=== PATIENT | female | born 1945 | race Caucasian/White ===

== ENCOUNTER 2022-10-28 13:36 | Outpatient (OUT) | payer MEDICARE, SELFPAY ==
--- NOTE | 2022-10-28 | CONS_ITS ---
CONSULTATION DATE: ??10/28/2022 TO:? Marine Glass M.D. CHIEF COMPLAINT:? Includes severe right lower back pain. HISTORY OF PRESENT ILLNESS:? Review of systems, past medical/surgical history were obtained and documented on the health questionnaire and is available upon request. Patient is 77 years old and is having pain in the above mentioned area for the last 20 years.? However, over the last 2-3 years, her pain has been increasing in severity, to the point where she now complains of 7-8/10 pain, sharp in character, with a deep aching component in her right lower back.? It seems to increase with activities such as standing, walking and performing transitioning maneuvers.? She feels most comfortable sitting or assuming the semi-recumbent position.? She denies any change in bowel and bladder habits or new sensorimotor changes in the lower extremities.? EXAMINATION:? Notable for patient having no clinical radiculopathy or myelopathy involving the lower extremities.? Patient had severe pain with lumbar facet joint loading maneuvers on the right side at L4-5 and L5-S1 and associated myofascial spasm of the lumbar paravertebral muscles.? She had point tenderness overlying the L4-5, L5-S1 interspace, and a moderate amount of pain with lumbar axial loading maneuvers.? I could not appreciate any signs consistent with a pathological fracture of her vertebral bodies in the lumbar area.? IMPRESSION:? Our impression is patient appears to have chronic pain secondary to lumbosacral spondylosis and facet loading pain clinically. RECOMMENDATIONS:? I recommend she undergo a lumbosacral MRI without contrast for her lumbago.? Proceed with lumbosacral spine films, PA and lateral views.? I have placed her on baclofen 10 mg pills, half a pill to one pill up to t.i.d. as tolerated and proceed with diagnostic right sided L4-5, L5-S1 facet joint injection under fluoroscopic guidance.? Lastly, I have asked her to initiate aquatic therapy. As part of providing excellent, safe, comprehensive care, the following was completed at our patient's visit: 1. A medication reconciliation and review to ensure accurate knowledge of current/active medications, including asking our patients to inform us about any psjr-shs-hksejsy medications or herbal remedies/nutritional supplements/alternative remedies. 2. A review to specifically ensure our patients have had annual screening for: elevated body mass index (BMI, see intake chart for exact total), tobacco use, screening for depression, and screening for unhealthy alcohol use.? When screening is concerning, patients are provided with education and the specific recommendation to discuss the concerning health issue and treatment options with their primary care provider. STEFAN
== END 2022-10-28 13:37 | disposition home or self-care (01) ==
LOC: PM 13:37
PROVIDERS: PCP Family Medicine; Visit Provider Anesthesiology Pain Medicine
DX: M47.817 Spondylosis without myelopathy or radiculopathy, lumbosacral region (principal); M54.50 Low back pain, unspecified; G89.29 Other chronic pain
CPT/HCPCS: G0463

== ENCOUNTER 2022-10-30 07:53 | Outpatient (RCR) | payer MEDICARE, SELFPAY | END 2022-12-26 13:26 | disposition home or self-care (01) | LOC: PT 07:53 | PROVIDERS: PCP Family Medicine; Visit Provider Anesthesiology Pain Medicine | DX: M47.816 Spondylosis without myelopathy or radiculopathy, lumbar region (principal); Z96.641 Presence of right artificial hip joint | CPT/HCPCS: 97110; 97112; 97113; 97161; 97530 ==

== ENCOUNTER 2022-11-18 07:02 | Day surgery (SDC) | payer MEDICARE, SELFPAY ==
[2022-11-18 07:13] VITALS: BP 104/58; PULSE 59; RESP 16; TEMP 36.4; O2SAT 97
[2022-11-18 07:56] VITALS: BP 129/60; PULSE 54; RESP 20; O2SAT 97
[2022-11-18] MEDS: BUPIVACAINE HCL 0.25% PF 25 MG/10 ML VIAL 4 ML INJ (07:58)
[2022-11-18 07:59] VITALS: BP 129/67; PULSE 55; O2SAT 97
--- NOTE | 2022-11-18 08:57 | W.PM.PROCNOT ---
Date of procedure: 11/18/22 Pre-op diagnosis: Lumbar Spondylosis Post-op diagnosis: same Procedure: Right Lumbar L4/5, L5/S1 facet injection Under fluoroscopic guidance Solution injected: 2millilitersMarcaine 0.25% Anesthesia :none Immediate complications none Time out process compliant After informed consent obtained from the patient placed in the Prone proposition . area was prepped and draped in a sterile fashion using betadine. 25 gauge spinal needle inserted over each of the above mentioned target areas . [place] were directed towards the target under fluoroscopic guidance . after encountering each of the targets , no indication of intravascular intraneuronal or intrathecal needle tip placement. Then 0 .5 to 1 Milliliter was injected at each level. [place] removed postoperatively. patient transferred to recovery in stable condition to be discharged home after meeting criteria Surgeon: Eliecer Rene
== END 2022-11-18 08:04 | disposition home or self-care (01) ==
PROVIDERS: PCP Family Medicine; Visit Provider Anesthesiology Pain Medicine
DX: M47.816 Spondylosis without myelopathy or radiculopathy, lumbar region (principal)
CPT/HCPCS: 64493; 64494; 72100

== ENCOUNTER 2022-11-18 08:08 | Outpatient (OUT) | payer MEDICARE, SELFPAY ==
--- NOTE | 2022-11-18 08:17 | XR_ITS ---
[facility] [place] [address] Patient Name: NGUYEN MARQUEZ MRN: [id number] date: 1945 Sex: F Assigned Patient Location: [facility] Current Patient Location: [facility] Accession/Order Number: [id number] Exam Date: 11/18/2022 08:24 Report Date: 11/18/2022 09:24 At the request of: NAYELI PALOMINO Procedure: XR lumbar spine 2-3V EXAMINATION: XR lumbar spine 2-3V HISTORY: Lumbar Spondylosis COMPARISON: No relevant comparison available. FINDINGS: BONES: Mild levocurvature centered at L3. No acute fracture or spondylolisthesis. Mild degenerative spondylosis. Moderate facet osteoarthropathy DISC SPACES: Mild to moderate multilevel narrowing most significant L4-S1 PARASPINOUS: Negative. No paraspinous abnormality is seen. OTHER: Vascular calcifications XR/XR lumbar spine 2-3V IMPRESSION: Mild to moderate degenerative changes with levocurvature Electronically authenticated by: EILEEN KRUSE Date: 11/18/2022 09:24
== END 2022-11-18 08:09 | disposition home or self-care (01) ==
LOC: RAD 08:10
PROVIDERS: PCP Family Medicine; Visit Provider Anesthesiology Pain Medicine
DX: M47.816 Spondylosis without myelopathy or radiculopathy, lumbar region (principal)
CPT/HCPCS: 72100

== ENCOUNTER 2022-11-28 08:24 | Outpatient (OUT) | payer MEDICARE, SELFPAY ==
--- NOTE | 2022-11-28 08:38 | P.CN_ITS ---
Consult Note: HPI Data of Consult Patient: known to practice within the last 3 years Requesting Physician: Larissa Turner NP Primary Care Provider: Marine Glass MD Consult Narrative cc:: CC: Larissa Turner NP Review of Systems ROS Status of ROS 10 or more systems reviewed and unremarkable except as noted in history and below [facility] Medical History (Updated 11/28/22 @ 08:52 by Larissa Turner NP) Surgical History Meds Home Medications and Allergies Home Medications Medication Instructions Recorded Confirmed Type apixaban 5 mg tablet (Eliquis) 5 mg PO BID 10/28/22 11/18/22 History atenolol 50 mg tablet 75 mg PO DAILY 10/28/22 11/18/22 History baclofen 10 mg tablet 10 mg PO TID 10/28/22 11/18/22 History hydrochlorothiazide 25 mg tablet 25 mg PO DAILY 10/28/22 11/18/22 History lisinopril 20 mg tablet 20 mg PO DAILY 10/28/22 11/18/22 History melatonin 12 mg tablet 30 mg PO DAILY 10/28/22 11/18/22 History multivitamin with iron .Route DAILY 10/28/22 History neuveria vitamin DAILY 10/28/22 History omeprazole 20 mg tablet,delayed 20 mg PO DAILY 10/28/22 11/18/22 History release potassium 10 mg PO DAILY 10/28/22 11/18/22 History temazepam 30 mg capsule 30 mg PO DAILY 10/28/22 11/18/22 History Allergies Allergy/AdvReac Type Severity Reaction Status Date / Time codeine Allergy Unknown Verified 11/18/22 07:16 levofloxacin [From Levaquin] Allergy Unknown Verified 11/18/22 07:16 morphine Allergy Unknown Verified 11/18/22 07:16 Penicillins Allergy Unknown Verified 11/18/22 07:16 tramadol Allergy Unknown Verified 11/18/22 07:16 Exam Constitutional Common normals: no apparent distress, average body habitus, oriented x3, healthy appearing, alert and well nourished General appearance: cooperative HENMT Common normals: normocephalic Head and scalp: normocephalic Mouth: oral and palatal mucosa normal Eye Common normals: PERRL Pupil: PERRL Neck & C-Spine Common normals: full ROM General: normal visual inspection Chest Common normals: inspection of chest normal Respiratory Common normals: normal respiratory effort, no retractions and no use of accessory muscles Back & Pelvis Thoracic spine/upper back: normal to inspection and thoracic ROM normal Lumbar spine/lower back: normal to inspection, lumbar ROM normal, pain with ROM and paraspinal muscle tenderness Pelvis: buttocks normal Sacroiliac joints: SI joints normal Back image (female): 1. pain with right side facet bearing motion Neuro Common normals: oriented x3, CN's II-XII intact bilaterally, moves all extremities, no focal motor deficits, no sensory deficits noted, deep tendon reflexes 2+ bilaterally and gait normal Sensorium/orientation: alert Motor exam: strength 5/5 throughout and no movement abnormalities noted Psych Common normals: mental status grossly normal, thought process normal, cooperative, affect normal, speech normal and activity/motor behavior normal Speech: normal speech Thought process: normal thought process Assessment and Plan Assessment and Plan (1) Lumbar spondylosis: (2) Spondylosis of lumbar region without myelopathy or radiculopathy: (3) Muscle spasm: Plan Pt presents for evaluation after first L4/5 L5/S1 MBB. Patient received 90% relief of pain and was able to complete activities such as cleaning her garage, mowing her grass, and power washing with 1/10 pain fror the first few hours after her procedure. Pt is seldomly taking aleve for pain, baclofen PRN for muscle tightness and spasms. No radiculopathy present. Patient would like to proceed with #2 test injection at l4/5 L5/S1 working towards RFA at these levels. Patient starting PT for right hip next week, pt had right hip replacement 2021. No questions at this time. Will f/u in office after next injection.
== END 2022-11-28 08:25 | disposition home or self-care (01) ==
PROVIDERS: PCP Family Medicine; Visit Provider Nurse Practitioner
DX: M47.816 Spondylosis without myelopathy or radiculopathy, lumbar region (principal); M62.838 Other muscle spasm
CPT/HCPCS: G0463

== ENCOUNTER 2022-12-16 06:44 | Day surgery (SDC) | payer MEDICARE, SELFPAY ==
[2022-12-16 07:08] VITALS: BP 142/79; PULSE 68; RESP 16; TEMP 36.2; O2SAT 97
[2022-12-16 07:31] VITALS: BP 141/70; BP 154/66; PULSE 55; PULSE 56; RESP 20; O2SAT 95; O2SAT 97
[2022-12-16] MEDS: BUPIVACAINE HCL 0.25% PF 25 MG/10 ML VIAL 4 ML INJ (07:32)
--- NOTE | 2022-12-16 08:24 | P.ON_ITS ---
Date of procedure: 12/16/22 Pre-op diagnosis: lumbar spondylosis Post-op diagnosis: same as pre-op Procedure: Right lumbar 4/5, 5/sacral 1 medial branch block Under fluoroscopic guidance Solution injected: 2millilitersMarcaine 0.25% Anesthesia :none Immediate complications none Time out process compliant After informed consent obtained from the patient placed in the Prone proposition . area was prepped and draped in a sterile fashion using Cloraprep .25 gauge spinal needle inserted over each of the above mentioned target areas . [place] were directed towards the target under fluoroscopic guidance . after encountering each of the targets , no indication of intravascular intraneuronal or intrathecal needle tip placement. Then 0 .5 to 1 Milliliter was injected at each level. [place] removed postoperatively. patient transferred to recovery in stable condition to be discharged home after meeting criteria Anesthesia: Local Surgeon: Eliecer Rene Condition: stable
== END 2022-12-16 07:35 | disposition home or self-care (01) ==
PROVIDERS: PCP Family Medicine; Visit Provider Anesthesiology Pain Medicine
DX: M47.816 Spondylosis without myelopathy or radiculopathy, lumbar region (principal)
CPT/HCPCS: 64493; 64494

== ENCOUNTER 2022-12-24 13:06 | Outpatient (OUT) | payer MEDICARE, SELFPAY ==
--- NOTE | 2022-12-24 13:50 | PM.CN ---
Consult Note: HPI Data of Consult Patient: known to practice within the last 3 years Requesting Physician: Larissa Turner NP Primary Care Provider: Marine Glass MD Consult Narrative Reason for consult: MBB #2 right L4/5 L5/S1 f/u Narrative: Bettie Burns a pleasant 77 year old female presents for evaluation of low back pain and right hip pain. Patient recently underwent MBB #2 on the right L4/5 L5/s1 with 100% pain relief and functional improvement immediately following and for hours after the procedure. Patient would like to discuss RFAs. Today is rating her pain 3/10. cc:: CC: Larissa Turner NP Review of Systems ROS Status of ROS 10 or more systems reviewed and unremarkable except as noted in history and below Musculoskeletal Reports: back pain and joint pain (right hip) [facility] Medical History (Updated 11/28/22 @ 08:52 by Larissa Turner NP) Surgical History Meds Home Medications and Allergies Home Medications Medication Instructions Recorded Confirmed Type apixaban 5 mg tablet (Eliquis) 5 mg PO BID 10/28/22 12/16/22 History atenolol 50 mg tablet 75 mg PO DAILY 10/28/22 12/16/22 History baclofen 10 mg tablet 10 mg PO TID 10/28/22 12/16/22 History hydrochlorothiazide 25 mg tablet 25 mg PO DAILY 10/28/22 12/16/22 History lisinopril 20 mg tablet 20 mg PO DAILY 10/28/22 12/16/22 History melatonin 12 mg tablet 30 mg PO DAILY 10/28/22 12/16/22 History multivitamin with iron .Route DAILY 10/28/22 History neuveria vitamin DAILY 10/28/22 History omeprazole 20 mg tablet,delayed 20 mg PO DAILY 10/28/22 12/16/22 History release potassium 10 mg PO DAILY 10/28/22 12/16/22 History temazepam 30 mg capsule 30 mg PO DAILY 10/28/22 12/16/22 History Allergies Allergy/AdvReac Type Severity Reaction Status Date / Time codeine Allergy Unknown Verified 12/16/22 07:29 levofloxacin [From Levaquin] Allergy Unknown Verified 12/16/22 07:29 morphine Allergy Unknown Verified 12/16/22 07:29 Penicillins Allergy Unknown Verified 12/16/22 07:29 tramadol Allergy Unknown Verified 12/16/22 07:29 Exam Constitutional Documenting provider has reviewed patient's vital signs: yes Common normals: no apparent distress, oriented x3, healthy appearing, alert and well nourished General appearance: cooperative Nutritional appearance: overweight HENMT Common normals: normocephalic, hearing grossly normal bilaterally and moist oral mucous membranes Head and scalp: normocephalic Eye Common normals: PERRL Pupil: PERRL Neck & C-Spine Common normals: full ROM General: normal visual inspection Chest Common normals: inspection of chest normal Respiratory Common normals: normal respiratory effort, no retractions and no use of accessory muscles Back & Pelvis Thoracic spine/upper back: normal to inspection Lumbar spine/lower back: normal to inspection, ROM limited, pain with ROM and straight leg raise negative bilaterally Sacroiliac joints: SI joints normal Other: facet loading positive bilaterally. Neuro Common normals: oriented x3, CN's II-XII intact bilaterally, moves all extremities, no focal motor deficits, no sensory deficits noted and deep tendon reflexes 2+ bilaterally Sensorium/orientation: alert Motor exam: strength 5/5 throughout and no movement abnormalities noted Psych Common normals: mental status grossly normal, thought process normal, cooperative, affect normal, speech normal and activity/motor behavior normal Speech: normal speech Thought process: normal thought process Results Additional Findings Additional findings: I have checked an OARRS report on this patient today and there are no aberrancies noted in the prescribing history.?? A drug screen was completed and reviewed within the last year, and if there has not been a drug screen completed we ordered one today to monitor higher risk, state monitored pain medication use. As part of providing excellent, safe, comprehensive care, the following was completed at our patient's visit: 1. A medication reconciliation and review to ensure accurate knowledge of current/active medications, including asking our patients to inform us about any iktu-iuj-srdvgnq medications or herbal remedies/nutritional supplements/alternative remedies. 2. A review to specifically ensure our patients have had annual screening for: elevated body mass index (BMI), tobacco use, screening for depression, and screening for unhealthy alcohol use. When screening is concerning, patients are provided with education and the specific recommendation to discuss the concerning health issue and treatment options with their primary care provider. TEJA today 29% with moderate pain, can only lift very light weights, travel and social life impacted by pain. Assessment and Plan Assessment and Plan (1) Lumbar spondylosis: (2) Muscle spasm: Plan proceed with thermal RFA under fluoroscopy on right L4/5 L5/s1 without sedation for chronic axial low back pain unresponsive to conservative measures. Risks vs benefits discussed. continue Pt continue baclofen 10mg HS
== END 2022-12-24 13:07 | disposition home or self-care (01) ==
LOC: PM 13:06
PROVIDERS: PCP Family Medicine; Visit Provider Nurse Practitioner
DX: M47.816 Spondylosis without myelopathy or radiculopathy, lumbar region (principal); M62.838 Other muscle spasm
CPT/HCPCS: G0463

== ENCOUNTER 2023-01-20 06:47 | Day surgery (SDC) | payer MEDICARE, SELFPAY ==
[2023-01-20 06:54] VITALS: BP 134/63; PULSE 57; RESP 16; O2SAT 99
[2023-01-20] MEDS: 0.9 % SODIUM CHLORIDE 500 ML 50 ML IV (07:11)
[2023-01-20] MEDS: BUPIVACAINE HCL 0.25% PF 25 MG/10 ML VIAL 4 ML INJ (07:38)
[2023-01-20] MEDS: LIDOCAINE HCL 2% 400 MG/20 ML MDV 8 ML INJ (07:38)
[2023-01-20] MEDS: METHYLPREDNISOLONE ACETATE 40 MG/ML VIAL INJ (07:39)
[2023-01-20 07:55] VITALS: BP 97/67; PULSE 59; RESP 16; TEMP 36.5; O2SAT 98
[2023-01-20 07:56] VITALS: BP 98/54; PULSE 70; RESP 16; TEMP 36.5; O2SAT 99
--- NOTE | 2023-01-20 08:10 | W.PM.PROCNOT ---
Date of procedure: 01/20/23 Pre-op diagnosis: Lumbar Spondylosis Post-op diagnosis: same as pre-op Procedure: Right Lumbar 4/5 5/S1 Radiofrequency ablation Under fluoroscopic guidance Rhizotomy was created using radio frequency ablation at 80?C for 90 seconds 1 to 2 lesions created at each site. Post lesioning injection of 2 mL each of 0.25% Marcaine and 2% lidocaine with Depo-Medrol 40mg. 0.5 to 1 mL injected at each site IV in place yes If Intravenous fluids: NS at KVO Anesthesia local 2% lidocaine for Anesthesia Other: MAC Timeout process compliant After informed consent obtained.Patient brought to the procedure room placed in the prone position skin overlying the area was prepped and draped in a sterile fashion using betadine. 25 gauge needle was used to create a skin wheal over each of the targeted areas utilizing 2% lidocaine. A rhizotomy needle with a 10 mm active tip was inserted over each of the anesthetized areas and directed towards each of the medial branches accomplished under fluoroscopic guidance. after encountering the same we had positive sensory stimulation, negative motor stimulation was noted. lesions were then created. Post lesioning, steroid solution was injected needles removed. Patient was transferred to recovery room in stable condition to be discharged home after meeting criteria. Anesthesia: MAC Surgeon: Eliecer Rene Condition: stable
== END 2023-01-20 08:19 | disposition home or self-care (01) ==
PROVIDERS: PCP Family Medicine; Visit Provider Anesthesiology Pain Medicine
DX: M47.816 Spondylosis without myelopathy or radiculopathy, lumbar region (principal)
CPT/HCPCS: 64635; 64636; J1030; J2704

== ENCOUNTER 2023-02-19 07:55 | Outpatient (OUT) | payer MEDICARE, SELFPAY ==
--- NOTE | 2023-02-19 08:04 | P.CN_ITS ---
Consult Note: HPI Data of Consult Patient: known to practice within the last 3 years Requesting Physician: Larissa Turner NP Primary Care Provider: Marine Glass MD Consult Narrative Reason for consult: RFA f/u Narrative: Bettie Burns a pleasant 77 year old female presents for evaluation and management of chronic low back and right hip pain. patient had PAULA in right hip last summer and continues to have pain and weakness in right leg. Today rating pain 6/10 in right hip, low back pain improved since RFA of right L4/5 L5/S1 with 75-80% pain relief and continues to notice improvement. cc:: CC: Larissa Turner NP Review of Systems ROS Status of ROS 10 or more systems reviewed and unremarkable except as noted in history and below Musculoskeletal Reports: back pain PFSH PFSH Medical History Atrial fibrillation ?I48.91 - Unspecified atrial fibrillation (ICD-10) Cataract ?H26.9 - Unspecified cataract (ICD-10) Former smoker ?Z87.891 - Personal history of nicotine dependence (ICD-10) H/O malignant neoplasm of breast ?Z85.3 - Personal history of malignant neoplasm of breast (ICD-10) Hearing deficit ?H91.90 - Unspecified hearing loss, unspecified ear (ICD-10) Hypertension ?I10 - Essential (primary) hypertension (ICD-10) Low back pain ?M54.50 - Low back pain, unspecified (ICD-10) Neck pain ?M54.2 - Cervicalgia (ICD-10) Osteoarthritis ?M19.90 - Unspecified osteoarthritis, unspecified site (ICD-10) Upper back pain ?M54.9 - Dorsalgia, unspecified (ICD-10) Surgical History H/O breast surgery ?Z98.890 - Other specified postprocedural states (ICD-10) H/O cardiac catheterization ?Z98.890 - Other specified postprocedural states (ICD-10) H/O eye surgery ?Z98.890 - Other specified postprocedural states (ICD-10) H/O foot surgery ?Z98.890 - Other specified postprocedural states (ICD-10) H/O shoulder surgery ?Z98.890 - Other specified postprocedural states (ICD-10) H/O total hip arthroplasty ?Z96.649 - Presence of unspecified artificial hip joint (ICD-10) H/O: hysterectomy ?Z90.710 - Acquired absence of both cervix and uterus (ICD-10) History of cholecystectomy ?Z90.49 - Acquired absence of other specified parts of digestive tract (ICD- 10) Meds Home Medications and Allergies Home Medications Medication Instructions Recorded Confirmed Type apixaban 5 mg tablet (Eliquis) 5 mg PO BID 10/28/22 01/20/23 History atenolol 50 mg tablet 75 mg PO DAILY 10/28/22 01/20/23 History baclofen 10 mg tablet 10 mg PO TID 10/28/22 01/20/23 History hydrochlorothiazide 25 mg tablet 25 mg PO DAILY 10/28/22 01/20/23 History lisinopril 20 mg tablet 20 mg PO DAILY 10/28/22 01/20/23 History melatonin 12 mg tablet 30 mg PO DAILY 10/28/22 01/20/23 History multivitamin with iron .Route DAILY 10/28/22 History neuveria vitamin DAILY 10/28/22 History omeprazole 20 mg tablet,delayed 20 mg PO DAILY 10/28/22 01/20/23 History release potassium 10 mg PO DAILY 10/28/22 01/20/23 History temazepam 30 mg capsule 30 mg PO DAILY 10/28/22 01/20/23 History Allergies Allergy/AdvReac Type Severity Reaction Status Date / Time codeine Allergy Unknown Verified 12/16/22 07:29 levofloxacin [From Levaquin] Allergy Unknown Verified 12/16/22 07:29 morphine Allergy Unknown Verified 12/16/22 07:29 Penicillins Allergy Unknown Verified 12/16/22 07:29 tramadol Allergy Unknown Verified 12/16/22 07:29 Exam Constitutional Documenting provider has reviewed patient's vital signs: yes Common normals: no apparent distress, oriented x3, healthy appearing, alert and well nourished General appearance: cooperative HENMT Common normals: normocephalic, hearing grossly normal bilaterally and moist oral mucous membranes Head and scalp: normocephalic Eye Common normals: PERRL Pupil: PERRL Neck & C-Spine Common normals: full ROM General: normal visual inspection Chest Common normals: inspection of chest normal Respiratory Common normals: normal respiratory effort, no retractions and no use of accessory muscles Back & Pelvis Lumbar spine/lower back: ROM limited and straight leg raise negative bilaterally Sacroiliac joints: SI joint(s) abnormal (pain over left PSIS) Extremity Common normals: normal to inspection and full ROM Neuro Common normals: oriented x3, CN's II-XII intact bilaterally, moves all extremities, no focal motor deficits, no sensory deficits noted and deep tendon reflexes 2+ bilaterally Sensorium/orientation: alert Gait (neuro): antalgic Motor exam: strength 5/5 throughout and no movement abnormalities noted Psych Common normals: mental status grossly normal, thought process normal, cooperative, affect normal, speech normal and activity/motor behavior normal Speech: normal speech Thought process: normal thought process Results Additional Findings Additional findings: I have checked an OARRS report on this patient today and there are no aberrancies noted in the prescribing history.?? A drug screen was completed and reviewed within the last year, and if there has not been a drug screen completed we ordered one today to monitor higher risk, state monitored pain medication use. As part of providing excellent, safe, comprehensive care, the following was completed at our patient's visit: 1. A medication reconciliation and review to ensure accurate knowledge of current/active medications, including asking our patients to inform us about any qrpj-oas-oojstrm medications or herbal remedies/nutritional supplements/alternative remedies. 2. A review to specifically ensure our patients have had annual screening for: elevated body mass index (BMI), tobacco use, screening for depression, and screening for unhealthy alcohol use. When screening is concerning, patients are provided with education and the specific recommendation to discuss the concerning health issue and treatment options with their primary care provider. Assessment and Plan Assessment and Plan (1) Lumbar spondylosis: Assessment and Plan: 75-80% continuous pain relief and functional improvement post right L4-5 L5-S1 RFA (2) Chronic right hip pain: (3) Muscle spasm: Plan -declining additional medication therapy -continue current medication regimen -f/u 3 months
== END 2023-02-19 07:56 | disposition home or self-care (01) ==
PROVIDERS: PCP Family Medicine; Visit Provider Nurse Practitioner
DX: M47.896 Other spondylosis, lumbar region (principal); M25.551 Pain in right hip; R25.2 Cramp and spasm
CPT/HCPCS: G0463

== ENCOUNTER 2023-04-02 07:22 | Emergency (ER) | payer MEDICARE, SELFPAY ==
[2023-04-02 07:28] VITALS: BP 156/61; PULSE 62; RESP 18; TEMP 36.4; O2SAT 98; BMI 28.3
--- NOTE | 2023-04-02 07:40 | PC.NURSE ---
pt with a chronic history of back issues c/o R mid back pain into R buttock/down leg since yesterday. pt denies any known injury. had gotten a nerve ablasion in january and has not had any issues since. no urinary sx
--- NOTE | 2023-04-02 08:18 | ED_ITS ---
HPI - Back Pain/Injury General Chief Complaint: Back Pain/Injury Stated Complaint: BACK PAIN Time Seen by Provider: 04/02/23 07:52 Source: patient and family Mode of arrival: Wheelchair Limitations: physical limitation History of Present Illness HPI Narrative: patient here complaining of back pain. She is under the care of local pain management and is scheduled to see them next week. She had an ablation done in [facility]. She's had good relief but now recently she is developing lower lumbar pain rating down her right buttock. She does not have any bowel incontinence but she does have a spastic bladder that is being managed by her urologist. She's not had fever shakes or chills. She has no blood in her urine. She does not have a pain radiation into the leg or a numbness or weakness into the foot that she is aware of. She says she cannot take narcotic analgesics. She says she is okay with taking Toradol to her knowledge. She cannot take Ultram. She's not on any steroids at this time. She's not had any change in activity. Related Data Home Medications Medication Instructions Recorded Confirmed apixaban 5 mg tablet (Eliquis) 5 mg PO BID 10/28/22 01/20/23 atenolol 50 mg tablet 75 mg PO DAILY 10/28/22 01/20/23 baclofen 10 mg tablet 10 mg PO TID 10/28/22 01/20/23 hydrochlorothiazide 25 mg tablet 25 mg PO DAILY 10/28/22 01/20/23 lisinopril 20 mg tablet 20 mg PO DAILY 10/28/22 01/20/23 melatonin 12 mg tablet 30 mg PO DAILY 10/28/22 01/20/23 multivitamin with iron .Route DAILY 10/28/22 neuveria vitamin DAILY 10/28/22 omeprazole 20 mg tablet,delayed 20 mg PO DAILY 10/28/22 01/20/23 release potassium 10 mg PO DAILY 10/28/22 01/20/23 temazepam 30 mg capsule 30 mg PO DAILY 10/28/22 01/20/23 trospium 20 mg tablet 20 mg PO Q12H 04/02/23 04/02/23 Previous Rx's Medication Instructions Recorded baclofen 10 mg tablet 10 mg PO TID #270 tabs 03/23/23 Allergies Allergy/AdvReac Type Severity Reaction Status Date / Time codeine Allergy Unknown Verified 04/02/23 07:33 levofloxacin [From Levaquin] Allergy Unknown Verified 04/02/23 07:33 morphine Allergy Unknown Verified 04/02/23 07:33 Penicillins Allergy Unknown Verified 04/02/23 07:33 tramadol Allergy Unknown Verified 04/02/23 07:33 PFSH PFSH Medical History Atrial fibrillation ?I48.91 - Unspecified atrial fibrillation (ICD-10) Cataract ?H26.9 - Unspecified cataract (ICD-10) Former smoker ?Z87.891 - Personal history of nicotine dependence (ICD-10) H/O malignant neoplasm of breast ?Z85.3 - Personal history of malignant neoplasm of breast (ICD-10) Hearing deficit ?H91.90 - Unspecified hearing loss, unspecified ear (ICD-10) Hypertension ?I10 - Essential (primary) hypertension (ICD-10) Low back pain ?M54.50 - Low back pain, unspecified (ICD-10) Neck pain ?M54.2 - Cervicalgia (ICD-10) Osteoarthritis ?M19.90 - Unspecified osteoarthritis, unspecified site (ICD-10) Upper back pain ?M54.9 - Dorsalgia, unspecified (ICD-10) Surgical History H/O breast surgery ?Z98.890 - Other specified postprocedural states (ICD-10) H/O cardiac catheterization ?Z98.890 - Other specified postprocedural states (ICD-10) H/O eye surgery ?Z98.890 - Other specified postprocedural states (ICD-10) H/O foot surgery ?Z98.890 - Other specified postprocedural states (ICD-10) H/O shoulder surgery ?Z98.890 - Other specified postprocedural states (ICD-10) H/O total hip arthroplasty ?Z96.649 - Presence of unspecified artificial hip joint (ICD-10) H/O: hysterectomy ?Z90.710 - Acquired absence of both cervix and uterus (ICD-10) History of cholecystectomy ?Z90.49 - Acquired absence of other specified parts of digestive tract (ICD- 10) Social History Smoking status: Never smoker Exam Narrative Exam Narrative: patient sitting at forty-five degrees. Moves slowly and with caution. Problem focus examination Deep tendon reflexes patella two over four symmetrical. Achilles Bilaterally. Extensor Hallucis Longus Function Normal. Knee Flexion and Straight Leg Raising Reproduces Discomfort but No Radiculopathy. Her Skin Is Warm and Dry. She Has Good Perfusion to the Lower Extremities with No Evidence of Tissue Ischemia. Constitutional Vital Signs, click to edit/add: Last Vital Signs Temp 97.6 F 04/02/23 07:28 Pulse 62 04/02/23 07:28 Resp 18 04/02/23 07:28 BP 156/61 H 04/02/23 07:28 Pulse Ox 98 04/02/23 07:28 O2 Del Method Room Air 04/02/23 07:28 Course Vital Signs Vital signs: Vital Signs Temperature 97.6 F 04/02/23 07:28 Pulse Rate 62 04/02/23 07:28 Respiratory Rate 18 04/02/23 07:28 Blood Pressure 156/61 H 04/02/23 07:28 Pulse Oximetry 98 04/02/23 07:28 Oxygen Delivery Method Room Air 04/02/23 07:28 Temperature 97.6 F 04/02/23 07:28 Pulse Rate 62 04/02/23 07:28 Respiratory Rate 18 04/02/23 07:28 Blood Pressure 156/61 H 04/02/23 07:28 Pulse Oximetry 98 04/02/23 07:28 Oxygen Delivery Method Room Air 04/02/23 07:28 MDM - Back Pain/Injury MDM Narrative Medical decision making narrative: this patient is on a liquid blood thinner making therapeutic intervention even more complex. We will place her on steroids. I moved up her appointment with pain management until April 07. At that time they can determine if she should continue steroids. I explained to her that she has no physical findings to suggest any cauda equina or neurological emergency. She cannot take any of the narcotics. We'll recommend Toradol/continue her muscle relaaxants/prednisone burst. 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 Patient Disposition: Home, Self-Care Time of Disposition Decision: 08:37 Prescriptions / Home Meds: No Action baclofen 10 mg tablet 10 mg PO TID Qty: 270 0RF Rx Instructions: take 1/2 - 1 tab three times daily trospium 20 mg tablet 20 mg PO Q12H lisinopril 20 mg tablet 20 mg PO DAILY atenolol 50 mg tablet 75 mg PO DAILY Eliquis 5 mg tablet 5 mg PO BID omeprazole 20 mg tablet,delayed release (DR/EC) 20 mg PO DAILY temazepam 30 mg capsule 30 mg PO DAILY hydrochlorothiazide 25 mg tablet 25 mg PO DAILY melatonin 12 mg tablet 30 mg PO DAILY neuveria vitamin DAILY multivitamin with iron [One Tablet Daily/Iron] .Route DAILY potassium 10 mg PO DAILY baclofen 10 mg tablet 10 mg PO TID Rx Instructions: 1/2 to 1 tab three times daily Additional Instructions: see pain management this coming Thursday as advised. Prednisone/Toradol, try to use at nighttime only Stand Alone Forms: Portal Instructions Referrals: Marine Glass MD [Primary Care Provider] - 1 week
[2023-04-02] MEDS: KETOROLAC TROMETHAMINE 10 MG TABLET 20 MG PO (08:46)
[2023-04-02 08:47] LABS: Bilirubin Urine NEGATIVE (NEGATIVE); Blood Urine MODERATE (NEGATIVE); Clarity Urine CLEAR (CLEAR); Color Urine LT. YELLOW (YELLOW); Glucose Urine UA NEGATIVE (NEGATIVE); Ketones Urine NEGATIVE (NEGATIVE); Leukocyte Esterase Urine TRACE (NEGATIVE); Nitrite Urine NEGATIVE (NEGATIVE); Protein Urine NEGATIVE (NEG/TRACE); Specific Gravity Urine 1.025 (1.005-1.025); Urobilinogen Urine 0.2 EU/dL (0.2-1.0)
[2023-04-02 08:48] LABS: Urine Microscopic Indicated YES
[2023-04-02 08:56] LABS: Bacteria Urine TRACE #/HPF (NONE SEEN); Mucus Urine NONE SEEN (NONE SEEN); WBC Urine 0-2 #/HPF (NONE SEEN)
[2023-04-02 08:57] LABS: Cast Seen? NONE SEEN #/LPF (NONE SEEN); Crystals Seen? None Seen #/HPF (None Seen); Squamous Epithelial Cell Urine FEW #/LPF (NONE/RARE); Urine Culture Indicated NO
== END 2023-04-02 08:59 | disposition home or self-care (01) ==
PROVIDERS: Emergency Provider Emergency Medicine Emergency Medical Services; PCP Family Medicine
DX: M47.816 Spondylosis without myelopathy or radiculopathy, lumbar region (principal); I48.91 Unspecified atrial fibrillation; H91.90 Unspecified hearing loss, unspecified ear; M19.90 Unspecified osteoarthritis, unspecified site; Z98.890 Other specified postprocedural states; Z87.891 Personal history of nicotine dependence; Z96.649 Presence of unspecified artificial hip joint; Z79.01 Long term (current) use of anticoagulants; Z79.899 Other long term (current) drug therapy; Z90.710 Acquired absence of both cervix and uterus; Z90.49 Acquired absence of other specified parts of digestive tract
CPT/HCPCS: 81001; 99283

== ENCOUNTER 2023-04-07 12:32 | Outpatient (OUT) | payer MEDICARE, SELFPAY ==
--- NOTE | 2023-04-07 | CONS_ITS ---
PROCEDURE DATE: ??04/07/2023 PROCEDURE:? Trigger point injection right lumbar iliocostalis muscle in the office. PREOPERATIVE DIAGNOSIS:? Pain secondary to lumbosacral spondylosis, complicated by myofascial spasm of the lumbar iliocostalis muscle on the right side. POSTOPERATIVE DIAGNOSIS:? Pain secondary to lumbosacral spondylosis, complicated by myofascial spasm of the lumbar iliocostalis muscle on the right side. SOLUTION USED FOR INJECTION:? 2 mL of 2% lidocaine, 2 mL of 0.25% Marcaine and 10 mg of Kenalog, total of 5 mL, and 3 mL use IMMEDIATE COMPLICATIONS:? None. PROCEDURE:? After informed consent was obtained from the patient, placed in the prone position.? Skin overlying the area was prepped with alcohol.? A 25 gauge 1 ?? needle was introduced into the right lumbar iliocostalis muscle at the L4 level, approximately 3 cm from the midline.? Needle tip was advanced until there was a mild twitch response, at which point we injected 3 mL of solution.? Post procedure, needle was removed.? No indication of intravascular or intraneural needle tip placement was noted.? Patient reports reduction in pain post procedurally. In the interim, I have asked her to increase her baclofen 10 mg pills 1-2 pills up to b.i.d. as tolerated. MTDD
== END 2023-04-07 12:33 | disposition home or self-care (01) ==
LOC: PM 12:33
PROVIDERS: PCP Family Medicine; Visit Provider Anesthesiology Pain Medicine
DX: M47.816 Spondylosis without myelopathy or radiculopathy, lumbar region (principal); M62.838 Other muscle spasm
CPT/HCPCS: 20552

== ENCOUNTER 2023-05-14 18:13 | Emergency (ER) | payer MEDICARE, SELFPAY ==
--- OUTSIDE RECORDS SUMMARY | 2023-05-14 18:17 | XMS_ITS | CCD ---
Author Name Unknown Address [address] [place] [address] Organization [facility] Care Team Providers Care Coat Cutter Name Role Phone PHYSICIAN, DEFAULT Unavailable Unavailable PHYSICIAN, DEFAULT Unavailable Unavailable Elliot Starks MD Primary Care Provider RAUDEL, DR ELLIOT Nayak Primary Care Unavailable ANETA EDUARDO Admitting Unavailable ANETA EDUARDO Attending Unavailable ANETA EDUARDO Consulting Unavailable RAUDEL, DR ELLIOT Nayak Admitting Unavailable RAUDEL, DR ELLIOT Nayak Attending Unavailable STARKS, DR ELLIOT Nayak Primary Care Unavailable STARKS, DR ELLIOT Nayak Consulting Unavailable STARKS, DR ELLIOT Nayak Primary Care Unavailable PAY, DR MANN Consulting Unavailable PAY, DR MANN Admitting Unavailable PAY, DR MANN Attending Unavailable LUANA VILLAFANA Consulting Unavailable KNJOAQUÍN CASTILLO Consulting Unavailable Elliot Starks Unavailable Elliot Starks MD Primary Care Provider [phone] MD Elliot Starks Attending Provider Elliot Starks Admitting Unavailable Elliot Starks Attending Unavailable ELLIOT STARKS Primary Care Physician Alfreda Miller Attending Unavailable ELLIOT STARKS Referring Unavailable Alfreda Miller Attending Unavailable Allergies Allergy Classification Reported Allergen(s) Allergy Type Date of Onset Reaction(s) Facility (3 sources) Acetaminophen / HYDROcodone Drug Allergy 03-19-20 Unknown [facility] (16 sources) Baclofen; 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: [baclofen] Drug Allergy 03-19-20 Unknown [facility] (6 sources) Codeine; 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: [codeine] Drug Allergy 08-09-19 09 [facility] (4 sources) levoFLOXacin; 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: [levofloxacin] Drug Allergy 03-19-20 [facility] (16 sources) Morphine; 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: [morphine] Drug Allergy 08-09-19 09 [facility] (3 sources) oxyCODONE Drug Allergy 12-03-19 16 [facility] (2 sources) Penicillins Drug Allergy 12-03-19 16 [facility] (1 source) Baclofen Drug Allergy [facility] (1 source) Codeine Drug Allergy [facility] (13 sources) levoFLOXacin; 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: [Levaquin] Drug Allergy Unknown [facility] (1 source) Morphine Drug Allergy 05-04-18 94 [facility] (1 source) oxyCODONE Drug Allergy 05-04-19 05 [facility] (1 source) Penicillins Drug allergy (disorder) 05-04-18 93 [facility] (2 sources) traMADol; 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: [Ultram] Drug Allergy [facility] (11 sources) Codeine Drug Allergy Unknown [facility] (13 sources) Penicillin; 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: [penicillin] Drug Allergy Unknown [facility] (12 sources) traMADol; 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: [tramadol] Drug Allergy Unknown [facility] (12 sources) zolpidem; 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: [zolpidem] Drug Allergy Unknown [facility] (1 source) Penicillins Drug Allergy 12-03-19 16 [facility] (1 source) Morphine; 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: [Morphine Sulfate] Drug Allergy [facility] (1 source) zolpidem; 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: [Ambien] Drug Allergy [facility] (1 source) Non-steroidal anti-inflammatory agent Drug allergy 02-02-20 13 Unknown [facility] (1 source) sulfADIAZINE Drug Allergy Comment:Sulfa [facility] (1 source) Ultram *ANALGESICS - OPIOID* Propensity to adverse reactions Unknown [facility] (1 source) Vioxx *ANALGESICS - ANTI-INFLAMMATORY * Propensity to adverse reactions Unknown [facility] (1 source) Penicillin G Benzathine & Proc Drug allergy Unknown [facility] (1 source) Morphine Sulfate (Concentrate) *ANALGESICS - OPIOI Propensity to adverse reactions Unknown [facility] (1 source) Allergies Reconciled Propensity to adverse reactions Unknown [facility] (1 source) patient allergy list reviewed by nurse or physicia Propensity to adverse reactions 02-02-20 Comment:Done [facility] (1 source) Vicodin *ANALGESICS - OPIOID* Propensity to adverse reactions Unknown [facility] (1 source) calcitonin Drug allergy Unknown [facility] Other Medications Current Medications Medication Drug Class(es) Dates Sig (Normalized) Sig (Original) apixaban 5 mg oral tablet (15 sources) Factor Xa Inhibitor Start: 02-11-2023 Eliquis 5 mg oral tablet Refills(s) 0 Start Date: 02/11/23 Status: Ordered Start: 08-31-2017 take 1 tablet by mirza th twice daily apixaban (ELIQUIS) 5 mg tab(s) Take 5 mg by mouth twice daily. 0 08/31/2017 Active Comment on above: Take 5 mg by mouth t wice daily. azithromycin 250 mg oral tablet (5 sources) Macrolide Antimicrobial Start: 03-30-2023 Azithromycin 250 MG as directed Orally 2 tabs po today, then 1 tab daily x 4 more days for 5 Mar, Active Start: 07-17-2022 Azithromycin 2 50 MG as directed Orally 2 tabs po today, then 1 tab daily x 4 more days for 5 Jul, Active benzonatate 200 mg oral capsule (4 sources) Non-narcotic Antitussive Start: 07-17-2022 take 1 capsule by mouth every eight hours Benzonatate 200 MG 1 capsule Orally Three times a day for 10 day(s) Jul, Active estradiol 0.1 mg/ml vaginal cream (1 source) Estrogen Start: 02-11-2023 Estrace 0.1 mg/g Cream See Instructions, 42.5 gm, Refill(s) 3, apply pea size amount to urethra/inner vagina 3x/week x 1 month, then 2x/week for maintainence, [id number], 165, cm, 02/11/23 10:41:00 EDT, Height/Length Dosing, 77.5, kg, 02/11/23 10:41:00 EDT, Weight Dosing Start Date: 02/11/23 Status: Ordered hydroCHLOROthiazide 25 mg oral tablet (12 sources) Thiazide Diuretic Start: 02-11-2023 take 1 mg by mouth once daily hydrochlorothiazide 25 mg Tab mg tab(s), Oral, Daily, Refills(s) 0 Start Date: 02/11/23 Status: Ordered Iron Chews (1 source) Start: 02-11-2023 take 1 mg by mouth once daily Iron Chews mg, Oral, Daily, Refills(s) 0 Start Date: 02/11/23 Status: Ordered lisinopril 20 mg oral tablet (15 sources) Angiotensin Converting Enzyme Inhibitor Start: 02-11-2023 lisinopril 20 mg Tab Refills(s) 0 Start Date: 02/11/23 Status: Ordered Start: 02-22-2019 lisinopril (ZE STRIL, PRINIVIL) 20 mg tablet melatonin 10 mg oral tablet (1 source) Start: 02-11-2023 take 1 mg by mouth once daily at bedtime melatonin 10 mg oral tablet mg tab(s), Oral, Once a day (at bedtime), Refills(s) 0 Start Date: 02/11/23 Status: Ordered 24 hr mirabegron 50 mg extended release oral tablet (1 source) beta3-Adrenergic Agonist Start: 02-11-2023 take 1 tablet by mouth once daily mirabegron 50 mg oral tablet, extended release 50 mg = 1 tab(s), Oral, Daily, # 30 tab(s), Refills(s) 11, Pharmacy: [id number], 165, cm, 02/11/23 10:41:00 EDT, Height/Length Dosing, 77.5, kg, 02/11/23 10:41:00 EDT, Weight Dosing Start Date: 02/11/23 Status: Ordered Aleve (1 source) Nonsteroidal Anti-inflammatory Drug Start: 02-11-2023 take 1 mg by mouth every twelve hours Aleve mg, Oral, q12hr, Refills(s) 0 Start Date: 02/11/23 Status: Ordered nitrofurantoin, macrocrystals 25 mg / nitrofurantoin, monohydrate 75 mg oral capsule (4 sources) Nitrofuran Antibacterial Start: 06-23-2022 take 1 capsule by mouth every twelve hours Nitrofurantoin Monohyd Macro 100 MG 1 capsule with food Orally every 12 hrs for 7 days Jun, Active omeprazole 40 mg delayed release oral capsule (15 sources) Proton Pump Inhibitor Start: 02-11-2023 omeprazole 40 mg Cap-DR Refills(s) 0 Start Date: 02/11/23 Status: Ordered Omeprazole 40 mg TAKE 2 CAPSULES DAILY Active take 1 capsule by mouth once parker ly Omeprazole 40 MG 1 capsule 30 minutes before morning meal Orally Once a day Active Omeprazole (PRIL OSEC) 40 mg capsule Take 20 mg by mouth twice daily. 0 Active Comment on above: Take 20 mg by mouth twice daily. 24 hr oxybutynin chloride 5 mg extended release oral tablet (8 sources) Cholinergic Muscarinic Antagonist Start: 3 take 1 tablet by mouth every twenty-four hours Ditropan XL 5 MG 1 tablet Orally Once a day for 90 days Jun, Active microencapsulated potassium chloride 20 meq extended release oral tablet (14 sources) take 1 tablet by mouth every twenty-four hours Klor-Con M20 20 MEQ 1 tablet with food Orally Once a day Active potassium chlori de (KLOR-CON 10) 10 mEq tablet Take 10 mEq by mouth once daily. 0 Active Comment on above: Take 10 mEq by mouth once daily. sulfamethoxazole 800 mg / trimethoprim 160 mg oral tablet (7 sources) Dihydrofolate Reductase Inhibitor Antibacterial, Sulfonamide Antimicrobial Start: 3 take 1 tablet by mouth every twenty-four hours Bactrim DS 800-160 MG 1 tablet Orally daily for 30 days Oct, Active Start: 08-11-2022 take 1 tablet by mirza th every twelve hours Bactrim DS 800-160 MG 1 tablet Orally Twice a day for 10 day(s) Oct, Active temazepam 30 mg oral capsule (15 sources) Benzodiazepine Start: 02-19-2023 take 1 capsule by mouth at bedtime Temazepam 30 MG 1 capsule Orally at bedtime for 90 days Feb, Active Start: 02-11-2023 temazepam 30 m g Cap Refills(s) 0 Start Date: 02/11/23 Status: Ordered Start: 08-23-2018 take 1 capsule by [facility] at bedtime Temazepam 30 MG 1 capsule Orally at bedtime for 90 days May, Active triamcinolone acetonide 1 mg/ml topical cream (2 sources) Corticosteroid Start: 10-30-2022 Triamcinolone Acetonide 0.1 % 1 application Externally Twice a day for 7 days Oct, Active Trospium (1 source) Cholinergic Muscarinic Antagonist Trospium Chloride Active Completed/Discontinued Medications Medication Drug Class(es) Dates Sig (Normalized) Sig (Original) atenolol 50 mg oral tablet (14 sources) beta-Adrenergic Eli Start: 08-31-2017 atenolol (TENORMIN) 50 mg tablet 25 mg twice daily. 0 08/31/2017 Active take 1 tablet by mouth once watson y Atenolol 50 MG 1 1/2 TAB Orally Once a day Active Comment on above: 25 mg twice daily. cyclobenzaprine hydrochloride 10 mg oral tablet (3 sources) Muscle Relaxant Start: 2018 take 1 tablet by mouth every twelve hours as needed cyclobenzaprine (FLEXERIL) 10 mg tablet Take 10 mg by mouth twice daily as needed. 0 01/13/2019 Active Comment on above: Take 10 mg by mouth twice daily as needed. flecainide acetate 100 mg oral tablet (3 sources) Antiarrhythmic Start: 2017 flecainide (TAMBOCOR) 100 mg tablet Take 100 mg by mouth. 0 10/06/2017 Active Comment on above: Take 100 mg by mouth . hydroCHLOROthiazide 25 mg / losartan potassium 100 mg oral tablet (3 sources) Thiazide Diuretic, Angiotensin 2 Receptor Eli Start: 2018 losartan-hydrochlorot hiazide (HYZAAR) 100-25 mg per tablet lifitegrast 50 mg/ml ophthalmic solution (3 sources) Lymphocyte Function-Associated Antigen-1 Antagonist Start: 2018 XIIDRA 5 % dpet LORazepam 1 mg oral tablet (3 sources) Benzodiazepine LORazepam (ATIVA N) 1 mg tablet Take 1 mg by mouth. 0 Active Comment on above: Take 1 mg by mouth. meperidine hydrochloride 50 mg oral tablet (3 sources) Opioid Agonist meperidine (JEREMIAH ROL) 50 mg tablet Take 25 mg by mouth as needed. 0 Active Comment on above: Take 25 mg by mouth as needed. SUMAtriptan 25 mg oral tablet (14 sources) Serotonin-1b and Serotonin-1d Receptor Agonist Start: 2016 SUMAtriptan (IMITREX) 25 mg tablet Take 25 mg by mouth as needed. 0 09/12/2016 Active Comment on above: Take 25 mg by mouth as needed. 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; 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: [Carcinoma in situ of breast] Onset: 10-30-2015 12-03-2015 Chronic Cancer of breast (19 sources) History of malignant neoplasm of breast; 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: [Personal history of malignant neoplasm of breast] Onset: 09-23-2017 09-23-2017 Episodic Cardiac dysrhythmias (17 sources) Chronic atrial fibrillation; 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: [Chronic atrial fibrillation, unspecified] Onset: 12-11-2016 03-24-2018 Chronic E Codes: Natural/environment (1 source) Exposure to other specified factors, initial encounter; 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: [EXPOSURE OTHER SPEC FACTORS INITIAL] Onset: 04-29-2022 Episodic Esophageal disorders (1 source) Gastro-esophageal reflux disease with esophagitis; 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: [Gastro-esophageal reflux disease with esophagitis, without bleeding] Onset: 05-04-1957 Chronic Essential hypertension (15 sources) Essential (primary) hypertension; 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: [Essential hypertension] Onset: 10-06-2017 Chronic Fluid and electrolyte disorders (4 sources) Dehydration; 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: [Hypokalemia] Onset: 06-11-2022 Episodic Gastroduodenal ulcer (except hemorrhage) (1 source) Peptic ulcer, site unspecified, unspecified as acute or chronic, without hemorrhage or perforation; 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: [PU SITE UNS UNS AC/CHR NO HEM/PERF] Onset: 04-29-2022 Chronic Genitourinary symptoms and ill-defined conditions (2 sources) Mixed incontinence; 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: [Incontinence] Onset: 02-11-2023 Chronic Genitourinary symptoms and ill-defined conditions (20 sources) Dysuria; 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: [Dysuria] Onset: 04-14-2022 Episodic Headache; including migraine (13 sources) Migraine; 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: [Migraine, unspecified, not intractable, without status migrainosus] Chronic Headache; including migraine (4 sources) Headache; including migraine; 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: [HEADACHE UNSPECIFIED] Onset: 06-09-2022 Malaise and fatigue (13 sources) Other fatigue; 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: [Fatigue] Onset: 06-11-2022 Episodic Osteoarthritis (14 sources) Unspecified osteoarthritis, unspecified site; 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: [Localized, primary osteoarthritis of the pelvic region and thigh] Onset: 06-11-2022 Chronic Other aftercare (1 source) Other director long term care (current) drug therapy; 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: [OTH DIRECTOR [facility] CURRENT DRUG THERAPY] Onset: 06-11-2022 Episodic Other aftercare (1 source) Long-term current use of anticoagulant; 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] Onset: 02-11-2023 Episodic Other bone disease and musculoskeletal deformities (12 sources) Other specified disorders of bone, shoulder; 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: [Pain of right scapula] Episodic Other diseases of bladder and urethra (11 sources) Overactive bladder; 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: [Overactive bladder] Chronic Other diseases of bladder and urethra (3 sources) Overactive bladder Chronic Other injuries and conditions due to external causes (4 sources) Foreign body in left ear, initial encounter; 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: [FOREIGN BODY LT EAR INITIAL ENCNTR] Onset: 04-26-2022 Episodic Other lower respiratory disease (1 source) Personal history of pneumonia (recurrent); 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: [PERSONAL HX OF PNEUMONIA RECURRENT] Onset: 06-11-2022 Episodic Other non-traumatic joint disorders (10 sources) Arthralgia of the pelvic region and thigh; 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: [Pain in right hip] Episodic Other non-traumatic joint disorders (1 source) Pain in right hip; 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: [Hip pain, right] Episodic Other non-traumatic joint disorders (1 source) Pain in right hip joint; 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: [Pain in right hip] Episodic Other screening for suspected conditions (not mental disorders or infectious disease) (15 sources) Patient encounter status; 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: [Encounter for screening mammogram for malignant neoplasm of breast] Onset: 10-06-2014 Episodic Other skin disorders (1 source) Dyshidrosis [pompholyx] Episodic Other upper respiratory infections (14 sources) Acute upper respiratory infection; 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: [Acute upper respiratory infection, unspecified] Onset: 05-10-2015 Episodic Prolapse of female genital organs (1 source) Herniation of rectum into vagina; 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: [Rectocele without mention of uterine prolapse] Onset: 08-08-2008 Chronic Residual codes; unclassified (1 source) Acquired absence of other specified parts of digestive tract; 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: [ACQ ABSENCE OTH PART DIGESTV TRACT] Onset: 06-11-2022 Episodic Residual codes; unclassified (1 source) Acquired absence of both cervix and uterus; 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: [ACQUIRED ABSENCE BOTH CERVIX AND UTERUS] Onset: 06-11-2022 Episodic Residual codes; unclassified (11 sources) Insomnia; 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: [Insomnia, unspecified] Episodic Residual codes; unclassified (1 source) Insomnia, unspecified; 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: [Insomnia] Episodic Residual codes; unclassified (1 source) Family history of breast cancer; 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: [Family history of malignant neoplasm of breast] Episodic Residual codes; unclassified (1 source) Family history of malignant neoplasm of gastrointestinal tract; 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: [Family history of malignant neoplasm of digestive organs] Episodic Screening and history of mental health and substance abuse codes (3 sources) Personal history of nicotine dependence; 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: [H/O: Disorder] Onset: 04-29-2022 Episodic Spondylosis; intervertebral disc disorders; other back problems (7 sources) Low back pain; 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: [Lumbar back pain] Onset: 07-04-2013 Episodic Superficial injury; contusion (1 source) Abrasion of left ear, initial encounter; 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: [ABRASION LEFT EAR INITIAL ENCOUNTER] Onset: 04-29-2022 Episodic Unclassified (1 source) CONTACT W/AND (SUSP) EXPOS COVID-19; 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: [CONTACT W/AND (SUSP) EXPOS COVID-19] Onset: 06-11-2022 Unclassified (1 source) Drug therapy finding 02-11-2023 Urinary tract infections (16 sources) Urinary tract infection, site not specified; 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: [Acute urinary tract infection] Onset: 06-11-2022 Episodic Viral infection (12 sources) Disease caused by 2019-nCoV; 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: [COVID-19] Past or Other Problems Problem Classification Problem Date Documented Date Episodic/Chronic Gastroduodenal ulcer (except hemorrhage) (2 sources) Personal history of peptic ulcer disease; 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: [Acute gastric ulcer without hemorrhage, without perforation AND without obstruction] Onset: 05-11-2017 Episodic Other connective tissue disease (1 source) Muscle pain; 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: [Unspecified myalgia and myositis] Onset: 09-15-2016 Episodic Other endocrine disorders (1 source) Disorder of endocrine system; 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: [Unspecified endocrine disorder] Onset: 09-14-2017 Episodic Other liver diseases (1 source) Elevated levels of transaminase & lactic acid dehydrogenase; 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: [Nonspecific elevation of levels of transaminase or lactic acid dehydrogenase (LDH)] Onset: 06-17-2018 Episodic Other nutritional; endocrine; and metabolic disorders (2 sources) Body mass index 25-29 - overweight; 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: [Body mass index 29.0-29.9, adult] Onset: 06-23-2016 Episodic Other nutritional; endocrine; and metabolic disorders (1 source) Overweight; 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: [Overweight] Onset: 04-23-2018 Episodic Other skin disorders (1 source) Alopecia; 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: [Nonscarring hair loss, unspecified] Onset: 07-04-2013 Episodic Other skin disorders (1 source) Other seborrheic keratosis; 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: [Seborrheic keratosis] Onset: 01-24-2015 Episodic Pneumonia (except that caused by tuberculosis or sexually transmitted disease) (1 source) Pneumonia; 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: [Pneumonia, unspecified organism] Onset: 12-11-2016 Episodic Unclassified (6 sources) Lumbar back pain; 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: [Lumbar back pain] Unclassified (1 source) Right lumbar pain M54.50 Results Test Name Value Interpretation Reference Range Facility Ambulatory Visit Summaryon 1 Ambulatory Visit Summary NGUYEN BURNS :1945 Visit Date:02/11/2023 Ambulatory Visit Instructions Your Diagnosis Frequent UTI Microscopic hematuria Mixed incontinence Anticoagulated History of breast cancer Former smoker Tests Performed Urnls Dip Stick Auto w/o Microscopy POC 50964 Your Care Team Attending Physician - Paul VILLEGAS, Alfreda Palacios Primary Care Physician - ELLIOT STARKS MD Referring Physician - ELLIOT STARKS MD This Is Your Medications List estradiol topical (Estrace 0.1 mg/g Cream) vibegron (Gemtesa 75 mg oral tablet) Contact prescribing physician if questions or concerns apixaban (Eliquis 5 mg oral tablet) carbonyl iron (Iron Chews) hydrochlorothiazide (hydrochlorothiazide 25 mg Tab) lisinopril (lisinopril 20 mg Tab) melatonin (melatonin 10 mg oral tablet) naproxen (Aleve) omeprazole (omeprazole 40 mg Cap-DR) temazepam (temazepam 30 mg Cap) Procedures Performed Appendectomy, Cardiac ablation system, Cataracts, Cholecystectomy, Hip replacement, Lumpectomy of left breast, Rotator cuff, ROSA - Total abdominal hysterectomy. Discharge Vitals Height 165 cm Height 65 in Weight 77.5 kg Weight 170.5 lb BMI 28.47 What to do next Scheduled Follow-Up Appointments Thursday 8:45 AM EST With: Alfreda Miller MD Where: [facility] Lab Reportson 02-11-2023 Lab Reports [id number] 1#[id number] [facility] Patient Educationon 02-12-20 23 Patient Education Obstetrics and Gynecology Kegel Exercises Kegel exercises can help strengthen your pelvic floor muscles. The pelvic floor is a group of muscles that support your rectum, small intestine, and bladder. In females, pelvic floor muscles also help support the uterus. These muscles help you control the flow of urine and stool (feces). Kegel exercises are painless and simple. They do not require any equipment. Your provider may suggest Kegel exercises to: ? Improve bladder and bowel control. ? Improve sexual response. ? Improve weak pelvic floor muscles after surgery to remove the uterus (hysterectomy) or after , in females. ? Improve weak pelvic floor muscles after prostate gland removal or surgery, in males. Kegel exercises involve squeezing your pelvic floor muscles. These are the same muscles you squeeze when you try to stop the flow of urine or keep from passing gas. The exercises can be done while sitting, standing, or lying down, but it is best to vary your position. Ask your health care provider which exercises are safe for you. Do exercises exactly as told by your health care provider and adjust them as directed. Do not begin these exercises until told by your health care provider. Exercises How to do Kegel exercises: 1. Squeeze your pelvic floor muscles tight. You should feel a tight lift in your rectal area. If you are a female, you should also feel a tightness in your vaginal area. Keep your stomach, buttocks, and legs relaxed. 2. Hold the muscles tight for up to 10 seconds. 3. Breathe normally. 4. Relax your muscles for up to 10 seconds. 5. Repeat as told by your health care provider. Repeat this exercise daily as told by your health care provider. Continue to do this exercise for at least 4?6 weeks, or for as long as told by your health care provider. You may be referred to a physical therapist who can help you learn more about how to do Kegel exercises. Depending on your condition, your health care provider may recommend: ? Varying how long you squeeze your muscles. ? Doing several sets of exercises every day. ? Doing exercises for several weeks. ? Making Kegel exercises a part of your regular exercise routine. This information is not intended to replace advice given to you by your health care provider. Make sure you discuss any questions you have with your health care provider. Document Revised: 08/29/2021 Document Reviewed: 08/29/2021 [employer] Patient Education ? 2022 [employer] [facility] Physician Referralon 023 Physician Referral [id number] #[email or web address] [facility] Urinalysis - DIPSTICKon 10-03 Appearance (U) cloudy [employer] Other Bilirubin Ql (U) [employer] [facility] [employer] Other Color (U) yellow [facility] Other Glucose Ql (U) Negative [employer] Other Hemoglobin Ql (U) [facility] Other Ketones Ql (U) Negative [employer] Other Leukocyte esterase Test strip Ql (U) moderate [facility] Other Nitrite Ql (U) Positive [employer] Other pH (U) 5 [pH] [facility] Other Protein Ql (U) Negative [facility] [facility] Other Specific gravity (U) [Rel density] 1.010 [facility] Other Urobilinogen (U) [Mass/Vol] off chart [facility] Other Urinalysis - DIPSTICK [facility] Other Urine Cultureon 10-27-2022 Bacteria identified Cx Nom (U) ORGANISM: Escherichia coli (O:ESCCOL) [place] Count >100,000 Aerobic AUBREY Charge ([id number]) ----- SUSCEPTIBILITY ---- ORGANISM: O:ESCCOL ANTIBIOTIC INTERPRETATION AUBREY Amikacin S <16 Amoxacillin/K Clavulanate S <8 Ampicillin S <8 Ampicillin/Sulbactam S <4 Aztreonam S <4 Cefazolin S <2 Cefepime S <2 Ceftazidime S <1 Ceftazidime/Avibacta m S <4 Ceftolozane/Tazobact am S <2 Ceftriaxone S <1 Cefuroxime S <4 Ciprofloxacin S <0.25 Ertapenem S <0.5 Gentamicin S <2 Levofloxacin S <0.5 Meropenem S <1 Meropenem/Vaborbacta m S <2 Nitrofurantoin S <32 Piperacillin/Tazobac hills S <8 Tetracycline S <4 Tigecycline S <2 Tobramycin S <2 Trimethoprim/Sulfame thoxazole S <0.5 S = SUSCEPTIBLE I = INTERMEDIATE R = RESISTANT BLANK = DATA NOT AVAILABLE, OR DRUG NOT ADVISABLE OR TESTED R* = RESISTANCE DUE TO EXTENDED SPECTRUM BETA-LACTAMASES ESBL = EXTENDED SPECTRUM BETA-LACTAMASE TFG = THYMIDINE-DEPENDENT STRAIN ELLA = BETA-LACTAMASE POSITIVE IB = INDUCIBLE BETA-LACTAMASE. APPEARS IN PLACE OF 'S' WITH SPECIES KNOWN TO POSSESS INDUCIBLE BETA-LACTAMASES. POTENTIALLY THEY MAY BECOME RESISTANT TO ALL B-LACTAM DRUGS. PERFORMED BY: [place] [address] PATHOLOGIST DOUGHNUT GLAZIER JOSE GUADALUPE FERGUSON M.D. Normal [facility] Comment on above: Performed By: #### C UU #### [place] [id number] RUST CNPIngrid 09-11-2022 CNPN Telephone (HEMTSA) NGUYEN BURNS ([id number]) 1945 F Date Time Provider Department 09/11/22 MATT ADAMS During your visit today, we recorded the following information about you: Matt Adams RN 09/11/2022 9:54 AM Signed Pt called to request yearly Mammogram order I have pended order as previously completed Pt requests to fax to Nori Lema [phone] [facility]/: please review and sign if agreeable RICARDO Lopez RN 09/11/2022 11:45 AM Signed [facility] is aware. Matt Adams RN Allergies As of Date: 09/11/2022 Noted Allergy Reaction BACLOFEN 03/19/2017 16 - Unknown CODEINE 03/19/2017 16 - Unknown HYDROCODONE-ACETAMIN OPHEN 03/19/2017 16 - Unknown LEVOFLOXACIN 03/19/2017 16 - Unknown MORPHINE 12/03/2015 4 - Hives OXYCODONE 12/03/2015 4 - Hives PENICILLINS 12/03/2015 4 - Hives Date Reviewed: 03/16/2019 Reviewed by: Divine Self - Fully Assessed Reason for Visit: Orders [681] Primary Visit Diagnosis:Encounter for screening mammogram for malignant neoplasm of breast [Z12.31] Order(s):AUGUSTINA SCREENING W YAW [[id number]] Order #: [id number] FUTURE Prescriptions as of 09/11/2022 - lisinopril (ZESTRIL, PRINIVIL) 20 mg tablet - XIIDRA 5 % dpet - cyclobenzaprine (FLEXERIL) 10 mg tablet Take 10 mg by mouth twice daily as needed. - temazepam (RESTORIL) 30 mg cap - losartan-hydrochloro thiazide (HYZAAR) 100-25 mg per tablet - meperidine (DEMEROL) 50 mg tablet Take 25 mg by mouth as needed. - flecainide (TAMBOCOR) 100 mg tablet Take 100 mg by mouth. - apixaban (ELIQUIS) 5 mg tab(s) Take 5 mg by mouth twice daily. - atenolol (TENORMIN) 50 mg tablet 25 mg twice daily. - LORazepam (ATIVAN) 1 mg tablet Take 1 mg by mouth. - SUMAtriptan (IMITREX) 25 mg tablet Take 25 mg by mouth as needed. - Omeprazole (PRILOSEC) 40 mg capsule Take 20 mg by mouth twice daily. - potassium chloride (KLOR-CON 10) 10 mEq tablet Take 10 mEq by mouth once daily. 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] 12/03/2015 Breast cancer of upper-outer quadrant of left f*12/06/2015 History of breast cancer [Z85.3] 09/23/2017 Chronic atrial fibrillation (HCC) [I48.20] 03/24/2018 Encounter Status:Closed by MATT ADAMS on 09/11/22 Normal [facility] Urinalysis - DIPSTICKon 02-2 Appearance (U) cloudy [employer] [facility] Other Bilirubin Ql (U) Negative [facility] Other Color (U) pale yellow [facility] Other Glucose Ql (U) Negative [employer] [facility] Other Hemoglobin Ql (U) non hem-trace [place] [facility] Other Ketones Ql (U) trace [employer] [facility] Other Leukocyte esterase Test strip Ql (U) moderate [facility] Other Nitrite Ql (U) Negative [employer] [facility] Other pH (U) 5 [pH] [facility] Other Protein Ql (U) trace [employer] Other Specific gravity (U) [Rel density] 1.005 [facility] Other Urobilinogen (U) [Mass/Vol] normal [facility] Other Urinalysis - DIPSTICK [facility] Other CULTURE URINEon 06-11-2022 CULTURE URINE Isolate 1 Escherichia coli >100,000 cfu/mL of ORGANISM 1 Escherichia coli ANTIBIOTIC M.I.C RX STATUS Ampicillin 4 S F Ampicillin/Sulbactam <=2 S F Piperacillin/Tazobac hills <=4 S F Cefazolin <=4 S F Ceftazidime <=1 S F Ceftriaxone <=1 S F Ertapenem <=0.5 S F Imipenem <=0.25 S F Amikacin <=2 S F Gentamicin <=1 S F Tobramycin <=1 S F Ciprofloxacin <=0.25 S F Levofloxacin <=0.12 S F Nitrofurantoin <=16 S F Trimethoprim/Sulfame thoxazole <=20 S F Normal [facility] Comment on above: Performed By: #### U RCX #### [facility] [address] [place] [address] Dr. Florencio Narayanan CARDIAC AMBER ADMITon 023 CK [Catalytic activity/Vol] 44 U/L Normal 26-192 [facility] Comment on above: Performed By: #### C LILIAN LOZANO CMADM #### [facility] [address] [place] [address] Dr. Florencio Narayanan CK.MB [Mass/Vol] ng/mL Normal <=3.60 [facility] Comment on above: Performed By: #### C LILIAN LOZANO CMADM #### [facility] [address] [place] [address] Dr. Florencio Narayanan HSTROP 14.6 pg/mL Normal 4.0-51.3 [facility] Comment on above: Result Comment: CUT- OFF POINTS HAVE BEEN ESTABLISHED BASED ON THE FOURTH UNIVERSAL DEFINITIONS OF MYOCARDIAL INFARCTION. THE UPPER REFERENCE LIMIT (URL) OF TROPONIN, DEFINED THE 99TH PERCENTILE OF cTnI DISTRIBUTION IN A REFERENCE POPULATION, HAS BEEN CONFIRMED THE DECISION THRESHOLD FOR [place] DIAGNOSIS. Performed By: #### C LILIAN LOZANO CMADM #### [facility] [address] [place] [address] Dr. Florencio Narayanan UMER 109 ng/mL Critically high 9-82 [facility] Comment on above: Performed By: #### C LILIAN LOZANO CMADM #### [facility] [address] [place] [address] Dr. Florencio Narayanan CBC AUTO DIFFon 06-09-2022 BASO # 0.1 103/ul Normal 0.0-0.1 [facility] Comment on above: Performed By: #### C BC #### [facility] [address] [place] [address] Dr. Florencio Narayanan Basophils/100 WBC (Bld) 0.4 % Normal 0.2-2.0 [facility] Comment on above: Performed By: #### C BC #### [facility] [address] [place] [address] Dr. Florencio Narayanan EO # 0.0 103/ul Normal 0.0-0.7 [facility] Comment on above: Performed By: #### C BC #### [facility] [address] [place] [address] Dr. Florencio Narayanan Eosinophils/100 WBC (Bld) 0.2 % Critically low 0.9-7.0 [facility] Comment on above: Performed By: #### C BC #### [facility] [address] [place] [address] Dr. Florencio Narayanan Erythrocyte distribution width (RBC) [Ratio] 12.3 % Normal 11.0-15.0 [facility] Comment on above: Performed By: #### C BC #### [facility] [address] [place] [address] Dr. Florencio Narayanan Hematocrit (Bld) [Volume fraction] 38.4 % Normal 36.0-48.0 [facility] Comment on above: Performed By: #### C BC #### [facility] [address] [place] [address] Dr. Florencio Narayanan Hemoglobin (Bld) [Mass/Vol] 12.7 g/dL Normal 12.0-16.0 [facility] Comment on above: Performed By: #### C BC #### [facility] [address] [place] [address] Dr. Florencio Narayanan IG # 0.06 10e3/ul Critically high 0.00-0.03 [facility] Comment on above: Performed By: #### C BC #### [facility] [address] [place] [address] Dr. Florencio Narayanan IG % 0.5 % Normal 0.0-0.5 [facility] Comment on above: Performed By: #### C BC #### [facility] [address] [place] [address] Dr. Florencio Narayanan LYMPH # 1.0 103/ul Critically low 1.2-3.8 [facility] Comment on above: Performed By: #### C BC #### [facility] [address] [place] [address] Dr. Florencio Narayanan Lymphocytes/100 WBC (Bld) 8.4 % Critically low 20.5-60.0 [facility] Comment on above: Performed By: #### C BC #### [facility] [address] [place] [address] Dr. Florencio Narayanan MANUAL DIFF REQ NO Normal [facility] Comment on above: Performed By: #### C BC #### [facility] [address] [place] [address] Dr. Florencio Narayanan MCH (RBC) [Entitic mass] 32.4 pg Normal 26.7-34.0 [facility] Comment on above: Performed By: #### C BC #### [facility] [address] [place] [address] Dr. Florencio Narayanan MCHC (RBC) [Mass/Vol] 33.1 g/dL Normal 29.9-35.2 [facility] Comment on above: Performed By: #### C BC #### [facility] [address] [address] [address] Florencio Narayanan MCV (RBC) [Entitic vol] 98.0 fL Normal 81.0-99.0 [facility] Comment on above: Performed By: #### C BC #### [facility] [address] [address] [address] Florencio Narayanan MONO # 1.6 103/ul Critically high 0.3-0.8 [facility] Comment on above: Performed By: #### C BC #### [facility] [address] [place] [address] Dr. Florencio Narayanan Monocytes/100 WBC (Bld) 13.1 % Critically high 1.7-12.0 [facility] Comment on above: Performed By: #### C BC #### [facility] [address] [place] [address] Dr. Florencio Narayanan NEUT # 9.5 103/ul Critically high 1.4-6.5 [facility] Comment on above: Performed By: #### C BC #### [facility] [address] [place] [address] Dr. Florencio Narayanan Neutrophils/100 WBC (Bld) 77.4 % Critically high 43.0-75.0 [facility] Comment on above: Performed By: #### C BC #### [facility] [address] [place] [address] Dr. Florencio Narayanan Platelet mean volume (Bld) [Entitic vol] 9.4 fL Critically low 9.5-13.5 [facility] Comment on above: Performed By: #### C BC #### [facility] [address] [place] [address] Dr. Florencio Narayanan PLT 140 103/ul Critically low 150-450 [facility] Comment on above: Performed By: #### C BC #### [facility] [address] [place] [address] Dr. Florencio Narayanan RBC 3.92 106/ul Critically low 4.20-5.40 [facility] Comment on above: Performed By: #### C BC #### [facility] [address] [place], [place] [address] Dr. Florencio Narayanan WBC 12.2 103/ul Critically high 4.0-11.0 [facility] Comment on above: Performed By: #### C BC #### [facility] [address] [address] STROKE HEAD WOon 06-09-[address] STROKE HEAD WO NONCONTRAST HEAD CT COMPARISON: None. CLINICAL HISTORY: Weakness. TECHNIQUE: Routine noncontrast images of the brain obtained. CT examination of the head without IV contrast. Dose reduction techniques were achieved by using: automated exposure control and/or adjustment of mA and /or kV according to patient size and/or use of iterative reconstruction technique. FINDINGS: Paranasal sinuses and mastoid air cells are clear. Intraorbital contents are unremarkable. No acute bony abnormality. Intracranially, there is no evidence of hemorrhage, mass effect, or midline shift. Ventricles and cisternal spaces are age appropriate. IMPRESSION: No acute intracranial abnormality. Electronically authenticated by: LUANA VILLAFANA Date: 2022-06-09 12:24 Normal [facility]on SARS-CoV-2 (COVID-19) RNA CHRISTOPHER+probe Ql (Unsp spec) Not detected Normal NOT DETECTED [facility] Comment on above: Result Comment: When diagnostic testing is negative, the possibility of a false negative should be considered in the context of a patient's recent exposures and the presence of clinical signs and symptoms consistent with SARS-CoV-2. This test is not yet approved or cleared by the [place] FDA. When there are no FDA-approved or cleared tests available, and other criteria are met, FDA can make tests available under an emergency access mechanism called an Emergency Use Authorization (EUA). The EUA for this test is supported by the [place] of Health and Human Service's declaration that circumstances exist to justify the emergency use of in vitro diagnostics for the detection and/or diagnosis of the virus that causes COVID-19. This EUA will remain in effect for the duration of the COVID-19 declaration justifying emergency of IVDs, unless it is terminated or revoked by the FDA (after which the test may no longer be used). Performed By: #### C VDTB #### [facility] [address] [place] [address] Dr. Florencio HUERTA URINE PROFILEon 3 Bilirubin Ql (U) Negative Normal NEGATIVE [facility] Comment on above: Performed By: #### Malini PIZANO UMICRO #### [facility] [address] [place] [address] Dr. Florencio Narayanan Clarity (U) CLEAR Normal CLEAR [facility] Comment on above: Performed By: #### Malini PIZANO UMICRO #### [facility] [address] [place] [address] Dr. Florencio Narayanan Color (U) LT. YELLOW Normal YELLOW [facility] Comment on above: Performed By: #### Malini PIZANO UMICRO #### [facility] [address] [place] [address] Dr. Florencio CONLEY A micrscopic examination will be performed if indicated. Normal [facility] Comment on above: Performed By: #### Malini PIZANO UMICRO #### [facility] [address] [place] [address] Dr. Florencio Narayanan Glucose Ql (U) Negative Normal NEGATIVE [facility] Comment on above: Performed By: #### Malini PIZANO UMICRO #### [facility] [address] [place] [address] Dr. Florencio Narayanan Hemoglobin Ql (U) LARGE Abnormal NEGATIVE [facility] Comment on above: Performed By: #### Malini PIZANO UMICRO #### [facility] [address] [place] [address] Dr. Florencio Narayanan Ketones Ql (U) TRACE Abnormal NEGATIVE [facility] Comment on above: Performed By: #### Malini PIZANO UMICRO #### [facility] [address] [place] [address] Dr. Florencio Narayanan LEUKOCYTES LARGE Abnormal NEGATIVE [facility] Comment on above: Performed By: #### Malini PIZANO, UMICRO #### [facility] [address] [place] [address] Dr. Florencio Narayanan Nitrite Ql (U) Positive Abnormal NEGATIVE [facility] Comment on above: Performed By: #### Malini PIZANO, UMICRO #### [facility] [address] [place] [address] Dr. Florencio Narayanan pH (U) 5.5 [pH] Normal 5-9 [facility] Comment on above: Performed By: #### Malini PIZANO, UMICRO #### [facility] [address] [place] [address] Dr. Florencio Narayanan SPEC GRAVITY 1.010 Normal 1.005-<=1.025 [facility] Comment on above: Performed By: #### Malini PIZANO, UMICRO #### [facility] [address] [place] [address] Dr. Florencio Narayanan UA PROTEIN TRACE Normal NEGATIVE/ TRACE [facility] Comment on above: Performed By: #### Malini PIZANO ICRO #### [facility] [address] [place] [address] Dr. Florencio Narayanan UR MICRO IND INDICATED Normal [facility] Comment on above: Performed By: #### Malini IPZANO ICRO #### [facility] [address] [place] [address] Dr. Florencio Narayanan Urobilinogen Qn (U) 0.2 {Zenia'U}/dL Normal 0.2 - 1.0 [facility] Comment on above: Performed By: #### Malini PIZANO, UMICRO #### [facility] [address] [place] [address] Dr. Florencio Narayanan LIPASEon 06-09-2022 Lipase [Catalytic activity/Vol] 68.0 U/L Critically low 73.0-393.0 [facility] Comment on above: Performed By: #### C MP, LIPA, CMADM #### [facility] [address] [place] [address] Dr. Florencio Narayanan PROF 14(COMP METB)on 023 Albumin [Mass/Vol] 2.5 g/dL Critically low 3.4-5.0 [facility] Comment on above: Performed By: #### C LILIAN LOZANO, CMADM #### [facility] [address] [address] [address] Florencio Narayanan Albumin/Globulin [Mass ratio] 0.6 {ratio} Normal [facility] Comment on above: Performed By: #### C BLAKE LIPA, CMADM #### [facility] [address] [address] [address] Florencio Narayanan ALP [Catalytic activity/Vol] 150 U/L Critically high 46-116 [facility] Comment on above: Performed By: #### C MAURICIO LOZANOA, CMADM #### [facility] [address] [place] [address] Dr. Florencio Narayanan ALT [Catalytic activity/Vol] 27 U/L Normal 14-59 [facility] Comment on above: Performed By: #### C BLAKE LIPA, CMADM #### [facility] [address] [place] [address] Dr. Florencio Narayanan Anion gap [Moles/Vol] 12.8 mmol/L Normal [facility] Comment on above: Performed By: #### C BLAKE LIPA, CMADM #### [facility] [address] [place] [address] Dr. Florencio Narayanan AST [Catalytic activity/Vol] 31 U/L Normal 15-37 [facility] Comment on above: Performed By: #### C BLAKE LIPA, CMADM #### [facility] [address] [place] [address] Dr. Florencio Narayanan Bilirubin [Mass/Vol] 1.1 mg/dL Critically high 0.2-1.0 [facility] Comment on above: Performed By: #### C BLAKE LIPA, CMADM #### [facility] [address] [place] [address] Dr. Florencio Narayanan Calcium [Mass/Vol] 9.1 mg/dL Normal 8.5-10.1 [facility] Comment on above: Performed By: #### C BLAKE LIPA, CMADM #### [facility] [address] [address] [address] Florencio Narayanan Chloride [Moles/Vol] 95 mmol/L Critically low 98-107 [facility] Comment on above: Performed By: #### C MP, LIPA, CMADM #### [facility] [address] [address] [address] Florencio Narayanan CO2 [Moles/Vol] 29.4 mmol/L Normal 21.0-32.0 [facility] Comment on above: Performed By: #### C MP, LIPA, CMADM #### [facility] [address] [address] [address] Florencio Narayanan Creatinine [Mass/Vol] 1.34 mg/dL Critically high 0.55-1.02 [facility] Comment on above: Performed By: #### C MP, LIPA, CMADM #### [facility] [address] [place] [address] Dr. Florencio Narayanan EGFR-AF [place] 47 mL/min/1.73m2 Critically low >=60 [facility] Comment on above: Performed By: #### C MP, LIPA, CMADM #### [facility] [address] [place] [address] Dr. Florencio Narayanan EGFR-NON AF [place] 39 mL/min/1.73m2 Critically low >=60 [facility] Comment on above: Performed By: #### C MP, LIPA, CMADM #### [facility] [address] [address] [address] Florencio Narayanan Globulin (S) [Mass/Vol] 4.3 g/dL Normal [facility] Comment on above: Performed By: #### C MP, LIPA, CMADM #### [facility] [address] [place] [address] Dr. Florencio Narayanan Glucose [Mass/Vol] 118 mg/dL Critically high 74-106 [facility] Comment on above: Performed By: #### C MP, LIPA, CMADM #### [facility] [address] [place] [address] Dr. Florencio Narayanan Potassium [Moles/Vol] 3.2 mmol/L Critically low 3.5-5.1 [facility] Comment on above: Performed By: #### C LILIAN LOZANO CMADM #### [facility] [address] [address] [address] Florencio Narayanan Protein [Mass/Vol] 6.8 g/dL Normal 6.4-8.2 [facility] Comment on above: Performed By: #### C LILIAN LOZANO, CMADM #### [facility] [address] [place] [address] Dr. Florencio Narayanan Sodium [Moles/Vol] 134 mmol/L Critically low 136-145 [facility] Comment on above: Performed By: #### C LILIAN LOZANO CMADM #### [facility] [address] [place] [address] Dr. Florencio Narayanan Urea nitrogen [Mass/Vol] 29.0 mg/dL Critically high 7.0-18.0 [facility] Comment on above: Performed By: #### C LILIAN LOZANO CMADM #### [facility] [address] [place] [address] Dr. Florencio Narayanan Urea nitrogen/Creatinin e [Mass ratio] 21.6 mg/mg Normal [facility] Comment on above: Performed By: #### C LIILAN LOZANO, CMADM #### [facility] [address] [place] [address] Dr. Florencio Narayanan URINE MICROSCOPIC ONLYon BACTERIA SMALL Abnormal NONE SEEN [facility] Comment on above: Performed By: #### MARIVEL LEICRO #### [facility] [address] [place] [address] Dr. Florencio Narayanan Bacteria identified Cx Nom (U) INDICATED Normal [facility] Comment on above: Performed By: #### Malini PIZANO UMICRO #### [facility] [address] [place] [address] Dr. Florencio Narayanan CAST NONE SEEN Normal NONE SEEN [facility] Comment on above: Performed By: #### LIYAH LERO #### [facility] [address] [place] [address] Dr. Florencio Narayanan Crystals LM Nom (Urine sed) NONE SEEN Normal NONE SEEN [facility] Comment on above: Performed By: #### LIYAH LERO #### [facility] [address] [place] [address] Dr. Florencio Narayanan Epithelial cells LM Ql (Urine sed) FEW Abnormal NONE SEEN /RARE [facility] Comment on above: Performed By: #### LIYAH LERO #### [facility] [address] [place] [address] Dr. Florencio Narayanan MUCOUS NONE SEEN Normal NONE SEEN [facility] Comment on above: Performed By: #### LIYAH LERO #### [facility] [address] [place] [address] Dr. Florencio Narayanan RBC 2-5 Abnormal 0-2 [facility] Comment on above: Performed By: #### LIYAH LERO #### [facility] [address] [place] [address] Dr. Florencio Narayanan WBC 10-20 Abnormal NONE SEEN [facility] Comment on above: Performed By: #### Malini PIZANO UMROSETTERO #### [facility] [address] [place] [address] Dr. Florencio Narayanan XR CHEST 2 Von 06-09-2022 XR CHEST 2 V EXAM: XR CHEST 2 V HISTORY: Weakness and dizziness for 5 days. COMPARISON: None. TECHNIQUE: PA and lateral views of the chest performed. FINDINGS: The trachea is midline. There is mild enlargement of the cardiac silhouette. There are small calcified mediastinal lymph nodes related to old granulomatous disease. There is no consolidation or infiltrate. There is no pleural effusion or pulmonary vascular congestion. There is no pneumothorax. The bony structures are osteopenic. There is no acute osseous abnormality. There are surgical clips within the left axilla. IMPRESSION: There is no acute cardiopulmonary process. Electronically authenticated by: JOAQUÍN ATKINS Date: 2022-06-09 12:24 Normal [facility] CULTURE URINEon 04-16-2022 CULTURE URINE Isolate 1 Escherichia coli >100,000 cfu/mL of ORGANISM 1 Escherichia coli ANTIBIOTIC M.I.C RX STATUS Ampicillin >=32 R F Ampicillin/Sulbactam 16 I F Piperacillin/Tazobac hills <=4 S F Cefazolin <=4 S F Ceftazidime <=1 S F Ceftriaxone <=1 S F Ertapenem <=0.5 S F Imipenem <=0.25 S F Amikacin <=2 S F Gentamicin >=16 R F Tobramycin 4 S F Ciprofloxacin <=0.25 S F Levofloxacin <=0.12 S F Nitrofurantoin <=16 S F Trimethoprim/Sulfame thoxazole >=320 R F Normal [facility] Comment on above: Performed By: #### C #### [facility] [address] [place] [address] Dr. Florencio Narayanan Coding Summaryon 01-13-2022 Coding Summary HTMLBase 64 ZjeeaoxhRKw8wPo+PGhl YWQ+GL6AYAQzE02eeCIq mK3QZ7tOMP4TXTZWJCGH WV3NMQ0cxJJ0QPpgF6Fw biAv AsbjpFVfIM42IVb8MJG2 uYskEJchxL7tzQKtG2s5 UrGxXM14nY96LHytIJJa ZaC5ZgCtryywkULj J9aaSvDqlUMlDpn+PHRh YmxlIHdpZHRoPScxMDAl BeBhwIanJD4pDs9yVBUh LWNvbGxhcHNlOiBj z3llXHItTEokGN6tvFym C3QwoLO5RFWiv0a4Rr83 dHI+UYBbUUW4zIilPIau h135TyYoh2bfEGE3 rHYxKTqlZNN4C82zs3K3 DZEeTBRwYJI5oRU8mC0s hDoypnveV9IsiHOwCbF2 INE7wKBswK6hkYth qmgvrS5gPbc+F58QAO5A HOVOIS2YEhp4U6LbYgxj dHI+TZ86NAJrIX39vRGz oTZre8mxvMn9KqTp QSWbEQS7fMlmNIjat5Vc QCElB92gbXYrw2X3PYGo sAgplLYwYeNqxRC6kD7s CAoeaugui9nunxwd Soltj7brop83nE97C51u NHwjITMzBVI8NQTpLYRz fWeaub1jwX5gDr5+IDxj d9lqy9cfcAj2AxIr BWYnrmDzpVtnRKM1q3Du Dy79U5JbfCipx6GnSho4 uh62zUOdq6Y4xBI1REzk ONWweD7tQCqnTlD1 ILPhOlFfiB10cELqTEfx Vi3mlGelbSufIS1xSBXv inuyEDLzhC5lMWPlwZYu fXqdRQ2sNLTicxva a329HzXbYBQ4MGQscPMn P1KrlZ2xBmPzNJDeOORd S5MexBNdAVaeP220KXdt TcS5DIVnefJuJ3Cj NGExxBipMcX7k7U9Ft5N c1UvihbrQWW4QOekHBH1 MdMeNmToRwA7O2KnTzt3 LTVjiKlnYU9mC8Ci JTHieljkrfblcIA6EZXk VWStcM72zEKvJIxpHl5x f3V5p117KWEhMQLjgK81 Dj3gzRmfYKNoiRLS wA2qhwrqx3nyzfzyQiGz IOJlGAv7CWf9XKMmnDdu EwYnBOJ6UxJ1ZND2xVIe hW5xlOemthyddU3r Oyc+W12obF3iOES7CYQ3 cauhMJPakgZgQG39IU71 D8McWsknmOWpjAM+PGRp nqThbNlaVS2lNjYm v8wfl3NyBTjtQ6KnPOUe FBebRvj6VZZmPHD0xET4 bN9fWWAxTCqsh7O2tVZ2 A9FweiWvaz6mi6ya QCNuCElzM69twVNqy6S8 JNQumWE7FZVptZwzXrGw qR92Izr+YHZxvUdph9Ng Zfndh9zsj5pgdKn0 IjMwJSIgdmFsaWduPSJ0 d1CzSn66Y24cMRrxAJPo IBFmOLCuZWWzjCfxes8s fT9mPr4+PGNvbCB3 jHT1jB3lEELuTnZ3CAtm C565YeDdyIUsNanbh6nr a2pfrOc4LeOvLZUvnpRz aDhrZHV3v3PvTq14 V32fHScaTQIlIZLnFIMk TFDqmCqurj3gnX8gYh3+ OX3xo5stgi54pJ39mAZ+ JUWsEDD2qCxmJAbk IUOqsK7gILluGdX9KCMl PwAliU33iCQtCYnsOi3s cXtmpPuzCB6dAULtwjpe m167TmLew6jlHMJy hNFeAChhLIO1F45fl4H9 ANJeAIBaMSP5oFS7pR5h bGlnbjogbGVmdDsgdmVy cBswTJdgQZzuM815 IHRvcDsnPlBhdGllbnQg XlDhQNg6P9LqVul9QAZu iMblFA6baDWwANhhZk0x cOwzpIukGO7iAILo hmtdp291JbLky3vpXBQp aDLaGEcjAZQ0H13ex9J6 LECbRUFzNFY5xUF3pY0d bGlnbjogbGVmdDsg gwXqsSqdZGwcBHjmE957 IHRvcDsnPkJpcnRoIERh bSU6PZ20NU69iWSdp5U9 xQF9E7FmSKTtoxyv eynsgLL3LOVzZUSkiQ65 Hl0xpAqaAc7iPVSlUZF6 IUCuzTFcI7MllY8yEjVw SESiHQJxU9NbbOUa DHfpM684QAtcSlY5TLCl meIaO2DkCOPxlKsrDyB4 n5J6Ct0TO8I1NG51HY11 jJBvk6H8iLY9V5Lb YTKzemnfbcspkXF6QDDj GCOwsG54Ia1huRthEd1d BWGkNHE3TEZqtOHtU6Ig eR1eMdZjKMDeCJEt K7CphRDiENctU420UTdy GuG9WJQoctChQ7JtFHTl ePikVfP4o5G4Rt2AJFe8 MO57YP27gWIwg3Z3 gNA7F2IsNDGxzvumqkfr dYN4DWBzHEOyfV02Qc0f tObmEh2nPEFzDWH4JAXo mPVkC8FltD4kVmYj XACvSQSoX6CndXUqCHgu S070PSatEkA4DEEsblQh N9UyTWUrcSwqHtV5u6M5 Ao1GHLWmMP50JBQ2 vXV2VN30RG65Z8TzWote dGFibGU+PHRhYmxlIHdp ZHRoPScxMDAlJyBzdHls VH5aLf2vLUAlLSYv iArbjEZvCzKcd1mrWOLf LXhzJF9jcHqzB7FbyBE4 BHDqj3c7En62W58rU2Ix dXA+HEYkuVL0zNY9 uH5nKdKpUgS0NTupU439 LlJobYTqUwgxn6lge5ao pJf0UmZ9USEwqlSrpZdz EHX3f4JqGw07I37v IHdpZHRoPSIxNSUiIHZh bAncsa2txA6bUa8+PGNv yMG8xEE1jZ6yZdTyLnC0 YUmcP063ZnNkdZGb Qciqp5fer9bbjAw6OzEe TZChlhTxvWqcKWK5a3Py Cc41V1XesFuic2VtAab2 kz85aXUcx8Q6iYR6 K6OkFHTgumzqeKBgbDcb ZN4vVRChugwrHSFqdD0q PXCtM9a7HeWpBpP9BNig T5AyzyS8CLBwaJLg AEewYYW3Y72rm3J1JCCc NGJxBEI1sAS8gT7njApw bjogbGVmdDsgdmVydGlj RLkwUYvhW658PROe fZqgXVIjjD4pKBXkuABk gTmyWH5hXSIrydvlBvCH QUlMRVksIFRPTllBIEdB VCI8I3HxXqg6DDKm jHjnNR7klBFaUCduFf1i eUkvhJmdHI3sZZBgzesk ONUgbH9sBAFehSBifXzf XZ7fRGJidxtwd476 FmCwBYK2PRUiqVVjK3Bv zC7tQjAyEAMuRJFyQ9Ou cNXbMShiW281WRlyOcP9 NTEfkoWxO5ZjRPWw iYfeGkY4y4A3Ew8fMu9q Jn1uQOW9BD66FB72eOMw o0G2vLJ4E3BzTHJvuvft lbirlXF4IXPxNGCy hB61tRFvLHlaHx4gb7C2 p301MUUoEWKyzX75Iu8z kCbfLZOmdLCYuW4ullnp e3nqolqoQfScCHUn GAm8INt9LONnmPtzFrXn DTP6NoT2CKX0tKYmlV6b dFjvvdccqH4aYes+NzQg ZLUmgdS4Z1WeAtd2 RDGdnWqkZJ1ubNJoPSpd Ge5yuMljqIpqMS2eGIPw rijeKNMvwY4jHPEtqCCi dWvhLR4iSFEehlnu l758TvCeOJT3HRZxnNMv D4RhoC4zPmHaXIObTTXw J8TzfHFyBXegF473GAmy UuH5XPHykbKlP8Zy XWNsuBydGaL4j2Z8Ka9Z FN7SEWD7Q9PkHsi0HNAb qJsqUV8yxXMaYOshJy2p mOjjlAikCZ2oJNQy lxelLQWlkJ5qZZQppPSi tDqwUQ3vZMHaienps056 QyIoYDO6ALCcpYMeV8Fv zY6sZnDkRKCsIMGd K8MfrVTgEUnkL980VFof PzP4TLTvyjTwU4TuXKHv nJzmMbU3v0S6Yv6YKQbf dGQ+DH25lu43E9Gv ZgkrNed1XWYkTVW3zYA8 dD4qPBDiICdyk5N2rVR8 V2ZlpaVyhs3cf7gcPZQr CRqoR58diIHtv6G8 DWQayTI6ZWYhoPacIfEa mK42Vhs+JCBybGajz6Me Kpmju7zbh6ebjGs1DbZi JSIgdmFsaWduPSJ0 h6EwGw14V42nXCkmJLNi ESSeESLcMLOepFkcpz0l tO2tBl6+FODdqZP9kWG4 hC9sLaUvFiS4QQot Y020YhJdbIIxOroxe4fw e7neuDk8AgTcHCUcfeEh xTddSER3g6GkNt13J0Cf jKstr8DtKmk0pp03 mOOdw1O6nFN6P8SxSLVn uzgbrGSavCjwEE8kBQUx pdyxKUJhwG4vAUGvM2q6 CvLpYbX6GZqlF3Lc arU8ZMHhkDNbAVFgeUNF oP9eniici5fcjkupExPs EGXmTAz3FKu2DUNjpIff VpFaYLY5XaK9VFE7 yJSbfK8reSiadgpklM2k Oyc+EDp2h4newHUxXV0s xZP7UA41VD15hCVmg4O8 gYR5I1IqWKQgdkue snuckAD9KHAbPLOmkF88 Ec8oiPmgAj7lYOUoYBB1 FBMgwLTcT9ZggC4qXiSs ZBWbWSIuL0FiaXEl FFpnH538OQzhRtC0CRMc ayPdH1FlCJDcrThxJnP7 u9J4Wa7BPE61MD61YW10 zXZgn3T6uZU6E9As POLxpmqygayahTZ4FXUq OWVtuE62Dk1owTztIz9f HMAfVUZ4SQSigQXeZ3Vu zH2gDwXeNQOhEAFq H7XaaZStRMqmA539JSky IwJ1CQJpveZaO0PqQKBb rOltLwX0h5X6Ae9PHb47 GZ20RI17gMUdo9Q4 hNV6B0FcJSRwettjshaa aPQ4CNBlWSYofM21Mc0g iVfiIl6vMBGbBGD2ZZEd zRIrI9QvkV2cVeBx FUJyQOEtG1QsaQPgDElh P498JLuhVxR7VFRqewTc S1KuAXXdoAheKeX6l9H2 Yx3JNTdmdih4V1Rv PjwvdHI+DV14RUIrRJ82 fOGgtRTii5ytyKv7SbEb QXRvDJK7nDvwLRsww6Sx VXMmP86lxKHyu1R8 IGN (more content not included)... [facility] Consent Formson 12-20-2021 Consent Forms [id number] #[email or web address] [facility] Coding Summaryon 12-19-2021 Coding Summary HTMLBase 64 RovmiltfRCm2uVw+PGhl YWQ+YK7RTGSlP61zbMFh aZ5NQ5lHTP8FQFNILYQN SZ6WSA0rwQU7JXpjG1Kk biAv DhcmxBKqMS95LQs8EYA5 iFthPPihrD6esRPbU6x6 KlMuOV75mL38JKixLKPz UaD6TsRhfqbwrCAx F8dzLvVjhSFbVxp+PHRh YmxlIHdpZHRoPScxMDAl OqFafPxnYK0tEm8eLQWb LWNvbGxhcHNlOiBj k2zlIKHuNJuhGR2uyLqj J5YqqMS5XYWal6j7Ys10 dHI+DPRlERD7yLveTXoh k455SeYra6rjITH9 rSHtXDujUJS8I63ci7K0 OXThTUKcRJG2gBY0oY6a uWjzspiqA1YriQUlCrL8 OJJ1fWDwtY3jtCis iyatbR0nDpz+F19BBQ6J XNJUTO6IRnv3Q6WeJyox dHI+VW78FESaHG98iIXp bWLec3aghLs5XwPh YAVqZFE1xWshGArxf2Xp KEJpS70clYWiw6Z2HFJv tOhkdUUsZtHhhJC1pB4v PSnnqlron6qakmno Ipcbr3gllu93hY45X35i WGcbCFUiADS1CBElNSEq fUjqus8irA5yAl3+IDxj e5xse3lhpRd1IzFg UAWsuwBjjAwzZRJ1i3Ra Dj10P6AxwDyge2RiWul8 wc68dIItj4T0nAU8VWjv VXLurY9gLFdbYrU0 VQGlHdVycV86cROgSPzc Yo9zpLbheLaqNE3dAAHr txzcKLEuiT2nFHKwfTNo iEqoOP6tIVIrbkye r693JoFlOIL9LTUebWJz S2KyaN0fZhBgCGPyVBBr Y9WsjJKpBUwbS622NGgy RlS8JVBimxTyA5Tn ENEzqRlkYqR1u3X5Ul2C x3PzkgkwUIY1PFqmJKB5 CbX8RmLpQvP6G6PxZbw5 GWXczWssQX6uP2Ax EAFprvxzufxmjJJ5JGRd XFRotI07fAOsNBxjIc1n l4Y3t907COIaJHEnwM70 Fz8nsAetRQKvkYFW hI8sovcfh0pckkolHhFu CRZxKBd3YQd6MGQsuKdq VrNwFAN5WrC0QLS5hUNv zP7iuNmkgqlhzK0f Oyc+K23vaR0jMKD5JJP8 irnrRSVayhQbEO90VU61 D6RkVqkcsMIwxLJ+PGRp ewQbfXxjFR2jLhGk p8cgp9GgYNzqW5DjAEIr HZjeLnd7DPHvRFM2xHI2 pE3cVHUaPSzym1Y8mOZ6 S3GlviNpfx9er8st TFSsBJreF54dgRSob0R0 RSOryNH5MZQdpEgbCyIu yB61Oxo+TENqoPmpl7Ap Vbhwo6avd4qylSu7 IjMwJSIgdmFsaWduPSJ0 h0ZhEb03I18eWTmeOZFh VMXgJJNaHXHpkVudhf0e lJ8dPn3+PGNvbCB3 fIK7mL1dEMHeSgE8HIig B693TsNefEVzPzhbt2sl r7rtfCw8TeNqMWKnwwPd cCtgWHH2e2LwJh43 Z76qXZoaJHJdORIcWZPo FZOupErrcy2gxM0pLl5+ BU5hv7lmby52iX09kBE+ WQDxMGN6iTqdYStm IVZddX7fSVjyIlU4ZPHg SeZpkJ22nOOmLZubHa5n qOlkcGxdXC1kISTyidtq m613EkTom8vtIIRe dJByEApoRDT3H73gm0G2 LHDaFPDfATE1cDM3wS5l bGlnbjogbGVmdDsgdmVy zLoxYAycSStjI685 IHRvcDsnPlBhdGllbnQg CoUeOSc3L3XfKmj2MQKq dYjwXK5wqVWoGTjmAr6h ePxoyElhSS2cJBMq zdtdw244QuUnp4fiTQKn dIGhQKeuHXO6X95yv3Y0 EKUgSCSrBIX3nFR3jF0o bGlnbjogbGVmdDsg mgZqyKnwGWngZFnmH462 IHRvcDsnPkJpcnRoIERh eXF9VQ30VP90nFAvn6V4 kCG9L1IdMBRizioz afbshYD3RMHbNEPrtL37 Bo6ptDxwKi7jGCCrROZ8 SEDtpOCxU1LzwZ3hUuQp KUJrBEMnG5IweJTa IOysD232EXpzVlR4IJYa zfWsX8TpQHLsqHssTxP7 i7J0Td8QI6D7ZV16CQ45 iJDct7U2eJU2U5Fu WZRtydavdwhghNO8UKEz ZTYjkE73Qw8erVirDi7f TKPeJEL0UPOwrYNtL4Vu uT1wTtRcKDPwJAJm O5JskPMsZJcrX750DLhg AmI2XHAcxrZlS5VwPUWc cKdwSnV0v0E1Zl5LKMn2 HF58FQ96bRNsr3X3 wZF5V3WpYSXhdpeoreri eWI6JYOhAYAifU29Bl9b oSugAc8pBAZiSGJ4JMBx dIFgA8XdhR6zWoTn VVXdVWEzC0AmjYRnCVru L457DLsmFxM6RFNqhvLz Z6GqUWZgnUdxCyL2j0H9 La3OUUDuMH83DOE9 rHX9XM77LM18M3PlBvjw dGFibGU+PHRhYmxlIHdp ZHRoPScxMDAlJyBzdHls IO1aMl3iGRGbKVDx xHvjnCXlMzLkk6bdFNJv PUviDV5wnPjpR1TghZE6 ZKAcp6x4Vr62F55iF2Xo dXA+SUHgfDL9dEV1 kA9aOlNqOcO7PPwaP924 FpOaxTDqNdifj9kho1dp wPv7QxW1CHMyguXbcNos DYB1z1JhSr47D69b IHdpZHRoPSIxNSUiIHZh lAumly8jxZ9mRk9+PGNv mTS2hUU6wH7zUqMkSiL8 OUibK422FdDogUFy Bnazc8oxi9iefBv7CyQt TMMjotYxkUljNOP7u6Hn El51A5KcxEkuz1FwAxw5 ml27bMFmu9T6mRE5 S1HcCOEfenahtPMliUhf MJ4zKQZrpnztFVPvqR2m IUDdR3s4DiByFnU0PByb N6AahgX7IPZspPUo CQiiFWN3Y06wc0W8JYEp LTIzZSL6kCB5oS8zlMoz bjogbGVmdDsgdmVydGlj NFiyTBfjQ726FUCi lDoaHAUuyQ3sXBIawWRa aErmOL7pYWRvixtzUsNA QUlMRVksIFRPTllBIEdB RPF5X2GnVyn4JYBw dUyyOE0snMItRZtmAn3j uOqlwXteSU6kZSWxbjuz FMOliS5mXKCkkRWquZba VY7pWBKtuqphy845 TqWrOQC3ARIfpQBuT7Lp pT9kKbIoFIWmWWNkZ3Ho vVZoROcdM572ZUcqCdZ4 BXXxthMiF9HbVOMe nWnpXeL1m6O2Lt9nMr3z Pr8tLYC1ES12UF87rKDj l8H1yWB2W1CaGIWtgiwy iqnigAL1YXVbZLTk vG07uIJpQZbqKu8iu8V7 j532TLVvNENhqG70En1d wDhiZHFzsOYZbB3nsivd v1oojpsnRgIcJHMu BPz1UKq3UEAurGakKiZd BYM2KyT2LFJ8oGKpqC5y xZbkohvcqP6jCrf+NzQg EKZjlrZ8D1CnLlc2 XQOfvGueUL1ikXZtBQbk Qm2dpStnzUqpPQ8aKQHm lcreYGDgrJ0tJWFezALq jQoyJD4bXTCrefda v590GiCdKCL1FPSiyMTy J6TxoY7eNoWyRBTqKYIi Z8IqtALaDTrrL938OLpg MmB5FDTagsEwB1Ip HESytIhgKeH3x1P9Db2E PF7TBCW7A0VaYhj7IHWg eYriIE4atIJkQEymPq2j mOyenRxoMY1aRLZd xqttQGGtbD6oNTVznMNh vKdeSR7yJETvmhrry025 PfOqBKC3JSZavATnF4Lo xH2vDbNwRGMlAWHk M8ApeGGbONnqT401DSls YcV9YKYipiFlA2ToGWZy jZqeLcD5g2G1Vx5EVkHg cnZhdGlvbjwvdGQ+ XD86ke11W7GwBhrcVgg4 ZDCgOXF1wWZ1eE2jRNAr PRvag3I9aPV2B6CrqlWz je2ig3kfENTvPNvt Z64zzBCdw7V5SXVadRD0 ASEooWciArOkyU92Jar+ WEDfuWcal9IrCyxcp7jq y9jpiVm3OnVaPHTy fnJzyUgeJXD2c7UoIu63 H57cLYepUVZnFYJhQMYq AUOjcRsixq3rqR1bMa5+ GKYawFS3wAX3gI0h RvHoDrU4RIhrV568NbKc xDMoKpaux2jev9bpeGl9 IjIwJSIgdmFsaWduPSJ0 c9WtYt17X1JpdWhl l1ExKwm5ut79rYPuu0V5 tMX4L7KlGFNqkcxdxORr vOztKS1kBKDlvxtrOWZl zT1jIOTiL5o3PmXh VoR6GLozC8FprjE3AGUo rVQnIUMpzQQLeX5dwbuc t3utjxyoVjWsEJDbZYv0 UJr4XWBewTquMiYi DGS7ZbG3ZCB7tBUxsE1u fIlvtlezzN1pRvx+UGh5 s6mcxSNlJR9erAE3CC79 DW34xMLxw7D4zXL2 Z7UkCIJsnntpvwkivJB9 ACTzVSVpxK21Ak9biHuz Ix4tWEDlSXE0THQlaUHv G9KnqR3uVbHvDUQr YAVlV9TkoLQrWGodR753 GArePfT7PAPnlqJsM4Jt KWQysWmtOcP6s4K2Hi1Z RJ31UP39BC18sCNy h2R1pXK8B0IoYVApoibg oepbgPZ4ARSqSBFnrO74 Fu0abSlyYp1gYRRqJWX1 DCJswQGaG1ZcqD3q UbJaLSIqUSOxB0GqfIGq JApvE184RUuyHfF1GPZt cmBsW6MwMKYkuQxuUhH4 p6W7Es4VRy66CC51 ZN92tMUbp9M2bQA4Z7Ws EWCiqdlkwrtjjLA0RKSn SARwsH10Eg6ktSqiBj0k UUMuPQV6ZXYpcIZj E4MeoE6pLyAxBBWuQVJq B4BcdIRrYJfaK382YPsk CmQ9VXQuobYdV0CaZMCc fHgfEwR2i9N4Ex9Z HDauikj6I7NuEwcluUR+ DH35KUOvXN29rXPsyAVl l0igoFu8WwHeIAIkXXY4 pAyjKHhfe4FxKPAx Y29 (more content not included)... [facility] Consent Formson 12-19-2021 Consent Forms [id number] #1.00OTGTIFF [facility] Consultation/Specialist Note on 12-19-2021 Consultation/Speci alist Note [id number] #1.00OTGTIFF [facility] Electronic Messagingon 12-19 Electronic Messaging --- --- --- --- --- --- --- --- --- From: Direct[employer] ([email or web address]), Directtest To: NGUYEN BURNS Sent: 12/19/21 04:59:55 AM EDT Subject: Discharge Summary Ready to View A summary regarding your recent visit is available in the Documents section of your Health Record. [facility] Outside Recordson 12-19-2021 Outside Records [id number] #1.00OTGTIFF [facility] Provider Orderson 12-19-2021 Provider Orders [id number] [facility] [id number] [facility]-18-2021 Inpatient [place] [address] Patient Discharge Instructions Name: NGUYEN BURNS : 1945 Patient Address: [address] [place] [address] Primary Care Provider: Name: Elliot Starks MD After you are discharged if you find you have any questions, please, call [phone] ext [phone] to speak to a nurse. The Pharmacy at [facility] is open Thursday through Thursday from 9A to 6P and Thursday and Thursday from 9A to 5P Discharge Diagnosis: Acute post-operative pain; Primary osteoarthritis of right hip Prescription Information: If you have been given a prescription for narcotics, seek immediate medical attention if you have any difficulty breathing or any sudden status changes such as confusion and sleepiness. If you or anyone you know is experiencing suicidal thoughts, mental health, alcohol and/or drug addiction problems; contact the [facility] 24/11 Crisis Hotline -Text 4HOPE to 268815. If you received any narcotics, sedation, or any other medication that causes drowsiness for the next 24 hours, unless otherwise directed: ? Do not drive a car. ? Do not operate machinery such as power tools, lawn mowers, drills, sewing machines, or stoves ? Avoid alcoholic beverages and drugs for allergies, nerves, or sleep ? Do not make important personal or business decisions or sign any legal documents [facility] would like to thank you for allowing us to assist you with your healthcare needs. The following includes patient education materials and information regarding your injury/illness. NGUYEN BURNS has been given the following list of follow-up instructions, prescriptions, and patient education materials: Follow-up Instructions With: Address: When: Melchor Rivera [address] [facility], [address] [place] [address] Business (1) 12/24/2021 2:30 AM With: Address: When: Elliot Starks [address] [place] [address], [place] [address] Business (1) Medications During the course of your visit, your medication list was updated with the most current information. The details of those changes are reflected below: Medications That Were Updated - Follow Below Instructions Other Medications Updated: omeprazole (omeprazole 40 mg oral delayed release capsule) 1 cap(s) Oral 2 times a day. Medications to Continue That Have Not Changed Other Medications apixaban (Eliquis 5 mg oral tablet) 1 tab(s) Oral 2 times a day. atenolol (atenolol 50 mg oral tablet) 1.5 tab(s) Oral every day. cholecalciferol (Prevagen) 1 tab(s) Chewed every day. ferrous sulfate (FeroSul 325 mg (65 mg elemental iron) oral tablet) 1 tab(s) Oral every day. hydroCHLOROthiazide (hydroCHLOROthiazide 25 mg oral tablet) 1 tab(s) Oral every day. lisinopril (lisinopril 20 mg oral tablet) 1 tab(s) Oral every day. melatonin (melatonin 10 mg oral tablet) 3 tab(s) Oral once a day (at bedtime) as needed as needed for insomnia. naproxen (Aleve Easy Open Arthritis 220 mg oral tablet) 1 tab(s) Oral Every 12 hours scheduled time as needed as needed for pain. oxyCODONE (oxyCODONE 5 mg oral tablet) 1 tab(s) Oral Every 6 hours as needed for pain for 5 Days. Refills: 0. potassium chloride (potassium chloride 10 mEq oral tablet, extended release) 1 tab(s) Oral 2 times a day. temazepam (temazepam 30 mg oral capsule) 1 cap(s) Oral At bedtime as needed for sleep. It is important to always keep an active list of medications available so that you can share with other providers and manage your medications appropriately. As an additional courtesy, we are also providing you with your final active medications list that you can keep with you. apixaban (Eliquis 5 mg oral tablet) 1 tab(s) Oral 2 times a day. atenolol (atenolol 50 mg oral tablet) 1.5 tab(s) Oral every day. cholecalciferol (Prevagen) 1 tab(s) Chewed every day. ferrous sulfate (FeroSul 325 mg (65 mg elemental iron) oral tablet) 1 tab(s) Oral every day. hydroCHLOROthiazide (hydroCHLOROthiazide 25 mg oral tablet) 1 tab(s) Oral every day. lisinopril (lisinopril 20 mg oral tablet) 1 tab(s) Oral every day. melatonin (melatonin 10 mg oral tablet) 3 tab(s) Oral once a day (at bedtime) as needed as needed for insomnia. naproxen (Aleve Easy Open Arthritis 220 mg oral tablet) 1 tab(s) Oral Every 12 hours scheduled time as needed as needed for pain. omeprazole (omeprazole 40 mg oral delayed release capsule) 1 cap(s) Oral 2 times a day. oxyCODONE (oxyCODONE 5 mg oral tablet) 1 tab(s) Oral Every 6 hours as needed for pain for 5 Days. Refills: 0. potassium chloride (potassium chloride 10 mEq oral tablet, extended release) 1 tab(s) Oral 2 times a day. temazepam (temazepam 30 mg oral capsule) 1 cap(s) Oral At bedtime as needed for sleep. Take only the medications listed above. Contact your doctor prior to taking any medications not on this list. (more content not included)... [facility] [place] [facility] [place] Record Summary Primary Physician: Melchor Rivera DO Finalized Date/Time: 12/18/21 09:06:00 Pt. Name: NGUYEN BURNS /Sex: 1945 FEMALE Med Rec #: [id number] Physician: Melchor Rivera DO Financial #: [id number] Pt. Type: O Room/Bed: [facility]/ Admit/Disch: 12/16/21 06:48:01 - Institution: Phase II Case Times [facility] Pre-Care Text: Patient is free from s/s of injury. Patient remains free from compromised physical state related to surgery or anesthesia. Patient comfort maintained. Patient/family verbalize understanding of discharge instructions. Entry 1 In PACU II 12/16/21 14:11:00 Discharge from PACU 12/16/21 15:09:00 II Last Modified By: Yareli Crouch RN 12/18/21 09:05:58 Post-Care Text: The patient remains free from s/s of injury. Patient's vital signs stable, circulation maintained, return to preop mental and physical status, opsite/dressing intact, minimal or absent nausea and vomiting, tolerates po intake. Patient verbalizes adequate pain control. Patient/family express understanding of discharge instructions. Finalized By: Yareli Crouch RN Document Signatures Signed By: Yareli Crouch RN 12/18/21 09:06 [facility] Pharmacy Noteon 12-18-2021 Pharmacy Note I have personally reviewed the patient's medication list upon discharge including, prescription medications, OTC products, vitamins and supplements. Below are the following medications the patient is discharged on. Medications That Were Updated - Follow Below Instructions Other Medications Updated: omeprazole (omeprazole 40 mg oral delayed release capsule) 1 cap(s) Oral 2 times a day. Medications to Continue That Have Not Changed Other Medications apixaban (Eliquis 5 mg oral tablet) 1 tab(s) Oral 2 times a day. atenolol (atenolol 50 mg oral tablet) 1.5 tab(s) Oral every day. cholecalciferol (Prevagen) 1 tab(s) Chewed every day. ferrous sulfate (FeroSul 325 mg (65 mg elemental iron) oral tablet) 1 tab(s) Oral every day. hydroCHLOROthiazide (hydroCHLOROthiazide 25 mg oral tablet) 1 tab(s) Oral every day. lisinopril (lisinopril 20 mg oral tablet) 1 tab(s) Oral every day. melatonin (melatonin 10 mg oral tablet) 3 tab(s) Oral once a day (at bedtime) as needed as needed for insomnia. naproxen (Aleve Easy Open Arthritis 220 mg oral tablet) 1 tab(s) Oral Every 12 hours scheduled time as needed as needed for pain. oxyCODONE (oxyCODONE 5 mg oral tablet) 1 tab(s) Oral Every 6 hours as needed for pain for 5 Days. Refills: 0. potassium chloride (potassium chloride 10 mEq oral tablet, extended release) 1 tab(s) Oral 2 times a day. temazepam (temazepam 30 mg oral capsule) 1 cap(s) Oral At bedtime as needed for sleep. Counseled patient on oxycodone and what to expect. Advised patient she could experience constipation and OTC stool softener would help if that does happen. Counseled on keeping medication in safe place away from other and children. [Electronically Signed on: 12/18/2021 09:03 EDT] Michoacano Evans [Verified on: 12/18/2021 09:03 EDT] Michoacano Evans [facility] Pharmacy Note Home Medications (12) Active Aleve Easy Open Arthritis 220 mg oral tablet 220 mg = 1 tab(s), PRN, PO, q12hr atenolol 50 mg oral tablet 75 mg = 1.5 tab(s), PO, Daily Eliquis 5 mg oral tablet 5 mg = 1 tab(s), PO, BID FeroSul 325 mg (65 mg elemental iron) oral tablet 325 mg = 1 tab(s), PO, Daily hydroCHLOROthiazide 25 mg oral tablet 25 mg = 1 tab(s), PO, Daily lisinopril 20 mg oral tablet 20 mg = 1 tab(s), PO, Daily melatonin 10 mg oral tablet 30 mg = 3 tab(s), PRN, PO, Once a day (at bedtime) omeprazole 40 mg oral delayed release capsule 40 mg = 1 cap(s), PO, BID oxyCODONE 5 mg oral tablet 5 mg = 1 tab(s), PRN, PO, q6hr potassium chloride 10 mEq oral tablet, extended release 10 mEq = 1 tab(s), PO, BID Prevagen 1 tab(s), Chewed, Daily temazepam 30 mg oral capsule 30 mg = 1 cap(s), PRN, PO, HS [Electronically Signed on: 12/18/2021 08:42 EDT] Michael Franklin [Verified on: 12/18/2021 08:42 EDT] Michael Franklin [facility] Progress Note - Nurseon 12-02 Progress Note - Nurse Discharged to home. Taken to awaiting vehicle via wheelchair. Belongings and walker given to patient. [Electronically Signed on: 12/18/2021 14:48 EDT] Tran Valenzuela RN [Verified on: 12/18/2021 14:48 EDT] Tran Valenzuela RN Normal [facility] .Auto Diff 1on 12-17-2021 Auto [place] % 11 % Normal 05-15 [facility] Comment on above: Performed By: #### 7 [id number], [id number], [id number] #### [facility] (DEFAULT) [address] [place] [address] Baso Abs# 0.0 x10 Normal 0.0-0.2 [facility] Comment on above: Performed By: #### [id number], [id number] #### [facility] (DEFAULT) [address] [place] [address]608 Basophils/100 WBC (Bld) 0.2 % Normal 0.2-2.0 [facility] Comment on above: Performed By: #### 7 [id number], [id number] #### [facility] (DEFAULT) [address] [place] [address] Eos Abs# 0.0 x10 Normal 0.0-0.4 [facility] Comment on above: Performed By: #### 7 [id number], [id number] #### [facility] (DEFAULT) [address] [place] [address] 28653 Eosinophils/100 WBC (Bld) 0.4 % Low 0.9-4.0 [facility] Comment on above: Performed By: #### 7 [id number], [id number] #### [facility] (DEFAULT) [address] [place] [address] 07958 Lymph Abs# 1.5 x10 Normal 1.3-2.9 [facility] Comment on above: Performed By: #### 7 [id number], [id number] #### [facility] (DEFAULT) [address] [place] [address] 77604 Lymphocytes/100 WBC (Bld) 18 % Normal 14-48 [facility] Comment on above: Performed By: #### 7 [id number], [id number] #### [facility] (DEFAULT) [address] [place] [address] [place] Abs# 0.9 x10 High 0.0-0.8 [facility] Comment on above: Performed By: #### 7 [id number], [id number] #### [facility] (DEFAULT) [address] [place] [address] [id number] Neut Abs# 5.8 x10 Normal 1.5-9.2 [facility] Comment on above: Performed By: #### 7 [id number], [id number] #### [facility] (DEFAULT) [address] [place] [address] 70143 Neutrophils/100 WBC (Bld) 70 % Normal 44-88 [facility] Comment on above: Performed By: #### 7 [id number], [id number], [id number] #### [facility] (DEFAULT) [address] [place] [address] Advance Directive Documentso n 12-17-2021 Advance Directive Documents [id number] #1.00OTGTIFF Normal [facility] Advance Directive Documents [id number] #1.00OTGTIFF Normal [facility] BMP Standardon 12-17-2021 eGFR Non AA 55 mL/min/1.73m2 Invalid Interpretation Code [facility] Comment on above: Performed By: #### 7 [id number], [id number], [id number] ####[facility] (DEFAULT)[address] [place] [address] eGFR AA >60 Invalid Interpretation Code [facility] Comment on above: Result Comment: Solid Waste Engineer juan diego Kidney disease could be indicated at eGFRs of less than 60 ml/min/1.73m2. Kidney Failure is indicated at less than 15 ml/min/1.73m2 Performed By: #### 7 [id number], [id number], [id number] ####[facility] (DEFAULT)[address] [place] [address] Anion gap [Moles/Vol] 10.0 mmol/L Normal 5.0-19.0 [facility] Comment on above: Performed By: #### 7 [id number], [id number], [id number] ####[facility] (DEFAULT)[address] [place] [address] Calcium [Mass/Vol] 8.9 mg/dL Normal 8.9-10.3 [facility] Comment on above: Performed By: #### 7 [id number], [id number], [id number] ####[facility] (DEFAULT)[address] [place] [address]9598 Chloride [Moles/Vol] 100 mmol/L Low 101-111 [facility] Comment on above: Performed By: #### 7 545821, [id number], [id number] ####[facility] (DEFAULT)[address] [place] [address] 26226 CO2 [Moles/Vol] 29 mmol/L Normal 21-32 [facility] Comment on above: Performed By: #### 7 424681, [id number], [id number] ####[facility] (DEFAULT)[address] [place] [address]13 Creatinine [Mass/Vol] 0.98 mg/dL Normal 0.60-1.30 [facility] Comment on above: Performed By: #### 7 743144, [id number], [id number] ####[facility] (DEFAULT)[address] [place] [address] 52581 Glucose [Mass/Vol] 127.0 mg/dL High 74.0-118.0 [facility] Comment on above: Performed By: #### 7 [id number], [id number], [id number] ####[facility] (DEFAULT)[address] [place] [address] 78265 Osmolality 275 mOsm/L Invalid Interpretation Code [facility] Comment on above: Performed By: #### 7 853978, [id number], [id number] ####[facility] (DEFAULT)[address] [place] [address] 47796 Potassium [Moles/Vol] 3.9 mmol/L Normal 3.6-5.1 [facility] Comment on above: Performed By: #### 7 776041, [id number], [id number] ####[facility] (DEFAULT)[address] [place] [address] 69997 Sodium [Moles/Vol] 135.0 mmol/L Low 136.0-144.0 [facility] Comment on above: Performed By: #### 7 263541, [id number], [id number] ####[facility] (DEFAULT)[address] [place] [address] 90981 Urea nitrogen [Mass/Vol] 23 mg/dL Normal 8-26 [facility] Comment on above: Performed By: #### 7 975086, [id number], [id number] ####[facility] (DEFAULT)[address] [place] [address] Urea nitrogen/Creatinin e [Mass ratio] 23.0 mg/mg High 4.6-16.2 [facility] Comment on above: Performed By: #### 7 142074, [id number], [id number] ####[facility] (DEFAULT)[address] [place] [address] CBC w/ Auto Diffon 2 Erythrocyte distribution width (RBC) [Ratio] 15.5 % High 11.5-15.0 [facility] Comment on above: Performed By: #### 7 [id number], [id number], [id number] #### [facility] (DEFAULT) [address] [place] [address] Hematocrit (Bld) [Volume fraction] 33.6 % Low 33.7-40.4 [facility] Comment on above: Performed By: #### 7 777360, [id number], [id number] #### [facility] (DEFAULT) [address] [place] [address] Hemoglobin (Bld) [Mass/Vol] 10.8 g/dL Low 11.3-15.9 [facility] Comment on above: Performed By: #### 7 [id number], [id number], [id number] #### [facility] (DEFAULT) [address] [place] [address] Instr WBC 8.2 x10 Invalid Interpretation Code [facility] Comment on above: Performed By: #### 7 754901, [id number], [id number] #### [facility] (DEFAULT) [address] [place] [address] Man Diff? Auto Normal [facility] Comment on above: Performed By: #### 7 196726, [id number], [id number] #### [facility] (DEFAULT) [address] [place] [address] MCH (RBC) [Entitic mass] 30 pg Normal 24-34 [facility] Comment on above: Performed By: #### 7 [id number], [id number], [id number] #### [facility] (DEFAULT) [address] [place] [address] MCHC (RBC) [Mass/Vol] 32 g/dL Normal 26-37 [facility] Comment on above: Performed By: #### 7 316565, [id number], [id number] #### [facility] (DEFAULT) [address] [place] [address] MCV (RBC) [Entitic vol] 95 fL Normal 81-100 [facility] Comment on above: Performed By: #### 7 638917, [id number], [id number] #### [facility] (DEFAULT) [address] [place] [address] Platelet 209 x10 Normal 138-427 [facility] Comment on above: Performed By: #### 7 635254, [id number], [id number] #### [facility] (DEFAULT) [address] [place] [address] Platelet mean volume (Bld) [Entitic vol] 8.3 fL Normal 6.3-10.2 [facility] Comment on above: Performed By: #### 7 023616, [id number], [id number] #### [facility] (DEFAULT) [address] [place] [address] RBC 3.55 x10 Low 3.70-5.30 [facility] Comment on above: Performed By: #### 7 174334, [id number], [id number] #### [facility] (DEFAULT) [address] [place] [address] WBC 8.2 x10 Normal 3.5-10.5 [facility] Comment on above: Performed By: #### 7 310176, [id number], [id number] #### [facility] (DEFAULT) [address] [place] [address] Consultation/Specialist Note on 12-17-2021 Consultation/Speci alist Note Patient: NGUYEN BURNS Age: 76 years Sex: FEMALE : 1945 Associated Diagnoses: None Author: GERHARD MOREL Basic Information 1 day s/p RT PAULA (DOS 12/16/21) Subjective pt doing ok, she is having nausea, she notes he slept ok last night, pain is 2-3/10 at rest and with activities 4/10, she was up with therapy yesterday, she was up about every hour during the night to go to the bathroom Review of Systems denies chest pain and shortness of breath Health Status Allergies: Allergic Reactions (All) Severe Morphine- Itchy, vomiting and rash. Moderate Codeine- Itchy, nausea and rash. Levaquin- Nausea, itchy and rash. Tape- Blister. TraMADol- Nausea, rash and itchy. Ultram- Itchy, rash and nausea. Vicodin- Itchy, nausea and rash. Nonallergic Reactions (All) Mild Penicillin- Nausea. Objective dressing to right hip clean dry and intact, mary hose on, epc cuffs on, negative homans sign bilaterally Review / Management Results review: Lab results 12/17/2021 5:20 EDT WBC 8.2 x103/mcL RBC 3.55 x106/mcL LOW Hgb 10.8 gm/dL LOW Hct 33.6 % LOW MCV 95 fL MCH 30 pg MCHC 32 gm/dL RDW 15.5 % HI Platelet 209 x103/mcL MPV 8.3 fL Auto Neut % 70 % Auto Lymph % 18 % Auto [place] % 11 % Auto Eos % 0.4 % LOW Auto Baso % 0.2 % Neut Abs# 5.8 x103/mcL Lymph Abs# 1.5 x103/mcL [place] Abs# 0.9 x103/mcL HI Eos Abs# 0.0 x103/mcL Baso Abs# 0.0 x103/mcL Sodium Level 135.0 mmol/L LOW Potassium Level 3.9 mmol/L Chloride Level 100 mmol/L LOW CO2 29 mmol/L Anion Gap 10.0 mmol/L Glucose Level 127.0 mg/dL HI BUN 23 mg/dL Creatinine Level 0.98 mg/dL BUN/Creat Ratio 23.0 HI eGFR AA >60 mL/min/1.73m2 NA eGFR Non AA 55 mL/min/1.73m2 NA Calcium Level 8.9 mg/dL Osmolality 275 mOsm/L NA . Impression and Plan d/c home once has been up with therapy at least twice more and pain and nausea well controlled, f/u in office within 10-12 days s/p surgery [Electronically Signed on: 12/17/2021 07:03 EDT] GERHARD MOREL [Verified on: 12/17/2021 07:03 EDT] GERHARD MOREL [facility] MAGR Intraoperative Recordon 12-17-2021 MAGR Intraoperative Record MAGR Intra-Op Record Summary Primary Physician: Melchor Rivera DO Finalized Date/Time: 12/17/21 10:27:53 Pt. Name: NGUYEN BURNS /Sex: 1945 FEMALE Med Rec #: [id number] Physician: Melchor Rivera DO Financial #: [id number] Pt. Type: O Room/Bed: [facility] Admit/Disch: 12/16/21 06:48:01 - Institution: Case Times MAGR Entry 1 Patient In Room Time 12/16/21 10:05:00 Out Room Time 12/16/21 13:00:00 Anesthesia Start Time 12/16/21 10:05:00 Stop Time 12/16/21 13:04:00 Surgery Start Time 12/16/21 11:17:00 Stop Time 12/16/21 12:50:00 Last Modified By: Steffanie Damian RN 12/16/21 14:27:22 Case Attendance MAGR Entry 1 Entry 2 Entry 3 Case Attendee Melchor Rivera Jacquelyn RN Yontz, Christopher J DO Andrew DO Role Performed Surgeon - Primary Air Pollution Inspector Anesthesiologist of Record Time In 12/16/21 10:14:00 12/16/21 10:05:00 12/16/21 10:05:00 Time Out 12/16/21 12:28:00 12/16/21 13:00:00 12/16/21 13:00:00 Procedure Arthroplasty Total Arthroplasty Total Arthroplasty Total Hip(Right) Hip(Right) Hip(Right) Last Modified By: Marah Blancas RN, Jacquelyn RN Burns, Jacquelyn RN 12/16/21 13:02:42 12/16/21 13:02:42 12/16/21 13:02:42 Entry 4 Entry 5 Entry 6 Case Attendee Son REECE, Kadie Porter [employer] CST BUSINESS TECHNOLOGY ANALYST Role Performed Scrub Personnel Warehouse Logistics Coordinator Warehouse Logistics Coordinator Time In 12/16/21 10:05:00 12/16/21 10:05:00 12/16/21 10:05:00 Time Out 12/16/21 13:00:00 12/16/21 13:00:00 12/16/21 13:00:00 Procedure Arthroplasty Total Arthroplasty Total Arthroplasty Total Hip(Right) Hip(Right) Hip(Right) Last Modified By: Marah Blancas RN, Jacquelyn RN Burns, Jacquelyn RN 12/16/21 13:02:42 12/16/21 13:02:42 12/16/21 13:02:42 General Comments: DEPUY REP: UZAIR CUELLAR TIME OUT AT 1228 Surgical Procedures MAGR Pre-Care Text: A.20 Verifies operative procedure, surgical site, and laterality Im.150 Develops individualized plan of care Entry 1 Procedure Arthroplasty Total Hip Primary Procedure Yes Primary Surgeon Melchor Rivera DO Surgeon Comment Right Total Hip Start 12/16/21 11:17:00 Stop 12/16/21 12:50:00 Anesthesia Type General Surgical Service Orthopedics Wound Class Clean Technique Details Closure Technique Primary Entire procedure No was performed via laparoscope or robotic assistance Last Modified By: Marah Blancas RN 12/16/21 13:02:37 Post-Care Text: O.730 The patient's care is consistent with the individualized perioperative plan of care General Case Data MAGR Pre-Care Text: A.350.1 Classifies surgical wound Entry 1 Case Information OR MAGR OR 01 Case Level Level 5 Wound Class Clean Specialty Orthopedics ASA Class 3 Diagnosis Preop Diagnosis Right hip DJD Postop Same As Preop Yes Postop Diagnosis Right hip DJD Blunt or No Is the procedure No penetrating injury considered occured prior to Emergent/Urgent? the start of the procedure: Last Modified By: Marah Blancas RN 12/16/21 11:21:45 Post-Care Text: O.760 Patient receives consistent and comparable care regardless of the setting Time Out MAGR Entry 1 Time out date/time 12/16/21 11:15:00 All team members Yes have introduced themselves by name and role Surgeon, Yes Surgeon reviews Yes anesthesia, nurse critical or confirm patient, unexpected steps, site, procedure operative duration, anticipated blood loss Anesthesia team Yes Nursing team Yes reviews any reviews sterility patient-specific (including concerns indicator results) and equipment issues/concerns Antibiotic Antibiotic Yes prophylaxis given within the last 60 minutes Last Modified By: Marah Blancas RN 12/16/21 11:20:28 Patient Positioning MAGR Pre-Care Text: A.280 Identifies baseline musculoskeletal status Im.40 Positions the patient Im.80 Applies safety devices Entry 1 Procedure Arthroplasty Total Body Position Lateral Hip(Right) Left Arm Position Extended on padded arm Right Arm Position Extended board Left Leg Position Extended Right Leg Position Extended Feet Uncrossed? Yes Press Points Checked Yes Additional HEEL GEL UNDER LEFT Positioning Device Arm Boards, Arm Strap, Information ANKLE. TOWELS FOR Pillow, Peg Board, PADDING UNDER LEFT ARM. Safety Strap RIGHT ARM IS RESTING ON PILLOWS ABOVE THE LEFT ARM. Outcome Met (O.80) Yes Last Modified By: Marah Blancas RN 12/16/21 11:24:10 Post-Care Text: E.290 Evaluates musculoskeletal status O.80 Patient is free from signs and symptoms of injury related to positioning Skin Prep MAGR Pre-Care Text: A.30 Verifies allergies Im.270 Performs skin preparation Im.270.1 Implements protective measures to prevent skin and tissue injury due to chemical sources Entry 1 Skin Prep Syntegrity Prep Agents (Im.270) Chlorhexidine Gluconate Prep By Marah Blancas RN and Alcohol (more content not included)... Normal [facility] Anesthesia Noteon 12-16-2021 Anesthesia Note Patient: NGUYEN BURNS Age: 76 years Sex: FEMALE : 1945 Associated Diagnoses: None Author: Luis Hernández DO Postoperative Information Post Operative Note: Post Anesthesia Care Unit. Anesthetic utilized: General. Physical Examination VS/Measurements VSS. See nursing flowsheet for vital sign measurements. General: No acute distress. Respiratory: Respirations are non-labored. Cardiovascular: Stable hemodynamics.. Neurologic: Alert, Oriented. Review / Management Condition: Stable. Assessment Anesthetic outcome No anesthetic complications noted. Adequate pain relief. No Complaint of nausea and vomiting. Plan Transfer/ Discharge: Patient can be discharged from PACU when criteria met. Condition stable. [Electronically Signed on: 12/16/2021 13:39 EDT] Luis Hernández DO [Verified on: 12/16/2021 13:39 EDT] Luis Hernández DO [facility] Anesthesia Note Patient: NGUYEN BURNS Age: 76 years Sex: FEMALE : 1945 Associated Diagnoses: None Author: Luis Hernández DO Preoperative Information Anesthesiologist scheduled: Luis Hernández DO > 8 hours Anesthesia history: Patient history: Nausea and vomiting with anesthesia, Slow to awaken. Re-evaluation prior to induction: Completed. Initial evaluation reviewed: No significant interval change. Review of Systems Constitutional: No fever, No chills. Respiratory: No shortness of breath. Cardiovascular: No chest pain. Gastrointestinal: No heartburn. Neurologic: Negative. ROS reviewed as documented in chart Health Status Allergies: Allergic Reactions (All) Severe Morphine- Itchy, vomiting and rash. Moderate Codeine- Itchy, nausea and rash. Levaquin- Nausea, itchy and rash. Tape- Blister. TraMADol- Nausea, rash and itchy. Ultram- Itchy, rash and nausea. Vicodin- Itchy, nausea and rash. Nonallergic Reactions (All) Mild Penicillin- Nausea. Current medications: (Selected) Inpatient Medications Ordered LR 1,000 mL: 20 mL/hr, IV Lidocaine 1% injectable solution: 0.1 mL, ID, Once, PRN: Other (see comment) clindamycin: 600 mg = 4 mL, 200 mL/hr, IV Piggyback, Plastic Boat Patcher tranexamic acid: 1,000 mg = 100 mL, 300 mL/hr, IV Piggyback, Once Documented Medications Documented Aleve Easy Open Arthritis 220 mg oral tablet: 220 mg = 1 tab(s), PO, q12hr, PRN: as needed for pain Eliquis 5 mg oral tablet: 5 mg = 1 tab(s), PO, BID FeroSul 325 mg (65 mg elemental iron) oral tablet: 325 mg = 1 tab(s), PO, Daily Prevagen: 1 tab(s), Chewed, Daily atenolol 50 mg oral tablet: 75 mg = 1.5 tab(s), PO, Daily hydroCHLOROthiazide 25 mg oral tablet: 25 mg = 1 tab(s), PO, Daily lisinopril 20 mg oral tablet: 20 mg = 1 tab(s), PO, Daily melatonin 10 mg oral tablet: 30 mg = 3 tab(s), PO, Once a day (at bedtime), PRN: as needed for insomnia, 200 tab(s), 0 Refill(s) omeprazole 20 mg oral delayed release tablet: 20 mg = 1 tab(s), PO, Daily potassium chloride 10 mEq oral tablet, extended release: 10 mEq = 1 tab(s), PO, BID temazepam 30 mg oral capsule: 30 mg = 1 cap(s), PO, HS, PRN: for sleep Problem list (past medical history): All Problems Arthritis, hip / SNOMED CT 6613983611 / Confirmed Afib / SNOMED CT 72934627 / Confirmed Arrhythmia / SNOMED CT 4770186610 / Confirmed Former smoker / SNOMED CT 37562647 / Confirmed Acid reflux / SNOMED CT 079741438 / Confirmed Generalized arthritis / SNOMED CT 977982153 / Confirmed History of stomach ulcers / SNOMED CT 105112866 / Confirmed HTN (hypertension) / SNOMED CT 5715523685 / Confirmed Post-COVID syndrome resolved / SNOMED CT 1421216148 / Confirmed, Active Problems (9) Acid reflux Afib Arrhythmia Arthritis, hip Former smoker Generalized arthritis History of stomach ulcers HTN (hypertension) Post-COVID syndrome resolved Histories Family History: No family history items have been selected or recorded. Procedure history: Lumpectomy of left breast (3155854328). Comments: 11/22/2021 12:45 Steffanie Hernandez RN CA stage 1 (no chemo, had radiation) Arthroscopic repair of rotator cuff. (3463344676). Comments: 11/22/2021 12:48 Steffanie Hernandez RN left side History of total hysterectomy (0413251138). Comments: 11/22/2021 12:51 Steffanie Hernandez RN appendix removed at this time Heart (719620184). Comments: 11/22/2021 12:55 Steffanie Hernandez RN per patient cryo-ablation to nerve in the heart to stop the a-fib. Done in 09/29/[address]ñonez [facility] Laparoscopic cholecystectomy (11173097). Cataract (341189878). Comments: 11/22/2021 12:56 Steffanie Hernandez RN radha. Cataract removal Rotator cuff repair (525376229). Comments: 11/22/2021 12:47 Steffanie Hernandez RN right shoulder (1st surgery incision, 2nd arthroscopy, repair of the 1st surgery. Patient states fell and reinjured the rotator cuff) Eye (787215018). Comments: 11/22/2021 12:49 Steffanie Hernandez RN radha. eye lid lift repair Both feet (20353410). Comments: 11/22/2021 12:50 Steffanie Hernandez RN radha. feet removed bones to outer part of the foot Cardiac catheterization, left heart (040479706). Comments: 11/22/2021 12:58 Steffanie Hernandez RN per patient normal done [facility] Social History Electronic Cigarette/Vaping Assessment Electronic Cigarette Use: Never. Alcohol Assessment Use: Current. Wine, Liquor, 1-2 times per month Tobacco Assessment Former tobacco user Tobacco Use:. Comment: last used over 35 years ago Substance Abuse Assessment Substance use: Never. . Social & Psychosocial Habits Alcohol 11/22/2021 Alcohol Use: Current Type: Liquor, Wine Frequency: 1-2 times per month Substance Abuse 11/22/2021 Substance use: Never Tobacco 11/22/2021 Smoking tobacco use: Former tobacco user (more content not included)... [facility] MAGR PACU Recordon MAGR PACU Record MAGR PACU Record Summary Primary Physician: Melchor Rivera DO Finalized Date/Time: 12/16/21 14:27:03 Pt. Name: NGUEYN BURNS/Sex: 1945 FEMALE Med Rec #: [id number] Physician: Melchor Rivera DO Financial #: [id number] Pt. Type: O Room/Bed: 227/1 Admit/Disch: 12/16/21 06:48:01 - Institution: PACU Case Times MAGR Entry 1 In PACU I 12/16/21 13:01:00 Discharge from PACU 12/16/21 14:10:00 I Last Modified By: Steffanie Damian RN 12/16/21 14:26:54 Finalized By: Steffanie Damian RN Document Signatures Signed By: Steffanie Damian RN 12/16/21 14:27 [facility] MAGR Preoperative Recordon 0 12-16-2021 MAGR Preoperative Record MAGR Pre-Op Record Summary Primary Physician: Melchor Rivera DO Finalized Date/Time: 12/16/21 14:27:34 Pt. Name: NGUYEN BURNS/Sex: 1945 FEMALE Med Rec #: [id number] Physician: Melchor Rivera DO Financial #: [id number] Pt. Type: O Room/Bed: 227/1 Admit/Disch: 12/16/21 06:48:01 - Institution: Pre-Op Case Times MAGR Pre-Care Text: Patient will be optimally prepared for surgery. Patient is free from s/s of injury. Provide information to patient/family related to plan of care. Verify patient allergies. Confirm identity and verify consent before the operative or invasive procedure. Entry 1 Patient Arrival Time 12/16/21 07:12:00 Preop Departure 12/16/21 10:03:00 Last Modified By: Steffanie Damian RN 12/16/21 14:27:29 Post-Care Text: Patient is prepared mentally and physically and is ready for surgery. The patient remains free from s/s of injury. Patient/family express understanding of plan of care and participate in decisions affecting his or her perioperrative plan of care. Allergies documented appropriately. Patient identifiers and consent correct. General Comments: Reviewed for the nest 24 hours not to do anything that requires concentration. Denies chest pain,shortness of breath or illnessesss. Denies pacemaker/defib. Denies sleep apnea. Finalized By: Steffanie Damian RN Document Signatures Signed By: Steffanie Damian RN 12/16/21 14:27 [facility] Nutrition Noteon 12-16-2021 Nutrition Note Pt admitted for scheduled Rt total hip surgery. Diet order pending. Pre-admit labs reviewed, BS 121, GFR 40; no hx of DM; question pre-DM. Pre-op wt at 78.5kg, no recent hx of wts on file. No chewing/swallowing problems identified. Would rec'd Regular diet as tolerated. Pt is at high nutrition risk r/t age greater than 65y and surgery, however, no immediate nutrition concerns at this time. [facility] Operative Report - Surgeon/P beth 12-16-2021 Operative Report - Surgeon/Physician Preoperative diagnosis: Primary osteoarthritis right hip Postoperative diagnosis: Same Procedure: Right total hip arthroplasty Implants: DePuy Corail 11 SHAMEKA stem 48mm cup 48/32 liner neutral +5/32 head Surgeon: Lewis Rivera D.O. Anesthesia: General. Initially a spinal was attempted but there were not able to establish a spinal access and converted to a general Indications for surgery: Progression of symptoms of arthritis with failure of prolonged conservative treatment over time Estimated blood loss: 100 Complications: No complications Findings: Marked thinning of the articular surface and areas of exposed bone on the femoral head Procedure summary: Patient was brought to the operative suite she was given a general anesthetic and then positioned in the lateral decubitus position. The right hip was prepped and draped in usual fashion a timeout was taken. Incision was centered over the greater trochanter dissection was carried down through the fat to the fascia iván which was incised and under that I placed a Charnley retractor. The bursa was incised and the anterior one third of gluteus medius was detached from the greater trochanter. The capsule was incised and the hip was dislocated. There was some areas of raw bone noted on the hip and marked thinning of the articular surface. The femoral neck was cut with a reciprocating saw. The labrum was excised and the central soft tissues were excised. I medialized with a 44 mm reamer and then reamed with 46 and then 48. I then implanted a 48 gription cup and found it to be stable and secure. I further stabilized that with 2 6.5 mm acetabular screws and then I inserted an apex hole eliminating screw. Irrigated thoroughly and then I clicked into 32 mm liner I checked it for integrity and it was secure. My attention was turned back towards the femur the canal was opened with a box osteotome then a hand-held reamer and then broaching sequentially up to size 11. The cut was reviewed revised with a calcar planer and trial reductions were performed ultimately in the high offset neck produced the best soft tissue balance. I took the hip through range of motion even to extremes and there was no tendency towards dislocation. The trial components were removed and a size 11 collared extended offset prosthesis was impacted into place it was snug and secure. A +5 mm x 32 mm femoral head was impacted over a dry [place] taper and then the hip was reduced again 1 more time I checked it for stability taking it to extremes of range of motion and there was no tendency towards dislocation or subluxation. The soft tissues appear to be well balanced and the leg lengths appeared symmetric. I thoroughly irrigated verified hemostasis infiltrated a mixture of 30 cc of half percent bupivacaine and 10 cc of Exparel infiltrating the fascial planes and the subcutaneous tissues. I repaired the gluteus medius with a #5 Ethibond suture drilling 2 holes along the greater trochanter for attachment to bone and soft tissue. I then closed the fascia iván with interrupted 0 Vicryl suture the fat and subcutaneous layers were closed with 0 Vicryl. And then a running 3-0 subcuticular stitch. Tincture benzoin and Steri-Strips were applied. [Electronically Signed on: 12/16/2021 12:38 EDT] Melchor Rivera DO [Verified on: 12/16/2021 12:38 EDT] Melchor Rivera DO [facility] Progress Note - Nurseon 12-02 Progress Note - Nurse patient up in chair, oob using walker to bathroom to void, assisted back to chair, tolerating supper, iv patient, 1 plus palpable on right foot, right hip dressing dry, intact, will continue to monitor. [Electronically Signed on: 12/16/2021 20:31 EDT] Beverly Lam RN [Verified on: 12/16/2021 20:31 EDT] Beverly Lam RN [facility] XR Hip Complete Righton 12-02 XR Hip Complete Right EXAM: XR Hip Complete Right HISTORY: S/P hip replacement COMPARISON: None TECHNIQUE: AP and lateral views of the right hip were obtained with portable technique at 1:37 PM. FINDINGS: There is right hip prosthesis which appears unremarkably positioned. There is soft tissue swelling and air noted compatible with recent surgery. No definite acute fracture or dislocation. IMPRESSION: Right hip study demonstrates grossly unremarkable post arthroplasty changes as described. Follow-up as needed. Final Dictated by: Stuart Jhaveri MD Dictated DT/TM: 12/16/21 4:31 Signed (Electronic Signature): Stuart Jhaveri MD 12/16/21 4:37 pm Technologist: Barbara MCKEON [facility] Patient Handouton 12-14-2021 Patient Handout POST OPERATIVE TOTAL HIP DISCHARGE INTRUCTIONS Physical Therapy: -WBAT to operative hip -focus balance, transfers and steady gait. -use a walker -Do Not Do Active Hip Abduction Exercises On Either Hip -ok to do ROM on knee. SURGEON'S WRITTEN INSTRUCTIONS: Change dressing daily. When clean and dry for 2 days may leave open to air. Mary hose (compression stockings) for 6 weeks Physical therapy as prescribed May shower, no tub bath. Do not rub/scrub incision. Wash gently Take Aspirin 325mg daily to prevent blood clots, coated or uncoated per patient preference. WHAT YOU SHOULD KNOW AFTER YOUR OPERATION: If you need pain pills, start before the pain becomes intense. Pain pills are frequently less upsetting to your stomach if you take them with food such as crackers or bread. If you have excessive or persistent pain, swelling, bleeding, nausea, vomiting or any other problems, you should first call your surgeon for advice. If you are unable to contact your surgeon, seek help from the emergency room. FOR THE PREVENTION OF DVT AFTER LOWER EXTREMITY SURGERY What is a DVT? There is always the risk of DVT after lower extremity surgery. DVT, or deep vein thrombosis, is a blood blot in a major vein that may partially or completely block the flow of blood. The clot occurs in the legs or pelvis, in areas where blood flow is slow, or in an injured blood vessel. DVT can be life-threatening should pieces of the clot break away and travel to the lungs. This is called pulmonary embolism What are the symptoms of DVT? The area affected by the blood clot may become swollen and painful, and possibly turn red as the normal flow of blood is blocked. You may also develop edema, which is the build up of fluid in the skin tissues surrounding the clot. If the clot is somewhere other than your leg, there may be no physical signs of DVT. If the clot breaks away and travels to your lungs, you may experience shortness of breath and chest pain. If this occurs you should call your doctor immediately or go to the emergency room. How can I prevent DVT? You should keep active. Moving the ankle and foot and bending the knee as tolerated when you are in bed and walking as tolerated. Take medication, especially the Aspirin, as prescribed by your doctor. What should I do if I think I have a DVT? You should call your doctor or go to the emergency room any time you have a sudden and unusual shortness of breath that is not related to exercise, exertion or anxiety. If you have swelling with redness and pain in your leg, you should call your doctor immediately. If there is concern then a test called ?Venous Doppler? can be done to rule of a DVT. [facility] Coding Summaryon 12-13-2021 Coding Summary HTMLBase 64 CurmqhnyIDk8kVt+PGhl YWQ+DD1QVVIlH70nmSUy oK9GX8nNWF9OOQTXFEFT UI1WQJ2ieOB1SDrkQ3Jf biAv XxoowGIbTC44ZPf1WDU2 eXxmJPkhqC4leRUcA0c5 DtLpRB20hZ42VMyiEXAn EbV2TjZtuzyyoIAg H2xjFgZrzJDfDbg+PHRh YmxlIHdpZHRoPScxMDAl GcEzlYuyKY7jNg5xBNNg LWNvbGxhcHNlOiBj r2frFMKlTQceOD0xdMek I5RqcSN9LLAmy0m3Yb99 dHI+ZRAlKCQ2zHlhVNby r476PlPvl4agQDB5 mURvVSglISJ1S40wo5O1 HZLtEAIyVKQ5mWB5bB7j dTccmslfL8JnyYTrMbO0 GNK4jTKuwL1kdBrg mbajiU1gTlk+O36OCY6H DRSXLR1OJau0O2QcLbtl dHI+PX87UCBeSF08xRCo bDQag0iydCb9TnOm XCYtXFG4sFtiGGglk6Hz VSJpB75vvYJna5G9JCHs dYwwmQZaMwUfpJI8oJ3y BOdqwjbap6gpsjmq Qzmry9cmut11sT17S26b ZWspYVYiUQB9KTBsMBCw iVgjci5vsU2aLl0+IDxj u6lpn0uumFk2DjQt SXTprpJxgPslGHR2u2Wy Hk54D5AnoXaku9JdBsz3 ca40hASyx7O0vCI7RMuc OSKrgW4cHIauQiS2 RDEzIuZnzA80yWTtYPkj Wm1khFplsVxbKZ2cMWLx yrkrOCRzuR8vJFHheYDd zYlkTG7eYADvvaqg r790OwZqEIO1RTEofCCq E2CgvE0eJjZlMVMfJUSi O9JpwEFeQTxeE442LInh HtK2MPYxikOxO7Tu CRAfnJmgZcZ1f7Q0Ar7S q9IozeepEZE0RWnhYJA9 IpDhLnGkGkV4B1SgJln9 XMSczOkoPP8zO0Ht JRWaiaopckxxaHC1WXTg IHKyuI18nEKeLJzoXx2m m0J1s517YZSsUDSwxP90 Wg4qvTwzGRLnaBVO tE7hjxkka6ivecuaUkWq QEQsHHl6AUz7NCNldYzv CnRaKEE1BcH4WYI6fQLp qU8siOosvztnfH6c Oyc+W58vnW6tGYP1TQQ2 olxeFLLoeiOnTL77MM54 H9CsCswnfDMyhGV+PGRp twVqxRrqJN9nVoOi q9twg3CzDRcoU2QyMZXc BIcqUpf3BHSmXIM8kOI5 iK1lHJGqDYyjl7U0vEG0 G7GtmiYvvv1wh5ku VXKnHFljQ36dzEFah2J9 FTGydDH7BEEgwZumMpKj oP72Rwu+PPSzzMzny9Jb Twyzp4oit8plgXk7 IjMwJSIgdmFsaWduPSJ0 i0ApPg71J08xCXsbIJCd BJEzPEQlAMNutXrknv9z uM7qGz2+PGNvbCB3 nQN3nI3xXOYzUeN2IAgg D209WnPzcSBtWgfuz9kz t3jhhFw0HdInXIEnssTl mPozTVQ6s0ZxFp90 F03hTHtiXIXoNNAeOVZl DWPaiEijgr1niS4bOm9+ XX5dj6lbnw82dC81wCZ+ MHFnMOR5kGmgSBwg ERRjnI5kLCkeSzN7VFAn AoPorY38fVPjHLanOk9k iQulhEsoZG7bLFBsoqdr k903HxZzp2yuLXGk kSNcEGugRPV5V43bm2J3 SEGeOQFhKFV2eSH2qM6r bGlnbjogbGVmdDsgdmVy bWqaLUygKCzlB334 IHRvcDsnPlBhdGllbnQg NmSkYLh2F9KqRmw2KHYt lXjuUU3ifOSbGRhmTg0i dLkjsGdgEQ2fUPSa yatdr093ZhTcr1ssCMOy mCLaSKguCBT4P38ci6B5 DKPiOSWqHNC4dJT4zM0a bGlnbjogbGVmdDsg onRasVtrVFbwFKjtA054 IHRvcDsnPkJpcnRoIERh dVU4CW39HO05jDShd0B5 bVI3L6FbQNCvmzar ijhgcCZ8IADxGYTueJ64 Tm1qnLenSs3dRFJpFXU1 YZRfxVEhQ4CllJ7cJhHl CCXdDTVfN3LrcIQg YXiwI749NQjdPhM7GYUd mhXrU3RnYEUcaUuiKzV6 v0O8Nd5JP6S9OW78OK28 hNXzx8Q6sWL1P8Nj EHHecynhpectsUO3NJRk GTYjrM57Md0xlYltCv4x QFHxALN2DQOgoAUjM6Yc mG3tBiGeQAShHLXw V9ZxpNAfUQweU175VXsr NmE7QONyxlAiT8LkTHZt qHbpYgC1b6B6Pq9RAQr2 WL48KK82hFAaj3Y7 eTO7C7FhHTLandpfqbmu bZN3JYXnGOGbkH15Vv2c xPihVv7hTRSeYYO9GSMf zUHaA6YvrX7aLnLs TMBvTVJnQ0FznCPcUUqb A905LYueUxJ0AEXtvrDq T8MqCEEfoOqzFiO9r3D0 Qy5ZHRPeKB59BTI6 rID7AO09BV91U7YyZcbr dGFibGU+PHRhYmxlIHdp ZHRoPScxMDAlJyBzdHls XQ5cAr8aVWHtGDBp iPagzFHpUnVag0nmRGUp AVckWW6lvHdyC5JjzBF1 MEEsi2j6Kx77B12iX3Qo dXA+AJPzdTF7iRC9 jI4yZuCrKtE9VLvzP220 NvZbyVRyAviwz6ofg0qe qTg7DqF9LLNsplVwqTkb SFQ9v1PxHj52I18y IHdpZHRoPSIxNSUiIHZh zWkewo7fgY5pBc3+PGNv uPN8yES0sV0qPxNsSlL8 DGahU375HjBncZVg Cpvac3eci1ecsPa0InBn SRSzliTqsIefQHT5f7No Rg58R8GeaUqnm0HqClu2 xo72pRPyg7A3iDK0 B8JmTGMkziraqXInmFeh OA4rOBRpotztMKIfyR9m FHKkQ0n7AlFrAkS4KOhc O1FbxdZ4BIRcuNQs PIilIUH6Q55io2J0HSLl YQXvMCZ7xYR4nG0csBcr bjogbGVmdDsgdmVydGlj WBhpZCazS122ZCVk jXlhIHWbgJ9pMCXdlAZj tWxsFT4rIFYmgyciLjER QUlMRVksIFRPTllBIEdB CIG4P8PsYgl6KFKx hWrsBY3oaXTiXCftXr2b gRgddJbmRU0eEOYnabje IVVpiH3kNUCsxAWsbCte HB6bDKYcunebs463 JgXoPQB3JEBekIBaF8Vv vV9vIuChRKZlACVqR3At wBCjEKhgS441TRtxSmR2 RWIlcuYoS9PdDYKq wOljYhL2n3G3Hd3dPi0k Ig5pCCR3BZ47TP13tNFy f6N3oUR7R2NoYZXzdaab jsfqpLS4BUUoXNOq tN22oFXsWLlbGe7gq2D6 p471FDAtRICzxG74Fw0w jLquUJZmqWRYeL1rvxas a2vahyzcGgCxRNLf QVh4TMl5FDLrwBxyVgXq RXN3HwH5FBO5tWQazG3f cXjuaykelU2gZes+NzQg QPTqvhL2R5SmNvf8 DGPhdQonMK5awTAaPZcc Qq1bwRkdzAswQQ3jKBJu bvopDGKxwG7fRQXhlDCw cVffEX6jJVCrrivn f360WpZlTES2NNGepKKn N1KueQ5nWhJmGRIzHZSj Q1BvrYWlUGdaC018MPxz FtR4ZAHuxhJjS2Ml XBVpkHqmFuR8k2K4Vw8Z ED7CPSC8W8WvNbg1TNDl cRwkTP5kcKYaAPtmMt1s eWchuJyzYE4hZFMo vczfPSMghL7pCCFvqGVg pJkhJW1pEIEqmyryb284 QaIxKQV9BUKvzBCqH2Qx qK1hAlQyIWXhKNQf J6OgeQCbMOleK533PEjh UuN3FYJmmuIiN5PtONZs yAgjIcJ8n6J5Dl2QPUhf dGQ+WC90gl05J5Np HqguFlo4FROhWZT9aUP4 mU6wKHSkKRamy3U4gUT8 R8CmcmSkaq3qp3nyJWZs JZiuL83gfGBfq2T7 TDRgjIO9JJOpuFpuEmDd iK05Ppt+TCRfbNcyw5Qq Auwvt5ofz5yfvWe3TzDd JSIgdmFsaWduPSJ0 x9UlBy15G81kNEbkCJUt TGVyLAJdMQXzlJrall5p xB8oQm7+MGPerHO9sOM1 jY6hViUaVsB6STon F879UmIghJRoYgvoq6lo a7dhmTs8ItGvXQZsmmXb hNbdIGU9h2UmGu66A7Bi gSkod5IyNxc7bm61 fTEma2A8hIX9O8FpCLYy yycofEItbGbiZE9cAICa bpvcGUIrkL9fFLHhR2k1 JgNzFmA8KFhfE4Nd atR2JSNnuSXaMJMjeMEJ uH9bhwsyt0cikkbyKtMi ZESaXKm7ZJl4FUIahOzy LgToNYG3XtU7JBW7 wMYhkO7czYrgkylzmP7o Oyc+XIw0j5mvxLSbZB5j vGL2CV26PT49aVPgz4T5 iEJ1I9EpJPHiieyb mzvnfGX4XEXlJHQvcR20 Ej0coLlrYo1aYPLiKKP4 UUNdzKPwU6BlxI4uZxCp TSVrRFLlN7RzhUQh BWkuV563FPofPcF8RWQy xgOsA7KtJLJnqVcxTkG6 n9R0Hf2KQF67EU82YV91 yPGxp0V4fVX1K5Mq TAUvvvupskjbmIS4CWJu MJTtwV48Kh5pfUqqVa0x DZHxEZZ2GOEysFDwB2Kr zS0qOaEfBZZgGOMy A4KocMTgVMlbA048DSyj SoF0DETuzlDsP6YhXYLz pEszEiB4i1V4Aj1QDt18 UI53MK26xHHqw1B2 gUT8U4TqHCIgvgjwevrn aBT8UQFeRLMilM05Zm5b cZqoPp7kEWDbOSR1VJIx sHGlB0CqnP9hCaLg GRTkOJRfM2NyrPDeEPrd S480HYxxIaY4XSKpdoJy Z8EqURVdmEptVhS9c3S5 Dg4PSFsviiz3D6Tg PjwvdHI+CR38IOPcPB29 aLBmqCTlu3uckDv7RkYi SBMsKJB0cYsmIBhqi2Xu IGNuG61gaOBgn6D0 IGN (more content not included)... [facility] Progress Note - Nurseon 12-02 Progress Note - Nurse Pre-op phone call made to pt. Pt states understanding of arrival time of 0700 on Thursday12/16/21. Pt states understanding of pre-op instructions and is without further questions/concerns at this time. [Electronically Signed on: 12/13/2021 11:21 EDT] Lilia Quiñonez RN [Verified on: 12/13/2021 11:21 EDT] Lilia Quiñonez RN [facility] 2018 Novel Coronavirus (CoVI D-19), CHRISTOPHER LCon 12-12-2021 SARS-CoV-2 (COVID-19) RNA CHRISTOPHER+probe Ql (Unsp spec) Not detected Invalid Interpretation Code Not Detected [facility] Comment on above: Order Comment: [id number] Result Comment: This nucleic acid amplification test was developed and its performance characteristics determined by [employer]. Nucleic acid amplification tests include RT- PCR and TMA. This test has not been FDA cleared or approved. This test has been authorized by FDA under an Emergency Use Authorization (EUA). This test is only authorized for the duration of time the declaration that circumstances exist justifying the authorization of the emergency use of in vitro diagnostic tests for detection of SARS-CoV-2 virus and/or diagnosis of COVID-19 infection under section 564(b)(1) of the Act, 21 U.S.C. 360bbb-3(b) (1), unless the authorization is terminated or revoked sooner. When diagnostic testing is negative, the possibility of a false negative result should be considered in the context of a patient's recent exposures and the presence of clinical signs and symptoms consistent with COVID-19. An individual without symptoms of COVID-19 and who is not shedding SARS-CoV-2 virus would expect to have a negative (not detected) result in this assay. Performed At: [address] [id number] Hansa Miller PhD Ph:[phone] Performed By: #### 6 [id number] #### [facility] (DEFAULT) [address] [place] [address] Provider Orderson 11-25-2021 Provider Orders [id number] Normal [facility] C Urineon 11-24-2021 C Urine Urine Culture ordered as a result of parameters set on specific urine dip and urine microsopic results. Mixed skin, or urogenital glo. Clinically insignificant [facility] Comment on above: Performed By: #### 6 [id number] ####[facility] (DEFAULT)[address] [place] [address] C MRSA Screenon 11-23-2021 C MRSA Screen Negative [facility] Comment on above: Performed By: #### 1 [id number] ####[facility] (DEFAULT)[address] [place] [address] .Auto Diff 1on 11-22-2021 Auto [place] % 10 % Normal -12 [facility] Comment on above: Performed By: #### 1 [id number], [id number] ####[facility] (DEFAULT)[address] [place] [address]66 Baso Abs# 0.1 x10 Normal 0.0-0.2 [facility] Comment on above: Performed By: #### 1 [id number], [id number], [id number] ####[facility] (DEFAULT)[address] [place] [address] 87009 Basophils/100 WBC (Bld) 1.0 % Normal 0.2-2.0 [facility] Comment on above: Performed By: #### 1 [id number], [id number], [id number] ####[facility] (DEFAULT)[address] [place] [address]019 Eos Abs# 0.5 x10 High 0.0-0.4 [facility] Comment on above: Performed By: #### 1 [id number], [id number], [id number] ####[facility] (DEFAULT)[address] [place] [address] 05196 Eosinophils/100 WBC (Bld) 6.7 % High 0.9-4.0 [facility] Comment on above: Performed By: #### 1 [id number], [id number], [id number] ####[facility] (DEFAULT)[address] [place] [address] 23745 Lymph Abs# 2.8 x10 Normal 1.3-2.9 [facility] Comment on above: Performed By: #### 1 [id number], [id number], [id number] ####[facility] (DEFAULT)[address] [place] [address] 55510 Lymphocytes/100 WBC (Bld) 41 % Normal 14-48 [facility] Comment on above: Performed By: #### 1 [id number], [id number], [id number] ####[facility] (DEFAULT)[address] [place] [address]97 [place] Abs# 0.7 x10 Normal 0.0-0.8 [facility] Comment on above: Performed By: #### 1 [id number], [id number], [id number] ####[facility] (DEFAULT)[address] [place] [address] 92048 Neut Abs# 2.9 x10 Normal 1.5-9.2 [facility] Comment on above: Performed By: #### 1 [id number], [id number], [id number] ####[facility] (DEFAULT)[address] [place] [address] Neutrophils/100 WBC (Bld) 42 % Low 44-88 [facility] Comment on above: Performed By: #### 1 [id number], [id number], [id number] ####[facility] (DEFAULT)[address] [place] [address] BMP Standardon 11-22-2021 eGFR Non AA 40 mL/min/1.73m2 Invalid Interpretation Code [facility] Comment on above: Performed By: #### 1 [id number], [id number], [id number] ####[facility] (DEFAULT)[address] [place] [address] eGFR AA 49 mL/min/1.73m2 Invalid Interpretation Code [facility] Comment on above: Result Comment: [employer] Engineer juan diego Kidney disease could be indicated at eGFRs of less than 60 ml/min/1.73m2. Kidney Failure is indicated at less than 15 ml/min/1.73m2 Performed By: #### 1 [id number], [id number], [id number] ####[facility] (DEFAULT)[address] [place] [address] 14635 Anion gap [Moles/Vol] 13.0 mmol/L Normal 5.0-19.0 [facility] Comment on above: Performed By: #### 1 [id number], [id number], [id number] ####[facility] (DEFAULT)[address] [place] [address] 33385 Calcium [Mass/Vol] 10.2 mg/dL Normal 8.9-10.3 [facility] Comment on above: Performed By: #### 1 [id number], [id number], [id number] ####[facility] (DEFAULT)[address] [place] [address]382 Chloride [Moles/Vol] 100 mmol/L Low 101-111 [facility] Comment on above: Performed By: #### 1 [id number], [id number], [id number] ####[facility] (DEFAULT)[address] [place] [address] 78924 CO2 [Moles/Vol] 30 mmol/L Normal 21-32 [facility] Comment on above: Performed By: #### 1 [id number], [id number], [id number] ####[facility] (DEFAULT)[address] [place] [address] 70663 Creatinine [Mass/Vol] 1.29 mg/dL Normal 0.60-1.30 [facility] Comment on above: Performed By: #### 1 [id number], [id number], [id number] ####[facility] (DEFAULT)[address] [place] [address] 11084 Glucose [Mass/Vol] 121.0 mg/dL High 74.0-118.0 [facility] Comment on above: Performed By: #### 1 [id number], [id number], [id number] ####[facility] (DEFAULT)[address] [place] [address] 55772 Osmolality 285 mOsm/L Invalid Interpretation Code [facility] Comment on above: Performed By: #### 1 [id number], [id number], [id number] ####[facility] (DEFAULT)[address] [place] [address] 82998 Potassium [Moles/Vol] 3.7 mmol/L Normal 3.6-5.1 [facility] Comment on above: Performed By: #### 1 [id number], [id number], [id number] ####[facility] (DEFAULT)[address] [place] [address] 64135 Sodium [Moles/Vol] 139.0 mmol/L Normal 136.0-144.0 [facility] Comment on above: Performed By: #### 1 [id number], [id number], [id number] ####[facility] (DEFAULT)[address] [place] [address] 45000 Urea nitrogen [Mass/Vol] 31 mg/dL High 8-26 [facility] Comment on above: Performed By: #### 1 [id number], [id number], [id number] ####[facility] (DEFAULT)[address] [place] [address] Urea nitrogen/Creatinin e [Mass ratio] 24.0 mg/mg High 4.6-16.2 [facility] Comment on above: Performed By: #### 1 [id number], [id number], [id number] ####[facility] (DEFAULT)[address] [place] [address] CBC w/ Auto Diffon 2 Erythrocyte distribution width (RBC) [Ratio] 15.6 % High 11.5-15.0 [facility] Comment on above: Performed By: #### 1 [id number], [id number], [id number] ####[facility] (DEFAULT)[address] [place] [address] Hematocrit (Bld) [Volume fraction] 40.9 % High 33.7-40.4 [facility] Comment on above: Performed By: #### 1 [id number], [id number], [id number] ####[facility] (DEFAULT)[address] [place] [address] Hemoglobin (Bld) [Mass/Vol] 13.2 g/dL Normal 11.3-15.9 [facility] Comment on above: Performed By: #### 1 [id number], [id number], [id number] ####[facility] (DEFAULT)[address] [place] [address] Instr WBC 7.0 x10 Invalid Interpretation Code [facility] Comment on above: Performed By: #### 1 [id number], [id number], [id number] ####[facility] (DEFAULT)[address] [place] [address] Man Diff? Auto Normal [facility] Comment on above: Performed By: #### 1 [id number], [id number], [id number] ####[facility] (DEFAULT)[address] [place] [address] MCH (RBC) [Entitic mass] 30 pg Normal 24-34 [facility] Comment on above: Performed By: #### 1 [id number], [id number], [id number] ####[facility] (DEFAULT)[address] [place] [address] MCHC (RBC) [Mass/Vol] 32 g/dL Normal 26-37 [facility] Comment on above: Performed By: #### 1 [id number], [id number], [id number] ####[facility] (DEFAULT)[address] [place] [address]2593 MCV (RBC) [Entitic vol] 92 fL Normal 81-100 [facility] Comment on above: Performed By: #### 1 [id number], [id number] ####[facility] (DEFAULT)[address] [place] [address] Platelet 303 x10 Normal 138-427 [facility] Comment on above: Performed By: #### 1 [id number], [id number], [id number] ####[facility] (DEFAULT)[address] [place] [address] Platelet mean volume (Bld) [Entitic vol] 8.8 fL Normal 6.3-10.2 [facility] Comment on above: Performed By: #### 1 [id number], [id number] ####[facility] (DEFAULT)[address] [place] [address] RBC 4.43 x10 Normal 3.70-5.30 [facility] Comment on above: Performed By: #### 1 [id number], [id number], [id number] ####[facility] (DEFAULT)[address] [place] [address] WBC 7.0 x10 Normal 3.5-10.5 [facility] Comment on above: Performed By: #### 1 [id number], [id number], [id number] ####[facility] (DEFAULT)[address] [place] [address] UA Srbyi3em 11-22-2021 UA Amorph. 1+ Normal [facility] Comment on above: Order Comment: Urina lysis Microscopic order added on by Discern Expert Rules system. Performed By: #### 6 [id number], [id number], [id number] ####[facility] (DEFAULT)[address] [place] [address] UA Bacteria 1+ [facility] Comment on above: Order Comment: Urina lysis Microscopic order added on by Discern Expert Rules system. Performed By: #### 6 [id number], [id number], [id number] ####[facility] (DEFAULT)[address] [place] [address] UA Hyal Cast 0-5 [facility] Comment on above: Order Comment: Urina lysis Microscopic order added on by Discern Expert Rules system. Performed By: #### 6 [id number], [id number], [id number] ####[facility] (DEFAULT)[address] [place] [address] UA Mucous 1+ [facility] Comment on above: Order Comment: Urina lysis Microscopic order added on by Discern Expert Rules system. Performed By: #### 6 [id number], [id number], [id number] ####[facility] (DEFAULT)[address] [place] [address] UA RBC 5-10 [facility] Comment on above: Order Comment: Urina lysis Microscopic order added on by Discern Expert Rules system. Performed By: #### 6 [id number], [id number], [id number] ####[facility] (DEFAULT)[address] [place] [address] UA Squam Epi Few [facility] Comment on above: Order Comment: Urina lysis Microscopic order added on by Discern Expert Rules system. Performed By: #### 6 [id number], [id number], [id number] ####[facility] (DEFAULT)[address] [place] [address] UA WBC 0-2 [facility] Comment on above: Order Comment: Urina lysis Microscopic order added on by Discern Expert Rules system. Performed By: #### 6 [id number], [id number], [id number] ####[facility] (DEFAULT)[address] [place] [address] UA w Culture if Ind Standard on 11-22-2021 Breakpoint UA [facility] Comment on above: Performed By: #### 6 [id number], [id number], [id number] ####[facility] (DEFAULT)[address] [place] [address] Color (U) Yellow Normal [facility] Comment on above: Performed By: #### 6 [id number], [id number], [id number] ####[facility] (DEFAULT)[address] [place] [address] Culture? Indicated Invalid Interpretation Code [facility] Comment on above: Result Comment: Resu lt created by rule GL_MAGR_ADD_UA_CULT Result created by rule GL_MAGR_ADD_UA_CULT Result created by rule GL_MAGR_ADD_UA_CULT1 Result created by rule GL_MAGR_ADD_UA_CULT Performed By: #### 6 [id number], [id number], [id number] ####[facility] (DEFAULT)[address] [place] [address] Glucose (U) [Mass/Vol] Negative [facility] Comment on above: Performed By: #### 6 [id number], [id number], [id number] ####[facility] (DEFAULT)[address] [place] [address] Ketones Ql (U) Negative [facility] Comment on above: Performed By: #### 6 778190, [id number], [id number] ####[facility] (DEFAULT)[address] [place] [address] Micro? Indicated Invalid Interpretation Code [facility] Comment on above: Result Comment: Resu lt created by rule GL_MAGR_ADD_UA_MICRO Performed By: #### 6 [id number], [id number], [id number] ####[facility] (DEFAULT)[address] [place] [address] UA Bilirubin Negative Normal [facility] Comment on above: Performed By: #### 6 [id number], [id number], [id number] ####[facility] (DEFAULT)[address] [place] [address] UA Blood TRACE Abnormal NEGATIVE [facility] Comment on above: Performed By: #### 6 660363, [id number], [id number] ####[facility] (DEFAULT)[address] [place] [address] UA Clarity CLEAR Normal CLEAR [facility] Comment on above: Performed By: #### 6 [id number], [id number], [id number] ####[facility] (DEFAULT)[address] [place] [address] UA Leuk Est Negative Normal NEGATIVE [facility] Comment on above: Performed By: #### 6 [id number], [id number], [id number] ####[facility] (DEFAULT)[address] [place] [address] UA Nitrite Negative Normal NEGATIVE [facility] Comment on above: Performed By: #### 6 [id number], [id number], [id number] ####[facility] (DEFAULT)[address] [place] [address] UA pH 5.5 Normal 5-8 [facility] Comment on above: Performed By: #### 6 838141, [id number], [id number] ####[facility] (DEFAULT)[address] [place] [address] UA Protein Negative Normal NEGATIVE [facility] Comment on above: Performed By: #### 6 373417, [id number], [id number] ####[facility] (DEFAULT)[address] [place] [address] UA Spec Grav 1.025 Normal 1.001-1.035 [facility] Comment on above: Performed By: #### 6 [id number], [id number], [id number] ####[facility] (DEFAULT)[address] [place] [address] UA Urobilinogen 0.2 mg/dL Normal 0.2-1.0 [facility] Comment on above: Performed By: #### 6 784866, [id number], [id number] ####[facility] (DEFAULT)[address] [place] [address] Urine Source Clean Catch Normal [facility] Comment on above: Performed By: #### 6 996900, [id number], [id number] ####[facility] (DEFAULT)[address] [place] [address] Shane 10-03-2021 CNPN Telephone ([facility]) NGUYEN BURNS ([id number]) 1945 F Date Time Provider Department 10/03/21 ANDREW CHOI During your visit today, we recorded the following information about you: Allergies As of Date: 10/03/2021 Noted Allergy Reaction BACLOFEN 03/19/2017 16 - Unknown CODEINE 03/19/2017 16 - Unknown HYDROCODONE-ACETAMIN OPHEN 03/19/2017 16 - Unknown LEVOFLOXACIN 03/19/2017 16 - Unknown MORPHINE 12/03/2015 4 - Hives OXYCODONE 12/03/2015 4 - Hives PENICILLINS 12/03/2015 4 - Hives Date Reviewed: 03/16/2019 Reviewed by: Divine Self - Fully Assessed Reason for Visit: Lab Orders [1688] Primary Visit Diagnosis:Malignant neoplasm of upper-outer quadrant of left breast in female, estrogen receptor positive (HCC) [C50.412, Z17.0] Order(s):CBC + DIFF [SQCBCDIF] Order #: [id number] FUTURE COMP METABOLIC PANEL [SQCMP] Order #: [id number] FUTURE CA 27.29 BLOOD [[id number]] Order #: [id number] FUTURE Prescriptions as of 10/03/2021 - lisinopril (ZESTRIL, PRINIVIL) 20 mg tablet - XIIDRA 5 % dpet - cyclobenzaprine (FLEXERIL) 10 mg tablet Take 10 mg by mouth twice daily as needed. - temazepam (RESTORIL) 30 mg cap - losartan-hydrochloro thiazide (HYZAAR) 100-25 mg per tablet - meperidine (DEMEROL) 50 mg tablet Take 25 mg by mouth as needed. - flecainide (TAMBOCOR) 100 mg tablet Take 100 mg by mouth. - apixaban (ELIQUIS) 5 mg tab(s) Take 5 mg by mouth twice daily. - atenolol (TENORMIN) 50 mg tablet 25 mg twice daily. - LORazepam (ATIVAN) 1 mg tablet Take 1 mg by mouth. - SUMAtriptan (IMITREX) 25 mg tablet Take 25 mg by mouth as needed. - Omeprazole (PRILOSEC) 40 mg capsule Take 20 mg by mouth twice daily. - potassium chloride (KLOR-CON 10) 10 mEq tablet Take 10 mEq by mouth once daily. 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 09-26-2021 CNPN Telephone ([facility]) NGUYEN BURNS ([id number]) 1945 F Date Time Provider Department 09/26/21 ELTON DOMINGUEZ During your visit today, we recorded the following information about you: Elton Dominguez RN 09/26/2021 2:36 PM Signed Pt scheduled for diagnostic mamm tomorrow @ [facility]. Hospital calls to ask if this could be changed to a screening mammogram since the pt is greater than 2 years from diagnosis? RICARDO Jean-Baptiste MD 09/26/2021 5:14 PM Addendum Okay to change to screening mammogram. Order signed. Thanks, ASIYA Dominguez RN 09/27/2021 8:12 AM Signed Order faxed to [facility] @ [phone]. Elton Dominguez RN Allergies As of Date: 09/26/2021 Noted Allergy Reaction BACLOFEN 03/19/2017 16 - Unknown CODEINE 03/19/2017 16 - Unknown HYDROCODONE-ACETAMIN OPHEN 03/19/2017 16 - Unknown LEVOFLOXACIN 03/19/2017 16 - Unknown MORPHINE 12/03/2015 4 - Hives OXYCODONE 12/03/2015 4 - Hives PENICILLINS 12/03/2015 4 - Hives Date Reviewed: 03/16/2019 Reviewed by: Divine Self - Fully Assessed Reason for Visit: Radiology Mammogram [1485] Primary Visit Diagnosis:Encounter for screening mammogram for malignant neoplasm of breast [Z12.31] Order(s):[facility] [[id number]] Order #: [id number] FUTURE Prescriptions as of 09/27/2021 - lisinopril (ZESTRIL, PRINIVIL) 20 mg tablet - XIIDRA 5 % dpet - cyclobenzaprine (FLEXERIL) 10 mg tablet Take 10 mg by mouth twice daily as needed. - temazepam (RESTORIL) 30 mg cap - losartan-hydrochloro thiazide (HYZAAR) 100-25 mg per tablet - meperidine (DEMEROL) 50 mg tablet Take 25 mg by mouth as needed. - flecainide (TAMBOCOR) 100 mg tablet Take 100 mg by mouth. - apixaban (ELIQUIS) 5 mg tab(s) Take 5 mg by mouth twice daily. - atenolol (TENORMIN) 50 mg tablet 25 mg twice daily. - LORazepam (ATIVAN) 1 mg tablet Take 1 mg by mouth. - SUMAtriptan (IMITREX) 25 mg tablet Take 25 mg by mouth as needed. - Omeprazole (PRILOSEC) 40 mg capsule Take 20 mg by mouth twice daily. - potassium chloride (KLOR-CON 10) 10 mEq tablet Take 10 mEq by mouth once daily. 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 Right hip pain. COMPARISON: Radiographs 07/16/2021 TECHNIQUE: Multiplanar multisequence MRI was performed of the hip without contrast. FINDINGS: No acute fracture or evidence of stress reaction of the pelvis or visualized portion of either femur. No femoral head avascular necrosis. Low-grade partial stripping of the right common hamstring tendon at the ischial tuberosity. The iliopsoas and rectus femoris tendons are intact. Right gluteus minimus tendon is intact. Low-grade partial stripping of right gluteus medius tendon at the greater trochanter with mild adjacent soft tissue edema. No trochanteric bursal fluid. External rotators are intact. Adductor musculature is intact. Sciatic nerve appears within normal limits. Anterior superior labral degeneration without definitive displaced tear. 9 mm full-thickness cartilage defect of the superior acetabulum with tiny subcortical cyst formation and mild subcortical bone marrow edema. Small right hip joint effusion. Degenerative changes are identified of the lower lumbar spine but are incompletely evaluated on this examination. Evaluation of the intrapelvic structures demonstrates no acute abnormality. IMPRESSION: Mild right hip osteoarthritis. Low-grade partial stripping of right gluteus medius tendon at the greater trochanter with mild adjacent soft tissue edema. Report reported and signed by Ramon Ambrocio on 09/11/2021 1545 Normal [facility] Swing Manager Consult Reporton 03-14-2020 Consult Report [facility] CONSULTATION NGUYEN BURNS [address]ET [id number] [id number] OBSV ANABEL WATKINS MD [id number] REFERRING PHYSICIAN: CONSULTING PHYSICIAN: Renetta Almanzar MD DATE OF CONSULTATION: 03/11/2020 REASON: A near syncopal event in a 74-year-old female, with a history of atrial fibrillation, previous cardiac ablation, who was the time of evaluation noted to have a positive test for COVID. HISTORY OF PRESENT ILLNESS: Mrs. Burns is a very pleasant, alert and oriented -pdju-vtl female who was brought into the emergency room by ambulance because of a near syncopal event. This happened in a restaurant. She has a history of atrial fibrillation, previous of cardiac ablation. She is presently on Eliquis. She also carries a diagnosis of hypertension. The episode of the presyncopal event without any loss of consciousness happened after she had a diarrheal bowel movement. The patient did not fall. She had no nausea or vomiting. No fever. No chills. No chest pain. No palpitations. No cough. No shortness of breath. Initial evaluation showed a temperature of 36.4, pulse 59, respirations 19, blood pressure 101/43. Workup includes electrolytes normal. BUN 32, creatinine 1.2. Liver function tests normal. D-dimer 821. White count 8.3, hemoglobin 11.7, platelet count 150,000. She had CT abdomen and pelvis. This shows evidence of cholecystectomy. Normal common bile ducts. Patchy airspace opacities in both lung bases. Chest x-ray was unremarkable. At the time of my evaluation this morning, she is alert, oriented x4. She has occasional cough, but it is not productive. She is not short of breath. She has no wheezing. No fever and no chills. No sore throat. No earache. She is and lives with her . Her has no symptoms of COVID. The patient does not know anybody who had COVID. PAST MEDICAL HISTORY: As above. PERSONAL/FAMILY/SOCI AL HISTORY: Patient is . She is a nonsmoker. No alcohol. No family history for premature or coronary artery disease. ALLERGIES: CODEINE, LEVAQUIN, OPIOID-LIKE ANALGESICS. MEDICATIONS: Are reviewed, include Eliquis 5 mg b.i.d., atenolol 50 mg daily, Zithromax 500 mg daily, Decadron 6 mg daily, HydroDIURIL 25 mg daily, Zestril 20 mg daily, Protonix 40 mg daily, potassium chloride 10 mEq daily. REVIEW OF SYSTEMS: All other systems were reviewed and are negative except for those mentioned under HPI. PHYSICAL EXAM: General: She is awake. Alert. Pleasant, cooperative. Eyes: No pallor. No icterus. Ears, Nose, Throat, and Mouth: External inspection of ears and nose normal. No oral lesions. Neck: Symmetrical. No JVD. Respiratory System: Nonlabored respirations. Good air entry bilaterally without any wheezing or rhonchi. Cardiovascular System: Normal 1st and 2nd sounds. No gallop. Abdomen: Soft. Hypoactive bowel sounds. Musculoskeletal: No edema. Skin: No ulcers, no subcutaneous nodules. Neurologic: Alert and oriented x4 without any focal neuro deficit. Psychiatric: Judgment, insight, and memory normal. IMPRESSION: 1. Coronavirus disease 2019 positive without any symptoms. 2. A presyncopal event in a background of atrial fibrillation, previous cardiac ablation. 3. Elevated D-dimer. Patient is already on Eliquis. 4. Cholecystectomy. PLAN: 1. Medications reviewed. 2. Patient will be discharged on Eliquis and Decadron. 3. Follow up with primary care physician. 4. Plan of care discussed with patient including quarantine. Many thanks. RENETTA ALMANZAR MD BD/MedBoone /[id number] Normal [facility] BASICMETAon 03-11-2020 GFR AA >[address] [facility] Comment on above: Result Comment: Afri can Polish GFR Calc Medical judgement is necessary to interpret GFR. The calculated GFR may not accurately reflect renal status in patients >70 years, women, acutely ill hospitalized patients and patients with acute renal failure or known renal disease. The MDRD GFR formula is valid only for adults greater than 18 years of age. Note: Creatinine clearance (not GFR) should be used for drug dosing. Performed By: #### 1 48970, 736578, 030316 ####[facility] [address] [place] [id number] Medical Director: Fahad Cast MD GFR/1.73 sq M predicted among non-blacks MDRD (S/P/Bld) [Vol rate/Area] 56 mL/min/1.73m? Normal [facility] Comment on above: Result Comment: Non GFR Calc Medical judgement is necessary to interpret GFR. The calculated GFR may not accurately reflect renal status in patients >70 years, women, acutely ill hospitalized patients and patients with acute renal failure or known renal disease. The MDRD GFR formula is valid only for adults greater than 18 years of age. Note: Creatinine clearance (not GFR) should be used for drug dosing. Performed By: #### 1 07336, 103567, 727924 ####[facility] [address] [place] [address] Medical Director: Fahad Cast MD Osmolality [Osmolality] 291 mOsm/kg Normal 275-295 [facility] Comment on above: Performed By: #### 1 09487, 803467, 515628 ####[facility] [address] [place] [address] Medical Director: Fahad Cast MD Urea nitrogen/Creatinin e [Mass ratio] 24.5 mg/mg Normal [facility] Comment on above: Performed By: #### 1 63379, 086459, 357425 ####[facility] [address] [place] [address] Medical Director: Fahad Cast MD Calcium [Mass/Vol] 9.3 mg/dL Normal 8.5-10.5 [facility] Comment on above: Performed By: #### 1 16357, 743757, 188761 ####[facility] [address] [place] [address] Medical Director: Fahad Cast MD Chloride [Moles/Vol] 108 mmol/L Normal 100-109 [facility] Comment on above: Performed By: #### 1 35739, 833943, 344605 ####[facility] [address] [place] [address] Medical Director: Fahad Cast MD CO2, venous 28.9 mmol/L Normal 21.0-32.0 [facility] Comment on above: Performed By: #### 1 28098, 526142, 158950 ####[facility] [address] [place] [address] Medical Director: Fahad Cast MD Creatinine [Mass/Vol] 1.0 mg/dL Normal 0.6-1.0 [facility] Comment on above: Performed By: #### 1 98333, 138570, 107636 ####[facility] [address] [place] [address] Medical Director: Fahad Cast MD Glucose [Mass/Vol] 98 mg/dL Normal 72-100 [facility] Comment on above: Result Comment: Sharon puncture should occur prior to sulfasalazine administration due to the potential for falsely depressed results. Venipuncture should occur prior to sulfapyridine administration due to the potential falsely elevated results. Baseline assay values before administration of sulfasalazine and sulfapyridine therapy would not be affected. Performed By: #### 1 70858, 036260, 051698 ####[facility] [address] [place], [place] [id number]) [phone] Director: Fahad Cast MD Potassium [Moles/Vol] 4.2 mmol/L Normal 3.5-5.1 [facility] Comment on above: Performed By: #### 1 13626, 313429, 620736 ####[facility] [address] [place] [address] Medical Director: Fahad Cast MD Sodium [Moles/Vol] 144 mmol/L Normal 135-145 [facility] Comment on above: Performed By: #### 1 67855, 047642, 996060 ####[facility] [address] [place], [place] [id number]) [phone] Director: Fahad Cast MD Urea nitrogen [Mass/Vol] 24 mg/dL High 10-20 [facility] Comment on above: Performed By: #### 1 69129, 372785, 624995 ####[facility] [address] [place], [place] [id number]) [phone] Director: Fahad Cast MD CBCNDon 03-11-2020 Erythrocyte distribution width (RBC) [Ratio] 14.4 % Normal 11.5-14.5 [facility] Comment on above: Performed By: #### 1 44106, 205775, 489334 #### [facility] [address] [place] [address] Actuary Clerk: Fahad Cast MD Hematocrit (Bld) [Volume fraction] 33.9 % Low 36.0-46.0 [facility] Comment on above: Performed By: #### 1 79482, 052392, 287044 #### [facility] [address] [place] [address] Actuary Clerk: Fahad Cast MD Hemoglobin (Bld) [Mass/Vol] 11.2 g/dL Low 12.0-16.0 [facility] Comment on above: Performed By: #### 1 51814, 370819, 731560 #### [facility] [address] [place], [place] [id number] Actuary Clerk: Fahad Cast MD MCH (RBC) [Entitic mass] 29.5 pg Normal 27.0-34.0 [facility] Comment on above: Performed By: #### 1 90447, 303738, 198832 #### [facility] [address] [place] [address] Actuary Clerk: Fahad Cast MD MCHC (RBC) [Mass/Vol] 33.0 g/dL Normal 32.0-37.0 [facility] Comment on above: Performed By: #### 1 97609, 570959, 064545 #### [facility] [address] [place] [address] Actuary Clerk: Fahad Cast MD MCV (RBC) [Entitic vol] 89.5 fL Normal 80.0-100.0 [facility] Comment on above: Performed By: #### 1 49738, 732924, 756670 #### [facility] [address] [place] [address] Actuary Clerk: Fahad Cast MD Platelet mean volume (Bld) [Entitic vol] 6.8 fL Low 7.4-10.4 [facility] Comment on above: Performed By: #### 1 69103, 125705, 372826 #### [facility] [address] [place] [address] Actuary Clerk: Fahad Cast MD Platelets (Bld) [#/Vol] 232 x1000 Normal 150-450 [facility] Comment on above: Performed By: #### 1 33968, 928684, 131350 #### [facility] [address] [place] [address] Actuary Clerk: Fahad Cast MD RBC (Bld) [#/Vol] 3.79 x10 Low 4.20-5.[address] [facility] Comment on above: Result Comment: Note : RBC morphology is normal unless otherwise stated. Evaluation performed only if differential is requested. Performed By: #### 1 87774, 888123, 766053 #### [facility] [address] [place] [address] Actuary Clerk: Fahad Cast MD WBC (Bld) [#/Vol] 5.8 10*3/uL Normal [facility] Comment on above: Performed By: #### 1 68416, 794257, 067406 #### [facility] [address] [place] [address] Actuary Clerk: Fahad Cast MD WBC (Bld) [#/Vol] 5.8 x10 Normal 4.5-11.[address] [facility] Comment on above: Performed By: #### 1 85215, 395619, 419502 #### [facility] [address] [place] [address] Actuary Clerk: Fahad Cast MD D Dimer HSon 03-11-2020 D Dimer HS 821 ng/mL FEU High <=499 [facility] Comment on above: Result Comment: Excl usion of PE and DVT The D Dimer HS assay is reported in ng/ml Fibrinogen Equivalent Units (FEU). Per retail buyer?s instructions for use, a value less than 500ng/ml (FEU) may help to exclude DVT and /or PE in outpatients when the assay is used with a clinical pretest probability assessment. D-Dimer used for DIC Screens Assay results should be used with other information, including the clinical context in forming a diagnosis. Performed By: #### C D:[id number] ####[facility] [address] [place], [place] [id number] Medical Director: Fahad Cast MD LDHon 03-11-2020 LDH 198 unit/L Normal 84-246 [facility] Comment on above: Performed By: #### 1 17525, 380936, 193603 #### [facility] [address] [place] [address] Actuary Clerk: Fahad Cast MD Progress Note-Physicianon Progress Note-Physician Patient: NGUYEN BURNS Age: 74 years Sex: Female : 1945 Associated Diagnoses: None Author: ANABEL WATKINS MD SUBJECTIVE: 74-year-old female with syncope and paroxysmal A. fib. Patient doing much better today. Patient is wishing to go home. Patient was diagnosed with coronavirus. Patient states she might have symptoms starting 2 weeks ago and she did lose a bit of or smell at that time. Patient is feeling better. has a cold as well. VITAL SIGN: TEMPERATURE 36.8 BP 130/72 PULSE 66 PULSE OX 96% RESPIRATORY RATE GENERAL: alert and oriented, breathing comfortably CV: S1 S2 RRR, no murmur CHEST: clear to auscultation, no wheezing or adventicious lung sounds LOWER EXTREMITY : warm, dorsalis pedis pulses palpable ABDOMEN: soft,nontender, positive bowel sounds NEURO: cranial nerves intact, normal speech, using all four extremities LABS: na 144, cre 1.0, wbc 6, hb 12, covid positive RADIOLOGY: ct abd: IMPRESSION: 1. Some patchy airspace opacities are present at both lung bases, suspicious for an infectious process. Dedicated imaging of the chest is recommended. 2. Scattered colonic diverticulosis. 3. There is a stone in what appears to be a vein adjacent to the right ureter rather than a ureteral stone. Clinical correlation with patient's symptoms is recommended as this could represent a phlebolith rather than a renal stone ASSESSMENT/PLAN: 74-year-old female with syncope which is probably related to COVID-19. Patient does have evidence on CAT scan of inflammation. Patient is improved with steroid and she feels much better. We will continue her on steroids at low-dose for 5 days. She is asked to follow-up if she becomes short of breath at all. As regarding her syncope this is probably due to her Covid and once she gets out of her 10-day quarantine then she can go see her PCP if they need to order any additional testing. Patient will continue on anticoagulation and her atenolol and her A. fib is been well controlled here She was clearly asked to take her steroid and quarantine with her for the next 10 days. DIAGNOSES: 1) COVID-19 pneumonia: See HPI. Currently not hypoxic, afebrile, no leukopenia. 2) Diarrhea and abdominal pain: Likely a sequela of #1 3) Syncope: Again, likely 2/2 #1. History of atrial fibrillation as detailed below. 4) Paroxsymal atrial fibrillation ? 5) HTN: Continue home medications. 6) DVT ppx: On Eliquis Normal [facility] Utilization Review Noteon Utilization Review Note ID Consult pending DISCHARGE WRITTEN AND PLANNED. Normal [facility] AUTO DIFFon 03-10-2020 Basophils (Bld) [#/Vol] 0.05 x1000 Normal 0.00-0.20 [facility] Comment on above: Performed By: #### 1 72705, 348200, [id number] ####[facility] [address] [place] [address] Medical Director: Fahad Cast MD Basseb % 0.6 % Normal [facility] Comment on above: Performed By: #### 1 03135, 829064, [id number] ####[facility] [address] [place] [address] Medical Director: Fahad Cast MD Eos Count 0.15 x1000 Normal 0.00-0.50 [facility] Comment on above: Performed By: #### 1 60039, 796525, [id number] ####[facility] [address]rgxre19395 [place] [address] Medical Director: Fahad Cast MD Eosinophils/100 WBC (Bld) 1.8 % Normal [facility] Comment on above: Performed By: #### 1 50395, 035317, [id number] ####[facility] Rqoydmxn48810 [place] [address] Medical Director: Fahad Cast MD Lymphocytes (Bld) [#/Vol] 1.05 x1000 Low 1.20-4.80 [facility] Comment on above: Performed By: #### 1 , [id number], [id number] ####[facility] Nkpgnlfl07699 [place] [address] Medical Director: Fahad Cast MD Lymphocytes/100 WBC (Bld) 12.7 % Normal [facility] Comment on above: Performed By: #### 1 53980, 867086, [id number] ####[facility] Fxwevpkj27796 [place] [address] Medical Director: Fahad Cast MD [place] Count 0.70 x1000 Normal 0.10-1.00 [facility] Comment on above: Performed By: #### 1 45777, 737550, [id number] ####[facility] Auwajaph02406 [place] [address] Medical Director: Fahad Cast MD Monocytes/100 WBC (Bld) 8.4 % Normal [facility] Comment on above: Performed By: #### 1 45853, 402071, [id number] ####[facility] Iozzjqon55676 [place] [address] Medical Director: Fahad Cast MD Neutrophils (Bld) [#/Vol] 6.32 x1000 Normal 1.40-8.80 [facility] Comment on above: Performed By: #### 1 63105, 969185, [id number] ####[facility] [address]ijflzr96823 [place] [address] Medical Director: Fahad Cast MD Neutrophils/100 WBC (Bld) 76.4 % Normal [facility] Comment on above: Performed By: #### 1 , 893590, [id number] ####[facility] Okxulsjr22508 [place] [address] Medical Director: Fahad Cast MD COMPMETAon 03-10-2020 Albumin [Mass/Vol] 3.4 g/dL Normal 3.4-5.0 [facility] Comment on above: Performed By: #### 1 , 995519, [id number] ####[facility] [address]abvs33739 [place] [address] Medical Director: Fahad Cast MD Albumin/Globulin [Mass ratio] 0.8 {ratio} Normal [facility] Comment on above: Performed By: #### 1 , 019627, [id number] ####[facility] [address]sptywt50[address] [place] [address] Medical Director: Fahad Cast MD Alk Phos 71 unit/L Normal 45-117 [facility] Comment on above: Performed By: #### 1 , 801980, 9004869 ####[facility] [address]onfk93962 [place] [address] Medical Director: Fahad Cast MD Bilirubin [Mass/Vol] 0.37 mg/dL Normal 0.20-1.00 [facility] Comment on above: Result Comment: Use of this assay is not recommended for patients undergoing treatment with eltrombopag due to the potential for falsely elevated results. Performed By: #### 1 , 904275, [id number] ####[facility] Fcuekctn22930 [place] [address] Medical Director: Fahad Cast MD Calcium [Mass/Vol] 9.4 mg/dL Normal 8.5-10.5 [facility] Comment on above: Performed By: #### 1 45616, 642522, [id number] ####[facility] [address]elfcarr34130 [place] [address] Medical Director: Fahad Cast MD Chloride [Moles/Vol] 108 mmol/L Normal 100-109 [facility] Comment on above: Performed By: #### 1 76092, 396763, [id number] ####[facility] Hjpzkiiw51391 [place] [address] Medical Director: Fahad Cast MD CO2, venous 28.2 mmol/L Normal 21.0-32.0 [facility] Comment on above: Performed By: #### 1 03953, 022223, 0706523 ####[facility] Ldcopwbs92581 [place] [address] Medical Director: Fahad Cast MD Creatinine [Mass/Vol] 1.2 mg/dL High 0.6-1.0 [facility] Comment on above: Performed By: #### 1 84606, 240917, 7571083 ####[facility] Lmqbmqet34038 [place] [address] Medical Director: Fahad Cast MD GFR AA [address] [facility] Comment on above: Result Comment: Afri can Polish GFR Calc Medical judgement is necessary to interpret GFR. The calculated GFR may not accurately reflect renal status in patients >70 years, women, acutely ill hospitalized patients and patients with acute renal failure or known renal disease. The MDRD GFR formula is valid only for adults greater than 18 years of age. Note: Creatinine clearance (not GFR) should be used for drug dosing. Performed By: #### 1 78490, 232528, [id number] ####[facility] Iw[address]zvle99252 [place] [address] Medical Director: Fahad Cast MD GFR/1.73 sq M predicted among non-blacks MDRD (S/P/Bld) [Vol rate/Area] 44 mL/min/1.73m? Normal [facility] Comment on above: Result Comment: Non GFR Calc Medical judgement is necessary to interpret GFR. The calculated GFR may not accurately reflect renal status in patients >70 years, women, acutely ill hospitalized patients and patients with acute renal failure or known renal disease. The MDRD GFR formula is valid only for adults greater than 18 years of age. Note: Creatinine clearance (not GFR) should be used for drug dosing. Performed By: #### 1 99369, 717855, 1926907 ####[facility] [address] [place] [id number] Medical Director: Fahad Cast MD Globulin (S) [Mass/Vol] 4.0 g/dL Normal [facility] Comment on above: Performed By: #### 1 86817, 239002, 0204697 ####[facility] [address]qxif[address] [place] 1223430 Medical Director: Fahad Cast MD Glucose [Mass/Vol] 143 mg/dL High 72-100 [facility] Comment on above: Result Comment: Sharon puncture should occur prior to sulfasalazine administration due to the potential for falsely depressed results. Venipuncture should occur prior to sulfapyridine administration due to the potential falsely elevated results. Baseline assay values before administration of sulfasalazine and sulfapyridine therapy would not be affected. Performed By: #### 1 88714, 611688, 4565883 ####[facility] [address]fmfkbw69249 [place] [address] Medical Director: Fahad Cast MD GOT 18 unit/L Normal 15-37 [facility] Comment on above: Result Comment: Sharon puncture should occur prior to sulfasalazine and/or sulfapyridine administration due to the potential for falsely depressed results. Baseline assay values before administration of sulfasalazine and sulfapyridine therapy would not be affected. Performed By: #### 1 81137, 673443, 6157960 ####[facility] Hgxzlofz97337 [place], [place] [id number]) [phone] Director: Fahad Cast MD GPT 19 unit/L Normal 13-56 [facility] Comment on above: Result Comment: Sharon puncture should occur prior to sulfasalazine and/or sulfapyridine administration due to the potential for falsely depressed results. Baseline assay values before administration of sulfasalazine and sulfapyridine therapy would not be affected. Performed By: #### 1 93544, 105543, 1368011 ####[facility] Rflsrmpa09632 [place] [address] Medical Director: Fahad Cast MD Osmolality [Osmolality] 293 mOsm/kg Normal 275-295 [facility] Comment on above: Performed By: #### 1 39453, 216178, 9940605 ####[facility] [address]umxxqna56561 [place] [address] Medical Director: Fahad Cast MD Potassium [Moles/Vol] 4.0 mmol/L Normal 3.5-5.1 [facility] Comment on above: Performed By: #### 1 89905, 628352, 2939981 ####[facility] Ccsspfss96206 [place] [address] Medical Director: Fahad Cast MD Protein [Mass/Vol] 7.4 g/dL Normal 6.0-8.5 [facility] Comment on above: Performed By: #### 1 00219, 798952, 3538453 ####[facility] Hcinvugx71596 [place] [address] Medical Director: Fahad Cast MD Sodium [Moles/Vol] 142 mmol/L Normal 135-145 [facility] Comment on above: Performed By: #### 1 46421, 921250, 5539996 ####[facility] Xzmwphto09640 [place] [address] Medical Director: Fahad Cast MD Urea nitrogen [Mass/Vol] 32 mg/dL High 10-20 [facility] Comment on above: Performed By: #### 1 48439, 196503, 4588387 ####[facility] Scirhhym44867 [place] [address] [facility] Director: Fahad Cast MD Urea nitrogen/Creatinin e [Mass ratio] 26.7 mg/mg Normal [facility] Comment on above: Performed By: #### 1 95296, 453235, 2831716 ####[facility] Xstfqakw34187 [place] [address] [facility] Director: Fahad Cast MD COVID-19 by PCR SWEDon 03-10 COVID-19 by PCR SWED Positive Abnormal [facility] Comment on above: Result Comment: CALL ER COCO NG 03/10/2020 18:23:22 EST BY SHF; RBR Performed By: #### C [id number] ####[facility] [address]mxkibaf73016 [place] [address] [facility] Director: Fahad Cast MD CRP QUANTon 03-10-2020 C-Reactive Protein, Quantitative 0.8 mg/dL High 0.0-0.3 [facility] Comment on above: Performed By: #### 1 95994, [id number], [id number] #### [facility] [address] [place] [address] Actuary Clerk: Fahad Cast MD CT ABD PELVIS W IV CONTRASTo n 03-10-2020 CT ABD PELVIS W IV CONTRAST EXAMINATION: CT of the abdomen and pelvis with IV contrast INDICATION: Diarrhea and abdominal cramping. COMPARISON: None. TECHNIQUE: Axial CT scan of the abdomen and pelvis was obtained after the uneventful administration of 90 mL of Isovue-300 intravenous contrast. Coronal and sagittal reformats were provided. This CT exam was performed using one or more of the following dose reduction techniques: Automated exposure control, Adjustment of the mA and/or kV according to patient size, Use of iterative reconstruction technique FINDINGS: VISUALIZED LOWER THORAX: Some patchy airspace opacities are present at both lung bases. These are nonspecific in nature, however likely infectious. Heart is normal in size. LIVER: Normal. GALLBLADDER AND CBD: Cholecystectomy changes. Normal caliber common bile duct. PANCREAS: Normal. SPLEEN: Normal. ADRENAL GLANDS: Normal. KIDNEYS AND URETERS: There is what appears to be a stone within a vein adjacent to the proximal third of the right ureter rather than a stone within the right ureter. URINARY BLADDER: Normal PELVIS: Hysterectomy changes. No free fluid in the pelvis. BOWEL: Scattered colonic diverticulosis. No diverticulitis. Appendix not visualized. No inflammatory changes in the right lower quadrant to suggest acute appendicitis. No dilated loops of small bowel. No obstruction. Tiny hiatus hernia. AORTA AND VASCULATURE: Extensive atheromatous changes throughout the abdominal aorta. No aneurysm. LYMPH NODES: No pathologically enlarged retroperitoneal, mesenteric, or pelvic lymph nodes. ABDOMINAL WALL: Small fat-containing umbilicus hernia. MESENTERY/ASCITES: Normal. OSSEOUS STRUCTURES: Mild to moderate multilevel degenerative changes noted throughout the lumbar spine. These are worst at L4-L5. OTHER: N/A IMPRESSION: 1. Some patchy airspace opacities are present at both lung bases, suspicious for an infectious process. Dedicated imaging of the chest is recommended. 2. Scattered colonic diverticulosis. 3. There is a stone in what appears to be a vein adjacent to the right ureter rather than a ureteral stone. Clinical correlation with patient's symptoms is recommended as this could represent a phlebolith rather than a renal stone Electronically signed by: Oni Liu MD 03/10/2020 3:50 PM BUSINESS TECHNOLOGY ANALYST Technologist: LIEN BLANCA Dictated By: ONI LIU MD Signed By: ONI LIU MD Signed Out: 03/10/20 16:50:[address] [facility] D Dimer HSon 03-10-2020 D Dimer HS 264 ng/mL FEU Normal <=499 [facility] Comment on above: Result Comment: Excl usion of PE and DVT The D Dimer HS assay is reported in ng/ml Fibrinogen Equivalent Units (FEU). Per retail buyer?s instructions for use, a value less than 500ng/ml (FEU) may help to exclude DVT and /or PE in outpatients when the assay is used with a clinical pretest probability assessment. D-Dimer used for DIC Screens Assay results should be used with other information, including the clinical context in forming a diagnosis. Performed By: #### 1 10111, [id number], [id number], [id number] #### [facility] [address] [place] [id number] Actuary Clerk: Fahad Cast MD ED Physician Reporton 2019 ED Physician Report Patient: NGUYEN BURNS Age: 74 years Sex: Female : 1945 Associated Diagnoses: Syncope Author: GLADYS HILARIO DO Basic Information Time seen: Time Seen: GLADYS HILARIO DO / 03/10/2020 14:25 . History source: Patient, granddaughter. Arrival mode: Ambulance. History limitation: None. History of Present Illness The patient presents with syncope. The onset was just prior to arrival. The course/duration of symptoms is improving. The location where the incident occurred was Restaurant. Therapy today: see nurses notes. Preceding symptoms: Diaphoresis, Diarrhea, Pale. Associated symptoms: nausea, vomiting and RUQ abdominal cramping, Fatigue. Associated injury to the none. The patient is a 74 y/o female, PMHx including atrial fibrillation s/p cardiac ablation on Eliquis and HTN, presenting to the ED via EMS after a syncopal event. The patient experienced a syncopal event while out eating lunch at a restaurant. The patient describes that she had been experiencing intermittent episodes of hot flashes and diaphoresis throughout the course of the day today. She states that while she was eating, she began experiencing episodes of RUQ abdominal cramping. She explains that she went to the restroom with her granddaughter and had an episode of diarrhea after which she had a syncopal episode. A nurse at the restaurant was able to assist the patient and EMS was called. Patient did not fall or sustain head injury. Patient now complains of nausea, vomiting, generalized fatigue, and persistent episodes of RUQ abdominal cramping. PSHx includes cholecystectomy. Patient denies any BLE edema or pain, chest pain, or shortness of breath. She states that she has had syncopal episodes in the past associated with her atrial fibrillation. No other complaints or concerns voiced at this time. . Review of Systems Constitutional symptoms: Fatigue, no fever, no chills. Skin symptoms: Pale, No rash, Eye symptoms: Vision unchanged. ENMT symptoms: No ear pain, no sore throat. Respiratory symptoms: No shortness of breath, no cough. Cardiovascular symptoms: Syncope, diaphoresis, no chest pain, no palpitations. Gastrointestinal symptoms: Nausea, vomiting, RUQ abdominal cramping, No diarrhea, Genitourinary symptoms: No dysuria, Musculoskeletal symptoms: No back pain, no Muscle pain. Psychiatric symptoms: No anxiety, no depression. Neurologic symptoms No headache, no dizziness, no weakness. Health Status Allergies: Allergic Reactions (All) Severity Not Documented Codeine- No reactions were documented. Levaquin- No reactions were documented. Opioid-like analgesics- Hives. Penicillins- No reactions were documented.. Medications: (Selected) Inpatient Medications Ordered Normal Saline Bolus (0.9%NaCl): 1,000 mL, 1000 mL/hr, Fluid Bolus IVPB, ONCE Saline Flush: 3 mL, IV Push, PRN, PRN: See Note Line Saline Flush: 3 mL, IV Push, [id number] Documented Medications Documented Eliquis 5 mg oral tablet: 5 mg = 1 tabs, ORAL, BID, 60 tabs, 0 Refill(s) Restoril 30 mg oral capsule: 30 mg = 1 caps, ORAL, QHS, PRN: for sleep, 0 Refill(s) Zestril 20 mg oral tablet: 20 mg = 1 tabs, ORAL, DAILY, 90 tabs, 0 Refill(s) atenolol 50 mg oral tablet: 50 mg = 1 tabs, ORAL, DAILY, 30 tabs, 0 Refill(s) hydroCHLOROthiazide 25 mg oral tablet: 25 mg = 1 tabs, ORAL, DAILY, 30 tabs, 0 Refill(s) omeprazole 40 mg oral delayed release capsule: 40 mg = 1 caps, ORAL, DAILY, 0 Refill(s) potassium chloride 10 mEq oral tablet, ER = K-Dur: 10 mEq = 1 tabs, ORAL, BID, 0 Refill(s). Past Medical/ Family/ Social History Medical history: Atrial fibrillation, HTN. Surgical history: Cholecystectomy. Problem list: Atrial fibrillation, HTN. Physical Examination Vital Signs Vital Signs 03/10/2020 14:05 EST Temperature Oral 36.4 degC NORMAL Peripheral Pulse Rate 59 bpm LOW Respiratory Rate 19 br/min NORMAL Systolic Blood Pressure 101 mmHg NORMAL Diastolic Blood Pressure 43 mmHg LOW SpO2 100 % NORMAL Oxygen Therapy Room air Weight Measured Type of Scale Bed Scale (digital) Height/Length Dosing 162.56 cm Weight Dosing 82.3 kg Body Mass Index Dosing 31 . General: Alert, no acute distress. Skin: Warm, dry, pink, intact. Head: Normocephalic, atraumatic. Neck: Supple. Eye: Pupils are equal, round and reactive to light. Ears, nose, mouth and throat: Oral mucosa moist. Cardiovascular: Regular rate and rhythm, No murmur, Normal peripheral perfusion, No edema. Respiratory: Lungs are clear to auscultation, respirations are non-labored, breath sounds are equal, Symmetrical chest wall expansion. Gastrointestinal: Soft, Nontender, Non distended, Normal bowel sounds. Back: Normal alignment. Musculoskeletal: No swelling, no deformity. Psychiatric: Cooperative. Neurological Alert and oriented to person, place, time, and situation, No focal neurological deficit observed. Medical Decision Making Documents reviewed: Emergency department nurses' notes, flowsheet, emergency department records, prior records. Electrocardiogram: Time 03/10/2020 13:56:00, rate 68, EP Interp, Sinus rhythm with first-degree AV block, SC interval 256, QT/QTc/433, incomplete right bundle branch block with T wave inversions in 1, aVL, V2 and V3. Results review: Lab results : Laboratory 03/10/2020 16:59 EST COVID-19 by PCR SWED Positive 03/10/2020 16:04 EST Estimated Creatinine Clearance 36.59 mL/min 03/10/2020 15:23 EST BUN 32 mg/dL HI Na 142 mmol/L NORMAL K 4.0 mmol/L NORMAL Chloride 108 mmol/L NORMAL CO2, venous 28.2 mmol/L NORMAL Glucose 143 mg/dL HI Creatinine 1.2 mg/dL HI Total Protein 7.4 g/dL NORMAL Calcium 9.4 mg/dL NORMAL Bilirubin, Total 0.37 mg/dL NORMAL Alk Phos 71 unit/L NORMAL GOT 18 unit/L NORMAL GPT 19 unit/L NORMAL BUN/Creat Ratio 26.7 NA Calculated Osmolality 293 mOsm/kg NORMAL Globulin 4.0 g/dL NA A/G Ratio 0.8 NA Lipase 135 unit/L NORMAL Magnesium 1.9 mg/dL NORMAL LACTATE 1.8 mmol/L NORMAL ALB 3.4 g/dL NORMAL TROPONIN <0.015 ng/mL NORMAL Glomerular Filtration Rate 44 mL/min/1.73m? NA GFR AA 53 NA WBC 8.3 x10 RBC 3.99 x10 HGB 11.7 g/dL LOW HCT 35.8 % LOW MCV 89.8 fL NORMAL MCH 29.4 pg NORMAL MCHC 32.7 g/dL NORMAL RDW 14.5 NORMAL Platelet 252 x1000 NORMAL MPV 6.7 fL LOW Nucleated RBC 0 /100WBC NA Lymph % 12.7 % NA [place] % 8.4 % NA Neutrophil % 76.4 % NA Eosin % 1.8 % NA Basos % 0.6 % NA Lymph Count 1.05 x1000 LOW [place] Count 0.70 x1000 NORMAL Neutrophil Count (ANC) 6.32 x1000 NORMAL Eos Count 0.15 x1000 NORMAL Baso Count 0.05 x1000 NORMAL . Radiology results: CHEST PORTABLE 03/10/20 14:21:00 EXAM DESCRIPTION: XR CHEST PORTABLE CLINICAL HISTORY: 74 years Female . Syncope. Atrial fibrillation. COMPARISON: None TECHNIQUE: Upright portable chest x-ray FINDINGS: Borderline heart size. No suspicious mediastinal widening. Left mediastinal calcifications. Surgical clips in the left axilla presumably related to left breast surgery. No obvious acute lung pleural bone abnormalities. Electronically signed by: Monae Hernandez MD 03/10/2020 1:58 PM BUSINESS TECHNOLOGY ANALYST Signed By: MONAE HERNANDEZ MD CT ABD PELVIS W CONTRAST 03/10/20 14:45:00 EXAMINATION: CT of the abdomen and pelvis with IV contrast INDICATION: Diarrhea and abdominal cramping. COMPARISON: None. TECHNIQUE: Axial CT scan of the abdomen and pelvis was obtained after the uneventful administration of 90 mL of Isovue-300 intravenous contrast. Coronal and sagittal reformats were provided. This CT exam was performed using one or more of the following dose reduction techniques: Automated exposure control, Adjustment of the mA and/or kV according to patient size, Use of iterative reconstruction technique FINDINGS: VISUALIZED LOWER THORAX: Some patchy airspace opacities are present at both lung bases. These are nonspecific in nature, however likely infectious. Heart is normal in size. LIVER: Normal. GALLBLADDER AND CBD: Cholecystectomy changes. Normal caliber common bile duct. PANCREAS: Normal. SPLEEN: Normal. ADRENAL GLANDS: Normal. KIDNEYS AND URETERS: There is what appears to be a stone within a vein adjacent to the proximal third of the right ureter rather than a stone within the right ureter. URINARY BLADDER: Normal PELVIS: Hysterectomy changes. No free fluid in the pelvis. BOWEL: Scattered colonic diverticulosis. No diverticulitis. Appendix not visualized. No inflammatory changes in the right lower quadrant to suggest acute appendicitis. No dilated loops of small bowel. No obstruction. Tiny hiatus hernia. AORTA AND VASCULATURE: Extensive atheromatous changes throughout the abdominal aorta. No aneurysm. LYMPH NODES: No pathologically enlarged retroperitoneal, mesenteric, or pelvic lymph nodes. ABDOMINAL WALL: Small fat-containing umbilicus hernia. MESENTERY/ASCITES: Normal. OSSEOUS STRUCTURES: Mild to moderate multilevel degenerative changes noted throughout the lumbar spine. These are worst at L4-L5. OTHER: N/A IMPRESSION: 1. Some patchy airspace opacities are present at both lung bases, suspicious for an infectious process. Dedicated imaging of the chest is recommended. 2. Scattered colonic diverticulosis. 3. There is a stone in what appears to be a vein adjacent to the right ureter rather than a ureteral stone. Clinical correlation with patient's symptoms is recommended as this could represent a phlebolith rather than a renal stone Electronically signed by: Oni Liu MD 03/10/2020 3:50 PM BUSINESS TECHNOLOGY ANALYST Signed By: ONI LIU MD . Notes: 74-year-old female presented to the ER after syncopal episode at a restaurant. Upon arrival to the ER she was mildly bradycardic with a heart rate of 59 and had a blood pressure of 101/43. Overall physical examination was unremarkable. EKG demonstrated sinus rhythm with first-degree AV block. Basic blood work was grossly unremarkable. Chest x-ray did not demonstrate any acute pulmonary abnormalities. CT of the abdomen and pelvis demonstrated a stone in what appears to be a vein adjacent to the right ureter. They also noted some patchy airspace opacities present at both lung bases suspicious for infectious process. Because of this a COVID-19 test was added on and this was positive. While watching the patient on the monitor she did appear to drop beats every once in a while. At this time she will be admitted under observation for her syncopal episode. Patient was in agreement with the plan. She also was advised that she needs to notify all close contacts that she was positive for COVID-19.. Reexamination/ Reevaluation Vital signs results included from flowsheet : Vital Signs 03/10/2020 18:00 EST Heart Rate Monitored 72 bpm NORMAL Peripheral Pulse Rate 69 bpm NORMAL SpO2 97 % NORMAL Oxygen Therapy Room air Course: improving. Impression and Plan Diagnosis Syncope ([id number], Working, Medical) Plan Condition: Stable. Disposition: Place in Observation Telemetry Unit, JERRICA RUST MD. Counseled: Patient, Regarding diagnosis, Regarding diagnostic results, Regarding treatment plan, Patient indicated understanding of instructions. Notes: Aracely Cruz, am scribing for and in the presence of Gladys Hilario DO. Scribe Signature: Fatemeh Novak, 03/10/2020 14:53 , I personally performed the services described in the documentation, reviewed and edited the documentation which was dictated to the scribe in my presence, and it accurately records my words and actions.. Normal [facility] ED Pre-Arrival Formon 2019 ED Pre-Arrival Form Pre-Arrival Summary Name: STR, Current Date: 03/10/2020 13:52:19 EST Gender: Date of : Age: Pre-Arrival Type: EMS ETA: 03/10/2020 14:15:00 EST Primary Care Physician: Presenting Problem: Pre-Arrival User: Neil Vázquez RN Referring Source: Location: 1 [facility] Emergency Department [address] [place] [address]. [place] [address] ____ Notes: Vital Signs: Doctor Call Back: DNR Status: Miscellaneous Issues: Normal [facility] ED Progress Noteon 0 ED Progress Note report not put in by previous rn pt here for syncopal episode after diarrhea episode pt has hx of afib. pt covid+ report called to neil ramsey will come get pt Normal [facility] FERRITINon 03-10-2020 Ferritin [Mass/Vol] 32 ng/mL Normal 8-252 [facility] Comment on above: Performed By: #### 1 [id number], [id number], [id number] #### [facility] Services [address] [place] [address] Actuary Clerk: Fahad Cast MD HEMOon 03-10-2020 DIFF? No Normal [facility] Comment on above: Performed By: #### 1 98736, 217059, [id number] ####[facility] [address]qcu[address] [place], [place] [id number]) [phone] Director: Fahad Cast MD Erythrocyte distribution width (RBC) [Ratio] 14.5 % Normal 11.5-14.5 [facility] Comment on above: Performed By: #### 1 16503, 256968, [id number] ####[facility] [address]adonb57[address] [place] [address] Medical Director: Fahad Cast MD Hematocrit (Bld) [Volume fraction] 35.8 % Low 36.0-46.0 [facility] Comment on above: Performed By: #### 1 15917, 099586, [id number] ####[facility] [address]cmem[address] [place] [address] Medical Director: Fahad Cast MD Hemoglobin (Bld) [Mass/Vol] 11.7 g/dL Low 12.0-16.0 [facility] Comment on above: Performed By: #### 1 32862, 745279, [id number] ####[facility] [address]723[address] [place], [place] [id number]) [phone] Director: Fahad Cast MD MCH (RBC) [Entitic mass] 29.4 pg Normal 27.0-34.0 [facility] Comment on above: Performed By: #### 1 09231, 592331, [id number] ####[facility] [address]tad15[address] [place] [address] Medical Director: Fahad Cast MD MCHC (RBC) [Mass/Vol] 32.7 g/dL Normal 32.0-37.0 [facility] Comment on above: Performed By: #### 1 51547, 917226, [id number] ####[facility] [address]qddlpr70787 [place] [address] Medical Director: Fahad Cast MD MCV (RBC) [Entitic vol] 89.8 fL Normal 80.0-100.0 [facility] Comment on above: Performed By: #### 1 99502, 062935, [id number] ####[facility] Z[address]rqdvx41296 [place] [address] Medical Director: Fahad Cast MD Nucleated RBC (Bld) [#/Vol] 0 /100WBC Normal [facility] Comment on above: Performed By: #### 1 76289, 769767, 7236020 ####[facility] [address] [place] [address] Medical Director: Fahad Cast MD Platelet mean volume (Bld) [Entitic vol] 6.7 fL Low 7.4-10.4 [facility] Comment on above: Performed By: #### 1 56871, 212902, [id number] ####[facility] [address]jtnv55134 [place] [address] Medical Director: Fahad Cast MD Platelets (Bld) [#/Vol] 252 x1000 Normal 150-450 [facility] Comment on above: Performed By: #### 1 71597, 776337, [id number] ####[facility] [address]of[address] [place], [place] [id number]) [phone] Director: Fahad Cast MD RBC (Bld) [#/Vol] 3.99 x10 Low 4.20-5.[address] [facility] Comment on above: Result Comment: Note : RBC morphology is normal unless otherwise stated. Evaluation performed only if differential is requested. Performed By: #### 1 78064, 555959, [id number] ####[facility] T[address]btzcv90[address] [place], [place] [id number]) [phone] Director: Fahad Cast MD WBC (Bld) [#/Vol] 8.3 10*3/uL Normal [facility] Comment on above: Performed By: #### 1 07155, 363557, [id number] ####[facility] Tkcozwvf11985 [place], [place] [id number]) [phone] Director: Fahad Cast MD WBC (Bld) [#/Vol] 8.3 x10 Normal 4.5-11.[address] [facility] Comment on above: Performed By: #### 1 13354, 363577, [id number] ####[facility] [address] [place], [place] [id number]) [phone] Director: Fahad Cast MD History and Physicalon 03-10 History and Physical Patient: NGUYEN BURNS Age: 74 years Sex: Female : 1945 Associated Diagnoses: None Author: EMILY ARROYO DO Basic Information Source of history: Self. Chief Complaint Syncope History of Present Illness This is a 74 year old female with a past medical history of atrial fibrillation on Eliquis, history of HTN who presents to the ED status post syncopal event. Patient was out at a restaurant when she became diaphoretic and dizzy. She states she also felt very warm. She had some abdominal cramping as well. She went to the restroom at the restaurant and had a large episode of diarrhea and at some point lost consciousness in the bathroom. She was brought to ED via EMS. At the time of arrival, she still complained of abdominal pain and cramping. CT abdomen and pelvis was performed and abdominal region was unremarkable but there was an incidental finding of pneumonia in lower lung solo. She was tested for COVID PCR and is positive. She continues to have some abdominal discomfort but denies any respiratory symptoms such as cough and congestion. She does not have fever. She will be admitted for further evaluation and treatment. Histories Past Medical History: HTN Paroxsymal atrial fibrillation GERD Family History: No family history items have been selected or recorded. Procedure history: No active procedure history items have been selected or recorded. Social History Social History No active social history has been recorded Psychosocial History No active psychosocial history has been recorded. Health Status Current medications: Home Meds (ST) Home Medications (7) Active atenolol 50 mg oral tablet 50 mg = 1 tabs, ORAL, DAILY Eliquis 5 mg oral tablet 5 mg = 1 tabs, ORAL, BID hydroCHLOROthiazide 25 mg oral tablet 25 mg = 1 tabs, ORAL, DAILY omeprazole 40 mg oral delayed release capsule 40 mg = 1 caps, ORAL, DAILY potassium chloride 10 mEq oral tablet, ER = K-Dur 10 mEq = 1 tabs, ORAL, BID Restoril 30 mg oral capsule 30 mg = 1 caps, PRN, ORAL, QHS Zestril 20 mg oral tablet 20 mg = 1 tabs, ORAL, DAILY Review of Systems ROS is negative x 12 unless mentioned in above HPI. Physical Examination VS/Measurements Vital Signs (last 24 hrs) Last Charted Temp Oral 36.4 degC (MAR 10 14:05) Heart Rate Peripheral 69 bpm (MAR 10 18:00) Resp Rate 19 br/min (MAR 10 14:05) SBP 105 mmHg (MAR 10 16:00) DBP L 50mmHg (MAR 10 16:00) Physical Exam: General: No acute distress. HEENT: No scleral icterus, no discharge from eyes, nose, or mouth. Neck: Supple; no adenopathy. Respiratory: No acute respiratory distress, respirations unlabored, no audible wheezing. Cardiac: RRR Abdomen: BS normal. Soft, nontender, no masses appreciated. No guarding or rigidity. Extremities: No peripheral edema in upper or lower extremities bilaterally. Neurological: Grossly normal cognition and motor function. Psychiatric: Normal affect and mood. Review / Management Results review: Labs (Last four charted values) WBC 8.3 (MAR 10) Hgb L 11.7 (MAR 10) Hct L 35.8 (MAR 10) Plt 252 (MAR 10) Na 142 (MAR 10) K 4.0 (MAR 10) CO2 28.2 (MAR 10) Cl 108 (MAR 10) Cr H 1.2 (MAR 10) BUN H 32 (MAR 10) Glucose Random H 143 (MAR 10) Mg 1.9 (MAR 10) Ca 9.4 (MAR 10) Troponin <0.015 (MAR 10) . Impression and Plan 1) COVID-19 pneumonia: See HPI. Currently not hypoxic, afebrile, no leukopenia. 2) Diarrhea and abdominal pain: Likely a sequela of #1 ?Continue supportive care ?Supplemental oxygen as needed ?Consult to infectious disease ?IV azithromycin 500 mg daily, Dexamethasone 6 mg daily, AC on Eliquis ?Obtain D-dimer, pro calcitonin, CRP, and ferritin levels ?Continue IV fluids ?Monitor fever curve, Tylenol as needed 3) Syncope: Again, likely 2/2 #1. History of atrial fibrillation as detailed below. 4) Paroxsymal atrial fibrillation ?Continue home oral anticoagulation ?Continue rate controlling medications ?Goal mag greater than 2 and K greater than 4 - Monitor on telemetry 5) HTN: Continue home medications. 6) DVT ppx: On Eliquis OT MESA on Normal [facility] LACTATEon 03-10-2020 Lactate [Moles/Vol] 1.8 mmol/L Normal 0.4-2.0 [facility] Comment on above: Performed By: #### 1 51328 #### [facility] Services [address] [place] [address] Actuary Clerk: Fahad Cast MD LIPon 03-10-2020 Lipase [Catalytic activity/Vol] 135 unit/L Normal 73-393 [facility] Comment on above: Performed By: #### 1 32735, 204800, 288140 ####[facility] [address]ksbamin[address] [place] [address] Medical Director: Fahad Cast MD MG LEVELon 03-10-2020 Magnesium [Mass/Vol] 1.9 mg/dL Normal 1.6-2.6 [facility] Comment on above: Performed By: #### 1 61531, 796307, 775464 ####[facility] [address]vrpkjg34709 [place] [address] Medical Director: Fahad Cast MD PCTon 03-10-2020 Procalcitonin <0.[address] [facility] Comment on above: Result Comment: INTE RP DATA Less than or = 0.5 ng/mL Systemic infection (sepsis) is not likely. Local bacterial infection is possible. If PCT is measured very early after a bacterial challenge (usually less than 6 hours), these values may still be low. In this case, PCT should be re-assessed 6-24 hrs later. Greater than 0.5 - less than 2.0 ng/mL Systemic infection (sepsis) is possible, but other conditions are known to elevate PCT as well. The patient should be closely monitored both clinically and by re-assessing PCT within 6-24 hrs. Greater than or = 2.0 - less than 10.0 ng/mL Critical Range Systemic infection (sepsis) is likely, unless other causes are known. High risk for progression to severe systemic infection (severe sepsis/septic shock). Greater than or = 10.0 ng/mL Critical Range Important systemic inflammatory response, almost exclusively due to severe bacterial sepsis or septic shock. High likelihood of severe sepsis or septic shock. Performed By: #### 1 77925, [id number], [id number], [id number] #### [facility] Services [address] [place] [address] Actuary Clerk: Fahad Cast MD TROPONINon 03-10-2020 Troponin I.cardiac [Mass/Vol] ng/mL Normal 0.000-0.099 [facility] Comment on above: Result Comment: This test is a quantitative determination of cardiac troponin I. High levels of serum biotin may interfere with this test. Performed By: #### 1 63742, 368072, 527573 ####[facility] [address] [place] [address] Medical Director: Fahad Cast MD XR CHEST PORTABLEon 03-10-20 XR CHEST PORTABLE EXAM DESCRIPTION: XR CHEST PORTABLE CLINICAL HISTORY: 74 years Female . Syncope. Atrial fibrillation. COMPARISON: None TECHNIQUE: Upright portable chest x-ray FINDINGS: Borderline heart size. No suspicious mediastinal widening. Left mediastinal calcifications. Surgical clips in the left axilla presumably related to left breast surgery. No obvious acute lung pleural bone abnormalities. Electronically signed by: Monae Hernandez MD 03/10/2020 1:58 PM BUSINESS TECHNOLOGY ANALYST Technologist: THANG JAMES Dictated By: MONAE HERNANDEZ MD Signed By: MONAE HERNANDEZ MD Signed Out: 03/10/20 14:58:[address] [facility] Vital Signs Date Time Vital Sign Value Performing Clinician Facility 10-30-2022 14:45-0400 Body height 165.1 cm Elliot Starks Other [facility] Other 10-30-2022 14:45-0400 Body mass index (BMI) [Ratio] 28.4 kg/m2 Elliot Starks Other [facility] Other 10-30-2022 14:45-0400 Body weight 77.43 kg Elliot Starks Other [facility] Other 10-30-2022 14:45-0400 Diastolic blood pressure 66 mm[Hg] Elliot Starks Other [facility] Other 10-30-2022 14:45-0400 Systolic blood pressure 123 mm[Hg] Elliot Starks Other [facility] Other 06-04-2022 11:30-0500 Body height 165.1 cm Elliot Starks Other [facility] Other 06-04-2022 11:30-0500 Body mass index (BMI) [Ratio] 28.29 kg/m2 Elliot Starks Other [facility] Other 06-04-2022 11:30-0500 Body weight 77.11 kg Elliot Starks Other [facility] Other 06-04-2022 11:30-0500 Diastolic blood pressure 64 mm[Hg] Elliot Starks Other [facility] Other 06-04-2022 11:30-0500 SaO2% (BldA) [Mass fraction] 99 % Elliot Starks Other [facility] Other 06-04-2022 11:30-0500 Systolic blood pressure 104 mm[Hg] Elliot Starks Other [facility] Other Encounters Encounter Date Encounter Type Care Provider Facility Start: 05-27-2023 ambulatory Alfreda Miller Facility:[facility] Start: 03-30-2023 (Televisit) Televisit Elliot Starks [facility] Start: 03-30-2023 End: 03-30-2023 ambulatory Elliot Starks Other [facility] Other Start: 02-11-2023 End: 02-12-2023 ambulatory Alfreda MLobo Lue Facility:[facility] Start: 02-11-2023 End: 02-11-2023 Patient encounter procedure Alfreda Miller [facility] Start: 11-17-2022 End: 11-17-2022 ambulatory Elliot Starks Other [facility] Other Start: 11-17-2022 Telephone encounter Elliot Starks [facility] Start: 11-06-2022 ambulatory Alfreda Lue Facility:[facility] Start: 10-30-2022 End: 10-30-2022 ambulatory Elliot Starks Other [facility] Other Start: 10-30-2022 Office outpatient visit 15 minutes Elliot Starks [facility] Start: 10-29-2022 End: 10-29-2022 ambulatory Elliot Starks Other [facility] Other Start: 10-29-2022 Telephone encounter Elliot Starks [facility] Start: 10-27-2022 Nursing evaluation o f patient and report Elliot Starks [facility] Start: 10-27-2022 End: 10-27-2022 ambulatory Elliot Starks [employer] Other Start: 10-27-2022 End: 10-27-2022 Departed Referred MD Elliot Starks Work Phone: [facility] Work Phone: Start: 09-11-2022 Telephone encounter Matt Duron Hematology/Oncology Comment on above: Orders Start: 08-11-2022 End: 08-11-2022 ambulatory Elliot Starks Other [facility] Other Start: 08-11-2022 Nursing evaluation o f patient and report Elliot Starks [facility] Start: 07-17-2022 (Televisit) Televisit Elliot Dela Cruz [facility] Start: 07-17-2022 End: 07-17-2022 ambulatory Elliot Starks Other [facility] Other Start: 06-23-2022 End: 06-23-2022 ambulatory Elliot Starks [facility] Other Start: 06-23-2022 Nursing evaluation o f patient and report Elliot Starks [facility] Start: 06-09-2022 End: 06-09-[address] ELLIOT STARKS Facility: Start: 06-06-2022 End: 06-06-2022 ambulatory Elliot Raudel Other [facility] Other Start: 06-06-2022 Telephone encounter Elliot Raudel [facility] Start: 06-04-2022 End: 06-04-2022 ambulatory Elliot Starks Other [facility] Other Start: 06-04-2022 Office outpatient visit 25 minutes Elliot Raudel [facility] Start: 05-21-2022 End: 05-21-2022 ambulatory Elliot Raudel Other [facility] Other Start: 05-21-2022 Telephone encounter Elliot Raudel [facility] Start: 04-26-2022 End: 04-26-[address] ELLIOT STARKS Facility:[facility] Start: 04-14-2022 End: 04-14-[address] ELLIOT STARKS Facility:[facility] Start: 10-03-2021 Telephone encounter Andrew black MD Work Phone: Hematology/Oncology Comment on above: Lab Orders Start: 09-26-2021 Telephone encounter Elton jimenez RN Work Phone: Hematology/Oncology Comment on above: Radiology Mammogram Start: 12-02-2016 End: 12-03-2016 Ambulatory DEFAULT PHYSICIAN Facility:[facility] Procedures Date Procedure Procedure Detail Performing Clinician Start: 09-25-2020 Mammography Elton jimenez RN Work Phone: Start: 10-07-2019 Adult depression scr eening assessment Elton Dominguez RN Work Phone: Start: 01-01-2017 Screening mammography Deric St[facility] Other Start: 02-01-2013 General examination of patient Elliot Starks Other Appendectomy Alfreda Lue Bilateral cataracts (disorder) Alfreda Lue Cardiac ablation sys tem (physical object) Alfreda Lue Cholecystectomy Alfreda Lue Insertion of hip prosthesis Alfreda Miller Lumpectomy of left breast Gómez Miller Rotator cuff includi ng muscles and tendons (body structure) Alfreda Miller Screening for malign ant neoplasm of breast [facility] Other Total abdominal hysterectomy Alfreda Miller Plan of Treatment Date Care Activity Detail Author Start: 10-09-2023 DIABETES SCREEN DIABETES SCREEN [facility] Start: 01-02-2023 Influenza vaccination INFLUENZ A (Season Ended) [facility] Start: 10-27-2022 Bacteria identified in Urine by Culture [facility] Start: 05-04-2022 ADVANCE DIRECTIVE DISCUSSION ADVANCE DIRECTIVE DISCUSSION [facility] Start: 05-04-2022 DEPRESSION ASSESSMENT DEPRESSION ASS ESSMENT [facility] Start: 01-02-2022 Influenza vaccination INFLUENZ A (Season Ended) [facility] Start: 10-07-2021 End: 12-07-2021 Cancer Ag 27-29 [Units/volume] in Serum or Plasma CA 27.29 BLOOD Lab Routine Malignant neoplasm of upper-outer quadrant of left breast in female, estrogen receptor positive (HCC) Expected: 10/07/2021, Expires: 12/07/2021 [facility] Work Phone: Comment on above: Expected: 10/07/2021 , Expires: 12/07/2021 Start: 10-07-2021 End: 12-07-2021 CBC W Auto Differential panel - Blood CBC + DIFF Lab Routine Malignant neoplasm of upper-outer quadrant of left breast in female, estrogen receptor positive (HCC) Expected: 10/07/2021, Expires: 12/07/2021 [facility] Work Phone: Comment on above: Expected: 10/07/2021 , Expires: 12/07/2021 Start: 10-07-2021 End: 12-07-2021 Comprehensive metabolic 2000 panel - Serum or Plasma COMP METABOLIC PANEL Lab Routine Malignant neoplasm of upper-outer quadrant of left breast in female, estrogen receptor positive (HCC) Expected: 10/07/2021, Expires: 12/07/2021 [facility] Work Phone: Comment on above: Expected: 10/07/2021 , Expires: 12/07/2021 Start: 09-25-2021 Mammography MAMMOGRAM [facility] Start: 05-04-2021 ADVANCE DIRECTIVE DISCUSSION ADVANCE DIRECTIVE DISCUSSION [facility] Start: 11-17-2020 COVID-19 VACCINE (3 - Booster for Pfizer series) COVID-19 VACCINE (3 - Booster for Pfizer series) [facility] Start: 10-06-2020 Adult depression screening assessment DEPRESSION SCREENING [facility] Start: 08-15-2020 COVID-19 VACCINE (3 - Booster for Pfizer series) COVID-19 VACCINE (3 - Booster for Pfizer series) [facility] Start: 01-05-2019 PNEUMOCOCCAL: 65+ (2 - PCV) PNEUMOCOCCAL: 65+ (2 - PCV) [facility] Start: 07-07-2012 BONE DENSITY BONE DENSITY [facility] Start: 07-07-1997 SHINGRIX VACCINE (1 of 2) SHINGRIX VACCINE (1 of 2) [facility] Start: 07-07-1992 COLOGUARD (FIT-DNA) COLOGUARD (FIT-D NA) [facility] Start: 07-07-1992 Colonoscopy COLONOSCOPY [facility] Start: 07-07-1992 COLORECTAL CANCER SCREENING COLORECTAL CANCER SCREENING [facility] Start: 07-07-[address] COLONOGRAPHY [facility] Start: 07-07-1992 FECAL OCCULT BLOOD FECAL OCCULT BLOO D [facility] Start: 07-07-1992 LIPID SCREEN LIPID SCREEN [facility] Start: 07-07-1992 SIGMOIDOSCOPY SIGMOIDOSCOPY [facility] Start: 07-07-1966 Urine microalbumin profile DTAP,TDAP,TD (1 - Tdap) [facility] Start: 07-07-1965 HEPATITIS C SCREENING HEPATITIS C SC LUCIUSNING [facility] Start: 07-07-1953 PNEUMOCOCCAL: 65+ (1 - PCV) PNEUMOCOCCAL: 65+ (1 - PCV) [facility] End: 10-26-2022 AUGUSTINA SCREENING W YAW AUGUSTINA SCREENING W YAW Radiology Routine Encounter for screening mammogram for malignant neoplasm of breast 1 Occurrences starting 09/26/2021 until 10/26/2022 [facility] Work Phone: Comment on above: 1 Occurrences starti ng 09/26/2021 until 10/26/2022 End: 10-11-2023 AUGUSTINA SCREENING W YAW AUGUSTINA SCREENING W YAW Radiology Routine Encounter for screening mammogram for malignant neoplasm of breast 1 Occurrences starting 09/11/2022 until 10/11/2023 [facility] Work Phone: Comment on above: 1 Occurrences starti ng 09/11/2022 until 10/11/2023 [facility] Immunizations Immunization Date Immunization Notes Care Provider [facility] 02-10-2023 influenza virus vaccine, unspecified formulation Alfreda Lue [facility] 02-01-2022 influenza virus vaccine, unspecified formulation Alfreda Lue [facility] 08-13-2021 SARS-CoV-2 mRNA (nouuzxkpmes-qqux-fmzej se) vaccine Alfreda Lue [facility] 01-29-2021 SARS-CoV-2 (COVID-19 ) mRNA BNT-162b2 vax Alfreda Lue [facility] Comment on above: Result Comment: 2022: [id number] 06-20-2020 COVID-19 vaccine, ag e 12+ yr (PFIZER-BIONTECH - PURPLE TOP) Elton Dominguez RN Work Phone: [facility] 05-28-2020 SARS-CoV-2 (COVID-19 ) mRNA BNT-162b2 vax Alfreda Lue [facility] 05-18-2020 COVID-19 vaccine, ag e 12+ yr (PFIZER-BIONTECH - PURPLE TOP) Elton Dominguez RN Work Phone: [facility] 01-27-2020 influenza virus vaccine, split virus (incl. purified surface antigen) Elliot Starks Other [facility] Other 01-27-2020 influenza virus vaccine, unspecified formulation Alfreda Lue [facility] 01-20-2019 influenza virus vaccine, unspecified formulation Alfreda Lue [facility] 01-20-2019 influenza, high dose seasonal, preservative-free Elton Dominguez RN Work Phone: [facility] 03-09-2018 influenza virus vaccine, unspecified formulation Alfreda Lue [facility] 01-05-2018 influenza virus vaccine, split virus (incl. purified surface antigen) Elliot Starks Other [facility] Other 01-05-2018 influenza virus vaccine, unspecified formulation Alfreda Lue [facility] 01-05-2018 influenza, high dose seasonal, preservative-free Elton Dominguez RN Work Phone: [facility] 01-05-2018 pneumococcal polysaccharide vaccine, 23 valent Elton Dominguez RN Work Phone: [facility] 02-25-2017 influenza virus vaccine, unspecified formulation Alfreda Lue [facility] 02-17-2017 pneumococcal polysaccharide vaccine, 23 valent Alfreda Lue [facility] 02-05-2017 influenza virus vaccine, split virus (incl. purified surface antigen) Elliot Starks Other [facility] Other 02-05-2017 influenza virus vaccine, unspecified formulation Alfreda Lue [facility] 02-05-2017 pneumococcal conjuga te vaccine, 13 valent Alfreda Miller [facility] 02-01-2002 pneumococcal polysaccharide vaccine, 23 valent Elliot Starks Other [facility] Other Payers Date Payer Category Payer Self-pay 2014 Medicare [employer] MEDICARE A ETNA MEDICARE PPO [id number] 2014-Present [phone] [address] [place] [address] PPO [id number] 2014 Medicare [employer] MEDICARE A ETNA MEDICARE PPO [id number] 2014-Present [phone] [address] [place] [address] PPO [id number] 1959 Medicare [id number] 1945 Unknown [id number] 1945 Unknown [id number] 1945 Unknown [id number] 1945 Unknown [id number] 1945 Unknown [id number] Private Health Insurance [employer] [facility] [id number] Unknown Unknown [id number] Social History Date Type Detail Facility Start: 12-03-2015 End: 02-11-2023 Tobacco smoking status NHIS Ex-smoker [facility] End: 12-05-1990 History of tobacco use Current smoker [facility] Start: 12-03-2015 End: 12-06-2015 Cigarettes smoked current (pack per day) - Reported 1 [facility] Start: 12-03-2015 End: 12-06-2015 Tobacco use and exposure Smokeless tobacco non-user [facility] Start: 10-08-2020 Alcohol intake Current drinke r of alcohol (finding) [facility] Start: 1945 Sex Assigned At Not on file C [facility] Sex Assigned At [facility] End: 12-05-1990 History of tobacco use Cigarette Smoker [facility] Start: 1945 Sex Assigned At Female F [facility] Tobacco smoking status Never [facility] Functional Status Date Assessment Result Facility 02-11-2023 Functional Status N/A [facility] Clinical Notes 09-26-2021 to 03-30-2023 Note Date & Type Note Facility 03-30-2023 Evaluation note Encounter Date Diagnosis Assessment Notes Mar, Acute non-recurren t maxillary sinusitis (ICD-10 - J01.00) Discussed diagnosis with patient. Instructed to take ATB as directed and complete entire course even if asymptomatic. OTC Tylenol or ibuprofen for discomfort. Saline nasal spray prn congestion. Flonase nasal spray prn congestion. OTC cough medication prn cough. Push fluids and rest. Cool mist humidier. Immediate evaluation if worsening symptoms. Patient to notify office should symptoms persist or not improve. Pt verbalizes understanding and agrees with tx plan. [facility] Other [id number] NoteChief Complaint Referral *Frequent UTI HPI Staff Evaluation requested by Dr Elliot Starks due to Frequent UTI Pt is a new pt. Never before seen in our office. Per PCP note, pt has [address] ab/p 03/10/20 (most recent & relevant image on [facility]inis[facility]) +C&S 04/14/22 >100k E Coli +C&S 06/09/22 pansensitive >100k E Coli +C&S 10/27/22 pansensitive >100k E Coli Pt states she has Hx of Microscopic Hematuria, states since high school. Occasional visible blood w/UTI. Pt does take Eliquis therapy. Cardinal Sx of UTI: odor to urine & increased urgency w/pain and burning. Tries to ensure she empties completely, sits a little longer and pushes/strains. Hx of Hysterectomy. Denies leaking. Denies family Hx of Bladder Cancer. PVR 15ml History of Present Illness Tests reviewed: reviewed UA and External Records including notes, labs, imaging I have reviewed the previous health record information and history for this patient from External Provider. I have reviewed and verified the staff HPI to be accurate for this encounter. There have been no associated fever, chills, flank pain, or blood in the urine. Review of Systems PHQ Score Initial Depression Screen Score: 0 ROS - Provider Constitutional: denies weight loss, denies hot flashes. Eyes: denies eye problems. Gastrointestinal: denies nausea, denies vomiting. Cardiovascular: denies chest pain or angina. Integumentary: no dryness Musculoskeletal: denies musculoskeletal symptoms. ENMT: denies otolaryngeal symptoms. Respiratory: no shortness of breath. Heme/Lymph: denies easy bleeding tendency, denies easy bruising tendency. Psychiatric: no confusion, no anxiety. Genitourinary: See HPI. Physical Exam Vitals & Measurements HT: 65 in HT: 165 cm WT: 77.5 kg WT: 170.5 lb BMI: 28.47 General Appearance: alert , no acute distress, well nourished, well developed female. Head: normocephalic . Eyes: normal orbit and globe. ENMT: normal examination of external ears. Chest: symmetric chest rise, respirations non labored . Cardiovascular: regular rate and rhythm. Abdomen: soft, non distended, no tenderness Genitourinary: bladder nonpalpable, no flank tenderness. Skin: warm, dry, no bruising. Psychiatric: cooperative, affect appropriate for age, normal judgement, euthymic mood. Assessment/Plan 77 yo F here for new patient evaluation for recurrent UTIs BBS 24 1. Frequent UTI (N39.0: Urinary tract infection, site not specified) Per PCP note, pt has [address] AP w/ Con 03/10/20 - a stone in a vein adjacent to the Rt ureter rather than a ureteral stone, may represent a phlebolith rather than a renal stone. +C&S 04/14/22 >100k E Coli +C&S 06/09/22 pansensitive >100k E Coli +C&S 10/27/22 pansensitive >100k E Coli Cardinal Sx of UTI: odor to urine & increased urgency w/pain and burning. Tries to ensure she empties completely, sits a little longer and pushes/strains. PVR 15mL Hx of Hysterectomy. Denies leaking. Denies family Hx of Bladder Cancer. Pt states that prior to this year she would get an infection every once and a while, started worsening at the beginning of this year. Pt states that she was put on a chcf abx which has helped a lot. Pt was given script for Bactrim 800-160mg QD, took for about 3 mos, have not gotten an infection since. Pt cannot recall any change in diet when she stopped having UTI. Pt states that she tries to drink a bottle of water a day, do to having history of bouts of A-fib. 10% of women over the age of 60 will have recurrent urinary tract infection - 2 or more urinary tract infection in 6 months or 3 or more per year. We discussed the presence of vaginal atrophy on physical examination. I explained the lack of estrogen secondary to menopause causes changes in the vaginal epithelium that can predispose to lower urinary tract symptoms, vaginal discomfort, urinary incontinence, dyspareunia, and recurrent urinary tract infections. Because of these changes to the vaginal tissues the lactobacilli (good bacteria) fail to thrive. The pH of the vagina rises making it easier for harmful bacteria to colonize the vagina. -Start Estrace cream 0.1 mg/g. Apply pea-sized amount around the opening of the urethra and surrounding tissue 3 times per week at night for one month then 2 times per week after for maintenance. SEsdiscussed. Rx sent to pharm on file. Pt to stop cream and notify office if she experiences breast tenderness and/or bleeding. -OTC UTI Preventive Supplements- start with cranberry pills 2. 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 Occasional visible blood w/UTI. UA today shows moderate blood. Discussed doing a hematuria workup if the pt would like to. Pt states that she is not worried aboutthis and does not see the need to have t (more content not included)...Kettering HealthComment on above:Result Comment: Electronically Signed By: Alfreda Miller MD\.br\Date and Time Signed: 02/11/23 12:13EDT\.br\Electronically Co-Signed By: Karlee Ramos\.br\Date and Time Co-Signed: 02/11/23 11:16 [id number] Hospital Discharge instructions Patient Education 02/11/2023 11:16:08 Kegel Exercises Kegel Exercises Kegel exercises can help strengthen your pelvic floor muscles. The pelvic floor is a group of muscles that support your rectum, small intestine, and bladder. In females, pelvic floor muscles also help support the uterus. These muscles help you control the flow of urine and stool (feces). Kegel exercises are painless and simple. They do not require any equipment. Your provider may suggest Kegel exercises to: Improve bladder and bowel control. Improve sexual response. Improve weak pelvic floor muscles after surgery to remove the uterus (hysterectomy) or after , in females. Improve weak pelvic floor muscles after prostate gland removal or surgery, in males. Kegel exercises involve squeezing your pelvic floor muscles. These are the same muscles you squeezewhen you try to stop the flow of urine or keep from passing gas. The exercises can be done while sitting, standing, or lying down, but it is best to vary your position. Ask your health care provider which exercises are safe for you. Do exercises exactly as told by your health care provider and adjust them as directed. Do not begin these exercises until told by your health care provider. Exercises How to do Kegel exercises: 1.Squeeze your pelvic floor muscles tight. You should feel a tight lift in your rectal area. If youare a female, you should also feel a tightness in your vaginal area. Keep your stomach, buttocks, and legs relaxed. 2.Hold the muscles tight for up to 10 seconds. 3.Breathe normally. 4.Relax your muscles for up to 10 seconds. 5.Repeat as told by your health care provider. Repeat this exercise daily as told by your health care provider. Continue to do this exercise for at least 4 6 weeks, or for as long as told by your health care provider. You may be referred to a physical therapist who can help you learn more about how to do Kegel exercises. Depending on your condition, your health care provider may recommend: Varying how long you squeeze your muscles. Doing several sets of exercises every day. Doing exercises for several weeks. Making Kegel exercises a part of your regular exercise routine. This information is not intended to replace advice given to you by your health care provider. Make sure you discuss any questions you have with your health care provider. Document Revised: 08/29/2021 Document Reviewed: 08/29/2021 [employer] Patient Education 2022 [email or web address]. Follow Up Care 11/06/2022 15:31:52 With:Paul VILLEGAS, PERLA Araujo, URO Address: When:Within 3 Month(s) [facility] 07-17-2023 Evaluation note* Encounter Date Diagnosis Assessment Notes Treatment Notes Treatment Clinical Notes Nov, Dysuria (ICD-10 - R30.0) [facility] 06-29-2023 Evaluation note* Encounter Date Diagnosis Assessment Notes Treatment Notes Treatment Clinical Notes Oct, Frequent UTI (ICD-10 - N39.0) Pt requests Urology referral. Discussed also getting CT to move along process. Oct, Dyshidrotic eczema (ICD-10 - L30.1) Will treat with steroid cream prn [facility] Other 06-26-2023 Evaluation note* Encounter Date Diagnosis Assessment Notes Treatment Notes Treatment Clinical Notes Oct, Dysuria (ICD-10 - R30.0) [facility] 05-11-2023 Miscellaneous Notes* Telephone Encounter - Matt Adams RN - 09/11/2022 11:43 AM EDT [facility] is [facility] Matt Adams RN * Telephone Encounter - Matt Adams RN - 09/11/2022 9:51 AM EDT Pt called to request yearly Mammogram order I have pended order as previously completed Pt requests to fax to Nori Lema [phone] BRM/HM: please review and sign if agreeable Matt Adams RN [facility]* Encounter Date Diagnosis Assessment Notes Treatment Notes Treatment Clinical Notes Aug, Dysuria (ICD-10 - R30.0) [facility] 03-16-2023 Evaluation note* Encounter Date Diagnosis Assessment Notes Treatment Notes Treatment Clinical Notes Jul, Acute bronchitis due to other specified organisms (ICD-10 - J20.8) Bronchitis: Care Instructions material was printed Pt is acutely sick with acute complicated bronchitis Recommend: Antibiotics: Azithromycin 50 mg po daily for 5 days Cough: Benzonatate Jul, Migraine syndrome (ICD-10 - G43.909) chronic - addressed adequately with imitrex at 25mg Jul, OAB (overactive bladder) (ICD-10 - N32.81) chronic and improved on present med [facility] Other 02-20-2023 Evaluation note* Encounter Date Diagnosis Assessment Notes Treatment Notes Treatment Clinical Notes Jun, Dysuria (ICD-10 - R30.0) [facility] 02-03-2023 Evaluation note* Encounter Date Diagnosis Assessment Notes Treatment Notes Treatment Clinical Notes Jun, OAB (overactive bladder) (ICD-10 - N32.81) [facility] 02-01-2023 Evaluation note* Encounter Date Diagnosis Assessment Notes Treatment Notes Treatment Clinical Notes Jun, OAB (overactive bladder) (ICD-10 - N32.81) Patient request to try new medication reviewed side effect profile. Patient declines urology or ECOLOGY PROFESSOR referral at this time. Jun, Essential hypertension (ICD-10 - I10) reviewed and updated medications she will follow-up with cardiology in Jun, Hypokalemia (ICD-10 - E87.6) Reviewed and updated medications. Discussed foods that are high in potassium Jun, Right lumbar pain (ICD-10 - M54.50) Follow-up with Dr. Rivera as scheduled in June. She does have limping with her gait. [facility] Other 08-18-2022 Note [id number]08-17-2022 NoteEducation Materials POST OPERATIVE TOTAL HIP DISCHARGE INTRUCTIONS Physical Therapy: -WBAT to operative hip -focus balance, transfers and steady gait. -use a walker -Do Not Do Active Hip Abduction Exercises On Either Hip -ok to do ROM on knee. SURGEON'S WRITTEN INSTRUCTIONS: Change dressing daily. When clean and dry for 2 days may leave open to air. Mary hose (compression stockings) for 6 weeks Physical therapy as prescribed May shower, no tub bath. Do not rub/scrub incision. Wash gently Take Aspirin 325mg daily to prevent blood clots, coated or uncoated per patient preference. WHAT YOU SHOULD KNOW AFTER YOUR OPERATION: If you need pain pills, start before the pain becomes intense. Pain pills are frequently less upsetting to your stomach if you take them with food such as crackers or bread. If you have excessive or persistent pain, swelling, bleeding, nausea, vomiting or any other problems, you should first call your surgeon for advice. If you are unable to contact your surgeon, seek help from the emergency room. FOR THE PREVENTION OF DVT AFTER LOWER EXTREMITY SURGERY What is a DVT? There is always the risk of DVT after lower extremity surgery. DVT, or deep vein thrombosis, is a blood blot in a major vein that may partially or completely block the flow of blood. The clot occurs in the legs or pelvis, in areas where blood flow is slow, or in an injured blood vessel. DVT can be life-threatening should pieces of the clot break away and travel to the lungs. This is called pulmonary embolism What are the symptoms of DVT? The area affected by the blood clot may become swollen and painful, and possibly turn red as the normal flow of blood is blocked. You may also develop edema, which is the build up of fluid in the skin tissues surrounding the clot. If the clot is somewhere other than your leg, there may be no physical signs of DVT. If the clot breaks away and travels to your lungs, you may experience shortness of breath and chest pain. If this occurs you should call your doctor immediately or go to the emergencyroom. How can I prevent DVT? You should keep active. Moving the ankle and foot and bending the knee as tolerated when you are inbed and walking as tolerated. Take medication, especially the Aspirin, as prescribed by your doctor. What should I do if I think I have a DVT? You should call your doctor or go to the emergency room any time you have a sudden and unusual shortness of breath that is not related to exercise, exertion or anxiety. If you have swelling with redness and pain in your leg, you should call your doctor immediately. If there is concern then a test called ?Venous Doppler? can be done to rule of a DVT.[facility] [id number] [facility] Clinical Discharge Summary PERSON INFORMATION Name NGUYEN BURNS Age 76 Years 1945 Sex FEMALE Language Persian PCP Raudel VILLEGAS, Elliot Nayak Marital Status Med Service Observation Acct# Arrival 12/16/2021 06:48:01 Visit Reason Surgery- Right Total Hip Acuity LOS 000 47:46 Address: [address] [place] [address] Comment: PROVIDER INFORMATION VITALS INFORMATION Vital Sign Triage Latest Temp Oral 36.5 DegC 37.4 DegC Temp Temporal Temp Intravascular Temp Axillary Temp Rectal 02 Sat 100 % 99 % Respiratory Rate 16 br/min 20 br/min Peripheral Pulse Rate 60 bpm 70 bpm Apical Heart Rate Blood Pressure 150 mmHg / 95 mmHg 122 mmHg / 69 mmHg Comment: MEDICAL INFORMATION Allergy Info: traMADol; Tape; Vicodin; Levaquin; Ultram; morphine; penicillin; codeine Medication List: Medications That Were Updated - Follow Below Instructions Other Medications Updated: omeprazole (omeprazole 40 mg oral delayed release capsule) 1 cap(s) Oral 2 times a day. Medications to Continue That Have Not Changed Other Medications apixaban (Eliquis 5 mg oral tablet) 1 tab(s) Oral 2 times a day. atenolol (atenolol 50 mg oral tablet) 1.5 tab(s) Oral every day. cholecalciferol (Prevagen) 1 tab(s) Chewed every day. ferrous sulfate (FeroSul 325 mg (65 mg elemental iron) oral tablet) 1 tab(s) Oral every day. hydroCHLOROthiazide (hydroCHLOROthiazide 25 mg oral tablet) 1 tab(s) Oral every day. lisinopril (lisinopril 20 mg oral tablet) 1 tab(s) Oral every day. melatonin (melatonin 10 mg oral tablet) 3 tab(s) Oral once a day (at bedtime) as needed as needed for insomnia. naproxen (Aleve Easy Open Arthritis 220 mg oral tablet) 1 tab(s) Oral Every 12 hours scheduled timeas needed as needed for pain. oxyCODONE (oxyCODONE 5 mg oral tablet) 1 tab(s) Oral Every 6 hours as needed for pain for 5 Days. Refills: 0. potassium chloride (potassium chloride 10 mEq oral tablet, extended release) 1 tab(s) Oral 2 times a day. temazepam (temazepam 30 mg oral capsule) 1 cap(s) Oral At bedtime as needed for sleep. Comment: Lab and Radiology Results Laboratory or Other Results This Visit (last charted value for your 12/16/2021 visit) Hematology 12/17/2021 5:20 AM Hct: 33.6 % -- Normal range between ( 33.7 and 40.4 ) Hgb: 10.8 gm/dL -- Normal range between ( 11.3 and 15.9 ) MCH: 30 pg -- Normal range between ( 24 and 34 ) MCHC: 32 gm/dL -- Normal range between ( 26 and 37 ) MCV: 95 fL -- Normal range between ( 81 and 100 ) MPV: 8.3 fL -- Normal range between ( 6.3 and 10.2 ) Platelet: 209 x103/mcL -- Normal range between ( 138 and 427 ) RBC: 3.55 x106/mcL -- Normal range between ( 3.70 and 5.30 ) RDW: 15.5 % -- Normal range between ( 11.5 and 15.0 ) WBC: 8.2 x103/mcL -- Normal range between ( 3.5 and 10.5 ) Auto Eos %: 0.4 % -- Normal range between ( 0.9 and 4.0 ) Auto Lymph %: 18 % -- Normal range between ( 14 and 48 ) Auto Neut %: 70 % -- Normal range between ( 44 and 88 ) Eos Abs#: 0.0 x103/mcL -- Normal range between ( 0.0 and 0.4 ) Lymph Abs#: 1.5 x103/mcL -- Normal range between ( 1.3 and 2.9 ) [place] Abs#: 0.9 x103/mcL -- Normal range between ( 0.0 and 0.8 ) Auto Baso %: 0.2 % -- Normal range between ( 0.2 and 2.0 ) Auto [place] %: 11 % -- Normal range between ( 1 and 12 ) Baso Abs#: 0.0 x103/mcL -- Normal range between ( 0.0 and 0.2 ) Neut Abs#: 5.8 x103/mcL -- Normal range between ( 1.5 and 9.2 ) Chemistry 12/17/2021 5:20 AM Creatinine Level: 0.98 mg/dL -- Normal range between ( 0.60 and 1.30 ) BUN: 23 mg/dL -- Normal range between ( 8 and 26 ) Chloride Level: 100 mmol/L -- Normal range between ( 101 and 111 ) CO2: 29 mmol/L -- Normal range between ( 21 and 32 ) Glucose Level: 127.0 mg/dL -- Normal range between ( 74.0 and 118.0 ) Osmolality: 275 mOsm/L Potassium Level: 3.9 mmol/L -- Normal range between ( 3.6 and 5.1 ) Sodium Level: 135.0 mmol/L -- Normal range between ( 136.0 and 144.0 ) Anion Gap: 10.0 mmol/L -- Normal range between ( 5.0 and 19.0 ) Calcium Level: 8.9 mg/dL -- Normal range between ( 8.9 and 10.3 ) BUN/Creat Ratio: 23.0 -- Normal range between ( 4.6 and 16.2 ) eGFR AA: >60 mL/min/1.73m2 eGFR Non AA: 55 mL/min/1.73m2 Diagnostic Radiology 12/16/2021 1:45 PM XR Hip Complete Right: XR Hip Complete Right Radiology Report 12/16/2021 4:37 PM Radiology Report: Radiology Report DIET & ACTIVITY Patient Activity Level: As Tolerated Patient Diet: Regular Patient Activity Restrictions: DISCHARGE INFORMATION Discharge Disposition: Discharge Location: DEPART REASON INCOMPLETE INFORMATION PATIENT EDUCATION INFORMATION Instructions: Nicole PAULA [facility] PT instructions (MHAHUDKALLIVELASQUEZ) Follow up: With: Address: When: Melchor Nicole [address], [address] [place] [address] Business (1) 12/24/2021 2:30 AM With: Address: When: Elliot Starks [address] (more content not included)...[facility] [id number] Betty sheets called pt to inform pt that she needs to stop eliquis after today 12/12 d/t her procedure is scheduled as a spinal, pt verbalizes understanding. Pt does not know the reason why Dr Rivera had scheduled her as a spinal anesthesia. Dr Hernández was informed of this. [Electronically Signed on: 12/12/2021 12:34 EDT] Maddison Simons RN [Verified on: 12/12/2021 12:34 EDT] Maddison Simons [facility]07-25-2022 NoteDrLobo Trevizo reviews PAT information and testing results. Ok to proceed with procedure, no orders. [Electronically Signed on: 11/25/2021 12:23 EDT] Steffanie Damian RN [Verified on: 11/25/2021 12:23 EDT] Steffanie Damian [facility]05-26-2022 Miscellaneous Notes* Telephone Encounter - Andrew Choi MD - 09/26/2021 5:13 PM EDT Okay to change to screening mammogram. Order signed. ASIYA Ford * Telephone Encounter - Elton Dominguez RN - 09/26/2021 2:33 PM EDT Pt scheduled for diagnostic mamm tomorrow @ [facility]. Hospital calls to ask if this could be changed to a screening mammogram since the pt is greater than 2 years from diagnosis? Elton Dominguez RN [facility] Future Appointments Appointment Date:05/27/2023 08:45:00 AM Scheduled Provider:Alfreda Miller MD Location:[facility] Appointment Type:URO Office Visit [facility] evaluation note* Diagnosis Encounter for screening mammogram for malignant neoplasm of breast- Primary Other screening mammogram documented in this encounter [facility] note* Diagnosis Malignant neoplasm of upper-outer quadrant of left breast in female, estrogen receptor positive (HCC)- Primary documented in this encounter [facility] noteNo InformationNort Cloud[employer] Other Evaluation note* Diagnosis Encounter for screening mammogram for malignant neoplasm of breast- Primary Other screening mammogram documented in this encounter [facility] noteNo assessment information availablePremier Health [facility] Work Phone: Hispqff general Narrative - Reported* Type Description Date Medical History Dysuria Medical History Osteoarthritis of right hip Medical History Paroxysmal atrial fibrillation Medical History Insomnia Medical History Essential hypertension Medical History Fatigue Medical History Lumbar back pain Medical History PROLAPSE, VAGINAL WALL, RECTOCEL E Medical History Hip pain, right Medical History Acute URI Medical History COVID Medical History Acute UTI (urinary tract infecti on) Medical History Migraine syndrome Medical History Pain of right scapula Medical History Abnormal mammogram of left breas t Medical History Hx of breast cancer Surgical History CHOLECYSTECTOMY 2009 Surgical History Right hip replacement 12/16/2021 Hospitalization History SEE SURGICAL HX [facility] Hospital course Narrative No data available for this section [facility] [employer] progress note No data available for this section [facility] reason for referral (narrative)* Diagnostic Procedure Only (Routine) - Pending Review Specialty Diagnoses / Procedures Referred By Juan wren Referred To Contact [facility] Diagnoses Encounter for screening mammogram for malignant neoplasm of breast Procedures AUGUSTINA SCREENING W YAW SCREENING DIGITAL BREAST TOMOSYNTHESIS BI SCREENING MAMMOGRAPHY BI 2-VIEW BREAST INC Andrew Miguel MD [facility] [employer] [facility] [place] [address] [facility] [employer] [place], [place] [id number] Referral ID Status Reason Start Date Expiration Date Visits Requested Visits Authorized [id number] Pending Review Auto-Generat ed Referral 09/26/2021 10/26/2022 1 1 [facility] Diagnostic Procedure Only (Routine) - Pending Review Specialty Diagnoses / Procedures Referred By Juan wren Referred To Contact [facility] Diagnoses Encounter for screening mammogram for malignant neoplasm of breast Procedures AUGUSTINA SCREENING W YAW SCREENING DIGITAL BREAST TOMOSYNTHESIS BI SCREENING MAMMOGRAPHY BI 2-VIEW BREAST INC Andrew Miguel MD [address] [place] [address] [place] [address] [facility] [address] [place] [address] Referral ID Status Reason Start Date Expiration Date Visits Requested Visits Authorized [id number] Pending Review Auto-Generat ed Referral 09/11/2022 10/11/2023 1 1 [facility] Summary Purpose Family History No Family History Records FoundNo Family History Records FoundNo Family History Records FoundNo Family History Records FoundNo Family History Records FoundNo Family History Records FoundNo Family History Records Found No data available for this section No Family History Records Found Advance Directives No Advanced Directives Records FoundNo Advanced Directives Records FoundNo Advanced Directives Records FoundNo Advanced Directives Records FoundNo Advanced Directives Records FoundNo Advanced Directives Records FoundNo Advanced Directives Records FoundNo Advanced Directives Records Found Reason for Referral Reason *FU 11/12 Jason office Diagnosis 1 Frequent UTI (N39.0) Referral Organization [facility] Referring Provider First Name Elliot Referring Provider Last Name Raudel Referring Provider Specialty Family Medi cine Referred Organization [facility] Referred Provider ALFREDA MILLER Referred Address [address] [place],[address] Referred Provider Specialty Urology Referral Priority Routine General Notes Victoria Lisa 11:03:05 AM >received today, notes attached, along with labs and ins, waiting for notes to be locked before faxing Victoria Lisa 11/05/2022 02:44:05 PM >referral faxed Additional Source Comments INFORMATION SOURCE (unrecogn ized section and content) DATE CREATED AUTHOR 10/28/2017 [facility] DATE CREATED AUTHOR AUTHOR'S ORGANIZ ATION 03/21/2020 [facility] DATE CREATED AUTHOR AUTHOR'S ORGANIZ ATION 09/13/2021 [facility] dical Specialist DATE CREATED AUTHOR AUTHOR'S ORGANIZ ATION 01/13/2022 [facility] DATE CREATED AUTHOR AUTHOR'S ORGANIZ ATION 06/11/2022 [facility] DATE CREATED AUTHOR AUTHOR'S ORGANIZ ATION 09/13/2022 [facility] DATE CREATED AUTHOR AUTHOR'S ORGANIZ ATION 11/18/2022 [facility] DATE CREATED AUTHOR AUTHOR'S ORGANIZ ATION 02/18/2023 [facility] Source Comments (unrecognize d section and content) In the event this informatio n is protected by the Federal Confidentiality of Alcohol and Drug Abuse Patient Records regulations: The Federal rules restrict any use of the information to criminally investigate or prosecute any alcohol or drug abuse patient.[facility] the event this information is protected by the Federal Confidentiality of Alcohol and Drug Abuse Patient Records regulations: The Federal rules restrict any use of the information to criminally investigate or prosecute any alcohol or drug abuse patient.[facility] Center[facility] the event this information is protected by the Federal Confidentiality of Alcohol and Drug Abuse Patient Records regulations: The Federal rules restrict any use of the information to criminally investigate or prosecute any alcohol or drug abuse patient.[facility] Reason for Visit (unrecogniz ed section and content) sinus congestion Reason Comments Radiology Mammogram Reason Comments Lab Orders Reason Comments Orders Care Teams (unrecognized sec tion and content) Coat Cutter Relationship Specialty Start Date End Date Elliot Starks MD [address] [place] [address] PCP - General Family Practice 11/26/15 Coat Cutter Relationship Specialty Start Date End Date Elliot Starks MD [address] [place] [address] PCP - General Family Practice 11/26/15 Coat Cutter Relationship Specialty Start Date End Date Elliot Starks MD [facility] [place] [address] PCP - General Family Medicine 11/26/15 Team Status: Inactive Member Role Status Dates Elliot Starks MD Attending Provider Active Goals (unrecognized section and content) Goals may be documented in a n alternate section FOR RECORDS PERTAINING TO PATIENTS WHO ARE OR HAVE BEEN ENROLLED IN A CHEMICAL DEPENDENCY/SUBSTANCEABUSE PROGRAM, SOME INFORMATION MAY BE OMITTED. This clinical summary was aggregated from multiple sources. Caution should be exercised in using it in the provision of clinical care. This summary normalizes information from multiple sources, and as a consequence, information in this document may materially change the coding, format and clinical context of patient data. In addition, data may be omitted in some cases. CLINICAL DECISIONS SHOULD BE BASED ON THE PRIMARY CLINICAL RECORDS. [facility] [employer] provides no warranty or guarantee of the accuracy or completeness of information in this document.
[2023-05-14 18:22] VITALS: BP 146/56; PULSE 63; RESP 18; TEMP 36.6; O2SAT 95; BMI 28.2
--- NOTE | 2023-05-14 18:30 | CT_ITS ---
[address] [address] Patient Name: NGUYEN MARQUEZ MRN: [id number] date: 1945 Sex: F Assigned Patient Location: ED.MAIN Current Patient Location: ED.MAIN Accession/Order Number: [id number] Exam Date: 05/14/2023 18:45 Report Date: 05/14/2023 19:40 At the request of: MATT SEYMOUR Procedure: CT cervical spine wo con EXAMINATION: CT cervical spine wo con TECHNIQUE: Axial CT images were obtained through the cervical spine. Sagittal and coronal reformatted images were also obtained. Dose reduction techniques were achieved by using automated exposure control and/or adjustment of mA and/or kV according to patient size and/or use of iterative reconstruction technique. HISTORY: Neck pain. COMPARISON: None. FINDINGS: Bones: No fracture Alignment: No traumatic subluxation. Degenerative straightening of the upper cervical spine. Arthritic changes: Moderate spondylosis of the mid to lower cervical spine. Disc spaces: No gross disc herniation given limitation of CT scan. Soft tissues: No soft tissue mass or large hematoma. CT/CT cervical spine wo con IMPRESSION: No acute fracture or subluxation. Electronically authenticated by: ANABEL GONZALEZ Date: 05/14/2023 19:40
--- NOTE | 2023-05-14 18:37 | ED_ITS ---
HPI - Neck Pain/Injury General Chief Complaint: Neck Pain/Injury Stated Complaint: NECK PAIN Time Seen by Provider: 05/14/23 18:18 Source: patient Mode of arrival: Wheelchair History of Present Illness HPI Narrative: Patient is a 77-year-old female with a history of chronic low back pain who presents to the ER for the evaluation of posterior neck pain radiating into the bilateral shoulders for the last several days. She states she saw her chiropractor yesterday and believes that he made it worse, she is now having difficulty moving her head at the neck. She denies any mechanism of injury or trauma. No peripheral paresthesias. She took baclofen earlier today without improvement. She states she takes this only for her low back. She is not prescribed any other pain medication. Related Data Home Medications Medication Instructions Recorded Confirmed apixaban 5 mg tablet (Eliquis) 5 mg PO BID 10/28/22 05/14/23 atenolol 50 mg tablet 75 mg PO DAILY 10/28/22 05/14/23 baclofen 10 mg tablet 20 mg PO TID 10/28/22 05/14/23 hydrochlorothiazide 25 mg tablet 25 mg PO DAILY 10/28/22 05/14/23 lisinopril 20 mg tablet 20 mg PO DAILY 10/28/22 05/14/23 neuveria vitamin DAILY 10/28/22 omeprazole 20 mg tablet,delayed 20 mg PO DAILY 10/28/22 05/14/23 release potassium 10 mg PO DAILY 10/28/22 05/14/23 temazepam 30 mg capsule 30 mg PO QPM 10/28/22 05/14/23 trospium 20 mg tablet 20 mg PO Q12H 04/02/23 05/14/23 Previous Rx's Medication Instructions Recorded methylprednisolone 4 mg tablets in See Rx Instructions .Route 05/14/23 a dose pack (Medrol (Ryan)) .COMPLEX #21 ea Allergies Allergy/AdvReac Type Severity Reaction Status Date / Time acetaminophen [From Vicodin] Allergy Severe Verified 05/14/23 18:50 hydrocodone [From Vicodin] Allergy Severe Verified 05/14/23 18:50 codeine Allergy Unknown Verified 04/02/23 07:33 levofloxacin [From Levaquin] Allergy Unknown Verified 04/02/23 07:33 morphine Allergy Unknown Verified 04/02/23 07:33 Penicillins Allergy Unknown Verified 04/02/23 07:33 tramadol Allergy Unknown Verified 04/02/23 07:33 Review of Systems ROS Constitutional Denies: fever or chills Ears, nose, mouth, and throat Denies: throat pain or nasal congestion Cardiovascular Denies: chest pain Respiratory Denies: shortness of breath or cough Gastrointestinal Denies: nausea or vomiting Genitourinary Denies: painful urination Musculoskeletal Reports: back pain and neck pain; Denies: extremity pain, extremity swelling, joint pain or limited range of motion Integumentary/Breast Denies: rash Neurological Denies: headache PFSH PFSH Medical History Atrial fibrillation ?I48.91 - Unspecified atrial fibrillation (ICD-10) Cataract ?H26.9 - Unspecified cataract (ICD-10) Former smoker ?Z87.891 - Personal history of nicotine dependence (ICD-10) H/O malignant neoplasm of breast ?Z85.3 - Personal history of malignant neoplasm of breast (ICD-10) Hearing deficit ?H91.90 - Unspecified hearing loss, unspecified ear (ICD-10) Hypertension ?I10 - Essential (primary) hypertension (ICD-10) Low back pain ?M54.50 - Low back pain, unspecified (ICD-10) Neck pain ?M54.2 - Cervicalgia (ICD-10) Osteoarthritis ?M19.90 - Unspecified osteoarthritis, unspecified site (ICD-10) Upper back pain ?M54.9 - Dorsalgia, unspecified (ICD-10) Surgical History H/O breast surgery ?Z98.890 - Other specified postprocedural states (ICD-10) H/O cardiac catheterization ?Z98.890 - Other specified postprocedural states (ICD-10) H/O eye surgery ?Z98.890 - Other specified postprocedural states (ICD-10) H/O foot surgery ?Z98.890 - Other specified postprocedural states (ICD-10) H/O shoulder surgery ?Z98.890 - Other specified postprocedural states (ICD-10) H/O total hip arthroplasty ?Z96.649 - Presence of unspecified artificial hip joint (ICD-10) H/O: hysterectomy ?Z90.710 - Acquired absence of both cervix and uterus (ICD-10) History of cholecystectomy ?Z90.49 - Acquired absence of other specified parts of digestive tract (ICD- 10) Social History Smoking status: Never smoker Exam Narrative Exam Narrative: Gen.: Awake, alert, in no distress Head: Normocephalic, atraumatic ENT: Moist mucous membranes; Diffuse tenderness of the posterior cervical spine with diffuse tenderness of the paraspinal muscles of the cervical spine and trapezius muscles bilaterally Respiratory: No respiratory distress Extremities: Moves extremities equally, Able to use her upper extremities to pull herself forward Psych: Normal mood and affect Neuro: No focal neuro deficit Skin: Warm, dry, intact Constitutional Vital Signs, click to edit/add: Last Vital Signs Temp 97.9 F 05/14/23 18:22 Pulse 63 05/14/23 18:22 Resp 18 05/14/23 18:22 BP 146/56 H 05/14/23 18:22 Pulse Ox 95 05/14/23 18:22 O2 Del Method Room Air 05/14/23 18:22 Course Vital Signs Vital signs: Vital Signs Temperature 97.9 F 05/14/23 18:22 Pulse Rate 63 05/14/23 18:22 Respiratory Rate 18 05/14/23 18:22 Blood Pressure 146/56 H 05/14/23 18:22 Pulse Oximetry 95 05/14/23 18:22 Oxygen Delivery Method Room Air 05/14/23 18:22 Temperature 97.9 F 05/14/23 18:22 Pulse Rate 63 05/14/23 18:22 Respiratory Rate 18 05/14/23 18:22 Blood Pressure 146/56 H 05/14/23 18:22 Pulse Oximetry 95 05/14/23 18:22 Oxygen Delivery Method Room Air 05/14/23 18:22 MDM - Neck Pain/Injury MDM Narrative Medical decision making narrative: CT of the cervical spine with mild degenerative changes and no evidence of acute process. Patient medicated with IV fluids, Dilaudid, Norflex, Solu-Medrol. She would benefit from outpatient steroids, she has baclofen at home. She is also on benzodiazepines and in pain management. Patient was reevaluated by attending physician prior to discharge and reviewed results. We will add an additional dose of Toradol 1 time here in the ER as she is on Eliquis, we will avoid NSAIDs for home. She started on a Medrol Dosepak and sent home with 2 Percocet from the ER. Follow-up with PCP and pain management and return to the ER if symptoms change or worsen. Medical Records Attestation: I reviewed the patient's medical records. Lab Data Attestation: I reviewed the patient's lab results. Imaging Data Ct cervical spine: Attestation: I have reviewed the pertinent imaging results. Radiologist's impression: ITS Impressions Cervical Spine CT 05/14/23 18:30 IMPRESSION: No acute fracture or subluxation. Electronically authenticated by: ANABEL OGNZALEZ Date: 05/14/2023 19:40 Discharge Plan Discharge Chief Complaint: Neck Pain/Injury Clinical Impression: Acute neck pain Patient Disposition: Home, Self-Care Time of Disposition Decision: 20:01 Condition: Good Prescriptions / Home Meds: New methylprednisolone [Medrol (Ryan)] 4 mg tablets,dose pack See Rx Instructions .ROUTE .COMPLEX Qty: 21 0RF Rx Instructions: Taper as directed No Action trospium 20 mg tablet 20 mg PO Q12H lisinopril 20 mg tablet 20 mg PO DAILY atenolol 50 mg tablet 75 mg PO DAILY Eliquis 5 mg tablet 5 mg PO BID omeprazole 20 mg tablet,delayed release (DR/EC) 20 mg PO DAILY temazepam 30 mg capsule 30 mg PO QPM hydrochlorothiazide 25 mg tablet 25 mg PO DAILY neuveria vitamin DAILY potassium 10 mg PO DAILY baclofen 10 mg tablet 20 mg PO TID Rx Instructions: 1/2 to 1 tab three times daily Instructions: Acute Neck Pain (ED) Stand Alone Forms: Portal Instructions Referrals: Marine Glass MD [Primary Care Provider] - 1 week
[2023-05-14] MEDS: 0.9 % SODIUM CHLORIDE 500 ML IV (19:33)
[2023-05-14] MEDS: ONDANSETRON PF 4 MG/2 ML VIAL IV (19:36)
[2023-05-14] MEDS: METHYLPREDNISOLONE SOD SUCC PF 125 MG/2 ML VIAL IVP (19:38)
[2023-05-14] MEDS: ORPHENADRINE 60 MG/ 2 ML VIAL IV (19:43)
[2023-05-14] MEDS: HYDROMORPHONE HCL 0.5 MG/0.5 ML SYRINGE IV (19:46)
[2023-05-14] MEDS: OXYCODONE HCL/ACETAMINOPHEN 5MG/325MG 2 TAB PO (20:30)
[2023-05-14] MEDS: KETOROLAC TROMETHAMINE 30 MG/ML VIAL IM (20:35)
== END 2023-05-14 20:51 | disposition home or self-care (01) ==
PROVIDERS: Emergency Provider Emergency Medicine; PCP Family Medicine
DX: M54.2 Cervicalgia (principal); I48.91 Unspecified atrial fibrillation; H91.90 Unspecified hearing loss, unspecified ear; I10 Essential (primary) hypertension; M19.90 Unspecified osteoarthritis, unspecified site; G89.29 Other chronic pain; M54.50 Low back pain, unspecified; Z98.890 Other specified postprocedural states; Z87.891 Personal history of nicotine dependence; Z79.01 Long term (current) use of anticoagulants; Z79.899 Other long term (current) drug therapy; Z85.3 Personal history of malignant neoplasm of breast; Z96.649 Presence of unspecified artificial hip joint; Z90.710 Acquired absence of both cervix and uterus; Z90.49 Acquired absence of other specified parts of digestive tract
CPT/HCPCS: 72125; 96372; 96374; 96375; 99285; J1170; J1885; J2360; J2405; J2930

== ENCOUNTER 2023-05-16 05:34 | Emergency (ER) | payer MEDICARE, SELFPAY ==
[2023-05-16] VITALS (18 sets, daily range): BP systolic 110–144; BP diastolic 48–77; PULSE 57–98; RESP 11–26; TEMP 36.4; O2SAT 90–97; BMI 28.3
--- NOTE | 2023-05-16 05:36 | ED.NECK1 ---
HPI - Neck Pain/Injury General Chief Complaint: Neck Pain/Injury Stated Complaint: NECK PAIN Time Seen by Provider: 05/16/23 05:35 History of Present Illness HPI Narrative: patient seen for neck spasm. Empire better after treatment. Last PM increased neck pain and also left chest pain. chest pain resolved but neck pain continues. No radicular symptoms, dyspnea or nausea, increased pain with rotation of her head to the left or right. Worse when turning to the right MD complaint: Reports neck pain Related Data Home Medications Medication Instructions Recorded Confirmed apixaban 5 mg tablet (Eliquis) 5 mg PO BID 10/28/22 05/14/23 atenolol 50 mg tablet 75 mg PO DAILY 10/28/22 05/14/23 baclofen 10 mg tablet 20 mg PO TID 10/28/22 05/14/23 hydrochlorothiazide 25 mg tablet 25 mg PO DAILY 10/28/22 05/14/23 lisinopril 20 mg tablet 20 mg PO DAILY 10/28/22 05/14/23 neuveria vitamin DAILY 10/28/22 omeprazole 20 mg tablet,delayed 20 mg PO DAILY 10/28/22 05/14/23 release potassium 10 mg PO DAILY 10/28/22 05/14/23 temazepam 30 mg capsule 30 mg PO QPM 10/28/22 05/14/23 trospium 20 mg tablet 20 mg PO Q12H 04/02/23 05/14/23 Previous Rx's Medication Instructions Recorded methylprednisolone 4 mg tablets in See Rx Instructions .Route 05/14/23 a dose pack (Medrol (Ryan)) .COMPLEX #21 ea Allergies Allergy/AdvReac Type Severity Reaction Status Date / Time acetaminophen [From Vicodin] Allergy Severe Verified 05/16/23 05:37 hydrocodone [From Vicodin] Allergy Severe Verified 05/16/23 05:37 codeine Allergy Unknown Verified 05/16/23 05:37 levofloxacin [From Levaquin] Allergy Unknown Verified 05/16/23 05:37 morphine Allergy Unknown Verified 05/16/23 05:37 Penicillins Allergy Unknown Verified 05/16/23 05:37 tramadol Allergy Unknown Verified 05/16/23 05:37 Review of Systems ROS Status of ROS 10 or more systems reviewed and unremarkable except as noted in history and below [facility] Medical History Atrial fibrillation ?I48.91 - Unspecified atrial fibrillation (ICD-10) Cataract ?H26.9 - Unspecified cataract (ICD-10) Former smoker ?Z87.891 - Personal history of nicotine dependence (ICD-10) H/O malignant neoplasm of breast ?Z85.3 - Personal history of malignant neoplasm of breast (ICD-10) Hearing deficit ?H91.90 - Unspecified hearing loss, unspecified ear (ICD-10) Hypertension ?I10 - Essential (primary) hypertension (ICD-10) Low back pain ?M54.50 - Low back pain, unspecified (ICD-10) Neck pain ?M54.2 - Cervicalgia (ICD-10) Osteoarthritis ?M19.90 - Unspecified osteoarthritis, unspecified site (ICD-10) Upper back pain ?M54.9 - Dorsalgia, unspecified (ICD-10) Surgical History H/O breast surgery ?Z98.890 - Other specified postprocedural states (ICD-10) H/O cardiac catheterization ?Z98.890 - Other specified postprocedural states (ICD-10) H/O eye surgery ?Z98.890 - Other specified postprocedural states (ICD-10) H/O foot surgery ?Z98.890 - Other specified postprocedural states (ICD-10) H/O shoulder surgery ?Z98.890 - Other specified postprocedural states (ICD-10) H/O total hip arthroplasty ?Z96.649 - Presence of unspecified artificial hip joint (ICD-10) H/O: hysterectomy ?Z90.710 - Acquired absence of both cervix and uterus (ICD-10) History of cholecystectomy ?Z90.49 - Acquired absence of other specified parts of digestive tract (ICD-10) Social History Smoking status: Never smoker Exam Constitutional Vital Signs, click to edit/add: Last Vital Signs Temp 97.5 F L 05/16/23 05:35 Pulse 65 05/16/23 06:15 Resp 20 05/16/23 06:15 BP 115/66 05/16/23 06:15 Pulse Ox 93 L 05/16/23 06:15 O2 Del Method Room Air 05/16/23 05:45 Common normals: average body habitus, oriented x3, no limitations, healthy appearing, alert and well nourished [facility] Common normals: normocephalic and head/scalp atraumatic Eye Common normals: EOMs intact bilaterally and conjunctivae normal Neck & C-Spine Other: tenderness right paracervical muscles. Limited rotation of head to right or left due to spasmodic pain of the neck Respiratory Common normals: normal respiratory effort, no retractions and no use of accessory muscles Cardio Common normals: regular rate, regular rhythm, S1 normal heart sound and S2 normal heart sound Extremity Common normals: normal to inspection and full ROM Neuro Common normals: oriented x3, moves all extremities and no focal motor deficits Psych Appearance: grossly normal Course Vital Signs Vital signs: Vital Signs Blood Pressure 144/77 H 05/16/23 05:20 Temperature 97.5 F L 05/16/23 05:35 Pulse Rate 65 05/16/23 06:15 Respiratory Rate 20 05/16/23 06:15 Blood Pressure 115/66 05/16/23 06:15 Pulse Oximetry 93 L 05/16/23 06:15 Oxygen Delivery Method Room Air 05/16/23 05:45 MDM - Neck Pain/Injury MDM Narrative Medical decision making narrative: patient presents with torticollis. Seen for the same 2 days ago. also episode of left sided chest pain last PM that has not recurred. very limited rotation of her neck due to spasmodic pain. IV established and patient treated with solumedrol, valium and magnesium. Cardiac labs ordered . EKG NSR without acute changes labs returned and BUN and creat elevated. Soft collar ordered for neck spasm but they are too large for the patient will plan 2 sets of cardiac enzymes and transfer care to Dr Sanchez at change of shift Lab Data Labs: Lab Results 05/16/23 Range/Units 05:30 WBC 13.3 H (4.0-11.0) 10^3/uL RBC 4.14 L (4.20-5.40) 10^6/uL Hgb 13.4 (12.0-16.0) g/dL Hct 39.8 (36.0-48.0) % MCV 96.1 (81.0-99.0) fL MCH 32.4 (26.7-34.0) pg MCHC 33.7 (29.9-35.2) g/dL RDW 11.9 (11.0-15.0) % Plt Count 256 (150-450) 10^3/uL MPV 9.2 L (9.5-13.5) fL Neut % (Auto) 72.3 (43.0-75.0) % Lymph % (Auto) 19.5 L (20.5-60.0) % Coffee % (Auto) 7.5 (1.7-12.0) % Eos % (Auto) 0.1 L (0.9-7.0) % Baso % (Auto) 0.2 (0.2-2.0) % Neut # (Auto) 9.6 H (1.4-6.5) 10^3/uL Lymph # (Auto) 2.6 (1.2-3.8) 10^3/uL Coffee # (Auto) 1.0 H (0.3-0.8) 10^3/uL Eos # (Auto) 0.0 (0.0-0.7) 10^3/uL Baso # (Auto) 0.0 (0.0-0.1) 10^3/uL Abs Immat Gran (auto) 0.05 H (0.00-0.03) 10^3/uL Imm/Tot Granulo (auto) 0.4 (0.0-0.5) % Sodium 141 (136-145) mmol/L Potassium 3.6 (3.5-5.1) mmol/L Chloride 102 (98-107) mmol/L Carbon Dioxide 29.8 (21.0-32.0) mmol/L Anion Gap 12.8 BUN 39.0 H (7.0-18.0) mg/dL Creatinine 1.19 H (0.55-1.02) mg/dL Est GFR ( Amer) 54 L (>=60) Est GFR (Non-Af Amer) 44 L (>=60) BUN/Creatinine Ratio 32.8 Glucose 129 H (74-106) mg/dL Calcium 10.0 (8.5-10.1) mg/dL Troponin I High Sens 7.7 (4.0-51.3) pg/mL Discharge Plan Discharge Patient Disposition: Still a Patient
--- NOTE | 2023-05-16 05:40 | XR_ITS ---
[facility] [place] [id number] Patient Name: NGUYEN MARQUEZ MRN: [id number] date: 1945 Sex: F Assigned Patient Location: ER Current Patient Location: ED.MAIN Accession/Order Number: [id number] Exam Date: 05/16/2023 06:00 Report Date: 05/16/2023 06:55 At the request of: MICHELLE NATHAN Procedure: XR chest 1V EXAM: XR chest 1V HISTORY: Right-sided neck pain COMPARISON: Chest x-ray, 06/09/2012. TECHNIQUE: AP upright portable chest x-ray. FINDINGS: The heart, mediastinum and pulmonary vascularity are within normal limits. The lungs and pleural spaces are clear. The bony thorax appears intact. Left axillary surgical clips are unchanged. XR/XR chest 1V IMPRESSION: Nonacute chest. Electronically authenticated by: ROSALINO SIDHU Date: 05/16/2023 06:55
[2023-05-16 05:49] LABS: Basophils Percent Auto 0.2 % (0.2-2.0); Eosinophils Percent Auto 0.1 % (0.9-7.0); Hematocrit 39.8 % (36.0-48.0); Hemoglobin 13.4 g/dL (12.0-16.0); Immature Granulocytes Abs Auto 0.05 10^3/uL (0.00-0.03); Immature Granulocytes Pct Auto 0.4 % (0.0-0.5); Lymphocytes Absolute Auto 2.6 10^3/uL (1.2-3.8); Lymphocytes Percent Auto 19.5 % (20.5-60.0); Mean Corpuscular HGB Conc 33.7 g/dL (29.9-35.2); Mean Corpuscular Hemoglobin 32.4 pg (26.7-34.0); Mean Corpuscular Volume 96.1 fL (81.0-99.0); Mean Platelet Volume 9.2 fL (9.5-13.5); Monocytes Percent Auto 7.5 % (1.7-12.0); Neutrophils Absolute Auto 9.6 10^3/uL (1.4-6.5); Neutrophils Percent Auto 72.3 % (43.0-75.0); Platelet Count 256 10^3/uL (150-450); Red Blood Count 4.14 10^6/uL (4.20-5.40); Red Cell Distribution Width 11.9 % (11.0-15.0); White Blood Count 13.3 10^3/uL (4.0-11.0)
[2023-05-16] MEDS: DIAZEPAM 10 MG/2 ML SYRINGE 5 MG IV (05:49)
[2023-05-16] MEDS: MAGNESIUM SULFATE IN WATER 2 GM/50 ML PREMIX IV (05:50)
[2023-05-16] MEDS: METHYLPREDNISOLONE SOD SUCC PF 125 MG/2 ML VIAL IVP (05:50)
--- OUTSIDE RECORDS SUMMARY | 2023-05-16 05:57 | XMS_ITS | CCD ---
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 Name Role Phone PHYSICIAN, DEFAULT Unavailable Unavailable PHYSICIAN, DEFAULT Unavailable Unavailable Elliot Starks MD Primary Care Provider [phone] ELLIOT STARKS Primary Care Unavailable ANETA EDUARDO Admitting Unavailable ANETA EDUARDO Attending Unavailable ANETA EDUARDO Consulting Unavailable RAUDEL, DR ELLIOT Nayak Admitting Unavailable RAUDEL, DR ELLIOT Nayak Attending Unavailable RAUDEL, DR ELLIOT Nayak Primary Care Unavailable STARKS, DR ELLIOT Nayak Consulting Unavailable RAUDEL, DR ELLIOT Nayak Primary Care Unavailable PAY, DR MANN Consulting Unavailable PAY, DR MANN Admitting Unavailable PAY, DR MANN Attending Unavailable DERDUONG, LUANA Consulting Unavailable KNABE, PETER Consulting Unavailable Elliot Starks Unavailable Elliot Starks MD Primary Care Provider [phone] MD Elliot Starks Attending Provider Elliot Starks Admitting Unavailable Elliot Starks Attending Unavailable ELLIOT STARKS Primary Care Physician Alfreda Miller Attending Unavailable ELLIOT STARKS Referring Unavailable Alfreda Miller Attending Unavailable Elliot Starks MD Primary Care Provider [phone] SELF, SELF Referring Unavailable MIKO OHARA Attending Unavailable ELLIOT STARKS Primary Care Unavailable MIKO OHARA Attending Unavailable MIKO OHARA Referring Unavailable ELLIOT STARKS Primary Care Unavailable MIKO OHARA Attending Unavailable MIKO OHARA Referring Unavailable ELLIOT STARKS Primary Care Unavailable Allergies Allergy Classification Reported Allergen(s) Allergy Type Date of Onset Reaction(s) Facility (3 sources) Acetaminophen / HYDROcodone Drug Allergy 03-19-20 17 Unknown [facility] (16 sources) Baclofen; 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: [baclofen] Drug Allergy 03-19-20 17 Unknown [facility] (6 sources) Codeine; 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: [codeine] Drug Allergy 08-09-19 09 Unknown [facility] (4 sources) levoFLOXacin; 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: [levofloxacin] Drug Allergy 03-19-20 17 Unknown [facility] (17 sources) Morphine; 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: [morphine] Drug Allergy 08-09-19 09 [facility] (4 sources) oxyCODONE Drug Allergy 12-03-19 16 [facility] (2 sources) Penicillins Drug Allergy 12-03-19 16 [facility] (1 source) Baclofen Drug Allergy [facility] (1 source) Codeine Drug Allergy [facility] (13 sources) levoFLOXacin; 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: [Levaquin] Drug Allergy Unknown [facility] (1 source) Morphine Drug Allergy 05-04-18 94 [facility] (1 source) oxyCODONE Drug Allergy 05-04-19 05 [facility] (1 source) Penicillins Drug allergy (disorder) 05-04-18 93 [facility] (2 sources) traMADol; 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: [Ultram] Drug Allergy [facility] (11 sources) Codeine Drug Allergy Unknown [facility] Other (13 sources) Penicillin; 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: [penicillin] Drug Allergy Unknown [facility] (13 sources) traMADol; 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: [tramadol] Drug Allergy 05-14-19 24 Unknown [facility] (12 sources) zolpidem; 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: [zolpidem] Drug Allergy Unknown [facility] (1 source) Penicillins Drug Allergy 12-03-19 16 [facility] (1 source) Morphine; 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: [Morphine Sulfate] Drug Allergy [facility] (1 source) zolpidem; 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: [Ambien] Drug Allergy [facility] (1 source) Non-steroidal anti-inflammatory agent Drug allergy 02-02-20 13 Unknown [facility] Other (1 source) sulfADIAZINE Drug Allergy Comment:Sulfa [facility] Other (1 source) Ultram *ANALGESICS - OPIOID* Propensity to adverse reactions Unknown [facility] Other (1 source) Vioxx *ANALGESICS - ANTI-INFLAMMATORY * Propensity to adverse reactions Unknown [facility] Other (1 source) Penicillin G Benzathine & Proc Drug allergy Unknown [facility] Other (1 source) Morphine Sulfate (Concentrate) *ANALGESICS - OPIOI Propensity to adverse reactions Unknown [facility] Other (1 source) Allergies Reconciled Propensity to adverse reactions Unknown [facility] Other (1 source) patient allergy list reviewed by nurse or physicia Propensity to adverse reactions 02-02-20 13 Comment:Done [facility] Other (1 source) Vicodin *ANALGESICS - OPIOID* Propensity to adverse reactions Unknown [facility] Other (1 source) calcitonin Drug allergy Unknown [facility] Other (1 source) Penicillins Propensity to adverse reactions to drug 05-14-19 24 [facility] Medications Current Medications Medication Drug Class(es) Dates Sig (Normalized) Sig (Original) apixaban 5 mg oral tablet (16 sources) Factor Xa Inhibitor Start: 08-31-2017 Eliquis 5 mg oral tablet Refills(s) 0 Start Date: 02/11/23 Status: Ordered apixaban 2.5 MG tablet Take by mouth every 12 hours. 0 Active Comment on above: Take 5 mg by mouth t wice daily. aspirin 325 mg oral tablet (1 source) Platelet Aggregation Inhibitor, Nonsteroidal Anti-inflammatory Drug take 1 tablet by mouth once daily Aspirin 325 MG tablet Take 1 tablet by mouth daily. 0 Active azithromycin 250 mg oral tablet (5 sources) Macrolide Antimicrobial Start: 03-30-20 Azithromycin 250 MG as directed Orally 2 tabs po today, then 1 tab daily x 4 more days for 5 Mar, Active Start: 07-17-2022 Azithromycin 2 50 MG as directed Orally 2 tabs po today, then 1 tab daily x 4 more days for 5 Jul, Active baclofen 10 mg oral tablet (1 source) gamma-Aminobutyric Acid-ergic Agonist take 1 tablet by mouth three times daily baclofen 10 MG tablet Take 1 tablet by mouth 3 times daily. 0 Active benzonatate 200 mg oral capsule (4 sources) Non-narcotic Antitussive Star t: 07-02 take 1 capsule by mouth every eight hours Benzonatate 200 MG 1 capsule Orally Three times a day for 10 day(s) Jul, Active estradiol 0.1 mg/ml vaginal cream (1 source) Estrogen Star t: 02-01 Estrace 0.1 mg/g Cream See Instructions, 42.5 gm, Refill(s) 3, apply pea size amount to urethra/inner vagina 3x/week x 1 month, then 2x/week for maintainence, [facility]/pharmacy #[id number], 165, cm, 02/11/23 10:41:00 EDT, Height/Length Dosing, 77.5, kg, 02/11/23 10:41:00 EDT, Weight Dosing Start Date: 02/11/23 Status: Ordered hydroCHLOROthiazide 25 mg oral tablet (13 sources) Thiazide Diuretic Star t: 02-01 take 1 mg by mouth once daily hydrochlorothiazide 25 mg Tab mg tab(s), Oral, Daily, Refills(s) 0 Start Date: 02/11/23 Status: Ordered Iron Chews (1 source) Star t: 02-01 take 1 mg by mouth once daily Iron Chews mg, Oral, Daily, Refills(s) 0 Start Date: 02/11/23 Status: Ordered lisinopril 20 mg oral tablet (16 sources) Angiotensin Converting Enzyme Inhibitor Star t: 02-02 lisinopril 20 mg Tab Refills(s) 0 Start Date: 02/11/23 Status: Ordered take 1 tablet by mouth once watson y Lisinopril 5 MG tablet Take 1 tablet by mouth daily. 0 Active melatonin 10 mg oral tablet (1 source) [...] Daily, # 30 tab(s), Refills(s) 11, Pharmacy: [facility]/pharmacy #[id number], 165, cm, 02/11/23 10:41:00 EDT, Height/Length [...] omeprazole 40 mg delayed release oral capsule (16 sources) Proton Pump Inhibitor Start: 02-11-2023 omeprazole 40 mg Cap-DR Refills(s) 0 Start Date: 02/11/23 Status: Ordered take 1 capsule by mouth once parker ly omeprazole [address] Take 1 capsule by mouth daily. 0 Active Omeprazole 40 mg TAKE 2 CAPSULES DAILY [...] tablet (8 sources) Cholinergic Muscarinic Antagonist Start: 06-06-19 take 1 tablet by mouth every twenty-four hours Ditropan XL 5 MG 1 tablet Orally Once a day for 90 days Jun, Active potassium & sodium phosphates 280-160-250 MG Pack (1 source) potassium & sodi um phosphates 280-160-250 MG Pack Take by mouth. 0 Active microencapsulated potassium chloride 20 meq extended [...] Dihydrofolate Reductase Inhibitor Antibacterial, Sulfonamide Antimicrobial Start: take 1 tablet by mouth every twenty-four hours Bactrim DS 800-160 MG 1 tablet Orally daily for 30 days Oct, Active Start: 08-11-2022 take 1 tablet by mirza th every twelve hours Bactrim DS 800-160 MG 1 tablet Orally Twice a day for 10 day(s) Oct, Active temazepam 30 mg oral capsule (16 sources) Benzodiazepine Start: 02-19-2023 take 1 capsule by mouth at bedtime Temazepam 30 MG 1 capsule Orally at bedtime for 90 days Feb, Active Start: 02-11-2023 temazepam 30 m g Cap Refills(s) 0 Start Date: 02/11/23 Status: Ordered Start: 08-23-2018 take 1 capsule by mo [facility] at bedtime Temazepam 30 MG 1 capsule Orally at bedtime for 90 days May, Active take 1 capsule by mo [facility] at bedtime as needed for sleep temazepam 15 MG capsule Take 1 capsule by mouth At bedtime as needed for Sleep. 0 Active triamcinolone acetonide 1 mg/ml topical cream (2 sources) Corticosteroid Start: 10-30-2022 Triamcinolone Acetonide 0.1 % 1 application Externally Twice a day for 7 days Oct, Active trospium chloride 20 mg oral tablet (2 sources) Cholinergic Muscarinic Antagonist take 1 tablet by mouth twice daily before mealtime trospium 20 MG tablet Take 1 tablet by mouth 2 times daily (take before meals). 0 Active Trospium Chlorid e Active Completed/Discontinued Medications Medication Drug Class(es) Dates Sig (Normalized) Sig (Original) atenolol 50 mg oral tablet (15 sources) beta-Adrenergic Eli Start: 08-31-2017 atenolol (TENORMIN) 50 mg tablet 25 mg twice daily. 0 08/31/2017 Active take 1 tablet by mouth once watson y Atenolol 25 MG tablet Take 1 tablet by mouth daily. 0 Active take 1 tablet by mouth once [...] atrial fibrillation, unspecified] Onset: 12-11-2016 03-24-2018 Chronic Complication of device; implant or graft (2 sources) Pain due to internal orthopedic prosthetic devices, implants and grafts, initial encounter; 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: [Pain due to internal orthopedic prosthetic devices, implants and grafts, initial encounter] Onset: 05-14-2023 Episodic E Codes: Natural/environment (1 source) Exposure to [...] fatigue; 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: [Fatigue] Onset: 06-11-2022 Episodic Osteoarthritis (16 sources) Unspecified osteoarthritis, unspecified site; 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: [Localized, primary osteoarthritis of the pelvic region and thigh] Onset: 06-11-2022 Chronic Other aftercare (1 source) Other intermediate card tender (current) drug therapy; 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: [OTH DOBIE MAN CURRENT DRUG THERAPY] Onset: 06-11-2022 Episodic Other aftercare (1 source) Long-term current use of anticoagulant; 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: [manager long term care (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 Comment on above: Performed By: #### E SR, CREACT #### [place] [address] Ambulatory Visit Summaryon 1 Ambulatory Visit Summary BETTIE BURNS :1945 Visit Date:02/11/2023 Ambulatory Visit Instructions Your Diagnosis Frequent UTI Microscopic hematuria Mixed incontinence Anticoagulated History of breast cancer Former smoker Tests Performed Urnls Dip Stick Auto w/o Microscopy POC [id number] Your Care Team Attending Physician - Paul [...] Follow-Up Appointments Thursday 8:45 AM EST With: Paul VILLEGAS, Alfreda Palacios Where: [facility] Lab Reportson 02-11-2023 Lab Reports [id number] 1#[id number] [facility] Patient Educationon 02-12-20 Patient Education Obstetrics and Gynecology Kegel Exercises [...] provider. Document Revised: 08/29/2021 Document Reviewed: 08/29/2021 [employer] Patient Education ? 2022 [employer] [facility] Physician Referralon 023 Physician Referral [id number] #[id number] [facility] Urinalysis - DIPSTICKon 10-03 Appearance (U) cloudy CPM [facility] Other Bilirubin Ql (U) Plain Vanilla ast [facility] Other Color (U) yellow [facility] Other Glucose Ql (U) Negative CPM [facility] Other Hemoglobin Ql (U) [facility] Other Ketones Ql (U) Negative CPM [facility] Other Leukocyte esterase Test strip Ql (U) moderate [facility] Other Nitrite Ql (U) Positive CPM [facility] Other pH (U) 5 [pH] [facility] Other Protein Ql (U) Negative CPM [facility] Other Specific gravity (U) [Rel density] 1.010 [facility] Other Urobilinogen (U) [Mass/Vol] off chart [facility] Other Urinalysis - DIPSTICK [facility] Other Urine Cultureon 10-27-2022 Bacteria identified Cx Nom (U) ORGANISM: Escherichia coli (O:ESCCOL) [place] Count >100,000 Aerobic AUBREY Charge (NMIC56) ----- [...] RESISTANT TO ALL B-LACTAM DRUGS. PERFORMED BY: [address] [place] [address] PATHOLOGIST RESEARCH QUALITY ASSURANCE ANALYST JOSE GUADALUPE FERGUSON M.D. Normal [facility] Comment on above: Performed By: #### C UU #### [place] [id number] [facility] Shane 09-11-2022 CNPN Telephone (HEMTSA) BETTIE BURNS ([id number]) 1945 F Date Time Provider Department 09/11/22 MATT ADAMS During your visit today, we recorded the following information about you: Matt Adams RN 09/11/2022 9:54 AM Signed Pt called to request yearly Mammogram order I have pended order as previously completed Pt requests to fax to Nori Lema [phone] [facility]/: please review and sign if agreeable RICARDO Lopez RN 09/11/2022 11:45 AM Signed [facility] is aware. Matt Adams [...] of breast [Z12.31] Order(s):AUGUSTINA SCREENING W YAW [[id number]] Order #: [id number] FUTURE Prescriptions as of 09/11/2022 - lisinopril [...] Status:Closed by MATT ADAMS on 09/11/22 [facility] Urinalysis - DIPSTICKon 02-2 Appearance (U) cloudy CPM [facility] Other Bilirubin Ql (U) Negative [facility] Other Color (U) pale yellow [facility] Other Glucose Ql (U) Negative CPM [facility] Other Hemoglobin Ql (U) non hem-trace [facility] Other Ketones Ql (U) trace CPM [facility] Other Leukocyte esterase Test strip Ql (U) moderate [facility] Other Nitrite Ql (U) Negative CPM [facility] Other pH (U) 5 [pH] [facility] Other Protein Ql (U) trace CPM [facility] Other Specific gravity (U) [Rel density] 1.005 [facility] Other Urobilinogen (U) [Mass/Vol] normal [facility] Other Urinalysis - DIPSTICK [facility] Other CULTURE URINEon 06-11-2022 CULTURE URINE Isolate [...] F Trimethoprim/Sulfame thoxazole <=20 S F Normal [facility] Comment on above: Performed By: #### U RCX #### [facility] [address] [place] [address] Dr. Florencio Narayanan CARDIAC AMBER ADMITon 023 CK [Catalytic activity/Vol] 44 U/L Normal 26-192 [facility] Comment on above: Performed By: #### C LILIAN LOZANO CMADM #### [facility] [address] [place] [address] Dr. Florencio Narayanan CK.MB [Mass/Vol] ng/mL Normal <=3.60 [facility] Comment on above: Performed By: #### C LILIAN LOZANO CMADM #### [facility] [address] [place] [address] [address] Florencio Narayanan HSTROP 14.6 pg/mL Normal 4.0-51.3 [facility] Comment on above: Result Comment: CUT- OFF POINTS HAVE BEEN ESTABLISHED BASED ON THE FOURTH UNIVERSAL DEFINITIONS OF MYOCARDIAL INFARCTION. THE UPPER REFERENCE LIMIT (URL) OF TROPONIN, DEFINED THE 99TH PERCENTILE OF cTnI DISTRIBUTION IN A REFERENCE POPULATION, HAS BEEN CONFIRMED THE DECISION THRESHOLD FOR NM DIAGNOSIS. Performed By: #### C LILIAN LOZANO CMADM #### [facility] [address] [address] [address] Florencio Narayanan UMER 109 ng/mL Critically high 9-82 [facility] Comment on above: Performed By: #### C LILIAN LOZANO CMADM #### [facility] [address] [place] [address] Dr. Florencio Narayanan CBC AUTO DIFFon 06-09-2022 BASO # 0.1 103/ul Normal 0.0-0.1 [facility] Comment on above: Performed By: #### C BC #### [facility] [address] [address] [address] Florencio Narayanan Basophils/100 WBC (Bld) 0.4 % Normal 0.2-2.0 [facility] Comment on above: Performed By: #### C BC #### [facility] [address] [place] [address] Dr. Florencio Narayanan EO # 0.0 103/ul Normal 0.0-0.7 [facility] Comment on above: Performed By: #### C BC #### [facility] [address] [place] [address] Dr. Florencio Narayanan Eosinophils/100 WBC (Bld) 0.2 % Critically low 0.9-7.0 [facility] Comment on above: Performed By: #### C BC #### [facility] [address] [place] [address] Dr. Florencio Narayanan Erythrocyte distribution width (RBC) [Ratio] 12.3 % Normal 11.0-15.0 [facility] Comment on above: Performed By: #### C BC #### [facility] [address] [address] [address] Florencio Narayanan Hematocrit (Bld) [Volume fraction] 38.4 % Normal 36.0-48.0 [facility] Comment on above: Performed By: #### C BC #### [facility] [address] [address] [address] Florencio Narayanan Hemoglobin (Bld) [Mass/Vol] 12.7 g/dL Normal 12.0-16.0 [facility] Comment on above: Performed By: #### C BC #### [facility] [address] [address] [address] Florencio Narayanan IG # 0.06 10e3/ul Critically high 0.00-0.03 [facility] Comment on above: Performed By: #### C BC #### [facility] [address] [place] [address] Dr. Florencio Narayanan IG % 0.5 % Normal 0.0-0.5 [facility] Comment on above: Performed By: #### C BC #### [facility] [address] [address] [address] Florencio Narayanan LYMPH # 1.0 103/ul Critically low 1.2-3.8 [facility] Comment on above: Performed By: #### C BC #### [facility] [address] [place] [address] Dr. Florencio Narayanan Lymphocytes/100 WBC (Bld) 8.4 % Critically low 20.5-60.0 [facility] Comment on above: Performed By: #### C BC #### [facility] [address] [place] [address] Dr. Florencio Narayanan MANUAL DIFF REQ NO Normal [facility] Comment on above: Performed By: #### C BC #### [facility] [address] [place] [address] Dr. Florencio Narayanan MCH (RBC) [Entitic mass] 32.4 pg Normal 26.7-34.0 [facility] Comment on above: Performed By: #### C BC #### [facility] [address] [place] [address] Dr. Florencio Narayanan MCHC (RBC) [Mass/Vol] 33.1 g/dL Normal 29.9-35.2 [facility] Comment on above: Performed By: #### C BC #### [facility] [address] [address] [address] Florencio Narayanan MCV (RBC) [Entitic vol] 98.0 fL Normal 81.0-99.0 [facility] Comment on above: Performed By: #### C BC #### [facility] [address] [place] [address] Dr. Florencio Narayanan MONO # 1.6 103/ul Critically high 0.3-0.8 [facility] Comment on above: Performed By: #### C BC #### [facility] [address] [place] [address] Dr. Florencio Narayanan Monocytes/100 WBC (Bld) 13.1 % Critically high 1.7-12.0 [facility] Comment on above: Performed By: #### C BC #### [facility] [address] [place] [address] Dr. Florencio Narayanan NEUT # 9.5 103/ul Critically high 1.4-6.5 [facility] Comment on above: Performed By: #### C BC #### [facility] [address] [place] [address] Dr. Florencio Narayanan Neutrophils/100 WBC (Bld) 77.4 % Critically high 43.0-75.0 [facility] Comment on above: Performed By: #### C BC #### [facility] [address] [place] [address] Dr. Florencio Narayanan Platelet mean volume (Bld) [Entitic vol] 9.4 fL Critically low 9.5-13.5 [facility] Comment on above: Performed By: #### C BC #### [facility] [address] [place] [address] Dr. Florencio Narayanan PLT 140 103/ul Critically low 150-450 [facility] Comment on above: Performed By: #### C BC #### [facility] [address] [address] [address] Florencio Narayanan RBC 3.92 106/ul Critically low 4.20-5.40 [facility] Comment on above: Performed By: #### C BC #### [facility] [address] [address] [address] Florencio Narayanan WBC 12.2 103/ul Critically high 4.0-11.0 [facility] Comment on above: Performed By: #### C BC #### [facility] [address] [address] [address] STROKE HEAD WOon [...] LUANA VILLAFANA Date: 2022-06-09 12:24 Normal [facility]on SARS-CoV-2 (COVID-19) RNA CHRISTOPHER+probe Ql (Unsp spec) Not detected Normal NOT DETECTED [facility] Comment on above: Result Comment: When diagnostic [...] for this test is supported by the Food Products Sales Representative of Health and Human Service's declaration that [...] used). Performed By: #### C VDTB #### [facility] [address] [place] [address] Dr. Florencio Narayanan ER URINE PROFILEon 3 Bilirubin Ql (U) Negative Normal NEGATIVE [facility] Comment on above: Performed By: #### Malini PIZANO UMICRO #### [facility] [address] [place] [address] Dr. Florencio Narayanan Clarity (U) CLEAR Normal CLEAR [facility] Comment on above: Performed By: #### Malini PIZANO UMICRO #### [facility] [address] [place] [address] Dr. Florencio Narayanan Color (U) LT. YELLOW Normal YELLOW [facility] Comment on above: Performed By: #### Malini PIZANO UMICRO #### [facility] [address] [place] [address] Dr. Florencio CONLEY A micrscopic examination will be performed if indicated. Normal [facility] Comment on above: Performed By: #### Malini PIZANO UMICRO #### [facility] [address] [place] [address] Dr. Florencio Narayanan Glucose Ql (U) Negative Normal NEGATIVE [facility] Comment on above: Performed By: #### Malini PIZANO UMICRO #### [facility] [address] [place] [address] Dr. Florencio Narayanan Hemoglobin Ql (U) LARGE Abnormal NEGATIVE [facility] Comment on above: Performed By: #### Malini PIZANO UMICRO #### [facility] [address] [place] [address] Dr. Florencio Narayanan Ketones Ql (U) TRACE Abnormal NEGATIVE [facility] Comment on above: Performed By: #### Malini PIZANO UMICRO #### [facility] [address] [place] [address] Dr. Florencio Narayanan LEUKOCYTES LARGE Abnormal NEGATIVE [facility] Comment on above: Performed By: #### Malini PIZANO, UMICRO #### [facility] [address] [place] [address] Dr. Florencio Narayanan Nitrite Ql (U) Positive Abnormal NEGATIVE [facility] Comment on above: Performed By: #### Malini PIZANO, UMICRO #### [facility] [address] [place] [address] Dr. Florencio Narayanan pH (U) 5.5 [pH] Normal 5-9 [facility] Comment on above: Performed By: #### Malini PIZANO, UMICRO #### [facility] [address] [place] [address] Dr. Florencio aNrayanan SPEC GRAVITY 1.010 Normal 1.005-<=1.025 [facility] Comment on above: Performed By: #### Malini PIZANO, UMICRO #### [facility] [address] [place] [address] Dr. Florencio Narayanan UA PROTEIN TRACE Normal NEGATIVE/ TRACE [facility] Comment on above: Performed By: #### Malini PIZANO UMICRO #### [facility] [address] [place] [address] Dr. Florencio Narayanan UR MICRO IND INDICATED Normal [facility] Comment on above: Performed By: #### Malini PIZANO, UMICRO #### [facility] [address] [place] [address] Dr. Florencio Narayanan Urobilinogen Qn (U) 0.2 {Zenia'U}/dL Normal 0.2 - 1.0 [facility] Comment on above: Performed By: #### Malini PIZANO, UMICRO #### [facility] [address] [place] [address] Dr. Florencio Narayanan LIPASEon 06-09-2022 Lipase [Catalytic activity/Vol] 68.0 U/L Critically low 73.0-393.0 [facility] Comment on above: Performed By: #### C MP, LIPA, CMADM #### [facility] [address] [place] [address] Dr. Florencio Narayanan PROF 14(COMP METB)on 023 Albumin [Mass/Vol] 2.5 g/dL Critically low 3.4-5.0 [facility] Comment on above: Performed By: #### C MAURICIO LOZANOA, CMADM #### [facility] [address] [address] [address] Florencio Narayanan Albumin/Globulin [Mass ratio] 0.6 {ratio} Normal [facility] Comment on above: Performed By: #### C BLAKE LIPA, CMADM #### [facility] [address] [address] [address] Florencio Narayanan ALP [Catalytic activity/Vol] 150 U/L Critically high 46-116 [facility] Comment on above: Performed By: #### C BLAKE LIPA, CMADM #### [facility] [address] [place] [address] Dr. Florencio Narayanan ALT [Catalytic activity/Vol] 27 U/L Normal 14-59 [facility] Comment on above: Performed By: #### C BLAKE LIPA, CMADM #### [facility] [address] [address] [address] Florencio Narayanan Anion gap [Moles/Vol] 12.8 mmol/L Normal [facility] Comment on above: Performed By: #### C BLAKE LIPA, CMADM #### [facility] [address] [place] [address] Dr. Florencio Narayanan AST [Catalytic activity/Vol] 31 U/L Normal 15-37 [facility] Comment on above: Performed By: #### C BLAKE LIPA, CMADM #### [facility] [address] [address] [address] Florencio Narayanan Bilirubin [Mass/Vol] 1.1 mg/dL Critically high 0.2-1.0 [facility] Comment on above: Performed By: #### C BLAKE LIPA, CMADM #### [facility] [address] [address] [address] Florencio Narayanan Calcium [Mass/Vol] 9.1 mg/dL Normal 8.5-10.1 [facility] Comment on above: Performed By: #### C MP, LIPA, CMADM #### [facility] [address] [address] [address] Florencio Narayanan Chloride [Moles/Vol] 95 mmol/L Critically low 98-107 [facility] Comment on above: Performed By: #### C MP, LIPA, CMADM #### [facility] [address] [place] [address] Dr. Florencio Narayanan CO2 [Moles/Vol] 29.4 mmol/L Normal 21.0-32.0 [facility] Comment on above: Performed By: #### C MP, LIPA, CMADM #### [facility] [address] [address] [address] Florencio Narayanan Creatinine [Mass/Vol] 1.34 mg/dL Critically high 0.55-1.02 [facility] Comment on above: Performed By: #### C MP, LIPA, CMADM #### [facility] [address] [place] [address] Dr. Florencio Narayanan EGFR-AF MACANESE 47 mL/min/1.73m2 Critically low >=60 [facility] Comment on above: Performed By: #### C MP, LIPA, CMADM #### [facility] [address] [place] [address] Dr. Florencio Narayanan EGFR-NON AF MACANESE 39 mL/min/1.73m2 Critically low >=60 [facility] Comment on above: Performed By: #### C MP, LIPA, CMADM #### [facility] [address] [place] [address] Dr. Florencio Narayanan Globulin (S) [Mass/Vol] 4.3 g/dL Normal [facility] Comment on above: Performed By: #### C MP, LIPA, CMADM #### [facility] [address] [place] [address] Dr. Florencio Narayanan Glucose [Mass/Vol] 118 mg/dL Critically high 74-106 T [facility] Comment on above: Performed By: #### C MP, LIPA, CMADM #### [facility] [address] [place] [address] Dr. Florencio Narayanan Potassium [Moles/Vol] 3.2 mmol/L Critically low 3.5-5.1 [facility] Comment on above: Performed By: #### C LILIAN LOZANO, KOKODM #### [facility] [address] [place] [address] Dr. Florencio Narayanan Protein [Mass/Vol] 6.8 g/dL Normal 6.4-8.2 [facility] Comment on above: Performed By: #### C MAURICIO LOZANOA, CMADM #### [facility] [address] [place] [address] Dr. Florencio Narayanan Sodium [Moles/Vol] 134 mmol/L Critically low 136-145 [facility] Comment on above: Performed By: #### C MAURICIO LOZANOA, CMADM #### [facility] [address] [place] [address] Dr. Florencio Narayanan Urea nitrogen [Mass/Vol] 29.0 mg/dL Critically high 7.0-18.0 [facility] Comment on above: Performed By: #### C MAURICIO LOZANOA, CMADM #### [facility] [address] [place] [address] Dr. Florencio Narayanan Urea nitrogen/Creatinin e [Mass ratio] 21.6 mg/mg Normal [facility] Comment on above: Performed By: #### C LILIAN LOZANO, CMADM #### [facility] [address] [place] [address] Dr. Florencio Narayanan URINE MICROSCOPIC ONLYon BACTERIA SMALL Abnormal NONE SEEN [facility] Comment on above: Performed By: #### Malini PIZANO UMICRO #### [facility] [address] [place] [address] Dr. Florencio Narayanan Bacteria identified Cx Nom (U) INDICATED Normal [facility] Comment on above: Performed By: #### Malini PIZANO UMICRO #### [facility] [address] [place] [address] Dr. Florencio Narayanan CAST NONE SEEN Normal NONE SEEN [facility] Comment on above: Performed By: #### Malini PIZANO UMICRO #### [facility] [address] [address] [address] Florencio Narayanan Crystals LM Nom (Urine sed) NONE SEEN Normal NONE SEEN [facility] Comment on above: Performed By: #### Malini PIZANO UMICRO #### [facility] [address] [place] [address] Dr. Florencio Narayanan Epithelial cells LM Ql (Urine sed) FEW Abnormal NONE SEEN /RARE [facility] Comment on above: Performed By: #### Malini PIZANO UMICRO #### [facility] [address] [place] [address] Dr. Florencio Narayanan MUCOUS NONE SEEN Normal NONE SEEN [facility] Comment on above: Performed By: #### Malini PIZANO UMICRO #### [facility] [address] [place] [address] Dr. Florencio Narayanan RBC 2-5 Abnormal 0-2 [facility] Comment on above: Performed By: #### Malini PIZANO UMICRO #### [facility] [address] [place] [address] Dr. Florencio Narayanan WBC 10-20 Abnormal NONE SEEN [facility] Comment on above: Performed By: #### Malini PIZANO UMICRO #### [facility] [address] [place] [address] Dr. Florencio Narayanan XR CHEST 2 Von [...] JOAQUÍN ATKINS Date: 2022-06-09 12:24 Normal [facility] CULTURE URINEon 04-16-2022 CULTURE URINE Isolate 1 [...] Trimethoprim/Sulfame thoxazole >=320 R F Normal [facility] Comment on above: Performed By: #### C #### [facility] [address] [place] [address] Dr. Florencio Narayanan Coding Summaryon 01-13-2022 Coding Summary HTMLBase 64 FowxktigTYu1xAj+PGhl YWQ+OE0RQSMrM13gaLUi hQ4OF8dNVG8GJRNSYCYY VE7LZO8qpNH7MUrsC6Nz biAv OxpzeDMtXC90EMm3VXE5 lEgxRTolpO5yqMXiJ3b7 ChKqTF93pC46DKdcGASl HmS0PsJmwkfthCQq M6aeFnJeeBHqHbo+PHRh YmxlIHdpZHRoPScxMDAl BpRtpHfgSU0mPs5aTQNk LWNvbGxhcHNlOiBj g8heKCDzIGhcJC3zeUfl T8HrbUB8BEVho7j4Js51 dHI+CVMxMDO0qBjuNPte c090WhYvn9vyXXY0 fRXyCXlxFKQ4M30bl9W1 TDPpVZAoOVE6gML5aL3k gKjamvyhT7WqpSSeCoK0 YTV9nWRwyU8qwCke ndsznQ1tMuy+S68WEB5N ZZUQVB9NOmg2I2XnUzmc dHI+NY69YMAtZK83fLTu uHSnk9powFr2PzBf XAXoGOE5wFfdFLwnl4Rm TGWkQ79erJMqy0S9IERz oAhptLNpRbOnqDH5tU2t SLmzzhmeo6vikccy Hkhwm1vtaj15wS71Z06f WTjmPPRvUQZ2YRNvFWLz pUkcyi2rxS0wSw3+IDxj d3mec6lwzTy2LiVd SUZljpNlfDozPAM0t9Sw Sz25J9CcxBcix1GgGqh8 yw30eUFoi5A5zSU1NOkf MTXosV5cKSobVpV5 DAHrPhUysV82rENwUBfp Kg0yrZfcrMizUS0vZROc lfbiSIDxrA7yVSQkiWXi pMsjJW3mIFGkdqnc q272VyIjYDT6LXHblSIj X6NznL3kUjCeKYTlUBGf L7BboVEdWLnrV711ROip JpE0YLJefhOuO2Qf KLOpyNmgIbB5v8O4Hg4P z6KbiwbsAOB5RNdrCJT3 EkCyOePhRsJ0T1TrSwc1 XGYjeKutWM9kS7Rk ZBCxswasvawpjSX5JPCr XQJgrT30xKPbCFodEj9k t1Z8y071TFUjQWElwP48 Hh6xwIefYYGycJUI eT0ssntzt4gbpbzwUoUi VCHqCNq5THa6DRRpqSsv QiFxCDJ7MqA1VNZ3oOEd mY9gbPfopvscuW5u Oyc+I18bfC7iDSP4NFG8 wccrJSNdxxRhER86FC77 F9FhSkrymLCcpAQ+PGRp mqWbqGmmZU3lLaTg w7qyg8YlCImhM4PnWMKs NZjaIpu6ESKlPKU3qTL7 uS4wCYNyEKixo7M0jEX5 I0ZbouPtst9db8hy DGFdXGvcZ48ngZCzv4D8 IUGpnPL3FDGdlMmwYhEi sC81Jzf+APKysPwzk2Jg Vvraw0lcz6jcxLj1 IjMwJSIgdmFsaWduPSJ0 c2NzKi26A27nSNlcHDOg LFFmHKEvNQHgsPwcdg2b eB3hVq9+PGNvbCB3 bHF1xX8cCGIdVoW1ROrn G778LdOtcBGeJchpw2uk s4frjWc8ZqAwKDFrfyLr dXidCBA0x3SzHg58 Q95dNKbwYNNuADNlOSHx WENtbKthri2ksQ0vLz7+ JM7eh3ccyf74cH24vOG+ OMHiAJU1jToyYZbq EISacC9lIYqmJoW8ZCWw CzKgdP60hXZaCIxqJz9m yNexdIhsUW4xNZZzbpfk u738KpOpf5rgWZRd oQWpZGxjZQY1U85qi7J2 DCOdWNDdHON7bDU6xP5o bGlnbjogbGVmdDsgdmVy yPflJFrdOXwzB608 IHRvcDsnPlBhdGllbnQg BjHgQBg8I8VcMrf3REYt vYtxGE0cfWPkMPlsFy4n pXvtwChyLG2uIFYf auvkj725RnOrh8nwSRVw kHSnIByyFHJ3N98ls2Y5 JKNaMROzVHZ7hWF0yD5d bGlnbjogbGVmdDsg jfHbhOgqSDcyBDjkB853 IHRvcDsnPkJpcnRoIERh yIQ6ZH88HU37aVYfp6Z3 uZP9J1XxIJWvlsno ylesgCW3VQDlEZCeiT50 Va0oqKdxOt7zMEBqOJQ4 PZIrdHLzB9AseX8iVlDx HFQkOLIwG7VayMKc AYqcD139LQafLtA6JHHj bpZnM4GzIAIzoQlvFhU9 d9M9Id4TC9P0ZT68NN86 kNOki6C6sUR7D2Ap XTIbqpvxhmdrhNP4WTCo PKDrbV91Ms5pdHsjQx5u YJHqIHU2YRNcvMHqB2Gb aR1xMaKpZVIxOHZi R1NlfTFsANfsN033FIba FrD0SAMjqpKdL9LeJGTh mProAtU9x6J9Od9ONIu2 AS03RM37iPRsq5K7 kSB6V4NcEDRaqjijufbk pLX0QEXpFAHpoS47Zd1b lSopVd3dBNVhMWL7EONq hOInI7MqgE5wNkJo WHKwPMYkW6LzlDKlDAfm I157APbaXsK6OXFnjlXc Y8AwEPOnaRfdGkQ3t5I3 Ls1CUFAtHK08HHE8 vJL0DP00UR57I2RkCvqp dGFibGU+PHRhYmxlIHdp ZHRoPScxMDAlJyBzdHls UW0wUc4nUOUiWMNp dNrilKDpWhOjp1woNNFv KWvkES2rxPekH5CyjJJ9 VDVhd9g9Kx86Q72kB8Mw dXA+VMHssUW0mNR4 rS7xBbIfIcA5ZYswK214 SsNobVWvKylos3oyv4ba pTx7ZgL5FQVvmgPrnSnm JWO0p7PcYy62B72d IHdpZHRoPSIxNSUiIHZh aYlclt7dvE7cMw3+PGNv lUC2kDK8rZ8oGrDcVhK3 HDcbI391KmPhlMSz Jxkbg9uau9sueEv9HoBr GIDnfrOslMvpYWW5k9Re Vs48L5JxpNred3DtMle6 ms03yKLux3L9yCG4 N6YuIIStvqqlkIUntZra FW9vYTLbxscnNYZzzP6t TGMaR9w5HsSbPyL5QRfc E9MjduS7YNCjeTYl WKuiTSW1J63lr5H0SIVe PHIyDPK5oJN7jX7cvIct bjogbGVmdDsgdmVydGlj RIcuUCxqI044CAVm yTwlQTQyfS5eKHEdxEUj mGxjJF4zRURixacaJrPL QUlMRVksIFRPTllBIEdB SBJ7A9OxIfu2CIZh nXkjZC8tuOZyQFjiKv3m tPkisSnmPS2sNRCtutgg VODkuD8mMSGdyNUznOah FH5iSPFcwteqo072 LpTmCBT8JUUwuCPjE6Zv sX5tIcRyWKUjGDGdP0Zm zOOhPQpxS881DZdcGgB0 RIRgybKeM0MsKADf aOrwPiZ0y3C5Sj3vIs9q Cq2wBZH9RH54UD55pBEk f6F3ePM5X3IfCZLpbrhg wuvlsBU9WOUuBYIh mJ50gCOwFYrsYh5pl6I8 a360CMPwZVRmnZ67Or4c cLniZJZiwRUJkR3bcryu r7esgstaHnFxWUIj ZTd9XZo8CQYxzFuyWcEk TAE3IfR6ANF2nLPdvE3q qNkzyguhyK1hYee+NzQg RNRwwaM6S1TfPnc9 FIJspTshLC5kxLFrXDmg Nm7vqMxfeNszRJ4xLPOz cdxkTYZilV3kENGeiKQq lJekRG0rRQJggcet d630VxPcXFO0ZXSraSYq E5PctG4yCoAmLEPdLBUj N3SklGOrYVkaA067RDvg ByJ5IBFgxiQwR9Ep ICJkvUuxKcY8z3E0Ac5W PH5TURQ0M3UlZnd0KELq nJmnRU7gbDGrGPsvQr3b kNckiSzbYB3hBTZy iajwRGUdhD8mZLRtyRXl rUltMN4kJLYebsvcy629 IjVvOFP2UBInrRKhR9Mg fY3uCcYkAZYqEXZb X7DddQScRXckV204MTlq GwH0YQJsimIxU3AgYMPp dWibAcK4z0H5Ux7CXNqd dGQ+RE42mg86J4Ek YhhoNul3SWUqNHM4rYC1 hL4hSGCrROtts8G2sLC2 R5WggfDrfb8xs7upVKCl RYmsB46dfLFts0V1 JFBwfIB9EEYvqEadKtJz yU56Car+PNRhtIqkt9Vg Vuqdx1dhd8yvmLb4TsYu JSIgdmFsaWduPSJ0 s2BvBm44N41qBYawLBKb TFZrKLWrSTIssXjsae2c zE1mLv7+JEOakAR6mBI5 eM9xMvEqUxI3JEfd E689OgSroZCpWjend3ju x0qvnVh4NoBqMZXfycEb aAldYGS0o9XwHa84S9Vw eDmdq2XmFcq7xv19 nHFrr0D9rJP8C4KwZMUm jzszjJFioKzoCU8nJJMh elbxUUIixU5rHJZuB2x2 JsYtPbO5EVgrM4Ik nkA6LDBnbAYwSASubPKX lR1voeumu4vijetfVsCk VJAgPIf6RKp4XINzlHyp IsOsIKN4NhP0TDP4 oKGqlE9icFamlzhttX7f Oyc+WTb4e6kvyXCpWX7u hMF7UU18CT53lTKpz8N2 eVJ3F8CrQUQexvyv mvqspNG4RKTkIKIspS97 Wb4nsIkwLf7zXVCtTUU0 HMDwwMZnU8CilY9vReSy HGXfMBVfM3MylGZw DBvcC719FWxjCmQ2NCZa orPyC0JhXQTdyQcmAwH1 u1N7Of3VJB28GN95GR44 bRQik5G7yWQ7D7Zq NPOhqvsjvfyvgHE3EFSz EWJlaG87Zw4ygBxhLi3x IDYdYAT2XAKkbAQiD9Ul nH6hNpOxWJAlJZVl K8KipCEcRNbpX866MQqk IdO3RMXscnNnY2KdJUVs eNlgScS4c3Y4Ce8TZm23 RD63FN70jFGep5C3 sKV2U0LcURThggsdnrld lZC5PIAiXFZxsM38Ju5c kRcgCu2xBTVnEKS9WSWh wQOrU0GfiI2vMwSa GOXlYJBzG9RhwKIsIEgp C565MVxiXhS8PCLirjJk A5PxNEUdrUalAuW3m2L9 Uu0HPNifkso2F6Oy PjwvdHI+EN00FEKeBC96 pGVzmTYtu9chfFk5DtAf SIQyKLR4eNtpZKlly0Jz MPPxN13tlCBoh2O3 IGN (more content not included)... [facility] Consent Formson 12-20-2021 Consent Forms [id number] [email or web address] [facility] Coding Summaryon 12-19-2021 Coding Summary HTMLBase 64 AybcjcgnAWx6kRo+PGhl YWQ+PL9TAWKgN74gkBLm eH0RZ4gFUE6GGPTFSYCK EV3DVX8isMH4WBfbB0Vn biAv MqzwbRHwNZ05EKd7MJG1 gOkmMQwrgF4jlTAlQ4n4 UpVnGA32tM37UBcjULOm XgY2TqJgbsiyzIJm P6qwMvQocJNvZyu+PHRh YmxlIHdpZHRoPScxMDAl OpCkwFvtHV8xRr3eBNCc LWNvbGxhcHNlOiBj h1fkHUMqTNhgMA6szOgx F3NozWL8QZXrn4o1Yx00 dHI+HMQkDVW9dHxoRQhm e613ElTlx5qyJRK5 xTYvWLbwEAY6J84kk0B3 TZHdAOAhKBR1bCW3yY2o zYxcybntR6EagZOcAyA3 AJW3xBVuiB7ykYwg xtgpoL8yLxg+J68AIV6K WIIVVI2JLgz7D7OgMuav dHI+XL64EYVwTQ46hWXj fUCgr2nirBt9EnHh XXFuQQQ8bJvqYFdlu8Sb XQBjV11ftJGtx9M2RCLa jAehiPOiRjYikGU0mH9k ZBciehtmr9lwlmzp Ctrxm0ephu11lL80K73f LXjjQZHqMVE1TWWgGYOw xMxhch9kdM0vXn7+IDxj k3cva0gdaZq0BqKk YRRykyBykNibJXG6l1Bs Pu53D6VogUxso8WaDzj1 my36kRSjp5W2pBJ9LKbk UNNsnB4zSNoiEuC3 ZKTqYtCrvZ72sFXmICpd Pm0mtZthfJwrLP6rARPm gzqlCNQyhF7gCDEcgGRp nYbgXV2rDBBkcgmi u648QeQoJIB8QFEteLFp P0PeyF5xEaFcGHHhTQPo V9WvhJBqTEstG966PGwd FgP7GQEayuTbZ0Ea YOGwqYgoBoQ6u0M8Qs1H w9QfefjcSET9NKacRQW3 TaO4OgYeWnG8U3SpMme4 EIZsmAvpMC2kP4Xq WXJuuivhwawlkJL1PRGo QNFbkH59sSOcVJhkXd0v q7A6d957TADyHSYllH36 Sj3kcExcEVUzbJNX rR7cfocux8edadcvPfBw WTMxXLl4UGe3LVHkdFyp KjXhWJW5PdQ3YFI2uVPn cE1ijSgxqjaetK9w Oyc+Z77zrN8kSXN8NWU1 kkwgUHWylxPxOP10QR64 W0JnApzwvDEhbBS+PGRp tpMjrZhvPS2eKjVq b9chp1IsPNwlA2MkHJHc DKmtTwn8UMUhYTE0kJR7 mA5vKWDvQBste0U3tYI5 O5MluvTzsk9dc3dd AHIoIAabN72bnLAih4U7 AGKwbQL9UJYjlCbvRfRa pH38Biu+JWAsjNxai3Uy Znkcg4ttk4epqJj7 IjMwJSIgdmFsaWduPSJ0 u6UxFt39C89sQKqaVOQn UGUuIFJhZHOuoYqfsp3b vL1bWo8+PGNvbCB3 jXD4qJ5rCHTnOqN8SPxw B560EeRfoBHhUttkx6ub z3akoTi3McYjIQAdvvKj pBdzYUX8k6AdDz25 B25yPUzdLKCcMHFcRTMn BZYgzUppcf0ltS6sAo7+ XH8kv2sgiq99eG94wAS+ GYJdCVK4uIpnYYhe HPJsgJ0hLSkqNxL9GHTb LhAbfA29sEDzHOlbDw6t zFolyGziUY2hGMKfatsw y128BwVyg4zjFWLi jWJuGNccHBG2D37lo9W7 YCNjHAGjQXP6tXD7uO7u bGlnbjogbGVmdDsgdmVy jImvTNepVPlyR483 IHRvcDsnPlBhdGllbnQg VnZaPOg3F7CqVyk4KARp vWhaYT7qnITjDGgjZd7h jPzojZxeKT0lHLUf qnydn452FqLdu3qyQUBi yDUzWEanEGZ1U26nz6P9 UZHxEECnNNP3mHX4qO4a bGlnbjogbGVmdDsg nnWkrXepHKukQPomZ415 IHRvcDsnPkJpcnRoIERh iHA8FY88FR39eROyo9W7 tBL0A5NmTGFkviqg edurmHQ5UTVtBGTreJ64 Ns6jvBzoMm3fMQTeRAI9 VXVeuCIqM7WhuA2rZmXt PUKgVVPvK9VlhQLl MHxtW319NTomAdL8QKCk gdGxY3ZwKJSssTkpBaL8 t7Y9Ul8TQ2D9MH97ZT52 gZBuc0G8lLP9V2Fh ARYqqpthgodwlCE3PTQa IGYboZ10Yl3mvWqbPw8i GRJnKNN5YDZeuXHoX4Wk rG3jHxOiLZEqYEYu H9MixLQzMQgbS283FFjm AmQ7TVQtllHlV4HxKIHl cTwdYjD6o5C6Do8YHYs1 MB66FI13zIJlv8W4 rNH7E2ZvDHEransvppbu vHR9KYEjOGOnpL62Qx3g jMymJq7xEBFdHOP5RLSd mDAxF1QpmH7bLbBh VNNyFOSxS5TzlDFbSGsb T743CVtxLyN8PBAyheNv G3OuVXTtcJtgOyM1b8G9 Cz9VZAQbHG67VJD5 mKG6BI32ZR54V9CqElye dGFibGU+PHRhYmxlIHdp ZHRoPScxMDAlJyBzdHls SG0uHt9kIHGsGORn hEmvmBLpTxVtd6hpHKLc IOeiDD5dsRhzO0VunAY9 ASFry5v8Yv43X80aW5Wb dXA+DVYdzRW4yQJ4 eS1gLjPsFeW0IOfxG258 UnVwwLFpArweo4aya9mo iMx8HuT8INFddkTogGmh ZOP9g6AcFz82Y01r IHdpZHRoPSIxNSUiIHZh pVknbu2enU5eFk1+PGNv xXS9kGI6bF4tJlVuDyP3 HSdpV327VuFltBMq Qorwt2daq1hyxXc2EtFt ISUrmrYgsRdcPAR0b9Wp Wv70L6LkvCfpf8HtXbz5 xs92xFTzq6F5sSM1 Y9QqFUZazmbmaTPibSwy VU7yIQVzawfuHIMuuW7v MRWlB8m5AbZgEjF3XRck G9GgfhW4FPZdpEPv BXgxGKF5G40yj8W0ORDn WYYtRDM8tSM0rL5tnFvl bjogbGVmdDsgdmVydGlj LGyxPAwpI076JVAd rOmgRFGjkL6tPTReiHBy lHceIZ9nJVXzngxsGaRM QUlMRVksIFRPTllBIEdB VTL1G7XvQbp0VRRq jNffKO9leVOeXLznRz4n uYrbuLzrNB0jGCCzplhj CTOwcJ7cVJWoiQFtsVbk KX5gWJBmltzzz356 FzLgQCT8SSVauHYmB8Ej sE1mLqMoKKNsIVNgV0Av fNDjDNavP099PAkxBhM1 JGKxjiGwM7OwXXDo gEmuGxS8p5C6It3dEq1j Ze3dIWC3AQ95LN98sXMl y5C8vHG3Z5JuMWFpquoj rtykoNN0KUChKNFy sQ75qZZxCMzkMl3cd1X8 e481OSOvSGKjmV56Bt2h qOboGGAkfLBGrM2fimvm j9lavvfrAqCoZAPa UTc5EZx9TNDrsUtuTdQl IAU6FkN4DWW4nGVypP8o xDzoigxwuM0oLrw+NzQg AWKgqhC6M1EcWlw8 YDUlhAkzLQ8xfLFvLVzw Od7zrEjakFnaFK4tXJWf eexhXFKoqZ6pZIIjqANi hKnsPA0jRFStempj a608NkHoKVA0ILVzdVVy A9LdfP4uKrTqJECfYCTl R8EucYDyIZvhP500VXmt PtD0NEHwpxKwR1Ih JRPxoNwvJfE9e3T5Sd8O RR3LHWA9U6EnYli9ICNy kTtrLV4opTCyUPnvJf6z eLydmElyNC7dHROk ufmzXTJuwD0sMGIioIOb mDnaXF2mRCAfqlowd593 ImGgURA3TTYvzCDjQ3Qq fQ2qTtYjOBVfDLFf W0RfgMFmAIknW933NOao VpD5SLYzmoJbC8HlZZRw dKhgAdF0v7K4Us2NAcEn cnZhdGlvbjwvdGQ+ LZ79vl70I4TuBhyzOvl2 RFKdBWJ0nVV8zM2nBMSy RXira7A4nUK3B0LgdxHo ja2rw1whXTFjFYmw U65qoXTrs2I1WCAtfBK6 WYJayNkdZbZnvC43Ktf+ TFNcmSlkq0UvHyitf7rg w8maqNj3XwFnYTRr ubZpoJpoXOD5c7QiGg98 X97mXAnuMEIaTTWjZBPw XYMyhAgyhh1edD3yOa5+ GXAfcOW8aTY9mW1l TcSpNaW1OWagC383NcTf bHFqLryrw3pky0tecHn3 IjIwJSIgdmFsaWduPSJ0 v4SjRs55W4DjuQrq d3XsEgw9ao76eSWyv0D3 pOC8Y6HgUQNzzlbcqNYv jRljJS8hLTUuorlgBMJv dG3bZXUuB8u0EmMh XrN8TByiG1AoqoE8EEUj aRMnWLQayEDEbC8jhjds n2loycfzPfXeYLDwAQn2 BLd1NINxaRfiOpMn DQX8PoB3OKD3sINmjM5t fUatdqymyA2xJmf+UGh5 l0zwsBCuLR1mkYS1TQ63 XY70kFWun2O9vSN9 X8CxMFOsxkhxfdndmRP4 KWAjAVZzeH00Eq4ykFkj Xw4uJEOvTRM7JQEvtPFe Q9VbzK8oGrSfSKDp ZEYrF1PhgRKtEValT878 VWadCnL7CMKcekLmF6On WGGvlCkeScX2x6A2Lb7U KS93SY27KI58gLYl m4M3nFA0J5NsRDQtgjxl eqtwnZH7VJDaKVZuhP98 Qw7erQwgYq5aIXIiDQY7 JMKleUOjX3XhtQ5a BxEeHROwOZJdK9AprTQs NHouU166SWlaLhB5NMEe caPhF0GmKPLenPruUlD1 h9B3Vb4ANq44JA34 DR51aMPzo8V7sLT5J1Xp CIEfyorqmnfikJJ3QNGe KNMggA12Fo6ddJqyIz5j UEYaRHU1BLJisRTg W7UuoY5qDlAfTVSzDMLu M6OzuOYmVKfxV390GVtr OxT8SCWgceCyF3SjSUSz fAmeBiD8j8Y5Uq1J KYxdupk7N7YzFgphbET+ RT38NUHpKK35dHQkbFBr x8cnrDu5EmLvUGErUDL6 fFzuBAlpx9JyOHTk Y29 (more content not included)... [facility] Consent Formson 12-19-2021 Consent Forms [id number] #1.00OTGTIFF [facility] Consultation/Specialist Note on 12-19-2021 Consultation/Speci alist Note [id number] #1.00OTGTIFF [facility] Electronic Messagingon 12-19 Electronic Messaging --- --- --- --- --- --- --- --- --- From: Charles ([email or web address]), Charles To: BETTIE BURNS Sent: 12/19/21 04:59:55 AM EDT Subject: Discharge Summary Ready to View A summary regarding your recent visit is available in the Documents section of your Health Record. [facility] Outside Recordson 12-19-2021 Outside Records [id number] #1.00OTGTIFF [facility] Provider Orderson 12-19-2021 Provider Orders [id number] [facility] [id number] [facility] 12-18-2021 Inpatient [place] [address] Patient Discharge Instructions Name: BETTIE BURNS : 1945 Patient Address: [address] [place] [address] Primary Care Provider: Name: Elliot Starks MD After you are discharged if you find you have any questions, please, call [phone] ext [phone] to speak to a nurse. The Pharmacy at [facility] is open Thursday through Thursday from 9A [...] alcohol and/or drug addiction problems; contact the [facility] 24/11 Crisis Hotline -Text 4HVTY to 698731. If you received any narcotics, sedation, or [...] business decisions or sign any legal documents [facility] would like to thank you for allowing us to assist you with your healthcare needs. The following includes patient education materials and information regarding your injury/illness. BETTIE BURNS has been given the following list of follow-up instructions, prescriptions, and patient education materials: Follow-up Instructions With: Address: When: Melchor Rivera [address] [place] [address] [address] [place] [address] Business (1) 12/24/2021 2:30 AM With: Address: When: Elliot Starks [address] [place] [address] [place] [address] Business (1) Medications During the [...] this list. (more content not included)... [facility] Post[facility] Record [facility] Phase II Record Summary Primary Physician: Melchor Rivera DO Finalized Date/Time: 12/18/21 09:06:00 Pt. Name: BETTIE BURNS /Sex: 1945 FEMALE Med Rec #: [id number] Physician: Melchor Rivera DO Financial #: [id number] Pt. Type: O Room/Bed: [facility]/ Admit/Disch: 12/16/21 06:48:01 - Institution: Phase [...] Signed By: Yareli Crouch RN 12/18/21 09:06 [facility] Pharmacy Noteon 12-18-2021 Pharmacy Note I have [...] [Verified on: 12/18/2021 09:03 EDT] [place] Pharmacy Note Home Medications (12) Active Aleve [...] [Verified on: 12/18/2021 08:42 EDT] Michael Franklin [facility] Progress Note - Nurseon 12-02 Progress Note - Nurse Discharged to home. Taken to awaiting vehicle via wheelchair. Belongings and walker given to patient. [Electronically Signed on: 12/18/2021 14:48 EDT] Tran Valenzuela RN [Verified on: 12/18/2021 14:48 EDT] Tran Valenzuela RN [facility] .Auto Diff 1on 12-17-2021 Auto [place] % 11 % Normal 05-15 [facility] Comment on above: Performed By: #### 7 [id number], [id number], [id number] #### [facility] (DEFAULT) [address] [place] [address] Baso Abs# 0.0 x10 Normal 0.0-0.2 [facility] Comment on above: Performed By: #### 7 [id number], [id number], [id number] #### [facility] (DEFAULT) [address] [place] [address] Basophils/100 WBC (Bld) 0.2 % Normal 0.2-2.0 [facility] Comment on above: Performed By: #### 7 [id number], [id number], [id number] #### [facility] (DEFAULT) [address] [place] [address] 11707 Eos Abs# 0.0 x10 Normal 0.0-0.4 [facility] Comment on above: Performed By: #### 7 [id number], [id number], [id number] #### [facility] (DEFAULT) [address] [place] [address] 91120 Eosinophils/100 WBC (Bld) 0.4 % Low 0.9-4.0 [facility] Comment on above: Performed By: #### 7 [id number], [id number], [id number] #### [facility] (DEFAULT) [address] [place] [address] 21945 Lymph Abs# 1.5 x10 Normal 1.3-2.9 [facility] Comment on above: Performed By: #### 7 [id number], [id number], [id number] #### [facility] (DEFAULT) [address] [place] [address] 89414 Lymphocytes/100 WBC (Bld) 18 % Normal 14-48 [facility] Comment on above: Performed By: #### 7 [id number], [id number], [id number] #### [facility] (DEFAULT) [address] [place] [address] [place] Abs# 0.9 x10 High 0.0-0.8 [facility] Comment on above: Performed By: #### 7 [id number], [id number], [id number] #### [facility] (DEFAULT) [address] [place] [address] 46006 Neut Abs# 5.8 x10 Normal 1.5-9.2 [facility] Comment on above: Performed By: #### 7 [id number], [id number], [id number] #### [facility] (DEFAULT) [address] [place] [address] 76015 Neutrophils/100 WBC (Bld) 70 % Normal 44-88 [facility] Comment on above: Performed By: #### 7 [id number], [id number], [id number] #### [facility] (DEFAULT) [address] [place] [address] Advance Directive Documentso n 12-17-2021 Advance Directive Documents [id number] #1.00OTGTIFF Normal [facility] Advance Directive Documents [id number] #1.00OTGTIFF Normal [facility] BMP Standardon 12-17-2021 eGFR Non AA 55 mL/min/1.73m2 Invalid Interpretation Code [facility] Comment on above: Performed By: #### 7 [id number], [id number], [id number] ####[facility] (DEFAULT)[address] [place] [address] 28321 eGFR AA >60 Invalid Interpretation Code [facility] Comment on above: Result Comment: Screenplay Writer juan diego Kidney disease could be indicated at eGFRs of less than 60 ml/min/1.73m2. Kidney Failure is indicated at less than 15 ml/min/1.73m2 Performed By: #### 7 [id number], [id number], [id number] ####[facility] (DEFAULT)[address] [place] [address] 88295 Anion gap [Moles/Vol] 10.0 mmol/L Normal 5.0-19.0 [facility] Comment on above: Performed By: #### 7 [id number], [id number], [id number] ####[facility] (DEFAULT)[address] [place] [address] 84837 Calcium [Mass/Vol] 8.9 mg/dL Normal 8.9-10.3 [facility] Comment on above: Performed By: #### 7 [id number], [id number], [id number] ####[facility] (DEFAULT)[address] [place] [address] 28689 Chloride [Moles/Vol] 100 mmol/L Low 101-111 [facility] Comment on above: Performed By: #### 7 [id number], [id number], [id number] ####[facility] (DEFAULT)[address] [place] [address] 27213 CO2 [Moles/Vol] 29 mmol/L Normal 21-32 [facility] Comment on above: Performed By: #### 7 [id number], [id number], [id number] ####[facility] (DEFAULT)[address] [place] [address] 01736 Creatinine [Mass/Vol] 0.98 mg/dL Normal 0.60-1.30 [facility] Comment on above: Performed By: #### 7 [id number], [id number], [id number] ####[facility] (DEFAULT)[address] [place] [address] 96501 Glucose [Mass/Vol] 127.0 mg/dL High 74.0-118.0 [facility] Comment on above: Performed By: #### 7 [id number], [id number], [id number] ####[facility] (DEFAULT)[address] [place] [address] 12266 Osmolality 275 mOsm/L Invalid Interpretation Code [facility] Comment on above: Performed By: #### 7 [id number], [id number], [id number] ####[facility] (DEFAULT)[address] [place] [address] 74939 Potassium [Moles/Vol] 3.9 mmol/L Normal 3.6-5.1 [facility] Comment on above: Performed By: #### 7 [id number], [id number], [id number] ####[facility] (DEFAULT)[address] [place] [address] 42053 Sodium [Moles/Vol] 135.0 mmol/L Low 136.0-144.[address] [facility] Comment on above: Performed By: #### 7 [id number], [id number], [id number] ####[facility] (DEFAULT)[address] [place] [address] 87219 Urea nitrogen [Mass/Vol] 23 mg/dL Normal 8-26 [facility] Comment on above: Performed By: #### 7 [id number], [id number], [id number] ####[facility] (DEFAULT)[address] [place] [address] Urea nitrogen/Creatinin e [Mass ratio] 23.0 mg/mg High 4.6-16.2 [facility] Comment on above: Performed By: #### 7 058735, [id number], [id number] ####[facility] (DEFAULT)[address] [place] [address] CBC w/ Auto Diffon 2 Erythrocyte distribution width (RBC) [Ratio] 15.5 % High 11.5-15.0 [facility] Comment on above: Performed By: #### 7 [id number], [id number], [id number] #### [facility] (DEFAULT) [address] [place] [address] Hematocrit (Bld) [Volume fraction] 33.6 % Low 33.7-40.4 [facility] Comment on above: Performed By: #### 7 [id number], [id number], [id number] #### [facility] (DEFAULT) [address] [place] [address] Hemoglobin (Bld) [Mass/Vol] 10.8 g/dL Low 11.3-15.9 [facility] Comment on above: Performed By: #### 7 130909, [id number], [id number] #### [facility] (DEFAULT) [address] [place] [address] Instr WBC 8.2 x10 Invalid Interpretation Code [facility] Comment on above: Performed By: #### 7 [id number], [id number], [id number] #### [facility] (DEFAULT) [address] [place] [address] Man Diff? Auto Normal [facility] Comment on above: Performed By: #### 7 146037, [id number], [id number] #### [facility] (DEFAULT) [address] [place] [address] MCH (RBC) [Entitic mass] 30 pg Normal 24-34 [facility] Comment on above: Performed By: #### 7 035491, [id number], [id number] #### [facility] (DEFAULT) [address] [place] [address] 01872 MCHC (RBC) [Mass/Vol] 32 g/dL Normal 26-37 [facility] Comment on above: Performed By: #### 7 [id number], [id number], [id number] #### [facility] (DEFAULT) [address] [place] [address] 74339 MCV (RBC) [Entitic vol] 95 fL Normal 81-100 [facility] Comment on above: Performed By: #### 7 [id number], [id number], [id number] #### [facility] (DEFAULT) [address] [place] [address] 73455 Platelet 209 x10 Normal 138-427 [facility] Comment on above: Performed By: #### 7 778248, [id number], [id number] #### [facility] (DEFAULT) [address] [place] [address] 69448 Platelet mean volume (Bld) [Entitic vol] 8.3 fL Normal 6.3-10.2 [facility] Comment on above: Performed By: #### 7 [id number], [id number], [id number] #### [facility] (DEFAULT) [address] [place] [address] 66553 RBC 3.55 x10 Low 3.70-5.30 [facility] Comment on above: Performed By: #### 7 694379, [id number], [id number] #### [facility] (DEFAULT) [address] [place] [address] 68061 WBC 8.2 x10 Normal 3.5-10.5 [facility] Comment on above: Performed By: #### 7 915001, [id number], [id number] #### [facility] (DEFAULT) [address] [place] [address] 14436 Consultation/Specialist Note on 12-17-2021 Consultation/Speci alist Note Patient: BETTIE BURNS Age: 76 years Sex: FEMALE : [...] % Auto Lymph % 18 % Auto [place] % 11 % Auto Eos % 0.4 % LOW Auto Baso % 0.2 % Neut Abs# 5.8 x103/mcL Lymph Abs# 1.5 x103/mcL [place] Abs# 0.9 x103/mcL HI Eos Abs# 0.0 [...] [Verified on: 12/17/2021 07:03 EDT] GERHARD MOREL [facility] MAGR Intraoperative Recordon 12-17-2021 MAGR Intraoperative Record MAGR Intra-Op Record Summary Primary Physician: Melchor Rivera DO Finalized Date/Time: 12/17/21 10:27:53 Pt. Name: BETTIE BURNSE /Sex: 1945 FEMALE Med Rec #: [id number] Physician: Melchor Rivera DO Financial #: [id number] Pt. Type: O Room/Bed: [facility] Admit/Disch: 12/16/21 06:48:01 - Institution: Case Times [...] Andrew DO Role Performed Surgeon - Primary Artisan Plasterer Anesthesiologist of Record Time In 12/16/21 10:14:00 12/16/21 10:05:00 12/16/21 10:05:00 Time Out 12/16/21 12:28:00 12/16/21 13:00:00 12/16/21 13:00:00 Procedure Arthroplasty Total Arthroplasty Total Arthroplasty Total Hip(Right) Hip(Right) Hip(Right) Last Modified By: Marah Blancas RN, Jacquelyn RN Burns, Jacquelyn RN 12/16/21 13:02:42 12/16/21 13:02:42 12/16/21 13:02:42 Entry 4 Entry 5 Entry 6 Case Attendee Son REECE, Kadie Porter [employer] RESIDENTIAL TREATMENT SPECIALIST RESIDENTIAL TREATMENT SPECIALIST Role Performed Scrub Personnel Dye Line Operator Dye Line Operator Time In 12/16/21 10:05:00 12/16/21 10:05:00 12/16/21 [...] and Alcohol (more content not included)... Normal [facility] Anesthesia Noteon 12-16-2021 Anesthesia Note Patient: BETTIE BURNS Age: 76 years Sex: FEMALE : [...] on: 12/16/2021 13:39 EDT] Luis Hernández DO [facility] Anesthesia Note Patient: BETTIE BURNS Age: 76 years Sex: FEMALE : [...] = 4 mL, 200 mL/hr, IV Piggyback, Cement Side Laster tranexamic acid: 1,000 mg = 100 mL, [...] All Problems Arthritis, hip / SNOMED CT 8772520362 / Confirmed Afib / SNOMED CT 70769049 / Confirmed Arrhythmia / SNOMED CT 7054042754 / Confirmed Former smoker / SNOMED CT 99145268 / Confirmed Acid reflux / SNOMED CT 452268592 / Confirmed Generalized arthritis / SNOMED CT 520995817 / Confirmed History of stomach ulcers / SNOMED CT 059345117 / Confirmed HTN (hypertension) / SNOMED CT 3091477020 / Confirmed Post-COVID syndrome resolved / SNOMED CT 2212692441 / Confirmed, Active Problems (9) Acid reflux Afib Arrhythmia Arthritis, hip Former smoker Generalized arthritis History of stomach ulcers HTN (hypertension) Post-COVID syndrome resolved Histories Family History: No family history items have been selected or recorded. Procedure history: Lumpectomy of left breast (5081503731). Comments: 11/22/2021 12:45 Steffanie Hernandez RN CA stage 1 (no chemo, had radiation) Arthroscopic repair of rotator cuff. (9960391366). Comments: 11/22/2021 12:48 Steffanie Hernandez RN left side History of total hysterectomy (7883671537). Comments: 11/22/2021 12:51 Steffanie Hernandez RN appendix removed at this time Heart (497921620). Comments: 11/22/2021 12:55 Steffanie Hernandez RN per patient cryo-ablation to nerve in the heart to stop the a-fib. Done in 09/29/[address] Quiñonez [facility] Laparoscopic cholecystectomy (14939761). Cataract (061195818). Comments: 11/22/2021 12:56 Steffanie Hernandez RN radha. Cataract removal Rotator cuff repair (095408192). Comments: 11/22/2021 12:47 Steffanie Hernandez RN right shoulder (1st surgery incision, 2nd arthroscopy, repair of the 1st surgery. Patient states fell and reinjured the rotator cuff) Eye (809077626). Comments: 11/22/2021 12:49 Steffanie Hernandez RN radha. eye lid lift repair Both feet (12464210). Comments: 11/22/2021 12:50 Steffanie Hernandez RN radha. feet removed bones to outer part of the foot Cardiac catheterization, left heart (821824161). Comments: 11/22/2021 12:58 Steffanie Hernandez RN per patient normal done [facility] Social History Electronic Cigarette/Vaping Assessment Electronic [...] Former tobacco user (more content not included)... [facility] MAGR PACU Recordon MAGR PACU Record MAGR PACU Record Summary Primary Physician: Melchor Rivera DO Finalized Date/Time: 12/16/21 14:27:03 Pt. Name: BETTIE BURNS/Sex: 1945 FEMALE Med Rec #: [id number] Physician: Melchor Rivera DO Financial #: [id number] Pt. Type: O Room/Bed: 227/1 Admit/Disch: 12/16/21 06:48:01 - Institution: PACU Case Times MAGR Entry 1 In PACU I 12/16/21 13:01:00 Discharge from PACU 12/16/21 14:10:00 I Last Modified By: Steffanie Damian RN 12/16/21 14:26:54 Finalized By: Steffanie Damian RN Document Signatures Signed By: Steffanie Damian RN 12/16/21 14:27 [facility] MAGR Preoperative Recordon 0 12-16-2021 MAGR Preoperative Record MAGR Pre-Op Record Summary Primary Physician: Melchor Rivera DO Finalized Date/Time: 12/16/21 14:27:34 Pt. Name: BETTIE BURNS/Sex: 1945 FEMALE Med Rec #: [id number] Physician: Melchor Rivera DO Financial #: [id number] Pt. Type: O Room/Bed: 227/1 Admit/Disch: 12/16/21 [...] Signed By: Steffanie Damian RN 12/16/21 14:27 [facility] Nutrition Noteon 12-16-2021 Nutrition Note Pt admitted [...] no immediate nutrition concerns at this time. [facility] Operative Report - Surgeon/P beth 12-16-2021 Operative [...] on: 12/16/2021 12:38 EDT] Melchor Rivera DO [facility] Progress Note - Nurseon 12-02 Progress Note - Nurse patient up in chair, oob using walker to bathroom to void, assisted back to chair, tolerating supper, iv patient, 1 plus palpable on right foot, right hip dressing dry, intact, will continue to monitor. [Electronically Signed on: 12/16/2021 20:31 EDT] Beverly Lam RN [Verified on: 12/16/2021 20:31 EDT] Beverly Lam RN [facility] XR Hip Complete Righton 12-02 XR Hip [...] MD 12/16/21 4:37 pm Technologist: Barbara MCKEON [facility] Patient Handouton 12-14-2021 Patient Handout POST OPERATIVE [...] be done to rule of a DVT. [facility] Coding Summaryon 12-13-2021 Coding Summary HTMLBase 64 YfibhrzwCZp0wFq+PGhl YWQ+RR2TBEXwN01tlBSk xY5VH6eJFN1WKCRJBOPD DC4AOG6mfZC5CNelR3Ss biAv WxjpxOXpRQ21EYm5UGE9 nBzjQMxltK5nqIFvF6f1 JbFdJH45qH53AGjrZBPs OyN7DsZquqvllCVm R5ofQqLphCSnGwv+PHRh YmxlIHdpZHRoPScxMDAl FcCjeMorZN4wJh7nLBQq LWNvbGxhcHNlOiBj s4hcBYWnKSqkRX0hhAwb G0JotMT1MEFdp2k6Mx00 dHI+NZHbRII7xUjvQAgg t483XtYuu9ceOJE5 dKBnOMkfKNV8P52vb0U8 IJXlWQUkGRN1bMK0iO2w eAquzkgsJ6QcsITkWbU0 TPS9yYXniS4qqJzc baregB6yZsa+O24FCV1T QCXNWW1RTyi4N2JfSbjj dHI+EK68YBMfIB83uLJz mHHhw6jcfNb7QsRx RMJhPPT8dGuiVOpeb8Sn RWCxI64ixIRqm3O5PIQq gNnjdTPpNbNymEW7mW1u FBtwpryeo2qlsrit Oyvci9vczt73zS87R50x ZQzsUALhLMK6DSFtUQTj fZwxej8ykR6lXt2+IDxj w6mck4xdeKj6VhIe ZQQptmXybHypGTN9e0Nn Qo04G2LwjNrsi2NvTaw6 ff60qMEpe2W1tHZ5JEgd ZKFmkX1oATieMyU3 IYYsHuLuiW29rFPyILdi Qo8pvKtnaTpnNH0hCPNg poaeJONnuO2gAPHigKUz hOltAE6pMAZplvrz c439EmGaPGH7KJPigYFn G2KwkU9vZkNaOJGvPOWo Q8BxrRCwZPcoO733SAqv UwP7RTMpupEkC8Ce JBMlyJzuPpI5c0C5Qz5L w6OkktvyZSZ7GBfxAXJ0 YrDzJvQsByH1I2OiRhr6 BPOrrQfcID8jX3Sy VRBgqtmwchrtvUT9BAXw WPOleO57aJKsVJdzTm2x a8L4y985PRUbYMUbtU77 Jj9kfWvhSBVaqGXO nR9pzzhlq4jtrxrjMrNy WUGfWJr5GWk6OFTjmGsy MiJlGAE7NvG3SRG0uRMg dZ6prUoubtdwhU3z Oyc+Z84noR4cBZU5ZXN9 vyurRDLsofKnLS76GP74 G2KrFpcfwTMsmWB+PGRp ewHhiEtrBN3pOaVh j0zti4MeKNqxK5CmMATs BInkFmr5NIGbMBL1zTP2 fY5mXSDuXMhqj1C7hBY3 A9ShsoQsds6mu0cq XORyOFrvL39jnLEze3D3 GPZgeSO4RUMpsDmgUyWb iN30Qow+YOTlfMfpq4Ls Bmcee6zmc7cxwBi3 IjMwJSIgdmFsaWduPSJ0 i8AmAy10I82yJHldUJFn JHCmDEXrEMYjaQnnhz7r gJ1kFq4+PGNvbCB3 iWS9lK2zTHXvIrS1GCem X372McJkhOVdZeakp2yq d8frrYl8DiLfUFYsjaMf lDwzLVZ8d2AeNp32 W45kDLilQFOuRUNzEDIq LAYplJycsh1loG9kMw2+ JG8df7yyfj16kY27gKO+ TOCkUEZ6rUekOOue OWMuqB4iOXosEnW0BMOh BrMygI08oYVuGYtlWa6p jSvkmSkpCA0aQZQmjnxl h069YtFej9dkBHWd mLKdIIgsODO3R95ge1T1 XUEfNCSoGJC4zYP4tG1h bGlnbjogbGVmdDsgdmVy lFwrQCgrMIfaZ317 IHRvcDsnPlBhdGllbnQg DzSxOWp2N1JbSsu4VPTi xYsfMM6bvRSkMAgeTs5m qFnxjHdhWS6wPFXm gfanf021CzQkv6kcRELj fMCePFzcPBC7P23pp6D2 VKTkJCDhPQN1zIQ6rD9q bGlnbjogbGVmdDsg tjSjmJdyNYhzDVtdE607 IHRvcDsnPkJpcnRoIERh fSX5SL79NT79lVElh6B0 dUU0O5BjEKMiwjrd sivrpAE9GVJxBZXptI34 Ho6dzNpzDl1mAYSaUNT3 WIHbxEKaY9EloY3oFyMv UYBuPVEcH3JvmRZw TVooX050OPtgDuD7GJYx pzJnJ2NeTVVlsKjkBqC6 j8A1Yg8ZY5Q9RG68WE50 mKVso3C4nFC5C2Ln BKVyqvahtozalHN3AZDk UCHerW41Is0oxNfrZb6z NWSdXVX8PHTidICwR0Rn bU1nVpPjIVHdPUJq N6HfwEMxMHbsV710HHsb XlC9WTAvxqGnL7UiQYAw hYdhMjK1r1T5Wh6HXSx4 CF96ED66vDWqw7T6 nSB6H9UkDQLzqylgyscg cXI4SKUpYRAwiR22Nc4v qYxjDk2vURBwCZD5EBDo pVZaQ3SnvV1kPdMz SLLjGIHwG0VlxRSyMDjq O310OFlvOiM3CMEzmrRg B1RkFUJgqEuvFyI1i1F5 Ag2OGVGpUX09GWJ7 wCN2SF60JJ92D7GdRhlr dGFibGU+PHRhYmxlIHdp ZHRoPScxMDAlJyBzdHls SP5xMy7oJHEpHFXu eOwsrZNcTqWsq7mgVAEe AJdxNB0fzFwfO7XmpFP4 JTOxl7a7Vk08U22zM8Dx dXA+SBCzpED3wRY3 aN5dRxLzLfM2XPbvA582 UrPacCXwWeyoy2nku7lx bUw9ZxJ5EVZuazDrfEua JQD6x8HuLl51O81c IHdpZHRoPSIxNSUiIHZh tDejkw8oqE1vMl7+PGNv qVQ1hZG6jV3kKcCoXbH6 KQytE886NxPkgPWq Vmxkt7erj1umlGs8GpRy IGFzzlDwqRugUDI3g5Ro Qc85V0JfoCnfa4IqRec5 sk19gOSco0R9rPR2 J1LnNVQkmzsusEGhzKya MR1vQOGijrdgTIVleP1w RZFgZ5v5RhVjVgO4CSun N0MefcR0XHTkaMMn GYdnNEH9W81lm2M5UOYw HIBeTNP5nYC5bW3klBmc bjogbGVmdDsgdmVydGlj KNshIOkuO027WDBv hGlxCIPnwY6wJITonAOr wMwgEG3iPZLdrhkeRlHW QUlMRVksIFRPTllBIEdB QNG0V1MdEwv5BVAb jPnlBN8qxVRcJOclGe9n kOlxgQjoCX7fNSDkkpfq WXTzrY7pUVHqmQGljWoo RF3wPJQvocmie977 SqZgJSG3GMRyvMJuJ5Ka fR4xJmIzTVEpCSOtS0Lq hNLkGHuwZ532MInsVyH9 SBWvezZvX3XyVMOh vMnlKzS2r8F5Ow9nAk9i Tm1xDFT3YS60GP25lMTg c7I4wAV1N1MfWAGcinyk yibirYM0ZEApQKGh uB85pVXyQOsqUz2fb8I6 j641KALqXOYfdT78Zu5z nDedHXXsyLGQtH0vldxr v9vjfcfpYoErHPGg CZe8VAg8GVUdhAuiOqHd RXJ7JzB9EHC4fOGqxR0c sCozrnlvgE8xXdb+NzQg JDRjenC3K6YmKoh2 BJEtqShiXW3wrWBuKVjz Tl8ytHhfdAyvHS6xMCMd yqaiSZYsaZ9oXFQidKHd gYlqOD4yEQCuuwku x496MeZePOZ0OKQyhVVd J8RiqY7vNrZdOVMmRNGw L7SkqMTbLIgiU796GEif IcM7PZRemlOiH2Ph RUIqsCudBcI0z0L1Us3G DJ1YBLB2F0InUfm7QSQe vYgkXD6shRXtIGoiVr2i cXoykQwiKS7lBMOc bhlkPOFphX7mDPPioYPd lBacFU0eFEUtvioly115 TiKxVYV4HDPfhQDrQ8Ma rQ5qZfQpOVVfQATe S0ZwxVVjRIrhZ122EJut ZkU1MRNjrlFpD7QuFOSh pLfsNsM5o0W4Rw2PXUcc dGQ+OF34el36E0Ln SizuCja8HNBeSDJ2zNW5 dN2yCGSqGMeaf7D9hBE0 R8WumtHijg6qz1urWSHh JVeaZ10dnMHzf9H3 TQHivDK2FQEdrBebNrXe uZ87Bmn+CUIrlSdbk5Ek Srjxn0vuz7frmQq6CtWj JSIgdmFsaWduPSJ0 c3UyOw55O66wYPgsGOMs JIRjOFHnLWKxoTznwi0l nA9hEn7+NAMjyIE0aVL7 pI7rXyUhMdH7XAti L511QuCwgAJoZmyqr8rj d6thjVh7ScTrKZMvxxRt sRevFXO0q3CoAy48W3Wl pZrwh8JpKdy5sa58 hCMuh1X8zTA2C7EgOUWh pfiolUPalWncAA1hSEKo lfzsAGYppI0oZPPvU0u2 FpGyYvQ7QIwkM2Yl btO7TAOlqRMeVJIexLHJ fB8hbktml9rhcajoGbPe CBFyYQt7MMt6XIYeeEto HtJkUAO6QxB9SDI6 bAIrgO5jkTpxsuoirD7j Oyc+ISa9a2psuDAhAC5w gVR7GY95GN58mCYsb5A9 kZO6R3EjQNHwoohk ydpvlZG2HTCnWSUfnX05 Id9npZscCp4uXFVwUAV4 DNHymMWjP2HefT2hXvTr OFQhBZMnC5VmcAEp XAtbZ057AHpgWrL8FPOr wkLcJ4EvYIOlgVpsFvK7 d0F3Ex8SDJ01JZ40IF52 kBAjb8R7eRR9T9Sm ALMujibwkrlucDT7EHRi JPSlxC31Yy1kkKeuBx4q KBRrZQO9CFQguDHwR4Vr cT9kVvDbLWWuNLDv D0GnjUWhYWgtN764MPcn RqN6NBXzbjByF3DoMJVl gHdcImN8n1P3Ma6SOw82 FB35EU93jTRxn5J3 sIB2J2PySLGeuwpfhimd sNU5QGIaRNIzrA98Ya3e zSnjDl7mQFZmVQJ4ZWQx nBBsG3KwdE7bAkSi QLTnGJEdB3HrzROmIDhq O881PNprRaG1GDUtafQm A3BoLSUrhDuzLpV1h7F3 Fv1WBBvhwmk4N0Zl PjwvdHI+JD55SVGhJP79 eEXntMGvq5derBf4SsQz ADIbMKJ1mMudTDjkj0Bi BXAwX36koIOdl4U7 IGN (more content not included)... [facility] Progress Note - Nurseon 12-02 Progress Note - Nurse Pre-op phone call made to pt. Pt states understanding of arrival time of 0700 on Thursday12/16/21. Pt states understanding of pre-op instructions and is without further questions/concerns at this time. [Electronically Signed on: 12/13/2021 11:21 EDT] Lilia Quiñonez RN [Verified on: 12/13/2021 11:21 EDT] Lilia Quiñonez RN [facility] 2018 Novel Coronavirus (CoVI D-19), CHRISTOPHER LCon 12-12-2021 SARS-CoV-2 (COVID-19) RNA CHRISTOPHER+probe Ql (Unsp spec) Not detected Invalid Interpretation Code Not Detected [facility] Comment on above: Order Comment: [id number] Result Comment: This nucleic acid amplification test was developed and its performance characteristics determined by [employer]. Nucleic acid amplification tests include RT- PCR [...] detected) result in this assay. Performed At: [address] [id number] Hnasa Miller PhD Ph:[phone] Performed By: #### 6 [id number] #### [facility] (DEFAULT) [address] [place] [address] Provider Orderson 11-25-2021 Provider Orders [id number] #1.00OTGTIFF [facility] C Urineon 11-24-2021 C Urine Urine Culture ordered as a result of parameters set on specific urine dip and urine microsopic results. Mixed skin, or urogenital glo. Clinically insignificant [facility] Comment on above: Performed By: #### 6 [id number], [id number] ####[facility] (DEFAULT)[address] [place] [address] C MRSA Screenon 11-23-2021 C MRSA Screen Negative [facility] Comment on above: Performed By: #### 1 [id number] ####[facility] (DEFAULT)[address] [place] [address] .Auto Diff 1on 11-22-2021 Auto [place] % 10 % Normal 1-12 [facility] Comment on above: Performed By: #### 1 [id number] ####[facility] (DEFAULT)[address] [place] [address]20 Baso Abs# 0.1 x10 Normal 0.0-0.2 [facility] Comment on above: Performed By: #### 1 [id number] ####[facility] (DEFAULT)[address] [place] [address] 42851 Basophils/100 WBC (Bld) 1.0 % Normal 0.2-2.0 [facility] Comment on above: Performed By: #### 1 [id number], [id number], [id number] ####[facility] (DEFAULT)[address] [place] [address] 74143 Eos Abs# 0.5 x10 High 0.0-0.4 [facility] Comment on above: Performed By: #### 1 [id number], [id number], [id number] ####[facility] (DEFAULT)[address] [place] [address] 30346 Eosinophils/100 WBC (Bld) 6.7 % High 0.9-4.0 [facility] Comment on above: Performed By: #### 1 [id number], [id number], [id number] ####[facility] (DEFAULT)[address] [place] [address] 53582 Lymph Abs# 2.8 x10 Normal 1.3-2.9 [facility] Comment on above: Performed By: #### 1 [id number], [id number], [id number] ####[facility] (DEFAULT)[address] [place] [address] 10632 Lymphocytes/100 WBC (Bld) 41 % Normal 14-48 [facility] Comment on above: Performed By: #### 1 [id number], [id number], [id number] ####[facility] (DEFAULT)[address] [place] [address] 28350 [place] Abs# 0.7 x10 Normal 0.0-0.8 [facility] Comment on above: Performed By: #### 1 [id number], [id number], [id number] ####[facility] (DEFAULT)[address] [place] [address] 75773 Neut Abs# 2.9 x10 Normal 1.5-9.2 [facility] Comment on above: Performed By: #### 1 [id number], [id number], [id number] ####[facility] (DEFAULT)[address] [place] [address] Neutrophils/100 WBC (Bld) 42 % Low 44-88 [facility] Comment on above: Performed By: #### 1 [id number], [id number], [id number] ####[facility] (DEFAULT)[address] [place] [address] BMP [employer] 11-22-2021 eGFR Non AA 40 mL/min/1.73m2 Invalid Interpretation Code [facility] Comment on above: Performed By: #### 1 [id number], [id number], [id number] ####[facility] (DEFAULT)[address] [place] [address] eGFR AA 49 mL/min/1.73m2 Invalid Interpretation Code [facility] Comment on above: Result Comment: Screenplay Writer juan diego Kidney disease could be indicated at eGFRs of less than 60 ml/min/1.73m2. Kidney Failure is indicated at less than 15 ml/min/1.73m2 Performed By: #### 1 [id number], [id number], [id number] ####[facility] (DEFAULT)[address] [place] [address] 46671 Anion gap [Moles/Vol] 13.0 mmol/L Normal 5.0-19.0 [facility] Comment on above: Performed By: #### 1 [id number], [id number], [id number] ####[facility] (DEFAULT)[address] [place] [address] 50222 Calcium [Mass/Vol] 10.2 mg/dL Normal 8.9-10.3 [facility] Comment on above: Performed By: #### 1 [id number], [id number], [id number] ####[facility] (DEFAULT)[address] [place] [address] 07293 Chloride [Moles/Vol] 100 mmol/L Low 101-111 [facility] Comment on above: Performed By: #### 1 [id number], [id number], [id number] ####[facility] (DEFAULT)[address] [place] [address] 15367 CO2 [Moles/Vol] 30 mmol/L Normal 21-32 [facility] Comment on above: Performed By: #### 1 [id number], [id number], [id number] ####[facility] (DEFAULT)[address] [place] [address] 55391 Creatinine [Mass/Vol] 1.29 mg/dL Normal 0.60-1.30 [facility] Comment on above: Performed By: #### 1 [id number], [id number], [id number] ####[facility] (DEFAULT)[address] [place] [address] 97184 Glucose [Mass/Vol] 121.0 mg/dL High 74.0-118.0 [facility] Comment on above: Performed By: #### 1 [id number], [id number], [id number] ####[facility] (DEFAULT)[address] [place] [address] 82284 Osmolality 285 mOsm/L Invalid Interpretation Code [facility] Comment on above: Performed By: #### 1 [id number], [id number], [id number] ####[facility] (DEFAULT)[address] [place] [address] 59061 Potassium [Moles/Vol] 3.7 mmol/L Normal 3.6-5.1 [facility] Comment on above: Performed By: #### 1 [id number], [id number], [id number] ####[facility] (DEFAULT)[address] [place] [address] 63588 Sodium [Moles/Vol] 139.0 mmol/L Normal 136.0-144.[address] [facility] Comment on above: Performed By: #### 1 [id number], [id number], 1544446 ####[facility] (DEFAULT)[address] [place] [address] 84658 Urea nitrogen [Mass/Vol] 31 mg/dL High 8-26 [facility] Comment on above: Performed By: #### 1 [id number], 61741807, 5407357 ####[facility] (DEFAULT)[address] [place] [address] Urea nitrogen/Creatinin e [Mass ratio] 24.0 mg/mg High 4.6-16.2 [facility] Comment on above: Performed By: #### 1 [id number], 13433650, 0535853 ####[facility] (DEFAULT)[address] [place] [address] CBC w/ Auto Diffon 2 Erythrocyte distribution width (RBC) [Ratio] 15.6 % High 11.5-15.0 [facility] Comment on above: Performed By: #### 1 [id number], 17771679, 9587201 ####[facility] (DEFAULT)[address] [place] [address] Hematocrit (Bld) [Volume fraction] 40.9 % High 33.7-40.4 [facility] Comment on above: Performed By: #### 1 [id number], 81710802, 8577347 ####[facility] (DEFAULT)[address] [place] [address] Hemoglobin (Bld) [Mass/Vol] 13.2 g/dL Normal 11.3-15.9 [facility] Comment on above: Performed By: #### 1 [id number], 40991666, 8931891 ####[facility] (DEFAULT)[address] [place] [address] Instr WBC 7.0 x10 Invalid Interpretation Code [facility] Comment on above: Performed By: #### 1 [id number], 30455675, 3621228 ####[facility] (DEFAULT)[address] [place] [address] Man Diff? Auto Normal [facility] Comment on above: Performed By: #### 1 [id number], 94462035, 5162729 ####[facility] (DEFAULT)[address] [place] [address] MCH (RBC) [Entitic mass] 30 pg Normal 24-34 [facility] Comment on above: Performed By: #### 1 [id number], 05583583, 3155242 ####[facility] (DEFAULT)[address] [place] [address] 38448 MCHC (RBC) [Mass/Vol] 32 g/dL Normal 26-37 [facility] Comment on above: Performed By: #### 1 [id number], 95810805, 2542330 ####[facility] (DEFAULT)[address] [place] [address] 75979 MCV (RBC) [Entitic vol] 92 fL Normal 81-100 [facility] Comment on above: Performed By: #### 1 [id number], 83805689, 5188336 ####[facility] (DEFAULT)[address] [place] [address] Platelet 303 x10 Normal 138-427 [facility] Comment on above: Performed By: #### 1 [id number], 76369571, 8692747 ####[facility] (DEFAULT)[address] [place] [address] Platelet mean volume (Bld) [Entitic vol] 8.8 fL Normal 6.3-10.2 [facility] Comment on above: Performed By: #### 1 [id number], 98142353, 0377719 ####[facility] (DEFAULT)[address] [place] [address] RBC 4.43 x10 Normal 3.70-5.30 [facility] Comment on above: Performed By: #### 1 [id number], 37332836, 9923297 ####[facility] (DEFAULT)[address] [place] [address] WBC 7.0 x10 Normal 3.5-10.5 [facility] Comment on above: Performed By: #### 1 [id number], 62178194, 5533321 ####[facility] (DEFAULT)[address] [place] [address] UA Fjokq5ss 11-22-2021 UA Amorph. 1+ Normal [facility] Comment on above: Order Comment: Urina lysis Microscopic order added on by Discern Expert Rules system. Performed By: #### 6 614763, 03105816, [id number] ####[facility] (DEFAULT)[address] [place] [address] UA Bacteria 1+ [facility] Comment on above: Order Comment: Urina lysis Microscopic order added on by Dis[employer] Expert Rules system. Performed By: #### 6 908316, 78923198, [id number] ####[facility] (DEFAULT)[address] [place] [address] 23121 UA Hyal Cast 0-5 [facility] Comment on above: Order Comment: Urina lysis Microscopic order added on by Dis[employer] Expert Rules system. Performed By: #### 6 795192, 66054363, [id number] ####[facility] (DEFAULT)[address] [place] [address] 47881 UA Mucous 1+ [facility] Comment on above: Order Comment: Urina lysis Microscopic order added on by Dis[employer] Expert Rules system. Performed By: #### 6 781031, 50328681, [id number] ####[facility] (DEFAULT)[address] [place] [address] UA RBC 5-10 [facility] Comment on above: Order Comment: Urina lysis Microscopic order added on by Par[employer] Expert Rules system. Performed By: #### 6 175725, 81836200, [id number] ####[facility] (DEFAULT)[address] [place] [address] UA Squam Epi Few [facility] Comment on above: Order Comment: Urina lysis Microscopic order added on by [employer] Rules system. Performed By: #### 6 054282, 90047010, [id number] ####[facility] (DEFAULT)[address] [place] [address] UA WBC 0-2 [facility] Comment on above: Order Comment: Urina lysis Microscopic order added on by [employer] Rules system. Performed By: #### 6 647958, 90012578, [id number] ####[facility] (DEFAULT)[address] [place] [address] UA w Culture if Ind Standard on 11-22-2021 Breakpoint UA [facility] Comment on above: Performed By: #### 6 287507, 06605270, [id number] ####[facility] (DEFAULT)[address] [place] [address] 90528 Color (U) Yellow Normal [facility] Comment on above: Performed By: #### 6 113550, 00186473, [id number] ####[facility] (DEFAULT)[address] [place] [address] 78550 Culture? Indicated Invalid Interpretation Code [facility] Comment on above: Result Comment: Resu lt created by rule GL_MAGR_ADD_UA_CULT Result created by rule GL_MAGR_ADD_UA_CULT Result created by rule GL_MAGR_ADD_UA_CULT1 Result created by rule GL_MAGR_ADD_UA_CULT Performed By: #### 6 841410, 98112251, [id number] ####[facility] (DEFAULT)[address] [place] [address] Glucose (U) [Mass/Vol] Negative Normal [facility] Comment on above: Performed By: #### 6 449784, 95940281, [id number] ####[facility] (DEFAULT)[address] [place] [address] 50722 Ketones Ql (U) Negative Normal [facility] Comment on above: Performed By: #### 6 541181, 51526476, [id number] ####[facility] (DEFAULT)[address] [place] [address] 19183 Micro? Indicated Invalid Interpretation Code [facility] Comment on above: Result Comment: Resu lt created by rule GL_MAGR_ADD_UA_MICRO Performed By: #### 6 404454, 94798385, [id number] ####[facility] (DEFAULT)[address] [place] [address] 16908 UA Bilirubin Negative Normal [facility] Comment on above: Performed By: #### 6 676762, 96992780, [id number] ####[facility] (DEFAULT)[address] [place] [address] 12717 UA Blood TRACE Abnormal NEGATIVE [facility] Comment on above: Performed By: #### 6 840885, 99273935, [id number] ####[facility] (DEFAULT)[address] [place] [address] UA Clarity CLEAR Normal CLEAR [facility] Comment on above: Performed By: #### 6 315642, 58079286, [id number] ####[facility] (DEFAULT)[address] [place] [address] UA Leuk Est Negative Normal NEGATIVE [facility] Comment on above: Performed By: #### 6 658757, 18060250, [id number] ####[facility] (DEFAULT)[address] [place] [address] UA Nitrite Negative Normal NEGATIVE [facility] Comment on above: Performed By: #### 6 896223, 26130649, [id number] ####[facility] (DEFAULT)[address] [place] [address] UA pH 5.5 Normal 5-8 [facility] Comment on above: Performed By: #### 6 913702, 70049474, [id number] ####[facility] (DEFAULT)[address] [place] [address] UA Protein Negative Normal NEGATIVE [facility] Comment on above: Performed By: #### 6 807891, 74622255, [id number] ####[facility] (DEFAULT)[address] [place] [address] UA Spec Grav 1.025 Normal 1.001-1.035 [facility] Comment on above: Performed By: #### 6 682066, 83334028, [id number] ####[facility] (DEFAULT)[address] [place] [address] UA Urobilinogen 0.2 mg/dL Normal 0.2-1.0 [facility] Comment on above: Performed By: #### 6 470736, 58156110, [id number] ####[facility] (DEFAULT)[address] [place] [address] Urine Source Clean Catch Normal [facility] Comment on above: Performed By: #### 6 421458, 93284496, [id number] ####[facility] (DEFAULT)[address] [place] [address] CNPNon 10-03-2021 [facility] TCBETTIE MONTOYA ([id number]) 1945 F Date Time Provider Department 10/03/21 [facility] During your visit today, we recorded the [...] Z17.0] Order(s):CBC + DIFF [SQCBCDIF] Order #: [id number] FUTURE COMP METABOLIC PANEL [SQCMP] Order #: [id number] FUTURE CA 27.29 BLOOD [[id number]] Order #: [id number] FUTURE Prescriptions as of 10/03/2021 - lisinopril [...] ANDREW CHOI on 10/03/[address] [facility] 09-26-2021 CNPN Telephone ([facility]) BETTIE BURNS ([id number]) 1945 F Date Time Provider Department 09/26/21 ELTON DOMINGUEZ During your visit today, we recorded the following information about you: Elton Dominguez RN 09/26/2021 2:36 PM Signed Pt scheduled for diagnostic mamm tomorrow @ [facility]. Hospital calls to ask if this could be changed to a screening mammogram since the pt is greater than 2 years from diagnosis? RICARDO Jean-Baptiste MD 09/26/2021 5:14 PM Addendum Okay to change to screening mammogram. Order signed. ASIYA Ford RN 09/27/2021 8:12 AM Signed Order faxed to [facility] @ [phone]. Elton Dominguez RN Allergies As of Date: [...] mammogram for malignant neoplasm of breast [Z12.31] Order(s):[facility] [8035727] Order #: [id number] FUTURE Prescriptions as of 09/27/2021 - lisinopril [...] Status:Closed by ANDREW CHOI on 09/26/21 [facility] Hip w/o Righton 09-12-19 22 MRI [...] by Ramon Ambrocio on 09/11/2021 1545 Normal [facility] Cream Ripener Consult Reporton 03-14-2020 Consult Report [facility] CONSULTATION BETTIE BUNRS [address] [id number] OBSV ANABEL WATKINS MD [id number] REFERRING PHYSICIAN: CONSULTING PHYSICIAN: Renetta Almanzar MD DATE OF CONSULTATION: 03/11/2020 REASON: A near syncopal event in a 74-year-old female, with a history of atrial fibrillation, previous cardiac ablation, who was the time of evaluation noted to have a positive test for COVID. HISTORY OF PRESENT ILLNESS: Mrs. Burns is a very pleasant, alert and oriented -loba-iqb female who was brought into the emergency [...] quarantine. Many thanks. RENETTA ALMANZAR MD BD/Med[facility] /[id number] Normal [facility] BASICMETAon 03-11-2020 GFR AA >60 Normal [facility] Comment on above: Result Comment: Afri can Prydeinig GFR Calc Medical judgement is necessary to [...] for drug dosing. Performed By: #### 1 60523, 558929, 391121 ####[facility] [address] [place] [id number] Medical Director: Fahad Cast MD GFR/1.73 sq M predicted among non-blacks MDRD (S/P/Bld) [Vol rate/Area] 56 mL/min/1.73m? Normal [facility] Comment on above: Result Comment: Non GFR [...] for drug dosing. Performed By: #### 1 33405, 867984, 996366 ####[facility] [address] [place] [address] Medical Director: Fahad Cast MD Osmolality [Osmolality] 291 mOsm/kg Normal 275-295 [facility] Comment on above: Performed By: #### 1 19236, 037326, 643454 ####[facility] [address]az[address] [place] [address] Medical Director: Fahad Cast MD Urea nitrogen/Creatinin e [Mass ratio] 24.5 mg/mg Normal [facility] Comment on above: Performed By: #### 1 67283, 404477, 344606 ####[facility] [address] [place] [address] Medical Director: Fahad Cast MD Calcium [Mass/Vol] 9.3 mg/dL Normal 8.5-10.5 [facility] Comment on above: Performed By: #### 1 22788, 903193, 895097 ####[facility] [address] [place] [address] Medical Director: Fahad Cast MD Chloride [Moles/Vol] 108 mmol/L Normal 100-109 [facility] Comment on above: Performed By: #### 1 14336, 242708, 491505 ####[facility] [address] [place] [address] Medical Director: Fahad Cast MD CO2, venous 28.9 mmol/L Normal 21.0-32.0 [facility] Comment on above: Performed By: #### 1 04321, 442893, 388178 ####[facility] [address]fm[address] [place] [address] Medical Director: Fahad Cast MD Creatinine [Mass/Vol] 1.0 mg/dL Normal 0.6-1.0 [facility] Comment on above: Performed By: #### 1 03201, 768283, 672907 ####[facility] [address]ox[address] [place] [address] Medical Director: Fahad Cast MD Glucose [Mass/Vol] 98 mg/dL Normal 72-100 [facility] Comment on above: Result Comment: Sharon puncture should occur prior to sulfasalazine administration due to the potential for falsely depressed results. Venipuncture should occur prior to sulfapyridine administration due to the potential falsely elevated results. Baseline assay values before administration of sulfasalazine and sulfapyridine therapy would not be affected. Performed By: #### 1 21642, 527863, 182478 ####[facility] [address] [place], [place] [address]) [phone] Director: Fahad Cast MD Potassium [Moles/Vol] 4.2 mmol/L Normal 3.5-5.1 [facility] Comment on above: Performed By: #### 1 21123, 254641, 897912 ####[facility] [address]oneqrm[address] [place] [address] Medical Director: Fahad Cast MD Sodium [Moles/Vol] 144 mmol/L Normal 135-145 [facility] Comment on above: Performed By: #### 1 63882, 547573, 310429 ####[facility] [address] [place] [address] Medical Director: Fahad Cast MD Urea nitrogen [Mass/Vol] 24 mg/dL High 10-20 [facility] Comment on above: Performed By: #### 1 75617, 930352, 282087 ####[facility] [address] [place] [address] Medical Director: Fahad Cast MD [facility] Erythrocyte distribution width (RBC) [Ratio] 14.4 % Normal 11.5-14.5 [facility] Comment on above: Performed By: #### 1 69455, 368719, 554348 #### [facility] [address] [place] [address]99 Ict Account Manager: Fahad Cast MD Hematocrit (Bld) [Volume fraction] 33.9 % Low 36.0-46.0 [facility] Comment on above: Performed By: #### 1 88814, 763658, 422680 #### [facility] [address] [place] [address] 71891 Ict Account Manager: Fahad Cast MD Hemoglobin (Bld) [Mass/Vol] 11.2 g/dL Low 12.0-16.0 [facility] Comment on above: Performed By: #### 1 83741, 088134, 938099 #### [facility] [address] [place], [place] [address] Ict Account Manager: Fahad Cast MD MCH (RBC) [Entitic mass] 29.5 pg Normal 27.0-34.0 [facility] Comment on above: Performed By: #### 1 86440, 697602, 760497 #### [facility] [address] [place] [address] 61882 Ict Account Manager: Fahad Cast MD MCHC (RBC) [Mass/Vol] 33.0 g/dL Normal 32.0-37.0 [facility] Comment on above: Performed By: #### 1 31217, 597856, 496404 #### [facility] [address] [place] [address] 50443 Ict Account Manager: Fahad Cast MD MCV (RBC) [Entitic vol] 89.5 fL Normal 80.0-100.0 [facility] Comment on above: Performed By: #### 1 13802, 292015, 780928 #### [facility] [address] [place] [address] 87214 Ict Account Manager: Fahad Cast MD Platelet mean volume (Bld) [Entitic vol] 6.8 fL Low 7.4-10.4 [facility] Comment on above: Performed By: #### 1 07299, 471502, 714665 #### [facility] [address] [place] [address] 97092 Ict Account Manager: Fahad Cast MD Platelets (Bld) [#/Vol] 232 x1000 Normal 150-450 [facility] Comment on above: Performed By: #### 1 98507, 658322, 750105 #### [facility] [address] [place] [address] 40952 Ict Account Manager: Fahad Cast MD RBC (Bld) [#/Vol] 3.79 x10 Low 4.20-5.40 [facility] Comment on above: Result Comment: Note : RBC morphology is normal unless otherwise stated. Evaluation performed only if differential is requested. Performed By: #### 1 81523, 225583, 603089 #### [facility] [address] [place] [address] 36632 Ict Account Manager: Fahad Cast MD WBC (Bld) [#/Vol] 5.8 10*3/uL Normal [facility] Comment on above: Performed By: #### 1 37188, 111674, 562982 #### [facility] [address] [place] [address] 72757 Ict Account Manager: Fahad Cast MD WBC (Bld) [#/Vol] 5.8 x10 Normal 4.5-11.0 [facility] Comment on above: Performed By: #### 1 57140, 561804, 461859 #### [facility] [address] [place] [address] 69699 Ict Account Manager: Fahad Cast MD D Dimer HSon 03-11-2020 D Dimer HS 821 ng/mL FEU High <=499 [facility] Comment on above: Result Comment: Excl usion of PE and DVT The D Dimer HS assay is reported in ng/ml Fibrinogen Equivalent Units (FEU). Per manager monitoring?s instructions for use, a value less than 500ng/ml (FEU) may help to exclude DVT and /or PE in outpatients when the assay is used with a clinical pretest probability assessment. D-Dimer used for DIC Screens Assay results should be used with other information, including the clinical context in forming a diagnosis. Performed By: #### C [id number] ####[facility] [address] [place], [place] [address] Medical Director: Fahad Cast MD LDHon 03-11-2020 LDH 198 unit/L Normal 84-246 [facility] Comment on above: Performed By: #### 1 10663, 741767, 104203 #### [facility] [address] [place] [address] Ict Account Manager: Fahad Cast MD Progress Note-Physicianon Progress Note-Physician Patient: BETTIE BURNS Age: 74 years Sex: Female : [...] medications. 6) DVT ppx: On Eliquis Normal [facility] Utilization Review Noteon Utilization Review Note ID Consult pending DISCHARGE WRITTEN AND PLANNED. Normal [facility] AUTO DIFFon 03-10-2020 Basophils (Bld) [#/Vol] 0.05 x1000 Normal 0.00-0.20 [facility] Comment on above: Performed By: #### 1 09440, 179530, 0304802 ####[facility] [address] [place] [address] Medical Director: Fahad Cast MD Basseb % 0.6 % Normal [facility] Comment on above: Performed By: #### 1 83943, 685058, 9708081 ####[facility] [address]fkncuon[address] [place] [address] Medical Director: Fahad Cast MD Eos Count 0.15 x1000 Normal 0.00-0.50 [facility] Comment on above: Performed By: #### 1 15748, 956308, 0961903 ####[facility] [address]uf[address] [place] [address] Medical Director: Fahad Cast MD Eosinophils/100 WBC (Bld) 1.8 % Normal [facility] Comment on above: Performed By: #### 1 76417, 811317, 3458125 ####[facility] [address] [place] [address] Medical Director: Fahad Cast MD Lymphocytes (Bld) [#/Vol] 1.05 x1000 Low 1.20-4.80 [facility] Comment on above: Performed By: #### 1 , 612027, 7678375 ####[facility] [address]rr[address] [place] [address] Medical Director: Fahad Cast MD Lymphocytes/100 WBC (Bld) 12.7 % Normal [facility] Comment on above: Performed By: #### 1 65773, 613586, 1097085 ####[facility] [address] [place] [address] Medical Director: Fahad Cast MD [place] Count 0.70 x1000 Normal 0.10-1.00 [facility] Comment on above: Performed By: #### 1 26090, 972424, 6000469 ####[facility] [address] [place] [address] Medical Director: Fahad Cast MD Monocytes/100 WBC (Bld) 8.4 % Normal [facility] Comment on above: Performed By: #### 1 25268, 934843, 9139483 ####[facility] [address]obc[address] [place] [address] Medical Director: Fahad Cast MD Neutrophils (Bld) [#/Vol] 6.32 x1000 Normal 1.40-8.80 [facility] Comment on above: Performed By: #### 1 38773, 871392, 0239367 ####[facility] [address] [place] [address] Medical Director: Fahad Cast MD Neutrophils/100 WBC (Bld) 76.4 % Normal [facility] Comment on above: Performed By: #### 1 , 986066, 3320069 ####[facility] [address] [place] [address] Medical Director: Fahad Cast MD COMPMETAon 03-10-2020 Albumin [Mass/Vol] 3.4 g/dL Normal 3.4-5.0 [facility] Comment on above: Performed By: #### 1 , 008696, 2891116 ####[facility] [address] [place] 6336130 Medical Director: Fahad Cast MD Albumin/Globulin [Mass ratio] 0.8 {ratio} Normal [facility] Comment on above: Performed By: #### 1 , 083627, 2182313 ####[facility] [address] [place] 6336130 Medical Director: Fahad Cast MD Alk Phos 71 unit/L Normal 45-117 [facility] Comment on above: Performed By: #### 1 , 977498, 0872985 ####[facility] [address]op[address] [place] [address] Medical Director: Fahad Cast MD Bilirubin [Mass/Vol] 0.37 mg/dL Normal 0.20-1.00 [facility] Comment on above: Result Comment: Use of this assay is not recommended for patients undergoing treatment with eltrombopag due to the potential for falsely elevated results. Performed By: #### 1 , 925648, 3959360 ####[facility] [address] [place] [address] Medical Director: Fahad Cast MD Calcium [Mass/Vol] 9.4 mg/dL Normal 8.5-10.5 [facility] Comment on above: Performed By: #### 1 51874, 612935, 0969706 ####[facility] [address]zfx[address] [place] [address] Medical Director: Fahad Cast MD Chloride [Moles/Vol] 108 mmol/L Normal 100-109 [facility] Comment on above: Performed By: #### 1 18021, 362802, 7662656 ####[facility] [address]eb[address] [place] [address] Medical Director: Fahad Cast MD CO2, venous 28.2 mmol/L Normal 21.0-32.0 [facility] Comment on above: Performed By: #### 1 97279, 471662, 1134824 ####[facility] [address] [place] [address] Medical Director: Fahad Cast MD Creatinine [Mass/Vol] 1.2 mg/dL High 0.6-1.0 [facility] Comment on above: Performed By: #### 1 27797, 211927, 7538892 ####[facility] [facility] [address] [place] [address] Medical Director: Fahad Cast MD GFR AA 53 Normal [facility] Comment on above: Result Comment: Afri can Prydeinig GFR Calc Medical judgement is necessary to [...] for drug dosing. Performed By: #### 1 24760, 249466, [id number] ####[facility] [address]ds[address]pc[address] [place] [address] Medical Director: Fahad Cast MD GFR/1.73 sq M predicted among non-blacks MDRD (S/P/Bld) [Vol rate/Area] 44 mL/min/1.73m? Normal [facility] Comment on above: Result Comment: Non GFR [...] for drug dosing. Performed By: #### 1 84099, 424258, [id number] ####[facility] [address] [place] [id number] Medical Director: Fahad Cast MD Globulin (S) [Mass/Vol] 4.0 g/dL Normal [facility] Comment on above: Performed By: #### 1 97597, 666314, [id number] ####[facility] [address] [place] [id number] Medical Director: Fahad Cast MD Glucose [Mass/Vol] 143 mg/dL High 72-100 [facility] Comment on above: Result Comment: Sharon puncture should occur prior to sulfasalazine administration due to the potential for falsely depressed results. Venipuncture should occur prior to sulfapyridine administration due to the potential falsely elevated results. Baseline assay values before administration of sulfasalazine and sulfapyridine therapy would not be affected. Performed By: #### 1 39165, 619101, [id number] ####[facility] [address]vb[address]bot[address] [place] [address] Medical Director: Fahad Cast MD GOT 18 unit/L Normal 15-37 [facility] Comment on above: Result Comment: Sharon puncture should occur prior to sulfasalazine and/or sulfapyridine administration due to the potential for falsely depressed results. Baseline assay values before administration of sulfasalazine and sulfapyridine therapy would not be affected. Performed By: #### 1 33715, 576485, [id number] ####[facility] [address] [place], [place] [id number]) [phone] Director: Fahad Cast MD GPT 19 unit/L Normal 13-56 [facility] Comment on above: Result Comment: Sharon puncture should occur prior to sulfasalazine and/or sulfapyridine administration due to the potential for falsely depressed results. Baseline assay values before administration of sulfasalazine and sulfapyridine therapy would not be affected. Performed By: #### 1 61006, 001660, 6836430 ####[facility] [address]tisband[address] [place], [place] [id number]) [phone] Director: Fahad Cast MD Osmolality [Osmolality] 293 mOsm/kg Normal 275-295 [facility] Comment on above: Performed By: #### 1 16073, 820925, 6256243 ####[facility] [address] [place] [address] Medical Director: Fahad Cast MD Potassium [Moles/Vol] 4.0 mmol/L Normal 3.5-5.1 [facility] Comment on above: Performed By: #### 1 31555, 600453, 8772250 ####[facility] [address] [place] [address] Medical Director: Fahad Cast MD Protein [Mass/Vol] 7.4 g/dL Normal 6.0-8.5 [facility] Comment on above: Performed By: #### 1 43390, 892746, 8268093 ####[facility] [address] [place] [address] Medical Director: Fahad Cast MD Sodium [Moles/Vol] 142 mmol/L Normal 135-145 [facility] Comment on above: Performed By: #### 1 14249, 720518, 7152113 ####[facility] [address]zz[address] [place] [address] Medical Director: Fahad Cast MD Urea nitrogen [Mass/Vol] 32 mg/dL High 10-20 [facility] Comment on above: Performed By: #### 1 14287, 179433, 4385609 ####[facility] [address]fl[address] [place] [address] Medical Director: Fahad Cast MD Urea nitrogen/Creatinin e [Mass ratio] 26.7 mg/mg Normal [facility] Comment on above: Performed By: #### 1 31317, 107039, 5774567 ####[facility] [address] [place] [address] Medical Director: Fahad Cast MD COVID-19 by PCR SWEDon 03-10 COVID-19 by PCR SWED Positive Abnormal [facility] Comment on above: Result Comment: CALL DEANNA CHRISTIE 03/10/2020 18:23:22 EST BY SHF; RBR Performed By: #### C [id number] ####[facility] [address] [place] [address] Medical Director: Fahad Cast MD CRP QUANTon 03-10-2020 C-Reactive Protein, Quantitative 0.8 mg/dL High 0.0-0.3 [facility] Comment on above: Performed By: #### 1 36664, [id number], CD:[id number], [id number] #### [facility] Services [address] [place] [address] Ict Account Manager: Fahad Cast MD CT ABD PELVIS W [...] by: Oni Liu MD 03/10/2020 3:50 PM RESIDENTIAL TREATMENT SPECIALIST Technologist: LIEN BLANCA Dictated By: ONI LIU MD Signed By: ONI LIU MD Signed Out: 03/10/20 16:50:49 Normal [facility] D Dimer HSon 03-10-2020 D Dimer HS 264 ng/mL FEU Normal <=499 [facility] Comment on above: Result Comment: Excl usion of PE and DVT The D Dimer HS assay is reported in ng/ml Fibrinogen Equivalent Units (FEU). Per manager monitoring?s instructions for use, a value less than 500ng/ml (FEU) may help to exclude DVT and /or PE in outpatients when the assay is used with a clinical pretest probability assessment. D-Dimer used for DIC Screens Assay results should be used with other information, including the clinical context in forming a diagnosis. Performed By: #### 1 45857, [id number], :[id number], [id number] #### [facility] [address] [place] [address] Ict Account Manager: Fahad Cast MD ED Physician Reporton 2019 ED Physician Report Patient: BETTIE BURNS Age: 74 years Sex: Female : [...] The location where the incident occurred was [facility]. Therapy today: see nurses notes. Preceding symptoms: [...] Line Saline Flush: 3 mL, IV Push, [id number] Documented Medications Documented Eliquis 5 mg oral [...] Interp, Sinus rhythm with first-degree AV block, HI interval 256, QT/QTc/433, incomplete right bundle branch [...] /100WBC NA Lymph % 12.7 % NA [place] % 8.4 % NA Neutrophil % 76.4 % NA Eosin % 1.8 % NA Basos % 0.6 % NA Lymph Count 1.05 x1000 LOW [place] Count 0.70 x1000 NORMAL Neutrophil Count (ANC) [...] by: Monae Hernandez MD 03/10/2020 1:58 PM RESIDENTIAL TREATMENT SPECIALIST Signed By: MONAE HERNANDEZ MD CT ABD [...] by: Oni Liu MD 03/10/2020 3:50 PM RESIDENTIAL TREATMENT SPECIALIST Signed By: ONI LIU MD . Notes: [...] Course: improving. Impression and Plan Diagnosis Syncope (COG17-AH R55, Working, Medical) Plan Condition: Stable. Disposition: Place in Observation Telemetry Unit, JERRICA RUST MD. Counseled: Patient, Regarding diagnosis, Regarding diagnostic results, Regarding treatment plan, Patient indicated understanding of instructions. Notes: I, Aracely Mazariegos, am scribing for and in the presence of Gladys Hilario DO. Scribe Signature: Fatemeh Novak, 03/10/2020 14:53 , I personally performed the services described in the documentation, reviewed and edited the documentation which was dictated to the scribe in my presence, and it accurately records my words and actions.. Normal [facility] ED Pre-Arrival Formon 2019 ED Pre-Arrival Form Pre-Arrival Summary Name: STR, Current Date: 03/10/2020 13:52:19 EST Gender: Date of : Age: Pre-Arrival Type: EMS ETA: 03/10/2020 14:15:00 EST Primary Care Physician: Presenting Problem: Pre-Arrival User: Neil Vázquez RN Referring Source: Location: 1 [facility] Emergency Department [address] [place] [address] ____ Notes: Vital Signs: Doctor Call Back: DNR Status: Miscellaneous Issues: Normal [facility] ED Progress Noteon 0 ED Progress Note report not put in by previous rn pt here for syncopal episode after diarrhea episode pt has hx of afib. pt covid+ report called to neil rn will come get pt Normal [facility] FERRITINon 03-10-2020 Ferritin [Mass/Vol] 32 ng/mL Normal 8-252 [facility] Comment on above: Performed By: #### 1 79357, [id number], [id number], [id number] #### [facility] Services [address] [place] [address] Ict Account Manager: Fahad Cast MD HEMOon 03-10-2020 DIFF? No Normal [facility] Comment on above: Performed By: #### 1 24546, 262279, [id number] ####[facility] [address]deq24[address] [place], [place] [id number]) [phone] Director: Fahad Cast MD Erythrocyte distribution width (RBC) [Ratio] 14.5 % Normal 11.5-14.5 [facility] Comment on above: Performed By: #### 1 73281, 503377, 0041327 ####[facility] Mtkxymet21483 [place] [address] Medical Director: Fahad Cast MD Hematocrit (Bld) [Volume fraction] 35.8 % Low 36.0-46.0 [facility] Comment on above: Performed By: #### 1 65579, 494365, 0908467 ####[facility] [address] [place] [address] Medical Director: Fahad Cast MD Hemoglobin (Bld) [Mass/Vol] 11.7 g/dL Low 12.0-16.0 [facility] Comment on above: Performed By: #### 1 13367, 860988, 8094437 ####[facility] Qapstvew[address] [place] [address] Medical Director: Fahad Cast MD MCH (RBC) [Entitic mass] 29.4 pg Normal 27.0-34.0 [facility] Comment on above: Performed By: #### 1 47445, 185994, 8782235 ####[facility] [address] [place] [address] Medical Director: Fahad Cast MD MCHC (RBC) [Mass/Vol] 32.7 g/dL Normal 32.0-37.0 [facility] Comment on above: Performed By: #### 1 68374, 868003, 0646053 ####[facility] [address] [place], [place] [address] Medical Director: Fahad Cast MD MCV (RBC) [Entitic vol] 89.8 fL Normal 80.0-100.0 [facility] Comment on above: Performed By: #### 1 81198, 671644, 9212444 ####[facility] [address] [place], [place] [address] Medical Director: Fahad Cast MD Nucleated RBC (Bld) [#/Vol] 0 /100WBC Normal [facility] Comment on above: Performed By: #### 1 77943, 590034, 7946317 ####[facility] [address] [place], [place] [address] Medical Director: Fahad Cast MD Platelet mean volume (Bld) [Entitic vol] 6.7 fL Low 7.4-10.4 [facility] Comment on above: Performed By: #### 1 74880, 738303, 0098451 ####[facility] [address] [place] [address] Medical Director: Fahad Cast MD Platelets (Bld) [#/Vol] 252 x1000 Normal 150-450 [facility] Comment on above: Performed By: #### 1 35912, 339468, 8680895 ####[facility] [address] [place], [place] [id number]) [phone] Director: Fahad Cast MD RBC (Bld) [#/Vol] 3.99 x10 Low 4.20-5.40 [facility] Comment on above: Result Comment: Note : RBC morphology is normal unless otherwise stated. Evaluation performed only if differential is requested. Performed By: #### 1 76740, 908582, 7417566 ####[facility] [address] [place], [place] [id number]) [phone] Director: Fahad Cast MD WBC (Bld) [#/Vol] 8.3 10*3/uL Normal [facility] Comment on above: Performed By: #### 1 03778, 302634, 8028745 ####[facility] [address] [place], [place] [address]) [phone] Director: Fahad Cast MD WBC (Bld) [#/Vol] 8.3 x10 Normal 4.5-11.0 [facility] Comment on above: Performed By: #### 1 99118, 335536, 4526418 ####[facility] [address]zyifa[address]64 [place], [place] [address]) [phone] Director: Fahad Cast MD History and Physicalon 03-10 History and Physical Patient: BETTIE BURNS Age: 74 years Sex: Female : [...] (MAR 10 16:00) DBP L 50mmHg (MAR 10:) Physical Exam: General: No acute distress. HEENT: [...] ppx: On Eliquis OT MESA on Normal [facility] LACTATEon 03-10-2020 Lactate [Moles/Vol] 1.8 mmol/L Normal 0.4-2.0 [facility] Comment on above: Performed By: #### 1 38798 #### [facility] Services [address] [place] [address] Ict Account Manager: Fahad Cast MD LIPrandi 03-10-2020 Lipase [Catalytic activity/Vol] 135 unit/L Normal 73-393 [facility] Comment on above: Performed By: #### 1 54179, 684346, 241744 ####[facility] [address]kl[address] [place] [address] Medical Director: Fahad Cast MD MG LEVELon 03-10-2020 Magnesium [Mass/Vol] 1.9 mg/dL Normal 1.6-2.6 [facility] Comment on above: Performed By: #### 1 70666, 517281, 747778 ####[facility] [address] [place] [address] Medical Director: Fahad Cast MD PCTon 03-10-2020 Procalcitonin <0.05 Normal [facility] Comment on above: Result Comment: INTE RP [...] or septic shock. Performed By: #### 1 94338, [id number], CD:[id number], [id number] #### [facility] Services [address] [place] [address] Ict Account Manager: Fahad Cast MD TROPONINon 03-10-2020 Troponin I.cardiac [Mass/Vol] ng/mL Normal 0.000-0.099 [facility] Comment on above: Result Comment: This test is a quantitative determination of cardiac troponin I. High levels of serum biotin may interfere with this test. Performed By: #### 1 79213, 954671, 191252 ####[facility] [address] [place] [id number] Medical Director: Fahad Cast MD XR CHEST [...] by: Monae Hernandez MD 03/10/2020 1:58 PM RESIDENTIAL TREATMENT SPECIALIST Technologist: THANG JAMES Dictated By: MONAE HERNANDEZ MD Signed By: MONAE HERNANDEZ MD Signed Out: 03/10/20 14:58:26 Normal [facility] Vital Signs Date Time Vital Sign Value Performing Clinician Facility 10-30-2022 14:45-0400 Body height 165.1 cm Elliot Starks Other [facility] Other 10-30-2022 14:45-0400 Body mass index (BMI) [Ratio] 28.4 kg/m2 Elliot Starks Other [facility] Other 10-30-2022 14:45-0400 Body weight 77.43 kg Elliot Starks Other [facility] Other 10-30-2022 14:45-0400 Diastolic blood pressure 66 mm[Hg] Elliot Starks Other [facility] Other 10-30-2022 14:45-0400 Systolic blood pressure 123 mm[Hg] Elliot Starks Other [facility] Other 06-04-2022 11:30-0500 Body height 165.1 cm Elliot Starks Other [facility] Other 06-04-2022 11:30-0500 Body mass index (BMI) [Ratio] 28.29 kg/m2 Elliot Starks Other [facility] Other 06-04-2022 11:30-0500 Body weight 77.11 kg Elliot Starks Other [facility] Other 06-04-2022 11:30-0500 Diastolic blood pressure 64 mm[Hg] Elliot Starks Other [facility] Other 06-04-2022 11:30-0500 SaO2% (BldA) [Mass fraction] 99 % Elliot Starsk Other [facility] Other 06-04-2022 11:30-0500 Systolic blood pressure 104 mm[Hg] Elliot Starks Other [facility] Other Encounters Encounter Date Encounter Type Care Provider Facility Start: 05-27-2023 ambulatory Alfreda Miller Facility:[facility] Start: 05-14-[address] [facility] Start: 05-14-[address] [facility] Start: 05-14-2023 End: 05-14-2023 Subsequent hospital visit by physician Miko Ohara MD Work Phone: [facility] Start: 03-30-2023 (Televisit) Televisit [facility] Start: 03-30-2023 End: 03-30-2023 ambulatory Elliot Starks Other [facility] Other Start: 02-11-2023 End: 02-12-2023 ambulatory Alfreda Miller Facility:[facility] Start: 02-11-2023 End: 02-11-2023 Patient encounter procedure Alfreda Miller [facility] Start: 11-17-2022 End: 11-17-2022 ambulatory Elliot Starks Other [facility] Other Start: 11-17-2022 Telephone encounter Elliot Starks [facility] Start: 11-06-2022 ambulatory Alfreda Miller Facility:[facility] Start: 10-30-2022 End: 10-30-2022 ambulatory Elliot Starks Other [facility] Other Start: 10-30-2022 Office outpatient visit 15 minutes Elliot Starks [facility] Start: 10-29-2022 End: 10-29-2022 ambulatory Elliot Starks Other [facility] Other Start: 10-29-2022 Telephone encounter Elliot Starks [facility] Start: 10-27-2022 Nursing evaluation o f patient and report Elliot Starks [facility] Start: 10-27-2022 End: 10-27-2022 ambulatory Elliot Malini [facility] [employer] [facility] Other Start: 10-27-2022 End: 10-27-2022 Departed Referred MD Elliot Starks Work Phone: [facility] [place] Work Phone: Start: 09-11-2022 Telephone encounter Matt Duron Hematology/Oncology Comment on above: Orders Start: 08-11-2022 End: 08-11-2022 ambulatory Elliot Starks Other [facility] Other Start: 08-11-2022 Nursing evaluation o f patient and report Elliot Starks [facility] Start: 07-17-2022 (Televisit) Televisit Elliot Dela Cruz [facility] Start: 07-17-2022 End: 07-17-2022 ambulatory Elliot Starks Other [facility] Other Start: 06-23-2022 End: 06-23-2022 ambulatory Elliot Starks Other [facility] Other Start: 06-23-2022 Nursing evaluation o f patient and report Elliot Starks [facility] Start: 06-09-2022 End: 06-09-[address] ELLIOT STARKS Facility:[facility] Start: 06-06-2022 End: 06-06-2022 ambulatory Elliot Starks Other [facility] Other Start: 06-06-2022 Telephone encounter Elliot Starks [facility] Start: 06-04-2022 End: 06-04-2022 ambulatory Elliot Starks Other [facility] Other Start: 06-04-2022 Office outpatient visit 25 minutes Elliot Starks [facility] Start: 05-21-2022 End: 05-21-2022 ambulatory Elliot Starks Other [facility] Other Start: 05-21-2022 Telephone encounter Elliot Starks [facility] Start: 04-26-2022 End: 04-26-[address] ELLIOT STARKS Facility:[facility] Start: 04-14-2022 End: 04-14-[address] ELLIOT STARKS Facility:[facility] Start: 10-03-2021 Telephone encounter Andrew black MD Work Phone: Hematology/Oncology Comment on above: Lab Orders Start: 09-26-2021 Telephone encounter Elton jimenez RN Work Phone: Hematology/Oncology Comment on above: Radiology Mammogram Start: 12-02-2016 End: 12-03-2016 Ambulatory DEFAULT PHYSICIAN Facility:[facility] Procedures Date Procedure Procedure Detail Performing Clinician Start: 09-25-2020 Mammography Elton jimenez RN Work Phone: Start: 10-07-2019 Adult depression scr eening assessment Elton Dominguez RN Work Phone: Start: 01-01-2017 Screening mammography Deric Starks Other Start: 02-01-2013 General examination of patient Elliot [facility]arks Other Appendectomy Alfreda Miller Bilateral cataracts (disorder) Alfreda Miller Cardiac ablation sys tem (physical object) Alfreda Miller Cholecystectomy Alfreda Moraese Insertion of hip prosthesis Alfreda Miller Lumpectomy of left breast Ka gonsalo Miller Rotator cuff includi ng muscles and tendons (body structure) Alfreda Miller Screening for malign ant neoplasm of breast Elliot [facility] Other Total abdominal hysterectomy Alfreda Miller Plan of Treatment Date Care Activity Detail Author Start: 10-09-2023 DIABETES SCREEN DIABETES SCREEN [facility] Start: 01-02-2023 COVID-19 VACCINE ( season) COVID-19 VACCINE ( season) [facility] Start: 01-02-2023 Influenza vaccination INFLUENZA (Sea son Ended) [facility] Start: 10-27-2022 Bacteria identified in Urine by Culture [facility] Start: 05-04-2022 ADVANCE DIRECTIVE DISCUSSION ADVANCE DIRECTIVE DISCUSSION [facility] Start: 05-04-2022 DEPRESSION ASSESSMENT DEPRESSION ASS ESSMENT [facility] Start: 01-02-2022 Influenza vaccination INFLUENZA (Sea son Ended) [facility] Start: 10-07-2021 End: 12-07-2021 Cancer Ag 27-29 [Units/volume] in Serum or Plasma CA 27.29 BLOOD Lab Routine Malignant neoplasm of upper-outer quadrant of left breast in female, estrogen receptor positive (HCC) Expected: 10/07/2021, Expires: 12/07/2021 [facility] Work Phone: Comment on above: Expected: 10/07/2021 , Expires: 12/07/2021 Start: 10-07-2021 End: 12-07-2021 CBC W Auto Differential panel - Blood CBC + DIFF Lab Routine Malignant neoplasm of upper-outer quadrant of left breast in female, estrogen receptor positive (HCC) Expected: 10/07/2021, Expires: 12/07/2021 [facility] Work Phone: Comment on above: Expected: 10/07/2021 , Expires: 12/07/2021 Start: 10-07-2021 End: 12-07-2021 Comprehensive metabolic 2000 panel - Serum or Plasma COMP METABOLIC PANEL Lab Routine Malignant neoplasm of upper-outer quadrant of left breast in female, estrogen receptor positive (HCC) Expected: 10/07/2021, Expires: 12/07/2021 [facility] Work Phone: Comment on above: Expected: 10/07/2021 , Expires: 12/07/2021 Start: 09-25-2021 Mammography MAMMOGRAM [facility] Start: 05-04-2021 ADVANCE DIRECTIVE DISCUSSION ADVANCE DIRECTIVE DISCUSSION [facility] Start: 11-17-2020 COVID-19 VACCINE (3 - Booster for Pfizer series) COVID-19 VACCINE (3 - Booster for Pfizer series) [facility] Start: 10-06-2020 Adult depression screening assessment DEPRESSION SCREENING [facility] Start: 08-15-2020 COVID-19 VACCINE (3 - Booster for Pfizer series) COVID-19 VACCINE (3 - Booster for Pfizer series) [facility] Start: 01-05-2019 PNEUMOCOCCAL: 65+ (2 - PCV) PNEUMOCOCCAL: 65+ (2 - PCV) [facility] Start: 07-07-2012 BONE DENSITY BONE DENSITY [facility] Start: 07-07-1997 SHINGRIX VACCINE (1 of 2) SHINGRIX VACCINE (1 of 2) [facility] Start: 07-07-1997 Zoster vaccine hzv l david for subcutaneous use ZOSTER (SHINGLES) VACCINE (1 of 2) [facility] Start: 07-07-1992 COLOGUARD (FIT-DNA) COLOGUARD (FIT-D NA) [facility] Start: 07-07-1992 Colonoscopy COLONOSCOPY [facility] Start: 07-07-1992 COLORECTAL CANCER SCREENING COLORECTAL CANCER SCREENING [facility] Start: 07-07-[address] COLONOGRAPHY [facility] Start: 07-07-1992 FECAL OCCULT BLOOD FECAL OCCULT BLOO D [facility] Start: 07-07-1992 LIPID SCREEN LIPID SCREEN [facility] Start: 07-07-1992 Screening for malign ant neoplasm of colon COLORECTAL CANCER SCREENING DISCUSSION [facility] Start: 07-07-1992 SIGMOIDOSCOPY SIGMOIDOSCOPY [facility] Start: 1987 Lipid panel LIPID SCREENING [facility] Start: 1987 Screening for malign ant neoplasm of breast MAMMOGRAM SCREENING DISCUSSION [facility] Start: 07-07-1968 Screening for malign ant neoplasm of cervix CERVICAL CANCER SCREENING DISCUSSION [facility] Start: 07-07-1966 Third diphtheria, tetanus and acellular pertussis (DTaP) vaccination TDAP (ADULT) [facility] Start: 07-07-1966 Urine microalbumin profile DTAP,TDAP,TD (1 - Tdap) [facility] Start: 07-07-1965 HEPATITIS C SCREENING HEPATITIS C SC REENING [facility] Start: 07-07-1953 PNEUMOCOCCAL: 65+ (1 - PCV) PNEUMOCOCCAL: 65+ (1 - PCV) [facility] Start: 1947 Hepatitis C screening HEPATITI S C VIRUS SCREENING [facility] Start: 1947 Screening for osteoporosis DEXA SCAN DISCUSSION [facility] Start: 1947 Tetanus vaccination TETANUS [facility] End: 10-26-2022 AUGUSTINA SCREENING W [facility]AW AUGUSTINA SCREENING [facility] Radiology Routine Encounter for screening mammogram for malignant neoplasm of breast 1 Occurrences starting 09/26/2021 until 10/26/2022 [facility] Work Phone: Comment on above: 1 Occurrences starti ng 09/26/2021 until 10/26/2022 End: 10-11-2023 AUGUSTINA SCREENING W YAW AUGUSTINA SCREENING W YAW Radiology Routine Encounter for screening mammogram for malignant neoplasm of breast 1 Occurrences starting 09/11/2022 until 10/11/2023 [facility] Work Phone: Comment on above: 1 Occurrences starti ng 09/11/2022 until 10/11/2023 XR Pelvis and Hip - right Views XR HIP WITH PELVIS RIGHT Imaging Routine Primary osteoarthritis of right hip 05/14/2023 9:20 AM EST [facility] Work Phone: [facility] Immunizations Immunization Date Immunization Notes Care Provider Fa cility 02-10-2023 influenza virus vaccine, unspecified formulation Alfreda Lue [facility] 02-01-2022 influenza virus vaccine, unspecified formulation Alfreda Lue [facility] 08-13-2021 SARS-CoV-2 mRNA (swdbsjzdfeo-cjgx-uddsf se) vaccine Alfreda Lue [facility] 01-29-2021 SARS-CoV-2 (COVID-19 ) mRNA BNT-162b2 vax Alfreda Lue [facility] Comment on above: Result Comment: 2022: [id number] 06-20-2020 COVID-19 vaccine, ag e 12+ yr (PFIZER-BIONTECH - PURPLE TOP) Elton Dominguez RN Work Phone: [facility] 05-28-2020 SARS-CoV-2 (COVID-19 ) mRNA BNT-162b2 vax Alfreda Lumalini [facility] 05-18-2020 COVID-19 vaccine, ag e 12+ yr (PFIZER-BIONTECH - PURPLE TOP) Elton Dominguez RN Work Phone: [facility] 01-27-2020 influenza virus vaccine, split virus (incl. purified surface antigen) Elliot Starks Other [facility] Other 01-27-2020 influenza virus vaccine, unspecified formulation Alfreda Lue [facility] 01-20-2019 influenza virus vaccine, unspecified formulation Alfreda Lue [facility] 01-20-2019 influenza, high dose seasonal, preservative-free Elton Dominguez RN Work Phone: [facility] 03-09-2018 influenza virus vaccine, unspecified formulation Alfreda Lue [facility] 01-05-2018 influenza virus vaccine, split virus (incl. purified surface antigen) Elliot Starks Other [facility] Other 01-05-2018 influenza virus vaccine, unspecified formulation Alfreda Lue [facility] 01-05-2018 influenza, high dose seasonal, preservative-free Elton Dominguez RN Work Phone: [facility] 01-05-2018 pneumococcal polysaccharide vaccine, 23 valent Elton Dominguez RN Work Phone: [facility] 02-25-2017 influenza virus vaccine, unspecified formulation Alfreda Lue [facility] 02-17-2017 pneumococcal polysaccharide vaccine, 23 valent Alfreda Lue [facility] 02-05-2017 influenza virus vaccine, split virus (incl. purified surface antigen) Elliot Starks Other [facility] Other 02-05-2017 influenza virus vaccine, unspecified formulation Alfreda Lue [facility] 02-05-2017 pneumococcal conjuga te vaccine, 13 valent Alfreda Lue [facility] 02-01-2002 pneumococcal polysaccharide vaccine, 23 valent Elliot Starks Other [facility] Other Payers Date Payer Category Payer Self-pay 2014 Medicare AETNA MEDICARE A ETNA MEDICARE PPO [id number] 2014-Present [phone] [address] [place] [address] PPO [id number] 2014 Medicare [id number] 1959 Medicare [id number] 1945 Unknown [id number] 93 1945 Unknown [id number] 93 1945 Unknown [id number] 93 1945 Unknown [id number] 27 1945 Unknown [id number] 27 1945 Unknown [id number] 83 1945 Unknown [id number] [id number] 83 1945 Unknown [id number] 83 Private Health Insurance [employer]na [facility] PFFS M [id number] Unknown Unknown [id number] 31 Social History Date Type Detail Facility Start: 12-03-2015 End: 02-11-2023 Tobacco smoking status NHIS Ex-smoker [facility] End: 12-05-1990 History of tobacco use Current smoker [facility] Start: 12-03-2015 End: 05-14-2023 Cigarettes smoked current (pack per day) - Reported 1 [facility] Start: 12-03-2015 End: 05-14-2023 Tobacco use and exposure Smokeless tobacco non-user [facility] Start: 10-08-2020 Alcohol intake Current drinke r of alcohol (finding) [facility] Start: 1945 Sex Assigned At Not on file C [facility] Start: 05-14-2023 Sex Assigned At F [facility] End: 12-05-1990 History of tobacco use Cigarette Smoker [facility] Start: 1945 Sex Assigned At Female F [facility] Tobacco smoking status Never [facility] Start: 05-14-2023 Tobacco smoking stat us NHIS Never smoked tobacco [facility] Functional Status Date Assessment Result Facility 02-11-2023 Functional Status N/A [facility] Clinical Notes 09-26-2021 to 03-30-2023 Note Date [...] verbalizes understanding and agrees with tx plan. [facility] Other 10-11-2023 NoteChief Complaint Referral *Frequent UTI HPI Staff [...] states that she was put on a intermediate abx which has helped a lot. Pt [...] a hematuria workup including a scope, at [facility]. Occasional visible blood w/UTI. UA today shows moderate blood. Discussed doing a hematuria workup if the pt would like to. Pt states that she is not worried aboutthis and does not see the need to have t (more content not included)...[facility]:Result Comment: Electronically Signed By: Alfreda Miller MD\.br\Date and Time Signed: 02/11/23 12:13EDT\.br\Electronically Co-Signed By: Karlee Ramos\.br\Date and Time Co-Signed: 02/11/23 11:16 [id number] Hospital Discharge instructions Patient Education 02/11/2023 11:16:08 [...] provider. Document Revised: 08/29/2021 Document Reviewed: 08/29/2021 [employer] Patient Education 2022 [employer]. Follow Up Care 11/06/2022 15:31:52 With:Paul VILLEGAS, PERLA Araujo, URO Address: When:Within 3 Month(s) [facility] 07-17-2023 Evaluation note* Encounter Date Diagnosis Assessment Notes Treatment Notes Treatment Clinical Notes Nov, Dysuria (ICD-10 - R30.0) [facility] Other 06-29-2023 Evaluation note* Encounter Date Diagnosis Assessment Notes Treatment Notes Treatment Clinical Notes Oct, Frequent UTI (ICD-10 - N39.0) Pt requests Urology referral. Discussed also getting CT to move along process. Oct, Dyshidrotic eczema (ICD-10 - L30.1) Will treat with steroid cream prn [facility] Other 06-26-2023 Evaluation note* Encounter Date Diagnosis Assessment Notes Treatment Notes Treatment Clinical Notes Oct, Dysuria (ICD-10 - R30.0) [place] [facility] Other 05-11-2023 Miscellaneous Notes* Telephone Encounter - Matt Adams RN - 09/11/2022 11:43 AM EDT Order faxed to [facility] and pt is aware. Matt Adams RN * Telephone Encounter - Matt Adams RN - 09/11/2022 9:51 AM EDT Pt called to request yearly Mammogram order I have pended order as previously completed Pt requests to fax to Nori Lema [phone] BRM/HM: please review and sign if agreeable Matt Adams RN documented [facility] Evaluation note* Encounter Date Diagnosis Assessment Notes Treatment Notes Treatment Clinical Notes Aug, Dysuria (ICD-10 - R30.0) [facility] Other 03-16-2023 Evaluation note* Encounter Date Diagnosis [...] N32.81) chronic and improved on present med [facility] Other 02-20-2023 Evaluation note* Encounter Date Diagnosis Assessment Notes Treatment Notes Treatment Clinical Notes Jun, Dysuria (ICD-10 - R30.0) [facility] Other 02-03-2023 Evaluation note* Encounter Date Diagnosis Assessment Notes Treatment Notes Treatment Clinical Notes Jun, OAB (overactive bladder) (ICD-10 - N32.81) [facility] Other 02-01-2023 Evaluation note* Encounter Date Diagnosis Assessment Notes Treatment Notes Treatment Clinical Notes Jun, OAB (overactive bladder) (ICD-10 - N32.81) Patient request to try new medication reviewed side effect profile. Patient declines urology or [employer]PECT[employer] referral at this time. Jun, Essential hypertension (ICD-10 - I10) reviewed and updated medications she will follow-up with cardiology in Jun, Hypokalemia (ICD-10 - E87.6) Reviewed and updated medications. Discussed foods that are high in potassium Jun, Right lumbar pain (ICD-10 - M54.50) Follow-up with Dr. Rivera as scheduled in June. She does have limping with her gait. [facility] Other 08-18-2022 Note [id number]08-17-2022 NoteEducation Materials POST OPERATIVE TOTAL HIP DISCHARGE [...] can be done to rule of a DVT.[facility] HospitalExzzjrdw05-21-1631 [facility] Clinical Discharge Summary PERSON INFORMATION Name BETTIE BURNS Age 76 Years 1945 Sex FEMALE Language Central African PCP Raudel VILLEGAS, Elliot Nayak Marital Status Med Service Observation Acct# Arrival 12/16/2021 06:48:01 Visit Reason Surgery- Right Total Hip Acuity LOS 000 47:46 Address: [address] [place] [address] [place] [id number] Comment: PROVIDER INFORMATION VITALS INFORMATION Vital Sign [...] range between ( 1.3 and 2.9 ) [place] Abs#: 0.9 x103/mcL -- Normal range between ( 0.0 and 0.8 ) Auto Baso %: 0.2 % -- Normal range between ( 0.2 and 2.0 ) Auto [place] %: 11 % -- Normal range between [...] Instructions: Nicole PAULA [facility] PT instructions (MHAHUDDLEVELASQUEZ) Follow up: With: Address: When: Melchor Nicole [address], [address] [place] [address] Business (1) 12/24/2021 2:30 AM With: Address: When: Elliot Starks [address] (more content not included)...[facility] [id number] Betty sheets called pt to [...] [Verified on: 12/12/2021 12:34 EDT] Maddison Simons [facility]07-25-2022 NoteDrLobo Trevizo reviews PAT information and testing results. Ok to proceed with procedure, no orders. [Electronically Signed on: 11/25/2021 12:23 EDT] Steffanie Damian RN [Verified on: 11/25/2021 12:23 EDT] Steffanie Damian [facility]05-26-2022 Miscellaneous Notes* Telephone Encounter - Andrew Choi MD - 09/26/2021 5:13 PM EDT Okay to change to screening mammogram. Order signed. ASIYA Ford * Telephone Encounter - Elton Dominguez RN - 09/26/2021 2:33 PM EDT Pt scheduled for diagnostic mamm tomorrow @ [facility]. Hospital calls to ask if this could be changed to a screening mammogram since the pt is greater than 2 years from diagnosis? lEton Dominguez RN [facility] [facility] Future Appointments Appointment Date:05/27/2023 08:45:00 AM Scheduled Provider:Paul VILLEGAS, Alfreda Palacios Location:[facility] Appointment Type:URO Office Visit [facility] evaluation note* Diagnosis Encounter for screening mammogram for malignant neoplasm of breast- Primary Other screening mammogram documented in this encounter [facility] note* Diagnosis Malignant neoplasm of upper-outer quadrant of left breast in female, estrogen receptor positive (HCC)- Primary documented in this encounter [facility] noteNo InformationNort [facility] Other Evaluation note* Diagnosis Encounter for screening mammogram for malignant neoplasm of breast- Primary Other screening mammogram documented in this encounter [facility] noteNo assessment information [facility] Work Phone: History general Narrative - Reported* Type Description Date [...] Hx of breast cancer Surgical History CHOLECYSTECTOMY 2008 Surgical History Right hip replacement 12/16/2021 Hospitalization History SEE SURGICAL HX [facility] Other Hospital course Narrative No data available for this section [facility] progress note No data available for this section [facility] reason for referral (narrative)* Diagnostic Procedure Only (Routine) - Pending Review Specialty Diagnoses / Procedures Referred By Juan t Referred To Contact [facility] Diagnoses Encounter for screening mammogram for malignant neoplasm of breast Procedures AUGUSTINA SCREENING W YAW SCREENING DIGITAL BREAST TOMOSYNTHESIS BI SCREENING MAMMOGRAPHY BI 2-VIEW BREAST INC Andrew Miguel MD [address] [place] [address] [facility] [address] [address] Referral ID Status Reason Start Date Expiration Date Visits Requested Visits Authorized [id number] Pending Review Auto-Generat ed Referral 09/26/2021 10/26/2022 1 1 [facility] ([facility]ative)* Diagnostic Procedure Only (Routine) - Pending Review Specialty Diagnoses / Procedures Referred By Juan wren Referred To Contact [facility] Diagnoses Encounter for screening mammogram for malignant neoplasm of breast Procedures AUGUSTINA SCREENING W YAW SCREENING DIGITAL BREAST TOMOSYNTHESIS BI SCREENING MAMMOGRAPHY BI 2-VIEW BREAST INC Andrew Miguel MD [address] [facility] [place] [address] [facility] [address] [place] [address] Referral ID Status Reason Start Date Expiration Date Visits Requested Visits Authorized [id number] Pending Review Auto-Generat ed Referral 09/11/2022 10/11/2023 1 1 [facility] Summary Purpose Family History No Family History Records FoundNo Family History Records FoundNo Family History Records FoundNo Family History Records FoundNo Family History Records FoundNo Family History Records FoundNo Family History Records Found No data available for this section No Family History Records FoundNo Family History Records Found Advance Directives No Advanced Directives Records FoundNo Advanced Directives Records FoundNo Advanced Directives Records FoundNo Advanced Directives Records FoundNo Advanced Directives Records FoundNo Advanced Directives Records FoundNo Advanced Directives Records FoundNo Advanced Directives Records FoundNo Advanced Directives Records Found Reason for Referral Reason *FU 11/12 Jason office Diagnosis 1 Frequent UTI (N39.0) Referral Organization [facility] Referring Provider First Name Elliot Referring Provider Last Name Raudel Referring Provider Specialty Family Medi cine Referred Organization [facility] Referred Provider ALFREDA MILLER Referred Address [address],[place], [place],[address] Referred Provider Specialty Urology Referral Priority Routine General Notes Victoria Lisa 11:03:05 AM >received today, notes attached, along with labs and ins, waiting for notes to be locked before faxing Victoria Lisa 11/05/2022 02:44:05 PM >referral faxed Additional Source Comments INFORMATION SOURCE (unrecogn ized section and content) DATE CREATED AUTHOR 10/28/2017 [facility] DATE CREATED AUTHOR AUTHOR'S ORGANIZ ATION 03/21/2020 [facility] DATE CREATED AUTHOR AUTHOR'S ORGANIZ ATION 09/13/2021 [facility] dical Specialist DATE CREATED AUTHOR AUTHOR'S ORGANIZ ATION 01/13/2022 [facility] DATE CREATED AUTHOR AUTHOR'S ORGANIZ ATION 06/11/2022 [facility] DATE CREATED AUTHOR AUTHOR'S ORGANIZ ATION 09/13/2022 [facility] DATE CREATED AUTHOR AUTHOR'S ORGANIZ ATION 11/18/2022 [facility] DATE CREATED AUTHOR AUTHOR'S ORGANIZ ATION 02/18/2023 [facility] DATE CREATED AUTHOR AUTHOR'S ORGANIZ ATION 05/15/2023 [facility] [employer] Source Comments (unrecognize d section and content) In the event this informatio n is protected by the Federal Confidentiality of Alcohol and Drug Abuse Patient Records regulations: The Federal rules restrict any use of the information to criminally investigate or prosecute any alcohol or drug abuse patient.[facility] CenterIn the event this information is protected by the Federal Confidentiality of Alcohol and Drug Abuse Patient Records regulations: The Federal rules restrict any use of the information to criminally investigate or prosecute any alcohol or drug abuse patient.[facility] CenterIn the event this information is protected by the Federal Confidentiality of Alcohol and Drug Abuse Patient Records regulations: The Federal rules restrict any use of the information to criminally investigate or prosecute any alcohol or drug abuse patient.[facility] Reason for Visit (unrecogniz ed section and content) Reason Comments Radiology Mammogram Reason Comments Lab Orders Reason Comments Orders Specialty Diagnoses / Procedures Referred By Contac t Referred To Contact Diagnoses Primary osteoarthritis of right hip Procedures XR HIP WITH PELVIS RIGHT Miko Ohara MD [address] [facility] [place] [address] Referral ID Status Reason Start Date Expiration Date V isits Requested Visits Authorized [id number] New Request 05/06/2023 05/30/2024 1 1 Care Teams (unrecognized sec tion and content) 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 Start Date End Date Elliot Starks MD [address] [place] [address] PCP - General Family Practice 11/26/15 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 Start Date End Date Elliot Starks MD [address] [place] [address] PCP - General Family Practice 11/26/15 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 [employer] provides no warranty or guarantee of the accuracy or completeness of information in this document.
[2023-05-16 06:01] LABS: Anion Gap 12.8; BUN Creatinine Ratio 32.8; Carbon Dioxide 29.8 mmol/L (21.0-32.0); Chloride 102 mmol/L (98-107); Estimated GFR (African America 54 (>=60); Estimated GFR (Non-African Ame 44 (>=60); Glucose 129 mg/dL (74-106); Potassium 3.6 mmol/L (3.5-5.1); Sodium 141 mmol/L (136-145); Troponin I High Sensitivity 7.7 pg/mL (4.0-51.3)
--- NOTE | 2023-05-16 06:26 | PC.NURSE ---
Dr. Mesa notified of not having the appropriate size soft cervical collar for pt.
[2023-05-16] MEDS: 0.9 % SODIUM CHLORIDE 1,000 ML 999 ML IV (06:46)
[2023-05-16 08:34] LABS: Troponin I High Sensitivity 7.8 pg/mL (4.0-51.3)
== END 2023-05-16 08:52 | disposition home or self-care (01) ==
PROVIDERS: Emergency Medicine; Emergency Provider Internal Medicine; PCP Family Medicine
DX: R07.89 Other chest pain (principal); M54.6 Pain in thoracic spine; Z79.01 Long term (current) use of anticoagulants; Z79.899 Other long term (current) drug therapy; I48.91 Unspecified atrial fibrillation; Z87.891 Personal history of nicotine dependence; Z85.3 Personal history of malignant neoplasm of breast; H91.90 Unspecified hearing loss, unspecified ear; I10 Essential (primary) hypertension; M19.90 Unspecified osteoarthritis, unspecified site; Z98.890 Other specified postprocedural states; Z90.49 Acquired absence of other specified parts of digestive tract; Z90.710 Acquired absence of both cervix and uterus; Z96.649 Presence of unspecified artificial hip joint
CPT/HCPCS: 36415; 71045; 80048; 84484; 85025; 93005; 96365; 96375; 99285; J2930; J3360; J3475

== ENCOUNTER 2023-05-18 13:39 | Outpatient (OUT) | payer MEDICARE, SELFPAY ==
--- OUTSIDE RECORDS SUMMARY | 2023-05-18 13:43 | XMS_ITS | CCD ---
Author Name Unknown Address [address] [place] [address] Organization [facility] Care Team Providers Care Recreational Counselor Name Role Phone PHYSICIAN, DEFAULT Unavailable Unavailable PHYSICIAN, DEFAULT Unavailable Unavailable Elliot Starks MD Primary Care Provider DR ELLIOT STARKS Primary Care Unavailable ANETA [...] MANN Attending Unavailable DERDUONG, LUANA Consulting Unavailable JOAQUÍN ATKINS Consulting Unavailable Elliot Starks Unavailable Elliot Starks MD Primary Care Provider [phone] MD Elliot Starks Attending Provider Elliot Starks Admitting Unavailable Elliot Starks Attending Unavailable ELLIOT STARKS Primary Care Physician Alfreda Miller Attending Unavailable ELLIOT STARKS Referring Unavailable Alfreda Miller Attending Unavailable Elliot Starks MD Primary Care Provider SELF, SELF Referring Unavailable MIKO OHARA Attending Unavailable ELLIOT STARKS Primary Care Unavailable MIKO OHARA Attending Unavailable MIKO OHARA Referring Unavailable ELLIOT STARKS Primary Care Unavailable MIKO OHARA Attending Unavailable MIKO OHARA Referring Unavailable ELLIOT STARKS Primary Care Unavailable Allergies Allergy Classification Reported Allergen(s) Allergy Type Date of Onset Reaction(s) Facility (3 sources) Acetaminophen / HYDROcodone Drug Allergy 03-19-20 Unknown [facility] (16 sources) Baclofen; 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: [baclofen] Drug Allergy 03-19-20 Unknown [facility] (6 sources) Codeine; 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: [codeine] Drug Allergy 08-09-19 09 Unknown [facility] (4 sources) levoFLOXacin; 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: [levofloxacin] Drug Allergy 03-19-20 17 Unknown [facility] (17 sources) Morphine; 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: [morphine] Drug Allergy 08-09-19 09 [facility] (4 sources) oxyCODONE Drug Allergy 12-03-19 16 [facility] (2 sources) Penicillins Drug Allergy 12-03-19 16 [facility] (1 source) Baclofen Drug Allergy [facility] (1 source) Codeine Drug Allergy [facility] (13 sources) levoFLOXacin; 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: [Levaquin] Drug Allergy Unknown [facility] (1 source) Morphine Drug Allergy 05-04-18 94 [facility] (1 source) oxyCODONE Drug Allergy 05-04-19 05 [facility] (1 source) Penicillins Drug allergy (disorder) 05-04-18 93 [facility] (2 sources) traMADol; 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: [Ultram] Drug Allergy [facility] (11 sources) Codeine Drug Allergy Unknown [facility] Other (13 sources) Penicillin; 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: [penicillin] Drug Allergy Unknown [facility] (13 sources) traMADol; 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: [tramadol] Drug Allergy 05-14-19 24 Unknown [facility] (12 sources) zolpidem; 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: [zolpidem] Drug Allergy Unknown [facility] (1 source) Penicillins Drug Allergy 12-03-19 16 [facility] (1 source) Morphine; 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: [Morphine Sulfate] Drug Allergy [facility] (1 source) zolpidem; 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: [Ambien] Drug Allergy [facility] (1 source) Non-steroidal anti-inflammatory agent Drug allergy 02-02-20 13 Unknown [facility] Other (1 source) sulfADIAZINE Drug Allergy Comment:Sulfa [facility] Other (1 source) Ultram *ANALGESICS - OPIOID* Propensity to adverse reactions Unknown [facility] Other (1 source) Vioxx *ANALGESICS - ANTI-INFLAMMATORY * Propensity to adverse reactions Unknown [facility] Other (1 source) Penicillin G Benzathine & Proc Drug allergy Unknown [facility] Other (1 source) Morphine Sulfate (Concentrate) *ANALGESICS - OPIOI Propensity to adverse reactions Unknown [facility] Other (1 source) Allergies Reconciled Propensity to adverse reactions Unknown [facility] Other (1 source) patient allergy list reviewed by nurse or physicia Propensity to adverse reactions 02-02-20 13 Comment:Done [facility] Other (1 source) Vicodin *ANALGESICS - OPIOID* Propensity to adverse reactions Unknown [facility] Other (1 source) calcitonin Drug allergy Unknown [facility] Other (1 source) Penicillins Propensity to adverse reactions to drug 05-14-[address] [facility] Medications Current Medications Medication Drug Class(es) Dates [...] tab daily x 4 more days for Mar, Active Start: 07-17-2022 Azithromycin 2 50 [...] x 1 month, then 2x/week for maintainence, [facility]/pharmacy #[id number], 165, cm, 02/11/23 10:41:00 EDT, Height/Length [...] Daily, # 30 tab(s), Refills(s) 11, Pharmacy: [facility]/pharmacy #[id number], 165, cm, 02/11/23 10:41:00 EDT, Height/Length [...] Start: 08-11-2022 take 1 tablet by mirza every twelve hours Bactrim DS 800-160 MG [...] Start: 08-23-2018 take 1 capsule by mo ut at bedtime Temazepam 30 MG 1 capsule [...] 06-11-2022 Chronic Other aftercare (1 source) Other longterm (current) drug therapy; 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: [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 Comment on above: Performed By: #### E SR, CREACT #### [place] [address] ESRon 05-14-2023 ESR (Bld) [Velocity] 31 mm/h High 0-30 [facility] Comment on above: Performed By: #### E SR, CREACT #### [place] [address] Ambulatory Visit Summaryon 1 Ambulatory Visit Summary BETTIE BURNS :1945 Visit Date:02/11/2023 Ambulatory Visit Instructions Your Diagnosis Frequent UTI Microscopic hematuria Mixed incontinence Anticoagulated History of breast cancer Former smoker Tests Performed Urnls Dip Stick Auto w/o Microscopy POC 90062 Your Care Team Attending Physician - Paul [...] VILLEGAS, Alfreda Palacios Where: [facility] Lab Reportson 02-11-2023 Lab Reports [id number] 1#1.00TIFF [facility] Patient Educationon 02-12-20 23 Patient Education [...] provider. Document Revised: 08/29/2021 Document Reviewed: 08/29/2021 [employer] Patient Education ? 2022 [employer] Normal [facility] Physician Referralon 023 Physician Referral [phone] [id number] #[id number] Normal [facility] Urinalysis - DIPSTICKon 10-03 Appearance (U) cloudy [employer] Other Bilirubin Ql (U) Blazent ast [employer] Other Color (U) yellow [facility] Other Glucose Ql (U) Negative [employer] Other Hemoglobin Ql (U) [employer] Other Ketones Ql (U) Negative [facility] Other Leukocyte esterase Test strip Ql (U) moderate [facility] Other Nitrite Ql (U) Positive [employer] Other pH (U) 5 [pH] [facility] Other Protein Ql (U) Negative [employer] Other Specific gravity (U) [Rel density] 1.010 [facility] Other Urobilinogen (U) [Mass/Vol] off chart [facility] Other Urinalysis - DIPSTICK [facility] Other Urine Cultureon 10-27-2022 Bacteria identified Cx Nom (U) ORGANISM: Escherichia coli (O:ESCCOL) [place] Count >100,000 Aerobic AUBREY Charge (NMIC56) ----- [...] RESISTANT TO ALL B-LACTAM DRUGS. PERFORMED BY: [address] [place] [id number] PATHOLOGIST FLORAL ARRANGER JOSE GUADALUPE FERGUSON M.D. [facility] Comment on above: Performed By: #### C UU #### [place] [id number] [facility] CNPIngrid 09-11-2022 CNPN Telephone (HEMTSA) BETTIE BURNS ([id number]) 1945 F Date Time Provider Department 09/11/22 MATT ADAMS During your visit today, we recorded the following information about you: Matt Adams RN 09/11/2022 9:54 AM Signed Pt called to request yearly Mammogram order I have pended order as previously completed [phone] BR/: please review and sign if agreeable RICARDO Lopez RN 09/11/2022 11:45 AM Signed [facility] and pt is aware. Matt Adams RN [...] of breast [Z12.31] Order(s):AUGUSTINA SCREENING W YAW [[id number]] Order #: [id number] FUTURE Prescriptions as of 09/11/2022 - lisinopril [...] Status:Closed by MATT ADAMS on 09/11/22 Normal [facility] Urinalysis - DIPSTICKon 02-2 Appearance (U) cloudy [employer] Other Bilirubin Ql (U) Negative [employer] Other Color (U) pale yellow [facility] Other Glucose Ql (U) Negative [employer] Other Hemoglobin Ql (U) non hem-trace [employer] Other Ketones Ql (U) trace [employer] Other Leukocyte esterase Test strip Ql (U) moderate [facility] Other Nitrite Ql (U) Negative [employer] Other pH (U) 5 [pH] [facility] Other Protein Ql (U) trace [employer] Other Specific gravity (U) [Rel density] 1.005 [facility] Other Urobilinogen (U) [Mass/Vol] normal [facility] Other Urinalysis - DIPSTICK [facility] Other CULTURE URINEon 06-11-2022 CULTURE URINE Isolate [...] F Trimethoprim/Sulfame thoxazole <=20 S F Normal [facility] Comment on above: Performed By: #### U RCX #### [facility] [address] [place] [address] Dr. Florencio Narayanan CARDIAC AMBER ADMITon 023 CK [Catalytic activity/Vol] 44 U/L Normal 26-192 [facility] Comment on above: Performed By: #### C LILIAN LOZANO CMADM #### [facility] [address] [place] [address] Dr. Florencio Narayanan CK.MB [Mass/Vol] ng/mL Normal <=3.60 [facility] Comment on above: Performed By: #### C BLAKE LIPA CMADM #### [facility] [address] [place] [address] Dr. Florencio Narayanan HSTROP 14.6 pg/mL Normal 4.0-51.3 [facility] Comment on above: Result Comment: CUT- OFF POINTS HAVE BEEN ESTABLISHED BASED ON THE FOURTH UNIVERSAL DEFINITIONS OF MYOCARDIAL INFARCTION. THE UPPER REFERENCE LIMIT (URL) OF TROPONIN, DEFINED THE 99TH PERCENTILE OF cTnI DISTRIBUTION IN A REFERENCE POPULATION, HAS BEEN CONFIRMED THE DECISION THRESHOLD FOR [place] DIAGNOSIS. Performed By: #### C BLAKE LIPA, CMADM #### [facility] [address] [place] [address] Dr. Florencio Narayanan UMER 109 ng/mL Critically high 9-82 [facility] Comment on above: Performed By: #### C LILIAN LOZANO, CMADM #### [facility] [address] [place] [address] Dr. Florencio Narayanan CBC AUTO DIFFon 06-09-2022 BASO # 0.1 103/ul Normal 0.0-0.1 [facility] Comment on above: Performed By: #### C BC #### [facility] [address] [place] [address] Dr. Florencio Narayanan Basophils/100 WBC (Bld) 0.4 % Normal 0.2-2.0 [facility] Comment on above: Performed By: #### C BC #### [facility] [address] [place] [address] Dr. Florencio Narayanan EO # 0.0 103/ul Normal 0.0-0.7 [facility] Comment on above: Performed By: #### C BC #### [facility] [address] [place] [address] Dr. Florencio Narayanan Eosinophils/100 WBC (Bld) 0.2 % Critically low 0.9-7.0 [facility] Comment on above: Performed By: #### C BC #### [facility] [address] [place] [address] Dr. Florencio Narayanan Erythrocyte distribution width (RBC) [Ratio] 12.3 % Normal 11.0-15.0 [facility] Comment on above: Performed By: #### C BC #### [facility] [address] [place] [address] Dr. Florencio Narayanan Hematocrit (Bld) [Volume fraction] 38.4 % Normal 36.0-48.0 [facility] Comment on above: Performed By: #### C BC #### [facility] [address] [place] [address] Dr. Florencio Narayanan Hemoglobin (Bld) [Mass/Vol] 12.7 g/dL Normal 12.0-16.0 [facility] Comment on above: Performed By: #### C BC #### [facility] [address] [place] [address] Dr. Florencio Narayanan IG # 0.06 10e3/ul Critically high 0.00-0.03 [facility] Comment on above: Performed By: #### C BC #### [facility] [address] [place] [address] Dr. Florencio Narayanan IG % 0.5 % Normal 0.0-0.5 [facility] Comment on above: Performed By: #### C BC #### [facility] [address] [place] [address] Dr. Florencio Narayanan LYMPH # 1.0 103/ul Critically low 1.2-3.8 [facility] Comment on above: Performed By: #### C BC #### [facility] [address] [place] [address] Dr. Florencio Narayanan Lymphocytes/100 WBC (Bld) 8.4 % Critically low 20.5-60.0 [facility] Comment on above: Performed By: #### C BC #### [facility] [address] [place] [address] Dr. Florencio Narayanan MANUAL DIFF REQ NO Normal [facility] Comment on above: Performed By: #### C BC #### [facility] [address] [place] [address] Dr. Florencio Narayanan MCH (RBC) [Entitic mass] 32.4 pg Normal 26.7-34.0 [facility] Comment on above: Performed By: #### C BC #### [facility] [address] [place] [address] Dr. Florencio Narayanan MCHC (RBC) [Mass/Vol] 33.1 g/dL Normal 29.9-35.2 [facility] Comment on above: Performed By: #### C BC #### [facility] [address] [place] [address] Dr. Florencio Narayanan MCV (RBC) [Entitic vol] 98.0 fL Normal 81.0-99.0 [facility] Comment on above: Performed By: #### C BC #### [facility] [address] [place] [address] Dr. Florencio Narayanan MONO # 1.6 103/ul Critically high 0.3-0.8 [facility] Comment on above: Performed By: #### C BC #### [facility] [address] [place] [address] Dr. Florencio Narayanan Monocytes/100 WBC (Bld) 13.1 % Critically high 1.7-12.0 [facility] Comment on above: Performed By: #### C BC #### [facility] [address] [place] [address] Dr. Florencio Narayanan NEUT # 9.5 103/ul Critically high 1.4-6.5 [facility] Comment on above: Performed By: #### C BC #### [facility] [address] [place] [address] Dr. Florencio Narayanan Neutrophils/100 WBC (Bld) 77.4 % Critically high 43.0-75.0 [facility] Comment on above: Performed By: #### C BC #### [facility] [address] [place] [address] Dr. Florencio Narayanan Platelet mean volume (Bld) [Entitic vol] 9.4 fL Critically low 9.5-13.5 [facility] Comment on above: Performed By: #### C BC #### [facility] [address] [place] [address] Dr. Florencio Narayanan PLT 140 103/ul Critically low 150-450 [facility] Comment on above: Performed By: #### C BC #### [facility] [address] [place] [address] Dr. Florencio Narayanan RBC 3.92 106/ul Critically low 4.20-5.40 [facility] Comment on above: Performed By: #### C BC #### [facility] [address] [place], [place] [address] Dr. Florencio Narayanan WBC 12.2 103/ul Critically high 4.0-11.0 [facility] Comment on above: Performed By: #### C BC #### [facility] [address] [place], [place] [address] STROKE HEAD WOon [...] LUANA VILLAFANA Date: 2022-06-09 12:24 Normal [facility] Covid-19 PCR ([facility])on SARS-CoV-2 (COVID-19) RNA CHRISTOPHER+probe Ql (Unsp spec) Not detected Normal NOT DETECTED [facility] Comment on above: Result Comment: When diagnostic [...] for this test is supported by the [place] of Health and Human Service's declaration that [...] used). Performed By: #### C VDTB #### [facility] [address] [place] [address] Dr. Florencio HUERTA URINE PROFILEon 3 Bilirubin Ql (U) Negative Normal NEGATIVE [facility] Comment on above: Performed By: #### Malini PIZANO UMICRO #### [facility] [address] [place] [address] Dr. Florencio Narayanan Clarity (U) CLEAR Normal CLEAR [facility] Comment on above: Performed By: #### Malini PIZANO UMICRO #### [facility] [address] [place] [address] Dr. Florencio Narayanan Color (U) LT. YELLOW Normal YELLOW [facility] Comment on above: Performed By: #### Malini PIZANO UMICRO #### [facility] [address] [place] [address] Dr. Florencio CONLEY A micrscopic examination will be performed if indicated. Normal [facility] Comment on above: Performed By: #### Malini PIZANO UMICRO #### [facility] [address] [place] [address] Dr. Florencio Narayanan Glucose Ql (U) Negative Normal NEGATIVE [facility] Comment on above: Performed By: #### Malini PIZANO UMICRO #### [facility] [address] [place] [address] Dr. Florencio Narayanan Hemoglobin Ql (U) LARGE Abnormal NEGATIVE [facility] Comment on above: Performed By: #### Malini PIZANO UMICRO #### [facility] [address] [place] [address] Dr. Florencio Narayanan Ketones Ql (U) TRACE Abnormal NEGATIVE [facility] Comment on above: Performed By: #### Malini PIZANO UMICRO #### [facility] [address] [place] [address] Dr. Florencio Narayanan LEUKOCYTES LARGE Abnormal NEGATIVE [facility] Comment on above: Performed By: #### E RUR, UMICRO #### [facility] [address] [place] [address] Dr. Florencio Narayanan Nitrite Ql (U) Positive Abnormal NEGATIVE [facility] Comment on above: Performed By: #### Malini PIZANO UMICRO #### [facility] [address] [place] [address] Dr. Florencio Narayanan pH (U) 5.5 [pH] Normal 5-9 [facility] Comment on above: Performed By: #### Malini PIZANO UMICRO #### [facility] [address] [place] [address] Dr. Florencio Narayanan SPEC GRAVITY 1.010 Normal 1.005-<=1.025 [facility] Comment on above: Performed By: #### Malini PIZANO UMICRO #### [facility] [address] [place] [address] Dr. Florencio Narayanan UA PROTEIN TRACE Normal NEGATIVE/ TRACE [facility] Comment on above: Performed By: #### Malini PIZANO ICRO #### [facility] [address] [place] [address] Dr. Florencio Narayanan UR MICRO IND INDICATED Normal [facility] Comment on above: Performed By: #### Malini PIZANO ICRO #### [facility] [address] [place] [address] Dr. Florencio Narayanan Urobilinogen Qn (U) 0.2 {Zenia'U}/dL Normal 0.2 - 1.0 [facility] Comment on above: Performed By: #### Malini PIZANO UMICRO #### [facility] [address] [place] [address] Dr. Florencio Narayanan LIPASEon 06-09-2022 Lipase [Catalytic activity/Vol] 68.0 U/L Critically low 73.0-393.0 [facility] Comment on above: Performed By: #### C MP, LIPA, CMADM #### [facility] [address] [place] [address] Dr. Florencio Narayanan PROF 14(COMP METB)on 023 Albumin [Mass/Vol] 2.5 g/dL Critically low 3.4-5.0 [facility] Comment on above: Performed By: #### C MP, LIPA, CMADM #### [facility] [address] [place] [address] Dr. Florencio Narayanan Albumin/Globulin [Mass ratio] 0.6 {ratio} Normal [facility] Comment on above: Performed By: #### C MP, LIPA, CMADM #### [facility] [address] [place] [address] [address] Florencio Narayanan ALP [Catalytic activity/Vol] 150 U/L Critically high 46-116 [facility] Comment on above: Performed By: #### C MP, LIPA, CMADM #### [facility] [address] [place] [address] Dr. Florencio Narayanan ALT [Catalytic activity/Vol] 27 U/L Normal 14-59 [facility] Comment on above: Performed By: #### C MP, LIPA, CMADM #### [facility] [address] [place] [address] Dr. Florencio Narayanan Anion gap [Moles/Vol] 12.8 mmol/L Normal [facility] Comment on above: Performed By: #### C MP, LIPA, CMADM #### [facility] [address] [place] [address] Dr. Florencio Narayanan AST [Catalytic activity/Vol] 31 U/L Normal 15-37 [facility] Comment on above: Performed By: #### C MP, LIPA, CMADM #### [facility] [address] [place] [address] Dr. Florencio Narayanan Bilirubin [Mass/Vol] 1.1 mg/dL Critically high 0.2-1.0 [facility] Comment on above: Performed By: #### C MP, LIPA, CMADM #### [facility] [address] [place] [address] Dr. Florencio Narayanan Calcium [Mass/Vol] 9.1 mg/dL Normal 8.5-10.1 [facility] Comment on above: Performed By: #### C MP, LIPA, CMADM #### [facility] [address] [place] [address] [address] Florencio Narayanan Chloride [Moles/Vol] 95 mmol/L Critically low 98-107 [facility] Comment on above: Performed By: #### C MP, LIPA, CMADM #### [facility] [address] [place] [address] [address] Florencio Narayanan CO2 [Moles/Vol] 29.4 mmol/L Normal 21.0-32.0 [facility] Comment on above: Performed By: #### C MP, LIPA, CMADM #### [facility] [address] [place] [address] [address] Florencio Narayanan Creatinine [Mass/Vol] 1.34 mg/dL Critically high 0.55-1.02 [facility] Comment on above: Performed By: #### C MP, LIPA, CMADM #### [facility] [address] [place] [address] [address] Florencio Narayanan EGFR-AF MALAGASY 47 mL/min/1.73m2 Critically low >=60 [facility] Comment on above: Performed By: #### C MP, LIPA, CMADM #### [facility] [address] [place] [address] [address] Florencio Narayanan EGFR-NON AF MALAGASY 39 mL/min/1.73m2 Critically low >=60 [facility] Comment on above: Performed By: #### C MP, LIPA, CMADM #### [facility] [address] [place] [address] [address] Florencio Narayanan Globulin (S) [Mass/Vol] 4.3 g/dL Normal [facility] Comment on above: Performed By: #### C MP, LIPA, CMADM #### [facility] [address] [place] [address] [address] Florencio Narayanan Glucose [Mass/Vol] 118 mg/dL Critically high 74-106 T [facility] Comment on above: Performed By: #### C MP, LIPA, CMADM #### [facility] [address] [place] [address] [address] Florencio Narayanan Potassium [Moles/Vol] 3.2 mmol/L Critically low 3.5-5.1 [facility] Comment on above: Performed By: #### C LILIAN LOZANO CMADM #### [facility] [address] [place] [address] Dr. Florencio Narayanan Protein [Mass/Vol] 6.8 g/dL Normal 6.4-8.2 [facility] Comment on above: Performed By: #### C LILIAN LOZANO CMADM #### [facility] [address] [place], [place] [address] Dr. Florencio Narayanan Sodium [Moles/Vol] 134 mmol/L Critically low 136-145 [facility] Comment on above: Performed By: #### C LILIAN LOZANO CMADM #### [facility] [address] [place] [address] Dr. Florencio Narayanan Urea nitrogen [Mass/Vol] 29.0 mg/dL Critically high 7.0-18.0 [facility] Comment on above: Performed By: #### C LILIAN LOZANO CMADM #### [facility] [address] [place] [address] Dr. Florencio Narayanan Urea nitrogen/Creatinin e [Mass ratio] 21.6 mg/mg Normal [facility] Comment on above: Performed By: #### C LILIAN LOZANO CMADM #### [facility] [address] [place] [address] Dr. Florencio Narayanan URINE MICROSCOPIC ONLYon BACTERIA SMALL Abnormal NONE SEEN [facility] Comment on above: Performed By: #### LIYAH LERO #### [facility] [address] [place] [address] Dr. Florencio Narayanan Bacteria identified Cx Nom (U) INDICATED Normal [facility] Comment on above: Performed By: #### LIYAH LERO #### [facility] [address] [place] [address] Dr. Florencio Narayanan CAST NONE SEEN Normal NONE SEEN [facility] Comment on above: Performed By: #### LIYAH LERO #### [facility] [address] [place] [address] Dr. Florencio Narayanan Crystals LM Nom (Urine sed) NONE SEEN Normal NONE SEEN [facility] Comment on above: Performed By: #### Malini PIZANO UMICRO #### [facility] [address] [place] [address] Dr. Florencio Narayanan Epithelial cells LM Ql (Urine sed) FEW Abnormal NONE SEEN /RARE [facility] Comment on above: Performed By: #### Malini PIZANO UMICRO #### [facility] [address] [place] [address] Dr. Florencio Narayanan MUCOUS NONE SEEN Normal NONE SEEN [facility] Comment on above: Performed By: #### Malini PIZANO UMICRO #### [facility] [address] [place] [address] Dr. Florencio Narayanan RBC 2-5 Abnormal 0-2 [facility] Comment on above: Performed By: #### Malini PIZANO UMROSETTERO #### [facility] [address] [place] [address] Dr. Florencio Narayanan WBC 10-20 Abnormal NONE SEEN [facility] Comment on above: Performed By: #### Malini PIZANO UMICRO #### [facility] [address] [place] [address] Dr. Florencio Narayanan XR CHEST 2 Von [...] JOAQUÍN ATKINS Date: 2022-06-09 12:24 Normal [facility] CULTURE URINEon 04-16-2022 CULTURE URINE Isolate 1 [...] Trimethoprim/Sulfame thoxazole >=320 R F Normal [facility] Comment on above: Performed By: #### C BC #### [facility] [address] [place] [address] Dr. Florencio Narayanan Coding Summaryon 01-13-2022 Coding Summary HTMLBase 64 XedgirobOXw3oQr+PGhl YWQ+KL7DTQEsO47iqHAj wI2JY1jMVQ6QXSKWKTCG IT6BQH1ceXJ0XFkqK3Qz biAv RlutaRFsEI32JXi4ILF2 wYbyQFxmyW0joWJwT2t3 AyJqKL63rZ45ZOrhDCAe GrG2GvHkscdgbAYh A7rvQaOrkMMkBdc+PHRh YmxlIHdpZHRoPScxMDAl WpVhuFppIQ3aWz3lXVTh LWNvbGxhcHNlOiBj e8drNMIcYIahUU0qdKzr R5JjmDT1WGRyw9h3Sa59 dHI+HIYwVWP4sLjnJLip p183BzVyw4yrFLA1 hVSvMIrxTUS0I27jz6B1 PMUmFSJvZAW2rUB0dA7k pIctwvndW7NphSWhRaV7 WAC5rTQjtF8nfGru emjveL1wMka+C67OMR7K OUGRBQ4IYgr5Y5FuNauh dHI+AB31WSOmTZ51cITb jKLkg7vcyUu6IoTi XMSzZJX6hPtzVLmtu5St LQLoC14dlGVeq2K8DLTv vIozrVEjYvOzrWV5oB9x STqtcpaav9dryhff Xfcwz6jtsp06uP27K17v ZBzoGIPcHYN7QLMwOCQw eRwpwa7gbJ6pSn0+IDxj u5erq3menMy7VbJy NRQbjyThiCxbAIL1w5Gk Ok46H1KzaVkdg4ArOub0 px15gWBgq5H9uLA5BXqh HXIefZ0nXXxgBfS3 IEOjQqQeoL46pWCqGQin Gu4plKnvoJzpKZ5wGBPb ygtdJAAagU0zGOEwpHYx bTjvSZ9zCNJxjiym f909FeBoPJG7SIXydJRd V0RefL9gWsXmQBFoHOAb I4EmqGZmFPrwC194REtu NsT5UCKwkfToW1Nv DZRwiLamFpS5m4W1Ej4X c6PdllxwWLX9XPakBQV3 UqDfBtOhLeK9X4JpHie7 SIAdyBrbRC9vB7Mw GGBrmbqifiyruJG1EQQi AAXhaR43eFDwZEkrYz1u d2K6c905YGOsHSXaxA20 Un3acUjcLNFbtFFK vB2ufyzbu0yelskiNiWy DZKxZJd7MGj4IZTgiCus UtZuYIT8VuH0HND3hDRd mK6jePaenjglmB7h Oyc+H80ffX5sENX7COS9 uluyDCZzfhEqCN30BG47 F9LxYhlrqDVsfCC+PGRp gsZyxFjsHB7pIxNv j6rsu3VzHLtnV0SnACOs CHxlZry1FVZzGLE7tRG2 bJ2iUKIuSLmcu8X2hLW4 S5NvfsIogo8it0po TMQkHUdrZ03udOElt6U5 QIGdfIG9FJEfvKtmLxXu pC07Ttk+ZRPdaFzzw0Zo Nhomi4dyz0uarGg7 IjMwJSIgdmFsaWduPSJ0 r8ZoAa54Y61bPSfjFDYo YZIgYHEcBMLifIvmcw2g iR7jNo7+PGNvbCB3 mGF8nN8qHVYuAlV1RQqm N365RqWyoMVcPcoqt3mb n6cqbTn5JvZkXCIhszVv mSrlKZD8o1OtQi96 S29zXOygCHBkYDWzQLFl UMKidYplyb7ohQ8pAn5+ HY7cn7osvy09bO59pQT+ AYNqJPK9pOtxNGxf QCGshM7dJEfoBrQ3GMFn SrQfdB10fVPrXMdjXu7u aEzjjLtqKD7sZNIoljcv g643MoSik9wuXDBm dLEjFGgqAHK7L19vq4X8 FILbFTDnIUR5gWR4nN0r bGlnbjogbGVmdDsgdmVy aVabRJiuYTrmL129 IHRvcDsnPlBhdGllbnQg AbMaGBm5P1GpOhz6OUVi uKhqZH7yaSImBVrlJe0j dJxpgYzwOS1lAVRa tcxrk183QsLrl5uqJXGb uCUuSDbvMQB4N73sb2B6 NDZiYYXvELY4jOW0wN5t bGlnbjogbGVmdDsg izSueKhdECriZMqwX450 IHRvcDsnPkJpcnRoIERh sKU5VA39EB83rUAxm9L5 xZS0F4YeNNAsscvt qsnzfBM8DFYaTSZtiG37 Cd6roUbvWr4wTZPmSEY2 YSAryNZhB0XuoQ5bNdAd KGDqTWFoI6LdgCGk DVhrV822BTucLnJ5YTXo imHcU3EsSKSpwYrbOaC1 g2M4Ro2UL2L7CZ19OD13 hUVcq5D1dZK2C7Za UOTveisygvypeQT0EONs YFDryB17Eh2rfUezGd6w ENNfIQN0LEOohORtT4Vd rC3aHuYeKGPuTHTd C5HfhHPyJVmzD645WIlq LbM1MBFpnhWiJ0JxURMc hJdtTmU5e0T7Fv6LJVv3 KB81SD45oYMor8K5 kOX3D7OqABAkwvenjnqn lCB7DTYaEMOtuV72Wu5r pQngTr6aVFWcHIA3RRRy oTXzM0DnmL0zXsHq CMVjYIArO4JdsTZwEHmt W287PPadGzH2WLWrccZm W4PaXFYgpLttKzW6g2V2 Ru4MVUXlJQ42OSF4 hXO4LI19JX99L3TmYsot dGFibGU+PHRhYmxlIHdp ZHRoPScxMDAlJyBzdHls YF1aEa7fJCIoYWTc gYdkvWSmFbIym1hlYHSl CPxtJA5brLouC4OmqYF6 SCPwt6i2Ik81R91gL6Lf dXA+FRVrbLW0vJV8 aN8tIlRxMmL4DNgvO444 TdQxwNSgXobwt9bld4af rVm5SmQ2ERUmeiKrmJuo PQT5k3PoZm35T41y IHdpZHRoPSIxNSUiIHZh gUptgb2uhQ9jOq9+PGNv oDC8sXV8tT8yAgRqGeT6 IGabV724JcIhxFLn Yvedx4ice0ixrZj5QuUa FLSevsWjeXgiYYB4b2Md Ik08M4PtnZeol6PkPrc3 vm24lFAdw4R0lFY0 O6LfMMOxxztsmLDsrCba TU3oMYXunjzfROKawV3x QCMnG0o0SuWnMwG3VDdv Q0OjrzI7IXXxgSUv LYqrWNT2Y25zq7T4UMOl NSLsXAE4tSJ2jV3mwIdp bjogbGVmdDsgdmVydGlj IXdfZVekK728WDQt cPzoVRRczN4qATZgkIVg qUppEA0bLDVsnzbqTkKK QUlMRVksIFRPTllBIEdB DAP3Y1NaVas4XOBw tFliJW4chRUkEFerNd9s oMcjaYgmST1pEMDjxacb JLKhrO8mANEdoFNodEph AW6kJOYveetza430 NdJwCUQ4CDUzlBTiJ6Pa zH8rKcKxFLBrPEVdM9Ri uTHfVHnvQ556MPkpPhS5 NUWjtdQmF2TgMVHz oVxfIpK2m2K0Bc3pOb6x Ag7pAUL5YS68JL95lCQh f6M7lSF6M6RmOYVfqcqt xqytdAZ0PUQuVAGl oB54dYUrSCiuDn4ew3A8 k146ITRoBBVbcU28Gw4y sNraLVSzmBZDiA5wwsur u3mfmvjlTcPiKLFg CIk5BCh8HBRxzTbzFnEl DBE1TwX1YYR0yZYwqI5j wAlytrgmnV5qHsx+NzQg WGPyxkZ6Q0FcDea3 VKVlkTukCS4rkNKcHBmc Ms4fjMsjqExwAR0dWUGl vbzkJTGpoJ7uCJUlyQEa hAuxYW6aYTInuiqu t068FrArWXO8HQInkGKw V1UhsL4zFzGwVMNzIEWp P9PiePZuBEwyA583YWej HxH0XUUqhvHtI0Yu YSNovBzfDjK8z2F1Mr9D XC0WZSV0V3ZwYuy1FAVo qIuyAW1caORkQKpqEp8g tIhqqJfdFH1oNOJi ptkiSXUmgB6rUMUyhAPw lKawOC7xNGYvpmyzr510 JrApFRN2GKCuuDPkX6Ty xP3mYzLjBAFsXSSj E0XokUTwVEsyM727VAsn HcF1CXIpsgPjQ3SpEXNm bZwzWvL6g9X4Yc5GEFhw dGQ+WI21uu32C8La KjgiBjb9TLZpGDU6gNU7 pY7qSZCkFVqhl1C0zFU8 J6UaqkWvrr8wu1rxPOMq TIszB36vmEGrb6T0 GHDteXN0YCJukGvhNzKm yR39Rah+KBPeuZkax7Nw Pkeqx6abx0qmkOy1TdUc JSIgdmFsaWduPSJ0 y4DfBu08O41dXImwPPUs HDQvQPHnTFGsqQqcnx1g wM2uLv7+JWCvuTQ1vGT7 nU9rQdAqMwS7UPhd A302RmWzoJWmLxdlr6uq m2bucUm4WaLxKAIowdVs kRrmHKA6y5RzMi34A3Qu kYcgw9QsCbg2be17 eNSad7U2fRZ4B1AtNQZf pebknZVxhEfuUM1fLTBd yzrtUZYreD9tSCTbT6b9 WdJsXcQ7KLcoY0Ct rsU3VINldWUsJQXjrRRT cX4mjhxwu5adyvjxAiFg FXHvAJm8DKp3YIBnyHrb McGdHJW0AlF6VLV2 mPPjlJ7xlBkrqjeqvQ4z Oyc+TWr0r3wyzOUlXR9m kBT9XI08JT79mPGyz7P4 fCM0K7ClJYItrzdm ycgkpFA2GCBhMNBbgC48 Za7tmWufIw9cODZeIIB2 EXFtnEJdP4KymA2oVbXc GOHyAFOxN8CtnZZj PUdcE966SGxkIzM8QROd jyBvU3GmOIOcqJriDqG4 r9S4Fc4WCN22AZ35WP01 xQFeo5L5jCP5M1Hi XWDifwdighnvpSL1PGZh NTZsoK68An9obIdbTi0j EXKvVRV2XYWcsODvA0Yn iX2oNpTsFMOhHYSi U9JvqGUcYYazJ008HAhm UiH0ECBybbSqM8ViOXKe nSrcIjI9q6J0Qk0JYk67 GN04AT99fPIgn0E7 mHU5L2BqRCQworblxtpy aHM7DVJvTXAdtB63Zh1t hMtlUf9yCWYvBUL5ZESg eQLjE5RqhV1aKrVl GFZsNGGaA1UxnNNvOIjn O951IPpqWcZ1IHBzfiAm A1HfIPIvqZkaLcC9g3G0 Uu1FJOhswaa3C1Kp PjwvdHI+OU52CBOpFV06 kATmiVShm4ydwUp1TpPa QISvZTO7mQfpRFeay3Jo GWHzY11eaQOir6J7 IGN (more content not included)... [facility] Consent Formson 12-20-2021 Consent Forms [id number] #[email or web address] [facility] Coding Summaryon 12-19-2021 Coding Summary HTMLBase 64 DopebgjjJIz8wSv+PGhl YWQ+NT3PBAKcJ55jsHVd bK8HN3wZGB8XMLWVNMDP YP0RZZ1qwKI3HLsaR2Uk biAv BqfhtQDlYT97UMx9CID5 lSkpWXgjtN1ygQYaZ4a7 WxWlJV99aO23RXwvHQMd BwL3HfBhjjqxlUIl Z4vtDtZebTDjYkd+PHRh YmxlIHdpZHRoPScxMDAl TwXtnAfwKZ4zXg3pEUNp LWNvbGxhcHNlOiBj x9zvWQVcRPfuGM8tzTdb Q3CtlCK1IMCmm4v6Ov92 dHI+ICSqZEZ3rMngXVsp d907PcMpr1ojOEW3 rRScNZsfYZC2V49bp4W7 VOAvGPHsCRY1mZK1fK6y sDvysmabF5VhhPXiGuO4 ZOV1oOWygX3kvTka hnqyzF8uKoe+M88XDZ5M MTTERQ5DWci7M5SnZvea dHI+SO29OINhUK18jKCa qHSdp5fcwPe0FiAh ISQwIVU8rFxzQDgty8Yq EXYfJ38pgCAar5E6TPUs gPwnhODjGhRtsQN0gY0z NHrknazfw1rjuywp Hslgb9sygr61pJ12B15w FOskKZFfZAJ0VZXoCRUe iBnfwo0djK9xRe8+IDxj f6ahd9ujlUh8SkEh GGHfdkMfuEndYWU4p3Uw It53V3ExgAuae7PzMin6 cn88gFTng5Q0lKM3SJab CRMudQ2zTMcvJlT2 GURsHsAutB97rYJtCMqn Ig7ukYuxaVvkMR8uDHId hearLFSloQ7kOSWrbABr hUyvUK9pTAPqgnuc c396JgTrORL6CARshRWy J2JcfH3vObDbTLTgFOVm P9PqdBGyABluD115TWia SeH4RGIdcyUwD6Vw JKCjyTowYgL6r0Y6Lg2Y d9DdwiymIHK8HVugPYH8 AuW3DxTzMlE9B8SaRil7 FZAukCjsTH0fI4Nf DCSussgkosavgXW2BAGb STUyxP92hXMqATfgYu8p h5O0d700GVTqZBRewH67 Ua1rkXizNRNutJJO tU9klzemr1fdalcjCzBm EFTrMIi5UIm5LWQscWcg ShXhVMO4PrK9LDO9lJTz mF6ozSjrlewudB7p Oyc+G19oyV1yJXW9YJL7 iivoHKCrkdQyUG00DU66 X4JpMytfiUJeoRF+PGRp zqWmuIdlLQ7sZbWk p9txg1GpKSntR3PdCEAo ZXipFyc4VWVwSVH3uDS1 dR7zXUSpAFnky7D7qRE2 O6InhqOnlr6wq9lf QFQmXAtdC24dnVEdc0W6 LNBznHE2ANEqlXoaOdGx tT77Bog+NHFasKvjr9Ii Nkohv7xwf1ngoZl6 IjMwJSIgdmFsaWduPSJ0 u7TiBj88K51eVMzwLDGo KMOwWEHoFHEuaRjqsk0f iI9qFf7+PGNvbCB3 zFG8yD3bQZWuOhI2DGcv N471FgRgeRMeEmlsu0de e5kqvDc0XgJdWEQabmEs fAkvYVW7o4IrDe53 J30iLPjsNXSdLNWfAYWi VWVsnLsdkl0pvT6fGx9+ ST8ot4udqb84kH06nMW+ BHJyDES2nFbsADof RJAlqW7wXBykJwS4BCRo TiVhhV43vGNoSWnzOc7e kPwycOvjFP0fNJAdysyv h859YtCrz6lmYGSc dNFiCIksDEW2C65vb7Y2 VRKgCNIvIAI1lCP2wY6u bGlnbjogbGVmdDsgdmVy tCxaLUbmYTdrA334 IHRvcDsnPlBhdGllbnQg KsGjSPg8D4EyBtx4NEHx jLheNB6xhYVfPHuiHm0n uDwnfUzlFJ8lDAQz ziehc607UsSwc3ukAOMq zTLgGCkgAJV2T87gj1M9 SMXkUAGaNCM1mZQ8lW0v bGlnbjogbGVmdDsg euEgvTlcRHvpHVjvV272 IHRvcDsnPkJpcnRoIERh yZC5UD65UF20cZQat0E6 jOG3Z7OcATCzvfek fcnytEG3ZTImUERoqX95 Ch0icKpaCu8dAQRaXNY6 KOGqvJJvN4StpT0qAeSc BUVvBQZcR3GrvMZd GFxbO034LLgoNgJ8AYQo shZaM8PaVUTnhWmbFeD3 l7Z7Ux6IU4D1RQ18SH63 bZJsp2W7iPG8E9Mz IHOpthfybglqjFF3GDVz FNGsxJ80Uu8ncFdvKt9o BQPjHFM0TBYhnUNoS1Oi iK2nJgZyASBmTKWl P1NriYWmRLvtD253JHfh JtB9STPwqrJrR0DsOTDz gZzoBlI7h7A3Kr7THSc9 MA35ZD26dTDmm6R5 pHJ4X3ChLLSznirghthy oQQ2KZQpRBVqyP76Ch0f vDmgUd8nOCMwGSQ9QKXi gMIoY5JopX1rKeRy YOShSWLmC7MhzJNrGEgi C852ARsrJlG9YHGyhxZp B0FwKWHpdLcqXwM7y3M8 Ts0ESJLiLU33EAV2 cZN4AD41KZ22W7TmLvaw dGFibGU+PHRhYmxlIHdp ZHRoPScxMDAlJyBzdHls MO6mLf8gXYNhWUIr bMschVAiGuEoh1onABCs XQclNO4lmPcaG0SzeKS7 GLMud2h8Wr33O51hN7Fi dXA+UVTzuDQ9zVJ1 zV6kRxHbDjC5UOixU974 XlAvvHWlDnxpw8msj2bs tLu6KsD2BYBnxgRrlPhm KPC3d4TdWq65F30u IHdpZHRoPSIxNSUiIHZh qKfmsh0ufF2fPh6+PGNv gLS8iJJ2rR2rAwKxSzR7 BPnaG111ZtRudAEe Fxdzf9zon1yigEu2AbSs CHKsuqVusSxeOLS4a8Tj Cu18Y1LrnLmkw7SkKaz1 xv58zJJpl7S8wYI5 R3AqIGDbxrfacDBfdIni BF0fOXGisuauFVEqpN4j XKYcZ8g4EmNvLfO0IFmb B5BbugW6BVSkbCSq AIaeJXE6Q62hn6G2VNQf EVUwPWT4tKP7nR3utXog bjogbGVmdDsgdmVydGlj LKiqMBlqO412VKZe jHxqQWMtaZ2fDXXkeBGv gYiqIJ9fAGVmxmsqXvAF QUlMRVksIFRPTllBIEdB GIQ4Y7FfQgw9LFVw pPtxNY5iqGUmFCfaIy5e gVeryMkkNO0wTOPfessr QJFqnJ9aEOYytWVueYht LF6oRDVjelqnd374 KwZjTVG4OBJyjDArB0In hT8uDiLyVGCaXKRoJ8Tp qFZpYZicK476VPsiSvL9 OZJickKhU3BiNDXh eVamTzE8k0R4Gz7eYo9o Kv7wTZW0PQ38NB46vZQx e8E7zLK4G3NkLAHgdwqw eulduFB5PMPtQLIt bH26zVFgTOaoVk3qj4N0 l784OVQcDILhgH98Mb9l jLgrHZGjtUUJoI1nrmfv b9vfmekbVvHlSDBk FUy7MCl5SVGjgFxsAvQx UWG6AyA9MBB7lTJjgN9o mRrwmagweW6rBps+NzQg SKWvzpA4L0PwHtx1 PPArpLkpWT8tgLEqNCsx Wu7ixWptgKglED9mAJMs zprfEFGccS6nQLCfcVOe wRvjJY0uXNWxqxrp l369QrTiIRO3SZIoqHLq Y5IthY2bLwXfONZxWQPr N9UzzDLzBRdmD442JAdg MwK6QQKoiiHhC4Ep SYVrhTwxTmU6b6O2Uf0M FS3CYGC6Y1NfOpg5INJm yHufYG1aeTQiZTlxBz3f dDlqaPjiZC2rPXHs oihnQCAaxT9rJDClgKWv iDfqVA1kWGCdhrwal045 SsKgDMS4YMEdiAQeA3Sz fJ6xRfYyXPRdHCSh V8RqdHWqGAwpF218EHxt LsB9AKUsrbVrD4JbSNLm dJytGxG4o1W9Dm0WEcRl cnZhdGlvbjwvdGQ+ OH37qq97N7QnVmvxCil6 AQJjZWO5wHF8lI8gHKCg QIith8R8sHX9D9SiefLw gl5jq4ixSEQpJWbl C63sbMSba7W7KQVncFI6 BQGrlHaqOiSwiK54Zlt+ BPCnlGqav5SuQuwpk7du b6hpjLn6KvVwTXKf jgXnqStjIOR2b6WkEz45 V47qXVfnJIRsCRJvRRYp OUMvbMnpmg1xjD8fZo2+ MBZhgCM1bWP0sB2n IfJzAzV2WGpyA078EjQu wOBbOatqf4qhi7owxTl1 IjIwJSIgdmFsaWduPSJ0 t0OxOv10K2IqrWdg q4ZcJkh8dq39xADef4G7 rBH8J1AqBVFbchqdjIUl bIxwPH3sENWkyreyNESk jO9wIPXmT4t4PhNw QvK2WZeiD4LpyrF6TUMb nWKyPUVazSZUeJ3jifas n9wwezcdNtPpWLWlZTb1 OBj6QRYwtOiyCcLe GVW7VgD6ZLM1cAGpoT1z zEzensgdwC9oOgb+UGh5 r1wwyVUzQT2jhHT6YB18 XO28bFWju0Q4rZZ1 E3ToGPWexayzmmoadNL6 BVVaGMGbyF89Fs8vxJft Ke7zHHFfWCA7BGWuyPFb X1PzyV9cPeQtYVBm LIIaD7BinWAoRXgbT439 LQjnPzM1EMUyfsBmJ9Ud LCEniQjbQtX9a8B7Ia4V ZY10CA42TF19gGNg v7F5pZU0K3KrPWZxkvxe turqfWL7ELAmPAVgmY69 Cx5faOuuGq9gJUKoYQB0 RYEemBUrL6CxcG0x AiTgLCHgUDUgG8FtvKBu KUvyC173UOeeDyB7PWJu beJqU7OuBLBolPknFbB8 q2W9Hw4HAq08KP08 CV04dTDnu9S4kPF0Y5Yd YHSatwbvyrmnqCF8EURf WMPqzU83Rc7fdFmmYc5t LBDjBJC5GDUylZIw V2SwwE5bYqFuJWPsSWJg J6GppASiEBeiL154YWvh PnA6RGPivjEyM8McLXBb dLpdEuP5c3M5Rb6Z ADgmalr4Y1UvDqkfgIT+ AY02VFQiHC58tPAhyCFj q5phvOe4XmNqGPFlEVW3 sOuaNVebb5MbWIDi Y29 (more content not included)... [facility] Consent Formson 12-19-2021 Consent Forms [id number] [facility] on 12-19-2021 Consultation/Speci alist Note [id number] #1.00OTGTIFF [facility] Electronic Messagingon 12-19 Electronic Messaging --- --- --- --- --- --- --- --- --- From: Directtest ([id number]), Directtest To: BETTIE BURNS Sent: 12/19/21 04:59:55 AM EDT Subject: Discharge Summary Ready to View A summary regarding your recent visit is available in the Documents section of your Health Record. [facility] Outside Recordson 12-19-2021 Outside Records [id number] #1.00OTGTIFF [facility] Provider Orderson 12-19-2021 Provider Orders [id number] [facility] Strips [id number] #1.00[facility] Inpatient Patient Summaryon 12-18-2021 [place] [address] Patient Discharge Instructions Name: BETTIE BURNS : 1945 Patient Address: [address] [place] [address] Primary Care Provider: Name: Elliot Starks MD After you are discharged if you find you have any questions, please, call [phone] ext [phone] to speak to a nurse. The Pharmacy at [facility] is open Thursday through Thursday from [...] alcohol and/or drug addiction problems; contact the [facility] 24/11 Crisis Hotline -Text 4HOPE to 493194. If you received any narcotics, sedation, or [...] business decisions or sign any legal documents [facility] would like to thank you for allowing us to assist you with your healthcare needs. The following includes patient education materials and information regarding your injury/illness. BETTIE BURNS has been given the following list of follow-up instructions, prescriptions, and patient education materials: Follow-up Instructions With: Address: When: Melchor Rivera [address] [facility] [address] [place] [address] Business (1) 12/24/2021 2:30 AM With: Address: When: Elliot Starks [address] [place] [address] [place] [address] Business (1) Medications During the [...] this list. (more content not included)... [facility]21 [facility] Summary Primary Physician: Melchor Rivera DO Finalized Date/Time: 12/18/21 09:06:00 Pt. Name: BETITE BURNS /Sex: 1945 FEMALE Med Rec #: [id number] Physician: Melchor Rivera DO Financial #: [id number] Pt. Type: O Room/Bed: [facility]/ Admit/Disch: 12/16/21 06:48:01 - Institution: Phase II [...] Signed By: Yareli Crouch RN 12/18/21 09:06 [facility] Pharmacy Noteon 12-18-2021 Pharmacy Note I have [...] [Verified on: 12/18/2021 09:03 EDT] Michoacano Evans [facility] Pharmacy Note Home Medications (12) Active Aleve [...] [Verified on: 12/18/2021 08:42 EDT] Michael Franklin [facility] Progress Note - Nurseon 12-02 Progress Note - Nurse Discharged to home. Taken to awaiting vehicle via wheelchair. Belongings and walker given to patient. [Electronically Signed on: 12/18/2021 14:48 EDT] Tran Valenzuela RN [Verified on: 12/18/2021 14:48 EDT] Tran Valenzuela RN Normal [facility] .Auto Diff 1on 12-17-2021 Auto Cataño % 11 % Normal 05-15 [facility] Comment on above: Performed By: #### 7 [id number], [id number], [id number] #### [facility] (DEFAULT) [address] [place] [address] Baso Abs# 0.0 x10 Normal 0.0-0.2 [facility] Comment on above: Performed By: #### 7 [id number], [id number], [id number] #### [facility] (DEFAULT) [address] [place] [address]909 Basophils/100 WBC (Bld) 0.2 % Normal 0.2-2.0 [facility] Comment on above: Performed By: #### 7 218081, [id number], [id number] #### [facility] (DEFAULT) [address] [place] [address] 68464 Eos Abs# 0.0 x10 Normal 0.0-0.4 [facility] Comment on above: Performed By: #### 7 545261, [id number], [id number] #### [facility] (DEFAULT) [address] [place] [address] 76277 Eosinophils/100 WBC (Bld) 0.4 % Low 0.9-4.0 [facility] Comment on above: Performed By: #### 7 638272, [id number], [id number] #### [facility] (DEFAULT) [address] [place] [address] 03781 Lymph Abs# 1.5 x10 Normal 1.3-2.9 [facility] Comment on above: Performed By: #### 7 426707, [id number], [id number] #### [facility] (DEFAULT) [address] [place] [address] 25571 Lymphocytes/100 WBC (Bld) 18 % Normal 14-48 [facility] Comment on above: Performed By: #### 7 064105, [id number], [id number] #### [facility] (DEFAULT) [address] [place] [address] Cataño Abs# 0.9 x10 High 0.0-0.8 [facility] Comment on above: Performed By: #### 7 558753, [id number], [id number] #### [facility] (DEFAULT) [address] [place] [address] 72243 Neut Abs# 5.8 x10 Normal 1.5-9.2 [facility] Comment on above: Performed By: #### 7 656581, [id number], [id number] #### [facility] (DEFAULT) [address] [place] [address] 09802 Neutrophils/100 WBC (Bld) 70 % Normal 44-88 [facility] Comment on above: Performed By: #### 7 975794, [id number], [id number] #### [facility] (DEFAULT) [address] [place] [address] Advance Directive Documentso n 12-17-2021 Advance Directive Documents [id number] #1.00[facility] Advance Directive Documents [id number] #1.00[facility] BMP Standardon 12-17-2021 eGFR Non AA 55 mL/min/1.73m2 Invalid Interpretation Code [facility] Comment on above: Performed By: #### 7 392390, [id number], [id number] ####[facility] (DEFAULT)[address] [place] [address] 33094 eGFR AA >60 Invalid Interpretation Code [facility] Comment on above: Result Comment: Self Rising Flour Mixer juan diego Kidney disease could be indicated at eGFRs of less than 60 ml/min/1.73m2. Kidney Failure is indicated at less than 15 ml/min/1.73m2 Performed By: #### 7 307237, [id number], [id number] ####[facility] (DEFAULT)[address] [place] [address] 72464 Anion gap [Moles/Vol] 10.0 mmol/L Normal 5.0-19.0 [facility] Comment on above: Performed By: #### 7 169006, [id number], [id number] ####[facility] (DEFAULT)[address] [place] [address] 72718 Calcium [Mass/Vol] 8.9 mg/dL Normal 8.9-10.3 [facility] Comment on above: Performed By: #### 7 870984, [id number], [id number] ####[facility] (DEFAULT)[address] [place] [address] 07558 Chloride [Moles/Vol] 100 mmol/L Low 101-111 [facility] Comment on above: Performed By: #### 7 304559, [id number], [id number] ####[facility] (DEFAULT)[address] [place] [address] 01552 CO2 [Moles/Vol] 29 mmol/L Normal 21-32 [facility] Comment on above: Performed By: #### 7 575582, [id number], [id number] ####[facility] (DEFAULT)[address] [place] [address] 40924 Creatinine [Mass/Vol] 0.98 mg/dL Normal 0.60-1.30 [facility] Comment on above: Performed By: #### 7 363753, [id number], [id number] ####[facility] (DEFAULT)[address] [place] [address] 57969 Glucose [Mass/Vol] 127.0 mg/dL High 74.0-118.[address] [facility] Comment on above: Performed By: #### 7 002830, [id number], [id number] ####[facility] (DEFAULT)[address] [place] [address] 16320 Osmolality 275 mOsm/L Invalid Interpretation Code [facility] Comment on above: Performed By: #### 7 274327, [id number], [id number] ####[facility] (DEFAULT)[address] [place] [address] 63047 Potassium [Moles/Vol] 3.9 mmol/L Normal 3.6-5.1 [facility] Comment on above: Performed By: #### 7 834043, [id number], [id number] ####[facility] (DEFAULT)[address] [place] [address] 50301 Sodium [Moles/Vol] 135.0 mmol/L Low 136.0-144.0 [facility] Comment on above: Performed By: #### 7 677539, [id number], [id number] ####[facility] (DEFAULT)[address] [place] [address] 14343 Urea nitrogen [Mass/Vol] 23 mg/dL Normal 8-26 [facility] Comment on above: Performed By: #### 7 461993, [id number], [id number] ####[facility] (DEFAULT)[address] [place] [address] Urea nitrogen/Creatinin e [Mass ratio] 23.0 mg/mg High 4.6-16.2 [facility] Comment on above: Performed By: #### 7 196399, [id number], [id number] ####[facility] (DEFAULT)[address] [place] [address] CBC w/ Auto Diffon 2 Erythrocyte distribution width (RBC) [Ratio] 15.5 % High 11.5-15.0 [facility] Comment on above: Performed By: #### 7 371412, [id number], [id number] #### [facility] (DEFAULT) [address] [place] [address] Hematocrit (Bld) [Volume fraction] 33.6 % Low 33.7-40.4 [facility] Comment on above: Performed By: #### 7 666590, [id number], [id number] #### [facility] (DEFAULT) [address] [place] [address] Hemoglobin (Bld) [Mass/Vol] 10.8 g/dL Low 11.3-15.9 [facility] Comment on above: Performed By: #### 7 873291, [id number], [id number] #### [facility] (DEFAULT) [address] [place] [address] Instr WBC 8.2 x10 Invalid Interpretation Code [facility] Comment on above: Performed By: #### 7 187608, [id number], [id number] #### [facility] (DEFAULT) [address] [place] [address] Man Diff? Auto Normal [facility] Comment on above: Performed By: #### 7 593288, [id number], [id number] #### [facility] (DEFAULT) [address] [place] [address] MCH (RBC) [Entitic mass] 30 pg Normal 24-34 [facility] Comment on above: Performed By: #### 7 440404, [id number], [id number] #### [facility] (DEFAULT) [address] [place] [address] MCHC (RBC) [Mass/Vol] 32 g/dL Normal 26-37 [facility] Comment on above: Performed By: #### 7 284594, [id number], [id number] #### [facility] [facility] (DEFAULT[facility] [address] [place] [address] MCV (RBC) [Entitic vol] 95 fL Normal 81-100 [facility] Comment on above: Performed By: #### 7 [id number], [id number], [id number] #### [facility] (DEFAULT) [address] [place] [address] Platelet 209 x10 Normal 138-427 [facility] Comment on above: Performed By: #### 7 [id number], [id number] #### [facility] (DEFAULT) [address] [place] [address] Platelet mean volume (Bld) [Entitic vol] 8.3 fL Normal 6.3-10.2 [facility] Comment on above: Performed By: #### 7 [id number], [id number], [id number] #### [facility] (DEFAULT) [address] [place] [address] RBC 3.55 x10 Low 3.70-5.30 [facility] Comment on above: Performed By: #### 7 [id number], [id number], [id number] #### [facility] (DEFAULT) [address] [place] [address] WBC 8.2 x10 Normal 3.5-10.5 [facility] Comment on above: Performed By: #### 7 [id number], [id number], [id number] #### [facility] (DEFAULT) [address] [place] [address] Consultation/Specialist Note on 12-17-2021 Consultation/Speci alist Note [...] % Auto Lymph % 18 % Auto Cataño % 11 % Auto Eos % 0.4 % LOW Auto Baso % 0.2 % Neut Abs# 5.8 x103/mcL Lymph Abs# 1.5 x103/mcL Cataño Abs# 0.9 x103/mcL HI Eos Abs# 0.0 [...] [Verified on: 12/17/2021 07:03 EDT] GERHARD MOREL [facility] MAGR Intraoperative Recordon 12-17-2021 MAGR Intraoperative Record MAGR Intra-Op Record Summary Primary Physician: Melchor Rivera DO Finalized Date/Time: 12/17/21 10:27:53 Pt. Name: TCJANBETTIE /Sex: 1945 FEMALE Med Rec #: [id number] Physician: Melchor Rivera DO Financial #: [id number] Pt. Type: O Room/Bed: [facility] Admit/Disch: 12/16/21 06:48:01 - Institution: Case Times MAGR Entry 1 Patient In Room Time 12/16/21 10:05:00 Out Room Time 12/16/21 13:00:00 Anesthesia Start Time 12/16/21 10:05:00 Stop Time 12/16/21 13:04:00 Surgery Start Time 12/16/21 11:17:00 Stop Time 12/16/21 12:50:00 Last Modified By: Steffanie Damian RN 12/16/21 14:27:22 Case Attendance MAGR Entry 1 Entry 2 Entry 3 Case Attendee Melchor Rivera Jacquelyn RN Yontz, Luis Gibson DO Role Performed Surgeon - Primary Personal Counselor Anesthesiologist of Record Time In 12/16/21 10:14:00 12/16/21 10:05:00 12/16/21 10:05:00 Time Out 12/16/21 12:28:00 12/16/21 13:00:00 12/16/21 13:00:00 Procedure Arthroplasty Total Arthroplasty Total Arthroplasty Total Hip(Right) Hip(Right) Hip(Right) Last Modified By: Marah Blancas RN, Jacquelyn RN Burns, Jacquelyn RN 12/16/21 13:02:42 12/16/21 13:02:42 12/16/21 13:02:42 Entry 4 Entry 5 Entry 6 Case Attendee Son JIG INSPECTOR, Kadie Porter [employer] CST JIG INSPECTOR Role Performed Scrub Personnel Vacuum Filter Operator Vacuum Filter Operator Time In 12/16/21 10:05:00 12/16/21 10:05:00 12/16/21 10:05:00 Time Out 12/16/21 13:00:00 12/16/21 13:00:00 12/16/21 13:00:00 Procedure Arthroplasty Total Arthroplasty Total Arthroplasty Total Hip(Right) Hip(Right) Hip(Right) Last Modified By: Marah Blancas RN, Jacquelyn RN Burns, Jacquelyn RN 12/16/21 13:02:42 12/16/21 13:02:42 12/16/21 13:02:42 [facility] CUELLAR TIME OUT AT 1228 [...] and Alcohol (more content not included)... Normal [facility] Anesthesia Noteon 12-16-2021 Anesthesia Note Patient: BETTIE [...] on: 12/16/2021 13:39 EDT] Luis Hernández DO [facility] Anesthesia Note Patient: BETTIE BURNS Age: 76 [...] = 4 mL, 200 mL/hr, IV Piggyback, [employer] tranexamic acid: 1,000 mg = 100 mL, [...] All Problems Arthritis, hip / SNOMED CT 2560685822 / Confirmed Afib / SNOMED CT 94224461 / Confirmed Arrhythmia / SNOMED CT 7337221662 / Confirmed Former smoker / SNOMED CT 82910481 / Confirmed Acid reflux / SNOMED CT 484281115 / Confirmed Generalized arthritis / SNOMED CT 971413163 / Confirmed History of stomach ulcers / SNOMED CT 432889396 / Confirmed HTN (hypertension) / SNOMED CT 0249035238 / Confirmed Post-COVID syndrome resolved / SNOMED CT 2697500289 / Confirmed, Active Problems (9) Acid reflux Afib Arrhythmia Arthritis, hip Former smoker Generalized arthritis History of stomach ulcers HTN (hypertension) Post-COVID syndrome resolved Histories Family History: No family history items have been selected or recorded. Procedure history: Lumpectomy of left breast (0103479631). Comments: 11/22/2021 12:45 Steffanie Hernandez RN CA stage 1 (no chemo, had radiation) Arthroscopic repair of rotator cuff. (8370384514). Comments: 11/22/2021 12:48 Steffanie Hernandez RN left side History of total hysterectomy (2885813752). Comments: 11/22/2021 12:51 Steffanie Hernandez RN appendix removed at this time Heart ([id number]). Comments: 11/22/2021 12:55 Steffanie Hernandez RN per patient cryo-ablation to nerve in the heart to stop the a-fib. Done in 09/29/[address] Quiñonez [facility] Laparoscopic cholecystectomy ([id number]). Cataract ([id number]). Comments: 11/22/2021 12:56 Steffanie Hernandez RN radha. Cataract removal Rotator cuff repair ([id number]). Comments: 11/22/2021 12:47 Steffanie Hernandez RN right shoulder (1st surgery incision, 2nd arthroscopy, repair of the 1st surgery. Patient states fell and reinjured the rotator cuff) Eye ([id number]). Comments: 11/22/2021 12:49 Steffanie Hernandez RN radha. eye lid lift repair Both feet ([id number]). Comments: 11/22/2021 12:50 Steffanie Hernandez RN radha. feet removed bones to outer part of the foot Cardiac catheterization, left heart ([id number]). Comments: 11/22/2021 12:58 Steffanie Hernandez RN per patient normal done August [facility] Social History Electronic Cigarette/Vaping Assessment Electronic [...] Former tobacco user (more content not included)... [facility] MAGR PACU Recordon MAGR PACU Record MAGR PACU Record Summary Primary Physician: Melchor Rivera DO Finalized Date/Time: 12/16/21 14:27:03 Pt. Name: BETTIE UBRNS/Sex: 1945 FEMALE Med Rec #: [id number] Physician: Melchor Rivera DO Financial #: [id number] Pt. Type: O Room/Bed: 227/1 Admit/Disch: 12/16/21 06:48:01 - Institution: PACU Case Times MAGR Entry 1 In PACU I 12/16/21 13:01:00 Discharge from PACU 12/16/21 14:10:00 I Last Modified By: Steffanie Damian RN 12/16/21 14:26:54 Finalized By: Steffanie Damian RN Document Signatures Signed By: Steffanie Damian RN 12/16/21 14:27 [facility] MAGR Preoperative Recordon 0 12-16-2021 MAGR Preoperative Record MAGR Pre-Op Record Summary Primary Physician: Melchor Rivera DO Finalized Date/Time: 12/16/21 14:27:34 Pt. Name: JEANNE BURNSWALLACE Browning/Sex: 1945 FEMALE Med Rec #: [id number] Physician: Melchor Rivera DO Financial #: [id number] Pt. Type: O Room/Bed: 227/1 Admit/Disch: 12/16/21 [...] Damian RN Document Signatures Signed By: Steffanie aDmian RN 12/16/21 14:27 [facility] Nutrition Noteon 12-16-2021 Nutrition Note Pt admitted [...] no immediate nutrition concerns at this time. [facility] Operative Report - Surgeon/P beth 12-16-2021 Operative [...] applied. [Electronically Signed on: 12/16/2021 12:38 EDT] NicoleMelchor neumann DO [Verified on: 12/16/2021 12:38 EDT] NicoleMelchor neumann DO [facility] Progress Note - Nurseon 12-02 Progress Note - Nurse patient up in chair, oob using walker to bathroom to void, assisted back to chair, tolerating supper, iv patient, 1 plus palpable on right foot, right hip dressing dry, intact, will continue to monitor. [Electronically Signed on: 12/16/2021 20:31 EDT] Beverly Lam RN [Verified on: 12/16/2021 20:31 EDT] Beverly Lam RN [facility] XR Hip Complete Righton 12-02 XR Hip [...] Dictated DT/TM: 12/16/21 4:31 Signed (Electronic Signature): Staurt Jhaveri MD 12/16/21 4:37 pm Technologist: Barbara MCKEON [facility] Patient Handouton 12-14-2021 Patient Handout POST OPERATIVE [...] be done to rule of a DVT. [facility] Coding Summaryon 12-13-2021 Coding Summary HTMLBase 64 ZvdklejpVQw8uAh+PGhl YWQ+GM8ZLTPaA17pdMNb fT9XZ5cYNJ5CZOHYGAVG RM5WDN0leVJ7IDzsT7Bz biAv CgptuESqMO50FKz3WNT7 dOrpQSyjkV1znPFnU5q2 HaFgWL50gB18AWbqXOUr LwW9PrVrxbspcXLj C5xdLpHwxBUxMct+PHRh YmxlIHdpZHRoPScxMDAl NnAnwPwqXE3dBi6vOQAy LWNvbGxhcHNlOiBj a7skNLTrIYqzPP7kbNlk F0AgtEJ3KXCgc8a2Gr04 dHI+SELzMWQ9wGeqSIjx k245VeWhb3mkTVE1 rYBsDIbvNTA7Z23au4Y1 LZIvNOUdPDY2dZK8aO0k pRvbfhqwC8PgiNPyFlC7 VGH2dWFavD8lrCbm vkqjcF8dQfh+D30GDO4P QZMTIF6TRph2S6AnTbec dHI+CZ57BQUgPK46zELm yYCmf6qgmKu2DmCz HDPnQQQ1wCzzBVjrt2Nf QANaG45rhRTku0Y8OVJn yPtvgXVlYkYvwNO4gV1d HOvuqokdw5btznjo Qtnwg9bwyz61qE71V40b LXzcMRAsPVF5EYWsYIPy mWnpyn2wzJ0sBb9+IDxj y2tke6oyjRp6SsGt OLFemwWncGirGHJ8o9St Yx63I3KtfDmfv8LmTzf9 cz77gVYfq2D2wOP3MSis RCZkpG1pJEzfNaK5 PJAeCjKxzT04cLKsCSgx Xw7jgTauqHceLS2oLZFm gyzzPFOenL6uAALgqYCm iYacRQ7vMXCcrswz o500CnNgZNX4PVDbsNVo J3KfgW8aCdLvNNPeGBHc V7TznFFkOWoxC695UPak RcQ6LKQorrZlM2Be RWAdoLdzIhF8o8O9Qr2H q2FtjxyuVKV2CAeaCOK4 ChGoNnOyBvA3Z7QiBxm7 HXBuiBwkCW8yT4Xk YZOsuhwilcrpbRY6UAKq IOBooJ38sOAvJBkmEn2s z7W7m342DEXjAWTkrL59 Kl2acGqwVEKmoPAO jS9qmxxod8wbrcbmQlGn FSOrHWp6YJe2SWOyaZys IgMwSQE7LrE0WGO6tIGj vX8gtWhndznpbF7e Oyc+U32sdZ7qUDG0VTE6 xzzfPIMqkkQsPX96OS30 X5ItIfcciQUrhTE+PGRp flQptCpcIQ1yLeAt d7zhf9BvRKzzY0PgSHJm TPytDcp4EMMlRHM7yTJ5 qY0tTUJmNJpii8V1mQR4 C4DnatOjwc2ho8mg GXQiAOyhP06zfYBch8R5 MDWtpCD6CMDebZojMhMm mW80Fpg+TWNlbDmcg7Bx Veqfu4psu2qjaFk2 IjMwJSIgdmFsaWduPSJ0 b5YvEx07M46oJZsxOPEs LWInIVIxUSLaaNmcua7k tO9kFu4+PGNvbCB3 xEH8qR1mRPLsKdY6XCyg L563LnLqsTWtSlmfp3js d9dtaUl2TaCgWKDfuqYt cIwuCFB9y4NgRj12 W85uXPpoZADdYAMqPXOx FGLdsTinfd9ilD5aUb3+ NS2xr0tfyu36vC91rKN+ FKYuZQZ3rRowYEhy ADYbwK3uAMgvKxT5OOBq XmFcuD07nUHxPDauTj3u tOffvNxyWQ5oAQUheiwr t806QqVzs1vfSEKw rNAzDPxkNKC2D03qy5L5 DNZkVZDpKML3lWE5wE3n bGlnbjogbGVmdDsgdmVy jLeoAXdqRWkgC460 IHRvcDsnPlBhdGllbnQg FuLrUNm5Q0AeLuc7WSOd rYfhBO4bzFCeIHvuVd0s yRtcrRnzGP1vWHXr ddanx852NfAjc7rrOPAa lKNkHYdtOLU6P30ib8Z9 PXYxIKUsFBD1dFX4gJ0e bGlnbjogbGVmdDsg toJyxDilQKljJCxmX473 IHRvcDsnPkJpcnRoIERh rDJ5MQ78NM43mDSti8N0 mBS9D9FaGFQdkegw smvviQZ9WGGtYVElvX92 Qr0zyNflVr2iMQPjUBI8 YNZzdFOhJ7CatP2kPjCw EEQuKGMlB9XfuKJq SCdzN745PXdoEpB4ZRAy dqAeE8GxLXNsePhiLaU5 k9C2Lf9MO9U6YH88HV04 tZRwv5L1kYV0V8Ll AETxpptstwzafES2IKLu KYUofI18Sh1cuWtdGk1w ZVXrULR0UZErtBSmA9Uk uJ3qGxMsZTIdVSCq A7GqiRUbHUroY845OFly DzS1YVKlxzWjR3RiAQJf lFqaXqO8w5E7Du9NNYl5 WE99BU11oRBwq3H4 nTJ3L9FoXNBkkpzcqorl oPR3QSHgHDOnzW80Al7b rVbuKf9nIAIfBQB3EWQe nZIkK0PxlH6bZsCj DFXiWWRyP3CtbGZpGNlj X363OYpdJzS2AIClxnKf Q5ZnEUOsjQljYiX3t1Q0 Sm3PGBKeHZ85ZME4 eKG8FZ87QD42F7FkJpfd dGFibGU+PHRhYmxlIHdp ZHRoPScxMDAlJyBzdHls JH4zEh0sECWcHXPa oNtgiXQiIqOjm3gbSZTf GMudBL3elNvyN6RpqTI0 MTJzq0h2Ge10X38iK6Pj dXA+ZANgkNZ7mHQ8 lX4iDoJvPlT7MNgoX727 BxYlsBKzYqgvp3kjh9sf sDi7AqX6HAWlyiVtnEha XSX0u2ZiPp97L73z IHdpZHRoPSIxNSUiIHZh sOnztq7htJ9cRd5+PGNv sFF3xBI5jE2nFkQiFtI9 VWxqE429WjPotDHk Alchr6kzw7gtqBw0CyOw PLPrhvAjlOneGUR7j7Wa Ny68C2QnnJwnx9TkAap1 ti05tXOmp5P2kAB8 Q8FbNIBcuuhvoQTciIcr WW5qWVWfewmfMCHsuR0d OCYsN4q6CwWgOdQ0KUgw Q4GukcS0ZPJbsJWf MUqiZNB9B27tq2W5DEIq FFUbCHD3pHR0mQ9bhLcz bjogbGVmdDsgdmVydGlj AKgvYBsjE462FHNy vOezECQmgD9kTQNqrFJc ySxfYU8dFNClosrgLiWB QUlMRVksIFRPTllBIEdB QWJ3G1OjDqk2SHTv fXpcCZ3ffTXvCBcrMq5j iZwqmHqpEQ9vFJNuiypx YTDmyA5xCDUfqKUmtYbk DX9zMOEqlgyop781 ThIwKIF3RMCwaLNiJ5Ir xW7lGfSySJGfZVFzG2Bn bZHuAHciP554GCcdBgQ6 ZSBlfeIfJ1ElZBNd aZhqYmD9v7W4Ey1dWl1a Zn1fUXP3IX16TO06zSAn f8C9uDV6B1OiGZOoqyzb mhmtbPJ7FQCdWYHq vR70vZOsLUswVo9vl8R9 m240JTXqGNIlgQ74Fr7k mXncMEOnqQGLxI8creds b0wjpbqeGtToAYRy SPl8VHz9ZBTzmXtdBjOj AZG9DqJ0SBH2kNJioV3y sHquamqvmV5iLfb+NzQg PNHoooV2R8GcUqa8 QJXzyXzbQC4cjDIkVGqf Or5hvYpggNbvTD8iTKXz fidzWQCvrG0sZRUxpZEm nOvzZO7eHLYwerks m199RtRjDOC0OLNvjXCj R5KndH6kQaTyDZWxPIIc L8LkxMKaXLbkP074ERpx EgI8UKPtplNwK2Ek LWNxwZljUaY6s0Y0Gb5I XC8FDZA8W7PuVay7TGVe mAriDN1naETgKXmjNd4e lNoypOnfKJ4zEUDb kqjvKABwhP4tYVRsfQPo hRuvZL0wPDXobwzjr877 MrLvKDN3WHMoiRIyO6As gN6cMaHyTQDvGWHj I6AnbVQvFBnxD422PLcb YjF7GNXjbxKqI9ZeNADf dOtbUtI8j0W8Rr7DIJkp dGQ+RE75ea24A2Eo UhswHow6TGZpTOE9hEN1 yA9kFROfQIrrr2L4zGD5 C7FfzeIdkb8bq1ggXOLm OQugR06ftBEfl3S4 FYScjJW7QXVoaNhdRrFz tO02Xia+USRovYdxt2Pa Zhvgi4nrp1xpqFf6VjPw JSIgdmFsaWduPSJ0 h1FnCq59C01qBLksDTGq BPPsECZyOQVicPedvi1i uP1uXt1+EOJqwPE9vMV6 qR6iXqXbVtR1ZJln G995UuNahJJsDssts9mv x3irtFw5MrBiGFGzqjOl gVrjJZS1l3KqJr01X8Qo qYbfh2RwKyf4dk25 mWQar8S0dYU9O5JkEZRn foekzUDqjXruRX4cHPDw rgngHQKkmZ9jNBQaI5s3 DpOoNhX1NPekG2Ia zuZ0PGAqbHJdLEFcvTKO qN6biqtkv8tyeljmXnAe JLKdJHa9CRn8DZPbzLqy AwQvOAN6KkD6XSW7 oJRgaW9wtQtcsgztrE1n Oyc+JTr6j7tgyEIjYU4v lLA4SR14QF03zIXtu7C1 cBC0C2MtBVQobnkd pywmjRN0LZGyDPRghZ43 Lx2qwAfqTh5tHWLnQCP2 TCNlgGToA5MisC5bPiLg LXLyKWHcR9MocHKp WGfoU681KJltPzF3MDLq miHuE6HgSRIfhMzxSxO7 k1J1Vs5ZLH26MS97YN79 lHYgc8A8mSA3M0Mi OVBvweqfokawrSP9JCYs YGKhjH56Ta8ceCsnQj2k CLBeEQU4VRIqpHZmV2Oi rL5tCdLcOKNhVCOj R1AfuSSfTCrcF107TTra QgM2TVLixjFnC9BsIQGl nTvdUpO1i1D9Gb6FSc38 VL04XR33rVEca2T0 bFO8B3YzBWVslyynfdsn eEJ8KICmNWJbaO08Ue9g qGcrIy2fDYGuIER1FCQm fGLoJ8LqeB3pDcAf YZSaTWBjL0QgwPTxDJok L626NMbkJiR0MIWktzYj L2AfTDMenWgqJsO9q7C7 Ye2ALYdbzew2L9Cs PjwvdHI+TH30BGYaBF77 rGIyyWAdd0wqrPp6SxJf TVJnYKI3rEgcQLptx9Nc RPJwN29odKIwu3D6 IGN (more content not included)... [facility] Progress Note - Nurseon 12-02 Progress Note - Nurse Pre-op phone call made to pt. Pt states understanding of arrival time of 0700 on Thursday12/16/21. Pt states understanding of pre-op instructions and is without further questions/concerns at this time. [Electronically Signed on: 12/13/2021 11:21 EDT] iLlia Quiñonez RN [Verified on: 12/13/2021 11:21 EDT] Lilia Quiñonez RN [facility] 2018 Novel Coronavirus (CoVI D-19), CHRISTOPHER LCon 12-12-2021 SARS-CoV-2 (COVID-19) RNA CHRISTOPHER+probe Ql (Unsp spec) Not detected Invalid Interpretation Code Not Detected [facility] Comment on above: Order Comment: [id number] Result Comment: This nucleic acid amplification test was developed and its performance characteristics determined by [employer]. Nucleic acid amplification tests include RT- PCR [...] detected) result in this assay. Performed At: [address] [id number] Hansa Miller PhD Ph:[phone] Performed By: #### 6 [id number] #### [facility] (DEFAULT) [address] [place] [address] Provider Orderson 11-25-2021 Provider Orders [id number] Normal [facility] C Urineon 11-24-2021 C Urine Urine Culture ordered as a result of parameters set on specific urine dip and urine microsopic results. Mixed skin, or urogenital glo. Clinically insignificant [facility] Comment on above: Performed By: #### 6 [id number], [id number] ####[facility] (DEFAULT)[address] [place] [address] C MRSA Screenon 11-23-2021 C MRSA Screen Negative Normal [facility] Comment on above: Performed By: #### 1 [id number] ####[facility] (DEFAULT)[address] [place] [address] .Auto Diff 1on 11-22-2021 Auto Cataño % 10 % Normal 05-15 [facility] Comment on above: Performed By: #### 1 [id number], [id number], [id number] ####[facility] (DEFAULT)[address] [place] [address] Baso Abs# 0.1 x10 Normal 0.0-0.2 [facility] Comment on above: Performed By: #### 1 [id number], [id number], [id number] ####[facility] (DEFAULT)[address] [place] [address] Basophils/100 WBC (Bld) 1.0 % Normal 0.2-2.0 [facility] Comment on above: Performed By: #### 1 [id number], [id number], [id number] ####[facility] (DEFAULT)[address] [place] [address] Eos Abs# 0.5 x10 High 0.0-0.4 [facility] Comment on above: Performed By: #### 1 [id number], [id number], [id number] ####[facility] (DEFAULT)[address] [place] [address]5918 Eosinophils/100 WBC (Bld) 6.7 % High 0.9-4.0 [facility] Comment on above: Performed By: #### 1 [id number], [id number], [id number] ####[facility] (DEFAULT)[address] [place] [address]26 Lymph Abs# 2.8 x10 Normal 1.3-2.9 [facility] Comment on above: Performed By: #### 1 [id number], [id number], [id number] ####[facility] (DEFAULT)[address] [place] [address] 43468 Lymphocytes/100 WBC (Bld) 41 % Normal 14-48 [facility] Comment on above: Performed By: #### 1 [id number], [id number], [id number] ####[facility] (DEFAULT)[address] [place] [address]903 Cataño Abs# 0.7 x10 Normal 0.0-0.8 [facility] Comment on above: Performed By: #### 1 [id number], [id number], [id number] ####[facility] (DEFAULT)[address] [place] [address] 66223 Neut Abs# 2.9 x10 Normal 1.5-9.2 [facility] Comment on above: Performed By: #### 1 [id number], [id number], [id number] ####[facility] (DEFAULT)[address] [place] [address] Neutrophils/100 WBC (Bld) 42 % Low 44-88 [facility] Comment on above: Performed By: #### 1 [id number], [id number], [id number] ####[facility] (DEFAULT)[address] [place] [address] BMP Standardon 11-22-2021 eGFR Non AA 40 mL/min/1.73m2 Invalid Interpretation Code [facility] Comment on above: Performed By: #### 1 [id number], [id number], [id number] ####[facility] (DEFAULT)[address] [place] [address] eGFR AA 49 mL/min/1.73m2 Invalid Interpretation Code [facility] Comment on above: Result Comment: Self Rising Flour Mixer juan diego Kidney disease could be indicated at eGFRs of less than 60 ml/min/1.73m2. Kidney Failure is indicated at less than 15 ml/min/1.73m2 Performed By: #### 1 [id number], [id number], [id number] ####[facility] (DEFAULT)[address] [place] [address] 43296 Anion gap [Moles/Vol] 13.0 mmol/L Normal 5.0-19.0 [facility] Comment on above: Performed By: #### 1 [id number], [id number], [id number] ####[facility] (DEFAULT)[address] [place] [address] 92136 Calcium [Mass/Vol] 10.2 mg/dL Normal 8.9-10.3 [facility] Comment on above: Performed By: #### 1 [id number], [id number], [id number] ####[facility] (DEFAULT)[address] [place] [address] 29720 Chloride [Moles/Vol] 100 mmol/L Low 101-111 [facility] Comment on above: Performed By: #### 1 [id number], [id number], [id number] ####[facility] (DEFAULT)[address] [place] [address] 92323 CO2 [Moles/Vol] 30 mmol/L Normal 21-32 [facility] Comment on above: Performed By: #### 1 [id number], [id number], [id number] ####[facility] (DEFAULT)[address] [place] [address] 89584 Creatinine [Mass/Vol] 1.29 mg/dL Normal 0.60-1.30 [facility] Comment on above: Performed By: #### 1 [id number], [id number], [id number] ####[facility] (DEFAULT)[address] [place] [address] 61702 Glucose [Mass/Vol] 121.0 mg/dL High 74.0-118.[address] [facility] Comment on above: Performed By: #### 1 [id number], [id number], [id number] ####[facility] (DEFAULT)[address] [place] [address] 93528 Osmolality 285 mOsm/L Invalid Interpretation Code [facility] Comment on above: Performed By: #### 1 [id number], [id number], [id number] ####[facility] (DEFAULT)[address] [place] [address] 43023 Potassium [Moles/Vol] 3.7 mmol/L Normal 3.6-5.1 [facility] Comment on above: Performed By: #### 1 [id number], [id number], [id number] ####[facility] (DEFAULT)[address] [place] [address] 06015 Sodium [Moles/Vol] 139.0 mmol/L Normal 136.0-144.0 [facility] Comment on above: Performed By: #### 1 [id number], [id number], [id number] ####[facility] (DEFAULT)[address] [place] [address] 38929 Urea nitrogen [Mass/Vol] 31 mg/dL High 8-26 [facility] Comment on above: Performed By: #### 1 [id number], [id number], [id number] ####[facility] (DEFAULT)[address] [place] [address] 65610 Urea nitrogen/Creatinin e [Mass ratio] 24.0 mg/mg High 4.6-16.2 [facility] Comment on above: Performed By: #### 1 [id number], [id number], [id number] ####[facility] (DEFAULT)[address] [place] [address] CBC w/ Auto Diffon 2 Erythrocyte distribution width (RBC) [Ratio] 15.6 % High 11.5-15.0 [facility] Comment on above: Performed By: #### 1 [id number], [id number], [id number] ####[facility] (DEFAULT)[address] [place] [address] Hematocrit (Bld) [Volume fraction] 40.9 % High 33.7-40.4 [facility] Comment on above: Performed By: #### 1 [id number], [id number], [id number] ####[facility] (DEFAULT)[address] [place] [address] Hemoglobin (Bld) [Mass/Vol] 13.2 g/dL Normal 11.3-15.9 [facility] Comment on above: Performed By: #### 1 [id number], [id number], [id number] ####[facility] (DEFAULT)[address] [address] Instr WBC 7.0 x10 Invalid Interpretation Code [facility] Comment on above: Performed By: #### 1 [id number], [id number], [id number] ####[facility] (DEFAULT)[address] [address] Man Diff? Auto Normal [facility] Comment on above: Performed By: #### 1 [id number], [id number], [id number] ####[facility] (DEFAULT)[address] [place] [address] 89209 MCH (RBC) [Entitic mass] 30 pg Normal 24-34 [facility] Comment on above: Performed By: #### 1 [id number], [id number], [id number] ####[facility] (DEFAULT)[address] [place] [address] 97267 MCHC (RBC) [Mass/Vol] 32 g/dL Normal 26-37 [facility] Comment on above: Performed By: #### 1 [id number], [id number], [id number] ####[facility] (DEFAULT)[address] [address] MCV (RBC) [Entitic vol] 92 fL Normal 81-100 [facility] Comment on above: Performed By: #### 1 [id number], [id number], [id number] ####[facility] (DEFAULT)[address] [address] Platelet 303 x10 Normal 138-427 [facility] Comment on above: Performed By: #### 1 [id number], [id number], [id number] ####[facility] (DEFAULT)[address] [address] Platelet mean volume (Bld) [Entitic vol] 8.8 fL Normal 6.3-10.2 [facility] Comment on above: Performed By: #### 1 [id number], [id number], [id number] ####[facility] (DEFAULT)[address] [place] [address] RBC 4.43 x10 Normal 3.70-5.30 [facility] Comment on above: Performed By: #### 1 [id number], [id number], [id number] ####[facility] (DEFAULT)[address] [address] WBC 7.0 x10 Normal 3.5-10.5 [facility] Comment on above: Performed By: #### 1 [id number], [id number], [id number] ####[facility] (DEFAULT)[address] [place] [address] UA Okgof2nv 11-22-2021 UA Amorph. 1+ Normal [facility] Comment on above: Order Comment: Urina lysis Microscopic order added on by [employer] Rules system. Performed By: #### 6 [id number], [id number], [id number] ####[facility] (DEFAULT)[address] [address] UA Bacteria 1+ Normal [facility] Comment on above: Order Comment: Urina lysis Microscopic order added on by [employer] Rules system. Performed By: #### 6 [id number], [id number], [id number] ####[facility] (DEFAULT)[address] [address] UA Hyal Cast 0-5 [facility] Comment on above: Order Comment: Urina lysis Microscopic order added on by [employer] Rules system. Performed By: #### 6 [id number], [id number], [id number] ####[facility] (DEFAULT)[address] [address] UA Mucous 1+ [facility] Comment on above: Order Comment: Urina lysis Microscopic order added on by [employer] Rules system. Performed By: #### 6 [id number], [id number], [id number] ####[facility] (DEFAULT)[address] [place] [address] UA RBC 5-10 [facility] Comment on above: Order Comment: Urina lysis Microscopic order added on by [employer] (formerly [employer]) Expert Rules system. Performed By: #### 6 488304, [id number], [id number] ####[facility] (DEFAULT)[address] [place] [address] UA Squam Epi Few [facility] Comment on above: Order Comment: Urina lysis Microscopic order added on by [employer] (formerly [employer]) Expert Rules system. Performed By: #### 6 [id number], [id number], [id number] ####[facility] (DEFAULT)[address] [place] [address] UA WBC 0-2 [facility] Comment on above: Order Comment: Urina lysis Microscopic order added on by [employer] (formerly [employer]) Expert Rules system. Performed By: #### 6 892004, [id number], [id number] ####[facility] (DEFAULT)[address] [place] [address] UA w Culture if Ind Standard on 11-22-2021 Breakpoint UA [facility] Comment on above: Performed By: #### 6 835596, [id number], [id number] ####[facility] (DEFAULT)[address] [place] [address] Color (U) Yellow Normal [facility] Comment on above: Performed By: #### 6 637515, [id number], [id number] ####[facility] (DEFAULT)[address] [address] Culture? Indicated Invalid Interpretation Code [facility] Comment on above: Result Comment: Resu lt created by rule GL_MAGR_ADD_UA_CULT Result created by rule GL_MAGR_ADD_UA_CULT Result created by rule GL_MAGR_ADD_UA_CULT1 Result created by rule GL_MAGR_ADD_UA_CULT Performed By: #### 6 486721, [id number], [id number] ####[facility] (DEFAULT)[address] [place] [address] Glucose (U) [Mass/Vol] Negative [facility] Comment on above: Performed By: #### 6 871261, [id number], [id number] ####[facility] (DEFAULT)[address] [place] [address] Ketones Ql (U) Negative [facility] Comment on above: Performed By: #### 6 414714, [id number], [id number] ####[facility] (DEFAULT)[address] [address] Micro? Indicated Invalid Interpretation Code [facility] Comment on above: Result Comment: Resu lt created by rule GL_MAGR_ADD_UA_MICRO Performed By: #### 6 555451, [id number], [id number] ####[facility] (DEFAULT)[address] [address] UA Bilirubin Negative Normal [facility] Comment on above: Performed By: #### 6 707553, [id number], [id number] ####[facility] (DEFAULT)[address] [address] UA Blood TRACE Abnormal NEGATIVE [facility] Comment on above: Performed By: #### 6 213411, [id number], [id number] ####[facility] (DEFAULT)[address] [place] [address] UA Clarity CLEAR Normal CLEAR [facility] Comment on above: Performed By: #### 6 039988, [id number], [id number] ####[facility] (DEFAULT)[address] [place] [address] UA Leuk Est Negative Normal NEGATIVE [facility] Comment on above: Performed By: #### 6 144372, [id number], [id number] ####[facility] (DEFAULT)[address] [place] [address] UA Nitrite Negative Normal NEGATIVE [facility] Comment on above: Performed By: #### 6 697382, [id number], [id number] ####[facility] (DEFAULT)[address] [place] [address] 98447 UA pH 5.5 Normal 5-8 [facility] Comment on above: Performed By: #### 6 072392, 72562434, [id number] ####[facility] (DEFAULT)[address] [place] [address] 83065 UA Protein Negative Normal NEGATIVE [facility] Comment on above: Performed By: #### 6 851513, 21353335, [id number] ####[facility] (DEFAULT)[address] [place] [address] UA Spec Grav 1.025 Normal 1.001-1.035 [facility] Comment on above: Performed By: #### 6 371680, 90838231, [id number] ####[facility] (DEFAULT)[address] [place] [address] UA Urobilinogen 0.2 mg/dL Normal 0.2-1.0 [facility] Comment on above: Performed By: #### 6 526788, 92501944, [id number] ####[facility] (DEFAULT)[address] [place] [address] Urine Source Clean Catch Normal [facility] Comment on above: Performed By: #### 6 435369, [id number], [id number] ####[facility] (DEFAULT)[address] [place] [address] 67[address] Shane 10-03-2021 AUSTENN Telephone ([facility]) BETTIE BURNS ([id number]) 1945 F Date Time Provider Department 10/03/21 [...] Z17.0] Order(s):CBC + DIFF [SQCBCDIF] Order #: [id number] FUTURE COMP METABOLIC PANEL [SQCMP] Order #: [id number] FUTURE CA 27.29 BLOOD [[id number]] Order #: [id number] FUTURE Prescriptions as of 10/03/2021 - lisinopril [...] Encounter Status:Closed by ANDREW CHOI on 10/03/21 [facility] 09-26-2021 CNPN Telephone (HEMAS[facility]) BETTIE BURNS ([id number]) 1945 F Date Time Provider Department 09/26/21 MIKAELA DOMINGUEZ During your visit today, we recorded the following information about you: Mikaela Dominguez RN 09/26/2021 2:36 PM Signed Pt scheduled for diagnostic mamm tomorrow @ [facility] Hospital calls to ask if this could be changed to a screening mammogram since the pt is greater than 2 years from diagnosis? RICARDO Jean-Baptiste MD 09/26/2021 5:14 PM Addendum Okay to change to screening mammogram. Order signed. ASIYA Ford RN 09/27/2021 8:12 AM Signed Order faxed to [facility] @ [phone]. Mikaela Dominguez RN Allergies As of Date: 09/26/2021 [...] mammogram for malignant neoplasm of breast [Z12.31] Order(s):[facility] SCREENING W YAW [[id number]] Order #: [id number] FUTURE Prescriptions as of 09/27/2021 - lisinopril [...] Encounter Status:Closed by ANDREW CHOI on 09/26/21 [facility] Hip w/o Righton 09-12-19 22 MRI Hip [...] by Ramon Ambrocio on 09/11/2021 1545 Normal [facility] Inspector Balance Truing Consult Reporton 03-14-2020 Consult Report [facility] BETTIE BURNS [address] [id number] OBSV ANABEL WATKINS MD [id number] REFERRING PHYSICIAN: CONSULTING PHYSICIAN: Renetta Almanzar MD DATE OF CONSULTATION: 03/11/2020 REASON: A near syncopal event in a 74-year-old female, with a history of atrial fibrillation, previous cardiac ablation, who was the time of evaluation noted to have a positive test for COVID. HISTORY OF PRESENT ILLNESS: Mrs. Burns is a very pleasant, alert and oriented -oebg-dfs female who was brought into the emergency [...] including quarantine. Many thanks. RENETTA ALMANZAR MD BD/MedQ /[id number] Normal [facility] BASICMETAon 03-11-2020 GFR AA >60 Normal [facility] Comment on above: Result Comment: Afri can Serbian GFR Calc Medical judgement is necessary to [...] for drug dosing. Performed By: #### 1 94472, 531228, 200354 ####[facility] [address] [place] [address] Medical Director: Fahad Cast MD GFR/1.73 sq M predicted among non-blacks MDRD (S/P/Bld) [Vol rate/Area] 56 mL/min/1.73m? Normal [facility] Comment on above: Result Comment: Non [...] for drug dosing. Performed By: #### 1 00139, 383427, 513349 ####[facility] [address]iv[address]26 [place] [address] Medical Director: Fahad Cast MD Osmolality [Osmolality] 291 mOsm/kg Normal 275-295 [facility] Comment on above: Performed By: #### 1 48909, 408579, 670751 ####[facility] [address] [place] [address] Medical Director: Fahad Cast MD Urea nitrogen/Creatinin e [Mass ratio] 24.5 mg/mg Normal [facility] Comment on above: Performed By: #### 1 49966, 448603, 587413 ####[facility] [address] [place] [address] Medical Director: Fahad Cast MD Calcium [Mass/Vol] 9.3 mg/dL Normal 8.5-10.5 [facility] Comment on above: Performed By: #### 1 07517, 473459, 233404 ####[facility] [address] [place] [address] Medical Director: Fahad Csat MD Chloride [Moles/Vol] 108 mmol/L Normal 100-109 [facility] Comment on above: Performed By: #### 1 23462, 484961, 182666 ####[facility] [address] [place] [address] Medical Director: Fahad Cast MD CO2, venous 28.9 mmol/L Normal 21.0-32.0 [facility] Comment on above: Performed By: #### 1 45567, 192652, 098987 ####[facility] [address] [place] [address] Medical Director: Fahad Cast MD Creatinine [Mass/Vol] 1.0 mg/dL Normal 0.6-1.0 [facility] Comment on above: Performed By: #### 1 29817, 044761, 763019 ####[facility] [address] [place], [place] [address]) [phone] Director: Fahad Cast MD Glucose [Mass/Vol] 98 mg/dL Normal 72-100 [facility] Comment on above: Result Comment: Sharon puncture should occur prior to sulfasalazine administration due to the potential for falsely depressed results. Venipuncture should occur prior to sulfapyridine administration due to the potential falsely elevated results. Baseline assay values before administration of sulfasalazine and sulfapyridine therapy would not be affected. Performed By: #### 1 08291, 420993, 669625 ####[facility] [address] [place], [place] [address]) [phone] Director: Fahad Cast MD Potassium [Moles/Vol] 4.2 mmol/L Normal 3.5-5.1 [facility] Comment on above: Performed By: #### 1 65725, 773289, 128335 ####[facility] [address] [place], [place] [address]) [phone] Director: Fahad Cast MD Sodium [Moles/Vol] 144 mmol/L Normal 135-145 [facility] Comment on above: Performed By: #### 1 48102, 752923, 457286 ####[facility] [address] [place], [place] [address]) [phone] Director: Fahad Cast MD Urea nitrogen [Mass/Vol] 24 mg/dL High 10-20 [facility] Comment on above: Performed By: #### 1 40330, 325049, 884503 ####[facility] [address]pm[address] [place], [place] [address]) [phone] Director: Fahad Cast MD CBCNDon 03-11-2020 Erythrocyte distribution width (RBC) [Ratio] 14.4 % Normal 11.5-14.5 [facility] Comment on above: Performed By: #### 1 71606, 808575, 750663 #### [facility] [address] [place], [place] [address] Coal Handler: Fahad Cast MD Hematocrit (Bld) [Volume fraction] 33.9 % Low 36.0-46.0 [facility] Comment on above: Performed By: #### 1 54164, 327692, 649381 #### [facility] [address] [place], [place] [address] Coal Handler: Fahad Cast MD Hemoglobin (Bld) [Mass/Vol] 11.2 g/dL Low 12.0-16.0 [facility] Comment on above: Performed By: #### 1 07766, 094686, 139791 #### [facility] [address] [place] [address] Coal Handler: Fahad Cast MD MCH (RBC) [Entitic mass] 29.5 pg Normal 27.0-34.0 [facility] Comment on above: Performed By: #### 1 00311, 073875, 833632 #### [facility] [address] [place], [place] [address] Coal Handler: Fahad Cast MD MCHC (RBC) [Mass/Vol] 33.0 g/dL Normal 32.0-37.0 [facility] Comment on above: Performed By: #### 1 93285, 788961, 572206 #### [facility] [address] [place], [place] [address] Coal Handler: Fahad Cast MD MCV (RBC) [Entitic vol] 89.5 fL Normal 80.0-100.0 [facility] Comment on above: Performed By: #### 1 40129, 965863, 671309 #### [facility] [address] [place], [place] [address] Coal Handler: Fahad Cast MD Platelet mean volume (Bld) [Entitic vol] 6.8 fL Low 7.4-10.4 [facility] Comment on above: Performed By: #### 1 68320, 764124, 384211 #### [facility] [address] [place] [address] Coal Handler: Fahad Cast MD Platelets (Bld) [#/Vol] 232 x1000 Normal 150-450 [facility] Comment on above: Performed By: #### 1 61448, 172155, 162766 #### [facility] [address] [place] [address] Coal Handler: Fahad Cast MD RBC (Bld) [#/Vol] 3.79 x10 Low 4.20-5.40 [facility] Comment on above: Result Comment: Note : RBC morphology is normal unless otherwise stated. Evaluation performed only if differential is requested. Performed By: #### 1 44147, 660638, 371541 #### [facility] [address] [place] [address] Coal Handler: Fahad Cast MD WBC (Bld) [#/Vol] 5.8 10*3/uL Normal [facility] Comment on above: Performed By: #### 1 10157, 761856, 198812 #### [facility] [address] [place] [address] Coal Handler: Fahad Cast MD WBC (Bld) [#/Vol] 5.8 x10 Normal 4.5-11.0 [facility] Comment on above: Performed By: #### 1 69978, 247422, 235266 #### [facility] [address] [place] [address] Coal Handler: Fahad Cast MD D Dimer HSon 03-11-2020 D Dimer HS 821 ng/mL FEU High <=499 [facility] Comment on above: Result Comment: Excl usion of PE and DVT The D Dimer HS assay is reported in ng/ml Fibrinogen Equivalent Units (FEU). Per waste machine tender?s instructions for use, a value less than 500ng/ml (FEU) may help to exclude DVT and /or PE in outpatients when the assay is used with a clinical pretest probability assessment. D-Dimer used for DIC Screens Assay results should be used with other information, including the clinical context in forming a diagnosis. Performed By: #### C D:[id number] ####[facility] [address] [place] [address] Medical Director: Fahad Cast MD LDHon 03-11-2020 LDH 198 unit/L Normal 84-246 [facility] Comment on above: Performed By: #### 1 60777, 059162, 159072 #### [facility] [address] [place] [address] Coal Handler: Fahad Cast MD Progress Note-Physicianon Progress Note-Physician [...] medications. 6) DVT ppx: On Eliquis Normal [facility] Utilization Review Noteon Utilization Review Note ID Consult pending DISCHARGE WRITTEN AND PLANNED. Normal [facility] AUTO DIFFon 03-10-2020 Basophils (Bld) [#/Vol] 0.05 x1000 Normal 0.00-0.20 [facility] Comment on above: Performed By: #### 1 00690, 563060, 8974662 ####[facility] [address] [place] [address] Medical Director: Fahad Cast MD Basos % 0.6 % Normal [facility] Comment on above: Performed By: #### 1 84052, 803352, 7333542 ####[facility] [address]ltiv[address]175 [place] [address] Medical Director: Fahad Cast MD Eos Count 0.15 x1000 Normal 0.00-0.50 [facility] Comment on above: Performed By: #### 1 33330, 396896, 1759759 ####[facility] [address]whqd[address]14 [place] [address] Medical Director: Fahad Cast MD Eosinophils/100 WBC (Bld) 1.8 % Normal [facility] Comment on above: Performed By: #### 1 , 672887, 8130593 ####[facility] [address]mozkf[address] [place] [address] Medical Director: Fahad Cast MD Lymphocytes (Bld) [#/Vol] 1.05 x1000 Low 1.20-4.80 [facility] Comment on above: Performed By: #### 1 , 344625, 2924277 ####[facility] [address] [place] [address] Medical Director: Fahad Cast MD Lymphocytes/100 WBC (Bld) 12.7 % Normal [facility] Comment on above: Performed By: #### 1 , 934396, 5670988 ####[facility] [address]dp[address] [place] [address] Medical Director: Fahad Cast MD Cataño Count 0.70 x1000 Normal 0.10-1.00 [facility] Comment on above: Performed By: #### 1 , 330299, 0686626 ####[facility] [address]fltvk[address]70 [place] [address] Medical Director: Fahad Cast MD Monocytes/100 WBC (Bld) 8.4 % Normal [facility] Comment on above: Performed By: #### 1 33548, 541664, 6812282 ####[facility] [address]48[address] [place] [address] Medical Director: Fahad Cast MD Neutrophils (Bld) [#/Vol] 6.32 x1000 Normal 1.40-8.80 [facility] Comment on above: Performed By: #### 1 51555, 627670, 9200180 ####[facility] [address]us[address] [place] [address] Medical Director: Fahad Cast MD Neutrophils/100 WBC (Bld) 76.4 % Normal [facility] Comment on above: Performed By: #### 1 , 690945, 8052342 ####[facility] [address]iol[address]qgg[address] [place] [address] Medical Director: Fahad Cast MD COMPMETAon 03-10-2020 Albumin [Mass/Vol] 3.4 g/dL Normal 3.4-5.0 [facility] Comment on above: Performed By: #### 1 , 551260, 9661754 ####[facility] [address] [place] [address] Medical Director: Fahad Cast MD Albumin/Globulin [Mass ratio] 0.8 {ratio} Normal [facility] Comment on above: Performed By: #### 1 , 059122, 1098147 ####[facility] [address] [place] [address] Medical Director: Fahad Cast MD Alk Phos 71 unit/L Normal 45-117 [facility] Comment on above: Performed By: #### 1 , 127725, 1721436 ####[facility] [address]hr[address] [place] [address] Medical Director: Fahad Cast MD Bilirubin [Mass/Vol] 0.37 mg/dL Normal 0.20-1.00 [facility] Comment on above: Result Comment: Use of this assay is not recommended for patients undergoing treatment with eltrombopag due to the potential for falsely elevated results. Performed By: #### 1 , 454091, 0920123 ####[facility] [address] [place] [address] Medical Director: Fahad Cast MD Calcium [Mass/Vol] 9.4 mg/dL Normal 8.5-10.5 [facility] Comment on above: Performed By: #### 1 97207, 132281, 1509023 ####[facility] [address]ktjm[address]43 [place] [address] Medical Director: Fahad Cast MD Chloride [Moles/Vol] 108 mmol/L Normal 100-109 [facility] Comment on above: Performed By: #### 1 97190, 414543, 4762042 ####[facility] [address]va[address]647 [place] [address] Medical Director: Fahad Cast MD CO2, venous 28.2 mmol/L Normal 21.0-32.0 [facility] Comment on above: Performed By: #### 1 18659, 468125, 5721910 ####[facility] [address] [place] [address] Medical Director: Fahad Cast MD Creatinine [Mass/Vol] 1.2 mg/dL High 0.6-1.0 [facility] Comment on above: Performed By: #### 1 80195, 807483, 8659873 ####[facility] [address]ry[address] [place] [address] Medical Director: Fahad Cast MD GFR AA 53 Normal [facility] Comment on above: Result Comment: Afri can Serbian GFR Calc Medical judgement is necessary to [...] for drug dosing. Performed By: #### 1 16440, 400165, 0436924 ####[facility] [address]wl[address]255 [place] [address] Medical Director: Fahad Cast MD GFR/1.73 sq M predicted among non-blacks MDRD (S/P/Bld) [Vol rate/Area] 44 mL/min/1.73m? Normal [facility] Comment on above: Result Comment: Non [...] for drug dosing. Performed By: #### 1 23869, 191570, 4882702 ####[facility] [address] [place] [address] Medical Director: Fahad Cast MD Globulin (S) [Mass/Vol] 4.0 g/dL Normal [facility] Comment on above: Performed By: #### 1 72295, 353244, 5945933 ####[facility] [address]pet[address] [place] [address] Medical Director: Fahad Cast MD Glucose [Mass/Vol] 143 mg/dL High 72-100 [facility] Comment on above: Result Comment: Sharon puncture should occur prior to sulfasalazine administration due to the potential for falsely depressed results. Venipuncture should occur prior to sulfapyridine administration due to the potential falsely elevated results. Baseline assay values before administration of sulfasalazine and sulfapyridine therapy would not be affected. Performed By: #### 1 68706, 057262, 9319187 ####[facility] [address]te[address] [place] [address] Medical Director: Fahad Cast MD GOT 18 unit/L Normal 15-37 [facility] Comment on above: Result Comment: Sharon puncture should occur prior to sulfasalazine and/or sulfapyridine administration due to the potential for falsely depressed results. Baseline assay values before administration of sulfasalazine and sulfapyridine therapy would not be affected. Performed By: #### 1 35141, 204095, 9705818 ####[facility] [address] [place] [address] Medical Director: Fahad Cast MD GPT 19 unit/L Normal 13-56 [facility] Comment on above: Result Comment: Sharon puncture should occur prior to sulfasalazine and/or sulfapyridine administration due to the potential for falsely depressed results. Baseline assay values before administration of sulfasalazine and sulfapyridine therapy would not be affected. Performed By: #### 1 92575, 398738, 2829721 ####[facility] [address] [place] [address] Medical Director: Fahad Cast MD Osmolality [Osmolality] 293 mOsm/kg Normal 275-295 [facility] Comment on above: Performed By: #### 1 94832, 972151, 6907158 ####[facility] [address]xlr16[address] [place] [address] Medical Director: Fahad Cast MD Potassium [Moles/Vol] 4.0 mmol/L Normal 3.5-5.1 [facility] Comment on above: Performed By: #### 1 13728, 356281, 2421099 ####[facility] [address] [place] [address] Medical Director: Fahad Cast MD Protein [Mass/Vol] 7.4 g/dL Normal 6.0-8.5 [facility] Comment on above: Performed By: #### 1 98557, 224244, 4215884 ####[facility] Tbigsmct[address]89 [place] [address] Medical Director: Fahad Cast MD Sodium [Moles/Vol] 142 mmol/L Normal 135-145 [facility] Comment on above: Performed By: #### 1 94550, 590114, 1711500 ####[facility] [address]33[address] [place] [address] Medical Director: Fahad Cast MD Urea nitrogen [Mass/Vol] 32 mg/dL High 10-20 [facility] Comment on above: Performed By: #### 1 89717, 030213, 5287478 ####[facility] [address] [place] [address] Medical Director: Fahad Cast MD Urea nitrogen/Creatinin e [Mass ratio] 26.7 mg/mg Normal [facility] Comment on above: Performed By: #### 1 72155, 183201, 9925163 ####[facility] [address] [place] [address] Medical Director: Fahad Cast MD COVID-19 by PCR SWEDon 03-10 COVID-19 by PCR SWED Positive Abnormal [facility] Comment on above: Result Comment: CALL ER COCO PRATIK 03/10/2020 18:23:22 EST BY SHF; RBR Performed By: #### C D:[id number] ####[facility] [address]ay[address]35[address] [place] [address] Medical Director: Fahad Cast MD CRP QUANTon 03-10-2020 C-Reactive Protein, Quantitative 0.8 mg/dL High 0.0-0.3 [facility] Comment on above: Performed By: #### 1 21103, [id number], [id number], [id number] #### [facility] [address] [place] [address] Coal Handler: Fahad Cast MD CT ABD PELVIS W [...] by: Oni Liu MD 03/10/2020 3:50 PM JIG INSPECTOR Technologist: LIEN BLANCA Dictated By: ONI LIU MD Signed By: OIN LIU MD Signed Out: 03/10/20 16:50:49 Normal [facility] D Dimer HSon 03-10-2020 D Dimer HS 264 ng/mL FEU Normal <=499 [facility] Comment on above: Result Comment: Excl usion of PE and DVT The D Dimer HS assay is reported in ng/ml Fibrinogen Equivalent Units (FEU). Per waste machine tender?s instructions for use, a value less than 500ng/ml (FEU) may help to exclude DVT and /or PE in outpatients when the assay is used with a clinical pretest probability assessment. D-Dimer used for DIC Screens Assay results should be used with other information, including the clinical context in forming a diagnosis. Performed By: #### 1 31361, [id number], :[id number], [id number] #### [facility] [address] [place] [address] Coal Handler: Fahad Cast MD ED Physician Reporton 2019 [...] including atrial fibrillation s/p cardiac ablation on is and HTN, presenting to the ED via [...] Line Saline Flush: 3 mL, IV Push, [id number] Documented Medications Documented Eliquis 5 mg oral [...] Interp, Sinus rhythm with first-degree AV block, DE interval 256, QT/QTc/433, incomplete right bundle branch [...] /100WBC NA Lymph % 12.7 % NA Cataño % 8.4 % NA Neutrophil % 76.4 % NA Eosin % 1.8 % NA Basos % 0.6 % NA Lymph Count 1.05 x1000 LOW Cataño Count 0.70 x1000 NORMAL Neutrophil Count (ANC) [...] lung pleural bone abnormalities. Electronically signed by: Moane Hernandez MD 03/10/2020 1:58 PM JIG INSPECTOR Signed By: MONAE HERNANDEZ MD CT ABD [...] by: Oni Liu MD 03/10/2020 3:50 PM JIG INSPECTOR Signed By: ONI LIU MD . Notes: [...] Course: improving. Impression and Plan Diagnosis Syncope ([id number], Working, Medical) Plan Condition: Stable. Disposition: [...] accurately records my words and actions.. Normal [facility] ED Pre-Arrival Formon 2019 ED Pre-Arrival Form Pre-Arrival Summary Name: AYAN, Current Date: 03/10/2020 13:52:19 EST Gender: Date of : Age: Pre-Arrival Type: EMS ETA: 03/10/2020 14:15:00 EST Primary Care Physician: Presenting Problem: Pre-Arrival User: Neil Vázquez RN Referring Source: Location: 1 [facility] Emergency Department [address] [place] [address] ____ Notes: Vital Signs: Doctor Call Back: DNR Status: Miscellaneous Issues: Normal [facility] ED Progress Noteon 0 ED Progress Note report not put in by previous rn pt here for syncopal episode after diarrhea episode pt has hx of afib. pt covid+ report called to neil rn will come get pt Normal [facility] FERRITINon 03-10-2020 Ferritin [Mass/Vol] 32 ng/mL Normal 8-252 [facility] Comment on above: Performed By: #### 1 [id number], [id number], [id number] [id number] #### [facility] [address] [place] [address] Coal Handler: Fahad Cast MD HEMOon 03-10-2020 DIFF? No Normal [facility] Comment on above: Performed By: #### 1 70931, 805975, [id number] ####[facility] [address] [place], [place] [id number]) [phone] Director: Fahad Cast MD Erythrocyte distribution width (RBC) [Ratio] 14.5 % Normal 11.5-14.5 [facility] Comment on above: Performed By: #### 1 03783, 621828, [id number] ####[facility] [address] [place], [place] [id number]) [phone] Director: Fahad Cast MD Hematocrit (Bld) [Volume fraction] 35.8 % Low 36.0-46.0 [facility] Comment on above: Performed By: #### 1 42701, 439676, [id number] ####[facility] [address] [place], [place] [id number]) [phone] Director: Fahad Cast MD Hemoglobin (Bld) [Mass/Vol] 11.7 g/dL Low 12.0-16.0 [facility] Comment on above: Performed By: #### 1 18701, 195032, [id number] ####[facility] [address] [place] [address] Medical Director: Fahad Cast MD MCH (RBC) [Entitic mass] 29.4 pg Normal 27.0-34.0 [facility] Comment on above: Performed By: #### 1 20060, 932110, [id number] ####[facility] [address] [place] [address] Medical Director: Fahad Cast MD MCHC (RBC) [Mass/Vol] 32.7 g/dL Normal 32.0-37.0 [facility] Comment on above: Performed By: #### 1 86937, 229542, [id number] ####[facility] [address] [place] [address] Medical Director: Fahad Cast MD MCV (RBC) [Entitic vol] 89.8 fL Normal 80.0-100.0 [facility] Comment on above: Performed By: #### 1 , 322714, [id number] ####[facility] [address] [place] [address] Medical Director: Fahad Cast MD Nucleated RBC (Bld) [#/Vol] 0 /100WBC Normal [facility] Comment on above: Performed By: #### 1 31151, 205943, [id number] ####[facility] [address] [place] [address] Medical Director: Fahad Cast MD Platelet mean volume (Bld) [Entitic vol] 6.7 fL Low 7.4-10.4 [facility] Comment on above: Performed By: #### 1 57060, 387460, 6203915 ####[facility] [address] [place] [address] Medical Director: Fahad Cast MD Platelets (Bld) [#/Vol] 252 x1000 Normal 150-450 [facility] Comment on above: Performed By: #### 1 94265, 523242, 4854562 ####[facility] [address] [place] [address] Medical Director: Fahad Cast MD RBC (Bld) [#/Vol] 3.99 x10 Low 4.20-5.40 [facility] Comment on above: Result Comment: Note : RBC morphology is normal unless otherwise stated. Evaluation performed only if differential is requested. Performed By: #### 1 86633, 164977, 3497631 ####[facility] [address] [place], [place] [id number]) [phone] Director: Fahad Cast MD WBC (Bld) [#/Vol] 8.3 10*3/uL Normal [facility] Comment on above: Performed By: #### 1 69620, 168770, 1855804 ####[facility] [address] [place], [place] [id number]) [phone] Director: Fahad Cast MD WBC (Bld) [#/Vol] 8.3 x10 Normal 4.5-11.0 [facility] Comment on above: Performed By: #### 1 73507, 948943, 5741226 ####[facility] [address] [place], [place] [id number]) [phone] Director: Fahad Cast MD History and Physicalon [...] 18:00) Resp Rate 19 br/min (MAR 10 14:) SBP 105 mmHg (MAR 10 16:00) DBP L 50mmHg (MAR 10 16:) Physical Exam: General: No acute distress. HEENT: [...] ppx: On Eliquis OT MESA on Normal [facility] LACTATEon 03-10-2020 Lactate [Moles/Vol] 1.8 mmol/L Normal 0.4-2.0 [facility] Comment on above: Performed By: #### 1 37644 #### [facility] [address] [place] [address] Coal Handler: Fahad Cast MD LIPon 03-10-2020 Lipase [Catalytic activity/Vol] 135 unit/L Normal 73-393 [facility] Comment on above: Performed By: #### 1 77879, 374447, 443083 ####[facility] [address] [place], [place] [id number] Medical Director: Fahad Cast MD MG LEVELon 03-10-2020 Magnesium [Mass/Vol] 1.9 mg/dL Normal 1.6-2.6 [facility] Comment on above: Performed By: #### 1 49937, 315582, 498386 ####[facility] [address] [place] [address] Medical Director: Fahad Cast MD PCTon 03-10-2020 Procalcitonin <0.05 Normal [facility] Comment on above: Result Comment: INTE [...] or septic shock. Performed By: #### 1 65669, [id number], [id number] #### [facility] [address] [place] [address] Coal Handler: Fahad Cast MD TROPONINon 03-10-2020 Troponin I.cardiac [Mass/Vol] ng/mL Normal 0.000-0.099 [facility] Comment on above: Result Comment: This test is a quantitative determination of cardiac troponin I. High levels of serum biotin may interfere with this test. Performed By: #### 1 67635, 115143, 239664 ####[facility] [address] [place] [address] Medical Director: Fahad Cast MD XR CHEST [...] by: Monae Hernandez MD 03/10/2020 1:58 PM JIG INSPECTOR Technologist: THANG JAMES Dictated By: MONAE HERNANDEZ MD Signed By: MONAE HERNANDEZ MD Signed Out: 03/10/20 14:58:26 Normal [facility] Vital Signs Date Time Vital Sign Value Performing Clinician Facility 10-30-2022 14:45-0400 Body height 165.1 cm Elliot Starks Other [facility] Other 10-30-2022 14:45-0400 Body mass index (BMI) [Ratio] 28.4 kg/m2 Elliot Starks Other [facility] Other 10-30-2022 14:45-0400 Body weight 77.43 kg Elliot Starks Other [facility] Other 10-30-2022 14:45-0400 Diastolic blood pressure 66 mm[Hg] Elliot Starks Other [facility] Other 10-30-2022 14:45-0400 Systolic blood pressure 123 mm[Hg] Elliot Starks Other [facility] Other 06-04-2022 11:30-0500 Body height 165.1 cm Elliot Starks Other [facility] Other 06-04-2022 11:30-0500 Body mass index (BMI) [Ratio] 28.29 kg/m2 Elliot Starks Other [facility] Other 06-04-2022 11:30-0500 Body weight 77.11 kg Elliot Starks Other [facility] Other 06-04-2022 11:30-0500 Diastolic blood pressure 64 mm[Hg] Elliot Starks Other [facility] Other 06-04-2022 11:30-0500 SaO2% (BldA) [Mass fraction] 99 % Elliot Starks Other [facility] Other 06-04-2022 11:30-0500 Systolic blood pressure 104 mm[Hg] Elliot Starks Other [facility] Other Encounters Encounter Date Encounter Type Care Provider Facility Start: 05-27-2023 ambulatory [facility]a Miller [facility] Start: 05-14-2023 ambulatory [facility] Start: 05-14-2023 ambulatory [facility] Start: 05-14-2023 End: 05-14-2023 Subsequent hospital visit by physician Miko Ohara MD Work Phone: [facility] Start: 03-30-2023 (Televisit) Televisit Elliot Dela Cruz [facility] Start: 03-30-2023 End: 03-30-2023 ambulatory Elliot Starks Other [facility] Other Start: 02-11-2023 End: 02-12-2023 ambulatory Alfreda Miller [facility] Start: 02-11-2023 End: 02-11-2023 Patient encounter procedure Alfreda Miller [facility] Start: 11-17-2022 End: 11-17-2022 ambulatory Elliot Starks Other [facility] Other Start: 11-17-2022 Telephone encounter Elliot Starks [facility] Start: 11-06-2022 ambulatory Alfreda Miller Facility:[facility] Start: 10-30-2022 End: 10-30-2022 ambulatory Elliot Starks Other [facility] Other Start: 10-30-2022 Office outpatient visit 15 minutes Elliot Starks [facility] Start: 10-29-2022 End: 10-29-2022 ambulatory Elliot Starks Other [facility] Other Start: 10-29-2022 Telephone encounter Elliot Raudel [facility] Start: 10-27-2022 Nursing evaluation o f patient and report Elliot Starks [facility] Start: 10-27-2022 End: 10-27-2022 ambulatory Elliot Starks [facility] Other Start: 10-27-2022 End: 10-27-2022 Departed Referred MD Elliot Starks Work Phone: [facility] [place] Work Phone: Start: 09-11-2022 Telephone encounter Matt Duron Hematology/Oncology Comment on above: Orders Start: 08-11-2022 End: 08-11-2022 ambulatory Elliot Starks Other [facility] Other Start: 08-11-2022 Nursing evaluation o f patient and report Elliot Starks [facility] Start: 07-17-2022 (Televisit) Televisit Elliot Dela Cruz [facility] Start: 07-17-2022 End: 07-17-2022 ambulatory Elliot Starks Other [facility] Other Start: 06-23-2022 End: 06-23-2022 ambulatory Elliot Starks Other [facility] Other Start: 06-23-2022 Nursing evaluation o f patient and report Elliot Starks [facility] Start: 06-09-2022 End: 06-09-[address] ELLIOT STARKS Facility:[facility] Start: 06-06-2022 End: 06-06-2022 ambulatory Elliot Starks Other [facility] Other Start: 06-06-2022 Telephone encounter Elliot Starks [facility] Start: 06-04-2022 End: 06-04-2022 ambulatory Elliot Starks Other [facility] Other Start: 06-04-2022 Office outpatient visit 25 minutes Elliot Starks [facility] Start: 05-21-2022 End: 05-21-2022 ambulatory Elliot Starks Other [facility] Other Start: 05-21-2022 Telephone encounter Elliot Starks [facility] Start: 04-26-2022 End: 04-26-[address] ELLIOT STARKS Facility:[facility] Start: 04-14-2022 End: 04-14-[address] ELLIOT STARKS Facility:[facility] Start: 10-03-2021 Telephone encounter Andrew black MD Work Phone: Hematology/Oncology Comment on above: Lab Orders Start: 09-26-2021 Telephone encounter Mikaela jimenez RN Work Phone: Hematology/Oncology Comment on above: Radiology Mammogram Start: 12-02-2016 End: 12-03-2016 Ambulatory DEFAULT PHYSICIAN Facility:[facility] Procedures Date Procedure Procedure Detail Performing Clinician Start: 09-25-2020 Mammography Mikaela jimenez RN Work Phone: Start: 10-07-2019 Adult depression scr eening assessment Mikaela Dominguez RN Work Phone: Start: 01-01-2017 Screening mammography Deric Starks Other Start: 02-01-2013 General examination of patient Elliot Starks Other Appendectomy Alfreda Miller Bilateral cataracts (disorder) Alfreda Miller Cardiac ablation sys tem (physical object) Alfreda Miller Cholecystectomy Alfreda Miller Insertion of hip prosthesis Alfreda Miller Lumpectomy of left breast Ka gonsalo Miller Rotator cuff includi ng muscles and tendons (body structure) Alfreda Miller Screening for malign ant neoplasm of breast Elliot Raudel Other Total abdominal hysterectomy Alfreda Miller Plan of Treatment Date Care Activity Detail Author Start: 10-09-2023 DIABETES SCREEN DIABETES SCREEN [facility] Start: 01-02-2023 COVID-19 VACCINE ( season) COVID-19 VACCINE ( season) [facility] Start: 01-02-2023 Influenza vaccination INFLUENZA (Sea son Ended) [facility] Start: 10-27-2022 Bacteria identified in Urine by Culture [facility] Start: 05-04-2022 ADVANCE DIRECTIVE DISCUSSION ADVANCE DIRECTIVE DISCUSSION [facility] Start: 05-04-2022 DEPRESSION ASSESSMENT DEPRESSION ASS ESSMENT [facility] Start: 01-02-2022 Influenza vaccination INFLUENZA (Sea son Ended) [facility] Start: 10-07-2021 End: 12-07-2021 Cancer Ag 27-29 [Units/volume] in Serum or Plasma CA 27.29 BLOOD Lab Routine Malignant neoplasm of upper-outer quadrant of left breast in female, estrogen receptor positive (HCC) Expected: 10/07/2021, Expires: 12/07/2021 [facility] Work Phone: Comment on above: Expected: 10/07/2021 , Expires: 12/07/2021 Start: 10-07-2021 End: 12-07-2021 CBC W Auto Differential panel - Blood CBC + DIFF Lab Routine Malignant neoplasm of upper-outer quadrant of left breast in female, estrogen receptor positive (HCC) Expected: 10/07/2021, Expires: 12/07/2021 [facility] Work Phone: Comment on above: Expected: 10/07/2021 , Expires: 12/07/2021 Start: 10-07-2021 End: 12-07-2021 Comprehensive metabolic 2000 panel - Serum or Plasma COMP METABOLIC PANEL Lab Routine Malignant neoplasm of upper-outer quadrant of left breast in female, estrogen receptor positive (HCC) Expected: 10/07/2021, Expires: 12/07/2021 [facility] Work Phone: Comment on above: Expected: 10/07/2021 , Expires: 12/07/2021 Start: 09-25-2021 Mammography MAMMOGRAM [facility] Start: 05-04-2021 ADVANCE DIRECTIVE DISCUSSION ADVANCE DIRECTIVE DISCUSSION [facility] Start: 11-17-2020 COVID-19 VACCINE (3 - Booster for Pfizer series) COVID-19 VACCINE (3 - Booster for Pfizer series) [facility] Start: 10-06-2020 Adult depression screening assessment DEPRESSION SCREENING [facility] Start: 08-15-2020 COVID-19 VACCINE (3 - Booster for Pfizer series) COVID-19 VACCINE (3 - Booster for Pfizer series) [facility] Start: 01-05-2019 PNEUMOCOCCAL: 65+ (2 - PCV) PNEUMOCOCCAL: 65+ (2 - PCV) [facility] Start: 07-07-2012 BONE DENSITY BONE DENSITY [facility] Start: 07-07-1997 SHINGRIX VACCINE (1 of 2) SHINGRIX VACCINE (1 of 2) [facility] Start: 07-07-1997 Zoster vaccine hzv l david for subcutaneous use ZOSTER (SHINGLES) VACCINE (1 of 2) [facility] Start: 07-07-1992 COLOGUARD (FIT-DNA) COLOGUARD (FIT-D NA) [facility] Start: 07-07-1992 Colonoscopy COLONOSCOPY [facility] Start: 07-07-1992 COLORECTAL CANCER SCREENING COLORECTAL CANCER SCREENING [facility] Start: 07-07-[address] COLONOGRAPHY [facility] Start: 07-07-1992 FECAL OCCULT BLOOD FECAL OCCULT BLOO D [facility] Start: 07-07-1992 LIPID SCREEN LIPID SCREEN [facility] Start: 07-07-1992 Screening for malign ant neoplasm of colon COLORECTAL CANCER SCREENING DISCUSSION [facility] Start: 07-07-1992 SIGMOIDOSCOPY SIGMOIDOSCOPY [facility] Start: 1987 Lipid panel LIPID SCREENING [facility] Start: 1987 Screening for malign ant neoplasm of breast MAMMOGRAM SCREENING DISCUSSION [facility] Start: 07-07-1968 Screening for malign ant neoplasm of cervix CERVICAL CANCER SCREENING DISCUSSION [facility] Start: 07-07-1966 Third diphtheria, tetanus and acellular pertussis (DTaP) vaccination TDAP (ADULT) [facility] Start: 07-07-1966 Urine microalbumin profile DTAP,TDAP,TD (1 - Tdap) [facility] Start: 07-07-1965 HEPATITIS C SCREENING HEPATITIS C SC REENING [facility] Start: 07-07-1953 PNEUMOCOCCAL: 65+ (1 - PCV) PNEUMOCOCCAL: 65+ (1 - PCV) [facility] Start: 1947 Hepatitis C screening HEPATITI S C VIRUS SCREENING [facility] Start: 1945 Screening for osteoporosis DEXA SCAN DISCUSSION [facility] Start: 1945 Tetanus vaccination TETANUS [facility] End: 10-26-2022 AUGUSTINA SCREENING W YAW AUGUSTINA SCREENING W YAW Radiology Routine Encounter for screening mammogram for malignant neoplasm of breast 1 Occurrences starting 09/26/2021 until 10/26/2022 [facility] Work Phone: Comment on above: 1 Occurrences starti ng 09/26/2021 until 10/26/2022 End: 10-11-2023 AUGUSTINA SCREENING W YAW AUGUSTINA SCREENING W YAW Radiology Routine Encounter for screening mammogram for malignant neoplasm of breast 1 Occurrences starting 09/11/2022 until 10/11/2023 [facility] Work Phone: Comment on above: 1 Occurrences starti ng 09/11/2022 until 10/11/2023 XR Pelvis and Hip - right Views XR HIP WITH PELVIS RIGHT Imaging Routine Primary osteoarthritis of right hip 05/14/2023 9:20 AM EST [facility] Work Phone: [facility] Immunizations Immunization Date Immunization Notes Care Provider [facility] 02-10-2023 influenza virus vaccine, unspecified formulation Alfreda Miller [facility] 02-01-2022 influenza virus vaccine, unspecified formulation Alfreda Lue [facility] 08-13-2021 SARS-CoV-2 mRNA (solvhgujxsp-mzsp-dpisd se) vaccine Alfreda Lue [facility] 01-29-2021 SARS-CoV-2 (COVID-19 ) mRNA BNT-162b2 vax Alfreda Lue [facility] Comment on above: Result Comment: 2022: [id number] 06-20-2020 COVID-19 vaccine, ag e 12+ yr (PFIZER-BIONTECH - PURPLE TOP) Mikaela Dominguez RN Work Phone: [facility] 05-28-2020 SARS-CoV-2 (COVID-19 ) mRNA BNT-162b2 vax Alfreda Lue [facility] 05-18-2020 COVID-19 vaccine, ag e 12+ yr (PFIZER-BIONTECH - PURPLE TOP) Mikaela Dominguez RN Work Phone: [facility] 01-27-2020 influenza virus vaccine, split virus (incl. purified surface antigen) Elliot Starks Other [facility] Other 01-27-2020 influenza virus vaccine, unspecified formulation Alfreda Lue [facility] 01-20-2019 influenza virus vaccine, unspecified formulation Alfreda Lue [facility] 01-20-2019 influenza, high dose seasonal, preservative-free Mikaela Dominguez RN Work Phone: [facility] 03-09-2018 influenza virus vaccine, unspecified formulation Alfreda Lue [facility] 01-05-2018 influenza virus vaccine, split virus (incl. purified surface antigen) Elliot Starks Other [facility] Other 01-05-2018 influenza virus vaccine, unspecified formulation Alfreda Lue [facility] 01-05-2018 influenza, high dose seasonal, preservative-free Mikaela Dominguez RN Work Phone: [facility] 01-05-2018 pneumococcal polysaccharide vaccine, 23 valent Mikaela Dominguez RN Work Phone: [facility] 02-25-2017 influenza virus vaccine, unspecified formulation Alfreda Lue [facility] 02-17-2017 pneumococcal polysaccharide vaccine, 23 valent Alfreda Lue [facility] 02-05-2017 influenza virus vaccine, split virus (incl. purified surface antigen) Elliot Starks Other [facility] Other 02-05-2017 influenza virus vaccine, unspecified formulation Alfreda Lue [facility] 02-05-2017 pneumococcal conjuga te vaccine, 13 valent Alfreda Lue [facility] 02-01-2002 pneumococcal polysaccharide vaccine, 23 valent Elliot Starks Other [facility] Other Payers Date Payer Category Payer Self-pay 2014 Medicare [employer] MEDICARE A ETNA MEDICARE PPO [id number] 2014-Present [phone] [address] [place] [address] PPO [id number] 2014 Medicare [id number] 1959 Medicare [id number] 1947 Unknown [id number] 93 1947 Unknown [id number] 93 1947 Unknown [id number] 93 1947 Unknown [id number] 27 1947 Unknown [id number] 27 1947 Unknown [id number] 83 1947 Unknown [id number] 83 1947 Unknown [id number] 83 Private Health Insurance [employer] [facility] [id number] Unknown Unknown [id number] 31 Social History Date Type Detail Facility Start: 12-03-2015 End: 02-11-2023 Tobacco smoking status NHIS Ex-smoker [facility] End: 12-05-1990 History of tobacco use Current smoker [facility] Start: 12-03-2015 End: 05-14-2023 Cigarettes smoked current (pack per day) - Reported 1 [facility] Start: 12-03-2015 End: 05-14-2023 Tobacco use and exposure Smokeless tobacco non-user [facility] Start: 10-08-2020 Alcohol intake Current drinke r of alcohol (finding) [facility] Start: 1945 Sex Assigned At Not on file C [facility] Start: 05-14-2023 Sex Assigned At F [facility] End: 12-05-1990 History of tobacco use Cigarette Smoker [facility] Start: 1945 Sex Assigned At Female F [facility] Tobacco smoking status Never [facility] Start: 05-14-2023 Tobacco smoking stat us NHIS Never smoked tobacco [facility] Functional Status Date Assessment Result Facility 02-11-2023 Functional Status N/A [facility] Clinical Notes 09-26-2021 to 03-30-2023 Note [...] verbalizes understanding and agrees with tx plan. [facility] Other 10-11-2023 NoteChief Complaint Referral *Frequent UTI [...] states that she was put on a longterm abx which has helped a lot. Pt [...] [facility]asional visible blood w/UTI. UA today shows moderate blood. Discussed doing a hematuria workup if the pt would like to. Pt states that she is not worried aboutthis and does not see the need to have t (more content not included)...[facility]Result Comment: Electronically Signed By: Alfreda Miller MD\.br\Date and Time Signed: 02/11/23 12:13EDT\.br\Electronically Co-Signed By: Karlee Ramos\.br\Date and Time Co-Signed: 02/11/23 11:16 [id number] Hospital Discharge instructions Patient Education 02/11/2023 11:16:08 [...] provider. Document Revised: 08/29/2021 Document Reviewed: 08/29/2021 [employer] Patient Education 2022 [employer]. Follow Up Care 11/06/2022 15:31:52 With:Paul VILLEGAS, PERLA Araujo, URO Address: When:Within 3 Month(s) [facility] 07-17-2023 Evaluation note* Encounter Date Diagnosis Assessment Notes Treatment Notes Treatment Clinical Notes Nov, Dysuria (ICD-10 - R30.0) [facility] Other 06-29-2023 Evaluation note* Encounter Date Diagnosis Assessment Notes Treatment Notes Treatment Clinical Notes Oct, Frequent UTI (ICD-10 - N39.0) Pt requests Urology referral. Discussed also getting CT to move along process. Oct, Dyshidrotic eczema (ICD-10 - L30.1) Will treat with steroid cream prn [facility] Other 06-26-2023 Evaluation note* Encounter Date Diagnosis Assessment Notes Treatment Notes Treatment Clinical Notes Oct, Dysuria (ICD-10 - R30.0) [facility] Other 05-11-2023 Miscellaneous Notes* Telephone Encounter - Matt Adams RN - 09/11/2022 11:43 AM EDT Order faxed to [facility] and pt is aware. Matt Adams RN * Telephone Encounter - Matt Adams RN - 09/11/2022 9:51 AM EDT Pt called to request yearly Mammogram order I have pended order as previously completed Pt requests to fax to Nori Lema [phone] BRM/HM: please review and sign if agreeable Matt Adams RN [facility]* Encounter Date Diagnosis Assessment Notes Treatment Notes Treatment Clinical Notes Aug, Dysuria (ICD-10 - R30.0) [facility] Other 03-16-2023 Evaluation note* Encounter Date Diagnosis [...] N32.81) chronic and improved on present med [facility] Other 02-20-2023 Evaluation note* Encounter Date Diagnosis Assessment Notes Treatment Notes Treatment Clinical Notes Jun, Dysuria (ICD-10 - R30.0) [facility] Other 02-03-2023 Evaluation note* Encounter Date Diagnosis Assessment Notes Treatment Notes Treatment Clinical Notes Jun, OAB (overactive bladder) (ICD-10 - N32.81) [facility] Other 02-01-2023 Evaluation note* Encounter Date Diagnosis Assessment Notes Treatment Notes Treatment Clinical Notes Jun, OAB (overactive bladder) (ICD-10 - N32.81) Patient request to try new medication reviewed side effect profile. Patient declines urology or [facility] referral at this time. Jun, Essential hypertension (ICD-10 - I10) reviewed and updated medications she will follow-up with cardiology in Jun, Hypokalemia (ICD-10 - E87.6) Reviewed and updated medications. Discussed foods that are high in potassium Jun, Right lumbar pain (ICD-10 - M54.50) Follow-up with Dr. Rivera as scheduled in June. She does have limping with her gait. [facility] Other 08-18-2022 Note [id number]08-17-2022 NoteEducation Materials POST OPERATIVE TOTAL HIP [...] can be done to rule of a DVT.[facility] [id number] [facility] Clinical Discharge Summary PERSON INFORMATION Name BETTIE BURNS Age 76 Years 1945 Sex FEMALE Language Azerbaijani PCP Raudel VILLEGAS, Elliot Nayak Marital Status Med Service Observation Acct# Arrival 12/16/2021 06:48:01 Visit Reason Surgery- Right Total Hip Acuity LOS 000 47:46 Address: [address] [place] [id number] Comment: PROVIDER INFORMATION VITALS INFORMATION Vital Sign [...] range between ( 1.3 and 2.9 ) Cataño Abs#: 0.9 x103/mcL -- Normal range between ( 0.0 and 0.8 ) Auto Baso %: 0.2 % -- Normal range between ( 0.2 and 2.0 ) Auto Cataño %: 11 % -- Normal range between [...] INCOMPLETE INFORMATION PATIENT EDUCATION INFORMATION Instructions: Nicole [facility] Extended Care PT instructions (MHRACHELLE) Follow up: With: Address: When: Melchor Rivera [address], [address] [place] [address] Business (1) 12/24/2021 2:30 AM With: Address: When: Elliot Starks [address] (more content not included)...[facility] [id number] Betty sheets called pt to [...] [Verified on: 12/12/2021 12:34 EDT] Maddison Simons [facility]07-25-2022 NoteDrLobo Trevizo reviews PAT information and testing results. Ok to proceed with procedure, no orders. [Electronically Signed on: 11/25/2021 12:23 EDT] Steffanie Damian RN [Verified on: 11/25/2021 12:23 EDT] Steffanie Damian [facility]05-26-2022 Miscellaneous Notes* Telephone Encounter - Andrew Choi MD - 09/26/2021 5:13 PM EDT Okay to change to screening mammogram. Order signed. ASIYA Ford * Telephone Encounter - Mikaela Dominguez RN - 09/26/2021 2:33 PM EDT Pt scheduled for diagnostic mamm tomorrow @ [facility] Hospital calls to ask if this could be changed to a screening mammogram since the pt is greater than 2 years from diagnosis? Mikael[facility]inguez [facility] Future Appointments Appointment Date:05/27/2023 08:45:00 AM Scheduled Provider:Paul VILLEGAS, Alfreda Palacios Location:[facility] Appointment Type:URO Office Visit [facility] evaluation note* Diagnosis Encounter for screening mammogram for malignant neoplasm of breast- Primary Other screening mammogram documented in this encounter [facility] note* Diagnosis Malignant neoplasm of upper-outer quadrant of left breast in female, estrogen receptor positive (HCC)- Primary documented in this encounter [facility] noteNo InformationNort [email or web address] Other Evaluation note* Diagnosis Encounter for screening mammogram for malignant neoplasm of breast- Primary Other screening mammogram documented in this encounter [facility] noteNo assessment information [facility] Work Phone: History general Narrative - [...] replacement 12/16/2021 Hospitalization History SEE SURGICAL HX [facility] Other Hospital course Narrative No data available for this section [facility] progress note No data available for this section [facility] reason for referral (narrative)* Diagnostic Procedure Only (Routine) - Pending Review Specialty Diagnoses / Procedures Referred By Contac t Referred To Contact [facility] Diagnoses Encounter for screening mammogram for malignant neoplasm of breast Procedures AUGUSTINA SCREENING W YAW SCREENING DIGITAL BREAST TOMOSYNTHESIS BI SCREENING MAMMOGRAPHY BI 2-VIEW BREAST INC Andrew Miguel MD [address] [place] [address] [place] [address] [facility] [address] [place] [address] Referral ID Status Reason Start Date Expiration Date Visits Requested Visits Authorized [id number] Pending Review Auto-Generat ed Referral 09/26/2021 10/26/2022 1 1 [facility] for referral (narrative)* Diagnostic Procedure Only (Routine) - Pending Review Specialty Diagnoses / Procedures Referred By Contac t Referred To Contact [facility] Diagnoses Encounter for screening mammogram for malignant neoplasm of breast Procedures AUGUSTINA SCREENING W YAW SCREENING DIGITAL BREAST TOMOSYNTHESIS BI SCREENING MAMMOGRAPHY BI 2-VIEW BREAST INC Andrew Miguel MD [address] [place] [address] [place] [address] [facility] [address] [place] [address] Referral ID Status Reason Start Date Expiration Date Visits Requested Visits Authorized [id number] Pending Review Auto-Generat ed Referral 09/11/2022 10/11/2023 1 1 [facility] Summary Purpose Family History No Family History [...] Found Reason for Referral Reason *FU 11/12 [place] office Diagnosis 1 Frequent UTI (N39.0) Referral Organization [facility] Referring Provider First Name Elliot Referring Provider Last Name Raudel Referring Provider Specialty Family [facility] cine Referred Organization [facility] Referred Provider ALFREDA MILLER Referred Address [address] [facility] [place], [place],[address] Referred Provider Specialty Urology Referral Priority Routine General Notes Victoria Lisa 11:03:05 AM >received today, notes attached, along with labs and ins, waiting for notes to be locked before faxing Victoria Lisa 11/05/2022 02:44:05 PM >referral faxed Additional Source Comments INFORMATION SOURCE (unrecogn ized section and content) DATE CREATED AUTHOR 10/28/2017 [facility] DATE CREATED AUTHOR AUTHOR'S ORGANIZ ATION 03/21/2020 [facility] DATE CREATED AUTHOR AUTHOR'S ORGANIZ ATION 09/13/2021 [facility] dical Specialist DATE CREATED AUTHOR AUTHOR'S ORGANIZ ATION 01/13/2022 [facility] DATE CREATED AUTHOR AUTHOR'S ORGANIZ ATION 06/11/2022 [facility] DATE CREATED AUTHOR AUTHOR'S ORGANIZ ATION 09/13/2022 [facility] DATE CREATED AUTHOR AUTHOR'S ORGANIZ ATION 11/18/2022 [facility] DATE CREATED AUTHOR AUTHOR'S ORGANIZ ATION 02/18/2023 [facility] DATE CREATED AUTHOR AUTHOR'S ORGANIZ ATION 05/16/2023 [facility] samanta Source Comments (unrecognize d section and content) In the event this informatio n is protected by the Federal Confidentiality of Alcohol and Drug Abuse Patient Records regulations: The Federal rules restrict any use of the information to criminally investigate or prosecute any alcohol or drug abuse patient.[facility] the event this information is protected by the Federal Confidentiality of Alcohol and Drug Abuse Patient Records regulations: The Federal rules restrict any use of the information to criminally investigate or prosecute any alcohol or drug abuse patient.[facility] Dayton[facility] the event this information is protected by the Federal Confidentiality of Alcohol and Drug Abuse Patient Records regulations: The Federal rules restrict any use of the information to criminally investigate or prosecute any alcohol or drug abuse patient.[facility] Reason for Visit (unrecogniz ed section and content) Reason Comments Radiology Mammogram Reason Comments Lab Orders Reason Comments Orders Specialty Diagnoses / Procedures Referred By Contac t Referred To Contact Diagnoses Primary osteoarthritis of right hip Procedures XR HIP WITH PELVIS RIGHT Miko Ohara MD [address] [place] [address] Referral ID Status Reason Start Date Expiration Date V isits Requested Visits Authorized [id number] New Request 05/06/2023 05/30/2024 1 1 Care Teams (unrecognized sec tion and content) Recreational Counselor Relationship Specialty Start Date End Date Elliot Starks MD [address] [place] [address] PCP - General Family Practice 11/26/15 Recreational Counselor Relationship Specialty Start Date End Date Elliot Starks MD [address] [place] [address] PCP - General Family Practice 11/26/15 Recreational Counselor Relationship Specialty Start Date End Date Elliot Starks MD [address] [place] [address] PCP - General Family Medicine 11/26/15 Team Status: Inactive Member Role Status Dates Elliot Starks MD Attending Provider Active Recreational Counselor Relationship Specialty Start Date End Date Elliot Starks MD [address] [place] [address] PCP - General Family Medicine [...] BE BASED ON THE PRIMARY CLINICAL RECORDS. [facility] [employer] [facility]. provides no warranty or guarantee of the accuracy or completeness of information in this document.
--- NOTE | 2023-05-18 14:41 | P.CN_ITS ---
Consult Note: HPI Data of Consult Patient: known to practice within the last 3 years Consult date: 05/18/23 Requesting Physician: Daisy Liz MD Primary Care Provider: Marine Glass MD Consult Narrative Reason for consult: Neck pain Narrative: 77yof who presents for assessment. significant axial neck pain that is worsened with lateral rotation. denies any trauma to area. multiple ER trips, CT completed, which did not show any fracture, but significant for spondylosis in mid and lower cervical spine. she continues in >6 weeks of chiropractic therapy, but this has made pain worse. has tried MDP, muscle relaxant, with limited benefit. denies adverse med side effects. cc:: CC: Daisy Liz MD Review of Systems ROS Status of ROS 10 or more systems reviewed and unremark able except as noted in history and below [facility] Medical History Neck pain ?M54.2 - Cervicalgia (ICD-10) Upper back pain ?M54.9 - Dorsalgia, unspecified (ICD-10) Low back pain ?M54.50 - Low back pain, unspecified (ICD-10) Osteoarthritis ?M19.90 - Unspecified osteoarthritis, unspecified site (ICD-10) H/O malignant neoplasm of breast ?Z85.3 - Personal history of malignant neoplasm of breast (ICD-10) Hearing deficit ?H91.90 - Unspecified hearing loss, unspecified ear (ICD-10) Former smoker ?Z87.891 - Personal history of nicotine dependence (ICD-10) Hypertension ?I10 - Essential (primary) hypertension (ICD-10) Atrial fibrillation ?I48.91 - Unspecified atrial fibrillation (ICD-10) Cataract ?H26.9 - Unspecified cataract (ICD-10) Surgical History H/O total hip arthroplasty ?Z96.649 - Presence of unspecified artificial hip joint (ICD-10) H/O cardiac catheterization ?Z98.890 - Other specified postprocedural states (ICD-10) History of cholecystectomy ?Z90.49 - Acquired absence of other specified parts of digestive tract (ICD- 10) H/O: hysterectomy ?Z90.710 - Acquired absence of both cervix and uterus (ICD-10) H/O foot surgery ?Z98.890 - Other specified postprocedural states (ICD-10) H/O eye surgery ?Z98.890 - Other specified postprocedural states (ICD-10) H/O shoulder surgery ?Z98.890 - Other specified postprocedural states (ICD-10) H/O breast surgery ?Z98.890 - Other specified postprocedural states (ICD-10) Social History Smoking status: Never smoker Meds Home Medications and Allergies Home Medications Medication Instructions Recorded Confirmed Type apixaban 5 mg tablet (Eliquis) 5 mg PO BID 10/28/22 05/14/23 History atenolol 50 mg tablet 75 mg PO DAILY 10/28/22 05/14/23 History baclofen 10 mg tablet 20 mg PO TID 10/28/22 05/14/23 History hydrochlorothiazide 25 mg tablet 25 mg PO DAILY 10/28/22 05/14/23 History lisinopril 20 mg tablet 20 mg PO DAILY 10/28/22 05/14/23 History neuveria vitamin DAILY 10/28/22 History omeprazole 20 mg tablet,delayed 20 mg PO DAILY 10/28/22 05/14/23 History release potassium 10 mg PO DAILY 10/28/22 05/14/23 History temazepam 30 mg capsule 30 mg PO QPM 10/28/22 05/14/23 History trospium 20 mg tablet 20 mg PO Q12H 04/02/23 05/14/23 History methylprednisolone 4 mg tablets in See Rx Instructions .Route 05/14/23 Rx a dose pack (Medrol (Ryan)) .COMPLEX #21 ea orphenadrine citrate 100 mg 100 mg PO DAILY PRN muscle spasm 05/16/23 Rx tablet,extended release #14 tabs Allergies Allergy/AdvReac Type Severity Reaction Status Date / Time acetaminophen [From Vicodin] Allergy Severe Verified 05/16/23 05:37 hydrocodone [From Vicodin] Allergy Severe Verified 05/16/23 05:37 codeine Allergy Unknown Verified 05/16/23 05:37 levofloxacin [From Levaquin] Allergy Unknown Verified 05/16/23 05:37 morphine Allergy Unknown Verified 05/16/23 05:37 Penicillins Allergy Unknown Verified 05/16/23 05:37 tramadol Allergy Unknown Verified 05/16/23 05:37 Exam Narrative Exam Narrative: Psych-alert and oriented x 3.? Attentive and appropriate, constitutionally normal, displays normal mood and affect per situation.? There are no obvious deficits in memory, reasoning, or intellect.? Skin-no obvious rashes, bruising, or erythema noted to the patient's area of pain. Extremities-upper extremities are warm with minimal edema and palpable pulses. Cervical- tenderness to palpation noted in the cervical spine and paraspinal musculature.?Multiple trigger points expressed on palpation. Pain is elicited with extension, and lateral rotation of the cervical spine.? Range of motion is slightly diminished due to pain. Facet loading maneuvers are positive bilaterally.? Coordination remains intact.? Gait remains non-antalgic. Assessment and Plan Assessment and Plan (1) Muscle spasm: (2) Cervical spondylosis: (3) Myofascial pain syndrome, cervical: Plan 77yof who presents for assessment. failed conservative measures, as noted. imaging reviewed, as noted. given symptoms and trigger points expressed on palpation, prudent to attempt paracervical trigger point injections. given her imaging, it is prudent to attempt diagnostic bilateral c4-5, c5-6 medial branch blocks under fluoroscopic guidance with intention of proceeding to radiofrequency ablation. she is in agreement. meds reviewed, no changes. follow up after procedure. Procedure: Bilateral trigger point injections, trapezius, sternocleidomastoid, splenis capitis Medications: Bupivacaine 0.25% 4cc, kenalog 40mg I explained the details of the procedure to the patient including the risks, benefits, and alternatives.? We had an informed discussion.? The patient verbalized understanding and signed the consent form.? All questions were answered appropriately.? A time-out was performed.? After obtaining a comfortable seated position, the skin overlying the paracervical region was cleaned with alcohol x3.? The needle was inserted in a sterile manner towards the palpated trigger points.. The contents of the syringe were gently injected without any resistance into the joint space after negative aspiration for blood or other bodily fluids.? The needle was removed and pressure was applied at the injection site to decrease the incidence of ecchymosis and hematoma formation.? A sterile bandage was applied.
== END 2023-05-18 13:40 | disposition home or self-care (01) ==
PROVIDERS: PCP Family Medicine; Visit Provider Anesthesiology
DX: M62.838 Other muscle spasm (principal); M47.812 Spondylosis without myelopathy or radiculopathy, cervical region; M79.18 Myalgia, other site
CPT/HCPCS: 20553

== ENCOUNTER 2023-05-25 06:46 | Day surgery (SDC) | payer MEDICARE, SELFPAY ==
--- OUTSIDE RECORDS SUMMARY | 2023-05-25 06:50 | XMS_ITS | CCD ---
Author Name Unknown Address [address] [place] [address] Organization [facility] Care Team Providers Care Forest Patrolman Name Role Phone PHYSICIAN, DEFAULT Unavailable Unavailable PHYSICIAN, DEFAULT Unavailable Unavailable Elliot Starks MD Primary Care Provider DR ELLIOT STARKS Primary Care Unavailable ANETA EDUARDO Admitting Unavailable ANETA EDUARDO Attending Unavailable ANETA EDUARDO Consulting Unavailable RAUDEL, DR ELLIOT Nayak Admitting Unavailable RAUDEL, DR ELLIOT Nayak Attending Unavailable RAUDEL, DR ELLIOT Nayak Primary Care Unavailable RAUDEL, DR ELLIOT Nayak Consulting Unavailable RAUDEL, DR ELLIOT Nayak Primary Care Unavailable PAY, DR MANN Consulting Unavailable PAY, DR MANN Admitting Unavailable PAY, DR MANN Attending Unavailable BRODERICK, LUANA Consulting Unavailable JOAQUÍN ATKINS Consulting Unavailable Elliot Starks Unavailable Elliot Starks MD Primary Care Provider [phone] MD Elliot Starks Attending Provider Elliot Starks Admitting Unavailable Elliot Starks Attending Unavailable ELLIOT STARKS Primary Care Physician Alfreda Miller Attending Unavailable ELLIOT STARKS Referring Unavailable Alfreda Miller Attending Unavailable Elliot Starks MD Primary Care Provider Melchor Rivera Admitting Unavail able Melchor Rivera Attending Unavail able Elliot Starks Primary Care Unavailable Ricci Perez Consulting Unavailable SELF, SELF Referring Unavailable MIKO OHARA Attending Unavailable ELLIOT STARKS Primary Care Unavailable MIKO OHARA Attending Unavailable MAYDA, MIKO Referring Unavailable ELLIOT STARKS Primary Care Unavailable MIKO OHARA Attending Unavailable MIKO OHARA Referring Unavailable ELLIOT STARKS Primary Care Unavailable Allergies Allergy Classification Reported Allergen(s) Allergy Type Date of Onset Reaction(s) Facility (3 sources) Acetaminophen / HYDROcodone Drug Allergy 03-19-20 17 Unknown [facility] (16 sources) Baclofen; 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: [baclofen] Drug Allergy 03-19-20 17 Unknown [facility] (7 sources) Codeine; 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: [codeine] Drug Allergy 08-09-19 09 Unknown [facility] (4 sources) levoFLOXacin; 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: [levofloxacin] Drug Allergy 03-19-20 17 Unknown [facility] (19 sources) Morphine; 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: [morphine] Drug Allergy 08-09-19 09 [facility] (5 sources) oxyCODONE Drug Allergy 12-03-19 16 [facility] (2 sources) Penicillins Drug Allergy 12-03-19 16 [facility] (1 source) Baclofen Drug Allergy [facility] (1 source) Codeine Drug Allergy [facility] (14 sources) levoFLOXacin; 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: [Levaquin] Drug Allergy Unknown [facility] (1 source) Morphine Drug Allergy 05-04-18 94 [facility] (1 source) oxyCODONE Drug Allergy 05-04-19 05 [facility] (1 source) Penicillins Drug allergy (disorder) 05-04-18 93 [facility] (3 sources) traMADol; 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: [Ultram] Drug Allergy [facility] (11 sources) Codeine Drug Allergy Unknown [facility] Other (14 sources) Penicillin; 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: [penicillin] Drug Allergy Unknown [facility] (15 sources) traMADol; 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: [tramadol] Drug Allergy 05-14-19 24 Unknown [facility] (12 sources) zolpidem; 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: [zolpidem] Drug Allergy Unknown [facility] (1 source) Penicillins Drug Allergy 12-03-19 16 [facility] (1 source) Morphine; 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: [Morphine Sulfate] Drug Allergy [facility] (1 source) zolpidem; 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: [Ambien] Drug Allergy [facility] (1 source) Non-steroidal anti-inflammatory agent Drug allergy 02-02-20 13 Unknown [facility] Other (1 source) sulfADIAZINE Drug Allergy Comment:Sulfa [facility] Other (1 source) Ultram *ANALGESICS - OPIOID* Propensity to adverse reactions Unknown [facility] Other (1 source) Vioxx *ANALGESICS - ANTI-INFLAMMATORY * Propensity to adverse reactions Unknown [facility] Other (1 source) Penicillin G Benzathine & Proc Drug allergy Unknown [facility] Other (1 source) Morphine Sulfate (Concentrate) *ANALGESICS - OPIOI Propensity to adverse reactions Unknown [facility] Other (1 source) Allergies Reconciled Propensity to adverse reactions Unknown [facility] Other (1 source) patient allergy list reviewed by nurse or physicia Propensity to adverse reactions 02-02-20 13 Comment:Done [facility] Other (1 source) Vicodin *ANALGESICS - OPIOID* Propensity to adverse reactions Unknown [facility] Other (1 source) calcitonin Drug allergy Unknown [facility] Other (2 sources) Penicillins Propensity to adverse reactions to drug 05-14-19 24 [facility] (1 source) Acetaminophen / HYDROcodone; 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: [Vicodin] Drug Allergy [facility] (1 source) Adhesive Tape; 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: [Tape] Propensity to adverse reactions (disorder) [facility] Rep[facility] Medications Current Medications Medication Drug Class(es) Dates Sig (Normalized) Sig (Original) apixaban 5 mg oral tablet (17 sources) Factor Xa Inhibitor Start: 08-31-2017 Eliquis 5 mg oral tablet Refills(s) 0 Start Date: 02/11/23 Status: Ordered apixaban 2.5 MG tablet Take by mouth every 12 hours. 0 Active Comment on above: Take 5 mg by mouth t wice daily. aspirin 325 mg oral tablet (2 sources) Platelet Aggregation Inhibitor, Nonsteroidal Anti-inflammatory Drug take [...] Jul, Active baclofen 10 mg oral tablet (2 sources) gamma-Aminobutyric Acid-ergic Agonist take 1 tablet by [...] x 1 month, then 2x/week for maintainence, [facility]/pharmacy #[id number], 165, cm, 02/11/23 10:41:00 EDT, Height/Length Dosing, 77.5, kg, 02/11/23 10:41:00 EDT, Weight Dosing Start Date: 02/11/23 Status: Ordered hydroCHLOROthiazide 25 mg oral tablet (14 sources) Thiazide Diuretic Star t: 02-01 take 1 mg by mouth once daily hydrochlorothiazide 25 mg Tab mg tab(s), Oral, Daily, Refills(s) 0 Start Date: 02/11/23 Status: Ordered Iron Chews (1 source) Star t: 02-01 take 1 mg by mouth once daily Iron Chews mg, Oral, Daily, Refills(s) 0 Start Date: 02/11/23 Status: Ordered lisinopril 20 mg oral tablet (17 sources) Angiotensin Converting Enzyme Inhibitor Star t: [...] Daily, # 30 tab(s), Refills(s) 11, Pharmacy: [facility]/pharmacy #[id number], 165, cm, 02/11/23 10:41:00 EDT, Height/Length [...] omeprazole 40 mg delayed release oral capsule (17 sources) Proton Pump Inhibitor Start: 02-11-2023 omeprazole [...] potassium & sodium phosphates 280-160-250 MG Pack (2 sources) potassium & sodi um phosphates 280-160-250 MG [...] Active Start: 08-11-2022 take 1 tablet by [facility] every twelve hours Bactrim DS 800-160 MG 1 tablet Orally Twice a day for 10 day(s) Oct, Active temazepam 30 mg oral capsule (17 sources) Benzodiazepine Start: 02-19-2023 take 1 capsule by mouth at bedtime Temazepam 30 MG 1 capsule Orally at bedtime for 90 days Feb, Active Start: 02-11-2023 temazepam 30 m g Cap Refills(s) 0 Start Date: 02/11/23 Status: Ordered Start: 08-23-[address] [facility] at bedtime Temazepam 30 MG 1 capsule Orally at bedtime for 90 days May, Active take [address] [facility] at bedtime as needed for sleep temazepam 15 MG capsule Take 1 capsule by mouth At bedtime as needed for Sleep. 0 Active triamcinolone acetonide 1 mg/ml topical cream (2 sources) Corticosteroid Start: 10-30-2022 Triamcinolone Acetonide 0.1 % 1 application Externally Twice a day for 7 days Oct, Active trospium chloride 20 mg oral tablet (3 sources) Cholinergic Muscarinic Antagonist take 1 tablet by mouth twice daily before mealtime trospium 20 MG tablet Take 1 tablet by mouth 2 times daily (take before meals). 0 Active Trospium Chlorid e Active Completed/Discontinued Medications Medication Drug Class(es) Dates Sig (Normalized) Sig (Original) atenolol 50 mg oral tablet (16 sources) beta-Adrenergic Eli Start: 08-31-2017 atenolol (TENORMIN) [...] Chronic Complication of device; implant or graft (3 sources) Joint pain; 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: [Pain due to internal orthopedic prosthetic devices, implants and grafts, initial encounter] Onset: 05-14-2023 05-14-2023 Episodic E Codes: Natural/environment (1 source) [...] fatigue; 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: [Fatigue] Onset: 06-11-2022 Episodic Osteoarthritis (17 sources) Unspecified osteoarthritis, unspecified site; 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: [Localized, primary osteoarthritis of the pelvic region and thigh] Onset: 06-11-2022 05-06-2023 Chronic Other aftercare (1 source) Other director long term care (current) drug therapy; 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: [OTH SNF CURRENT DRUG THERAPY] Onset: 06-11-2022 Episodic Other aftercare (1 source) Long-term current use of anticoagulant; 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: [halfway (current) use of anticoagulants] Onset: 02-11-2023 Episodic [...] Test Name Value Interpretation Reference Range Facility COBALT AND CHROMIUMon 2023 CHROMIUM,WB 1.1 Normal [facility] Comment on above: Result Comment: Refe rence range: <3.0 Unit: ng/mL PERFORMED BY [employer] COBALT,WB <1.0 Normal [facility] Comment on above: Result Comment: Refe rence range: <3.0 Unit: ng/mL (NOTE) Chromium and cobalt analysis performed by inductively coupled plasma/mass spectrometry (ICP/MS). Reference range is for patients with spqtb-rt-jvgry (MoM) orthopedic implants. The [place] [employer] Hip [employer] Knee [employer], the [place] [employer] Orthopa[employer]geons, and The Hip Society, have published a consensus statement, Risk Stratification Algorithm for Management of Patients with Qngit-ue-Ivxim Hip Arthroplasty. The algorithm is intended as an aid to orthopedic surgeons in the assessment and management of patients with Bjlxz-kx-Jhvcm bearings. The systematic risk stratification includes recommendations for multiple modes of failure and stratifies patient risk groups based on a thorough clinical history, a detailed physical examination, radiographic tests, and laboratory tests including measurement of metal ions (chromium and cobalt). The following stratification applies to chromium or cobalt as individual analytes, not to the combined total. Low Risk Group: <3.0 ng/mL Moderate Risk Group: 3.0 - 10.0 ng/mL High Risk Group: >10.0 ng/mL Metal ion tests are an important adjunct to systemic clinical assessment; however, metal ion levels alone should not be relied on as the sole parameter to determine clinical recommendations for revision surgery. J Bone Joint Surg Am. 2014;96:e4(1-6). This test was developed and its performance characteristics determined by [employer]. It has not been cleared or approved by the Food and Drug Administration. COBALT AND CHROMIUM,WBon Chromium (Bld) [Mass/Vol] 1.1 [facility] Comment on above: Reference range: <3. 0 Unit: ng/mL PERFORMED BY [employer] Sebastian (Bld) [Mass/Vol] <1.0 [facility] Comment on above: Reference range: <3. 0 Unit: ng/mL (NOTE) Chromium and cobalt analysis performed by inductively coupled plasma/mass spectrometry (ICP/MS). Reference range is for patients with kaspz-ty-mkzqq (MoM) orthopedic implants. The [place] [employer] Hip and Knee Surgeons, the [place] [employer] Orthopaedic Surgeons, and The Hip Society, have published a consensus statement, Risk Stratification Algorithm for Management of Patients with Puflc-hp-Dgihd Hip Arthroplasty. The algorithm is intended as an aid to orthopedic surgeons in the assessment and management of patients with Qtjsl-vp-Rqzqf bearings. The systematic risk stratification includes recommendations for multiple modes of failure and stratifies patient risk groups based on a thorough clinical history, a detailed physical examination, radiographic tests, and laboratory tests including measurement of metal ions (chromium and cobalt). The following stratification applies to chromium or cobalt as individual analytes, not to the combined total. Low Risk Group: <3.0 ng/mL Moderate Risk Group: 3.0 - 10.0 ng/mL High Risk Group: >10.0 ng/mL Metal ion tests are an important adjunct to systemic clinical assessment; however, metal ion levels alone should not be relied on as the sole parameter to determine clinical recommendations for revision surgery. J Bone Joint Surg Am. 2014;96:e4(1-6). This test was developed and its performance characteristics determined by [employer]. It has not been cleared or approved by the Food and Drug Administration. [facility] C REACTIVE PROTEINon 024 CRP [Mass/Vol] 48.4 mg/L High 0-10 [facility] Comment on above: Performed By: #### E SR, CREACT #### Testing performed at [address] [address] CRP [Mass/Vol] 48.4 mg/L High 0 - 10 MG/L [facility] Interpretation and review of laboratory results Abnormal [facility] ESRon 05-14-2023 ESR (Bld) [Velocity] 31 mm/h High 0-30 [facility] Comment on above: Performed By: #### E SR, CREACT #### Testing performed at [address] [address] SEDIMENTATION RATE, AUTOMATE Don 05-14-2023 ESR (Bld) [Velocity] 31 mm/h High [facility] Interpretation and review of laboratory results Abnormal [facility] Ambulatory Visit Summaryon 1 Ambulatory Visit Summary BETTIE BURNS :1945 Visit Date:02/11/2023 Ambulatory Visit Instructions Your Diagnosis Frequent UTI Microscopic hematuria Mixed incontinence Anticoagulated History of breast cancer Former smoker Tests Performed Urnls Dip Stick Auto w/o Microscopy POC 93600 Your Care Team Attending Physician - Paul [...] VILLEGAS, Alfreda Palacios Where: [facility] Lab Reportson 02-11-2023 Lab Reports [id number] 1#1.00TIFF [facility] Patient Educationon 02-12-20 Patient Education Obstetrics [...] provider. Document Revised: 08/29/2021 Document Reviewed: 08/29/2021 [employer] Patient Education ? 2022 Opeepl. Normal [facility] Physician Referralon 023 Physician Referral [id number] #1.00TIFF Normal [facility] Urinalysis - DIPSTICKon 10-03 Appearance (U) cloudy [employer] Other Bilirubin Ql (U) [email or web address] ast RECCY Other Color (U) yellow [facility] Other Glucose Ql (U) Negative [employer] Other Hemoglobin Ql (U) [employer] oast RECCY Other Ketones Ql (U) Negative [employer] Other Leukocyte esterase Test strip Ql (U) moderate [facility] Other Nitrite Ql (U) Positive [employer] Other pH (U) 5 [pH] [facility] Other Protein Ql (U) Negative [employer] Other Specific gravity (U) [Rel density] 1.010 [facility] Other Urobilinogen (U) [Mass/Vol] off chart [facility] Other Urinalysis - DIPSTICK [facility] Other Urine Cultureon 10-27-2022 Bacteria identified Cx Nom (U) ORGANISM: Escherichia coli (O:ESCCOL) [place] Count >100,000 Aerobic AUBREY Charge (NMIC56) ----- [...] RESISTANT TO ALL B-LACTAM DRUGS. PERFORMED BY: [place] [address] [place] [address] PATHOLOGIST ANIMAL RESCUER JOSE GUADALUPE FERGUSON M.D. Normal [facility] Comment on above: Performed By: #### C UU #### [facility] [address] [id number] [facility] Shane 09-11-2022 CNPN Telephone (HEMTSA) ALMABETTIE Ortiz ([id number]) 1945 F Date Time Provider Department 09/11/22 MATT ADAMS During your visit today, we recorded the following information about you: Matt Adams RN 09/11/2022 9:54 AM Signed Pt called to request yearly Mammogram order I have pended order as previously completed [phone]/: please review and sign if agreeable RICARDO Lopez RN 09/11/2022 11:45 AM Signed Order faxed to [facility] and pt is aware. Matt Adams RN [...] malignant neoplasm of breast [Z12.31] Order(s):AUGUSTINA SCREENING Poppy TIDWELL [[id number]] Order #: [id number] FUTURE Prescriptions as of 09/11/2022 - lisinopril [...] Encounter Status:Closed by MATT ADAMS on 09/11/22 [facility] Urinalysis - DIPSTICKon 02-2 Appearance (U) cloudy [employer] Other Bilirubin Ql (U) Negative [employer] Other Color (U) pale yellow [facility] Other Glucose Ql (U) Negative [employer]360 Other Hemoglobin Ql (U) non hem-trace [facility] [employer] Other Ketones Ql (U) trace [employer] Other Leukocyte esterase Test strip Ql (U) moderate [facility] Other Nitrite Ql (U) Negative [employer] Other pH (U) 5 [pH] [facility] Other Protein Ql (U) trace [employer] Other Specific gravity (U) [Rel density] 1.005 [facility] Other Urobilinogen (U) [Mass/Vol] normal [facility] Other Urinalysis - DIPSTICK [facility] Other CULTURE URINEon 06-11-2022 CULTURE URINE Isolate [...] F Trimethoprim/Sulfame thoxazole <=20 S F Normal [facility] Comment on above: Performed By: #### U RCX #### [facility] [address] [place] [address] Dr. Florencio Narayanan CARDIAC AMBER ADMITon 023 CK [Catalytic activity/Vol] 44 U/L Normal 26-192 [facility] Comment on above: Performed By: #### C LILIAN LOZANO CMADM #### [facility] [address] [place] [address] Dr. Florencio Narayanan CK.MB [Mass/Vol] ng/mL Normal <=3.[address] [facility] Comment on above: Performed By: #### C LILIAN LOZANO CMADM #### [facility] [address] [place] [address] Dr. Florencio Narayanan HSTROP 14.6 pg/mL Normal 4.0-51.3 [facility] Comment on above: Result Comment: CUT- OFF POINTS HAVE BEEN ESTABLISHED BASED ON THE FOURTH UNIVERSAL DEFINITIONS OF MYOCARDIAL INFARCTION. THE UPPER REFERENCE LIMIT (URL) OF TROPONIN, DEFINED THE 99TH PERCENTILE OF cTnI DISTRIBUTION IN A REFERENCE POPULATION, HAS BEEN CONFIRMED THE DECISION THRESHOLD FOR [place] DIAGNOSIS. Performed By: #### C LILIAN LOZANO CMADM #### [facility] [address] [place] [address] Dr. Florencio Narayanan UMER 109 ng/mL Critically high 9-82 [facility] Comment on above: Performed By: #### C LILIAN LOZANO CMADM #### [facility] [address] [place] [address] Dr. Florencio Narayanan CBC AUTO DIFFon 06-09-2022 BASO # 0.1 103/ul Normal 0.0-0.1 [facility] Comment on above: Performed By: #### C BC #### [facility] [address] [place] [address] Dr. Florencio Narayanan Basophils/100 WBC (Bld) 0.4 % Normal 0.2-2.0 [facility] Comment on above: Performed By: #### C BC #### [facility] [address] [place] [address] Dr. Florencio Narayanan EO # 0.0 103/ul Normal 0.0-0.7 [facility] Comment on above: Performed By: #### C BC #### [facility] [address] [place] [address] Dr. Florencio Narayanan Eosinophils/100 WBC (Bld) 0.2 % Critically low 0.9-7.0 [facility] Comment on above: Performed By: #### C BC #### [facility] [address] [place] [address] Dr. Florencio Narayanan Erythrocyte distribution width (RBC) [Ratio] 12.3 % Normal 11.0-15.0 [facility] Comment on above: Performed By: #### C BC #### [facility] [address] [place] [address] Dr. Florencio Narayanan Hematocrit (Bld) [Volume fraction] 38.4 % Normal 36.0-48.0 [facility] Comment on above: Performed By: #### C BC #### [facility] [address] [place] [address] Dr. Florencio Narayanan Hemoglobin (Bld) [Mass/Vol] 12.7 g/dL Normal 12.0-16.0 [facility] Comment on above: Performed By: #### C BC #### [facility] [address] [place] [address] Dr. Florencio Narayanan IG # 0.06 10e3/ul Critically high 0.00-0.03 [facility] Comment on above: Performed By: #### C BC #### [facility] [address] [place] [address] Dr. Florencio Narayanan IG % 0.5 % Normal 0.0-0.5 [facility] Comment on above: Performed By: #### C BC #### [facility] [address] [place] [address] Dr. Florencio Narayanan LYMPH # 1.0 103/ul Critically low 1.2-3.8 [facility] Comment on above: Performed By: #### C BC #### [facility] [address] [place] [address] Dr. Florencio Narayanan Lymphocytes/100 WBC (Bld) 8.4 % Critically low 20.5-60.0 [facility] Comment on above: Performed By: #### C BC #### [facility] [address] [place] [address] Dr. Florencio Narayanan MANUAL DIFF REQ NO Normal [facility] Comment on above: Performed By: #### C BC #### [facility] [address] [place] [address] Dr. Florencio Narayanan MCH (RBC) [Entitic mass] 32.4 pg Normal 26.7-34.0 [facility] Comment on above: Performed By: #### C BC #### [facility] [address] [place] [address] Dr. Florencio Narayanan MCHC (RBC) [Mass/Vol] 33.1 g/dL Normal 29.9-35.2 [facility] Comment on above: Performed By: #### C BC #### [facility] [address] [place] [address] Dr. Florencio Narayanan MCV (RBC) [Entitic vol] 98.0 fL Normal 81.0-99.0 [facility] Comment on above: Performed By: #### C BC #### [facility] [address] [place] [address] Dr. Florencio Narayanan MONO # 1.6 103/ul Critically high 0.3-0.8 [facility] Comment on above: Performed By: #### C BC #### [facility] [address] [place] [address] Dr. Florencio Narayanan Monocytes/100 WBC (Bld) 13.1 % Critically high 1.7-12.0 [facility] Comment on above: Performed By: #### C BC #### [facility] [address] [place] [address] Dr. Florencio Narayanan NEUT # 9.5 103/ul Critically high 1.4-6.5 [facility] Comment on above: Performed By: #### C BC #### [facility] [address] [place] [address] Dr. Florencio Narayanan Neutrophils/100 WBC (Bld) 77.4 % Critically high 43.0-75.0 [facility] Comment on above: Performed By: #### C BC #### [facility] [address] [place] [address] Dr. Florencio Narayanan Platelet mean volume (Bld) [Entitic vol] 9.4 fL Critically low 9.5-13.5 [facility] Comment on above: Performed By: #### C BC #### [facility] [address] [place] [address] Dr. Florencio Narayanan PLT 140 103/ul Critically low 150-450 [facility] Comment on above: Performed By: #### C BC #### [facility] [address] [place] [address] Dr. Florencio Narayanan RBC 3.92 106/ul Critically low 4.20-5.40 [facility] Comment on above: Performed By: #### C BC #### [facility] [address] [place] [address] Dr. Florencio Narayanan WBC 12.2 103/ul Critically high 4.0-11.[address] [facility] Comment on above: Performed By: #### C #### [facility] [address] [place], [place] [address] STROKE HEAD WOon 06-09-19 CT STROKE HEAD WO NONCONTRAST HEAD CT [...] LUANA VILLAFANA Date: 2022-06-09 12:24 Normal [facility]on SARS-CoV-2 (COVID-19) RNA CHRISTOPHER+probe Ql (Unsp spec) Not detected Normal NOT DETECTED [facility] Comment on above: Result Comment: When [...] for this test is supported by the [place] of Health and Human Service's declaration that [...] used). Performed By: #### C VDTB #### [facility] [address] [place] [address] Dr. Florencio HUERTA URINE PROFILEon 3 Bilirubin Ql (U) Negative Normal NEGATIVE [facility] Comment on above: Performed By: #### LIYAH LERO #### [facility] [address] [place] [address] Dr. Florencio Narayanan Clarity (U) CLEAR Normal CLEAR [facility] Comment on above: Performed By: #### Malini PIZANO UMICRO #### [facility] [address] [place] [address] Dr. Florencio Narayanan Color (U) LT. YELLOW Normal YELLOW [facility] Comment on above: Performed By: #### LIYAH LERO #### [facility] [address] [place] [address] Dr. Florencio CONLEY A micrscopic examination will be performed if indicated. Normal [facility] Comment on above: Performed By: #### MARIVEL LEICRO #### [facility] [address] [place] [address] Dr. Florencio Narayanan Glucose Ql (U) Negative Normal NEGATIVE The [facility] Comment on above: Performed By: #### MARIVEL LEICRO #### [facility] [address] [place] [address] Dr. Florencio Narayanan Hemoglobin Ql (U) LARGE Abnormal NEGATIVE The [facility] Comment on above: Performed By: #### MARIVEL LEICRO #### [facility] [address] [place] [address] Dr. Florencio Narayanan Ketones Ql (U) TRACE Abnormal NEGATIVE The [facility] Comment on above: Performed By: #### Malini PIZANO UMICRO #### [facility] [address] [place] [address] Dr. Florencio Narayanan LEUKOCYTES LARGE Abnormal NEGATIVE The [facility] Comment on above: Performed By: #### Malini PIZANO UMICRO #### [facility] [address] [place] [address] Dr. Florencio Narayanan Nitrite Ql (U) Positive Abnormal NEGATIVE The [facility] Comment on above: Performed By: #### LIYAH LERO #### [facility] [address] [place] [address] Dr. Florencio Narayanan pH (U) 5.5 [pH] Normal 5-9 [facility] Comment on above: Performed By: #### LIYAH LERO #### [facility] [address] [place] [address] Dr. Florencio Narayanan SPEC GRAVITY 1.010 Normal 1.005-<=1.025 [facility] Comment on above: Performed By: #### LIYAH LERO #### [facility] [address] [place] [address] Dr. Florencio Narayanan UA PROTEIN TRACE Normal NEGATIVE/ TRACE [facility] Comment on above: Performed By: #### LIYAH LERO #### [facility] [address] [place] [address] Dr. Florencio Narayanan UR MICRO IND INDICATED Normal [facility] Comment on above: Performed By: #### LIYAH LERO #### [facility] [address] [place] [address] Dr. Florencio Narayanan Urobilinogen Qn (U) 0.2 {Zenia'U}/dL Normal 0.2 - 1. 0 [facility] Comment on above: Performed By: #### LIYAH LERO #### [facility] [address] [place] [address] Dr. Florencio Narayanan LIPASEon 06-09-2022 Lipase [Catalytic activity/Vol] 68.0 U/L Critically low 73.0-393.0 [facility] Comment on above: Performed By: #### C MP, LIPA, CMADM #### [facility] [address] [place] [address] Dr. Florencio Narayanan PROF 14(COMP METB)on 023 Albumin [Mass/Vol] 2.5 g/dL Critically low 3.4-5.0 [facility] Comment on above: Performed By: #### C MP, LIPA, CMADM #### [facility] [address] [place] [address] Dr. Florencio Narayanan Albumin/Globulin [Mass ratio] 0.6 {ratio} Normal [facility] Comment on above: Performed By: #### C LILIAN LOZANO CMADM #### [facility] [address] [address] [address] Florencio Narayanan ALP [Catalytic activity/Vol] 150 U/L Critically high 46-116 [facility] Comment on above: Performed By: #### C BLAKE LIPA, CMADM #### [facility] [address] [place] [address] Dr. Florencio Narayanan ALT [Catalytic activity/Vol] 27 U/L Normal 14-59 [facility] Comment on above: Performed By: #### C MAURICIO LOZANOA, CMADM #### [facility] [address] [place] [address] Dr. Florencio Narayanan Anion gap [Moles/Vol] 12.8 mmol/L Normal [facility] Comment on above: Performed By: #### C BLAKE LIPA, CMADM #### [facility] [address] [place] [address] Dr. Florencio Narayanan AST [Catalytic activity/Vol] 31 U/L Normal 15-37 [facility] Comment on above: Performed By: #### C MAURICIO LOZANOA, CMADM #### [facility] [address] [place] [address] Dr. Florencio Narayanan Bilirubin [Mass/Vol] 1.1 mg/dL Critically high 0.2-1.0 [facility] Comment on above: Performed By: #### C BLAKE LIPA, CMADM #### [facility] [address] [place] [address] Dr. Florencio Narayanan Calcium [Mass/Vol] 9.1 mg/dL Normal 8.5-10.1 [facility] Comment on above: Performed By: #### C BALKE LIPA, CMADM #### [facility] [address] [place] [address] Dr. Florencio Narayanan Chloride [Moles/Vol] 95 mmol/L Critically low 98-107 [facility] Comment on above: Performed By: #### C BLAKE LIPA, CMADM #### [facility] [address] [place] [address] Dr. Florencio Narayanan CO2 [Moles/Vol] 29.4 mmol/L Normal 21.0-32.0 [facility] Comment on above: Performed By: #### C MP, LIPA, CMADM #### [facility] [address] [place] [address] Dr. Florencio Narayanan Creatinine [Mass/Vol] 1.34 mg/dL Critically high 0.55-1.02 [facility] Comment on above: Performed By: #### C MP, LIPA, CMADM #### [facility] [address] [place] [address] Dr. Florencio Narayanan EGFR-AF UZBEK 47 mL/min/1.73m2 Critically low >=60 [facility] Comment on above: Performed By: #### C MP, LIPA, CMADM #### [facility] [address] [place] [address] Dr. Florencio Narayanan EGFR-NON AF UZBEK 39 mL/min/1.73m2 Critically low >=60 [facility] Comment on above: Performed By: #### C MP, LIPA, CMADM #### [facility] [address] [place] [address] Dr. Florencio Narayanan Globulin (S) [Mass/Vol] 4.3 g/dL Normal [facility] Comment on above: Performed By: #### C MP, LIPA, CMADM #### [facility] [address] [place] [address] Dr. Florencio Narayanan Glucose [Mass/Vol] 118 mg/dL Critically high 74-106 [facility] Comment on above: Performed By: #### C MP, LIPA, CMADM #### [facility] [address] [place] [address] Dr. Florencio Narayanan Potassium [Moles/Vol] 3.2 mmol/L Critically low 3.5-5.1 [facility] Comment on above: Performed By: #### C MP, LIPA, CMADM #### [facility] [address] [place] [address] Dr. Florencio Narayanan Protein [Mass/Vol] 6.8 g/dL Normal 6.4-8.2 The [facility] Comment on above: Performed By: #### C LILIAN LOZANO CMADM #### [facility] [address] [place] [address] Dr. Florencio Narayanan Sodium [Moles/Vol] 134 mmol/L Critically low 136-145 [facility] Comment on above: Performed By: #### C LILIAN LOZANO CMADM #### [facility] [address] [place] [address] Dr. Florencio Narayanan Urea nitrogen [Mass/Vol] 29.0 mg/dL Critically high 7.0-18.0 [facility] Comment on above: Performed By: #### C LILIAN LOZANO CMADM #### [facility] [address] [place] [address] Dr. Florencio Narayanan Urea nitrogen/Creatinine [Mass ratio] 21.6 mg/mg Normal [facility] Comment on above: Performed By: #### C LILIAN LOZANO CMADM #### [facility] [address] [place] [address] Dr. Florencio Narayanan URINE MICROSCOPIC ONLYon BACTERIA SMALL Abnormal NONE SEEN [facility] Comment on above: Performed By: #### Malini PIZANO UMICRO #### [facility] [address] [place] [address] Dr. Florencio Narayanan Bacteria identified Cx Nom (U) INDICATED Normal [facility] Comment on above: Performed By: #### Malini PIZANO UMICRO #### [facility] [address] [place] [address] Dr. Florencio Narayanan CAST NONE SEEN Normal NONE SEEN [facility] Comment on above: Performed By: #### Malini PIZANO UMICRO #### [facility] [address] [place] [address] Dr. Florencio Narayanan Crystals LM Nom (Urine sed) NONE SEEN Normal NONE SEEN [facility] Comment on above: Performed By: #### Malini PIZANO UMICRO #### [facility] [address] [place] [address] Dr. Florencio Narayanan Epithelial cells LM Ql (Urine sed) FEW Abnormal NONE SEEN /RARE [facility] Comment on above: Performed By: #### ADIEL LE #### [facility] [address] [place] [address] Dr. Florencio Narayanan MUCOUS NONE SEEN Normal NONE SEEN [facility] Comment on above: Performed By: #### ADIEL LE #### [facility] [address] [place] [address] Dr. Florencio Narayanan RBC 2-5 Abnormal 0-2 [facility] Comment on above: Performed By: #### ADIEL LE #### [facility] [address] [place] [address] Dr. Florencio Narayanan WBC 10-20 Abnormal NONE SEEN [facility] Comment on above: Performed By: #### ADIEL LE #### [facility] [address] [place] [address] Dr. Florencio Narayanan XR CHEST 2 Von [...] JOAQUÍN ATKINS Date: 2022-06-09 12:24 Normal [facility] CULTURE URINEon 04-16-2022 CULTURE URINE Isolate [...] Trimethoprim/Sulfame thoxazole >=320 R F Normal [facility] Comment on above: Performed By: #### C BC #### [facility] [address] [place] [address] [address] Florencio Lynn 10-03-2021 CNPN Telephone (HEMTSA) BETTIE BURNS ([id number]) 1945 F Date Time Provider Department 10/03/21 ANDREW CHOI HEMTSEse During your visit today, we recorded the [...] Fully Assessed Reason for Visit: Lab Orders [1328] Primary Visit Diagnosis:Malignant neoplasm of upper-outer quadrant of left breast in female, estrogen receptor positive (HCC) [C50.412, Z17.0] Order(s):CBC + DIFF [SQCBCDIF] Order #: [id number] FUTURE COMP METABOLIC PANEL [SQCMP] Order #: [id number] FUTURE CA 27.29 BLOOD [[id number]] Order #: [id number] FUTURE Prescriptions as of 10/03/2021 - lisinopril [...] Encounter Status:Closed by ANDREW CHOI on 10/03/21 [facility] 09-26-2021 [facility] (MARIA TER[facility]) BETTIE BURNS ([id number]) 1945 F Date Time Provider Department 09/26/21 ELTON DOMINGUEZ During your visit today, we recorded the following information about you: Elton Dominguez RN 09/26/2021 2:36 PM Signed Pt scheduled for diagnostic mamm tomorrow @ [facility] calls to ask if this could be changed to a screening mammogram since the pt is greater than 2 years from diagnosis? RICARDO Jean-Baptiste MD 09/26/2021 5:14 PM Addendum Okay to change to screening mammogram. Order signed. ASIYA Ford RN 09/27/2021 8:12 AM Signed Order faxed to Nori Lema @ [phone]. Elton Dominguez RN Allergies As of Date: [...] for malignant neoplasm of breast [Z12.31] Order(s):[facility] SCREENING W YAW [[id number]] Order #: [id number] FUTURE Prescriptions as of 09/27/2021 - lisinopril [...] Status:Closed by ANDREW CHOI on 09/26/21 Normal [facility] MRI Hip w/o Righton 09-12-19 MRI Hip w/o Right HISTORY: Right groin [...] by Ramon Ambrocio on 09/11/2021 1545 Normal [facility] [employer] Consult Reporton 03-14-[address] [facility] CONSULTATION BETTIE BURNS [address]ET [id number] [id number] OBSV ANABEL WATKINS MD [id number] REFERRING PHYSICIAN: CONSULTING PHYSICIAN: Renetta Almanzar MD DATE OF CONSULTATION: 03/11/2020 REASON: A near syncopal event in a 74-year-old female, with a history of atrial fibrillation, previous cardiac ablation, who was the time of evaluation noted to have a positive test for COVID. HISTORY OF PRESENT ILLNESS: Mrs. Burns is a very pleasant, alert and oriented -ybta-ktg female who was brought into the emergency [...] including quarantine. Many thanks. RENETTA ALMANZAR MD BD/Isidro /[id number] Normal [facility] BASICMETAon 03-11-2020 GFR AA >60 Normal [facility] Comment on above: Result Comment: Afri can [place] GFR Calc Medical judgement is necessary to [...] for drug dosing. Performed By: #### 1 98792, 960070, 714545 ####[facility] [address] [place] [address] Medical Director: Fahad Cast MD GFR/1.73 sq M predicted among non-blacks MDRD (S/P/Bld) [Vol rate/Area] 56 mL/min/1.73m? Normal [facility] Comment on above: Result Comment: Non [...] for drug dosing. Performed By: #### 1 38941, 308980, 607304 ####[facility] [address] [place] [address] Medical Director: Fahad Cast MD Osmolality [Osmolality] 291 mOsm/kg Normal 275-295 [facility] Comment on above: Performed By: #### 1 97131, 938662, 396278 ####[facility] [address] [place] [address] Medical Director: Fahad Cast MD Urea nitrogen/Creatinine [Mass ratio] 24.5 mg/mg Normal [facility] Comment on above: Performed By: #### 1 52135, 651528, 505961 ####[facility] [address] [place] [address] Medical Director: Fahad Cast MD Calcium [Mass/Vol] 9.3 mg/dL Normal 8.5-10.5 [facility] Comment on above: Performed By: #### 1 14542, 075919, 274193 ####[facility] [address] [place] [address] Medical Director: Fahad Cast MD Chloride [Moles/Vol] 108 mmol/L Normal 100-109 [facility] Comment on above: Performed By: #### 1 35687, 612847, 881296 ####[facility] [address] [place] [id number] Medical Director: Fahad Cast MD CO2, venous 28.9 mmol/L Normal 21.0-32.0 [facility] Comment on above: Performed By: #### 1 68148, 636152, 600673 ####[facility] [address] [place] [address] Medical Director: Fahad Cast MD Creatinine [Mass/Vol] 1.0 mg/dL Normal 0.6-1.0 [facility] Comment on above: Performed By: #### 1 75846, 642566, 255793 ####[facility] [address] [place] [address] Medical Director: Fahad Cast MD Glucose [Mass/Vol] 98 mg/dL Normal 72-100 [facility] Comment on above: Result Comment: Sharon puncture should occur prior to sulfasalazine administration due to the potential for falsely depressed results. Venipuncture should occur prior to sulfapyridine administration due to the potential falsely elevated results. Baseline assay values before administration of sulfasalazine and sulfapyridine therapy would not be affected. Performed By: #### 1 15071, 552127, 134130 ####[facility] [address] [place] [address] Medical Director: Fahad Cast MD Potassium [Moles/Vol] 4.2 mmol/L Normal 3.5-5.1 [facility] Comment on above: Performed By: #### 1 07633, 863518, 721710 ####[facility] [address] [place] [address] Medical Director: Fahad Cast MD Sodium [Moles/Vol] 144 mmol/L Normal 135-145 [facility] Comment on above: Performed By: #### 1 41916, 894267, 483851 ####[facility] [address] [place] [address] Medical Director: Fahad Cast MD Urea nitrogen [Mass/Vol] 24 mg/dL High 10-20 [facility] Comment on above: Performed By: #### 1 07414, 318437, 745546 ####[facility] [address] [place] [address] [phone]) [phone] Director: Fahad Cast MD CBCNDon 03-11-2020 Erythrocyte distribution width (RBC) [Ratio] 14.4 % Normal 11.5-14.5 [facility] Comment on above: Performed By: #### 1 31617, 203306, 996493 #### [facility] [address] [place] [address] Dental Director: Fahad Cast MD Hematocrit (Bld) [Volume fraction] 33.9 % Low 36.0-46.0 [facility] Comment on above: Performed By: #### 1 40058, 182978, 186482 #### [facility] [address] [place] [address] Dental Director: Fahad Cast MD Hemoglobin (Bld) [Mass/Vol] 11.2 g/dL Low 12.0-16.0 [facility] Comment on above: Performed By: #### 1 07241, 089686, 737305 #### [facility] [address] [place] [address] Dental Director: Fahad Cast MD MCH (RBC) [Entitic mass] 29.5 pg Normal 27.0-34.0 [facility] Comment on above: Performed By: #### 1 64510, 591798, 639501 #### [facility] [address] [place] [address] Dental Director: Fahad Cast MD MCHC (RBC) [Mass/Vol] 33.0 g/dL Normal 32.0-37.0 [facility] Comment on above: Performed By: #### 1 14610, 856466, 026653 #### [facility] [address] [place] [address] Dental Director: Fahad Cast MD MCV (RBC) [Entitic vol] 89.5 fL Normal 80.0-100.0 [facility] Comment on above: Performed By: #### 1 78042, 326352, 091401 #### [facility] [address] [place] [address] Dental Director: Fahad Cast MD Platelet mean volume (Bld) [Entitic vol] 6.8 fL Low 7.4-10.4 [facility] Comment on above: Performed By: #### 1 27021, 726514, 966821 #### [facility] [address] [place] [address] Dental Director: Fahad Cast MD Platelets (Bld) [#/Vol] 232 x1000 Normal 150-450 [facility] Comment on above: Performed By: #### 1 95476, 047837, 268979 #### [facility] [address] [place] [address] Dental Director: Fahad Cast MD RBC (Bld) [#/Vol] 3.79 x10 Low 4.20-5.40 [facility] Comment on above: Result Comment: Note : RBC morphology is normal unless otherwise stated. Evaluation performed only if differential is requested. Performed By: #### 1 05332, 452208, 894900 #### [facility] [address] [place] [address] Dental Director: Fahad Cast MD WBC (Bld) [#/Vol] 5.8 10*3/uL Normal [facility] Comment on above: Performed By: #### 1 56020, 232648, 867623 #### [facility] [address] [place] [address] Dental Director: Fahad Cast MD WBC (Bld) [#/Vol] 5.8 x10 Normal 4.5-11.0 [facility] Comment on above: Performed By: #### 1 48277, 559788, 256590 #### [facility] [address] [place] [address] Dental Director: Fahad Cast MD D Dimer HSon 03-11-2020 D Dimer HS 821 ng/mL FEU High <=499 [facility] Comment on above: Result Comment: Excl usion of PE and DVT The D Dimer HS assay is reported in ng/ml Fibrinogen Equivalent Units (FEU). Per bakery team member?s instructions for use, a value less than 500ng/ml (FEU) may help to exclude DVT and /or PE in outpatients when the assay is used with a clinical pretest probability assessment. D-Dimer used for DIC Screens Assay results should be used with other information, including the clinical context in forming a diagnosis. Performed By: #### C [id number] ####[facility] [address] [place] [id number] Medical Director: Fahad Cast MD LDHon 03-11-2020 LDH 198 unit/L Normal 84-246 [facility] Comment on above: Performed By: #### 1 35855, 640616, 711123 #### [facility] [address] [place] [address] Dental Director: Fahad Cast MD Progress Note-Physicianon Progress Note-Physician [...] medications. 6) DVT ppx: On Eliquis Normal [facility] Utilization Review Noteon Utilization Review Note ID Consult pending DISCHARGE WRITTEN AND PLANNED. Normal [facility] AUTO DIFFon 03-10-2020 Basophils (Bld) [#/Vol] 0.05 x1000 Normal 0.00-0.20 [facility] Comment on above: Performed By: #### 1 12517, 830027, 8160223 ####[facility] [address] [place] [address] Medical Director: Fahad Cast MD Basos % 0.6 % Normal [facility] Comment on above: Performed By: #### 1 39435, 941634, 7964997 ####[facility] [address] [place] [address] Medical Director: Fahad Cast MD Eos Count 0.15 x1000 Normal 0.00-0.50 [facility] Comment on above: Performed By: #### 1 46908, 294435, 7621384 ####[facility] [address] [place] [id number] Medical Director: Fahad Cast MD Eosinophils/100 WBC (Bld) 1.8 % Normal [facility] Comment on above: Performed By: #### 1 07151, 029023, 7452910 ####[facility] [address] [place] [id number] Medical Director: Fahad Cast MD Lymphocytes (Bld) [#/Vol] 1.05 x1000 Low 1.20-4.80 [facility] Comment on above: Performed By: #### 1 , 339230, 2228687 ####[facility] [address] [place] [address] Medical Director: Fahad Cast MD Lymphocytes/100 WBC (Bld) 12.7 % Normal [facility] Comment on above: Performed By: #### 1 20077, 218453, 5512442 ####[facility] [address] [place] [address] Medical Director: Fahad Cast MD Canóvanas Count 0.70 x1000 Normal 0.10-1.00 [facility] Comment on above: Performed By: #### 1 51571, 202427, 0628752 ####[facility] [address] [place] [address] Medical Director: Fahad Cast MD Monocytes/100 WBC (Bld) 8.4 % Normal [facility] Comment on above: Performed By: #### 1 54291, 908107, 2703819 ####[facility] [address] [place] [address] Medical Director: Fahad Cast MD Neutrophils (Bld) [#/Vol] 6.32 x1000 Normal 1.40-8.80 [facility] Comment on above: Performed By: #### 1 82891, 578958, [id number] ####[facility] Jntmhkec89061 [place] [address] Medical Director: Fahad Cast MD Neutrophils/100 WBC (Bld) 76.4 % Normal [facility] Comment on above: Performed By: #### 1 35120, 276267, [id number] ####[facility] Frmfdxkd38311 [place] [address] Medical Director: Fahad Cast MD COMPMETAon 03-10-2020 Albumin [Mass/Vol] 3.4 g/dL Normal 3.4-5.0 [facility] Comment on above: Performed By: #### 1 69918, 919714, [id number] ####[facility] Nxgzxked79067 [place] [address] Medical Director: Fahad Cast MD Albumin/Globulin [Mass ratio] 0.8 {ratio} Normal [facility] Comment on above: Performed By: #### 1 26861, 700195, 5068872 ####[facility] Vmbuigyp47892 [place] [address] Medical Director: Fahad Cast MD Alk Phos 71 unit/L Normal 45-117 [facility] Comment on above: Performed By: #### 1 65718, 722952, 0909933 ####[facility] Gqcsopou44263 [place], [place] [id number]) [phone] Director: Fahad Cast MD Bilirubin [Mass/Vol] 0.37 mg/dL Normal 0.20-1.00 [facility] Comment on above: Result Comment: Use of this assay is not recommended for patients undergoing treatment with eltrombopag due to the potential for falsely elevated results. Performed By: #### 1 32382, 932167, [id number] ####[facility] [address] [place] [address] Medical Director: Fahad Cast MD Calcium [Mass/Vol] 9.4 mg/dL Normal 8.5-10.5 [facility] Comment on above: Performed By: #### 1 40649, 807341, 9646179 ####[facility] [address] [place] [address] Medical Director: Fahad Cast MD Chloride [Moles/Vol] 108 mmol/L Normal 100-109 [facility] Comment on above: Performed By: #### 1 99163, 663774, 6357341 ####[facility] [address] [place] [address] [facility] Director: Fahad Cast MD CO2, venous 28.2 mmol/L Normal 21.0-32.0 [facility] Comment on above: Performed By: #### 1 93114, 448289, 4924898 ####[facility] [address] [place] [address] Medical Director: Fahad Cast MD Creatinine [Mass/Vol] 1.2 mg/dL High 0.6-1.0 [facility] Comment on above: Performed By: #### 1 19312, 695831, 0082645 ####[facility] [address] [place] [address] Medical Director: Fahad Cast MD GFR AA 53 Normal [facility] Comment on above: Result Comment: Afri can Senegalese GFR Calc Medical judgement is necessary to [...] for drug dosing. Performed By: #### 1 70703, 985073, 1359762 ####[facility] Sfuygcfi77316 [place] [address] Medical Director: Fahad Cast MD GFR/1.73 sq M predicted among non-blacks MDRD (S/P/Bld) [Vol rate/Area] 44 mL/min/1.73m? Normal [facility] Comment on above: Result Comment: Non [...] for drug dosing. Performed By: #### 1 86520, 462872, 4065386 ####[facility] Salpczcy37756 [place] [address] Medical Director: Fahad Cast MD Globulin (S) [Mass/Vol] 4.0 g/dL [facility] Comment on above: Performed By: #### 1 64740, 044152, 7477134 ####[facility] Iriamjrs48946 [place] [address] Medical Director: Fahad Cast MD Glucose [Mass/Vol] 143 mg/dL High 72-100 [facility] Comment on above: Result Comment: Sharon puncture should occur prior to sulfasalazine administration due to the potential for falsely depressed results. Venipuncture should occur prior to sulfapyridine administration due to the potential falsely elevated results. Baseline assay values before administration of sulfasalazine and sulfapyridine therapy would not be affected. Performed By: #### 1 13197, 773261, 1810198 ####[facility] Agfaajdh25403 [place], [place] [address]) [phone] Director: Fahad Cast MD GOT 18 unit/L Normal 15-37 [facility] Comment on above: Result Comment: Sharon puncture should occur prior to sulfasalazine and/or sulfapyridine administration due to the potential for falsely depressed results. Baseline assay values before administration of sulfasalazine and sulfapyridine therapy would not be affected. Performed By: #### 1 60809, 303380, 5374594 ####[facility] Dcjscqup74117 [place], [place] [address]) [phone] Director: Fahad Cast MD GPT 19 unit/L Normal 13-56 [facility] Comment on above: Result Comment: Sharon puncture should occur prior to sulfasalazine and/or sulfapyridine administration due to the potential for falsely depressed results. Baseline assay values before administration of sulfasalazine and sulfapyridine therapy would not be affected. Performed By: #### 1 44490, 769324, 1289729 ####[facility] Cgzsgkqe28469 [place], [place] [id number]) [phone] Director: Fahad Cast MD Osmolality [Osmolality] 293 mOsm/kg Normal 275-295 [facility] Comment on above: Performed By: #### 1 , 672838, 2905648 ####[facility] Zscjgtfl04164 [place], [place] [address]) [phone] Director: Fahad Cast MD Potassium [Moles/Vol] 4.0 mmol/L Normal 3.5-5.1 [facility] Comment on above: Performed By: #### 1 28451, 856637, 4067979 ####[facility] Vfxxrtgo79168 [place] [address] Medical Director: Fahad Cast MD Protein [Mass/Vol] 7.4 g/dL Normal 6.0-8.5 [facility] Comment on above: Performed By: #### 1 03946, 587621, 2280799 ####[facility] Eixrjatf11104 [place], [place] [address]) [phone] Director: Fahad Cast MD Sodium [Moles/Vol] 142 mmol/L Normal 135-145 [facility] Comment on above: Performed By: #### 1 27023, 128854, 8120659 ####[facility] Fmyspjqi73641 [place] [address] Medical Director: Fahad Cast MD Urea nitrogen [Mass/Vol] 32 mg/dL High 10-20 [facility] Comment on above: Performed By: #### 1 05366, 322275, 5340542 ####[facility] Llwroirr86913 [place] [address] Medical Director: Fahad Cast MD Urea nitrogen/Creatinine [Mass ratio] 26.7 mg/mg Normal [facility] Comment on above: Performed By: #### 1 01755, 231185, 9009255 ####[facility] Qmaojqbb19344 [place], [place] [address]) [phone] Director: Fahad Cast MD COVID-19 by PCR SWEDon 03-10 COVID-19 by PCR SWED Positive Abnormal [facility] Comment on above: Result Comment: CALL DEANNA SEPULVEDA NG 03/10/2020 18:23:22 EST BY SHF; RBR Performed By: #### C [id number] ####[facility] Pzblnglt27068 [place], [place] [address]) [phone] Director: Fahad Cast MD CRP QUANTon 03-10-2020 C-Reactive Protein, Quantitative 0.8 mg/dL High 0.0-0.3 [facility] Comment on above: Performed By: #### 1 52323, [id number], CD:[id number], [id number] #### [facility] Services [address] [place] [address] Dental Director: aFhad Cast MD CT ABD PELVIS W IV [...] by: Oni Liu MD 03/10/2020 3:50 PM PACKAGING LINE OPERATOR Technologist: EVANGELIST,LIEN Dictated By: ONI LIU MD Signed By: ONI LIU MD Signed Out: 03/10/20 16:50:49 Normal [facility] D Dimer HSon 03-10-2020 D Dimer HS 264 ng/mL FEU Normal <=499 [facility] Comment on above: Result Comment: Excl usion of PE and DVT The D Dimer HS assay is reported in ng/ml Fibrinogen Equivalent Units (FEU). Per bakery team member?s instructions for use, a value less than 500ng/ml (FEU) may help to exclude DVT and /or PE in outpatients when the assay is used with a clinical pretest probability assessment. D-Dimer used for DIC Screens Assay results should be used with other information, including the clinical context in forming a diagnosis. Performed By: #### 1 72338, [id number], CD:[id number], [id number] #### [facility] Services [address] [place], [place] [address] Dental Director: Fahad Cast MD ED Physician Reporton 2019 [...] Line Saline Flush: 3 mL, IV Push, [id number] Documented Medications Documented Eliquis 5 mg oral [...] Interp, Sinus rhythm with first-degree AV block, MO interval 256, QT/QTc/433, incomplete right bundle branch [...] /100WBC NA Lymph % 12.7 % NA [place] % 8.4 % NA Neutrophil % 76.4 % NA Eosin % 1.8 % NA Basos % 0.6 % NA Lymph Count 1.05 x1000 LOW [place] Count 0.70 x1000 NORMAL Neutrophil Count (ANC) [...] by: Monae Hernandez MD 03/10/2020 1:58 PM [facility] Signed By: MONAE HERNANDEZ MD CT ABD [...] by: Oni Liu MD 03/10/2020 3:50 PM PACKAGING LINE OPERATOR Signed By: ONI LIU MD . Notes: [...] Course: improving. Impression and Plan Diagnosis Syncope (QUR01-QN R55, Working, Medical) Plan Condition: Stable. Disposition: Place in Observation Telemetry Unit, JERRICA RUST MD. Counseled: Patient, Regarding diagnosis, Regarding diagnostic results, Regarding treatment plan, Patient indicated understanding of instructions. Notes: IAracely, am scribing for and in the presence of Gladys Hilario DO. Scribe Signature: Fatemeh Novak, 03/10/2020 14:53 , I personally performed the services described in the documentation, reviewed and edited the documentation which was dictated to the scribe in my presence, and it accurately records my words and actions.. Normal [facility] ED Pre-Arrival Formon 2019 ED Pre-Arrival Form Pre-Arrival Summary Name: STR, Current Date: 03/10/2020 13:52:19 EST Gender: Date of : Age: Pre-Arrival Type: EMS ETA: 03/10/2020 14:15:00 EST Primary Care Physician: Presenting Problem: Pre-Arrival User: Neil Vázquez RN Referring Source: Location: 1 [facility] Emergency Department [address] [place] [address] ____ Notes: Vital Signs: Doctor Call Back: DNR Status: Miscellaneous Issues: Normal [facility] ED Progress Noteon 0 ED Progress Note report not put in by previous rn pt here for syncopal episode after diarrhea episode pt has hx of afib. pt covid+ report called to neil rn will come get pt Normal [facility] FERRITINon 03-10-2020 Ferritin [Mass/Vol] 32 ng/mL Normal 8-252 [facility] Comment on above: Performed By: #### 1 83475, [id number], CD:[id number], [id number] #### [facility] Services [address] [place] [address] Dental Director: Fahad Cast MD HEMOon 03-10-2020 DIFF? No Normal [facility] Comment on above: Performed By: #### 1 14212, 900086, 1071764 ####[facility] Ajavdavh97614 [place] [address] Medical Director: Fahad Cast MD Erythrocyte distribution width (RBC) [Ratio] 14.5 % Normal 11.5-14.5 [facility] Comment on above: Performed By: #### 1 92164, 617399, 5475272 ####[facility] Xqlqjfvw14985 [place] [address] Medical Director: Fahad Cast MD Hematocrit (Bld) [Volume fraction] 35.8 % Low 36.0-46.0 [facility] Comment on above: Performed By: #### 1 27131, 737236, 1887456 ####[facility] Fmnvklct68962 [place], [place] [address]) [phone] Director: Fahad Cast MD Hemoglobin (Bld) [Mass/Vol] 11.7 g/dL Low 12.0-16.0 [facility] Comment on above: Performed By: #### 1 38822, 415610, 9120411 ####[facility] [address] [place] [id number]) [phone] Director: Fahad Cast MD MCH (RBC) [Entitic mass] 29.4 pg Normal 27.0-34.0 [facility] Comment on above: Performed By: #### 1 44242, 932440, 0144053 ####[facility] [address] [place], [place] [address]) [phone] Director: Fahad Cast MD MCHC (RBC) [Mass/Vol] 32.7 g/dL Normal 32.0-37.0 [facility] Comment on above: Performed By: #### 1 45106, 141495, 2133397 ####[facility] [address]y80[address] [place] [address] Medical Director: Fahad Cast MD MCV (RBC) [Entitic vol] 89.8 fL Normal 80.0-100.0 [facility] Comment on above: Performed By: #### 1 63026, 355956, 3552804 ####[facility] [address] [place], [place] [address]) [phone] Director: Fahad Cast MD Nucleated RBC (Bld) [#/Vol] 0 /100WBC Normal [facility] Comment on above: Performed By: #### 1 44711, 716476, 3917825 ####[facility] [address] [place] [id number]) [phone] Director: Fahad Cast MD Platelet mean volume (Bld) [Entitic vol] 6.7 fL Low 7.4-10.4 [facility] Comment on above: Performed By: #### 1 69733, 806902, 1716554 ####[facility] Nxbsvxfz87556 [place] [address] Medical Director: Fahad Cast MD Platelets (Bld) [#/Vol] 252 x1000 Normal 150-450 [facility] Comment on above: Performed By: #### 1 46485, 197470, 6159644 ####[facility] Uguuojdu86040 [place] [address] Medical Director: Fahad Cast MD RBC (Bld) [#/Vol] 3.99 x10 Low 4.20-5.40 [facility] Comment on above: Result Comment: Note : RBC morphology is normal unless otherwise stated. Evaluation performed only if differential is requested. Performed By: #### 1 89744, 734323, 3288923 ####[facility] Yzbxyyfh03130 [place] [address] Medical Director: Fahad Cast MD WBC (Bld) [#/Vol] 8.3 10*3/uL Normal [facility] Comment on above: Performed By: #### 1 52586, 581679, 7991923 ####[facility] Hfzwzesa46264 [place] [address] [facility] Director: Fahad Cast MD WBC (Bld) [#/Vol] 8.3 x10 Normal 4.5-11.0 [facility] Comment on above: Performed By: #### 1 31203, 985749, 2689595 ####[facility] Wttamkzs81746 [place] [address] Medical Director: Fahad Cast MD History and Physicalon [...] ppx: On Eliquis OT MESA on Normal [facility] LACTATEon 03-10-2020 Lactate [Moles/Vol] 1.8 mmol/L Normal 0.4-2.0 [facility] Comment on above: Performed By: #### 1 24351 #### [facility] Services [address] [place] [address] Dental Director: Fahad Cast MD LIPon 03-10-2020 Lipase [Catalytic activity/Vol] 135 unit/L Normal 73-393 [facility] Comment on above: Performed By: #### 1 28898, 656620, 579441 ####[facility] Bkdfksxj42888 [place] [address] Medical Director: Fahad Cast MD MG LEVELon 03-10-2020 Magnesium [Mass/Vol] 1.9 mg/dL Normal 1.6-2.6 [facility] Comment on above: Performed By: #### 1 54154, 958256, 498294 ####[facility] Krevyhqj87658 [place] [address] Medical Director: Fahad Cast MD PCTon 03-10-2020 Procalcitonin <0.05 Normal [facility] Comment on above: Result Comment: INTE [...] or septic shock. Performed By: #### 1 99643, [id number], :[id number], [id number] #### [facility] Services [address] [place], [place] [address] Dental Director: Fahad Cast MD TROPONINon 03-10-2020 Troponin I.cardiac [Mass/Vol] ng/mL Normal 0.000-0.099 [facility] Comment on above: Result Comment: This test is a quantitative determination of cardiac troponin I. High levels of serum biotin may interfere with this test. Performed By: #### 1 17421, 727739, 225959 ####[facility] Mkiseieu57957 [place] [address] Medical Director: Fahad Cast MD XR CHEST [...] by: Monae Hernandez MD 03/10/2020 1:58 PM PACKAGING LINE OPERATOR Technologist: THANG JAMES Dictated By: MONAE HERNANDEZ MD Signed By: MONAE HERNANDEZ MD Signed Out: 03/10/20 14:58:26 Normal [facility] Vital Signs Date Time Vital Sign Value Performing Clinician Facility 05-14-2023 09:38-0500 Body height 165.1 cm Miko Ohara MD Work Phone: [facility] 05-14-2023 09:38-0500 Body mass index (BMI) [Ratio] 29.12 kg/m2 Miko Ohara MD Work Phone: [facility] 05-14-2023 09:38-0500 Body temperature 98.2 [degF] Miko Ohara MD Work Phone: [facility] 05-14-2023 09:38-0500 Body weight 79.38 kg Miko Ohara MD Work Phone: [facility] 10-30-2022 14:45-0400 Body height 165.1 cm Elliot Starks Other [facility] Other 10-30-2022 14:45-0400 Body mass index (BMI) [Ratio] 28.4 kg/m2 Elliot Starks Other [facility] Other 10-30-2022 14:45-0400 Body weight 77.43 kg Elliot Starks Other [facility] Other 10-30-2022 14:45-0400 Diastolic blood pressure 66 mm[Hg] Elliot Starks Other [facility] Other 10-30-2022 14:45-0400 Systolic blood pressure 123 mm[Hg] Elliot Starks Other [facility] Other 06-04-2022 11:30-0500 Body height 165.1 cm Elliot Starks Other [facility] Other 06-04-2022 11:30-0500 Body mass index (BMI) [Ratio] 28.29 kg/m2 Elliot Starks Other [facility] Other 06-04-2022 11:30-0500 Body weight 77.11 kg Elliot Starks Other [facility] Other 06-04-2022 11:30-0500 Diastolic blood pressure 64 mm[Hg] Elliot Starks Other [facility] Other 06-04-2022 11:30-0500 SaO2% (BldA) [Mass fraction] 99 % Elliot Starks Other [facility] Other 06-04-2022 11:30-0500 Systolic blood pressure 104 mm[Hg] Elliot Starks Other [facility] Other Encounters Encounter Date Encounter Type Care Provider Facility Start: 05-27-2023 ambulatory Alfreda Miller Facility:[facility] Start: 05-14-2023 ambulatory [facility] Start: 05-14-2023 ambulatory [facility] Start: 05-14-2023 End: 05-14-2023 Office outpatient new 30 minutes Miko Ohara MD Work Phone: [facility] Comment on above: Pain in prosthetic j oint, initial encounter (Primary Dx); Primary osteoarthritis of right hip Start: 05-14-2023 End: 05-14-2023 Subsequent hospital visit by physician Miko Ohara MD Work Phone: [facility] Start: 03-30-2023 (Televisit) Televisit Elliot Starks [facility] Start: 03-30-2023 End: 03-30-2023 ambulatory Elliot Starks Other [facility] Other Start: 02-11-2023 End: 02-12-2023 ambulatory Alfreda Miller Facility:[facility] Start: 02-11-2023 End: 02-11-2023 Patient encounter procedure Alfreda LeosLobo Paul [facility] Start: 11-17-2022 End: 11-17-2022 ambulatory Elliot Starks Other [facility] Other Start: 11-17-2022 Telephone encounter Elliot Starks [facility] Start: 11-06-2022 ambulatory Alfreda Paul Facility:[facility] Start: 10-30-2022 End: 10-30-2022 ambulatory Elliot Starks Other [facility] Other Start: 10-30-2022 Office outpatient vi sit 15 minutes Elliot Starks [facility] Start: 10-29-2022 End: 10-29-2022 ambulatory Elliot Starks Other [facility] Other Start: 10-29-2022 Telephone encounter Elliot Starks [facility] Start: 10-27-2022 Nursing evaluation o f patient and report Elliot Starks [facility] Start: 10-27-2022 End: 10-27-2022 ambulatory Elliot Starks [facility] Other Start: 10-27-2022 End: 10-27-2022 Departed Referred MD Elliot Starks Work Phone: [facility] [place] Work Phone: Start: 09-11-2022 Telephone encounter Matt Duron Hematology/Oncology Comment on above: Orders Start: 08-11-2022 End: 08-11-2022 ambulatory Elliot Starks Other [facility] Other Start: 08-11-2022 Nursing evaluation o f patient and report Elliot Starks [facility] Start: 07-17-2022 (Televisit) Televisit Elliot Dela Cruz [facility] Start: 07-17-2022 End: 07-17-2022 ambulatory Elliot Starks Other [facility] Other Start: 06-23-2022 End: 06-23-2022 ambulatory Elliot Starks Other [facility] Other Start: 06-23-2022 Nursing evaluation o f patient and report Elliot Starks [facility] Start: 06-09-2022 End: 06-09-[address] ELLIOT STARKS Facility:[facility] Start: 06-06-2022 End: 06-06-2022 ambulatory Elliot Starks Other [facility] Other Start: 06-06-2022 Telephone encounter Elliot Starks [facility] Start: 06-04-2022 End: 06-04-2022 ambulatory Elliot Starks Other [facility] Other Start: 06-04-2022 Office outpatient vi sit 25 minutes Elliot Starks [facility] Start: 05-21-2022 End: 05-21-2022 ambulatory Elliot Raudel Other [facility] Other Start: 05-21-2022 Telephone encounter Elliot Starks [facility] Start: 04-26-2022 End: 04-26-[address] ELLIOT STARKS Facility:[facility] Start: 04-14-2022 End: 04-14-[address] ELLIOT STARKS Facility: Start: 12-18-2021 End: 12-18-2021 ambulatory [facility] Facility:[facility] Start: 10-03-2021 Telephone encounter Andrew black MD Work Phone: Hematology/Oncology Comment on above: Lab Orders Start: 09-26-2021 Telephone encounter Elton jimenez RN Work Phone: Hematology/Oncology Comment on above: Radiology Mammogram Start: 12-02-2016 End: 12-03-2016 Ambulatory DEFAULT PHYSICIAN Facility:[facility] Procedures Date Procedure Procedure Detail Performing Clinician Start: 05-14-2023 Heavy metal quantiat david each tiffany Ohara MD Work Phone: Start: 09-25-2020 Mammography Elton jimenez RN Work Phone: Start: 10-07-2019 Adult depression scr eening assessment Elton Dominguez RN Work Phone: Start: 01-01-2017 Screening mammography M claude Starks Other Start: 02-01-2013 General examination of patient Elliot Starks Other Appendectomy Alfreda Lue Bilateral cataracts (disorder) Alfreda Lue Cardiac ablation sys tem (physical object) Alfreda Lue Cholecystectomy Alfreda Lue Insertion of hip prosthesis Alfreda Lue Lumpectomy of left breast Gómez Miller Rotator cuff includi ng muscles and tendons (body structure) Alfreda Miller Screening for malign ant neoplasm of breast Elliot Starks Other Total abdominal hysterectomy Alfreda Miller Plan of Treatment Date Care Activity Detail Author Start: 10-09-2023 DIABETES SCREEN DIABETES SCREEN [facility] Start: 05-28-2023 End: 05-28-2023 Patient encounter procedure 05/28/2023 11:00 AM EST Office Visit [facility] [address] [place] [address] Peter Gardiner, [address] [place] [address] [facility] Start: 05-14-2023 End: 05-14-2024 MR Hip - right WO contrast MRI HIP RIGHT WITHOUT CONTRAST Imaging Routine Pain in prosthetic joint, initial encounter Expected: 05/14/2023, Expires: 05/14/2024 [facility] Comment on above: Expected: 05/14/2023 , Expires: 05/14/2024 Start: 01-02-2023 COVID-19 VACCINE ( season) COVID-19 VACCINE ( season) [facility] Start: 01-02-2023 Influenza vaccination INFLUENZA (Sea son Ended) [facility] Start: 10-27-2022 Bacteria identified in Urine by Culture [facility] Start: 05-04-2022 ADVANCE DIRECTIVE DISCUSSION ADVANCE DIRECTIVE DISCUSSION [facility] Start: 05-04-2022 DEPRESSION ASSESSMENT DEPRESSION ASS ESSMENT [facility] Start: 01-02-2022 Influenza vaccination INFLUENZA (Sea son Ended) [facility] Start: 10-07-2021 End: 12-07-2021 Cancer Ag 27-29 [Units/volume] in Serum or Plasma CA 27.29 BLOOD Lab Routine Malignant neoplasm of upper-outer quadrant of left breast in female, estrogen receptor positive (HCC) Expected: 10/07/2021, Expires: 12/07/2021 [facility] Work Phone: Comment on above: Expected: 10/07/2021 , Expires: 12/07/2021 Start: 10-07-2021 End: 12-07-2021 CBC W Auto Differential panel - Blood CBC + DIFF Lab Routine Malignant neoplasm of upper-outer quadrant of left breast in female, estrogen receptor positive (HCC) Expected: 10/07/2021, Expires: 12/07/2021 [facility] Work Phone: Comment on above: Expected: 10/07/2021 , Expires: 12/07/2021 Start: 10-07-2021 End: 12-07-2021 Comprehensive metabolic 2000 panel - Serum or Plasma COMP METABOLIC PANEL Lab Routine Malignant neoplasm of upper-outer quadrant of left breast in female, estrogen receptor positive (HCC) Expected: 10/07/2021, Expires: 12/07/2021 [facility] Work Phone: Comment on above: Expected: 10/07/2021 , Expires: 12/07/2021 Start: 09-25-2021 Mammography MAMMOGRAM [facility] Start: 05-04-2021 ADVANCE DIRECTIVE DISCUSSION ADVANCE DIRECTIVE DISCUSSION [facility] Start: 11-17-2020 COVID-19 VACCINE (3 - Booster for Pfizer series) COVID-19 VACCINE (3 - Booster for Pfizer series) [facility] Start: 10-06-2020 Adult depression screening assessment DEPRESSION SCREENING [facility] Start: 08-15-2020 COVID-19 VACCINE (3 - Booster for Pfizer series) COVID-19 VACCINE (3 - Booster for Pfizer series) [facility] Start: 01-05-2019 PNEUMOCOCCAL: 65+ (2 - PCV) PNEUMOCOCCAL: 65+ (2 - PCV) [facility] Start: 07-07-2012 BONE DENSITY BONE DENSITY [facility] Start: 07-07-1997 SHINGRIX VACCINE (1 of 2) SHINGRIX VACCINE (1 of 2) [facility] Start: 07-07-1997 Zoster vaccine hzv l david for subcutaneous use ZOSTER (SHINGLES) VACCINE (1 of 2) [facility] Start: 07-07-1992 COLOGUARD (FIT-DNA) COLOGUARD (FIT-D NA) [facility] Start: 07-07-1992 Colonoscopy COLONOSCOPY [facility] Start: 07-07-1992 COLORECTAL CANCER SCREENING COLORECTAL CANCER SCREENING [facility] Start: 07-07-[address] COLONOGRAPHY [facility] Start: 07-07-1992 FECAL OCCULT BLOOD FECAL OCCULT BLOO D [facility] Start: 07-07-1992 LIPID SCREEN LIPID SCREEN [facility] Start: 07-07-1992 Screening for malign ant neoplasm of colon COLORECTAL CANCER SCREENING DISCUSSION [facility] Start: 07-07-1992 SIGMOIDOSCOPY SIGMOIDOSCOPY [facility] Start: 1987 Lipid panel LIPID SCREENING [facility] Start: 1987 Screening for malign ant neoplasm of breast MAMMOGRAM SCREENING DISCUSSION [facility] Start: 07-07-1968 Screening for malign ant neoplasm of cervix CERVICAL CANCER SCREENING DISCUSSION [facility] Start: 07-07-1966 Third diphtheria, tetanus and acellular pertussis (DTaP) vaccination TDAP (ADULT) [facility] Start: 07-07-1966 Urine microalbumin profile DTAP,TDAP,TD (1 - Tdap) [facility] Start: 07-07-1965 HEPATITIS C SCREENING HEPATITIS C SC LUCIUSNING [facility] Start: 07-07-1953 PNEUMOCOCCAL: 65+ (1 - PCV) PNEUMOCOCCAL: 65+ (1 - PCV) [facility] Start: 1945 Hepatitis C screening HEPATITI S C VIRUS SCREENING [facility] Start: 1945 Potassium [Moles/volume] in Serum or Plasma POTASSIUM [facility] Start: 1945 Screening for osteoporosis DEXA SCAN DISCUSSION [facility] Start: 1945 Tetanus vaccination TETANUS [facility] End: 10-26-2022 AUGUSTINA SCREENING W YAW AUGUSTINA SCREENING W YAW Radiology Routine Encounter for screening mammogram for malignant neoplasm of breast 1 Occurrences starting 09/26/2021 until 10/26/2022 [facility] Work Phone: Comment on above: 1 Occurrences starti ng 09/26/2021 until 10/26/2022 End: 10-11-2023 AUGUSTINA SCREENING W YAW AUGUSTINA SCREENING W YAW Radiology Routine Encounter for screening mammogram for malignant neoplasm of breast 1 Occurrences starting 09/11/2022 until 10/11/2023 [facility] Work Phone: Comment on above: 1 Occurrences starti ng 09/11/2022 until 10/11/2023 XR Pelvis and Hip - right Views XR HIP WITH PELVIS RIGHT Imaging Routine Primary osteoarthritis of right hip 05/14/2023 9:20 AM [facility] Work Phone: [facility] Immunizations Immunization Date Immunization Notes Care Provider Pablo wheat 02-10-2023 influenza virus vaccine, unspecified formulation Alfreda Lumalini [facility] 02-01-2022 influenza virus vaccine, unspecified formulation Alfreda Lue [facility] 08-13-2021 SARS-CoV-2 mRNA (cdhdxcsacge-bbhk-nosqw se) vaccine Alfreda Lue [facility] 01-29-2021 SARS-CoV-2 (COVID-19 ) mRNA BNT-162b2 vax Alfreda Lue [facility] Comment on above: Result Comment: 2022: [id number] 06-20-2020 COVID-19 vaccine, ag e 12+ yr (PFIZER-BIONTECH - PURPLE TOP) Elton Dominguez RN Work Phone: [facility] 05-28-2020 SARS-CoV-2 (COVID-19 ) mRNA BNT-162b2 vax Alfreda Lue [facility] 05-18-2020 COVID-19 vaccine, ag e 12+ yr (PFIZER-BIONTECH - PURPLE TOP) Elton Dominguez RN Work Phone: [facility] 01-27-2020 influenza virus vaccine, split virus (incl. purified surface antigen) Elliot Starks Other [facility] Other 01-27-2020 influenza virus vaccine, unspecified formulation Alfreda Miller [facility] 01-20-2019 influenza virus vaccine, unspecified formulation Alfreda Lue [facility] 01-20-2019 influenza, high dose seasonal, preservative-free Elton Dominguez RN Work Phone: [facility] 03-09-2018 influenza virus vaccine, unspecified formulation Alfreda Lue [facility] 01-05-2018 influenza virus vaccine, split virus (incl. purified surface antigen) Elliot Starks Other [facility] Other 01-05-2018 influenza virus vaccine, unspecified formulation Alfreda Lue [facility] 01-05-2018 influenza, high dose seasonal, preservative-free Elton Dominguez RN Work Phone: [facility] 01-05-2018 pneumococcal polysaccharide vaccine, 23 valent Elton Dominguez RN Work Phone: [facility] 02-25-2017 influenza virus vaccine, unspecified formulation Alfreda Lue [facility] 02-17-2017 pneumococcal polysaccharide vaccine, 23 valent Alfreda Lue [facility] 02-05-2017 influenza virus vaccine, split virus (incl. purified surface antigen) Elliot Starks Other [facility] Other 02-05-2017 influenza virus vaccine, unspecified formulation Alfreda Lue [facility] 02-05-2017 pneumococcal conjuga te vaccine, 13 valent Alfreda Lue [facility] 02-01-2002 pneumococcal polysaccharide vaccine, 23 valent Elliot Raudel Other [facility] Other Payers Date Payer Category Payer Self-pay 2014 Medicare AETNA MEDICARE A ETNA MEDICARE PPO [id number] 2014-Present [phone] [address] [place] [address] PPO [id number] 2014 Medicare [id number] 1959 Medicare [id number] 1945 Unknown [id number] 93 1947 Unknown [id number] 93 1947 Unknown [id number] 93 1947 Unknown [id number] 27 1947 Unknown [id number] 27 1947 Unknown [id number] 18 1947 Unknown [id number] 83 1947 Unknown [id number] 83 1947 Unknown [id number] 83 Private Health Insurance A[employer] [facility] M [id number] Unknown Unknown [id number] 31 Social History Date Type Detail Facility Start: 12-03-2015 End: 02-11-2023 Tobacco smoking status NHIS Ex-smoker [facility] End: 12-05-1990 History of tobacco use Current smoker [facility] Start: 12-03-2015 End: 05-14-2023 Cigarettes smoked current (pack per day) - Reported 1 [facility] Start: 12-03-2015 End: 05-14-2023 Tobacco use and exposure Smokeless tobacco non-user [facility] Start: 10-08-2020 Alcohol intake Current drinke r of alcohol (finding) [facility] Start: 1945 Sex Assigned At Not on file C [facility] Start: 05-14-2023 Sex Assigned At F [facility] End: 12-05-1990 History of tobacco use Cigarette Smoker [facility] Start: 1945 Sex Assigned At Female F [facility] Tobacco smoking status Never [facility] Start: 05-14-2023 Tobacco smoking stat us NHIS Never smoked tobacco [facility] Functional Status Date Assessment Result Facility 02-11-2023 Functional Status N/A [facility] Clinical Notes 09-26-2021 to 05-14-2023 Divine Boudreaux - 05/14/2023 9:30 AM Joseph Ohara MD - 05/14/2023 9:30 AM EST Note Date & Type Note Facility 05-14-2023 History of Presen t illness Narrative Ortho Nurse - Patient Intake 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 Rivera. 6 month post op starting having pain on the lateral aspect of the hip. Gave her a cortisone shot and then sent her to pain mgnt. Pt does aqua therapy to help ease pain. Pt rates her pain at a 6 today. She states she can feel the implant move and rub on the inside of her body. Has had no imaging or lab work up post operatively. Date: 05/14/2023 9:44 AM Patient: Bettie Burns MR#: [id number] : 1945 Age: 77 y.o. Referring Physician: Self, Self Insurance: Payor: MEDICARE AETNA HMO OR PPO / Plan: MEDICARE AETNA PPO / Product Type: *No Product type* / Chief Complaint Patient presents with Right Hip - Pain Visit Vitals Temp 98.2 F (36.8 C) Ht 1.651 m (5' 5 ) Wt 79.4 kg (175 lb) BMI 29.12 kg/m Pain Recent Labs No results found for: CRP No results found for: SEDRATE No results found for: WBC , WBCCOUNT , WBCFETAL , HGB , HCT , PLATELET , MCV History No past medical history on file. No past surgical history on file. Family History: Her family history is not on file. Social History: Her reports that she has never smoked. She has never used smokeless tobacco. No history on file for alcohol use and drug use. Additional Social History Y N Notes Do you live alone? [] [x] Who lives with you: Do you have children? [] [] How many: Do you currently work? [] [x] What type of work do you do: Do you have stairs in the home? [x] [] How many do you have to climb to enter your home: What services do you currently receive at home? [] [] Name: Do you have transportation to go to outpatient therapy if needed? [x] [] What Equipment do you have at home? [x] [] [x]Walker, [x]Crutches, []Commode Chair, []Shower []Chair, [x]cane, []bracing Are you followed by a pattern chain builder? [x] [] Name: Dr. Waleska Zhu - [facility] Are you followed by pain management? [x] [] Name: Dr. Cedeno - Xenia Wayne @ [facility] Are you followed by any other specialists? [x] [] Name: Oncolgist - Dr. Choi [facility] Urologist - Dr. Christian - [facility] Out[facility] Medications Prior to Visit Medication Sig Dispense Refill apixaban 2.5 MG tablet Take by mouth every 12 hours. Aspirin 325 MG tablet Take 1 tablet by mouth daily. Atenolol 25 MG tablet Take 1 tablet by mouth daily. baclofen 10 MG tablet Take 1 tablet by mouth 3 times daily. hydroCHLOROthiazide 25 MG tablet Take 1 tablet by mouth daily. Lisinopril 5 MG tablet Take 1 tablet by mouth daily. omeprazole [address] Take 1 capsule by mouth daily. potassium & sodium phosphates 280-160-250 MG Pack Take by mouth. temazepam 15 MG capsule Take 1 capsule by mouth At bedtime as needed for Sleep. trospium 20 MG tablet Take 1 tablet by mouth 2 times daily (take before meals). No facility-administered medications prior to visit. Allergies: She is allergic to morphine, oxycodone, penicillins, and tramadol. Y N Are you allergic to any metals? [] [x] If yes, what metals: Review of Systems System Y N Symptoms Constitutional [] [x] Weight Loss [] [x] Weight Gain [] [x] Chronic Fever [] [x] Insomnia Eyes [] [x] Resent Vision Change [x] [] Cataracts [] [x] Glaucoma [] [x] Any Hx of Metal Fragments in the Eye ENT [] [x] Loss of hearing [x] [] Hearing Aids [] [x] Seasonal Allergies [] [x] Dental Issues Cardiovascular [] [x] Chest Pain [] [x] Angina [] [x] Stent [x] [] Hypertension [] [x] Heart Murmur [x] [] Irregular Pulse [] [x] Pacemaker [x] [] Palpitations [] [x] High cholesteral Respiratory [] [x] Wheezing [] [x] Shortness of Breath [] [x] Pneumonia [] [x] Bronchitis [] [x] Sleep Apnea [] [x] COPD [] [x] Date/ LOC of last CXR: Gastrointestinal [] [x] Heartburn [] [x] Indigestion [] [x] Constipation [] [x] Ulcer [] [x] GI Stomach Bleed [] [x] Diarrhea [] [x] Colon Cancer [] [x] Acid Reflux [] [x] Blood in Stools Musculoskeletal [x] [] Arthritis [x] [] Muscle Weakness [x] [] Joint Pain [x] [] Back Pain [] [x] Fibromyalgia [] [x] Bone Infection [] [x] Swelling - Multiple Joints [] [x] Reflex Sympathetic Dystrophy Skin [] [x] Chronic Rash [] [x] Ulcers [] [x] Eczema [] [x] Psoriasis [] [x] Skin Cancer [] [x] Melanoma Neurologic [] [x] Numbness [] [x] Weakness or loss of sensation in arms or legs [] [x] Leg Pain / Sciatica [] [x] Headaches [] [x] Loss of bowel or bladder control Psychiatric [] [x] Anxiety [] [x] Claustrophobia [] [x] Other Psychiatric Problems Hematologic [x] [] Easy Bruising [x] [] Easy Bleeding [] [x] Blood Transfusion Date: Endocrine [] [x] Hypothyroid [] [x] Hyperthyroid [] [x] Hot Flashes [] [x] Hormone Replacement [] [x] Prednisone Use Does pt have dentures? no HPI: Patient is here today for evaluation of her right hip pain. She is a new patient for me. A pleasant 77 y.o. female with a history of progressive decline, physical function and decreased quality of life secondary to the hip pain. History of right PAULA [place] [address] Rivera. She then developed hip bursitis, had a trochanteric injection as well aqua therapy. She states she feels a slippage within the right hip and does not feel she is getting much relief from conservative treatments. The pain is 6 on a 10-point scale. She is here today for evaluation and to determine treatment options. PHYSICAL EXAM: This is an alert, oriented, and age-appropriate female. She is in no distress. Pleasant and cooperative. EXTREMITIES: Lower extremities have no gross deformity. Normal stability. 5/5 motor. Intact sensation. Normal coordination. Skin intact. Right hip demonstrates full and supple rotation, external snapping hip sensations with rotation, palpably bald trochanter with increased tenderness. Contralateral hip has full and supple motion. No pain. No impingement. No instability. Normal neurovascular status in lower extremities bilaterally. IMAGING: Plain film radiographs were reviewed. She has a right cementless total hip arthroplasty in good position and alignment. No changes from immediate films that were available for review. IMPRESSION: Questionable abductor muscle tearing, right side. 2.) History of right PAULA [place] [address] Rivera. PLAN: I have reviewed my findings with the patient. We have gone over the diagnosis, radiographs, physical exam findings and treatment options together. Given clinical evaluation, it is reasonable to suspect abductor muscle tearing. Next step in recommended treatment is metal suppressed MRI of the right hip to evaluate the integrity of the abductor muscles as well as ESR/CRP and Sebastian and Chromium labs today. I will see her back pending completion of MRI. All questions were answered to her satisfaction. I have reviewed the findings of my clinical staff below and agree with their assessment. Vitals: 05/14/23 0938 Temp: 98.2 degrees F (36.8 degrees C) Weight: 79.4 kg (175 lb) Height: 1.651 m (5' 5 ) Pain Recent Labs No results found for: CRP No results found for: SEDRATE No results found for: WBC , WBCCOUNT , WBCFETAL , HGB , HCT , PLATELET , MCV Past Medical History: Diagnosis Date Arrhythmia Arthritis Essential hypertension, benign Past Surgical History: Procedure Laterality Date HIP REPLACEMENT 2021 ABLATION NERVE RADIOFREQUENCY PULSED APPENDECTOMY BREAST LUMPECTOMY FOOT SURGERY HEART CATHETERIZATION MO ENDOMETRIAL CRYOABLATION REMOVAL BILIARY DUCT/GALLBLADDER CALCULI/DEBRIS PERCUTANEOUS W/ IMAGE REMOVAL CATARACT (PEM) ROTATOR CUFF REPAIR History reviewed. No pertinent family history. Social History Socioeconomic History Marital status: Tobacco Use Smoking status: Never Smokeless tobacco: Never Current Outpatient Medications: apixaban 2.5 MG tablet, Take by mouth every 12 hours., Disp: , Rfl: Aspirin 325 MG tablet, Take 1 tablet by mouth daily., Disp: , Rfl: Atenolol 25 MG tablet, Take 1 tablet by mouth daily., Disp: , Rfl: baclofen 10 MG tablet, Take 1 tablet by mouth 3 times daily., Disp: , Rfl: hydroCHLOROthiazide 25 MG tablet, Take 1 tablet by mouth daily., Disp: , Rfl: Lisinopril 5 MG tablet, Take 1 tablet by mouth daily., Disp: , Rfl: omeprazole 10 MG Jamie MARTINEZ, Take 1 capsule by mouth daily., Disp: , Rfl: potassium & sodium phosphates 280-160-250 MG Pack, Take by mouth., Disp: , Rfl: temazepam 15 MG capsule, Take 1 capsule by mouth At bedtime as needed for Sleep., Disp: , Rfl: trospium 20 MG tablet, Take 1 tablet by mouth 2 times daily (take before meals)., Disp: , Rfl: Allergies Allergen Reactions Morphine Oxycodone Penicillins Tramadol documented in this encounter [facility] 03-30-2023 Evaluation note Encounter Date Diagnosis Assessment [...] verbalizes understanding and agrees with tx plan. [facility] Other 10-11-2023 NoteChief Complaint Referral *Frequent UTI [...] states that she was put on a director long term care abx which has helped a lot. Pt [...] a hematuria workup including a scope, at [facility]. Occasional visible blood w/UTI. UA today shows moderate blood. Discussed doing a hematuria workup if the pt would like to. Pt states that she is not worried aboutthis and does not see the need to have t (more content not included)...[facility]Result Comment: Electronically Signed By: Alfreda Miller MD\.br\Date and Time Signed: 02/11/23 12:13EDT\.br\Electronically Co-Signed By: Karlee Ramos.br\Date and Time Co-Signed: 02/11/23 11:16 [id number] Hospital Discharge instructions Patient Education 02/11/2023 11:16:08 [...] provider. Document Revised: 08/29/2021 Document Reviewed: 08/29/2021 Pb Patient Education 2022 [employer] Follow Up Care 11/06/2022 15:31:52 With:Paul VILLEGAS, PERLA Araujo, URO Address: When:Within 3 Month(s) [facility] Jason 07-17-2023 Evaluation note* Encounter Date Diagnosis Assessment Notes Treatment Notes Treatment Clinical Notes Nov, Dysuria (ICD-10 - R30.0) [facility] Other 06-29-2023 Evaluation note* Encounter Date Diagnosis Assessment Notes Treatment Notes Treatment Clinical Notes Oct, Frequent UTI (ICD-10 - N39.0) Pt requests Urology referral. Discussed also getting CT to move along process. Oct, Dyshidrotic eczema (ICD-10 - L30.1) Will treat with steroid cream prn [facility] Other 06-26-2023 Evaluation note* Encounter Date Diagnosis Assessment Notes Treatment Notes Treatment Clinical Notes Oct, Dysuria (ICD-10 - R30.0) [facility] Other 05-11-2023 Miscellaneous Notes* Telephone Encounter - Matt Adams RN - 09/11/2022 11:43 AM EDT Order faxed to [facility] and pt is aware. Matt Adams RN * Telephone Encounter - Matt Adams RN - 09/11/2022 9:51 AM EDT Pt called to request yearly Mammogram order I have pended order as previously completed Pt requests to fax to Nori Lema [phone] BRM/HM: please review and sign if agreeable Matt [facility]* Encounter Date Diagnosis Assessment Notes Treatment Notes Treatment Clinical Notes Aug, Dysuria (ICD-10 - R30.0) [facility] Other 03-16-2023 Evaluation note* Encounter Date Diagnosis [...] N32.81) chronic and improved on present med [facility] Other 02-20-2023 Evaluation note* Encounter Date Diagnosis Assessment Notes Treatment Notes Treatment Clinical Notes Jun, Dysuria (ICD-10 - R30.0) [facility] Other 02-03-2023 Evaluation note* Encounter Date Diagnosis Assessment Notes Treatment Notes Treatment Clinical Notes Jun, OAB (overactive bladder) (ICD-10 - N32.81) [facility] Other 02-01-2023 Evaluation note* Encounter Date Diagnosis Assessment Notes Treatment Notes Treatment Clinical Notes Jun, OAB (overactive bladder) (ICD-10 - N32.81) Patient request to try new medication reviewed side effect profile. Patient declines urology or DOCUMENT DESIGN SPECIALIST referral at this time. Jun, Essential hypertension (ICD-10 - I10) reviewed and updated medications she will follow-up with cardiology in Jun, Hypokalemia (ICD-10 - E87.6) Reviewed and updated medications. Discussed foods that are high in potassium Jun, Right lumbar pain (ICD-10 - M54.50) Follow-up with Dr. Rivera as scheduled in June. She does have limping with her gait. [facility] Other 05-26-2022 Miscellaneous Notes* Telephone Encounter - Andrew Choi MD - 09/26/2021 5:13 PM EDT Okay to change to screening mammogram. Order signed. ASIYA Ford * Telephone Encounter - Elton Dominguez RN - 09/26/2021 2:33 PM EDT Pt scheduled for diagnostic mamm tomorrow @ [facility] calls to ask if this could be changed to a screening mammogram since the pt is greater than 2 years from diagnosis? Elton Dominguez [facility] Future Appointments Appointment Date:05/27/2023 08:45:00 AM Scheduled Provider:Alfreda Miller MD Location:[facility] Appointment Type:URO Office Visit [facility] evaluation note* Diagnosis Encounter for screening mammogram for malignant neoplasm of breast- Primary Other screening mammogram documented in [facility] note* Diagnosis Malignant neoplasm of upper-outer quadrant of left breast in female, estrogen receptor positive (HCC)- Primary documented in [facility] encounter [facility]No [facility] [employer] Other Evaluation note* Diagnosis Encounter for screening mammogram for malignant neoplasm of breast- Primary Other screening mammogram documented in [facility] encounter [facility] noteNo assessment information [facility] Work Phone: Evaluation note* Diagnosis Pain in prosthetic joint, initial encounter- Primary Primary osteoarthritis of right hip Primary localized osteoarthrosis, pelvic region and thigh documented in this encounter [employer] SystemHistory general Narrative - Reported* Type Description Date [...] replacement 12/16/2021 Hospitalization History SEE SURGICAL HX [facility] Other Hospital course Narrative No data available for this section [facility] [place] progress note No data available for this section [facility] Jason reason for referral (narrative)* Diagnostic Procedure Only (Routine) - Pending Review Specialty Diagnoses / Procedures Referred By Juan wren Referred To Contact [facility] Diagnoses Encounter for screening mammogram for malignant neoplasm of breast Procedures AUGUSTINA SCREENING W YAW SCREENING DIGITAL BREAST TOMOSYNTHESIS BI SCREENING MAMMOGRAPHY BI 2-VIEW BREAST INC Andrew Miguel MD [address] [place] [address] [place] [address] [facility] [place] [address] Referral ID Status Reason Start Date Expiration Date Visits Requested Visits Authorized [id number] Pending Review Auto-Generat ed Referral 09/26/2021 10/26/2022 1 1 [facility] for referral (narrative)* Diagnostic Procedure Only (Routine) - Pending Review Specialty Diagnoses / Procedures Referred By Juan wren Referred To Contact [facility] Diagnoses Encounter for screening mammogram for malignant neoplasm of breast Procedures AUGUSTINA SCREENING W YAW SCREENING DIGITAL BREAST TOMOSYNTHESIS BI SCREENING MAMMOGRAPHY BI 2-VIEW BREAST INC Andrew Miguel MD [address] [place] [address] [place] [address] [facility] [address] [place] [address] Referral ID Status Reason Start Date Expiration Date Visits Requested Visits Authorized [id number] Pending Review Auto-Generat ed Referral 09/11/2022 10/11/2023 1 1 [facility] Summary Purpose Family History No [...] Advanced Directives Records Found Reason for Referral Specialty Diagnoses / Procedures Referred By Contac t Referred To Contact Diagnoses Pain in prosthetic joint, initial encounter Procedures MRI HIP RIGHT WITHOUT CONTRAST MO MRI LOWER EXTREM JT, W/O CONTRAST Miko Ohara MD [address] [place] [id number] Referral ID Status Reason Start Date Expiration Date V isits Requested Visits Authorized [id number] New Request 05/14/2023 06/07/2024 1 1 Specialty Diagnoses / Procedures Referred By Contac t Referred To Contact Diagnoses Pain in prosthetic joint, initial encounter Procedures COBALT AND CHROMIUM,WB Miko Ohara MD [address] [place] [id number] Referral ID Status Reason Start Date Expiration Date V isits Requested Visits Authorized [id number] New Request 05/14/2023 06/07/2024 1 1 Specialty Diagnoses / Procedures Referred By Contac t Referred To Contact Diagnoses Primary osteoarthritis of right hip Procedures XR HIP WITH PELVIS RIGHT Miko Ohara MD [address] [place] [id number] Referral ID Status Reason Start Date Expiration Date V isits Requested Visits Authorized [id number] New Request 05/06/2023 05/30/2024 1 1 Reason *FU 11/12 [place] office Diagnosis 1 Frequent UTI (N39.0) Referral Organization [facility] Regino turcios Referring Provider First Name Elliot Referring Provider Last Name Raudel Referring Provider Specialty Family Medi cine Referred Organization [facility] Referred Provider ALFREDA MILLER Referred Address [address] [place],[address] Referred Provider Specialty Urology Referral Priority Routine General Notes Victoria Lisa 11:03:05 AM >received today, notes attached, along with labs and ins, waiting for notes to be locked before faxing Victoria Lisa 11/05/2022 02:44:05 PM >referral faxed Additional Source Comments INFORMATION SOURCE (unrecogn ized section and content) DATE CREATED AUTHOR 10/28/2017 [facility] DATE CREATED AUTHOR AUTHOR'S ORGANIZ ATION 03/21/2020 [facility] DATE CREATED AUTHOR AUTHOR'S ORGANIZ ATION 09/13/2021 [facility] DATE CREATED AUTHOR AUTHOR'S ORGANIZ ATION 06/11/2022 [facility] DATE CREATED AUTHOR AUTHOR'S ORGANIZ ATION 09/13/2022 [facility] DATE CREATED AUTHOR AUTHOR'S ORGANIZ ATION 11/18/2022 [facility] DATE CREATED AUTHOR AUTHOR'S ORGANIZ ATION 02/18/2023 [facility] DATE CREATED AUTHOR AUTHOR'S ORGANIZ ATION 05/20/2023 [facility] DATE CREATED AUTHOR AUTHOR'S ORGANIZ ATION 05/22/2023 [facility] Source Comments (unrecognize d section and content) In the event this informatio n is protected by the Federal Confidentiality of Alcohol and Drug Abuse Patient Records regulations: The Federal rules restrict any use of the information to criminally investigate or prosecute any alcohol or drug abuse patient.[facility] the event this information is protected by the Federal Confidentiality of Alcohol and Drug Abuse Patient Records regulations: The Federal rules restrict any use of the information to criminally investigate or prosecute any alcohol or drug abuse patient.[facility] the event this information is protected by the Federal Confidentiality of Alcohol and Drug Abuse Patient Records regulations: The Federal rules restrict any use of the information to criminally investigate or prosecute any alcohol or drug abuse patient.[facility] Reason for Visit (unrecogniz ed section and content) Reason Comments Radiology Mammogram Reason Comments Lab Orders Reason Comments Orders Specialty Diagnoses / Procedures Referred By Contac t Referred To Contact Diagnoses Primary osteoarthritis of right hip Procedures XR HIP WITH PELVIS RIGHT Miko Ohara MD [address] [place] [address] Referral ID Status Reason Start Date Expiration Date V isits Requested Visits Authorized [id number] New Request 05/06/2023 05/30/2024 1 1 Reason Comments Pain Care Teams (unrecognized sec tion and content) [employer] Relationship Specialty Start Date End Date Elliot Starks MD [address] [place] [address] PCP - General Family Practice 11/26/15 [employer] Relationship Specialty Start Date End Date Elliot Starks MD [address] [place] [address] PCP - General Family Practice 11/26/15 [employer] Relationship Specialty Start Date End Date Elliot Starks MD [address] [place] [address] PCP - General Family Medicine 11/26/15 Team Status: Inactive Member Role Status Dates Elliot Starks MD Attending Provider Active [employer] Relationship Specialty Start Date End Date Elliot Starks MD [address] [facility] [place] [address] PCP - General Family Medicine 05/11/23 [employer] Relationship Specialty Start Date End Date Elliot Starks MD [address] [facility] [place] [address] PCP - General Family Medicine 05/11/23 Goals [...] BE BASED ON THE PRIMARY CLINICAL RECORDS. [employer] [facility]. provides no warranty or guarantee of the accuracy or completeness of information in this document.
[2023-05-25 06:57] VITALS: BP 104/69; PULSE 89; RESP 16; TEMP 35.8; O2SAT 99
[2023-05-25 07:45] VITALS: BP 107/63; PULSE 84; RESP 18; O2SAT 93
--- NOTE | 2023-05-25 07:50 | W.PM.PROCNOT ---
Date of procedure: 05/25/23 Pre-op diagnosis: Cervical spondylosis Post-op diagnosis: same as pre-op Procedure: Procedure: Bilateral C4-5, 5-6 medial branch block Medications: Bupivacaine 0.25% 6cc The patient was seen and examined in the preoperative holding area.? The informed consent was obtained and placed on the chart.? The patient was brought to the medical procedure unit and placed in the prone position.? A timeout was completed verifying correct patient, procedure site, positioning, plan, and special equipment.? Using aseptic technique, the needle was placed at left C4.? Under direct fluoroscopic visualization, a Quincke tip needle was advanced to the midpoint of the waist of the articular pillar at the respective medial branch segment. The above-mentioned injectate was placed in a 1 mL aliquot proceeded by negative aspiration.? The needle was removed.? The procedure was completed at all left C5, 6. The same procedure, at the same levels, was then completed on the right side. Insertion site was covered.? Patient was taken to the postprocedural recovery area and monitored for an appropriate length of time before found suitable for discharge in the accompaniment of a responsible adult. Anesthesia: Local Surgeon: Daisy Liz Pathology: none sent Condition: stable Disposition: no change
[2023-05-25 07:51] VITALS: PULSE 70; RESP 18; O2SAT 94
[2023-05-25] MEDS: BUPIVACAINE HCL 0.25% PF 25 MG/10 ML VIAL 8 ML INJ (07:51)
[2023-05-25 07:52] VITALS: BP 102/52
[2023-05-25] MEDS: LIDOCAINE HCL 2% PF 100 MG/5 ML VIAL 3 ML INJ (07:52)
== END 2023-05-25 07:55 | disposition home or self-care (01) ==
LOC: SURGOUT 06:47
PROVIDERS: PCP Family Medicine; Visit Provider Anesthesiology
DX: M47.812 Spondylosis without myelopathy or radiculopathy, cervical region (principal)
CPT/HCPCS: 64490; 64491; J0665

== ENCOUNTER 2023-06-03 08:19 | Outpatient (OUT) | payer MEDICARE, SELFPAY ==
--- OUTSIDE RECORDS SUMMARY | 2023-06-03 08:23 | XMS_ITS | CCD ---
Author Name Unknown Address [address] [facility] [address] [place] [address] Organization [facility] Care Team Providers Care Weather Anchor Name Role Phone PHYSICIAN, DEFAULT Unavailable Unavailable PHYSICIAN, DEFAULT Unavailable Unavailable Elliot Starks MD Primary Care Provider [phone] ELLIOT STARKS Primary Care Unavailable ANETA EDUARDO Admzeina Unavailable ANETA EDUARDO Attending Unavailable ANETA EDUARDO Consulting Unavailable RAUDEL, DR ELLIOT Nayak Admitting Unavailable RAUDEL, DR ELLIOT Nayak Attending Unavailable RAUDEL, DR ELLIOT Nayak Primary Care Unavailable RAUDEL, DR ELLIOT Nayak Consulting Unavailable RAUDEL, DR ELLIOT Nayak Primary Care Unavailable PAY, DR MANN Consulting Unavailable PAY, DR MANN Admitting Unavailable PAY, DR MANN Attending Unavailable LUANA VILLAFANA Consulting Unavailable JOAQUÍN ATKINS Consulting Unavailable Elliot Starks Unavailable Elliot Starks MD Primary Care Provider [phone] MD Elliot Starks Attending Provider [phone] Elliot Starks Admitting Unavailable Elliot Starks Attending Unavailable ELLIOT STARKS Primary Care Physician [phone] Alfreda Miller Attending Unavailable ELLIOT STARKS Referring Unavailable Alfreda Miller Attending Unavailable Elliot Starks MD Primary Care Provider [phone] Melchor Rivera Admitting Unavail able Melchor Rivera Attending Unavail able Elliot Starks Primary Care Unavailable Ricci Perez Consulting Unavailable Agusto VILLEGAS, Daisy Dietz Attending Unavailable Agusto VILLEGAS, Daisy Dietz Attending Unavailable MIKO OHARA Referring Unavailable ELLIOT STARKS Primary Care Unavailable MIKO OHARA Attending Unavailable ELLIOT STARKS Primary Care Unavailable SELF, SELF Referring Unavailable MIKO OHARA Attending Unavailable ELLIOT STARKS Primary Care Unavailable MIKO OHARA Attending Unavailable MIKO OHARA Referring Unavailable PAULA FITZPATRICK Referring Unavailable ANTELMO RICHEY Attending Unavailable ELLIOT STARKS Primary Care Unavailable MIKO OHARA Referring Unavailable ELLIOT STARKS Primary Care Unavailable MIKO OHARA Attending Unavailable Elliot Starks MD Primary Care Provider [phone] Allergies Allergy Classification Reported Allergen(s) Allergy Type Date of Onset Reaction(s) Facility (4 sources) Acetaminophen / HYDROcodone Drug Allergy 03-19-20 17 Unknown, Itching, Rash [facility] (17 sources) Baclofen; 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: [baclofen] Drug Allergy 03-19-20 17 Unknown, Itching, Rash [facility] (8 sources) Codeine; 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: [codeine] Drug Allergy 08-09-19 09 Unknown, Itching, Rash [facility] (5 sources) levoFLOXacin; 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: [levofloxacin] Drug Allergy 03-19-20 17 Unknown, Itching, Rash [facility] (20 sources) Morphine; 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: [morphine] Drug Allergy 08-09-19 09 [facility] (5 sources) oxyCODONE Drug Allergy 12-03-19 16 [facility] (2 sources) Penicillins Drug Allergy 12-03-19 16 [facility] (1 source) Baclofen Drug Allergy [facility] (1 source) Codeine Drug Allergy [facility] (14 sources) levoFLOXacin; 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: [Levaquin] Drug Allergy Unknown [facility] (1 source) Morphine Drug Allergy 05-04-18 94 [facility] (1 source) oxyCODONE Drug Allergy 05-04-19 05 [facility] (1 source) Penicillins Drug allergy (disorder) 05-04-18 93 [facility] (3 sources) traMADol; 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: [Ultram] Drug Allergy [facility] (11 sources) Codeine Drug Allergy Unknown [email or web address] Other (14 sources) Penicillin; 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: [penicillin] Drug Allergy Unknown [facility] (16 sources) traMADol; 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: [tramadol] Drug Allergy 07-13-19 20 Itching [facility] (13 sources) zolpidem; 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: [zolpidem] Drug Allergy 07-04-19 23 Unknown [facility] (2 sources) Penicillins Drug Allergy 12-03-19 16 Hives, Rash [facility] (1 source) Morphine; 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: [Morphine Sulfate] Drug Allergy [facility] (1 source) zolpidem; 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: [Ambien] Drug Allergy [facility] (1 source) Non-steroidal anti-inflammatory agent Drug allergy 02-02-20 13 Unknown [email or web address] Other (2 sources) sulfADIAZINE Drug Allergy 07-04-19 23 Comment:Sulfa [email or web address] Other (1 source) Ultram *ANALGESICS - OPIOID* Propensity to adverse reactions Unknown [email or web address] Other (1 source) Vioxx *ANALGESICS - ANTI-INFLAMMATORY * Propensity to adverse reactions Unknown [email or web address] Other (1 source) Penicillin G Benzathine & Proc Drug allergy Unknown [email or web address] Other (1 source) Morphine Sulfate (Concentrate) *ANALGESICS - OPIOI Propensity to adverse reactions Unknown [email or web address] Other (1 source) Allergies Reconciled Propensity to adverse reactions Unknown [email or web address] Other (1 source) patient allergy list reviewed by nurse or physicia Propensity to adverse reactions 02-02-20 13 Comment:Done [email or web address] Other (1 source) Vicodin *ANALGESICS - OPIOID* Propensity to adverse reactions Unknown [email or web address] Other (1 source) calcitonin Drug allergy Unknown [email or web address] Other (2 sources) Penicillins Propensity to adverse reactions to drug 05-14-[address] [facility] (1 source) Acetaminophen / HYDROcodone; 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: [Vicodin] Drug Allergy [facility] (1 source) Adhesive Tape; 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: [Tape] Propensity to adverse reactions (disorder) [facility] (1 source) Adhesive agent Propensity to adverse reactions to drug 07-04-19 [facility] (1 source) penicillin G benzathine / penicillin G procaine Drug Allergy 07-04-19 [facility] (1 source) rofecoxib Drug Allergy 07-04-19 [facility] Medications Current Medications Medication Drug Class(es) Dates Sig (Normalized) Sig (Original) apixaban 5 mg oral tablet (18 sources) Factor Xa Inhibitor Start: 08-31-2017 ELIQUIS 5 mg tablet TAKE 1 TABLET TWICE A DAY 180 tablet 3 02/06/2023 Active apixaban 2.5 MG tablet Take by mouth every 12 hours. 0 Active Comment on above: Take 5 mg by mouth t wice daily. aspirin 325 mg oral tablet (2 sources) Platelet Aggregation Inhibitor, Nonsteroidal Anti-inflammatory Drug take 1 tablet by mouth once daily Aspirin 325 MG tablet Take 1 tablet by mouth daily. 0 Active atenolol 50 mg oral tablet (17 sources) beta-Adrenergic Eli Start: 09-10-2022 take 1.5 tablets by mouth in the morning atenoloL (TENORMIN) 50 mg tablet Take 1.5 tablets (75 mg total) by mouth in the morning. 135 tablet 3 09/10/2022 Active Start: 08-31-2017 atenolol (TENO RMIN) 50 mg tablet 25 mg twice daily. 0 08/31/2017 Active take 1 tablet by mirza th once daily Atenolol 25 MG tablet Take 1 tablet by mouth daily. 0 Active take 1 tablet by mirza th once daily Atenolol 50 MG 1 1/2 TAB Orally Once a day Active Comment on above: 25 mg twice daily. azithromycin 250 mg oral tablet (5 sources) Macrolide Antimicrobial Start: 03-30-2023 Azithromycin 250 MG as directed Orally 2 tabs po today, then 1 tab daily x 4 more days for 5 Mar, Active Start: 07-17-2022 Azithromycin 2 50 MG as directed Orally 2 tabs po today, then 1 tab daily x 4 more days for 5 Jul, Active baclofen 20 mg oral tablet (3 sources) gamma-Aminobutyric Acid-ergic Agonist take 1 tablet by mouth three times daily as needed baclofen (LIORESAL) 20 mg tablet Take 1 tablet (20 mg total) by mouth 3 (three) times a day. PRN 0 Active take 1 tablet by mouth three sofia es daily baclofen 10 MG tablet Take 1 [...] x 1 month, then 2x/week for maintainence, [facility]/pharmacy #[id number], 165, cm, 02/11/23 10:41:00 EDT, Height/Length Dosing, 77.5, kg, 02/11/23 10:41:00 EDT, Weight Dosing Start Date: 02/11/23 Status: Ordered hydroCHLOROthiazide 25 mg oral tablet (16 sources) Thiazide Diuretic Start: 09-18-2022 End: 06-02-2023 take 1 mg by mouth once daily hydrochlorothiazide 25 mg Tab mg tab(s), Oral, Daily, Refills(s) 0 Start Date: 02/11/23 Status: Ordered Iron Chews (1 source) Start: 02-11-2023 take 1 mg by mouth once daily Iron Chews mg, Oral, Daily, Refills(s) 0 Start Date: 02/11/23 Status: Ordered lisinopril 20 mg oral tablet (18 sources) Angiotensin Converting Enzyme Inhibitor Start: 02-22-2019 lisinopril 20 mg Tab Refills(s) 0 Start [...] Daily, # 30 tab(s), Refills(s) 11, Pharmacy: [facility]/pharmacy #[id number], 165, cm, 02/11/23 10:41:00 EDT, Height/Length Dosing, 77.5, kg, 02/11/23 10:41:00 EDT, Weight Dosing Start Date: 02/11/23 Status: Ordered Aleve (2 sources) Nonsteroidal Anti-inflammatory Drug Start: 02-11-2023 take 1 mg by mouth every twelve hours Aleve mg, Oral, q12hr, Refills(s) 0 Start Date: 02/11/23 Status: Ordered naproxen sodium (ALEVE) 220 mg tablet Take 1 tablet (220 mg total) by mouth as needed for pain. 0 Active nitrofurantoin, macrocrystals 25 mg / nitrofurantoin, monohydrate 75 mg oral capsule (4 sources) Nitrofuran Antibacterial Start: 06-23-2022 take 1 capsule by mouth every twelve hours Nitrofurantoin Monohyd Macro 100 MG 1 capsule with food Orally every 12 hrs for 7 days Jun, Active NON FORMULARY (1 source) NON FORMULARY Me d Name:Neuveria vitamin 1 qd 0 Active omeprazole 40 mg delayed release oral capsule (18 sources) Proton Pump Inhibitor Start: 02-11-2023 omeprazole 40 mg Cap-DR Refills(s) 0 Start Date: 02/11/23 Status: Ordered take 1 capsule by mouth in the m orning omeprazole (PriLOSEC) 20 mg capsule Take 1 capsule (20 mg total) by mouth in the morning. 0 Active take 1 capsule by mouth once [...] tablet (8 sources) Cholinergic Muscarinic Antagonist Start: 06-06-2022 take 1 tablet by mouth every twenty-four hours Ditropan XL 5 MG 1 tablet Orally Once a day for 90 days Jun, Active potassium & sodium phosphates 280-160-250 MG Pack (2 sources) potassium & sodi um phosphates 280-160-250 MG Pack Take by mouth. 0 Active potassium chloride 10 meq extended release oral tablet (15 sources) Start: 03-31-2022 potassium chloride (K-TAB,KLOR-CON) 10 MEQ CR tablet Take 1 tablet (10 mEq total) by mouth in the morning. 30 tablet 6 03/31/2022 Active take 1 tablet by mirza every twenty-four hours Klor-Con M20 20 MEQ 1 tablet with food Orally Once a day Active Comment on above: Take 10 mEq [...] Oct, Active temazepam 30 mg oral capsule (18 sources) Benzodiazepine Start: 02-19-2023 take 1 capsule by mouth at bedtime Temazepam 30 MG 1 capsule Orally at bedtime for 90 days Feb, Active Start: 02-11-2023 temazepam 30 m g Cap Refills(s) 0 Start Date: 02/11/23 Status: Ordered Start: 08-23-2018 take 1 capsule by [facility] at bedtime Temazepam 30 MG 1 capsule Orally at bedtime for 90 days May, Active take 1 capsule by [facility] at bedtime as needed for sleep temazepam 15 MG capsule Take 1 capsule by mouth At bedtime as needed for Sleep. 0 Active triamcinolone acetonide 1 mg/ml topical cream (2 sources) Corticosteroid Start: 10-30-2022 Triamcinolone Acetonide 0.1 % 1 application Externally Twice a day for 7 days Oct, Active trospium chloride 20 mg oral tablet (4 sources) Cholinergic Muscarinic Antagonist take 1 tablet by mouth in the morning, then take 1 tablet by mouth at bedtime trospium (SANCTURA) 20 mg tablet Take 1 tablet (20 mg total) by mouth in the morning and 1 tablet (20 mg total) before bedtime. 0 Active Trospium Chlorid e Active Completed/Discontinued Medications Medication Drug Class(es) Dates Sig (Normalized) Sig (Original) cyclobenzaprine hydrochloride 10 mg oral tablet (3 sources) Muscle Relaxant Start: 9 take 1 tablet by mouth every twelve hours as needed cyclobenzaprine (FLEXERIL) 10 mg tablet Take 10 mg by mouth twice daily as needed. 0 01/13/2019 Active Comment on above: Take 10 mg by mouth twice daily as needed. ferrous sulfate 325 mg oral tablet (2 sources) Start: 2 End: 4 take 1 tablet by mouth once daily at breakfast ferrous sulfate (FeroSuL) 325 (65 FE) mg tablet Take 1 tablet (325 mg total) by mouth daily with breakfast. 0 11/22/2021 06/02/2023 Discontinued (Therapy completed) flecainide acetate 100 mg oral tablet (3 sources) Antiarrhythmic Start: 8 flecainide (TAMBOCOR) 100 mg tablet Take 100 mg by mouth. 0 10/06/2017 Active Comment on above: Take 100 mg by mouth . hydroCHLOROthiazide 25 mg / losartan potassium 100 mg oral tablet (3 sources) Thiazide Diuretic, Angiotensin 2 Receptor Eli Start: 9 losartan-hydrochlor othiazide (HYZAAR) 100-25 mg per tablet lifitegrast 50 mg/ml ophthalmic solution (3 sources) Lymphocyte Function-Associate d Antigen-1 Antagonist Start: 9 XIIDRA 5 % dpet LORazepam 1 mg oral tablet (3 sources) Benzodiazepine LORazepam (ATIVA N) 1 mg tablet Take 1 mg by mouth. 0 Active Comment on above: Take 1 mg by mouth. meperidine hydrochloride 50 mg oral tablet (3 sources) Opioid Agonist meperidine (DEMEROL) 50 mg tablet Take 25 mg by mouth as needed. 0 Active Comment on above: Take 25 mg by mouth as needed. SUMAtriptan 25 mg oral tablet (14 sources) Serotonin-1b and Serotonin-1d Receptor Agonist Start: 7 SUMAtriptan (IMITREX) 25 mg tablet Take 25 [...] breast] Onset: 09-23-2017 09-23-2017 Episodic Cardiac dysrhythmias (20 sources) Chronic atrial fibrillation; 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: [Chronic atrial fibrillation, unspecified] Onset: 12-11-2016 Resolved: 12-30-2019 03-24-2018 Chronic Complication of device; implant or graft (3 sources) Joint pain; 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: [Pain due to internal orthopedic prosthetic devices, implants and grafts, initial encounter] Onset: 06-01-2023 05-14-2023 Episodic Coronary atherosclerosis and other heart disease (2 sources) Coronary arteriosclerosis; 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: [Atherosclerotic heart disease of [place] coronary artery without angina pectoris] Onset: 07-29-2021 Resolved: 08-16-2021 06-02-2023 Chronic E Codes: Natural/environment (1 source) Exposure to other specified factors, initial encounter; 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: [EXPOSURE OTHER SPEC FACTORS INITIAL] Onset: 04-29-2022 Episodic Esophageal disorders (1 source) Gastro-esophageal reflux disease with esophagitis; 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: [Gastro-esophageal reflux disease with esophagitis, without bleeding] Onset: 05-04-1957 Chronic Essential hypertension (17 sources) Essential (primary) hypertension; 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: [Essential hypertension] [...] 05-06-2023 Chronic Other aftercare (1 source) Other correction (current) drug therapy; 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: [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] Onset: 06-11-2022 Episodic Other aftercare (1 source) Long-term current use of anticoagulant; 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: [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] Onset: 02-11-2023 Episodic [...] 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: [Pain in right hip] Episodic Other skin disorders (1 source) Dyshidrosis [...] Problem Classification Problem Date Documented Date Episodic/Chronic Cardiac dysrhythmias (1 source) Palpitations; 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: [Palpitations] Onset: 06-30-2018 08-16-2021 Episodic Gastroduodenal ulcer (except hemorrhage) (2 sources) Personal history of peptic ulcer disease; 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: [Acute gastric ulcer without hemorrhage, without perforation AND without obstruction] Onset: 05-11-2017 Episodic Mood disorders (1 source) Mood disorders Onset: 04-24-2020 04-24-2020 Other connective tissue disease (1 source) Muscle pain; 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: [Unspecified myalgia and myositis] Onset: 09-15-2016 Episodic Other endocrine disorders (1 source) Disorder of endocrine system; 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: [Unspecified endocrine disorder] Onset: 09-14-2017 Episodic Other liver diseases (1 source) Elevated levels of transaminase & lactic acid dehydrogenase; 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: [Nonspecific elevation of levels of transaminase or lactic acid dehydrogenase (LDH)] Onset: 06-17-2018 Episodic Other lower respiratory disease (3 sources) Dyspnea; 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: [Shortness of breath] Onset: 05-12-2018 Resolved: 08-16-2021 05-12-2018 Episodic Other nutritional; endocrine; and metabolic disorders (2 sources) Body mass index 25-29 - overweight; 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: [Body mass index 29.0-29.9, adult] Onset: 06-23-2016 Episodic Other nutritional; endocrine; and metabolic disorders (1 source) Overweight; 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: [Overweight] Onset: 04-23-2018 Episodic Other screening for suspected conditions (not mental disorders or infectious disease) (16 sources) Patient encounter status; 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: [Encounter for screening mammogram for malignant neoplasm of breast] Onset: 10-06-2014 Episodic Other skin disorders (1 source) Alopecia; [...] Test Name Value Interpretation Reference Range Facility POCT EKGOrdered By: Samantha Gurrola on 06-02-2023 [facility] MRI HIP RIGHT WITHOUT CONTRA STon 06-01-2023 MRI HIP RIGHT WITHOUT CONTRAST EXAM: MRI HIP RIGHT WITHOUT CONTRAST, 06/01/2023 4:25 PM EST INDICATION: Right hip pain for 2 years COMPARISON: Right hip radiographs dated 05/14/2023 TECHNIQUE: MRI of the right hip was performed without intra-articular or intravenous contrast. Limited whole pelvis MR imaging was also performed. FINDINGS: Motion artifact somewhat degrades image quality. Marrow: There is artifact from patient's total right hip prosthesis. Given the artifact there is no abnormal marrow signal in this region. Remainder of the imaged bony structures demonstrate normal marrow signal as well. SI joints/sacrum: Normal. Common hamstrings tendons: Tendinosis of moderate grade partial thickness intrasubstance tearing bilaterally at the common hamstring tendon origins with thinning of the tendons which appears grossly symmetric. Gluteal tendons: Mild insertional tendinosis the gluteus minimus and gluteus medius on the left which is very common in this age group. Evidence suggesting partial thickness tear of the left gluteus minimus tendon insertion given limited imaging on this side. There is tendinosis and evidence of partial-thickness tearing of the gluteus medius and minimus tendinous insertions on the greater trochanter on the right as well. This tearing mainly involves the gluteus minimus on this side with some limitations due to motion and hardware artifact however. There is a small amount of fluid overlying the lateral aspect of the greater trochanter on the right in the distribution of the greater trochanter bursa and may be postsurgical. Fluid measures approximately 2.2 x 0.9 cm in greatest axial dimension and approximately centimeters craniocaudal dimension. Remainder of the imaged muscles and tendons: Grossly unremarkable. Other comments: Post hysterectomy changes noted. Mild sigmoid diverticulosis seen. No free pelvic fluid. Lower lumbar spine degenerative changes noted. There is moderate atrophy of the gluteus minimus muscle on the left. There may be some partial-thickness tearing of the gluteus minimus muscle on the left given limited imaging on this side. There is moderate atrophy involving portions of the gluteus minimus and gluteus medius on the right which is not uncommonly seen after hip arthroplasty but potentially relate to partial thickness tearing of the gluteal tendons in this distribution as well. No other significant finding identified. IMPRESSION: 1. MRI of pelvis/right hip: Limitations due to motion combined with susceptibility artifact from right hip prosthesis. 2. Tendinopathy involving the bilateral common hamstring tendon origins as well as the gluteal tendons as discussed in detail above. 3. Sbcge-nk-aasshewk amount of fluid along the lateral aspect of the greater trochanter in the distribution of the greater trochanteric bursa may relate to postoperative seroma or bursitis. 4. No acute bony finding. Normal marrow signal. NOTE: Other chronic/incidental findings are discussed above. Normal [facility] COBALT AND CHROMIUMon 2023 CHROMIUM,WB 1.1 Normal [facility] Comment on above: Result Comment: Refe rence range: <3.0 Unit: ng/mL PERFORMED BY [facility] COBALT,WB <1.0 Normal [facility] Comment on above: Result Comment: Refe rence range: <3.0 Unit: ng/mL (NOTE) Chromium and cobalt analysis performed by inductively coupled plasma/mass spectrometry (ICP/MS). Reference range is for patients with gnxxh-cg-eqwvr (MoM) orthopedic implants. The [place] [employer] Hip and Knee Surgeons, the [employer] of Orthopaedic Surgeons, and The Hip Society, have published a consensus statement, Risk Stratification Algorithm for Management of Patients with Uugdb-zc-Pwhdq Hip Arthroplasty. The algorithm is intended as an aid to orthopedic surgeons in the assessment and management of patients with Zmgmk-nz-Piitx bearings. The systematic risk stratification includes recommendations [...] developed and its performance characteristics determined by [facility]. It has not been cleared or approved by the Food and Drug Administration. COBALT AND CHROMIUM,WBon Chromium (Bld) [Mass/Vol] 1.1 [facility] Comment on above: Reference range: <3. 0 Unit: ng/mL PERFORMED BY Vitrina [place] (Bld) [Mass/Vol] <1.0 [facility] Comment on above: Reference range: <3. 0 Unit: ng/mL (NOTE) Chromium and cobalt analysis performed by inductively coupled plasma/mass spectrometry (ICP/MS). Reference range is for patients with cwxet-fr-bseqt (MoM) orthopedic implants. The [employer] of Hip and Knee Surgeons, the [employer] of Orthopaedic Surgeons, and The Hip Society, have published a consensus statement, Risk Stratification Algorithm for Management of Patients with Lhnjy-kj-Ydzel Hip Arthroplasty. The algorithm is intended as an aid to orthopedic surgeons in the assessment and management of patients with Snvzj-me-Pdiof bearings. The systematic risk stratification includes recommendations [...] developed and its performance characteristics determined by [facility]. It has not been cleared or approved by the Food and Drug Administration. [facility] C REACTIVE PROTEINon 024 CRP [Mass/Vol] 48.4 mg/L High 0-10 [facility] Comment on above: Performed By: #### E SR, CREACT #### Testing performed at [address] [address] CRP [Mass/Vol] 48.4 mg/L High 0 - 10 MG/L [facility] Interpretation and review of laboratory results Abnormal [facility] ESRon 05-14-2023 ESR (Bld) [Velocity] 31 mm/h High 0-30 [facility] Comment on above: Performed By: #### E KANE [place] #### Testing performed at [facility] [address] [place] [address] SEDIMENTATION RATE, AUTOMATE Don 05-14-2023 ESR (Bld) [Velocity] 31 mm/h [facility] Interpretation and review of laboratory results Abnormal [facility] Ambulatory Visit Summaryon 1 Ambulatory Visit Summary BETTIE BURNS :1945 Visit Date:02/11/2023 Ambulatory Visit Instructions Your Diagnosis Frequent UTI Microscopic hematuria Mixed incontinence Anticoagulated History of breast cancer Former smoker Tests Performed Urnls Dip Stick Auto w/o Microscopy POC 30622 Your Care Team Attending Physician - Paul [...] VILLEGAS, Alfreda Palacios Where: [facility] Lab Reportson 02-11-2023 Lab Reports [id number] 1#[id number] [facility] Patient Educationon 02-12-20 23 Patient Education [...] provider. Document Revised: 08/29/2021 Document Reviewed: 08/29/2021 [employer] Patient Education ? 2022 [employer]. [facility] Physician Referralon 023 Physician Referral [id number] #[id number] Normal [facility] Urinalysis - DIPSTICKon 10-03 Appearance (U) cloudy mydala Other Bilirubin Ql (U) Cater to u ast [facility] Other Color (U) yellow [email or web address] Other Glucose Ql (U) Negative mydala Other Hemoglobin Ql (U) [employer] Other Ketones Ql (U) Negative mydala Other Leukocyte esterase Test strip Ql (U) moderate [employer] Other Nitrite Ql (U) Positive mydala Other pH (U) 5 [pH] [employer] Other Protein Ql (U) Negative mydala Other Specific gravity (U) [Rel density] 1.010 [employer] Other Urobilinogen (U) [Mass/Vol] off chart [employer] Other Urinalysis - DIPSTICK [employer] Other Urine Cultureon 10-27-2022 Bacteria identified Cx Nom (U) ORGANISM: Escherichia coli (O:ESCCOL) [place] Count >100,000 Aerobic AUBREY Charge (NMIC56) ----- [...] RESISTANT TO ALL B-LACTAM DRUGS. PERFORMED BY: [place] [address] PATHOLOGIST [employer] CONSULTANT JOSE GUADALUPE FERGUSON M.D. [facility] Comment on above: Performed By: #### C UU #### [address] [place] 09-11-2022 PAN Telephone (SABINA) BETTIE BURNS ([id number]) 1945 F Date Time Provider Department 09/11/22 MATT ADAMS During your visit today, we recorded the following information about you: Matt Adams RN 09/11/2022 9:54 AM Signed Pt called to request yearly Mammogram order I have pended order as previously completed Pt requests to fax to Nori Lema [phone] BRM/HM: please review and sign if agreeable RICARDO Lopez RN 09/11/2022 11:45 AM Signed Order faxed to [facility] and pt is [...] mammogram for malignant neoplasm of breast [Z12.31] Order(s):[facility] SCREENING W YAW [[id number]] Order #: [id number] FUTURE Prescriptions as of 09/11/2022 - lisinopril [...] Status:Closed by MATT ADAMS on 09/11/[address] [facility] Urinalysis - DIPSTICKon 06-05 Appearance (U) cloudy mydala Other Bilirubin Ql (U) Negative Anxa Other Color (U) pale yellow [employer] Other Glucose Ql (U) Negative mydala Other Hemoglobin Ql (U) non hem-trace [employer] Other Ketones Ql (U) trace mydala Other Leukocyte esterase Test strip Ql (U) moderate [employer] Other Nitrite Ql (U) Negative mydala Other pH (U) 5 [pH] [employer] Other Protein Ql (U) trace mydala Other Specific gravity (U) [Rel density] 1.005 [employer] Other Urobilinogen (U) [Mass/Vol] normal [employer] Other Urinalysis - DIPSTICK [employer] Other CULTURE URINEon 06-11-2022 CULTURE URINE Isolate [...] F Trimethoprim/Sulfame thoxazole <=20 S F Normal [facility] Comment on above: Performed By: #### U RCX #### [facility] [address] [place] [address] Dr. Florencio Narayanan CARDIAC AMBER ADMITon 023 CK [Catalytic activity/Vol] 44 U/L Normal 26-192 [facility] Comment on above: Performed By: #### C LILIAN LOZANO CMADM #### [facility] [address] [place] [address] Dr. Florencio Narayanan CK.MB [Mass/Vol] ng/mL Normal <=3.60 [facility] Comment on above: Performed By: #### C LILIAN LOZANO CMADM #### [facility] [address] [place] [address] Dr. Florencio Narayanan HSTROP 14.6 pg/mL Normal 4.0-51.3 [facility] Comment on above: Result Comment: CUT- OFF POINTS HAVE BEEN ESTABLISHED BASED ON THE FOURTH UNIVERSAL DEFINITIONS OF MYOCARDIAL INFARCTION. THE UPPER REFERENCE LIMIT (URL) OF TROPONIN, DEFINED THE 99TH PERCENTILE OF cTnI DISTRIBUTION IN A REFERENCE POPULATION, HAS BEEN CONFIRMED THE DECISION THRESHOLD FOR AL DIAGNOSIS. Performed By: #### C LILIAN LOZANO CMADM #### [facility] [address] [place] [address] Dr. Florencio Narayanan UMER 109 ng/mL Critically high 9-82 [facility] [place] [facility] Comment on above: Performed By: #### C LILIAN LOZANO CMADM #### [facility] [address] [place] [address] Dr. Florencio Narayanan CBC AUTO DIFFon 06-09-2022 BASO # 0.1 103/ul Normal 0.0-0.1 [facility] Comment on above: Performed By: #### C BC #### [facility] [address] [place] [address] Dr. Florencio Narayanan Basophils/100 WBC (Bld) 0.4 % Normal 0.2-2.0 [facility] Comment on above: Performed By: #### C BC #### [facility] [address] [place] [address] Dr. Florencio Narayanan EO # 0.0 103/ul Normal 0.0-0.7 [facility] Comment on above: Performed By: #### C BC #### [facility] [address] [place] [address] Dr. Florencio Narayanan Eosinophils/100 WBC (Bld) 0.2 % Critically low 0.9-7.0 [facility] Comment on above: Performed By: #### C BC #### [facility] [address] [place] [address] Dr. Florencio Narayanan Erythrocyte distribution width (RBC) [Ratio] 12.3 % Normal 11.0-15.0 [facility] Comment on above: Performed By: #### C BC #### [facility] [address] [place] [address] Dr. Florencio Narayanan Hematocrit (Bld) [Volume fraction] 38.4 % Normal 36.0-48.0 [facility] Comment on above: Performed By: #### C BC #### [facility] [address] [place] [address] Dr. Florencio Narayanan Hemoglobin (Bld) [Mass/Vol] 12.7 g/dL Normal 12.0-16.0 [facility] Comment on above: Performed By: #### C BC #### [facility] [address] [place] [address] Dr. Florencio Narayanan IG # 0.06 10e3/ul Critically high 0.00-0.03 [facility] Comment on above: Performed By: #### C BC #### [facility] [address] [place] [address] Dr. Florencio Narayanan IG % 0.5 % Normal 0.0-0.5 [facility] Comment on above: Performed By: #### C BC #### [facility] [address] [place] [address] Dr. Florencio Narayanan LYMPH # 1.0 103/ul Critically low 1.2-3.8 [facility] Comment on above: Performed By: #### C BC #### [facility] [address] [place] [address] Dr. Florencio Narayanan Lymphocytes/100 WBC (Bld) 8.4 % Critically low 20.5-60.0 [facility] Comment on above: Performed By: #### C BC #### [facility] [address] [place] [address] Dr. Florencio Narayanan MANUAL DIFF REQ NO Normal [facility] Comment on above: Performed By: #### C BC #### [facility] [address] [place] [address] Dr. Florencio Narayanan MCH (RBC) [Entitic mass] 32.4 pg Normal 26.7-34.0 [facility] Comment on above: Performed By: #### C BC #### [facility] [address] [place] [address] Dr. Florencio Narayanan MCHC (RBC) [Mass/Vol] 33.1 g/dL Normal 29.9-35.2 [facility] Comment on above: Performed By: #### C BC #### [facility] [address] [place] [address] Dr. Florencio Narayanan MCV (RBC) [Entitic vol] 98.0 fL Normal 81.0-99.0 [facility] Comment on above: Performed By: #### C BC #### [facility] [address] [place] [address] Dr. Florencio Narayanan MONO # 1.6 103/ul Critically high 0.3-0.8 [facility] Comment on above: Performed By: #### C BC #### [facility] [address] [place] [address] Dr. Florencio Narayanan Monocytes/100 WBC (Bld) 13.1 % Critically high 1.7-12.0 [facility] Comment on above: Performed By: #### C BC #### [facility] [address] [place] [address] Dr. Florencio Narayanan NEUT # 9.5 103/ul Critically high 1.4-6.5 [facility] Comment on above: Performed By: #### C BC #### [facility] [address] [address] [address] Florencio Narayanan Neutrophils/100 WBC (Bld) 77.4 % Critically high 43.0-75.0 [facility] Comment on above: Performed By: #### C BC #### [facility] [address] [address] [address] Florencio Narayanan Platelet mean volume (Bld) [Entitic vol] 9.4 fL Critically low 9.5-13.5 [facility] Comment on above: Performed By: #### C BC #### [facility] [address] [place] [address] Dr. Florencio Narayanan PLT 140 103/ul Critically low 150-450 [facility] Comment on above: Performed By: #### C BC #### [facility] [address] [place] [address] Dr. Florencio Narayanan RBC 3.92 106/ul Critically low 4.20-5.40 [facility] Comment on above: Performed By: #### C BC #### [facility] [address] [place], [place] [id number] Dr. Florencio Narayanan WBC 12.2 103/ul Critically high 4.0-11.0 [facility] Comment on above: Performed By: #### C BC #### [facility] [address] [place] [address] STROKE HEAD WOon [...] LUANA VILLAFANA Date: 2022-06-09 12:24 Normal [facility]on SARS-CoV-2 (COVID-19) RNA CHRISTOPHER+probe Ql (Unsp spec) Not detected Normal NOT DETECTED [facility] Comment on above: Result Comment: [...] for this test is supported by the [employer] of Health and Human Service's declaration that [...] used). Performed By: #### C VDTB #### [facility] [address] [place] [address] Dr. Florencio Narayanan ER URINE PROFILEon 3 Bilirubin Ql (U) Negative Normal NEGATIVE [facility] Comment on above: Performed By: #### ADIEL LE #### [facility] [address] [place] [address] Dr. Florencio Narayanan Clarity (U) CLEAR Normal CLEAR [facility] Comment on above: Performed By: #### ADIEL LE #### [facility] [address] [place] [address] Dr. Florencio Narayanan Color (U) LT. YELLOW Normal YELLOW [facility] Comment on above: Performed By: #### E ADIEL PIZANO #### [facility] [address] [place] [address] Dr. Yilan Narayanan ERUAHD A micrscopic examination will be performed if indicated. Normal [facility] Comment on above: Performed By: #### Malini PIZNAO UMICRO #### [facility] [address] [place] [address] Dr. Florencio Narayanan Glucose Ql (U) Negative Normal NEGATIVE [facility] Comment on above: Performed By: #### Malini PIZANO UMICRO #### [facility] [address] [address] [address] Florencio Narayanan Hemoglobin Ql (U) LARGE Abnormal NEGATIVE [facility] Comment on above: Performed By: #### Malini PIZANO UMICRO #### [facility] [address] [address] [address] Florencio Narayanan Ketones Ql (U) TRACE Abnormal NEGATIVE [facility] Comment on above: Performed By: #### Malini PIZANO UMICRO #### [facility] [address] [place] [address] Dr. Florencio Narayanan LEUKOCYTES LARGE Abnormal NEGATIVE [facility] Comment on above: Performed By: #### Malini PIZANO UMICRO #### [facility] [address] [place] [address] Dr. Florencio Narayanan Nitrite Ql (U) Positive Abnormal NEGATIVE [facility] Comment on above: Performed By: #### Malini PIZANO UMICRO #### [facility] [address] [place] [address] Dr. Florencio Narayanan pH (U) 5.5 [pH] Normal 5-9 [facility] Comment on above: Performed By: #### Malini PIZANO UMICRO #### [facility] [address] [place] [address] Dr. Florencio Narayanan SPEC GRAVITY 1.010 Normal 1.005-<=1.025 [facility] Comment on above: Performed By: #### Malini PIZANO UMICRO #### [facility] [address] [place] [address] Dr. Florencio Narayanan UA PROTEIN TRACE Normal NEGATIVE/ TRACE [facility] Comment on above: Performed By: #### Malini PIZANO UMICRO #### [facility] [address] [place] [address] Dr. Florencio Narayanan UR MICRO IND INDICATED Normal [facility] Comment on above: Performed By: #### ADIEL LE #### [facility] [address] [place] [address] Dr. Florencio Narayanan Urobilinogen Qn (U) 0.2 {Zenia'U}/dL Normal 0.2 - 1. 0 [facility] Comment on above: Performed By: #### ADIEL LE #### [facility] [address] [place] [address] Dr. Florencio Narayanan LIPASEon 06-09-2022 Lipase [Catalytic activity/Vol] 68.0 U/L Critically low 73.0-393.0 [facility] Comment on above: Performed By: #### C MP, LIPA, CMADM #### [facility] [address] [place] [address] Dr. Florencio Narayanan PROF 14(COMP METB)on 023 Albumin [Mass/Vol] 2.5 g/dL Critically low 3.4-5.0 [facility] Comment on above: Performed By: #### C MP, LIPA, CMADM #### [facility] [address] [place] [address] Dr. Florencio Narayanan Albumin/Globulin [Mass ratio] 0.6 {ratio} Normal [facility] Comment on above: Performed By: #### C MP, LIPA, CMADM #### [facility] [address] [place] [address] Dr. Florencio Narayanan ALP [Catalytic activity/Vol] 150 U/L Critically high 46-116 [facility] Comment on above: Performed By: #### C MP, LIPA, CMADM #### [facility] [address] [place] [address] Dr. Florencio Narayanan ALT [Catalytic activity/Vol] 27 U/L Normal 14-59 [facility] Comment on above: Performed By: #### C MP, LIPA, CMADM #### [facility] [address] [place] [address] Dr. Florencio Narayanan Anion gap [Moles/Vol] 12.8 mmol/L Normal [facility] Comment on above: Performed By: #### C MP LIPA, CMADM #### [facility] [address] [address] [address] Florencio Narayanan AST [Catalytic activity/Vol] 31 U/L Normal 15-37 [facility] Comment on above: Performed By: #### C MP, LIPA, CMADM #### [facility] [address] [address] [address] Florencio Narayanan Bilirubin [Mass/Vol] 1.1 mg/dL Critically high 0.2-1.0 [facility] Comment on above: Performed By: #### C MP, LIPA, CMADM #### [facility] [address] [address] [address] Florencio Narayanan Calcium [Mass/Vol] 9.1 mg/dL Normal 8.5-10.1 [facility] Comment on above: Performed By: #### C MP, LIPA, CMADM #### [facility] [address] [address] [address] Florencio Narayanan Chloride [Moles/Vol] 95 mmol/L Critically low 98-107 [facility] Comment on above: Performed By: #### C MP, LIPA, CMADM #### [facility] [address] [address] [address] Florencio Narayanan CO2 [Moles/Vol] 29.4 mmol/L Normal 21.0-32.0 [facility] Comment on above: Performed By: #### C MP, LIPA, CMADM #### [facility] [address] [address] [address] Florencio Narayanan Creatinine [Mass/Vol] 1.34 mg/dL Critically high 0.55-1.02 [facility] Comment on above: Performed By: #### C MP, LIPA, CMADM #### [facility] [address] [address] [address] Florencio Narayanan EGFR-AF ESTONIAN 47 mL/min/1.73m2 Critically low >=60 [facility] Comment on above: Performed By: #### C MP, LIPA, CMADM #### [facility] [address] [address] [address] Florencio Narayanan EGFR-NON AF ESTONIAN 39 mL/min/1.73m2 Critically low >=60 [facility] Comment on above: Performed By: #### C MP, LIPA, CMADM #### [facility] [address] [address] [address] Florencio Narayanan Globulin (S) [Mass/Vol] 4.3 g/dL Normal [facility] Comment on above: Performed By: #### C MP, LIPA, CMADM #### [facility] [address] [place] [address] Dr. Florencio Narayanan Glucose [Mass/Vol] 118 mg/dL Critically high 74-[address] [facility] Comment on above: Performed By: #### C MP, LIPA, CMADM #### [facility] [address] [place] [address] Dr. Florencio Narayanan Potassium [Moles/Vol] 3.2 mmol/L Critically low 3.5-5.1 [facility] Comment on above: Performed By: #### C MP LIPA, CMADM #### [facility] [address] [place] [address] Dr. Florencio Narayanan Protein [Mass/Vol] 6.8 g/dL Normal 6.4-8.2 [facility] Comment on above: Performed By: #### C MP, LIPA, CMADM #### [facility] [address] [place] [address] Dr. Florencio Narayanan Sodium [Moles/Vol] 134 mmol/L Critically low 136-[address] [facility] Comment on above: Performed By: #### C MP, LIPA, CMADM #### [facility] [address] [place] [address] Dr. Florencio Narayanan Urea nitrogen [Mass/Vol] 29.0 mg/dL Critically high 7.0-18.0 [facility] Comment on above: Performed By: #### C MP, LIPA, CMADM #### [facility] [address] [place] [address] Dr. Florencio Narayanan Urea nitrogen/Creatinine [Mass ratio] 21.6 mg/mg Normal [facility] Comment on above: Performed By: #### C LILIAN LOZANO, CMADM #### [facility] [address] [place] [address] Dr. Florencio Narayanan URINE MICROSCOPIC ONLYon BACTERIA SMALL Abnormal NONE SEEN [facility] Comment on above: Performed By: #### Malini PIZANO, UMICRO #### [facility] [address] [place] [address] Dr. Florencio Narayanan Bacteria identified Cx Nom (U) INDICATED Normal [facility] Comment on above: Performed By: #### Malini PIZANO UMICRO #### [facility] [address] [place] [address] Dr. Florencio Narayanan CAST NONE SEEN Normal NONE SEEN [facility] Comment on above: Performed By: #### Malini PZIANO UMICRO #### [facility] [address] [place] [address] Dr. Florencio Narayanan Crystals LM Nom (Urine sed) NONE SEEN Normal NONE SEEN [facility] Comment on above: Performed By: #### Malini PIZANO UMICRO #### [facility] [address] [place] [address] Dr. Florencio Narayanan Epithelial cells LM Ql (Urine sed) FEW Abnormal NONE SEEN /RARE [facility] Comment on above: Performed By: #### Malini PIZANO UMICRO #### [facility] [address] [place] [address] Dr. Florencio Narayanan MUCOUS NONE SEEN Normal NONE SEEN [facility] Comment on above: Performed By: #### Malini PIZANO UMICRO #### [facility] [address] [place] [address] Dr. Florencio Narayanan RBC 2-5 Abnormal 0-2 [facility] Comment on above: Performed By: #### Malini PIZANO UMICRO #### [facility] [address] [place] [address] Dr. Florencio Narayanan WBC 10-20 Abnormal NONE SEEN [facility] Comment on above: Performed By: #### E ADIEL PIZANO #### [facility] [address] [place], [place] [address] Dr. Florencio Narayanan XR CHEST 2 Von [...] JOAQUÍN ATKINS Date: 2022-06-09 12:24 Normal [facility] CULTURE URINEon 04-16-2022 CULTURE URINE [...] Trimethoprim/Sulfame thoxazole >=320 R F Normal [facility] Comment on above: Performed By: #### C BC #### [facility] [address] [place], [place] [address] Dr. Florencio Lynn 10-03-2021 PAN Telephone ([employer]) FRAILEY,BETTIE G ([id number]) 1945 F Date Time Provider Department 10/03/21 [...] Z17.0] Order(s):CBC + DIFF [SQCBCDIF] Order #: [id number] FUTURE COMP METABOLIC PANEL [SQCMP] Order #: [id number] FUTURE CA 27.29 BLOOD [[id number]] Order #: [id number] FUTURE Prescriptions as of 10/03/2021 - lisinopril [...] Encounter Status:Closed by [facility] ([facility]) BETTIE BURNS ([id number]) 1945 F Date Time Provider Department 09/26/21 ELTON DOMINGUEZ During your visit today, we recorded the following information about you: Elton Dominguez RN 09/26/2021 2:36 PM Signed Pt scheduled for diagnostic mamm tomorrow @ [facility]. Hospital calls to ask if this could be changed to a screening mammogram since the pt is greater than 2 years from diagnosis? RICARDO Jean-Baptiste MD 09/26/2021 5:14 PM Addendum Okay to change to screening mammogram. Order signed. Thanks, ASIYA Dominguez RN 09/27/2021 8:12 AM Signed Order faxed to [facility] @ [phone]. Elton Dominguez RN Allergies As of Date: [...] of breast [Z12.31] Order(s):[facility] SCREENING W YAW [[id number]] Order #: [id number] FUTURE Prescriptions as of 09/27/2021 - lisinopril [...] by ANDREW CHOI on 09/26/[address] [facility] MRI Hip w/o Righton 09-12-19 MRI [...] on 09/11/2021 1545 Normal [facility] Filterer Consult Reporton 03-14-2020 Consult Report [facility] CONSULTATION BETTIE BURNS [id number] OBSV ANABEL WATKINS MD [id number] REFERRING PHYSICIAN: CONSULTING PHYSICIAN: Renetta Almanzar MD DATE OF CONSULTATION: 03/11/2020 REASON: A near syncopal event in a 74-year-old female, with a history of atrial fibrillation, previous cardiac ablation, who was the time of evaluation noted to have a positive test for COVID. HISTORY OF PRESENT ILLNESS: Mrs. Burns is a very pleasant, alert and oriented -[id number] female who was brought into the emergency [...] quarantine. Many thanks. RENETTA ALMANZAR MD BD/MedQ /[id number] [facility] BASICMETAon 03-11-2020 GFR AA >60 [facility] Comment on above: Result Comment: Afri can Scottish GFR Calc Medical judgement is necessary to [...] for drug dosing. Performed By: #### 1 74881, 175880, 835584 ####[facility] Obfbuxbb42926 [place] [address] Medical Director: Fahad Cast MD GFR/1.73 sq M predicted among non-blacks MDRD (S/P/Bld) [Vol rate/Area] 56 mL/min/1.73m? Normal [facility] Comment on above: Result Comment: Non GFR [...] for drug dosing. Performed By: #### 1 32655, 935504, 827368 ####[facility] Ridsfxgw48937 [place] [address] Medical Director: Fahad Cast MD Osmolality [Osmolality] 291 mOsm/kg Normal 275-295 [facility] Comment on above: Performed By: #### 1 19341, 122606, 476293 ####[facility] Amlmvqmu72816 [place] [address] Medical Director: Fahad Cast MD Urea nitrogen/Creatinine [Mass ratio] 24.5 mg/mg Normal [facility] Comment on above: Performed By: #### 1 71875, 760529, 509904 ####[facility] Bufpmawx77350 [place] [address] Medical Director: Fahad Cast MD Calcium [Mass/Vol] 9.3 mg/dL Normal 8.5-10.5 [facility] Comment on above: Performed By: #### 1 24579, 100001, 714612 ####[facility] Qvlhsdwz32096 [place] [address] Medical Director: Fahad Cast MD Chloride [Moles/Vol] 108 mmol/L Normal 100-109 [facility] Comment on above: Performed By: #### 1 36512, 016904, 811221 ####[facility] Oddgzkai89787 [place] [address] Medical Director: Fahad Cast MD CO2, venous 28.9 mmol/L Normal 21.0-32.0 [facility] Comment on above: Performed By: #### 1 23789, 824388, 498820 ####[facility] Gcwwtxtv35717 [place] [address] Medical Director: Fahad Cast MD Creatinine [Mass/Vol] 1.0 mg/dL Normal 0.6-1.0 [facility] Comment on above: Performed By: #### 1 69498, 399958, 602177 ####[facility] Cmfoynrt96634 [place] [address] Medical Director: Fahad Cast MD Glucose [Mass/Vol] 98 mg/dL Normal 72-100 [facility] Comment on above: Result Comment: Sharon puncture should occur prior to sulfasalazine administration due to the potential for falsely depressed results. Venipuncture should occur prior to sulfapyridine administration due to the potential falsely elevated results. Baseline assay values before administration of sulfasalazine and sulfapyridine therapy would not be affected. Performed By: #### 1 68785, 812811, 278040 ####[facility] Fazbajcn95883 [place], [place] [id number]) [phone] Director: Fahad Cast MD Potassium [Moles/Vol] 4.2 mmol/L Normal 3.5-5.1 [facility] Comment on above: Performed By: #### 1 19826, 844060, 700598 ####[facility] Bnmdeclc85857 [place], [place] [id number]) [phone] Director: Fahad Cast MD Sodium [Moles/Vol] 144 mmol/L Normal 135-145 [facility] Comment on above: Performed By: #### 1 46316, 224055, 823750 ####[facility] Kqncplbc00572 [place] [address] Medical Director: Fahad Cast MD Urea nitrogen [Mass/Vol] 24 mg/dL High 10-20 [facility] Comment on above: Performed By: #### 1 24354, 957014, 250389 ####[facility] Pgxenwfw68185 [place], [place] [id number]) [phone] Director: Fahad Cast MD CBCNDon 03-11-2020 Erythrocyte distribution width (RBC) [Ratio] 14.4 % Normal 11.5-14.5 [facility] Comment on above: Performed By: #### 1 76997, 615269, 198244 #### [facility] [address] [place] [address] Crusher Machine Operator: Fahad Cast MD Hematocrit (Bld) [Volume fraction] 33.9 % Low 36.0-46.0 [facility] Comment on above: Performed By: #### 1 20690, 031449, 308086 #### [facility] [address] [place] [address] Crusher Machine Operator: Fahad Cast MD Hemoglobin (Bld) [Mass/Vol] 11.2 g/dL Low 12.0-16.0 [facility] Comment on above: Performed By: #### 1 64443, 191476, 157753 #### [facility] [address] [place] [address] Crusher Machine Operator: Fahad Cast MD MCH (RBC) [Entitic mass] 29.5 pg Normal 27.0-34.0 [facility] Comment on above: Performed By: #### 1 54386, 359073, 141349 #### [facility] [address] [place], [place] [address] Crusher Machine Operator: Fahad Cast MD MCHC (RBC) [Mass/Vol] 33.0 g/dL Normal 32.0-37.0 [facility] Comment on above: Performed By: #### 1 20066, 275422, 765394 #### [facility] [address] [place] [address] Crusher Machine Operator: Fahad Cast MD MCV (RBC) [Entitic vol] 89.5 fL Normal 80.0-100.0 [facility] Comment on above: Performed By: #### 1 50011, 925001, 376466 #### [facility] [address] [place] [address] Crusher Machine Operator: Fahad Cast MD Platelet mean volume (Bld) [Entitic vol] 6.8 fL Low 7.4-10.4 [facility] Comment on above: Performed By: #### 1 55133, 654491, 337055 #### [facility] [address] [place] [address] Crusher Machine Operator: Fahad Cast MD Platelets (Bld) [#/Vol] 232 x1000 Normal 150-450 [facility] Comment on above: Performed By: #### 1 80635, 705212, 745055 #### [facility] [address] [place] [address] Crusher Machine Operator: Fahad Cast MD RBC (Bld) [#/Vol] 3.79 x10 Low 4.20-5.40 [facility] Comment on above: Result Comment: Note : RBC morphology is normal unless otherwise stated. Evaluation performed only if differential is requested. Performed By: #### 1 53686, 149233, 596565 #### [facility] [address] [place] [address] Crusher Machine Operator: Fahad Cast MD WBC (Bld) [#/Vol] 5.8 10*3/uL Normal [facility] Comment on above: Performed By: #### 1 48059, 913830, 414421 #### [facility] [address] [place] [address] Crusher Machine Operator: Fahad Cast MD WBC (Bld) [#/Vol] 5.8 x10 Normal 4.5-11.0 [facility] Comment on above: Performed By: #### 1 36210, 849554, 326346 #### [facility] [address] [place] [address] Crusher Machine Operator: Fahad Cast MD D Dimer HSon 03-11-2020 D Dimer HS 821 ng/mL FEU High <=499 [facility] Comment on above: Result Comment: Excl usion of PE and DVT The D Dimer HS assay is reported in ng/ml Fibrinogen Equivalent Units (FEU). Per bridge painter helper?s instructions for use, a value less than 500ng/ml (FEU) may help to exclude DVT and /or PE in outpatients when the assay is used with a clinical pretest probability assessment. D-Dimer used for DIC Screens Assay results should be used with other information, including the clinical context in forming a diagnosis. Performed By: #### C [id number] ####[facility] Cgwvpvlf18766 [place], [place] 835[address]30 Medical Director: Fahad Cast MD LDHon 03-11-2020 LDH 198 unit/L Normal 84-246 [facility] Comment on above: Performed By: #### 1 80755, 333627, 488962 #### [facility] [address] [place], [place] 89440[address] Crusher Machine Operator: Fahad Cast MD Progress Note-Physicianon Progress Note-Physician Patient: BETTEI BURNS Age: 74 years Sex: Female : [...] medications. 6) DVT ppx: On Eliquis Normal [facility] Utilization Review Noteon Utilization Review Note ID Consult pending DISCHARGE WRITTEN AND PLANNED. Normal [facility] AUTO DIFFon 03-10-2020 Basophils (Bld) [#/Vol] 0.05 x1000 Normal 0.00-0.20 [facility] Comment on above: Performed By: #### 1 00733, 197967, 3528558 ####[facility] Bljuhses19551 [place] [address] Medical Director: Fahad Cast MD Basos % 0.6 % Normal [facility] Comment on above: Performed By: #### 1 57865, 729470, 7691382 ####[facility] Uveoffvo80844 [place] [address] Medical Director: Fahad Cast MD Eos Count 0.15 x1000 Normal 0.00-0.50 [facility] Comment on above: Performed By: #### 1 41051, 581662, 1659800 ####[facility] Jfoncmqt17483 [place] [address] Medical Director: Fahad Cast MD Eosinophils/100 WBC (Bld) 1.8 % Normal [facility] Comment on above: Performed By: #### 1 81232, 344497, 9122133 ####[facility] Jvsbpbig28137 [place] [address] Medical Director: Fahad Cast MD Lymphocytes (Bld) [#/Vol] 1.05 x1000 Low 1.20-4.80 [facility] Comment on above: Performed By: #### 1 30286, 284753, 1979791 ####[facility] Ybfcfmav74142 [place] [address] Medical Director: Fahad Cast MD Lymphocytes/100 WBC (Bld) 12.7 % Normal [facility] Comment on above: Performed By: #### 1 59724, 711548, 1721128 ####[facility] Oifnjnsb17650 [place] [address] Medical Director: Fahad Cast MD Glascock Count 0.70 x1000 Normal 0.10-1.00 [facility] Comment on above: Performed By: #### 1 30003, 620710, 9594203 ####[facility] Oenvapod60183 [place] [address] Medical Director: Fahad Cast MD Monocytes/100 WBC (Bld) 8.4 % Normal [facility] Comment on above: Performed By: #### 1 45897, 555974, 4473874 ####[facility] Whdprfun75822 [place] [address] Medical Director: Fahad Cast MD Neutrophils (Bld) [#/Vol] 6.32 x1000 Normal 1.40-8.80 [facility] Comment on above: Performed By: #### 1 75535, 735182, 7761843 ####[facility] Vexblnlp45598 [place] [address] Medical Director: Fahad Cast MD Neutrophils/100 WBC (Bld) 76.4 % Normal [facility] Comment on above: Performed By: #### 1 59325, 531138, 8893216 ####[facility] Askuvdsg52533 [place] [address] [facility] Director: Fahad Cast MD COMPMETAon 03-10-2020 Albumin [Mass/Vol] 3.4 g/dL Normal 3.4-5.0 [facility] Comment on above: Performed By: #### 1 , 941870, 3439455 ####[facility] Gtbwgwqf59592 [place] [address] Medical Director: Fahad Cast MD Albumin/Globulin [Mass ratio] 0.8 {ratio} Normal [facility] Comment on above: Performed By: #### 1 , 747983, 5095761 ####[facility] Ozzxsmpj60507 [place] [address] Medical Director: Fahad Cast MD Alk Phos 71 unit/L Normal 45-117 [facility] Comment on above: Performed By: #### 1 , 832666, 1810981 ####[facility] Az[address]zyjw77[address] [place] [address]8030 Medical Director: Fahad Cast MD Bilirubin [Mass/Vol] 0.37 mg/dL Normal 0.20-1.00 [facility] Comment on above: Result Comment: Use of this assay is not recommended for patients undergoing treatment with eltrombopag due to the potential for falsely elevated results. Performed By: #### 1 , 899154, 3835750 ####[facility] Rbpaciln01289 [place] [address] Medical Director: Fahad Cast MD Calcium [Mass/Vol] 9.4 mg/dL Normal 8.5-10.5 [facility] Comment on above: Performed By: #### 1 , 998073, 1264031 ####[facility] Efktsymb66060 [place] [address] Medical Director: Fahad Cast MD Chloride [Moles/Vol] 108 mmol/L Normal 100-109 [facility] Comment on above: Performed By: #### 1 95227, 422766, 1963711 ####[facility] Xxhzyuet77363 [place] [address] Medical Director: Fahad Cast MD CO2, venous 28.2 mmol/L Normal 21.0-32.0 [facility] Comment on above: Performed By: #### 1 30403, 718479, 0887395 ####[facility] Iexunxug02748 [place] [address] Medical Director: Fahad Cast MD Creatinine [Mass/Vol] 1.2 mg/dL High 0.6-1.0 [facility] Comment on above: Performed By: #### 1 32467, 036947, 7585485 ####[facility] Oxueusxp56763 [place] [address]80[address] Medical Director: Fahad Cast MD GFR AA 53 Normal [facility] Comment on above: Result Comment: Afri can Scottish GFR Calc Medical judgement is necessary to [...] for drug dosing. Performed By: #### 1 58538, 998358, 4395328 ####[facility] Dyrzteni32933 [place], [place] [address]) [phone] Director: Fahad Cast MD GFR/1.73 sq M predicted among non-blacks MDRD (S/P/Bld) [Vol rate/Area] 44 mL/min/1.73m? Normal [facility] Comment on above: Result Comment: Non GFR [...] for drug dosing. Performed By: #### 1 47963, 427945, 3676513 ####[facility] Gznqqxdo70294 [place], [place] [address]) [phone] Director: Fahad Cast MD Globulin (S) [Mass/Vol] 4.0 g/dL Normal [facility] Comment on above: Performed By: #### 1 43465, 850700, 2576070 ####[facility] Snhdqqcs39183 [place], [place] [address]) [phone] Director: Fahad Cast MD Glucose [Mass/Vol] 143 mg/dL High 72-100 [facility] Comment on above: Result Comment: Sharon puncture should occur prior to sulfasalazine administration due to the potential for falsely depressed results. Venipuncture should occur prior to sulfapyridine administration due to the potential falsely elevated results. Baseline assay values before administration of sulfasalazine and sulfapyridine therapy would not be affected. Performed By: #### 1 42477, 304034, 3257407 ####[facility] Opbrpqtn09044 [place], [place] [address]) [phone] Director: Fahad Cast MD GOT 18 unit/L Normal 15-37 [facility] Comment on above: Result Comment: Sharon puncture should occur prior to sulfasalazine and/or sulfapyridine administration due to the potential for falsely depressed results. Baseline assay values before administration of sulfasalazine and sulfapyridine therapy would not be affected. Performed By: #### 1 45848, 637360, 2898952 ####[facility] Ezmvrwlh43620 [place], [place] [address]) [phone] Director: Fahad Cast MD GPT 19 unit/L Normal 13-56 [facility] Comment on above: Result Comment: Sharon puncture should occur prior to sulfasalazine and/or sulfapyridine administration due to the potential for falsely depressed results. Baseline assay values before administration of sulfasalazine and sulfapyridine therapy would not be affected. Performed By: #### 1 18750, 329406, 7877237 ####[facility] Zlubklbz91742 [place] [address] Medical Director: Fahad Cast MD Osmolality [Osmolality] 293 mOsm/kg Normal 275-295 [facility] Comment on above: Performed By: #### 1 16360, 389031, 5503202 ####[facility] Jszwgdzh71695 [place] [address] Medical Director: Fahad Cast MD Potassium [Moles/Vol] 4.0 mmol/L Normal 3.5-5.1 [facility] Comment on above: Performed By: #### 1 89881, 617119, 2861942 ####[facility] Kajihrcj02763 [place] [address] Medical Director: Fahad Cast MD Protein [Mass/Vol] 7.4 g/dL Normal 6.0-8.5 [facility] Comment on above: Performed By: #### 1 25553, 354766, 7786512 ####[facility] Uiznssil01033 [place] [address] Medical Director: Fahad Cast MD Sodium [Moles/Vol] 142 mmol/L Normal 135-145 [facility] Comment on above: Performed By: #### 1 00263, 821376, 6872347 ####[facility] Pdsjdfff25027 [place] [address] Medical Director: Fahad Cast MD Urea nitrogen [Mass/Vol] 32 mg/dL High 10-20 [facility] Comment on above: Performed By: #### 1 14641, 357851, 9304900 ####[facility] Xzhyadcs47461 [place] [address] Medical Director: Fahad Cast MD Urea nitrogen/Creatinine [Mass ratio] 26.7 mg/mg Normal [facility] Comment on above: Performed By: #### 1 82201, 416348, 5593124 ####[facility] Lpfubuud09828 [place] [address] Medical Director: Fahad Cast MD COVID-19 by PCR SWEDon 03-10 COVID-19 by PCR SWED Positive Abnormal [facility] Comment on above: Result Comment: CALL DEANNA CHRISTIE 03/10/2020 18:23:22 EST BY SHF; RBR Performed By: #### C D:[id number] ####[facility] Cfnkhzhf07138 [place] [address] [facility] Director: Fahad Cast MD CRP QUANTon 03-10-2020 C-Reactive Protein, Quantitative 0.8 mg/dL High 0.0-0.3 [facility] Comment on above: Performed By: #### 1 31269, [id number], [id number], [id number] #### [facility] [address] [place] [address] Crusher Machine Operator: Fahad Cast MD CT ABD PELVIS W [...] by: Oni Liu MD 03/10/2020 3:50 PM PUBLIC ADDRESS SYSTEM OPERATOR Technologist: LIEN BLANCA Dictated By: ONI LIU MD Signed By: ONI LIU MD Signed Out: 03/10/20 16:50:49 Normal [facility] D Dimer HSon 03-10-2020 D Dimer HS 264 ng/mL FEU Normal <=499 [facility] Comment on above: Result Comment: Excl usion of PE and DVT The D Dimer HS assay is reported in ng/ml Fibrinogen Equivalent Units (FEU). Per bridge painter helper?s instructions for use, a value less than 500ng/ml (FEU) may help to exclude DVT and /or PE in outpatients when the assay is used with a clinical pretest probability assessment. D-Dimer used for DIC Screens Assay results should be used with other information, including the clinical context in forming a diagnosis. Performed By: #### 1 85148, [id number], [id number], [id number] #### [facility] [address] [place] [address] Crusher Machine Operator: Fahad Cast MD ED Physician Reporton 2019 ED Physician Report Patient: BETTIE BURNS Age: 74 years Sex: Female : 1945 Associated Diagnoses: Syncope Author: GLADYS HILARIO DO Basic Information Time seen: Time Seen: TATE GLADYS / 03/10/2020 14:25 . History source: Patient, [...] Line Saline Flush: 3 mL, IV Push, [id number] Documented Medications Documented Eliquis 5 mg oral [...] Interp, Sinus rhythm with first-degree AV block, OK interval 256, QT/QTc/433, incomplete right bundle branch [...] /100WBC NA Lymph % 12.7 % NA Glascock % 8.4 % NA Neutrophil % 76.4 % NA Eosin % 1.8 % NA Basos % 0.6 % NA Lymph Count 1.05 x1000 LOW Glascock Count 0.70 x1000 NORMAL Neutrophil Count (ANC) [...] by: Monae Hernandez MD 03/10/2020 1:58 PM PUBLIC ADDRESS SYSTEM OPERATOR Signed By: MONAE HERNANDEZ MD CT ABD [...] by: Oni Liu MD 03/10/2020 3:50 PM PUBLIC ADDRESS SYSTEM OPERATOR Signed By: ONI LIU MD . [...] Course: improving. Impression and Plan Diagnosis Syncope ([id number], Working, Medical) Plan Condition: Stable. Disposition: [...] accurately records my words and actions.. Normal [facility] ED Pre-Arrival Formon 2019 ED Pre-Arrival Form Pre-Arrival Summary Name: STR, Current Date: 03/10/2020 13:52:19 EST Gender: Date of : Age: Pre-Arrival Type: EMS ETA: 03/10/2020 14:15:00 EST Primary Care Physician: Presenting Problem: Pre-Arrival User: Neil Vázquez RN Referring Source: Location: 1 [facility] Emergency Department [address] [place] [address] ____ Notes: Vital Signs: Doctor Call Back: DNR Status: Miscellaneous Issues: Normal [facility] ED Progress Noteon 0 ED Progress Note report not put in by previous rn pt here for syncopal episode after diarrhea episode pt has hx of afib. pt covid+ report called to neil ramsey will come get pt Normal [facility] FERRITINon 03-10-2020 Ferritin [Mass/Vol] 32 ng/mL Normal 8-252 [facility] Comment on above: Performed By: #### 1 64181, [id number], [id number], [id number] #### [facility] [address] [place] [address] Crusher Machine Operator: Fahad Cast MD HEMOon 03-10-2020 DIFF? No Normal [facility] Comment on above: Performed By: #### 1 96400, 506620, 7933521 ####[facility] Sswxhuvw57170 [place] [address] Medical Director: Fahad Cast MD Erythrocyte distribution width (RBC) [Ratio] 14.5 % Normal 11.5-14.5 [facility] Comment on above: Performed By: #### 1 05236, 432069, 5204460 ####[facility] Gjkwlntt99758 [place] [address] Medical Director: Fahad Cast MD Hematocrit (Bld) [Volume fraction] 35.8 % Low 36.0-46.0 [facility] Comment on above: Performed By: #### 1 19337, 231385, 5661335 ####[facility] Aexbzqxv19091 [place] [address] Medical Director: Fahad Cast MD Hemoglobin (Bld) [Mass/Vol] 11.7 g/dL Low 12.0-16.0 [facility] Comment on above: Performed By: #### 1 10567, 428157, 0605257 ####[facility] Zyqyijwz11379 [place] [address] Medical Director: Fahad Cast MD MCH (RBC) [Entitic mass] 29.4 pg Normal 27.0-34.0 [facility] Comment on above: Performed By: #### 1 97254, 809475, 4616662 ####[facility] Wlutfoeg93957 [place] [address] Medical Director: Fahad Cast MD MCHC (RBC) [Mass/Vol] 32.7 g/dL Normal 32.0-37.0 [facility] Comment on above: Performed By: #### 1 15762, 839407, 4733177 ####[facility] Uwxaprpm36203 [place] [address] Medical Director: Fahad Cast MD MCV (RBC) [Entitic vol] 89.8 fL Normal 80.0-100.0 [facility] Comment on above: Performed By: #### 1 61775, 267844, 5910493 ####[facility] Qzwuefkj32985 [place] [address] Medical Director: Fahad Cast MD Nucleated RBC (Bld) [#/Vol] 0 /100WBC Normal [facility] Comment on above: Performed By: #### 1 61247, 296318, 3469215 ####[facility] [address] [place], [place] [address] Medical Director: Fahad Cast MD Platelet mean volume (Bld) [Entitic vol] 6.7 fL Low 7.4-10.4 [facility] Comment on above: Performed By: #### 1 64261, 162872, 4365034 ####[facility] [address] [place] [address] Medical Director: Fahad Cast MD Platelets (Bld) [#/Vol] 252 x1000 Normal 150-450 [facility] Comment on above: Performed By: #### 1 25909, 522915, 1261773 ####[facility] Qnflbxqe33552 [place] [address] Medical Director: Fahad Cast MD RBC (Bld) [#/Vol] 3.99 x10 Low 4.20-5.40 [facility] Comment on above: Result Comment: Note : RBC morphology is normal unless otherwise stated. Evaluation performed only if differential is requested. Performed By: #### 1 31030, [id number], [id number] ####[facility] [id number] [place] [address] Medical Director: Fahad Cast MD WBC (Bld) [#/Vol] 8.3 10*3/uL Normal [facility] Comment on above: Performed By: #### 1 [id number], [id number], [id number] ####[facility] [id number] [place] [address] Medical Director: Fahad Cast MD WBC (Bld) [#/Vol] 8.3 x10 Normal 4.5-11.0 [facility] Comment on above: Performed By: #### 1 [id number], [id number], [id number] ####[facility] [id number] [place] [address] Medical Director: Fahad Cast MD History and [...] Charted Temp Oral 36.4 degC (MAR 10 14:) Heart Rate Peripheral 69 bpm (MAR 10 [...] ppx: On Eliquis OT MESA on Normal [facility] LACTATEon 03-10-2020 Lactate [Moles/Vol] 1.8 mmol/L Normal 0.4-2.0 [facility] Comment on above: Performed By: #### 1 [id number] #### [facility] [address] [place] [address] Crusher Machine Operator: Fahad Cast MD LIPon 03-10-2020 Lipase [Catalytic activity/Vol] 135 unit/L Normal 73-393 [facility] Comment on above: Performed By: #### 1 [id number], [id number], [id number] ####[facility] [id number] [place], [place] [id number] Medical Director: Fahad Cast MD MG LEVELon 03-10-2020 Magnesium [Mass/Vol] 1.9 mg/dL Normal 1.6-2.6 [facility] Comment on above: Performed By: #### 1 06458, [id number], [id number] ####[facility] [id number] [place], [place] [id number] Medical Director: Fahad Cast MD PCTon 03-10-2020 Procalcitonin <0.05 Normal [facility] Comment on above: Result Comment: INTE RP [...] or septic shock. Performed By: #### 1 [id number], [id number], [id number] #### [facility] [address] [place] [address] Crusher Machine Operator: Faahd Cast MD TROPONINon 03-10-2020 Troponin I.cardiac [Mass/Vol] ng/mL Normal 0.000-0.099 [facility] Comment on above: Result Comment: This test is a quantitative determination of cardiac troponin I. High levels of serum biotin may interfere with this test. Performed By: #### 1 [id number], [id number], [id number] ####[facility] [id number] [place] [id number] Medical Director: Fahad Cast MD XR CHEST PORTABLEon 03-10-20 20 XR CHEST PORTABLE EXAM DESCRIPTION: XR CHEST PORTABLE CLINICAL HISTORY: 74 years Female . Syncope. Atrial fibrillation. COMPARISON: None TECHNIQUE: Upright portable chest x-ray FINDINGS: Borderline heart size. No suspicious mediastinal widening. Left mediastinal calcifications. Surgical clips in the left axilla presumably related to left breast surgery. No obvious acute lung pleural bone abnormalities. Electronically signed by: Monae Hernandez MD 03/10/2020 1:58 PM PUBLIC ADDRESS SYSTEM OPERATOR Technologist: THANG JAMES Dictated By: MONAE HERNANDEZ MD Signed By: MONAE HERNANDEZ MD Signed Out: 03/10/20 14:58:26 Normal [facility] Vital Signs Date Time Vital Sign Value Performing Clinician Facility 06-02-2023 11:19-0500 Body height 165.1 cm Mundo Diaz MD Work Phone: [facility] 06-02-2023 11:19-0500 Body mass index (BMI) [Ratio] 28.12 kg/m2 Mundo Diaz MD Work Phone: [facility] 06-02-2023 11:19-0500 Body weight 76.66 kg Mundo Diaz MD Work Phone: [facility] 06-02-2023 11:19-0500 Diastolic blood pressure 68 mm[Hg] Mundo Diaz MD Work Phone: [facility] 06-02-2023 11:19-0500 Heart rate 62 /min Mundo Diaz MD Work Phone: [facility] 06-02-2023 11:19-0500 SaO2% (BldA) [Mass fraction] 99 % Mundo Diaz MD Work Phone: [facility] 06-02-2023 11:19-0500 Systolic blood pressure 106 mm[Hg] Mundo Diaz MD Work Phone: [facility] 05-14-2023 09:38-0500 Body height 165.1 cm Miko Ohara MD Work Phone: [facility] 05-14-2023 09:38-0500 Body mass index (BMI) [Ratio] 29.12 kg/m2 Miko Ohara MD Work Phone: [facility] 05-14-2023 09:38-0500 Body temperature 98.2 [degF] Miko Ohara MD Work Phone: [facility] 05-14-2023 09:38-0500 Body weight 79.38 kg Miko Ohara MD Work Phone: [facility] 10-30-2022 14:45-0400 Body height 165.1 cm Elliot Starks Other [email or web address] Other 10-30-2022 14:45-0400 Body mass index (BMI) [Ratio] 28.4 kg/m2 Elliot Starks Other [email or web address] Other 10-30-2022 14:45-0400 Body weight 77.43 kg Elliot Starks Other [email or web address] Other 10-30-2022 14:45-0400 Diastolic blood pressure 66 mm[Hg] Elliot Starks Other [email or web address] Other 10-30-2022 14:45-0400 Systolic blood pressure 123 mm[Hg] Elliot Starks Other [email or web address] Other 06-04-2022 11:30-0500 Body height 165.1 cm Elliot Starks Other [email or web address] Other 06-04-2022 11:30-0500 Body mass index (BMI) [Ratio] 28.29 kg/m2 Elliot Starks Other [email or web address] Other 06-04-2022 11:30-0500 Body weight 77.11 kg Elliot Starks Other [email or web address] Other 06-04-2022 11:30-0500 Diastolic blood pressure 64 mm[Hg] Elliot Starks Other [email or web address] Other 06-04-2022 11:30-0500 SaO2% (BldA) [Mass fraction] 99 % Elliot Starks Other [email or web address] Other 06-04-2022 11:30-0500 Systolic blood pressure 104 mm[Hg] Elliot Starks Other [email or web address] Other Encounters Encounter Date Encounter Type Care Provider Facility Start: 06-02-2023 End: 06-02-2023 Office outpatient visit 25 minutes Mundo Diaz MD Work Phone: [facility] Comment on above: Paroxysmal atrial fi brillation (CMS-HCC) (Primary Dx); Primary hypertension; Chronic coronary artery disease Start: 06-01-2023 ambulatory ELLIOT STARKS [facility] Start: 05-28-2023 ambulatory [facility] Start: 05-27-2023 ambulatory Alfreda Miller Facility:[facility] Start: 05-25-2023 End: 05-26-2023 ambulatory Daisy Liz MD [facility] Start: 05-18-2023 End: 05-19-2023 ambulatory Daisy Liz MD Facility:[facility] Start: 05-14-2023 ambulatory MIKO OHARA [facility] Start: 05-14-2023 ambulatory MIKO OHARA [facility] Start: 05-14-2023 End: 05-14-2023 Office outpatient new 30 minutes Miko Ohara MD Work Phone: [facility] Orthopedics Comment on above: Pain in prosthetic j oint, initial encounter (Primary Dx); Primary osteoarthritis of right hip Start: 05-14-2023 End: 05-14-2023 Subsequent hospital visit by physician Miko Ohara MD Work Phone: [facility] Start: 03-30-2023 (Televisit) [facility]visit [facility] Start: 03-30-2023 End: 03-30-2023 ambulatory Elliot Starks Other [email or web address] Other Start: 02-11-2023 End: 02-12-2023 ambulatory Alfreda Miller Facility:[facility] Start: 02-11-2023 End: 02-11-2023 Patient encounter procedure Alfreda Miller [facility] Start: 12-29-2022 Preoperative state Mundo franks MD Work Phone: [facility] Start: 11-17-2022 End: 11-17-2022 ambulatory Elliot Starks Other [email or web address] Other Start: 11-17-2022 Telephone encounter Elliot Starks [facility] Start: 11-06-2022 ambulatory Alfreda Miller Facility:[facility] Start: 10-30-2022 End: 10-30-2022 ambulatory Elliot Starks Other [email or web address] Other Start: 10-30-2022 Office outpatient vi sit 15 minutes Elliot Starks [facility] Start: 10-29-2022 End: 10-29-2022 ambulatory Elliot Starks Other [email or web address] Other Start: 10-29-2022 Telephone encounter Elliot Starks [facility] Start: 10-27-2022 Nursing evaluation o f patient and report Elliot Starks [facility] Start: 10-27-2022 End: 10-27-2022 ambulatory Elliot Starks [email or web address] Other Start: 10-27-2022 End: 10-27-2022 Departed Referred MD Elliot Starks Work Phone: [facility] Work Phone: Start: 09-11-2022 Telephone encounter Matt Duron Hematology/Oncology Comment on above: Orders Start: 08-11-2022 End: 08-11-2022 ambulatory Elliot Starks Other [email or web address] Other Start: 08-11-2022 Nursing evaluation o f patient and report Elliot Starks [facility] Start: 07-17-2022 (Televisit) Televisit Elliot Starks [facility] Start: 07-17-2022 End: 07-17-2022 ambulatory Elliot Starks Other [email or web address] Other Start: 06-23-2022 End: 06-23-2022 ambulatory Elliot Starks Other [email or web address] Other Start: 06-23-2022 Nursing evaluation o f patient and report Elliot Starks [facility] Start: 06-09-2022 End: 06-09-[address] ELLIOT STARKS Facility:[facility] Start: 06-06-2022 End: 06-06-2022 ambulatory Elliot Starks Other [email or web address] Other Start: 06-06-2022 Telephone encounter Elliot Starks [facility] Start: 06-04-2022 End: 06-04-2022 ambulatory Elliot Starks Other [email or web address] Other Start: 06-04-2022 Office outpatient vi sit 25 minutes Elliot Starks [facility] Start: 05-21-2022 End: 05-21-2022 ambulatory Elliot Starks Other [email or web address] Other Start: 05-21-2022 Telephone encounter Elliot Starks [facility] Start: 04-26-2022 End: 04-26-[address] ELLIOT STARKS Facility:[facility] Start: 04-14-2022 End: 04-14-[address] ELLIOT STARKS Facility:[facility] Start: 12-18-2021 End: 12-18-2021 ambulatory Melchor Rivera Facility:[facility] Start: 06-02-2022 Telephone encounter Andrew black MD Work Phone: Hematology/Oncology Comment on above: Lab Orders Start: 09-26-2021 Telephone encounter Elton jimenez RN Work Phone: Hematology/Oncology Comment on above: Radiology Mammogram Start: 12-02-2016 End: 12-03-2016 Ambulatory DEFAULT PHYSICIAN Facility:[facility] Procedures Date Procedure Procedure Detail Performing Clinician Start: 06-02-2023 Ecg routine ecg w/le ast 12 lds w/i&r Mundo Diaz MD Work Phone: Start: 05-14-2023 Heavy metal quantiat david each tiffany Ohara MD Work Phone: Start: 09-25-2020 Mammography Elton jiemnez RN Work Phone: Start: 10-07-2019 Adult depression scr eening assessment Elton Dominguez RN Work Phone: Start: 04-08-2017 Colonoscopy Mundo short MD Work Phone: Start: 01-01-2017 Screening mammography Deric Starks Other Start: 02-01-2013 General examination of patient Elliot Starks Other Appendectomy Alfreda Lue Bilateral cataracts (disorder) Alfreda Lue Cardiac ablation sys tem (physical object) Alfreda Lue Cholecystectomy Alfreda Lue Insertion of hip prosthesis Alfreda Lue Lumpectomy of left breast Ka thy Lue Rotator cuff includi ng muscles and tendons (body structure) Alfreda Lue Screening for malign ant neoplasm of breast Elliot Starks Other Total abdominal hysterectomy Alfreda Lue Plan of Treatment Date Care Activity Detail Author Start: 06-02-2024 Adult BMI Screening Adult BMI Screen ing [facility] Start: 06-02-2024 Tobacco Screening Tobacco Screening [facility] Start: 10-09-2023 DIABETES SCREEN DIABETES SCREEN [facility] Start: 05-28-2023 End: 05-28-2023 Patient encounter procedure 05/28/2023 11:00 AM EST Office Visit [facility] [address] [place] [address] Antelmo Richey, DO [address] [place] [address] [facility] Start: 05-14-2023 End: 05-14-2024 MR Hip - right WO contrast MRI HIP RIGHT WITHOUT CONTRAST Imaging Routine Pain in prosthetic joint, initial encounter Expected: 05/14/2023, Expires: 05/14/2024 [facility] Comment on above: Expected: 05/14/2023 , Expires: 05/14/2024 Start: 01-02-2023 COVID-19 VACCINE ( season) COVID-19 VACCINE ( season) [facility] Start: 01-02-2023 Influenza vaccination INFLUENZA (Sea son Ended) [facility] Start: 10-27-2022 Bacteria identified in Urine by Culture [facility] Start: 05-04-2022 ADVANCE DIRECTIVE DISCUSSION ADVANCE DIRECTIVE DISCUSSION [facility] Start: 05-04-2022 DEPRESSION ASSESSMENT DEPRESSION ASS ESSMENT [facility] Start: 04-08-2022 Screening for malign ant neoplasm of colon Colonoscopy [facility] Start: 01-02-2022 Influenza vaccination INFLUENZA (Sea son Ended) [facility] Start: 10-07-2021 End: 12-07-2021 Cancer Ag 27-29 [Units/volume] in Serum or Plasma CA 27.29 BLOOD Lab Routine Malignant neoplasm of upper-outer quadrant of left breast in female, estrogen receptor positive (HCC) Expected: 10/07/2021, Expires: 12/07/2021 [facility] Work Phone: Comment on above: Expected: 10/07/2021 , Expires: 12/07/2021 Start: 10-07-2021 End: 12-07-2021 CBC W Auto Differential panel - Blood CBC + DIFF Lab Routine Malignant neoplasm of upper-outer quadrant of left breast in female, estrogen receptor positive (HCC) Expected: 10/07/2021, Expires: 12/07/2021 [facility] Work Phone: Comment on above: Expected: 10/07/2021 , Expires: 12/07/2021 Start: 10-07-2021 End: 12-07-2021 Comprehensive metabolic 2000 panel - Serum or Plasma COMP METABOLIC PANEL Lab Routine Malignant neoplasm of upper-outer quadrant of left breast in female, estrogen receptor positive (HCC) Expected: 10/07/2021, Expires: 12/07/2021 [facility] Work Phone: Comment on above: Expected: 10/07/2021 , Expires: 12/07/2021 Start: 09-25-2021 Mammography MAMMOGRAM [facility] Start: 05-04-2021 ADVANCE DIRECTIVE DISCUSSION ADVANCE DIRECTIVE DISCUSSION [facility] Start: 11-17-2020 COVID-19 VACCINE (3 - Booster for Pfizer series) COVID-19 VACCINE (3 - Booster for Pfizer series) [facility] Start: 10-06-2020 Adult depression screening assessment DEPRESSION SCREENING [facility] Start: 08-15-2020 COVID-19 VACCINE (3 - Booster for Pfizer series) COVID-19 VACCINE (3 - Booster for Pfizer series) [facility] Start: 01-05-2019 PNEUMOCOCCAL: 65+ (2 - PCV) PNEUMOCOCCAL: 65+ (2 - PCV) [facility] Start: 07-07-2012 BONE DENSITY BONE DENSITY [facility] Start: 07-07-2012 Fall Risk Screening Fall Risk Screen ing [facility] Start: 07-07-1997 Administration of varicella zoster vaccine Zoster (Shingles) Vaccine (1 of 2) [facility] Start: 07-07-1997 SHINGRIX VACCINE (1 of 2) SHINGRIX VACCINE (1 of 2) [facility] Start: 07-07-1997 Zoster vaccine hzv l david for subcutaneous use ZOSTER (SHINGLES) VACCINE (1 of 2) [facility] Start: 07-07-1992 COLOGUARD (FIT-DNA) COLOGUARD (FIT-D NA) [facility] Start: 07-07-1992 Colonoscopy COLONOSCOPY [facility] Start: 07-07-1992 COLORECTAL CANCER SCREENING COLORECTAL CANCER SCREENING [facility] Start: 07-07-[address] COLONOGRAPHY [facility] Start: 07-07-1992 FECAL OCCULT BLOOD FECAL OCCULT BLOO D [facility] Start: 07-07-1992 LIPID SCREEN LIPID SCREEN [facility] Start: 07-07-1992 Screening for malign ant neoplasm of colon COLORECTAL CANCER SCREENING DISCUSSION [facility] Start: 07-07-1992 [facility] Start: 1987 Lipid panel LIPID SCREENING [facility] Start: 1987 Screening for malign ant neoplasm of breast MAMMOGRAM SCREENING DISCUSSION [facility] Start: 07-07-1968 Screening for malign ant neoplasm of cervix CERVICAL CANCER SCREENING DISCUSSION [facility] Start: 07-07-1966 DTaP,Tdap and Td Vaccines (1 - Tdap) DTaP,Tdap and Td Vaccines (1 - Tdap) [facility] Start: 07-07-1966 Third diphtheria, tetanus and acellular pertussis (DTaP) vaccination TDAP (ADULT) [facility] Start: 07-07-1966 Urine microalbumin profile DTAP,TDAP,TD (1 - Tdap) [facility] Start: 07-07-1965 Adult BMI Follow Up Plan Adult BMI F ollow Up Plan [facility] Start: 07-07-1965 HEPATITIS C SCREENING HEPATITIS C SC REENING [facility] Start: 1959 Depression Screening Depression Scre ening [facility] Start: 07-07-1953 PNEUMOCOCCAL: 65+ (1 - PCV) PNEUMOCOCCAL: 65+ (1 - PCV) [facility] Start: 1947 Hepatitis C screening HEPATITI S C VIRUS SCREENING [facility] Start: 1947 Medicare Annual Well ness Visit Medicare Annual Wellness Visit [facility] Start: 1947 Potassium [Moles/vol ume] in Serum or Plasma POTASSIUM [facility] Start: 1947 Screening for osteoporosis DEXA SCAN DISCUSSION [facility] Start: 1947 Tetanus vaccination TETANUS [facility] End: 10-26-2022 AUGUSTINA SCREENING W YAW AUGUSTINA SCREENING W YAW Radiology Routine Encounter for screening mammogram for malignant neoplasm of breast 1 Occurrences starting 09/26/2021 until 10/26/2022 [facility] Work Phone: Comment on above: 1 Occurrences starti ng 09/26/2021 until 10/26/2022 End: 10-11-2023 AUGUSTINA SCREENING W YAW AUGUSTINA SCREENING W YAW Radiology Routine Encounter for screening mammogram for malignant neoplasm of breast 1 Occurrences starting 09/11/2022 until 10/11/2023 [facility] Work Phone: Comment on above: 1 Occurrences starti ng 09/11/2022 until 10/11/2023 XR Pelvis and Hip - right Views XR HIP WITH PELVIS RIGHT Imaging Routine Primary osteoarthritis of right hip 05/14/2023 9:20 AM [facility] [[email or web address] Work Phone: [facility] Immunizations Immunization Date Immunization Notes Care Provider [facility]-10-2023 influenza virus vaccine, unspecified formulation Alfreda Lue [facility] 02-01-2022 influenza virus vaccine, unspecified formulation Alfreda Lue [facility] 08-13-2021 SARS-CoV-2 mRNA (bytpbfdcjrl-umnq-zfukk se) vaccine Alfreda Lue [facility] 01-29-2021 SARS-CoV-2 (COVID-19 ) mRNA BNT-162b2 vax Alfreda Lue [facility] Comment on above: Result Comment: 2022: [id number] 06-20-2020 COVID-19 vaccine, ag e 12+ yr ([email or web address] - PURPLE TOP) Elton Dominguez RN Work Phone: [facility] 05-28-2020 SARS-CoV-2 (COVID-19 ) mRNA BNT-162b2 vax Alfreda Lue [facility] 05-18-2020 COVID-19 vaccine, ag e 12+ yr ([employer] - PURPLE TOP) Elton Dominguez RN Work Phone: [facility] 01-27-2020 influenza virus vaccine, split virus (incl. purified surface antigen) Elliot Starks Other [email or web address] Other 01-27-2020 influenza virus vaccine, unspecified formulation Alfreda Lue [facility] 01-20-2019 influenza virus vaccine, unspecified formulation Alfreda Lue [facility] 01-20-2019 influenza, high dose seasonal, preservative-free Elton Dominguez RN Work Phone: [facility] 03-09-2018 influenza virus vaccine, unspecified formulation Alfreda Lue [facility] 01-05-2018 influenza virus vaccine, split virus (incl. purified surface antigen) Elliot Starks Other [email or web address] Other 01-05-2018 influenza virus vaccine, unspecified formulation Alfreda Lue [facility] 01-05-2018 influenza, high dose seasonal, preservative-free Elton Dominguez RN Work Phone: [facility] 01-05-2018 pneumococcal polysaccharide vaccine, 23 valent Elton Dominguez RN Work Phone: [facility] 02-25-2017 influenza virus vaccine, unspecified formulation Alfreda Lue [facility] 02-17-2017 pneumococcal polysaccharide vaccine, 23 valent Alfreda Lue [facility] 02-05-2017 influenza virus vaccine, split virus (incl. purified surface antigen) Elliot Starks Other [email or web address] Other 02-05-2017 influenza virus vaccine, unspecified formulation Alfreda Miller [facility] 02-05-2017 pneumococcal conjuga te vaccine, 13 valent Alfreda Miller [facility] 02-01-2002 pneumococcal polysaccharide vaccine, 23 valent Elliot Starks Other [email or web address] Other Payers Date Payer Category Payer Private Health Insurance 2022 Self-pay 2014 Medicare [employer] MEDICARE A ETNA MEDICARE PPO [id number] 2014-Present [phone] [address] [place] [address] PPO [id number] 2014 Medicare [id number] 1959 Medicare [id number] 1945 Unknown [id number] 1947 Unknown [id number] 2.16.840.1.145646.3.579.2.5 1947 Unknown [id number] 2.16.840.1.629211.3.579.2.5 1947 Unknown [id number] 2.16.840.1.490356.3.579.2.7 1947 Unknown [id number] 2.16.840.1.511919.3.579.2.7 1947 Unknown [id number] 2.16.840.1.319017.3.579.2.7 18 1947 Unknown [id number] 2.16.840.1.846625.3.579.2.1 96 1947 Unknown [id number] 2.16.840.1.582470.3.579.2.1 96 1947 Unknown [id number] 2.16.840.1.971500.3.579.2.9 83 1947 Unknown [id number] 2.16.840.1.947673.3.579.2.9 83 1947 Unknown [id number] 2.16.840.1.103808.3.579.2.9 83 1947 Unknown [id number] 2.16.840.1.754040.3.579.2.9 83 1947 Unknown [id number] [id number] 83 Private Health Insurance [employer] [facility] [id number] Unknown Unknown [id number] 31 Social History Date Type Detail Facility Start: 12-03-2015 End: 03-31-2022 Tobacco smoking status NHIS Ex-smoker [facility] End: 12-05-1990 History of tobacco use Current smoker [facility] Start: 12-03-2015 End: 05-15-2020 Cigarettes smoked current (pack per day) - Reported [address] [facility] Start: 12-03-2015 End: 03-31-2022 Tobacco use and exposure Smokeless tobacco non-user [facility] Start: 10-08-2020 End: 06-02-2023 Alcohol intake Current drinker of alcohol (finding) [facility] Start: 1945 Sex Assigned At Not on file C [facility] Start: 05-15-2020 End: 05-14-2023 Sex Assigned At [facility] End: 12-05-1990 History of tobacco use Cigarette Smoker [facility] Start: 1945 Sex Assigned At Female F [facility] Tobacco smoking status Never [facility] Start: 05-14-2023 Tobacco smoking stat us NHIS Never smoked tobacco [facility] Start: 03-31-2022 Tobacco Comment quit in 1989 [facility] Start: 03-19-2017 Alcohol Comment social [facility] Start: 05-09-2018 Gender identity Identifies as female gender (finding) [facility] Functional Status Date Assessment Result Facility 02-11-2023 Functional Status N/A [facility] Clinical Notes 09-26-2021 to 06-02-2023 Mundo Diaz MD - 06/02/2023 2:30 PM ESTSmally Boudreaux - 05/14/2023 9:30 AM Joseph Ohara MD - 05/14/2023 9:30 AM EST Note Date & Type Note Facility 06-02-2023 History of Present illness Narrative Bettie Burns Date of visit: 06/02/2023 Date of : 1945 Age: 77 y.o. Patient Active Problem List Diagnosis Paroxysmal atrial fibrillation ([facility]-HCC) Hypertension SOB (shortness of breath) Dyspnea Palpitations Abnormal findings diagnostic imaging of heart and coronary circulation Preoperative clearance Allergies Allergen Reactions Adhesive Other reaction(s): Blister Morphine Hives Penicillin G Benzathin,Procain Rofecoxib Sulfadiazine Zolpidem Codeine Itching and Rash With all narcotics except Demerol Levaquin [Levofloxacin] Itching and Rash Lioresal [Baclofen] Itching and Rash Penicillins Rash and Hives Ultram [Tramadol] Itching Vicodin [Hydrocodone-Acetaminophen] Itching and Rash Current Outpatient Medications Medication Sig Dispense Refill atenoloL (TENORMIN) 50 mg tablet Take 1.5 tablets (75 mg total) by mouth in the morning. 135 tablet 3 baclofen (LIORESAL) 20 mg tablet Take 1 tablet (20 mg total) by mouth 3 (three) times a day. PRN ELIQUIS 5 mg tablet TAKE 1 TABLET TWICE A DAY 180 tablet 3 hydroCHLOROthiazide (HYDRODIURIL) 25 mg tablet TAKE 1 TABLET DAILY 90 tablet 2 lisinopriL (PRINIVIL,ZESTRIL) 20 mg tablet Take 1 tablet (20 mg total) by mouth in the morning. naproxen sodium (ALEVE) 220 mg tablet Take 1 tablet (220 mg total) by mouth as needed for pain. NON FORMULARY Med Name:Neuveria vitamin 1 qd omeprazole (PriLOSEC) 20 mg capsule Take 1 capsule (20 mg total) by mouth in the morning. potassium chloride (K-TAB,KLOR-CON) 10 MEQ CR tablet Take 1 tablet (10 mEq total) by mouth in the morning. 30 tablet 6 temazepam (RESTORIL) 30 mg capsule Take 1 capsule (30 mg total) by mouth nightly. trospium (SANCTURA) 20 mg tablet Take 1 tablet (20 mg total) by mouth in the morning and 1 tablet (20 mg total) before bedtime. ferrous sulfate (FeroSuL) 325 (65 FE) mg tablet Take 1 tablet (325 mg total) by mouth daily with breakfast. ferrous sulfate 325 (65 FE) mg tablet Take 1 tablet (325 mg total) by mouth in the morning and 1 tablet (325 mg total) in the evening. Take with meals. hydroCHLOROthiazide (HYDRODIURIL) 25 mg tablet Take 1 tablet (25 mg total) by mouth daily. Please have labs drawn for additional refills 90 tablet 0 No current facility-administered medications for this visit. Chief Complaint Patient presents with Follow-up est pt concerns of afib per smart watch wants seen sooner. sched w/pt pt will arrive at 11:30 History of Present Illness 77-year-old female with history of hypertension, nonobstructive coronary artery disease, paroxysmal atrial fibrillation with prior cardiac ablation for atrial fibrillation in 2019. She is here for follow-up visit. She is noted palpitation off and on for the last few weeks. ECG in the office showed atrial fibrillation with controlled ventricular response. Prior office EKG on 02/18/2023 showed normal sinus rhythm. Blood pressure is well controlled she reports occasional shortness of breath this she does feel palpitations sometimes gets sweaty. No syncope and no bleeding issues. Past Medical History: Diagnosis Date A-fib [place] hx of Arrhythmia 12/2016 ATRIAL FIBRILLATION Arthritis Breast cancer ([facility]) 11/14/2015 LEFT COVID-19 03/2020 History of bleeding ulcers Hypertension Migraines Pneumonia d/t covid Prolonged emergence from general anesthesia Visual impairment glasses No data recorded No data recorded No data recorded Past Surgical History: Procedure Laterality Date ABLATION OF DYSRHYTHMIC FOCUS Right nerve ablation, L4 and L5 Afib ablation with SHANICE - CRYO, Rhythmia, ICE N/A 09/28/2018 Performed by Amber Quiñonez MD at [facility] AT [facility] (EP) ARTHROSCOPY REPAIR ROTATOR CUFF SHOULDER Right 05/16/2020 Performed by Melchor Rivera DO at [facility] ARTHROSCOPY SHOULDER Right 05/16/2020 Performed by Melchor Rivera DO at [facility] BREAST BIOPSY Left 2016 BREAST LUMPECTOMY Left 11/14/2015 WITH RADIATION BREAST SURGERY Left 2012 lumpectomy CATARACT EXTRACTION CHOLECYSTECTOMY COLONOSCOPY Coronary angiogram and left ventricular gram/pressure N/A 08/08/2021 Performed by Bertram Lal MD at [facility] CARDIAC CATH LABS EYE SURGERY lids lifted HIP SURGERY Right 12/16/2021 HYSTERECTOMY OOPHORECTOMY SHOULDER ARTHROSCOPY Bilateral Family History Problem Relation Age of Onset Cancer Mother Cancer Father Parkinsonism Sister Arrhythmia Sister Breast cancer Niece 45 Social History Socioeconomic History Marital status: Spouse name: Not on file Number of children: Not on file Years of education: Not on file Highest education level: Not on file Occupational History Not on file Tobacco Use Smoking status: Former Types: Cigarettes Quit date: 05/06/1989 Years since quittin.0 Smokeless tobacco: Never Tobacco comments: quit in 1989 Vaping Use Vaping Use: Never used Substance and Sexual Activity Alcohol use: Yes Comment: social Drug use: No Sexual activity: Defer Other Topics Concern Caffeine Use Yes Comment: 05/05 cup Social History Narrative Not on file Social Determinants of Health Financial Resource Strain: Not on file Food Insecurity: No Food Insecurity (06/02/2023) Hunger Screening Food Insecurity - Worry: Never True Food Insecurity - Inability: Never True Transportation Needs: Not on file Physical Activity: Not on file Stress: Not on file Social Connections: Not on file Interpersonal Safety: Not on file Housing Instability: Not on file Review of Systems Review of Systems Constitutional: Positive for malaise/fatigue. Respiratory: Positive for shortness of breath. Musculoskeletal: Positive for back pain. CARDIOVASCULAR: Please review HPI. Physical Examination General appearance: Alert, oriented and cooperative. In no acute distress. Skin: Warm and dry to touch. Head: Normocephalic, without obvious abnormality, atraumatic. Ears, Nose, Mouth, Throat: Throat clear without erythema or exudate. Dentition intact. Eyes: Conjunctivae unremarkable, EOM intact. Neck: No JVD, No carotid bruit. Neck supple, trachea midline. Respiratory: Clear to auscultation bilaterally, no use of accessory muscles. Cardiovascular: Irregular with normal S1 and S2 with no murmurs. Gastrointestinal: Soft, non-tender. Bowel sounds normal. Musculoskeletal: No peripheral edema. Neurologic: Oriented to time, person and place, affect appropriate. No focal/major motor defects noted. Psychiatric: Appropriate mood, memory and judgement. VITAL SIGNS: BP 106/68 (BP Site: Left Arm, BP Postition: Sitting) Pulse 62 Ht 165.1 cm (5' 5 ) Wt 76.7 kg (169 lb) SpO2 99% BMI 28.12 kg/m Orders Placed or Reconciled This Encounter Medications trospium (SANCTURA) 20 mg tablet Sig: Take 1 tablet (20 mg total) by mouth in the morning and 1 tablet (20 mg total) before bedtime. baclofen (LIORESAL) 20 mg tablet Sig: Take 1 tablet (20 mg total) by mouth 3 (three) times a day. PRN There are no discontinued medications. IMPRESSIONS/PLAN Paroxysmal atrial fibrillation Currently in atrial fibrillation with heart rate up to 78. She is symptomatic she does feel these palpitations however on Eliquis and atenolol 75 mg daily. Prior history of AFib ablation in 2019. I asked her to keep a watch on the symptoms if they worsen then we could consider flecainide. 2. Hypertension Controlled on medications 3. Nonobstructive coronary artery disease Stable F/u 3 months TODAYS ORDERS No orders of the defined types were placed in this encounter. FOLLOW UP No follow-ups on file. PCP: ELLIOT STARKS MD Referring Physician: Elliot Starks MD [address] [place] [address] documented in this encounter [facility] 05-14-2023 History of Present illness Narrative Ortho Nurse - Patient Intake Room#: 1 --- HARMONICA MAKER R Hip pain, had R THR in [...] 05/14/2023 9:44 AM Patient: Bettie Burns MR#: [id number] : 1945 Age: 77 y.o. Referring Physician: [...] [x]cane, []bracing Are you followed by a family services specialist? [x] [] Name: Dr. Waleska Zhu - [facility] Are you followed by pain management? [x] [] Name: Dr. Cedeno - Pain Mgmt @ [facility] Are you followed by any other specialists? [x] [] Name: Oncolgist - Dr. Choi [facility] Urologist - Dr. Christian Bourne Outpatient Medications Prior to Visit Medication Sig [...] abductor muscles as well as ESR/CRP and [place] and Chromium labs today. I will see [...] APPENDECTOMY BREAST LUMPECTOMY FOOT SURGERY HEART CATHETERIZATION OK ENDOMETRIAL CRYOABLATION REMOVAL BILIARY DUCT/GALLBLADDER CALCULI/DEBRIS PERCUTANEOUS [...] daily., Disp: , Rfl: omeprazole [address], Take 1 capsule by mouth daily., Disp: [...] Oxycodone Penicillins Tramadol documented in this encounter [facility] 03-30-2023 Evaluation note Encounter Date Diagnosis Assessment [...] verbalizes understanding and agrees with tx plan. [email or web address] Other 10-11-2023 NoteChief Complaint Referral *Frequent UTI [...] states that she was put on a long term care administrator abx which has helped a lot. Pt [...] a hematuria workup including a scope, at [facility]. Occasional visible blood w/UTI. UA today shows moderate blood. Discussed doing a hematuria workup if the pt would like to. Pt states that she is not worried aboutthis and does not see the need to have t (more content not included)...[facility]Comment on [facility]:Result Comment: Electronically Signed By: Alfreda Miller MD\.br\Date and Time Signed: 02/11/23 12:13EDT\.br\Electronically Co-Signed By: Karlee Ramos\.br\Date and Time Co-Signed: 02/11/23 11:16 [id number] Hospital Discharge instructions Patient Education 02/11/2023 11:16:08 [...] provider. Document Revised: 08/29/2021 Document Reviewed: 08/29/2021 [employer] Patient Education 2022 [employer]. Follow Up Care 11/06/2022 15:31:52 With:Paul VILLEGAS, Alfreda Palacios, CARLYNL, URO Address: When:Within 3 Month(s) [facility] Jason 07-17-2023 Evaluation note* Encounter Date Diagnosis Assessment Notes Treatment Notes Treatment Clinical Notes Nov, Dysuria (ICD-10 - R30.0) [email or web address] Other 06-29-2023 Evaluation note* Encounter Date Diagnosis Assessment Notes Treatment Notes Treatment Clinical Notes Oct, Frequent UTI (ICD-10 - N39.0) Pt requests Urology referral. Discussed also getting CT to move along process. Oct, Dyshidrotic eczema (ICD-10 - L30.1) Will treat with steroid cream prn [email or web address] Other 06-26-2023 Evaluation note* Encounter Date Diagnosis Assessment Notes Treatment Notes Treatment Clinical Notes Oct, Dysuria (ICD-10 - R30.0) [email or web address] Other 05-11-2023 Miscellaneous Notes* Telephone Encounter - Matt Adams RN - 09/11/2022 11:43 AM EDT Order faxed to [facility] and pt is aware. Matt Adams RN * Telephone Encounter - Matt Adams RN - 09/11/2022 9:51 AM EDT Pt called to request yearly Mammogram order I have pended order as previously completed Pt requests to fax to Nori Lema [phone] BRM/HM: please review and sign if agreeable Matt Adams RN [facility]* Encounter Date Diagnosis Assessment Notes Treatment Notes Treatment Clinical Notes Aug, Dysuria (ICD-10 - R30.0) [email or web address] Other 03-16-2023 Evaluation note* Encounter Date Diagnosis [...] N32.81) chronic and improved on present med [email or web address] Other 02-20-2023 Evaluation note* Encounter Date Diagnosis Assessment Notes Treatment Notes Treatment Clinical Notes Jun, Dysuria (ICD-10 - R30.0) [email or web address] Other 02-03-2023 Evaluation note* Encounter Date Diagnosis Assessment Notes Treatment Notes Treatment Clinical Notes Jun, OAB (overactive bladder) (ICD-10 - N32.81) [email or web address] Other 02-01-2023 Evaluation note* Encounter Date Diagnosis Assessment Notes Treatment Notes Treatment Clinical Notes Jun, OAB (overactive bladder) (ICD-10 - N32.81) Patient request to try new medication reviewed side effect profile. Patient declines urology or [facility] referral at this time. Jun, Essential hypertension (ICD-10 - I10) reviewed and updated medications she will follow-up with cardiology in Jun, Hypokalemia (ICD-10 - E87.6) Reviewed and updated medications. Discussed foods that are high in potassium Jun, Right lumbar pain (ICD-10 - M54.50) Follow-up with Dr. Rivera as scheduled in June. She does have limping with her gait. [email or web address] Other 05-26-2022 Miscellaneous Notes* Telephone Encounter - Andrew Choi MD - 09/26/2021 5:13 PM EDT Okay to change to screening mammogram. Order signed. ASIYA Ford * Telephone Encounter - Elton Dominguez RN - 09/26/2021 2:33 PM EDT Pt scheduled for diagnostic mamm tomorrow @ [facility]. Hospital calls to ask if this could be changed to a screening mammogram since the pt is greater than 2 years from diagnosis? Elton Dominguez RN [facility] Future Appointments Appointment Date:05/27/2023 08:45:00 AM Scheduled Provider:Paul VILLEGAS, Alfreda Palacios Location:[facility] Appointment Type:URO Office Visit [facility] evaluation note* Diagnosis Encounter for screening mammogram for malignant neoplasm of breast- Primary Other screening mammogram documented in this encounter [facility] note* Diagnosis Malignant neoplasm of upper-outer quadrant of left breast in female, estrogen receptor positive (HCC)- Primary documented in this encounter [facility] noteNo InformationNort [facility] Other Evaluation note* Diagnosis Encounter for screening mammogram for malignant neoplasm of breast- Primary Other screening mammogram documented in this encounter [facility] noteNo assessment information [facility] Work Phone: Evaluation note* Diagnosis Pain in prosthetic joint, initial encounter- Primary Primary osteoarthritis of right hip Primary localized osteoarthrosis, pelvic region and thigh [facility] Diagnosis Paroxysmal atrial fibrillation (CMS-HCC)- Primary Atrial fibrillation Primary hypertension Unspecified essential hypertension Chronic coronary artery disease Coronary atherosclerosis of unspecified type of vessel, [place] or graft documented in this encounter [facility] SystemHistory general Narrative - Reported* Type Description [...] replacement 12/16/2021 Hospitalization History SEE SURGICAL HX [email or web address] Other Hospital course Narrative No data available for this section [facility] [place] InstructionsNot on filedocumented in this encounter [facility] SystemProgress note No data available for this section [facility] reason for referral (narrative)* Diagnostic Procedure Only (Routine) - Pending Review Specialty Diagnoses / Procedures Referred By Juan wren Referred To Contact [facility] Diagnoses Encounter for screening mammogram for malignant neoplasm of breast Procedures AUGUSTINA SCREENING W YAW SCREENING DIGITAL BREAST TOMOSYNTHESIS BI SCREENING MAMMOGRAPHY BI 2-VIEW BREAST INC Andrew Miguel MD [address] [place] [address] [place] [address] [facility] [place] [address] Referral ID Status Reason Start Date Expiration Date Visits Requested Visits Authorized [id number] Pending Review Auto-Generat ed Referral 09/26/2021 10/26/2022 [address] [facility] (narrative)* Diagnostic Procedure Only (Routine) - Pending Review Specialty Diagnoses / Procedures Referred By Juan wren Referred To Contact [facility] Diagnoses Encounter for screening mammogram for malignant neoplasm of breast Procedures AUGUSTINA SCREENING W YAW SCREENING DIGITAL BREAST TOMOSYNTHESIS BI SCREENING MAMMOGRAPHY BI 2-VIEW BREAST INC Andrew Miguel MD [address] [place] [address] [place] [address] [facility] [place] [address] Referral ID Status Reason Start Date Expiration Date Visits Requested Visits Authorized [id number] Pending Review Auto-Generat ed Referral 09/11/2022 10/11/2023 1 1 [facility] Summary Purpose Family History No Family History Records FoundNo Family History Records FoundNo Family History Records FoundNo Family History Records FoundNo Family History Records FoundNo Family History Records Found No data available for this section No Family History Records FoundNo Family History Records FoundNo Family History Records FoundNo Family History Records Found Advance Directives Documents on File Type Date Recorded 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 Living Will 05/21/2020 9:37 AM Durable Power of Principal Technologist 05/21/2020 9:27 AM Durable Power of Principal Technologist 05/16/2020 6:05 AM Living Will 05/16/2020 6:04 AM Reason for Referral Specialty Diagnoses / Procedures Referred By Contac t Referred To Contact Diagnoses Pain in prosthetic joint, initial encounter Procedures MRI HIP RIGHT WITHOUT CONTRAST OK MRI LOWER EXTREM JT, W/O CONTRAST Miko Ohara MD [address] [place] [address] Referral ID Status Reason Start Date Expiration Date V isits Requested Visits Authorized [id number] New Request 05/14/2023 06/07/2024 1 1 Specialty Diagnoses / Procedures Referred By Contac t Referred To Contact Diagnoses Pain in prosthetic joint, initial encounter Procedures COBALT AND CHROMIUM,WB Miko Ohara MD [address] [place] [id number] Referral ID Status Reason Start Date Expiration Date V isits Requested Visits Authorized [id number] New Request 05/14/2023 06/07/2024 1 1 Specialty Diagnoses / Procedures Referred By Contac t Referred To Contact Diagnoses Primary osteoarthritis of right hip Procedures XR HIP WITH PELVIS RIGHT Miko Ohara MD [address] [place] [id number] Referral ID Status Reason Start Date Expiration Date V isits Requested Visits Authorized [id number] New Request 05/06/2023 05/30/2024 1 1 Reason *FU 11/12 [place] office Diagnosis 1 Frequent UTI (N39.0) Referral Organization [facility] Referring Provider First Name Elliot Referring Provider Last Name Raudel Referring Provider Specialty Family [facility] Referred Organization [facility] Referred Provider ALFREDA MILLER Referred Address [address] [place], [place],[address] Referred Provider Specialty Urology Referral Priority Routine General Notes Victoria Lisa 11:03:05 AM >received today, notes attached, along with labs and ins, waiting for notes to be locked before faxing Victoria Lisa 11/05/2022 02:44:05 PM >referral faxed Additional Source Comments INFORMATION SOURCE (unrecogn ized section and content) DATE CREATED AUTHOR 10/28/2017 [facility] DATE CREATED AUTHOR AUTHOR'S ORGANIZ ATION 03/21/2020 [facility] DATE CREATED AUTHOR AUTHOR'S ORGANIZ ATION 09/13/2021 [facility] dical Specialist DATE CREATED AUTHOR AUTHOR'S ORGANIZ ATION 06/11/2022 [facility] DATE CREATED AUTHOR AUTHOR'S ORGANIZ ATION 09/13/[address] [facility] DATE CREATED AUTHOR AUTHOR'S ORGANIZ ATION 11/18/2022 [facility] DATE CREATED AUTHOR AUTHOR'S ORGANIZ ATION 02/18/2023 [facility] DATE CREATED AUTHOR AUTHOR'S ORGANIZ ATION 05/20/2023 [facility] DATE CREATED AUTHOR AUTHOR'S ORGANIZ ATION 05/29/2023 [facility] DATE CREATED AUTHOR AUTHOR'S ORGANIZ ATION 06/02/2023 [facility] samanta Source Comments (unrecognize d section and content) In the event this informatio n is protected by the Federal Confidentiality of Alcohol and Drug Abuse Patient Records regulations: The Federal rules restrict any use of the information to criminally investigate or prosecute any alcohol or drug abuse patient.[facility] Center[facility] the event this information is protected by the Federal Confidentiality of Alcohol and Drug Abuse Patient Records regulations: The Federal rules restrict any use of the information to criminally investigate or prosecute any alcohol or drug abuse patient.[facility] CenterIn the event this information is protected by the Federal Confidentiality of Alcohol and Drug Abuse Patient Records regulations: The Federal rules restrict any use of the information to criminally investigate or prosecute any alcohol or drug abuse patient.[facility] Reason for Visit (unrecogniz ed section and content) Reason Comments Radiology Mammogram Reason Comments Lab Orders Reason Comments Orders Specialty Diagnoses / Procedures Referred By Contac t Referred To Contact Diagnoses Primary osteoarthritis of right hip Procedures XR HIP WITH PELVIS RIGHT Miko Ohara MD [address] [place] [address] Referral ID Status Reason Start Date Expiration Date V isits Requested Visits Authorized [id number] New Request 05/06/2023 05/30/2024 1 1 Reason Comments Pain Reason Comments Follow-up est pt concerns of a fib per smart watch wants seen sooner. sched w/pt pt will arrive at 11:30 Care Teams (unrecognized sec tion and content) Weather Anchor Relationship Specialty Start Date End Date Elliot Starks MD [address] [place] [address] PCP - General Family Practice 11/26/15 Weather Anchor Relationship Specialty Start Date End Date Elliot Starks MD [address] [place] [address] PCP - General Family Practice 11/26/15 Weather Anchor Relationship Specialty Start Date End Date Elliot Starks MD [address] [facility] [place] [address] PCP - General Family Medicine 11/26/15 Team Status: Inactive Member Role Status Dates Elliot Starks MD Attending Provider Active Weather Anchor Relationship Specialty Start Date End Date Elliot Starks MD [address] [facility] [place] [address] PCP - General Family Medicine 05/11/23 Weather Anchor Relationship Specialty Start Date End Date Elliot Starks MD [address] [facility] [place] [address] PCP - General Family Medicine 05/11/23 Weather Anchor Relationship Specialty [place] [address] [place] [id number] PCP - General 03/17/17 Goals (unrecognized section and content) Goals may [...] BE BASED ON THE PRIMARY CLINICAL RECORDS. [facility] [facility]. provides no warranty or guarantee of the accuracy or completeness of information in this document.
--- NOTE | 2023-06-03 08:39 | P.CN_ITS ---
Consult Note: HPI Data of Consult Patient: known to practice within the last 3 years Consult date: 05/18/23 Requesting Physician: Larissa Turner NP Primary Care Provider: Marine Glass MD Consult Narrative Reason for consult: Neck pain Narrative: 77yof who presents for assessment. significant axial neck pain that is worsened with lateral rotation. denies any trauma to area. multiple ER trips, CT completed, which did not show any fracture, but significant for spondylosis in mid and lower cervical spine. she continues in >6 weeks of chiropractic therapy, but this has made pain worse. has tried MDP, muscle relaxant, with limited benefit. denies adverse med side effects. recently underwent bilateral C4/5 C5/6 facet medial branch block #1 with 90% improvement of pain and functional ability immediately following the procedure and days after. Reports significant improvement in myofascial pain as a result of recent TPI. cc:: CC: Larissa Turner NP Review of Systems ROS Status of ROS 10 or more systems reviewed and unremark able except as noted in history and below Musculoskeletal Reports: neck pain PFSH PFSH Medical History Neck pain ?M54.2 - Cervicalgia (ICD-10) Upper back pain ?M54.9 - Dorsalgia, unspecified (ICD-10) Low back pain ?M54.50 - Low back pain, unspecified (ICD-10) Osteoarthritis ?M19.90 - Unspecified osteoarthritis, unspecified site (ICD-10) H/O malignant neoplasm of breast ?Z85.3 - Personal history of malignant neoplasm of breast (ICD-10) Hearing deficit ?H91.90 - Unspecified hearing loss, unspecified ear (ICD-10) Former smoker ?Z87.891 - Personal history of nicotine dependence (ICD-10) Hypertension ?I10 - Essential (primary) hypertension (ICD-10) Atrial fibrillation ?I48.91 - Unspecified atrial fibrillation (ICD-10) Cataract ?H26.9 - Unspecified cataract (ICD-10) Surgical History H/O total hip arthroplasty ?Z96.649 - Presence of unspecified artificial hip joint (ICD-10) H/O cardiac catheterization ?Z98.890 - Other specified postprocedural states (ICD-10) History of cholecystectomy ?Z90.49 - Acquired absence of other specified parts of digestive tract (ICD- 10) H/O: hysterectomy ?Z90.710 - Acquired absence of both cervix and uterus (ICD-10) H/O foot surgery ?Z98.890 - Other specified postprocedural states (ICD-10) H/O eye surgery ?Z98.890 - Other specified postprocedural states (ICD-10) H/O shoulder surgery ?Z98.890 - Other specified postprocedural states (ICD-10) H/O breast surgery ?Z98.890 - Other specified postprocedural states (ICD-10) Social History Smoking status: Never smoker Meds Home Medications and Allergies Home Medications Medication Instructions Recorded Confirmed Type apixaban 5 mg tablet (Eliquis) 5 mg PO BID 10/28/22 05/25/23 History atenolol 50 mg tablet 75 mg PO DAILY 10/28/22 05/25/23 History baclofen 10 mg tablet 20 mg PO TID 10/28/22 05/25/23 History hydrochlorothiazide 25 mg tablet 25 mg PO DAILY 10/28/22 05/25/23 History lisinopril 20 mg tablet 20 mg PO DAILY 10/28/22 05/25/23 History neuveria vitamin DAILY 10/28/22 History omeprazole 20 mg tablet,delayed 20 mg PO DAILY 10/28/22 05/25/23 History release potassium 10 mg PO DAILY 10/28/22 05/25/23 History temazepam 30 mg capsule 30 mg PO QPM 10/28/22 05/25/23 History trospium 20 mg tablet 20 mg PO Q12H 04/02/23 05/25/23 History orphenadrine citrate 100 mg 100 mg PO DAILY PRN muscle spasm 05/16/23 05/25/23 Rx tablet,extended release #14 tabs Allergies Allergy/AdvReac Type Severity Reaction Status Date / Time acetaminophen [From Vicodin] Allergy Severe Verified 05/25/23 07:08 hydrocodone [From Vicodin] Allergy Severe Verified 05/25/23 07:08 codeine Allergy Unknown Verified 05/25/23 07:08 levofloxacin [From Levaquin] Allergy Unknown Verified 05/25/23 07:08 morphine Allergy Unknown Verified 05/25/23 07:08 Penicillins Allergy Unknown Verified 05/25/23 07:08 tramadol Allergy Unknown Verified 05/25/23 07:08 Exam Narrative Exam Narrative: Psych-alert and oriented x 3.? Attentive and appropriate, constitutionally normal, displays normal mood and affect per situation.? There are no obvious deficits in memory, reasoning, or intellect.? Skin-no obvious rashes, bruising, or erythema noted to the patient's area of pain. Extremities-upper extremities are warm with minimal edema and palpable pulses. Cervical- tenderness to palpation noted in the cervical spine and paraspinal musculature.?Multiple trigger points expressed on palpation. Pain is elicited with extension, and lateral rotation of the cervical spine.? Range of motion is slightly diminished due to pain. Facet loading maneuvers are positive bilaterally.? Coordination remains intact.? Gait remains non-antalgic. Constitutional Documenting provider has reviewed patient's vital signs: yes Common normals: no apparent distress, oriented x3, healthy appearing, alert and well nourished General appearance: cooperative HENIN Common normals: normocephalic, hearing grossly normal bilaterally and moist oral mucous membranes Head and scalp: normocephalic Eye Common normals: PERRL Pupil: PERRL Neck & C-Spine Common normals: full ROM General: normal visual inspection Chest Common normals: inspection of chest normal Respiratory Common normals: normal respiratory effort, no retractions and no use of accessory muscles Neuro Common normals: oriented x3, CN's II-XII intact bilaterally, moves all extremities, no focal motor deficits, no sensory deficits noted and deep tendon reflexes 2+ bilaterally Sensorium/orientation: alert Motor exam: strength 5/5 throughout and no movement abnormalities noted Psych Common normals: mental status grossly normal, thought process normal, cooperative, affect normal, speech normal and activity/motor behavior normal Speech: normal speech Thought process: normal thought process Results Additional Findings Additional findings: I have checked an [place] report on this patient today and there are no aberrancies noted in the prescribing history.?? A drug screen was completed and reviewed within the last year, and if there has not been a drug screen completed we ordered one today to monitor higher risk, state monitored pain medication use. As part of providing excellent, safe, comprehensive care, the following was completed at our patient's visit: 1. A medication reconciliation and review to ensure accurate knowledge of current/active medications, including asking our patients to inform us about any [id number] medications or herbal remedies/nutritional supplements/alternative remedies. 2. A review to specifically ensure our patients have had annual screening for: elevated body mass index (BMI), tobacco use, screening for depression, and screening for unhealthy alcohol use. When screening is concerning, patients are provided with education and the specific recommendation to discuss the concerning health issue and treatment options with their primary care provider. Assessment and Plan Assessment and Plan (1) Cervical spondylosis: Assessment and Plan: The patient has had over 3 months of moderate to severe neck pain with functional impairment and inadequate response to conservative care including NSAIDS (unless there are contraindication such as concurrent blood thinners), multiple oral or topical pain medications, and home exercise program/physical therapy.? Patient has completed >6 weeks of guided home exercise program and/or formal physical therapy program without relief of their symptoms.? I have reviewed the imaging of the cervical spine and no red flags were identified.? The imaging reveals radiographic findings consistent with cervical spondylosis ? We discussed the risks and benefits of the procedure with the patient, and we are NOT planning on using sedation as outlined in the guidelines from Medicare unless there is a documented reason that sedation would be strongly recommended.?? ?The procedure will be completed with fluoroscopic guidance.? (2) Myofascial pain syndrome, cervical: (3) Chronic right hip pain: (4) Lumbar spondylosis: Plan proceed with bilateral C4/5 C5/6 facet medial branch block #2 working towards thermal RFA start TENS unit for myofascial pain continue current medications, tolerating well without side effects f/u 1 week after injection
== END 2023-06-03 08:20 | disposition home or self-care (01) ==
LOC: PM 08:19
PROVIDERS: PCP Family Medicine; Visit Provider Nurse Practitioner
DX: M47.812 Spondylosis without myelopathy or radiculopathy, cervical region (principal); M79.18 Myalgia, other site; M25.552 Pain in left hip; M47.816 Spondylosis without myelopathy or radiculopathy, lumbar region
CPT/HCPCS: G0463

== ENCOUNTER 2023-06-08 07:42 | Day surgery (SDC) | payer MEDICARE, SELFPAY ==
--- OUTSIDE RECORDS SUMMARY | 2023-06-08 07:46 | XMS_ITS | CCD ---
Author Name Unknown Address [address] [place] [address] Organization [facility] Care Team Providers Care Crime Laboratory Analyst Name Role Phone PHYSICIAN, DEFAULT Unavailable Unavailable [...] Unavailable Elliot Starks MD Primary Care Provider MD Elliot Starks Attending Provider [phone] Elliot Starks Admitting Unavailable Elliot Starks Attending Unavailable ELLIOT STARKS Primary Care Physician [phone] Elliot Starks MD Primary Care Provider Melchor [...] Unavailable Elliot Starks MD Primary Care Provider [phone] Alfreda Miller Attending Unavailable ELLIOT STARKS Referring Unavailable Alfreda Miller Attending Unavailable Alfreda Miller Attending Unavailable DONNA DIAZ Attending Unavailable ELLIOT STARKS Referring Unavailable ELLIOT STARKS Primary Care Unavailable Allergies Allergy Classification Reported Allergen(s) Allergy Type Date of Onset Reaction(s) Facility (5 sources) Acetaminophen / HYDROcodone; 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: [HYDROCODONE-ACET AMINOPHEN] Drug Allergy 03-19-20 17 Unknown, Itching, Rash [facility] (18 sources) Baclofen; 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: [baclofen] Drug Allergy 03-19-20 17 Unknown, Itching, Rash [facility] (9 sources) Codeine; 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: [codeine] Drug Allergy 08-09-19 09 Unknown, Itching, Rash [facility] (6 sources) levoFLOXacin; 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: [levofloxacin] Drug Allergy 03-19-20 17 Unknown, Itching, Rash [facility] (20 sources) Morphine; 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: [morphine] Drug Allergy 08-09-19 09 [facility] (5 sources) oxyCODONE Drug Allergy 12-03-19 16 [facility] (3 sources) Penicillins; 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: [PENICILLINS] Drug Allergy 12-03-19 16 [facility] (1 source) Baclofen Drug Allergy [facility] (1 source) Codeine Drug Allergy [facility] (14 sources) levoFLOXacin; 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: [Levaquin] Drug Allergy Unknown [facility] (1 source) Morphine Drug Allergy 05-04-18 94 [facility] (1 source) oxyCODONE Drug Allergy 05-04-19 05 [facility] (1 source) Penicillins Drug allergy (disorder) 05-04-18 93 [facility] (3 sources) traMADol; 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: [Ultram] Drug Allergy [facility] (11 sources) Codeine Drug Allergy Unknown [facility] Other (14 sources) Penicillin; 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: [penicillin] Drug Allergy Unknown [facility] (17 sources) traMADol; 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: [tramadol] Drug Allergy 07-13-19 20 Itching [facility] (14 sources) zolpidem; 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: [zolpidem] Drug Allergy 07-04-19 23 Unknown [facility] (2 sources) Penicillins Drug Allergy 12-03-19 16 Hives, Rash [facility] (1 source) Non-steroidal anti-inflammatory agent Drug allergy 02-02-20 13 Unknown [employer] [facility] [employer] Other (3 sources) sulfADIAZINE; 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: [SULFADIAZINE] Drug Allergy 07-04-19 23 Comment:Sulfa [facility] Other (1 source) Ultram *ANALGESICS - OPIOID* Propensity to adverse reactions Unknown [facility] Other (1 source) Vioxx *ANALGESICS - ANTI-INFLAMMATORY * Propensity to adverse reactions Unknown [facility] Other (1 source) Penicillin G Benzathine & Proc Drug allergy Unknown [facility] Other (1 source) Morphine Sulfate (Concentrate) *ANALGESICS - OPIOI Propensity to adverse reactions Unknown [facility] Other (1 source) Allergies Reconciled Propensity to adverse reactions Unknown [facility] Other (1 source) patient allergy list reviewed by nurse or physicia Propensity to adverse reactions 02-02-20 13 Comment:Done [facility] Other (1 source) Vicodin *ANALGESICS - OPIOID* Propensity to adverse reactions Unknown [facility] Other (1 source) calcitonin Drug allergy Unknown [facility] Other (2 sources) Penicillins Propensity to adverse reactions to drug 05-14-19 24 [facility] Acetaminophen / HYDROcodone; 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: [Vicodin] Drug Allergy [facility] (1 source) Adhesive Tape; 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: [Tape] Propensity to adverse reactions (disorder) [facility] (2 sources) Adhesive agent; 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: [ADHESIVE] Propensity to adverse reactions to drug 07-04-19 [facility] (2 sources) penicillin G benzathine / penicillin G procaine; 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: [PENICILLIN G BENZATHIN,PROCAIN ] Drug Allergy 07-04-19 [facility] (2 sources) rofecoxib; 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: [ROFECOXIB] Drug Allergy 07-04-19 [facility] (1 source) Morphine; 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: [Morphine Sulfate] Drug Allergy [facility] (1 source) zolpidem; 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: [Ambien] Drug Allergy [facility] Medications Current Medications Medication Drug [...] x 1 month, then 2x/week for maintainence, [facility]/pharmacy #[id number], 165, cm, 02/11/23 10:41:00 EDT, Height/Length [...] Daily, # 30 tab(s), Refills(s) 11, Pharmacy: [facility]/pharmacy #[id number], 165, cm, 02/11/23 10:41:00 EDT, Height/Length [...] 03/31/2022 Active take 1 tablet by mirza th every twenty-four hours Klor-Con M20 20 MEQ [...] May, Active take 1 capsule by mo ut at bedtime as needed for sleep temazepam [...] Episodic Coronary atherosclerosis and other heart disease (3 sources) Coronary arteriosclerosis; 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: [Atherosclerotic heart disease of [place] coronary artery without angina pectoris] Onset: 07-29-2021 Resolved: 08-16-2021 06-02-2023 Chronic E Codes: Natural/environment (1 source) Exposure to other specified factors, initial encounter; 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: [EXPOSURE OTHER SPEC FACTORS INITIAL] Onset: 04-29-2022 Episodic Esophageal disorders (1 source) Gastro-esophageal reflux disease with esophagitis; 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: [Gastro-esophageal reflux disease with esophagitis, without bleeding] Onset: 05-04-1957 Chronic Essential hypertension (18 sources) Essential (primary) hypertension; 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: [Essential hypertension] [...] 05-06-2023 Chronic Other aftercare (1 source) Other terminal manager (current) drug therapy; 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: [OTH ASSISTED CURRENT DRUG THERAPY] Onset: 06-11-2022 Episodic Other aftercare (1 source) Long-term current use of anticoagulant; 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: [USP (current) use of anticoagulants] Onset: 02-11-2023 Episodic [...] Test Name Value Interpretation Reference Range Facility Pre-Certification Formon Pre-Certification Form [id number] #1.00TIFF Normal [facility] POCT EKGOrdered By: Samantha Gurrola on 06-02-2023 [facility] th System MRI HIP RIGHT WITHOUT CONTRA STon [...] tendons as discussed in detail above. 3. Rdpeq-wq-xaydmcov amount of fluid along the lateral aspect of the greater trochanter in the distribution of the greater trochanteric bursa may relate to postoperative seroma or bursitis. 4. No acute bony finding. Normal marrow signal. NOTE: Other chronic/incidental findings are discussed above. Normal [facility] [place] 05-28-2023 Screens [id number] #1.00TIFF Normal [facility] Patient Educationon 05-27-19 Patient Education Obstetrics and Gynecology Kegel Exercises [...] provider. Document Revised: 08/29/2021 Document Reviewed: 08/29/2021 [employer] Patient Education ? 2022 [employer]. [facility] Urology Office/Clinic Noteon 05-27-2023 Urology Office/Clinic Note Chief Complaint 3m to starting meds HPI Staff Pt is here for a 3 month F/U Previous DX; Frequent UTI, Microscopic hematuria, mixed incontinence, Started Gemtesa 75 mg qd & Estrace cream at time of last encounter. Gemtesa was too expensive, so switched to Trospium 20mg BID. Denies infection since last encounter. No concerns with Estrace Cream. Denies current pain/burning and visible blood in urine. Urgency has greatly improved since starting Trospium. States she has much more control.Denies leaking since starting med. PVR 37ml History of Present Illness Tests reviewed: reviewed UA I have reviewed the previous health record information and history for this patient from . I have reviewed and verified the staff HPI to be accurate for this encounter. There have been no associated fever, chills, flank pain, or blood in the urine. Denies any urinary infections since last encounter. Review of Systems PHQ Score Initial Depression Screen Score: 0 SCORE ROS - Provider Constitutional: denies weight loss, denies hot flashes. Eyes: denies eye problems. Gastrointestinal: denies nausea, denies vomiting. Cardiovascular: denies chest pain or angina. Integumentary: no dryness Musculoskeletal: denies musculoskeletal symptoms. ENMT: denies otolaryngeal symptoms. Respiratory: no shortness of breath. Heme/Lymph: denies easy bleeding tendency, denies easy bruising tendency. Psychiatric: no confusion, no anxiety. Genitourinary: See HPI. Physical Exam Vitals & Measurements HR: 74(Peripheral) RR: 16 BP: 117/65 HT: 65 in HT: 165 cm WT: 77.5 kg WT: 170.5 lb BMI: 28.47 General Appearance: alert , no acute distress, well nourished, well developed female. Genitourinary: bladder nonpalpable, no flank pain. Assessment/Plan 77 yo F patient evaluation for recurrent UTIs. BBS 24 1. Frequent UTI (N39.0: Urinary tract infection, site not specified) Per PCP note, pt has [address] AP w/ Con 03/10/20 - a stone in a vein adjacent to the Rt ureter rather than a ureteral stone, may represent a phlebolith rather than a renal stone. C&S 04/14/22 >100k E Coli C&S 06/09/22 pansensitive >100k E Coli C&S 10/27/22 pansensitive >100k E Coli Cardinal Sx of UTI: odor to urine & increased urgency w/pain and burning. Tries to ensure she empties completely, sits a little longer and pushes/strains. PVR 15mL Hx of Hysterectomy. Denies leaking. Denies family Hx of Bladder Cancer. Pt was started on Estrace cream at prior OV, pt states that she uses it 2x/week. Denies infection since last encounter. No concerns with Estrace Cream. Denies current pain/burning and visible blood in urine. UA today shows small blood and trace leuks. Asx Pt states that she voids every 2-3 hours. Pt states that she doesn't feel a difference in sxs since starting the Estrace cream. Advised pt that she could stop this to see if her sxs start again or not. -OTC UTI Preventive Supplements- cont with cranberry pills -Cont Estrace Cream. Can dc if no improvement, however if recurrent UTIs or notices symptom change, recommend restarting 2. Microscopic hematuria (R31.29: Other microscopic hematuria) Pt states she has Hx of Microscopic Hematuria, states since high school, runs in the family, has had a hematuria workup including a scope, at [facility]. Occasional visible blood w/UTI. UA today shows small blood. Pt declines undergoing further workup, understanding potential risk of missed malignancy. Pt knows to call our office if she sees visible blood in her urine. 3. Mixed incontinence (N39.46: Mixed incontinence) Pt was started on Myrbetriq at prior OV-called endorsing bilateral kidney pain, cold symptoms such as watery eyes, runny nose and coughing. Gemtesa was too expensive, so switched to Trospium 20mg BID - slight dry eyes, dry mouth and constipation, not bothersome Urgency has greatly improved since starting Trospium. States she has much more control. Denies leaking since starting med. Discussed alternatives such as extended release or Botox injections to help with side effects. She would like to try alternative formulation rather than Botox at this time. Risk benefits discussed. Pt was referred for PFPT at [facility] at prior OV, has not started this, try's to do the Kegels at home. Does not feel she needs therapy at this time given great relief with medications. Follow up in 1 yr. All questions/concerns were discussed. Pt to call the office if she encounters any issues prior. Pt acknowledges understanding. -D/c Trospium 20mg. -Will send Trospium 60mg ER to pharmacy on file. Discussed the medication side effects, and the patient will monitor closely for these, as well as for symptom improvement. If severe side effects occur, the medication should be stopped and the office notified. -Kegels. 4. Anticoagulated (Z79.01: salvage determiner (current) use of anticoagulants) Pt does take Eliquis therapy. Elevated risk of periop complications 5. History of (more content not included)... Normal [facility] Comment on above: Result Comment: Elec tronically Signed By: Alfreda Miller MD\.br\Date and Time Signed: 05/27/23 19:56 EST\.br\Electronically Co-Signed By: Karlee Ramos\.br\Date and Time Co-Signed: 05/27/23 10:23 EST COBALT AND CHROMIUMon 2023 CHROMIUM,WB 1.1 Normal [facility] Comment on above: Result Comment: Refe rence range: <3.0 Unit: ng/mL PERFORMED BY [employer] COBALT,WB <1.0 [facility] Comment on above: Result Comment: Refe rence range: <3.0 Unit: ng/mL (NOTE) Chromium and cobalt analysis performed by inductively coupled plasma/mass spectrometry (ICP/MS). Reference range is for patients with xlopn-qu-fdtuu (MoM) orthopedic implants. The [place] Association of Hip and Knee Surgeons, the [place] Academy of Orthopaedic Surgeons, and The Hip Society, have published a consensus statement, Risk Stratification Algorithm for Management of Patients with Dpgde-io-Epmus Hip Arthroplasty. The algorithm is intended as an aid to orthopedic surgeons in the assessment and management of patients with Wwthq-qa-Gljhq bearings. The systematic risk stratification includes recommendations [...] developed and its performance characteristics determined by [employer] It has not been cleared or approved by the Food and Drug Administration. COBALT AND CHROMIUM,WBon Chromium (Bld) [Mass/Vol] 1.1 [facility] Comment on above: Reference range: <3. 0 Unit: ng/mL PERFORMED BY [employer] [place] (Bld) [Mass/Vol] <1.0 [facility] Comment on above: Reference range: <3. 0 Unit: ng/mL (NOTE) Chromium and cobalt analysis performed by inductively coupled plasma/mass spectrometry (ICP/MS). Reference range is for patients with ykrsj-id-dubcp (MoM) orthopedic implants. The [place] Association of Hip and Knee Surgeons, the [place] Academy of Orthopaedic Surgeons, and The Hip Society, have published a consensus statement, Risk Stratification Algorithm for Management of Patients with Fnsnl-zt-Jykuz Hip Arthroplasty. The algorithm is intended as an aid to orthopedic surgeons in the assessment and management of patients with Rrcbs-my-Likqy bearings. The systematic risk stratification includes recommendations [...] developed and its performance characteristics determined by [employer] It has not been cleared or approved by the Food and Drug Administration. [facility] C REACTIVE PROTEINon 024 CRP [Mass/Vol] 48.4 mg/L High 0-10 [facility] Comment on above: Performed By: #### E SR, CREACT #### Testing performed at [id number] [place] [address] CRP [Mass/Vol] 48.4 mg/L High 0 - 10 MG/L [facility] Interpretation and review of laboratory results Abnormal [facility] ESRon 05-14-2023 ESR (Bld) [Velocity] 31 mm/h High 0-30 [facility] Comment on above: Performed By: #### E SR, CREACT #### Testing performed at [facility] [address] [place] [address] SEDIMENTATION RATE, AUTOMATE Don 05-14-2023 ESR (Bld) [Velocity] 31 mm/h [facility] Interpretation and review of laboratory results Abnormal [facility] Ambulatory Visit Summaryon 1 Ambulatory Visit Summary BETTIE BURNS :1945 Visit Date:02/11/2023 Ambulatory Visit Instructions Your Diagnosis Frequent UTI Microscopic hematuria Mixed incontinence Anticoagulated History of breast cancer Former smoker Tests Performed Urnls Dip Stick Auto w/o Microscopy POC 78071 Your Care Team Attending Physician - Paul VILLEGAS, Alfreda Palacios Primary Care Physician - RAUDEL VILLEGAS, ELLIOT Referring Physician - ELLIOT STARKS MD This [...] VILLEGAS, Alfreda Palacios Where: [facility] [place] Normal [facility] Lab Reportson 02-11-2023 Lab Reports [id number] 1#1.00TIFF [facility] Patient Educationon 02-12-20 23 Patient Education [...] provider. Document Revised: 08/29/2021 Document Reviewed: 08/29/2021 Elsevier Patient Education ? 2022 [employer] Inc. [facility] Physician Referralon 023 Physician Referral [id number] #1.00TIFF [facility] Urinalysis - DIPSTICKon 10-03 Appearance (U) cloudy [employer] Other Bilirubin Ql (U) [employer] Other Color (U) yellow [employer] Other Glucose Ql (U) Negative [employer] Other Hemoglobin Ql (U) [employer] oast [employer] Other Ketones Ql (U) Negative [employer] Other Leukocyte esterase Test strip Ql (U) moderate [employer] Other Nitrite Ql (U) Positive [employer] Other pH (U) 5 [pH] [employer] Other Protein Ql (U) Negative [employer] Other Specific gravity (U) [Rel density] 1.010 [employer] Other Urobilinogen (U) [Mass/Vol] off chart [employer] Other Urinalysis - DIPSTICK [employer] Other Urine Cultureon 10-27-2022 Bacteria identified Cx Nom (U) ORGANISM: Escherichia coli (O:ESCCOL) Lagrange Count >100,000 Aerobic AUBREY Charge (NMIC56) ----- [...] RESISTANT TO ALL B-LACTAM DRUGS. PERFORMED BY: [place] [id number] PATHOLOGIST [employer] BONDER JOSE GUADALUPE FERGUSON M.D. [facility] Comment on above: Performed By: #### C UU #### [address] [place] 09-11-2022 [place] Telephone (ELIGIOA) BETTIE BURNS ([id number]) 1945 F Date Time Provider Department 09/11/22 MATT ADAMS During your visit today, we recorded the following information about you: Matt Adams RN 09/11/2022 9:54 AM Signed Pt called to request yearly Mammogram order I have pended order as previously completed Pt requests to fax to Nori Lema [phone] [facility]: please review and sign if agreeable RICARDO Lopez RN 09/11/2022 11:45 AM Signed Order faxed to [facility] and pt is [...] mammogram for malignant neoplasm of breast [Z12.31] Order(s):[facility] SCREENING [facility] [[id number]] Order #: [id number] FUTURE Prescriptions as of 09/11/2022 - lisinopril [...] Status:Closed by MATT ADAMS on 09/11/22 Normal [facility] Urinalysis - DIPSTICKon 06-05 Appearance (U) cloudy [employer] Other Bilirubin Ql (U) Negative [employer] Other Color (U) pale yellow [employer] Other Glucose Ql (U) Negative [employer] Other Hemoglobin Ql (U) non hem-trace [employer] Other Ketones Ql (U) trace [employer] Other Leukocyte esterase Test strip Ql (U) moderate [employer] Other Nitrite Ql (U) Negative [employer] Other pH (U) 5 [pH] [employer] Other Protein Ql (U) trace [employer] Other Specific gravity (U) [Rel density] 1.005 [employer] Other Urobilinogen (U) [Mass/Vol] normal [employer] Other Urinalysis - DIPSTICK [employer] Other CULTURE URINEon 06-11-2022 CULTURE URINE Isolate [...] F Trimethoprim/Sulfame thoxazole <=20 S F Normal [facility] Comment on above: Performed By: #### U RCX #### [facility] [address] [place] [address] Dr. Florencio Narayanan CARDIAC AMBER ADMITon 023 CK [Catalytic activity/Vol] 44 U/L Normal 26-192 [facility] Comment on above: Performed By: #### C LILIAN LOZANO CMADM #### [facility] [address] [address] [address] Florencio Narayanan CK.MB [Mass/Vol] ng/mL Normal <=3.60 [facility] Comment on above: Performed By: #### C LILIAN LOZANO CMADM #### [facility] [address] [place] [address] Dr. Florencio Narayanan HSTROP 14.6 pg/mL Normal 4.0-51.3 [facility] Comment on above: Result Comment: CUT- OFF POINTS HAVE BEEN ESTABLISHED BASED ON THE FOURTH UNIVERSAL DEFINITIONS OF MYOCARDIAL INFARCTION. THE UPPER REFERENCE LIMIT (URL) OF TROPONIN, DEFINED THE 99TH PERCENTILE OF cTnI DISTRIBUTION IN A REFERENCE POPULATION, HAS BEEN CONFIRMED THE DECISION THRESHOLD FOR [place] DIAGNOSIS. Performed By: #### C LILIAN LOZANO CMADM #### [facility] [address] [place] [address] Dr. Florencio Narayanan UMER 109 ng/mL Critically high 9-82 [facility] Comment on above: Performed By: #### C LILIAN LOZANO CMADM #### [facility] [address] [place] [address] Dr. Florencio Narayanan CBC AUTO DIFFon 06-09-2022 BASO # 0.1 103/ul Normal 0.0-0.1 [facility] Comment on above: Performed By: #### C BC #### [facility] [address] [place] [address] Dr. Florencio Narayanan Basophils/100 WBC (Bld) 0.4 % Normal 0.2-2.0 [facility] Comment on above: Performed By: #### C BC #### [facility] [address] [place] [address] Dr. Florencio Narayanan EO # 0.0 103/ul Normal 0.0-0.7 [facility] Comment on above: Performed By: #### C BC #### [facility] [address] [place] [address] Dr. Florencio Narayanna Eosinophils/100 WBC (Bld) 0.2 % Critically low 0.9-7.0 [facility] Comment on above: Performed By: #### C BC #### [facility] [address] [place] [address] Dr. Florencio Narayanan Erythrocyte distribution width (RBC) [Ratio] 12.3 % Normal 11.0-15.0 [facility] Comment on above: Performed By: #### C BC #### [facility] [address] [place] [address] Dr. Florencio Narayanan Hematocrit (Bld) [Volume fraction] 38.4 % Normal 36.0-48.0 [facility] Comment on above: Performed By: #### C BC #### [facility] [address] [place] [address] Dr. Florencio Narayanan Hemoglobin (Bld) [Mass/Vol] 12.7 g/dL Normal 12.0-16.0 [facility] Comment on above: Performed By: #### C BC #### [facility] [address] [place] [address] Dr. Florencio Narayanan IG # 0.06 10e3/ul Critically high 0.00-0.03 [facility] Comment on above: Performed By: #### C BC #### [facility] [address] [place] [address] Dr. Florencio Narayanan IG % 0.5 % Normal 0.0-0.5 [facility] Comment on above: Performed By: #### C BC #### [facility] [address] [place] [address] Dr. Florencio Narayanan LYMPH # 1.0 103/ul Critically low 1.2-3.8 [facility] Comment on above: Performed By: #### C BC #### [facility] [address] [place] [address] [address] Florencio Narayanan Lymphocytes/100 WBC (Bld) 8.4 % Critically low 20.5-60.0 [facility] Comment on above: Performed By: #### C BC #### [facility] [address] [place] [address] Dr. Florencio Narayanan MANUAL DIFF REQ NO Normal [facility] Comment on above: Performed By: #### C BC #### [facility] [address] [place] [address] Dr. Florencio Narayanan MCH (RBC) [Entitic mass] 32.4 pg Normal 26.7-34.0 [facility] Comment on above: Performed By: #### C BC #### [facility] [address] [place] [address] Dr. Florencio Narayanan MCHC (RBC) [Mass/Vol] 33.1 g/dL Normal 29.9-35.2 [facility] Comment on above: Performed By: #### C BC #### [facility] [facility] [address] [place] [address] Dr. Florencio Narayanan MCV (RBC) [Entitic vol] 98.0 fL Normal 81.0-99.0 [facility] Comment on above: Performed By: #### C BC #### [facility] [address] [place] [address] Dr. Florencio Narayanan MONO # 1.6 103/ul Critically high 0.3-0.8 [facility] Comment on above: Performed By: #### C BC #### [facility] [address] [place] [address] Dr. Florencio Narayanan Monocytes/100 WBC (Bld) 13.1 % Critically high 1.7-12.0 [facility] Comment on above: Performed By: #### C BC #### [facility] [address] [place] [address] Dr. Florencio Narayanan NEUT # 9.5 103/ul Critically high 1.4-6.5 [facility] Comment on above: Performed By: #### C BC #### [facility] [address] [address] [address] Florencio Narayanan Neutrophils/100 WBC (Bld) 77.4 % Critically high 43.0-75.0 [facility] Comment on above: Performed By: #### C BC #### [facility] [address] [address] [address] Florencio Narayanan Platelet mean volume (Bld) [Entitic vol] 9.4 fL Critically low 9.5-13.5 [facility] Comment on above: Performed By: #### C BC #### [facility] [address] [place], [place] [address] Dr. Florencio Narayanan PLT 140 103/ul Critically low 150-450 [facility] Comment on above: Performed By: #### C BC #### [facility] [address] [address] [address] Florencio Narayanan RBC 3.92 106/ul Critically low 4.20-5.40 [facility] Comment on above: Performed By: #### C BC #### [facility] [id number] Florencio Narayanan WBC 12.2 103/ul Critically high 4.0-11.0 [facility] Comment on above: Performed By: #### C BC #### [facility] [address] [address] [address] STROKE HEAD WOon [...] by: LUANA VILLAFANA Date: 2022-06-09 12:24 Normal [facility] Covid-19 PCR (CVDTBH)on SARS-CoV-2 (COVID-19) RNA CHRISTOPHER+probe Ql (Unsp spec) Not detected Normal NOT DETECTED [facility] Comment on above: Result Comment: When diagnostic [...] for this test is supported by the [place] of Health and Human Service's declaration that [...] used). Performed By: #### C VDTB #### [facility] [address] [place] [address] Dr. Florencio Narayanan ER URINE PROFILEon 3 Bilirubin Ql (U) Negative Normal NEGATIVE [facility] Comment on above: Performed By: #### ADIEL LE #### [facility] [address] [place] [address] Dr. Florencio Narayanan Clarity (U) CLEAR Normal CLEAR [facility] Comment on above: Performed By: #### ADIEL LE #### [facility] [address] [place] [address] Dr. Florencio Narayanan Color (U) LT. YELLOW Normal YELLOW [facility] Comment on above: Performed By: #### ADIEL LE #### [facility] [address] [place] [address] Dr. Florencio Narayanan ERUAHD A micrscopic examination will be performed if indicated. Normal [facility] Comment on above: Performed By: #### ADIEL LE #### [facility] [address] [place] [address] Dr. Florencio Narayanan Glucose Ql (U) Negative Normal NEGATIVE [facility] Comment on above: Performed By: #### Malini PIZANO UMICRO #### [facility] [address] [place] [address] Dr. Florencio Narayanna Hemoglobin Ql (U) LARGE Abnormal NEGATIVE [facility] Comment on above: Performed By: #### Malini PIZANO UMICRO #### [facility] [address] [place] [address] Dr. Florencio Narayanan Ketones Ql (U) TRACE Abnormal NEGATIVE [facility] Comment on above: Performed By: #### Malini PIZANO UMICRO #### [facility] [address] [place] [address] Dr. Florencio Narayanan LEUKOCYTES LARGE Abnormal NEGATIVE [facility] Comment on above: Performed By: #### Malini PIZANO UMICRO #### [facility] [address] [place] [address] Dr. Florencio Narayanan Nitrite Ql (U) Positive Abnormal NEGATIVE [facility] Comment on above: Performed By: #### Malini PIZANO UMICRO #### [facility] [address] [place] [address] Dr. Florencio Narayanan pH (U) 5.5 [pH] Normal 5-9 [facility] Comment on above: Performed By: #### Malini PIZANO UMICRO #### [facility] [address] [place] [address] Dr. Florencio Narayanan SPEC GRAVITY 1.010 Normal 1.005-<=1.025 [facility] Comment on above: Performed By: #### Malini PIZANO UMICRO #### [facility] [address] [place] [address] Dr. Florencio Narayanan UA PROTEIN TRACE Normal NEGATIVE/ TRACE [facility] Comment on above: Performed By: #### Malini PIZANO UMICRO #### [facility] [address] [place] [address] Dr. Florencio Narayanan UR MICRO IND INDICATED Normal [facility] Comment on above: Performed By: #### ADIEL LE #### [facility] [address] [place] [address] Dr. Florencio Narayanan Urobilinogen Qn (U) 0.2 {Zenia'U}/dL Normal 0.2 - 1. 0 [facility] Comment on above: Performed By: #### ADIEL LE #### [facility] [address] [place] [address] Dr. Florencio Narayanan LIPASEon 06-09-2022 Lipase [Catalytic activity/Vol] 68.0 U/L Critically low 73.0-393.0 [facility] Comment on above: Performed By: #### C MP LIPA, CMADM #### [facility] [address] [place] [address] Dr. Florencio Narayanan PROF 14(COMP METB)on 023 Albumin [Mass/Vol] 2.5 g/dL Critically low 3.4-5.0 [facility] Comment on above: Performed By: #### C MP, LIPA, CMADM #### [facility] [address] [place] [address] Dr. Florencio Narayanan Albumin/Globulin [Mass ratio] 0.6 {ratio} Normal [facility] Comment on above: Performed By: #### C MP, LIPA, CMADM #### [facility] [address] [place] [address] Dr. Florencio Narayanan ALP [Catalytic activity/Vol] 150 U/L Critically high 46-116 [facility] Comment on above: Performed By: #### C MP, LIPA, CMADM #### [facility] [address] [place] [address] Dr. Florencio Narayanan ALT [Catalytic activity/Vol] 27 U/L Normal 14-59 [facility] Comment on above: Performed By: #### C MP, LIPA, CMADM #### [facility] [address] [place] [address] Dr. Florencio Narayanan Anion gap [Moles/Vol] 12.8 mmol/L Normal [facility] Comment on above: Performed By: #### C MP, LIPA, CMADM #### [facility] [address] [address] [address] Florencio Narayanan AST [Catalytic activity/Vol] 31 U/L Normal 15-37 [facility] Comment on above: Performed By: #### C MP, LIPA, CMADM #### [facility] [address] [address] [address] Florencio Narayanan Bilirubin [Mass/Vol] 1.1 mg/dL Critically high 0.2-1.0 [facility] Comment on above: Performed By: #### C MP, LIPA, CMADM #### [facility] [address] [address] [address] Florencio Narayanan Calcium [Mass/Vol] 9.1 mg/dL Normal 8.5-10.1 [facility] Comment on above: Performed By: #### C MP, LIPA, CMADM #### [facility] [address] [address] [address] Florencio Narayanan Chloride [Moles/Vol] 95 mmol/L Critically low 98-107 [facility] Comment on above: Performed By: #### C MP, LIPA, CMADM #### [facility] [address] [address] [address] Florencio Narayanan CO2 [Moles/Vol] 29.4 mmol/L Normal 21.0-32.0 [facility] Comment on above: Performed By: #### C MP, LIPA, CMADM #### [facility] [address] [address] [address] Florencio Narayanan Creatinine [Mass/Vol] 1.34 mg/dL Critically high 0.55-1.02 [facility] Comment on above: Performed By: #### C MP, LIPA, CMADM #### [facility] [address] [place] [address] Dr. Florencio Narayanan EGFR-AF [place] 47 mL/min/1.73m2 Critically low >=60 [facility] Comment on above: Performed By: #### C MP, LIPA, CMADM #### [facility] [address] [place] [address] Dr. Florencio Narayanan EGFR-NON AF [place] 39 mL/min/1.73m2 Critically low >=60 [facility] Comment on above: Performed By: #### C MAURICIO LOZANOA, CMADM #### [facility] [address] [address] [address] Florencio Narayanan Globulin (S) [Mass/Vol] 4.3 g/dL Normal [facility] Comment on above: Performed By: #### C BLAKE LIPA, CMADM #### [facility] [address] [address] [address] Florencio Narayanan Glucose [Mass/Vol] 118 mg/dL Critically high 74-106 [facility] Comment on above: Performed By: #### C BLAKE LIPA, CMADM #### [facility] [address] [place] [address] Dr. Florencio Narayanan Potassium [Moles/Vol] 3.2 mmol/L Critically low 3.5-5.1 [facility] Comment on above: Performed By: #### C BLAKE LIPA, CMADM #### [facility] [address] [address] [address] Florencio Narayanan Protein [Mass/Vol] 6.8 g/dL Normal 6.4-8.2 [facility] Comment on above: Performed By: #### C BLAKE LIPA, CMADM #### [facility] [address] [address] [address] Florencio Narayanan Sodium [Moles/Vol] 134 mmol/L Critically low 136-[address] [facility] Comment on above: Performed By: #### C MP, LIPA, CMADM #### [facility] [address] [address] [address] Florencio Narayanan Urea nitrogen [Mass/Vol] 29.0 mg/dL Critically high 7.0-18.0 [facility] Comment on above: Performed By: #### C MP, LIPA, CMADM #### [facility] [address] [address] [address] Florencio Narayanan Urea nitrogen/Creatinine [Mass ratio] 21.6 mg/mg Normal [facility] Comment on above: Performed By: #### C MP, LIPA, CMADM #### [facility] [address] [place] [address] Dr. Florencio Narayanan URINE MICROSCOPIC ONLYon BACTERIA SMALL Abnormal NONE SEEN [facility] Comment on above: Performed By: #### E RUR, UMICRO #### [facility] [address] [place] [address] Dr. Florencio Narayanan Bacteria identified Cx Nom (U) INDICATED Normal [facility] Comment on above: Performed By: #### E RUR, UMICRO #### [facility] [address] [place] [address] Dr. Florencio Narayanan CAST NONE SEEN Normal NONE SEEN [facility] Comment on above: Performed By: #### E RUR, UMICRO #### [facility] [address] [place] [address] Dr. Florencio Narayanan Crystals LM Nom (Urine sed) NONE SEEN Normal NONE SEEN [facility] Comment on above: Performed By: #### E RUR, UMICRO #### [facility] [address] [place] [address] Dr. Florencio Narayanan Epithelial cells LM Ql (Urine sed) FEW Abnormal NONE SEEN /RARE [facility] Comment on above: Performed By: #### E RUR, UMICRO #### [facility] [address] [place] [address] Dr. Florencio Narayanan MUCOUS NONE SEEN Normal NONE SEEN [facility] Comment on above: Performed By: #### E RUEmelina, UMICRO #### [facility] [address] [place] [address] Dr. Florencio Narayanan RBC 2-5 Abnormal 0-2 [facility] Comment on above: Performed By: #### E HARINDER, UMICRO #### [facility] [address] [place] [address] Dr. Florencio Narayanan WBC 10-20 Abnormal NONE SEEN [facility] Comment on above: Performed By: #### E RUR, UMICRO #### [facility] [address] [place] [address] Dr. Florencio Narayanan XR CHEST 2 Von [...] JOAQUÍN ATKINS Date: 2022-06-09 12:24 Normal [facility] CULTURE URINEon 04-16-2022 CULTURE URINE Isolate 1 Escherichia coli >100,000 cfu/mL of ORGANISM 1 Escherichia coli ANTIBIOTIC M.I.C RX STATUS Ampicillin >=32 R F Ampicillin/Sulbactam 16 I F Piperacillin/Tazobac hilsl <=4 S F Cefazolin <=4 S F Ceftazidime <=1 S F Ceftriaxone <=1 S F Ertapenem <=0.5 S F Imipenem <=0.25 S F Amikacin <=2 S F Gentamicin >=16 R F Tobramycin 4 S F Ciprofloxacin <=0.25 S F Levofloxacin <=0.12 S F Nitrofurantoin <=16 S F Trimethoprim/Sulfame thoxazole >=320 R F Normal [facility] Comment on above: Performed By: #### C #### [facility] [address] [place] [address] Dr. [facility]nc[facility] BETT[facility] B[facility] ([id number]) 1945 F Date Time Provider Department 10/03/21 CHOI, ANDREW R HEMTSA During your visit today, we recorded the [...] Z17.0] Order(s):CBC + DIFF [SQCBCDIF] Order #: [id number] FUTURE COMP METABOLIC PANEL [SQCMP] Order #: [id number] FUTURE CA 27.29 BLOOD [MSIK0923] Order #: [id number] FUTURE Prescriptions as of 10/03/2021 - lisinopril [...] Encounter Status:Closed by [facility]W [facility] (HEMASA) BETTIE BURNS ([id number]) 1945 F Date Time Provider Department 09/26/21 ELTON DOMINGUEZ During your visit today, we recorded the following information about you: Elton Dominguez RN 09/26/2021 2:36 PM Signed Pt scheduled for diagnostic mamm tomorrow @ [facility]. Hospital calls to ask if this could be changed to a screening mammogram since the pt is greater than 2 years from diagnosis? RICARDO Jean-Baptiste MD 09/26/2021 5:14 PM Addendum Okay to change to screening mammogram. Order signed. Thanks, ASIYA Dominguez RN 09/27/2021 8:12 AM Signed Order faxed to [facility] @ [phone]. Elton Dominguez RN Allergies As of Date: [...] mammogram for malignant neoplasm of breast [Z12.31] Order(s):[facility] SCREENING [facility] [[id number]] Order #: [id number] FUTURE Prescriptions as of 09/27/2021 - lisinopril [...] Status:Closed by ANDREW CHOI on 09/26/21 Normal [facility] MRI Hip w/o Righton 09-12-19 MRI Hip [...] by Ramon Ambrocio on 09/11/2021 1545 Normal [facility] Consult Reporton 03-14-2020 Consult Report [facility] BETTIE BURNS [id number] OBSV ANABEL WATKINS MD [id number] REFERRING PHYSICIAN: CONSULTING PHYSICIAN: Renetta Almanzar MD DATE OF CONSULTATION: 03/11/2020 REASON: A near syncopal event in a 74-year-old female, with a history of atrial fibrillation, previous cardiac ablation, who was the time of evaluation noted to have a positive test for COVID. HISTORY OF PRESENT ILLNESS: Mrs. Burns is a very pleasant, alert and oriented -[id number] female who was brought into the emergency [...] discussed with patient including quarantine. Many thanks. MD KALYAN GONZALEZ/Isidro /[id number] Normal [facility] BASICMETAon 03-11-2020 GFR AA >60 Normal [facility] Comment on above: Result Comment: Afri can Romanian GFR Calc Medical judgement is necessary to [...] for drug dosing. Performed By: #### 1 75176, 111240, [id number] ####[facility] [id number] [place] [address] Medical Director: Fahad Cast MD GFR/1.73 sq M predicted among non-blacks MDRD (S/P/Bld) [Vol rate/Area] 56 mL/min/1.73m? Normal [facility] Comment on above: Result Comment: Non GFR [...] for drug dosing. Performed By: #### 1 54723, 856004, [id number] ####[facility] [id number] [place] [address] Medical Director: Fahad Cast MD Osmolality [Osmolality] 291 mOsm/kg Normal 275-295 [facility] Comment on above: Performed By: #### 1 02450, 412244, 527287 ####[facility] [id number] [place] [address] Medical Director: Fahad Cast MD Urea nitrogen/Creatinine [Mass ratio] 24.5 mg/mg Normal [facility] Comment on above: Performed By: #### 1 51255, 043234, 367054 ####[facility] [id number] [place] [address] Medical Director: Fahad Cast MD Calcium [Mass/Vol] 9.3 mg/dL Normal 8.5-10.5 [facility] Comment on above: Performed By: #### 1 25070, 843475, 713894 ####[facility] [id number] [place] [address] Medical Director: Fahad Cast MD Chloride [Moles/Vol] 108 mmol/L Normal 100-109 [facility] Comment on above: Performed By: #### 1 38199, 693625, 507944 ####[facility] [address] [place] [address] Medical Director: Fahad Cast MD CO2, venous 28.9 mmol/L Normal 21.0-32.0 [facility] Comment on above: Performed By: #### 1 32817, 940379, 941259 ####[facility] [id number] [place] [address] Medical Director: Fahad Cast MD Creatinine [Mass/Vol] 1.0 mg/dL Normal 0.6-1.0 [facility] Comment on above: Performed By: #### 1 03245, 065784, 621586 ####[facility] [address] [place] [address] Medical Director: Fahad Cast MD Glucose [Mass/Vol] 98 mg/dL Normal 72-100 [facility] Comment on above: Result Comment: Sharon puncture should occur prior to sulfasalazine administration due to the potential for falsely depressed results. Venipuncture should occur prior to sulfapyridine administration due to the potential falsely elevated results. Baseline assay values before administration of sulfasalazine and sulfapyridine therapy would not be affected. Performed By: #### 1 61177, 193130, 405121 ####[facility] [id number] [place] [address] Medical Director: Fahad Cast MD Potassium [Moles/Vol] 4.2 mmol/L Normal 3.5-5.1 [facility] Comment on above: Performed By: #### 1 10437, 088678, 184873 ####[facility] [address] [place] [address] Medical Director: Fahad Cast MD Sodium [Moles/Vol] 144 mmol/L Normal 135-145 [facility] Comment on above: Performed By: #### 1 81960, 931096, 273608 ####[facility] [id number] [place] [address] Medical Director: Fahad Cast MD Urea nitrogen [Mass/Vol] 24 mg/dL High 10-20 [facility] Comment on above: Performed By: #### 1 38499, 049877, 762669 ####[facility] [address] [place] [address] Medical Director: Fahad Cast MD CBCNDon 03-11-2020 Erythrocyte distribution width (RBC) [Ratio] 14.4 % Normal 11.5-14.5 [facility] Comment on above: Performed By: #### 1 59547, 119838, 424460 #### [facility] Services [address] [place] [address] Director Of Patient Care: Fahad Cast MD Hematocrit (Bld) [Volume fraction] 33.9 % Low 36.0-46.0 [facility] Comment on above: Performed By: #### 1 25536, 818208, 612912 #### [facility] [address] [place] [address] Director Of Patient Care: Fahad Cast MD Hemoglobin (Bld) [Mass/Vol] 11.2 g/dL Low 12.0-16.0 [facility] Comment on above: Performed By: #### 1 70348, 068844, 794404 #### [facility] [address] [place], [place] [address] Director Of Patient Care: Fahad Cast MD MCH (RBC) [Entitic mass] 29.5 pg Normal 27.0-34.0 [facility] Comment on above: Performed By: #### 1 12911, 845174, 696526 #### [facility] [address] [place], [place] [address] Director Of Patient Care: Fahad Cast MD MCHC (RBC) [Mass/Vol] 33.0 g/dL Normal 32.0-37.0 [facility] Comment on above: Performed By: #### 1 63490, 648729, 733247 #### [facility] [address] [place], [place] [address] Director Of Patient Care: Fhaad Cast MD MCV (RBC) [Entitic vol] 89.5 fL Normal 80.0-100.0 [facility] Comment on above: Performed By: #### 1 21637, 715683, 483518 #### [facility] [address] [place], [place] [address] Director Of Patient Care: Fahad Cast MD Platelet mean volume (Bld) [Entitic vol] 6.8 fL Low 7.4-10.4 [facility] Comment on above: Performed By: #### 1 96023, 750783, 007946 #### [facility] [address] [place] [address] Director Of Patient Care: Fahad Cast MD Platelets (Bld) [#/Vol] 232 x1000 Normal 150-450 [facility] Comment on above: Performed By: #### 1 98756, 251408, 138519 #### [facility] [address] [place] [address] Director Of Patient Care: Fahad Cast MD RBC (Bld) [#/Vol] 3.79 x10 Low 4.20-5.40 [facility] Comment on above: Result Comment: Note : RBC morphology is normal unless otherwise stated. Evaluation performed only if differential is requested. Performed By: #### 1 82628, 395646, 776431 #### [facility] [address] [place] [address] Director Of Patient Care: Fahad Cast MD WBC (Bld) [#/Vol] 5.8 10*3/uL Normal [facility] Comment on above: Performed By: #### 1 42118, 611048, 935552 #### [facility] [address] [place] [address] Director Of Patient Care: Fahad Cast MD WBC (Bld) [#/Vol] 5.8 x10 Normal 4.5-11.0 [facility] Comment on above: Performed By: #### 1 61447, 027208, 395920 #### [facility] [address] [place] [address] Director Of Patient Care: Fahad Cast MD D Dimer HSon 03-11-2020 D Dimer HS 821 ng/mL FEU High <=499 [facility] Comment on above: Result Comment: Excl usion of PE and DVT The D Dimer HS assay is reported in ng/ml Fibrinogen Equivalent Units (FEU). Per flower arranger?s instructions for use, a value less than 500ng/ml (FEU) may help to exclude DVT and /or PE in outpatients when the assay is used with a clinical pretest probability assessment. D-Dimer used for DIC Screens Assay results should be used with other information, including the clinical context in forming a diagnosis. Performed By: #### C [id number] ####[facility] [id number] [place] [address] Medical Director: Fahad Cast MD LDHon 03-11-2020 LDH 198 unit/L Normal 84-246 [facility] Comment on above: Performed By: #### 1 13188, 019028, 125934 #### [facility] [facility] [address] [place] [address] Director Of Patient Care: Fahad Cast MD Progress Note-Physicianon Progress Note-Physician [...] medications. 6) DVT ppx: On Eliquis Normal [facility] Utilization Review Noteon Utilization Review Note ID Consult pending DISCHARGE WRITTEN AND PLANNED. Normal [facility] AUTO DIFFon 03-10-2020 Basophils (Bld) [#/Vol] 0.05 x1000 Normal 0.00-0.20 [facility] Comment on above: Performed By: #### 1 06081, 454908, [id number] ####[facility] [address]rn[address] [place] [address] Medical Director: Fahad Cast MD Basos % 0.6 % Normal [facility] Comment on above: Performed By: #### 1 15785, 579316, 0532631 ####[facility] [address] [place] [id number] Medical Director: Fahad Cast MD Eos Count 0.15 x1000 Normal 0.00-0.50 [facility] Comment on above: Performed By: #### 1 92979, 300129, 9692232 ####[facility] [address] [place] [id number] Medical Director: Fahad Cast MD Eosinophils/100 WBC (Bld) 1.8 % Normal [facility] Comment on above: Performed By: #### 1 28276, 399005, 9232868 ####[facility] [address]jrpyofl31716 [place] [address] Medical Director: Fahad Cast MD Lymphocytes (Bld) [#/Vol] 1.05 x1000 Low 1.20-4.80 [facility] Comment on above: Performed By: #### 1 40250, 103048, 0828441 ####[facility] [address]qhceajn01808 [place] [address] Medical Director: Fahad Cast MD Lymphocytes/100 WBC (Bld) 12.7 % Normal [facility] Comment on above: Performed By: #### 1 83459, 702675, 5002338 ####[facility] [address]ce[address] [place] [address] Medical Director: Fahad Cast MD [place] Count 0.70 x1000 Normal 0.10-1.00 [facility] Comment on above: Performed By: #### 1 60709, 479321, 7102978 ####[facility] [address]rypipng[address] [place] [address] Medical Director: Faahd Cast MD Monocytes/100 WBC (Bld) 8.4 % Normal [facility] Comment on above: Performed By: #### 1 57573, 869983, 0043422 ####[facility] [address] [place] [address] Medical Director: Fahad Cast MD Neutrophils (Bld) [#/Vol] 6.32 x1000 Normal 1.40-8.80 [facility] Comment on above: Performed By: #### 1 23938, 919132, 2387326 ####[facility] Wdrymjle60549 [place] [address] Medical Director: Fahad Cast MD Neutrophils/100 WBC (Bld) 76.4 % Normal [facility] Comment on above: Performed By: #### 1 19179, 033225, 3861754 ####[facility] [address]dfj[address] [place] [address] Medical Director: Fahad Cast MD COMPMETAon 03-10-2020 Albumin [Mass/Vol] 3.4 g/dL Normal 3.4-5.0 [facility] Comment on above: Performed By: #### 1 , 003840, [id number] ####[facility] [address]ucfijj83058 [place] [address] Medical Director: Fahad Cast MD Albumin/Globulin [Mass ratio] 0.8 {ratio} Normal [facility] Comment on above: Performed By: #### 1 , [id number], [id number] ####[facility] [address]vflnxc64780 [place] [address] Medical Director: Fahad Cast MD Alk Phos 71 unit/L Normal 45-117 [facility] Comment on above: Performed By: #### 1 , [id number], 7741216 ####[facility] [address]oy[address]j05[address] [place] [address] Medical Director: Fahad Cast MD Bilirubin [Mass/Vol] 0.37 mg/dL Normal 0.20-1.00 [facility] Comment on above: Result Comment: Use of this assay is not recommended for patients undergoing treatment with eltrombopag due to the potential for falsely elevated results. Performed By: #### 1 , [id number], [id number] ####[facility] [address]d724[address] [place] [address] Medical Director: Fahad Cast MD Calcium [Mass/Vol] 9.4 mg/dL Normal 8.5-10.5 [facility] Comment on above: Performed By: #### 1 , 734726, 9235546 ####[facility] [address]ppeqz755[address] [place] [address] Medical Director: Fahad Cast MD Chloride [Moles/Vol] 108 mmol/L Normal 100-109 [facility] Comment on above: Performed By: #### 1 18299, 146338, 5002690 ####[facility] [address]skbdsv33[address] [place] [address] Medical Director: Fahad Cast MD CO2, venous 28.2 mmol/L Normal 21.0-32.0 [facility] Comment on above: Performed By: #### 1 53259, 778548, 4141564 ####[facility] [address] [place] 62189[address] Medical Director: Fahad Cast MD Creatinine [Mass/Vol] 1.2 mg/dL High 0.6-1.0 [facility] Comment on above: Performed By: #### 1 44260, 411833, 1432755 ####[facility] [address] [place] 62189[address] Medical Director: Fahad Cast MD GFR AA 53 [facility] Comment on above: Result Comment: Afri can Romanian GFR Calc Medical judgement is necessary to [...] for drug dosing. Performed By: #### 1 16250, 122272, 2630734 ####[facility] [address] [place] 62189[address] Medical Director: Fahad Cast MD GFR/1.73 sq M predicted among non-blacks MDRD (S/P/Bld) [Vol rate/Area] 44 mL/min/1.73m? Normal [facility] Comment on above: Result Comment: Non GFR [...] for drug dosing. Performed By: #### 1 40675, 922133, 1445882 ####[facility] [address]l722[address] [place], [place] [id number]) [phone] Director: Fahad Cast MD Globulin (S) [Mass/Vol] 4.0 g/dL Normal [facility] Comment on above: Performed By: #### 1 67934, 813227, 1266641 ####[facility] [address]votabou[address] [place] [address] Medical Director: Fahad Cast MD Glucose [Mass/Vol] 143 mg/dL High 72-100 [facility] Comment on above: Result Comment: Sharon puncture should occur prior to sulfasalazine administration due to the potential for falsely depressed results. Venipuncture should occur prior to sulfapyridine administration due to the potential falsely elevated results. Baseline assay values before administration of sulfasalazine and sulfapyridine therapy would not be affected. Performed By: #### 1 90297, 114991, 9029757 ####[facility] [address]ze[address] [place], [place] [id number]) [phone] Director: Fahad Cast MD GOT 18 unit/L Normal 15-37 [facility] Comment on above: Result Comment: Sharon puncture should occur prior to sulfasalazine and/or sulfapyridine administration due to the potential for falsely depressed results. Baseline assay values before administration of sulfasalazine and sulfapyridine therapy would not be affected. Performed By: #### 1 50202, 545717, 4219374 ####[facility] Jyglsjnr59617 [place], [place] [address]) [phone] Director: Fahad aCst MD GPT 19 unit/L Normal 13-56 [facility] Comment on above: Result Comment: Sharon puncture should occur prior to sulfasalazine and/or sulfapyridine administration due to the potential for falsely depressed results. Baseline assay values before administration of sulfasalazine and sulfapyridine therapy would not be affected. Performed By: #### 1 04146, 519988, 7182913 ####[facility] [address]xmvbhvw52966 [place] [address] Medical Director: Fahad Cast MD Osmolality [Osmolality] 293 mOsm/kg Normal 275-295 [facility] Comment on above: Performed By: #### 1 80022, 412647, 1271645 ####[facility] [address]qlcvc29670 [place] [address] Medical Director: Fahad Cast MD Potassium [Moles/Vol] 4.0 mmol/L Normal 3.5-5.1 [facility] Comment on above: Performed By: #### 1 47964, 860482, 3187530 ####[facility] Axsbwxio56648 [place] [address] Medical Director: Fahad Cast MD Protein [Mass/Vol] 7.4 g/dL Normal 6.0-8.5 [facility] Comment on above: Performed By: #### 1 44707, 890871, 0804021 ####[facility] Tagixkjw74655 [place] [address] Medical Director: Fahad Cast MD Sodium [Moles/Vol] 142 mmol/L Normal 135-145 [facility] Comment on above: Performed By: #### 1 51715, 277400, 0845808 ####[facility] [address]kttx60757 [place] [address] Medical Director: Fahad Cast MD Urea nitrogen [Mass/Vol] 32 mg/dL High 10-20 [facility] Comment on above: Performed By: #### 1 52345, 202185, 4747121 ####[facility] [address]iwbxtbw[address]21 [place] [address] Medical Director: Fahad Cast MD Urea nitrogen/Creatinine [Mass ratio] 26.7 mg/mg Normal [facility] Comment on above: Performed By: #### 1 15855, 155721, 2839679 ####[facility] [address]qqd08330 [place] [address] Medical Director: Fahad Cast MD COVID-19 by PCR SWEDon 03-10 COVID-19 by PCR SWED Positive Abnormal [facility] Comment on above: Result Comment: CALL DEANNA CHRSITIE 03/10/2020 18:23:22 EST BY SHF; RBR Performed By: #### C [id number] ####[facility] [address]xyxlew[address] [place] [id number] Medical Director: Fahad Cast MD CRP QUANTon 03-10-2020 C-Reactive Protein, Quantitative 0.8 mg/dL High 0.0-0.3 [facility] Comment on above: Performed By: #### 1 71898, [id number], [id number], [id number] #### [facility] [address] [place] [address] Director Of Patient Care: Fahad Cast MD CT ABD PELVIS W [...] by: Oni Liu MD 03/10/2020 3:50 PM UNARMED SECURITY OFFICER Technologist: LIEN BLANCA Dictated By: ONI LIU MD Signed By: ONI LIU MD Signed Out: 03/10/20 16:50:49 Normal [facility] D Dimer HSon 03-10-2020 D Dimer HS 264 ng/mL FEU Normal <=499 [facility] Comment on above: Result Comment: Excl usion of PE and DVT The D Dimer HS assay is reported in ng/ml Fibrinogen Equivalent Units (FEU). Per flower arranger?s instructions for use, a value less than 500ng/ml (FEU) may help to exclude DVT and /or PE in outpatients when the assay is used with a clinical pretest probability assessment. D-Dimer used for DIC Screens Assay results should be used with other information, including the clinical context in forming a diagnosis. Performed By: #### 1 80793, [id number], [id number], [id number] #### [facility] Services [address] [place] [address] Director Of Patient Care: Fahad Cast MD ED Physician Reporton 2019 ED Physician Report Patient: BETTIE BURNS Age: 74 years Sex: Female : 1945 Associated Diagnoses: Syncope Author: GLADYS HILARIO DO Basic Information Time seen: Time Seen: CYNTHIA HILARIO DOELLE / 03/10/2020 14:25 . History source: Patient, [...] Line Saline Flush: 3 mL, IV Push, [id number] Documented Medications Documented Eliquis 5 mg oral [...] Interp, Sinus rhythm with first-degree AV block, GA interval 256, QT/QTc/433, incomplete right bundle branch [...] /100WBC NA Lymph % 12.7 % NA [place] % 8.4 % NA Neutrophil % 76.4 % NA Eosin % 1.8 % NA Basos % 0.6 % NA Lymph Count 1.05 x1000 LOW [place] Count 0.70 x1000 NORMAL Neutrophil Count (ANC) [...] by: Monae Hernandez MD 03/10/2020 1:58 PM UNARMED SECURITY OFFICER Signed By: MONAE HERNANDEZ MD CT ABD [...] by: Oni Liu MD 03/10/2020 3:50 PM UNARMED SECURITY OFFICER Signed By: ONI LIU MD . Notes: [...] Course: improving. Impression and Plan Diagnosis Syncope ([id number], Working, Medical) Plan Condition: Stable. Disposition: [...] accurately records my words and actions.. Normal [facility] ED Pre-Arrival Formon 2019 ED Pre-Arrival Form Pre-Arrival Summary Name: STR, Current Date: 03/10/2020 13:52:19 EST Gender: Date of : Age: Pre-Arrival Type: EMS ETA: 03/10/2020 14:15:00 EST Primary Care Physician: Presenting Problem: Pre-Arrival User: Neil Vázquez RN Referring Source: Location: 1 [facility] Emergency Department [id number] [place] [address]. [place] [address] ____ Notes: Vital Signs: Doctor Call Back: DNR Status: Miscellaneous Issues: Normal [facility] ED Progress Noteon 0 ED Progress Note report not put in by previous rn pt here for syncopal episode after diarrhea episode pt has hx of afib. pt covid+ report called to neil ramsey will come get pt Normal [facility] FERRITINon 03-10-2020 Ferritin [Mass/Vol] 32 ng/mL Normal 8-252 [facility] Comment on above: Performed By: #### 1 69752, [id number], [id number], [id number] #### [facility] Services [address] [place] [id number] Director Of Patient Care: Fahad Cast MD HEMOon 03-10-2020 DIFF? No Normal [facility] Comment on above: Performed By: #### 1 42517, 812704, 7509597 ####[facility] [address] [place] [id number]) [phone] Director: Fahad Cast MD Erythrocyte distribution width (RBC) [Ratio] 14.5 % Normal 11.5-14.5 [facility] Comment on above: Performed By: #### 1 76215, 530386, 7529639 ####[facility] Lqfsrvbg21411 [place], [place] [id number]) [phone] Director: Fahad Cast MD Hematocrit (Bld) [Volume fraction] 35.8 % Low 36.0-46.0 [facility] Comment on above: Performed By: #### 1 51437, 718999, 7053208 ####[facility] [address]vow[address] [place] 62[address] Medical Director: Fahad Cast MD Hemoglobin (Bld) [Mass/Vol] 11.7 g/dL Low 12.0-16.0 [facility] Comment on above: Performed By: #### 1 87146, 113748, 5674865 ####[facility] E[address]nvkh[address]51 [place] [id number]) [phone] Director: Fahad Cast MD MCH (RBC) [Entitic mass] 29.4 pg Normal 27.0-34.0 [facility] Comment on above: Performed By: #### 1 98503, 190025, 3600839 ####[facility] [address] [place] [id number]) [phone] Director: Fahad Cast MD MCHC (RBC) [Mass/Vol] 32.7 g/dL Normal 32.0-37.0 [facility] Comment on above: Performed By: #### 1 18989, 118004, 9320037 ####[facility] Euggedbq53253 [place] [address] Medical Director: Fahad Cast MD MCV (RBC) [Entitic vol] 89.8 fL Normal 80.0-100.0 [facility] Comment on above: Performed By: #### 1 31926, 412701, 5026190 ####[facility] Qsmdmceb22825 [place] [address] Medical Director: Fahad Cast MD Nucleated RBC (Bld) [#/Vol] 0 /100WBC Normal [facility] Comment on above: Performed By: #### 1 99639, 329732, 1855986 ####[facility] Feykzetz06027 [place] [address] Medical Director: Fahad Cast MD Platelet mean volume (Bld) [Entitic vol] 6.7 fL Low 7.4-10.4 [facility] Comment on above: Performed By: #### 1 03090, 725996, 9457709 ####[facility] Elhaypuv89783 [place] [address] Medical Director: Fahad Cast MD Platelets (Bld) [#/Vol] 252 x1000 Normal 150-450 [facility] Comment on above: Performed By: #### 1 52682, 994265, 4374062 ####[facility] Rqwrttva17473 [place] [address] Medical Director: Fahad Cast MD RBC (Bld) [#/Vol] 3.99 x10 Low 4.20-5.40 [facility] Comment on above: Result Comment: Note : RBC morphology is normal unless otherwise stated. Evaluation performed only if differential is requested. Performed By: #### 1 15879, 567776, 2928234 ####[facility] [address]zdlgvxs74558 [place] [address] Medical Director: Fahad Cast MD WBC (Bld) [#/Vol] 8.3 10*3/uL Normal [facility] Comment on above: Performed By: #### 1 55670, 227451, 1713022 ####[facility] [address]fcygvgm90963 [place] [address] Medical Director: Fahad Cast MD WBC (Bld) [#/Vol] 8.3 x10 Normal 4.5-11.0 [facility] Comment on above: Performed By: #### 1 12064, 428172, 5739133 ####[facility] Iwwdesty83159 [place] [address] Medical Director: Fahad Cast MD History and [...] ppx: On Eliquis OT MESA on Normal [facility] LACTATEon 03-10-2020 Lactate [Moles/Vol] 1.8 mmol/L Normal 0.4-2.0 [facility] Comment on above: Performed By: #### 1 23117 #### [facility] Services [address] [place] [address] Director Of Patient Care: Fahad Cast MD LIPon 03-10-2020 Lipase [Catalytic activity/Vol] 135 unit/L Normal 73-393 [facility] Comment on above: Performed By: #### 1 93843, 536706, 311622 ####[facility] Mmxzhwnr10858 [place] [address] Medical Director: Fahad Cast MD MG LEVELon 03-10-2020 Magnesium [Mass/Vol] 1.9 mg/dL Normal 1.6-2.6 [facility] Comment on above: Performed By: #### 1 46483, 015532, 162267 ####[facility] Oflwpzcq51789 [place] [address] Medical Director: Fahad Cast MD PCTon 03-10-2020 Procalcitonin <0.05 Normal [facility] Comment on above: Result Comment: INTE RP [...] or septic shock. Performed By: #### 1 91346, [id number], [id number], [id number] #### [facility] Services [address] [place] [address] Director Of Patient Care: Fahad Cast MD TROPONINon 03-10-2020 Troponin I.cardiac [Mass/Vol] ng/mL Normal 0.000-0.099 [facility] Comment on above: Result Comment: This test is a quantitative determination of cardiac troponin I. High levels of serum biotin may interfere with this test. Performed By: #### 1 82463, 039166, 916174 ####[facility] Yvhkxldy18059 [place] [address] Medical Director: Fahad Cast MD XR CHEST [...] by: Monae Hernandez MD 03/10/2020 1:58 PM UNARMED SECURITY OFFICER Technologist: THANG JAMES Dictated By: MONAE HERNANDEZ MD Signed By: MONAE HERNANDEZ MD Signed Out: 03/10/20 14:58:26 Normal [facility] Vital Signs Date Time Vital Sign Value Performing Clinician Facility 06-02-2023 11:19-0500 Body height 165.1 cm Donna Diaz MD Work Phone: [facility] 06-02-2023 11:19-0500 Body mass index (BMI) [Ratio] 28.12 kg/m2 Donna Diaz MD Work Phone: [facility] 06-02-2023 11:19-0500 Body weight 76.66 kg Donna Diaz MD Work Phone: [facility] 06-02-2023 11:19-0500 Diastolic blood pressure 68 mm[Hg] Donna Diaz MD Work Phone: [facility] 06-02-2023 11:19-0500 Heart rate 62 /min Donna Diaz MD Work Phone: [facility] 06-02-2023 11:19-0500 SaO2% (BldA) [Mass fraction] 99 % Donna Diaz MD Work Phone: [facility] 06-02-2023 11:19-0500 Systolic blood pressure 106 mm[Hg] Donna Diaz MD Work Phone: [facility] 05-14-2023 09:38-0500 Body height 165.1 cm Miko Ohara MD Work Phone: [facility] 05-14-2023 09:38-0500 Body mass index (BMI) [Ratio] 29.12 kg/m2 Miko Ohara MD Work Phone: [facility] 05-14-2023 09:38-0500 Body temperature 98.2 [degF] Miko Ohara MD Work Phone: [facility] 05-14-2023 09:38-0500 Body weight 79.38 kg Miko Ohara MD Work Phone: [facility] 10-30-2022 14:45-0400 Body height 165.1 cm Elliot Starks Other [facility] Other 10-30-2022 14:45-0400 Body mass index (BMI) [Ratio] 28.4 kg/m2 Elliot Starks Other [facility] Other 10-30-2022 14:45-0400 Body weight 77.43 kg Elliot Starks Other [facility] Other 10-30-2022 14:45-0400 Diastolic blood pressure 66 mm[Hg] Elliot Starks Other [facility] Other 10-30-2022 14:45-0400 Systolic blood pressure 123 mm[Hg] Elliot Starks Other [facility] Other 06-04-2022 11:30-0500 Body height 165.1 cm Elliot Starks Other [facility] Other 06-04-2022 11:30-0500 Body mass index (BMI) [Ratio] 28.29 kg/m2 Elliot Starks Other [facility] Other 06-04-2022 11:30-0500 Body weight 77.11 kg Elliot Starks Other [facility] Other 06-04-2022 11:30-0500 Diastolic blood pressure 64 mm[Hg] Elliot Starks Other [facility] Other 06-04-2022 11:30-0500 SaO2% (BldA) [Mass fraction] 99 % Elliot Starks Other [facility] Other 06-04-2022 11:30-0500 Systolic blood pressure 104 mm[Hg] Elliot Starks Other [facility] Other Encounters Encounter Date Encounter Type Care Provider Facility Start: 06-01-2024 ambulatory Alfreda Miller Facility:[facility] Start: 06-02-2023 End: 06-02-2023 Office outpatient visit 25 minutes Donna Diaz MD Work Phone: [facility] Comment on above: Paroxysmal atrial fi brillation (CMS-HCC) (Primary Dx); Primary hypertension; Chronic coronary artery disease Start: 06-02-2023 End: 06-02-2023 ambulatory MERCY DIAZ [facility] Start: 06-01-2023 ambulatory ELLIOT STARKS [facility] Start: 05-28-[address] [facility] Start: 05-27-2023 End: 05-28-2023 ambulatory Alfreda Miller Facility:[facility] Start: 05-25-2023 End: 05-26-2023 ambulatory Daisy Liz MD Facility:[facility] Start: 05-18-2023 End: 05-19-2023 ambulatory Daisy Liz MD Facility:[facility] Start: 05-14-2023 ambulatory MIKO OHARA [facility] Start: 05-14-2023 ambulatory MIKO OHARA [facility] Start: 05-14-2023 End: 05-14-2023 Office outpatient new 30 minutes Miko Ohara MD Work Phone: [facility] Comment on above: Pain in prosthetic j oint, initial encounter (Primary Dx); Primary osteoarthritis of right hip Start: 05-14-2023 End: 05-14-2023 Subsequent hospital visit by physician Miko Ohara MD Work Phone: [facility] Start: 03-30-2023 (Televisit) Televisit Elliot Starks [facility] Start: 03-30-2023 End: 03-30-2023 ambulatory Elliot Starks Other [facility] Other Start: 02-11-2023 End: 02-12-2023 ambulatory Alfreda Miller Facility:[facility] Start: 02-11-2023 End: 02-11-2023 Patient encounter procedure Alfreda Miller [facility] Start: 12-29-2022 Preoperative state Dnona franks MD Work Phone: [facility] Start: 11-17-2022 End: 11-17-2022 ambulatory Elliot Starks Other [facility] Other Start: 11-17-2022 Telephone encounter Elliot St[facility] Start: 11-06-2022 ambulatory Alfreda Miller Facility:[facility] Start: 10-30-2022 End: 10-30-2022 ambulatory Elliot Starks Other [facility] Other Start: 10-30-2022 Office outpatient vi sit 15 minutes [facility] Start: 10-29-2022 End: 10-29-2022 ambulatory Elliot Starks Other [facility] Other Start: 10-29-2022 Telephone encounter [facility] Start: 10-27-2022 Nursing evaluation o f patient and report [facility] Start: 10-27-2022 End: 10-27-2022 ambulatory Elliot Starks [facility] Other Start: 10-27-2022 End: 10-27-2022 Departed Referred MD Elliot Starks Work Phone: [facility] [place] Work Phone: Start: 09-11-2022 Telephone encounter Matt Duron Hematology/Oncology Comment on above: Orders Start: 08-11-2022 End: 08-11-2022 ambulatory Elliot Starks Other [facility] Other Start: 08-11-2022 Nursing evaluation o f patient and report [facility] Start: 07-17-2022 (Televisit) Televisit Elliot Starks [facility] Start: 07-17-2022 End: 07-17-2022 ambulatory Elliot Starks Other [facility] Other Start: 06-23-2022 End: 06-23-2022 ambulatory Elliot Starks Other [facility] Other Start: 06-23-2022 Nursing evaluation o f patient and report [facility] Start: 06-09-2022 End: 06-09-[address] ELLIOT STARKS Facility:[facility] Start: 06-06-2022 End: 06-06-2022 ambulatory Elliot Starks Other [facility] Other Start: 06-06-2022 Telephone encounter [facility] Start: 06-04-2022 End: 06-04-2022 ambulatory Elliot Starks Other [facility] Other Start: 06-04-2022 Office outpatient vi sit 25 minutes [facility] Start: 05-21-2022 End: 05-21-2022 ambulatory Elliot Starks Other [facility] Other Start: 05-21-2022 Telephone encounter [facility] Start: 04-26-2022 End: 04-26-[address] ELLIOT STARKS Facility: Start: 04-14-2022 End: 04-14-[address] ELLIOT STARKS Facility: Start: 12-18-2021 End: 12-18-2021 ambulatory Melchor Goff Ragland Facility:[facility] Start: 10-03-2021 Telephone encounter Andrew black MD Work Phone: Hematology/Oncology Comment on above: Lab Orders Start: 09-26-2021 Telephone encounter Elton jimenez RN Work Phone: Hematology/Oncology Comment on above: Radiology Mammogram Start: 12-02-2016 End: 12-03-2016 Ambulatory DEFAULT PHYSICIAN Facility:[facility] Procedures Date Procedure Procedure Detail Performing Clinician Start: 06-02-2023 Ecg routine ecg w/le ast 12 lds w/i&r Donna Diaz MD Work Phone: Start: 06-02-2023 Follow-up visit Follow-up DONNA DIAZ Start: 05-14-2023 Heavy metal quantiat david each tiffany Miko Ohara MD Work Phone: Start: 09-25-2020 Mammography Elton jimenez RN Work Phone: Start: 10-07-2019 Adult depression scr eening assessment Elton Dominguez RN Work Phone: Start: 04-08-2017 Colonoscopy Donna short MD Work Phone: Start: 01-01-2017 Screening [...] Adult BMI Screening Adult BMI Screen ing [facility] Start: 06-02-2024 Tobacco Screening Tobacco Screening [facility] Start: 10-09-2023 DIABETES SCREEN DIABETES SCREEN [facility] Start: 05-28-2023 End: 05-28-2023 Patient encounter procedure 05/28/2023 11:00 AM EST Office Visit [facility] [address] [place] [address] Antelmo Richey, DO [address] [place] [address] [facility] Start: 05-14-2023 End: 05-14-2024 MR Hip - right WO contrast MRI HIP RIGHT WITHOUT CONTRAST Imaging Routine Pain in prosthetic joint, initial encounter Expected: 05/14/2023, Expires: 05/14/2024 [facility] Comment on above: Expected: 05/14/2023 , Expires: 05/14/2024 Start: 01-02-2023 COVID-19 VACCINE ( season) COVID-19 VACCINE ( season) [facility] Start: 01-02-2023 Influenza vaccination INFLUENZA (Sea son Ended) [facility] Start: 10-27-2022 Bacteria identified in Urine by Culture [facility] Start: 05-04-2022 ADVANCE DIRECTIVE DISCUSSION ADVANCE DIRECTIVE DISCUSSION [facility] Start: 05-04-2022 DEPRESSION ASSESSMENT DEPRESSION ASS ESSMENT [facility] Start: 04-08-2022 Screening for malign ant neoplasm of colon Colonoscopy [facility] Start: 01-02-2022 Influenza vaccination INFLUENZA (Sea son Ended) [facility] Start: 10-07-2021 End: 12-07-2021 Cancer Ag 27-29 [Units/volume] in Serum or Plasma CA 27.29 BLOOD Lab Routine Malignant neoplasm of upper-outer quadrant of left breast in female, estrogen receptor positive (HCC) Expected: 10/07/2021, Expires: 12/07/2021 [facility] Work Phone: Comment on above: Expected: 10/07/2021 , Expires: 12/07/2021 Start: 10-07-2021 End: 12-07-2021 CBC W Auto Differential panel - Blood CBC + DIFF Lab Routine Malignant neoplasm of upper-outer quadrant of left breast in female, estrogen receptor positive (HCC) Expected: 10/07/2021, Expires: 12/07/2021 [facility] Work Phone: Comment on above: Expected: 10/07/2021 , Expires: 12/07/2021 Start: 10-07-2021 End: 12-07-2021 Comprehensive metabolic 2000 panel - Serum or Plasma COMP METABOLIC PANEL Lab Routine Malignant neoplasm of upper-outer quadrant of left breast in female, estrogen receptor positive (HCC) Expected: 10/07/2021, Expires: 12/07/2021 [facility] Work Phone: Comment on above: Expected: 10/07/2021 , Expires: 12/07/2021 Start: 09-25-2021 Mammography MAMMOGRAM [facility] Start: 05-04-2021 ADVANCE DIRECTIVE DISCUSSION ADVANCE DIRECTIVE DISCUSSION [facility] Start: 11-17-2020 COVID-19 VACCINE (3 - Booster for Pfizer series) COVID-19 VACCINE (3 - Booster for Pfizer series) [facility] Start: 10-06-2020 Adult depression screening assessment DEPRESSION SCREENING [facility] Start: 08-15-2020 COVID-19 VACCINE (3 - Booster for Pfizer series) COVID-19 VACCINE (3 - Booster for Pfizer series) [facility] Start: 01-05-2019 PNEUMOCOCCAL: 65+ (2 - PCV) PNEUMOCOCCAL: 65+ (2 - PCV) [facility] Start: 07-07-2012 BONE DENSITY BONE DENSITY [facility] Start: 07-07-2012 Fall Risk Screening Fall Risk Screen ing [facility] Start: 07-07-1997 Administration of varicella zoster vaccine Zoster (Shingles) Vaccine (1 of 2) [facility] Start: 07-07-1997 SHINGRIX VACCINE (1 of 2) SHINGRIX VACCINE (1 of 2) [facility] Start: 07-07-1997 Zoster vaccine hzv l david for subcutaneous use ZOSTER (SHINGLES) VACCINE (1 of 2) [facility] Start: 07-07-1992 COLOGUARD (FIT-DNA) COLOGUARD (FIT-D NA) [facility] Start: 07-07-1992 Colonoscopy COLONOSCOPY [facility] Start: 07-07-1992 COLORECTAL CANCER SCREENING COLORECTAL CANCER SCREENING [facility] Start: 07-07-[address] COLONOGRAPHY [facility] Start: 07-07-1992 FECAL OCCULT BLOOD FECAL OCCULT BLOO D [facility] Start: 07-07-1992 LIPID SCREEN LIPID SCREEN [facility] Start: 07-07-1992 Screening for malign ant neoplasm of colon COLORECTAL CANCER SCREENING DISCUSSION [facility] Start: 07-07-1992 SIGMOIDOSCOPY SIGMOIDOSCOPY [facility] Start: 1987 Lipid panel LIPID SCREENING [facility] Start: 1987 Screening for malign ant neoplasm of breast MAMMOGRAM SCREENING DISCUSSION [facility] Start: 07-07-1968 Screening for malign ant neoplasm of cervix CERVICAL CANCER SCREENING DISCUSSION [facility] Start: 07-07-1966 DTaP,Tdap and Td Vaccines (1 - Tdap) DTaP,Tdap and Td Vaccines (1 - Tdap) [facility] Start: 07-07-1966 Third diphtheria, tetanus and acellular pertussis (DTaP) vaccination TDAP (ADULT) [facility] Start: 07-07-1966 Urine microalbumin profile DTAP,TDAP,TD (1 - Tdap) [facility] Start: 07-07-1965 Adult BMI Follow Up Plan Adult BMI F ollow Up Plan [facility] Start: 07-07-1965 HEPATITIS C SCREENING HEPATITIS C SC GUNNER [facility] Start: 1959 Depression Screening Depression Scre ening [facility] Start: 07-07-1953 PNEUMOCOCCAL: 65+ (1 - PCV) PNEUMOCOCCAL: 65+ (1 - PCV) [facility] Start: 1945 Hepatitis C screening HEPATITI S C VIRUS SCREENING [facility] Start: 1945 Medicare Annual Well ness Visit Medicare Annual Wellness Visit [facility] Start: 1945 Potassium [Moles/vol ume] in Serum or Plasma POTASSIUM [facility] Start: 1945 Screening for osteoporosis DEXA SCAN DISCUSSION [facility] Start: 1945 Tetanus vaccination TETANUS [facility] End: 10-26-2022 AUGUSTINA SCREENING W YAW AUGUSTINA SCREENING W YAW Radiology Routine Encounter for screening mammogram for malignant neoplasm of breast 1 Occurrences starting 09/26/2021 until 10/26/2022 [facility] Work Phone: Comment on above: 1 Occurrences starti ng 09/26/2021 until 10/26/2022 End: 10-11-2023 AUGUSTINA SCREENING W YAW AUGUSTINA SCREENING W YAW Radiology Routine Encounter for screening mammogram for malignant neoplasm of breast 1 Occurrences starting 09/11/2022 until 10/11/2023 [facility] Work Phone: Comment on above: 1 Occurrences starti ng 09/11/2022 until 10/11/2023 XR Pelvis and Hip - right Views XR HIP WITH PELVIS RIGHT Imaging Routine Primary osteoarthritis of right hip 05/14/2023 9:20 AM [facility] Work Phone: [facility] Immunizations Immunization Date Immunization Notes Care Provider [facility] 02-10-2023 influenza virus vaccine, unspecified formulation Alfreda Lue [facility] 02-01-2022 influenza virus vaccine, unspecified formulation Alfreda Lue [facility] 08-13-2021 SARS-CoV-2 mRNA (pfanltlcyez-ajao-lyrfj se) vaccine Alfreda Lue [facility] 01-29-2021 SARS-CoV-2 (COVID-19 ) mRNA BNT-162b2 vax Alfreda Lue [facility] Comment on above: Result Comment: 2022: [id number] 06-20-2020 COVID-19 vaccine, ag e 12+ yr ([employer] - PURPLE TOP) Elton Dominguez RN Work Phone: [facility] 05-28-2020 SARS-CoV-2 (COVID-19 ) mRNA BNT-162b2 vax Alfreda Lue [facility] 05-18-2020 COVID-19 vaccine, ag e 12+ yr (PFIZER-[employer] - PURPLE TOP) Elton Dominguez RN Work Phone: [facility] 01-27-2020 influenza virus vaccine, split virus (incl. purified surface antigen) Elliot Starks Other [facility] Other 01-27-2020 influenza virus vaccine, unspecified formulation Alfreda Lue [facility] 01-20-2019 influenza virus vaccine, unspecified formulation Alfreda Lue [facility] 01-20-2019 influenza, high dose seasonal, preservative-free Elton Dominguez RN Work Phone: [facility] 03-09-2018 influenza virus vaccine, unspecified formulation Alfreda Lue [facility] 01-05-2018 influenza virus vaccine, split virus (incl. purified surface antigen) Elliot Starks Other [facility] Other 01-05-2018 influenza virus vaccine, unspecified formulation Alfreda Lue [facility] 01-05-2018 influenza, high dose seasonal, preservative-free Elton Dominguez RN Work Phone: [facility] 01-05-2018 pneumococcal polysaccharide vaccine, 23 valent Elton Dominguez RN Work Phone: [facility] 02-25-2017 influenza virus vaccine, unspecified formulation Alfreda Lue [facility] 02-17-2017 pneumococcal polysaccharide vaccine, 23 valent Alfreda Lue [facility] 02-05-2017 influenza virus vaccine, split virus (incl. purified surface antigen) Elliot Starks Other [facility] Other 02-05-2017 influenza virus vaccine, unspecified formulation Alfreda Miller [facility] 02-05-2017 pneumococcal conjuga te vaccine, 13 valent Alfreda Miller [facility] 02-01-2002 pneumococcal polysaccharide vaccine, 23 valent Elliot Starks Other [facility] Other Payers Date Payer Category Payer Private Health Insurance 2022 Self-pay 2014 Medicare AETNA MEDICARE A ETNA MEDICARE PPO [id number] 2014-Present [phone] [address] [place] [address] PPO [id number] 2014 Medicare [id number] 1959 Medicare [id number] 1945 Unknown [id number] 93 1947 Unknown [id number] [id number] 93 1947 Unknown [id number] 2.16.840.1.002562.3.579.2.5 93 1947 Unknown [id number] 2.16.840.1.250902.3.579.2.7 18 1947 Unknown [id number] 2.16.840.1.055280.3.579.2.1 96 1947 Unknown [id number] 2.16.840.1.889627.3.579.2.1 96 1947 Unknown [id number] 2.16.840.1.100225.3.579.2.9 83 1947 Unknown [id number] 2.16.840.1.536287.3.579.2.9 83 1947 Unknown [id number] 2.16.840.1.058760.3.579.2.9 83 1947 Unknown [id number] 2.16.840.1.486962.3.579.2.9 83 1947 Unknown [id number] 2.16.840.1.489296.3.579.2.9 83 1947 Unknown [id number] 2.16.840.1.738727.3.579.2.7 27 1947 Unknown [id number] 2.16.840.1.159951.3.579.2.7 27 1947 Unknown [id number] 2.16.840.1.656552.3.579.2.7 27 1947 Unknown [id number] [id number] 286 Private Health Insurance [facility] [id number] Unknown Unknown [id number] 31 Social History Date Type Detail Facility Start: 12-03-2015 End: 03-31-2022 Tobacco smoking status NHIS Ex-smoker [facility] End: 12-05-1990 History of tobacco use Current smoker [facility] Start: 12-03-2015 End: 05-15-2020 Cigarettes smoked current (pack per day) - Reported 1 [facility] Start: 12-03-2015 End: 03-31-2022 Tobacco use and exposure Smokeless tobacco non-user [facility] Start: 10-08-2020 End: 06-02-2023 Alcohol intake Current drinker of alcohol (finding) [facility] Start: 1945 Sex Assigned At Not on file [facility] Start: 05-15-2020 End: 05-14-2023 Sex Assigned At [facility] End: 12-05-1990 History of tobacco use Cigarette Smoker [facility] Start: 1945 Sex Assigned At Female F [facility] Tobacco smoking status Never [facility] Start: 05-14-2023 Tobacco smoking stat us NHIS Never smoked tobacco [facility] Start: 03-31-2022 Tobacco Comment quit in 1989 [facility] Start: 03-19-2017 Alcohol Comment social [facility] Start: 05-09-2018 Gender identity Identifies as female gender (finding) [facility] Functional Status Date Assessment Result Facility 02-11-2023 Functional Status N/A [facility] Clinical Notes 09-26-2021 to 06-02-2023 Donna Diaz MD - 06/02/2023 2:30 PM Lena Boudreaux - 05/14/2023 9:30 AM Joseph Ohara MD - 05/14/2023 9:30 AM EST Note Date & Type Note Facility 06-02-2023 History of Present illness Narrative Bettie Carroll [facility] Date of visit: 06/02/2023 Date of : 1945 Age: 77 y.o. Patient Active Problem List Diagnosis Paroxysmal atrial fibrillation (CMS-HCC) Hypertension SOB (shortness of breath) Dyspnea Palpitations [...] prior cardiac ablation for atrial fibrillation in 2018. She is here for follow-up visit. She [...] issues. Past Medical History: Diagnosis Date A-fib ([facility]) hx of Arrhythmia 12/2016 ATRIAL FIBRILLATION Arthritis Breast cancer ([facility] [place]) 11/14/2015 LEFT COVID-19 03/2020 History of bleeding ulcers Hypertension Migraines Pneumonia d/t covid Prolonged emergence from general anesthesia Visual impairment glasses No data recorded No data recorded No data recorded Past Surgical History: Procedure Laterality Date ABLATION OF DYSRHYTHMIC FOCUS Right nerve ablation, L4 and L5 Afib ablation with SHANICE - CRYO, Rhythmia, ICE N/A 09/28/2018 Performed by Amber Quiñonez MD at [facility] () ARTHROSCOPY REPAIR ROTATOR CUFF SHOULDER Right 05/16/2020 Performed by Melchor Rivera DO at [facility] ARTHROSCOPY SHOULDER Right 05/16/2020 Performed by Melchor Rivera DO at [facility] BREAST BIOPSY Left 2015 BREAST LUMPECTOMY Left 11/14/2015 WITH RADIATION BREAST SURGERY Left 2012 lumpectomy CATARACT EXTRACTION CHOLECYSTECTOMY COLONOSCOPY Coronary angiogram and left ventricular gram/pressure N/A 08/08/2021 Performed by Bertram Lal MD at [facility] CARDIAC CATH LABS EYE SURGERY lids [...] STARKS MD Referring Physician: Elliot Starks MD [employer] [place] [address] [facility] History of Present illness Narrative Ortho Nurse - Patient Intake 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 Referring Physician: Self, Self Insurance: Payor: MEDICARE AETNA HMO OR PPO / Plan: MEDICARE AETVizsafe PPO / Product Type: *No Product type* [...] [x]cane, []bracing Are you followed by a athletic equipment manager? [x] [] Name: Dr. Waleska Lowe Are you followed by pain management? [x] [] Name: Dr. Wilian Wayne @ [facility] Are you followed by any other specialists? [x] [] Name: Oncolgist - Dr. Choi [facility] Urologist - Dr. Christian Bourne Outpatient Medications [...] abductor muscles as well as ESR/CRP and [place] and Chromium labs today. I will see [...] APPENDECTOMY BREAST LUMPECTOMY FOOT SURGERY HEART CATHETERIZATION GA ENDOMETRIAL CRYOABLATION REMOVAL BILIARY DUCT/GALLBLADDER CALCULI/DEBRIS PERCUTANEOUS [...] Oxycodone Penicillins Tramadol documented in this encounter [facility] 03-30-2023 Evaluation note Encounter Date Diagnosis Assessment [...] verbalizes understanding and agrees with tx plan. [facility] Other 10-11-2023 NoteChief Complaint Referral *Frequent UTI [...] states that she was put on a terminal manager abx which has helped a lot. Pt [...] a hematuria workup including a scope, at [facility]. Occasional visible blood w/UTI. UA today shows moderate blood. Discussed doing a hematuria workup if the pt would like to. Pt states that she is not worried aboutthis and does not see the need to have t (more content not included)...[facility]:Result Comment: Electronically Signed By: Paul VILLEGAS, Alfreda [email or web address]\Date and Time Signed: 02/11/23 12:13EDT\.br\Electronically Co-Signed By: Karlee Ramos.cassandra\Date and Time Co-Signed: 02/11/23 11:16 [id number] Hospital Discharge instructions Patient Education 02/11/2023 11:16:08 [...] provider. Document Revised: 08/29/2021 Document Reviewed: 08/29/2021 [employer] Patient Education 2022 [employer]. Follow Up Care 11/06/2022 15:31:52 With:Paul VILLEGAS, Alfreda Palacios URL, URO Address: When:Within 3 Month(s) [facility] 07-17-2023 Evaluation note* Encounter Date Diagnosis Assessment Notes Treatment Notes Treatment Clinical Notes Nov, Dysuria (ICD-10 - R30.0) [facility] Other 06-29-2023 Evaluation note* Encounter Date Diagnosis Assessment Notes Treatment Notes Treatment Clinical Notes Oct, Frequent UTI (ICD-10 - N39.0) Pt requests Urology referral. Discussed also getting CT to move along process. Oct, Dyshidrotic eczema (ICD-10 - L30.1) Will treat with steroid cream prn [facility] Other 06-26-2023 Evaluation note* Encounter Date Diagnosis Assessment Notes Treatment Notes Treatment Clinical Notes Oct, Dysuria (ICD-10 - R30.0) [facility] Other 05-11-2023 Miscellaneous Notes* Telephone Encounter - Matt Adams RN - 09/11/2022 11:43 AM EDT Order faxed to [facility] and pt is aware. Matt Adams RN * Telephone Encounter - Matt Adams RN - 09/11/2022 9:51 AM EDT Pt called to request yearly Mammogram order I have pended order as previously completed Pt requests to fax to Nori Lema [phone] BRM/HM: please review and sign if agreeable Matt Adams, RN [facility]* Encounter Date Diagnosis Assessment Notes Treatment Notes Treatment Clinical Notes Aug, Dysuria (ICD-10 - R30.0) [facility] Other 03-16-2023 Evaluation note* Encounter Date Diagnosis [...] N32.81) chronic and improved on present med [facility] Other 02-20-2023 Evaluation note* Encounter Date Diagnosis Assessment Notes Treatment Notes Treatment Clinical Notes Jun, Dysuria (ICD-10 - R30.0) [facility] Other 02-03-2023 Evaluation note* Encounter Date Diagnosis Assessment Notes Treatment Notes Treatment Clinical Notes Jun, OAB (overactive bladder) (ICD-10 - N32.81) [facility] Other 02-01-2023 Evaluation note* Encounter Date Diagnosis Assessment Notes Treatment Notes Treatment Clinical Notes Jun, OAB (overactive bladder) (ICD-10 - N32.81) Patient request to try new medication reviewed side effect profile. Patient declines urology or VACUUM FRAME OPERATOR referral at this time. Jun, Essential hypertension (ICD-10 - I10) reviewed and updated medications she will follow-up with cardiology in Jun, Hypokalemia (ICD-10 - E87.6) Reviewed and updated medications. Discussed foods that are high in potassium Jun, Right lumbar pain (ICD-10 - M54.50) Follow-up with Dr. Rivera as scheduled in June. She does have limping with her gait. [facility] Other 05-26-2022 Miscellaneous Notes* Telephone Encounter - Andrew Choi MD - 09/26/2021 5:13 PM EDT Okay to change to screening mammogram. Order signed. ASIYA Ford * Telephone Encounter - Elton Dominguez RN - 09/26/2021 2:33 PM EDT Pt scheduled for diagnostic mamm tomorrow @ [facility]. Hospital calls to ask if this could be changed to a screening mammogram since the pt is greater than 2 years from diagnosis? Elton Dominguez RN [facility] Future Appointments Appointment Date:05/27/2023 08:45:00 AM Scheduled Provider:Alfreda Miller MD Location:[facility] Appointment Type:URO Office Visit [facility] evaluation note* Diagnosis Encounter for screening mammogram for malignant neoplasm of breast- Primary Other screening mammogram documented in this encounter [facility] note* Diagnosis Malignant neoplasm of upper-outer quadrant of left breast in female, estrogen receptor positive (HCC)- Primary documented in this encounter [facility] noteNo InformationNort [email or web address] Other Evaluation note* Diagnosis Encounter for screening mammogram for malignant neoplasm of breast- Primary Other screening mammogram documented in this encounter [facility] noteNo assessment information [facility] Work Phone: Evaluation note* Diagnosis Pain in prosthetic joint, initial encounter- Primary Primary osteoarthritis of right hip Primary localized osteoarthrosis, pelvic region and thigh [facility] Diagnosis Paroxysmal atrial fibrillation (CMS-HCC)- Primary Atrial fibrillation Primary hypertension Unspecified essential hypertension Chronic coronary artery disease Coronary atherosclerosis of unspecified type of vessel, [place] or graft documented in this encounter [facility] general Narrative - Reported* Type Description Date [...] replacement 12/16/2021 Hospitalization History SEE SURGICAL HX [facility] Other Hospital course Narrative No data available for this section [facility] InstructionsNot on filedocumented in this encounter [employer] note No data available for this section [facility] reason for referral (narrative)* Diagnostic Procedure Only (Routine) - Pending Review Specialty Diagnoses / Procedures Referred By Juan wren Referred To Contact [facility] Diagnoses Encounter for screening mammogram for malignant neoplasm of breast Procedures AUGUSTINA SCREENING W YAW SCREENING DIGITAL BREAST TOMOSYNTHESIS BI SCREENING MAMMOGRAPHY BI 2-VIEW BREAST INC Andrew Miguel MD [address] [place] [address] [place] [address] [facility] [address] [place] [phone] Referral ID Status Reason Start Date Expiration Date Visits Requested Visits Authorized [id number] Pending Review Auto-Generat ed Referral 09/26/2021 10/26/2022 1 1 [facility] for referral (narrative)* Diagnostic Procedure Only (Routine) - Pending Review Specialty Diagnoses / Procedures Referred By Juan wren Referred To Contact [facility] Diagnoses Encounter for screening mammogram for malignant neoplasm of breast Procedures AUGUSTINA SCREENING W YAW SCREENING DIGITAL BREAST TOMOSYNTHESIS BI SCREENING MAMMOGRAPHY BI 2-VIEW BREAST INC Andrew Miguel MD [facility] [place] [address] [facility] [address] [place] [address] Referral ID Status Reason Start Date Expiration Date Visits Requested Visits Authorized [id number] Pending Review Auto-Generat ed Referral 09/11/2022 10/11/2023 1 1 [facility] Summary Purpose Family History No Family History Records FoundNo Family History Records FoundNo Family History Records FoundNo Family History Records FoundNo Family History Records FoundNo Family History Records Found No data available for this section No Family History Records FoundNo Family History Records FoundNo Family History Records FoundNo Family History Records FoundNo Family History Records Found Advance Directives No Advanced Directives Records FoundDocuments on File Type Date Recorded Patient Science Tutor Expl anation Living Will 05/21/2020 9:37 AM Durable Power of Financial Sales Representative 05/21/2020 9:27 AM Durable Power of Financial Sales Representative 05/16/2020 6:05 AM Living Will 05/16/2020 6:04 AM Reason for Referral Specialty Diagnoses / Procedures Referred By Contac t Referred To Contact Diagnoses Pain in prosthetic joint, initial encounter Procedures MRI HIP RIGHT WITHOUT CONTRAST GA MRI LOWER EXTREM JT, W/O CONTRAST Miko Ohara MD [address] [place] [id number] Referral ID Status Reason Start Date Expiration Date V isits Requested Visits Authorized [id number] New Request 05/14/2023 06/07/2024 1 1 Specialty Diagnoses / Procedures Referred By Contac t Referred To Contact Diagnoses Pain in prosthetic joint, initial encounter Procedures COBALT AND CHROMIUM,WB Miko Ohara MD [address] [place] [id number] Referral ID Status Reason Start Date Expiration Date V isits Requested Visits Authorized [id number] New Request 05/14/2023 06/07/2024 1 1 Specialty Diagnoses / Procedures Referred By Contac t Referred To Contact Diagnoses Primary osteoarthritis of right hip Procedures XR HIP WITH PELVIS RIGHT Miko Ohara MD [address] [place] [id number] Referral ID Status Reason Start Date Expiration Date V isits Requested Visits Authorized [id number] New Request 05/06/2023 05/30/2024 1 1 Reason *FU 11/12 [facility] office Diagnosis 1 Frequent UTI (N39.0) Referral Organization [facility] linmanuel Referring Provider First Name Elliot Referring Provider Last Name Raudel Referring Provider Specialty Family [facility] Referred Organization [facility] Referred Provider PAULAFLREDA Referred Address [address] [place],[address] Referred Provider Specialty Urology Referral Priority Routine General Notes Victoria Lsia 11:03:05 AM >received today, notes attached, along with labs and ins, waiting for notes to be locked before faxing Victoria Lisa 11/05/2022 02:44:05 PM >referral faxed Additional Source Comments INFORMATION SOURCE (unrecogn ized section and content) DATE CREATED AUTHOR 10/28/2017 [facility] DATE CREATED AUTHOR AUTHOR'S ORGANIZ ATION 03/21/2020 [facility] DATE CREATED AUTHOR AUTHOR'S ORGANIZ ATION 09/13/2021 [facility] Specialist DATE CREATED AUTHOR AUTHOR'S ORGANIZ ATION 06/11/2022 [facility] DATE CREATED AUTHOR AUTHOR'S ORGANIZ ATION 09/13/2022 [facility] DATE CREATED AUTHOR AUTHOR'S ORGANIZ ATION 11/18/2022 [facility] DATE CREATED AUTHOR AUTHOR'S ORGANIZ ATION 05/20/2023 [facility] DATE CREATED AUTHOR AUTHOR'S ORGANIZ ATION 05/29/2023 [facility] DATE CREATED AUTHOR AUTHOR'S ORGANIZ ATION 06/02/2023 [facility] DATE CREATED AUTHOR AUTHOR'S ORGANIZ ATION 06/06/2023 [facility] DATE CREATED AUTHOR AUTHOR'S ORGANIZ ATION 06/07/2023 [facility] Source Comments (unrecognize d section and content) In the event this informatio n is protected by the Federal Confidentiality of Alcohol and Drug Abuse Patient Records regulations: The Federal rules restrict any use of the information to criminally investigate or prosecute any alcohol or drug abuse patient.[facility] the event this information is protected by the Federal Confidentiality of Alcohol and Drug Abuse Patient Records regulations: The Federal rules restrict any use of the information to criminally investigate or prosecute any alcohol or drug abuse patient.[facility] the event this information is protected by the Federal Confidentiality of Alcohol and Drug Abuse Patient Records regulations: The Federal rules restrict any use of the information to criminally investigate or prosecute any alcohol or drug abuse patient.[facility] Reason for Visit (unrecogniz ed section and content) Reason Comments Radiology Mammogram Reason Comments Lab Orders Reason Comments Orders Specialty Diagnoses / Procedures Referred By Contac t Referred To Contact Diagnoses Primary osteoarthritis of right hip Procedures XR HIP WITH PELVIS RIGHT Miko Ohara MD [address] [place] [address] Referral ID Status Reason Start Date Expiration Date V isits Requested Visits Authorized [id number] New Request 05/06/2023 05/30/2024 1 1 Reason Comments Pain Reason Comments Follow-up est pt concerns of a fib per smart watch wants seen sooner. sched w/pt pt will arrive at 11:30 Care Teams (unrecognized sec tion and content) Crime Laboratory Analyst Relationship Specialty Start Date End Date Elliot Starks MD [address] [place] [address] PCP - General Family Practice 11/26/15 Crime Laboratory Analyst Relationship Specialty Start Date End Date Elliot Starks MD [address] [place] [address] PCP - General Family Practice 11/26/15 Crime Laboratory Analyst Relationship Specialty Start Date End Date Elliot Starks MD [address] [place] [address] PCP - General Family Medicine 11/26/15 Team Status: Inactive Member Role Status Dates Elliot Starks MD Attending Provider Active Crime Laboratory Analyst Relationship Specialty Start Date End Date Elliot Starks MD [address] [place] [address], [place] [address] PCP - General Family Medicine 05/11/23 Crime Laboratory Analyst Relationship Specialty Start Date End Date Elliot Starks MD [address] [place] [address], [place] [id number] PCP - General Family Medicine 05/11/23 Crime Laboratory Analyst Relationship Specialty Start Date End Date Elliot Starks MD [address] [place] [address], [place] [id number] PCP - General 03/17/17 Goals (unrecognized section [...] BE BASED ON THE PRIMARY CLINICAL RECORDS. [facility] [employer] [facility] provides no warranty or guarantee of the accuracy or completeness of information in this document.
[2023-06-08 07:53] VITALS: BP 125/78; PULSE 67; RESP 16; TEMP 36; O2SAT 97
[2023-06-08 08:47] VITALS: PULSE 57; RESP 18; O2SAT 97
[2023-06-08] MEDS: LIDOCAINE HCL 2% PF 100 MG/5 ML VIAL INJ (08:47)
[2023-06-08] MEDS: BUPIVACAINE HCL 0.25% PF 25 MG/10 ML VIAL INJ (08:47)
[2023-06-08 08:48] VITALS: RESP 18
[2023-06-08 08:50] VITALS: PULSE 64; O2SAT 98
[2023-06-08 08:51] VITALS: BP 111/55
--- NOTE | 2023-06-08 08:51 | W.PM.PROCNOT ---
Date of procedure: 06/08/23 Pre-op diagnosis: Cervical spondylosis Procedure: Procedure: Bilateral C4-5, 5-6 medial branch block Medications: Bupivacaine 0.25% 6cc The patient was seen and examined in the preoperative holding area.? The informed consent was obtained and placed on the chart.? The patient was brought to the medical procedure unit and placed in the prone position.? A timeout was completed verifying correct patient, procedure site, positioning, plan, and special equipment.? Using aseptic technique, the needle was placed at left C4.? Under direct fluoroscopic visualization, a Quincke tip needle was advanced to the midpoint of the waist of the articular pillar at the respective medial branch segment. The above-mentioned injectate was placed in a 1 mL aliquot proceeded by negative aspiration.? The needle was removed.? The procedure was completed at all left C5, 6. The same procedure, at the same levels, was then completed on the right side. Insertion site was covered.? Patient was taken to the postprocedural recovery area and monitored for an appropriate length of time before found suitable for discharge in the accompaniment of a responsible adult. Anesthesia: Local Surgeon: Daisy Liz Pathology: none sent Condition: stable Disposition: no change
[2023-06-10 16:27] VITALS: BP 110/58
== END 2023-06-08 08:56 | disposition home or self-care (01) ==
PROVIDERS: PCP Family Medicine; Visit Provider Anesthesiology
DX: M47.812 Spondylosis without myelopathy or radiculopathy, cervical region (principal)
CPT/HCPCS: 64490; 64491; J0665

== ENCOUNTER 2023-06-18 07:44 | Outpatient (OUT) | payer MEDICARE, SELFPAY ==
--- OUTSIDE RECORDS SUMMARY | 2023-06-18 07:47 | XMS_ITS | CCD ---
Author Name Unknown Address [address] [place] [address] Organization [facility] Care Team Providers Care Civil Design Specialist Name Role Phone PHYSICIAN, DEFAULT Unavailable Unavailable PHYSICIAN, DEFAULT Unavailable Unavailable Elliot Starks MD Primary Care Provider DR ELLIOT STARKS Primary Care Unavailable ANEAT EDUARDO Admzeina Unavailable ANETA EDUARDO Attending Unavailable [...] Care Provider MD Elliot Starks Attending Provider Elliot Starks Admitting Unavailable Elliot Starks Attending Unavailable ELLIOT STARKS Primary Care Physician Elliot Starks MD Primary Care Provider Melchor [...] Unavailable Elliot Starks MD Primary Care Provider Alfreda Miller Attending Unavailable ELLIOT STARKS Referring Unavailable Alfreda Miller Attending Unavailable Alfreda Miller Attending Unavailable DONNA DIAZ Attending Unavailable ELLIOT STARKS Referring Unavailable ELLIOT STARKS Primary Care Unavailable Allergies Allergy Classification Reported Allergen(s) Allergy Type Date of Onset Reaction(s) Facility (5 sources) Acetaminophen / HYDROcodone; 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: [HYDROCODONE-ACET AMINOPHEN] Drug Allergy 03-19-20 17 Unknown, Itching, Rash [facility] (18 sources) Baclofen; 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: [baclofen] Drug Allergy 03-19-20 17 Unknown, Itching, Rash [facility] (9 sources) Codeine; 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: [codeine] Drug Allergy 08-09-19 09 Unknown, Itching, Rash [facility] (6 sources) levoFLOXacin; 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: [levofloxacin] Drug Allergy 03-19-20 17 Unknown, Itching, Rash [facility] (20 sources) Morphine; 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: [morphine] Drug Allergy 08-09-19 09 [facility] (5 sources) oxyCODONE Drug Allergy 12-03-19 16 [facility] (3 sources) Penicillins; 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: [PENICILLINS] Drug Allergy 12-03-19 16 [facility] (1 source) Baclofen Drug Allergy [facility] (1 source) Codeine Drug Allergy [facility] (14 sources) levoFLOXacin; 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: [Levaquin] Drug Allergy Unknown [facility] (1 source) Morphine Drug Allergy 05-04-18 94 [facility] (1 source) oxyCODONE Drug Allergy 05-04-19 05 [facility] (1 source) Penicillins Drug allergy (disorder) 05-04-18 93 [facility] (3 sources) traMADol; 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: [Ultram] Drug Allergy [facility] (11 sources) Codeine Drug Allergy Unknown [employer] Other (14 sources) Penicillin; 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: [penicillin] Drug Allergy Unknown [facility] (17 sources) traMADol; 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: [tramadol] Drug Allergy 07-13-19 20 Itching [facility] (14 sources) zolpidem; 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: [zolpidem] Drug Allergy 07-04-19 23 Unknown [facility] (2 sources) Penicillins Drug Allergy 12-03-19 16 Hives, Rash [facility] (1 source) Non-steroidal anti-inflammatory agent Drug allergy 02-02-20 13 Unknown [employer] [facility] [employer] Other (3 sources) sulfADIAZINE; 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: [SULFADIAZINE] Drug Allergy 07-04-19 23 Comment:Sulfa [employer] Other (1 source) Ultram *ANALGESICS - OPIOID* Propensity to adverse reactions Unknown [employer] Other (1 source) Vioxx *ANALGESICS - ANTI-INFLAMMATORY * Propensity to adverse reactions Unknown [employer] Other (1 source) Penicillin G Benzathine & Proc Drug allergy Unknown [employer] Other (1 source) Morphine Sulfate (Concentrate) *ANALGESICS - OPIOI Propensity to adverse reactions Unknown [employer] Other (1 source) Allergies Reconciled Propensity to adverse reactions Unknown [employer] Other (1 source) patient allergy list reviewed by nurse or physicia Propensity to adverse reactions 02-02-20 13 Comment:Done [employer] Other (1 source) Vicodin *ANALGESICS - OPIOID* Propensity to adverse reactions Unknown [employer] Other (1 source) calcitonin Drug allergy Unknown [employer] Other (2 sources) Penicillins Propensity to adverse reactions to drug 05-14-19 [facility] Acetaminophen / HYDROcodone; 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: [Vicodin] Drug Allergy [facility] (1 source) Adhesive Tape; 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: [Tape] Propensity to adverse reactions (disorder) [facility] (2 sources) Adhesive agent; 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: [ADHESIVE] Propensity to adverse reactions to drug 07-04-19 [facility] (2 sources) penicillin G benzathine / penicillin G procaine; 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: [PENICILLIN G BENZATHIN,PROCAIN ] Drug Allergy 07-04-19 [facility] (2 sources) rofecoxib; 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: [ROFECOXIB] Drug Allergy 07-04-19 [facility] (1 source) Morphine; 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: [Morphine Sulfate] Drug Allergy [facility] (1 source) zolpidem; 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: [Ambien] Drug Allergy [facility] Medications Current Medications Medication Drug Class(es) [...] Coronary arteriosclerosis; 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] Onset: 07-29-2021 [...] 05-06-2023 Chronic Other aftercare (1 source) Other long term acute care registered nurse (current) drug therapy; 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: [OTH SERVICE DESK ANALYST CURRENT DRUG THERAPY] Onset: 06-11-2022 Episodic Other aftercare (1 source) Long-term current use of anticoagulant; 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: [long term acute care registered nurse (current) use of anticoagulants] Onset: 02-11-2023 Episodic [...] Reference Range Facility Pre-Certification Formon Pre-Certification Form [id number] #1.00TIFF Normal [facility] POCT EKGOrdered By: Samantha Gurrola on 06-02-2023 [facility] MRI HIP RIGHT WITHOUT CONTRA [...] tendons as discussed in detail above. 3. Cmqcb-xd-myxvhsdl amount of fluid along the lateral aspect of the greater trochanter in the distribution of the greater trochanteric bursa may relate to postoperative seroma or bursitis. 4. No acute bony finding. Normal marrow signal. NOTE: Other chronic/incidental findings are discussed above. Normal [facility] Screenson 05-28-2023 Screens [id number] #1.00TIFF Normal [facility] Patient Educationon 05-27-19 Patient Education Obstetrics and [...] provider. Document Revised: 08/29/2021 Document Reviewed: 08/29/2021 [employer] Patient Education ? 2022 [employer]. [facility] Urology Office/Clinic Noteon 05-27-2023 Urology Office/Clinic Note [...] a hematuria workup including a scope, at [facility]. Occasional visible blood w/UTI. [...] discussed. Pt was referred for PFPT at [facility] at prior OV, has not started this, [...] the office notified. -Kegels. 4. Anticoagulated (Z79.01: long term acute care registered nurse (current) use of anticoagulants) Pt does take Eliquis therapy. Elevated risk of periop complications 5. History of (more content not included)... Normal [facility] Comment on above: Result Comment: Elec tronically Signed By: Alfreda Miller MD\.br\Date and Time Signed: 05/27/23 19:56 EST\.br\Electronically Co-Signed By: Karlee Ramos\.br\Date and Time Co-Signed: 05/27/23 10:23 EST COBALT AND CHROMIUMon 2023 CHROMIUM,WB 1.1 Normal [facility] Comment on above: Result Comment: Refe rence range: <3.0 Unit: ng/mL PERFORMED BY [facility] COBALT,WB <1.0 [facility] Comment on above: Result Comment: Refe rence range: <3.0 Unit: ng/mL (NOTE) Chromium and cobalt analysis performed by inductively coupled plasma/mass spectrometry (ICP/MS). Reference range is for patients with qbbbr-do-jpjcl (MoM) orthopedic implants. The [place] Association of Hip and Knee Surgeons, the [place] Academy of Orthopaedic Surgeons, and The Hip Society, have published a consensus statement, Risk Stratification Algorithm for Management of Patients with Kucpi-wf-Cvspv Hip Arthroplasty. The algorithm is intended as an aid to orthopedic surgeons in the assessment and management of patients with Rwren-qw-Srslb bearings. The systematic risk stratification includes recommendations [...] developed and its performance characteristics determined by [employer]. It has not been cleared or approved by the Food and Drug Administration. COBALT AND CHROMIUM,WBon Chromium (Bld) [Mass/Vol] 1.1 [facility] Comment on above: Reference range: <3. 0 Unit: ng/mL PERFORMED BY [facility] Fonda (Bld) [Mass/Vol] <1.0 [facility] Comment on above: Reference range: <3. 0 Unit: ng/mL (NOTE) Chromium and cobalt analysis performed by inductively coupled plasma/mass spectrometry (ICP/MS). Reference range is for patients with uajbt-ba-pyxil (MoM) orthopedic implants. The [place] [employer] of Hip and Knee Surgeons, the [place] Academy of Orthopaedic Surgeons, and The Hip Society, have published a consensus statement, Risk Stratification Algorithm for Management of Patients with Bormc-fe-Salcw Hip Arthroplasty. The algorithm is intended as an aid to orthopedic surgeons in the assessment and management of patients with Duqub-ep-Fdckm bearings. The systematic risk stratification includes recommendations [...] developed and its performance characteristics determined by [employer]. It has not been cleared or approved by the Food and Drug Administration. [facility] C REACTIVE PROTEINon 024 CRP [Mass/Vol] 48.4 mg/L High 0-10 [facility] Comment on above: Performed By: #### E SR, CREACT #### Testing performed at [address] [place] [address] CRP [Mass/Vol] 48.4 mg/L High 0 - 10 MG/L [facility] Interpretation and review of laboratory results Abnormal [facility] ESRon 05-14-2023 ESR (Bld) [Velocity] 31 mm/h High 0-30 [facility] Comment on above: Performed By: #### E SR, CREACT #### Testing performed at [facility] [address] [place] [address] SEDIMENTATION RATE, AUTOMATE Don 05-14-2023 ESR (Bld) [Velocity] 31 mm/h [facility] Interpretation and review of laboratory results Abnormal [facility] Ambulatory Visit Summaryon 1 Ambulatory Visit Summary BETTIE BURNS :1945 Visit Date:02/11/2023 Ambulatory Visit Instructions Your Diagnosis Frequent UTI Microscopic hematuria Mixed incontinence Anticoagulated History of breast cancer Former smoker Tests Performed Urnls Dip Stick Auto w/o Microscopy POC [id number] Your Care Team Attending Physician - Paul [...] VILLEGAS, Alfreda Palacios Where: [facility] Normal [facility] Lab Reportson 02-11-2023 Lab Reports [id number] 1#1.00TIFF [facility] Patient Educationon 02-12-20 23 Patient Education Obstetrics [...] Reviewed: 08/29/2021 Elsevier Patient Education ? 2022 [employer] Inc[employer] [facility] Physician Referralon 023 Physician Referral [id number] #1.00TIFF [facility] Urinalysis - DIPSTICKon 10-03 Appearance (U) cloudy [employer] Other Bilirubin Ql (U) imedo ast [employer] Other Color (U) yellow [employer] Other Glucose Ql (U) Negative [employer] Other Hemoglobin Ql (U) [employer] oast [employer] Other Ketones Ql (U) Negative [employer] Other Leukocyte esterase Test strip Ql (U) moderate [employer] Other Nitrite Ql (U) Positive [employer] Other pH (U) 5 [pH] [employer] Other Protein Ql (U) Negative [employer] Other Specific gravity (U) [Rel density] 1.010 [employer] Other Urobilinogen (U) [Mass/Vol] off chart [employer] Other Urinalysis - DIPSTICK [employer] Other Urine Cultureon 10-27-2022 Bacteria identified Cx Nom (U) ORGANISM: Escherichia coli (O:ESCCOL) Duncan Count >100,000 Aerobic AUBREY Charge (NMIC56) ----- [...] RESISTANT TO ALL B-LACTAM DRUGS. PERFORMED BY: [place] [address] PATHOLOGIST MACHINE TRACER JOSE GUADALUPE FERGUSON M.D. [facility] Comment on above: Performed By: #### C UU #### [address] [place] 09-11-2022 [place] Telephone (ELIGIOA) BETTIE BURNS ([id number]) 1945 F Date Time Provider Department 09/11/22 MATT ADAMS During your visit today, we recorded the following information about you: Matt Adams RN 09/11/2022 9:54 AM Signed Pt called to request yearly Mammogram order I have pended order as previously completed Pt requests to fax to Nori Lema [phone] [facility]/: please review and sign if [...] mammogram for malignant neoplasm of breast [Z12.31] Order(s):[facility] SCREENING W YAW [[id number]] Order #: [id number] FUTURE Prescriptions as of 09/11/2022 - lisinopril [...] Status:Closed by MATT ADAMS on 09/11/22 Normal [facility] Urinalysis - DIPSTICKon 06-05 Appearance (U) cloudy [employer] Other Bilirubin Ql (U) Negative [employer] Other Color (U) pale yellow [employer] Other Glucose Ql (U) Negative [employer] Other Hemoglobin Ql (U) non hem-trace [place] [employer] Other Ketones Ql (U) trace [employer] Other Leukocyte esterase Test strip Ql (U) moderate [employer] Other Nitrite Ql (U) Negative [employer] Other pH (U) 5 [pH] [employer] Other Protein Ql (U) trace [employer] Other Specific gravity (U) [Rel density] 1.005 [employer] Other Urobilinogen (U) [Mass/Vol] normal [employer] Other Urinalysis - DIPSTICK [employer] Other CULTURE URINEon 06-11-2022 CULTURE URINE Isolate [...] F Trimethoprim/Sulfame thoxazole <=20 S F Normal [facility] Comment on above: Performed By: #### U RCX #### [facility] [address] [place] [address] Dr. Florencio Narayanan CARDIAC AMBER ADMITon 023 CK [Catalytic activity/Vol] 44 U/L Normal 26-192 [facility] Comment on above: Performed By: #### C LILIAN LOZANO CMADM #### [facility] [address] [address] [address] Florencio Narayanan CK.MB [Mass/Vol] ng/mL Normal <=3.60 [facility] Comment on above: Performed By: #### C LILIAN LOZANO CMADM #### [facility] [address] [place] [address] Dr. Florencio Narayanan HSTROP 14.6 pg/mL Normal 4.0-51.3 [facility] Comment on above: Result Comment: CUT- OFF POINTS HAVE BEEN ESTABLISHED BASED ON THE FOURTH UNIVERSAL DEFINITIONS OF MYOCARDIAL INFARCTION. THE UPPER REFERENCE LIMIT (URL) OF TROPONIN, DEFINED THE 99TH PERCENTILE OF cTnI DISTRIBUTION IN A REFERENCE POPULATION, HAS BEEN CONFIRMED THE DECISION THRESHOLD FOR SD DIAGNOSIS. Performed By: #### C LILIAN LOZANO CMADM #### [facility] [address] [place] [address] Dr. Florencio Narayanan UMER 109 ng/mL Critically high 9-82 [facility] Comment on above: Performed By: #### C LILIAN LOZANO CMADM #### [facility] [address] [place] [address] Dr. Florencio Narayanan CBC AUTO DIFFon 06-09-2022 BASO # 0.1 103/ul Normal 0.0-0.1 [facility] Comment on above: Performed By: #### C BC #### [facility] [address] [place] [address] Dr. Florencio Narayanan Basophils/100 WBC (Bld) 0.4 % Normal 0.2-2.0 [facility] Comment on above: Performed By: #### C BC #### [facility] [address] [place] [address] Dr. Florencio Narayanan EO # 0.0 103/ul Normal 0.0-0.7 [facility] Comment on above: Performed By: #### C BC #### [facility] [address] [place] [address] Dr. Florencio Narayanan Eosinophils/100 WBC (Bld) 0.2 % Critically low 0.9-7.0 [facility] Comment on above: Performed By: #### C BC #### [facility] [address] [place] [address] Dr. Florencio Narayanan Erythrocyte distribution width (RBC) [Ratio] 12.3 % Normal 11.0-15.0 [facility] Comment on above: Performed By: #### C BC #### [facility] [address] [place] [address] Dr. Florencio Narayanan Hematocrit (Bld) [Volume fraction] 38.4 % Normal 36.0-48.0 [facility] Comment on above: Performed By: #### C BC #### [facility] [address] [place] [address] Dr. Florencio Narayanan Hemoglobin (Bld) [Mass/Vol] 12.7 g/dL Normal 12.0-16.0 [facility] Comment on above: Performed By: #### C BC #### [facility] [address] [place] [address] Dr. Florencio Narayanan IG # 0.06 10e3/ul Critically high 0.00-0.03 [facility] Comment on above: Performed By: #### C BC #### [facility] [address] [place] [address] Dr. Florencio Narayanan IG % 0.5 % Normal 0.0-0.5 [facility] Comment on above: Performed By: #### C BC #### [facility] [address] [place] [address] Dr. Florencio Narayanan LYMPH # 1.0 103/ul Critically low 1.2-3.8 [facility] Comment on above: Performed By: #### C BC #### [facility] [address] [place] [address] [address] Florencio Narayanan Lymphocytes/100 WBC (Bld) 8.4 % Critically low 20.5-60.0 [facility] Comment on above: Performed By: #### C BC #### [facility] [address] [place] [address] Dr. Florencio Narayanan MANUAL DIFF REQ NO Normal [facility] Comment on above: Performed By: #### C BC #### [facility] [address] [place] [address] Dr. Florencio Narayanan MCH (RBC) [Entitic mass] 32.4 pg Normal 26.7-34.0 [facility] Comment on above: Performed By: #### C BC #### [facility] [address] [place] [address] Dr. Florencio Narayanan MCHC (RBC) [Mass/Vol] 33.1 g/dL Normal 29.9-35.2 [facility] Comment on above: Performed By: #### C BC #### [facility] [address] [place] [address] Dr. Florencio Narayanan MCV (RBC) [Entitic vol] 98.0 fL Normal 81.0-99.0 [facility] Comment on above: Performed By: #### C BC #### [facility] [address] [place] [address] Dr. Florencio Narayanan MONO # 1.6 103/ul Critically high 0.3-0.8 [facility] Comment on above: Performed By: #### C BC #### [facility] [address] [place] [address] Dr. Florencio Narayanan Monocytes/100 WBC (Bld) 13.1 % Critically high 1.7-12.0 [facility] Comment on above: Performed By: #### C BC #### [facility] [address] [place] [address] Dr. Florencio Narayanan NEUT # 9.5 103/ul Critically high 1.4-6.5 [facility] Comment on above: Performed By: #### C BC #### [facility] [address] [place] [address] [address] Florencio Narayanan Neutrophils/100 WBC (Bld) 77.4 % Critically high 43.0-75.0 [facility] Comment on above: Performed By: #### C BC #### [facility] [address] [place] [address] [address] Florencio Narayanan Platelet mean volume (Bld) [Entitic vol] 9.4 fL Critically low 9.5-13.5 [facility] Comment on above: Performed By: #### C BC #### [facility] [address] [place], [place] [address] Dr. Florencio Narayanan PLT 140 103/ul Critically low 150-450 [facility] Comment on above: Performed By: #### C BC #### [facility] [address] [address] [address] Florencio Narayanan RBC 3.92 106/ul Critically low 4.20-5.40 [facility] Comment on above: Performed By: #### C BC #### [facility] [id number] Florencio Narayanan WBC 12.2 103/ul Critically high 4.0-11.0 [facility] Comment on above: Performed By: #### C BC #### [facility] [address] [address] [address] STROKE HEAD WOon [...] by: LUANA VILLAFANA Date: 2022-06-09 12:24 Normal [facility] Covid-19 PCR (CVDTBH)on SARS-CoV-2 (COVID-19) RNA CHRISTOPHER+probe Ql (Unsp spec) Not detected Normal NOT DETECTED [facility] Comment on above: Result Comment: When [...] for this test is supported by the Launch Engineer of Health and Human Service's declaration that [...] Performed By: #### C VDTB #### [facility] [address] [place] [address] Dr. Florencio Narayanan ER URINE PROFILEon 3 Bilirubin Ql (U) Negative Normal NEGATIVE [facility] Comment on above: Performed By: #### ADIEL LE #### [facility] [address] [place] [address] Dr. Florencio Narayanan Clarity (U) CLEAR Normal CLEAR [facility] Comment on above: Performed By: #### ADIEL LE #### [facility] [address] [place] [address] Dr. Florencio Narayanan Color (U) LT. YELLOW Normal YELLOW [facility] Comment on above: Performed By: #### ADIEL LE #### [facility] [address] [place] [address] Dr. Florencio Narayanan ERUAHD A micrscopic examination will be performed if indicated. Normal [facility] Comment on above: Performed By: #### ADIEL LE #### [facility] [address] [place] [address] Dr. Florencio Narayanan Glucose Ql (U) Negative Normal NEGATIVE [facility] Comment on above: Performed By: #### Malini PIZANO UMICRO #### [facility] [address] [place] [address] Dr. Florencio Narayanan Hemoglobin Ql (U) LARGE Abnormal NEGATIVE [facility] Comment on above: Performed By: #### Malini PIZANO UMICRO #### [facility] [address] [place] [address] Dr. Florencio Narayanan Ketones Ql (U) TRACE Abnormal NEGATIVE [facility] Comment on above: Performed By: #### Malini PIZANO UMICRO #### [facility] [address] [place] [address] Dr. Florencio Narayanan LEUKOCYTES LARGE Abnormal NEGATIVE [facility] Comment on above: Performed By: #### Malini PIZANO UMICRO #### [facility] [address] [place] [address] Dr. Florencio Narayanan Nitrite Ql (U) Positive Abnormal NEGATIVE [facility] Comment on above: Performed By: #### Malini PIZANO UMICRO #### [facility] [address] [place] [address] Dr. Florencio Narayanan pH (U) 5.5 [pH] Normal 5-9 [facility] Comment on above: Performed By: #### Malini PIZANO UMICRO #### [facility] [address] [place] [address] Dr. Florencio Narayanan SPEC GRAVITY 1.010 Normal 1.005-<=1.025 [facility] Comment on above: Performed By: #### Malini PIZANO UMICRO #### [facility] [address] [place] [address] Dr. Florencio Narayanan UA PROTEIN TRACE Normal NEGATIVE/ TRACE [facility] Comment on above: Performed By: #### Malini PIZANO UMICRO #### [facility] [address] [place] [address] Dr. Florencio Narayanan UR MICRO IND INDICATED Normal [facility] Comment on above: Performed By: #### ADIEL LE #### [facility] [address] [place] [address] Dr. Florencio Narayanan Urobilinogen Qn (U) 0.2 {Zenia'U}/dL Normal 0.2 - 1. 0 [facility] Comment on above: Performed By: #### ADIEL LE #### [facility] [address] [place] [address] Dr. Florencio Narayanan LIPASEon 06-09-2022 Lipase [Catalytic activity/Vol] 68.0 U/L Critically low 73.0-393.0 [facility] Comment on above: Performed By: #### C MP LIPA, CMADM #### [facility] [address] [place] [address] Dr. Florencio Narayanan PROF 14(COMP METB)on 023 Albumin [Mass/Vol] 2.5 g/dL Critically low 3.4-5.0 [facility] Comment on above: Performed By: #### C MP, LIPA, CMADM #### [facility] [address] [place] [address] Dr. Florencio Narayanan Albumin/Globulin [Mass ratio] 0.6 {ratio} Normal [facility] Comment on above: Performed By: #### C MP, LIPA, CMADM #### [facility] [address] [place] [address] Dr. Florencio Narayanan ALP [Catalytic activity/Vol] 150 U/L Critically high 46-116 [facility] Comment on above: Performed By: #### C MP, LIPA, CMADM #### [facility] [address] [place] [address] Dr. Florencio Narayanan ALT [Catalytic activity/Vol] 27 U/L Normal 14-59 [facility] Comment on above: Performed By: #### C MP, LIPA, CMADM #### [facility] [address] [place] [address] Dr. Florencio Narayanan Anion gap [Moles/Vol] 12.8 mmol/L Normal [facility] Comment on above: Performed By: #### C MP, LIPA, CMADM #### [facility] [address] [address] [address] Florencio Narayanan AST [Catalytic activity/Vol] 31 U/L Normal 15-37 [facility] Comment on above: Performed By: #### C MP, LIPA, CMADM #### [facility] [address] [address] [address] Florencio Narayanan Bilirubin [Mass/Vol] 1.1 mg/dL Critically high 0.2-1.0 [facility] Comment on above: Performed By: #### C MP, LIPA, CMADM #### [facility] [address] [address] [address] Florencio Narayanan Calcium [Mass/Vol] 9.1 mg/dL Normal 8.5-10.1 [facility] Comment on above: Performed By: #### C MP, LIPA, CMADM #### [facility] [address] [address] [address] Florencio Narayanan Chloride [Moles/Vol] 95 mmol/L Critically low 98-107 [facility] Comment on above: Performed By: #### C MP, LIPA, CMADM #### [facility] [address] [address] [address] Florencio Narayanan CO2 [Moles/Vol] 29.4 mmol/L Normal 21.0-32.0 [facility] Comment on above: Performed By: #### C MP, LIPA, CMADM #### [facility] [address] [address] [address] Florencio Narayanan Creatinine [Mass/Vol] 1.34 mg/dL Critically high 0.55-1.02 [facility] Comment on above: Performed By: #### C MP, LIPA, CMADM #### [facility] [address] [place] [address] Dr. Florencio Narayanan EGFR-AF THAI 47 mL/min/1.73m2 Critically low >=60 [facility] Comment on above: Performed By: #### C MP, LIPA, CMADM #### [facility] [address] [place] [address] Dr. Florencio Narayanan EGFR-NON AF THAI 39 mL/min/1.73m2 Critically low >=60 [facility] Comment on above: Performed By: #### C MAURICIO LOZANOA, CMADM #### [facility] [address] [address] [address] Florencio Narayanan Globulin (S) [Mass/Vol] 4.3 g/dL Normal [facility] Comment on above: Performed By: #### C BLAKE LIPA, CMADM #### [facility] [address] [address] [address] Florencio Narayanan Glucose [Mass/Vol] 118 mg/dL Critically high 74-106 T [facility] Comment on above: Performed By: #### C BLAKE LIPA, CMADM #### [facility] [address] [place] [address] Dr. Florencio Narayanan Potassium [Moles/Vol] 3.2 mmol/L Critically low 3.5-5.1 [facility] Comment on above: Performed By: #### C BLAKE LIPA, CMADM #### [facility] [address] [address] [address] Florencio Narayanan Protein [Mass/Vol] 6.8 g/dL Normal 6.4-8.2 [facility] Comment on above: Performed By: #### C BLAKE LIPA, CMADM #### [facility] [address] [address] [address] Florencio Narayanan Sodium [Moles/Vol] 134 mmol/L Critically low 136-145 Th [facility] Comment on above: Performed By: #### C MP, LIPA, CMADM #### [facility] [address] [address] [address] Florencio Narayanan Urea nitrogen [Mass/Vol] 29.0 mg/dL Critically high 7.0-18.0 [facility] Comment on above: Performed By: #### C MP, LIPA, CMADM #### [facility] [address] [address] [address] Florencio Narayanan Urea nitrogen/Creatinine [Mass ratio] 21.6 mg/mg Normal [facility] Comment on above: Performed By: #### C MP, LIPA, CMADM #### [facility] [address] [place] [address] Dr. Florencio Narayanan URINE MICROSCOPIC ONLYon BACTERIA SMALL Abnormal NONE SEEN [facility] Comment on above: Performed By: #### E RUR, UMICRO #### [facility] [address] [place] [address] Dr. Florencio Narayanan Bacteria identified Cx Nom (U) INDICATED Normal [facility] Comment on above: Performed By: #### E RUR, UMICRO #### [facility] [address] [place] [address] Dr. Florencio Narayanan CAST NONE SEEN Normal NONE SEEN [facility] Comment on above: Performed By: #### E RUR, UMICRO #### [facility] [address] [place] [address] Dr. Florencio Narayanan Crystals LM Nom (Urine sed) NONE SEEN Normal NONE SEEN [facility] Comment on above: Performed By: #### E RUR, UMICRO #### [facility] [address] [place] [address] Dr. Florencio Narayanan Epithelial cells LM Ql (Urine sed) FEW Abnormal NONE SEEN /RARE [facility] Comment on above: Performed By: #### E RUR, UMICRO #### [facility] [address] [place] [address] Dr. Florencio Narayanan MUCOUS NONE SEEN Normal NONE SEEN [facility] Comment on above: Performed By: #### E RUEmelina, UMICRO #### [facility] [address] [place] [address] Dr. Florencio Narayanan RBC 2-5 Abnormal 0-2 [facility] Comment on above: Performed By: #### E HARINDER, UMICRO #### [facility] [address] [place] [address] Dr. Florencio Narayanan WBC 10-20 Abnormal NONE SEEN [facility] Comment on above: Performed By: #### E RUR, UMICRO #### [facility] [address] [place] [address] Dr. Florencio Narayanan XR CHEST 2 Von [...] ATKINS Date: 2022-06-09 12:24 Normal [facility] CULTURE URINEon 04-16-2022 CULTURE URINE Isolate [...] thoxazole >=320 R F Normal [facility] Comment on above: Performed By: #### C #### [facility] [address] [place] [address] Dr. [address] [facility] BETTIE BURNS ([id number]) 1945 F Date Time Provider Department 10/03/21 [...] Z17.0] Order(s):CBC + DIFF [SQCBCDIF] Order #: [id number] FUTURE COMP METABOLIC PANEL [SQCMP] Order #: [id number] FUTURE CA 27.29 BLOOD [[id number]] Order #: [id number] FUTURE Prescriptions as of 10/03/2021 - lisinopril [...] Encounter Status:Closed by ANDREW CHOI on 10/03/21 [facility] (HEMASA) BETTIE BURNS ([id number]) 1945 F Date Time Provider Department 09/26/21 ELTON DOMINGUEZ During your visit today, we recorded the following information about you: Elton Dominguez RN 09/26/2021 2:36 PM Signed Pt scheduled for diagnostic mamm tomorrow @ [facility] Hospital calls to ask if this could be changed to a screening mammogram since the pt is greater than 2 years from diagnosis? RICARDO Jean-Baptiste MD 09/26/2021 5:14 PM Addendum Okay to change to screening mammogram. Order signed. Thanks, ASIYA Dominguez RN 09/27/2021 8:12 AM Signed Order faxed to [facility] @ [phone]. Elton Dominguez RN Allergies As of Date: [...] mammogram for malignant neoplasm of breast [Z12.31] Order(s):[facility] SCREENING W YAW [[id number]] Order #: [id number] FUTURE Prescriptions as of 09/27/2021 - lisinopril [...] Status:Closed by ANDREW CHOI on 09/26/21 Normal [facility] MRI Hip w/o Righton 09-12-19 MRI [...] by Ramon Ambrocio on 09/11/2021 1545 Normal [facility] Client Integration Manager Consult Reporton 03-14-2020 Consult Report [facility] CONSULTATION BETTIE BURNS [address]ET [id number] OBSV ANABEL WATKINS MD [id number] REFERRING PHYSICIAN: CONSULTING PHYSICIAN: Renetta Almanzar MD DATE OF CONSULTATION: 03/11/2020 REASON: A near syncopal event in a 74-year-old female, with a history of atrial fibrillation, previous cardiac ablation, who was the time of evaluation noted to have a positive test for COVID. HISTORY OF PRESENT ILLNESS: Mrs. Burns is a very pleasant, alert and oriented -jsis-gaj female who was brought into the emergency [...] including quarantine. Many thanks. MD KALYAN GONZALEZ/Isidro /[id number] Normal [facility] BASICMETAon 03-11-2020 GFR AA >60 Normal [facility] Comment on above: Result Comment: Afri can [...] for drug dosing. Performed By: #### 1 01963, 615636, 926442 ####[facility] [address]25[address] [place] [address] Medical Director: Fahad Cast MD GFR/1.73 sq M predicted among non-blacks MDRD (S/P/Bld) [Vol rate/Area] 56 mL/min/1.73m? Normal [facility] Comment on above: Result Comment: Non GFR [...] for drug dosing. Performed By: #### 1 78365, 194017, 993760 ####[facility] [address]rc[address]qkh67089 [place] [address] Medical Director: Fahad Cast MD Osmolality [Osmolality] 291 mOsm/kg Normal 275-295 [facility] Comment on above: Performed By: #### 1 72633, 962407, 470142 ####[facility] [address]qrwa[address]708 [place] [address] Medical Director: Fahad Cast MD Urea nitrogen/Creatinine [Mass ratio] 24.5 mg/mg Normal [facility] Comment on above: Performed By: #### 1 20982, 493607, 147064 ####[facility] [address]psuxko46171 [place] [address] Medical Director: Fahad Cast MD Calcium [Mass/Vol] 9.3 mg/dL Normal 8.5-10.5 [facility] Comment on above: Performed By: #### 1 90948, 628514, 108485 ####[facility] H[address]uoosh37820 [place] [address] Medical Director: Fahad Cast MD Chloride [Moles/Vol] 108 mmol/L Normal 100-109 [facility] Comment on above: Performed By: #### 1 22038, 686014, 676620 ####[facility] [address]xpfco07[address] [place] [address] Medical Director: Fahad Cast MD CO2, venous 28.9 mmol/L Normal 21.0-32.0 [facility] Comment on above: Performed By: #### 1 97859, 273996, 618521 ####[facility] [address]om13[address] [place] [address] Medical Director: Fahad Cast MD Creatinine [Mass/Vol] 1.0 mg/dL Normal 0.6-1.0 [facility] Comment on above: Performed By: #### 1 93810, 116153, 320638 ####[facility] [address]bro[address] [place] [address] Medical Director: Fahad Cast MD Glucose [Mass/Vol] 98 mg/dL Normal 72-100 [facility] Comment on above: Result Comment: Sharon puncture should occur prior to sulfasalazine administration due to the potential for falsely depressed results. Venipuncture should occur prior to sulfapyridine administration due to the potential falsely elevated results. Baseline assay values before administration of sulfasalazine and sulfapyridine therapy would not be affected. Performed By: #### 1 10321, 197152, 649301 ####[facility] [address]ji[address]264 [place] [address] Medical Director: Fahad Cast MD Potassium [Moles/Vol] 4.2 mmol/L Normal 3.5-5.1 [facility] Comment on above: Performed By: #### 1 53772, 646728, 720791 ####[facility] [address]kgqsjp74375 [place] [address] Medical Director: Fahad Cast MD Sodium [Moles/Vol] 144 mmol/L Normal 135-145 [facility] Comment on above: Performed By: #### 1 74248, 276802, 840255 ####[facility] [address]bwbzw11985 [place] [address] Medical Director: Fahad Cast MD Urea nitrogen [Mass/Vol] 24 mg/dL High 10-20 [facility] Comment on above: Performed By: #### 1 29224, 956397, 630271 ####[facility] Vfgsqyrz01242 [place] [address] Medical Director: Fahad Cast MD CBCNDon 03-11-2020 Erythrocyte distribution width (RBC) [Ratio] 14.4 % Normal 11.5-14.5 [facility] Comment on above: Performed By: #### 1 66802, 462900, 190894 #### [facility] [address] [place] [address] Back Maker: Fahad Cast MD Hematocrit (Bld) [Volume fraction] 33.9 % Low 36.0-46.0 [facility] Comment on above: Performed By: #### 1 92844, 379862, 785028 #### [facility] [address] [place] [address] Back Maker: Fahad Cast MD Hemoglobin (Bld) [Mass/Vol] 11.2 g/dL Low 12.0-16.0 [facility] Comment on above: Performed By: #### 1 10863, 632318, 521724 #### [facility] [address] [place], [place] [address] Back Maker: Fahad Cast MD MCH (RBC) [Entitic mass] 29.5 pg Normal 27.0-34.0 [facility] Comment on above: Performed By: #### 1 20726, 067359, 334621 #### [facility] [address] [place], [place] [address] Back Maker: Fahad Cast MD MCHC (RBC) [Mass/Vol] 33.0 g/dL Normal 32.0-37.0 [facility] Comment on above: Performed By: #### 1 55163, 475815, 637167 #### [facility] [address] [place], [place] [address] Back Maker: Fahad Cast MD MCV (RBC) [Entitic vol] 89.5 fL Normal 80.0-100.0 [facility] Comment on above: Performed By: #### 1 29133, 902049, 824290 #### [facility] [address] [place], [place] [address] Back Maker: Fahad Cast MD Platelet mean volume (Bld) [Entitic vol] 6.8 fL Low 7.4-10.4 [facility] Comment on above: Performed By: #### 1 94181, 191089, 220876 #### [facility] [address] [place] [address] Back Maker: Fahad Cast MD Platelets (Bld) [#/Vol] 232 x1000 Normal 150-450 [facility] Comment on above: Performed By: #### 1 65958, 053397, 253380 #### [facility] [address] [place] [address] Back Maker: Fahad Cast MD RBC (Bld) [#/Vol] 3.79 x10 Low 4.20-5.40 [facility] Comment on above: Result Comment: Note : RBC morphology is normal unless otherwise stated. Evaluation performed only if differential is requested. Performed By: #### 1 48212, 413842, 039927 #### [facility] [address] [place] [address] Back Maker: Fahad Cast MD WBC (Bld) [#/Vol] 5.8 10*3/uL Normal [facility] Comment on above: Performed By: #### 1 06119, 452601, 819860 #### [facility] [address] [place] [address] Back Maker: Fahad Cast MD WBC (Bld) [#/Vol] 5.8 x10 Normal 4.5-11.0 [facility] Comment on above: Performed By: #### 1 68317, 362647, 971944 #### [facility] [address] [place] [address] Back Maker: Fahad Cast MD D Dimer HSon 03-11-2020 D Dimer HS 821 ng/mL FEU High <=499 [facility] Comment on above: Result Comment: Excl usion of PE and DVT The D Dimer HS assay is reported in ng/ml Fibrinogen Equivalent Units (FEU). Per bookbinder chief?s instructions for use, a value less than 500ng/ml (FEU) may help to exclude DVT and /or PE in outpatients when the assay is used with a clinical pretest probability assessment. D-Dimer used for DIC Screens Assay results should be used with other information, including the clinical context in forming a diagnosis. Performed By: #### C [id number] ####[facility] [address] [place] [address] Medical Director: Fahad Cast MD LDHon 03-11-2020 LDH 198 unit/L Normal 84-246 [facility] Comment on above: Performed By: #### 1 75021, 964588, 836417 #### [facility] [address] [place] [address] Back Maker: Fahad Cast MD Progress Note-Physicianon Progress Note-Physician [...] DVT ppx: On Eliquis Normal [facility] Utilization Review Noteon Utilization Review Note ID Consult pending DISCHARGE WRITTEN AND PLANNED. Normal [facility] AUTO DIFFon 03-10-2020 Basophils (Bld) [#/Vol] 0.05 x1000 Normal 0.00-0.20 [facility] Comment on above: Performed By: #### 1 23967, 231865, 5711487 ####[facility] [address] [place] [address] Medical Director: Fahad Cast MD Basos % 0.6 % Normal [facility] Comment on above: Performed By: #### 1 11589, 724101, 0211440 ####[facility] [address] [phone] Medical Director: Fahad Cast MD Eos Count 0.15 x1000 Normal 0.00-0.50 [facility] Comment on above: Performed By: #### 1 58622, 336580, 1975928 ####[facility] [address] [address] Medical Director: Fahad Cast MD Eosinophils/100 WBC (Bld) 1.8 % Normal [facility] Comment on above: Performed By: #### 1 46015, 028841, 7754558 ####[facility] [address] [place] [address] Medical Director: Fahad Cast MD Lymphocytes (Bld) [#/Vol] 1.05 x1000 Low 1.20-4.80 [facility] Comment on above: Performed By: #### 1 08240, 732521, 8265307 ####[facility] [address] [place] [address] Medical Director: Fahad Cast MD Lymphocytes/100 WBC (Bld) 12.7 % Normal [facility] Comment on above: Performed By: #### 1 62045, 372471, 4012753 ####[facility] [address] [place] [address] Medical Director: Fahad Cast MD Anson Count 0.70 x1000 Normal 0.10-1.00 [facility] Comment on above: Performed By: #### 1 49660, 373527, 3872388 ####[facility] Ccatsbmx70125 [place] [address] Medical Director: Fahad Cast MD Monocytes/100 WBC (Bld) 8.4 % Normal [facility] Comment on above: Performed By: #### 1 85225, 876998, 5976470 ####[facility] [address] [place] [address] Medical Director: Fahad Cast MD Neutrophils (Bld) [#/Vol] 6.32 x1000 Normal 1.40-8.80 [facility] Comment on above: Performed By: #### 1 12296, 908758, 3368086 ####[facility] [address]imy58246 [place] [address] Medical Director: Fahad Cast MD Neutrophils/100 WBC (Bld) 76.4 % Normal [facility] Comment on above: Performed By: #### 1 88092, 103821, 3570837 ####[facility] [address] [place] [address] Medical Director: Fahad Cast MD COMPMETAon 03-10-2020 Albumin [Mass/Vol] 3.4 g/dL Normal 3.4-5.0 [facility] Comment on above: Performed By: #### 1 , 771739, 3214841 ####[facility] [address] [place] [address] Medical Director: Fahad Cast MD Albumin/Globulin [Mass ratio] 0.8 {ratio} Normal [facility] Comment on above: Performed By: #### 1 , [id number], 4197421 ####[facility] [address] [place] [address] Medical Director: Fahad Cast MD Alk Phos 71 unit/L Normal 45-117 [facility] Comment on above: Performed By: #### 1 , 11600705, 3308708 ####[facility] [address] [place] [address] Medical Director: Fahad Cast MD Bilirubin [Mass/Vol] 0.37 mg/dL Normal 0.20-1.00 [facility] Comment on above: Result Comment: Use of this assay is not recommended for patients undergoing treatment with eltrombopag due to the potential for falsely elevated results. Performed By: #### 1 , [id number], 3472372 ####[facility] [address]osb14504 [place] [address] Medical Director: Fahad Cast MD Calcium [Mass/Vol] 9.4 mg/dL Normal 8.5-10.5 [facility] Comment on above: Performed By: #### 1 , 763011, 1930154 ####[facility] [address]tshnr60667 [place] [address] Medical Director: Fahad Cast MD Chloride [Moles/Vol] 108 mmol/L Normal 100-109 [facility] Comment on above: Performed By: #### 1 81010, 751375, 6390554 ####[facility] [address]whcrrk[address] [place] [address] Medical Director: Fahad Cast MD CO2, venous 28.2 mmol/L Normal 21.0-32.0 [facility] Comment on above: Performed By: #### 1 11022, 113271, 4621093 ####[facility] [address] 2393630 Medical Director: Fahad Cast MD Creatinine [Mass/Vol] 1.2 mg/dL High 0.6-1.0 [facility] Comment on above: Performed By: #### 1 91905, 678200, 2062314 ####[facility] [address] 2393630 Medical Director: Fahad Cast MD GFR AA 53 [facility] Comment on above: Result Comment: Afri [...] for drug dosing. Performed By: #### 1 57573, 497202, 3945896 ####[facility] [address] [place] 2393630 Medical Director: Fahad Cast MD GFR/1.73 sq M predicted among non-blacks MDRD (S/P/Bld) [Vol rate/Area] 44 mL/min/1.73m? Normal [facility] Comment on above: Result Comment: Non GFR [...] for drug dosing. Performed By: #### 1 28358, 667284, 1686290 ####[facility] [address] [place], [place] [id number]) [phone] Director: Fahad Cast MD Globulin (S) [Mass/Vol] 4.0 g/dL Normal [facility] Comment on above: Performed By: #### 1 43346, 938968, 0132297 ####[facility] [address]cske67[address] [place] [address] Medical Director: Fahad Csat MD Glucose [Mass/Vol] 143 mg/dL High 72-100 [facility] Comment on above: Result Comment: Sharon puncture should occur prior to sulfasalazine administration due to the potential for falsely depressed results. Venipuncture should occur prior to sulfapyridine administration due to the potential falsely elevated results. Baseline assay values before administration of sulfasalazine and sulfapyridine therapy would not be affected. Performed By: #### 1 83393, 247817, 9709093 ####[facility] [address]cf[address] [place], [place] [id number]) [phone] Director: Fahad Cast MD GOT 18 unit/L Normal 15-37 [facility] Comment on above: Result Comment: Sharon puncture should occur prior to sulfasalazine and/or sulfapyridine administration due to the potential for falsely depressed results. Baseline assay values before administration of sulfasalazine and sulfapyridine therapy would not be affected. Performed By: #### 1 50243, 677393, 9149631 ####[facility] [address] [place], [place] [id number]) [phone] Director: Fahad Cast MD GPT 19 unit/L Normal 13-56 [facility] Comment on above: Result Comment: Sharon puncture should occur prior to sulfasalazine and/or sulfapyridine administration due to the potential for falsely depressed results. Baseline assay values before administration of sulfasalazine and sulfapyridine therapy would not be affected. Performed By: #### 1 07906, 827713, 6377304 ####[facility] [address]qsxpkn37615 [place] [address] Medical Director: Fahad Cast MD Osmolality [Osmolality] 293 mOsm/kg Normal 275-295 [facility] Comment on above: Performed By: #### 1 19268, 564993, 6806573 ####[facility] Zbay[address]jj55723 [place] [id number] Medical Director: Fahad Cast MD Potassium [Moles/Vol] 4.0 mmol/L Normal 3.5-5.1 [facility] Comment on above: Performed By: #### 1 [id number], [id number], [id number] ####[facility] [address] [place] [address] Medical Director: Fahad Cast MD Protein [Mass/Vol] 7.4 g/dL Normal 6.0-8.5 [facility] Comment on above: Performed By: #### 1 62289, 326716, [id number] ####[facility] [address] [place] [address] Medical Director: Fahad Cast MD Sodium [Moles/Vol] 142 mmol/L Normal 135-145 [facility] Comment on above: Performed By: #### 1 86417, [id number], [id number] ####[facility] [address] [place] [address] Medical Director: Fahad Cast MD Urea nitrogen [Mass/Vol] 32 mg/dL High 10-20 [facility] Comment on above: Performed By: #### 1 43620, 123641, [id number] ####[facility] [address] [place] [address] Medical Director: Fahad Cast MD Urea nitrogen/Creatinine [Mass ratio] 26.7 mg/mg Normal [facility] Comment on above: Performed By: #### 1 16606, 933789, [id number] ####[facility] [address] [place] [address] Medical Director: Fahad Cast MD COVID-19 by PCR SWEDon 03-10 COVID-19 by PCR SWED Positive Abnormal [facility] Comment on above: Result Comment: CALL DEANNA CHRISTIE 03/10/2020 18:23:22 EST BY SHF; RBR Performed By: #### C [id number] ####[facility] [address] [place] [id number] Medical Director: Fahad Cast MD CRP QUANTon 03-10-2020 C-Reactive Protein, Quantitative 0.8 mg/dL High 0.0-0.3 [facility] Comment on above: Performed By: #### 1 [id number], [id number], [id number] #### [facility] [address] [place] [address] Back Maker: Fahad Cast MD CT ABD PELVIS W [...] by: Oni Liu MD 03/10/2020 3:50 PM AUDIOVISUAL PRODUCTION SPECIALIST Technologist: LIEN BLANCA Dictated By: ONI LIU MD Signed By: ONI LIU MD Signed Out: 03/10/20 16:50:49 Normal [facility] D Dimer HSon 03-10-2020 D Dimer HS 264 ng/mL FEU Normal <=499 [facility] Comment on above: Result Comment: Excl usion of PE and DVT The D Dimer HS assay is reported in ng/ml Fibrinogen Equivalent Units (FEU). Per bookbinder chief?s instructions for use, a value less than 500ng/ml (FEU) may help to exclude DVT and /or PE in outpatients when the assay is used with a clinical pretest probability assessment. D-Dimer used for DIC Screens Assay results should be used with other information, including the clinical context in forming a diagnosis. Performed By: #### 1 [id number], [id number], [id number], [id number] #### [facility] [address] [place] [address] Back Maker: Fahad Cast MD ED Physician Reporton 2019 [...] Line Saline Flush: 3 mL, IV Push, [id number] Documented Medications Documented Eliquis 5 mg oral [...] Interp, Sinus rhythm with first-degree AV block, VA interval 256, QT/QTc/433, incomplete right bundle branch [...] /100WBC NA Lymph % 12.7 % NA Anson % 8.4 % NA Neutrophil % 76.4 % NA Eosin % 1.8 % NA Basos % 0.6 % NA Lymph Count 1.05 x1000 LOW Anson Count 0.70 x1000 NORMAL Neutrophil Count (ANC) [...] by: Monae Hernandez MD 03/10/2020 1:58 PM AUDIOVISUAL PRODUCTION SPECIALIST Signed By: MONAE HERNANDEZ MD CT [...] by: Oni Liu MD 03/10/2020 3:50 PM AUDIOVISUAL PRODUCTION SPECIALIST Signed By: ONI LIU MD . [...] Course: improving. Impression and Plan Diagnosis Syncope ([id number] R55, Working, Medical) Plan Condition: Stable. Disposition: [...] my words and actions.. Normal [facility] ED Pre-Arrival Formon 2019 ED Pre-Arrival Form Pre-Arrival Summary Name: STR, Current Date: 03/10/2020 13:52:19 EST Gender: Date of : Age: Pre-Arrival Type: EMS ETA: 03/10/2020 14:15:00 EST Primary Care Physician: Presenting Problem: Pre-Arrival User: Neil Vázquez RN Referring Source: Location: 1 [facility] Emergency Department [id number] [place] [address]. [place] [address] ____ Notes: Vital Signs: Doctor Call Back: DNR Status: Miscellaneous Issues: Normal [facility] ED Progress Noteon 0 ED Progress Note report not put in by previous rn pt here for syncopal episode after diarrhea episode pt has hx of afib. pt covid+ report called to neil ramsey will come get pt Normal [facility] FERRITINon 03-10-2020 Ferritin [Mass/Vol] 32 ng/mL Normal 8-252 [facility] Comment on above: Performed By: #### 1 [id number], [id number], [id number], [id number] #### [facility] [address] [place] [id number] Back Maker: Fahad Cast MD HEMOon 03-10-2020 DIFF? No Normal [facility] Comment on above: Performed By: #### 1 57968, 267311, [id number] ####[facility] [address] [place] [id number]) [phone] Director: Fahad Cast MD Erythrocyte distribution width (RBC) [Ratio] 14.5 % Normal 11.5-14.5 [facility] Comment on above: Performed By: #### 1 33879, 018430, [id number] ####[facility] [address] [place], [place] [id number]) [phone] Director: Fahad Cast MD Hematocrit (Bld) [Volume fraction] 35.8 % Low 36.0-46.0 [facility] Comment on above: Performed By: #### 1 89460, 685624, [id number] ####[facility] [address] [place] [id number] Medical Director: Fahad Cast MD Hemoglobin (Bld) [Mass/Vol] 11.7 g/dL Low 12.0-16.0 [facility] Comment on above: Performed By: #### 1 23655, 398659, 7407937 ####[facility] [address] [place] [id number]) [phone] Director: Fahad Cast MD MCH (RBC) [Entitic mass] 29.4 pg Normal 27.0-34.0 [facility] Comment on above: Performed By: #### 1 12658, 569891, [id number] ####[facility] [address] [place] [id number]) [phone] Director: Fahad Cast MD MCHC (RBC) [Mass/Vol] 32.7 g/dL Normal 32.0-37.0 [facility] Comment on above: Performed By: #### 1 28812, 484505, [id number] ####[facility] [address] [place] [address] Medical Director: Fahad Cast MD MCV (RBC) [Entitic vol] 89.8 fL Normal 80.0-100.0 [facility] Comment on above: Performed By: #### 1 55068, 372477, [id number] ####[facility] [address] [place] [address] Medical Director: Fahad Cast MD Nucleated RBC (Bld) [#/Vol] 0 /100WBC Normal [facility] Comment on above: Performed By: #### 1 41688, 324833, [id number] ####[facility] [address] [place] [address] Medical Director: Fahad Cast MD Platelet mean volume (Bld) [Entitic vol] 6.7 fL Low 7.4-10.4 [facility] Comment on above: Performed By: #### 1 45329, 011984, [id number] ####[facility] [address] [place] [address] Medical Director: Fahad Cast MD Platelets (Bld) [#/Vol] 252 x1000 Normal 150-450 [facility] Comment on above: Performed By: #### 1 99372, 334889, 2508003 ####[facility] [address] [place] [address] Medical Director: Fahad Cast MD RBC (Bld) [#/Vol] 3.99 x10 Low 4.20-5.40 [facility] Comment on above: Result Comment: Note : RBC morphology is normal unless otherwise stated. Evaluation performed only if differential is requested. Performed By: #### 1 98118, 960381, 7752860 ####[facility] [address] [place] [address] Medical Director: Fahad Cast MD WBC (Bld) [#/Vol] 8.3 10*3/uL Normal [facility] Comment on above: Performed By: #### 1 45888, 080978, [id number] ####[facility] [address] [place] [address] Medical Director: Fahad Cast MD WBC (Bld) [#/Vol] 8.3 x10 Normal 4.5-11.0 [facility] Comment on above: Performed By: #### 1 24369, 637424, 9438065 ####[facility] [address] [place] [address] Medical Director: Fahad Cast MD History and [...] Eliquis OT MESA on Normal [facility] LACTATEon 03-10-2020 Lactate [Moles/Vol] 1.8 mmol/L Normal 0.4-2.0 [facility] Comment on above: Performed By: #### 1 83296 #### [facility] [address] [place] [address] Back Maker: Fahad Cast MD LIPon 03-10-2020 Lipase [Catalytic activity/Vol] 135 unit/L Normal 73-393 [facility] Comment on above: Performed By: #### 1 99409, 785784, 655399 ####[facility] [address] [place] [address] Medical Director: Fahad Cast MD MG LEVELon 03-10-2020 Magnesium [Mass/Vol] 1.9 mg/dL Normal 1.6-2.6 [facility] Comment on above: Performed By: #### 1 73717, 597503, 867509 ####[facility] [address] [place] [address] Medical Director: Fahad Cast MD PCTon 03-10-2020 Procalcitonin <0.05 Normal [facility] Comment on above: Result Comment: INTE RP [...] or septic shock. Performed By: #### 1 00294, [id number], [id number], [id number] #### [facility] [address] [place] [address] Back Maker: Fahad Cast MD TROPONINon 03-10-2020 Troponin I.cardiac [Mass/Vol] ng/mL Normal 0.000-0.099 [facility] Comment on above: Result Comment: This test is a quantitative determination of cardiac troponin I. High levels of serum biotin may interfere with this test. Performed By: #### 1 08763, 935947, 695293 ####[facility] [address] [place] [address] Medical Director: Fahad Cast MD [...] by: Monae Hernandez MD 03/10/2020 1:58 PM AUDIOVISUAL PRODUCTION SPECIALIST Technologist: THANG JAMES Dictated By: MONAE HERNANDEZ MD Signed By: MONAE HERNANDEZ MD Signed Out: 03/10/20 14:58:26 Normal [facility] Vital Signs Date Time Vital Sign Value Performing Clinician Facility 06-02-2023 11:19-0500 Body height 165.1 cm Donna Diaz MD Work Phone: [facility] 06-02-2023 11:19-0500 Body mass index (BMI) [Ratio] 28.12 kg/m2 Donna Diaz MD Work Phone: [facility] 06-02-2023 11:19-0500 Body weight 76.66 kg Donna Diaz MD Work Phone: [facility] 06-02-2023 11:19-0500 Diastolic blood pressure 68 mm[Hg] Donna Diaz MD Work Phone: [facility] 06-02-2023 11:19-0500 Heart rate 62 /min Donna Diaz MD Work Phone: [facility] 06-02-2023 11:19-0500 SaO2% (BldA) [Mass fraction] 99 % Donna Diaz MD Work Phone: [facility] 06-02-2023 11:19-0500 Systolic blood pressure 106 mm[Hg] Donna Diaz MD Work Phone: [facility] 05-14-2023 09:38-0500 Body height 165.1 cm Miko Ohara MD Work Phone: [facility] 05-14-2023 09:38-0500 Body mass index (BMI) [Ratio] 29.12 kg/m2 Miko Ohara MD Work Phone: [facility] 05-14-2023 09:38-0500 Body temperature 98.2 [degF] Miko Ohara MD Work Phone: [employer] 05-14-2023 09:38-0500 Body weight 79.38 kg Miko Ohara MD Work Phone: [employer] 10-30-2022 14:45-0400 Body height 165.1 cm Elliot Starks Other [facility] Other 10-30-2022 14:45-0400 Body mass index (BMI) [Ratio] 28.4 kg/m2 Elliot Starks Other [facility] Other 10-30-2022 14:45-0400 Body weight 77.43 kg Elliot Starks Other [facility] Other 10-30-2022 14:45-0400 Diastolic blood pressure 66 mm[Hg] Elliot Starks Other [facility] Other 10-30-2022 14:45-0400 Systolic blood pressure 123 mm[Hg] Elliot Starks Other [facility] Other 06-04-2022 11:30-0500 Body height 165.1 cm Elliot Starks Other [facility] Other 06-04-2022 11:30-0500 Body mass index (BMI) [Ratio] 28.29 kg/m2 Elliot Starks Other [facility] Other 06-04-2022 11:30-0500 Body weight 77.11 kg Elliot Starks Other [facility] Other 06-04-2022 11:30-0500 Diastolic blood pressure 64 mm[Hg] Elliot Starks Other [facility] Other 06-04-2022 11:30-0500 SaO2% (BldA) [Mass fraction] 99 % Elliot Starks Other [facility] Other 06-04-2022 11:30-0500 Systolic blood pressure 104 mm[Hg] Elliot Starks Other [facility] Other Encounters Encounter Date Encounter Type Care Provider Facility Start: 06-01-2024 ambulatory Alfreda Miller [facility] Start: 06-02-2023 End: 06-02-2023 Office outpatient visit 25 minutes Donna Diaz MD Work Phone: [facility] Comment on above: Paroxysmal atrial fi brillation (CMS-HCC) (Primary Dx); Primary hypertension; Chronic coronary artery disease Start: 06-02-2023 End: 06-02-2023 ambulatory [facility] Start: 06-01-2023 ambulatory ELLIOT STARKS [facility] Start: 05-28-2023 ambulatory [facility] Start: 05-27-2023 End: 05-28-2023 ambulatory Alfreda Miller Facility:[facility] Start: 05-25-2023 End: 05-26-2023 ambulatory Daisy Liz MD Facility:[facility] Start: 05-18-2023 End: 05-19-2023 ambulatory Daisy Liz MD Facility:[facility] Start: 05-14-2023 ambulatory MIKO OHARA [facility] Start: 05-14-2023 ambulatory MIKO OHARA [facility] Start: 05-14-2023 End: 05-14-2023 Office outpatient new 30 minutes Miko Ohara MD Work Phone: [facility] Comment on above: Pain in prosthetic j oint, initial encounter (Primary Dx); Primary osteoarthritis of right hip Start: 05-14-2023 End: 05-14-2023 Subsequent hospital visit by physician Miko Ohara MD Work Phone: [facility] Start: 03-30-2023 (Televisit) Televisit Elliot Starks [facility] Start: 03-30-2023 End: 03-30-2023 ambulatory Elliot Starks Other [facility] Other Start: 02-11-2023 End: 02-12-2023 ambulatory Alfreda Miller Facility:[facility] Start: 02-11-2023 End: 02-11-2023 Patient encounter procedure Alfreda Miller [facility] Start: 12-29-2022 Preoperative state Donna franks MD Work Phone: [employer] Start: 11-17-2022 End: 11-17-2022 ambulatory Elliot Starks Other [facility] Other Start: 11-17-2022 Telephone encounter Elliot Starks [facility] Start: 11-06-2022 ambulatory Alfreda Miller Facility:[facility] Start: 10-30-2022 End: 10-30-2022 ambulatory Elliot Starks Other [facility] Other Start: 10-30-2022 Office outpatient vi sit 15 minutes Elliot Starks [facility] Start: 10-29-2022 End: 10-29-2022 ambulatory Elliot Starks Other [facility] Other Start: 10-29-2022 Telephone encounter Elliot Starks [facility] Start: 10-27-2022 Nursing evaluation o f patient and report Elliot Starks [facility] Start: 10-27-2022 End: 10-27-2022 ambulatory Elliot Starks [facility] Start: 10-27-2022 End: 10-27-2022 Departed Referred MD Elliot Starks Work Phone: [facility] Work Phone: Start: 09-11-2022 Telephone encounter Matt Duron H[facility]ology/Oncology Comment on above: Orders Start: 08-11-2022 End: 08-11-2022 ambulatory Elliot Starks Other [facility] Other Start: 08-11-2022 Nursing evaluation o f patient and report Elliot Starks [facility] Start: 07-17-2022 (Televisit) Televisit Elliot Starks F [facility] Start: 07-17-2022 End: 07-17-2022 ambulatory Elliot Starks Other [facility] Other Start: 06-23-2022 End: 06-23-2022 ambulatory Elliot Starks Other [facility] Other Start: 06-23-2022 Nursing evaluation o f patient and report Elliot Starks [facility] Start: 06-09-2022 End: 06-09-[address] ELLIOT STARKS Facility:[facility] Start: 06-06-2022 End: 06-06-2022 ambulatory Elliot Starks Other [facility] Other Start: 06-06-2022 Telephone encounter Elliot Starks [facility] Start: 06-04-2022 End: 06-04-2022 ambulatory Elliot Starks Other [facility] Other Start: 06-04-2022 Office outpatient vi sit 25 minutes Elliot Starks [facility] Start: 05-21-2022 End: 05-21-2022 ambulatory Elliot Starks Other [facility] Other Start: 05-21-2022 Telephone encounter Elliot Starks [facility] Start: 04-26-2022 End: 04-26-[address] ELLIOT STARKS Facility: Start: 04-14-2022 End: 04-14-[address] ELLIOT STARKS Facility: Start: 12-18-2021 End: 12-18-2021 ambulatory Melchor Goff [place] Facility:[facility] Start: 10-03-2021 Telephone encounter Andrew black MD Work Phone: Hematology/Oncology Comment on above: Lab Orders Start: 09-26-2021 Telephone encounter Elton jimenez RN Work Phone: Hematology/Oncology Comment on above: Radiology Mammogram Start: 12-02-2016 End: 12-03-2016 Ambulatory DEFAULT PHYSICIAN Facility:[facility] Procedures Date Procedure Procedure [...] Adult BMI Screening Adult BMI Screen ing [facility] Start: 06-02-2024 Tobacco Screening Tobacco Screening [facility] Start: 10-09-2023 DIABETES SCREEN DIABETES SCREEN [facility] Start: 05-28-2023 End: 05-28-2023 Patient encounter procedure 05/28/2023 11:00 AM EST Office Visit [facility] [address] [place] [address] Antelmo Richey, DO [address] [place] [address] [facility] Start: 05-14-2023 End: 05-14-2024 MR Hip - right WO contrast MRI HIP RIGHT WITHOUT CONTRAST Imaging Routine Pain in prosthetic joint, initial encounter Expected: 05/14/2023, Expires: 05/14/2024 [facility] Comment on above: Expected: 05/14/2023 , Expires: 05/14/2024 Start: 01-02-2023 COVID-19 VACCINE ( season) COVID-19 VACCINE ( season) [facility] Start: 01-02-2023 Influenza vaccination INFLUENZA (Sea son Ended) [facility] Start: 10-27-2022 Bacteria identified in Urine by Culture [facility] Start: 05-04-2022 ADVANCE DIRECTIVE DISCUSSION ADVANCE DIRECTIVE DISCUSSION [facility] Start: 05-04-2022 DEPRESSION ASSESSMENT DEPRESSION ASS ESSMENT [facility] Start: 04-08-2022 Screening for malign ant neoplasm of colon Colonoscopy [facility] Start: 01-02-2022 Influenza vaccination INFLUENZA (Sea son Ended) [facility] Start: 10-07-2021 End: 12-07-2021 Cancer Ag 27-29 [Units/volume] in Serum or Plasma CA 27.29 BLOOD Lab Routine Malignant neoplasm of upper-outer quadrant of left breast in female, estrogen receptor positive (HCC) Expected: 10/07/2021, Expires: 12/07/2021 [facility] Work Phone: Comment on above: Expected: 10/07/2021 , Expires: 12/07/2021 Start: 10-07-2021 End: 12-07-2021 CBC W Auto Differential panel - Blood CBC + DIFF Lab Routine Malignant neoplasm of upper-outer quadrant of left breast in female, estrogen receptor positive (HCC) Expected: 10/07/2021, Expires: 12/07/2021 [facility] Work Phone: Comment on above: Expected: 10/07/2021 , Expires: 12/07/2021 Start: 10-07-2021 End: 12-07-2021 Comprehensive metabolic 2000 panel - Serum or Plasma COMP METABOLIC PANEL Lab Routine Malignant neoplasm of upper-outer quadrant of left breast in female, estrogen receptor positive (HCC) Expected: 10/07/2021, Expires: 12/07/2021 [facility] Work Phone: Comment on above: Expected: 10/07/2021 , Expires: 12/07/2021 Start: 09-25-2021 Mammography MAMMOGRAM [facility] Start: 05-04-2021 ADVANCE DIRECTIVE DISCUSSION ADVANCE DIRECTIVE DISCUSSION [facility] Start: 11-17-2020 COVID-19 VACCINE (3 - Booster for Pfizer series) COVID-19 VACCINE (3 - Booster for Pfizer series) [facility] Start: 10-06-2020 Adult depression screening assessment DEPRESSION SCREENING [facility] Start: 08-15-2020 COVID-19 VACCINE (3 - Booster for Pfizer series) COVID-19 VACCINE (3 - Booster for Pfizer series) [facility] Start: 01-05-2019 PNEUMOCOCCAL: 65+ (2 - PCV) PNEUMOCOCCAL: 65+ (2 - PCV) [facility] Start: 07-07-2012 BONE DENSITY BONE DENSITY [facility] Start: 07-07-2012 Fall Risk Screening Fall Risk Screen ing [facility] Start: 07-07-1997 Administration of varicella zoster vaccine Zoster (Shingles) Vaccine (1 of 2) [facility] Start: 07-07-1997 SHINGRIX VACCINE (1 of 2) SHINGRIX VACCINE (1 of 2) [facility] Start: 07-07-1997 Zoster vaccine hzv l david for subcutaneous use ZOSTER (SHINGLES) VACCINE (1 of 2) [facility] Start: 07-07-1992 COLOGUARD (FIT-DNA) COLOGUARD (FIT-D NA) [facility] Start: 07-07-1992 Colonoscopy COLONOSCOPY [facility] Start: 07-07-1992 COLORECTAL CANCER SCREENING COLORECTAL CANCER SCREENING [facility] Start: 07-07-[address] COLONOGRAPHY [facility] Start: 07-07-1992 FECAL OCCULT BLOOD FECAL OCCULT BLOO D [facility] Start: 07-07-1992 LIPID SCREEN LIPID SCREEN [facility] Start: 07-07-1992 Screening for malign ant neoplasm of colon COLORECTAL CANCER SCREENING DISCUSSION [facility] Start: 07-07-1992 SIGMOIDOSCOPY SIGMOIDOSCOPY [facility] Start: 1987 Lipid panel LIPID SCREENING [facility] Start: 1987 Screening for malign ant neoplasm of breast MAMMOGRAM SCREENING DISCUSSION [facility] Start: 07-07-1968 Screening for malign ant neoplasm of cervix CERVICAL CANCER SCREENING DISCUSSION [facility] Start: 07-07-1966 DTaP,Tdap and Td Vaccines (1 - Tdap) DTaP,Tdap and Td Vaccines (1 - Tdap) [facility] Start: 07-07-1966 Third diphtheria, tetanus and acellular pertussis (DTaP) vaccination TDAP (ADULT) [facility] Start: 07-07-1966 Urine microalbumin profile DTAP,TDAP,TD (1 - Tdap) [facility] Start: 07-07-1965 Adult BMI Follow Up Plan Adult BMI F ollow Up Plan [facility] Start: 07-07-1965 HEPATITIS C SCREENING HEPATITIS C SC GUNNER [facility] Start: 1959 Depression Screening Depression Scre ening [facility] Start: 07-07-1953 PNEUMOCOCCAL: 65+ (1 - PCV) PNEUMOCOCCAL: 65+ (1 - PCV) [facility] Start: 1947 Hepatitis C screening HEPATITI S C VIRUS SCREENING [facility] Start: 1947 Medicare Annual Well ness Visit Medicare Annual Wellness Visit [facility] Start: 1947 Potassium [Moles/vol ume] in Serum or Plasma POTASSIUM [facility] Start: 1947 Screening for osteoporosis DEXA SCAN DISCUSSION [facility] Start: 1947 Tetanus vaccination TETANUS [facility] End: 10-26-2022 AUGUSTINA SCREENING W YAW AUGUSTINA SCREENING [facility] Radiology Routine Encounter for screening mammogram for malignant neoplasm of breast 1 Occurrences starting 09/26/2021 until 10/26/2022 [facility] Work Phone: Comment on above: 1 Occurrences starti ng 09/26/2021 until 10/26/2022 End: 10-11-2023 AUGUSTINA SCREENING W YAW AUGUSTINA SCREENING W YAW Radiology Routine Encounter for screening mammogram for malignant neoplasm of breast 1 Occurrences starting 09/11/2022 until 10/11/2023 [facility] Work Phone: Comment on above: 1 Occurrences starti ng 09/11/2022 until 10/11/2023 XR Pelvis and Hip - right Views XR HIP WITH PELVIS RIGHT Imaging Routine Primary osteoarthritis of right hip 05/14/2023 9:20 AM [facility] Work Phone: [facility] Immunizations Immunization Date Immunization Notes Care Provider Pablo [facility] 02-10-2023 influenza virus vaccine, unspecified formulation Alfreda Lue [facility] 02-01-2022 influenza virus vaccine, unspecified formulation Alfreda Lue [facility] 08-13-2021 SARS-CoV-2 mRNA (hykmbfxoemg-zixc-lmror se) vaccine Alfreda Lue [facility] 01-29-2021 SARS-CoV-2 (COVID-19 ) mRNA BNT-162b2 vax Alfreda Lue [facility] Comment on above: Result Comment: 2022: [id number] 06-20-2020 COVID-19 vaccine, ag e 12+ yr (Rota dos [employer]cursos - PURPLE TOP) Elton Dominguez RN Work Phone: [facility] 05-28-2020 SARS-CoV-2 (COVID-19 ) mRNA BNT-162b2 vax Alfreda Lue [facility] 05-18-2020 COVID-19 vaccine, ag e 12+ yr (PFIZER-Intelligent Clearing NetworkNTFantasy Buzzer - PURPLE TOP) Elton Dominguez RN Work Phone: [facility] 01-27-2020 influenza virus vaccine, split virus (incl. purified surface antigen) Elliot Starks Other [facility] Other 01-27-2020 influenza virus vaccine, unspecified formulation Alfreda Lue [facility] 01-20-2019 influenza virus vaccine, unspecified formulation Alfreda Lue [facility] 01-20-2019 influenza, high dose seasonal, preservative-free Elton Dominguez RN Work Phone: [facility] 03-09-2018 influenza virus vaccine, unspecified formulation Alfreda Lue [facility] 01-05-2018 influenza virus vaccine, split virus (incl. purified surface antigen) Elliot Starks Other [facility] Other 01-05-2018 influenza virus vaccine, unspecified formulation Alfreda Lue [facility] 01-05-2018 influenza, high dose seasonal, preservative-free Elton Dominguez RN Work Phone: [facility] 01-05-2018 pneumococcal polysaccharide vaccine, 23 valent Elton Dominguez RN Work Phone: [facility] 02-25-2017 influenza virus vaccine, unspecified formulation Alfreda Lue [facility] 02-17-2017 pneumococcal polysaccharide vaccine, 23 valent Alfreda Lue [facility] 02-05-2017 influenza virus vaccine, split virus (incl. purified surface antigen) Elliot Starks Other [facility] Other 02-05-2017 influenza virus vaccine, unspecified formulation Alfreda Miller [facility] 02-05-2017 pneumococcal conjuga te vaccine, 13 valent Alfreda Miller [facility] 02-01-2002 pneumococcal polysaccharide vaccine, 23 valent Elliot Starks Other [facility] Other Payers Date Payer Category Payer Private Health Insurance 2022 Self-pay 2014 Medicare AETNA MEDICARE A ETNA MEDICARE PPO [id number] 2014-Present [phone] [address] [place] [address] PPO [id number] 2014 Medicare [id number] 1959 Medicare [id number] 1945 Unknown [id number] 2.16.840.1.290880.3.579.2.5 93 1945 Unknown [id number] 2.16.840.1.824207.3.579.2.5 93 1947 Unknown [id number] 2.16.840.1.288413.3.579.2.5 93 1947 Unknown [id number] 2.16.840.1.330699.3.579.2.7 18 1947 Unknown [id number] 2.16.840.1.971264.3.579.2.1 96 1947 Unknown [id number] 2.16.840.1.933615.3.579.2.1 96 1947 Unknown [id number] 2.16.840.1.077640.3.579.2.9 83 1947 Unknown [id number] 2.16.840.1.630786.3.579.2.9 83 1947 Unknown [id number] 2.16.840.1.552527.3.579.2.9 83 1947 Unknown [id number] 2.16.840.1.800212.3.579.2.9 83 1947 Unknown [id number] 2.16.840.1.670310.3.579.2.9 83 1947 Unknown [id number] 2.16.840.1.320829.3.579.2.7 27 1947 Unknown [id number] 2.16.840.1.723004.3.579.2.7 27 1947 Unknown [id number] 2.16.840.1.813086.3.579.2.7 27 1947 Unknown [id number] 2.16.840.1.776579.3.579.2.1 286 Private Health Insurance [facility] [id number] Unknown Unknown [id number] 2.16.840.1.568176.3.579.2.5 31 Social History Date Type Detail Facility Start: 12-03-2015 End: 03-31-2022 Tobacco smoking status NHIS Ex-smoker [facility] End: 12-05-1990 History of tobacco use Current smoker [facility] Start: 12-03-2015 End: 05-15-2020 Cigarettes smoked current (pack per day) - Reported 1 [facility] Start: 12-03-2015 End: 03-31-2022 Tobacco use and exposure Smokeless tobacco non-user [facility] Start: 10-08-2020 End: 06-02-2023 Alcohol intake Current drinker of alcohol (finding) [facility] Start: 1945 Sex Assigned At Not on file [facility] Start: 05-15-2020 End: 05-14-2023 Sex Assigned At [facility] End: 12-05-1990 History of tobacco use Cigarette Smoker [facility] Start: 1945 Sex Assigned At Female F [facility] Tobacco smoking status Never [facility] Start: 05-14-2023 Tobacco smoking stat us NHIS Never smoked tobacco [facility] Start: 03-31-2022 Tobacco Comment quit in 1989 [facility] Start: 03-19-2017 Alcohol Comment social [facility] Start: 05-09-2018 Gender identity Identifies as female gender (finding) [facility] Functional Status Date Assessment Result Facility 02-11-2023 Functional Status N/A [facility] Clinical Notes 09-26-2021 to 06-02-2023 [...] issues. Past Medical History: Diagnosis Date [place] hx of Arrhythmia 12/2016 ATRIAL FIBRILLATION Arthritis Breast cancer [place] 11/14/2015 LEFT COVID-19 03/2020 History of bleeding ulcers Hypertension Migraines Pneumonia d/t covid Prolonged emergence from general anesthesia Visual impairment glasses No data recorded No data recorded No data recorded Past Surgical History: Procedure Laterality Date ABLATION OF DYSRHYTHMIC FOCUS Right nerve ablation, L4 and L5 Afib ablation with SHANICE - CRYO, Rhythmia, ICE N/A 09/28/2018 Performed by Amber Quiñonez MD at [facility] () ARTHROSCOPY REPAIR ROTATOR CUFF SHOULDER Right 05/16/2020 Performed by Melchor Rivera DO at [facility] ARTHROSCOPY SHOULDER Right 05/16/2020 Performed by Melchor Rivera DO at [facility] BREAST BIOPSY Left 2015 BREAST LUMPECTOMY Left 11/14/2015 WITH RADIATION BREAST SURGERY Left 2012 lumpectomy CATARACT EXTRACTION CHOLECYSTECTOMY COLONOSCOPY Coronary angiogram and left ventricular gram/pressure N/A 08/08/2021 Performed by Bertram Lal MD at [facility] CARDIAC CATH LABS EYE SURGERY lids [...] STARKS MD Referring Physician: Elliot Starks MD [facility] [place] [address] documented [facility] History of Present illness Narrative Ortho Nurse - 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 Referring Physician: Self, Self Insurance: Payor: MEDICARE AETNA HMO OR PPO / Plan: MEDICARE [employer] PPO / Product Type: *No Product type* [...] [x]cane, []bracing Are you followed by a patient financial rep? [x] [] Name: Dr. Waleska Lowe Are you followed by pain management? [x] [] Name: Dr. Wilian Wayne @ [facility] Are you followed by any other specialists? [x] [] Name: Oncolgist - Dr. Choi [facility] Urologist - Dr. Christian Bourne Outpatient Medications [...] abductor muscles as well as ESR/CRP and Fonda and Chromium labs today. I will see [...] APPENDECTOMY BREAST LUMPECTOMY FOOT SURGERY HEART CATHETERIZATION VA ENDOMETRIAL CRYOABLATION REMOVAL BILIARY DUCT/GALLBLADDER CALCULI/DEBRIS PERCUTANEOUS [...] Oxycodone Penicillins Tramadol documented in this encounter [facility] 03-30-2023 Evaluation note Encounter Date [...] verbalizes understanding and agrees with tx plan. [facility] Other 10-11-2023 NoteChief Complaint Referral *Frequent UTI [...] she was put on a long term acute care registered nurse abx which has helped a lot. Pt [...] a hematuria workup including a scope, at [facility]. Occasional visible blood w/UTI. UA today shows moderate blood. Discussed doing a hematuria workup if the pt would like to. Pt states that she is not worried aboutthis and does not see the need to have t (more content not included)...[facility] AdministrationComment on above:Result Comment: Electronically Signed By: Paul VILLEGAS, Alfreda Villavicencio.br\Date and Time Signed: 02/11/23 12:13EDT\.br\Electronically Co-Signed By: Karlee Ramos.cassandra\Date and Time Co-Signed: 02/11/23 11:16 [id number] Hospital Discharge instructions Patient Education 02/11/2023 11:16:08 [...] provider. Document Revised: 08/29/2021 Document Reviewed: 08/29/2021 [employer] Patient Education 2022 [employer]. Follow Up Care 11/06/2022 15:31:52 With:Paul VILLEGAS, Alfreda Palacios URL, URO Address: When:Within 3 Month(s) [facility] 07-17-2023 Evaluation note* Encounter Date Diagnosis Assessment Notes Treatment Notes Treatment Clinical Notes Nov, Dysuria (ICD-10 - R30.0) [facility] Other 06-29-2023 Evaluation note* Encounter Date Diagnosis Assessment Notes Treatment Notes Treatment Clinical Notes Oct, Frequent UTI (ICD-10 - N39.0) Pt requests Urology referral. Discussed also getting CT to move along process. Oct, Dyshidrotic eczema (ICD-10 - L30.1) Will treat with steroid cream prn [facility] Other 06-26-2023 Evaluation note* Encounter Date Diagnosis Assessment Notes Treatment Notes Treatment Clinical Notes Oct, Dysuria (ICD-10 - R30.0) [facility] Other 05-11-2023 Miscellaneous Notes* Telephone Encounter - Matt Adams RN - 09/11/2022 11:43 AM EDT Order faxed to [facility] and pt is aware. Matt Adams RN * Telephone Encounter - Matt Adams RN - 09/11/2022 9:51 AM EDT Pt called to request yearly Mammogram order I have pended order as previously completed Pt requests to fax to Nori Lema [phone] BRM/HM: please review and sign if agreeable Matt Adams, RN [facility]* Encounter Date Diagnosis Assessment Notes Treatment Notes Treatment Clinical Notes Aug, Dysuria (ICD-10 - R30.0) [facility] Other 03-16-2023 Evaluation note* Encounter Date Diagnosis [...] N32.81) chronic and improved on present med [facility] Other 02-20-2023 Evaluation note* Encounter Date Diagnosis Assessment Notes Treatment Notes Treatment Clinical Notes Jun, Dysuria (ICD-10 - R30.0) [facility] Other 02-03-2023 Evaluation note* Encounter Date Diagnosis Assessment Notes Treatment Notes Treatment Clinical Notes Jun, OAB (overactive bladder) (ICD-10 - N32.81) [facility] Other 02-01-2023 Evaluation note* Encounter Date Diagnosis Assessment Notes Treatment Notes Treatment Clinical Notes Jun, OAB (overactive bladder) (ICD-10 - N32.81) Patient request to try new medication reviewed side effect profile. Patient declines urology or QUESTIONED DOCUMENTS EXAMINER referral at this time. Jun, Essential hypertension (ICD-10 - I10) reviewed and updated medications she will follow-up with cardiology in Jun, Hypokalemia (ICD-10 - E87.6) Reviewed and updated medications. Discussed foods that are high in potassium Jun, Right lumbar pain (ICD-10 - M54.50) Follow-up with Dr. Rivera as scheduled in June. She does have limping with her gait. [facility] Other 05-26-2022 Miscellaneous Notes* Telephone Encounter - Andrew Choi MD - 09/26/2021 5:13 PM EDT Okay to change to screening mammogram. Order signed. ASIYA Ford * Telephone Encounter - Elton Dominguez RN - 09/26/2021 2:33 PM EDT Pt scheduled for diagnostic mamm tomorrow @ [facility] Hospital calls to ask if this could be changed to a screening mammogram since the pt is greater than 2 years from diagnosis? [facility] Future Appointments Appointment Date:05/27/2023 08:45:00 AM Scheduled Provider:Alfreda Miller MD Location:[facility] Appointment Type:URO Office Visit [facility] evaluation note* Diagnosis Encounter for screening mammogram for malignant neoplasm of breast- Primary Other screening mammogram documented in this encounter [facility] note* Diagnosis Malignant neoplasm of upper-outer quadrant of left breast in female, estrogen receptor positive (HCC)- Primary documented in this encounter [facility] noteNo InformationNort [place] Other Evaluation note* Diagnosis Encounter for screening mammogram for malignant neoplasm of breast- Primary Other screening mammogram documented in this encounter [facility] noteNo assessment information [facility] Work Phone: Evaluation note* Diagnosis Pain in prosthetic joint, initial encounter- Primary Primary osteoarthritis of right hip Primary localized osteoarthrosis, pelvic region and thigh [facility] Diagnosis Paroxysmal atrial fibrillation (CMS-HCC)- Primary Atrial fibrillation Primary hypertension Unspecified essential hypertension Chronic coronary artery disease Coronary atherosclerosis of unspecified type of vessel, ruby or graft documented in this encounter [facility] Narrative - Reported* Type Description Date [...] replacement 12/16/2021 Hospitalization History SEE SURGICAL HX [facility] Other Hospital course Narrative No data available for this section [facility] InstructionsNot on filedocumented in this encounter [employer] note No data available for this section [facility] [employer] reason for referral (narrative)* Diagnostic Procedure Only (Routine) - Pending Review Specialty Diagnoses / Procedures Referred By Juan wren Referred To Contact [facility] Diagnoses Encounter for screening mammogram for malignant neoplasm of breast Procedures AUGUSTINA SCREENING W YAW SCREENING DIGITAL BREAST TOMOSYNTHESIS BI SCREENING MAMMOGRAPHY BI 2-VIEW BREAST INC Andrew Miguel MD [address] [place] [address] [place] [address] [facility] [address] [place] [phone] Referral ID Status Reason Start Date Expiration Date Visits Requested Visits Authorized [id number] Pending Review Auto-Generat ed Referral 09/26/2021 10/26/2022 1 1 [facility] for referral (narrative)* Diagnostic Procedure Only (Routine) - Pending Review Specialty Diagnoses / Procedures Referred By Juan wren Referred To Contact [facility] Diagnoses Encounter for screening mammogram for malignant neoplasm of breast Procedures AUGUSTINA SCREENING W YAW SCREENING DIGITAL BREAST TOMOSYNTHESIS BI SCREENING MAMMOGRAPHY BI 2-VIEW BREAST INC Andrew Miguel MD [facility] [place] [address] [facility] [address] [place] [address] Referral ID Status Reason Start Date Expiration Date Visits Requested Visits Authorized [id number] Pending Review Auto-Generat ed Referral 09/11/2022 10/11/2023 1 1 [facility] Summary Purpose Family History No Family [...] FoundDocuments on File Type Date Recorded 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 Living Will 05/21/2020 9:37 AM Durable Power of Capacitor Inspector 05/21/2020 9:27 AM Durable Power of Capacitor Inspector 05/16/2020 6:05 AM Living Will 05/16/2020 6:04 AM Reason for Referral Specialty Diagnoses / Procedures Referred By Contac t Referred To Contact Diagnoses Pain in prosthetic joint, initial encounter Procedures MRI HIP RIGHT WITHOUT CONTRAST VA MRI LOWER EXTREM JT, W/O CONTRAST Miko Ohara MD [address] [place] [id number] Referral ID Status Reason Start Date Expiration Date V isits Requested Visits Authorized [id number] New Request 05/14/2023 06/07/2024 1 1 Specialty Diagnoses / Procedures Referred By Contac t Referred To Contact Diagnoses Pain in prosthetic joint, initial encounter Procedures COBALT AND CHROMIUM,WB Miko Ohara MD [address] [place] [id number] Referral ID Status Reason Start Date Expiration Date V isits Requested Visits Authorized [id number] New Request 05/14/2023 06/07/2024 1 1 Specialty Diagnoses / Procedures Referred By Contac t Referred To Contact Diagnoses Primary osteoarthritis of right hip Procedures XR HIP WITH PELVIS RIGHT Miko Ohara MD [address] [place] [id number] Referral ID Status Reason Start Date Expiration Date V isits Requested Visits Authorized [id number] New Request 05/06/2023 05/30/2024 1 1 Reason *FU 11/12 Jason office Diagnosis 1 Frequent UTI (N39.0) Referral Organization [facility] linmanuel Referring Provider First Name Elliot Referring Provider Last Name Raudel Referring Provider Specialty Family [facility] Referred Organization [facility] Referred Provider PAULALFREDA Referred Address [address] [place],[address] Referred Provider Specialty Urology Referral Priority Routine General Notes Victoria Lisa 11:03:05 AM >received today, notes attached, along with labs and ins, waiting for notes to be locked before faxing Victoria Lisa 11/05/2022 02:44:05 PM >referral faxed Additional Source Comments INFORMATION SOURCE (unrecogn ized section and content) DATE CREATED AUTHOR 10/28/2017 [facility] DATE CREATED AUTHOR AUTHOR'S ORGANIZ ATION 03/21/2020 [facility] DATE CREATED AUTHOR AUTHOR'S ORGANIZ ATION 09/13/2021 [facility] dical Specialist DATE CREATED AUTHOR AUTHOR'S ORGANIZ ATION 06/11/2022 [facility] DATE CREATED AUTHOR AUTHOR'S ORGANIZ ATION 09/13/2022 [facility] DATE CREATED AUTHOR AUTHOR'S ORGANIZ ATION 11/18/2022 [facility] DATE CREATED AUTHOR AUTHOR'S ORGANIZ ATION 05/20/2023 [facility] DATE CREATED AUTHOR AUTHOR'S ORGANIZ ATION 05/29/2023 [facility] DATE CREATED AUTHOR AUTHOR'S ORGANIZ ATION 06/02/2023 [facility] DATE CREATED AUTHOR AUTHOR'S ORGANIZ ATION 06/06/2023 [facility] DATE CREATED AUTHOR AUTHOR'S ORGANIZ ATION 06/07/2023 [facility] Source Comments (unrecognize d section and content) In the event this informatio n is protected by the Federal Confidentiality of Alcohol and Drug Abuse Patient Records regulations: The Federal rules restrict any use of the information to criminally investigate or prosecute any alcohol or drug abuse patient.[facility] Hospital[facility] the event this information is protected by the Federal Confidentiality of Alcohol and Drug Abuse Patient Records regulations: The Federal rules restrict any use of the information to criminally investigate or prosecute any alcohol or drug abuse patient.[facility] Hospital[facility] the event this information is protected by the Federal Confidentiality of Alcohol and Drug Abuse Patient Records regulations: The Federal rules restrict any use of the information to criminally investigate or prosecute any alcohol or drug abuse patient.[facility] Reason for Visit (unrecogniz ed section and content) Reason Comments Radiology Mammogram Reason Comments Lab Orders Reason Comments Orders Specialty Diagnoses / Procedures Referred By Contac t Referred To Contact Diagnoses Primary osteoarthritis of right hip Procedures XR HIP WITH PELVIS RIGHT Miko Ohara MD [address] [place] [address] Referral ID Status Reason Start Date Expiration Date V isits Requested Visits Authorized [id number] New Request 05/06/2023 05/30/2024 1 1 Reason Comments Pain Reason Comments Follow-up est pt concerns of a fib per smart watch wants seen sooner. sched w/pt pt will arrive at 11:30 Care Teams (unrecognized sec tion and content) Civil Design Specialist Relationship Specialty Start Date End Date Elliot Starks MD [address] [place] [address] PCP - General Family Practice 11/26/15 Civil Design Specialist Relationship Specialty Start Date End Date Elliot Starks MD [address] [place] [address] PCP - General Family Practice 11/26/15 Civil Design Specialist Relationship Specialty Start Date End Date Elliot Starks MD [address] [place] [address] PCP - General Family Medicine 11/26/15 Team Status: Inactive Member Role Status Dates Elliot Starks MD Attending Provider Active Civil Design Specialist Relationship Specialty Start Date End Date Elliot Starks MD [address] [place] [address], [place] [address] PCP - General Family Medicine 05/11/23 Civil Design Specialist Relationship Specialty Start Date End Date Elliot Starks MD [address] [place] [address], [place] [id number] PCP - General Family Medicine 05/11/23 Civil Design Specialist Relationship Specialty Start Date End Date Elliot Starks MD [address] [place] [address], [place] [id number] PCP - General 03/17/17 Goals (unrecognized section [...] ON THE PRIMARY CLINICAL RECORDS. [facility] [employer] [facility]. provides no warranty or guarantee of the accuracy or completeness of information in this document.
--- NOTE | 2023-06-18 07:58 | P.CN_ITS ---
Consult Note: HPI Data of Consult Patient: known to practice within the last 3 years Consult date: 05/18/23 Requesting Physician: Larissa Turner NP Primary Care Provider: Marine Glass MD Consult Narrative Reason for consult: Neck pain Narrative: 77yof who presents for assessment. significant axial neck pain that is worsened with lateral rotation. denies any trauma to area. multiple ER trips, CT completed, which did not show any fracture, but significant for spondylosis in mid and lower cervical spine. she continues in >6 weeks of chiropractic therapy, but this has made pain worse. has tried MDP, muscle relaxant, with limited benefit. denies adverse med side effects. recently underwent bilateral C4/5 C5/6 facet medial branch block #2 with 90% improvement of pain and functional ability immediately following the procedure and days after. Reports significant improvement in myofascial pain as a result of recent TPI. Pain today 1/10, increases to 3/10 stiffness. cc:: CC: Larissa Turner NP Review of Systems 2 ROS Status of ROS 10 or more systems reviewed and unremark able except as noted in history and below Ears, nose, mouth, and throat Reports: neck pain PFSH PFSH Medical History Neck pain ?M54.2 - Cervicalgia (ICD-10) Upper back pain ?M54.9 - Dorsalgia, unspecified (ICD-10) Low back pain ?M54.50 - Low back pain, unspecified (ICD-10) Osteoarthritis ?M19.90 - Unspecified osteoarthritis, unspecified site (ICD-10) H/O malignant neoplasm of breast ?Z85.3 - Personal history of malignant neoplasm of breast (ICD-10) Hearing deficit ?H91.90 - Unspecified hearing loss, unspecified ear (ICD-10) Former smoker ?Z87.891 - Personal history of nicotine dependence (ICD-10) Hypertension ?I10 - Essential (primary) hypertension (ICD-10) Atrial fibrillation ?I48.91 - Unspecified atrial fibrillation (ICD-10) Cataract ?H26.9 - Unspecified cataract (ICD-10) Surgical History H/O total hip arthroplasty ?Z96.649 - Presence of unspecified artificial hip joint (ICD-10) H/O cardiac catheterization ?Z98.890 - Other specified postprocedural states (ICD-10) History of cholecystectomy ?Z90.49 - Acquired absence of other specified parts of digestive tract (ICD- 10) H/O: hysterectomy ?Z90.710 - Acquired absence of both cervix and uterus (ICD-10) H/O foot surgery ?Z98.890 - Other specified postprocedural states (ICD-10) H/O eye surgery ?Z98.890 - Other specified postprocedural states (ICD-10) H/O shoulder surgery ?Z98.890 - Other specified postprocedural states (ICD-10) H/O breast surgery ?Z98.890 - Other specified postprocedural states (ICD-10) Social History Smoking status: Never smoker Meds Home Medications and Allergies Home Medications Medication Instructions Recorded Confirmed Type apixaban 5 mg tablet (Eliquis) 5 mg PO BID 10/28/22 06/08/23 History atenolol 50 mg tablet 75 mg PO DAILY 10/28/22 06/08/23 History baclofen 10 mg tablet 20 mg PO TID 10/28/22 06/08/23 History hydrochlorothiazide 25 mg tablet 25 mg PO DAILY 10/28/22 06/08/23 History lisinopril 20 mg tablet 20 mg PO DAILY 10/28/22 06/08/23 History neuveria vitamin DAILY 10/28/22 History omeprazole 20 mg tablet,delayed 20 mg PO DAILY 10/28/22 06/08/23 History release potassium 10 mg PO DAILY 10/28/22 06/08/23 History temazepam 30 mg capsule 30 mg PO QPM 10/28/22 06/08/23 History trospium 20 mg tablet 20 mg PO Q12H 04/02/23 06/08/23 History orphenadrine citrate 100 mg 100 mg PO DAILY PRN muscle spasm 05/16/23 06/08/23 Rx tablet,extended release #14 tabs Allergies Allergy/AdvReac Type Severity Reaction Status Date / Time acetaminophen [From Vicodin] Allergy Severe Verified 06/08/23 07:59 hydrocodone [From Vicodin] Allergy Severe Verified 06/08/23 07:59 codeine Allergy Unknown Verified 06/08/23 07:59 levofloxacin [From Levaquin] Allergy Unknown Verified 06/08/23 07:59 morphine Allergy Unknown Verified 06/08/23 07:59 Penicillins Allergy Unknown Verified 06/08/23 07:59 tramadol Allergy Unknown Verified 06/08/23 07:59 Exam Narrative Exam Narrative: Psych-alert and oriented x 3.? Attentive and appropriate, constitutionally normal, displays normal mood and affect per situation.? There are no obvious deficits in memory, reasoning, or intellect.? Skin-no obvious rashes, bruising, or erythema noted to the patient's area of pain. Extremities-upper extremities are warm with minimal edema and palpable pulses. Cervical- tenderness to palpation noted in the cervical spine and paraspinal musculature. mild pain is elicited with extension, and lateral rotation of the cervical spine.? Range of motion is slightly diminished due to pain. Facet loading maneuvers are positive bilaterally.? Coordination remains intact.? Gait remains non-antalgic. Constitutional Documenting provider has reviewed patient's vital signs: yes Common normals: no apparent distress, oriented x3, healthy appearing, alert and well nourished General appearance: cooperative HENOR Common normals: normocephalic, hearing grossly normal bilaterally and moist oral mucous membranes Head and scalp: normocephalic Eye Common normals: PERRL Pupil: PERRL Neck & C-Spine Common normals: full ROM General: normal visual inspection Chest Common normals: inspection of chest normal Respiratory Common normals: normal respiratory effort, no retractions and no use of accessory muscles Neuro Common normals: oriented x3, CN's II-XII intact bilaterally, moves all extremities, no focal motor deficits, no sensory deficits noted and deep tendon reflexes 2+ bilaterally Sensorium/orientation: alert Motor exam: strength 5/5 throughout and no movement abnormalities noted Psych Common normals: mental status grossly normal, thought process normal, cooperative, affect normal, speech normal and activity/motor behavior normal Speech: normal speech Thought process: normal thought process Results Additional Findings Additional findings: I have checked an [place] report on this patient today and there are no aberrancies noted in the prescribing history.?? A drug screen was completed and reviewed within the last year, and if there has not been a drug screen completed we ordered one today to monitor higher risk, state monitored pain medication use. As part of providing excellent, safe, comprehensive care, the following was completed at our patient's visit: 1. A medication reconciliation and review to ensure accurate knowledge of current/active medications, including asking our patients to inform us about any [id number] medications or herbal remedies/nutritional supplements/alternative remedies. 2. A review to specifically ensure our patients have had annual screening for: elevated body mass index (BMI), tobacco use, screening for depression, and screening for unhealthy alcohol use. When screening is concerning, patients are provided with education and the specific recommendation to discuss the concerning health issue and treatment options with their primary care provider. Assessment and Plan Assessment and Plan (1) Myofascial pain syndrome, cervical: (2) Cervical spondylosis: Plan defer cervical RFA at this time as pain is well controlled, patient no longer experiences moderate to severe pain and found the TPI and nerve blocks to be very effective continue baclofen 10mg TID PRN continue PRN tylenol, caution NSAIDs with eliquis patient will call if pain worsens or to be evaluated for repeat TPI vs cervical RFA
== END 2023-06-18 07:45 | disposition home or self-care (01) ==
LOC: PM 07:45
PROVIDERS: PCP Family Medicine; Visit Provider Nurse Practitioner
DX: M79.18 Myalgia, other site (principal); M47.812 Spondylosis without myelopathy or radiculopathy, cervical region
CPT/HCPCS: G0463

== ENCOUNTER 2023-09-11 13:18 | Outpatient (RCR) | payer MEDICARE, SELFPAY | END 2023-12-01 17:05 | disposition home or self-care (01) | LOC: PT 13:18 | PROVIDERS: PCP Family Medicine; Visit Provider Nurse Practitioner Family | DX: M25.551 Pain in right hip (principal) | CPT/HCPCS: 97110; 97112; 97113; 97116; 97162 ==

== ENCOUNTER 2023-11-04 12:34 | Outpatient (OUT) | payer MEDICARE, SELFPAY ==
--- NOTE | 2023-11-04 12:48 | PM.CN ---
Consult Note: HPI Data of Consult Patient: known to practice within the last 3 years Consult date: 05/18/23 Requesting Physician: Larissa Turner NP Primary Care Provider: Marine Glass MD Consult Narrative Reason for consult: low back and right hip pain Narrative: 78yof who presents for assessment. hx of chronic low back pain that responds well to right L4-5 L5-S1 facet RFA. she continues in >6 weeks of chiropractic therapy, but this has made pain worse. has tried MDP, muscle relaxant, with limited benefit. patient utilizing ran aspirin on occasion for pain, failed tylenol. on eliquis, should avoid all NSAIDs. Patient following with Dr Pascual after repair of right hip abduction muscle repair 07/07/23, upcoming appointment 11/26/23, Patient feels her RFA is wearing off, has noticed increase right back pain over the last month, pain today 5/10 aching sharp increased with twisting pushing pulling standing walking bending activity and stairs. cc:: CC: Larissa Turner NP Review of Systems ROS Status of ROS 10 or more systems reviewed and unremarkable except as noted in history and below Musculoskeletal Reports: back pain and joint pain PFSH [facility] Medical History Neck pain ?M54.2 - Cervicalgia (ICD-10) Upper back pain ?M54.9 - Dorsalgia, unspecified (ICD-10) Low back pain ?M54.50 - Low back pain, unspecified (ICD-10) Osteoarthritis ?M19.90 - Unspecified osteoarthritis, unspecified site (ICD-10) H/O malignant neoplasm of breast ?Z85.3 - Personal history of malignant neoplasm of breast (ICD-10) Hearing deficit ?H91.90 - Unspecified hearing loss, unspecified ear (ICD-10) Former smoker ?Z87.891 - Personal history of nicotine dependence (ICD-10) Hypertension ?I10 - Essential (primary) hypertension (ICD-10) Atrial fibrillation ?I48.91 - Unspecified atrial fibrillation (ICD-10) Cataract ?H26.9 - Unspecified cataract (ICD-10) Surgical History H/O total hip arthroplasty ?Z96.649 - Presence of unspecified artificial hip joint (ICD-10) H/O cardiac catheterization ?Z98.890 - Other specified postprocedural states (ICD-10) History of cholecystectomy ?Z90.49 - Acquired absence of other specified parts of digestive tract (ICD-10) H/O: hysterectomy ?Z90.710 - Acquired absence of both cervix and uterus (ICD-10) H/O foot surgery ?Z98.890 - Other specified postprocedural states (ICD-10) H/O eye surgery ?Z98.890 - Other specified postprocedural states (ICD-10) H/O shoulder surgery ?Z98.890 - Other specified postprocedural states (ICD-10) H/O breast surgery ?Z98.890 - Other specified postprocedural states (ICD-10) Social History Smoking status: Never smoker Meds Home Medications and Allergies Home Medications ?Medication ?Instructions ?Recorded ?Confirmed ?Type apixaban 5 mg tablet (Eliquis) 5 mg PO BID 10/28/22 06/08/23 History atenolol 50 mg tablet 75 mg PO DAILY 10/28/22 06/08/23 History baclofen 10 mg tablet 20 mg PO TID 10/28/22 06/08/23 History hydrochlorothiazide 25 mg tablet 25 mg PO DAILY 10/28/22 06/08/23 History lisinopril 20 mg tablet 20 mg PO DAILY 10/28/22 06/08/23 History neuveria vitamin DAILY 10/28/22 History omeprazole 20 mg tablet,delayed 20 mg PO DAILY 10/28/22 06/08/23 History release potassium 10 mg PO DAILY 10/28/22 06/08/23 History temazepam 30 mg capsule 30 mg PO QPM 10/28/22 06/08/23 History trospium 20 mg tablet 20 mg PO Q12H 04/02/23 06/08/23 History orphenadrine citrate 100 mg 100 mg PO DAILY PRN muscle spasm 05/16/23 06/08/23 Rx tablet,extended release #14 tabs baclofen 10 mg tablet 10 mg PO TID #270 tabs 08/06/23 Rx baclofen 10 mg tablet 10 mg PO TID PRN muscle spasm #270 08/07/23 Rx tabs Allergies Allergy/AdvReac Type Severity Reaction Status Date / Time acetaminophen [From Vicodin] Allergy Severe Verified 06/08/23 07:59 hydrocodone [From Vicodin] Allergy Severe Verified 06/08/23 07:59 codeine Allergy Unknown Verified 06/08/23 07:59 levofloxacin [From Levaquin] Allergy Unknown Verified 06/08/23 07:59 morphine Allergy Unknown Verified 06/08/23 07:59 Penicillins Allergy Unknown Verified 06/08/23 07:59 tramadol Allergy Unknown Verified 06/08/23 07:59 Exam Constitutional Documenting provider has reviewed patient's vital signs: yes Common normals: no apparent distress, oriented x3, healthy appearing, alert and well nourished General appearance: cooperative HENMT Common normals: normocephalic, hearing grossly normal bilaterally and moist oral mucous membranes Head and scalp: normocephalic Eye Common normals: PERRL Pupil: PERRL Neck & C-Spine Common normals: full ROM General: normal visual inspection Chest Common normals: inspection of chest normal Respiratory Common normals: normal respiratory effort, no retractions and no use of accessory muscles Back & Pelvis Lumbar spine/lower back: ROM limited, pain with ROM and straight leg raise negative bilaterally Sacroiliac joints: SI joint(s) abnormal Other: right positive jovanna(patricks), gaenslens, thigh thrust, compression test strength 5/5 in BLE sensation intact BLE Extremity Common normals: normal to inspection and full ROM Neuro Common normals: oriented x3, CN's II-XII intact bilaterally, moves all extremities, no focal motor deficits, no sensory deficits noted and deep tendon reflexes 2+ bilaterally Sensorium/orientation: alert Motor exam: strength 5/5 throughout and no movement abnormalities noted Psych Common normals: mental status grossly normal, thought process normal, cooperative, affect normal, speech normal and activity/motor behavior normal Speech: normal speech Thought process: normal thought process Results Additional Findings Additional findings: If on a controlled substance or opioids, I have checked an [place] report on this patient and there are no aberrancies noted in the prescribing history.??If on a controlled substance or opioid a drug screen was completed and reviewed within the last year, and if there has not been a drug screen completed we ordered one today to monitor higher risk, state monitored pain medication use. As part of providing excellent, safe, comprehensive care, the following was completed at our patient's visit: 1. A medication reconciliation and review to ensure accurate knowledge of current/active medications, including asking our patients to inform us about any [id number] medications or herbal remedies/nutritional supplements/alternative remedies. 2. A review to specifically ensure our patients have had annual screening for screening for depression, screening for tobacco use, and screening for unhealthy alcohol use. For concerning screenings had a discussion with the patient, provided patient education, and recommended follow-up with primary care provider when appropriate. If patient noted with a risk of falling, they received education on strength, gait, and balance training to prevent future risk of falling. Assessment and Plan Assessment and Plan (1) Sacroiliitis: (2) Lumbar spondylosis: Plan recommending right SIJ injection under fluoroscopy, pt can call to schedule after appointment with Dr Pascual 11/26/23 consider repeat right L4-5 L5-S1 facet joint RFA for axial low back pain in the future as previous RFA provided >50% improvement greater than 6 months continue baclofen 10mg TID PRN, declining additional medication options at this time f/u 2 weeks after injection
--- OUTSIDE RECORDS SUMMARY | 2023-11-04 12:57 | XMS_ITS | CCD ---
Author Organization [facility] Care Team Providers Care Aluminum Pourer Name Role Phone PHYSICIAN, DEFAULT Unavailable Unavailable [...] Attending Unavailable LUANA VILLAFANA Consulting Unavailable JOAQUÍN TAKINS Consulting Unavailable Elliot Starks Unavailable Elliot Starks MD Primary Care Provider [phone] MD Elliot Starks Attending Provider Elliot Starks Admitting Unavailable Elliot Starks Attending Unavailable ELLIOT STARKS Primary Care Physician Elliot Starks MD Primary Care Provider Melchor Rivera Admitting Unavail able Melchor Rivera Attending Unavail able Elliot Starks Primary Care Unavailable Ricci Perez Consulting Unavailable Elliot Starks MD Primary Care Provider [phone] Alfreda Miller Attending Unavailable ELLIOT STARKS Referring Unavailable Alfreda Miller Attending Unavailable Alfreda Miller Attending Unavailable Agusto VILLEGAS, Daisy Dietz Attending Unavailable Agusto VILLEGAS, Daisy Dietz Attending Unavailable Agusto VILLEGAS, Daisy Dietz Attending Unavailable Elliot Starks MD Primary Care Provider Elliot Starks MD Primary Care Provider ELLIOT STARKS E Primary Care Unavailable BLANTON, EILEEN Attending Unavailable BLANTON, EILEEN Attending Unavailable BLANTON, EILEEN Referring Unavailable STARKS, ELLIOT E Primary Care Unavailable DONNA DIAZ Attending Unavailable STARKS, ELLIOT E Referring Unavailable STARKS, ELLIOT E Primary Care Unavailable MIKO VASQUEZ Attending Unavailable STARKS, ELLIOT E Referring Unavailable STARKS, ELLIOT E Primary Care Unavailable ANDREW CHOI Referring Unavailable STARKS, ELLIOT E Primary Care Unavailable FOSTER, MIKO Attending Unavailable STARKS, ELLIOT Primary Care Unavailable FOSTER, MIKO Referring Unavailable STARKS, ELLIOT Primary Care Unavailable BROCWELL, DIVINE M Attending Unavailable BROCWELL, DIVINE M Referring Unavailable STARKS, ELLIOT Primary Care Unavailable BROCWELL, DIVINE M Attending Unavailable BROCWELL, DIVINE M Referring Unavailable STARKS, ELLIOT Primary Care Unavailable BROCWELL, DIVINE M Attending Unavailable SELF, SELF Referring Unavailable STARKS, ELLIOT Primary Care Unavailable BROCWELL, DIVINE M Attending Unavailable BROCWELL, DIVINE M Referring Unavailable SELF, SELF Referring Unavailable STARKS, ELLIOT Primary Care Unavailable FOSTER, MIKO Attending Unavailable FOSTER, MIKO Referring Unavailable FOSTER, MIKO Attending Unavailable STARKS, ELLIOT Primary Care Unavailable FOSTER, MIKO Attending Unavailable STARKS, ELLIOT Primary Care Unavailable FOSTER, MIKO Referring Unavailable PAULA FITZPATRICK Referring Unavailable ANTELMO RICHEY Attending Unavailable STARKS, ELLIOT Primary Care Unavailable FOSTER, MIKO Attending Unavailable STARKS, ELLIOT Primary Care Unavailable FOSTER, MIKO Referring Unavailable FOSTER, MIKO Attending Unavailable STARKS, ELLIOT Primary Care Unavailable FOSTER, MIKO Referring Unavailable FOSTER, MIKO Admitting Unavailable FOSTER, MIKO Attending Unavailable STARKS, ELLIOT Primary Care Unavailable FOSTER, MIKO Referring Unavailable Allergies Allergy Classification Reported Allergen(s) Allergy Type Date of Onset Reaction(s) Facility (15 sources) Acetaminophen / HYDROcodone; 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: [HYDROCODONE-ACET AMINOPHEN] Drug Allergy 03-19-20 17 Unknown, Itching, Rash, Nausea Only [facility] (20 sources) Baclofen; 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: [baclofen] Drug Allergy 03-19-20 17 Unknown, Itching, Rash [facility] (14 sources) Codeine; 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: [codeine] Drug Allergy 08-09-19 09 Unknown, Itching, Rash [facility] (17 sources) levoFLOXacin; 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: [levofloxacin] Drug Allergy 03-19-20 17 Unknown, Itching, Rash, Nausea Only [facility] (20 sources) Morphine; 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: [morphine] Drug Allergy 08-09-19 09 [facility] (12 sources) oxyCODONE Drug Allergy 12-03-19 16 [facility] (4 sources) Penicillins; 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: [PENICILLINS] Drug Allergy 12-03-19 16 [facility] (1 source) Baclofen Drug Allergy [facility] (1 source) Codeine Drug Allergy [facility] (14 sources) levoFLOXacin; 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: [Levaquin] Drug Allergy Unknown [facility] (1 source) Morphine Drug Allergy 05-04-18 94 [facility] (1 source) oxyCODONE Drug Allergy 05-04-19 05 [facility] (1 source) Penicillins Drug allergy (disorder) 05-04-18 93 [facility] (3 sources) traMADol; 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: [Ultram] Drug Allergy [facility] (11 sources) Codeine Drug Allergy Unknown [facility] Other (14 sources) Penicillin; 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: [penicillin] Drug Allergy Unknown [facility] (20 sources) traMADol; 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: [tramadol] Drug Allergy 07-13-19 20 Itching [facility] (18 sources) zolpidem; 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: [zolpidem] Drug Allergy 07-04-19 23 Unknown, Hives [facility] (6 sources) Penicillins Drug Allergy 12-03-19 16 Hives, Rash [facility] (1 source) Non-steroidal anti-inflammatory agent Drug allergy 02-02-20 13 Unknown [facility] Other (7 sources) sulfADIAZINE; 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: [SULFADIAZINE] Drug Allergy 07-04-19 23 Comment:Sulfa [facility] Other (1 source) Ultram *ANALGESICS - OPIOID* Propensity to adverse reactions Unknown [facility] Other (1 source) Vioxx *ANALGESICS - ANTI-INFLAMMATORY * Propensity to adverse reactions Unknown [facility] Other (1 source) Penicillin G Benzathine & Proc Drug allergy Unknown [facility] Other (1 source) Morphine Sulfate (Concentrate) *ANALGESICS - OPIOI Propensity to adverse reactions Unknown [facility] Other (1 source) Allergies Reconciled Propensity to adverse reactions Unknown [facility] Other (1 source) patient allergy list reviewed by nurse or physicia Propensity to adverse reactions 02-02-20 13 Comment:Done [facility] Other (1 source) Vicodin *ANALGESICS - OPIOID* Propensity to adverse reactions Unknown [facility] Other (2 sources) calcitonin Drug allergy 10-28-19 24 Unknown, [facility] (8 sources) Penicillins Propensity to adverse reactions to drug 05-14-19 [facility] (1 source) Acetaminophen / HYDROcodone; 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: [Vicodin] Drug Allergy [facility] (1 source) Adhesive Tape; 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: [Tape] Propensity to adverse reactions (disorder) [facility] (5 sources) Adhesive agent; 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: [ADHESIVE] Propensity to adverse reactions to drug 07-04-19 23 [facility] (5 sources) penicillin G benzathine / penicillin G procaine; Translations: [PENICILLIN G BENZATHIN,PROCAIN ] Drug Allergy 07-04-19 23 [facility] (6 sources) rofecoxib; Translations: [ROFECOXIB] Drug Allergy 07-04-19 23 [facility] (1 source) Morphine; Translations: [Morphine Sulfate] Drug Allergy [facility] (1 source) zolpidem; Translations: [Ambien] Drug Allergy [facility] (6 sources) Latex Propensity to adverse reactions to drug 06-19-19 24 [facility] (6 sources) *Adhesive Tape Propensity to adverse reactions 07-04-19 23 [facility] (4 sources) Cephalexin Drug Allergy 07-09-19 Nausea Only, Dry Mouth, [place] [facility] (1 source) Acetaminophen Drug Allergy 10-28-19 24 [facility] (1 source) HYDROcodone Drug Allergy 10-28-19 [facility] (1 source) Penicillin G Benzathine Allergy to substance 10-28-19 [facility] Medications Current Medications Medication Drug Class(es) Dates Sig (Normalized) Sig (Original) atenolol 50 mg oral tablet (20 sources) beta-Adrenergic Eli Start: 07-24-2023 take 1.5 tablets by mouth in the morning atenoloL (TENORMIN) 50 mg tablet Take 1.5 tablets (75 mg total) by mouth in the morning. 135 tablet 3 07/24/2023 Active Start: 2023 End: 2023 take 75 mg by mouth once daily 75 mg, Oral, DAILY, [facility]ir st dose on Thu07/08/23 at 0900, Until Discontinued Start: 06-24-2023 take 50 mg by mouth once daily Atenolol Active 50 MG PO Daily June 24, 2023 1:00am Start: 09-10-2022 End: 07-24-2023 take 1.5 tablets by mouth in the morning atenoloL (TENORMIN) 50 mg tablet Take 1.5 tablets (75 mg total) by mouth in the morning. 135 tablet 3 09/10/2022 07/24/2023 Discontinued Start: 08-31-2017 atenolol (TENO RMIN) 50 mg [...] Jul, Active baclofen 10 mg oral tablet (13 sources) gamma-Aminobutyric Acid-ergic Agonist Start: 06-24-2023 take 10 mg by mouth once daily Baclofen Active 10 MG PO Daily June 24, 2023 1:00am take 1 tablet by mirza th three times daily as needed baclofen 10 MG tablet Take 1 tablet by mouth 3 times daily. NEEDED Active take 1 tablet by mirza th three times daily as needed baclofen (LIORESAL) 20 mg tablet Take 1 tablet (20 mg total) by mouth 3 (three) times a day. PRN 0 Active benzonatate 200 mg oral capsule (4 sources) Non-narcotic Antitussive Start: 07-17-2022 take 1 capsule by mouth every eight hours Benzonatate 200 MG 1 capsule Orally Three times a day for 10 day(s) Jul, Active cephalexin 500 mg oral capsule (1 source) Cephalosporin Antibacterial Start: 07-07-2023 End: 07-14-2023 take 1 capsule by mouth every eight hours cephALEXin 500 MG capsule Take 1 capsule by mouth every 8 hours for 7 days. 21 capsule 07/07/2023 07/14/2023 Active clarithromycin 500 mg oral tablet (4 sources) Macrolide Antimicrobial Start: 07-23-2023 End: 07-22-2024 clarithromycin 500 MG tablet Take one tab one hour prior to dental procedure. 2 tablet 1 07/23/2023 07/22/2024 Active cyclobenzaprine hydrochloride 10 mg oral tablet (4 sources) Muscle Relaxant Start: 01-13-2019 take 1 tablet by mouth every twelve hours as needed cyclobenzaprine (FLEXERIL) 10 mg tablet Take 10 mg by mouth twice daily as needed. 0 01/13/2019 Active Comment on above: Take 10 mg by mouth twice daily as needed. cycloSPORINE 0.5 mg/ml ophthalmic suspension (1 source) Calcineurin Inhibitor Immunosuppressant Start: 10-28-2023 take 0.05 drop(s) into the eye(s) every twelve hours Cyclosporine (Restasis Multidose) 0.05 % drops Active 1 DROPS EYE-BOTH Every 12 hours October 28, 2023 12:00am docusate sodium 100 mg oral capsule (6 sources) Start: 07-07-2023 End: 2023 take 1 capsule by mouth twice daily Docusate 100 MG capsule Take 1 capsule by mouth 2 times daily. 60 capsule 07/07/2023 Active estradiol 0.1 mg/ml vaginal cream (5 sources) Estrogen Start: 02-11-2023 ESTRACE VAGINAL 0.1 MG/GM cream See Instructions, 42.5 gm, Refill(s) 3, apply pea size amount to urethra/inner vagina 3x/week x 1 month, then 2x/week for maintainence, [facility]/pharmacy #[id number], 165, cm, 02/11/23 10:41:00 EDT, Height/Length Dosing, 77.5, kg, 02/11/23 10:41:00 EDT, Weight Dosing 02/11/2023 Active Start: 02-11-2023 Estrace 0.1 mg /g Cream See Instructions, 42.5 gm, Refill(s) 3, apply pea size amount to urethra/inner vagina 3x/week x 1 month, then 2x/week for maintainence, [facility]/pharmacy #[id number], 165, cm, 02/11/23 10:41:00 EDT, Height/Length Dosing, 77.5, kg, 02/11/23 10:41:00 EDT, Weight Dosing Start Date: 02/11/23 Status: Ordered flecainide acetate 50 mg oral tablet (9 sources) Antiarrhythmic Start: 10-28-2023 take 50 mg by mouth every twelve hours Flecainide Active 50 MG PO Every 12 hours October 28, 2023 12:00am Start: 07-15-2023 End: 08-14-2023 take 1 tablet by mouth twice daily Flecainide 50 MG tablet Take 1 tablet by mouth Twice daily. 07/15/2023 Active Start: 10-06-2017 flecainide (TA MBOCOR) 100 mg tablet Take 100 mg by mouth. 0 10/06/2017 Active Comment on above: Take 100 mg by mouth . hydroCHLOROthiazide 25 mg oral tablet (20 sources) Thiazide Diuretic Start: 2022 End: 2023 take 25 mg by mouth once daily Hydrochlorothiazide Active 25 MG PO Daily June 24, 2023 1:00am hydroCHLOROthiazide 25 mg / losartan potassium 100 mg oral tablet (4 sources) Thiazide Diuretic, Angiotensin 2 Receptor Eli Start: 2018 losartan-hydrochlorothiaz rudolph (HYZAAR) 100-25 mg per tablet [employer] (1 source) Start: 2022 take 1 mg by mouth once daily Iron Chews mg, Oral, Daily, Refills(s) 0 Start Date: 02/11/23 Status: Ordered lifitegrast 50 mg/ml ophthalmic solution (4 sources) Lymphocyte Function-Associat ed Antigen-1 Antagonist Start: 2018 XIIDRA 5 % dpet lisinopril 20 mg oral tablet (20 sources) Angiotensin Converting Enzyme Inhibitor Start: 2018 End: 2023 take 20 mg by mouth once daily Lisinopril Active 20 MG PO Daily June 24, 2023 1:00am take 1 tablet by mouth once watson y Lisinopril 5 MG tablet Take 1 tablet by mouth daily. 0 Active LORazepam 1 mg oral tablet (4 sources) Benzodiazepine LORazepam (ATIVA N) 1 mg tablet Take 1 mg by mouth. 0 Active Comment on above: Take 1 mg by mouth. melatonin 10 mg oral tablet (1 source) Start: 02-12-20 take 1 mg by mouth once daily at bedtime melatonin 10 mg oral tablet mg tab(s), Oral, Once a day (at bedtime), Refills(s) 0 Start Date: 02/11/23 Status: Ordered meperidine hydrochloride 50 mg oral tablet (4 sources) Opioid Agonist meperidine (DEMEROL) 50 mg tablet Take 25 mg by mouth as needed. 0 Active Comment on above: Take 25 mg by mouth as needed. 24 hr mirabegron 50 mg extended release oral tablet (1 source) beta3-Adrenergic Agonist Start: 02-12-20 take 1 tablet by mouth once daily mirabegron 50 mg oral tablet, extended release 50 mg = 1 tab(s), Oral, Daily, # 30 tab(s), Refills(s) 11, Pharmacy: [facility]/pharmacy #[id number], 165, cm, 02/11/23 10:41:00 EDT, Height/Length Dosing, 77.5, kg, 02/11/23 10:41:00 EDT, Weight Dosing Start Date: 02/11/23 Status: Ordered Multiple Vitamin (multivitamin) capsule (4 sources) take 1 capsule by mouth once daily Multiple Vitamin (multivitamin) capsule Take 1 capsule by mouth daily. Active Aleve (5 sources) Nonsteroidal Anti-inflammatory Drug Start: 02-12-20 take 1 mg by mouth every twelve [...] for 7 days Jun, Active NON FORMULARY (4 sources) NON FORMULARY Me d Name:Neuveria vitamin 1 qd 0 Active NON-FORMULARY (4 sources) NON-FORMULARY Me d Name:Neuveria vitamin 1 qd Active omeprazole 40 mg delayed release oral capsule (20 sources) Proton Pump Inhibitor Start: 06-24-2023 take 40 mg by mouth once daily Omeprazole Active 40 MG PO Daily June 24, 2023 1:00am Start: 02-11-2023 omeprazole 40 mg Cap-DR Refills(s) 0 Start Date: 02/11/23 Status: Ordered Omeprazole (PRIL OSEC) 40 mg capsule Take 20 mg by mouth twice daily. 0 Active take 20 mg by mouth once daily in the morning OMEPRAZOLE PO Take 20 mg by mouth daily. am Active take 1 capsule by mo uth in the morning omeprazole (PriLOSEC) 20 mg capsule Take 1 capsule (20 mg total) by mouth in the morning. 0 Active take 1 capsule by mo uth once daily omeprazole [address] Take 1 capsule by mouth daily. 0 Active Omeprazole 40 mg TAKE 2 CAPSULES DAILY Active take 1 capsule by mo uth once daily Omeprazole 40 MG 1 capsule 30 minutes before morning meal Orally Once a day Active Comment on above: Take 20 mg by mouth twice daily. 24 hr oxybutynin chloride 5 mg extended release oral tablet (8 sources) Cholinergic Muscarinic Antagonist Start: 06-06-2022 take 1 tablet by mouth every twenty-four hours Ditropan XL 5 MG 1 tablet Orally Once a day for 90 days Jun, Active potassium chloride 10 meq extended release oral tablet (20 sources) Start: 03-31-2022 End: 2023 potassium chloride (K-TAB,KLOR-CON) 10 MEQ CR tablet [...] a day for 10 day(s) Oct, Active SUMAtriptan 25 mg oral tablet (19 sources) Serotonin-1b and Serotonin-1d Receptor Agonist Start: 09-12-2016 SUMAtriptan (IMITREX) 25 mg tablet Take 25 mg by mouth as needed. 0 09/12/2016 Active Comment on above: Take 25 mg by mouth as needed. triamcinolone acetonide 1 mg/ml topical cream (2 sources) Corticosteroid Start: 10-30-2022 Triamcinolone Acetonide 0.1 % 1 application Externally Twice a day for 7 days Oct, Active trospium chloride 20 mg oral tablet (16 sources) Cholinergic Muscarinic Antagonist Start: 06-29-2023 take 20 mg by mouth twice daily Trospium Active 20 MG PO Twice daily June 29, 2023 2:33pm Start: 06-24-2023 End: 06-29-2023 take 20 mg by mouth once daily Trospium Discontinued 2 0 MG PO Daily June 24, 2023 1:00am June 29, 2023 2:33pm Start: 06-24-2023 End: 06-29-2023 Trospium Discontinued MG PO June 24, 2023 1:00am June 29, 2023 2:33pm Trospium Chlorid e Active Vitamins A,C,F-Rtbe-Oeglvx (Preservision Areds) 4,296 mcg-226 mg-90 mg capsule (1 source) Start: 10-28-2023 take 1 capsule by mouth twice daily Vitamins A,C,G-Xrvh-Gtkwxs (Preservision Areds) 4,296 mcg-226 mg-90 mg capsule Active 1 CAP PO Twice daily October 28, 2023 12:00am Completed/Discontinued Medications Medication Drug Class(es) Dates Sig (Normalized) Sig (Original) acetaminophen 500 mg oral tablet (7 sources) Start: 07-07-2023 End: 2023 take 1 tablet by mouth every six hours 1,000 mg, Oral, EVERY 6 HOURS NON-STANDARD, First dose on Thu07/07/23 at 1845, Until Discontinued, Post-op/Post-Proc Start: 07-07-2023 take 2 tablets by mo [facility] every four hours as needed Acetaminophen 325 MG tablet Take 2 tablets by mouth every 4 hours as needed for Mild Pain. 50 tablet 1 07/07/2023 Active Start: 07-07-2023 take 1 dose by mouth every vince r 1,000 mg, Oral, ONCE DIRECTED, 1 dose, Starting on Thu07/07/23 at 1003, Until Thu07/07/23 at 1043, See admin instructions, Administer 1 hour preop., Pre-op/Pre-Proc apixaban 2.5 mg oral tablet (20 sources) Factor Xa Inhibitor Start: 07-07-2023 End: 07-12-2023 take 2.5 mg by mouth every twelve hours in the morning 2.5 mg, Oral, EVERY 12 HOURS, First dose on Thu07/08/23 at 0900, Until Discontinued, Start in AM day after surgery, Indications: Venous Thromboembolism, Post-op/Post-Proc Start: 06-24-2023 take 1 tablet by mouth once Ap ixaban (Eliquis) 5 mg tablet Active 5 MG PO Once June 24, 2023 1:00am Start: 08-31-2017 take 1 tablet by mirza twice daily apixaban (ELIQUIS) 5 mg tab(s) Take 5 mg by mouth twice daily. 0 08/31/2017 Active take 2 tablets by mo [facility] every twelve hours apixaban 2.5 MG tablet Take 2 tablets by mouth every 12 hours. Active apixaban 2.5 MG tablet Take by mouth every 12 hours. 0 Active Comment on above: Take 5 mg by mouth t wice daily. aspirin 325 mg oral tablet (4 sources) Platelet Aggregation Inhibitor, Nonsteroidal Anti-inflammatory Drug End: 024 take 1 tablet by mouth once daily Aspirin 325 MG tablet Take 1 tablet by mouth daily. 2023 Discontinued (Stop Taking at Discharge) bisacodyl 10 mg rectal suppository (1 source) Stimulant Laxative Start: End: take 10 mg rectal route once daily as needed for constipation 10 mg, Rectal, DAILY NEEDED, Starting on Thu07/07/23 at 1637, Until Thu07/08/23 at 1920, constipation, Post-op/Post-Proc calcium chloride 0.0014 meq/ml / potassium chloride 0.004 meq/ml / sodium chloride 0.103 meq/ml / sodium lactate 0.028 meq/ml injectable solution (1 source) Start: End: Intravenous, at 75 mL/hr, CONTINUOUS, Starting on Thu07/07/23 at 1015, Until Thu07/07/23 at 1609, Pre-op/Pre-Proc ceFAZolin 2000 mg injection (1 source) Cephalosporin Antibacterial Start: End: take 2 g intravenously every eight hours 2 g, Intravenous, Administer over 30 Minutes, EVERY 8 HOURS NON-STANDARD, First dose on Thu07/07/23 at 2145, Until Discontinued, Post-op/Post-Proc dexamethasone phosphate 10 mg/ml injectable solution (1 source) Corticosteroid Start: End: take 10 mg intravenously every twenty-four hours 10 mg, Intravenous, EVERY 24 HOURS, 1 dose, First dose on Thu07/08/23 at 1530, 24 hours post op, Post-op/Post-Proc Start: 2023 End: 2023 take 10 mg intravenously every twenty-four hours 10 mg, Intravenous, EVERY 24 HOURS, 1 dose, First dose on Thu07/08/23 at 1530, 24 hours post op, Post-op/Post-Proc docusate sodium 50 mg / sennosides, snf 8.6 mg oral tablet (1 source) Start: 07-07-2023 End: 2023 take 2 tablets by mouth twice daily as needed for constipation 2 tablet, Oral, 2 TIMES DAILY NEEDED, Starting on Thu07/07/23 at 1637, Until Thu07/08/23 at 1920, constipation, Post-op/Post-Proc ferrous sulfate 325 mg oral tablet (2 sources) Start: 11-22-2021 End: 06-02-2023 take 1 tablet by mouth once daily at breakfast ferrous sulfate (FeroSuL) 325 (65 FE) mg tablet Take 1 tablet (325 mg total) by mouth daily with breakfast. 0 11/22/2021 06/02/2023 Discontinued (Therapy completed) 1 ml HYDROmorphone hydrochloride 1 mg/ml cartridge (1 source) Opioid Agonist Start: 07-07-2023 End: 2023 take 0.5 mg intravenously every four hours as needed 0.5 mg, Intravenous, EVERY 4 HOURS NEEDED, Starting on Thu07/07/23 at 1637, Until Thu07/08/23 at 1920, Severe Pain, Post-op/Post-Proc ketorolac tromethamine 10 mg oral tablet (1 source) Nonsteroidal Anti-inflammatory Drug, Cyclooxygenase Inhibitor Start: 06-24-2023 End: 06-29-2023 take 10 mg by mouth once Ketorolac Discontinued 10 MG PO Once June 24, 2023 1:00am June 29, 2023 2:31pm methylPREDNISolone 4 mg oral tablet (1 source) Corticosteroid Start: 06-24-2023 End: 06-29-2023 Methylprednisolone Discontinued 4 MG PO .COMPLEX June 24, 2023 1:00am June 29, 2023 2:31pm 4 mg orally; 2 ml ondansetron 2 mg/ml injection (1 source) Serotonin-3 Receptor Antagonist Start: 07-07-2023 End: 2023 take 4 mg intravenously every four hours as needed 4 mg, Intravenous, EVERY 4 HOURS NEEDED, Starting on Thu07/07/23 at 1637, Until Thu07/08/23 at 1920, Nausea / Vomiting, Post-op/Post-Proc 12 hr orphenadrine citrate 100 mg extended release oral tablet (1 source) Muscle Relaxant Start: 06-24-2023 End: 06-29-2023 Orphenadrine Citrate Discontinued MG PO June 24, 2023 1:00am June 29, 2023 2:32pm oxyCODONE hydrochloride 5 mg oral tablet (4 sources) Opioid Agonist Start: 07-07-2023 End: 2023 take 5-10 mg by mouth every four hours as needed 5-10 mg, Oral, EVERY 4 HOURS NEEDED, Starting on Thu07/07/23 at 1637, Until Thu07/08/23 at 1920, moderate-severe pain, If pain unrelieved with oxycodone, contact pharmacist to enter order for Oxycodone ER 10mg PO Q12H for 3 days, Post-op/Post-Proc Start: 07-07-2023 End: 07-14-2023 take 1-2 tablets by mouth every four to six hours as needed for pain oxyCODONE 5 MG tablet Indications: Acute postoperative pain of right hip Take 1-2 tabs po q 4-6 hours prn pain. Wean as tolerated. 30 tablet 07/07/2023 Active pantoprazole 40 mg delayed release oral tablet (1 source) Proton Pump Inhibitor Start: 2023 End: 2023 take 40 mg by mouth once daily 40 mg, Oral, DAILY, First dose on Thu07/08/23 at 0900, Until Discontinued, Indications: Continuation of Home Therapy, Inpt Stress Ulcer Prophylaxis potassium & sodium phosphates 280-160-250 MG Pack (4 sources) End: 2023 potassium & sodium phosphates 280-160-250 MG Pack Take by mouth. 2023 Discontinued (Stop Taking at Discharge) potassium & sodi um phosphates 280-160-250 MG Pack Take by mouth. Active potassium & sodi um phosphates 280-160-250 MG Pack Take by mouth. 0 Active ROPivacaine (NAROPIN) 1 % 400 mg, EPINEPHrine PF (ADRENALIN) 1 MG/ML 1 mg, Ketorolac (TORADOL) 30 MG/ML 30 mg, cloNIDine 100 MCG/ML 153 mcg, Sodium chloride 0.9% 45 mL in viaflex container 1 Each 88.53 mL (total volume) (1 source) Start: 07-07-2023 End: 07-07-2023 take 1 dose intravenously once Intra-articular, INTRA-OP ONCE, 1 dose, Starting on Thu07/07/23 at 1433, Until Thu07/07/23 at 1433, 88.53 mL, To be mixed by pharmacy NOT for IV use, Intra-op/Intra-Proc 1000 ml sodium chloride 9 mg/ml injection (1 source) Start: 07-07-2023 End: 2023 Intravenous, at 75 mL/hr, CONTINUOUS, Starting on Thu07/07/23 at 1645, Until Thu07/08/23 at 1920, Convert IV to PRN adapter post op day 1 if adequate oral intake, Post-op/Post-Proc sodium phosphate, dibasic 35.5 mg/ml / sodium phosphate, monobasic 96.4 mg/ml enema (1 source) Start: 07-07-2023 End: 2023 1 enema, Rectal, DAILY NEEDED, Starting on Thu07/07/23 at 1637, Until Thu07/08/23 at 1920, Refractory Constipation, use per package instructions, Post-op/Post-Proc temazepam 30 mg oral capsule (20 sources) Benzodiazepine Start: 08-23-2018 End: 10-16-2023 take 30 mg by mouth once Temazepam Discontinued 30 MG PO Once June 24, 2023 1:00am August 18, 2023 4:02pm take 2 capsules by m outh at bedtime as needed for sleep temazepam 15 MG capsule Take 2 capsules by mouth At bedtime as needed for Sleep. Active take 1 capsule by mo uth at bedtime as needed for sleep temazepam 15 MG capsule Take 1 capsule b y mouth At bedtime as needed for Sleep. 0 Active tranexamic acid 650 mg oral tablet (1 source) Antifibrinolytic Agent Start: 07-07-2023 End: 07-07-2023 take 1 dose by mouth every two hours 1,950 mg, Oral, ONCE DIRECTED, 1 dose, Starting on Thu07/07/23 at 1003, Until Thu07/07/23 at 1042, See admin instructions, Administer 2 hours preop, Pre-op/Pre-Proc 200 ml vancomycin 5 mg/ml injection (2 sources) Glycopeptide Antibacterial Start: 07-07-2023 End: 2023 1,000 mg, Intravenous, ONCE, 1 dose, On Thu07/08/23 at 0145, Infuse at a rate of 1 gram/hour. Extravasation Risk, Post-op/Post-Proc zolpidem tartrate 5 mg oral tablet (1 source) gamma-Aminobutyric Acid-ergic Agonist Start: 07-07-2023 End: 2023 take 5 mg by mouth once daily at bedtime as needed for sleep 5 mg, Oral, DAILY AT BEDTIME NEEDED, Starting on Thu07/07/23 at 1637, Until Thu07/08/23 at 1920, Sleep, Post-op/Post-Proc Problems Active Problems Problem Classification Problem Date Documented Date Episodic/Chronic Abdominal hernia (1 source) Diaphragmatic hernia; Translations: [Diaphragmatic hernia without mention of obstruction or gangrene] Episodic Acute bronchitis (1 source) Acute bronchitis due to other specified organisms Episodic Allergic reactions (1 source) Eczema 02-05-2023 Episodic Anal and rectal conditions (1 source) Disorder of rectum 02-05-2023 Episodic Cancer of breast (10 sources) 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; Translations: [Carcinoma in situ of breast] Onset: 10-30-2015 12-03-2015 Chronic Cardiac dysrhythmias (20 sources) Chronic atrial fibrillation; Translations: [Chronic atrial fibrillation, unspecified] Onset: 12-11-2016 Resolved: 12-30-2019 03-24-2018 Chronic Coronary atherosclerosis and other heart disease (6 sources) Coronary arteriosclerosis; Translations: [Atherosclerotic heart disease of [place] coronary artery without angina pectoris] Onset: 07-29-2021 Resolved: 08-16-2021 06-02-2023 Chronic E Codes: Natural/environment (1 source) Exposure to other specified factors, initial encounter; Translations: [EXPOSURE OTHER SPEC FACTORS INITIAL] Onset: 04-29-2022 Episodic Esophageal disorders (1 source) Gastro-esophageal reflux disease with esophagitis; Translations: [Gastro-esophageal reflux disease with esophagitis, without bleeding] Onset: [birth year]-04-1959 Chronic Essential hypertension (20 sources) Essential (primary) hypertension; Translations: [Essential hypertension] [...] including migraine; Translations: [HEADACHE UNSPECIFIED] Onset: 06-09-2022 Heart valve disorders (1 source) Irregular heart beat Onset: 07-15-2023 Episodic Malaise and fatigue (13 sources) Other fatigue; Translations: [Fatigue] Onset: 06-11-2022 Episodic Osteoarthritis (17 sources) Unspecified osteoarthritis, unspecified site; Translations: [Localized, primary osteoarthritis of the pelvic region and thigh] Onset: 06-11-2022 05-06-2023 Chronic Other aftercare (1 source) Other shelter (current) drug therapy; Translations: [OTH PENITENTIARY CURRENT DRUG THERAPY] Onset: 06-11-2022 Episodic Other aftercare (1 source) Long-term current use of anticoagulant; Translations: [alf (current) use of anticoagulants] Onset: 02-11-2023 Episodic Other bone disease and musculoskeletal deformities (12 sources) Other specified disorders of bone, shoulder; Translations: [Pain of right scapula] Episodic Other connective tissue disease (6 sources) History of repair of hip joint; Translations: [Presence of unspecified artificial hip joint] Onset: 2023 2023 Chronic Other diseases of bladder and urethra (11 [...] OF PNEUMONIA RECURRENT] Onset: 06-11-2022 Episodic Other nervous system disorders (2 sources) Hip pain; Translations: [Other acute postprocedural pain] 07-07-2023 Episodic Other non-traumatic joint disorders (10 sources) Arthralgia of the pelvic region and thigh; Translations: [Pain in right hip] Episodic Other non-traumatic joint disorders (3 sources) Pain in right hip; Translations: [Hip pain, right] Onset: 08-20-2023 Episodic Other non-traumatic joint disorders (3 sources) Pain in right hip joint; Translations: [Pain in right hip] 06-23-2023 Episodic Other skin disorders (1 source) Dyshidrosis [...] UTERUS] Onset: 06-11-2022 Episodic Residual codes; unclassified (12 sources) Insomnia; Translations: [Insomnia, unspecified] 08-18-2023 Episodic Residual codes; unclassified (1 source) Insomnia, [...] Translations: [Lumbar back pain] Onset: 07-04-2013 Episodic Sprains and strains (4 sources) Tendon rupture - hip; Translations: [Strain of muscle, fascia and tendon of right hip, initial encounter] Onset: 07-23-2023 07-07-2023 Episodic Superficial injury; contusion (1 source) Abrasion of left ear, initial encounter; Translations: [ABRASION LEFT EAR INITIAL ENCOUNTER] Onset: 04-29-2022 Episodic Unclassified (1 source) CONTACT W/AND (SUSP) EXPOS COVID-19; Translations: [CONTACT W/AND (SUSP) EXPOS COVID-19] Onset: 06-11-2022 Unclassified (1 source) Drug therapy finding 02-11-2023 Unclassified (1 source) Irregular Heart Rate Onset: 07-15-2023 Unclassified (2 sources) MRI Results; Translations: [MRI Results] Onset: 06-18-2023 Urinary tract infections (16 sources) Urinary tract infection, site not specified; Translations: [Acute urinary tract infection] Onset: 06-11-2022 Episodic Viral infection (12 sources) Disease caused by 2019-nCoV; Translations: [COVID-19] Past or Other Problems Problem Classification Problem Date Documented Date Episodic/Chronic Cancer of breast (20 sources) History of malignant neoplasm of breast; Translations: [Personal history of malignant neoplasm of breast] Onset: 09-23-2017 09-23-2017 Episodic Cardiac dysrhythmias (4 sources) Palpitations; Translations: [Palpitations] Onset: 06-30-2018 08-16-2021 Episodic Complication of device; implant or graft (6 sources) Joint pain; Translations: [Pain due to internal orthopedic prosthetic devices, implants and grafts, initial encounter] Onset: 06-01-2023 05-14-2023 Episodic Gastroduodenal ulcer (except hemorrhage) (2 sources) Personal history of peptic ulcer disease; Translations: [Acute gastric ulcer without hemorrhage, without perforation AND without obstruction] Onset: 05-11-2017 Episodic Mood disorders (4 sources) Mood disorders Onset: 04-24-2020 04-24-2020 Other connective [...] Onset: 06-17-2018 Episodic Other lower respiratory disease (12 sources) Dyspnea; Translations: [Shortness of breath] Onset: 05-12-2018 Resolved: 08-16-2021 05-12-2018 Episodic Other nervous system disorders (2 sources) Other acute postprocedural pain; Translations: [Other acute postprocedural pain] Onset: 07-07-2023 Episodic Other nutritional; endocrine; and metabolic disorders (2 sources) Body mass index 25-29 - overweight; Translations: [Body mass index 29.0-29.9, adult] Onset: 06-23-2016 Episodic Other nutritional; endocrine; and metabolic disorders (1 source) Overweight; Translations: [Overweight] Onset: 04-23-2018 Episodic Other screening for suspected conditions (not mental disorders or infectious disease) (20 sources) Patient encounter status; Translations: [Encounter for [...] Test Name Value Interpretation Reference Range Facility MAMM SCREENING BILATERAL W C director writing 09-30-2023 MAMM SCREENING BILATERAL W CAD MAMM SCREENING BILATERAL W CAD EXAM: MAMM SCREENING BILATERAL W CAD, 09/30/2023 10:32 AM CLINICAL INDICATIONS: Screening, Visit for screening mammogram COMPARISON: 2020, 2021, 2022 TECHNIQUE: Bilateral digital tomosynthesis MLO and CC views of the breasts were obtained, with creation of synthetic 2D views. Computer aided detection was utilized. FINDINGS: The breasts are almost entirely fatty. Stable tissue alteration left breast from lumpectomy. There are no suspicious masses, calcifications, or areas of architectural distortion. IMPRESSION: No mammographic evidence of malignancy. BI-RADS: BI-RADS 2 - Benign Recommendation: Follow up per ACR recommendations or as clinically indicated.. Finalized by Dalton Rasheed DO on 09/30/2023 2:57 PM 2 a FU ACR Normal [facility] BETTIE BURNS ([id number]) 1945 F Date Time Provider Department 09/17/23 MATT ADAMS During your visit today, we recorded the following information about you: Matt Adams RN 09/17/2023 10:20 AM Signed Pt called to request yearly Mammogram order I have pended order as previously completed Pt requests to fax to Nori Lema [phone] BRM/HM: please review and sign if agreeable RICARDO Lopez Natalie, RN 09/17/2023 1:31 PM Signed Order faxed to Torey Julio Pt aware. Matt Adams RN Allergies As of Date: 09/17/2023 Noted Allergy Reaction BACLOFEN 03/19/2017 16 - Unknown CODEINE 03/19/2017 16 - Unknown HYDROCODONE-ACETAMIN OPHEN 03/19/2017 16 - Unknown LEVOFLOXACIN 03/19/2017 16 - Unknown MORPHINE 12/03/2015 4 - Hives OXYCODONE 12/03/2015 4 - Hives PENICILLINS 12/03/2015 4 - Hives Date Reviewed: 03/16/2019 Reviewed by: Divine Self Ma, MA - Fully Assessed Reason for Visit: Yearly Exam With Mammogram [188] Primary Visit Diagnosis:Encounter for screening mammogram for malignant neoplasm of breast [Z12.31] Order(s):[facility] SCREENING W YAW [[id number]] Order #: [id number] FUTURE Prescriptions as of 09/17/2023 - lisinopril (ZESTRIL, PRINIVIL) 20 mg tablet [...] once daily. 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 PERFORMED AT [facility] Performed By: #### U MAC, UMIC #### Testing performed at [address] [address] *RFLX-FUNGUSon 08-06-2023 RESULT 1 Comment Normal [facility] Comment on above: Result Comment: No y east or mold isolated after 4 weeks. PERFORMED AT [facility] Performed By: #### U MAC, UMIC #### Testing performed at [address] [address] FUNGUS CULTUREon 08-06-2023 FUNGUS CULTURE Final report Normal [facility] [place] Comment on above: Result Comment: PERF ORMED AT [facility] Performed By: #### U MAC, UMIC #### Testing performed at [address] [address] CBC AND AUTO DIFFon 07-15-19 24 ABSOLUTE BASOPHIL 0.1 X10E9/L Normal 0.0-0.2 [facility] Comment on above: Performed By: #### C BCA, 19838-2, PINR, 77875-8, CMP, 85437-2, 62392-9, THYR, 42475-3 #### [facility] ([id number]) [address] [place] [address] ABSOLUTE NEUTROPHIL 2.8 X10E9/L Normal 1.5-6.6 [facility] Comment on above: Performed By: #### C BCA, 99400-4, PINR, 41423-4, CMP, 19319-4, 67463-5, THYR, 74744-4 #### [facility] ([id number]) [address] [place] [address] Basophils/100 WBC (Bld) 1.3 % Normal [place] Comment on above: Performed By: #### C BCA, 16352-9, PINR, 43341-5, CMP, 49605-9, 34536-3, THYR, 57331-9 #### [facility] ([id number]) [address] [place] [address] 36576 Eosinophils (Bld) [#/Vol] 0.7 10*3/uL High 0.0-0.4 [place] Comment on above: Performed By: #### C BCA, 46517-5, PINR, 69752-7, CMP, 37585-8, 97972-1, THYR, 93840-5 #### [facility] ([id number]) [address] [place] [address] Eosinophils/100 WBC (Bld) 11.9 % Normal [place] Comment on above: Performed By: #### C BCA, 80878-6, PINR, 50508-9, CMP, 35490-6, 83083-8, THYR, 36596-6 #### [facility] ([id number]) [address] [place] [address]26 Erythrocyte distribution width (RBC) [Ratio] 13.5 % Normal 11.5-15.0 [place] Comment on above: Performed By: #### C BCA, 76848-6, PINR, 26632-8, CMP, 18623-9, 82275-0, THYR, 46723-1 #### [facility] ([id number]) [address] [place] [address] Hematocrit (Bld) [Volume fraction] 38.5 % Normal 35-47 [place] Comment on above: Performed By: #### C BCA, 34749-3, PINR, 48030-8, CMP, 91698-3, 20860-0, THYR, 96841-4 #### [facility] ([id number]) [address] [place] [address] Hemoglobin (Bld) [Mass/Vol] 13.3 g/dL Normal 11.7-15.5 [place] Comment on above: Performed By: #### C BCA, 19066-8, PINR, 84507-4, CMP, 08461-1, 91706-8, THYR, 92508-1 #### [facility] ([id number]) [address] [place] [address] Lymphocytes (Bld) [#/Vol] 1.8 10*3/uL Normal 1.0-3.5 [place] Comment on above: Performed By: #### C BCA, 57249-1, PINR, 22924-0, CMP, 81653-6, 41935-0, THYR, 80311-7 #### [facility] ([id number]) [address] [place] [address] Lymphocytes/100 WBC (Bld) 29.4 % Normal [place] Comment on above: Performed By: #### C BCA, 06767-8, PINR, 69591-9, CMP, 44890-8, 58007-5, THYR, 92020-9 #### [facility] ([id number]) [address] [place] [address] 06733 MCH (RBC) [Entitic mass] 32.8 pg Normal 27-34 [place] Comment on above: Performed By: #### C BCA, 12738-7, PINR, 98959-3, CMP, 07373-6, 32460-5, THYR, 88461-3 #### [facility] ([id number]) [address] [place] [address] 57869 MCHC (RBC) [Mass/Vol] 34.4 g/dL Normal 32-36 [place] Comment on above: Performed By: #### C BCA, 23174-3, PINR, 25628-8, CMP, 61876-8, 37880-5, THYR, 48213-1 #### [facility] ([id number]) [address] [place] [address] 84228 MCV (RBC) [Entitic vol] 95 fL Normal 80-100 [place] Comment on above: Performed By: #### C BCA, 65842-4, PINR, 77005-8, CMP, 09243-6, 09905-7, THYR, 48527-8 #### [facility] ([id number]) [address] [place] [address] 48108 Monocytes (Bld) [#/Vol] 0.8 10*3/uL Normal 0-0.9 [place] Comment on above: Performed By: #### C BCA, 92292-0, PINR, 36542-6, CMP, 55154-5, 58030-8, THYR, 64598-9 #### [facility] ([id number]) [address] [place] [address] 49993 Monocytes/100 WBC (Bld) 13.2 % Normal [place] Comment on above: Performed By: #### C BCA, 07437-4, PINR, 11831-5, CMP, 09767-2, 36959-8, THYR, 70310-8 #### [facility] ([id number]) [address] [place] [address] Neutrophils/100 WBC (Bld) 44.2 % Normal [place] Comment on above: Performed By: #### C BCA, 29990-2, PINR, 06404-7, CMP, 37425-8, 59011-9, THYR, 82417-1 #### [facility] ([id number]) [address] [place] [address] Platelet mean volume (Bld) [Entitic vol] 6.9 fL Low 7-12 [place] Comment on above: Performed By: #### C BCA, 77472-3, PINR, 96366-6, CMP, 93662-9, 58211-9, THYR, 21443-9 #### [facility] ([id number]) [address] [place] [address] 11713 Platelets (Bld) [#/Vol] 340 10*3/uL Normal 150-450 [place] Comment on above: Performed By: #### C BCA, 48808-6, PINR, 74402-5, CMP, 59291-3, 64386-4, THYR, 87832-5 #### [facility] ([id number]) [address] [place] [address] 22750 RBC COUNT 4.05 X10E12/L Normal 3.80-5.20 [place] Comment on above: Performed By: #### C BCA, 56231-8, PINR, 51320-7, CMP, 60994-4, 80130-9, THYR, 60896-4 #### [facility] ([id number]) [address] [place] [address] 34933 WBC (Bld) [#/Vol] 6.2 10*3/uL Normal 4.0-11.0 [facility] Comment on above: Performed By: #### C BCA, 72912-4, PINR, 11073-1, CMP, 90788-7, 50752-5, THYR, 57311-2 #### [facility] ([id number]) [address] [place] [address] [place] [address] COMPREHENSIVE METABOLIC PANE Roland 07-15-2023 Albumin [Mass/Vol] 3.5 g/dL Normal 3.2-5.3 [facility] Comment on above: Performed By: #### C BCA, 07561-2, PINR, 46094-3, CMP, 58074-3, 37626-3, THYR, 41435-4 #### [facility] ([id number]) [address] [place] [address] [place] [address] ALP [Catalytic activity/Vol] 52 U/L Normal 39-130 [place] Comment on above: Performed By: #### C BCA, 40880-4, PINR, 55935-5, CMP, 27993-8, 90148-0, THYR, 86837-0 #### [facility] ([id number]) [address] [place] [address] [place] [address] ALT [Catalytic activity/Vol] 13 U/L Normal 0-31 [place] Comment on above: Performed By: #### C BCA, 95395-8, PINR, 54882-5, CMP, 90447-2, 43975-1, THYR, 45028-8 #### [facility] ([id number]) [address] [place] [address] [place] [address] Anion gap [Moles/Vol] 10 mmol/L Normal 5-15 [place] Comment on above: Performed By: #### C BCA, 21328-9, PINR, 15346-2, CMP, 29329-6, 85085-8, THYR, 47691-2 #### [facility] ([id number]) [address] [place] [address] AST [Catalytic activity/Vol] 24 U/L Normal 0-41 [place] Comment on above: Performed By: #### C BCA, 63495-5, PINR, 16364-7, CMP, 12502-3, 26040-0, THYR, 81457-2 #### [facility] ([id number]) [address] [place] [address] 61519 Bilirubin [Mass/Vol] 0.7 mg/dL Normal 0.3-1.2 [place] Comment on above: Performed By: #### C BCA, 49743-9, PINR, 10573-0, CMP, 76702-7, 28973-6, THYR, 64918-0 #### [facility] ([id number]) [address] [place] [address] Calcium [Mass/Vol] 9.4 mg/dL Normal 8.5-10.5 [facility] Comment on above: Performed By: #### C BCA, 84167-5, PINR, 49822-6, CMP, 01114-6, 30435-0, THYR, 58413-9 #### [facility] ([id number]) [address] [place] [address] 51428 Chloride [Moles/Vol] 102 mmol/L Normal 98-109 [place] Comment on above: Performed By: #### C BCA, 76895-8, PINR, 20133-6, CMP, 19992-7, 19222-6, THYR, 09307-0 #### [facility] ([id number]) [address] [place] [address] 48505 CO2 [Moles/Vol] 27 mmol/L Normal 22-32 [place] Comment on above: Performed By: #### C BCA, 56883-5, PINR, 90448-3, CMP, 93031-4, 87296-9, THYR, 70800-3 #### [facility] ([id number]) [address] [place] [address] 91264 Creatinine [Mass/Vol] 1.21 mg/dL High 0.40-1.00 [place] Comment on above: Result Comment: METH OD TRACEABLE TO IDMS STANDARD Performed By: #### C BCA, 27872-2, PINR, 22091-5, CMP, 01182-3, 15564-4, THYR, 52317-4 #### [facility] ([id number]) [address] [place] [address] 79998 GFR/1.73 sq M.predicted among non-blacks MDRD (S/P/Bld) [Vol rate/Area] 46 mL/min/{1.73_m2} Low >59 [place] Comment on above: Result Comment: Reported eGFR is based on the CKD-EPI 2020 equation that does not use a race coefficient. Performed By: #### C BCA, 68660-7, PINR, 08806-7, CMP, 44703-2, 16657-9, THYR, 78988-0 #### [facility] ([id number]) [address] [place] [address] 82418 Glucose [Mass/Vol] 120 mg/dL High 65-99 [facility] Comment on above: Performed By: #### C BCA, 82799-3, PINR, 97427-2, CMP, 43041-7, 08214-0, THYR, 30819-4 #### [facility] ([id number]) [address] [place] [address] 64844 Potassium [Moles/Vol] 4.0 mmol/L Normal 3.5-5.0 [place] Comment on above: Performed By: #### C BCA, 14168-8, PINR, 13649-6, CMP, 34267-7, 80877-5, THYR, 30473-1 #### [facility] ([id number]) [address] [place] [address] 83564 Protein [Mass/Vol] 6.8 g/dL Normal 6.0-8.0 [facility] Comment on above: Performed By: #### C BCA, 51591-1, PINR, 41565-0, CMP, 78121-7, 78122-4, THYR, 29711-2 #### [facility] ([id number]) [address] [place] [address] 83153 Sodium [Moles/Vol] 139 mmol/L Normal 134-146 [facility] Comment on above: Performed By: #### C BCA, 43859-4, PINR, 64439-0, CMP, 60368-8, 92003-0, THYR, 67782-4 #### [facility] ([id number]) [address] [place] [address] 85732 Urea nitrogen [Mass/Vol] 31 mg/dL High 5-27 [place] Comment on above: Performed By: #### C BCA, 66508-8, PINR, 91856-4, CMP, 92699-6, 42100-2, THYR, 42869-9 #### [facility] ([id number]) [address] [place] [address] 91098 Fibrin D-dimer DDU (PPP) [Ma ss/Vol]on 07-15-2023 D DIMER 220 ng/mL DDU Normal <255 [place] Comment on above: Result Comment: Results <255 ng/mL DDU: The presence of a VTE can safely be excluded with a negative D-Dimer result and Wells score. A negative result doesn't exclude the possibility of DIC. The test be repeated along with other diagnostic tests if the patient's symptoms persist or worsen. [email or web address] Performed By: #### C BCA, 35214-6, PINR, 40214-8, CMP, 28560-3, 21287-2, THYR, 16382-7 #### [facility] ([id number]) [address] [place] [address], [place] [address] MAGNESIUMon 07-15-2023 Magnesium [Mass/Vol] 1.8 mg/dL Normal 1.8-2.6 [place] Comment on above: Performed By: #### C BCA, 38581-2, PINR, 88500-0, CMP, 33293-1, 98107-7, THYR, 05695-2 #### [facility] ([id number]) [address] [place] [address] 08924 Natriuretic peptide B [Mass/ Vol]on 07-15-2023 Natriuretic peptide B (Bld) [Mass/Vol] 119 pg/mL High <100.0 [place] Comment on above: Performed By: #### C BCA, 46704-3, PINR, 56748-4, CMP, 45815-1, 15148-0, THYR, 95789-8 #### [facility] ([id number]) [address] [place] [address] [place] [address] PROTIME AND INRon 07-15-2023 INR Coag (PPP) [Relative time] 1.8 {INR} High 0.8-1.1 [place] Comment on above: Performed By: #### C BCA, 22128-7, PINR, 92322-7, CMP, 39508-3, 27271-2, THYR, 59326-2 #### [facility] ([id number]) [address] [place] [address], [place] [address] PT Coag (PPP) [Time] 20.8 s High 9.8-13.2 [place] Comment on above: Result Comment: NEW REFERENCE RANGE Performed By: #### C BCA, 32611-7, PINR, 53339-7, CMP, 65943-3, 24844-2, THYR, 92820-1 #### [facility] ([id number]) [address] [place] [address] 72837 THYROID PROFILEon 07-15-2023 Free T4 [Mass/Vol] 1.25 ng/dL Normal 0.61-1.60 [facility] Comment on above: Performed By: #### C BCA, 24581-8, PINR, 07716-1, CMP, 67123-5, 95903-6, THYR, 87658-2 #### [facility] ([id number]) [address] [place] [address] 06096 TSH 1.69 uIU/mL Normal 0.49-4.67 [place] Comment on above: Performed By: #### C BCA, 17153-4, PINR, 08577-2, CMP, 01994-5, 46160-0, THYR, 56123-0 #### [facility] ([id number]) [address] [place] [address] 94620 TROPONIN Ion 07-15-2023 Troponin I.cardiac [Mass/Vol] 0.01 ng/mL Normal 0.00-0.04 [place] Comment on above: Performed By: #### C BCA, 56988-7, PINR, 85177-1, CMP, 93278-4, 15376-1, THYR, 74196-2 #### [facility] ([id number]) [address] [place] [address] 43216 XR CHEST 2 VWSon 07-15-2023 XR CHEST 2 VWS XR CHEST 2 VWS History: chest pressure Exam/Technique: PA and lateral chest Comparison: None. Findings: There is no evidence of active pulmonary or pleural disease. Cardiac and mediastinal contours are within normal limits. Left-sided surgical clips. Granulomatous changes. IMPRESSION: No active pulmonary disease. Finalized by Adrian Ervin MD on 07/15/2023 1:14 PM Normal [place] aPTT Coag (PPP) [Time]on aPTT Coag (Bld) [Time] 36 s Normal 26-37 [place] Comment on above: Result Comment: NEW REFERENCE RANGE Performed By: #### C BCA, 88910-8, PINR, 76791-7, CMP, 32520-9, 16355-5, THYR, 54605-1 #### [facility] ([id number]) [address] [facility][NOTE [address]], [place] [address] AFB SMEARon 07-09-2023 ACID FAST SMEAR Negative Normal [facility] Comment on above: Result Comment: PERF ORMED AT [facility] Performed By: #### U MAC, UMIC #### Testing performed at [address] [address] BASIC METABOLIC PANELon Anion gap [Moles/Vol] 1 mmol/L MMOL/L [facility] Calcium [Mass/Vol] 8.7 mg/dL [facility] Chloride [Moles/Vol] 103 mmol/L [facility] Comment on above: Please note: Triglyc eride levels of 600mg/dL or higher may positively bias chloride results by approximately 2.1 mmol CO2 [Moles/Vol] 30 mmol/L [facility] Creatinine [Mass/Vol] 1.10 mg/dL [facility] GFR COMMENT Average GFR for 70+ years old = 75. [facility] Comment on above: Chronic Kidney disea se, GFR = <60. Kidney failure, GFR = <15. The GFR estimate is not adjusted for extreme body surface area or acute process, nor has it been validated for women or ethnic groups other than and . GFR/1.73 sq M.predicted among blacks MDRD (S/P/Bld) [Vol rate/Area] 62 mL/min/{1.73_m2} ml/min/1.73sq. m [facility] GFR/1.73 sq M.predicted among non-blacks MDRD (S/P/Bld) [Vol rate/Area] 51 mL/min/{1.73_m2} ml/min/1.73sq. m [facility] Glucose post fast [Mass/Vol] 141 mg/dL High [facility] Comment on above: NORMAL <100 mg/dL PREDIABETES 101-126 mg/dL DIABETES 126 mg/dL or higher Interpretation and review of laboratory results Abnormal [facility] Potassium [Moles/Vol] 3.8 mmol/L [facility] Sodium [Moles/Vol] 134 mmol/L Low [facility] Urea nitrogen [Mass/Vol] 30 mg/dL High [facility] BMP FASTINGon 2023 Anion gap [Moles/Vol] 1 mmol/L Normal [facility] Comment on above: Performed By: #### U MAC, UMIC #### Testing performed at [address] [address] Calcium [Mass/Vol] 8.7 mg/dL Normal 8.4-10.2 [facility] Comment on above: Performed By: #### U MAC, UMIC #### Testing performed at [address] [address] Chloride [Moles/Vol] 103 mmol/L Normal 98-107 [facility] Comment on above: Result Comment: Kristine bryant note: Triglyceride levels of 600mg/dL or higher may positively bias chloride results by approximately 2.1 mmol Performed By: #### U MAC, UMIC #### Testing performed at [address] [address] CO2 [Moles/Vol] 30 mmol/L Normal 22-30 [facility] Comment on above: Performed By: #### U MAC, UMIC #### Testing performed at [address] [address] Creatinine [Mass/Vol] 1.10 mg/dL Normal 0.70-1.20 [facility] Comment on above: Performed By: #### U MAC, UMIC #### Testing performed at [address] [address] EST. GFR, 62 ml/min/1.73sq.m [facility] Comment on above: Performed By: #### U MAC, UMIC #### Testing performed at [address] [address] EST. GFR,Non 51 ml/min/1.73sq.m [facility] Comment on above: Performed By: #### U MAC, UMIC #### Testing performed at [address] [address] GFR Information Average GFR for 70+ years old = 75. Normal [facility] Comment on above: Result Comment: [employer] juan diego Kidney disease, GFR = <60. Kidney failure, GFR = <15. The GFR estimate is not adjusted for extreme body surface area or acute process, nor has it been validated for women or ethnic groups other than and . Performed By: #### U MAC, UMIC #### Testing performed at [address] [address] Glucose [Mass/Vol] 141 mg/dL High 70-100 [facility] Comment on above: Result Comment: NORMAL <100 mg/dL PREDIABETES 101-126 mg/dL DIABETES 126 mg/dL or higher Performed By: #### U MAC, UMIC #### Testing performed at [address] [address] Potassium [Moles/Vol] 3.8 mmol/L Normal 3.5-5.1 [facility] Comment on above: Performed By: #### U MAC, UMIC #### Testing performed at [address] [address] Sodium [Moles/Vol] 134 mmol/L Low 137-145 [facility] Comment on above: Performed By: #### U MAC, UMIC #### Testing performed at [address] [address] Urea nitrogen [Mass/Vol] 30 mg/dL High 7-20 [facility] Comment on above: Performed By: #### U MAC, UMIC #### Testing performed at [address] [address] CBCon 2023 ABSOLUTE BAS 0.0 10*3/uL Normal 0.0-0.2 [facility] Comment on above: Performed By: #### U MAC, UMIC #### Testing performed at [address] [address] ABSOLUTE EOS 0.0 10*3/uL Normal 0.0-0.7 [facility] Comment on above: Performed By: #### U MAC, UMIC #### Testing performed at [address] [address] ABSOLUTE NEUTROPHIL COUNT 5.2 10*3/uL Normal 1.4-6.5 [facility] Comment on above: Performed By: #### U MAC, UMIC #### Testing performed at [address] [address] Basophils/100 WBC (Bld) 0.3 % Normal 0.0-2.0 [facility] Comment on above: Performed By: #### U MAC, UMIC #### Testing performed at [address] [place] [address] DTYPE AUTO DIFF Normal [facility] Comment on above: Performed By: #### U MAC, UMIC #### Testing performed at [address] [address] Eosinophils/100 WBC (Bld) 0.0 % Normal 0.0-11.0 [facility] Comment on above: Performed By: #### U MAC, UMIC #### Testing performed at [address] [address] Lymphocytes (Bld) [#/Vol] 1.1 10*3/uL Low 1.2-3.4 [facility] Comment on above: Performed By: #### U MAC, UMIC #### Testing performed at [address] [place] [address] Lymphocytes/100 WBC (Bld) 16.4 % Low 20.0-55.0 [facility] Comment on above: Performed By: #### U MAC, UMIC #### Testing performed at [address] [place] [address] Monocytes (Bld) [#/Vol] 0.3 10*3/uL Normal 0.0-0.7 [facility] Comment on above: Performed By: #### U MAC, UMIC #### Testing performed at [address] [place] [address] Monocytes/100 WBC (Bld) 4.3 % Normal 0.0-10.0 [facility] Comment on above: Performed By: #### U MAC, UMIC #### Testing performed at [address] [address] Neutrophils/100 WBC (Bld) 79.0 % High 37.0-75.0 [facility] Comment on above: Performed By: #### U MAC, UMIC #### Testing performed at [address] [address] Erythrocyte distribution width (RBC) [Ratio] 13.2 % Normal 11.5-14.5 [facility] Comment on above: Performed By: #### U MAC, UMIC #### Testing performed at [address] [address] Hematocrit (Bld) [Volume fraction] 33.6 % Low 36.0-48.0 [facility] Comment on above: Performed By: #### U MAC, UMIC #### Testing performed at [address] [address] Hemoglobin (Bld) [Mass/Vol] 12.0 g/dL Normal 12.0-16.0 [facility] Comment on above: Performed By: #### U MAC, UMIC #### Testing performed at [address] [address] MCH (RBC) [Entitic mass] 33.6 pg Normal 26.0-35.0 [facility] Comment on above: Performed By: #### U MAC, UMIC #### Testing performed at [address] [address] MCHC (RBC) [Mass/Vol] 35.6 g/dL Normal 27.0-37.0 [facility] Comment on above: Performed By: #### U MAC, UMIC #### Testing performed at [address] [address] MCV (RBC) [Entitic vol] 94.2 fL Normal 80.0-100.0 [facility] Comment on above: Performed By: #### U MAC, UMIC #### Testing performed at [address] [address] Platelet mean volume (Bld) [Entitic vol] 7.0 fL Low 7.4-11.0 [facility] Comment on above: Performed By: #### U MAC, UMIC #### Testing performed at [address] [address] Platelets (Bld) [#/Vol] 226 10*3/uL Normal 130-400 [facility] Comment on above: Performed By: #### U LIYAH DONOVAN #### Testing performed at [address] [address] RBC (Bld) [#/Vol] 3.57 10*6/uL Low 4.0-5.4 [facility] Comment on above: Performed By: #### U LIYAH DONOVAN #### Testing performed at [address] [address] WBC (Bld) [#/Vol] 6.6 10*3/uL Normal 3.6-11.0 [facility] Comment on above: Performed By: #### LIYAH OLVERA #### Testing performed at [address] [address] CBC, EDIF, PLATELETon 2023 ABSOLUTE BASOPHIL COUNT 0.0 10*3/uL 0.0 - 0.2 10*3/uL [facility] Basophils/100 WBC (Bld) 0.3 % 0.0 - 2.0 % [facility] Differential cell count method Nom (Bld) AUTO DIFF % [facility] Eosinophils (Bld) [#/Vol] 0.0 10*3/uL 0.0 - 0.7 10*3/uL [facility] Eosinophils/100 WBC (Bld) 0.0 % 0.0 - 11.0 % [facility] Erythrocyte distribution width (RBC) [Ratio] 13.2 % 11.5 - 14.5 % [facility] Hematocrit (Bld) [Volume fraction] 33.6 % Low 36.0 - 48.0 % [facility] Hemoglobin (Bld) [Mass/Vol] 12.0 g/dL [facility] Interpretation and review of laboratory results Abnormal [facility] Lymphocytes (Bld) [#/Vol] 1.1 10*3/uL Low 1.2 - 3.4 10*3/uL [facility] Lymphocytes/100 WBC (Bld) 16.4 % Low 20.0 - 55.0 % [facility] MCH (RBC) [Entitic mass] 33.6 pg 26.0 - 35.0 PG [facility] MCHC (RBC) [Mass/Vol] 35.6 g/dL [facility] MCV (RBC) [Entitic vol] 94.2 fL [facility] Monocytes (Bld) [#/Vol] 0.3 10*3/uL 0.0 - 0.7 10*3/uL [facility] Monocytes/100 WBC (Bld) 4.3 % 0.0 - 10.0 % [facility] Neutrophils (Bld) [#/Vol] 5.2 10*3/uL 1.4 - 6.5 10*3/uL [facility] Neutrophils/100 WBC (Bld) 79.0 % High 37.0 - 75.0 % [facility] Platelet mean volume (Bld) [Entitic vol] 7.0 fL Low [facility] Platelets (Bld) [#/Vol] 226 10*3/uL 130 - 400 10*3/uL [facility] RBC (Bld) [#/Vol] 3.57 10*6/uL Low 4.0 - 5.4 10*6/uL [facility] WBC (Bld) [#/Vol] 6.6 10*3/uL 3.6 - 11.0 10*3/uL [facility] ANAEROBIC CULTUREon 07-07-19 ANAEROBIC CULTURE SPECIMEN DESCRIPTION HIP RIGHT SPECIAL REQUESTS RIGHT HIP SUTURE GRAM SMEAR NO * Result Note: WBC'S SEEN * * Result Note: NO ORGANISMS SEEN * CULTURE NO GROWTH 5 DAYS * Result Note: Testing performed at [place] [address] * REPORT STATUS 07/12/2023 * Result Note: FINAL * Normal [facility] Comment on above: Performed By: #### U MAC, UMIC #### [place] [address] ANAEROBIC CULTURE SPECIMEN DESCRIPTION HIP RIGHT SPECIAL REQUESTS RIGHT HIP INCISIONAL FLUID GRAM SMEAR NO * Result Note: WBC'S SEEN * * Result Note: NO ORGANISMS SEEN * CULTURE NO GROWTH 5 DAYS * Result Note: Testing performed at [place] [address] * REPORT STATUS 07/12/2023 * Result Note: FINAL * Normal [facility] Comment on above: Performed By: #### A NER #### Testing performed at [address] [address] Testing performed at [facility] [address] [place] [address] BODY FLUID CELL COUNTon Appearance (Body fld) HAZY [facility] Color (Body fld) LIGHT YELLOW [facility] RBC Auto (Body fld) [#/Vol] 3376 /CMM [facility] Specimen source Nom (Body fld) SYNOVIAL FLUID [facility] WBC (Body fld) [#/Vol] 57 10*3/uL /CMM [facility] DIFFERENTIAL, FLUIDon 2023 BASOPHILS, FLUID 2 % [facility] Comment on above: NO REFERENCE RANGE E STABLISHED Eosinophils/100 WBC (Body fld) 4 % [facility] Comment on above: NO REFERENCE RANGE E STABLISHED Lymphocytes/100 WBC (Body fld) 22 % [facility] Comment on above: NO REFERENCE RANGE E STABLISHED MESOTHELIAL CELLS, FLUID 8 % [facility] Comment on above: NO REFERENCE RANGE E STABLISHED Monocytes+Macrophag es/100 WBC Manual cnt (Body fld) 48 % [facility] Comment on above: NO REFERENCE RANGE E STABLISHED Neutrophils/100 WBC (Body fld) 16 % [facility] Comment on above: NO REFERENCE RANGE E STABLISHED [facility] FLUID CELL COUNTon FLUID APPEARANCE HAZY Normal [facility] Comment on above: Performed By: #### U MAC, UMIC #### Testing performed at [address] [place] [address] FLUID COLOR LIGHT YELLOW Normal [facility] Comment on above: Performed By: #### U MAC, UMIC #### Testing performed at [address] [address] FLUID RBC'S 3376 /CMM [facility] Comment on above: Performed By: #### U MAC, UMIC #### Testing performed at [address] [address] FLUID TYPE SYNOVIAL FLUID Normal [facility] Comment on above: Performed By: #### U MAC, UMIC #### Testing performed at [address] [address] TOTAL NUCLEATED CELLS 57 /CMM Normal [facility] Comment on above: Performed By: #### U MAC, UMIC #### Testing performed at [address] [address] FLUID DIFFERENTIALon 024 FLUID BASOPHILS 2 % Normal [facility] Comment on above: Result Comment: NO R EFERENCE RANGE ESTABLISHED Performed By: #### F DIFF #### Testing performed at [address] [address] FLUID EOSINOPHILS 4 % Normal [facility] Comment on above: Result Comment: NO R EFERENCE RANGE ESTABLISHED Performed By: #### F DIFF #### Testing performed at [address] [address] FLUID LYMPHOCYTES 22 % Normal [facility] Comment on above: Result Comment: NO R EFERENCE RANGE ESTABLISHED Performed By: #### F DIFF #### Testing performed at [address] [address] FLUID MESOTHELIALS 8 % Normal [facility] Comment on above: Result Comment: NO R EFERENCE RANGE ESTABLISHED Performed By: #### F DIFF #### Testing performed at [address] [address] FLUID MONO/MACRO 48 % Normal [facility] [place] [facility] Comment on above: Result Comment: NO R EFERENCE RANGE ESTABLISHED Performed By: #### F DIFF #### Testing performed at [address] [address] FLUID NEUTROPHILS 16 % Normal [facility] Comment on above: Result Comment: NO R EFERENCE RANGE ESTABLISHED Performed By: #### F DIFF #### Testing performed at [address] [address] MRSA SCREENon 07-07-2023 MRSA DNA CHRISTOPHER+probe Ql (Unsp spec) Negative Normal NEGATIVE [facility] Comment on above: Performed By: #### M RSAST #### Testing performed at [address] [place] [address] STAPH AUREUS SCREEN Negative Normal NEGATIVE [facility] Comment on above: Result Comment: TEST ING PERFORMED BY PCR Performed By: #### M RSAST #### Testing performed at [address] [address] REPEAT ABO/RHon 07-07-2023 REPEAT ABO/RH Positive Normal [facility] Comment on above: Performed By: #### U MAC, UMIC #### Testing performed at [address] [address] REPEAT ABO/RH (D) TYPINGon 0 07-07-2023 ABO and Rh group Nom (Bld ) Positive [facility] S[facility]: MRSA ONLY, NARES (IS OLATION SCREEN)on 07-07-2023 MRSA isol Org specific cx Ql (Nose) Negative [facility] BY PCR Negative [facility]GATIVE [facility] Comment on above: TESTING PERFORMED BY PCR [facility] W[facility] CULTUREon 07-07-2023 WOUND CULTURE SPECIMEN DESCRIPTION HIP RIGHT SPECIAL REQUESTS RIGHT HIP INCISIONAL FLUID GRAM SMEAR NO * Result Note: WBC'S SEEN * * Result Note: NO ORGANISMS SEEN * CULTURE NO GROWTH 5 DAYS * Result Note: Testing performed at [place] [address] * REPORT STATUS 07/12/2023 * Result Note: FINAL * Normal [facility] Comment on above: Performed By: #### U MAC, UMIC #### Testing performed at [address] [address] XR PELVIS 1-2 VIEWSon 2023 XR PELVIS 1-2 VIEWS CLINICAL HISTORY: Post right hip surgery. PELVIS AP VIEW: COMPARISON: MRI OF 06/01/2023. FINDINGS/IMPRESSION: 1. 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 A few expected postoperative gas bubbles are noted lateral to the right femur greater trochanter. 2. Mild left hip osteoarthrosis is noted. 3. No fracture, malalignment, or other acute bony abnormality is seen. Normal [facility] XR Pelvis 2 Viewson 07-07-19 FINDINGS/IMPRESSION: 1. 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 A few expected postoperative gas bubbles are noted lateral to the right femur greater trochanter. 2. Mild left hip osteoarthrosis is noted. 3. No fracture, malalignment, or other acute bony abnormality is seen. RADIOLOGY CLINICAL HISTORY: Post right hip surgery. PELVIS AP VIEW: COMPARISON: MRI OF 06/01/2023. RADIOLOGY Parveen Mason MD - 07/07/2023 CLINICAL HISTORY: Post right hip surgery. PELVIS AP VIEW: COMPARISON: MRI OF 06/01/2023. IMPRESSION FINDINGS/IMPRESSION: 1. 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 A few expected postoperative gas bubbles are noted lateral to the right femur greater trochanter. 2. Mild left hip osteoarthrosis is noted. 3. No fracture, malalignment, or other acute bony abnormality is seen. [facility] Radiology Study observation (narrative) [facility] XR Pelvis 2 ViewsOrdered By: Parveen Mason on 07-07-2023 [facility] Work Phone: CBCon 06-25-2023 ABSOLUTE BAS 0.1 10*3/uL Normal 0.0-0.2 [facility] Comment on above: Performed By: #### U MAC, UMIC #### Testing performed at [address] [address] ABSOLUTE EOS 0.1 10*3/uL Normal 0.0-0.7 [facility] Comment on above: Performed By: #### U MAC, UMIC #### Testing performed at [address] [address] ABSOLUTE NEUTROPHIL COUNT 4.3 10*3/uL Normal 1.4-6.5 [facility] Comment on above: Performed By: #### U MAC, UMIC #### Testing performed at [address] [address] Basophils/100 WBC (Bld) 0.9 % Normal 0.0-2.0 [facility] Comment on above: Performed By: #### U MAC, UMIC #### Testing performed at [address] [address] DTYPE AUTO DIFF Normal [facility] Comment on above: Performed By: #### U MAC, UMIC #### Testing performed at [address] [address] Eosinophils/100 WBC (Bld) 1.2 % Normal 0.0-11.0 [facility] Comment on above: Performed By: #### U MAC, UMIC #### Testing performed at [address] [address] Lymphocytes (Bld) [#/Vol] 2.5 10*3/uL Normal 1.2-3.4 [facility] Comment on above: Performed By: #### U MAC, UMIC #### Testing performed at [address] [address] Lymphocytes/100 WBC (Bld) 32.3 % Normal 20.0-55.0 [facility] Comment on above: Performed By: #### U MAC, UMIC #### Testing performed at [address] [address] Monocytes (Bld) [#/Vol] 0.8 10*3/uL High 0.0-0.7 [facility] Comment on above: Performed By: #### U MAC, UMIC #### Testing performed at [address] [address] Monocytes/100 WBC (Bld) 10.1 % High 0.0-10.0 [facility] Comment on above: Performed By: #### U MAC, UMIC #### Testing performed at [address] [address] Neutrophils/100 WBC (Bld) 55.5 % Normal 37.0-75.0 [facility] Comment on above: Performed By: #### U MAC, UMIC #### Testing performed at [address] [address] Erythrocyte distribution width (RBC) [Ratio] 13.5 % Normal 11.5-14.5 [facility] Comment on above: Performed By: #### U MAC, UMIC #### Testing performed at [address] [address] Hematocrit (Bld) [Volume fraction] 43.9 % Normal 36.0-48.0 [facility] Comment on above: Performed By: #### U MAC, UMIC #### Testing performed at [address] [address] Hemoglobin (Bld) [Mass/Vol] 15.0 g/dL Normal 12.0-16.0 [facility] Comment on above: Performed By: #### U MAC, UMIC #### Testing performed at [address] [address] MCH (RBC) [Entitic mass] 32.6 pg Normal 26.0-35.0 [facility] Comment on above: Performed By: #### U MAC, UMIC #### Testing performed at [address] [address] MCHC (RBC) [Mass/Vol] 34.0 g/dL Normal 27.0-37.0 [facility] Comment on above: Performed By: #### U MAC, UMIC #### Testing performed at [address] [address] MCV (RBC) [Entitic vol] 95.8 fL Normal 80.0-100.0 [facility] Comment on above: Performed By: #### U MAC, UMIC #### Testing performed at [address] [address] Platelet mean volume (Bld) [Entitic vol] 7.3 fL Low 7.4-11.0 [facility] Comment on above: Performed By: #### U MAC, UMIC #### Testing performed at [address] [address] Platelets (Bld) [#/Vol] 286 10*3/uL Normal 130-400 [facility] Comment on above: Performed By: #### U MAC, UMIC #### Testing performed at [address] [address] RBC (Bld) [#/Vol] 4.59 10*6/uL Normal 4.0-5.4 [facility] Comment on above: Performed By: #### U MAC, UMIC #### Testing performed at [address] [address] WBC (Bld) [#/Vol] 7.8 10*3/uL Normal 3.6-11.0 [facility] Comment on above: Performed By: #### U MAC, UMIC #### Testing performed at [address] [address] CMP FASTINGon 06-25-2023 A:G RATIO 1.4 RATIO Normal [facility] Comment on above: Performed By: #### U MAC, UMIC #### Testing performed at [address] [address] ALBUMIN 4.4 G/dl Normal 3.5-5.0 [facility] Comment on above: Performed By: #### U MAC, UMIC #### Testing performed at [address] [place] [address] ALP [Catalytic activity/Vol] 54 U/L Normal 38-126 [facility] Comment on above: Performed By: #### U MAC, UMIC #### Testing performed at [address] [address] ALT [Catalytic activity/Vol] 22 U/L Normal <35 [facility] Comment on above: Performed By: #### U MAC, UMIC #### Testing performed at [address] [address] AST [Catalytic activity/Vol] 32 U/L Normal 14-36 [facility] Comment on above: Performed By: #### U MAC, UMIC #### Testing performed at [address] [address] Bilirubin [Mass/Vol] 0.5 mg/dL Normal 0.2-1.3 [facility] Comment on above: Performed By: #### U MAC, UMIC #### Testing performed at [address] [address] Calcium [Mass/Vol] 9.9 mg/dL Normal 8.4-10.2 [facility] Comment on above: Performed By: #### U MAC, UMIC #### Testing performed at [address] [address] Chloride [Moles/Vol] 100 mmol/L Normal 98-107 [facility] Comment on above: Result Comment: Kristine bryant note: Triglyceride levels of 600mg/dL or higher may positively bias chloride results by approximately 2.1 mmol Performed By: #### U MAC, UMIC #### Testing performed at [address] [place] [address] CO2 [Moles/Vol] 33 mmol/L High 22-30 [facility] Comment on above: Performed By: #### U MAC, UMIC #### Testing performed at [address] [address] Creatinine [Mass/Vol] 1.10 mg/dL Normal 0.70-1.20 [facility] Comment on above: Performed By: #### U MAC, UMIC #### Testing performed at [address] [address] EST. GFR, 62 ml/min/1.73sq.m [facility] Comment on above: Performed By: #### U MAC, UMIC #### Testing performed at [address] [address] EST. GFR,Non 51 ml/min/1.73sq.m [facility] Comment on above: Performed By: #### U MAC, UMIC #### Testing performed at [address] [address] GFR Information Average GFR for 70+ years old = 75. Normal [facility] Comment on above: Result Comment: [employer] juan diego Kidney disease, GFR = <60. Kidney failure, GFR = <15. The GFR estimate is not adjusted for extreme body surface area or acute process, nor has it been validated for women or ethnic groups other than and . Performed By: #### U MAC, UMIC #### Testing performed at [address] [address] Glucose [Mass/Vol] 114 mg/dL High 70-100 [facility] Comment on above: Result Comment: NORMAL <100 mg/dL PREDIABETES 101-126 mg/dL DIABETES 126 mg/dL or higher Performed By: #### U MAC, UMIC #### Testing performed at [address] [address] Potassium [Moles/Vol] 3.1 mmol/L Low 3.5-5.1 [facility] Comment on above: Performed By: #### U MAC, UMIC #### Testing performed at [address] [address] Protein [Mass/Vol] 7.6 g/dL Normal 6.3-8.2 [facility] Comment on above: Performed By: #### U MAC, UMIC #### Testing performed at [address] [address] Sodium [Moles/Vol] 139 mmol/L Normal 137-145 [facility] Comment on above: Performed By: #### U MAC, UMIC #### Testing performed at [address] [place] [address] Urea nitrogen [Mass/Vol] 31 mg/dL High 7-20 [facility] Comment on above: Performed By: #### U MAC, UMIC #### Testing performed at [address] [address] ESRon 06-25-2023 ESR (Bld) [Velocity] 7 mm/h Normal 0-30 [facility] Comment on above: Performed By: #### U MAC, UMIC #### Testing performed at [address] [address] HEMOGLOBIN A1Con 06-25-2023 Glucose [Mass/Vol] 131 mg/dL Normal [facility] Comment on above: Performed By: #### H A1CT #### Testing performed at [address] [address] HbA1c (Bld) [Mass fraction] 6.2 % High 0-6 [facility] Comment on above: Result Comment: NORMAL <5.7% PREDIABETES 5.7-6.4% DIABETES 6.5% OR HIGHER Performed By: #### H A1CT #### Testing performed at [address] [address] HS CRPon 06-25-2023 HS CRP 3.8 mg/L High 1.0-3.0 [facility] Comment on above: Performed By: #### U MAC, UMIC #### Testing performed at [address] [place] [address] MRSA SCREENon 06-25-2023 MRSA DNA CHRISTOPHER+probe Ql (Unsp spec) Negative Normal NEGATIVE [facility] Comment on above: Performed By: #### U MAC, UMIC #### Testing performed at [address] [place] [address] STAPH AUREUS SCREEN Negative Normal NEGATIVE [facility] Comment on above: Result Comment: TEST ING PERFORMED BY PCR Performed By: #### U MAC, UMIC #### Testing performed at [address] [place] [address] PROTIMEon 06-25-2023 INR Coag (PPP) [Relative time] 1.23 {INR} High 0.85-1.10 [facility] Comment on above: Result Comment: 2.0-3.0 THERAPEUTIC RANGE 2.5-3.5 MECHANICAL VALVE RANGE Performed By: #### U MAC, UMIC #### Testing performed at [address] [place] [address] PT Coag (PPP) [Time] 15.6 s High 11.8-14.4 [facility] Comment on above: Performed By: #### U MAC, UMIC #### Testing performed at [address] [address] TYPE AND SCREEN CROSSMATCH C ONVERTIBLEon 06-25-2023 TYPE AND SCREEN CROSSMATCH CONVERTIBLE UNITS ORDERED 2 WORKUP EXPIRES 07/10/2023,2359 ABO/RH(D) A POSITIVE ANTIBODY SCREEN NEGATIVE ARM BAND NUMBER [id number] Normal [facility] Comment on above: Performed By: #### U MAC, UMIC #### Testing performed at [address] [address] URINE MACROSCOPICon 06-25-19 24 Bilirubin Ql (U) Negative Normal NEGATIVE [facility] [place] [facility] Comment on above: Performed By: #### U MAC, UMIC #### Testing performed at [address] [address] Clarity (U) HAZY Abnormal CLEAR [facility] Comment on above: Performed By: #### U MAC, UMIC #### Testing performed at [address] [place] [address] Color (U) YELLOW Normal YELLOW [facility] Comment on above: Performed By: #### U MAC, UMIC #### Testing performed at [address] [place] [address] Glucose Ql (U) Negative Normal NEGATIVE [facility] Comment on above: Performed By: #### U MAC, UMIC #### Testing performed at [address] [address] pH (U) 5.5 [pH] Normal 5.0-7.0 [facility] Comment on above: Performed By: #### U MAC, UMIC #### Testing performed at [address] [address] URINE HEMOGLOBIN SMALL Abnormal NEGATIVE [facility] [place] Comment on above: Performed By: #### U MAC, UMIC #### Testing performed at [address] [address] URINE KETONE Negative Normal NEGATIVE [facility] Comment on above: Performed By: #### U MAC, UMIC #### Testing performed at [address] [address] URINE LEUKOTEST SMALL Abnormal NEGATIVE [facility] Comment on above: Performed By: #### U MAC, UMIC #### Testing performed at [address] [address] URINE NITRATES Negative Normal NEGATIVE [facility] Comment on above: Performed By: #### U MAC, UMIC #### Testing performed at [address] [address] URINE SPEC GRAVITY 1.015 Normal 1.010-1.025 [facility] Comment on above: Performed By: #### U MAC, UMIC #### Testing performed at [address] [address] URINE TOTAL PROTEIN Negative Normal NEGATIVE [facility] Comment on above: Performed By: #### U MAC, UMIC #### Testing performed at [address] [address] Urobilinogen Qn (U) 0.2 {Zenia'U}/dL Normal 0.2-1.0 [facility] Comment on above: Performed By: #### U MAC, UMIC #### Testing performed at [address] [address] URINE MICROSCOPICon 06-25-19 24 Bacteria LM.HPF (Urine sed) [#/Area] Negative Normal NEGATIVE [facility] Comment on above: Performed By: #### U MAC, UMIC #### Testing performed at [address] [address] CASTS NONE Normal NONE [facility] Comment on above: Performed By: #### U MAC, UMIC #### Testing performed at [address] [address] CRYSTAL NONE Normal NONE [facility] Comment on above: Performed By: #### U MAC, UMIC #### Testing performed at [address] [address] Epithelial cells LM Ql (Urine sed) 10 TO 20 Normal [facility] Comment on above: Performed By: #### U MAC, UMIC #### Testing performed at [address] [address] Mucus Ql (Urine sed) Negative Normal NEGATIVE [facility] Comment on above: Performed By: #### U MAC, UMIC #### Testing performed at [address] [address] URINE COMMENT POSSIBLY CONTAMINATED SPECIMEN, CULTURE MUST BE ORDERED SEPARATELY IF DEEMED NECESSARY. Normal [facility] Comment on above: Performed By: #### U MAC, UMIC #### Testing performed at [address] [address] URINE RBC'S 1 TO 5 Normal NEGATIVE [facility] Comment on above: Performed By: #### U MAC, UMIC #### Testing performed at [address] [address] URINE WBC'S 1 TO 5 Normal NEGATIVE [facility] Comment on above: Performed By: #### U MAC, UMIC #### Testing performed at [address] [address] Pre-Certification Formon Pre-Certification Form [id number] #1.00TIFF Normal [facility] POCT EKGOrdered By: Samantha Gurrola on 06-02-2023 [facility] MRI HIP RIGHT WITHOUT CONTRA [...] tendons as discussed in detail above. 3. Rohsz-vv-tkjvfoxz amount of fluid along the lateral aspect of the greater trochanter in the distribution of the greater trochanteric bursa may relate to postoperative seroma or bursitis. 4. No acute bony finding. Normal marrow signal. NOTE: Other chronic/incidental findings are discussed above. Normal [facility] Screenson 05-28-2023 Screens [id number] #1.00TIFF Normal [facility] Patient Educationon 05-27-19 Patient Education Obstetrics and [...] provider. Document Revised: 08/29/2021 Document Reviewed: 08/29/2021 [employer] Patient Education ? 2022 IDEA SPHERE. Rhea hTomas [facility] Urology Office/Clinic Noteon 05-27-2023 Urology Office/Clinic Note [...] a hematuria workup including a scope, at [facility]. Occasional visible blood w/UTI. UA today [...] discussed. Pt was referred for [facility] [place] [facility] [place] prior [place], has not started this, [...] the office notified. -Kegels. 4. 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 Elevated risk of periop complications 5. History of (more content not included)... Normal [facility] Comment on above: Result Comment: Elec tronically Signed By: Paul VILLEGAS, Alfreda Palacios\.br\Date and Time Signed: 05/27/23 19:56 EST\.br\Electronically Co-Signed By: Karlee Ramos\.br\Date and Time Co-Signed: 05/27/23 10:23 EST COBALT AND CHROMIUMon 2023 CHROMIUM,WB 1.1 Normal [facility] Comment on above: Result Comment: Refe rence range: <3.0 Unit: ng/mL PERFORMED BY [employer] COBALT,WB <1.0 Normal [facility] Comment on above: Result Comment: Refe rence range: <3.0 Unit: ng/mL (NOTE) Chromium and cobalt analysis performed by inductively coupled plasma/mass spectrometry (ICP/MS). Reference range is for patients with elmos-gs-szcve (MoM) orthopedic implants. The [place] [employer] Hip and Knee Sur[employer], the [place] [employer] Orthopaedic Surgeons, and The Hip Society, have published a consensus statement, Risk Stratification Algorithm for Management of Patients with Lxwqk-dv-Tbdtz Hip Arthroplasty. The algorithm is intended as an aid to orthopedic surgeons in the assessment and management of patients with Sbfeu-js-Yrqya bearings. The systematic risk stratification includes recommendations [...] developed and its performance characteristics determined by [employer]. It has not been cleared or approved by the Food and Drug Administration. COBALT AND CHROMIUM,WBon Chromium (Bld) [Mass/Vol] 1.1 [employer] Comment on above: Reference range: <3. 0 Unit: ng/mL PERFORMED BY [employer] [place] (Bld) [Mass/Vol] <1.0 [employer] Comment on above: Reference range: <3. 0 Unit: ng/mL (NOTE) Chromium and cobalt analysis performed by inductively coupled plasma/mass spectrometry (ICP/MS). Reference range is for patients with ccbpy-gi-yirdv (MoM) orthopedic implants. The [place] [employer] of Hip and Knee Surgeons, the [place] Academy of Orthopaedic Surgeons, and The Hip Society, have published a consensus statement, Risk Stratification Algorithm for Management of Patients with Urbri-cl-Mmvge Hip Arthroplasty. The algorithm is intended as an aid to orthopedic surgeons in the assessment and management of patients with Vqqpo-um-Fcahh bearings. The systematic risk stratification includes recommendations [...] developed and its performance characteristics determined by [employer]. It has not been cleared or approved by the Food and Drug Administration. [facility] C REACTIVE PROTEINon 024 CRP [Mass/Vol] 48.4 mg/L High 0 - 10 MG/L [facility] Interpretation and review of laboratory results Abnormal [facility] CRP [Mass/Vol] 48.4 mg/L High 0-10 [facility] Comment on above: Performed By: #### C REACT, ESR #### Testing performed at [address] [address] ESRon 05-14-2023 ESR (Bld) [Velocity] 31 mm/h High 0-30 [facility] Comment on above: Performed By: #### C REACT, ESR #### Testing performed at [address] [address] SEDIMENTATION RATE, AUTOMATE Don 05-14-2023 ESR (Bld) [Velocity] 31 mm/h High [facility] Interpretation and review of laboratory results Abnormal [facility] Ambulatory Visit Summaryon 1 Ambulatory Visit Summary BETTIE BURNS :1945 Visit Date:02/11/2023 Ambulatory Visit Instructions Your Diagnosis Frequent UTI Microscopic hematuria Mixed incontinence Anticoagulated History of breast cancer Former smoker Tests Performed Urnls Dip Stick Auto w/o Microscopy POC [address] Your Care Team Attending Physician - Paul [...] VILLEGAS, Alfreda Palacios Where: [facility] Lab Reportson 02-11-2023 Lab Reports [id number] 1#1.00TIFF [facility] Patient Educationon 02-12-20 Patient Education Obstetrics [...] provider. Document Revised: 08/29/2021 Document Reviewed: 08/29/2021 [employer] Patient Education ? 2022 IDEA SPHERE. Normal [facility] Physician Referralon 023 Physician Referral [id number] #1.00TIFF Normal [facility] Urinalysis - DIPSTICKon 10-03 Appearance (U) cloudy [employer] Other Bilirubin Ql (U) Raidarrr ast Re.nooble Other Color (U) yellow [employer] Other Glucose Ql (U) Negative [employer] Other Hemoglobin Ql (U) Find Invest Grow (FIG) C oast Re.nooble Other Ketones Ql (U) Negative [employer] Other Leukocyte esterase Test strip Ql (U) moderate [employer] Other Nitrite Ql (U) Positive [employer] Other pH (U) 5 [pH] [employer] Other Protein Ql (U) Negative [employer] Other Specific gravity (U) [Rel density] 1.010 [employer] Other Urobilinogen (U) [Mass/Vol] off chart [employer] Other Urinalysis - DIPSTICK [employer] Other Urine Cultureon 10-27-2022 Bacteria identified Cx Nom (U) ORGANISM: Escherichia coli (O:ESCCOL) Matthews Count >100,000 Aerobic AUBREY Charge (NMIC56) ----- [...] RESISTANT TO ALL B-LACTAM DRUGS. PERFORMED BY: [place] [address] [place] [address] PATHOLOGIST MORTGAGE PROCESSING MANAGER JOSE GUADALUPE FERGUSON M.D. Normal [facility] Comment on above: Performed By: #### C UU #### [facility] [address] Urinalysis - DIPSTICKon 06-05 Appearance (U) cloudy [employer] Other Bilirubin Ql (U) Negative [employer] Other Color (U) pale yellow [employer] Other Glucose Ql (U) Negative [employer] Other Hemoglobin Ql (U) non hem-trace [facility] [employer] Other Ketones Ql (U) trace [employer] Other Leukocyte esterase Test strip Ql (U) moderate [employer] Other Nitrite Ql (U) Negative [employer] Other pH (U) 5 [pH] [employer] Other Protein Ql (U) trace [employer] Other Specific gravity (U) [Rel density] 1.005 [employer] Other Urobilinogen (U) [Mass/Vol] normal [employer] Other Urinalysis - DIPSTICK [employer] Other CULTURE URINEon 06-11-2022 CULTURE URINE Isolate [...] F Trimethoprim/Sulfame thoxazole <=[address] [facility] Comment on above: Performed By: #### U RCX #### [facility] [address] [address] [address] Florencio Narayanan CARDIAC AMBER ADMITon 023 CK [Catalytic activity/Vol] 44 U/L Normal 26-192 [facility] Comment on above: Performed By: #### C MP, LIPA, CMADM #### [facility] [address] [address] [address] Florencio Narayanan CK.MB [Mass/Vol] ng/mL Normal <=3.60 [facility] Comment on above: Performed By: #### C MP, LIPA, CMADM #### [facility] [address] [address] [address] Florencio Narayanan HSTROP 14.6 pg/mL Normal 4.0-51.3 [facility] Comment on above: Result Comment: CUT- OFF POINTS HAVE BEEN ESTABLISHED BASED ON THE FOURTH UNIVERSAL DEFINITIONS OF MYOCARDIAL INFARCTION. THE UPPER REFERENCE LIMIT (URL) OF TROPONIN, DEFINED THE 99TH PERCENTILE OF cTnI DISTRIBUTION IN A REFERENCE POPULATION, HAS BEEN CONFIRMED THE DECISION THRESHOLD FOR WI DIAGNOSIS. Performed By: #### C MP, LIPA, CMADM #### [facility] [address] [place] [address] Dr. Florencio Narayanan UMER 109 ng/mL Critically high 9-82 [facility] Comment on above: Performed By: #### C MP, LIPA, CMADM #### [facility] [address] [address] [address] Florencio Narayanan CBC AUTO DIFFon 06-09-2022 BASO # 0.1 103/ul Normal 0.0-0.1 [facility] Comment on above: Performed By: #### C BC #### [facility] [address] [place] [address] Dr. Florencio Narayanan Basophils/100 WBC (Bld) 0.4 % Normal 0.2-2.0 [facility] Comment on above: Performed By: #### C BC #### [facility] [address] [place] [address] Dr. Florencio Narayanan EO # 0.0 103/ul Normal 0.0-0.7 [facility] Comment on above: Performed By: #### C BC #### [facility] [address] [place] [address] Dr. Florencio Narayanan Eosinophils/100 WBC (Bld) 0.2 % Critically low 0.9-7.0 [facility] Comment on above: Performed By: #### C BC #### [facility] [address] [place] [address] Dr. Florencio Narayanan Erythrocyte distribution width (RBC) [Ratio] 12.3 % Normal 11.0-15.0 [facility] Comment on above: Performed By: #### C BC #### [facility] [address] [place] [address] Dr. Florencio Narayanan Hematocrit (Bld) [Volume fraction] 38.4 % Normal 36.0-48.0 [facility] Comment on above: Performed By: #### C BC #### [facility] [address] [place] [address] Dr. Florencio Narayanan Hemoglobin (Bld) [Mass/Vol] 12.7 g/dL Normal 12.0-16.0 [facility] Comment on above: Performed By: #### C BC #### [facility] [address] [place] [address] Dr. Florencio Narayanan IG # 0.06 10e3/ul Critically high 0.00-0.03 [facility] Comment on above: Performed By: #### C BC #### [facility] [address] [place] [address] Dr. Florencio Narayanan IG % 0.5 % Normal 0.0-0.5 [facility] Comment on above: Performed By: #### C BC #### [facility] [address] [place] [address] Dr. Florencio Narayanan LYMPH # 1.0 103/ul Critically low 1.2-3.8 [facility] Comment on above: Performed By: #### C BC #### [facility] [address] [place] [address] Dr. Florencio Narayanan Lymphocytes/100 WBC (Bld) 8.4 % Critically low 20.5-60.0 [facility] Comment on above: Performed By: #### C BC #### [facility] [address] [place] [address] Dr. Florencio Narayanan MANUAL DIFF REQ NO Normal [facility] Comment on above: Performed By: #### C BC #### [facility] [address] [place] [address] Dr. Florencio Narayanan MCH (RBC) [Entitic mass] 32.4 pg Normal 26.7-34.0 [facility] Comment on above: Performed By: #### C BC #### [facility] [address] [place] [address] Dr. Florencio Narayanan MCHC (RBC) [Mass/Vol] 33.1 g/dL Normal 29.9-35.2 [facility] Comment on above: Performed By: #### C BC #### [facility] [address] [place] [address] Dr. Florencio Narayanan MCV (RBC) [Entitic vol] 98.0 fL Normal 81.0-99.0 [facility] Comment on above: Performed By: #### C BC #### [facility] [address] [place] [address] Dr. Florencio Narayanan MONO # 1.6 103/ul Critically high 0.3-0.8 [facility] Comment on above: Performed By: #### C BC #### [facility] [address] [place] [address] Dr. Florencio Narayanan Monocytes/100 WBC (Bld) 13.1 % Critically high 1.7-12.0 [facility] Comment on above: Performed By: #### C BC #### [facility] [address] [place] [address] Dr. Florencio Narayanan NEUT # 9.5 103/ul Critically high 1.4-6.5 [facility] Comment on above: Performed By: #### C BC #### [facility] [address] [place] [address] Dr. Florencio Narayanan Neutrophils/100 WBC (Bld) 77.4 % Critically high 43.0-75.0 [facility] Comment on above: Performed By: #### C BC #### [facility] [address] [address] [address] Florencio Narayanan Platelet mean volume (Bld) [Entitic vol] 9.4 fL Critically low 9.5-13.5 [facility] Comment on above: Performed By: #### C BC #### [facility] [address] [address] [address] Florencio Narayanan PLT 140 103/ul Critically low 150-450 [facility] Comment on above: Performed By: #### C BC #### [facility] [address] [address] [address] Florencio Narayanan RBC 3.92 106/ul Critically low 4.20-5.40 [facility] Comment on above: Performed By: #### C BC #### [facility] [address] [address] [address] Florencio Narayanan WBC 12.2 103/ul Critically high 4.0-11.0 [facility] Comment on above: Performed By: #### C BC #### [facility] [address] [address] [address] STROKE HEAD WOon [...] LUANA VILLAFANA Date: 2022-06-09 12:24 Normal [facility] Covid-19 PCR ([facility])on SARS-CoV-2 (COVID-19) RNA CHRISTOPHER+probe Ql (Unsp spec) Not detected Normal NOT DETECTED [facility] Comment on above: Result Comment: When [...] for this test is supported by the [place] of Health and Human Service's declaration that [...] used). Performed By: #### C VDTB #### [facility] [address] [place] [address] Dr. Florencio Narayanan ER URINE PROFILEon 3 Bilirubin Ql (U) Negative Normal NEGATIVE [facility] Comment on above: Performed By: #### Malini PIZANO UMICRO #### [facility] [address] [place] [address] Dr. Florencio Narayanan Clarity (U) CLEAR Normal CLEAR [facility] Comment on above: Performed By: #### Malini PIZANO UMICRO #### [facility] [address] [place] [address] Dr. Florencio Narayanan Color (U) LT. YELLOW Normal YELLOW [facility] Comment on above: Performed By: #### E HARINDER UMICRO #### [facility] [address] [place] [address] Dr. Florecnio CONLEY A micrscopic examination will be performed if indicated. Normal [facility] Comment on above: Performed By: #### E DANGELOR UMICRO #### [facility] [address] [place] [address] Dr. Florencio Narayanan Glucose Ql (U) Negative Normal NEGATIVE [facility] Comment on above: Performed By: #### Malini PIZANO UMICRO #### [facility] [address] [place] [address] Dr. Florencio Narayanan Hemoglobin Ql (U) LARGE Abnormal NEGATIVE [facility] Comment on above: Performed By: #### Malini PIZANO UMICRO #### [facility] [address] [place] [address] Dr. Florencio Narayanan Ketones Ql (U) TRACE Abnormal NEGATIVE [facility] Comment on above: Performed By: #### Malini PIZANO UMICRO #### [facility] [address] [place] [address] Dr. Florencio Narayanan LEUKOCYTES LARGE Abnormal NEGATIVE [facility] Comment on above: Performed By: #### Malini PIZANO UMICRO #### [facility] [address] [place] [address] Dr. Florencio Narayanan Nitrite Ql (U) Positive Abnormal NEGATIVE [facility] Comment on above: Performed By: #### Malini PIZANO ICRO #### [facility] [address] [place] [address] Dr. Florencio Narayanan pH (U) 5.5 [pH] Normal 5-9 [facility] Comment on above: Performed By: #### Malini PIZANO ICRO #### [facility] [address] [place] [address] Dr. Florencio Narayanan SPEC GRAVITY 1.010 Normal 1.005-<=1.025 [facility] Comment on above: Performed By: #### MARIVEL LEICRO #### [facility] [address] [place] [address] Dr. Florencio Narayanan UA PROTEIN TRACE Normal NEGATIVE/ TRACE [facility] Comment on above: Performed By: #### Malini PIZANO UMICRO #### [facility] [address] [place] [address] Dr. Florencio Narayanan UR MICRO IND INDICATED Normal [facility] Comment on above: Performed By: #### Malini PIZANO UMICRO #### [facility] [address] [place] [address] Dr. Florencio Narayanan Urobilinogen Qn (U) 0.2 {Zenia'U}/dL Normal 0.2 - 1. 0 [facility] Comment on above: Performed By: #### E ADIEL PIZANO #### [facility] [address] [place] [address] Dr. Florencio Narayanan LIPASEon 06-09-2022 Lipase [Catalytic activity/Vol] 68.0 U/L Critically low 73.0-393.0 [facility] Comment on above: Performed By: #### C MP, LIPA, CMADM #### [facility] [address] [place] [address] Dr. Florencio Narayanan PROF 14(COMP METB)on 023 Albumin [Mass/Vol] 2.5 g/dL Critically low 3.4-5.0 Th [facility] Comment on above: Performed By: #### C MP, LIPA, CMADM #### [facility] [address] [place] [address] Dr. Florencio Narayanan Albumin/Globulin [Mass ratio] 0.6 {ratio} Normal [facility] Comment on above: Performed By: #### C MP, LIPA, CMADM #### [facility] [address] [place] [address] Dr. Florencio Narayanan ALP [Catalytic activity/Vol] 150 U/L Critically high 46-116 [facility] Comment on above: Performed By: #### C MP, LIPA, CMADM #### [facility] [address] [place] [address] Dr. Florencio Narayanan ALT [Catalytic activity/Vol] 27 U/L Normal 14-59 [facility] Comment on above: Performed By: #### C MP, LIPA, CMADM #### [facility] [address] [place] [address] Dr. Florencio Narayanan Anion gap [Moles/Vol] 12.8 mmol/L Normal [facility] Comment on above: Performed By: #### C MP, LIPA, CMADM #### [facility] [address] [place] [address] Dr. Florencio Narayanan AST [Catalytic activity/Vol] 31 U/L Normal 15-37 [facility] Comment on above: Performed By: #### C MAURICIO LOZANOA, CMADM #### [facility] [address] [place] [address] Dr. Florencio Narayanan Bilirubin [Mass/Vol] 1.1 mg/dL Critically high 0.2-1.0 [facility] Comment on above: Performed By: #### C BLAKE LIPA, CMADM #### [facility] [address] [place] [address] Dr. Florencio Narayanan Calcium [Mass/Vol] 9.1 mg/dL Normal 8.5-10.1 [facility] Comment on above: Performed By: #### C MAURICIO LOZANOA, CMADM #### [facility] [address] [place] [address] Dr. Florencio Narayanan Chloride [Moles/Vol] 95 mmol/L Critically low 98-107 [facility] Comment on above: Performed By: #### C BLAKE LIPA, CMADM #### [facility] [address] [place] [address] Dr. Florencio Narayanan CO2 [Moles/Vol] 29.4 mmol/L Normal 21.0-32.0 [facility] Comment on above: Performed By: #### C BLAKE LIPA, CMADM #### [facility] [address] [place] [address] Dr. Florencio Narayanan Creatinine [Mass/Vol] 1.34 mg/dL Critically high 0.55-1.02 [facility] Comment on above: Performed By: #### C BLAKE LIPA, CMADM #### [facility] [address] [place] [address] Dr. Florencio Narayanan EGFR-AF CITIZEN OF [place] 47 mL/min/1.73m2 Critically low >=60 [facility] Comment on above: Performed By: #### C BLAKE LIPA, CMADM #### [facility] [address] [place] [address] Dr. Florencio Narayanan EGFR-NON AF CITIZEN OF [place] 39 mL/min/1.73m2 Critically low >=60 [facility] Comment on above: Performed By: #### C MP, LIPA, CMADM #### [facility] [address] [address] [address] Florencio Narayanan Globulin (S) [Mass/Vol] 4.3 g/dL Normal [facility] Comment on above: Performed By: #### C MP, LIPA, CMADM #### [facility] [address] [address] [address] Florencio Narayanan Glucose [Mass/Vol] 118 mg/dL Critically high 74-106 T [facility] Comment on above: Performed By: #### C MP, LIPA, CMADM #### [facility] [address] [address] [address] Florencio Narayanan Potassium [Moles/Vol] 3.2 mmol/L Critically low 3.5-5.1 [facility] Comment on above: Performed By: #### C MP, LIPA, CMADM #### [facility] [address] [address] [address] Florencio Narayanan Protein [Mass/Vol] 6.8 g/dL Normal 6.4-8.2 [facility] Comment on above: Performed By: #### C MP, LIPA, CMADM #### [facility] [address] [place] [address] Dr. Florencio Narayanan Sodium [Moles/Vol] 134 mmol/L Critically low 136-145 Th [facility] Comment on above: Performed By: #### C MP, LIPA, CMADM #### [facility] [address] [address] [address] Florencio Narayanan Urea nitrogen [Mass/Vol] 29.0 mg/dL Critically high 7.0-18.0 [facility] Comment on above: Performed By: #### C MP, LIPA, CMADM #### [facility] [address] [place] [address] Dr. Florencio Narayanan Urea nitrogen/Creatinine [Mass ratio] 21.6 mg/mg Normal [facility] Comment on above: Performed By: #### C MP, LIPA, CMADM #### [facility] [address] [place] [address] Dr. Florencio Narayanan URINE MICROSCOPIC ONLYon BACTERIA SMALL Abnormal NONE SEEN The [facility] Comment on above: Performed By: #### Malini PIZANO UMICRO #### [facility] [address] [place] [address] Dr. Florencio Narayanan Bacteria identified Cx Nom (U) INDICATED Normal [facility] Comment on above: Performed By: #### Malini PIZANO UMICRO #### [facility] [address] [place] [address] Dr. Florencio Narayanan CAST NONE SEEN Normal NONE SEEN The [facility] Comment on above: Performed By: #### Malini PIZANO UMICRO #### [facility] [address] [place] [address] Dr. Florencio Narayanan Crystals LM Nom (Urine sed) NONE SEEN Normal NONE SEEN The [facility] Comment on above: Performed By: #### Malini PIZANO UMICRO #### [facility] [address] [place] [address] Dr. Florencio Narayanan Epithelial cells LM Ql (Urine sed) FEW Abnormal NONE SEEN /RARE [facility] Comment on above: Performed By: #### Malini PIZANO UMICRO #### [facility] [address] [place] [address] Dr. Florencio Narayanan MUCOUS NONE SEEN Normal NONE SEEN The [facility] Comment on above: Performed By: #### Malini PIZANO UMICRO #### [facility] [address] [place] [address] Dr. Florencio Narayanan RBC 2-5 Abnormal 0-2 [facility] Comment on above: Performed By: #### Malini PIZANO UMICRO #### [facility] [address] [place] [address] Dr. Florencio Narayanan WBC 10-20 Abnormal NONE SEEN The [facility] Comment on above: Performed By: #### Malini PIZANO UMICRO #### [facility] [address] [place] [address] Dr. Florencio Narayanan XR CHEST 2 Von [...] by: JOAQUÍN ATKINS Date: 2022-06-09 12:[address] [facility] CULTURE URINEon 04-16-2022 CULTURE URINE Isolate [...] Trimethoprim/Sulfame thoxazole >=320 R F Normal [facility] Comment on above: Performed By: #### C #### [facility] [address] [place] [address] Dr. Florencio Narayanan MRI Hip w/o Righton 09-12-19 MRI Hip [...] by Ramon Ambrocio on 09/11/2021 1545 Normal [facility] Configuration Management Analyst Consult Reporton 03-14-2020 Consult Report [facility] CONSULTATION BETTIE BURNS [address]ET [id number] OBSV ANABEL WATKINS MD [id number] REFERRING PHYSICIAN: CONSULTING PHYSICIAN: Renetta Almanzar MD DATE OF CONSULTATION: 03/11/2020 REASON: A near syncopal event in a 74-year-old female, with a history of atrial fibrillation, previous cardiac ablation, who was the time of evaluation noted to have a positive test for COVID. HISTORY OF PRESENT ILLNESS: Mrs. Burns is a very pleasant, alert and oriented -ldmi-ann female who was brought into the emergency [...] including quarantine. Many thanks. MD KALYAN GONZALEZ/Isidro /[id number] Normal [facility] BASICMETAon 03-11-2020 GFR AA >60 [facility] Comment on above: Result Comment: Afri can Gabonese GFR Calc Medical judgement is necessary to [...] for drug dosing. Performed By: #### 1 79929, 816043, 298792 ####[facility] [id number] [place] [address] Medical Director: Fahad Cast MD GFR/1.73 sq M predicted among non-blacks MDRD (S/P/Bld) [Vol rate/Area] 56 mL/min/1.73m? Normal [facility] Comment on above: Result Comment: Non [...] for drug dosing. Performed By: #### 1 50739, 940848, 417900 ####[facility] [address]zrg[address]56 [place] [address] Medical Director: Fahad Cast MD Osmolality [Osmolality] 291 mOsm/kg Normal 275-295 [facility] Comment on above: Performed By: #### 1 95968, 757435, 569715 ####[facility] [address] [place] [address] Medical Director: Fahad Cast MD Urea nitrogen/Creatinine [Mass ratio] 24.5 mg/mg Normal [facility] Comment on above: Performed By: #### 1 37666, 612460, 058986 ####[facility] [address] [place] [address] Medical Director: Fahad Cast MD Calcium [Mass/Vol] 9.3 mg/dL Normal 8.5-10.5 [facility] Comment on above: Performed By: #### 1 51539, 315959, 815073 ####[facility] [address] [place] [address] Medical Director: Fahad Cast MD Chloride [Moles/Vol] 108 mmol/L Normal 100-109 [facility] Comment on above: Performed By: #### 1 95863, 287714, 692901 ####[facility] [address] [phone] Medical Director: Fahad Cast MD CO2, venous 28.9 mmol/L Normal 21.0-32.0 [facility] Comment on above: Performed By: #### 1 82921, 396334, 847654 ####[facility] [id number] [place] [address] [facility] Director: Fahad Cast MD Creatinine [Mass/Vol] 1.0 mg/dL Normal 0.6-1.0 [facility] Comment on above: Performed By: #### 1 19787, 771953, 441117 ####[facility] [address]ks[address] [place] [address] Medical Director: Fahad Cast MD Glucose [Mass/Vol] 98 mg/dL Normal 72-100 [facility] Comment on above: Result Comment: Sharon puncture should occur prior to sulfasalazine administration due to the potential for falsely depressed results. Venipuncture should occur prior to sulfapyridine administration due to the potential falsely elevated results. Baseline assay values before administration of sulfasalazine and sulfapyridine therapy would not be affected. Performed By: #### 1 13925, 948662, 089866 ####[facility] [id number] [place], [place] [phone]) [phone] Director: Fahad Cast MD Potassium [Moles/Vol] 4.2 mmol/L Normal 3.5-5.1 [facility] Comment on above: Performed By: #### 1 86320, 901182, 381016 ####[facility] [address] [place] [address] Medical Director: Fahad Cast MD Sodium [Moles/Vol] 144 mmol/L Normal 135-145 [facility] Comment on above: Performed By: #### 1 51409, 867234, 530193 ####[facility] [address] [place] [address] Medical Director: Fahad Cast MD Urea nitrogen [Mass/Vol] 24 mg/dL High 10-20 [facility] Comment on above: Performed By: #### 1 37503, 775041, 517398 ####[facility] [address]jqz48[address] [place], [place] [id number]) [phone] Director: Fahad Cast MD [facility] Erythrocyte distribution width (RBC) [Ratio] 14.4 % Normal 11.5-14.5 [facility] Comment on above: Performed By: #### 1 23220, 949521, 438993 #### [facility] Services [address] [place] [address] Tuber Machine Operator Helper: Fahad Cast MD Hematocrit (Bld) [Volume fraction] 33.9 % Low 36.0-46.0 [facility] Comment on above: Performed By: #### 1 05281, 601511, 651234 #### [facility] [address] [place] [address] Tuber Machine Operator Helper: Fahad Cast MD Hemoglobin (Bld) [Mass/Vol] 11.2 g/dL Low 12.0-16.0 [facility] Comment on above: Performed By: #### 1 12862, 422046, 620249 #### [facility] [address] [place] [address] Tuber Machine Operator Helper: Fahad Cast MD MCH (RBC) [Entitic mass] 29.5 pg Normal 27.0-34.0 [facility] Comment on above: Performed By: #### 1 48887, 890465, 110631 #### [facility] [address] [place] [address] Tuber Machine Operator Helper: Fahad Cast MD MCHC (RBC) [Mass/Vol] 33.0 g/dL Normal 32.0-37.0 [facility] Comment on above: Performed By: #### 1 84893, 452702, 159323 #### [facility] [address] [place], [place] [address] Tuber Machine Operator Helper: Fahad Cast MD MCV (RBC) [Entitic vol] 89.5 fL Normal 80.0-100.0 [facility] Comment on above: Performed By: #### 1 54813, 777245, 584737 #### [facility] [address] [place] [address] Tuber Machine Operator Helper: Fahad Cast MD Platelet mean volume (Bld) [Entitic vol] 6.8 fL Low 7.4-10.4 [facility] Comment on above: Performed By: #### 1 78468, 389997, 575601 #### [facility] [address] [place] [address] Tuber Machine Operator Helper: Fahad Cast MD Platelets (Bld) [#/Vol] 232 x1000 Normal 150-450 [facility] Comment on above: Performed By: #### 1 66566, 648189, 998726 #### [facility] [address] [place] [address] Tuber Machine Operator Helper: Fahad Cast MD RBC (Bld) [#/Vol] 3.79 x10 Low 4.20-5.40 [facility] Comment on above: Result Comment: Note : RBC morphology is normal unless otherwise stated. Evaluation performed only if differential is requested. Performed By: #### 1 85437, 073774, 712975 #### [facility] [address] [place] [address] Tuber Machine Operator Helper: Fahad Cast MD WBC (Bld) [#/Vol] 5.8 10*3/uL Normal [facility] Comment on above: Performed By: #### 1 35621, 855199, 889147 #### [facility] [address] [place] [address] Tuber Machine Operator Helper: Fahad Cast MD WBC (Bld) [#/Vol] 5.8 x10 Normal 4.5-11.0 [facility] Comment on above: Performed By: #### 1 66983, 590218, 489522 #### [facility] [address] [place] [address] Tuber Machine Operator Helper: Fahad Cast MD D Dimer HSon 03-11-2020 D Dimer HS 821 ng/mL FEU High <=499 [facility] Comment on above: Result Comment: Excl usion of PE and DVT The D Dimer HS assay is reported in ng/ml Fibrinogen Equivalent Units (FEU). Per human resources project manager?s instructions for use, a value less than 500ng/ml (FEU) may help to exclude DVT and /or PE in outpatients when the assay is used with a clinical pretest probability assessment. D-Dimer used for DIC Screens Assay results should be used with other information, including the clinical context in forming a diagnosis. Performed By: #### C [id number] ####[facility] [address] [place] [address] Medical Director: Fahad Cast MD LDHon 03-11-2020 LDH 198 unit/L Normal 84-246 [facility] Comment on above: Performed By: #### 1 84726, 991610, 383362 #### [facility] [address] [phone] Tuber Machine Operator Helper: Fahad Cast MD Progress Note-Physicianon Progress Note-Physician [...] medications. 6) DVT ppx: On Eliquis Normal [facility] Utilization Review Noteon Utilization Review Note ID Consult pending DISCHARGE WRITTEN AND PLANNED. Normal [facility] AUTO DIFFon 03-10-2020 Basophils (Bld) [#/Vol] 0.05 x1000 Normal 0.00-0.20 [facility] Comment on above: Performed By: #### 1 42257, 474885, 0996334 ####[facility] [address] [phone] Medical Director: Fahad Cast MD Basos % 0.6 % Normal [facility] Comment on above: Performed By: #### 1 23425, 800096, 2810596 ####[facility] [address]per[address] [place] [address] Medical Director: Fahad Cast MD Eos Count 0.15 x1000 Normal 0.00-0.50 [facility] Comment on above: Performed By: #### 1 75894, 183005, 3436396 ####[facility] [address]wtzk[address] [place] [address] Medical Director: Fahad Cast MD Eosinophils/100 WBC (Bld) 1.8 % Normal [facility] Comment on above: Performed By: #### 1 47815, 485953, 8183193 ####[facility] [address]ax[address] [place] [address] Medical Director: Fahad Cast MD Lymphocytes (Bld) [#/Vol] 1.05 x1000 Low 1.20-4.80 [facility] Comment on above: Performed By: #### 1 38767, 097533, 3772754 ####[facility] [address]qmcgtvv[address]18 [place] [address] Medical Director: Fahad Cast MD Lymphocytes/100 WBC (Bld) 12.7 % Normal [facility] Comment on above: Performed By: #### 1 , 055091, [id number] ####[facility] [address] [place] [address] Medical Director: Fahad Cast MD Richardson Count 0.70 x1000 Normal 0.10-1.00 [facility] Comment on above: Performed By: #### 1 , 082590, 5905297 ####[facility] [address]oylumj[address]24 [place] [address] Medical Director: Fahad Cast MD Monocytes/100 WBC (Bld) 8.4 % Normal [facility] Comment on above: Performed By: #### 1 , 809100, [id number] ####[facility] [address] [place] [address] Medical Director: Fahad Cast MD Neutrophils (Bld) [#/Vol] 6.32 x1000 Normal 1.40-8.80 [facility] Comment on above: Performed By: #### 1 , 109403, 3198127 ####[facility] [address]xb[address] [place] [address] Medical Director: Fahad Cast MD Neutrophils/100 WBC (Bld) 76.4 % Normal [facility] Comment on above: Performed By: #### 1 , 739432, 4689816 ####[facility] [address] [place] [address] Medical Director: Fahad Cast MD COMPMETAon 03-10-2020 Albumin [Mass/Vol] 3.4 g/dL Normal 3.4-5.0 [facility] Comment on above: Performed By: #### 1 48389, 743858, 7846448 ####[facility] [address]fbykn34874 [place] [address] Medical Director: Fahad Cast MD Albumin/Globulin [Mass ratio] 0.8 {ratio} Normal [facility] Comment on above: Performed By: #### 1 92695, 091003, 6877245 ####[facility] [address] [place] [address] Medical Director: Fahad Cast MD Alk Phos 71 unit/L Normal 45-117 [facility] Comment on above: Performed By: #### 1 46175, 324264, 9668674 ####[facility] [address]affie[address]94 [place] [address] Medical Director: Fahad Cast MD Bilirubin [Mass/Vol] 0.37 mg/dL Normal 0.20-1.00 [facility] Comment on above: Result Comment: Use of this assay is not recommended for patients undergoing treatment with eltrombopag due to the potential for falsely elevated results. Performed By: #### 1 08327, 402539, 2747512 ####[facility] [address]shmboly39113 [place] [address] Medical Director: Fahad Cast MD Calcium [Mass/Vol] 9.4 mg/dL Normal 8.5-10.5 [facility] Comment on above: Performed By: #### 1 68930, 744899, 5545253 ####[facility] [address] [place] [address] Medical Director: Fahad Cast MD Chloride [Moles/Vol] 108 mmol/L Normal 100-109 [facility] Comment on above: Performed By: #### 1 72393, 701320, [id number] ####[facility] [address]figzzsm21553 [place] [address] Medical Director: Fahad Cast MD CO2, venous 28.2 mmol/L Normal 21.0-32.0 [facility] Comment on above: Performed By: #### 1 60725, 106708, 5898609 ####[facility] [address] [place] [address] Medical Director: Fahad Cast MD Creatinine [Mass/Vol] 1.2 mg/dL High 0.6-1.0 [facility] Comment on above: Performed By: #### 1 02906, 938992, 6135207 ####[facility] [address] [place] [address] Medical Director: Fahad Cast MD GFR AA 53 Normal [facility] Comment on above: Result Comment: Afri can Gabonese GFR Calc Medical judgement is necessary to [...] for drug dosing. Performed By: #### 1 92254, 451814, 5559068 ####[facility] Srtkvvtu49184 [place] [address] [facility]: [facility] MD GFR/1.73 sq M predicted among non-blacks MDRD (S/P/Bld) [Vol rate/Area] 44 mL/min/1.73m? Normal [facility] Comment on above: Result Comment: Non [...] for drug dosing. Performed By: #### 1 68597, 275188, 9735949 ####[facility] [address]mlmcr68835 [place] [address] Medical Director: Fahad Cast MD Globulin (S) [Mass/Vol] 4.0 g/dL Normal [facility] Comment on above: Performed By: #### 1 78307, 394052, 8528920 ####[facility] [address] [place] [id number] Medical Director: Fahad Cast MD Glucose [Mass/Vol] 143 mg/dL High 72-100 [facility] Comment on above: Result Comment: Sharon puncture should occur prior to sulfasalazine administration due to the potential for falsely depressed results. Venipuncture should occur prior to sulfapyridine administration due to the potential falsely elevated results. Baseline assay values before administration of sulfasalazine and sulfapyridine therapy would not be affected. Performed By: #### 1 44076, 410182, [id number] ####[facility] [address]ub[address] [place] [address] Medical Director: Fahad Cast MD GOT 18 unit/L Normal 15-37 [facility] Comment on above: Result Comment: Sharon puncture should occur prior to sulfasalazine and/or sulfapyridine administration due to the potential for falsely depressed results. Baseline assay values before administration of sulfasalazine and sulfapyridine therapy would not be affected. Performed By: #### 1 25366, 930356, 9635435 ####[facility] [address] [place] [id number] Medical Director: Fahad Cast MD GPT 19 unit/L Normal 13-56 [facility] Comment on above: Result Comment: Sharon puncture should occur prior to sulfasalazine and/or sulfapyridine administration due to the potential for falsely depressed results. Baseline assay values before administration of sulfasalazine and sulfapyridine therapy would not be affected. Performed By: #### 1 76211, 317429, [id number] ####[facility] Laboratory [id number] [place] [id number] Medical Director: Fahad Cast MD Osmolality [Osmolality] 293 mOsm/kg Normal 275-295 [facility] Comment on above: Performed By: #### 1 51375, 658508, [id number] ####[facility] Laboratory [id number] [place] [address] Medical Director: Fahad Cast MD Potassium [Moles/Vol] 4.0 mmol/L Normal 3.5-5.1 [facility] Comment on above: Performed By: #### 1 32524, 837884, [id number] ####[facility] Laboratory [id number] [place] [address] Medical Director: Fahad Cast MD Protein [Mass/Vol] 7.4 g/dL Normal 6.0-8.5 [facility] Comment on above: Performed By: #### 1 55484, 569944, [id number] ####[facility] Laboratory [id number] [place] [address] Medical Director: Fahad Cast MD Sodium [Moles/Vol] 142 mmol/L Normal 135-145 [facility] Comment on above: Performed By: #### 1 86073, 973593, [id number] ####[facility] Laboratory Hbunloaa99436 [place] [address] Medical Director: Fahad Cast MD Urea nitrogen [Mass/Vol] 32 mg/dL High 10-20 [facility] Comment on above: Performed By: #### 1 45646, 647391, [id number] ####[facility] Odpmrjdp24224 [place] [address] Medical Director: Fahad Cast MD Urea nitrogen/Creatinine [Mass ratio] 26.7 mg/mg Normal [facility] Comment on above: Performed By: #### 1 84577, 547791, [id number] ####[facility] [id number] [place] [address] Medical Director: Fahad Cast MD COVID-19 by SONIA Hastings 03-10 COVID-19 by PCR SWED Positive Abnormal [facility] Comment on above: Result Comment: CALL DEANNA CHRISTIE 03/10/2020 18:23:22 EST BY SHF; RBR Performed By: #### C [id number] ####[facility] Laboratory [id number] [place], [place] 3597730 Medical Director: Fahad Cast MD CRP QUANTon 03-10-2020 C-Reactive Protein, Quantitative 0.8 mg/dL High 0.0-0.3 [facility] Comment on above: Performed By: #### 1 60370, [id number], [id number], [id number] #### [facility] Laboratory Services [address] [place] [address] Tuber Machine Operator Helper: Fahad Cast MD CT ABD PELVIS W [...] by: Oni Liu MD 03/10/2020 3:50 PM CASHIERS SUPERVISOR Technologist: LIEN BLANCA Dictated By: ONI LIU MD Signed By: ONI LIU MD Signed Out: 03/10/20 16:50:49 Normal [facility] D Dimer HSon 03-10-2020 D Dimer HS 264 ng/mL FEU Normal <=499 [facility] Comment on above: Result Comment: Excl usion of PE and DVT The D Dimer HS assay is reported in ng/ml Fibrinogen Equivalent Units (FEU). Per human resources project manager?s instructions for use, a value less than 500ng/ml (FEU) may help to exclude DVT and /or PE in outpatients when the assay is used with a clinical pretest probability assessment. D-Dimer used for DIC Screens Assay results should be used with other information, including the clinical context in forming a diagnosis. Performed By: #### 1 61118, [id number], [id number] #### [facility] Laboratory Services [address] [place] [address] Tuber Machine Operator Helper: Fahad Cast MD ED Physician Reporton 2019 [...] Line Saline Flush: 3 mL, IV Push, [id number] Documented Medications Documented Eliquis 5 mg oral [...] Interp, Sinus rhythm with first-degree AV block, NE interval 256, QT/QTc/433, incomplete right bundle branch [...] /100WBC NA Lymph % 12.7 % NA Richardson % 8.4 % NA Neutrophil % 76.4 % NA Eosin % 1.8 % NA Basos % 0.6 % NA Lymph Count 1.05 x1000 LOW Richardson Count 0.70 x1000 NORMAL Neutrophil Count (ANC) [...] by: Monae Hernandez MD 03/10/2020 1:58 PM CASHIERS SUPERVISOR Signed By: MONAE HERNANDEZ MD CT ABD [...] by: Oni Liu MD 03/10/2020 3:50 PM CASHIERS SUPERVISOR Signed By: ONI LIU MD . Notes: [...] Course: improving. Impression and Plan Diagnosis Syncope ([id number], Working, Medical) Plan Condition: Stable. Disposition: [...] accurately records my words and actions.. Normal [facility] ED Pre-Arrival Formon 2019 ED Pre-Arrival Form Pre-Arrival Summary Name: STR, Current Date: 03/10/2020 13:52:19 EST Gender: Date of : Age: Pre-Arrival Type: EMS ETA: 03/10/2020 14:15:00 EST Primary Care Physician: Presenting Problem: Pre-Arrival User: Neil Vázquez RN Referring Source: Location: [address] [place] [address] Emergency Department [address] [place] [address] ____ Notes: Vital Signs: Doctor Call Back: DNR Status: Miscellaneous Issues: Normal [facility] ED Progress Noteon 0 ED Progress Note report not put in by previous rn pt here for syncopal episode after diarrhea episode pt has hx of afib. pt covid+ report called to neil silva will come get pt Normal [facility] FERRITINon 03-10-2020 Ferritin [Mass/Vol] 32 ng/mL Normal 8-252 [facility] Comment on above: Performed By: #### 1 53944, [id number], CD:[id number], [id number] #### [facility] Laboratory Services [address] [place], [place] [id number] Tuber Machine Operator Helper: MD Rojelio Rodriguez 11-07-2020 DIFF? No Normal [facility] Comment on above: Performed By: #### 1 65911, 312412, [id number] ####[facility] Laboratory Vnhbgwli70421 [place] [address] Medical Director: Fahad Cast MD Erythrocyte distribution width (RBC) [Ratio] 14.5 % Normal 11.5-14.5 [facility] Comment on above: Performed By: #### 1 85434, 308932, [id number] ####[facility] Laboratory Gdtythxk98104 [place] [address] Medical Director: Fahad Cast MD Hematocrit (Bld) [Volume fraction] 35.8 % Low 36.0-46.0 [facility] Comment on above: Performed By: #### 1 62346, 642035, [id number] ####[facility] Laboratory [id number] [place] [id number] Medical Director: Fahad Cast MD Hemoglobin (Bld) [Mass/Vol] 11.7 g/dL Low 12.0-16.0 [facility] Comment on above: Performed By: #### 1 03625, 120259, [id number] ####[facility] Laboratory [id number] [place] [address] Medical Director: Fahad Cast MD MCH (RBC) [Entitic mass] 29.4 pg Normal 27.0-34.0 [facility] Comment on above: Performed By: #### 1 63417, 995257, [id number] ####[facility] Laboratory Ncjiuwru71592 [place] [address] Medical Director: Fahad Cast MD MCHC (RBC) [Mass/Vol] 32.7 g/dL Normal 32.0-37.0 [facility] Comment on above: Performed By: #### 1 60360, 801309, [id number] ####[facility] Laboratory Wujuapnj58811 [place] [address] Medical Director: Fahad Cast MD MCV (RBC) [Entitic vol] 89.8 fL Normal 80.0-100.0 [facility] Comment on above: Performed By: #### 1 18070, 666401, [id number] ####[facility] Laboratory Auolnqly22641 [place] [address] Medical Director: Fahad Cast MD Nucleated RBC (Bld) [#/Vol] 0 /100WBC Normal [facility] Comment on above: Performed By: #### 1 41467, 183302, [id number] ####[facility] Laboratory Cgycxwog76099 [place] [address] Medical Director: Fahad Cast MD Platelet mean volume (Bld) [Entitic vol] 6.7 fL Low 7.4-10.4 [facility] Comment on above: Performed By: #### 1 , 577047, [id number] ####[facility] Laboratory Bbncdfjc06760 [place] [address] Medical Director: aFhad Cast MD Platelets (Bld) [#/Vol] 252 x1000 Normal 150-450 [facility] Comment on above: Performed By: #### 1 , 718963, 1139900 ####[facility] Laboratory Kqefrxhy64473 [place] [address] Medical Director: Fahad Cast MD RBC (Bld) [#/Vol] 3.99 x10 Low 4.20-5.40 [facility] Comment on above: Result Comment: Note : RBC morphology is normal unless otherwise stated. Evaluation performed only if differential is requested. Performed By: #### 1 12933, 105804, [id number] ####[facility] Laboratory [id number] [place] [address] Medical Director: Fahad Cast MD WBC (Bld) [#/Vol] 8.3 10*3/uL Normal [facility] Comment on above: Performed By: #### 1 , 880976, [id number] ####[facility] Laboratory [address]ointooh[address]39 [place] [address] Medical Director: Fahad Cast MD WBC (Bld) [#/Vol] 8.3 x10 Normal 4.5-11.0 [facility] Comment on above: Performed By: #### 1 03861, 006402, 4086097 ####[facility] Laboratory Bxsoyzuc68798 [place] [address] Medical Director: Fahad Cast MD History and [...] Last Charted Temp Oral 36.4 degC (MAR 10:) Heart Rate Peripheral 69 bpm (MAR 10 18:00) Resp Rate 19 br/min (MAR 10:) SBP 105 mmHg (MAR 10 16:00) DBP [...] ppx: On Eliquis OT MESA on Normal [facility] LACTATEon 03-10-2020 Lactate [Moles/Vol] 1.8 mmol/L Normal 0.4-2.0 [facility] Comment on above: Performed By: #### 1 83258 #### [facility] Laboratory Services [address] [place] [id number] Tuber Machine Operator Helper: Fahad Cast MD LIPon 03-10-2020 Lipase [Catalytic activity/Vol] 135 unit/L Normal 73-393 [facility] Comment on above: Performed By: #### 1 49944, 841724, 527201 ####[facility] Laboratory [id number] [place] [address] Medical Director: Fahad Cast MD MG LEVELon 03-10-2020 Magnesium [Mass/Vol] 1.9 mg/dL Normal 1.6-2.6 [facility] Comment on above: Performed By: #### 1 02818, 513225, 579689 ####[facility] Laboratory Zuqlybjp42550 [place] [address] Medical Director: Fahad Cast MD PCTon 03-10-2020 Procalcitonin <0.05 Normal [facility] Comment on above: Result Comment: INTE [...] or septic shock. Performed By: #### 1 30285, [id number], [id number], [id number] #### [facility] Laboratory Services [address] [place] [address] Tuber Machine Operator Helper: Fahad Cast MD TROPONINon 03-10-2020 Troponin I.cardiac [Mass/Vol] ng/mL Normal 0.000-0.099 [facility] Comment on above: Result Comment: This test is a quantitative determination of cardiac troponin I. High levels of serum biotin may interfere with this test. Performed By: #### 1 53876, 999647, 592541 ####[facility] Laboratory [id number] [place] [address] Medical Director: Fahad Cast MD [...] by: Monae Hernandez MD 03/10/2020 1:58 PM CASHIERS SUPERVISOR Technologist: TSTHANG Dictated By: MONAE HERNANDEZ MD Signed By: MONAE HERNANDEZ MD Signed Out: 03/10/20 14:58:26 Normal [facility] Vital Signs Date Time Vital Sign Value Performing Clinician Facility 10-28-2023 08:41-0400 Body height 165.1 cm [facility] 10-28-2023 08:41-0400 Body mass index (BMI) [Ratio] 27.9 kg/m2 [facility] 10-28-2023 08:41-0400 Body weight 76.2 kg [facility] 10-28-2023 08:41-0400 Diastolic blood pressure 68 mm[Hg] [facility] 10-28-2023 08:41-0400 Heart rate 58 /min [facility] 10-28-2023 08:41-0400 Systolic blood pressure 106 mm[Hg] [facility] 08-20-2023 14:38-0400 Body height 165.1 cm [employer] Work Phone: [facility] 08-20-2023 14:38-0400 Body mass index (BMI) [Ratio] 27.96 kg/m2 [employer] Work Phone: [facility] 08-20-2023 14:38-0400 Body weight 76.2 kg [employer] Work Phone: [facility] 07-23-2023 14:45-0400 Body height 165.1 cm [employer] Work Phone: [facility] 07-23-2023 14:45-0400 Body mass index (BMI) [Ratio] 27.96 kg/m2 [employer] Work Phone: [employer] [facility] 07-23-2023 14:45-0400 Body weight 76.2 kg [employer] Work Phone: [facility] 2023 15:34-0500 Body temperature 97.9 [degF] Miko Ohara MD Work Phone: [facility] 2023 15:34-0500 Diastolic blood pressure 53 mm[Hg] Miko Ohara MD Work Phone: [facility] 2023 15:34-0500 Heart rate 80 /min Miko Ohara MD Work Phone: [facility] 2023 15:34-0500 Respiratory rate 16 /min Miko Ohara MD Work Phone: [facility] 2023 15:34-0500 SaO2% (BldA) [Mass fraction] 98 % Miko Ohara MD Work Phone: [facility] 2023 15:34-0500 Systolic blood pressure 110 mm[Hg] Miko Ohara MD Work Phone: [facility] 07-07-2023 16:39-0500 Body height 165.1 cm Miko Ohara MD Work Phone: [facility] 07-07-2023 16:39-0500 Body mass index (BMI) [Ratio] 28.02 kg/m2 Miko Ohara MD Work Phone: [facility] 07-07-2023 16:39-0500 Body weight 76.39 kg Miko Ohara MD Work Phone: [facility] 06-18-2023 14:31-0500 Body height 165.1 cm Miko Ohara MD Work Phone: [facility] 06-18-2023 14:31-0500 Body mass index (BMI) [Ratio] 28.12 kg/m2 Miko Ohara MD Work Phone: [facility] 06-18-2023 14:31-0500 Body weight 76.66 kg Miko Ohara MD Work Phone: [facility] 06-02-2023 11:19-0500 Body height 165.1 cm Donna Diaz MD Work Phone: [facility] 06-02-2023 11:19-0500 Body mass index (BMI) [Ratio] 28.12 kg/m2 Donna Diaz MD Work Phone: [facility] 06-02-2023 11:19-0500 Body weight 76.66 kg Donna Diaz MD Work Phone: [employer] 06-02-2023 11:19-0500 Diastolic blood pressure 68 mm[Hg] Donna Diaz MD Work Phone: [employer] 06-02-2023 11:19-0500 Heart rate 62 /min Donna Diaz MD Work Phone: [employer] 06-02-2023 11:19-0500 SaO2% (BldA) [Mass fraction] 99 % Donna Diaz MD Work Phone: [employer] 06-02-2023 11:19-0500 Systolic blood pressure 106 mm[Hg] Donna Diaz MD Work Phone: [employer] 05-14-2023 09:38-0500 Body height 165.1 cm Miko Ohara MD Work Phone: [employer] 05-14-2023 09:38-0500 Body mass index (BMI) [Ratio] 29.12 kg/m2 Miko Ohara MD Work Phone: [employer] 05-14-2023 09:38-0500 Body temperature 98.2 [degF] Miko Ohara MD Work Phone: [employer] 05-14-2023 09:38-0500 Body weight 79.38 kg Miko Ohara MD Work Phone: [employer] 10-30-2022 14:45-0400 Body height 165.1 cm Elliot Starks Other [employer] Other 10-30-2022 14:45-0400 Body mass index (BMI) [Ratio] 28.4 kg/m2 Elliot Starks Other [employer] Other 10-30-2022 14:45-0400 Body weight 77.43 kg Elliot Starks Other [employer] Other 10-30-2022 14:45-0400 Diastolic blood pressure 66 mm[Hg] Elliot Starks Other [employer] Other 10-30-2022 14:45-0400 Systolic blood pressure 123 mm[Hg] Elliot Starks Other [employer] Other 06-04-2022 11:30-0500 Body height 165.1 cm Elliot Starks Other [employer] Other 06-04-2022 11:30-0500 Body mass index (BMI) [Ratio] 28.29 kg/m2 Elliot Starks Other [employer] Other 06-04-2022 11:30-0500 Body weight 77.11 kg Elliot Starks Other [employer] Other 06-04-2022 11:30-0500 Diastolic blood pressure 64 mm[Hg] Elliot Starks Other [employer] Other 06-04-2022 11:30-0500 SaO2% (BldA) [Mass fraction] 99 % Elliot Starks Other [employer] Other 06-04-2022 11:30-0500 Systolic blood pressure 104 mm[Hg] Elliot Starks Other [employer] Other Encounters Encounter Date Encounter Type Care Provider Facility Start: 06-01-2024 ambulatory Alfreda Miller Facility:[facility] Start: 10-28-2023 End: 10-28-2023 ambulatory [facility] Work Phone: Start: 10-28-2023 End: 10-28-2023 Patient encounter procedure Replaced By [facility] Work Phone: Start: 09-30-2023 End: 10-01-2023 ambulatory ANDREW CHOI [place] Start: 09-17-2023 Telephone encounter Matt Duron Hematology/Oncology Comment on above: Yearly Exam With Shane rodriguez Start: 08-20-2023 End: 08-20-2023 Subsequent hospital visit by physician Divine Mahmood Work Phone: [facility] Start: 08-20-2023 ambulatory [facility] Start: 08-20-2023 End: 08-20-2023 Postop follow up visit related to original px Divine Mahmood Work Phone: [facility] Comment on above: Right hip pain (Prim hayden Dx) Start: 08-20-2023 ambulatory [facility] Start: 08-12-2023 End: 08-12-2023 ambulatory MIKO VASQUEZ [place] Start: 07-23-2023 End: 07-23-2023 Postop follow up visit related to original px Divine Mahmood Work Phone: [facility] Comment on above: Tear of gluteus mini mus tendon, right, initial encounter (Primary Dx) Start: 07-23-2023 End: 07-23-2023 Subsequent hospital visit by physician Divine Mahmood Work Phone: [facility] Start: 07-23-2023 ambulatory [facility] Start: 07-17-2023 Refill [facility]alloway [facility] Comment on above: Med Refill Start: 07-15-2023 End: 07-16-2023 Emergency department patient visit EILEEN BLANTON [place] Start: 07-15-2023 Telephone encounter Ashia Goncalves RN [facility] Start: 07-15-2023 End: 07-15-2023 Emergency department patient [facility] Malini [facility] Start: 07-07-2023 End: 2023 Encounter for other preprocedural examination [facility] Start: 07-07-2023 End: 2023 Evaluation and management of inpatient Miko Ohara MD Work Phone: [facility] Comment on above: Status post revision of total hip Start: 07-07-2023 End: 2023 Patient encounter status Miko Ohara MD Work Phone: [facility] Start: 07-01-2023 Patient encounter status [facility] Start: 06-25-2023 ambulatory [facility] Start: 06-19-2023 Telephone encounter Jacqueline Sparrow RN [facility] Comment on above: Pre op clearance Start: 06-18-2023 End: 06-18-2023 Office outpatient visit 40 minutes Miko Ohara MD Work Phone: [facility] Comment on above: Right hip pain (Prim hayden Dx) Start: 06-18-2023 ambulatory [facility] Start: 06-08-2023 End: 06-09-2023 ambulatory Daisy Liz MD Facility: [facility] Start: 06-02-2023 End: 06-02-2023 Office outpatient visit 25 minutes Donna Diaz MD Work Phone: [facility] Comment on above: Paroxysmal atrial fi brillation (CMS-HCC) (Primary Dx); Primary hypertension; Chronic coronary artery disease Start: 06-02-2023 End: 06-02-2023 ambulatory DONNA DIAZ [place] Start: 06-01-2023 ambulatory [facility] Start: 05-28-2023 ambulatory [facility] Start: 05-27-2023 End: 05-28-2023 ambulatory Alfreda Miller Facility:[facility] Start: 05-25-2023 End: 05-26-2023 ambulatory Daisy Liz MD Facility: [facility] Start: 05-18-2023 End: 05-19-2023 ambulatory Daisy Liz MD Facility:[facility] Start: 05-14-2023 ambulatory [facility] Start: 05-14-2023 End: 05-14-2023 Office outpatient new 30 minutes Miko Ohara MD Work Phone: [facility] Comment on above: Pain in prosthetic j oint, initial encounter (Primary Dx); Primary osteoarthritis of right hip Start: 05-14-2023 End: 05-14-2023 Subsequent hospital visit by physician Miko Ohara MD Work Phone: [facility] Start: 05-14-2023 ambulatory [facility] Start: 03-30-2023 (Televisit) Televisit Elliot Starks [facility] Start: 03-30-2023 End: 03-30-2023 ambulatory Elliot Starks Other [facility] Other Start: 02-11-2023 End: 02-12-2023 ambulatory Alfreda Miller Facility:[facility] Start: 02-11-2023 End: 02-11-2023 Patient encounter procedure Alfreda Miller [facility] Start: 12-29-2022 Preoperative state Donna franks MD Work Phone: [facility] Start: 11-17-2022 End: 11-17-2022 ambulatory Elliot Starks Other [employer] Other Start: 11-17-2022 Telephone encounter Elliot Starks [facility] Start: 11-06-2022 ambulatory Alfreda Miller Facility:[facility] Start: 10-30-2022 End: 10-30-2022 ambulatory Elliot Starks Other [facility] Other Start: 10-30-2022 Office outpatient vi sit 15 minutes Elliot Starks [facility] Start: 10-29-2022 End: 10-29-2022 ambulatory Elliot Starks Other [facility] Other Start: 10-29-2022 Telephone encounter Elliot Starks [facility] Start: 10-27-2022 Nursing evaluation o f patient and report Elliot Starks [facility] Start: 10-27-2022 End: 10-27-2022 ambulatory Elliot Starks [facility] Other Start: 10-27-2022 End: 10-27-2022 Departed Referred MD Elliot Starks Work Phone: [facility] [place] Work Phone: Start: 09-11-2022 Telephone encounter Matt Duron Hematology/Oncology Comment on above: Orders Start: 08-11-2022 End: 08-11-2022 ambulatory Elliot Starks Other [employer] Other Start: 08-11-2022 Nursing evaluation o f patient and report Elliot Starks [facility] Start: 07-17-2022 (Televisit) Televisit Elliot Dela Cruz [facility] Start: 07-17-2022 End: 07-17-2022 ambulatory Elliot Starks Other [facility] Other Start: 06-23-2022 End: 06-23-2022 ambulatory Elliot Starks Other [facility] Other Start: 06-23-2022 Nursing evaluation o f patient and report Elliot Starks [facility] Start: 06-09-2022 End: 06-09-[address] ELLIOT STARKS Facility:[facility] Start: 06-06-2022 End: 06-06-2022 ambulatory Elliot Starks Other [facility] Other Start: 06-06-2022 Telephone encounter Elliot Starks [facility] Start: 06-04-2022 End: 06-04-2022 ambulatory Elliot Starks Other [facility] Other Start: 06-04-2022 Office outpatient vi sit 25 minutes Elliot Starks [facility] Start: 05-21-2022 End: 05-21-2022 ambulatory Elliot Starks Other [facility] Other Start: 05-21-2022 Telephone encounter Elliot Starks [facility] Start: 04-26-2022 End: 04-26-[address] ELLIOT STARKS Facility:[facility] Start: 04-14-2022 End: 04-14-[address] ELLIOT STARKS Facility: Start: 12-18-2021 End: 12-18-2021 ambulatory [facility] Facility:[facility] Start: 10-03-2021 Telephone encounter Andrew black MD Work Phone: Hematology/Oncology Comment on above: Lab Orders Start: 09-26-2021 Telephone encounter Mikaela jimenez RN Work Phone: Hematology/Oncology Comment on above: Radiology Mammogram Start: 12-02-2016 End: 12-03-2016 Ambulatory DEFAULT PHYSICIAN Facility:[facility] Procedures Date Procedure Procedure Detail Performing Clinician Start: 2023 Basic metabolic pane l calcium total Chance Mahoney MD Work Phone: Start: 2023 Complete blood count with white cell differential, automated Paula Fitzpatrick DIRECTOR OF STUDENT AID-GOVERNMENT TEACHER Work Phone: Start: 07-07-2023 Cultyp nuc acid amp prb cult/isolate ea orgnism Chance Mahoney MD Work Phone: Start: 07-07-2023 Radiologic examinati on pelvis 1/2 views Paula Fitzpatrick DIRECTOR OF STUDENT AID-GOVERNMENT TEACHER Work Phone: Start: 07-07-2023 Cell count miscellan eous body fluids Miko Ohara MD Work Phone: Start: 07-07-2023 Bacterial culture an d sensitivity Miko Ohara MD Work Phone: Start: 07-07-2023 End: 07-07-2023 Culture bacterial any source anaerobic iso&id Miko Ohara MD Work Phone: Start: 07-07-2023 End: 07-07-2023 Revj tot hip arthrp bth w/wo agrft/algrft Miko Ohara MD Work Phone: Start: 07-07-2023 End: 07-07-2023 Unlisted procedure pelvis/hip joint Miko Ohara MD Work Phone: Start: 07-07-2023 Blood group typing, RH phenotyping Larissadesiree Rollins PA-C Work Phone: Start: 06-02-2023 Ecg routine ecg w/le ast 12 lds w/i&r Donna Diaz MD Work Phone: Start: 06-02-2023 Follow-up visit Follow-up DONNA DIAZ Start: 05-14-2023 Heavy metal quantiat david each tiffany Miko Ohara MD Work Phone: Start: 09-25-2020 Mammography Mikaela jimenez RN Work Phone: Start: 10-07-2019 Adult depression scr eening assessment Mikaela Thompson RN Work Phone: Start: 04-08-2017 Colonoscopy Donna [...] Treatment Date Care Activity Detail Author Start: 07-14-2024 Tobacco Screening Tobacco Screening [facility] Start: 07-07-2024 Potassium [Moles/vol ume] in Serum or Plasma POTASSIUM [facility] Start: 06-02-2024 Adult BMI Screening Adult BMI Screen ing [facility] Start: 06-02-2024 Tobacco Screening Tobacco Screening [facility] Start: 01-03-2024 Influenza vaccination Influenz a Vaccine (Season Ended) [facility] Start: 11-26-2023 End: 11-26-2023 Patient encounter procedure 11/26/2023 2:00 PM EDT Office Visit [facility] [address] [place] [id number] Miko Ohara MD [address] [place] [id number] [facility] Start: 10-09-2023 DIABETES SCREEN DIABETES SCREEN [facility] Start: 10-09-2023 Diabetes Screening Diabetes Screenin g [facility] Start: 08-20-2023 End: 08-20-2023 Patient encounter procedure 08/20/2023 2:30 PM EDT Office Visit [facility] [address] [place] [id number] Divine Mahmood [address] [place] [phone] [facility] Start: 08-12-2023 End: 08-12-2023 Patient encounter procedure 08/12/2023 8:00 AM EDT Office Visit [facility] [address] [place] [phone] Miko Vasquez, DIRECTOR OF STUDENT AID-GOVERNMENT TEACHER [address] [place] [address] [facility] Start: 07-23-2023 End: 07-23-2023 Patient encounter procedure 07/23/2023 2:30 PM EDT Office Visit [facility] [address] [facility] [place] [address] Divine Mahmood [address] [place] [address] 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, initial encounter 07/07/2023 12:25 PM EST [facility] Start: 07-07-2023 End: 07-07-2023 Unlisted procedure pelvis/hip joint GLUTEUS MEDIUS TENDON REPAIR Tear of rotator cuff of right hip, initial encounter 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, initial encounter 07/07/2023 12:25 PM EST [facility] Start: 06-25-2023 End: 06-25-2023 Admission to establishment 06/25/2023 10:00 AM EST Pre-Operative Nurse Assessment [facility] Pre Admission [address] [place] [phone] Pre-op testing (Primary Dx); Essential (primary) hypertension; Abnormal finding of blood chemistry, unspecified; Abnormal coagulation profile [facility] Comment on above: Pre-op testing (Prim hayden Dx); Essential (primary) hypertension; Abnormal finding of blood chemistry, unspecified; Abnormal coagulation profile Start: 05-28-2023 End: 05-28-2023 Patient encounter procedure 05/28/2023 11:00 AM EST Office Visit [facility] [address] [facility] [place] [address] Antelmo Richey DO [address] [place] [address] [facility] Start: 05-14-2023 End: 05-14-2024 MR Hip - right WO contrast MRI HIP RIGHT WITHOUT CONTRAST Imaging Routine Pain in prosthetic joint, initial encounter Expected: 05/14/2023, Expires: 05/14/2024 [facility] Comment on above: Expected: 05/14/2023 , Expires: 05/14/2024 Start: 05-04-2023 Advance Directive Discussion Advance Directive Discussion [facility] Start: 05-04-2023 Behavioral Health Screening Behavioral Health Screening [facility] Start: 01-02-2023 Covid-19 Vaccine ( season) Covid-19 Vaccine () [facility] Start: 01-02-2023 COVID-19 VACCINE () COVID-19 VACCINE () [facility] Start: 01-02-2023 Influenza vaccination INFLUENZA (Sea son Ended) [facility] Start: 10-27-2022 Bacteria identified in Urine by Culture [facility] Start: 05-04-2022 ADVANCE DIRECTIVE DISCUSSION ADVANCE DIRECTIVE DISCUSSION [facility] Start: 05-04-2022 DEPRESSION ASSESSMENT DEPRESSION ASS ESSMENT [facility] Start: 04-08-2022 Screening for malign ant neoplasm of colon Colonoscopy [facility] Start: 01-02-2022 Influenza vaccination INFLUENZA (Sea son Ended) [facility] Start: 10-07-2021 End: 12-07-2021 Cancer Ag 27-29 [Units/volume] in Serum or Plasma CA 27.29 BLOOD Lab Routine Malignant neoplasm of upper-outer quadrant of left breast in female, estrogen receptor positive (HCC) Expected: 10/07/2021, Expires: 12/07/2021 [facility] Work Phone: Comment on above: Expected: 10/07/2021 , Expires: 12/07/2021 Start: 10-07-2021 End: 12-07-2021 CBC W Auto Differential panel - Blood CBC + DIFF Lab Routine Malignant neoplasm of upper-outer quadrant of left breast in female, estrogen receptor positive (HCC) Expected: 10/07/2021, Expires: 12/07/2021 [facility] Work Phone: Comment on above: Expected: 10/07/2021 , Expires: 12/07/2021 Start: 10-07-2021 End: 12-07-2021 Comprehensive metabolic 2000 panel - Serum or Plasma COMP METABOLIC PANEL Lab Routine Malignant neoplasm of upper-outer quadrant of left breast in female, estrogen receptor positive (HCC) Expected: 10/07/2021, Expires: 12/07/2021 [facility] Work Phone: Comment on above: Expected: 10/07/2021 , Expires: 12/07/2021 Start: 09-25-2021 Mammography MAMMOGRAM [facility] Start: 05-04-2021 ADVANCE DIRECTIVE DISCUSSION ADVANCE DIRECTIVE DISCUSSION [facility] Start: 11-17-2020 COVID-19 VACCINE (3 - Booster for Pfizer series) COVID-19 VACCINE (3 - Booster for Pfizer series) [facility] Start: 10-06-2020 Adult depression screening assessment DEPRESSION SCREENING [facility] Start: 08-15-2020 COVID-19 VACCINE (3 - Booster for Pfizer series) COVID-19 VACCINE (3 - Booster for Pfizer series) [facility] Start: 01-05-2019 Pneumococcal Vaccine : 65+ (2 of 2 - PCV) Pneumococcal Vaccine: 65+ (2 of 2 - PCV) [facility] Start: 01-05-2019 PNEUMOCOCCAL: 65+ (2 - PCV) PNEUMOCOCCAL: 65+ (2 - PCV) [facility] Start: 07-07-2012 BONE DENSITY BONE DENSITY [facility] Start: 07-07-2012 Fall Risk Screening Fall Risk Screen ing [facility] Start: 07-07-2012 Screening for osteoporosis Bone Density Screening [facility] Start: 2007 RSV Vaccine (1 - 1-d ose 60+ series) RSV Vaccine (1 - 1-dose 60+ series) [facility] Start: 07-07-1997 Administration of varicella zoster vaccine Zoster (Shingles) Vaccine (1 of 2) [facility] Start: 07-07-1997 SHINGRIX VACCINE (1 of 2) SHINGRIX VACCINE (1 of 2) [facility] Start: 07-07-1997 Zoster vaccine hzv l david for subcutaneous use ZOSTER (SHINGLES) VACCINE (1 of 2) [facility] Start: 07-07-1992 COLOGUARD (FIT-DNA) COLOGUARD (FIT-D NA) [facility] Start: 07-07-1992 Colonoscopy COLONOSCOPY [facility] Start: 07-07-1992 COLORECTAL CANCER SCREENING COLORECTAL CANCER SCREENING [facility] Start: 07-07-[address] COLONOGRAPHY [facility] Start: 07-07-1992 FECAL OCCULT BLOOD FECAL OCCULT BLOO D [facility] Start: 07-07-1992 LIPID SCREEN LIPID SCREEN [facility] Start: 07-07-1992 Screening for malign ant neoplasm of colon COLORECTAL CANCER SCREENING DISCUSSION [facility] Start: 07-07-1992 SIGMOIDOSCOPY SIGMOIDOSCOPY [facility] Start: 1987 Lipid panel LIPID SCREENING [facility] Start: 1987 Screening for malign ant neoplasm of breast MAMMOGRAM SCREENING DISCUSSION [facility] Start: 07-07-1968 Screening for malign ant neoplasm of cervix CERVICAL CANCER SCREENING DISCUSSION [facility] Start: 07-07-1966 DTaP,Tdap and Td Vaccines (1 - Tdap) DTaP,Tdap and Td Vaccines (1 - Tdap) [facility] Start: 07-07-1966 Third diphtheria, tetanus and acellular pertussis (DTaP) vaccination TDAP (ADULT) [facility] Start: 07-07-1966 Urine microalbumin profile [facility] Start: 07-07-1965 Adult BMI Follow Up Plan Adult BMI F ollow Up Plan [facility] Start: 07-07-1965 HEPATITIS C SCREENING HEPATITIS C SC REENING [facility] Start: 1959 Depression Screening Depression Scre ening [facility] Start: 07-07-1953 PNEUMOCOCCAL: 65+ (1 - PCV) PNEUMOCOCCAL: 65+ (1 - PCV) [facility] Start: 1947 Hepatitis C screening HEPATITI S C VIRUS SCREENING [facility] Start: 1947 Medicare Annual Well ness Visit Medicare Annual Wellness Visit [facility] Start: 1945 Potassium [Moles/vol ume] in Serum or Plasma POTASSIUM [facility] Start: 1945 Screening for osteoporosis DEXA SCAN DISCUSSION [facility] Start: 1945 Tetanus vaccination TETANUS [facility] Comment on above: Release Upon Kb saenz for 1 Occurrences starting 07/07/2023 Bacterial culture an d sensitivity CULTURE WOUND Microbiology Routine 07/07/2023 2:27 PM [employer] BODY FLUID CELL COUNT BODY FLUID CELL COUNT Fluids Routine Tear of rotator cuff of right hip, initial encounter 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, initial encounter Release Upon Ordering for 1 Occurrences starting 07/07/2023 [employer] Comment on above: Release Upon Orderin g for 1 Occurrences starting 07/07/2023 End: 10-16-2024 DBT Breast - bilateral screening SHANE SCREENING [facility] Radiology Routine Encounter for screening mammogram for malignant neoplasm of breast 1 Occurrences starting 09/17/2023 until 10/16/2024 [facility] Work Phone: Comment on above: 1 Occurrences starti ng 09/17/2023 until 10/16/2024 End: 07-07-2023 Fungus identified in Unspecified specimen by Culture [employer] Comment on above: Release Upon Orderin g for 1 Occurrences starting 07/07/2023 One Time for 1 Occur rences starting 07/07/2023 until 07/07/2023 End: 10-26-2022 SHANE SCREENING [facility] SHANE SCREENING [facility] Radiology Routine Encounter for screening mammogram for malignant neoplasm of breast 1 Occurrences starting 09/26/2021 until 10/26/2022 [facility] Work Phone: Comment on above: 1 Occurrences starti ng 09/26/2021 until 10/26/2022 End: 10-11-2023 SHANE SCREENING W YAW SHANE SCREENING [facility] Radiology Routine Encounter for screening mammogram for malignant neoplasm of breast 1 Occurrences starting 09/11/2022 until 10/11/2023 [facility] Work Phone: Comment on above: 1 Occurrences starti ng 09/11/2022 until 10/11/2023 End: 07-07-2023 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 [employer] Comment on above: Release Upon Orderin g for 1 Occurrences starting 07/07/2023 One Time for 1 Occur rences starting 07/07/2023 until 07/07/2023 XR Pelvis and Hip - right Views XR HIP WITH PELVIS RIGHT Imaging Routine Primary osteoarthritis of right hip 05/14/2023 9:20 AM [employer] Work Phone: XR Pelvis and Hip - right Views XR HIP WITH PELVIS RIGHT Imaging Routine Tear of gluteus minimus tendon, right, initial encounter 07/23/2023 2:22 PM EDT [facility] XR Pelvis and Hip - right Views XR HIP WITH PELVIS RIGHT Imaging Routine Right hip pain 08/20/2023 3:17 PM EDT [facility] Immunizations Immunization Date Immunization Notes Care Provider Pablo wheat 02-10-2023 influenza virus vaccine, unspecified formulation Alfreda Miller [facility] 02-01-2022 influenza virus vaccine, unspecified formulation Alfreda Miller [facility] 08-13-2021 SARS-CoV-2 mRNA (cmpuzhnxiix-enqe-gqnpt se) vaccine Alfreda Lue [facility] 01-29-2021 SARS-CoV-2 (COVID-19 ) mRNA BNT-162b2 vax Alfreda Lue [facility] Comment on above: Result Comment: 2022: [id number] 06-20-2020 COVID-19 vaccine, ag e 12+ yr (PFIZER-BIONTECH - PURPLE TOP) Mikaela Thomspon RN Work Phone: [facility] 05-28-2020 SARS-CoV-2 (COVID-19 ) mRNA BNT-162b2 vax Alfreda Lue [facility] 05-18-2020 COVID-19 vaccine, ag e 12+ yr (PFIZER-BIONTECH - PURPLE TOP) Mikaela Thompson RN Work Phone: [facility] 01-27-2020 influenza virus vaccine, split virus (incl. purified surface antigen) Elliot Starks Other [employer] Other 01-27-2020 influenza virus vaccine, unspecified formulation Alfreda Lue [facility] 01-20-2019 influenza virus vaccine, unspecified formulation Alfreda Lue [facility] 01-20-2019 influenza, high dose seasonal, preservative-free Mikaela Thompson RN Work Phone: [facility] 03-09-2018 influenza virus vaccine, unspecified formulation Alfreda Lue [facility] 01-05-2018 influenza virus vaccine, split virus (incl. purified surface antigen) Elliot Starks Other [employer] Other 01-05-2018 influenza virus vaccine, unspecified formulation Alfreda Lue [facility] 01-05-2018 influenza, high dose seasonal, preservative-free Mikaela Thompson RN Work Phone: [facility] 01-05-2018 pneumococcal polysaccharide vaccine, 23 valent Mikaela Thompson RN Work Phone: [facility] 02-25-2017 influenza virus vaccine, unspecified formulation Alfreda Lue [facility] 02-17-2017 pneumococcal polysaccharide vaccine, 23 valent Alfreda Lue [facility] 02-05-2017 influenza virus vaccine, split virus (incl. purified surface antigen) Elliot Starks Other [employer] Other 02-05-2017 influenza virus vaccine, unspecified formulation Alfreda Lue [facility] 02-05-2017 pneumococcal conjuga te vaccine, 13 valent Alfreda Lue [facility] 02-01-2002 pneumococcal polysaccharide vaccine, 23 valfrancois Hillsia Raudel Other [facility] Payers Date Payer Category Payer Private Health Insurance 2022 Self-pay 2014 Medicare AETNA MEDICARE A ETNA MEDICARE PPO [id number] 2014-Present [phone] [address] [place] [address] PPO [id number] 2014 Medicare [id number] 1959 Medicare [id number] 1945 Unknown [id number] 2.16.840.1.405237.3.579.2.5 93 1947 Unknown [id number] 2.16.840.1.112285.3.579.2.5 93 1947 Unknown [id number] 2.16.840.1.437728.3.579.2.5 93 1947 Unknown [id number] 2.16.840.1.306383.3.579.2.7 18 1947 Unknown [id number] 2.16.840.1.785157.3.579.2.7 27 1947 Unknown [id number] 2.16.840.1.767997.3.579.2.7 27 1947 Unknown [id number] 2.16.840.1.368929.3.579.2.7 27 1947 Unknown [id number] 2.16.840.1.213674.3.579.2.1 96 1947 Unknown [id number] 2.16.840.1.615509.3.579.2.1 96 1947 Unknown [id number] 2.16.840.1.150956.3.579.2.1 96 1947 Unknown [id number] 2.16.840.1.022258.3.579.2.1 286 1947 Unknown [id number] 2.16.840.1.208329.3.579.2.1 286 1947 Unknown [id number] 2.16.840.1.840209.3.579.2.1 286 1947 Unknown [id number] 2.16.840.1.229070.3.579.2.1 286 1947 Unknown [id number] 2.16.840.1.802431.3.579.2.1 286 1947 Unknown [id number] 2.16.840.1.011678.3.579.2.9 83 1947 Unknown [id number] 2.16.840.1.408902.3.579.2.9 83 1947 Unknown [id number] 2.16.840.1.975716.3.579.2.9 83 1947 Unknown [id number] 2.16.840.1.621068.3.579.2.9 83 1947 Unknown [id number] 2.16.840.1.846531.3.579.2.9 83 1947 Unknown [id number] 2.16.840.1.204852.3.579.2.9 83 1947 Unknown [id number] 2.16.840.1.982048.3.579.2.9 83 1947 Unknown [id number] 2.16.840.1.061325.3.579.2.9 83 1947 Unknown [id number] 2.16.840.1.686193.3.579.2.9 83 1947 Unknown [id number] 2.16.840.1.518593.3.579.2.9 83 1947 Unknown [id number] 2.16.840.1.159400.3.579.2.9 83 1947 Unknown [id number] 2.16.840.1.020124.3.579.2.9 83 [facility] Health [facility] [id number] Unknown Unknown [id number] 2.16.840.1.393008.3.579.2.5 31 Social History Date Type Detail Facility Start: 12-03-2015 End: 12-06-2015 Tobacco smoking status NHIS Ex-smoker [facility] End: 12-05-1990 History of tobacco use Current smoker [facility] Start: 12-03-2015 End: 05-17-2022 Cigarettes smoked current (pack per day) - Reported 1 [facility] Start: 12-03-2015 End: 12-06-2015 Tobacco use and exposure Smokeless tobacco non-user [facility] Start: 10-08-2020 End: 08-20-2023 Alcohol intake Current drinker of alcohol (finding) [facility] Start: 1945 Sex Assigned At Not on file [facility] Start: 05-17-2022 End: 05-14-2023 Sex Assigned At [facility] End: 12-05-1990 History of tobacco use Cigarette Smoker [facility] Start: 1945 Sex Assigned At Female [facility] Tobacco smoking status Never [facility] Start: 05-14-2023 Tobacco smoking stat us WVIS Never smoked tobacco [facility] Start: 03-31-2022 Tobacco Comment quit in 1989 [facility] Start: 03-19-2017 End: 06-19-2023 Alcohol Comment social [facility] Start: 05-09-2018 Gender identity Identifies as female gender (finding) [facility] Has the [employer], [employer], [employer], or water company threatened to shut off services in your home in past 12Mo No [facility] (I/We) worried wheth er (my/our) food would run out before (I/we) got money to buy more. Never true [facility] Medical Equipment Procedure Code Equipment Code Equipment Origin al Text Equipment Identifier Dates Anchors, 5.5 Non Punching - [id number] Start: 07-07-2023 Anchors, 5.5 Non Punching - [id number] Start: 07-07-2023 Functional Status Date Assessment Result Facility 02-11-2023 Functional Status N/A [facility] Clinical Notes 09-26-2021 to 09-17-2023 Telephone Encounter - Matt Adams RN - 09/17/2023 1:30 PM EDTTelephone Encounter - Matt Adams RN - 09/17/2023 1:30 PM EDTTelephone Encounter - Matt Adams RN - 09/17/2023 10:18 AM EDT Note Date & Type Note Facility 09-17-2023 Telephone encounter Note Order faxed to Torey Julio Pt aware. Matt Adams RN [facility] 09-17-2023 Miscellaneous Notes Order faxed to Torey Julio Pt aware. Matt Adams RN Pt called to request yearly Mammogram order I have pended order as previously completed Pt requests to fax to Nori Lema [phone] BRM/HM: please review and sign if agreeable Matt Adams RN documented in this encounter [facility] 09-17-2023 Telephone encounter Note Pt called to request yearly Mammogram order I have pended order as previously completed Pt requests to fax to Nori Lema [phone] BRM/HM: please review and sign if agreeable Matt Adams RN [facility] 08-20-2023 History of Presen t illness Narrative Ortho Nurse - Established Patient Intake Room#: room 2--- pt here today for 3 wk follow-up from OV 07/23/23 for a RT. ABD repair. Pt rates her pain on a scale of 3/10 today. Pt states she is doing better and seems to be progressing. Pt did ambulate in with a walker. Pt states she is interested in Physcial Therapy through [facility]. Date: 08/20/2023 2:38 PM Patient: Bettie Burns MR#: [id number] : 1945 Age: 78 y.o. Referring Physician: Self, Self Insurance: Payor: MEDICARE [employer] HMO [place] PPO / Plan: MEDICARE [employer] PPO / Product Type: *No Product type* / Chief Complaint Patient presents with Right Hip - Follow-up Visit Vitals Ht 1.651 m (5' 5 ) Wt 76.2 kg (168 lb) BMI 27.96 kg/m Pain Recent Labs Lab Results Component Value Date CRP 48.4 (H) 05/14/2023 Lab Results Component Value Date SEDRATE 7 06/25/2023 Lab Results Component Value Date WBC 6.6 2023 HGB 12.0 2023 HCT 33.6 (L) 2023 PLATELET 226 2023 MCV 94.2 2023 History Past Medical History: Diagnosis Date Stomach ulcer 2000 Arrhythmia a-fib Arthritis Essential hypertension, benign GERD (gastroesophageal reflux disease) Hematuria had it forever, it's just normal Migraine Past Surgical History: Procedure Laterality Date GLUTEUS MEDIUS TENDON REPAIR Right 07/07/2023 Laterality: Right; Surgeon: Miko Ohara MD; Location: [facility] REVISION ARTHROPLASTY HIP BOTH ACETABULAR & FEMORAL COMPONENTS Right 07/07/2023 Laterality: Right; Surgeon: Miko Ohara MD; Location: [facility] HIP REPLACEMENT 2021 ABLATION NERVE RADIOFREQUENCY PULSED 09/2018 for a-fib with Promedic[facility] Beck APPENDECTOMY BREAST LUMPECTOMY FOOT SURGERY HEART CATHETERIZATION no stents NE ENDOMETRIAL CRYOABLATION REMOVAL BILIARY DUCT/GALLBLADDER CALCULI/DEBRIS PERCUTANEOUS W/ IMAGE REMOVAL CATARACT (PEM) ROTATOR CUFF REPAIR Bilateral Family History: Her family history is not on file. Social History: Her reports that she has never smoked. She has never used smokeless tobacco. She reports current alcohol use. She reports that she does not use drugs. Outpatient Medications Prior to Visit Medication Sig Dispense Refill Acetaminophen 325 MG tablet Take 2 tablets by mouth every 4 hours as needed for Mild Pain. 50 tablet 1 apixaban 2.5 MG tablet Take 2 tablets by mouth every 12 hours. Atenolol 50 MG tablet Take 1.5 tablets by mouth daily. am baclofen 10 MG tablet Take 1 tablet by mouth 3 times daily. NEEDED clarithromycin 500 MG tablet Take one tab one hour prior to dental procedure. 2 tablet 1 Docusate 100 MG capsule Take 1 capsule by mouth 2 times daily. 60 capsule 0 ESTRACE VAGINAL 0.1 MG/GM cream See Instructions, 42.5 gm, Refill(s) 3, apply pea size amount to urethra/inner vagina 3x/week x 1 month, then 2x/week for maintainence, [facility]pharmacy #[id number], 165, cm, 02/11/23 10:41:00 EDT, Height/Length Dosing, 77.5, kg, 02/11/23 10:41:00 EDT, Weight Dosing Flecainide 50 MG tablet Take 1 tablet by mouth Twice daily. hydroCHLOROthiazide 25 MG tablet Take 1 tablet by mouth daily. Lisinopril 20 MG tablet Take 1 tablet by mouth daily. Multiple Vitamin (multivitamin) capsule Take 1 capsule by mouth daily. NON-FORMULARY Med Name:Neuveria vitamin 1 qd OMEPRAZOLE PO Take 20 mg by mouth daily. am oxyCODONE 5 MG tablet Take 1-2 tabs po q 4-6 hours prn pain. Wean as tolerated. 30 tablet 0 potassium chloride 10 MEQ Tab CR tablet ER Take 1 tablet by mouth daily. SUMAtriptan 25 MG tablet as needed. temazepam 15 MG capsule Take 2 capsules by mouth At bedtime as needed for Sleep. TROSPIUM CHLORIDE PO Take 20 mg by mouth 2 times daily (take before meals). No facility-administered medications prior to visit. Allergies: She is allergic to *adhesive tape, hydrocodone-acetaminophen, levofloxacin, cephalexin, latex, morphine, oxycodone, penicillins, and tramadol. Bettie Burns is now 6 weeks s/p right Open Abductor repair with arthrex anchors. She is progressing nicely in her recovery. She is TDWB with AL restrictions. She reports 3 out of 10 pain. She is using Tylenol only as needed for pain control and has completed her prescribed regimen for DVT prophylaxis. Physical Exam: Today on exam incision is well healed with global hip swelling, no erythema, drainage or evidence of dehiscence. Calves are soft and nontender with negative Homans sign. ROM is full and supple with no pain or impingement the far limits were not tested due to the hip precautions and wb restrictions. Distal neurovascular exam is intact. Visit Vitals Ht 1.651 m (5' 5 ) Wt 76.2 kg (168 lb) BMI 27.96 kg/m Diagnostic study/interpretation: Plain films were obtained today and reveal a previous placed (2021) cementless total hip arthroplasty in good position and alignment with prior films. Right greater trochanter is consistent with recent anchor placement, no sign of obvious disruption. Assessment/Plan: 6 week postop open abductor repair -Okay to progress to PWB at this time. May progress slowly away from AL hip precautions. This was demonstrated and explained. -In 2 weeks, okay to transition self to full weight bearing. We discussed expected response from this transition, pt knows to notify us if issues. Okay to continue Tylenol as needed. -PT order provided for patient to start no sooner then 10 weeks post op. -We will otherwise plan for follow up at 4 months post op for radiological and clinical evaluation unless an earlier need should arise. All pertinant portions of the clinical business support associate documentation was reviewed and I agree with their assessment. Divine Mahmood Ortho Nurse - Established Patient Intake Room#: room 2--- pt here today for 3 wk follow-up from OV 07/23/23 for a RT. ABD repair. Pt rates her pain on a scale of 3/10 today. Pt states she is doing better and seems to be progressing. Pt did ambulate in with a walker. Pt states she is interested in Physcial Therapy through [facility]. Date: 08/20/2023 2:38 PM Patient: Bettie Burns MR#: [id number] : 1945 Age: 78 y.o. Referring Physician: Self, Self Insurance: Payor: MEDICARE AETNA HMO OR PPO / Plan: MEDICARE AETNA PPO / Product Type: *No Product type* / Chief Complaint Patient presents with Right Hip - Follow-up Visit Vitals Ht 1.651 m (5' 5 ) Wt 76.2 kg (168 lb) BMI 27.96 kg/m Pain Recent Labs Lab Results Component Value Date CRP 48.4 (H) 05/14/2023 Lab Results Component Value Date SEDRATE 7 06/25/2023 Lab Results Component Value Date WBC 6.6 2023 HGB 12.0 2023 HCT 33.6 (L) 2023 PLATELET 226 2023 MCV 94.2 2023 History Past Medical History: Diagnosis Date Stomach ulcer 2000 Arrhythmia a-fib Arthritis Essential hypertension, benign GERD (gastroesophageal reflux disease) Hematuria had it forever, it's just normal Migraine Past Surgical History: Procedure Laterality Date GLUTEUS MEDIUS TENDON REPAIR Right 07/07/2023 Laterality: Right; Surgeon: Miko Ohara MD; Location: [facility] OR REVISION ARTHROPLASTY HIP BOTH ACETABULAR & FEMORAL COMPONENTS Right 07/07/2023 Laterality: Right; Surgeon: Miko Ohara MD; Location: [facility] OR HIP REPLACEMENT 2021 ABLATION NERVE RADIOFREQUENCY PULSED 09/2018 for a-fib with [facility] APPENDECTOMY BREAST LUMPECTOMY FOOT SURGERY HEART CATHETERIZATION no stents NE ENDOMETRIAL CRYOABLATION REMOVAL BILIARY DUCT/GALLBLADDER CALCULI/DEBRIS PERCUTANEOUS W/ IMAGE REMOVAL CATARACT (PEM) ROTATOR CUFF REPAIR Bilateral Family History: Her family history is not on file. Social History: Her reports that she has never smoked. She has never used smokeless tobacco. She reports current alcohol use. She reports that she does not use drugs. Outpatient Medications Prior to Visit Medication Sig Dispense Refill Acetaminophen 325 MG tablet Take 2 tablets by mouth every 4 hours as needed for Mild Pain. 50 tablet 1 apixaban 2.5 MG tablet Take 2 tablets by mouth every 12 hours. Atenolol 50 MG tablet Take 1.5 tablets by mouth daily. am baclofen 10 MG tablet Take 1 tablet by mouth 3 times daily. NEEDED clarithromycin 500 MG tablet Take one tab one hour prior to dental procedure. 2 tablet 1 Docusate 100 MG capsule Take 1 capsule by mouth 2 times daily. 60 capsule 0 ESTRACE VAGINAL 0.1 MG/GM cream See Instructions, 42.5 gm, Refill(s) 3, apply pea size amount to urethra/inner vagina 3x/week x 1 month, then 2x/week for maintainence, [facility]/pharmacy #[id number], 165, cm, 02/11/23 10:41:00 EDT, Height/Length Dosing, 77.5, kg, 02/11/23 10:41:00 EDT, Weight Dosing Flecainide 50 MG tablet Take 1 tablet by mouth Twice daily. hydroCHLOROthiazide 25 MG tablet Take 1 tablet by mouth daily. Lisinopril 20 MG tablet Take 1 tablet by mouth daily. Multiple Vitamin (multivitamin) capsule Take 1 capsule by mouth daily. NON-FORMULARY Med Name:Neuveria vitamin 1 qd OMEPRAZOLE PO Take 20 mg by mouth daily. am oxyCODONE 5 MG tablet Take 1-2 tabs po q 4-6 hours prn pain. Wean as tolerated. 30 tablet 0 potassium chloride 10 MEQ Tab CR tablet ER Take 1 tablet by mouth daily. SUMAtriptan 25 MG tablet as needed. temazepam 15 MG capsule Take 2 capsules by mouth At bedtime as needed for Sleep. TROSPIUM CHLORIDE PO Take 20 mg by mouth 2 times daily (take before meals). No facility-administered medications prior to visit. Allergies: She is allergic to *adhesive tape, hydrocodone-acetaminophen, levofloxacin, cephalexin, latex, morphine, oxycodone, penicillins, and tramadol. documented in this encounter [facility] 07-23-2023 History of Presen t illness Narrative Ortho Nurse - Established Patient Intake Room#: pt here today for a 2 wk post op Rt ABD repair 07/08/23. Pt rates her pain on a scale of 2/10 today. Pt states she is doing well with no issues or concerns. She states she has not had much pain. Pt was in the ER on 07/13/23 with A-Fib and is doing a lot better now. Date: 07/23/2023 2:45 PM Patient: Bettie Burns MR#: [id number] : 1945 Age: 78 y.o. Referring Physician: Diivne Mahmood Insurance: Payor: MEDICARE AETNA HMO OR PPO / Plan: MEDICARE AETNA PPO / Product Type: *No Product type* / Chief Complaint Patient presents with Right Hip - Post Op Visit Visit Vitals Ht 1.651 m (5' 5 ) Wt 76.2 kg (168 lb) BMI 27.96 kg/m Pain Recent Labs Lab Results Component Value Date CRP 48.4 (H) 05/14/2023 Lab Results Component Value Date SEDRATE 7 06/25/2023 Lab Results Component Value Date WBC 6.6 2023 HGB 12.0 2023 HCT 33.6 (L) 2023 PLATELET 226 2023 MCV 94.2 2023 History Past Medical History: Diagnosis Date Stomach ulcer 2000 Arrhythmia a-fib Arthritis Essential hypertension, benign GERD (gastroesophageal reflux disease) Hematuria had it forever, it's just normal Migraine Past Surgical History: Procedure Laterality Date GLUTEUS MEDIUS TENDON REPAIR Right 07/07/2023 Laterality: Right; Surgeon: Miko Ohara MD; Location: [facility] OR REVISION ARTHROPLASTY HIP BOTH ACETABULAR & FEMORAL COMPONENTS Right 07/07/2023 Laterality: Right; Surgeon: Miko Ohara MD; Location: [facility] OR HIP REPLACEMENT 2021 ABLATION NERVE RADIOFREQUENCY PULSED 09/2018 for a-fib with [facility] APPENDECTOMY BREAST LUMPECTOMY FOOT SURGERY HEART CATHETERIZATION no stents NE ENDOMETRIAL CRYOABLATION REMOVAL BILIARY DUCT/GALLBLADDER CALCULI/DEBRIS PERCUTANEOUS W/ IMAGE REMOVAL CATARACT (PEM) ROTATOR CUFF REPAIR Bilateral Family History: Her family history is not on file. Social History: Her reports that she has never smoked. She has never used smokeless tobacco. She reports current alcohol use. She reports that she does not use drugs. Outpatient Medications Prior to Visit Medication Sig Dispense Refill Acetaminophen 325 MG tablet Take 2 tablets by mouth every 4 hours as needed for Mild Pain. 50 tablet 1 apixaban 2.5 MG tablet Take 2 tablets by mouth every 12 hours. Atenolol 50 MG tablet Take 1.5 tablets by mouth daily. am baclofen 10 MG tablet Take 1 tablet by mouth 3 times daily. NEEDED Docusate 100 MG capsule Take 1 capsule by mouth 2 times daily. 60 capsule 0 ESTRACE VAGINAL 0.1 MG/GM cream See Instructions, 42.5 gm, Refill(s) 3, apply pea size amount to urethra/inner vagina 3x/week x 1 month, then 2x/week for maintainence, [facility]/pharmacy #[id number], 165, cm, 02/11/23 10:41:00 EDT, Height/Length Dosing, 77.5, kg, 02/11/23 10:41:00 EDT, Weight Dosing hydroCHLOROthiazide 25 MG tablet Take 1 tablet by mouth daily. Lisinopril 20 MG tablet Take 1 tablet by mouth daily. Multiple Vitamin (multivitamin) capsule Take 1 capsule by mouth daily. NON-FORMULARY Med Name:Neuveria vitamin 1 qd OMEPRAZOLE PO Take 20 mg by mouth daily. am oxyCODONE 5 MG tablet Take 1-2 tabs po q 4-6 hours prn pain. Wean as tolerated. 30 tablet 0 potassium chloride 10 MEQ Tab CR tablet ER Take 1 tablet by mouth daily. SUMAtriptan 25 MG tablet as needed. temazepam 15 MG capsule Take 2 capsules by mouth At bedtime as needed for Sleep. TROSPIUM CHLORIDE PO Take 20 mg by mouth 2 times daily (take before meals). No facility-administered medications prior to visit. Allergies: She is allergic to *adhesive tape, hydrocodone-acetaminophen, levofloxacin, cephalexin, latex, morphine, oxycodone, penicillins, and tramadol. MRS Bettie Burns is 2 weeks s/p right Open Abductor repair with arthrex anchors She is progressing nicely in her recovery. She is TDWB with AL restrictions. She reports 2 out of 10 pain. She is using Tylenol only as needed for pain control and Eliquis for DVT prophylaxis. She reports the CANELO hose we provided bothered her feet so she is not wearing those today Physical Exam: Today on exam incision is healing nicely with global hip swelling, no erythema, drainage or evidence of dehiscence. Myiram intact. Calves are soft and nontender with negative Homans sign. ROM is full and supple with no pain or impingement the far limits were not tested due to the hip precautions and wb restrictions. Distal neurovascular exam is intact. Visit Vitals Ht 1.651 m (5' 5 ) Wt 76.2 kg (168 lb) BMI 27.96 kg/m Diagnostic study/interpretation: Plain films were obtained today and reveal a previous placed (2021) cementless total hip arthroplasty in good position and alignment with prior films. Right greater trochanter is consistent with recent anchor placement, no sign of obvious disruption. Assessment/Plan: 2 week postop open abductor repair arthrex anchors -Incision was cleansed with Betadine. [place] were removed without issue, steri strip placed. We reviewed incisional care instructions. No showering for 48 hours -Continue with DVT prophylaxis as prescribed. We discussed the importance of maintaining CANELO hose and alternatives to the ones we provided. -At this point I will continue the wb restrictions and hip precautions. She is not using abductor pillow, just regular pillows . I am okay with this and encouraged continued use x 1 week. -I have cautioned her against doing too much too soon. -Reviewed dental prophylaxis instructions, a prescription will be sent to her pharmacy. Follow up at 6 weeks postop unless an earlier need arises. All questions and concerrns were addressed at this visit. All pertinant portions of the clinical business support associate documentation was reviewed. Divine Mahmood I have reviewed the findings of the clinical business support associate and agree with their assessment. Divine Mahmood Ortho Nurse - Established Patient Intake Room#: pt here today for a 2 wk post op Rt ABD repair 07/08/23. Pt rates her pain on a scale of 2/10 today. Pt states she is doing well with no issues or concerns. She states she has not had much pain. Pt was in the ER on 07/13/23 with A-Fib and is doing a lot better now. Date: 07/23/2023 2:45 PM Patient: Bettie Burns MR#: [id number] : 1945 Age: 78 y.o. Referring Physician: Divine Mahmood Insurance: Payor: MEDICARE AETNA HMO OR PPO / Plan: MEDICARE AETNA PPO / Product Type: *No Product type* / Chief Complaint Patient presents with Right Hip - Post Op Visit Visit Vitals Ht 1.651 m (5' 5 ) Wt 76.2 kg (168 lb) BMI 27.96 kg/m Pain Recent Labs Lab Results Component Value Date CRP 48.4 (H) 05/14/2023 Lab Results Component Value Date SEDRATE 7 06/25/2023 Lab Results Component Value Date WBC 6.6 2023 HGB 12.0 2023 HCT 33.6 (L) 2023 PLATELET 226 2023 MCV 94.2 2023 History Past Medical History: Diagnosis Date Stomach ulcer 2000 Arrhythmia a-fib Arthritis Essential hypertension, benign GERD (gastroesophageal reflux disease) Hematuria had it forever, it's just normal Migraine Past Surgical History: Procedure Laterality Date GLUTEUS MEDIUS TENDON REPAIR Right 07/07/2023 Laterality: Right; Surgeon: Miko Ohara MD; Location: [facility] OR REVISION ARTHROPLASTY HIP BOTH ACETABULAR & FEMORAL COMPONENTS Right 07/07/2023 Laterality: Right; Surgeon: Miko Ohara MD; Location: [facility] OR HIP REPLACEMENT 2021 ABLATION NERVE RADIOFREQUENCY PULSED 09/2018 for a-fib with [facility] APPENDECTOMY BREAST LUMPECTOMY FOOT SURGERY HEART CATHETERIZATION no stents NE ENDOMETRIAL CRYOABLATION REMOVAL BILIARY DUCT/GALLBLADDER CALCULI/DEBRIS PERCUTANEOUS W/ IMAGE REMOVAL CATARACT (PEM) ROTATOR CUFF REPAIR Bilateral Family History: Her family history is not on file. Social History: Her reports that she has never smoked. She has never used smokeless tobacco. She reports current alcohol use. She reports that she does not use drugs. Outpatient Medications Prior to Visit Medication Sig Dispense Refill Acetaminophen 325 MG tablet Take 2 tablets by mouth every 4 hours as needed for Mild Pain. 50 tablet 1 apixaban 2.5 MG tablet Take 2 tablets by mouth every 12 hours. Atenolol 50 MG tablet Take 1.5 tablets by mouth daily. am baclofen 10 MG tablet Take 1 tablet by mouth 3 times daily. NEEDED Docusate 100 MG capsule Take 1 capsule by mouth 2 times daily. 60 capsule 0 ESTRACE VAGINAL 0.1 MG/GM cream See Instructions, 42.5 gm, Refill(s) 3, apply pea size amount to urethra/inner vagina 3x/week x 1 month, then 2x/week for maintainence, [facility]/pharmacy #[id number], 165, cm, 02/11/23 10:41:00 EDT, Height/Length Dosing, 77.5, kg, 02/11/23 10:41:00 EDT, Weight Dosing hydroCHLOROthiazide 25 MG tablet Take 1 tablet by mouth daily. Lisinopril 20 MG tablet Take 1 tablet by mouth daily. Multiple Vitamin (multivitamin) capsule Take 1 capsule by mouth daily. NON-FORMULARY Med Name:Neuveria vitamin 1 qd OMEPRAZOLE PO Take 20 mg by mouth daily. am oxyCODONE 5 MG tablet Take 1-2 tabs po q 4-6 hours prn pain. Wean as tolerated. 30 tablet 0 potassium chloride 10 MEQ Tab CR tablet ER Take 1 tablet by mouth daily. SUMAtriptan 25 MG tablet as needed. temazepam 15 MG capsule Take 2 capsules by mouth At bedtime as needed for Sleep. TROSPIUM CHLORIDE PO Take 20 mg by mouth 2 times daily (take before meals). No facility-administered medications prior to visit. Allergies: She is allergic to *adhesive tape, hydrocodone-acetaminophen, levofloxacin, cephalexin, latex, morphine, oxycodone, penicillins, and tramadol. documented in this encounter [facility] 07-17-2023 Miscellaneous Notes Dose confirmed with patient documented in this encounter [facility] 07-17-2023 Telephone encounter Note Dose confirmed with patient [facility] 07-15-2023 Miscellaneous Notes Pt called states had knee surgery July 06 was off her eliquis for 3 days prior then they decreased her dose 2.5 mg BID for several days. She is now having more SOB, sweaty at times and and very fatigued. I asked her if she felt bad enough to go to the ER and she said yes. Encouraged her to go to the ER and she was willing. slm documented in this encounter [facility] 07-15-2023 Telephone encounter Note Pt called states had knee surgery July 06 was off her eliquis for 3 days prior then they decreased her dose 2.5 mg BID for several days. She is now having more SOB, sweaty at times and and very fatigued. I asked her if she felt bad enough to go to the ER and she said yes. Encouraged her to go to the ER and she was willing. [facility] M[facility] AVS given to patient. All questions answered. Denies any questions and states she feels comfortable and confident with the information provided. Discharge instructions and education reviewed with pt, education provided for dx and new medications, printed education given, denies any questions, FAITH dressing remains in place with green light. IV and tele removed. Belongings gathered and patient discharged home with daughter and . DATE OF PROCEDURE: July 07, 2023 ATTENDING PHYSICIAN: Miko Ohara M.D. 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 PROCEDURE PERFORMED: Unlisted procedure of right hip and pelvis, dual-row suture anchor repair of 100% massive abductor tear of right hip, work equivalent similar to CPT 01178 Periarticular injection of right hip. ANESTHESIA: General. ANESTHESIOLOGIST: Per record. ESTIMATED BLOOD LOSS: 50 mL. COMPLICATIONS: None. INTRAVENOUS FLUIDS: Adequate. SPECIMENS: Fluid for culture. INSTRUMENTATION USED: Arthrex suture anchor 5.5 x 19.1 x 4 mm. INDICATIONS: Bettie is a 77-year-old female with a history of previous total hip arthroplasty at an outside institution. She has had progressively worsening pain, a limp, and weakness. Preoperative work-up is consistent with a massive abductor tear however some of her preoperative work-up was slightly concerning for the possibility of a co-infection along with this, so discussion was had before surgery that based off the intraoperative findings we will make a decision to revise the hip as well if prosthetic joint infection appeared obvious. She understood the complexity of the decision-making, the pros and cons of surgical management, and elected to proceed forward with operative intervention and for that reason was scheduled for the procedure for which she appears today. Upon arrival to the preoperative unit, the risks, benefits and alternatives were thoroughly re-explained, informed consent was verified, and the site was marked. After evaluation by Anesthesia and administration of the preoperative antibiotics, the patient was brought to the operating room. DESCRIPTION OF THE PROCEDURE: Upon arrival to the operating room, the patient was placed supine on the operative table, and general anesthetic was induced. She was then repositioned in the lateral decubitus position. All bony prominences were well padded. The right lower extremity was then elevated and prepped and draped in a sterile standard fashion. A proper timeout was performed. I began by utilizing the previous incision. I came down over the iliotibial band. I created a small plane here. I then split the iliotibial band in line with the original incision. As soon as I came through this, I encountered a garcia of sterile-appearing joint fluid and a massive abductor tear. There was 100% tearing of the abductors. There was suture over the trochanter from the previous surgery. A picture was taken at this time and loaded into the chart for reference. I proceeded to carefully debride and remove the suture. I removed the fluid from deep around the hip implant and analyzed it. Gross analysis demonstrated a clear, normal-appearing synovial fluid so I proceeded then at this point with isolated reconstruction of the abductor. The tip of the greater trochanter was decorticated. The abductor was chronically split and migrated medially and proximally. I then spent a moderate amount of time mobilizing the abductor mechanism from the IT band as well as from the deep capsular scar tissue layer. Once I had adequately defined and mobilized this tissue, I then created a proximal row of suture anchors, two 5.5 x 19.1 mm anchors, each loaded with 2 FiberTapes. This was placed into the tip of the greater trochanter. The leg was then brought into abduction and internal rotation. The suture from these anchors was passed starting posterosuperiorly and working around to the anteroinferior portion of the abductor tendon. I then created a best-fit position for the second lateral row anchor with each of the 4 sutures from the anterior and posterior proximal anchors. Once the best-fit position was placed, the punch and tap were used. Additional anchors were opened up. The abductor was then completely reduced back to the tip of the greater trochanter, affording complete coverage as well as by bringing the vastus up. A final picture was taken and loaded to the chart. I then turned my attention towards wound closure. The wound was irrigated, soaked with Betadine, and irrigated further. The periarticular injection was administered. The IT band was closed with #2 Quill, multiple rows of 0-Vicryl and 0-Quill for the subcuticular layer, and myriam for the skin. The extremity was cleansed. The patient was woken up from the anesthetic, extubated, and taken to the postoperative care unit in stable condition. POSTOPERATIVE PLAN OF CARE: Touch-down weightbearing with no active abduction and anterolateral hip precautions for a minimum of 6 weeks, with a hip abductor pillow in place at night and during periods of rest for the first 3 weeks. Antibiotics for 24 hours postop. DVT prophylaxis, both mechanical and chemical. Follow up in the office in 2-3 weeks. Staple removal in 10-14 days. This is billed as an unlisted procedure. There is no code that accurately depicts the nature of the abductor repair. The perioperative work required and the postoperative care is most similar to a total hip arthroplasty. We will bill it as a CPT similar to that, 84558. ATTENDING/ASSISTING PARTICIPATION: This operation could not have been safely performed (without compromising the technical results or length of the procedure) without the assistance of a skilled surgical coordinator. A surgical coordinator was medically necessary for positioning, retraction and instrumentation. Assessment remains unchanged from previous. Neuro checks WN, abductor pillow in place. Call light within reach. Assessment remains unchanged from previous. Neuro checks WNL, abductor pillow in place. Denies futher needs, call light within reach. Arrived to room 3761 from PACU. Bedside report received from RICARDO Jacobo. Oriented to room and provided call light. Admission assessment, head to toe and post op vitals initiated. Fresh ice water and crackers provided. Family members accompanying patient, denies additional needs, call light in reach. FAITH intact flashing green. POST OPERATIVE/PROCEDURE NOTE Bettie Burns 77 y.o. female [id number] SURGEON Surgeons and Role: * Miko Ohara MD - Primary SPUD GRADER Paula Fitzpatrick APRN-AUSTEN ANESTHESIOLOGIST CERTIFIED CAREGIVER: Chance Ngo CRNA; PALAK Barrett SURGICAL STAFF Edge Dyer: Kisha Karimi RN; Whit oGvea, RICARDO Nurse Practitioner: Paula Fitzpatrick APRN-AUSTEN Scrub Person: Chi Goldberg RN; Naomi Maier, RICARDO; Daryl Duran; Hao Rose LPN PROCEDURE PERFORMED Procedure(s) (LRB): OPEN ABDUCTOR TEAR REPAIR (Right) VS TOTAL HIP REVISION *LATEX ALLERGY* (Right) R hip periarticular injection PRIMARY CLOSURE yes ANESTHESIA (type of) General ESTIMATED BLOOD LOSS 50 DRAINS none BLOOD PRODUCTS None PRE OPERATIVE DIAGNOSIS Tear of rotator cuff of right hip, initial encounter [S76.011A] 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, initial encounter [T84.090A] POST OPERATIVE DIAGNOSIS Tear of rotator cuff of right hip, initial encounter [S76.011A] 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, initial encounter [T84.090A] FINDINGS See op note CONDITION OF PATIENT Stable COMPLICATION No complications GRAFTS AND/OR IMPLANTS Implant Name Type Inv. Item Serial No. 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 No. Used Action ANCHORS, 5.5 NON PUNCHING - [id number] ANCHORS, 5.5 NON PUNCHING HIST ARTHREX [id number] Right 1 Implanted ANCHORS, 5.5 NON PUNCHING - [id number] ANCHORS, 5.5 NON PUNCHING HIST ARTHREX [id number] Right 3 Implanted SPECIMENS ID Type Source Tests Collected by Time Destination A : Right hip incisional fluid (1-2) (Anaerobic & Aerobic) Fluid/Swab - Other SURGICAL WOUND ANAEROBE CULTURE Miko Ohara MD 07/07/2023 1427 B : Right hip fluid (cell count, defferential, & culture) Fluid, Unspecified FLUID, UNSPECIFIED BODY FLUID CELL COUNT Miko Ohara MD 07/07/2023 1429 C : Right hip suture (1-3) (Anaerobic & Aerobic) Surgical Wound SURGICAL WOUND FUNGUS CULTURE, ACID FAST CULTURE, ANAEROBE CULTURE Miko Ohara MD 07/07/2023 1434 Paula Fitzpatrick APRN-GOVERNMENT TEACHER July 07, 2023 3:28 PM Unable to doppler right dorsalis pedis pulse. documented in this encounter [facility] 2023 Nurse Note AVS given to patient. All questions answered. Denies any questions and states she feels comfortable and confident with the information provided. Discharge instructions and education reviewed with pt, education provided for dx and new medications, printed education given, denies any questions, FAITH dressing remains in place with green light. IV and tele removed. Belongings gathered and patient discharged home with daughter and . [facility] 2023 Hospital Discharg e instructions Carmen Sebastian RN - 2023 12:10 PM EST You have been given printed educational handouts on all new medications. Please refer to your green discharge folder for handouts. You have been given seven ABD pads, one ice gel compression wrap, six ice gel packs, two pairs of CANELO hose and all personal belongings. If at any time you have questions please refer to your green discharge folder with all at home care instructions. Canelo Hose: > Help reduce the risk of blood clots and decrease swelling > To be worn bilaterally to the lower extremities for 30 days post-op > You are able to take your CANELO hose off for 1 hour for every 8 hours that they wear them Medications: > You have been sent home with prescriptions, including medication for pain to be taken as directed. Stay ahead and do not allow your pain to get out of control. > If prescribed Aspirin, take twice a day for 30 days. Do not skip a dose, this is your medication for the prevention of blood clots. > If you have not had a bowel movement by your 3rd post-operative day you will need to use a gentle over the counter laxative such as Milk of magnesia, Fiberlax, Miralax, etc. Bowels need to move within 3 days or take action. Gel Ice Packs > Change every 4 hours or as needed for swelling and pain for at least the first 2 weeks Ambulation > Weight bearing status : Toe touch weight bearing to right lower extremity. Right Abduction Tear Repair Global Hip Precautions: - Do not allow you hip to flex more than 90 degrees - Do not move your leg past the middle of your body - Do not allow your leg to roll outward (external rotation) - Do not allow your leg to roll inward (internal rotation) - Do not take long strides when walking - Do not use surgical leg to lift buttocks in bed - Do not lie in a completely flat bed - Do not lie on your stomach - Do not use the strength of your leg muscles to move your surgical leg to the side Remember... - Keep your leg in a position that is in line with your body at all times - Use a leg cell room supervisor to get in and out of bed Anesthesia Precautions & Expectations: After anesthesia, rest for [address], drink alcoholic beverages or make any important decisions during this time. General anesthesia may cause a sore throat, jaw discomfort or muscle aches. These symptoms can last for one or two days. If you have been discharged the same day as surgery, Dr. Ohara's office will call you the morning after your discharge to follow up with how your recovery is progressing at home. STINE Sebastian RN - 2023 12:04 PM EST Ambulate with wheeled walker until follow up appointment or directed by Dr. Ohara. Toe touch weight bearing to right lower extremity. Abductor pillow to be in place when in bed or sleeping. STINE Sebastian RN - 2023 12:01 PM EST Contact Office ([phone]) if: > Any falls or injuries > Redness, drainage or swelling at the incision site that is out of the ordinary from post-operative findings (minor redness, swelling and warmth around the entire knee are common post-operatively) > Patient non-compliance with assistive devices during gait > Fever > 101 degrees. For low grade fevers use Incentive Spirometry @ 10 puffs per hour and tylenol as directed. STINE Sebastian RN - 2023 12:03 PM EST You have been given an educational handout on your FAITH dressing that is covering your incision. You will remove this dressing on Thursday morning, 07/14/23. Gently peel back the dressing while holding the skin taught. Do not rip or quickly pull off dressing. Once the dressing is removed you will discard the dressing, tubing and battery pack in the trash. Once your FAITH dressing is removed you will place an ABD over your incision for comfort. When applying your new ABD pad as a reminder do not place any tape over your ABD pad. Your boxer briefs are to hold your pad in place. Your incision is closed with myriam. These are to be removed at your post-op appointment in Dr. Ohara's office, 10-14 days after surgery. Your surgery date was 07/07/23. Do not get your incision wet until after your myriam have been removed. Once the myriam have been removed and you are able to shower do not saturate or submerge extremity in water (i.e. Bathtub, hot tub, etc.) until cleared by the provider. Do not wash/scrub directly over/on your incision. Pat your incision dry do not rub your incision with a towel. Do not place any lotions, ointments, creams or powder on your incision or operative leg. documented in this encounter [facility] 2023 History of Presen t illness Narrative Patient was assessed [facility] on 06/25/23. Met with patient for follow up after surgery to discuss discharge plan. Patient plans to return home with family and no needs at discharge. She reports that she will have her , as well as two daughters who will be assisting her. Patient has a wheeled walker and denies any equipment needs at this time. Nursing reports that the incision has been closed with myriam, will request a 10-14 day follow up appointment for staple removal in the office. Patient informed of post-op follow up call tomorrow. Patient instructed on Meds to Beds. Patient denies any other questions or needs at this time. Follow up appointment scheduled for 07/23/23 @ 2:30 pm. Total Joint Progress Note P O DAY # 1 PROCEDURE: Right Abductor Tear Repair SUBJECTIVE: No new symptoms or complaints PAIN RATIN/10 OBJECTIVE: Lab Results Component Value Date WBC 6.6 2023 HGB 12.0 2023 HGB 15.0 06/25/2023 HCT 33.6 (L) 2023 HCT 43.9 06/25/2023 PLATELET 226 2023 MCV 94.2 2023 Lab Results Component Value Date SODIUM 134 (L) 2023 POTASSIUM 3.8 2023 CHLORIDE 103 2023 CO2 30 2023 BUN 30 (H) 2023 BUN 31 (H) 06/25/2023 CREATSERUM 1.10 2023 CREATSERUM 1.10 06/25/2023 GLUCOSE 141 (H) 2023 Vital Signs: Vitals: 07/08/23 0404 BP: 103/58 Pulse: 75 Resp: 17 Temp: 96.7 F (35.9 C) SpO2: 98% Patient is alert and oriented times three. Abdomen: Soft, non-tender without organomegaly and bowel sounds are active Vascular: Dorsalis pedis/posterior tibial pulses RIGHT/LEFT/BILATERAL: Bilateral NORMAL / ABNORMAL (RESULT): Normal Neuro: Intact/deficit: intact to light touch Wound Appearance: DESCRIPTION; WOUND: incision Erythema: PRESENT OR ABSENT: absent Drainage none Dressing: Clean/dry/intact FAITH in place DVT Screening Exam: Calves soft/non-tender Canelo hose: PRESENT OR ABSENT: present Foot pumps/ SCD's: PRESENT OR ABSENT: present Hemovac Drain Output: N/a mL/last shift Physical Therapy: Gait Distance: 15 Feet: ASSESSMENT: s/p Right Abductor Muscle Repair, POD#1, doing well. PLAN: PT/OT IV antibiotics DVT prophylaxis Discharge planning DISCHARGE PLANNING: plans; post hospital: SEE SS NOTES 07/07/23 1800 Time In/Out Time In 1800 Time Out 1836 Total Visit Time 36 minutes Initial Evaluation/Screen Completed? yes General Information RN Approved Intervention as tolerated Admitting Diagnosis right abductor tear Surgical Procedure right abductor repair Past Surgical History Past Surgical History: Procedure Laterality Date HIP REPLACEMENT 2021 ABLATION NERVE RADIOFREQUENCY PULSED 09/2018 for a-fib with [facility] APPENDECTOMY BREAST LUMPECTOMY FOOT SURGERY HEART CATHETERIZATION no stents NE ENDOMETRIAL CRYOABLATION REMOVAL BILIARY DUCT/GALLBLADDER CALCULI/DEBRIS PERCUTANEOUS W/ IMAGE REMOVAL CATARACT (PEM) ROTATOR CUFF REPAIR Bilateral Past Medical History Past Medical History: Diagnosis Date Arrhythmia a-fib Arthritis Essential hypertension, benign GERD (gastroesophageal reflux disease) Hematuria had it forever, it's just normal Migraine Stomach ulcer 2000 Existing Precautions/Restrictions fall;hip;weight bearing (TTWB, global hip precautions, no active hip abduction, pillow) Previous Level of Function Bed Mobility/Transfers independent Bathing independent Upper Body Dressing independent Lower Body Dressing independent Grooming independent Toileting independent Eating independent Home Management Skills independent General Pain Documentation (Adult, OB, Peds) Presence of Pain complains of pain/discomfort Pain Location hip, right Pain Management Interventions cold application Select Pain Scale (4/10) Home Setting Residence House Lives With spouse First floor setup bedroom;walk-in shower;grab bars Number of Stairs to Enter Home 3 Number of Stairs Within Home 0 Equipment Available wheeled walker;elevated toilet seat;shower chair;fish culturist Cognitive Status Examination Orientation Status (Cognition) oriented x 4 Level of Consciousness alert Able to Follow Commands (Communication) WFL Personal Safety and Judgment intact Vision Screen Currently wearing corrective lenses Yes Sensory Examination Sensory Examination WFL Range of Motion (ROM) Range of Motion Examination bilateral upper extremity ROM was WFL Manual Muscle Testing (MMT) Dominant Hand right Bed Mobility Skill: Supine to Sit, Rehab Eval Level of [place]: Supine/Sit stand-by assist Physical Assist/Nonphysical Assist: Supine/Sit 1 person assist Transfer Skill: Sit to Stand, Rehab Eval Level of [place]: Sit/Stand contact guard Physical Assist/Nonphysical Assist: Sit/Stand 1 person assist Weight-Bearing Restrictions: Sit/Stand toe touch weight-bearing Assistive Device for Transfer: Sit/Stand wheeled walker Upper Body Dressing Level of [place] independent Physical Assist/Nonphysical Assist set-up required Lower Body Dressing Level of [place] maximum assist (25% patients effort) Physical Assist/Nonphysical Assist 1 person assist Assistive Device fish culturist General Therapy Interventions Planned Therapy Interventions (OT Eval) ADL retraining;balance training;transfer training Clinical Impression Co-evaluation/co-treatment performed? Yes, combination of simultaneous billable and individual billable skilled care was necessary due to medical complexity and functional deficits Patient Instruction/Education comments Pt instructed on LB dressing techniques donning underwear and shorts min assist in sitting and standing with training on use of fish culturist to maintain hip precautions Rehab Potential (OT Eval) good Therapy Frequency 7 times a week Today's Treatment Included pt is doing well post op, she is alert and following directions well. She demonstrates good safety awareness during functional mobility and transfer training following initial instruction. Pt reports her daughter will be over to assist at home, Continue care plan yes Goals Goals For Discharge Pt will return home Discussed risk / benefits with patient Therapist Recommendations At Discharge Recommendations OT Services not recommended at Discharge Plan Plan for next session continue with AE training for bathing, dressing, bathroom transfers and hygiene training Therapist Information License # [id number] 1. Pt will complete LB dressing SBA 2. Pt will complete sponge bathing min assist 3. Pt will complete toileting MOD I 4. Pt will complete hygiene/grooming standing at sink MOD I 5. Pt will complete walk in shower transfer CGA 07/07/23 1753 Time In/Out Time In 1753 Time Out 1822 Total Visit Time 29 minutes PT Therapy Completed Yes Initial Evaluation/Screen Completed? yes General Information RN Approved Intervention as tolerated Diagnosis Tear of rotator cuff of right hip Surgical Procedure R abductor repair Past Medical History Past Medical History: Diagnosis Date Arrhythmia a-fib Arthritis Essential hypertension, benign GERD (gastroesophageal reflux disease) Hematuria had it forever, it's just normal Migraine Stomach ulcer 2000 Past Surgical History Past Surgical History: Procedure Laterality Date HIP REPLACEMENT 2021 ABLATION NERVE RADIOFREQUENCY PULSED 09/2018 for a-fib with [facility] APPENDECTOMY BREAST LUMPECTOMY FOOT SURGERY HEART CATHETERIZATION no stents NE ENDOMETRIAL CRYOABLATION REMOVAL BILIARY DUCT/GALLBLADDER CALCULI/DEBRIS PERCUTANEOUS W/ IMAGE REMOVAL CATARACT (PEM) ROTATOR CUFF REPAIR Bilateral Existing Precautions/Restrictions fall;hip;weight bearing (Global hip precautions, no active hip abd, TTWB on the R LE) Right Lower Extremity toe touch weight bearing Home Setting Residence House Lives With spouse First floor setup bedroom Number of stairs to enter home 3 with rail Mobility Equipment Available 2 wheeled walker;straight cane Previous Level of Function Ambulation Skills independent Assistive Device none used Level of Ambulation community General Pain Documentation (Adult, OB, Peds) Presence of Pain complains of pain/discomfort Pain Location hip, right Pain Management Interventions activity minimized Select Pain Scale (4/10) Cognitive Status Examination Orientation Status (Cognition) oriented x 4 Level of Consciousness alert Able to Follow Commands (Communication) WFL Personal Safety and Judgment intact Range of Motion (ROM) Range of Motion Examination bilateral lower extremity ROM was WFL Manual Muscle Testing (MMT) Manual Muscle Testing Results deficits as listed below (R hip 4/5) Bed Mobility Skill: Supine to Sit, Rehab Eval Level of [place]: Supine/Sit stand-by assist Physical Assist/Nonphysical Assist: Supine/Sit 1 person assist Transfer Skill: Sit To Stand, Rehab Eval [place] (Sit-Stand Transfers) contact guard Physical Assist/Nonphysical Assist: Sit/Stand 1 person assist Weight-Bearing Restrictions: Sit/Stand toe touch weight-bearing Assistive Device For Transfer: Sit/Stand 2 wheeled walker Gait Skills, PT Eval Level of [place]: Gait contact guard Physical Assist/Nonphysical Assist: Gait 1 person assist Weight-Bearing Restrictions: Gait toe touch weight-bearing Assistive Device For Transfer: Gait 2 wheeled walker Gait Distance 15 feet Gait Analysis, PT Eval Gait Pattern Used swing-to gait Balance Additional Documentation (Seated: Good; Standing: Fair-) Sensory Examination Sensory Examination WFL Plan of Care Interventions Planned Therapy Interventions bed mobility training;edema control;endurance;gait training;strengthening;transfer training Additional Comments Pt educated on hip precautions, use of leg cell room supervisor and weight bearing status. Pt educated to only perform ankle pumps and quad sets on the operative leg. Pt educated on sequencing for transfers and gait using FWW to maintain TTWB. Pt able to maintain weight bearing status well. Distance limited due to fatigue. Assessment Assessment Narrative Pt is a 77 year old female s/p R abductor repair. Pt is doing well post op with minimal complaints of pain. Pt following instructions well and is able to maintain weight bearing status with mobility. Pt is expected to continue to improve and will be safe to return home. Discharge Recommendations Pt to return home with HEP. Clinical Impression Co-evaluation/co-treatment performed? Yes, combination of simultaneous billable and individual billable skilled care was necessary due to medical complexity and functional deficits Criteria for Skilled Therapeutic Interventions Met (PT Eval) yes, treatment indicated Impairments Found (PT Eval) Strength;Balance;Transfers;Gait/ Locomotion;Edema;Aerobic capacity/endurance Rehab Potential (PT Eval) good Therapy Frequency 7 times a week PT Therapies Still to Complete 5 Continue care plan yes Today's Treatment Included PT evaluation, ther ex, gait and patient education Therapist Recommendations At Discharge Recommendations PT Services not recommended at Discharge Plan Plan for next session Next visit review precautions, progress mobility, practice car transfers and steps as able, and review/perform HEP. PT Goals: 1. Pt will demonstrate understanding of all precautions during functional mobility. 2. Pt will perform all transfers with FWW and SBA to improve safety at home. 3. Pt will ambulate 75ft with FWW and SBA. 4. Pt will ambulate up and down 3 steps with CGA. 5. Pt will be independent with HEP per protocol. THIS PATIENT HAS HAD ORTHOPEDIC SURGERY AND IS EXPECTED TO HAVE PAIN REQUIRING NARCOTICS FOR >7 DAYS AND MAY NEED UP TO 12 tabs of oxycodone PER DAY AND THEREFORE 30tabs ARE BEING DISPENSED IN ACCORDANCE WITH POC DISCUSSED WITH DR OHARA. documented in this [facility] 2023 Hospital course Narrative Images from the original note were not included. Discharge Summary Name: Bettie Burns Age: 78 y.o. Birthday: 1945 Admit Date: 07/07/2023 9:13 AM Discharge Date: 07/08/23 Discharge Time: midday Discharge Unit: Med/Surg Admission Information Admitting Physician: Miko Ohara MD Discharge Information Discharge Physician: Chance Mahoney MD Problem List There are no hospital problems to display for this patient. Brief Summary of Hospital Course for Discharge Summary: Patient is a 77 year old female who presents for revision total hip arthroplasty. She is doing well postoperatively. She has ambulated and voided. Pain is adequately controlled. Denies chest pain, palpitations, cough, sputum, shortness of breath, nausea, vomiting, lower extremity edema. Therapy going well. Known paroxysmal atrial fibrillation. Currently in normal sinus rhythm. Known high blood pressure. she is feeling well. There are no complaints relative to her blood pressure. Patient is compliant with medications. she denies any side effects from medications. she denies chest pain, SOB, PELAYO, palpitations, orthopnea, PND, edema, headache, focal neurologic complaints, claudication. Known overactive bladder. Symptoms well controlled. Known impaired fasting glucose. Watching diet only. Hemoglobin A1c only minimally elevated. General: No fever, chills, weight loss. HEENT: No sinus pain, ear pain, sore throat. Neck: No LAD. Lungs: No cough, sputum, pleuritic pain, hemoptysis, SOB. CV: No chest pain, palpitation, orthopnea, PND, edema. GI: No abd pain, nausea, vomiting, diarrhea, constipation, melena, hematochezia. : No dysuria, frequency, hematuria. Skin: No rash or lesion. Neuro: No mental status changes, headache, focal neurologic complaints. Objective: Blood pressure 103/58, pulse 75, temperature 96.7 F (35.9 C), temperature source Temporal, resp. rate 17, height 1.651 m (5' 5 ), weight 76.4 kg (168 lb 6.4 oz), SpO2 98%. Results for orders placed or performed during the hospital encounter of 07/07/23 SCREEN: MRSA ONLY, NARES (ISOLATION SCREEN) Specimen: NARES; E-Swab Result Value Ref Range SCREEN: MRSA NEGATIVE NEGATIVE STAPHYOCOCCUS AUREUS BY PCR NEGATIVE NEGATIVE CBC, EDIF, PLATELET Result Value Ref Range WBC (WHITE BLOOD COUNT) 6.6 3.6 - 11.0 10*3/uL RBC 3.57 (L) 4.0 - 5.4 10*6/uL HEMOGLOBIN (HGB) 12.0 12.0 - 16.0 G/DL HEMATOCRIT (HCT) 33.6 (L) 36.0 - 48.0 % MEAN CELL VOLUME 94.2 80.0 - 100.0 FL Mean Cell HGB 33.6 26.0 - 35.0 PG MEAN CELL HGB CONCENTRATION 35.6 27.0 - 37.0 G/DL RBC DISTRIBUTION 13.2 11.5 - 14.5 % PLATELET COUNT 226 130 - 400 10*3/uL MEAN PLATELET VOLUME 7.0 (L) 7.4 - 11.0 FL DIFFERENTIAL TYPE AUTO DIFF % NEUTROPHILS 79.0 (H) 37.0 - 75.0 % LYMPHOCYTE 16.4 (L) 20.0 - 55.0 % MONOCYTE % 4.3 0.0 - 10.0 % EOSINOPHIL % 0.0 0.0 - 11.0 % BASOPHIL % 0.3 0.0 - 2.0 % Absolute Neutrophil Count 5.2 1.4 - 6.5 10*3/uL LYMPHOCYTES, ABSOLUTE 1.1 (L) 1.2 - 3.4 10*3/uL MONOCYTES, ABSOLUTE 0.3 0.0 - 0.7 10*3/uL ABSOLUTE EOSINOPHIL COUNT 0.0 0.0 - 0.7 10*3/uL ABSOLUTE BASOPHIL COUNT 0.0 0.0 - 0.2 10*3/uL BASIC METABOLIC PANEL Result Value Ref Range Glucose 141 (H) 70 - 100 MG/DL BUN 30 (H) 7 - 20 MG/DL CREATININE SERUM 1.10 0.70 - 1.20 MG/DL SODIUM 134 (L) 137 - 145 MMOL/L POTASSIUM 3.8 3.5 - 5.1 MMOL/L CHLORIDE 103 98 - 107 MMOL/L CARBON DIOXIDE (CO2) 30 22 - 30 MMOL/L ANION GAP 1 MMOL/L CALCIUM 8.7 8.4 - 10.2 MG/DL ESTIMATED GFR, NON AMER 51 ml/min/1.73sq.m ESTIMATED GFR, 62 ml/min/1.73sq.m GFR COMMENT Average GFR for 70+ years old = 75. REPEAT ABO/RH (D) TYPING Result Value Ref Range ABO/RH(D) A POSITIVE BODY FLUID CELL COUNT Result Value Ref Range FLUID TYPE SYNOVIAL FLUID FLUID APPEARANCE HAZY WBC, FLUID 57 /CMM Red Blood Cells (Fluid) 3,376 /CMM Body Fluid Color LIGHT YELLOW DIFFERENTIAL, FLUID Result Value Ref Range FLUID NEUTROPHILS 16 % LYMPHS, FLUID 22 % Monocytes/Macrophages, Fluid 48 % MESOTHELIAL CELLS, FLUID 8 % EOSINOPHILS, FLUID 4 % BASOPHILS, FLUID 2 % HEENT: NC/AT, PERRLA, EOMI, fundi benign, external ears normal, OP normal. Neck: No LAD/thyromegaly. No JVD/bruit. Lungs: Clear to auscultation bilaterally. No wheezes, rales, ronchi. Heart: RRR. No S3/S4. Abdomen: Soft, NT/ND, normal bowel sounds, no HSM, no bruits. Extremities: No clubbing, cyanosis, edema. Normal pulses. Neurologic: CN II-XII intact. Strength/DTR's/sensation symmetric. Cerebellar function normal. Skin: No rash or suspicious lesions. Musculoskeletal: No edema, redness, warmth, deformities. Psychiatric: Alert and oriented. Affect and mood normal. Assessment and Plan: Postop day 1 revision total hip arthroplasty - medically stable for discharge. Paroxysmal atrial fibrillation - continue home medication and monitor on telemetry. In normal sinus rhythm overnight. Hypertension - continue home medication, monitor ambulatory blood pressure. Overactive bladder - resume home medication upon discharge. Impaired fasting glucose - carb controlled diet. 35 minutes total time. Chance Mahoney MD 2023 Brief Summary of Consults for Discharge Summary: Brief Summary of Procedures and Imaging for Discharge Summary: Summary of last selected lab results and date obtained: Lab Results Component Value Date WBC 6.6 2023 HGB 12.0 2023 HCT 33.6 (L) 2023 PLATELET 226 2023 MCV 94.2 2023 Lab Results Component Value Date SODIUM 134 (L) 2023 POTASSIUM 3.8 2023 CHLORIDE 103 2023 CO2 30 2023 BUN 30 (H) 2023 CREATSERUM 1.10 2023 GLUCOSE 141 (H) 2023 Lab Results Component Value Date ALT 22 06/25/2023 AST 32 06/25/2023 ALKPHOS 54 06/25/2023 BILITOTAL 0.5 06/25/2023 Brief Summary of Labs for Discharge Summary: No discharge procedures on file. Current Outpatient Meds: Medication List for when you go home START taking these medications Morning Afternoon Evening Bedtime As Needed Acetaminophen 325 MG tablet Take 2 tablets by mouth every 4 hours as needed for Mild Pain. Commonly known as: TYLENOL Last time this was given: 1,000 mg on 2023 6:07 AM cephALEXin 500 MG CAPS Take 1 capsule by mouth every 8 hours for 7 days. Commonly known as: KEFLEX Docusate 100 MG CAPS Take 1 capsule by mouth 2 times daily. Commonly known as: COLACE Last time this was given: 100 mg on July 07, 2023 6:18 PM oxyCODONE 5 MG TABS Take 1-2 tabs po q 4-6 hours prn pain. Wean as tolerated. Commonly known as: ROXICODONE For diagnoses: Acute postoperative pain of right hip Last time this was given: 10 mg on July 07, 2023 9:03 PM CHANGE how you take these medications Morning Afternoon Evening Bedtime As Needed * Eliquis 2.5 MG TABS Take 1 tablet by mouth every 12 hours for 5 days. Then resume dose per pre-op routine What changed: You were already taking a medication with the same name, and this prescription was added. Make sure you understand how and when to take each. Generic drug: apixaban * apixaban 2.5 MG TABS Take 2 tablets by mouth every 12 hours. Commonly known as: ELIQUIS What changed: Another medication with the same name was added. Make sure you understand how and when to take each. * The same medication is listed twice. Please discuss with your provider. CONTINUE taking these medications Morning Afternoon Evening Bedtime As Needed Atenolol 50 MG TABS Take 1.5 tablets by mouth daily. am Commonly known as: TENORMIN baclofen 10 MG TABS Take 1 tablet by mouth 3 times daily. NEEDED Commonly known as: LIORESAL ESTRACE VAGINAL 0.1 MG/GM cream See Instructions, 42.5 gm, Refill(s) 3, apply pea size amount to urethra/inner vagina 3x/week x 1 month, then 2x/week for maintainence, [facility]/pharmacy #[id number], 165, cm, 02/11/23 10:41:00 EDT, Height/Length Dosing, 77.5, kg, 02/11/23 10:41:00 EDT, Weight Dosing Generic drug: estradiol hydroCHLOROthiazide 25 MG TABS Take 1 tablet by mouth daily. Commonly known as: HYDRODIURIL Lisinopril 20 MG TABS Take 1 tablet by mouth daily. Commonly known as: PRINIVIL multivitamin CAPS Take 1 capsule by mouth daily. NON-FORMULARY Med Name:Neuveria vitamin 1 qd OMEPRAZOLE PO Take 20 mg by mouth daily. am potassium chloride 10 MEQ tab ER tablet ER Take 1 tablet by mouth daily. Commonly known as: KLOR-CON SUMAtriptan 25 MG TABS as needed. Commonly known as: IMITREX temazepam 15 MG CAPS Take 2 capsules by mouth At bedtime as needed for Sleep. Commonly known as: RESTORIL TROSPIUM CHLORIDE PO Take 20 mg by mouth 2 times daily (take before meals). STOP taking these medications Aspirin 325 MG TABS potassium & sodium phosphates 280-160-250 MG PACK Follow-up: No follow-up provider specified. Upcoming Appointments (up to five)-Some appointments for Medical Center outpatient clinics or diagnostic testing locations are not displayed below Provider Department Dept Phone 07/23/2023 2:30 PM Divine Mahmood [facility] [phone] documented in this encounter [facility] 2023 Surgery Postoperative evaluation and management note DATE OF PROCEDURE: July 07, 2023 ATTENDING PHYSICIAN: Miko Ohara M.D. 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 PROCEDURE PERFORMED: Unlisted procedure of right hip and pelvis, dual-row suture anchor repair of 100% massive abductor tear of right hip, work equivalent similar to CPT 23443 Periarticular injection of right hip. ANESTHESIA: General. ANESTHESIOLOGIST: Per record. ESTIMATED BLOOD LOSS: 50 mL. COMPLICATIONS: None. INTRAVENOUS FLUIDS: Adequate. SPECIMENS: Fluid for culture. INSTRUMENTATION USED: Arthrex suture anchor 5.5 x 19.1 x 4 mm. INDICATIONS: Bettie is a 77-year-old female with a history of previous total hip arthroplasty at an outside institution. She has had progressively worsening pain, a limp, and weakness. Preoperative work-up is consistent with a massive abductor tear however some of her preoperative work-up was slightly concerning for the possibility of a co-infection along with this, so discussion was had before surgery that based off the intraoperative findings we will make a decision to revise the hip as well if prosthetic joint infection appeared obvious. She understood the complexity of the decision-making, the pros and cons of surgical management, and elected to proceed forward with operative intervention and for that reason was scheduled for the procedure for which she appears today. Upon arrival to the preoperative unit, the risks, benefits and alternatives were thoroughly re-explained, informed consent was verified, and the site was marked. After evaluation by Anesthesia and administration of the preoperative antibiotics, the patient was brought to the operating room. DESCRIPTION OF THE PROCEDURE: Upon arrival to the operating room, the patient was placed supine on the operative table, and general anesthetic was induced. She was then repositioned in the lateral decubitus position. All bony prominences were well padded. The right lower extremity was then elevated and prepped and draped in a sterile standard fashion. A proper timeout was performed. I began by utilizing the previous incision. I came down over the iliotibial band. I created a small plane here. I then split the iliotibial band in line with the original incision. As soon as I came through this, I encountered a garcia of sterile-appearing joint fluid and a massive abductor tear. There was 100% tearing of the abductors. There was suture over the trochanter from the previous surgery. A picture was taken at this time and loaded into the chart for reference. I proceeded to carefully debride and remove the suture. I removed the fluid from deep around the hip implant and analyzed it. Gross analysis demonstrated a clear, normal-appearing synovial fluid so I proceeded then at this point with isolated reconstruction of the abductor. The tip of the greater trochanter was decorticated. The abductor was chronically split and migrated medially and proximally. I then spent a moderate amount of time mobilizing the abductor mechanism from the IT band as well as from the deep capsular scar tissue layer. Once I had adequately defined and mobilized this tissue, I then created a proximal row of suture anchors, two 5.5 x 19.1 mm anchors, each loaded with 2 FiberTapes. This was placed into the tip of the greater trochanter. The leg was then brought into abduction and internal rotation. The suture from these anchors was passed starting posterosuperiorly and working around to the anteroinferior portion of the abductor tendon. I then created a best-fit position for the second lateral row anchor with each of the 4 sutures from the anterior and posterior proximal anchors. Once the best-fit position was placed, the punch and tap were used. Additional anchors were opened up. The abductor was then completely reduced back to the tip of the greater trochanter, affording complete coverage as well as by bringing the vastus up. A final picture was taken and loaded to the chart. I then turned my attention towards wound closure. The wound was irrigated, soaked with Betadine, and irrigated further. The periarticular injection was administered. The IT band was closed with #2 Quill, multiple rows of 0-Vicryl and 0-Quill for the subcuticular layer, and myriam for the skin. The extremity was cleansed. The patient was woken up from the anesthetic, extubated, and taken to the postoperative care unit in stable condition. POSTOPERATIVE PLAN OF CARE: Touch-down weightbearing with no active abduction and anterolateral hip precautions for a minimum of 6 weeks, with a hip abductor pillow in place at night and during periods of rest for the first 3 weeks. Antibiotics for 24 hours postop. DVT prophylaxis, both mechanical and chemical. Follow up in the office in 2-3 weeks. Staple removal in 10-14 days. This is billed as an unlisted procedure. There is no code that accurately depicts the nature of the abductor repair. The perioperative work required and the postoperative care is most similar to a total hip arthroplasty. We will bill it as a CPT similar to that, 55264. ATTENDING/ASSISTING PARTICIPATION: This operation could not have been safely performed (without compromising the technical results or length of the procedure) without the assistance of a skilled surgical coordinator. A surgical coordinator was medically necessary for positioning, retraction and instrumentation. [facility] [employer] 2023 Nurse Note Assessment remains unchanged from previous. Neuro checks WN, abductor pillow in place. Call light within reach. [facility] [employer] 2023 Nurse Note Assessment remains unchanged from previous. Neuro checks WNL, abductor pillow in place. Denies futher needs, call light within reach. [facility] [employer] 07-07-2023 Consult note Associated Order (s): IP CONSULT TO GENERAL MEDICINE Medical consultation Patient is a 77 year old female who presents for revision total hip arthroplasty. She was at her baseline state of health prior to surgery and was medically optimized by her primary care provider and boiler control technician. Testing notable for a blood sugar of 114, a hemoglobin A1c of 6.2, a urinalysis with small leukocyte esterase, a potassium of 3.1, and an INR of 1.23. She is doing well postoperatively. She has ambulated and voided. Pain is adequately controlled. Denies chest pain, palpitations, cough, sputum, shortness of breath, nausea, vomiting, lower extremity edema. Known paroxysmal atrial fibrillation. Currently in normal sinus rhythm. Known high blood pressure. she is feeling well. There are no complaints relative to her blood pressure. Patient is compliant with medications. she denies any side effects from medications. she denies chest pain, SOB, PELAYO, palpitations, orthopnea, PND, edema, headache, focal neurologic complaints, claudication. Known overactive bladder. Symptoms well controlled. Known impaired fasting glucose. Watching diet only. Hemoglobin A1c only minimally elevated. General: No fever, chills, weight loss. HEENT: No sinus pain, ear pain, sore throat. Neck: No LAD. Lungs: No cough, sputum, pleuritic pain, hemoptysis, SOB. CV: No chest pain, palpitation, orthopnea, PND, edema. GI: No abd pain, nausea, vomiting, diarrhea, constipation, melena, hematochezia. : No dysuria, frequency, hematuria. Skin: No rash or lesion. Neuro: No mental status changes, headache, focal neurologic complaints. Past Medical History: Diagnosis Date Arrhythmia a-fib Arthritis Essential hypertension, benign GERD (gastroesophageal reflux disease) Hematuria had it forever, it's just normal Migraine Stomach ulcer 2000 Past Surgical History: Procedure Laterality Date HIP REPLACEMENT 2021 ABLATION NERVE RADIOFREQUENCY PULSED 09/2018 for a-fib with [facility] APPENDECTOMY BREAST LUMPECTOMY FOOT SURGERY HEART CATHETERIZATION no stents NE ENDOMETRIAL CRYOABLATION REMOVAL BILIARY DUCT/GALLBLADDER CALCULI/DEBRIS PERCUTANEOUS W/ IMAGE REMOVAL CATARACT (PEM) ROTATOR CUFF REPAIR Bilateral Social History Socioeconomic History Marital status: Spouse name: Not on file Number of children: Not on file Years of education: Not on file Highest education level: Not on file Occupational History Not on file Tobacco Use Smoking status: Never Smokeless tobacco: Never Vaping Use Vaping status: Never Used Substance and Sexual Activity Alcohol use: Yes Comment: social Drug use: Never Sexual activity: Not on file Other Topics Concern Not on file Social History Narrative Not on file Social Determinants of Health Financial Resource Strain: Not on file Food Insecurity: No Food Insecurity (07/07/2023) Hunger Vital Sign Worried About Running Out of Food in the Last Year: Never true Ran Out of Food in the Last Year: Never true Transportation Needs: No Transportation Needs (07/07/2023) PRAPARE - Transportation Lack of Transportation (Medical): No Lack of Transportation (Non-Medical): No Physical Activity: Not on file Stress: Not on file Social Connections: Not on file Intimate Partner Violence: Not At Risk (07/07/2023) Humiliation, Afraid, Rape, and Kick questionnaire Fear of Current or Ex-Partner: No Emotionally Abused: No Physically Abused: No Sexually Abused: No Housing Stability: Low Risk (07/07/2023) Housing Stability Vital Sign Unable to Pay for Housing in the Last Year: No Number of Places Lived in the Last Year: 1 Unstable Housing in the Last Year: No Allergies Allergen Reactions *Adhesive Tape Other reaction(s): Blister Hydrocodone-Acetaminophen Itching, Nausea Only and Rash Other Reaction(s): Unknown Levofloxacin Itching, Nausea Only and Rash Other Reaction(s): Unknown Latex Morphine Oxycodone Penicillins Tramadol Objective: Blood pressure 112/63, pulse 79, temperature 97.5 F (36.4 C), temperature source Temporal, resp. rate 16, height 1.651 m (5' 5 ), weight 76.4 kg (168 lb 6.4 oz), SpO2 90%. Results for orders placed or performed during the hospital encounter of 07/07/23 SCREEN: MRSA ONLY, NARES (ISOLATION SCREEN) Specimen: NARES; E-Swab Result Value Ref Range SCREEN: MRSA NEGATIVE NEGATIVE STAPHYOCOCCUS AUREUS BY PCR NEGATIVE NEGATIVE REPEAT ABO/RH (D) TYPING Result Value Ref Range ABO/RH(D) A POSITIVE BODY FLUID CELL COUNT Result Value Ref Range FLUID TYPE SYNOVIAL FLUID FLUID APPEARANCE HAZY WBC, FLUID 57 /CMM Red Blood Cells (Fluid) 3,376 /CMM Body Fluid Color LIGHT YELLOW DIFFERENTIAL, FLUID Result Value Ref Range FLUID NEUTROPHILS 16 % LYMPHS, FLUID 22 % Monocytes/Macrophages, Fluid 48 % MESOTHELIAL CELLS, FLUID 8 % EOSINOPHILS, FLUID 4 % BASOPHILS, FLUID 2 % HEENT: NC/AT, PERRLA, EOMI, fundi benign, external ears normal, OP normal. Neck: No LAD/thyromegaly. No JVD/bruit. Lungs: Clear to auscultation bilaterally. No wheezes, rales, ronchi. Heart: RRR. No S3/S4. Abdomen: Soft, NT/ND, normal bowel sounds, no HSM, no bruits. Extremities: No clubbing, cyanosis, edema. Normal pulses. Neurologic: CN II-XII intact. Strength/DTR's/sensation symmetric. Cerebellar function normal. Skin: No rash or suspicious lesions. Musculoskeletal: No edema, redness, warmth, deformities. Psychiatric: Alert and oriented. Affect and mood normal. Assessment and Plan: Postop day 0 revision total hip arthroplasty - pain medication, therapy, anticoagulation per Orthopedic surgery. Paroxysmal atrial fibrillation - continue home medication and monitor on telemetry. Hypertension - continue home medication, monitor blood pressure, telemetry, basic metabolic panel in the morning. Overactive bladder - home medication is not on formulary. We will hold while hospitalized. Impaired fasting glucose - carb controlled diet. No indication for sliding scale insulin since hemoglobin A1c is well controlled. Basic metabolic panel in the morning GI prophylaxis. [facility] 07-07-2023 Consult note Associated Order (s): IP CONSULT TO GENERAL MEDICINE Medical consultation Patient is a 77 year old female who presents for revision total hip arthroplasty. She was at her baseline state of health prior to surgery and was medically optimized by her primary care provider and boiler control technician. Testing notable for a blood sugar of 114, a hemoglobin A1c of 6.2, a urinalysis with small leukocyte esterase, a potassium of 3.1, and an INR of 1.23. She is doing well postoperatively. She has ambulated and voided. Pain is adequately controlled. Denies chest pain, palpitations, cough, sputum, shortness of breath, nausea, vomiting, lower extremity edema. Known paroxysmal atrial fibrillation. Currently in normal sinus rhythm. Known high blood pressure. she is feeling well. There are no complaints relative to her blood pressure. Patient is compliant with medications. she denies any side effects from medications. she denies chest pain, SOB, PELAYO, palpitations, orthopnea, PND, edema, headache, focal neurologic complaints, claudication. Known overactive bladder. Symptoms well controlled. Known impaired fasting glucose. Watching diet only. Hemoglobin A1c only minimally elevated. General: No fever, chills, weight loss. HEENT: No sinus pain, ear pain, sore throat. Neck: No LAD. Lungs: No cough, sputum, pleuritic pain, hemoptysis, SOB. CV: No chest pain, palpitation, orthopnea, PND, edema. GI: No abd pain, nausea, vomiting, diarrhea, constipation, melena, hematochezia. : No dysuria, frequency, hematuria. Skin: No rash or lesion. Neuro: No mental status changes, headache, focal neurologic complaints. Past Medical History: Diagnosis Date Arrhythmia a-fib Arthritis Essential hypertension, benign GERD (gastroesophageal reflux disease) Hematuria had it forever, it's just normal Migraine Stomach ulcer 2000 Past Surgical History: Procedure Laterality Date HIP REPLACEMENT 2021 ABLATION NERVE RADIOFREQUENCY PULSED 09/2018 for a-fib with [facility] APPENDECTOMY BREAST LUMPECTOMY FOOT SURGERY HEART CATHETERIZATION no stents NE ENDOMETRIAL CRYOABLATION REMOVAL BILIARY DUCT/GALLBLADDER CALCULI/DEBRIS PERCUTANEOUS W/ IMAGE REMOVAL CATARACT (PEM) ROTATOR CUFF REPAIR Bilateral Social History Socioeconomic History Marital status: Spouse name: Not on file Number of children: Not on file Years of education: Not on file Highest education level: Not on file Occupational History Not on file Tobacco Use Smoking status: Never Smokeless tobacco: Never Vaping Use Vaping status: Never Used Substance and Sexual Activity Alcohol use: Yes Comment: social Drug use: Never Sexual activity: Not on file Other Topics Concern Not on file Social History Narrative Not on file Social Determinants of Health Financial Resource Strain: Not on file Food Insecurity: No Food Insecurity (07/07/2023) Hunger Vital Sign Worried About Running Out of Food in the Last Year: Never true Ran Out of Food in the Last Year: Never true Transportation Needs: No Transportation Needs (07/07/2023) PRAPARE - Transportation Lack of Transportation (Medical): No Lack of Transportation (Non-Medical): No Physical Activity: Not on file Stress: Not on file Social Connections: Not on file Intimate Partner Violence: Not At Risk (07/07/2023) Humiliation, Afraid, Rape, and Kick questionnaire Fear of Current or Ex-Partner: No Emotionally Abused: No Physically Abused: No Sexually Abused: No Housing Stability: Low Risk (07/07/2023) Housing Stability Vital Sign Unable to Pay for Housing in the Last Year: No Number of Places Lived in the Last Year: 1 Unstable Housing in the Last Year: No Allergies Allergen Reactions *Adhesive Tape Other reaction(s): Blister Hydrocodone-Acetaminophen Itching, Nausea Only and Rash Other Reaction(s): Unknown Levofloxacin Itching, Nausea Only and Rash Other Reaction(s): Unknown Latex Morphine Oxycodone Penicillins Tramadol Objective: Blood pressure 112/63, pulse 79, temperature 97.5 F (36.4 C), temperature source Temporal, resp. rate 16, height 1.651 m (5' 5 ), weight 76.4 kg (168 lb 6.4 oz), SpO2 90%. Results for orders placed or performed during the hospital encounter of 07/07/23 SCREEN: MRSA ONLY, NARES (ISOLATION SCREEN) Specimen: NARES; E-Swab Result Value Ref Range SCREEN: MRSA NEGATIVE NEGATIVE STAPHYOCOCCUS AUREUS BY PCR NEGATIVE NEGATIVE REPEAT ABO/RH (D) TYPING Result Value Ref Range ABO/RH(D) A POSITIVE BODY FLUID CELL COUNT Result Value Ref Range FLUID TYPE SYNOVIAL FLUID FLUID APPEARANCE HAZY WBC, FLUID 57 /CMM Red Blood Cells (Fluid) 3,376 /CMM Body Fluid Color LIGHT YELLOW DIFFERENTIAL, FLUID Result Value Ref Range FLUID NEUTROPHILS 16 % LYMPHS, FLUID 22 % Monocytes/Macrophages, Fluid 48 % MESOTHELIAL CELLS, FLUID 8 % EOSINOPHILS, FLUID 4 % BASOPHILS, FLUID 2 % HEENT: NC/AT, PERRLA, EOMI, fundi benign, external ears normal, OP normal. Neck: No LAD/thyromegaly. No JVD/bruit. Lungs: Clear to auscultation bilaterally. No wheezes, rales, ronchi. Heart: RRR. No S3/S4. Abdomen: Soft, NT/ND, normal bowel sounds, no HSM, no bruits. Extremities: No clubbing, cyanosis, edema. Normal pulses. Neurologic: CN II-XII intact. Strength/DTR's/sensation symmetric. Cerebellar function normal. Skin: No rash or suspicious lesions. Musculoskeletal: No edema, redness, warmth, deformities. Psychiatric: Alert and oriented. Affect and mood normal. Assessment and Plan: Postop day 0 revision total hip arthroplasty - pain medication, therapy, anticoagulation per Orthopedic surgery. Paroxysmal atrial fibrillation - continue home medication and monitor on telemetry. Hypertension - continue home medication, monitor blood pressure, telemetry, basic metabolic panel in the morning. Overactive bladder - home medication is not on formulary. We will hold while hospitalized. Impaired fasting glucose - carb controlled diet. No indication for sliding scale insulin since hemoglobin A1c is well controlled. Basic metabolic panel in the morning GI prophylaxis. documented in this encounter [facility] 07-07-2023 Nurse Note Arrived to room [facility] from PACU. Bedside report received from RICARDO Jacobo. Oriented to room and provided call light. Admission assessment, head to toe and post op vitals initiated. Fresh ice water and crackers provided. Family members accompanying patient, denies additional needs, call light in reach. FAITH intact flashing green. [facility] 07-07-2023 Nurse Note Patient transferred to [facility] via cart in stable condition. Report given to RICARDO Kim. Cart left in locked and lowest position with side rails up x2. Snack and call light given to patient. Monitors and alarms on and attached to patient. Patient transported to PACU with Damián TILLEY. Reports given to Sara SILVA at 1530H. OR 3 room temp: 65.1F Humidity: 44% Fire score of: 2 documented in this encounter [facility] 07-07-2023 Nurse Surgical operation note Patient transferred to [facility] via cart in stable condition. Report given to RICARDO Kim. Cart left in locked and lowest position with side rails up x2. Snack and call light given to patient. Monitors and alarms on and attached to patient. [facility] 07-07-2023 Nurse Surgical operation note Patient transported to PACU with Damián TILLEY. Reports given to Sara SILVA at 1530H. [facility] 07-07-2023 Surgery Postoperative evaluation and management note POST OPERATIVE/PROCEDURE NOTE Bettie Burns 77 y.o. female [id number] SURGEON Surgeons and Role: * Miko Ohaar MD - Primary SPUD GRADER MEDINA Richardson ANESTHESIOLOGIST CERTIFIED CAREGIVER: Chance Ngo CRNA; PALAK Barrett SURGICAL STAFF Edge Dyer: Kisha Karimi, RICARDO; Whit Govea, RN Nurse Practitioner: MEDINA Richardson Scrub Person: Chi Goldberg RN; Naomi Maier RN; Daryl Duran; Hao Rose LPN PROCEDURE PERFORMED Procedure(s) (LRB): OPEN ABDUCTOR TEAR REPAIR (Right) VS TOTAL HIP REVISION *LATEX ALLERGY* (Right) R hip periarticular injection PRIMARY CLOSURE yes ANESTHESIA (type of) General ESTIMATED BLOOD LOSS 50 DRAINS none BLOOD PRODUCTS None PRE OPERATIVE DIAGNOSIS Tear of rotator cuff of right hip, initial encounter [S76.011A] 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, initial encounter [T84.090A] POST OPERATIVE DIAGNOSIS Tear of rotator cuff of right hip, initial encounter [S76.011A] 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, initial encounter [T84.090A] FINDINGS See op note CONDITION OF PATIENT Stable COMPLICATION No complications GRAFTS AND/OR IMPLANTS Implant Name Type Inv. Item Serial No. 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 LRB No. Used Action ANCHORS, 5.5 NON PUNCHING - [id number] ANCHORS, 5.5 NON PUNCHING HIST ARTHREX [id number] Right 1 Implanted ANCHORS, 5.5 NON PUNCHING - [id number] ANCHORS, 5.5 NON PUNCHING HIST [employer]THREX [id number] Right 3 Implanted SPECIMENS ID Type Source Tests Collected by Time Destination A : Right hip incisional fluid (1-2) (Anaerobic & Aerobic) Fluid/Swab - Other SURGICAL WOUND ANAEROBE CULTURE Miko Ohara MD 07/07/2023 1427 B : Right hip fluid (cell count, defferential, & culture) Fluid, Unspecified FLUID, UNSPECIFIED BODY FLUID CELL COUNT Miko Ohara MD 07/07/2023 1429 C : Right hip suture (1-3) (Anaerobic & Aerobic) Surgical Wound SURGICAL WOUND FUNGUS CULTURE, ACID FAST CULTURE, ANAEROBE CULTURE Miko Ohara MD 07/07/2023 1434 MEDINA Richardson July 07, 2023 3:28 PM [facility] Surgical operation note OR 3 room temp: 65.1F Humidity: 44% Fire score of: 2 [facility] 07-07-2023 Nurse Note Unable to doppler right dorsalis pedis pulse. [facility] 06-19-2023 Miscellaneous Notes Surgeon: Dr Miko Ohara Type of surgery: Open R hip abductor tear repair Date of surgery: 07/07/23 Surgery location: Type of anesthesia: general On a blood thinner?: Eliquis Indication? PAF On an antiplatelet?: No Stent? No Type? No When placed? No Their preference of how long to hold blood thinners/antiplatelet: Not mentioned History of CVA/TIA, DVT/PE? No ATTN: Do they need any additional info faxed(such as office note, ekg, testing, Etc?) They are also asking if pt can take Celebrex 200mg bid post operatively ?? Last ov 06/02/23. Pls review and advise on risk, holding Eliquis and Celebrex question. Okay to proceed with surgery at moderate risk Can use Celebrex Hold Eliquis for 2 days resume after surgery Clearance note faxed back to Dr Ohara office. documented in this encounter [facility] 06-19-2023 Telephone encounter Note Surgeon: Dr Miko Ohara Type of surgery: Open R hip abductor tear repair Date of surgery: 07/07/23 Surgery location: Type of anesthesia: general On a blood thinner?: Eliquis Indication? PAF On an antiplatelet?: No Stent? No Type? No When placed? No Their preference of how long to hold blood thinners/antiplatelet: Not mentioned History of CVA/TIA, DVT/PE? No ATTN: Do they need any additional info faxed(such as office note, ekg, testing, Etc?) They are also asking if pt can take Celebrex 200mg bid post operatively ?? Last ov 06/02/23. Pls review and advise on risk, holding Eliquis and Celebrex question. [facility] 06-19-2023 Telephone encounter Note Okay to proceed with surgery at moderate risk Can use Celebrex Hold Eliquis for 2 days resume after surgery [facility] Work Phone: 06-19-2023 Telephone encounter Note Clearance note faxed back to Dr Ohara office. [facility] 06-18-2023 History of Presen t illness Narrative Ortho Nurse - Established Patient Intake Room#: room 3----- pt here today to review MRI results of the right hip, pt rates her pain on a scale of 3/10 today. Pt states most of her pain is on the side of the hip. Pt did have a R PAULA a year ago with Dr. Denver Hughes in [place]. Pt states she is looking for a second opinion due to having issues from this past surgery. Date: 06/18/2023 2:32 PM Patient: Bettie Burns MR#: [id number] : 1945 Age: 77 y.o. Referring Physician: Miko Ohara MD Insurance: Payor: MEDICARE AETNA HMO OR PPO / Plan: MEDICARE A[employer] PPO / Product Type: *No Product type* / Chief Complaint Patient presents with Right Hip - MRI Results Visit Vitals Ht 1.651 m (5' 5 ) Wt 76.7 kg (169 lb) BMI 28.12 kg/m Pain Recent Labs Lab Results Component Value Date CRP 48.4 (H) 05/14/2023 Lab Results Component Value Date SEDRATE 31 (H) 05/14/2023 No results found for: WBC , WBCCOUNT , WBCFETAL , HGB , HCT , PLATELET , MCV History Past Medical History: Diagnosis Date Arrhythmia Arthritis Essential hypertension, benign Past Surgical History: Procedure Laterality Date HIP REPLACEMENT 2021 ABLATION NERVE RADIOFREQUENCY PULSED APPENDECTOMY BREAST LUMPECTOMY FOOT SURGERY HEART CATHETERIZATION NE ENDOMETRIAL CRYOABLATION REMOVAL BILIARY DUCT/GALLBLADDER CALCULI/DEBRIS PERCUTANEOUS W/ IMAGE REMOVAL CATARACT (PEM) ROTATOR CUFF REPAIR Family History: Her family history is not on file. Social History: Her reports that she has never smoked. She has never used smokeless tobacco. No history on file for alcohol use and drug use. Outpatient Medications Prior to Visit Medication Sig Dispense Refill apixaban 2.5 MG tablet Take by mouth every 12 hours. Aspirin 325 MG tablet Take 1 tablet by mouth daily. Atenolol 25 MG tablet Take 1 tablet by mouth daily. baclofen 10 MG tablet Take 1 tablet by mouth 3 times daily. NEEDED hydroCHLOROthiazide 25 MG tablet Take 1 tablet [...] allergic to morphine, oxycodone, penicillins, and tramadol. HPI: Patient is here today for evaluation of her right hip pain. She is an est patient for me. A pleasant 77 y.o. female with a history of progressive decline, physical function and decreased quality of life secondary to the hip pain. She presents with a highly complex array of symptoms upon exam today. History of right PAULA [place] [address] Rivera. She then developed hip bursitis, had a trochanteric injection as well aqua therapy. She states she feels a slippage within the right hip and does not feel she is getting much relief from conservative treatments. Last evaluated on 05/14/23, MRI and ESR/CRP labs were ordered. ESR/CRP labs were abnormally elevated so referral was made to Dr. Richey for aspiration. Saw Dr. Richey on 05/28/23 for aspiration but it was dry. Denies fevers or chills. Reports UTI x 4 months last year. She is here today to go over MRI study and determine treatment options. PHYSICAL EXAM: This is an alert, oriented, and age-appropriate female. She is in no distress. Pleasant and cooperative. EXTREMITIES: The upper extremities have no gross deformity. Normal stability. 5/5 motor. Intact sensation. Normal coordination. Skin intact. Lower extremities have no gross deformity. Normal stability. 5/5 motor. Intact sensation. Normal coordination. Skin intact. Right hip demonstrates full and supple rotation, external snapping hip sensations with rotation, palpably bald trochanter with increased tenderness. Painful range of motion. Well healed old incision, no drainage, no erythema, no warmth. Contralateral hip has full and supple motion. No pain. No impingement. No instability. Normal neurovascular status in lower extremities bilaterally. IMAGING: MRI HIP RIGHT WITHOUT CONTRAST Result Date: 06/01/2023 IMPRESSION: 1. MRI of pelvis/right hip: Limitations due to motion combined with susceptibility artifact from right hip prosthesis. 2. Tendinopathy involving the bilateral common hamstring tendon origins as well as the gluteal tendons as discussed in detail above. 3. Xwehe-mi-qpqecmlp amount of fluid along the lateral aspect of the greater trochanter in the distribution of the greater trochanteric bursa may relate to postoperative seroma or bursitis. 4. No acute bony finding. Normal marrow signal. NOTE: Other chronic/incidental findings are discussed above. IMPRESSION: 1.) Massive abductor muscle tearing as confirmed by MRI study, right. 2.) History of right PAULA [place] [address] Rivera. 3.) Questionable PJI, right PAULA - elevated unexplained labs. PLAN: We have discussed in great detail the nature of the diagnosis, the natural history and expected progression which is likely worsening pain, worsening instability with risks of falls, and potentially additional joint and or or bone wear. We have discussed the options for treatment including both conservative and operative treatments. We have discussed the risks, benefits, and alternatives to each treatment. Bettie understands that the potential benefits are reduced pain, improved stability and improved function. Bettie understands the complex nature of revision surgery and that the elevated major life or limb threatening risks that include, but are not limited to: bleeding, infection, neurovascular injury including foot drop or paralysis, dislocation, component failure, implant loosening, ligament or tendon disruption, fracture, stiffness, chronic pain, chronic disability, leg length inequality, need for further surgery, blood clots in the extremities or lungs, stroke, heart attack, loss of limb, and ultimately loss of life. In particular the patient understands the increased and major risks of revision surgery such as selma-prosthetic fracture, infection, component failure or loosening, nerve injury, blood vessel injury, loss of leg or life. She understands revision surgery may take longer and may require more extensive exposure and potentially osteotomies and that this may lead to additional morbidity or mortality. Despite these risks, the patient would like to proceed with surgical planning for right open abductor muscle repair vrs right total hip revision, all components pending intraoperative findings. Today, we will initiate the pre-surgical process including nasal MRSA screening, scheduling an appointment for [facility] [place] and the potential surgical date, and reviewing and signing the consent forms. I have reviewed the findings of my clinical staff below and agree with their assessment. Vitals: 06/18/23 1431 Weight: 76.7 kg (169 lb) Height: 1.651 m (5' 5 ) Pain Recent Labs Lab Results Component Value Date CRP 48.4 (H) 05/14/2023 Lab Results Component Value Date SEDRATE 31 (H) 05/14/2023 No results found for: WBC , WBCCOUNT , WBCFETAL , HGB , HCT , PLATELET , MCV Past Medical History: Diagnosis Date Arrhythmia Arthritis Essential hypertension, benign Past Surgical History: Procedure Laterality Date HIP REPLACEMENT 2021 ABLATION NERVE RADIOFREQUENCY PULSED APPENDECTOMY BREAST LUMPECTOMY FOOT SURGERY HEART CATHETERIZATION NE ENDOMETRIAL CRYOABLATION REMOVAL BILIARY DUCT/GALLBLADDER CALCULI/DEBRIS PERCUTANEOUS W/ IMAGE REMOVAL CATARACT (PEM) ROTATOR CUFF REPAIR History reviewed. No pertinent family history. Social History Socioeconomic History Marital status: Tobacco Use Smoking status: Never Smokeless tobacco: Never Social Determinants of Health Food Insecurity: No Food Insecurity (06/02/2023) Received from [facility] Hunger Screening Within the past 12 months we worried whether our food would run out before we got money to buy more.: Never True Within the past 12 months the food we bought just didn't last and we didn't have money to get more.: Never True Current Outpatient Medications: apixaban 2.5 MG tablet, Take by mouth every 12 hours., Disp: , Rfl: Aspirin 325 MG tablet, Take 1 tablet by mouth daily., Disp: , Rfl: Atenolol 25 MG tablet, Take 1 tablet by mouth daily., Disp: , Rfl: baclofen 10 MG tablet, Take 1 tablet by mouth 3 times daily. NEEDED, Disp: , Rfl: hydroCHLOROthiazide 25 MG tablet, [...] Tramadol documented in this encounter [facility] 06-02-2023 History of Presen t illness Narrative Bettie Carly Carlosbobbi Date of visit: 06/02/2023 Date of : [...] issues. Past Medical History: Diagnosis Date [place] hx of Arrhythmia 12/2016 ATRIAL FIBRILLATION Arthritis Breast cancer ([facility] 11/14/2015 LEFT COVID-19 03/2020 History of bleeding ulcers Hypertension Migraines Pneumonia d/t covid Prolonged emergence from general anesthesia Visual impairment glasses No data recorded No data recorded No data recorded Past Surgical History: Procedure Laterality Date ABLATION OF DYSRHYTHMIC FOCUS Right nerve ablation, L4 and L5 Afib ablation with SHANICE - CRYO, Rhythmia, ICE N/A 09/28/2018 Performed by Amber Quiñonez MD at [facility] () ARTHROSCOPY REPAIR ROTATOR CUFF SHOULDER Right 05/16/2020 Performed by Melchor Rivera DO at [facility] ARTHROSCOPY SHOULDER Right 05/16/2020 Performed by Melchor Rivera DO at [facility] BREAST BIOPSY Left 2016 BREAST LUMPECTOMY Left 11/14/2015 WITH RADIATION BREAST SURGERY Left 2013 lumpectomy CATARACT EXTRACTION CHOLECYSTECTOMY COLONOSCOPY Coronary angiogram and left ventricular gram/pressure N/A 08/08/2021 Performed by Bertram Lal MD at [facility] CARDIAC CATH LABS EYE SURGERY lids [...] STARKS MD Referring Physician: Elliot Starks MD [address] [place] [address] documented in this encounter [facility] [employer] 05-14-2023 History of Presen t illness Narrative Ortho Nurse - Patient Intake Room#: 1 --- 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 Referring Physician: Self, Self Insurance: Payor: MEDICARE [employer] HMO OR PPO / Plan: MEDICARE [employer] PPO / Product Type: *No Product type* [...] [x]cane, []bracing Are you followed by a boiler control technician? [x] [] Name: Dr. Waleska Zhu - [facility] Are you followed by pain management? [x] [] Name: Dr. Cedeno - [facility] @ [facility] Are you followed by any other specialists? [x] [] Name: Oncolgist - Dr. Choi [facility] Urologist - Dr. Christian Gong [place] Outpatient Medications Prior to Visit Medication Sig [...] abductor muscles as well as ESR/CRP and [place] and [facility] labs today. I will see [...] APPENDECTOMY BREAST LUMPECTOMY FOOT SURGERY HEART CATHETERIZATION NE ENDOMETRIAL CRYOABLATION REMOVAL BILIARY DUCT/GALLBLADDER CALCULI/DEBRIS PERCUTANEOUS [...] Tramadol documented in this encounter [facility] 03-30-2023 Evaluation note Encounter Date [...] verbalizes understanding and agrees with tx plan. [facility] Other 10-11-2023 NoteChief Complaint Referral *Frequent UTI [...] states that she was put on a shelter abx which has helped a lot. Pt [...] a hematuria workup including a scope, at [facility]. Occasional visible blood w/UTI. UA today shows moderate blood. Discussed doing a hematuria workup if the pt would like to. Pt states that she is not worried aboutthis and does not see the need to have t (more content not included)...[facility] SystemComment on above:Result Comment: Electronically Signed By: Alfreda Miller MD\.br\Date and Time Signed: 02/11/23 12:13EDT\.br\Electronically Co-Signed By: Karlee Ramos\.br\Date and Time Co-Signed: 02/11/23 11:16 [id number] Hospital Discharge instructions Patient Education 02/11/2023 11:16:08 [...] provider. Document Revised: 08/29/2021 Document Reviewed: 08/29/2021 [employer] Patient Education 2022 [employer]. Follow Up Care 11/06/2022 15:31:52 With:Paul VILLEGAS, PERLA Araujo, URO Address: When:Within 3 Month(s) [facility]-17[facility]2023 Evaluation note* Encounter Date Diagnosis Assessment Notes Treatment Notes Treatment Clinical Notes Nov, Dysuria (ICD-10 - R30.0) [facility] Other 06-29-2023 Evaluation note* Encounter Date Diagnosis Assessment Notes Treatment Notes Treatment Clinical Notes Oct, Frequent UTI (ICD-10 - N39.0) Pt requests Urology referral. Discussed also getting CT to move along process. Oct, Dyshidrotic eczema (ICD-10 - L30.1) Will treat with steroid cream prn [facility] Other 06-26-2023 Evaluation note* Encounter Date Diagnosis Assessment Notes Treatment Notes Treatment Clinical Notes Oct, Dysuria (ICD-10 - R30.0) [facility] Other 05-11-2023 Miscellaneous Notes* Telephone Encounter - Matt Adams RN - 09/11/2022 11:43 AM EDT Order faxed to [facility] and pt is aware. Matt Adams RN * Telephone Encounter - Matt Adams RN - 09/11/2022 9:51 AM EDT Pt called to request yearly Mammogram order I have pended order as previously completed Pt requests to fax to Nori Lema [phone] BRM/HM: please review and sign if agreeable Matt Adams RN [facility]* Encounter Date Diagnosis Assessment Notes Treatment Notes Treatment Clinical Notes Aug, Dysuria (ICD-10 - R30.0) [facility] Other 03-16-2023 Evaluation note* Encounter Date Diagnosis [...] N32.81) chronic and improved on present med [facility] Other 02-20-2023 Evaluation note* Encounter Date Diagnosis Assessment Notes Treatment Notes Treatment Clinical Notes Jun, Dysuria (ICD-10 - R30.0) [facility] Other 02-03-2023 Evaluation note* Encounter Date Diagnosis Assessment Notes Treatment Notes Treatment Clinical Notes Jun, OAB (overactive bladder) (ICD-10 - N32.81) [facility] Other 02-01-2023 Evaluation note* Encounter Date Diagnosis Assessment Notes Treatment Notes Treatment Clinical Notes Jun, OAB (overactive bladder) (ICD-10 - N32.81) Patient request to try new medication reviewed side effect profile. Patient declines urology or SEO STRATEGIST referral at this time. Jun, Essential hypertension (ICD-10 - I10) reviewed and updated medications she will follow-up with cardiology in Jun, Hypokalemia (ICD-10 - E87.6) Reviewed and updated medications. Discussed foods that are high in potassium Jun, Right lumbar pain (ICD-10 - M54.50) Follow-up with Dr. Rivera as scheduled in June. She does have limping with her gait. [facility] Other 05-26-2022 Miscellaneous Notes* Telephone Encounter - Andrew Choi MD - 09/26/2021 5:13 PM EDT Okay to change to screening mammogram. Order signed. ASIYA Ford * Telephone Encounter - Mikaela Thompson RN - 09/26/2021 2:33 PM EDT Pt scheduled for diagnostic mamm tomorrow @ [facility]. Hospital calls to ask if this could be changed to a screening mammogram since the pt is greater than 2 years from diagnosis? Mikaela Thompson RN [facility] Future Appointments Appointment Date:05/27/2023 08:45:00 AM Scheduled Provider:Paul VILLEGAS, Alfreda Palacios Location:[facility] Appointment Type:URO Office Visit [facility] evaluation note* Diagnosis Encounter for screening mammogram for malignant neoplasm of breast- Primary Other screening mammogram [facility]* Diagnosis Malignant neoplasm of upper-outer quadrant of left breast in female, estrogen receptor positive (HCC)- Primary [facility] noteNo InformationNort [employer] Other Evaluation note* Diagnosis Encounter for screening mammogram for malignant neoplasm of breast- Primary Other screening mammogram documented in this encounter [facility] noteNo assessment information [facility] Work Phone: Evaluation note* Diagnosis Pain in prosthetic joint, initial encounter- Primary Primary osteoarthritis of right hip Primary localized osteoarthrosis, pelvic region and thigh [facility] Diagnosis Paroxysmal atrial fibrillation ([facility])- Primary Atrial fibrillation Primary hypertension Unspecified essential hypertension Chronic coronary artery disease Coronary atherosclerosis of unspecified type of vessel, little shell tribe or graft [facility]* Diagnosis Right hip pain- Primary Pain in joint, pelvic region and thigh Pre-op testing- Primary Preoperative examination, unspecified Essential (primary) hypertension Unspecified essential hypertension Abnormal finding of blood chemistry, unspecified Abnormal coagulation profile Tear of rotator cuff of right hip, initial encounter 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, initial encounter [facility]* Diagnosis Status post revision of total hip- Primary Hip joint replacement by other means Pre-op testing Preoperative examination, unspecified Tear of rotator cuff of right hip, initial encounter 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, initial encounter Acute postoperative pain of right hip documented [facility]* Diagnosis Tear of gluteus minimus tendon, right, initial encounter- Primary documented [facility]* Diagnosis Right hip pain- Primary Pain in joint, pelvic region and thigh [facility]* Diagnosis Onset Date Resolution Status Dysuria noneactive [facility] Work Phone: History general Narrative - [...] replacement 12/16/2021 Hospitalization History SEE SURGICAL HX [facility] Other Hospital course Narrative No data available for this section [facility] Hospital Discharge instructions* Attachments The following attachments cannot be sent through Care Everywhere. * [facility] AMB SMOKING CESSATION LINKS documented in this encounterAvita Health SystemInstructionsNot on filedocumented in this encounterProMedica Health SystemInstructionsNot on filedocumented in this encounterProMedica Health SystemInstructionsNot on filedocumented in this encounterProMedica Health SystemProgress note No data available for this section [facility] [employer] reason for referral (narrative)* Diagnostic Procedure Only (Routine) - Pending Review Specialty Diagnoses / Procedures Referred By Juan wren Referred To Contact [facility] Diagnoses Encounter for screening mammogram for malignant neoplasm of breast Procedures SHANE SCREENING W YAW SCREENING DIGITAL BREAST TOMOSYNTHESIS BI SCREENING MAMMOGRAPHY BI 2-VIEW BREAST INC Andrew Miguel MD [address] [place] [address] [place] [address] [facility] [place] [address] Referral ID Status Reason Start Date Expiration Date Visits Requested Visits Authorized [id number] Pending Review Auto-Generat ed Referral 09/26/2021 10/26/2022 1 1 [facility] for referral (narrative)* Diagnostic Procedure Only (Routine) - Pending Review Specialty Diagnoses / Procedures Referred By Juan wren Referred To Contact [facility] Diagnoses Encounter for screening mammogram for malignant neoplasm of breast Procedures SHANE SCREENING W YAW SCREENING DIGITAL BREAST TOMOSYNTHESIS BI SCREENING MAMMOGRAPHY BI 2-VIEW BREAST INC Andrew Miguel MD [address] [place] [address] [place] [address] [facility] [address] [place] [address] Referral ID Status Reason Start Date Expiration Date Visits Requested Visits Authorized [id number] Pending Review Auto-Generat ed Referral 09/11/2022 10/11/2023 1 1 [facility] for referral (narrative)* (Routine) Specialty Diagnoses / Procedures Referred By Juan wren Referred To Contact [facility] [address] [place] [address] Referral ID Status Reason Start Date Expiration Date Visits Re quested Visits Authorized [facility] for referral (narrative)* Consultation (Routine) - Patient to Arrange Specialty Diagnoses / Procedures Referred By Contac t Referred To Contact Physical Therapy Diagnoses Right hip pain Etiennenery Divine M [address] [place] [id number] Referral ID Status Reason Start Date Expiration Date V isits Requested Visits Authorized [id number] Patient to Arrange 08/20/2023 09/13/2024 1 1 Scheduling Instructions . * Diagnostic X-Ray (Routine) - New Request Specialty Diagnoses / Procedures Referred By Contac t Referred To Contact Diagnoses Right hip pain Procedures XR HIP WITH PELVIS RIGHT Divine Mahmood [address] [place] [id number] Referral ID Status Reason Start Date Expiration Date V isits Requested Visits Authorized [id number] New Request 08/20/2023 09/13/2024 1 1 [facility] for referral (narrative)* Diagnostic Procedure Only (Routine) - Pending Review Specialty Diagnoses / Procedures Referred By Contac t Referred To Contact [facility] Diagnoses Encounter for screening mammogram for malignant neoplasm of breast Procedures SHANE SCREENING W YAW SCREENING DIGITAL BREAST TOMOSYNTHESIS BI SCREENING MAMMOGRAPHY BI 2-VIEW BREAST INC Andrew Miguel MD [address] [place] [address] [place] [address] [facility] [address] [place] [phone] Referral ID Status Reason Start Date Expiration Date Visits Requested Visits Authorized [id number] Pending Review Auto-Generat ed Referral 09/17/2023 10/16/2024 1 1 [facility] Summary Purpose Family History Relationship Condition Age at Onset Recorded Date/T nilam father Unknown mother Unknown Advance Directives Documents on File Type Date Recorded 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 Living Will 05/21/2020 9:37 AM Durable Power of Environmental Tech 05/21/2020 9:27 AM Durable Power of Environmental Tech 05/16/2020 6:05 AM Living Will 05/16/2020 6:04 AM Documents on File Type Date Recorded 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 Advance Directives/Living Will 06/25/2023 9:17 AM DURABLE POWER OF FLUID POWER MECHANIC FOR HEALTHCARE 06/25/23 Advance Directives/Living Will 06/25/2023 9:13 AM LIVING WILL 06/25/23 Latest Code Status on File Code Status Date Activated Date Inactivated Comments Full Code 07/07/2023 3:27 PM Advance Directive Response Recorded Date/ Time Advance Directives No November 17 6:19pm Reason for Referral Specialty Diagnoses / Procedures Referred By Contac t Referred To Contact Diagnoses Tear of gluteus minimus tendon, right, initial encounter Procedures XR HIP WITH PELVIS RIGHT Divine Mahmood [address] [place] [id number] Referral ID Status Reason Start Date Expiration Date V isits Requested Visits Authorized [id number] New Request 07/20/2023 08/13/2024 1 1 Specialty Diagnoses / Procedures Referred By Contac t Referred To Contact Diagnoses Pain in prosthetic joint, initial encounter Procedures MRI HIP RIGHT WITHOUT CONTRAST NE MRI LOWER EXTREM JT, W/O CONTRAST Miko Ohara MD [address] [place] [address] Referral ID Status Reason Start Date Expiration Date V isits Requested Visits Authorized [id number] New Request 05/14/2023 06/07/2024 1 1 Specialty Diagnoses / Procedures Referred By Contac t Referred To Contact Diagnoses Pain in prosthetic joint, initial encounter Procedures COBALT AND CHROMIUM,WB Miko Ohara MD [address] [place] [address] Referral ID Status Reason Start Date Expiration Date V isits Requested Visits Authorized [id number] New Request 05/14/2023 06/07/2024 1 1 Specialty Diagnoses / Procedures Referred By Juan wren Referred To Contact Diagnoses Primary osteoarthritis of right hip Procedures XR HIP WITH PELVIS RIGHT Miko Ohara MD [address] [place] [address] Referral ID Status Reason Start Date Expiration Date V isits Requested Visits Authorized [id number] New Request 05/06/2023 05/30/2024 1 1 Reason *FU 11/12 [place] office Diagnosis 1 Frequent UTI (N39.0) Referral Organization [facility] Referring Provider First Name Elliot Referring Provider Last Name Raudel Referring Provider Specialty Family [facility] Referred Organization [facility] Referred Provider ALFREDA MILLER Referred Address [address] [place], [place],[address] Referred Provider Specialty Urology Referral Priority Routine General Notes Victoria Lisa 11:03:05 AM >received today, notes attached, along with labs and ins, waiting for notes to be locked before faxing Victoria Lisa 11/05/2022 02:44:05 PM >referral faxed Chief Complaint and Reason for Visit Chief Complaint med refills Reason for Visit Dysuria Additional Source Comments INFORMATION SOURCE (unrecogn ized section and content) DATE CREATED AUTHOR 10/28/2017 [facility] DATE CREATED AUTHOR AUTHOR'S ORGANIZ ATION 03/21/2020 [facility] DATE CREATED AUTHOR AUTHOR'S ORGANIZ ATION 09/13/2021 [facility] DATE CREATED AUTHOR AUTHOR'S ORGANIZ ATION 06/11/2022 [facility] DATE CREATED AUTHOR AUTHOR'S ORGANIZ ATION 11/18/2022 [facility] DATE CREATED AUTHOR AUTHOR'S ORGANIZ ATION 05/20/2023 [facility] DATE CREATED AUTHOR AUTHOR'S ORGANIZ ATION 06/06/2023 [facility] DATE CREATED AUTHOR AUTHOR'S ORGANIZ ATION 07/10/2023 [facility] DATE CREATED AUTHOR AUTHOR'S ORGANIZ ATION 09/19/2023 [facility] DATE CREATED AUTHOR AUTHOR'S ORGANIZ ATION 10/01/2023 [facility] DATE CREATED AUTHOR AUTHOR'S ORGANIZ ATION 10/17/2023 [facility] Source Comments (unrecognize d section and content) In the event this informatio n is protected by the Federal Confidentiality of Alcohol and Drug Abuse Patient Records regulations: The Federal rules restrict any use of the information to criminally investigate or prosecute any alcohol or drug abuse patient.[facility] the event this information is protected by the Federal Confidentiality of Alcohol and Drug Abuse Patient Records regulations: The Federal rules restrict any use of the information to criminally investigate or prosecute any alcohol or drug abuse patient.[facility] the event this information is protected by the Federal Confidentiality of Alcohol and Drug Abuse Patient Records regulations: The Federal rules restrict any use of the information to criminally investigate or prosecute any alcohol or drug abuse patient.[facility] the event this information is protected by the Federal Confidentiality of Alcohol and Drug Abuse Patient Records regulations: The Federal rules restrict any use of the information to criminally investigate or prosecute any alcohol or drug abuse patient.[facility] Reason for Visit (unrecogniz ed section and content) Reason Comments Radiology Mammogram Reason Comments Lab Orders Reason Comments Orders Specialty Diagnoses / Procedures Referred By Juan wren Referred To Contact Diagnoses Primary osteoarthritis of right hip Procedures XR HIP WITH PELVIS RIGHT Miko Ohara MD [address] [place] [address] Referral ID Status Reason Start Date Expiration Date V isits Requested Visits Authorized [id number] New Request 05/06/2023 05/30/2024 1 1 Reason Comments Pain Reason Comments Follow-up est pt concerns of a fib per smart watch wants seen sooner. 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, initial encounter [T84.090A] Procedures NE PELVIS/HIP JOINT SURGERY UNLISTED NE REVISE TOTAL HIP REPLACEMENT GLUTEUS MEDIUS TENDON REPAIR REVISION ARTHROPLASTY HIP BOTH ACETABULAR & FEMORAL COMPONENTS Miko Ohara MD [address] [place] [address] Referral ID Status Reason Start Date Expiration Date Visits Re quested Visits Authorized [id number] 06/19/2023 1 1 Reason Comments Post Op Visit Specialty Diagnoses / Procedures Referred By Juan wren Referred To Contact Diagnoses Tear of gluteus minimus tendon, right, initial encounter Procedures XR HIP WITH PELVIS RIGHT Divine Mahmood [address] [place] [address] Referral ID Status Reason Start Date Expiration Date V isits Requested Visits Authorized [id number] New Request 07/20/2023 08/13/2024 1 1 Reason Comments Med Refill Reason Comments Follow-up Specialty Diagnoses / Procedures Referred By Juan wren Referred To Contact Diagnoses Right hip pain Procedures XR HIP WITH PELVIS RIGHT Ela Divine M [address] [facility] [place] [address] Referral ID Status Reason Start Date Expiration Date V isits Requested Visits Authorized [id number] New Request 08/20/2023 09/13/2024 1 1 Reason Comments Yearly Exam With Mammogram Care Teams (unrecognized sec tion and content) Aluminum Pourer Relationship Specialty Start Date End Date Elliot Starks MD [address] [place] [address] PCP - General Family Practice 11/26/15 Aluminum Pourer Relationship Specialty [place] [address] [place] [phone] PCP - General Family Practice 11/26/15 Aluminum Pourer Relationship Specialty [place] [address] [place] [phone] PCP - General Family Medicine 11/26/15 Team Status: Inactive Member Role Status Dates Elliot Starks MD Attending Provider Active Aluminum Pourer Relationship Specialty [place] [address] [place] [address] [phone] PCP - General Family Medicine 05/11/23 Aluminum Pourer Relationship Specialty [place] [address] [place] [address] [phone] PCP - General Family Medicine 05/11/23 Aluminum Pourer Relationship Specialty Start Date End Date Elliot Starks MD [address] [place] [phone] PCP - General 03/17/17 Aluminum Pourer Relationship Specialty [place] [address] [place] [phone] PCP - General 03/17/17 Aluminum Pourer Relationship Specialty [place] [address] [place] [phone] PCP - General Family Medicine 05/11/23 Aluminum Pourer Relationship Specialty [place] [address] [place] [phone] PCP - General Family Medicine 05/11/23 Aluminum Pourer Relationship Specialty Start Date End Date Elliot Starks MD [address] [place] [phone] PCP - General 03/17/17 Aluminum Pourer Relationship Specialty Start Date End Date Elliot Starks MD [address] [place] [phone] PCP - General Family Medicine 05/11/23 Aluminum Pourer Relationship Specialty [place] [address] [place] [phone] PCP - General Family Medicine 05/11/23 Aluminum Pourer Relationship Specialty [place] [address] [place] [phone] PCP - General 07/15/23 Aluminum Pourer Relationship Specialty Start Date End Date Elliot Starks MD [address] [place] [address] PCP - General Family Medicine 05/11/23 Aluminum Pourer Relationship Specialty Start Date End Date Elliot Starks MD [address] [place] [address] PCP - General Family Medicine 05/11/23 Aluminum Pourer Relationship Specialty Start Date End Date Elliot Starks MD [address] [place] [phone] PCP - General Family Medicine 11/26/15 Team Status: Active Member Role Status Dates Elliot Starks MD Primary Care Provider Active Team Status: Inactive Member Role Status Dates Elliot Starks MD Primary Care Provide r, Attending Provider Active Start: October 28, 2023 End: October 28, 2023 Goals (unrecognized section and content) Goals may be documented in a n alternate section Scheduled Active and Recently Administ ered Medications (unrecognized section and content) Medication Order 07/06/2023 07/07/2023 2023 acetaminophen (TYLENOL) tablet 1,000 mg 1,000 mg, Oral, EVERY 6 HOURS NON-STANDARD, First dose on Thu07/07/23 at 1845, Until Discontinued, Post-op/Post-Proc 181 (Given - Provider: Marcella Lozano RN)2348 (Given - Provider: Aidee Field RN) 0607 (Given - Provider: Aidee Field RN)1511 (Given - Provider: Dolly Liao RN)1845 (Canceled Entry - Provider: System Discharge - Comment: Automatically canceled at discontinue of medication order) apixaban (ELIQUIS) tablet 2.5 mg 2.5 mg, Oral, EVERY 12 HOURS, First dose on Thu07/08/23 at 0900, Until Discontinued, Start in AM day after surgery, Indications: Venous Thromboembolism, Post-op/Post-Proc 09 (Given - Provid er: Dolly Liao, RICARDO) Atenolol (TENORMIN) tablet 75 mg 75 mg, Oral, DAILY, First dose on Thu07/08/23 at 0900, Until Discontinued 903 (Given - Provid er: Dolly Liao RN) ceFAZolin (ANCEF) 2 g in dextrose 100 mL premix IVPB 2 g, Intravenous, Administer over 30 Minutes, EVERY 8 HOURS NON-STANDARD, First dose on Thu07/07/23 at 2145, Until Discontinued, Post-op/Post-Proc 2103 ($$New Bag$$ - Provider: Aidee Field RN)2133 (Stopped - Provider: Aidee Field RN) 0608 ($$New Bag$$ - Provider: Aidee Field RN)1511 ($$New Bag$$ - Provider: Dolly Liao RN) dexAMETHasone (DECADRON) injection 10 mg (COMPLETED) 10 mg, Intravenous, EVERY 24 HOURS, 1 dose, First dose on Thu07/08/23 at 1530, 24 hours post op, Post-op/Post-Proc 1511 (Given - Provid er: Dolly Liao RN) Docusate (COLACE) capsule 100 mg 100 mg, Oral, 2 TIMES DAILY, First dose on Thu07/07/23 at 1700, Until Discontinued, Post-op/Post-Proc 1818 (Given - Provider: Marcella Lozano RN) 903 (Given - Provider: Dolly Liao RN)1700 (Canceled Entry - Provider: System Discharge - Comment: Automatically canceled at discontinue of medication order) hydroCHLOROthiazide (HYDRODIURIL) tablet 25 mg 25 mg, Oral, DAILY, First dose on Thu07/08/23 at 0900, Until Discontinued 903 (Given - Provid er: Dolly Liao RN) Lisinopril (PRINIVIL) tablet 20 mg 20 mg, Oral, DAILY, First dose on Thu07/08/23 at 0900, Until Discontinued 903 (Given - Provid er: Dolly Liao RN) Pantoprazole (PROTONIX) tablet DR 40 mg 40 mg, Oral, DAILY, First dose on Thu07/08/23 at 0900, Until Discontinued, Indications: Continuation of Home Therapy, Inpt Stress Ulcer Prophylaxis 903 (Given - Provid er: Dolly Liao RN) potassium chloride (KLOR-CON) tablet ER 10 mEq 10 mEq, Oral, DAILY, First dose on Thu07/08/23 at 0900, Until Discontinued 903 (Given - Provid er: Dolly Liao RN) ROPivacaine (NAROPIN) 1 % 400 mg, EPINEPHrine PF (ADRENALIN) 1 MG/ML 1 mg, Ketorolac (TORADOL) 30 MG/ML 30 mg, cloNIDine 100 MCG/ML 153 mcg, Sodium chloride 0.9% 45 mL in viaflex container 1 Each 88.53 mL (total volume) (COMPLETED) Intra-articular, INTRA-OP ONCE, 1 dose, Starting on Thu07/07/23 at 1433, Until Thu07/07/23 at 1433, 88.53 mL, To be mixed by pharmacy NOT for IV use, Intra-op/Intra-Proc 1433 (Given - Provider: Whit Govea RN) vancomycin (VANCOCIN) 1,000 mg in dextrose 200 ml premix IVPB (COMPLETED) 1,000 mg (rounded from 973.5 mg = 15 mg/kg 64.9 kg Adjusted weight), Intravenous, ONCE, 1 dose, On Thu07/07/23 at 1015, Infuse at a rate of 1 gram/hour. Extravasation Risk, Pre-op/Pre-Proc 1118 ($$New Bag$$ - Provider: Kari Moyer RN) vancomycin (VANCOCIN) 1,000 mg in dextrose 200 ml premix IVPB (COMPLETED) 1,000 mg, Intravenous, ONCE, 1 dose, On Thu07/08/23 at 0145, Infuse at a rate of 1 gram/hour. Extravasation Risk, Post-op/Post-Proc 0009 ($$New Bag$$ - Provider: Aidee Field RN)0109 (Stopped - Provider: Aidee Field RN) Continuous Medication Order 07/06/2023 07/07/2023 2023 Lactated ringers IV solution (CANCELED) Intravenous, at 75 mL/hr, CONTINUOUS, Starting on Thu07/07/23 at 1015, Until Thu07/07/23 at 1609, Pre-op/Pre-Proc 1043 ($$New Bag$$ - Provider: Chelsea Bledsoe RN)1514 ($$New Bag$$ - Provider: Damián Saenz APRN-CERTIFIED CAREGIVER)1647 (Stopped - Provider: Aidee Field RN) Sodium chloride 0.9% IV solution Intravenous, at 75 mL/hr, CONTINUOUS, Starting on Thu07/07/23 at 1645, Until Thu07/08/23 at 1920, Convert IV to PRN adapter post op day 1 if adequate oral intake, Post-op/Post-Proc 1647 ($$New Bag$$ - Provider: Marcella Lozano RN)2200 (Rate/Dose Verify - Provider: Aidee Field RN) 0208 (Rate/Dose Verify - Provider: Aidee Field RN)0633 (Rate/Dose Verify - Provider: Aidee Field RN) PRN Medication Order 07/06/2023 07/07/2023 2023 acetaminophen (TYLENOL) tablet 1,000 mg (COMPLETED) 1,000 mg, Oral, ONCE DIRECTED, 1 dose, Starting on Thu07/07/23 at 1003, Until Thu07/07/23 at 1043, See admin instructions, Administer 1 hour preop., Pre-op/Pre-Proc 1043 (Given - Provider: Chelsea Bledsoe RN) bisacodyl (DULCOLAX) suppository 10 mg 10 mg, Rectal, DAILY NEEDED, Starting on Thu07/07/23 at 1637, Until Thu07/08/23 at 1920, constipation, Post-op/Post-Proc ceFAZolin (ANCEF) 2 g in dextrose 100 mL premix IVPB (COMPLETED) 2 g, Intravenous, Administer over 15 Minutes, POST OFFICE MARKUP CLERK TO PROCEDURE, 1 dose, Starting on Thu07/07/23 at 1003, Until Thu07/07/23 at 1409, Other, Pre-operative antibiotic, Pre-op/Pre-Proc 1354 (Given - Provider: Melchor Holcomb, DIRECTOR OF STUDENT AID-CERTIFIED CAREGIVER) HYDROmorphone (DILAUDID) injection 0.5 mg 0.5 mg, Intravenous, EVERY 4 HOURS NEEDED, Starting on Thu07/07/23 at 1637, Until Thu07/08/23 at 1920, Severe Pain, Post-op/Post-Proc Ondansetron 4mg/2ml (ZOFRAN) injection 4 mg 4 mg, Intravenous, EVERY 4 HOURS NEEDED, Starting on Thu07/07/23 at 1637, Until Thu07/08/23 at 1920, Nausea / Vomiting, Post-op/Post-Proc 0612 (Given - Provid er: Aidee Field, RICARDO) oxyCODONE (ROXICODONE) tablet 5-10 mg 5-10 mg, Oral, EVERY 4 HOURS NEEDED, Starting on e 07/07/23 at 1637, Until Thu07/08/23 at 1920, moderate-severe pain, If pain unrelieved with oxycodone, contact pharmacist to enter order for Oxycodone ER 10mg PO Q12H for 3 days, Post-op/Post-Proc 164 (Given - Provider: Marcella Lozano RN)2102 (Given - Provider: Aidee Field, RICARDO) senna-docusate (SENOKOT-S) 8.6-50 MG per tablet 2 tablet 2 tablet, Oral, 2 TIMES DAILY NEEDED, Starting on Thu07/07/23 at 1637, Until Thu07/08/23 at 1920, constipation, Post-op/Post-Proc Sodium chloride 0.9 % irrigation (CANCELED) NEEDED, Starting on Thu07/07/23 at 1432, Until 07/07/23 at 1539, Intra-op/Intra-Proc 1432 (Given - Provider: Miko Ohara MD - Comment: given to sterile field) sodium phosphate w/sodium biphosphate (FLEETS) enema 1 enema 1 enema, Rectal, DAILY NEEDED, Starting on Thu07/07/23 at 1637, Until Thu07/08/23 at 1920, Refractory Constipation, use per package instructions, Post-op/Post-Proc tranexamic acid (LYSTEDA) tablet 1,950 mg (COMPLETED) 1,950 mg, Oral, ONCE DIRECTED, 1 dose, Starting on Thu07/07/23 at 1003, Until e 07/07/23 at 1042, See admin instructions, Administer 2 hours preop, Pre-op/Pre-Proc 1042 (Given - Provider: Chelsea Bledsoe RN) Zolpidem (AMBIEN) tablet 5 mg 5 mg, Oral, DAILY AT BEDTIME NEEDED, Starting on Thu07/07/23 at 1637, Until Thu07/08/23 at 1920, Sleep, Post-op/Post-Proc FOR RECORDS PERTAINING TO PATIENTS WHO ARE [...] BE BASED ON THE PRIMARY CLINICAL RECORDS. [facility]. provides no warranty or guarantee of the accuracy or completeness of information in this document.
== END 2023-11-04 12:35 | disposition home or self-care (01) ==
LOC: PM 12:34
PROVIDERS: PCP Family Medicine; Visit Provider Nurse Practitioner
DX: M46.1 Sacroiliitis, not elsewhere classified (principal); M47.816 Spondylosis without myelopathy or radiculopathy, lumbar region
CPT/HCPCS: G0463

== ENCOUNTER 2023-12-14 06:39 | Day surgery (SDC) | payer MEDICARE, SELFPAY ==
--- OUTSIDE RECORDS SUMMARY | 2023-12-14 06:45 | XMS_ITS | CCD ---
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 Name Role Phone PHYSICIAN, DEFAULT Unavailable Unavailable [...] Unavailable Elliot Starks MD Primary Care Provider [phone] MD Elliot Starks Attending Provider Elliot Starks [...] Provider Elliot Starks MD Primary Care Provider STARKS, ELLIOT E Primary Care Unavailable BLANTON, EILEEN Attending Unavailable BLANTON, EILEEN Attending Unavailable BLANTON, EILEEN Referring Unavailable STARKS, ELLIOT E Primary Care Unavailable DONNA DIAZ Attending Unavailable STARKS, ELLIOT E Referring Unavailable STARKS, ELLIOT E Primary Care Unavailable SIMBA, MIKO E Attending Unavailable STARKS, ELLIOT E Referring Unavailable [...] Allergy Type Date of Onset Reaction(s) Facility (17 sources) Acetaminophen / HYDROcodone; Translations: [HYDROCODONE-ACET AMINOPHEN] Drug Allergy 03-19-20 17 Unknown, Itching, Rash, Nausea Only [facility] (20 sources) Baclofen; Translations: [baclofen] Drug Allergy 03-19-20 17 Unknown, Itching, Rash [facility] (14 sources) Codeine; Translations: [codeine] Drug Allergy 08-09-19 09 Unknown, Itching, Rash [facility] (19 sources) levoFLOXacin; Translations: [levofloxacin] Drug Allergy 03-19-20 17 Unknown, Itching, Rash, Nausea Only [facility] (20 sources) Morphine; Translations: [morphine] Drug Allergy 08-09-[address] [facility] (14 sources) oxyCODONE Drug Allergy 12-03-19 16 [facility] (4 sources) Penicillins; Translations: [PENICILLINS] Drug Allergy 12-03-19 16 [facility] (1 source) Baclofen Drug Allergy [facility] (1 source) Codeine Drug Allergy [facility] (14 sources) levoFLOXacin; Translations: [Levaquin] Drug Allergy Unknown [facility] (1 source) Morphine Drug Allergy 05-04-18 94 [facility] (1 source) oxyCODONE Drug Allergy 05-04-19 05 [facility] (1 source) Penicillins Drug allergy (disorder) 05-04-18 93 [facility] (3 sources) traMADol; Translations: [Ultram] Drug Allergy [facility] (11 sources) Codeine Drug Allergy Unknown [facility] Other (14 sources) Penicillin; Translations: [penicillin] Drug Allergy Unknown [facility] (20 sources) traMADol; Translations: [tramadol] Drug Allergy 07-13-19 20 Itching [facility] (18 sources) zolpidem; Translations: [zolpidem] Drug Allergy 07-04-19 23 Unknown, Hives [facility] (6 sources) Penicillins Drug Allergy 12-03-19 16 Hives, Rash [facility] (1 source) Non-steroidal anti-inflammatory agent Drug allergy 02-02-20 13 Unknown [facility] Other (7 sources) sulfADIAZINE; Translations: [SULFADIAZINE] Drug Allergy 07-04-19 23 Comment:Sulfa [facility] Other (1 source) Ultram *ANALGESICS - OPIOID* Propensity to adverse reactions Unknown [facility] Other (1 source) Vioxx *ANALGESICS - ANTI-INFLAMMATORY * Propensity to adverse reactions Unknown [facility] Other (1 source) Penicillin G Benzathine & Proc Drug allergy Unknown [facility] Other (1 source) Morphine Sulfate (Concentrate) *ANALGESICS - OPIOI Propensity to adverse reactions Unknown [facility] Other (1 source) Allergies Reconciled Propensity to adverse reactions Unknown [facility] Other (1 source) patient allergy list reviewed by nurse or physicia Propensity to adverse reactions 02-02-20 13 Comment:Done [facility] Other (1 source) Vicodin *ANALGESICS - OPIOID* Propensity to adverse reactions Unknown [facility] Other (2 sources) calcitonin Drug allergy 10-28-19 24 Unknown, [facility] (10 sources) Penicillins Propensity to adverse reactions to drug 05-14-19 24 [facility] (1 source) Acetaminophen / HYDROcodone; Translations: [Vicodin] Drug Allergy [facility] (1 source) Adhesive Tape; Translations: [Tape] Propensity to adverse reactions (disorder) [facility] (5 sources) Adhesive agent; Translations: [ADHESIVE] Propensity to adverse reactions to drug 07-04-19 23 [facility] (5 sources) penicillin G benzathine / penicillin G procaine; Translations: [PENICILLIN G BENZATHIN,PROCAIN ] Drug Allergy 07-04-19 23 [facility] (6 sources) rofecoxib; Translations: [ROFECOXIB] Drug Allergy 07-04-19 23 [facility] (1 source) Morphine; Translations: [Morphine Sulfate] Drug Allergy [facility] Repository (1 source) zolpidem; Translations: [Ambien] Drug Allergy [facility] Rep[facility] (8 sources) Latex Propensity to adverse reactions to drug 06-19-19 24 [facility] (8 sources) *Adhesive Tape Propensity to adverse reactions 07-04-19 23 [facility] (6 sources) Cephalexin Drug Allergy 07-09-19 24 Nausea Only, Dry Mouth, [place] [facility] (1 source) Acetaminophen Drug Allergy 10-28-19 24 [facility] (1 source) HYDROcodone Drug Allergy 10-28-19 [facility] (1 source) Penicillin G Benzathine Allergy to substance 10-28-19 [facility] Medications Current Medications Medication Drug Class(es) [...] Jul, Active baclofen 10 mg oral tablet (15 sources) gamma-Aminobutyric Acid-ergic Agonist Start: 06-24-2023 take [...] 07/14/2023 Active clarithromycin 500 mg oral tablet (6 sources) Macrolide Antimicrobial Start: 07-23-2023 End: 07-22-2024 [...] 12:00am docusate sodium 100 mg oral capsule (8 sources) Start: 07-07-2023 End: 2023 take 1 capsule by mouth twice daily Docusate 100 MG capsule Take 1 capsule by mouth 2 times daily. 60 capsule 07/07/2023 Active estradiol 0.1 mg/ml vaginal cream (7 sources) Estrogen Start: 02-11-2023 ESTRACE VAGINAL 0.1 MG/GM cream See Instructions, 42.5 gm, Refill(s) 3, apply pea size amount to urethra/inner vagina 3x/week x 1 month, then 2x/week for maintainence, [facility]/pharmacy #[id number], 165, cm, 02/11/23 10:41:00 EDT, Height/Length Dosing, 77.5, kg, 02/11/23 10:41:00 EDT, Weight Dosing 02/11/2023 Active Start: 02-11-2023 Estrace 0.1 mg /g Cream See Instructions, 42.5 gm, Refill(s) 3, apply pea size amount to urethra/inner vagina 3x/week x 1 month, then 2x/week for maintainence, [facility]/pharmacy #[id number], 165, cm, 02/11/23 10:41:00 EDT, Height/Length Dosing, 77.5, kg, 02/11/23 10:41:00 EDT, Weight Dosing Start Date: 02/11/23 Status: Ordered flecainide acetate 50 mg oral tablet (10 sources) Antiarrhythmic Start: 10-28-2023 take 50 mg [...] Daily, # 30 tab(s), Refills(s) 11, Pharmacy: [facility]/pharmacy #[id number], 165, cm, 02/11/23 10:41:00 EDT, Height/Length Dosing, 77.5, kg, 02/11/23 10:41:00 EDT, Weight Dosing Start Date: 02/11/23 Status: Ordered Multiple Vitamin (multivitamin) capsule (6 sources) take 1 capsule by mouth once [...] Name:Neuveria vitamin 1 qd 0 Active NON-FORMULARY (6 sources) NON-FORMULARY Me d Name:Neuveria vitamin 1 qd Active omeprazole 40 mg delayed release oral capsule (20 sources) Proton Pump Inhibitor Start: 06-24-2023 take 40 mg by mouth once daily Omeprazole Active 40 MG PO Daily June 24, 2023 1:00am Start: 02-11-2023 omeprazole 40 mg Cap-DR Refills(s) 0 Start Date: 02/11/23 Status: Ordered take 20 mg by mouth once daily in the morning OMEPRAZOLE PO Take 20 mg by mouth daily. am Active Omeprazole (PRIL OSEC) 40 mg capsule Take 20 mg by mouth twice daily. 0 Active take 1 capsule by mo [...] Oct, Active SUMAtriptan 25 mg oral tablet (20 sources) Serotonin-1b and Serotonin-1d Receptor Agonist Start: [...] Active trospium chloride 20 mg oral tablet (18 sources) Cholinergic Muscarinic Antagonist Start: 06-29-2023 take [...] 2023 2:33pm Trospium Chlorid e Active Vitamins A,C,H-Pwer-Kylvcl (Preservision Areds) 4,296 mcg-226 mg-90 mg capsule (1 source) Start: 10-28-2023 take 1 capsule by mouth twice daily Vitamins A,C,L-Yuee-Abcduz (Preservision Areds) 4,296 mcg-226 mg-90 mg capsule Active 1 CAP PO Twice daily October 28, 2023 12:00am Completed/Discontinued Medications Medication Drug Class(es) Dates Sig (Normalized) Sig (Original) acetaminophen 500 mg oral tablet (9 sources) Start: 07-07-2023 End: 2023 take 1 tablet by mouth every six hours 1,000 mg, Oral, EVERY 6 HOURS NON-STANDARD, First dose on Thu07/07/23 at 1845, Until Discontinued, Post-op/Post-Proc Start: 07-07-2023 take [address] [facility] every four hours as needed Acetaminophen [...] 08/31/2017 Active take [address] [facility] every twelve hours apixaban 2.5 MG [...] Post-op/Post-Proc docusate sodium 50 mg / sennosides, mcc 8.6 mg oral tablet (1 source) Start: [...] 2:32pm oxyCODONE hydrochloride 5 mg oral tablet (5 sources) Opioid Agonist Start: 07-07-2023 End: 2023 [...] Coronary arteriosclerosis; Translations: [Atherosclerotic heart disease of [place] coronary artery without angina pectoris] Onset: 07-29-2021 [...] 05-06-2023 Chronic Other aftercare (1 source) Other senior care (current) drug therapy; Translations: [OTH NURSING HOME CURRENT DRUG THERAPY] Onset: 06-11-2022 Episodic Other aftercare (1 source) Long-term current use of anticoagulant; Translations: [[facility] (current) use of anticoagulants] Onset: 02-11-2023 Episodic Other bone disease and musculoskeletal deformities (12 sources) Other specified disorders of bone, shoulder; Translations: [Pain of right scapula] Episodic Other connective tissue disease (8 sources) History of repair of hip joint; Translations: [Presence of unspecified artificial hip joint] Onset: 2023 2023 Chronic Other connective tissue disease (1 source) History of total replacement of right hip joint; Translations: [Presence of right artificial hip joint] 11-16-2023 Chronic Other diseases of bladder and urethra [...] Range Facility MAMM SCREENING BILATERAL W C blocker hand 09-30-2023 MAMM SCREENING BILATERAL W CAD MAMM [...] ACR Normal [facility] AUSTENIngrid 09-17-2023 CNPN Telephone (HEMASA) BETTIE BURNS ([id number]) 1945 F Date Time Provider Department 09/17/23 MATT ADAMS During your visit today, we recorded the following information about you: Matt Adams RN 09/17/2023 10:20 AM Signed Pt called to request yearly Mammogram order I have pended order as previously completed Pt requests to fax to Lucero Lemat [phone] BRM/HM: please review and sign if agreeable RICARDO Lopez Natalie, RN 09/17/2023 1:31 PM [facility]igned [facility] Matt Adams RN Allergies As [...] Order(s):[facility] SCREENING W YAW [[id number]] Order #: [id number] FUTURE Prescriptions as of 09/17/2023 - lisinopril [...] Status:Closed by ANDREW CHOI on 09/17/23 Normal [facility] [employer] SMEARon 08-22-2023 ACID FAST CULTURE Negative Normal [facility] Comment on above: Result Comment: No a rosy fast bacilli isolated after 6 weeks. PERFORMED AT [facility] Performed By: #### U MAC, IC #### Testing performed at [address] [address] *RFLX-FUNGUSon 08-06-2023 RESULT 1 Comment Normal [facility] Comment on above: Result Comment: No y east or mold isolated after 4 weeks. PERFORMED AT [facility] Performed By: #### U MAC, UMIC #### Testing performed at [address] [address] FUNGUS CULTUREon 08-06-2023 FUNGUS CULTURE Final report Normal [facility] Comment on above: Result Comment: PERF ORMED AT [facility] Performed By: #### U MAC, UMIC #### Testing performed at [facility] [address] [facility] [place] [address] CBC AND AUTO DIFFon 07-15-19 24 ABSOLUTE BASOPHIL 0.1 X10E9/L Normal 0.0-0.2 [facility] Comment on above: Performed By: #### C BCA, 28765-8, PINR, 68029-5, CMP, 93353-8, 33809-9, THYR, 72724-3 #### [facility] ([id number]) [address] [place] [address] ABSOLUTE NEUTROPHIL 2.8 X10E9/L Normal 1.5-6.6 [facility] Comment on above: Performed By: #### C BCA, 15309-5, PINR, 93724-0, CMP, 36656-5, 47431-7, THYR, 01173-6 #### [facility] ([id number]) [address] [place] [address]48 Basophils/100 WBC (Bld) 1.3 % Normal [facility] Comment on above: Performed By: #### C BCA, 74685-5, PINR, 61903-0, CMP, 06858-3, 86132-8, THYR, 47838-9 #### [facility] ([id number]) [address] [place] [address] Eosinophils (Bld) [#/Vol] 0.7 10*3/uL High 0.0-0.4 [facility] Comment on above: Performed By: #### C BCA, 73818-4, PINR, 06956-3, CMP, 48828-1, 07180-1, THYR, 17246-5 #### [facility] ([id number]) [address] [place] [address] 80473 Eosinophils/100 WBC (Bld) 11.9 % Normal [facility] Comment on above: Performed By: #### C BCA, 66053-0, PINR, 88958-4, CMP, 99174-6, 24705-7, THYR, 97287-2 #### [facility] ([id number]) [address] [place] [address] 758[address] Erythrocyte distribution width (RBC) [Ratio] 13.5 % Normal 11.5-15.0 [facility] Comment on above: Performed By: #### C BCA, 50094-9, PINR, 60948-1, CMP, 19321-5, 86928-2, THYR, 10834-3 #### [facility] ([id number]) [address] [place] [address] 30344 Hematocrit (Bld) [Volume fraction] 38.5 % Normal 35-47 [facility] Comment on above: Performed By: #### C BCA, 87436-9, PINR, 90514-4, CMP, 38354-0, 14062-0, THYR, 00732-0 #### [facility] ([id number]) [address] [place] [address] Hemoglobin (Bld) [Mass/Vol] 13.3 g/dL Normal 11.7-15.5 [facility] Comment on above: Performed By: #### C BCA, 15158-0, PINR, 17988-2, CMP, 59087-2, 21062-7, THYR, 37145-9 #### [facility] ([id number]) [address] [place] [address] Lymphocytes (Bld) [#/Vol] 1.8 10*3/uL Normal 1.0-3.5 [facility] Comment on above: Performed By: #### C BCA, 14636-4, PINR, 00415-5, CMP, 16501-7, 46091-5, THYR, 54679-0 #### [facility] ([id number]) [address] [place] [address] 29430 Lymphocytes/100 WBC (Bld) 29.4 % Normal [facility] Comment on above: Performed By: #### C BCA, 39957-6, PINR, 54332-1, CMP, 31355-0, 46484-6, THYR, 22898-6 #### [facility] ([id number]) [address] [place] [address] 50796 MCH (RBC) [Entitic mass] 32.8 pg Normal 27-34 [facility] Comment on above: Performed By: #### C BCA, 76161-4, PINR, 03739-5, CMP, 11618-5, 01685-6, THYR, 54757-7 #### [facility] ([id number]) [address] [place] [address] 15791 MCHC (RBC) [Mass/Vol] 34.4 g/dL Normal 32-36 [facility] Comment on above: Performed By: #### C BCA, 31595-5, PINR, 01906-9, CMP, 43837-4, 20310-1, THYR, 26421-2 #### [facility] ([id number]) [address] [place] [address] 09488 MCV (RBC) [Entitic vol] 95 fL Normal 80-100 [facility] Comment on above: Performed By: #### C BCA, 61320-4, PINR, 89065-0, CMP, 41635-6, 03851-0, THYR, 24785-1 #### [facility] ([id number]) [address] [place] [address] 39990 Monocytes (Bld) [#/Vol] 0.8 10*3/uL Normal 0-0.9 [facility] Comment on above: Performed By: #### C BCA, 56656-8, PINR, 90216-8, CMP, 93878-6, 01848-5, THYR, 79511-8 #### [facility] ([id number]) [address] [place] [address] 09542 Monocytes/100 WBC (Bld) 13.2 % Normal [facility] Comment on above: Performed By: #### C BCA, 27617-6, PINR, 12989-4, CMP, 34698-7, 85459-6, THYR, 44249-8 #### [facility] ([id number]) [address] [place] [address] 93035 Neutrophils/100 WBC (Bld) 44.2 % Normal [facility] Comment on above: Performed By: #### C BCA, 78210-7, PINR, 49124-9, CMP, 05100-8, 81088-6, THYR, 99972-9 #### [facility] ([id number]) [address] [place] [address] 95493 Platelet mean volume (Bld) [Entitic vol] 6.9 fL Low 7-12 [facility] Comment on above: Performed By: #### C BCA, 60882-8, PINR, 79163-4, CMP, 42666-1, 23466-6, THYR, 20325-2 #### [facility] ([id number]) [address] [place] [address] 22421 Platelets (Bld) [#/Vol] 340 10*3/uL Normal 150-450 [facility] Comment on above: Performed By: #### C BCA, 83845-2, PINR, 89355-4, CMP, 81165-6, 66007-2, THYR, 60286-4 #### [facility] ([id number]) [address] [place] [address] 61130 RBC COUNT 4.05 X10E12/L Normal 3.80-5.20 [facility] Comment on above: Performed By: #### C BCA, 47614-6, PINR, 66150-2, CMP, 56598-9, 13102-6, THYR, 62288-6 #### [facility] ([id number]) [address] [place] [address] 34926 WBC (Bld) [#/Vol] 6.2 10*3/uL Normal 4.0-11.0 [facility] Comment on above: Performed By: #### C BCA, 75350-7, PINR, 01972-7, CMP, 50646-5, 64252-8, THYR, 87516-4 #### [facility] ([id number]) [address] [place] [address] 84981 COMPREHENSIVE METABOLIC PANE Roland 07-15-2023 Albumin [Mass/Vol] 3.5 g/dL Normal 3.2-5.3 [facility] Comment on above: Performed By: #### C BCA, 20002-0, PINR, 14268-0, CMP, 67639-4, 85059-7, THYR, 00887-0 #### [facility] ([id number]) [address] [place] [address] 54782 ALP [Catalytic activity/Vol] 52 U/L Normal 39-130 [facility] Comment on above: Performed By: #### C BCA, 58390-9, PINR, 24295-1, CMP, 17615-4, 09204-8, THYR, 07163-0 #### [facility] ([id number]) [address] [place] [address] 80053 ALT [Catalytic activity/Vol] 13 U/L Normal 0-31 [facility] Comment on above: Performed By: #### C BCA, 37299-2, PINR, 40104-0, CMP, 68429-6, 34862-4, THYR, 91070-2 #### [facility] ([id number]) [address] [place] [address] 82375 Anion gap [Moles/Vol] 10 mmol/L Normal 5-15 [facility] Comment on above: Performed By: #### C BCA, 97410-1, PINR, 21083-1, CMP, 07542-1, 00264-4, THYR, 40276-4 #### [facility] ([id number]) [address] [place] [address] 26170 AST [Catalytic activity/Vol] 24 U/L Normal 0-41 [facility] Comment on above: Performed By: #### C BCA, 75556-2, PINR, 55586-8, CMP, 55625-2, 70084-2, THYR, 45223-0 #### [facility] ([id number]) [address] [place] [address] 84909 Bilirubin [Mass/Vol] 0.7 mg/dL Normal 0.3-1.2 [facility] Comment on above: Performed By: #### C BCA, 26268-0, PINR, 78497-0, CMP, 62753-8, 14231-9, THYR, 35111-6 #### [facility] ([id number]) [address] [place] [address] 04663 Calcium [Mass/Vol] 9.4 mg/dL Normal 8.5-10.5 [facility] Comment on above: Performed By: #### C BCA, 23360-3, PINR, 84884-1, CMP, 64682-1, 39705-0, THYR, 77339-2 #### [facility] ([id number]) [address] [place] [address] 50808 Chloride [Moles/Vol] 102 mmol/L Normal 98-109 [facility] Comment on above: Performed By: #### C BCA, 73955-3, PINR, 16106-9, CMP, 69680-2, 93956-1, THYR, 66836-5 #### [facility] ([id number]) [address] [place] [address] 05056 CO2 [Moles/Vol] 27 mmol/L Normal 22-32 [facility] Comment on above: Performed By: #### C BCA, 37068-4, PINR, 30769-3, CMP, 54845-3, 65194-8, THYR, 35851-2 #### [facility] ([id number]) [address] [place] [address] 10524 Creatinine [Mass/Vol] 1.21 mg/dL High 0.40-1.00 [facility] Comment on above: Result Comment: METH OD TRACEABLE TO IDMS STANDARD Performed By: #### C BCA, 61771-5, PINR, 59184-0, CMP, 31685-8, 72297-4, THYR, 57036-0 #### [facility] ([id number]) [address] [place] [address] 25970 GFR/1.73 sq M.predicted among non-blacks MDRD (S/P/Bld) [Vol rate/Area] 46 mL/min/{1.73_m2} Low >59 [facility] Comment on above: Result Comment: Reported eGFR is based on the CKD-EPI 2020 equation that does not use a race coefficient. Performed By: #### C BCA, 22057-2, PINR, 36655-3, CMP, 42677-3, 54763-1, THYR, 58886-1 #### [facility] ([id number]) [address] [place] [address] 25468 Glucose [Mass/Vol] 120 mg/dL High 65-99 [facility] Comment on above: Performed By: #### C BCA, 42533-8, PINR, 38439-8, CMP, 46267-2, 53510-9, THYR, 71829-8 #### [facility] ([id number]) [address] [place] [address] 68887 Potassium [Moles/Vol] 4.0 mmol/L Normal 3.5-5.0 [facility] Comment on above: Performed By: #### C BCA, 52387-1, PINR, 82438-8, CMP, 18539-8, 67402-6, THYR, 86936-3 #### [facility] ([id number]) [address] [place] [address] 29370 Protein [Mass/Vol] 6.8 g/dL Normal 6.0-8.0 [facility] Comment on above: Performed By: #### C BCA, 64219-4, PINR, 25999-3, CMP, 64638-6, 95197-8, THYR, 77782-7 #### [facility] ([id number]) [address] [place] [address] 59743 Sodium [Moles/Vol] 139 mmol/L Normal 134-146 [facility] Comment on above: Performed By: #### C BCA, 26664-7, PINR, 29127-0, CMP, 77020-3, 94198-8, THYR, 10381-3 #### [facility] ([id number]) [address] [place] [address] 66018 Urea nitrogen [Mass/Vol] 31 mg/dL High 5-27 [facility] Comment on above: Performed By: #### C BCA, 86020-0, PINR, 44094-2, CMP, 90771-3, 61245-2, THYR, 89854-6 #### [facility] ([id number]) [address] [place] [address] 37830 Fibrin D-dimer DDU (PPP) [Ma ss/Vol]on 07-15-2023 D DIMER 220 ng/mL DDU Normal <255 [facility] Comment on above: Result Comment: Results <255 ng/mL DDU: The presence of a VTE can safely be excluded with a negative D-Dimer result and Wells score. A negative result doesn't exclude the possibility of DIC. The test be repeated along with other diagnostic tests if the patient's symptoms persist or worsen. [email or web address] Performed By: #### C BCA, 70077-8, PINR, 60207-9, CMP, 65946-9, 08442-3, THYR, 89651-9 #### [facility] ([id number]) [address] [place] [address] [place] [address] MAGNESIUMon 07-15-2023 Magnesium [Mass/Vol] 1.8 mg/dL Normal 1.8-2.6 [facility] Comment on above: Performed By: #### C BCA, 47889-5, PINR, 79261-4, CMP, 00378-8, 34032-7, THYR, 39776-2 #### [facility] ([id number]) [address] [place] [id number] Natriuretic peptide B [Mass/ Vol]on 07-15-2023 Natriuretic peptide B (Bld) [Mass/Vol] 119 pg/mL High <100.0 [facility] Comment on above: Performed By: #### C BCA, 02833-5, PINR, 06648-5, CMP, 03973-9, 34364-1, THYR, 34948-8 #### [facility] ([id number]) [address] [place] [address] [place] [address] PROTIME AND INRon 07-15-2023 INR Coag (PPP) [Relative time] 1.8 {INR} High 0.8-1.1 [facility] Comment on above: Performed By: #### C BCA, 38416-7, PINR, 93607-2, CMP, 15973-0, 80841-9, THYR, 80581-6 #### [facility] ([id number]) [address] [place] [address] [place] [address] PT Coag (PPP) [Time] 20.8 s High 9.8-13.2 [facility] Comment on above: Result Comment: NEW REFERENCE RANGE Performed By: #### C BCA, 77241-8, PINR, 12745-0, CMP, 83765-9, 87878-4, THYR, 56645-7 #### [facility] ([id number]) [address] [place] [address] THYROID PROFILEon 07-15-2023 Free T4 [Mass/Vol] 1.25 ng/dL Normal 0.61-1.60 [facility] Comment on above: Performed By: #### C BCA, 59043-0, PINR, 31215-6, CMP, 30061-9, 57989-9, THYR, 33850-8 #### [facility] ([id number]) [address] [place] [address] TSH 1.69 uIU/mL Normal 0.49-4.67 [facility] Comment on above: Performed By: #### C BCA, 04802-8, PINR, 37196-9, CMP, 08249-0, 42235-8, THYR, 79844-1 #### [facility] ([id number]) [address] [place] [address] TROPONIN Ion 07-15-2023 Troponin I.cardiac [Mass/Vol] 0.01 ng/mL Normal 0.00-0.04 [facility] Comment on above: Performed By: #### C BCA, 44808-3, PINR, 71041-1, CMP, 95206-9, 41806-1, THYR, 95373-8 #### [facility] ([id number]) [address] [place] [address] XR CHEST 2 VWSon 07-15-2023 XR CHEST 2 VWS XR CHEST 2 VWS History: chest pressure Exam/Technique: PA and lateral chest Comparison: None. Findings: There is no evidence of active pulmonary or pleural disease. Cardiac and mediastinal contours are within normal limits. Left-sided surgical clips. Granulomatous changes. IMPRESSION: No active pulmonary disease. Finalized by Adrian Ervin MD on 07/15/2023 1:14 PM Normal [facility] aPTT Coag (PPP) [Time]on aPTT Coag (Bld) [Time] 36 s Normal 26-37 [facility] Comment on above: Result Comment: NEW REFERENCE RANGE Performed By: #### C BCA, 25495-4, PINR, 87651-5, CMP, 44812-5, 94674-9, THYR, 49569-8 #### [facility] ([id number]) [address] [facility] [place] [address] AFB SMEARon 07-09-2023 ACID FAST SMEAR Negative Normal [facility] Comment on above: Result Comment: PERF ORMED AT [facility] Performed By: #### U MAC, UMIC #### Testing performed at [address] [address] BASIC METABOLIC PANELon Anion gap [Moles/Vol] 1 mmol/L MMOL/L [facility] Calcium [Mass/Vol] 8.7 mg/dL [facility] Chloride [Moles/Vol] 103 mmol/L [facility] Comment on above: Please note: Triglyc eride levels of 600mg/dL or higher may positively bias chloride results by approximately 2.1 mmol CO2 [Moles/Vol] 30 mmol/L [facility] Creatinine [Mass/Vol] 1.10 mg/dL [facility] GFR COMMENT Average GFR for 70+ years old = 75. [facility] Comment on above: Chronic Kidney disea se, GFR = <60. Kidney failure, GFR = <15. The GFR estimate is not adjusted for extreme body surface area or acute process, nor has it been validated for women or ethnic groups other than and . GFR/1.73 sq M.predicted among blacks MDRD (S/P/Bld) [Vol rate/Area] 62 mL/min/{1.73_m2} ml/min/1.73sq. m [facility] GFR/1.73 sq M.predicted among non-blacks MDRD (S/P/Bld) [Vol rate/Area] 51 mL/min/{1.73_m2} ml/min/1.73sq. m [facility] Glucose post fast [Mass/Vol] 141 mg/dL High [facility] Comment on above: NORMAL <100 mg/dL PREDIABETES 101-126 mg/dL DIABETES 126 mg/dL or higher Interpretation and review of laboratory results Abnormal [facility] Potassium [Moles/Vol] 3.8 mmol/L [facility] Sodium [Moles/Vol] 134 mmol/L Low [facility] Urea nitrogen [Mass/Vol] 30 mg/dL High [facility] BMP FASTINGon 2023 Anion gap [Moles/Vol] 1 mmol/L Normal [facility] Comment on above: Performed By: #### U MAC, UMIC #### Testing performed at [address] [address] Calcium [Mass/Vol] 8.7 mg/dL Normal 8.4-10.2 [facility] Comment on above: Performed By: #### U MAC, UMIC #### Testing performed at [address] [address] Chloride [Moles/Vol] 103 mmol/L Normal 98-107 [facility] Comment on above: Result Comment: Kirstine bryant note: Triglyceride levels of 600mg/dL or higher may positively bias chloride results by approximately 2.1 mmol Performed By: #### U MAC, UMIC #### Testing performed at [address] [address] CO2 [Moles/Vol] 30 mmol/L Normal 22-30 [facility] Comment on above: Performed By: #### U MAC, UMIC #### Testing performed at [address] [address] Creatinine [Mass/Vol] 1.10 mg/dL Normal 0.70-1.20 [facility] Comment on above: Performed By: #### U MAC, UMIC #### Testing performed at [address] [address] EST. GFR, 62 ml/min/1.73sq.m Normal [facility] Comment on above: Performed By: #### U MAC, UMIC #### Testing performed at [address] [address] EST. GFR,Non 51 ml/min/1.73sq.m Normal [facility] Comment on above: Performed By: #### U MAC, UMIC #### Testing performed at [address] [address] GFR Information Average GFR for 70+ years old = 75. Normal [facility] Comment on above: Result Comment: [employer] Professor juan diego Kidney disease, GFR = <60. Kidney failure, GFR = <15. The GFR estimate is not adjusted for extreme body surface area or acute process, nor has it been validated for women or ethnic groups other than and . Performed By: #### U MAC, UMIC #### Testing performed at [address] [address] Glucose [Mass/Vol] 141 mg/dL High 70-100 [facility] Comment on above: Result Comment: NORMAL <100 mg/dL PREDIABETES 101-126 mg/dL DIABETES 126 mg/dL or higher Performed By: #### U MAC, UMIC #### Testing performed at [address] [address] Potassium [Moles/Vol] 3.8 mmol/L Normal 3.5-5.1 [facility] Comment on above: Performed By: #### U MAC, UMIC #### Testing performed at [address] [address] Sodium [Moles/Vol] 134 mmol/L Low 137-145 [facility] Comment on above: Performed By: #### U MAC, UMIC #### Testing performed at [address] [address] Urea nitrogen [Mass/Vol] 30 mg/dL High 7-20 [facility] Comment on above: Performed By: #### U MAC, UMIC #### Testing performed at [address] [address] CBCon 2023 ABSOLUTE BAS 0.0 10*3/uL Normal 0.0-0.2 [facility] Comment on above: Performed By: #### U MAC, UMIC #### Testing performed at [address] [address] ABSOLUTE EOS 0.0 10*3/uL Normal 0.0-0.7 [facility] Comment on above: Performed By: #### U MAC, UMIC #### Testing performed at [address] [place] [address] ABSOLUTE NEUTROPHIL COUNT 5.2 10*3/uL Normal 1.4-6.5 [facility] Comment on above: Performed By: #### U MAC, UMIC #### Testing performed at [address] [place] [address] Basophils/100 WBC (Bld) 0.3 % Normal 0.0-2.0 [facility] Comment on above: Performed By: #### U MAC, UMIC #### Testing performed at [address] [place] [address] DTYPE AUTO DIFF Normal [facility] Comment on above: Performed By: #### U MAC, UMIC #### Testing performed at [address] [place] [address] Eosinophils/100 WBC (Bld) 0.0 % Normal 0.0-11.0 [facility] Comment on above: Performed By: #### U MAC, UMIC #### Testing performed at [address] [place] [address] Lymphocytes (Bld) [#/Vol] 1.1 10*3/uL Low 1.2-3.4 [facility] Comment on above: Performed By: #### U MAC, UMIC #### Testing performed at [address] [place] [address] Lymphocytes/100 WBC (Bld) 16.4 % Low 20.0-55.0 [facility] Comment on above: Performed By: #### U MAC, UMIC #### Testing performed at [address] [place] [address] Monocytes (Bld) [#/Vol] 0.3 10*3/uL Normal 0.0-0.7 [facility] Comment on above: Performed By: #### U MAC, UMIC #### Testing performed at [address] [place] [address] Monocytes/100 WBC (Bld) 4.3 % Normal 0.0-10.0 [facility] Comment on above: Performed By: #### U MAC, UMIC #### Testing performed at [address] [address] Neutrophils/100 WBC (Bld) 79.0 % High 37.0-75.0 [facility] Comment on above: Performed By: #### U MAC, UMIC #### Testing performed at [address] [address] Erythrocyte distribution width (RBC) [Ratio] 13.2 % Normal 11.5-14.5 [facility] Comment on above: Performed By: #### U MAC, UMIC #### Testing performed at [address] [address] Hematocrit (Bld) [Volume fraction] 33.6 % Low 36.0-48.0 [facility] Comment on above: Performed By: #### U MAC, UMIC #### Testing performed at [address] [address] Hemoglobin (Bld) [Mass/Vol] 12.0 g/dL Normal 12.0-16.0 [facility] Comment on above: Performed By: #### U MAC, UMIC #### Testing performed at [address] [address] MCH (RBC) [Entitic mass] 33.6 pg Normal 26.0-35.0 [facility] Comment on above: Performed By: #### U MAC, UMIC #### Testing performed at [address] [address] MCHC (RBC) [Mass/Vol] 35.6 g/dL Normal 27.0-37.0 [facility] Comment on above: Performed By: #### U MAC, UMIC #### Testing performed at [address] [address] MCV (RBC) [Entitic vol] 94.2 fL Normal 80.0-100.0 [facility] Comment on above: Performed By: #### U MAC, UMIC #### Testing performed at [address] [place] [address] Platelet mean volume (Bld) [Entitic vol] 7.0 fL Low 7.4-11.0 [facility] Comment on above: Performed By: #### U MAC, IC #### Testing performed at [address] [address] Platelets (Bld) [#/Vol] 226 10*3/uL Normal 130-400 [facility] Comment on above: Performed By: #### U MAC, UM #### Testing performed at [address] [address] RBC (Bld) [#/Vol] 3.57 10*6/uL Low 4.0-5.4 [facility] Comment on above: Performed By: #### U MAC, [facility] #### Testing performed at [address] [address] WBC (Bld) [#/Vol] 6.6 10*3/uL Normal 3.6-11.0 [facility] Comment on above: Performed By: #### U MAC, [facility] #### Testing performed at [address] [address] CBC, EDIF, PLATELETon 2023 ABSOLUTE BASOPHIL COUNT 0.0 10*3/uL 0.0 - 0.2 10*3/uL [facility] Basophils/100 WBC (Bld) 0.3 % 0.0 - 2.0 % [facility] Differential cell count method Nom (Bld) AUTO DIFF % [facility] Eosinophils (Bld) [#/Vol] 0.0 10*3/uL 0.0 - 0.7 10*3/uL [facility] Eosinophils/100 WBC (Bld) 0.0 % 0.0 - 11.0 % [facility] Erythrocyte distribution width (RBC) [Ratio] 13.2 % 11.5 - 14.5 % [facility] Hematocrit (Bld) [Volume fraction] 33.6 % Low 36.0 - 48.0 % [facility] Hemoglobin (Bld) [Mass/Vol] 12.0 g/dL [facility] Interpretation and review of laboratory results Abnormal [facility] Lymphocytes (Bld) [#/Vol] 1.1 10*3/uL Low 1.2 - 3.4 10*3/uL [facility] Lymphocytes/100 WBC (Bld) 16.4 % Low 20.0 - 55.0 % [facility] MCH (RBC) [Entitic mass] 33.6 pg 26.0 - 35.0 PG [facility] MCHC (RBC) [Mass/Vol] 35.6 g/dL [facility] MCV (RBC) [Entitic vol] 94.2 fL [facility] Monocytes (Bld) [#/Vol] 0.3 10*3/uL 0.0 - 0.7 10*3/uL [facility] Monocytes/100 WBC (Bld) 4.3 % 0.0 - 10.0 % [facility] Neutrophils (Bld) [#/Vol] 5.2 10*3/uL 1.4 - 6.5 10*3/uL [facility] Neutrophils/100 WBC (Bld) 79.0 % High 37.0 - 75.0 % [facility] Platelet mean volume (Bld) [Entitic vol] 7.0 fL Low [facility] Platelets (Bld) [#/Vol] 226 10*3/uL 130 - 400 10*3/uL [facility] RBC (Bld) [#/Vol] 3.57 10*6/uL Low 4.0 - 5.4 10*6/uL [facility] WBC (Bld) [#/Vol] 6.6 10*3/uL 3.6 - 11.0 10*3/uL [facility] ANAEROBIC CULTUREon 07-07-19 24 ANAEROBIC CULTURE SPECIMEN DESCRIPTION HIP RIGHT SPECIAL REQUESTS RIGHT HIP SUTURE GRAM SMEAR NO * Result Note: WBC'S SEEN * * Result Note: NO ORGANISMS SEEN * CULTURE NO GROWTH 5 DAYS * Result Note: Testing performed at [place] [address] * REPORT STATUS 07/12/2023 * Result Note: FINAL * Normal [facility] Comment on above: Performed By: #### U MAC, IC #### [place] [address] ANAEROBIC CULTURE SPECIMEN DESCRIPTION HIP RIGHT SPECIAL REQUESTS RIGHT HIP INCISIONAL FLUID GRAM SMEAR NO * Result Note: WBC'S SEEN * * Result Note: NO ORGANISMS SEEN * CULTURE NO GROWTH 5 DAYS * Result Note: Testing performed at [place] [address] * REPORT STATUS 07/12/2023 * Result Note: FINAL * Normal [facility] Comment on above: Performed By: #### A NER #### Testing performed at [address] [address] Testing performed at [facility] [address] [place] [address] BODY FLUID CELL COUNTon 03 Appearance (Body fld) HAZY [facility] Color (Body fld) LIGHT YELLOW [facility] RBC Auto (Body fld) [#/Vol] 3376 /CMM [facility] Specimen source Nom (Body fld) SYNOVIAL FLUID [facility] WBC (Body fld) [#/Vol] 57 10*3/uL /CMM [facility] DIFFERENTIAL, FLUIDon 2023 BASOPHILS, FLUID 2 % [facility] Comment on above: NO REFERENCE RANGE E STABLISHED Eosinophils/100 WBC (Body fld) 4 % [facility] Comment on above: NO REFERENCE RANGE E STABLISHED Lymphocytes/100 WBC (Body fld) 22 % [facility] Comment on above: NO REFERENCE RANGE E STABLISHED MESOTHELIAL CELLS, FLUID 8 % [facility] Comment on above: NO REFERENCE RANGE E STABLISHED Monocytes+Macrophag es/100 WBC Manual cnt (Body fld) 48 % [facility] Comment on above: NO REFERENCE RANGE E STABLISHED Neutrophils/100 WBC (Body fld) 16 % [facility] Comment on above: NO REFERENCE RANGE E STABLISHED [facility] FLUID CELL COUNTon 4 FLUID APPEARANCE HAZY Normal [facility] Comment on above: Performed By: #### U LIYAH DONOVAN #### Testing performed at [address] [place] [address] FLUID COLOR LIGHT YELLOW Normal [facility] Comment on above: Performed By: #### U MAC UMIC #### Testing performed at [address] [address] FLUID RBC'S 3376 /CMM [facility] Comment on above: Performed By: #### U MAC UMIC #### Testing performed at [address] [address] FLUID TYPE SYNOVIAL FLUID Normal [facility] Comment on above: Performed By: #### U MAC, UMIC #### Testing performed at [address] [place] [address] TOTAL NUCLEATED CELLS 57 /CMM Normal [facility] Comment on above: Performed By: #### U MAC, UMIC #### Testing performed at [address] [address] FLUID DIFFERENTIALon 024 FLUID BASOPHILS 2 % Normal [facility] Comment on above: Result Comment: NO R EFERENCE RANGE ESTABLISHED Performed By: #### F DIFF #### Testing performed at [address] [place] [address] FLUID EOSINOPHILS 4 % Normal [facility] Comment on above: Result Comment: NO R EFERENCE RANGE ESTABLISHED Performed By: #### F DIFF #### Testing performed at [address] [address] FLUID LYMPHOCYTES 22 % Normal [facility] Comment on above: Result Comment: NO R EFERENCE RANGE ESTABLISHED Performed By: #### F DIFF #### Testing performed at [address] [place] [address] FLUID MESOTHELIALS 8 % Normal [facility] Comment on above: Result Comment: NO R EFERENCE RANGE ESTABLISHED Performed By: #### F DIFF #### Testing performed at [address] [place] [address] FLUID MONO/MACRO 48 % Normal [facility] Comment on above: Result Comment: NO R EFERENCE RANGE ESTABLISHED Performed By: #### F DIFF #### Testing performed at [address] [address] FLUID NEUTROPHILS 16 % Normal [facility] Comment on above: Result Comment: NO R EFERENCE RANGE ESTABLISHED Performed By: #### F DIFF #### Testing performed at [address] [address] MRSA SCREENon 07-07-2023 MRSA DNA CHRISTOPHER+probe Ql (Unsp spec) Negative Normal NEGATIVE [facility] Comment on above: Performed By: #### M RSAST #### Testing performed at [address] [address] STAPH AUREUS SCREEN Negative Normal NEGATIVE [facility] Comment on above: Result Comment: TEST ING PERFORMED BY PCR Performed By: #### M RSAST #### Testing performed at [address] [address] REPEAT ABO/RHon 07-07-2023 REPEAT ABO/RH Positive Normal [facility] Comment on above: Performed By: #### U VENUS, MARIVELIC #### Testing performed at [address] [address] REPEAT ABO/RH (D) TYPINGon 0 07-07-2023 ABO and Rh group Nom (Bld ) Positive [facility] SCREEN: MRSA ONLY, NARES (IS OLATION SCREEN)on 07-07-2023 MRSA isol Org specific cx Ql (Nose) Negative NEGATIVE [facility] STAPHYOCOCCUS AUREUS BY PCR Negative NEGATIVE [facility] [employer] Comment on above: TESTING PERFORMED BY PCR [facility] WOUND CULTUREon 07-07-2023 WOUND CULTURE SPECIMEN DESCRIPTION HIP RIGHT SPECIAL REQUESTS RIGHT HIP INCISIONAL FLUID GRAM SMEAR NO * Result Note: WBC'S SEEN * * Result Note: NO ORGANISMS SEEN * CULTURE NO GROWTH 5 DAYS * Result Note: Testing performed at [place], [place] [address] * REPORT STATUS 07/12/2023 * Result Note: FINAL * Normal [facility] Comment on above: Performed By: #### U LIYAH DONOVAN #### Testing performed at [address] [address] XR PELVIS 1-2 VIEWSon 2023 XR PELVIS [...] other acute bony abnormality is seen. Normal [facility] XR Pelvis 2 Viewson 07-07-19 FINDINGS/IMPRESSION: 1. [...] or other acute bony abnormality is seen. [facility] Radiology Study observation (narrative) [facility] XR Pelvis 2 ViewsOrdered By: Parveen Mason on 07-07-2023 [facility] Work Phone: CBCon 06-25-2023 ABSOLUTE BAS 0.1 10*3/uL Normal 0.0-0.2 [facility] Comment on above: Performed By: #### U MAC, UMIC #### Testing performed at [address] [address] ABSOLUTE EOS 0.1 10*3/uL Normal 0.0-0.7 [facility] Comment on above: Performed By: #### U MAC, UMIC #### Testing performed at [address] [address] ABSOLUTE NEUTROPHIL COUNT 4.3 10*3/uL Normal 1.4-6.5 [facility] Comment on above: Performed By: #### U MAC, UMIC #### Testing performed at [address] [address] Basophils/100 WBC (Bld) 0.9 % Normal 0.0-2.0 [facility] Comment on above: Performed By: #### U MAC, UMIC #### Testing performed at [address] [address] DTYPE AUTO DIFF Normal [facility] Comment on above: Performed By: #### U MAC, UMIC #### Testing performed at [address] [address] Eosinophils/100 WBC (Bld) 1.2 % Normal 0.0-11.0 [facility] Comment on above: Performed By: #### U MAC, UMIC #### Testing performed at [address] [address] Lymphocytes (Bld) [#/Vol] 2.5 10*3/uL Normal 1.2-3.4 [facility] Comment on above: Performed By: #### U MAC, UMIC #### Testing performed at [address] [address] Lymphocytes/100 WBC (Bld) 32.3 % Normal 20.0-55.0 [facility] Comment on above: Performed By: #### U MAC, UMIC #### Testing performed at [address] [address] Monocytes (Bld) [#/Vol] 0.8 10*3/uL High 0.0-0.7 [facility] Comment on above: Performed By: #### U MAC, UMIC #### Testing performed at [address] [address] Monocytes/100 WBC (Bld) 10.1 % High 0.0-10.0 [facility] Comment on above: Performed By: #### U MAC, UMIC #### Testing performed at [address] [address] Neutrophils/100 WBC (Bld) 55.5 % Normal 37.0-75.0 [facility] Comment on above: Performed By: #### U MAC, UMIC #### Testing performed at [address] [address] Erythrocyte distribution width (RBC) [Ratio] 13.5 % Normal 11.5-14.5 [facility] Comment on above: Performed By: #### U MAC, UMIC #### Testing performed at [address] [address] Hematocrit (Bld) [Volume fraction] 43.9 % Normal 36.0-48.0 [facility] Comment on above: Performed By: #### U MAC, UMIC #### Testing performed at [address] [address] Hemoglobin (Bld) [Mass/Vol] 15.0 g/dL Normal 12.0-16.0 [facility] Comment on above: Performed By: #### U MAC, UMIC #### Testing performed at [address] [address] MCH (RBC) [Entitic mass] 32.6 pg Normal 26.0-35.0 [facility] Comment on above: Performed By: #### U MAC, UMIC #### Testing performed at [address] [address] MCHC (RBC) [Mass/Vol] 34.0 g/dL Normal 27.0-37.0 [facility] Comment on above: Performed By: #### U MAC, UMIC #### Testing performed at [address] [address] MCV (RBC) [Entitic vol] 95.8 fL Normal 80.0-100.0 [facility] Comment on above: Performed By: #### U MAC, UMIC #### Testing performed at [address] [address] Platelet mean volume (Bld) [Entitic vol] 7.3 fL Low 7.4-11.0 [facility] Comment on above: Performed By: #### U MAC, UMIC #### Testing performed at [address] [address] Platelets (Bld) [#/Vol] 286 10*3/uL Normal 130-400 [facility] Comment on above: Performed By: #### U MAC, UMIC #### Testing performed at [address] [address] RBC (Bld) [#/Vol] 4.59 10*6/uL Normal 4.0-5.4 [facility] Comment on above: Performed By: #### U MAC, UMIC #### Testing performed at [address] [address] WBC (Bld) [#/Vol] 7.8 10*3/uL Normal 3.6-11.0 [facility] Comment on above: Performed By: #### U MAC, UMIC #### Testing performed at [address] [address] CMP FASTINGon 06-25-2023 A:G RATIO 1.4 RATIO Normal [facility] Comment on above: Performed By: #### U MAC, UMIC #### Testing performed at [address] [address] ALBUMIN 4.4 G/dl Normal 3.5-5.0 [facility] Comment on above: Performed By: #### U MAC, UMIC #### Testing performed at [address] [address] ALP [Catalytic activity/Vol] 54 U/L Normal 38-126 [facility] Comment on above: Performed By: #### U MAC, UMIC #### Testing performed at [address] [address] ALT [Catalytic activity/Vol] 22 U/L Normal <35 [facility] Comment on above: Performed By: #### U MAC, UMIC #### Testing performed at [address] [address] AST [Catalytic activity/Vol] 32 U/L Normal 14-36 [facility] Comment on above: Performed By: #### U MAC, UMIC #### Testing performed at [address] [address] Bilirubin [Mass/Vol] 0.5 mg/dL Normal 0.2-1.3 [facility] Comment on above: Performed By: #### U MAC, UMIC #### Testing performed at [address] [address] Calcium [Mass/Vol] 9.9 mg/dL Normal 8.4-10.2 [facility] Comment on above: Performed By: #### U MAC, UMIC #### Testing performed at [address] [address] Chloride [Moles/Vol] 100 mmol/L Normal 98-107 [facility] Comment on above: Result Comment: Kristine bryant note: Triglyceride levels of 600mg/dL or higher may positively bias chloride results by approximately 2.1 mmol Performed By: #### U MAC, UMIC #### Testing performed at [address] [address] CO2 [Moles/Vol] 33 mmol/L High 22-30 [facility] Comment on above: Performed By: #### U MAC, UMIC #### Testing performed at [address] [address] Creatinine [Mass/Vol] 1.10 mg/dL Normal 0.70-1.20 [facility] Comment on above: Performed By: #### U MAC, UMIC #### Testing performed at [address] [address] EST. GFR, 62 ml/min/1.73sq.m Kerbs [facility] Comment on above: Performed By: #### U MAC, UMIC #### Testing performed at [address] [address] EST. GFR,Non 51 ml/min/1.73sq.m [facility] Comment on above: Performed By: #### U MAC, UMIC #### Testing performed at [address] [address] GFR Information Average GFR for 70+ years old = 75. Normal [facility] Comment on above: Result Comment: Ecosystem Ecology Professor juan diego Kidney disease, GFR = <60. Kidney failure, GFR = <15. The GFR estimate is not adjusted for extreme body surface area or acute process, nor has it been validated for women or ethnic groups other than and . Performed By: #### U MAC, UMIC #### Testing performed at [address] [address] Glucose [Mass/Vol] 114 mg/dL High 70-100 [facility] Comment on above: Result Comment: NORMAL <100 mg/dL PREDIABETES 101-126 mg/dL DIABETES 126 mg/dL or higher Performed By: #### U MAC, UMIC #### Testing performed at [address] [address] Potassium [Moles/Vol] 3.1 mmol/L Low 3.5-5.1 [facility] Comment on above: Performed By: #### U MAC, UMIC #### Testing performed at [address] [address] Protein [Mass/Vol] 7.6 g/dL Normal 6.3-8.2 [facility] Comment on above: Performed By: #### U MAC, UMIC #### Testing performed at [address] [address] Sodium [Moles/Vol] 139 mmol/L Normal 137-145 [facility] Comment on above: Performed By: #### U MAC, UMIC #### Testing performed at [address] [address] Urea nitrogen [Mass/Vol] 31 mg/dL High 7-20 [facility] Comment on above: Performed By: #### U MAC, UMIC #### Testing performed at [address] [address] ESRon 06-25-2023 ESR (Bld) [Velocity] 7 mm/h Normal 0-30 [facility] Comment on above: Performed By: #### U MAC, UMIC #### Testing performed at [address] [address] HEMOGLOBIN A1Con 06-25-2023 Glucose [Mass/Vol] 131 mg/dL Normal [facility] Comment on above: Performed By: #### H A1CT #### Testing performed at [address] [address] HbA1c (Bld) [Mass fraction] 6.2 % High 0-6 [facility] Comment on above: Result Comment: NORMAL <5.7% PREDIABETES 5.7-6.4% DIABETES 6.5% OR HIGHER Performed By: #### H A1CT #### Testing performed at [address] [address] HS CRPon 06-25-2023 HS CRP 3.8 mg/L High 1.0-3.0 [facility] Comment on above: Performed By: #### U MAC, UMIC #### Testing performed at [address] [address] MRSA SCREENon 06-25-2023 MRSA DNA CHRISTOPHER+probe Ql (Unsp spec) Negative Normal NEGATIVE [facility] Comment on above: Performed By: #### U MAC, UMIC #### Testing performed at [facility] [address] [place] [address] STAPH AUREUS SCREEN Negative Normal NEGATIVE [facility] Comment on above: Result Comment: TEST ING PERFORMED BY PCR Performed By: #### U MAC, UMIC #### Testing performed at [address] [address] PROTIMEon 06-25-2023 INR Coag (PPP) [Relative time] 1.23 {INR} High 0.85-1.10 [facility] Comment on above: Result Comment: 2.0-3.0 THERAPEUTIC RANGE 2.5-3.5 MECHANICAL VALVE RANGE Performed By: #### U MAC, UMIC #### Testing performed at [address] [address] PT Coag (PPP) [Time] 15.6 s High 11.8-14.4 [facility] Comment on above: Performed By: #### U MAC, UMIC #### Testing performed at [address] [address] TYPE AND SCREEN CROSSMATCH C ONVERTIBLEon 06-25-2023 TYPE AND SCREEN CROSSMATCH CONVERTIBLE UNITS ORDERED 2 WORKUP EXPIRES 07/10/2023,2359 ABO/RH(D) A POSITIVE ANTIBODY SCREEN NEGATIVE ARM BAND NUMBER [id number] Normal [facility] Comment on above: Performed By: #### U MAC, UMIC #### Testing performed at [address] [place] [address] URINE MACROSCOPICon 06-25-19 24 Bilirubin Ql (U) Negative Normal NEGATIVE [facility] Comment on above: Performed By: #### U MAC, UMIC #### Testing performed at [address] [place] [address] Clarity (U) HAZY Abnormal CLEAR [facility] Comment on above: Performed By: #### U MAC, UMIC #### Testing performed at [address] [place] [address] Color (U) YELLOW Normal YELLOW [facility] Comment on above: Performed By: #### U MAC, UMIC #### Testing performed at [address] [place] [address] Glucose Ql (U) Negative Normal NEGATIVE [facility] Comment on above: Performed By: #### U MAC, UMIC #### Testing performed at [address] [place] [address] pH (U) 5.5 [pH] Normal 5.0-7.0 [facility] Comment on above: Performed By: #### U MAC, UMIC #### Testing performed at [address] [place] [address] URINE HEMOGLOBIN SMALL Abnormal NEGATIVE [facility] Comment on above: Performed By: #### U MAC, UMIC #### Testing performed at [address] [place] [address] URINE KETONE Negative Normal NEGATIVE [facility] Comment on above: Performed By: #### U MAC, UMIC #### Testing performed at [address] [address] URINE LEUKOTEST SMALL Abnormal NEGATIVE [facility] Comment on above: Performed By: #### U MAC, UMIC #### Testing performed at [address] [address] URINE NITRATES Negative Normal NEGATIVE [facility] Comment on above: Performed By: #### U MAC, UMIC #### Testing performed at [address] [address] URINE SPEC GRAVITY 1.015 Normal 1.010-1.025 [facility] Comment on above: Performed By: #### U MAC, UMIC #### Testing performed at [address] [address] URINE TOTAL PROTEIN Negative Normal NEGATIVE [facility] Comment on above: Performed By: #### U MAC, UMIC #### Testing performed at [address] [address] Urobilinogen Qn (U) 0.2 {Zenia'U}/dL Normal 0.2-1.0 [facility] Comment on above: Performed By: #### U MAC, UMIC #### Testing performed at [address] [address] URINE MICROSCOPICon 06-25-19 24 Bacteria LM.HPF (Urine sed) [#/Area] Negative Normal NEGATIVE [facility] Comment on above: Performed By: #### U MAC, UMIC #### Testing performed at [address] [address] CASTS NONE Normal NONE [facility] Comment on above: Performed By: #### U MAC, UMIC #### Testing performed at [address] [address] CRYSTAL NONE Normal NONE [facility] Comment on above: Performed By: #### U MAC, UMIC #### Testing performed at [address] [address] Epithelial cells LM Ql (Urine sed) 10 TO 20 Normal [facility] Comment on above: Performed By: #### U MAC, UMIC #### Testing performed at [address] [address] Mucus Ql (Urine sed) Negative Normal NEGATIVE [facility] Comment on above: Performed By: #### U MAC, UMIC #### Testing performed at [address] [address] URINE COMMENT POSSIBLY CONTAMINATED SPECIMEN, CULTURE MUST BE ORDERED SEPARATELY IF DEEMED NECESSARY. Normal [facility] Comment on above: Performed By: #### U MAC, UMIC #### Testing performed at [address] [address] URINE RBC'S 1 TO 5 Normal NEGATIVE [facility] Comment on above: Performed By: #### U MAC, UMIC #### Testing performed at [address] [address] URINE WBC'S 1 TO 5 Normal NEGATIVE [facility] Comment on above: Performed By: #### U MAC, UMIC #### Testing performed at [address] [address] Pre-Certification Formon Pre-Certification Form [id number] #1.00TIFF Normal [facility] POCT EKGOrdered By: Samantha Gurrola on [...] tendons as discussed in detail above. 3. Zphfx-wl-oxkinkdc amount of fluid along the lateral aspect of the greater trochanter in the distribution of the greater trochanteric bursa may relate to postoperative seroma or bursitis. 4. No acute bony finding. Normal marrow signal. NOTE: Other chronic/incidental findings are discussed above. Normal [facility] Screenson 05-28-2023 Screens [id number] #1.00TIFF Normal [facility] Patient Educationon 05-27-19 Patient Education Obstetrics [...] provider. Document Revised: 08/29/2021 Document Reviewed: 08/29/2021 [employer] Patient Education ? 2022 [email or web address] [facility] Urology Office/Clinic Noteon 05-27-2023 Urology Office/Clinic [...] a hematuria workup including a scope, at [facility]. Occasional visible blood w/UTI. UA today [...] discussed. Pt was referred for PFPT at [facility] at prior OV, has not started this, [...] the office notified. -Kegels. 4. Anticoagulated (Z79.01: [facility] (current) use of anticoagulants) Pt does take Eliquis therapy. Elevated risk of periop complications 5. History of (more content not included)... Normal [facility] Comment on above: Result Comment: Elec tronically Signed By: Alfreda Miller MD\.br\Date and Time Signed: 05/27/23 19:56 EST\.br\Electronically Co-Signed By: Karlee Ramos\.br\Date and Time Co-Signed: 05/27/23 10:23 EST COBALT AND CHROMIUMon 2023 CHROMIUM,WB 1.1 [facility] Comment on above: Result Comment: Refe rence range: <3.0 Unit: ng/mL PERFORMED BY Holaira COBALT,WB <1.0 [facility] Comment on above: Result Comment: Refe rence range: <3.0 Unit: ng/mL (NOTE) Chromium and cobalt analysis performed by inductively coupled plasma/mass spectrometry (ICP/MS). Reference range is for patients with wcznj-fa-pxvjk (MoM) orthopedic implants. The [place] Association of Hip and Knee Surgeons, the [place] Academy of Orthopaedic Surgeons, and The Hip Society, have published a consensus statement, Risk Stratification Algorithm for Management of Patients with Nsysi-yp-Emfpb Hip Arthroplasty. The algorithm is intended as an aid to orthopedic surgeons in the assessment and management of patients with Boojb-mw-Jhbxu bearings. The systematic risk stratification includes recommendations [...] developed and its performance characteristics determined by [employer]. It has not been cleared or approved by the Food and Drug Administration. COBALT AND CHROMIUM,WBon Chromium (Bld) [Mass/Vol] 1.1 Personal Comment on above: Reference range: <3. 0 Unit: ng/mL PERFORMED BY Holaira Dupont (Bld) [Mass/Vol] <1.0 [facility] Comment on above: Reference range: <3. 0 Unit: ng/mL (NOTE) Chromium and cobalt analysis performed by inductively coupled plasma/mass spectrometry (ICP/MS). Reference range is for patients with rnafu-kz-fmqqf (MoM) orthopedic implants. The [place] Association of Hip and Knee Surgeons, the [place] Academy of Orthopaedic Surgeons, and The Hip Society, have published a consensus statement, Risk Stratification Algorithm for Management of Patients with Vualb-hj-Gdvsa Hip Arthroplasty. The algorithm is intended as an aid to orthopedic surgeons in the assessment and management of patients with Fdhen-ut-Awbjd bearings. The systematic risk stratification includes recommendations [...] developed and its performance characteristics determined by [employer]. It has not been cleared or approved by the Food and Drug Administration. [facility] C REACTIVE PROTEINon 024 CRP [Mass/Vol] 48.4 mg/L High 0 - 10 MG/L [facility] Interpretation and review of laboratory results Abnormal [facility] CRP [Mass/Vol] 48.4 mg/L High 0-10 [facility] Comment on above: Performed By: #### C REACT, ESR #### Testing performed at [address] [address] ESRon 05-14-2023 ESR (Bld) [Velocity] 31 mm/h High 0-30 [facility] Comment on above: Performed By: #### C REACT, ESR #### Testing performed at [address] [address] SEDIMENTATION RATE, AUTOMATE Don 05-14-2023 ESR (Bld) [Velocity] 31 mm/h High [facility] Interpretation and review of laboratory results Abnormal [facility] Ambulatory Visit Summaryon 1 Ambulatory Visit Summary BETTIE BURNS :1945 Visit Date:02/11/2023 Ambulatory Visit Instructions Your Diagnosis Frequent UTI Microscopic hematuria Mixed incontinence Anticoagulated History of breast cancer Former smoker Tests Performed Urnls Dip Stick Auto w/o Microscopy POC [address] Your Care Team Attending Physician - Paul [...] VILLEGAS, Alfreda Palacios Where: [facility] Lab Reportson 02-11-2023 Lab Reports [id number] 1#1.00TIFF [facility] Patient Educationon 02-12-20 Patient Education Obstetrics [...] provider. Document Revised: 08/29/2021 Document Reviewed: 08/29/2021 [employer] Patient Education ? 2022 [email or web address]. Normal [facility] Physician Referralon 023 Physician Referral [id number] #1.00TIFF Normal [facility] Urinalysis - DIPSTICKon 10-03 Appearance (U) cloudy [employer] Other Bilirubin Ql (U) Freta[employer] ast [employer] Other Color (U) yellow [employer] Other Glucose Ql (U) Negative [employer] Other Hemoglobin Ql (U) [employer] system master [employer] Other Ketones Ql (U) Negative [employer] Other Leukocyte esterase Test strip Ql (U) moderate [employer] Other Nitrite Ql (U) Positive [employer] Other pH (U) 5 [pH] [employer] Other Protein Ql (U) Negative [employer] Other Specific gravity (U) [Rel density] 1.010 [employer] Other Urobilinogen (U) [Mass/Vol] off chart [employer] Other Urinalysis - DIPSTICK [employer] Other Urine Cultureon 10-27-2022 Bacteria identified Cx Nom (U) ORGANISM: Escherichia coli (O:ESCCOL) [place] Count >100,000 Aerobic AUBREY Charge (NMIC56) ----- [...] RESISTANT TO ALL B-LACTAM DRUGS. PERFORMED BY: [address] [place] [address] PATHOLOGIST CIRCULAR SAWYER STONE JOSE GUADALUPE FERGUSON M.D. [facility] Comment on above: Performed By: #### C UU #### [facility] [address] [place] [address] Urinalysis - DIPSTICKon 06-05 Appearance (U) cloudy [employer] Other Bilirubin Ql (U) Negative [employer] Other Color (U) pale yellow [employer] Other Glucose Ql (U) Negative [employer] Other Hemoglobin Ql (U) non hem-trace [employer] Other Ketones Ql (U) trace [employer] Other Leukocyte esterase Test strip Ql (U) moderate [employer] Other Nitrite Ql (U) Negative [employer] Other pH (U) 5 [pH] [employer] Other Protein Ql (U) trace [employer] Other Specific gravity (U) [Rel density] 1.005 [employer] Other Urobilinogen (U) [Mass/Vol] normal [employer] Other Urinalysis - DIPSTICK [employer] Other CULTURE URINEon 06-11-2022 CULTURE URINE Isolate [...] Trimethoprim/Sulfame thoxazole <=20 S F Normal [facility] Comment on above: Performed By: #### U RCX #### [facility] [address] [place] [address] Dr. Florencio Narayanan CARDIAC AMBER ADMITon 023 CK [Catalytic activity/Vol] 44 U/L Normal 26-192 [facility] Comment on above: Performed By: #### C LILIAN LOZANO CMADM #### [facility] [address] [place] [address] Dr. Florencio Narayanan CK.MB [Mass/Vol] ng/mL Normal <=3.60 [facility] Comment on above: Performed By: #### C LILIAN LOZANO CMADM #### [facility] [address] [place] [address] Dr. Florencio Narayanan HSTROP 14.6 pg/mL Normal 4.0-51.3 [facility] Comment on above: Result Comment: CUT- OFF POINTS HAVE BEEN ESTABLISHED BASED ON THE FOURTH UNIVERSAL DEFINITIONS OF MYOCARDIAL INFARCTION. THE UPPER REFERENCE LIMIT (URL) OF TROPONIN, DEFINED THE 99TH PERCENTILE OF cTnI DISTRIBUTION IN A REFERENCE POPULATION, HAS BEEN CONFIRMED THE DECISION THRESHOLD FOR ME DIAGNOSIS. Performed By: #### C LILIAN LOZANO CMADM #### [facility] [address] [place] [address] Dr. Florencio Narayanan UMER 109 ng/mL Critically high 9-82 [facility] Comment on above: Performed By: #### C LILIAN LOZANO CMADM #### [facility] [address] [place] [address] Dr. Florencio Narayanan CBC AUTO DIFFon 06-09-2022 BASO # 0.1 103/ul Normal 0.0-0.1 [facility] Comment on above: Performed By: #### C BC #### [facility] [address] [place] [address] Dr. Florencio Narayanan Basophils/100 WBC (Bld) 0.4 % Normal 0.2-2.0 [facility] Comment on above: Performed By: #### C BC #### [facility] [address] [address] [address] Florencio Narayanan EO # 0.0 103/ul Normal 0.0-0.7 [facility] Comment on above: Performed By: #### C BC #### [facility] [address] [place] [address] Dr. Florencio Narayanan Eosinophils/100 WBC (Bld) 0.2 % Critically low 0.9-7.0 [facility] Comment on above: Performed By: #### C BC #### [facility] [address] [place] [address] Dr. Florencio Nraayanan Erythrocyte distribution width (RBC) [Ratio] 12.3 % Normal 11.0-15.0 [facility] Comment on above: Performed By: #### C BC #### [facility] [address] [place] [address] Dr. Florencio Narayanan Hematocrit (Bld) [Volume fraction] 38.4 % Normal 36.0-48.0 [facility] Comment on above: Performed By: #### C BC #### [facility] [address] [place] [address] Dr. Florencio Narayanan Hemoglobin (Bld) [Mass/Vol] 12.7 g/dL Normal 12.0-16.0 [facility] Comment on above: Performed By: #### C BC #### [facility] [address] [place] [address] Dr. Florencio Narayanan IG # 0.06 10e3/ul Critically high 0.00-0.03 [facility] Comment on above: Performed By: #### C BC #### [facility] [address] [place] [address] Dr. Florencio Narayanan IG % 0.5 % Normal 0.0-0.5 [facility] Comment on above: Performed By: #### C BC #### [facility] [address] [place] [address] Dr. Florencio Narayanan LYMPH # 1.0 103/ul Critically low 1.2-3.8 [facility] Comment on above: Performed By: #### C BC #### [facility] [address] [place] [address] Dr. Florencio Narayanan Lymphocytes/100 WBC (Bld) 8.4 % Critically low 20.5-60.0 [facility] Comment on above: Performed By: #### C BC #### [facility] [address] [place] [address] Dr. Florencio Narayanan MANUAL DIFF REQ NO Normal [facility] Comment on above: Performed By: #### C BC #### [facility] [address] [place] [address] Dr. Florencio Narayanan MCH (RBC) [Entitic mass] 32.4 pg Normal 26.7-34.0 [facility] Comment on above: Performed By: #### C BC #### [facility] [address] [place] [address] Dr. Florencio Narayanan MCHC (RBC) [Mass/Vol] 33.1 g/dL Normal 29.9-35.2 [facility] Comment on above: Performed By: #### C BC #### [facility] [address] [place] [address] Dr. Florencio Narayanan MCV (RBC) [Entitic vol] 98.0 fL Normal 81.0-99.0 [facility] Comment on above: Performed By: #### C BC #### [facility] [address] [place] [address] Dr. Florencio Narayanan MONO # 1.6 103/ul Critically high 0.3-0.8 [facility] Comment on above: Performed By: #### C BC #### [facility] [address] [place] [address] Dr. Florencio Narayanan Monocytes/100 WBC (Bld) 13.1 % Critically high 1.7-12.0 [facility] Comment on above: Performed By: #### C BC #### [facility] [address] [place] [address] Dr. Florencio Narayanan NEUT # 9.5 103/ul Critically high 1.4-6.5 [facility] Comment on above: Performed By: #### C BC #### [facility] [address] [place] [address] Dr. Florencio Narayanan Neutrophils/100 WBC (Bld) 77.4 % Critically high 43.0-75.0 [facility] Comment on above: Performed By: #### C BC #### [facility] [address] [address] [address] Florencio Narayanan Platelet mean volume (Bld) [Entitic vol] 9.4 fL Critically low 9.5-13.5 [facility] Comment on above: Performed By: #### C BC #### [facility] [address] [address] [address] Florencio Narayanan PLT 140 103/ul Critically low 150-450 [facility] Comment on above: Performed By: #### C BC #### [facility] [address] [address] [address] Florencio Narayanan RBC 3.92 106/ul Critically low 4.20-5.40 [facility] Comment on above: Performed By: #### C BC #### [facility] [address] [address] [address] Florencio Narayanan WBC 12.2 103/ul Critically high 4.0-11.0 [facility] Comment on above: Performed By: #### C BC #### [facility] [address] [address] [address] STROKE HEAD WOon [...] LUANA VILLAFANA Date: 2022-06-09 12:24 Normal [facility] Covid-19 PCR (CVDTB)on SARS-CoV-2 (COVID-19) RNA CHRISTOPHER+probe Ql (Unsp spec) Not detected Normal NOT DETECTED [facility] Comment on above: Result Comment: When [...] for this test is supported by the Aoc Director Combat Operations Officer of Health and Human Service's declaration that [...] used). Performed By: #### C VDTB #### [facility] [address] [place] [address] Dr. Florencio Narayanan ER URINE PROFILEon 3 Bilirubin Ql (U) Negative Normal NEGATIVE [facility] Comment on above: Performed By: #### ADIEL LE #### [facility] [address] [place] [address] Dr. Florencio Narayanan Clarity (U) CLEAR Normal CLEAR [facility] Comment on above: Performed By: #### ADIEL LE #### [facility] [address] [place] [address] Dr. Florencio Narayanan Color (U) LT. YELLOW Normal YELLOW [facility] Comment on above: Performed By: #### LIYAH LERO #### [facility] [address] [place] [address] Dr. Florencio CONLEY A micrscopic examination will be performed if indicated. Normal [facility] Comment on above: Performed By: #### ADIEL EL #### [facility] [address] [place] [address] Dr. Florencio Narayanan Glucose Ql (U) Negative Normal NEGATIVE [facility] Comment on above: Performed By: #### Malini PIZANO UMICRO #### [facility] [address] [address] [address] Florencio Narayanan Hemoglobin Ql (U) LARGE Abnormal NEGATIVE [facility] Comment on above: Performed By: #### Malini PIZANO, UMICRO #### [facility] [address] [address] [address] Florencio Narayanan Ketones Ql (U) TRACE Abnormal NEGATIVE [facility] Comment on above: Performed By: #### Malini PIZANO UMICRO #### [facility] [address] [address] [place] [address] Dr. Florencio Narayanan LEUKOCYTES LARGE Abnormal NEGATIVE [facility] Comment on above: Performed By: #### Malini PIZANO UMICRO #### [facility] [address] [place] [address] Dr. Florencio Narayanan Nitrite Ql (U) Positive Abnormal NEGATIVE [facility] Comment on above: Performed By: #### Malini PIZANO UMICRO #### [facility] [address] [place] [address] Dr. Florencio Narayanan pH (U) 5.5 [pH] Normal 5-9 [facility] Comment on above: Performed By: #### Malini PIZANO UMICRO #### [facility] [address] [address] [address] Florencio Narayanan SPEC GRAVITY 1.010 Normal 1.005-<=1.025 [facility] Comment on above: Performed By: #### Malini PIZANO UMICRO #### [facility] [address] [place] [address] Dr. Florencio Narayanan UA PROTEIN TRACE Normal NEGATIVE/ TRACE [facility] Comment on above: Performed By: #### Malini PIZANO UMICRO #### [facility] [address] [address] [address] Florencio Narayanan UR MICRO IND INDICATED Normal [facility] Comment on above: Performed By: #### Malini PIZANO UMICRO #### [facility] [address] [place] [address] Dr. Florencio Narayanan Urobilinogen Qn (U) 0.2 {Zenia'U}/dL Normal 0.2 - 1. 0 [facility] Comment on above: Performed By: #### E ADIEL PIZANO #### [facility] [address] [place] [address] Dr. Florencio Narayanan LIPASEon 06-09-2022 Lipase [Catalytic activity/Vol] 68.0 U/L Critically low 73.0-393.0 [facility] Comment on above: Performed By: #### C MP, LIPA, CMADM #### [facility] [address] [place] [address] Dr. Florencio Narayanan PROF 14(COMP METB)on 023 Albumin [Mass/Vol] 2.5 g/dL Critically low 3.4-5.0 [facility] Comment on above: Performed By: #### C MP, LIPA, CMADM #### [facility] [address] [place] [address] Dr. Florencio Narayanan Albumin/Globulin [Mass ratio] 0.6 {ratio} Normal [facility] Comment on above: Performed By: #### C MP, LIPA, CMADM #### [facility] [address] [place] [address] Dr. Florencio Narayanan ALP [Catalytic activity/Vol] 150 U/L Critically high 46-116 [facility] Comment on above: Performed By: #### C MP, LIPA, CMADM #### [facility] [address] [place] [address] Dr. Florencio Narayanan ALT [Catalytic activity/Vol] 27 U/L Normal 14-59 [facility] Comment on above: Performed By: #### C MP, LIPA, CMADM #### [facility] [address] [place] [address] Dr. Florencio Narayanan Anion gap [Moles/Vol] 12.8 mmol/L Normal [facility] Comment on above: Performed By: #### C MP, LIPA, CMADM #### [facility] [address] [address] [address] Florencio Narayanan AST [Catalytic activity/Vol] 31 U/L Normal 15-37 [facility] Comment on above: Performed By: #### C MP, LIPA, CMADM #### [facility] [address] [address] [address] Florencio Narayanan Bilirubin [Mass/Vol] 1.1 mg/dL Critically high 0.2-1.0 [facility] Comment on above: Performed By: #### C MP, LIPA, CMADM #### [facility] [address] [address] [address] Florencio Narayanan Calcium [Mass/Vol] 9.1 mg/dL Normal 8.5-10.1 [facility] Comment on above: Performed By: #### C MP, LIPA, CMADM #### [facility] [address] [address] [address] Florencio Narayanan Chloride [Moles/Vol] 95 mmol/L Critically low 98-107 [facility] Comment on above: Performed By: #### C MP, LIPA, CMADM #### [facility] [address] [address] [address] Florencio Narayanan CO2 [Moles/Vol] 29.4 mmol/L Normal 21.0-32.0 [facility] Comment on above: Performed By: #### C MP, LIPA, CMADM #### [facility] [address] [address] [address] Florencio Narayanan Creatinine [Mass/Vol] 1.34 mg/dL Critically high 0.55-1.02 [facility] Comment on above: Performed By: #### C MP, LIPA, CMADM #### [facility] [address] [address] [address] Florencio Narayanan EGFR-AF TONGAN 47 mL/min/1.73m2 Critically low >=60 [facility] Comment on above: Performed By: #### C MP, LIPA, CMADM #### [facility] [address] [address] [address] Florencio Narayanan EGFR-NON AF TONGAN 39 mL/min/1.73m2 Critically low >=60 [facility] Comment on above: Performed By: #### C MP LIPA, CMADM #### [facility] [address] [address] [address] Florencio Narayanan Globulin (S) [Mass/Vol] 4.3 g/dL Normal [facility] Comment on above: Performed By: #### C MP, LIPA, CMADM #### [facility] [address] [address] [address] Florencio Narayanan Glucose [Mass/Vol] 118 mg/dL Critically high 74-106 [facility] Comment on above: Performed By: #### C BLAKE LIPA, CMADM #### [facility] [address] [place] [address] Dr. Florencio Narayanan Potassium [Moles/Vol] 3.2 mmol/L Critically low 3.5-5.1 [facility] Comment on above: Performed By: #### C MP, LIPA, CMADM #### [facility] [address] [place] [address] Dr. Florencio Narayanan Protein [Mass/Vol] 6.8 g/dL Normal 6.4-8.2 [facility] Comment on above: Performed By: #### C MP LIPA, CMADM #### [facility] [address] [place] [address] Dr. Florencio Narayanan Sodium [Moles/Vol] 134 mmol/L Critically low 136-145 [facility] Comment on above: Performed By: #### C MP, LIPA, CMADM #### [facility] [address] [address] [address] Florencio Narayanan Urea nitrogen [Mass/Vol] 29.0 mg/dL Critically high 7.0-18.0 [facility] Comment on above: Performed By: #### C MP, LIPA, CMADM #### [facility] [address] [place] [address] Dr. Florencio Narayanan Urea nitrogen/Creatinine [Mass ratio] 21.6 mg/mg Normal [facility] Comment on above: Performed By: #### C MP, LIPA, CMADM #### [facility] [address] [place] [address] Dr. Florencio Narayanan URINE MICROSCOPIC ONLYon BACTERIA SMALL Abnormal NONE SEEN [facility] Comment on above: Performed By: #### Malini PIZANO UMICRO #### [facility] [address] [place] [address] Dr. Florencio Narayanan Bacteria identified Cx Nom (U) INDICATED Normal [facility] Comment on above: Performed By: #### Malini PIZANO UMICRO #### [facility] [address] [place] [address] Dr. Florencio Narayanan CAST NONE SEEN Normal NONE SEEN [facility] Comment on above: Performed By: #### Malini PIZANO UMICRO #### [facility] [address] [place] [address] Dr. Florencio Narayanan Crystals LM Nom (Urine sed) NONE SEEN Normal NONE SEEN [facility] Comment on above: Performed By: #### Malini PIZANO UMICRO #### [facility] [address] [place] [address] Dr. Florencio Narayanan Epithelial cells LM Ql (Urine sed) FEW Abnormal NONE SEEN /RARE [facility] Comment on above: Performed By: #### Malini PIZANO UMICRO #### [facility] [address] [place] [address] Dr. Florencio Narayanan MUCOUS NONE SEEN Normal NONE SEEN [facility] Comment on above: Performed By: #### Malini PIZANO UMICRO #### [facility] [address] [place] [address] Dr. Florencio Narayanan RBC 2-5 Abnormal 0-2 [facility] Comment on above: Performed By: #### Malini PIZANO UMICRO #### [facility] [address] [place] [address] Dr. Florencio Narayanan WBC 10-20 Abnormal NONE SEEN [facility] Comment on above: Performed By: #### Malini PIZANO UMICRO #### [facility] [address] [place] [address] Dr. Florencio Narayanan XR CHEST 2 Von [...] JOAQUÍN ATKINS Date: 2022-06-09 12:24 Normal [facility] CULTURE URINEon 04-16-2022 CULTURE URINE Isolate [...] Trimethoprim/Sulfame thoxazole >=320 R F Normal [facility] Comment on above: Performed By: #### C #### [facility] [address] [place] [address] Dr. Florencio Narayanan MRI Hip w/o Righton 09-12-19 22 MRI [...] by Ramon Ambrocio on 09/11/2021 1545 Normal [facility] Technical Support Engineer Consult Reporton 03-14-2020 Consult Report [facility] CONSULTATION BETTIE BURNS [address]ET [id number] OBSV ANABEL WATKINS MD [id number] REFERRING PHYSICIAN: CONSULTING PHYSICIAN: Renetta Almanzar MD DATE OF CONSULTATION: 03/11/2020 REASON: A near syncopal event in a 74-year-old female, with a history of atrial fibrillation, previous cardiac ablation, who was the time of evaluation noted to have a positive test for COVID. HISTORY OF PRESENT ILLNESS: Mrs. Burns is a very pleasant, alert and oriented -opul-rdr female who was brought into the emergency [...] quarantine. Many thanks. RENETTA ALMANZAR MD BD/MedQ /[id number] Normal [facility] BASICMETAon 03-11-2020 GFR AA >60 Normal [facility] Comment on above: Result Comment: [...] for drug dosing. Performed By: #### 1 69827, 798305, 093811 ####[facility] [id number] [place] [address] Medical Director: Fahad Cast MD GFR/1.73 sq M predicted among non-blacks MDRD (S/P/Bld) [Vol rate/Area] 56 mL/min/1.73m? Normal [facility] Comment on above: Result Comment: [...] for drug dosing. Performed By: #### 1 01369, 532357, 319004 ####[facility] [address] [place] [address] Medical Director: Fahad Cast MD Osmolality [Osmolality] 291 mOsm/kg Normal 275-295 [facility] Comment on above: Performed By: #### 1 89577, 765830, 001969 ####[facility] [address] [place] [address] Medical Director: Fahad Cast MD Urea nitrogen/Creatinine [Mass ratio] 24.5 mg/mg Normal [facility] Comment on above: Performed By: #### 1 94696, 638507, 063238 ####[facility] [address] [place] [address] Medical Director: Fahad Cast MD Calcium [Mass/Vol] 9.3 mg/dL Normal 8.5-10.5 [facility] Comment on above: Performed By: #### 1 61295, 542697, 296421 ####[facility] [address] [place] [address] Medical Director: Fahad Cast MD Chloride [Moles/Vol] 108 mmol/L Normal 100-109 [facility] Comment on above: Performed By: #### 1 37177, 963315, 003903 ####[facility] [address] [place] [address] Medical Director: Fahad Cast MD CO2, venous 28.9 mmol/L Normal 21.0-32.0 [facility] Comment on above: Performed By: #### 1 62458, 231559, 024812 ####[facility] [address] [place] [address] Medical Director: Fahad Cast MD Creatinine [Mass/Vol] 1.0 mg/dL Normal 0.6-1.0 [facility] Comment on above: Performed By: #### 1 11730, 178559, 324644 ####[facility] [address] [place] [address] Medical Director: Fahad Cast MD Glucose [Mass/Vol] 98 mg/dL Normal 72-100 [facility] Comment on above: Result Comment: Sharon puncture should occur prior to sulfasalazine administration due to the potential for falsely depressed results. Venipuncture should occur prior to sulfapyridine administration due to the potential falsely elevated results. Baseline assay values before administration of sulfasalazine and sulfapyridine therapy would not be affected. Performed By: #### 1 41626, 247995, 669883 ####[facility] [address] [place] [address] Medical Director: Fahad Cast MD Potassium [Moles/Vol] 4.2 mmol/L Normal 3.5-5.1 [facility] Comment on above: Performed By: #### 1 45517, 304899, 600823 ####[facility] [address] [place] [address] Medical Director: Fahad Cast MD Sodium [Moles/Vol] 144 mmol/L Normal 135-145 [facility] Comment on above: Performed By: #### 1 23676, 371401, 026798 ####[facility] [address] [place] [address] Medical Director: Fahad Cast MD Urea nitrogen [Mass/Vol] 24 mg/dL High 10-20 [facility] Comment on above: Performed By: #### 1 63325, 245572, 992481 ####[facility] [address] [place] [address] Medical Director: Fahad Cast MD CBCNDon 03-11-2020 Erythrocyte distribution width (RBC) [Ratio] 14.4 % Normal 11.5-14.5 [facility] Comment on above: Performed By: #### 1 49101, 222058, 294893 #### [facility] Services [address] [place] [address] Clarifier: Fahad Cast MD Hematocrit (Bld) [Volume fraction] 33.9 % Low 36.0-46.0 [facility] Comment on above: Performed By: #### 1 23955, 939032, 065943 #### [facility] Services [address] [place] [address] Clarifier: Fahad Cast MD Hemoglobin (Bld) [Mass/Vol] 11.2 g/dL Low 12.0-16.0 [facility] Comment on above: Performed By: #### 1 02276, 127470, 315583 #### [facility] Services [address] [place] [address] Clarifier: Fahad Cast MD MCH (RBC) [Entitic mass] 29.5 pg Normal 27.0-34.0 [facility] Comment on above: Performed By: #### 1 81437, 097816, 829709 #### [facility] Services [address] [place] [address] Clarifier: Fahad Cast MD MCHC (RBC) [Mass/Vol] 33.0 g/dL Normal 32.0-37.0 [facility] Comment on above: Performed By: #### 1 92013, 690890, 884882 #### [facility] [address] [place] [address] Clarifier: Fahad Cast MD MCV (RBC) [Entitic vol] 89.5 fL Normal 80.0-100.0 [facility] Comment on above: Performed By: #### 1 14298, 139506, 632342 #### [facility] [address] [place] [address] Clarifier: Fahad Cast MD Platelet mean volume (Bld) [Entitic vol] 6.8 fL Low 7.4-10.4 [facility] Comment on above: Performed By: #### 1 94696, 500920, 205214 #### [facility] [address] [place] [address] Clarifier: Fahad Cast MD Platelets (Bld) [#/Vol] 232 x1000 Normal 150-450 [facility] Comment on above: Performed By: #### 1 93440, 427437, 145029 #### [facility] [address] [place] [address] Clarifier: Fahad Cast MD RBC (Bld) [#/Vol] 3.79 x10 Low 4.20-5.40 [facility] Comment on above: Result Comment: Note : RBC morphology is normal unless otherwise stated. Evaluation performed only if differential is requested. Performed By: #### 1 55259, 826211, 185170 #### [facility] [address] [place] [address] Clarifier: Fahad Cast MD WBC (Bld) [#/Vol] 5.8 10*3/uL Normal [facility] Comment on above: Performed By: #### 1 00110, 313723, 891974 #### [facility] [address] [place] [address] Clarifier: Fahad Cast MD WBC (Bld) [#/Vol] 5.8 x10 Normal 4.5-11.0 [facility] Comment on above: Performed By: #### 1 60372, 479215, 539918 #### [facility] Services [address] [place], [place] [id number] Clarifier: Fahad Cast MD D Dimer HSon 03-11-2020 D Dimer HS 821 ng/mL FEU High <=499 [facility] Comment on above: Result Comment: Excl usion of PE and DVT The D Dimer HS assay is reported in ng/ml Fibrinogen Equivalent Units (FEU). Per preparatory technician?s instructions for use, a value less than 500ng/ml (FEU) may help to exclude DVT and /or PE in outpatients when the assay is used with a clinical pretest probability assessment. D-Dimer used for DIC Screens Assay results should be used with other information, including the clinical context in forming a diagnosis. Performed By: #### C [id number] ####[facility] [address] [place] [address] Medical Director: Fahad Cast MD LDHon 03-11-2020 LDH 198 unit/L Normal 84-246 [facility] Comment on above: Performed By: #### 1 18308, 867173, 883351 #### [facility] [address] [place] [address] Clarifier: Fahad Cast MD Progress Note-Physicianon Progress Note-Physician [...] Continue home medications. 6) DVT ppx: On [employer] Normal [facility] Utilization Review Noteon Utilization Review Note ID Consult pending DISCHARGE WRITTEN AND PLANNED. Normal [facility] AUTO DIFFon 03-10-2020 Basophils (Bld) [#/Vol] 0.05 x1000 Normal 0.00-0.20 [facility] Comment on above: Performed By: #### 1 21413, 618224, 0704557 ####[facility] [address] [place] [address] Medical Director: Fahad Cast MD Basos % 0.6 % Normal [facility] Comment on above: Performed By: #### 1 73664, 549635, 2226125 ####[facility] [address] [place], [place] [phone]) [phone] Director: Fahad Cast MD Eos Count 0.15 x1000 Normal 0.00-0.50 [facility] Comment on above: Performed By: #### 1 60079, 563665, 9526839 ####[facility] [address] [place] [address] Medical Director: Fahad Cast MD Eosinophils/100 WBC (Bld) 1.8 % Normal [facility] Comment on above: Performed By: #### 1 79644, 958587, 6798305 ####[facility] [address] [place] [address] Medical Director: Fahad Cast MD Lymphocytes (Bld) [#/Vol] 1.05 x1000 Low 1.20-4.80 [facility] Comment on above: Performed By: #### 1 01581, 208570, 6470603 ####[facility] [address] [place] [address] Medical Director: Fahad Cast MD Lymphocytes/100 WBC (Bld) 12.7 % Normal [facility] Comment on above: Performed By: #### 1 06510, 596862, 3346669 ####[facility] [address] [place] [address] Medical Director: Fahad Cast MD M[place]go Count 0.70 x1000 Normal 0.10-1.00 [facility] Comment on above: Performed By: #### 1 56150, 204361, 7707125 ####[facility] [address] [place] [address] Medical Director: Fahad Cast MD Monocytes/100 WBC (Bld) 8.4 % Normal [facility] Comment on above: Performed By: #### 1 74083, 229836, 9742339 ####[facility] [address] [place] [address] Medical Director: Fahad Cast MD Neutrophils (Bld) [#/Vol] 6.32 x1000 Normal 1.40-8.80 [facility] Comment on above: Performed By: #### 1 19780, 711456, 8620593 ####[facility] [address] [place] [address] Medical Director: Fahad Cast MD Neutrophils/100 WBC (Bld) 76.4 % Normal [facility] Comment on above: Performed By: #### 1 02005, 793481, 7433794 ####[facility] [address] [place] [address] Medical Director: Fahad Cast MD COMPMETAon 03-10-2020 Albumin [Mass/Vol] 3.4 g/dL Normal 3.4-5.0 [facility] Comment on above: Performed By: #### 1 68111, 560918, 6945957 ####[facility] [address] [place] [address] Medical Director: Fahad Cast MD Albumin/Globulin [Mass ratio] 0.8 {ratio} Normal [facility] Comment on above: Performed By: #### 1 68599, 612205, 1426264 ####[facility] [address] [phone] Medical Director: Fahad Cast MD Alk Phos 71 unit/L Normal 45-117 [facility] Comment on above: Performed By: #### 1 , 260190, 8645977 ####[facility] [address] [place] [address] Medical Director: Fahad Cast MD Bilirubin [Mass/Vol] 0.37 mg/dL Normal 0.20-1.00 [facility] Comment on above: Result Comment: Use of this assay is not recommended for patients undergoing treatment with eltrombopag due to the potential for falsely elevated results. Performed By: #### 1 , 960583, [id number] ####[facility] [address] [address] Medical Director: Fahad Cast MD Calcium [Mass/Vol] 9.4 mg/dL Normal 8.5-10.5 [facility] Comment on above: Performed By: #### 1 40110, 403236, 6152454 ####[facility] [address] [place] [address] Medical Director: Fahad Cast MD Chloride [Moles/Vol] 108 mmol/L Normal 100-109 [facility] Comment on above: Performed By: #### 1 37377, 259907, 0878714 ####[facility] [address] [place], [place] [id number]) [phone] Director: Fahad Cast MD CO2, venous 28.2 mmol/L Normal 21.0-32.0 [facility] Comment on above: Performed By: #### 1 32324, 234204, 8887273 ####[facility] [address]ub[address] [place], [place] [id number]) [phone] Director: Fahad Cast MD Creatinine [Mass/Vol] 1.2 mg/dL High 0.6-1.0 [facility] Comment on above: Performed By: #### 1 74870, 957406, 8610760 ####[facility] [address] [place] [address] Medical Director: Fahad Cast MD GFR AA 53 Normal [facility] Comment on above: Result Comment: [...] for drug dosing. Performed By: #### 1 56557, 454287, [id number] ####[facility] [address]407[address] [place], [place] [id number]) [phone] Director: Fahad Cast MD GFR/1.73 sq M predicted among non-blacks MDRD (S/P/Bld) [Vol rate/Area] 44 mL/min/1.73m? Normal [facility] Comment on above: Result Comment: [...] for drug dosing. Performed By: #### 1 57265, 864421, [id number] ####[facility] [address]cf[address]c840[address] [place] [address] Medical Director: Fahad Cast MD Globulin (S) [Mass/Vol] 4.0 g/dL Normal [facility] Comment on above: Performed By: #### 1 73874, 954754, [id number] ####[facility] Zdvzvsti85226 [place] [address] Medical Director: Fahad Cast MD Glucose [Mass/Vol] 143 mg/dL High 72-100 [facility] Comment on above: Result Comment: Sharon puncture should occur prior to sulfasalazine administration due to the potential for falsely depressed results. Venipuncture should occur prior to sulfapyridine administration due to the potential falsely elevated results. Baseline assay values before administration of sulfasalazine and sulfapyridine therapy would not be affected. Performed By: #### 1 83026, 653463, [id number] ####[facility] Tjckhauv79025 [place], [place] [id number]) [phone] Director: Fahad Cast MD GOT 18 unit/L Normal 15-37 [facility] Comment on above: Result Comment: Sharon puncture should occur prior to sulfasalazine and/or sulfapyridine administration due to the potential for falsely depressed results. Baseline assay values before administration of sulfasalazine and sulfapyridine therapy would not be affected. Performed By: #### 1 82030, 208667, [id number] ####[facility] Zqteheni72650 [place], [place] [id number]) [phone] Director: Fahad Cast MD GPT 19 unit/L Normal 13-56 [facility] Comment on above: Result Comment: Sharon puncture should occur prior to sulfasalazine and/or sulfapyridine administration due to the potential for falsely depressed results. Baseline assay values before administration of sulfasalazine and sulfapyridine therapy would not be affected. Performed By: #### 1 04455, 462742, [id number] ####[facility] [address]cfvyi75165 [place] [address] Medical Director: Fahad Cast MD Osmolality [Osmolality] 293 mOsm/kg Normal 275-295 [facility] Comment on above: Performed By: #### 1 83443, 232854, [id number] ####[facility] Fdhwbfrp25716 [place] [address] Medical Director: Fahad Cast MD Potassium [Moles/Vol] 4.0 mmol/L Normal 3.5-5.1 [facility] Comment on above: Performed By: #### 1 41911, 705431, 1076206 ####[facility] [address]fqfg[address] [place] [address] Medical Director: Fahad Cast MD Protein [Mass/Vol] 7.4 g/dL Normal 6.0-8.5 [facility] Comment on above: Performed By: #### 1 81376, 493163, [id number] ####[facility] [address]jpnjlrg24228 [place] [address] Medical Director: Fahad Cast MD Sodium [Moles/Vol] 142 mmol/L Normal 135-145 [facility] Comment on above: Performed By: #### 1 67668, 205502, 0587698 ####[facility] Bjokplpy39138 [place] [address] Medical Director: Fahad Cast MD Urea nitrogen [Mass/Vol] 32 mg/dL High 10-20 [facility] Comment on above: Performed By: #### 1 36822, 453357, [id number] ####[facility] Pvoxvent41356 [place] [address] Medical Director: Fahad Cast MD Urea nitrogen/Creatinine [Mass ratio] 26.7 mg/mg Normal [facility] Comment on above: Performed By: #### 1 41108, 870573, [id number] ####[facility] [address]bal[address]jz09[address] [place] [address] Medical Director: Fahad Cast MD COVID-19 by PCR SWEDon 03-10 COVID-19 by PCR SWED Positive Abnormal [facility] Comment on above: Result Comment: BLU CHRISTIE 03/10/2020 18:23:22 EST BY SHF; RBR Performed By: #### C [id number] ####[facility] [address]jlar28463 [place] [address] Medical Director: Fahad Cast MD CRP QUANTon 03-10-2020 C-Reactive Protein, Quantitative 0.8 mg/dL High 0.0-0.3 [facility] Comment on above: Performed By: #### 1 66975, [id number], [id number] #### [facility] Services [address] [place] [address] Clarifier: Fahad Cast MD CT ABD PELVIS W [...] by: Oni Liu MD 03/10/2020 3:50 PM STUDY HALL SUPERVISOR Technologist: LIEN BLANCA Dictated By: ONI LIU MD Signed By: ONI LIU MD Signed Out: 03/10/20 16:50:49 Normal [facility] D Dimer HSon 03-10-2020 D Dimer HS 264 ng/mL FEU Normal <=499 [facility] Comment on above: Result Comment: Excl usion of PE and DVT The D Dimer HS assay is reported in ng/ml Fibrinogen Equivalent Units (FEU). Per preparatory technician?s instructions for use, a value less than 500ng/ml (FEU) may help to exclude DVT and /or PE in outpatients when the assay is used with a clinical pretest probability assessment. D-Dimer used for DIC Screens Assay results should be used with other information, including the clinical context in forming a diagnosis. Performed By: #### 1 82200, [id number], [id number], [id number] #### [facility] Services [address] [place] [address] Clarifier: Fahad Cast MD ED Physician Reporton 2019 [...] Line Saline Flush: 3 mL, IV Push, [id number] Documented Medications Documented Eliquis 5 mg oral [...] Interp, Sinus rhythm with first-degree AV block, MN interval 256, QT/QTc/433, incomplete right bundle branch [...] /100WBC NA Lymph % 12.7 % NA Marengo % 8.4 % NA Neutrophil % 76.4 % NA Eosin % 1.8 % NA Basos % 0.6 % NA Lymph Count 1.05 x1000 LOW Marengo Count 0.70 x1000 NORMAL Neutrophil Count (ANC) [...] by: Monae Hernandez MD 03/10/2020 1:58 PM STUDY HALL SUPERVISOR Signed By: MONAE HERNANDEZ MD CT [...] by: Oni Liu MD 03/10/2020 3:50 PM STUDY HALL SUPERVISOR Signed By: ONI LIU MD . [...] Course: improving. Impression and Plan Diagnosis Syncope (CGT86-CT R55, Working, Medical) Plan Condition: Stable. Disposition: [...] accurately records my words and actions.. Normal [facility] ED Pre-Arrival Formon 2019 ED Pre-Arrival Form Pre-Arrival Summary Name: STR, Current Date: 03/10/2020 13:52:19 EST Gender: Date of : Age: Pre-Arrival Type: EMS ETA: 03/10/2020 14:15:00 EST Primary Care Physician: Presenting Problem: Pre-Arrival User: Neil Vázquez RN Referring Source: Location: [address] [place] [address] Emergency [address] [place] [address] ____ Notes: Vital Signs: Doctor Call Back: DNR Status: Miscellaneous Issues: Normal [facility] ED Progress Noteon 0 ED Progress Note report not put in by previous rn pt here for syncopal episode after diarrhea episode pt has hx of afib. pt covid+ report called to neil silva will come get pt Normal [facility] FERRITINon 03-10-2020 Ferritin [Mass/Vol] 32 ng/mL Normal 8-252 [facility] Comment on above: Performed By: #### 1 72748, [id number], [id number] #### [facility] Services [address] [place], [place] [id number] Clarifier: Fahad Cast MD HEMOon 03-10-2020 DIFF? No Normal [facility] Comment on above: Performed By: #### 1 85426, 771973, [id number] ####[facility] Pwwxyyah33892 [place], [place] [id number]) [phone] Director: Fahad Cast MD Erythrocyte distribution width (RBC) [Ratio] 14.5 % Normal 11.5-14.5 [facility] Comment on above: Performed By: #### 1 31346, 946045, [id number] ####[facility] Aunfsneg68231 [place], [place] [id number]) [phone] Director: Fahad Cast MD Hematocrit (Bld) [Volume fraction] 35.8 % Low 36.0-46.0 [facility] Comment on above: Performed By: #### 1 06030, 961003, 6942003 ####[facility] Hyqhpcjx17738 [place], [place] [id number]) [phone] Director: Fahad Cast MD Hemoglobin (Bld) [Mass/Vol] 11.7 g/dL Low 12.0-16.0 [facility] Comment on above: Performed By: #### 1 92591, 255548, [id number] ####[facility] Iwekavgg31697 [place], [place] [address]) [phone] Director: Fahad Cast MD MCH (RBC) [Entitic mass] 29.4 pg Normal 27.0-34.0 [facility] Comment on above: Performed By: #### 1 66911, 634115, [id number] ####[facility] Urxxctsl16749 [place], [place] [address]) [phone] Director: Fahad Cast MD MCHC (RBC) [Mass/Vol] 32.7 g/dL Normal 32.0-37.0 [facility] Comment on above: Performed By: #### 1 04376, 640476, 5584588 ####[facility] Z[address]clgkmj66[address] [place] [address] Medical Director: Fahad Cast MD MCV (RBC) [Entitic vol] 89.8 fL Normal 80.0-100.0 [facility] Comment on above: Performed By: #### 1 38168, 814712, 4129506 ####[facility] Ampqihbv49512 [place] [address] Medical Director: Fahad Cast MD Nucleated RBC (Bld) [#/Vol] 0 /100WBC Normal [facility] Comment on above: Performed By: #### 1 25814, 900239, 9862352 ####[facility] Raayerwd42420 [place] [address] Medical Director: Fahad Cast MD Platelet mean volume (Bld) [Entitic vol] 6.7 fL Low 7.4-10.4 [facility] Comment on above: Performed By: #### 1 80880, 385326, 3847497 ####[facility] Nbmimiaq82718 [place] [address] Medical Director: Fahad Cast MD Platelets (Bld) [#/Vol] 252 x1000 Normal 150-450 [facility] Comment on above: Performed By: #### 1 84527, 557685, 7982664 ####[facility] [address] [place] [address] Medical Director: Fahad Cast MD RBC (Bld) [#/Vol] 3.99 x10 Low 4.20-5.40 [facility] Comment on above: Result Comment: Note : RBC morphology is normal unless otherwise stated. Evaluation performed only if differential is requested. Performed By: #### 1 75903, 927563, 7185563 ####[facility] [address]wobta980[address] [place] [address] Medical Director: Fahad Cast MD WBC (Bld) [#/Vol] 8.3 10*3/uL Normal [facility] Comment on above: Performed By: #### 1 08253, 815631, 4716634 ####[facility] T[address]qdnkqt325[address] [place] [address] Medical Director: Fahad Cast MD WBC (Bld) [#/Vol] 8.3 x10 Normal 4.5-11.0 [facility] Comment on above: Performed By: #### 1 21195, 832525, [id number] ####[facility] Wdcgtrxn14676 [place] [address] Medical Director: Fahad Cast MD History and [...] 10 18:00) Resp Rate 19 br/min (MAR 10:05) SBP 105 mmHg (MAR 10 16:) DBP L 50mmHg (MAR 10:) Physical Exam: [...] ppx: On Eliquis OT MESA on Normal [facility] LACTATEon 03-10-2020 Lactate [Moles/Vol] 1.8 mmol/L Normal 0.4-2.0 [facility] Comment on above: Performed By: #### 1 87861 #### [facility] Services [address] [place] [address] Clarifier: Fahad Cast MD LIPon 03-10-2020 Lipase [Catalytic activity/Vol] 135 unit/L Normal 73-393 [facility] Comment on above: Performed By: #### 1 63004, 021753, 777249 ####[facility] [address] [place] [address] Medical Director: Fahad Csat MD MG LEVELon 03-10-2020 Magnesium [Mass/Vol] 1.9 mg/dL Normal 1.6-2.6 [facility] Comment on above: Performed By: #### 1 40632, 777383, 164175 ####[facility] Isnohxap33075 [place] [address] Medical Director: Fahad Cast MD PCTon 03-10-2020 Procalcitonin <0.05 Normal [facility] Comment on above: Result Comment: [...] or septic shock. Performed By: #### 1 03399, [id number], [id number], [id number] #### [facility] Services [address] [place] [address] Clarifier: Fahad Cast MD TROPONINon 03-10-2020 Troponin I.cardiac [Mass/Vol] ng/mL Normal 0.000-0.099 [facility] Comment on above: Result Comment: This test is a quantitative determination of cardiac troponin I. High levels of serum biotin may interfere with this test. Performed By: #### 1 66295, 404108, 458105 ####[facility] [address]axvcys[address]86 [place] [address] Medical Director: Fahad Cats MD XR CHEST PORTABLEon 03-10-20 20 XR [...] by: Monae Hernandez MD 03/10/2020 1:58 PM STUDY HALL SUPERVISOR Technologist: TS,THANG Dictated By: MONAE HERNANDEZ MD Signed By: MONAE HERNANDEZ MD Signed Out: 03/10/20 14:58:26 Normal [facility] Vital Signs Date Time Vital Sign Value Performing Clinician Facility 11-26-2023 14:08-0400 Body height 165.1 cm Miko Ohara MD Work Phone: [facility] 11-26-2023 14:08-0400 Body mass index (BMI) [Ratio] 27.96 kg/m2 Miko Ohara MD Work Phone: [facility] 11-26-2023 14:08-0400 Body temperature 97 [degF] Miko Ohara MD Work Phone: [facility] 11-26-2023 14:08-0400 Body weight 76.2 kg Miko Ohara MD Work Phone: [facility] 10-28-2023 08:41-0400 Body height 165.1 cm [facility] 10-28-2023 08:41-0400 Body mass index (BMI) [Ratio] 27.9 kg/m2 [facility] 10-28-2023 08:41-0400 Body weight 76.2 kg [facility] 10-28-2023 08:41-0400 Diastolic blood pressure 68 mm[Hg] [facility] 10-28-2023 08:41-0400 Heart rate 58 /min [facility] 10-28-2023 08:41-0400 Systolic blood pressure 106 mm[Hg] [facility] 08-20-2023 14:38-0400 Body height 165.1 cm Divine Mahmood Work Phone: [facility] 08-20-2023 14:38-0400 Body mass index (BMI) [Ratio] 27.96 kg/m2 Divine Mahmood Work Phone: [facility] 08-20-2023 14:38-0400 Body weight 76.2 kg Divine Mahmood Work Phone: [facility] 07-23-2023 14:45-0400 Body height 165.1 cm Divine Mahmood Work Phone: [facility] 07-23-2023 14:45-0400 Body mass index (BMI) [Ratio] 27.96 kg/m2 Divine Mahmood Work Phone: [facility] 07-23-2023 14:45-0400 Body weight 76.2 kg Divine Mahmood Work Phone: [employer] [facility] 2023 15:34-0500 Body temperature 97.9 [degF] Miko Ohara MD Work Phone: [facility] 2023 15:34-0500 Diastolic blood pressure 53 mm[Hg] Miko Ohara MD Work Phone: [facility] 2023 15:34-0500 Heart rate 80 /min Miko Ohara MD Work Phone: [facility] 2023 15:34-0500 Respiratory rate 16 /min Miko Ohara MD Work Phone: [facility] 2023 15:34-0500 SaO2% (BldA) [Mass fraction] 98 % Miko Ohara MD Work Phone: [facility] 2023 15:34-0500 Systolic blood pressure 110 mm[Hg] Miko Ohara MD Work Phone: [facility] 07-07-2023 16:39-0500 Body height 165.1 cm Miko Ohara MD Work Phone: [facility] 07-07-2023 16:39-0500 Body mass index (BMI) [Ratio] 28.02 kg/m2 Miko Ohara MD Work Phone: [facility] 07-07-2023 16:39-0500 Body weight 76.39 kg Miko Ohara MD Work Phone: [facility] 06-18-2023 14:31-0500 Body height 165.1 cm Miko Ohara MD Work Phone: [facility] 06-18-2023 14:31-0500 Body mass index (BMI) [Ratio] 28.12 kg/m2 Miko Ohara MD Work Phone: [facility] 06-18-2023 14:31-0500 Body weight 76.66 kg Miko Ohara MD Work Phone: [facility] 06-02-2023 11:19-0500 Body height 165.1 cm Donna Diaz MD Work Phone: [facility] 06-02-2023 11:19-0500 Body mass index (BMI) [Ratio] 28.12 kg/m2 Donna Diaz MD Work Phone: [facility] 06-02-2023 11:19-0500 Body weight 76.66 kg Donna Diaz MD Work Phone: [facility] 06-02-2023 11:19-0500 Diastolic blood pressure 68 mm[Hg] Donna Diaz MD Work Phone: [facility] 06-02-2023 11:19-0500 Heart rate 62 /min Donna Diaz MD Work Phone: [facility] 06-02-2023 11:19-0500 SaO2% (BldA) [Mass fraction] 99 % Donna Diaz MD Work Phone: [facility] 06-02-2023 11:19-0500 Systolic blood pressure 106 mm[Hg] Donna Diaz MD Work Phone: [facility] 05-14-2023 09:38-0500 Body height 165.1 cm Mkio Ohara MD Work Phone: [facility] 05-14-2023 09:38-0500 Body mass index (BMI) [Ratio] 29.12 kg/m2 Miko Ohara MD Work Phone: [facility] 05-14-2023 09:38-0500 Body temperature 98.2 [degF] Miko Ohraa MD Work Phone: [facility] 05-14-2023 09:38-0500 Body weight 79.38 kg Miko Ohara MD Work Phone: [facility] 10-30-2022 14:45-0400 Body height 165.1 cm Elliot Starks Other [facility] Other 10-30-2022 14:45-0400 Body mass index (BMI) [Ratio] 28.4 kg/m2 Elliot Starks Other [facility] Other 10-30-2022 14:45-0400 Body weight 77.43 kg Elliot Starks Other [facility] Other 10-30-2022 14:45-0400 Diastolic blood pressure 66 mm[Hg] Elliot Starks Other [facility] Other 10-30-2022 14:45-0400 Systolic blood pressure 123 mm[Hg] Elliot Starks Other [facility] Other 06-04-2022 11:30-0500 Body height 165.1 cm Elliot Starks Other [facility] Other 06-04-2022 11:30-0500 Body mass index (BMI) [Ratio] 28.29 kg/m2 Elliot Starks Other [facility] Other 06-04-2022 11:30-0500 Body weight 77.11 kg Elliot Starks Other [facility] Other 06-04-2022 11:30-0500 Diastolic blood pressure 64 mm[Hg] Elliot Starks Other [facility] Other 06-04-2022 11:30-0500 SaO2% (BldA) [Mass fraction] 99 % Elliot Starks Other [facility] Other 06-04-2022 11:30-0500 Systolic blood pressure 104 mm[Hg] Elliot Starks Other [facility] Other Encounters Encounter Date Encounter Type Care Provider Facility Start: 06-01-2024 ambulatory Alfreda Miller Facility:[facility] Start: 11-26-2023 End: 11-26-2023 Office outpatient visit 15 minutes Miko Ohara MD Work Phone: [facility] Comment on above: Hx of total hip arth roplasty, right (Primary Dx) Start: 11-26-2023 End: 11-26-2023 Subsequent hospital visit by physician Miko Ohara MD Work Phone: [facility] Start: 10-28-2023 End: 10-28-2023 ambulatory [facility] Work Phone: Start: 10-28-2023 End: 10-28-2023 Patient encounter procedure [facility] Work Phone: Start: 09-30-2023 End: 10-01-2023 ambulatory ANDREW CHOI [facility] Start: 09-17-2023 Telephone encounter Matt Duron Hematology/Oncology Comment on above: Yearly Exam With Shane keyram Start: 08-20-2023 End: 08-20-2023 Subsequent hospital visit by physician Divine Mahmood Work Phone: [facility] Start: 08-20-2023 ambulatory ELLIOT [facility] Start: 08-20-2023 End: 08-20-2023 Postop follow up visit related to original px Divine Mahmood Work Phone: [facility] Comment on above: Right hip pain (Prim hayden Dx) Start: 08-20-2023 ambulatory ELLIOT [facility] Start: 08-12-2023 End: 08-12-2023 ambulatory [facility] Start: 07-23-2023 End: 07-23-2023 Postop follow up visit related to original px Divine Mahmood Work Phone: [facility] Comment on above: Tear of gluteus mini mus tendon, right, initial encounter (Primary Dx) Start: 07-23-2023 End: 07-23-2023 Subsequent hospital visit by physician Divine Mahmood Work Phone: [facility] Start: 07-23-2023 ambulatory ELLIOT [facility] Start: 07-17-2023 Refill Mike galloway MD Work Phone: [facility] Comment on above: Med Refill Start: 07-15-2023 End: 07-16-2023 Emergency department patient visit EILEEN BLANTON [facility] Start: 07-15-2023 Telephone encounter Ashia Goncalves RN [facility] Start: 07-15-2023 End: 07-15-2023 Emergency department patient visit ELLIOT Malini [facility] Start: 07-07-2023 End: 2023 Encounter for other preprocedural examination [place] MAYDA [facility] Start: 07-07-2023 End: 2023 Evaluation and management of inpatient Miko Ohara MD Work Phone: [facility] Comment on above: Status post revision of total hip Start: 07-07-2023 End: 2023 Patient encounter status Miko Ohara MD Work Phone: [facility] Start: 07-01-2023 Patient encounter status [facility] Start: 06-25-2023 ambulatory MIKO OHARA [facility] Start: 06-19-2023 Telephone [facility] Comment on above: Pre op clearance Start: 06-18-2023 End: 06-18-2023 Office outpatient visit 40 minutes Miko Ohara MD Work Phone: [facility] Comment on above: Right hip pain (Prim hayden Dx) Start: 06-18-2023 ambulatory [facility] Start: 06-08-2023 End: 06-09-2023 ambulatory Daisy Liz MD Facility:[facility] Start: 06-02-2023 End: 06-02-2023 Office outpatient visit 25 minutes Donna Diaz MD Work Phone: [facility] Comment on above: Paroxysmal atrial fi brillation (CMS-HCC) (Primary Dx); Primary hypertension; Chronic coronary artery disease Start: 06-02-2023 End: 06-02-2023 ambulatory MERCY DIAZ [facility] Start: 06-01-2023 ambulatory [facility] Start: 05-28-[address] [facility] Start: 05-27-2023 End: 05-28-2023 ambulatory Alfreda Miller Facility:[facility] Start: 05-25-2023 End: 05-26-2023 ambulatory [facility] Start: 05-18-2023 End: 05-19-2023 ambulatory Daisy Liz MD Facility:[facility] Start: 05-14-2023 ambulatory [facility] Start: 05-14-2023 End: 05-14-2023 Office outpatient new 30 minutes Miko Ohara MD Work Phone: [facility] Comment on above: Pain in prosthetic j oint, initial encounter (Primary Dx); Primary osteoarthritis of right hip Start: 05-14-2023 End: 05-14-2023 Subsequent hospital visit by physician Miko Ohara MD Work Phone: [facility] Start: 05-14-2023 ambulatory [facility] Start: 03-30-2023 (Televisit) [facility]visit [facility] Start: 03-30-2023 End: 03-30-2023 ambulatory Elliot Starks Other [facility] Other Start: 02-11-2023 End: 02-12-2023 ambulatory Alfreda Miller Facility:[facility] Start: 02-11-2023 End: 02-11-2023 Patient encounter procedure Alfreda Miller [facility] Start: 12-29-2022 Preoperative state [facility]anks [facility] Start: 11-17-2022 End: 11-17-2022 ambulatory Elliot Starks Other [facility] Other Start: 11-17-2022 Telephone encounter Elliot Starks [facility] Start: 11-06-2022 ambulatory Alfreda Miller Facility:[facility] Start: 10-30-2022 End: 10-30-2022 ambulatory Elliot Starks Other [facility] Other Start: 10-30-2022 Office outpatient vi sit 15 minutes Elliot Starks [facility] Start: 10-29-2022 End: 10-29-2022 ambulatory Elliot Starks Other [facility] Other Start: 10-29-2022 Telephone encounter Elliot Starks [facility] Start: 10-27-2022 Nursing evaluation o f patient and report Elliot Starks [facility] Start: 10-27-2022 End: 10-27-2022 ambulatory Elliot Starks [facility] Other Start: 10-27-2022 End: 10-27-2022 Departed Referred MD Elliot Starks Work Phone: [facility] [place] Work Phone: Start: 09-11-2022 Telephone encounter Matt Duron Hematology/Oncology Comment on above: Orders Start: 08-11-2022 End: 08-11-2022 ambulatory Elliot Starks Other [facility] Other Start: 08-11-2022 Nursing evaluation o f patient and report Elliot Starks [facility] Start: 07-17-2022 (Televisit) Televisit Elliot Starks Jose De Jesus [facility] Start: 07-17-2022 End: 07-17-2022 ambulatory Elliot Starks Other [facility] Other Start: 06-23-2022 End: 06-23-2022 ambulatory Elliot Starks Other [facility] Other Start: 06-23-2022 Nursing evaluation o f patient and report Elliot Starks [facility] Start: 06-09-2022 End: 06-09-[address] ELLIOT STARKS Facility:[facility] Start: 06-06-2022 End: 06-06-2022 ambulatory Elliot Starks Other [facility] Other Start: 06-06-2022 Telephone encounter Elliot Starks [facility] Start: 06-04-2022 End: 06-04-2022 ambulatory Elliot Starks Other [facility] Other Start: 06-04-2022 Office outpatient vi sit 25 minutes Elliot Starks [facility] Start: 05-21-2022 End: 05-21-2022 ambulatory Elliot Starks Other [facility] Other Start: 05-21-2022 Telephone encounter Elliot Starks [facility] Start: 04-26-2022 End: 04-26-[address] ELLIOT STARKS Facility:[facility] Start: 04-14-2022 End: 04-14-[address] ELLIOT STARKS Facility:[facility] Start: 12-18-2021 End: 12-18-2021 ambulatory Melchor Goff [place] Facility:[facility] Start: 10-03-2021 Telephone encounter Andrew black MD Work Phone: Hematology/Oncology Comment on above: Lab Orders Start: 09-26-2021 Telephone encounter Mikaela jimenez RN Work Phone: Hematology/Oncology Comment on above: Radiology Mammogram Start: 12-02-2016 End: 12-03-2016 Ambulatory DEFAULT PHYSICIAN Facility:[facility] Procedures Date Procedure Procedure Detail Performing Clinician Start: 2023 Basic metabolic pane l calcium total Chance Mahoney MD Work Phone: Start: 2023 Complete blood count with white cell differential, automated Paula Fitzpatrick ASSURANCE SERVICES MANAGER HEALTH CARE-RESOURCE CONSERVATION SPECIALIST Work Phone: Start: 07-07-2023 Cultyp nuc acid amp prb cult/isolate ea orgnism Chance Mahoney MD Work Phone: Start: 07-07-2023 Radiologic examinati on pelvis 1/2 views Paula Fitzpatrick ASSURANCE SERVICES MANAGER HEALTH CARE-RESOURCE CONSERVATION SPECIALIST Work Phone: Start: 07-07-2023 Cell count miscellan [...] Start: 07-07-2023 Blood group typing, RH phenotyping Larissa Rollins PA-C Work Phone: Start: 06-02-2023 Ecg [...] Author Start: 07-14-2024 Tobacco Screening Tobacco Screening [facility] Start: 07-14-2024 End: 07-14-2024 Patient encounter procedure 07/14/2024 11:20 AM EDT Office Visit [facility] [address] [place] [phone] Miko Ohara MD [address] [place] [id number] [facility] Start: 07-07-2024 Potassium [Moles/vol ume] in Serum or Plasma POTASSIUM [facility] Start: 06-02-2024 Adult BMI Screening Adult BMI Screen ing [facility] Start: 06-02-2024 Tobacco Screening Tobacco Screening [facility] Start: 01-03-2024 Influenza vaccination C [facility] Start: 11-26-2023 End: 11-26-2023 Patient encounter procedure 11/26/2023 2:00 PM EDT Office Visit [facility] [address] [place] [phone] Miko Ohara MD [address] [place] [phone] [facility] Start: 10-09-2023 DIABETES SCREEN DIABETES SCREEN [facility] Start: 10-09-2023 Diabetes Screening Diabetes Screenin g [facility] Start: 08-20-2023 End: 08-20-2023 Patient encounter procedure 08/20/2023 2:30 PM EDT Office Visit [facility] [address] [place] [phone] Divine Mahmood [address] [place] [phone] [facility] Start: 08-12-2023 End: 08-12-2023 Patient encounter procedure 08/12/2023 8:00 AM EDT Office Visit [facility] [address] [place] [phone] Miko Vasquez, ASSURANCE SERVICES MANAGER HEALTH CARE-RESOURCE CONSERVATION SPECIALIST [address] [place] [address] [facility] Start: 07-23-2023 End: 07-23-2023 Patient encounter procedure 07/23/2023 2:30 PM EDT Office Visit [facility] [address] [place] [phone] Divine Mahmood [address] [place] [phone] [facility] Start: 07-07-2023 End: 07-07-2023 Evaluation and management of inpatient [facility] Periop Comment on above: Tear of rotator [...] 06/25/2023 10:00 AM EST Pre-Operative Nurse Assessment [facility] Pre Admission [address] [place] [phone] Pre-op testing (Primary Dx); Essential (primary) hypertension; Abnormal finding of blood chemistry, unspecified; Abnormal coagulation profile [facility] Pre Admission Comment on above: Pre-op testing (Prim hayden Dx); Essential (primary) hypertension; Abnormal finding of blood chemistry, unspecified; Abnormal coagulation profile Start: 05-28-2023 End: 05-28-2023 Patient encounter procedure 05/28/2023 11:00 AM EST Office Visit [facility] [address] [place] [address] Antelmo Richey, DO [address] [place] [address] [facility] Start: 05-14-2023 End: 05-14-2024 MR Hip - right WO contrast MRI HIP RIGHT WITHOUT CONTRAST Imaging Routine Pain in prosthetic joint, initial encounter Expected: 05/14/2023, Expires: 05/14/2024 [facility] Comment on above: Expected: 05/14/2023 , Expires: 05/14/2024 Start: 05-04-2023 Advance Directive Discussion Advance Directive Discussion [facility] Start: 05-04-2023 Behavioral Health Screening Behavioral Health Screening [facility] Start: 01-02-2023 Covid-19 Vaccine ( season) Covid-19 Vaccine ( season) [facility] Start: 01-02-2023 COVID-19 VACCINE ( season) COVID-19 VACCINE ( season) [facility] Start: 01-02-2023 Influenza vaccination INFLUENZA (Sea son Ended) [facility] Start: 10-27-2022 Bacteria identified in Urine by Culture [facility] Start: 05-04-2022 ADVANCE DIRECTIVE DISCUSSION ADVANCE DIRECTIVE DISCUSSION [facility] Start: 05-04-2022 DEPRESSION ASSESSMENT DEPRESSION ASS ESSMENT [facility] Start: 04-08-2022 Screening for malign ant neoplasm of colon Colonoscopy [facility] Start: 01-02-2022 Influenza vaccination INFLUENZA (Sea son Ended) [facility] Start: 10-07-2021 End: 12-07-2021 Cancer Ag 27-29 [Units/volume] in Serum or Plasma CA 27.29 BLOOD Lab Routine Malignant neoplasm of upper-outer quadrant of left breast in female, estrogen receptor positive (HCC) Expected: 10/07/2021, Expires: 12/07/2021 [facility] Work Phone: Comment on above: Expected: 10/07/2021 , Expires: 12/07/2021 Start: 10-07-2021 End: 12-07-2021 CBC W Auto Differential panel - Blood CBC + DIFF Lab Routine Malignant neoplasm of upper-outer quadrant of left breast in female, estrogen receptor positive (HCC) Expected: 10/07/2021, Expires: 12/07/2021 [facility] Work Phone: Comment on above: Expected: 10/07/2021 , Expires: 12/07/2021 Start: 10-07-2021 End: 12-07-2021 Comprehensive metabolic 2000 panel - Serum or Plasma COMP METABOLIC PANEL Lab Routine Malignant neoplasm of upper-outer quadrant of left breast in female, estrogen receptor positive (HCC) Expected: 10/07/2021, Expires: 12/07/2021 [facility] Work Phone: Comment on above: Expected: 10/07/2021 , Expires: 12/07/2021 Start: 09-25-2021 Mammography MAMMOGRAM [facility] Start: 05-04-2021 ADVANCE DIRECTIVE DISCUSSION ADVANCE DIRECTIVE DISCUSSION [facility] Start: 11-17-2020 COVID-19 VACCINE (3 - Booster for Pfizer series) COVID-19 VACCINE (3 - Booster for Pfizer series) [facility] Start: 10-06-2020 Adult depression screening assessment DEPRESSION SCREENING [facility] Start: 08-15-2020 COVID-19 VACCINE (3 - Booster for Pfizer series) COVID-19 VACCINE (3 - Booster for Pfizer series) [facility] Start: 01-05-2019 Pneumococcal Vaccine : 65+ (2 of 2 - PCV) Pneumococcal Vaccine: 65+ (2 of 2 - PCV) [facility] Start: 01-05-2019 PNEUMOCOCCAL: 65+ (2 - PCV) PNEUMOCOCCAL: 65+ (2 - PCV) [facility] Start: 07-07-2012 BONE DENSITY BONE DENSITY [facility] Start: 07-07-2012 Fall Risk Screening Fall Risk Screen ing [facility] Start: 07-07-2012 Screening for osteoporosis Bone Density Screening [facility] Start: 2007 RSV Vaccine (1 - 1-d ose 60+ series) RSV Vaccine (1 - 1-dose 60+ series) [facility] Start: 07-07-1997 Administration of varicella zoster vaccine Zoster (Shingles) Vaccine (1 of 2) [facility] Start: 07-07-1997 SHINGRIX VACCINE (1 of 2) SHINGRIX VACCINE (1 of 2) [facility] Start: 07-07-1997 Zoster vaccine hzv l david for subcutaneous use ZOSTER (SHINGLES) VACCINE (1 of 2) [facility] Start: 07-07-1992 COLOGUARD (FIT-DNA) COLOGUARD (FIT-D NA) [facility] Start: 07-07-1992 Colonoscopy COLONOSCOPY [facility] Start: 07-07-1992 COLORECTAL CANCER SCREENING COLORECTAL CANCER SCREENING [facility] Start: 07-07-[address] COLONOGRAPHY [facility] Start: 07-07-1992 FECAL OCCULT BLOOD FECAL OCCULT BLOO D [facility] Start: 07-07-1992 LIPID SCREEN LIPID SCREEN [facility] Start: 07-07-1992 Screening for malign ant neoplasm of colon COLORECTAL CANCER SCREENING DISCUSSION [facility] Start: 07-07-1992 SIGMOIDOSCOPY SIGMOIDOSCOPY [facility] Start: 1987 Lipid panel LIPID SCREENING [facility] Start: 1987 Screening for malign ant neoplasm of breast MAMMOGRAM SCREENING DISCUSSION [facility] Start: 07-07-1968 Screening for malign ant neoplasm of cervix CERVICAL CANCER SCREENING DISCUSSION [facility] Start: 07-07-1966 DTaP,Tdap and Td Vaccines (1 - Tdap) DTaP,Tdap and Td Vaccines (1 - Tdap) [facility] Start: 07-07-1966 Third diphtheria, tetanus and acellular pertussis (DTaP) vaccination TDAP (ADULT) [facility] Start: 07-07-1966 Urine microalbumin profile [facility] Start: 07-07-1965 Adult BMI Follow Up Plan Adult BMI F ollow Up Plan [facility] Start: 07-07-1965 HEPATITIS C SCREENING HEPATITIS C SC REENING [facility] Start: 1959 Depression Screening Depression Scre ening [facility] Start: 07-07-1953 PNEUMOCOCCAL: 65+ (1 - PCV) PNEUMOCOCCAL: 65+ (1 - PCV) [facility] Start: 1945 Hepatitis C screening HEPATITI S C VIRUS SCREENING [facility] Start: 1945 Medicare Annual Well ness Visit Medicare Annual Wellness Visit [facility] Start: 1945 Potassium [Moles/vol ume] in Serum or Plasma POTASSIUM [facility] Start: 1945 Screening for osteoporosis DEXA SCAN DISCUSSION [facility] Start: 1945 Tetanus vaccination TETANUS [facility] ANAEROBE CULTURE [facility] Comment on above: Release Upon Orderin g for 1 Occurrences starting 07/07/2023 Bacterial culture an d sensitivity CULTURE WOUND Microbiology Routine 07/07/2023 2:27 PM EST [facility] BODY FLUID CELL COUNT BODY FLUID CELL COUNT Fluids Routine Tear of rotator cuff of right hip, initial encounter 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, initial encounter Release Upon Ordering for 1 Occurrences starting 07/07/2023 [facility] Comment on above: Release Upon Orderin g for 1 Occurrences starting 07/07/2023 End: 10-16-2024 DBT Breast - bilateral screening SHANE SCREENING W YAW Radiology Routine Encounter for screening mammogram for malignant neoplasm of breast 1 Occurrences starting 09/17/2023 until 10/16/2024 [facility] Work Phone: Comment on above: 1 Occurrences starti ng 09/17/2023 until 10/16/2024 End: 07-07-2023 Fungus identified in Unspecified specimen by Culture Personal Comment on above: Release Upon Orderin g for 1 Occurrences starting 07/07/2023 One Time for 1 Occur rences starting 07/07/2023 until 07/07/2023 End: 10-26-2022 SHANE SCREENING W YAW SHANE SCREENING W YAW Radiology Routine Encounter for screening mammogram for malignant neoplasm of breast 1 Occurrences starting 09/26/2021 until 10/26/2022 [facility] Work Phone: Comment on above: 1 Occurrences starti ng 09/26/2021 until 10/26/2022 End: 10-11-2023 SHANE SCREENING W YAW SHANE SCREENING W YAW Radiology Routine Encounter for screening mammogram for malignant neoplasm of breast 1 Occurrences starting 09/11/2022 until 10/11/2023 [facility] Work Phone: Comment on above: 1 Occurrences starti ng 09/11/2022 until 10/11/2023 End: 07-07-2023 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 Personal Comment on above: Release Upon Orderin g for 1 Occurrences starting 07/07/2023 One Time for 1 Occur rences starting 07/07/2023 until 07/07/2023 XR Pelvis and Hip - right Views XR HIP WITH PELVIS RIGHT Imaging Routine Primary osteoarthritis of right hip 05/14/2023 9:20 AM [facility] Personal Work Phone: XR Pelvis and Hip - right Views XR HIP WITH PELVIS RIGHT Imaging Routine Tear of gluteus minimus tendon, right, initial encounter 07/23/2023 2:22 PM EDT [facility] XR Pelvis and Hip - right Views XR HIP WITH PELVIS RIGHT Imaging Routine Right hip pain 08/20/2023 3:17 PM EDT Personal XR Pelvis and Hip - right Views XR HIP WITH PELVIS RIGHT Imaging Routine Hx of total hip arthroplasty, right 11/26/2023 1:53 PM ED [facility] Immunizations Immunization Date Immunization Notes Care Provider Fa cility 02-10-2023 influenza virus vaccine, unspecified formulation Alfreda Lue [facility] 02-01-2022 influenza virus vaccine, unspecified formulation Alfreda Lue [facility] 08-13-2021 SARS-CoV-2 mRNA (irgfzvjxjgx-mvln-lehtv se) vaccine Alfreda Lue [facility] 01-29-2021 SARS-CoV-2 (COVID-19 ) mRNA BNT-162b2 vax Alfreda Lue [facility] Comment on above: Result Comment: 2022: [id number] 06-20-2020 COVID-19 vaccine, ag e 12+ yr (PFIZER-BIONTECH - PURPLE TOP) Mikaela Thompson RN Work Phone: [facility] 05-28-2020 SARS-CoV-2 (COVID-19 ) mRNA BNT-162b2 vax Alfreda Lue [facility] 05-18-2020 COVID-19 vaccine, ag e 12+ yr (PFIZER-BIONTECH - PURPLE TOP) Mikaela Thompson RN Work Phone: [facility] 01-27-2020 influenza virus vaccine, split virus (incl. purified surface antigen) Elliot Starks Other [facility] Other 01-27-2020 influenza virus vaccine, unspecified formulation Alfreda Lue [facility] 01-20-2019 influenza virus vaccine, unspecified formulation Alfreda Lue [facility] 01-20-2019 influenza, high dose seasonal, preservative-free Mikaela Thompson RN Work Phone: [facility] 03-09-2018 influenza virus vaccine, unspecified formulation Alfreda Lue [facility] 01-05-2018 influenza virus vaccine, split virus (incl. purified surface antigen) Elliot Starks Other [facility] [employer] Other 01-05-2018 influenza virus vaccine, unspecified formulation Alfreda Lue [facility] 01-05-2018 influenza, high dose seasonal, preservative-free Mikaela Thompson RN Work Phone: [facility] 01-05-2018 pneumococcal polysaccharide vaccine, 23 valent Mikaela Thompson RN Work Phone: [facility] 02-25-2017 influenza virus vaccine, unspecified formulation Alfreda Lue [facility] 02-17-2017 pneumococcal polysaccharide vaccine, 23 valent Alfreda Lue [facility] 02-05-2017 influenza virus vaccine, split virus (incl. purified surface antigen) Elliot Starks Other [facility] [employer] Other 02-05-2017 influenza virus vaccine, unspecified formulation Alfreda Lue [facility] 02-05-2017 pneumococcal conjuga te vaccine, 13 valent Alfreda Lue [facility] 02-01-2002 pneumococcal polysaccharide vaccine, 23 valent Elliot Starks Other [facility] Payers Date Payer Category Payer Private Health Insurance 2022 Self-pay 2014 Medicare AETNA MEDICARE A ETNA MEDICARE PPO [id number] 2014-Present [phone] [address] [place] [address] PPO [id number] 2014 Medicare [id number] 1959 Medicare [id number] 1945 Unknown [id number] 2.16.840.1.107416.3.579.2.5 93 1947 Unknown [id number] 2.16.840.1.910646.3.579.2.5 93 1947 Unknown [id number] 2.16.840.1.487333.3.579.2.5 93 1947 Unknown [id number] 2.16.840.1.536303.3.579.2.7 18 1947 Unknown [id number] 2.16.840.1.282657.3.579.2.7 27 1947 Unknown [id number] 2.16.840.1.334413.3.579.2.7 27 1947 Unknown [id number] 2.16.840.1.960214.3.579.2.7 27 1947 Unknown [id number] 2.16.840.1.522592.3.579.2.1 96 1947 Unknown [id number] 2.16.840.1.214010.3.579.2.1 96 1947 Unknown [id number] 2.16.840.1.778651.3.579.2.1 96 1947 Unknown [id number] 2.16.840.1.192337.3.579.2.1 286 1947 Unknown [id number] 2.16.840.1.936139.3.579.2.1 286 -194 Unknown [id number] 2.16.840.1.166264.3.579.2.1 286 1947 Unknown [id number] 2.16.840.1.019917.3.579.2.1 286 194 Unknown [id number] 2.16.840.1.217991.3.579.2.1 286 1947 Unknown [id number] 2.16.840.1.994653.3.579.2.9 83 194 Unknown [id number] 2.16.840.1.674452.3.579.2.9 83 1947 Unknown [id number] 2.16840.1.097625.3.579.2.9 83 1947 Unknown [id number] 2.840.1.655807.3.579.2.9 83 1947 Unknown [id number] 2.840.1.185879.3.579.2.9 83 1947 Unknown [id number] 2.16840.1.372067.3.579.2.9 83 1947 Unknown [id number] 2.840.1.230342.3.579.2.9 83 194 Unknown [id number] 2.16840.1.725373.3.579.2.9 83 1947 Unknown [id number] 2.16.840.1.521065.3.579.2.9 83 1947 Unknown [id number] 2.16.840.1.059354.3.579.2.9 83 1947 Unknown [id number] 2.16.840.1.795928.3.579.2.9 83 1947 Unknown [id number] 2.16.840.1.276327.3.579.2.9 83 Private Health Insurance [employer] [facility] M [id number] Unknown Unknown [id number] 2.16.840.1.528429.3.579.2.5 31 Social History Date Type Detail Facility Start: 12-03-2015 End: 12-06-2015 Tobacco smoking status NHIS Ex-smoker [facility] End: 12-05-1990 History of tobacco use Current smoker [facility] Start: 12-03-2015 End: 07-07-2023 Cigarettes smoked current (pack per day) - Reported 1 [facility] Start: 12-03-2015 End: 05-14-2023 Tobacco use and exposure Smokeless tobacco non-user [facility] Start: 10-08-2020 End: 11-26-2023 Alcohol intake Current drinker of alcohol (finding) [facility] Start: 1945 Sex Assigned At Not on file C [facility] Start: 05-14-2023 End: 07-07-[address] [facility] End: 12-05-1990 History of tobacco use Cigarette Smoker [facility] Start: 1945 Sex Assigned At Female F [facility] Tobacco smoking status Never [facility] Start: 05-14-2023 Tobacco smoking stat us DCIS Never smoked tobacco [facility] Start: 03-31-2022 Tobacco Comment quit in 1989 [facility] Start: 03-19-2017 End: 06-19-2023 Alcohol Comment social [facility] Start: 05-09-2018 Gender identity Identifies as female gender (finding) [facility] Has the electric, ga s, oil, or water company threatened to shut off services in your home in past 12Mo No [facility] (I/We) worried wheth er (my/our) food would run out before (I/we) got money to buy more. Never true [facility] Equipment Procedure Code Equipment Code Equipment Origin al Text Equipment Identifier Dates Anchors, 5.5 Non Punching - [id number] Start: 03-05-2024 Anchors, 5.5 Non Punching - [id number] Start: 07-07-2023 Functional Status Date Assessment Result Facility 02-11-2023 Functional Status N/A [facility] Clinical Notes 09-26-2021 to 11-26-2023 Hal Fischer - 11/26/2023 2:00 PM Kaylin Ohara MD - 11/26/2023 2:00 PM EDTTelephone Encounter - Matt Adams RN - 09/17/2023 1:30 PM EDTEva Abrams - 08/20/2023 2:30 PM EDT Note Date & Type Note Facility 11-26-2023 History of Presen t illness Narrative Ortho Nurse - Established Patient Intake Room#: 3 --- Patient presents today for 4 month follow-up of RTHA. Patient states that pain is 2/10 today. Patient states that she is improved especially with PT, but is still limping more than she anticipated. Patient has been doing PT at [facility] and this helps, says next week is her last session. Patient states that she is due for nerve block in SI joint at [facility] who she sees regularly, states that she needs approval from Dr. Ohara on this. Date: 11/26/2023 2:25 PM Patient: Bettie Burns MR#: [id number] : 1945 Age: 78 y.o. Referring Physician: Self, Self Insurance: Payor: MEDICARE AETNA HMO OR PPO / Plan: MEDICARE A[employer] PPO / Product Type: *No Product type* / Chief Complaint Patient presents with Right Hip - Pain Visit Vitals Temp 97 F (36.1 C) Ht 1.651 m (5' 5 ) Wt 76.2 kg (168 lb) BMI 27.96 kg/m Pain Presence of Pain: reports pain/discomfort Pain Location: hip, right Select Pain Scale: DVPRS (Defense and Veterans Pain Rating Scale) (Adult-Cognitively Intact) Pain Location: hip, right Select Pain Scale: DVPRS (Defense and Veterans Pain Rating Scale) (Adult-Cognitively Intact) Recent Labs Lab Results Component Value Date [...] Hematuria had it forever, it's just normal Macular degeneration of both eyes Migraine Past Surgical History: Procedure Laterality Date [...] LUMPECTOMY FOOT SURGERY HEART CATHETERIZATION no stents MN ENDOMETRIAL CRYOABLATION W/US & ENDOMETRIAL CR REMOVAL BILIARY DUCT/GALLBLADDER CALCULI/DEBRIS PERCUTANEOUS W/ IMAGE [...] x 1 month, then 2x/week for maintainence, [facility]/pharmacy #[id number], 165, cm, 02/11/23 10:41:00 [...] meals). No facility-administered medications prior to visit. Current Outpatient Medications: Acetaminophen 325 MG tablet, Take 2 tablets by mouth every 4 hours as needed for Mild Pain., Disp: 50 tablet, Rfl: 1 apixaban 2.5 MG tablet, Take 2 tablets by mouth every 12 hours., Disp: , Rfl: Atenolol 50 MG tablet, Take 1.5 tablets by mouth daily. am, Disp: , Rfl: baclofen 10 MG tablet, Take 1 tablet by mouth 3 times daily. NEEDED, Disp: , Rfl: clarithromycin 500 MG tablet, Take one tab one hour prior to dental procedure., Disp: 2 tablet, Rfl: 1 Docusate 100 MG capsule, Take 1 capsule by mouth 2 times daily., Disp: 60 capsule, Rfl: 0 ESTRACE VAGINAL 0.1 MG/GM cream, See Instructions, 42.5 gm, Refill(s) 3, apply pea size amount to urethra/inner vagina 3x/week x 1 month, then 2x/week for maintainence, [facility]/pharmacy #[id number], 165, cm, 02/11/23 10:41:00 EDT, Height/Length Dosing, 77.5, kg, 02/11/23 10:41:00 EDT, Weight Dosing, Disp: , Rfl: Flecainide 50 MG tablet, Take 1 tablet by mouth Twice daily., Disp: , Rfl: hydroCHLOROthiazide 25 MG tablet, Take 1 tablet by mouth daily., Disp: , Rfl: Lisinopril 20 MG tablet, Take 1 tablet by mouth daily., Disp: , Rfl: Multiple Vitamin (multivitamin) capsule, Take 1 capsule by mouth daily., Disp: , Rfl: NON-FORMULARY, Med Name:Neuveria vitamin 1 qd, Disp: , Rfl: OMEPRAZOLE PO, Take 20 mg by mouth daily. am, Disp: , Rfl: oxyCODONE 5 MG tablet, Take 1-2 tabs po q 4-6 hours prn pain. Wean as tolerated., Disp: 30 tablet, Rfl: 0 potassium chloride 10 MEQ Tab CR tablet ER, Take 1 tablet by mouth daily., Disp: , Rfl: SUMAtriptan 25 MG tablet, as needed., Disp: , Rfl: temazepam 15 MG capsule, Take 2 capsules by mouth At bedtime as needed for Sleep., Disp: , Rfl: TROSPIUM CHLORIDE PO, Take 20 mg by mouth 2 times daily (take before meals)., Disp: , Rfl: Allergies: She is allergic to *adhesive tape, hydrocodone-acetaminophen, levofloxacin, cephalexin, latex, morphine, oxycodone, penicillins, and tramadol. HPI: Patient is here today for evaluation of their operative hip. She is status post massive abductor repair right hip . She is about 4 months out and reports that she is doing well and is pleased with the outcome of the intervention. The hip feels better now than it did before, and she is not having any new symptoms with it. Her pain is a 2 on a 10 point pain scale. PHYSICAL EXAM: The bilateral lower extremities were evaluated. The operative lower extremity is soft, nontender with full and supple motion of the hip. No pain, no impingement. No instability. The contralateral extremity has full motion, normal stability, no tenderness. Bilateral lower extremities have normal neurovascular status. DIAGNOSTIC STUDIES/INTERPRETATION: Plain film radiographs reviewed. She has a total right hip massive abductor repair in good position and alignment. No evidence of prosthetic implant loosening or migration. IMPRESSION: Stable status post right hip massive abductor repair, doing well. PLAN: I reviewed my findings with patient. Overall, I am pleased with the outcome of intervention. She has made an excellent recovery. We discussed the stages of healing along with what symptoms can be expected at current stage of healing. We then discussed the benefits of performing a variety of exercises at home, with a physical therapist or local gym. She understands and agrees to continue this in a slow, steady manner. I expect continued improvement in strength and mobility moving forward. I recommend followup at one year postop for repeat clinical and radiographic examination or sooner if any new symptoms develop. She will call with any questions or concerns in the meantime. Eva Abrams I have reviewed the findings of my clinical staff below and agree with their assessment. Ortho Nurse - Established Patient Intake Room#: 3 --- Patient presents today for 4 month follow-up of RTHA. Patient states that pain is 2/10 today. Patient states that she is improved especially with PT, but is still limping more than she anticipated. Patient has been doing PT at [facility] and this helps, says next week is her last session. Patient states that she is due for nerve block in SI joint at [facility] who she sees regularly, states that she needs approval from Dr. Ohara on this. Date: 11/26/2023 2:25 PM Patient: Bettie Burns MR#: [id number] : 1945 Age: 78 y.o. Referring Physician: Self, Self Insurance: Payor: MEDICARE A[employer] HMO OR PPO / Plan: MEDICARE [employer] PPO / Product Type: *No Product type* / Chief Complaint Patient presents with Right Hip - Pain Visit Vitals Temp 97 F (36.1 C) Ht 1.651 m (5' 5 ) Wt 76.2 kg (168 lb) BMI 27.96 kg/m Pain Presence of Pain: reports pain/discomfort Pain Location: hip, right Select Pain Scale: DVPRS (Defense and Veterans Pain Rating Scale) (Adult-Cognitively Intact) Pain Location: hip, right Select Pain Scale: DVPRS (Defense and Veterans Pain Rating Scale) (Adult-Cognitively Intact) Recent Labs Lab Results Component Value Date [...] Hematuria had it forever, it's just normal Macular degeneration of both eyes Migraine Past Surgical History: Procedure Laterality Date [...] LUMPECTOMY FOOT SURGERY HEART CATHETERIZATION no stents MN ENDOMETRIAL CRYOABLATION W/US & ENDOMETRIAL CR REMOVAL BILIARY DUCT/GALLBLADDER CALCULI/DEBRIS PERCUTANEOUS W/ IMAGE [...] x 1 month, then 2x/week for maintainence, [facility]/pharmacy #[id number], 165, cm, 02/11/23 10:41:00 EDT, Height/Length Dosing, [...] meals). No facility-administered medications prior to visit. Current Outpatient Medications: Acetaminophen 325 MG tablet, Take 2 tablets by mouth every 4 hours as needed for Mild Pain., Disp: 50 tablet, Rfl: 1 apixaban 2.5 MG tablet, Take 2 tablets by mouth every 12 hours., Disp: , Rfl: Atenolol 50 MG tablet, Take 1.5 tablets by mouth daily. am, Disp: , Rfl: baclofen 10 MG tablet, Take 1 tablet by mouth 3 times daily. NEEDED, Disp: , Rfl: clarithromycin 500 MG tablet, Take one tab one hour prior to dental procedure., Disp: 2 tablet, Rfl: 1 Docusate 100 MG capsule, Take 1 capsule by mouth 2 times daily., Disp: 60 capsule, Rfl: 0 ESTRACE VAGINAL 0.1 MG/GM cream, See Instructions, 42.5 gm, Refill(s) 3, apply pea size amount to urethra/inner vagina 3x/week x 1 month, then 2x/week for maintainence, [facility]/pharmacy #[id number], 165, cm, 02/11/23 10:41:00 EDT, Height/Length Dosing, 77.5, kg, 02/11/23 10:41:00 EDT, Weight Dosing, Disp: , Rfl: Flecainide 50 MG tablet, Take 1 tablet by mouth Twice daily., Disp: , Rfl: hydroCHLOROthiazide 25 MG tablet, Take 1 tablet by mouth daily., Disp: , Rfl: Lisinopril 20 MG tablet, Take 1 tablet by mouth daily., Disp: , Rfl: Multiple Vitamin (multivitamin) capsule, Take 1 capsule by mouth daily., Disp: , Rfl: NON-FORMULARY, Med Name:Neuveria vitamin 1 qd, Disp: , Rfl: OMEPRAZOLE PO, Take 20 mg by mouth daily. am, Disp: , Rfl: oxyCODONE 5 MG tablet, Take 1-2 tabs po q 4-6 hours prn pain. Wean as tolerated., Disp: 30 tablet, Rfl: 0 potassium chloride 10 MEQ Tab CR tablet ER, Take 1 tablet by mouth daily., Disp: , Rfl: SUMAtriptan 25 MG tablet, as needed., Disp: , Rfl: temazepam 15 MG capsule, Take 2 capsules by mouth At bedtime as needed for Sleep., Disp: , Rfl: TROSPIUM CHLORIDE PO, Take 20 mg by mouth 2 times daily (take before meals)., Disp: , Rfl: Allergies: She is allergic to *adhesive tape, hydrocodone-acetaminophen, levofloxacin, cephalexin, latex, morphine, oxycodone, penicillins, and tramadol. documented in this encounter [facility] 09-17-2023 Telephone encounter Note Order faxed to Torey Julio Pt aware. Matt Adams RN [facility] 09-17-2023 Miscellaneous Notes Order faxed to Torey Julio Pt aware. Matt Adams RN Pt called to request yearly Mammogram order I have pended order as previously completed Pt requests to fax to Nori Lema [phone] [facility]/: please review and sign if agreeable Matt Adams RN documented in this encounter [facility] 09-17-2023 Telephone encounter Note Pt called to request yearly Mammogram order I have pended order as previously completed Pt requests to fax to Nori Lema [phone] [facility]/HM: please review and sign if agreeable Matt Adams RN [facility] 08-20-2023 History of Presen t illness Narrative [...] she is interested in Physcial Therapy through [facility]. Date: 08/20/2023 2:38 PM Patient: Bettie Burns MR#: [id number] : 1945 Age: 78 y.o. Referring Physician: [...] LUMPECTOMY FOOT SURGERY HEART CATHETERIZATION no stents MN ENDOMETRIAL CRYOABLATION REMOVAL BILIARY DUCT/GALLBLADDER CALCULI/DEBRIS PERCUTANEOUS [...] x 1 month, then 2x/week for maintainence, [facility]/pharmacy #[id number], 165, cm, 02/11/23 10:41:00 [...] arise. All pertinant portions of the clinical patient support specialist documentation was reviewed and I agree with [...] she is interested in Physcial Therapy through [facility]. Date: 08/20/2023 2:38 PM Patient: Bettie Burns MR#: [id number] : 1945 Age: 78 y.o. Referring Physician: [...] LUMPECTOMY FOOT SURGERY HEART CATHETERIZATION no stents MN ENDOMETRIAL CRYOABLATION REMOVAL BILIARY DUCT/GALLBLADDER CALCULI/DEBRIS PERCUTANEOUS [...] x 1 month, then 2x/week for maintainence, [facility]/pharmacy #[id number], 165, cm, 02/11/23 10:41:00 [...] penicillins, and tramadol. documented in this encounter [facility] 07-23-2023 History of Presen t illness Narrative [...] 07/23/2023 2:45 PM Patient: Bettie Burns MR#: [id number] : 1945 Age: 78 y.o. Referring Physician: [...] LUMPECTOMY FOOT SURGERY HEART CATHETERIZATION no stents MN ENDOMETRIAL CRYOABLATION REMOVAL BILIARY DUCT/GALLBLADDER CALCULI/DEBRIS PERCUTANEOUS [...] x 1 month, then 2x/week for maintainence, [facility]/pharmacy #[id number], 165, cm, 02/11/23 10:41:00 [...] no erythema, drainage or evidence of dehiscence. Myriam intact. Calves are soft and nontender with [...] arthrex anchors -Incision was cleansed with Betadine. Healy were removed without issue, steri strip placed. [...] visit. All pertinant portions of the clinical patient support specialist documentation was reviewed. Divine Mahmood I have reviewed the findings of the clinical patient support specialist and agree with their assessment. Divine Mahmood [...] 07/23/2023 2:45 PM Patient: Bettie Burns MR#: [id number] : 1945 Age: 78 y.o. Referring Physician: [...] LUMPECTOMY FOOT SURGERY HEART CATHETERIZATION no stents MN ENDOMETRIAL CRYOABLATION REMOVAL BILIARY DUCT/GALLBLADDER CALCULI/DEBRIS PERCUTANEOUS [...] x 1 month, then 2x/week for maintainence, [facility]/pharmacy #[id number], 165, cm, 02/11/23 10:41:00 EDT, Height/Length Dosing, [...] penicillins, and tramadol. documented in this encounter [facility] 07-17-2023 Miscellaneous Notes Dose confirmed with patient documented in this encounter [facility] 07-17-2023 Telephone encounter Note Dose confirmed with patient [facility] 07-15-2023 Miscellaneous Notes Pt called states had [...] was willing. slm documented in this encounter [facility] 07-15-2023 Telephone encounter Note Pt called states [...] the ER and [facility] AVS given to patient. [...] 07, 2023 ATTENDING PHYSICIAN: Miko Ohara M.D. 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 PROCEDURE PERFORMED: Unlisted procedure of right hip and pelvis, dual-row suture anchor repair of 100% massive abductor tear of right hip, work equivalent similar to CPT 11799 Periarticular injection of right hip. ANESTHESIA: General. [...] it as a CPT similar to that, 19361. ATTENDING/ASSISTING PARTICIPATION: This operation could not have been safely performed (without compromising the technical results or length of the procedure) without the assistance of a skilled accounting assistant. A accounting assistant was medically necessary for positioning, retraction and [...] OPERATIVE/PROCEDURE NOTE Bettie Burns 77 y.o. female [id number] SURGEON Surgeons and Role: * Miko Ohara MD - Primary TAMPING MACHINE OPERATOR ROAD FORMS MEDINA Richardson ANESTHESIOLOGIST SNELLER HAND: Chance Ngo CRNA; PALAK Barrett SURGICAL STAFF Event Staff: Kisha Karimi RN; Whit Govea RN Nurse Practitioner: MEDINA Richardson Scrub Person: Chi Goldberg RN; Naomi Maier, [...] Implant Name Type Inv. Item Serial No. Shellfish Checker Lot No. LRB No. Used Action ANCHORS, 5.5 NON PUNCHING - [id number] ANCHORS, 5.5 NON PUNCHING HIST ARTHREX [id number] Right 1 Implanted ANCHORS, 5.5 NON PUNCHING - [id number] ANCHORS, 5.5 NON PUNCHING HIST ARTHREX [id number] Right 3 Implanted SPECIMENS ID Type Source [...] CULTURE Miko Ohara MD 07/07/2023 1434 Paula Fitzpatrick, ASSURANCE SERVICES MANAGER HEALTH CARE-RESOURCE CONSERVATION SPECIALIST July 07, 2023 3:28 PM Unable to doppler right dorsalis pedis pulse. documented in this encounter [facility] 2023 Nurse Note AVS given to patient. [...] patient discharged home with daughter and . [facility] 2023 Hospital Discharg e instructions Carmen Sebastian [...] at all times - Use a leg paper machine tender to get in and out of bed [...] how your recovery is progressing at home. Carmen Sebastian RN - 2023 12:04 PM EST Ambulate with wheeled walker until follow up appointment or directed by Dr. Ohara. Toe touch weight bearing to right lower extremity. Abductor pillow to be in place when in bed or sleeping. STINE Sebastian RN - 2023 12:01 PM EST Contact Office ([phone]) if: > Any falls or injuries > [...] or operative leg. documented in this encounter [facility] 2023 History of Presen t illness Narrative [...] LUMPECTOMY FOOT SURGERY HEART CATHETERIZATION no stents MN ENDOMETRIAL CRYOABLATION REMOVAL BILIARY DUCT/GALLBLADDER CALCULI/DEBRIS PERCUTANEOUS [...] 0 Equipment Available wheeled walker;elevated toilet seat;shower chair;dictaphone technician Cognitive Status Examination Orientation Status (Cognition) oriented [...] Supine to Sit, Rehab Eval Level of Fabius: Supine/Sit stand-by assist Physical Assist/Nonphysical Assist: Supine/Sit 1 person assist Transfer Skill: Sit to Stand, Rehab Eval Level of Fabius: Sit/Stand contact guard Physical Assist/Nonphysical Assist: Sit/Stand 1 person assist Weight-Bearing Restrictions: Sit/Stand toe touch weight-bearing Assistive Device for Transfer: Sit/Stand wheeled walker Upper Body Dressing Level of Fabius independent Physical Assist/Nonphysical Assist set-up required Lower Body Dressing Level of Fabius maximum assist (25% patients effort) Physical Assist/Nonphysical Assist 1 person assist Assistive Device dictaphone technician General Therapy Interventions Planned Therapy Interventions (OT Eval) ADL retraining;balance training;transfer training Clinical Impression Co-evaluation/co-treatment performed? Yes, combination of simultaneous billable and individual billable skilled care was necessary due to medical complexity and functional deficits Patient Instruction/Education comments Pt instructed on LB dressing techniques donning underwear and shorts min assist in sitting and standing with training on use of dictaphone technician to maintain hip precautions Rehab Potential (OT [...] hygiene training Therapist Information License # [id number] 1. Pt will complete LB dressing SBA 2. Pt will complete sponge bathing min assist 3. Pt will complete toileting MOD I 4. Pt will complete hygiene/grooming standing at sink MOD I 5. Pt will complete walk in shower transfer [facility] 07/07/23 1753 Time In/Out Time In 1752 Time Out 1821 Total Visit Time 29 minutes PT Therapy [...] LUMPECTOMY FOOT SURGERY HEART CATHETERIZATION no stents MN ENDOMETRIAL CRYOABLATION REMOVAL BILIARY DUCT/GALLBLADDER CALCULI/DEBRIS PERCUTANEOUS [...] Supine to Sit, Rehab Eval Level of Fabius: Supine/Sit stand-by assist Physical Assist/Nonphysical Assist: Supine/Sit 1 person assist Transfer Skill: Sit To Stand, Rehab Eval Fabius (Sit-Stand Transfers) contact guard Physical Assist/Nonphysical Assist: Sit/Stand 1 person assist Weight-Bearing Restrictions: Sit/Stand toe touch weight-bearing Assistive Device For Transfer: Sit/Stand 2 wheeled walker Gait Skills, PT Eval Level of Fabius: Gait contact guard Physical Assist/Nonphysical Assist: Gait [...] educated on hip precautions, use of leg paper machine tender and weight bearing status. Pt educated to [...] DISCUSSED WITH DR OHARA. documented in this encounter [facility] 2023 Hospital course Narrative Images from [...] x 1 month, then 2x/week for maintainence, [facility]/pharmacy #[id number], 165, cm, 02/11/23 10:41:00 [...] Dept Phone 07/23/2023 2:30 PM Divine Mahmood [facility] Orthopedics [phone] documented in this encounter [facility] 2023 Surgery Postoperative evaluation and management note DATE OF PROCEDURE: July 07, 2023 ATTENDING PHYSICIAN: Miko Ohara M.D. 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 PROCEDURE PERFORMED: Unlisted procedure of right hip and pelvis, dual-row suture anchor repair of 100% massive abductor tear of right hip, work equivalent similar to CPT 18379 Periarticular injection of right hip. ANESTHESIA: General. [...] it as a CPT similar to that, 84194. ATTENDING/ASSISTING PARTICIPATION: This operation could not have been safely performed (without compromising the technical results or length of the procedure) without the assistance of a skilled accounting assistant. A accounting assistant was medically necessary for positioning, retraction and instrumentation. [facility] 2023 Nurse Note Assessment remains unchanged from previous. Neuro checks WN, abductor pillow in place. Call light within reach. [facility] 2023 Nurse Note Assessment remains unchanged from previous. Neuro checks WNL, abductor pillow in place. Denies futher needs, call light within reach. [facility] 07-07-2023 Consult note Associated Order (s): IP CONSULT TO GENERAL MEDICINE Medical consultation Patient is a 77 year old female who presents for revision total hip arthroplasty. She was at her baseline state of health prior to surgery and was medically optimized by her primary care provider and application development director. Testing notable for a blood sugar of [...] LUMPECTOMY FOOT SURGERY HEART CATHETERIZATION no stents MN ENDOMETRIAL CRYOABLATION REMOVAL BILIARY DUCT/GALLBLADDER CALCULI/DEBRIS PERCUTANEOUS [...] metabolic panel in the morning GI prophylaxis. [facility] 07-07-2023 Consult note Associated Order (s): IP CONSULT TO GENERAL MEDICINE Medical consultation Patient is a 77 year old female who presents for revision total hip arthroplasty. She was at her baseline state of health prior to surgery and was medically optimized by her primary care provider and application development director. Testing notable for a blood sugar of [...] LUMPECTOMY FOOT SURGERY HEART CATHETERIZATION no stents MN ENDOMETRIAL CRYOABLATION REMOVAL BILIARY DUCT/GALLBLADDER CALCULI/DEBRIS PERCUTANEOUS [...] morning GI prophylaxis. documented in this encounter [facility] 07-07-2023 Nurse Note Arrived to room 3761 from PACU. Bedside report received from RICARDO Jacobo. Oriented to room and provided call light. Admission assessment, head to toe and post op vitals initiated. Fresh ice water and crackers provided. Family members accompanying patient, denies additional needs, call light in reach. FAITH intact flashing green. [facility] 07-07-2023 Nurse Note Patient transferred to [facility] via cart in stable condition. Report given [...] score of: 2 documented in this encounter [facility] 07-07-2023 Nurse Surgical operation note Patient transferred to [facility] via cart in stable condition. Report given to RICARDO Kim. Cart left in locked and lowest position with side rails up x2. Snack and call light given to patient. Monitors and alarms on and attached to patient. [facility] 07-07-2023 Nurse Surgical operation note Patient transported to PACU with Damián SNELLER HAND. Reports given to Sara SILVA at 1530H. [facility] 07-07-2023 Surgery Postoperative evaluation and management note POST OPERATIVE/PROCEDURE NOTE Bettie Grant 77 y.o. female [id number] SURGEON Surgeons and Role: * Miko Ohara MD - Primary TAMPING MACHINE OPERATOR ROAD FORMS MEDINA Richardson ANESTHESIOLOGIST SNELLER HAND: Chance Ngo CRNA; PALAK Barrett SURGICAL STAFF Event Staff: Kisha Karimi, RICARDO; Whit Govea, RN Nurse Practitioner: MEDINA Richardson Scrub Person: Chi Goldberg, RICARDO; Naomi Maier, RICARDO; Daryl Duran; Hao Rose [...] Implant Name Type Inv. Item Serial No. Shellfish Checker Lot No. LRB No. Used Action ANCHORS, 5.5 NON PUNCHING - [id number] ANCHORS, 5.5 NON PUNCHING HIST ARTHREX [id number] Right 1 Implanted ANCHORS, 5.5 NON PUNCHING - [id number] ANCHORS, 5.5 NON PUNCHING HIST ARTHREX [id number] Right 3 Implanted SPECIMENS ID Type Source Tests Collected by Time Destination A : Right hip incisional fluid (1-2) (Anaerobic & Aerobic) Fluid/Swab - Other SURGICAL WOUND ANAEROBE CULTURE Miko Ohara MD 07/07/2023 1270 B : Right hip fluid (cell count, defferential, & culture) Fluid, Unspecified FLUID, UNSPECIFIED BODY FLUID CELL COUNT Miko Ohara MD 07/07/2023 1427 C : Right hip suture (1-3) (Anaerobic & Aerobic) Surgical Wound SURGICAL WOUND FUNGUS CULTURE, ACID FAST CULTURE, ANAEROBE CULTURE Miko Ohara MD 07/07/2023 1434 MEDINA Richardson July 07, 2023 3:28 PM [facility] 07-07-2023 Nurse Surgical operation note OR 3 room temp: 65.1F Humidity: 44% Fire score of: 2 [facility] 07-07-2023 Nurse Note Unable to doppler right dorsalis pedis pulse. [facility] 06-19-2023 Miscellaneous Notes Surgeon: Dr Miko Ohara [...] Dr Ohara office. documented in this encounter [facility] 06-19-2023 Telephone encounter Note Surgeon: Dr Miko [...] on risk, holding Eliquis and Celebrex question. [facility] 06-19-2023 Telephone encounter Note Okay to proceed with surgery at moderate risk Can use Celebrex Hold Eliquis for 2 days resume after surgery [facility] Work Phone: 06-19-2023 Telephone encounter Note Clearance note faxed back to Dr Ohara office. [facility] 06-18-2023 History of Presen t illness Narrative [...] year ago with Dr. Denver Hughes in [place]. Pt states she is looking for a second opinion due to having issues from this past surgery. Date: 06/18/2023 2:32 PM Patient: Bettie Burns MR#: [id number] : 1945 Age: 77 y.o. Referring Physician: [...] APPENDECTOMY BREAST LUMPECTOMY FOOT SURGERY HEART CATHETERIZATION MN ENDOMETRIAL CRYOABLATION REMOVAL BILIARY DUCT/GALLBLADDER CALCULI/DEBRIS PERCUTANEOUS [...] tendons as discussed in detail above. 3. [id number] amount of fluid along the lateral aspect [...] nasal MRSA screening, scheduling an appointment for [facility] and the potential surgical date, and reviewing [...] APPENDECTOMY BREAST LUMPECTOMY FOOT SURGERY HEART CATHETERIZATION MN ENDOMETRIAL CRYOABLATION REMOVAL BILIARY DUCT/GALLBLADDER CALCULI/DEBRIS PERCUTANEOUS W/ IMAGE REMOVAL CATARACT (PEM) ROTATOR CUFF REPAIR History reviewed. No pertinent family history. Social History Socioeconomic History Marital status: Tobacco Use Smoking status: Never Smokeless tobacco: Never Social Determinants of Health Food Insecurity: No Food Insecurity (06/02/2023) Received from [facility] Hunger Screening Within the past 12 months [...] Oxycodone Penicillins Tramadol documented in this encounter [facility] 06-02-2023 History of Presen t illness Narrative Bettie Burns Date of visit: [...] issues. Past Medical History: Diagnosis Date [place] hx of Arrhythmia 12/2016 ATRIAL FIBRILLATION Arthritis Breast cancer [place] 11/14/2015 LEFT COVID-19 03/2020 History of bleeding ulcers Hypertension Migraines Pneumonia d/t covid Prolonged emergence from general anesthesia Visual impairment glasses No data recorded No data recorded No data recorded Past Surgical History: Procedure Laterality Date ABLATION OF DYSRHYTHMIC FOCUS Right nerve ablation, L4 and L5 Afib ablation with SHANICE - CRYO, Rhythmia, ICE N/A 09/28/2018 Performed by Amber Quiñonez MD at [facility] (EP) ARTHROSCOPY REPAIR ROTATOR CUFF SHOULDER Right 05/16/2020 Performed by Melchor Rivera DO at [facility] ARTHROSCOPY SHOULDER Right 05/16/2020 Performed by Melchor Rivera DO at [facility] BREAST BIOPSY Left 2016 BREAST LUMPECTOMY Left 11/14/2015 WITH RADIATION BREAST SURGERY Left 2013 lumpectomy CATARACT EXTRACTION CHOLECYSTECTOMY COLONOSCOPY Coronary angiogram and left ventricular gram/pressure N/A 08/08/2021 Performed by Bertram Lal MD at [facility] EYE SURGERY lids lifted [...] STARKS MD Referring Physician: Elliot Starks MD [address] [place] [phone] documented in this encounter [facility] 05-14-2023 History of Presen t illness Narrative Ortho Nurse - Patient Intake Room#: 1 --- HEALTH SYSTEMS ANALYST R Hip pain, had R THR in [...] 05/14/2023 9:44 AM Patient: Bettie Burns MR#: [id number] : 1945 Age: 77 y.o. Referring Physician: Self, Self Insurance: Payor: MEDICARE AETWhereoscope HMO OR PPO / Plan: MEDICARE AETNA [...] [x]cane, []bracing Are you followed by a application development director? [x] [] Name: Dr. Waleska Zhu - [facility] Are you followed by pain management? [x] [] Name: Dr. Cedeno - Pain Mgmt @ [facility] Are you followed by any other specialists? [x] [] Name: Oncolgist - Dr. Choi [facility] Urologist - Dr. Christian Bourne Outpatient [...] abductor muscles as well as ESR/CRP and Dupont and Chromium labs today. I will see [...] APPENDECTOMY BREAST LUMPECTOMY FOOT SURGERY HEART CATHETERIZATION MN ENDOMETRIAL CRYOABLATION REMOVAL BILIARY DUCT/GALLBLADDER CALCULI/DEBRIS PERCUTANEOUS [...] Oxycodone Penicillins Tramadol documented in this encounter [facility] 03-30-2023 Evaluation note Encounter Date Diagnosis [...] verbalizes understanding and agrees with tx plan. [facility] Other 10-11-2023 NoteChief Complaint Referral *Frequent UTI [...] states that she was put on a oil heaterman abx which has helped a lot. Pt [...] a hematuria workup including a scope, at [facility]. Occasional visible blood w/UTI. UA today shows moderate blood. Discussed doing a hematuria workup if the pt would like to. Pt states that she is not worried aboutthis and does not see the need to have t (more content not included)...[facility] HospitalComment on above:Result Comment: Electronically Signed By: Alfreda Miller MD\.br\Date and Time Signed: 02/11/23 12:13EDT\.br\Electronically Co-Signed By: Karlee Ramos\.br\Date and Time Co-Signed: 02/11/23 11:16 [id number] Hospital Discharge instructions Patient Education 02/11/2023 11:16:08 [...] provider. Document Revised: 08/29/2021 Document Reviewed: 08/29/2021 [employer] Patient Education 2022 [email or web address] Follow Up Care 11/06/2022 15:31:52 With:Paul VILLEGAS, PERLA Araujo, URO Address: When:Within 3 Month(s) [facility] 07-17-2023 Evaluation note* Encounter Date Diagnosis Assessment Notes Treatment Notes Treatment Clinical Notes Nov, Dysuria (ICD-10 - R30.0) [facility] Other 06-29-2023 Evaluation note* Encounter Date Diagnosis Assessment Notes Treatment Notes Treatment Clinical Notes Oct, Frequent UTI (ICD-10 - N39.0) Pt requests Urology referral. Discussed also getting CT to move along process. Oct, Dyshidrotic eczema (ICD-10 - L30.1) Will treat with steroid cream prn [facility] Other 06-26-2023 Evaluation note* Encounter Date Diagnosis Assessment Notes Treatment Notes Treatment Clinical Notes Oct, Dysuria (ICD-10 - R30.0) [place] [employer] Other 05-11-2023 Miscellaneous Notes* Telephone Encounter - Matt Adams RN - 09/11/2022 11:43 AM EDT [facility] Matt Adams RN * Telephone Encounter - Matt Adams RN - 09/11/2022 9:51 AM EDT Pt called to request yearly Mammogram order I have pended order as previously completed Pt requests to fax to Nori Lema [phone] BRM/HM: please review and sign if agreeable Matt Adams RN [facility]* Encounter Date Diagnosis Assessment Notes Treatment Notes Treatment Clinical Notes Aug, Dysuria (ICD-10 - R30.0) [facility] Other 03-16-2023 Evaluation note* Encounter Date Diagnosis [...] N32.81) chronic and improved on present med [facility] Other 02-20-2023 Evaluation note* Encounter Date Diagnosis Assessment Notes Treatment Notes Treatment Clinical Notes Jun, Dysuria (ICD-10 - R30.0) [facility] Other 02-03-2023 Evaluation note* Encounter Date Diagnosis Assessment Notes Treatment Notes Treatment Clinical Notes Jun, OAB (overactive bladder) (ICD-10 - N32.81) [facility] Other 02-01-2023 Evaluation note* Encounter Date Diagnosis Assessment Notes Treatment Notes Treatment Clinical Notes Jun, OAB (overactive bladder) (ICD-10 - N32.81) Patient request to try new medication reviewed side effect profile. Patient declines urology or VIDEO TAPE EDITOR referral at this time. Jun, Essential hypertension (ICD-10 - I10) reviewed and updated medications she will follow-up with cardiology in Jun, Hypokalemia (ICD-10 - E87.6) Reviewed and updated medications. Discussed foods that are high in potassium Jun, Right lumbar pain (ICD-10 - M54.50) Follow-up with Dr. Rivera as scheduled in June. She does have limping with her gait. [facility] Other 05-26-2022 Miscellaneous Notes* Telephone Encounter - Andrew Choi MD - 09/26/2021 5:13 PM EDT Okay to change to screening mammogram. Order signed. ASIYA Ford * Telephone Encounter - Mikaela Thompson RN - 09/26/2021 2:33 PM EDT Pt scheduled for diagnostic mamm tomorrow @ [facility]. Hospital calls to ask if this could be changed to a screening mammogram since the pt is greater than 2 years from diagnosis? Mikaela Thompson RN [facility] Future Appointments Appointment Date:05/27/2023 08:45:00 AM Scheduled Provider:Alfreda Miller MD Location:[facility] Appointment Type:URO Office Visit [facility] evaluation note* Diagnosis Encounter for screening mammogram for malignant neoplasm of breast- Primary Other screening mammogram documented in this encounter [facility] note* Diagnosis Malignant neoplasm of upper-outer quadrant of left breast in female, estrogen receptor positive (HCC)- Primary documented in this encounter [facility] noteNo InformationNort [employer] Other Evaluation note* Diagnosis Encounter for screening mammogram for malignant neoplasm of breast- Primary Other screening mammogram documented in this encounter [facility] noteNo assessment information availableSamaritan [facility] Work Phone: Evaluation note* Diagnosis Pain in prosthetic joint, initial encounter- Primary Primary osteoarthritis of right hip Primary localized osteoarthrosis, pelvic region and thigh [facility] Diagnosis Paroxysmal atrial fibrillation (CMS-HCC)- Primary Atrial fibrillation Primary hypertension Unspecified essential hypertension Chronic coronary artery disease Coronary atherosclerosis of unspecified type of vessel, [place]shoshone or graft [facility] Diagnosis Right hip pain- Primary Pain in joint, pelvic region and thigh Pre-op testing- Primary Preoperative examination, unspecified Essential (primary) hypertension Unspecified essential hypertension Abnormal finding of blood chemistry, unspecified Abnormal coagulation profile Tear of rotator cuff of right hip, initial encounter 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, initial encounter [facility] Diagnosis Status post revision of total hip- Primary Hip joint replacement by other means Pre-op testing Preoperative examination, unspecified Tear of rotator cuff of right hip, initial encounter 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, initial encounter Acute postoperative pain of right hip [facility] Tear of gluteus minimus tendon, right, initial encounter- Primary [facility] Diagnosis Right hip pain- Primary Pain in joint, pelvic region and thigh [facility] Diagnosis Onset Date Resolution Status Dysuria noneactive [facility] Work Phone: Evaluation note* Diagnosis Hx of total hip arthroplasty, right- Primary [facility] encounter [facility] N[facility]ative - Reported* Type Description [...] replacement 12/16/2021 Hospitalization History SEE SURGICAL HX [facility] Other Hospital course Narrative No data available for this section [facility] Hospital Discharge instructions* Attachments The following attachments cannot be sent through Care Everywhere. * [facility] AMB SMOKING CESSATION LINKS documented in this encounterAvita Health SystemInstructionsNot on filedocumented in this encounterProMedica Health SystemInstructionsNot on filedocumented in this encounterProMedica Health SystemInstructionsNot on filedocumented in this encounterProMedica Health SystemProgress note No data available for this section [facility] reason for referral (narrative)* Diagnostic Procedure Only (Routine) - Pending Review Specialty Diagnoses / Procedures Referred By Juan wren Referred To Contact [facility] Diagnoses Encounter for screening mammogram for malignant neoplasm of breast Procedures SHANE SCREENING W YAW SCREENING DIGITAL BREAST TOMOSYNTHESIS BI SCREENING MAMMOGRAPHY BI 2-VIEW BREAST INC Andrew Miguel MD [address] [place] [address] [place] [address] [address] [place] [address] Referral ID Status Reason Start Date Expiration Date Visits Requested Visits Authorized [id number] Pending Review Auto-Generat ed Referral 09/26/2021 10/26/2022 1 1 [facility] for referral (narrative)* Diagnostic Procedure Only (Routine) - Pending Review Specialty Diagnoses / Procedures Referred By Juan wren Referred To Contact [facility] Diagnoses Encounter for screening mammogram for malignant neoplasm of breast Procedures SHANE SCREENING W YAW SCREENING DIGITAL BREAST TOMOSYNTHESIS BI SCREENING MAMMOGRAPHY BI 2-VIEW BREAST INC Andrew Miguel MD [address] [place] [address] [place] [address] [facility] [address] [place] [address] Referral ID Status Reason Start Date Expiration Date Visits Requested Visits Authorized [id number] Pending Review Auto-Generat ed Referral 09/11/2022 10/11/2023 1 1 [facility] for referral (narrative)* (Routine) Specialty Diagnoses / Procedures Referred By Contac t Referred To Contact [facility] [address] [place] [address] Referral ID Status Reason Start Date Expiration Date Visits Re quested Visits Authorized [facility] for referral (narrative)* Consultation (Routine) - Patient to Arrange Specialty Diagnoses / Procedures Referred By Contac t Referred To Contact Physical Therapy Diagnoses Right hip pain Etiennenery Divine M [address] [place] [address] Referral ID Status Reason Start Date Expiration Date V isits Requested Visits Authorized [id number] Patient to Arrange 08/20/2023 09/13/2024 1 1 Scheduling Instructions . * Diagnostic X-Ray (Routine) - New Request Specialty Diagnoses / Procedures Referred By Contac t Referred To Contact Diagnoses Right hip pain Procedures XR HIP WITH PELVIS RIGHT Divine Mahmood [address] [place] [address] Referral ID Status Reason Start Date Expiration Date V isits Requested Visits Authorized [id number] New Request 08/20/2023 09/13/2024 1 1 [facility] for referral (narrative)* Diagnostic Procedure Only (Routine) - Pending Review Specialty Diagnoses / Procedures Referred By Contac t Referred To Contact [facility] Diagnoses Encounter for screening mammogram for malignant neoplasm of breast Procedures SHANE SCREENING W YAW SCREENING DIGITAL BREAST TOMOSYNTHESIS BI SCREENING MAMMOGRAPHY BI 2-VIEW BREAST INC Andrew Miguel MD [address] [place] [address] [place] [address] [facility] [address] [facility] [place] [address] Referral ID Status Reason Start Date Expiration Date Visits Requested Visits Authorized [id number] Pending Review Auto-Generat ed Referral 09/17/2023 10/16/2024 1 1 [facility] Summary Purpose Family History Relationship Condition Age at Onset Recorded Date/T nilam father Unknown mother Unknown Advance Directives Documents on File Type Date Recorded Patient Money Manager Expl anation Living Will 05/21/2020 9:37 AM Durable Power of Drywall Boardhanger 05/21/2020 9:27 AM Durable Power of Drywall Boardhanger 05/16/2020 6:05 AM Living Will 05/16/2020 6:04 AM Documents on File Type Date Recorded Patient Money Manager Expl anation Advance Directives/Living Will 06/25/2023 9:17 AM DURABLE POWER OF PHOSPHORUS PROCESSING SUPERVISOR FOR HEALTHCARE 06/25/23 Advance Directives/Living Will 06/25/2023 9:13 AM LIVING WILL 06/25/23 Latest Code Status on File Code Status Date Activated Date Inactivated Comments Full Code 07/07/2023 3:27 PM Advance Directive Response Recorded Date/ Time Advance Directives No November 17 6:19pm Date Activated Date Inactivated Comments 07/07/2023 3:27 PM Reason for Referral Specialty Diagnoses / Procedures Referred By Juan t Referred To Contact Diagnoses Hx of total hip arthroplasty, right Procedures XR HIP WITH PELVIS RIGHT Miko Ohara MD [address] [place] [address] Referral ID Status Reason Start Date Expiration Date V isits Requested Visits Authorized [id number] New Request 11/16/2023 12/10/2024 1 1 Specialty Diagnoses / Procedures Referred By Russac t Referred To Contact Diagnoses Tear of gluteus minimus tendon, right, initial encounter Procedures XR HIP WITH PELVIS RIGHT Divine Mahmood [address] [place] [address] Referral ID Status Reason Start Date Expiration Date V isits Requested Visits Authorized [id number] New Request 07/20/2023 08/13/2024 1 1 Specialty Diagnoses / Procedures Referred By Contac t Referred To Contact Diagnoses Pain in prosthetic joint, initial encounter Procedures MRI HIP RIGHT WITHOUT CONTRAST MN MRI LOWER EXTREM JT, W/O CONTRAST Miko Ohara MD [address] [place] [address] Referral ID Status Reason Start Date Expiration Date V isits Requested Visits Authorized [id number] New Request 05/14/2023 06/07/2024 1 1 Specialty Diagnoses / Procedures Referred By Contac t Referred To Contact Diagnoses Pain in prosthetic joint, initial encounter Procedures COBALT AND CHROMIUM,WB Miko Ohara MD [address] [place] [address] Referral ID Status Reason Start Date Expiration Date V isits Requested Visits Authorized [id number] New Request 05/14/2023 06/07/2024 1 1 Specialty Diagnoses / Procedures Referred By Contac t Referred To Contact Diagnoses Primary osteoarthritis of right hip Procedures XR HIP WITH PELVIS RIGHT Miko Ohara MD [address] [place] [address] Referral ID Status Reason Start Date Expiration Date V isits Requested Visits Authorized [id number] New Request 05/06/2023 05/30/2024 1 1 Reason *FU 11/12 Jason office Diagnosis 1 Frequent UTI (N39.0) Referral Organization [facility] tam Referring Provider First Name Elliot Referring Provider Last Name Raudel Referring Provider Specialty Family [facility] Referred Organization [facility] Referred Provider ALFREDA MILLER Referred Address [address] [address] [place], [place],[address] Referred Provider Specialty Urology Referral Priority Routine [...] and content) DATE CREATED AUTHOR 10/28/2017 [facility] DATE CREATED AUTHOR AUTHOR'S ORGANIZ ATION 03/21/2020 [facility] DATE CREATED AUTHOR AUTHOR'S ORGANIZ ATION 09/13/2021 [facility] dical Specialist DATE CREATED AUTHOR AUTHOR'S ORGANIZ ATION 06/11/2022 [facility] DATE CREATED AUTHOR AUTHOR'S ORGANIZ ATION 11/18/2022 [facility] DATE CREATED AUTHOR AUTHOR'S ORGANIZ ATION 05/20/2023 [facility] DATE CREATED AUTHOR AUTHOR'S ORGANIZ ATION 06/06/2023 [facility] DATE CREATED AUTHOR AUTHOR'S ORGANIZ ATION 07/10/2023 [facility] DATE CREATED AUTHOR AUTHOR'S ORGANIZ ATION 09/19/2023 [facility] DATE CREATED AUTHOR AUTHOR'S ORGANIZ ATION 10/01/2023 [facility] DATE CREATED AUTHOR AUTHOR'S ORGANIZ ATION 10/17/2023 [facility] Source Comments (unrecognize d section and content) In the event this informatio n is protected by the Federal Confidentiality of Alcohol and Drug Abuse Patient Records regulations: The Federal rules restrict any use of the information to criminally investigate or prosecute any alcohol or drug abuse patient.[facility] HospitalIn the event this information is protected by the Federal Confidentiality of Alcohol and Drug Abuse Patient Records regulations: The Federal rules restrict any use of the information to criminally investigate or prosecute any alcohol or drug abuse patient.[facility] HospitalIn the event this information is protected by the Federal Confidentiality of Alcohol and Drug Abuse Patient Records regulations: The Federal rules restrict any use of the information to criminally investigate or prosecute any alcohol or drug abuse patient.[facility] HospitalIn the event this information is protected by the Federal Confidentiality of Alcohol and Drug Abuse Patient Records regulations: The Federal rules restrict any use of the information to criminally investigate or prosecute any alcohol or drug abuse patient.[facility] Reason for Visit (unrecogniz ed section and content) Reason Comments Radiology Mammogram Reason Comments Lab Orders Reason Comments Orders Specialty Diagnoses / Procedures Referred By Juan wren Referred To Contact Diagnoses Primary osteoarthritis of right hip Procedures XR HIP WITH PELVIS RIGHT Miko Ohara MD [address] [place] [address] Referral ID Status Reason Start Date Expiration Date V isits Requested Visits Authorized [id number] New Request 05/06/2023 05/30/2024 1 1 Reason Comments Pain Reason Comments Follow-up est pt concerns of a fib per smart watch wants seen sooner. sched w/pt pt will arrive at 11:30 Reason Onset Date Comments Pre op clearance 06/19/2023 Reason Comments MRI Results Specialty Diagnoses / Procedures Referred By Juan wren Referred To Contact Diagnoses Tear of rotator cuff of right hip, initial encounter 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, initial encounter Tear of rotator cuff of right hip, initial encounter [S76.011A] 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, initial encounter [T84.090A] Procedures MN PELVIS/HIP JOINT SURGERY UNLISTED MN REVISE TOTAL HIP REPLACEMENT GLUTEUS MEDIUS TENDON REPAIR REVISION ARTHROPLASTY HIP BOTH ACETABULAR & FEMORAL COMPONENTS Miko Ohara MD [address] [place] [address] Referral ID Status Reason Start Date Expiration Date Visits Re quested Visits Authorized [id number] 06/19/2023 1 1 Reason Comments Post Op Visit Specialty Diagnoses / Procedures Referred By Contac t Referred To Contact Diagnoses Tear of gluteus minimus tendon, right, initial encounter Procedures XR HIP WITH PELVIS RIGHT Divine Mahmood [address] [place] [address] Referral ID Status Reason Start Date Expiration Date V isits Requested Visits Authorized [id number] New Request 07/20/2023 08/13/2024 1 1 Reason Comments Med Refill Reason Comments Follow-up Specialty Diagnoses / Procedures Referred By Contac t Referred To Contact Diagnoses Right hip pain Procedures XR HIP WITH PELVIS RIGHT Divine Mahmood [address] [place] [address] Referral ID Status Reason Start Date Expiration Date V isits Requested Visits Authorized [id number] New Request 08/20/2023 09/13/2024 1 1 Reason Comments Yearly Exam With Mammogram Reason Comments Pain Specialty Diagnoses / Procedures Referred By Contac t Referred To Contact Diagnoses Hx of total hip arthroplasty, right Procedures XR HIP WITH PELVIS RIGHT Miko Ohara MD [address] [place] [address] Referral ID Status Reason Start Date Expiration Date V isits Requested Visits Authorized [id number] New Request 11/16/2023 12/10/2024 1 1 Care Teams (unrecognized sec tion and content) Automatic Corn Grinder Operator Relationship Specialty Start Date End Date Elliot Starks MD [address] [place] [address] PCP - General Family Practice 11/26/15 Automatic Corn Grinder Operator Relationship Specialty Start Date End Date Elliot Starks MD [address] [place] [address] PCP - General Family Practice 11/26/15 Automatic Corn Grinder Operator Relationship Specialty Start Date End Date Elliot Starks MD [address] [place] [address] PCP - General Family Medicine 11/26/15 Team Status: Inactive Member Role Status Dates Elliot Starks MD Attending Provider Active Automatic Corn Grinder Operator Relationship Specialty [place] [address] [place] [address] PCP - General Family Medicine 05/11/23 Automatic Corn Grinder Operator Relationship Specialty [place] [address] [place] [address] PCP - General Family Medicine 05/11/23 Automatic Corn Grinder Operator Relationship Specialty Start Date End Date Elliot Starks MD [address] [place] [address] PCP - General 03/17/17 Automatic Corn Grinder Operator Relationship Specialty Start Date End Date Elliot Starks MD [address] [place] [address] PCP - General 03/17/17 Automatic Corn Grinder Operator Relationship Specialty Start Date End Date Elliot Starks MD [address] [place] [address] PCP - General Family Medicine 05/11/23 Automatic Corn Grinder Operator Relationship Specialty [place] [address] [place] [address] PCP - General Family Medicine 05/11/23 Automatic Corn Grinder Operator Relationship Specialty [place] [address] [place] [address] PCP - General 03/17/17 Automatic Corn Grinder Operator Relationship Specialty Start [place] [address] [place] [address] PCP - General Family Medicine 05/11/23 Automatic Corn Grinder Operator Relationship Specialty Start Date End Date Elliot Starks MD [address] [place] [address] PCP - General Family Medicine 05/11/23 Automatic Corn Grinder Operator Relationship Specialty Start Date End Date Elliot Starks MD [address] [place] [address] PCP - General 07/15/23 Automatic Corn Grinder Operator Relationship Specialty Start Date End Date Elliot Starks MD [address] [place] [address] PCP - General Family Medicine 05/11/23 Automatic Corn Grinder Operator Relationship Specialty Start Date End Date Elliot Starks MD [address] [place] [address] PCP - General Family Medicine 05/11/23 Automatic Corn Grinder Operator Relationship Specialty Start Date End Date Elliot Starks MD [address] [place] [phone] PCP - General Family Medicine 11/26/15 Team [...] on Thu07/07/23 at 1845, Until Discontinued, Post-op/Post-Proc 1817 (Given - Provider: Marcella Lozano RN)2348 (Given [...] Post-op/Post-Proc 09 (Given - Provid er: Dolly Liao RN) Atenolol (TENORMIN) tablet 75 mg 75 mg, [...] on Thu07/07/23 at 1700, Until Discontinued, Post-op/Post-Proc 181 (Given - Provider: Marcella Lozano RN) 0904 (Given - Provider: Dolly Liao RN)1700 (Canceled [...] RN)1514 ($$New Bag$$ - Provider: Damián Saenz APRN-SNELLER HAND)1647 (Stopped - Provider: Aidee Field RN) Sodium [...] preop., Pre-op/Pre-Proc 1043 (Given - Provider: Chelsea Bledsoe, RICARDO) bisacodyl (DULCOLAX) suppository 10 mg 10 mg, Rectal, DAILY NEEDED, Starting on Thu07/07/23 at 1637, Until Thu07/08/23 at 1920, constipation, Post-op/Post-Proc ceFAZolin (ANCEF) 2 g in dextrose 100 mL premix IVPB (COMPLETED) 2 g, Intravenous, Administer over 15 Minutes, FREIGHT BROKER TO PROCEDURE, 1 dose, Starting on Thu07/07/23 at 1003, Until Thu07/07/23 at 1409, Other, Pre-operative antibiotic, Pre-op/Pre-Proc 1354 (Given - Provider: Melchor Holcomb APRN-SNELLER HAND) HYDROmorphone (DILAUDID) injection 0.5 mg 0.5 mg, Intravenous, EVERY 4 HOURS NEEDED, Starting on Thu07/07/23 at 1637, Until Thu07/08/23 at 1920, Severe Pain, Post-op/Post-Proc Ondansetron 4mg/2ml (ZOFRAN) injection 4 mg 4 mg, Intravenous, EVERY 4 HOURS NEEDED, Starting on Thu07/07/23 at 1637, Until Thu07/08/23 at 1920, Nausea / Vomiting, Post-op/Post-Proc 0612 (Given - Provid er: Aidee Field RN) oxyCODONE (ROXICODONE) tablet 5-10 mg 5-10 mg, Oral, EVERY 4 HOURS NEEDED, Starting on Thu07/07/23 at 1637, Until Thu07/08/23 at 1920, moderate-severe pain, If pain unrelieved with oxycodone, contact pharmacist to enter order for Oxycodone ER 10mg PO Q12H for 3 days, Post-op/Post-Proc 1646 (Given - Provider: Marcella Lozano RN)2103 (Given - Provider: Aidee Field RN) senna-docusate (SENOKOT-S) 8.6-50 MG per tablet 2 tablet 2 tablet, Oral, 2 TIMES DAILY NEEDED, Starting on Thu07/07/23 at 1637, Until Thu07/08/23 at 1920, constipation, Post-op/Post-Proc Sodium chloride 0.9 % irrigation (CANCELED) NEEDED, Starting on Thu07/07/23 at 1432, Until Thu07/07/23 at 1539, Intra-op/Intra-Proc 1432 (Given - Provider: [...] BE BASED ON THE PRIMARY CLINICAL RECORDS. [facility]. provides no warranty or guarantee of the accuracy or completeness of information in this document.
[2023-12-14 06:48] VITALS: BP 116/71; PULSE 60; TEMP 36.8; O2SAT 98
[2023-12-14] MEDS: BUPIVACAINE HCL 0.25% PF 25 MG/10 ML VIAL 5 ML INJ (07:33)
[2023-12-14] MEDS: IOHEXOL 240 MG/ML - 10 ML VIAL INJ (07:34)
[2023-12-14] MEDS: TRIAMCINOLONE ACETONIDE 40 MG/ML VIAL INJ (07:34)
[2023-12-14] MEDS: LIDOCAINE HCL 2% 400 MG/20 ML MDV 15 ML INJ (07:34)
[2023-12-14 07:36] VITALS: BP 149/64; BP 162/74; PULSE 52; PULSE 56; O2SAT 97; O2SAT 98
--- NOTE | 2023-12-14 07:36 | P.ON_ITS ---
Date of procedure: 12/14/23 Pre-op diagnosis: Right sacroiliitis Post-op diagnosis: same as pre-op Procedure: Procedure: Right sacroiliac joint injection Medications: Bupivacaine 0.25% 3cc, kenalog 40mg After informed consent was obtained, the patient was brought to the medical p rocedure unit and placed in the prone position, when a timeout was completed verifying correct patient, procedure, site, positioning, implant, and/or special equipment.? The skin overlying the area was prepped and draped in standard sterile fashion using alcohol.? A 25-gauge needle was inserted towards the right sacroiliac joint under direct fluoroscopic imaging.? Needle tip was advanced until the joint was encountered.? We instilled a total of 2 mL of solution.? Postoperatively needles were removed.? The patient tolerated the procedure well without complication.? The patient reported reduction in pain symptoms postoperatively. Anesthesia: Local Surgeon: Daisy Liz Pathology: none sent Condition: stable Disposition: no change
== END 2023-12-14 07:38 | disposition home or self-care (01) ==
PROVIDERS: PCP Family Medicine; Visit Provider Anesthesiology
DX: M46.1 Sacroiliitis, not elsewhere classified (principal)
CPT/HCPCS: 27096; J0665; J3301; Q9966

== ENCOUNTER 2023-12-23 08:34 | Outpatient (OUT) | payer MEDICARE, SELFPAY ==
--- NOTE | 2023-12-23 08:52 | P.CN_ITS ---
Consult Note: HPI Data of Consult Patient: known to practice within the last 3 years Consult date: 05/18/23 Requesting Physician: Larissa Turner NP Primary Care Provider: Marine Glass MD Consult Narrative Reason for consult: low back and right hip pain Narrative: 78yof who presents for assessment. hx of chronic low back pain that responds well to right L4-5 L5-S1 facet RFA. she continues in >6 weeks of chiropractic therapy, but this has made pain worse. has tried MDP, muscle relaxant, with limited benefit. patient utilizing mckenna aspirin on occasion for pain, failed tylenol. on eliquis, should avoid all NSAIDs. Previous right L4/5 L5/S1 facet RFA providing >50% improvement greater than 6 months, recently underwent right SIJ injection with 85% improvement ongoing in pain and functinoal ability. intermittent low back pain 2/10. Pain increased with standing, walking, housework, improved with sitting/lying and ice. finds benefit to current medication regimen without side effects. cc:: CC: Larissa Turner NP Review of Systems ROS Status of ROS 10 or more systems reviewed and unremark able except as noted in history and below Musculoskeletal Reports: back pain and joint pain PFSH PFS Medical History (Updated 12/23/23 @ 08:55 by Larissa Turner NP) Neck pain ?M54.2 - Cervicalgia (ICD-10) Upper back pain ?M54.9 - Dorsalgia, unspecified (ICD-10) Low back pain ?M54.50 - Low back pain, unspecified (ICD-10) Osteoarthritis ?M19.90 - Unspecified osteoarthritis, unspecified site (ICD-10) H/O malignant neoplasm of breast ?Z85.3 - Personal history of malignant neoplasm of breast (ICD-10) Hearing deficit ?H91.90 - Unspecified hearing loss, unspecified ear (ICD-10) Former smoker ?Z87.891 - Personal history of nicotine dependence (ICD-10) Hypertension ?I10 - Essential (primary) hypertension (ICD-10) Atrial fibrillation ?I48.91 - Unspecified atrial fibrillation (ICD-10) Cataract ?H26.9 - Unspecified cataract (ICD-10) Surgical History Status post hip surgery ?Z98.890 - Other specified postprocedural states (ICD-10) H/O total hip arthroplasty ?Z96.649 - Presence of unspecified artificial hip joint (ICD-10) H/O cardiac catheterization ?Z98.890 - Other specified postprocedural states (ICD-10) History of cholecystectomy ?Z90.49 - Acquired absence of other specified parts of digestive tract (ICD- 10) H/O: hysterectomy ?Z90.710 - Acquired absence of both cervix and uterus (ICD-10) H/O foot surgery ?Z98.890 - Other specified postprocedural states (ICD-10) H/O eye surgery ?Z98.890 - Other specified postprocedural states (ICD-10) H/O shoulder surgery ?Z98.890 - Other specified postprocedural states (ICD-10) H/O breast surgery ?Z98.890 - Other specified postprocedural states (ICD-10) Social History Smoking status: Never smoker Meds Home Medications and Allergies Home Medications ?Medication ?Instructions ?Recorded ?Confirmed ?Type apixaban 5 mg tablet (Eliquis) 5 mg PO BID 10/28/22 12/14/23 History atenolol 50 mg tablet 75 mg PO DAILY 10/28/22 12/14/23 History baclofen 10 mg tablet 20 mg PO TID 10/28/22 12/14/23 History hydrochlorothiazide 25 mg tablet 25 mg PO DAILY 10/28/22 12/14/23 History lisinopril 20 mg tablet 20 mg PO DAILY 10/28/22 12/14/23 History neuveria vitamin DAILY 10/28/22 History temazepam 30 mg capsule 30 mg PO QPM 10/28/22 12/14/23 History trospium 20 mg tablet 20 mg PO Q12H 04/02/23 12/14/23 History aspirin 500 mg tablet (Mckenna 500 mg PO DAILY PRN pain 11/04/23 12/14/23 History Advanced) cyclosporine 0.05 % eye drops in a drp ophthalmic (eye) 11/04/23 History dropperette omeprazole 40 mg capsule,delayed 40 mg PO DAILY 11/04/23 11/04/23 History release vit C 250 mg-vit E 90 mg-zinc 40 1 tab PO BID 11/04/23 12/14/23 History mg-copper 1 [id number] capsule (PreserVision AREDS-2) flecainide 50 mg tablet mg 12/14/23 History potassium chloride 10 mEq meq PO 12/14/23 History tablet,extended release Allergies Allergy/AdvReac Type Severity Reaction Status Date / Time acetaminophen [From Vicodin] Allergy Severe itching Verified 12/14/23 06:58 hydrocodone [From Vicodin] Allergy Severe itching Verified 12/14/23 06:58 codeine Allergy Unknown Hives Verified 12/14/23 06:58 levofloxacin [From Levaquin] Allergy Unknown uticaria Verified 12/14/23 06:58 morphine Allergy Unknown uticaria Verified 12/14/23 06:58 Penicillins Allergy Unknown uticaria Verified 12/14/23 06:58 tramadol Allergy Unknown uticaria Verified 12/14/23 06:58 Exam Constitutional Documenting provider has reviewed patient's vital signs: yes Common normals: no apparent distress, oriented x3, healthy appearing, alert and well nourished General appearance: cooperative HENMT Common normals: normocephalic, hearing grossly normal bilaterally and moist oral mucous membranes Head and scalp: normocephalic Eye Common normals: PERRL Pupil: PERRL Neck & C-Spine Common normals: full ROM General: normal visual inspection Chest Common normals: inspection of chest normal Respiratory Common normals: normal respiratory effort, no retractions and no use of accessory muscles Back & Pelvis Lumbar spine/lower back: ROM limited, pain with ROM and straight leg raise negative bilaterally Sacroiliac joints: SI joint(s) abnormal Other: bilateral facet loading positive, right greater than left tenderness over L4-S1 facets negative radiculopathy right SIJ exam positive jovanna(patricks), gaenslens, thigh thrust, compression test Extremity Common normals: normal to inspection and full ROM Neuro Common normals: oriented x3, CN's II-XII intact bilaterally, moves all extremities, no focal motor deficits, no sensory deficits noted, deep tendon reflexes 2+ bilaterally and gait normal Sensorium/orientation: alert Motor exam: strength 5/5 throughout and no movement abnormalities noted Psych Common normals: mental status grossly normal, thought process normal, cooperative, affect normal, speech normal and activity/motor behavior normal Speech: normal speech Thought process: normal thought process Results Additional Findings Additional findings: If on a controlled substance or opioids, I have checked an [place] report on this patient and there are no aberrancies noted in the prescribing history.??If on a controlled substance or opioid a drug screen was completed and reviewed within the last year, and if there has not been a drug screen completed we ordered one today to monitor higher risk, state monitored pain medication use. As part of providing excellent, safe, comprehensive care, the following was completed at our patient's visit: 1. A medication reconciliation and review to ensure accurate knowledge of current/active medications, including asking our patients to inform us about any [id number] medications or herbal remedies/nutritional supplements/alternative remedies. 2. A review to specifically ensure our patients have had annual screening for screening for depression, screening for tobacco use, and screening for unhealthy alcohol use. For concerning screenings had a discussion with the patient, provided patient education, and recommended follow-up with primary care provider when appropriate. If patient noted with a risk of falling, they received education on strength, gait, and balance training to prevent future risk of falling. Assessment and Plan Assessment and Plan (1) Sacroiliitis: (2) Lumbar spondylosis: (3) Myofascial pain: Plan can repeat right L4-5 L5-S1 facet joint RFA for axial low back pain in the future as previous RFA provided >50% improvement greater than 6 months, pt to call to schedule continue baclofen 10mg TID PRN f/u 3 months to assess response to right SIJ
== END 2023-12-23 08:35 | disposition home or self-care (01) ==
LOC: PM 08:34
PROVIDERS: PCP Family Medicine; Visit Provider Nurse Practitioner
DX: M46.1 Sacroiliitis, not elsewhere classified (principal); M47.816 Spondylosis without myelopathy or radiculopathy, lumbar region; M79.18 Myalgia, other site
CPT/HCPCS: G0463

== ENCOUNTER 2024-03-23 10:46 | Outpatient (OUT) | payer MEDICARE, SELFPAY ==
--- OUTSIDE RECORDS SUMMARY | 2024-03-23 10:58 | XMS_ITS | CCD ---
Author Organization [facility] Care Team Providers Care Tree Trimmer Name Role Phone PHYSICIAN, DEFAULT Unavailable Unavailable PHYSICIAN, DEFAULT Unavailable Unavailable Elliot Starks MD Primary Care Provider DR ELLIOT STARKS Primary Care Unavailable ANETA EDUARDO Admitting Unavailable ALESHA, ANETA Attending Unavailable ANETA EDUARDO Consulting Unavailable RAUDEL, [...] Miller Attending Unavailable Alfreda Miller Attending Unavailable Elliot Starks MD Primary Care Provider Elliot Starks MD Primary Care Provider ELLIOT STARKS Primary Care Unavailable FRANNY, EILEEN Attending Unavailable FRANNY, EILEEN Attending Unavailable EILEEN BLANTON Referring Unavailable STARKS, ELLIOT E Primary Care [...] Primary Care Unavailable FOSTER, MIKO Referring Unavailable Agusto VILLEGAS, Andrius Dietz Attending Unavailable Gikiaitis , Andrius Vytdannielle Attending Unavailable Gikiaitis , Andrius Vytautas Attending Unavailable Giedraitis , Andrius Vytautas Attending Unavailable Allergies Allergy Classification Reported Allergen(s) Allergy Type Date of Onset Reaction(s) Facility (17 sources) Acetaminophen / HYDROcodone; Translations: [HYDROCODONE-ACET AMINOPHEN] Drug Allergy 03-19-20 17 Unknown, Itching, Rash, Nausea Only [facility] (20 sources) Baclofen; Translations: [baclofen] Drug Allergy 03-19-20 17 Unknown, Itching, Rash [facility] (15 sources) Codeine; Translations: [codeine] Drug Allergy 08-09-19 09 Unknown, Itching, Rash [facility] (20 sources) levoFLOXacin; Translations: [levofloxacin] Drug Allergy 03-19-20 17 Unknown, Itching, Rash, Nausea Only [facility] (20 sources) Morphine; Translations: [morphine] Drug Allergy 08-09-19 09 [facility] (14 sources) oxyCODONE Drug Allergy 12-03-19 16 [facility] (5 sources) Penicillins; Translations: [PENICILLINS] Drug Allergy 12-03-19 16 [facility] (1 source) Baclofen Drug Allergy [facility] (1 source) Codeine Drug Allergy [facility] (14 sources) levoFLOXacin; Translations: [Levaquin] Drug Allergy Unknown [facility] (1 source) Morphine Drug Allergy 05-04-18 94 [facility] (1 source) oxyCODONE Drug Allergy 05-04-19 05 [facility] (1 source) Penicillins Drug allergy (disorder) 05-04-18 93 [facility] (3 sources) traMADol; Translations: [Ultram] Drug Allergy [facility] (11 sources) Codeine Drug Allergy Unknown [facility] Other (14 sources) Penicillin; Translations: [penicillin] Drug Allergy Unknown [facility] (20 sources) traMADol; Translations: [tramadol] Drug Allergy 07-13-19 20 Itching [facility] (19 sources) zolpidem; Translations: [zolpidem] Drug Allergy 07-04-19 23 Unknown, Hives [facility] (6 sources) Penicillins Drug Allergy 12-03-19 16 Hives, Rash [facility] (1 source) Non-steroidal anti-inflammatory agent Drug allergy 02-02-20 13 Unknown [facility] Other (8 sources) sulfADIAZINE; Translations: [SULFADIAZINE] Drug Allergy 07-04-19 23 Comment:Sulfa [facility] Other (1 source) Ultram *ANALGESICS - OPIOID* Propensity to adverse reactions Unknown [facility] Other (1 source) Vioxx *ANALGESICS - ANTI-INFLAMMATORY * Propensity to adverse reactions Unknown [facility] Other (1 source) Penicillin G Benzathine & Proc Drug allergy Unknown [facility] Other (1 source) Morphine Sulfate (Concentrate) *ANALGESICS - OPIOI Propensity to adverse reactions Unknown [facility] Other (1 source) Allergies Reconciled Propensity to adverse reactions Unknown [facility] Other (1 source) patient allergy list reviewed by nurse or physicia Propensity to adverse reactions 02-02-20 13 Comment:Done [facility] Other (1 source) Vicodin *ANALGESICS - OPIOID* Propensity to adverse reactions Unknown [facility] Other (3 sources) calcitonin Drug allergy 10-28-19 24 Unknown, [facility] (10 sources) Penicillins Propensity to adverse reactions to drug 05-14-19 24 [facility] (1 source) Acetaminophen / HYDROcodone; Translations: [Vicodin] Drug Allergy [facility] Repository (1 source) Adhesive Tape; Translations: [Tape] Propensity to adverse reactions (disorder) [facility] Repository (5 sources) Adhesive agent; Translations: [ADHESIVE] Propensity to adverse reactions to drug 07-04-19 23 [facility] (5 sources) penicillin G benzathine / penicillin G procaine; Translations: [PENICILLIN G BENZATHIN,PROCAIN ] Drug Allergy 07-04-19 [facility] (7 sources) rofecoxib; Translations: [ROFECOXIB] Drug Allergy 07-04-19 23 [facility] (1 source) Morphine; Translations: [Morphine Sulfate] Drug Allergy [facility] Rep[facility] (1 source) zolpidem; Translations: [Ambien] Drug Allergy [facility] Rep[facility] (8 sources) Latex Propensity to adverse reactions to drug 06-19-19 24 [facility] (8 sources) *Adhesive Tape Propensity to adverse reactions 07-04-19 [facility] (6 sources) Cephalexin Drug Allergy 07-09-19 24 Nausea Only, Dry Mouth, Flushing [facility] (2 sources) Acetaminophen Drug Allergy 10-28-19 [facility] (2 sources) HYDROcodone Drug Allergy 10-28-19 [facility] (2 sources) Penicillin G Benzathine Allergy to substance 10-28-19 [facility] Medications Current Medications Medication Drug [...] Jul, Active baclofen 10 mg oral tablet (16 sources) gamma-Aminobutyric Acid-ergic Agonist Start: 06-24-2023 take [...] as needed. cycloSPORINE 0.5 mg/ml ophthalmic suspension (2 sources) Calcineurin Inhibitor Immunosuppressant Start: 10-28-2023 take 0.05 [...] x 1 month, then 2x/week for maintainence, [facility]/pharmacy #[id number], 165, cm, 02/11/23 10:41:00 EDT, Height/Length Dosing, 77.5, kg, 02/11/23 10:41:00 EDT, Weight Dosing 02/11/2023 Active Start: 02-11-2023 Estrace 0.1 mg /g Cream See Instructions, 42.5 gm, Refill(s) 3, apply pea size amount to urethra/inner vagina 3x/week x 1 month, then 2x/week for maintainence, [facility]/pharmacy #[id number], 165, cm, 02/11/23 10:41:00 EDT, Height/Length Dosing, 77.5, kg, 02/11/23 10:41:00 EDT, Weight Dosing Start Date: 02/11/23 Status: Ordered flecainide acetate 50 mg oral tablet (11 sources) Antiarrhythmic Start: 10-28-2023 take 50 mg [...] Daily, # 30 tab(s), Refills(s) 11, Pharmacy: [facility]/pharmacy #[id number], 165, cm, 02/11/23 10:41:00 EDT, [...] Me d Name:Neuveria vitamin 1 qd Active Omeprazole (20 sources) Proton Pump Inhibitor Start: 12-22-2023 Omeprazole Active 0 .ROUTE .COMPLEX 180 December 22, 2023 11:13am TAKE 2 CAPSULES DAILY Start: 06-24-2023 End: 12-22-2023 take 40 mg by mouth once daily Omeprazole Discontinued 40 MG PO Daily June 24, 2023 1:00am December 22, 2023 11:13am Start: 02-11-2023 omeprazole 40 mg Cap-DR Refills(s) [...] Active trospium chloride 20 mg oral tablet (20 sources) Cholinergic Muscarinic Antagonist Start: 06-29-2023 take [...] 2023 2:33pm Trospium Chlorid e Active Vitamins A,C,D-Ejoo-Fmwpvz (Preservision Areds) 4,296 mcg-226 mg-90 mg capsule (2 sources) Start: 10-28-2023 take 1 capsule by mouth twice daily Vitamins A,C,A-Snwt-Imdqcg (Preservision Areds) 4,296 mcg-226 mg-90 mg capsule [...] Start: 07-07-2023 take 2 tablets by mo uth every four hours as needed Acetaminophen 325 [...] 08/31/2017 Active take 2 tablets by mo uth every twelve hours apixaban 2.5 MG tablet Take 2 tablets by mouth every 12 hours. Active apixaban 2.5 MG tablet Take by mouth every 12 hours. 0 Active Comment on above: Take 5 mg by mouth t wice daily. aspirin 325 mg oral tablet (4 sources) Platelet Aggregation Inhibitor, Nonsteroidal Anti-inflammatory Drug End: take 1 tablet by mouth once daily [...] Post-op/Post-Proc docusate sodium 50 mg / sennosides, long-term 8.6 mg oral tablet (1 source) Start: [...] Post-op/Post-Proc ketorolac tromethamine 10 mg oral tablet (2 sources) Nonsteroidal Anti-inflammatory Drug, Cyclooxygenase Inhibitor Start: 06-24-2023 End: 06-29-2023 take 10 mg by mouth once Ketorolac Discontinued 10 MG PO Once June 24, 2023 1:00am June 29, 2023 2:31pm methylPREDNISolone 4 mg oral tablet (2 sources) Corticosteroid Start: 06-24-2023 End: 06-29-2023 Methylprednisolone Discontinued [...] citrate 100 mg extended release oral tablet (2 sources) Muscle Relaxant Start: 06-24-2023 End: 06-29-2023 Orphenadrine [...] capsule (20 sources) Benzodiazepine Start: 08-23-2018 End: 02-01-2024 take 30 mg by mouth once Temazepam [...] Coronary arteriosclerosis; Translations: [Atherosclerotic heart disease of [place] coronary artery without angina pectoris] Onset: 07-29-2021 [...] 05-06-2023 Chronic Other aftercare (1 source) Other residential (current) drug therapy; Translations: [OTH FIELD SPEC CURRENT DRUG THERAPY] Onset: 06-11-2022 Episodic Other aftercare (1 source) Long-term current use of anticoagulant; 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: [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] Onset: 02-11-2023 Episodic [...] Onset: 06-11-2022 Episodic Other nervous system disorders (3 sources) Hip pain; Translations: [Other acute postprocedural [...] UTERUS] Onset: 06-11-2022 Episodic Residual codes; unclassified (13 sources) Insomnia; Translations: [Insomnia, unspecified] 08-18-2023 Episodic Residual codes; unclassified (1 source) Insomnia, unspecified; Translations: [Insomnia] Episodic Residual codes; unclassified (1 source) Family history of breast cancer; Translations: [Family history of malignant neoplasm of breast] Episodic Residual codes; unclassified (1 source) Family history of malignant neoplasm of gastrointestinal tract; Translations: [Family history of malignant neoplasm of digestive organs] Episodic Retinal detachments; defects; vascular occlusion; and retinopathy (1 source) Degenerative disorder of macula ; Translations: [Unspecified macular degeneration] 10-28-2023 Chronic Screening and history of mental health and [...] [facility] 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 MAMM SCREENING BILATERAL W CAD MAMM [...] 2:57 PM 2 a FU ACR Normal [facility] 09-17-2023 CNPN Telephone (HEMASA) BETTIE BURNS ([id number]) 1945 F Date Time Provider Department 09/17/23 MATT ADAMS During your visit today, we recorded the following information about you: Matt Adams RN 09/17/2023 10:20 AM Signed Pt called to request yearly Mammogram order I have pended order as previously completed Pt requests to fax to Nori Lema [phone] BRM/HM: please review and sign if agreeable [...] Date Reviewed: 03/16/2019 Reviewed by: Divine Self (Karissa), KARISSA - Fully Assessed Reason for Visit: Yearly Exam With Mammogram [188] Primary Visit Diagnosis:Encounter for screening mammogram for malignant neoplasm of breast [Z12.31] Order(s):[facility] SCREENING W AYW [1606949] Order #: [id number] FUTURE Prescriptions as of 09/17/2023 - lisinopril [...] Status:Closed by ANDREW CHOI on 09/17/23 Normal [facility] [employer] SMEARon 08-22-2023 ACID FAST CULTURE Negative [facility] Comment on above: Result Comment: No a rosy fast bacilli isolated after 6 weeks. PERFORMED AT [facility] Performed By: #### U MAC, UMIC #### [place] [address] *RFLX-FUNGUSon 08-06-2023 RESULT 1 Comment Normal [facility] [place] Comment on above: Result Comment: No y east or mold isolated after 4 weeks. PERFORMED AT [facility] Performed By: #### U MAC, UMIC #### Testing performed at [address] [address] FUNGUS CULTUREon 08-06-2023 FUNGUS CULTURE Final report Normal [facility] Comment on above: Result Comment: PERF ORMED AT [facility] Performed By: #### U MAC, UMIC #### Testing performed at [address] [address] CBC AND AUTO DIFFon 07-15-19 24 ABSOLUTE BASOPHIL 0.1 X10E9/L Normal 0.0-0.2 [facility] Comment on above: Performed By: #### C BCA, 08555-8, PINR, 67479-4, CMP, 69836-2, 34694-6, THYR, 91348-4 #### [facility] ([id number]) [address] [place] [address] ABSOLUTE NEUTROPHIL 2.8 X10E9/L Normal 1.5-6.6 [facility] Comment on above: Performed By: #### C BCA, 08377-2, PINR, 56522-9, CMP, 29790-1, 89747-0, THYR, 77698-7 #### [facility] ([id number]) [address] [place] [address]60 Basophils/100 WBC (Bld) 1.3 % Normal [facility] Comment on above: Performed By: #### C BCA, 75125-8, PINR, 44833-5, CMP, 24407-0, 78901-4, THYR, 51562-6 #### [facility] ([id number]) [address] [place] [address] Eosinophils (Bld) [#/Vol] 0.7 10*3/uL High 0.0-0.4 [facility] Comment on above: Performed By: #### C BCA, 38991-9, PINR, 90012-5, CMP, 00497-6, 88659-4, THYR, 27354-5 #### [facility] ([id number]) [address] [place] [address] 52687 Eosinophils/100 WBC (Bld) 11.9 % Normal [facility] Comment on above: Performed By: #### C BCA, 73894-6, PINR, 51461-8, CMP, 77708-0, 71481-7, THYR, 80906-8 #### [facility] ([id number]) [address] [place] [address] 31358 Erythrocyte distribution width (RBC) [Ratio] 13.5 % Normal 11.5-15.0 [facility] Comment on above: Performed By: #### C BCA, 60574-0, PINR, 80597-0, CMP, 66549-7, 76833-5, THYR, 38322-7 #### [facility] ([id number]) [address] [place] [address] 22786 Hematocrit (Bld) [Volume fraction] 38.5 % Normal 35-47 [facility] Comment on above: Performed By: #### C BCA, 71350-0, PINR, 15446-4, CMP, 59383-0, 39487-7, THYR, 03041-8 #### [facility] ([id number]) [address] [place] [address] 22999 Hemoglobin (Bld) [Mass/Vol] 13.3 g/dL Normal 11.7-15.5 [facility] Comment on above: Performed By: #### C BCA, 49482-1, PINR, 21091-4, CMP, 98623-7, 66026-4, THYR, 23220-3 #### [facility] ([id number]) [address] [place] [address] 98309 Lymphocytes (Bld) [#/Vol] 1.8 10*3/uL Normal 1.0-3.5 [facility] Comment on above: Performed By: #### C BCA, 14258-6, PINR, 09284-1, CMP, 54830-0, 98118-1, THYR, 72218-9 #### [facility] ([id number]) [address] [place] [address] 36781 Lymphocytes/100 WBC (Bld) 29.4 % Normal [facility] Comment on above: Performed By: #### C BCA, 90187-0, PINR, 83057-2, CMP, 81168-8, 98291-9, THYR, 29096-6 #### [facility] ([id number]) [address] [place] [address] 95160 MCH (RBC) [Entitic mass] 32.8 pg Normal 27-34 [facility] Comment on above: Performed By: #### C BCA, 36684-1, PINR, 01712-1, CMP, 62375-5, 53811-7, THYR, 45280-1 #### [facility] ([id number]) [address] [place] [address] 39832 MCHC (RBC) [Mass/Vol] 34.4 g/dL Normal 32-36 [facility] Comment on above: Performed By: #### C BCA, 25259-2, PINR, 85156-3, CMP, 14705-4, 71753-6, THYR, 62075-7 #### [facility] ([id number]) [address] [place] [address] [place] [address] MCV (RBC) [Entitic vol] 95 fL Normal 80-100 [facility] Comment on above: Performed By: #### C BCA, 71377-7, PINR, 08823-3, CMP, 79312-4, 65213-0, THYR, 60445-6 #### [facility] ([id number]) [address] [place] [address] [place] [address] Monocytes (Bld) [#/Vol] 0.8 10*3/uL Normal 0-0.9 [facility] Comment on above: Performed By: #### C BCA, 95502-3, PINR, 22909-2, CMP, 71316-5, 18592-3, THYR, 00632-0 #### [facility] ([id number]) [address] [place] [address]85[address] Monocytes/100 WBC (Bld) 13.2 % Normal [facility] Comment on above: Performed By: #### C BCA, 96489-0, PINR, 15093-6, CMP, 75827-4, 53446-5, THYR, 46635-1 #### [facility] ([id number]) [address] [place] [address] Neutrophils/100 WBC (Bld) 44.2 % Normal [facility] Comment on above: Performed By: #### C BCA, 28941-5, PINR, 08247-7, CMP, 89804-3, 41906-0, THYR, 99105-5 #### [facility] ([id number]) [address] [place] [address] [place] [address] Platelet mean volume (Bld) [Entitic vol] 6.9 fL Low 7-12 [facility] Comment on above: Performed By: #### C BCA, 16548-6, PINR, 59321-3, CMP, 41101-4, 02298-3, THYR, 52467-8 #### [facility] ([id number]) [address] [place] [address] Platelets (Bld) [#/Vol] 340 10*3/uL Normal 150-450 [facility] Comment on above: Performed By: #### C BCA, 96938-3, PINR, 12537-9, CMP, 58501-1, 24995-3, THYR, 03586-2 #### [facility] ([id number]) [address] [place] [address] 72545 RBC COUNT 4.05 X10E12/L Normal 3.80-5.20 [facility] Comment on above: Performed By: #### C BCA, 90566-2, PINR, 20488-3, CMP, 78752-9, 48683-2, THYR, 95281-9 #### [facility] ([id number]) [address] [place] [address] WBC (Bld) [#/Vol] 6.2 10*3/uL Normal 4.0-11.0 [facility] Comment on above: Performed By: #### C BCA, 79348-4, PINR, 16276-7, CMP, 69649-1, 24464-1, THYR, 96160-5 #### [facility] ([id number]) [address] [place] [address] COMPREHENSIVE METABOLIC PANE [facility] 07-15-2023 Albumin [Mass/Vol] 3.5 g/dL Normal 3.2-5.3 [facility] Comment on above: Performed By: #### C BCA, 86572-6, PINR, 38297-3, CMP, 68008-1, 82681-3, THYR, 87281-9 #### [facility] ([id number]) [address] [place] [address] 68[address] ALP [Catalytic activity/Vol] 52 U/L Normal 39-130 [facility] Comment on above: Performed By: #### C BCA, 35416-0, PINR, 27465-8, CMP, 60932-7, 29330-7, THYR, 21706-2 #### [facility] ([id number]) [address] [place] [address] 71953 ALT [Catalytic activity/Vol] 13 U/L Normal 0-31 [facility] Comment on above: Performed By: #### C BCA, 86417-6, PINR, 12425-1, CMP, 00319-2, 02170-0, THYR, 68849-4 #### [facility] ([id number]) [address] [place] [address] 58071 Anion gap [Moles/Vol] 10 mmol/L Normal 5-15 [facility] Comment on above: Performed By: #### C BCA, 78047-4, PINR, 39457-7, CMP, 98271-5, 50246-8, THYR, 23902-9 #### [facility] ([id number]) [address] [place] [address] 11735 AST [Catalytic activity/Vol] 24 U/L Normal 0-41 [facility] Comment on above: Performed By: #### C BCA, 28408-7, PINR, 14889-6, CMP, 93266-9, 89763-4, THYR, 37038-7 #### [facility] ([id number]) [address] [place] [address] 30238 Bilirubin [Mass/Vol] 0.7 mg/dL Normal 0.3-1.2 [facility] Comment on above: Performed By: #### C BCA, 54035-6, PINR, 73736-5, CMP, 43827-1, 44483-9, THYR, 25137-2 #### [facility] ([id number]) [address] [place] [address] 27665 Calcium [Mass/Vol] 9.4 mg/dL Normal 8.5-10.5 [facility] Comment on above: Performed By: #### C BCA, 43916-5, PINR, 08013-7, CMP, 41429-2, 02115-3, THYR, 42572-2 #### [facility] ([id number]) [address] [place] [address] 73638 Chloride [Moles/Vol] 102 mmol/L Normal 98-109 [facility] Comment on above: Performed By: #### C BCA, 31405-0, PINR, 69231-9, CMP, 64721-8, 21644-0, THYR, 16227-5 #### [facility] ([id number]) [address] [place] [address] 45888 CO2 [Moles/Vol] 27 mmol/L Normal 22-32 [facility] Comment on above: Performed By: #### C BCA, 74650-1, PINR, 49999-3, CMP, 89203-9, 08709-1, THYR, 06591-7 #### [facility] ([id number]) [address] [place] [address] 38117 Creatinine [Mass/Vol] 1.21 mg/dL High 0.40-1.00 [facility] Comment on above: Result Comment: METH OD TRACEABLE TO IDMS STANDARD Performed By: #### C BCA, 34889-7, PINR, 30260-0, CMP, 58683-6, 05139-1, THYR, 35719-6 #### [facility] ([id number]) [address] [place] [address] 94383 GFR/1.73 sq M.predicted among non-blacks MDRD (S/P/Bld) [Vol rate/Area] 46 mL/min/{1.73_m2} Low >59 [facility] Comment on above: Result Comment: Reported eGFR is based on the CKD-EPI 2020 equation that does not use a race coefficient. Performed By: #### C BCA, 19611-8, PINR, 86705-7, CMP, 87496-2, 93031-1, THYR, 53143-8 #### [facility] ([id number]) [address] [place] [address] 40625 Glucose [Mass/Vol] 120 mg/dL High 65-99 [facility] Comment on above: Performed By: #### C BCA, 13888-7, PINR, 88786-3, CMP, 28190-6, 33631-1, THYR, 21042-5 #### [facility] ([id number]) [address] [place] [address] 71656 Potassium [Moles/Vol] 4.0 mmol/L Normal 3.5-5.0 [facility] Comment on above: Performed By: #### C BCA, 86008-0, PINR, 21510-6, CMP, 75707-8, 06626-2, THYR, 93433-5 #### [facility] ([id number]) [address] [place] [address] 38721 Protein [Mass/Vol] 6.8 g/dL Normal 6.0-8.0 [facility] Comment on above: Performed By: #### C BCA, 75178-1, PINR, 16738-0, CMP, 25833-1, 22279-1, THYR, 04044-1 #### [facility] ([id number]) [address] [place] [address] 92114 Sodium [Moles/Vol] 139 mmol/L Normal 134-146 [facility] Comment on above: Performed By: #### C BCA, 95194-0, PINR, 56540-2, CMP, 69433-6, 01283-5, THYR, 21380-1 #### [facility] ([id number]) [address] [place] [address] 42377 Urea nitrogen [Mass/Vol] 31 mg/dL High 5-27 [facility] Comment on above: Performed By: #### C BCA, 69856-9, PINR, 65522-4, CMP, 33662-2, 93838-5, THYR, 36209-3 #### [facility] ([id number]) [address] [place] [address] 92250 Fibrin D-dimer DDU (PPP) [Ma ss/Vol]on 07-15-2023 D DIMER 220 ng/mL DDU Normal <255 [facility] Comment on above: Result Comment: Results <255 ng/mL DDU: The presence of a VTE can safely be excluded with a negative D-Dimer result and Wells score. A negative result doesn't exclude the possibility of DIC. The test be repeated along with other diagnostic tests if the patient's symptoms persist or worsen. [email or web address] Performed By: #### C BCA, 22868-8, PINR, 98688-4, CMP, 28973-1, 42707-0, THYR, 48130-6 #### [facility] ([id number]) [address] [place] [address] 86393 MAGNESIUMon 07-15-2023 Magnesium [Mass/Vol] 1.8 mg/dL Normal 1.8-2.6 [facility] Comment on above: Performed By: #### C BCA, 01573-1, PINR, 54759-2, CMP, 28472-3, 54060-6, THYR, 74613-3 #### [facility] ([id number]) [address] [place] [address] 24699 Natriuretic peptide B [Mass/ Vol]on 07-15-2023 Natriuretic peptide B (Bld) [Mass/Vol] 119 pg/mL High <100.0 [facility] Comment on above: Performed By: #### C BCA, 74805-3, PINR, 08228-6, CMP, 00256-1, 71955-0, THYR, 96456-1 #### [facility] ([id number]) [address] [place] [address] 52534 PROTIME AND INRon 07-15-2023 INR Coag (PPP) [Relative time] 1.8 {INR} High 0.8-1.1 [facility] Comment on above: Performed By: #### C BCA, 71228-5, PINR, 72479-2, CMP, 96843-2, 04984-6, THYR, 33503-7 #### [facility] ([id number]) [address] [place] [address] 60704 PT Coag (PPP) [Time] 20.8 s High 9.8-13.2 [facility] Comment on above: Result Comment: NEW REFERENCE RANGE Performed By: #### C BCA, 12350-0, PINR, 55159-1, CMP, 77712-7, 21637-1, THYR, 16273-9 #### [facility] ([id number]) [address] [place] [id number] THYROID PROFILEon 07-15-2023 Free T4 [Mass/Vol] 1.25 ng/dL Normal 0.61-1.60 [facility] Comment on above: Performed By: #### C BCA, 11944-5, PINR, 14995-5, CMP, 46615-5, 88149-7, THYR, 68116-5 #### [facility] ([id number]) [address] [place] [id number] TSH 1.69 uIU/mL Normal 0.49-4.67 [facility] Comment on above: Performed By: #### C BCA, 00560-2, PINR, 51457-2, CMP, 59201-6, 70205-9, THYR, 52449-9 #### [facility] ([id number]) [address] [place] [id number] TROPONIN Ion 07-15-2023 Troponin I.cardiac [Mass/Vol] 0.01 ng/mL Normal 0.00-0.04 [facility] Comment on above: Performed By: #### C BCA, 05713-6, PINR, 45181-0, CMP, 58966-5, 26188-8, THYR, 73212-1 #### [facility] ([id number]) [address] [place] [address] XR CHEST 2 VWSon 07-15-2023 XR CHEST 2 VWS XR CHEST 2 VWS History: chest pressure Exam/Technique: PA and lateral chest Comparison: None. Findings: There is no evidence of active pulmonary or pleural disease. Cardiac and mediastinal contours are within normal limits. Left-sided surgical clips. Granulomatous changes. IMPRESSION: No active pulmonary disease. Finalized by Adrian Ervin MD on 07/15/2023 1:14 PM Normal [facility] aPTT Coag (PPP) [Time]on aPTT Coag (Bld) [Time] 36 s Normal 26-37 [facility] Comment on above: Result Comment: NEW REFERENCE RANGE Performed By: #### C BCA, 95476-9, PINR, 71691-8, CMP, 83823-7, 12280-5, THYR, 80810-9 #### [facility] ([id number]) [address] [place] [address], [place] [address] AFB SMEARon 07-09-2023 ACID FAST SMEAR Negative Normal [facility] Comment on above: Result Comment: PERF ORMED AT [facility] Performed By: #### U MAC, UMIC #### Testing performed at [address] [address] BASIC METABOLIC PANELon Anion gap [Moles/Vol] 1 mmol/L MMOL/L [facility] Calcium [Mass/Vol] 8.7 mg/dL [facility] Chloride [Moles/Vol] 103 mmol/L [facility] Comment on above: Please note: Triglyc eride levels of 600mg/dL or higher may positively bias chloride results by approximately 2.1 mmol CO2 [Moles/Vol] 30 mmol/L [facility] Creatinine [Mass/Vol] 1.10 mg/dL [facility] GFR COMMENT Average GFR for 70+ years old = 75. [facility] Comment on above: Chronic Kidney disea se, GFR = <60. Kidney failure, GFR = <15. The GFR estimate is not adjusted for extreme body surface area or acute process, nor has it been validated for women or ethnic groups other than and . GFR/1.73 sq M.predicted among blacks MDRD (S/P/Bld) [Vol rate/Area] 62 mL/min/{1.73_m2} ml/min/1.73sq. m [facility] GFR/1.73 sq M.predicted among non-blacks MDRD (S/P/Bld) [Vol rate/Area] 51 mL/min/{1.73_m2} ml/min/1.73sq. m [facility] Glucose post fast [Mass/Vol] 141 mg/dL High [facility] Comment on above: NORMAL <100 mg/dL PREDIABETES 101-126 mg/dL DIABETES 126 mg/dL or higher Interpretation and review of laboratory results Abnormal [facility] Potassium [Moles/Vol] 3.8 mmol/L [facility] Sodium [Moles/Vol] 134 mmol/L Low [facility] Urea nitrogen [Mass/Vol] 30 mg/dL High [facility] BMP FASTINGon 2023 Anion gap [Moles/Vol] 1 mmol/L Normal [facility] [place] [facility] Comment on above: Performed By: #### U MAC, UMIC #### Testing performed at [address] [address] Calcium [Mass/Vol] 8.7 mg/dL Normal 8.4-10.2 [facility] [place] [facility] Comment on above: Performed By: #### U MAC, UMIC #### Testing performed at [address] [address] Chloride [Moles/Vol] 103 mmol/L Normal 98-107 [facility] [place] [facility] Comment on above: Result Comment: Kristine bryant note: Triglyceride levels of 600mg/dL or higher may positively bias chloride results by approximately 2.1 mmol Performed By: #### U MAC, UMIC #### Testing performed at [address] [address] CO2 [Moles/Vol] 30 mmol/L Normal 22-30 [facility] Comment on above: Performed By: #### U MAC, UMIC #### Testing performed at [address] [address] Creatinine [Mass/Vol] 1.10 mg/dL Normal 0.70-1.20 [facility] [place] [facility] Comment on above: Performed By: #### U MAC, UMIC #### Testing performed at [address] [address] EST. GFR, 62 ml/min/1.73sq.m [facility] Comment on above: Performed By: #### U MAC, UMIC #### Testing performed at [address] [address] EST. GFR,Non 51 ml/min/1.73sq.m [facility] Comment on above: Performed By: #### U MAC, UMIC #### Testing performed at [address] [address] GFR Information Average GFR for 70+ years old = 75. [facility] Comment on above: Result Comment: Processing [employer] Supervisor juan diego Kidney disease, GFR = <60. Kidney failure, GFR = <15. The GFR estimate is not adjusted for extreme body surface area or acute process, nor has it been validated for women or ethnic groups other than and . Performed By: #### U MAC, UMIC #### Testing performed at [address] [address] Glucose [Mass/Vol] 141 mg/dL High 70-100 [facility] [place] Comment on above: Result Comment: NORMAL <100 mg/dL PREDIABETES 101-126 mg/dL DIABETES 126 mg/dL or higher Performed By: #### U MAC, UMIC #### Testing performed at [address] [address] Potassium [Moles/Vol] 3.8 mmol/L Normal 3.5-5.1 [facility] [place] [facility] Comment on above: Performed By: #### U MAC, UMIC #### Testing performed at [address] [address] Sodium [Moles/Vol] 134 mmol/L Low 137-145 [facility] [place] [facility] Comment on above: Performed By: #### U MAC, UMIC #### Testing performed at [address] [address] Urea nitrogen [Mass/Vol] 30 mg/dL High 7-20 [facility] [place] [facility] Comment on above: Performed By: #### U MAC, UMIC #### Testing performed at [address] [place] [address] [facility]Con 2023 ABSOLUTE BAS 0.0 10*3/uL Normal 0.0-0.2 [facility] Comment on above: Performed By: #### U MAC, UMIC #### Testing performed at [address] [place] [address] ABSOLUTE EOS 0.0 10*3/uL Normal 0.0-0.7 [facility] Comment on above: Performed By: #### U MAC, UMIC #### Testing performed at [address] [place] [address] ABSOLUTE NEUTROPHIL COUNT 5.2 10*3/uL Normal 1.4-6.5 [facility] [place] [facility] Comment on above: Performed By: #### U MAC, UMIC #### Testing performed at [address] [place] [address] Basophils/100 WBC (Bld) 0.3 % Normal 0.0-2.0 [facility] [place] Comment on above: Performed By: #### U MAC, UMIC #### Testing performed at [address] [place] [address] DTYPE AUTO DIFF Normal [facility] [place] [facility] Comment on above: Performed By: #### U MAC, UMIC #### Testing performed at [address] [place] [address] Eosinophils/100 WBC (Bld) 0.0 % Normal 0.0-11.0 [facility] [place] [facility] Comment on above: Performed By: #### U MAC, UMIC #### Testing performed at [address] [address] Lymphocytes (Bld) [#/Vol] 1.1 10*3/uL Low 1.2-3.4 [facility] [place] [facility] Comment on above: Performed By: #### U MAC, UMIC #### Testing performed at [address] [place] [address] Lymphocytes/100 WBC (Bld) 16.4 % Low 20.0-55.0 [facility] [place] [facility] Comment on above: Performed By: #### U MAC, UMIC #### Testing performed at [address] [address] Monocytes (Bld) [#/Vol] 0.3 10*3/uL Normal 0.0-0.7 [facility] [place] [facility] Comment on above: Performed By: #### U MAC, UMIC #### Testing performed at [address] [address] Monocytes/100 WBC (Bld) 4.3 % Normal 0.0-10.0 [facility] [place] [facility] Comment on above: Performed By: #### U MAC, UMIC #### Testing performed at [address] [address] Neutrophils/100 WBC (Bld) 79.0 % High 37.0-75.0 [facility] [place] Comment on above: Performed By: #### U MAC, UMIC #### Testing performed at [address] [address] Erythrocyte distribution width (RBC) [Ratio] 13.2 % Normal 11.5-14.5 [facility] [place] [facility] Comment on above: Performed By: #### U MAC, UMIC #### Testing performed at [address] [address] Hematocrit (Bld) [Volume fraction] 33.6 % Low 36.0-48.0 [facility] [place] [facility] Comment on above: Performed By: #### U MAC, UMIC #### Testing performed at [address] [address] Hemoglobin (Bld) [Mass/Vol] 12.0 g/dL Normal 12.0-16.0 [facility] Comment on above: Performed By: #### U MAC, UMIC #### Testing performed at [address] [address] MCH (RBC) [Entitic mass] 33.6 pg Normal 26.0-35.0 [facility] [place] [facility] Comment on above: Performed By: #### U MAC, UMIC #### Testing performed at [address] [address] MCHC (RBC) [Mass/Vol] 35.6 g/dL Normal 27.0-37.0 [facility] [place] [facility] Comment on above: Performed By: #### U MAC, UMIC #### Testing performed at [address] [address] MCV (RBC) [Entitic vol] 94.2 fL Normal 80.0-100.0 [facility] [place] [facility] Comment on above: Performed By: #### U LIYAH DONOVAN #### Testing performed at [address] [address] Platelet mean volume (Bld) [Entitic vol] 7.0 fL Low 7.4-11.0 [facility] [place] [facility] Comment on above: Performed By: #### U VENUS, UM #### Testing performed at [address] [address] Platelets (Bld) [#/Vol] 226 10*3/uL Normal 130-400 [facility] [place] [facility] Comment on above: Performed By: #### U VENUS, LIYAH #### Testing performed at [address] [address] RBC (Bld) [#/Vol] 3.57 10*6/uL Low 4.0-5.4 [facility] [place] [facility] Comment on above: Performed By: #### Prem DONOVAN UMROSETTE #### Testing performed at [address] [address] WBC (Bld) [#/Vol] 6.6 10*3/uL Normal 3.6-11.0 [facility] [place] [facility] Comment on above: Performed By: #### U VENUS, UM #### Testing performed at [address] [address] CBC, EDIF, PLATELETon 2023 ABSOLUTE BASOPHIL COUNT 0.0 10*3/uL 0.0 - 0.2 10*3/uL [facility] Basophils/100 WBC (Bld) 0.3 % 0.0 - 2.0 % [facility] Differential cell count method Nom (Bld) AUTO DIFF % [facility] Eosinophils (Bld) [#/Vol] 0.0 10*3/uL 0.0 - 0.7 10*3/uL [facility] Eosinophils/100 WBC (Bld) 0.0 % 0.0 - 11.0 % [facility] Erythrocyte distribution width (RBC) [Ratio] 13.2 % 11.5 - 14.5 % [facility] Hematocrit (Bld) [Volume fraction] 33.6 % Low 36.0 - 48.0 % [facility] Hemoglobin (Bld) [Mass/Vol] 12.0 g/dL [facility] Interpretation and review of laboratory results Abnormal [facility] Lymphocytes (Bld) [#/Vol] 1.1 10*3/uL Low 1.2 - 3.4 10*3/uL [facility] Lymphocytes/100 WBC (Bld) 16.4 % Low 20.0 - 55.0 % [facility] MCH (RBC) [Entitic mass] 33.6 pg 26.0 - 35.0 PG [facility] MCHC (RBC) [Mass/Vol] 35.6 g/dL [facility] MCV (RBC) [Entitic vol] 94.2 fL [facility] Monocytes (Bld) [#/Vol] 0.3 10*3/uL 0.0 - 0.7 10*3/uL [facility] Monocytes/100 WBC (Bld) 4.3 % 0.0 - 10.0 % [facility] Neutrophils (Bld) [#/Vol] 5.2 10*3/uL 1.4 - 6.5 10*3/uL [facility] Neutrophils/100 WBC (Bld) 79.0 % High 37.0 - 75.0 % [facility] Platelet mean volume (Bld) [Entitic vol] 7.0 fL Low [facility] Platelets (Bld) [#/Vol] 226 10*3/uL 130 - 400 10*3/uL [facility] RBC (Bld) [#/Vol] 3.57 10*6/uL Low 4.0 - 5.4 10*6/uL [facility] WBC (Bld) [#/Vol] 6.6 10*3/uL 3.6 - 11.0 10*3/uL [facility] ANAEROBIC CULTUREon 07-07-19 ANAEROBIC CULTURE SPECIMEN DESCRIPTION HIP RIGHT SPECIAL REQUESTS RIGHT HIP SUTURE GRAM SMEAR NO * Result Note: WBC'S SEEN * * Result Note: NO ORGANISMS SEEN * CULTURE NO GROWTH 5 DAYS * Result Note: Testing performed at [facility], [place], [place] [address] * REPORT STATUS 07/12/2023 * Result Note: FINAL * Normal [facility] [place] [facility] Comment on above: Performed By: #### U MAC, UMIC #### Testing performed at [facility] [address] [place] [address] ANAEROBIC CULTURE SPECIMEN DESCRIPTION HIP RIGHT SPECIAL REQUESTS RIGHT HIP INCISIONAL FLUID GRAM SMEAR NO * Result Note: WBC'S SEEN * * Result Note: NO ORGANISMS SEEN * CULTURE NO GROWTH 5 DAYS * Result Note: Testing performed at [place] [address] * REPORT STATUS 07/12/2023 * Result Note: FINAL * Normal [facility] [place] [facility] Comment on above: Performed By: #### A NER #### Testing performed at [address] [address] Testing performed at [address] [address] BODY FLUID CELL COUNTon Appearance (Body fld) HAZY [facility] Color (Body fld) LIGHT YELLOW [facility] RBC Auto (Body fld) [#/Vol] 3376 /CMM [facility] Specimen source Nom (Body fld) SYNOVIAL FLUID [facility] WBC (Body fld) [#/Vol] 57 10*3/uL /CMM [facility] DIFFERENTIAL, FLUIDon 2023 BASOPHILS, FLUID 2 % [facility] Comment on above: NO REFERENCE RANGE E STABLISHED Eosinophils/100 WBC (Body fld) 4 % [facility] Comment on above: NO REFERENCE RANGE E STABLISHED Lymphocytes/100 WBC (Body fld) 22 % [facility] Comment on above: NO REFERENCE RANGE E STABLISHED MESOTHELIAL CELLS, FLUID 8 % [facility] Comment on above: NO REFERENCE RANGE E STABLISHED Monocytes+Macrophag es/100 WBC Manual cnt (Body fld) 48 % [facility] Comment on above: NO REFERENCE RANGE E STABLISHED Neutrophils/100 WBC (Body fld) 16 % [facility] Comment on above: NO REFERENCE RANGE E STABLISHED [facility] FLUID CELL COUNTon FLUID APPEARANCE HAZY Normal [facility] Comment on above: Performed By: #### U MAC, UMIC #### Testing performed at [address] [place] [address] FLUID COLOR LIGHT YELLOW Normal [facility] Comment on above: Performed By: #### U MAC, UMIC #### Testing performed at [address] [place] [address] FLUID RBC'S 3376 /CMM Normal [facility] [place] [facility] Comment on above: Performed By: #### U MAC, UMIC #### Testing performed at [address] [place] [address] FLUID TYPE SYNOVIAL FLUID Normal [facility] Comment on above: Performed By: #### U MAC, UMIC #### Testing performed at [address] [place] [address] TOTAL NUCLEATED CELLS 57 /CMM Normal [facility] [place] [facility] Comment on above: Performed By: #### U MAC, UMIC #### Testing performed at [address] [address] FLUID DIFFERENTIALon 024 FLUID BASOPHILS 2 % Normal [facility] Comment on above: Result Comment: NO R EFERENCE RANGE ESTABLISHED Performed By: #### F DIFF #### Testing performed at [address] [place] [address] FLUID EOSINOPHILS 4 % Normal [facility] Comment on above: Result Comment: NO R EFERENCE RANGE ESTABLISHED Performed By: #### F DIFF #### Testing performed at [address] [address] FLUID LYMPHOCYTES 22 % Normal [facility] Comment on above: Result Comment: NO R EFERENCE RANGE ESTABLISHED Performed By: #### F DIFF #### Testing performed at [address] [place] [address] FLUID MESOTHELIALS 8 % Normal [facility] [place] Comment on above: Result Comment: NO R EFERENCE RANGE ESTABLISHED Performed By: #### F DIFF #### Testing performed at [address] [place] [address] FLUID MONO/MACRO 48 % Normal [facility] Comment on above: Result Comment: NO R EFERENCE RANGE ESTABLISHED Performed By: #### F DIFF #### Testing performed at [address] [place] [address] FLUID NEUTROPHILS 16 % Normal [facility] Comment on above: Result Comment: NO R EFERENCE RANGE ESTABLISHED Performed By: #### F DIFF #### Testing performed at [address] [address] MRSA SCREENon 07-07-2023 MRSA DNA CHRISTOPHER+probe Ql (Unsp spec) Negative Normal NEGATIVE [facility] [place] [facility] Comment on above: Performed By: #### M RSAST #### Testing performed at [address] [address] STAPH AUREUS SCREEN Negative Normal NEGATIVE [facility] [place] [facility] Comment on above: Result Comment: TEST ING PERFORMED BY PCR Performed By: #### M RSAST #### Testing performed at [address] [address] REPEAT ABO/RHon 07-07-2023 REPEAT ABO/RH Positive Normal [facility] Comment on above: Performed By: #### U MAC, UMIC #### Testing performed at [address] [address] REPEAT ABO/RH (D) TYPINGon 0 07-07-2023 ABO and Rh group Nom (Bld ) Positive [facility] SCREEN: MRSA ONLY, NARES (IS OLATION SCREEN)on 07-07-2023 MRSA isol Org specific cx Ql (Nose) Negative NEGATIVE [facility] STAPHYOCOCCUS AUREUS BY PCR Negative NEGATIVE [facility] Comment on above: TESTING PERFORMED BY PCR [facility] WOUND CULTUREon 07-07-2023 WOUND CULTURE SPECIMEN DESCRIPTION HIP RIGHT SPECIAL REQUESTS RIGHT HIP INCISIONAL FLUID GRAM SMEAR NO * Result Note: WBC'S SEEN * * Result Note: NO ORGANISMS SEEN * CULTURE NO GROWTH 5 DAYS * Result Note: Testing performed at [place], [place] [address] * REPORT STATUS 07/12/2023 * Result Note: FINAL * Normal [facility] [place] [facility] Comment on above: Performed By: #### U MAC, UMIC #### Testing performed at [address] [place] [address] XR PELVIS 1-2 VIEWSon 2023 XR PELVIS [...] other acute bony abnormality is seen. Normal [facility] [place] [facility] XR Pelvis 2 Viewson 07-07-19 FINDINGS/IMPRESSION: 1. [...] or other acute bony abnormality is seen. [facility] Radiology Study observation (narrative) [facility] XR Pelvis 2 ViewsOrdered By: Parveen Mason on 07-07-2023 [facility] Work Phone: CBCon 06-25-2023 ABSOLUTE BAS 0.1 10*3/uL Normal 0.0-0.2 [facility] Comment on above: Performed By: #### U MAC, UMIC #### Testing performed at [address] [address] ABSOLUTE EOS 0.1 10*3/uL Normal 0.0-0.7 [facility] Comment on above: Performed By: #### U MAC, UMIC #### Testing performed at [address] [address] ABSOLUTE NEUTROPHIL COUNT 4.3 10*3/uL Normal 1.4-6.5 [facility] [place] [facility] Comment on above: Performed By: #### U MAC, UMIC #### Testing performed at [address] [address] Basophils/100 WBC (Bld) 0.9 % Normal 0.0-2.0 [facility] Comment on above: Performed By: #### U MAC, UMIC #### Testing performed at [address] [place] [address] DTYPE AUTO DIFF Normal [facility] [place] [facility] Comment on above: Performed By: #### U MAC, UMIC #### Testing performed at [address] [address] Eosinophils/100 WBC (Bld) 1.2 % Normal 0.0-11.0 [facility] [place] [facility] Comment on above: Performed By: #### U MAC, UMIC #### Testing performed at [address] [address] Lymphocytes (Bld) [#/Vol] 2.5 10*3/uL Normal 1.2-3.4 [facility] [place] [facility] Comment on above: Performed By: #### U MAC, UMIC #### Testing performed at [address] [address] Lymphocytes/100 WBC (Bld) 32.3 % Normal 20.0-55.0 [facility] [place] [facility] Comment on above: Performed By: #### U MAC, UMIC #### Testing performed at [address] [address] Monocytes (Bld) [#/Vol] 0.8 10*3/uL High 0.0-0.7 [facility] Comment on above: Performed By: #### U MAC, UMIC #### Testing performed at [address] [address] Monocytes/100 WBC (Bld) 10.1 % High 0.0-10.0 [facility] [place] [facility] Comment on above: Performed By: #### U MAC, UMIC #### Testing performed at [address] [address] Neutrophils/100 WBC (Bld) 55.5 % Normal 37.0-75.0 [facility] [place] [facility] Comment on above: Performed By: #### U MAC, UMIC #### Testing performed at [address] [place] [address] Erythrocyte distribution width (RBC) [Ratio] 13.5 % Normal 11.5-14.5 [facility] [place] [facility] Comment on above: Performed By: #### U MAC, UMIC #### Testing performed at [address] [address] Hematocrit (Bld) [Volume fraction] 43.9 % Normal 36.0-48.0 [facility] [place] [facility] Comment on above: Performed By: #### U MAC, UMIC #### Testing performed at [address] [address] Hemoglobin (Bld) [Mass/Vol] 15.0 g/dL Normal 12.0-16.0 [facility] [place] [facility] Comment on above: Performed By: #### U MAC, UMIC #### Testing performed at [address] [address] MCH (RBC) [Entitic mass] 32.6 pg Normal 26.0-35.0 [facility] [place] [facility] Comment on above: Performed By: #### U MAC, UMIC #### Testing performed at [address] [address] MCHC (RBC) [Mass/Vol] 34.0 g/dL Normal 27.0-37.0 [facility] [place] [facility] Comment on above: Performed By: #### U MAC, UMIC #### Testing performed at [address] [address] MCV (RBC) [Entitic vol] 95.8 fL Normal 80.0-100.0 [facility] [place] [facility] Comment on above: Performed By: #### U MAC, UMIC #### Testing performed at [address] [address] Platelet mean volume (Bld) [Entitic vol] 7.3 fL Low 7.4-11.0 [facility] [place] [facility] Comment on above: Performed By: #### U MAC, UMIC #### Testing performed at [address] [address] Platelets (Bld) [#/Vol] 286 10*3/uL Normal 130-400 [facility] [place] [facility] Comment on above: Performed By: #### U MAC, UMIC #### Testing performed at [address] [address] RBC (Bld) [#/Vol] 4.59 10*6/uL Normal 4.0-5.4 [facility] [place] [facility] Comment on above: Performed By: #### U MAC, UMIC #### Testing performed at [address] [address] WBC (Bld) [#/Vol] 7.8 10*3/uL Normal 3.6-11.0 [facility] [place] Comment on above: Performed By: #### U MAC, UMIC #### Testing performed at [address] [address] CMP FASTINGon 06-25-2023 A:G RATIO 1.4 RATIO Normal [facility] [place] Comment on above: Performed By: #### U MAC, UMIC #### Testing performed at [address] [address] ALBUMIN 4.4 G/dl Normal 3.5-5.0 [facility] [place] Comment on above: Performed By: #### U MAC, UMIC #### Testing performed at [address] [address] ALP [Catalytic activity/Vol] 54 U/L Normal 38-126 [facility] [place] Comment on above: Performed By: #### U MAC, UMIC #### Testing performed at [address] [address] ALT [Catalytic activity/Vol] 22 U/L Normal <35 [facility] [place] Comment on above: Performed By: #### U MAC, UMIC #### Testing performed at [address] [address] AST [Catalytic activity/Vol] 32 U/L Normal 14-36 [facility] [place] Comment on above: Performed By: #### U MAC, UMIC #### Testing performed at [address] [address] Bilirubin [Mass/Vol] 0.5 mg/dL Normal 0.2-1.3 [facility] [place] Comment on above: Performed By: #### U MAC, UMIC #### Testing performed at [address] [address] Calcium [Mass/Vol] 9.9 mg/dL Normal 8.4-10.2 [facility] [place] Comment on above: Performed By: #### U MAC, UMIC #### Testing performed at [address] [address] Chloride [Moles/Vol] 100 mmol/L Normal 98-107 [facility] [place] Comment on above: Result Comment: Kristine bryant note: Triglyceride levels of 600mg/dL or higher may positively bias chloride results by approximately 2.1 mmol Performed By: #### U MAC, UMIC #### Testing performed at [address] [address] CO2 [Moles/Vol] 33 mmol/L High 22-30 [facility] Comment on above: Performed By: #### U MAC, UMIC #### Testing performed at [address] [address] Creatinine [Mass/Vol] 1.10 mg/dL Normal 0.70-1.20 [facility] [place] [facility] Comment on above: Performed By: #### U MAC, UMIC #### Testing performed at [address] [address] EST. GFR, 62 ml/min/1.73sq.m [facility] Comment on above: Performed By: #### U MAC, UMIC #### Testing performed at [address] [address] EST. GFR,Non 51 ml/min/1.73sq.m [facility] Comment on above: Performed By: #### U MAC, UMIC #### Testing performed at [address] [address] GFR Information Average GFR for 70+ years old = 75. Normal [facility] [place] Comment on above: Result Comment: Processing [employer] Supervisor juan diego Kidney disease, GFR = <60. Kidney failure, GFR = <15. The GFR estimate is not adjusted for extreme body surface area or acute process, nor has it been validated for women or ethnic groups other than and . Performed By: #### U MAC, UMIC #### Testing performed at [address] [address] Glucose [Mass/Vol] 114 mg/dL High 70-100 [facility] [place] Comment on above: Result Comment: NORMAL <100 mg/dL PREDIABETES 101-126 mg/dL DIABETES 126 mg/dL or higher Performed By: #### U MAC, UMIC #### Testing performed at [address] [address] Potassium [Moles/Vol] 3.1 mmol/L Low 3.5-5.1 [facility] [place] Comment on above: Performed By: #### U MAC, UMIC #### Testing performed at [address] [address] Protein [Mass/Vol] 7.6 g/dL Normal 6.3-8.2 [facility] [place] Comment on above: Performed By: #### U MAC, UMIC #### Testing performed at [address] [address] Sodium [Moles/Vol] 139 mmol/L Normal 137-145 [facility] [place] Comment on above: Performed By: #### U MAC, UMIC #### Testing performed at [address] [address] Urea nitrogen [Mass/Vol] 31 mg/dL High 7-20 [facility] [place] Comment on above: Performed By: #### U MAC, UMIC #### Testing performed at [address] [address] ESRon 06-25-2023 ESR (Bld) [Velocity] 7 mm/h Normal 0-30 [facility] [place] Comment on above: Performed By: #### U MAC, UMIC #### Testing performed at [address] [address] HEMOGLOBIN A1Con 06-25-2023 Glucose [Mass/Vol] 131 mg/dL Normal [facility] [place] Comment on above: Performed By: #### H A1CT #### Testing performed at [address] [address] HbA1c (Bld) [Mass fraction] 6.2 % High 0-6 [facility] [place] Comment on above: Result Comment: NORMAL <5.7% PREDIABETES 5.7-6.4% DIABETES 6.5% OR HIGHER Performed By: #### H A1CT #### Testing performed at [address] [address] HS CRPon 06-25-2023 HS CRP 3.8 mg/L High 1.0-3.0 [facility] [place] Comment on above: Performed By: #### U MAC, UMIC #### Testing performed at [address] [address] MRSA SCREENon 06-25-2023 MRSA DNA CHRISTOPHER+probe Ql (Unsp spec) Negative Normal NEGATIVE [facility] [place] Comment on above: Performed By: #### U MAC, UMIC #### Testing performed at [address] [address] STAPH AUREUS SCREEN Negative Normal NEGATIVE [facility] [place] Comment on above: Result Comment: TEST ING PERFORMED BY PCR Performed By: #### U MAC, UMIC #### Testing performed at [address] [address] PROTIMEon 06-25-2023 INR Coag (PPP) [Relative time] 1.23 {INR} High 0.85-1.10 [facility] [place] Comment on above: Result Comment: 2.0-3.0 THERAPEUTIC RANGE 2.5-3.5 MECHANICAL VALVE RANGE Performed By: #### U MAC, UMIC #### Testing performed at [address] [address] PT Coag (PPP) [Time] 15.6 s High 11.8-14.4 [facility] [place] Comment on above: Performed By: #### U MAC, UMIC #### Testing performed at [address] [address] TYPE AND SCREEN CROSSMATCH C ONVERTIBLEon 06-25-2023 TYPE AND SCREEN CROSSMATCH CONVERTIBLE UNITS ORDERED 2 WORKUP EXPIRES 07/10/2023,2359 ABO/RH(D) A POSITIVE ANTIBODY SCREEN NEGATIVE ARM BAND NUMBER [id number] Normal [facility] [place] Comment on above: Performed By: #### U MAC, UMIC #### Testing performed at [address] [address] URINE MACROSCOPICon 06-25-19 24 Bilirubin Ql (U) Negative Normal NEGATIVE [facility] Comment on above: Performed By: #### U MAC, UMIC #### Testing performed at [address] [address] Clarity (U) HAZY Abnormal CLEAR [facility] [place] Comment on above: Performed By: #### U MAC, UMIC #### Testing performed at [address] [place] [address] Color (U) YELLOW Normal YELLOW [facility] [place] Comment on above: Performed By: #### U MAC, UMIC #### Testing performed at [address] [address] Glucose Ql (U) Negative Normal NEGATIVE [facility] Comment on above: Performed By: #### U MAC, UMIC #### Testing performed at [address] [address] pH (U) 5.5 [pH] Normal 5.0-7.0 [facility] [place] Comment on above: Performed By: #### U MAC, UMIC #### Testing performed at [address] [address] URINE HEMOGLOBIN SMALL Abnormal NEGATIVE [facility] Comment on above: Performed By: #### U MAC, UMIC #### Testing performed at [address] [address] URINE KETONE Negative Normal NEGATIVE [facility] Comment on above: Performed By: #### U MAC, UMIC #### Testing performed at [address] [address] URINE LEUKOTEST SMALL Abnormal NEGATIVE [facility] Comment on above: Performed By: #### U MAC, UMIC #### Testing performed at [address] [address] URINE NITRATES Negative Normal NEGATIVE [facility] Comment on above: Performed By: #### U MAC, UMIC #### Testing performed at [address] [address] URINE SPEC GRAVITY 1.015 Normal 1.010-1.025 [facility] [place] Comment on above: Performed By: #### U MAC, UMIC #### Testing performed at [address] [address] URINE TOTAL PROTEIN Negative Normal NEGATIVE [facility] [place] Comment on above: Performed By: #### U MAC, UMIC #### Testing performed at [address] [address] Urobilinogen Qn (U) 0.2 {Zenia'U}/dL Normal 0.2-1.0 [facility] [place] Comment on above: Performed By: #### U MAC, UMIC #### Testing performed at [address] [address] URINE MICROSCOPICon 06-25-19 24 Bacteria LM.HPF (Urine sed) [#/Area] Negative Normal NEGATIVE [facility] [place] Comment on above: Performed By: #### U MAC, UMIC #### Testing performed at [place] [id number] CASTS NONE Normal NONE [facility]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 Performed By: #### 1 82189, 019732, 425299 ####[facility] [place] [facility] [address]zrpf[address] [place] [address] Medical Director: Fahad Cast MD Glucose [Mass/Vol] 98 mg/dL Normal 72-100 [facility] Comment on above: Result Comment: Sharon puncture should occur prior to sulfasalazine administration due to the potential for falsely depressed results. Venipuncture should occur prior to sulfapyridine administration due to the potential falsely elevated results. Baseline assay values before administration of sulfasalazine and sulfapyridine therapy would not be affected. Performed By: #### 1 25778, 478096, 243314 ####[facility] [place] [facility] [address]asbfs[address] [place] [address] [facility] Director: Fahad Cast MD Potassium [Moles/Vol] 4.2 mmol/L Normal 3.5-5.[address] [facility] Comment on above: Performed By: #### 1 66708, 106064, 972715 ####[facility] [place] [facility] [address] [place] [address] [facility] Director: Fahad Cast MD Sodium [Moles/Vol] 144 mmol/L Normal 135-145 [facility] Comment on above: Performed By: #### 1 30494, 981860, 870541 ####[facility] [place] [facility] [address]ccx[address] [place] [address] [facility] Director: Fahad Cast MD Urea nitrogen [Mass/Vol] 24 mg/dL High 10-[address] [facility] Comment on above: Performed By: #### 1 77243, 162609, 856152 ####[facility] [place] [facility] [address] [place] [address] [facility] Director: Fahad Cast MD CBCNDon 03-11-2020 Erythrocyte distribution width (RBC) [Ratio] 14.4 % Normal 11.5-14.[address] [facility] Comment on above: Performed By: #### 1 66680, 381859, 589897 #### [facility] [place] [facility] [address] [place] [address] Veneer Gluer: Fahad Cast MD Hematocrit (Bld) [Volume fraction] 33.9 % Low 36.0-46.[address] [facility] Comment on above: Performed By: #### 1 13533, 939992, 671878 #### [facility] [place] [facility] [address] [place] [address] Veneer Gluer: Fahad Cast MD Hemoglobin (Bld) [Mass/Vol] 11.2 g/dL Low 12.0-16.[address] [facility] Comment on above: Performed By: #### 1 42421, 364149, 098798 #### [facility] [place] [facility] [address] [place] [address] Veneer Gluer: Fahad Cast MD MCH (RBC) [Entitic mass] 29.5 pg Normal 27.0-34.[address] [facility] Comment on above: Performed By: #### 1 54716, 633505, 787136 #### [facility] [place] [facility] [address] [place] [address] Veneer Gluer: Fahad Cast MD MCHC (RBC) [Mass/Vol] 33.0 g/dL Normal 32.0-37.[address] [facility] Comment on above: Performed By: #### 1 57729, 462751, 778058 #### [facility] [place] [facility] [address] [place] [address] Veneer Gluer: Fahad Cast MD MCV (RBC) [Entitic vol] 89.5 fL Normal 80.0-100.[address] [facility] Comment on above: Performed By: #### 1 48903, 252838, 073597 #### [facility] [place] [facility] [address] [place] [address] Veneer Gluer: Fahad Cast MD Platelet mean volume (Bld) [Entitic vol] 6.8 fL Low 7.4-10.[address] [facility] Comment on above: Performed By: #### 1 77468, 856209, 968108 #### [facility] [place] [facility] [address] [place] [address] Veneer Gluer: Fahad Cast MD Platelets (Bld) [#/Vol] 232 x1000 Normal 150-[address] [facility] Comment on above: Performed By: #### 1 51375, 917449, 145028 #### [facility] [place] [facility] [address] [place] [address] Veneer Gluer: Fahad Cast MD RBC (Bld) [#/Vol] 3.79 x10 Low 4.20-5.40 [facility] Comment on above: Result Comment: Note : RBC morphology is normal unless otherwise stated. Evaluation performed only if differential is requested. Performed By: #### 1 85507, 512802, 111020 #### [facility] [place] [facility] [address] [place] [address] Veneer Gluer: Fahad Cast MD WBC (Bld) [#/Vol] 5.8 10*3/uL Normal [facility] Comment on above: Performed By: #### 1 59900, 751970, 609618 #### [facility] [place] [facility] [address] [place] [address] Veneer Gluer: Fahad Cast MD WBC (Bld) [#/Vol] 5.8 x10 Normal 4.5-11.0 [facility] Comment on above: Performed By: #### 1 62125, 695347, 218647 #### [facility] [place] [facility] [address] [place] [address] Veneer Gluer: Fahad Cast MD D Dimer HSon 03-11-2020 D Dimer HS 821 ng/mL FEU High <=[address] [facility] Comment on above: Result Comment: Excl usion of PE and DVT The D Dimer HS assay is reported in ng/ml Fibrinogen Equivalent Units (FEU). Per aircraft inspector?s instructions for use, a value less than 500ng/ml (FEU) may help to exclude DVT and /or PE in outpatients when the assay is used with a clinical pretest probability assessment. D-Dimer used for DIC Screens Assay results should be used with other information, including the clinical context in forming a diagnosis. Performed By: #### C [id number] ####[facility] [place] [facility] [address] [place] [address] Medical Director: Fahad Cast MD LDHon 03-11-2020 LDH 198 unit/L Normal 84-[address] [facility] Comment on above: Performed By: #### 1 56479, 991677, 879553 #### [facility] [place] [facility] [address] [place], [place] [address] Veneer Gluer: Fahad Cast MD Progress Note-Physicianon Progress Note-Physician [...] medications. 6) DVT ppx: On Eliquis Normal [facility] Utilization Review Noteon Utilization Review Note ID Consult pending DISCHARGE WRITTEN AND PLANNED. Normal [facility] AUTO DIFFon 03-10-2020 Basophils (Bld) [#/Vol] 0.05 x1000 Normal 0.00-0.[address] [facility] Comment on above: Performed By: #### 1 87839, 547436, 5614036 ####[facility] [place] [facility] [address] [id number] Medical Director: Fahad Cast MD Basos % 0.6 % Normal [facility] Comment on above: Performed By: #### 1 50044, 888376, 4514908 ####[facility] [place] [facility] [address] [place] [address] Medical Director: Fahad Cast MD Eos Count 0.15 x1000 Normal 0.00-0.[address] [facility] Comment on above: Performed By: #### 1 59718, 478624, 7022941 ####[facility] T[address] [place] [address] Medical Director: Fahad Cast MD Eosinophils/100 WBC (Bld) 1.8 % Normal [facility] Comment on above: Performed By: #### 1 88856, 003215, 4223519 ####[facility] [place] [facility] [address]ylj24516 [place] [address] Medical Director: Fahad Cast MD Lymphocytes (Bld) [#/Vol] 1.05 x1000 Low 1.20-4.[address] [facility] Comment on above: Performed By: #### 1 27971, 605146, 4116188 ####[facility] [place] [facility] [address]axm90[address] [place] [address] Medical Director: Fahad Cast MD Lymphocytes/100 WBC (Bld) 12.7 % Normal [facility] Comment on above: Performed By: #### 1 44026, 471681, 8078821 ####[facility] [place] [facility] [address]78[address] [place] [address] Medical Director: Fahad Cast MD [place] Count 0.70 x1000 Normal 0.10-1.[address] [facility] Comment on above: Performed By: #### 1 78603, 635868, 7650924 ####[facility] [place] [facility] [address] [place] [address] Medical Director: Fahad Cast MD Monocytes/100 WBC (Bld) 8.4 % Normal [facility] Comment on above: Performed By: #### 1 01622, 281322, 7855858 ####[facility] [address]b64[address] [place] [address] Medical Director: Fahad Csat MD Neutrophils (Bld) [#/Vol] 6.32 x1000 Normal 1.40-8.[address] [facility] Comment on above: Performed By: #### 1 30905, 670702, 1983344 ####[facility] [address]lb[address] [place], [place] [id number]) [phone] Director: Fahad Cast MD Neutrophils/100 WBC (Bld) 76.4 % Normal [facility] Comment on above: Performed By: #### 1 40270, 875007, 0892203 ####[facility] [place] [facility] [address] [place] [address] Medical Director: Fahad Cast MD COMPMETAon 03-10-2020 Albumin [Mass/Vol] 3.4 g/dL Normal 3.4-5.0 [facility] Comment on above: Performed By: #### 1 86485, 286860, 4448974 ####[facility] [place] [facility] [address] [place] [address] Medical Director: Faahd Cast MD Albumin/Globulin [Mass ratio] 0.8 {ratio} Normal [facility] Comment on above: Performed By: #### 1 , 819182, 6679119 ####[facility] [place] [facility] [address] [place] [address] Medical Director: Fahad Cast MD Alk Phos 71 unit/L Normal 45-[address] [facility] Comment on above: Performed By: #### 1 23588, 990765, 9667532 ####[facility] [place] [facility] [address] [place] [address] Medical Director: Fahad Cast MD Bilirubin [Mass/Vol] 0.37 mg/dL Normal 0.20-1.[address] [facility] Comment on above: Result Comment: Use of this assay is not recommended for patients undergoing treatment with eltrombopag due to the potential for falsely elevated results. Performed By: #### 1 01767, 432811, 2838442 ####[facility] [place] [facility] [address] [place] [address] Medical Director: Fahad Cast MD Calcium [Mass/Vol] 9.4 mg/dL Normal 8.5-10.5 [facility] Comment on above: Performed By: #### 1 20246, 011972, 8870842 ####[facility] [place] [facility] Legputbf35[address] [place] [address] Medical Director: Fahad Cast MD Chloride [Moles/Vol] 108 mmol/L Normal 100-[address] [facility] Comment on above: Performed By: #### 1 33831, 389338, 4131629 ####[facility] [place] [facility] [address]gnj55716 [place] [address] Medical Director: Fahad Cast MD CO2, venous 28.2 mmol/L Normal 21.0-32.[address] [facility] Comment on above: Performed By: #### 1 54793, 454587, 3950844 ####[facility] [place] [facility] [address] [place] [address] Medical Director: Fahad Cast MD Creatinine [Mass/Vol] 1.2 mg/dL High 0.6-1.[address] [facility] Comment on above: Performed By: #### 1 88572, 221849, 2915230 ####[facility] [place] [facility] [address] [place] [address] [facility] Director: Fahad Cast MD GFR AA 53 [facility] Comment on above: Result Comment: Afri can Maldivian GFR Calc Medical judgement is necessary to [...] for drug dosing. Performed By: #### 1 88120, 798620, 3588724 ####[facility] [place] [facility] [address] [id number]) [phone] Director: Fahad Cast MD GFR/1.73 sq M predicted among non-blacks MDRD (S/P/Bld) [Vol rate/Area] 44 mL/min/1.73m? Normal [facility] Comment on above: Result Comment: Non [...] for drug dosing. Performed By: #### 1 34245, 724549, 4690883 ####[facility] [place] [facility] [address]cf[address] [place], [place] [id number]) [phone] Director: Fahad Cast MD Globulin (S) [Mass/Vol] 4.0 g/dL Normal [facility] Comment on above: Performed By: #### 1 93501, 309708, 3943969 ####[facility] [place] [facility] [address] [place], [place] [id number]) [phone] Director: Fahad Cast MD Glucose [Mass/Vol] 143 mg/dL High 72-100 [facility] Comment on above: Result Comment: Sharon puncture should occur prior to sulfasalazine administration due to the potential for falsely depressed results. Venipuncture should occur prior to sulfapyridine administration due to the potential falsely elevated results. Baseline assay values before administration of sulfasalazine and sulfapyridine therapy would not be affected. Performed By: #### 1 43785, 887845, 8522890 ####[facility] [place] [facility] [address]kni[address] [place] [address] Medical Director: Fahad Cast MD GOT 18 unit/L Normal 15-[address] [facility] Comment on above: Result Comment: Sharon puncture should occur prior to sulfasalazine and/or sulfapyridine administration due to the potential for falsely depressed results. Baseline assay values before administration of sulfasalazine and sulfapyridine therapy would not be affected. Performed By: #### 1 44511, 746385, 7072157 ####[facility] [place] [facility] [address]icby[address] [place] [address] Medical Director: Fahad Cast MD GPT 19 unit/L Normal 13-[address] [facility] Comment on above: Result Comment: Sharon puncture should occur prior to sulfasalazine and/or sulfapyridine administration due to the potential for falsely depressed results. Baseline assay values before administration of sulfasalazine and sulfapyridine therapy would not be affected. Performed By: #### 1 10220, 978679, 7102758 ####[facility] [place] [facility] [address]swpcfbc940[address] [place] [address] Medical Director: Fahad Cast MD Osmolality [Osmolality] 293 mOsm/kg Normal 275-[address] [facility] Comment on above: Performed By: #### 1 18957, 969751, 4962302 ####[facility] [facility] [address] [place] [address] Medical Director: Fahad Cast MD Potassium [Moles/Vol] 4.0 mmol/L Normal 3.5-5.[address] [facility] Comment on above: Performed By: #### 1 68126, [id number], [id number] ####[facility] [address] [place] [address] Medical Director: Fahad Cast MD Protein [Mass/Vol] 7.4 g/dL Normal 6.0-8.5 [facility] Comment on above: Performed By: #### 1 79296, [id number], [id number] ####[facility] [address] [place] [address] Medical Director: Fahad Cast MD Sodium [Moles/Vol] 142 mmol/L Normal 135-145 [facility] Comment on above: Performed By: #### 1 01640, 588838, [id number] ####[facility] [address] [place] [address] Medical Director: Fahad Cast MD Urea nitrogen [Mass/Vol] 32 mg/dL High 10-[address] [facility] Comment on above: Performed By: #### 1 41177, 638987, [id number] ####[facility] [address] [place] [address] Medical Director: Fahad Cast MD Urea nitrogen/Creatinine [Mass ratio] 26.7 mg/mg Normal [facility] Comment on above: Performed By: #### 1 97807, 629674, [id number] ####[facility] [address] [place] [address] Medical Director: Fahad Cast MD COVID-19 by PCR SWEDon 03-10 COVID-19 by PCR SWED Positive Abnormal [facility] Comment on above: Result Comment: CALL ER COCO NG 03/10/2020 18:23:22 EST BY SHF; RBR Performed By: #### C [id number] ####[facility] [address] [place] [id number] [facility] Director: Fahad Cast MD CRP QUANTon 03-10-2020 C-Reactive Protein, Quantitative 0.8 mg/dL High 0.0-0.[address] [facility] Comment on above: Performed By: #### 1 88775, [id number], [id number] #### [facility] [address] [place] [address] Veneer Gluer: Fahad Cast MD CT ABD PELVIS W [...] by: Oni Liu MD 03/10/2020 3:50 PM SECURITY BUSINESS ANALYST Technologist: LIEN BLANCA Dictated By: ONI LIU MD Signed By: ONI LIU MD Signed Out: 03/10/20 16:50:[address] [facility] D Dimer HSon 03-10-2020 D Dimer HS 264 ng/mL FEU Normal <=[address] [facility] Comment on above: Result Comment: Excl usion of PE and DVT The D Dimer HS assay is reported in ng/ml Fibrinogen Equivalent Units (FEU). Per aircraft inspector?s instructions for use, a value less than 500ng/ml (FEU) may help to exclude DVT and /or PE in outpatients when the assay is used with a clinical pretest probability assessment. D-Dimer used for DIC Screens Assay results should be used with other information, including the clinical context in forming a diagnosis. Performed By: #### 1 63451, [id number], [id number], [id number] #### [facility] [address] [place] [id number] Veneer Gluer: Fahad Cast MD ED Physician Reporton 2019 [...] Line Saline Flush: 3 mL, IV Push, [id number] Documented Medications Documented Eliquis 5 mg oral [...] Interp, Sinus rhythm with first-degree AV block, NJ interval 256, QT/QTc/433, incomplete right bundle branch [...] /100WBC NA Lymph % 12.7 % NA [place] % 8.4 % NA Neutrophil % 76.4 % NA Eosin % 1.8 % NA Basos % 0.6 % NA Lymph Count 1.05 x1000 LOW [place] Count 0.70 x1000 NORMAL Neutrophil Count (ANC) [...] by: Monae Hernandez MD 03/10/2020 1:58 PM SECURITY BUSINESS ANALYST Signed By: MONAE HERNANDEZ MD CT [...] by: Oni Liu MD 03/10/2020 3:50 PM SECURITY BUSINESS ANALYST Signed By: ONI LIU MD . [...] Course: improving. Impression and Plan Diagnosis Syncope ([id number], Working, Medical) Plan Condition: Stable. Disposition: [...] accurately records my words and actions.. Normal [facility] ED Pre-Arrival Formon 2019 ED Pre-Arrival Form Pre-Arrival Summary Name: STR, Current Date: 03/10/2020 13:52:19 EST Gender: Date of : Age: Pre-Arrival Type: EMS ETA: 03/10/2020 14:15:00 EST Primary Care Physician: Presenting Problem: Pre-Arrival User: Neil Vázquez RN Referring Source: Location: [address] [place] [address] Emergency Department [address] [place] [address] ____ Notes: Vital Signs: Doctor Call Back: DNR Status: Miscellaneous Issues: Normal [facility] ED Progress Noteon 0 ED Progress Note report not put in by previous rn pt here for syncopal episode after diarrhea episode pt has hx of afib. pt covid+ report called to neil silva will come get pt Normal [facility] FERRITINon 03-10-2020 Ferritin [Mass/Vol] 32 ng/mL Normal 8-252 [facility] Comment on above: Performed By: #### 1 00985, [id number], [id number], [id number] #### [facility] [address] [place] [address] Veneer Gluer: Fahad Cast MD HEMOon 03-10-2020 DIFF? No Normal [facility] Comment on above: Performed By: #### 1 01839, 922709, [id number] ####[facility] [address] [place], [place] [id number]) [phone] Director: Fahad Cast MD Erythrocyte distribution width (RBC) [Ratio] 14.5 % Normal 11.5-14.[address] [facility] Comment on above: Performed By: #### 1 92428, 855401, [id number] ####[facility] [address]cs[address] [place], [place] [id number]) [phone] Director: Fahad Cast MD Hematocrit (Bld) [Volume fraction] 35.8 % Low 36.0-46.[address] [facility] Comment on above: Performed By: #### 1 40604, 698043, [id number] ####[facility] [address]q656[address] [place] [address] Medical Director: Fahad Cast MD Hemoglobin (Bld) [Mass/Vol] 11.7 g/dL Low 12.0-16.[address] [facility] Comment on above: Performed By: #### 1 22928, 665086, 3418699 ####[facility] [address] [place], [place] [id number]) [phone] Director: Fahad Cast MD MCH (RBC) [Entitic mass] 29.4 pg Normal 27.0-34.[address] [facility] Comment on above: Performed By: #### 1 48279, 122441, [id number] ####[facility] [address] [place] [address] Medical Director: Fahad Cast MD MCHC (RBC) [Mass/Vol] 32.7 g/dL Normal 32.0-37.[address] [facility] Comment on above: Performed By: #### 1 54302, 791639, [id number] ####[facility] [address] [place] [address] Medical Director: Fahad Cast MD MCV (RBC) [Entitic vol] 89.8 fL Normal 80.0-100.[address] [facility] Comment on above: Performed By: #### 1 70432, 436203, [id number] ####[facility] [address] [place] [address] Medical Director: Fahad Cast MD Nucleated RBC (Bld) [#/Vol] 0 /100WBC Normal [facility] Comment on above: Performed By: #### 1 91864, 190448, [id number] ####[facility] [address] [place] [address] Medical Director: Fahad Cast MD Platelet mean volume (Bld) [Entitic vol] 6.7 fL Low 7.4-10.[address] [facility] Comment on above: Performed By: #### 1 42164, 836471, 0925182 ####[facility] [address]dspxd[address] [place] [address] Medical Director: Fahad Cast MD Platelets (Bld) [#/Vol] 252 x1000 Normal 150-[address] [facility] Comment on above: Performed By: #### 1 66449, 909003, 9208122 ####[facility] [address] [place] [address] Medical Director: Fahad Cast MD RBC (Bld) [#/Vol] 3.99 x10 Low 4.20-5.40 [facility] Comment on above: Result Comment: Note : RBC morphology is normal unless otherwise stated. Evaluation performed only if differential is requested. Performed By: #### 1 71351, 212496, [id number] ####[facility] [address] [place] [address] Medical Director: Fahad Cast MD WBC (Bld) [#/Vol] 8.3 10*3/uL Normal [facility] Comment on above: Performed By: #### 1 88652, 061119, 9586789 ####[facility] [address] [place] [address] Medical Director: Fahad Cast MD WBC (Bld) [#/Vol] 8.3 x10 Normal 4.5-11.0 [facility] Comment on above: Performed By: #### 1 18618, 317514, 6062500 ####[facility] [address] [place] [address] Medical Director: Fahad Cast MD History and Physicalon 03-10 History and Physical Patient: EBTTIE BURNS Age: 74 years Sex: Female : [...] ppx: On Eliquis OT MESA on Normal [facility] LACTATEon 03-10-2020 Lactate [Moles/Vol] 1.8 mmol/L Normal 0.4-2.0 [facility] Comment on above: Performed By: #### 1 70076 #### [facility] [address] [place] [address] Veneer Gluer: Fahad Cast MD LIPon 03-10-2020 Lipase [Catalytic activity/Vol] 135 unit/L Normal 73-[address] [facility] Comment on above: Performed By: #### 1 82497, 315658, 399572 ####[facility] [address] [place] [address] Medical Director: Fahad Cast MD MG LEVELon 03-10-2020 Magnesium [Mass/Vol] 1.9 mg/dL Normal 1.6-2.[address] [facility] Comment on above: Performed By: #### 1 03310, 809096, 031565 ####[facility] [address] [place] [address] Medical Director: Fahad Cast MD PCTon 03-10-2020 Procalcitonin <0.[address] [facility] Comment on above: Result Comment: INTE [...] or septic shock. Performed By: #### 1 38443, [id number], [id number], [id number] #### [facility] [address] [place] [address] Veneer Gluer: Fahad Cast MD TROPONINon 03-10-2020 Troponin I.cardiac [Mass/Vol] ng/mL Normal 0.000-0.[address] [facility] Comment on above: Result Comment: This test is a quantitative determination of cardiac troponin I. High levels of serum biotin may interfere with this test. Performed By: #### 1 12864, 921752, 219986 ####[facility] [address] [place] [address] Medical Director: Fahad Cast MD XR CHEST [...] by: Monae Hernandez MD 03/10/2020 1:58 PM SECURITY BUSINESS ANALYST Technologist: THANG JAMES Dictated By: MONAE HERNANDEZ MD Signed By: MONAE HERNANDEZ MD Signed Out: 03/10/20 14:58:[address] [facility] Vital Signs Date Time Vital Sign Value Performing Clinician Facility 02-01-2024 11:13-0400 Body height 165.1 cm [facility] 02-01-2024 11:13-0400 Body mass index (BMI) [Ratio] 28.3 kg/m2 [facility] 02-01-2024 11:13-0400 Body weight 77.11 kg [facility] 02-01-2024 11:13-0400 Diastolic blood pressure 72 mm[Hg] [facility] 02-01-2024 11:13-0400 Heart rate 60 /min [facility] 02-01-2024 11:13-0400 Systolic blood pressure 134 mm[Hg] [facility] 11-26-2023 14:08-0400 Body height 165.1 cm Miko Ohara MD Work Phone: [facility] 11-26-2023 14:08-0400 Body mass index (BMI) [Ratio] 27.96 kg/m2 Miko Ohara MD Work Phone: [facility] 11-26-2023 14:08-0400 Body temperature 97 [degF] Miko Ohara MD Work Phone: [facility] 11-26-2023 14:08-0400 Body weight 76.2 kg Miko Ohara MD Work Phone: [facility] 10-28-2023 08:41-0400 Body height 165.1 cm [facility] 10-28-2023 08:41-0400 Body mass index (BMI) [Ratio] 27.9 kg/m2 [facility] 10-28-2023 08:41-0400 Body weight 76.2 kg [facility] 10-28-2023 08:41-0400 Diastolic blood pressure 68 mm[Hg] [facility] 10-28-2023 08:41-0400 Heart rate 58 /min [facility] 10-28-2023 08:41-0400 Systolic blood pressure 106 mm[Hg] [facility] 08-20-2023 14:38-0400 Body height 165.1 cm Divine [employer] Work Phone: [facility] [employer] [facility] 08-20-2023 14:38-0400 Body mass index (BMI) [Ratio] 27.96 kg/m2 Divine [employer] Work Phone: [facility] [employer] [facility] 08-20-2023 14:38-0400 Body weight 76.2 kg Divine [employer] Work Phone: [facility] [employer] [facility] 07-23-2023 14:45-0400 Body height 165.1 cm Divine LEHRabielZymeworks Work Phone: [employer] 07-23-2023 14:45-0400 Body mass index (BMI) [Ratio] 27.96 kg/m2 Divineeli [employer] Work Phone: [employer] [facility] 07-23-2023 14:45-0400 Body weight 76.2 kg Divine [employer] Work Phone: [employer] [facility] 2023 15:34-0500 Body temperature 97.9 [degF] Miko Ohara MD Work Phone: [employer] [facility] 2023 15:34-0500 Diastolic blood pressure 53 mm[Hg] Miko Ohara MD Work Phone: [employer] [facility] 2023 15:34-0500 Heart rate 80 /min Miko Ohara MD Work Phone: [employer] [facility] 2023 15:34-0500 Respiratory rate 16 /min Miko Ohara MD Work Phone: [facility] 2023 15:34-0500 SaO2% (BldA) [Mass fraction] 98 % Miko Ohara MD Work Phone: [facility] 2023 15:34-0500 Systolic blood pressure 110 mm[Hg] Miko Ohara MD Work Phone: [facility] 07-07-2023 16:39-0500 Body height 165.1 cm Miko Ohara MD Work Phone: [facility] 07-07-2023 16:39-0500 Body mass index (BMI) [Ratio] 28.02 kg/m2 Miko Ohara MD Work Phone: [facility] 07-07-2023 16:39-0500 Body weight 76.39 kg Miko Ohara MD Work Phone: [facility] 06-18-2023 14:31-0500 Body height 165.1 cm Miko Ohara MD Work Phone: [facility] 06-18-2023 14:31-0500 Body mass index (BMI) [Ratio] 28.12 kg/m2 Miko Ohara MD Work Phone: [facility] 06-18-2023 14:31-0500 Body weight 76.66 kg Miko Ohara MD Work Phone: [facility] 06-02-2023 11:19-0500 Body height 165.1 cm Donna Diaz MD Work Phone: [facility] [employer] [facility] 06-02-2023 11:19-0500 Body mass index (BMI) [Ratio] 28.12 kg/m2 Donna Diaz MD Work Phone: [facility] [employer] [facility] 06-02-2023 11:19-0500 Body weight 76.66 kg Donna Diaz MD Work Phone: [facility] [employer] [facility] 06-02-2023 11:19-0500 Diastolic blood pressure 68 mm[Hg] Donna Diaz MD Work Phone: [employer] 06-02-2023 11:19-0500 Heart rate 62 /min Donna Diaz MD Work Phone: [employer] 06-02-2023 11:19-0500 SaO2% (BldA) [Mass fraction] 99 % Donna Diaz MD Work Phone: [employer] 06-02-2023 11:19-0500 Systolic blood pressure 106 mm[Hg] Donna Diaz MD Work Phone: [employer] 05-14-2023 09:38-0500 Body height 165.1 cm Miko Ohara MD Work Phone: [employer] 05-14-2023 09:38-0500 Body mass index (BMI) [Ratio] 29.12 kg/m2 Miko Ohara MD Work Phone: [employer] 05-14-2023 09:38-0500 Body temperature 98.2 [degF] Miko Ohara MD Work Phone: [employer] 05-14-2023 09:38-0500 Body weight 79.38 kg Miko Ohara MD Work Phone: [employer] 10-30-2022 14:45-0400 Body height 165.1 cm Elliot Starks Other [employer] Other 10-30-2022 14:45-0400 Body mass index (BMI) [Ratio] 28.4 kg/m2 Elliot Starks Other [employer] Other 10-30-2022 14:45-0400 Body weight 77.43 kg Elliot Starks Other [employer] Other 10-30-2022 14:45-0400 Diastolic blood pressure 66 mm[Hg] Elliot Starks Other [employer] Other 10-30-2022 14:45-0400 Systolic blood pressure 123 mm[Hg] Elliot Starks Other [employer] Other 06-04-2022 11:30-0500 Body height 165.1 cm Elliot Starks Other [employer] Other 06-04-2022 11:30-0500 Body mass index (BMI) [Ratio] 28.29 kg/m2 Elliot Starks Other [employer] Other 06-04-2022 11:30-0500 Body weight 77.11 kg Elliot Stakrs Other [employer] Other 06-04-2022 11:30-0500 Diastolic blood pressure 64 mm[Hg] Elliot Starks Other [employer] Other 06-04-2022 11:30-0500 SaO2% (BldA) [Mass fraction] 99 % Elliot Starks Other [employer] Other 06-04-2022 11:30-0500 Systolic blood pressure 104 mm[Hg] Elliot Starks Other [employer] Other Encounters Encounter Date Encounter Type Care Provider Facility Start: 06-01-2024 ambulatory Alfreda Miller Facility:[facility] Start: 02-01-2024 End: 02-01-2024 ambulatory [facility] Work Phone: Start: 02-01-2024 End: 02-01-2024 Patient encounter procedure [facility] Work Phone: Start: 12-14-2023 End: 12-14-2023 ambulatory Daisy Liz MD Facility:[facility] Start: 11-26-2023 End: 11-26-2023 Office outpatient visit 15 minutes Miko Ohara MD Work Phone: [facility] Comment on above: Hx of total hip arth roplasty, right (Primary Dx) Start: 11-26-2023 End: 11-26-2023 Subsequent hospital visit by physician Miko Ohara MD Work Phone: [facility] Start: 10-28-2023 End: 10-28-2023 ambulatory [facility] Work Phone: Start: 10-28-2023 End: 10-28-2023 Patient encounter procedure [facility] Work Phone: Start: 09-30-2023 End: 10-01-2023 ambulatory ANDREW CHOI [facility] Start: 09-17-2023 Telephone encounter Matt Duron Hematology/Oncology Comment on above: Yearly Exam With Shane rodriguez Start: 08-20-2023 End: 08-20-2023 Subsequent hospital visit by physician Divine Mahmood Work Phone: [facility] Start: 08-20-2023 ambulatory [facility] Start: 08-20-2023 End: 08-20-2023 Postop follow up visit related to original px Divine Mahmood Work Phone: [facility] Comment on above: Right hip pain (Prim hayden Dx) Start: 08-20-2023 ambulatory [facility] Start: 08-12-2023 End: 08-12-2023 ambulatory MIKO Malini VASQUEZ [facility] Start: 07-23-2023 End: 07-23-2023 Postop follow up visit related to original px Divine Mahmood Work Phone: [facility] Comment on above: Tear of gluteus mini mus tendon, right, initial encounter (Primary Dx) Start: 07-23-2023 End: 07-23-2023 Subsequent hospital visit by physician Divine Mahmood Work Phone: [facility] Start: 07-23-2023 ambulatory [facility] Start: 07-17-2023 Refill Mike galloway MD Work Phone: [facility] Comment on above: Med Refill Start: 07-15-2023 End: 07-16-2023 Emergency department patient visit EILEEN BLANTON [facility] Start: 07-15-2023 Telephone encounter [facility] Start: 07-15-2023 End: 07-15-2023 Emergency department patient visit ELLIOT Nayak [facility] Start: 07-07-2023 End: 2023 Encounter for other preprocedural examination [facility] Start: 07-07-2023 End: 2023 Evaluation and management of inpatient Miko Ohara MD Work Phone: [facility] Comment on above: Status post revision of total hip Start: 07-07-2023 End: 2023 Patient encounter status Miko Ohara MD Work Phone: [facility] Start: 07-01-2023 Patient encounter status [facility] Start: 06-25-2023 ambulatory [facility] Start: 06-19-2023 Telephone encounter Jacqueline Sparrow RN [facility] Comment on above: Pre op clearance Start: 06-18-2023 End: 06-18-2023 Office outpatient visit 40 minutes Miko Ohara MD Work Phone: [facility] Comment on above: Right hip pain (Prim hayden Dx) Start: 06-18-2023 ambulatory [facility] Start: 06-08-2023 End: 06-08-2023 ambulatory Daisy Liz MD Facility:[facility] Start: 06-02-2023 End: 06-02-2023 Office outpatient visit 25 minutes Donna Diaz MD Work Phone: [facility] Comment on above: Paroxysmal atrial fi brillation (CMS-HCC) (Primary Dx); Primary hypertension; Chronic coronary artery disease Start: 06-02-2023 End: 06-02-2023 ambulatory DONNA DIAZ [facility] Start: 06-01-2023 ambulatory [facility] Start: 05-28-2023 ambulatory PAULA [facility] Start: 05-27-2023 End: 05-28-2023 ambulatory Alfreda Miller Facility:[facility] Start: 05-25-2023 End: 05-25-2023 ambulatory Daisy Liz MD Facility:[facility] [place] Start: 05-18-2023 End: 05-18-2023 ambulatory Daisy Liz MD Facility:[facility] Start: 05-14-2023 ambulatory [facility] Start: 05-14-2023 End: 05-14-2023 Office outpatient new 30 minutes Miko Ohara MD Work Phone: [facility] Comment on above: Pain in prosthetic j oint, initial encounter (Primary Dx); Primary osteoarthritis of right hip Start: 05-14-2023 End: 05-14-2023 Subsequent hospital visit by physician Miko Ohara MD Work Phone: [facility] Start: 05-14-2023 ambulatory [facility] Start: 03-30-2023 (Televisit) Televisit Elliot Dela Cruz [facility] Start: 03-30-2023 End: 03-30-2023 ambulatory Elliot Starks Other [employer] Other Start: 02-11-2023 End: 02-12-2023 ambulatory Alfreda Miller Facility:[facility] Start: 02-11-2023 End: 02-11-2023 Patient encounter procedure Alfreda Miller [facility] Start: 12-29-2022 Preoperative state Donna franks MD Work Phone: [facility] Start: 11-17-2022 End: 11-17-2022 ambulatory Elliot Starks Other [employer] Other Start: 11-17-2022 Telephone encounter Elliot Starks [facility] Start: 11-06-2022 ambulatory Alfreda Miller Facility:[facility] Start: 10-30-2022 End: 10-30-2022 ambulatory Elliot Starks Other [employer] Other Start: 10-30-2022 Office outpatient vi sit 15 minutes Elliot Starks [facility] Start: 10-29-2022 End: 10-29-2022 ambulatory Elliot Starks Other [employer] Other Start: 10-29-2022 Telephone encounter Elliot Starks [facility] Start: 10-27-2022 Nursing evaluation o f patient and report Elliot Starks [facility] Start: 10-27-2022 End: 10-27-2022 ambulatory Elliot Starks [employer] Other Start: 10-27-2022 End: 10-27-2022 Departed Referred MD Elliot Starks Work Phone: [facility] Work Phone: Start: 09-11-2022 Telephone encounter Matt Duron Hematology/Oncology Comment on above: Orders Start: 08-11-2022 End: 08-11-2022 ambulatory Elliot Starks Other [employer] Other Start: 08-11-2022 Nursing evaluation o f patient and report Elliot Starks [facility] Start: 07-17-2022 (Televisit) Televisit Elliot Dela Cruz [facility] Start: 07-17-2022 End: 07-17-2022 ambulatory Elliot Starks Other [employer] Other Start: 06-23-2022 End: 06-23-2022 ambulatory Elliot Starks Other [employer] Other Start: 06-23-2022 Nursing evaluation o f patient and report Elliot Starks [facility] Start: 06-09-2022 End: 06-09-[address] ELLIOT STARKS Facility:[facility] Start: 06-06-2022 End: 06-06-2022 ambulatory Elliot Starks Other [employer] Other Start: 06-06-2022 Telephone encounter Elliot Starks [facility] Start: 06-04-2022 End: 06-04-2022 ambulatory Elliot Starks Other [employer] Other Start: 06-04-2022 Office outpatient vi sit 25 minutes Elliot Starks [facility] Start: 05-21-2022 End: 05-21-2022 ambulatory Elliot Starks Other [employer] Other Start: 05-21-2022 Telephone encounter Elliot Starks [facility] Start: 04-26-2022 End: 04-26-[address] ELLIOT STARKS Facility: Start: 04-14-2022 End: 04-14-[address] ELLIOT STARKS Facility: Start: 12-18-2021 End: 12-18-2021 ambulatory Melchor Goff [place] Facility:[facility] [place] Start: 10-03-2021 Telephone encounter Andrew black MD Work Phone: Hematology/Oncology Comment on above: Lab Orders Start: 09-26-2021 Telephone encounter Mikaela jimenez RN Work Phone: Hematology/Oncology Comment on above: Radiology Mammogram Start: 12-02-2016 End: 12-03-2016 Ambulatory DEFAULT PHYSICIAN Facility:[facility] Procedures Date Procedure Procedure Detail Performing Clinician Start: 2023 Basic metabolic pane l calcium total Chance Mahoney MD Work Phone: Start: 2023 Complete blood count with white cell differential, automated Paula Fitzpatrick IT SENIOR ANALYST-MANAGER INSPECTION Work Phone: Start: 07-07-2023 Cultyp nuc acid amp prb cult/isolate ea orgnism Chance Mahoney MD Work Phone: Start: 07-07-2023 Radiologic examinati on pelvis 1/2 views Paula Fitzpatrick IT SENIOR ANALYST-MANAGER INSPECTION Work Phone: Start: 07-07-2023 Cell count miscellan [...] 07-07-2023 Blood group typing, RH phenotyping Larissa FIGUEROA-C Work Phone: Start: 06-02-2023 Ecg routine ecg [...] Cardiac ablation sys tem (physical object) Alfreda Moraese Cholecystectomy Alfreda Lue Insertion of hip prosthesis Alfreda Moraese Lumpectomy of left breast Ka gonsalo Miller Rotator cuff includi ng muscles and tendons (body structure) Alfreda Miller Screening for malign ant neoplasm of breast Elliot Starks Other Total abdominal hysterectomy Alfreda Miller Plan of Treatment Date Care Activity Detail Author Start: 07-14-2024 Tobacco Screening Tobacco Screening [facility] Start: 07-14-2024 End: 07-14-2024 Patient encounter procedure 07/14/2024 11:20 AM EDT Office Visit [facility] [address] [place] [id number] Miko Ohara MD [address] [place] [address] [facility] Start: 07-07-2024 Potassium [Moles/vol ume] in Serum or Plasma POTASSIUM [facility] Start: 06-02-2024 Adult BMI Screening Adult BMI Screen ing [facility] Start: 06-02-2024 Tobacco Screening Tobacco Screening [facility] Start: 01-03-2024 Influenza vaccination [facility] Start: 11-26-2023 End: 11-26-2023 Patient encounter procedure 11/26/2023 2:00 PM EDT Office Visit [facility] [address] [place] [address] Miko Ohara MD [address] [place] [address] [facility] Start: 10-09-2023 DIABETES SCREEN DIABETES SCREEN [facility] Start: 10-09-2023 Diabetes Screening Diabetes Screenin g [facility] Start: 08-20-2023 End: 08-20-2023 Patient encounter procedure 08/20/2023 2:30 PM EDT Office Visit [facility] [address] [place] [address] Divine Mahmood [address] [place] [address] [facility] Start: 08-12-2023 End: 08-12-2023 Patient encounter procedure 08/12/2023 8:00 AM EDT Office Visit [facility] [address] [address] Miko Vasquez, IT SENIOR ANALYST-MANAGER INSPECTION [address] [place] [address] [facility] Start: 07-23-2023 End: 07-23-2023 Patient encounter procedure 07/23/2023 2:30 PM EDT Office Visit [address] [address] Divine Mahmood [address] [place] [address] [facility] Start: 07-07-2023 End: 07-07-2023 Evaluation and management of inpatient [facility] Comment on above: Tear of rotator [...] initial encounter 07/07/2023 12:25 PM EST [facility] Start: 06-25-2023 End: 06-25-2023 Admission to establishment 06/25/2023 10:00 AM EST Pre-Operative Nurse Assessment [facility] Pre Admission [address] [place] [address] Pre-op testing (Primary Dx); Essential (primary) hypertension; Abnormal finding of blood chemistry, unspecified; Abnormal coagulation profile [facility] Pre Admission Comment on above: Pre-op testing (Prim hayden Dx); Essential (primary) hypertension; Abnormal finding of blood chemistry, unspecified; Abnormal coagulation profile Start: 05-28-2023 End: 05-28-2023 Patient encounter procedure 05/28/2023 11:00 AM EST Office Visit [facility] [address] [facility] [place] [address] Antelmo Richey DO [address] [place] [address] [facility] Start: 05-14-2023 End: 05-14-2024 MR Hip - right WO contrast MRI HIP RIGHT WITHOUT CONTRAST Imaging Routine Pain in prosthetic joint, initial encounter Expected: 05/14/2023, Expires: 05/14/2024 [facility] Comment on above: Expected: 05/14/2023 , Expires: 05/14/2024 Start: 05-04-2023 Advance Directive Discussion Advance Directive Discussion [facility] Start: 05-04-2023 Behavioral Health Screening Behavioral Health Screening [facility] Start: 01-02-2023 Covid-19 Vaccine ( season) Covid-19 Vaccine ( season) [facility] Start: 01-02-2023 COVID-19 VACCINE ( season) COVID-19 VACCINE () [facility] Start: 01-02-2023 Influenza vaccination INFLUENZA (Sea son Ended) [facility] Start: 10-27-2022 Bacteria identified in Urine by Culture [facility] Start: 05-04-2022 ADVANCE DIRECTIVE DISCUSSION ADVANCE DIRECTIVE DISCUSSION [facility] Start: 05-04-2022 DEPRESSION ASSESSMENT DEPRESSION ASS ESSMENT [facility] Start: 04-08-2022 Screening for malign ant neoplasm of colon Colonoscopy [facility] Start: 01-02-2022 Influenza vaccination INFLUENZA (Sea son Ended) [facility] Start: 10-07-2021 End: 12-07-2021 Cancer Ag 27-29 [Units/volume] in Serum or Plasma CA 27.29 BLOOD Lab Routine Malignant neoplasm of upper-outer quadrant of left breast in female, estrogen receptor positive (HCC) Expected: 10/07/2021, Expires: 12/07/2021 [facility] Work Phone: Comment on above: Expected: 10/07/2021 , Expires: 12/07/2021 Start: 10-07-2021 End: 12-07-2021 CBC W Auto Differential panel - Blood CBC + DIFF Lab Routine Malignant neoplasm of upper-outer quadrant of left breast in female, estrogen receptor positive (HCC) Expected: 10/07/2021, Expires: 12/07/2021 [facility] Work Phone: Comment on above: Expected: 10/07/2021 , Expires: 12/07/2021 Start: 10-07-2021 End: 12-07-2021 Comprehensive metabolic 2000 panel - Serum or Plasma COMP METABOLIC PANEL Lab Routine Malignant neoplasm of upper-outer quadrant of left breast in female, estrogen receptor positive (HCC) Expected: 10/07/2021, Expires: 12/07/2021 [facility] Work Phone: Comment on above: Expected: 10/07/2021 , Expires: 12/07/2021 Start: 09-25-2021 Mammography MAMMOGRAM [facility] Start: 05-04-2021 ADVANCE DIRECTIVE DISCUSSION ADVANCE DIRECTIVE DISCUSSION [facility] Start: 11-17-2020 COVID-19 VACCINE (3 - Booster for Pfizer series) COVID-19 VACCINE (3 - Booster for Pfizer series) [facility] Start: 10-06-2020 Adult depression screening assessment DEPRESSION SCREENING [facility] Start: 08-15-2020 COVID-19 VACCINE (3 - Booster for Pfizer series) COVID-19 VACCINE (3 - Booster for Pfizer series) [facility] Start: 01-05-2019 Pneumococcal Vaccine : 65+ (2 of 2 - PCV) Pneumococcal Vaccine: 65+ (2 of 2 - PCV) [facility] Start: 01-05-2019 PNEUMOCOCCAL: 65+ (2 - PCV) PNEUMOCOCCAL: 65+ (2 - PCV) [facility] Start: 07-07-2012 BONE DENSITY BONE DENSITY [facility] Start: 07-07-2012 Fall Risk Screening Fall Risk Screen ing [facility] Start: 07-07-2012 Screening for osteoporosis Bone Density Screening [facility] Start: 2007 RSV Vaccine (1 - 1-d ose 60+ series) RSV Vaccine (1 - 1-dose 60+ series) [facility] Start: 07-07-1997 Administration of varicella zoster vaccine Zoster (Shingles) Vaccine (1 of 2) [facility] Start: 07-07-1997 SHINGRIX VACCINE (1 of 2) SHINGRIX VACCINE (1 of 2) [facility] Start: 07-07-1997 Zoster vaccine hzv l david for subcutaneous use ZOSTER (SHINGLES) VACCINE (1 of 2) [facility] Start: 07-07-1992 COLOGUARD (FIT-DNA) COLOGUARD (FIT-D NA) [facility] Start: 07-07-1992 Colonoscopy COLONOSCOPY [facility] Start: 07-07-1992 COLORECTAL CANCER SCREENING COLORECTAL CANCER SCREENING [facility] Start: 07-07-[address] COLONOGRAPHY [facility] Start: 07-07-1992 FECAL OCCULT BLOOD FECAL OCCULT BLOO D [facility] Start: 07-07-1992 LIPID SCREEN LIPID SCREEN [facility] Start: 07-07-1992 Screening for malign ant neoplasm of colon COLORECTAL CANCER SCREENING DISCUSSION [facility] Start: 07-07-1992 SIGMOIDOSCOPY SIGMOIDOSCOPY [facility] Start: 1987 Lipid panel LIPID SCREENING [facility] Start: 1987 Screening for malign ant neoplasm of breast MAMMOGRAM SCREENING DISCUSSION [facility] Start: 07-07-1968 Screening for malign ant neoplasm of cervix CERVICAL CANCER SCREENING DISCUSSION [facility] Start: 07-07-1966 DTaP,Tdap and Td Vaccines (1 - Tdap) DTaP,Tdap and Td Vaccines (1 - Tdap) [facility] Start: 07-07-1966 Third diphtheria, tetanus and acellular pertussis (DTaP) vaccination TDAP (ADULT) [facility] Start: 07-07-1966 Urine microalbumin profile [facility] Start: 07-07-1965 Adult BMI Follow Up Plan Adult BMI F ollow Up Plan [facility] Start: 07-07-1965 HEPATITIS C SCREENING HEPATITIS C SC REENING [facility] Start: 1959 Depression Screening Depression Scre ening [facility] Start: 07-07-1953 PNEUMOCOCCAL: 65+ (1 - PCV) PNEUMOCOCCAL: 65+ (1 - PCV) [facility] Start: 1945 Hepatitis C screening HEPATITI S C VIRUS SCREENING [facility] Start: 1945 Medicare Annual Well ness Visit Medicare Annual Wellness Visit [facility] Start: 1945 Potassium [Moles/vol ume] in Serum or Plasma POTASSIUM [facility] Start: 1945 Screening for osteoporosis DEXA SCAN DISCUSSION [facility] Start: 1945 Tetanus vaccination TETANUS [facility] ANAEROBE CULTURE [facility] Comment on above: Release Upon Orderin g for 1 Occurrences starting 07/07/2023 Bacterial culture an d sensitivity CULTURE WOUND Microbiology Routine 07/07/2023 2:27 PM EST [facility] BODY FLUID CELL COUNT BODY FLUID CELL COUNT Fluids Routine Tear of rotator cuff of right hip, initial encounter 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, initial encounter Release Upon Ordering for 1 Occurrences starting 07/07/2023 [facility] [employer] Comment on above: Release Upon Orderin g for 1 Occurrences starting 07/07/2023 End: 10-16-2024 DBT Breast - bilateral screening SHANE SCREENING W YAW Radiology Routine Encounter for screening mammogram for malignant neoplasm of breast 1 Occurrences starting 09/17/2023 until 10/16/2024 [facility] Work Phone: Comment on above: 1 Occurrences starti ng 09/17/2023 until 10/16/2024 End: 07-07-2023 Fungus identified in Unspecified specimen by Culture [facility] Comment on above: Release Upon Orderin g for 1 Occurrences starting 07/07/2023 One Time for 1 Occur rences starting 07/07/2023 until 07/07/2023 End: 10-26-2022 SHANE SCREENING W YAW SHANE SCREENING W YAW Radiology Routine Encounter for screening mammogram for malignant neoplasm of breast 1 Occurrences starting 09/26/2021 until 10/26/2022 [facility] Work Phone: Comment on above: 1 Occurrences starti ng 09/26/2021 until 10/26/2022 End: 10-11-2023 SHANE SCREENING W YAW SHANE SCREENING W YAW Radiology Routine Encounter for screening mammogram for malignant neoplasm of breast 1 Occurrences starting 09/11/2022 until 10/11/2023 [facility] Work Phone: Comment on above: 1 Occurrences starti ng 09/11/2022 until 10/11/2023 End: 07-07-2023 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 [employer] [facility] Comment on above: Release Upon Orderin g for 1 Occurrences starting 07/07/2023 One Time for 1 Occur rences starting 07/07/2023 until 07/07/2023 XR Pelvis and Hip - right Views XR HIP WITH PELVIS RIGHT Imaging Routine Primary osteoarthritis of right hip 05/14/2023 9:[address] [facility] [employer] Work Phone: XR Pelvis and Hip - right Views XR HIP WITH PELVIS RIGHT Imaging Routine Tear of gluteus minimus tendon, right, initial encounter 07/23/2023 2:22 PM EDT [employer] XR Pelvis and Hip - right Views XR HIP WITH PELVIS RIGHT Imaging Routine Right hip pain 08/20/2023 3:17 PM EDT [employer] XR Pelvis and Hip - right Views XR HIP WITH PELVIS RIGHT Imaging Routine Hx of total hip arthroplasty, right 11/26/2023 1:53 PM EDT [employer] [facility] Immunizations Immunization Date Immunization Notes Care Provider [facility] 02-10-2023 influenza virus vaccine, unspecified formulation Alfreda Miller [facility] 02-01-2022 influenza virus vaccine, unspecified formulation Alfreda Miller [facility] 08-13-2021 SARS-CoV-2 mRNA (unnnkqvdujc-vxei-rydzp se) vaccine Alfreda Miller [facility] 01-29-2021 SARS-CoV-2 (COVID-19 ) mRNA BNT-162b2 vax Alfreda Lue [facility] Comment on above: Result Comment: 2022: [id number] 06-20-2020 COVID-19 vaccine, ag e 12+ yr (PFIZER-BIONTECH - PURPLE TOP) Mikaela Thompson RN Work Phone: [facility] 05-28-2020 SARS-CoV-2 (COVID-19 ) mRNA BNT-162b2 vax Alfreda Lue [facility] 05-18-2020 COVID-19 vaccine, ag e 12+ yr (PFIZER-BIONTECH - PURPLE TOP) Mikaela Thompson RN Work Phone: [facility] 01-27-2020 influenza virus vaccine, split virus (incl. purified surface antigen) Elliot Starks Other [employer] Other 01-27-2020 influenza virus vaccine, unspecified formulation Alfreda Lue [facility] 01-20-2019 influenza virus vaccine, unspecified formulation Alfreda Lue [facility] 01-20-2019 influenza, high dose seasonal, preservative-free Mikaela Thompson RN Work Phone: [facility] 03-09-2018 influenza virus vaccine, unspecified formulation Alfreda Lue [facility] 01-05-2018 influenza virus vaccine, split virus (incl. purified surface antigen) Elliot Starks Other [employer] Other 01-05-2018 influenza virus vaccine, unspecified formulation Alfreda Lue [facility] 01-05-2018 influenza, high dose seasonal, preservative-free Mikaela Thompson RN Work Phone: [facility] 01-05-2018 pneumococcal polysaccharide vaccine, 23 valent Mikaela Thompson RN Work Phone: [facility] 02-25-2017 influenza virus vaccine, unspecified formulation Alfreda Lue [facility] 02-17-2017 pneumococcal polysaccharide vaccine, 23 valent Alfreda Lue [facility] 02-05-2017 influenza virus vaccine, split virus (incl. purified surface antigen) Elliot Starks Other [employer] Other 02-05-2017 influenza virus vaccine, unspecified formulation Alfreda Lue [facility] 02-05-2017 pneumococcal conjuga te vaccine, 13 valent Alfreda Lue [facility] 02-01-2002 pneumococcal polysaccharide vaccine, 23 valent Elliot Starks Other [facility] Payers Date Payer Category Payer Private Health Insurance 2022 Self-pay 2014 Medicare AETNA MEDICARE A ETNA MEDICARE PPO [id number] 2014-Present [phone] [address] [place] [address] PPO [id number] 2014 Medicare [id number] 1959 Medicare [id number] 1947 Unknown [id number] 2.16.840.1.374792.3.579.2.5 93 -1948 Unknown [id number] 2.16.840.1.146255.3.579.2.5 93 194 Unknown [id number] 2.16.840.1.923835.3.579.2.5 93 194 Unknown [id number] 2.16.840.1.521502.3.579.2.7 18 1947 Unknown [id number] 2.16.840.1.566599.3.579.2.7 27 1947 Unknown [id number] 2.16.840.1.138555.3.579.2.7 27 1947 Unknown [id number] 2.16.840.1.566549.3.579.2.7 27 1947 Unknown [id number] 2.16.840.1.287392.3.579.2.1 286 1947 Unknown [id number] 2.16.840.1.659548.3.579.2.1 286 1947 Unknown [id number] 2.16.840.1.251042.3.579.2.1 286 1947 Unknown [id number] 2.16.840.1.131731.3.579.2.1 286 1947 Unknown [id number] 2.16.840.1.881917.3.579.2.1 286 1947 Unknown [id number] 2.16.840.1.322962.3.579.2.9 83 1947 Unknown [id number] 2.16.840.1.873859.3.579.2.9 83 1947 Unknown [id number] 2.16.840.1.582199.3.579.2.9 83 1947 Unknown [id number] 2.16.840.1.669767.3.579.2.9 83 -1948 Unknown [id number] 2.16.840.1.220670.3.579.2.9 83 -194 Unknown [id number] 2.16.840.1.281238.3.579.2.9 83 -194 Unknown [id number] 2.16.840.1.026635.3.579.2.9 83 194 Unknown [id number] 2.16.840.1.084599.3.579.2.9 83 -194 Unknown [id number] 2.16.840.1.718100.3.579.2.9 83 1947 Unknown [id number] 2.16.840.1.031805.3.579.2.9 83 194 Unknown [id number] 2.16.840.1.872187.3.579.2.9 83 -194 Unknown [id number] 2.16.840.1.235382.3.579.2.9 83 - Unknown [id number] 2.16.840.1.037357.3.579.2.1 96 - Unknown [id number] 2.16.840.1.413309.3.579.2.1 96 1947 Unknown [id number] 2.16.840.1.585489.3.579.2.1 96 1947 Unknown [id number] 2.16.840.1.458633.3.579.2.1 96 Private Health Insurance [employer] [facility] PFFS M [id number] Unknown Unknown [id number] 2.16.840.1.895469.3.579.2.5 31 Social History Date Type Detail Facility Start: 12-03-2015 End: 12-06-2015 Tobacco smoking status [facility] Ex-smoker [facility] End: 12-05-1990 History of tobacco use Current smoker [facility] Start: 12-03-2015 End: 07-07-2023 Cigarettes smoked current (pack per day) - Reported 1 [facility] Start: 12-03-2015 End: 05-14-2023 Tobacco use and exposure Smokeless tobacco non-user [facility] Start: 10-08-2020 End: 11-26-2023 Alcohol intake Current drinker of alcohol (finding) [facility] Start: 1945 Sex Assigned At Not on file C [facility] Start: 05-14-2023 End: 07-07-2023 Sex Assigned At [facility] End: 12-05-1990 History of tobacco use Cigarette Smoker [facility] Start: 1945 Sex Assigned At Female F [facility] Tobacco smoking status Never [facility] Start: 05-14-2023 Tobacco smoking stat us NHIS Never smoked tobacco [facility] [employer] [facility] Start: 03-31-2022 Tobacco Comment quit in 1989 [facility] [employer] [facility] Start: 03-19-2017 End: 06-19-2023 Alcohol Comment social [facility] Start: 05-09-2018 Gender identity Identifies as female gender (finding) [facility] Has the [employer], or water company threatened to shut off services in your home in past 12Mo No [employer] (I/We) worried wheth er (my/our) food would run out before (I/we) got money to buy more. Never true [employer] [facility] Medical Equipment Procedure Code Equipment Code Equipment Origin al Text Equipment Identifier Dates Anchors, 5.5 Non Punching - [id number] Start: 07-07-2023 Anchors, 5.5 Non Punching - [id number] Start: 07-07-2023 Functional Status Date Assessment Result Facility 02-11-2023 Functional Status N/A [facility] Clinical Notes 09-26-2021 to 11-26-2023 Hal Fischer [...] anticipated. Patient has been doing PT at [facility] and this helps, says next week is her last session. Patient states that she is due for nerve block in SI joint at [facility] who she sees regularly, states that she needs approval from Dr. Ohara on this. Date: 11/26/2023 2:25 PM Patient: Bettie Burns MR#: [id number] : 1945 Age: 78 y.o. Referring Physician: [...] LUMPECTOMY FOOT SURGERY HEART CATHETERIZATION no stents [place] ENDOMETRIAL CRYOABLATION W/US & ENDOMETRIAL CR REMOVAL [...] x 1 month, then 2x/week for maintainence, [facility]/pharmacy #[id number], 165, cm, 02/11/23 10:41:00 EDT, Height/Length Dosing, [...] x 1 month, then 2x/week for maintainence, [facility]/pharmacy #[id number], 165, cm, 02/11/23 10:41:00 EDT, Height/Length Dosing, [...] anticipated. Patient has been doing PT at [facility] and this helps, says next week is her last session. Patient states that she is due for nerve block in SI joint at [facility] who she sees regularly, states that she needs approval from Dr. Ohara on this. Date: 11/26/2023 2:25 PM Patient: Bettie Burns MR#: [id number] : 1945 Age: 78 y.o. Referring Physician: [...] LUMPECTOMY FOOT SURGERY HEART CATHETERIZATION no stents [place] ENDOMETRIAL CRYOABLATION W/US & ENDOMETRIAL CR REMOVAL [...] x 1 month, then 2x/week for maintainence, [facility]/pharmacy #[id number], 165, cm, 02/11/23 10:41:00 EDT, Height/Length Dosing, [...] x 1 month, then 2x/week for maintainence, [facility]/pharmacy #[id number], 165, cm, 02/11/23 10:41:00 EDT, [...] penicillins, and tramadol. documented in this encounter [facility] 09-17-2023 Telephone encounter Note Order faxed to Torey Julio Pt aware. Matt Adams RN [facility] 09-17-2023 Miscellaneous Notes Order faxed to Torey Julio Pt aware. Matt Adams RN Pt called to request yearly Mammogram order I have pended order as previously completed Pt requests to fax to Nori Lema [phone] BR/: please review and sign if agreeable Matt Adams RN documented in this encounter [facility] 09-17-2023 Telephone encounter Note Pt called to request yearly Mammogram order I have pended order as previously completed Pt requests to fax to Nori Lema [phone] BRM/HM: please review and sign if agreeable Matt Adams RN [facility] 08-20-2023 History of Presen t illness Narrative [...] she is interested in Physcial Therapy through [facility]. Date: 08/20/2023 2:38 PM Patient: Bettie Burns MR#: [id number] : 1945 Age: 78 y.o. Referring Physician: Self, Self Insurance: Payor: MEDICARE AETSplitSecnd HMO OR PPO / Plan: MEDICARE AETNA [...] LUMPECTOMY FOOT SURGERY HEART CATHETERIZATION no stents NJ ENDOMETRIAL CRYOABLATION REMOVAL BILIARY DUCT/GALLBLADDER CALCULI/DEBRIS PERCUTANEOUS [...] x 1 month, then 2x/week for maintainence, [facility]/pharmacy #[id number], 165, cm, 02/11/23 10:41:00 EDT, [...] arise. All pertinant portions of the clinical personal support worker documentation was reviewed and I agree with [...] she is interested in Physcial Therapy through [facility]. Date: 08/20/2023 2:38 PM Patient: Bettie Burns MR#: [id number] : 1945 Age: 78 y.o. Referring Physician: [...] LUMPECTOMY FOOT SURGERY HEART CATHETERIZATION no stents NJ ENDOMETRIAL CRYOABLATION REMOVAL BILIARY DUCT/GALLBLADDER CALCULI/DEBRIS PERCUTANEOUS [...] x 1 month, then 2x/week for maintainence, [facility]/pharmacy #[id number], 165, cm, 02/11/23 10:41:00 EDT, Height/Length Dosing, [...] penicillins, and tramadol. documented in this encounter [facility] 07-23-2023 History of Presen t [...] 07/23/2023 2:45 PM Patient: Bettie Burns MR#: [id number] : 1945 Age: 78 y.o. Referring Physician: [...] LUMPECTOMY FOOT SURGERY HEART CATHETERIZATION no stents NJ ENDOMETRIAL CRYOABLATION REMOVAL BILIARY DUCT/GALLBLADDER CALCULI/DEBRIS PERCUTANEOUS [...] x 1 month, then 2x/week for maintainence, [facility]/pharmacy #[id number], 165, cm, 02/11/23 10:41:00 EDT, Height/Length Dosing, [...] no erythema, drainage or evidence of dehiscence. Dows intact. Calves are soft and nontender with [...] arthrex anchors -Incision was cleansed with Betadine. Dows were removed without issue, steri strip placed. [...] visit. All pertinant portions of the clinical personal support worker documentation was reviewed. Divine Mahmood I have reviewed the findings of the clinical personal support worker and agree with their assessment. Divine Mahmood [...] 07/23/2023 2:45 PM Patient: Bettie Burns MR#: [id number] : 1945 Age: 78 y.o. Referring Physician: [...] LUMPECTOMY FOOT SURGERY HEART CATHETERIZATION no stents NJ ENDOMETRIAL CRYOABLATION REMOVAL BILIARY DUCT/GALLBLADDER CALCULI/DEBRIS PERCUTANEOUS [...] x 1 month, then 2x/week for maintainence, [facility]/pharmacy #[id number], 165, cm, 02/11/23 10:41:00 EDT, Height/Length Dosing, [...] penicillins, and tramadol. documented in this encounter [facility] 07-17-2023 Miscellaneous Notes Dose confirmed with patient documented in this encounter [facility] 07-17-2023 Telephone encounter Note Dose confirmed with patient [facility] 07-15-2023 Miscellaneous Notes Pt called [facility] had knee surgery July 06 was off [...] was willing. slm documented in this encounter [facility] 07-15-2023 Telephone encounter Note Pt called had knee surgery July 06 was off [...] the ER and she was willing. slm [facility] [employer] [facility] 2023 Miscellaneous Notes AVS given to patient. [...] 07, 2023 ATTENDING PHYSICIAN: Miko Ohara M.D. 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 PROCEDURE PERFORMED: Unlisted procedure of right hip and pelvis, dual-row suture anchor repair of 100% massive abductor tear of right hip, work equivalent similar to CPT 37382 Periarticular injection of right hip. ANESTHESIA: General. [...] it as a CPT similar to that, 27102. ATTENDING/ASSISTING PARTICIPATION: This operation could not have been safely performed (without compromising the technical results or length of the procedure) without the assistance of a skilled surgical oncologist. A surgical oncologist was medically necessary for positioning, retraction and [...] OPERATIVE/PROCEDURE NOTE Bettie Burns 77 y.o. female [id number] SURGEON Surgeons and Role: * Miko Ohara MD - Primary FISHER Paula Fitzpatrick APRN-AUSTEN ANESTHESIOLOGIST SENIOR BACKUP ADMINISTRATOR: Chance Ngo CRNA; PALAK Barrett SURGICAL STAFF Baker Operator Automatic: Kisha Karimi RN; Whit Govea, RN Nurse Practitioner: Paula Fitzpatrick APRN-AUSTEN Scrub Person: Chi Goldberg RN; Naomi Maier [...] Implant Name Type Inv. Item Serial No. Fish Cleaner Lot No. LRB No. Used Action ANCHORS, 5.5 NON PUNCHING - [id number] ANCHORS, 5.5 NON PUNCHING HIST ARTHREX [id number] Right 1 Implanted ANCHORS, 5.5 NON PUNCHING - [id number] ANCHORS, 5.5 NON PUNCHING HIST ARTHREX [id number] Right 3 Implanted SPECIMENS ID Type Source Tests Collected by Time Destination A : Right hip incisional fluid (1-2) (Anaerobic & Aerobic) Fluid/Swab - Other SURGICAL WOUND ANAEROBE CULTURE Miko Ohara MD 07/07/2023 0677 B : Right hip fluid (cell count, defferential, & culture) Fluid, Unspecified FLUID, UNSPECIFIED BODY FLUID CELL COUNT Miko Ohara MD 07/07/2023 1319 C : Right hip suture (1-3) (Anaerobic & Aerobic) Surgical Wound SURGICAL WOUND FUNGUS CULTURE, ACID FAST CULTURE, ANAEROBE CULTURE Miko Ohara MD 07/07/2023 1434 Paula Fitzpatrick APRN-AUSTEN July 07, 2023 3:28 PM Unable to doppler right dorsalis pedis pulse. documented in this encounter [facility] 2023 Nurse Note AVS given [...] patient discharged home with daughter and . [facility] 2023 Hospital Discharg e instructions [...] at all times - Use a leg tableman to get in and out of bed [...] - 2023 12:01 PM EST Contact Office ([phone]) if: > Any falls or injuries > [...] puffs per hour and tylenol as directed. Carmen Sebastian RN - 2023 12:03 PM EST [...] or operative leg. documented in this encounter [facility] 2023 History of Presen t [...] LUMPECTOMY FOOT SURGERY HEART CATHETERIZATION no stents NJ ENDOMETRIAL CRYOABLATION REMOVAL BILIARY DUCT/GALLBLADDER CALCULI/DEBRIS PERCUTANEOUS [...] 0 Equipment Available wheeled walker;elevated toilet seat;shower chair;butcherette Cognitive Status Examination Orientation Status (Cognition) oriented [...] Supine to Sit, Rehab Eval Level of Bynum: Supine/Sit stand-by assist Physical Assist/Nonphysical Assist: Supine/Sit 1 person assist Transfer Skill: Sit to Stand, Rehab Eval Level of Bynum: Sit/Stand contact guard Physical Assist/Nonphysical Assist: Sit/Stand 1 person assist Weight-Bearing Restrictions: Sit/Stand toe touch weight-bearing Assistive Device for Transfer: Sit/Stand wheeled walker Upper Body Dressing Level of Bynum independent Physical Assist/Nonphysical Assist set-up required Lower Body Dressing Level of Bynum maximum assist (25% patients effort) Physical Assist/Nonphysical Assist 1 person assist Assistive Device butcherette General Therapy Interventions Planned Therapy Interventions (OT Eval) ADL retraining;balance training;transfer training Clinical Impression Co-evaluation/co-treatment performed? Yes, combination of simultaneous billable and individual billable skilled care was necessary due to medical complexity and functional deficits Patient Instruction/Education comments Pt instructed on LB dressing techniques donning underwear and shorts min assist in sitting and standing with training on use of butcherette to maintain hip precautions Rehab Potential (OT [...] hygiene training Therapist Information License # [id number] 1. Pt will complete LB dressing SBA [...] LUMPECTOMY FOOT SURGERY HEART CATHETERIZATION no stents NJ ENDOMETRIAL CRYOABLATION REMOVAL BILIARY DUCT/GALLBLADDER CALCULI/DEBRIS PERCUTANEOUS [...] Supine to Sit, Rehab Eval Level of Bynum: Supine/Sit stand-by assist Physical Assist/Nonphysical Assist: Supine/Sit 1 person assist Transfer Skill: Sit To Stand, Rehab Eval Bynum (Sit-Stand Transfers) contact guard Physical Assist/Nonphysical Assist: Sit/Stand 1 person assist Weight-Bearing Restrictions: Sit/Stand toe touch weight-bearing Assistive Device For Transfer: Sit/Stand 2 wheeled walker Gait Skills, PT Eval Level of Bynum: Gait contact guard Physical Assist/Nonphysical Assist: Gait [...] educated on hip precautions, use of leg tableman and weight bearing status. Pt educated to [...] WITH DR OHARA. documented in this encounter [facility] 2023 Hospital course Narrative Images from the [...] x 1 month, then 2x/week for maintainence, [facility]/pharmacy #[id number], 165, cm, 02/11/23 10:41:00 EDT, [...] Dept Phone 07/23/2023 2:30 PM Divine Mahmood [facility] [phone] documented in this encounter [facility] 2023 Surgery Postoperative evaluation and management note DATE OF PROCEDURE: July 07, 2023 ATTENDING PHYSICIAN: Miko Ohara M.D. 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 PROCEDURE PERFORMED: Unlisted procedure of right hip and pelvis, dual-row suture anchor repair of 100% massive abductor tear of right hip, work equivalent similar to CPT 02566 Periarticular injection of right hip. ANESTHESIA: General. [...] it as a CPT similar to that, 08252. ATTENDING/ASSISTING PARTICIPATION: This operation could not have been safely performed (without compromising the technical results or length of the procedure) without the assistance of a skilled surgical oncologist. A surgical oncologist was medically necessary for positioning, retraction and instrumentation. [facility] 2023 Nurse Note Assessment remains unchanged from previous. Neuro checks WN, abductor pillow in place. Call light within reach. [facility] 2023 Nurse Note Assessment remains unchanged from previous. Neuro checks WNL, abductor pillow in place. Denies futher needs, call light within reach. [facility] 07-07-2023 Consult note Associated Order (s): IP CONSULT TO GENERAL MEDICINE Medical consultation Patient is a 77 year old female who presents for revision total hip arthroplasty. She was at her baseline state of health prior to surgery and was medically optimized by her primary care provider and bass string winder. Testing notable for a blood sugar of [...] LUMPECTOMY FOOT SURGERY HEART CATHETERIZATION no stents NJ ENDOMETRIAL CRYOABLATION REMOVAL BILIARY DUCT/GALLBLADDER CALCULI/DEBRIS PERCUTANEOUS [...] metabolic panel in the morning GI prophylaxis. [facility] 07-07-2023 Consult note Associated Order (s): IP CONSULT TO GENERAL MEDICINE Medical consultation Patient is a 77 year old female who presents for revision total hip arthroplasty. She was at her baseline state of health prior to surgery and was medically optimized by her primary care provider and bass string winder. Testing notable for a blood sugar of [...] LUMPECTOMY FOOT SURGERY HEART CATHETERIZATION no stents NJ ENDOMETRIAL CRYOABLATION REMOVAL BILIARY DUCT/GALLBLADDER CALCULI/DEBRIS PERCUTANEOUS [...] morning GI prophylaxis. documented in this encounter [facility] 07-07-2023 Nurse Note Arrived to room [facility] from PACU. Bedside report received from RICARDO Jacobo. Oriented to room and provided call light. Admission assessment, head to toe and post op vitals initiated. Fresh ice water and crackers provided. Family members accompanying patient, denies additional needs, call light in reach. FAITH intact flashing green. [facility] 07-07-2023 Nurse Note Patient transferred to [facility] via cart in stable condition. [...] score of: 2 documented in this encounter [facility] 07-07-2023 Nurse Surgical operation note Patient transferred to [facility] via cart in stable condition. Report given to RICARDO Kim. Cart left in locked and lowest position with side rails up x2. Snack and call light given to patient. Monitors and alarms on and attached to patient. [facility] 07-07-2023 Nurse Surgical operation note Patient transported to PACU with Damián TILLEY. Reports given to Sara SILVA at 1530H. [facility] 07-07-2023 Surgery Postoperative evaluation and management note POST OPERATIVE/PROCEDURE NOTE Bettie Burns 77 y.o. female [id number] SURGEON Surgeons and Role: * Miko Ohara MD - Primary FISHER Paula Fitzpatrick APRN-AUSTEN ANESTHESIOLOGIST SENIOR BACKUP ADMINISTRATOR: Chance Ngo CRNA; Damián Saenz APRN-TREVA SURGICAL STAFF Baker Operator Automatic: Kisha Karimi RN; Whit Govea RN Nurse Practitioner: Paula Fitzpatrick APRN-AUSTEN Scrub Person: Chi Goldberg RN; Naomi Maier RN; Daryl Duran; Hao Milton, SKOOG MACHINE OPERATOR PROCEDURE PERFORMED Procedure(s) (LRB): OPEN ABDUCTOR TEAR [...] Implant Name Type Inv. Item Serial No. Fish Cleaner Lot No. LRB No. Used Action ANCHORS, 5.5 NON PUNCHING - [id number] ANCHORS, 5.5 NON PUNCHING HIST ARTHREX [id number] Right 1 Implanted ANCHORS, 5.5 NON PUNCHING - [id number] ANCHORS, 5.5 NON PUNCHING HIST ARTHREX [id number] Right 3 Implanted SPECIMENS ID Type Source [...] FUNGUS CULTURE, ACID FAST CULTURE, ANAEROBE CULTURE Miok Ohara MD 07/07/2023 1434 Paula Fitzpatrick APRN-MANAGER INSPECTION July 07, 2023 3:28 PM . [facility] Nurse Surgical operation note OR 3 room temp: 65.1F Humidity: 44% Fire score of: 2 . [facility] [employer] [facility] 07-07-2023 Nurse Note Unable to doppler right dorsalis pedis pulse. [facility] 06-19-2023 Miscellaneous Notes Surgeon: Dr [...] Dr Ohara office. documented in this encounter [facility] 06-19-2023 Telephone encounter Note Surgeon: Dr Miko [...] on risk, holding Eliquis and Celebrex question. [employer] 06-19-2023 Telephone encounter Note Okay to proceed with surgery at moderate risk Can use Celebrex Hold Eliquis for 2 days resume after surgery [employer] Work Phone: 06-19-2023 Telephone encounter Note Clearance note faxed back to Dr Ohara office. [employer] 06-18-2023 History of Presen t illness Narrative [...] year ago with Dr. Denver Hughes in [place]. Pt states she is looking for a second opinion due to having issues from this past surgery. Date: 06/18/2023 2:32 PM Patient: Bettie Burns MR#: [id number] : 1945 Age: 77 y.o. Referring Physician: [...] APPENDECTOMY BREAST LUMPECTOMY FOOT SURGERY HEART CATHETERIZATION NJ ENDOMETRIAL CRYOABLATION REMOVAL BILIARY DUCT/GALLBLADDER CALCULI/DEBRIS PERCUTANEOUS [...] tendons as discussed in detail above. 3. [id number] amount of fluid along the lateral aspect [...] nasal MRSA screening, scheduling an appointment for [facility] and the potential surgical date, and reviewing [...] APPENDECTOMY BREAST LUMPECTOMY FOOT SURGERY HEART CATHETERIZATION NJ ENDOMETRIAL CRYOABLATION REMOVAL BILIARY DUCT/GALLBLADDER CALCULI/DEBRIS PERCUTANEOUS W/ IMAGE REMOVAL CATARACT (PEM) ROTATOR CUFF REPAIR History reviewed. No pertinent family history. Social History Socioeconomic History Marital status: Tobacco Use Smoking status: Never Smokeless tobacco: Never Social Determinants of Health Food Insecurity: No Food Insecurity (06/02/2023) Received from [employer] Hunger Screening Within the past 12 months [...] Oxycodone Penicillins Tramadol documented in this encounter [facility] 06-02-2023 History of Presen t illness Narrative Bettie Carroll Carlosbobbi Date of visit: 06/02/2023 Date of [...] issues. Past Medical History: Diagnosis [place] hx of Arrhythmia 12/2016 ATRIAL FIBRILLATION Arthritis Breast cancer [place] 11/14/2015 LEFT COVID-19 03/2020 History of bleeding ulcers Hypertension Migraines Pneumonia d/t covid Prolonged emergence from general anesthesia Visual impairment glasses No data recorded No data recorded No data recorded Past Surgical History: Procedure Laterality Date ABLATION OF DYSRHYTHMIC FOCUS Right nerve ablation, L4 and L5 Afib ablation with SHANICE - CRYO, Rhythmia, ICE N/A 09/28/2018 Performed by Amber Quiñonez MD at [facility] () ARTHROSCOPY REPAIR ROTATOR CUFF SHOULDER Right 05/16/2020 Performed by Melchor Rivera DO at [facility] ARTHROSCOPY SHOULDER Right 05/16/2020 Performed by Melchor Rivera DO at [facility] BREAST BIOPSY Left 2016 BREAST LUMPECTOMY Left 11/14/2015 WITH RADIATION BREAST SURGERY Left 2012 lumpectomy CATARACT EXTRACTION CHOLECYSTECTOMY COLONOSCOPY Coronary angiogram and left ventricular gram/pressure N/A 08/08/2021 Performed by Bertram Lal MD at [facility] EYE SURGERY lids [...] STARKS MD Referring Physician: Elliot Starks MD [address] [place] [address] documented in this encounter [employer] 05-14-2023 History of Presen t illness Narrative Ortho Nurse - Patient Intake Room#: 1 --- [employer] SOFTWARE DEVELOPER R Hip pain, had R THR in [...] 05/14/2023 9:44 AM Patient: Bettie Burns MR#: [id number] : 1945 Age: 77 y.o. Referring Physician: [...] [x]cane, []bracing Are you followed by a bass string winder? [x] [] Name: Dr. Waleska Zhu - [facility] Are you followed by pain management? [x] [] Name: Dr. Cedeno - Xenia Wayne @ [facility] Are you followed by any other specialists? [x] [] Name: Oncolgist - Dr. Choi [facility] Urologist - Dr. Christian Bourne [...] abductor muscles as well as ESR/CRP and [place] and Chromium labs today. I will see [...] APPENDECTOMY BREAST LUMPECTOMY FOOT SURGERY HEART CATHETERIZATION NJ ENDOMETRIAL CRYOABLATION REMOVAL BILIARY DUCT/GALLBLADDER CALCULI/DEBRIS PERCUTANEOUS [...] Oxycodone Penicillins Tramadol documented in this encounter [facility] 03-30-2023 Evaluation note Encounter Date [...] verbalizes understanding and agrees with tx plan. [employer] Other 10-11-2023 NoteChief Complaint Referral *Frequent UTI HPI Staff Evaluation requested by Dr Elloit Starks due to Frequent UTI Pt is [...] states that she was put on a residential abx which has helped a lot. Pt [...] a hematuria workup including a scope, at [facility]. Occasional visible blood w/UTI. UA today shows moderate blood. Discussed doing a hematuria workup if the pt would like to. Pt states that she is not worried aboutthis and does not see the need to have t (more content not included)...[facility]:Result Comment: Electronically Signed By: Alfreda Miller MD\.br\Date and Time Signed: 02/11/23 12:13EDT\.br\Electronically Co-Signed By: Karlee Ramos.br\Date and Time Co-Signed: 02/11/23 11:16 [id number] Hospital Discharge instructions Patient Education 02/11/2023 11:16:08 [...] provider. Document Revised: 08/29/2021 Document Reviewed: 08/29/2021 [employer] Patient Education 2022 [employer]. Follow Up Care 11/06/2022 15:31:52 With:Paul VILLEGAS, Alfreda Palacios URBranden, URO Address: When:Within 3 Month(s) [facility] 07-17-2023 Evaluation note* Encounter Date Diagnosis Assessment Notes Treatment Notes Treatment Clinical Notes Nov, Dysuria (ICD-10 - R30.0) [employer] Other 06-29-2023 Evaluation note* Encounter Date Diagnosis Assessment Notes Treatment Notes Treatment Clinical Notes Oct, Frequent UTI (ICD-10 - N39.0) Pt requests Urology referral. Discussed also getting CT to move along process. Oct, Dyshidrotic eczema (ICD-10 - L30.1) Will treat with steroid cream prn [facility] Other 06-26-2023 Evaluation note* Encounter Date Diagnosis Assessment Notes Treatment Notes Treatment Clinical Notes Oct, Dysuria (ICD-10 - R30.0) [facility] Other 05-11-2023 Miscellaneous Notes* Telephone Encounter - Matt Adams RN - 09/11/2022 11:43 AM EDT Order faxed to [facility] and pt is aware. Matt Adams RN * Telephone Encounter - Matt Adams RN - 09/11/2022 9:51 AM EDT Pt called to request yearly Mammogram order I have pended order as previously completed Pt requests to fax to Nori Lema [phone] BRM/HM: please review and sign if agreeable Matt Adams [facility]* Encounter Date Diagnosis Assessment Notes Treatment Notes Treatment Clinical Notes Aug, Dysuria (ICD-10 - R30.0) [employer] Other 03-16-2023 Evaluation note* Encounter Date Diagnosis [...] N32.81) chronic and improved on present med [facility] Other 02-20-2023 Evaluation note* Encounter Date Diagnosis Assessment Notes Treatment Notes Treatment Clinical Notes Jun, Dysuria (ICD-10 - R30.0) [facility] Other 02-03-2023 Evaluation note* Encounter Date Diagnosis Assessment Notes Treatment Notes Treatment Clinical Notes Jun, OAB (overactive bladder) (ICD-10 - N32.81) [facility] Other 02-01-2023 Evaluation note* Encounter Date Diagnosis Assessment Notes Treatment Notes Treatment Clinical Notes Jun, OAB (overactive bladder) (ICD-10 - N32.81) Patient request to try new medication reviewed side effect profile. Patient declines urology or MUD PLANT OPERATOR referral at this time. Jun, Essential hypertension (ICD-10 - I10) reviewed and updated medications she will follow-up with cardiology in Jun, Hypokalemia (ICD-10 - E87.6) Reviewed and updated medications. Discussed foods that are high in potassium Jun, Right lumbar pain (ICD-10 - M54.50) Follow-up with Dr. Rivera as scheduled in June. She does have limping with her gait. [facility] Other 05-26-2022 Miscellaneous Notes* Telephone Encounter - Andrew Choi MD - 09/26/2021 5:13 PM EDT Okay to change to screening mammogram. Order signed. ASIYA Ford * Telephone Encounter - Mikaela Thompson RN - 09/26/2021 2:33 PM EDT Pt scheduled for diagnostic mamm tomorrow @ [facility]. Hospital calls to ask if this could be changed to a screening mammogram since the pt is greater than 2 years from diagnosis? [facility] Future Appointments Appointment Date:05/27/2023 08:45:00 AM Scheduled Provider:Alfreda Miller MD Location:[facility] Appointment Type:URO Office Visit [facility] evaluation note* Diagnosis Encounter for screening mammogram for malignant neoplasm of breast- Primary Other screening mammogram documented [facility] this [facility] note* Diagnosis Malignant neoplasm of upper-outer quadrant of left breast in female, estrogen receptor positive (HCC)- Primary documented [facility]No [facility] [employer] Other Evaluation note* Diagnosis Encounter for screening mammogram for malignant neoplasm of breast- Primary Other screening mammogram documented in this encounter [facility] noteNo assessment information [facility] Work Phone: Evaluation note* Diagnosis Pain in prosthetic joint, initial encounter- Primary Primary osteoarthritis of right hip Primary localized osteoarthrosis, pelvic region and thigh [facility] Diagnosis Paroxysmal atrial fibrillation (CMS-HCC)- Primary Atrial fibrillation Primary hypertension Unspecified essential hypertension Chronic coronary artery disease Coronary atherosclerosis of unspecified type of vessel, [place] or graft [facility] Right hip pain- Primary Pain in joint, pelvic region and thigh Pre-op testing- Primary Preoperative examination, unspecified Essential (primary) hypertension Unspecified essential hypertension Abnormal finding of blood chemistry, unspecified Abnormal coagulation profile Tear of rotator cuff of right hip, initial encounter 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, initial encounter [facility] Status post revision of total hip- Primary Hip joint replacement by other means Pre-op testing Preoperative examination, unspecified Tear of rotator cuff of right hip, initial encounter 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, initial encounter Acute postoperative pain of right hip [facility] Diagnosis Tear of gluteus minimus tendon, right, initial encounter- Primary [facility] Diagnosis Right hip pain- Primary Pain in joint, pelvic region and thigh [facility]* Diagnosis Onset Date Resolution Status Dysuria noneactive [facility] Work Phone: Evaluation note* Diagnosis Hx of total hip arthroplasty, right- Primary [facility] N[facility]ative - Reported* Type Description [...] replacement 12/16/2021 Hospitalization History SEE SURGICAL HX ITegris Other Hospital course Narrative No data available for this section [facility] Discharge instructions* Attachments The following attachments cannot be sent through Care Everywhere. * [facility] AMB SMOKING CESSATION LINKS documented in this encounterAvita Novariant SystemInstructionsNot on filedocumented in this encounterProMedidc Novariant SystemInstructionsNot on filedocumented in this encounterProCarraway [facility] Novariant SystemInstructionsNot on filedocumented in this encounterProMercy [facility] SystemProgress note No data available for this section [facility] reason for referral (narrative)* Diagnostic Procedure Only (Routine) - Pending Review Specialty Diagnoses / Procedures Referred By Contac t Referred To Contact [facility] Diagnoses Encounter for screening mammogram for malignant neoplasm of breast Procedures SHANE SCREENING W YAW SCREENING DIGITAL BREAST TOMOSYNTHESIS BI SCREENING MAMMOGRAPHY BI 2-VIEW BREAST INC Andrew Miguel MD [address] [place] [address] [place] [address] [facility] [address] [place] [phone] Referral ID Status Reason Start Date Expiration Date Visits Requested Visits Authorized [id number] Pending Review Auto-Generat ed Referral 09/26/2021 10/26/2022 1 1 T [facility] for referral (narrative)* Diagnostic Procedure Only (Routine) - Pending Review Specialty Diagnoses / Procedures Referred By Contac t Referred To Contact [facility] Diagnoses Encounter for screening mammogram for malignant neoplasm of breast Procedures SHANE SCREENING W YAW SCREENING DIGITAL BREAST TOMOSYNTHESIS BI SCREENING MAMMOGRAPHY BI 2-VIEW BREAST INC Andrew Miguel MD [address] [place] [address] [place] [address] [facility] [address] [place] [phone] Referral ID Status Reason Start Date Expiration Date Visits Requested Visits Authorized [id number] Pending Review Auto-Generat ed Referral 09/11/2022 10/11/2023 1 1 [facility] for referral (narrative)* (Routine) Specialty Diagnoses / Procedures Referred By Contac t Referred To Contact [facility] [address] [facility] [place] [address] Referral ID Status Reason Start Date Expiration Date Visits Re quested Visits Authorized [facility] for referral (narrative)* Consultation (Routine) - Patient to Arrange Specialty Diagnoses / Procedures Referred By Contac t Referred To Contact Physical Therapy Diagnoses Right hip pain Divine Mahmood [address] [place] [address] Referral ID Status Reason Start Date Expiration Date V isits Requested Visits Authorized [id number] Patient to Arrange 08/20/2023 09/13/2024 1 1 Scheduling Instructions . * Diagnostic X-Ray (Routine) - New Request Specialty Diagnoses / Procedures Referred By Juan wren Referred To Contact Diagnoses Right hip pain Procedures XR HIP WITH PELVIS RIGHT ElaJermaineDivine M [address] [place] [address] Referral ID Status Reason Start Date Expiration Date V isits Requested Visits Authorized [id number] New Request 08/20/2023 09/13/2024 1 1 [facility] Diagnostic Procedure Only (Routine) - Pending Review Specialty Diagnoses / Procedures Referred By Juan wren Referred To Contact [facility] Diagnoses Encounter for screening mammogram for malignant neoplasm of breast Procedures SHANE SCREENING W YAW SCREENING DIGITAL BREAST TOMOSYNTHESIS BI SCREENING MAMMOGRAPHY BI 2-VIEW BREAST INC CAD Andrew Choi MD [address] [place] [address] [place] [address] [facility] [address] [place] [phone] Referral ID Status Reason Start Date Expiration Date Visits Requested Visits Authorized [id number] Pending Review Auto-Generat ed Referral 09/17/2023 10/16/2024 1 1 [facility] Summary Purpose Family History Relationship Condition Age at Onset Recorded Date/T nilam father Unknown mother Unknown Advance Directives Documents on File Type Date Recorded Patient Oil Separator Expl anation Living Will 05/21/2020 9:37 AM Durable Power of Test Consultant 05/21/2020 9:27 AM Durable Power of Test Consultant 05/16/2020 6:05 AM Living Will 05/16/2020 6:04 AM Documents on File Type Date Recorded Patient Oil Separator Expl anation Advance Directives/Living Will 06/25/2023 9:17 AM DURABLE POWER OF INSULATION EXTRUDER OPERATOR FOR HEALTHCARE 06/25/23 Advance Directives/Living Will 06/25/2023 [...] HIP WITH PELVIS RIGHT Miko Ohara MD [address] [place] [address] Referral ID Status Reason Start Date Expiration Date V isits Requested Visits Authorized [id number] New Request 11/16/2023 12/10/2024 1 1 Specialty Diagnoses / Procedures Referred By Contac t Referred To Contact Diagnoses Tear of gluteus minimus tendon, right, initial encounter Procedures XR HIP WITH PELVIS RIGHT Divine Mahmood [address] [place] [address] Referral ID Status Reason Start Date Expiration Date V isits Requested Visits Authorized [id number] New Request 07/20/2023 08/13/2024 1 1 Specialty Diagnoses / Procedures Referred By Contac t Referred To Contact Diagnoses Pain in prosthetic joint, initial encounter Procedures MRI HIP RIGHT WITHOUT CONTRAST [place] MRI LOWER EXTREM JT, W/O CONTRAST Miko Ohara MD [address] [place] [address] Referral ID Status Reason Start Date Expiration Date V isits Requested Visits Authorized [id number] New Request 05/14/2023 06/07/2024 1 1 Specialty Diagnoses / Procedures Referred By Contac t Referred To Contact Diagnoses Pain in prosthetic joint, initial encounter Procedures COBALT AND CHROMIUM,WB Miko Ohara MD [address] [place] [address] Referral ID Status Reason Start Date Expiration Date V isits Requested Visits Authorized [id number] New Request 05/14/2023 06/07/2024 1 1 Specialty Diagnoses / Procedures Referred By Juan wren Referred To Contact Diagnoses Primary osteoarthritis of right hip Procedures XR HIP WITH PELVIS RIGHT Miko Ohara MD [address] [place] [address] Referral ID Status Reason Start Date Expiration Date V isits Requested Visits Authorized [id number] New Request 05/06/2023 05/30/2024 1 1 Reason *FU 11/12 [place] office Diagnosis 1 Frequent UTI (N39.0) Referral Organization [facility] Medical tam Referring Provider First Name Elliot Referring Provider Last Name Raudel Referring Provider Specialty Family [facility] Referred Organization [facility] Referred Provider ALFREDA MILLER Referred Address [address] [place], [place] Referred Provider Specialty Urology Referral Priority Routine General Notes Victoria Lisa 11:03:05 AM >received today, notes attached, along with labs and ins, waiting for notes to be locked before faxing Victoria Lisa 11/05/2022 02:44:05 PM >referral faxed Chief Complaint and Reason for Visit Chief Complaint med refills Reason for Visit Dysuria Chief Complaint med dicussion Additional Source Comments INFORMATION SOURCE (unrecogn ized section and content) DATE CREATED AUTHOR 10/28/2017 [facility] DATE CREATED AUTHOR AUTHOR'S ORGANIZ ATION 03/21/2020 [facility] DATE CREATED AUTHOR AUTHOR'S ORGANIZ ATION 09/13/2021 [facility] dical Specialist DATE CREATED AUTHOR AUTHOR'S ORGANIZ ATION 06/11/2022 [facility] DATE CREATED AUTHOR AUTHOR'S ORGANIZ ATION 11/18/2022 [facility] DATE CREATED AUTHOR AUTHOR'S ORGANIZ ATION 05/20/2023 [facility] DATE CREATED AUTHOR AUTHOR'S ORGANIZ ATION 06/06/2023 [facility] DATE CREATED AUTHOR AUTHOR'S ORGANIZ ATION 09/19/2023 [facility] DATE CREATED AUTHOR AUTHOR'S ORGANIZ ATION 10/01/2023 [facility] DATE CREATED AUTHOR AUTHOR'S ORGANIZ ATION 10/17/2023 [facility] DATE CREATED AUTHOR AUTHOR'S ORGANIZ ATION 12/30/2023 [facility] Source Comments (unrecognize d section and content) In the event this informatio n is protected by the Federal Confidentiality of Alcohol and Drug Abuse Patient Records regulations: The Federal rules restrict any use of the information to criminally investigate or prosecute any alcohol or drug abuse patient.[facility] CenterIn the event this information is protected by the Federal Confidentiality of Alcohol and Drug Abuse Patient Records regulations: The Federal rules restrict any use of the information to criminally investigate or prosecute any alcohol or drug abuse patient.[facility] CenterIn the event this information is protected by the Federal Confidentiality of Alcohol and Drug Abuse Patient Records regulations: The Federal rules restrict any use of the information to criminally investigate or prosecute any alcohol or drug abuse patient.[facility] CenterIn the event this information is protected by the Federal Confidentiality of Alcohol and Drug Abuse Patient Records regulations: The Federal rules restrict any use of the information to criminally investigate or prosecute any alcohol or drug abuse patient.[facility] Reason for Visit (unrecogniz ed section and content) Reason Comments Radiology Mammogram Reason Comments Lab Orders Reason Comments Orders Specialty Diagnoses / Procedures Referred By Juan wren Referred To Contact Diagnoses Primary osteoarthritis of right hip Procedures XR HIP WITH PELVIS RIGHT Miko Ohara MD [address] [place] [address] Referral ID Status Reason Start Date Expiration Date V isits Requested Visits Authorized [id number] New Request 05/06/2023 05/30/2024 1 1 Reason [...] right hip prosthesis, initial encounter [T84.090A] Procedures NJ PELVIS/HIP JOINT SURGERY UNLISTED [place] REVISE TOTAL HIP REPLACEMENT GLUTEUS MEDIUS TENDON REPAIR REVISION ARTHROPLASTY HIP BOTH ACETABULAR & FEMORAL COMPONENTS Miko Ohara MD [address] [place] [address] Referral ID Status Reason Start Date Expiration Date Visits Re quested Visits Authorized [id number] 06/19/2023 1 1 Reason Comments Post Op Visit Specialty Diagnoses / Procedures Referred By Juan wren Referred To Contact Diagnoses Tear of gluteus minimus tendon, right, initial encounter Procedures XR HIP WITH PELVIS RIGHT Divine Mahmood [address] [place] [address] Referral ID Status Reason Start Date Expiration Date V isits Requested Visits Authorized [id number] New Request 07/20/2023 08/13/2024 1 1 Reason Comments Med Refill Reason Comments Follow-up Specialty Diagnoses / Procedures Referred By Contac t Referred To Contact Diagnoses Right hip pain Procedures XR HIP WITH PELVIS RIGHT Divine Mahmood [address] [place] [address] Referral ID Status Reason Start Date Expiration Date V isits Requested Visits Authorized [id number] New Request 08/20/2023 09/13/2024 1 1 Reason Comments Yearly Exam With Mammogram Reason Comments Pain Specialty Diagnoses / Procedures Referred By Contac t Referred To Contact Diagnoses Hx of total hip arthroplasty, right Procedures XR HIP WITH PELVIS RIGHT Miko Ohara MD [address] [place] [address] Referral ID Status Reason Start Date Expiration Date V isits Requested Visits Authorized [id number] New Request 11/16/2023 12/10/2024 1 1 Care Teams (unrecognized sec tion and content) Tree Trimmer Relationship Specialty Start Date End Date Elliot Starks MD [address] [place] [phone] PCP - General Family Practice 11/26/15 Tree Trimmer Relationship Specialty Start Date End Date Elliot Starks MD [address] [place] [phone] PCP - General Family Practice 11/26/15 Tree Trimmer Relationship Specialty Start Date End Date Elliot Starks MD [address] [place] [address] PCP - General Family Medicine 11/26/15 Team Status: Inactive Member Role Status Dates Elliot Starks MD Attending Provider Active Tree Trimmer Relationship Specialty Start Date End Date Elliot Starks MD [address] [place] [address] PCP - General Family Medicine 05/11/23 Tree Trimmer Relationship Specialty Start Date End Date Elliot Starks MD [address] [place] [facility] [address] PCP - General Family Medicine 05/11/23 Tree Trimmer Relationship Specialty Start Date End Date Elliot Starks MD [address] [facility] [place] [address] PCP - General 03/17/17 Tree Trimmer Relationship Specialty Start Date End Date Elliot Starks MD [address] [place] [address] PCP - General 03/17/17 Tree Trimmer Relationship Specialty Start Date End Date Elliot Starks MD [address] [place] [facility] [place] [address] PCP - General Family Medicine 05/11/23 Tree Trimmer Relationship Specialty Start Date End Date Elliot Starks MD [address] [place] [facility] [address] PCP - General Family Medicine 05/11/23 Tree Trimmer Relationship Specialty Start Date End Date Elliot Starks MD [address] [place] [address] PCP - General 03/17/17 Tree Trimmer Relationship Specialty Start Date End Date Elliot Starks MD [address] [place] [facility] [place] [address] PCP - General Family Medicine 05/11/23 Tree Trimmer Relationship Specialty Start Date End Date Elliot Starks MD [address] [place] [facility] [place] [address] PCP - General Family Medicine 05/11/23 Tree Trimmer Relationship Specialty Start Date End Date Elliot Starks MD [address] [place] [address] PCP - General 07/15/23 Tree Trimmer Relationship Specialty Start Date End Date Elliot Starks MD [address] [place] [address] PCP - General Family Medicine 05/11/23 Tree Trimmer Relationship Specialty Start Date End Date Elliot Starks MD [address] [place] [address] PCP - General Family Medicine 05/11/23 Tree Trimmer Relationship Specialty Start Date End Date Elliot Starks MD [address] [place] [phone] PCP - General Family Medicine 11/26/15 Team Status: Active Member Role Status Dates Elliot Starks MD Primary Care Provider Active Team Status: Inactive Member Role Status Dates Elliot Starks MD Primary Care Provide r, Attending Provider Active Start: October 28, 2023 End: October 28, 2023 Team Status: Inactive Member Role Status Dates Elliot Starks MD Primary Care Provide r, Attending Provider Active Start: February 01, 2024 End: February 01, 2024 Goals (unrecognized section and content) Goals may be documented in a n alternate section Scheduled Active and Recently Administ ered Medications (unrecognized section and content) Medication Order 07/06/2023 07/07/2023 2023 acetaminophen (TYLENOL) tablet 1,000 mg 1,000 mg, Oral, EVERY 6 HOURS NON-STANDARD, First dose on Thu07/07/23 at 1845, Until Discontinued, Post-op/Post-Proc 1818 (Given - Provider: Marcella Lozano RN)2348 (Given - Provider: Aidee Field, RICARDO) 0607 (Given - Provider: Aidee Field RN)1511 (Given - Provider: Dolly Liao RN)1845 (Canceled Entry - Provider: System Discharge - Comment: Automatically canceled at discontinue of medication order) apixaban (ELIQUIS) tablet 2.5 mg 2.5 mg, Oral, EVERY 12 HOURS, First dose on Thu07/08/23 at 0900, Until Discontinued, Start in AM day after surgery, Indications: Venous Thromboembolism, Post-op/Post-Proc 903 (Given - Provid er: Dolly Liao [...] 1818 (Given - Provider: Marcella Lozano RN) 0904 [...] RN)1514 ($$New Bag$$ - Provider: Damián Saenz APRN-SENIOR BACKUP ADMINISTRATOR)1647 (Stopped - Provider: Aidee Field RN) Sodium [...] 2 g, Intravenous, Administer over 15 Minutes, PIPE SMOKER MACHINE OPERATOR TO PROCEDURE, 1 dose, Starting on Thu07/07/23 at 1003, Until Thu07/07/23 at 1409, Other, Pre-operative antibiotic, Pre-op/Pre-Proc 1354 (Given - Provider: Melchor Holcomb APRN-SENIOR BACKUP ADMINISTRATOR) HYDROmorphone (DILAUDID) injection 0.5 mg 0.5 mg, [...] Marcella Lozano RN)2102 (Given - Provider: Aidee Field RN) senna-docusate [...] BE BASED ON THE PRIMARY CLINICAL RECORDS. [facility]. provides no warranty or guarantee of the accuracy or completeness of information in this document.
--- NOTE | 2024-03-23 11:06 | PM.CN ---
Consult Note: HPI Data of Consult Patient: known to practice within the last 3 years Consult date: 05/18/23 Requesting Physician: Larissa Turner NP Primary Care Provider: Marine Glass MD Consult Narrative Reason for consult: low back and right hip pain Narrative: 78yof who presents for assessment. hx of chronic low back pain that responds well to right L4-5 L5-S1 facet RFA. she continues in >6 weeks of chiropractic therapy, but this has made pain worse. has tried MDP, muscle relaxant, with limited benefit. patient utilizing mckenna aspirin on occasion for pain, failed tylenol. on eliquis, should avoid all NSAIDs. Previous right L4/5 L5/S1 facet RFA providing >50% improvement greater than 6 months, recently underwent right SIJ injection with >50% improvement for 3 months. intermittent low back pain 11/10. Pain increased with standing, walking, housework, improved with sitting/lying and ice. finds benefit to current medication regimen without side effects. cc:: CC: Larissa Turner NP Review of Systems ROS Status of ROS 10 or more systems reviewed and unremarkable except as noted in history and below Musculoskeletal Reports: back pain and joint pain [facility] Medical History (Updated 03/23/24 @ 11:12 by Larissa Turner NP) Neck pain ?M54.2 - Cervicalgia (ICD-10) Upper back pain ?M54.9 - Dorsalgia, unspecified (ICD-10) Low back pain ?M54.50 - Low back pain, unspecified (ICD-10) Osteoarthritis ?M19.90 - Unspecified osteoarthritis, unspecified site (ICD-10) H/O malignant neoplasm of breast ?Z85.3 - Personal history of malignant neoplasm of breast (ICD-10) Hearing deficit ?H91.90 - Unspecified hearing loss, unspecified ear (ICD-10) Former smoker ?Z87.891 - Personal history of nicotine dependence (ICD-10) Hypertension ?I10 - Essential (primary) hypertension (ICD-10) Atrial fibrillation ?I48.91 - Unspecified atrial fibrillation (ICD-10) Cataract ?H26.9 - Unspecified cataract (ICD-10) Surgical History Status post hip surgery ?Z98.890 - Other specified postprocedural states (ICD-10) H/O total hip arthroplasty ?Z96.649 - Presence of unspecified artificial hip joint (ICD-10) H/O cardiac catheterization ?Z98.890 - Other specified postprocedural states (ICD-10) History of cholecystectomy ?Z90.49 - Acquired absence of other specified parts of digestive tract (ICD-10) H/O: hysterectomy ?Z90.710 - Acquired absence of both cervix and uterus (ICD-10) H/O foot surgery ?Z98.890 - Other specified postprocedural states (ICD-10) H/O eye surgery ?Z98.890 - Other specified postprocedural states (ICD-10) H/O shoulder surgery ?Z98.890 - Other specified postprocedural states (ICD-10) H/O breast surgery ?Z98.890 - Other specified postprocedural states (ICD-10) Social History Smoking status: Never smoker Meds Home Medications and Allergies Home Medications ?Medication ?Instructions ?Recorded ?Confirmed ?Type apixaban 5 mg tablet (Eliquis) 5 mg PO BID 10/28/22 12/14/23 History atenolol 50 mg tablet 75 mg PO DAILY 10/28/22 12/14/23 History baclofen 10 mg tablet 20 mg PO TID 10/28/22 12/14/23 History hydrochlorothiazide 25 mg tablet 25 mg PO DAILY 10/28/22 12/14/23 History lisinopril 20 mg tablet 20 mg PO DAILY 10/28/22 12/14/23 History neuveria vitamin DAILY 10/28/22 History temazepam 30 mg capsule 30 mg PO QPM 10/28/22 12/14/23 History trospium 20 mg tablet 20 mg PO Q12H 04/02/23 12/14/23 History aspirin 500 mg tablet (Mckenna 500 mg PO DAILY PRN pain 11/04/23 12/14/23 History Advanced) cyclosporine 0.05 % eye drops in a drp ophthalmic (eye) 11/04/23 History dropperette omeprazole 40 mg capsule,delayed 40 mg PO DAILY 11/04/23 11/04/23 History release vit C 250 mg-vit E 90 mg-zinc 40 1 tab PO BID 11/04/23 12/14/23 History mg-copper 1 [id number] capsule (PreserVision AREDS-2) flecainide 50 mg tablet mg 12/14/23 History potassium chloride 10 mEq meq PO 12/14/23 History tablet,extended release Allergies Allergy/AdvReac Type Severity Reaction Status Date / Time acetaminophen (From Vicodin) Allergy Severe itching Verified 12/14/23 06:58 hydrocodone (From Vicodin) Allergy Severe itching Verified 12/14/23 06:58 codeine Allergy Unknown Hives Verified 12/14/23 06:58 levofloxacin (From Levaquin) Allergy Unknown uticaria Verified 12/14/23 06:58 morphine Allergy Unknown uticaria Verified 12/14/23 06:58 Penicillins Allergy Unknown uticaria Verified 12/14/23 06:58 tramadol Allergy Unknown uticaria Verified 12/14/23 06:58 Exam Constitutional Documenting provider has reviewed patient's vital signs: yes Common normals: no apparent distress, oriented x3, healthy appearing, alert and well nourished General appearance: cooperative HENMT Common normals: normocephalic, hearing grossly normal bilaterally and moist oral mucous membranes Head and scalp: normocephalic Eye Common normals: PERRL Pupil: PERRL Neck & C-Spine Common normals: full ROM General: normal visual inspection Chest Common normals: inspection of chest normal Respiratory Common normals: normal respiratory effort, no retractions and no use of accessory muscles Back & Pelvis Lumbar spine/lower back: ROM limited, pain with ROM and straight leg raise negative bilaterally Sacroiliac joints: SI joint(s) abnormal Other: bilateral facet loading positive, right greater than left tenderness over L4-S1 facets negative radiculopathy right SIJ exam positive jovanna(patricks), gaenslens, thigh thrust, compression test Extremity Common normals: normal to inspection and full ROM Neuro Common normals: oriented x3, CN's II-XII intact bilaterally, moves all extremities, no focal motor deficits, no sensory deficits noted, deep tendon reflexes 2+ bilaterally and gait normal Sensorium/orientation: alert Motor exam: strength 5/5 throughout and no movement abnormalities noted Psych Common normals: mental status grossly normal, thought process normal, cooperative, affect normal, speech normal and activity/motor behavior normal Speech: normal speech Thought process: normal thought process Assessment and Plan Assessment and Plan (1) Sacroiliac joint dysfunction: (2) Myofascial pain: (3) Lumbar spondylosis: Plan repeat right SIJ injection under fluoroscopy, previous injection provided >50% improvement for 3 months consider repeat right L4-5 L5-S1 facet joint RFA, declining at this time continue current medications continue HEP as tolerated f/u after injection complete
== END 2024-03-23 10:47 | disposition home or self-care (01) ==
LOC: PM 10:46
PROVIDERS: PCP Family Medicine; Visit Provider Nurse Practitioner
DX: M53.3 Sacrococcygeal disorders, not elsewhere classified (principal); M79.18 Myalgia, other site; M47.816 Spondylosis without myelopathy or radiculopathy, lumbar region
CPT/HCPCS: G0463

== ENCOUNTER 2024-04-04 06:57 | Day surgery (SDC) | payer MEDICARE, SELFPAY ==
--- OUTSIDE RECORDS SUMMARY | 2024-04-04 07:01 | XMS_ITS | CCD ---
Author Organization [facility] Care Team Providers Care Charge Gang Weigher Name Role Phone PHYSICIAN, DEFAULT Unavailable Unavailable [...] Unavailable STARKS, ELLIOT E Primary Care Unavailable MKIO VASQUEZ Attending Unavailable STARKS, ELLIOT E Referring [...] 03-19-20 17 Unknown, Itching, Rash, Nausea Only [facility] (20 sources) Baclofen; Translations: [baclofen] Drug Allergy 03-19-20 17 Unknown, Itching, Rash [facility] (15 sources) Codeine; Translations: [codeine] Drug Allergy 08-09-19 09 Unknown, Itching, Rash [facility] (20 sources) levoFLOXacin; Translations: [levofloxacin] Drug Allergy 03-19-20 17 Unknown, Itching, Rash, Nausea Only [facility] (20 sources) Morphine; Translations: [morphine] Drug Allergy 08-09-19 09 [facility] (14 sources) oxyCODONE Drug Allergy 12-03-19 16 [facility] (5 sources) Penicillins; Translations: [PENICILLINS] Drug Allergy 12-03-19 16 [facility] (1 source) Baclofen Drug Allergy [facility] (1 source) Codeine Drug Allergy [facility] (14 sources) levoFLOXacin; Translations: [Levaquin] Drug Allergy Unknown [facility] (1 source) Morphine Drug Allergy 05-04-18 94 [facility] (1 source) oxyCODONE Drug Allergy 05-04-19 05 [facility] (1 source) Penicillins Drug allergy (disorder) 05-04-18 93 [facility] (3 sources) traMADol; Translations: [Ultram] Drug Allergy [facility] (11 sources) Codeine Drug Allergy Unknown [facility] (14 sources) Penicillin; Translations: [penicillin] Drug Allergy Unknown [facility] (20 sources) traMADol; Translations: [tramadol] Drug Allergy 07-13-19 20 Itching [facility] (19 sources) zolpidem; Translations: [zolpidem] Drug Allergy 07-04-19 23 Unknown, Hives [facility] (6 sources) Penicillins Drug Allergy 12-03-19 16 Hives, Rash [facility] (1 source) Non-steroidal anti-inflammatory agent Drug allergy 02-02-20 13 Unknown [facility] Other (8 sources) sulfADIAZINE; Translations: [SULFADIAZINE] Drug Allergy 07-04-19 23 Comment:Sulfa [facility] Other (1 source) Ultram *ANALGESICS - OPIOID* Propensity to adverse reactions Unknown [facility] (1 source) Vioxx *ANALGESICS - ANTI-INFLAMMATORY * Propensity to adverse reactions Unknown [facility] (1 source) Penicillin G Benzathine & Proc Drug allergy Unknown [facility] (1 source) Morphine Sulfate (Concentrate) *ANALGESICS - OPIOI Propensity to adverse reactions Unknown [facility] Other (1 source) Allergies Reconciled Propensity to adverse reactions Unknown [facility] Other (1 source) patient allergy list reviewed by nurse or physicia Propensity to adverse reactions 02-02-20 13 Comment:Done [facility] Other (1 source) Vicodin *ANALGESICS - OPIOID* Propensity to adverse reactions Unknown [facility] Other (3 sources) calcitonin Drug allergy 10-28-19 24 Unknown, [facility] (10 sources) Penicillins Propensity to adverse reactions to drug 05-14-19 24 [facility] (1 source) Acetaminophen / HYDROcodone; Translations: [Vicodin] Drug Allergy [facility] (1 source) Adhesive Tape; Translations: [Tape] Propensity to adverse reactions (disorder) [facility] (5 sources) Adhesive agent; Translations: [ADHESIVE] Propensity to adverse reactions to drug 07-04-19 23 [facility] (5 sources) penicillin G benzathine / penicillin G procaine; Translations: [PENICILLIN G BENZATHIN,PROCAIN ] Drug Allergy 07-04-19 [facility] (7 sources) rofecoxib; Translations: [ROFECOXIB] Drug Allergy 07-04-19 23 [facility] (1 source) Morphine; Translations: [Morphine Sulfate] Drug Allergy [facility] (1 source) zolpidem; Translations: [Ambien] Drug Allergy [facility] (8 sources) Latex Propensity to adverse reactions to drug 06-19-19 24 [facility] (8 sources) *Adhesive Tape Propensity to adverse reactions 07-04-19 [facility] (6 sources) Cephalexin Drug Allergy 07-09-19 24 Nausea Only, Dry Mouth, [place] [facility] (2 sources) Acetaminophen Drug Allergy 10-28-19 [facility] (2 sources) HYDROcodone Drug Allergy 10-28-19 [facility] (2 sources) Penicillin G Benzathine Allergy to substance 10-28-19 [facility] Medications Current Medications Medication Drug Class(es) [...] x 1 month, then 2x/week for maintainence, [facility]/pharmacy #[id number], 165, cm, 02/11/23 10:41:00 EDT, Height/Length Dosing, 77.5, kg, 02/11/23 10:41:00 EDT, Weight Dosing 02/11/2023 Active Start: 02-11-2023 Estrace 0.1 mg /g Cream See Instructions, 42.5 gm, Refill(s) 3, apply pea size amount to urethra/inner vagina 3x/week x 1 month, then 2x/week for maintainence, [facility]/pharmacy #[id number], 165, cm, 02/11/23 10:41:00 [...] Daily, # 30 tab(s), Refills(s) 11, Pharmacy: [facility]/pharmacy #[id number], 165, cm, 02/11/23 10:41:00 [...] 6 03/31/2022 Active take 1 tablet by imrza th every twenty-four hours Klor-Con M20 20 [...] 2023 2:33pm Trospium Chlorid e Active Vitamins A,C,U-Xlno-Mnkrkt (Preservision Areds) 4,296 mcg-226 mg-90 mg capsule (2 sources) Start: 10-28-2023 take 1 capsule by mouth twice daily Vitamins A,C,C-Lvzi-Bbaaxh (Preservision Areds) 4,296 mcg-226 mg-90 mg capsule [...] Post-op/Post-Proc docusate sodium 50 mg / sennosides, half-way 8.6 mg oral tablet (1 source) Start: [...] Coronary arteriosclerosis; Translations: [Atherosclerotic heart disease of [place] coronary artery without angina pectoris] Onset: 07-29-2021 [...] 05-06-2023 Chronic Other aftercare (1 source) Other jail (current) drug therapy; Translations: [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] Onset: 06-11-2022 Episodic Other aftercare (1 source) Long-term current use of anticoagulant; 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] Onset: 02-11-2023 Episodic [...] 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 MAMM SCREENING BILATERAL W CAD MAMM [...] 2:57 PM 2 a FU ACR Normal [facility] 09-17-2023 CNPN Telephone (HEMASA) BETTIE BURNS ([id number]) 1945 F Date Time Provider Department 09/17/23 MATT ADAMS During your visit today, we recorded the following information about you: Matt Adams RN 09/17/2023 10:20 AM Signed Pt called to request yearly Mammogram order I have pended order as previously completed Pt requests to fax to Nori Lema [phone] BRM/HM: please review and sign if agreeable [...] mammogram for malignant neoplasm of breast [Z12.31] Order(s):[facility] SCREENING W YAW [[id number]] Order #: [id number] FUTURE Prescriptions as of 09/17/2023 - lisinopril [...] Status:Closed by ANDREW CHOI on 09/17/23 Normal [facility] [employer] SMEARon 08-22-2023 ACID FAST CULTURE Negative [facility] Comment on above: Result Comment: No a rosy fast bacilli isolated after 6 weeks. PERFORMED AT [facility] Performed By: #### U MAC, UMIC #### [place] [address] *RFLX-FUNGUSon 08-06-2023 RESULT 1 Comment Normal [facility] Comment on above: Result Comment: No y east or mold isolated after 4 weeks. PERFORMED AT [facility] Performed By: #### U MAC, UMIC #### Testing performed at [address] [address] FUNGUS CULTUREon 08-06-2023 FUNGUS CULTURE Final report Normal [facility] Comment on above: Result Comment: PERF ORMED AT [facility] Performed By: #### U MAC, UMIC #### Testing performed at [address] [address] CBC AND AUTO DIFFon 07-15-19 24 ABSOLUTE BASOPHIL 0.1 X10E9/L Normal 0.0-0.2 [facility] Comment on above: Performed By: #### C BCA, 80849-4, PINR, 39703-0, CMP, 35645-5, 21587-9, THYR, 33711-8 #### [facility] ([id number]) [address] [place] [address] ABSOLUTE NEUTROPHIL 2.8 X10E9/L Normal 1.5-6.6 [facility] Comment on above: Performed By: #### C BCA, 83838-3, PINR, 43615-9, CMP, 77152-0, 88160-3, THYR, 40256-2 #### [facility] ([id number]) [address] [place] [address] 34323 Basophils/100 WBC (Bld) 1.3 % Normal [facility] Comment on above: Performed By: #### C BCA, 07608-6, PINR, 38752-8, CMP, 45106-9, 46022-2, THYR, 30908-6 #### [facility] ([id number]) [address] [place] [address]858 Eosinophils (Bld) [#/Vol] 0.7 10*3/uL High 0.0-0.4 [facility] Comment on above: Performed By: #### C BCA, 41947-1, PINR, 06899-0, CMP, 73625-0, 19304-8, THYR, 05048-3 #### [facility] ([id number]) [address] [place] [address] Eosinophils/100 WBC (Bld) 11.9 % Normal [facility] Comment on above: Performed By: #### C BCA, 36644-4, PINR, 08822-8, CMP, 69944-0, 95639-3, THYR, 45564-6 #### [facility] ([id number]) [address] [place] [address]97[address] Erythrocyte distribution width (RBC) [Ratio] 13.5 % Normal 11.5-15.0 [facility] Comment on above: Performed By: #### C BCA, 33591-8, PINR, 45653-3, CMP, 86310-5, 40023-8, THYR, 16493-7 #### [facility] ([id number]) [address] [place] [address] Hematocrit (Bld) [Volume fraction] 38.5 % Normal 35-47 [facility] Comment on above: Performed By: #### C BCA, 88855-4, PINR, 82532-3, CMP, 40734-8, 70867-5, THYR, 88717-8 #### [facility] ([id number]) [address] [place] [address] Hemoglobin (Bld) [Mass/Vol] 13.3 g/dL Normal 11.7-15.5 [facility] Comment on above: Performed By: #### C BCA, 91399-4, PINR, 69322-9, CMP, 71451-8, 27481-1, THYR, 86551-8 #### [facility] ([id number]) [address] [place] [address] Lymphocytes (Bld) [#/Vol] 1.8 10*3/uL Normal 1.0-3.5 [facility] Comment on above: Performed By: #### C BCA, 63777-6, PINR, 82122-3, CMP, 14929-2, 39092-3, THYR, 29684-2 #### [facility] ([id number]) [address] [place] [address] 71252 Lymphocytes/100 WBC (Bld) 29.4 % Normal [facility] Comment on above: Performed By: #### C BCA, 46127-9, PINR, 47603-3, CMP, 06721-9, 40474-6, THYR, 89024-5 #### [facility] ([id number]) [address] [place] [address] 87087 MCH (RBC) [Entitic mass] 32.8 pg Normal 27-34 [facility] Comment on above: Performed By: #### C BCA, 41216-4, PINR, 66031-2, CMP, 02097-9, 30581-7, THYR, 27738-6 #### [facility] ([id number]) [address] [place] [address] MCHC (RBC) [Mass/Vol] 34.4 g/dL Normal 32-36 [facility] Comment on above: Performed By: #### C BCA, 96331-6, PINR, 90321-7, CMP, 62754-9, 21749-8, THYR, 84651-5 #### [facility] ([id number]) [address] [place] [address] [place] [address] MCV (RBC) [Entitic vol] 95 fL Normal 80-100 [facility] Comment on above: Performed By: #### C BCA, 71581-7, PINR, 61431-4, CMP, 64072-9, 64492-9, THYR, 40243-4 #### [facility] ([id number]) [address] [place] [address] [place] [address] Monocytes (Bld) [#/Vol] 0.8 10*3/uL Normal 0-0.9 [facility] Comment on above: Performed By: #### C BCA, 74668-8, PINR, 61224-5, CMP, 94631-3, 40266-7, THYR, 86800-3 #### [facility] ([id number]) [address] [place] [address] 15812 Monocytes/100 WBC (Bld) 13.2 % Normal [facility] Comment on above: Performed By: #### C BCA, 97757-6, PINR, 41144-9, CMP, 06931-6, 09865-5, THYR, 00723-7 #### [facility] ([id number]) [address] [place] [address] Neutrophils/100 WBC (Bld) 44.2 % Normal [facility] Comment on above: Performed By: #### C BCA, 49234-6, PINR, 19805-6, CMP, 31112-0, 29484-2, THYR, 81130-7 #### [facility] ([id number]) [address] [place] [address] [place] [address] Platelet mean volume (Bld) [Entitic vol] 6.9 fL Low 7-12 [facility] Comment on above: Performed By: #### C BCA, 88932-6, PINR, 57907-1, CMP, 69648-1, 44174-7, THYR, 52742-7 #### [facility] ([id number]) [address] [place] [address] Platelets (Bld) [#/Vol] 340 10*3/uL Normal 150-450 [facility] Comment on above: Performed By: #### C BCA, 59642-0, PINR, 28991-7, CMP, 38582-7, 72680-4, THYR, 26664-4 #### [facility] ([id number]) [address] [place] [address] 70372 RBC COUNT 4.05 X10E12/L Normal 3.80-5.20 [facility] Comment on above: Performed By: #### C BCA, 69932-2, PINR, 62213-1, CMP, 54258-6, 61955-7, THYR, 31951-7 #### [facility] ([id number]) [address] [place] [address]91 WBC (Bld) [#/Vol] 6.2 10*3/uL Normal 4.0-11.0 [facility] Comment on above: Performed By: #### C BCA, 82589-7, PINR, 30793-2, CMP, 48825-4, 84668-7, THYR, 77744-6 #### [facility] ([id number]) [address] [place] [address] COMPREHENSIVE METABOLIC PANE [facility] 07-15-2023 Albumin [Mass/Vol] 3.5 g/dL Normal 3.2-5.3 [facility] Comment on above: Performed By: #### C BCA, 81513-0, PINR, 17269-7, CMP, 28460-9, 25329-7, THYR, 22855-6 #### [facility] ([id number]) [address] [place] [address]346 ALP [Catalytic activity/Vol] 52 U/L Normal 39-130 [facility] Comment on above: Performed By: #### C BCA, 01554-2, PINR, 29915-3, CMP, 16676-8, 39295-6, THYR, 72823-5 #### [facility] ([id number]) [address] [place] [address] 97916 ALT [Catalytic activity/Vol] 13 U/L Normal 0-31 [facility] Comment on above: Performed By: #### C BCA, 76191-9, PINR, 14755-5, CMP, 25557-8, 26842-1, THYR, 79594-4 #### [facility] ([id number]) [address] [place] [address] Anion gap [Moles/Vol] 10 mmol/L Normal 5-15 [facility] Comment on above: Performed By: #### C BCA, 40852-3, PINR, 61736-5, CMP, 92294-6, 25832-1, THYR, 19881-9 #### [facility] ([id number]) [address] [place] [address]4680 AST [Catalytic activity/Vol] 24 U/L Normal 0-41 [facility] Comment on above: Performed By: #### C BCA, 09845-0, PINR, 68827-0, CMP, 29595-4, 95438-9, THYR, 74351-2 #### [facility] ([id number]) [address] [place] [address] 70136 Bilirubin [Mass/Vol] 0.7 mg/dL Normal 0.3-1.2 [facility] Comment on above: Performed By: #### C BCA, 15227-4, PINR, 41394-0, CMP, 03420-0, 13711-9, THYR, 28726-0 #### [facility] ([id number]) [address] [place] [address] 00821 Calcium [Mass/Vol] 9.4 mg/dL Normal 8.5-10.5 [facility] Comment on above: Performed By: #### C BCA, 69176-6, PINR, 54248-8, CMP, 90483-1, 43058-8, THYR, 80380-1 #### [facility] ([id number]) [address] [place] [address] 79637 Chloride [Moles/Vol] 102 mmol/L Normal 98-109 [facility] Comment on above: Performed By: #### C BCA, 74003-3, PINR, 88581-0, CMP, 54441-9, 11506-4, THYR, 38349-2 #### [facility] ([id number]) [address] [place] [address] 76178 CO2 [Moles/Vol] 27 mmol/L Normal 22-32 [facility] Comment on above: Performed By: #### C BCA, 83716-4, PINR, 01076-7, CMP, 62316-4, 45312-1, THYR, 80231-1 #### [facility] ([id number]) [address] [place] [address] 66873 Creatinine [Mass/Vol] 1.21 mg/dL High 0.40-1.00 [facility] Comment on above: Result Comment: METH OD TRACEABLE TO IDMS STANDARD Performed By: #### C BCA, 35415-6, PINR, 91342-6, CMP, 23773-4, 34761-6, THYR, 56291-5 #### [facility] ([id number]) [address] [place] [address] 72614 GFR/1.73 sq M.predicted among non-blacks MDRD (S/P/Bld) [Vol rate/Area] 46 mL/min/{1.73_m2} Low >59 [facility] Comment on above: Result Comment: Reported eGFR is based on the CKD-EPI 2020 equation that does not use a race coefficient. Performed By: #### C BCA, 28041-2, PINR, 34575-4, CMP, 71416-8, 48018-2, THYR, 35809-3 #### [facility] ([id number]) [address] [place] [address] 77571 Glucose [Mass/Vol] 120 mg/dL High 65-99 [facility] Comment on above: Performed By: #### C BCA, 80045-0, PINR, 12905-9, CMP, 74684-4, 13439-9, THYR, 47802-2 #### [facility] ([id number]) [address] [place] [address] 90905 Potassium [Moles/Vol] 4.0 mmol/L Normal 3.5-5.0 [facility] Comment on above: Performed By: #### C BCA, 42132-5, PINR, 96397-0, CMP, 06137-4, 80579-1, THYR, 92807-1 #### [facility] ([id number]) [address] [place] [address] 05427 Protein [Mass/Vol] 6.8 g/dL Normal 6.0-8.0 [facility] Comment on above: Performed By: #### C BCA, 57700-5, PINR, 07760-5, CMP, 34486-4, 97731-1, THYR, 63213-0 #### [facility] ([id number]) [address] [place] [address] 78817 Sodium [Moles/Vol] 139 mmol/L Normal 134-146 [facility] Comment on above: Performed By: #### C BCA, 44645-4, PINR, 47349-6, CMP, 16036-5, 67295-1, THYR, 27039-9 #### [facility] ([id number]) [address] [place] [address] 44694 Urea nitrogen [Mass/Vol] 31 mg/dL High 5-27 [facility] Comment on above: Performed By: #### C BCA, 01205-4, PINR, 21694-6, CMP, 10339-5, 55969-3, THYR, 47775-6 #### [facility] ([id number]) [address] [place] [address] 84629 Fibrin D-dimer DDU (PPP) [Ma ss/Vol]on 07-15-2023 D DIMER 220 ng/mL DDU Normal <255 [facility] Comment on above: Result Comment: Results <255 ng/mL DDU: The presence of a VTE can safely be excluded with a negative D-Dimer result and Wells score. A negative result doesn't exclude the possibility of DIC. The test be repeated along with other diagnostic tests if the patient's symptoms persist or worsen. [email or web address] Performed By: #### C BCA, 90646-0, PINR, 95903-9, CMP, 35275-9, 59651-0, THYR, 27108-7 #### [facility] ([id number]) [address] [place] [address] 07220 MAGNESIUMon 07-15-2023 Magnesium [Mass/Vol] 1.8 mg/dL Normal 1.8-2.6 [facility] Comment on above: Performed By: #### C BCA, 56373-7, PINR, 90879-7, CMP, 94696-8, 13398-5, THYR, 89647-8 #### [facility] ([id number]) [address] [place] [address] 27547 Natriuretic peptide B [Mass/ Vol]on 07-15-2023 Natriuretic peptide B (Bld) [Mass/Vol] 119 pg/mL High <100.0 [facility] Comment on above: Performed By: #### C BCA, 59772-9, PINR, 56687-6, CMP, 18250-2, 31975-6, THYR, 23241-2 #### [facility] ([id number]) [address] [place] [address] 63823 PROTIME AND INRon 07-15-2023 INR Coag (PPP) [Relative time] 1.8 {INR} High 0.8-1.1 [facility] Comment on above: Performed By: #### C BCA, 76546-5, PINR, 25788-6, CMP, 17117-4, 14158-6, THYR, 63140-3 #### [facility] ([id number]) [address] [place] [address] 88003 PT Coag (PPP) [Time] 20.8 s High 9.8-13.2 [facility] Comment on above: Result Comment: NEW REFERENCE RANGE Performed By: #### C BCA, 54917-2, PINR, 20831-1, CMP, 78146-8, 02615-7, THYR, 75544-2 #### [facility] ([id number]) [address] [place] [address] 78477 THYROID PROFILEon 07-15-2023 Free T4 [Mass/Vol] 1.25 ng/dL Normal 0.61-1.60 [facility] Comment on above: Performed By: #### C BCA, 77639-7, PINR, 66763-3, CMP, 35072-9, 19780-4, THYR, 56310-8 #### [facility] ([id number]) [address] [place] [address] 50756 TSH 1.69 uIU/mL Normal 0.49-4.67 [facility] Comment on above: Performed By: #### C BCA, 66461-0, PINR, 08875-3, CMP, 45589-0, 54559-7, THYR, 81881-5 #### [facility] ([id number]) [address] [place] [address] 26843 TROPONIN Ion 07-15-2023 Troponin I.cardiac [Mass/Vol] 0.01 ng/mL Normal 0.00-0.04 [facility] Comment on above: Performed By: #### C BCA, 56991-8, PINR, 92589-0, CMP, 23163-6, 64353-9, THYR, 99647-4 #### [facility] ([id number]) [address] [place] [address] 97783 XR CHEST 2 VWSon 07-15-2023 XR CHEST 2 VWS XR CHEST 2 VWS History: chest pressure Exam/Technique: PA and lateral chest Comparison: None. Findings: There is no evidence of active pulmonary or pleural disease. Cardiac and mediastinal contours are within normal limits. Left-sided surgical clips. Granulomatous changes. IMPRESSION: No active pulmonary disease. Finalized by Adrian Ervin MD on 07/15/2023 1:14 PM Normal [facility] aPTT Coag (PPP) [Time]on aPTT Coag (Bld) [Time] 36 s Normal 26-37 [facility] Comment on above: Result Comment: NEW REFERENCE RANGE Performed By: #### C BCA, 35180-7, PINR, 71748-5, CMP, 61469-7, 32973-0, THYR, 16597-9 #### [facility] ([id number]) [address] [place] [address], [place] [address] AFB SMEARon 07-09-2023 ACID FAST SMEAR Negative Normal [facility] Comment on above: Result Comment: [facility] Performed By: #### U MAC, UMIC #### Testing performed at [address] [address] BASIC METABOLIC PANELon Anion gap [Moles/Vol] 1 mmol/L MMOL/L [facility] Calcium [Mass/Vol] 8.7 mg/dL [facility] Chloride [Moles/Vol] 103 mmol/L [facility] Comment on above: Please note: Triglyc eride levels of 600mg/dL or higher may positively bias chloride results by approximately 2.1 mmol CO2 [Moles/Vol] 30 mmol/L [facility] Creatinine [Mass/Vol] 1.10 mg/dL [facility] GFR COMMENT Average GFR for 70+ years old = 75. [facility] Comment on above: Chronic Kidney disea se, GFR = <60. Kidney failure, GFR = <15. The GFR estimate is not adjusted for extreme body surface area or acute process, nor has it been validated for women or ethnic groups other than and . GFR/1.73 sq M.predicted among blacks MDRD (S/P/Bld) [Vol rate/Area] 62 mL/min/{1.73_m2} ml/min/1.73sq. m [facility] GFR/1.73 sq M.predicted among non-blacks MDRD (S/P/Bld) [Vol rate/Area] 51 mL/min/{1.73_m2} ml/min/1.73sq. m [facility] Glucose post fast [Mass/Vol] 141 mg/dL High [facility] Comment on above: NORMAL <100 mg/dL PREDIABETES 101-126 mg/dL DIABETES 126 mg/dL or higher Interpretation and review of laboratory results Abnormal [facility] Potassium [Moles/Vol] 3.8 mmol/L [facility] Sodium [Moles/Vol] 134 mmol/L Low [facility] Urea nitrogen [Mass/Vol] 30 mg/dL High [facility] BMP FASTINGon 2023 Anion gap [Moles/Vol] 1 mmol/L Normal [facility] Comment on above: Performed By: #### U MAC, UMIC #### Testing performed at [address] [address] Calcium [Mass/Vol] 8.7 mg/dL Normal 8.4-10.2 [facility] Comment on above: Performed By: #### U MAC, UMIC #### Testing performed at [address] [address] Chloride [Moles/Vol] 103 mmol/L Normal 98-107 [facility] Comment on above: Result Comment: Kristine bryant note: Triglyceride levels of 600mg/dL or higher may positively bias chloride results by approximately 2.1 mmol Performed By: #### U MAC, UMIC #### Testing performed at [address] [address] CO2 [Moles/Vol] 30 mmol/L Normal 22-30 [facility] Comment on above: Performed By: #### U MAC, UMIC #### Testing performed at [address] [address] Creatinine [Mass/Vol] 1.10 mg/dL Normal 0.70-1.20 [facility] Comment on above: Performed By: #### U MAC, UMIC #### Testing performed at [address] [address] EST. GFR, 62 ml/min/1.73sq.m [facility] Comment on above: Performed By: #### U MAC, UMIC #### Testing performed at [address] [address] EST. GFR,Non 51 ml/min/1.73sq.m [facility] Comment on above: Performed By: #### U MAC, UMIC #### Testing performed at [address] [address] GFR Information Average GFR for 70+ years old = 75. [facility] Comment on above: Result Comment: Beauty Counselor juan diego Kidney disease, GFR = <60. Kidney failure, GFR = <15. The GFR estimate is not adjusted for extreme body surface area or acute process, nor has it been validated for women or ethnic groups other than and . Performed By: #### U MAC, UMIC #### Testing performed at [address] [address] Glucose [Mass/Vol] 141 mg/dL High 70-100 [facility] Comment on above: Result Comment: NORMAL <100 mg/dL PREDIABETES 101-126 mg/dL DIABETES 126 mg/dL or higher Performed By: #### U MAC, UMIC #### Testing performed at [address] [address] Potassium [Moles/Vol] 3.8 mmol/L Normal 3.5-5.1 [facility] Comment on above: Performed By: #### U MAC, UMIC #### Testing performed at [address] [address] Sodium [Moles/Vol] 134 mmol/L Low 137-145 [facility] Comment on above: Performed By: #### U MAC, UMIC #### Testing performed at [address] [address] Urea nitrogen [Mass/Vol] 30 mg/dL High 7-20 [facility] Comment on above: Performed By: #### U MAC, UMIC #### Testing performed at [address] [place] [address] CBCon 2023 ABSOLUTE BAS 0.0 10*3/uL Normal 0.0-0.2 [facility] Comment on above: Performed By: #### U MAC, UMIC #### Testing performed at [address] [place] [address] ABSOLUTE EOS 0.0 10*3/uL Normal 0.0-0.7 [facility] Comment on above: Performed By: #### U MAC, UMIC #### Testing performed at [address] [place] [address] ABSOLUTE NEUTROPHIL COUNT 5.2 10*3/uL Normal 1.4-6.5 [facility] Comment on above: Performed By: #### U MAC, UMIC #### Testing performed at [address] [place] [address] Basophils/100 WBC (Bld) 0.3 % Normal 0.0-2.0 [facility] Comment on above: Performed By: #### U MAC, UMIC #### Testing performed at [address] [place] [address] DTYPE AUTO DIFF Normal [facility] Comment on above: Performed By: #### U MAC, UMIC #### Testing performed at [address] [place] [address] Eosinophils/100 WBC (Bld) 0.0 % Normal 0.0-11.0 [facility] Comment on above: Performed By: #### U MAC, UMIC #### Testing performed at [address] [address] Lymphocytes (Bld) [#/Vol] 1.1 10*3/uL Low 1.2-3.4 [facility] Comment on above: Performed By: #### U MAC, UMIC #### Testing performed at [address] [place] [address] Lymphocytes/100 WBC (Bld) 16.4 % Low 20.0-55.0 [facility] Comment on above: Performed By: #### U MAC, UMIC #### Testing performed at [address] [address] Monocytes (Bld) [#/Vol] 0.3 10*3/uL Normal 0.0-0.7 [facility] Comment on above: Performed By: #### U MAC, UMIC #### Testing performed at [address] [address] Monocytes/100 WBC (Bld) 4.3 % Normal 0.0-10.0 [facility] Comment on above: Performed By: #### U MAC, UMIC #### Testing performed at [address] [address] Neutrophils/100 WBC (Bld) 79.0 % High 37.0-75.0 [facility] Comment on above: Performed By: #### U MAC, UMIC #### Testing performed at [address] [address] Erythrocyte distribution width (RBC) [Ratio] 13.2 % Normal 11.5-14.5 [facility] Comment on above: Performed By: #### U MAC, UMIC #### Testing performed at [address] [address] Hematocrit (Bld) [Volume fraction] 33.6 % Low 36.0-48.0 [facility] Comment on above: Performed By: #### U MAC, UMIC #### Testing performed at [address] [address] Hemoglobin (Bld) [Mass/Vol] 12.0 g/dL Normal 12.0-16.0 [facility] Comment on above: Performed By: #### U MAC, UMIC #### Testing performed at [address] [address] MCH (RBC) [Entitic mass] 33.6 pg Normal 26.0-35.0 [facility] Comment on above: Performed By: #### U MAC, UMIC #### Testing performed at [address] [address] MCHC (RBC) [Mass/Vol] 35.6 g/dL Normal 27.0-37.0 [facility] Comment on above: Performed By: #### U MAC, UMIC #### Testing performed at [address] [address] MCV (RBC) [Entitic vol] 94.2 fL Normal 80.0-100.0 [facility] Comment on above: Performed By: #### U LIYAH DONOVAN #### Testing performed at [address] [address] Platelet mean volume (Bld) [Entitic vol] 7.0 fL Low 7.4-11.0 [facility] Comment on above: Performed By: #### U VENUS, UM #### Testing performed at [address] [address] Platelets (Bld) [#/Vol] 226 10*3/uL Normal 130-400 [facility] Comment on above: Performed By: #### U VENUS, LIYAH #### Testing performed at [address] [address] RBC (Bld) [#/Vol] 3.57 10*6/uL Low 4.0-5.4 [facility] Comment on above: Performed By: #### Prem DONOVAN UMROSETTE #### Testing performed at [address] [address] WBC (Bld) [#/Vol] 6.6 10*3/uL Normal 3.6-11.0 [facility] Comment on above: Performed By: #### U VENUS, UM #### Testing performed at [address] [address] CBC, EDIF, PLATELETon 2023 ABSOLUTE BASOPHIL COUNT 0.0 10*3/uL 0.0 - 0.2 10*3/uL [facility] Basophils/100 WBC (Bld) 0.3 % 0.0 - 2.0 % [facility] Differential cell count method Nom (Bld) AUTO DIFF % [facility] Eosinophils (Bld) [#/Vol] 0.0 10*3/uL 0.0 - 0.7 10*3/uL [facility] Eosinophils/100 WBC (Bld) 0.0 % 0.0 - 11.0 % [facility] Erythrocyte distribution width (RBC) [Ratio] 13.2 % 11.5 - 14.5 % [facility] Hematocrit (Bld) [Volume fraction] 33.6 % Low 36.0 - 48.0 % [facility] Hemoglobin (Bld) [Mass/Vol] 12.0 g/dL [facility] Interpretation and review of laboratory results Abnormal [facility] Lymphocytes (Bld) [#/Vol] 1.1 10*3/uL Low 1.2 - 3.4 10*3/uL [facility] Lymphocytes/100 WBC (Bld) 16.4 % Low 20.0 - 55.0 % [facility] MCH (RBC) [Entitic mass] 33.6 pg 26.0 - 35.0 PG [facility] MCHC (RBC) [Mass/Vol] 35.6 g/dL [facility] MCV (RBC) [Entitic vol] 94.2 fL [facility] Monocytes (Bld) [#/Vol] 0.3 10*3/uL 0.0 - 0.7 10*3/uL [facility] Monocytes/100 WBC (Bld) 4.3 % 0.0 - 10.0 % [facility] Neutrophils (Bld) [#/Vol] 5.2 10*3/uL 1.4 - 6.5 10*3/uL [facility] Neutrophils/100 WBC (Bld) 79.0 % High 37.0 - 75.0 % [facility] Platelet mean volume (Bld) [Entitic vol] 7.0 fL Low [facility] Platelets (Bld) [#/Vol] 226 10*3/uL 130 - 400 10*3/uL [facility] RBC (Bld) [#/Vol] 3.57 10*6/uL Low 4.0 - 5.4 10*6/uL [facility] WBC (Bld) [#/Vol] 6.6 10*3/uL 3.6 - 11.0 10*3/uL [facility] ANAEROBIC CULTUREon 07-07-19 ANAEROBIC CULTURE SPECIMEN DESCRIPTION HIP RIGHT SPECIAL REQUESTS RIGHT HIP SUTURE GRAM SMEAR NO * Result Note: WBC'S SEEN * * Result Note: NO ORGANISMS SEEN * CULTURE NO GROWTH 5 DAYS * Result Note: Testing performed at [facility], [place], [place] [address] * REPORT STATUS 07/12/2023 * Result Note: FINAL * Normal [facility] Comment on above: Performed By: #### U MAC, UMIC #### Testing performed at [facility] [address] [place] [address] ANAEROBIC CULTURE SPECIMEN DESCRIPTION HIP RIGHT SPECIAL REQUESTS RIGHT HIP INCISIONAL FLUID GRAM SMEAR NO * Result Note: WBC'S SEEN * * Result Note: NO ORGANISMS SEEN * CULTURE NO GROWTH 5 DAYS * Result Note: Testing performed at [place] [address] * REPORT STATUS 07/12/2023 * Result Note: FINAL * Normal [facility] Comment on above: Performed By: #### A NER #### Testing performed at [address] [address] Testing performed at [address] [address] BODY FLUID CELL COUNTon Appearance (Body fld) HAZY [facility] Color (Body fld) LIGHT YELLOW [facility] RBC Auto (Body fld) [#/Vol] 3376 /CMM [facility] Specimen source Nom (Body fld) SYNOVIAL FLUID [facility] WBC (Body fld) [#/Vol] 57 10*3/uL /CMM [facility] DIFFERENTIAL, FLUIDon 2023 BASOPHILS, FLUID 2 % [facility] Comment on above: NO REFERENCE RANGE E STABLISHED Eosinophils/100 WBC (Body fld) 4 % [facility] Comment on above: NO REFERENCE RANGE E STABLISHED Lymphocytes/100 WBC (Body fld) 22 % [facility] Comment on above: NO REFERENCE RANGE E STABLISHED MESOTHELIAL CELLS, FLUID 8 % [facility] Comment on above: NO REFERENCE RANGE E STABLISHED Monocytes+Macrophag es/100 WBC Manual cnt (Body fld) 48 % [facility] Comment on above: NO REFERENCE RANGE E STABLISHED Neutrophils/100 WBC (Body fld) 16 % [facility] Comment on above: NO REFERENCE RANGE E STABLISHED [facility] FLUID CELL COUNTon FLUID APPEARANCE HAZY Normal [facility] Comment on above: Performed By: #### U MAC, UMIC #### Testing performed at [address] [place] [address] FLUID COLOR LIGHT YELLOW Normal [facility] Comment on above: Performed By: #### U MAC, UMIC #### Testing performed at [address] [place] [address] FLUID RBC'S 3376 /CMM Normal [facility] Comment on above: Performed By: #### U MAC, UMIC #### Testing performed at [address] [place] [address] FLUID TYPE SYNOVIAL FLUID Normal [facility] Comment on above: Performed By: #### U MAC, UMIC #### Testing performed at [address] [place] [address] TOTAL NUCLEATED CELLS 57 /CMM Normal [facility] Comment on above: Performed By: #### U MAC, UMIC #### Testing performed at [address] [address] FLUID DIFFERENTIALon 024 FLUID BASOPHILS 2 % Normal [facility] Comment on above: Result Comment: NO R EFERENCE RANGE ESTABLISHED Performed By: #### F DIFF #### Testing performed at [address] [place] [address] FLUID EOSINOPHILS 4 % Normal [facility] Comment on above: Result Comment: NO R EFERENCE RANGE ESTABLISHED Performed By: #### F DIFF #### Testing performed at [address] [address] FLUID LYMPHOCYTES 22 % Normal [facility] Comment on above: Result Comment: NO R EFERENCE RANGE ESTABLISHED Performed By: #### F DIFF #### Testing performed at [address] [place] [address] FLUID MESOTHELIALS 8 % Normal [facility] Comment on above: Result Comment: NO R EFERENCE RANGE ESTABLISHED Performed By: #### F DIFF #### Testing performed at [address] [place] [address] FLUID MONO/MACRO 48 % Normal [facility] Comment on above: Result Comment: NO R EFERENCE RANGE ESTABLISHED Performed By: #### F DIFF #### Testing performed at [address] [place] [address] FLUID NEUTROPHILS 16 % Normal [facility] Comment on above: Result Comment: NO R EFERENCE RANGE ESTABLISHED Performed By: #### F DIFF #### Testing performed at [address] [address] MRSA SCREENon 07-07-2023 MRSA DNA CHRISTOPHER+probe Ql (Unsp spec) Negative Normal NEGATIVE [facility] Comment on above: Performed By: #### M RSAST #### Testing performed at [address] [address] STAPH AUREUS SCREEN Negative Normal NEGATIVE [facility] Comment on above: Result Comment: TEST ING PERFORMED BY PCR Performed By: #### M RSAST #### Testing performed at [address] [address] REPEAT ABO/RHon 07-07-2023 REPEAT ABO/RH Positive Normal [facility] Comment on above: Performed By: #### U MAC, UMIC #### Testing performed at [address] [address] REPEAT ABO/RH (D) TYPINGon 0 07-07-2023 ABO and Rh group Nom (Bld ) Positive [facility] SCREEN: MRSA ONLY, NARES (IS OLATION SCREEN)on 07-07-2023 MRSA isol Org specific cx Ql (Nose) Negative NEGATIVE [facility] STAPHYOCOCCUS AUREUS BY PCR Negative NEGATIVE [facility] Comment on above: TESTING PERFORMED BY PCR [facility] WOUND CULTUREon 07-07-2023 WOUND CULTURE SPECIMEN DESCRIPTION HIP RIGHT SPECIAL REQUESTS RIGHT HIP INCISIONAL FLUID GRAM SMEAR NO * Result Note: WBC'S SEEN * * Result Note: NO ORGANISMS SEEN * CULTURE NO GROWTH 5 DAYS * Result Note: Testing performed at [place], [place] [address] * REPORT STATUS 07/12/2023 * Result Note: FINAL * Normal [facility] Comment on above: Performed By: #### U MAC, UMIC #### Testing performed at [address] [place] [address] XR PELVIS 1-2 VIEWSon 2023 XR PELVIS [...] other acute bony abnormality is seen. Normal [facility] XR Pelvis 2 Viewson 07-07-19 FINDINGS/IMPRESSION: 1. [...] or other acute bony abnormality is seen. [facility] Radiology Study observation (narrative) [facility] XR Pelvis 2 ViewsOrdered By: Parveen Mason on 07-07-2023 [facility] Work Phone: CBCon 06-25-2023 ABSOLUTE BAS 0.1 10*3/uL Normal 0.0-0.2 [facility] Comment on above: Performed By: #### U MAC, UMIC #### Testing performed at [address] [address] ABSOLUTE EOS 0.1 10*3/uL Normal 0.0-0.7 [facility] Comment on above: Performed By: #### U MAC, UMIC #### Testing performed at [address] [address] ABSOLUTE NEUTROPHIL COUNT 4.3 10*3/uL Normal 1.4-6.5 [facility] Comment on above: Performed By: #### U MAC, UMIC #### Testing performed at [address] [address] Basophils/100 WBC (Bld) 0.9 % Normal 0.0-2.0 [facility] Comment on above: Performed By: #### U MAC, UMIC #### Testing performed at [address] [place] [address] DTYPE AUTO DIFF Normal [facility] Comment on above: Performed By: #### U MAC, UMIC #### Testing performed at [address] [address] Eosinophils/100 WBC (Bld) 1.2 % Normal 0.0-11.0 [facility] Comment on above: Performed By: #### U MAC, UMIC #### Testing performed at [address] [address] Lymphocytes (Bld) [#/Vol] 2.5 10*3/uL Normal 1.2-3.4 [facility] Comment on above: Performed By: #### U MAC, UMIC #### Testing performed at [address] [address] Lymphocytes/100 WBC (Bld) 32.3 % Normal 20.0-55.0 [facility] Comment on above: Performed By: #### U MAC, UMIC #### Testing performed at [address] [address] Monocytes (Bld) [#/Vol] 0.8 10*3/uL High 0.0-0.7 [facility] Comment on above: Performed By: #### U MAC, UMIC #### Testing performed at [address] [address] Monocytes/100 WBC (Bld) 10.1 % High 0.0-10.0 [facility] Comment on above: Performed By: #### U MAC, UMIC #### Testing performed at [address] [address] Neutrophils/100 WBC (Bld) 55.5 % Normal 37.0-75.0 [facility] Comment on above: Performed By: #### U MAC, UMIC #### Testing performed at [address] [place] [address] Erythrocyte distribution width (RBC) [Ratio] 13.5 % Normal 11.5-14.5 [facility] Comment on above: Performed By: #### U MAC, UMIC #### Testing performed at [address] [address] Hematocrit (Bld) [Volume fraction] 43.9 % Normal 36.0-48.0 [facility] Comment on above: Performed By: #### U MAC, UMIC #### Testing performed at [address] [address] Hemoglobin (Bld) [Mass/Vol] 15.0 g/dL Normal 12.0-16.0 [facility] Comment on above: Performed By: #### U MAC, UMIC #### Testing performed at [address] [address] MCH (RBC) [Entitic mass] 32.6 pg Normal 26.0-35.0 [facility] Comment on above: Performed By: #### U MAC, UMIC #### Testing performed at [address] [address] MCHC (RBC) [Mass/Vol] 34.0 g/dL Normal 27.0-37.0 [facility] Comment on above: Performed By: #### U MAC, UMIC #### Testing performed at [address] [address] MCV (RBC) [Entitic vol] 95.8 fL Normal 80.0-100.0 [facility] Comment on above: Performed By: #### U MAC, UMIC #### Testing performed at [address] [address] Platelet mean volume (Bld) [Entitic vol] 7.3 fL Low 7.4-11.0 [facility] Comment on above: Performed By: #### U MAC, UMIC #### Testing performed at [address] [address] Platelets (Bld) [#/Vol] 286 10*3/uL Normal 130-400 [facility] Comment on above: Performed By: #### U MAC, UMIC #### Testing performed at [address] [address] RBC (Bld) [#/Vol] 4.59 10*6/uL Normal 4.0-5.4 [facility] Comment on above: Performed By: #### U MAC, UMIC #### Testing performed at [address] [address] WBC (Bld) [#/Vol] 7.8 10*3/uL Normal 3.6-11.0 [facility] Comment on above: Performed By: #### U MAC, UMIC #### Testing performed at [address] [address] CMP FASTINGon 06-25-2023 A:G RATIO 1.4 RATIO Normal [facility] Comment on above: Performed By: #### U MAC, UMIC #### Testing performed at [address] [address] ALBUMIN 4.4 G/dl Normal 3.5-5.0 [facility] Comment on above: Performed By: #### U MAC, UMIC #### Testing performed at [address] [address] ALP [Catalytic activity/Vol] 54 U/L Normal 38-126 [facility] Comment on above: Performed By: #### U MAC, UMIC #### Testing performed at [address] [address] ALT [Catalytic activity/Vol] 22 U/L Normal <35 [facility] Comment on above: Performed By: #### U MAC, UMIC #### Testing performed at [address] [address] AST [Catalytic activity/Vol] 32 U/L Normal 14-36 [facility] Comment on above: Performed By: #### U MAC, UMIC #### Testing performed at [address] [address] Bilirubin [Mass/Vol] 0.5 mg/dL Normal 0.2-1.3 [facility] Comment on above: Performed By: #### U MAC, UMIC #### Testing performed at [address] [address] Calcium [Mass/Vol] 9.9 mg/dL Normal 8.4-10.2 [facility] Comment on above: Performed By: #### U MAC, UMIC #### Testing performed at [address] [address] Chloride [Moles/Vol] 100 mmol/L Normal 98-107 [facility] Comment on above: Result Comment: Kristine bryant note: Triglyceride levels of 600mg/dL or higher may positively bias chloride results by approximately 2.1 mmol Performed By: #### U MAC, UMIC #### Testing performed at [address] [address] CO2 [Moles/Vol] 33 mmol/L High 22-30 [facility] Comment on above: Performed By: #### U MAC, UMIC #### Testing performed at [address] [address] Creatinine [Mass/Vol] 1.10 mg/dL Normal 0.70-1.20 [facility] Comment on above: Performed By: #### U MAC, UMIC #### Testing performed at [address] [address] EST. GFR, 62 ml/min/1.73sq.m [facility] Comment on above: Performed By: #### U MAC, UMIC #### Testing performed at [address] [address] EST. GFR,Non 51 ml/min/1.73sq.m [facility] Comment on above: Performed By: #### U MAC, UMIC #### Testing performed at [address] [address] GFR Information Average GFR for 70+ years old = 75. Normal [facility] Comment on above: Result Comment: Beauty Counselor juan diego Kidney disease, GFR = <60. Kidney failure, GFR = <15. The GFR estimate is not adjusted for extreme body surface area or acute process, nor has it been validated for women or ethnic groups other than and . Performed By: #### U MAC, UMIC #### Testing performed at [address] [address] Glucose [Mass/Vol] 114 mg/dL High 70-100 [facility] Comment on above: Result Comment: NORMAL <100 mg/dL PREDIABETES 101-126 mg/dL DIABETES 126 mg/dL or higher Performed By: #### U MAC, UMIC #### Testing performed at [address] [address] Potassium [Moles/Vol] 3.1 mmol/L Low 3.5-5.1 [facility] Comment on above: Performed By: #### U MAC, UMIC #### Testing performed at [address] [address] Protein [Mass/Vol] 7.6 g/dL Normal 6.3-8.2 [facility] Comment on above: Performed By: #### U MAC, UMIC #### Testing performed at [address] [address] Sodium [Moles/Vol] 139 mmol/L Normal 137-145 [facility] Comment on above: Performed By: #### U MAC, UMIC #### Testing performed at [address] [address] Urea nitrogen [Mass/Vol] 31 mg/dL High 7-20 [facility] Comment on above: Performed By: #### U MAC, UMIC #### Testing performed at [address] [address] ESRon 06-25-2023 ESR (Bld) [Velocity] 7 mm/h Normal 0-30 [facility] Comment on above: Performed By: #### U MAC, UMIC #### Testing performed at [address] [address] HEMOGLOBIN A1Con 06-25-2023 Glucose [Mass/Vol] 131 mg/dL Normal [facility] Comment on above: Performed By: #### H A1CT #### Testing performed at [address] [address] HbA1c (Bld) [Mass fraction] 6.2 % High 0-6 [facility] Comment on above: Result Comment: NORMAL <5.7% PREDIABETES 5.7-6.4% DIABETES 6.5% OR HIGHER Performed By: #### H A1CT #### Testing performed at [address] [address] HS CRPon 06-25-2023 HS CRP 3.8 mg/L High 1.0-3.0 [facility] Comment on above: Performed By: #### U MAC, UMIC #### Testing performed at [address] [address] MRSA SCREENon 06-25-2023 MRSA DNA CHRISTOPHER+probe Ql (Unsp spec) Negative Normal NEGATIVE [facility] Comment on above: Performed By: #### U MAC, UMIC #### Testing performed at [address] [address] STAPH AUREUS SCREEN Negative Normal NEGATIVE [facility] Comment on above: Result Comment: TEST ING PERFORMED BY PCR Performed By: #### U MAC, UMIC #### Testing performed at [address] [address] PROTIMEon 06-25-2023 INR Coag (PPP) [Relative time] 1.23 {INR} High 0.85-1.10 [facility] Comment on above: Result Comment: 2.0-3.0 THERAPEUTIC RANGE 2.5-3.5 MECHANICAL VALVE RANGE Performed By: #### U MAC, UMIC #### Testing performed at [address] [address] PT Coag (PPP) [Time] 15.6 s High 11.8-14.4 [facility] Comment on above: Performed By: #### U MAC, UMIC #### Testing performed at [address] [address] TYPE AND SCREEN CROSSMATCH C ONVERTIBLEon 06-25-2023 TYPE AND SCREEN CROSSMATCH CONVERTIBLE UNITS ORDERED 2 WORKUP EXPIRES 07/10/2023,2359 ABO/RH(D) A POSITIVE ANTIBODY SCREEN NEGATIVE ARM BAND NUMBER [id number] Normal [facility] Comment on above: Performed By: #### U MAC, UMIC #### Testing performed at [address] [address] URINE MACROSCOPICon 06-25-19 24 Bilirubin Ql (U) Negative Normal NEGATIVE [facility] Comment on above: Performed By: #### U MAC, UMIC #### Testing performed at [address] [address] Clarity (U) HAZY Abnormal CLEAR [facility] Comment on above: Performed By: #### U MAC, UMIC #### Testing performed at [address] [place] [address] Color (U) YELLOW Normal YELLOW [facility] Comment on above: Performed By: #### U MAC, UMIC #### Testing performed at [address] [address] Glucose Ql (U) Negative Normal NEGATIVE [facility] Comment on above: Performed By: #### U MAC, UMIC #### Testing performed at [address] [address] pH (U) 5.5 [pH] Normal 5.0-7.0 [facility] Comment on above: Performed By: #### U MAC, UMIC #### Testing performed at [address] [address] URINE HEMOGLOBIN SMALL Abnormal NEGATIVE [facility] Comment on above: Performed By: #### U MAC, UMIC #### Testing performed at [address] [address] URINE KETONE Negative Normal NEGATIVE [facility] Comment on above: Performed By: #### U MAC, UMIC #### Testing performed at [address] [address] URINE LEUKOTEST SMALL Abnormal NEGATIVE [facility] Comment on above: Performed By: #### U MAC, UMIC #### Testing performed at [address] [address] URINE NITRATES Negative Normal NEGATIVE [facility] Comment on above: Performed By: #### U MAC, UMIC #### Testing performed at [address] [address] URINE SPEC GRAVITY 1.015 Normal 1.010-1.025 [facility] Comment on above: Performed By: #### U MAC, UMIC #### Testing performed at [address] [address] URINE TOTAL PROTEIN Negative Normal NEGATIVE [facility] Comment on above: Performed By: #### U MAC, UMIC #### Testing performed at [address] [address] Urobilinogen Qn (U) 0.2 {Zenia'U}/dL Normal 0.2-1.0 [facility] Comment on above: Performed By: #### U MAC, UMIC #### Testing performed at [address] [address] URINE MICROSCOPICon 06-25-19 24 Bacteria LM.HPF (Urine sed) [#/Area] Negative Normal NEGATIVE [facility] Comment on above: Performed By: #### U MAC, UMIC #### Testing performed at [place] [id number] CASTS NONE Normal NONE [facility] Comment on above: Performed By: #### U MAC, UMIC #### [place] [address] CRYSTAL NONE Normal [facility] Comment on above: Performed By: #### U MAC, UMIC #### Testing performed at [address] [address] Epithelial cells LM Ql (Urine sed) 10 TO 20 Normal [facility] Comment on above: Performed By: #### U MAC, UMIC #### Testing performed at [address] [address] Mucus Ql (Urine sed) Negative Normal NEGATIVE [facility] Comment on above: Performed By: #### U MAC, UMIC #### Testing performed at [address] [address] URINE COMMENT POSSIBLY CONTAMINATED SPECIMEN, CULTURE MUST BE ORDERED SEPARATELY IF DEEMED NECESSARY. Normal [facility] Comment on above: Performed By: #### U MAC, UMIC #### Testing performed at [address] [address] URINE RBC'S 1 TO 5 Normal NEGATIVE [facility] Comment on above: Performed By: #### U MAC, UMIC #### Testing performed at [address] [address] URINE WBC'S 1 TO 5 Normal NEGATIVE [facility] Comment on above: Performed By: #### U MAC, UMIC #### Testing performed at [address] [address] Pre-Certification Formon Pre-Certification Form [id number] #1.00TIFF Normal [facility] POCT EKGOrdered By: Samantha Gurrola on 06-02-2023 [facility] th System MRI HIP RIGHT WITHOUT CONTRA [...] tendons as discussed in detail above. 3. Jlzuw-av-wvvvnxqn amount of fluid along the lateral aspect of the greater trochanter in the distribution of the greater trochanteric bursa may relate to postoperative seroma or bursitis. 4. No acute bony finding. Normal marrow signal. NOTE: Other chronic/incidental findings are discussed above. Normal [facility] Screenson 05-28-2023 Screens [id number] #1.00TIFF Normal [facility] Patient Educationon 05-27-19 Patient Education Obstetrics [...] provider. Document Revised: 08/29/2021 Document Reviewed: 08/29/2021 [employer] Patient Education ? 2022 [employer] [facility] Urology Office/Clinic Noteon 05-27-2023 Urology [...] a hematuria workup including a scope, at [facility]. Occasional visible blood w/UTI. UA today [...] discussed. Pt was referred for PFPT at [facility] at prior OV, [...] the office notified. -Kegels. 4. Anticoagulated (Z79.01: correction (current) use of anticoagulants) Pt does take Eliquis therapy. Elevated risk of periop complications 5. History of (more content not included)... Normal [facility] Comment on above: Result Comment: Elec tronically Signed By: Alfreda Miller MD\.br\Date and Time Signed: 05/27/23 19:56 EST\.br\Electronically Co-Signed By: Karlee Ramos.br\Date and Time Co-Signed: 05/27/23 10:23 EST COBALT AND CHROMIUMon 2023 CHROMIUM,WB 1.1 Normal [facility] Comment on above: Result Comment: Refe rence range: <3.0 Unit: ng/mL PERFORMED BY [employer] COBALT,WB <1.0 Normal [facility] Comment on above: Result Comment: Refe rence range: <3.0 Unit: ng/mL (NOTE) Chromium and cobalt analysis performed by inductively coupled plasma/mass spectrometry (ICP/MS). Reference range is for patients with mdguk-wm-xctnj (MoM) orthopedic implants. The [place] Association of Hip and Knee Surgeons, the [place] Academy of Orthopaedic Surgeons, and The Hip Society, have published a consensus statement, Risk Stratification Algorithm for Management of Patients with Lokny-jl-Sgmzk Hip Arthroplasty. The algorithm is intended as an aid to orthopedic surgeons in the assessment and management of patients with Ulvxm-kw-Qqzxe bearings. The systematic risk stratification includes recommendations [...] developed and its performance characteristics determined by [employer]. It has not been cleared or approved by the Food and Drug Administration. COBALT AND CHROMIUM,WBon Chromium (Bld) [Mass/Vol] 1.1 [facility] [employer] [facility] Comment on above: Reference range: <3. 0 Unit: ng/mL PERFORMED BY [employer] (Bld) [Mass/Vol] <1.0 [facility] Comment on above: Reference range: <3. 0 Unit: ng/mL (NOTE) Chromium and cobalt analysis performed by inductively coupled plasma/mass spectrometry (ICP/MS). Reference range is for patients with ygfov-df-bkfki (MoM) orthopedic implants. The [employer] Association of Hip and Knee Surgeons, the [place] Academy of Orthopaedic Surgeons, and The Hip Society, have published a consensus statement, Risk Stratification Algorithm for Management of Patients with Vysru-cg-Njuku Hip Arthroplasty. The algorithm is intended as an aid to orthopedic surgeons in the assessment and management of patients with Mrklc-ds-Ueese bearings. The systematic risk stratification includes recommendations [...] developed and its performance characteristics determined by [employer]. It has not been cleared or approved by the Food and Drug Administration. [facility] C REACTIVE PROTEINon 024 CRP [Mass/Vol] 48.4 mg/L High 0 - 10 MG/L [facility] System Interpretation and review of laboratory results Abnormal [facility] CRP [Mass/Vol] 48.4 mg/L High 0-10 [facility] Comment on above: Performed By: #### C REACT, ESR #### Testing performed at [address] [address] ESRon 05-14-2023 ESR (Bld) [Velocity] 31 mm/h High 0-30 [facility] Comment on above: Performed By: #### C REACT, ESR #### Testing performed at [address] [address] SEDIMENTATION RATE, AUTOMATE Don 05-14-2023 ESR (Bld) [Velocity] 31 mm/h [facility] Interpretation and review of laboratory results Abnormal [facility] Ambulatory Visit Summaryon 1 Ambulatory Visit Summary BETTIE BURNS :1945 Visit Date:02/11/2023 Ambulatory Visit Instructions Your Diagnosis Frequent UTI Microscopic hematuria Mixed incontinence Anticoagulated History of breast cancer Former smoker Tests Performed Urnls Dip Stick Auto w/o Microscopy POC [id number] Your Care Team Attending Physician - Alfreda Miller MD Primary Care Physician - ELLIOT STARKS MD [...] VILLEGAS, Alfreda Palacios Where: [facility] Lab Reportson 02-11-2023 Lab Reports [id number] 1#1.00TIFF [facility] Patient Educationon 02-12-20 23 Patient Education Obstetrics [...] provider. Document Revised: 08/29/2021 Document Reviewed: 08/29/2021 [employer] Patient Education ? 2022 [employer] Normal [facility] Physician Referralon 023 Physician Referral [id number] #1.00TIFF Normal [facility] Urinalysis - DIPSTICKon 10-03 Appearance (U) cloudy [employer] Other Bilirubin Ql (U) [employer] Other Color (U) yellow [employer] Other Glucose Ql (U) Negative [employer] Other Hemoglobin Ql (U) small [employer] Other Ketones Ql (U) Negative [employer] Other Leukocyte esterase Test strip Ql (U) moderate [employer] Other Nitrite Ql (U) Positive [employer] Other pH (U) 5 [pH] [employer] Other Protein Ql (U) Negative [employer] Other Specific gravity (U) [Rel density] 1.010 [employer] Other Urobilinogen (U) [Mass/Vol] off chart [employer] Other Urinalysis - DIPSTICK [employer] Other Urine Cultureon 10-27-2022 Bacteria identified Cx Nom (U) ORGANISM: Escherichia coli (O:ESCCOL) Gary Count >100,000 Aerobic AUBREY Charge (NMIC56) ----- [...] RESISTANT TO ALL B-LACTAM DRUGS. PERFORMED BY: [place] [address] PATHOLOGIST TANK CLEANER JOSE GUADALUPE FERGUSON M.D. [facility] Comment on above: Performed By: #### C UU #### [address] Urinalysis - DIPSTICKon 06-05 Appearance (U) cloudy [employer] Other Bilirubin Ql (U) Negative [employer] Other Color (U) pale yellow [employer] Other Glucose Ql (U) Negative [employer] Other Hemoglobin Ql (U) non hem-trace [employer] Other Ketones Ql (U) trace [employer] Other Leukocyte esterase Test strip Ql (U) moderate [employer] Other Nitrite Ql (U) Negative [employer] Other pH (U) 5 [pH] [employer] Other Protein Ql (U) trace [employer] Other Specific gravity (U) [Rel density] 1.005 [employer] Other Urobilinogen (U) [Mass/Vol] normal [employer] Other Urinalysis - DIPSTICK [employer] Other CULTURE URINEon 06-11-2022 CULTURE URINE Isolate [...] Trimethoprim/Sulfame thoxazole <=20 S F Normal [facility] Comment on above: Performed By: #### U RCX #### [facility] [address] [address] [address] Florencio Narayanan CARDIAC AMBER ADMITon 023 CK [Catalytic activity/Vol] 44 U/L Normal 26-192 [facility] Comment on above: Performed By: #### C MP, LIPA, CMADM #### [facility] [address] [place] [address] Dr. Florencio Narayanan CK.MB [Mass/Vol] ng/mL Normal <=3.60 [facility] Comment on above: Performed By: #### C BLAKE, LIPA, CMADM #### [facility] [address] [address] [address] Florencio Narayanan HSTROP 14.6 pg/mL Normal 4.0-51.3 [facility] Comment on above: Result Comment: CUT- OFF POINTS HAVE BEEN ESTABLISHED BASED ON THE FOURTH UNIVERSAL DEFINITIONS OF MYOCARDIAL INFARCTION. THE UPPER REFERENCE LIMIT (URL) OF TROPONIN, DEFINED THE 99TH PERCENTILE OF cTnI DISTRIBUTION IN A REFERENCE POPULATION, HAS BEEN CONFIRMED THE DECISION THRESHOLD FOR LA DIAGNOSIS. Performed By: #### C MP, LIPA, CMADM #### [facility] [address] [address] [address] Florencio Narayanan UMER 109 ng/mL Critically high 9-82 [facility] Comment on above: Performed By: #### C MP, LIPA, CMADM #### [facility] [address] [place] [address] Dr. Florencio Narayanan CBC AUTO DIFFon 02-06-2023 BASO # 0.1 103/ul Normal 0.0-0.1 [facility] Comment on above: Performed By: #### C BC #### [facility] [address] [place] [address] Dr. Florencio Narayanan Basophils/100 WBC (Bld) 0.4 % Normal 0.2-2.0 [facility] Comment on above: Performed By: #### C BC #### [facility] [address] [place] [address] Dr. Florencio Narayanan EO # 0.0 103/ul Normal 0.0-0.7 [facility] Comment on above: Performed By: #### C BC #### [facility] [address] [place] [address] Dr. Florencio Narayanan Eosinophils/100 WBC (Bld) 0.2 % Critically low 0.9-7.0 [facility] Comment on above: Performed By: #### C BC #### [facility] [address] [place] [address] Dr. Florencio Narayanan Erythrocyte distribution width (RBC) [Ratio] 12.3 % Normal 11.0-15.0 [facility] Comment on above: Performed By: #### C BC #### [facility] [address] [place] [address] Dr. Florencio Narayanan Hematocrit (Bld) [Volume fraction] 38.4 % Normal 36.0-48.0 [facility] Comment on above: Performed By: #### C BC #### [facility] [address] [place] [address] Dr. Florencio Narayanan Hemoglobin (Bld) [Mass/Vol] 12.7 g/dL Normal 12.0-16.0 [facility] Comment on above: Performed By: #### C BC #### [facility] [address] [place] [address] Dr. Florencio Narayanan IG # 0.06 10e3/ul Critically high 0.00-0.03 [facility] Comment on above: Performed By: #### C BC #### [facility] [address] [place] [address] Dr. Florencio Narayanan IG % 0.5 % Normal 0.0-0.5 [facility] Comment on above: Performed By: #### C BC #### [facility] [address] [place] [address] Dr. Florencio Narayanan LYMPH # 1.0 103/ul Critically low 1.2-3.8 [facility] Comment on above: Performed By: #### C BC #### [facility] [address] [place] [address] Dr. Florencio Narayanan Lymphocytes/100 WBC (Bld) 8.4 % Critically low 20.5-60.0 [facility] Comment on above: Performed By: #### C BC #### [facility] [address] [place] [address] Dr. Florencio Narayanan MANUAL DIFF REQ NO Normal [facility] Comment on above: Performed By: #### C BC #### [facility] [address] [place] [address] Dr. Florencio Narayanan MCH (RBC) [Entitic mass] 32.4 pg Normal 26.7-34.0 [facility] Comment on above: Performed By: #### C BC #### [facility] [address] [place] [address] Dr. Florencio Narayanan MCHC (RBC) [Mass/Vol] 33.1 g/dL Normal 29.9-35.2 [facility] Comment on above: Performed By: #### C BC #### [facility] [address] [place] [address] Dr. Florencio Narayanan MCV (RBC) [Entitic vol] 98.0 fL Normal 81.0-99.0 [facility] Comment on above: Performed By: #### C BC #### [facility] [address] [place] [address] Dr. Florencio Narayanan MONO # 1.6 103/ul Critically high 0.3-0.8 [facility] Comment on above: Performed By: #### C BC #### [facility] [address] [place] [address] Dr. Florencio Narayanan Monocytes/100 WBC (Bld) 13.1 % Critically high 1.7-12.0 [facility] Comment on above: Performed By: #### C BC #### [facility] [address] [place] [address] Dr. Florencio Narayanan NEUT # 9.5 103/ul Critically high 1.4-6.5 [facility] Comment on above: Performed By: #### C BC #### [facility] [address] [place] [address] Dr. Florencio Narayanan Neutrophils/100 WBC (Bld) 77.4 % Critically high 43.0-75.0 [facility] Comment on above: Performed By: #### C BC #### [facility] [address] [place] [address] Dr. Florencio Narayanan Platelet mean volume (Bld) [Entitic vol] 9.4 fL Critically low 9.5-13.5 [facility] Comment on above: Performed By: #### C BC #### [facility] [address] [place] [address] Dr. Florencio Narayanan PLT 140 103/ul Critically low 150-450 [facility] Comment on above: Performed By: #### C BC #### [facility] [address] [place] [address] Dr. Florencio Narayanan RBC 3.92 106/ul Critically low 4.20-5.40 [facility] Comment on above: Performed By: #### C BC #### [facility] [address] [place] [address] Dr. Florencio Narayanan WBC 12.2 103/ul Critically high 4.0-11.0 [facility] Comment on above: Performed By: #### C BC #### [facility] [address] [place] [address] STROKE HEAD WOon [...] LUANA VILLAFANA Date: 2022-06-09 12:24 Normal [facility] Covid-19 PCR (CVDTB)on SARS-CoV-2 (COVID-19) RNA CHRISTOPHER+probe Ql (Unsp spec) Not detected Normal NOT DETECTED [facility] Comment on above: Result Comment: [...] for this test is supported by the Supervisor [employer] of Health and Human Service's declaration that [...] used). Performed By: #### C VDTB #### [facility] [address] [place] [address] Dr. Florencio Narayanan ER URINE PROFILEon 3 Bilirubin Ql (U) Negative Normal NEGATIVE [facility] Comment on above: Performed By: #### E ADIEL PIZANO #### [facility] [address] [place] [address] Dr. Florencio Narayanan Clarity (U) CLEAR Normal CLEAR [facility] Comment on above: Performed By: #### E LIYAH PIZANORO #### [facility] [address] [place] [address] Dr. Florencio Narayanan Color (U) LT. YELLOW Normal YELLOW [facility] Comment on above: Performed By: #### Malini PIZANO UMICRO #### [facility] [address] [address] [address] Florencio CONLEY A micrscopic examination will be performed if indicated. Normal [facility] Comment on above: Performed By: #### Malini PIZANO UMICRO #### [facility] [address] [address] [address] Florencio Narayanan Glucose Ql (U) Negative Normal NEGATIVE [facility] Comment on above: Performed By: #### Malini PIZANO UMICRO #### [facility] [address] [place] [address] Dr. Florencio Narayanan Hemoglobin Ql (U) LARGE Abnormal NEGATIVE [facility] Comment on above: Performed By: #### Malini PIZANO UMICRO #### [facility] [address] [place] [address] Dr. Florencio Narayanan Ketones Ql (U) TRACE Abnormal NEGATIVE [facility] Comment on above: Performed By: #### Malini PIZANO UMICRO #### [facility] [address] [place] [address] Dr. Florencio Narayanan LEUKOCYTES LARGE Abnormal NEGATIVE [facility] Comment on above: Performed By: #### Malini PIZANO UMICRO #### [facility] [address] [place] [address] Dr. Florencio Narayanan Nitrite Ql (U) Positive Abnormal NEGATIVE [facility] Comment on above: Performed By: #### MARIVEL LEICRO #### [facility] [address] [place] [address] Dr. Florencio Narayanan pH (U) 5.5 [pH] Normal 5-9 [facility] Comment on above: Performed By: #### MARIVEL LEICRO #### [facility] [address] [place] [address] Dr. Florencio Narayanan SPEC GRAVITY 1.010 Normal 1.005-<=1.025 [facility] Comment on above: Performed By: #### MARIVEL LEICRO #### [facility] [address] [place] [address] Dr. Florencio Narayanan UA PROTEIN TRACE Normal NEGATIVE/ TRACE [facility] Comment on above: Performed By: #### ADIEL LE #### [facility] [address] [place] [address] Dr. Florencio Narayanan UR MICRO IND INDICATED Normal [facility] Comment on above: Performed By: #### ADIEL LE #### [facility] [address] [place] [address] Dr. Florencio Narayanan Urobilinogen Qn (U) 0.2 {Zenia'U}/dL Normal 0.2 - 1. 0 [facility] Comment on above: Performed By: #### ADIEL LE #### [facility] [address] [place] [address] Dr. Florencio Narayanan LIPASEon 06-09-2022 Lipase [Catalytic activity/Vol] 68.0 U/L Critically low 73.0-393.0 [facility] Comment on above: Performed By: #### C MP, LIPA, CMADM #### [facility] [address] [place] [address] Dr. Florencio Narayanan PROF 14(COMP METB)on 023 Albumin [Mass/Vol] 2.5 g/dL Critically low 3.4-5.0 [facility] Comment on above: Performed By: #### C MP, LIPA, CMADM #### [facility] [address] [place] [address] Dr. Florencio Narayanan Albumin/Globulin [Mass ratio] 0.6 {ratio} Normal [facility] Comment on above: Performed By: #### C MP, LIPA, CMADM #### [facility] [address] [place] [address] Dr. Florencio Narayanan ALP [Catalytic activity/Vol] 150 U/L Critically high 46-116 [facility] Comment on above: Performed By: #### C MP, LIPA, CMADM #### [facility] [address] [place] [address] Dr. Florencio Narayanan ALT [Catalytic activity/Vol] 27 U/L Normal 14-59 [facility] Comment on above: Performed By: #### C MP, LIPA, CMADM #### [facility] [address] [place] [address] Dr. Florencio Narayanan Anion gap [Moles/Vol] 12.8 mmol/L Normal [facility] Comment on above: Performed By: #### C MP, LIPA, CMADM #### [facility] [address] [place] [address] Dr. Florencio Narayanan AST [Catalytic activity/Vol] 31 U/L Normal 15-37 [facility] Comment on above: Performed By: #### C MP, LIPA, CMADM #### [facility] [address] [place] [address] Dr. Florencio Narayanan Bilirubin [Mass/Vol] 1.1 mg/dL Critically high 0.2-1.0 [facility] Comment on above: Performed By: #### C MP, LIPA, CMADM #### [facility] [address] [place] [address] Dr. Florencio Narayanan Calcium [Mass/Vol] 9.1 mg/dL Normal 8.5-10.1 [facility] Comment on above: Performed By: #### C MP, LIPA, CMADM #### [facility] [address] [place] [address] Dr. Florencio Narayanan Chloride [Moles/Vol] 95 mmol/L Critically low 98-107 [facility] Comment on above: Performed By: #### C MP, LIPA, CMADM #### [facility] [address] [place] [address] Dr. Florencio Narayanan CO2 [Moles/Vol] 29.4 mmol/L Normal 21.0-32.[address] [facility] Comment on above: Performed By: #### C MP, LIPA, CMADM #### [facility] [address] [place] [address] Dr. Florencio Narayanan Creatinine [Mass/Vol] 1.34 mg/dL Critically high 0.55-1.02 [facility] Comment on above: Performed By: #### C MP, LIPA, CMADM #### [facility] [address] [address] [address] Florencio Narayanan EGFR-AF KENYAN 47 mL/min/1.73m2 Critically low >=60 [facility] Comment on above: Performed By: #### C MP, LIPA, CMADM #### [facility] [address] [address] [address] Florencio Narayanan EGFR-NON AF KENYAN 39 mL/min/1.73m2 Critically low >=60 [facility] Comment on above: Performed By: #### C MP, LIPA, CMADM #### [facility] [address] [place] [address] Dr. Florencio Narayanan Globulin (S) [Mass/Vol] 4.3 g/dL Normal [facility] Comment on above: Performed By: #### C MP, LIPA, CMADM #### [facility] [address] [place] [address] Dr. Florencio Narayanan Glucose [Mass/Vol] 118 mg/dL Critically high 74-106 T [facility] Comment on above: Performed By: #### C MP, LIPA, CMADM #### [facility] [address] [address] [address] Florencio Narayanan Potassium [Moles/Vol] 3.2 mmol/L Critically low 3.5-5.1 [facility] Comment on above: Performed By: #### C MP, LIPA, CMADM #### [facility] [address] [address] [address] Florencio Narayanan Protein [Mass/Vol] 6.8 g/dL Normal 6.4-8.2 [facility] Comment on above: Performed By: #### C MP, LIPA, CMADM #### [facility] [address] [place] [address] Dr. Florencio Narayanan Sodium [Moles/Vol] 134 mmol/L Critically low 136-145 Th [facility] Comment on above: Performed By: #### C MP, LIPA, CMADM #### [facility] [address] [place] [address] Dr. Florencio Narayanan Urea nitrogen [Mass/Vol] 29.0 mg/dL Critically high 7.0-18.0 [facility] Comment on above: Performed By: #### C LILIAN LOZANO CMADM #### [facility] [address] [place] [address] Dr. Florencio Narayanan Urea nitrogen/Creatinine [Mass ratio] 21.6 mg/mg Normal [facility] Comment on above: Performed By: #### C LILIAN LOZANO CMADM #### [facility] [address] [place] [address] Dr. Florencio Narayanan URINE MICROSCOPIC ONLYon BACTERIA SMALL Abnormal NONE SEEN [facility] Comment on above: Performed By: #### Malini PIZANO UMICRO #### [facility] [address] [place] [address] Dr. Florencio Narayanan Bacteria identified Cx Nom (U) INDICATED Normal [facility] Comment on above: Performed By: #### Malini PIZANO UMICRO #### [facility] [address] [place] [address] Dr. Florencio Narayanan CAST NONE SEEN Normal NONE SEEN [facility] Comment on above: Performed By: #### Malini PIZANO UMICRO #### [facility] [address] [place] [address] Dr. Florencio Narayanan Crystals LM Nom (Urine sed) NONE SEEN Normal NONE SEEN [facility] Comment on above: Performed By: #### Malini PIZANO UMICRO #### [facility] [address] [place] [address] Dr. Florencio Narayanan Epithelial cells LM Ql (Urine sed) FEW Abnormal NONE SEEN /RARE [facility] Comment on above: Performed By: #### Malini PIZANO UMICRO #### [facility] [address] [place] [address] Dr. Florencio Narayanan MUCOUS NONE SEEN Normal NONE SEEN [facility] Comment on above: Performed By: #### Malini PIZANO UMICRO #### [facility] [address] [place] [address] Dr. Florencio Narayanan RBC 2-5 Abnormal 0-2 [facility] Comment on above: Performed By: #### E ADIEL PIZANO #### [facility] [address] [address] [address] Florencio Narayanan WBC 10-20 Abnormal NONE SEEN [facility] Comment on above: Performed By: #### E ADIEL PIZANO #### [facility] [address] [place], [place] [address] Dr. Florencio Narayanan XR CHEST 2 Von [...] JOAQUÍN ATKINS Date: 2022-06-09 12:24 Normal [facility] CULTURE URINEon 04-16-2022 CULTURE URINE [...] Trimethoprim/Sulfame thoxazole >=320 R F Normal [facility] Comment on above: Performed By: #### C BC #### [facility] [address] [address] [address] Florencio Narayanan MRI Hip w/o Righton [...] by Ramon Ambrocio on 09/11/2021 1545 Normal [facility] Stopper Grinder Consult Reporton 03-14-2020 Consult Report [facility] CONSULTATION BETTIE BURNS 3ET [id number] OBSV ANABEL WATKINS MD [id number] REFERRING PHYSICIAN: CONSULTING PHYSICIAN: Renetta Almanzar MD DATE OF CONSULTATION: 03/11/2020 REASON: A near syncopal event in a 74-year-old female, with a history of atrial fibrillation, previous cardiac ablation, who was the time of evaluation noted to have a positive test for COVID. HISTORY OF PRESENT ILLNESS: Mrs. 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 Many thanks. RENETTA ALMANZAR MD BD/MedBoone /[id number] Normal [facility] BASICMETAon 03-11-2020 GFR AA >60 Normal [facility] Comment on above: Result Comment: Afri can Greek GFR Calc Medical judgement is necessary to [...] for drug dosing. Performed By: #### 1 49254, 746739, 634572 ####[facility] [address]jtjqj95421 [place] [address] Medical Director: Fahad Cast MD GFR/1.73 sq M predicted among non-blacks MDRD (S/P/Bld) [Vol rate/Area] 56 mL/min/1.73m? Normal [facility] Comment on above: Result Comment: [...] for drug dosing. Performed By: #### 1 65549, 995910, 707698 ####[facility] [address]il764[address] [place] [address] Medical Director: Fahad Cast MD Osmolality [Osmolality] 291 mOsm/kg Normal 275-295 [facility] Comment on above: Performed By: #### 1 19534, 385375, 947329 ####[facility] Nxxsjcqx04982 [place] [address] Medical Director: Fahad Cast MD Urea nitrogen/Creatinine [Mass ratio] 24.5 mg/mg Normal [facility] Comment on above: Performed By: #### 1 96667, 264023, 199176 ####[facility] [address]bj[address]ty99554 [place] [address] Medical Director: Fahad Cast MD Calcium [Mass/Vol] 9.3 mg/dL Normal 8.5-10.5 [facility] Comment on above: Performed By: #### 1 35477, 638158, 093299 ####[facility] [address]etuj47597 [place] [address] Medical Director: Fahad Cast MD Chloride [Moles/Vol] 108 mmol/L Normal 100-109 [facility] Comment on above: Performed By: #### 1 54384, 814179, 792727 ####[facility] [address]wemmf92189 [place] [address] Medical Director: Fahad Cast MD CO2, venous 28.9 mmol/L Normal 21.0-32.0 [facility] Comment on above: Performed By: #### 1 90306, 594514, 163095 ####[facility] [address] [place] [address] Medical Director: Fahad Cast MD Creatinine [Mass/Vol] 1.0 mg/dL Normal 0.6-1.0 [facility] Comment on above: Performed By: #### 1 97864, 409027, 452333 ####[facility] X[address]hqcvt66225 [place] [address] Medical Director: Fahad Cast MD Glucose [Mass/Vol] 98 mg/dL Normal 72-100 [facility] Comment on above: Result Comment: Sharon puncture should occur prior to sulfasalazine administration due to the potential for falsely depressed results. Venipuncture should occur prior to sulfapyridine administration due to the potential falsely elevated results. Baseline assay values before administration of sulfasalazine and sulfapyridine therapy would not be affected. Performed By: #### 1 65758, 380109, 507860 ####[facility] [address]zngxtea36698 [place] [address] [facility] Director: Fahad Cast MD Potassium [Moles/Vol] 4.2 mmol/L Normal 3.5-5.1 [facility] Comment on above: Performed By: #### 1 57819, 818575, 204580 ####[facility] [address]qpd[address] [place] [address] [facility] Director: Fahad Cast MD Sodium [Moles/Vol] 144 mmol/L Normal 135-145 [facility] Comment on above: Performed By: #### 1 70402, 769557, 694627 ####[facility] [address]uphvs04496 [place] [address] [facility] Director: Fahad Cast MD Urea nitrogen [Mass/Vol] 24 mg/dL High 10-20 [facility] Comment on above: Performed By: #### 1 91346, 224544, 177163 ####[facility] [address]ukuchzm17823 [place] [address] [facility] Director: Fahad Cast MD CBCNDon 03-11-2020 Erythrocyte distribution width (RBC) [Ratio] 14.4 % Normal 11.5-14.5 [facility] Comment on above: Performed By: #### 1 91721, 260319, 173675 #### [facility] [address] [place] [address] Yarn Winder: Fahad Cast MD Hematocrit (Bld) [Volume fraction] 33.9 % Low 36.0-46.0 [facility] Comment on above: Performed By: #### 1 64845, 190162, 598013 #### [facility] [address] [place] [address] Yarn Winder: Fahad Cast MD Hemoglobin (Bld) [Mass/Vol] 11.2 g/dL Low 12.0-16.0 [facility] Comment on above: Performed By: #### 1 26190, 675592, 510370 #### [facility] [address] [place] [address] Yarn Winder: Fahad Cast MD MCH (RBC) [Entitic mass] 29.5 pg Normal 27.0-34.0 [facility] Comment on above: Performed By: #### 1 32369, 632807, 864924 #### [facility] [address] [place] [address] Yarn Winder: Fahad Cast MD MCHC (RBC) [Mass/Vol] 33.0 g/dL Normal 32.0-37.0 [facility] Comment on above: Performed By: #### 1 55621, 708831, 990224 #### [facility] [address] [place] [address] Yarn Winder: Fahad Cast MD MCV (RBC) [Entitic vol] 89.5 fL Normal 80.0-100.0 [facility] Comment on above: Performed By: #### 1 98018, 251167, 280616 #### [facility] [address] [place] [address] Yarn Winder: Fahad Cast MD Platelet mean volume (Bld) [Entitic vol] 6.8 fL Low 7.4-10.4 [facility] Comment on above: Performed By: #### 1 68843, 264526, 166444 #### [facility] [address] [place] [address] Yarn Winder: Fahad Cast MD Platelets (Bld) [#/Vol] 232 x1000 Normal 150-450 [facility] Comment on above: Performed By: #### 1 43284, 859969, 104510 #### [facility] [address] [place] [address] Yarn Winder: Fahad Cast MD RBC (Bld) [#/Vol] 3.79 x10 Low 4.20-5.40 [facility] Comment on above: Result Comment: Note : RBC morphology is normal unless otherwise stated. Evaluation performed only if differential is requested. Performed By: #### 1 69344, 139923, 684891 #### [facility] [address] [place] [address] Yarn Winder: Fahad Cast MD WBC (Bld) [#/Vol] 5.8 10*3/uL Normal [facility] Comment on above: Performed By: #### 1 13661, 245206, 282363 #### [facility] [address] [place] [address] Yarn Winder: Fahad Cast MD WBC (Bld) [#/Vol] 5.8 x10 Normal 4.5-11.0 [facility] Comment on above: Performed By: #### 1 38655, 916367, 800523 #### [facility] [address] [place] [address] Yarn Winder: Fahad Cast MD D Dimer HSon 03-11-2020 D Dimer HS 821 ng/mL FEU High <=499 [facility] Comment on above: Result Comment: Excl usion of PE and DVT The D Dimer HS assay is reported in ng/ml Fibrinogen Equivalent Units (FEU). Per childcare teacher?s instructions for use, a value less than 500ng/ml (FEU) may help to exclude DVT and /or PE in outpatients when the assay is used with a clinical pretest probability assessment. D-Dimer used for DIC Screens Assay results should be used with other information, including the clinical context in forming a diagnosis. Performed By: #### C [id number] ####[facility] [address]ys[address]hy38916 [place] [address] Medical Director: Fahad Cast MD LDHon 03-11-2020 LDH 198 unit/L Normal 84-246 [facility] Comment on above: Performed By: #### 1 53841, 773384, 135509 #### [facility] [address] [place], [place] [address] Yarn Winder: Fahad Cast MD Progress Note-Physicianon Progress Note-Physician [...] medications. 6) DVT ppx: On Eliquis Normal [facility] Utilization Review Noteon Utilization Review Note ID Consult pending DISCHARGE WRITTEN AND PLANNED. Normal [facility] AUTO DIFFon 03-10-2020 Basophils (Bld) [#/Vol] 0.05 x1000 Normal 0.00-0.20 [facility] Comment on above: Performed By: #### 1 54564, 782531, 5756024 ####[facility] [address] [id number] Medical Director: Fahad Cast MD Basos % 0.6 % Normal [facility] Comment on above: Performed By: #### 1 95663, 230954, 7677292 ####[facility] Apgbdefc17132 [place] [address] Medical Director: Fahad Cast MD Eos Count 0.15 x1000 Normal 0.00-0.50 [facility] Comment on above: Performed By: #### 1 26428, 721135, 6624753 ####[facility] [address]qdu557[address] [place] [address] Medical Director: Fahad Cast MD Eosinophils/100 WBC (Bld) 1.8 % Normal [facility] Comment on above: Performed By: #### 1 02761, 042661, 8062237 ####[facility] Kdbwnamm56524 [place] [address] Medical Director: Fahad Cast MD Lymphocytes (Bld) [#/Vol] 1.05 x1000 Low 1.20-4.80 [facility] Comment on above: Performed By: #### 1 63441, 938104, 7828136 ####[facility] Mtwvhrfr45725 [place] [address] Medical Director: Fahad Cast MD Lymphocytes/100 WBC (Bld) 12.7 % Normal [facility] Comment on above: Performed By: #### 1 14395, 402499, 6938602 ####[facility] [address]hkhc01[address] [place] [address] Medical Director: Fahad Cast MD [place] Count 0.70 x1000 Normal 0.10-1.00 [facility] Comment on above: Performed By: #### 1 30458, 093946, 3433904 ####[facility] [address]vprmtgo65888 [place] [address] Medical Director: Fahad Cast MD Monocytes/100 WBC (Bld) 8.4 % Normal [facility] Comment on above: Performed By: #### 1 23200, 308176, 5026670 ####[facility] [address]shpzga77905 [place] [address] Medical Director: Fahad Cast MD Neutrophils (Bld) [#/Vol] 6.32 x1000 Normal 1.40-8.80 [facility] Comment on above: Performed By: #### 1 87736, 654682, 8442992 ####[facility] [address]rlsrppi769[address] [place], [place] [id number]) [phone] Director: Fahad Cast MD Neutrophils/100 WBC (Bld) 76.4 % Normal [facility] Comment on above: Performed By: #### 1 87832, 690132, 3721924 ####[facility] [address]twbbkwk26621 [place] [address] Medical Director: Fahad Cast MD COMPMETAon 03-10-2020 Albumin [Mass/Vol] 3.4 g/dL Normal 3.4-5.0 [facility] Comment on above: Performed By: #### 1 76172, 685960, 6795981 ####[facility] [address] [place] [address] Medical Director: Fahad Cast MD Albumin/Globulin [Mass ratio] 0.8 {ratio} Normal [facility] Comment on above: Performed By: #### 1 , 955586, 0723276 ####[facility] [address] [place] [address] Medical Director: Fahad Cast MD Alk Phos 71 unit/L Normal 45-117 [facility] Comment on above: Performed By: #### 1 06093, 336808, 0067889 ####[facility] [address] [place] [address] Medical Director: Fahad Cast MD Bilirubin [Mass/Vol] 0.37 mg/dL Normal 0.20-1.00 [facility] Comment on above: Result Comment: Use of this assay is not recommended for patients undergoing treatment with eltrombopag due to the potential for falsely elevated results. Performed By: #### 1 76861, 895319, 1015102 ####[facility] [address] [place] [address] Medical Director: Fahad Cast MD Calcium [Mass/Vol] 9.4 mg/dL Normal 8.5-10.5 [facility] Comment on above: Performed By: #### 1 85573, 671115, 7283209 ####[facility] [address]jhcmldo36866 [place] [address] Medical Director: Fahad Cast MD Chloride [Moles/Vol] 108 mmol/L Normal 100-109 [facility] Comment on above: Performed By: #### 1 50902, 073384, 0599273 ####[facility] [address]xweh54851 [place] [address] Medical Director: Fahad Cast MD CO2, venous 28.2 mmol/L Normal 21.0-32.0 [facility] Comment on above: Performed By: #### 1 18138, 674137, 8973173 ####[facility] [address]sb[address]oyzz82068 [place] [address] Medical Director: Fahad Cast MD Creatinine [Mass/Vol] 1.2 mg/dL High 0.6-1.0 [facility] Comment on above: Performed By: #### 1 07358, 575813, 3974118 ####[facility] [address]ubj76718 [place] [address] [facility] Director: Fahad Cast MD GFR AA 53 [facility] Comment on above: Result Comment: Afri can Greek GFR Calc Medical judgement is necessary to [...] for drug dosing. Performed By: #### 1 11474, 881492, 9978098 ####[facility] [address] [id number]) [phone] Director: Fahad Cast MD GFR/1.73 sq M predicted among non-blacks MDRD (S/P/Bld) [Vol rate/Area] 44 mL/min/1.73m? Normal [facility] Comment on above: Result Comment: [...] for drug dosing. Performed By: #### 1 68370, 200151, 8134031 ####[facility] Xpwhurrf20244 [place], [place] [address]) [phone] Director: Fahad Cast MD Globulin (S) [Mass/Vol] 4.0 g/dL Normal [facility] Comment on above: Performed By: #### 1 95466, 033882, 8891284 ####[facility] Tus[address] [place], [place] [address]) [phone] Director: Fahad Cast MD Glucose [Mass/Vol] 143 mg/dL High 72-100 [facility] Comment on above: Result Comment: Sharon puncture should occur prior to sulfasalazine administration due to the potential for falsely depressed results. Venipuncture should occur prior to sulfapyridine administration due to the potential falsely elevated results. Baseline assay values before administration of sulfasalazine and sulfapyridine therapy would not be affected. Performed By: #### 1 06269, 042048, 7242031 ####[facility] [address]vnti34508 [place] [address] Medical Director: Fahad Cast MD GOT 18 unit/L Normal 15-37 [facility] Comment on above: Result Comment: Sharon puncture should occur prior to sulfasalazine and/or sulfapyridine administration due to the potential for falsely depressed results. Baseline assay values before administration of sulfasalazine and sulfapyridine therapy would not be affected. Performed By: #### 1 94775, 428447, 0916110 ####[facility] [address]sbyd31832 [place] [address] Medical Director: Fahad Cast MD GPT 19 unit/L Normal 13-56 [facility] Comment on above: Result Comment: Sharon puncture should occur prior to sulfasalazine and/or sulfapyridine administration due to the potential for falsely depressed results. Baseline assay values before administration of sulfasalazine and sulfapyridine therapy would not be affected. Performed By: #### 1 52879, 928314, 2804177 ####[facility] [address]qo12310 [place] [address] Medical Director: Fahad Cast MD Osmolality [Osmolality] 293 mOsm/kg Normal 275-295 [facility] Comment on above: Performed By: #### 1 20108, 461125, 6741428 ####[facility] [address]trqkx16518 [place] [address] Medical Director: Fahad Cast MD Potassium [Moles/Vol] 4.0 mmol/L Normal 3.5-5.1 [facility] Comment on above: Performed By: #### 1 26090, 429691, 4134711 ####[facility] Iicbcdpp59563 [place] [address] Medical Director: Fahad Cast MD Protein [Mass/Vol] 7.4 g/dL Normal 6.0-8.5 [facility] Comment on above: Performed By: #### 1 65378, 979500, 5696606 ####[facility] Z[address]prwoq55088 [place] [address] Medical Director: Fahda Cast MD Sodium [Moles/Vol] 142 mmol/L Normal 135-145 [facility] Comment on above: Performed By: #### 1 90987, 518592, 1392050 ####[facility] Sfohitff04682 [place] [address] Medical Director: Fahad Cast MD Urea nitrogen [Mass/Vol] 32 mg/dL High 10-20 [facility] Comment on above: Performed By: #### 1 39649, 770966, 6761919 ####[facility] Yhfyghnv43294 [place] [address] Medical Director: Fahad Cast MD Urea nitrogen/Creatinine [Mass ratio] 26.7 mg/mg Normal [facility] Comment on above: Performed By: #### 1 69838, 790945, 5961507 ####[facility] Wriopsxc21384 [place] [address] Medical Director: Fahad Cast MD COVID-19 by PCR SWEDon 03-10 COVID-19 by PCR SWED Positive Abnormal [facility] Comment on above: Result Comment: CALL ER COCO NG 03/10/2020 18:23:22 EST BY SHF; RBR Performed By: #### C [id number] ####[facility] [address] [place] [id number] [facility] Director: Fahad Cast MD CRP QUANTon 03-10-2020 C-Reactive Protein, Quantitative 0.8 mg/dL High 0.0-0.3 [facility] Comment on above: Performed By: #### 1 08765, [id number], [id number], [id number] #### [facility] [address] [place] [address] Yarn Winder: Fahad Cast MD CT ABD PELVIS W [...] by: Oni Liu MD 03/10/2020 3:50 PM FABRIC WORKER Technologist: LIEN BLANCA Dictated By: ONI LIU MD Signed By: ONI LIU MD Signed Out: 03/10/20 16:50:49 Normal [facility] D Dimer HSon 03-10-2020 D Dimer HS 264 ng/mL FEU Normal <=499 [facility] Comment on above: Result Comment: Excl usion of PE and DVT The D Dimer HS assay is reported in ng/ml Fibrinogen Equivalent Units (FEU). Per childcare teacher?s instructions for use, a value less than 500ng/ml (FEU) may help to exclude DVT and /or PE in outpatients when the assay is used with a clinical pretest probability assessment. D-Dimer used for DIC Screens Assay results should be used with other information, including the clinical context in forming a diagnosis. Performed By: #### 1 [id number], [id number], [id number] #### [facility] [address] [id number] Yarn Winder: Fahad Cast MD ED Physician Reporton 2019 [...] Line Saline Flush: 3 mL, IV Push, [id number] Documented Medications Documented Eliquis 5 mg oral [...] Interp, Sinus rhythm with first-degree AV block, TX interval 256, QT/QTc/433, incomplete right bundle branch [...] /100WBC NA Lymph % 12.7 % NA [place] % 8.4 % NA Neutrophil % 76.4 % NA Eosin % 1.8 % NA Basos % 0.6 % NA Lymph Count 1.05 x1000 LOW [place] Count 0.70 x1000 NORMAL Neutrophil Count (ANC) [...] by: Monae Hernandez MD 03/10/2020 1:58 PM FABRIC WORKER Signed By: MONAE HERNANDEZ MD CT ABD [...] by: Oni Liu MD 03/10/2020 3:50 PM FABRIC WORKER Signed By: ONI LIU MD . Notes: [...] Course: improving. Impression and Plan Diagnosis Syncope ([id number] R55, Working, Medical) Plan Condition: Stable. Disposition: [...] accurately records my words and actions.. Normal [facility] ED Pre-Arrival Formon 2019 ED Pre-Arrival Form Pre-Arrival Summary Name: STR, Current Date: 03/10/2020 13:52:19 EST Gender: Date of : Age: Pre-Arrival Type: EMS ETA: 03/10/2020 14:15:00 EST Primary Care Physician: Presenting Problem: Pre-Arrival User: Neil Vázquez RN Referring Source: Location: [address] [place] [address] Emergency Department [address] [place] [address] ____ Notes: Vital Signs: Doctor Call Back: DNR Status: Miscellaneous Issues: Normal [facility] ED Progress Noteon 0 ED Progress Note report not put in by previous rn pt here for syncopal episode after diarrhea episode pt has hx of afib. pt covid+ report called to neil silva will come get pt Normal [facility] FERRITINon 03-10-2020 Ferritin [Mass/Vol] 32 ng/mL Normal 8-252 [facility] Comment on above: Performed By: #### 1 [id number], [id number], [id number] #### [facility] [address] [place] [address] Yarn Winder: Fahad Cast MD HEMOon 03-10-2020 DIFF? No Normal [facility] Comment on above: Performed By: #### 1 39928, [id number], [id number] ####[facility] Vsjltxfy37265 [place], [place] [id number]) [phone] Director: Fahad Cast MD Erythrocyte distribution width (RBC) [Ratio] 14.5 % Normal 11.5-14.5 [facility] Comment on above: Performed By: #### 1 87164, 100546, [id number] ####[facility] Avkcyxxu27931 [place], [place] [id number]) [phone] Director: Fahad Cast MD Hematocrit (Bld) [Volume fraction] 35.8 % Low 36.0-46.0 [facility] Comment on above: Performed By: #### 1 44326, [id number], [id number] ####[facility] [address]ux[address]upi76[address] [place] [address] Medical Director: Fahad Cast MD Hemoglobin (Bld) [Mass/Vol] 11.7 g/dL Low 12.0-16.0 [facility] Comment on above: Performed By: #### 1 74719, 963211, [id number] ####[facility] Yqkjngsg68202 [place], [place] [id number]) [phone] Director: Fahad Cast MD MCH (RBC) [Entitic mass] 29.4 pg Normal 27.0-34.0 [facility] Comment on above: Performed By: #### 1 63748, 744796, [id number] ####[facility] [address]mzmzii52444 [place] [address] Medical Director: Fahad Cast MD MCHC (RBC) [Mass/Vol] 32.7 g/dL Normal 32.0-37.0 [facility] Comment on above: Performed By: #### 1 52122, 802765, [id number] ####[facility] [address]gtjgtcf78251 [place] [address] Medical Director: Fahad Cast MD MCV (RBC) [Entitic vol] 89.8 fL Normal 80.0-100.0 [facility] Comment on above: Performed By: #### 1 05886, 937756, [id number] ####[facility] Ehdxgqwc67598 [place] [address] Medical Director: Fahad Cast MD Nucleated RBC (Bld) [#/Vol] 0 /100WBC Normal [facility] Comment on above: Performed By: #### 1 76530, 691052, [id number] ####[facility] Sgnhbfse65814 [place] [address] Medical Director: Fahad Cast MD Platelet mean volume (Bld) [Entitic vol] 6.7 fL Low 7.4-10.4 [facility] Comment on above: Performed By: #### 1 98652, 295511, [id number] ####[facility] Wftignrn26018 [place] [address] Medical Director: Fahad Cast MD Platelets (Bld) [#/Vol] 252 x1000 Normal 150-450 [facility] Comment on above: Performed By: #### 1 99752, 359480, [id number] ####[facility] [address]upwghqt90678 [place] [address] Medical Director: Fahad Cast MD RBC (Bld) [#/Vol] 3.99 x10 Low 4.20-5.40 [facility] Comment on above: Result Comment: Note : RBC morphology is normal unless otherwise stated. Evaluation performed only if differential is requested. Performed By: #### 1 50487, 752841, [id number] ####[facility] Xumoyjnl48838 [place] [address] Medical Director: Fahad Cast MD WBC (Bld) [#/Vol] 8.3 10*3/uL Normal [facility] Comment on above: Performed By: #### 1 10277, 968569, [id number] ####[facility] [address]zaodwqv41943 [place] [address] Medical Director: Fahad Cast MD WBC (Bld) [#/Vol] 8.3 x10 Normal 4.5-11.0 [facility] Comment on above: Performed By: #### 1 50615, 320583, [id number] ####[facility] Ekdsxepr65294 [place] [address] Medical Director: Fahad Cast MD History and [...] ppx: On Eliquis OT MESA on Normal [facility] LACTATEon 03-10-2020 Lactate [Moles/Vol] 1.8 mmol/L Normal 0.4-2.0 [facility] Comment on above: Performed By: #### 1 57515 #### [facility] [address] [place] [address] Yarn Winder: Fahad Cast MD LIPon 03-10-2020 Lipase [Catalytic activity/Vol] 135 unit/L Normal 73-393 [facility] Comment on above: Performed By: #### 1 93731, 198773, 212060 ####[facility] [address]gbubocx53895 [place] [address] Medical Director: Fahad Cast MD MG LEVELon 03-10-2020 Magnesium [Mass/Vol] 1.9 mg/dL Normal 1.6-2.6 [facility] Comment on above: Performed By: #### 1 93547, 217816, 371070 ####[facility] [address]kblmsyl73835 [place] [address] Medical Director: Fahad Cast MD PCTon 03-10-2020 Procalcitonin <0.05 Normal [facility] Comment on above: Result Comment: [...] or septic shock. Performed By: #### 1 27604, [id number], [id number], [id number] #### [facility] [address] [place] [address] Yarn Winder: Fahad Cast MD TROPONINon 03-10-2020 Troponin I.cardiac [Mass/Vol] ng/mL Normal 0.000-0.099 [facility] Comment on above: Result Comment: This test is a quantitative determination of cardiac troponin I. High levels of serum biotin may interfere with this test. Performed By: #### 1 62127, 792666, 219585 ####[facility] Xhrbplfa08481 [place] [address] Medical Director: Fahad Cast MD XR CHEST [...] lung pleural bone abnormalities. Electronically signed by: Monea Hernandez MD 03/10/2020 1:58 PM FABRIC WORKER Technologist: THANG JAMES Dictated By: MONAE HERNANDEZ MD Signed By: MONAE HERNANDEZ MD Signed Out: 03/10/20 14:58:26 Normal [facility] Vital Signs Date Time Vital Sign Value Performing Clinician Facility 02-01-2024 11:13-0400 Body height 165.1 cm [facility] 02-01-2024 11:13-0400 Body mass index (BMI) [Ratio] 28.3 kg/m2 [facility] 02-01-2024 11:13-0400 Body weight 77.11 kg [facility] 02-01-2024 11:13-0400 Diastolic blood pressure 72 mm[Hg] [facility] 02-01-2024 11:13-0400 Heart rate 60 /min [facility] 02-01-2024 11:13-0400 Systolic blood pressure 134 mm[Hg] [facility] 11-26-2023 14:08-0400 Body height 165.1 cm Miko Ohara MD Work Phone: [facility] 11-26-2023 14:08-0400 Body mass index (BMI) [Ratio] 27.96 kg/m2 Miko Ohara MD Work Phone: [facility] 11-26-2023 14:08-0400 Body temperature 97 [degF] Miko Ohara MD Work Phone: [facility] 11-26-2023 14:08-0400 Body weight 76.2 kg Miko Ohara MD Work Phone: [facility] 10-28-2023 08:41-0400 Body height 165.1 cm [facility] 10-28-2023 08:41-0400 Body mass index (BMI) [Ratio] 27.9 kg/m2 [facility] 10-28-2023 08:41-0400 Body weight 76.2 kg [facility] 10-28-2023 08:41-0400 Diastolic blood pressure 68 mm[Hg] [facility] 10-28-2023 08:41-0400 Heart rate 58 /min [facility] 10-28-2023 08:41-0400 Systolic blood pressure 106 mm[Hg] [facility] 08-20-2023 14:38-0400 Body height 165.1 cm Divine [employer] Work Phone: [facility] [employer] [facility] 08-20-2023 14:38-0400 Body mass index (BMI) [Ratio] 27.96 kg/m2 Divine [employer] Work Phone: [facility] [employer] [facility] 08-20-2023 14:38-0400 Body weight 76.2 kg Divine [employer] Work Phone: [facility] [employer] [facility] 07-23-2023 14:45-0400 Body height 165.1 cm Divine [employer] Work Phone: [employer] 07-23-2023 14:45-0400 Body mass index (BMI) [Ratio] 27.96 kg/m2 Divineeli [employer] Work Phone: [employer] [facility] 07-23-2023 14:45-0400 Body weight 76.2 kg Divine [employer] Work Phone: [employer] [facility] 2023 15:34-0500 Body temperature 97.9 [degF] Miko Ohara MD Work Phone: [employer] [facility] 2023 15:34-0500 Diastolic blood pressure 53 mm[Hg] Miko Ohara MD Work Phone: [employer] [facility] 2023 15:34-0500 Heart rate 80 /min Miko Ohara MD Work Phone: [employer] [facility] 2023 15:34-0500 Respiratory rate 16 /min Miko Ohara MD Work Phone: [facility] 2023 15:34-0500 SaO2% (BldA) [Mass fraction] 98 % Miko Ohara MD Work Phone: [facility] 2023 15:34-0500 Systolic blood pressure 110 mm[Hg] Miko Ohara MD Work Phone: [facility] 07-07-2023 16:39-0500 Body height 165.1 cm Miko Ohara MD Work Phone: [facility] 07-07-2023 16:39-0500 Body mass index (BMI) [Ratio] 28.02 kg/m2 Miko Ohara MD Work Phone: [facility] 07-07-2023 16:39-0500 Body weight 76.39 kg Miko Ohara MD Work Phone: [facility] 06-18-2023 14:31-0500 Body height 165.1 cm Miko Ohara MD Work Phone: [facility] 06-18-2023 14:31-0500 Body mass index (BMI) [Ratio] 28.12 kg/m2 Miko Ohara MD Work Phone: [facility] 06-18-2023 14:31-0500 Body weight 76.66 kg Miko Ohara MD Work Phone: [facility] 06-02-2023 11:19-0500 Body height 165.1 cm Donna Diaz MD Work Phone: [facility] [employer] [facility] 06-02-2023 11:19-0500 Body mass index (BMI) [Ratio] 28.12 kg/m2 Donna Diaz MD Work Phone: [facility] [employer] [facility] 06-02-2023 11:19-0500 Body weight 76.66 kg Donna Diaz MD Work Phone: [facility] [employer] [facility] 06-02-2023 11:19-0500 Diastolic blood pressure 68 mm[Hg] Donna Diaz MD Work Phone: [employer] 06-02-2023 11:19-0500 Heart rate 62 /min Donna Diaz MD Work Phone: [employer] 06-02-2023 11:19-0500 SaO2% (BldA) [Mass fraction] 99 % Donna Diaz MD Work Phone: [employer] 06-02-2023 11:19-0500 Systolic blood pressure 106 mm[Hg] Donna Diaz MD Work Phone: [employer] 05-14-2023 09:38-0500 Body height 165.1 cm Miko Ohara MD Work Phone: [employer] 05-14-2023 09:38-0500 Body mass index (BMI) [Ratio] 29.12 kg/m2 Miko Ohara MD Work Phone: [employer] 05-14-2023 09:38-0500 Body temperature 98.2 [degF] Miko Ohara MD Work Phone: [employer] 05-14-2023 09:38-0500 Body weight 79.38 kg Miko Ohara MD Work Phone: [employer] 10-30-2022 14:45-0400 Body height 165.1 cm Elliot Starks Other [employer] Other 10-30-2022 14:45-0400 Body mass index (BMI) [Ratio] 28.4 kg/m2 Elliot Starks Other [employer] Other 10-30-2022 14:45-0400 Body weight 77.43 kg Elliot Starks Other [employer] Other 10-30-2022 14:45-0400 Diastolic blood pressure 66 mm[Hg] Elliot Starks Other [employer] Other 10-30-2022 14:45-0400 Systolic blood pressure 123 mm[Hg] Elliot Starks Other [employer] Other 06-04-2022 11:30-0500 Body height 165.1 cm Elliot Starks Other [employer] Other 06-04-2022 11:30-0500 Body mass index (BMI) [Ratio] 28.29 kg/m2 Elliot Starks Other [employer] Other 06-04-2022 11:30-0500 Body weight 77.11 kg Elliot Starks Other [employer] Other 06-04-2022 11:30-0500 Diastolic blood pressure 64 mm[Hg] Elliot Starks Other [employer] Other 06-04-2022 11:30-0500 SaO2% (BldA) [Mass fraction] 99 % Elliot Starks Other [employer] Other 06-04-2022 11:30-0500 Systolic blood pressure 104 mm[Hg] Elliot Starks Other [employer] Other Encounters Encounter Date Encounter Type Care Provider Facility Start: 06-01-2024 ambulatory Alfreda Miller Facility:[facility] Start: 02-01-2024 End: 02-01-2024 ambulatory [facility] Work Phone: Start: 02-01-2024 End: 02-01-2024 Patient encounter procedure [facility] Work Phone: Start: 12-14-2023 End: 12-14-2023 ambulatory Daisy Liz MD Facility:[facility] Start: 11-26-2023 End: 11-26-2023 Office outpatient visit 15 minutes Miko Ohara MD Work Phone: [facility] Comment on above: Hx of total hip arth roplasty, right (Primary Dx) Start: 11-26-2023 End: 11-26-2023 Subsequent hospital visit by physician Miko Ohara MD Work Phone: [facility] Start: 10-28-2023 End: 10-28-2023 ambulatory [facility] Work Phone: Start: 10-28-2023 End: 10-28-2023 Patient encounter procedure [facility] Work Phone: Start: 09-30-2023 End: 10-01-2023 ambulatory ANDREW CHOI [facility] Start: 09-17-2023 Telephone encounter Matt Duron Hematology/Oncology Comment on above: Yearly Exam With Shane rodriguez Start: 08-20-2023 End: 08-20-2023 Subsequent hospital visit by physician Divine Mahmood Work Phone: [facility] Start: 08-20-[address] [facility] Start: 08-20-2023 End: 08-20-2023 Postop follow up visit related to original px Divine Mahmood Work Phone: [facility] Comment on above: Right hip pain (Prim hayden Dx) Start: 08-20-[address] [facility] Start: 08-12-2023 End: 08-12-2023 ambulatory MIKO Malini VASQUEZ [facility] Start: 07-23-2023 End: 07-23-2023 Postop follow up visit related to original px Divine Mahmood Work Phone: [facility] Comment on above: Tear of gluteus mini mus tendon, right, initial encounter (Primary Dx) Start: 07-23-2023 End: 07-23-2023 Subsequent hospital visit by physician Divine Mahmood Work Phone: [facility] Start: 07-23-2023 ambulatory ELLIOT STARKS [facility] Start: 07-17-2023 Refill Mike galloway MD Work Phone: [facility] Comment on above: Med Refill Start: 07-15-2023 End: 07-16-2023 Emergency department patient visit EILEEN BLANTON [facility] Start: 07-15-2023 Telephone encounter [facility] Start: 07-15-2023 End: 07-15-2023 Emergency department patient visit ELLIOT Nayak [facility] Start: 07-07-2023 End: 2023 Encounter for other preprocedural examination [facility] Start: 07-07-2023 End: 2023 Evaluation and management of inpatient Miko Ohara MD Work Phone: [facility] Comment on above: Status post revision of total hip Start: 07-07-2023 End: 2023 Patient encounter status Miko Ohara MD Work Phone: [facility] Start: 07-01-2023 Patient encounter status [facility] Start: 06-25-2023 ambulatory [facility] Start: 06-19-2023 Telephone encounter Jacqueline Sparrow RN [facility] Comment on above: Pre op clearance Start: 06-18-2023 End: 06-18-2023 Office outpatient visit 40 minutes Miko Ohara MD Work Phone: [facility] Comment on above: Right hip pain (Prim hayden Dx) Start: 06-18-2023 ambulatory [facility] Start: 06-08-2023 End: 06-08-2023 ambulatory Daisy Liz MD Facility:[facility] Start: 06-02-2023 End: 06-02-2023 Office outpatient visit 25 minutes Donna Diaz MD Work Phone: [facility] Comment on above: Paroxysmal atrial fi brillation (CMS-HCC) (Primary Dx); Primary hypertension; Chronic coronary artery disease Start: 06-02-2023 End: 06-02-2023 ambulatory DONNA DIAZ [facility] Start: 06-01-2023 ambulatory [facility] Start: 05-28-2023 ambulatory PAULA [facility] Start: 05-27-2023 End: 05-28-2023 ambulatory Alfreda Miller Facility:[facility] Start: 05-25-2023 End: 05-25-2023 ambulatory Daisy Liz MD Facility:[facility] Start: 05-18-2023 End: 05-18-2023 ambulatory Daisy Liz MD Facility:[facility] Start: 05-14-2023 ambulatory [facility] Start: 05-14-2023 End: 05-14-2023 Office outpatient new 30 minutes Miko Ohara MD Work Phone: [facility] Comment on above: Pain in prosthetic j oint, initial encounter (Primary Dx); Primary osteoarthritis of right hip Start: 05-14-2023 End: 05-14-2023 Subsequent hospital visit by physician Miko Ohara MD Work Phone: [facility] Start: 05-14-2023 ambulatory [facility] Start: 03-30-2023 (Televisit) Televisit Elliot Dela Cruz [facility] Start: 03-30-2023 End: 03-30-2023 ambulatory Elliot Starks Other [employer] Other Start: 02-11-2023 End: 02-12-2023 ambulatory Alfreda Miller Facility:[facility] Start: 02-11-2023 End: 02-11-2023 Patient encounter procedure Alfreda Miller [facility] Start: 12-29-2022 Preoperative state Donna franks MD Work Phone: [facility] Start: 11-17-2022 End: 11-17-2022 ambulatory Elliot Starks Other [employer] Other Start: 11-17-2022 Telephone encounter Elliot Starks [facility] Start: 11-06-2022 ambulatory Alfreda Miller Facility:[facility] Start: 10-30-2022 End: 10-30-2022 ambulatory Elliot Starks Other [employer] Other Start: 10-30-2022 Office outpatient vi sit 15 minutes Elliot Starks [facility] Start: 10-29-2022 End: 10-29-2022 ambulatory Elliot Starks Other [employer] Other Start: 10-29-2022 Telephone encounter Elliot Starks [facility] Start: 10-27-2022 Nursing evaluation o f patient and report Elliot Starks [facility] Start: 10-27-2022 End: 10-27-2022 ambulatory Elliot Starks [employer] Other Start: 10-27-2022 End: 10-27-2022 Departed Referred MD Elliot Starks Work Phone: [facility] Work Phone: Start: 09-11-2022 Telephone encounter Matt Duron Hematology/Oncology Comment on above: Orders Start: 08-11-2022 End: 08-11-2022 ambulatory Elliot Starks Other [employer] Other Start: 08-11-2022 Nursing evaluation o f patient and report Elliot Starks [facility] Start: 07-17-2022 (Televisit) Televisit Elliot Dela Cruz [facility] Start: 07-17-2022 End: 07-17-2022 ambulatory Elliot Starks Other [employer] Other Start: 06-23-2022 End: 06-23-2022 ambulatory Elliot Stakrs Other [employer] Other Start: 06-23-2022 Nursing evaluation o f patient and report Elliot Starks [facility] Start: 06-09-2022 End: 06-09-[address] ELLIOT STARKS Facility:[facility] Start: 06-06-2022 End: 06-06-2022 ambulatory Elliot Starks Other [employer] Other Start: 06-06-2022 Telephone encounter Elliot Starks [facility] Start: 06-04-2022 End: 06-04-2022 ambulatory Elliot Starks Other [employer] Other Start: 06-04-2022 Office outpatient vi sit 25 minutes Elliot Starks [facility] Start: 05-21-2022 End: 05-21-2022 ambulatory Elliot Starks Other [employer] Other Start: 05-21-2022 Telephone encounter Elliot Starks [facility] Start: 04-26-2022 End: 04-26-[address] ELLIOT STARKS Facility: Start: 04-14-2022 End: 04-14-[address] ELLIOT STARKS Facility: Start: 12-18-2021 End: 12-18-2021 ambulatory Melchor Goff [place] Facility:[facility] Start: 10-03-2021 Telephone encounter Andrew black MD Work Phone: Hematology/Oncology Comment on above: Lab Orders Start: 09-26-2021 Telephone encounter Mikaela jimenez RN Work Phone: Hematology/Oncology Comment on above: Radiology Mammogram Start: 12-02-2016 End: 12-03-2016 Ambulatory DEFAULT PHYSICIAN Facility:[facility] Procedures Date Procedure Procedure Detail Performing Clinician Start: 2023 Basic metabolic pane l calcium total Chance Mahoney MD Work Phone: Start: 2023 Complete blood count with white cell differential, automated Paula Fitzpatrick MATE RELIEF-FORESTRY TECHNICIAN Work Phone: Start: 07-07-2023 Cultyp nuc acid amp prb cult/isolate ea orgnism Chance Mahoney MD Work Phone: Start: 07-07-2023 Radiologic examinati on pelvis 1/2 views Paula Fitzpatrick MATE RELIEF-FORESTRY TECHNICIAN Work Phone: Start: 07-07-2023 Cell count miscellan [...] Author Start: 07-14-2024 Tobacco Screening Tobacco Screening [facility] Start: 07-14-2024 End: 07-14-2024 Patient encounter procedure 07/14/2024 11:20 AM EDT Office Visit [facility] [address] [place] [id number] Miko Ohara MD [address] [place] [id number] [facility] Start: 07-07-2024 Potassium [Moles/vol ume] in Serum or Plasma POTASSIUM [facility] Start: 06-02-2024 Adult BMI Screening Adult BMI Screen ing [facility] Start: 06-02-2024 Tobacco Screening Tobacco Screening [facility] Start: 01-03-2024 Influenza vaccination [facility] Start: 11-26-2023 End: 11-26-2023 Patient encounter procedure 11/26/2023 2:00 PM EDT Office Visit [facility] [address] [place] [id number] Miko Ohara MD [address] [place] [id number] [facility] Start: 10-09-2023 DIABETES SCREEN DIABETES SCREEN [facility] Start: 10-09-2023 Diabetes Screening Diabetes Screenin g [facility] Start: 08-20-2023 End: 08-20-2023 Patient encounter procedure 08/20/2023 2:30 PM EDT Office Visit [facility] [address] [place] [id number] Divine Mahmood [address] [place] [address] [facility] Start: 08-12-2023 End: 08-12-2023 Patient encounter procedure 08/12/2023 8:00 AM EDT Office Visit [facility] [address] [phone] Miko Vasquez, MATE RELIEF-FORESTRY TECHNICIAN [address] [place] [address] [facility] Start: 07-23-2023 End: 07-23-2023 Patient encounter procedure 07/23/2023 2:30 PM EDT Office Visit [address] [address] Divine Mahmood [address] [place] [address] [facility] Start: 07-07-2023 End: 07-07-2023 Evaluation and management of inpatient [facility] Comment on above: Tear of rotator [...] initial encounter 07/07/2023 12:25 PM EST [facility] Start: 06-25-2023 End: 06-25-2023 Admission to establishment 06/25/2023 10:00 AM EST Pre-Operative Nurse Assessment [facility] Pre Admission [address] [place] [address] Pre-op testing (Primary Dx); Essential (primary) hypertension; Abnormal finding of blood chemistry, unspecified; Abnormal coagulation profile [facility] Pre Admission Comment on above: Pre-op testing (Prim hayden Dx); Essential (primary) hypertension; Abnormal finding of blood chemistry, unspecified; Abnormal coagulation profile Start: 05-28-2023 End: 05-28-2023 Patient encounter procedure 05/28/2023 11:00 AM EST Office Visit [facility] [address] [facility] [place] [address] Antelmo Richey DO [address] [place] [address] [facility] Start: 05-14-2023 End: 05-14-2024 MR Hip - right WO contrast MRI HIP RIGHT WITHOUT CONTRAST Imaging Routine Pain in prosthetic joint, initial encounter Expected: 05/14/2023, Expires: 05/14/2024 [facility] Comment on above: Expected: 05/14/2023 , Expires: 05/14/2024 Start: 05-04-2023 Advance Directive Discussion Advance Directive Discussion [facility] Start: 05-04-2023 Behavioral Health Screening Behavioral Health Screening [facility] Start: 01-02-2023 Covid-19 Vaccine ( season) Covid-19 Vaccine ( season) [facility] Start: 01-02-2023 COVID-19 VACCINE ( season) COVID-19 VACCINE () [facility] Start: 01-02-2023 Influenza vaccination INFLUENZA (Sea son Ended) [facility] Start: 10-27-2022 Bacteria identified in Urine by Culture [facility] Start: 05-04-2022 ADVANCE DIRECTIVE DISCUSSION ADVANCE DIRECTIVE DISCUSSION [facility] Start: 05-04-2022 DEPRESSION ASSESSMENT DEPRESSION ASS ESSMENT [facility] Start: 04-08-2022 Screening for malign ant neoplasm of colon Colonoscopy [facility] Start: 01-02-2022 Influenza vaccination INFLUENZA (Sea son Ended) [facility] Start: 10-07-2021 End: 12-07-2021 Cancer Ag 27-29 [Units/volume] in Serum or Plasma CA 27.29 BLOOD Lab Routine Malignant neoplasm of upper-outer quadrant of left breast in female, estrogen receptor positive (HCC) Expected: 10/07/2021, Expires: 12/07/2021 [facility] Work Phone: Comment on above: Expected: 10/07/2021 , Expires: 12/07/2021 Start: 10-07-2021 End: 12-07-2021 CBC W Auto Differential panel - Blood CBC + DIFF Lab Routine Malignant neoplasm of upper-outer quadrant of left breast in female, estrogen receptor positive (HCC) Expected: 10/07/2021, Expires: 12/07/2021 [facility] Work Phone: Comment on above: Expected: 10/07/2021 , Expires: 12/07/2021 Start: 10-07-2021 End: 12-07-2021 Comprehensive metabolic 2000 panel - Serum or Plasma COMP METABOLIC PANEL Lab Routine Malignant neoplasm of upper-outer quadrant of left breast in female, estrogen receptor positive (HCC) Expected: 10/07/2021, Expires: 12/07/2021 [facility] Work Phone: Comment on above: Expected: 10/07/2021 , Expires: 12/07/2021 Start: 09-25-2021 Mammography MAMMOGRAM [facility] Start: 05-04-2021 ADVANCE DIRECTIVE DISCUSSION ADVANCE DIRECTIVE DISCUSSION [facility] Start: 11-17-2020 COVID-19 VACCINE (3 - Booster for Pfizer series) COVID-19 VACCINE (3 - Booster for Pfizer series) [facility] Start: 10-06-2020 Adult depression screening assessment DEPRESSION SCREENING [facility] Start: 08-15-2020 COVID-19 VACCINE (3 - Booster for Pfizer series) COVID-19 VACCINE (3 - Booster for Pfizer series) [facility] Start: 01-05-2019 Pneumococcal Vaccine : 65+ (2 of 2 - PCV) Pneumococcal Vaccine: 65+ (2 of 2 - PCV) [facility] Start: 01-05-2019 PNEUMOCOCCAL: 65+ (2 - PCV) PNEUMOCOCCAL: 65+ (2 - PCV) [facility] Start: 07-07-2012 BONE DENSITY BONE DENSITY [facility] Start: 07-07-2012 Fall Risk Screening Fall Risk Screen ing [facility] Start: 07-07-2012 Screening for osteoporosis Bone Density Screening [facility] Start: 2007 RSV Vaccine (1 - 1-d ose 60+ series) RSV Vaccine (1 - 1-dose 60+ series) [facility] Start: 07-07-1997 Administration of varicella zoster vaccine Zoster (Shingles) Vaccine (1 of 2) [facility] Start: 07-07-1997 SHINGRIX VACCINE (1 of 2) SHINGRIX VACCINE (1 of 2) [facility] Start: 07-07-1997 Zoster vaccine hzv l david for subcutaneous use ZOSTER (SHINGLES) VACCINE (1 of 2) [facility] Start: 07-07-1992 COLOGUARD (FIT-DNA) COLOGUARD (FIT-D NA) [facility] Start: 07-07-1992 Colonoscopy COLONOSCOPY [facility] Start: 07-07-1992 COLORECTAL CANCER SCREENING COLORECTAL CANCER SCREENING [facility] Start: 07-07-[address] COLONOGRAPHY [facility] Start: 07-07-1992 FECAL OCCULT BLOOD FECAL OCCULT BLOO D [facility] Start: 07-07-1992 LIPID SCREEN LIPID SCREEN [facility] Start: 07-07-1992 Screening for malign ant neoplasm of colon COLORECTAL CANCER SCREENING DISCUSSION [facility] Start: 07-07-1992 SIGMOIDOSCOPY SIGMOIDOSCOPY [facility] Start: 1987 Lipid panel LIPID SCREENING [facility] Start: 1987 Screening for malign ant neoplasm of breast MAMMOGRAM SCREENING DISCUSSION [facility] Start: 07-07-1968 Screening for malign ant neoplasm of cervix CERVICAL CANCER SCREENING DISCUSSION [facility] Start: 07-07-1966 DTaP,Tdap and Td Vaccines (1 - Tdap) DTaP,Tdap and Td Vaccines (1 - Tdap) [facility] Start: 07-07-1966 Third diphtheria, tetanus and acellular pertussis (DTaP) vaccination TDAP (ADULT) [facility] Start: 07-07-1966 Urine microalbumin profile [facility] Start: 07-07-1965 Adult BMI Follow Up Plan Adult BMI F ollow Up Plan [facility] Start: 07-07-1965 HEPATITIS C SCREENING HEPATITIS C SC REENING [facility] Start: 1959 Depression Screening Depression Scre ening [facility] Start: 07-07-1953 PNEUMOCOCCAL: 65+ (1 - PCV) PNEUMOCOCCAL: 65+ (1 - PCV) [facility] Start: 1945 Hepatitis C screening HEPATITI S C VIRUS SCREENING [facility] Start: 1945 Medicare Annual Well ness Visit Medicare Annual Wellness Visit [facility] Start: 1945 Potassium [Moles/vol ume] in Serum or Plasma POTASSIUM [facility] Start: 1945 Screening for osteoporosis DEXA SCAN DISCUSSION [facility] Start: 1945 Tetanus vaccination TETANUS [facility] ANAEROBE CULTURE [facility] Comment on above: Release Upon Orderin g for 1 Occurrences starting 07/07/2023 Bacterial culture an d sensitivity CULTURE WOUND Microbiology Routine 07/07/2023 2:27 PM EST [facility] BODY FLUID CELL COUNT BODY FLUID CELL COUNT Fluids Routine Tear of rotator cuff of right hip, initial encounter 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, initial encounter Release Upon Ordering for 1 Occurrences starting 07/07/2023 [facility] Comment on above: Release Upon Orderin g for 1 Occurrences starting 07/07/2023 End: 10-16-2024 DBT Breast - bilateral screening SHANE SCREENING W YAW Radiology Routine Encounter for screening mammogram for malignant neoplasm of breast 1 Occurrences starting 09/17/2023 until 10/16/2024 [facility] Work Phone: Comment on above: 1 Occurrences starti ng 09/17/2023 until 10/16/2024 End: 07-07-2023 Fungus identified in Unspecified specimen by Culture [facility] Comment on above: Release Upon Orderin g for 1 Occurrences starting 07/07/2023 One Time for 1 Occur rences starting 07/07/2023 until 07/07/2023 End: 10-26-2022 SHANE SCREENING W YAW SHANE SCREENING W YAW Radiology Routine Encounter for screening mammogram for malignant neoplasm of breast 1 Occurrences starting 09/26/2021 until 10/26/2022 [facility] Work Phone: Comment on above: 1 Occurrences starti ng 09/26/2021 until 10/26/2022 End: 10-11-2023 SHANE SCREENING W YAW SHANE SCREENING W YAW Radiology Routine Encounter for screening mammogram for malignant neoplasm of breast 1 Occurrences starting 09/11/2022 until 10/11/2023 [facility] Work Phone: Comment on above: 1 Occurrences starti ng 09/11/2022 until 10/11/2023 End: 07-07-2023 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 [employer] (acquired by [employer]) [facility] Comment on above: Release Upon Orderin g for 1 Occurrences starting 07/07/2023 One Time for 1 Occur rences starting 07/07/2023 until 07/07/2023 XR Pelvis and Hip - right Views XR HIP WITH PELVIS RIGHT Imaging Routine Primary osteoarthritis of right hip 05/14/2023 9:20 AM [facility] [employer] (acquired by [employer]) System Work Phone: XR Pelvis and Hip - right Views XR HIP WITH PELVIS RIGHT Imaging Routine Tear of gluteus minimus tendon, right, initial encounter 07/23/2023 2:22 PM EDT Room Choice XR Pelvis and Hip - right Views XR HIP WITH PELVIS RIGHT Imaging Routine Right hip pain 08/20/2023 3:17 PM EDT Room Choice XR Pelvis and Hip - right Views XR HIP WITH PELVIS RIGHT Imaging Routine Hx of total hip arthroplasty, right 11/26/2023 1:53 PM EDT [employer] (acquired by [employer]) [facility] Immunizations Immunization Date Immunization Notes Care Provider [facility] 02-10-2023 influenza virus vaccine, unspecified formulation Alfreda Miller [facility] 02-01-2022 influenza virus vaccine, unspecified formulation Alfreda Miller [facility] 08-13-2021 SARS-CoV-2 mRNA (bxulgwiemqg-odet-wntjl se) vaccine Alfreda Miller [facility] 01-29-2021 SARS-CoV-2 (COVID-19 ) mRNA BNT-162b2 vax Alfreda Lue [facility] Comment on above: Result Comment: 2022: [id number] 06-20-2020 COVID-19 vaccine, ag e 12+ yr (PFIZER-BIONTECH - PURPLE TOP) Mikaela Thompson RN Work Phone: [facility] 05-28-2020 SARS-CoV-2 (COVID-19 ) mRNA BNT-162b2 vax Alfreda Lue [facility] 05-18-2020 COVID-19 vaccine, ag e 12+ yr (PFIZER-BIONTECH - PURPLE TOP) Mikaela Thompson RN Work Phone: [facility] 01-27-2020 influenza virus vaccine, split virus (incl. purified surface antigen) Elliot Starks Other [employer] Other 01-27-2020 influenza virus vaccine, unspecified formulation Alfreda Lue [facility] 01-20-2019 influenza virus vaccine, unspecified formulation Alfreda Lue [facility] 01-20-2019 influenza, high dose seasonal, preservative-free Mikaela Thompson RN Work Phone: [facility] 03-09-2018 influenza virus vaccine, unspecified formulation Alfreda Lue [facility] 01-05-2018 influenza virus vaccine, split virus (incl. purified surface antigen) Elliot Starks Other [employer] Other 01-05-2018 influenza virus vaccine, unspecified formulation Alfreda Lue [facility] 01-05-2018 influenza, high dose seasonal, preservative-free Mikaela Thompson RN Work Phone: [facility] 01-05-2018 pneumococcal polysaccharide vaccine, 23 valent Mikaela Thompson RN Work Phone: [facility] 02-25-2017 influenza virus vaccine, unspecified formulation Alfreda Lue [facility] 02-17-2017 pneumococcal polysaccharide vaccine, 23 valent Alfreda Lue [facility] 02-05-2017 influenza virus vaccine, split virus (incl. purified surface antigen) Elliot Starks Other [employer] Other 02-05-2017 influenza virus vaccine, unspecified formulation Alfreda Lue [facility] 02-05-2017 pneumococcal conjuga te vaccine, 13 valent Alfreda Lue [facility] 02-01-2002 pneumococcal polysaccharide vaccine, 23 valent Elliot Starks Other [facility] Payers Date Payer Category Payer Private Health Insurance 2022 Self-pay 2014 Medicare AETNA MEDICARE A ETNA MEDICARE PPO [id number] 2014-Present [phone] [address] [place] [address] PPO [id number] 2014 Medicare [id number] 1959 Medicare [id number] 1945 Unknown [id number] 2.16.840.1.042265.3.579.2.5 93 -1948 Unknown [id number] 2.16.840.1.963608.3.579.2.5 93 194 Unknown [id number] 2.16.840.1.709662.3.579.2.5 93 194 Unknown [id number] 2.16.840.1.702941.3.579.2.7 18 1947 Unknown [id number] 2.16.840.1.607361.3.579.2.7 27 1947 Unknown [id number] 2.16.840.1.377374.3.579.2.7 27 1947 Unknown [id number] 2.16.840.1.619086.3.579.2.7 27 1947 Unknown [id number] 2.16.840.1.023846.3.579.2.1 286 1947 Unknown [id number] 2.16.840.1.251868.3.579.2.1 286 1947 Unknown [id number] 2.16.840.1.558672.3.579.2.1 286 1947 Unknown [id number] 2.16.840.1.926106.3.579.2.1 286 1947 Unknown [id number] 2.16.840.1.507881.3.579.2.1 286 1947 Unknown [id number] 2.16.840.1.718516.3.579.2.9 83 1947 Unknown [id number] 2.16.840.1.463206.3.579.2.9 83 1947 Unknown [id number] 2.16.840.1.410114.3.579.2.9 83 1947 Unknown [id number] 2.16.840.1.201229.3.579.2.9 83 -1948 Unknown [id number] 2.16.840.1.943303.3.579.2.9 83 -194 Unknown [id number] 2.16.840.1.489877.3.579.2.9 83 -194 Unknown [id number] 2.16.840.1.183181.3.579.2.9 83 194 Unknown [id number] 2.16.840.1.802438.3.579.2.9 83 -194 Unknown [id number] 2.16.840.1.102906.3.579.2.9 83 1947 Unknown [id number] 2.16.840.1.202451.3.579.2.9 83 194 Unknown [id number] 2.16.840.1.207933.3.579.2.9 83 -194 Unknown [id number] 2.16.840.1.069656.3.579.2.9 83 - Unknown [id number] 2.16.840.1.628054.3.579.2.1 96 - Unknown [id number] 2.16.840.1.699906.3.579.2.1 96 1947 Unknown [id number] 2.16.840.1.142743.3.579.2.1 96 1947 Unknown [id number] 2.16.840.1.341359.3.579.2.1 96 Private Health Insurance Aetna [facility] P[facility] M [id number] Unknown Unknown [id number] 2.16.840.1.451137.3.579.2.5 31 Social History Date Type Detail Facility Start: 12-03-2015 End: 12-06-2015 Tobacco smoking status [facility] Ex-smoker [facility] End: 12-05-1990 History of tobacco use Current smoker [facility] Start: 12-03-2015 End: 07-07-2023 Cigarettes smoked current (pack per day) - Reported 1 [facility] Start: 12-03-2015 End: 05-14-2023 Tobacco use and exposure Smokeless tobacco non-user [facility] Start: 10-08-2020 End: 11-26-2023 Alcohol intake Current drinker of alcohol (finding) [facility] Start: 1945 Sex Assigned At Not on file [facility] Start: 05-14-2023 End: 07-07-2023 Sex Assigned At [facility] End: 12-05-1990 History of tobacco use Cigarette Smoker [facility] Start: 1945 Sex Assigned At Female F [facility] Tobacco smoking status Never [facility] Start: 05-14-2023 Tobacco smoking stat us NHIS Never smoked tobacco [facility] [employer] [facility] Start: 03-31-2022 Tobacco Comment quit in 1989 [facility] [employer] [facility] Start: 03-19-2017 End: 06-19-2023 Alcohol Comment social [facility] Start: 05-09-2018 Gender identity Identifies as female gender (finding) [facility] [employer], [employer], [employer], or water company threatened to shut off services in your home in past 12Mo No [employer] (acquired by [employer]) System (I/We) worried wheth er (my/our) food would run out before (I/we) got money to buy more. Never true [employer] (acquired by [employer]) System Medical Equipment Procedure Code Equipment Code Equipment Origin al Text Equipment Identifier Dates Anchors, 5.5 Non Punching - [id number] Start: 07-07-2023 Anchors, 5.5 Non Punching - [id number] Start: 07-07-2023 Functional Status Date Assessment Result Facility 02-11-2023 Functional Status N/A [facility] Clinical Notes 09-26-2021 to 11-26-2023 Hal Fischer [...] anticipated. Patient has been doing PT at [facility] and this helps, says next week is her last session. Patient states that she is due for nerve block in SI joint at [facility] who she sees regularly, states that she needs approval from Dr. Ohara on this. Date: 11/26/2023 2:25 PM Patient: Bettie uBrns MR#: [id number] : 1945 Age: 78 y.o. Referring Physician: [...] LUMPECTOMY FOOT SURGERY HEART CATHETERIZATION no stents TX ENDOMETRIAL CRYOABLATION W/US & ENDOMETRIAL CR REMOVAL [...] x 1 month, then 2x/week for maintainence, [facility]/pharmacy #[id number], 165, cm, 02/11/23 10:41:00 EDT, Height/Length Dosing, [...] x 1 month, then 2x/week for maintainence, [facility]/pharmacy #[id number], 165, cm, 02/11/23 10:41:00 EDT, Height/Length Dosing, [...] anticipated. Patient has been doing PT at [facility] and this helps, says next week is her last session. Patient states that she is due for nerve block in SI joint at [facility] who she sees regularly, states that she needs approval from Dr. Ohara on this. Date: 11/26/2023 2:25 PM Patient: Bettie Burns MR#: [id number] : 1945 Age: 78 y.o. Referring Physician: [...] LUMPECTOMY FOOT SURGERY HEART CATHETERIZATION no stents TX ENDOMETRIAL CRYOABLATION W/US & ENDOMETRIAL CR REMOVAL [...] x 1 month, then 2x/week for maintainence, [facility]/pharmacy #[id number], 165, cm, 02/11/23 10:41:00 EDT, Height/Length Dosing, [...] x 1 month, then 2x/week for maintainence, [facility]/pharmacy #[id number], 165, cm, 02/11/23 10:41:00 [...] penicillins, and tramadol. documented in this encounter [facility] 09-17-2023 Telephone encounter Note Order faxed to Torey Julio Pt aware. Matt Adams RN [facility] 09-17-2023 Miscellaneous Notes Order faxed to Torey Julio Pt aware. Matt Adams RN Pt called to request yearly Mammogram order I have pended order as previously completed Pt requests to fax to Nori Lema [phone] BR/: please review and sign if agreeable Matt Adams RN documented in this encounter [facility] 09-17-2023 Telephone encounter Note Pt called to request yearly Mammogram order I have pended order as previously completed Pt requests to fax to Nori Lema [phone] BRM/HM: please review and sign if agreeable Matt Adams RN [facility] 08-20-2023 History of Presen t [...] she is interested in Physcial Therapy through [facility]. Date: 08/20/2023 2:38 PM Patient: Bettie Burns MR#: [id number] : 1945 Age: 78 y.o. Referring Physician: Self, Self Insurance: Payor: MEDICARE [employer] HMO OR PPO / Plan: MEDICARE AETNA [...] LUMPECTOMY FOOT SURGERY HEART CATHETERIZATION no stents TX ENDOMETRIAL CRYOABLATION REMOVAL BILIARY DUCT/GALLBLADDER CALCULI/DEBRIS PERCUTANEOUS [...] x 1 month, then 2x/week for maintainence, [facility]/pharmacy #[id number], 165, cm, 02/11/23 10:41:00 [...] arise. All pertinant portions of the clinical client support consultant documentation was reviewed and I agree with [...] she is interested in Physcial Therapy through [facility]. Date: 08/20/2023 2:38 PM Patient: Bettie Burns MR#: [id number] : 1945 Age: 78 y.o. Referring Physician: [...] LUMPECTOMY FOOT SURGERY HEART CATHETERIZATION no stents TX ENDOMETRIAL CRYOABLATION REMOVAL BILIARY DUCT/GALLBLADDER CALCULI/DEBRIS PERCUTANEOUS [...] x 1 month, then 2x/week for maintainence, [facility]/pharmacy #[id number], 165, cm, 02/11/23 10:41:00 EDT, Height/Length Dosing, [...] penicillins, and tramadol. documented in this encounter [facility] 07-23-2023 History of Presen t illness [...] 07/23/2023 2:45 PM Patient: Bettie Burns MR#: [id number] : 1945 Age: 78 y.o. Referring Physician: [...] LUMPECTOMY FOOT SURGERY HEART CATHETERIZATION no stents TX ENDOMETRIAL CRYOABLATION REMOVAL BILIARY DUCT/GALLBLADDER CALCULI/DEBRIS PERCUTANEOUS [...] x 1 month, then 2x/week for maintainence, [facility]/pharmacy #[id number], 165, cm, 02/11/23 10:41:00 EDT, Height/Length Dosing, [...] no erythema, drainage or evidence of dehiscence. Jefferson intact. Calves are soft and nontender with [...] arthrex anchors -Incision was cleansed with Betadine. Myriam were removed without issue, steri strip placed. [...] visit. All pertinant portions of the clinical client support consultant documentation was reviewed. Divine Mahmood I have reviewed the findings of the clinical client support consultant and agree with their assessment. Divine Mahmood [...] 07/23/2023 2:45 PM Patient: Bettie Burns MR#: [id number] : 1945 Age: 78 y.o. Referring Physician: [...] LUMPECTOMY FOOT SURGERY HEART CATHETERIZATION no stents TX ENDOMETRIAL CRYOABLATION REMOVAL BILIARY DUCT/GALLBLADDER CALCULI/DEBRIS PERCUTANEOUS [...] x 1 month, then 2x/week for maintainence, [facility]/pharmacy #[id number], 165, cm, 02/11/23 10:41:00 EDT, Height/Length Dosing, [...] penicillins, and tramadol. documented in this encounter [facility] 07-17-2023 Miscellaneous Notes Dose confirmed with patient documented in this encounter [facility] 07-17-2023 Telephone encounter Note Dose confirmed with patient [facility] 07-15-2023 Miscellaneous Notes Pt called [facility] had knee surgery July 06 was [...] was willing. slm documented in this encounter [facility] 07-15-2023 Telephone encounter Note Pt called had [...] the ER and she was willing. slm [facility] [employer] [facility] 2023 Miscellaneous Notes AVS given to patient. [...] 07, 2023 ATTENDING PHYSICIAN: Miko Ohara M.D. 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 PROCEDURE PERFORMED: Unlisted procedure of right hip and pelvis, dual-row suture anchor repair of 100% massive abductor tear of right hip, work equivalent similar to CPT 72762 Periarticular injection of right hip. ANESTHESIA: General. [...] it as a CPT similar to that, 59800. ATTENDING/ASSISTING PARTICIPATION: This operation could not have been safely performed (without compromising the technical results or length of the procedure) without the assistance of a skilled surgical instruments inspector. A surgical instruments inspector was medically necessary for positioning, retraction and [...] OPERATIVE/PROCEDURE NOTE Bettie Burns 77 y.o. 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 Item Serial No. Magnetic Tape Composer Operator Lot No. LRB No. Used Action ANCHORS, 5.5 NON PUNCHING - [id number] ANCHORS, 5.5 NON PUNCHING HIST ARTHREX [id number] Right 1 Implanted ANCHORS, 5.5 NON PUNCHING - [id number] ANCHORS, 5.5 NON PUNCHING HIST ARTHREX [id number] Right 3 Implanted SPECIMENS ID Type Source Tests Collected by Time Destination A : Right hip incisional fluid (1-2) (Anaerobic & Aerobic) Fluid/Swab - Other SURGICAL WOUND ANAEROBE CULTURE Miko Ohara MD 07/07/2023 1616 B : Right hip fluid (cell count, defferential, & culture) Fluid, Unspecified FLUID, UNSPECIFIED BODY FLUID CELL COUNT Miko Ohara MD 07/07/2023 6291 C : Right hip suture (1-3) (Anaerobic & Aerobic) Surgical Wound SURGICAL WOUND FUNGUS CULTURE, ACID FAST CULTURE, ANAEROBE CULTURE Miko Ohara MD 07/07/2023 [id number] Paula Fitzpatrick APRN-AUSTEN July 07, 2023 3:28 PM Unable to doppler right dorsalis pedis pulse. documented in this encounter [facility] 2023 Nurse Note AVS given to [...] patient discharged home with daughter and . [facility] 2023 Hospital Discharg e instructions Carmen [...] at all times - Use a leg sample body builder to get in and out of bed [...] - 2023 12:01 PM EST Contact Office ([phone]) if: > Any falls or injuries > [...] or operative leg. documented in this encounter [facility] 2023 History of Presen t illness [...] OR ABSENT: absent Drainage none Dressing: Clean/dry/intact FATIH in place DVT Screening Exam: Calves soft/non-tender [...] LUMPECTOMY FOOT SURGERY HEART CATHETERIZATION no stents TX ENDOMETRIAL CRYOABLATION REMOVAL BILIARY DUCT/GALLBLADDER CALCULI/DEBRIS PERCUTANEOUS [...] 0 Equipment Available wheeled walker;elevated toilet seat;shower chair;import customs clearing agent Cognitive Status Examination Orientation Status (Cognition) oriented [...] Supine to Sit, Rehab Eval Level of Terrell: Supine/Sit stand-by assist Physical Assist/Nonphysical Assist: Supine/Sit 1 person assist Transfer Skill: Sit to Stand, Rehab Eval Level of Terrell: Sit/Stand contact guard Physical Assist/Nonphysical Assist: Sit/Stand 1 person assist Weight-Bearing Restrictions: Sit/Stand toe touch weight-bearing Assistive Device for Transfer: Sit/Stand wheeled walker Upper Body Dressing Level of Terrell independent Physical Assist/Nonphysical Assist set-up required Lower Body Dressing Level of Terrell maximum assist (25% patients effort) Physical Assist/Nonphysical Assist 1 person assist Assistive Device import customs clearing agent General Therapy Interventions Planned Therapy Interventions (OT Eval) ADL retraining;balance training;transfer training Clinical Impression Co-evaluation/co-treatment performed? Yes, combination of simultaneous billable and individual billable skilled care was necessary due to medical complexity and functional deficits Patient Instruction/Education comments Pt instructed on LB dressing techniques donning underwear and shorts min assist in sitting and standing with training on use of import customs clearing agent to maintain hip precautions Rehab Potential (OT [...] hygiene training Therapist Information License # [id number] 1. Pt will complete LB dressing SBA [...] LUMPECTOMY FOOT SURGERY HEART CATHETERIZATION no stents TX ENDOMETRIAL CRYOABLATION REMOVAL BILIARY DUCT/GALLBLADDER CALCULI/DEBRIS PERCUTANEOUS [...] Supine to Sit, Rehab Eval Level of Terrell: Supine/Sit stand-by assist Physical Assist/Nonphysical Assist: Supine/Sit 1 person assist Transfer Skill: Sit To Stand, Rehab Eval Terrell (Sit-Stand Transfers) contact guard Physical Assist/Nonphysical Assist: Sit/Stand 1 person assist Weight-Bearing Restrictions: Sit/Stand toe touch weight-bearing Assistive Device For Transfer: Sit/Stand 2 wheeled walker Gait Skills, PT Eval Level of Terrell: Gait contact guard Physical Assist/Nonphysical Assist: Gait [...] educated on hip precautions, use of leg sample body builder and weight bearing status. Pt educated to [...] WITH DR OHARA. documented in this encounter [facility] 2023 Hospital course Narrative Images from [...] x 1 month, then 2x/week for maintainence, [facility]/pharmacy #[id number], 165, cm, 02/11/23 10:41:00 [...] Dept Phone 07/23/2023 2:30 PM Divine Mahmood [facility] [phone] documented in this encounter [facility] 2023 Surgery Postoperative evaluation and management note DATE OF PROCEDURE: July 07, 2023 ATTENDING PHYSICIAN: Miko Ohara M.D. 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 PROCEDURE PERFORMED: Unlisted procedure of right hip and pelvis, dual-row suture anchor repair of 100% massive abductor tear of right hip, work equivalent similar to CPT 29098 Periarticular injection of right hip. ANESTHESIA: General. [...] it as a CPT similar to that, 20364. ATTENDING/ASSISTING PARTICIPATION: This operation could not have been safely performed (without compromising the technical results or length of the procedure) without the assistance of a skilled surgical instruments inspector. A surgical instruments inspector was medically necessary for positioning, retraction and instrumentation. [facility] 2023 Nurse Note Assessment remains unchanged from previous. Neuro checks WN, abductor pillow in place. Call light within reach. [facility] 2023 Nurse Note Assessment remains unchanged from previous. Neuro checks WNL, abductor pillow in place. Denies futher needs, call light within reach. [facility] 07-07-2023 Consult note Associated Order (s): IP CONSULT TO GENERAL MEDICINE Medical consultation Patient is a 77 year old female who presents for revision total hip arthroplasty. She was at her baseline state of health prior to surgery and was medically optimized by her primary care provider and switching operator. Testing notable for a blood sugar of [...] LUMPECTOMY FOOT SURGERY HEART CATHETERIZATION no stents TX ENDOMETRIAL CRYOABLATION REMOVAL BILIARY DUCT/GALLBLADDER CALCULI/DEBRIS PERCUTANEOUS [...] metabolic panel in the morning GI prophylaxis. [facility] 07-07-2023 Consult note Associated Order (s): IP CONSULT TO GENERAL MEDICINE Medical consultation Patient is a 77 year old female who presents for revision total hip arthroplasty. She was at her baseline state of health prior to surgery and was medically optimized by her primary care provider and switching operator. Testing notable for a blood sugar of [...] LUMPECTOMY FOOT SURGERY HEART CATHETERIZATION no stents TX ENDOMETRIAL CRYOABLATION REMOVAL BILIARY DUCT/GALLBLADDER CALCULI/DEBRIS PERCUTANEOUS [...] morning GI prophylaxis. documented in this encounter [facility] 07-07-2023 Nurse Note Arrived to room [facility] from PACU. Bedside report received from RICARDO Jacobo. Oriented to room and provided call light. Admission assessment, head to toe and post op vitals initiated. Fresh ice water and crackers provided. Family members accompanying patient, denies additional needs, call light in reach. FAITH intact flashing green. [facility] 07-07-2023 Nurse Note Patient transferred to [facility] via cart in stable condition. Report given [...] score of: 2 documented in this encounter [facility] 07-07-2023 Nurse Surgical operation note Patient transferred to [facility] via cart in stable condition. Report given to RICARDO Kim. Cart left in locked and lowest position with side rails up x2. Snack and call light given to patient. Monitors and alarms on and attached to patient. [facility] 07-07-2023 Nurse Surgical operation note Patient transported to PACU with Damián TILLEY. Reports given to Sara SILVA at 1530H. [facility] 07-07-2023 Surgery Postoperative evaluation and management note POST OPERATIVE/PROCEDURE NOTE Bettie Burns 77 y.o. female [id number] SURGEON Surgeons and Role: * Miko Ohara MD - Primary DIRECT CASTING OPERATOR Paula Fitzpatrick APRN-AUSTEN ANESTHESIOLOGIST POWERHOUSE OILER: Chance Ngo CRNA; Damián Saenz APRN-TREVA SURGICAL STAFF Barge Loader: Kisha Karimi RN; Whit Govea RN Nurse Practitioner: Paula Fitzpatrick APRN-AUSTEN Scrub Person: Chi Goldberg RN; Naomi Maier RN; Daryl Duran; Hao Milton, TRANSFER CONTROLLER PROCEDURE PERFORMED Procedure(s) (LRB): OPEN ABDUCTOR TEAR [...] Implant Name Type Inv. Item Serial No. Magnetic Tape Composer Operator Lot No. LRB No. Used Action ANCHORS, 5.5 NON PUNCHING - [id number] ANCHORS, 5.5 NON PUNCHING HIST ARTHREX [id number] Right 1 Implanted ANCHORS, 5.5 NON PUNCHING - [id number] ANCHORS, 5.5 NON PUNCHING HIST ARTHREX [id number] Right 3 Implanted SPECIMENS ID Type Source [...] Miko Ohara MD 07/07/2023 1434 Paula Fitzpatrick APRN-FORESTRY TECHNICIAN July 07, 2023 3:28 PM [facility] Nurse Surgical operation note OR 3 room temp: 65.1F Humidity: 44% Fire score of: 2 [facility] 07-07-2023 Nurse Note Unable to doppler right dorsalis pedis pulse. [facility] 06-19-2023 Miscellaneous Notes Surgeon: Dr Miko [...] Dr Ohara office. documented in this encounter [facility] 06-19-2023 Telephone encounter Note Surgeon: Dr Miko [...] on risk, holding Eliquis and Celebrex question. [facility] 06-19-2023 Telephone encounter Note Okay to proceed with surgery at moderate risk Can use Celebrex Hold Eliquis for 2 days resume after surgery [facility] Work Phone: 06-19-2023 Telephone encounter Note Clearance note faxed back to Dr Ohara office. [facility] 06-18-2023 History of Presen t illness Narrative [...] year ago with Dr. Denver Hughes in [place]. Pt states she is looking for a second opinion due to having issues from this past surgery. Date: 06/18/2023 2:32 PM Patient: Bettie Burns MR#: [id number] : 1945 Age: 77 y.o. Referring Physician: [...] APPENDECTOMY BREAST LUMPECTOMY FOOT SURGERY HEART CATHETERIZATION TX ENDOMETRIAL CRYOABLATION REMOVAL BILIARY DUCT/GALLBLADDER CALCULI/DEBRIS PERCUTANEOUS [...] tendons as discussed in detail above. 3. [id number] amount of fluid along the lateral aspect [...] nasal MRSA screening, scheduling an appointment for [facility] and the potential surgical date, and reviewing [...] APPENDECTOMY BREAST LUMPECTOMY FOOT SURGERY HEART CATHETERIZATION TX ENDOMETRIAL CRYOABLATION REMOVAL BILIARY DUCT/GALLBLADDER CALCULI/DEBRIS PERCUTANEOUS W/ IMAGE REMOVAL CATARACT (PEM) ROTATOR CUFF REPAIR History reviewed. No pertinent family history. Social History Socioeconomic History Marital status: Tobacco Use Smoking status: Never Smokeless tobacco: Never Social Determinants of Health Food Insecurity: No Food Insecurity (06/02/2023) Received from [facility] Hunger Screening Within the past 12 months [...] Oxycodone Penicillins Tramadol documented in this encounter [facility] 06-02-2023 History of Presen t illness [...] issues. Past Medical History: Diagnosis Date A-fib [place] hx of Arrhythmia 12/2016 ATRIAL FIBRILLATION Arthritis Breast cancer ([facility]) 11/14/2015 LEFT COVID-19 03/2020 History of bleeding ulcers Hypertension Migraines Pneumonia d/t covid Prolonged emergence from general anesthesia Visual impairment glasses No data recorded No data recorded No data recorded Past Surgical History: Procedure Laterality Date ABLATION OF DYSRHYTHMIC FOCUS Right nerve ablation, L4 and L5 Afib ablation with SHANICE - CRYO, Rhythmia, ICE N/A 09/28/2018 Performed by Amber Quiñonez MD at [facility] () ARTHROSCOPY REPAIR ROTATOR CUFF SHOULDER Right 05/16/2020 Performed by Melchor Rivera DO at [facility] ARTHROSCOPY SHOULDER Right 05/16/2020 Performed by Melchor Rivera DO at [facility] BREAST BIOPSY Left 2016 BREAST LUMPECTOMY Left 11/14/2015 WITH RADIATION BREAST SURGERY Left 2012 lumpectomy CATARACT EXTRACTION CHOLECYSTECTOMY COLONOSCOPY Coronary angiogram and left ventricular gram/pressure N/A 08/08/2021 Performed by Bertram Lal MD at [facility] CARDIAC CATH LABS EYE SURGERY lids [...] STARKS MD Referring Physician: Elliot Starks MD [address] [place] [address] documented in this encounter [facility] 05-14-2023 History of Presen t illness Narrative Ortho Nurse - 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 Referring Physician: [...] [x]cane, []bracing Are you followed by a switching operator? [x] [] Name: Dr. Waleska Zhu - [facility] Are you followed by pain management? [x] [] Name: Dr. Cedeno - Xenia Wayne @ [facility] Are you followed by any other specialists? [x] [] Name: Oncolgist - Dr. Choi [facility] Urologist - Dr. Christian Bourne [...] abductor muscles as well as ESR/CRP and [employer] and Chromium labs today. I will see [...] APPENDECTOMY BREAST LUMPECTOMY FOOT SURGERY HEART CATHETERIZATION TX ENDOMETRIAL CRYOABLATION REMOVAL BILIARY DUCT/GALLBLADDER CALCULI/DEBRIS PERCUTANEOUS [...] Oxycodone Penicillins Tramadol documented in this encounter [facility] 03-30-2023 Evaluation note Encounter Date Diagnosis [...] verbalizes understanding and agrees with tx plan. [facility] Other 10-11-2023 NoteChief Complaint Referral *Frequent UTI [...] states that she was put on a extermination inspector abx which has helped a lot. Pt [...] a hematuria workup including a scope, at [facility]. Occasional visible blood w/UTI. UA today shows moderate blood. Discussed doing a hematuria workup if the pt would like to. Pt states that she is not worried aboutthis and does not see the need to have t (more content not included)...[facility]:Result Comment: Electronically Signed By: Alfreda Miller MD\.br\Date and Time Signed: 02/11/23 12:13EDT\.br\Electronically Co-Signed By: Karlee Ramos.br\Date and Time Co-Signed: 02/11/23 11:16 [id number] Hospital Discharge instructions Patient Education 02/11/2023 11:16:08 [...] provider. Document Revised: 08/29/2021 Document Reviewed: 08/29/2021 [employer] Patient Education 2022 [employer]. Follow Up Care 11/06/2022 15:31:52 With:Paul VILLEGAS, Alfreda Palacios URBranden, URO Address: When:Within 3 Month(s) [facility] [place] 07-17-2023 Evaluation note* Encounter Date Diagnosis Assessment Notes Treatment Notes Treatment Clinical Notes Nov, Dysuria (ICD-10 - R30.0) [facility] Other 06-29-2023 Evaluation note* Encounter Date Diagnosis Assessment Notes Treatment Notes Treatment Clinical Notes Oct, Frequent UTI (ICD-10 - N39.0) Pt requests Urology referral. Discussed also getting CT to move along process. Oct, Dyshidrotic eczema (ICD-10 - L30.1) Will treat with steroid cream prn [facility] Other 06-26-2023 Evaluation note* Encounter Date Diagnosis Assessment Notes Treatment Notes Treatment Clinical Notes Oct, Dysuria (ICD-10 - R30.0) [facility] Other 05-11-2023 Miscellaneous Notes* Telephone Encounter - Matt Adams RN - 09/11/2022 11:43 AM EDT Order faxed to [facility] and pt is aware. Matt Adams RN * Telephone Encounter - Matt Adams RN - 09/11/2022 9:51 AM EDT Pt called to request yearly Mammogram order I have pended order as previously completed Pt requests to fax to Nori Lema [phone] BRM/HM: please review and sign if agreeable Matt Adams RN [facility]* Encounter Date Diagnosis Assessment Notes Treatment Notes Treatment Clinical Notes Aug, Dysuria (ICD-10 - R30.0) [facility] Other 03-16-2023 Evaluation note* Encounter Date Diagnosis [...] N32.81) chronic and improved on present med [facility] Other 02-20-2023 Evaluation note* Encounter Date Diagnosis Assessment Notes Treatment Notes Treatment Clinical Notes Jun, Dysuria (ICD-10 - R30.0) [facility] Other 02-03-2023 Evaluation note* Encounter Date Diagnosis Assessment Notes Treatment Notes Treatment Clinical Notes Jun, OAB (overactive bladder) (ICD-10 - N32.81) [facility] Other 02-01-2023 Evaluation note* Encounter Date Diagnosis Assessment Notes Treatment Notes Treatment Clinical Notes Jun, OAB (overactive bladder) (ICD-10 - N32.81) Patient request to try new medication reviewed side effect profile. Patient declines urology or SITE ACQUISITION MANAGER referral at this time. Jun, Essential hypertension (ICD-10 - I10) reviewed and updated medications she will follow-up with cardiology in Jun, Hypokalemia (ICD-10 - E87.6) Reviewed and updated medications. Discussed foods that are high in potassium Jun, Right lumbar pain (ICD-10 - M54.50) Follow-up with Dr. Rivera as scheduled in June. She does have limping with her gait. [facility] Other 05-26-2022 Miscellaneous Notes* Telephone Encounter - Andrew Choi MD - 09/26/2021 5:13 PM EDT Okay to change to screening mammogram. Order signed. ASIYA Ford * Telephone Encounter - Mikaela Thompson RN - 09/26/2021 2:33 PM EDT Pt scheduled for diagnostic mamm tomorrow @ [facility]. Hospital calls to ask if this could be changed to a screening mammogram since the pt is greater than 2 years from diagnosis? [facility]aela Thompson [facility] Future Appointments Appointment Date:05/27/2023 08:45:00 AM Scheduled Provider:Alfread Miller MD Location:[facility] Appointment Type:URO Office Visit [facility] evaluation note* Diagnosis Encounter for screening mammogram for malignant neoplasm of breast- Primary Other screening mammogram documented in this encounter [facility] note* Diagnosis Malignant neoplasm of upper-outer quadrant of left breast in female, estrogen receptor positive (HCC)- Primary documented in [facility] encounter [facility] noteNo InformationNomadison medical center [employer] Other Evaluation note* Diagnosis Encounter for screening mammogram for malignant neoplasm of breast- Primary Other screening mammogram documented in [facility] noteNo assessment information [facility] Work Phone: Evaluation note* Diagnosis Pain in prosthetic joint, initial encounter- Primary Primary osteoarthritis of right hip Primary localized osteoarthrosis, pelvic region and thigh [facility] Diagnosis Paroxysmal atrial fibrillation (CMS-HCC)- Primary Atrial fibrillation Primary hypertension Unspecified essential hypertension Chronic coronary artery disease Coronary atherosclerosis of unspecified type of vessel, [place] or graft [facility] Right hip pain- Primary Pain in joint, pelvic region and thigh Pre-op testing- Primary Preoperative examination, unspecified Essential (primary) hypertension Unspecified essential hypertension Abnormal finding of blood chemistry, unspecified Abnormal coagulation profile Tear of rotator cuff of right hip, initial encounter 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, initial encounter [facility] Status post revision of total hip- Primary Hip joint replacement by other means Pre-op testing Preoperative examination, unspecified Tear of rotator cuff of right hip, initial encounter 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, initial encounter Acute postoperative pain of right hip [facility] Diagnosis Tear of gluteus minimus tendon, right, initial encounter- Primary [facility] Diagnosis Right hip pain- Primary Pain in joint, pelvic region and thigh [facility]* Diagnosis Onset Date Resolution Status Dysuria noneactive [facility] Work Phone: Evaluation note* Diagnosis Hx of total hip arthroplasty, right- Primary [facility] N[facility]ative - Reported* Type Description [...] replacement 12/16/2021 Hospitalization History SEE SURGICAL HX [facility] Other Hospital course Narrative No data available for this section [facility] Discharge instructions* Attachments The following attachments cannot be sent through Care Everywhere. * [facility] AMB SMOKING CESSATION LINKS documented in this encounterAvita MentorCloud SystemInstructionsNot on filedocumented in this encounterProMedivt MentorCloud SystemInstructionsNot on filedocumented in this encounterProMadison Hospital MentorCloud SystemInstructionsNot on filedocumented in this encounterProUniversity Hospitals St. [facility] SystemProgress note No data available for this section [facility] reason for referral (narrative)* Diagnostic Procedure Only (Routine) - Pending Review Specialty Diagnoses / Procedures Referred By Contac t Referred To Contact [facility] Diagnoses Encounter for screening mammogram for malignant neoplasm of breast Procedures SHANE SCREENING W YAW SCREENING DIGITAL BREAST TOMOSYNTHESIS BI SCREENING MAMMOGRAPHY BI 2-VIEW BREAST INC Andrew Miguel MD [address] [place] [address] [place] [address] [facility] [address] [place] [phone] Referral ID Status Reason Start Date Expiration Date Visits Requested Visits Authorized [id number] Pending Review Auto-Generat ed Referral 09/26/2021 10/26/2022 1 1 T [facility] for referral (narrative)* Diagnostic Procedure Only (Routine) - Pending Review Specialty Diagnoses / Procedures Referred By Contac t Referred To Contact [facility] Diagnoses Encounter for screening mammogram for malignant neoplasm of breast Procedures SHANE SCREENING W YAW SCREENING DIGITAL BREAST TOMOSYNTHESIS BI SCREENING MAMMOGRAPHY BI 2-VIEW BREAST INC Andrew Miguel MD [address] [place] [address] [place] [address] [facility] [address] [place] [phone] Referral ID Status Reason Start Date Expiration Date Visits Requested Visits Authorized [id number] Pending Review Auto-Generat ed Referral 09/11/2022 10/11/2023 1 1 [facility] for referral (narrative)* (Routine) Specialty Diagnoses / Procedures Referred By Contac t Referred To Contact [facility] REV LOC [address] [facility] [place] [address] Referral ID Status Reason Start Date Expiration Date Visits Re quested Visits Authorized [facility] for referral (narrative)* Consultation (Routine) - Patient to Arrange Specialty Diagnoses / Procedures Referred By Contac t Referred To Contact Physical Therapy Diagnoses Right hip pain Divine Mahmood [address] [place] [id number] Referral ID Status Reason Start Date Expiration Date V isits Requested Visits Authorized [id number] Patient to Arrange 08/20/2023 09/13/2024 1 1 Scheduling Instructions . * Diagnostic X-Ray (Routine) - New Request Specialty Diagnoses / Procedures Referred By Juan wren Referred To Contact Diagnoses Right hip pain Procedures XR HIP WITH PELVIS RIGHT ElaJermaineDivine M [address] [place] [id number] Referral ID Status Reason Start Date Expiration Date V isits Requested Visits Authorized [id number] New Request 08/20/2023 09/13/2024 1 1 [facility] Diagnostic Procedure Only (Routine) - Pending Review Specialty Diagnoses / Procedures Referred By Juan wren Referred To Contact [facility] Diagnoses Encounter for screening mammogram for malignant neoplasm of breast Procedures SHANE SCREENING W YAW SCREENING DIGITAL BREAST TOMOSYNTHESIS BI SCREENING MAMMOGRAPHY BI 2-VIEW BREAST INC CAD Andrew Choi MD [address] [place] [address] [place] [address] [facility] [address] [place] [address] Referral ID Status Reason Start Date Expiration Date Visits Requested Visits Authorized [id number] Pending Review Auto-Generat ed Referral 09/17/2023 10/16/2024 1 1 [facility] Summary Purpose Family History Relationship Condition Age at Onset Recorded Date/T nilam father Unknown mother Unknown Advance Directives Documents on File Type Date Recorded 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 Living Will 05/21/2020 9:37 AM Durable Power of Die Presser 05/21/2020 9:27 AM Durable Power of Die Presser 05/16/2020 6:05 AM Living Will 05/16/2020 6:04 AM Documents on File Type Date Recorded 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 Advance Directives/Living Will 06/25/2023 9:17 AM DURABLE POWER OF STRUCTURAL DESIGN ENGINEER FOR HEALTHCARE 06/25/23 Advance Directives/Living Will 06/25/2023 [...] HIP WITH PELVIS RIGHT Miko Ohara MD [address] [place] [id number] Referral ID Status Reason Start Date Expiration Date V isits Requested Visits Authorized [id number] New Request 11/16/2023 12/10/2024 1 1 Specialty Diagnoses / Procedures Referred By Contac t Referred To Contact Diagnoses Tear of gluteus minimus tendon, right, initial encounter Procedures XR HIP WITH PELVIS RIGHT Divine Mah[facility] [address] [place] [id number] Referral ID Status Reason Start Date Expiration Date V isits Requested Visits Authorized [id number] New Request 07/20/2023 08/13/2024 1 1 Specialty Diagnoses / Procedures Referred By Contac t Referred To Contact Diagnoses Pain in prosthetic joint, initial encounter Procedures MRI HIP RIGHT WITHOUT CONTRAST TX MRI LOWER EXTREM JT, W/O CONTRAST Miko Ohara MD [address] [place] [id number] Referral ID Status Reason Start Date Expiration Date V isits Requested Visits Authorized [id number] New Request 05/14/2023 06/07/2024 1 1 Specialty Diagnoses / Procedures Referred By Contac t Referred To Contact Diagnoses Pain in prosthetic joint, initial encounter Procedures COBALT AND CHROMIUM,WB Miko Ohara MD [address] [place] [address] Referral ID Status Reason Start Date Expiration Date V isits Requested Visits Authorized [id number] New Request 05/14/2023 06/07/2024 1 1 Specialty Diagnoses / Procedures Referred By Juan wren Referred To Contact Diagnoses Primary osteoarthritis of right hip Procedures XR HIP WITH PELVIS RIGHT Miko Ohara MD [address] [place] [address] Referral ID Status Reason Start Date Expiration Date V isits Requested Visits Authorized [id number] New Request 05/06/2023 05/30/2024 1 1 Reason *FU 11/12 [place] office Diagnosis 1 Frequent UTI (N39.0) Referral Organization [facility] Referring Provider First Name Elliot Referring Provider Last Name Raudel Referring Provider Specialty Family [facility] Referred Organization [facility] Referred Provider ALFREDA MILLER Referred Address [address] [place], [place],[address] Referred Provider Specialty Urology Referral Priority Routine [...] section and content) DATE CREATED AUTHOR 10/28/2017 [facility] DATE CREATED AUTHOR AUTHOR'S ORGANIZ ATION 03/21/2020 [facility] DATE CREATED AUTHOR AUTHOR'S ORGANIZ ATION 09/13/2021 [facility] DATE CREATED AUTHOR AUTHOR'S ORGANIZ ATION 06/11/2022 [facility] DATE CREATED AUTHOR AUTHOR'S ORGANIZ ATION 11/18/2022 [facility] DATE CREATED AUTHOR AUTHOR'S ORGANIZ ATION 05/20/2023 [facility] DATE CREATED AUTHOR AUTHOR'S ORGANIZ ATION 06/06/2023 [facility] DATE CREATED AUTHOR AUTHOR'S ORGANIZ ATION 09/19/2023 [facility] DATE CREATED AUTHOR AUTHOR'S ORGANIZ ATION 10/01/2023 [facility] DATE CREATED AUTHOR AUTHOR'S ORGANIZ ATION 10/17/2023 [facility] DATE CREATED AUTHOR AUTHOR'S ORGANIZ ATION 12/30/2023 [facility] Source Comments (unrecognize d section and content) In the event this informatio n is protected by the Federal Confidentiality of Alcohol and Drug Abuse Patient Records regulations: The Federal rules restrict any use of the information to criminally investigate or prosecute any alcohol or drug abuse patient.[facility] the event this information is protected by the Federal Confidentiality of Alcohol and Drug Abuse Patient Records regulations: The Federal rules restrict any use of the information to criminally investigate or prosecute any alcohol or drug abuse patient.[facility] the event this information is protected by the Federal Confidentiality of Alcohol and Drug Abuse Patient Records regulations: The Federal rules restrict any use of the information to criminally investigate or prosecute any alcohol or drug abuse patient.[facility] the event this information is protected by the Federal Confidentiality of Alcohol and Drug Abuse Patient Records regulations: The Federal rules restrict any use of the information to criminally investigate or prosecute any alcohol or drug abuse patient.[facility] Reason for Visit (unrecogniz ed section and content) Reason Comments Radiology Mammogram Reason Comments Lab Orders Reason Comments Orders Specialty Diagnoses / Procedures Referred By Juan wren Referred To Contact Diagnoses Primary osteoarthritis of right hip Procedures XR HIP WITH PELVIS RIGHT Miko Ohara MD [address] [place] [address] Referral ID Status Reason Start Date Expiration Date V isits Requested Visits Authorized [id number] New Request 05/06/2023 05/30/2024 1 1 Reason [...] right hip prosthesis, initial encounter [T84.090A] Procedures TX PELVIS/HIP JOINT SURGERY UNLISTED TX REVISE TOTAL HIP REPLACEMENT GLUTEUS MEDIUS TENDON REPAIR REVISION ARTHROPLASTY HIP BOTH ACETABULAR & FEMORAL COMPONENTS Miko Ohara MD [address] [place] [address] Referral ID Status Reason Start Date Expiration Date Visits Re quested Visits Authorized [id number] 06/19/2023 1 1 Reason Comments Post Op Visit Specialty Diagnoses / Procedures Referred By Juan wren Referred To Contact Diagnoses Tear of gluteus minimus tendon, right, initial encounter Procedures XR HIP WITH PELVIS RIGHT [facility] [address] [place] [address] Referral ID Status Reason Start Date Expiration Date V isits Requested Visits Authorized [id number] New Request 07/20/2023 08/13/2024 1 1 Reason Comments Med Refill Reason Comments Follow-up Specialty Diagnoses / Procedures Referred By Contac t Referred To Contact Diagnoses Right hip pain Procedures XR HIP WITH PELVIS RIGHT [facility] [address] [place] [address] Referral ID Status Reason Start Date Expiration Date V isits Requested Visits Authorized [id number] New Request 08/20/2023 09/13/2024 1 1 Reason Comments Yearly Exam With Mammogram Reason Comments Pain Specialty Diagnoses / Procedures Referred By Contac t Referred To Contact Diagnoses Hx of total hip arthroplasty, right Procedures XR HIP WITH PELVIS RIGHT Miko Ohara MD [address] [place] [address] Referral ID Status Reason Start Date Expiration Date V isits Requested Visits Authorized [id number] New Request 11/16/2023 12/10/2024 1 1 Care Teams (unrecognized sec tion and content) Charge Gang Weigher Relationship Specialty Start Date End Date Elliot Starks MD [address] [place] [phone] PCP - General Family Practice 11/26/15 Charge Gang Weigher Relationship Specialty Start Date End Date Elliot Starks MD [address] [place] [phone] PCP - General Family Practice 11/26/15 Charge Gang Weigher Relationship Specialty Start Date End Date Elliot Starks MD [address] [place] [address] PCP - General Family Medicine 11/26/15 Team Status: Inactive Member Role Status Dates Elliot Starks MD Attending Provider Active Charge Gang Weigher Relationship Specialty Start Date End Date Elliot Starks MD [address] [place] [address] PCP - General Family Medicine 05/11/23 Charge Gang Weigher Relationship Specialty Start Date End Date Elliot Starks MD [address] [facility] [place] [address] PCP - General Family Medicine 05/11/23 Charge Gang Weigher Relationship Specialty Start Date End Date Elliot Starks MD [address] [place] [address] PCP - General 03/17/17 Charge Gang Weigher Relationship Specialty Start Date End Date Elliot Starks MD [address] [place] [address] PCP - General 03/17/17 Charge Gang Weigher Relationship Specialty Start Date End Date Elliot Starks MD [address] [facility] [place] [address] PCP - General Family Medicine 05/11/23 Charge Gang Weigher Relationship Specialty Start Date End Date Elliot Starks MD [address] [facility] [place] [address] PCP - General Family Medicine 05/11/23 Charge Gang Weigher Relationship Specialty Start Date End Date Elliot Starks MD [address] [place] [address] PCP - General 03/17/17 Charge Gang Weigher Relationship Specialty Start Date End Date Elliot Starks MD [address] [facility] [place] [address] PCP - General Family Medicine 05/11/23 Charge Gang Weigher Relationship Specialty Start Date End Date Elliot Starks MD [address] [facility] [place] [address] PCP - General Family Medicine 05/11/23 Charge Gang Weigher Relationship Specialty Start Date End Date Elliot Starks MD [address] [place] [address] PCP - General 07/15/23 Charge Gang Weigher Relationship Specialty Start Date End Date Elliot Starks MD [address] [place] [address] PCP - General Family Medicine 05/11/23 Charge Gang Weigher Relationship Specialty Start Date End Date Elliot Starks MD [address] [place] [address] PCP - General Family Medicine 05/11/23 Charge Gang Weigher Relationship Specialty Start Date End Date Elliot Starks MD [address] [place] [phone] PCP - General Family Medicine 11/26/15 Team [...] RN)1514 ($$New Bag$$ - Provider: Damián Saenz APRN-POWERHOUSE OILER)1647 (Stopped - Provider: Aidee Field RN) Sodium chloride 0.9% IV solution Intravenous, at 75 mL/hr, CONTINUOUS, Starting on Thu07/07/23 at 1645, Until Thu07/08/23 at 1920, Convert IV to PRN adapter post op day 1 if adequate oral intake, Post-op/Post-Proc 1647 ($$New Bag$$ - Provider: Marcelal Lozano RN)2200 (Rate/Dose Verify - Provider: Aidee [...] 2 g, Intravenous, Administer over 15 Minutes, LAYUP WORKER TO PROCEDURE, 1 dose, Starting on Thu07/07/23 at 1003, Until Thu07/07/23 at 1409, Other, Pre-operative antibiotic, Pre-op/Pre-Proc 1354 (Given - Provider: Melchor Holcomb APRN-POWERHOUSE OILER) HYDROmorphone (DILAUDID) injection 0.5 mg 0.5 mg, [...] BE BASED ON THE PRIMARY CLINICAL RECORDS. [facility]. provides no warranty or guarantee of the accuracy or completeness of information in this document.
[2024-04-04 07:15] VITALS: BP 122/60; PULSE 53; TEMP 36.3; O2SAT 98
[2024-04-04 07:34] VITALS: BP 142/63; PULSE 54; O2SAT 96
[2024-04-04 07:35] VITALS: BP 140/63; PULSE 52; O2SAT 93
[2024-04-04] MEDS: IOHEXOL 240 MG/ML - 10 ML VIAL 24 MG INJ (07:35)
[2024-04-04] MEDS: BUPIVACAINE HCL 0.25% PF 25 MG/10 ML VIAL 2 ML INJ (07:35)
[2024-04-04] MEDS: LIDOCAINE HCL 2% 400 MG/20 ML MDV INJ (07:36)
[2024-04-04] MEDS: TRIAMCINOLONE ACETONIDE 40 MG/ML VIAL INJ (07:36)
--- NOTE | 2024-04-04 07:36 | W.PM.PROCNOT ---
Date of procedure: 04/04/24 Pre-op diagnosis: Pain due to right sacroiliitis Post-op diagnosis: same as pre-op Procedure: Procedure: Right sacroiliac joint injection Medications: Bupivacaine 0.25% 3cc, kenalog 40mg After informed consent was obtained, the patient was brought to the medical procedure unit and placed in the prone position, when a timeout was completed verifying correct patient, procedure, site, positioning, implant, and/or special equipment.? The skin overlying the area was prepped and draped in standard sterile fashion using alcohol.? A 25-gauge needle was inserted towards the right sacroiliac joint under direct fluoroscopic imaging.? Needle tip was advanced until the joint was encountered.? We instilled a total of 2 mL of solution.? Postoperatively needles were removed.? The patient tolerated the procedure well without complication.? The patient reported reduction in pain symptoms postoperatively. Anesthesia: Local Surgeon: Daisy Liz Pathology: none sent Condition: stable Disposition: no change
== END 2024-04-04 07:40 | disposition home or self-care (01) ==
LOC: SURGOUT 06:58
PROVIDERS: PCP Family Medicine; Visit Provider Anesthesiology
DX: M46.1 Sacroiliitis, not elsewhere classified (principal)
CPT/HCPCS: 27096; J0665; J3301; Q9966

== ENCOUNTER 2024-04-14 08:13 | Outpatient (OUT) | payer MEDICARE, SELFPAY ==
--- NOTE | 2024-04-14 08:41 | P.CN_ITS ---
Consult Note: HPI Data of Consult Patient: known to practice within the last 3 years Consult date: 05/18/23 Requesting Physician: Larissa Turner NP Primary Care Provider: Marine Glass MD Consult Narrative Reason for consult: low back and right hip pain Narrative: 78yof who presents for assessment. hx of chronic low back pain that responds well to right L4-5 L5-S1 facet RFA. she continues in >6 weeks of chiropractic therapy, but this has made pain worse. has tried MDP, muscle relaxant, with limited benefit. patient utilizing mckenna aspirin on occasion for pain, failed tylenol. on eliquis, should avoid all NSAIDs. Previous right L4/5 L5/S1 facet RFA providing >50% improvement greater than 6 months. intermittent low back pain -06/13. finds benefit to current medication regimen without side effects. right SIJ injection providing 90% improvement at this time. cc:: CC: Larissa Turner NP Review of Systems ROS Status of ROS 10 or more systems reviewed and unremark able except as noted in history and below Musculoskeletal Reports: back pain PFSH PFSH Medical History (Updated 03/23/24 @ 11:12 by Larissa Turner NP) Neck pain ?M54.2 - Cervicalgia (ICD-10) Upper back pain ?M54.9 - Dorsalgia, unspecified (ICD-10) Low back pain ?M54.50 - Low back pain, unspecified (ICD-10) Osteoarthritis ?M19.90 - Unspecified osteoarthritis, unspecified site (ICD-10) H/O malignant neoplasm of breast ?Z85.3 - Personal history of malignant neoplasm of breast (ICD-10) Hearing deficit ?H91.90 - Unspecified hearing loss, unspecified ear (ICD-10) Former smoker ?Z87.891 - Personal history of nicotine dependence (ICD-10) Hypertension ?I10 - Essential (primary) hypertension (ICD-10) Atrial fibrillation ?I48.91 - Unspecified atrial fibrillation (ICD-10) Cataract ?H26.9 - Unspecified cataract (ICD-10) Surgical History Status post hip surgery ?Z98.890 - Other specified postprocedural states (ICD-10) H/O total hip arthroplasty ?Z96.649 - Presence of unspecified artificial hip joint (ICD-10) H/O cardiac catheterization ?Z98.890 - Other specified postprocedural states (ICD-10) History of cholecystectomy ?Z90.49 - Acquired absence of other specified parts of digestive tract (ICD- 10) H/O: hysterectomy ?Z90.710 - Acquired absence of both cervix and uterus (ICD-10) H/O foot surgery ?Z98.890 - Other specified postprocedural states (ICD-10) H/O eye surgery ?Z98.890 - Other specified postprocedural states (ICD-10) H/O shoulder surgery ?Z98.890 - Other specified postprocedural states (ICD-10) H/O breast surgery ?Z98.890 - Other specified postprocedural states (ICD-10) Social History Smoking status: Never smoker Meds Home Medications and Allergies Home Medications ?Medication ?Instructions ?Recorded ?Confirmed ?Type apixaban 5 mg tablet (Eliquis) 5 mg PO BID 10/28/22 04/04/24 History atenolol 50 mg tablet 75 mg PO DAILY 10/28/22 04/04/24 History baclofen 10 mg tablet 20 mg PO TID 10/28/22 04/04/24 History hydrochlorothiazide 25 mg tablet 25 mg PO DAILY 10/28/22 04/04/24 History lisinopril 20 mg tablet 20 mg PO DAILY 10/28/22 04/04/24 History neuveria vitamin DAILY 10/28/22 History temazepam 30 mg capsule 30 mg PO QPM 10/28/22 04/04/24 History trospium 20 mg tablet 20 mg PO Q12H 04/02/23 04/04/24 History aspirin 500 mg tablet (Mckenna 500 mg PO DAILY PRN pain 11/04/23 04/04/24 History Advanced) cyclosporine 0.05 % eye drops in a drp ophthalmic (eye) 11/04/23 History dropperette omeprazole 40 mg capsule,delayed 40 mg PO DAILY 11/04/23 04/04/24 History release vit C 250 mg-vit E 90 mg-zinc 40 1 tab PO BID 11/04/23 04/04/24 History mg-copper 1 [id number] capsule (PreserVision AREDS-2) flecainide 50 mg tablet mg 12/14/23 History potassium chloride 10 mEq meq PO 12/14/23 History tablet,extended release baclofen 10 mg tablet 10 mg PO TID PRN muscle spasm #270 04/14/24 Rx tabs Allergies Allergy/AdvReac Type Severity Reaction Status Date / Time acetaminophen (From Vicodin) Allergy Severe itching Verified 04/04/24 07:17 hydrocodone (From Vicodin) Allergy Severe itching Verified 04/04/24 07:17 codeine Allergy Unknown Hives Verified 04/04/24 07:17 levofloxacin (From Levaquin) Allergy Unknown uticaria Verified 04/04/24 07:17 morphine Allergy Unknown uticaria Verified 04/04/24 07:17 Penicillins Allergy Unknown uticaria Verified 04/04/24 07:17 tramadol Allergy Unknown uticaria Verified 04/04/24 07:17 Exam Constitutional Documenting provider has reviewed patient's vital signs: yes Common normals: no apparent distress, oriented x3, healthy appearing, alert and well nourished General appearance: cooperative HENMT Common normals: normocephalic, hearing grossly normal bilaterally and moist oral mucous membranes Head and scalp: normocephalic Eye Common normals: PERRL Pupil: PERRL Neck & C-Spine Common normals: full ROM General: normal visual inspection Chest Common normals: inspection of chest normal Respiratory Common normals: normal respiratory effort, no retractions and no use of accessory muscles Back & Pelvis Lumbar spine/lower back: pain with ROM and straight leg raise negative bilaterally Sacroiliac joints: SI joints normal Other: bilateral facet loading positive, right greater than left tenderness over L4-S1 facets negative radiculopathy right SIJ exam negative jovanna(patricks), gaenslens, thigh thrust, compression test Extremity Common normals: normal to inspection and full ROM Neuro Common normals: oriented x3, CN's II-XII intact bilaterally, moves all extremities, no focal motor deficits, no sensory deficits noted, deep tendon reflexes 2+ bilaterally and gait normal Sensorium/orientation: alert Motor exam: strength 5/5 throughout and no movement abnormalities noted Psych Common normals: mental status grossly normal, thought process normal, cooperative, affect normal, speech normal and activity/motor behavior normal Speech: normal speech Thought process: normal thought process Assessment and Plan Assessment and Plan (1) Sacroiliac joint dysfunction: (2) Myofascial pain: (3) Lumbar spondylosis: Plan right SIJ injection providing >80% improvement ongoing consider repeat right L4-5 L5-S1 facet joint RFA, declining at this time continue current medications continue HEP as tolerated f/u 3 months
== END 2024-04-14 08:14 | disposition home or self-care (01) ==
PROVIDERS: PCP Family Medicine; Visit Provider Nurse Practitioner
DX: M53.3 Sacrococcygeal disorders, not elsewhere classified (principal); M79.18 Myalgia, other site; M47.816 Spondylosis without myelopathy or radiculopathy, lumbar region
CPT/HCPCS: G0463

== ENCOUNTER 2024-07-14 08:12 | Outpatient (OUT) | payer MEDICARE, SELFPAY ==
--- OUTSIDE RECORDS SUMMARY | 2024-07-14 08:28 | XMS_ITS | CCD ---
Author Organization [facility] Care Team Providers Care Work From Home Name Role Phone PHYSICIAN, DEFAULT Unavailable Unavailable PHYSICIAN, DEFAULT Unavailable Unavailable Elliot Starks MD Primary Care Provider DR ELLIOT STARKS Primary Care Unavailable ANETA EDUARDO Admitting Unavailable ANETA EDUARDO Attending Unavailable ANETA EDUARDO Consulting Unavailable RAUDEL, DR ELLIOT Nayak Admitting Unavailable STARKS, DR ELLIOT Nayak Attending Unavailable RAUDEL, DR ELLIOT Nayak Primary Care Unavailable RAUDEL, DR ELLIOT Nayak Consulting Unavailable RAUDEL, DR ELLIOT Nayak Primary Care Unavailable PAY, DR MANN Consulting Unavailable PAY, DR MANN Admitting Unavailable PAY, DR MANN Attending Unavailable BRODERICK, LUANA Consulting Unavailable JOAQUÍN ATKINS Consulting Unavailable Elliot Starks Unavailable Elliot Starks MD Primary Care Provider [phone] MD Elliot Starks Attending Provider Elliot Starks Admitting Unavailable Elliot Starks Attending Unavailable ELLIOT STARKS Primary Care Physician Elliot Starks MD Primary Care Provider [phone] Melchor Rivera Admitting Unavail able Melchor Rivera Attending Unavail able Elliot Starks Primary Care Unavailable Ricci Perez Consulting Unavailable Elliot Starks MD Primary Care Provider ELLIOT STARKS Primary Care Unavailable FRANNY, EILEEN Attending Unavailable BLANTON, EILEEN Attending Unavailable EILEEN BLANTON Referring Unavailable ELLIOT STARKS Primary Care Unavailable DONNA DIAZ Attending Unavailable ELLIOT STARKS Referring Unavailable ELLIOT STARKS Primary Care Unavailable MIKO VASQUEZ Attending Unavailable ELLIOT STARKS Referring Unavailable ELLIOT STARKS Primary Care Unavailable ANDREW CHOI Referring Unavailable ELLIOT STARKS Primary Care Unavailable FOSTER, MIKO Attending Unavailable [...] FOSTER, MIKO Referring Unavailable Agusto VILLEGAS, Andrius J Luis Attending Unavailable Giedraitis , Andrius Vytautbrendon Attending Unavailable Gikiaitis , Andrius Vytautbrendon Attending Unavailable Giclaudy VILLEGAS, Andrius Vytautbrendon Attending Unavailable Giclaudy VILLEGAS, Andrius Vytautas Attending Unavailable Starks , Elliot Nayak Primary Care Provider [phone] Elliot Starks MD Primary Care Provider Alfreda Miller Attending Unavailable Jacqui, Maria E Attending Unavailable Jacqui, Maria E Attending Unavailable Jacqui, Maria E Admitting Unavailable Jacqui, Maria E Attending Unavailable Jacqui, Maria E Admitting Unavailable Allergies Allergy Classification Reported Allergen(s) Allergy Type Date of Onset Reaction(s) Facility (20 sources) Acetaminophen / HYDROcodone; Translations: [HYDROCODONE-ACET AMINOPHEN] Drug Allergy 03-19-20 17 Unknown, Itching, Nausea Only, Rash [facility] (20 sources) Baclofen; Translations: [baclofen] Drug Allergy 03-19-20 Unknown, Itching, Rash [facility] (20 sources) Codeine; Translations: [codeine] Drug Allergy 08-09-19 09 Unknown, Itching, Rash [facility] (20 sources) levoFLOXacin; Translations: [levofloxacin] Drug Allergy 03-19-20 17 Unknown, Itching, Nausea Only, Rash [facility] (20 sources) Morphine; Translations: [morphine] Drug Allergy 08-09-19 09 [facility] (14 sources) oxyCODONE Drug Allergy 12-03-19 16 [facility] (8 sources) Penicillins; Translations: [PENICILLINS] Drug Allergy 12-03-19 16 Hives, Rash [facility] (1 source) Baclofen Drug Allergy [facility] Repository (11 sources) Codeine Drug Allergy Unknown [facility] Other (16 sources) Penicillin; Translations: [penicillin] Drug Allergy Unknown [facility] (20 sources) traMADol; Translations: [tramadol] Drug Allergy 07-13-19 20 Itching [facility] (20 sources) zolpidem; Translations: [zolpidem] Drug Allergy 07-04-19 23 Unknown, Hives [facility] (11 sources) Penicillins Drug Allergy 12-03-19 16 Hives, Rash [facility] (1 source) Non-steroidal anti-inflammatory agent Drug allergy 02-02-20 13 Unknown [facility] Other (16 sources) sulfADIAZINE; Translations: [SULFADIAZINE] Drug Allergy 07-04-19 23 Comment:Sulfa [facility] (1 source) Ultram *ANALGESICS - OPIOID* Propensity to adverse reactions Unknown [facility] Other (1 source) Vioxx *ANALGESICS - ANTI-INFLAMMATORY * Propensity to adverse reactions Unknown [facility] Other (1 source) Penicillin G Benzathine & Proc Drug allergy Unknown [facility] Other (1 source) Morphine Sulfate (Concentrate) *ANALGESICS - OPIOI Propensity to adverse reactions Unknown [facility] Other (1 source) Allergies Reconciled Propensity to adverse reactions Unknown [facility] Other (1 source) patient allergy list reviewed by nurse or physicia Propensity to adverse reactions 02-02-20 13 Comment:Done [facility] Other (1 source) Vicodin *ANALGESICS - OPIOID* Propensity to adverse reactions Unknown [facility] Other (5 sources) calcitonin Drug allergy 10-28-19 24 Unknown, [facility] (10 sources) Penicillins Propensity to adverse reactions to drug 05-14-19 24 [facility] (1 source) Acetaminophen / HYDROcodone; Translations: [Vicodin] Drug Allergy [facility] (1 source) Adhesive Tape; Translations: [Tape] Propensity to adverse reactions (disorder) [facility] Rep[facility] (8 sources) Latex Propensity to adverse reactions to drug 06-19-19 24 [facility] (8 sources) *Adhesive Tape Propensity to adverse reactions 07-04-19 23 [facility] (6 sources) Cephalexin Drug Allergy 07-09-19 24 Nausea Only, Dry Mouth, Flushing [facility] (11 sources) Adhesive agent; Translations: [ADHESIVE] Propensity to adverse reactions to drug (disorder) 07-04-19 23 [facility] (15 sources) rofecoxib; Translations: [ROFECOXIB] Drug Allergy 07-04-19 23 [facility] (11 sources) PENICILLIN G BENZATHIN,PROCAIN ; Translations: [PENICILLIN G BENZATHIN,PROCAIN ] Propensity to adverse reactions to drug (disorder) 07-04-19 23 [facility] (4 sources) Acetaminophen Drug Allergy 10-28-19 24 [facility] (4 sources) HYDROcodone Drug Allergy 10-28-19 [facility] (4 sources) Penicillin G Benzathine Allergy to substance 10-28-19 [facility] (1 source) Morphine; Translations: [Morphine Sulfate] Drug Allergy [facility] Repository (1 source) zolpidem; Translations: [Ambien] Drug Allergy [facility] Repository Medications Current Medications Medication Drug Class(es) Dates Sig (Normalized) Sig (Original) apixaban 5 mg oral tablet (20 sources) Factor Xa Inhibitor Start: 01-05-2024 take 1 tablet by mouth twice daily Apixaban (Eliquis) 5 mg tablet Active 5 MG PO Twice daily April 30, 2024 10:32am Start: 07-07-2023 End: 07-12-2023 take 2.5 mg by mouth every twelve hours in the morning 2.5 mg, Oral, EVERY 12 HOURS, First dose on Thu07/08/23 at 0900, Until Discontinued, Start in AM day after surgery, Indications: Venous Thromboembolism, Post-op/Post-Proc Start: 06-24-2023 End: 04-30-2024 take 1 tablet by mouth once Apixaban (Eliquis) 5 mg ta blet Discontinued 5 MG PO Once June 24, 2023 12:00am April 30, 2024 10:34am Start: 08-31-2017 End: 01-05-2024 Eliquis 5 mg oral tablet Ref ills(s) 0 Start Date: 02/11/23 Status: Ordered take 2 tablets by [facility] every twelve hours apixaban 2.5 MG tablet Take 2 tablets by mouth every 12 hours. Active apixaban 2.5 MG tablet Take by mouth every 12 hours. 0 Active Comment on above: Take 5 mg by mouth t wice daily. ascorbic acid 226 mg / beta carotene 24370 unt / cuprous oxide 0.8 mg / dl-alpha tocopheryl acetate 200 unt / zinc oxide 34.8 mg oral capsule (3 sources) Vitamin C Start: 10-28-2023 take 1 capsule by mouth in the morning vitamins A,C,A-qeed-tltudu (ICAPS AREDS) 4,296 mcg-226 mg-90 mg capsule Take 1 capsule by mouth in the morning and 1 capsule before bedtime. 10/28/2023 Active atenolol 50 mg oral tablet (20 sources) beta-Adrenergic Eli Start: 07-06-2024 atenoloL (TENORMIN) 50 mg tablet TAKE ONE AND ONE-HALF TABLETS IN THE MORNING 135 tablet 1 07/06/2024 Active Start: 06-22-2024 atenolol 50 mg Tab 50 mg = 1 tab(s), Refills(s) 0 Start Date: 06/22/24 Status: Ordered Start: 2023 End: 2023 take 75 mg by mouth once daily 75 mg, Oral, DAILY, Fir st dose on Thu07/08/23 at 0900, Until Discontinued Start: 06-24-2023 take 1 tablet by mirza th once daily Atenolol 50 mg tablet Active 50 MG PO Daily June 24, 2023 12:00am Start: 09-10-2022 End: 07-06-2024 take 1.5 tablets by mouth in the morning atenoloL (TENORMIN) 50 mg tablet Take 1.5 tablets (75 mg total) by mouth in the morning. 135 tablet 3 07/24/2023 07/06/2024 Discontinued Start: 08-31-2017 atenolol (TENO RMIN) 50 mg tablet 25 mg twice daily. 0 08/31/2017 Active take 1 tablet by mirza th once daily Atenolol 25 MG tablet Take 1 tablet by mouth daily. 0 Active take 1 tablet by mirza th once daily Atenolol 50 MG 1 1/2 TAB Orally Once a day Active Comment on above: 25 mg twice daily. baclofen 10 mg oral tablet (20 sources) gamma-Aminobutyric Acid-ergic Agonist Start: 06-24-2023 take 1 tablet by mouth once daily Baclofen 10 mg tablet Active 10 MG PO Daily June 24, 2023 12:00am Start: 05-27-2023 BACLOFEN 10 MG TABLET BACLOFEN 10 MG TABLET Start Date: 05/27/23 Status: Ordered take 1 tablet by mirza th three times daily as needed baclofen (LIORESAL) 20 mg tablet Take 1 tablet (20 mg total) by mouth 3 (three) times a day. PRN Active take 1 tablet by mirza th three times daily as needed baclofen 10 MG tablet Take 1 tablet by mouth 3 times daily. NEEDED Active benzonatate 200 mg oral capsule (4 [...] as needed. cycloSPORINE 0.5 mg/ml ophthalmic suspension (4 sources) Calcineurin Inhibitor Immunosuppressant Start: 10-28-2023 take 0.05 drop(s) into the eye(s) every twelve hours Cyclosporine (Restasis Multidose) 0.05 % drops Active 1 DROPS EYE-BOTH Every 12 hours October 27, 2023 11:00pm docusate sodium 100 mg oral capsule (8 [...] x 1 month, then 2x/week for maintainence, [facility]/pharmacy #[id number], 165, cm, 02/11/23 10:41:00 EDT, Height/Length Dosing, 77.5, kg, 02/11/23 10:41:00 EDT, Weight Dosing 02/11/2023 Active Start: 02-11-2023 Estrace 0.1 mg /g Cream See Instructions, 42.5 gm, Refill(s) 3, apply pea size amount to urethra/inner vagina 3x/week x 1 month, then 2x/week for maintainence, [facility]/pharmacy #[id number], 165, cm, 02/11/23 10:41:00 EDT, Height/Length Dosing, 77.5, kg, 02/11/23 10:41:00 EDT, Weight Dosing Start Date: 02/11/23 Status: Ordered flecainide acetate 50 mg oral tablet (20 sources) Antiarrhythmic Start: 07-15-2023 End: 08-06-2024 take 1 tablet by mouth in the morning, then take 1 tablet by mouth at bedtime flecainide (TAMBOCOR) 50 mg tablet Indications: Paroxysmal atrial fibrillation (CMS-HCC) Take 1 tablet (50 mg total) by mouth in the morning and 1 tablet (50 mg total) before bedtime. Do all this for 360 days. 180 tablet 3 08/12/2023 08/06/2024 Active Start: 07-15-2023 End: 08-14-2023 take 1 tablet by mouth twice daily Flecainide 50 MG tablet Take 1 tablet by mouth Twice daily. 07/15/2023 Active Start: 10-06-2017 flecainide (TA MBOCOR) 100 mg tablet Take 100 mg by mouth. 0 10/06/2017 Active Comment on above: Take 100 mg by mouth . hydroCHLOROthiazide 25 mg oral tablet (20 sources) Thiazide Diuretic Start: 2022 End: 2023 hydroCHLOROthiazide (HYDRODIURIL) 25 mg tablet take 1 tablet daily 90 tablet 3 08/13/2023 Active hydroCHLOROthiazide 25 mg / losartan potassium 100 [...] Antagonist Start: 2018 XIIDRA 5 % dpet Lisinopril (20 sources) Angiotensin Converting Enzyme Inhibitor Start: 2023 Lisinopril 20 mg tablet Active 0 .ROUTE .COMPLEX 90 March 21, 2024 4:38pm TAKE 1 TABLET DAILY Start: 02-22-2019 End: 03-21-2024 lisinopril 20 mg Tab Refills (s) 0 Start Date: 02/11/23 Status: Ordered take 1 tablet by mirza th once daily Lisinopril 5 MG tablet Take 1 tablet [...] Daily, # 30 tab(s), Refills(s) 11, Pharmacy: [facility]/pharmacy #[id number], 165, cm, 02/11/23 10:41:00 EDT, Height/Length Dosing, 77.5, kg, 02/11/23 10:41:00 EDT, Weight Dosing Start Date: 02/11/23 Status: Ordered Multiple Vitamin (multivitamin) capsule (6 sources) take 1 capsule by mouth once daily Multiple Vitamin (multivitamin) capsule Take 1 capsule by mouth daily. Active Aleve (13 sources) Nonsteroidal Anti-inflammatory Drug Start: 06-22-19 Aleve Refills(s) 0 Start Date: 06/22/24 Status: Ordered Start: 02-11-2023 take 1 mg by mouth e very twelve hours Aleve mg, Oral, q12hr, Refills(s) 0 Start Date: 02/11/23 Status: Ordered naproxen sodium (ALEVE) 220 mg tablet Take 1 tablet (220 mg total) by mouth as needed for pain. Active Neuveria Vitamin OTC (2 sources) Start: 06-22-2024 Neuveria Vitamin OTC Neuveria Vitamin OTC Start Date: 06/22/24 Status: Ordered nitrofurantoin, macrocrystals 25 mg / nitrofurantoin, monohydrate 75 mg oral capsule (4 sources) Nitrofuran Antibacterial Start: 06-23-2022 take 1 capsule by mouth every twelve hours Nitrofurantoin Monohyd Macro 100 MG 1 capsule with food Orally every 12 hrs for 7 days Jun, Active NON FORMULARY (10 sources) NON FORMULARY Me d Name:Neuveria vitamin 1 qd Active NON FORMULARY Me d Name:Neuveria vitamin 1 qd 0 Active NON-FORMULARY (6 sources) NON-FORMULARY Me d Name:Neuveria vitamin 1 qd Active omeprazole 40 mg delayed release oral capsule (20 sources) Proton Pump Inhibitor Start: 06-22-2024 omeprazole 40 mg Cap-DR 40 mg = 1 cap(s), Refills(s) 0 Start Date: 06/22/24 Status: Ordered Start: 04-30-2024 take 1 capsule by mo uth once daily Omeprazole 40 mg capsule,delayed release(DR/EC) Active 40 MG PO Daily April 30, 2024 10:33am Start: 12-22-2023 Omeprazole Act david 0 .ROUTE .COMPLEX 180 December 22, 2023 11:13am TAKE 2 CAPSULES DAILY Start: 06-24-2023 End: 12-22-2023 take 1 capsule by mouth once daily Omeprazole 40 mg capsule,delayed release(DR/EC) Discontinued 40 MG PO Daily June 24, 2023 12:00am December 22, 2023 10:13am Start: 02-11-2023 omeprazole 40 mg Cap-DR Refills(s) 0 Start Date: 02/11/23 Status: Ordered take 1 capsule by mo uth in the morning omeprazole (PriLOSEC) 20 mg capsule Take 1 capsule (20 mg total) by mouth in the morning. Active take 20 mg by mouth once daily in the morning OMEPRAZOLE PO Take 20 mg by mouth daily. am Active Omeprazole (PRIL OSEC) 40 mg capsule Take 20 mg by mouth twice daily. 0 Active take 1 capsule by [facility] once daily omeprazole [address] Take 1 capsule by mouth daily. 0 Active Omeprazole 40 mg TAKE 2 CAPSULES DAILY Active take 1 capsule by [facility] once daily Omeprazole 40 MG 1 capsule [...] a day for 90 days Jun, Active sulfamethoxazole 800 mg / trimethoprim 160 mg oral tablet (7 sources) Dihydrofolate Reductase Inhibitor Antibacterial, Sulfonamide Antimicrobial Start: 10-28-19 take 1 tablet by mouth every twenty-four hours Bactrim DS 800-160 MG 1 tablet Orally daily for 30 days Oct, Active Start: 08-11-2022 take 1 tablet by [facility] every twelve hours Bactrim DS 800-160 MG 1 tablet Orally Twice a day for 10 day(s) Oct, Active SUMAtriptan 25 mg oral tablet (20 sources) Serotonin-1b and Serotonin-1d Receptor Agonist Start: 06-22-2024 SUMAtriptan 25 mg Ta b 25 mg = 1 tab(s), Refills(s) 0 Start Date: 06/22/24 Status: Ordered Start: 05-23-2024 End: 05-23-2024 take 1 tablet by mouth once as needed for headache Sumatriptan Succinate 25 mg tablet Active 25 MG PO Once as needed for migraine headache May 23, 2024 1:02pm Start: 09-12-2016 SUMAtriptan (I MITREX) 25 mg tablet Take 25 mg by mouth as needed. 0 09/12/2016 Active Comment on above: Take 25 mg by mouth as needed. traZODone hydrochloride 50 mg oral tablet (4 sources) Serotonin Reuptake Inhibitor Start: 06-22-2024 traZODONE 50 mg Tab 50 mg = 1 tab(s), Refills(s) 0 Start Date: 06/22/24 Status: Ordered Start: 05-09-2024 End: 06-14-2024 take 1 tablet by mouth once daily at bedtime as needed Trazodone 50 mg tablet Active 50 MG PO Daily at bedtime as needed for insomnia June 14, 2024 12:44pm triamcinolone acetonide 1 mg/ml topical cream (2 sources) Corticosteroid Start: 10-30-2022 Triamcinolone Acetonide 0.1 % 1 application Externally Twice a day for 7 days Oct, Active trospium chloride 20 mg oral tablet (20 sources) Cholinergic Muscarinic Antagonist Start: 06-29-2023 take 1 tablet by mouth twice daily Trospium 20 mg tablet Active 20 MG PO Twice daily June 29, 2023 1:33pm Start: 06-24-2023 End: 06-29-2023 take 1 tablet by mouth once daily Trospium 20 mg tablet Discontinued 20 MG PO Daily June 24, 2023 12:00am June 29, 2023 1:33pm Start: 06-24-2023 End: 06-29-2023 Trospium Discontinued MG PO June 24, 2023 1:00am June 29, 2023 2:33pm Start: 05-27-2023 End: 06-29-2023 take 1 capsule by mouth at bedtime trospium 60 mg oral capsule, extended release 60 mg = 1 cap(s), Oral, Bedtime, # 90 tab(s), Refills(s) 3, Pharmacy: [facility], 165, cm, 05/27/23 8:54:00 EST, Height/Length Dosing, 77.5, kg, 05/27/23 8:54:00 EST, Weight Dosing Start Date: 05/27/23 Status: Ordered Trospium Chlorid e Active Vitamins A,C,V-Dhgy-Rmpxwz (Preservision Areds) 4,296 mcg-226 mg-90 mg capsule (4 sources) Start: 10-28-2023 take 1 capsule by mouth twice daily Vitamins A,C,Q-Jwlr-Poakof (Preservision Areds) 4,296 mcg-226 mg-90 mg capsule Active 1 CAP PO Twice daily October 27, 2023 11:00pm Start: 10-28-2023 take 1 capsule by [facility] twice daily Vitamins A,C,C-Yhsg-Rfczwt (Preservision Areds) 4,296 mcg-226 mg-90 mg capsule [...] Post-op/Post-Proc Start: 07-07-2023 take 2 tablets by [facility] every four hours as needed Acetaminophen 325 MG tablet Take 2 tablets by mouth every 4 hours as needed for Mild Pain. 50 tablet 1 07/07/2023 Active Start: 07-07-2023 take 1 dose by mouth every vince r 1,000 mg, Oral, ONCE DIRECTED, 1 dose, Starting on Thu07/07/23 at 1003, Until Thu07/07/23 at 1043, See admin instructions, Administer 1 hour preop., Pre-op/Pre-Proc aspirin 325 mg oral tablet (4 sources) Platelet Aggregation Inhibitor, Nonsteroidal Anti-inflammatory Drug End: 2023 take 1 tablet by mouth once daily Aspirin 325 MG tablet Take 1 tablet by mouth daily. 2023 Discontinued (Stop Taking at Discharge) azithromycin 250 mg oral tablet (7 sources) Macrolide Antimicrobial Start: 04-30-2024 End: 05-09-2024 Azithromycin 250 mg tablet Discontinued 0 PO .COMPLEX April 30, 2024 12:00am May 09, 2024 9:21am For 250 mg dose pack: take 500 mg today (day 1), then 250 mg for 4 days (days 2-5) PO Start: 03-30-2023 Azithromycin 2 50 MG as directed Orally 2 tabs po today, then 1 tab daily x 4 more days for Mar, Active Start: 07-17-2022 Azithromycin 2 50 MG as directed Orally 2 tabs po today, then 1 tab daily x 4 more days for 5 Jul, Active bisacodyl 10 mg rectal suppository (1 source) Stimulant Laxative Start: 07-07-2023 End: 2023 take 10 mg rectal route once daily as needed for constipation 10 mg, Rectal, DAILY NEEDED, Starting on Thu07/07/23 at 1637, Until Thu07/08/23 at 1920, constipation, Post-op/Post-Proc calcium chloride 0.0014 meq/ml / potassium chloride 0.004 meq/ml / sodium chloride 0.103 meq/ml / sodium lactate 0.028 meq/ml injectable solution (1 source) Start: 07-07-2023 End: 07-07-2023 Intravenous, at 75 mL/hr, CONTINUOUS, Starting on Thu07/07/23 at 1015, Until Thu07/07/23 at 1609, Pre-op/Pre-Proc ceFAZolin 2000 mg injection (1 source) Cephalosporin Antibacterial Start: 07-07-2023 End: 2023 take 2 g intravenously every eight hours 2 g, Intravenous, Administer over 30 Minutes, EVERY 8 HOURS NON-STANDARD, First dose on Thu07/07/23 at 2145, Until Discontinued, Post-op/Post-Proc cycloSPORINE Opth 0.05% Emul (2 sources) Start: 06-22-2024 cycloSPORINE Opth 0.05% Emul 1 drop(s), Refill(s) 0 Start Date: 06/22/24 Status: Ordered dexamethasone phosphate 10 mg/ml injectable solution (1 source) Corticosteroid Start: 2023 End: 2023 take 10 mg [...] Post-op/Post-Proc docusate sodium 50 mg / sennosides, mcfp 8.6 mg oral tablet (1 source) Start: [...] Post-op/Post-Proc ketorolac tromethamine 10 mg oral tablet (4 sources) Nonsteroidal Anti-inflammatory Drug, Cyclooxygenase Inhibitor Start: 06-24-2023 End: 06-29-2023 take 1 tablet by mouth once Ketorolac 10 mg tablet Discontinued 10 MG PO Once June 24, 2023 12:00am June 29, 2023 1:31pm methylPREDNISolone 4 mg oral tablet (4 sources) Corticosteroid Start: 06-24-2023 End: 06-29-2023 Methylprednisolone 4 mg tablets,dose pack Discontinued 4 MG PO .COMPLEX June 24, 2023 12:00am June 29, 2023 1:31pm 4 mg orally; Omeprazole 40 mg capsule,delayed release(DR/EC) (2 sources) Start: 12-22-2023 End: 04-30-2024 Omeprazole 40 mg capsule,delayed release(DR/EC) Discontinued 0 .ROUTE .COMPLEX 180 December 22, 2023 10:13am April 30, 2024 10:34am TAKE 2 CAPSULES DAILY 2 ml ondansetron 2 mg/ml injection (1 source) Serotonin-3 Receptor Antagonist Start: 07-07-2023 End: 2023 take 4 mg intravenously every four hours as needed 4 mg, Intravenous, EVERY 4 HOURS NEEDED, Starting on Thu07/07/23 at 1637, Until Thu07/08/23 at 1920, Nausea / Vomiting, Post-op/Post-Proc 12 hr orphenadrine citrate 100 mg extended release oral tablet (4 sources) Muscle Relaxant Start: 06-24-2023 End: 06-29-2023 Orphenadrine Citrate 100 mg tablet extended release Discontinued MG PO June 24, 2023 12:00am June 29, 2023 1:32pm Start: 06-24-2023 End: 06-29-2023 Orphenadrine Citrate Discont inued MG PO June 24, 2023 1:00am June [...] MG Pack Take by mouth. 0 Active Potassium Chloride (20 sources) Start: 06-22-2024 Potassium Chlo ride (Grj-Ifty-Bph 10) 10 mEq oral tablet, extended release 10 mEq = 1 tab(s), Refills(s) 0 Start Date: 06/22/24 Status: Ordered Start: 10-26-2023 End: 11-26-2023 potassium chloride (K-TAB,KL OR-CON) 10 MEQ CR tablet Take 1 tablet (10 mEq total) by mouth in the morning. 90 tablet 3 11/26/2023 Active Start: 03-31-2022 End: 10-19-2023 10 mEq, Oral, DAILY, First d ose on Thu07/08/23 at 0900, Until Discontinued take 1 tablet by mirza th every twenty-four hours Klor-Con M20 20 MEQ 1 tablet with food Orally Once a day Active Comment on above: Take 10 mEq by mouth once daily. predniSONE 20 mg oral tablet (2 sources) Start: End: take 1 tablet by mouth once daily Prednisone 20 mg tablet Discontinued 20 MG PO Daily 3 April 30, 2024 12:00am May 09, 2024 9:21am ROPivacaine (NAROPIN) 1 % 400 mg, EPINEPHrine PF (ADRENALIN) 1 MG/ML 1 mg, Ketorolac (TORADOL) 30 MG/ML 30 mg, cloNIDine 100 MCG/ML 153 mcg, Sodium chloride 0.9% 45 mL in viaflex container 1 Each 88.53 mL (total volume) (1 source) Start: End: take 1 dose intravenously once Intra-articular, INTRA-OP ONCE, 1 dose, Starting on Thu07/07/23 at 1433, Until Thu07/07/23 at 1433, 88.53 mL, To be mixed by pharmacy NOT for IV use, Intra-op/Intra-Proc 1000 ml sodium chloride 9 mg/ml injection (1 source) Start: End: Intravenous, at 75 mL/hr, CONTINUOUS, Starting on Thu07/07/23 at 1645, Until Thu07/08/23 at 1920, Convert IV to PRN adapter post op day 1 if adequate oral intake, Post-op/Post-Proc sodium phosphate, dibasic 35.5 mg/ml / sodium phosphate, monobasic 96.4 mg/ml enema (1 source) Start: 024 End: 024 1 enema, Rectal, DAILY NEEDED, Starting on Thu07/07/23 at 1637, Until Thu07/08/23 at 1920, Refractory Constipation, use per package instructions, Post-op/Post-Proc temazepam 30 mg oral capsule (20 sources) Benzodiazepine Start: 019 End: take 1 capsule by mouth once daily at bedtime Temazepam 30 mg capsule Discontinued 30 MG PO Daily at bedtime February 01, 2024 10:46am February 15, 2024 8:27am take 2 capsules by m outh at [...] to other specified organisms Episodic Allergic reactions (3 sources) Eczema 02-05-2023 Episodic Anal and rectal conditions (3 sources) Disorder of rectum 02-05-2023 Episodic Anxiety disorders (3 sources) Acute stress disorder; Translations: [Acute stress reaction] 02-08-2024 Chronic Cancer of breast (10 sources) 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; Translations: [Carcinoma in situ of breast] Onset: 10-30-2015 12-03-2015 Chronic Cancer of breast (20 sources) History of malignant neoplasm of breast; Translations: [Personal history of malignant neoplasm of breast] Onset: 09-23-2017 09-23-2017 Episodic Cardiac dysrhythmias (20 sources) Chronic atrial fibrillation; Translations: [Chronic atrial fibrillation, unspecified] Onset: 12-11-2016 Resolved: 12-30-2019 03-24-2018 Chronic E Codes: Natural/environment (1 source) [...] 04-29-2022 Chronic Genitourinary symptoms and ill-defined conditions (5 sources) Mixed incontinence; Translations: [Incontinence] Onset: 02-11-2023 [...] senior care (current) drug therapy; Translations: [OTH RETIREMENT CURRENT DRUG THERAPY] Onset: 06-11-2022 Episodic Other aftercare (2 sources) Long-term current use of anticoagulant; Translations: [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] Onset: [...] Onset: 06-11-2022 Episodic Other nervous system disorders (5 sources) Hip pain; Translations: [Other acute postprocedural [...] upper respiratory infection, unspecified] Onset: 05-10-2015 Episodic Otitis media and related conditions (6 sources) Acute bilateral otitis media ; Translations: [Otitis media, unspecified, bilateral] 04-30-2024 Episodic Prolapse of female genital organs (1 [...] UTERUS] Onset: 06-11-2022 Episodic Residual codes; unclassified (15 sources) Insomnia; Translations: [Insomnia, unspecified] 08-18-2023 Episodic Residual codes; unclassified (2 sources) Insomnia, unspecified; Translations: [Insomnia, unspecified] 05-09-2024 Episodic Residual codes; unclassified (1 source) Family history of breast cancer; Translations: [Family history of malignant neoplasm of breast] Episodic Residual codes; unclassified (1 source) Family history of malignant neoplasm of gastrointestinal tract; Translations: [Family history of malignant neoplasm of digestive organs] Episodic Retinal detachments; defects; vascular occlusion; and retinopathy (3 sources) Degenerative disorder of macula ; Translations: [Unspecified macular degeneration] 10-28-2023 Chronic Screening and history of mental health and substance abuse codes (6 sources) Personal history of nicotine dependence; Translations: [...] W/AND (SUSP) EXPOS COVID-19] Onset: 06-11-2022 Unclassified (3 sources) Drug therapy finding 02-11-2023 Unclassified (1 source) Irregular Heart Rate Onset: 07-15-2023 Unclassified (2 sources) MRI Results; Translations: [MRI Results] Onset: 06-18-2023 Urinary tract infections (19 sources) Urinary tract infection, site not specified; Translations: [Acute urinary tract infection] Onset: 06-11-2022 Episodic Viral infection (12 sources) Disease caused by 2019-nCoV; Translations: [COVID-19] Past or Other Problems Problem Classification Problem Date Documented Date Episodic/Chronic Cardiac dysrhythmias (10 sources) Palpitations; Translations: [Palpitations] Onset: 06-30-2018 08-16-2021 Episodic Complication of device; implant or graft (6 sources) Joint pain; Translations: [Pain due to internal orthopedic prosthetic devices, implants and grafts, initial encounter] Onset: 06-01-2023 05-14-2023 Episodic Coronary atherosclerosis and other heart disease (13 sources) Atherosclerotic heart disease of algaaciq coronary artery without angina pectoris; Translations: [Coronary arteriosclerosis] Onset: 07-29-2021 Resolved: 08-16-2021 06-02-2023 Chronic Gastroduodenal ulcer (except hemorrhage) (2 sources) Personal history of peptic ulcer disease; Translations: [Acute gastric ulcer without hemorrhage, without perforation AND without obstruction] Onset: 05-11-2017 Episodic Mood disorders (10 sources) Mood disorders Onset: 04-24-2020 04-24-2020 Other [...] Onset: 06-17-2018 Episodic Other lower respiratory disease (20 sources) Dyspnea; Translations: [Shortness of breath] Onset: [...] Name Value Interpretation Reference Range Facility C Urineon 06-24-2024 Bacteria identified Cx Nom (U) Microbiology PROCEDURE: Urine Culture [R1] SOURCE: U Random BODY SITE: COLLECTED DATE/TIME: 06/22/2024 13:48 EST RECEIVED DATE/TIME: 06/22/2024 18:48 EST START DATE/TIME: 06/22/2024 18:48 EST FREE TEXT SOURCE: Maria E Omsan PA-C, PA-C, Maria E FINAL REPORTS Final Report [] Verified Date/Time: 06/24/2024 10:59 EST No growth at 2 days. Performing Locations R1: This test was performed at: [facility], [address] [place] [address], [id number]- , [place], Normal [facility] Comment on above: Performed By: #### 2 [id number] #### [facility] [address] [place] [address] Ambulatory Visit Summaryon 0 06-22-2024 Ambulatory Visit Summary Ambulatory Visit Summary BETTIE BURNS :1945 Visit Date:06/22/2024 Ambulatory Visit Instructions Your Diagnosis Mixed incontinence Frequent UTI Microscopic hematuria Anticoagulated History of breast cancer Former smoker Your Care Team Attending Physician - Jacqui MOTT, Maria E Primary Care Physician - ELLIOT STARKS MD This Is Your Medications List Misc Prescription (BACLOFEN 10 MG TABLET) Non-Formulary Medication (Neuveria Vitamin OTC) apixaban (Eliquis 5 mg oral tablet) atenolol (atenolol 50 mg Tab) cycloSPORINE ophthalmic (cycloSPORINE Opth 0.05% Emul) flecainide (flecainide 50 mg Tab) hydrochlorothiazide (hydrochlorothiazide 25 mg Tab) lisinopril (lisinopril 20 mg Tab) naproxen (Aleve) omeprazole (omeprazole 40 mg Cap-DR) potassium chloride (Potassium Chloride (Yzg-Tjkw-Ovu 10) 10 mEq oral tablet, extended release) sumatriptan (SUMAtriptan 25 mg Tab) trazodone (traZODONE 50 mg Tab) trospium (trospium 60 mg oral capsule, extended release) Procedures Performed Appendectomy, Cardiac ablation system, Cataracts, Cholecystectomy, Hip replacement, Lumpectomy of left breast, Rotator cuff, ROSA - Total abdominal hysterectomy. Discharge Vitals Heart Rate (Peripheral) 56 Respiratory Rate 18 Blood Pressure 125/55 Height 165 cm Height 65 in Weight 80.7 kg Weight 177.913 lb BMI 29.64 What to do next Scheduled Follow-Up Appointments Thursday 10:30 AM EDT Where: [facility] Thursday 8:15 AM EDT Where: [facility] Medications What How Much When Why Instructions Unchanged apixaban (Eliquis 5 mg oral tablet) Unchanged atenolol (atenolol 50 mg Tab) 1 Tablets Unchanged cycloSPORINE ophthalmic (cycloSPORINE Opth 0.05% Emul) 1 Drops Unchanged flecainide (flecainide 50 mg Tab) 1 Tablets Unchanged hydrochlorothiazide (hydrochlorothiazide 25 mg Tab) By Mouth Every day Unchanged lisinopril (lisinopril 20 mg Tab) Unchanged Misc Prescription (BACLOFEN 10 MG TABLET) 0 Unchanged naproxen (Aleve) Unchanged Non-Formulary Medication (Neuveria Vitamin OTC) Unchanged omeprazole (omeprazole 40 mg Cap-DR) 1 Capsules Unchanged potassium chloride (Potassium Chloride (Ymz-Lmcf-Qhh 10) 10 mEq oral tablet, extended release) 1 Tablets Unchanged sumatriptan (SUMAtriptan 25 mg Tab) 1 Tablets Unchanged trazodone (traZODONE 50 mg Tab) 1 Tablets Unchanged trospium (trospium 60 mg oral capsule, extended release) 1 Capsules By Mouth At bedtime Mixed incontinence Allergies Ambien Levaquin Morphine Sulfate Ultram baclofen codeine penicillin Problems Ongoing - Any problem that you are currently receiving treatment for. Anticoagulated Chronic atrial fibrillation Eczema Former smoker Frequent UTI History of breast cancer History of malignant neoplasm of breast Hypertensive disorder Microscopic hematuria Mixed incontinence Rectocele Patient Survey You may receive a survey via text or e-mail asking about your office visit. Please share your experience with us by completing your survey. We appreciate your feedback and thank you for choosing us for your care. Normal [facility] URINALYSISOrdered By: Tien Lyon on 06-22-2024 Bacteria Auto Ql (U) 1+ /HPF Invalid Interpretation Code Trace/HPF [facility] UA Auto SS Bilirubin Ql (U) Negative Normal Negativemg/ d L [facility] UA Auto SS Clarity (U) Clear (06/22/24 1:48 PM) Normal Clear [facility] UA Auto SS Color (U) Light-Yellow 1 (06/22/24 1:48 PM) Normal Yellow [facility] UA Auto SS Comment on above: Interpretive Data: M icroscopic readings are only performed on those samples that meet specific criteria set forth by [facility]. Epithelial cells.squamous Auto (Urine sed) [#/Area] 0-2 graded/HPF Invalid Interpretation Code [facility] UA Auto SS Glucose Ql (U) Negative Normal Negativemg/d L [facility] UA Auto SS Hemoglobin Auto test strip (U) [Mass/Vol] 2+ *ABN* (06/22/24 1:48 PM) Invalid Interpretation Code Negative [facility] UA Auto SS Ketones Auto test strip Ql (U) Negative Normal Negativemg/d L [facility] UA Auto SS Leukocyte esterase Auto test strip Ql (U) 250 Felipe/uL *ABN* (06/22/24 1:48 PM) Invalid Interpretation Code Negative [facility] UA Auto SS Mucus Auto Ql (U) Negative (06/22/24 1:48 PM) Normal Negative [facility] UA Auto SS Nitrite Auto test strip Ql (U) Negative Normal Negativemg/d L [facility] UA Auto SS pH (U) 6.0 *NA* (06/22/24 1:48 PM) Invalid Interpretation Code 5.0 - 9.0 [facility] UA Auto SS Protein Ql (U) Negative Normal Negativemg/d L [facility] UA Auto SS RBC Ql (U) 4-20 graded/HPF Invalid Interpretation Code 0-3graded/HP F [facility] UA Auto SS Specific gravity (U) [Rel density] 1.013 *NA* (06/22/24 1:48 PM) Invalid Interpretation Code 1.005 - 1.030 [facility] UA Auto SS Urobilinogen (U) [Mass/Vol] Negative Normal Negativemg/d L [facility] UA Auto SS WBC Auto (Urine sed) [#/Area] 31-75 *ABN* (06/22/24 1:48 PM) Invalid Interpretation Code 0-5 [facility] UA Auto SS URINALYSISOrdered By: Catina Corona on 06-22-2024 UA Spec Desc Random Urine (06/22/24 1:48 PM) Normal [facility] UA Auto SS Urinalysis with Microon 06-04 Bacteria Auto Ql (U) 1+ /HPF Abnormal Trace [facility] Comment on above: Performed By: #### 4 [id number] #### [facility] [address] [place] [address] Bilirubin Ql (U) Negative Normal Negative [facility] Comment on above: Performed By: #### 4 [id number] #### [facility] [address] [place] [address] Clarity (U) Clear Normal Clear [facility] Comment on above: Performed By: #### 4 [id number] #### [facility] [address] [place] [address] Color (U) Light-Yellow Normal Yellow [facility] Comment on above: Result Comment: Micr oscopic readings are only performed on those samples that meet specific criteria set forth by [facility]. Performed By: #### 4 [id number] #### [facility] [address] [place] [address] Epithelial cells.squamous Auto (Urine sed) [#/Area] 0-2 Invalid Interpretation Code [facility] Comment on above: Performed By: #### 4 [id number] #### [facility] [address] [place] [address] Glucose Ql (U) Negative Normal Negative [facility] Comment on above: Performed By: #### 4 [id number] #### [facility] [address] [place] [address] Hemoglobin Auto test strip (U) [Mass/Vol] 2+ Abnormal Negative [facility] Comment on above: Performed By: #### 4 [id number] #### [facility] [address] [place] [address] Ketones Auto test strip Ql (U) Negative Normal Negative [facility] Comment on above: Performed By: #### 4 [id number] #### [facility] [address] [place] [address] Leukocyte esterase Auto test strip Ql (U) 250 Felipe/uL Abnormal Negative [facility] Comment on above: Performed By: #### 4 [id number] #### [facility] [address] [place] [address] Mucus Auto Ql (U) Negative Normal Negative [facility] Comment on above: Performed By: #### 4 [id number] #### [facility] [address] [place] [address] Nitrite Auto test strip Ql (U) Negative Normal Negative [facility] Comment on above: Performed By: #### 4 [id number] #### [facility] [address] [place] [address] pH (U) 6.0 [pH] Invalid Interpretation Code 5.0-9.0 [facility] Comment on above: Performed By: #### 4 [id number] #### [facility] [address] [place] [address] Protein Ql (U) Negative Normal Negative [facility] Comment on above: Performed By: #### 4 [id number] #### [facility] [address] [place] [address] RBC Ql (U) 4-20 Abnormal 0-3 [facility] Comment on above: Performed By: #### 4 [id number] #### [facility] [address] [place] [address] Specific gravity (U) [Rel density] 1.013 Invalid Interpretation Code 1.005-1.030 [facility] Comment on above: Performed By: #### 4 [id number] #### [facility] [address] [place] [address] Urobilinogen (U) [Mass/Vol] Negative Normal Negative [facility] Comment on above: Performed By: #### 4 [id number] #### [facility] [address] [place] [address] WBC Auto (Urine sed) [#/Area] 31-75 Abnormal 0-5 [facility] Comment on above: Performed By: #### 4 [id number] #### [facility] [address] [place] [address] Type of Urine collection method Random Urine Normal [facility] Comment on above: Performed By: #### 4 [id number] #### [facility] [address] [place] [address] Urology Office/Clinic Noteon 06-22-2024 Urology Office/Clinic Note Urology Office/Clinic Note Chief Complaint urinary incontinence HPI Staff 78yr old female pt here for urinary incontinence. started last week, now she has no control Previous Dx: frequent uti, microscopic hematuria, mixed incontinence, anticoagulated, history of breast cancer, former smoker *Trospium 20 mg BID PVR - 45mL Dysuria: denies Incomplete bladder emptying: denies Hematuria: denies visible blood Frequency: 2-3x per hour Urgency: yes Nocturia: at least 4x per night Stream: good stream Leaking: yes - incontinence Post void dripping: denies Wearing pads/ Depends: wears a pad, uses at least 5-6 pads per day if not more Urge incontinence: yes Stress incontinence: yes Incontinence without Sensory Awareness: denies Abdominal pain: occasionally has spasm Flank pain: denies History of Present Illness I have reviewed and verified the staff HPI to be accurate for this encounter. Review of Systems PHQ Score Initial Depression Screen Score: 0 SCORE no fever, chills, malaise, myalgia. no abdominal pain, nausea, vomiting. Physical Exam Vitals & Measurements HR: 56(Peripheral) RR: 18 BP: 125/55 HT: 65 in HT: 165 cm WT: 80.7 kg WT: 177.913 lb BMI: 29.64 General: Well developed, well nourished, in no acute distress. Assessment/Plan [facility] patient, last seen in-office 05/27/23 78 y/o female presents today for worsening urge incontinence 1. Mixed incontinence (N39.46: Mixed incontinence) UUI>JESUS BBSQ 27 (24) PVR 45 mL UA today shows small leuks, moderate blood, neg nitrites Patient currently taking Trospium 20 mg BID. States her urinary sxs were controlled with medication until about a week ago. Since last week, her urgency and frequency of incontinence episodes worsened. At baseline, she wears 1 pad/day but states this last week she has been using 6-7 pads/day. She also admits to intermittent dysuria and suprapubic pain. She mostly drinks water, 1 cup of coffee a day. Denies constipation, as long as she takes stool softeners. Denies bothersome JESUS sxs. She states she went to her PCP yesterday for possible UTI but her urine was not sent for culture. Reviewed UA today with pt, looks like it may be suspicious for infection. Advised patient that acute UTI could worsen UUI sxs. Will send urine for culture and treat appropriately with antibiotics once culture results, if infection present. Pt agreeable to this. Pt to continue Trospium 20 mg BID at this time. Denies bothersome SEs to med. She has previously tried Myrbetriq and had adverse effects including bilateral kidney pain, cold-like sxs. Gemtesa was too expensive, so switched to Trospium 20mg BID. Tried switching to Trospium 60 mg ER at last visit, but insurance denied. She was ultimately switched back to Trospium 20 mg BID. Patient states that regardless if UTI is present or not, she would like to discuss other treatment options for UUI. Discussed with patient that medication options are limited at this point and next steps would be Botox or SNM. Discussed both Botox and SNM at length with patient including risks/benefits and details of procedures. Patient states she is interested in Botox at this time and would like to proceed with cystoscopy to determine candidacy for Botox. -Send urine for culture, call pt w/ results -Will wait for urine culture to finalize prior to treatment with antibiotics. Pt agreeable to this. -Continue Trospium 20 mg BID -Schedule cystoscopy to evaluate candidacy for Botox. The risks and benefits for cystoscopy have been discussed. The risks include bleeding, infection, and irritation of the bladder and urinary channel, among others. The patient, after being informed of procedural details and after questions have been answered, wishes to proceed. Full informed consent has been obtained. Will order Local anesthesia. -Bowel regimen, avoid bladder irritants -Follow-up pending completion of cystoscopy w/ KML Ordered: [id number] Measure Post Void residual urine and/or bladder capacity by US- non-imaging Body Mass Index (BMI) documented 3008F Current tobacco non-user 1036F Depression Screening Negative 3352F Influenza immunization status assessed 1030F Medication list documented in medical record 1159F Most recent diastolic blood pressure <80 mm Hg 3078F Patient screen for fall risk: no falls in last year or 1 fall with no injury in last year 1101F Review of all meds by a prescribing practitioner or clinical pharmacist documented in EHR 1160F Systolic BP <130 mm Hg (Most Recent) 3074F Urinalysis with Micro Urine Culture Urnls Dip Stick Auto w/o Microscopy POC 98525 2. Frequent UTI (N39.0: Urinary tract infection, site not specified) CT AP w/ Con 03/10/20 - a stone in a vein adjacent to the Rt ureter rather than a ureteral stone, may represent a phlebolith rather than a renal stone. C&S 04/14/22 >100k E Coli C&S 06/09/22 pansensitive >100k E Coli C&S 10/27/22 pansensitive >100k E Coli No documented UTIs for (more content not included)... 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 Matt Adams RN Allergies As of Date: 09/17/2023 Noted Allergy Reaction BACLOFEN 03/19/2017 16 - Unknown CODEINE 03/19/2017 16 - Unknown HYDROCODONE-ACETAMINOP HEN 03/19/2017 16 - Unknown LEVOFLOXACIN 03/19/2017 16 - Unknown MORPHINE 12/03/2015 4 - Hives OXYCODONE 12/03/2015 4 - Hives PENICILLINS 12/03/2015 4 - Hives Date Reviewed: 03/16/2019 Reviewed by: Divine Self (Karissa), KARISSA - Fully Assessed Reason for Visit: Yearly Exam With Mammogram [188] Primary Visit Diagnosis:Encounter for screening mammogram for malignant neoplasm of breast [Z12.31] Order(s):[facility] SCREENING W YAW [[id number]] Order #: [id number] FUTURE Prescriptions as of 09/17/2023 - lisinopril (ZESTRIL, PRINIVIL) 20 mg tablet - XIIDRA 5 % dpet - cyclobenzaprine (FLEXERIL) 10 mg tablet Take 10 mg by mouth twice daily as needed. - temazepam (RESTORIL) 30 mg cap - losartan-hydrochloroth iazide (HYZAAR) 100-25 mg per tablet - meperidine [...] Status:Closed by ANDREW CHOI on 09/17/23 Normal [facility] [employer] SMEARon 08-22-2023 ACID FAST CULTURE Negative Normal [facility] Comment on above: Result Comment: No a rosy fast bacilli isolated after 6 weeks. PERFORMED AT [facility] Performed By: #### U MAC, UMIC #### Testing performed at [place] [id number] *RFLX-FUNGUSon 08-06-2023 RESULT 1 Comment Normal [facility] Comment on above: Result Comment: No y east or mold isolated after 4 weeks. PERFORMED AT [facility] Performed By: #### U MAC, UMIC #### Testing performed at [address] [address] FUNGUS CULTUREon 08-06-2023 FUNGUS CULTURE Final report Normal [facility] Comment on above: Result Comment: PERF ORMED AT [facility] Performed By: #### U MAC, UMIC #### Testing performed at [address] [address] CBC AND AUTO DIFFon 07-15-19 ABSOLUTE BASOPHIL 0.1 X10E9/L Normal 0.0-0.2 [facility] Comment on above: Performed By: #### C BCA, 05020-4, PINR, 68941-7, CMP, 11889-4, 61873-1, THYR, 68578-4 #### [facility] ([id number]) [address] [place] [address] ABSOLUTE NEUTROPHIL 2.8 X10E9/L Normal 1.5-6.6 [facility] Comment on above: Performed By: #### C BCA, 28163-1, PINR, 03223-2, CMP, 17499-3, 91182-6, THYR, 36416-2 #### [facility] ([id number]) [address] [place] [address] Basophils/100 WBC (Bld) 1.3 % Normal [facility] Comment on above: Performed By: #### C BCA, 27626-8, PINR, 47161-1, CMP, 75372-4, 36994-2, THYR, 42797-4 #### [facility] ([id number]) [address] [place] [address] Eosinophils (Bld) [#/Vol] 0.7 10*3/uL High 0.0-0.4 [facility] Comment on above: Performed By: #### C BCA, 86853-2, PINR, 28449-7, CMP, 49975-2, 57666-1, THYR, 20564-0 #### [facility] ([id number]) [address] [place] [address] Eosinophils/100 WBC (Bld) 11.9 % Normal [facility] Comment on above: Performed By: #### C BCA, 69046-6, PINR, 99048-5, CMP, 00282-5, 31969-5, THYR, 85060-8 #### [facility] ([id number]) [address] [place] [address] Erythrocyte distribution width (RBC) [Ratio] 13.5 % Normal 11.5-15.0 [facility] Comment on above: Performed By: #### C BCA, 04863-8, PINR, 90237-5, CMP, 88574-7, 82384-9, THYR, 32029-3 #### [facility] ([id number]) [address] [place] [address] Hematocrit (Bld) [Volume fraction] 38.5 % Normal 35-47 [facility] Comment on above: Performed By: #### C BCA, 64570-8, PINR, 23496-5, CMP, 34787-4, 15948-9, THYR, 94694-3 #### [facility] ([id number]) [address] [place] [address] Hemoglobin (Bld) [Mass/Vol] 13.3 g/dL Normal 11.7-15.5 [facility] Comment on above: Performed By: #### C BCA, 99682-6, PINR, 62652-6, CMP, 38274-5, 14910-3, THYR, 95877-3 #### [facility] ([id number]) [address] [place] [address] Lymphocytes (Bld) [#/Vol] 1.8 10*3/uL Normal 1.0-3.5 [facility] Comment on above: Performed By: #### C BCA, 43580-5, PINR, 28084-2, CMP, 23778-0, 80253-3, THYR, 89378-3 #### [facility] ([id number]) [address] [place] [address] Lymphocytes/100 WBC (Bld) 29.4 % Normal [facility] [facility] Comment on above: Performed By: #### C BCA, 01610-5, PINR, 48069-6, CMP, 77550-9, 53739-4, THYR, 85489-0 #### [facility] ([id number]) [address] [place] [address] 24952 MCH (RBC) [Entitic mass] 32.8 pg Normal 27-34 [facility] Comment on above: Performed By: #### C BCA, 11048-0, PINR, 28454-7, CMP, 16186-3, 50889-4, THYR, 01139-2 #### [facility] ([id number]) [address] [place] [address] 68731 MCHC (RBC) [Mass/Vol] 34.4 g/dL Normal 32-36 [facility] Comment on above: Performed By: #### C BCA, 54801-4, PINR, 45274-2, CMP, 22370-4, 91780-9, THYR, 23552-2 #### [facility] ([id number]) [address] [place] [address] 77677 MCV (RBC) [Entitic vol] 95 fL Normal 80-100 [facility] Comment on above: Performed By: #### C BCA, 18923-2, PINR, 87163-2, CMP, 14269-1, 67407-6, THYR, 83408-1 #### [facility] ([id number]) [address] [place] [address] 21245 Monocytes (Bld) [#/Vol] 0.8 10*3/uL Normal 0-0.9 [facility] Comment on above: Performed By: #### C BCA, 18880-3, PINR, 53119-6, CMP, 30306-9, 61150-2, THYR, 21905-9 #### [facility] ([id number]) [address] [place] [address] 37534 Monocytes/100 WBC (Bld) 13.2 % Normal [facility] Comment on above: Performed By: #### C BCA, 30131-1, PINR, 98232-5, CMP, 70778-5, 47805-5, THYR, 71403-6 #### [facility] ([id number]) [address] [place] [address] 54034 Neutrophils/100 WBC (Bld) 44.2 % Normal [facility] Comment on above: Performed By: #### C BCA, 41041-7, PINR, 46420-4, CMP, 56271-6, 27972-5, THYR, 89218-9 #### [facility] ([id number]) [address] [place] [address] 89427 Platelet mean volume (Bld) [Entitic vol] 6.9 fL Low 7-12 [facility] Comment on above: Performed By: #### C BCA, 53460-5, PINR, 48886-7, CMP, 86363-4, 46209-6, THYR, 26252-2 #### [facility] ([id number]) [address] [place] [address] 03424 Platelets (Bld) [#/Vol] 340 10*3/uL Normal 150-450 [facility] Comment on above: Performed By: #### C BCA, 84890-9, PINR, 95451-7, CMP, 43217-4, 60094-8, THYR, 99037-1 #### [facility] ([id number]) [address] [place] [address] 15415 RBC COUNT 4.05 X10E12/L Normal 3.80-5.20 [facility] Comment on above: Performed By: #### C BCA, 92231-8, PINR, 05333-8, CMP, 89177-7, 28105-8, THYR, 09470-3 #### [facility] ([id number]) [address] [place] [address] 95417 WBC (Bld) [#/Vol] 6.2 10*3/uL Normal 4.0-11.0 [facility] Comment on above: Performed By: #### C BCA, 51156-9, PINR, 28824-8, CMP, 76734-8, 58438-4, THYR, 69140-5 #### [facility] ([id number]) [address] [place] [address] 26853 COMPREHENSIVE METABOLIC PANE Roland 07-15-2023 Albumin [Mass/Vol] 3.5 g/dL Normal 3.2-5.3 [facility] Comment on above: Performed By: #### C BCA, 92587-2, PINR, 19465-5, CMP, 23955-9, 72950-1, THYR, 45600-7 #### [facility] ([id number]) [address] [place] [address] 92951 ALP [Catalytic activity/Vol] 52 U/L Normal 39-130 [facility] Comment on above: Performed By: #### C BCA, 04336-6, PINR, 93758-0, CMP, 45643-0, 10276-7, THYR, 72868-2 #### [facility] ([id number]) [address] [place] [address] 32334 ALT [Catalytic activity/Vol] 13 U/L Normal 0-31 [facility] Comment on above: Performed By: #### C BCA, 31465-3, PINR, 63501-9, CMP, 64430-6, 08465-1, THYR, 96118-1 #### [facility] ([id number]) [address] [place] [address] 41719 Anion gap [Moles/Vol] 10 mmol/L Normal 5-15 [facility] Comment on above: Performed By: #### C BCA, 70411-0, PINR, 29029-0, CMP, 76318-5, 90814-3, THYR, 45145-1 #### [facility] ([id number]) [address] [place] [address] 03119 AST [Catalytic activity/Vol] 24 U/L Normal 0-41 [facility] Comment on above: Performed By: #### C BCA, 96393-9, PINR, 08705-5, CMP, 51162-5, 24158-5, THYR, 76147-5 #### [facility] ([id number]) [address] [place] [address] 43106 Bilirubin [Mass/Vol] 0.7 mg/dL Normal 0.3-1.2 [facility] Comment on above: Performed By: #### C BCA, 73256-2, PINR, 81206-5, CMP, 87181-8, 76496-7, THYR, 14054-5 #### [facility] ([id number]) [address] [place] [address] 91720 Calcium [Mass/Vol] 9.4 mg/dL Normal 8.5-10.5 [facility] Comment on above: Performed By: #### C BCA, 64549-8, PINR, 54017-2, CMP, 75284-9, 21820-8, THYR, 75598-3 #### [facility] ([id number]) [address] [place] [address] 08591 Chloride [Moles/Vol] 102 mmol/L Normal 98-109 [facility] Comment on above: Performed By: #### C BCA, 53347-9, PINR, 67947-1, CMP, 91115-1, 71439-2, THYR, 33294-2 #### [facility] ([id number]) [address] [place] [address] 11320 CO2 [Moles/Vol] 27 mmol/L Normal 22-32 [facility] Comment on above: Performed By: #### C BCA, 94186-7, PINR, 10868-0, CMP, 46075-3, 32581-0, THYR, 34677-9 #### [facility] ([id number]) [address] [place] [address] 70083 Creatinine [Mass/Vol] 1.21 mg/dL High 0.40-1.00 [facility] Comment on above: Result Comment: METH OD TRACEABLE TO IDMS STANDARD Performed By: #### C BCA, 97433-2, PINR, 08402-2, CMP, 46365-0, 71618-1, THYR, 45444-3 #### [facility] ([id number]) [address] [place] [address] 71604 GFR/1.73 sq M.predicted among non-blacks MDRD (S/P/Bld) [Vol rate/Area] 46 mL/min/{1.73_m2} Low >59 [facility] Comment on above: Result Comment: Reported eGFR is based on the CKD-EPI 2020 equation that does not use a race coefficient. Performed By: #### C BCA, 52011-3, PINR, 98672-5, CMP, 41487-2, 30201-1, THYR, 58432-7 #### [facility] ([id number]) [address] [place] [address] 81670 Glucose [Mass/Vol] 120 mg/dL High 65-99 [facility] Comment on above: Performed By: #### C BCA, 03152-7, PINR, 00213-8, CMP, 24968-9, 19899-7, THYR, 54183-6 #### [facility] ([id number]) [address] [place] [address] 52816 Potassium [Moles/Vol] 4.0 mmol/L Normal 3.5-5.0 [facility] Comment on above: Performed By: #### C BCA, 89851-8, PINR, 01550-2, CMP, 73308-9, 40591-5, THYR, 78883-5 #### [facility] ([id number]) [address] [place] [address] 13431 Protein [Mass/Vol] 6.8 g/dL Normal 6.0-8.0 [facility] Comment on above: Performed By: #### C BCA, 24772-2, PINR, 56801-9, CMP, 85442-8, 65953-2, THYR, 93750-9 #### [facility] ([id number]) [address] [place] [address] 06197 Sodium [Moles/Vol] 139 mmol/L Normal 134-146 [facility] Comment on above: Performed By: #### C BCA, 79032-4, PINR, 44796-7, CMP, 53430-8, 30277-7, THYR, 00133-7 #### [facility] ([id number]) [address] [place] [address] 84680 Urea nitrogen [Mass/Vol] 31 mg/dL High 5-27 [facility] Comment on above: Performed By: #### C BCA, 30228-2, PINR, 60164-6, CMP, 95026-5, 04350-7, THYR, 13634-3 #### [facility] ([id number]) [address] [place] [address] 39886 Fibrin D-dimer DDU (PPP) [Ma ss/Vol]on 07-15-2023 D DIMER 220 ng/mL DDU Normal <255 [facility] Comment on above: Result Comment: Results <255 ng/mL DDU: The presence of a VTE can safely be excluded with a negative D-Dimer result and Wells score. A negative result doesn't exclude the possibility of DIC. The test be repeated along with other diagnostic tests if the patient's symptoms persist or worsen. [email or web address] Performed By: #### C BCA, 36349-1, PINR, 76305-9, CMP, 40077-3, 52344-2, THYR, 33364-7 #### [facility] ([id number]) [address] [place] [address] 27762 MAGNESIUMon 07-15-2023 Magnesium [Mass/Vol] 1.8 mg/dL Normal 1.8-2.6 [facility] Comment on above: Performed By: #### C BCA, 77534-1, PINR, 25629-5, CMP, 23757-0, 31688-8, THYR, 19044-7 #### [facility] ([id number]) [address] [place] [address] 86875 Natriuretic peptide B [Mass/ Vol]on 07-15-2023 Natriuretic peptide B (Bld) [Mass/Vol] 119 pg/mL High <100.0 [facility] Comment on above: Performed By: #### C BCA, 12217-5, PINR, 88997-0, CMP, 70973-0, 84437-4, THYR, 72399-7 #### [facility] ([id number]) [address] [place] [address], [place] [address] PROTIME AND INRon 07-15-2023 INR Coag (PPP) [Relative time] 1.8 {INR} High 0.8-1.1 [facility] Comment on above: Performed By: #### C BCA, 35591-8, PINR, 94999-8, CMP, 75500-1, 48415-0, THYR, 21719-2 #### [facility] ([id number]) [address] [place] [address] [place] [address] PT Coag (PPP) [Time] 20.8 s High 9.8-13.2 [facility] Comment on above: Result Comment: NEW REFERENCE RANGE Performed By: #### C BCA, 57147-2, PINR, 74984-8, CMP, 26965-4, 24007-3, THYR, 81212-2 #### [facility] ([id number]) [address] [place] [address], [place] [address] THYROID PROFILEon 07-15-2023 Free T4 [Mass/Vol] 1.25 ng/dL Normal 0.61-1.60 [facility] Comment on above: Performed By: #### C BCA, 34305-1, PINR, 12321-4, CMP, 16048-2, 52604-7, THYR, 89665-5 #### [facility] ([id number]) [address] [place] [address] [place] [address] TSH 1.69 uIU/mL Normal 0.49-4.67 [facility] Comment on above: Performed By: #### C BCA, 81859-1, PINR, 32649-0, CMP, 28788-3, 81604-7, THYR, 45829-5 #### [facility] ([id number]) [address] [place] [address] 08796 TROPONIN Ion 07-15-2023 Troponin I.cardiac [Mass/Vol] 0.01 ng/mL Normal 0.00-0.04 [facility] Comment on above: Performed By: #### C BCA, 26801-9, PINR, 63400-5, CMP, 38135-3, 14550-2, THYR, 95196-5 #### [facility] ([id number]) [address] [place] [address] 45960 XR CHEST 2 VWSon 07-15-2023 XR CHEST 2 VWS XR CHEST 2 VWS History: chest pressure Exam/Technique: PA and lateral chest Comparison: None. Findings: There is no evidence of active pulmonary or pleural disease. Cardiac and mediastinal contours are within normal limits. Left-sided surgical clips. Granulomatous changes. IMPRESSION: No active pulmonary disease. Finalized by Adrian Ervin MD on 07/15/2023 1:14 PM Normal [facility] aPTT Coag (PPP) [Time]on aPTT Coag (Bld) [Time] 36 s Normal 26-37 [facility] Comment on above: Result Comment: NEW REFERENCE RANGE Performed By: #### C BCA, 79666-7, PINR, 03669-9, CMP, 07666-6, 08473-3, THYR, 32467-5 #### [facility] ([id number]) [address] [place] [address] 69170 AFB SMEARon 07-09-2023 ACID FAST SMEAR Negative Normal [facility] Comment on above: Result Comment: PERF ORMED AT [facility] Performed By: #### U MAC, UMIC #### Testing performed at [address] [address] BASIC METABOLIC PANELon Anion gap [Moles/Vol] 1 mmol/L MMOL/L [facility] Calcium [Mass/Vol] 8.7 mg/dL [facility] Chloride [Moles/Vol] 103 mmol/L [facility] Comment on above: Please note: Triglyc eride levels of 600mg/dL or higher may positively bias chloride results by approximately 2.1 mmol CO2 [Moles/Vol] 30 mmol/L [facility] Creatinine [Mass/Vol] 1.10 mg/dL [facility] GFR COMMENT Average GFR for 70+ years old = 75. [facility] Comment on above: Chronic Kidney disea se, GFR = <60. Kidney failure, GFR = <15. The GFR estimate is not adjusted for extreme body surface area or acute process, nor has it been validated for women or ethnic groups other than and . GFR/1.73 sq M.predicted among blacks MDRD (S/P/Bld) [Vol rate/Area] 62 mL/min/{1.73_m2} ml/min/1.73s q.m [facility] GFR/1.73 sq M.predicted among non-blacks MDRD (S/P/Bld) [Vol rate/Area] 51 mL/min/{1.73_m2} ml/min/1.73s q.m [facility] Glucose post fast [Mass/Vol] 141 mg/dL High [facility] Comment on above: NORMAL <100 mg/dL PREDIABETES 101-126 mg/dL DIABETES 126 mg/dL or higher Interpretation and review of laboratory results Abnormal [facility] Potassium [Moles/Vol] 3.8 mmol/L [facility] Sodium [Moles/Vol] 134 mmol/L Low [facility] Urea nitrogen [Mass/Vol] 30 mg/dL High [facility] BMP FASTINGon 2023 Anion gap [Moles/Vol] 1 mmol/L Normal [facility] Comment on above: Performed By: #### U MAC, UMIC #### Testing performed at [facility] [address] [place] [address] Calcium [Mass/Vol] 8.7 mg/dL Normal 8.4-10.2 [facility] Comment on above: Performed By: #### U MAC, UMIC #### Testing performed at [address] [address] Chloride [Moles/Vol] 103 mmol/L Normal 98-107 [facility] Comment on above: Result Comment: Kristine bryant note: Triglyceride levels of 600mg/dL or higher may positively bias chloride results by approximately 2.1 mmol Performed By: #### U MAC, UMIC #### Testing performed at [address] [address] CO2 [Moles/Vol] 30 mmol/L Normal 22-30 [facility] Comment on above: Performed By: #### U MAC, UMIC #### Testing performed at [address] [address] Creatinine [Mass/Vol] 1.10 mg/dL Normal 0.70-1.20 [facility] Comment on above: Performed By: #### U MAC, UMIC #### Testing performed at [address] [address] EST. GFR, 62 ml/min/1.73sq.m [facility] Comment on above: Performed By: #### U MAC, UMIC #### Testing performed at [address] [address] EST. GFR,Non 51 ml/min/1.73sq.m [facility] Comment on above: Performed By: #### U MAC, UMIC #### Testing performed at [address] [address] GFR Information Average GFR for 70+ years old = 75. Normal [facility] Comment on above: Result Comment: Merchandising Professor juan diego Kidney disease, GFR = <60. Kidney failure, GFR = <15. The GFR estimate is not adjusted for extreme body surface area or acute process, nor has it been validated for women or ethnic groups other than and . Performed By: #### U MAC, UMIC #### Testing performed at [address] [address] Glucose [Mass/Vol] 141 mg/dL High 70-100 [facility] Comment on above: Result Comment: NORMAL <100 mg/dL PREDIABETES 101-126 mg/dL DIABETES 126 mg/dL or higher Performed By: #### U MAC, UMIC #### Testing performed at [address] [address] Potassium [Moles/Vol] 3.8 mmol/L Normal 3.5-5.1 [facility] Comment on above: Performed By: #### U MAC, UMIC #### Testing performed at [address] [address] Sodium [Moles/Vol] 134 mmol/L Low 137-145 [facility] Comment on above: Performed By: #### U MAC, UMIC #### Testing performed at [address] [address] Urea nitrogen [Mass/Vol] 30 mg/dL High 7-20 [facility] Comment on above: Performed By: #### U MAC, UMIC #### Testing performed at [address] [address] CBCon 2023 ABSOLUTE BAS 0.0 10*3/uL Normal 0.0-0.2 [facility] Comment on above: Performed By: #### U MAC, UMIC #### Testing performed at [address] [address] ABSOLUTE EOS 0.0 10*3/uL Normal 0.0-0.7 [facility] Comment on above: Performed By: #### U MAC, UMIC #### Testing performed at [address] [address] ABSOLUTE NEUTROPHIL COUNT 5.2 10*3/uL Normal 1.4-6.5 [facility] Comment on above: Performed By: #### U MAC, UMIC #### Testing performed at [address] [address] Basophils/100 WBC (Bld) 0.3 % Normal 0.0-2.0 [facility] Comment on above: Performed By: #### U MAC, UMIC #### Testing performed at [address] [address] DTYPE AUTO DIFF Normal [facility] Comment on above: Performed By: #### U MAC, UMIC #### Testing performed at [address] [place] [address] Eosinophils/100 WBC (Bld) 0.0 % Normal 0.0-11.0 [facility] Comment on above: Performed By: #### U MAC, UMIC #### Testing performed at [address] [address] Lymphocytes (Bld) [#/Vol] 1.1 10*3/uL Low 1.2-3.4 [facility] Comment on above: Performed By: #### U MAC, UMIC #### Testing performed at [address] [address] Lymphocytes/100 WBC (Bld) 16.4 % Low 20.0-55.0 [facility] Comment on above: Performed By: #### U MAC, UMIC #### Testing performed at [address] [address] Monocytes (Bld) [#/Vol] 0.3 10*3/uL Normal 0.0-0.7 [facility] Comment on above: Performed By: #### U MAC, UMIC #### Testing performed at [address] [address] Monocytes/100 WBC (Bld) 4.3 % Normal 0.0-10.0 [facility] Comment on above: Performed By: #### U MAC, UMIC #### Testing performed at [address] [address] Neutrophils/100 WBC (Bld) 79.0 % High 37.0-75.0 [facility] Comment on above: Performed By: #### U MAC, UMIC #### Testing performed at [address] [address] Erythrocyte distribution width (RBC) [Ratio] 13.2 % Normal 11.5-14.5 [facility] Comment on above: Performed By: #### U MAC, UMIC #### Testing performed at [address] [place] [address] Hematocrit (Bld) [Volume fraction] 33.6 % Low 36.0-48.0 [facility] Comment on above: Performed By: #### U MAC, UMIC #### Testing performed at [address] [place] [address] Hemoglobin (Bld) [Mass/Vol] 12.0 g/dL Normal 12.0-16.0 [facility] Comment on above: Performed By: #### U MAC, UMIC #### Testing performed at [address] [place] [address] MCH (RBC) [Entitic mass] 33.6 pg Normal 26.0-35.0 [facility] Comment on above: Performed By: #### U MAC, UMIC #### Testing performed at [address] [place] [address] MCHC (RBC) [Mass/Vol] 35.6 g/dL Normal 27.0-37.0 [facility] Comment on above: Performed By: #### U MAC, UMIC #### Testing performed at [address] [place] [address] MCV (RBC) [Entitic vol] 94.2 fL Normal 80.0-100.0 [facility] Comment on above: Performed By: #### U MAC, UMIC #### Testing performed at [address] [place] [address] Platelet mean volume (Bld) [Entitic vol] 7.0 fL Low 7.4-11.0 [facility] Comment on above: Performed By: #### U MAC, UMIC #### Testing performed at [address] [place] [address] Platelets (Bld) [#/Vol] 226 10*3/uL Normal 130-400 [facility] Comment on above: Performed By: #### U MAC, UMIC #### Testing performed at [address] [place] [address] RBC (Bld) [#/Vol] 3.57 10*6/uL Low 4.0-5.4 [facility] Comment on above: Performed By: #### U MAC, UMIC #### Testing performed at [address] [place] [address] WBC (Bld) [#/Vol] 6.6 10*3/uL Normal 3.6-11.0 [facility] Comment on above: Performed By: #### U MAC, UMIC #### Testing performed at [facility] [address] [place] [address] CBC, EDIF, PLATELETon 2023 ABSOLUTE BASOPHIL COUNT 0.0 10*3/uL 0.0 - 0.2 10*3/uL [facility] Basophils/100 WBC (Bld) 0.3 % 0.0 - 2.0 % [facility] Differential cell count method Nom (Bld) AUTO DIFF % [facility] Eosinophils (Bld) [#/Vol] 0.0 10*3/uL 0.0 - 0.7 10*3/uL [facility] Eosinophils/100 WBC (Bld) 0.0 % 0.0 - 11.0 % [facility] Erythrocyte distribution width (RBC) [Ratio] 13.2 % 11.5 - 14.5 % [facility] Hematocrit (Bld) [Volume fraction] 33.6 % Low 36.0 - 48.0 % [facility] Hemoglobin (Bld) [Mass/Vol] 12.0 g/dL [facility] Interpretation and review of laboratory results Abnormal [facility] Lymphocytes (Bld) [#/Vol] 1.1 10*3/uL Low 1.2 - 3.4 10*3/uL [facility] Lymphocytes/100 WBC (Bld) 16.4 % Low 20.0 - 55.0 % [facility] MCH (RBC) [Entitic mass] 33.6 pg 26.0 - 35.0 PG [facility] MCHC (RBC) [Mass/Vol] 35.6 g/dL [facility] MCV (RBC) [Entitic vol] 94.2 fL [facility] Monocytes (Bld) [#/Vol] 0.3 10*3/uL 0.0 - 0.7 10*3/uL [facility] Monocytes/100 WBC (Bld) 4.3 % 0.0 - 10.0 % [facility] Neutrophils (Bld) [#/Vol] 5.2 10*3/uL 1.4 - 6.5 10*3/uL [facility] Neutrophils/100 WBC (Bld) 79.0 % High 37.0 - 75.0 % [facility] Platelet mean volume (Bld) [Entitic vol] 7.0 fL Low [facility] Platelets (Bld) [#/Vol] 226 10*3/uL 130 - 400 10*3/uL [facility] RBC (Bld) [#/Vol] 3.57 10*6/uL Low 4.0 - 5.4 10*6/uL [facility] WBC (Bld) [#/Vol] 6.6 10*3/uL 3.6 - 11.0 10*3/uL [facility] ANAEROBIC CULTUREon 07-07-19 ANAEROBIC CULTURE SPECIMEN DESCRIPTION HIP RIGHT SPECIAL REQUESTS RIGHT HIP SUTURE GRAM SMEAR NO * Result Note: WBC'S SEEN * * Result Note: NO ORGANISMS SEEN * CULTURE NO GROWTH 5 DAYS * Result Note: Testing performed at [place] [address] * REPORT STATUS 07/12/2023 * Result Note: FINAL * Normal [facility] Comment on above: Performed By: #### U MAC, UMIC #### [place] [address] ANAEROBIC CULTURE SPECIMEN DESCRIPTION HIP RIGHT SPECIAL REQUESTS RIGHT HIP INCISIONAL FLUID GRAM SMEAR NO * Result Note: WBC'S SEEN * * Result Note: NO ORGANISMS SEEN * CULTURE NO GROWTH 5 DAYS * Result Note: Testing performed at [place] [address] * REPORT STATUS 07/12/2023 * Result Note: FINAL * Normal [facility] Comment on above: Performed By: #### A NER #### [place] [address] Testing [place] [address] BODY FLUID CELL COUNTon Appearance (Body fld) HAZY [facility] Color (Body fld) LIGHT YELLOW [facility] RBC Auto (Body fld) [#/Vol] 3376 /CMM [facility] Specimen source Nom (Body fld) SYNOVIAL FLUID [facility] WBC (Body fld) [#/Vol] 57 10*3/uL /CMM [facility] DIFFERENTIAL, FLUIDon 2023 BASOPHILS, FLUID 2 % [facility] Comment on above: NO REFERENCE RANGE E STABLISHED Eosinophils/100 WBC (Body fld) 4 % [facility] Comment on above: NO REFERENCE RANGE E STABLISHED Lymphocytes/100 WBC (Body fld) 22 % [facility] Comment on above: NO REFERENCE RANGE E STABLISHED MESOTHELIAL CELLS, FLUID 8 % [facility] Comment on above: NO REFERENCE RANGE E STABLISHED Monocytes+Macrophage s/100 WBC Manual cnt (Body fld) 48 % [facility] Comment on above: NO REFERENCE RANGE E STABLISHED Neutrophils/100 WBC (Body fld) 16 % [facility] Comment on above: NO REFERENCE RANGE E STABLISHED [facility] FLUID CELL COUNTon 4 FLUID APPEARANCE HAZY Normal [facility] Comment on above: Performed By: #### U MAC, UMIC #### Testing performed at [address] [address] FLUID COLOR LIGHT YELLOW Normal [facility] Comment on above: Performed By: #### U MAC, UMIC #### Testing performed at [address] [address] FLUID RBC'S 3376 /CMM Normal [facility] Comment on above: Performed By: #### U MAC, UMIC #### Testing performed at [address] [place] [address] FLUID TYPE SYNOVIAL FLUID Normal [facility] Comment on above: Performed By: #### U MAC, UMIC #### Testing performed at [address] [place] [address] TOTAL NUCLEATED CELLS 57 /CMM [facility] Comment on above: Performed By: #### U MAC, UMIC #### Testing performed at [address] [place] [address] FLUID DIFFERENTIALon 024 FLUID BASOPHILS 2 % Normal [facility] Comment on above: Result Comment: NO R EFERENCE RANGE ESTABLISHED Performed By: #### F DIFF #### Testing performed at [address] [address] FLUID EOSINOPHILS 4 % Normal [facility] Comment on above: Result Comment: NO R EFERENCE RANGE ESTABLISHED Performed By: #### F DIFF #### Testing performed at [address] [address] FLUID LYMPHOCYTES 22 % Normal [facility] Comment on above: Result Comment: NO R EFERENCE RANGE ESTABLISHED Performed By: #### F DIFF #### Testing performed at [address] [address] FLUID MESOTHELIALS 8 % Normal [facility] Comment on above: Result Comment: NO R EFERENCE RANGE ESTABLISHED Performed By: #### F DIFF #### Testing performed at [address] [address] FLUID MONO/MACRO 48 % Normal [facility] Comment on above: Result Comment: NO R EFERENCE RANGE ESTABLISHED Performed By: #### F DIFF #### Testing performed at [address] [address] FLUID NEUTROPHILS 16 % Normal [facility] Comment on above: Result Comment: NO R EFERENCE RANGE ESTABLISHED Performed By: #### F DIFF #### Testing performed at [address] [address] MRSA SCREENon 07-07-2023 MRSA DNA CHRISTOPHER+probe Ql (Unsp spec) Negative Normal NEGATIVE [facility] Comment on above: Performed By: #### M RSAST #### Testing performed at [address] [address] STAPH AUREUS SCREEN Negative Normal NEGATIVE [facility] Comment on above: Result Comment: TEST ING PERFORMED BY PCR Performed By: #### M RSAST #### Testing performed at [address] [address] REPEAT ABO/RHon 07-07-2023 REPEAT ABO/RH Positive Normal [facility] Comment on above: Performed By: #### U MAC, UMIC #### Testing performed at [address] [address] REPEAT ABO/RH (D) TYPINGon 0 07-07-2023 ABO and Rh group Nom (Bld ) Positive [facility] [employer] SCREEN: MRSA ONLY, NARES (IS OLATION SCREEN)on 07-07-2023 MRSA isol Org specific cx Ql (Nose) Negative NEGATIVE [facility] STAPHYOCOCCUS AUREUS BY PCR Negative NEGATIVE [facility] Comment on above: TESTING PERFORMED BY PCR [facility] WOUND CULTUREon 07-07-2023 WOUND CULTURE SPECIMEN DESCRIPTION HIP RIGHT SPECIAL REQUESTS RIGHT HIP INCISIONAL FLUID GRAM SMEAR NO * Result Note: WBC'S SEEN * * Result Note: NO ORGANISMS SEEN * CULTURE NO GROWTH 5 DAYS * Result Note: Testing performed at [place], [place] [address] * REPORT STATUS 07/12/2023 * Result Note: FINAL * Normal [facility] Comment on above: Performed By: #### U MAC, UMIC #### Testing performed at [facility] [address] [place] [address] XR PELVIS 1-2 VIEWSon 2023 XR PELVIS 1-2 VIEWS CLINICAL HISTORY: Po st right hip surgery. PELVIS AP VIEW: COMPARISON: MRI OF 06/01/2023. FINDINGS/IMPRESSION: 1. 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 A few expected postoperative gas bubbles are noted lateral to the right femur greater trochanter. 2. Mild left hip osteoarthrosis is noted. 3. No fracture, malalignment, or other acute bony abnormality is seen. Normal [facility] XR Pelvis 2 Viewson 07-07-19 FINDINGS/IMPRESSION: 1. 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 A few expected postoperative gas bubbles are noted lateral to the right femur greater trochanter. 2. Mild left hip osteoarthrosis is noted. 3. No fracture, malalignment, or other acute bony abnormality is seen. RADIOLOGY CLINICAL HISTORY: Po st right hip surgery. PELVIS AP VIEW: COMPARISON: [...] or other acute bony abnormality is seen. [facility] Radiology Study observation (narrative) [facility] XR Pelvis 2 ViewsOrdered By: Parveen Mason on 07-07-2023 [facility] Work Phone: CBCon 06-25-2023 ABSOLUTE BAS 0.1 10*3/uL Normal 0.0-0.2 [facility] Comment on above: Performed By: #### U MAC, UMIC #### Testing performed at [address] [address] ABSOLUTE EOS 0.1 10*3/uL Normal 0.0-0.7 [facility] Comment on above: Performed By: #### U MAC, UMIC #### Testing performed at [address] [address] ABSOLUTE NEUTROPHIL COUNT 4.3 10*3/uL Normal 1.4-6.5 [facility] Comment on above: Performed By: #### U MAC, UMIC #### Testing performed at [address] [address] Basophils/100 WBC (Bld) 0.9 % Normal 0.0-2.0 [facility] Comment on above: Performed By: #### U MAC, UMIC #### Testing performed at [address] [address] DTYPE AUTO DIFF Normal [facility] Comment on above: Performed By: #### U MAC, UMIC #### Testing performed at [address] [address] Eosinophils/100 WBC (Bld) 1.2 % Normal 0.0-11.0 [facility] Comment on above: Performed By: #### U MAC, UMIC #### Testing performed at [address] [address] Lymphocytes (Bld) [#/Vol] 2.5 10*3/uL Normal 1.2-3.4 [facility] Comment on above: Performed By: #### U MAC, UMIC #### Testing performed at [address] [address] Lymphocytes/100 WBC (Bld) 32.3 % Normal 20.0-55.0 [facility] Comment on above: Performed By: #### U MAC, UMIC #### Testing performed at [address] [address] Monocytes (Bld) [#/Vol] 0.8 10*3/uL High 0.0-0.7 [facility] Comment on above: Performed By: #### U MAC, UMIC #### Testing performed at [address] [address] Monocytes/100 WBC (Bld) 10.1 % High 0.0-10.0 [facility] Comment on above: Performed By: #### U MAC, UMIC #### Testing performed at [address] [address] Neutrophils/100 WBC (Bld) 55.5 % Normal 37.0-75.0 [facility] Comment on above: Performed By: #### U MAC, UMIC #### Testing performed at [address] [address] Erythrocyte distribution width (RBC) [Ratio] 13.5 % Normal 11.5-14.5 [facility] Comment on above: Performed By: #### U MAC, UMIC #### Testing performed at [address] [address] Hematocrit (Bld) [Volume fraction] 43.9 % Normal 36.0-48.0 [facility] Comment on above: Performed By: #### U MAC, UMIC #### Testing performed at [address] [address] Hemoglobin (Bld) [Mass/Vol] 15.0 g/dL Normal 12.0-16.0 [facility] Comment on above: Performed By: #### U MAC, UMIC #### Testing performed at [address] [address] MCH (RBC) [Entitic mass] 32.6 pg Normal 26.0-35.0 [facility] Comment on above: Performed By: #### U MAC, UMIC #### Testing performed at [address] [address] MCHC (RBC) [Mass/Vol] 34.0 g/dL Normal 27.0-37.0 [facility] Comment on above: Performed By: #### U MAC, UMIC #### Testing performed at [address] [address] MCV (RBC) [Entitic vol] 95.8 fL Normal 80.0-100.0 [facility] Comment on above: Performed By: #### U MAC UMIC #### Testing performed at [address] [address] Platelet mean volume (Bld) [Entitic vol] 7.3 fL Low 7.4-11.0 [facility] Comment on above: Performed By: #### U MAC, UMIC #### Testing performed at [address] [address] Platelets (Bld) [#/Vol] 286 10*3/uL Normal 130-400 [facility] Comment on above: Performed By: #### U MAC UMIC #### Testing performed at [address] [address] RBC (Bld) [#/Vol] 4.59 10*6/uL Normal 4.0-5.4 [facility] Comment on above: Performed By: #### U MAC UMIC #### Testing performed at [address] [address] WBC (Bld) [#/Vol] 7.8 10*3/uL Normal 3.6-11.0 [facility] Comment on above: Performed By: #### U MAC UMIC #### Testing performed at [address] [address] CMP FASTINGon 06-25-2023 A:G RATIO 1.4 RATIO Normal [facility] Comment on above: Performed By: #### U MAC UMIC #### Testing performed at [address] [address] ALBUMIN 4.4 G/dl Normal 3.5-5.0 [facility] Comment on above: Performed By: #### U MAC UMIC #### Testing performed at [address] [address] ALP [Catalytic activity/Vol] 54 U/L Normal 38-126 [facility] Comment on above: Performed By: #### U MAC UMIC #### Testing performed at [address] [address] ALT [Catalytic activity/Vol] 22 U/L Normal <35 [facility] Comment on above: Performed By: #### U MAC, UMIC #### Testing performed at [address] [address] AST [Catalytic activity/Vol] 32 U/L Normal 14-36 [facility] Comment on above: Performed By: #### U MAC, UMIC #### Testing performed at [address] [address] Bilirubin [Mass/Vol] 0.5 mg/dL Normal 0.2-1.3 [facility] Comment on above: Performed By: #### U MAC, UMIC #### Testing performed at [address] [address] Calcium [Mass/Vol] 9.9 mg/dL Normal 8.4-10.2 [facility] Comment on above: Performed By: #### U MAC, UMIC #### Testing performed at [address] [address] Chloride [Moles/Vol] 100 mmol/L Normal 98-107 [facility] Comment on above: Result Comment: Kristine bryant note: Triglyceride levels of 600mg/dL or higher may positively bias chloride results by approximately 2.1 mmol Performed By: #### U MAC, UMIC #### Testing performed at [address] [address] CO2 [Moles/Vol] 33 mmol/L High 22-30 [facility] Comment on above: Performed By: #### U MAC, UMIC #### Testing performed at [address] [address] Creatinine [Mass/Vol] 1.10 mg/dL Normal 0.70-1.20 [facility] Comment on above: Performed By: #### U MAC, UMIC #### Testing performed at [address] [address] EST. GFR, 62 ml/min/1.73sq.m [facility] Comment on above: Performed By: #### U MAC, UMIC #### Testing performed at [address] [address] EST. GFR,Non 51 ml/min/1.73sq.m [facility] Comment on above: Performed By: #### U MAC, UMIC #### Testing performed at [address] [address] GFR Information Average GFR for 70+ years old = 75. Normal [facility] Comment on above: Result Comment: Merchandising Professor juan diego Kidney disease, GFR = <60. Kidney failure, GFR = <15. The GFR estimate is not adjusted for extreme body surface area or acute process, nor has it been validated for women or ethnic groups other than and . Performed By: #### U MAC, UMIC #### Testing performed at [address] [address] Glucose [Mass/Vol] 114 mg/dL High 70-100 [facility] Comment on above: Result Comment: NORMAL <100 mg/dL PREDIABETES 101-126 mg/dL DIABETES 126 mg/dL or higher Performed By: #### U MAC, UMIC #### Testing performed at [address] [address] Potassium [Moles/Vol] 3.1 mmol/L Low 3.5-5.1 [facility] Comment on above: Performed By: #### U MAC, UMIC #### Testing performed at [address] [address] Protein [Mass/Vol] 7.6 g/dL Normal 6.3-8.2 [facility] Comment on above: Performed By: #### U MAC, UMIC #### Testing performed at [address] [address] Sodium [Moles/Vol] 139 mmol/L Normal 137-145 [facility] Comment on above: Performed By: #### U MAC, UMIC #### Testing performed at [address] [address] Urea nitrogen [Mass/Vol] 31 mg/dL High 7-20 [facility] Comment on above: Performed By: #### U MAC, UMIC #### Testing performed at [address] [address] ESRon 06-25-2023 ESR (Bld) [Velocity] 7 mm/h Normal 0-30 [facility] Comment on above: Performed By: #### U MAC, UMIC #### Testing performed at [address] [address] HEMOGLOBIN A1Con 06-25-2023 Glucose [Mass/Vol] 131 mg/dL Normal [facility] Comment on above: Performed By: #### H A1CT #### Testing performed at [address] [address] HbA1c (Bld) [Mass fraction] 6.2 % High 0-6 [facility] Comment on above: Result Comment: NORMAL <5.7% PREDIABETES 5.7-6.4% DIABETES 6.5% OR HIGHER Performed By: #### H A1CT #### Testing performed at [address] [address] HS CRPon 06-25-2023 HS CRP 3.8 mg/L High 1.0-3.0 [facility] Comment on above: Performed By: #### U MAC, UMIC #### Testing performed at [address] [address] MRSA SCREENon 06-25-2023 MRSA DNA CHRISTOPHER+probe Ql (Unsp spec) Negative Normal NEGATIVE [facility] Comment on above: Performed By: #### U MAC, UMIC #### Testing performed at [address] [address] STAPH AUREUS SCREEN Negative Normal NEGATIVE [facility] Comment on above: Result Comment: TEST ING PERFORMED BY PCR Performed By: #### U MAC, UMIC #### Testing performed at [address] [address] PROTIMEon 06-25-2023 INR Coag (PPP) [Relative time] 1.23 {INR} High 0.85-1.10 [facility] Comment on above: Result Comment: 2.0-3.0 THERAPEUTIC RANGE 2.5-3.5 MECHANICAL VALVE RANGE Performed By: #### U MAC, UMIC #### Testing performed at [address] [address] PT Coag (PPP) [Time] 15.6 s High 11.8-14.4 [facility] Comment on above: Performed By: #### U MAC, UMIC #### Testing performed at [address] [address] TYPE AND SCREEN CROSSMATCH C ONVERTIBLEon 06-25-2023 TYPE AND SCREEN CROSSMATCH CONVERTIBLE UNITS ORDERED 2 WORKUP EXPIRES 07/10/2023,2359 ABO/RH(D) A POSITIVE ANTIBODY SCREEN NEGATIVE ARM BAND NUMBER [id number] Normal [facility] Comment on above: Performed By: #### U MAC, UMIC #### Testing performed at [address] [address] URINE MACROSCOPICon 06-25-19 24 Bilirubin Ql (U) Negative Normal NEGATIVE [facility] Comment on above: Performed By: #### U MAC, UMIC #### Testing performed at [address] [address] Clarity (U) HAZY Abnormal CLEAR [facility] Comment on above: Performed By: #### U MAC, UMIC #### Testing performed at [address] [address] Color (U) YELLOW Normal YELLOW [facility] Comment on above: Performed By: #### U MAC, UMIC #### Testing performed at [address] [address] Glucose Ql (U) Negative Normal NEGATIVE [facility] Comment on above: Performed By: #### U MAC, UMIC #### Testing performed at [address] [place] [address] pH (U) 5.5 [pH] Normal 5.0-7.0 [facility] Comment on above: Performed By: #### U MAC, UMIC #### Testing performed at [address] [place] [address] URINE HEMOGLOBIN SMALL Abnormal NEGATIVE [facility] Comment on above: Performed By: #### U MAC, UMIC #### Testing performed at [address] [address] URINE KETONE Negative Normal NEGATIVE [facility] Comment on above: Performed By: #### U MAC, UMIC #### Testing performed at [address] [address] URINE LEUKOTEST SMALL Abnormal NEGATIVE [facility] Comment on above: Performed By: #### U MAC, UMIC #### Testing performed at [address] [place] [address] URINE NITRATES Negative Normal NEGATIVE [facility] Comment on above: Performed By: #### U MAC, UMIC #### Testing performed at [address] [address] URINE SPEC GRAVITY 1.015 Normal 1.010-1.025 [facility] Comment on above: Performed By: #### U MAC, UMIC #### Testing performed at [address] [place] [address] URINE TOTAL PROTEIN Negative Normal NEGATIVE [facility] Comment on above: Performed By: #### U MAC, UMIC #### Testing performed at [address] [address] Urobilinogen Qn (U) 0.2 {Zenia'U}/dL Normal 0.2-1.0 [facility] Comment on above: Performed By: #### U MAC, UMIC #### Testing performed at [address] [address] URINE MICROSCOPICon 06-25-19 24 Bacteria LM.HPF (Urine sed) [#/Area] Negative Normal NEGATIVE [facility] Comment on above: Performed By: #### U MAC, UMIC #### Testing performed at [address] [place] [address] CASTS NONE Normal [facility] Comment on above: Performed By: #### U MAC, UMIC #### Testing performed at [address] [place] [address] CRYSTAL NONE Normal [facility] Comment on above: Performed By: #### U MAC, UMIC #### Testing performed at [address] [address] Epithelial cells LM Ql (Urine sed) 10 TO 20 Normal [facility] Comment on above: Performed By: #### U MAC, UMIC #### Testing performed at [address] [place] [address] Mucus Ql (Urine sed) Negative Normal NEGATIVE [facility] Comment on above: Performed By: #### U MAC, UMIC #### Testing performed at [address] [address] URINE COMMENT POSSIBLY CONTAMINATE D SPECIMEN, CULTURE MUST BE ORDERED SEPARATELY IF DEEMED NECESSARY. Normal [facility] Comment on above: Performed By: #### U MAC, UMIC #### Testing performed at [address] [address] URINE RBC'S 1 TO 5 Normal NEGATIVE [facility] Comment on above: Performed By: #### U MAC, UMIC #### Testing performed at [address] [address] URINE WBC'S 1 TO 5 Normal NEGATIVE [facility] Comment on above: Performed By: #### U MAC, UMIC #### Testing performed at [address] [address] POCT EKGOrdered By: Samantha Gurrola on 06-02-2023 [facility] HIP RIGHT WITHOUT CONTRA STon 06-01-2023 [...] tendons as discussed in detail above. 3. Qtsax-rw-miogfxgo amount of fluid along the lateral aspect of the greater trochanter in the distribution of the greater trochanteric bursa may relate to postoperative seroma or bursitis. 4. No acute bony finding. Normal marrow signal. NOTE: Other chronic/incidental findings are discussed above. Normal [facility] COBALT AND CHROMIUMon 2023 CHROMIUM,WB 1.1 Normal [facility] Comment on above: Result Comment: Refe rence range: <3.0 Unit: ng/mL PERFORMED BY [employer] COBALT,WB <1.0 Normal [facility] Comment on above: Result Comment: Refe rence range: <3.0 Unit: ng/mL (NOTE) Chromium and cobalt analysis performed by inductively coupled plasma/mass spectrometry (ICP/MS). Reference range is for patients with bkyzj-ou-tbshl (MoM) orthopedic implants. The [place] [employer] Hip and Knee [employer], the [place] [employer] Orthopaedic Surgeons, and The Hip Society, have published a consensus statement, Risk Stratification Algorithm for Management of Patients with Mjjtg-kd-Vtkwv Hip Arthroplasty. The algorithm is intended as an aid to orthopedic surgeons in the assessment and management of patients with Xpczl-oe-Msmmx bearings. The systematic risk stratification includes recommendations [...] developed and its performance characteristics determined by [employer]. It has not been cleared or approved by the Food and Drug Administration. COBALT AND CHROMIUM,WBon Chromium (Bld) [Mass/Vol] 1.1 [employer] Comment on above: Reference range: <3. 0 Unit: ng/mL PERFORMED BY [employer] [place] (Bld) [Mass/Vol] <1.0 [employer] [facility] Comment on above: Reference range: <3. 0 Unit: ng/mL (NOTE) Chromium and cobalt analysis performed by inductively coupled plasma/mass spectrometry (ICP/MS). Reference range is for patients with vzlek-kv-bslyp (MoM) orthopedic implants. The [place] [employer] Hip and Knee Surgeons, the [place] [employer] of Orthopaedic Surgeons, and The Hip Society, have published a consensus statement, Risk Stratification Algorithm for Management of Patients with Xghnv-jl-Pugkn Hip Arthroplasty. The algorithm is intended as an aid to orthopedic surgeons in the assessment and management of patients with Zkgvp-yo-Pyqby bearings. The systematic risk stratification includes recommendations [...] developed and its performance characteristics determined by [employer]. It has not been cleared or approved by the Food and Drug Administration. [facility] C REACTIVE PROTEINon 024 CRP [Mass/Vol] 48.4 mg/L High 0 - 10 MG/L [facility] Interpretation and review of laboratory results Abnormal [facility] CRP [Mass/Vol] 48.4 mg/L High 0-10 [facility] Comment on above: Performed By: #### C REACT, ESR #### Testing performed at [address] [address] ESRon 05-14-2023 ESR (Bld) [Velocity] 31 mm/h High 0-30 [facility] Comment on above: Performed By: #### C REACT, ESR #### Testing performed at [address] [address] SEDIMENTATION RATE, AUTOMATE Don 05-14-2023 ESR (Bld) [Velocity] 31 mm/h High [facility] Interpretation and review of laboratory results Abnormal [facility] Urinalysis - DIPSTICKon 10-03 Appearance (U) cloudy [employer] Other Bilirubin Ql (U) Jini [email or web address] Other Color (U) yellow [employer] Other Glucose Ql (U) Negative [employer] Other Hemoglobin Ql (U) [email or web address] Other Ketones Ql (U) Negative [employer] Other Leukocyte esterase Test strip Ql (U) moderate [employer] Other Nitrite Ql (U) Positive [employer] Other pH (U) 5 [pH] [employer] Other Protein Ql (U) Negative [employer] Other Specific gravity (U) [Rel density] 1.010 [employer] Other Urobilinogen (U) [Mass/Vol] off chart [employer] Other Urinalysis - DIPSTICK [employer] Other Urine Cultureon 10-27-2022 Bacteria identified Cx Nom (U) ORGANISM: Escherichia coli (O:ESCCOL) [place] Count >100,000 Aerobic AUBREY Charge (NMIC56) --- SUSCEPTIBILITY -- ORGANISM: O:ESCCOL ANTIBIOTIC INTERPRETATION AUBREY Amikacin S <16 Amoxacillin/K Clavulanate S <8 Ampicillin S <8 Ampicillin/Sulbactam S <4 Aztreonam S <4 Cefazolin S <2 Cefepime S <2 Ceftazidime S <1 Ceftazidime/Avibactam S <4 Ceftolozane/Tazobactam S <2 Ceftriaxone S <1 Cefuroxime S <4 Ciprofloxacin S <0.25 Ertapenem S <0.5 Gentamicin S <2 Levofloxacin S <0.5 Meropenem S <1 Meropenem/Vaborbactam S <2 Nitrofurantoin S <32 Piperacillin/Tazobacta m S <8 Tetracycline S <4 Tigecycline S <2 Tobramycin S <2 Trimethoprim/Sulfameth oxazole S <0.5 S = SUSCEPTIBLE I = [...] RESISTANT TO ALL B-LACTAM DRUGS. PERFORMED BY: [address] [place] [address] PATHOLOGIST [employer]ITTING [employer]ACH[employer] MECH[employer]IC JOSE GUADALUPE FERGUSON M.D. Normal [facility] Comment on above: Performed By: #### C UU #### [facility] [address] Urinalysis - DIPSTICKon 06-05 Appearance (U) cloudy [employer] Other Bilirubin Ql (U) Negative [employer] Other Color (U) pale yellow [employer] Other Glucose Ql (U) Negative [employer] Other Hemoglobin Ql (U) non hem-trace [facility] [employer] Other Ketones Ql (U) trace [employer] Other Leukocyte esterase Test strip Ql (U) moderate [employer] Other Nitrite Ql (U) Negative [employer] Other pH (U) 5 [pH] [employer] Other Protein Ql (U) trace [employer] Other Specific gravity (U) [Rel density] 1.005 [employer] Other Urobilinogen (U) [Mass/Vol] normal [employer] Other Urinalysis - DIPSTICK [employer] Other CULTURE URINEon 06-11-2022 CULTURE URINE Isolate 1 Escherichia coli >100,000 cfu/mL of ORGANISM 1 Escherichia coli ANTIBIOTIC M.I.C RX STATUS Ampicillin 4 S F Ampicillin/Sulbactam <=2 S F Piperacillin/Tazobacta m <=4 S F Cefazolin <=4 S F Ceftazidime <=1 S F Ceftriaxone <=1 S F Ertapenem <=0.5 S F Imipenem <=0.25 S F Amikacin <=2 S F Gentamicin <=1 S F Tobramycin <=1 S F Ciprofloxacin <=0.25 S F Levofloxacin <=0.12 S F Nitrofurantoin <=16 S F Trimethoprim/Sulfameth oxazole <=20 S F Normal [facility] Comment on above: Performed By: #### U RCX #### [facility] [address] [place] [address] Dr. Florencio Narayanan CARDIAC AMBER ADMITon 023 CK [Catalytic activity/Vol] 44 U/L Normal 26-192 [facility] Comment on above: Performed By: #### C LILIAN LOZANO CMADM #### [facility] [address] [address] [address] Florencio Narayanan CK.MB [Mass/Vol] ng/mL Normal <=3.60 [facility] Comment on above: Performed By: #### C LILIAN LOZANO CMADM #### [facility] [address] [place] [address] Dr. Florencio Narayanan HSTROP 14.6 pg/mL Normal 4.0-51.3 [facility] Comment on above: Result Comment: CUT- OFF POINTS HAVE BEEN ESTABLISHED BASED ON THE FOURTH UNIVERSAL DEFINITIONS OF MYOCARDIAL INFARCTION. THE UPPER REFERENCE LIMIT (URL) OF TROPONIN, DEFINED THE 99TH PERCENTILE OF cTnI DISTRIBUTION IN A REFERENCE POPULATION, HAS BEEN CONFIRMED THE DECISION THRESHOLD FOR MA DIAGNOSIS. Performed By: #### C LILIAN LOZANO CMADM #### [facility] [address] [place] [address] Dr. Florencio Narayanan UMER 109 ng/mL Critically high 9-82 [facility] Comment on above: Performed By: #### C LILIAN LOZANO CMADM #### [facility] [address] [place] [address] Dr. Florencio Narayanan CBC AUTO DIFFon 06-09-2022 BASO # 0.1 103/ul Normal 0.0-0.1 [facility] Comment on above: Performed By: #### C BC #### [facility] [address] [place] [address] Dr. Florencio Narayanan Basophils/100 WBC (Bld) 0.4 % Normal 0.2-2.0 [facility] Comment on above: Performed By: #### C BC #### [facility] [address] [place] [address] Dr. Florencio Narayanan EO # 0.0 103/ul Normal 0.0-0.7 [facility] Comment on above: Performed By: #### C BC #### [facility] [address] [place] [address] Dr. Florencio Narayanan Eosinophils/100 WBC (Bld) 0.2 % Critically low 0.9-7.0 [facility] Comment on above: Performed By: #### C BC #### [facility] [address] [place] [address] Dr. Florencio Narayanan Erythrocyte distribution width (RBC) [Ratio] 12.3 % Normal 11.0-15.0 [facility] Comment on above: Performed By: #### C BC #### [facility] [address] [place] [address] Dr. Florencio Narayanan Hematocrit (Bld) [Volume fraction] 38.4 % Normal 36.0-48.0 [facility] Comment on above: Performed By: #### C BC #### [facility] [address] [place] [address] Dr. Florencio Narayanan Hemoglobin (Bld) [Mass/Vol] 12.7 g/dL Normal 12.0-16.0 [facility] Comment on above: Performed By: #### C BC #### [facility] [address] [place] [address] Dr. Florencio Narayanan IG # 0.06 10e3/ul Critically high 0.00-0.03 [facility] Comment on above: Performed By: #### C BC #### [facility] [address] [place] [address] Dr. Florencio Narayanan IG % 0.5 % Normal 0.0-0.5 [facility] Comment on above: Performed By: #### C BC #### [facility] [address] [place] [address] Dr. Florencio Narayanan LYMPH # 1.0 103/ul Critically low 1.2-3.8 [facility] Comment on above: Performed By: #### C BC #### [facility] [address] [place] [address] Dr. Florencio Narayanan Lymphocytes/100 WBC (Bld) 8.4 % Critically low 20.5-60.0 [facility] Comment on above: Performed By: #### C BC #### [facility] [address] [place] [address] Dr. Florencio Narayanan MANUAL DIFF REQ NO Normal [facility] Comment on above: Performed By: #### C BC #### [facility] [address] [place] [address] Dr. Florencio Narayanan MCH (RBC) [Entitic mass] 32.4 pg Normal 26.7-34.0 [facility] Comment on above: Performed By: #### C BC #### [facility] [address] [place] [address] Dr. Florencio Narayanan MCHC (RBC) [Mass/Vol] 33.1 g/dL Normal 29.9-35.2 [facility] Comment on above: Performed By: #### C BC #### [facility] [address] [place] [address] Dr. Florencio Narayanan MCV (RBC) [Entitic vol] 98.0 fL Normal 81.0-99.0 [facility] Comment on above: Performed By: #### C BC #### [facility] [address] [place] [address] Dr. Florencio Narayanan MONO # 1.6 103/ul Critically high 0.3-0.8 [facility] Comment on above: Performed By: #### C BC #### [facility] [address] [place] [address] Dr. Florencio Narayanan Monocytes/100 WBC (Bld) 13.1 % Critically high 1.7-12.0 [facility] Comment on above: Performed By: #### C BC #### [facility] [address] [place] [address] Dr. Florencio Narayanan NEUT # 9.5 103/ul Critically high 1.4-6.5 [facility] Comment on above: Performed By: #### C BC #### [facility] [address] [place] [address] Dr. Florencio Narayanan Neutrophils/100 WBC (Bld) 77.4 % Critically high 43.0-75.0 [facility] Comment on above: Performed By: #### C BC #### [facility] [address] [address] [address] Florencio Narayanan Platelet mean volume (Bld) [Entitic vol] 9.4 fL Critically low 9.5-13.5 [facility] Comment on above: Performed By: #### C BC #### [facility] [address] [address] [address] Florencio Narayanan PLT 140 103/ul Critically low 150-450 [facility] Comment on above: Performed By: #### C BC #### [facility] [address] [address] [address] Florencio Narayanan RBC 3.92 106/ul Critically low 4.20-5.40 [facility] Comment on above: Performed By: #### C BC #### [facility] [address] [address] [address] Florencio Narayanan WBC 12.2 103/ul Critically high 4.0-11.0 The [facility] Comment on above: Performed By: #### C BC #### [facility] [address] [address] STROKE HEAD WOon [...] The [facility]on SARS-CoV-2 (COVID-19) RNA CHRISTOPHER+probe Ql [...] for this test is supported by the Shelving Supervisor of Health and Human Service's declaration that [...] VDTB #### [facility] [address] [place] [address] Dr. Florencio Narayanan ER URINE PROFILEon 3 Bilirubin Ql (U) Negative Normal NEGATIVE [facility] Comment on above: Performed By: #### ADIEL LE #### [facility] [address] [place] [address] Dr. Florencio Narayanan Clarity (U) CLEAR Normal CLEAR The [facility] Comment on above: Performed By: #### ADIEL LE #### [facility] [address] [place] [address] Dr. Florencio Narayanan Color (U) LT. YELLOW Normal YELLOW The [facility] Comment on above: Performed By: #### ADIEL LE #### [facility] [address] [place] [address] Dr. Florencio Narayanan ERUAHD A micrscopic examination will be performed if indicated. Normal The [facility] Comment on above: Performed By: #### ADIEL LE #### [facility] [address] [place] [address] Dr. Florencio Narayanan Glucose Ql (U) Negative Normal NEGATIVE [facility] Comment on above: Performed By: #### Malini PIZANO UMICRO #### [facility] [address] [place] [address] Dr. Florencio Narayanan Hemoglobin Ql (U) LARGE Abnormal NEGATIVE [facility] Comment on above: Performed By: #### E HARINDER, UMICRO #### [facility] [address] [address] [address] Florencio Narayanan Ketones Ql (U) TRACE Abnormal NEGATIVE [facility] Comment on above: Performed By: #### Malini PIZANO UMICRO #### [facility] [address] [place] [address] Dr. Florencio Narayanan LEUKOCYTES LARGE Abnormal NEGATIVE [facility] Comment on above: Performed By: #### Malini PIZANO UMICRO #### [facility] [address] [place] [address] Dr. Florencio Narayanan Nitrite Ql (U) Positive Abnormal NEGATIVE [facility] Comment on above: Performed By: #### Malini PIZANO UMICRO #### [facility] [address] [place] [address] Dr. Florencio Narayanan pH (U) 5.5 [pH] Normal 5-9 [facility] Comment on above: Performed By: #### Malini PIZANO UMICRO #### [facility] [address] [place] [address] Dr. Florencio Narayanan SPEC GRAVITY 1.010 Normal 1.005-<=1.[address] [place] [address] Comment on above: Performed By: #### Malini PIZANO UMICRO #### [facility] [address] [place] [address] Dr. Florencio Narayanan UA PROTEIN TRACE Normal NEGATIVE/ TRACE The [facility] Comment on above: Performed By: #### Malini PIZANO UMICRO #### [facility] [address] [place] [address] Dr. Florencio Narayanan UR MICRO IND INDICATED Normal [facility] Comment on above: Performed By: #### Malini PIZANO UMICRO #### [facility] [address] [place] [address] Dr. Florencio Narayanan Urobilinogen Qn (U) 0.2 {Zenia'U}/dL Normal 0.2 - 1. 0 [facility] Comment on above: Performed By: #### E ADIEL PIZANO #### [facility] [address] [place] [address] Dr. Florencio Narayanan LIPASEon 06-09-2022 Lipase [Catalytic activity/Vol] 68.0 U/L Critically low 73.0-393.0 [facility] Comment on above: Performed By: #### C MP, LIPA, CMADM #### [facility] [address] [place] [address] Dr. Florencio Narayanan PROF 14(COMP METB)on 023 Albumin [Mass/Vol] 2.5 g/dL Critically low 3.4-5.0 [facility] Comment on above: Performed By: #### C MP, LIPA, CMADM #### [facility] [address] [place] [address] Dr. Florencio Narayanan Albumin/Globulin [Mass ratio] 0.6 {ratio} Normal [facility] Comment on above: Performed By: #### C MP, LIPA, CMADM #### [facility] [address] [place] [address] Dr. Florencio Narayanan ALP [Catalytic activity/Vol] 150 U/L Critically high 46-116 [facility] Comment on above: Performed By: #### C MP, LIPA, CMADM #### [facility] [address] [place] [address] Dr. Florencio Narayanan ALT [Catalytic activity/Vol] 27 U/L Normal 14-59 [facility] Comment on above: Performed By: #### C MP, LIPA, CMADM #### [facility] [address] [place] [address] Dr. Florencio Narayanan Anion gap [Moles/Vol] 12.8 mmol/L Normal [facility] Comment on above: Performed By: #### C MP, LIPA, CMADM #### [facility] [address] [place] [address] Dr. Florencio Narayanan AST [Catalytic activity/Vol] 31 U/L Normal 15-37 [facility] Comment on above: Performed By: #### C MP, LIPA, CMADM #### [facility] [address] [address] [address] Florencio Narayanan Bilirubin [Mass/Vol] 1.1 mg/dL Critically high 0.2-1.0 [facility] Comment on above: Performed By: #### C MP, LIPA, CMADM #### [facility] [address] [address] [address] Florencio Narayanan Calcium [Mass/Vol] 9.1 mg/dL Normal 8.5-10.1 [facility] Comment on above: Performed By: #### C MP, LIPA, CMADM #### [facility] [address] [address] [address] Florencio Narayanan Chloride [Moles/Vol] 95 mmol/L Critically low 98-107 [facility] Comment on above: Performed By: #### C MP, LIPA, CMADM #### [facility] [address] [address] [address] Florencio Narayanan CO2 [Moles/Vol] 29.4 mmol/L Normal 21.0-32.0 [facility] Comment on above: Performed By: #### C MP, LIPA, CMADM #### [facility] [address] [address] [address] Florencio Narayanan Creatinine [Mass/Vol] 1.34 mg/dL Critically high 0.55-1.02 [facility] Comment on above: Performed By: #### C MP, LIPA, CMADM #### [facility] [address] [address] [address] Florencio Narayanna EGFR-AF STATELESS 47 mL/min/1.73m2 Critically low >=60 [facility] Comment on above: Performed By: #### C MP, LIPA, CMADM #### [facility] [address] [address] [address] Florencio Narayanan EGFR-NON AF STATELESS 39 mL/min/1.73m2 Critically low >=60 [facility] Comment on above: Performed By: #### C MP, LIPA, CMADM #### [facility] [address] [address] [address] Florencio Narayanan Globulin (S) [Mass/Vol] 4.3 g/dL Normal [facility] Comment on above: Performed By: #### C MP, LIPA, CMADM #### [facility] [address] [address] [address] Florencio Narayanan Glucose [Mass/Vol] 118 mg/dL Critically high 74-106 [facility] Comment on above: Performed By: #### C MP, LIPA, CMADM #### [facility] [address] [place] [address] Dr. Florencio Narayanan Potassium [Moles/Vol] 3.2 mmol/L Critically low 3.5-5.1 [facility] Comment on above: Performed By: #### C MP, LIPA, CMADM #### [facility] [address] [address] [address] Florencio aNrayanan Protein [Mass/Vol] 6.8 g/dL Normal 6.4-8.2 [facility] Comment on above: Performed By: #### C MP, LIPA, CMADM #### [facility] [address] [place] [address] Dr. Florencio Narayanan Sodium [Moles/Vol] 134 mmol/L Critically low 136-145 [facility] Comment on above: Performed By: #### C MP, LIPA, CMADM #### [facility] [address] [place] [address] Dr. Florencio Narayanan Urea nitrogen [Mass/Vol] 29.0 mg/dL Critically high 7.0-18.0 [facility] Comment on above: Performed By: #### C MP, LIPA, CMADM #### [facility] [address] [place] [address] Dr. Florencio Narayanan Urea nitrogen/Creatinine [Mass ratio] 21.6 mg/mg Normal [facility] Comment on above: Performed By: #### C MP, LIPA, CMADM #### [facility] [address] [place] [address] Dr. Florencio Narayanan URINE MICROSCOPIC ONLYon BACTERIA SMALL Abnormal NONE SEEN The [facility] Comment on above: Performed By: #### Malini PIZANO UMICRO #### [facility] [address] [place] [address] Dr. Florencio Narayanan Bacteria identified Cx Nom (U) INDICATED Normal [facility] Comment on above: Performed By: #### Malini PIZANO UMICRO #### [facility] [address] [place] [address] Dr. Florencio Narayanan CAST NONE SEEN Normal NONE SEEN The [facility] Comment on above: Performed By: #### Malini PIZANO UMICRO #### [facility] [address] [place] [address] Dr. Florencio Narayanan Crystals LM Nom (Urine sed) NONE SEEN Normal NONE SEEN The [facility] Comment on above: Performed By: #### Malini PIZANO UMICRO #### [facility] [address] [place] [address] Dr. Florencio Narayanan Epithelial cells LM Ql (Urine sed) FEW Abnormal NONE SEEN /RARE [facility] Comment on above: Performed By: #### Malini PIZANO UMICRO #### [facility] [address] [place] [address] Dr. Florencio Narayanan MUCOUS NONE SEEN Normal NONE SEEN The [facility] Comment on above: Performed By: #### Malini PIZANO UMICRO #### [facility] [address] [place] [address] Dr. Florencio Narayanan RBC 2-5 Abnormal 0-2 [facility] Comment on above: Performed By: #### Malini PIZANO UMICRO #### [facility] [address] [place] [address] Dr. Florencio Narayanan WBC 10-20 Abnormal NONE SEEN The [facility] Comment on above: Performed By: #### Malini PIZANO UMICRO #### [facility] [address] [place] [address] Dr. Florencio Narayanan XR CHEST 2 Von 02-06-2023 XR CHEST 2 V EXAM: XR CHEST [...] JOAQUÍN ATKINS Date: 2022-06-09 12:24 Normal [facility] CULTURE URINEon 04-16-2022 CULTURE URINE Isolate 1 Escherichia coli >100,000 cfu/mL of ORGANISM 1 Escherichia coli ANTIBIOTIC M.I.C RX STATUS Ampicillin >=32 R F Ampicillin/Sulbactam 16 I F Piperacillin/Tazobacta m <=4 S F Cefazolin <=4 S F Ceftazidime <=1 S F Ceftriaxone <=1 S F Ertapenem <=0.5 S F Imipenem <=0.25 S F Amikacin <=2 S F Gentamicin >=16 R F Tobramycin 4 S F Ciprofloxacin <=0.25 S F Levofloxacin <=0.12 S F Nitrofurantoin <=16 S F Trimethoprim/Sulfameth oxazole >=320 R F Normal The [facility] Comment on above: Performed By: #### C #### [facility] [address] [place] [address] Dr. Florencio Narayanan MRI Hip w/o Righton [...] by Ramon Ambrocio on 09/11/2021 1545 Normal [facility] [employer] Consult Reporton 03-14-2020 Consult Report [facility] CONSULTATION BETTIE BURNS 3ET [id number] OBSV ANABEL WATKINS MD [id number] REFERRING PHYSICIAN: CONSULTING PHYSICIAN: Renetta Almanzar MD DATE OF CONSULTATION: 03/11/2020 REASON: A near syncopal event in a 74-year-old female, with a history of atrial fibrillation, previous cardiac ablation, who was the time of evaluation noted to have a positive test for COVID. HISTORY OF PRESENT ILLNESS: Mrs. Burns is a very pleasant, alert and oriented -[id number] female who was brought into the emergency [...] had COVID. PAST MEDICAL HISTORY: As above. PERSONAL/FAMILY/SOCIAL HISTORY: Patient is . She is a [...] including quarantine. Many thanks. MD KALYAN GONZALEZ/Isidro /[id number] Normal [facility] BASICMETAon 03-11-2020 GFR AA >60 Normal [facility] Comment on above: Result Comment: Afri can Libyan GFR Calc Medical judgement is necessary to [...] for drug dosing. Performed By: #### 1 68786, [id number], [id number] ####[facility] [id number] [place] [address] Medical Director: Fahad Cast MD GFR/1.73 sq M predicted among non-blacks MDRD (S/P/Bld) [Vol rate/Area] 56 mL/min/1.73m? Normal [facility] Comment on above: Result Comment: Non [...] for drug dosing. Performed By: #### 1 22653, [id number], 735941 ####[facility] [id number] [place] [address] Medical Director: Fahad Cast MD Osmolality [Osmolality] 291 mOsm/kg Normal 275-295 [facility] Comment on above: Performed By: #### 1 92700, 787900, [id number] ####[facility] [id number] [place] [address] Medical Director: Fahad Cast MD Urea nitrogen/Creatinine [Mass ratio] 24.5 mg/mg Normal [facility] Comment on above: Performed By: #### 1 52322, 064097, 235040 ####[facility] [id number] [place] [address] Medical Director: Fahad Cast MD Calcium [Mass/Vol] 9.3 mg/dL Normal 8.5-10.5 [facility] Comment on above: Performed By: #### 1 27669, 359325, 167424 ####[facility] [id number] [place] [address] Medical Director: Fahad Cast MD Chloride [Moles/Vol] 108 mmol/L Normal 100-109 [facility] Comment on above: Performed By: #### 1 42513, 840794, 642215 ####[facility] [id number] [place] [address] Medical Director: Fahad Cast MD CO2, venous 28.9 mmol/L Normal 21.0-32.0 [facility] Comment on above: Performed By: #### 1 40896, 630160, 132066 ####[facility] [id number] [place] [address] Medical Director: Fahad Cast MD Creatinine [Mass/Vol] 1.0 mg/dL Normal 0.6-1.0 [facility] Comment on above: Performed By: #### 1 22101, 465063, 937659 ####[facility] [address] [place] [address] Medical Director: Fahad Cast MD Glucose [Mass/Vol] 98 mg/dL Normal 72-100 [facility] Comment on above: Result Comment: Sharon puncture should occur prior to sulfasalazine administration due to the potential for falsely depressed results. Venipuncture should occur prior to sulfapyridine administration due to the potential falsely elevated results. Baseline assay values before administration of sulfasalazine and sulfapyridine therapy would not be affected. Performed By: #### 1 15878, 091792, 352834 ####[facility] [id number] [place] [address] Medical Director: Fahad Cast MD Potassium [Moles/Vol] 4.2 mmol/L Normal 3.5-5.1 [facility] Comment on above: Performed By: #### 1 42930, 057329, 502789 ####[facility] [address] [place] [address] Medical Director: Fahad Cast MD Sodium [Moles/Vol] 144 mmol/L Normal 135-145 [facility] Comment on above: Performed By: #### 1 38854, 100693, 728281 ####[facility] [id number] [place] [address] Medical Director: Fahad Cast MD Urea nitrogen [Mass/Vol] 24 mg/dL High 10-20 [facility] Comment on above: Performed By: #### 1 85833, 558290, 872253 ####[facility] [address] [place] [address] Medical Director: Fahad Cast MD CBCNDon 03-11-2020 Erythrocyte distribution width (RBC) [Ratio] 14.4 % Normal 11.5-14.5 [facility] Comment on above: Performed By: #### 1 68509, 118921, 679722 #### [facility] [address] [place] [address] [employer] Engine As[employer]er: Fahad Cast MD Hematocrit (Bld) [Volume fraction] 33.9 % Low 36.0-46.0 [facility] Comment on above: Performed By: #### 1 47593, 198111, 871471 #### [facility] [address] [place] [address] [employer]er: Fahad Cast MD Hemoglobin (Bld) [Mass/Vol] 11.2 g/dL Low 12.0-16.0 [facility] Comment on above: Performed By: #### 1 04881, 668824, 280815 #### [facility] [address] [place] [address] [employer]: Fahad Cast MD MCH (RBC) [Entitic mass] 29.5 pg Normal 27.0-34.0 [facility] Comment on above: Performed By: #### 1 61234, 334972, 831454 #### [facility] [address] [place] [address] [employer]er: Fahad Cast MD MCHC (RBC) [Mass/Vol] 33.0 g/dL Normal 32.0-37.0 [facility] Comment on above: Performed By: #### 1 57362, 605103, 669251 #### [facility] [address] [place] [address] [employer]er: Fahad Cast MD MCV (RBC) [Entitic vol] 89.5 fL Normal 80.0-100.0 [facility] Comment on above: Performed By: #### 1 26913, 290236, 561144 #### [facility] Services [address] [place] [address] 18647 Gasoline Engine Assembler: Fahad Cast MD Platelet mean volume (Bld) [Entitic vol] 6.8 fL Low 7.4-10.4 [facility] Comment on above: Performed By: #### 1 87003, 727085, 828261 #### [facility] Services [address] [place] [address] 97193 [employer] Engine Assembler: Fahad Cast MD Platelets (Bld) [#/Vol] 232 x1000 Normal 150-450 [facility] Comment on above: Performed By: #### 1 79410, 366190, 442414 #### [facility] Services [address] [place] [address] 59543 [employer] Engine Assembler: Fahad Cast MD RBC (Bld) [#/Vol] 3.79 x10 Low 4.20-5.40 [facility] Comment on above: Result Comment: Note : RBC morphology is normal unless otherwise stated. Evaluation performed only if differential is requested. Performed By: #### 1 96021, 711167, 313833 #### [facility] Laboratory Services [address] [place] [address] Gasoline Engine Assembler: Fahad Cast MD WBC (Bld) [#/Vol] 5.8 10*3/uL Normal [facility] Comment on above: Performed By: #### 1 72851, 238507, 421622 #### [facility] Laboratory Services [address] [place] [address] 81819 Gasoline Engine Assembler: Fahad Cast MD WBC (Bld) [#/Vol] 5.8 x10 Normal 4.5-11.0 [facility] Comment on above: Performed By: #### 1 91092, 894694, 539083 #### [facility] Laboratory Services [address] [place], [place] [id number] Gasoline Engine Assembler: Fahad Cast MD D Dimer HSon 03-11-2020 D Dimer HS 821 ng/mL FEU High <=499 [facility] Comment on above: Result Comment: Excl usion of PE and DVT The D Dimer HS assay is reported in ng/ml Fibrinogen Equivalent Units (FEU). Per advertising sales consultant?s instructions for use, a value less than 500ng/ml (FEU) may help to exclude DVT and /or PE in outpatients when the assay is used with a clinical pretest probability assessment. D-Dimer used for DIC Screens Assay results should be used with other information, including the clinical context in forming a diagnosis. Performed By: #### C [id number] ####[facility] Laboratory [address]io[address]16 [place] [address] Medical Director: Fahad Cast MD LDHon 03-11-2020 LDH 198 unit/L Normal 84-246 [facility] Comment on above: Performed By: #### 1 78655, 049108, 430128 #### [facility] Laboratory Services [address] [place] [address] Gasoline Engine Assembler: Fahad Cast MD Progress Note-Physicianon Progress Note-Physician [...] Continue home medications. 6) DVT ppx: On EliFontacto Normal [facility] Utilization Review Noteon Utilization Review Note ID Consult pending DISCHARGE WRITTEN AND PLANNED. Normal [facility] AUTO DIFFon 03-10-2020 Basophils (Bld) [#/Vol] 0.05 x1000 Normal 0.00-0.20 [facility] Comment on above: Performed By: #### 1 53283, 793330, 6064209 ####[facility] Laboratory [address]27[address] [place] [address] Medical Director: Fahad Cast MD Basos % 0.6 % Normal [facility] Comment on above: Performed By: #### 1 44642, 698789, 5732486 ####[facility] Laboratory [address] [place] [address] Medical Director: Fahad Cast MD Eos Count 0.15 x1000 Normal 0.00-0.50 [facility] Comment on above: Performed By: #### 1 10132, 789970, 2679890 ####[facility] Ksznbnai76652 [place] [address] Medical Director: Fahad Cast MD Eosinophils/100 WBC (Bld) 1.8 % Normal [facility] Comment on above: Performed By: #### 1 42810, 784837, 7649721 ####[facility] Jktbujip37502 [place] [address] Medical Director: Fahad Cast MD Lymphocytes (Bld) [#/Vol] 1.05 x1000 Low 1.20-4.80 [facility] Comment on above: Performed By: #### 1 29673, 538799, 3763992 ####[facility] Laboratory Xyiglwkk31113 [place] [address] Medical Director: Fahad Cast MD Lymphocytes/100 WBC (Bld) 12.7 % Normal [facility] Comment on above: Performed By: #### 1 77990, 979096, 2494644 ####[facility] Laboratory J[address]yrbzx79064 [place] [address] Medical Director: Fahad Cast MD Sublette Count 0.70 x1000 Normal 0.10-1.00 [facility] Comment on above: Performed By: #### 1 16419, 959105, 0542349 ####[facility] Laboratory Qfapmmhe74487 [place] [address] Medical Director: Fahad Cast MD Monocytes/100 WBC (Bld) 8.4 % Normal [facility] Comment on above: Performed By: #### 1 45897, 671544, 1064540 ####[facility] Laboratory Eyontmqg17453 [place] [address] Medical Director: Fahad Cast MD Neutrophils (Bld) [#/Vol] 6.32 x1000 Normal 1.40-8.80 [facility] Comment on above: Performed By: #### 1 10561, 019973, 5975809 ####[facility] Laboratory Jlactgob22120 [place] [address] Medical Director: Fahad Cast MD Neutrophils/100 WBC (Bld) 76.4 % Normal [facility] Comment on above: Performed By: #### 1 42522, 689973, 2921759 ####[facility] Laboratory Renwkbxz58596 [place] [address] Medical Director: Fahad Cast MD COMPMETAon 03-10-2020 Albumin [Mass/Vol] 3.4 g/dL Normal 3.4-5.0 [facility] Comment on above: Performed By: #### 1 54704, 469105, 7949830 ####[facility] Laboratory [address] [place] [address] Medical Director: Fahad Cast MD Albumin/Globulin [Mass ratio] 0.8 {ratio} Normal [facility] Comment on above: Performed By: #### 1 , 182179, 8328604 ####[facility] [address] [place] [address] Medical Director: Fahad Cast MD Alk Phos 71 unit/L Normal 45-117 [facility] Comment on above: Performed By: #### 1 , 283708, 2289897 ####[facility] [address]ykerixv04707 [place] [address] Medical Director: Fahad Cast MD Bilirubin [Mass/Vol] 0.37 mg/dL Normal 0.20-1.00 [facility] Comment on above: Result Comment: Use of this assay is not recommended for patients undergoing treatment with eltrombopag due to the potential for falsely elevated results. Performed By: #### 1 , 229155, 4589644 ####[facility] Laboratory [address] [place] [address] Medical Director: Fahad Cast MD Calcium [Mass/Vol] 9.4 mg/dL Normal 8.5-10.5 [facility] Comment on above: Performed By: #### 1 , 663522, 7466703 ####[facility] [address] [place] [address] Medical Director: Fahad Cast MD Chloride [Moles/Vol] 108 mmol/L Normal 100-109 [facility] Comment on above: Performed By: #### 1 , 169068, 9760369 ####[facility] Aeyyldpy20936 [place], [place] [address]) [phone] Director: Fahad Cast MD CO2, venous 28.2 mmol/L Normal 21.0-32.0 [facility] Comment on above: Performed By: #### 1 07822, 892610, 1958493 ####[facility] Advgmwau02979 [place], [place] [address]) [phone] Director: Fahad Cast MD Creatinine [Mass/Vol] 1.2 mg/dL High 0.6-1.0 [facility] Comment on above: Performed By: #### 1 51802, 944674, 4513510 ####[facility] Mjwsspiy23399 [place], [place] [id number]) [phone] Director: Fahad Cast MD GFR AA 53 Normal [facility] Comment on above: Result Comment: Afri can Libyan GFR Calc Medical judgement is necessary to [...] for drug dosing. Performed By: #### 1 61977, 185361, 1421903 ####[facility] Lvpfzlkf52664 [place], [place] [phone]) [phone] Director: Fahad Cast MD GFR/1.73 sq M predicted among non-blacks MDRD (S/P/Bld) [Vol rate/Area] 44 mL/min/1.73m? Normal [facility] Comment on above: Result Comment: Non [...] for drug dosing. Performed By: #### 1 62046, 206586, 1537362 ####[facility] [address] [place] [address] Medical Director: Fahad Cast MD Globulin (S) [Mass/Vol] 4.0 g/dL Normal [facility] Comment on above: Performed By: #### 1 46454, 790254, 6709654 ####[facility] [address]gdnswzy75866 [place] [address] Medical Director: Fahad Cast MD Glucose [Mass/Vol] 143 mg/dL High 72-100 [facility] Comment on above: Result Comment: Sharon puncture should occur prior to sulfasalazine administration due to the potential for falsely depressed results. Venipuncture should occur prior to sulfapyridine administration due to the potential falsely elevated results. Baseline assay values before administration of sulfasalazine and sulfapyridine therapy would not be affected. Performed By: #### 1 03565, 216245, 2611035 ####[facility] [address] [place] [address] Medical Director: Fahad Cast MD GOT 18 unit/L Normal 15-37 [facility] Comment on above: Result Comment: Sharon puncture should occur prior to sulfasalazine and/or sulfapyridine administration due to the potential for falsely depressed results. Baseline assay values before administration of sulfasalazine and sulfapyridine therapy would not be affected. Performed By: #### 1 60266, 542141, 8789235 ####[facility] [address] [place] [phone]) [phone] Director: Fahad Cast MD GPT 19 unit/L Normal 13-56 [facility] Comment on above: Result Comment: Sharon puncture should occur prior to sulfasalazine and/or sulfapyridine administration due to the potential for falsely depressed results. Baseline assay values before administration of sulfasalazine and sulfapyridine therapy would not be affected. Performed By: #### 1 43013, 206757, 2383252 ####[facility] [address] [place] [address] Medical Director: Fahad Cast MD Osmolality [Osmolality] 293 mOsm/kg Normal 275-295 [facility] Comment on above: Performed By: #### 1 10807, 297877, 4328652 ####[facility] Yfoegegt91722 [place] [address] Medical Director: Fahad Cast MD Potassium [Moles/Vol] 4.0 mmol/L Normal 3.5-5.1 [facility] Comment on above: Performed By: #### 1 68571, 502892, 0248929 ####[facility] Nrngemgc42659 [place] [address] Medical Director: Fahad Cast MD Protein [Mass/Vol] 7.4 g/dL Normal 6.0-8.5 [facility] Comment on above: Performed By: #### 1 95205, 087086, 2652065 ####[facility] [address] [place] [address] Medical Director: Fahad Cast MD Sodium [Moles/Vol] 142 mmol/L Normal 135-145 [facility] Comment on above: Performed By: #### 1 75048, 995306, 1637287 ####[facility] Fkzmxtnd98848 [place] [address] Medical Director: Fahad Cast MD Urea nitrogen [Mass/Vol] 32 mg/dL High 10-20 [facility] Comment on above: Performed By: #### 1 06154, 727999, 1393838 ####[facility] Ev[address]auu[address]89[address] [place] [address] Medical Director: Fahad Cast MD Urea nitrogen/Creatinine [Mass ratio] 26.7 mg/mg Normal [facility] Comment on above: Performed By: #### 1 48067, 899685, 6076142 ####[facility] Fiwarggv98691 [place] [address] Medical Director: Fahad Cast MD COVID-19 by PCR SWEDon 03-10 COVID-19 by PCR SWED Positive Abnormal [facility] Comment on above: Result Comment: BLU CHRISTIE 03/10/2020 18:23:22 EST BY SHF; RBR Performed By: #### C [id number] ####[facility] Zgphleyi42144 [place] [address] Medical Director: Fahad Cast MD CRP QUANTon 03-10-2020 C-Reactive Protein, Quantitative 0.8 mg/dL High 0.0-0.3 [facility] Comment on above: Performed By: #### 1 98745, [id number], [id number], [id number] #### [facility] Laboratory Services [address] [place] [address] Gasoline Engine Assembler: Fahad Cast MD CT ABD PELVIS W [...] by: Oni Liu MD 03/10/2020 3:50 PM LUMBER CARRIER OPERATOR Technologist: LIEN BLANCA Dictated By: ONI LIU MD Signed By: ONI LIU MD Signed Out: 03/10/20 16:50:49 Normal [facility] D Dimer HSon 03-10-2020 D Dimer HS 264 ng/mL FEU Normal <=499 [facility] Comment on above: Result Comment: Excl usion of PE and DVT The D Dimer HS assay is reported in ng/ml Fibrinogen Equivalent Units (FEU). Per advertising sales consultant?s instructions for use, a value less than 500ng/ml (FEU) may help to exclude DVT and /or PE in outpatients when the assay is used with a clinical pretest probability assessment. D-Dimer used for DIC Screens Assay results should be used with other information, including the clinical context in forming a diagnosis. Performed By: #### 1 96594, [id number], [id number], [id number] #### [facility] Services [address] [place] [address] Gasoline Engine Assembler: Fahad Cast MD ED Physician Reporton 2019 [...] Line Saline Flush: 3 mL, IV Push, [id number] Documented Medications Documented Eliquis 5 mg oral [...] Interp, Sinus rhythm with first-degree AV block, KS interval 256, QT/QTc/433, incomplete right bundle branch [...] /100WBC NA Lymph % 12.7 % NA Sublette % 8.4 % NA Neutrophil % 76.4 % NA Eosin % 1.8 % NA Basos % 0.6 % NA Lymph Count 1.05 x1000 LOW Sublette Count 0.70 x1000 NORMAL Neutrophil Count (ANC) [...] by: Monae Hernandez MD 03/10/2020 1:58 PM LUMBER CARRIER OPERATOR Signed By: MONAE HERNANDEZ MD CT [...] by: Oni Liu MD 03/10/2020 3:50 PM LUMBER CARRIER OPERATOR Signed By: ONI LIU MD . [...] Course: improving. Impression and Plan Diagnosis Syncope ([id number] R55, Working, Medical) Plan Condition: Stable. Disposition: [...] accurately records my words and actions.. Normal [facility] ED Pre-Arrival Formon 2019 ED Pre-Arrival Form Pre-Arrival Summary Name: STR, Current Date: 03/10/2020 13:52:19 EST Gender: Date of : Age: Pre-Arrival Type: EMS ETA: 03/10/2020 14:15:00 EST Primary Care Physician: Presenting Problem: Pre-Arrival User: Neil Vázquez RN Referring Source: Location: 1 [facility] Emergency Department [address] [place] [address] Notes: Vital Signs: Doctor Call Back: DNR Status: Miscellaneous Issues: Normal [facility] ED Progress Noteon 0 ED Progress Note report not put in by previous rn pt here for syncopal episode after diarrhea episode pt has hx of afib. pt covid+ report called to neil silva will come get pt Normal [facility] FERRITINon 03-10-2020 Ferritin [Mass/Vol] 32 ng/mL Normal 8-252 [facility] Comment on above: Performed By: #### 1 03673, [id number], [id number], [id number] #### [facility] Laboratory Services [address] [place] [address] (718) Gasoline Engine Assembler: Fahad Cast MD HEMOon 03-10-2020 DIFF? No Normal [facility] Comment on above: Performed By: #### 1 15062, 838411, 3718157 ####[facility] [address] [place] [phone]) [phone] Director: Fahad Cast MD Erythrocyte distribution width (RBC) [Ratio] 14.5 % Normal 11.5-14.5 [facility] Comment on above: Performed By: #### 1 31569, 796177, 5080461 ####[facility] [address]whf[address]46[address] [place], [place] [address]) [phone] Director: Fahad Cast MD Hematocrit (Bld) [Volume fraction] 35.8 % Low 36.0-46.0 [facility] Comment on above: Performed By: #### 1 49210, 559106, 3741630 ####[facility] [address] [place] [phone]) [phone] Director: Fahad Cast MD Hemoglobin (Bld) [Mass/Vol] 11.7 g/dL Low 12.0-16.0 [facility] Comment on above: Performed By: #### 1 70148, 283624, 8640486 ####[facility] Qnciitme39385 [place], [place] [address]) [phone] Director: Fahad Cast MD MCH (RBC) [Entitic mass] 29.4 pg Normal 27.0-34.0 [facility] Comment on above: Performed By: #### 1 10970, 510999, 2056903 ####[facility] [address] [place] [phone]) [phone] Director: Fahad Cast MD MCHC (RBC) [Mass/Vol] 32.7 g/dL Normal 32.0-37.0 [facility] Comment on above: Performed By: #### 1 22026, 933646, 2312437 ####[facility] [address]llcnr57258 [place] [address] Medical Director: Fahad Cast MD MCV (RBC) [Entitic vol] 89.8 fL Normal 80.0-100.0 [facility] Comment on above: Performed By: #### 1 82872, 880173, 9384071 ####[facility] [address]olbselk15771 [place] [address] Medical Director: Fahad Cast MD Nucleated RBC (Bld) [#/Vol] 0 /100WBC Normal [facility] Comment on above: Performed By: #### 1 06761, 607164, 9987927 ####[facility] Gjlgnqxt64896 [place] [address] Medical Director: Fahad Cast MD Platelet mean volume (Bld) [Entitic vol] 6.7 fL Low 7.4-10.4 [facility] Comment on above: Performed By: #### 1 36369, 877585, 1596862 ####[facility] [address]ykdu29108 [place] [address] Medical Director: Fahad Cast MD Platelets (Bld) [#/Vol] 252 x1000 Normal 150-450 [facility] Comment on above: Performed By: #### 1 01102, 594257, 0080915 ####[facility] [address]jxlwh30712 [place] [address] Medical Director: Fahad Cast MD RBC (Bld) [#/Vol] 3.99 x10 Low 4.20-5.40 [facility] Comment on above: Result Comment: Note : RBC morphology is normal unless otherwise stated. Evaluation performed only if differential is requested. Performed By: #### 1 21169, 971080, 1874073 ####[facility] [address]ueok11085 [place] [address] Medical Director: Fahad Cast MD WBC (Bld) [#/Vol] 8.3 10*3/uL Normal [facility] Comment on above: Performed By: #### 1 40926, 998998, 0773928 ####[facility] [address]fxev56813 [place] [address] Medical Director: Fahad Cast MD WBC (Bld) [#/Vol] 8.3 x10 Normal 4.5-11.0 [facility] Comment on above: Performed By: #### 1 55964, 671555, 2925779 ####[facility] Ymvlxmsx02269 [place] [address] Medical Director: Fahad Cast MD History and [...] (MAR 10:05) SBP 105 mmHg (MAR 10 16:00) DBP [...] ppx: On Eliquis OT MESA on Normal [facility] LACTATEon 03-10-2020 Lactate [Moles/Vol] 1.8 mmol/L Normal 0.4-2.0 [facility] Comment on above: Performed By: #### 1 35510 #### [facility] Services [address] [place] [address] Gasoline Engine Assembler: Fahad Cast MD LIPon 03-10-2020 Lipase [Catalytic activity/Vol] 135 unit/L Normal 73-393 [facility] Comment on above: Performed By: #### 1 89321, 136835, 929503 ####[facility] [address]mbc96632 [place] [address] Medical Director: Fahad Cast MD MG LEVELon 03-10-2020 Magnesium [Mass/Vol] 1.9 mg/dL Normal 1.6-2.6 [facility] Comment on above: Performed By: #### 1 00387, 806366, 528286 ####[facility] Hesdagwg84953 [place] [address] Medical Director: Fahad Cast MD PCTon 03-10-2020 Procalcitonin <0.05 Normal [facility] Comment on above: Result Comment: INTE [...] or septic shock. Performed By: #### 1 66975, [id number], :[id number], 8634529 #### [facility] Services [address] [place] [address] Gasoline Engine Assembler: Fahad Cast MD TROPONINon 03-10-2020 Troponin I.cardiac [Mass/Vol] ng/mL Normal 0.000-0.099 [facility] Comment on above: Result Comment: This test is a quantitative determination of cardiac troponin I. High levels of serum biotin may interfere with this test. Performed By: #### 1 01904, 937431, 615327 ####[facility] [address] [place] [phone] Medical Director: Fahad Cast MD XR CHEST [...] by: Monae Hernandez MD 03/10/2020 1:58 PM LUMBER CARRIER OPERATOR Technologist: THANG JAMES Dictated By: MONAE HERNANDEZ MD Signed By: MONAE HERNANDEZ MD Signed Out: 03/10/20 14:58:26 Normal [facility] Vital Signs Date Time Vital Sign Value Performing Clinician Facility 06-22-2024 12:54-0500 Blood Pressure Location Maria E Gutierreza [facility] 06-22-2024 12:54-0500 Diastolic blood pressure 55 mm[Hg] Maria E Gutierreza [facility] 06-22-2024 12:54-0500 Heart rate 56 /min Maria E Gutierreza [facility] 06-22-2024 12:54-0500 Respiratory rate 18 /min Maria E Gutierreza [facility] 06-22-2024 12:54-0500 Systolic blood pressure 125 mm[Hg] Maria E Jacqui [facility] 05-09-2024 09:17-0500 Body height 165.1 cm [facility] 05-09-2024 09:17-0500 Body mass index (BMI) [Ratio] 29.1 kg/m2 [facility] 05-09-2024 09:17-0500 Body weight 79.37 kg [facility] 05-09-2024 09:17-0500 Diastolic blood pressure 70 mm[Hg] [facility] 05-09-2024 09:17-0500 Heart rate 58 /min [facility] 05-09-2024 09:17-0500 Systolic blood pressure 116 mm[Hg] [facility] 04-30-2024 10:29-0500 Body height 165.1 cm [facility] 04-30-2024 10:29-0500 Body mass index (BMI) [Ratio] 29.1 kg/m2 [facility] 04-30-2024 10:29-0500 Body temperature 99.2 [degF] [facility] 04-30-2024 10:290500 Body weight 79.43 kg [facility] 04-30-2024 10:29-0500 Diastolic blood pressure 75 mm[Hg] [facility] 04-30-2024 10:29-0500 Heart rate 58 /min [facility] 04-30-2024 10:29-0500 Respiratory rate 16 /min [facility] 04-30-2024 10:29-0500 SaO2% (BldA) [Mass fraction] 94 % [facility] 04-30-2024 10:29-0500 Systolic blood pressure 146 mm[Hg] [facility] 02-01-2024 11:13-0400 Body height 165.1 cm [facility] 02-01-2024 11:13-0400 Body mass index (BMI) [Ratio] 28.3 kg/m2 [facility] 02-01-2024 11:13-0400 Body weight 77.11 kg [facility] 02-01-2024 11:13-0400 Diastolic blood pressure 72 mm[Hg] [facility] 02-01-2024 11:13-0400 Heart rate 60 /min [facility] 02-01-2024 11:13-0400 Systolic blood pressure 134 mm[Hg] [facility] 11-26-2023 14:08-0400 Body height 165.1 cm Miko Ohara MD Work Phone: [facility] 11-26-2023 14:08-0400 Body mass index (BMI) [Ratio] 27.96 kg/m2 Miko Ohara MD Work Phone: [facility] 11-26-2023 14:08-0400 Body temperature 97 [degF] Miko Ohara MD Work Phone: [facility] 11-26-2023 14:08-0400 Body weight 76.2 kg Miko Ohara MD Work Phone: [facility] 11-26-2023 09:56-0400 Body height 165.1 cm Mainor Post MD [facility]: [facility] 11-26-2023 09:56-0400 Body mass index (BMI) [Ratio] 28.12 kg/m2 Mainor Post MD [facility] 11-26-2023 09:56-0400 Body weight 76.66 kg Mainor Post MD Work Phone: [facility] 11-26-2023 09:56-0400 Diastolic blood pressure 76 mm[Hg] Mainor Post MD Work Phone: [facility] 11-26-2023 09:56-0400 Heart rate 56 /min Mainor Post MD Work Phone: [facility] 11-26-2023 09:56-0400 Systolic blood pressure 124 mm[Hg] Mainor Post MD Work Phone: [facility] 10-28-2023 08:41-0400 Body height 165.1 cm [facility] 10-28-2023 08:41-0400 Body mass index (BMI) [Ratio] 27.9 kg/m2 [facility] 10-28-2023 08:41-0400 Body weight 76.2 kg [facility] 10-28-2023 08:41-0400 Diastolic blood pressure 68 mm[Hg] [facility] 10-28-2023 08:41-0400 Heart rate 58 /min [facility] 10-28-2023 08:41-0400 Systolic blood pressure 106 mm[Hg] [facility] 08-20-2023 14:38-0400 Body height 165.1 cm Divine Mahmood Work Phone: [facility] 08-20-2023 14:38-0400 Body mass index (BMI) [Ratio] 27.96 kg/m2 Divine Cliftoncmichael Work Phone: [employer] [facility] 08-20-2023 14:38-0400 Body weight 76.2 kg Divine Mahmood Work Phone: [employer] [facility] 07-23-2023 14:45-0400 Body height 165.1 cm Divine Mahmood Work Phone: [employer] [facility] 07-23-2023 14:45-0400 Body mass index (BMI) [Ratio] 27.96 kg/m2 Divine Mahmood Work Phone: [employer] [facility] 07-23-2023 14:45-0400 Body weight 76.2 kg Divine Mahmood Work Phone: [employer] [facility] 2023 15:34-0500 Body temperature 97.9 [degF] Miko Ohara MD Work Phone: [facility] 2023 15:34-0500 Diastolic blood pressure 53 mm[Hg] Miko Ohara MD Work Phone: [employer] [facility] 2023 15:34-0500 Heart rate 80 /min Miko Ohara MD Work Phone: [employer] [facility] 2023 15:34-0500 Respiratory rate 16 /min Miko Ohara MD Work Phone: [employer] [facility] 2023 15:34-0500 SaO2% (BldA) [Mass fraction] 98 % Miko Ohara MD Work Phone: [employer] [facility] 2023 15:34-0500 Systolic blood pressure 110 mm[Hg] Miko Ohara MD Work Phone: [employer] [facility] 07-07-2023 16:39-0500 Body height 165.1 cm Miko Ohara MD Work Phone: [employer] [facility] 07-07-2023 16:39-0500 Body mass index (BMI) [Ratio] 28.02 kg/m2 Miko Ohara MD Work Phone: [employer] [facility] 07-07-2023 16:39-0500 Body weight 76.39 kg Miko Ohara MD Work Phone: [employer] [facility] 06-18-2023 14:31-0500 Body height 165.1 cm Miko Ohara MD Work Phone: [facility] 06-18-2023 14:31-0500 Body mass index (BMI) [Ratio] 28.12 kg/m2 Miko Ohara MD Work Phone: [facility] 06-18-2023 14:31-0500 Body weight 76.66 kg Miko Ohara MD Work Phone: [facility] 06-02-2023 11:19-0500 Body height 165.1 cm Donna Diaz MD Work Phone: [facility] 06-02-2023 11:19-0500 Body mass index (BMI) [Ratio] 28.12 kg/m2 Donna Diaz MD Work Phone: [facility] 06-02-2023 11:19-0500 Body weight 76.66 kg Donna Diaz MD Work Phone: [facility] 06-02-2023 11:19-0500 Diastolic blood pressure 68 mm[Hg] Donna Diaz MD Work Phone: [facility] 06-02-2023 11:19-0500 Heart rate 62 /min Donna Diaz MD Work Phone: [facility] 06-02-2023 11:19-0500 SaO2% (BldA) [Mass fraction] 99 % Donna Diaz MD Work Phone: [facility] 06-02-2023 11:19-0500 Systolic blood pressure 106 mm[Hg] Donna Diaz MD Work Phone: [facility] 05-14-2023 09:38-0500 Body height 165.1 cm Miko Ohara MD Work Phone: [facility] 05-14-2023 09:38-0500 Body mass index (BMI) [Ratio] 29.12 kg/m2 Miko Ohara MD Work Phone: [employer] 05-14-2023 09:38-0500 Body temperature 98.2 [degF] Miko Ohara MD Work Phone: [employer] 05-14-2023 09:38-0500 Body weight 79.38 kg Miko Ohara MD Work Phone: [employer] 10-30-2022 14:45-0400 Body height 165.1 cm Elliot Starks Other [employer] Other 10-30-2022 14:45-0400 Body mass index (BMI) [Ratio] 28.4 kg/m2 Elliot Starks Other [employer] Other 10-30-2022 14:45-0400 Body weight 77.43 kg Elliot Starks Other [employer] Other 10-30-2022 14:45-0400 Diastolic blood pressure 66 mm[Hg] Elliot Starks Other [employer] Other 10-30-2022 14:45-0400 Systolic blood pressure 123 mm[Hg] Elliot Starks Other [employer] Other 06-04-2022 11:30-0500 Body height 165.1 cm Elliot Starks Other [employer] Other 06-04-2022 11:30-0500 Body mass index (BMI) [Ratio] 28.29 kg/m2 Elliot Starks Other [employer] Other 06-04-2022 11:30-0500 Body weight 77.11 kg Elliot Starks Other [employer] Other 06-04-2022 11:30-0500 Diastolic blood pressure 64 mm[Hg] Elliot Starks Other [employer] Other 06-04-2022 11:30-0500 SaO2% (BldA) [Mass fraction] 99 % Elliot Raudel Other [employer] Other 06-04-2022 11:30-0500 Systolic blood pressure 104 mm[Hg] Elliot Starks Other [employer] Other Encounters Encounter Date Encounter Type Care Provider Facility Start: 07-20-2024 ambulatory Alfreda Miller Facility[facility] [place] Start: 06-30-2024 End: 07-06-2024 Refill Michael Castanon OIL FIELD TESTER-TECHNICIAN [employer] Work Phone: [facility] Comment on above: Med Refill Start: 06-22-2024 End: 06-22-2024 ambulatory Maria E Jacqui Facility[facility] Start: 06-22-2024 End: 06-22-2024 Lab Drop off Maria E Osman [facility] Start: 06-22-2024 End: 06-22-2024 ambulatory Maria E Osman Facility:[facility] Start: 06-22-2024 End: 06-22-2024 Patient encounter procedure Maria E Osman [facility] Start: 06-21-2024 End: 06-21-2024 ambulatory [facility] Work Phone: Start: 06-21-2024 End: 06-21-2024 Patient encounter procedure [facility] Work Phone: Start: 05-11-2024 Non-patient / Non-visit [facility] Work Phone: Start: 05-09-2024 End: 05-09-2024 ambulatory [facility] Work Phone: Start: 05-09-2024 End: 05-09-2024 Patient encounter procedure [facility] Work Phone: Start: 04-30-2024 End: 04-30-2024 Patient encounter procedure [facility] Work Phone: Start: 04-04-2024 End: 04-04-2024 ambulatory Daisy Liz MD Facility:[facility] Start: 02-01-2024 End: 02-01-2024 ambulatory [facility] Work Phone: Start: 02-01-2024 End: 02-01-2024 Patient encounter procedure [facility] Work Phone: Start: 01-02-2024 End: 01-05-2024 Refill Rosangela Montague OIL FIELD TE[employer]-TECHNICIAN [employer] Work Phone: [facility] Comment on above: Med Refill Start: 12-14-2023 End: 12-14-2023 ambulatory Daisy Liz MD Facility: [facility] Start: 11-26-2023 End: 11-26-2023 Subsequent hospital visit by physician Miko Ohara MD Work Phone: [facility] Start: 11-26-2023 End: 11-26-2023 Office outpatient visit 15 minutes Miko Ohara MD Work Phone: [facility] Comment on above: Hx of total hip arth roplasty, right (Primary Dx) Paroxysmal atrial fi brillation (CMS-HCC) (Primary Dx); Unstable angina (CMS-HCC); SOB (shortness of breath) Start: 11-25-2023 End: 11-25-2023 Telephone encounter [facility] Start: 10-28-2023 End: 10-28-2023 ambulatory [facility] Work Phone: Start: 10-28-2023 End: 10-28-2023 Patient encounter procedure [facility] Work Phone: Start: 10-19-2023 End: 10-26-2023 Refill Mike Craft MD Work Phone: [facility] Comment on above: Med Refill Start: 09-30-2023 End: 10-01-2023 ambulatory ANDREW CHOI [facility] Start: 09-17-2023 Telephone encounter Matt Duron Hematology/Oncology Comment on above: Yearly Exam With Shane rodriguez Start: 08-20-2023 End: 08-20-2023 Subsequent hospital visit by physician Divine Mahmood Work Phone: [facility] Start: 08-20-2023 [facility] Start: 08-20-2023 End: 08-20-2023 Postop follow up visit related to original px Divine Mahmood Work Phone: [facility] Comment on above: Right hip pain (Prim hayden Dx) Start: 08-20-2023 [facility] Start: 08-12-2023 End: 08-12-2023 [facility] Start: 08-10-2023 End: 08-13-2023 Refill Divine HANEY Work Phone: [facility] Comment on above: Med Refill Start: 07-23-2023 End: 07-23-2023 Postop follow up visit related to original px Divine Mahmood Work Phone: [facility] Comment on above: Tear of gluteus mini mus tendon, right, initial encounter (Primary Dx) Start: 07-23-2023 End: 07-23-2023 Subsequent hospital visit by physician Divine Mahmood Work Phone: [facility] Start: 07-23-[address] [facility] Start: 07-17-2023 Refill Mike galloway MD Work Phone: [facility] Comment on above: Med Refill Start: 07-15-2023 End: 07-16-2023 Emergency department patient visit EILEEN BLANTON [facility] Start: 07-15-2023 Telephone encounter [facility] Start: 07-15-2023 End: 07-15-2023 Emergency department patient visit ELLIOT STARKS [facility] Start: 07-07-2023 End: 2023 Encounter for other preprocedural examination [facility] Start: 07-07-2023 End: 2023 Evaluation and management of inpatient Miko Ohara MD Work Phone: [facility] Comment on above: Status post revision of total hip Start: 07-07-2023 End: 2023 Patient encounter status Miko Ohara MD Work Phone: [facility] Start: 07-01-2023 Patient encounter status [facility] Start: 06-25-2023 ambulatory [facility] Start: 06-19-2023 Telephone encounter Jacqueline Sparrow RN [facility] Comment on above: Pre op clearance Start: 06-18-2023 End: 06-18-2023 Office outpatient visit 40 minutes Miko Ohara MD Work Phone: [facility] Comment on above: Right hip pain (Prim hayden Dx) Start: 06-18-2023 ambulatory [facility] Start: 06-08-2023 End: 06-08-2023 ambulatory Daisy Liz MD Facility: [facility] Start: 06-02-2023 End: 06-02-2023 Office outpatient visit 25 minutes Donna Diaz MD Work Phone: [facility] Comment on above: Paroxysmal atrial fi brillation (CMS-HCC) (Primary Dx); Primary hypertension; Chronic coronary artery disease Start: 06-02-2023 End: 06-02-2023 ambulatory DONNA DIAZ [facility] Start: 06-01-2023 ambulatory [facility] Start: 05-28-2023 ambulatory [facility] Start: 05-25-2023 End: 05-25-2023 ambulatory Daisy Liz MD Facility:[facility] Start: 05-18-2023 End: 05-18-2023 ambulatory Daisy Liz MD Facility:[facility] Start: 05-14-2023 ambulatory MIKO OHARA [facility] Start: 05-14-2023 End: 05-14-2023 Office outpatient new 30 minutes Miko Ohara MD Work Phone: [facility] Comment on above: Pain in prosthetic j oint, initial encounter (Primary Dx); Primary osteoarthritis of right hip Start: 05-14-2023 End: 05-14-2023 Subsequent hospital visit by physician Miko Ohara MD Work Phone: [facility] Start: 05-14-2023 ambulatory [facility] Start: 03-30-2023 (Televisit) Televisit Elliot Starks [facility] Start: 03-30-2023 End: 03-30-2023 ambulatory Elliot Starks Other [employer] Other Start: 02-11-2023 End: 02-11-2023 Patient encounter procedure Alfreda Miller [facility] Start: 12-29-2022 Preoperative state Donna franks MD Work Phone: [facility] Start: 11-17-2022 End: 11-17-2022 ambulatory Elliot Starks Other [employer] Other Start: 11-17-2022 Telephone encounter Elliot Starks [facility] Start: 10-30-2022 End: 10-30-2022 ambulatory Elliot Starks Other [employer] Other Start: 10-30-2022 Office outpatient vi sit 15 minutes Elliot Starks [facility] Start: 10-29-2022 End: 10-29-2022 ambulatory Elliot Starks Other [employer] Other Start: 10-29-2022 Telephone encounter Elliot Starks [facility] Start: 10-27-2022 Nursing evaluation o f patient and report Elliot Starks [facility] Start: 10-27-2022 End: 10-27-2022 ambulatory Elliot Starks [employer] Other Start: 10-27-2022 End: 10-27-2022 Departed Referred MD Elliot Starks Work Phone: [facility] [place] Work Phone: Start: 09-11-2022 Telephone encounter Matt Duron Hematology/Oncology Comment on above: Orders Start: 08-11-2022 End: 08-11-2022 ambulatory Elliot Starks Other [employer] Other Start: 08-11-2022 Nursing evaluation o f patient and report Elliot Starks [facility] Start: 07-17-2022 (Televisit) Televisit Elliot Dela Cruz [facility] Start: 07-17-2022 End: 07-17-2022 ambulatory Elliot Starks Other [employer] Other Start: 06-23-2022 End: 06-23-2022 ambulatory Elliot Starks Other [employer] Other Start: 06-23-2022 Nursing evaluation o f patient and report Elliot Starks [facility] Start: 06-09-2022 End: 06-09-[address] ELLIOT STARKS Facility: Start: 06-06-2022 End: 06-06-2022 ambulatory Elliot Starks Other [employer] Other Start: 06-06-2022 Telephone encounter Elliot Starks [facility] Start: 06-04-2022 End: 06-04-2022 ambulatory Elliot Starks Other [employer] Other Start: 06-04-2022 Office outpatient vi sit 25 minutes Elliot Starks [facility] Start: 05-21-2022 End: 05-21-2022 ambulatory Elliot Starks Other [employer] Other Start: 05-21-2022 Telephone encounter Elliot Starks [facility] Start: 04-26-2022 End: 04-26-[address] ELLIOT STARKS Facility:[facility] Start: 04-14-2022 End: 04-14-[address] ELLIOT STARKS Facility: Start: 12-18-2021 End: 12-18-2021 ambulatory Melchor [place] Facility:[facility] Start: 10-03-2021 Telephone encounter Andrew black MD Work Phone: Hematology/Oncology Comment on above: Lab Orders Start: 09-26-2021 Telephone encounter Mikaela jimenez RN Work Phone: Hematology/Oncology Comment on above: Radiology Mammogram Start: 12-02-2016 End: 12-03-2016 Ambulatory DEFAULT PHYSICIAN Facility:[facility] Procedures Date Procedure Procedure Detail Performing Clinician Start: 2023 Basic metabolic pane l calcium total Chance Mahoney MD Work Phone: Start: 2023 Complete blood count with white cell differential, automated Paula Fitzpatrick APRN-TECHNICIAN [employer] Work Phone: Start: 07-07-2023 Cultyp nuc acid amp prb cult/isolate ea orgnism Chance Mahoney MD Work Phone: Start: 07-07-2023 Radiologic examinati on pelvis 1/2 views Paula Fitzpatrick APRN-TECHNICIAN [employer] Work Phone: Start: 07-07-2023 Cell count miscellan [...] 07-07-2023 Blood group typing, RH phenotyping Larissa Ayo PA-C Work Phone: Start: 06-02-2023 Ecg routine [...] Treatment Date Care Activity Detail Author Start: 11-25-2024 Adult BMI Screening Adult BMI Screen ing [facility] Start: 11-25-2024 Tobacco Screening Tobacco Screening [facility] Start: 09-29-2024 Adult BMI Screening Adult BMI Screen ing [facility] Start: 08-11-2024 Adult BMI Screening Adult BMI Screen ing [facility] Start: 08-11-2024 Tobacco Screening Tobacco Screening [facility] Start: 07-14-2024 Tobacco Screening Tobacco Screening [facility] Start: 07-14-2024 End: 07-14-2024 Patient encounter procedure 07/14/2024 11:20 AM EDT Office Visit [facility] [address] [place] [id number] Miko Ohara MD [address] [place] [address] [facility] Start: 07-07-2024 Potassium [Moles/vol ume] in Serum or Plasma POTASSIUM [facility] Start: 06-02-2024 Adult BMI Screening Adult BMI Screen ing [facility] Start: 06-02-2024 Tobacco Screening Tobacco Screening [facility] Start: 02-16-2024 End: 02-16-2024 Patient encounter procedure 02/16/2024 11:00 AM EDT [facility] [address] [place] [address] Sheridan Reyes MD [address] [place] [address] [facility] Start: 01-03-2024 COVID-19 Vaccine () COVID-19 Vaccine () [facility] Start: 01-03-2024 COVID-19 Vaccine ( season) COVID-19 Vaccine ( season) [facility] Start: 01-03-2024 Influenza vaccination [facility] Start: 11-26-2023 End: 11-26-2023 Patient encounter procedure [facility] Start: 10-09-2023 DIABETES SCREEN DIABETES SCREEN [facility] Start: 10-09-2023 Diabetes Screening Diabetes Screenin g [facility] Start: 08-20-2023 End: 08-20-2023 Patient encounter procedure 08/20/2023 2:30 PM EDT Office Visit [facility] [address] [place] [id number] Divine Mahmood [address] [place] [address] [facility] Start: 08-12-2023 End: 08-12-2023 Patient encounter procedure 08/12/2023 8:00 AM EDT Office Visit [facility] [address] [place] [phone] Miko Vasquez, OIL FIELD TESTER-TECHNICIAN [employer] [address] [place], [place] [id number] [facility] Start: 07-23-2023 End: 07-23-2023 Patient encounter procedure 07/23/2023 2:30 PM EDT Office Visit [facility] [address] [place] [id number] Divine Mahmood [address] [place] [id number] [facility] Start: 07-07-2023 End: 07-07-2023 Evaluation and management of inpatient [facility] Comment on above: Tear of rotator [...] 06/25/2023 10:00 AM EST Pre-Operative Nurse Assessment [facility] [address] [place] [id number] Pre-op testing (Primary Dx); Essential (primary) hypertension; Abnormal finding of blood chemistry, unspecified; Abnormal coagulation profile [facility] Comment on above: Pre-op testing (Prim hayden Dx); Essential (primary) hypertension; Abnormal finding of blood chemistry, unspecified; Abnormal coagulation profile Start: 06-13-2023 COVID-19 Vaccine ( season) COVID-19 Vaccine () [facility] [facility] Start: 05-28-2023 End: 05-28-2023 Patient encounter procedure 05/28/2023 11:00 AM EST Office Visit [facility] [address] [facility] [place] [address] Antelmo Richey, DO [address] [place] [address] [facility] Start: 05-14-2023 End: 05-14-2024 MR Hip - right WO contrast MRI HIP RIGHT WITHOUT CONTRAST Imaging Routine Pain in prosthetic joint, initial encounter Expected: 05/14/2023, Expires: 05/14/2024 [facility] Comment on above: Expected: 05/14/2023 , Expires: 05/14/2024 Start: 05-04-2023 Advance Directive Discussion Advance Directive Discussion [facility] Start: 05-04-2023 Behavioral Health Screening Behavioral Health Screening [facility] Start: 01-02-2023 Covid-19 Vaccine ( season) Covid-19 Vaccine ( season) [facility] Start: 01-02-2023 COVID-19 VACCINE ( season) COVID-19 VACCINE ( season) [facility] Start: 01-02-2023 Influenza vaccination INFLUENZA (Sea son Ended) [facility] Start: 10-27-2022 Bacteria identified in Urine by Culture [facility] Start: 05-04-2022 ADVANCE DIRECTIVE DISCUSSION ADVANCE DIRECTIVE DISCUSSION [facility] Start: 05-04-2022 DEPRESSION ASSESSMENT DEPRESSION ASS ESSMENT [facility] Start: 04-08-2022 Screening for malign ant neoplasm of colon Colonoscopy [facility] Start: 01-02-2022 Influenza vaccination INFLUENZA (Sea son Ended) [facility] Start: 10-07-2021 End: 12-07-2021 Cancer Ag 27-29 [Units/volume] in Serum or Plasma CA 27.29 BLOOD Lab Routine Malignant neoplasm of upper-outer quadrant of left breast in female, estrogen receptor positive (HCC) Expected: 10/07/2021, Expires: 12/07/2021 [facility] Work Phone: Comment on above: Expected: 10/07/2021 , Expires: 12/07/2021 Start: 10-07-2021 End: 12-07-2021 CBC W Auto Differential panel - Blood CBC + DIFF Lab Routine Malignant neoplasm of upper-outer quadrant of left breast in female, estrogen receptor positive (HCC) Expected: 10/07/2021, Expires: 12/07/2021 [facility] Work Phone: Comment on above: Expected: 10/07/2021 , Expires: 12/07/2021 Start: 10-07-2021 End: 12-07-2021 Comprehensive metabolic 2000 panel - Serum or Plasma COMP METABOLIC PANEL Lab Routine Malignant neoplasm of upper-outer quadrant of left breast in female, estrogen receptor positive (HCC) Expected: 10/07/2021, Expires: 12/07/2021 [facility] Work Phone: Comment on above: Expected: 10/07/2021 , Expires: 12/07/2021 Start: 09-25-2021 Mammography MAMMOGRAM [facility] Start: 05-04-2021 ADVANCE DIRECTIVE DISCUSSION ADVANCE DIRECTIVE DISCUSSION [facility] Start: 11-17-2020 COVID-19 VACCINE (3 - Booster for Pfizer series) COVID-19 VACCINE (3 - Booster for Pfizer series) [facility] Start: 10-06-2020 Adult depression screening assessment DEPRESSION SCREENING [facility] Start: 08-15-2020 COVID-19 VACCINE (3 - Booster for Pfizer series) COVID-19 VACCINE (3 - Booster for Pfizer series) [facility] Start: 01-05-2019 Pneumococcal Vaccine : 65+ (2 of 2 - PCV) Pneumococcal Vaccine: 65+ (2 of 2 - PCV) [facility] Start: 01-05-2019 PNEUMOCOCCAL: 65+ (2 - PCV) PNEUMOCOCCAL: 65+ (2 - PCV) [facility] Start: 07-07-2012 BONE DENSITY BONE DENSITY [facility] Start: 07-07-2012 Fall Risk Screening Fall Risk Screen ing [facility] Start: 07-07-2012 Screening for osteoporosis Bone Density Screening [facility] Start: 2007 RSV Vaccine (1 - 1-d ose 60+ series) RSV Vaccine (1 - 1-dose 60+ series) [facility] Start: 07-07-1997 Administration of varicella zoster vaccine Zoster (Shingles) Vaccine (1 of 2) [facility] Start: 07-07-1997 SHINGRIX VACCINE (1 of 2) SHINGRIX VACCINE (1 of 2) [facility] Start: 07-07-1997 Zoster vaccine hzv l david for subcutaneous use ZOSTER (SHINGLES) VACCINE (1 of 2) [facility] Start: 07-07-1992 COLOGUARD (FIT-DNA) COLOGUARD (FIT-D NA) [facility] Start: 07-07-1992 Colonoscopy COLONOSCOPY [facility] Start: 07-07-1992 COLORECTAL CANCER SCREENING COLORECTAL CANCER SCREENING [facility] Start: 07-07-[address] COLONOGRAPHY [facility] Start: 07-07-1992 FECAL OCCULT BLOOD FECAL OCCULT BLOO D [facility] Start: 07-07-1992 LIPID SCREEN LIPID SCREEN [facility] Start: 07-07-1992 Screening for malign ant neoplasm of colon COLORECTAL CANCER SCREENING DISCUSSION [facility] Start: 07-07-1992 SIGMOIDOSCOPY SIGMOIDOSCOPY [facility] Start: 1987 Lipid panel LIPID SCREENING [facility] Start: 1987 Screening for malign ant neoplasm of breast MAMMOGRAM SCREENING DISCUSSION [facility] Start: 07-07-1968 Screening for malign ant neoplasm of cervix CERVICAL CANCER SCREENING DISCUSSION [facility] Start: 07-07-1966 DTaP,Tdap and Td Vaccines (1 - Tdap) DTaP,Tdap and Td Vaccines (1 - Tdap) [facility] Start: 07-07-1966 Third diphtheria, tetanus and acellular pertussis (DTaP) vaccination TDAP (ADULT) [facility] Start: 07-07-1966 Urine microalbumin profile [facility] Start: 07-07-1965 Adult BMI Follow Up Plan Adult BMI F ollow Up Plan [facility] Start: 07-07-1965 HEPATITIS C SCREENING HEPATITIS C SC REENING [facility] Start: 1959 Depression Screening Depression Scre ening [facility] Start: 07-07-1953 PNEUMOCOCCAL: 65+ (1 - PCV) PNEUMOCOCCAL: 65+ (1 - PCV) [facility] Start: 1947 Hepatitis C screening HEPATITI S C VIRUS SCREENING [facility] Start: 1947 Medicare Annual Well ness Visit Medicare Annual Wellness Visit [facility] Start: 1947 Potassium [Moles/vol ume] in Serum or Plasma POTASSIUM [facility] Start: 1947 Screening for osteoporosis DEXA SCAN DISCUSSION [facility] Start: 1947 Tetanus vaccination TETANUS [facility] ANAEROBE CULTURE [facility] Comment on above: Release Upon Orderin g for 1 Occurrences starting 07/07/2023 Bacterial culture an d sensitivity CULTURE WOUND Microbiology Routine 07/07/2023 2:27 PM EST [facility] BODY FLUID CELL COUNT BODY FLUID CELL COUNT Fluids Routine Tear of rotator cuff of right hip, initial encounter 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, initial encounter Release Upon Ordering for 1 Occurrences starting 07/07/2023 [facility] Comment on above: Release Upon Orderin g for 1 Occurrences starting 07/07/2023 End: 10-16-2024 DBT Breast - bilateral screening SHANE SCREENING [facility] Radiology Routine Encounter for screening mammogram for malignant neoplasm of breast 1 Occurrences starting 09/17/2023 until 10/16/2024 [facility] Work Phone: Comment on above: 1 Occurrences starti ng 09/17/2023 until 10/16/2024 End: 07-07-2023 Fungus identified in Unspecified specimen by Culture [employer] Comment on above: Release Upon Orderin g for 1 Occurrences starting 07/07/2023 One Time for 1 Occur rences starting 07/07/2023 until 07/07/2023 End: 10-26-2022 SHANE SCREENING W Y[facility]ANE SCREENING [facility] Radiology Routine Encounter for screening mammogram for malignant neoplasm of breast 1 Occurrences starting 09/26/2021 until 10/26/2022 [facility] Work Phone: Comment on above: 1 Occurrences starti ng 09/26/2021 until 10/26/2022 End: 10-11-2023 SHANE SCREENING W YAW SHANE SCREENING [facility] Radiology Routine Encounter for screening mammogram for malignant neoplasm of breast 1 Occurrences starting 09/11/2022 until 10/11/2023 [facility] Work Phone: Comment on above: 1 Occurrences starti ng 09/11/2022 until 10/11/2023 End: 07-07-2023 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 [employer] Comment on above: Release Upon Orderin g for 1 Occurrences starting 07/07/2023 One Time for 1 Occur rences starting 07/07/2023 until 07/07/2023 XR Pelvis and Hip - right Views XR HIP WITH PELVIS RIGHT Imaging Routine Primary osteoarthritis of right hip 05/14/2023 9:20 AM [facility] [employer] [facility] Work Phone: XR Pelvis and Hip - right Views XR HIP WITH PELVIS RIGHT Imaging Routine Tear of gluteus minimus tendon, right, initial encounter 07/23/2023 2:22 PM EDT [employer] [facility] XR Pelvis and Hip - right Views XR HIP WITH PELVIS RIGHT Imaging Routine Right hip pain 08/20/2023 3:17 PM EDT [employer] [facility] XR Pelvis and Hip - right Views XR HIP WITH PELVIS RIGHT Imaging Routine Hx of total hip arthroplasty, right 11/26/2023 1:53 PM EDT [employer] [facility] Immunizations Immunization Date Immunization Notes Care Provider Pablo Greenfield-07-2024 influenza virus vaccine, unspecified formulation Maria E Osman [facility] 02-10-2023 influenza virus vaccine, unspecified formulation Alfreda Lue [facility] 02-01-2022 influenza virus vaccine, unspecified formulation Alfreda Lue [facility] 08-13-2021 SARS-CoV-2 mRNA (lmctavcyccw-etka-tolqa se) vaccine Alfreda Lue [facility] 01-29-2021 SARS-CoV-2 (COVID-19 ) mRNA BNT-162b2 vax Alfreda Lue [facility] Comment on above: Result Comment: 2022: [id number] 06-20-2020 COVID-19 vaccine, ag e 12+ yr (PFIZER-BIONTECH - PURPLE TOP) Mikaela Thompson RN Work Phone: [facility] 05-28-2020 SARS-CoV-2 (COVID-19 ) mRNA BNT-162b2 vax Alfreda Lue [facility] 05-18-2020 COVID-19 vaccine, ag e 12+ yr (PFIZER-BIONTECH - PURPLE TOP) Mikaela Thompson RN Work Phone: [facility] 01-27-2020 influenza virus vaccine, split virus (incl. purified surface antigen) Elliot Starks Other [employer] Other 01-27-2020 influenza virus vaccine, unspecified formulation Alfreda Lue [facility] 01-20-2019 influenza virus vaccine, unspecified formulation Alfreda Lue [facility] 01-20-2019 influenza, high dose seasonal, preservative-free Mikaela Thompson RN Work Phone: [facility] 03-09-2018 influenza virus vaccine, unspecified formulation Alfreda Lue [facility] 01-05-2018 influenza virus vaccine, split virus (incl. purified surface antigen) Elliot Starks Other [facility] [email or web address] Other 01-05-2018 influenza virus vaccine, unspecified formulation Alfreda Lue [facility] 01-05-2018 influenza, high dose seasonal, preservative-free Mikaela Thompson RN Work Phone: [facility] 01-05-2018 pneumococcal polysaccharide vaccine, 23 valent Mikaela Thompson RN Work Phone: [facility] 02-25-2017 influenza virus vaccine, unspecified formulation Alfreda Lue [facility] 02-17-2017 pneumococcal polysaccharide vaccine, 23 valent Alfreda Lue [facility] 02-05-2017 influenza virus vaccine, split virus (incl. purified surface antigen) Elliot Starks Other [employer] [facility] [email or web address] Other 02-05-2017 influenza virus vaccine, unspecified formulation Alfreda Lue [facility] 02-05-2017 pneumococcal conjuga te vaccine, 13 valent Alfreda Lue [facility] 02-01-2002 pneumococcal polysaccharide vaccine, 23 valent Elliot Starks Other [facility] Payers Date Payer Category Payer Private Health Insurance 2022 Self-pay 2021 Medicare HMO [employer] MEDICARE [id number] 2014 Medicare AETNA MEDICARE A ETNA MEDICARE PPO [id number] 2014-Present [phone] [id number] [place] [id number] [facility] [id number] 2014 Medicare [id number] 1959 Medicare [id number] 1947 Unknown [id number] 2.16.840.1.873418.3.579.2. 593 1947 Unknown [id number] 2.16.840.1.115702.3.579.2. 593 1947 Unknown [id number] 2.16.840.1.195456.3.579.2. 593 1947 Unknown [id number] 2.16.840.1.280403.3.579.2. 718 1947 Unknown [id number] 2.16.840.1.190951.3.579.2. 1286 1947 Unknown [id number] 2.16.840.1.999492.3.579.2. 1286 8 Unknown [id number] 2.16.840.1.433298.3.579.2. 1286 1947 Unknown [id number] 2.16.840.1.979664.3.579.2. 1286 1947 Unknown [id number] 2.16.840.1.057502.3.579.2. 1286 1947 Unknown [id number] 2.16.840.1.829860.3.579.2. 983 1947 Unknown [id number] 2.16840.1.424049.3.579.2. 983 1947 Unknown [id number] 2.840.1.669138.3.579.2. 983 1947 Unknown [id number] 2.840.1.028464.3.579.2. 983 1947 Unknown [id number] 2.840.1.216606.3.579.2. 983 1947 Unknown [id number] 2.840.1.207957.3.579.2. 983 1947 Unknown [id number] 2.840.1.275306.3.579.2. 983 1947 Unknown [id number] 2.840.1.837865.3.579.2. 983 1947 Unknown [id number] 2.16840.1.650949.3.579.2. 983 1947 Unknown [id number] 2.16840.1.351444.3.579.2. 983 1947 Unknown [id number] 2.16840.1.418789.3.579.2. 983 1947 Unknown [id number] 2.16840.1.981586.3.579.2. 983 1947 Unknown [id number] 2.16.840.1.826819.3.579.2. 196 1947 Unknown [id number] 2.16.840.1.350287.3.579.2. 196 1947 Unknown [id number] 2.16.840.1.072025.3.579.2. 196 1947 Unknown [id number] 2.16.840.1.308426.3.579.2. 196 1947 Unknown [id number] 2.16.840.1.983829.3.579.2. 196 1947 Unknown [id number] 2.16.840.1.831409.3.579.2. 727 1947 Unknown [id number] 2.16.840.1.999691.3.579.2. 727 1947 Unknown [id number] 2.16.840.1.015705.3.579.2. 727 Private Health Insurance [employer]na [facility] [id number] Unknown Unknown [id number] 2.16.840.1.649580.3.579.2. 531 Social History Date Type Detail Facility Start: 12-03-2015 End: 11-26-2023 Tobacco smoking status KSIS Ex-smoker [facility] End: 12-05-1990 History of tobacco use Current smoker [facility] Start: 12-03-2015 End: 05-15-2020 Cigarettes smoked current (pack per day) - Reported 1 [facility] Start: 12-03-2015 End: 11-26-2023 Tobacco use and exposure Smokeless tobacco non-user [facility] Start: 10-08-2020 End: 11-26-2023 Alcohol intake Current drinker of alcohol (finding) [facility] Start: 1945 Sex Assigned At Not on file [facility] Start: 05-15-2020 End: 05-14-2023 Sex Assigned At [facility] End: 12-05-1990 History of tobacco use Cigarette Smoker [facility] Start: 1945 Sex Assigned At Female F [facility] Tobacco smoking status Never [facility] Start: 05-14-2023 Tobacco smoking stat us NHIS Never smoked tobacco [employer] [facility] Has the [employer], [employer], [employer], or water company threatened to shut off services in your home in past 12Mo No [facility] (I/We) worried wheth er (my/our) food would run out before (I/we) got money to buy more. Never true [employer] Start: 03-19-2017 End: 06-19-2023 Alcohol Comment social [facility] [employer] [facility] Start: 12-07-2014 End: 05-09-2024 Sex Female (finding) [facility] Start: 03-31-2022 [facility] Start: 05-09-2018 Gender identity Identifies as female gender (finding) [facility] [employer] [facility] Medical Equipment Procedure Code Equipment Code Equipment Origin al Text Equipment Identifier Dates Anchors, 5.5 Non Punching - [id number] Start: 07-07-2023 Anchors, 5.5 Non Punching - [id number] Start: 07-07-2023 Functional Status Date Assessment Result Facility 06-22-2024 Functional Status N/A [facility] 02-11-2023 Functional Status N/A [facility] Clinical Notes 09-26-2021 to 06-30-2024 Telephone Encounter - Mami Cifuentes RN - 06/30/2024 12:22 AM ESTTelephone Encounter - Mami Cifuentes RN - 06/30/2024 12:22 AM EST Note Date & Type Note Facility 06-30-2024 Miscellaneous Notes OV 11/26/2023 documented in this encounter [facility] 06-30-2024 Telephone encounter Note OV 11/26/2023 [facility] 06-22-2024 [facility] Discharg e instructions Patient Education 06/22/2024 15:04:23 Hematuria, Adult Hematuria, Adult Hematuria is blood in the urine. Blood may be visible in the urine, or it may be identified with a test. This condition can be caused by infections of the bladder, urethra, kidney, or prostate. Other possible causes include: Kidney stones. Cancer of the urinary tract. Too much calcium in the urine. Conditions that are passed from parent to child (inherited conditions). Exercise that requires a lot of energy. Infections can usually be treated with medicine, and a kidney stone usually will pass through your urine. If neither of these is the cause of your hematuria, more tests may be needed to identify the cause of your symptoms. It is very important to tell your health care provider about any blood in your urine, even if it is painless or the blood stops without treatment. Blood in the urine, when it happens and then stops and then happens again, can be a symptom of a very serious condition, including cancer. There is no pain in the initial stages of many urinary cancers. Follow these instructions at home: Medicines Take tzxw-nxb-lzcpuss and prescription medicines only as told by your health care provider. If you were prescribed an antibiotic medicine, take it as told by your health care provider. Do not stop taking the antibiotic even if you start to feel better. Eating and drinking Drink enough fluid to keep your urine pale yellow. It is recommended that you drink 3 4 quarts (2.8 3.8 L) a day. If you have been diagnosed with an infection, drinking cranberry juice in addition to large amounts of water is recommended. Avoid caffeine, tea, and carbonated beverages. These tend to irritate the bladder. Avoid alcohol because it may irritate the prostate (in males). General instructions If you have been diagnosed with a kidney stone, follow your health care provider's instructions about straining your urine to catch the stone. Empty your bladder often. Avoid holding urine for long periods of time. If you are female: ?After a bowel movement, wipe from front to back and use each piece of toilet paper only once. ?Empty your bladder before and after sex. Pay attention to any changes in your symptoms. Tell your health care provider about any changes or any new symptoms. It is up to you to get the results of any tests. Ask your health care provider, or the department that is doing the test, when your results will be ready. Keep all follow-up visits. This is important. Contact a health care provider if: You develop back pain. You have a fever or chills. You have nausea or vomiting. Your symptoms do not improve after 3 days. Your symptoms get worse. Get help right away if: You develop severe vomiting and are unable to take medicine without vomiting. You develop severe pain in your back or abdomen even though you are taking medicine. You pass a large amount of blood in your urine. You pass blood clots in your urine. You feel very weak or like you might faint. You faint. Summary Hematuria is blood in the urine. It has many possible causes. It is very important that you tell your health care provider about any blood in your urine, even if it is painless or the blood stops without treatment. Take hepu-jny-xevqinl and prescription medicines only as told by your health care provider. Drink enough fluid to keep your urine pale yellow. This information is not intended to replace advice given to you by your health care provider. Make sure you discuss any questions you have with your health care provider. Document Revised: 12/19/2020 Document Reviewed: 12/19/2020 [employer] Patient Education 2023 [employer]. 06/22/2024 15:04:17 Overactive Bladder, Adult Overactive Bladder, Adult Overactive bladder is a condition in which a person has a sudden and frequent need to urinate. A person might also leak urine if he or she cannot get to the bathroom fast enough (urinary incontinence). Sometimes, symptoms can interfere with work or social activities. What are the causes? Overactive bladder is associated with poor nerve signals between your bladder and your brain. Your bladder may get the signal to empty before it is full. You may also have very sensitive muscles that make your bladder squeeze too soon. This condition may also be caused by other factors, such as: Medical conditions: ?Urinary tract infection. ?Infection of nearby tissues. ?Prostate enlargement. ?Bladder stones, inflammation, or tumors. ?Diabetes. ?Muscle or nerve weakness, especially from these conditions: ?A spinal cord injury. ?Stroke. ?Multiple sclerosis. ?Parkinson's disease. Other causes: ?Surgery on the uterus or urethra. ?Drinking too much caffeine or alcohol. ?Certain medicines, especially those that eliminate extra fluid in the body (diuretics). ?Constipation. What increases the risk? You may be at greater risk for overactive bladder if you: Are an older adult. Smoke. Are going through menopause. Have prostate problems. Have a neurological disease, such as stroke, dementia, Parkinson's disease, or multiple sclerosis (MS). Eat or drink alcohol, spicy food, caffeine, and other things that irritate the bladder. Are overweight or obese. What are the signs or symptoms? Symptoms of this condition include a sudden, strong urge to urinate. Other symptoms include: Leaking urine. Urinating 8 or more times a day. Waking up to urinate 2 or more times overnight. How is this diagnosed? This condition may be diagnosed based on: Your symptoms and medical history. A physical exam. Blood or urine tests to check for possible causes, such as infection. You may also need to see a health care provider who specializes in urinary tract problems. This is called a urologist. How is this treated? Treatment for overactive bladder depends on the cause of your condition and whether it is mild or severe. Treatment may include: Bladder training, such as: ?Learning to control the urge to urinate by following a schedule to urinate at regular intervals. ?Doing Kegel exercises to strengthen the pelvic floor muscles that support your bladder. Special devices, such as: ?Biofeedback. This uses sensors to help you become aware of your body's signals. ?Electrical stimulation. This uses electrodes placed inside the body (implanted) or outside the body. These electrodes send gentle pulses of electricity to strengthen the nerves or muscles that control the bladder. ?Women may use a plastic device, called a pessary, that fits into the vagina and supports the bladder. Medicines, such as: ?Antibiotics to treat bladder infection. ?Antispasmodics to stop the bladder from releasing urine at the wrong time. ?Tricyclic antidepressants to relax bladder muscles. ?Injections of botulinum toxin type A directly into the bladder tissue to relax bladder muscles. Surgery, such as: ?A device may be implanted to help manage the nerve signals that control urination. ?An electrode may be implanted to stimulate electrical signals in the bladder. ?A procedure may be done to change the shape of the bladder. This is done only in very severe cases. Follow these instructions at home: Eating and drinking Make diet or lifestyle changes recommended by your health care provider. These may include: ?Drinking fluids throughout the day and not only with meals. ?Cutting down on caffeine or alcohol. ?Eating a healthy and balanced diet to prevent constipation. This may include: ?Choosing foods that are high in fiber, such as beans, whole grains, and fresh fruits and vegetables. ?Limiting foods that are high in fat and processed sugars, such as fried and sweet foods. Lifestyle Lose weight if needed. Do not use any products that contain nicotine or tobacco. These include cigarettes, chewing tobacco, and vaping devices, such as e-cigarettes. If you need help quitting, ask your health care provider. General instructions Take zkya-sww-tnesuag and prescription medicines only as told by your health care provider. If you were prescribed an antibiotic medicine, take it as told by your health care provider. Do not stop taking the antibiotic even if you start to feel better. Use any implants or pessary as told by your health care provider. If needed, wear pads to absorb urine leakage. Keep a log to track how much and when you drink, and when you need to urinate. This will help your health care provider monitor your condition. Keep all follow-up visits. This is important. Contact a health care provider if: You have a fever or chills. Your symptoms do not get better with treatment. Your pain and discomfort get worse. You have more frequent urges to urinate. Get help right away if: You are not able to control your bladder. Summary Overactive bladder refers to a condition in which a person has a sudden and frequent need to urinate. Several conditions may lead to an overactive bladder. Treatment for overactive bladder depends on the cause and severity of your condition. Making lifestyle changes, doing Kegel exercises, keeping a log, and taking medicines can help with this condition. This information is not intended to replace advice given to you by your health care provider. Make sure you discuss any questions you have with your health care provider. Document Revised: 01/07/2021 Document Reviewed: 01/07/2021 [employer] Patient Education 2023 [place]. Follow Up Care 06/22/2024 10:24:57 With:Paul VILLEGAS, Alfreda M., URL, URO Address: When: Unknown Comments:F/U pending cystoscopy [facility] Angie 06-22-2024 Note Patient Education Obstetrics and Gynecology Overactive Bladder, Adult Overactive bladder is a condition in which a person has a sudden and frequent need to urinate. A person might also leak urine if he or she cannot get to the bathroom fast enough (urinary incontinence). Sometimes, symptoms can interfere with work or social activities. What are the causes? Overactive bladder is associated with poor nerve signals between your bladder and your brain. Your bladder may get the signal to empty before it is full. You may also have very sensitive muscles that make your bladder squeeze too soon. This condition may also be caused by other factors, such as: ??? Medical conditions: ? Urinary tract infection. ? Infection of nearby tissues. ? Prostate enlargement. ? Bladder stones, inflammation, or tumors. ? Diabetes. ? Muscle or nerve weakness, especially from these conditions: ? A spinal cord injury. ? Stroke. ? Multiple sclerosis. ? Parkinson's disease. ??? Other causes: ? Surgery on the uterus or urethra. ? Drinking too much caffeine or alcohol. ? Certain medicines, especially those that eliminate extra fluid in the body (diuretics). ? Constipation. What increases the risk? You may be at greater risk for overactive bladder if you: ??? Are an older adult. ??? Smoke. ??? Are going through menopause. ??? Have prostate problems. ??? Have a neurological disease, such as stroke, dementia, Parkinson's disease, or multiple sclerosis (MS). ??? Eat or drink alcohol, spicy food, caffeine, and other things that irritate the bladder. ??? Are overweight or obese. What are the signs or symptoms? Symptoms of this condition include a sudden, strong urge to urinate. Other symptoms include: ??? Leaking urine. ??? Urinating 8 or more times a day. ??? Waking up to urinate 2 or more times overnight. How is this diagnosed? This condition may be diagnosed based on: ??? Your symptoms and medical history. ??? A physical exam. ??? Blood or urine tests to check for possible causes, such as infection. You may also need to see a health care provider who specializes in urinary tract problems. This is called a urologist. How is this treated? Treatment for overactive bladder depends on the cause of your condition and whether it is mild or severe. Treatment may include: ??? Bladder training, such as: ? Learning to control the urge to urinate by following a schedule to urinate at regular intervals. ? Doing Kegel exercises to strengthen the pelvic floor muscles that support your bladder. ??? Special devices, such as: ? Biofeedback. This uses sensors to help you become aware of your body's signals. ? Electrical stimulation. This uses electrodes placed inside the body (implanted) or outside the body. These electrodes send gentle pulses of electricity to strengthen the nerves or muscles that control the bladder. ? Women may use a plastic device, called a pessary, that fits into the vagina and supports the bladder. ??? Medicines, such as: ? Antibiotics to treat bladder infection. ? Antispasmodics to stop the bladder from releasing urine at the wrong time. ? Tricyclic antidepressants to relax bladder muscles. ? Injections of botulinum toxin type A directly into the bladder tissue to relax bladder muscles. ??? Surgery, such as: ? A device may be implanted to help manage the nerve signals that control urination. ? An electrode may be implanted to stimulate electrical signals in the bladder. ? A procedure may be done to change the shape of the bladder. This is done only in very severe cases. Follow these instructions at home: Eating and drinking ??? Make diet or lifestyle changes recommended by your health care provider. These may include: ? Drinking fluids throughout the day and not only with meals. ? Cutting down on caffeine or alcohol. ? Eating a healthy and balanced diet to prevent constipation. This may include: ? Choosing foods that are high in fiber, such as beans, whole grains, and fresh fruits and vegetables. ? Limiting foods that are high in fat and processed sugars, such as fried and sweet foods. Lifestyle ??? Lose weight if needed. ??? Do not use any products that contain nicotine or tobacco. These include cigarettes, chewing tobacco, and vaping devices, such as e-cigarettes. If you need help quitting, ask your health care provider. General instructions ??? Take [id number] and prescription medicines only as told by your health care provider. ??? If you were prescribed an antibiotic medicine, take it as told by your health care provider. Do not stop taking the antibiotic even if you start to feel better. ??? Use any implants or pessary as told by your health care provider. ??? If needed, wear pads to absorb urine leakage. ??? Keep a log to track how much and when you drink, and whe (more content not included)... [facility] 04-30-2024 Evaluation note Diagnosis Onset Date Resolution Acute bilateral otitis media acute April 30, 024 9:54am [facility] Work Phone: 1(909) 429-181612-28-2024 Evaluation note* Diagnosis Onset Date Resolution Status Admit Date Acute bilateral otitis media acute April 30, 2024 9:54am Acute otitis media with effusion acute May 09 9:07am Insomnia acute May 09 025 9:07am Reaction, situational, acute , to stress acute May 09 9:07am [facility] Work Phone: 1(808) 170-607608-31-2024 Miscellaneous Notes* Telephone Encounter - Jacinta Neri RN - 01/02/2024 6:55 PM EDT Images from the original note were not included. Last OV 11/26/23 CBC/CMP 07/15/23 0 Result Notes Component Ref Range & Units 07/15/23 1147 12/29/22 1028 12/03/22 1050 12/03/22 1050 04/14/22 1119 04/07/22 1140 03/31/22 0921 Sodium 134 - 146 mmol/L 139 143 143 Potassium, Bld 3.5 - 5.0 mmol/L 4.0 3.9 3.9 3.8 3.4 Low Chloride 98 - 109 mmol/L 102 103 104 CO2 22 - 32 mmol/L 27 30 31 Anion gap 5 - 15 mmol/L 10 10 8 BUN 5 - 27 mg/dL 31 High 23 28 High Creatinine 0.40 - 1.00 mg/dL 1.21 High 1.04 High CM 0.98 CM Comment: METHOD TRACEABLE TO IDMS STANDARD Glucose 65 - 99 mg/dL 120 High 95 106 High Calcium 8.5 - 10.5 mg/dL 9.4 10.0 9.6 Total Protein 6.0 - 8.0 g/dL 6.8 Albumin 3.2 - 5.3 g/dL 3.5 Alkaline Phosphatase 39 - 130 U/L 52 AST 0 - 41 U/L 24 21 ALT 0 - 31 U/L 13 13 Total bilirubin 0.3 - 1.2 mg/dL 0.7 eGFR (CKD-EPI)non-race dependent >59 ml/min/1.73sq.m 46 Low 56 Low CM documented in this encounterC[facility] Telephone encounter Note* Telephone Encounter - Jacinta Neri RN - 01/02/2024 6:55 PM EDT Images from the original note were not included. Last OV 11/26/23 CBC/CMP 07/15/23 0 Result Notes Component Ref Range & Units 07/15/23 1147 12/29/22 1028 12/03/22 1050 12/03/22 1050 04/14/22 1119 04/07/22 1140 03/31/22 0921 Sodium 134 - 146 mmol/L 139 143 143 Potassium, Bld 3.5 - 5.0 mmol/L 4.0 3.9 3.9 3.8 3.4 Low Chloride 98 - 109 mmol/L 102 103 104 CO2 22 - 32 mmol/L 27 30 31 Anion gap 5 - 15 mmol/L 10 10 8 BUN 5 - 27 mg/dL 31 High 23 28 High Creatinine 0.40 - 1.00 mg/dL 1.21 High 1.04 High CM 0.98 CM Comment: METHOD TRACEABLE TO IDMS STANDARD Glucose 65 - 99 mg/dL 120 High 95 106 High Calcium 8.5 - 10.5 mg/dL 9.4 10.0 9.6 Total Protein 6.0 - 8.0 g/dL 6.8 Albumin 3.2 - 5.3 g/dL 3.5 Alkaline Phosphatase 39 - 130 U/L 52 AST 0 - 41 U/L 24 21 ALT 0 - 31 U/L 13 13 Total bilirubin 0.3 - 1.2 mg/dL 0.7 eGFR (CKD-EPI)non-race dependent >59 ml/min/1.73sq.m 46 Low 56 Low CM [employer] [id number] History of Present illness Narrative* Hal Fischer - 11/26/2023 2:00 PM EDT Ortho Nurse - Established Patient Intake Room#: 3 --- Patient presents today for 4 month follow-up of RTHA. Patient states that pain is 2/10today. Patient states that she is improved especially with PT, but is still limping more than she anticipated. Patient has been doing PT at [facility] and this helps, says next week is her last session. Patient states that she is due for nerve block in SI joint at [place] [facility] who she seesregularly, states that she needs approval from Dr. Ohara on this. Date: 11/26/2023 2:25 PM Patient: Bettie Burns MR#: [id number] : 1945 Age: 78 y.o. Referring Physician: [...] DVPRS (Defense and Veterans Pain Rating Scale) (Adult- Cognitively Intact) Pain Location: hip, right Select Pain Scale: DVPRS (Defense and Veterans Pain Rating Scale) (Adult- Cognitively Intact) Recent Labs Lab Results Component Value [...] LUMPECTOMY FOOT SURGERY HEART CATHETERIZATION no stents KS ENDOMETRIAL CRYOABLATION W/US & ENDOMETRIAL CR REMOVAL [...] x 1 month, then 2x/week for maintainence, [facility]/pharmacy #[id number], 165, cm, 02/11/23 10:41:00 EDT, Height/Length Dosing, [...] x 1 month, then 2x/week for maintainence, [facility]/pharmacy #[id number], 165, cm, 02/11/23 10:41:00 EDT, [...] cephalexin, latex, morphine, oxycodone, penicillins, and tramadol. * Miko Ohara MD - 11/26/2023 2:00 PM EDT HPI: Patient is here today for evaluation [...] of RTHA. Patient states that pain is 2/10today. Patient states that she is improved especially with PT, but is still limping more than she anticipated. Patient has been doing PT at [facility] and this helps, says next week is her last session. Patient states that she is due for nerve block in SI joint at [place] [facility] who she seesregularly, states that she needs approval from Dr. Ohara on this. Date: 11/26/2023 2:25 PM Patient: Bettie Burns MR#: [id number] : 1945 Age: 78 y.o. Referring Physician: [...] DVPRS (Defense and Veterans Pain Rating Scale) (Adult- Cognitively Intact) Pain Location: hip, right Select Pain Scale: DVPRS (Defense and Veterans Pain Rating Scale) (Adult- Cognitively Intact) Recent Labs Lab Results Component Value [...] FEMORAL COMPONENTS Right 07/07/2023 Laterality: Right; Surgeon: Mkio Ohara MD; Location: [facility] HIP REPLACEMENT 2021 ABLATION NERVE RADIOFREQUENCY PULSED 09/2018 for a-fib with [facility] APPENDECTOMY BREAST LUMPECTOMY FOOT SURGERY HEART CATHETERIZATION no stents KS ENDOMETRIAL CRYOABLATION W/US & ENDOMETRIAL CR REMOVAL [...] x 1 month, then 2x/week for maintainence, [facility]/pharmacy #[id number], 165, cm, 02/11/23 10:41:00 EDT, Height/Length Dosing, [...] x 1 month, then 2x/week for maintainence, [facility]/pharmacy #[id number], 165, cm, 02/11/23 10:41:00 EDT, [...] oxycodone, penicillins, and tramadol. documented in this [facility]07-25-[facility] History of Present illness Narrative* Mainor Post MD - 11/26/2023 10:30 AM EDT Bettie Burns Date of visit: 11/26/2023 Date of : 1945 Age: 78 y.o. Patient Active Problem List Diagnosis Paroxysmal [...] total) by mouth in the morning. 135 tablet3 baclofen (LIORESAL) 20 mg tablet Take 1 tablet (20 mg total) by mouth 3 (three) times a day. PRN ELIQUIS 5 mg tablet TAKE 1 TABLET TWICE A DAY 180 tablet 3 flecainide (TAMBOCOR) 50 mg tablet Take 1 tablet (50 mg total) by mouth in the morning and 1 tablet(50 mg total) before bedtime. Do all this for 360 days. 180 tablet 3 hydroCHLOROthiazide (HYDRODIURIL) 25 mg tablet take 1 tablet daily 90 tablet 3 lisinopriL (PRINIVIL,ZESTRIL) 20 mg tablet Take 1 [...] mEq total) by mouth in the morning. 90 tablet 2 temazepam (RESTORIL) 30 mg capsule Take 1 capsule (30 mg total) by mouth nightly. trospium (SANCTURA) 20 mg tablet Take 1 tablet (20 mg total) by mouth in the morning and 1 tablet (20 mg total) before bedtime. No current facility-administered medications for this visit. Chief Complaint Patient presents with Follow-up Hypertension Leg Swelling History of Present Illness Bettie Burns was seen in follow-up in the [place] office. Records are reviewed. She is a 78-year-old woman with a history of paroxysmal atrial fibrillation which became persistentshe has a history of essential hypertension. She underwent AFib ablation in 2018 but began having breakthrough episodes and became persistent. She underwent cardiac catheterization in 2021 which showed normal left ventricular systolic function and minimal nonobstructive coronary artery disease. Shewas started on flecainide and converted to sinus rhythm. She has been persistently bradycardiac although is not really symptomatic with that. She has not broken through with atrial fibrillation now for many months. She is tolerating her current medications she has not having excessive bleeding issues with Eliquis. She had hip replacement surgery 2 years ago and then earlier this year had repair of a tendon in her hip. She has been going to cardiac rehab but has been much less active and is still limited with pain walking with a cane etcetera. She has noted over the past couple of months that she has had a minimal amount of pedal edema particularly toward the end of the day. This is not overwhelming and is down in the morning. She denies undue breathlessness. She is modestly good about salt avoidance. Past Medical History: [place] hx of Arrhythmia 12/2016 ATRIAL FIBRILLATION Arthritis Breast [place] 11/14/2015 LEFT COVID-19 03/2020 History of bleeding ulcers Hypertension Migraines Pneumonia d/t covid Prolonged emergence from general anesthesia Visual impairment glasses No data recorded No data recorded No data recorded Past Surgical History: Procedure Laterality Date ABLATION OF DYSRHYTHMIC FOCUS Right nerve ablation, L4 and L5 Afib ablation with SHANICE - CRYO, Rhythmia, ICE N/A 09/28/2018 Performed by Amber Qu[facility]z [facility] at [facility] ARTHROSCOPY REPAIR ROTATOR CUFF SHOULDER Right 05/16/2020 Performed by Melchor Rivera DO at [facility] ARTHROSCOPY SHOULDER Right 05/16/2020 Performed by Melchor Rivera DO at [facility] BREAST BIOPSY Left 2016 BREAST LUMPECTOMY Left 11/14/2015 WITH RADIATION BREAST SURGERY Left 2012 lumpectomy CATARACT EXTRACTION CHOLECYSTECTOMY COLONOSCOPY Coronary angiogram and left ventricular gram/pressure N/A 08/08/2021 Performed by Bertram Lal MD at [facility] CARDIAC CATH LABS EYE SURGERY [...] on file Tobacco Use Smoking status: Former Current packs/day: 0.00 Types: Cigarettes Quit date: 05/06/1989 Years since quittin.5 Smokeless tobacco: Never Tobacco comments: quit in 1989 Vaping Use Vaping status: Never Used Substance and Sexual Activity Alcohol use: Yes Comment: social Drug use: No Sexual activity: Defer Other Topics Concern Caffeine Use Yes Comment: 05/05 cup Social History Narrative Not on file Social Determinants of Health Financial Resource Strain: Not on file Food Insecurity: No Food Insecurity (07/15/2023) Hunger Screening Food Insecurity - Worry: Never True Food Insecurity - Inability: Never True Transportation Needs: No Transportation Needs (07/07/2023) Received from [facility], [facility] PRAPARE - Transportation Lack of Transportation (Medical): No Lack of Transportation (Non-Medical): No Physical Activity: Not on file Stress: Not on file Social Connections: Not on file Interpersonal Safety: Not on file Housing Instability: Low Risk (07/07/2023) Received from [facility], [facility] Housing Stability Vital Sign Unable to Pay for Housing in the Last Year: No Number of Places Lived in the Last Year: 1 In the last 12 months, was there a time when you did not have a steady place to sleep or slept in jewettelter (including now)?: No Review of Systems Review of Systems Constitutional: Negative for chills, fever and malaise/fatigue. HENT: Negative for hearing loss, hoarse voice and nosebleeds. Eyes: Negative for blurred vision, double vision and redness. Respiratory: Negative for shortness of breath and sleep disturbances due to breathing. Endocrine: Negative for cold intolerance and heat intolerance. Hematologic/Lymphatic: Negative for bleeding problem. Does not bruise/bleed easily. Skin: Negative for color change, flushing, itching and nail changes. Musculoskeletal: Positive for joint swelling. Negative for falls, joint pain and myalgias. Gastrointestinal: Negative for heartburn, hematochezia and melena. Genitourinary: Negative for dysuria, frequency and hematuria. Neurological: Negative for dizziness, focal weakness, light-headedness, loss of balance and weakness. Psychiatric/Behavioral: Negative for altered mental status and memory loss. CARDIOVASCULAR: Please review HPI. Physical Examination General [...] bilaterally, no use of accessory muscles. Cardiovascular: RRR with normal S1 and S2 with no murmurs. Gastrointestinal: Soft, non-tender. Bowel sounds normal. Musculoskeletal: Trace peripheral edema. Neurologic: Oriented to time, person and place, affect appropriate. No focal/major motor defects noted. Psychiatric: Appropriate mood, memory and judgement. VITAL SIGNS: BP 124/76 Pulse 56 Ht 165.1 cm (5' 5 ) Wt 76.7 kg (169 lb) BMI 28.12 kg/m No orders of the defined types were placed in this encounter. There are no discontinued medications. IMPRESSIONS/PLAN There are no diagnoses linked to this encounter. 1. Paroxysmal atrial fibrillation. She converted to sinus rhythm on flecainide and seems to be maintaining this. I would continue the current atenolol. She is only bradycardiac but does not seem to be particularly symptomatic with that. 2. Structurally normal heart without significant valvulopathy. Minimal nonobstructive coronary artery disease. She likely has some mild degree of chronic diastolic failure but is really not grossly volume overloaded and I would not add more diuretic than the hydrochlorothiazide that she is already on. I would encourage salt avoidance, elevating her legs when able, light support hose if necessary and follow expectantly. I suspect her pedal edema is mostly on the basis of inactivity, dependent position etcetera. 3. Continuing long-term anticoagulation. TODAYS ORDERS No orders of the defined types were placed in this encounter. FOLLOW UP No follow-ups on file. PCP: ELLIOT STARKS MD Referring Physician: Elliot Starks MD [address] [place] [address] documented in this encounterC[facility]07-[facility]24 Miscellaneous Notes* Telephone Encounter - Medina Jaramillo MA - 11/25/2023 10:56 AM EDT Called patient to remind them to bring their most current copy of their medication list with them to their appt. Patient verbalizes understanding. documented in this encounterC[facility]07-24-2024 Telephone encounter Note* Telephone Encounter - Medina Jaramillo MA - 11/25/2023 10:56 AM EDT Called patient to remind them to bring their most current copy of their medication list with them to their appt. Patient verbalizes understanding. [facility]06-17-[facility] Miscellaneous Notes* Telephone Encounter - Jacinta Neri RN - 10/19/2023 9:19 AM EDT Last OV 08/25 CMP 07/25 documented in this encounterC[facility]06-17-2024 Telephone encounter Note* Telephone Encounter - Jacinta Neri RN - 10/19/2023 9:19 AM EDT Last OV 08/25 CMP 07/25 [facility]05-16-[facility] Telephone encounter Note* Telephone Encounter - Matt Adams RN - 09/17/2023 1:30 PM EDT Order faxed to Torey Julio Pt aware. Matt Adams RN [facility]05-16-2024 Miscellaneous Notes* Telephone Encounter - Matt Adams RN - 09/17/2023 1:30 PM EDT Order faxed to Torey Julio Pt aware. Matt Adams RN * Telephone Encounter - Matt Adams RN - 09/17/2023 10:18 AM EDT Pt called to request yearly Mammogram order I have pended order as previously completed Pt requests to fax to Nori Lema [phone] [facility]/: please review and sign if agreeable Matt Adams RN documented in this encounterOhiohealth [facility]05-16-2024 Telephone encounter Note * Telephone Encounter - Matt Adams RN - 09/17/2023 10:18 AM EDT Pt called to request yearly Mammogram order I have pended order as previously completed Pt requests to fax to Nori Lema [phone] [facility]/: please review and sign if agreeable Matt Adams RN [facility]04-18-2024 History of Present illness Narrative* Eva Abrams - 08/20/2023 2:30 PM EDT Ortho Nurse - Established Patient Intake Room#: [...] 08/20/2023 2:38 PM Patient: Bettie Burns MR#: [id number] : 1945 Age: 78 y.o. Referring Physician: Self, Self Insurance: Payor: MEDICARE [place] HMO [place] PPO / Plan: MEDICARE AETNA [...] LUMPECTOMY FOOT SURGERY HEART CATHETERIZATION no stents [place] ENDOMETRIAL CRYOABLATION REMOVAL BILIARY DUCT/GALLBLADDER CALCULI/DEBRIS PERCUTANEOUS [...] x 1 month, then 2x/week for maintainence, [facility]/pharmacy #[id number], 165, cm, 02/11/23 10:41:00 EDT, [...] cephalexin, latex, morphine, oxycodone, penicillins, and tramadol. * Divine Moulton 08/20/2023 2:30 PM EDT Bettie Burns is now 6 weeks s/p [...] arise. All pertinant portions of the clinical cell support operator documentation was reviewed and I agree with [...] 08/20/2023 2:38 PM Patient: Bettie Burns MR#: [id number] : 1945 Age: 78 y.o. Referring Physician: [...] Laterality: Right; Surgeon: Miko Ohara MD; Location: [facility] OR HIP REPLACEMENT 2021 ABLATION NERVE RADIOFREQUENCY PULSED 09/2018 for a-fib with [facility] APPENDECTOMY BREAST LUMPECTOMY FOOT SURGERY HEART CATHETERIZATION no stents KS ENDOMETRIAL CRYOABLATION REMOVAL BILIARY DUCT/GALLBLADDER CALCULI/DEBRIS PERCUTANEOUS [...] x 1 month, then 2x/week for maintainence, [facility]/pharmacy #[id number], 165, cm, 02/11/23 10:41:00 EDT, [...] oxycodone, penicillins, and tramadol. documented in this encounterA[facility]04-[facility]-2024 Miscellaneous Notes* Telephone Encounter - Ray Wills LPN - 08/10/2023 12:45 AM EDT Theresa 08/12/23 Cmp, mg 07/15/23 documented in this encounterC[facility]04-08-2024 Telephone encounter Note* Telephone Encounter - Ray Wills LPN - 08/10/2023 12:45 AM EDT Theresa 08/12/23 Cmp, mg 07/15/23 [employer] [id number] History of Present illness Narrative* Eva Abrams - 07/23/2023 2:30 PM EDT Ortho Nurse - Established Patient Intake Room#: pt here today for a 2 wk post op Rt ABD repair 07/08/23. Pt rates her pain on a scale of 2/10 today. Pt states she is doing well with no issues or concerns. She states she has not had much pain.Pt was in the ER on 07/13/23 with A-Fib and is doing a lot better now. Date: 07/23/2023 2:45 PM Patient: Bettie Burns MR#: [id number] : 1945 Age: 78 y.o. Referring Physician: Divine Mahmood Insurance: Payor: MEDICARE [place] HMO [place] PPO / Plan: MEDICARE AETNA [...] LUMPECTOMY FOOT SURGERY HEART CATHETERIZATION no stents KS ENDOMETRIAL CRYOABLATION REMOVAL BILIARY DUCT/GALLBLADDER CALCULI/DEBRIS PERCUTANEOUS [...] x 1 month, then 2x/week for maintainence, [facility]/pharmacy #[id number], 165, cm, 02/11/23 10:41:00 EDT, [...] cephalexin, latex, morphine, oxycodone, penicillins, and tramadol. * Divine Mahmood - 07/23/2023 2:30 PM EDT MRS Bettie Burns is 2 weeks s/p right Open Abductor repair with arthrex anchors She is progressingnicely in her recovery. She is TDWB with [...] no erythema, drainage or evidence of dehiscence. [place] intact. Calves are soft and nontender with [...] arthrex anchors -Incision was cleansed with Betadine. [place] were removed without issue, steri strip placed. [...] visit. All pertinant portions of the clinical cell support operator documentation was reviewed. Divine Mahmood I have reviewed the findings of the clinical cell support operator and agree with their assessment. Divine Mahmood Ortho Nurse - Established Patient Intake Room#: pt here today for a 2 wk post op Rt ABD repair 07/08/23. Pt rates her pain on a scale of 2/10 today. Pt states she is doing well with no issues or concerns. She states she has not had much pain.Pt was in the ER on 07/13/23 with A-Fib and is doing a lot better now. Date: 07/23/2023 2:45 PM Patient: Bettie Burns MR#: [id number] : 1945 Age: 78 y.o. Referring Physician: Divine Mahmood Insurance: Payor: MEDICARE [place] HMO [place] PPO / Plan: MEDICARE [place] PPO / Product Type: *No Product type* [...] LUMPECTOMY FOOT SURGERY HEART CATHETERIZATION no stents KS ENDOMETRIAL CRYOABLATION REMOVAL BILIARY DUCT/GALLBLADDER CALCULI/DEBRIS PERCUTANEOUS [...] x 1 month, then 2x/week for maintainence, [facility]/pharmacy #[id number], 165, cm, 02/11/23 10:41:00 EDT, [...] oxycodone, penicillins, and tramadol. documented in this encounterA[facility]03-15-2024 Miscellaneous Notes* Telephone Encounter - Estela Bueno RN - 07/17/2023 1:28 AM EDT Dose confirmed with patient documented in this encounterC[facility]03-15-2024 Telephone encounter Note* Telephone Encounter - Estela Bueno RN - 07/17/2023 1:28 AM EDT Dose confirmed with patient [facility]03-13-2024 Miscellaneous Notes* Telephone Encounter - Ashia Goncalves RN - 07/15/2023 8:46 AM EDT Pt called had knee surgery July 06 [...] she was willing. slm documented in this encounterC[facility]03-13-2024 Telephone encounter Note* Telephone Encounter - Ashia Goncalves RN - 07/15/2023 8:46 AM EDT Pt called had knee surgery July 06 [...] the ER and she was willing. slm [facility]03-06-2024 Miscellaneous Notes* Nursing Notes - Dolly Liao RN - 2023 3:30 PM EST AVS given to patient. All questions answered. Denies any questions and states she feels comfortableand confident with the information provided. Discharge instructions and education reviewed with pt,education provided for dx and new medications, printed education given, denies any questions, FAITH dressing remains in place with green light. IV and tele removed. Belongings gathered and patient discharged home with daughter and . * Op Note - Miko Ohara MD - 2023 5:54 AM EST DATE OF PROCEDURE: July 07, 2023 ATTENDING PHYSICIAN: Miko Ohara M.D. 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 PROCEDURE PERFORMED: Unlisted procedure of right hip and pelvis, dual-row suture anchor repair of 100% massive abductor tear of right hip, work equivalent similar to CPT 72380 Periarticular injection of right hip. ANESTHESIA: General. [...] obvious. She understood the complexity of the decision-making,the pros and cons of surgical management, and [...] padded. The right lower extremity was then elevatedand prepped and draped in a sterile standard fashion. A proper timeout was performed. I began by utilizing the previous incision. I came down over the iliotibial band. I created a smallplane here. I then split the iliotibial band [...] the chart for reference. I proceeded to carefullydebride and remove the suture. I removed the fluid from deep around the hip implant and analyzed it. Gross analysis demonstrated a clear, normal-appearing synovial fluid so I proceeded then at this point with isolated reconstruction of the abductor. The tip of the greater trochanter was decorticated. The abductor was chronically split and migratedmedially and proximally. I then spent a moderate [...] tip of the greater trochanter. The leg wasthen brought into abduction and internal rotation. The suture from these anchors was passed starting posterosuperiorly and working around to the anteroinferior portion of the abductor tendon. I then created a best-fit position for the second lateral row anchor with each of the 4 sutures from the anterior and posterior proximal anchors. Once the best-fit position was placed, the punch and tap wereused. Additional anchors were opened up. The abductor [...] multiple rows of 0-Vicryl and 0-Quill for thesubcuticular layer, and myriam for the skin. The [...] code that accurately depicts the nature of theabductor repair. The perioperative work required and the postoperative care is most similar to a total hip arthroplasty. We will bill it as a CPT similar to that, 41728. ATTENDING/ASSISTING PARTICIPATION: This operation could not have been safely performed (without compromising the technical results or length of the procedure) without the assistance of a skilled surgical instrument technician. A surgical instrument technician was medically necessary for positioning, retraction and instrume ntation. * Nursing Notes - Aidee Field RN - 2023 4:10 AM EST Assessment remains unchanged from previous. Neuro checks WN, abductor pillow in place. Call light within reach. * Nursing Notes - Aidee Field RN - 2023 12:05 AM EST Assessment remains unchanged from previous. Neuro checks WNL, abductor pillow in place. Denies futher needs, call light within reach. * Nursing Notes - Marcella Lozano RN - 07/07/2023 4:10 PM EST Arrived to room 3761 from PACU. Bedside report received from RICARDO Jacobo. Oriented to room and provided call light. Admission assessment, head to toe and post op vitals initiated. Fresh ice water and crackers provided. Family members accompanying patient, denies additional needs, call light in reach. FAITH intact flashing green. * Brief Op Note - MEDINA Richardson - 07/07/2023 3:28 PM EST POST OPERATIVE/PROCEDURE NOTE Bettie Burns 77 y.o. female [id number] SURGEON Surgeons and Role: * Miko Ohara MD - Primary MATERIAL CONTROL CLERK MEDINA Richardson ANESTHESIOLOGIST SUPERVISOR LATHING: Chance Ngo CRNA; PALAK Barrett SURGICAL STAFF Shipping Clerk/Admin: Kisha Karimi RN; Whit Govea, RICARDO Nurse Practitioner: MEDINA Richardson Scrub Person: Chi [...] Implant Name Type Inv. Item Serial No. Director Of Audiology Lot No. LRB No. Used Action ANCHORS, 5.5 NON PUNCHING - [id number] ANCHORS, 5.5 NON PUNCHING HIST ARTHREX [id number] Right 1 Implanted ANCHORS, 5.5 NON PUNCHING - [id number] ANCHORS, 5.5 NON PUNCHING HIST ARTHREX [id number] Right 3 Implanted SPECIMENS ID Type Source Tests Collected by Time Destination A : Right hip incisional fluid (1-2) (Anaerobic & Aerobic) Fluid/Swab - Other SURGICAL WOUND ANAEROBE CULTURE Miko Ohara MD 07/07/2023 1427 B : Right hip fluid (cell count, defferential, & culture) Fluid, Unspecified FLUID, UNSPECIFIEDBODY FLUID CELL COUNT Miko Ohara MD 07/07/2023 1429 C : Right hip suture (1-3) (Anaerobic & Aerobic) Surgical Wound SURGICAL WOUND FUNGUS CULTURE, ACID FAST CULTURE, ANAEROBE CULTURE Miko Ohara MD 07/07/2023 1434 Paula Fitzpatrick APRN-TECHNICIAN SUBMARINE CABLE EQUIPMENT July 07, 2023 3:28 PM * Nursing Notes - Chelsea Bledsoe RN - 07/07/2023 10:52 AM EST Unable to doppler right dorsalis pedis pulse. documented in this encounterA[facility] Note* Nursing Notes - Dolly Liao RN - 2023 3:30 PM EST AVS given to patient. All questions answered. Denies any questions and states she feels comfortableand confident with the information provided. Discharge instructions and education reviewed with pt,education provided for dx and new medications, printed education given, denies any questions, FAITH dressing remains in place with green light. IV and tele removed. Belongings gathered and patient discharged home with daughter and . [facility]03[facility] Hospital Discharge instructions* Discharge Instructions* Carmen Sebastian RN - 2023 12:10 PM EST You have been given printed educational handouts on all new medications. Please refer to your greendischarge folder for handouts. You have been given [...] at all times - Use a leg sas developer to get in and out of bed [...] how your recovery is progressing at home. * Discharge Instr - Activity* Carmen Sebastian RN - 2023 12:04 PM EST Ambulate with wheeled walker until follow up appointment or directed by Dr. Ohara. Toe touch weight bearing to right lower extremity. Abductor pillow to be in place when in bed or sleeping. * Discharge Instr - Notify* Carmen Sebastian RN - 2023 12:01 PM EST Contact Office ([phone]) if: > Any falls or injuries > [...] puffs per hour and tylenol as directed. * Discharge Instr - Wound Care* Carmen Sebastian RN - 2023 12:03 PM EST You have been given an educational handout on your FAITH dressing that is covering your incision. You will remove this dressing on Thursday morning, 07/14/23. Gently peel back the dressing while holdingthe skin taught. Do not rip or quickly pull off dressing. Once the dressing is removed you will discard the dressing, tubing and battery pack in the trash. Once your FAITH dressing is removed you willplace an ABD over your incision for comfort. When applying your new ABD pad as a reminder do not place any tape over your ABD pad. Your boxer briefs are to hold your pad in place. Your incision is closed with myriam. These are to be removed at your post-op appointment in Dr. Ohara's office, 10-14days after surgery. Your surgery date was 07/07/23. [...] incision or operative leg. documented in this encounterA[facility] History of Present illness Narrative* Carmen Sebastian RN - 2023 8:32 AM EST Patient was assessed in [facility] [place] on [...] time. Nursing reports that the incision has beenclosed with myriam, will request a 10-14 day follow up appointment for staple removal in the office. Patient informed of post-op follow up call tomorrow. Patient instructed on Meds to Beds. Patient denies any other questions or needs at this time. Follow up appointment scheduled for 07/23/23 @ 2:30 pm. * Divine Mahmood - 2023 7:21 AM EST Total Joint Progress Note P O DAY [...] PLANNING: plans; post hospital: SEE SS NOTES * Christine Wolf OT - 07/07/2023 6:39 PM EST 07/07/23 1800 Time In/Out Time In 1800 [...] LUMPECTOMY FOOT SURGERY HEART CATHETERIZATION no stents [place] ENDOMETRIAL CRYOABLATION REMOVAL BILIARY DUCT/GALLBLADDER CALCULI/DEBRIS PERCUTANEOUS [...] 0 Equipment Available wheeled walker;elevated toilet seat;shower chair;picture enlarger Cognitive Status Examination Orientation Status (Cognition) oriented [...] Supine to Sit, Rehab Eval Level of Piatt: Supine/Sit stand-by assist Physical Assist/Nonphysical Assist: Supine/Sit 1 person assist Transfer Skill: Sit to Stand, Rehab Eval Level of Piatt: Sit/Stand contact guard Physical Assist/Nonphysical Assist: Sit/Stand 1 person assist Weight-Bearing Restrictions: Sit/Stand toe touch weight-bearing Assistive Device for Transfer: Sit/Stand wheeled walker Upper Body Dressing Level of Piatt independent Physical Assist/Nonphysical Assist set-up required Lower Body Dressing Level of Piatt maximum assist (25% patients effort) Physical Assist/Nonphysical Assist 1 person assist Assistive Device picture enlarger General Therapy Interventions Planned Therapy Interventions (OT Eval) ADL retraining;balance training;transfer training Clinical Impression Co-evaluation/co-treatment performed? Yes, combination of simultaneous billable and individual billable skilled care was necessary due to medical complexity and functional deficits Patient Instruction/Education comments Pt instructed on LB dressing techniques donning underwear and shorts min assist in sitting and standing with training on use of picture enlarger to maintain hip precautions Rehab Potential (OT [...] hygiene training Therapist Information License # [id number] 1. Pt will complete LB dressing SBA 2. Pt will complete sponge bathing min assist 3. Pt will complete toileting MOD I 4. Pt will complete hygiene/grooming standing at sink MOD I 5. Pt will complete walk in shower transfer CGA * Mayra Kaur, PT - 07/07/2023 6:38 PM EST 07/07/23 1753 Time In/Out Time In 1753 [...] LUMPECTOMY FOOT SURGERY HEART CATHETERIZATION no stents KS ENDOMETRIAL CRYOABLATION REMOVAL BILIARY DUCT/GALLBLADDER CALCULI/DEBRIS PERCUTANEOUS [...] Supine to Sit, Rehab Eval Level of Piatt: Supine/Sit stand-by assist Physical Assist/Nonphysical Assist: Supine/Sit 1 person assist Transfer Skill: Sit To Stand, Rehab Eval Piatt (Sit-Stand Transfers) contact guard Physical Assist/Nonphysical Assist: Sit/Stand 1 person assist Weight-Bearing Restrictions: Sit/Stand toe touch weight-bearing Assistive Device For Transfer: Sit/Stand 2 wheeled walker Gait Skills, PT Eval Level of Piatt: Gait contact guard Physical Assist/Nonphysical Assist: Gait [...] educated on hip precautions, use of leg sas developer and weight bearing status. Pteducated to only perform ankle pumps and quad [...] yes, treatment indicated Impairments Found (PT Eval) Strength;Balance;Transfers;Gait/Locomotion;Edema;Aerobic capacity/endurance Rehab Potential (PT Eval) good Therapy [...] will be independent with HEP per protocol. * MEDINA Richardson - 07/07/2023 3:28 PM EST THIS PATIENT HAS HAD ORTHOPEDIC SURGERY AND IS EXPECTED TO HAVE PAIN REQUIRING NARCOTICS FOR >7 DAYS AND MAY NEED UP TO 12 tabs of oxycodone PER DAY AND THEREFORE 30tabs ARE BEING DISPENSED IN ACCORDANCE WITH POC DISCUSSED WITH DR OHARA. documented in this [facility]03-06-2024 Hospital course Narrative* Chance Mahoney MD - 2023 7:27 AM EST Images from the original note were not [...] revision total hip arthroplasty. She is doing wellpostoperatively. She has ambulated and voided. Pain is [...] medication and monitor on telemetry. In normal sinusrhythm overnight. Hypertension - continue home medication, monitor [...] x 1 month, then 2x/week for maintainence, [facility]/pharmacy #[id number], 165, cm, 02/11/23 10:41:00 EDT, Height/Length Dosing, [...] Dept Phone 07/23/2023 2:30 PM Divine Mahmood [facility] [phone] documented in this encounterA[facility]03-[facility] Surgery Postoperative evaluation and management note* Op Note - Miko Ohara MD - 2023 5:54 AM EST DATE OF PROCEDURE: July 07, 2023 ATTENDING PHYSICIAN: Miko Ohara M.D. 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 PROCEDURE PERFORMED: Unlisted procedure of right hip and pelvis, dual-row suture anchor repair of 100% massive abductor tear of right hip, work equivalent similar to CPT 77042 Periarticular injection of right hip. ANESTHESIA: General. [...] obvious. She understood the complexity of the decision-making,the pros and cons of surgical management, and [...] padded. The right lower extremity was then elevatedand prepped and draped in a sterile standard fashion. A proper timeout was performed. I began by utilizing the previous incision. I came down over the iliotibial band. I created a smallplane here. I then split the iliotibial band [...] the chart for reference. I proceeded to carefullydebride and remove the suture. I removed the fluid from deep around the hip implant and analyzed it. Gross analysis demonstrated a clear, normal-appearing synovial fluid so I proceeded then at this point with isolated reconstruction of the abductor. The tip of the greater trochanter was decorticated. The abductor was chronically split and migratedmedially and proximally. I then spent a moderate [...] tip of the greater trochanter. The leg wasthen brought into abduction and internal rotation. The suture from these anchors was passed starting posterosuperiorly and working around to the anteroinferior portion of the abductor tendon. I then created a best-fit position for the second lateral row anchor with each of the 4 sutures from the anterior and posterior proximal anchors. Once the best-fit position was placed, the punch and tap wereused. Additional anchors were opened up. The abductor [...] multiple rows of 0-Vicryl and 0-Quill for thesubcuticular layer, and myriam for the skin. The [...] code that accurately depicts the nature of theabductor repair. The perioperative work required and the postoperative care is most similar to a total hip arthroplasty. We will bill it as a CPT similar to that, 29570. ATTENDING/ASSISTING PARTICIPATION: This operation could not have been safely performed (without compromising the technical results or length of the procedure) without the assistance of a skilled surgical instrument technician. A surgical instrument technician was medically necessary for positioning, retraction and instrume ntation. [facility]03-06-2024 Nurse Note* Nursing Notes - Aidee Field RN - 2023 4:10 AM EST Assessment remains unchanged from previous. Neuro checks WN, abductor pillow in place. Call light within reach. [facility]03-06-2024 Nurse Note* Nursing Notes - Aidee Field RN - 2023 12:05 AM EST Assessment remains unchanged from previous. Neuro checks WNL, abductor pillow in place. Denies futher needs, call light within reach. [facility]03-05-2024 Consult note* Chance Mahoney MD - 07/07/2023 9:15 PM ESTAssociated Order(s): IP CONSULT TO GENERAL MEDICINE Medical consultation Patient is a 77 year old female who presents for revision total hip arthroplasty. She was at her baseline state of health prior to surgery and was medically optimized by her primary care provider andcardiologist. Testing notable for a blood sugar of 114, a hemoglobin A1c of 6.2, a urinalysis with s mall leukocyte esterase, a potassium of 3.1, and an INR of 1.23. She is doing well postoperatively.She has ambulated and voided. Pain is adequately [...] LUMPECTOMY FOOT SURGERY HEART CATHETERIZATION no stents [place] ENDOMETRIAL CRYOABLATION REMOVAL BILIARY DUCT/GALLBLADDER CALCULI/DEBRIS PERCUTANEOUS [...] metabolic panel in the morning GI prophylaxis. [facility]03-05-2024 Consult note* Chance Mahoney MD - 07/07/2023 9:15 PM ESTAssociated Order(s): IP CONSULT TO GENERAL MEDICINE Medical consultation Patient is a 77 year old female who presents for revision total hip arthroplasty. She was at her baseline state of health prior to surgery and was medically optimized by her primary care provider andcardiologist. Testing notable for a blood sugar of 114, a hemoglobin A1c of 6.2, a urinalysis with s mall leukocyte esterase, a potassium of 3.1, and an INR of 1.23. She is doing well postoperatively.She has ambulated and voided. Pain is adequately [...] LUMPECTOMY FOOT SURGERY HEART CATHETERIZATION no stents KS ENDOMETRIAL CRYOABLATION REMOVAL BILIARY DUCT/GALLBLADDER CALCULI/DEBRIS PERCUTANEOUS [...] the morning GI prophylaxis. documented in this encounterA[facility]03-[facility] Nurse Note* Nursing Notes - Marcella Lozano RN - 07/07/2023 4:10 PM EST Arrived to room [facility] from PACU. Bedside report received from RICARDO Jacobo. Oriented to room and provided call light. Admission assessment, head to toe and post op vitals initiated. Fresh ice water and crackers provided. Family members accompanying patient, denies additional needs, call light in reach. FAITH intact flashing green. [facility] Nurse Note* Sara Garcia RN - 07/07/2023 4:00 PM EST Patient transferred to [facility] via cart in stable condition. Report given to RICARDO Kim. Cart left in locked and lowest position with side rails up x2. Snack and call light given to patient. Monitorsand alarms on and attached to patient. * Edison Perez RN - 07/07/2023 3:30 PM EST Patient transported to PACU with Damián TILLEY. Reports given to Sara SILVA at 1530H. * Whit Govea RN - 07/07/2023 2:04 PM EST OR 3 room temp: 65.1F Humidity: 44% Fire score of: 2 documented in this encounterA[facility]03-[facility] Nurse Surgical operation note* Sara Garcia RN - 07/07/2023 4:00 PM EST Patient transferred to [facility] via cart in stable condition. Report given to RICARDO Kim. Cart left in locked and lowest position with side rails up x2. Snack and call light given to patient. Monitorsand alarms on and attached to patient. [facility]03-05-2024 Nurse Surgical operation note* Edison Perez RN - 07/07/2023 3:30 PM EST Patient transported to PACU with Damián TILLEY. Reports given to Sara SILVA at 1530H. [facility]03-05-2024 Surgery Postoperative evaluation and management note* Brief Op Note - MEDINA Richardson - 07/07/2023 3:28 PM EST POST OPERATIVE/PROCEDURE NOTE Bettie Frailey 77 y.o. female [id number] SURGEON Surgeons and Role: * Miko Ohara MD - Primary MATERIAL CONTROL CLERK MEDINA Richardson ANESTHESIOLOGIST SUPERVISOR LATHING: Chance Ngo CRNA; PALAK Barrett SURGICAL STAFF Shipping Clerk/Admin: Kisah Karimi RN; Whit Govea RN Nurse Practitioner: [...] Implant Name Type Inv. Item Serial No. Director Of Audiology Lot No. LRB No. Used Action ANCHORS, 5.5 NON PUNCHING - [id number] ANCHORS, 5.5 NON PUNCHING HIST ARTHREX [id number] Right 1 Implanted ANCHORS, 5.5 NON PUNCHING - [id number] ANCHORS, 5.5 NON PUNCHING HIST ARTHREX [id number] Right 3 Implanted SPECIMENS ID Type Source Tests Collected by Time Destination A : Right hip incisional fluid (1-2) (Anaerobic & Aerobic) Fluid/Swab - Other SURGICAL WOUND ANAEROBE CULTURE Miko Ohara MD 07/07/2023 1427 B : Right hip fluid (cell count, defferential, & culture) Fluid, Unspecified FLUID, UNSPECIFIEDBODY FLUID CELL COUNT Miko Ohara MD 07/07/2023 1429 C : Right hip suture (1-3) (Anaerobic & Aerobic) Surgical Wound SURGICAL WOUND FUNGUS CULTURE, ACID FAST CULTURE, ANAEROBE CULTURE Miko Ohara MD 07/07/2023 1434 Paula Fitzpatrick APRN-TECHNICIAN SUBMARINE CABLE EQUIPMENT July 07, 2023 3:28 PM [facility]03-05-2024 Nurse Surgical operation note* Whit Govea RN - 07/07/2023 2:04 PM EST OR 3 room temp: 65.1F Humidity: 44% Fire score of: 2 [facility]03-[facility] Nurse Note* Nursing Notes - Chelsea Bledsoe RN - 07/07/2023 10:52 AM EST Unable to doppler right dorsalis pedis pulse. [facility]02-16-2024 Miscellaneous Notes* Telephone Encounter - Jacqueline Sparrow RN - 06/19/2023 12:01 PM EST Surgeon: Dr Miko Ohara Type of surgery: [...] on risk, holding Eliquis and Celebrex question. * Telephone Encounter - Donna Diaz MD - 06/19/2023 12:01 PM EST Okay to proceed with surgery at moderate risk Can use Celebrex Hold Eliquis for 2 days resume after surgery * Telephone Encounter - Jacqueline Sparrow RN - 06/19/2023 12:01 PM EST Clearance note faxed back to Dr Ohara office. documented in [facility] encounterC[facility] Telephone encounter Note* Telephone Encounter - Jacqueline Sparrow RN - 06/19/2023 12:01 PM EST Surgeon: Dr Miko Ohara Type of surgery: [...] on risk, holding Eliquis and Celebrex question. [facility]02-16-2024 Telephone encounter Note* Telephone Encounter - Donna Diaz MD - 06/19/2023 12:01 PM EST Okay to proceed with surgery at moderate risk Can use Celebrex Hold Eliquis for 2 days resume after surgery [employer] Work Phone: [phone] Telephone encounter Note* Telephone Encounter - Jacqueline Sparrow RN - 06/19/2023 12:01 PM EST Clearance note faxed back to Dr Ohara office. [facility]02-15-2024 History of Present illness Narrative* Eva Abrams - 06/18/2023 2:10 PM EST Ortho Nurse - Established Patient Intake Room#: room 3----- pt here today to review MRI results of the right hip, pt rates her pain on a scale of 3/10 today. Pt states most of her pain is on the side of the hip. Pt did have a R PAULA a year ago with Dr. Denver Hughes in [place]. Pt states she is looking for a second opinion due to having issues from this past surgery. Date: 06/18/2023 2:32 PM Patient: Bettie Burns MR#: [id number] : 1945 Age: 77 y.o. Referring Physician: [...] APPENDECTOMY BREAST LUMPECTOMY FOOT SURGERY HEART CATHETERIZATION [place] ENDOMETRIAL CRYOABLATION REMOVAL BILIARY DUCT/GALLBLADDER CALCULI/DEBRIS PERCUTANEOUS [...] allergic to morphine, oxycodone, penicillins, and tramadol. * Miko Ohara MD - 06/18/2023 2:10 PM EST HPI: Patient is here today for evaluation of her right hip pain. She is an est patient for me. A pleasant 77 y.o. female with a history of progressive decline, physical function and decreased qualityof life secondary to the hip pain. She [...] supple motion. No pain. No impingement. No inst ability. Normal neurovascular status in lower extremities bilaterally. IMAGING: MRI HIP RIGHT WITHOUT CONTRAST Result Date: 06/01/2023 IMPRESSION: 1. MRI of pelvis/right hip: Limitations due to motion combined with susceptibility artifact from right hip prosthesis. 2. Tendinopathy involving the bilateral common hamstring tendon origins as well as the gluteal tendons as discussed in detail above. 3. Kypfh-ve-xtyyrylc amount of fluid along the lateral aspect [...] have discussed the risks, benefits, and alternatives toeach treatment. Bettie understands that the potential benefits are reduced pain, improved stability and improved function. Bettie understands the complex nature of revision surgery and that the elevated major life or limb threatening risks that include, but are not limited to: bleeding, infection, billy rovascular injury including foot drop or paralysis, dislocation, component failure, implant loosening, ligament or tendon disruption, fracture, stiffness, chronic pain, chronic disability, leg lengthinequality, need for further surgery, blood clots in the extremities or lungs, stroke, heart attack, loss of limb, and ultimately loss of life. In particular the patient understands the increased andmajor risks of revision surgery such as selma-prosthetic [...] nasal MRSA screening, scheduling an appointment for [facility] [place] and the potential surgical date, and reviewing [...] APPENDECTOMY BREAST LUMPECTOMY FOOT SURGERY HEART CATHETERIZATION [place] ENDOMETRIAL CRYOABLATION REMOVAL BILIARY DUCT/GALLBLADDER CALCULI/DEBRIS PERCUTANEOUS W/ IMAGE REMOVAL CATARACT (PEM) ROTATOR CUFF REPAIR History reviewed. No pertinent family history. Social History Socioeconomic History Marital status: Tobacco Use Smoking status: Never Smokeless tobacco: Never Social Determinants of Health Food Insecurity: No Food Insecurity (06/02/2023) Received from [email or web address] Hunger Screening Within the past 12 months [...] Morphine Oxycodone Penicillins Tramadol documented in this [facility]01-30-2024 History of Present illness Narrative* Donna Diaz MD - 06/02/2023 2:30 PM EST Bettie Burns Date of visit: 06/02/2023 Date [...] total) by mouth in the morning. 135 tablet3 baclofen (LIORESAL) 20 mg tablet Take 1 [...] history of hypertension, nonobstructive coronary artery disease, paroxysmalatrial fibrillation with prior cardiac ablation for atrial [...] issues. Past Medical History: Diagnosis [place] hx of Arrhythmia 12/2016 ATRIAL FIBRILLATION Arthritis Breast cancer [place] 11/14/2015 LEFT COVID-19 03/2020 History of bleeding ulcers Hypertension Migraines Pneumonia d/t covid Prolonged emergence from general anesthesia Visual impairment glasses No data recorded No data recorded No data recorded Past Surgical History: Procedure Laterality Date ABLATION OF DYSRHYTHMIC FOCUS Right nerve ablation, L4 and L5 Afib ablation with SHANICE - CRYO, Rhythmia, ICE N/A 09/28/2018 Performed by Amber Qu[facility]onez MD at [facility] () ARTHROSCOPY REPAIR ROTATOR CUFF SHOULDER Right 05/16/2020 Performed by Melchor Rivera DO at [facility] ARTHROSCOPY SHOULDER Right 05/16/2020 Performed by Melchor Rivera DO at [facility] BREAST BIOPSY Left 2016 BREAST LUMPECTOMY Left 11/14/2015 WITH RADIATION BREAST SURGERY Left 2012 lumpectomy CATARACT EXTRACTION CHOLECYSTECTOMY COLONOSCOPY Coronary angiogram and left ventricular gram/pressure N/A 08/08/2021 Performed by Bertram Lal MD at [facility] CARDIAC CATH LABS EYE SURGERY [...] Other Topics Concern Caffeine Use Yes Comment: 2 cup Social History Narrative Not on file [...] STARKS MD Referring Physician: Elliot Starks MD [address] [place] [address] documented in this encounterBarre City HospitalReplySend [facility] [phone] History of Present illness Narrative* Divine Boudreaux - 05/14/2023 9:30 AM EST Ortho Nurse - Patient Intake Room#: 1 --- BOOM STORAGE R Hip pain, had R THR in [...] 05/14/2023 9:44 AM Patient: Bettie Burns MR#: [id number] : 1945 Age: 77 y.o. Referring Physician: Self, Self Insurance: Payor: MEDICARE AETNA HMO OR PPO / Plan: [place]ICARE [place] PPO / Product Type: *No Product type* [...] [x]cane, []bracing Are you followed by a duck operator? [x] [] Name: Dr. Waleska Lowe Are you followed by pain management? [x] [] Name: Dr. Cedeno - Pain Mgmt @ [facility] Are you followed by any other specialists? [x] [] Name: Oncolgist - Dr. Choi [facility] Urologist - Dr. Gonzales - [facility] Medications Prior to Visit Medication [...] Prednisone Use Does pt have dentures? no * Miko Ohara MD - 05/14/2023 9:30 AM EST HPI: Patient is here today for evaluation [...] is getting much relief from conservative treatments. Thepain is 6 on a 10-point scale. She [...] motion. No pain. No impingement. No instability. Normalneurovascular status in lower extremities bilaterally. IMAGING: Plain film radiographs were reviewed. She has a right cementless total hip arthroplasty ingood position and alignment. No changes from immediate films that were available for review. IMPRESSION: Questionable abductor muscle tearing, right side. 2.) History of right PAULA [place] [address] Rivera. PLAN: I have reviewed my findings with the patient. We have gone over the diagnosis, radiographs, physical exam findings and treatment options together. Given clinical evaluation, it is reasonable tosuspect abductor muscle tearing. Next step in recommended treatment is metal suppressed MRI of the right hip to evaluate the integrity of the abductor muscles as well as ESR/CRP and [place] and Chromium labs today. I will see [...] APPENDECTOMY BREAST LUMPECTOMY FOOT SURGERY HEART CATHETERIZATION KS ENDOMETRIAL CRYOABLATION REMOVAL BILIARY DUCT/GALLBLADDER CALCULI/DEBRIS PERCUTANEOUS [...] Morphine Oxycodone Penicillins Tramadol documented in this [facility]* Encounter Date Diagnosis Assessment Notes Treatment Notes Treatment Clinical Notes Mar, Acute non-recurrent maxillary sinusitis (ICD-10 - J01.00) Discussed diagnosis [...] verbalizes understanding and agrees with tx plan. [employer] Other 10-11-2023 Hospital Discharge instructions Patient Education 02/11/2023 11:16:08 [...] provider. Document Revised: 08/29/2021 Document Reviewed: 08/29/2021 [employer] Patient Education 2022 [place]. Follow Up Care 11/06/2022 15:31:52 With:Paul VILLEGAS, PERLA Araujo, URO Address: When:Within 3 Month(s) [facility] [employer] 07-17-2023 Evaluation note* Encounter Date Diagnosis Assessment Notes Treatment Notes Treatment Clinical Notes Nov, Dysuria (ICD-10 - R30.0) [employer] Other 06-29-2023 Evaluation note* Encounter Date Diagnosis Assessment Notes Treatment Notes Treatment Clinical Notes Oct, Frequent UTI (ICD-10 - N39.0) Pt requests Urology referral. Discussed also getting CT to move along process. Oct, Dyshidrotic eczema (ICD-10 - L30.1) Will treat with steroid cream prn [employer] Other 06-26-2023 Evaluation note* Encounter Date Diagnosis Assessment Notes Treatment Notes Treatment Clinical Notes Oct, Dysuria (ICD-10 - R30.0) [facility] Other 05-11-2023 Miscellaneous Notes* Telephone Encounter - Matt Adams RN - 09/11/2022 11:43 AM EDT Order faxed to [facility] and pt is aware. Matt Adams RN * Telephone Encounter - Matt Adams RN - 09/11/2022 9:51 AM EDT Pt called to request yearly Mammogram order I have pended order as previously completed Pt requests to fax to Nori Lema [phone] BRM/HM: please review and sign if agreeable Matt Adams RN documented in this encounterOhio[facility]04-10-2023 Evaluation note* Encounter Date Diagnosis Assessment Notes Treatment Notes Treatment Clinical Notes Aug, Dysuria (ICD-10 - R30.0) [facility] Other 03-16-2023 Evaluation note* Encounter Date Diagnosis [...] N32.81) chronic and improved on present med [employer] Other 02-20-2023 Evaluation note* Encounter Date Diagnosis Assessment Notes Treatment Notes Treatment Clinical Notes Jun, Dysuria (ICD-10 - R30.0) [employer] Other 02-03-2023 Evaluation note* Encounter Date Diagnosis Assessment Notes Treatment Notes Treatment Clinical Notes Jun, OAB (overactive bladder) (ICD-10 - N32.81) [facility] Other 02-01-2023 Evaluation note* Encounter Date Diagnosis Assessment Notes Treatment Notes Treatment Clinical Notes Jun, OAB (overactive bladder) (ICD-10 - N32.81) Patient request to try new medication reviewed side effect profile. Patient declines urology or LEAN MANUFACTURING ENGINEER referral at this time. Jun, Essential hypertension (ICD-10 - I10) reviewed and updated medications she will follow-up with cardiology in Jun, Hypokalemia (ICD-10 - E87.6) Reviewed and updated medications. Discussed foods that are high in potassium Jun, Right lumbar pain (ICD-10 - M54.50) Follow-up with Dr. Rivera as scheduled in June. She does have limping with her gait. [employer] Other 05-26-2022 Miscellaneous Notes* Telephone Encounter - Andrew Choi MD - 09/26/2021 5:13 PM EDT Okay to change to screening mammogram. Order signed. ASIYA Ford * Telephone Encounter - Mikaela Thompson RN - 09/26/2021 2:33 PM EDT Pt scheduled for diagnostic mamm tomorrow @ [facility]. Hospital calls to ask if this could be changed to a screening mammogram since the pt is greater than 2 years from diagnosis? Mikaela Thompson RN documented in this encounterOhiohealth Van Wert HospitalEvaluation + Plan note Future Appointments Appointment Date:05/27/2023 08:45:00 AM Scheduled Provider:Alfreda Miller MD Location:[facility] Appointment Type:URO Office Visit [facility] evaluation + Plan note Future Appointments Appointment Date:07/22/2024 10:30:00 AM Scheduled Provider: Location:[facility] Appointment Type:Urology CALL PAT FT Appointment Date:07/25/2024 08:15:00 AM Scheduled Provider: Location:[facility] Appointment Type:Urology FT [facility] evaluation + Plan note Future Appointments Appointment Date:07/22/2024 10:30:00 AM Scheduled Provider: Location:[facility] Appointment Type:Urology CALL PAT FT Appointment Date:07/25/2024 08:15:00 AM Scheduled Provider: Location:[facility] Appointment Type:Urology FT Diagnostic Tests Pending * Urine Culture 06/22/24 [facility] Evaluation note* Diagnosis Encounter for screening mammogram for malignant neoplasm of breast- Primary Other screening mammogram [facility]* Diagnosis Malignant neoplasm of upper-outer quadrant of left breast in female, estrogen receptor positive (HCC)- Primary documented in this encounter [facility] HospitalEvalusaint francis healthcare noteNo InformationNort SYSTRAN Other Evaluation note* Diagnosis Encounter for screening mammogram for malignant neoplasm of breast- Primary Other screening mammogram documented in this encounter [facility] HospitalEvalusaint franc[facility] noteNo assessment information availableKnox [facility] Work Phone: Evaluation note* Diagnosis Pain in prosthetic joint, initial encounter- Primary Primary osteoarthritis of right hip Primary localized osteoarthrosis, pelvic region and thigh documented in this encounter [facility]Evaluation note* Diagnosis Right hip pain- Primary Pain in joint, pelvic region and thigh Pre-op testing- Primary Preoperative examination, unspecified Essential (primary) hypertension Unspecified essential hypertension Abnormal finding of blood chemistry, unspecified Abnormal coagulation profile Tear of rotator cuff of right hip, initial encounter 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, initial encounter documented in this encounter [facility]* Diagnosis Status post revision of total hip- Primary Hip joint replacement by other means Pre-op testing Preoperative examination, unspecified Tear of rotator cuff of right hip, initial encounter 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, initial encounter Acute postoperative pain of right hip documented in this encounter [facility]* Diagnosis Tear of gluteus minimus tendon, right, initial encounter- Primary documented in this encounter [facility]* Diagnosis Right hip pain- Primary Pain in joint, pelvic region and thigh documented in this encounter [facility]* Diagnosis Onset Date Resolution Status Dysuria noneactive [facility] Work Phone: Evaluation note* Diagnosis Hx of total hip arthroplasty, right- Primary documented in this encounter [facility]* Diagnosis Paroxysmal atrial fibrillation (CMS-HCC)- Primary Atrial fibrillation Primary hypertension Unspecified essential hypertension Chronic coronary artery disease Coronary atherosclerosis of unspecified type of vessel, algaaciq or graft [facility]* Diagnosis Paroxysmal atrial fibrillation (CMS-HCC)- Primary Atrial fibrillation Unstable angina (CMS-HCC) Intermediate coronary syndrome SOB (shortness of breath) Shortness of breath documented in this encounter [facility] Narrative - Reported* Type Description [...] replacement 12/16/2021 Hospitalization History SEE SURGICAL HX [facility] Other Hospital course Narrative No data available for this section [facility] Hospital Discharge instructions* Attachments The following attachments cannot be sent through Care Everywhere. * [facility] AMB SMOKING CESSATION LINKS documented in this [facility] SystemHospital Discharge instructions No data available for this section [facility] InstructionsNot on filedocumented in this encounter [facility] SystemInstructionsNot on filedocumented in this encounter [facility] SystemInstructionsNot on filedocumented in this encounter [facility] SystemInstructionsNot on filedocumented in this encounter [facility]InstructionsNot on filedocumented in this encounter [facility] SystemInstructionsNot on filedocumented in this encounter [facility] SystemInstructionsNot on filedocumented in this encounter [facility] SystemInstructionsNot on filedocumented in this encounter [facility] SystemProgress note No data available for [...] 2-VIEW BREAST INC Andrew Miguel MD [address] [place] [address] [facility] Imaging [address] [place] [address] Referral ID Status Reason Start Date Expiration Date Visits Requested Visits Authorized [id number] Pending Review Auto-Generat ed Referral 09/26/2021 10/26/2022 1 1 [facility] for referral (narrative)* Diagnostic Procedure Only (Routine) - Pending Review Specialty Diagnoses / Procedures Referred By Contac t Referred To Contact [facility] Diagnoses Encounter for screening mammogram for malignant neoplasm of breast Procedures SHANE SCREENING W YAW SCREENING DIGITAL BREAST TOMOSYNTHESIS BI SCREENING MAMMOGRAPHY BI 2-VIEW BREAST INC Andrew Miguel MD [address] [place] [address] Br Imaging [address] [place] [phone] Referral ID Status Reason Start Date Expiration Date Visits Requested Visits Authorized [id number] Pending Review Auto-Generat ed Referral 09/11/2022 10/11/2023 1 1 [facility] [place] for referral (narrative)* (Routine) Specialty Diagnoses / Procedures Referred By Contac t Referred To Contact [facility] REV LOC [address] [place] [id number] Referral ID Status Reason Start Date Expiration Date Visits Re quested Visits Authorized [facility] (narrative)* Consultation (Routine) - Patient to Arrange Specialty Diagnoses / Procedures Referred By Contac t Referred To Contact Physical Therapy Diagnoses Right hip pain Divine Mahmood [address] [place] [address] Referral ID Status Reason Start Date Expiration Date V isits Requested Visits Authorized [id number] Patient to Arrange 08/20/2023 09/13/2024 1 1 Scheduling Instructions . * Diagnostic X-Ray (Routine) - New Request Specialty Diagnoses / Procedures Referred By Juan wren Referred To Contact Diagnoses Right hip pain Procedures XR HIP WITH PELVIS RIGHT Divine Mahmood [address] [place] [address] Referral ID Status Reason Start Date Expiration Date V isits Requested Visits Authorized [id number] New Request 08/20/2023 09/13/2024 1 1 [facility] Diagnostic Procedure Only (Routine) - Pending Review Specialty Diagnoses / Procedures Referred By Juan wren Referred To Contact [facility] IMAGING Diagnoses Encounter for screening mammogram for malignant neoplasm of breast Procedures SHANE SCREENING W YAW SCREENING DIGITAL BREAST TOMOSYNTHESIS BI SCREENING MAMMOGRAPHY BI 2-VIEW BREAST INC Andrew Miguel MD [address] [place] [address] [place] [address] [facility] [address] [place] [address] Referral ID Status Reason Start Date Expiration Date Visits Requested Visits Authorized [id number] Pending Review Auto-Generat ed Referral 09/17/2023 10/16/2024 1 1 [facility] Summary Purpose Family History Relationship Condition Age at Onset Recorded Date/T nilam father Unknown mother Unknown Advance Directives Documents on File Type Date Recorded Patient Psychology Lecturer Expl anation Advance Directives/Living Will 06/25/2023 9:17 AM DURABLE POWER OF WRIST CLOSER FOR HEALTHCARE 06/25/23 Advance Directives/Living Will 06/25/2023 9:13 AM LIVING WILL 06/25/23 Latest Code Status on File Code Status Date Activated Date Inactivated Comments Full Code 07/07/2023 3:27 PM Advance Directive Response Recorded Date/ Time Advance Directives No November 17 6:19pm Date Activated Date Inactivated Comments 07/07/2023 3:27 PM Advance Directive Response Recorded Date/ Time Advance Directives No November 17 5:19pm Documents on File Type Date Recorded Patient Psychology Lecturer Expl anation Living Will 05/21/2020 9:37 AM Durable Power of Peer Counselor 05/21/2020 9:27 AM Durable Power of Peer Counselor 05/16/2020 6:05 AM Living Will 05/16/2020 6:04 AM Healthcare Agents on File Name Relationship Healthcare Agent Relationshi p Communication David Burns Spouse Health Care Agent Samantha Inman Daughter First Alternate Health Ca re Agent Healthcare Agents on File Name Relationship Healthcare Agent Relationshi p Communication David Burns Spouse Health Care Agent Samantha Inman Daughter First Alternate Health Ca re Agent Healthcare Agents on File Name Relationship Healthcare Agent Relationshi p Communication David Burns Spouse Health Care Agent Samantha Inman Daughter First Alternate Health Ca re Agent Reason for Referral Specialty Diagnoses / Procedures Referred By Contac t Referred To Contact Diagnoses Hx of total hip arthroplasty, right Procedures XR HIP WITH PELVIS RIGHT Miko Ohara MD [address] [place] [address] Referral ID Status Reason Start Date Expiration Date V isits Requested Visits Authorized [id number] New Request 11/16/2023 12/10/2024 1 1 Specialty Diagnoses / Procedures Referred By Contac t Referred To Contact Diagnoses Tear of gluteus minimus tendon, right, initial encounter Procedures XR HIP WITH PELVIS RIGHT Divine Mahmood [address] [place] [address] Referral ID Status Reason Start Date Expiration Date V isits Requested Visits Authorized [id number] New Request 07/20/2023 08/13/2024 1 1 Specialty Diagnoses / Procedures Referred By Contac t Referred To Contact Diagnoses Pain in prosthetic joint, initial encounter Procedures MRI HIP RIGHT WITHOUT CONTRAST KS MRI LOWER EXTREM JT, W/O CONTRAST Miko Ohara MD [address] [place] [address] Referral ID Status Reason Start Date Expiration Date V isits Requested Visits Authorized [id number] New Request 05/14/2023 06/07/2024 1 1 Specialty Diagnoses / Procedures Referred By Contac t Referred To Contact Diagnoses Pain in prosthetic joint, initial encounter Procedures COBALT AND CHROMIUM,WB Miko Ohara MD [address] [place] [address] Referral ID Status Reason Start Date Expiration Date V isits Requested Visits Authorized [id number] New Request 05/14/2023 06/07/2024 1 1 Specialty Diagnoses / Procedures Referred By Contac t Referred To Contact Diagnoses Primary osteoarthritis of right hip Procedures XR HIP WITH PELVIS RIGHT Miko Ohara MD [address] [place] [address] Referral ID Status Reason Start Date Expiration Date V isits Requested Visits Authorized [id number] New Request 05/06/2023 05/30/2024 1 1 Reason *FU 11/12 [place] office Diagnosis 1 Frequent UTI (N39.0) Referral Organization [facility] tam Referring Provider First Name Elliot Referring Provider Last Name Raudel Referring Provider Specialty Family [facility] Referred Organization [facility] Referred Provider ALFREDA MILLER Referred Address [address] [place], [place],[address] Referred Provider Specialty Urology Referral Priority Routine General Notes Victoria Lisa 11:03:05 AM >received today, notes attached, along with labs and ins, waiting for notes to be locked before faxing Victoria Lisa 11/05/2022 02:44:05 PM >referral faxed Chief Complaint and Reason for Visit Chief Complaint med refills Reason for Visit Dysuria Chief Complaint med dicussion Chief Complaint Admit Date Bilateral earache, left worst April 042023 9:54am Med f/u May 09, 2024 9: 07am Reason for Visit Admit Date Acute bilateral otitis media April 302023 9:54am Chief Complaint Admit Date Bilateral earache, left worst April 042023 9:54am Med f/u May 09, 2024 9: 07am CC Adult Risk Stratification May 9:49am UA, burning, frequency June 21 10:32am Reason for Visit Admit Date Acute bilateral otitis media April 302023 9:54am Acute otitis media with effusion May 09, 2024 9:07am Insomnia May 09, 2024 9: 07am Reaction, situational, acute, to stress May 09, 2024 9:07am Additional Source Comments INFORMATION SOURCE (unrecogn ized section and content) DATE CREATED AUTHOR 10/28/2017 [facility] DATE CREATED AUTHOR AUTHOR'S ORGANIZ ATION 03/21/2020 [facility] DATE CREATED AUTHOR AUTHOR'S ORGANIZ ATION 09/13/2021 [facility] dical Specialist DATE CREATED AUTHOR AUTHOR'S ORGANIZ ATION 06/11/2022 [facility] DATE CREATED AUTHOR AUTHOR'S ORGANIZ ATION 11/18/2022 [facility] DATE CREATED AUTHOR AUTHOR'S ORGANIZ ATION 05/20/2023 [facility] DATE CREATED AUTHOR AUTHOR'S ORGANIZ ATION 09/19/2023 [facility] DATE CREATED AUTHOR AUTHOR'S ORGANIZ ATION 10/01/2023 [facility] DATE CREATED AUTHOR AUTHOR'S ORGANIZ ATION 10/17/2023 [facility] DATE CREATED AUTHOR AUTHOR'S ORGANIZ ATION 04/08/2024 [facility] DATE CREATED AUTHOR AUTHOR'S ORGANIZ ATION 06/24/2024 [facility] DATE CREATED AUTHOR AUTHOR'S ORGANIZ ATION 06/26/2024 [facility] DATE CREATED AUTHOR AUTHOR'S ORGANIZ ATION 06/30/2024 [facility] Source Comments (unrecognize d section and content) In the event this informatio n is protected by the Federal Confidentiality of Alcohol and Drug Abuse Patient Records regulations: The Federal rules restrict any use of the information to criminally investigate or prosecute any alcohol or drug abuse patient.[facility] Hospital[facility] the event this information is protected by the Federal Confidentiality of Alcohol and Drug Abuse Patient Records regulations: The Federal rules restrict any use of the information to criminally investigate or prosecute any alcohol or drug abuse patient.[facility] HospitalIn the event this information is protected by the Federal Confidentiality of Alcohol and Drug Abuse Patient Records regulations: The Federal rules restrict any use of the information to criminally investigate or prosecute any alcohol or drug abuse patient.[facility] HospitalIn the event this information is protected by the Federal Confidentiality of Alcohol and Drug Abuse Patient Records regulations: The Federal rules restrict any use of the information to criminally investigate or prosecute any alcohol or drug abuse patient.[facility] Reason for Visit (unrecogniz ed section and content) Reason Comments Radiology Mammogram Reason Comments Lab Orders Reason Comments Orders Specialty Diagnoses / Procedures Referred By Contac t Referred To Contact Diagnoses Primary osteoarthritis of right hip Procedures XR HIP WITH PELVIS RIGHT Miko Ohara MD [address] [place] [address] Referral ID Status Reason Start Date Expiration Date V isits Requested Visits Authorized [id number] New Request 05/06/2023 05/30/2024 1 1 Reason Comments Pain Reason Comments MRI Results Specialty Diagnoses / Procedures Referred By Contac t Referred To Contact Diagnoses Tear of rotator cuff of right hip, initial encounter 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, initial encounter Tear of rotator cuff of right hip, initial encounter [S76.011A] 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, initial encounter [T84.090A] Procedures KS PELVIS/HIP JOINT SURGERY UNLISTED KS REVISE TOTAL HIP REPLACEMENT GLUTEUS MEDIUS TENDON REPAIR REVISION ARTHROPLASTY HIP BOTH ACETABULAR & FEMORAL COMPONENTS Miko Ohara MD [address] [place] [id number] Referral ID Status Reason Start Date Expiration Date Visits Re quested Visits Authorized [id number] 06/19/2023 1 1 Reason Comments Post Op Visit Specialty Diagnoses / Procedures Referred By Contac t Referred To Contact Diagnoses Tear of gluteus minimus tendon, right, initial encounter Procedures XR HIP WITH PELVIS RIGHT Divine Mahmood Deric [address] [place] [address] Referral ID Status Reason Start Date Expiration Date V isits Requested Visits Authorized [id number] New Request 07/20/2023 08/13/2024 1 1 Reason Comments Follow-up Specialty Diagnoses / Procedures Referred By Contac t Referred To Contact Diagnoses Right hip pain Procedures XR HIP WITH PELVIS RIGHT Divine Mahmood [address] [place] [address] Referral ID Status Reason Start Date Expiration Date V isits Requested Visits Authorized [id number] New Request 08/20/2023 09/13/2024 1 1 Reason Comments Yearly Exam With Mammogram Reason Comments Pain Specialty Diagnoses / Procedures Referred By Contac t Referred To Contact Diagnoses Hx of total hip arthroplasty, right Procedures XR HIP WITH PELVIS RIGHT Miko Ohara MD [address] [place] [id number] Referral ID Status Reason Start Date Expiration Date V isits Requested Visits Authorized [id number] New Request 11/16/2023 12/10/2024 1 1 Reason Comments Follow-up est pt concerns of a fib per smart watch wants seen sooner. sched w/pt pt will arrive at 11:30 Reason Onset Date Comments Med Refill 10/19/2023 Reason Onset Date Comments Pre op clearance 06/19/2023 Reason Comments Follow-up Hypertension Leg Swelling Reason Comments Med Refill Care Teams (unrecognized sec tion and content) Work From Home Relationship Specialty Start Date End Date Elliot Starks MD [address] [facility] [place] [id number] PCP - General Family Practice 11/26/15 Work From Home Relationship Specialty Start Date End Date Elliot Starks MD [address] [facility] [place] [phone] PCP - General Family Practice 11/26/15 Work From Home Relationship Specialty Start Date End Date Elliot Starks MD [address] [facility] [place] [phone] PCP - General Family Medicine 11/26/15 Team Status: Inactive Member Role Status Dates Elliot Starks MD Attending Provider Active Work From Home Relationship Specialty Start Date End Date Elliot Starks MD [address] [facility], [place] [id number] PCP - General Family Medicine 05/11/23 Work From Home Relationship Specialty Start Date End Date Elliot Starks MD [address] [facility], [place] [phone] PCP - General Family Medicine 05/11/23 Work From Home Relationship Specialty Start Date End Date Elliot Starks MD [address] [facility], [place] [phone] PCP - General Family Medicine 05/11/23 Work From Home Relationship Specialty Start Date End Date Elliot Starks MD [address] [place] [address] [place] [address] PCP - General Family Medicine 05/11/23 Work From Home Relationship Specialty Start Date End Date Elliot Starks MD [address] [place] [address] [place] [address] PCP - General Family Medicine 05/11/23 Work From Home Relationship Specialty Start Date End Date Elliot Starks MD [address] [place] [address] [place] [address] PCP - General Family Medicine 05/11/23 Work From Home Relationship Specialty Start Date End Date Elliot Starks MD [address] [place] [address] [place] [address] PCP - General Family Medicine 05/11/23 Work From Home Relationship Specialty Start Date End Date Elliot Starks MD [address] [place] [address] [place] [address] PCP - General Family Medicine 05/11/23 Work From Home Relationship Specialty Start Date End Date Elliot Starks MD [address] [place] [phone] PCP - General Family Medicine 11/26/15 Team [...] February 01, 2024 End: February 01, 2024 Team Status: Inactive Member Role Status Dates Elliot Starks MD Primary Care Provider Active Start: April 30, 2024 End: April 30, 2024 Chanel Majano APRN Attending Provider Active S tart: April 30, 2024 End: April 30, 2024 Team Status: Inactive Member Role Status Dates Elliot Starks MD Primary Care Provide r, Attending Provider Active Start: May 09, 2024 End: May 09, 2024 Work From Home Relationship Specialty Start Date End Date Elliot Starks MD [address] [place] [address] PCP - General 03/17/17 Work From Home Relationship Specialty Start Date End Date Elliot Starks MD [address] [place] [address] PCP - General 07/15/23 Work From Home Relationship Specialty Start Date End Date Elliot Starks MD [address] [place] [address] PCP - General 03/17/17 Work From Home Relationship Specialty Start Date End Date Elliot Starks MD [address] [place] [address] PCP - General 03/17/17 Work From Home Relationship Specialty Start Date End Date Elliot Starks MD [address] [place] [address] PCP - General 07/15/23 Work From Home Relationship Specialty Start Date End Date Elliot Starks MD [address] [place] [address] PCP - General 07/15/23 Work From Home Relationship Specialty Start Date End Date Elliot Starks MD [address] [place] [address] PCP - General 07/15/23 Team Status: Active Member Role Status Dates Elliot Starks MD Primary Care Provide r, Attending Provider Active Start: May 11, 2024 Team Status: Inactive Member Role Status Dates Elliot Starks MD Primary Care Provider Active Start: June 21, 2024 End: June 21, 2024 Chinedu Farley DO Attending Provider Active Sta rt: June 21, 2024 End: June 21, 2024 Goals (unrecognized section and content) Goals [...] day after surgery, Indications: Venous Thromboembolism, Post-op/Post-Proc 0904 (Given - Provid er: Dolly Liao RN) [...] 181 (Given - Provider: Marcella Lozano RN) 903 [...] use, Intra-op/Intra-Proc 1433 (Given - Provider: Whit Govea, RN) vancomycin (VANCOCIN) 1,000 mg in dextrose [...] RN)1514 ($$New Bag$$ - Provider: Damián Saenz APRN-SUPERVISOR LATHING)1647 (Stopped - Provider: Aidee Field RN) Sodium [...] 2 g, Intravenous, Administer over 15 Minutes, DISTRIBUTION ASSOCIATE TO PROCEDURE, 1 dose, Starting on Thu07/07/23 at 1003, Until Thu07/07/23 at 1409, Other, Pre-operative antibiotic, Pre-op/Pre-Proc 1354 (Given - Provider: Melchor Holcomb, OIL FIELD TESTER-[facility]) HYDROmorphone (DILAUDID) injection 0.5 mg 0.5 mg, [...] days, Post-op/Post-Proc 1646 (Given - Provider: Marcella Lozano, RICARDO)2103 (Given - Provider: Aidee Field, RICARDO) senna-docusate (SENOKOT-S) 8.6-50 MG per tablet 2 tablet 2 tablet, Oral, 2 TIMES DAILY NEEDED, Starting on Thu07/07/23 at 1637, Until 07/08/23 at 1920, constipation, Post-op/Post-Proc Sodium chloride 0.9 [...] Oral, ONCE DIRECTED, 1 dose, Starting on e 07/07/23 at 1003, Until 07/07/23 at 1042, See admin instructions, Administer 2 hours preop, Pre-op/Pre-Proc 1042 (Given - Provider: Chelsea Bledsoe, RICARDO) Zolpidem (AMBIEN) tablet 5 mg 5 mg, [...] BE BASED ON THE PRIMARY CLINICAL RECORDS. [email or web address] [facility]. provides no warranty or guarantee of the accuracy or completeness of information in this document.
--- NOTE | 2024-07-14 08:41 | P.CN_ITS ---
Consult Note: HPI Data of Consult Patient: known to practice within the last 3 years Requesting Physician: Larissa Turner NP Primary Care Provider: Marine Glass MD Consult Narrative Reason for consult: chronic back pain Narrative: Bettie Burns a pleasant 79 year old female presents for evaluation of chronic low back pain. Longstanding hx of low back and SIJ pain secondary to lumbar spondylosis, lumbar DDD, and sacroilitis. Pain unresponsive to >6 weeks of PT and provider guided HEP, heat, ice, tylenol, and she cannot take NSAIDs as she is on eliquis. denies falls or injury. Pain today 6-7/10 increasing to 8/10 with standing, walking, pushing, pulling, activity, and sleep. Pt currently utilizing mckenna ASA and baclofen 10mg TID PRN with mild relief. TEJA 58% with moderate to severe pain impacting ADLs, sitting, standing, walking, sleep, social life, and travel. Continues to f/u with orthopedics post right abductor hip repair 1 year ago. cc:: CC: Larissa Turner NP Review of Systems ROS Status of ROS 10 or more systems reviewed and unremark able except as noted in history and below Musculoskeletal Reports: back pain, extremity pain and joint pain PFSH [facility] Medical History (Updated 07/14/24 @ 08:45 by Larissa Turner NP) Neck pain ?M54.2 - Cervicalgia (ICD-10) Upper back pain ?M54.9 - Dorsalgia, unspecified (ICD-10) Low back pain ?M54.50 - Low back pain, unspecified (ICD-10) Osteoarthritis ?M19.90 - Unspecified osteoarthritis, unspecified site (ICD-10) H/O malignant neoplasm of breast ?Z85.3 - Personal history of malignant neoplasm of breast (ICD-10) Hearing deficit ?H91.90 - Unspecified hearing loss, unspecified ear (ICD-10) Former smoker ?Z87.891 - Personal history of nicotine dependence (ICD-10) Hypertension ?I10 - Essential (primary) hypertension (ICD-10) Atrial fibrillation ?I48.91 - Unspecified atrial fibrillation (ICD-10) Cataract ?H26.9 - Unspecified cataract (ICD-10) Surgical History Status post hip surgery ?Z98.890 - Other specified postprocedural states (ICD-10) H/O total hip arthroplasty ?Z96.649 - Presence of unspecified artificial hip joint (ICD-10) H/O cardiac catheterization ?Z98.890 - Other specified postprocedural states (ICD-10) History of cholecystectomy ?Z90.49 - Acquired absence of other specified parts of digestive tract (ICD- 10) H/O: hysterectomy ?Z90.710 - Acquired absence of both cervix and uterus (ICD-10) H/O foot surgery ?Z98.890 - Other specified postprocedural states (ICD-10) H/O eye surgery ?Z98.890 - Other specified postprocedural states (ICD-10) H/O shoulder surgery ?Z98.890 - Other specified postprocedural states (ICD-10) H/O breast surgery ?Z98.890 - Other specified postprocedural states (ICD-10) Social History Smoking status: Never smoker Meds Home Medications and Allergies Home Medications ?Medication ?Instructions ?Recorded ?Confirmed ?Type apixaban 5 mg tablet (Eliquis) 5 mg PO BID 10/28/22 04/04/24 History atenolol 50 mg tablet 75 mg PO DAILY 10/28/22 04/04/24 History baclofen 10 mg tablet 20 mg PO TID 10/28/22 04/04/24 History hydrochlorothiazide 25 mg tablet 25 mg PO DAILY 10/28/22 04/04/24 History lisinopril 20 mg tablet 20 mg PO DAILY 10/28/22 04/04/24 History neuveria vitamin DAILY 10/28/22 History temazepam 30 mg capsule 30 mg PO QPM 10/28/22 04/04/24 History trospium 20 mg tablet 20 mg PO Q12H 04/02/23 04/04/24 History aspirin 500 mg tablet (Mckenna 500 mg PO DAILY PRN pain 11/04/23 04/04/24 History Advanced) cyclosporine 0.05 % eye drops in a drp ophthalmic (eye) 11/04/23 History dropperette omeprazole 40 mg capsule,delayed 40 mg PO DAILY 11/04/23 04/04/24 History release vit C 250 mg-vit E 90 mg-zinc 40 1 tab PO BID 11/04/23 04/04/24 History mg-copper 1 [id number]-xrqvdx capsule (PreserVision AREDS-2) flecainide 50 mg tablet mg 12/14/23 History potassium chloride 10 mEq meq PO 12/14/23 History tablet,extended release baclofen 10 mg tablet 10 mg PO TID PRN muscle spasm #270 04/14/24 Rx tabs Allergies Allergy/AdvReac Type Severity Reaction Status Date / Time acetaminophen (From Vicodin) Allergy Severe itching Verified 04/04/24 07:17 hydrocodone (From Vicodin) Allergy Severe itching Verified 04/04/24 07:17 codeine Allergy Unknown Hives Verified 04/04/24 07:17 levofloxacin (From Levaquin) Allergy Unknown uticaria Verified 04/04/24 07:17 morphine Allergy Unknown uticaria Verified 04/04/24 07:17 Penicillins Allergy Unknown uticaria Verified 04/04/24 07:17 tramadol Allergy Unknown uticaria Verified 04/04/24 07:17 Exam Constitutional Documenting provider has reviewed patient's vital signs: yes Common normals: no apparent distress, oriented x3, healthy appearing, alert and well nourished General appearance: cooperative HENMT Common normals: normocephalic, hearing grossly normal bilaterally and moist oral mucous membranes Head and scalp: normocephalic Eye Common normals: PERRL Pupil: PERRL Neck & C-Spine Common normals: full ROM General: normal visual inspection Chest Common normals: inspection of chest normal Respiratory Common normals: normal respiratory effort, no retractions and no use of accessory muscles Back & Pelvis Lumbar spine/lower back: ROM limited, pain with ROM and lumbar spinal tenderness Lumbar spinal tenderness location: L3, L4 and L5 Sacroiliac joints: SI joint(s) abnormal Other: altered sensation to right L4,5,S1 strength 4/5 in RLE and 5/5 in LLE right sij positive jovanna(patricks), gaenslens, thigh thrust, compression test Neuro Common normals: oriented x3, CN's II-XII intact bilaterally, moves all extremities, no focal motor deficits, no sensory deficits noted and deep tendon reflexes 2+ bilaterally Sensorium/orientation: alert Motor exam: no movement abnormalities noted Psych Common normals: mental status grossly normal, thought process normal, cooperative, affect normal, speech normal and activity/motor behavior normal Speech: normal speech Thought process: normal thought process Results Additional Findings Additional findings: If on a controlled substance or opioids, I have checked an [place] report on this patient and there are no aberrancies noted in the prescribing history.??If on a controlled substance or opioid a drug screen was completed and reviewed within the last year, and if there has not been a drug screen completed we ordered one today to monitor higher risk, state monitored pain medication use. As part of providing excellent, safe, comprehensive care, the following was completed at our patient's visit: 1. A medication reconciliation and review to ensure accurate knowledge of current/active medications, including asking our patients to inform us about any xlrx-klc-[id number] medications or herbal remedies/nutritional supplements/alternative remedies. 2. A review to specifically ensure our patients have had annual screening for screening for depression, screening for tobacco use, and screening for unhealthy alcohol use. For concerning screenings had a discussion with the patient, provided patient education, and recommended follow-up with primary care provider when appropriate. If patient noted with a risk of falling, they received education on strength, gait, and balance training to prevent future risk of falling. Portions of this note may have been carried over from the previous visit and updated as appropriate. Please note this office utilizes paper charting in addition to the electronic medical record. A list of current medications, vitals, and PMH is available there as the clinical staff outside of myself do not have access to [facility] charting during the clinic day operations. As part of providing quality comprehensive care the current medications, vitals, and PMH were reviewed in the paper chart. Assessment and Plan Assessment and Plan (1) Lumbar stenosis with neurogenic claudication: (2) Sacroiliac joint dysfunction: (3) Sacroiliitis: (4) Myofascial pain: (5) Degenerative joint disease (DJD) of lumbar spine: (6) Lumbar spondylosis: Plan previously pt was not interested in further workup for chronic pain, at this time we will update lumbar MRI without contrast to assess lumbar stenosis with NC and lumbar DDD unresponsive to >6 weeks of PT and provider guided HEP, heat, ice, tylenol. Prior lumbar xray shows moderate degenerative changes. encouraged otc tylenol arthritis. continue baclofen 10mg TID PRN pain/spasms. continue HEP as tolerated. will consider right L4-5 L5-S1 TFESI and right SIJ injection in the future. f/u to review lumbar MRI
== END 2024-07-14 08:13 | disposition home or self-care (01) ==
LOC: PM 08:13
PROVIDERS: PCP Family Medicine; Visit Provider Nurse Practitioner
DX: M48.062 Spinal stenosis, lumbar region with neurogenic claudication (principal); M53.3 Sacrococcygeal disorders, not elsewhere classified; M46.1 Sacroiliitis, not elsewhere classified; M79.18 Myalgia, other site; M51.369 Other intervertebral disc degeneration, lumbar region without mention of lumbar back pain or lower extremity pain; M47.816 Spondylosis without myelopathy or radiculopathy, lumbar region
CPT/HCPCS: G0463

== ENCOUNTER 2024-07-18 07:24 | Outpatient (OUT) | payer MEDICARE, SELFPAY ==
--- NOTE | 2024-07-18 07:35 | CT_ITS ---
The [address] [address] Patient Name: NGUYEN MARQUEZ MRN: [id number] date: 1945 Sex: F Assigned Patient Location: LAB Current Patient Location: LAB Accession/Order Number: [id number] Exam Date: 07/18/2024 09:56 Report Date: 07/18/2024 10:00 At the request of: AXEL MERLOS MD Procedure: CT abdomen pelvis wo/w con CT ABDOMEN AND PELVIS WITH AND WITHOUT INTRAVENOUS CONTRAST: CLINICAL HISTORY: microscopic hematuria COMPARISON: None TECHNIQUE: Spiral images were obtained through the abdomen and pelvis before and after the administration of intravenous contrast. This CT exam was performed using one or more following dose reduction techniques: Automated exposure control, adjustment of the mA and/or kV according to patient size, or use of iterative reconstruction technique. FINDINGS: Lung Bases: [Bibasilar scarring.] Organs:Noncontrast images demonstrate a 3 mm stone involving the proximal right ureter with associated mild hydronephrosis. Subcentimeter hypodense lesions are seen within the left kidney too small for characterization. Postcontrast images demonstrate cystic changes involving the left kidney. No enhancing renal or collecting system mass. Opacified ureters appear grossly unremarkable. Visualized portions of the urinary bladder are grossly unremarkable.[ Gallbladder has been removed. Liver spleen pancreas and adrenal glands appear unremarkable. Aorta appears normal in caliber. GI: Stomach is grossly unremarkable. Small bowel appears nondilated. Left colon diverticulosis.[ Pelvis:[Suboptimal evaluation due to streak hardware artifact from the patient's right hip prosthesis. Uterus has been removed. No adnexal mass.] Peritoneum/Retroperitoneum:No free air or free fluid or lymphadenopathy.[ Abd wall/Bones:No acute findings. Osseous structures demonstrate degenerative change.[ CT/CT abdomen pelvis wo/w con IMPRESSION: 3 mm obstructing calculus proximal right ureter with associated mild hydronephrosis. Impression dictated by: David Giron Jr., D.O.07/18/2024 10:00 AM Dictation Location: [place] [address] Electronically authenticated by: [id number] Y Date: 07/18/2024 10:00
--- OUTSIDE RECORDS SUMMARY | 2024-07-18 07:35 | XMS_ITS | CCD ---
Author Organization [facility] Care Team Providers Care Mechanical Spreader Operator Name Role Phone PHYSICIAN, DEFAULT Unavailable Unavailable PHYSICIAN, DEFAULT Unavailable Unavailable Elliot Starks MD Primary Care Provider [phone] RAUDEL, DR ELLIOT Nayak Primary Care Unavailable [...] Care Provider MD Elliot Starks Attending Provider [phone] Elliot Starks Admitting Unavailable Elliot Starks Attending Unavailable ELLIOT STARKS Primary Care Physician Elliot Starks MD Primary Care Provider [phone] Melchor Rivera Admitting Unavail able Melchor Rivera Attending Unavail able Elliot Starks Primary Care Unavailable Ricci Perez Consulting Unavailable Elliot Starks MD Primary Care Provider ELLIOT STARKS Primary Care Unavailable FRANNY, EILEEN Attending Unavailable FRANNY, EILEEN Attending Unavailable EILEEN BLANTON Referring Unavailable ELLIOT STARKS Primary Care Unavailable DONNA DIAZ Attending Unavailable ELLIOT STARKS Referring Unavailable ELLIOT STARKS Primary Care Unavailable MIKO VASUQEZ Attending Unavailable ELLIOT STARKS Referring Unavailable ELLIOT STARKS Primary Care Unavailable ANDREW CHOI Referring Unavailable ELLIOT STARKS Primary Care Unavailable Agusto VILLEGAS, Daisy Dietz Attending Unavailable Giclaudy VILLEGAS, Andrius Vytautas Attending Unavailable Giedraitis , Andrius Vytautas Attending Unavailable Agusto VILLEGAS, Andrius Vytdannielle Attending Unavailable Giedrasrinivas VILLEGAS, Andrius Vytautbrendon Attending Unavailable Starks , Elliot Nayak Primary Care Provider [phone] Raudel VILLEGAS, Elliot Nayak Primary Care Provider [phone] Alfreda Miller Attending Unavailable Jacqui, Maria E Attending Unavailable Jacqui, Maria E Attending Unavailable Jacqui, Maria E Admitting Unavailable Jacqui, Maria E Attending Unavailable Jacqui, Maria E Admitting Unavailable STARKS, ELLIOT Primary Care Unavailable SELF, SELF Referring Unavailable BROCWELL, DIVINE M Attending Unavailable BROCWELL, DIVINE M Attending Unavailable STARKS, ELLIOT Primary Care Unavailable BROCWELL, DIVINE M Referring Unavailable BROCWELL, DIVINE M Attending Unavailable STARKS, ELLIOT Primary Care Unavailable BROCWELL, DIVINE M Referring Unavailable STARKS, ELLIOT Primary Care Unavailable PAULA FITZPATRICK Attending Unavailable AMARI, PAULA Referring Unavailable SELF, SELF Referring Unavailable AMARI, PAULA Attending Unavailable STARKS, ELLIOT Primary Care Unavailable MIKO OHARA Attending Unavailable MIKO OHARA Referring Unavailable STARKS, ELLIOT Primary Care Unavailable SELF, SELF Referring Unavailable MIKO OHRAA Attending Unavailable STARKS, ELLIOT Primary Care Unavailable BROCWELL, DIVINE M Referring Unavailable STARKS, ELLIOT Primary Care Unavailable BROCWELL, DIVINE M Attending Unavailable Allergies Allergy Classification Reported Allergen(s) Allergy Type Date of Onset Reaction(s) Facility (20 sources) Acetaminophen / HYDROcodone; Translations: [HYDROCODONE-ACET AMINOPHEN] Drug Allergy 03-19-20 17 Unknown, Itching, Nausea Only, Rash [facility] (20 sources) Baclofen; Translations: [baclofen] Drug Allergy 03-19-20 17 Unknown, Itching, Rash [facility] (20 sources) Codeine; Translations: [codeine] Drug Allergy 08-09-19 09 Unknown, Itching, Rash [facility] (20 sources) levoFLOXacin; Translations: [levofloxacin] Drug Allergy 03-19-20 17 Unknown, Itching, Nausea Only, Rash [facility] (20 sources) Morphine; Translations: [morphine] Drug All[facility] 08-09-19 [facility] oxyCODONE Drug Allergy 12-03-19 16 Hives [facility] (8 sources) Penicillins; Translations: [PENICILLINS] Drug Allergy 12-03-19 16 Hives, Rash [facility] (1 source) Baclofen Drug Allergy [facility] (1 source) Codeine Drug Allergy [facility] (14 sources) levoFLOXacin; Translations: [Levaquin] Drug Allergy Unknown [facility] (1 source) Morphine Drug Allergy 05-04-18 94 [facility] (1 source) oxyCODONE Drug Allergy 05-04-19 05 [facility] (1 source) Penicillins Drug allergy (disorder) 05-04-18 93 [facility] (3 sources) traMADol; Translations: [Ultram] Drug Allergy [facility] (11 sources) Codeine Drug Allergy Unknown Abaxia Other (16 sources) Penicillin; Translations: [penicillin] Drug Allergy Unknown [facility] (20 sources) traMADol; Translations: [tramadol] Drug Allergy 07-13-19 20 Itching [facility] (20 sources) zolpidem; Translations: [zolpidem] Drug Allergy 07-04-19 23 Unknown, Hives [facility] (11 sources) Penicillins Drug Allergy 12-03-19 16 Hives, [facility] (1 source) Non-steroidal anti-inflammatory agent Drug allergy 02-02-20 13 Unknown Abaxia Other (16 sources) sulfADIAZINE; Translations: [SULFADIAZINE] Drug Allergy 07-04-19 23 Comment:Sulfa [facility] (1 source) Ultram *ANALGESICS - OPIOID* Propensity to adverse reactions Unknown Abaxia Other (1 source) Vioxx *ANALGESICS - ANTI-INFLAMMATORY * Propensity to adverse reactions Unknown Abaxia Other (1 source) Penicillin G Benzathine & Proc Drug allergy Unknown Abaxia Other (1 source) Morphine Sulfate (Concentrate) *ANALGESICS - OPIOI Propensity to adverse reactions Unknown [facility] Other (1 source) Allergies Reconciled Propensity to adverse reactions Unknown Abaxia Other (1 source) patient allergy list reviewed by nurse or physicia Propensity to adverse reactions 02-02-20 13 Comment:Done Abaxia Other (1 source) Vicodin *ANALGESICS - OPIOID* Propensity to adverse reactions Unknown [facility] Other (5 sources) calcitonin Drug allergy 10-28-19 24 Unknown, [facility] (12 sources) Penicillins Propensity to adverse reactions to drug 05-14-19 24 [facility] (1 source) Acetaminophen / HYDROcodone; Translations: [Vicodin] Drug Allergy [facility] Repository (1 source) Adhesive Tape; Translations: [Tape] Propensity to adverse reactions (disorder) [facility] Repository (10 sources) Latex Propensity to adverse reactions to drug 06-19-19 24 [facility] (10 sources) *Adhesive Tape Propensity to adverse reactions 07-04-19 23 [facility] (8 sources) Cephalexin Drug Allergy 07-09-19 24 Nausea Only, Dry Mouth, [place] [facility] (11 sources) Adhesive agent; Translations: [ADHESIVE] Propensity to adverse reactions to drug (disorder) 07-04-19 23 [facility] (15 sources) rofecoxib; Translations: [ROFECOXIB] Drug Allergy 07-04-19 23 [facility] (11 sources) PENICILLIN G BENZATHIN,PROCAIN ; Translations: [PENICILLIN G BENZATHIN,PROCAIN ] Propensity to adverse reactions to drug (disorder) 07-04-19 23 [facility] (4 sources) Acetaminophen Drug Allergy 10-28-[address] [facility] (4 sources) HYDROcodone Drug Allergy 10-28-[address] [facility] (4 sources) Penicillin G Benzathine Allergy to substance 10-28-[address] [facility] (1 source) Morphine; Translations: [Morphine Sulfate] Drug Allergy [facility] Repository (1 source) zolpidem; Translations: [Ambien] Drug Allergy [facility] Repository Medications Current Medications Medication Drug [...] 30, 2024 10:34am Start: 08-31-2017 End: 01-05-2024 take 1 tablet by mouth twice daily Apixaban (Eliquis) 5 mg tablet Active 5 MG PO Twice daily April 30, 2024 10:32am take 2 tablets by mo uth every twelve hours apixaban 2.5 MG tablet Take 2 tablets by mouth every 12 hours. Active apixaban 2.5 MG tablet Take by mouth every 12 hours. 0 Active Comment on above: Take 5 mg by mouth t wice daily. ascorbic acid 226 mg / beta carotene [id number] unt / cuprous oxide 0.8 mg / dl-alpha tocopheryl acetate 200 unt / zinc oxide 34.8 mg oral capsule (3 sources) Vitamin C Start: 10-28-2023 take 1 capsule by mouth in the morning vitamins A,C,R-qesr-ijqxdv (ICAPS AREDS) 4,296 mcg-226 mg-90 mg capsule [...] 3 (three) times a day. PRN Active benzonatate 200 mg oral capsule (4 [...] 07/14/2023 Active clarithromycin 500 mg oral tablet (8 sources) Macrolide Antimicrobial Start: 07-23-2023 End: 07-22-2024 [...] 11:00pm docusate sodium 100 mg oral capsule (10 sources) Start: 07-07-2023 End: 2023 take 1 capsule by mouth twice daily Docusate 100 MG capsule Take 1 capsule by mouth 2 times daily. 60 capsule 07/07/2023 Active estradiol 0.1 mg/ml vaginal cream (9 sources) Estrogen Start: 02-11-2023 ESTRACE VAGINAL 0.1 MG/GM cream See Instructions, 42.5 gm, Refill(s) 3, apply pea size amount to urethra/inner vagina 3x/week x 1 month, then 2x/week for maintainence, [facility]/pharmacy #[id number], 165, cm, 02/11/23 10:41:00 EDT, Height/Length Dosing, 77.5, kg, 02/11/23 10:41:00 EDT, Weight Dosing 02/11/2023 Active Start: 02-11-2023 Estrace 0.1 mg /g Cream See Instructions, 42.5 gm, Refill(s) 3, apply pea size amount to urethra/inner vagina 3x/week x 1 month, then 2x/week for maintainence, [facility]/pharmacy #[id number], 165, cm, 02/11/23 10:41:00 EDT, Height/Length Dosing, 77.5, kg, 02/11/23 10:41:00 EDT, Weight Dosing Start Date: 02/11/23 Status: Ordered flecainide acetate 50 mg oral tablet (20 sources) Antiarrhythmic Start: 07-15-2023 End: 08-14-2023 take 1 tablet by mouth twice daily Flecainide 50 MG tablet Take 1 tablet by mouth Twice daily. 07/15/2023 Active Start: 07-15-2023 End: 08-06-2024 take 1 tablet by mouth in the morning, then take 1 tablet by mouth at bedtime flecainide (TAMBOCOR) 50 mg tablet Indications: Paroxysmal atrial fibrillation (CMS-HCC) Take 1 tablet (50 mg total) by mouth in the morning and 1 tablet (50 mg total) before bedtime. Do all this for 360 days. 180 tablet 3 08/12/2023 08/06/2024 Active Start: 10-06-2017 flecainide (TA MBOCOR) 100 [...] Status: Ordered take 1 tablet by mirza once daily Lisinopril 5 MG tablet Take [...] Daily, # 30 tab(s), Refills(s) 11, Pharmacy: [facility]/pharmacy #[id number], 165, cm, 02/11/23 10:41:00 EDT, Height/Length Dosing, 77.5, kg, 02/11/23 10:41:00 EDT, Weight Dosing Start Date: 02/11/23 Status: Ordered Multiple Vitamin (multivitamin) capsule (8 sources) take 1 capsule by mouth once [...] Name:Neuveria vitamin 1 qd 0 Active NON-FORMULARY (8 sources) NON-FORMULARY Me d Name:Neuveria vitamin 1 [...] total) by mouth in the morning. Active Omeprazole (PRIL OSEC) 40 mg capsule [...] sources) Serotonin-1b and Serotonin-1d Receptor Agonist Start: 05-23-2024 End: 05-23-2024 take 1 tablet by mouth once as needed for headache Sumatriptan Succinate 25 mg tablet Active 25 MG PO Once as needed for migraine headache May 23, 2024 1:02pm Start: 09-12-2016 SUMAtriptan 25 mg Tab 25 mg = 1 tab(s), Refills(s) 0 Start Date: 06/22/24 Status: Ordered Comment on above: Take 25 mg by [...] Bedtime, # 90 tab(s), Refills(s) 3, Pharmacy: [facility], 165, cm, 05/27/23 8:54:00 EST, Height/Length Dosing, 77.5, kg, 05/27/23 8:54:00 EST, Weight Dosing Start Date: 05/27/23 Status: Ordered Trospium Chlorid e Active Vitamins A,C,C-Vbja-Eblxmi (Preservision Areds) 4,296 mcg-226 mg-90 mg capsule (4 sources) Start: 10-28-2023 take 1 capsule by mouth twice daily Vitamins A,C,I-Lhvg-Xgajyi (Preservision Areds) 4,296 mcg-226 mg-90 mg capsule Active 1 CAP PO Twice daily October 27, 2023 11:00pm Start: 10-28-2023 take 1 capsule by [facility] twice daily Vitamins A,C,K-Kqaw-Svgckw (Preservision Areds) 4,296 mcg-226 mg-90 mg capsule Active 1 CAP PO Twice daily October 28, 2023 12:00am Completed/Discontinued Medications Medication Drug Class(es) Dates Sig (Normalized) Sig (Original) acetaminophen 500 mg oral tablet (11 sources) Start: 07-07-2023 End: 2023 take 1 [...] tab daily x 4 more days for Jul, Active bisacodyl 10 mg rectal suppository [...] Post-op/Post-Proc docusate sodium 50 mg / sennosides, chcf 8.6 mg oral tablet (1 source) Start: [...] 2:32pm oxyCODONE hydrochloride 5 mg oral tablet (6 sources) Opioid Agonist Start: 07-07-2023 End: 2023 [...] (20 sources) Start: 06-22-2024 Potassium Chlo ride (Fru-Puur-Ouo 10) 10 mEq oral tablet, extended release [...] Until Discontinued take 1 tablet by mirza every twenty-four [...] monobasic 96.4 mg/ml enema (1 source) Start: End: 1 enema, Rectal, DAILY NEEDED, Starting on Thu07/07/23 at 1637, Until Thu07/08/23 at 1920, Refractory Constipation, use per package instructions, Post-op/Post-Proc temazepam 30 mg oral capsule (20 sources) Benzodiazepine Start: End: take 1 capsule by mouth once [...] of device; implant or graft (2 sources) Joint pain; Translations: [Pain due to internal orthopedic prosthetic devices, implants and grafts, initial encounter] 05-14-2023 Episodic E Codes: Natural/environment (1 source) [...] fatigue; Translations: [Fatigue] Onset: 06-11-2022 Episodic Osteoarthritis (15 sources) Unspecified osteoarthritis, unspecified site; Translations: [Localized, primary osteoarthritis of the pelvic region and thigh] Onset: 06-11-2022 05-06-2023 Chronic Other aftercare (1 source) Other tank terminal gauger (current) drug therapy; Translations: [OTH RETIREMENT CURRENT DRUG THERAPY] Onset: 06-11-2022 Episodic Other aftercare (2 sources) Long-term current use of anticoagulant; Translations: [correction (current) use of anticoagulants] Onset: 02-11-2023 Episodic Other bone disease and musculoskeletal deformities (12 sources) Other specified disorders of bone, shoulder; Translations: [Pain of right scapula] Episodic Other connective tissue disease (10 sources) History of repair of hip joint; Translations: [Presence of unspecified artificial hip joint] Onset: 2023 2023 Chronic Other connective tissue disease (2 sources) History of total replacement of right hip joint; Translations: [Presence of right artificial hip joint] 11-16-2023 Chronic Other connective tissue disease (2 sources) Presence of right artificial hip joint; Translations: [Presence of right artificial hip joint] Onset: 07-14-2024 Chronic Other diseases of bladder and urethra [...] (1 source) Irregular Heart Rate Onset: 07-15-2023 Urinary tract infections (19 sources) Urinary tract infection, site not specified; Translations: [Acute urinary tract infection] Onset: 06-11-2022 Episodic Viral infection (12 sources) Disease caused by 2019-nCoV; Translations: [COVID-19] Past or Other Problems Problem Classification Problem Date Documented Date Episodic/Chronic Cardiac dysrhythmias (10 sources) Palpitations; Translations: [Palpitations] Onset: 06-30-2018 08-16-2021 Episodic Coronary atherosclerosis and other heart disease (13 sources) Atherosclerotic heart disease of [place] coronary artery without angina pectoris; Translations: [Coronary [...] Onset: 05-12-2018 Resolved: 08-16-2021 05-12-2018 Episodic Other non-traumatic joint disorders (3 sources) Pain in right hip; Translations: [Hip pain, right] Onset: 08-20-2023 Episodic Other nutritional; endocrine; and metabolic disorders [...] Translations: [Pneumonia, unspecified organism] Onset: 12-11-2016 Episodic Sprains and strains (4 sources) Tendon rupture - hip; Translations: [Strain of muscle, fascia and tendon of right hip, initial encounter] Onset: 07-23-2023 07-07-2023 Episodic Unclassified (6 sources) Lumbar back pain; Translations: [Lumbar back pain] Unclassified (1 source) Right lumbar pain M54.50 Unclassified (1 source) History of total replacement of right hip joint 07-15-2024 Results Test Name Value Interpretation Reference Range Facility C Urineon 06-24-2024 Bacteria identified Cx Nom (U) Microbiology PROCEDURE: Urine Culture [R1] SOURCE: U Random BODY SITE: COLLECTED DATE/TIME: 06/22/2024 13:48 EST RECEIVED DATE/TIME: 06/22/2024 18:48 EST START DATE/TIME: 06/22/2024 18:48 EST FREE TEXT SOURCE: Maria E Osman PA-C, PA-C, Maria E FINAL REPORTS Final Report [] Verified Date/Time: 06/24/2024 10:59 EST No growth at 2 days. Performing Locations R1: This test was performed at: [facility], [address] [place] [address], [facility] , , Normal [facility] Comment on above: Performed By: #### [id number] #### [facility] [address] [place] [address] Ambulatory Visit Summaryon 0 06-22-2024 Ambulatory Visit Summary Ambulatory Visit Summary BETTIE BURNS :1945 Visit Date:06/22/2024 Ambulatory Visit Instructions Your Diagnosis Mixed incontinence Frequent UTI Microscopic hematuria Anticoagulated History of breast cancer Former smoker Your Care Team Attending Physician - Maria E Osman PA-C Primary Care Physician - ELLIOT STARKS MD [...] 40 mg Cap-DR) potassium chloride (Potassium Chloride (Ldm-Vwbh-Lvl 10) 10 mEq oral tablet, extended release) [...] 1 Capsules Unchanged potassium chloride (Potassium Chloride (Sxw-Bruo-Osz 10) 10 mEq oral tablet, extended release) [...] for choosing us for your care. Normal [facility] URINALYSISOrdered By: Tien Lyon on 06-22-2024 Bacteria Auto Ql (U) 1+ /HPF Invalid Interpretation Code Trace/HPF [facility] UA Auto SS Bilirubin Ql (U) Negative Normal Negativemg/ d L [facility] UA Auto SS Clarity (U) Clear (06/22/24 1:48 PM) Normal Clear [facility] UA Auto SS Color (U) Light-Yellow 1 (06/22/24 1:48 PM) Normal Yellow [facility] UA Auto SS Comment on above: Interpretive Data: M icroscopic readings are only performed on those samples that meet specific criteria set forth by [facility]. Epithelial cells.squamous Auto (Urine sed) [#/Area] 0-2 graded/HPF Invalid Interpretation Code [facility] UA Auto SS Glucose Ql (U) Negative [...] Protein Ql (U) Negative Normal Negativemg/d L [facility] UA Auto SS RBC Ql (U) 4-20 graded/HPF Invalid Interpretation Code 0-3graded/HP F [facility] UA Auto SS Specific gravity (U) [Rel density] 1.013 *NA* (06/22/24 1:48 PM) Invalid Interpretation Code 1.005 - 1.030 [facility] UA Auto SS Urobilinogen (U) [Mass/Vol] Negative Normal Negativemg/d L [facility] UA Auto SS WBC Auto (Urine sed) [#/Area] 31-75 *ABN* (06/22/24 1:48 PM) Invalid Interpretation Code 0-5 [facility] UA Auto SS URINALYSISOrdered By: Catina Corona on 06-22-2024 UA Spec Desc Random Urine (06/22/24 1:48 PM) Normal [facility] UA Auto SS Urinalysis with Microon 06-04 Bacteria Auto Ql (U) 1+ /HPF Abnormal Trace [facility] Comment on above: Performed By: #### 4 [id number] #### [facility] [address] [place] [address] Bilirubin Ql (U) Negative Normal Negative [facility] Comment on above: Performed By: #### 4 [id number] #### [facility] [address] [place] [address] Clarity (U) Clear Normal Clear [facility] Comment on above: Performed By: #### 4 [id number] #### [facility] [address] [place] [address] Color (U) Light-Yellow Normal Yellow [facility] Comment on above: Result Comment: Micr oscopic readings are only performed on those samples that meet specific criteria set forth by [facility]. Performed By: #### 4 [id number] #### [facility] [address] [place] [address] Epithelial cells.squamous Auto (Urine sed) [#/Area] 0-2 Invalid Interpretation Code [facility] Comment on above: Performed By: #### 4 [id number] #### [facility] [address] [place] [address] Glucose Ql (U) Negative Normal Negative [facility] Comment on above: Performed By: #### 4 [id number] #### [facility] [address] [place] [address] Hemoglobin Auto test strip (U) [Mass/Vol] 2+ Abnormal Negative [facility] Comment on above: Performed By: #### 4 [id number] #### [facility] [address] [place] [address] Ketones Auto test strip Ql (U) Negative Normal Negative [facility] Comment on above: Performed By: #### 4 [id number] #### [facility] [address] [place] [address] Leukocyte esterase Auto test strip Ql (U) 250 Felipe/uL Abnormal Negative [facility] Comment on above: Performed By: #### 4 [id number] #### [facility] [address] [place] [address] Mucus Auto Ql (U) Negative Normal Negative [facility] Comment on above: Performed By: #### 4 [id number] #### [facility] [address] [place] [address] Nitrite Auto test strip Ql (U) Negative Normal Negative [facility] Comment on above: Performed By: #### 4 [id number] #### [facility] [address] [place] [address] pH (U) 6.0 [pH] Invalid Interpretation Code 5.0-9.0 [facility] Comment on above: Performed By: #### 4 [id number] #### [facility] [address] [place] [address] Protein Ql (U) Negative Normal Negative [facility] Comment on above: Performed By: #### 4 [id number] #### [facility] [address] [place] [address] RBC Ql (U) 4-20 Abnormal 0-3 [facility] Comment on above: Performed By: #### 4 [id number] #### [facility] [address] [place] [address] Specific gravity (U) [Rel density] 1.013 Invalid Interpretation Code 1.005-1.030 [facility] Comment on above: Performed By: #### 4 [id number] #### [facility] [address] [place] [address] Urobilinogen (U) [Mass/Vol] Negative Normal Negative [facility] Comment on above: Performed By: #### 4 [id number] #### [facility] [address] [id number] WBC Auto (Urine sed) [#/Area] 31-75 Abnormal 0-5 [facility] Comment on above: Performed By: #### 4 [id number] #### [facility] [address] [place] [address] Type of Urine collection method Random Urine Normal [facility] Comment on above: Performed By: #### 4 [id number] #### [facility] [address] [place] [address] Urology Office/Clinic Noteon 06-22-2024 Urology Office/Clinic Note [...] well nourished, in no acute distress. Assessment/Plan [facility] patient, last seen in-office 05/27/23 78 y/o [...] pending completion of cystoscopy w/ KML Ordered: 00112 Measure Post Void residual urine and/or bladder [...] Urnls Dip Stick Auto w/o Microscopy POC 50776 2. Frequent UTI (N39.0: Urinary tract infection, [...] UTIs for (more content not included)... 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 MAMM SCREENING BILATERAL W CAD MAMM [...] 2:57 PM 2 a FU ACR Normal [facility] 09-17-2023 CNPN Telephone (HEMASA) BETTIE BURNS ([id number]) 1945 F Date Time Provider Department 09/17/23 MATT ADAMS During your visit today, we recorded the following information about you: Matt Adams RN 09/17/2023 10:20 AM Signed Pt called to request yearly Mammogram order I have pended order as previously completed Pt requests to fax to Nori Lema [phone] BRM/HM: please review and sign if agreeable RICARDO Lopez Natalie, RN 09/17/2023 1:31 PM [facility] Matt Adams RN Allergies [...] mammogram for malignant neoplasm of breast [Z12.31] Order(s):SHANE SCREENING W YAW [[id number]] Order #: [id number] FUTURE Prescriptions as of 09/17/2023 - lisinopril [...] Status:Closed by ANDREW CHOI on 09/17/23 Normal [facility] CBC AND AUTO DIFFon 07-15-19 ABSOLUTE BASOPHIL 0.1 X10E9/L Normal 0.0-0.2 [facility] Comment on above: Performed By: #### C BCA, 65160-8, PINR, 69461-7, CMP, 48459-5, 02795-5, THYR, 19028-5 #### [facility] ([id number]) [address] [place] [address] 20808 ABSOLUTE NEUTROPHIL 2.8 X10E9/L Normal 1.5-6.6 [facility] Comment on above: Performed By: #### C BCA, 93306-0, PINR, 54672-6, CMP, 49409-4, 52999-9, THYR, 27303-2 #### [facility] ([id number]) [address] [place] [address] 46692 Basophils/100 WBC (Bld) 1.3 % Normal [facility] Comment on above: Performed By: #### C BCA, 60897-9, PINR, 57261-8, CMP, 28130-5, 30359-1, THYR, 42697-7 #### [facility] ([id number]) [address] [place] [address] 05240 Eosinophils (Bld) [#/Vol] 0.7 10*3/uL High 0.0-0.4 [facility] Comment on above: Performed By: #### C BCA, 99167-4, PINR, 63577-5, CMP, 02759-4, 69786-5, THYR, 11842-2 #### [facility] ([id number]) [address] [place] [address] 25398 Eosinophils/100 WBC (Bld) 11.9 % Normal [facility] Comment on above: Performed By: #### C BCA, 11254-7, PINR, 00511-9, CMP, 24431-3, 28109-3, THYR, 01239-1 #### [facility] ([id number]) [address] [place] [address] 02763 Erythrocyte distribution width (RBC) [Ratio] 13.5 % Normal 11.5-15.0 [facility] Comment on above: Performed By: #### C BCA, 41038-0, PINR, 29840-2, CMP, 98104-7, 53393-9, THYR, 95155-5 #### [facility] ([id number]) [address] [place] [address] 37106 Hematocrit (Bld) [Volume fraction] 38.5 % Normal 35-47 [facility] Comment on above: Performed By: #### C BCA, 82477-8, PINR, 46482-8, CMP, 93684-2, 65310-2, THYR, 91528-9 #### [facility] ([id number]) [address] [place] [address] 67680 Hemoglobin (Bld) [Mass/Vol] 13.3 g/dL Normal 11.7-15.5 [facility] Comment on above: Performed By: #### C BCA, 22814-2, PINR, 29393-1, CMP, 49897-6, 91507-1, THYR, 54199-3 #### [facility] ([id number]) [address] [place] [address] 93119 Lymphocytes (Bld) [#/Vol] 1.8 10*3/uL Normal 1.0-3.5 [facility] Comment on above: Performed By: #### C BCA, 97057-4, PINR, 17332-7, CMP, 96475-7, 61725-9, THYR, 42504-4 #### [facility] ([id number]) [address] [place] [address] 80310 Lymphocytes/100 WBC (Bld) 29.4 % Normal [facility] Comment on above: Performed By: #### C BCA, 02573-0, PINR, 01354-1, CMP, 43824-7, 95630-3, THYR, 86940-0 #### [facility] ([id number]) [address] [place] [address] 39245 MCH (RBC) [Entitic mass] 32.8 pg Normal 27-34 [facility] Comment on above: Performed By: #### C BCA, 84567-6, PINR, 52048-2, CMP, 03045-0, 58484-8, THYR, 44175-2 #### [facility] ([id number]) [address] [place] [address] 20732 MCHC (RBC) [Mass/Vol] 34.4 g/dL Normal 32-36 [facility] Comment on above: Performed By: #### C BCA, 72407-4, PINR, 44988-2, CMP, 75296-2, 72926-9, THYR, 49203-3 #### [facility] ([id number]) [address] [place] [address] 05624 MCV (RBC) [Entitic vol] 95 fL Normal 80-100 [facility] Comment on above: Performed By: #### C BCA, 25533-3, PINR, 60708-9, CMP, 71808-9, 30384-4, THYR, 53803-0 #### [facility] ([id number]) [address] [place] [address] 42897 Monocytes (Bld) [#/Vol] 0.8 10*3/uL Normal 0-0.9 [facility] Comment on above: Performed By: #### C BCA, 54667-7, PINR, 21634-2, CMP, 87423-1, 17581-7, THYR, 88744-1 #### [facility] ([id number]) [address] [place] [address] 64911 Monocytes/100 WBC (Bld) 13.2 % Normal [facility] Comment on above: Performed By: #### C BCA, 00049-7, PINR, 01225-9, CMP, 95362-7, 55169-2, THYR, 46828-5 #### [facility] ([id number]) [address] [place] [address] 30897 Neutrophils/100 WBC (Bld) 44.2 % Normal [facility] Comment on above: Performed By: #### C BCA, 62875-5, PINR, 39851-8, CMP, 88124-5, 99161-6, THYR, 94644-7 #### [facility] ([id number]) [address] [place] [address] 02469 Platelet mean volume (Bld) [Entitic vol] 6.9 fL Low 7-12 [facility] Comment on above: Performed By: #### C BCA, 60033-4, PINR, 70062-5, CMP, 43291-1, 84853-6, THYR, 78350-0 #### [facility] ([id number]) [address] [place] [address] 35569 Platelets (Bld) [#/Vol] 340 10*3/uL Normal 150-450 [facility] Comment on above: Performed By: #### C BCA, 88671-8, PINR, 20018-6, CMP, 41643-8, 56577-6, THYR, 82734-3 #### [facility] ([id number]) [address] [place] [address] 26571 RBC COUNT 4.05 X10E12/L Normal 3.80-5.20 [facility] Comment on above: Performed By: #### C BCA, 19655-1, PINR, 18576-1, CMP, 83139-9, 06323-6, THYR, 76953-0 #### [facility] ([id number]) [address] [place] [address] 32729 WBC (Bld) [#/Vol] 6.2 10*3/uL Normal 4.0-11.0 [facility] Comment on above: Performed By: #### C BCA, 69659-2, PINR, 22185-9, CMP, 70294-7, 16982-1, THYR, 22479-6 #### [facility] ([id number]) [address] [place] [address] 46833 COMPREHENSIVE METABOLIC PANE Roland 07-15-2023 Albumin [Mass/Vol] 3.5 g/dL Normal 3.2-5.3 [facility] Comment on above: Performed By: #### C BCA, 35772-4, PINR, 26956-0, CMP, 25843-6, 37477-8, THYR, 33340-0 #### [facility] ([id number]) [address] [place] [address] 20590 ALP [Catalytic activity/Vol] 52 U/L Normal 39-130 [facility] Comment on above: Performed By: #### C BCA, 90206-6, PINR, 92741-8, CMP, 25730-3, 13446-6, THYR, 55069-9 #### [facility] ([id number]) [address] [place] [address] 25838 ALT [Catalytic activity/Vol] 13 U/L Normal 0-31 [facility] Comment on above: Performed By: #### C BCA, 08354-0, PINR, 82529-3, CMP, 16693-0, 44313-5, THYR, 64107-5 #### [facility] ([id number]) [address] [place] [address] 32114 Anion gap [Moles/Vol] 10 mmol/L Normal 5-15 [facility] Comment on above: Performed By: #### C BCA, 74916-1, PINR, 49588-1, CMP, 30611-9, 66479-6, THYR, 42337-8 #### [facility] ([id number]) [address] [place] [address] 18080 AST [Catalytic activity/Vol] 24 U/L Normal 0-41 [facility] Comment on above: Performed By: #### C BCA, 21206-6, PINR, 29307-5, CMP, 75151-7, 38197-7, THYR, 28332-2 #### [facility] ([id number]) [address] [place] [address] 97550 Bilirubin [Mass/Vol] 0.7 mg/dL Normal 0.3-1.2 [facility] Comment on above: Performed By: #### C BCA, 01694-3, PINR, 76324-0, CMP, 68244-6, 63804-5, THYR, 36697-6 #### [facility] ([id number]) [address] [place] [address] 94431 Calcium [Mass/Vol] 9.4 mg/dL Normal 8.5-10.5 [facility] Comment on above: Performed By: #### C BCA, 39591-8, PINR, 65465-3, CMP, 20214-8, 85782-6, THYR, 48782-5 #### [facility] ([id number]) [address] [place] [address] 05380 Chloride [Moles/Vol] 102 mmol/L Normal 98-109 [facility] Comment on above: Performed By: #### C BCA, 50868-3, PINR, 46138-7, CMP, 60066-6, 01271-3, THYR, 27165-5 #### [facility] ([id number]) [address] [place] [address] [place] [address] CO2 [Moles/Vol] 27 mmol/L Normal 22-32 [facility] Comment on above: Performed By: #### C BCA, 18659-8, PINR, 04247-0, CMP, 97825-8, 00224-4, THYR, 26490-5 #### [facility] ([id number]) [address] [place] [address] [place] [address] Creatinine [Mass/Vol] 1.21 mg/dL High 0.40-1.00 [facility] Comment on above: Result Comment: METH OD TRACEABLE TO IDMS STANDARD Performed By: #### C BCA, 49368-2, PINR, 49051-8, CMP, 98275-7, 33504-8, THYR, 81176-2 #### [facility] ([id number]) [address] [place] [address] 53478 GFR/1.73 sq M.predicted among non-blacks MDRD (S/P/Bld) [Vol rate/Area] 46 mL/min/{1.73_m2} Low >59 [facility] Comment on above: Result Comment: Reported eGFR is based on the CKD-EPI 2020 equation that does not use a race coefficient. Performed By: #### C BCA, 99149-1, PINR, 04496-2, CMP, 35056-2, 51653-2, THYR, 41239-5 #### [facility] ([id number]) [address] [place] [address] 86904 Glucose [Mass/Vol] 120 mg/dL High 65-99 [facility] Comment on above: Performed By: #### C BCA, 11496-0, PINR, 81391-5, CMP, 18928-2, 72036-4, THYR, 95471-5 #### [facility] ([id number]) [address] [place] [address] 17888 Potassium [Moles/Vol] 4.0 mmol/L Normal 3.5-5.0 [facility] Comment on above: Performed By: #### C BCA, 66258-7, PINR, 16894-6, CMP, 11360-0, 10600-0, THYR, 96835-5 #### [facility] ([id number]) [address] [place] [address] 86425 Protein [Mass/Vol] 6.8 g/dL Normal 6.0-8.0 [facility] Comment on above: Performed By: #### C BCA, 80575-6, PINR, 01837-5, CMP, 93554-5, 12459-4, THYR, 65395-1 #### [facility] ([id number]) [address] [place] [address] 43335 Sodium [Moles/Vol] 139 mmol/L Normal 134-146 [facility] Comment on above: Performed By: #### C BCA, 89811-8, PINR, 96945-4, CMP, 94239-1, 91975-4, THYR, 81806-3 #### [facility] ([id number]) [address] [place] [address] 79457 Urea nitrogen [Mass/Vol] 31 mg/dL High 5-27 [facility] Comment on above: Performed By: #### C BCA, 74093-7, PINR, 36692-7, CMP, 50776-0, 91436-6, THYR, 62814-2 #### [facility] ([id number]) [address] [place] [address] 41310 Fibrin D-dimer DDU (PPP) [Ma ss/Vol]on 07-15-2023 D DIMER 220 ng/mL DDU Normal <255 [facility] Comment on above: Result Comment: Results <255 ng/mL DDU: The presence of a VTE can safely be excluded with a negative D-Dimer result and Wells score. A negative result doesn't exclude the possibility of DIC. The test be repeated along with other diagnostic tests if the patient's symptoms persist or worsen. [email or web address] Performed By: #### C BCA, 64659-4, PINR, 52631-7, CMP, 35638-3, 25010-5, THYR, 29519-7 #### [facility] ([id number]) [address] [place] [address] 74319 MAGNESIUMon 07-15-2023 Magnesium [Mass/Vol] 1.8 mg/dL Normal 1.8-2.6 [facility] Comment on above: Performed By: #### C BCA, 03248-5, PINR, 62889-0, CMP, 40241-0, 84572-9, THYR, 30606-8 #### [facility] ([id number]) [address] [place] [address], [place] [address] Natriuretic peptide B [Mass/ Vol]on 07-15-2023 Natriuretic peptide B (Bld) [Mass/Vol] 119 pg/mL High <100.0 [facility] Comment on above: Performed By: #### C BCA, 60027-8, PINR, 43229-4, CMP, 85968-2, 82166-2, THYR, 54665-7 #### [facility] ([id number]) [address] [place] [address], [place] [address] PROTIME AND INRon 07-15-2023 INR Coag (PPP) [Relative time] 1.8 {INR} High 0.8-1.1 [facility] Comment on above: Performed By: #### C BCA, 57639-8, PINR, 86095-8, CMP, 34224-5, 16736-4, THYR, 26321-8 #### [facility] ([id number]) [address] [place] [address], [place] [address] PT Coag (PPP) [Time] 20.8 s High 9.8-13.2 [facility] Comment on above: Result Comment: NEW REFERENCE RANGE Performed By: #### C BCA, 00037-9, PINR, 11805-3, CMP, 26785-7, 56988-7, THYR, 89887-1 #### [facility] ([id number]) [address] [place] [address], [place] [address] THYROID PROFILEon 07-15-2023 Free T4 [Mass/Vol] 1.25 ng/dL Normal 0.61-1.60 [facility] Comment on above: Performed By: #### C BCA, 00980-4, PINR, 32454-3, CMP, 52594-1, 86525-3, THYR, 02541-2 #### [facility] ([id number]) [address] [place] [address] 58910 TSH 1.69 uIU/mL Normal 0.49-4.67 [facility] Comment on above: Performed By: #### C BCA, 65586-9, PINR, 56223-3, CMP, 13545-4, 37661-7, THYR, 60399-5 #### [facility] ([id number]) [address] [place] [address] 58972 TROPONIN Ion 07-15-2023 Troponin I.cardiac [Mass/Vol] 0.01 ng/mL Normal 0.00-0.04 [facility] Comment on above: Performed By: #### C BCA, 61713-9, PINR, 98535-7, CMP, 25368-5, 01506-8, THYR, 40308-4 #### [facility] ([id number]) [address] [place] [address] 45291 XR CHEST 2 VWSon 07-15-2023 XR CHEST 2 VWS XR CHEST 2 VWS History: chest pressure Exam/Technique: PA and lateral chest Comparison: None. Findings: There is no evidence of active pulmonary or pleural disease. Cardiac and mediastinal contours are within normal limits. Left-sided surgical clips. Granulomatous changes. IMPRESSION: No active pulmonary disease. Finalized by Adrian Ervin MD on 07/15/2023 1:14 PM Normal [facility] aPTT Coag (PPP) [Time]on aPTT Coag (Bld) [Time] 36 s Normal 26-37 [facility] Comment on above: Result Comment: NEW REFERENCE RANGE Performed By: #### C BCA, 48345-2, PINR, 93748-3, CMP, 59444-9, 51611-4, THYR, 93229-4 #### [facility] ([id number]) [address] [facility] [place]NOTE 2], [place] [address] BASIC METABOLIC PANELon Anion gap [Moles/Vol] 1 mmol/L MMOL/L [facility] Calcium [Mass/Vol] 8.7 mg/dL [facility] Chloride [Moles/Vol] 103 mmol/L [facility] Comment on above: Please note: Triglyc eride levels of 600mg/dL or higher may positively bias chloride results by approximately 2.1 mmol CO2 [Moles/Vol] 30 mmol/L [facility] Creatinine [Mass/Vol] 1.10 mg/dL [facility] GFR COMMENT Average GFR for 70+ years [...] (S/P/Bld) [Vol rate/Area] 62 mL/min/{1.73_m2} ml/min/1.73s q.m [facility] GFR/1.73 sq M.predicted among non-blacks MDRD (S/P/Bld) [Vol rate/Area] 51 mL/min/{1.73_m2} ml/min/1.73s q.m [facility] Glucose post fast [Mass/Vol] 141 mg/dL High [facility] Comment on above: NORMAL <100 mg/dL PREDIABETES 101-126 mg/dL DIABETES 126 mg/dL or higher Interpretation and review of laboratory results Abnormal [facility] Potassium [Moles/Vol] 3.8 mmol/L [facility] Sodium [Moles/Vol] 134 mmol/L Low [facility] Urea nitrogen [Mass/Vol] 30 mg/dL High [facility] CBC, EDIF, PLATELETon 2023 ABSOLUTE BASOPHIL COUNT 0.0 10*3/uL 0.0 - 0.2 10*3/uL [facility] Basophils/100 WBC (Bld) 0.3 % 0.0 - 2.0 % [facility] Differential cell count method Nom (Bld) AUTO DIFF % [facility] Eosinophils (Bld) [#/Vol] 0.0 10*3/uL 0.0 - 0.7 10*3/uL [facility] Eosinophils/100 WBC (Bld) 0.0 % 0.0 - 11.0 % [facility] Erythrocyte distribution width (RBC) [Ratio] 13.2 % 11.5 - 14.5 % [facility] Hematocrit (Bld) [Volume fraction] 33.6 % Low 36.0 - 48.0 % [facility] Hemoglobin (Bld) [Mass/Vol] 12.0 g/dL [facility] Interpretation and review of laboratory results Abnormal [facility] Lymphocytes (Bld) [#/Vol] 1.1 10*3/uL Low 1.2 - 3.4 10*3/uL [facility] Lymphocytes/100 WBC (Bld) 16.4 % Low 20.0 [...] [#/Vol] 5.2 10*3/uL 1.4 - 6.5 10*3/uL [facility] Neutrophils/100 WBC (Bld) 79.0 % High 37.0 - 75.0 % [facility] Platelet mean volume (Bld) [Entitic vol] 7.0 fL Low [facility] Platelets (Bld) [#/Vol] 226 10*3/uL 130 - 400 10*3/uL [facility] RBC (Bld) [#/Vol] 3.57 10*6/uL Low 4.0 - 5.4 10*6/uL [facility] WBC (Bld) [#/Vol] 6.6 10*3/uL 3.6 - 11.0 10*3/uL [facility] BODY FLUID CELL COUNTon Appearance (Body fld) HAZY [facility] Color (Body fld) LIGHT YELLOW [facility] RBC Auto (Body fld) [#/Vol] 3376 /CMM [facility] Specimen source Nom (Body fld) SYNOVIAL FLUID [facility] WBC (Body fld) [#/Vol] 57 10*3/uL /CMM [facility] DIFFERENTIAL, FLUIDon 2023 BASOPHILS, FLUID 2 % [facility] Comment on above: NO REFERENCE RANGE E [...] on above: NO REFERENCE RANGE E STABLISHED [facility] REPEAT ABO/RH (D) TYPINGon 0 07-07-2023 ABO and Rh group Nom (Bld ) Positive [facility] SCREEN: MRSA ONLY, NARES (IS OLATION SCREEN)on 07-07-2023 MRSA isol Org specific cx Ql (Nose) Negative NEGATIVE [facility] STAPHYOCOCCUS AUREUS BY PCR Negative NEGATIVE [facility] Comment on above: TESTING PERFORMED BY PCR [facility] XR Pelvis 2 Viewson 07-07-19 FINDINGS/IMPRESSION: 1. [...] or other acute bony abnormality is seen. [facility] Study observation (narrative) [facility] XR Pelvis 2 ViewsOrdered By: Parveen Mason on 07-07-2023 [facility] Work Phone: POCT EKGOrdered By: Samantha Gurrola on 06-02-2023 [employer] COBALT AND CHROMIUM,WBon Chromium (Bld) [Mass/Vol] 1.1 [facility] Comment on above: Reference range: <3. 0 Unit: ng/mL PERFORMED BY [employer] [place] (Bld) [Mass/Vol] <1.0 [facility] Comment on above: Reference range: <3. 0 Unit: ng/mL (NOTE) Chromium and cobalt analysis performed by inductively coupled plasma/mass spectrometry (ICP/MS). Reference range is for patients with bwxlb-gl-fqewn (MoM) orthopedic implants. The [place] [employer] of Hip and Knee Surgeons, the [place] [employer] Orthopaedic Surgeons, and The Hip Society, have published a consensus statement, Risk Stratification Algorithm for Management of Patients with Wvzdj-ss-Agxci Hip Arthroplasty. The algorithm is intended as an aid to orthopedic surgeons in the assessment and management of patients with Nheye-vo-Engho bearings. The systematic risk stratification includes recommendations [...] developed and its performance characteristics determined by [employer]. It has not been cleared or approved by the Food and Drug Administration. [facility] C REACTIVE PROTEINon 024 CRP [Mass/Vol] 48.4 mg/L High 0 - 10 MG/L [facility] Interpretation and review of laboratory results Abnormal [facility] SEDIMENTATION RATE, AUTOMATE Don 05-14-2023 ESR (Bld) [Velocity] 31 mm/h High [facility] Interpretation and review of laboratory results Abnormal [facility] Urinalysis - DIPSTICKon 10-03 Appearance (U) cloudy [employer] Other Bilirubin Ql (U) [employer] Other Color (U) yellow [employer] Other Glucose Ql (U) Negative [employer] Other Hemoglobin Ql (U) [employer] Other Ketones Ql (U) Negative [employer] Other Leukocyte esterase Test strip Ql (U) moderate [employer] Other Nitrite Ql (U) Positive [employer] Other pH (U) 5 [pH] [employer] Other Protein Ql (U) Negative [employer] Other Specific gravity (U) [Rel density] 1.010 [employer] Other Urobilinogen (U) [Mass/Vol] off chart [facility] Other Urinalysis - DIPSTICK [employer] Other Urine Cultureon 10-27-2022 Bacteria identified Cx Nom (U) ORGANISM: Escherichia coli (O:ESCCOL) [place] Count >100,000 Aerobic AUBREY Charge (NMIC56) --- [...] RESISTANT TO ALL B-LACTAM DRUGS. PERFORMED BY: [place] [address] PATHOLOGIST [employer] JOSE GUADALUPE FERGUSON M[facility] Comment on above: Performed By: #### C UU #### [address] Urinalysis - DIPSTICKon 06-05 Appearance (U) cloudy [employer] Other Bilirubin Ql (U) Negative [employer] Other Color (U) pale yellow [employer] Other Glucose Ql (U) Negative [employer] Other Hemoglobin Ql (U) non hem-trace [employer] Other Ketones Ql (U) trace [employer] Other Leukocyte esterase Test strip Ql (U) moderate [employer] Other Nitrite Ql (U) Negative [employer] Other pH (U) 5 [pH] [employer] Other Protein Ql (U) trace [employer] Other Specific gravity (U) [Rel density] 1.005 [employer] Other Urobilinogen (U) [Mass/Vol] normal [employer] Other Urinalysis - DIPSTICK [employer] Other CULTURE URINEon 06-11-2022 CULTURE URINE Isolate [...] F Trimethoprim/Sulfameth oxazole <=20 S F Normal [facility] Comment on above: Performed By: #### U RCX #### [facility] [address] [place] [address] Dr. Florencio Narayanan CARDIAC AMBER ADMITon 023 CK [Catalytic activity/Vol] 44 U/L Normal 26-192 [facility] Comment on above: Performed By: #### C MP, LIPA, CMADM #### [facility] [address] [place], [place] [address] Dr. Florencio Narayanan CK.MB [Mass/Vol] ng/mL Normal <=3.60 [facility] Comment on above: Performed By: #### C MP, LIPA, CMADM #### [facility] [address] [place] [address] Dr. Florencio Narayanan HSTROP 14.6 pg/mL Normal 4.0-51.3 [facility] Comment on above: Result Comment: CUT- OFF POINTS HAVE BEEN ESTABLISHED BASED ON THE FOURTH UNIVERSAL DEFINITIONS OF MYOCARDIAL INFARCTION. THE UPPER REFERENCE LIMIT (URL) OF TROPONIN, DEFINED THE 99TH PERCENTILE OF cTnI DISTRIBUTION IN A REFERENCE POPULATION, HAS BEEN CONFIRMED THE DECISION THRESHOLD FOR OR DIAGNOSIS. Performed By: #### C MP, LIPA, CMADM #### [facility] [address] [place] [address] Dr. Florencio Narayanan UMER 109 ng/mL Critically high 9-82 [facility] Comment on above: Performed By: #### C MP, LIPA, CMADM #### [facility] [address] [place] [address] Dr. Florencio Narayanan CBC AUTO DIFFon 06-09-2022 BASO # 0.1 103/ul Normal 0.0-0.1 [facility] Comment on above: Performed By: #### C BC #### [facility] [address] [place] [address] Dr. Florencio Narayanan Basophils/100 WBC (Bld) 0.4 % Normal 0.2-2.0 [facility] Comment on above: Performed By: #### C BC #### [facility] [address] [place] [address] Dr. Florencio Narayanan EO # 0.0 103/ul Normal 0.0-0.7 [facility] Comment on above: Performed By: #### C BC #### [facility] [address] [place] [address] Dr. Florencio Narayanan Eosinophils/100 WBC (Bld) 0.2 % Critically low 0.9-7.0 [facility] Comment on above: Performed By: #### C BC #### [facility] [address] [place] [address] Dr. Florencoi Narayanan Erythrocyte distribution width (RBC) [Ratio] 12.3 % Normal 11.0-15.0 [facility] Comment on above: Performed By: #### C BC #### [facility] [address] [place] [address] Dr. Florencio Narayanan Hematocrit (Bld) [Volume fraction] 38.4 % Normal 36.0-48.0 [facility] Comment on above: Performed By: #### C BC #### [facility] [address] [place] [address] Dr. Florencio Narayanan Hemoglobin (Bld) [Mass/Vol] 12.7 g/dL Normal 12.0-16.0 [facility] Comment on above: Performed By: #### C BC #### [facility] [address] [place] [address] Dr. Florencio Narayanan IG # 0.06 10e3/ul Critically high 0.00-0.03 [facility] Comment on above: Performed By: #### C BC #### [facility] [address] [place] [address] Dr. Florencio Narayanan IG % 0.5 % Normal 0.0-0.5 [facility] Comment on above: Performed By: #### C BC #### [facility] [address] [place] [address] Dr. Florencio Narayanan LYMPH # 1.0 103/ul Critically low 1.2-3.8 [facility] Comment on above: Performed By: #### C BC #### [facility] [address] [place] [address] Dr. Florencio Narayanan Lymphocytes/100 WBC (Bld) 8.4 % Critically low 20.5-60.0 [facility] [facility] Comment on above: Performed By: #### C BC #### [facility] [address] [place] [address] Dr. Florencio Narayanan MANUAL DIFF REQ NO Normal [facility] Comment on above: Performed By: #### C BC #### [facility] [address] [place] [address] Dr. Florencio Narayanan MCH (RBC) [Entitic mass] 32.4 pg Normal 26.7-34.0 [facility] Comment on above: Performed By: #### C BC #### [facility] [address] [address] [address] Florencio Narayanan MCHC (RBC) [Mass/Vol] 33.1 g/dL Normal 29.9-35.2 [facility] Comment on above: Performed By: #### C BC #### [facility] [address] [place] [address] Dr. Florencio Narayanan MCV (RBC) [Entitic vol] 98.0 fL Normal 81.0-99.0 [facility] Comment on above: Performed By: #### C BC #### [facility] [address] [place] [address] Dr. Florencio Narayanan MONO # 1.6 103/ul Critically high 0.3-0.8 [facility] Comment on above: Performed By: #### C BC #### [facility] [address] [place] [address] Dr. Florencio Narayanan Monocytes/100 WBC (Bld) 13.1 % Critically high 1.7-12.0 [facility] Comment on above: Performed By: #### C BC #### [facility] [address] [place] [address] Dr. Florencio Narayanan NEUT # 9.5 103/ul Critically high 1.4-6.5 [facility] Comment on above: Performed By: #### C BC #### [facility] [address] [place] [address] Dr. Florencio Narayanan Neutrophils/100 WBC (Bld) 77.4 % Critically high 43.0-75.0 [facility] Comment on above: Performed By: #### C BC #### [facility] [address] [place] [address] Dr. Florencio Narayanan Platelet mean volume (Bld) [Entitic vol] 9.4 fL Critically low 9.5-13.5 [facility] Comment on above: Performed By: #### C BC #### [facility] [address] [place] [address] Dr. Florencio Narayanan PLT 140 103/ul Critically low 150-450 [facility] Comment on above: Performed By: #### C BC #### [facility] [address] [place], [place] [address] Dr. Florencio Narayanan RBC 3.92 106/ul Critically low 4.20-5.40 [facility] Comment on above: Performed By: #### C BC #### [facility] [address] [place], [place] [address] Dr. Florencio Narayanan WBC 12.2 103/ul Critically high 4.0-11.0 [facility] Comment on above: Performed By: #### C BC #### [facility] [address] [place], [place] [address] STROKE HEAD WOon [...] LUANA VILLAFANA Date: 2022-06-09 12:24 Normal [facility]on SARS-CoV-2 (COVID-19) RNA CHRISTOPHER+probe Ql (Unsp spec) Not detected Normal NOT DETECTED [facility] Comment on above: Result Comment: When diagnostic [...] for this test is supported by the Travel Service Consultant of Health and Human Service's declaration that [...] used). Performed By: #### C VDTB #### [facility] [address] [place] [address] Dr. Florencio Narayanan ER URINE PROFILEon 3 Bilirubin Ql (U) Negative Normal NEGATIVE [facility] Comment on above: Performed By: #### Malini PIZANO UMICRO #### [facility] [address] [place] [address] Dr. Florencio Narayanan Clarity (U) CLEAR Normal CLEAR [facility] Comment on above: Performed By: #### Malini PIZANO UMICRO #### [facility] [address] [place] [address] Dr. Florencio Narayanan Color (U) LT. YELLOW Normal YELLOW [facility] Comment on above: Performed By: #### Malini PIZANO UMICRO #### [facility] [address] [place] [address] Dr. Florencio CONLEY A micrscopic examination will be performed if indicated. Normal [facility] Comment on above: Performed By: #### Malini PIZANO UMICRO #### [facility] [address] [place] [address] Dr. Florencio Narayanan Glucose Ql (U) Negative Normal NEGATIVE [facility] Comment on above: Performed By: #### E RUR UMICRO #### [facility] [address] [place] [address] Dr. Florencio Narayanan Hemoglobin Ql (U) LARGE Abnormal NEGATIVE [facility] Comment on above: Performed By: #### E RUR UMICRO #### [facility] [address] [place] [address] Dr. Florencio Narayanan Ketones Ql (U) TRACE Abnormal NEGATIVE [facility] Comment on above: Performed By: #### E RUR, UMICRO #### [facility] [address] [place] [address] Dr. Florencio Narayanan LEUKOCYTES LARGE Abnormal NEGATIVE [facility] Comment on above: Performed By: #### LIYAH LERO #### [facility] [address] [place] [address] Dr. Florencio Narayanan Nitrite Ql (U) Positive Abnormal NEGATIVE [facility] Comment on above: Performed By: #### LIYAH LERO #### [facility] [address] [place] [address] Dr. Florencio Narayanan pH (U) 5.5 [pH] Normal 5-9 [facility] Comment on above: Performed By: #### ADIEL LE #### [facility] [address] [place] [address] Dr. Florencio Narayanan SPEC GRAVITY 1.010 Normal 1.005-<=1.[address] [place] [address] Comment on above: Performed By: #### LIYAH LERO #### [facility] [address] [place] [address] Dr. Florencio Narayanan UA PROTEIN TRACE Normal NEGATIVE/ TRACE [facility] Comment on above: Performed By: #### ADIEL LE #### [facility] [address] [place] [address] Dr. Florencio Narayanan UR MICRO IND INDICATED Normal [facility] Comment on above: Performed By: #### ADIEL LE #### [facility] [address] [place] [address] Dr. Florencio Narayanan Urobilinogen Qn (U) 0.2 {Zenia'U}/dL Normal 0.2 - 1. 0 [facility] Comment on above: Performed By: #### LIYAH LERO #### [facility] [address] [place] [address] Dr. Florencio Narayanan LIPASEon 06-09-2022 Lipase [Catalytic activity/Vol] 68.0 U/L Critically low 73.0-393.0 [facility] Comment on above: Performed By: #### C MP, LIPA, CMADM #### [facility] [address] [place] [address] Dr. Florencio Narayanan PROF 14(COMP METB)on 023 Albumin [Mass/Vol] 2.5 g/dL Critically low 3.4-5.0 [facility] Comment on above: Performed By: #### C MP, LIPA, CMADM #### [facility] [address] [place] [address] Dr. Florencio Narayanan Albumin/Globulin [Mass ratio] 0.6 {ratio} Normal [facility] Comment on above: Performed By: #### C MP, LIPA, CMADM #### [facility] [address] [place] [address] Dr. Florencio Narayanan ALP [Catalytic activity/Vol] 150 U/L Critically high 46-116 [facility] Comment on above: Performed By: #### C MP, LIPA, CMADM #### [facility] [address] [place] [address] Dr. Florencio Narayanan ALT [Catalytic activity/Vol] 27 U/L Normal 14-59 [facility] Comment on above: Performed By: #### C MP, LIPA, CMADM #### [facility] [address] [place] [address] Dr. Florencio Narayanan Anion gap [Moles/Vol] 12.8 mmol/L Normal [facility] Comment on above: Performed By: #### C MP, LIPA, CMADM #### [facility] [address] [place] [address] Dr. Florencio Narayanan AST [Catalytic activity/Vol] 31 U/L Normal 15-37 [facility] Comment on above: Performed By: #### C MP, LIPA, CMADM #### [facility] [address] [place] [address] Dr. Florencio Narayanan Bilirubin [Mass/Vol] 1.1 mg/dL Critically high 0.2-1.0 [facility] Comment on above: Performed By: #### C MP, LIPA, CMADM #### [facility] [address] [place] [address] Dr. Florencio Narayanan Calcium [Mass/Vol] 9.1 mg/dL Normal 8.5-10.1 [facility] Comment on above: Performed By: #### C MP, LIPA, CMADM #### [facility] [address] [address] [address] Florencio Narayanan Chloride [Moles/Vol] 95 mmol/L Critically low 98-107 [facility] Comment on above: Performed By: #### C MP, LIPA, CMADM #### [facility] [address] [address] [address] Florencio Narayanan CO2 [Moles/Vol] 29.4 mmol/L Normal 21.0-32.0 [facility] Comment on above: Performed By: #### C MP, LIPA, CMADM #### [facility] [address] [address] [address] Florencio Narayanan Creatinine [Mass/Vol] 1.34 mg/dL Critically high 0.55-1.02 [facility] Comment on above: Performed By: #### C MP, LIPA, CMADM #### [facility] [address] [address] [address] Floerncio Narayanan EGFR-AF ERITREAN 47 mL/min/1.73m2 Critically low >=60 [facility] Comment on above: Performed By: #### C MP, LIPA, CMADM #### [facility] [address] [address] [address] Florencio Narayanan EGFR-NON AF ERITREAN 39 mL/min/1.73m2 Critically low >=60 [facility] Comment on above: Performed By: #### C MP, LIPA, CMADM #### [facility] [address] [address] [address] Florencio Narayanan Globulin (S) [Mass/Vol] 4.3 g/dL Normal [facility] Comment on above: Performed By: #### C MP, LIPA, CMADM #### [facility] [address] [address] [address] Florencio Narayanan Glucose [Mass/Vol] 118 mg/dL Critically high 74-106 [facility] Comment on above: Performed By: #### C MAURICIO LOZANOA, CMADM #### [facility] [address] [place] [address] Dr. Florencio Narayanan Potassium [Moles/Vol] 3.2 mmol/L Critically low 3.5-5.1 [facility] Comment on above: Performed By: #### C BLAKE LIPA, CMADM #### [facility] [address] [place] [address] Dr. Florencio Narayanan Protein [Mass/Vol] 6.8 g/dL Normal 6.4-8.2 [facility] Comment on above: Performed By: #### C LILIAN LOZANO CMAALESIA #### [facility] [address] [place] [address] Dr. Florencio Narayanan Sodium [Moles/Vol] 134 mmol/L Critically low 136-145 [facility] Comment on above: Performed By: #### C MAURICIO LOZANOA CMAALESIA #### [facility] [address] [place] [address] Dr. Florencio Narayanan Urea nitrogen [Mass/Vol] 29.0 mg/dL Critically high 7.0-18.0 [facility] Comment on above: Performed By: #### C LILIAN LOZANO CMAALESIA #### [facility] [address] [place] [address] Dr. Florencio Narayanan Urea nitrogen/Creatinine [Mass ratio] 21.6 mg/mg Normal [facility] Comment on above: Performed By: #### C LILIAN LOZANO CMAALESIA #### [facility] [address] [place] [address] Dr. Florencio Narayanan URINE MICROSCOPIC ONLYon BACTERIA SMALL Abnormal NONE SEEN [facility] Comment on above: Performed By: #### ADIEL LE #### [facility] [address] [place] [address] Dr. Florencio Narayanan Bacteria identified Cx Nom (U) INDICATED Normal [facility] Comment on above: Performed By: #### ADIEL LE #### [facility] [address] [place] [address] Dr. Florencio Narayanan CAST NONE SEEN Normal NONE SEEN [facility] Comment on above: Performed By: #### E RUR, UMICRO #### [facility] [address] [place] [address] Dr. Florencio Narayanan Crystals LM Nom (Urine sed) NONE SEEN Normal NONE SEEN [facility] Comment on above: Performed By: #### E RUR, UMICRO #### [facility] [address] [place] [address] Dr. Florencio Narayanan Epithelial cells LM Ql (Urine sed) FEW Abnormal NONE SEEN /RARE [facility] Comment on above: Performed By: #### E RUR, UMICRO #### [facility] [address] [place] [address] Dr. Florencio Narayanan MUCOUS NONE SEEN Normal NONE SEEN [facility] Comment on above: Performed By: #### E DANGELOR, UMICRO #### [facility] [address] [place] [address] Dr. Florencio Narayanan RBC 2-5 Abnormal 0-2 [facility] Comment on above: Performed By: #### E DANGELOR, UMICRO #### [facility] [address] [place] [address] Dr. Florencio Narayanan WBC 10-20 Abnormal NONE SEEN [facility] Comment on above: Performed By: #### E DANGELOR, UMICRO #### [facility] [address] [place] [address] Dr. Florencio Narayanan XR CHEST 2 Von [...] JOAQUÍN ATKINS Date: 2022-06-09 12:24 Normal [facility] CULTURE URINEon 04-16-2022 CULTURE URINE Isolate 1 [...] F Trimethoprim/Sulfameth oxazole >=320 R F Normal [facility] Comment on above: Performed By: #### C #### [facility] [address] [place] [address] Dr. Florencio Narayanan MRI Hip w/o Righton [...] by Ramon Ambrocio on 09/11/2021 1545 Normal [facility] Turner Consult Reporton 03-14-2020 Consult Report [facility] CONSULTATION BETTIE BURNS [address]ET [id number] OBSV ANABEL WATKINS MD [id number] REFERRING PHYSICIAN: CONSULTING PHYSICIAN: Renetta Almanzar MD DATE OF CONSULTATION: 03/11/2020 REASON: A near syncopal event in a 74-year-old female, with a history of atrial fibrillation, previous cardiac ablation, who was the time of evaluation noted to have a positive test for COVID. HISTORY OF PRESENT ILLNESS: Mrs. Burns is a very pleasant, alert and oriented -[id number] female who was brought into the emergency [...] quarantine. Many thanks. RENETTA ALMANZAR MD BD/MedBo[employer] /[id number] Normal [facility] BASICMETAon 03-11-2020 GFR AA >60 Normal [facility] Comment on above: Result Comment: Afri can Citizen Of The [place] GFR Calc Medical judgement is necessary to [...] for drug dosing. Performed By: #### 1 60799, 490337, [id number] ####[facility] [address] [place] [address] Medical Director: Fahad Cast MD GFR/1.73 sq M predicted among non-blacks MDRD (S/P/Bld) [Vol rate/Area] 56 mL/min/1.73m? Normal [facility] Comment on above: [...] for drug dosing. Performed By: #### 1 50622, 428086, 438339 ####[facility] [address] [place] [address] Medical Director: Fahad Cast MD Osmolality [Osmolality] 291 mOsm/kg Normal 275-295 [facility] Comment on above: Performed By: #### 1 95035, 358134, 892396 ####[facility] [address] [place] [address] Medical Director: Fahad Cast MD Urea nitrogen/Creatinine [Mass ratio] 24.5 mg/mg Normal [facility] Comment on above: Performed By: #### 1 27072, 530756, 172088 ####[facility] [address] [place] [address] Medical Director: Fahad Cast MD Calcium [Mass/Vol] 9.3 mg/dL Normal 8.5-10.5 [facility] Comment on above: Performed By: #### 1 37283, 998831, 404959 ####[facility] [address] [place], [place] [id number]) [phone] Director: Fahad Cast MD Chloride [Moles/Vol] 108 mmol/L Normal 100-109 [facility] Comment on above: Performed By: #### 1 59085, 495703, 474451 ####[facility] [address] [place] [address] Medical Director: Fahad Cast MD CO2, venous 28.9 mmol/L Normal 21.0-32.0 [facility] Comment on above: Performed By: #### 1 71494, 520951, 289014 ####[facility] [address] [place] [address] Medical Director: Fahad Cast MD Creatinine [Mass/Vol] 1.0 mg/dL Normal 0.6-1.0 [facility] Comment on above: Performed By: #### 1 57662, 111242, 981301 ####[facility] [address] [place] [address] [id number]) [phone] Director: Fahad Cast MD Glucose [Mass/Vol] 98 mg/dL Normal 72-100 [facility] Comment on above: Result Comment: Sharon puncture should occur prior to sulfasalazine administration due to the potential for falsely depressed results. Venipuncture should occur prior to sulfapyridine administration due to the potential falsely elevated results. Baseline assay values before administration of sulfasalazine and sulfapyridine therapy would not be affected. Performed By: #### 1 60445, 651255, 873109 ####[facility] [address] [place] [address] Medical Director: Fahad Cast MD Potassium [Moles/Vol] 4.2 mmol/L Normal 3.5-5.1 [facility] Comment on above: Performed By: #### 1 88384, 622164, 727984 ####[facility] [address] [place] [address] Medical Director: Fahad Cast MD Sodium [Moles/Vol] 144 mmol/L Normal 135-145 [facility] Comment on above: Performed By: #### 1 31154, 759111, 239245 ####[facility] [address] [place], [place] [id number]) [phone] Director: Fahad Cast MD Urea nitrogen [Mass/Vol] 24 mg/dL High 10-20 [facility] Comment on above: Performed By: #### 1 98822, 933866, 471904 ####[facility] [address] [place] [address] Medical Director: Fahad Cast MD [facility]-2020 Erythrocyte distribution width (RBC) [Ratio] 14.4 % Normal 11.5-14.5 [facility] Comment on above: Performed By: #### 1 51552, 298472, 028010 #### [facility] Services [address] [place] [address] Specialist Managers: aFhad Cast MD Hematocrit (Bld) [Volume fraction] 33.9 % Low 36.0-46.0 [facility] Comment on above: Performed By: #### 1 45677, 688674, 897208 #### [facility] Services [address] [place] [address] Specialist Managers: Fahad Cast MD Hemoglobin (Bld) [Mass/Vol] 11.2 g/dL Low 12.0-16.0 [facility] Comment on above: Performed By: #### 1 03835, 552703, 503426 #### [facility] Services [address] [place] [address] Specialist Managers: Fahad Cast MD MCH (RBC) [Entitic mass] 29.5 pg Normal 27.0-34.0 [facility] Comment on above: Performed By: #### 1 18437, 626531, 580972 #### [facility] Services [address] [place] [address] Specialist Managers: Fahad Cast MD MCHC (RBC) [Mass/Vol] 33.0 g/dL Normal 32.0-37.0 [facility] Comment on above: Performed By: #### 1 50367, 291244, 393617 #### [facility] [address] [place] [address] Specialist Managers: Fahad Cast MD MCV (RBC) [Entitic vol] 89.5 fL Normal 80.0-100.0 [facility] Comment on above: Performed By: #### 1 17044, 591753, 120761 #### [facility] [address] [place] [address] Specialist Managers: Fahad Cast MD Platelet mean volume (Bld) [Entitic vol] 6.8 fL Low 7.4-10.4 [facility] Comment on above: Performed By: #### 1 97652, 461064, 581931 #### [facility] [address] [place] [address] Specialist Managers: Fahad Cast MD Platelets (Bld) [#/Vol] 232 x1000 Normal 150-450 [facility] Comment on above: Performed By: #### 1 02459, 919024, 049394 #### [facility] Services [address] [place] [address] Specialist Managers: Fahad Cast MD RBC (Bld) [#/Vol] 3.79 x10 Low 4.20-5.40 [facility] Comment on above: Result Comment: Note : RBC morphology is normal unless otherwise stated. Evaluation performed only if differential is requested. Performed By: #### 1 15953, 484154, 035698 #### [facility] [address] [place] [address] Specialist Managers: Fahad Cast MD WBC (Bld) [#/Vol] 5.8 10*3/uL Normal [facility] Comment on above: Performed By: #### 1 94813, 992573, 567430 #### [facility] Services [address] [place] [address] Specialist Managers: Fahad Cast MD WBC (Bld) [#/Vol] 5.8 x10 Normal 4.5-11.0 [facility] Comment on above: Performed By: #### 1 14588, 467427, 619292 #### [facility] Services [address] [place] [address] Specialist Managers: Fahad Cast MD D Dimer HSon 03-11-2020 D Dimer HS 821 ng/mL FEU High <=499 [facility] Comment on above: Result Comment: Excl usion of PE and DVT The D Dimer HS assay is reported in ng/ml Fibrinogen Equivalent Units (FEU). Per adjunct physical education instructor?s instructions for use, a value less than 500ng/ml (FEU) may help to exclude DVT and /or PE in outpatients when the assay is used with a clinical pretest probability assessment. D-Dimer used for DIC Screens Assay results should be used with other information, including the clinical context in forming a diagnosis. Performed By: #### C [id number] ####[facility] [address] [place] [address] Medical Director: Fahad Cast MD LDHon 03-11-2020 LDH 198 unit/L Normal 84-246 [facility] Comment on above: Performed By: #### 1 21722, 326989, 945249 #### [facility] Services [address] [place] [address] Specialist Managers: Fahad Cast MD Progress Note-Physicianon Progress Note-Physician [...] medications. 6) DVT ppx: On Eliquis Normal [facility] Utilization Review Noteon Utilization Review Note ID Consult pending DISCHARGE WRITTEN AND PLANNED. Normal [facility] AUTO DIFFon 03-10-2020 Basophils (Bld) [#/Vol] 0.05 x1000 Normal 0.00-0.20 [facility] Comment on above: Performed By: #### 1 62767, 682190, [id number] ####[facility] [address] [place] [address] Medical Director: Fahad Cast MD Basos % 0.6 % Normal [facility] Comment on above: Performed By: #### 1 , [id number], [id number] ####[facility] [address] [place] [address] Medical Director: Fahad Cast MD Eos Count 0.15 x1000 Normal 0.00-0.50 [facility] Comment on above: Performed By: #### 1 , [id number], [id number] ####[facility] [address] [place] [id number] Medical Director: Fahad Cast MD Eosinophils/100 WBC (Bld) 1.8 % Normal [facility] [facility] Comment on above: Performed By: #### 1 , [id number], [id number] ####[facility] [address] [place] [id number] Medical Director: Fahad Cast MD Lymphocytes (Bld) [#/Vol] 1.05 x1000 Low 1.20-4.80 [facility] Comment on above: Performed By: #### 1 60569, 367774, 3880961 ####[facility] Zrceqgwl35494 [place] [id number] Medical Director: Fahad Cast MD Lymphocytes/100 WBC (Bld) 12.7 % Normal [facility] Comment on above: Performed By: #### 1 , 213412, [id number] ####[facility] [address]eorwmof93671 [place] [address] Medical Director: Fahad Cast MD Manatee Count 0.70 x1000 Normal 0.10-1.00 [facility] Comment on above: Performed By: #### 1 55560, 404285, 2725897 ####[facility] Cpjfgfgn57473 [place] [address] Medical Director: Fahad Cast MD Monocytes/100 WBC (Bld) 8.4 % Normal [facility] Comment on above: Performed By: #### 1 18362, 881577, 3000501 ####[facility] [address]apgvwmc28878 [place] [address] Medical Director: Fahad Cast MD Neutrophils (Bld) [#/Vol] 6.32 x1000 Normal 1.40-8.80 [facility] Comment on above: Performed By: #### 1 55535, 893122, 1158050 ####[facility] Nhzlkuaz18328 [place] [address] Medical Director: Fahad Cast MD Neutrophils/100 WBC (Bld) 76.4 % Normal [facility] Comment on above: Performed By: #### 1 24407, 297293, 8128216 ####[facility] Uzxrxibf62352 [place] [address] Medical Director: Fahad Cast MD COMPMETAon 03-10-2020 Albumin [Mass/Vol] 3.4 g/dL Normal 3.4-5.0 [facility] Comment on above: Performed By: #### 1 17694, 579443, 9631148 ####[facility] Vbekxcog67670 [place] [address] Medical Director: Fahad Cast MD Albumin/Globulin [Mass ratio] 0.8 {ratio} Normal [facility] Comment on above: Performed By: #### 1 88630, 384014, 0652256 ####[facility] Osgkbktc73971 [place], [place] [id number]) [phone] Director: Fahad Cast MD Alk Phos 71 unit/L Normal 45-117 [facility] Comment on above: Performed By: #### 1 40421, 955300, 4376480 ####[facility] Qxcrfqeo98265 [place] [address] Medical Director: Fahad Cast MD Bilirubin [Mass/Vol] 0.37 mg/dL Normal 0.20-1.00 [facility] Comment on above: Result Comment: Use of this assay is not recommended for patients undergoing treatment with eltrombopag due to the potential for falsely elevated results. Performed By: #### 1 86890, 184727, 2732289 ####[facility] Lkqzvydq85896 [place], [place] [id number]) [phone] Director: Fahad Cast MD Calcium [Mass/Vol] 9.4 mg/dL Normal 8.5-10.5 [facility] Comment on above: Performed By: #### 1 37332, 043166, 6843838 ####[facility] [address] [place] [address] Medical Director: Fahad Cast MD Chloride [Moles/Vol] 108 mmol/L Normal 100-109 [facility] Comment on above: Performed By: #### 1 72626, 734568, 4231444 ####[facility] Fqfobply56108 [place] [address] Medical Director: Fahad Cast MD CO2, venous 28.2 mmol/L Normal 21.0-32.0 [facility] Comment on above: Performed By: #### 1 64751, 003754, 3235238 ####[facility] Hpodpjio69462 [place] [address] Medical Director: Fahad Cast MD Creatinine [Mass/Vol] 1.2 mg/dL High 0.6-1.0 [facility] Comment on above: Performed By: #### 1 99522, 510196, 8223860 ####[facility] Yyyyoqxp48665 [place], [place] [id number]) [phone] Director: Fahad Cast MD GFR AA 53 Normal [facility] Comment on above: Result Comment: Afri can Citizen Of [place] GFR Calc Medical judgement is necessary to [...] for drug dosing. Performed By: #### 1 03804, 467603, 1008292 ####[facility] Kwwadrqm90452 [place] [address] Medical Director: Fahad Cast MD GFR/1.73 sq M predicted among non-blacks MDRD (S/P/Bld) [Vol rate/Area] 44 mL/min/1.73m? Normal [facility] Comment on above: [...] for drug dosing. Performed By: #### 1 37708, 401067, 2530951 ####[facility] Vgiegcbp49906 [place] [address] Medical Director: Fahad Cast MD Globulin (S) [Mass/Vol] 4.0 g/dL [facility] Comment on above: Performed By: #### 1 65921, 142028, 3848055 ####[facility] Gixdgcit95093 [place], [place] [id number]) [phone] Director: Fahad Cast MD Glucose [Mass/Vol] 143 mg/dL High 72-100 [facility] Comment on above: Result Comment: Sharon puncture should occur prior to sulfasalazine administration due to the potential for falsely depressed results. Venipuncture should occur prior to sulfapyridine administration due to the potential falsely elevated results. Baseline assay values before administration of sulfasalazine and sulfapyridine therapy would not be affected. Performed By: #### 1 08687, 750619, 2377545 ####[facility] [address]kl[address] [place] [id number]) [phone] Director: Fahad Cast MD GOT 18 unit/L Normal 15-37 [facility] Comment on above: Result Comment: Sharon puncture should occur prior to sulfasalazine and/or sulfapyridine administration due to the potential for falsely depressed results. Baseline assay values before administration of sulfasalazine and sulfapyridine therapy would not be affected. Performed By: #### 1 62254, 681215, 4440855 ####[facility] [address] [place] [address]36[address] Medical Director: Fahad Cast MD GPT 19 unit/L Normal 13-56 [facility] Comment on above: Result Comment: Sharon puncture should occur prior to sulfasalazine and/or sulfapyridine administration due to the potential for falsely depressed results. Baseline assay values before administration of sulfasalazine and sulfapyridine therapy would not be affected. Performed By: #### 1 58455, 811801, 7940504 ####[facility] [address] [place] [address] Medical Director: Fahad Cast MD Osmolality [Osmolality] 293 mOsm/kg Normal 275-295 [facility] Comment on above: Performed By: #### 1 16329, 522812, 0706336 ####[facility] Sbxpqpby[address] [place] [address] Medical Director: Fahad Cast MD Potassium [Moles/Vol] 4.0 mmol/L Normal 3.5-5.1 [facility] Comment on above: Performed By: #### 1 56741, 861395, 6107541 ####[facility] Etnddnyq40330 [place] [address] Medical Director: Fahad Cast MD Protein [Mass/Vol] 7.4 g/dL Normal 6.0-8.5 [facility] Comment on above: Performed By: #### 1 85589, 222263, 8824854 ####[facility] Ympbivpr87131 [place] [address] Medical Director: Fahad Cast MD Sodium [Moles/Vol] 142 mmol/L Normal 135-145 [facility] Comment on above: Performed By: #### 1 92926, 650778, 3562127 ####[facility] Iivblkve91518 [place] [address] Medical Director: Fahad Cast MD Urea nitrogen [Mass/Vol] 32 mg/dL High 10-20 [facility] Comment on above: Performed By: #### 1 44812, 855314, 4336776 ####[facility] Zltafbmb96827 [place] [address] [facility] Director: Fahad Cast MD Urea nitrogen/Creatinine [Mass ratio] 26.7 mg/mg Normal [facility] Comment on above: Performed By: #### 1 34816, 514105, 1196565 ####[facility] Razttmfy13749 [place] [address] Medical Director: Fahad Cast MD COVID-19 by PCR SWEDon 03-10 COVID-19 by PCR SWED Positive Abnormal [facility] Comment on above: Result Comment: CALL DEANNA CHRISTIE 03/10/2020 18:23:22 EST BY SHF; RBR Performed By: #### C [id number] ####[facility] Focdzauc71468 [place] [address] Medical Director: Fahad Cast MD CRP QUANTon 03-10-2020 C-Reactive Protein, Quantitative 0.8 mg/dL High 0.0-0.3 [facility] Comment on above: Performed By: #### 1 22139, [id number], :[id number], [id number] #### [facility] Services [address] [place] [id number] Specialist Managers: Fahad Cast MD CT ABD PELVIS W [...] by: Oni Liu MD 03/10/2020 3:50 PM [facility] Technologist: LIEN BLANCA Dictated By: ONI LIU MD Signed By: ONI LIU MD Signed Out: 03/10/20 16:50:49 Normal [facility] D Dimer HSon 03-10-2020 D Dimer HS 264 ng/mL FEU Normal <=499 [facility] Comment on above: Result Comment: Excl usion of PE and DVT The D Dimer HS assay is reported in ng/ml Fibrinogen Equivalent Units (FEU). Per adjunct physical education instructor?s instructions for use, a value less than 500ng/ml (FEU) may help to exclude DVT and /or PE in outpatients when the assay is used with a clinical pretest probability assessment. D-Dimer used for DIC Screens Assay results should be used with other information, including the clinical context in forming a diagnosis. Performed By: #### 1 15162, [id number], [id number], [id number] #### [facility] Services [address] [place] [address] Specialist Managers: Fahad Cast MD ED Physician Reporton 2019 [...] Line Saline Flush: 3 mL, IV Push, [id number] Documented Medications Documented Eliquis 5 mg oral [...] Interp, Sinus rhythm with first-degree AV block, [place] interval 256, QT/QTc/433, incomplete right bundle branch [...] /100WBC NA Lymph % 12.7 % NA Manatee % 8.4 % NA Neutrophil % 76.4 % NA Eosin % 1.8 % NA Basos % 0.6 % NA Lymph Count 1.05 x1000 LOW [place] Count 0.70 x1000 NORMAL Neutrophil Count (ANC) [...] by: Monae Hernandez MD 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 Notes: [...] Course: improving. Impression and Plan Diagnosis Syncope ([id number] R55, Working, Medical) Plan Condition: Stable. Disposition: [...] accurately records my words and actions.. Normal [facility] ED Pre-Arrival Formon 2019 ED Pre-Arrival Form Pre-Arrival Summary Name: STR, Current Date: 03/10/2020 13:52:19 EST Gender: Date of : Age: Pre-Arrival Type: EMS ETA: 03/10/2020 14:15:00 EST Primary Care Physician: Presenting Problem: Pre-Arrival User: Neil Vázquez RN Referring Source: Location: [address] [place] [address] Emergency Department [address] [place] [address] Notes: Vital Signs: Doctor Call Back: DNR Status: Miscellaneous Issues: Normal [facility] ED Progress Noteon 0 ED Progress Note report not put in by previous rn pt here for syncopal episode after diarrhea episode pt has hx of afib. pt covid+ report called to neil silva will come get pt Normal [facility] FERRITINon 03-10-2020 Ferritin [Mass/Vol] 32 ng/mL Normal 8-252 [facility] Comment on above: Performed By: #### 1 26150, [id number], [id number], [id number] #### [facility] Services [address] [place], [place] [id number] Specialist Managers: Fahad Cast MD HEMOon 03-10-2020 DIFF? No Normal [facility] Comment on above: Performed By: #### 1 75495, 100784, 3332010 ####[facility] [address]uvn[address]68[address] [place] [address]36[address] Medical Director: Fahad Cast MD Erythrocyte distribution width (RBC) [Ratio] 14.5 % Normal 11.5-14.5 [facility] Comment on above: Performed By: #### 1 25407, 321637, 0757448 ####[facility] Hcofetyf94080 [place], [place] [address]) [phone] Director: Fahad Cast MD Hematocrit (Bld) [Volume fraction] 35.8 % Low 36.0-46.0 [facility] Comment on above: Performed By: #### 1 92032, 997622, 6231761 ####[facility] Xgsejwop58266 [place], [place] [id number]) [phone] Director: Fahad Cast MD Hemoglobin (Bld) [Mass/Vol] 11.7 g/dL Low 12.0-16.0 [facility] Comment on above: Performed By: #### 1 , 138875, 0937252 ####[facility] Jiytjepa[address]71 [place] [id number]) [phone] Director: Fahad Cast MD MCH (RBC) [Entitic mass] 29.4 pg Normal 27.0-34.0 [facility] Comment on above: Performed By: #### 1 , 747377, 9766525 ####[facility] [address] [place], [place] [address]) [phone] Director: Fahad Cast MD MCHC (RBC) [Mass/Vol] 32.7 g/dL Normal 32.0-37.0 [facility] Comment on above: Performed By: #### 1 , 228934, 1029498 ####[facility] Cwwhekic51930 [place] [address] Medical Director: Fahad Cast MD MCV (RBC) [Entitic vol] 89.8 fL Normal 80.0-100.0 [facility] Comment on above: Performed By: #### 1 53473, 716336, 9159410 ####[facility] Weklslwu20496 [place], [place] [address]) [phone] Director: Fahad Cast MD Nucleated RBC (Bld) [#/Vol] 0 /100WBC Normal [facility] Comment on above: Performed By: #### 1 25535, 453472, 6421250 ####[facility] Dqrtwhbr55644 [place] [address] Medical Director: Fahad Cast MD Platelet mean volume (Bld) [Entitic vol] 6.7 fL Low 7.4-10.4 [facility] Comment on above: Performed By: #### 1 40907, 460819, 0030867 ####[facility] Crfeuuor23763 [place] [address] Medical Director: Fahad Cast MD Platelets (Bld) [#/Vol] 252 x1000 Normal 150-450 [facility] Comment on above: Performed By: #### 1 11775, 719680, 2874908 ####[facility] Ggdwjupy61435 [place] [address] Medical Director: Fahad Cast MD RBC (Bld) [#/Vol] 3.99 x10 Low 4.20-5.40 [facility] Comment on above: Result Comment: Note : RBC morphology is normal unless otherwise stated. Evaluation performed only if differential is requested. Performed By: #### 1 86948, 166175, 4799596 ####[facility] Xdwosvdd54919 [place] [address] Medical Director: Fahad Cast MD WBC (Bld) [#/Vol] 8.3 10*3/uL Normal [facility] Comment on above: Performed By: #### 1 83714, 773982, 9149902 ####[facility] Qfekauii84554 [place] [address] Medical Director: Fahad Cast MD WBC (Bld) [#/Vol] 8.3 x10 Normal 4.5-11.0 [facility] Comment on above: Performed By: #### 1 63543, 236623, 9033223 ####[facility] Ytivtwes82812 [place] [address] Medical Director: Fahad Cast MD History and [...] home medications. 6) DVT ppx: On Eliquis ELLIOT STARKS on Normal [facility] LACTATEon 03-10-2020 Lactate [Moles/Vol] 1.8 mmol/L Normal 0.4-2.0 [facility] Comment on above: Performed By: #### 1 38836 #### [facility] Services [address] [place] [address] Specialist Managers: Fahad Cast MD LIPon 03-10-2020 Lipase [Catalytic activity/Vol] 135 unit/L Normal 73-393 [facility] Comment on above: Performed By: #### 1 19078, 832642, 375314 ####[facility] Skfjdduu34144 [place] [address] Medical Director: Fahad Cast MD MG LEVELon 03-10-2020 Magnesium [Mass/Vol] 1.9 mg/dL Normal 1.6-2.6 [facility] Comment on above: Performed By: #### 1 62080, 112887, 586460 ####[facility] Oiadilks86577 [place] [address] Medical Director: Fahad Cast MD PCTon 03-10-2020 Procalcitonin <0.05 Normal [facility] Comment on above: [...] or septic shock. Performed By: #### 1 06996, [id number], [id number], [id number] #### [facility] Services [address] [place] [address] Specialist Managers: Fahad Cast MD TROPONINon 03-10-2020 Troponin I.cardiac [Mass/Vol] ng/mL Normal 0.000-0.099 [facility] Comment on above: Result Comment: This test is a quantitative determination of cardiac troponin I. High levels of serum biotin may interfere with this test. Performed By: #### 1 49335, 911809, 182462 ####[facility] Knimthlf64551 [place] [address] Medical Director: Fahad Cast MD [...] by: Monae Hernandez MD 03/10/2020 1:58 PM ACTING PROFESSOR Technologist: THANG JAMES Dictated By: MONAE HERNANDEZ MD Signed By: MONAE HERNANDEZ MD Signed Out: 03/10/20 14:58:26 Normal [facility] Vital Signs Date Time Vital Sign Value Performing Clinician Facility 07-14-2024 13:15-0400 Body height 165.1 cm Paula HANEY Work Phone: [employer] 07-14-2024 13:15-0400 Body mass index (BMI) [Ratio] 27.96 kg/m2 Paula HANEY Work Phone: [facility] 07-14-2024 13:15-0400 Body weight 76.2 kg Paula HANEY Work Phone: [facility] 06-22-2024 12:54-0500 Blood Pressure Location Maria E Jacqui [facility] 06-22-2024 12:54-0500 Diastolic blood pressure 55 mm[Hg] Maria E Jacqui [facility] 06-22-2024 12:54-0500 Heart rate 56 /min Maria E Jacqui [facility] 06-22-2024 12:54-0500 Respiratory rate 18 /min Maria E Jacqui [facility] 06-22-2024 12:54-0500 Systolic blood pressure 125 mm[Hg] Maria E Jacqui [facility] 05-09-2024 09:17-0500 Body height 165.1 cm [facility] 05-09-2024 09:17-0500 Body mass index (BMI) [Ratio] 29.1 kg/m2 [facility] 05-09-2024 09:17-0500 Body weight 79.37 kg [facility] 05-09-2024 09:17-0500 Diastolic blood pressure 70 mm[Hg] [facility] 05-09-2024 09:17-0500 Heart rate 58 /min [facility] 05-09-2024 09:17-0500 Systolic blood pressure 116 mm[Hg] [facility] 04-30-2024 10:29-0500 Body height 165.1 cm [facility] 04-30-2024 10:29-0500 Body mass index (BMI) [Ratio] 29.1 kg/m2 [facility] 04-30-2024 10:29-0500 Body temperature 99.2 [degF] [facility] 04-30-2024 10:290500 Body weight 79.43 kg [facility] 04-30-2024 10:290500 Diastolic blood pressure 75 mm[Hg] [facility] 04-30-2024 10:29-0500 Heart rate 58 /min [facility] 04-30-2024 10:290500 Respiratory rate 16 /min [facility] 04-30-2024 10:29-0500 SaO2% (BldA) [Mass fraction] 94 % [facility] 04-30-2024 10:290500 Systolic blood pressure 146 mm[Hg] [facility] 02-01-2024 11:13-0400 Body height 165.1 cm [facility] 02-01-2024 11:13-0400 Body mass index (BMI) [Ratio] 28.3 kg/m2 [facility] 02-01-2024 11:13-0400 Body weight 77.11 kg [facility] 02-01-2024 11:13-0400 Diastolic blood pressure 72 mm[Hg] [facility] 02-01-2024 11:13-0400 Heart rate 60 /min [facility] 02-01-2024 11:13-0400 Systolic blood pressure 134 mm[Hg] [facility] 11-26-2023 14:08-0400 Body height 165.1 cm Miko Ohara MD Work Phone: [facility] 11-26-2023 14:08-0400 Body mass index (BMI) [Ratio] 27.96 kg/m2 Miko Ohara MD Work Phone: [facility] 11-26-2023 14:08-0400 Body temperature 97 [degF] Miko Ohara MD Work Phone: [facility] 11-26-2023 14:08-0400 Body weight 76.2 kg Miko Ohara MD Work Phone: [facility] 11-26-2023 09:56-0400 Body height 165.1 cm Mainor Post MD Work Phone: [facility] [facility] 11-26-2023 09:56-0400 Body mass index (BMI) [Ratio] 28.12 kg/m2 Mainor Post MD [facility] 11-26-2023 09:56-0400 Body weight 76.66 kg Mainor Post MD Work Phone: [facility] [employer] 11-26-2023 09:56-0400 Diastolic blood pressure 76 mm[Hg] Mainor Post MD Work Phone: [facility] [employer] 11-26-2023 09:56-0400 Heart rate 56 /min Mainor Post MD Work Phone: [facility] 11-26-2023 09:56-0400 Systolic blood pressure 124 mm[Hg] Mainor Post MD Work Phone: [facility] 10-28-2023 08:41-0400 Body height 165.1 cm [facility] 10-28-2023 08:41-0400 Body mass index (BMI) [Ratio] 27.9 kg/m2 [facility] 10-28-2023 08:41-0400 Body weight 76.2 kg [facility] 10-28-2023 08:41-0400 Diastolic blood pressure 68 mm[Hg] [facility] 10-28-2023 08:41-0400 Heart rate 58 /min [facility] 10-28-2023 08:41-0400 Systolic blood pressure 106 mm[Hg] [facility] 08-20-2023 14:38-0400 Body height 165.1 cm Divine Dougherty Work Phone: [facility] 08-20-2023 14:38-0400 Body mass index (BMI) [Ratio] 27.96 kg/m2 Divine Dougherty Work Phone: [facility] 08-20-2023 14:38-0400 Body weight 76.2 kg Divine Dougherty Work Phone: [facility] 07-23-2023 14:45-0400 Body height 165.1 cm Divine Dougherty Work Phone: [facility] 07-23-2023 14:45-0400 Body mass index (BMI) [Ratio] 27.96 kg/m2 Divine Dougherty Work Phone: [facility] 07-23-2023 14:45-0400 Body weight 76.2 kg Divine Dougherty Work Phone: [facility] 2023 15:34-0500 Body temperature 97.9 [degF] Miko Ohara MD Work Phone: [employer] [facility] 2023 15:34-0500 Diastolic blood pressure 53 mm[Hg] Miko Ohara MD Work Phone: [facility] 2023 15:34-0500 Heart rate 80 /min Miko Oahra MD Work Phone: [facility] 2023 15:34-0500 Respiratory rate 16 /min Miko Ohara MD Work Phone: [employer] 2023 15:34-0500 SaO2% (BldA) [Mass fraction] 98 % Miko Ohara MD Work Phone: [facility] 2023 15:34-0500 Systolic blood pressure 110 mm[Hg] Miko Ohara MD Work Phone: [facility] 07-07-2023 16:39-0500 Body height 165.1 cm Miko Ohara MD Work Phone: [facility] 07-07-2023 16:39-0500 Body mass index (BMI) [Ratio] 28.02 kg/m2 Miko Ohara MD Work Phone: [facility] 07-07-2023 16:39-0500 Body weight 76.39 kg Miko Ohara MD Work Phone: [facility] 06-18-2023 14:31-0500 Body height 165.1 cm Miko Ohara MD Work Phone: [facility] 06-18-2023 14:31-0500 Body mass index (BMI) [Ratio] 28.12 kg/m2 Miko Ohara MD Work Phone: [employer] [facility] 06-18-2023 14:31-0500 Body weight 76.66 kg Miko Ohara MD Work Phone: [facility] 06-02-2023 11:19-0500 Body height 165.1 cm Donna Diaz MD Work Phone: [facility] 06-02-2023 11:19-0500 Body mass index (BMI) [Ratio] 28.12 kg/m2 Donna Diaz MD Work Phone: [facility] 06-02-2023 11:19-0500 Body weight 76.66 kg Donna Diaz MD Work Phone: [facility] 06-02-2023 11:19-0500 Diastolic blood pressure 68 mm[Hg] Donna Diaz MD Work Phone: [facility] 06-02-2023 11:19-0500 Heart rate 62 /min Donna Diaz MD Work Phone: [facility] [employer] 06-02-2023 11:19-0500 SaO2% (BldA) [Mass fraction] 99 % Donna Diaz MD Work Phone: [facility] 06-02-2023 11:19-0500 Systolic blood pressure 106 mm[Hg] Donna Diaz MD Work Phone: [facility] 05-14-2023 09:38-0500 Body height 165.1 cm Miko Ohara MD [facility] 05-14-2023 09:38-0500 Body mass index (BMI) [Ratio] 29.12 kg/m2 Miko Ohara MD Work Phone: [employer] 05-14-2023 09:38-0500 Body temperature 98.2 [degF] Miko Ohara MD Work Phone: [employer] 05-14-2023 09:38-0500 Body weight 79.38 kg Miko Ohara MD Work Phone: [employer] 10-30-2022 14:45-0400 Body height 165.1 cm Elliot Starks Other [employer] Other 10-30-2022 14:45-0400 Body mass index (BMI) [Ratio] 28.4 kg/m2 Elliot Starks Other [employer] Other 10-30-2022 14:45-0400 Body weight 77.43 kg Elliot Starks Other [employer] Other 10-30-2022 14:45-0400 Diastolic blood pressure 66 mm[Hg] Elliot Starks Other [employer] Other 10-30-2022 14:45-0400 Systolic blood pressure 123 mm[Hg] Elliot Starks Other [employer] Other 06-04-2022 11:30-0500 Body height 165.1 cm Elliot Starks Other [employer] Other 06-04-2022 11:30-0500 Body mass index (BMI) [Ratio] 28.29 kg/m2 Elliot Starks Other [employer] Other 06-04-2022 11:30-0500 Body weight 77.11 kg Elliot Starks Other [employer] Other 06-04-2022 11:30-0500 Diastolic blood pressure 64 mm[Hg] Elliot Starks Other [employer] Other 06-04-2022 11:30-0500 SaO2% (BldA) [Mass fraction] 99 % Elliot Raudel Other [employer] Other 06-04-2022 11:30-0500 Systolic blood pressure 104 mm[Hg] Elliot Starks Other [employer] Other Encounters Encounter Date Encounter Type Care Provider Facility Start: 07-20-2024 ambulatory Alfreda Moraesmalini Facility:[facility] Start: 07-14-2024 End: 07-14-2024 Postop follow up visit related to original px Paula Fitzpatrick APRN-UTILITY LINEMAN Work Phone: [facility] Comment on above: Hx of total hip arth roplasty, right (Primary Dx) Start: 07-14-2024 End: 07-14-2024 Subsequent hospital visit by physician Paula Fitzpatrick APRN-UTILITY LINEMAN Work Phone: [facility] Start: 07-14-2024 ambulatory ELLIOT STARKS [facility] Start: 06-30-2024 End: 07-06-2024 Refill Michael Castanon APRN-UTILITY LINEMAN Work Phone: [facility] Comment on above: Med Refill Start: 06-22-2024 End: 06-22-2024 ambulatory Maria E Osman Facility:[facility] Start: 06-22-2024 End: 06-22-2024 Lab Drop off Maria E Osman [facility] Start: 06-22-2024 End: 06-22-2024 ambulatory Maria E Osman [facility] Start: 06-22-2024 End: 06-22-2024 Patient encounter procedure Maria E Osman [facility] Start: 06-21-2024 End: 06-21-2024 ambulatory [facility] Work Phone: Start: 06-21-2024 End: 06-21-2024 Patient encounter procedure [facility] Work Phone: Start: 05-11-2024 Non-patient / Non-visit [facility] Work Phone: Start: 05-09-2024 End: 05-09-2024 ambulatory [facility] Work Phone: Start: 05-09-2024 End: 05-09-2024 Patient encounter procedure [facility] Work Phone: Start: 04-30-2024 End: 04-30-2024 Patient encounter procedure [facility] Work Phone: Start: 04-04-2024 End: 04-04-2024 ambulatory Daisy Liz MD Facility:[facility] Start: 02-01-2024 End: 02-01-2024 ambulatory [facility] Work Phone: Start: 02-01-2024 End: 02-01-2024 Patient encounter procedure [facility] Work Phone: Start: 01-02-2024 End: 01-05-2024 Refill Rosangela Montague GREEN FEED ATTENDANT-UTILITY LINEMAN [facility] Comment on above: Med Refill Start: 12-14-2023 End: 12-14-2023 ambulatory Daisy Liz MD Facility:[facility] Start: 11-26-2023 End: 11-26-2023 Subsequent hospital visit by physician Miko Ohara MD Work Phone: [facility] Start: 11-26-2023 ambulatory MIKO OHARA [facility] Start: 11-26-2023 End: 11-26-2023 Office outpatient visit 15 minutes Miko Ohara MD Work Phone: [facility] Comment on above: Hx of total hip arth roplasty, right (Primary Dx) Paroxysmal atrial fi brillation (CMS-HCC) (Primary Dx); Unstable angina (CMS-HCC); SOB (shortness of breath) Start: 11-25-2023 End: 11-25-2023 Telephone encounter Medina [facility] Start: 10-28-2023 End: 10-28-2023 ambulatory [facility] Work Phone: Start: 10-28-2023 End: 10-28-2023 Patient encounter procedure [facility] Work Phone: Start: 10-19-2023 End: 10-26-2023 Refill Mike Craft MD Work Phone: [facility] Comment on above: Med Refill Start: 09-30-2023 End: 10-01-2023 ambulatory ANDREW CHOI [facility] Start: 09-17-2023 Telephone encounter Matt Duron Hematology/Oncology Comment on above: Yearly Exam With Shane rodriguez Start: 08-20-2023 End: 08-20-2023 Subsequent hospital visit by physician Divine Dougherty Work Phone: [facility] Start: 08-20-2023 ambulatory DIVINE DOUGHERTY [facility] Start: 08-20-2023 End: 08-20-2023 Postop follow up visit related to original px Divine Dougherty Work Phone: [facility] Comment on above: Right hip pain (Prim hayden Dx) Start: 08-20-2023 ambulatory ELLIOT STARKS [facility] Start: 08-12-2023 End: 08-12-2023 ambulatory MIKO VASQUEZ [facility] Start: 08-10-2023 End: 08-13-2023 Refill Divine Kaur GREEN FEED ATTENDANT-UTILITY LINEMAN Work Phone: [facility] Comment on above: Med Refill Start: 07-23-2023 End: 07-23-2023 Postop follow up visit related to original px Divine M Brocwell Work Phone: [facility] Comment on above: Tear of gluteus mini mus tendon, right, initial encounter (Primary Dx) Start: 07-23-2023 End: 07-23-2023 Subsequent hospital visit by physician Divine Dougherty Work Phone: [facility] Start: 07-23-2023 ambulatory DIVINE DOUGHERTY [facility] Start: 07-17-2023 Refill Mike galloway MD Work Phone: [facility] Comment on above: Med Refill Start: 07-15-2023 End: 07-16-2023 Emergency department patient visit EILEEN BLANTON [facility] Start: 07-15-2023 Telephone encounter Ashia Goncalves RN [facility] Start: 07-15-2023 End: 07-15-2023 Emergency department patient visit ELLIOT STARKS [facility] Start: 07-07-2023 End: 2023 Evaluation and management of inpatient Miko Ohara MD Work Phone: [facility] Comment on above: Status post revision of total hip Start: 07-07-2023 End: 2023 Patient encounter status Miko Ohara MD Work Phone: [facility] Start: 07-01-2023 Patient encounter status [facility] Start: 06-19-2023 Telephone encounter Jacqueline Sparrow RN [facility] Comment on above: Pre op clearance Start: 06-18-2023 End: 06-18-2023 Office outpatient visit 40 minutes Miko Ohara MD Work Phone: [facility] Comment on above: Right hip pain (Prim hayden Dx) Start: 06-08-2023 End: 06-08-2023 ambulatory Daisy Liz MD Facility:[facility] Start: 06-02-2023 End: 06-02-2023 Office outpatient visit 25 minutes Donna Diaz MD Work Phone: [facility] Comment on above: Paroxysmal atrial fi brillation (CMS-HCC) (Primary Dx); Primary hypertension; Chronic coronary artery disease Start: 06-02-2023 End: 06-02-2023 [facility] Start: 05-25-2023 End: 05-25-2023 ambulatory Daisy Liz MD Facility:[facility] Start: 05-18-2023 End: 05-18-2023 ambulatory Daisy Liz MD Facility:[facility] Start: 05-14-2023 End: 05-14-2023 Office outpatient new 30 minutes Miko Ohara MD Work Phone: [facility] Comment on above: Pain in prosthetic j oint, initial encounter (Primary Dx); Primary osteoarthritis of right hip Start: 05-14-2023 End: 05-14-2023 Subsequent hospital visit by physician Miko Ohara MD Work Phone: [facility] Start: 03-30-2023 (Televisit) Televisit Elliot Starks [facility] Start: 03-30-2023 End: 03-30-2023 ambulatory Elliot Starks Other [employer] Other Start: 02-11-2023 End: 02-11-2023 Patient encounter procedure Alfreda Miller [facility] Start: 12-29-2022 Preoperative state Donna franks MD Work Phone: [facility] Start: 11-17-2022 End: 11-17-2022 ambulatory Elliot Starks Other [employer] Other Start: 11-17-2022 Telephone encounter Elliot Starks [facility] Start: 10-30-2022 End: 10-30-2022 ambulatory Elliot Starks Other [employer] Other Start: 10-30-2022 Office outpatient vi sit 15 minutes Elliot Starks [facility] Start: 10-29-2022 End: 10-29-2022 ambulatory Elliot Starks Other [employer] Other Start: 10-29-2022 Telephone encounter Elliot Starks [facility] Start: 10-27-2022 Nursing evaluation o f patient and report Elliot Starks [facility] Start: 10-27-2022 End: 10-27-2022 ambulatory Elliot Starks [facility] Other Start: 10-27-2022 End: 10-27-2022 Departed Referred MD Elliot Starks Work Phone: [facility] Work Phone: Start: 09-11-2022 Telephone encounter Matt Duron Hematology/Oncology Comment on above: Orders Start: 08-11-2022 End: 08-11-2022 ambulatory Elliot Starks Other [employer] Other Start: 08-11-2022 Nursing evaluation o f patient and report Elliot Starks [facility] Start: 07-17-2022 (Televisit) Televisit Elliot Dela Cruz [facility] Start: 07-17-2022 End: 07-17-2022 ambulatory Elliot Starks Other [employer] Other Start: 06-23-2022 End: 06-23-2022 ambulatory Elliot Starks Other [facility] Other Start: 06-23-2022 Nursing evaluation o f patient and report Elliot Starks [facility] Start: 06-09-2022 End: 06-09-[address] ELLIOT STARKS Facility:[facility] Start: 06-06-2022 End: 06-06-2022 ambulatory Elliot Starks Other [employer] Other Start: 06-06-2022 Telephone encounter Elliot Starks [facility] Start: 06-04-2022 End: 06-04-2022 ambulatory Elliot Starks Other [employer] Other Start: 06-04-2022 Office outpatient vi sit 25 minutes Elliot Starks [facility] Start: 05-21-2022 End: 05-21-2022 ambulatory Elliot Starks Other [employer] Other Start: 05-21-2022 Telephone encounter Elliot Starks [facility] Start: 04-26-2022 End: 04-26-[address] ELLIOT STARKS Facility:[facility] Start: 04-14-2022 End: 04-14-[address] ELLIOT STARKS Facility:[facility] Start: 12-18-2021 End: 12-18-2021 ambulatory Melchor [place] Facility:[facility] Start: 10-03-2021 Telephone encounter Andrew black MD Work Phone: Hematology/Oncology Comment on above: Lab Orders Start: 09-26-2021 Telephone encounter Mikaela jimenez RN Work Phone: Hematology/Oncology Comment on above: Radiology Mammogram Start: 12-02-2016 End: 12-03-2016 Ambulatory DEFAULT PHYSICIAN Facility:[facility] Procedures Date Procedure Procedure Detail Performing Clinician Start: 2023 Basic metabolic pane l calcium total Chance Mahoney MD Work Phone: Start: 2023 Complete blood count with white cell differential, automated Paula Fitzpatrick GRE[employer] FEED ATTENDANT-[employer]ILITY LINEMAN Work Phone: Start: 07-07-2023 Cultyp nuc acid amp prb cult/isolate ea orgnism Chance Mahoney MD Work Phone: Start: 07-07-2023 Radiologic examinati on pelvis 1/2 views Paula Fitzpatrick [employer]ED ATTENDANT-[employer]ILITY [employer]EMAN Work Phone: Start: 07-07-2023 Cell count miscellan [...] Adult BMI Screening Adult BMI Screen ing [facility] Start: 11-25-2024 Tobacco Screening Tobacco Screening [facility] Start: 09-29-2024 Adult BMI Screening Adult BMI Screen ing [facility] Start: 09-29-2024 Screening for malign ant neoplasm of breast MAMMOGRAM SCREENING DISCUSSION [facility] Start: 08-11-2024 Adult BMI Screening Adult BMI Screen ing [facility] Start: 08-11-2024 Tobacco Screening Tobacco Screening [facility] Start: 07-14-2024 Tobacco Screening Tobacco Screening [facility] Start: 07-14-2024 End: 07-14-2024 Patient encounter procedure 07/14/2024 11:20 AM EDT Office Visit [facility] [address] [place] [address] Miko Ohara MD [address] [place] [address] [facility] Start: 07-07-2024 Potassium [Moles/vol ume] in Serum or Plasma POTASSIUM [facility] Start: 06-02-2024 Adult BMI Screening Adult BMI Screen ing [facility] Start: 06-02-2024 Tobacco Screening Tobacco Screening [facility] Start: 02-16-2024 End: 02-16-2024 Patient encounter procedure 02/16/2024 11:00 AM EDT [facility] [address] [facility] [address] [place] [address] Sheridan Reyes MD [address] [place] [address] [facility] Start: 01-03-2024 COVID-19 Vaccine ( season) COVID-19 Vaccine ( season) [facility] Start: 01-03-2024 COVID-19 Vaccine ( season) COVID-19 Vaccine ( season) [facility] Start: 01-03-2024 Influenza vaccination [facility] Start: 11-26-2023 End: 11-26-2023 Patient encounter procedure [facility] Start: 10-09-2023 DIABETES SCREEN DIABETES SCREEN [facility] Start: 10-09-2023 Diabetes Screening Diabetes Screenin g [facility] Start: 08-20-2023 End: 08-20-2023 Patient encounter procedure 08/20/2023 2:30 PM EDT Office Visit [facility] [address] [place] [id number] Divnie Dougherty [address] [place] [id number] [facility] Start: 08-12-2023 End: 08-12-2023 Patient encounter procedure 08/12/2023 8:00 AM EDT Office Visit [facility] [address] [place] [phone] Miko Vasquez, GREEN FEED ATTENDANT-UTILITY LINEMAN [address] [place] [address] [facility] Start: 07-23-2023 End: 07-23-2023 Patient encounter procedure 07/23/2023 2:30 PM EDT Office Visit [facility] [address] [place] [phone] Divine Dougherty [address] [place] [id number] [facility] Start: 07-07-2023 End: 07-07-2023 Evaluation and management of inpatient [facility] Comment on above: Tear [...] 06/25/2023 10:00 AM EST Pre-Operative Nurse Assessment [facility] Pre Admission [address] [place] [phone] Pre-op testing (Primary Dx); Essential (primary) hypertension; Abnormal finding of blood chemistry, unspecified; Abnormal coagulation profile [facility] Comment on above: Pre-op testing (Prim hayden Dx); Essential (primary) hypertension; Abnormal finding of blood chemistry, unspecified; Abnormal coagulation profile Start: 06-13-2023 COVID-19 Vaccine ( season) COVID-19 Vaccine ( season) [facility] Start: 05-28-2023 End: 05-28-2023 Patient encounter procedure 05/28/2023 11:00 AM EST Office Visit [facility] [address] [place] [address] Peter Gardiner DO [address] [place] [address] [facility] Start: 05-14-2023 End: 05-14-2024 MR Hip - right WO contrast MRI HIP RIGHT WITHOUT CONTRAST Imaging Routine Pain in prosthetic joint, initial encounter Expected: 05/14/2023, Expires: 05/14/2024 [facility] Comment on above: Expected: 05/14/2023 , Expires: 05/14/2024 Start: 05-04-2023 Advance Directive Discussion Advance Directive Discussion [facility] Start: 05-04-2023 Behavioral Health Screening Behavioral Health Screening [facility] Start: 01-02-2023 Covid-19 Vaccine ( season) Covid-19 Vaccine ( season) [facility] Start: 01-02-2023 COVID-19 VACCINE ( season) COVID-19 VACCINE () [facility] Start: 01-02-2023 Influenza vaccination INFLUENZA (Sea son Ended) [facility] Start: 10-27-2022 Bacteria identified in Urine by Culture [facility] Start: 05-04-2022 ADVANCE DIRECTIVE DISCUSSION ADVANCE DIRECTIVE DISCUSSION [facility] Start: 05-04-2022 DEPRESSION ASSESSMENT DEPRESSION ASS ESSMENT [facility] Start: 04-08-2022 Screening for malign ant neoplasm of colon Colonoscopy [facility] Start: 01-02-2022 Influenza vaccination INFLUENZA (Sea son Ended) [facility] Start: 10-07-2021 End: 12-07-2021 Cancer Ag 27-29 [Units/volume] in Serum or Plasma CA 27.29 BLOOD Lab Routine Malignant neoplasm of upper-outer quadrant of left breast in female, estrogen receptor positive (HCC) Expected: 10/07/2021, Expires: 12/07/2021 [facility] Work Phone: Comment on above: Expected: 10/07/2021 , Expires: 12/07/2021 Start: 10-07-2021 End: 12-07-2021 CBC W Auto Differential panel - Blood CBC + DIFF Lab Routine Malignant neoplasm of upper-outer quadrant of left breast in female, estrogen receptor positive (HCC) Expected: 10/07/2021, Expires: 12/07/2021 [facility] Work Phone: Comment on above: Expected: 10/07/2021 , Expires: 12/07/2021 Start: 10-07-2021 End: 12-07-2021 Comprehensive metabolic 2000 panel - Serum or Plasma COMP METABOLIC PANEL Lab Routine Malignant neoplasm of upper-outer quadrant of left breast in female, estrogen receptor positive (HCC) Expected: 10/07/2021, Expires: 12/07/2021 [facility] Work Phone: Comment on above: Expected: 10/07/2021 , Expires: 12/07/2021 Start: 09-25-2021 Mammography MAMMOGRAM [facility] Start: 05-04-2021 ADVANCE DIRECTIVE DISCUSSION ADVANCE DIRECTIVE DISCUSSION [facility] Start: 11-17-2020 COVID-19 VACCINE (3 - Booster for Pfizer series) COVID-19 VACCINE (3 - Booster for Pfizer series) [facility] Start: 10-06-2020 Adult depression screening assessment DEPRESSION SCREENING [facility] Start: 08-15-2020 COVID-19 VACCINE (3 - Booster for Pfizer series) COVID-19 VACCINE (3 - Booster for Pfizer series) [facility] Start: 01-05-2019 Pneumococcal Vaccine : 65+ (2 of 2 - PCV) Pneumococcal Vaccine: 65+ (2 of 2 - PCV) [facility] Start: 01-05-2019 PNEUMOCOCCAL: 65+ (2 - PCV) PNEUMOCOCCAL: 65+ (2 - PCV) [facility] Start: 07-07-2012 BONE DENSITY BONE DENSITY [facility] Start: 07-07-2012 Fall Risk Screening Fall Risk Screen ing [facility] Start: 07-07-2012 Screening for osteoporosis Bone Density Screening [facility] Start: 2007 RSV Vaccine (1 - 1-d ose 60+ series) RSV Vaccine (1 - 1-dose 60+ series) [facility] Start: 07-07-1997 Administration of varicella zoster vaccine Zoster (Shingles) Vaccine (1 of 2) [facility] Start: 07-07-1997 SHINGRIX VACCINE (1 of 2) SHINGRIX VACCINE (1 of 2) [facility] Start: 07-07-1997 Zoster vaccine hzv l david for subcutaneous use ZOSTER (SHINGLES) VACCINE (1 of 2) [facility] Start: 07-07-1992 COLOGUARD (FIT-DNA) COLOGUARD (FIT-D NA) [facility] Start: 07-07-1992 Colonoscopy COLONOSCOPY [facility] Start: 07-07-1992 COLORECTAL CANCER SCREENING COLORECTAL CANCER SCREENING [facility] Start: 07-07-[address] COLONOGRAPHY [facility] Start: 07-07-1992 FECAL OCCULT BLOOD FECAL OCCULT BLOO D [facility] Start: 07-07-1992 LIPID SCREEN LIPID SCREEN [facility] Start: 07-07-1992 Screening for malign ant neoplasm of colon COLORECTAL CANCER SCREENING DISCUSSION [facility] Start: 07-07-1992 SIGMOIDOSCOPY SIGMOIDOSCOPY [facility] Start: 1987 Lipid panel LIPID SCREENING [facility] Start: 1987 Screening for malign ant neoplasm of breast MAMMOGRAM SCREENING DISCUSSION [facility] Start: 07-07-1968 Screening for malign ant neoplasm of cervix CERVICAL CANCER SCREENING DISCUSSION [facility] Start: 07-07-1966 DTaP,Tdap and Td Vaccines (1 - Tdap) DTaP,Tdap and Td Vaccines (1 - Tdap) [facility] Start: 07-07-1966 Third diphtheria, tetanus and acellular pertussis (DTaP) vaccination TDAP (ADULT) [facility] Start: 07-07-1966 Urine microalbumin profile [facility] Start: 07-07-1965 Adult BMI Follow Up Plan Adult BMI F ollow Up Plan [facility] Start: 07-07-1965 HEPATITIS C SCREENING HEPATITIS C SC REENING [facility] Start: 1959 Depression Screening Depression Scre ening [facility] Start: 07-07-1953 PNEUMOCOCCAL: 65+ (1 - PCV) PNEUMOCOCCAL: 65+ (1 - PCV) [facility] Start: 1947 Hepatitis C screening HEPATITI S C VIRUS SCREENING [facility] Start: 1947 Medicare Annual Well ness Visit Medicare Annual Wellness Visit [facility] Start: 1947 Potassium [Moles/vol ume] in Serum or Plasma POTASSIUM [facility] Start: 1947 Screening for osteoporosis DEXA SCAN DISCUSSION [facility] Start: 1947 Tetanus vaccination TETANUS [facility] ANAEROBE CULTURE [facility] Comment on above: Release Upon Orderin g for 1 Occurrences starting 07/07/2023 Bacterial culture an d sensitivity CULTURE WOUND Microbiology Routine 07/07/2023 2:27 PM EST [facility] BODY FLUID CELL COUNT BODY FLUID CELL COUNT Fluids Routine Tear of rotator cuff of right hip, initial encounter 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, initial encounter Release Upon Ordering for 1 Occurrences starting 07/07/2023 [facility] Comment on above: Release Upon Orderin g for 1 Occurrences starting 07/07/2023 End: 10-16-2024 DBT Breast - bilateral screening SHANE SCREENING [facility] Routine Encounter for screening mammogram for malignant neoplasm of breast 1 Occurrences starting 09/17/2023 until 10/16/2024 [facility] Work Phone: Comment on above: 1 Occurrences starti ng 09/17/2023 until 10/16/2024 End: 07-07-2023 Fungus identified in Unspecified specimen by Culture [facility] Comment on above: Release Upon Orderin g for 1 Occurrences starting 07/07/2023 One Time for 1 Occur rences starting 07/07/2023 until 07/07/2023 End: 10-26-2022 SHANE SCREENING [facility]CRE[facility] Routine Encounter for screening mammogram for malignant neoplasm of breast 1 Occurrences starting 09/26/2021 until 10/26/2022 [facility] Work Phone: Comment on above: 1 Occurrences starti ng 09/26/2021 until 10/26/2022 End: 10-11-2023 SHANE SCREENING W YAW HSANE SCREENING W YAW Radiology Routine Encounter for screening mammogram for malignant neoplasm of breast 1 Occurrences starting 09/11/2022 until 10/11/2023 [facility] Work Phone: Comment on above: 1 Occurrences starti ng 09/11/2022 until 10/11/2023 End: 07-07-2023 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 [facility] Comment on above: Release Upon Orderin g for 1 Occurrences starting 07/07/2023 One Time for 1 Occur rences starting 07/07/2023 until 07/07/2023 XR Pelvis and Hip - right Views XR HIP WITH PELVIS RIGHT Imaging Routine Primary osteoarthritis of right hip 05/14/2023 9:20 AM [facility] Work Phone: XR Pelvis and Hip - right Views XR HIP WITH PELVIS RIGHT Imaging Routine Tear of gluteus minimus tendon, right, initial encounter 07/23/2023 2:22 PM EDT [facility] XR Pelvis and Hip - right Views XR HIP WITH PELVIS RIGHT Imaging Routine Right hip pain 08/20/2023 3:17 PM EDT [facility] XR Pelvis and Hip - right Views XR HIP WITH PELVIS RIGHT Imaging Routine Hx of total hip arthroplasty, right 11/26/2023 1:53 PM EDT [facility] XR Pelvis and Hip - right Views XR HIP WITH PELVIS RIGHT Imaging Routine Hx of total hip arthroplasty, right 07/14/2024 1:07 PM EDT [facility] Immunizations Immunization Date Immunization Notes Care Provider Pablo wheat 02-08-2024 influenza virus vaccine, unspecified formulation Maria E Osman [facility] 02-10-2023 influenza virus vaccine, unspecified formulation Alfreda Lue [facility] 02-01-2022 influenza virus vaccine, unspecified formulation Alfreda Lue [facility] 08-13-2021 SARS-CoV-2 mRNA (fdjvaqfehtw-kcma-tkwsz se) vaccine Alfreda Lue [facility] 01-29-2021 SARS-CoV-2 (COVID-19 ) mRNA BNT-162b2 vax Alfreda Lue [facility] Comment on above: Result Comment: 2022: [id number] 06-20-2020 COVID-19 vaccine, ag e 12+ yr (PFIZER-BIONTECH - PURPLE TOP) Mikaela Thompson RN Work Phone: [facility] 05-28-2020 SARS-CoV-2 (COVID-19 ) mRNA BNT-162b2 vax Alfreda Lue [facility] 05-18-2020 COVID-19 vaccine, ag e 12+ yr (PFIZER-BIONTECH - PURPLE TOP) Mikaela Thompson RN Work Phone: [facility] 01-27-2020 influenza virus vaccine, split virus (incl. purified surface antigen) Elliot Starks Other [facility] Other 01-27-2020 influenza virus vaccine, unspecified formulation Alfreda Lue [facility] 01-20-2019 influenza virus vaccine, unspecified formulation Alfreda Lue [facility] 01-20-2019 influenza, high dose seasonal, preservative-free Mikaela Thompson RN Work Phone: [facility] 03-09-2018 influenza virus vaccine, unspecified formulation Alfreda Lue [facility] 01-05-2018 influenza virus vaccine, split virus (incl. purified surface antigen) Elliot Starks Other [facility] Other 01-05-2018 influenza virus vaccine, unspecified formulation Alfreda Lue [facility] 01-05-2018 influenza, high dose seasonal, preservative-free Mikaela Thompson RN Work Phone: [facility] 01-05-2018 pneumococcal polysaccharide vaccine, 23 valent Mikaela Thompson RN Work Phone: [facility] 02-25-2017 influenza virus vaccine, unspecified formulation Alfreda Lue [facility] 02-17-2017 pneumococcal polysaccharide vaccine, 23 valent Alfreda Lue [facility] 02-05-2017 influenza virus vaccine, split virus (incl. purified surface antigen) Elliot Starks Other [facility] Other 02-05-2017 influenza virus vaccine, unspecified formulation Alfreda Lue [facility] 02-05-2017 pneumococcal conjuga te vaccine, 13 valent Alfreda Miller [facility] 02-01-2002 pneumococcal polysaccharide vaccine, 23 valent Elliot Starks Other [facility] Payers Date Payer Category Payer Private Health Insurance 2023 Medicare (Managed Care) MEDICARE AET[employer] PPO [id number] 2022 Self-pay 2021 Medicare HMO [employer]ET[employer] MEDICARE [id number] 2014 Medicare AETNA MEDICARE A ETNA MEDICARE PPO [id number] 2014-Present [phone] [address] [place] [address] [facility] [id number] 2014 Medicare [id number]. [id number] 1959 Medicare [id number] 1945 Unknown [id number] 2.16840.1.924802.3.579.2. 593 1945 Unknown [id number] 2.16840.1.132225.3.579.2. 593 1945 Unknown [id number] 2.16840.1.289703.3.579.2. 593 1945 Unknown [id number] 2.16840.1.433123.3.579.2. 718 1945 Unknown [id number] 2.840.1.514266.3.579.2. 1286 1945 Unknown [id number] 2.840.1.574334.3.579.2. 128 1945 Unknown [id number] 2.840.1.526974.3.579.2. 1286 1945 Unknown [id number] 2.840.1.843775.3.579.2. 1286 1947 Unknown [id number] 2.840.1.370660.3.579.2. 1286 1947 Unknown [id number] 2.0.1.324694.3.579.2. 196 1945 Unknown [id number] 2.840.1.418490.3.579.2. 196 1945 Unknown [id number] 2.16840.1.376327.3.579.2. 196 1947 Unknown [id number] 2.16840.1.480779.3.579.2. 196 1945 Unknown [id number] 2.840.1.121494.3.579.2. 196 1945 Unknown [id number] 2.16.840.1.691753.3.579.2. 727 1945 Unknown [id number] 2.16.840.1.345264.3.579.2. 727 1947 Unknown [id number] 2.16.840.1.546506.3.579.2. 727 1945 Unknown [id number] 2.16.840.1.936936.3.579.2. 983 1945 Unknown [id number] 2.16.840.1.493208.3.579.2. 983 1945 Unknown [id number] 2.16.840.1.745436.3.579.2. 983 1945 Unknown [id number] 2.16.840.1.598556.3.579.2. 983 1945 Unknown [id number] 2.16.840.1.699151.3.579.2. 983 1945 Unknown [id number] 2.16.840.1.446458.3.579.2. 983 1945 Unknown [id number] 2.16.840.1.957282.3.579.2. 983 1945 Unknown [id number] 2.16.840.1.125672.3.579.2. 983 Private Health Insurance Aena [facility] [id number] Unknown Unknown [id number] 2.16.840.1.484259.3.579.2. 531 Social History Date Type Detail Facility Start: 12-03-2015 End: 11-26-2023 Tobacco smoking status NHIS Ex-smoker [facility] End: 12-05-1990 History of tobacco use Current smoker [facility] Start: 12-03-2015 End: 07-07-2023 Cigarettes smoked current (pack per day) - Reported 1 [facility] Start: 12-03-2015 End: 05-14-2023 Tobacco use and exposure Smokeless tobacco non-user [facility] Start: 10-08-2020 End: 07-14-2024 Alcohol intake Current drinker of alcohol (finding) [facility] Start: 1945 Sex Assigned At Not on file [facility] Start: 05-14-2023 End: 07-07-2023 Sex Assigned At [facility] End: 12-05-1990 History of tobacco use Cigarette Smoker [facility] Start: 1945 Sex Assigned At Female F [facility] Tobacco smoking status Never [facility] Start: 05-14-2023 Tobacco smoking stat us NHIS Never smoked tobacco [facility] Has the Foodlve, oil, or water company threatened to shut off services in your home in past 12Mo No [facility] (I/We) worried whemiky er (my/our) food would run out before (I/we) got money to buy more. Never true [facility] Start: 03-19-2017 End: 06-19-2023 Alcohol Comment social [facility] Start: 04-17-2023 End: 05-09-2024 Sex Female (finding) [facility] Start: 03-31-2022 Tobacco Comment quit in 1989 [facility] Start: 05-09-2018 Gender identity Identifies as female gender (finding) [facility] Medical Equipment Procedure Code Equipment Code Equipment Origin al Text Equipment Identifier Dates Anchors, 5.5 Non Punching - [id number] Start: 07-07-2023 Anchors, 5.5 Non Punching - [id number] Start: 07-07-2023 Functional Status Date Assessment Result Facility 06-22-2024 Functional Status N/A [facility] 07-07-2023 Are you deaf, or do you have serious difficulty hearing No 07/07/2023 4:30 PM Marcella Muñoz, RICARDO No [facility] 07-07-2023 Are you blind, or do you have serious difficulty seeing, even when wearing glasses No 07/07/2023 4:30 PM Marcella Muñoz RN No [facility] 07-07-2023 Do you have serious difficulty walking or climbing stairs No 07/07/2023 4:30 PM Marcella Muñoz RN [facility] 07-07-2023 Do you have difficul ty dressing or bathing No 07/07/2023 4:30 PM Marcella Muñoz RN [facility] 07-07-2023 Because of a physica l, mental, or emotional condition, do you have difficulty doing errands alone such as visiting a physician's office or shopping No 07/07/2023 4:30 PM Marcella Muñoz RN [facility] 02-11-2023 Functional Status N/A [facility] Mental Status Date Assessment Result Facility 07-07-2023 Because of a physica l, mental, or emotional condition, do you have serious difficulty concentrating, remembering, or making decisions No 07/07/2023 4:30 PM Marcella Muñoz RN [facility] Clinical Notes 09-26-2021 to 07-14-2024 Svitlana Oconnelln - 07/14/2024 2:00 PM Kishore Fitzpatrick APRN-AUSTEN - 07/14/2024 2:00 PM EDTTelephone Encounter - Mami Cifuentes RN - 06/30/2024 12:22 AM EST Note Date & Type Note Facility 07-14-2024 History of Presen t illness Narrative Ortho Nurse - Established Patient Intake Room#: 5 Date: 07/14/2024 1:15 PM Patient: Bettie Burns MR#: [id number] : 1945 Age: 79 y.o. 1yr R PAULA Pt stated she is doing fine, denies any pain at this time. Referring Physician: Self, Self Insurance: Payor: MEDICARE [...] LUMPECTOMY FOOT SURGERY HEART CATHETERIZATION no stents [place] ENDOMETRIAL CRYOABLATION W/US & ENDOMETRIAL CR REMOVAL [...] x 1 month, then 2x/week for maintainence, [facility]/pharmacy #[id number], 165, cm, 02/11/23 10:41:00 EDT, Height/Length Dosing, [...] x 1 month, then 2x/week for maintainence, [facility]/pharmacy #[id number], 165, cm, 02/11/23 10:41:00 EDT, Height/Length Dosing, [...] their operative hip. She is status post previous total hip arthroplasty with abductor repair one year ago. She is about a year out, reports that she is doing well and is pleased with the outcome of the intervention. The hip feels better now than it did before, and she is not having any new symptoms with it. PHYSICAL EXAM: The bilateral lower extremities were evaluated. The operative lower extremity is soft, nontender with full and supple motion of the hip. No pain, no impingement. No instability. The contralateral extremity has full motion, normal stability, no tenderness. Bilateral lower extremities have normal neurovascular status. Skin otherwise intact. DIAGNOSTIC STUDIES/INTERPRETATION: Plain film radiographs reviewed. She has a total hip arthroplasty in good position and alignment. No evidence of prosthetic implant loosening or migration. IMPRESSION: Stable status post total hip arthroplasty, doing well. PLAN: I am pleased with the outcome of intervention. She has made an excellent recovery. I expect continued improvement in strength and mobility moving forward. I recommend followup in 2 years for repeat clinical and radiographic examination or sooner if any new symptoms develop. Tylenol may be used to manage any occasional aches and pains. She will call with any questions or concerns in the meantime. Greater than 20 minutes time was spent in review of the medical records, review of previous imaging, and more than 50% of that time was spent on face to face time with patient. Paula Fitzpatrick APRN-AUSTEN I have reviewed the findings of my clinical staff below and agree with their assessment. Ortho Nurse - Established Patient Intake Room#: 5 Date: 07/14/2024 1:15 PM Patient: Bettie Burns MR#: [id number] : 1945 Age: 79 y.o. 1yr R PAULA Pt stated she is doing fine, denies any pain at this time. Referring Physician: Self, Self Insurance: Payor: MEDICARE [...] LUMPECTOMY FOOT SURGERY HEART CATHETERIZATION no stents [place] ENDOMETRIAL CRYOABLATION W/US & ENDOMETRIAL CR REMOVAL [...] x 1 month, then 2x/week for maintainence, [facility]/pharmacy #[id number], 165, cm, 02/11/23 10:41:00 EDT, [...] x 1 month, then 2x/week for maintainence, [facility]/pharmacy #[id number], 165, cm, 02/11/23 10:41:00 EDT, [...] documented in this encounter [facility] 06-30-2024 Miscellaneous Notes OV 11/26/2023 documented in this encounter [facility] 06-30-2024 Telephone encounter Note OV 11/26/2023 [facility] 06-22-2024 Hospital Discharg e instructions Patient Education 06/22/2024 15:04:23 [...] Follow these instructions at home: Medicines Take niuc-vtk-rwzznok and prescription medicines only as told by [...] or the blood stops without treatment. Take asmq-xhe-opezrmc and prescription medicines only as told by your health care provider. Drink enough fluid to keep your urine pale yellow. This information is not intended to replace advice given to you by your health care provider. Make sure you discuss any questions you have with your health care provider. Document Revised: 12/19/2020 Document Reviewed: 12/19/2020 [employer] Patient Education 2023 [employer]. 06/22/2024 15:04:17 Overactive Bladder, Adult Overactive Bladder, [...] your health care provider. General instructions Take rsyx-mwu-hnuzrbt and prescription medicines only as told by [...] provider. Document Revised: 01/07/2021 Document Reviewed: 01/07/2021 [employer] Patient Education 2023 [employer]. Follow Up Care 06/22/2024 10:24:57 With:Paul VILLEGAS, PERLA Araujo, URO Address: When: Unknown Comments:F/U pending cystoscopy [facility] 06-22-2024 Note Patient Education Obstetrics and Gynecology [...] health care provider. General instructions ??? Take xteb-rat-uihracs and prescription medicines only as told by [...] drink, and whe (more content not included)... [facility] 04-30-2024 Evaluation note Diagnosis Onset Date Resolution Acute bilateral otitis media acute April 30, 2 024 9:54am [facility] Work Phone: 1(678) 358-975312-28-2024 Evaluation note* Diagnosis Onset Date Resolution Status Admit Date Acute bilateral otitis media acute April 30, 2024 9:54am Acute otitis media with effusion acute May 09 9:07am Insomnia acute May 09 025 9:07am Reaction, situational, acute , to stress acute May 09 9:07am [facility] Work Phone: 1(128) 303-479208-31-2024 Miscellaneous Notes* Telephone Encounter - Jacinta Neri [...] Low 56 Low CM [facility] Telephone encounter Note* Telephone Encounter - Jacinta [...] >59 ml/min/1.73sq.m 46 Low 56 Low CM [id number] [id number] History of Present illness Narrative* Hal Fischer - 11/26/2023 2:00 PM EDT Ortho Nurse - Established Patient Intake Room#: 3 --- Patient presents today for 4 month follow-up of RTHA. Patient states that pain is 2/10today. Patient states that she is improved especially with PT, but is still limping more than she anticipated. Patient has been doing PT at [facility] and this helps, says next week is her last session. Patient states that she is due for nerve block in SI joint at [facility] who she seesregularly, states that she needs approval from Dr. Ohara on this. Date: 11/26/2023 2:25 PM Patient: Bettie Burns MR#: [id number] : 1945 Age: 78 y.o. Referring Physician: [...] LUMPECTOMY FOOT SURGERY HEART CATHETERIZATION no stents [place] ENDOMETRIAL CRYOABLATION W/US & ENDOMETRIAL CR REMOVAL [...] x 1 month, then 2x/week for maintainence, [facility]/pharmacy #[id number], 165, cm, 02/11/23 10:41:00 EDT, [...] x 1 month, then 2x/week for maintainence, [facility]/pharmacy #[id number], 165, cm, 02/11/23 10:41:00 EDT, [...] anticipated. Patient has been doing PT at [facility] and this helps, says next week is her last session. Patient states that she is due for nerve block in SI joint at [facility] who she seesregularly, states that she needs approval from Dr. Ohara on this. Date: 11/26/2023 2:25 PM Patient: Bettie Burns MR#: [id number] : 1945 Age: 78 y.o. Referring Physician: [...] LUMPECTOMY FOOT SURGERY HEART CATHETERIZATION no stents [place] ENDOMETRIAL CRYOABLATION W/US & ENDOMETRIAL CR REMOVAL [...] 1 month, then 2x/week for maintainence, [facility] #[id number], 165, cm, 02/11/23 10:41:00 EDT, Height/Length Dosing, [...] x 1 month, then 2x/week for maintainence, [facility]/pharmacy #[id number], 165, cm, 02/11/23 10:41:00 EDT, [...] oxycodone, penicillins, and tramadol. documented in this [facility]07-25-2024 History of Present illness Narrative* Mainor [...] Burns was seen in follow-up in the [place] office. Records are reviewed. She is a [...] avoidance. Past Medical History: Diagnosis Date A-fib ([facility]) hx of Arrhythmia 12/2016 ATRIAL FIBRILLATION Arthritis Breast cancer ([facility]) 11/14/2015 LEFT COVID-19 03/2020 [...] 05/16/2020 Performed by Melchor Rivera DO at [facility] ARTHROSCOPY SHOULDER Right 05/16/2020 Performed by Melchor Rivera DO at [facility] BREAST BIOPSY Left 2016 BREAST LUMPECTOMY Left 11/14/2015 WITH RADIATION BREAST SURGERY Left 2012 lumpectomy CATARACT EXTRACTION CHOLECYSTECTOMY COLONOSCOPY Coronary angiogram and left ventricular gram/pressure N/A 08/08/2021 Performed by Bertram Lal MD at [facility] CARDIAC CATH LABS EYE SURGERY [...] Needs: No Transportation Needs (07/07/2023) Received from [facility], [facility] PRAPARE - Transportation Lack of Transportation (Medical): No Lack of Transportation (Non-Medical): No Physical Activity: Not on file Stress: Not on file Social Connections: Not on file Interpersonal Safety: Not on file Housing Instability: Low Risk (07/07/2023) Received from [facility], [facility] Housing Stability Vital Sign Unable to Pay for Housing in the Last Year: No Number of Places Lived in the Last Year: 1 In the last 12 months, was there a time when you did not have a steady place to sleep or slept in ashelter (including now)?: No Review of Systems Review [...] STARKS MD Referring Physician: Elliot Starks MD [facility] [place] [address] documented in this encounterHenry County HospitalMelophone [facility] [id number] Miscellaneous Notes* Telephone Encounter - Medina Jaramillo MA - 11/25/2023 10:56 AM EDT Called patient to remind them to bring their most current copy of their medication list with them to their appt. Patient verbalizes understanding. [facility] in [facility] Telephone encounter Note* Telephone Encounter - Medina Jaramillo MA - 11/25/2023 10:56 AM EDT Called patient to remind them to bring their most current copy of their medication list with them to their appt. Patient verbalizes understanding. [facility]06-17-2024 Miscellaneous Notes* Telephone Encounter - Jacinta Neri RN - 10/19/2023 9:19 AM EDT Last OV 08/25 CMP 07/25 documented in this encounterRiverview [facility] Institute06-17-2024 Telephone encounter Note* Telephone Encounter - Jacinta Neri RN - 10/19/2023 9:19 AM EDT Last OV 08/25 CMP 07/25 [facility]05-16-2024 Telephone encounter Note* Telephone Encounter - Matt Adams RN - 09/17/2023 1:30 PM EDT Order faxed to Torey Julio Pt aware. Matt Adams RN [facility]05-16-2024 Miscellaneous Notes* Telephone Encounter - Matt Adams RN - 09/17/2023 1:30 PM EDT Order faxed to Torey Julio Pt aware. Matt Adams RN * Telephone Encounter - Matt Adams RN - 09/17/2023 10:18 AM EDT Pt called to request yearly Mammogram order I have pended order as previously completed Pt requests to fax to Nori Lema [phone] BRM/HM: please review and sign if agreeable Matt Adams RN [facility] Telephone encounter Note * Telephone Encounter - Matt Adams RN - 09/17/2023 10:18 AM EDT Pt called to request yearly Mammogram order I have pended order as previously completed Pt requests to fax to Nori Lema [phone] BRM/HM: please review and sign if agreeable Matt Adams RN [facility]04-18-2024 History of Present illness Narrative* Eva Abrams - 08/20/2023 2:30 PM EDT Ortho Nurse - Established Patient Intake Room#: room 2--- pt here today for 3 wk follow-up from 07/23/23 for a RT. ABD repair. Pt rates her pain on a scale of 3/10 today. Pt states she is doing better and seems to be progressing. Pt did ambulate in with a walker. Pt states she is interested in Physcial Therapy through [facility]. Date: 08/20/2023 2:38 PM Patient: Bettie Burns MR#: [id number] : 1945 Age: 78 y.o. Referring Physician: [...] LUMPECTOMY FOOT SURGERY HEART CATHETERIZATION no stents [place] ENDOMETRIAL CRYOABLATION REMOVAL BILIARY DUCT/GALLBLADDER CALCULI/DEBRIS PERCUTANEOUS [...] x 1 month, then 2x/week for maintainence, [facility]/pharmacy #[id number], 165, cm, 02/11/23 10:41:00 EDT, Height/Length Dosing, [...] morphine, oxycodone, penicillins, and tramadol. * Divine Dougherty - 08/20/2023 2:30 PM EDT Bettie Burns is [...] arise. All pertinant portions of the clinical office support clerk documentation was reviewed and I agree with their assessment. Divine Dougherty Ortho Nurse - Established Patient Intake Room#: room 2--- pt here today for 3 wk follow-up from OV 07/23/23 for a RT. ABD repair. Pt rates her pain on a scale of 3/10 today. Pt states she is doing better and seems to be progressing. Pt did ambulate in with a walker. Pt states she is interested in Physcial Therapy through [facility]. Date: 08/20/2023 2:38 PM Patient: Bettie Burns MR#: [id number] : 1945 Age: 78 y.o. Referring Physician: [...] LUMPECTOMY FOOT SURGERY HEART CATHETERIZATION no stents [place] ENDOMETRIAL CRYOABLATION REMOVAL BILIARY DUCT/GALLBLADDER CALCULI/DEBRIS PERCUTANEOUS [...] x 1 month, then 2x/week for maintainence, [facility]/pharmacy #[id number], 165, cm, 02/11/23 10:41:00 EDT, [...] oxycodone, penicillins, and tramadol. [facility] Miscellaneous Notes* Telephone Encounter - Ray Wills LPN - 08/10/2023 12:45 AM EDT Theresa 08/12/23 Cmp, mg 07/15/23 documented in this encounterR[facility]04-[facility]24 Telephone encounter Note* Telephone Encounter - Ray Wills LPN - 08/10/2023 12:45 AM EDT Theresa 08/12/23 Cmp, mg 07/15/23 [facility]03-21-2024 History of Present illness Narrative* Eva Abrams [...] 07/23/2023 2:45 PM Patient: Bettie Burns MR#: [id number] : 1945 Age: 78 y.o. Referring Physician: Divine Dougherty Insurance: Payor: MEDICARE AETNA HMO OR PPO [...] LUMPECTOMY FOOT SURGERY HEART CATHETERIZATION no stents [place] ENDOMETRIAL CRYOABLATION REMOVAL BILIARY DUCT/GALLBLADDER CALCULI/DEBRIS PERCUTANEOUS [...] x 1 month, then 2x/week for maintainence, [facility]/pharmacy #[id number], 165, cm, 02/11/23 10:41:00 EDT, Height/Length Dosing, [...] morphine, oxycodone, penicillins, and tramadol. * Divine Dougherty - 07/23/2023 2:30 PM EDT MRS Bettie [...] no erythema, drainage or evidence of dehiscence. [place] intact. Calves are soft and nontender with [...] arthrex anchors -Incision was cleansed with Betadine. [place] were removed without issue, steri strip placed. [...] visit. All pertinant portions of the clinical office support clerk documentation was reviewed. Divine Dougherty I have reviewed the findings of the clinical office support clerk and agree with their assessment. Divine Dougherty Ortho Nurse - Established Patient Intake Room#: [...] 07/23/2023 2:45 PM Patient: Bettie Burns MR#: [id number] : 1945 Age: 78 y.o. Referring Physician: Divine Dougherty Insurance: Payor: MEDICARE AET HMO OR PPO / Plan: MEDICARE AETNA [...] LUMPECTOMY FOOT SURGERY HEART CATHETERIZATION no stents [place] ENDOMETRIAL CRYOABLATION REMOVAL BILIARY DUCT/GALLBLADDER CALCULI/DEBRIS PERCUTANEOUS [...] x 1 month, then 2x/week for maintainence, [facility]/pharmacy #[id number], 165, cm, 02/11/23 10:41:00 EDT, [...] oxycodone, penicillins, and tramadol. documented in this [facility]03[facility]24 Miscellaneous Notes* Telephone Encounter - Estela Bueno RN - 07/17/2023 1:28 AM EDT Dose confirmed with patient [facility] Telephone encounter Note* Telephone Encounter - Estela Bueno RN - 07/17/2023 1:28 AM EDT Dose confirmed with patient [facility]03-13-2024 Miscellaneous Notes* Telephone Encounter - Ashia Goncalves [...] she was willing. slm documented in this encounterR[facility]03-13-2024 Telephone encounter Note* Telephone Encounter - Ashia [...] the ER and she was willing. slm [facility]03-06-2024 Miscellaneous Notes* Nursing Notes - Dolly Liao [...] 07, 2023 ATTENDING PHYSICIAN: Miko Ohara M.D. 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 PROCEDURE PERFORMED: Unlisted procedure of right hip and pelvis, dual-row suture anchor repair of 100% massive abductor tear of right hip, work equivalent similar to CPT 81583 Periarticular injection of right hip. ANESTHESIA: General. [...] it as a CPT similar to that, 99795. ATTENDING/ASSISTING PARTICIPATION: This operation could not have been safely performed (without compromising the technical results or length of the procedure) without the assistance of a skilled manager surgical. A manager surgical was medically necessary for positioning, retraction and [...] OPERATIVE/PROCEDURE NOTE Bettie Burns 77 y.o. female [id number] SURGEON Surgeons and Role: * Miko Ohara MD - Primary GLUED WOOD TESTER MEDINA Richardson ANESTHESIOLOGIST QUALITY ASSURANCE SUPERVISOR BODY: Chance Ngo CRNA; PALAK Barrett SURGICAL STAFF Electric Appliance Installer: Kisha Karimi RN; Whit Govea RN Nurse [...] Implant Name Type Inv. Item Serial No. Imaging Science Professor Lot No. LRB No. Used Action ANCHORS, 5.5 NON PUNCHING - [id number] ANCHORS, 5.5 NON PUNCHING HIST ARTHREX [id number] Right 1 Implanted ANCHORS, 5.5 NON PUNCHING - [id number] ANCHORS, 5.5 NON PUNCHING HIST ARTHREX [id number] Right 3 Implanted SPECIMENS ID Type Source [...] Miko Ohara MD 07/07/2023 1434 Paula Fitzpatrick APRN-UTILITY LINEMAN July 07, 2023 3:28 PM * Nursing Notes - Chelsea Bledsoe RN - 07/07/2023 10:52 AM EST Unable to doppler right dorsalis pedis pulse. documented in this encounterShel[facility]03-[facility]24 Nurse Note* Nursing Notes - Dolly [...] home with daughter and . [facility] Hospital Discharge instructions* Discharge Instructions* Carmen [...] at all times - Use a leg account resolution analyst to get in and out of bed [...] - 2023 12:01 PM EST Contact Office ([phone]) if: > Any falls or injuries > [...] incision. You will remove this dressing on 07/14/23. Gently peel back the dressing while [...] incision or operative leg. documented in this [facility]03-06-2024 History of Present illness Narrative* Carmen [...] for 07/23/23 @ 2:30 pm. * Divine Dougherty - 2023 7:21 AM EST Total Joint [...] LUMPECTOMY FOOT SURGERY HEART CATHETERIZATION no stents [place] ENDOMETRIAL CRYOABLATION REMOVAL BILIARY DUCT/GALLBLADDER CALCULI/DEBRIS PERCUTANEOUS [...] 0 Equipment Available wheeled walker;elevated toilet seat;shower chair;seed core operator Cognitive Status Examination Orientation Status (Cognition) oriented [...] Supine to Sit, Rehab Eval Level of [facility]: Supine/Sit stand-by assist Physical Assist/Nonphysical Assist: Supine/Sit 1 person assist Transfer Skill: Sit to Stand, Rehab Eval Level of [facility]: Sit/Stand contact guard Physical Assist/Nonphysical Assist: Sit/Stand 1 person assist Weight-Bearing Restrictions: Sit/Stand toe touch weight-bearing Assistive Device for Transfer: Sit/Stand wheeled walker Upper Body Dressing Level of [facility] independent Physical Assist/Nonphysical Assist set-up required Lower Body Dressing Level of [facility] maximum assist (25% patients effort) Physical Assist/Nonphysical Assist 1 person assist Assistive Device seed core operator General Therapy Interventions Planned Therapy Interventions (OT Eval) ADL retraining;balance training;transfer training Clinical Impression Co-evaluation/co-treatment performed? Yes, combination of simultaneous billable and individual billable skilled care was necessary due to medical complexity and functional deficits Patient Instruction/Education comments Pt instructed on LB dressing techniques donning underwear and shorts min assist in sitting and standing with training on use of seed core operator to maintain hip precautions Rehab Potential (OT [...] hygiene training Therapist Information License # [id number] 1. Pt will complete LB dressing SBA [...] LUMPECTOMY FOOT SURGERY HEART CATHETERIZATION no stents [place] ENDOMETRIAL CRYOABLATION REMOVAL BILIARY DUCT/GALLBLADDER CALCULI/DEBRIS PERCUTANEOUS [...] Assistive Device none used Level of Ambulation [facility] General Pain Documentation (Adult, OB, Peds) Presence [...] Supine to Sit, Rehab Eval Level of [facility]: Supine/Sit stand-by assist Physical Assist/Nonphysical Assist: Supine/Sit 1 person assist Transfer Skill: Sit To Stand, Rehab Eval [facility] (Sit-Stand Transfers) contact guard Physical Assist/Nonphysical Assist: Sit/Stand 1 person assist Weight-Bearing Restrictions: Sit/Stand toe touch weight-bearing Assistive Device For Transfer: Sit/Stand 2 wheeled walker Gait Skills, PT Eval Level of [facility]: Gait contact guard Physical Assist/Nonphysical Assist: Gait 1 person assist Weight-Bearing Restrictions: Gait toe touch weight-bearing Assistive Device For Transfer: Gait 2 wheeled walker Gait Distance 15 feet Gait Analysis, PT Eval Gait Pattern Used swing-to gait Balance Additional Documentation (Seated: Good; Standing: Fair-) Sensory Examination Sensory Examination WF Plan of Care Interventions Planned Therapy Interventions bed mobility training;edema control;endurance;gait training;strengthening;transfer training Additional Comments Pt educated on hip precautions, use of leg account resolution analyst and weight bearing status. Pteducated to only [...] DISCUSSED WITH DR OHARA. documented in this [facility]03-06-[facility]24 Hospital course Narrative* Chance Mahoney MD - 2023 7:27 AM EST Images from the original note were not included. Discharge Summary Name: Betite Burns Age: 78 y.o. Birthday: 1945 Admit [...] x 1 month, then 2x/week for maintainence, [facility]/pharmacy #[id number], 165, cm, 02/11/23 10:41:00 EDT, Height/Length Dosing, [...] Department Dept Phone 07/23/2023 2:30 PM Divine Leos [facility] Orthopedics [phone] documented in this encounterShel[facility]03-[facility]24 Surgery Postoperative evaluation and management note* Op Note - Miko Ohara MD - 2023 5:54 AM EST DATE OF PROCEDURE: July 07, 2023 ATTENDING PHYSICIAN: Miko Ohara M.D. 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 PROCEDURE PERFORMED: Unlisted procedure of right hip and pelvis, dual-row suture anchor repair of 100% massive abductor tear of right hip, work equivalent similar to CPT 45849 Periarticular injection of right hip. ANESTHESIA: General. [...] it as a CPT similar to that, 09283. ATTENDING/ASSISTING PARTICIPATION: This operation could not have been safely performed (without compromising the technical results or length of the procedure) without the assistance of a skilled manager surgical. A manager surgical was medically necessary for positioning, retraction and instrume ntation. [facility]03-06-2024 Nurse Note* Nursing Notes - Aidee Field RN - 2023 4:10 AM EST Assessment remains unchanged from previous. Neuro checks WN, abductor pillow in place. Call light within reach. [facility] [employer] [facility] [id number] Nurse Note* Nursing Notes - Aidee Field RN - 2023 12:05 AM EST Assessment remains unchanged from previous. Neuro checks WNL, abductor pillow in place. Denies futher needs, call light within reach. [facility] [employer] [facility] [id number] Consult note* Chance Mahoney MD - 07/07/2023 [...] LUMPECTOMY FOOT SURGERY HEART CATHETERIZATION no stents [place] ENDOMETRIAL CRYOABLATION REMOVAL BILIARY DUCT/GALLBLADDER CALCULI/DEBRIS PERCUTANEOUS [...] metabolic panel in the morning GI prophylaxis. [facility]03-05-2024 Consult note* Chance Mahoney MD - 07/07/2023 [...] LUMPECTOMY FOOT SURGERY HEART CATHETERIZATION no stents [place] ENDOMETRIAL CRYOABLATION REMOVAL BILIARY DUCT/GALLBLADDER CALCULI/DEBRIS PERCUTANEOUS [...] the morning GI prophylaxis. documented in this encounterShelby [facility]03-05-2024 Nurse Note* Nursing Notes - Marcella [...] reach. FAITH intact flashing green. [facility]03-05-[facility] Nurse Note* Sara Garcia RN - 07/07/2023 4:00 PM EST Patient transferred to [facility] via cart in stable condition. Report given to RICARDO Kim. Cart left in locked and lowest position with side rails up x2. Snack and call light given to patient. Monitorsand alarms on and attached to patient. * Edison Perez RN - 07/07/2023 3:30 PM EST Patient transported to PACU with Damián QUALITY ASSURANCE SUPERVISOR BODY. Reports given to Sara SILVA at 1530H. * Whit Govea RN - 07/07/2023 2:04 PM EST OR 3 room temp: 65.1F Humidity: 44% Fire score of: 2 documented in this encounterShelby [facility] Hospital03-05-2024 Nurse Surgical operation note* Sara Garcia RN - 07/07/2023 4:00 PM EST Patient transferred to [facility] via cart in stable condition. Report given to RICARDO Kim. Cart left in locked and lowest position with side rails up x2. Snack and call light given to patient. Monitorsand alarms on and attached to patient. [facility]03-05-2024 Nurse Surgical operation note* Edison Perez RN - 07/07/2023 3:30 PM EST Patient transported to PACU with Damián QUALITY ASSURANCE SUPERVISOR BODY. Reports given to Sara SILVA at 1530H. [facility]03-05-2024 Surgery Postoperative evaluation and management note* Brief Op Note - MEDINA Richardson - 07/07/2023 3:28 PM EST POST OPERATIVE/PROCEDURE NOTE Bettie Burns 77 y.o. female [id number] SURGEON Surgeons and Role: * Miko Ohara MD - Primary GLUED WOOD TESTER MEDINA Richardson ANESTHESIOLOGIST QUALITY ASSURANCE SUPERVISOR BODY: Chance Ngo CRNA; PALAK Barrett SURGICAL STAFF Electric Appliance Installer: Kisha Karimi RN; Whit Govea, RN Nurse Practitioner: MEDINA Richardson [...] Implant Name Type Inv. Item Serial No. Imaging Science Professor Lot No. LRB No. Used Action ANCHORS, 5.5 NON PUNCHING - [id number] ANCHORS, 5.5 NON PUNCHING HIST ARTHREX [id number] Right 1 Implanted ANCHORS, 5.5 NON PUNCHING - [id number] ANCHORS, 5.5 NON PUNCHING HIST ARTHREX [id number] Right 3 Implanted SPECIMENS ID Type Source Tests Collected by Time Destination A : Right hip incisional fluid (1-2) (Anaerobic & Aerobic) Fluid/Swab - Other SURGICAL WOUND ANAEROBE CULTURE Miko Ohara MD 07/07/2023 9416 B : Right hip fluid (cell count, defferential, & culture) Fluid, Unspecified FLUID, UNSPECIFIEDBODY FLUID CELL COUNT Miko Ohara MD 07/07/2023 9180 C : Right hip suture (1-3) (Anaerobic & Aerobic) Surgical Wound SURGICAL WOUND FUNGUS CULTURE, ACID FAST CULTURE, ANAEROBE CULTURE Miko Ohara MD 07/07/2023 1434 Paula Fitzpatrick APRN-UTILITY LINEMAN July 07, 2023 3:28 PM [facility] [employer] [id number] Nurse Surgical operation note* Whit Govea RN - 07/07/2023 2:04 PM EST OR 3 room temp: 65.1F Humidity: 44% Fire score of: 2 [facility] [employer] [id number] Nurse Note* Nursing Notes - Chelsea Bledsoe RN - 07/07/2023 10:52 AM EST Unable to doppler right dorsalis pedis pulse. [facility] [employer] [id number] Miscellaneous Notes* Telephone Encounter - Jacqueline Sparrow [...] to Dr Ohara office. documented in this encounterHenry County HospitalmyGreek02-16-2024 Telephone encounter Note* Telephone Encounter - Jacqueline [...] on risk, holding Eliquis and Celebrex question. [employer]02-16-2024 Telephone encounter Note* Telephone Encounter - Donna Diaz MD - 06/19/2023 12:01 PM EST Okay to proceed with surgery at moderate risk Can use Celebrex Hold Eliquis for 2 days resume after surgery [employer] Work Phone: [phone] Telephone encounter Note* Telephone Encounter - Jacqueline Sparrow RN - 06/19/2023 12:01 PM EST Clearance note faxed back to Dr Ohara office. [employer]02-15-2024 History of Present illness Narrative* Eva Abrams [...] year ago with Dr. Denver Hughes in [place]. Pt states she is looking for a second opinion due to having issues from this past surgery. Date: 06/18/2023 2:32 PM Patient: Bettie Burns MR#: [id number] : 1945 Age: 77 y.o. Referring Physician: Miko Ohara MD Insurance: Payor: MEDICARE AETNA HMO OR PPO / Plan: MEDICARE AETAsterias [employer] PPO / Product Type: *No Product type* [...] APPENDECTOMY BREAST LUMPECTOMY FOOT SURGERY HEART CATHETERIZATION [place] ENDOMETRIAL CRYOABLATION REMOVAL BILIARY DUCT/GALLBLADDER CALCULI/DEBRIS PERCUTANEOUS [...] elevated so referral was made to Dr. Gardiner for aspiration. Saw Dr. Gardiner on 05/28/23 for aspiration but it was [...] tendons as discussed in detail above. 3. Doeua-rr-wbicpyyc amount of fluid along the lateral aspect [...] nasal MRSA screening, scheduling an appointment for [facility] [place] and the potential surgical date, and reviewing [...] APPENDECTOMY BREAST LUMPECTOMY FOOT SURGERY HEART CATHETERIZATION [place] ENDOMETRIAL CRYOABLATION REMOVAL BILIARY DUCT/GALLBLADDER CALCULI/DEBRIS PERCUTANEOUS W/ IMAGE REMOVAL CATARACT (PEM) ROTATOR CUFF REPAIR History reviewed. No pertinent family history. Social History Socioeconomic History Marital status: Tobacco Use Smoking status: Never Smokeless tobacco: Never Social Determinants of Health Food Insecurity: No Food Insecurity (06/02/2023) Received from [facility] Hunger Screening Within the past 12 months [...] Morphine Oxycodone Penicillins Tramadol documented in this [facility]01-30-2024 History of Present illness Narrative* Donna [...] issues. Past Medical History: Diagnosis Date A-fib ([facility]) hx of Arrhythmia 12/2016 ATRIAL FIBRILLATION Arthritis Breast cancer ([facility]) 11/14/2015 LEFT COVID-19 03/2020 History of bleeding [...] 05/16/2020 Performed by Melchor Rivera DO at [facility] ARTHROSCOPY SHOULDER Right 05/16/2020 Performed by Melchor Rivera DO at [facility] BREAST BIOPSY Left 2016 BREAST LUMPECTOMY Left 11/14/2015 WITH RADIATION BREAST SURGERY Left 2013 lumpectomy CATARACT EXTRACTION CHOLECYSTECTOMY COLONOSCOPY Coronary angiogram and left ventricular gram/pressure N/A 08/08/2021 Performed by Bertram Lal MD at [facility] CARDIAC CATH LABS EYE SURGERY [...] STARKS MD Referring Physician: Elliot Starks MD [address] [place] [address] documented in this encounterHenry County HospitalMelophone [facility] [id number] History of Present illness Narrative* Divine Boudreaux - 05/14/2023 9:30 AM EST Ortho Nurse - Patient Intake Room#: 1 --- SALES MGR R Hip pain, had R THR in [...] 05/14/2023 9:44 AM Patient: Bettie Burns MR#: [id number] : 1945 Age: 77 y.o. Referring Physician: [...] [x]cane, []bracing Are you followed by a mail messenger contractor? [x] [] Name: Dr. Waleska Zhu - [facility] Are you followed by pain management? [x] [] Name: Dr. Cedeno - Pain Mgmt @ [facility] Are you followed by any other specialists? [x] [] Name: Oncolgist - Dr. Choi [facility] Urologist - Dr. Christian Bourne Outpatient [...] abductor muscles as well as ESR/CRP and [place] and Chromium labs today. I will see [...] APPENDECTOMY BREAST LUMPECTOMY FOOT SURGERY HEART CATHETERIZATION [place] ENDOMETRIAL CRYOABLATION REMOVAL BILIARY DUCT/GALLBLADDER CALCULI/DEBRIS PERCUTANEOUS [...] Morphine Oxycodone Penicillins Tramadol documented in this encounterShelby [facility] Hospital11-27-2023 Evaluation note* Encounter Date Diagnosis Assessment [...] verbalizes understanding and agrees with tx plan. [facility] Other [id number] Hospital Discharge instructions Patient Education 02/11/2023 11:16:08 [...] provider. Document Revised: 08/29/2021 Document Reviewed: 08/29/2021 [employer] Patient Education 2022 [employer]. Follow Up Care 11/06/2022 15:31:52 With:Paul VILLEGAS, PERLA Araujo, URO Address: When:Within 3 Month(s) [facility] [employer] 07-17-2023 Evaluation note* Encounter Date Diagnosis Assessment Notes Treatment Notes Treatment Clinical Notes Nov, Dysuria (ICD-10 - R30.0) [facility] Other 06-29-2023 Evaluation note* Encounter Date Diagnosis Assessment Notes Treatment Notes Treatment Clinical Notes Oct, Frequent UTI (ICD-10 - N39.0) Pt requests Urology referral. Discussed also getting CT to move along process. Oct, Dyshidrotic eczema (ICD-10 - L30.1) Will treat with steroid cream prn [facility] Other 06-26-2023 Evaluation note* Encounter Date Diagnosis Assessment Notes Treatment Notes Treatment Clinical Notes Oct, Dysuria (ICD-10 - R30.0) [facility] Other 05-11-2023 Miscellaneous Notes* Telephone Encounter - Matt Adams RN - 09/11/2022 11:43 AM EDT Order faxed to [facility] and pt is aware. Matt Adams RN * Telephone Encounter - Matt Adams RN - 09/11/2022 9:51 AM EDT Pt called to request yearly Mammogram order I have pended order as previously completed Pt requests to fax to Nori Lema [phone] BRM/HM: please review and sign if agreeable Matt Adams RN documented in this encounterFort Hamilton Hospital04-10-2023 Evaluation note* Encounter Date Diagnosis Assessment Notes Treatment Notes Treatment Clinical Notes Aug, Dysuria (ICD-10 - R30.0) [facility] Other 03-16-2023 Evaluation note* Encounter Date Diagnosis [...] N32.81) chronic and improved on present med [facility] Other 02-20-2023 Evaluation note* Encounter Date Diagnosis Assessment Notes Treatment Notes Treatment Clinical Notes Jun, Dysuria (ICD-10 - R30.0) [facility] Other 02-03-2023 Evaluation note* Encounter Date Diagnosis Assessment Notes Treatment Notes Treatment Clinical Notes Jun, OAB (overactive bladder) (ICD-10 - N32.81) [facility] Other 02-01-2023 Evaluation note* Encounter Date Diagnosis Assessment Notes Treatment Notes Treatment Clinical Notes Jun, OAB (overactive bladder) (ICD-10 - N32.81) Patient request to try new medication reviewed side effect profile. Patient declines urology or LAMINATION ASSEMBLER referral at this time. Jun, Essential hypertension (ICD-10 - I10) reviewed and updated medications she will follow-up with cardiology in Jun, Hypokalemia (ICD-10 - E87.6) Reviewed and updated medications. Discussed foods that are high in potassium Jun, Right lumbar pain (ICD-10 - M54.50) Follow-up with Dr. Rivera as scheduled in June. She does have limping with her gait. [facility] Other 05-26-2022 Miscellaneous Notes* Telephone Encounter - Andrew Choi MD - 09/26/2021 5:13 PM EDT Okay to change to screening mammogram. Order signed. ASIYA Ford * Telephone Encounter - Mikaela Thompson RN - 09/26/2021 2:33 PM EDT Pt scheduled for diagnostic mamm tomorrow @ [facility]. Hospital calls to ask if this could be changed to a screening mammogram since the pt is greater than 2 years from diagnosis? Mikaela Thompson RN documented in this encounterFort Hamilton HospitalEvaluation + Plan note Future Appointments Appointment Date:05/27/2023 08:45:00 AM Scheduled Provider:Alfreda Miller MD Location:[facility] Appointment Type:URO Office Visit [facility] evaluation + Plan note Future Appointments Appointment Date:07/22/2024 10:30:00 AM Scheduled Provider: Location:[facility] Appointment Type:Urology CALL [facility] Appointment Date:07/25/2024 08:15:00 AM Scheduled Provider: Location:[facility] Appointment Type:Urology FT [facility] evaluation + Plan note Future Appointments Appointment Date:07/22/2024 10:30:00 AM Scheduled Provider: Location:[facility] Appointment Type:Urology CALL PAT FT Appointment Date:07/25/2024 08:15:00 AM Scheduled Provider: Location:[facility] Appointment Type:Urology FT Diagnostic Tests Pending * Urine Culture 06/22/24 [facility] Evaluation note* Diagnosis Encounter for screening mammogram for malignant neoplasm of breast- Primary Other screening mammogram [facility]* Diagnosis Malignant neoplasm of upper-outer quadrant of left breast in female, estrogen receptor positive (HCC)- Primary documented in this encounter [facility] noteNo InformationNonorthwest medical center [employer] Other Evaluation note* Diagnosis Encounter for screening mammogram for malignant neoplasm of breast- Primary Other screening mammogram documented in this encounter [facility] noteNo assessment information [facility] Work Phone: Evaluation note* Diagnosis Pain in prosthetic joint, initial encounter- Primary Primary osteoarthritis of right hip Primary localized osteoarthrosis, pelvic region and thigh [facility] in this encounter [facility]* Diagnosis Right hip pain- Primary Pain in joint, pelvic region and thigh Pre-op testing- Primary Preoperative examination, unspecified Essential (primary) hypertension Unspecified essential hypertension Abnormal finding of blood chemistry, unspecified Abnormal coagulation profile Tear of rotator cuff of right hip, initial encounter 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, initial encounter documented in this encounter [facility]* Diagnosis Status post revision of total hip- Primary Hip joint replacement by other means Pre-op testing Preoperative examination, unspecified Tear of rotator cuff of right hip, initial encounter 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, initial encounter Acute postoperative pain of right hip documented in this encounter [facility]* Diagnosis Tear of gluteus minimus tendon, right, initial encounter- Primary [facility] Diagnosis Right hip pain- Primary Pain in joint, pelvic region and thigh documented [facility]* Diagnosis Onset Date Resolution Status Dysuria noneactive [facility] Work Phone: Evaluation note* Diagnosis Hx of total hip arthroplasty, right- Primary [facility]* Diagnosis Paroxysmal atrial fibrillation (CMS-HCC)- Primary Atrial fibrillation Primary hypertension Unspecified essential hypertension Chronic coronary artery disease Coronary atherosclerosis of unspecified type of vessel, [place] or graft documented in this encounter [facility] Diagnosis Paroxysmal atrial fibrillation (CMS-HCC)- Primary Atrial fibrillation Unstable angina (CMS-HCC) Intermediate coronary syndrome SOB (shortness of breath) Shortness of breath documented in this encounter [facility]* Diagnosis Hx of total hip arthroplasty, right- Primary [facility] - Reported* Type [...] replacement 12/16/2021 Hospitalization History SEE SURGICAL HX [facility] Other Hospital course Narrative No data available for this section [facility] Hospital Discharge instructions* Attachments The following attachments cannot be sent through Care Everywhere. * [facility] AMB SMOKING CESSATION LINKS [facility] No data available for this section [facility] InstructionsNot on filedocumented in this encounter [facility] filedocumented in this encounter [facility] on filedocumented in this encounter [facility]ructionsNot on filedocumented in this encounter [facility] filedocumented in this encounter [facility] filedocumented in this encounter [facility]Not [facility] filedocumented in this encounter [facility] No data available for this section [facility] Jason reason for referral (narrative)* Diagnostic Procedure Only (Routine) - Pending Review Specialty Diagnoses / Procedures Referred By Juan t Referred To Contact [facility] Diagnoses Encounter for screening mammogram for malignant neoplasm of breast Procedures SHANE SCREENING W YAW SCREENING DIGITAL BREAST TOMOSYNTHESIS BI SCREENING MAMMOGRAPHY BI 2-VIEW BREAST INC Andrew Miguel MD [address] [place] [address] Imaging [employer] [place] [phone] Referral ID Status Reason Start Date Expiration Date Visits Requested Visits Authorized [id number] Pending Review Auto-Generat ed Referral 09/26/2021 10/26/2022 1 1 [facility] for referral (narrative)* Diagnostic Procedure Only (Routine) - Pending Review Specialty Diagnoses / Procedures Referred By Juan wren Referred To Contact [facility] Diagnoses Encounter for screening mammogram for malignant neoplasm of breast Procedures SHANE SCREENING W YAW SCREENING DIGITAL BREAST TOMOSYNTHESIS BI SCREENING MAMMOGRAPHY BI 2-VIEW BREAST INC Andrew Miguel MD [address] [place] [address] Imaging [address] [address] Referral ID Status Reason Start Date Expiration Date Visits Requested Visits Authorized [id number] Pending Review Auto-Generat ed Referral 09/11/2022 10/11/2023 1 1 [facility] for referral (narrative)* (Routine) Specialty Diagnoses / Procedures Referred By Juan t Referred To Contact [facility] RE[facility] LOC [address] [place] [address] Referral ID Status Reason Start Date Expiration Date Visits Re quested Visits Authorized [facility] for referral (narrative)* Consultation (Routine) - Patient to Arrange Specialty Diagnoses / Procedures Referred By Contac t Referred To Contact Physical Therapy Diagnoses Right hip pain Etiennenery Divine M [address] [place] [address] Referral ID Status Reason Start Date Expiration Date V isits Requested Visits Authorized [id number] Patient to Arrange 08/20/2023 09/13/2024 1 1 Scheduling Instructions . * Diagnostic X-Ray (Routine) - New Request Specialty Diagnoses / Procedures Referred By Contac t Referred To Contact Diagnoses Right hip pain Procedures XR HIP WITH PELVIS RIGHT Ela Divine M [address] [place] [id number] Referral ID Status Reason Start Date Expiration Date V isits Requested Visits Authorized [id number] New Request 08/20/2023 09/13/2024 1 1 [facility] for referral (narrative)* Diagnostic Procedure Only (Routine) - Pending Review Specialty Diagnoses / Procedures Referred By Contac t Referred To Contact [facility] Diagnoses Encounter for screening mammogram for malignant neoplasm of breast Procedures SHANE SCREENING W YAW SCREENING DIGITAL BREAST TOMOSYNTHESIS BI SCREENING MAMMOGRAPHY BI 2-VIEW BREAST INC Andrew Miguel MD [address] [place] [address] [place] [address] [facility] [address] [place] [address] Referral ID Status Reason Start Date Expiration Date Visits Requested Visits Authorized [id number] Pending Review Auto-Generat ed Referral 09/17/2023 10/16/2024 1 1 [facility] for visit Narrative* Diagnostic X-Ray (Routine) - New Request Specialty Diagnoses / Procedures Referred By Juan t Referred To Contact Diagnoses Hx of total hip arthroplasty, right Procedures XR HIP WITH PELVIS RIGHT Paula Fitzpatrick APRN-[employer] [address] [place] [address] Phone: tel: fax: Referral ID Status Reason Start Date Expiration Date V isits Requested Visits Authorized [id number] New Request 07/12/2024 08/06/2025 1 1 [employer] Summary Purpose Family History No Family History Records Found Relationship Condition Age at Onset Recorded Date/T nilam father Unknown mother Unknown Advance Directives No Advanced Directives Records FoundDocuments on File Type Date Recorded 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 Advance Directives/Living Will 06/25/2023 9:17 AM DURABLE POWER OF HYDROGEN CELL TENDER FOR HEALTHCARE 06/25/23 Advance Directives/Living Will 06/25/2023 [...] Documents on File Type Date Recorded 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 Living Will 05/21/2020 9:37 AM Durable Power of Stars Coordinator 05/21/2020 9:27 AM Durable Power of Stars Coordinator 05/16/2020 6:05 AM Living Will 05/16/2020 6:04 [...] Health Care Agent Samantha Inman Daughter First [facility] re Agent Reason for Referral Specialty Diagnoses / Procedures Referred By Juan t Referred To Contact Diagnoses Hx of total hip arthroplasty, right Procedures XR HIP WITH PELVIS RIGHT Miko Ohara MD [address] [place] [address] Referral ID Status Reason Start Date Expiration Date V isits Requested Visits Authorized [id number] New Request 11/16/2023 12/10/2024 1 1 Specialty Diagnoses / Procedures Referred By Contac t Referred To Contact Diagnoses Tear of gluteus minimus tendon, right, initial encounter Procedures XR HIP WITH PELVIS RIGHT Divine Duogherty [address] [place] [address] Referral ID Status Reason Start Date Expiration Date V isits Requested Visits Authorized [id number] New Request 07/20/2023 08/13/2024 1 1 Specialty Diagnoses / Procedures Referred By Contac t Referred To Contact Diagnoses Pain in prosthetic joint, initial encounter Procedures MRI HIP RIGHT WITHOUT CONTRAST [place] MRI LOWER EXTREM JT, W/O CONTRAST Miko Ohara MD [address] [place] [phone] Referral ID Status Reason Start Date Expiration Date V isits Requested Visits Authorized [id number] New Request 05/14/2023 06/07/2024 1 1 Specialty Diagnoses / Procedures Referred By Contac t Referred To Contact Diagnoses Pain in prosthetic joint, initial encounter Procedures COBALT AND CHROMIUM,WB Miko Ohara MD [address] [place] [address] Referral ID Status Reason Start Date Expiration Date V isits Requested Visits Authorized [id number] New Request 05/14/2023 06/07/2024 1 1 Specialty Diagnoses / Procedures Referred By Juan t Referred To Contact Diagnoses Primary osteoarthritis of right hip Procedures XR HIP WITH PELVIS RIGHT Miko Ohara MD [address] [place] [address] Referral ID Status Reason Start Date Expiration Date V isits Requested Visits Authorized [id number] New Request 05/06/2023 05/30/2024 1 1 Reason *FU 11/12 Jason office Diagnosis 1 Frequent UTI (N39.0) Referral Organization [facility] tam Referring Provider First Name Elliot Referring Provider Last Name Raudel Referring Provider Specialty Family [facility] Referred Organization [facility] Referred Provider ALFREDA MILLER Referred Address [address] [place], [place],[address] Referred Provider Specialty Urology Referral Priority Routine [...] section and content) DATE CREATED AUTHOR 10/28/2017 [facility] DATE CREATED AUTHOR AUTHOR'S ORGANIZ ATION 03/21/2020 [facility] DATE CREATED AUTHOR AUTHOR'S ORGANIZ ATION 09/13/2021 [facility] dical Specialist DATE CREATED AUTHOR AUTHOR'S ORGANIZ ATION 06/11/2022 [facility] DATE CREATED AUTHOR AUTHOR'S ORGANIZ ATION 11/18/2022 [facility] DATE CREATED AUTHOR AUTHOR'S ORGANIZ ATION 05/20/2023 [facility] DATE CREATED AUTHOR AUTHOR'S ORGANIZ ATION 09/19/2023 [facility] DATE CREATED AUTHOR AUTHOR'S ORGANIZ ATION 10/01/2023 [facility] DATE CREATED AUTHOR AUTHOR'S ORGANIZ ATION 04/08/2024 [facility] DATE CREATED AUTHOR AUTHOR'S ORGANIZ ATION 06/24/2024 [facility] DATE CREATED AUTHOR AUTHOR'S ORGANIZ ATION 06/26/2024 [facility] DATE CREATED AUTHOR AUTHOR'S ORGANIZ ATION 06/30/2024 [facility] DATE CREATED AUTHOR AUTHOR'S ORGANIZ ATION 07/17/2024 [facility] Comments (unrecognize d section and content) In the event this informatio n is protected by the Federal Confidentiality of Alcohol and Drug Abuse Patient Records regulations: The Federal rules restrict any use of the information to criminally investigate or prosecute any alcohol or drug abuse patient.[facility] the event this information is protected by the Federal Confidentiality of Alcohol and Drug Abuse Patient Records regulations: The Federal rules restrict any use of the information to criminally investigate or prosecute any alcohol or drug abuse patient.[facility] the event this information is protected by the Federal Confidentiality of Alcohol and Drug Abuse Patient Records regulations: The Federal rules restrict any use of the information to criminally investigate or prosecute any alcohol or drug abuse patient.[facility] the event this information is protected by the Federal Confidentiality of Alcohol and Drug Abuse Patient Records regulations: The Federal rules restrict any use of the information to criminally investigate or prosecute any alcohol or drug abuse patient.[facility] Reason for Visit (unrecogniz ed section and content) Reason Comments Radiology Mammogram Reason Comments Lab Orders Reason Comments Orders Specialty Diagnoses / Procedures Referred By Juan wren Referred To Contact Diagnoses Primary osteoarthritis of right hip Procedures XR HIP WITH PELVIS RIGHT Miko Ohara MD [address] [place] [address] Referral ID Status Reason Start Date Expiration Date V isits Requested Visits Authorized [id number] New Request 05/06/2023 05/30/2024 1 1 Reason [...] right hip prosthesis, initial encounter [T84.090A] Procedures [place] PELVIS/HIP JOINT SURGERY UNLISTED [place] REVISE TOTAL HIP REPLACEMENT GLUTEUS MEDIUS TENDON REPAIR REVISION ARTHROPLASTY HIP BOTH ACETABULAR & FEMORAL COMPONENTS Miko Ohara MD [address] [place] [address] Referral ID Status Reason Start Date Expiration Date Visits Re quested Visits Authorized [id number] 06/19/2023 1 1 Reason Comments Post Op Visit Specialty Diagnoses / Procedures Referred By Juan wren Referred To Contact Diagnoses Tear of gluteus minimus tendon, right, initial encounter Procedures XR HIP WITH PELVIS RIGHT Divine Dougherty [address] [place] [address] Referral ID Status Reason Start Date Expiration Date V isits Requested Visits Authorized [id number] New Request 07/20/2023 08/13/2024 1 1 Reason Comments Follow-up Specialty Diagnoses / Procedures Referred By Juan wren Referred To Contact Diagnoses Right hip pain Procedures XR HIP WITH PELVIS RIGHT Divine Dougherty [address] [place] [phone] Referral ID Status Reason Start Date Expiration Date V isits Requested Visits Authorized [id number] New Request 08/20/2023 09/13/2024 1 1 Reason Comments Yearly Exam With Mammogram Reason Comments Pain Specialty Diagnoses / Procedures Referred By Juan wren Referred To Contact Diagnoses Hx of total hip arthroplasty, right Procedures XR HIP WITH PELVIS RIGHT Miko Ohara MD [address] [place] [address] Referral ID Status Reason Start Date Expiration Date V isits Requested Visits Authorized [id number] New Request 11/16/2023 12/10/2024 1 1 Reason Comments Follow-up est pt concerns of a fib per smart watch wants seen sooner. sched w/pt pt will arrive at 11:30 Reason Onset Date Comments Med Refill 10/19/2023 Reason Onset Date Comments Pre op clearance 06/19/2023 Reason Comments Follow-up Hypertension Leg Swelling Reason Comments Med Refill Reason Comments Follow-up Care Teams (unrecognized sec tion and content) Mechanical Spreader Operator Relationship Specialty Start Date End Date Elliot Starks MD [address] [place] [address] PCP - General Family Practice 11/26/15 Mechanical Spreader Operator Relationship Specialty Start Date End Date Elliot Starks MD [address] [place] [address] PCP - General Family Practice 11/26/15 Mechanical Spreader Operator Relationship Specialty Start Date End Date Elliot Starks MD [address] [place] [phone] PCP - General Family Medicine 11/26/15 Team Status: Inactive Member Role Status Dates Elliot Starks MD Attending Provider Active Mechanical Spreader Operator Relationship Specialty Start Date End Date Elliot Starks MD [address] [place] [address] [place] [address] PCP - General Family Medicine 05/11/23 Mechanical Spreader Operator Relationship Specialty Start Date End Date Elliot Starks MD [address] [place] [address] [place] [address] PCP - General Family Medicine 05/11/23 Mechanical Spreader Operator Relationship Specialty Start Date End Date Elliot Starks MD [address] [place] [address] [place] [address] PCP - General Family Medicine 05/11/23 Mechanical Spreader Operator Relationship Specialty Start Date End Date Elliot Starks MD [address] [place] [address] [place] [address] PCP - General Family Medicine 05/11/23 Mechanical Spreader Operator Relationship Specialty Start Date End Date Elliot Starks MD [address] [place] [address] [place] [address] PCP - General Family Medicine 05/11/23 Mechanical Spreader Operator Relationship Specialty Start Date End Date Elliot Starks MD [address] [place] [address] [place] [address] PCP - General Family Medicine 05/11/23 Mechanical Spreader Operator Relationship Specialty Start Date End Date Elliot Starks MD [address] [place] [address] PCP - General Family Medicine 05/11/23 Mechanical Spreader Operator Relationship Specialty Start Date End Date Elliot Starks MD [address] [place] [address], [place] [address] PCP - General Family Medicine 05/11/23 Mechanical Spreader Operator Relationship Specialty Start Date End Date Elliot Starks MD [address] [place] [address], [place] [phone] PCP - General Family Medicine 11/26/15 Team [...] May 09, 2024 End: May 09, 2024 Mechanical Spreader Operator Relationship Specialty Start Date End Date Elliot Starks MD [address] [place] [address], [place] [id number] PCP - General 03/17/17 Mechanical Spreader Operator Relationship Specialty Start Date End Date Elliot Starks MD [address] [place] [address], [place] [id number] PCP - General 07/15/23 Mechanical Spreader Operator Relationship Specialty Start Date End Date Elliot Starks MD [address] [place] [address] PCP - General 03/17/17 Mechanical Spreader Operator Relationship Specialty Start Date End Date Elliot Starks MD [address] [facility] [place] [address] PCP - General 03/17/17 Mechanical Spreader Operator Relationship Specialty Start Date End Date Elliot Starks MD [address] [facility] [place] [address] PCP - General 07/15/23 Mechanical Spreader Operator Relationship Specialty Start Date End Date Elliot Starks MD [address] [place] [address] PCP - General 07/15/23 Mechanical Spreader Operator Relationship Specialty Start Date End Date Elliot Starks MD [address] [place] [address] PCP - General 07/15/23 Team Status: Active Member Role Status Dates Elliot Starks MD Primary Care Provide cristian, Attending Provider Active Start: May 11, 2024 Team Status: Inactive Member Role Status Dates Elliot Starks MD Primary Care Provider Active Start: June 21, 2024 End: June 21, 2024 Chinedu Farley DO Attending Provider Active Sta rt: June 21, 2024 End: June 21, 2024 Mechanical Spreader Operator Relationship Specialty Start Date End Date Elliot Starks MD [address] [facility], [place] [id number] PCP - General Family Medicine 05/11/23 Mechanical Spreader Operator Relationship Specialty Start Date End Date Elliot Starks MD [address] [facility], [place] [id number] PCP - General Family Medicine 05/11/23 Goals [...] Field RN) 0607 (Given - Provider: Aidee Field, RN)1511 (Given - Provider: Dolly Liao RN)1845 [...] on Thu07/07/23 at 2145, Until Discontinued, Post-op/Post-Proc 2102 ($$New Bag$$ - Provider: Aidee Field RN)2133 [...] on Thu07/07/23 at 1700, Until Discontinued, Post-op/Post-Proc 1817 (Given - Provider: Marcella Lozano RN) 903 [...] Post-op/Post-Proc 0009 ($$New Bag$$ - Provider: Aidee iFeld, RICARDO)0109 (Stopped - Provider: Aidee Field RN) Continuous Medication Order 07/06/2023 07/07/2023 2023 Lactated ringers IV solution (CANCELED) Intravenous, at 75 mL/hr, CONTINUOUS, Starting on Thu07/07/23 at 1015, Until Thu07/07/23 at 1609, Pre-op/Pre-Proc 1043 ($$New Bag$$ - Provider: Chelsea Bledsoe RN)1514 ($$New Bag$$ - Provider: Damián Saenz APRN-QUALITY ASSURANCE SUPERVISOR BODY)1647 (Stopped - Provider: Aidee Field RN) Sodium chloride 0.9% IV solution Intravenous, at 75 mL/hr, CONTINUOUS, Starting on Thu07/07/23 at 1645, Until Thu07/08/23 at 1920, Convert IV to PRN adapter post op day 1 if adequate oral intake, Post-op/Post-Proc 1647 ($$New Bag$$ - Provider: Marcella Lozano RN)2200 (Rate/Dose Verify - Provider: Aidee Field RN) 0208 (Rate/Dose Verify - Provider: Aidee Field, RICARDO)0633 (Rate/Dose Verify - Provider: Aidee Field RN) [...] 2 g, Intravenous, Administer over 15 Minutes, TREE MARKER TO PROCEDURE, 1 dose, Starting on Thu07/07/23 at 1003, Until Thu07/07/23 at 1409, Other, Pre-operative antibiotic, Pre-op/Pre-Proc 1354 (Given - Provider: Melchor Holcomb [facility]N-[facility]) HYDROmorphone (DILAUDID) injection 0.5 mg 0.5 mg, [...] 10mg PO Q12H for 3 days, Post-op/Post-Proc 1645 (Given - Provider: Marcella Lozano RN)2102 (Given [...] BE BASED ON THE PRIMARY CLINICAL RECORDS. [email or web address] provides no warranty or guarantee of the accuracy or completeness of information in this document.
[2024-07-18 07:42] LABS: Estimated GFR (African America 52 (>=60 mL/min/1.73m^2); Estimated GFR (Non-African Ame 43 (>=60 mL/min/1.73m^2)
== END 2024-07-18 07:25 | disposition home or self-care (01) ==
LOC: LAB 07:24
PROVIDERS: PCP Family Medicine; Visit Provider Urology
DX: R31.9 Hematuria, unspecified (principal); N20.1 Calculus of ureter
CPT/HCPCS: 36415; 74178; 82565; Q9967

== ENCOUNTER 2024-07-27 06:42 | Outpatient (OUT) | payer MEDICARE, SELFPAY ==
--- OUTSIDE RECORDS SUMMARY | 2024-07-27 06:45 | XMS_ITS | CCD ---
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 Name Role Phone PHYSICIAN, DEFAULT Unavailable Unavailable [...] Referring Unavailable ELLIOT STARKS Primary Care Unavailable DNONA DIAZ Attending Unavailable ELLIOT STARKS Referring Unavailable ELLIOT STARKS Primary Care Unavailable MIKO VASQUEZ Attending Unavailable ELLIOT STARKS Referring Unavailable ELLIOT STARKS Primary Care Unavailable ANDREW CHOI Referring Unavailable ELLIOT STARKS Primary Care Unavailable Agusto VILLEGAS, Daisy Bennettas Attending Unavailable Gikiaitis , Andrius Vytautas Attending Unavailable Giedraitis , Andrius Vytdannielle Attending Unavailable Agusto VILLEGAS, Andrius Vytautas Attending Unavailable Giclaudy VILLEGAS, Andrius Vytautas Attending Unavailable Starks , Elliot Nayak Primary Care Provider [phone] Raudel VILLEGAS, Elliot Nayak Primary Care Provider [phone] Alfreda Miller Attending Unavailable Jacqui, Maria E [...] Referring Unavailable STARKS, ELLIOT Primary Care Unavailable AMARI, PAULA Attending Unavailable AMARI, PAULA Referring Unavailable SELF, SELF Referring Unavailable AMARI, PAULA Attending Unavailable STARKS, ELLIOT Primary Care Unavailable MIKO OHARA Attending Unavailable MIKO OHARA Referring Unavailable STARKS, ELLIOT Primary Care Unavailable SELF, SELF Referring Unavailable MIKO OHARA Attending Unavailable STARKS, ELLIOT Primary Care Unavailable BROCWELL, DIVINE M Referring Unavailable STARKS, ELLIOT Primary Care Unavailable BROCWELL, DIVINE M Attending Unavailable Allergies Allergy Classification Reported Allergen(s) Allergy Type Date of Onset Reaction(s) Facility (20 sources) Acetaminophen / HYDROcodone; Translations: [HYDROCODONE-ACET AMINOPHEN] Drug Allergy 03-19-20 17 Unknown, Itching, Nausea Only, Rash [facility] (20 sources) Baclofen; Translations: [baclofen] Drug Allergy 03-19-20 17 Unknown, Itching, Rash [facility] (20 sources) Codeine; Translations: [codeine] Drug Allergy 08-09-19 09 Unknown, Itching, Rash [facility] (20 sources) levoFLOXacin; Translations: [levofloxacin] Drug Allergy 03-19-20 17 Unknown, Itching, Nausea Only, Rash [facility] (20 sources) Morphine; Translations: [morphine] Drug Allergy 08-09-19 09 [facility] (16 sources) oxyCODONE Drug Allergy 12-03-19 16 [facility] (8 sources) Penicillins; Translations: [PENICILLINS] Drug Allergy 12-03-19 16 Hives, [facility] (1 source) Baclofen Drug Allergy [facility] (1 source) Codeine Drug Allergy [facility] (14 sources) levoFLOXacin; Translations: [Levaquin] Drug Allergy Unknown [facility] (1 source) Morphine Drug Allergy 05-04-18 94 [facility] (1 source) oxyCODONE Drug Allergy 05-04-19 05 [facility] (1 source) Penicillins Drug allergy (disorder) 05-04-18 93 [facility] (3 sources) traMADol; Translations: [Ultram] Drug Allergy [facility] (11 sources) Codeine Drug Allergy Unknown [employer] Other (17 sources) Penicillin; Translations: [penicillin] Drug Allergy Unknown [facility] (20 sources) traMADol; Translations: [tramadol] Drug Allergy 07-13-19 20 Itching [facility] (20 sources) zolpidem; Translations: [zolpidem] Drug Allergy 07-04-19 23 Unknown, Hives [facility] (11 sources) Penicillins Drug Allergy 12-03-19 16 [facility] (1 source) Non-steroidal anti-inflammatory agent Drug allergy 02-02-20 13 Unknown [employer] Other (16 sources) sulfADIAZINE; Translations: [SULFADIAZINE] Drug Allergy 07-04-19 23 Comment:Sulfa [facility] (1 source) Ultram *ANALGESICS - OPIOID* Propensity to adverse reactions Unknown [facility] Other (1 source) Vioxx *ANALGESICS - ANTI-INFLAMMATORY * Propensity to adverse reactions Unknown [facility] Other (1 source) Penicillin G Benzathine & Proc Drug allergy Unknown [facility] Other (1 source) Morphine Sulfate (Concentrate) *ANALGESICS - OPIOI Propensity to adverse reactions Unknown [facility] [employer] Other (1 source) Allergies Reconciled Propensity to adverse reactions Unknown [facility] Other (1 source) patient allergy list reviewed by nurse or physicia Propensity to adverse reactions 02-02-20 13 Comment:Done [facility] [employer] Other (1 source) Vicodin *ANALGESICS - OPIOID* Propensity to adverse reactions Unknown [employer] Other (5 sources) calcitonin Drug allergy 10-28-19 24 Unknown, [facility] (12 sources) Penicillins Propensity to adverse reactions to drug 05-14-19 24 [facility] (1 source) Acetaminophen / HYDROcodone; Translations: [Vicodin] Drug Allergy [facility] (1 source) Adhesive Tape; Translations: [Tape] Propensity to adverse reactions (disorder) [facility] (10 sources) Latex Propensity to adverse reactions to drug 06-19-19 24 [facility] (10 sources) *Adhesive Tape Propensity to adverse reactions 07-04-19 23 [facility] (8 sources) Cephalexin Drug Allergy 07-09-19 24 Nausea Only, Dry Mouth, Flushing [facility] (11 sources) Adhesive agent; Translations: [ADHESIVE] Propensity to adverse reactions to drug (disorder) 07-04-19 23 [facility] (15 sources) rofecoxib; Translations: [ROFECOXIB] Drug Allergy 07-04-19 23 [facility] (11 sources) PENICILLIN G BENZATHIN,PROCAIN ; Translations: [PENICILLIN G BENZATHIN,PROCAIN ] Propensity to adverse reactions to drug (disorder) 07-04-19 23 [facility] (4 sources) Acetaminophen Drug Allergy 10-28-19 24 [facility] (4 sources) HYDROcodone Drug Allergy 10-28-19 24 [facility] (4 sources) Penicillin G Benzathine Allergy to substance 10-28-19 24 [facility] (1 source) Morphine; Translations: [Morphine Sulfate] Drug Allergy [facility] (1 source) zolpidem; Translations: [Ambien] Drug Allergy [facility] Repository Medications Current Medications Medication Drug [...] ills(s) 0 Start Date: 02/11/23 Status: Ordered Repeat number: 1 take 2 tablets by [facility] every twelve hours apixaban 2.5 MG tablet Take 2 tablets by mouth every 12 hours. Active apixaban 2.5 MG tablet Take by mouth every 12 hours. 0 Active Comment on above: Take 5 mg by mouth t wice daily. ascorbic acid 226 mg / beta carotene 91070 unt / cuprous oxide 0.8 mg / dl-alpha tocopheryl acetate 200 unt / zinc oxide 34.8 mg oral capsule (3 sources) Vitamin C Start: 10-28-2023 take 1 capsule by mouth in the morning vitamins A,C,T-mkrc-bxqfmn (ICAPS AREDS) 4,296 mcg-226 mg-90 mg capsule [...] Refills(s) 0 Start Date: 06/22/24 Status: Ordered Repeat number: 1 Start: 2023 End: 2023 take 75 mg [...] MG TABLET Start Date: 05/27/23 Status: Ordered Repeat number: 1 Start: 05-27-2023 BACLOFEN 10 MG TABLET BACLOFEN [...] 1 month, then 2x/week for maintainence, [facility]/pharmacy #[id number], 165, cm, 02/11/23 10:41:00 EDT, Height/Length Dosing, 77.5, kg, 02/11/23 10:41:00 EDT, Weight Dosing 02/11/2023 Active Start: 02-11-2023 Estrace 0.1 mg /g Cream See Instructions, 42.5 gm, Refill(s) 3, apply pea size amount to urethra/inner vagina 3x/week x 1 month, then 2x/week for maintainence, [facility]/pharmacy #[id number], 165, cm, 02/11/23 10:41:00 EDT, Height/Length Dosing, 77.5, kg, 02/11/23 10:41:00 EDT, Weight Dosing Start Date: 02/11/23 Status: Ordered flecainide acetate 50 mg oral tablet (20 sources) Antiarrhythmic Start: 06-22-2024 flecainide 50 mg Tab 50 mg = 1 tab(s), Refills(s) 0 Start Date: 06/22/24 Status: Ordered Repeat number: 1 Start: 07-15-2023 End: 08-14-2023 take 1 tablet [...] Thiazide Diuretic Start: 2022 End: 2023 take 1 mg by mouth once daily hydrochlorothiazide 25 mg Tab mg tab(s), Oral, Daily, Refills(s) 0 Start Date: 02/11/23 Status: Ordered Repeat number: 1 hydroCHLOROthiazide 25 mg / losartan potassium 100 [...] (s) 0 Start Date: 02/11/23 Status: Ordered Repeat number: 1 take 1 tablet by mirza th once [...] # 30 tab(s), Refills(s) 11, Pharmacy: [facility]/pharmacy #[id number], 165, cm, 02/11/23 10:41:00 EDT, Height/Length Dosing, 77.5, kg, 02/11/23 10:41:00 EDT, Weight Dosing Start Date: 02/11/23 Status: Ordered Multiple Vitamin (multivitamin) capsule (8 sources) take 1 capsule by mouth once daily Multiple Vitamin (multivitamin) capsule Take 1 capsule by mouth daily. Active Aleve (14 sources) Nonsteroidal Anti-inflammatory Drug Start: 06-22-19 Aleve Refills(s) 0 Start Date: 06/22/24 Status: Ordered Repeat number: 1 Start: 06-22-2024 Aleve Refills( s) 0 Start Date: 06/22/24 Status: Ordered Start: 02-11-2023 take 1 mg by mouth e very twelve hours Aleve mg, Oral, q12hr, Refills(s) 0 Start Date: 02/11/23 Status: Ordered naproxen sodium (ALEVE) 220 mg tablet Take 1 tablet (220 mg total) by mouth as needed for pain. Active Neuveria Vitamin OTC (3 sources) Start: 06-22-2024 Neuveria Vitam in OTC Neuveria Vitamin OTC Start Date: 06/22/24 Status: Ordered Repeat number: 1 Start: 06-22-2024 Neuveria Vitam in OTC Neuveria Vitamin OTC Start Date: 06/22/24 [...] Refills(s) 0 Start Date: 06/22/24 Status: Ordered Repeat number: 1 Start: 04-30-2024 take 1 capsule by [facility] once daily Omeprazole 40 mg capsule,delayed release(DR/EC) [...] daily. am Active take 1 capsule by [facility] in the morning omeprazole (PriLOSEC) 20 mg capsule Take 1 capsule (20 mg total) by mouth in the morning. Active Omeprazole (PRIL OSEC) 40 mg capsule Take 20 mg by mouth twice daily. 0 Active take 1 capsule by [facility] once daily omeprazole [address] Take 1 capsule by mouth daily. 0 Active Omeprazole 40 mg TAKE 2 CAPSULES DAILY Active take 1 capsule by [facility] once daily Omeprazole 40 MG 1 capsule [...] Active Start: 08-11-2022 take 1 tablet by [facility] every twelve hours Bactrim DS 800-160 MG [...] Refills(s) 0 Start Date: 06/22/24 Status: Ordered Repeat number: 1 Comment on above: Take 25 mg by mouth as needed. traZODone hydrochloride 50 mg oral tablet (5 sources) Serotonin Reuptake Inhibitor Start: 06-22-2024 traZODONE 50 mg Tab 50 mg = 1 tab(s), Refills(s) 0 Start Date: 06/22/24 Status: Ordered Repeat number: 1 Start: 05-09-2024 End: 06-14-2024 take 1 tablet [...] Weight Dosing Start Date: 05/27/23 Status: Ordered Quantity: 90.0 Unit: tab(s) Repeat number: 4 Indication: Mixed incontinence Trospium Chlorid e Active Vitamins A,C,K-Pfnj-Yhxzpk (Preservision Areds) 4,296 mcg-226 mg-90 mg capsule (4 sources) Start: 10-28-2023 take 1 capsule by mouth twice daily Vitamins A,C,U-Pazu-Paujki (Preservision Areds) 4,296 mcg-226 mg-90 mg capsule Active 1 CAP PO Twice daily October 27, 2023 11:00pm Start: 10-28-2023 take 1 capsule by mo [facility] twice daily Vitamins A,C,U-Dlhr-Ocfgwn (Preservision Areds) 4,296 mcg-226 mg-90 mg capsule [...] Start: 07-07-2023 take 2 tablets by [facility] every four hours as needed Acetaminophen [...] Until Discontinued, Post-op/Post-Proc cycloSPORINE Opth 0.05% Emul (3 sources) Start: 06-22-2024 cycloSPORINE Opth 0.05% Emul 1 drop(s), Refill(s) 0 Start Date: 06/22/24 Status: Ordered Repeat number: 1 Start: 06-22-2024 cycloSPORINE O pth 0.05% Emul 1 drop(s), Refill(s) 0 Start [...] Post-op/Post-Proc docusate sodium 50 mg / sennosides, shelter 8.6 mg oral tablet (1 source) Start: [...] (20 sources) Start: 06-22-2024 Potassium Chlo ride (Ckj-Jbsq-Tfl 10) 10 mEq oral tablet, extended release 10 mEq = 1 tab(s), Refills(s) 0 Start Date: 06/22/24 Status: Ordered Repeat number: 1 Start: 06-22-2024 Potassium Chlo ride (Abt-Xxpo-Ddu 10) 10 mEq oral tablet, extended release [...] to other specified organisms Episodic Allergic reactions (4 sources) Eczema 02-05-2023 Episodic Anal and rectal conditions (4 sources) Disorder of rectum 02-05-2023 Episodic Anxiety [...] 04-29-2022 Chronic Genitourinary symptoms and ill-defined conditions (6 sources) Mixed incontinence; Translations: [Incontinence] Onset: 02-11-2023 [...] 05-06-2023 Chronic Other aftercare (1 source) Other nursing home (current) drug therapy; Translations: [OTH CORRECTION CURRENT DRUG THERAPY] Onset: 06-11-2022 Episodic Other aftercare (2 sources) Long-term current use of anticoagulant; Translations: [intermediate (current) use of anticoagulants] Onset: 02-11-2023 Episodic [...] of mental health and substance abuse codes (7 sources) Personal history of nicotine dependence; Translations: [...] W/AND (SUSP) EXPOS COVID-19] Onset: 06-11-2022 Unclassified (4 sources) Drug therapy finding 02-11-2023 Unclassified (1 source) Irregular Heart Rate Onset: 07-15-2023 Urinary tract infections (20 sources) Urinary tract infection, site not specified; Translations: [Acute urinary tract infection] Onset: 06-11-2022 Episodic Viral infection (12 sources) Disease caused by 2019-nCoV; Translations: [COVID-19] Past or Other Problems Problem Classification Problem Date Documented Date Episodic/Chronic Cardiac dysrhythmias (10 sources) Palpitations; Translations: [Palpitations] Onset: 06-30-2018 08-16-2021 Episodic Coronary atherosclerosis and other heart disease (13 sources) Atherosclerotic heart disease of [place] coronary artery without angina pectoris; Translations: [Coronary [...] Locations R1: This test was performed at: [facility], [address] [place] [address], [address] , , Normal [facility] Comment on above: Performed By: #### 2 [id number] #### [facility] [address] [place] [address] Ambulatory Visit Summaryon 0 06-22-2024 Ambulatory Visit [...] 40 mg Cap-DR) potassium chloride (Potassium Chloride (Ajd-Fmct-Cay 10) 10 mEq oral tablet, extended release) [...] Follow-Up Appointments Thursday 10:30 AM EDT Where: [facility] Thursday 8:15 AM EDT Where: [facility] Medications What How Much [...] 1 Capsules Unchanged potassium chloride (Potassium Chloride (Wrc-Yjpx-Uqb 10) 10 mEq oral tablet, extended release) [...] for choosing us for your care. Normal [facility] URINALYSISOrdered By: Tien Lyon on 06-22-2024 [...] that meet specific criteria set forth by [facility]. Epithelial cells.squamous Auto (Urine sed) [...] Desc Random Urine (06/22/24 1:48 PM) Normal [facility] UA Auto SS Urinalysis with Microon 06-04 Bacteria Auto Ql (U) 1+ /HPF Abnormal Trace Fish er [facility] Comment on above: Performed By: #### 4 [id number] #### [facility] [address] [place] [address] Bilirubin Ql (U) Negative Normal Negative [facility] Comment on above: Performed By: #### 4 [id number] #### [facility] [address] [place] [address] Clarity (U) Clear Normal Clear [facility] Comment on above: Performed By: #### 4 [id number] #### [facility] [address] [place] [address] Color (U) Light-Yellow Normal Yellow [facility] Comment on above: Result Comment: Micr oscopic readings are only performed on those samples that meet specific criteria set forth by [facility]. Performed By: #### 4 [id number] #### [facility] [address] [place] [address] Epithelial cells.squamous Auto (Urine sed) [#/Area] 0-2 Invalid Interpretation Code [facility] Comment on above: Performed By: #### 4 [id number] #### [facility] [address] [place] [address] Glucose Ql (U) Negative Normal Negative [facility] Comment on above: Performed By: #### 4 [id number] #### [facility] [address] [place] [address] Hemoglobin Auto test strip (U) [Mass/Vol] 2+ Abnormal Negative [facility] Comment on above: Performed By: #### 4 [id number] #### [facility] [address] [place] [address] Ketones Auto test strip Ql (U) Negative Normal Negative [facility] Comment on above: Performed By: #### 4 [id number] #### [facility] [address] [place] [address] Leukocyte esterase Auto test strip Ql (U) 250 Felipe/uL Abnormal Negative [facility] Comment on above: Performed By: #### 4 [id number] #### [facility] [address] [place] [address] Mucus Auto Ql (U) Negative Normal Negative [facility] Comment on above: Performed By: #### 4 [id number] #### [facility] [address] [place] [address] Nitrite Auto test strip Ql (U) Negative Normal Negative [facility] Comment on above: Performed By: #### 4 [id number] #### [facility] [address] [place] [address] pH (U) 6.0 [pH] Invalid Interpretation Code 5.0-9.0 [facility] Comment on above: Performed By: #### 4 [id number] #### [facility] [address] [place] [address] Protein Ql (U) Negative Normal Negative [facility] Comment on above: Performed By: #### 4 [id number] #### [facility] [address] [place] [address] RBC Ql (U) 4-20 Abnormal 0-3 [facility] Comment on above: Performed By: #### 4 [id number] #### [facility] [address] [place] [address] Specific gravity (U) [Rel density] 1.013 Invalid Interpretation Code 1.005-1.030 [facility] Comment on above: Performed By: #### 4 [id number] #### [facility] [address] [place] [address] Urobilinogen (U) [Mass/Vol] Negative Normal Negative [facility] Comment on above: Performed By: #### 4 [id number] #### [facility] [address] [place] [address] WBC Auto (Urine sed) [#/Area] 31-75 Abnormal 0-5 [facility] Comment on above: Performed By: #### 4 [id number] #### [facility] [address] [place] [address] Type of Urine collection method Random Urine Normal [facility] Comment on above: Performed By: #### 4 [id number] #### [facility] [address] [place] [address] Urology Office/Clinic Noteon 06-22-2024 Urology Office/Clinic Note [...] well nourished, in no acute distress. Assessment/Plan [facility] patient, last seen in-office 05/27/23 78 [...] pending completion of cystoscopy w/ KML Ordered: 22000 Measure Post Void residual urine and/or bladder [...] Urnls Dip Stick Auto w/o Microscopy POC 88996 2. Frequent UTI (N39.0: Urinary tract infection, [...] UTIs for (more content not included)... 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 MAMM SCREENING BILATERAL W CAD MAMM [...] 2:57 PM 2 a FU ACR Normal [facility] Shane 09-17-2023 CNPN Telephone (HEMASA) TCBETTIE MONTOYA ([id number]) 1945 F Date Time Provider Department 09/17/23 MATT ADAMS During your visit today, we recorded the following information about you: Matt Adams RN 09/17/2023 10:20 AM Signed Pt called to request yearly Mammogram order I have pended order as previously completed Pt requests to fax to Nori Lema [phone] BR/: please review and sign if agreeable [...] Date Reviewed: 03/16/2019 Reviewed by: Divine Self (Karissa)KARISSA - Fully Assessed Reason for Visit: Yearly Exam With Mammogram [188] Primary Visit Diagnosis:Encounter for screening mammogram for malignant neoplasm of breast [Z12.31] Order(s):[facility] SCREENING W YAW [[id number]] Order #: [id number] FUTURE Prescriptions as of 09/17/2023 - lisinopril [...] Status:Closed by ANDREW CHOI on 09/17/23 Normal [facility] CBC AND AUTO DIFFon 07-15-19 ABSOLUTE BASOPHIL 0.1 X10E9/L Normal 0.0-0.2 [facility] Comment on above: Performed By: #### C BCA, 16683-3, PINR, 21221-1, CMP, 29084-4, 90770-2, THYR, 93570-3 #### [facility] ([id number]) [address] [place] [address] ABSOLUTE NEUTROPHIL 2.8 X10E9/L Normal 1.5-6.6 [facility] Comment on above: Performed By: #### C BCA, 30855-8, PINR, 75321-3, CMP, 82888-0, 65677-8, THYR, 02363-0 #### [facility] ([id number]) [address] [place] [address] Basophils/100 WBC (Bld) 1.3 % Normal [facility] Comment on above: Performed By: #### C BCA, 60805-1, PINR, 59788-5, CMP, 22284-1, 39086-9, THYR, 08919-2 #### [facility] ([id number]) [address] [place] [address] Eosinophils (Bld) [#/Vol] 0.7 10*3/uL High 0.0-0.4 [facility] Comment on above: Performed By: #### C BCA, 67920-4, PINR, 63465-0, CMP, 91506-9, 67920-9, THYR, 61948-2 #### [facility] ([id number]) [address] [place] [address] Eosinophils/100 WBC (Bld) 11.9 % Normal [facility] Comment on above: Performed By: #### C BCA, 83550-3, PINR, 54915-8, CMP, 49150-9, 67739-9, THYR, 68683-9 #### [facility] ([id number]) [address] [place] [address] Erythrocyte distribution width (RBC) [Ratio] 13.5 % Normal 11.5-15.0 [facility] Comment on above: Performed By: #### C BCA, 60245-1, PINR, 04829-7, CMP, 65830-1, 39753-5, THYR, 57914-9 #### [facility] ([id number]) [address] [place] [address] Hematocrit (Bld) [Volume fraction] 38.5 % Normal 35-47 [facility] Comment on above: Performed By: #### C BCA, 97830-2, PINR, 22662-2, CMP, 34340-7, 55413-8, THYR, 48438-5 #### [facility] ([id number]) [address] [place] [address] Hemoglobin (Bld) [Mass/Vol] 13.3 g/dL Normal 11.7-15.5 [facility] Comment on above: Performed By: #### C BCA, 54631-4, PINR, 29432-0, CMP, 61342-6, 05759-3, THYR, 77951-4 #### [facility] ([id number]) [address] [place] [address] Lymphocytes (Bld) [#/Vol] 1.8 10*3/uL Normal 1.0-3.5 [facility] Comment on above: Performed By: #### C BCA, 59642-2, PINR, 18709-0, CMP, 24036-7, 19286-6, THYR, 98644-9 #### [facility] ([id number]) [address] [place] [address] Lymphocytes/100 WBC (Bld) 29.4 % Normal [facility] Comment on above: Performed By: #### C BCA, 39700-9, PINR, 12756-4, CMP, 76663-5, 05297-1, THYR, 10280-1 #### [facility] ([id number]) [address] [place] [address] MCH (RBC) [Entitic mass] 32.8 pg Normal 27-34 [facility] Comment on above: Performed By: #### C BCA, 84341-0, PINR, 06419-8, CMP, 87365-2, 59965-4, THYR, 47709-0 #### [facility] ([id number]) [address] [place] [address] MCHC (RBC) [Mass/Vol] 34.4 g/dL Normal 32-36 [facility] Comment on above: Performed By: #### C BCA, 66912-6, PINR, 10237-9, CMP, 08007-9, 96306-3, THYR, 99747-3 #### [facility] ([id number]) [address] [place] [address], [place] [address] MCV (RBC) [Entitic vol] 95 fL Normal 80-100 [facility] Comment on above: Performed By: #### C BCA, 34275-0, PINR, 54001-4, CMP, 26910-2, 16776-9, THYR, 28341-0 #### [facility] ([id number]) [address] [place] [address] 98001 Monocytes (Bld) [#/Vol] 0.8 10*3/uL Normal 0-0.9 [facility] Comment on above: Performed By: #### C BCA, 05668-8, PINR, 47427-5, CMP, 22906-6, 90835-7, THYR, 60197-8 #### [facility] ([id number]) [address] [place] [address] 57836 Monocytes/100 WBC (Bld) 13.2 % Normal [facility] Comment on above: Performed By: #### C BCA, 09629-5, PINR, 91297-4, CMP, 61330-5, 43606-6, THYR, 33732-1 #### [facility] ([id number]) [address] [place] [address] 80121 Neutrophils/100 WBC (Bld) 44.2 % Normal [facility] Comment on above: Performed By: #### C BCA, 80885-3, PINR, 14279-2, CMP, 19410-9, 00306-5, THYR, 58601-7 #### [facility] ([id number]) [address] [place] [address] 54256 Platelet mean volume (Bld) [Entitic vol] 6.9 fL Low 7-12 [facility] Comment on above: Performed By: #### C BCA, 70236-5, PINR, 95425-2, CMP, 28118-3, 67125-1, THYR, 48351-2 #### [facility] ([id number]) [address] [place] [address] 66306 Platelets (Bld) [#/Vol] 340 10*3/uL Normal 150-450 [facility] Comment on above: Performed By: #### C BCA, 46264-0, PINR, 69098-6, CMP, 36438-3, 30270-7, THYR, 75335-1 #### [facility] ([id number]) [address] [place] [address] 45663 RBC COUNT 4.05 X10E12/L Normal 3.80-5.20 [facility] Comment on above: Performed By: #### C BCA, 30897-4, PINR, 95335-3, CMP, 83158-5, 49509-5, THYR, 04524-1 #### [facility] ([id number]) [address] [place] [address] 11840 WBC (Bld) [#/Vol] 6.2 10*3/uL Normal 4.0-11.0 [facility] Comment on above: Performed By: #### C BCA, 59443-9, PINR, 99574-4, CMP, 44034-4, 61516-7, THYR, 80040-2 #### [facility] ([id number]) [address] [place] [address] 45810 COMPREHENSIVE METABOLIC PANE Roland 07-15-2023 Albumin [Mass/Vol] 3.5 g/dL Normal 3.2-5.3 [facility] Comment on above: Performed By: #### C BCA, 69802-1, PINR, 16295-3, CMP, 50600-4, 35986-9, THYR, 59480-8 #### [facility] ([id number]) [address] [place] [address] 55581 ALP [Catalytic activity/Vol] 52 U/L Normal 39-130 [facility] Comment on above: Performed By: #### C BCA, 29283-6, PINR, 08292-7, CMP, 08822-2, 33803-4, THYR, 40369-9 #### [facility] ([id number]) [address] [place] [address] 77416 ALT [Catalytic activity/Vol] 13 U/L Normal 0-31 [facility] Comment on above: Performed By: #### C BCA, 14358-7, PINR, 55026-1, CMP, 68857-2, 46285-0, THYR, 41062-1 #### [facility] ([id number]) [address] [place] [address] 91777 Anion gap [Moles/Vol] 10 mmol/L Normal 5-15 [facility] Comment on above: Performed By: #### C BCA, 39531-6, PINR, 52084-1, CMP, 93282-2, 75615-6, THYR, 03754-3 #### [facility] ([id number]) [address] [place] [address] 15357 AST [Catalytic activity/Vol] 24 U/L Normal 0-41 [facility] Comment on above: Performed By: #### C BCA, 24750-7, PINR, 01617-2, CMP, 52922-4, 45542-1, THYR, 53653-7 #### [facility] ([id number]) [address] [place] [address] [place] [address] Bilirubin [Mass/Vol] 0.7 mg/dL Normal 0.3-1.2 [facility] Comment on above: Performed By: #### C BCA, 04374-3, PINR, 70776-1, CMP, 85264-0, 37568-5, THYR, 05781-1 #### [facility] ([id number]) [address] [place] [address] [place] [address] Calcium [Mass/Vol] 9.4 mg/dL Normal 8.5-10.5 [facility] Comment on above: Performed By: #### C BCA, 84995-2, PINR, 35066-7, CMP, 10810-4, 78175-3, THYR, 87772-8 #### [facility] ([id number]) [address] [place] [address] 71757 Chloride [Moles/Vol] 102 mmol/L Normal 98-109 [facility] Comment on above: Performed By: #### C BCA, 33198-1, PINR, 94148-3, CMP, 57086-6, 47457-6, THYR, 46484-2 #### [facility] ([id number]) [address] [place] [address] 70197 CO2 [Moles/Vol] 27 mmol/L Normal 22-32 [facility] Comment on above: Performed By: #### C BCA, 09934-0, PINR, 95581-1, CMP, 88162-6, 88925-3, THYR, 05389-6 #### [facility] ([id number]) [address] [place] [address] 88769 Creatinine [Mass/Vol] 1.21 mg/dL High 0.40-1.00 [facility] Comment on above: Result Comment: METH OD TRACEABLE TO IDMS STANDARD Performed By: #### C BCA, 12542-8, PINR, 37295-4, CMP, 14006-2, 48715-0, THYR, 17582-8 #### [facility] ([id number]) [address] [place] [address] 01893 GFR/1.73 sq M.predicted among non-blacks MDRD (S/P/Bld) [Vol rate/Area] 46 mL/min/{1.73_m2} Low >59 [facility] Comment on above: Result Comment: Reported eGFR is based on the CKD-EPI 2020 equation that does not use a race coefficient. Performed By: #### C BCA, 58103-1, PINR, 97296-3, CMP, 34396-7, 69897-6, THYR, 24474-0 #### [facility] ([id number]) [address] [place] [address], [place] [address] Glucose [Mass/Vol] 120 mg/dL High 65-99 [facility] Comment on above: Performed By: #### C BCA, 87086-2, PINR, 74590-9, CMP, 80678-2, 70998-8, THYR, 94030-7 #### [facility] ([id number]) [address] [place] [address], [place] [address] Potassium [Moles/Vol] 4.0 mmol/L Normal 3.5-5.0 [facility] Comment on above: Performed By: #### C BCA, 57315-7, PINR, 19890-6, CMP, 21458-1, 64462-8, THYR, 22125-0 #### [facility] ([id number]) [address] [place] [address] 70801 Protein [Mass/Vol] 6.8 g/dL Normal 6.0-8.0 [facility] Comment on above: Performed By: #### C BCA, 43022-6, PINR, 93300-8, CMP, 70186-4, 57192-0, THYR, 38801-2 #### [facility] ([id number]) [address] [place] [address] [place] [address] Sodium [Moles/Vol] 139 mmol/L Normal 134-146 [facility] Comment on above: Performed By: #### C BCA, 10449-7, PINR, 04320-2, CMP, 07974-5, 44467-2, THYR, 54971-9 #### [facility] ([id number]) [address] [place] [address] [place] [address] Urea nitrogen [Mass/Vol] 31 mg/dL High 5-27 [facility] Comment on above: Performed By: #### C BCA, 07164-9, PINR, 22545-9, CMP, 68893-6, 81424-2, THYR, 65968-7 #### [facility] ([id number]) [address] [place] [address] 41214 Fibrin D-dimer DDU (PPP) [Ma ss/Vol]on 07-15-2023 D DIMER 220 ng/mL DDU Normal <255 [facility] Comment on above: Result Comment: Results <255 ng/mL DDU: The presence of a VTE can safely be excluded with a negative D-Dimer result and Wells score. A negative result doesn't exclude the possibility of DIC. The test be repeated along with other diagnostic tests if the patient's symptoms persist or worsen. [email or web address] Performed By: #### C BCA, 83648-0, PINR, 23040-8, CMP, 54217-5, 94664-8, THYR, 96888-1 #### [facility] ([id number]) [address] [place] [address] 91938 MAGNESIUMon 07-15-2023 Magnesium [Mass/Vol] 1.8 mg/dL Normal 1.8-2.6 [facility] Comment on above: Performed By: #### C BCA, 98997-5, PINR, 51340-2, CMP, 89658-7, 45497-6, THYR, 09948-4 #### [facility] ([id number]) [address] [place] [address] 82358 Natriuretic peptide B [Mass/ Vol]on 07-15-2023 Natriuretic peptide B (Bld) [Mass/Vol] 119 pg/mL High <100.0 [facility] Comment on above: Performed By: #### C BCA, 96738-0, PINR, 73878-9, CMP, 58217-2, 47272-6, THYR, 05178-2 #### [facility] ([id number]) [address] [place] [address] 24055 PROTIME AND INRon 07-15-2023 INR Coag (PPP) [Relative time] 1.8 {INR} High 0.8-1.1 [facility] Comment on above: Performed By: #### C BCA, 29931-0, PINR, 00074-6, CMP, 03900-1, 98461-0, THYR, 65881-3 #### [facility] ([id number]) [address] [place] [address] 58851 PT Coag (PPP) [Time] 20.8 s High 9.8-13.2 [facility] Comment on above: Result Comment: NEW REFERENCE RANGE Performed By: #### C BCA, 09809-8, PINR, 13750-9, CMP, 70033-1, 24955-1, THYR, 90177-6 #### [facility] ([id number]) [address] [place] [address] 89219 THYROID PROFILEon 07-15-2023 Free T4 [Mass/Vol] 1.25 ng/dL Normal 0.61-1.60 [facility] Comment on above: Performed By: #### C BCA, 69783-6, PINR, 17814-2, CMP, 35986-7, 25878-7, THYR, 65094-2 #### [facility] ([id number]) [address] [place] [address] 53230 TSH 1.69 uIU/mL Normal 0.49-4.67 [facility] Comment on above: Performed By: #### C BCA, 70639-1, PINR, 60197-9, CMP, 35537-7, 33595-2, THYR, 33244-8 #### [facility] ([id number]) [address] [place] [address] 82974 TROPONIN Ion 07-15-2023 Troponin I.cardiac [Mass/Vol] 0.01 ng/mL Normal 0.00-0.04 [facility] Comment on above: Performed By: #### C BCA, 59894-1, PINR, 46007-0, CMP, 76311-6, 56072-1, THYR, 11027-7 #### [facility] ([id number]) [address] [place] [address] XR CHEST 2 VWSon 07-15-2023 XR CHEST 2 VWS XR CHEST 2 VWS History: chest pressure Exam/Technique: PA and lateral chest Comparison: None. Findings: There is no evidence of active pulmonary or pleural disease. Cardiac and mediastinal contours are within normal limits. Left-sided surgical clips. Granulomatous changes. IMPRESSION: No active pulmonary disease. Finalized by Adrian Ervin MD on 07/15/2023 1:14 PM Normal [facility] aPTT Coag (PPP) [Time]on aPTT Coag (Bld) [Time] 36 s Normal 26-37 [facility] Comment on above: Result Comment: NEW REFERENCE RANGE Performed By: #### C BCA, 32013-9, PINR, 07519-5, CMP, 11620-1, 34520-7, THYR, 81634-0 #### [facility] ([id number]) [address] [place] [address] 91655 BASIC METABOLIC PANELon 03-0 Anion gap [Moles/Vol] 1 mmol/L MMOL/L [facility] Calcium [Mass/Vol] 8.7 mg/dL [facility] Chloride [Moles/Vol] 103 mmol/L [facility] Comment on above: Please note: Triglyc eride levels of 600mg/dL or higher may positively bias chloride results by approximately 2.1 mmol CO2 [Moles/Vol] 30 mmol/L [facility] Creatinine [Mass/Vol] 1.10 mg/dL [facility] GFR COMMENT Average GFR for 70+ years old = 75. [facility] Comment on above: Chronic Kidney disea se, GFR = <60. Kidney failure, GFR = <15. The GFR estimate is not adjusted for extreme body surface area or acute process, nor has it been validated for women or ethnic groups other than and . GFR/1.73 sq M.predicted among blacks MDRD (S/P/Bld) [Vol rate/Area] 62 mL/min/{1.73_m2} ml/min/1.73s q.m [facility] GFR/1.73 sq M.predicted among non-blacks MDRD (S/P/Bld) [Vol rate/Area] 51 mL/min/{1.73_m2} ml/min/1.73s q.m [facility] Glucose post fast [Mass/Vol] 141 mg/dL High [facility] Comment on above: NORMAL <100 mg/dL PREDIABETES 101-126 mg/dL DIABETES 126 mg/dL or higher Interpretation and review of laboratory results Abnormal [facility] Potassium [Moles/Vol] 3.8 mmol/L [facility] Sodium [Moles/Vol] 134 mmol/L Low [facility] Urea nitrogen [Mass/Vol] 30 mg/dL High [facility] CBC, EDIF, PLATELETon 2023 ABSOLUTE BASOPHIL COUNT 0.0 10*3/uL 0.0 - 0.2 10*3/uL [facility] Basophils/100 WBC (Bld) 0.3 % 0.0 - 2.0 % [facility] Differential cell count method Nom (Bld) AUTO DIFF % [facility] Eosinophils (Bld) [#/Vol] 0.0 10*3/uL 0.0 - 0.7 10*3/uL [facility] Eosinophils/100 WBC (Bld) 0.0 % 0.0 - 11.0 % [facility] Erythrocyte distribution width (RBC) [Ratio] 13.2 % 11.5 - 14.5 % [facility] Hematocrit (Bld) [Volume fraction] 33.6 % Low 36.0 - 48.0 % [facility] Hemoglobin (Bld) [Mass/Vol] 12.0 g/dL [facility] Interpretation and review of laboratory results Abnormal [facility] Lymphocytes (Bld) [#/Vol] 1.1 10*3/uL Low 1.2 - 3.4 10*3/uL [facility] Lymphocytes/100 WBC (Bld) 16.4 % Low 20.0 - 55.0 % [facility] MCH (RBC) [Entitic mass] 33.6 pg 26.0 - 35.0 PG [facility] MCHC (RBC) [Mass/Vol] 35.6 g/dL [facility] MCV (RBC) [Entitic vol] 94.2 fL [facility] Monocytes (Bld) [#/Vol] 0.3 10*3/uL 0.0 - 0.7 10*3/uL [facility] Monocytes/100 WBC (Bld) 4.3 % 0.0 - 10.0 % [facility] Neutrophils (Bld) [#/Vol] 5.2 10*3/uL 1.4 - 6.5 10*3/uL [facility] Neutrophils/100 WBC (Bld) 79.0 % High 37.0 - 75.0 % [facility] Platelet mean volume (Bld) [Entitic vol] 7.0 fL Low [facility] Platelets (Bld) [#/Vol] 226 10*3/uL 130 - 400 10*3/uL [facility] RBC (Bld) [#/Vol] 3.57 10*6/uL Low 4.0 - 5.4 10*6/uL [facility] WBC (Bld) [#/Vol] 6.6 10*3/uL 3.6 - 11.0 10*3/uL [facility] BODY FLUID CELL COUNTon Appearance (Body fld) HAZY [facility] Color (Body fld) LIGHT YELLOW [facility] RBC Auto (Body fld) [#/Vol] 3376 /CMM [facility] Specimen source Nom (Body fld) SYNOVIAL FLUID [facility] WBC (Body fld) [#/Vol] 57 10*3/uL /CMM [facility] DIFFERENTIAL, FLUIDon 2023 BASOPHILS, FLUID 2 % [facility] Comment on above: NO REFERENCE RANGE E STABLISHED Eosinophils/100 WBC (Body fld) 4 % [facility] Comment on above: NO REFERENCE RANGE E STABLISHED Lymphocytes/100 WBC (Body fld) 22 % [facility] Comment on above: NO REFERENCE RANGE E STABLISHED MESOTHELIAL CELLS, FLUID 8 % [facility] Comment on above: NO REFERENCE RANGE E STABLISHED Monocytes+Macrophage s/100 WBC Manual cnt (Body fld) 48 % [facility] Comment on above: NO REFERENCE RANGE E STABLISHED Neutrophils/100 WBC (Body fld) 16 % [facility] Comment on above: NO REFERENCE RANGE E STABLISHED [facility] REPEAT ABO/RH (D) TYPINGon 0 07-07-2023 ABO and Rh group Nom (Bld ) Positive [facility] SCREEN: MRSA ONLY, NARES (IS OLATION SCREEN)on 07-07-2023 MRSA isol Org specific cx Ql (Nose) Negative NEGATIVE [facility] STAPHYOCOCCUS AUREUS BY PCR Negative NEGATIVE [facility] Comment on above: TESTING PERFORMED BY PCR [facility] XR Pelvis 2 Viewson 07-07-19 FINDINGS/IMPRESSION: 1. [...] or other acute bony abnormality is seen. [facility] Radiology Study observation (narrative) [facility] XR Pelvis 2 ViewsOrdered By: Parveen Mason on 07-07-2023 [facility] Work Phone: POCT EKGOrdered By: Samantha Gurrola on 06-02-2023 [facility] COBALT AND CHROMIUM,WBon Chromium (Bld) [Mass/Vol] 1.1 [facility] Comment on above: Reference range: <3. 0 Unit: ng/mL PERFORMED BY [employer] [place] (Bld) [Mass/Vol] <1.0 [facility] Comment on above: Reference range: <3. 0 Unit: ng/mL (NOTE) Chromium and cobalt analysis performed by inductively coupled plasma/mass spectrometry (ICP/MS). Reference range is for patients with uupsx-ui-dtlfa (MoM) orthopedic implants. The [place] Association of Hip and Knee Sur[employer], the [place] Academy of Orthopaedic Surgeons, and The Hip Society, have published a consensus statement, Risk Stratification Algorithm for Management of Patients with Cubgs-wn-Ftjzt Hip Arthroplasty. The algorithm is intended as an aid to orthopedic surgeons in the assessment and management of patients with Rnzba-gg-Hdhvb bearings. The systematic risk stratification includes recommendations [...] developed and its performance characteristics determined by [employer]. It has not been cleared or approved by the Food and Drug Administration. [facility] C REACTIVE PROTEINon 024 CRP [Mass/Vol] 48.4 mg/L High 0 - 10 MG/L [facility] Interpretation and review of laboratory results Abnormal [facility] SEDIMENTATION RATE, AUTOMATE Don 05-14-2023 ESR (Bld) [Velocity] 31 mm/h High [employer] (MM) System Interpretation and review of laboratory results Abnormal [facility] Urinalysis - DIPSTICKon - Appearance (U) cloudy [employer] Other Bilirubin Ql (U) [employer] Other Color (U) yellow [employer] Other Glucose Ql (U) Negative [employer] Other Hemoglobin Ql (U) [employer] Other Ketones Ql (U) Negative [employer] Other Leukocyte esterase Test strip Ql (U) moderate [employer] Other Nitrite Ql (U) Positive [employer] Other pH (U) 5 [pH] [employer] Other Protein Ql (U) Negative [employer] Other Specific gravity (U) [Rel density] 1.010 [employer] Other Urobilinogen (U) [Mass/Vol] off chart [employer] Other Urinalysis - DIPSTICK [employer] Other Urine Cultureon 10-27-2022 Bacteria identified Cx Nom (U) ORGANISM: Escherichia coli (O:ESCCOL) [place] Count >100,000 Aerobic AUBREY Charge (NMIC56) --- [...] RESISTANT TO ALL B-LACTAM DRUGS. PERFORMED BY: [place] [address] PATHOLOGIST WOOD MACHINE CARVER JOSE GUADALUPE FERGUSON M.D. [facility] Comment on above: Performed By: #### C UU #### [address] Urinalysis - DIPSTICKon 06-05 Appearance (U) cloudy [employer] Other Bilirubin Ql (U) Negative [employer] Other Color (U) pale yellow [employer] Other Glucose Ql (U) Negative [employer] Other Hemoglobin Ql (U) non hem-trace [employer] Other Ketones Ql (U) trace [employer] Other Leukocyte esterase Test strip Ql (U) moderate [employer] Other Nitrite Ql (U) Negative [employer] Other pH (U) 5 [pH] [employer] Other Protein Ql (U) trace [employer] Other Specific gravity (U) [Rel density] 1.005 [employer] Other Urobilinogen (U) [Mass/Vol] normal [employer] Other Urinalysis - DIPSTICK [employer] Other CULTURE URINEon 06-11-2022 CULTURE URINE Isolate [...] F Trimethoprim/Sulfameth oxazole <=20 S F Normal [facility] Comment on above: Performed By: #### U RCX #### [facility] [address] [place] [address] Dr. Florencio Narayanan CARDIAC AMBER ADMITon 023 CK [Catalytic activity/Vol] 44 U/L Normal 26-192 [facility] Comment on above: Performed By: #### C LILIAN LOZANO, CMADM #### [facility] [address] [place] [address] Dr. Florencio Narayanan CK.MB [Mass/Vol] ng/mL Normal <=3.60 [facility] Comment on above: Performed By: #### C BLAKE LIPA, CMADM #### [facility] [address] [place] [address] Dr. Florencio Narayanan HSTROP 14.6 pg/mL Normal 4.0-51.3 [facility] Comment on above: Result Comment: CUT- OFF POINTS HAVE BEEN ESTABLISHED BASED ON THE FOURTH UNIVERSAL DEFINITIONS OF MYOCARDIAL INFARCTION. THE UPPER REFERENCE LIMIT (URL) OF TROPONIN, DEFINED THE 99TH PERCENTILE OF cTnI DISTRIBUTION IN A REFERENCE POPULATION, HAS BEEN CONFIRMED THE DECISION THRESHOLD FOR UT DIAGNOSIS. Performed By: #### C MP, LIPA, CMADM #### [facility] [address] [place] [address] Dr. Florencio Narayanan UMER 109 ng/mL Critically high 9-82 [facility] Comment on above: Performed By: #### C MP, LIPA, CMADM #### [facility] [address] [place] [address] Dr. Florencio Narayanan CBC AUTO DIFFon 06-09-2022 BASO # 0.1 103/ul Normal 0.0-0.1 [facility] Comment on above: Performed By: #### C BC #### [facility] [address] [place] [address] Dr. Florencio Narayanan Basophils/100 WBC (Bld) 0.4 % Normal 0.2-2.0 [facility] Comment on above: Performed By: #### C BC #### [facility] [address] [place] [address] Dr. Florencio Narayanan EO # 0.0 103/ul Normal 0.0-0.7 [facility] Comment on above: Performed By: #### C BC #### [facility] [address] [place] [address] Dr. Florencio Narayanan Eosinophils/100 WBC (Bld) 0.2 % Critically low 0.9-7.0 [facility] Comment on above: Performed By: #### C BC #### [facility] [address] [place] [address] Dr. Florencio Narayanan Erythrocyte distribution width (RBC) [Ratio] 12.3 % Normal 11.0-15.0 [facility] Comment on above: Performed By: #### C BC #### [facility] [address] [place] [address] Dr. Florencio Narayanan Hematocrit (Bld) [Volume fraction] 38.4 % Normal 36.0-48.0 [facility] Comment on above: Performed By: #### C BC #### [facility] [address] [place] [address] Dr. Florencio Narayanan Hemoglobin (Bld) [Mass/Vol] 12.7 g/dL Normal 12.0-16.0 [facility] Comment on above: Performed By: #### C BC #### [facility] [address] [place] [address] Dr. Florencio Narayanan IG # 0.06 10e3/ul Critically high 0.00-0.03 [facility] Comment on above: Performed By: #### C BC #### [facility] [address] [place] [address] Dr. Florencio Narayanan IG % 0.5 % Normal 0.0-0.5 [facility] Comment on above: Performed By: #### C BC #### [facility] [address] [place] [address] Dr. Florencio Narayanan LYMPH # 1.0 103/ul Critically low 1.2-3.8 [facility] Comment on above: Performed By: #### C BC #### [facility] [address] [place] [address] Dr. Florencio Narayanan Lymphocytes/100 WBC (Bld) 8.4 % Critically low 20.5-60.0 [facility] Comment on above: Performed By: #### C BC #### [facility] [address] [place] [address] Dr. Florencio Narayanan MANUAL DIFF REQ NO Normal [facility] Comment on above: Performed By: #### C BC #### [facility] [address] [place] [address] Dr. Florencio Narayanan MCH (RBC) [Entitic mass] 32.4 pg Normal 26.7-34.0 [facility] Comment on above: Performed By: #### C BC #### [facility] [address] [place] [address] Dr. Florencio Narayanan MCHC (RBC) [Mass/Vol] 33.1 g/dL Normal 29.9-35.2 [facility] Comment on above: Performed By: #### C BC #### [facility] [address] [place] [address] Dr. Florencio Narayanan MCV (RBC) [Entitic vol] 98.0 fL Normal 81.0-99.0 [facility] Comment on above: Performed By: #### C BC #### [facility] [address] [place] [address] Dr. Florencio Narayanan MONO # 1.6 103/ul Critically high 0.3-0.8 [facility] Comment on above: Performed By: #### C BC #### [facility] [address] [place] [address] Dr. Florencio Narayanan Monocytes/100 WBC (Bld) 13.1 % Critically high 1.7-12.0 [facility] Comment on above: Performed By: #### C BC #### [facility] [address] [place] [address] Dr. Florencio Narayanan NEUT # 9.5 103/ul Critically high 1.4-6.5 [facility] Comment on above: Performed By: #### C BC #### [facility] [address] [place] [address] Dr. Florencio Narayanan Neutrophils/100 WBC (Bld) 77.4 % Critically high 43.0-75.0 [facility] Comment on above: Performed By: #### C BC #### [facility] [address] [place] [address] Dr. Florencio Narayanan Platelet mean volume (Bld) [Entitic vol] 9.4 fL Critically low 9.5-13.5 [facility] Comment on above: Performed By: #### C BC #### [facility] [address] [place] [address] Dr. Florencio Narayanan PLT 140 103/ul Critically low 150-[address] [facility] Comment on above: Performed By: #### C BC #### [facility] [address] [place] [address] Dr. Florencio Narayanan RBC 3.92 106/ul Critically low 4.20-5.40 [facility] Comment on above: Performed By: #### C BC #### [facility] [address] [address] [address] Florencio Narayanan WBC 12.2 103/ul Critically high 4.0-11.0 [facility] Comment on above: Performed By: #### C BC #### [facility] [address] [place] [address] STROKE HEAD WOon [...] LUANA VILLAFANA Date: 2022-06-09 12:24 Normal [facility] Covid-19 PCR (CVDTBH)on SARS-CoV-2 (COVID-19) RNA CHRISTOPHER+probe Ql (Unsp spec) Not detected Normal NOT DETECTED [facility] Comment on above: Result Comment: When [...] for this test is supported by the [place] of Health and Human Service's declaration that [...] longer be used). Performed By: #### C VDTBH #### [facility] [address] [place] [address] Dr. Florencio Narayanan ER URINE PROFILEon 3 Bilirubin Ql (U) Negative Normal NEGATIVE [facility] Comment on above: Performed By: #### E ADIEL PIZANO #### [facility] [address] [place], [place] [id number] Dr. Florencio Narayanan Clarity (U) CLEAR Normal CLEAR [facility] Comment on above: Performed By: #### Malini PIZANO UMICRO #### [facility] [address] [place] [address] Dr. Florencio Narayanan Color (U) LT. YELLOW Normal YELLOW [facility] Comment on above: Performed By: #### E HARINDER, UMICRO #### [facility] [address] [place] [address] Dr. Florencio CONLEY A micrscopic examination will be performed if indicated. Normal [facility] Comment on above: Performed By: #### Malini PIZANO UMICRO #### [facility] [address] [place] [address] Dr. Florencio Narayanan Glucose Ql (U) Negative Normal NEGATIVE [facility] Comment on above: Performed By: #### Malini PIZANO UMICRO #### [facility] [address] [place] [address] Dr. Florencio Narayanan Hemoglobin Ql (U) LARGE Abnormal NEGATIVE [facility] Comment on above: Performed By: #### Malini PIZANO UMICRO #### [facility] [address] [place] [address] Dr. Florencio Narayanan Ketones Ql (U) TRACE Abnormal NEGATIVE [facility] Comment on above: Performed By: #### Malini PIZANO UMICRO #### [facility] [address] [place] [address] Dr. Florencio Narayanan LEUKOCYTES LARGE Abnormal NEGATIVE [facility] Comment on above: Performed By: #### Malini PIZANO UMICRO #### [facility] [address] [place] [address] Dr. Florencio Narayanan Nitrite Ql (U) Positive Abnormal NEGATIVE [facility] Comment on above: Performed By: #### Malini PIZANO UMICRO #### [facility] [address] [place] [address] Dr. Florencio Narayanan pH (U) 5.5 [pH] Normal 5-9 [facility] Comment on above: Performed By: #### Malini PIZANO UMICRO #### [facility] [address] [place] [address] Dr. Florencio Narayanan SPEC GRAVITY 1.010 Normal 1.005-<=1.02 5 [facility] Comment on above: Performed By: #### ADIEL LE #### [facility] [address] [place] [address] Dr. Florencio Narayanan UA PROTEIN TRACE Normal NEGATIVE/ TRACE [facility] Comment on above: Performed By: #### ADIEL LE #### [facility] [address] [place] [address] Dr. Florencio Narayanan UR MICRO IND INDICATED Normal [facility] Comment on above: Performed By: #### ADIEL LE #### [facility] [address] [place] [address] Dr. Florencio Narayanan Urobilinogen Qn (U) 0.2 {Zenia'U}/dL Normal 0.2 - 1. 0 [facility] Comment on above: Performed By: #### ADIEL LE #### [facility] [address] [place] [address] Dr. Florencio Narayanan LIPASEon 06-09-2022 Lipase [Catalytic activity/Vol] 68.0 U/L Critically low 73.0-393.0 [facility] Comment on above: Performed By: #### C MP, LIPA, CMADM #### [facility] [address] [place] [address] Dr. Florencio Narayanan PROF 14(COMP METB)on 023 Albumin [Mass/Vol] 2.5 g/dL Critically low 3.4-5.0 [facility] Comment on above: Performed By: #### C MP, LIPA, CMADM #### [facility] [address] [place] [address] Dr. Florencio Narayanan Albumin/Globulin [Mass ratio] 0.6 {ratio} Normal [facility] Comment on above: Performed By: #### C MP, LIPA, CMADM #### [facility] [address] [place] [address] Dr. Florencio Narayanan ALP [Catalytic activity/Vol] 150 U/L Critically high 46-116 [facility] Comment on above: Performed By: #### C MP, LIPA, CMADM #### [facility] [address] [address] [address] Florencio Narayanan ALT [Catalytic activity/Vol] 27 U/L Normal 14-59 [facility] Comment on above: Performed By: #### C MP, LIPA, CMADM #### [facility] [address] [place] [address] Dr. Florencio Narayanan Anion gap [Moles/Vol] 12.8 mmol/L Normal [facility] Comment on above: Performed By: #### C MP LIPA, CMADM #### [facility] [address] [place] [address] Dr. Florencio Narayanan AST [Catalytic activity/Vol] 31 U/L Normal 15-37 [facility] Comment on above: Performed By: #### C MP, LIPA, CMADM #### [facility] [address] [place] [address] Dr. Florencio Narayanan Bilirubin [Mass/Vol] 1.1 mg/dL Critically high 0.2-1.0 [facility] Comment on above: Performed By: #### C MP, LIPA, CMADM #### [facility] [address] [place] [address] Dr. Florencio Narayanan Calcium [Mass/Vol] 9.1 mg/dL Normal 8.5-10.1 [facility] Comment on above: Performed By: #### C MP, LIPA, CMADM #### [facility] [address] [place] [address] Dr. Florencio Narayanan Chloride [Moles/Vol] 95 mmol/L Critically low 98-107 [facility] Comment on above: Performed By: #### C MP, LIPA, CMADM #### [facility] [address] [place] [address] Dr. Florencio Narayanan CO2 [Moles/Vol] 29.4 mmol/L Normal 21.0-32.0 [facility] Comment on above: Performed By: #### C MP, LIPA, CMADM #### [facility] [address] [address] [address] Florencio Narayanan Creatinine [Mass/Vol] 1.34 mg/dL Critically high 0.55-1.02 [facility] Comment on above: Performed By: #### C MP, LIPA, CMADM #### [facility] [address] [place] [address] Dr. Florencio Narayanan EGFR-AF GIBRALTARIAN 47 mL/min/1.73m2 Critically low >=60 [facility] Comment on above: Performed By: #### C MP, LIPA, CMADM #### [facility] [address] [place] [address] Dr. Florencio Narayanan EGFR-NON AF GIBRALTARIAN 39 mL/min/1.73m2 Critically low >=60 [facility] Comment on above: Performed By: #### C MP, LIPA, CMADM #### [facility] [address] [place] [address] Dr. Florencio Narayanan Globulin (S) [Mass/Vol] 4.3 g/dL Normal [facility] Comment on above: Performed By: #### C MP, LIPA, CMADM #### [facility] [address] [address] [address] Florencio Narayanan Glucose [Mass/Vol] 118 mg/dL Critically high 74-106 [facility] Comment on above: Performed By: #### C MP, LIPA, CMADM #### [facility] [address] [address] [address] Florencio Narayanan Potassium [Moles/Vol] 3.2 mmol/L Critically low 3.5-5.1 [facility] Comment on above: Performed By: #### C MP, LIPA, CMADM #### [facility] [address] [place] [address] Dr. Florencio Narayanan Protein [Mass/Vol] 6.8 g/dL Normal 6.4-8.2 [facility] Comment on above: Performed By: #### C MP, LIPA, CMADM #### [facility] [address] [place] [address] Dr. Florencio Narayanan Sodium [Moles/Vol] 134 mmol/L Critically low 136-145 [facility] Comment on above: Performed By: #### C LILIAN LOZANO CMADM #### [facility] [address] [place] [address] Dr. Florencio Narayanan Urea nitrogen [Mass/Vol] 29.0 mg/dL Critically high 7.0-18.0 [facility] Comment on above: Performed By: #### C LILIAN LOZANO CMADM #### [facility] [address] [place] [address] Dr. Florencio Narayanan Urea nitrogen/Creatinine [Mass ratio] 21.6 mg/mg Normal [facility] Comment on above: Performed By: #### C LILIAN LOZANO CMADM #### [facility] [address] [place] [address] Dr. Florencio Narayanan URINE MICROSCOPIC ONLYon BACTERIA SMALL Abnormal NONE SEEN [facility] Comment on above: Performed By: #### Malini PIZANO UMICRO #### [facility] [address] [place] [address] Dr. Florencio Narayanan Bacteria identified Cx Nom (U) INDICATED Normal [facility] Comment on above: Performed By: #### Malini PIZANO UMICRO #### [facility] [address] [place] [address] Dr. Florencio Narayanan CAST NONE SEEN Normal NONE SEEN [facility] Comment on above: Performed By: #### Malini PIZANO UMICRO #### [facility] [address] [place] [address] Dr. Florencio Narayanan Crystals LM Nom (Urine sed) NONE SEEN Normal NONE SEEN [facility] Comment on above: Performed By: #### Malini PIZANO UMICRO #### [facility] [address] [place] [address] Dr. Florencio Narayanan Epithelial cells LM Ql (Urine sed) FEW Abnormal NONE SEEN /RARE [facility] Comment on above: Performed By: #### Malini PIZANO UMICRO #### [facility] [address] [place] [address] Dr. Florencio Narayanan MUCOUS NONE SEEN Normal NONE SEEN [facility] Comment on above: Performed By: #### ADIEL LE #### [facility] [address] [place], [place] [address] Dr. Florencio Narayanan RBC 2-5 Abnormal 0-2 [facility] Comment on above: Performed By: #### E ADIEL PIZANO #### [facility] [address] [place], [place] [address] Dr. Florencio Narayanan WBC 10-20 Abnormal NONE SEEN [facility] Comment on above: Performed By: #### E ADIEL PIZANO #### [facility] [address] [place], [place] [address] Dr. Florencio Narayanan XR CHEST 2 Von [...] JOAQUÍN ATKINS Date: 2022-06-09 12:24 Normal [facility] CULTURE URINEon 04-16-2022 CULTURE URINE Isolate [...] Trimethoprim/Sulfameth oxazole >=320 R F Normal [facility] Comment on above: Performed By: #### C BC #### [facility] [address] [address] [address] 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 HISTORY OF PRESENT ILLNESS: Mrs. Burns is a very pleasant, alert and oriented -[id number] female who was brought into the emergency [...] quarantine. Many thanks. RENETTA ALMANZAR MD BD/MedQ /[id number] Normal [facility] BASICMETAon 03-11-2020 GFR AA >60 Normal [facility] Comment on above: Result Comment: Afri can Mauritian GFR Calc Medical judgement is necessary to [...] for drug dosing. Performed By: #### 1 20153, [id number], [id number] ####[facility] [id number] [place] [address] Medical Director: Fahad Cast MD GFR/1.73 sq M predicted among non-blacks MDRD (S/P/Bld) [Vol rate/Area] 56 mL/min/1.73m? Normal [facility] Comment on above: Result Comment: [...] for drug dosing. Performed By: #### 1 34727, 482415, 749378 ####[facility] [id number] [place] [address] Medical Director: Fahad Cast MD Osmolality [Osmolality] 291 mOsm/kg Normal 275-295 [facility] Comment on above: Performed By: #### 1 81161, 752004, 570076 ####[facility] [address] [place] [address] Medical Director: Fahad Cast MD Urea nitrogen/Creatinine [Mass ratio] 24.5 mg/mg Normal [facility] Comment on above: Performed By: #### 1 08416, 552849, 194891 ####[facility] [id number] [place] [address] Medical Director: Fahad Cast MD Calcium [Mass/Vol] 9.3 mg/dL Normal 8.5-10.5 [facility] Comment on above: Performed By: #### 1 37571, 842054, 807077 ####[facility] [id number] [place] [address] Medical Director: Fahad Cast MD Chloride [Moles/Vol] 108 mmol/L Normal 100-109 [facility] Comment on above: Performed By: #### 1 39294, 636923, 381749 ####[facility] [id number] [place] [address] Medical Director: Fahad Cast MD CO2, venous 28.9 mmol/L Normal 21.0-32.0 [facility] Comment on above: Performed By: #### 1 20057, 737684, 409591 ####[facility] [id number] [place] [address] Medical Director: Fahad Cast MD Creatinine [Mass/Vol] 1.0 mg/dL Normal 0.6-1.0 [facility] Comment on above: Performed By: #### 1 91256, 488000, 619691 ####[facility] [address] [place] [address] Medical Director: Fahad Cast MD Glucose [Mass/Vol] 98 mg/dL Normal 72-100 [facility] Comment on above: Result Comment: Sharon puncture should occur prior to sulfasalazine administration due to the potential for falsely depressed results. Venipuncture should occur prior to sulfapyridine administration due to the potential falsely elevated results. Baseline assay values before administration of sulfasalazine and sulfapyridine therapy would not be affected. Performed By: #### 1 60721, 311720, 160212 ####[facility] [id number] [place], [place] [id number]) [phone] Director: Fahad Cast MD Potassium [Moles/Vol] 4.2 mmol/L Normal 3.5-5.1 [facility] Comment on above: Performed By: #### 1 61830, 897344, 240317 ####[facility] [id number] [place] [address] Medical Director: Fahad Cast MD Sodium [Moles/Vol] 144 mmol/L Normal 135-145 [facility] Comment on above: Performed By: #### 1 51590, 181034, 518410 ####[facility] [address] [place] [address] Medical Director: Fahad Cast MD Urea nitrogen [Mass/Vol] 24 mg/dL High 10-20 [facility] Comment on above: Performed By: #### 1 25465, 834029, 176529 ####[facility] [id number] [place] [address] Medical Director: Fahad Cast MD CBCNDon 03-11-2020 Erythrocyte distribution width (RBC) [Ratio] 14.4 % Normal 11.5-14.5 [facility] Comment on above: Performed By: #### 1 05597, 160788, 604656 #### [facility] [address] [place] [address] Fabrication Engineer: Fahad Cast MD Hematocrit (Bld) [Volume fraction] 33.9 % Low 36.0-46.0 [facility] Comment on above: Performed By: #### 1 19447, 360700, 181904 #### [facility] [address] [place] [address] Fabrication Engineer: Fahad Cast MD Hemoglobin (Bld) [Mass/Vol] 11.2 g/dL Low 12.0-16.0 [facility] Comment on above: Performed By: #### 1 14469, 598439, 898027 #### [facility] [address] [place] [address] Fabrication Engineer: Fahad Cast MD MCH (RBC) [Entitic mass] 29.5 pg Normal 27.0-34.0 [facility] Comment on above: Performed By: #### 1 03038, 705462, 793014 #### [facility] [address] [place] [address] Fabrication Engineer: Fahad Cast MD MCHC (RBC) [Mass/Vol] 33.0 g/dL Normal 32.0-37.0 [facility] Comment on above: Performed By: #### 1 92911, 379402, 233914 #### [facility] [address] [place] [address] Fabrication Engineer: Fahad Cast MD MCV (RBC) [Entitic vol] 89.5 fL Normal 80.0-100.0 [facility] Comment on above: Performed By: #### 1 09832, 622102, 234184 #### [facility] [address] [place] [address] Fabrication Engineer: Fahad Cast MD Platelet mean volume (Bld) [Entitic vol] 6.8 fL Low 7.4-10.4 [facility] Comment on above: Performed By: #### 1 93130, 830099, 292149 #### [facility] [address] [place] [address] Fabrication Engineer: Fahad Cast MD Platelets (Bld) [#/Vol] 232 x1000 Normal 150-450 [facility] Comment on above: Performed By: #### 1 27974, 364766, 216154 #### [facility] [address] [place] [address] Fabrication Engineer: Fahad Cast MD RBC (Bld) [#/Vol] 3.79 x10 Low 4.20-5.40 [facility] Comment on above: Result Comment: Note : RBC morphology is normal unless otherwise stated. Evaluation performed only if differential is requested. Performed By: #### 1 57292, 607326, 792215 #### [facility] [address] [place] [address] Fabrication Engineer: Fahad Cast MD WBC (Bld) [#/Vol] 5.8 10*3/uL Normal [facility] Comment on above: Performed By: #### 1 86215, 019706, 944607 #### [facility] [address] [place] [address] Fabrication Engineer: Fahad Cast MD WBC (Bld) [#/Vol] 5.8 x10 Normal 4.5-11.0 [facility] Comment on above: Performed By: #### 1 04915, 115096, 952092 #### [facility] [address] [place] [address] Fabrication Engineer: Fahad Cast MD D Dimer HSon 03-11-2020 D Dimer HS 821 ng/mL FEU High <=499 [facility] Comment on above: Result Comment: Excl usion of PE and DVT The D Dimer HS assay is reported in ng/ml Fibrinogen Equivalent Units (FEU). Per risk intern?s instructions for use, a value less than 500ng/ml (FEU) may help to exclude DVT and /or PE in outpatients when the assay is used with a clinical pretest probability assessment. D-Dimer used for DIC Screens Assay results should be used with other information, including the clinical context in forming a diagnosis. Performed By: #### C [id number] ####[facility] [id number] [place] [address] Medical Director: Fahad Cast MD LDHon 03-11-2020 LDH 198 unit/L Normal 84-246 [facility] Comment on above: Performed By: #### 1 68235, 119478, 845893 #### [facility] [address] [place] [address] Fabrication Engineer: Fahad Cast MD Progress Note-Physicianon Progress Note-Physician [...] medications. 6) DVT ppx: On Eliquis Normal [facility] Utilization Review Noteon Utilization Review Note ID Consult pending DISCHARGE WRITTEN AND PLANNED. Normal [facility] AUTO DIFFon 03-10-2020 Basophils (Bld) [#/Vol] 0.05 x1000 Normal 0.00-0.20 [facility] Comment on above: Performed By: #### 1 18020, 713116, 1293027 ####[facility] [id number] [place] [address] Medical Director: Fahad Cast MD Basos % 0.6 % Normal [facility] Comment on above: Performed By: #### 1 34266, 325391, 0062406 ####[facility] [address] [place] [address] Medical Director: Fahad Cast MD Eos Count 0.15 x1000 Normal 0.00-0.50 [facility] Comment on above: Performed By: #### 1 35872, 871898, 5177319 ####[facility] [address] [place] [address] Medical Director: Fahad Cast MD Eosinophils/100 WBC (Bld) 1.8 % Normal [facility] Comment on above: Performed By: #### 1 98132, 792013, 7620797 ####[facility] [address] [place] [address] Medical Director: Fahad Cast MD Lymphocytes (Bld) [#/Vol] 1.05 x1000 Low 1.20-4.80 [facility] Comment on above: Performed By: #### 1 30025, 134086, 2796341 ####[facility] [id number] [place] [address] Medical Director: Fahad Cast MD Lymphocytes/100 WBC (Bld) 12.7 % Normal [facility] Comment on above: Performed By: #### 1 59536, 219196, 0999191 ####[facility] [id number] [place] [address] Medical Director: Fahad Cast MD [place] Count 0.70 x1000 Normal 0.10-1.00 [facility] Comment on above: Performed By: #### 1 56590, 442898, 5328496 ####[facility] [id number] [place] [address] Medical Director: Fahad Cast MD Monocytes/100 WBC (Bld) 8.4 % Normal [facility] Comment on above: Performed By: #### 1 06655, 451050, 6792255 ####[facility] [id number] [place] [address] Medical Director: Fahad aCst MD Neutrophils (Bld) [#/Vol] 6.32 x1000 Normal 1.40-8.80 [facility] Comment on above: Performed By: #### 1 30167, 290240, [id number] ####[facility] [address]qh[address] [place] [address] Medical Director: Fahad Cast MD Neutrophils/100 WBC (Bld) 76.4 % Normal [facility] Comment on above: Performed By: #### 1 , 038649, [id number] ####[facility] Qjjlzlax55083 [place] [address] Medical Director: Fahad Cast MD COMPMETAon 03-10-2020 Albumin [Mass/Vol] 3.4 g/dL Normal 3.4-5.0 [facility] Comment on above: Performed By: #### 1 , 940047, [id number] ####[facility] Afqsxdlo14538 [place] [address] Medical Director: Fahad Cast MD Albumin/Globulin [Mass ratio] 0.8 {ratio} Normal [facility] Comment on above: Performed By: #### 1 , 907371, [id number] ####[facility] Hdjhfruw80733 [place] [address] Medical Director: Fahad Cast MD Alk Phos 71 unit/L Normal 45-117 [facility] Comment on above: Performed By: #### 1 , 339545, 2208179 ####[facility] Tgvjracw54818 [place] [address] Medical Director: Fahad Cast MD Bilirubin [Mass/Vol] 0.37 mg/dL Normal 0.20-1.00 [facility] Comment on above: Result Comment: Use of this assay is not recommended for patients undergoing treatment with eltrombopag due to the potential for falsely elevated results. Performed By: #### 1 , 443986, [id number] ####[facility] Yuiwvzba02962 [place] [address] Medical Director: Fahad Cast MD Calcium [Mass/Vol] 9.4 mg/dL Normal 8.5-10.5 [facility] Comment on above: Performed By: #### 1 11038, 315206, 5882939 ####[facility] Elmxgdrd72091 [place] [address] Medical Director: Fahad Cast MD Chloride [Moles/Vol] 108 mmol/L Normal 100-109 [facility] Comment on above: Performed By: #### 1 26991, 039239, 7811127 ####[facility] Rotataun40081 [place] [address] Medical Director: Fahad Cast MD CO2, venous 28.2 mmol/L Normal 21.0-32.0 [facility] Comment on above: Performed By: #### 1 19895, 929524, 6512386 ####[facility] Rponxzee46977 [place] [address] Medical Director: Fahad Cast MD Creatinine [Mass/Vol] 1.2 mg/dL High 0.6-1.0 [facility] Comment on above: Performed By: #### 1 52246, 088682, 9146344 ####[facility] Yvgjdnpt09282 [place] [address] Medical Director: Fahad Cast MD GFR AA 53 Normal [facility] Comment on above: Result Comment: Afri can Mauritian GFR Calc Medical judgement is necessary to [...] for drug dosing. Performed By: #### 1 66489, 932346, 5698973 ####[facility] Tdxghevy90030 [place] [address] Medical Director: Fahad Cast MD GFR/1.73 sq M predicted among non-blacks MDRD (S/P/Bld) [Vol rate/Area] 44 mL/min/1.73m? Normal [facility] Comment on above: Result Comment: [...] for drug dosing. Performed By: #### 1 51755, 143943, 1249045 ####[facility] Aqpwjapl88999 [place] [address] Medical Director: Fahad Cast MD Globulin (S) [Mass/Vol] 4.0 g/dL Normal [facility] Comment on above: Performed By: #### 1 82896, 786421, 0831684 ####[facility] [address] [place] [id number] Medical Director: Fahad Cast MD Glucose [Mass/Vol] 143 mg/dL High 72-100 [facility] Comment on above: Result Comment: Sharon puncture should occur prior to sulfasalazine administration due to the potential for falsely depressed results. Venipuncture should occur prior to sulfapyridine administration due to the potential falsely elevated results. Baseline assay values before administration of sulfasalazine and sulfapyridine therapy would not be affected. Performed By: #### 1 20173, 196004, 3113586 ####[facility] [address]clxot[address] [place] [id number] Medical Director: Fahad Cast MD GOT 18 unit/L Normal 15-37 [facility] Comment on above: Result Comment: Sharon puncture should occur prior to sulfasalazine and/or sulfapyridine administration due to the potential for falsely depressed results. Baseline assay values before administration of sulfasalazine and sulfapyridine therapy would not be affected. Performed By: #### 1 37464, 053873, 9580151 ####[facility] Te[address]wztq11246 [place] [address] Medical Director: Fahad Cast MD GPT 19 unit/L Normal 13-56 [facility] Comment on above: Result Comment: Sharon puncture should occur prior to sulfasalazine and/or sulfapyridine administration due to the potential for falsely depressed results. Baseline assay values before administration of sulfasalazine and sulfapyridine therapy would not be affected. Performed By: #### 1 31711, 449537, 2717471 ####[facility] Yzxzkyzx50907 [place] [address] Medical Director: Fahad Cast MD Osmolality [Osmolality] 293 mOsm/kg Normal 275-295 [facility] Comment on above: Performed By: #### 1 79891, 164316, 7528241 ####[facility] Kjwqmump28627 [place] [address] Medical Director: Fahad Cast MD Potassium [Moles/Vol] 4.0 mmol/L Normal 3.5-5.1 [facility] Comment on above: Performed By: #### 1 60206, 915267, 8022111 ####[facility] Emdailud92461 [place] [address] Medical Director: Fahad Cast MD Protein [Mass/Vol] 7.4 g/dL Normal 6.0-8.5 [facility] Comment on above: Performed By: #### 1 76854, 639900, 2437252 ####[facility] Clvidvba50477 [place] [address] Medical Director: Fahad Cast MD Sodium [Moles/Vol] 142 mmol/L Normal 135-145 [facility] Comment on above: Performed By: #### 1 95016, 243990, 5770740 ####[facility] Tpoxyhkt12898 [place] [address] Medical Director: Fahad Cast MD Urea nitrogen [Mass/Vol] 32 mg/dL High 10-20 [facility] Comment on above: Performed By: #### 1 95448, 398279, 8572497 ####[facility] Ccbvxxkl13127 [place] [address] Medical Director: Fahad Cast MD Urea nitrogen/Creatinine [Mass ratio] 26.7 mg/mg Normal [facility] Comment on above: Performed By: #### 1 36878, 532549, 8474852 ####[facility] Vxsi[address]oo92391 [place] [address] Medical Director: Fahad Cast MD COVID-19 by PCR SWEDon 03-10 COVID-19 by PCR SWED Positive Abnormal Sout [facility] Comment on above: Result Comment: CALL ER COCO NG 03/10/2020 18:23:22 EST BY SHF; RBR Performed By: #### C [id number] ####[facility] Wipatwdp28020 [place] [address] Medical Director: Fahad Cast MD CRP QUANTon 03-10-2020 C-Reactive Protein, Quantitative 0.8 mg/dL High 0.0-0.3 [facility] Comment on above: Performed By: #### 1 54381, [id number], [id number], [id number] #### [facility] Services [address] [place] [address] Fabrication Engineer: Fahad Cast MD CT ABD PELVIS W [...] by: Oni Liu MD 03/10/2020 3:50 PM [employer] Technologist: LIEN BLANCA Dictated By: ONI LIU MD Signed By: ONI LIU MD Signed Out: 03/10/20 16:50:49 Normal [facility] D Dimer HSon 03-10-2020 D Dimer HS 264 ng/mL FEU Normal <=499 [facility] Comment on above: Result Comment: Excl usion of PE and DVT The D Dimer HS assay is reported in ng/ml Fibrinogen Equivalent Units (FEU). Per risk intern?s instructions for use, a value less than 500ng/ml (FEU) may help to exclude DVT and /or PE in outpatients when the assay is used with a clinical pretest probability assessment. D-Dimer used for DIC Screens Assay results should be used with other information, including the clinical context in forming a diagnosis. Performed By: #### 1 34939, [id number], [id number], [id number] #### [facility] Services [address] [place], [place] [id number] Fabrication Engineer: Fahad Cast MD ED Physician Reporton 2019 [...] [facility] Therapy today: see nurses notes. Preceding [...] Line Saline Flush: 3 mL, IV Push, [id number] Documented Medications Documented Eliquis 5 mg oral [...] Interp, Sinus rhythm with first-degree AV block, FL interval 256, QT/QTc/433, incomplete right bundle branch [...] /100WBC NA Lymph % 12.7 % NA [place] % 8.4 % NA Neutrophil % 76.4 % NA Eosin % 1.8 % NA Basos % 0.6 % NA Lymph Count 1.05 x1000 LOW [place] Count 0.70 x1000 NORMAL Neutrophil Count (ANC) [...] by: Monae Hernandez MD 03/10/2020 1:58 PM [employer] Signed By: MONAE HERNANDEZ MD CT ABD [...] by: Oni Liu MD 03/10/2020 3:50 PM [facility] Signed By: ONI LIU MD . [...] Course: improving. Impression and Plan Diagnosis Syncope ([id number] R55, Working, Medical) Plan Condition: Stable. Disposition: [...] accurately records my words and actions.. Normal [facility] ED Pre-Arrival Formon 2019 ED Pre-Arrival Form Pre-Arrival Summary Name: STR, Current Date: 03/10/2020 13:52:19 EST Gender: Date of : Age: Pre-Arrival Type: EMS ETA: 03/10/2020 14:15:00 EST Primary Care Physician: Presenting Problem: Pre-Arrival User: Neil Vázquez RN Referring Source: Location: 1 [facility] Emergency Department [address] [place] [address]. [place] [address] Notes: Vital Signs: Doctor Call Back: DNR Status: Miscellaneous Issues: Normal [facility] ED Progress Noteon 0 ED Progress Note report not put in by previous rn pt here for syncopal episode after diarrhea episode pt has hx of afib. pt covid+ report called to neil rn will come get pt Normal [facility] FERRITINon 03-10-2020 Ferritin [Mass/Vol] 32 ng/mL Normal 8-252 [facility] Comment on above: Performed By: #### 1 12317, [id number], [id number], [id number] #### [facility] Services [address] [place] [id number] Fabrication Engineer: Fahad Cast MD HEMOon 03-10-2020 DIFF? No Normal [facility] Comment on above: Performed By: #### 1 84807, 426592, 3716212 ####[facility] Yxhbiayv52451 [place], [place] [id number]) [phone] Director: Fahad Cast MD Erythrocyte distribution width (RBC) [Ratio] 14.5 % Normal 11.5-14.5 [facility] Comment on above: Performed By: #### 1 26736, 833889, 4798967 ####[facility] Cxeyobii81997 [place] [address] Medical Director: Fahad Cast MD Hematocrit (Bld) [Volume fraction] 35.8 % Low 36.0-46.0 [facility] Comment on above: Performed By: #### 1 91965, 193712, 8891510 ####[facility] Vatoyidh55125 [place] [address] Medical Director: Fahad Cast MD Hemoglobin (Bld) [Mass/Vol] 11.7 g/dL Low 12.0-16.0 [facility] Comment on above: Performed By: #### 1 98435, 582734, 4522837 ####[facility] Fgacixee89928 [place] [address] Medical Director: Fahad Cast MD MCH (RBC) [Entitic mass] 29.4 pg Normal 27.0-34.0 [facility] Comment on above: Performed By: #### 1 68599, 439051, 9798955 ####[facility] Yowanpnl45337 [place] [address] Medical Director: Fahad Cast MD MCHC (RBC) [Mass/Vol] 32.7 g/dL Normal 32.0-37.0 [facility] Comment on above: Performed By: #### 1 20694, 757276, 9954924 ####[facility] Klgbintd05950 [place] [address] Medical Director: Fahad Cast MD MCV (RBC) [Entitic vol] 89.8 fL Normal 80.0-100.0 [facility] Comment on above: Performed By: #### 1 16181, 025741, 8007607 ####[facility] Eqyldkfo03014 [place] [address] Medical Director: Fahad Cast MD Nucleated RBC (Bld) [#/Vol] 0 /100WBC Normal [facility] Comment on above: Performed By: #### 1 39942, 570105, 8757750 ####[facility] [address] [place] [address] Medical Director: Fahad Cast MD Platelet mean volume (Bld) [Entitic vol] 6.7 fL Low 7.4-10.4 [facility] Comment on above: Performed By: #### 1 35188, 882060, 4604353 ####[facility] [address] [place] [address] Medical Director: Fahad Cast MD Platelets (Bld) [#/Vol] 252 x1000 Normal 150-450 [facility] Comment on above: Performed By: #### 1 58867, 441450, 1117760 ####[facility] Jchemijd53561 [place], [place] [address]) [phone] Director: Fahad Cast MD RBC (Bld) [#/Vol] 3.99 x10 Low 4.20-5.40 [facility] Comment on above: Result Comment: Note : RBC morphology is normal unless otherwise stated. Evaluation performed only if differential is requested. Performed By: #### 1 16533, 492336, 8197810 ####[facility] Xvqaoqdf76571 [place] [address] Medical Director: Fahad Cast MD WBC (Bld) [#/Vol] 8.3 10*3/uL Normal [facility] Comment on above: Performed By: #### 1 78499, 444270, 2314315 ####[facility] Kkfgjxzl29996 [place] [address] Medical Director: Fahad Cast MD WBC (Bld) [#/Vol] 8.3 x10 Normal 4.5-11.0 [facility] Comment on above: Performed By: #### 1 52801, 008121, 4374739 ####[facility] Sbqkyrqj42384 [place] [address] [facility] Director: Fahad Cast MD History and Physicalon [...] ppx: On Eliquis OT MESA on Normal [facility] LACTATEon 03-10-2020 Lactate [Moles/Vol] 1.8 mmol/L Normal 0.4-2.0 [facility] Comment on above: Performed By: #### 1 96445 #### [facility] Services [address] [place] [address] Fabrication Engineer: Fahad Cast MD LIPon 03-10-2020 Lipase [Catalytic activity/Vol] 135 unit/L Normal 73-393 [facility] Comment on above: Performed By: #### 1 74766, 228568, 015690 ####[facility] Ocvhawzf15416 [place] [address] Medical Director: Fahad Cast MD MG LEVELon 03-10-2020 Magnesium [Mass/Vol] 1.9 mg/dL Normal 1.6-2.6 [facility] Comment on above: Performed By: #### 1 49006, 007323, 314019 ####[facility] Rykumqzh24645 [place] [address] Medical Director: Fahad Cast MD PCTon 03-10-2020 Procalcitonin <0.05 Normal [facility] Comment on above: Result Comment: [...] or septic shock. Performed By: #### 1 80115, [id number], [id number], [id number] #### [facility] Services [address] [place] [address] Fabrication Engineer: Fahad Cast MD TROPONINon 03-10-2020 Troponin I.cardiac [Mass/Vol] ng/mL Normal 0.000-0.099 [facility] Comment on above: Result Comment: This test is a quantitative determination of cardiac troponin I. High levels of serum biotin may interfere with this test. Performed By: #### 1 87039, 853642, 779064 ####[facility] Nspgmmoh32425 [place] [address] Medical Director: Fahad Cast MD [...] by: Monae Hernandez MD 03/10/2020 1:58 PM [employer] Technologist: THANG JAMES Dictated By: MNOAE HERNANDEZ MD Signed By: MONAE HERNANDEZ MD Signed Out: 03/10/20 14:58:26 Normal [facility] Vital Signs Date Time Vital Sign Value Performing Clinician Facility 07-14-2024 13:15-0400 Body height 165.1 cm Paula Barrera APRN-CELEBRITY MANAGER Work Phone: [facility] 07-14-2024 13:15-0400 Body mass index (BMI) [Ratio] 27.96 kg/m2 Paula Amari PATIENT REGISTRATION REPRESENTATIVE-CELEBRITY MANAGER Work Phone: [facility] 07-14-2024 13:15-0400 Body weight 76.2 kg Paula Amari PATIENT REGISTRATION REPRESENTATIVE-CELEBRITY MANAGER Work Phone: [facility] 06-22-2024 12:54-0500 Blood Pressure Location [facility] 06-22-2024 12:54-0500 Diastolic blood pressure 55 mm[Hg] [facility] E [facility] 06-22-2024 12:54-0500 Heart rate 56 /min Maria E Os[facility] 06-22-2024 12:54-0500 Respiratory rate 18 /min [facility] E [facility] 06-22-2024 12:54-0500 Systolic blood pressure 125 mm[Hg] [facility] E [facility] 05-09-2024 09:17-0500 Body height 165.1 cm [facility] 05-09-2024 09:17-0500 Body mass index (BMI) [Ratio] 29.1 kg/m2 [facility] 05-09-2024 09:17-0500 Body weight 79.37 kg [facility] 05-09-2024 09:17-0500 Diastolic blood pressure 70 mm[Hg] [facility] 05-09-2024 09:17-0500 Heart rate 58 /min [facility] 05-09-2024 09:17-0500 Systolic blood pressure 116 mm[Hg] [facility] 04-30-2024 10:29-0500 Body height 165.1 cm [facility] 04-30-2024 10:29-0500 Body mass index (BMI) [Ratio] 29.1 kg/m2 [facility] 04-30-2024 10:29-0500 Body temperature 99.2 [degF] [facility] 04-30-2024 10:29-0500 Body weight 79.43 kg [facility] 04-30-2024 10:29-0500 Diastolic blood pressure 75 mm[Hg] [facility] 04-30-2024 10:29-0500 Heart rate 58 /min [facility] 04-30-2024 10:29-0500 Respiratory rate 16 /min [facility] 04-30-2024 10:29-0500 SaO2% (BldA) [Mass fraction] 94 % [facility] 04-30-2024 10:29-0500 Systolic blood pressure 146 mm[Hg] [facility] 02-01-2024 11:13-0400 Body height 165.1 cm [facility] 02-01-2024 11:13-0400 Body mass index (BMI) [Ratio] 28.3 kg/m2 [facility] 02-01-2024 11:13-0400 Body weight 77.11 kg [facility] 02-01-2024 11:13-0400 Diastolic blood pressure 72 mm[Hg] [facility] 02-01-2024 11:13-0400 Heart rate 60 /min [facility] 02-01-2024 11:13-0400 Systolic blood pressure 134 mm[Hg] [facility] 11-26-2023 14:08-0400 Body height 165.1 cm Miko Ohara MD Work Phone: [facility] 11-26-2023 14:08-0400 Body mass index (BMI) [Ratio] 27.96 kg/m2 Miko Ohara MD Work Phone: [facility] 11-26-2023 14:08-0400 Body temperature 97 [degF] Miko Ohara MD Work Phone: [facility] 11-26-2023 14:08-0400 Body weight 76.2 kg Miko Ohara MD Work Phone: [facility] 11-26-2023 09:56-0400 Body height 165.1 cm Mainor Post MD Work Phone: [facility] 11-26-2023 09:56-0400 Body mass index (BMI) [Ratio] 28.12 kg/m2 Mainor Post MD Work Phone: [facility] 11-26-2023 09:56-0400 Body weight 76.66 kg Mainor Post MD Work Phone: [facility] 11-26-2023 09:56-0400 Diastolic blood pressure 76 mm[Hg] Mainor Post MD Work Phone: [facility] 11-26-2023 09:56-0400 Heart rate 56 /min Mainor Post MD Work Phone: [facility] 11-26-2023 09:56-0400 Systolic blood pressure 124 mm[Hg] Mainor Post MD Work Phone: [facility] 10-28-2023 08:41-0400 Body height 165.1 cm [facility] 10-28-2023 08:41-0400 Body mass index (BMI) [Ratio] 27.9 kg/m2 [facility] 10-28-2023 08:41-0400 Body weight 76.2 kg [facility] 10-28-2023 08:41-0400 Diastolic blood pressure 68 mm[Hg] [facility] 10-28-2023 08:41-0400 Heart rate 58 /min [facility] 10-28-2023 08:41-0400 Systolic blood pressure 106 mm[Hg] [facility] 08-20-2023 14:38-0400 Body height 165.1 cm Divine [employer] Work Phone: [facility] 08-20-2023 14:38-0400 Body mass index (BMI) [Ratio] 27.96 kg/m2 Divine Peek[employer] Work Phone: [facility] 08-20-2023 14:38-0400 Body weight 76.2 kg Divine [employer] Work Phone: [facility] 07-23-2023 14:45-0400 Body height 165.1 cm Divine [employer] Work Phone: [facility] 07-23-2023 14:45-0400 Body mass index (BMI) [Ratio] 27.96 kg/m2 Divine Brocwell Work Phone: [facility] [employer] [facility] 07-23-2023 14:45-0400 Body weight 76.2 kg Divine [employer] Work Phone: [facility] 2023 15:34-0500 Body temperature 97.9 [degF] Miko Ohara MD Work Phone: [facility] 2023 15:34-0500 Diastolic blood pressure 53 mm[Hg] Miko Ohara MD Work Phone: [facility] [employer] [facility] 2023 15:34-0500 Heart rate 80 /min Miko Ohara MD Work Phone: [facility] 2023 15:34-0500 Respiratory rate 16 /min Miko Ohara MD Work Phone: [facility] 2023 15:34-0500 SaO2% (BldA) [Mass fraction] 98 % Miko Ohara MD Work Phone: [facility] 2023 15:34-0500 Systolic blood pressure 110 mm[Hg] Miko Ohara MD Work Phone: [facility] 07-07-2023 16:39-0500 Body height 165.1 cm Miko Ohara MD Work Phone: [facility] 07-07-2023 16:39-0500 Body mass index (BMI) [Ratio] 28.02 kg/m2 Miko Ohara MD Work Phone: [facility] [employer] [facility] 07-07-2023 16:39-0500 Body weight 76.39 kg Miko Ohara MD Work Phone: [facility] 06-18-2023 14:31-0500 Body height 165.1 cm Miko Ohara MD Work Phone: [facility] [employer] [facility] 06-18-2023 14:31-0500 Body mass index (BMI) [Ratio] 28.12 kg/m2 Miko Ohara MD Work Phone: [employer] [facility] 06-18-2023 14:31-0500 Body weight 76.66 kg Miko Ohara MD Work Phone: [facility] 06-02-2023 11:19-0500 Body height 165.1 cm Donna Diaz MD Work Phone: [facility] 06-02-2023 11:19-0500 Body mass index (BMI) [Ratio] 28.12 kg/m2 Donna Diaz MD Work Phone: [employer] 06-02-2023 11:19-0500 Body weight 76.66 kg Donna Diaz MD Work Phone: [employer] 06-02-2023 11:19-0500 Diastolic blood pressure 68 mm[Hg] Donna Diaz MD Work Phone: [employer] 06-02-2023 11:19-0500 Heart rate 62 /min Donna Diaz MD Work Phone: [employer] 06-02-2023 11:19-0500 SaO2% (BldA) [Mass fraction] 99 % Donna Diaz MD Work Phone: [employer] 06-02-2023 11:19-0500 Systolic blood pressure 106 mm[Hg] Donna Diaz MD Work Phone: [employer] 05-14-2023 09:38-0500 Body height 165.1 cm Miko Ohara MD Work Phone: [employer] 05-14-2023 09:38-0500 Body mass index (BMI) [Ratio] 29.12 kg/m2 Miko Ohara MD Work Phone: [employer] 05-14-2023 09:38-0500 Body temperature 98.2 [degF] Miko Ohara MD Work Phone: [employer] 05-14-2023 09:38-0500 Body weight 79.38 kg Miko Ohara MD Work Phone: [employer] 10-30-2022 14:45-0400 Body height 165.1 cm Elliot Starks Other [employer] Other 10-30-2022 14:45-0400 Body mass index (BMI) [Ratio] 28.4 kg/m2 Elliot Starks Other [employer] Other 10-30-2022 14:45-0400 Body weight 77.43 kg Elliot Starks Other [employer] Other 10-30-2022 14:45-0400 Diastolic blood pressure 66 mm[Hg] Elliot Starks Other [employer] Other 10-30-2022 14:45-0400 Systolic blood pressure 123 mm[Hg] Elliot Starks Other [employer] Other 06-04-2022 11:30-0500 Body height 165.1 cm Elliot Starks Other [employer] Other 06-04-2022 11:30-0500 Body mass index (BMI) [Ratio] 28.29 kg/m2 Elliot Starks Other [employer] Other 06-04-2022 11:30-0500 Body weight 77.11 kg Elliot Starks Other [employer] Other 06-04-2022 11:30-0500 Diastolic blood pressure 64 mm[Hg] Elliot Starks Other [employer] Other 06-04-2022 11:30-0500 SaO2% (BldA) [Mass fraction] 99 % Elliot Starks Other [employer] Other 06-04-2022 11:30-0500 Systolic blood pressure 104 mm[Hg] Elliot Starks Other [employer] Other Encounters Encounter Date Encounter Type Care Provider Facility Start: 07-20-2024 ambulatory Alfreda Miller Facility:[facility] Start: 07-14-2024 End: 07-14-2024 Postop follow up visit related to original fausto Barrera APRN-CELEBRITY MANAGER Work Phone: [facility] Comment on above: Hx of total hip arth roplasty, right (Primary Dx) Start: 07-14-2024 End: 07-14-2024 Subsequent hospital visit by physician Paula Barrera PATIENT REGISTRATION REPRESENTATIVE-CELEBRITY MANAGER Work Phone: [facility] Start: 07-14-2024 ambulatory ELLIOT STARKS [facility] Start: 06-30-2024 End: 07-06-2024 Refill Michael Castanon PATIENT REGISTRATION REPRESENTATIVE-CELEBRITY MANAGER Work Phone: [facility] Comment on above: Med Refill Start: 06-22-2024 End: 07-26-2024 Pre-admission assessment Alfreda Miller [facility] Start: 06-22-2024 End: 06-22-2024 ambulatory Maria E Jacqui Facility:[facility] Start: 06-22-2024 End: 06-22-2024 Lab Drop off Maria E Osman [facility] Start: 06-22-2024 End: 06-22-2024 ambulatory Maria E Jacqui Facility:[facility] Start: 06-22-2024 End: 06-22-2024 Patient encounter procedure Maria E Osman [facility] Start: 06-21-2024 End: 06-21-2024 ambulatory [facility] Work Phone: Start: 06-21-2024 End: 06-21-2024 Patient encounter procedure [facility] Work Phone: Start: 05-11-2024 Non-patient / Non-visit [facility] Work Phone: Start: 05-09-2024 End: 05-09-2024 ambulatory [facility] Work Phone: Start: 05-09-2024 End: 05-09-2024 Patient encounter procedure [facility] Work Phone: Start: 04-30-2024 End: 04-30-2024 Patient encounter procedure [facility] Work Phone: Start: 04-04-2024 End: 04-04-2024 ambulatory Daisy Liz MD Facility:[facility] Start: 02-01-2024 End: 02-01-2024 ambulatory [facility] Work Phone: Start: 02-01-2024 End: 02-01-2024 Patient encounter procedure [facility] Work Phone: Start: 01-02-2024 End: 01-05-2024 Refill Rosangela Montague PATIENT REGISTRATION REPRESENTATIVE-CELEBRITY MANAGER Work Phone: [facility] Comment on above: Med Refill Start: 12-14-2023 End: 12-14-2023 ambulatory Daisy Liz MD Facility: [facility] Start: 11-26-2023 End: 11-26-2023 Subsequent hospital visit by physician Miko Ohara MD Work Phone: [facility] Start: 11-26-2023 ambulatory MIKO OHARA [facility] Start: 11-26-2023 End: 11-26-2023 Office outpatient visit 15 minutes Miko Ohara MD Work Phone: [facility] Comment on above: Hx of total hip arth roplasty, right (Primary Dx) Paroxysmal atrial fi brillation (CMS-HCC) (Primary Dx); Unstable angina (CMS-HCC); SOB (shortness of breath) Start: 11-25-2023 End: 11-25-2023 Telephone encounter [facility] Start: 10-28-2023 End: 10-28-2023 ambulatory [facility] Work Phone: Start: 10-28-2023 End: 10-28-2023 Patient encounter procedure [facility] Work Phone: Start: 10-19-2023 End: 10-26-2023 Refill Mike Craft MD Work Phone: [facility] Comment on above: Med Refill Start: 09-30-2023 End: 10-01-2023 ambulatory ANDREW CHOI [facility] Start: 09-17-2023 Telephone encounter Matt Duron Hematology/Oncology Comment on above: Yearly Exam With Shane michael Start: 08-20-2023 End: 08-20-2023 Subsequent hospital visit by physician Divine Dougherty Work Phone: [facility] Start: 08-20-2023 ambulatory DIVINE DOUGHERTY [facility] Start: 08-20-2023 End: 08-20-2023 Postop follow up visit related to original px Divine Dougherty Work Phone: [facility] Comment on above: Right hip pain (Prim hayden Dx) Start: 08-20-2023 ambulatory ELLIOT RAUDEL [facility] Start: 08-12-2023 End: 08-12-2023 ambulatory MIKO Malini VASQUEZ [facility] Start: 08-10-2023 End: 08-13-2023 Refill Divine Kaur PATIENT REGISTRATION REPRESENTATIVE-CELEBRITY MANAGER Work Phone: [facility] Comment on above: Med Refill Start: 07-23-2023 End: 07-23-2023 Postop follow up visit related to original px Divine Dougherty Work Phone: [facility] Comment on above: Tear of gluteus mini mus tendon, right, initial encounter (Primary Dx) Start: 07-23-2023 End: 07-23-2023 Subsequent hospital visit by physician Divine Dougherty Work Phone: [facility] Start: 07-23-2023 ambulatory DIVINE DOUGHERTY [facility] Start: 07-17-2023 Refill Mike galloway MD Work Phone: [facility] Comment on above: Med Refill Start: 07-15-2023 End: 07-16-2023 Emergency department patient visit EILEEN BLANTON [facility] Start: 07-15-2023 Telephone encounter Ashia Lema [facility] Start: 07-15-2023 End: 07-15-2023 Emergency department patient visit ELLIOT Nayak RAUDEL [facility] Start: 07-07-2023 End: 2023 Evaluation and management of inpatient Miko Ohara MD Work Phone: [facility] Comment on above: Status post revision of total hip Start: 07-07-2023 End: 2023 Patient encounter status Miko Ohara MD Work Phone: [facility] Start: 07-01-2023 Patient encounter status [facility] Start: 06-19-2023 Telephone encounter Jacqueline Sparrow RN [facility] Comment on above: Pre op clearance Start: 06-18-2023 End: 06-18-2023 Office outpatient visit 40 minutes Miko Ohara MD Work Phone: [facility] Comment on above: Right hip pain (Prim hayden Dx) Start: 06-08-2023 End: 06-08-2023 ambulatory Daisy Liz MD Facility:[facility] Start: 06-02-2023 End: 06-02-2023 Office outpatient visit 25 minutes Donna Diaz MD Work Phone: [facility] Comment on above: Paroxysmal atrial fi brillation (CMS-HCC) (Primary Dx); Primary hypertension; Chronic coronary artery disease Start: 06-02-2023 End: 06-02-2023 ambulatory DONNA DIAZ [facility] Start: 05-25-2023 End: 05-25-2023 ambulatory Daisy Liz MD Facility:[facility] Start: 05-18-2023 End: 05-18-2023 ambulatory Daisy Liz MD Facility:[facility] Start: 05-14-2023 End: 05-14-2023 Office outpatient new 30 minutes Miko Ohara MD Work Phone: [facility] Comment on above: Pain in prosthetic j oint, initial encounter (Primary Dx); Primary osteoarthritis of right hip Start: 05-14-2023 End: 05-14-2023 Subsequent hospital visit by physician Miko Ohara MD Work Phone: [facility] Start: 03-30-2023 (Televisit) Televisit [facility] Start: 03-30-2023 End: 03-30-2023 ambulatory Elliot Starks Other [employer] Other Start: 02-11-2023 End: 02-11-2023 Patient encounter procedure Alfreda Suzanne Miller [facility] Start: 12-29-2022 Preoperative state Donna franks MD Work Phone: [facility] [employer] [facility] Start: 11-17-2022 End: 11-17-2022 ambulatory Elliot Starks Other [employer] Other Start: 11-17-2022 Telephone encounter Elliot Starks [facility] Start: 10-30-2022 End: 10-30-2022 ambulatory Elliot Starks Other [employer] Other Start: 10-30-2022 Office outpatient vi sit 15 minutes Elliot Starks [facility] Start: 10-29-2022 End: 10-29-2022 ambulatory Elliot Starks Other [employer] Other Start: 10-29-2022 Telephone encounter Elliot Starks [facility] Start: 10-27-2022 Nursing evaluation o f patient and report Elliot Starks [facility] Start: 10-27-2022 End: 10-27-2022 ambulatory Elliot Starks [employer] Other Start: 10-27-2022 End: 10-27-2022 Departed Referred MD Elliot Starks Work Phone: [facility] Work Phone: Start: 09-11-2022 Telephone encounter Matt Duron Hematology/Oncology Comment on above: Orders Start: 08-11-2022 End: 08-11-2022 ambulatory Elliot Starks Other [employer] Other Start: 08-11-2022 Nursing evaluation o f patient and report Elliot Starks [facility] Start: 07-17-2022 (Televisit) Televisit [facility] Start: 07-17-2022 End: 07-17-2022 ambulatory Elliot Starks Other [employer] Other Start: 06-23-2022 End: 06-23-2022 ambulatory Elliot Starks Other [employer] Other Start: 06-23-2022 Nursing evaluation o f patient and report Elliot Starks [facility] Start: 06-09-2022 End: 06-09-[address] ELLIOT STARKS Facility: Start: 06-06-2022 End: 06-06-2022 ambulatory Elliot Starks Other [employer] Other Start: 06-06-2022 Telephone encounter Elliot Starks [facility] Start: 06-04-2022 End: 06-04-2022 ambulatory Elliot Starks Other [employer] Other Start: 06-04-2022 Office outpatient vi sit 25 minutes Elliot Starks [facility] Start: 05-21-2022 End: 05-21-2022 ambulatory Elliot Starks Other [employer] Other Start: 05-21-2022 Telephone encounter Elliot Starks [facility] Start: 04-26-2022 End: 04-26-[address] ELLIOT STARKS Facility:[facility] Start: 04-14-2022 End: 04-14-[address] ELLIOT STARKS Facility:[facility] Start: 12-18-2021 End: 12-18-2021 ambulatory Melchor Rivera Facility:[facility] Start: 10-03-2021 Telephone encounter Andrew black MD Work Phone: Hematology/Oncology Comment on above: Lab Orders Start: 09-26-2021 Telephone encounter Mikaela jimenez RN Work Phone: Hematology/Oncology Comment on above: Radiology Mammogram Start: 12-02-2016 End: 12-03-2016 Ambulatory DEFAULT PHYSICIAN Facility:[facility] Procedures Date Procedure Procedure Detail Performing Clinician Start: 2023 Basic metabolic pane l calcium total Chance Mahoney MD Work Phone: Start: 2023 Complete blood count with white cell differential, automated Paula Barrera APRN-CELEBRITY MANAGER Work Phone: Start: 07-07-2023 Cultyp nuc acid amp prb cult/isolate ea orgnism Chance Mahoney MD Work Phone: Start: 07-07-2023 Radiologic examinati on pelvis 1/2 views Paula Barrera PATIENT REGISTRATION REPRESENTATIVE-CELEBRITY MANAGER Work Phone: Start: 07-07-2023 Cell count miscellan [...] MD Work Phone: Start: 09-25-2020 Mammography Mikaela jimenze RN Work Phone: Start: 10-07-2019 Adult depression [...] Adult BMI Screening Adult BMI Screen ing [facility] Start: 11-25-2024 Tobacco Screening Tobacco Screening [facility] Start: 09-29-2024 Adult BMI Screening Adult BMI Screen ing [facility] Start: 09-29-2024 Screening for malign ant neoplasm of breast MAMMOGRAM SCREENING DISCUSSION [facility] Start: 08-11-2024 Adult BMI Screening Adult BMI Screen ing [facility] Start: 08-11-2024 Tobacco Screening Tobacco Screening [facility] Start: 07-14-2024 Tobacco Screening Tobacco Screening [facility] Start: 07-14-2024 End: 07-14-2024 Patient encounter procedure 07/14/2024 11:20 AM EDT Office Visit [facility] [address] [place] [address] Miko Ohara MD [address] [place] [address] [facility] Start: 07-07-2024 Potassium [Moles/vol ume] in Serum or Plasma POTASSIUM [facility] Start: 06-02-2024 Adult BMI Screening Adult BMI Screen ing [facility] Start: 06-02-2024 Tobacco Screening Tobacco Screening [facility] Start: 02-16-2024 End: 02-16-2024 Patient encounter procedure 02/16/2024 11:00 AM EDT Office Visit [facility] [address] [address] Sheridan Reyes MD [address] [place] [address] [facility] Start: 01-03-2024 COVID-19 Vaccine ( season) COVID-19 Vaccine ( season) [facility] Start: 01-03-2024 COVID-19 Vaccine ( season) COVID-19 Vaccine ( season) [facility] Start: 01-03-2024 Influenza vaccination [facility] Start: 11-26-2023 End: 11-26-2023 Patient encounter procedure [facility] Start: 10-09-2023 DIABETES SCREEN DIABETES SCREEN [facility] Start: 10-09-2023 Diabetes Screening Diabetes Screenin g [facility] Start: 08-20-2023 End: 08-20-2023 Patient encounter procedure 08/20/2023 2:30 PM EDT Office Visit [facility] [address] [place] [id number] Divine Dougherty [address] [place] [id number] [facility] Start: 08-12-2023 End: 08-12-2023 Patient encounter procedure 08/12/2023 8:00 AM EDT Office Visit [facility] [address] [address] Miko Vasquez, PATIENT REGISTRATION REPRESENTATIVE-CELEBRITY MANAGER [address] [place] [address] [facility] Start: 07-23-2023 End: 07-23-2023 Patient encounter procedure 07/23/2023 2:30 PM EDT Office Visit [facility] [address] [place] [id number] Divine Dougherty [address] [place] [id number] [facility] Start: 07-07-2023 End: 07-07-2023 Evaluation and management of inpatient [facility] Comment on above: Tear of rotator [...] initial encounter 07/07/2023 12:25 PM EST [facility] Start: 06-25-2023 End: 06-25-2023 Admission to establishment 06/25/2023 10:00 AM EST Pre-Operative Nurse Assessment [facility] Pre Admission [address] [place] [address] Pre-op testing (Primary Dx); Essential (primary) hypertension; Abnormal finding of blood chemistry, unspecified; Abnormal coagulation profile [facility] Comment on above: Pre-op testing (Prim hayden Dx); Essential (primary) hypertension; Abnormal finding of blood chemistry, unspecified; Abnormal coagulation profile Start: 06-13-2023 COVID-19 Vaccine () COVID-19 Vaccine () [facility] Start: 05-28-2023 End: 05-28-2023 Patient encounter procedure 05/28/2023 11:00 AM EST Office Visit [facility] [address] [place] [address] Peter Gardiner, DO [address] [place] [address] [facility] Start: 05-14-2023 End: 05-14-2024 MR Hip - right WO contrast MRI HIP RIGHT WITHOUT CONTRAST Imaging Routine Pain in prosthetic joint, initial encounter Expected: 05/14/2023, Expires: 05/14/2024 [facility] Comment on above: Expected: 05/14/2023 , Expires: 05/14/2024 Start: 05-04-2023 Advance Directive Discussion Advance Directive Discussion [facility] Start: 05-04-2023 Behavioral Health Screening Behavioral Health Screening [facility] Start: 01-02-2023 Covid-19 Vaccine () Covid-19 Vaccine () [facility] Start: 01-02-2023 COVID-19 VACCINE () COVID-19 VACCINE () [facility] Start: 01-02-2023 Influenza vaccination INFLUENZA (Sea son Ended) [facility] Start: 10-27-2022 Bacteria identified in Urine by Culture [facility] Start: 05-04-2022 ADVANCE DIRECTIVE DISCUSSION ADVANCE DIRECTIVE DISCUSSION [facility] Start: 05-04-2022 DEPRESSION ASSESSMENT DEPRESSION ASS ESSMENT [facility] Start: 04-08-2022 Screening for malign ant neoplasm of colon Colonoscopy [facility] Start: 01-02-2022 Influenza vaccination INFLUENZA (Sea son Ended) [facility] Start: 10-07-2021 End: 12-07-2021 Cancer Ag 27-29 [Units/volume] in Serum or Plasma CA 27.29 BLOOD Lab Routine Malignant neoplasm of upper-outer quadrant of left breast in female, estrogen receptor positive (HCC) Expected: 10/07/2021, Expires: 12/07/2021 [facility] Work Phone: Comment on above: Expected: 10/07/2021 , Expires: 12/07/2021 Start: 10-07-2021 End: 12-07-2021 CBC W Auto Differential panel - Blood CBC + DIFF Lab Routine Malignant neoplasm of upper-outer quadrant of left breast in female, estrogen receptor positive (HCC) Expected: 10/07/2021, Expires: 12/07/2021 [facility] Work Phone: Comment on above: Expected: 10/07/2021 , Expires: 12/07/2021 Start: 10-07-2021 End: 12-07-2021 Comprehensive metabolic 2000 panel - Serum or Plasma COMP METABOLIC PANEL Lab Routine Malignant neoplasm of upper-outer quadrant of left breast in female, estrogen receptor positive (HCC) Expected: 10/07/2021, Expires: 12/07/2021 [facility] Work Phone: Comment on above: Expected: 10/07/2021 , Expires: 12/07/2021 Start: 09-25-2021 Mammography MAMMOGRAM [facility] Start: 05-04-2021 ADVANCE DIRECTIVE DISCUSSION ADVANCE DIRECTIVE DISCUSSION [facility] Start: 11-17-2020 COVID-19 VACCINE (3 - Booster for Pfizer series) COVID-19 VACCINE (3 - Booster for Pfizer series) [facility] Start: 10-06-2020 Adult depression screening assessment DEPRESSION SCREENING [facility] Start: 08-15-2020 COVID-19 VACCINE (3 - Booster for Pfizer series) COVID-19 VACCINE (3 - Booster for Pfizer series) [facility] Start: 01-05-2019 Pneumococcal Vaccine : 65+ (2 of 2 - PCV) Pneumococcal Vaccine: 65+ (2 of 2 - PCV) [facility] Start: 01-05-2019 PNEUMOCOCCAL: 65+ (2 - PCV) PNEUMOCOCCAL: 65+ (2 - PCV) [facility] Start: 07-07-2012 BONE DENSITY BONE DENSITY [facility] Start: 07-07-2012 Fall Risk Screening Fall Risk Screen ing [facility] Start: 07-07-2012 Screening for osteoporosis Bone Density Screening [facility] Start: 2007 RSV Vaccine (1 - 1-d ose 60+ series) RSV Vaccine (1 - 1-dose 60+ series) [facility] Start: 07-07-1997 Administration of varicella zoster vaccine Zoster (Shingles) Vaccine (1 of 2) [facility] Start: 07-07-1997 SHINGRIX VACCINE (1 of 2) SHINGRIX VACCINE (1 of 2) [facility] Start: 07-07-1997 Zoster vaccine hzv l david for subcutaneous use ZOSTER (SHINGLES) VACCINE (1 of 2) [facility] Start: 07-07-1992 COLOGUARD (FIT-DNA) COLOGUARD (FIT-D NA) [facility] Start: 07-07-1992 Colonoscopy COLONOSCOPY [facility] Start: 07-07-1992 COLORECTAL CANCER SCREENING COLORECTAL CANCER SCREENING [facility] Start: 07-07-[address] COLONOGRAPHY [facility] Start: 07-07-1992 FECAL OCCULT BLOOD FECAL OCCULT BLOO D [facility] Start: 07-07-1992 LIPID SCREEN LIPID SCREEN [facility] Start: 07-07-1992 Screening for malign ant neoplasm of colon COLORECTAL CANCER SCREENING DISCUSSION [facility] Start: 07-07-1992 SIGMOIDOSCOPY SIGMOIDOSCOPY [facility] Start: 1987 Lipid panel LIPID SCREENING [facility] Start: 1987 Screening for malign ant neoplasm of breast MAMMOGRAM SCREENING DISCUSSION [facility] Start: 07-07-1968 Screening for malign ant neoplasm of cervix CERVICAL CANCER SCREENING DISCUSSION [facility] Start: 07-07-1966 DTaP,Tdap and Td Vaccines (1 - Tdap) DTaP,Tdap and Td Vaccines (1 - Tdap) [facility] Start: 07-07-1966 Third diphtheria, tetanus and acellular pertussis (DTaP) vaccination TDAP (ADULT) [facility] Start: 07-07-1966 Urine microalbumin profile [facility] Start: 07-07-1965 Adult BMI Follow Up Plan Adult BMI F ollow Up Plan [facility] Start: 07-07-1965 HEPATITIS C SCREENING HEPATITIS C SC REENING [facility] Start: 1959 Depression Screening Depression Scre ening [facility] Start: 07-07-1953 PNEUMOCOCCAL: 65+ (1 - PCV) PNEUMOCOCCAL: 65+ (1 - PCV) [facility] Start: 1947 Hepatitis C screening HEPATITI S C VIRUS SCREENING [facility] Start: 1947 Medicare Annual Well ness Visit Medicare Annual Wellness Visit [facility] Start: 1947 Potassium [Moles/vol ume] in Serum or Plasma POTASSIUM [facility] Start: 1947 Screening for osteoporosis DEXA SCAN DISCUSSION [facility] Start: 1947 Tetanus vaccination TETANUS [facility] ANAEROBE CULTURE [facility] Comment on above: Release Upon Orderin g for 1 Occurrences starting 07/07/2023 Bacterial culture an d sensitivity CULTURE WOUND Microbiology Routine 07/07/2023 2:27 PM EST [facility] BODY FLUID CELL COUNT BODY FLUID CELL COUNT Fluids Routine Tear of rotator cuff of right hip, initial encounter 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, initial encounter Release Upon Ordering for 1 Occurrences starting 07/07/2023 [facility] Comment on above: Release Upon Orderin g for 1 Occurrences starting 07/07/2023 End: 10-16-2024 DBT Breast - bilateral screening SHANE SCREENING [facility] Radiology Routine Encounter for screening mammogram for malignant neoplasm of breast 1 Occurrences starting 09/17/2023 until 10/16/2024 [facility] Work Phone: Comment on above: 1 Occurrences starti ng 09/17/2023 until 10/16/2024 End: 07-07-2023 Fungus identified in Unspecified specimen by Culture [facility] Comment on above: Release Upon Orderin g for 1 Occurrences starting 07/07/2023 One Time for 1 Occur rences starting 07/07/2023 until 07/07/2023 End: 10-26-2022 SHANE SCREENING W YAW [facility]ANE SCREENING [facility] Radiology Routine Encounter for screening mammogram for malignant neoplasm of breast 1 Occurrences starting 09/26/2021 until 10/26/2022 [facility] Work Phone: Comment on above: 1 Occurrences starti ng 09/26/2021 until 10/26/2022 End: 10-11-2023 SHANE SCREENING W YAW SHANE SCREENING [facility] Radiology Routine Encounter for screening mammogram for malignant neoplasm of breast 1 Occurrences starting 09/11/2022 until 10/11/2023 [facility] Work Phone: Comment on above: 1 Occurrences starti ng 09/11/2022 until 10/11/2023 End: 07-07-2023 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 [facility] Comment on above: Release Upon Orderin g for 1 Occurrences starting 07/07/2023 One Time for 1 Occur rences starting 07/07/2023 until 07/07/2023 XR Pelvis and Hip - right Views XR HIP WITH PELVIS RIGHT Imaging Routine Primary osteoarthritis of right hip 05/14/2023 9:20 AM [facility] [employer] Work Phone: XR Pelvis and Hip - right Views XR HIP WITH PELVIS RIGHT Imaging Routine Tear of gluteus minimus tendon, right, initial encounter 07/23/2023 2:22 PM EDT [employer] [facility] XR Pelvis and Hip - right Views XR HIP WITH PELVIS RIGHT Imaging Routine Right hip pain 08/20/2023 3:17 PM EDT [employer] [facility] XR Pelvis and Hip - right Views XR HIP WITH PELVIS RIGHT Imaging Routine Hx of total hip arthroplasty, right 11/26/2023 1:53 PM EDT [employer] XR Pelvis and Hip - right Views XR HIP WITH PELVIS RIGHT Imaging Routine Hx of total hip arthroplasty, right 07/14/2024 1:07 PM EDT [facility] Immunizations Immunization Date Immunization Notes Care Provider Pablo wheat 02-08-2024 influenza virus vaccine, unspecified formulation Maria E Osman [facility] 02-10-2023 influenza virus vaccine, unspecified formulation Alfreda Lue [facility] 02-01-2022 influenza virus vaccine, unspecified formulation Alfreda Lue [facility] 08-13-2021 SARS-CoV-2 mRNA (jifpihqvfnd-vnjh-cgrbi se) vaccine Alfreda Lue [facility] 01-29-2021 SARS-CoV-2 (COVID-19 ) mRNA BNT-162b2 vax Alfreda Lue [facility] Comment on above: Result Comment: 2022: [id number] 06-20-2020 COVID-19 vaccine, ag e 12+ yr (PFIZER-BIONTECH - PURPLE TOP) Mikaela Thompson RN Work Phone: [facility] 05-28-2020 SARS-CoV-2 (COVID-19 ) mRNA BNT-162b2 vax Alfreda Lue [facility] 05-18-2020 COVID-19 vaccine, ag e 12+ yr (PFIZER-BIONTECH - PURPLE TOP) Mikaela Thompson RN Work Phone: [facility] 01-27-2020 influenza virus vaccine, split virus (incl. purified surface antigen) Elliot Starks Other [employer] Other 01-27-2020 influenza virus vaccine, unspecified formulation Alfreda Lue [facility] 01-20-2019 influenza virus vaccine, unspecified formulation Alfreda Lue [facility] 01-20-2019 influenza, high dose seasonal, preservative-free Mikaela Thompson RN Work Phone: [facility] 03-09-2018 influenza virus vaccine, unspecified formulation Alfreda Lue [facility] 01-05-2018 influenza virus vaccine, split virus (incl. purified surface antigen) Elliot Starks Other [employer] Other 01-05-2018 influenza virus vaccine, unspecified formulation Alfreda Lue [facility] 01-05-2018 influenza, high dose seasonal, preservative-free Mikaela Thompson RN Work Phone: [facility] 01-05-2018 pneumococcal polysaccharide vaccine, 23 valent Mikaela Thompson RN Work Phone: [facility] 02-25-2017 influenza virus vaccine, unspecified formulation Alfreda Lue [facility] 02-17-2017 pneumococcal polysaccharide vaccine, 23 valent Alfreda Lue [facility] 02-05-2017 influenza virus vaccine, split virus (incl. purified surface antigen) Elliot Starks Other [employer] Other 02-05-2017 influenza virus vaccine, unspecified formulation Alfreda Lue [facility] 02-05-2017 pneumococcal conjuga te vaccine, 13 valent Alfreda Lue [facility] 02-01-2002 pneumococcal polysaccharide vaccine, 23 valent Elliot Starks Other [facility] Payers Date Payer Category Payer Private Health Insurance 2023 Medicare (Managed Care) MEDICARE [employer] PPO [id number] 2022 Self-pay 2021 Medicare O [employer] MEDICARE [id number] 2014 Medicare AET MEDICARE A ETNA MEDICARE O [id number] 2014-Present [phone] [address] [place] [address] [facility] [id number] 2014 Medicare [id number]. [id number] 1959 Medicare [id number] 1945 Unknown [id number] 2.16.840.1.574285.3.579.2. 593 1945 Unknown [id number] 2.16.840.1.997001.3.579.2. 593 1945 Unknown [id number] 2.16.840.1.442314.3.579.2. 593 1945 Unknown [id number] 2.16.840.1.635007.3.579.2. 718 1945 Unknown [id number] 2.16.840.1.645118.3.579.2. 1286 1947 Unknown [id number] 2.16.840.1.366340.3.579.2. 1286 1945 Unknown [id number] 2.16.840.1.916635.3.579.2. 128 1945 Unknown [id number] 2.16.840.1.200938.3.579.2. 1286 1947 Unknown [id number] 2.16.840.1.193875.3.579.2. 1286 1947 Unknown [id number] 2.16.840.1.604934.3.579.2. 196 1945 Unknown [id number] 2.16.840.1.869522.3.579.2. 196 1945 Unknown [id number] 2.16.840.1.385943.3.579.2. 196 1945 Unknown [id number] 2.16.840.1.163088.3.579.2. 196 1947 Unknown [id number] 2.16.840.1.303007.3.579.2. 196 1947 Unknown [id number] 2.16.840.1.204622.3.579.2. 727 1945 Unknown [id number] 2.16.840.1.009183.3.579.2. 727 1947 Unknown [id number] 2.16.840.1.383610.3.579.2. 727 1947 Unknown [id number] 2.16.840.1.606054.3.579.2. 983 1945 Unknown [id number] 2.16.840.1.786407.3.579.2. 983 1945 Unknown [id number] 2.16.840.1.632393.3.579.2. 983 1945 Unknown [id number] 2.16.840.1.601292.3.579.2. 983 1945 Unknown [id number] 2.16.840.1.317540.3.579.2. 983 1945 Unknown [id number] 2.16.840.1.663167.3.579.2. 983 1945 Unknown [id number] 2.16.840.1.620788.3.579.2. 983 1945 Unknown [id number] 2.16.840.1.097441.3.579.2. 983 Private Health Insurance [employer] [facility] [id number] Unknown Unknown [id number] 2.16.840.1.786778.3.579.2. 531 Social History Date Type Detail Facility Start: 12-03-2015 End: 06-22-2024 Tobacco smoking status NHIS Ex-smoker [facility] End: 12-05-1990 History of tobacco use Current smoker [facility] Start: 12-03-2015 End: 07-07-2023 Cigarettes smoked current (pack per day) - Reported 1 [facility] Start: 12-03-2015 End: 05-14-2023 Tobacco use and exposure Smokeless tobacco non-user [facility] Start: 10-08-2020 End: 07-14-2024 Alcohol intake Current drinker of alcohol (finding) [facility] Start: 1945 Sex Assigned At Not on file C [facility] Start: 05-14-2023 End: 07-07-2023 Sex Assigned At [facility] End: 12-05-1990 History of tobacco use Cigarette Smoker [facility] Start: 1945 Sex Assigned At Female F [facility] Tobacco smoking status Never [facility] Start: 05-14-2023 Tobacco smoking stat us NHIS Never smoked tobacco [facility] Has the [employer], [employer], or water Advisity threatened to shut off services in your home in past 12Mo No [employer] [facility] (I/We) worried malathi er (my/our) food would run out before (I/we) got money to buy more. Never true [employer] [facility] Start: 03-19-2017 End: 06-19-2023 Alcohol Comment social [facility] Start: 07-22-2018 End: 05-09-2024 Sex Female (finding) [facility] Start: 03-31-2022 Tobacco Comment quit in 1989 [facility] Start: 05-09-2018 Gender identity Identifies as female gender (finding) [facility] Sexual Orientation [facility] Medical Equipment Procedure Code Equipment Code Equipment Origin al Text Equipment Identifier Dates Anchors, 5.5 Non Punching - [id number] Start: 07-07-2023 Anchors, 5.5 Non Punching - [id number] Start: 07-07-2023 Functional Status Date Assessment Result Facility 06-22-2024 Functional Status N/A [facility] 07-07-2023 Are you deaf, or do you have serious difficulty hearing No 07/07/2023 4:30 PM Marcella Muñoz RN [facility] 07-07-2023 Are you blind, or do you have serious difficulty seeing, even when wearing glasses No 07/07/2023 4:30 PM Marcella Muñoz RN No [facility] 07-07-2023 Do you have serious difficulty walking or climbing stairs No 07/07/2023 4:30 PM Marcella Muñoz RN No [facility] 07-07-2023 Do you have difficul ty dressing or bathing No 07/07/2023 4:30 PM Marcella Muñoz, RICARDO [facility] 07-07-2023 Because of a physica l, mental, or emotional condition, do you have difficulty doing errands alone such as visiting a physician's office or shopping No 07/07/2023 4:30 PM Marcella Muñoz, RICARDO No [employer] [facility] 02-11-2023 Functional Status N/A [facility] Mental Status Date Assessment Result Facility 07-07-2023 Because of a physica l, mental, or emotional condition, do you have serious difficulty concentrating, remembering, or making decisions No 07/07/2023 4:30 PM Marcella Muñoz, RICARDO No [facility] Clinical Notes 09-26-2021 to 07-14-2024 Svitlana Hayden - 07/14/2024 2:00 PM Kishore Barrera APRN-AUSTEN - 07/14/2024 2:00 PM EDTTelephone Encounter - Mami Cifuentes RN - 06/30/2024 12:22 AM EST Note Date & Type Note Facility 07-14-2024 History of Presen t illness Narrative Ortho Nurse - Established Patient Intake Room#: 5 Date: 07/14/2024 1:15 PM Patient: Bettie Burns MR#: [id number] : 1945 Age: 79 y.o. 1yr R [...] LUMPECTOMY FOOT SURGERY HEART CATHETERIZATION no stents FL ENDOMETRIAL CRYOABLATION W/US & ENDOMETRIAL CR REMOVAL [...] 1 month, then 2x/week for maintainence, [facility]/pharm[facility] #[id number], 165, cm, 02/11/23 10:41:00 EDT, Height/Length Dosing, [...] 1 month, then 2x/week for maintainence, [facility]/pharm[facility] #[id number], 165, cm, 02/11/23 10:41:00 EDT, Height/Length Dosing, [...] face to face time with patient. Paula Barrera, TABITHA-CELEBRITY MANAGER I have reviewed the findings of my clinical staff below and agree with their assessment. Ortho Nurse - Established Patient Intake Room#: 5 Date: 07/14/2024 1:15 PM Patient: Bettie Burns MR#: [id number] : 1945 Age: 79 y.o. 1yr R [...] Laterality: Right; Surgeon: Miko Ohara MD; Location: [facility] O[facility] OR REVISION ARTHROPLASTY HIP BOTH ACETABULAR & FEMORAL COMPONENTS Right 07/07/2023 Laterality: Right; Surgeon: Miko Ohara MD; Location: [facility] OR HIP REPLACEMENT 2021 ABLATION NERVE RADIOFREQUENCY PULSED 09/2018 for a-fib with [facility] APPENDECTOMY BREAST LUMPECTOMY FOOT SURGERY HEART CATHETERIZATION no stents FL ENDOMETRIAL CRYOABLATION W/US & ENDOMETRIAL CR REMOVAL [...] 1 month, then 2x/week for maintainence, [facility][id number], 165, cm, 02/11/23 10:41:00 EDT, Height/Length [...] 1 month, then 2x/week for maintainence, [facility] #[id number], 165, cm, 02/11/23 10:41:00 EDT, Height/Length [...] penicillins, and tramadol. documented in this encounter [facility] 06-30-2024 Miscellaneous Notes OV 11/26/2023 documented in this encounter [facility] 06-30-2024 Telephone encounter Note OV 11/26/2023 [facility] 06-22-2024 Hospital Discharg e instructions Patient Education [...] Follow these instructions at home: Medicines Take ijqv-msz-ltkikva and prescription medicines only as told by [...] or the blood stops without treatment. Take fdwu-ozl-rnudhzi and prescription medicines only as told by your health care provider. Drink enough fluid to keep your urine pale yellow. This information is not intended to replace advice given to you by your health care provider. Make sure you discuss any questions you have with your health care provider. Document Revised: 12/19/2020 Document Reviewed: 12/19/2020 [employer] Patient Education 2023 Numerous. 06/22/2024 15:04:17 Overactive Bladder, Adult Overactive Bladder, [...] your health care provider. General instructions Take kmjt-jtw-ofulcfz and prescription medicines only as told by [...] provider. Document Revised: 01/07/2021 Document Reviewed: 01/07/2021 [employer] Patient Education 2023 Numerous. Follow Up Care 06/22/2024 10:24:57 With:Alfreda Miller MD, URL, URO Address: When: Unknown Comments:F/U pending cystoscopy [facility] Jason 06-22-2024 Note Patient Education Obstetrics and Gynecology [...] health care provider. General instructions ??? Take ikdy-ysm-hfermgh and prescription medicines only as told by [...] drink, and whe (more content not included)... [facility] 04-30-2024 Evaluation note Diagnosis Onset Date Resolution Acute bilateral otitis media acute April 30, 2 024 9:54am [facility] Work Phone: 1(760) 888-506112-28-2024 Evaluation note* Diagnosis Onset Date Resolution Status Admit Date Acute bilateral otitis media acute April 30, 2024 9:54am Acute otitis media with effusion acute May 09 9:07am Insomnia acute May 09 025 9:07am Reaction, situational, acute , to stress acute May 09 9:07am [facility] Work Phone: 1(962) 128-589808-31-2024 Miscellaneous Notes* Telephone Encounter - Jacinta Neri [...] Low 56 Low CM documented in this [facility] Telephone encounter Note* Telephone Encounter - [...] >59 ml/min/1.73sq.m 46 Low 56 Low CM [facility] [id number] History of Present illness Narrative* Hal Fischer - 11/26/2023 2:00 PM EDT Ortho Nurse - Established Patient Intake Room#: 3 --- Patient presents today for 4 month follow-up of RTHA. Patient states that pain is 2/10today. Patient states that she is improved especially with PT, but is still limping more than she anticipated. Patient has been doing PT at [facility] and this helps, says next week is her last session. Patient states that she is due for nerve block in SI joint at [facility] who she seesregularly, states that she needs approval from Dr. Ohara on this. Date: 11/26/2023 2:25 PM Patient: Bettie Burns MR#: [id number] : 1945 Age: 78 y.o. Referring Physician: [...] LUMPECTOMY FOOT SURGERY HEART CATHETERIZATION no stents FL ENDOMETRIAL CRYOABLATION W/US & ENDOMETRIAL CR REMOVAL [...] 1 month, then 2x/week for maintainence, [facility] #[id number], 165, cm, 02/11/23 10:41:00 EDT, Height/Length Dosing, [...] 1 month, then 2x/week for maintainence, [facility] #[id number], 165, cm, 02/11/23 10:41:00 EDT, Height/Length [...] anticipated. Patient has been doing PT at [facility] and this helps, says next week is her last session. Patient states that she is due for nerve block in SI joint at [facility] who she seesregularly, states that she needs approval from Dr. Ohara on this. Date: 11/26/2023 2:25 PM Patient: Bettie Burns MR#: [id number] : 1945 Age: 78 y.o. Referring Physician: [...] LUMPECTOMY FOOT SURGERY HEART CATHETERIZATION no stents FL ENDOMETRIAL CRYOABLATION W/US & ENDOMETRIAL CR REMOVAL [...] 1 month, then 2x/week for maintainence, [facility] #[id number], 165, cm, 02/11/23 10:41:00 EDT, Height/Length Dosing, [...] 1 month, then 2x/week for maintainence, [facility] #[id number], 165, cm, 02/11/23 10:41:00 EDT, Height/Length [...] oxycodone, penicillins, and tramadol. [facility] History of Present illness Narrative* Mainor [...] Burns was seen in follow-up in the [place] office. Records are reviewed. She is a [...] avoidance. Past Medical History: Diagnosis Date A-fib ([facility]) hx of Arrhythmia 12/2016 ATRIAL FIBRILLATION Arthritis Breast cancer ([facility]) 11/14/2015 LEFT COVID-19 03/2020 History of bleeding ulcers Hypertension Migraines Pneumonia d/t covid Prolonged emergence from general anesthesia Visual impairment glasses No data recorded No data recorded No data recorded Past Surgical History: Procedure Laterality Date ABLATION OF DYSRHYTHMIC FOCUS Right nerve ablation, L4 and L5 Afib ablation with SHANICE - CRYO, Rhythmia, ICE N/A 09/28/2018 Performed by Amber Quiñonez MD at [facility] () ARTHROSCOPY REPAIR ROTATOR CUFF SHOULDER Right 05/16/2020 Performed by Melchor Rivera DO at [facility] ARTHROSCOPY SHOULDER Right 05/16/2020 Performed by Melchor Rivera DO at [facility] BREAST BIOPSY Left 2015 BREAST LUMPECTOMY Left 11/14/2015 WITH RADIATION BREAST SURGERY Left 2012 lumpectomy CATARACT EXTRACTION CHOLECYSTECTOMY COLONOSCOPY Coronary angiogram and left ventricular gram/pressure N/A 08/08/2021 Performed by Bertram Lal MD at [facility] CARDIAC CATH LABS EYE SURGERY lids [...] Needs: No Transportation Needs (07/07/2023) Received from [facility], [facility] PRAPARE - Transportation Lack of Transportation (Medical): No Lack of Transportation (Non-Medical): No Physical Activity: Not on file Stress: Not on file Social Connections: Not on file Interpersonal Safety: Not on file Housing Instability: Low Risk (07/07/2023) Received from [facility], [facility] Housing Stability Vital Sign Unable to Pay for Housing in the Last Year: No Number of Places Lived in the Last Year: 1 In the last 12 months, was there a time when you did not have a steady place to sleep or slept in [place] (including now)?: No Review of Systems Review [...] STARKS MD Referring Physician: Elliot Starks MD [id number] [place] [address] documented in this encounterAs[facility]ula [facility]07-[facility]24 Miscellaneous Notes* Telephone Encounter - Medina Jaramillo MA - 11/25/2023 10:56 AM EDT Called patient to remind them to bring their most current copy of their medication list with them to their appt. Patient verbalizes understanding. documented in this encounterAshtabula [facility] Hospital07-24-2024 Telephone encounter Note* Telephone Encounter - Medina Jaramillo MA - 11/25/2023 10:56 AM EDT Called patient to remind them to bring their most current copy of their medication list with them to their appt. Patient verbalizes understanding. [facility]06-17-2024 Miscellaneous Notes* Telephone Encounter - Jacinta Neri RN - 10/19/2023 9:19 AM EDT Last OV 08/25 CMP 07/25 documented in this encounterAshtabula [facility] Hospital06-17-2024 Telephone encounter Note* Telephone Encounter - Jacinta Neri RN - 10/19/2023 9:19 AM EDT Last OV 08/25 CMP 07/25 [facility]05-16-2024 Telephone encounter Note* Telephone Encounter - Matt Adams RN - 09/17/2023 1:30 PM EDT Order faxed to Torey Julio Pt aware. Matt Adams RN [facility]05-16-2024 Miscellaneous Notes* Telephone Encounter - Matt Adams RN - 09/17/2023 1:30 PM EDT Order faxed to Torey Julio Pt aware. Matt Adams RN * Telephone Encounter - Matt Adams RN - 09/17/2023 10:18 AM EDT Pt called to request yearly Mammogram order I have pended order as previously completed Pt requests to fax to Nori Lema [phone] BR/: please review and sign if agreeable Matt Adams RN documented in [facility] encounterMer[facility] Telephone encounter Note * Telephone Encounter - Matt Adams RN - 09/17/2023 10:18 AM EDT Pt called to request yearly Mammogram order I have pended order as previously completed Pt requests to fax to Nori Lema [phone] BR/: please review and sign if agreeable Matt Adams RN [facility]04-18-2024 History of Present illness Narrative* Eva [...] she is interested in Physcial Therapy through [facility]. Date: 08/20/2023 2:38 PM Patient: Bettie Burns MR#: [id number] : 1945 Age: 78 y.o. Referring Physician: Self, Self Insurance: Payor: [employer]ARE [employer] H[employer] OR PPO / Plan: MEDICARE [employer] PPO / Product Type: *No Product type* [...] LUMPECTOMY FOOT SURGERY HEART CATHETERIZATION no stents FL ENDOMETRIAL CRYOABLATION REMOVAL BILIARY DUCT/GALLBLADDER CALCULI/DEBRIS PERCUTANEOUS [...] 1 month, then 2x/week for maintainence, [facility] #[id number], 165, cm, 02/11/23 10:41:00 EDT, Height/Length [...] arise. All pertinant portions of the clinical support representative documentation was reviewed and I agree with [...] she is interested in Physcial Therapy through [facility]. Date: 08/20/2023 2:38 PM Patient: Bettie Burns MR#: [id number] : 1945 Age: 78 y.o. Referring Physician: [...] Laterality: Right; Surgeon: Miko Ohara MD; Location: [facility] OR REVISION ARTHROPLASTY HIP BOTH ACETABULAR & FEMORAL COMPONENTS Right 07/07/2023 Laterality: Right; Surgeon: Miko Ohara MD; Location: [facility] OR HIP REPLACEMENT 2021 ABLATION NERVE RADIOFREQUENCY PULSED 09/2018 for a-fib with [facility] APPENDECTOMY BREAST LUMPECTOMY FOOT SURGERY HEART CATHETERIZATION no stents FL ENDOMETRIAL CRYOABLATION REMOVAL BILIARY DUCT/GALLBLADDER CALCULI/DEBRIS PERCUTANEOUS [...] 1 month, then 2x/week for maintainence, [facility][id number], 165, cm, 02/11/23 10:41:00 EDT, Height/Length [...] oxycodone, penicillins, and tramadol. documented in this encounterC[facility]04-[facility] Miscellaneous Notes* Telephone Encounter - Ray Wills LPN - 08/10/2023 12:45 AM EDT Theresa 08/12/23 Cmp, mg 07/15/23 documented in this encounterAshtabula [facility]04-08-2024 Telephone encounter Note* Telephone Encounter - Ray Wills LPN - 08/10/2023 12:45 AM EDT Theresa 08/12/23 Cmp, mg 07/15/23 [facility] [id number] History of Present illness Narrative* Eva Landryclair - 07/23/2023 2:30 PM EDT Ortho Nurse [...] 07/23/2023 2:45 PM Patient: Bettie Burns MR#: [id number] : 1945 Age: 78 y.o. Referring Physician: [...] LUMPECTOMY FOOT SURGERY HEART CATHETERIZATION no stents FL ENDOMETRIAL CRYOABLATION REMOVAL BILIARY DUCT/GALLBLADDER CALCULI/DEBRIS PERCUTANEOUS [...] 1 month, then 2x/week for maintainence, [facility] #[id number], 165, cm, 02/11/23 10:41:00 EDT, Height/Length [...] morphine, oxycodone, penicillins, and tramadol. * Divine Cliftonnery - 07/23/2023 2:30 PM EDT MRS Bettie [...] arthrex anchors -Incision was cleansed with Betadine. [place] were removed without issue, steri strip placed. [...] visit. All pertinant portions of the clinical support representative documentation was reviewed. Divine Dougherty I have reviewed the findings of the clinical support representative and agree with their assessment. Divine Dougherty [...] 07/23/2023 2:45 PM Patient: Bettie Burns MR#: [id number] : 1945 Age: 78 y.o. Referring Physician: Divine Dougherty Insurance: Payor: [employer]ARE [employer] H[employer] OR PPO / Plan: MEDICARE [employer] PPO / Product Type: *No Product type* [...] LUMPECTOMY FOOT SURGERY HEART CATHETERIZATION no stents FL ENDOMETRIAL CRYOABLATION REMOVAL BILIARY DUCT/GALLBLADDER CALCULI/DEBRIS PERCUTANEOUS [...] 1 month, then 2x/week for maintainence, [facility] #[id number], 165, cm, 02/11/23 10:41:00 EDT, Height/Length [...] oxycodone, penicillins, and tramadol. documented in this [facility]03-15-2024 Miscellaneous Notes* Telephone Encounter - Estela Bueno RN - 07/17/2023 1:28 AM EDT Dose confirmed with patient documented in this encounterAshtabula [facility] Hospital03-15-2024 Telephone encounter Note* Telephone Encounter - Estela Bueno RN - 07/17/2023 1:28 AM EDT Dose confirmed with patient [facility]03-13-2024 Miscellaneous Notes* Telephone Encounter - Ashia [...] she was willing. slm documented in this encounterAshtabula General Hospital03-13-2024 Telephone encounter Note* Telephone Encounter - [...] the ER and she was willing. slm [facility]03-06-2024 Miscellaneous Notes* Nursing Notes - Dolly [...] 07, 2023 ATTENDING PHYSICIAN: Miko Ohara M.D. 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 PROCEDURE PERFORMED: Unlisted procedure of right hip and pelvis, dual-row suture anchor repair of 100% massive abductor tear of right hip, work equivalent similar to CPT 38323 Periarticular injection of right hip. ANESTHESIA: General. [...] it as a CPT similar to that, 99794. ATTENDING/ASSISTING PARTICIPATION: This operation could not have been safely performed (without compromising the technical results or length of the procedure) without the assistance of a skilled orthopedic assistant. A orthopedic assistant was medically necessary for positioning, retraction [...] OPERATIVE/PROCEDURE NOTE Bettie Burns 77 y.o. female [id number] SURGEON Surgeons and Role: * Miko Ohara MD - Primary SOLE STAINER MEDINA Richardson ANESTHESIOLOGIST DESIGN STUDIO CONSULTANT: Chance Ngo CRNA; Damián Saenz APRN-TREVA SURGICAL STAFF Food Technician: Kisha Karimi RN; Whit Govea, RN Nurse [...] Implant Name Type Inv. Item Serial No. Associate Counsel Lot No. LRB No. Used Action ANCHORS, 5.5 NON PUNCHING - [id number] ANCHORS, 5.5 NON PUNCHING HIST ARTHREX [id number] Right 1 Implanted ANCHORS, 5.5 NON PUNCHING - [id number] ANCHORS, 5.5 NON PUNCHING HIST ARTHREX [id number] Right 3 Implanted SPECIMENS ID Type Source [...] CULTURE Miko Ohara MD 07/07/2023 1434 Paula Barrera APRN-CELEBRITY MANAGER July 07, 2023 3:28 PM * Nursing Notes - Chelsea Bledsoe RN - 07/07/2023 10:52 AM EST Unable to doppler right dorsalis pedis pulse. [facility] Nurse Note* Nursing Notes - Dolly [...] patient discharged home with daughter and . [facility]03[facility] Hospital Discharge instructions* Discharge Instructions* Carmen [...] at all times - Use a leg cylinder press operator to get in and out of bed [...] - 2023 12:01 PM EST Contact Office ([phone]) if: > Any falls or injuries > [...] incision or operative leg. documented in this [facility]03-06-2024 History of Present illness Narrative* Carmen [...] for 07/23/23 @ 2:30 pm. * Divine Deric Dougherty - 2023 7:21 AM EST Total [...] LUMPECTOMY FOOT SURGERY HEART CATHETERIZATION no stents FL ENDOMETRIAL CRYOABLATION REMOVAL BILIARY DUCT/GALLBLADDER CALCULI/DEBRIS PERCUTANEOUS [...] 0 Equipment Available wheeled walker;elevated toilet seat;shower chair;motel front desk attendant Cognitive Status Examination Orientation Status (Cognition) oriented [...] Supine to Sit, Rehab Eval Level of [place]: Supine/Sit stand-by assist Physical Assist/Nonphysical Assist: Supine/Sit 1 person assist Transfer Skill: Sit to Stand, Rehab Eval Level of [place]: Sit/Stand contact guard Physical Assist/Nonphysical Assist: Sit/Stand 1 person assist Weight-Bearing Restrictions: Sit/Stand toe touch weight-bearing Assistive Device for Transfer: Sit/Stand wheeled walker Upper Body Dressing Level of [place] independent Physical Assist/Nonphysical Assist set-up required Lower Body Dressing Level of [place] maximum assist (25% patients effort) Physical Assist/Nonphysical Assist 1 person assist Assistive Device motel front desk attendant General Therapy Interventions Planned Therapy Interventions (OT Eval) ADL retraining;balance training;transfer training Clinical Impression Co-evaluation/co-treatment performed? Yes, combination of simultaneous billable and individual billable skilled care was necessary due to medical complexity and functional deficits Patient Instruction/Education comments Pt instructed on LB dressing techniques donning underwear and shorts min assist in sitting and standing with training on use of motel front desk attendant to maintain hip precautions Rehab Potential (OT [...] hygiene training Therapist Information License # [id number] 1. Pt will complete LB dressing SBA 2. Pt will complete sponge bathing min assist 3. Pt will complete toileting MOD I 4. Pt will complete hygiene/grooming standing at sink MOD I 5. Pt will complete walk in shower transfer CGA * Mayra Kaur, PT - 07/07/2023 6:38 PM EST 07/07/23 1753 Time In/Out Time In 3 Time Out 1822 Total Visit Time 29 [...] LUMPECTOMY FOOT SURGERY HEART CATHETERIZATION no stents FL ENDOMETRIAL CRYOABLATION REMOVAL BILIARY DUCT/GALLBLADDER CALCULI/DEBRIS PERCUTANEOUS [...] Supine to Sit, Rehab Eval Level of [place]: Supine/Sit stand-by assist Physical Assist/Nonphysical Assist: Supine/Sit 1 person assist Transfer Skill: Sit To Stand, Rehab Eval [place] (Sit-Stand Transfers) contact guard Physical Assist/Nonphysical Assist: Sit/Stand 1 person assist Weight-Bearing Restrictions: Sit/Stand toe touch weight-bearing Assistive Device For Transfer: Sit/Stand 2 wheeled walker Gait Skills, PT Eval Level of [place]: Gait contact guard Physical Assist/Nonphysical Assist: Gait [...] educated on hip precautions, use of leg cylinder press operator and weight bearing status. Pteducated to only [...] DISCUSSED WITH DR OHARA. documented in this [facility]03-06-2024 Hospital course Narrative* Chance Mahoney MD [...] 1 month, then 2x/week for maintainence, [facility]/pharmacy #[id number], 165, cm, 02/11/23 10:41:00 EDT, Height/Length Dosing, [...] Dept Phone 07/23/2023 2:30 PM Divine Leos [facility] Orthopedics [phone] documented in this encounterC[facility] Surgery Postoperative evaluation and management note* Op Note - Miko Ohara MD - 2023 5:54 AM EST DATE OF PROCEDURE: July 07, 2023 ATTENDING PHYSICIAN: Miko Ohara M.D. 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 PROCEDURE PERFORMED: Unlisted procedure of right hip and pelvis, dual-row suture anchor repair of 100% massive abductor tear of right hip, work equivalent similar to CPT 97026 Periarticular injection of right hip. ANESTHESIA: General. [...] it as a CPT similar to that, 15984. ATTENDING/ASSISTING PARTICIPATION: This operation could not have been safely performed (without compromising the technical results or length of the procedure) without the assistance of a skilled orthopedic assistant. A orthopedic assistant was medically necessary for positioning, retraction and instrume ntation. [facility] [employer] [facility]03-06-2024 Nurse Note* Nursing Notes - Aidee Field RN - 2023 4:10 AM EST Assessment remains unchanged from previous. Neuro checks WN, abductor pillow in place. Call light within reach. [facility]03-06-2024 Nurse Note* Nursing Notes - Aidee Field RN - 2023 12:05 AM EST Assessment remains unchanged from previous. Neuro checks WNL, abductor pillow in place. Denies futher needs, call light within reach. [facility]03-05-2024 Consult note* Chance Mahoney MD - [...] LUMPECTOMY FOOT SURGERY HEART CATHETERIZATION no stents FL ENDOMETRIAL CRYOABLATION REMOVAL BILIARY DUCT/GALLBLADDER CALCULI/DEBRIS PERCUTANEOUS [...] panel in the morning GI prophylaxis. [facility]03-05-2024 Consult note* Chance Mahoney MD - [...] LUMPECTOMY FOOT SURGERY HEART CATHETERIZATION no stents FL ENDOMETRIAL CRYOABLATION REMOVAL BILIARY DUCT/GALLBLADDER CALCULI/DEBRIS PERCUTANEOUS [...] the morning GI prophylaxis. documented in this encounterC[facility]03-[facility] Nurse Note* Nursing Notes - Marcella Lozano RN - 07/07/2023 4:10 PM EST Arrived to room [facility] from PACU. Bedside report received from RICARDO Jacobo. Oriented to room and provided call light. Admission assessment, head to toe and post op vitals initiated. Fresh ice water and crackers provided. Family members accompanying patient, denies additional needs, call light in reach. FAITH intact flashing green. [facility]03-[facility] Nurse Note* Sara Garcia RN - 07/07/2023 4:00 PM EST Patient transferred to [facility] via cart in stable condition. [...] Fire score of: 2 documented in this encounterCleveland [facility]03-[facility]24 Nurse Surgical operation note* Sara Garcia RN - 07/07/2023 4:00 PM EST Patient transferred to [facility] via cart in stable condition. Report given to RICARDO Kim. Cart left in locked and lowest position with side rails up x2. Snack and call light given to patient. Monitorsand alarms on and attached to patient. [facility]03-05-[facility] Nurse Surgical operation note* Edison Perez RN - 07/07/2023 3:30 PM EST Patient transported to PACU with Damián TILLEY. Reports given to Sara SILVA at 1530H. [facility]03-05-2024 Surgery Postoperative evaluation and management note* Brief Op Note - MEDINA Richardson - 07/07/2023 3:28 PM EST POST OPERATIVE/PROCEDURE NOTE Bettie Burns 77 y.o. female [id number] SURGEON Surgeons and Role: * Miko Ohara MD - Primary SOLE STAINER MEDINA Richardson ANESTHESIOLOGIST DESIGN STUDIO CONSULTANT: Chance Ngo CRNA; Damián Saenz APRN-TREVA SURGICAL STAFF Food Technician: Kisha Karimi RN; Whit Govea RN Nurse [...] Implant Name Type Inv. Item Serial No. Associate Counsel Lot No. LRB No. Used Action ANCHORS, 5.5 NON PUNCHING - [id number] ANCHORS, 5.5 NON PUNCHING HIST ARTHREX [id number] Right 1 Implanted ANCHORS, 5.5 NON PUNCHING - [id number] ANCHORS, 5.5 NON PUNCHING HIST ARTHREX [id number] Right 3 Implanted SPECIMENS ID Type Source [...] CULTURE Miko Ohara MD 07/07/2023 1434 Paula Barrera APRN-AUSTEN July 07, 2023 3:28 PM [facility]03-[facility] Nurse Surgical operation note* Whit Govea RN - 07/07/2023 2:04 PM EST OR 3 room temp: 65.1F Humidity: 44% Fire score of: 2 [facility]03-[facility] Nurse Note* Nursing Notes - Chelsea Bledsoe RN - 07/07/2023 10:52 AM EST Unable to doppler right dorsalis pedis pulse. [facility]02-[facility] Miscellaneous Notes* Telephone Encounter - Jacqueline [...] to Dr Ohara office. documented in this encounterFairfield Medical CenterYadwire Technology02-16-2024 Telephone encounter Note* Telephone Encounter - Jacqueline [...] on risk, holding Eliquis and Celebrex question. [employer]02-16-2024 Telephone encounter Note* Telephone Encounter - Donna Diaz MD - 06/19/2023 12:01 PM EST Okay to proceed with surgery at moderate risk Can use Celebrex Hold Eliquis for 2 days resume after surgery [employer] Work Phone: [phone] Telephone encounter Note* Telephone Encounter - Jacqueline Sparrow RN - 06/19/2023 12:01 PM EST Clearance note faxed back to Dr Ohara office. [employer]02-15-2024 History of Present illness Narrative* Eva Abrams [...] year ago with Dr. Denver Hughes in [place]. Pt states she is looking for a second opinion due to having issues from this past surgery. Date: 06/18/2023 2:32 PM Patient: Bettie Burns MR#: [id number] : 1945 Age: 77 y.o. Referring Physician: [...] APPENDECTOMY BREAST LUMPECTOMY FOOT SURGERY HEART CATHETERIZATION FL ENDOMETRIAL CRYOABLATION REMOVAL BILIARY DUCT/GALLBLADDER CALCULI/DEBRIS PERCUTANEOUS [...] tendons as discussed in detail above. 3. Mpbuf-[id number]-[id number] amount of fluid along the lateral aspect [...] nasal MRSA screening, scheduling an appointment for [facility] and the potential surgical date, and reviewing [...] APPENDECTOMY BREAST LUMPECTOMY FOOT SURGERY HEART CATHETERIZATION FL ENDOMETRIAL CRYOABLATION REMOVAL BILIARY DUCT/GALLBLADDER CALCULI/DEBRIS PERCUTANEOUS W/ IMAGE REMOVAL CATARACT (PEM) ROTATOR CUFF REPAIR History reviewed. No pertinent family history. Social History Socioeconomic History Marital status: Tobacco Use Smoking status: Never Smokeless tobacco: Never Social Determinants of Health Food Insecurity: No Food Insecurity (06/02/2023) Received from [facility] [employer] [employer] Hunger Screening Within the past 12 months [...] Morphine Oxycodone Penicillins Tramadol documented in this [facility]01-30-2024 History of Present illness Narrative* Donna [...] issues. Past Medical History: Diagnosis Date A-fib ([facility]) hx of Arrhythmia 12/2016 ATRIAL FIBRILLATION Arthritis Breast cancer ([facility]) 11/14/2015 LEFT COVID-19 03/2020 History of bleeding ulcers Hypertension Migraines Pneumonia d/t covid Prolonged emergence from general anesthesia Visual impairment glasses No data recorded No data recorded No data recorded Past Surgical History: Procedure Laterality Date ABLATION OF DYSRHYTHMIC FOCUS Right nerve ablation, L4 and L5 Afib ablation with SHANICE - CRYO, Rhythmia, ICE N/A 09/28/2018 Performed by Amber Quiñonez MD at [facility] ([facility]) ARTHROSCOPY REPAIR ROTATOR CUFF SHOULDER Right 05/16/2020 Performed by Melchor Rivera DO at [facility] ARTHROSCOPY SHOULDER Right 05/16/2020 Performed by Melchor Rivera DO at [facility] BREAST BIOPSY Left 2016 BREAST LUMPECTOMY Left 11/14/2015 WITH RADIATION BREAST SURGERY Left 2013 lumpectomy CATARACT EXTRACTION CHOLECYSTECTOMY COLONOSCOPY Coronary angiogram and left ventricular gram/pressure N/A 08/08/2021 Performed by Bertram Lal MD at 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 Referring Physician: [...] [x]cane, []bracing Are you followed by a housekeeper cleaning cooking? [x] [] Name: Dr. Waleska Zhu - [facility] Are you followed by pain management? [x] [] Name: Dr. Cedeno - Pain Mgmt @ [facility] Are you followed by any other specialists? [x] [] Name: Oncolgist - Dr. Choi [facility] Urologist - Dr. Christian Bourne Outpatient [...] abductor muscles as well as ESR/CRP and [place] and Chromium labs today. I will see [...] APPENDECTOMY BREAST LUMPECTOMY FOOT SURGERY HEART CATHETERIZATION FL ENDOMETRIAL CRYOABLATION REMOVAL BILIARY DUCT/GALLBLADDER CALCULI/DEBRIS PERCUTANEOUS [...] Morphine Oxycodone Penicillins Tramadol documented in this encounterCleveland [facility] Hospital11-27-2023 Evaluation note* Encounter Date Diagnosis Assessment [...] verbalizes understanding and agrees with tx plan. [employer] 10-11-2023 Hospital Discharge instructions Patient Education [...] provider. Document Revised: 08/29/2021 Document Reviewed: 08/29/2021 [employer] Patient Education 2022 Numerous. Follow Up Care 11/06/2022 15:31:52 With:Paul VILLEGAS, PERLA Araujo, URO Address: When:Within 3 Month(s) [facility] [employer] 07-17-2023 Evaluation note* Encounter Date Diagnosis Assessment Notes Treatment Notes Treatment Clinical Notes Nov, Dysuria (ICD-10 - R30.0) [employer] [facility] 06-29-2023 Evaluation note* Encounter Date Diagnosis Assessment Notes Treatment Notes Treatment Clinical Notes Oct, Frequent UTI (ICD-10 - N39.0) Pt requests Urology referral. Discussed also getting CT to move along process. Oct, Dyshidrotic eczema (ICD-10 - L30.1) Will treat with steroid cream prn [employer] Other 06-26-2023 Evaluation note* Encounter Date Diagnosis Assessment Notes Treatment Notes Treatment Clinical Notes Oct, Dysuria (ICD-10 - R30.0) [employer] [facility] 05-11-2023 Miscellaneous Notes* Telephone Encounter - Matt Adams RN - 09/11/2022 11:43 AM EDT Order faxed to [facility] and pt is aware. Matt Adams RN * Telephone Encounter - Matt Adams RN - 09/11/2022 9:51 AM EDT Pt called to request yearly Mammogram order I have pended order as previously completed Pt requests to fax to Nori Lema [phone] BRM/HM: please review and sign if agreeable Matt Adams RN documented in this encounterMercy Health Anderson Hospital04-10-2023 Evaluation note* Encounter Date Diagnosis Assessment Notes Treatment Notes Treatment Clinical Notes Aug, Dysuria (ICD-10 - R30.0) [employer] [facility] 03-16-2023 Evaluation note* Encounter Date Diagnosis [...] N32.81) chronic and improved on present med [employer] [facility] 02-20-2023 Evaluation note* Encounter Date Diagnosis Assessment Notes Treatment Notes Treatment Clinical Notes Jun, Dysuria (ICD-10 - R30.0) [employer] [facility] 02-03-2023 Evaluation note* Encounter Date Diagnosis Assessment Notes Treatment Notes Treatment Clinical Notes Jun, OAB (overactive bladder) (ICD-10 - N32.81) [employer] [facility] 02-01-2023 Evaluation note* Encounter Date Diagnosis Assessment Notes Treatment Notes Treatment Clinical Notes Jun, OAB (overactive bladder) (ICD-10 - N32.81) Patient request to try new medication reviewed side effect profile. Patient declines urology or [facility] referral at this time. Jun, Essential hypertension (ICD-10 - I10) reviewed and updated medications she will follow-up with cardiology in Jun, Hypokalemia (ICD-10 - E87.6) Reviewed and updated medications. Discussed foods that are high in potassium Jun, Right lumbar pain (ICD-10 - M54.50) Follow-up with Dr. Rivera as scheduled in June. She does have limping with her gait. [employer] Other 05-26-2022 Miscellaneous Notes* Telephone Encounter - Andrew Choi MD - 09/26/2021 5:13 PM EDT Okay to change to screening mammogram. Order signed. ASIYA Ford * Telephone Encounter - Mikaela Thompson RN - 09/26/2021 2:33 PM EDT Pt scheduled for diagnostic mamm tomorrow @ [facility]. Hospital calls to ask if this could be changed to a screening mammogram since the pt is greater than 2 years from diagnosis? Mikaela Thompson RN documented in this encounterMercy Health Anderson HospitalEvaluation + Plan note Future Appointments Appointment Date:05/27/2023 08:45:00 AM Scheduled Provider:Alfreda Miller MD Location:[facility] Appointment Type:URO Office Visit [facility] evaluation + Plan note Future Appointments Appointment Date:07/22/2024 10:30:00 AM Scheduled Provider: Location:[facility] Appointment Type:Urology CALL PAT FT Appointment Date:07/25/2024 08:15:00 AM Scheduled Provider: Location:[facility] Appointment Type:Urology FT [facility] evaluation + Plan note Future Appointments Appointment Date:07/22/2024 10:30:00 AM Scheduled Provider: Location:[facility] Appointment Type:Urology CALL PAT FT Appointment Date:07/25/2024 08:15:00 AM Scheduled Provider: Location:[facility] Appointment Type:Urology FT Diagnostic Tests Pending * Urine Culture 06/22/24 [facility] Evaluation note* Diagnosis Encounter for screening mammogram for malignant neoplasm of breast- Primary Other screening mammogram documented in this encounter [facility]* Diagnosis Malignant neoplasm of upper-outer quadrant of left breast in female, estrogen receptor positive (HCC)- Primary documented in this encounter [facility]Eval[facility] noteNo InformationNocox monett [employer] Other Evaluation note* Diagnosis Encounter for screening mammogram for malignant neoplasm of breast- Primary Other screening mammogram documented in this encounter [facility] noteNo assessment information [facility] Work Phone: Evaluation note* Diagnosis Pain in prosthetic joint, initial encounter- Primary Primary osteoarthritis of right hip Primary localized osteoarthrosis, pelvic region and thigh documented [facility] encounter [facility]* Diagnosis Right hip pain- Primary Pain in joint, pelvic region and thigh Pre-op testing- Primary Preoperative examination, unspecified Essential (primary) hypertension Unspecified essential hypertension Abnormal finding of blood chemistry, unspecified Abnormal coagulation profile Tear of rotator cuff of right hip, initial encounter 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, initial encounter documented [facility] this encounter [facility]* Diagnosis Status post revision of total hip- Primary Hip joint replacement by other means Pre-op testing Preoperative examination, unspecified Tear of rotator cuff of right hip, initial encounter 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, initial encounter Acute postoperative pain of right hip documented [facility]* Diagnosis Tear of gluteus minimus tendon, right, initial encounter- Primary documented [facility] encounter [facility]* Diagnosis Right hip pain- Primary Pain in joint, pelvic region and thigh documented [facility] encounter [facility]* Diagnosis Onset Date Resolution Status Dysuria noneactive [facility] Work Phone: Evaluation note* Diagnosis Hx of total hip arthroplasty, right- Primary documented [facility] encounter [facility]* Diagnosis Paroxysmal atrial fibrillation (CMS-HCC)- Primary Atrial fibrillation Primary hypertension Unspecified essential hypertension Chronic coronary artery disease Coronary atherosclerosis of unspecified type of vessel, [place] or graft documented [facility] encounter [facility]* Diagnosis Paroxysmal atrial fibrillation (CMS-HCC)- Primary Atrial fibrillation Unstable angina (CMS-HCC) Intermediate coronary syndrome SOB (shortness of breath) Shortness of breath documented in this encounter [facility]* Diagnosis Hx of total hip arthroplasty, right- Primary documented in this encounter [facility] SystemHistory general Narrative - Reported* Type [...] replacement 12/16/2021 Hospitalization History SEE SURGICAL HX [employer] Other Hospital course Narrative No data available for this section [facility] Hospital Discharge instructions* Attachments The following attachments cannot be sent through Care Everywhere. * [facility] AMB SMOKING CESSATION LINKS documented in this encounterCleveland Clinic Lutheran HospitalHospital Discharge instructions No data available for this section [facility] InstructionsNot on filedocumented in this encounter [facility] [...] available for this section [facility] reason for referral (narrative)* Diagnostic Procedure Only (Routine) - Pending Review Specialty Diagnoses / Procedures Referred By Contac t Referred To Contact [facility] Diagnoses Encounter for screening mammogram for malignant neoplasm of breast Procedures SHANE SCREENING W YAW SCREENING DIGITAL BREAST TOMOSYNTHESIS BI SCREENING MAMMOGRAPHY BI 2-VIEW BREAST INC Andrew Miguel MD [address] [place] [address] [place] [address] [facility] [address] [place] [phone] Referral ID Status Reason Start Date Expiration Date Visits Requested Visits Authorized [id number] Pending Review Auto-Generat ed Referral 09/26/2021 10/26/2022 1 1 T [facility] for referral (narrative)* Diagnostic Procedure Only (Routine) - Pending Review Specialty Diagnoses / Procedures Referred By Contac t Referred To Contact [facility] Diagnoses Encounter for screening mammogram for malignant neoplasm of breast Procedures SHANE SCREENING W YAW SCREENING DIGITAL BREAST TOMOSYNTHESIS BI SCREENING MAMMOGRAPHY BI 2-VIEW BREAST INC Andrew Miguel MD [address] [place] [address] [place] [address] [facility] [address] [place] [phone] Referral ID Status Reason Start Date Expiration Date Visits Requested Visits Authorized [id number] Pending Review Auto-Generat ed Referral 09/11/2022 10/11/2023 1 1 [facility] for referral (narrative)* (Routine) Specialty Diagnoses / Procedures Referred By Contac t Referred To Contact [facility] REV LOC [address] [place] [phone] Referral ID Status Reason Start Date Expiration Date Visits Re quested Visits Authorized [facility] for referral (narrative)* Consultation (Routine) - Patient to Arrange Specialty Diagnoses / Procedures Referred By Contac t Referred To Contact Physical Therapy Diagnoses Right hip pain Divine Dougherty [address] [place] [phone] Referral ID Status Reason Start Date Expiration Date V isits Requested Visits Authorized [id number] Patient to Arrange 08/20/2023 09/13/2024 1 1 Scheduling Instructions . * Diagnostic X-Ray (Routine) - New Request Specialty Diagnoses / Procedures Referred By Contac t Referred To Contact Diagnoses Right hip pain Procedures XR HIP WITH PELVIS RIGHT Divine Dougherty [address] [place] [phone] Referral ID Status Reason Start Date Expiration Date V isits Requested Visits Authorized [id number] New Request 08/20/2023 09/13/2024 1 1 [facility] for referral (narrative)* Diagnostic Procedure Only (Routine) - Pending Review Specialty Diagnoses / Procedures Referred By Russac t Referred To Contact [facility] Diagnoses Encounter for screening mammogram for malignant neoplasm of breast Procedures SHANE SCREENING W YAW SCREENING DIGITAL BREAST TOMOSYNTHESIS BI SCREENING MAMMOGRAPHY BI 2-VIEW BREAST INC CAD Andrew Choi MD [address] [place] [address] [place] [address] [facility] [address] [place] [address] Referral ID Status Reason Start Date Expiration Date Visits Requested Visits Authorized [id number] Pending Review Auto-Generat ed Referral 09/17/2023 10/16/2024 1 1 [facility] for visit Narrative* Diagnostic X-Ray (Routine) - New Request Specialty Diagnoses / Procedures Referred By Russac t Referred To Contact Diagnoses Hx of total hip arthroplasty, right Procedures XR HIP WITH PELVIS RIGHT Paula Barrera APRN-AUSTEN [address] [place] [phone] Phone: tel: fax: Referral ID Status Reason Start Date Expiration Date V isits Requested Visits Authorized [id number] New Request 07/12/2024 08/06/2025 1 1 [employer] [facility] Summary Purpose Family History Relationship Condition Age at Onset Recorded Date/T nilam father Unknown mother Unknown Advance Directives Documents on File Type Date Recorded Patient General Internist And Physician Leader Expl anation Advance Directives/Living Will 06/25/2023 9:17 AM DURABLE POWER OF BLANCHING MACHINE OPERATOR FOR HEALTHCARE 06/25/23 Advance Directives/Living Will [...] Documents on File Type Date Recorded Patient General Internist And Physician Leader Expl anation Living Will 05/21/2020 9:37 AM Durable Power of Autism Teacher 05/21/2020 9:27 AM Durable Power of Autism Teacher 05/16/2020 6:05 AM Living Will 05/16/2020 6:04 [...] HIP WITH PELVIS RIGHT Miko Ohara MD [address] [place] [address] Referral ID Status Reason Start Date Expiration Date V isits Requested Visits Authorized [id number] New Request 11/16/2023 12/10/2024 1 1 Specialty Diagnoses / Procedures Referred By Contac t Referred To Contact Diagnoses Tear of gluteus minimus tendon, right, initial encounter Procedures XR HIP WITH PELVIS RIGHT Divine Dougherty [address] [place] [phone] Referral ID Status Reason Start Date Expiration Date V isits Requested Visits Authorized [id number] New Request 07/20/2023 08/13/2024 1 1 Specialty Diagnoses / Procedures Referred By Contac t Referred To Contact Diagnoses Pain in prosthetic joint, initial encounter Procedures MRI HIP RIGHT WITHOUT CONTRAST FL MRI LOWER EXTREM JT, W/O CONTRAST Miko Ohara MD [address] [place] [phone] Referral ID Status Reason Start Date Expiration Date V isits Requested Visits Authorized [id number] New Request 05/14/2023 06/07/2024 1 1 Specialty Diagnoses / Procedures Referred By Contac t Referred To Contact Diagnoses Pain in prosthetic joint, initial encounter Procedures COBALT AND CHROMIUM,WB Miko Ohara MD [address] [place] [phone] Referral ID Status Reason Start Date Expiration Date V isits Requested Visits Authorized [id number] New Request 05/14/2023 06/07/2024 1 1 Specialty Diagnoses / Procedures Referred By Contac t Referred To Contact Diagnoses Primary osteoarthritis of right hip Procedures XR HIP WITH PELVIS RIGHT Miko Ohara MD [address] [place] [phone] Referral ID Status Reason Start Date Expiration Date V isits Requested Visits Authorized [id number] New Request 05/06/2023 05/30/2024 1 1 Reason *FU 11/12 [place] office Diagnosis 1 Frequent UTI (N39.0) Referral Organization [facility] [place] [facility] Referring Provider First Name Elliot Referring Provider Last Name Raudel Referring Provider Specialty Family Medi cine Referred Organization [facility] Referred Provider ALFREDA MILLER Referred Address [address], [place],[address] Referred Provider Specialty Urology Referral Priority Routine [...] content) DATE CREATED AUTHOR 10/28/[address] [facility] DATE CREATED AUTHOR AUTHOR'S ORGANIZ ATION 03/21/2020 [facility] DATE CREATED AUTHOR AUTHOR'S ORGANIZ ATION 09/13/2021 [facility] dical Specialist DATE CREATED AUTHOR AUTHOR'S ORGANIZ ATION 06/11/2022 [facility] DATE CREATED AUTHOR AUTHOR'S ORGANIZ ATION 11/18/2022 [facility] DATE CREATED AUTHOR AUTHOR'S ORGANIZ ATION 05/20/2023 [facility] DATE CREATED AUTHOR AUTHOR'S ORGANIZ ATION 09/19/2023 [facility] DATE CREATED AUTHOR AUTHOR'S ORGANIZ ATION 10/01/2023 [facility] DATE CREATED AUTHOR AUTHOR'S ORGANIZ ATION 04/08/2024 [facility] DATE CREATED AUTHOR AUTHOR'S ORGANIZ ATION 06/24/2024 [facility] DATE CREATED AUTHOR AUTHOR'S ORGANIZ ATION 06/26/2024 [facility] DATE CREATED AUTHOR AUTHOR'S ORGANIZ ATION 06/30/2024 [facility] DATE CREATED AUTHOR AUTHOR'S ORGANIZ ATION 07/17/2024 [facility] [place] [employer] [employer] Comments (unrecognize d section and content) In the event this informatio n is protected by the Federal Confidentiality of Alcohol and Drug Abuse Patient Records regulations: The Federal rules restrict any use of the information to criminally investigate or prosecute any alcohol or drug abuse patient.[facility] the event this information is protected by the Federal Confidentiality of Alcohol and Drug Abuse Patient Records regulations: The Federal rules restrict any use of the information to criminally investigate or prosecute any alcohol or drug abuse patient.[facility] Hospital[facility] the event this information is protected by the Federal Confidentiality of Alcohol and Drug Abuse Patient Records regulations: The Federal rules restrict any use of the information to criminally investigate or prosecute any alcohol or drug abuse patient.[facility] Hospital[facility] the event this information is protected by the Federal Confidentiality of Alcohol and Drug Abuse Patient Records regulations: The Federal rules restrict any use of the information to criminally investigate or prosecute any alcohol or drug abuse patient.[facility] Reason for Visit (unrecogniz ed section and content) Reason Comments Radiology Mammogram Reason Comments Lab Orders Reason Comments Orders Specialty Diagnoses / Procedures Referred By Juan wren Referred To Contact Diagnoses Primary osteoarthritis of right hip Procedures XR HIP WITH PELVIS RIGHT Miko Ohara MD [address] [place] [address] Referral ID Status Reason Start Date Expiration Date V isits Requested Visits Authorized [id number] New Request 05/06/2023 05/30/2024 1 1 Reason [...] right hip prosthesis, initial encounter [T84.090A] Procedures FL PELVIS/HIP JOINT SURGERY UNLISTED FL REVISE TOTAL HIP REPLACEMENT GLUTEUS MEDIUS TENDON REPAIR REVISION ARTHROPLASTY HIP BOTH ACETABULAR & FEMORAL COMPONENTS Miko Ohara MD [address] [place] [address] Referral ID Status Reason Start Date Expiration Date Visits Re quested Visits Authorized [id number] 06/19/2023 1 1 Reason Comments Post Op Visit Specialty Diagnoses / Procedures Referred By Juan wren Referred To Contact Diagnoses Tear of gluteus minimus tendon, right, initial encounter Procedures XR HIP WITH PELVIS RIGHT Divine Dougherty [address] [place] [address] Referral ID Status Reason Start Date Expiration Date V isits Requested Visits Authorized [id number] New Request 07/20/2023 08/13/2024 1 1 Reason Comments Follow-up Specialty Diagnoses / Procedures Referred By Juan wren Referred To Contact Diagnoses Right hip pain Procedures XR HIP WITH PELVIS RIGHT Divine Dougherty [address] [place] [address] Referral ID Status Reason Start Date Expiration Date V isits Requested Visits Authorized [id number] New Request 08/20/2023 09/13/2024 1 1 Reason Comments Yearly Exam With Mammogram Reason Comments Pain Specialty Diagnoses / Procedures Referred By Contac t Referred To Contact Diagnoses Hx of total hip arthroplasty, right Procedures XR HIP WITH PELVIS RIGHT Miko Ohara MD [address] [place] [address] Referral ID Status Reason Start Date Expiration Date V isits Requested Visits Authorized [id number] New Request 11/16/2023 12/10/2024 1 1 Reason Comments Follow-up est pt concerns of a fib per smart watch wants seen sooner. sched w/pt pt will arrive at 11:30 Reason Onset Date Comments Med Refill 10/19/2023 Reason Onset Date Comments Pre op clearance 06/19/2023 Reason Comments Follow-up Hypertension Leg Swelling Reason Comments Med Refill Reason Comments Follow-up Care Teams (unrecognized sec tion and content) Personnel Name: ELLIOT STARKS MD Address: [address] [place] [address] Telecom: Asphalt Paving Superintendent Relationship Specialty Start Date End Date Elliot Starks MD [address] [place] [phone] PCP - General Family Practice 11/26/15 Asphalt Paving Superintendent Relationship Specialty Start Date End Date Elliot Starks MD [address] [place] [phone] PCP - General Family Practice 11/26/15 Asphalt Paving Superintendent Relationship Specialty Start Date End Date Elliot Starks MD [address] [place] [phone] PCP - General Family Medicine 11/26/15 Team Status: Inactive Member Role Status Dates Elliot Starks MD Attending Provider Active Asphalt Paving Superintendent Relationship Specialty Start Date End Date Elliot Starks MD [address] [place] [address] [place] [address] PCP - General Family Medicine 05/11/23 Asphalt Paving Superintendent Relationship Specialty Start Date End Date Elliot Starks MD [address] [place] [address] [place] [address] PCP - General Family Medicine 05/11/23 Asphalt Paving Superintendent Relationship Specialty Start Date End Date Elliot Starks MD [address] [place] [address] [place] [address] PCP - General Family Medicine 05/11/23 Asphalt Paving Superintendent Relationship Specialty Start Date End Date Elliot Starks MD [address] [place] [address] [place] [address] PCP - General Family Medicine 05/11/23 Asphalt Paving Superintendent Relationship Specialty Start Date End Date Elliot Starks MD [address] [place] [address] [place] [address] PCP - General Family Medicine 05/11/23 Asphalt Paving Superintendent Relationship Specialty Start Date End Date Elliot Starks MD [address] [place] [address] [place] [address] PCP - General Family Medicine 05/11/23 Asphalt Paving Superintendent Relationship Specialty Start Date End Date Elliot Starks MD [address] [place] [address] [place] [address] PCP - General Family Medicine 05/11/23 Asphalt Paving Superintendent Relationship Specialty Start Date End Date Elliot Starks MD [address] [place] [address] [place] [address] PCP - General Family Medicine 05/11/23 Asphalt Paving Superintendent Relationship Specialty Start Date End Date Elliot Starks MD [address] [place] [phone] PCP - General Family Medicine 11/26/15 Team [...] May 09, 2024 End: May 09, 2024 Asphalt Paving Superintendent Relationship Specialty Start Date End Date Elliot Starks MD [address] [place], [place] [phone] PCP - General 03/17/17 Asphalt Paving Superintendent Relationship Specialty Start Date End Date Elliot Starks MD [address] [place], [place] [phone] PCP - General 07/15/23 Asphalt Paving Superintendent Relationship Specialty Start Date End Date Elliot Starks MD [address] [place] [phone] PCP - General 03/17/17 Asphalt Paving Superintendent Relationship Specialty Start Date End Date Elliot Starks MD [address] [place] [address] [phone] PCP - General 03/17/17 Asphalt Paving Superintendent Relationship Specialty Start Date End Date Elliot Starks MD [address] [place] [address] [phone] PCP - General 07/15/23 Asphalt Paving Superintendent Relationship Specialty Start Date End Date Elliot Starks MD [address] [place], [place] [phone] PCP - General 07/15/23 Asphalt Paving Superintendent Relationship Specialty Start Date End Date Elliot Starks MD [address] [place], [place] [phone] PCP - General 07/15/23 Team Status: Active Member Role Status Dates Elliot Starks MD Primary Care Provide r, Attending Provider Active Start: May 11, 2024 Team Status: Inactive Member Role Status Dates Elliot Starks MD Primary Care Provider Active Start: June 21, 2024 End: June 21, 2024 Chinedu Farley DO Attending Provider Active Sta rt: June 21, 2024 End: June 21, 2024 Asphalt Paving Superintendent Relationship Specialty Start Date End Date Elliot Starks MD [address] [place] [phone] PCP - General Family Medicine 05/11/23 Asphalt Paving Superintendent Relationship Specialty Start Date End Date Elliot Starks MD [address] [place] [address] [phone] PCP - General Family Medicine 05/11/23 Goals [...] RN)1514 ($$New Bag$$ - Provider: Damián Saenz APRN-DESIGN STUDIO CONSULTANT)1647 (Stopped - Provider: Aidee Field RN) Sodium [...] 2 g, Intravenous, Administer over 15 Minutes, COLLECTION SUPPORT SPECIALIST TO PROCEDURE, 1 dose, Starting on Thu07/07/23 at 1003, Until Thu07/07/23 at 1409, Other, Pre-operative antibiotic, Pre-op/Pre-Proc 1354 (Given - Provider: Melchor Holcomb, PATIENT REGISTRATION REPRESENTATIVE-[facility]) HYDROmorphone (DILAUDID) injection 0.5 mg 0.5 [...] Post-op/Post-Proc 1646 (Given - Provider: Marcella Lozano RN)2102 (Given [...] BE BASED ON THE PRIMARY CLINICAL RECORDS. [facility]. provides no warranty or guarantee of the accuracy or completeness of information in this document.
--- NOTE | 2024-07-27 06:48 | MR_ITS ---
The [address] [address] Patient Name: NGUYEN MARQUEZ MRN: [id number] date: 1945 Sex: F Assigned Patient Location: MRI Current Patient Location: MRI Accession/Order Number: [id number] Exam Date: 07/27/2024 14:28 Report Date: 07/27/2024 14:32 At the request of: JESSICA WILLIAM NP Procedure: MR lumbar spine wo con EXAMINATION: MRI LUMBAR SPINE WITHOUT IV CONTRAST CLINICAL HISTORY: lumbar stenosis with neuroclaudication COMPARISON: None TECHNIQUE: Multiecho imaging was performed in the sagittal and axial planes without contrast administration. FINDINGS: Vertebral body heights appear maintained. No bone marrow edema is noted. Diffuse disc desiccation. Spinal cord terminates in normal position without abnormal cord signal. No paraspinal mass. Visualized retroperitoneum demonstrates no acute process. At L1-L2: No posterior disc pathology. Mild facet joint degenerative changes. No significant canal or neural foraminal stenosis. At L2-L3: No posterior disc pathology. Ligamentum flavum hypertrophy and facet joint degenerative changes causing mild canal and bilateral neural foraminal stenosis. At L3-L4: 3 mm of anterolisthesis. Diffuse broad-based disc bulge is present with ligamentum flavum hypertrophy and facet joint degenerative changes causing moderate canal and mild bilateral neural foraminal stenosis. At L4-L5: 5 mm of anterolisthesis. Diffuse broad-based disc bulge is present malignant flavum hypertrophy and facet joint degenerative changes causing severe canal and moderate right neural foraminal stenosis. At L5-S1: Mild broad-based disc bulge is present with facet joint degenerative changes causing mild canal and bilateral neural foraminal stenosis. MR/MR lumbar spine wo con IMPRESSION: Multilevel degenerative disease as described above, worst at L4-L5 with severe canal and moderate right neural foraminal stenosis. Impression dictated by: David Giron Jr., D.O.07/27/2024 2:32 PM Dictation Location: [place] [address] Electronically authenticated by: [id number] Y Date: 07/27/2024 14:32
== END 2024-07-27 06:43 | disposition home or self-care (01) ==
LOC: MRI 06:42
PROVIDERS: PCP Family Medicine; Visit Provider Nurse Practitioner
DX: M48.062 Spinal stenosis, lumbar region with neurogenic claudication (principal); M51.369 Other intervertebral disc degeneration, lumbar region without mention of lumbar back pain or lower extremity pain
CPT/HCPCS: 72148

== ENCOUNTER 2024-08-11 09:13 | Outpatient (OUT) | payer MEDICARE, SELFPAY ==
--- NOTE | 2024-08-11 09:48 | P.CN_ITS ---
Consult Note: HPI Data of Consult Patient: known to practice within the last 3 years Requesting Physician: Larissa Turner NP Primary Care Provider: Marine Glass MD Consult Narrative Reason for consult: chronic back pain Narrative: Bettie Burns a pleasant 79 year old female presents for evaluation of chronic low back pain. Longstanding hx of low back and SIJ pain secondary to lumbar spondylosis, lumbar DDD, and sacroilitis. Pain unresponsive to >6 weeks of PT and provider guided HEP, heat, ice, tylenol, and she cannot take NSAIDs as she is on eliquis. denies falls or injury. Pain today 3/10 increasing to 8/10 with standing, walking, pushing, pulling, activity, and sleep. Pt currently utilizing mckenna ASA and baclofen 10mg TID PRN with mild relief. TEJA 58% with moderate to severe pain impacting ADLs, sitting, standing, walking, sleep, social life, and travel. Continues to f/u with orthopedics post right abductor hip repair 1 year ago. recently underwent lumbar MRI which is consistent with additional multilevel stenosis, lumbar DDD, and lumbar spondylosis. cc:: CC: Larissa Turner NP Review of Systems ROS Status of ROS 10 or more systems reviewed and unremark able except as noted in history and below [facility] Medical History (Updated 07/14/24 @ 08:45 by Larissa Turner NP) Neck pain ?M54.2 - Cervicalgia (ICD-10) Upper back pain ?M54.9 - Dorsalgia, unspecified (ICD-10) Low back pain ?M54.50 - Low back pain, unspecified (ICD-10) Osteoarthritis ?M19.90 - Unspecified osteoarthritis, unspecified site (ICD-10) H/O malignant neoplasm of breast ?Z85.3 - Personal history of malignant neoplasm of breast (ICD-10) Hearing deficit ?H91.90 - Unspecified hearing loss, unspecified ear (ICD-10) Former smoker ?Z87.891 - Personal history of nicotine dependence (ICD-10) Hypertension ?I10 - Essential (primary) hypertension (ICD-10) Atrial fibrillation ?I48.91 - Unspecified atrial fibrillation (ICD-10) Cataract ?H26.9 - Unspecified cataract (ICD-10) Surgical History Status post hip surgery ?Z98.890 - Other specified postprocedural states (ICD-10) H/O total hip arthroplasty ?Z96.649 - Presence of unspecified artificial hip joint (ICD-10) H/O cardiac catheterization ?Z98.890 - Other specified postprocedural states (ICD-10) History of cholecystectomy ?Z90.49 - Acquired absence of other specified parts of digestive tract (ICD- 10) H/O: hysterectomy ?Z90.710 - Acquired absence of both cervix and uterus (ICD-10) H/O foot surgery ?Z98.890 - Other specified postprocedural states (ICD-10) H/O eye surgery ?Z98.890 - Other specified postprocedural states (ICD-10) H/O shoulder surgery ?Z98.890 - Other specified postprocedural states (ICD-10) H/O breast surgery ?Z98.890 - Other specified postprocedural states (ICD-10) Social History Smoking status: Never smoker Meds Home Medications and Allergies Home Medications ?Medication ?Instructions ?Recorded ?Confirmed ?Type apixaban 5 mg tablet (Eliquis) 5 mg PO BID 10/28/22 04/04/24 History atenolol 50 mg tablet 75 mg PO DAILY 10/28/22 04/04/24 History baclofen 10 mg tablet 20 mg PO TID 10/28/22 04/04/24 History hydrochlorothiazide 25 mg tablet 25 mg PO DAILY 10/28/22 04/04/24 History lisinopril 20 mg tablet 20 mg PO DAILY 10/28/22 04/04/24 History neuveria vitamin DAILY 10/28/22 History temazepam 30 mg capsule 30 mg PO QPM 10/28/22 04/04/24 History trospium 20 mg tablet 20 mg PO Q12H 04/02/23 04/04/24 History aspirin 500 mg tablet (Mckenna 500 mg PO DAILY PRN pain 11/04/23 04/04/24 History Advanced) cyclosporine 0.05 % eye drops in a drp ophthalmic (eye) 11/04/23 History dropperette omeprazole 40 mg capsule,delayed 40 mg PO DAILY 11/04/23 04/04/24 History release vit C 250 mg-vit E 90 mg-zinc 40 1 tab PO BID 11/04/23 04/04/24 History mg-copper 1 [id number] capsule (PreserVision AREDS-2) flecainide 50 mg tablet mg 12/14/23 History potassium chloride 10 mEq meq PO 12/14/23 History tablet,extended release baclofen 10 mg tablet 10 mg PO TID PRN muscle spasm #270 04/14/24 Rx tabs Allergies Allergy/AdvReac Type Severity Reaction Status Date / Time acetaminophen (From Vicodin) Allergy Severe itching Verified 04/04/24 07:17 hydrocodone (From Vicodin) Allergy Severe itching Verified 04/04/24 07:17 codeine Allergy Unknown Hives Verified 04/04/24 07:17 levofloxacin (From Levaquin) Allergy Unknown uticaria Verified 04/04/24 07:17 morphine Allergy Unknown uticaria Verified 04/04/24 07:17 Penicillins Allergy Unknown uticaria Verified 04/04/24 07:17 tramadol Allergy Unknown uticaria Verified 04/04/24 07:17 Exam Constitutional Documenting provider has reviewed patient's vital signs: yes Common normals: no apparent distress, oriented x3, healthy appearing, alert and well nourished General appearance: cooperative HENMT Common normals: normocephalic, hearing grossly normal bilaterally and moist oral mucous membranes Head and scalp: normocephalic Eye Common normals: PERRL Pupil: PERRL Neck & C-Spine Common normals: full ROM General: normal visual inspection Chest Common normals: inspection of chest normal Respiratory Common normals: normal respiratory effort, no retractions and no use of accessory muscles Back & Pelvis Lumbar spine/lower back: ROM limited, pain with ROM and lumbar spinal tenderness Lumbar spinal tenderness location: L3, L4 and L5 Sacroiliac joints: SI joint(s) abnormal Other: altered sensation to right L3,4,5 strength 4/5 in RLE and 5/5 in LLE right sij positive jovanna(patricks), gaenslens, thigh thrust, compression test Neuro Common normals: oriented x3 Sensorium/orientation: alert Psych Common normals: mental status grossly normal, thought process normal, cooperative, affect normal, speech normal and activity/motor behavior normal Speech: normal speech Thought process: normal thought process Results Additional Findings Additional findings: If on a controlled substance or opioids, I have checked an [place] report on this patient and there are no aberrancies noted in the prescribing history.??If on a controlled substance or opioid a drug screen was completed and reviewed within the last year, and if there has not been a drug screen completed we ordered one today to monitor higher risk, state monitored pain medication use. As part of providing excellent, safe, comprehensive care, the following was completed at our patient's visit: 1. A medication reconciliation and review to ensure accurate knowledge of current/active medications, including asking our patients to inform us about any [id number] medications or herbal remedies/nutritional supplements/alternative remedies. 2. A review to specifically ensure our patients have had annual screening for screening for depression, screening for tobacco use, and screening for unhealthy alcohol use. For concerning screenings had a discussion with the patient, provided patient education, and recommended follow-up with primary care provider when appropriate. If patient noted with a risk of falling, they received education on strength, gait, and balance training to prevent future risk of falling. Portions of this note may have been carried over from the previous visit and updated as appropriate. Please note this office utilizes paper charting in addition to the electronic medical record. A list of current medications, vitals, and PMH is available there as the clinical staff outside of myself do not have access to [facility] charting during the clinic day operations. As part of providing quality comprehensive care the current medications, vitals, and PMH were reviewed in the paper chart. Assessment and Plan Assessment and Plan (1) Lumbar stenosis with neurogenic claudication: Assessment and Plan: The patient has had over 3 months of moderate to severe low back, SIJ pain with functional impairment and inadequate response to conservative care including NSAIDS (unless there are contraindication such as concurrent blood thinners), multiple oral or topical pain medications, and home exercise program/physical therapy.? Patient has completed >6 weeks of guided home exercise program and/or formal physical therapy program without relief of their symptoms.? We discussed the risks and benefits of the procedure with the patient, and we are NOT planning on using sedation as outlined in the guidelines from Medicare unless there is a documented reason that sedation would be strongly recommended.?? ?The procedure will be completed with fluoroscopic guidance.? (2) Sacroiliitis: (3) Myofascial pain: (4) Lumbar spondylosis: (5) Muscle spasm: Plan right L3-4 L4-5 TFESI under fluoroscopy for lumbar stenosis with NC dc baclofen, start flexeril 10mg TID PRN pain/spasms. risks vs benefits reviewed continue HEP as tolerated continue otc tylenol PRN f/u 2 weeks after injection, consider right sij injection
== END 2024-08-11 09:14 | disposition home or self-care (01) ==
PROVIDERS: PCP Family Medicine; Visit Provider Nurse Practitioner
DX: M48.062 Spinal stenosis, lumbar region with neurogenic claudication (principal); M46.1 Sacroiliitis, not elsewhere classified; M47.816 Spondylosis without myelopathy or radiculopathy, lumbar region; M62.838 Other muscle spasm
CPT/HCPCS: G0463

== ENCOUNTER 2024-08-15 09:38 | Outpatient (OUT) | payer MEDICARE, SELFPAY ==
--- NOTE | 2024-08-15 09:41 | CT_ITS ---
The [address] [address] Patient Name: NGUYEN MARQUEZ MRN: [id number] date: 1945 Sex: F Assigned Patient Location: CT Current Patient Location: CT Accession/Order Number: [id number] Exam Date: 08/15/2024 10:19 Report Date: 08/15/2024 10:25 At the request of: AXEL MERLOS MD Procedure: CT abdomen pelvis wo con CT Abdomen and Pelvis withoutcontrast TECHNIQUE: Axial imaging with 2-D reconstruction. . The CT exam was performed using one or more the following dose reduction techniques: Automated exposure control, adjustment of the MA and/or Kv according to patient size, or use of the iterative reconstruction technique. COMPARISON: 07/18/2024 History: Assessment for kidney stones LIMITATIONS: None LOWER THORAX the basilar scarring LIVER: Unremarkable GALLBLADDER: Cholecystectomy clips identified. BILE DUCTS: No dilatation SPLEEN: Unremarkable PANCREAS: Unremarkable ADRENAL GLANDS: Unremarkable KIDNEYS:Subcentimeter left renal hypodensities. Unchanged. AORTA: No abdominal aortic aneurysm identified. RETROPERITONEUM: No significant retroperitoneal abnormalities identified. MESENTERY:Unremarkable SMALL BOWEL: The small bowel loops are nondistended. APPENDIX: The appendix is normal. COLON: Left diverticulosis. moderate constipation. URINARY BLADDER: Suboptimal secondary to streak artifact REPRODUCTIVE SYSTEM: The uterus is absent. PNEUMOPERITONEUM: None PERITONEAL FLUID:None BONY STRUCTURES: Right hip prosthesis. Degenerative change. ABDOMINAL WALL: Unremarkable abdominal pelvic phleboliths. CT/CT abdomen pelvis wo con IMPRESSION: No acute findings. No visible stones. No hydronephrosis. Tiny hypodense and hyperdense renal cysts on the left. Impression dictated by: Ian Carney M.D.08/15/2024 10:25 AM Dictation Location: [place] Electronically authenticated by: [id number] Y Date: 08/15/2024 10:25
== END 2024-08-15 09:39 | disposition home or self-care (01) ==
LOC: CT 09:38
PROVIDERS: PCP Family Medicine; Visit Provider Urology
DX: N20.1 Calculus of ureter (principal); N28.1 Cyst of kidney, acquired
CPT/HCPCS: 74176

== ENCOUNTER 2024-08-22 06:42 | Day surgery (SDC) | payer MEDICARE, SELFPAY ==
--- OUTSIDE RECORDS SUMMARY | 2024-08-22 06:48 | XMS_ITS | CCD ---
Author Organization [facility] Care Team Providers Care Wood Bucker Name Role Phone PHYSICIAN, DEFAULT Unavailable Unavailable PHYSICIAN, DEFAULT Unavailable Unavailable Elliot Starks MD Primary Care Provider DR ELLIOT STARKS Primary Care Unavailable ANETA EDUARDO Admitting Unavailable ANETA EDUARDO Attending Unavailable ANETA EDUARDO Consulting Unavailable RAUDEL, DR ELLITO Nayak Admitting Unavailable STARKS, DR ELLIOT Nayak Attending Unavailable RAUDEL, DR ELLIOT Nayak Primary Care Unavailable RAUDEL, DR ELLIOT Nayak Consulting Unavailable RAUDEL, DR ELLIOT Nayak Primary Care Unavailable PAY, DR MANN Consulting Unavailable PAY, DR MANN Admitting Unavailable PAY, DR MANN Attending Unavailable BRODERICK, LUANA Consulting Unavailable JOAQUÍN ATKINS Consulting Unavailable Elliot Starks Unavailable Elliot Starks MD Primary Care Provider [phone] MD Elloit Starks Attending Provider Elliot Starks Admitting Unavailable Elliot Starks Attending Unavailable ELLIOT STARKS Primary Care Physician [phone] Elliot Starks MD Primary Care Provider Melchor [...] ELLIOT STARKS Primary Care Unavailable Agusto VILLEGAS, Andrius Vytautbrendon Attending Unavailable Gieditis , Andrius Vytautas Attending Unavailable Gieditis , Andrius Vytautas Attending Unavailable Agusto VILLEGAS, Andrius Vytautas Attending Unavailable Agusto VILLEGAS, Andrius Vytautas Attending Unavailable Elliot Starks MD Primary Care Provider [phone] Elliot Starks MD Primary Care Provider Alfreda Miller Attending Unavailable Jacqui, Maria E Attending Unavailable Jacqui, Maria E Attending Unavailable Jacqui, Maria E Admitting Unavailable Jacqui, Maria E Attending Unavailable Jacqui, Maria E Admitting Unavailable STARKS, ELLIOT Primary Care Unavailable SELF, SELF Referring Unavailable BROCWELL, DIVINE M Attending Unavailable BROCWELL, DIVNIE M Attending Unavailable STARKS, ELLIOT Primary Care [...] Care Unavailable BROCWELL, DIVINE M Attending Unavailable Elliot Starks MD Primary Care Provider Allergies Allergy Classification Reported Allergen(s) Allergy Type Date of Onset Reaction(s) Facility (20 sources) Acetaminophen / HYDROcodone; Translations: [HYDROCODONE-ACET AMINOPHEN] Drug Allergy 03-19-20 17 Unknown, Itching, Nausea Only, Rash [facility] (20 sources) Baclofen; Translations: [baclofen] Drug Allergy 03-19-20 17 Unknown, Itching, Rash [facility] (20 sources) Codeine; Translations: [codeine] Drug Allergy 08-09-19 09 Unknown, Itching, Rash [facility] (20 sources) levoFLOXacin; Translations: [levofloxacin] Drug Allergy 03-19-20 17 Unknown, Itching, Nausea Only, Rash [facility] (20 sources) Morphine; Translations: [morphine] Drug Allergy 08-09-19 09 Hives [facility] (16 sources) oxyCODONE Drug All[facility] 12-03-19 [facility] (10 sources) Penicillins; Translations: [PENICILLINS] Drug Allergy 12-03-19 16 Hives, Rash [facility] (1 source) Baclofen Drug Allergy [facility] (1 source) Codeine Drug Allergy [facility] (14 sources) levoFLOXacin; Translations: [Levaquin] Drug Allergy Unknown [facility] (1 source) Morphine Drug Allergy 05-04-18 94 [facility] (1 source) oxyCODONE Drug Allergy 05-04-19 05 [facility] (1 source) Penicillins Drug allergy (disorder) 05-04-18 93 [facility] (3 sources) traMADol; Translations: [Ultram] Drug Allergy [facility] (11 sources) Codeine Drug Allergy Unknown [employer] [facility] Other (17 sources) Penicillin; Translations: [penicillin] Drug Allergy Unknown [facility] (20 sources) traMADol; Translations: [tramadol] Drug Allergy 07-13-19 20 Itching [facility] (20 sources) zolpidem; Translations: [zolpidem] Drug Allergy 07-04-19 23 Unknown, Hives [facility] (11 sources) Penicillins Drug Allergy 12-03-19 16 Hives, Rash [facility] (1 source) Non-steroidal anti-inflammatory agent Drug allergy 02-02-20 13 Unknown [employer] Other (20 sources) sulfADIAZINE; Translations: [SULFADIAZINE] Drug Allergy 07-04-19 23 Comment:Sulfa [facility] (1 source) Ultram *ANALGESICS - OPIOID* Propensity to adverse reactions Unknown [employer] Other (1 source) Vioxx *ANALGESICS - ANTI-INFLAMMATORY * Propensity to adverse reactions Unknown [employer] Other (1 source) Penicillin G Benzathine & Proc Drug allergy Unknown [employer] Other (1 source) Morphine Sulfate (Concentrate) *ANALGESICS - OPIOI Propensity to adverse reactions Unknown [employer] Other (1 source) Allergies Reconciled Propensity to adverse reactions Unknown [employer] Other (1 source) patient allergy list reviewed by nurse or physicia Propensity to adverse reactions 02-02-20 13 Comment:Done [employer] Other (1 source) Vicodin *ANALGESICS - OPIOID* Propensity to adverse reactions Unknown [employer] Other (5 sources) calcitonin Drug allergy 10-28-19 24 Unknown, [facility] (12 sources) Penicillins Propensity to adverse reactions to drug 05-14-19 24 [facility] (1 source) Acetaminophen / HYDROcodone; Translations: [Vicodin] Drug Allergy [facility] (1 source) Adhesive Tape; Translations: [Tape] Propensity to adverse reactions (disorder) [facility] (10 sources) Latex Propensity to adverse reactions to drug 06-19-19 24 [facility] (10 sources) *Adhesive Tape Propensity to adverse reactions 07-04-19 23 [facility] (8 sources) Cephalexin Drug Allergy 07-09-19 24 Nausea Only, Dry Mouth, Flushing [facility] (15 sources) Adhesive agent; Translations: [ADHESIVE] Propensity to adverse reactions to drug (disorder) 07-04-19 23 [facility] (19 sources) rofecoxib; Translations: [ROFECOXIB] Drug Allergy 07-04-19 23 [facility] (15 sources) PENICILLIN G BENZATHIN,PROCAIN ; Translations: [PENICILLIN G BENZATHIN,PROCAIN ] Propensity to adverse reactions to drug (disorder) 07-04-19 23 [facility] (4 sources) Acetaminophen Drug Allergy 10-28-19 24 [facility] (4 sources) HYDROcodone Drug Allergy 10-28-19 24 [facility] (4 sources) Penicillin G Benzathine Allergy to substance 10-28-19 24 [facility] (1 source) Morphine; Translations: [Morphine Sulfate] Drug Allergy [facility] (1 source) zolpidem; Translations: [Ambien] Drug Allergy [facility] (2 sources) Penicillins Propensity to adverse reactions to drug 12-03-19 16 Rash, Hives [facility] Medications Current Medications Medication Drug Class(es) Dates Sig (Normalized) Sig (Original) apixaban 5 mg oral tablet (20 sources) Factor Xa Inhibitor Start: 08-10-2024 ELIQUIS 5 mg tablet Indications: Paroxysmal atrial fibrillation (CMS-HCC) TAKE 1 TABLET TWICE A DAY 180 tablet 08/10/2024 Active Start: 07-07-2023 End: 07-12-2023 take 2.5 mg [...] April 30, 2024 10:34am Start: 08-31-2017 End: 08-10-2024 ELIQUIS 5 mg tablet take 1 t ablet twice a day 180 tablet 1 01/05/2024 08/10/2024 Discontinued take 2 tablets by mo uth every twelve hours apixaban 2.5 MG tablet Take 2 tablets by mouth every 12 hours. Active apixaban 2.5 MG tablet Take by mouth every 12 hours. 0 Active Comment on above: Take 5 mg by mouth t wice daily. ascorbic acid 226 mg / beta carotene 38340 unt / cuprous oxide 0.8 mg / dl-alpha tocopheryl acetate 200 unt / zinc oxide 34.8 mg oral capsule (7 sources) Vitamin C Start: 10-28-2023 take 1 capsule by mouth in the morning vitamins A,C,U-ukfa-ijwuqh (ICAPS AREDS) 4,296 mcg-226 mg-90 mg capsule Take 1 capsule by mouth in the morning and 1 capsule before bedtime. 10/28/2023 Active atenolol 50 mg oral tablet (20 sources) beta-Adrenergic Eli Start: 06-22-2024 atenoloL (TENORMIN) 50 mg tablet TAKE ONE AND ONE-HALF TABLETS IN THE MORNING 135 tablet 1 07/06/2024 Active Start: 2023 End: 2023 take 75 [...] x 1 month, then 2x/week for maintainence, [facility]/pharmacy #[id number], 165, cm, 02/11/23 10:41:00 EDT, Height/Length Dosing, 77.5, kg, 02/11/23 10:41:00 EDT, Weight Dosing 02/11/2023 Active Start: 02-11-2023 Estrace 0.1 mg /g Cream See Instructions, 42.5 gm, Refill(s) 3, apply pea size amount to urethra/inner vagina 3x/week x 1 month, then 2x/week for maintainence, [facility]/pharmacy #[id number], 165, cm, 02/11/23 10:41:00 [...] 1 tablet (50 mg total) before bedtime. 180 tablet 1 07/28/2024 Active Start: 07-15-2023 End: 08-06-2024 take 1 [...] oral tablet (20 sources) Thiazide Diuretic Start: hydroCHLOROthiazide (HYDRODIURIL) 25 mg tablet TAKE 1 TABLET DAILY 90 tablet 08/04/2024 Active Start: 09-18-2022 End: 08-04-2024 hydroCHLOROthiazide (HYDRODI URIL) 25 mg tablet take 1 tablet daily 90 tablet 3 08/13/2023 08/04/2024 Discontinued hydroCHLOROthiazide 25 mg / losartan potassium 100 mg oral tablet (4 sources) Thiazide Diuretic, Angiotensin 2 Receptor Eli Start: 07-28-2018 losartan-hydrochlorothiazide (HYZAAR) 100-25 mg per tablet Iron Chews (1 source) Start: 02-11-2023 take 1 mg by mouth once daily Iron Chews mg, Oral, Daily, Refills(s) 0 Start Date: 02/11/23 Status: Ordered lifitegrast 50 mg/ml ophthalmic solution (4 sources) Lymphocyte Function-Assoc iated Antigen-1 Antagonist Start: 03-10-2019 XIIDRA 5 % dpet Lisinopril (20 sources) Angiotensin Converting Enzyme Inhibitor Start: 03-21-2024 Lisinopril 20 mg tablet Acti ve 0 .ROUTE .COMPLEX 90 March 21, 2024 [...] Daily, # 30 tab(s), Refills(s) 11, Pharmacy: [facility]/pharmacy #[id number], 165, cm, 02/11/23 10:41:00 EDT, Height/Length Dosing, 77.5, kg, 02/11/23 10:41:00 EDT, Weight Dosing Start Date: 02/11/23 Status: Ordered Multiple Vitamin (multivitamin) capsule (8 sources) take 1 capsule by mouth once daily Multiple Vitamin (multivitamin) capsule Take 1 capsule by mouth daily. Active Aleve (18 sources) Nonsteroidal Anti-inflammatory Drug Start: 06-22-19 Aleve [...] for 7 days Jun, Active NON FORMULARY (14 sources) NON FORMULARY Me d Name:Neuveria vitamin [...] Start: 04-30-2024 take 1 capsule by mo mah once daily Omeprazole 40 mg capsule,delayed release(DR/EC) [...] 02/11/23 Status: Ordered take 1 capsule by [facility] in the morning omeprazole (PriLOSEC) 20 mg capsule Take 1 capsule (20 mg total) by mouth in the morning. Active take 20 mg by mouth once daily in the morning OMEPRAZOLE PO Take 20 mg by mouth daily. am Active Omeprazole (PRIL OSEC) 40 mg capsule Take 20 mg by mouth twice daily. 0 Active take 1 capsule by [facility] once daily omeprazole [address] Take 1 capsule by mouth daily. 0 Active Omeprazole 40 mg TAKE 2 CAPSULES DAILY Active take 1 capsule by [facility] once daily Omeprazole 40 MG 1 [...] Active Start: 08-11-2022 take 1 tablet by [facility] every twelve hours Bactrim DS 800-160 [...] Mixed incontinence Trospium Chlorid e Active Vitamins A,C,P-Oscy-Udjrym (Preservision Areds) 4,296 mcg-226 mg-90 mg capsule (4 sources) Start: 10-28-2023 take 1 capsule by mouth twice daily Vitamins A,C,C-Weho-Dledly (Preservision Areds) 4,296 mcg-226 mg-90 mg capsule Active 1 CAP PO Twice daily October 27, 2023 11:00pm Start: 10-28-2023 take 1 capsule by mo uth twice daily Vitamins A,C,B-Rivv-Qzvoyp (Preservision Areds) 4,296 mcg-226 mg-90 mg capsule [...] Start: 07-07-2023 take 2 tablets by mo [facility] every four hours as needed Acetaminophen 325 MG tablet Take 2 tablets by mouth every 4 hours as needed for Mild Pain. 50 tablet 1 07/07/2023 Active Start: 07-07-2023 take 1 dose by mouth every vnice r 1,000 mg, Oral, ONCE DIRECTED, 1 [...] Post-op/Post-Proc docusate sodium 50 mg / sennosides, nursing home 8.6 mg oral tablet (1 source) Start: [...] (20 sources) Start: 06-22-2024 Potassium Chlo ride (Yyn-Vtne-Gmt 10) 10 mEq oral tablet, extended release 10 mEq = 1 tab(s), Refills(s) 0 Start Date: 06/22/24 Status: Ordered Repeat number: 1 Start: 06-22-2024 Potassium Chlo ride (Ulq-Pmtn-Vxx 10) 10 mEq oral tablet, extended release [...] Other residential (current) drug therapy; Translations: [OTH NURSING HOME CURRENT DRUG THERAPY] Onset: 06-11-2022 Episodic Other aftercare (2 sources) Long-term current use of anticoagulant; Translations: [MCC [...] Problem Date Documented Date Episodic/Chronic Cardiac dysrhythmias (14 sources) Palpitations; Translations: [Palpitations] Onset: 06-30-2018 08-16-2021 Episodic Coronary atherosclerosis and other heart disease (18 sources) 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 Performing Locations R1: This test was performed at: [facility], [address] [place] [address], [address] [place] [address], [facility] Comment on above: Performed By: #### 2 [id number] #### [facility] [address] [place] [address] Ambulatory Visit Summaryon 0 06-22-2024 Ambulatory Visit [...] 40 mg Cap-DR) potassium chloride (Potassium Chloride (Hsh-Eyvw-Msk 10) 10 mEq oral tablet, extended release) [...] 1 Capsules Unchanged potassium chloride (Potassium Chloride (Gig-Enfu-Suh 10) 10 mEq oral tablet, extended release) [...] for choosing us for your care. Normal [facility] URINALYSISOrdered By: Tien Lyon on 06-22-2024 [...] that meet specific criteria set forth by [facility]. Epithelial cells.squamous Auto (Urine sed) [...] (06/22/24 1:48 PM) Invalid Interpretation Code 0-5 [facility] [place] Auto SS URINALYSISOrdered By: Catina Corona on 06-22-2024 UA Spec Desc Random Urine (06/22/24 1:48 PM) Normal [facility] [place]A Auto SS Urinalysis with Microon 06-04 Bacteria Auto Ql (U) 1+ /HPF Abnormal Trace [facility] Comment on above: Performed By: #### 4 [id number] #### [facility] [address] [place] [address] Bilirubin Ql (U) Negative Normal Negative [facility] Comment on above: Performed By: #### 4 [id number] #### [facility] [address] [place] [address] Clarity (U) Clear Normal Clear [facility] Comment on above: Performed By: #### 4 [id number] #### [facility] [address] [place] [address] Color (U) Light-Yellow Normal Yellow [facility] Comment on above: Result Comment: Micr oscopic readings are only performed on those samples that meet specific criteria set forth by [facility]. Performed By: #### 4 [id number] #### [facility] [address] [place] [address] Epithelial cells.squamous Auto (Urine sed) [#/Area] 0-2 Invalid Interpretation Code [facility] Comment on above: Performed By: #### 4 [id number] #### [facility] [address] [place] [address] Glucose Ql (U) Negative Normal Negative [facility] Comment on above: Performed By: #### 4 [id number] #### [facility] [address] [place] [address] Hemoglobin Auto test strip (U) [Mass/Vol] 2+ Abnormal Negative [facility] Comment on above: Performed By: #### 4 [id number] #### [facility] [address] [place] [address] Ketones Auto test strip Ql (U) Negative Normal Negative [facility] Comment on above: Performed By: #### 4 [id number] #### [facility] [address] [place] [address] Leukocyte esterase Auto test strip Ql (U) 250 Felipe/uL Abnormal Negative [facility] Comment on above: Performed By: #### 4 [id number] #### [facility] [address] [place] [address] Mucus Auto Ql (U) Negative Normal Negative [facility] Comment on above: Performed By: #### 4 [id number] #### [facility] [address] [place] [address] Nitrite Auto test strip Ql (U) Negative Normal Negative [facility] Comment on above: Performed By: #### 4 [id number] #### [facility] [address] [place] [address] pH (U) 6.0 [pH] Invalid Interpretation Code 5.0-9.0 [facility] Comment on above: Performed By: #### 4 [id number] #### [facility] [address] [place] [address] Protein Ql (U) Negative Normal Negative [facility] Comment on above: Performed By: #### 4 [id number] #### [facility] [address] [place] [address] RBC Ql (U) 4-20 Abnormal 0-3 [facility] Comment on above: Performed By: #### 4 [id number] #### [facility] [address] [place] [address] Specific gravity (U) [Rel density] 1.013 Invalid Interpretation Code 1.005-1.030 [facility] Comment on above: Performed By: #### 4 [id number] #### [facility] [address] [place] [address] Urobilinogen (U) [Mass/Vol] Negative Normal Negative [facility] Comment on above: Performed By: #### 4 [id number] #### [facility] [address] [place] [address] WBC Auto (Urine sed) [#/Area] 31-75 Abnormal 0-5 [facility] Comment on above: Performed By: #### 4 [id number] #### [facility] [address] [place] [address] Type of Urine collection method Random Urine Normal [facility] Comment on above: Performed By: #### 4 [id number] #### [facility] [address] [place] [address] Urology Office/Clinic Noteon 06-22-2024 Urology Office/Clinic Note [...] well nourished, in no acute distress. Assessment/Plan [facility] patient, last seen in-office 05/27/23 78 y/o [...] pending completion of cystoscopy w/ KML Ordered: 28658 Measure Post Void residual urine and/or bladder [...] Urnls Dip Stick Auto w/o Microscopy POC 14584 2. Frequent UTI (N39.0: Urinary tract infection, [...] UTIs for (more content not included)... 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 MAMM SCREENING BILATERAL W CAD MAMM [...] 2:57 PM 2 a FU ACR Normal [facility] Shane 09-17-2023 CNPN Telephone (HEMASA) TCBETTIE MONTOYA ([id number]) 1945 F Date Time Provider Department 09/17/23 MATT ADAMS During your visit today, we recorded the following information about you: Matt Adams RN 09/17/2023 10:20 AM Signed Pt called to request yearly Mammogram order I have pended order as previously completed [phone] BR/: please review and sign if agreeable RICARDO Lopez Natalie, RN 09/17/2023 1:31 PM Signed Order faxed to [facility] Pt aware. Matt Adams RN Allergies As [...] of breast [Z12.31] Order(s):SHANE SCREENING W YAW [[id number]] Order #: [id number] FUTURE Prescriptions as of 09/17/2023 - lisinopril [...] (HCC) [I48.20] 03/24/2018 Encounter Status:Closed by ANDREW CHIO on 09/17/23 Normal [facility] CBC AND AUTO DIFFon 07-15-19 ABSOLUTE BASOPHIL 0.1 X10E9/L Normal 0.0-0.2 [facility] Comment on above: Performed By: #### C BCA, 32154-8, PINR, 20256-9, CMP, 84226-2, 65781-8, THYR, 61119-3 #### [facility] ([id number]) [address] [place] [address], [place] [address] ABSOLUTE NEUTROPHIL 2.8 X10E9/L Normal 1.5-6.6 [facility] Comment on above: Performed By: #### C BCA, 04084-9, PINR, 30787-7, CMP, 61582-7, 53407-4, THYR, 91884-0 #### [facility] ([id number]) [address] [place] [address] Basophils/100 WBC (Bld) 1.3 % Normal [facility] Comment on above: Performed By: #### C BCA, 75497-4, PINR, 37394-0, CMP, 31974-7, 15889-5, THYR, 41142-8 #### [facility] ([id number]) [address] [place] [address] Eosinophils (Bld) [#/Vol] 0.7 10*3/uL High 0.0-0.4 [facility] Comment on above: Performed By: #### C BCA, 61861-3, PINR, 87703-5, CMP, 06578-5, 95252-3, THYR, 64489-8 #### [facility] ([id number]) [address] [place] [address] Eosinophils/100 WBC (Bld) 11.9 % Normal [facility] Comment on above: Performed By: #### C BCA, 91232-2, PINR, 40423-0, CMP, 86361-2, 79352-2, THYR, 48707-9 #### [facility] ([id number]) [address] [place] [address] Erythrocyte distribution width (RBC) [Ratio] 13.5 % Normal 11.5-15.0 [facility] Comment on above: Performed By: #### C BCA, 60330-9, PINR, 55566-0, CMP, 22043-1, 19901-5, THYR, 33467-9 #### [facility] ([id number]) [address] [place] [address] Hematocrit (Bld) [Volume fraction] 38.5 % Normal 35-47 [facility] Comment on above: Performed By: #### C BCA, 57345-7, PINR, 49269-3, CMP, 10800-9, 24758-5, THYR, 42750-1 #### [facility] ([id number]) [address] [place] [address] Hemoglobin (Bld) [Mass/Vol] 13.3 g/dL Normal 11.7-15.5 [facility] Comment on above: Performed By: #### C BCA, 69540-1, PINR, 49133-7, CMP, 88954-2, 65850-9, THYR, 80236-4 #### [facility] ([id number]) [address] [place] [address] Lymphocytes (Bld) [#/Vol] 1.8 10*3/uL Normal 1.0-3.5 [facility] Comment on above: Performed By: #### C BCA, 32645-3, PINR, 72425-1, CMP, 15571-5, 00794-7, THYR, 56339-4 #### [facility] ([id number]) [address] [place] [address] Lymphocytes/100 WBC (Bld) 29.4 % Normal [facility] Comment on above: Performed By: #### C BCA, 90464-2, PINR, 70597-7, CMP, 65280-8, 69429-6, THYR, 80733-4 #### [facility] ([id number]) [address] [place] [address]15 MCH (RBC) [Entitic mass] 32.8 pg Normal 27-34 [facility] Comment on above: Performed By: #### C BCA, 90364-6, PINR, 53180-6, CMP, 85785-9, 80907-9, THYR, 57471-7 #### [facility] ([id number]) [address] [place] [address]19 MCHC (RBC) [Mass/Vol] 34.4 g/dL Normal 32-36 [facility] Comment on above: Performed By: #### C BCA, 50955-0, PINR, 86011-9, CMP, 07512-9, 80919-4, THYR, 61723-3 #### [facility] ([id number]) [address] [place] [address] MCV (RBC) [Entitic vol] 95 fL Normal 80-100 [facility] Comment on above: Performed By: #### C BCA, 55044-7, PINR, 23495-9, CMP, 87444-6, 67645-1, THYR, 07805-1 #### [facility] ([id number]) [address] [place] [address] Monocytes (Bld) [#/Vol] 0.8 10*3/uL Normal 0-0.9 [facility] Comment on above: Performed By: #### C BCA, 93151-2, PINR, 71234-2, CMP, 77439-5, 46475-7, THYR, 36603-6 #### [facility] ([id number]) [address] [place] [address] 36900 Monocytes/100 WBC (Bld) 13.2 % Normal [facility] Comment on above: Performed By: #### C BCA, 47877-1, PINR, 85260-5, CMP, 69382-2, 73757-4, THYR, 49949-5 #### [facility] ([id number]) [address] [place] [address] 68633 Neutrophils/100 WBC (Bld) 44.2 % Normal [facility] Comment on above: Performed By: #### C BCA, 14107-9, PINR, 21867-2, CMP, 17101-7, 98899-8, THYR, 62642-1 #### [facility] ([id number]) [address] [place] [address] 51404 Platelet mean volume (Bld) [Entitic vol] 6.9 fL Low 7-12 [facility] Comment on above: Performed By: #### C BCA, 77410-9, PINR, 20850-7, CMP, 77241-0, 12621-0, THYR, 01672-5 #### [facility] ([id number]) [address] [place] [address] 64616 Platelets (Bld) [#/Vol] 340 10*3/uL Normal 150-450 [facility] Comment on above: Performed By: #### C BCA, 92065-3, PINR, 64154-4, CMP, 88334-5, 85485-5, THYR, 43877-7 #### [facility] ([id number]) [address] [place] [address] 32744 RBC COUNT 4.05 X10E12/L Normal 3.80-5.20 [facility] Comment on above: Performed By: #### C BCA, 33072-3, PINR, 10305-6, CMP, 58771-9, 26488-4, THYR, 21747-6 #### [facility] ([id number]) [address] [place] [address] 12536 WBC (Bld) [#/Vol] 6.2 10*3/uL Normal 4.0-11.0 [facility] Comment on above: Performed By: #### C BCA, 53236-5, PINR, 77297-4, CMP, 83458-4, 76477-5, THYR, 35815-7 #### [facility] ([id number]) [address] [place] [address] 53245 COMPREHENSIVE METABOLIC PANE Roland 07-15-2023 Albumin [Mass/Vol] 3.5 g/dL Normal 3.2-5.3 [facility] Comment on above: Performed By: #### C BCA, 90451-1, PINR, 92107-0, CMP, 95574-6, 11977-1, THYR, 48713-0 #### [facility] ([id number]) [address] [place] [address] 47854 ALP [Catalytic activity/Vol] 52 U/L Normal 39-130 [facility] Comment on above: Performed By: #### C BCA, 36952-9, PINR, 61347-3, CMP, 68335-2, 82420-3, THYR, 99347-0 #### [facility] ([id number]) [address] [place] [address] 32768 ALT [Catalytic activity/Vol] 13 U/L Normal 0-31 [facility] Comment on above: Performed By: #### C BCA, 79743-0, PINR, 98843-6, CMP, 69718-3, 96170-6, THYR, 63673-2 #### [facility] ([id number]) [address] [place] [address] 52129 Anion gap [Moles/Vol] 10 mmol/L Normal 5-15 [facility] Comment on above: Performed By: #### C BCA, 92910-0, PINR, 47820-4, CMP, 92946-0, 70401-3, THYR, 22040-5 #### [facility] ([id number]) [address] [place] [address] 21577 AST [Catalytic activity/Vol] 24 U/L Normal 0-41 [facility] Comment on above: Performed By: #### C BCA, 19551-6, PINR, 16226-7, CMP, 95044-1, 14472-2, THYR, 25182-5 #### [facility] ([id number]) [address] [place] [address] 27326 Bilirubin [Mass/Vol] 0.7 mg/dL Normal 0.3-1.2 [facility] Comment on above: Performed By: #### C BCA, 83897-7, PINR, 54534-8, CMP, 61570-0, 41804-9, THYR, 94855-7 #### [facility] ([id number]) [address] [place] [address] 77539 Calcium [Mass/Vol] 9.4 mg/dL Normal 8.5-10.5 [facility] Comment on above: Performed By: #### C BCA, 60511-5, PINR, 04079-0, CMP, 28876-0, 81769-2, THYR, 26383-2 #### [facility] ([id number]) [address] [place] [address] 94381 Chloride [Moles/Vol] 102 mmol/L Normal 98-109 [facility] Comment on above: Performed By: #### C BCA, 42235-4, PINR, 86580-2, CMP, 21606-8, 22301-8, THYR, 39792-6 #### [facility] ([id number]) [address] [place] [address] 86119 CO2 [Moles/Vol] 27 mmol/L Normal 22-32 [facility] Comment on above: Performed By: #### C BCA, 43080-1, PINR, 06269-2, CMP, 93544-9, 55006-1, THYR, 37717-7 #### [facility] ([id number]) [address] [place] [address] 98834 Creatinine [Mass/Vol] 1.21 mg/dL High 0.40-1.00 [facility] Comment on above: Result Comment: METH OD TRACEABLE TO IDMS STANDARD Performed By: #### C BCA, 21233-0, PINR, 36630-4, CMP, 73214-5, 50296-9, THYR, 21478-6 #### [facility] ([id number]) [address] [place] [address] 23903 GFR/1.73 sq M.predicted among non-blacks MDRD (S/P/Bld) [Vol rate/Area] 46 mL/min/{1.73_m2} Low >59 [facility] Comment on above: Result Comment: Reported eGFR is based on the CKD-EPI 1 equation that does not use a race coefficient. Performed By: #### C BCA, 47997-5, PINR, 25777-3, CMP, 99612-9, 53882-1, THYR, 29621-4 #### [facility] ([id number]) [address] [place] [address], [place] [address] Glucose [Mass/Vol] 120 mg/dL High 65-99 [facility] Comment on above: Performed By: #### C BCA, 76076-7, PINR, 48792-4, CMP, 99681-4, 10024-6, THYR, 49054-2 #### [facility] ([id number]) [address] [place] [address], [place] [address] Potassium [Moles/Vol] 4.0 mmol/L Normal 3.5-5.0 [facility] Comment on above: Performed By: #### C BCA, 14674-3, PINR, 76753-4, CMP, 35936-3, 31553-7, THYR, 66030-0 #### [facility] ([id number]) [address] [place] [address], [place] [address] Protein [Mass/Vol] 6.8 g/dL Normal 6.0-8.0 [facility] Comment on above: Performed By: #### C BCA, 76062-2, PINR, 76861-4, CMP, 15074-0, 95977-2, THYR, 19445-7 #### [facility] ([id number]) [address] [place] [address], [place] [address] Sodium [Moles/Vol] 139 mmol/L Normal 134-146 [facility] Comment on above: Performed By: #### C BCA, 68228-9, PINR, 57738-1, CMP, 92283-2, 64468-1, THYR, 39231-6 #### [facility] ([id number]) [address] [place] [address] 92658 Urea nitrogen [Mass/Vol] 31 mg/dL High 5-27 [facility] Comment on above: Performed By: #### C BCA, 94059-2, PINR, 10567-5, CMP, 72820-2, 05219-9, THYR, 97915-5 #### [facility] ([id number]) [address] [place] [address] 60564 Fibrin D-dimer DDU (PPP) [Ma ss/Vol]on 07-15-2023 D DIMER 220 ng/mL DDU Normal <255 [facility] Comment on above: Result Comment: Results <255 ng/mL DDU: The presence of a VTE can safely be excluded with a negative D-Dimer result and Wells score. A negative result doesn't exclude the possibility of DIC. The test be repeated along with other diagnostic tests if the patient's symptoms persist or worsen. [email or web address] Performed By: #### C BCA, 85482-6, PINR, 52567-0, CMP, 01580-8, 08498-5, THYR, 93474-2 #### [facility] ([id number]) [address] [place] [address] 62622 MAGNESIUMon 07-15-2023 Magnesium [Mass/Vol] 1.8 mg/dL Normal 1.8-2.6 [facility] Comment on above: Performed By: #### C BCA, 32723-4, PINR, 75218-7, CMP, 26920-7, 62191-7, THYR, 87381-1 #### [facility] ([id number]) [address] [place] [address] 76581 Natriuretic peptide B [Mass/ Vol]on 07-15-2023 Natriuretic peptide B (Bld) [Mass/Vol] 119 pg/mL High <100.0 [facility] Comment on above: Performed By: #### C BCA, 66391-0, PINR, 47983-7, CMP, 81234-7, 47969-3, THYR, 91984-1 #### [facility] ([id number]) [address] [place] [address], [place] [address] PROTIME AND INRon 07-15-2023 INR Coag (PPP) [Relative time] 1.8 {INR} High 0.8-1.1 [facility] Comment on above: Performed By: #### C BCA, 62681-8, PINR, 89165-1, CMP, 13200-1, 35710-6, THYR, 81238-8 #### [facility] ([id number]) [address] [place] [address], [place] [address] PT Coag (PPP) [Time] 20.8 s High 9.8-13.2 [facility] Comment on above: Result Comment: NEW REFERENCE RANGE Performed By: #### C BCA, 24392-9, PINR, 07390-8, CMP, 53518-4, 20384-1, THYR, 02488-5 #### [facility] ([id number]) [address] [place] [address], [place] [address] THYROID PROFILEon 07-15-2023 Free T4 [Mass/Vol] 1.25 ng/dL Normal 0.61-1.60 [facility] Comment on above: Performed By: #### C BCA, 40891-9, PINR, 97448-1, CMP, 00111-4, 57137-0, THYR, 78651-9 #### [facility] ([id number]) [address] [place] [address], [place] [address] TSH 1.69 uIU/mL Normal 0.49-4.67 [facility] Comment on above: Performed By: #### C BCA, 42235-5, PINR, 58506-2, CMP, 07112-2, 96709-4, THYR, 81552-9 #### [facility] ([id number]) [address] [place] [address] 92011 TROPONIN Ion 07-15-2023 Troponin I.cardiac [Mass/Vol] 0.01 ng/mL Normal 0.00-0.04 [facility] Comment on above: Performed By: #### C BCA, 37445-9, PINR, 33968-2, CMP, 92812-5, 72083-1, THYR, 02719-8 #### [facility] ([id number]) [address] [place] [address] 80512 XR CHEST 2 VWSon 07-15-2023 XR CHEST 2 VWS XR CHEST 2 VWS History: chest pressure Exam/Technique: PA and lateral chest Comparison: None. Findings: There is no evidence of active pulmonary or pleural disease. Cardiac and mediastinal contours are within normal limits. Left-sided surgical clips. Granulomatous changes. IMPRESSION: No active pulmonary disease. Finalized by Adrian Ervin MD on 07/15/2023 1:14 PM Normal [facility] aPTT Coag (PPP) [Time]on aPTT Coag (Bld) [Time] 36 s Normal 26-37 [facility] Comment on above: Result Comment: NEW REFERENCE RANGE Performed By: #### C BCA, 06152-8, PINR, 48239-0, CMP, 52838-9, 76556-2, THYR, 61822-3 #### [facility] ([id number]) [address] [place] [address] 16528 BASIC METABOLIC PANELon - Anion gap [Moles/Vol] 1 mmol/L MMOL/L [facility] Calcium [Mass/Vol] 8.7 mg/dL [facility] Chloride [Moles/Vol] 103 mmol/L [facility] Comment on above: Please note: Triglyc eride levels of 600mg/dL or higher may positively bias chloride results by approximately 2.1 mmol CO2 [Moles/Vol] 30 mmol/L [facility] Creatinine [Mass/Vol] 1.10 mg/dL [facility] GFR COMMENT Average GFR for 70+ years old = 75. [facility] Comment on above: Chronic Kidney disea se, GFR = <60. Kidney failure, GFR = <15. The GFR estimate is not adjusted for extreme body surface area or acute process, nor has it been validated for women or ethnic groups other than and . GFR/1.73 sq M.predicted among blacks MDRD (S/P/Bld) [Vol rate/Area] 62 mL/min/{1.73_m2} ml/min/1.73s q.m [facility] GFR/1.73 sq M.predicted among non-blacks MDRD (S/P/Bld) [Vol rate/Area] 51 mL/min/{1.73_m2} ml/min/1.73s q.m [facility] Glucose post fast [Mass/Vol] 141 mg/dL High [facility] Comment on above: NORMAL <100 mg/dL PREDIABETES 101-126 mg/dL DIABETES 126 mg/dL or higher Interpretation and review of laboratory results Abnormal [facility] Potassium [Moles/Vol] 3.8 mmol/L [facility] Sodium [Moles/Vol] 134 mmol/L Low [facility] Urea nitrogen [Mass/Vol] 30 mg/dL High [facility] CBC, EDIF, PLATELETon 2023 ABSOLUTE BASOPHIL COUNT 0.0 10*3/uL 0.0 - 0.2 10*3/uL [facility] Basophils/100 WBC (Bld) 0.3 % 0.0 - 2.0 % [facility] Differential cell count method Nom (Bld) AUTO DIFF % [facility] Eosinophils (Bld) [#/Vol] 0.0 10*3/uL 0.0 - 0.7 10*3/uL [facility] Eosinophils/100 WBC (Bld) 0.0 % 0.0 - 11.0 % [facility] Erythrocyte distribution width (RBC) [Ratio] 13.2 % 11.5 - 14.5 % [facility] Hematocrit (Bld) [Volume fraction] 33.6 % Low 36.0 - 48.0 % [facility] Hemoglobin (Bld) [Mass/Vol] 12.0 g/dL [facility] Interpretation and review of laboratory results Abnormal [facility] Lymphocytes (Bld) [#/Vol] 1.1 10*3/uL Low 1.2 - 3.4 10*3/uL [facility] Lymphocytes/100 WBC (Bld) 16.4 % Low 20.0 - 55.0 % [facility] MCH (RBC) [Entitic mass] 33.6 pg 26.0 - 35.0 PG [facility] MCHC (RBC) [Mass/Vol] 35.6 g/dL [facility] MCV (RBC) [Entitic vol] 94.2 fL [facility] Monocytes (Bld) [#/Vol] 0.3 10*3/uL 0.0 - 0.7 10*3/uL [facility] Monocytes/100 WBC (Bld) 4.3 % 0.0 - 10.0 % [facility] Neutrophils (Bld) [#/Vol] 5.2 10*3/uL 1.4 - 6.5 10*3/uL [facility] Neutrophils/100 WBC (Bld) 79.0 % High 37.0 - 75.0 % [facility] Platelet mean volume (Bld) [Entitic vol] 7.0 fL Low [facility] Platelets (Bld) [#/Vol] 226 10*3/uL 130 - 400 10*3/uL [facility] RBC (Bld) [#/Vol] 3.57 10*6/uL Low 4.0 - 5.4 10*6/uL [facility] WBC (Bld) [#/Vol] 6.6 10*3/uL 3.6 - 11.0 10*3/uL [facility] BODY FLUID CELL COUNTon Appearance (Body fld) HAZY [facility] Color (Body fld) LIGHT YELLOW [facility] RBC Auto (Body fld) [#/Vol] 3376 /CMM [facility] Specimen source Nom (Body fld) SYNOVIAL FLUID [facility] WBC (Body fld) [#/Vol] 57 10*3/uL /CMM [facility] DIFFERENTIAL, FLUIDon 2023 BASOPHILS, FLUID 2 % [facility] Comment on above: NO REFERENCE RANGE E STABLISHED Eosinophils/100 WBC (Body fld) 4 % [facility] [employer] Comment on above: NO REFERENCE RANGE E STABLISHED Lymphocytes/100 WBC (Body fld) 22 % [facility] [employer] Comment on above: NO REFERENCE RANGE E STABLISHED MESOTHELIAL CELLS, FLUID 8 % [facility] [employer] Comment on above: NO REFERENCE RANGE E STABLISHED Monocytes+Macrophage s/100 WBC Manual cnt (Body fld) 48 % [facility] [employer] Comment on above: NO REFERENCE RANGE E STABLISHED Neutrophils/100 WBC (Body fld) 16 % [facility] [employer] Comment on above: NO REFERENCE RANGE E STABLISHED [facility] REPEAT ABO/RH (D) TYPINGon 0 07-07-2023 ABO and Rh group Nom (Bld ) Positive [facility] [employer] SCREEN: MRSA ONLY, NARES (IS OLATION SCREEN)on 07-07-2023 MRSA isol Org specific cx Ql (Nose) Negative NEGATIVE [facility] STAPHYOCOCCUS AUREUS BY PCR Negative NEGATIVE [facility] [employer] Comment on above: TESTING PERFORMED BY PCR [facility] XR Pelvis 2 Viewson 07-07-19 FINDINGS/IMPRESSION: 1. [...] or other acute bony abnormality is seen. [employer] [facility] Radiology Study observation (narrative) [employer] XR Pelvis 2 ViewsOrdered By: Parveen Mason on 07-07-2023 [facility] Work Phone: POCT EKGOrdered By: Samantha Gurrola on 06-02-2023 [facility] COBALT AND CHROMIUM,WBon Chromium (Bld) [Mass/Vol] 1.1 [facility] Comment on above: Reference range: <3. 0 Unit: ng/mL PERFORMED BY [employer] (Bld) [Mass/Vol] <1.0 [facility] Comment on above: Reference range: <3. 0 Unit: ng/mL (NOTE) Chromium and cobalt analysis performed by inductively coupled plasma/mass spectrometry (ICP/MS). Reference range is for patients with fcotv-im-gfbgy (MoM) orthopedic implants. The [place] [employer] Hip and Knee Surgeons, the [place] Academy of Orthopaedic Surgeons, and The Hip Society, have published a consensus statement, Risk Stratification Algorithm for Management of Patients with Yowxm-si-Zprcl Hip Arthroplasty. The algorithm is intended as an aid to orthopedic surgeons in the assessment and management of patients with Ghtbv-ys-Glfud bearings. The systematic risk stratification includes recommendations [...] developed and its performance characteristics determined by [employer]. It has not been cleared or approved by the Food and Drug Administration. [facility] C REACTIVE PROTEINon 024 CRP [Mass/Vol] 48.4 mg/L High 0 - 10 MG/L [facility] Interpretation and review of laboratory results Abnormal [facility] SEDIMENTATION RATE, AUTOMATE Don 05-14-2023 ESR (Bld) [Velocity] 31 mm/h High [facility] Interpretation and review of laboratory results Abnormal [facility] Urinalysis - DIPSTICKon 10-03 Appearance (U) cloudy [employer] Other Bilirubin Ql (U) small [email or web address] Other Color (U) yellow [employer] Other Glucose Ql (U) Negative [employer] Other Hemoglobin Ql (U) [employer] Other Ketones Ql (U) Negative [employer] Other Leukocyte esterase Test strip Ql (U) moderate [employer] Other Nitrite Ql (U) Positive [employer] Other pH (U) 5 [pH] [employer] Other Protein Ql (U) Negative [employer] Other Specific gravity (U) [Rel density] 1.010 [employer] Other Urobilinogen (U) [Mass/Vol] off chart [employer] Other Urinalysis - DIPSTICK [employer] Other Urine Cultureon 10-27-2022 Bacteria identified Cx Nom (U) ORGANISM: Escherichia coli (O:ESCCOL) [place] Count >100,000 Aerobic AUBREY Charge (NMIC56) --- [...] RESISTANT TO ALL B-LACTAM DRUGS. PERFORMED BY: [place] [address] PATHOLOGIST ALL TERRAIN VEHICLE RACER JOSE GUADALUPE FERGUSON M.D. Normal [facility] Comment on above: Performed By: #### C UU #### [address] Urinalysis - DIPSTICKon 06-05 Appearance (U) cloudy [employer] Other Bilirubin Ql (U) Negative [employer] Other Color (U) pale yellow [employer] Other Glucose Ql (U) Negative [employer] Other Hemoglobin Ql (U) non hem-trace [facility] [employer] Other Ketones Ql (U) trace [employer] Other Leukocyte esterase Test strip Ql (U) moderate [employer] Other Nitrite Ql (U) Negative [employer] Other pH (U) 5 [pH] [employer] Other Protein Ql (U) trace [employer] Other Specific gravity (U) [Rel density] 1.005 [employer] Other Urobilinogen (U) [Mass/Vol] normal [employer] Other Urinalysis - DIPSTICK [employer] Other CULTURE URINEon 06-11-2022 CULTURE URINE Isolate [...] F Trimethoprim/Sulfameth oxazole <=20 S F Normal [facility] Comment on above: Performed By: #### U RCX #### [facility] [address] [place] [address] Dr. Florencio Narayanan CARDIAC AMBER ADMITon 023 CK [Catalytic activity/Vol] 44 U/L Normal 26-192 [facility] Comment on above: Performed By: #### C LILIAN LOZANO CMADM #### [facility] [address] [address] [address] Florencio Narayanan CK.MB [Mass/Vol] ng/mL Normal <=3.60 [facility] Comment on above: Performed By: #### C LILIAN LOZANO CMADM #### [facility] [address] [place] [address] Dr. Florencio Narayanan HSTROP 14.6 pg/mL Normal 4.0-51.3 [facility] Comment on above: Result Comment: CUT- OFF POINTS HAVE BEEN ESTABLISHED BASED ON THE FOURTH UNIVERSAL DEFINITIONS OF MYOCARDIAL INFARCTION. THE UPPER REFERENCE LIMIT (URL) OF TROPONIN, DEFINED THE 99TH PERCENTILE OF cTnI DISTRIBUTION IN A REFERENCE POPULATION, HAS BEEN CONFIRMED THE DECISION THRESHOLD FOR NE DIAGNOSIS. Performed By: #### C LILIAN LOZANO CMADM #### [facility] [address] [place] [address] Dr. Florencio Narayanan UMER 109 ng/mL Critically high 9-82 [facility] Comment on above: Performed By: #### C LILIAN LOZANO CMADM #### [facility] [address] [place] [address] Dr. Florencio Narayanan CBC AUTO DIFFon 06-09-2022 BASO # 0.1 103/ul Normal 0.0-0.1 [facility] Comment on above: Performed By: #### C BC #### [facility] [address] [place] [address] Dr. Florencio Narayanan Basophils/100 WBC (Bld) 0.4 % Normal 0.2-2.0 [facility] Comment on above: Performed By: #### C BC #### [facility] [address] [place] [address] Dr. Florencio Narayanan EO # 0.0 103/ul Normal 0.0-0.7 [facility] Comment on above: Performed By: #### C BC #### [facility] [address] [place] [address] Dr. Florencio Narayanan Eosinophils/100 WBC (Bld) 0.2 % Critically low 0.9-7.0 [facility] Comment on above: Performed By: #### C BC #### [facility] [address] [place] [address] Dr. Florencio Narayanan Erythrocyte distribution width (RBC) [Ratio] 12.3 % Normal 11.0-15.0 [facility] Comment on above: Performed By: #### C BC #### [facility] [address] [place] [address] Dr. Florencio Narayanan Hematocrit (Bld) [Volume fraction] 38.4 % Normal 36.0-48.0 [facility] Comment on above: Performed By: #### C BC #### [facility] [address] [place] [address] Dr. Florencio Narayanan Hemoglobin (Bld) [Mass/Vol] 12.7 g/dL Normal 12.0-16.0 [facility] Comment on above: Performed By: #### C BC #### [facility] [address] [place] [address] Dr. Florencio Narayanan IG # 0.06 10e3/ul Critically high 0.00-0.03 [facility] Comment on above: Performed By: #### C BC #### [facility] [address] [place] [address] Dr. Florencio Narayanan IG % 0.5 % Normal 0.0-0.5 [facility] Comment on above: Performed By: #### C BC #### [facility] [address] [place] [address] Dr. Florencio Narayanan LYMPH # 1.0 103/ul Critically low 1.2-3.8 [facility] Comment on above: Performed By: #### C BC #### [facility] [address] [place] [address] Dr. Florencio Narayanan Lymphocytes/100 WBC (Bld) 8.4 % Critically low 20.5-60.0 [facility] Comment on above: Performed By: #### C BC #### [facility] [address] [place] [address] Dr. Florencio Narayanan MANUAL DIFF REQ NO Normal [facility] Comment on above: Performed By: #### C BC #### [facility] [address] [place] [address] Dr. Florencio Narayanan MCH (RBC) [Entitic mass] 32.4 pg Normal 26.7-34.0 [facility] Comment on above: Performed By: #### C BC #### [facility] [address] [place] [address] Dr. Florencio Narayanan MCHC (RBC) [Mass/Vol] 33.1 g/dL Normal 29.9-35.2 [facility] Comment on above: Performed By: #### C BC #### [facility] [address] [place] [address] Dr. Florencio Narayanan MCV (RBC) [Entitic vol] 98.0 fL Normal 81.0-99.0 [facility] Comment on above: Performed By: #### C BC #### [facility] [address] [place] [address] Dr. Florencio Narayanan MONO # 1.6 103/ul Critically high 0.3-0.8 [facility] Comment on above: Performed By: #### C BC #### [facility] [address] [place] [address] Dr. Florencio Narayanan Monocytes/100 WBC (Bld) 13.1 % Critically high 1.7-12.0 [facility] Comment on above: Performed By: #### C BC #### [facility] [address] [place] [address] Dr. Florencio Narayanan NEUT # 9.5 103/ul Critically high 1.4-6.5 [facility] Comment on above: Performed By: #### C BC #### [facility] [address] [place] [address] Dr. Florencio Narayanan Neutrophils/100 WBC (Bld) 77.4 % Critically high 43.0-75.0 [facility] Comment on above: Performed By: #### C BC #### [facility] [address] [place] [address] Dr. Florencio Narayanan Platelet mean volume (Bld) [Entitic vol] 9.4 fL Critically low 9.5-13.5 [facility] Comment on above: Performed By: #### C BC #### [facility] [address] [place] [address] Dr. Florencio Narayanan PLT 140 103/ul Critically low 150-450 [facility] Comment on above: Performed By: #### C BC #### [facility] [address] [place] [address] Dr. Florencio Narayanan RBC 3.92 106/ul Critically low 4.20-5.40 [facility] Comment on above: Performed By: #### C BC #### [facility] [address] [place] [address] Dr. Florencio Narayanan WBC 12.2 103/ul Critically high 4.0-11.0 The [facility] Comment on above: Performed By: #### C BC #### [facility] [address] [address] STROKE HEAD WOon [...] LUANA VILLAFANA Date: 2022-06-09 12:24 Normal [facility] Covid-19 PCR ([facility])on SARS-CoV-2 (COVID-19) RNA CHRISTOPHER+probe Ql (Unsp spec) Not detected Normal NOT DETECTED [facility] Comment on above: Result [...] for this test is supported by the [employer] History Teacher of Health and Human Service's declaration that [...] used). Performed By: #### C VDTBH #### [facility] [address] [place], [place] [address] Dr. Florencio Narayanan ER URINE PROFILEon 3 Bilirubin Ql (U) Negative Normal NEGATIVE The [facility] Comment on above: Performed By: #### Malini PIZANO UMICRO #### [facility] [address] [place] [address] Dr. Florencio Narayanan Clarity (U) CLEAR Normal CLEAR [facility] Comment on above: Performed By: #### Malini PIZANO UMICRO #### [facility] [address] [place] [address] Dr. Florencio Narayanan Color (U) LT. YELLOW Normal YELLOW [facility] Comment on above: Performed By: #### Malini PIZANO UMICRO #### [facility] [address] [place] [address] Dr. Florencio CONLEY A micrscopic examination will be performed if indicated. Normal [facility] Comment on above: Performed By: #### Malini PIZANO UMICRO #### [facility] [address] [place] [address] Dr. Florencio Narayanan Glucose Ql (U) Negative Normal NEGATIVE [facility] Comment on above: Performed By: #### Malini PIZANO UMICRO #### [facility] [address] [place] [address] Dr. Florencio Narayanan Hemoglobin Ql (U) LARGE Abnormal NEGATIVE [facility] Comment on above: Performed By: #### Malini PIZANO UMICRO #### [facility] [address] [place] [address] Dr. Florencio Narayanan Ketones Ql (U) TRACE Abnormal NEGATIVE [facility] Comment on above: Performed By: #### Malini PIZANO UMICRO #### [facility] [address] [place] [address] Dr. Florencio Narayanan LEUKOCYTES LARGE Abnormal NEGATIVE [facility] Comment on above: Performed By: #### Malini PIZANO UMICRO #### [facility] [address] [place] [address] Dr. Florencio Narayanan Nitrite Ql (U) Positive Abnormal NEGATIVE [facility] Comment on above: Performed By: #### Malini RUR, UMICRO #### [facility] [address] [place] [address] Dr. Florencio Narayanan pH (U) 5.5 [pH] Normal 5-9 [facility] Comment on above: Performed By: #### LIYAH LERO #### [facility] [address] [place] [address] Dr. Florencio Narayanan SPEC GRAVITY 1.010 Normal 1.005-<=1.[address] [place] [address] Comment on above: Performed By: #### LIYAH LERO #### [facility] [address] [place] [address] Dr. Florencio Narayanan UA PROTEIN TRACE Normal NEGATIVE/ TRACE [facility] Comment on above: Performed By: #### ADIEL LE #### [facility] [address] [place] [address] Dr. Florencio Narayanan UR MICRO IND INDICATED Normal [facility] Comment on above: Performed By: #### ADIEL LE #### [facility] [address] [place] [address] Dr. Florencio Narayanan Urobilinogen Qn (U) 0.2 {Zenia'U}/dL Normal 0.2 - 1. 0 [facility] Comment on above: Performed By: #### LIYAH LERO #### [facility] [address] [place] [address] Dr. Florencio Narayanan LIPASEon 06-09-2022 Lipase [Catalytic activity/Vol] 68.0 U/L Critically low 73.0-393.0 [facility] Comment on above: Performed By: #### C MP, LIPA, CMADM #### [facility] [address] [place] [address] Dr. Florencio Narayanan PROF 14(COMP METB)on 023 Albumin [Mass/Vol] 2.5 g/dL Critically low 3.4-5.0 [facility] Comment on above: Performed By: #### C MP, LIPA, CMADM #### [facility] [address] [place] [address] Dr. Florencio Narayanan Albumin/Globulin [Mass ratio] 0.6 {ratio} Normal [facility] Comment on above: Performed By: #### C MAURICIO LOZANOA, CMADM #### [facility] [address] [place] [address] Dr. Florencio Narayanan ALP [Catalytic activity/Vol] 150 U/L Critically high 46-116 [facility] Comment on above: Performed By: #### C MP LIPA, CMADM #### [facility] [address] [address] [address] Florencio Narayanan ALT [Catalytic activity/Vol] 27 U/L Normal 14-59 [facility] Comment on above: Performed By: #### C BLAKE LIPA, CMADM #### [facility] [address] [place] [address] Dr. Florencio Narayanan Anion gap [Moles/Vol] 12.8 mmol/L Normal [facility] Comment on above: Performed By: #### C BLAKE LIPA, CMADM #### [facility] [address] [place] [address] Dr. Florencio Narayanan AST [Catalytic activity/Vol] 31 U/L Normal 15-37 [facility] Comment on above: Performed By: #### C BLAKE LIPA, CMADM #### [facility] [address] [place] [address] Dr. Florencio Narayanan Bilirubin [Mass/Vol] 1.1 mg/dL Critically high 0.2-1.0 [facility] Comment on above: Performed By: #### C MP LIPA, CMADM #### [facility] [address] [place] [address] Dr. Florencio Narayanan Calcium [Mass/Vol] 9.1 mg/dL Normal 8.5-10.1 [facility] Comment on above: Performed By: #### C MP LIPA, CMADM #### [facility] [address] [place] [address] Dr. Florencio Narayanan Chloride [Moles/Vol] 95 mmol/L Critically low 98-107 [facility] Comment on above: Performed By: #### C MP LIPA, CMADM #### [facility] [address] [place] [address] Dr. Florencio Narayanan CO2 [Moles/Vol] 29.4 mmol/L Normal 21.0-32.0 [facility] Comment on above: Performed By: #### C MP, LIPA, CMADM #### [facility] [address] [place] [address] Dr. Florencio Narayanan Creatinine [Mass/Vol] 1.34 mg/dL Critically high 0.55-1.02 [facility] Comment on above: Performed By: #### C MP, LIPA, CMADM #### [facility] [address] [place] [address] Dr. Florencio Narayanan EGFR-AF BURMESE 47 mL/min/1.73m2 Critically low >=60 [facility] Comment on above: Performed By: #### C MP, LIPA, CMADM #### [facility] [address] [place] [address] Dr. Florencio Narayanan EGFR-NON AF BURMESE 39 mL/min/1.73m2 Critically low >=60 [facility] Comment on above: Performed By: #### C MP, LIPA, CMADM #### [facility] [address] [place] [address] Dr. Florencio Narayanan Globulin (S) [Mass/Vol] 4.3 g/dL Normal [facility] Comment on above: Performed By: #### C MP, LIPA, CMADM #### [facility] [address] [place] [address] Dr. Florencio Narayanan Glucose [Mass/Vol] 118 mg/dL Critically high 74-106 [facility] Comment on above: Performed By: #### C MP, LIPA, CMADM #### [facility] [address] [place] [address] Dr. Florencio Narayanan Potassium [Moles/Vol] 3.2 mmol/L Critically low 3.5-5.1 [facility] Comment on above: Performed By: #### C MP, LIPA, CMADM #### [facility] [address] [place] [address] Dr. Florencio Narayanan Protein [Mass/Vol] 6.8 g/dL Normal 6.4-8.2 [facility] Comment on above: Performed By: #### C LILIAN LOZANO CMADM #### [facility] [address] [place] [address] Dr. Florencio Narayanan Sodium [Moles/Vol] 134 mmol/L Critically low 136-145 [facility] Comment on above: Performed By: #### C LILIAN LOZANO CMADM #### [facility] [address] [place] [address] Dr. Florencio Narayanan Urea nitrogen [Mass/Vol] 29.0 mg/dL Critically high 7.0-18.0 [facility] Comment on above: Performed By: #### C LILIAN LOZANO CMADM #### [facility] [address] [place] [address] Dr. Florencio Narayanan Urea nitrogen/Creatinine [Mass ratio] 21.6 mg/mg Normal [facility] Comment on above: Performed By: #### C LILIAN LOZANO CMADM #### [facility] [address] [place] [address] Dr. Florencio Narayanan URINE MICROSCOPIC ONLYon BACTERIA SMALL Abnormal NONE SEEN [facility] Comment on above: Performed By: #### LIYAH LERO #### [facility] [address] [place] [address] Dr. Florencio Narayanan Bacteria identified Cx Nom (U) INDICATED Normal [facility] Comment on above: Performed By: #### LIYAH LERO #### [facility] [address] [place] [address] Dr. Florencio Narayanan CAST NONE SEEN Normal NONE SEEN [facility] Comment on above: Performed By: #### Malini PIZANO UMROSETTERO #### [facility] [address] [place] [address] Dr. Florencio Narayanan Crystals LM Nom (Urine sed) NONE SEEN Normal NONE SEEN [facility] Comment on above: Performed By: #### LIYAH LERO #### [facility] [address] [place] [address] Dr. Florencio Narayanan Epithelial cells LM Ql (Urine sed) FEW Abnormal NONE SEEN /RARE [facility] Comment on above: Performed By: #### E DANGELOR UMICRO #### [facility] [address] [address] [address] Florencio Narayanan MUCOUS NONE SEEN Normal NONE SEEN [facility] Comment on above: Performed By: #### E HARINDER, UMICRO #### [facility] [address] [place] [address] Dr. Florencio Narayanan RBC 2-5 Abnormal 0-2 [facility] Comment on above: Performed By: #### E HARINDER UMROSETTERO #### [facility] [address] [place] [address] Dr. Florencio Narayanan WBC 10-20 Abnormal NONE SEEN [facility] Comment on above: Performed By: #### E HARINDER, UMICRO #### [facility] [address] [place] [address] Dr. Florencio Narayanan XR CHEST 2 Von [...] JOAQUÍN ATKINS Date: 2022-06-09 12:24 Normal [facility] CULTURE URINEon 04-16-2022 CULTURE URINE [...] Trimethoprim/Sulfameth oxazole >=320 R F Normal [facility] Comment on above: Performed By: #### C #### [facility] [address] [address] [address] Florencio Narayanan MRI Hip w/o Righton [...] by Ramon Ambrocio on 09/11/2021 1545 Normal [facility] Sales Support Specialist Consult Reporton 03-14-[address] [facility] CONSULTATION TCBETTIE MONTOYA 3ET [id number] OBSV ANABEL WATKINS MD [id number] REFERRING PHYSICIAN: CONSULTING PHYSICIAN: Renetta Almanzar MD DATE OF CONSULTATION: 03/11/2020 REASON: A near syncopal event in a 74-year-old female, with a history of atrial fibrillation, previous cardiac ablation, who was the time of evaluation noted to have a positive test for COVID. HISTORY OF PRESENT ILLNESS: Mrs. Burns is a very pleasant, alert and oriented -[id number] female who was brought into the emergency [...] quarantine. Many thanks. RENETTA ALMANZAR MD BD/MedQ /[id number] Normal [facility] BASICMETAon 03-11-2020 GFR AA >60 Normal [facility] Comment on above: Result Comment: Afri can Tongan GFR Calc Medical judgement is necessary to [...] for drug dosing. Performed By: #### 1 49011, 366870, 856830 ####[facility] [address] [place] [address] Medical Director: Fahad Cast MD GFR/1.73 sq M predicted among non-blacks MDRD (S/P/Bld) [Vol rate/Area] 56 mL/min/1.73m? Normal [facility] Comment on above: Result Comment: Non [...] for drug dosing. Performed By: #### 1 59228, 071281, 506156 ####[facility] [address] [place], [place] [id number]) [phone] Director: Fahad Cast MD Osmolality [Osmolality] 291 mOsm/kg Normal 275-295 [facility] Comment on above: Performed By: #### 1 88338, 132922, 110425 ####[facility] [address] [place], [place] [id number]) [phone] Director: Fahad Cast MD Urea nitrogen/Creatinine [Mass ratio] 24.5 mg/mg Normal [facility] Comment on above: Performed By: #### 1 49765, 693273, 749484 ####[facility] [address] [place] [address] Medical Director: Fahad Cast MD Calcium [Mass/Vol] 9.3 mg/dL Normal 8.5-10.5 [facility] Comment on above: Performed By: #### 1 78129, 639102, 499479 ####[facility] [address]cat870[address] [place], [place] [id number]) [phone] Director: Fahad Cast MD Chloride [Moles/Vol] 108 mmol/L Normal 100-109 [facility] Comment on above: Performed By: #### 1 44501, 357351, 610797 ####[facility] [address] [place] [address] Medical Director: Fahad Cast MD CO2, venous 28.9 mmol/L Normal 21.0-32.0 [facility] Comment on above: Performed By: #### 1 31860, 147559, 975744 ####[facility] [address] [place], [place] [id number]) [phone] Director: Fahad Cast MD Creatinine [Mass/Vol] 1.0 mg/dL Normal 0.6-1.0 [facility] Comment on above: Performed By: #### 1 08566, 146151, 826153 ####[facility] [address] [place], [place] [id number]) [phone] Director: Fahad aCst MD Glucose [Mass/Vol] 98 mg/dL Normal 72-100 [facility] Comment on above: Result Comment: Sharon puncture should occur prior to sulfasalazine administration due to the potential for falsely depressed results. Venipuncture should occur prior to sulfapyridine administration due to the potential falsely elevated results. Baseline assay values before administration of sulfasalazine and sulfapyridine therapy would not be affected. Performed By: #### 1 25341, 326147, 196894 ####[facility] [address]mh[address] [place] [address] Medical Director: Fahad Cast MD Potassium [Moles/Vol] 4.2 mmol/L Normal 3.5-5.1 [facility] Comment on above: Performed By: #### 1 39641, 882202, 178264 ####[facility] [address] [place], [place] [id number]) [phone] Director: Fahad Cast MD Sodium [Moles/Vol] 144 mmol/L Normal 135-145 [facility] Comment on above: Performed By: #### 1 82922, 451132, 231809 ####[facility] [address] [place], [place] [id number]) [phone] Director: Fahad Cast MD Urea nitrogen [Mass/Vol] 24 mg/dL High 10-20 [facility] Comment on above: Performed By: #### 1 83839, 531794, 022868 ####[facility] [address] [place] [address] Medical Director: Fahad Cast MD CBCNDon 03-11-2020 Erythrocyte distribution width (RBC) [Ratio] 14.4 % Normal 11.5-14.5 [facility] Comment on above: Performed By: #### 1 30042, 375526, 712222 #### [facility] Services [address] [place] [address] Access Services Librarian: Fahad Cast MD Hematocrit (Bld) [Volume fraction] 33.9 % Low 36.0-46.0 [facility] Comment on above: Performed By: #### 1 19833, 690667, 283372 #### [facility] [address] [place], [place] [address] Access Services Librarian: Fahad Cast MD Hemoglobin (Bld) [Mass/Vol] 11.2 g/dL Low 12.0-16.0 [facility] Comment on above: Performed By: #### 1 07250, 057429, 408577 #### [facility] [address] [place] [address] Access Services Librarian: Fahad Cast MD MCH (RBC) [Entitic mass] 29.5 pg Normal 27.0-34.0 [facility] Comment on above: Performed By: #### 1 93909, 180530, 960689 #### [facility] [address] [place] [address] Access Services Librarian: Fahad Cast MD MCHC (RBC) [Mass/Vol] 33.0 g/dL Normal 32.0-37.0 [facility] Comment on above: Performed By: #### 1 85516, 644715, 185260 #### [facility] [address] [place] [address] Access Services Librarian: Fahad Cast MD MCV (RBC) [Entitic vol] 89.5 fL Normal 80.0-100.0 [facility] Comment on above: Performed By: #### 1 22051, 332661, 491285 #### [facility] [address] [place] [address] Access Services Librarian: Fahad Cast MD Platelet mean volume (Bld) [Entitic vol] 6.8 fL Low 7.4-10.4 [facility] Comment on above: Performed By: #### 1 44827, 904886, 560680 #### [facility] [address] [place] [address] Access Services Librarian: Fahad Cast MD Platelets (Bld) [#/Vol] 232 x1000 Normal 150-450 [facility] Comment on above: Performed By: #### 1 84793, 381110, 208047 #### [facility] [address] [place] [address] Access Services Librarian: Fahad Cast MD RBC (Bld) [#/Vol] 3.79 x10 Low 4.20-5.40 [facility] Comment on above: Result Comment: Note : RBC morphology is normal unless otherwise stated. Evaluation performed only if differential is requested. Performed By: #### 1 07715, 800326, 766792 #### [facility] [address] [place] [address] Access Services Librarian: Fahad Cast MD WBC (Bld) [#/Vol] 5.8 10*3/uL Normal [facility] Comment on above: Performed By: #### 1 54772, 382050, 539150 #### [facility] [address] [place] [address] Access Services Librarian: Fahad Cast MD WBC (Bld) [#/Vol] 5.8 x10 Normal 4.5-11.0 [facility] Comment on above: Performed By: #### 1 90282, 827384, 632131 #### [facility] [address] [place] [address] Access Services Librarian: Fahad Cast MD D Dimer HSon 03-11-2020 D Dimer HS 821 ng/mL FEU High <=499 [facility] Comment on above: Result Comment: Excl usion of PE and DVT The D Dimer HS assay is reported in ng/ml Fibrinogen Equivalent Units (FEU). Per truck driving instructor?s instructions for use, a value less than 500ng/ml (FEU) may help to exclude DVT and /or PE in outpatients when the assay is used with a clinical pretest probability assessment. D-Dimer used for DIC Screens Assay results should be used with other information, including the clinical context in forming a diagnosis. Performed By: #### C [id number] ####[facility] [address] [place] [address] Medical Director: Fahad Cast MD LDHon 03-11-2020 LDH 198 unit/L Normal 84-246 [facility] Comment on above: Performed By: #### 1 28216, 331840, 033706 #### [facility] [address] [place], [place] [phone] Access Services Librarian: Fahad Cast MD Progress Note-Physicianon Progress Note-Physician [...] medications. 6) DVT ppx: On Eliquis Normal [facility] Utilization Review Noteon Utilization Review Note ID Consult pending DISCHARGE WRITTEN AND PLANNED. Normal [facility] AUTO DIFFon 03-10-2020 Basophils (Bld) [#/Vol] 0.05 x1000 Normal 0.00-0.20 [facility] Comment on above: Performed By: #### 1 34585, 834504, [id number] ####[facility] [address] [place] [address] Medical Director: Fahad Cast MD Basos % 0.6 % Normal [facility] Comment on above: Performed By: #### 1 30859, 310755, 2675747 ####[facility] [address] [place] [address] Medical Director: Fahad Cast MD Eos Count 0.15 x1000 Normal 0.00-0.50 [facility] Comment on above: Performed By: #### 1 16053, 956531, 5206993 ####[facility] [address] [place] [address] Medical Director: Fahad Cast MD Eosinophils/100 WBC (Bld) 1.8 % Normal [facility] Comment on above: Performed By: #### 1 , 977622, [id number] ####[facility] [address]evc[address] [place] [address] Medical Director: Fahad Cast MD Lymphocytes (Bld) [#/Vol] 1.05 x1000 Low 1.20-4.80 [facility] Comment on above: Performed By: #### 1 75148, 526220, 6680856 ####[facility] [address] [place] [address] Medical Director: Fahad Cast MD Lymphocytes/100 WBC (Bld) 12.7 % Normal [facility] Comment on above: Performed By: #### 1 16244, 263488, 3876206 ####[facility] [address]ju[address] [place] [address] Medical Director: Fahad Cast MD [place] Count 0.70 x1000 Normal 0.10-1.00 [facility] Comment on above: Performed By: #### 1 93981, 809442, 6253840 ####[facility] [address]qb[address] [place] [address] Medical Director: Fahad Cast MD Monocytes/100 WBC (Bld) 8.4 % Normal [facility] Comment on above: Performed By: #### 1 43623, 940804, 1979747 ####[facility] [address] [place] [address] Medical Director: Fahad Cast MD Neutrophils (Bld) [#/Vol] 6.32 x1000 Normal 1.40-8.80 [facility] Comment on above: Performed By: #### 1 32173, 037041, 0181943 ####[facility] [address] [place] [address] Medical Director: Fahad Cast MD Neutrophils/100 WBC (Bld) 76.4 % Normal [facility] Comment on above: Performed By: #### 1 44890, 980746, 6876533 ####[facility] [address]xccsgl57[address] [place] [address] Medical Director: Fahad Cast MD COMPMETAon 03-10-2020 Albumin [Mass/Vol] 3.4 g/dL Normal 3.4-5.0 [facility] Comment on above: Performed By: #### 1 68689, 245743, 4684422 ####[facility] [address]xy[address] [place] [address] Medical Director: Fahad Cast MD Albumin/Globulin [Mass ratio] 0.8 {ratio} Normal [facility] Comment on above: Performed By: #### 1 86613, 603595, 9279104 ####[facility] [address]ob[address] [place] [address] Medical Director: Fahad Cast MD Alk Phos 71 unit/L Normal 45-117 [facility] Comment on above: Performed By: #### 1 62521, 850136, [id number] ####[facility] [facility] [address] [place] [address] Medical Director: Fahad Cast MD Bilirubin [Mass/Vol] 0.37 mg/dL Normal 0.20-1.00 [facility] Comment on above: Result Comment: Use of this assay is not recommended for patients undergoing treatment with eltrombopag due to the potential for falsely elevated results. Performed By: #### 1 48287, 503346, [id number] ####[facility] [address] [place] [address] Medical Director: Fahad Cast MD Calcium [Mass/Vol] 9.4 mg/dL Normal 8.5-10.5 [facility] Comment on above: Performed By: #### 1 24236, 526180, [id number] ####[facility] [address] [place] [address] Medical Director: Fahad Cast MD Chloride [Moles/Vol] 108 mmol/L Normal 100-109 [facility] Comment on above: Performed By: #### 1 49638, 413097, [id number] ####[facility] [address] [place] [address] Medical Director: Fahad Cast MD CO2, venous 28.2 mmol/L Normal 21.0-32.0 [facility] Comment on above: Performed By: #### 1 73128, 318175, [id number] ####[facility] [address] [place] [address] Medical Director: Fahad Cast MD Creatinine [Mass/Vol] 1.2 mg/dL High 0.6-1.0 [facility] Comment on above: Performed By: #### 1 08600, 945372, 8782872 ####[facility] [address] [place] [address] Medical Director: Fahad Cast MD GFR AA 53 Normal [facility] Comment on above: Result Comment: Afri can Tongan GFR Calc Medical judgement is necessary to [...] for drug dosing. Performed By: #### 1 52980, 964425, [id number] ####[facility] [address]af[address] [place] [address] Medical Director: Fahad Cast MD GFR/1.73 sq M predicted among non-blacks MDRD (S/P/Bld) [Vol rate/Area] 44 mL/min/1.73m? Normal [facility] Comment on above: Result Comment: Non [...] for drug dosing. Performed By: #### 1 68663, 211000, [id number] ####[facility] [address] [place] [address] Medical Director: Fahad Cast MD Globulin (S) [Mass/Vol] 4.0 g/dL Normal [facility] Comment on above: Performed By: #### 1 95794, 392379, 4099840 ####[facility] [address]wr[address]pn[address] [place] [address] Medical Director: Fahad Cast MD Glucose [Mass/Vol] 143 mg/dL High 72-100 [facility] Comment on above: Result Comment: Sharon puncture should occur prior to sulfasalazine administration due to the potential for falsely depressed results. Venipuncture should occur prior to sulfapyridine administration due to the potential falsely elevated results. Baseline assay values before administration of sulfasalazine and sulfapyridine therapy would not be affected. Performed By: #### 1 66456, 312874, [id number] ####[facility] [address] [place] [address] Medical Director: Fahad Cast MD GOT 18 unit/L Normal 15-37 [facility] Comment on above: Result Comment: Sharon puncture should occur prior to sulfasalazine and/or sulfapyridine administration due to the potential for falsely depressed results. Baseline assay values before administration of sulfasalazine and sulfapyridine therapy would not be affected. Performed By: #### 1 51479, 379879, [id number] ####[facility] [address] [place], [place] [id number]) [phone] Director: Fahad Cast MD GPT 19 unit/L Normal 13-56 [facility] Comment on above: Result Comment: Sharon puncture should occur prior to sulfasalazine and/or sulfapyridine administration due to the potential for falsely depressed results. Baseline assay values before administration of sulfasalazine and sulfapyridine therapy would not be affected. Performed By: #### 1 51430, 233422, 4435673 ####[facility] [address] [place], [place] [id number]) [phone] Director: Fahad Cast MD Osmolality [Osmolality] 293 mOsm/kg Normal 275-295 [facility] Comment on above: Performed By: #### 1 00108, 675844, 5347986 ####[facility] [address] [place] [address] Medical Director: Fahad Cast MD Potassium [Moles/Vol] 4.0 mmol/L Normal 3.5-5.1 [facility] Comment on above: Performed By: #### 1 74346, 143887, 2848658 ####[facility] [address] [place] [address] Medical Director: Fahad Cast MD Protein [Mass/Vol] 7.4 g/dL Normal 6.0-8.5 [facility] Comment on above: Performed By: #### 1 94777, 353102, 4040583 ####[facility] [address]wt[address] [place] [address] Medical Director: Fahad Cast MD Sodium [Moles/Vol] 142 mmol/L Normal 135-145 [facility] Comment on above: Performed By: #### 1 76101, 362011, 4966521 ####[facility] [address] [place], [place] [id number]) [phone] Director: Fahad Cast MD Urea nitrogen [Mass/Vol] 32 mg/dL High 10-20 [facility] Comment on above: Performed By: #### 1 92100, 241614, [id number] ####[facility] [address] [place] [address] Medical Director: Fahad Cast MD Urea nitrogen/Creatinine [Mass ratio] 26.7 mg/mg Normal [facility] Comment on above: Performed By: #### 1 39798, 202138, 0664339 ####[facility] [address]wd[address] [place] [address] Medical Director: Fahad Cast MD COVID-19 by PCR SWEDon 03-10 COVID[place]19 [place] [facility] [place] [facility] Comment on above: Result Comment: CALL DEANNA SEPULVEDA PRATIK 03/10/2020 18:23:22 EST BY SHF; RBR Performed By: #### C [id number] ####[facility] [address] [place] [address] Medical Director: Fahad Cast MD CRP QUANTon 03-10-2020 C-Reactive Protein, Quantitative 0.8 mg/dL High 0.0-0.3 [facility] Comment on above: Performed By: #### 1 70757, [id number], [id number], [id number] #### [facility] Services [address] [place] [address] Access Services Librarian: Fahad Cast MD CT ABD PELVIS W [...] by: Oni Liu MD 03/10/2020 3:50 PM MINING TEACHER Technologist: LIEN BLANCA Dictated By: ONI LIU MD Signed By: ONI LIU MD Signed Out: 03/10/20 16:50:49 Normal [facility] D Dimer HSon 03-10-2020 D Dimer HS 264 ng/mL FEU Normal <=499 [facility] Comment on above: Result Comment: Excl usion of PE and DVT The D Dimer HS assay is reported in ng/ml Fibrinogen Equivalent Units (FEU). Per truck driving instructor?s instructions for use, a value less than 500ng/ml (FEU) may help to exclude DVT and /or PE in outpatients when the assay is used with a clinical pretest probability assessment. D-Dimer used for DIC Screens Assay results should be used with other information, including the clinical context in forming a diagnosis. Performed By: #### 1 18163, [id number], [id number], [id number] #### [facility] Services [address] [place] [address] Access Services Librarian: aFhad Cast MD ED Physician Reporton 2019 ED [...] Line Saline Flush: 3 mL, IV Push, [id number] Documented Medications Documented Eliquis 5 mg oral [...] Interp, Sinus rhythm with first-degree AV block, AZ interval 256, QT/QTc/433, incomplete right bundle branch [...] /100WBC NA Lymph % 12.7 % NA [place] % 8.4 % NA Neutrophil % 76.4 % NA Eosin % 1.8 % NA Basos % 0.6 % NA Lymph Count 1.05 x1000 LOW [place] Count 0.70 x1000 NORMAL Neutrophil Count (ANC) [...] by: Monae Hernandez MD 03/10/2020 1:58 PM MINING TEACHER Signed By: MONAE HERNANDEZ MD CT ABD [...] by: Oni Liu MD 03/10/2020 3:50 PM MINING TEACHER Signed By: ONI LIU MD . Notes: [...] Course: improving. Impression and Plan Diagnosis Syncope ([id number] R55, Working, Medical) Plan Condition: Stable. Disposition: [...] accurately records my words and actions.. Normal [facility] ED Pre-Arrival Formon 2019 ED Pre-Arrival Form Pre-Arrival Summary Name: STR, Current Date: 03/10/2020 13:52:19 EST Gender: Date of : Age: Pre-Arrival Type: EMS ETA: 03/10/2020 14:15:00 EST Primary Care Physician: Presenting Problem: Pre-Arrival User: Neil Vázquez RN Referring Source: Location: 1 [facility] Emergency Department [facility] [place] [address] Notes: Vital Signs: Doctor Call Back: DNR Status: Miscellaneous Issues: Normal [facility] ED Progress Noteon 0 ED Progress Note report not put in by previous rn pt here for syncopal episode after diarrhea episode pt has hx of afib. pt covid+ report called to neil silva will come get pt Normal [facility] FERRITINon 03-10-2020 Ferritin [Mass/Vol] 32 ng/mL Normal 8-252 [facility] Comment on above: Performed By: #### 1 47071, [id number], [id number], [id number] #### [facility] Services [address] [place] [address] Access Services Librarian: Fahad Cast MD HEMOon 03-10-2020 DIFF? No Normal [facility] Comment on above: Performed By: #### 1 96384, 732233, 2048828 ####[facility] [address] [place] [address] Medical Director: Fahad Cast MD Erythrocyte distribution width (RBC) [Ratio] 14.5 % Normal 11.5-14.5 [facility] Comment on above: Performed By: #### 1 14510, 185620, 7606147 ####[facility] [address]cmks[address] [place] [address] Medical Director: Fahad Cast MD Hematocrit (Bld) [Volume fraction] 35.8 % Low 36.0-46.0 [facility] Comment on above: Performed By: #### 1 98156, 333621, 1613284 ####[facility] [address] [place] [address] Medical Director: Fahad Cast MD Hemoglobin (Bld) [Mass/Vol] 11.7 g/dL Low 12.0-16.0 [facility] Comment on above: Performed By: #### 1 24521, 026999, 7069856 ####[facility] [address] [place] [address] Medical Director: Fahad Cast MD MCH (RBC) [Entitic mass] 29.4 pg Normal 27.0-34.0 [facility] Comment on above: Performed By: #### 1 96478, 657904, 1303555 ####[facility] [address] [place] [address] Medical Director: Fahad Cast MD MCHC (RBC) [Mass/Vol] 32.7 g/dL Normal 32.0-37.0 [facility] Comment on above: Performed By: #### 1 44877, 517961, 8299331 ####[facility] [address]apt[address] [place] [address] Medical Director: Fahad Cast MD MCV (RBC) [Entitic vol] 89.8 fL Normal 80.0-100.0 [facility] Comment on above: Performed By: #### 1 59434, 124519, 9291281 ####[facility] [address]mw[address] [place] [address] Medical Director: Fahad Cast MD Nucleated RBC (Bld) [#/Vol] 0 /100WBC Normal [facility] Comment on above: Performed By: #### 1 53125, 338343, 9781625 ####[facility] [address]udix[address] [place] [address] Medical Director: Fahad Cast MD Platelet mean volume (Bld) [Entitic vol] 6.7 fL Low 7.4-10.4 [facility] Comment on above: Performed By: #### 1 51549, 391355, 5966208 ####[facility] [address]kh[address] [place] [address] Medical Director: Fahad Cast MD Platelets (Bld) [#/Vol] 252 x1000 Normal 150-450 [facility] Comment on above: Performed By: #### 1 27465, 892895, 8978748 ####[facility] [address] [place] [address] Medical Director: Fahad Cast MD RBC (Bld) [#/Vol] 3.99 x10 Low 4.20-5.40 [facility] Comment on above: Result Comment: Note : RBC morphology is normal unless otherwise stated. Evaluation performed only if differential is requested. Performed By: #### 1 77152, 189057, 4447426 ####[facility] [address]xs[address] [place] [address] Medical Director: Fahad Cast MD WBC (Bld) [#/Vol] 8.3 10*3/uL Normal [facility] Comment on above: Performed By: #### 1 38037, 163327, 0971399 ####[facility] [address] [place] [address] [facility]: Fahad Cast MD WBC (Bld) [#/Vol] 8.3 x10 Normal 4.5-11.0 [facility] Comment on above: Performed By: #### 1 36133, 351074, 3340818 ####[facility] [address] [place] [address] Medical Director: Fahad Cast MD History and [...] ppx: On Eliquis OT MESA on Normal [facility] LACTATEon 03-10-2020 Lactate [Moles/Vol] 1.8 mmol/L Normal 0.4-2.0 [facility] Comment on above: Performed By: #### 1 13580 #### [facility] Services [address] [place] [address] Access Services Librarian: Fahad Cast MD LIPon 03-10-2020 Lipase [Catalytic activity/Vol] 135 unit/L Normal 73-393 [facility] Comment on above: Performed By: #### 1 11813, 642254, 945820 ####[facility] [address] [place] [address] Medical Director: Fahad Cast MD MG LEVELon 03-10-2020 Magnesium [Mass/Vol] 1.9 mg/dL Normal 1.6-2.6 [facility] Comment on above: Performed By: #### 1 43616, 873610, 007016 ####[facility] [address] [place] [address] Medical Director: Fahad Cast MD PCTon 03-10-2020 Procalcitonin <0.05 Normal [facility] Comment on above: Result Comment: INTE [...] or septic shock. Performed By: #### 1 31123, [id number], [id number], [id number] #### [facility] Services [address] [place] [address] Access Services Librarian: Fahad Cast MD TROPONINon 03-10-2020 Troponin I.cardiac [Mass/Vol] ng/mL Normal 0.000-0.099 [facility] Comment on above: Result Comment: This test is a quantitative determination of cardiac troponin I. High levels of serum biotin may interfere with this test. Performed By: #### 1 94478, 224209, 386033 ####[facility] [address] [place] [address] Medical Director: Fahad Cast MD [...] by: Monae Hernandez MD 03/10/2020 1:58 PM MINING TEACHER Technologist: THANG JAMES Dictated By: MONAE HERNANDEZ MD Signed By: MONAE HERNANDEZ MD Signed Out: 03/10/20 14:58:26 Normal [facility] Vital Signs Date Time Vital Sign Value Performing Clinician Facility 07-14-2024 13:15-0400 Body height 165.1 cm Paula Barrera APRN-COLOR SEPARATION PHOTOGRAPHER Work Phone: [facility] 07-14-2024 13:15-0400 Body mass index (BMI) [Ratio] 27.96 kg/m2 Paula Barrera APRN-COLOR SEPARATION PHOTOGRAPHER Work Phone: [facility] 07-14-2024 13:15-0400 Body weight 76.2 kg Paula Barrera APRN-COLOR SEPARATION PHOTOGRAPHER Work Phone: [facility] 06-22-2024 12:54-0500 Blood Pressure Location [facility] E [facility] 06-22-2024 12:54-0500 Diastolic blood pressure 55 mm[Hg] Maria E Os[facility] 06-22-2024 12:54-0500 Heart rate 56 /min Maria E Osman [facility] 06-22-2024 12:54-0500 Respiratory rate 18 /min Maria E Osman [facility] 06-22-2024 12:54-0500 Systolic blood pressure 125 mm[Hg] Maria E Osman [facility] 05-09-2024 09:17-0500 Body height 165.[address] [facility] 05-09-2024 09:17-0500 Body mass index (BMI) [Ratio] 29.1 kg/m2 [facility] 05-09-2024 09:17-0500 Body weight 79.[address] [facility] 05-09-2024 09:17-0500 Diastolic blood pressure 70 mm[Hg] [facility] 05-09-2024 09:17-0500 Heart rate 58 /min [facility] 05-09-2024 09:17-0500 Systolic blood pressure 116 mm[Hg] [facility] 04-30-2024 10:29-0500 Body height 165.[address] [facility] 04-30-2024 10:29-0500 Body mass index (BMI) [Ratio] 29.1 kg/m2 [facility] 04-30-2024 10:29-0500 Body temperature 99.2 [degF] [facility] 04-30-2024 10:29-0500 Body weight 79.[address] [facility] 04-30-2024 10:29-0500 Diastolic blood pressure 75 mm[Hg] [facility] 04-30-2024 10:29-0500 Heart rate 58 /min [facility] 04-30-2024 10:29-0500 Respiratory rate 16 /min [facility] 04-30-2024 10:29-0500 SaO2% (BldA) [Mass fraction] 94 % [facility] 04-30-2024 10:29-0500 Systolic blood pressure 146 mm[Hg] [facility] 02-01-2024 11:13-0400 Body height 165.[address] [facility] 02-01-2024 11:13-0400 Body mass index (BMI) [Ratio] 28.3 kg/m2 [facility] 02-01-2024 11:13-0400 Body weight 77.[address] [facility] 02-01-2024 11:13-0400 Diastolic blood pressure 72 mm[Hg] [facility] 02-01-2024 11:13-0400 Heart rate 60 /min [facility] 02-01-2024 11:13-0400 Systolic blood pressure 134 mm[Hg] [facility] 11-26-2023 14:08-0400 Body height 165.1 cm Miko Ohara MD Work Phone: [facility] 11-26-2023 14:08-0400 Body mass index (BMI) [Ratio] 27.96 kg/m2 Miko Ohara MD Work Phone: [facility] 11-26-2023 14:08-0400 Body temperature 97 [degF] Miko Ohara MD Work Phone: [facility] 11-26-2023 14:08-0400 Body weight 76.2 kg Miko Ohara MD Work Phone: [facility] 11-26-2023 09:56-0400 Body height 165.1 cm Mainor Post MD Work Phone: [facility] 11-26-2023 09:56-0400 Body mass index (BMI) [Ratio] 28.12 kg/m2 Mainor Post MD Work Phone: [facility] 11-26-2023 09:56-0400 Body weight 76.66 kg Mainor Post MD Work Phone: [facility] 11-26-2023 09:56-0400 Diastolic blood pressure 76 mm[Hg] Mainor Post MD Work Phone: [facility] 11-26-2023 09:56-0400 Heart rate 56 /min Mainor Post MD Work Phone: [facility] 11-26-2023 09:56-0400 Systolic blood pressure 124 mm[Hg] Mainor Post MD Work Phone: [facility] 10-28-2023 08:41-0400 Body height 165.[address] [facility] 10-28-2023 08:41-0400 Body mass index (BMI) [Ratio] 27.9 kg/m2 [facility] 10-28-2023 08:41-0400 Body weight 76.[address] [facility] 10-28-2023 08:41-0400 Diastolic blood pressure 68 mm[Hg] [facility] 10-28-2023 08:41-0400 Heart rate 58 /min [facility] 10-28-2023 08:41-0400 Systolic blood pressure 106 mm[Hg] [facility] 08-20-2023 14:38-0400 Body height 165.1 cm Divine Cliftonnery Work Phone: [facility] 08-20-2023 14:38-0400 Body mass index (BMI) [Ratio] 27.96 kg/m2 Divine Cliftoncwell Work Phone: [facility] 08-20-2023 14:38-0400 Body weight 76.2 kg Divine Brocwell Work Phone: [facility] 07-23-2023 14:45-0400 Body height 165.1 cm Divine Brocwell Work Phone: [facility] 07-23-2023 14:45-0400 Body mass index (BMI) [Ratio] 27.96 kg/m2 Divine Brocwell Work Phone: [facility] 07-23-2023 14:45-0400 Body weight 76.2 kg Divine Dougherty Work Phone: [employer] [facility] 2023 15:34-0500 Body temperature 97.9 [degF] Miko Ohara MD Work Phone: [employer] [facility] 2023 15:34-0500 Diastolic blood pressure 53 mm[Hg] Miok Ohara MD Work Phone: [employer] [facility] 2023 15:34-0500 Heart rate 80 /min Miko Ohara MD Work Phone: [employer] [facility] 2023 15:34-0500 Respiratory rate 16 /min Miko Ohara MD Work Phone: [employer] [facility] 2023 15:34-0500 SaO2% (BldA) [Mass fraction] 98 % Miko Ohara MD Work Phone: [employer] [facility] 2023 15:34-0500 Systolic blood pressure 110 mm[Hg] Miko Ohara MD Work Phone: [employer] [facility] 07-07-2023 16:39-0500 Body height 165.1 cm Miko Ohara MD Work Phone: [employer] [facility] 07-07-2023 16:39-0500 Body mass index (BMI) [Ratio] 28.02 kg/m2 Miko Ohara MD Work Phone: [employer] [facility] 07-07-2023 16:39-0500 Body weight 76.39 kg Miko Ohara MD Work Phone: [employer] [facility] 06-18-2023 14:31-0500 Body height 165.1 cm Miko Ohara MD Work Phone: [employer] [facility] 06-18-2023 14:31-0500 Body mass index (BMI) [Ratio] 28.12 kg/m2 Miko Ohara MD Work Phone: [employer] [facility] 06-18-2023 14:31-0500 Body weight 76.66 kg Miko Ohara MD Work Phone: [employer] [facility] 06-02-2023 11:19-0500 Body height 165.1 cm Donna Diaz MD Work Phone: [facility] [employer] 06-02-2023 11:19-0500 Body mass index (BMI) [Ratio] 28.12 kg/m2 Donna Diaz MD Work Phone: [facility] [employer] 06-02-2023 11:19-0500 Body weight 76.66 kg Donna Diaz MD Work Phone: [facility] [employer] 06-02-2023 11:19-0500 Diastolic blood pressure 68 mm[Hg] Donna Diaz MD Work Phone: [facility] [employer] 06-02-2023 11:19-0500 Heart rate 62 /min Donna Diaz MD Work Phone: [facility] [employer] 06-02-2023 11:19-0500 SaO2% (BldA) [Mass fraction] 99 % Donna Diaz MD Work Phone: [facility] [employer] 06-02-2023 11:19-0500 Systolic blood pressure 106 mm[Hg] Donna Diaz MD Work Phone: [facility] [employer] 05-14-2023 09:38-0500 Body height 165.1 cm Miko Ohara MD Work Phone: [employer] 05-14-2023 09:38-0500 Body mass index (BMI) [Ratio] 29.12 kg/m2 Miko Ohara MD Work Phone: [employer] [facility] 05-14-2023 09:38-0500 Body temperature 98.2 [degF] Miko Ohara MD Work Phone: [employer] 05-14-2023 09:38-0500 Body weight 79.38 kg Miko Ohara MD Work Phone: [employer] 10-30-2022 14:45-0400 Body height 165.1 cm Elliot Starks Other [employer] Other 10-30-2022 14:45-0400 Body mass index (BMI) [Ratio] 28.4 kg/m2 Elliot Starks Other [employer] Other 10-30-2022 14:45-0400 Body weight 77.43 kg Elliot Starks Other [employer] Other 10-30-2022 14:45-0400 Diastolic blood pressure 66 mm[Hg] Elliot Starks Other [employer] Other 10-30-2022 14:45-0400 Systolic blood pressure 123 mm[Hg] Elliot Starks Other [employer] Other 06-04-2022 11:30-0500 Body height 165.1 cm Elliot Starks Other [employer] Other 06-04-2022 11:30-0500 Body mass index (BMI) [Ratio] 28.29 kg/m2 Elliot Starks Other [employer] Other 06-04-2022 11:30-0500 Body weight 77.11 kg Elliot Starks Other [employer] Other 06-04-2022 11:30-0500 Diastolic blood pressure 64 mm[Hg] Elliot Starks Other [employer] Other 06-04-2022 11:30-0500 SaO2% (BldA) [Mass fraction] 99 % Elliot Starks Other [employer] Other 06-04-2022 11:30-0500 Systolic blood pressure 104 mm[Hg] Elliot Starks Other [employer] Other Encounters Encounter Date Encounter Type Care Provider Facility Start: 08-07-2024 End: 08-10-2024 Refill Vinicio Causey PA-C Work Phone: [facility] Comment on above: Med Refill Start: 08-03-2024 End: 08-04-2024 Refill Rosnagela Montague DRAWER HARDWARE WORKER-COLOR SEPARATION PHOTOGRAPHER Work Phone: [facility] Comment on above: Med Refill Start: 07-27-2024 End: 07-28-2024 Refill Sander Pollack RN [facility] Comment on above: Med Refill Start: 07-20-2024 End: 07-27-2024 Refill Miko Vasquez DRAWER HARDWARE WORKER-COLOR SEPARATION PHOTOGRAPHER Work Phone: [facility] Comment on above: Med Refill Start: 07-20-2024 ambulatory Alfreda Miller Facility:[facility] Start: 07-14-2024 End: 07-14-2024 Postop follow up visit related to original px Paula Brarera APRN-COLOR SEPARATION PHOTOGRAPHER Work Phone: [facility] [facility] Comment on above: Hx of total hip arth roplasty, right (Primary Dx) Start: 07-14-2024 End: 07-14-2024 Subsequent hospital visit by physician Paula Barrrea APRN-COLOR SEPARATION PHOTOGRAPHER Work Phone: [facility] Start: 07-14-2024 ambulatory [facility] Start: 06-30-2024 End: 07-06-2024 Refill Michael Castanon DRAWER HARDWARE WORKER-COLOR SEPARATION PHOTOGRAPHER Work Phone: [facility] Comment on above: Med Refill Start: 06-22-2024 End: 07-26-2024 Pre-admission assessment Alfreda Miller [facility] Start: 06-22-2024 End: 06-22-2024 ambulatory Maria E Osman [place] [place]: 06-22-2024 End: 06-22-2024 Lab Drop off Maria E Jacqui [facility] Start: 06-22-2024 End: 06-22-2024 ambulatory Maria E Osman Facility:[facility] Start: 06-22-2024 End: 06-22-2024 Patient encounter procedure Maria E Osman [facility] Start: 06-21-2024 End: 06-21-2024 ambulatory [facility] Work Phone: Start: 06-21-2024 End: 06-21-2024 Patient encounter procedure [facility] Work Phone: Start: 05-11-2024 Non-patient / Non-visit [facility] Work Phone: Start: 05-09-2024 End: 05-09-2024 ambulatory [facility] Work Phone: Start: 05-09-2024 End: 05-09-2024 Patient encounter procedure [facility] Work Phone: Start: 04-30-2024 End: 04-30-2024 Patient encounter procedure [facility] Work Phone: Start: 04-04-2024 End: 04-04-2024 ambulatory Daisy Liz MD Facility[facility] Start: 02-01-2024 End: 02-01-2024 ambulatory [facility] Work Phone: Start: 02-01-2024 End: 02-01-2024 Patient encounter procedure [facility] Work Phone: Start: 01-02-2024 End: 01-05-2024 Refill Rosangela Montague DRAWER HARDWARE WORKER-COLOR SEPARATION PHOTOGRAPHER Work Phone: [facility] Comment on above: Med Refill Start: 12-14-2023 End: 12-14-2023 ambulatory Daisy Liz MD Facility: [facility] Start: 11-26-2023 End: 11-26-2023 Subsequent hospital visit by physician Miko Ohara MD Work Phone: [facility] Start: 11-26-2023 ambulatory MIKO OHARA [facility] Start: 11-26-2023 End: 11-26-2023 Office outpatient visit 15 minutes Miko Ohara MD Work Phone: [facility] Comment on above: Hx of total hip arth roplasty, right (Primary Dx) Paroxysmal atrial fi brillation (CMS-HCC) (Primary Dx); Unstable angina (CMS-HCC); SOB (shortness of breath) Start: 11-25-2023 End: 11-25-2023 Telephone encounter [facility] Start: 10-28-2023 End: 10-28-2023 ambulatory [facility] Work Phone: Start: 10-28-2023 End: 10-28-2023 Patient encounter procedure [facility] Work Phone: Start: 10-19-2023 End: 10-26-2023 Refill Mike Craft MD Work Phone: [facility] Comment on above: Med Refill Start: 09-30-2023 End: 10-01-2023 ambulatory ANDREW CHOI [facility] Start: 09-17-2023 Telephone encounter Matt Duron Hematology/Oncology Comment on above: Yearly Exam With Shane rodriguez Start: 08-20-2023 End: 08-20-2023 Subsequent hospital visit by physician Divine Dougherty Work Phone: [facility] Start: 08-20-2023 ambulatory DIVINE DOUGHERTY [facility] Start: 08-20-2023 End: 08-20-2023 Postop follow up visit related to original px Divine Dougherty Work Phone: [facility] Comment on above: Right hip pain (Prim hayden Dx) Start: 08-20-2023 ambulatory ELLIOT STARKS [facility] Start: 08-12-2023 End: 08-12-2023 ambulatory MIKO Malini VASQUEZ [facility] Start: 08-10-2023 End: 08-13-2023 Refill Divine Kaur DRAWER HARDWARE WORKER-COLOR SEPARATION PHOTOGRAPHER Work Phone: [facility] Comment on above: Med Refill Start: 07-23-2023 End: 07-23-2023 Postop follow up visit related to original px Divine Dougherty Work Phone: [facility] Comment on above: Tear of gluteus mini mus tendon, right, initial encounter (Primary Dx) Start: 07-23-2023 End: 07-23-2023 Subsequent hospital visit by physician Divine Dougherty Work Phone: [facility] Start: 07-23-2023 ambulatory DIVINEELI DOUGHERTY [facility] Start: 07-17-2023 Refill Mike galloway MD Work Phone: [facility] Comment on above: Med Refill Start: 07-15-2023 End: 07-16-2023 Emergency department patient visit EILEEN BLANTON [facility] Start: 07-15-2023 Telephone encounter Ashia Lema [facility] Start: 07-15-2023 End: 07-15-2023 Emergency department patient visit ELLIOT STARKS [facility] Start: 07-07-2023 End: 2023 Evaluation and management of inpatient Miko Ohara MD Work Phone: [facility] Comment on above: Status post revision of total hip Start: 07-07-2023 End: 2023 Patient encounter status Miko Ohara MD Work Phone: [facility] Start: 07-01-2023 Patient encounter status [facility] Start: 06-19-2023 Telephone encounter Jacqueline Escobar [facility] Comment on above: Pre op clearance Start: 06-18-2023 End: 06-18-2023 Office outpatient visit 40 minutes Miko Ohara MD Work Phone: [facility] Comment on above: Right hip pain (Prim hayden Dx) Start: 06-08-2023 End: 06-08-2023 ambulatory Daisy Liz MD Facility:[facility] Start: 06-02-2023 End: 06-02-2023 Office outpatient visit 25 minutes Donna Diaz MD Work Phone: [facility] Comment on above: Paroxysmal atrial fi brillation (CMS-HCC) (Primary Dx); Primary hypertension; Chronic coronary artery disease Start: 06-02-2023 End: 06-02-2023 ambulatory DONNA DIAZ [facility] Start: 05-25-2023 End: 05-25-2023 ambulatory Daisy Liz MD Facility:[facility] Start: 05-18-2023 End: 05-18-2023 ambulatory Daisy Liz MD Facility[facility] Start: 05-14-2023 End: 05-14-2023 Office outpatient new 30 minutes Miko Ohara MD Work Phone: [facility] Comment on above: Pain in prosthetic j oint, initial encounter (Primary Dx); Primary osteoarthritis of right hip Start: 05-14-2023 End: 05-14-2023 Subsequent hospital visit by physician Miko Ohara MD Work Phone: [facility] Start: 03-30-2023 (Televisit) Televisit Elliot Starks [facility] Start: 03-30-2023 End: 03-30-2023 ambulatory Elliot Starks Other [employer] Other Start: 02-11-2023 End: 02-11-2023 Patient encounter procedure Alfreda Miller [facility] Start: 12-29-2022 Preoperative state Donna franks MD Work Phone: [facility] Start: 11-17-2022 End: 11-17-2022 ambulatory Elliot Stakrs Other [employer] Other Start: 11-17-2022 Telephone encounter Elliot Starks [facility] Start: 10-30-2022 End: 10-30-2022 ambulatory Elliot Starks Other [employer] Other Start: 10-30-2022 Office outpatient vi sit 15 minutes Elliot Starks [facility] Start: 10-29-2022 End: 10-29-2022 ambulatory Elliot Starks Other [employer] Other Start: 10-29-2022 Telephone encounter Elliot Starks [facility] Start: 10-27-2022 Nursing evaluation o f patient and report Elliot Starks [facility] Start: 10-27-2022 End: 10-27-2022 ambulatory Elliot Starks [employer] Other Start: 10-27-2022 End: 10-27-2022 Departed Referred MD Elliot Starks Work Phone: [facility] Work Phone: Start: 09-11-2022 Telephone encounter Matt Duron Hematology/Oncology Comment on above: Orders Start: 08-11-2022 End: 08-11-2022 ambulatory Elliot Starks Other [employer] Other Start: 08-11-2022 Nursing evaluation o f patient and report Elliot Starks [facility] Start: 07-17-2022 (Televisit) Televisit Elliot Dela Cruz [facility] Start: 07-17-2022 End: 07-17-2022 ambulatory Elliot Starks Other [employer] Other Start: 06-23-2022 End: 06-23-2022 ambulatory Elliot Starks Other [employer] Other Start: 06-23-2022 Nursing evaluation o f patient and report Elliot Starks [facility] Start: 06-09-2022 End: 06-09-[address] ELLIOT STARKS Facility:[facility] Start: 06-06-2022 End: 06-06-2022 ambulatory Elliot Starks Other [employer] Other Start: 06-06-2022 Telephone encounter Elliot Starks [facility] Start: 06-04-2022 End: 06-04-2022 ambulatory Elliot Starks Other [employer] Other Start: 06-04-2022 Office outpatient vi sit 25 minutes Elliot Starks [facility] Start: 05-21-2022 End: 05-21-2022 ambulatory Elliot Starks Other [employer] Other Start: 05-21-2022 Telephone encounter Elliot Starks [facility] Start: 04-26-2022 End: 04-26-[address] ELLIOT STARKS Facility:[facility] Start: 04-14-2022 End: 04-14-[address] ELLIOT STARKS Facility:[facility] Start: 12-18-2021 End: 12-18-2021 ambulatory Melchor Denver Verbena Facility:[facility] Start: 10-03-2021 Telephone encounter Andrew black MD Work Phone: Hematology/Oncology Comment on above: Lab Orders Start: 09-26-2021 Telephone encounter Mikaela jimenez RN Work Phone: Hematology/Oncology Comment on above: Radiology Mammogram Start: 12-02-2016 End: 12-03-2016 Ambulatory DEFAULT PHYSICIAN Facility[facility] Procedures Date Procedure Procedure Detail Performing Clinician Start: 2023 Basic metabolic pane l calcium total Chance Mahoney MD Work Phone: Start: 2023 Complete blood count with white cell differential, automated Paula Barrera APRN-COLOR SEPARATION PHOTOGRAPHER Work Phone: Start: 07-07-2023 Cultyp nuc acid amp prb cult/isolate ea orgsandram Chance Mahoney MD Work Phone: Start: 07-07-2023 Radiologic examinati on pelvis 1/2 views Paula Barrera DRAWER HARDWARE WORKER-COLOR SEPARATION PHOTOGRAPHER Work Phone: Start: 07-07-2023 Cell count miscellan [...] Alfreda Moraese Insertion of hip prosthesis Alfreda Moraese Lumpectomy of left breast Ka gonsalo Miller Rotator cuff includi ng muscles and tendons (body structure) Alfreda Miller Screening for malign ant neoplasm of breast Elliot Starks Other Total abdominal hysterectomy Alfreda Miller Plan of Treatment Date Care Activity Detail Author Start: 01-02-2025 Influenza vaccination Influenza Vacc ine [facility] Start: 11-25-2024 Adult BMI Screening Adult BMI Screen ing [facility] Start: 11-25-2024 Tobacco Screening Tobacco Screening [facility] Start: 09-29-2024 Adult BMI Screening Adult BMI Screen ing [facility] Start: 09-29-2024 Screening for malign ant neoplasm of breast MAMMOGRAM SCREENING [facility] Start: 08-11-2024 Adult BMI Screening Adult BMI Screen ing [facility] Start: 08-11-2024 End: 08-10-2025 CBC panel - Blood by Automated count CBC Lab Routine Paroxysmal atrial fibrillation ([facility]CC) Benign hypertension Expected: 08/11/2024 (Approximate), Expires: 08/10/2025 [facility] Comment on above: Expected: 08/11/2024 (Approximate), Expires: 08/10/2025 Start: 08-11-2024 End: 08-10-2025 Comprehensive metabolic 2000 panel - Serum or Plasma CMP Lab Routine Paroxysmal atrial fibrillation (CMS-HCC) Benign hypertension Expected: 08/11/2024 (Approximate), Expires: 08/10/2025 [employer] Phone: Comment on above: Expected: 08/11/2024 (Approximate), Expires: 08/10/2025 Start: 08-11-2024 End: 08-10-2025 Magnesium [Mass/volume] in Serum or Plasma Magnesium Lab Routine Paroxysmal atrial fibrillation (CMS-HCC) Benign hypertension Expected: 08/11/2024 (Approximate), Expires: 08/10/2025 [facility] Comment on above: Expected: 08/11/2024 (Approximate), Expires: 08/10/2025 Start: 08-11-2024 Tobacco Screening Tobacco Screening [facility] Start: 07-14-2024 Tobacco Screening Tobacco Screening [facility] Start: 07-14-2024 End: 07-14-2024 Patient encounter procedure 07/14/2024 11:20 AM EDT Office Visit [facility] [address] [place] [address] Miko Ohara MD [address] [place] [address] [facility] Start: 07-07-2024 Potassium [Moles/vol ume] in Serum or Plasma POTASSIUM [facility] Start: 06-02-2024 Adult BMI Screening Adult BMI Screen ing [facility] Start: 06-02-2024 Tobacco Screening Tobacco Screening [facility] Start: 02-16-2024 End: 02-16-2024 Patient encounter procedure 02/16/2024 11:00 AM EDT Office Visit [facility] [address] [facility] [address] [place] [address] Sheridan Reyes MD [address] [place] [address] [facility] Start: 01-03-2024 COVID-19 Vaccine ( season) COVID-19 Vaccine ( season) [facility] Start: 01-03-2024 COVID-19 Vaccine ( season) COVID-19 Vaccine ( season) [facility] Start: 01-03-2024 Influenza vaccination C [facility] Start: 11-26-2023 End: 11-26-2023 Patient encounter procedure [facility] Start: 10-09-2023 DIABETES SCREEN DIABETES SCREEN [facility] Start: 10-09-2023 Diabetes Screening Diabetes Screenin g [facility] Start: 08-20-2023 End: 08-20-2023 Patient encounter procedure 08/20/2023 2:30 PM EDT Office Visit [facility] [address] [place] [id number] Divine Dougherty [address] [place] [id number] [facility] Start: 08-12-2023 End: 08-12-2023 Patient encounter procedure 08/12/2023 8:00 AM EDT Office Visit [facility] [address] [place] [phone] Miko Vasquez, DRAWER HARDWARE WORKER-COLOR SEPARATION PHOTOGRAPHER [address] [place] [address] [facility] Start: 07-23-2023 End: 07-23-2023 Patient encounter procedure 07/23/2023 2:30 PM EDT Office Visit [address] [address] Divine Dougherty [address] [place] [id number] [facility] Start: 07-07-2023 End: 07-07-2023 Evaluation and management of inpatient [facility] Comment on above: Tear of rotator cuff of right hip, initial encounter OPEN ABDUCTOR TEAR R EPAIR Start: 07-07-2023 End: 07-07-2023 Revj tot hip arthrp bt w/wo agrft/algrft REVISION ARTHROPLASTY HIP BOTH ACETABULAR [...] 06/25/2023 10:00 AM EST Pre-Operative Nurse Assessment [facility] Pre Admission [address] [place] [address] Pre-op testing (Primary Dx); Essential (primary) hypertension; Abnormal finding of blood chemistry, unspecified; Abnormal coagulation profile [facility] Comment on above: Pre-op testing (Prim hayden Dx); Essential (primary) hypertension; Abnormal finding of blood chemistry, unspecified; Abnormal coagulation profile Start: 06-13-2023 COVID-19 Vaccine () COVID-19 Vaccine () [facility] Start: 05-28-2023 End: 05-28-2023 Patient encounter procedure 05/28/2023 11:00 AM EST Office Visit [facility] [address] [place] [address] Peter Gardiner, DO [address] [place] [address] [facility] Start: 05-14-2023 End: 05-14-2024 MR Hip - right WO contrast MRI HIP RIGHT WITHOUT CONTRAST Imaging Routine Pain in prosthetic joint, initial encounter Expected: 05/14/2023, Expires: 05/14/2024 [facility] Comment on above: Expected: 05/14/2023 , Expires: 05/14/2024 Start: 05-04-2023 Advance Directive Discussion Advance Directive Discussion [facility] Start: 05-04-2023 Behavioral Health Screening Behavioral Health Screening [facility] Start: 01-02-2023 Covid-19 Vaccine () Covid-19 Vaccine () [facility] Start: 01-02-2023 COVID-19 VACCINE (4 - 2023-24 season) COVID-19 VACCINE ( season) [facility] Start: 01-02-2023 Influenza vaccination INFLUENZA (Sea son Ended) [facility] Start: 10-27-2022 Bacteria identified in Urine by Culture [facility] Start: 05-04-2022 ADVANCE DIRECTIVE DISCUSSION ADVANCE DIRECTIVE DISCUSSION [facility] Start: 05-04-2022 DEPRESSION ASSESSMENT DEPRESSION ASS ESSMENT [facility] Start: 04-08-2022 Screening for malign ant neoplasm of colon Colonoscopy [facility] Start: 01-02-2022 Influenza vaccination INFLUENZA (Sea son Ended) [facility] Start: 10-07-2021 End: 12-07-2021 Cancer Ag 27-29 [Units/volume] in Serum or Plasma CA 27.29 BLOOD Lab Routine Malignant neoplasm of upper-outer quadrant of left breast in female, estrogen receptor positive (HCC) Expected: 10/07/2021, Expires: 12/07/2021 [facility] Work Phone: Comment on above: Expected: 10/07/2021 , Expires: 12/07/2021 Start: 10-07-2021 End: 12-07-2021 CBC W Auto Differential panel - Blood CBC + DIFF Lab Routine Malignant neoplasm of upper-outer quadrant of left breast in female, estrogen receptor positive (HCC) Expected: 10/07/2021, Expires: 12/07/2021 [facility] Work Phone: Comment on above: Expected: 10/07/2021 , Expires: 12/07/2021 Start: 10-07-2021 End: 12-07-2021 Comprehensive metabolic 2000 panel - Serum or Plasma COMP METABOLIC PANEL Lab Routine Malignant neoplasm of upper-outer quadrant of left breast in female, estrogen receptor positive (HCC) Expected: 10/07/2021, Expires: 12/07/2021 [facility] Work Phone: Comment on above: Expected: 10/07/2021 , Expires: 12/07/2021 Start: 09-25-2021 Mammography MAMMOGRAM [facility] Start: 05-04-2021 ADVANCE DIRECTIVE DISCUSSION ADVANCE DIRECTIVE DISCUSSION [facility] Start: 11-17-2020 COVID-19 VACCINE (3 - Booster for Pfizer series) COVID-19 VACCINE (3 - Booster for Pfizer series) [facility] Start: 10-06-2020 Adult depression screening assessment DEPRESSION SCREENING [facility] Start: 08-15-2020 COVID-19 VACCINE (3 - Booster for Pfizer series) COVID-19 VACCINE (3 - Booster for Pfizer series) [facility] Start: 01-05-2019 Pneumococcal Vaccine : 65+ (2 of 2 - PCV) Pneumococcal Vaccine: 65+ (2 of 2 - PCV) [facility] Start: 01-05-2019 PNEUMOCOCCAL: 65+ (2 - PCV) PNEUMOCOCCAL: 65+ (2 - PCV) [facility] Start: 07-07-2012 BONE DENSITY BONE DENSITY [facility] Start: 07-07-2012 Fall Risk Screening Fall Risk Screen ing [facility] Start: 07-07-2012 Screening for osteoporosis Bone Density Screening [facility] Start: 2007 RSV Vaccine (1 - 1-d ose 60+ series) RSV Vaccine (1 - 1-dose 60+ series) [facility] Start: 07-07-1997 Administration of varicella zoster vaccine Zoster (Shingles) Vaccine (1 of 2) [facility] Start: 07-07-1997 SHINGRIX VACCINE (1 of 2) SHINGRIX VACCINE (1 of 2) [facility] Start: 07-07-1997 Zoster vaccine hzv l david for subcutaneous use ZOSTER (SHINGLES) VACCINE (1 of 2) [facility] Start: 07-07-1992 COLOGUARD (FIT-DNA) COLOGUARD (FIT-D NA) [facility] Start: 07-07-1992 Colonoscopy COLONOSCOPY [facility] Start: 07-07-1992 COLORECTAL CANCER SCREENING COLORECTAL CANCER SCREENING [facility] Start: 07-07-[address] COLONOGRAPHY [facility] Start: 07-07-1992 FECAL OCCULT BLOOD FECAL OCCULT BLOO D [facility] Start: 07-07-1992 LIPID SCREEN LIPID SCREEN [facility] Start: 07-07-1992 Screening for malign ant neoplasm of colon COLORECTAL CANCER SCREENING DISCUSSION [facility] Start: 07-07-1992 SIGMOIDOSCOPY SIGMOIDOSCOPY [facility] Start: 1987 Lipid panel LIPID SCREENING [facility] Start: 1987 Screening for malign ant neoplasm of breast MAMMOGRAM SCREENING DISCUSSION [facility] Start: 07-07-1968 Screening for malign ant neoplasm of cervix CERVICAL CANCER SCREENING DISCUSSION [facility] Start: 07-07-1966 DTaP,Tdap and Td Vaccines (1 - Tdap) DTaP,Tdap and Td Vaccines (1 - Tdap) [facility] Start: 07-07-1966 Third diphtheria, tetanus and acellular pertussis (DTaP) vaccination TDAP (ADULT) [facility] Start: 07-07-1966 Urine microalbumin profile [facility] Start: 07-07-1965 Adult BMI Follow Up Plan Adult BMI F ollow Up Plan [facility] Start: 07-07-1965 HEPATITIS C SCREENING HEPATITIS C SC REENING [facility] Start: 1959 Depression Screening Depression Scre ening [facility] Start: 07-07-1953 PNEUMOCOCCAL: 65+ (1 - PCV) PNEUMOCOCCAL: 65+ (1 - PCV) [facility] Start: 1947 Hepatitis C screening HEPATITI S C VIRUS SCREENING [facility] Start: 1947 Medicare Annual Well ness Visit Medicare Annual Wellness Visit [facility] Start: 1947 Potassium [Moles/vol ume] in Serum or Plasma POTASSIUM [facility] Start: 1947 Screening for osteoporosis DEXA SCAN DISCUSSION [facility] Start: 1947 Tetanus vaccination TETANUS [facility] ANAEROBE CULTURE [facility] Comment on above: Release Upon Orderin g for 1 Occurrences starting 07/07/2023 Bacterial culture an d sensitivity CULTURE WOUND Microbiology Routine 07/07/2023 2:27 PM EST [facility] BODY FLUID CELL COUNT BODY FLUID CELL COUNT Fluids Routine Tear of rotator cuff of right hip, initial encounter 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, initial encounter Release Upon Ordering for 1 Occurrences starting 07/07/2023 [facility] Comment on above: Release Upon Orderin g for 1 Occurrences starting 07/07/2023 End: 08-04-2025 Comprehensive metabolic 2000 panel - Serum or Plasma Comprehensive metabolic panel Lab Routine Primary hypertension 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 ([facility]-HCC) 1 Occurrences starting 08/04/2024 until 08/04/2025 [employer] Work Phone: Comment on above: 1 Occurrences starti ng 08/04/2024 until 08/04/2025 End: 10-16-2024 DBT Breast - bilateral screening SHANE SCREENING [facility] Routine Encounter for screening mammogram for malignant neoplasm of breast 1 Occurrences starting 09/17/2023 until 10/16/2024 [facility] Work Phone: Comment on above: 1 Occurrences starti ng 09/17/2023 until 10/16/2024 End: 07-07-2023 Fungus identified in Unspecified specimen by Culture [employer] Comment on above: Release Upon Orderin g for 1 Occurrences starting 07/07/2023 One Time for 1 Occur rences starting 07/07/2023 until 07/07/2023 End: 08-04-2025 Magnesium [Mass/volume] in Serum or Plasma Magnesium Lab Routine Primary hypertension 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 ([facility]) 1 Occurrences starting 08/04/2024 until 08/04/2025 [facility] Comment on above: 1 Occurrences starti ng 08/04/2024 until 08/04/2025 End: 10-26-2022 SHANE SCREENING W YAW SHANE SCREENING W YAW Radiology Routine Encounter for screening mammogram for malignant neoplasm of breast 1 Occurrences starting 09/26/2021 until 10/26/2022 [facility] Work Phone: Comment on above: 1 Occurrences starti ng 09/26/2021 until 10/26/2022 End: 10-11-2023 SHANE SCREENING W YAW SHANE SCREENING W YAW Radiology Routine Encounter for screening mammogram for malignant neoplasm of breast 1 Occurrences starting 09/11/2022 until 10/11/2023 [facility] Work Phone: Comment on above: 1 Occurrences starti ng 09/11/2022 until 10/11/2023 End: 07-07-2023 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 [employer] [facility] Comment on above: Release Upon Orderin g for 1 Occurrences starting 07/07/2023 One Time for 1 Occur rences starting 07/07/2023 until 07/07/2023 XR Pelvis and Hip - right Views XR HIP WITH PELVIS RIGHT Imaging Routine Primary osteoarthritis of right hip 05/14/2023 9:20 AM [facility] Work Phone: XR Pelvis and Hip - right Views XR HIP WITH PELVIS RIGHT Imaging Routine Tear of gluteus minimus tendon, right, initial encounter 07/23/2023 2:22 PM EDT [facility] XR Pelvis and Hip - right Views XR HIP WITH PELVIS RIGHT Imaging Routine Right hip pain 08/20/2023 3:17 PM EDT [facility] XR Pelvis and Hip - right Views XR HIP WITH PELVIS RIGHT Imaging Routine Hx of total hip arthroplasty, right 11/26/2023 1:53 PM EDT [facility] XR Pelvis and Hip - right Views XR HIP WITH PELVIS RIGHT Imaging Routine Hx of total hip arthroplasty, right 07/14/2024 1:07 PM ED [facility] Immunizations Immunization Date Immunization Notes Care Provider Pablo wheat 02-08-2024 influenza virus vaccine, unspecified formulation Maria E Osman [facility] 02-10-2023 influenza virus vaccine, unspecified formulation Alfreda Lumalini [facility] 02-01-2022 influenza virus vaccine, unspecified formulation Alfreda Lue [facility] 08-13-2021 SARS-CoV-2 mRNA (bzarckrnchv-fzaf-bynbp se) vaccine Alfreda Lue [facility] 01-29-2021 SARS-CoV-2 (COVID-19 ) mRNA BNT-162b2 vax Alfreda Lue [facility] Comment on above: Result Comment: 2022: [id number] 06-20-2020 COVID-19 vaccine, ag e 12+ yr (Moodlerooms - PURPLE TOP) Mikaela Thompson RN Work Phone: [facility] 05-28-2020 SARS-CoV-2 (COVID-19 ) mRNA BNT-162b2 vax Alfreda Lue [facility] 05-18-2020 COVID-19 vaccine, ag e 12+ yr (Ecofoot-HerBabyShower - PURPLE TOP) Mikaela Thompson RN Work Phone: [facility] 01-27-2020 influenza virus vaccine, split virus (incl. purified surface antigen) Elliot Starks Other [employer] Other 01-27-2020 influenza virus vaccine, unspecified formulation Alfreda Lue [facility] 01-20-2019 influenza virus vaccine, unspecified formulation Alfreda Lue [facility] 01-20-2019 influenza, high dose seasonal, preservative-free Mikaela Thompson RN Work Phone: [facility] 03-09-2018 influenza virus vaccine, unspecified formulation Alfreda Lue [facility] 01-05-2018 influenza virus vaccine, split virus (incl. purified surface antigen) Elliot Starks Other [employer] Other 01-05-2018 influenza virus vaccine, unspecified formulation Alfreda Lue [facility] 01-05-2018 influenza, high dose seasonal, preservative-free Mikaela Thompson RN Work Phone: [facility] 01-05-2018 pneumococcal polysaccharide vaccine, 23 valent Mikaela Thompson RN Work Phone: [facility] 02-25-2017 influenza virus vaccine, unspecified formulation Alfreda Lue [facility] 02-17-2017 pneumococcal polysaccharide vaccine, 23 valent Alfreda Lue [facility] 02-05-2017 influenza virus vaccine, split virus (incl. purified surface antigen) Elliot Starks Other [employer] Other 02-05-2017 influenza virus vaccine, unspecified formulation Alfreda Miller [facility] 02-05-2017 pneumococcal conjuga te vaccine, 13 valent Alfreda Lue [facility] 02-01-2002 pneumococcal polysaccharide vaccine, 23 valent Elliot Starks Other [facility] Payers Date Payer Category Payer Private Health Insurance 2023 Medicare (Managed Care) MEDICARE AETNA O [id number] 2022 Self-pay 2021 Medicare O AETNA MEDICARE ember [id number] 2014 Medicare AETNA MEDICARE A ETNA MEDICARE PPO [id number] 2014-Present [phone] [facility] [id number] [place] [address] PPO [id number] 2014 Medicare [id number] 1959 Medicare [id number] 1945 Unknown [id number] 2.16.840.1.798326.3.579.2. 593 1945 Unknown [id number] 2.16.840.1.029217.3.579.2. 593 1945 Unknown [id number] 2.16.840.1.509811.3.579.2. 593 1945 Unknown [id number] 2.16.840.1.835822.3.579.2. 718 1945 Unknown [id number] 2.16.840.1.921896.3.579.2. 1286 1945 Unknown [id number] 2.16.840.1.355020.3.579.2. 1286 8 Unknown [id number] 2.16840.1.530648.3.579.2. 1286 1947 Unknown [id number] 2.16.840.1.264532.3.579.2. 1286 1947 Unknown [id number] 2.16.840.1.188656.3.579.2. 1286 1947 Unknown [id number] 2.16.840.1.393607.3.579.2. 196 1945 Unknown [id number] 2.16.840.1.171644.3.579.2. 196 1945 Unknown [id number] 2.16.840.1.626017.3.579.2. 196 1947 Unknown [id number] 2.16.840.1.615744.3.579.2. 196 1947 Unknown [id number] 2.16.840.1.314369.3.579.2. 196 1947 Unknown [id number] 2.16.840.1.916261.3.579.2. 727 1947 Unknown [id number] 2.16.840.1.614789.3.579.2. 727 1947 Unknown [id number] 2.16.840.1.148686.3.579.2. 727 1947 Unknown [id number] 2.16.840.1.384818.3.579.2. 983 1945 Unknown [id number] 2.16.840.1.897703.3.579.2. 983 1945 Unknown [id number] 2.16.840.1.878896.3.579.2. 983 1945 Unknown [id number] 2.16.840.1.465813.3.579.2. 983 1945 Unknown [id number] 2.16.840.1.516679.3.579.2. 983 1945 Unknown [id number] 2.16.840.1.347297.3.579.2. 983 1945 Unknown [id number] 2.16.840.1.543668.3.579.2. 983 1945 Unknown [id number] 2.16840.1.252549.3.579.2. 983 Private Health Insurance Aetna [facility] [id number] Unknown Unknown [id number] 2.16.840.1.440075.3.579.2. 531 Social History Date Type Detail Facility Start: 12-03-2015 End: 11-26-2023 Tobacco smoking status NHIS Ex-smoker [facility] End: 12-05-1990 History of tobacco use Current smoker [facility] Start: 12-03-2015 End: 05-15-2020 Cigarettes smoked current (pack per day) - Reported 1 [facility] Start: 12-03-2015 End: 11-26-2023 Tobacco use and exposure Smokeless tobacco non-user [facility] Start: 10-08-2020 End: 11-26-2023 Alcohol intake Current drinker of alcohol (finding) [facility] Start: 1945 Sex Assigned At Not on file C [facility] Start: 05-15-2020 End: 05-14-2023 Sex Assigned At [facility] End: 12-05-1990 History of tobacco use Cigarette Smoker [facility] Start: 1945 Sex Assigned At Female F [facility] Tobacco smoking status Never [facility] Start: 05-14-2023 Tobacco smoking stat us NHIS Never smoked tobacco [facility] Has the [employer], [address], or water company threatened to shut off services in your home in past 12Mo No [facility] (I/We) worried wheth er (my/our) food would run out before (I/we) got money to buy more. Never true [facility] Start: 03-19-2017 End: 06-19-2023 Alcohol Comment social [facility] Start: 12-07-2014 End: 05-09-2024 Sex Female (finding) [facility] Start: 03-31-2022 Tobacco Comment quit in 1989 [facility] Start: 05-09-2018 Gender identity Identifies as female gender (finding) [facility] Sexual Orientation [facility] Medical Equipment Procedure Code Equipment Code Equipment Origin al Text Equipment Identifier Dates Anchors, 5.5 Non Punching - [id number] Start: 07-07-2023 Anchors, 5.5 Non Punching - [id number] Start: 07-07-2023 Functional Status Date Assessment Result Facility 06-22-2024 Functional Status N/A [facility] 07-07-2023 Are you deaf, or do you have serious difficulty hearing No 07/07/2023 4:30 PM Marcella Muñoz RN No [facility] 07-07-2023 Are you blind, or do you have serious difficulty seeing, even when wearing glasses No 07/07/2023 4:30 PM Marcella Muñoz RN [facility] 07-07-2023 Do you have serious difficulty walking or climbing stairs No 07/07/2023 4:30 PM Marcella Muñoz RN [facility] 07-07-2023 Do you have difficul ty dressing or bathing No 07/07/2023 4:30 PM Marcella Muñoz RN [facility] 07-07-2023 Because of a physica l, mental, or emotional condition, do you have difficulty doing errands alone such as visiting a physician's office or shopping No 07/07/2023 4:30 PM Marcella Muñoz RN [facility] 02-11-2023 Functional Status N/A [facility] Mental Status Date Assessment Result Facility 07-07-2023 Because of a physica l, mental, or emotional condition, do you have serious difficulty concentrating, remembering, or making decisions No 07/07/2023 4:30 PM Marcella Muñoz RN [facility] Clinical Notes 09-26-2021 to 08-03-2024 Telephone Encounter - Leslie Negron RN - 08/03/2024 12:21 AM EDTTelephone Encounter - Leslie Negron RN - 08/03/2024 12:21 AM EDTHsabiha Oconnelln - 07/14/2024 2:00 PM EDT Note Date & Type Note Facility 08-03-2024 Miscellaneous Notes Ov-11/26/23 Cmp and mg -07/15/23 New cmp and mg order placed and letter sent 08/04/24 documented in this encounter [facility] 08-03-2024 Telephone encounter Note Ov-11/26/23 Cmp and mg -07/15/23 New cmp and mg order placed and letter sent 08/04/24 [facility] 07-27-2024 Miscellaneous Notes P/c from pt requesting refills to [facility]. OV 11/26/23 07/14/24 MAG, CMP, CBC EKG 08/12/23 documented in this encounter [facility] 07-27-2024 Telephone encounter Note P/c from pt requesting refills to [facility]. OV 11/26/23 07/14/24 MAG, CMP, CBC EKG 08/12/23 [facility] 07-14-2024 History of Presen t illness Narrative Ortho Nurse - Established Patient Intake Room#: 5 Date: 07/14/2024 1:15 PM Patient: Bettie Burns MR#: [id number] : 1945 Age: 79 y.o. 1yr R [...] LUMPECTOMY FOOT SURGERY HEART CATHETERIZATION no stents [place] ENDOMETRIAL CRYOABLATION W/US & ENDOMETRIAL CR REMOVAL [...] x 1 month, then 2x/week for maintainence, [facility]/pharmacy #[id number], 165, cm, 02/11/23 10:41:00 EDT, Height/Length Dosing, [...] x 1 month, then 2x/week for maintainence, [facility]/pharmacy #[id number], 165, cm, 02/11/23 10:41:00 EDT, Height/Length Dosing, [...] on face to face time with patient. MEDINA Richardson I have reviewed the findings of my clinical staff below and agree with their assessment. Ortho Nurse - Established Patient Intake Room#: 5 Date: 07/14/2024 1:15 PM Patient: Bettie Burns MR#: [id number] : 1945 Age: 79 y.o. 1yr R [...] LUMPECTOMY FOOT SURGERY HEART CATHETERIZATION no stents [place] ENDOMETRIAL CRYOABLATION W/US & ENDOMETRIAL CR REMOVAL [...] x 1 month, then 2x/week for maintainence, [facility]/pharmacy #[id number], 165, cm, 02/11/23 10:41:00 [...] x 1 month, then 2x/week for maintainence, [facility]/pharmacy #[id number], 165, cm, 02/11/23 10:41:00 [...] penicillins, and tramadol. documented in this encounter [facility] 06-30-2024 Miscellaneous Notes OV 11/26/2023 documented in this encounter [facility] 06-30-2024 Telephone encounter Note OV 11/26/2023 [facility] 06-22-2024 Hospital Discharg e instructions Patient Education [...] Follow these instructions at home: Medicines Take cder-ydh-vgpmyhk and prescription medicines only as told by [...] or the blood stops without treatment. Take nkbg-cbm-cilumco and prescription medicines only as told by your health care provider. Drink enough fluid to keep your urine pale yellow. This information is not intended to replace advice given to you by your health care provider. Make sure you discuss any questions you have with your health care provider. Document Revised: 12/19/2020 Document Reviewed: 12/19/2020 [employer] Patient Education 2023 ID.me. 06/22/2024 15:04:17 Overactive Bladder, Adult Overactive Bladder, [...] your health care provider. General instructions Take ofwj-sfq-ogqgtpv and prescription medicines only as told by [...] provider. Document Revised: 01/07/2021 Document Reviewed: 01/07/2021 [employer] Patient Education 2023 ID.me. Follow Up Care 06/22/2024 10:24:57 With:Paul VILLEGAS, Alfreda Palacios URL, URO Address: When: Unknown Comments:F/U pending cystoscopy [facility] 06-22-2024 Note Patient Education Obstetrics and [...] health care provider. General instructions ??? Take zqwc-vsf-lmmdvoe and prescription medicines only as told by [...] drink, and whe (more content not included)... [facility] 04-30-2024 Evaluation note Diagnosis Onset Date Resolution Acute bilateral otitis media acute April 30, 024 9:54am [facility] Work Phone: 1(164) 134-917812-28-2024 Evaluation note* Diagnosis Onset Date Resolution Status Admit Date Acute bilateral otitis media acute April 30, 2024 9:54am Acute otitis media with effusion acute May 09 9:07am Insomnia acute May 09 025 9:07am Reaction, situational, acute , to stress acute May 09 9:07am [facility] Work Phone: 1(328) 949-146308-31-2024 Miscellaneous Notes* Telephone Encounter - Jacinta Neri [...] Low 56 Low CM [facility] Telephone encounter Note* Telephone Encounter - Jacinta [...] >59 ml/min/1.73sq.m 46 Low 56 Low CM [employer] [id number] History of Present illness Narrative* Hal Fischer - 11/26/2023 2:00 PM EDT Ortho Nurse - Established Patient Intake Room#: 3 --- Patient presents today for 4 month follow-up of RTHA. Patient states that pain is 2/10today. Patient states that she is improved especially with PT, but is still limping more than she anticipated. Patient has been doing PT at [facility] and this helps, says next week is her last session. Patient states that she is due for nerve block in SI joint at [facility] who she seesregularly, states that she needs approval from Dr. Ohara on this. Date: 11/26/2023 2:25 PM Patient: Bettie Burns MR#: [id number] : 1945 Age: 78 y.o. Referring Physician: [...] LUMPECTOMY FOOT SURGERY HEART CATHETERIZATION no stents [place] ENDOMETRIAL CRYOABLATION W/US & ENDOMETRIAL CR REMOVAL [...] x 1 month, then 2x/week for maintainence, [facility]/pharmacy #[id number], 165, cm, 02/11/23 10:41:00 EDT, Height/Length Dosing, [...] x 1 month, then 2x/week for maintainence, [facility]/pharmacy #[id number], 165, cm, 02/11/23 10:41:00 [...] anticipated. Patient has been doing PT at [facility] and this helps, says next week is her last session. Patient states that she is due for nerve block in SI joint at [facility] who she seesregularly, states that she needs approval from Dr. Ohara on this. Date: 11/26/2023 2:25 PM Patient: Bettie Burns MR#: [id number] : 1945 Age: 78 y.o. Referring Physician: [...] LUMPECTOMY FOOT SURGERY HEART CATHETERIZATION no stents [place] ENDOMETRIAL CRYOABLATION W/US & ENDOMETRIAL CR REMOVAL [...] x 1 month, then 2x/week for maintainence, [facility]/pharmacy #[id number], 165, cm, 02/11/23 10:41:00 EDT, Height/Length Dosing, [...] x 1 month, then 2x/week for maintainence, [facility]/pharmacy #[id number], 165, cm, 02/11/23 10:41:00 EDT, Height/Length Dosing, [...] oxycodone, penicillins, and tramadol. documented in this [facility]07-25-2024 History of Present illness Narrative* Mainor Post MD - 11/26/2023 10:30 AM EDT Bettie Burns Date of visit: 11/26/2023 Date of : 1945 Age: 78 y.o. Patient Active Problem List Diagnosis Paroxysmal atrial fibrillation ([facility]) Hypertension SOB (shortness of breath) Dyspnea Palpitations [...] Burns was seen in follow-up in the [place] office. Records are reviewed. She is a [...] avoidance. Past Medical History: Diagnosis Date A-fib ([facility]) hx of Arrhythmia 12/2016 ATRIAL FIBRILLATION Arthritis Breast cancer ([facility]) 11/14/2015 LEFT COVID-19 03/2020 History [...] 09/28/2018 Performed by Amber Quiñonez MD at [facility] () ARTHROSCOPY REPAIR ROTATOR CUFF SHOULDER Right 05/16/2020 Performed by Melchor Rivera DO at [facility] ARTHROSCOPY SHOULDER Right 05/16/2020 Performed by Melchor Rivera DO at [facility] BREAST BIOPSY Left 2015 BREAST LUMPECTOMY Left 11/14/2015 WITH RADIATION BREAST SURGERY Left 2012 lumpectomy CATARACT EXTRACTION CHOLECYSTECTOMY COLONOSCOPY Coronary angiogram and left ventricular gram/pressure N/A 08/08/2021 Performed by Bertram Lal MD at [facility] CARDIAC CATH LABS EYE SURGERY lids [...] Needs: No Transportation Needs (07/07/2023) Received from [facility], [facility] PRAPARE - Transportation Lack of Transportation (Medical): No Lack of Transportation (Non-Medical): No Physical Activity: Not on file Stress: Not on file Social Connections: Not on file Interpersonal Safety: Not on file Housing Instability: Low Risk (07/07/2023) Received from [facility], [facility] Housing Stability Vital Sign Unable to Pay [...] STARKS MD Referring Physician: Elliot Starks MD [address] [place] [address] documented in this [facility]The [facility] Miscellaneous Notes* Telephone Encounter - Medina Jaramillo MA - 11/25/2023 10:56 AM EDT Called patient to remind them to bring their most current copy of their medication list with them to their appt. Patient verbalizes understanding. documented in this encounterThe [facility]07-[facility]24 Telephone encounter Note* Telephone Encounter - Medina Jaramillo MA - 11/25/2023 10:56 AM EDT Called patient to remind them to bring their most current copy of their medication list with them to their appt. Patient verbalizes understanding. [facility]06-17-[facility] Miscellaneous Notes* Telephone Encounter - Jacinta Neri RN - 10/19/2023 9:19 AM EDT Last OV 08/25 CMP 07/25 documented in this encounterThe [facility] System06-17-2024 Telephone encounter Note* Telephone Encounter - Jacinta Neri RN - 10/19/2023 9:19 AM EDT Last OV 08/25 CMP 07/25 [facility]05-16-2024 Telephone encounter Note* Telephone Encounter - Matt Adams RN - 09/17/2023 1:30 PM EDT Order faxed to Torey Julio Pt aware. Matt Adams RN [facility]05-16-2024 Miscellaneous Notes* Telephone Encounter - Matt Adams RN - 09/17/2023 1:30 PM EDT Order faxed to Torey Julio Pt aware. Matt Adams RN * Telephone Encounter - Matt Adams RN - 09/17/2023 10:18 AM EDT Pt called to request yearly Mammogram order I have pended order as previously completed Pt requests to fax to Nori Lema [phone] BRM/HM: please review and sign if agreeable Matt Adams RN [facility] Telephone encounter Note * Telephone Encounter - Matt Adams RN - 09/17/2023 10:18 AM EDT Pt called to request yearly Mammogram order I have pended order as previously completed Pt requests to fax to Nori Lema [phone] BRM/HM: please review and sign if agreeable Matt Adams RN [facility]04-18-2024 History of Present illness Narrative* Eva [...] she is interested in Physcial Therapy through [facility]. Date: 08/20/2023 2:38 PM Patient: Bettie Burns MR#: [id number] : 1945 Age: 78 y.o. Referring Physician: [...] LUMPECTOMY FOOT SURGERY HEART CATHETERIZATION no stents AZ ENDOMETRIAL CRYOABLATION REMOVAL BILIARY DUCT/GALLBLADDER CALCULI/DEBRIS PERCUTANEOUS [...] x 1 month, then 2x/week for maintainence, [facility]/pharmacy #[id number], 165, cm, 02/11/23 10:41:00 EDT, Height/Length Dosing, [...] arise. All pertinant portions of the clinical customer support analyst documentation was reviewed and I agree with [...] she is interested in Physcial Therapy through [facility]. Date: 08/20/2023 2:38 PM Patient: Bettie Burns MR#: [id number] : 1945 Age: 78 y.o. Referring Physician: Self, Self Insurance: Payor: MEDICARE AETNA HMO OR PPO / Plan: MEDICARE [employer] PPO / Product Type: *No Product type* [...] LUMPECTOMY FOOT SURGERY HEART CATHETERIZATION no stents AZ ENDOMETRIAL CRYOABLATION REMOVAL BILIARY DUCT/GALLBLADDER CALCULI/DEBRIS PERCUTANEOUS [...] x 1 month, then 2x/week for maintainence, [facility]/pharmacy #[id number], 165, cm, 02/11/23 10:41:00 [...] oxycodone, penicillins, and tramadol. [facility] Miscellaneous Notes* Telephone Encounter - Ray Wills LPN - 08/10/2023 12:45 AM EDT Theresa 08/12/23 Cmp, mg 07/15/23 documented in this encounterThe [facility]04-[facility]-2024 Telephone encounter Note* Telephone Encounter - Ray Wills LPN - 08/10/2023 12:45 AM EDT Theresa 08/12/23 Cmp, mg 07/15/23 [id number] History of Present illness Narrative* Eva Landryclair [...] 07/23/2023 2:45 PM Patient: Bettie Burns MR#: [id number] : 1945 Age: 78 y.o. Referring Physician: [...] LUMPECTOMY FOOT SURGERY HEART CATHETERIZATION no stents AZ ENDOMETRIAL CRYOABLATION REMOVAL BILIARY DUCT/GALLBLADDER CALCULI/DEBRIS PERCUTANEOUS [...] x 1 month, then 2x/week for maintainence, [facility]/pharmacy #[id number], 165, cm, 02/11/23 10:41:00 EDT, Height/Length Dosing, [...] visit. All pertinant portions of the clinical customer support analyst documentation was reviewed. Divine Dougherty I have reviewed the findings of the clinical customer support analyst and agree with their assessment. Divine Dougherty [...] 07/23/2023 2:45 PM Patient: Bettie Burns MR#: [id number] : 1945 Age: 78 y.o. Referring Physician: Divine Dougherty Insurance: Payor: MEDICARE [employer] HMO OR PPO / Plan: MEDICARE AETNA [...] LUMPECTOMY FOOT SURGERY HEART CATHETERIZATION no stents AZ ENDOMETRIAL CRYOABLATION REMOVAL BILIARY DUCT/GALLBLADDER CALCULI/DEBRIS PERCUTANEOUS [...] x 1 month, then 2x/week for maintainence, [facility]/pharmacy #[id number], 165, cm, 02/11/23 10:41:00 [...] oxycodone, penicillins, and tramadol. [facility] Miscellaneous Notes* Telephone Encounter - Estela Bueno RN - 07/17/2023 1:28 AM EDT Dose confirmed with patient documented in this encounterThe [facility]03-15-2024 Telephone encounter Note* Telephone Encounter - Estela Bueno RN - 07/17/2023 1:28 AM EDT Dose confirmed with patient The [facility]03-13-[facility]24 Miscellaneous Notes* Telephone Encounter - Ashia Goncalves [...] she was willing. slm documented in this encounterThe [facility] Telephone encounter Note* Telephone Encounter - Ashia Goncalves RN - 07/15/2023 8:46 AM EDT Pt called states had knee surgery July [...] the ER and she was willing. slm [facility]03-06-2024 Miscellaneous Notes* Nursing Notes - Dolly Liao [...] 07, 2023 ATTENDING PHYSICIAN: Miko Ohara M.D. 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 PROCEDURE PERFORMED: Unlisted procedure of right hip and pelvis, dual-row suture anchor repair of 100% massive abductor tear of right hip, work equivalent similar to CPT 45617 Periarticular injection of right hip. ANESTHESIA: General. [...] it as a CPT similar to that, 54498. ATTENDING/ASSISTING PARTICIPATION: This operation could not have been safely performed (without compromising the technical results or length of the procedure) without the assistance of a skilled surgical instrument mechanic. A surgical instrument mechanic was medically necessary for positioning, retraction and [...] OPERATIVE/PROCEDURE NOTE Bettie Burns 77 y.o. female [id number] SURGEON Surgeons and Role: * Miko Ohara MD - Primary CHIEF OF PEDIATRIC UROLOGY MEDINA Richardson ANESTHESIOLOGIST AUTO BODY REPAIR ESTIMATOR: Chance Ngo CRNA; PALAK Barrett SURGICAL STAFF Accountancy Professor: Kisha Karimi RN; Whit Govea RN Nurse [...] Implant Name Type Inv. Item Serial No. Customer Care Voice Consultant Lot No. [id number] No. Used Action ANCHORS, 5.5 NON PUNCHING - [id number] ANCHORS, 5.5 NON PUNCHING HIST ARTHREX [id number] Right 1 Implanted ANCHORS, 5.5 NON PUNCHING - [id number] ANCHORS, 5.5 NON PUNCHING HIST ARTHREX [id number] Right 3 Implanted SPECIMENS ID Type Source [...] Miko Ohara MD 07/07/2023 1434 Paula Barrera APRN-COLOR SEPARATION PHOTOGRAPHER July 07, 2023 3:28 PM * Nursing Notes - Chelsea Bledsoe RN - 07/07/2023 10:52 AM EST Unable to doppler right dorsalis pedis pulse. documented in this encounterOhio[facility] Nurse Note* Nursing Notes - Dolly Liao [...] patient discharged home with daughter and . [facility]03[facility] Hospital Discharge instructions* Discharge Instructions* Carmen Sebastian [...] at all times - Use a leg sexer to get in and out of bed [...] - 2023 12:01 PM EST Contact Office ([phone]) if: > Any falls or injuries > [...] incision or operative leg. documented in this [facility]03-06-2024 History of Present illness Narrative* Carmen Sebastian [...] SUBJECTIVE: No new symptoms or complaints PAIN RATIN10 OBJECTIVE: Lab Results Component Value Date WBC [...] Time In/Out Time In 1800 Time Out 183 Total Visit Time 36 minutes Initial Evaluation/Screen Completed? yes General Information RN Approved Intervention as tolerated Admitting Diagnosis right abductor tear Surgical Procedure right abductor repair Past Surgical History Past Surgical History: Procedure Laterality Date HIP REPLACEMENT 2021 ABLATION NERVE RADIOFREQUENCY PULSED 09/2018 for a-fib with [facility] APPENDECTOMY BREAST LUMPECTOMY FOOT SURGERY HEART CATHETERIZATION no stents [place] ENDOMETRIAL CRYOABLATION REMOVAL BILIARY DUCT/GALLBLADDER CALCULI/DEBRIS PERCUTANEOUS [...] 0 Equipment Available wheeled walker;elevated toilet seat;shower chair;manager speech Cognitive Status Examination Orientation Status (Cognition) oriented [...] Supine to Sit, Rehab Eval Level of [place]: Supine/Sit stand-by assist Physical Assist/Nonphysical Assist: Supine/Sit 1 person assist Transfer Skill: Sit to Stand, Rehab Eval Level of [place]: Sit/Stand contact guard Physical Assist/Nonphysical Assist: Sit/Stand 1 person assist Weight-Bearing Restrictions: Sit/Stand toe touch weight-bearing Assistive Device for Transfer: Sit/Stand wheeled walker Upper Body Dressing Level of [place] independent Physical Assist/Nonphysical Assist set-up required Lower Body Dressing Level of [place] maximum assist (25% patients effort) Physical Assist/Nonphysical Assist 1 person assist Assistive Device manager speech General Therapy Interventions Planned Therapy Interventions (OT Eval) ADL retraining;balance training;transfer training Clinical Impression Co-evaluation/co-treatment performed? Yes, combination of simultaneous billable and individual billable skilled care was necessary due to medical complexity and functional deficits Patient Instruction/Education comments Pt instructed on LB dressing techniques donning underwear and shorts min assist in sitting and standing with training on use of manager speech to maintain hip precautions Rehab Potential (OT [...] hygiene training Therapist Information License # [id number] 1. Pt will complete LB dressing SBA [...] LUMPECTOMY FOOT SURGERY HEART CATHETERIZATION no stents [place] ENDOMETRIAL CRYOABLATION REMOVAL BILIARY DUCT/GALLBLADDER CALCULI/DEBRIS PERCUTANEOUS [...] Supine to Sit, Rehab Eval Level of [place]: Supine/Sit stand-by assist Physical Assist/Nonphysical Assist: Supine/Sit 1 person assist Transfer Skill: Sit To Stand, Rehab Eval [place] (Sit-Stand Transfers) contact guard Physical Assist/Nonphysical Assist: Sit/Stand 1 person assist Weight-Bearing Restrictions: Sit/Stand toe touch weight-bearing Assistive Device For Transfer: Sit/Stand 2 wheeled walker Gait Skills, PT Eval Level of [place]: Gait contact guard Physical Assist/Nonphysical Assist: Gait [...] educated on hip precautions, use of leg sexer and weight bearing status. Pteducated to only [...] DISCUSSED WITH DR OHARA. documented in this [facility]03-06-2024 Hospital course Narrative* Chance Mahoney MD - [...] x 1 month, then 2x/week for maintainence, [facility]/pharmacy #[id number], 165, cm, 02/11/23 10:41:00 EDT, Height/Length Dosing, [...] Department Dept Phone 07/23/2023 2:30 PM Divine Dougherty [facility] Orthopedics [phone] documented in this encounterOhiohealth [facility]03-06-2024 Surgery Postoperative evaluation and management note* Op Note - Miko Ohara MD - 2023 5:54 AM EST DATE OF PROCEDURE: July 07, 2023 ATTENDING PHYSICIAN: Miko Ohara M.D. 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 PROCEDURE PERFORMED: Unlisted procedure of right hip and pelvis, dual-row suture anchor repair of 100% massive abductor tear of right hip, work equivalent similar to CPT 71214 Periarticular injection of right hip. ANESTHESIA: General. [...] it as a CPT similar to that, 10638. ATTENDING/ASSISTING PARTICIPATION: This operation could not have been safely performed (without compromising the technical results or length of the procedure) without the assistance of a skilled surgical instrument mechanic. A surgical instrument mechanic was medically necessary for positioning, retraction and instrume ntation. [facility] [employer]03-06-2024 Nurse Note* Nursing Notes - Aidee Field RN - 2023 4:10 AM EST Assessment remains unchanged from previous. Neuro checks WN, abductor pillow in place. Call light within reach. [facility] [employer]03-06-2024 Nurse Note* Nursing Notes - Aidee Field RN - 2023 12:05 AM EST Assessment remains unchanged from previous. Neuro checks WNL, abductor pillow in place. Denies futher needs, call light within reach. [facility]03-05-2024 Consult note* Chance Mahoney MD - 07/07/2023 [...] LUMPECTOMY FOOT SURGERY HEART CATHETERIZATION no stents [place] ENDOMETRIAL CRYOABLATION REMOVAL BILIARY DUCT/GALLBLADDER CALCULI/DEBRIS PERCUTANEOUS [...] metabolic panel in the morning GI prophylaxis. [facility]03-05-2024 Consult note* Chance Mahoney MD - 07/07/2023 [...] LUMPECTOMY FOOT SURGERY HEART CATHETERIZATION no stents [place] ENDOMETRIAL CRYOABLATION REMOVAL BILIARY DUCT/GALLBLADDER CALCULI/DEBRIS PERCUTANEOUS [...] the morning GI prophylaxis. documented in this encounterOhiohealth [facility] Center03-05-2024 Nurse Note* Nursing Notes - Marcella Lozano RN - 07/07/2023 4:10 PM EST Arrived to room 3761 from PACU. Bedside report received from RICARDO Jacobo. Oriented to room and provided call light. Admission assessment, head to toe and post op vitals initiated. Fresh ice water and crackers provided. Family members accompanying patient, denies additional needs, call light in reach. FAITH intact flashing green. [facility]03-[facility] Nurse Note* Sara Garcia RN - 07/07/2023 4:00 PM EST Patient transferred to [facility] via cart in stable condition. Report given to RICARDO Kim. Cart left in locked and lowest position with side rails up x2. Snack and call light given to patient. Monitorsand alarms on and attached to patient. * Edison Perez RN - 07/07/2023 3:30 PM EST Patient transported to PACU with Damián AUTO BODY REPAIR ESTIMATOR. Reports given to Sara SIVLA at 1530H. * Whit Govea RN - 07/07/2023 2:04 PM EST OR 3 room temp: 65.1F Humidity: 44% Fire score of: 2 documented in this encounterOhiohealth [facility] Center03-05-2024 Nurse Surgical operation note* Sara Garcia RN - 07/07/2023 4:00 PM EST Patient transferred to [facility] via cart in stable condition. Report given to RICARDO Kim. Cart left in locked and lowest position with side rails up x2. Snack and call light given to patient. Monitorsand alarms on and attached to patient. [facility]03-05-2024 Nurse Surgical operation note* Edison Perez RN - 07/07/2023 3:30 PM EST Patient transported to PACU with Damián AUTO BODY REPAIR ESTIMATOR. Reports given to Sara SILVA at 1530H. [facility]03-05-[facility] Surgery Postoperative evaluation and management note* Brief Op Note - MEDINA Richardson - 07/07/2023 3:28 PM EST POST OPERATIVE/PROCEDURE NOTE Bettie Burns 77 y.o. female [id number] SURGEON Surgeons and Role: * Miko Ohara MD - Primary CHIEF OF PEDIATRIC UROLOGY MEDINA Richardson ANESTHESIOLOGIST AUTO BODY REPAIR ESTIMATOR: Chance Ngo CRNA; PALAK Barrett SURGICAL STAFF Accountancy Professor: Kisha Karimi, RICARDO; Whit Govea, RN Nurse [...] Implant Name Type Inv. Item Serial No. Customer Care Voice Consultant Lot No. LRB No. Used Action ANCHORS, 5.5 NON PUNCHING - [id number] ANCHORS, 5.5 NON PUNCHING HIST ARTHREX [id number] Right 1 Implanted ANCHORS, 5.5 NON PUNCHING - [id number] ANCHORS, 5.5 NON PUNCHING HIST ARTHREX [id number] Right 3 Implanted SPECIMENS ID Type Source Tests Collected by Time Destination A : Right hip incisional fluid (1-2) (Anaerobic & Aerobic) Fluid/Swab - Other SURGICAL WOUND ANAEROBE CULTURE Miko Ohara MD 07/07/2023 9948 B : Right hip fluid (cell count, defferential, & culture) Fluid, Unspecified FLUID, UNSPECIFIEDBODY FLUID CELL COUNT Miko Ohara MD 07/07/2023 1429 C : Right hip suture (1-3) (Anaerobic & Aerobic) Surgical Wound SURGICAL WOUND FUNGUS CULTURE, ACID FAST CULTURE, ANAEROBE CULTURE Miko Ohara MD 07/07/2023 1434 MEDINA Richardson July 07, 2023 3:28 PM [facility] [employer] [id number] Nurse Surgical operation note* Whit Govea RN - 07/07/2023 2:04 PM EST OR 3 room temp: 65.1F Humidity: 44% Fire score of: 2 [facility] [employer] [id number] Nurse Note* Nursing Notes - Chelsea Bledsoe RN - 07/07/2023 10:52 AM EST Unable to doppler right dorsalis pedis pulse. [facility] [employer] [id number] Miscellaneous Notes* Telephone Encounter - Jacqueline Sparrow [...] to Dr Ohara office. documented in this encounterKettering Health SpringfieldITmedia KK02-16-2024 Telephone encounter Note* Telephone Encounter - Jacqueline [...] on risk, holding Eliquis and Celebrex question. [facility]16[facility]2024 Telephone encounter Note* Telephone Encounter - Donna Diaz MD - 06/19/2023 12:01 PM EST Okay to proceed with surgery at moderate risk Can use Celebrex Hold Eliquis for 2 days resume after surgery [employer] Work Phone: [phone]) 362-699302-16-2024 Telephone encounter Note* Telephone Encounter - Jacqueline Sparrow RN - 06/19/2023 12:01 PM EST Clearance note faxed back to Dr Ohara office. [employer] [id number] History of Present illness Narrative* Eva Abrams [...] year ago with Dr. Denver Hughes in [place]. Pt states she is looking for a second opinion due to having issues from this past surgery. Date: 06/18/2023 2:32 PM Patient: Bettie Burns MR#: [id number] : 1945 Age: 77 y.o. Referring Physician: [...] APPENDECTOMY BREAST LUMPECTOMY FOOT SURGERY HEART CATHETERIZATION AZ ENDOMETRIAL CRYOABLATION REMOVAL BILIARY DUCT/GALLBLADDER CALCULI/DEBRIS PERCUTANEOUS [...] tendons as discussed in detail above. 3. [id number] amount of fluid along the lateral aspect [...] scheduling an appointment for [facility] and the potential surgical date, and reviewing [...] APPENDECTOMY BREAST LUMPECTOMY FOOT SURGERY HEART CATHETERIZATION AZ ENDOMETRIAL CRYOABLATION REMOVAL BILIARY DUCT/GALLBLADDER CALCULI/DEBRIS PERCUTANEOUS W/ IMAGE REMOVAL CATARACT (PEM) ROTATOR CUFF REPAIR History reviewed. No pertinent family history. Social History Socioeconomic History Marital status: Tobacco Use Smoking status: Never Smokeless tobacco: Never Social Determinants of Health Food Insecurity: No Food Insecurity (06/02/2023) Received from [employer] Hunger Screening Within the past 12 [...] Morphine Oxycodone Penicillins Tramadol documented in this [facility]01-30-2024 History of Present illness Narrative* Donna Diaz [...] issues. Past Medical History: Diagnosis Date A-fib ([facility]) hx of Arrhythmia 12/2016 ATRIAL FIBRILLATION Arthritis Breast cancer ([facility]) 11/14/2015 LEFT COVID-19 03/2020 History of bleeding ulcers Hypertension Migraines Pneumonia d/t covid Prolonged emergence from general anesthesia Visual impairment glasses No data recorded No data recorded No data recorded Past Surgical History: Procedure Laterality Date ABLATION OF DYSRHYTHMIC FOCUS Right nerve ablation, L4 and L5 Afib ablation with SHANICE - CRYO, Rhythmia, ICE N/A 09/28/2018 Performed by Amber Quiñonez MD at [facility] () ARTHROSCOPY REPAIR ROTATOR CUFF SHOULDER Right 05/16/2020 Performed by Melchor Rivera DO at [facility] ARTHROSCOPY SHOULDER Right 05/16/2020 Performed by Melchor Rivera DO at [facility] BREAST BIOPSY Left 2016 BREAST LUMPECTOMY Left 11/14/2015 WITH RADIATION BREAST SURGERY Left 2013 lumpectomy CATARACT EXTRACTION CHOLECYSTECTOMY COLONOSCOPY Coronary angiogram and left ventricular gram/pressure N/A 08/08/2021 Performed by Bertram Lal MD at [facility] CARDIAC CATH LABS EYE SURGERY lids [...] STARKS MD Referring Physician: Elliot Starks MD [address] [place] [address] documented in this encounterKettering Health SpringfieldIBillionaire Mclaren Bay [id number] History of Present illness Narrative* Divine Cruzfin - 05/14/2023 9:30 AM EST Ortho Nurse - Patient Intake Room#: 1 --- SEISMIC PROSPECTING OBSERVER R Hip pain, had R THR in [...] 05/14/2023 9:44 AM Patient: Bettie Burns MR#: [id number] : 1945 Age: 77 y.o. Referring Physician: [...] [x]cane, []bracing Are you followed by a stoneworking belt sander? [x] [] Name: Dr. Waleska Zhu - Torey Lowe Are you followed by pain management? [x] [] Name: Dr. Cedeno - Xenia Wayne @ [facility] Are you followed by any other specialists? [x] [] Name: Oncolgist - Dr. Choi [facility] Urologist - Dr. Christian Bourne Outpatient [...] abductor muscles as well as ESR/CRP and Kane and Chromium labs today. I will see [...] APPENDECTOMY BREAST LUMPECTOMY FOOT SURGERY HEART CATHETERIZATION AZ ENDOMETRIAL CRYOABLATION REMOVAL BILIARY DUCT/GALLBLADDER CALCULI/DEBRIS PERCUTANEOUS [...] Morphine Oxycodone Penicillins Tramadol documented in this encounterOhiohealth [facility] Medical Center11-27-2023 Evaluation note* Encounter Date Diagnosis Assessment Notes [...] verbalizes understanding and agrees with tx plan. [employer] Other [id number] Hospital Discharge instructions Patient Education 02/11/2023 11:16:08 [...] provider. Document Revised: 08/29/2021 Document Reviewed: 08/29/2021 [employer] Patient Education 2022 ID.me. Follow Up Care 11/06/2022 15:31:52 With:Paul VILLEGAS, PERLA Araujo, URO Address: When:Within 3 Month(s) [facility] 07-17-2023 Evaluation note* Encounter Date Diagnosis Assessment Notes Treatment Notes Treatment Clinical Notes Nov, Dysuria (ICD-10 - R30.0) [employer] Other 06-29-2023 Evaluation note* Encounter Date Diagnosis Assessment Notes Treatment Notes Treatment Clinical Notes Oct, Frequent UTI (ICD-10 - N39.0) Pt requests Urology referral. Discussed also getting CT to move along process. Oct, Dyshidrotic eczema (ICD-10 - L30.1) Will treat with steroid cream prn [employer] Other 06-26-2023 Evaluation note* Encounter Date Diagnosis Assessment Notes Treatment Notes Treatment Clinical Notes Oct, Dysuria (ICD-10 - R30.0) [employer] Other 05-11-2023 Miscellaneous Notes* Telephone Encounter - Matt Adams RN - 09/11/2022 11:43 AM EDT Order faxed to [facility] and pt is aware. Matt Adams RN * Telephone Encounter - Matt Adams RN - 09/11/2022 9:51 AM EDT Pt called to request yearly Mammogram order I have pended order as previously completed Pt requests to fax to Nori Lema [phone] BRM/HM: please review and sign if agreeable Matt Adams RN documented in this encounterMer[facility]04-10-2023 Evaluation note* Encounter Date Diagnosis Assessment Notes Treatment Notes Treatment Clinical Notes Aug, Dysuria (ICD-10 - R30.0) [employer] Other 03-16-2023 Evaluation note* Encounter Date Diagnosis [...] N32.81) chronic and improved on present med [employer] Other 02-20-2023 Evaluation note* Encounter Date Diagnosis Assessment Notes Treatment Notes Treatment Clinical Notes Jun, Dysuria (ICD-10 - R30.0) [employer] Other 02-03-2023 Evaluation note* Encounter Date Diagnosis Assessment Notes Treatment Notes Treatment Clinical Notes Jun, OAB (overactive bladder) (ICD-10 - N32.81) [employer] Other 02-01-2023 Evaluation note* Encounter Date Diagnosis Assessment Notes Treatment Notes Treatment Clinical Notes Jun, OAB (overactive bladder) (ICD-10 - N32.81) Patient request to try new medication reviewed side effect profile. Patient declines urology or GRADING MACHINE FEEDER referral at this time. Jun, Essential hypertension (ICD-10 - I10) reviewed and updated medications she will follow-up with cardiology in Jun, Hypokalemia (ICD-10 - E87.6) Reviewed and updated medications. Discussed foods that are high in potassium Jun, Right lumbar pain (ICD-10 - M54.50) Follow-up with Dr. Rivera as scheduled in June. She does have limping with her gait. [employer] Other 05-26-2022 Miscellaneous Notes* Telephone Encounter - Andrew Choi MD - 09/26/2021 5:13 PM EDT Okay to change to screening mammogram. Order signed. ASIYA Ford * Telephone Encounter - Mikaela Thompson RN - 09/26/2021 2:33 PM EDT Pt scheduled for diagnostic mamm tomorrow @ [facility]. Hospital calls to ask if this could be changed to a screening mammogram since the pt is greater than 2 years from diagnosis? Mikaela Thompson RN documented in this encounterMercy Health Willard HospitalEvaluation + Plan note Future Appointments Appointment Date:05/27/2023 08:45:00 AM Scheduled Provider:Paul VILLEGAS, Alfreda Palacios Location:[facility] Appointment Type:URO Office Visit [facility] evaluation + Plan note Future Appointments Appointment Date:07/22/2024 10:30:00 AM Scheduled Provider: Location:[facility] Appointment Type:Urology CALL PAT FT Appointment Date:07/25/2024 08:15:00 AM Scheduled Provider: Location:[facility] Appointment Type:Urology FT [facility] evaluation + Plan note Future Appointments Appointment Date:07/22/2024 10:30:00 AM Scheduled Provider: Location:[facility] Appointment Type:Urology CALL PAT FT Appointment Date:07/25/2024 08:15:00 AM Scheduled Provider: Location:[facility] Appointment Type:Urology FT Diagnostic Tests Pending * Urine Culture 06/22/24 [facility] Evaluation note* Diagnosis Encounter for screening mammogram for malignant neoplasm of breast- Primary Other screening mammogram documented in this encounter [facility] [place] [facility]* Diagnosis Malignant neoplasm of upper-outer quadrant of left breast in female, estrogen receptor positive (HCC)- Primary documented in this encounter [facility] noteNo [employer] Other Evaluation note* Diagnosis Encounter for screening mammogram for malignant neoplasm of breast- Primary Other screening mammogram documented in this encounter [facility] noteNo assessment information [facility] Work Phone: Evaluation note* Diagnosis Pain in prosthetic joint, initial encounter- Primary Primary osteoarthritis of right hip Primary localized osteoarthrosis, pelvic region and thigh documented in this encounter [facility]* Diagnosis Right hip pain- Primary Pain in joint, pelvic region and thigh Pre-op testing- Primary Preoperative examination, unspecified Essential (primary) hypertension Unspecified essential hypertension Abnormal finding of blood chemistry, unspecified Abnormal coagulation profile Tear of rotator cuff of right hip, initial encounter 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, initial encounter documented in this encounter [facility]* Diagnosis Status post revision of total hip- Primary Hip joint replacement by other means Pre-op testing Preoperative examination, unspecified Tear of rotator cuff of right hip, initial encounter 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, initial encounter Acute postoperative pain of right hip documented in this encounter [facility]* Diagnosis Tear of gluteus minimus tendon, right, initial encounter- Primary documented in this encounter [facility]* Diagnosis Right hip pain- Primary Pain in joint, pelvic region and thigh documented in this encounter [facility]* Diagnosis Onset Date Resolution Status Dysuria noneactive [facility] Work Phone: Evaluation note* Diagnosis Hx of total hip arthroplasty, right- Primary documented in this encounter [facility] note* Diagnosis Paroxysmal atrial fibrillation (CMS-HCC)- Primary Atrial fibrillation Primary hypertension Unspecified essential hypertension Chronic coronary artery disease Coronary atherosclerosis of unspecified type of vessel, agdaagux or graft documented [facility]* Diagnosis Paroxysmal atrial fibrillation (CMS-HCC)- Primary Atrial fibrillation Unstable angina (CMS-HCC) Intermediate coronary syndrome SOB (shortness of breath) Shortness of breath documented in this encounter [facility]* Diagnosis Hx of total hip arthroplasty, right- Primary documented in this encounter [facility] System[facility] note* Diagnosis Paroxysmal atrial fibrillation (CMS-HCC) Atrial fibrillation documented [facility] SystemEvaluation note* Diagnosis Paroxysmal atrial fibrillation (CMS-HCC) Atrial fibrillation [facility] Diagnosis Primary hypertension- Primary Unspecified essential hypertension 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 (CMS-HCC) [facility] Diagnosis Paroxysmal atrial fibrillation (CMS-HCC)- Primary Atrial fibrillation Benign hypertension Essential hypertension, benign [facility] Narrative - Reported* Type Description [...] replacement 12/16/2021 Hospitalization History SEE SURGICAL HX [employer] Other Hospital course Narrative No data available for this section [facility] Hospital Discharge instructions* Attachments The following attachments cannot be sent through Care Everywhere. * [facility] SMOKING CESSATION LINKS [facility] No data available for this section [facility] InstructionsNot on filedocumented in this encounter [...] this section [facility] reason for referral (narrative)* Diagnostic Procedure Only (Routine) - Pending Review Specialty Diagnoses / Procedures Referred By Juan wren Referred To Contact [facility] Diagnoses Encounter for screening mammogram for malignant neoplasm of breast Procedures SHANE SCREENING W YAW SCREENING DIGITAL BREAST TOMOSYNTHESIS BI SCREENING MAMMOGRAPHY BI 2-VIEW BREAST INC Andrew Miguel MD [facility] [address] [place] [address] Referral ID Status Reason Start Date Expiration Date Visits Requested Visits Authorized [id number] Pending Review Auto-Generat ed Referral 09/26/2021 10/26/2022 1 1 [facility] for referral (narrative)* Diagnostic Procedure Only (Routine) - Pending Review Specialty Diagnoses / Procedures Referred By Juan wren Referred To Contact [facility] Diagnoses Encounter for screening mammogram for malignant neoplasm of breast Procedures SHANE SCREENING W YAW SCREENING DIGITAL BREAST TOMOSYNTHESIS BI SCREENING MAMMOGRAPHY BI 2-VIEW BREAST INC Andrew Miguel MD [facility] [place] [address] [place] [address] Referral ID Status Reason Start Date Expiration Date Visits Requested Visits Authorized [id number] Pending Review Auto-Generat ed Referral 09/11/2022 10/11/2023 1 [facility] (Routine) Specialty Diagnoses / Procedures Referred By Contac t Referred To Contact [address] [address] Referral ID Status Reason Start Date Expiration Date Visits Re quested Visits Authorized [facility] for referral (narrative)* Consultation (Routine) - Patient to Arrange Specialty Diagnoses / Procedures Referred By Contac t Referred To Contact Physical Therapy Diagnoses Right hip pain EtienneneryJhoanaa Deric [address] [place] [address] Referral ID Status Reason Start Date Expiration Date V isits Requested Visits Authorized [id number] Patient to Arrange 08/20/2023 09/13/2024 1 1 Scheduling Instructions . * Diagnostic X-Ray (Routine) - New Request Specialty Diagnoses / Procedures Referred By Contac t Referred To Contact Diagnoses Right hip pain Procedures XR HIP WITH PELVIS RIGHT Divine Dougherty [address] [place] [address] Referral ID Status Reason Start Date Expiration Date V isits Requested Visits Authorized [id number] New Request 08/20/2023 09/13/2024 1 1 [facility] for referral (narrative)* Diagnostic Procedure Only (Routine) - Pending Review Specialty Diagnoses / Procedures Referred By Contac t Referred To Contact [facility] Diagnoses Encounter for screening mammogram for malignant neoplasm of breast Procedures SHANE SCREENING W YAW SCREENING DIGITAL BREAST TOMOSYNTHESIS BI SCREENING MAMMOGRAPHY BI 2-VIEW BREAST INC Andrew Miguel MD [address] [place] [address] [place] [address] [facility] [address] [place] [address] Referral ID Status Reason Start Date Expiration Date Visits Requested Visits Authorized [id number] Pending Review Auto-Generat ed Referral 09/17/2023 10/16/2024 1 1 [facility] for visit Narrative* Diagnostic X-Ray (Routine) - New Request Specialty Diagnoses / Procedures Referred By Juan t Referred To Contact Diagnoses Hx of total hip arthroplasty, right Procedures XR HIP WITH PELVIS RIGHT Paula Barrera, DRAWER HARDWARE WORKER-COLOR SEPARATION PHOTOGRAPHER [address] [place] [address] Phone: tel: fax: Referral ID Status Reason Start Date Expiration Date V isits Requested Visits Authorized [id number] New Request 07/12/2024 08/06/2025 1 1 [facility] Summary Purpose Family History Relationship Condition Age at Onset Recorded Date/T nilam father Unknown mother Unknown Advance Directives Documents on File Type Date Recorded Patient Shift Mgr Expl anation Advance Directives/Living Will 06/25/2023 9:17 AM DURABLE POWER OF GUT DROPPER FOR HEALTHCARE 06/25/23 Advance Directives/Living Will 06/25/2023 [...] Documents on File Type Date Recorded Patient Shift Mgr Expl anation Living Will 05/21/2020 9:37 AM Durable Power of Aquatics Lifeguard 05/21/2020 9:27 AM Durable Power of Aquatics Lifeguard 05/16/2020 6:05 AM Living Will 05/16/2020 6:04 AM Healthcare Agents on File Name Relationship Healthcare Agent [facility] Communication David Frailey Spouse Health Care Agent Samantha Inman Daughter [...] HIP WITH PELVIS RIGHT Miko Ohara MD [address] [place] [id number] Referral ID Status Reason Start Date Expiration Date V isits Requested Visits Authorized [id number] New Request 11/16/2023 12/10/2024 1 1 Specialty Diagnoses / Procedures Referred By Contac t Referred To Contact Diagnoses Tear of gluteus minimus tendon, right, initial encounter Procedures XR HIP WITH PELVIS RIGHT Divine Dougherty [address] [place] [address] Referral ID Status Reason Start Date Expiration Date V isits Requested Visits Authorized [id number] New Request 07/20/2023 08/13/2024 1 1 Specialty Diagnoses / Procedures Referred By Contac t Referred To Contact Diagnoses Pain in prosthetic joint, initial encounter Procedures MRI HIP RIGHT WITHOUT CONTRAST [place] MRI LOWER EXTREM JT, W/O CONTRAST Miko Ohara MD [address] [place] [address] Referral ID Status Reason Start Date Expiration Date V isits Requested Visits Authorized [id number] New Request 05/14/2023 06/07/2024 1 1 Specialty Diagnoses / Procedures Referred By Contac t Referred To Contact Diagnoses Pain in prosthetic joint, initial encounter Procedures COBALT AND CHROMIUM,WB Miko Ohara MD [address] [place] [address] Referral ID Status Reason Start Date Expiration Date V isits Requested Visits Authorized [id number] New Request 05/14/2023 06/07/2024 1 1 Specialty Diagnoses / Procedures Referred By Contac t Referred To Contact Diagnoses Primary osteoarthritis of right hip Procedures XR HIP WITH PELVIS RIGHT Miko Ohara MD [address] [place] [address] Referral ID Status Reason Start Date Expiration Date V isits Requested Visits Authorized [id number] New Request 05/06/2023 05/30/2024 1 1 Reason *FU 11/12 Jason office Diagnosis 1 Frequent UTI (N39.0) Referral [facility] Referring Provider First Name Elliot Referring Provider Last Name Raudel Referring Provider Specialty Family [facility] Referred Organization [facility] Referred Provider ALFREDA MILLER Referred Address [address] [place], [place],[address] Referred Provider Specialty Urology Referral Priority Routine [...] section and content) DATE CREATED AUTHOR 10/28/2017 [facility] DATE CREATED AUTHOR AUTHOR'S ORGANIZ ATION 03/21/2020 [facility] DATE CREATED AUTHOR AUTHOR'S ORGANIZ ATION 09/13/2021 [facility] dical Specialist DATE CREATED AUTHOR AUTHOR'S ORGANIZ ATION 06/11/2022 [facility] DATE CREATED AUTHOR AUTHOR'S ORGANIZ ATION 11/18/2022 [facility] DATE CREATED AUTHOR AUTHOR'S ORGANIZ ATION 05/20/2023 [facility] DATE CREATED AUTHOR AUTHOR'S ORGANIZ ATION 09/19/2023 [facility] DATE CREATED AUTHOR AUTHOR'S ORGANIZ ATION 10/01/2023 [facility] DATE CREATED AUTHOR AUTHOR'S ORGANIZ ATION 04/08/[address] [facility] DATE CREATED AUTHOR AUTHOR'S ORGANIZ ATION 06/24/2024 [facility] DATE CREATED AUTHOR AUTHOR'S ORGANIZ ATION 06/26/2024 [facility] DATE CREATED AUTHOR AUTHOR'S ORGANIZ ATION 06/30/2024 [facility] DATE CREATED AUTHOR AUTHOR'S ORGANIZ ATION 07/17/2024 [facility] [employer] Comments (unrecognize d section and content) In the event this informatio n is protected by the Federal Confidentiality of Alcohol and Drug Abuse Patient Records regulations: The Federal rules restrict any use of the information to criminally investigate or prosecute any alcohol or drug abuse patient.[facility] Hospital[facility] the event this information is protected by the Federal Confidentiality of Alcohol and Drug Abuse Patient Records regulations: The Federal rules restrict any use of the information to criminally investigate or prosecute any alcohol or drug abuse patient.[facility] Hospital[facility] the event this information is protected by the Federal Confidentiality of Alcohol and Drug Abuse Patient Records regulations: The Federal rules restrict any use of the information to criminally investigate or prosecute any alcohol or drug abuse patient.[facility] Hospital[facility] the event this information is protected by the Federal Confidentiality of Alcohol and Drug Abuse Patient Records regulations: The Federal rules restrict any use of the information to criminally investigate or prosecute any alcohol or drug abuse patient.[facility] Reason for Visit (unrecogniz ed section and content) Reason Comments Radiology Mammogram Reason Comments Lab Orders Reason Comments Orders Specialty Diagnoses / Procedures Referred By Juan t Referred To Contact Diagnoses Primary osteoarthritis of right hip Procedures XR HIP WITH PELVIS RIGHT Miko Ohara MD [address] [place] [address] Referral ID Status Reason Start Date Expiration Date V isits Requested Visits Authorized [id number] New Request 05/06/2023 05/30/2024 1 1 Reason Comments Pain Reason Comments MRI Results Specialty Diagnoses / Procedures Referred By Juan t Referred To Contact Diagnoses Tear of rotator cuff of right hip, initial encounter 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, initial encounter Tear of rotator cuff of right hip, initial encounter [S76.011A] 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, initial encounter [T84.090A] Procedures AZ PELVIS/HIP JOINT SURGERY UNLISTED [place] REVISE TOTAL HIP REPLACEMENT GLUTEUS MEDIUS TENDON REPAIR REVISION ARTHROPLASTY HIP BOTH ACETABULAR & FEMORAL COMPONENTS Miko Ohara MD [address] [place] [address] Referral ID Status Reason Start Date Expiration Date Visits Re quested Visits Authorized [id number] 06/19/2023 1 1 Reason Comments Post Op Visit Specialty Diagnoses / Procedures Referred By Juan t Referred To Contact Diagnoses Tear of gluteus minimus tendon, right, initial encounter Procedures XR HIP WITH PELVIS RIGHT Ela Divine Leos [address] [place] [address] Referral ID Status Reason Start Date Expiration Date V isits Requested Visits Authorized [id number] New Request 07/20/2023 08/13/2024 1 1 Reason Comments Follow-up Specialty Diagnoses / Procedures Referred By Contac t Referred To Contact Diagnoses Right hip pain Procedures XR HIP WITH PELVIS RIGHT Divine Dougherty [address] [place] [address] Referral ID Status Reason Start Date Expiration Date V isits Requested Visits Authorized [id number] New Request 08/20/2023 09/13/2024 1 1 Reason Comments Yearly Exam With Mammogram Reason Comments Pain Specialty Diagnoses / Procedures Referred By Juan wren Referred To Contact Diagnoses Hx of total hip arthroplasty, right Procedures XR HIP WITH PELVIS RIGHT Miko Ohara MD [address] [facility] [place] [address] Referral ID Status Reason Start Date Expiration Date V isits Requested Visits Authorized [id number] New Request 11/16/2023 12/10/2024 1 1 Reason Comments Follow-up est pt concerns of a fib per smart watch wants seen sooner. sched w/pt pt will arrive at 11:30 Reason Onset Date Comments Med Refill 10/19/2023 Reason Onset Date Comments Pre op clearance 06/19/2023 Reason Comments Follow-up Hypertension Leg Swelling Reason Comments Med Refill Reason Comments Follow-up Reason Onset Date Comments Med Refill 07/27/2024 Care Teams (unrecognized sec tion and content) Wood Bucker Relationship Specialty Start Date End Date Elliot Starks MD [address] [place] [address] PCP - General Family Practice 11/26/15 Wood Bucker Relationship Specialty Start Date End Date Elliot Starks MD [address] [place] [address] PCP - General Family Practice 11/26/15 Wood Bucker Relationship Specialty Start Date End Date Elliot Starks MD [address] [place] [address] PCP - General Family Medicine 11/26/15 Team Status: Inactive Member Role Status Dates Elliot Starks MD Attending Provider Active Wood Bucker Relationship Specialty Start Date End Date Elliot Starks MD [address] [place] [address] PCP - General Family Medicine 05/11/23 Wood Bucker Relationship Specialty Start Date End Date Elliot Starks MD [address] [place] [address] PCP - General Family Medicine 05/11/23 Wood Bucker Relationship Specialty Start Date End Date Elliot Starks MD [address] [place] [address] [place] [address] PCP - General Family Medicine 05/11/23 Wood Bucker Relationship Specialty Start Date End Date Elliot Starks MD [address] [place] [address] [place] [address] PCP - General Family Medicine 05/11/23 Wood Bucker Relationship Specialty Start Date End Date Elliot Starks MD [address] [place] [address] [place] [address] PCP - General Family Medicine 05/11/23 Wood Bucker Relationship Specialty Start Date End Date Elliot Starks MD [address] [place] [address] [place] [address] PCP - General Family Medicine 05/11/23 Wood Bucker Relationship Specialty Start Date End Date Elliot Starks MD [address] [place] [address] [place] [address] PCP - General Family Medicine 05/11/23 Wood Bucker Relationship Specialty Start Date End Date Elliot Starks MD [address] [place] [address] [place] [address] PCP - General Family Medicine 05/11/23 Wood Bucker Relationship Specialty Start Date End Date Elliot Starks MD [address] [place] [address] PCP - General Family Medicine 11/26/15 Team [...] May 09, 2024 End: May 09, 2024 Wood Bucker Relationship Specialty Start Date End Date Elliot Starks MD [address] [place] [address] [id number] PCP - General 03/17/17 Wood Bucker Relationship Specialty Start Date End Date Elliot Starks MD [address] [place] [address] PCP - General 07/15/23 Wood Bucker Relationship Specialty Start Date End Date Elliot Starks MD [address] [place] [address] [id number] PCP - General 03/17/17 Wood Bucker Relationship Specialty Start Date End Date Elliot Starks MD [address] [place] [address] PCP - General 03/17/17 Wood Bucker Relationship Specialty Start Date End Date Elliot Starks MD [address] [place] [address] PCP - General 07/15/23 Wood Bucker Relationship Specialty Start Date End Date Elliot Starks MD [address] [place] [address] PCP - General 07/15/23 Wood Bucker Relationship Specialty Start Date End Date Elliot Starks MD [address] [place] [address] PCP - General 07/15/23 Team Status: Active Member Role Status Dates Elliot Starks MD Primary Care Provide r, Attending Provider Active Start: May 11, 2024 Team Status: Inactive Member Role Status Dates Elliot Starks MD Primary Care Provider Active Start: June 21, 2024 End: June 21, 2024 Chinedu Farley DO Attending Provider Active Sta rt: June 21, 2024 End: June 21, 2024 Wood Bucker Relationship Specialty [place] [address] [place] [address] PCP - General Family Medicine 05/11/23 Wood Bucker Relationship Specialty [place] [address] [place] [address] PCP - General Family Medicine 05/11/23 Wood Bucker Relationship Specialty [place] [address] [place] [address] PCP - General 07/15/23 Wood Bucker Relationship Specialty Start Date End Date Elliot Starks MD [address] [place] [address] PCP - General 07/15/23 Wood Bucker Relationship Specialty Start Date End Date Elliot Starks MD [address] [place] [address] PCP - General 07/15/23 Goals (unrecognized section and content) Goals may [...] Post-op/Post-Proc 0009 ($$New Bag$$ - Provider: Aidee Field, RICARDO)0109 (Stopped - Provider: Aidee Field RN) Continuous Medication Order 07/06/2023 07/07/2023 2023 Lactated ringers IV solution (CANCELED) Intravenous, at 75 mL/hr, CONTINUOUS, Starting on Thu07/07/23 at 1015, Until Thu07/07/23 at 1609, Pre-op/Pre-Proc 1043 ($$New Bag$$ - Provider: Chelsea Bledsoe RN)1514 ($$New Bag$$ - Provider: Damián Saenz DRAWER HARDWARE WORKER-AUTO BODY REPAIR ESTIMATOR)1647 (Stopped - Provider: Aidee Field RN) Sodium [...] Field RN)0633 (Rate/Dose Verify - Provider: Aidee iFeld, RICARDO) PRN Medication Order 07/06/2023 07/07/2023 2023 acetaminophen [...] 2 g, Intravenous, Administer over 15 Minutes, COMPOSER TEACHING ARTIST TO PROCEDURE, 1 dose, Starting on Thu07/07/23 at 1003, Until Thu07/07/23 at 1409, Other, Pre-operative antibiotic, Pre-op/Pre-Proc 1354 (Given - Provider: Melchor Holcomb APRN-[facility]) HYDROmorphone (DILAUDID) injection 0.5 mg [...] NEEDED, Starting on Thu07/07/23 at 1637, Until 3/6/24 at 1920, constipation, Post-op/Post-Proc Sodium chloride 0.9 [...] BE BASED ON THE PRIMARY CLINICAL RECORDS. [employer] [facility]. provides no warranty or guarantee of the accuracy or completeness of information in this document.
[2024-08-22 06:49] VITALS: BP 118/69; PULSE 64; TEMP 36.8; O2SAT 96
[2024-08-22 07:36] VITALS: BP 148/65; PULSE 62; O2SAT 93
[2024-08-22 07:38] VITALS: BP 158/67; PULSE 64; O2SAT 97
[2024-08-22] MEDS: BUPIVACAINE HCL 0.25% PF 25 MG/10 ML VIAL INJ (07:40)
[2024-08-22] MEDS: 0.9 % SODIUM CHLORIDE 10 ML SYRINGE - SALINE FLUSH INJ (07:40)
--- NOTE | 2024-08-22 07:40 | P.ON_ITS ---
Date of procedure: 08/22/24 Pre-op diagnosis: Pain due to lumbar stenosis with neurogenic claudication Post-op diagnosis: same as pre-op Procedure: Procedure: Right L3-4, L4-5 transforaminal epidural steroid injection Medications: Bupivacaine 0.25% 2cc, lidocaine 2% 1cc, dexamethasone 10mg The patient was seen and examined in the preoperative holding area.? Informed consent was obtained and placed on the chart.? Patient was brought to the medical procedure unit and placed in the prone position where a timeout was completed verifying the correct patient, procedure site, position, and planned special equipment using sterile aseptic technique.? Under direct fluoroscopic visualization a 25-gauge Quincke tipped spinal needle was advanced to the designated neural foramen where contrast dye was injected to show adequate spread.? The needle was inserted at level right L3-4. There was no evidence of vascular or adverse uptake.? Epidural spread was appreciated.? The above- mentioned injectate was then placed in a 1.5 mL aliquot preceded by negative aspiration.? The needle was removed. The needle was inserted and the procedure repeated at level right L4-5.? The surgery site was covered.? Patient was taken to the postprocedural recovery area and monitored for an appropriate length of time before found suitable for discharge in the accompaniment of a responsible adult. Anesthesia: Local Surgeon: Daisy Liz Pathology: none sent Condition: stable Disposition: no change
[2024-08-22] MEDS: IOHEXOL 240 MG/ML - 10 ML VIAL 24 MG INJ (07:41)
[2024-08-22] MEDS: LIDOCAINE HCL 2% 400 MG/20 ML MDV 4 ML INJ (07:41)
[2024-08-22] MEDS: DEXAMETHASONE SOD PHOS 10 MG/ML VIAL INJ (07:41)
== END 2024-08-22 07:43 | disposition home or self-care (01) ==
LOC: SURGOUT 06:45
PROVIDERS: PCP Family Medicine; Visit Provider Anesthesiology
DX: M48.062 Spinal stenosis, lumbar region with neurogenic claudication (principal); M54.50 Low back pain, unspecified
CPT/HCPCS: 64483; 64484; J0665; J1100; Q9966

== ENCOUNTER 2024-09-01 07:39 | Outpatient (OUT) | payer MEDICARE, SELFPAY ==
--- NOTE | 2024-09-01 07:46 | PM.CN ---
Consult Note: HPI Data of Consult Patient: known to practice within the last 3 years Requesting Physician: Larissa Turner NP Primary Care Provider: Marine Glass MD Consult Narrative Reason for consult: chronic back pain Narrative: Bettie Burns a pleasant 79 year old female presents for evaluation of chronic low back pain. Longstanding hx of low back and SIJ pain secondary to lumbar spondylosis, lumbar DDD, and sacroilitis. Pain unresponsive to >6 weeks of PT and provider guided HEP, heat, ice, tylenol, and she cannot take NSAIDs as she is on eliquis. denies falls or injury. Pain today 2/10 increasing to 2/10 with standing, walking, pushing, pulling, activity, and sleep. Pt currently utilizing mckenna ASA and tylenol PRN, recently trialed flexeril but developed rash and hives. TEJA 30% with moderate to severe pain impacting ADLs, sitting, standing, walking, sleep, social life, and travel. Continues to f/u with orthopedics post right abductor hip repair 1 year ago. recently underwent lumbar MRI which is consistent with additional multilevel stenosis, lumbar DDD, and lumbar spondylosis. on 08/22/24 underwent right L3-4 L4-5 TFESI with >80% improvement ongoing cc:: CC: Larissa Turner NP Review of Systems ROS Status of ROS 10 or more systems reviewed and unremarkable except as noted in history and below [facility] Medical History (Updated 07/14/24 @ 08:45 by Larissa Turner NP) Neck pain ?M54.2 - Cervicalgia (ICD-10) Upper back pain ?M54.9 - Dorsalgia, unspecified (ICD-10) Low back pain ?M54.50 - Low back pain, unspecified (ICD-10) Osteoarthritis ?M19.90 - Unspecified osteoarthritis, unspecified site (ICD-10) H/O malignant neoplasm of breast ?Z85.3 - Personal history of malignant neoplasm of breast (ICD-10) Hearing deficit ?H91.90 - Unspecified hearing loss, unspecified ear (ICD-10) Former smoker ?Z87.891 - Personal history of nicotine dependence (ICD-10) Hypertension ?I10 - Essential (primary) hypertension (ICD-10) Atrial fibrillation ?I48.91 - Unspecified atrial fibrillation (ICD-10) Cataract ?H26.9 - Unspecified cataract (ICD-10) Surgical History Status post hip surgery ?Z98.890 - Other specified postprocedural states (ICD-10) H/O total hip arthroplasty ?Z96.649 - Presence of unspecified artificial hip joint (ICD-10) H/O cardiac catheterization ?Z98.890 - Other specified postprocedural states (ICD-10) History of cholecystectomy ?Z90.49 - Acquired absence of other specified parts of digestive tract (ICD-10) H/O: hysterectomy ?Z90.710 - Acquired absence of both cervix and uterus (ICD-10) H/O foot surgery ?Z98.890 - Other specified postprocedural states (ICD-10) H/O eye surgery ?Z98.890 - Other specified postprocedural states (ICD-10) H/O shoulder surgery ?Z98.890 - Other specified postprocedural states (ICD-10) H/O breast surgery ?Z98.890 - Other specified postprocedural states (ICD-10) Social History Smoking status: Never smoker Meds Home Medications and Allergies Home Medications ?Medication ?Instructions ?Recorded ?Confirmed ?Type apixaban 5 mg tablet (Eliquis) 5 mg PO BID 10/28/22 08/22/24 History atenolol 50 mg tablet 75 mg PO DAILY 10/28/22 08/22/24 History hydrochlorothiazide 25 mg tablet 25 mg PO DAILY 10/28/22 08/22/24 History lisinopril 20 mg tablet 20 mg PO DAILY 10/28/22 08/22/24 History neuveria vitamin DAILY 10/28/22 History trospium 20 mg tablet 20 mg PO Q12H 04/02/23 08/22/24 History aspirin 500 mg tablet (Mckenna 500 mg PO DAILY PRN pain 11/04/23 08/22/24 History Advanced) cyclosporine 0.05 % eye drops in a drp ophthalmic (eye) 11/04/23 History dropperette omeprazole 40 mg capsule,delayed 40 mg PO DAILY 11/04/23 08/22/24 History release vit C 250 mg-vit E 90 mg-zinc 40 1 tab PO BID 11/04/23 08/22/24 History mg-copper 1 ua-crilkv-djasgx capsule (PreserVision AREDS-2) flecainide 50 mg tablet mg 12/14/23 History potassium chloride 10 mEq meq PO 12/14/23 History tablet,extended release Allergies Allergy/AdvReac Type Severity Reaction Status Date / Time acetaminophen (From Vicodin) Allergy Severe itching Verified 08/22/24 06:57 hydrocodone (From Vicodin) Allergy Severe itching Verified 08/22/24 06:57 codeine Allergy Unknown Hives Verified 08/22/24 06:57 levofloxacin (From Levaquin) Allergy Unknown uticaria Verified 08/22/24 06:57 morphine Allergy Unknown uticaria Verified 08/22/24 06:57 Penicillins Allergy Unknown uticaria Verified 08/22/24 06:57 tramadol Allergy Unknown uticaria Verified 08/22/24 06:57 cyclobenzaprine Allergy Rash Verified 08/22/24 06:58 Exam Constitutional Documenting provider has reviewed patient's vital signs: yes Common normals: no apparent distress, oriented x3, healthy appearing, alert and well nourished General appearance: cooperative HENSC Common normals: normocephalic, hearing grossly normal bilaterally and moist oral mucous membranes Head and scalp: normocephalic Eye Common normals: PERRL Pupil: PERRL Neck & C-Spine Common normals: full ROM General: normal visual inspection Chest Common normals: inspection of chest normal Respiratory Common normals: normal respiratory effort, no retractions and no use of accessory muscles Back & Pelvis Lumbar spine/lower back: straight leg raise negative bilaterally; no pain with ROM and no lumbar spinal tenderness Sacroiliac joints: SI joints normal Other: negative facet loading sensation intact BLE strength 5/5 in BLE Neuro Common normals: oriented x3 Sensorium/orientation: alert Psych Common normals: mental status grossly normal, thought process normal, cooperative, affect normal, speech normal and activity/motor behavior normal Speech: normal speech Thought process: normal thought process Results Additional Findings Additional findings: If on a controlled substance or opioids, I have checked an [place]AR[place] report on this patient and there are no aberrancies noted in the prescribing history.??If on a controlled substance or opioid a drug screen was completed and reviewed within the last year, and if there has not been a drug screen completed we ordered one today to monitor higher risk, state monitored pain medication use. As part of providing excellent, safe, comprehensive care, the following was completed at our patient's visit: 1. A medication reconciliation and review to ensure accurate knowledge of current/active medications, including asking our patients to inform us about any oplt-mvh-gvmsyli medications or herbal remedies/nutritional supplements/alternative remedies. 2. A review to specifically ensure our patients have had annual screening for screening for depression, screening for tobacco use, and screening for unhealthy alcohol use. For concerning screenings had a discussion with the patient, provided patient education, and recommended follow-up with primary care provider when appropriate. If patient noted with a risk of falling, they received education on strength, gait, and balance training to prevent future risk of falling. Portions of this note may have been carried over from the previous visit and updated as appropriate. Please note this office utilizes paper charting in addition to the electronic medical record. A list of current medications, vitals, and PMH is available there as the clinical staff outside of myself do not have access to [employer] charting during the clinic day operations. As part of providing quality comprehensive care the current medications, vitals, and PMH were reviewed in the paper chart. Assessment and Plan Assessment and Plan (1) Lumbar stenosis with neurogenic claudication: (2) Sacroiliac joint dysfunction: (3) Myofascial pain: (4) Sacroiliitis: (5) Lumbar spondylosis: Plan start methocarbamol 500mg BID PRN pain/spasms continue HEP as tolerated f/u 3 months, sooner if needed
== END 2024-09-01 07:40 | disposition home or self-care (01) ==
PROVIDERS: PCP Family Medicine; Visit Provider Nurse Practitioner
DX: M48.062 Spinal stenosis, lumbar region with neurogenic claudication (principal); M53.3 Sacrococcygeal disorders, not elsewhere classified; M79.18 Myalgia, other site; M46.1 Sacroiliitis, not elsewhere classified; M47.816 Spondylosis without myelopathy or radiculopathy, lumbar region
CPT/HCPCS: G0463

== ENCOUNTER 2024-10-26 08:39 | Outpatient (OUT) | payer MEDICARE, SELFPAY ==
--- OUTSIDE RECORDS SUMMARY | 2024-10-26 08:41 | XMS_ITS | Encounter Summary ---
Author Organization [facility] Address [address] [place] [address] Care Team Providers Care Trumpet Teacher Name Role Phone Marine Glass MD Primary Care Provider [phone] Encounter Details Date Type Department Care Team (Late st Contact Info) Description 09/26/2022 Abstract [facility] [address] [place] [address] Melchor Rivera DO [address] [place] [address] Social History Tobacco Use Types Packs/Day Years Used Date Smoking Tobacco: Former Cigarettes Tobacco Cessation:Counseling Given: Not Answered Alcohol Use Standard Drinks/Week Comments Yes 0 (1 standard drink = 0.6 oz pure alcohol) Alcohol: 1-2 drinks occasionally. Caffeine: soda Comments Unknown Sex and Gender Information Value Date Recorded Sex Assigned at Female 09/23/2022 8:37 AM EDT Legal Sex Female 6:46 PM EDT Gender Identity Female 09/23/2022 8:37 AM EDT Sexual Orientation Not on file documented as of this encounter Plan of Treatment Not on file documented as of this encounter Visit Diagnoses Not on filedocumented in this encounter Care Teams Trumpet Teacher Relationship Specialty Start Date End Date Marine Glass MD PCP - General Family Medicine 09/26/22 documented as of this encounter
--- OUTSIDE RECORDS SUMMARY | 2024-10-26 08:41 | XMS_ITS | Clinical Summary ---
Author Organization [facility] Address [address] [place] [address] Care Team Providers Care Color Tester Name Role Phone Marine Glass MD Primary Care Provider [phone] Allergies Active Allergy Reactions Criticality Noted Date Comments *Adhesive Tape Medium 07/03/2022 Other reaction(s): Blister Cephalexin Nausea Only,Dry Mouth,Flushing 07/09/2023 Hydrocodone-Acetaminoph en Itching,Nausea Only,Rash Medium 03/19/2017 Other Reaction(s): Unknown Latex 06/19/2023 Levofloxacin Itching,Nausea Only,Rash Medium 03/19/2017 Other Reaction(s): Unknown Morphine 05/14/2023 Oxycodone 05/14/2023 Penicillins 05/14/2023 Tramadol 05/14/2023 Medications Lisinopril 20 MG tablet Take 1 tablet by mouth daily. Active Atenolol 50 MG tablet Take 1.5 tablets by mouth daily. am Active apixaban 2.5 MG tablet Take 2 tablets by mouth every 12 hours. Active OMEPRAZOLE PO Take 20 mg by mouth daily. am Active temazepam 15 MG capsule Take 2 capsules by mouth At bedtime as needed for Sleep. Active hydroCHLOROthiazid e 25 MG tablet Take 1 tablet by mouth daily. Active TROSPIUM CHLORIDE PO Take 20 mg by mouth 2 times daily (take before meals). Active baclofen 10 MG tablet Take 1 tablet by mouth 3 times daily. NEEDED Active Multiple Vitamin (multivitamin) capsule Take 1 capsule by mouth daily. Active NON-FORMULARY Med Name:Neuveria vitamin 1 qd Active ESTRACE VAGINAL 0.1 MG/GM cream See Instructions, 42.5 gm, Refill(s) 3, apply pea size amount to urethra/inner vagina 3x/week x 1 month, then 2x/week for maintainence, [facility] #[id number], 165, cm, 02/11/23 10:41:00 EDT, Height/Length Dosing, 77.5, kg, 02/11/23 10:41:00 EDT, Weight Dosing 3 Active potassium chloride 10 MEQ Tab CR tablet ER Take 1 tablet by mouth daily. Active SUMAtriptan 25 MG tablet as needed. Active Acetaminophen 325 MG tablet Take 2 tablets by mouth every 4 hours as needed for Mild Pain. 50 tablet 1 4 Active oxyCODONE 5 MG tabletIndications: Acute postoperative pain of right hip Take 1-2 tabs po q 4-6 hours prn pain. Wean as tolerated. 30 tablet 4 Active Docusate 100 MG capsule Take 1 capsule by mouth 2 times daily. 60 capsule 4 Active Flecainide 50 MG tablet Take 1 tablet by mouth Twice daily. 4 Active Active Problems Problem Noted Date Diagnosed Date Status post revision of total hip 2023 Social History Tobacco Use Types Packs/Day Years Used Date Smoking Tobacco: Never Smokeless Tobacco: Never Tobacco Cessation:Counseling Given: Not Answered Alcohol Use Standard Drinks/Week Comments Yes 0 (1 standard drink = 0.6 oz pur e alcohol) social [facility] Utilities Answer Date Recorded In the past 12 months has th e Heal[employer], gas, oil, or water uSamp threatened to shut off services in your home? No 07/07/2023 Hunger Vital Sign Answer Date Recorded Within the past 12 months, y ou worried that your food would run out before you got the money to buy more. Never true 07/07/19 24 Within the past 12 months, t he food you bought just didn't last and you didn't have money to get more. Never true 07/07/2023 PRAPARE - Transportation Answer Date Re corded In the past 12 months, has l ack of transportation kept you from medical appointments or from getting medications? No 09/2023 In the past 12 months, has l ack of transportation kept you from meetings, work, or from getting things needed for daily living? No 07/07/2023 Housing Stability Vital Sign Answer Abraham e Recorded In the last 12 months, was t here a time when you were not able to pay the mortgage or rent on time? No 07/07/2023 In the last 12 months, how many places have you lived? 1 07/07/2023 In the last 12 months, was t here a time when you did not have a steady place to sleep or slept in a jail (including now)? No 07/07/2023 Comments Unknown Sex and Gender Information Value Date Recorded Sex Assigned at Not on file Legal Sex Female 9:52 AM EST Gender Identity Not on file Sexual Orientation Not on file Last Filed Vital Signs Vital Sign Reading Time Taken Comments Blood Pressure 110/53 2023 3:34 PM EST Pulse 80 2023 3:34 PM EST Temperature 36.1 C (97 F) 11/26/2023 2:08 PM EDT Respiratory Rate 16 2023 3:34 PM EST Oxygen Saturation 98% 2023 3:34 PM EST Inhaled Oxygen Concentration - - Weight 76.2 kg (168 lb) 07/14/2024 1:15 PM EDT Height 165.1 cm (5' 5 ) 07/14/2024 1:15 PM EDT Body Mass Index 27.96 07/14/2024 1:15 PM EDT Plan of Treatment Health Maintenance Due Date Last Done Comments DEXA SCAN DISCUSSION 1945 HEPATITIS C VIRUS SCREENING 1945 TETANUS 1945 TDAP (ADULT) 07/07/1966 CERVICAL CANCER SCREENING DISCUSSION 07/07/1968 COLORECTAL CANCER SCREENING DISCUSSION 07/07/1992 ZOSTER (SHINGLES) VACCINE (1 of 2) 07/07/1997 POTASSIUM 07/07/2024 2023, 06/25/2023 COVID-19 VACCINE ( season) 2024 02/08/2024, 02/10/2023, 08/13/2021, Additional history exists MAMMOGRAM SCREENING DISCUSSION 09/29/2024 09/30/2023, 09/27/2022, 09/27/2021, Additional history exists PNEUMOCOCCAL VACCINE SERIES Completed 08/2017, 02/17/2017, 02/05/2017 RSV VACCINE Completed 02/10/2023 INFLUENZA VACCINE Completed 02/08/2024, , 02/01/2022, Additional history exists HEP B VACCINE Aged Out No longer elig ible based on patient's age to complete this topic Medical Devices Implanted Type Area Heater Installer Device Identifier Shelf Expiration Date Model / Serial / Lot Anchors, 5.5 Non Punching - [id number] Implanted:Qty: 1 on 07/07/2023 by Miko Pascual MD at [facility] Right: Hip HIST [employer] 10/31/2026 [id number] / / [id number] Anchors, 5.5 Non Punching - [id number] Implanted:Qty: 3 on 07/07/2023 by Miko Pascual MD at [facility] Right: Hip [employer] 05/03/2027 [id number] / / [id number] Procedures Procedure Name Priority Date/Time Associated Diagnosis Comments BASIC METABOLIC PANEL Today 2023 4:48 AM EST from Last 3 Months or Most Recently Relevant to Health Maintenance Results * (ABNORMAL) BASIC METABOLIC PANEL (2023 4:48 AM EST) Glucose 141(H) 70 - 100 MG/DL [address] Comment: NORMAL <100 mg/dL PREDIABETES 101-126 mg/dL DIABETES 126 mg/dL or higher BUN 30(H) 7 - 20 MG/DL [address] CREATININE SERUM 1.10 0.70 - 1.20 MG/DL [address] SODIUM 134(L) 137 - 145 MMOL/L [address] Potassium 3.8 3.5 - 5.1 MMOL/L [address] CHLORIDE 103 98 - 107 MMOL/L [address] Comment:Please note: Triglyc eride levels of 600mg/dL or higher may positively bias chloride results by approximately 2.1 mmol CARBON DIOXIDE (CO2) 30 22 - 30 MMOL/L [address] ANION GAP 1 MMOL/L [address] CALCIUM 8.7 8.4 - 10.2 MG/DL [address] ESTIMATED GFR, NON AMER 51 ml/min/1. 73sq.m [address] ESTIMATED GFR, 62 ml/min/1. 73sq.m [address] GFR COMMENT Average GFR for 70+ years old = 75. [address] Comment: Chronic Kidney disease, GFR = <60. Kidney failure, GFR = <15. The GFR estimate is not adjusted for extreme body surface area or acute process, nor has it been validated for women or ethnic groups other than and . Blood 2023 4:48 AM EST 2023 5:12 AM EST us Chance Mahoney MD CHEMISTRY ORDERABLES Final Resul t [address] [id number] from Last 3 Months or Most Recently Relevant to Health Maintenance Insurance MEDICARE [employer] PPO Advance Directives For more information, please contact: [phone] (7:30 AM - 6PM [facility], Thursday-Thursday) Documents on File Type Date Recorded Patient Carpet Inspector Finished Expl anation Advance Directives/Living Will 06/25/2023 9:17 AM DURABLE POWER OF AMBULANCE DRIVER FOR HEALTHCARE 06/25/23 Advance Directives/Living Will 06/25/2023 9:13 AM LIVING WILL 06/25/23 * Full Code (Latest Code Status on File) Date Activated Date Inactivated Comments 07/07/2023 3:27 PM Care Teams Color Tester Relationship Specialty Start Date End Date Marine Glass MD PCP - General Family Medicine 05/11/23
--- OUTSIDE RECORDS SUMMARY | 2024-10-26 08:41 | XMS_ITS | Encounter Summary ---
[facility] Address [facility] [id number] [address] [place] [address] Care Team Providers Care Precinct Police Captain Name Role Phone Marine Glass MD Primary Care Provider [phone] Reason for Visit * Reason Comments Med Refill Encounter Details Date Type Department Care Team (Late st Contact Info) Description 03/28/2019 Refill [facility] [address] [place] [phone] Miko Vasquez APRN-CNP [address] [place], [place] [id number] Med Refill Social History Tobacco Use Types Packs/Day Years Used Date Smoking Tobacco: Former Smokeless Tobacco: Never Alcohol Use Standard Drinks/Week Comments Yes 0 (1 standard drink = 0.6 oz pur e alcohol) social Childcare Answer Date Recorded Childcare Unknown 10/05/2018 Employment Answer Date Recorded Employment Unknown 10/05/2018 Comments No Sex and Gender Information Value Date Recorded Sex Assigned at Female 05/09/2018 11:19 AM EST Legal Sex Female 11:36 AM EDT Gender Identity Female 05/09/2018 11:19 AM EST Sexual Orientation Not on file documented as of this encounter Miscellaneous Notes * Telephone Encounter - MEDINA Hernandez - 03/28/2019 12:42 AM EST Patient needs updated LFTs * Telephone Encounter - MEDINA Hernandez - 03/28/2019 12:42 AM EST Will not let me sign states it is going to the wrong pharmacy. documented in this encounter Plan of Treatment Upcoming Encounters Date Type Department Care Team (Late st Contact Info) Description 11/08/2024 9:00 AM EDT Office Visit [facility] [address] [place] [address] Karen Mart APRN-CNP [address] [place] [phone] documented as of this encounter Results * Liver panel (04/07/2019 11:04 AM EST) Alkaline phosphatase 70 39 - 130 U/L 04/07/2019 4:18 PM [facility] AST 23 0 - 41 U/L 04/07/2019 4:18 PM [facility] ALT 14 0 - 31 U/L 04/07/2019 4:18 PM [facility] Total Bilirubin 0.4 0.3 - 1.2 mg/dL 04/07/2019 4:18 PM [facility] Bilirubin, direct 0.1 0.0 - 0.4 mg/dL 04/07/2019 4:18 PM [facility] Albumin 4.0 3.2 - 5.3 g/dL 04/07/2019 4:18 PM [facility] Total Protein 7.3 6.0 - 8.0 g/dL 04/07/2019 4:18 PM [facility] Serum / Unknown 04/07/2019 1 1:04 AM EST 04/07/2019 11:05 AM EST us Divine Bialecki CONTAINER CRANE OPERATOR-ORGANISATION AND METHODS ANALYST LAB BLOOD ORDERABLES Final Result [facility] [address] [place] [address] documented in this encounter Visit Diagnoses Diagnosis Paroxysmal atrial fibrillation (CMS-HCC)- Primary Atrial fibrillation documented in this encounter Additional Health Concerns Infection Onset Date Last Indicated Resolved Time COVID-19 Rule-Out 05/20/2021 05/20/2021 05/20/2021 6:32 PM EST COVID-19 Rule-Out 08/02/2021 08/02/2021 08/03/2021 1:10 AM EDT documented as of this encounter Care Teams Precinct Police Captain Relationship Specialty Start Date End Date Marine Glass MD [address] [place] [address] PCP - General 07/15/23 documented as of this encounter
--- OUTSIDE RECORDS SUMMARY | 2024-10-26 08:41 | XMS_ITS | Encounter Summary ---
Author Organization [facility] Address [facility] [id number] [address] [place] [address] Care Team Providers Care Assistant Site Manager Name Role Phone Marine Glass MD Primary Care Provider [phone] Reason for Visit * Reason Onset Date Comments Results 10/26/2017 Encounter Details Date Type Department Care Team (Late st Contact Info) Description 10/26/2017 Telephone [facility] [address] [place] [address] Jacqueline Sparrow, RICARDO Results Social History Tobacco Use Types Packs/Day Years Used Date Smoking Tobacco: Former Smokeless Tobacco: Never Alcohol Use Standard Drinks/Week Comments Yes 0 (1 standard drink = 0.6 oz pur e alcohol) social Comments No Sex and Gender Information Value Date Recorded Sex Assigned at Female 05/09/2018 11:19 AM EST Legal Sex Female 11:36 AM EDT Gender Identity Female 05/09/2018 11:19 AM EST Sexual Orientation Not on file documented as of this encounter Plan of Treatment Upcoming Encounters Date Type Department Care Team (Late st Contact Info) Description 11/08/2024 9:00 AM EDT Office Visit [facility] [address] [place] [address] Karen Mart, DISBURSING OFFICER-LITHODUPLICATOR OPERATOR [address] [place] [phone] documented as of this encounter Visit Diagnoses Not on filedocumented in this encounter Additional Health Concerns Infection Onset Date Last Indicated Resolved Time COVID-19 Rule-Out 05/20/2021 05/20/2021 05/20/2021 6:32 PM EST COVID-19 Rule-Out 08/02/2021 08/02/2021 08/03/2021 1:10 AM EDT documented as of this encounter Care Teams Assistant Site Manager Relationship Specialty Start Date End Date Marine Glass MD [address] [place] [address] PCP - General 07/15/23 documented as of this encounter
--- OUTSIDE RECORDS SUMMARY | 2024-10-26 08:41 | XMS_ITS | Encounter Summary ---
Author Organization [facility] Address [facility] [id number] [address] [place] [address] Care Team Providers Care Associate Director Of Sales Name Role Phone Marine Glass MD Primary Care Provider [phone] Reason for Visit * Reason Onset Date Comments Med Refill 11/25/2022 Encounter Details Date Type Department Care Team (Late st Contact Info) Description 11/25/2022 Refill [facility] [address] [place] [address] Miquel Fabian, PA-C [id number] [place], [place] [id number] Med Refill Social History Tobacco Use Types Packs/Day Years Used Date Smoking Tobacco: Former Cigarettes Q uit: 05/06/1989 Smokeless Tobacco: Never Comments:quit in 1989 Alcohol Use Standard Drinks/Week Comments Yes 0 (1 standard drink = 0.6 oz pur e alcohol) social PHQ-2 Answer Date Recorded Total Score 0 04/24/2020 Childcare Answer Date Recorded Childcare Unknown 10/05/2018 Employment Answer Date Recorded Employment Unknown 10/05/2018 Purpose - Life Answer Date Recorded Purpose and direction in life Unknown Comments No Sex and Gender Information Value Date Recorded Sex Assigned at Female 05/09/2018 11:19 AM EST Legal Sex Female 11:36 AM EDT Gender Identity Female 05/09/2018 11:19 AM EST Sexual Orientation Not on file documented as of this encounter Miscellaneous Notes * Telephone Encounter - Estela Bueno RN - 11/25/2022 3:18 PM EDT Refill was addressed yesterday [facility]. Pt needs labs done for further refills. documented in this encounter Plan of Treatment Upcoming Encounters Date Type Department Care Team (Late st Contact Info) Description 11/08/2024 9:00 AM EDT Office Visit [facility] [address] [place] [address] Karen Mart, SHAREPOINT TRAINER-HUMAN RESOURCES SUPPORT SPECIALIST [address] [place] [address] documented as of this encounter Visit Diagnoses Not on filedocumented in this encounter Additional Health Concerns Assessment Noted Time PHQ-9 Depression Total Score: 0 04/24/20 20 10:41 AM EST documented as of this encounter Care Teams Associate Director Of Sales Relationship Specialty Start Date End Date Marine Glass MD [address] [place] [address] PCP - General 07/15/23 documented as of this encounter
--- OUTSIDE RECORDS SUMMARY | 2024-10-26 08:41 | XMS_ITS | Encounter Summary ---
Author Organization [facility] Address [facility] [id number] [address] [place] [address] Care Team Providers Care Home Sales Service Professional Name Role Phone Marine Glass MD Primary Care Provider [phone] Encounter Details Date Type Department Care Team (Late st Contact Info) Description 07/29/2021 Orders Only [facility] [address] [place] [address] Jacqueline Sparrow, RICARDO Paroxysmal atrial fibrillation ([facility]-H[facility]) (Primary Dx) Social History Tobacco Use Types Packs/Day Years Used Date Smoking Tobacco: Former Smokeless Tobacco: Never Comments:quit in 1989 Alcohol [...] AM EST Sexual Orientation Not on file COVID-19 Exposure Response Date Recorded In the last 10 days, have yo u been in contact with someone who was confirmed or suspected to have Coronavirus/COVID-19? No / Unsure 07/29/2021 10:31 AM EDT documented as of this encounter Plan of Treatment Upcoming Encounters Date Type Department Care Team (Late st Contact Info) Description 11/08/2024 9:00 AM EDT Office Visit [facility] [address] [place] [address] Karen Mart, VALVE MACHINE OPERATOR-REQUIREMENTS ENGINEER [address] [place] [address] documented as of this encounter Results * (ABNORMAL) CBC auto differential (07/29/2021 11:32 AM EDT) White Blood Cells 7.0 4.0 - 11.0 X10E9/L 07/29/2021 3:[address] [facility] RBC count 4.03 3.80 - 5.20 X10E12/L 07/29/2021 3:[address] [facility] Hemoglobin 11.7 11.7 - 15.5 g/dL 07/29/2021 3:[address] [facility] Hematocrit 35.4 35 - 47 % 07/29/2021 3:[address] [facility] MCV 88 80 - 100 fL 07/29/2021 3:[address] [facility] MCH 29.0 27 - 34 pg 07/29/2021 3:[address] [facility] MCHC 33.0 32 - 36 g/dL 07/29/2021 3:[address] [facility] RDW 15.5(H) 11.5 - 15.0 % 07/29/2021 3:[address] [facility] Platelets 247 150 - 450 X10E9/L 07/29/2021 3:[address] [facility] MPV 7.2 7 - 12 fL 07/29/2021 3:[address] [facility] % neutrophils 56.1 % 07/29/2021 3:[address] [facility] % lymphocytes 29.3 % 07/29/2021 3:[address] [facility] % monocytes 9.9 % 07/29/2021 3:[address] [facility] % eosinophils 3.7 % 07/29/2021 3:[address] [facility] % Basophils 1.0 % 07/29/2021 3:[address] [facility] Neutrophils Absolute (A) 3.9 1.5 - 6.6 X10E9/L 07/29/2021 3:[address] [facility] Lymphocytes Absolute 2.1 1.0 - 3.5 X10E9/L 07/29/2021 3:[address] [facility] Monocytes Absolute 0.7 0 - 0.9 X10E9/L 07/29/2021 3:[address] [facility] Eosinophils Absolute 0.3 0.0 - 0.4 X10E9/L 07/29/2021 3:[address] [facility] Basophils Absolute 0.1 0.0 - 0.2 X10E9/L 07/29/2021 3:[address] [facility] Blood / Unknown 07/29/2021 1 1:32 AM EDT 07/29/2021 11:33 AM EDT us Mike Burgess MD LAB BLOOD ORDERABLES Final Result [facility] [address], [address] [place] [address] * (ABNORMAL) Basic Metabolic Panel (07/29/2021 11:32 AM EDT) Sodium 142 134 - 146 mmol/L 07/29/2021 5:[address] [facility] Potassium, Bld 4.2 3.5 - 5.0 mmol/L 07/29/2021 5:[address] [facility] Chloride 103 98 - 109 mmol/L 07/29/2021 5:[address] [facility] CO2 25 22 - 32 mmol/L 07/29/2021 5:[address] [facility] Anion gap 14 5 - 15 mmol/L 07/29/2021 5:[address] [facility] BUN 27 5 - 27 mg/dL 07/29/2021 5:[address] [facility] Creatinine 1.12(H) 0.40 - 1.00 mg/dL 07/29/2021 5:[address] [facility] Comment:METHOD TRACEABLE TO IDMS STANDARD Glucose 104(H) 65 - 99 mg/dL 07/29/2021 5:[address] [facility] Calcium 9.9 8.5 - 10.5 mg/dL 07/29/2021 5:[address] [facility] GFR MDRD Non Af Amer 48(L) >59 ml/min/1.7 3sq.m 07/29/2021 5:[address] [facility] GFR MDRD Af Amer 58(L) >59 ml/min/1.7 3sq.m 07/29/2021 5:[address] [facility] PLASMA 07/29/2021 11:3 2 AM EDT 07/29/2021 11:33 AM EDT us Mike Burgess MD LAB BLOOD ORDERABLES Final Result [facility] [address], [address] [place] [address] documented in this encounter Visit Diagnoses Diagnosis Paroxysmal atrial fibrillation (CMS-HCC)- Primary Atrial fibrillation documented in this encounter Additional Health Concerns Infection Onset Date Last Indicated Resolved Time COVID-19 Rule-Out 08/02/2021 08/02/2021 08/03/2021 1:10 AM EDT Assessment Noted Time PHQ-9 Depression Total Score: 0 04/24/20 20 10:41 AM EST documented as of this encounter Care Teams Home Sales Service Professional Relationship Specialty Start Date End Date Marine Glass MD [address] [place] [address] PCP - General 07/15/23 documented as of this encounter
--- OUTSIDE RECORDS SUMMARY | 2024-10-26 08:41 | XMS_ITS | Encounter Summary ---
Author Organization [facility] Sys tem Address [facility] [id number] [address] [place] [address] Care Team Providers Care Rolling Attendant Name Role Phone Marine Glass MD Primary Care Provider [phone] Encounter Details Date Type Department Care Team (Late st Contact Info) Description 06/26/2023 Orders Only [facility] [address] [place] [phone] External, Scanning Provider Social History Tobacco Use Types Packs/Day Years Used Date Smoking Tobacco: Former Cigarettes Q uit: 05/06/1989 Smokeless Tobacco: Never Comments:quit in 1989 Alcohol Use Standard Drinks/Week Comments Yes 0 (1 standard drink = 0.6 oz pur e alcohol) social PHQ-2 Answer Date Recorded Total Score 0 04/24/2020 Childcare Answer Date Recorded Childcare Unknown 10/05/2018 Employment Answer Date Recorded Employment Unknown 10/05/2018 Hunger Screening Answer Date Recorded Within the past 12 months we worried whether our food would run out before we got money to buy more. Never True 06/02/2023 Within the past 12 months th e food we bought just didn't last and we didn't have money to get more. Never True 06/02/2023 Purpose - Life Answer Date Recorded Purpose [...] Cardiology [address] [place] [address] Karen Mart, CONSTRUCTION FRAMER-MATERIAL STOCKKEEPER YARD [address] [place] [address] documented as of this encounter Procedures Procedure Name Priority Date/Time Associated Diagnosis Comments MULTIPLE LABS Routine 06/26/2023 4:10 PM EST ECG 12-LEAD Routine 06/26/2023 4:09 PM EST documented in this encounter Results * Multiple labs (06/26/2023 4:10 PM EST) us Scanning Provider External [facility] Final Result Performing Organization Address City/[facility]/ZIP Co de Phone Number MANUALLY TRANSCRIBED RESULTS * ECG 12 lead (06/26/2023 4:09 PM EST) us Scanning Provider External ECG ORDERABLES Final Result Performing Organization Address City/[facility]/ZIP Co de Phone Number MANUALLY TRANSCRIBED RESULTS documented in this encounter Visit Diagnoses Not on filedocumented in this encounter Additional Health Concerns Assessment Noted Time PHQ-9 Depression Total Score: 0 04/24/20 20 10:41 AM EST documented as of this encounter Care Teams Rolling Attendant Relationship Specialty Start Date End Date Marine Glass MD [facility] [place] [address] PCP - General 07/15/23 documented as of this encounter
--- OUTSIDE RECORDS SUMMARY | 2024-10-26 08:41 | XMS_ITS | Encounter Summary ---
Author Organization [facility] Address [facility] [id number] [address] [place] [address] Care Team Providers Care Hotel Administrative Assistant Name Role Phone Marine Glass MD Primary Care Provider [phone] Reason for Visit * Reason Onset Date Comments Med Refill 04/19/2018 Encounter Details Date Type Department Care Team (Late Contact Info) Description 04/19/2018 Refill [facility] [address] [place] [phone] [place] [address] [place] [id number] Social History Tobacco Use Types Packs/Day Years [...] Encounters Date Type Department Care Team (Late Contact Info) Description 11/08/2024 9:00 AM EDT Office Visit [facility] [address] [place] [address] Karen Mart, AUDITOR-COATING TECHNICIAN [address] [place] [address] documented as of this encounter Visit Diagnoses Not on filedocumented in this encounter Additional Health Concerns Infection Onset Date Last Indicated Resolved Time COVID-19 Rule-Out 05/20/2021 05/20/2021 05/20/2021 6:32 PM EST COVID-19 Rule-Out 08/02/2021 08/02/2021 08/03/2021 1:10 AM EDT documented as of this encounter Care Teams Hotel Administrative Assistant Relationship Specialty Start Date End Date Marine Glass MD [facility] [place] [address] PCP - General 07/15/23 documented as of this encounter
--- OUTSIDE RECORDS SUMMARY | 2024-10-26 08:41 | XMS_ITS | Encounter Summary ---
Author Organization [facility] Address [address] [facility] [place] [address] Care Team Providers Care Dog Or Animal Sitter Name Role Phone Marine Glass MD Primary Care Provider [phone] Encounter Details Date Type Department Care Team (Late st Contact Info) Description 10/13/2022 Orders Only [facility] [address] [place] [address] Fabi De Anda DDD (degenerative disc disease), lumbar Social History Tobacco Use Types Packs/Day Years Used Date Smoking Tobacco: Former Cigarettes Alcohol Use Standard Drinks/Week Comments Yes 0 [...] documented as of this encounter Visit Diagnoses Diagnosis DDD (degenerative disc disease), lumbar Degeneration of lumbar or lumbosacral intervertebral disc documented in this encounter Care Teams Dog Or Animal Sitter Relationship Specialty Start Date End Date Marine Glass MD PCP - General Family Medicine 09/26/22 documented as of this encounter
--- OUTSIDE RECORDS SUMMARY | 2024-10-26 08:41 | XMS_ITS | Encounter Summary ---
Author Organization [facility] Address [facility] [id number] [address] [place] [address] Care Team Providers Care Medical Surgery Nurse Name Role Phone Marine Glass MD Primary Care Provider [phone] Encounter Details Date Type Department Care Team (Late st Contact Info) Description 03/31/2022 Orders Only [facility] [address] [place] [address] Jacqueline Sparrow, RICARDO Hypokalemia (Primary Dx) Social History Tobacco Use Types [...] Exposure Response Date Recorded In the last month, have you been in contact with someone who was confirmed or suspected to have Coronavirus / COVID-19? No / Unsure 03/31/2022 9:16 AM EST documented as of this encounter Plan of Treatment Upcoming Encounters Date Type Department Care Team (Late st Contact Info) Description 11/08/2024 9:00 AM EDT Office Visit [facility] [address] [place] [address] Karen Mart, SMOKE AND FLAME SPECIALIST-EQUIPMENT OPERATOR/LABORER [address] [place] [phone] documented as of this encounter Results * Potassium (04/14/2022 11:19 AM EST) Potassium, Bld 3.9 3.5 - 5.0 mmol/L 04/14/2022 3:42 PM EST [facility] PLASMA 04/14/2022 11:1 9 AM EST 04/14/2022 11:20 AM EST Mike Craft MD LAB BLOOD ORDERABLES Final Re sult [facility] [address] [place] [address] documented in this encounter Visit Diagnoses Diagnosis Hypokalemia- Primary Hypopotassemia documented in this encounter Additional Health Concerns Assessment Noted Time PHQ-9 Depression Total Score: 0 04/24/20 20 10:41 AM EST documented as of this encounter Care Teams Medical Surgery Nurse Relationship Specialty Start Date End Date Marine Glass MD [facility] [place] [address] PCP - General 07/15/23 documented as of this encounter
--- OUTSIDE RECORDS SUMMARY | 2024-10-26 08:41 | XMS_ITS | Clinical Summary ---
Author Organization [facility] Address [address] [place] [address] Care Team Providers Care Cardroom Hand Name Role Phone Marine Glass MD Primary Care Provider [phone] Allergies Active Allergy Reactions Criticality Noted Date Comments Baclofen Rash Low 09/12/2022 Codeine Unknown 09/12/2022 Hydrocodone-Acetaminophen Rash Low 09/12/2022 Levofloxacin Rash Low 09/12/2022 Morphine 09/12/2022 Other Reaction(s): Unknown Penicillins Unknown 09/12/2022 Tramadol Rash Low 09/12/2022 Medications Multiple Vitamin (MULTIVITAMIN ADULT PO) Multivitamin Active Melatonin 10 MG capsule as directed Orally Active lisinopril (Prinivil) 20 MG tablet Take 20 mg by mouth in the morning. Active hydroCHLOROthia zide (HYDRODiuril) 25 MG tablet Take 25 mg by mouth in the morning. Active clindamycin (Cleocin) 300 MG capsule every 8 (eight) hours. 2 Active atenolol (Tenormin) 50 MG tablet Take 25 mg by mouth in the morning. 9 Active apixaban (Eliquis) 5 MG tablet Take 5 mg by mouth in the morning and 5 mg before bedtime. Active naproxen sodium (Aleve) 220 MG tablet Take 220 mg by mouth 2 (two) times a day as needed. Active omeprazole OTC (PriLOSEC OTC) 20 MG EC tablet Take 20 mg by mouth in the morning. Take before meals. Active oxybutynin XL (Ditropan-XL) 5 MG 24 hr tablet Take 5 mg by mouth in the morning. Do not crush, chew, or split. . Active temazepam (Restoril) 22.5 MG capsule Take 30 mg by mouth as needed at bedtime for sleep. Active potassium chloride CR (Klor-Con M10) 10 MEQ ER tablet Take 10 mEq by mouth in the morning. Do not crush or chew. . Active ferrous sulfate 325 (65 Fe) MG tablet Take 325 mg by mouth in the morning. Take with meals. 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 DDD (degenerative disc disease), lumbosacral 04/2023 History of right hip replacement 09/12/2022 Internal derangement of left knee 09/12/2022 Internal derangement of right shoulder Lumbago with sciatica, left side 09/12/2022 Lumbago with sciatica, right side 09/12/2022 Sciatica, right side 09/12/2022 Other chronic pain 09/12/2022 Family History Medical History Relation Name Comments Cancer Father Cancer Mother Melanoma Sister Relation Name Status Comments Father Mother Sister Social History Tobacco Use Types Packs/Day Years [...] AM EDT Sexual Orientation Not on file Last Filed Vital Signs Vital Sign Reading Time Taken Comments Blood Pressure 148/86 08/18/2017 12:00 PM EDT Pulse - - Temperature - - Respiratory Rate - - Oxygen Saturation - - Inhaled Oxygen Concentration - - Weight 77.1 kg (170 lb) 09/30/2022 4:09 PM EDT Height 167.6 cm (5' 6 ) 09/30/2022 4:09 PM EDT Body Mass Index 27.44 09/30/2022 4:09 PM EDT Plan of Treatment Health Maintenance Due Date Last Done Comments Influenza Vaccine (Season Ended) 2025 02/01/2022, 01/27/2020, 01/20/2019, Additional history exists Pneumococcal Vaccine: 65+ Years Completed 01/05/2018, 02/17/2017, 02/05/2017 Insurance [employer] MED[employer]ARE [employer]VANTAGE Care Teams Cardroom Hand Relationship Specialty Start Date End Date Marine Glass MD PCP - General Family Medicine 09/26/22
--- OUTSIDE RECORDS SUMMARY | 2024-10-26 08:41 | XMS_ITS | Encounter Summary ---
Author Organization [email or web address] [facility] Address [facility] [id number] [address] [place] [address] Care Team Providers Care Printing Machinist Name Role Phone Marine Glass MD Primary Care Provider [phone] Encounter Details Date Type Department Care Team (Late st Contact Info) Description [facility] [address] [place] [phone] Ari Leija Social History Tobacco Use Types Packs/Day Years [...] got money to buy more. Never True 07/15/2023 Within the past 12 months th e food we bought just didn't last and we didn't have money to get more. Never True 07/15/2023 Purpose - Life Answer Date Recorded Purpose [...] Cardiology [address] [place] [address] Karen Mart, ISO COORDINATOR-PUBLIC HEALTH DIETITIAN [address] [place] [address] documented as of this encounter Visit Diagnoses Not on filedocumented in this encounter Additional Health Concerns Assessment Noted Time PHQ-9 Depression Total Score: 0 04/24/20 20 10:41 AM EST documented as of this encounter Care Teams Printing Machinist Relationship Specialty Start Date End Date Marine Glass MD [address] [place] [address] PCP - General 07/15/23 documented as of this encounter
--- OUTSIDE RECORDS SUMMARY | 2024-10-26 08:41 | XMS_ITS | Encounter Summary ---
Author Organization [employer] [facility] Address [facility] [id number] [address] [place] [address] Care Team Providers Care Crew Leader Gluing Name Role Phone Marine Glass MD Primary Care Provider [phone] Encounter Details Date Type Department Care Team (Late st Contact Info) Description 12/04/2022 Orders Only [facility] [address] [place] [address] Jacqueline Sparrow, RN Primary hypertension (Primary Dx); Paroxysmal atrial fibrillation (CMS-HCC) Social History Tobacco Use Types Packs/Day Years [...] Cardiology [address] [place] [address] Karen Mart, WAREHOUSE AND RECEIVING SUPERVISOR-ELECTRICAL LABORATORY TECHNICIAN [address] [place] [address] documented as of this encounter Results * (ABNORMAL) Basic Metabolic Panel (12/29/2022 10:28 AM EDT) Sodium 143 134 - 146 mmol/L 12/29/2022 1:[address] [facility] Potassium, Bld 3.9 3.5 - 5.0 mmol/L 12/29/2022 1:[address] [facility] Chloride 103 98 - 109 mmol/L 12/29/2022 1:[address] [facility] CO2 30 22 - 32 mmol/L 12/29/2022 1:[address] [facility] Anion gap 10 5 - 15 mmol/L 12/29/2022 1:[address] [facility] BUN 23 5 - 27 mg/dL 12/29/2022 1:[address] [facility] Creatinine 1.04(H) 0.40 - 1.00 mg/dL 12/29/2022 1:[address] [facility] Comment:METHOD TRACEABLE TO IDMS STANDARD Glucose 95 65 - 99 mg/dL 12/29/2022 1:[address] [facility] Calcium 10.0 8.5 - 10.5 mg/dL 12/29/2022 1:[address] [facility] eGFR (CKD-EPI)non-ra ce dependent 56(L) >59 ml/min/1.7 3sq.m 12/29/2022 1:[address] [facility] Comment: Reported eGFR is based on the CKD-EPI 2020 equation that does not use a race coefficient. PLASMA 12/29/2022 10:2 8 AM EDT 12/29/2022 10:29 AM EDT Mike Craft MD LAB BLOOD ORDERABLES Final Re sult [facility] [address] [place] [address] documented in this encounter Visit Diagnoses Diagnosis Primary hypertension- Primary Unspecified essential hypertension Paroxysmal atrial fibrillation (CMS-HCC) Atrial fibrillation documented in this encounter Additional Health Concerns Assessment Noted Time PHQ-9 Depression Total Score: 0 04/24/20 20 10:41 AM EST documented as of this encounter Care Teams Crew Leader Gluing Relationship Specialty Start Date End Date Marine Glass MD [address] [place] [id number] PCP - General 07/15/23 documented as of this encounter
--- OUTSIDE RECORDS SUMMARY | 2024-10-26 08:42 | XMS_ITS | Clinical Summary ---
Author Organization [facility] Address [address] [place], [place] [id number] Care Team Providers Care Hydro Electric Station Operator Name Role Phone Marine Glass MD Primary Care Provider [phone] Allergies Active Allergy Reactions Criticality Noted Date Comments Baclofen Unknown 03/19/2017 Codeine Unknown 03/19/2017 Hydrocodone-Acetaminophen Unknown 03/19/2017 Levofloxacin Unknown 03/19/2017 Morphine Hives 12/03/2015 Oxycodone Hives 12/03/2015 Penicillins Hives 12/03/2015 Medications Omeprazole (PRILOSEC) 40 mg capsule Take 20 mg by mouth twice daily. Active potassium chloride (KLOR-CON 10) 10 mEq tablet Take 10 mEq by mouth once daily. Active SUMAtriptan (IMITREX) 25 mg tablet Take 25 mg by mouth as needed. 09/12/2016 Active apixaban (ELIQUIS) 5 mg tab(s) Take 5 mg by mouth twice daily. 08/31/2017 Active atenolol (TENORMIN) 50 mg tablet 25 mg twice daily. 08/31/2017 Active LORazepam (ATIVAN) 1 mg tablet Take 1 mg by mouth. Active flecainide (TAMBOCOR) 100 mg tablet Take 100 mg by mouth. 10/06/2017 Active temazepam (RESTORIL) 30 mg cap 0 08/23/2018 Active losartan-hydroch lorothiazide (HYZAAR) 100-25 mg per tablet 07/28/2018 Activ e meperidine (DEMEROL) 50 mg tablet Take 25 mg by mouth as needed. Active lisinopril (ZESTRIL, PRINIVIL) 20 mg tablet 02/22/2019 Active XIIDRA 5 % dpet 03/10/2019 Act david cyclobenzaprine (FLEXERIL) 10 mg tablet Take 10 mg by mouth twice daily as needed. 0 01/13/2019 Active Active Problems Problem Noted Date Diagnosed Date Chronic atrial fibrillation 03/24/2018 History of breast cancer 09/23/2017 Breast cancer of upper-outer quadrant of left fe male breast 12/06/2015 Carcinoma in situ of left breast 12/03/2015 Immunizations Immunization Administration Dates Next Due COVID-19 original vaccine, a ge 12+ yr, monovalent ([place] - PURPLE TOP) 06/20/2020,05/18/2020 influenza (HD-IIV3) vaccine, age 65+ yr, high dose, trivalent, PF (FLUZONE HIGH-DOSE) 01/20/2019,01/05/2018 pneumococcal polysaccharide (PPV23) vaccine, 23 valent (PNEUMOVAX 23) 01/05/2018 Family History Medical History Relation Comments Cancer Brother Prostate;64 Cancer Father Lung Cancer Mother colon; 72, Stoma ch ca; 63, biliary; 81 Breast Cancer Other 1 niece dx 42 Breast Cancer Other 2 great niece dx 3 0 Cancer Sister colon, liver, me lanoma, pancreatic 69 (MSH2 del exons 8-15) Relation Status Comments Brother Father Mother Other 1 Other 2 Sister Social History Tobacco Use Types Packs/Day Years Used Date Smoking Tobacco: Former Cigarettes 1 20 0 12/05/1970 - 12/05/1990 Smokeless Tobacco: Never Alcohol Use Standard Drinks/Week Comments Yes 0 (1 standard drink = 0.6 oz pur e alcohol) PHQ-2 Answer Date Recorded PHQ-2 score 0 10/07/2019 Area Deprivation Index Answer Date Kike rded National Score (1-100), lower number is lower ri sk 60 05/17/2022 State Score (1-10), lower number is lower risk N ot on file 05/17/2022 Data from: https://www.neighborhoodatlas.medicine.[facility].edu/. Last address used for calculation [address] 05/17/2022 Comments No Sex and Gender Information Value Date Recorded Sex Assigned at Not on file Legal Sex Female 8:44 AM EST Gender Identity Not on file Sexual Orientation Not on file Last Filed Vital Signs Vital Sign Reading Time Taken Comments Blood Pressure 149/62 10/08/2020 12:50 PM EDT Pulse 70 10/08/2020 12:50 PM EDT Temperature 36.2 C (97.1 F) 10/08/2020 12:50 PM EDT Respiratory Rate 18 10/08/2020 12:5 0 PM EDT Oxygen Saturation 97% 10/08/2020 12: 50 PM EDT Inhaled Oxygen Concentration - - Weight 79.2 kg (174 lb 11.2 oz) 021 12:50 PM EDT Height 165.7 cm (5' 5.24 ) 10/08/2020 1 2:50 PM EDT Body Mass Index 28.86 10/08/2020 12:50 PM EDT Plan of Treatment Health Maintenance Due Date Last Done Comments Anxiety Screening 07/07/1963 Depression Screening 07/07/1965 DTaP,Tdap,Td Vaccine (1 - Tdap) 07/07/1966 Shingrix Vaccine (1 of 2) 07/07/1997 Bone Density Screening 07/07/2012 Pneumococcal Vaccine: 50+ (2 of 2 - PCV) 01/05/2019 01/05/2018 RSV Vaccine (1 - 1-dose 75+ series) 07/07/2022 Diabetes Screening 10/09/2023 10/08/2020, 1 06/25/2019, 02/27/2020, Additional history exists Covid-19 Vaccine (3 - 2023-2 5 season) 2024 06/20/2020, 05/18/2020 Advance Directive Discussion 05/04/2024 Influenza Vaccine (Season Ended) 2025 01/21/20 19, 01/05/2018 Hepatitis C Screening Completed 10/21/2018 Mammogram Screening Discontinued 09/25/2020, 09/27/2019, 01/20/2018 Procedures Procedure Name Priority Date/Time Associated Diagnosis Comments COMPREHENSIVE METABOLIC PANEL Routine 10/08/2020 1:22 PM EDT Malignant neoplasm of upper-outer quadrant of left breast in female, estrogen receptor positive (HCC) from Last 3 Months or Most Recently Relevant to Health Maintenance Results * (ABNORMAL) COMP METABOLIC PANEL (10/08/2020 1:22 PM EDT) Protein, Total 7.3 6.3 - 8.0 g/dL 10/08/2020 1:56 PM EDT [facility] Albumin 4.3 3.9 - 4.9 g/dL 10/08/2020 1:56 PM EDT [facility] Calcium 10.4(H) 8.5 - 10.2 mg/dL 10/08/2020 1:56 PM EDT [facility] Bilirubin, Total 0.2 0.2 - 1.3 mg/dL 10/08/2020 1:56 PM EDT [facility] Alkaline Phosphatase 65 34 - 123 U/L 10/08/2020 1:56 PM EDT [facility] AST 24 13 - 35 U/L 10/08/2020 1:56 PM EDT [facility] Glucose 113(H) 74 - 99 mg/dL 10/08/2020 1:56 PM EDT [facility] Comment: The [place] Diabetes Association (ADA) provides guidance for cutoff values for fasting glucose and random glucose. The ADA defines fasting as no caloric intake for at least 8 hours. Fasting plasma glucose results between 100 to 125 mg/dL indicate increased risk for diabetes (prediabetes). Fasting plasma glucose results greater than or equal to 126 mg/dL meet the criteria for diagnosis of diabetes. In the absence of unequivocal hyperglycemia, results should be confirmed by repeat testing. In a patient with classic symptoms of hyperglycemia or hyperglycemic crisis, random plasma glucose results greater than or equal to 200 mg/dL meet the criteria for diagnosis of diabetes. Reference: Standards of Medical Care in Diabetes 2016, [place] Diabetes Association. Diabetes Care. 2016.39(Suppl 1). BUN 35(H) 7 - 21 mg/dL 10/08/2020 1:56 PM EDT [facility] Creatinine 1.05(H) 0.58 - 0.96 mg/dL 10/08/2020 1:56 PM EDT [facility] Sodium 140 136 - 144 mmol/L 10/08/2020 1:56 PM EDT [facility] Potassium 3.8 3.7 - 5.1 mmol/L 10/08/2020 1:56 PM EDT [facility] Chloride 103 97 - 105 mmol/L 10/08/2020 1:56 PM EDT [facility] CO2 28 22 - 30 mmol/L 10/08/2020 1:56 PM EDT [facility] Anion Gap 9 9 - 18 mmol/L 10/08/2020 1:56 PM EDT [facility] ALT 13 7 - 38 U/L 10/08/2020 1:56 PM EDT [facility] eGFR- >60 10/08/2020 1:56 PM EDT [facility] eGFR-All Other Races 51 . 10/08/2020 1:56 PM EDT [facility] Comment: eGFR (Estimated GFR) Units of measure: mL/min/1.73 meters squared eGFR is derived from the reexpressed MDRD Study equation using the following parameters: serum creatinine, age, gender and race. The creatinine assay has been calibrated to be traceable to IDMS. An eGFR <60 mL/min/1.73m2 for >3 months is consistent with chronic kidney disease. Refer to KDOQI guidelines for clinical interpretation. In patients with unstable renal function, e.g. those with acute kidney injury, the eGFR may not accurately reflect actual GFR. Blood BLOOD SPECIMEN / Unknown 10/08/2020 1:22 PM EDT 10/08/2020 1:24 PM EDT us Andrew Choi MD LABORATORY Final Result [address] [address] [facility] [address] from Last 3 Months or Most Recently Relevant to Health Maintenance Insurance [employer] MEDICARE Care Teams Hydro Electric Station Operator Relationship Specialty Start Date End Date Marine Glass MD [address] [place] [id number] PCP - General Family Medicine 11/26/15
--- OUTSIDE RECORDS SUMMARY | 2024-10-26 08:42 | XMS_ITS | Encounter Summary ---
Author Organization [employer] Address [id number] [address] [place] [address] Care Team Providers Care Foot And Ankle Surgeon Name Role Phone Marine Glass MD Primary Care Provider [phone] Reason for Visit * Reason Onset Date Comments Pre-op Exam 04/24/2020 Encounter Details Date Type Department Care Team (Late st Contact Info) Description 04/24/2020 [facility] [address] [place] [phone] Irene Short RN Pre-op Exam Social History Tobacco Use Types Packs/Day Years [...] have Coronavirus / COVID-19? No / Unsure 04/24/2020 10:11 AM EST documented as of this encounter Miscellaneous Notes * Telephone Encounter - Irene Short RN - 04/24/2020 10:43 AM EST Surgeon: Dr Rivera Type of surgery: Right shoulder arthroscopy Surgery location:Unknown Type of anesthesia: unknown On a blood thinner?: Eliquis Indication? AFib On an antiplatelet?: No Stent? Type? When placed? Their preference of how long to hold blood thinners/antiplatelet: Per your recommendation History of CVA/TIA, DVT/PE? No ATTN: Dr Rivera Do they need any additional info faxed(such as office note, ekg, testing, Etc?)no Irene Short RN 04/24/20 1248 * Telephone Encounter - Bertram Lal MD - 04/24/2020 10:43 AM EST Letter dictated 04/24/2020 * Telephone Encounter - Irene Short RN - 04/24/2020 10:43 AM EST Letter faxed and lm for pt documented in this encounter Plan of Treatment Upcoming Encounters Date Type Department Care Team (Late st Contact Info) Description 11/08/2024 9:00 AM EDT Office Visit [facility] [address] [place] [address] Karen Mart, PLANT CYTOLOGIST-WEATHER STRIP MECHANIC [address] [place] [address] documented as of this encounter Visit Diagnoses Not on filedocumented in this encounter Additional Health Concerns Infection Onset Date Last Indicated Resolved Time COVID-19 Rule-Out 05/20/2021 05/20/2021 05/20/2021 6:32 PM EST COVID-19 Rule-Out 08/02/2021 08/02/2021 08/03/2021 1:10 AM EDT Assessment Noted Time PHQ-9 Depression Total Score: 0 04/24/20 20 10:41 AM EST documented as of this encounter Care Teams Foot And Ankle Surgeon Relationship Specialty Start Date End Date Marine lGass MD [address] [place] [address] PCP - General 07/15/23 documented as of this encounter
--- OUTSIDE RECORDS SUMMARY | 2024-10-26 08:42 | XMS_ITS | Clinical Summary ---
Author Organization [employer] Address [id number] [address] [place] [address] Care Team Providers Care Screw Machine Tender Name Role Phone Marine Glass MD Primary Care Provider [phone] Allergies Active Allergy Reactions Criticality Noted Date Comments Adhesive Medium 07/03/2022 Other reaction(s): Blister Codeine Itching,Rash Low 03/19/2017 With all narcotics except Demerol Levofloxacin Itching,Rash Low 03/19/2017 Baclofen Itching,Rash Low 03/19/2017 Morphine Hives 11/30/2016 Penicillin G Benzathin,Procain 07/03/2022 Penicillins Rash,Hives Low 12/03/2015 Rofecoxib 07/03/2022 Sulfadiazine 07/03/2022 Tramadol Itching Low 07/13/2019 Hydrocodone-Acetaminophen Itching,Rash Low 03/19/20 17 Zolpidem 07/03/2022 Medications temazepam (RESTORIL) 30 mg capsule Take 1 capsule (30 mg total) by mouth nightly. Active lisinopriL (PRINIVIL,ZESTRIL ) 20 mg tablet Take 1 tablet (20 mg total) by mouth in the morning. Active omeprazole (PriLOSEC) 20 mg capsule Take 1 capsule (20 mg total) by mouth in the morning. Active naproxen sodium (ALEVE) 220 mg tablet Take 1 tablet (220 mg total) by mouth as needed for pain. Active NON FORMULARY Med Name:Neuveri a vitamin 1 qd Active trospium (SANCTURA) 20 mg tablet Take 1 tablet (20 mg total) by mouth in the morning and 1 tablet (20 mg total) before bedtime. Active baclofen (LIORESAL) 20 mg tablet Take 1 tablet (20 mg total) by mouth 3 (three) times a day. PRN Active vitamins A,C,R-ovia-aidoys (ICAPS AREDS) 4,296 mcg-226 mg-90 mg capsule Take 1 capsule by mouth in the morning and 1 capsule before bedtime. 4 Active potassium chloride (K-TAB,KLOR-CON) 10 MEQ CR tablet Take 1 tablet (10 mEq total) by mouth in the morning. 90 tablet 3 4 Active atenoloL (TENORMIN) 50 mg tablet TAKE ONE AND ONE-HALF TABLETS IN THE MORNING 135 tablet 1 5 Active flecainide (TAMBOCOR) 50 mg tabletIndications :Paroxysmal atrial fibrillation (CMS-HCC) Take 1 tablet (50 mg total) by mouth in the morning and 1 tablet (50 mg total) before bedtime. 180 tablet 1 5 Active hydroCHLOROthiazi de (HYDRODIURIL) 25 mg tablet TAKE 1 TABLET DAILY 90 tablet 5 Active ELIQUIS 5 mg tabletIndications :Paroxysmal atrial fibrillation (CMS-HCC) TAKE 1 TABLET TWICE A DAY 180 tablet 5 Active Active Problems Problem Noted Date Diagnosed Date Preoperative clearance 12/29/2022 Abnormal findings diagnostic imaging of heart and coronary circulation 07/29/2021 Overview (07/29/2021): Added automatically from request for surgery [id number] Dyspnea 06/30/2018 Overview (06/30/2018): Added automatically from request for surgery [id number] Palpitations 06/30/2018 Overview (06/30/2018): Added automatically from request for surgery [id number] SOB (shortness of breath) 05/12/2018 Hypertension 10/06/2017 Paroxysmal atrial fibrillation 08/31/2017 Resolved Problems Problem Noted Date Diagnosed Date Resolved Date Unstable angina 07/29/2021 08/16/2021 Overview (07/29/2021): Added automatically from request for surgery [id number] SOB (shortness of breath) 05/12/2018 SVT (supraventricular tachycardia) 11/16/2017 12/30/2019 Encounters Date Type Department Care Team Description 08/07/2024 Refill [facility] [address] [place] [phone] Vinicio Causey PA-C Med Refill 08/03/2024 Refill [facility] [address] [place] [phone] Rosangela Montague APRN-CNP Med Refill 07/27/2024 Refill [facility] [address] [place] [phone] Sander Pollack RN Med Refill from Last 3 Months Family History Medical History Relation Name Comments Cancer Father Cancer Mother Breast cancer Niece Arrhythmia Sister Parkinsonism Sister Relation Name Status Comments Father Mother Niece Other Sister Social History Tobacco Use Types Packs/Day Years Used Date Smoking Tobacco: Former Cigarettes Q uit: 05/06/1989 Smokeless Tobacco: Never Tobacco Cessation:Counseling Given: Not Answered Comments:quit in 1989 Alcohol Use Standard Drinks/Week [...] got money to buy more. Never True 11/26/2023 Within the past 12 months th e food we bought just didn't last and we didn't have money to get more. Never True 11/26/2023 Purpose - Life Answer Date Recorded Purpose and direction in life Unknown Comments No Sex and Gender Information Value Date Recorded Sex Assigned at Female 05/09/2018 11:19 AM EST Legal Sex Female 11:36 AM EDT Gender Identity Female 05/09/2018 11:19 AM EST Sexual Orientation Not on file Last Filed Vital Signs Vital Sign Reading Time Taken Comments Blood Pressure 124/76 11/26/2023 9:56 AM EDT Pulse 56 11/26/2023 9:56 AM EDT Temperature 36.6 C (97.9 F) 05/16/2020 9:10 AM EST Respiratory Rate 21 07/15/2023 2:12 PM EDT Oxygen Saturation 97% 07/15/2023 2:12 PM EDT Inhaled Oxygen Concentration - - Weight 76.7 kg (169 lb) 11/26/2023 9:56 AM EDT Height 165.1 cm (5' 5 ) 11/26/2023 9:56 AM EDT Body Mass Index 28.12 11/26/2023 9:56 AM EDT Plan of Treatment Upcoming Encounters Date Type Department Care Team (Late st Contact Info) Description 11/08/2024 9:00 AM EDT Office Visit [facility] [address] [place] [address] Karen Mart, SODA FOUNTAIN MANAGER-OFFICE MOVER [address] [place] [phone] Health Maintenance Due Date Last Done Comments Depression Screening 1957 DTaP,Tdap and Td Vaccines (1 - Tdap) 07/07/1966 Zoster (Shingles) Vaccine (1 of 2) 07/07/1997 Fall Risk Screening 07/07/2012 Colonoscopy 04/08/2022 04/08/2017, 08/18/2012 COVID-19 Vaccine (2023-2 5 season) 2024 02/10/2023, 08/13/2021, 01/29/2021, Additional history exists Tobacco Screening 11/25/2024 11/26/2023 Influenza Vaccine 01/02/2025 02/08/2024, , 02/01/2022, Additional history exists Medical Devices Not on file Procedures Procedure Name Priority Date/Time Associated Diagnosis Comments COLONOSCOPY Routine 08/18/2012 from Last 3 Months or Most Recently Relevant to Health Maintenance Results * COLONOSCOPY (08/18/2012) Colonoscopy COLONOSCOPY [facility] EXTERNAL NON-INTERFACE D REF LAB us Scanning Provider External HEALTH MAINTENANCE Fi nal Result [facility] EXTERNAL NON-INTERFACED REF LAB [id number] [place] [address] from Last 3 Months or Most Recently Relevant to Health Maintenance Insurance [employer] MEDICARE Advance Directives Documents on File Type Date Recorded Patient Hospital Pharmacist Expl anation Living Will 05/21/2020 9:37 AM Durable Power of Room Service Runner 05/21/2020 9:27 AM Durable Power of Room Service Runner 05/16/2020 6:05 AM Living Will 05/16/2020 6:04 AM Healthcare Agents on File Name Relationship Healthcare Agent Relationshi p Communication David Burns Spouse Health Care Agent Samantha Inman Daughter [facility] re Agent Care Teams Screw Machine Tender Relationship Specialty Start Date End Date Marine Glass MD [facility] [place] [address] PCP - General 07/15/23
--- OUTSIDE RECORDS SUMMARY | 2024-10-26 08:42 | XMS_ITS | Clinical Summary ---
Author Organization [facility] Address [address] [place] [address] Care Team Providers Care Malt Liquors Sales Representative Name Role Phone Marine Glass MD Primary Care Provider [phone] Allergies Active Allergy Reactions Criticality Noted Date Comments Codeine 11/26/2018 Levofloxacin In D5w 11/26/2018 Morphine 11/26/2018 Penicillins 11/26/2018 Tramadol Hcl 11/26/2018 Hydrocodone-Acetaminophen 11/26/2018 Medications temazepam (RESTORIL) 30 MG capsule Take 30 mg by mouth nightly as needed for Sleep. Active cycloSPORINE (RESTASIS) 0.05 % ophthalmic emulsion 1 drop 2 times daily Active omeprazole (PRILOSEC) 40 MG delayed release capsule Take 40 mg by mouth daily Active apixaban (ELIQUIS) 5 MG TABS tablet Take by mouth 2 times daily Active flecainide (TAMBOCOR) 100 MG tablet Take 100 mg by mouth 2 times daily Active atenolol (TENORMIN) 25 MG tablet Take 25 mg by mouth daily Active losartan (COZAAR) 100 MG tablet Take 100 mg by mouth daily Active lidocaine (LMX) 4 % creamIndications:L umbosacral spondylosis without myelopathy Apply a half dollar sized amount to intact skin topically up to twice daily as needed for pain 1 Tube 1 9 Active gabapentin (NEURONTIN) 300 MG capsuleIndications :Lumbosacral spondylosis without myelopathy,Lumbar radiculopathy Take 1 capsule by mouth every evening for 90 days. 90 capsule 9 Active naloxone (NARCAN) 4 MG/0.1ML LIQD nasal sprayIndications:L umbosacral spondylosis without myelopathy 1 spray by Nasal route as needed for Opioid Reversal 1 each 0 Active lidocaine (LMX) 4 % creamIndications:S kin pain Apply a half dollar sized amount to intact skin topically up to twice daily as needed for pain 1 Tube 1 0 Active Lidocaine (ZTLIDO) 1.8 % PTCHIndications:Sk in pain Apply 1 patch topically daily 30 patch 0 Active Active Problems No known active problems Family History Medical History Relation Name Comments Cancer Father Arthritis Mother Cancer Mother Relation Name Status Comments Father Mother Social History Tobacco Use Types Packs/Day Years Used Date Smoking Tobacco: Former Smokeless Tobacco: Never Comments Unknown Sex and Gender Information Value Date Recorded Sex Assigned at Not on file Legal Sex Female 11:48 AM EDT Gender Identity Not on file Sexual Orientation Not on file Last Filed Vital Signs Vital Sign Reading Time Taken Comments Blood Pressure - - Pulse - - Temperature 36.3 C (97.3 F) 12/09/2019 3:38 PM EDT Respiratory Rate 16 05/25/2019 11:33 AM EST Oxygen Saturation - - Inhaled Oxygen Concentration - - Weight 79.4 kg (175 lb) 12/09/2019 3:38 PM EDT Height 165.1 cm (5' 5 ) 12/09/2019 3:38 PM EDT Body Mass Index 29.12 12/09/2019 3:38 PM EDT Plan of Treatment Not on file Care Teams Malt Liquors Sales Representative Relationship Specialty Start Date End Date Marine Glass MD PCP - General Family Medicine 10/19/18
--- OUTSIDE RECORDS SUMMARY | 2024-10-26 08:42 | XMS_ITS | Encounter Summary ---
Author Organization [employer] Address [id number] [address] [place] [address] Care Team Providers Care Slps Name Role Phone Marine Glass MD Primary Care Provider [phone] Encounter Details Date Type Department Care Team (Late st Contact Info) Description 08/10/2023 Telephone [facility] [address] [facility] [place] [address] Meredith Bernal MA Social History Tobacco Use Types Packs/Day Years [...] encounter Miscellaneous Notes * Telephone Encounter - Meredith Bernal MA - 08/10/2023 11:53 AM EDT Left message for patient to remind them to bring their most current medication list with them to their appointment. documented in this encounter Plan of Treatment Upcoming Encounters Date Type Department Care Team (Late st Contact Info) Description 11/08/2024 9:00 AM EDT Office Visit [facility] [address] [place] [address] Karen Mart, PACKAGING MANAGER-CASINO FLOOR WALKER [address] [place] [phone] documented as of this encounter Visit Diagnoses Not on filedocumented in this encounter Additional Health Concerns Assessment Noted Time PHQ-9 Depression Total Score: 0 04/24/20 20 10:41 AM EST documented as of this encounter Care Teams Slps Relationship Specialty Start Date End Date Marine Glass MD [address] [place] [address] PCP - General 07/15/23 documented as of this encounter
--- NOTE | 2024-10-26 08:52 | P.CN_ITS ---
Consult Note: HPI Data of Consult Patient: known to practice within the last 3 years Requesting Physician: Larissa Turner NP Primary Care Provider: Marine Glass MD Consult Narrative Reason for consult: left low back pain Narrative: Bettie Burns a 79 year old female presents for evaluation of chronic low back and SIJ pain, notes worsening left SIJ pain since last visit. has failed to benefit from > 6 weeks of PT/HEP, heat, ice, tylenol, cannot take NSAIds on apixaban. denies falls or injury. pain today 7/10 throbbing aching increasing to 10/10 with any movement, standing, walking, lifting, bending, and sleep. cc:: CC: Larissa Turner NP Review of Systems ROS Status of ROS 10 or more systems reviewed and unremark able except as noted in history and below [facility] Medical History (Updated 10/26/24 @ 08:55 by Larissa Turner NP) Neck pain ?M54.2 - Cervicalgia (ICD-10) Upper back pain ?M54.9 - Dorsalgia, unspecified (ICD-10) Low back pain ?M54.50 - Low back pain, unspecified (ICD-10) Osteoarthritis ?M19.90 - Unspecified osteoarthritis, unspecified site (ICD-10) H/O malignant neoplasm of breast ?Z85.3 - Personal history of malignant neoplasm of breast (ICD-10) Hearing deficit ?H91.90 - Unspecified hearing loss, unspecified ear (ICD-10) Former smoker ?Z87.891 - Personal history of nicotine dependence (ICD-10) Hypertension ?I10 - Essential (primary) hypertension (ICD-10) Atrial fibrillation ?I48.91 - Unspecified atrial fibrillation (ICD-10) Cataract ?H26.9 - Unspecified cataract (ICD-10) Surgical History Status post hip surgery ?Z98.890 - Other specified postprocedural states (ICD-10) H/O total hip arthroplasty ?Z96.649 - Presence of unspecified artificial hip joint (ICD-10) H/O cardiac catheterization ?Z98.890 - Other specified postprocedural states (ICD-10) History of cholecystectomy ?Z90.49 - Acquired absence of other specified parts of digestive tract (ICD- 10) H/O: hysterectomy ?Z90.710 - Acquired absence of both cervix and uterus (ICD-10) H/O foot surgery ?Z98.890 - Other specified postprocedural states (ICD-10) H/O eye surgery ?Z98.890 - Other specified postprocedural states (ICD-10) H/O shoulder surgery ?Z98.890 - Other specified postprocedural states (ICD-10) H/O breast surgery ?Z98.890 - Other specified postprocedural states (ICD-10) Social History Smoking status: Never smoker Meds Home Medications and Allergies Home Medications ?Medication ?Instructions ?Recorded ?Confirmed ?Type apixaban 5 mg tablet (Eliquis) 5 mg PO BID 10/28/22 History atenolol 50 mg tablet 75 mg PO DAILY 10/28/2208/03 History hydrochlorothiazide 25 mg tablet 25 mg PO DAILY 08/22/24 History lisinopril 20 mg tablet 20 mg PO DAILY 10/28/2208/03 History neuveria vitamin DAILY 10/28/22 History trospium 20 mg tablet 20 mg PO Q12H 04/02/2308/22 History aspirin 500 mg tablet (Mckenna 500 mg PO DAILY PRN pain 11/04/23 08/22/24 History Advanced) cyclosporine 0.05 % eye drops in a drp ophthalmic (eye ) 11/04/23 History dropperette omeprazole 40 mg capsule,delayed 40 mg PO DAILY 08/22/24 History release vit C 250 mg-vit E 90 mg-zinc 40 1 tab PO BID 11/04/23 08/22/24 History mg-copper 1 nn-nimure-gkamms capsule (PreserVision AREDS-2) flecainide 50 mg tablet mg 12/14/23 History potassium chloride 10 mEq meq PO 12/14/23 History tablet,extended release methocarbamol 500 mg tablet 500 mg PO BID PRN spasms # 60 tabs 09/01/24 Rx Allergies Allergy/AdvReac Type Severity Reaction Status Date / Time acetaminophen (From Vicodin) Allergy Severe itching Verified 08/22/24 06:57 hydrocodone (From Vicodin) Allergy Severe itching Verified 08/22/24 06:57 codeine Allergy Unknown Hives Verified 08/22/24 06:57 levofloxacin (From Levaquin) Allergy Unknown uticaria Verified 08/22/24 06:57 morphine Allergy Unknown uticaria Verified 08/22/24 06:57 Penicillins Allergy Unknown uticaria Verified 08/22/24 06:57 tramadol Allergy Unknown uticaria Verified 08/22/24 06:57 cyclobenzaprine Allergy Rash Verified 08/22/24 06:58 Exam Constitutional Documenting provider has reviewed patient's vital signs: yes Common normals: no apparent distress, oriented x3, healthy appearing, alert and well nourished General appearance: cooperative HENMT Common normals: normocephalic, hearing grossly normal bilaterally and moist oral mucous membranes Head and scalp: normocephalic Eye Common normals: PERRL Pupil: PERRL Neck & C-Spine Common normals: full ROM General: normal visual inspection Chest Common normals: inspection of chest normal Respiratory Common normals: normal respiratory effort, no retractions and no use of accessory muscles Back & Pelvis Lumbar spine/lower back: pain with ROM and lumbar spinal tenderness Sacroiliac joints: SI joint(s) abnormal Other: sensation intact BLE strength intact BLE left sij positive jovanna(patricks), gaenslens, thigh thrust, compression test Neuro Common normals: oriented x3 Sensorium/orientation: alert Psych Common normals: mental status grossly normal, thought process normal, [employer] perative, affect normal, speech normal and activity/motor behavior normal Speech: normal speech Thought process: normal thought process Results Additional Findings Additional findings: If on a controlled substance or opioids, I have checked an [place] report on this patient and there are no aberrancies noted in the prescribing history.??If on a controlled substance or opioid a drug screen was completed and reviewed within the last year, and if there has not been a drug screen completed we ordered one today to monitor higher risk, state monitored pain medication use. As part of providing excellent, safe, comprehensive care, the following was completed at our patient's visit: 1. A medication reconciliation and review to ensure accurate knowledge of current/active medications, including asking our patients to inform us about any [id number] medications or herbal remedies/nutritional supplements/alternative remedies. 2. A review to specifically ensure our patients have had annual screening for screening for depression, screening for tobacco use, and screening for unhealthy alcohol use. For concerning screenings had a discussion with the patient, provided patient education, and recommended follow-up with primary care provider when appropriate. If patient noted with a risk of falling, they received education on strength, gait, and balance training to prevent future risk of falling. Portions of this note may have been carried over from the previous visit and updated as appropriate. Please note this office utilizes paper charting in addition to the electronic medical record. A list of current medications, vitals, and PMH is available there as the clinical staff outside of myself do not have access to [email or web address] charting during the clinic day operations. As part of providing quality comprehensive care the current medications, vitals, and PMH were reviewed in the paper chart. Assessment and Plan Assessment and Plan (1) Sacroiliitis: Assessment and Plan: The patient has had over 3 months of moderate to severe low back and left SIJ pain with functional impairment and inadequate response to conservative care including NSAIDS (unless there are contraindication such as concurrent blood thinners), multiple oral or topical pain medications, and home exercise program/physical therapy.? Patient has completed >6 weeks of guided home exercise program and/or formal physical therapy program without relief of their symptoms.? I have reviewed the imaging of the lumbar spine and no red flags were identified. The Oswestry Disability Index was completed, and the patient scored a 54%.? The patient noted the following:?? moderate to severe pain impacting ADLs, sitting, standing, sleeping, social life, travel We discussed the risks and benefits of the procedure with the patient, and we are NOT planning on using sedation as outlined in the guidelines from Medicare unless there is a documented reason that sedation would be strongly recommended.?? ?The procedure will be completed with fluoroscopic guidance.? (2) Acute on chronic low back pain: Plan proceed with left SIJ injection under fluoroscopy medrol dose pack discussed and ordered for acute on chronic low back pain continue prn tylenol as well as methocarbamol 500mg BID PRN pain/spasms f/u 2 weeks after injection
--- OUTSIDE RECORDS SUMMARY | 2024-10-26 08:59 | XMS_ITS | CCD ---
Author Organization [facility]iniSyak Care Team Providers Care Pleat Patternmaker Name Role Phone PHYSICIAN, DEFAULT Unavailable Unavailable [...] Referring Unavailable ELLIOT STARKS Primary Care Unavailable Elliot Starks MD Primary Care Provider Elliot Starks MD Primary Care Provider Alfreda Miller Attending Unavailable Maria E Osman Attending Unavailable Jacqui, Maria E Attending Unavailable [...] OHARA Attending Unavailable MAYDA, MIKO Referring Unavailable STARKS, ELLIOT Primary Care Unavailable SELF, SELF Referring Unavailable MIKO OHARA Attending Unavailable STARKS, ELLIOT Primary Care Unavailable BROCWELL, DIVINE M Referring Unavailable STARKS, ELLIOT Primary Care Unavailable BROCWELL, DIVINE M Attending Unavailable Elliot Starks MD Primary Care Provider [phone] Giclaudy VILLEGAS, Daisy Dietz Attending Unavailable Agusto VILLEGAS, Andrius Vaudrey Attending Unavailable Giclaudy VILLEGAS, Andrius J Luis Attending Unavailable Alfreda Miller Attending Unavailable Jean Pierre MARTE Admitting Unavailable Jean Pierre MARTE Attending Unavailable Alfreda Miller Referring Unavailable Maria E Osman Attending Unavailable Alfreda Miller Attending Unavailable Alfreda Miller Referring Unavailable Alfreda Miller Admitting Unavailable Allergies Allergy Classification Reported Allergen(s) Allergy Type Date of Onset Reaction(s) Facility (20 sources) Acetaminophen / HYDROcodone; Translations: [HYDROCODONE-ACET AMINOPHEN] Drug Allergy 03-19-20 17 Unknown, Itching, Nausea Only, Rash [facility] (20 sources) Baclofen; Translations: [baclofen] Drug Allergy 03-19-20 17 Unknown, Itching, Rash [facility] (20 sources) Codeine; Translations: [codeine] Drug Allergy 08-09-19 09 Unknown, Itching, Rash [facility] (20 sources) levoFLOXacin; Translations: [levofloxacin] Drug Allergy 03-19-20 17 Unknown, Itching, Nausea Only, Rash [facility] (20 sources) Morphine; Translations: [morphine] Drug Allergy 08-09-19 09 [facility] (16 sources) oxyCODONE Drug Allergy 12-03-19 16 [facility] (10 sources) Penicillins; Translations: [PENICILLINS] Drug Allergy 12-03-19 16 Hives, Rash [facility] (1 source) Baclofen Drug Allergy [facility] (1 source) Codeine Drug Allergy [facility] (17 sources) levoFLOXacin; Translations: [Levaquin] Drug Allergy Unknown [facility] (1 source) Morphine Drug Allergy 05-04-18 94 [facility] (1 source) oxyCODONE Drug Allergy 05-04-19 05 [facility] (1 source) Penicillins Drug allergy (disorder) 05-04-18 93 [facility] (6 sources) traMADol; Translations: [Ultram] Drug Allergy [facility] (11 sources) Codeine Drug Allergy Unknown [facility] Other (20 sources) Penicillin; Translations: [penicillin] Drug Allergy Unknown [facility] (20 sources) traMADol; Translations: [tramadol] Drug Allergy 07-13-19 20 Itching [facility] (20 sources) zolpidem; Translations: [zolpidem] Drug Allergy 07-04-19 Unknown, Hives [facility] (11 sources) Penicillins Drug Allergy 12-03-19 16 Hives, Rash [facility] (1 source) Non-steroidal anti-inflammatory agent Drug allergy 02-02-20 13 Unknown [facility] Other (20 sources) sulfADIAZINE; Translations: [SULFADIAZINE] Drug Allergy 07-04-19 23 Comment:Sulfa [facility] (1 source) Ultram *ANALGESICS - OPIOID* Propensity to adverse reactions Unknown [facility] Other (1 source) Vioxx *ANALGESICS - ANTI-INFLAMMATORY * Propensity to adverse reactions Unknown [facility] Other (1 source) Penicillin G Benzathine & Proc Drug allergy Unknown [facility] Other (1 source) Morphine Sulfate (Concentrate) *ANALGESICS - OPIOI Propensity to adverse reactions Unknown [facility] Other (1 source) Allergies Reconciled Propensity to adverse reactions Unknown [facility] Other (1 source) patient allergy list reviewed by nurse or physicia Propensity to adverse reactions 02-02-20 13 Comment:Done [facility] Other (1 source) Vicodin *ANALGESICS - OPIOID* Propensity to adverse reactions Unknown [facility] Other (5 sources) calcitonin Drug allergy 10-28-19 24 Unknown, [facility] (12 sources) Penicillins Propensity to adverse reactions to drug 05-14-19 24 [facility] (1 source) Acetaminophen / HYDROcodone; Translations: [Vicodin] Drug Allergy [facility] (1 source) Adhesive Tape; Translations: [Tape] Propensity to adverse reactions (disorder) [facility] (10 sources) Latex Propensity to adverse reactions to drug 06-19-19 24 [facility] (10 sources) *Adhesive Tape Propensity to adverse reactions 07-04-19 23 [facility] (8 sources) Cephalexin Drug Allergy 07-09-19 24 Nausea Only, Dry Mouth, Flushing [facility] (15 sources) Adhesive agent; Translations: [ADHESIVE] Propensity to adverse reactions to drug (disorder) 07-04-19 23 [facility] (19 sources) rofecoxib; Translations: [ROFECOXIB] Drug Allergy 07-04-19 23 [facility] (15 sources) PENICILLIN G BENZATHIN,PROCAIN ; Translations: [PENICILLIN G BENZATHIN,PROCAIN ] Propensity to adverse reactions to drug (disorder) 07-04-19 23 [facility] (4 sources) Acetaminophen Drug Allergy 10-28-19 24 [facility] (4 sources) HYDROcodone Drug Allergy 10-28-19 24 [facility] (4 sources) Penicillin G Benzathine Allergy to substance 10-28-[address] [facility] (4 sources) Morphine; Translations: [Morphine Sulfate] Drug Allergy [facility] (4 sources) zolpidem; Translations: [Ambien] Drug Allergy [facility] (2 sources) Penicillins Propensity to [...] 30, 2024 10:34am Start: 08-31-2017 End: 08-10-2024 Eliquis 5 mg oral tablet Ref ills(s) 0 Start Date: 02/11/23 Status: Ordered Repeat number: 1 take 2 tablets by [facility] every twelve hours apixaban 2.5 MG tablet Take 2 tablets by mouth every 12 hours. Active apixaban 2.5 MG tablet Take by mouth every 12 hours. 0 Active Comment on above: Take 5 mg by mouth t wice daily. ascorbic acid 226 mg / beta carotene 39013 unt / cuprous oxide 0.8 mg / dl-alpha tocopheryl acetate 200 unt / zinc oxide 34.8 mg oral capsule (7 sources) Vitamin C Start: 10-28-2023 take 1 capsule by mouth in the morning vitamins A,C,P-lzhl-dhcutf (ICAPS AREDS) 4,296 mcg-226 mg-90 mg capsule Take 1 capsule by mouth in the morning and 1 capsule before bedtime. 10/28/2023 Active atenolol 50 mg oral tablet (20 sources) beta-Adrenergic Eli Start: 06-22-2024 atenolol 50 mg Tab 50 [...] 1 month, then 2x/week for maintainence, [facility]/pharmacy #[id number], 165, cm, 02/11/23 10:41:00 EDT, Height/Length Dosing, 77.5, kg, 02/11/23 10:41:00 EDT, Weight Dosing 02/11/2023 Active Start: 02-11-2023 Estrace 0.1 mg /g Cream See Instructions, 42.5 gm, Refill(s) 3, apply pea size amount to urethra/inner vagina 3x/week x 1 month, then 2x/week for maintainence, [facility]/pharmacy #[id number], 165, cm, 02/11/23 10:41:00 EDT, Height/Length Dosing, 77.5, kg, 02/11/23 10:41:00 EDT, Weight Dosing Start Date: 02/11/23 Status: Ordered flecainide acetate 50 mg oral tablet (20 sources) Antiarrhythmic Start: 07-15-2023 End: 08-06-2024 flecainide 50 mg Tab 50 mg = 1 tab(s), Refills(s) 0 Start Date: 06/22/24 Status: Ordered Repeat number: 1 Start: 07-15-2023 End: 08-06-2024 take 1 tablet [...] (20 sources) Thiazide Diuretic Start: 2022 End: 2024 hydroCHLOROthiazide (HYDRODIURIL) 25 mg tablet TAKE 1 TABLET DAILY 90 tablet 08/04/2024 Active hydroCHLOROthiazide 25 mg / losartan potassium [...] # 30 tab(s), Refills(s) 11, Pharmacy: [facility]/pharmacy #[id number], 165, cm, 02/11/23 10:41:00 EDT, Height/Length Dosing, 77.5, kg, 02/11/23 10:41:00 EDT, Weight Dosing Start Date: 02/11/23 Status: Ordered Multiple Vitamin (multivitamin) capsule (8 sources) take 1 capsule by mouth once daily Multiple Vitamin (multivitamin) capsule Take 1 capsule by mouth daily. Active Aleve (19 sources) Nonsteroidal Anti-inflammatory Drug Start: 06-22-19 Aleve [...] needed for pain. Active Neuveria Vitamin OTC (4 sources) Start: 06-22-2024 Neuveria Vitam in OTC [...] Start: 04-30-2024 take 1 capsule by mo [facility] once daily Omeprazole 40 mg capsule,delayed release(DR/EC) [...] 02/11/23 Status: Ordered take 1 capsule by [facility] in the morning omeprazole (PriLOSEC) 20 mg capsule Take 1 capsule (20 mg total) by mouth in the morning. Active take 20 mg by mouth once daily in the morning OMEPRAZOLE PO Take 20 mg by mouth daily. am Active Omeprazole (PRIL OSEC) 40 mg capsule Take 20 mg by mouth twice daily. 0 Active take 1 capsule by [facility] once daily omeprazole [address] Take 1 capsule by mouth daily. 0 Active Omeprazole 40 mg TAKE 2 CAPSULES DAILY Active take 1 capsule by [facility] once daily Omeprazole 40 MG 1 [...] Active Start: 08-11-2022 take 1 tablet by [facility] every twelve hours Bactrim DS 800-160 MG [...] needed. traZODone hydrochloride 50 mg oral tablet (6 sources) Serotonin Reuptake Inhibitor Start: 06-22-2024 traZODONE [...] Mixed incontinence Trospium Chlorid e Active Vitamins A,C,A-Awub-Ladihb (Preservision Areds) 4,296 mcg-226 mg-90 mg capsule (4 sources) Start: 10-28-2023 take 1 capsule by mouth twice daily Vitamins A,C,W-Exvk-Xifkce (Preservision Areds) 4,296 mcg-226 mg-90 mg capsule Active 1 CAP PO Twice daily October 27, 2023 11:00pm Start: 10-28-2023 take 1 capsule by mo [facility] twice daily Vitamins A,C,F-Ifhb-Klugsp (Preservision Areds) 4,296 mcg-226 mg-90 mg capsule [...] Post-op/Post-Proc Start: 07-07-2023 take 2 tablets by [facility] every four hours as needed Acetaminophen [...] Until Discontinued, Post-op/Post-Proc cycloSPORINE Opth 0.05% Emul (4 sources) Start: 06-22-2024 cycloSPORINE Opth 0.05% Emul [...] (20 sources) Start: 06-22-2024 Potassium Chlo ride (Rnh-Xqks-Uww 10) 10 mEq oral tablet, extended release 10 mEq = 1 tab(s), Refills(s) 0 Start Date: 06/22/24 Status: Ordered Repeat number: 1 Start: 06-22-2024 Potassium Chlo ride (Tco-Jmeh-Xhw 10) 10 mEq oral tablet, extended release [...] to other specified organisms Episodic Allergic reactions (6 sources) Eczema 02-05-2023 Episodic Anal and rectal conditions (6 sources) Disorder of rectum 02-05-2023 Episodic Anxiety [...] 04-29-2022 Chronic Genitourinary symptoms and ill-defined conditions (10 sources) Mixed incontinence; Translations: [Incontinence] Onset: 02-11-2023 [...] Other fatigue; Translations: [Fatigue] Onset: 06-11-2022 Episodic Menopausal disorders (1 source) Atrophic vaginitis; Translations: [Postmenopausal atrophic vaginitis] Onset: 09-19-2024 Chronic Osteoarthritis (15 sources) Unspecified osteoarthritis, unspecified site; Translations: [Localized, primary osteoarthritis of the pelvic region and thigh] Onset: 06-11-2022 05-06-2023 Chronic Other aftercare (1 source) Other mcc (current) drug therapy; Translations: [OTH APPLICATIONS PROGRAMMER CURRENT DRUG THERAPY] Onset: 06-11-2022 Episodic Other aftercare (2 sources) Long-term current use of anticoagulant; Translations: [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 continuous churn (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) use of anticoagulants] Onset: 02-11-2023 Episodic [...] of mental health and substance abuse codes (9 sources) Personal history of nicotine dependence; Translations: [...] W/AND (SUSP) EXPOS COVID-19] Onset: 06-11-2022 Unclassified (6 sources) Drug therapy finding 02-11-2023 Unclassified (1 [...] disease (18 sources) Atherosclerotic heart disease of [place] coronary artery without angina pectoris; Translations: [Coronary [...] Test Name Value Interpretation Reference Range Facility Inpatient Patient Summaryon 09-19-2024 Inpatient Patient Summary Inpatient Patient Summary [place] [id number] Clinical Summary Person Information Name: BETTIE BURNS Age: 79 Years : 1945 Sex: Female PCP: ELLIOT STARKS MD Marital Status: Race: White Ethnicity: Non- or Language: Sammarinese Visit Id: Visit Reason: MIXED INCONTINENCE Speciality: Acuity: Enc Type: Outpatient Med Service: Surgery Arrival: 09/19/2024 07:39:26 Discharge: Dispo Type: Address: [address] [place] [id number] Provider Notes: Diagnosis: Mixed incontinence; Recurrent UTI; Vaginal atrophy Problems Active Former smoker History of breast cancer Mixed incontinence Anticoagulated Microscopic hematuria Rectocele Eczema Frequent UTI Hypertensive disorder (10/06/2017) History of malignant neoplasm of breast (09/23/2017) Chronic atrial fibrillation (03/24/2018) Smoking Status: Functional Status: Sensory Deficits: History of Falls: Mobility Assistance Prior to Admission: ADLs: Current Level of Assistance for Self-Care/Mobility: Cognitive Status: Allergies penicillin Ultram codeine Levaquin Morphine Sulfate Ambien baclofen Laboratory or Other Results This Visit (last charted value for your 09/19/2024 visit) No Laboratory or Other Results This Visit Measurements: Height: Weight: Blood Pressure: Not Valued / Not Valued BMI: Procedures No Procedures Documented Immunizations No Immunizations Documented This Visit Final Med List: apixaban (Eliquis 5 mg oral tablet) atenolol (atenolol 50 mg Tab) 1 Tablets. cephalexin (Keflex 500 mg Cap) 1 Capsules By Mouth every 12 hours for 7 Days. Refills: 0. cycloSPORINE ophthalmic (cycloSPORINE Opth 0.05% Emul) 1 Drops. estradiol topical (Estrace 0.1 mg/g Cream) Apply pea sized amount to urethra/vagina 3x a week for 1 month, then 2x a week afterwards. Refills: 2. flecainide (flecainide 50 mg Tab) 1 Tablets. hydrochlorothiazide (hydrochlorothiazide 25 mg Tab) By Mouth every day. lisinopril (lisinopril 20 mg Tab) Misc Prescription (BACLOFEN 10 MG TABLET) 0. naproxen (Aleve) Non-Formulary Medication (Neuveria Vitamin OTC) omeprazole (omeprazole 40 mg Cap-DR) 1 Capsules. potassium chloride (Potassium Chloride (Ygj-Djee-Res 10) 10 mEq oral tablet, extended release) 1 Tablets. sumatriptan (SUMAtriptan 25 mg Tab) 1 Tablets. trazodone (traZODONE 50 mg Tab) 1 Tablets. trospium (trospium 60 mg oral capsule, extended release) 1 Capsules By Mouth at bedtime. Refills: 3. Care Team Members: Attending Physician: Alfreda Miller MD Consulting Physician: Referring Physician: Alfreda Miller MD Follow up: With: Address: When: Maria E Osman Comments: Office to schedule follow up in 1 month with PVR With: Address: When: Aflreda Miller Patient Education Information: EU - Cystoscopy with Botox Injection Discharge Instructions (CUSTOM) [facility] Main OR Intraoperative Recor don 09-19-2024 Main OR Intraoperative Record Main OR Intraoperative Record IntraOp Document Type FTURO Summary Primary Physician: Alfreda Miller MD Finalized Date/Time: 09/19/24 08:27:50 Pt. Name: BETTIE BURNS/Sex: 1945 Female Med Rec #: [id number] Physician: Alfreda Miller MD Financial #: [id number] Pt. Type: O Room/Bed: / Admit/Disch: 09/19/24 07:39:26 - Institution: Case Times FTURO Entry 1 Patient Times In Room 09/19/24 08:12:00 Out Room 09/19/24 08:24:00 Procedure Times Start 09/19/24 08:17:00 Stop 09/19/24 08:20:00 Anesthesia Times Last Modified By: Roxy King 09/19/24 08:27:24 General Comments: BOTOX 100 UNITS: EXP: AND LOT: [id number].[email or web address] MOREIRA . Case Attendance FTURO Entry 1 Entry 2 Entry 3 Case Attendee Paul VILLEGAS, Roxy Herrera Laura C Role Performed Surgeon - Primary Svp - Primary Scrub - Primary Time In 09/19/24 08:12:00 09/19/24 08:12:00 09/19/24 08:12:00 Time Out 09/19/24 08:24:00 09/19/24 08:24:00 09/19/24 08:24:00 Procedure CYSTOSCOPY LOCAL BOTOX CYSTOSCOPY LOCAL BOTOX CYSTOSCOPY LOCAL BOTOX INJECTION(.) INJECTION(.) INJECTION(.) Comments Last Modified By: Roxy King Kelsie E Burgderfer, Kelsie E 09/19/24 08:27:40 09/19/24 08:27:40 09/19/24 08:27:40 Surgical Procedures FTURO Entry 1 Procedure Description Procedure CYSTOSCOPY LOCAL BOTOX Modifiers . INJECTION Surgeon Description CYSTO WITH 100 UNITS BOTOX Primary Procedure Yes Primary Surgeon Paul VILLEGAS, Alfreda Palacios Start 09/19/24 08:17:00 Stop 09/19/24 08:20:00 Anesthesia Type Local Surgical Service Urology Wound Class 2 - Clean-Contaminated Last Modified By: Roxy King 09/19/24 08:22:38 General Case Data FTURO Pre-Care Text: Classifies surgical wound, implements aseptic technique, initiates traffic control Entry 1 Case Information OR URO 1 FT Case Level None Wound Class 2 - Clean-Contaminated Specialty Urology Preop Diagnosis MIXED INCONTINENCE Postop Same As Preop Yes Postop Diagnosis MIXED INCONTINENCE Outcomes Met? Yes Last Modified By: Roxy King 09/19/24 08:15:30 Post-Care Text: The patient is free from signs and symptoms of infection EU IntraOp - FTURO Pre-Care Text: Implements protective measures prior to operative or invasive procedure, confirms identity before the operative or invasive procedure, verifies operative procedure, surgical site, and laterality Entry 1 EU Perioperative Protocols Procedure(s) CYSTOSCOPY LOCAL BOTOX Patient Identity Birthday, ID Band INJECTION(.) Verified (select at Check, Patient least 2): Participation Consents / H and P H&P, Surgery/Procedure Operative Site N/A Verified Consent Marking Verified Surgical Site Yes Laterality Verified n/a Verified Procedure Verified Yes Correct Patient Yes Position Verified Availability Equipment, Medication Time Out Alfreda Miller MD, Verified (If Participants Roxy King, Applicable) Wan Sheridan [place] Time Out Complete 09/19/24 08:16:00 Allergies Reviewed? Yes Allergies Reviewed Self/Patient With Body Position High Lithotomy Prep Area ROBBY AREA Prep Agents Betasept Skin. Condition Unable to Visualize Description N/A Additional None Specimens Comment N/A Specimens Collected Vitals - EU Blood Pressure 155/77 Pulse 75 bpm Respirations 18 br/min SPO2 98 % EBL 0 I&O - EU Total Intake 0 mL Total Output 0 mL Outcomes Met? Yes Last Modified By: Roxy King 09/19/24 08:20:33 Post-Care Text: The patient is free from signs and symptoms of injury caused by extraneous objects Sign Out FTURO Entry 1 Before Patient Leaves OR Nurse verbally Yes Nurse verbally n/a confirms with the confirms with the team the name of team that the procedure(s) instrument, sponge, recorded and needle counts are correct (or N/A) Nurse verbally n/a Nurse verbally Yes confirms with the confirms with the team how the team whether there specimen is labeled are any equipment (including patient problems to be name), if applicable addressed Sign Out Complete 09/19/24 08:20:00 Last Modified By: Roxy King 09/19/24 08:27:38 Case Comments Finalized By: Roxy King Document Signatures Signed By: Roxy King 09/19/24 08:27 Normal [facility] Main OR Preoperative Recordo n 09-19-2024 Main OR Preoperative Record Main OR Preoperative Record Holding Area Document Type FTURO Summary Primary Physician: Alfreda Miller MD Finalized Date/Time: 09/19/24 08:17:11 Pt. Name: JEANNE BURNSWALLACE Browning/Sex: 1945 Female Med Rec #: [id number] Physician: Alfreda Miller MD Financial #: [id number] Pt. Type: O Room/Bed: / Admit/Disch: 09/19/24 07:39:26 - Institution: Case Times Holding FTURO Pre-Care Text: Verifies consent for planned procedure, identifies individual values and wishes concerning care, includes family members in perioperative teaching Secures patient's records' belongings, and valuables, maintains patient's dignity and privacy, and maintains patient confidentiality Entry 1 In Holding 09/19/24 07:59:00 Outcomes Met? Yes Last Modified By: Wen Dixon LPN 09/19/24 07:59:32 Post-Care Text: The patient participates in decisions affecting his or her perioperative plan of care The patient's right to privacy is maintained Surgery Checklist FTURO Entry 1 Patient Birthday, ID Band Procedure History and Physical, Identification: Check, Patient Verification: Surgical Consent, With Participation Patient NPO after Midnight: n/a Personal Items: Glasses Limitations: up ad vadim Complaints of Pain: No Skin Integrity Intact, Banning, Warm, & Dry Vitals - EU Blood Pressure 155/77 Pulse 75 bpm Respirations 18 br/min SPO2 98 % Additional Other (See Comment) Specimens Comment ua dip Specimens Collected RN Reviewed Yes Last Modified By: Roxy King 09/19/24 08:17:10 Finalized By: Roxy King Document Signatures Signed By: Wen Dixon LPN 09/19/24 08:00 Roxy King 09/19/24 08:17 Unfinalized History Date/Time Username Reason for Unfinalizing Freetext Reason for Unfinalizing 09/19/24 08:16 [id number] Adding Additional Data Normal [facility] Operative Reporton Operative Report Operative Report Patient: BETTIE BURNS Age: 79 years Sex: Female : 1945 Associated Diagnoses: None Author: Alfreda Miller MD Procedure Operative Information Details: Date/ Time: 09/19/2024 08:24:00. Pre-Op Dx: Mixed Urinary Incontinence - N39.46. Post-Op Dx: Same. Anesthesia Type: Local. Procedure: Local Cystoscopy with botox injection. Complications: None. Risks/Benefits/Informe d Consent: Surgical risks, benefits, details of the procedure have been explained to the patient, Full informed consent has been obtained. Intraoperative Information Prepped: Patient is brought back to the endoscopy suite, Female Prep (Patient is placed in modified dorso/lithotomy position, 5 cc 2% Xylocaine Jelly is placed per Urethra, Straight cath inserted to obtain urine specimen, 60 cc 2% Xylocaine liquid inserted into bladder, 5 additional cc 2% Xylocaine Jelly is placed per Urethra, Patient in sitting position for 20 min dwell), Urine Specimen Results Negative for infection, Patient prepped in the usual fashion with Betadine solution (Hibiclens), After waiting several minutes the Cystoscope is introduced. Procedure: The trigone was identified and evaluated. The bladder was instilled with enough saline to achieve adequate visualization for the injections. The needle was inserted approximately 2 mm into the detrusor. A total of 11 injections with 1 ml volume was delivered at each site, total 100 units including 1 ml saline flush at the end, evenly spaced out throughout the bladder taking care to avoid the ureteral orficies. There was excellent hemostasis at the end of the procedure. The cystoscope was removed and the patient tolerated the procedure well without immediate complications. . The Urethra is: Normal. The Bladder is: Normal, Trabeculated None (0), No bladder tumors, lesions, stones or foreign bodies. Cystitis cystica. The ureteral orifices: Show efflux of clear urine. Removal: Cystoscope is removed, The patient tolerated it well. Moderate vaginal atrophy. No significant pelvic organ prolapse. Postoperative Information Discharge: Patient is discharged home with antibiotic coverage, Follow up arranged, Follow up with CAROLINA Sanderson in 1 month for PVR. Call when Botox wears off and repeat is desired - 6-12 months See separate clinic note regarding vaginal atrophy and recurrent UTIs. Normal [facility] Comment on above: Result Comment: Elec tronically Signed By: Paul VILLEGAS, Alfreda [email or web address].[email or web address]\Date and Time Signed: 09/19/24 08:25 EDT Outpatient Surgery Discharge Instructionon 09-19-2024 Outpatient Surgery Discharge Instruction Outpatient Surgery Discharge Instruction [address] [address] Patient Discharge Instructions PERSON INFORMATION Name: BETTIE BURNS Date of : 1945 Current Date: 09/19/2024 08:23:16 PHYSICIANS Admitting Physician: Alfreda Miller MD Comment: Discharge Diagnosis: Mixed incontinence; Recurrent UTI; Vaginal atrophy BETTIE BURNS has been given the following list of follow-up instructions, prescriptions, and patient education materials: IF UNABLE TO CONTACT YOUR PHYSICIAN AND YOU FEEL IT IS AN EMERGENCY, GO TO THE NEAREST EMERGENCY ROOM OR CALL 911 Follow up: With: Address: When: Maira E Osman Comments: Office to schedule follow up in 1 month with PVR With: Address: When: Alfreda Miller Comment: PATIENT EDUCATION INFORMATION Instructions: Cystoscopy with Botox injection ??? Voiding after the procedure: there may be some pain, burning, urgency, frequency and blood tinged urine following the procedure. These symptoms usually resolve within 2-5 days. Drink the amount of fluid it takes to keep the urine pink to yellow or clear in color. Drinking enough water and fluids will help to ease any discomfort after your procedure. ??? It may take a few days to a week to notice a gradual improvement in the overactive bladder symptoms. - Stop trospium when your symptoms improve ??? If you are having problems that seem out of the ordinary, please call. ??? If unable to contact your physician and you feel it is an emergency, go to the nearest emergency room or call 911 ??? Do not lift more than fifteen pounds for 1-2 days. If you see a lot of blood, you probably did too much. ??? Diet ??? you may resume your normal diet. ??? Pain control ??? You may take extra strength Tylenol or Motrin for discomfort. ??? Call if you have a fever over 100 degrees. ??? I, BETTIE BURNS, have received the attached patient education materials/instructions and have verbalized understanding: May we do a follow up call? Yes No I was present when discharge instructions were given Patient Signature Date Clinican/Nurse Signature ___ Date You may receive a survey from [employer] asking you to rate your care experience. Your feedback is important and will help us understand what we do well and how we can improve the quality of care we provide to you, your loved ones and our community. It???s an honor to serve you. Thank you for choosing [facility] Normal [facility] C Urineon 09-14-2024 Bacteria identified Cx Nom (U) Microbiology PROCEDURE: Urine Culture [R1] SOURCE: U CleanCatch BODY SITE: COLLECTED DATE/TIME: 09/12/2024 09:25 EDT RECEIVED DATE/TIME: 09/12/2024 17:27 EDT START DATE/TIME: 09/12/2024 17:27 EDT FREE TEXT SOURCE: ESTUARDO VILLEGAS, Jean Pierre MARTE MD, Jean Pierre Tarango FINAL REPORTS Final Report [] Verified Date/Time: 09/14/2024 09:36 EDT >100,000 cfu/ml Escherichia coli 5,000 cfu/ml Mixed skin contaminants SUSCEPTIBILITY RESULTS __ LEGEND: S=Susceptible, N/R=Not Reported, Blank=Data not available, or drug not advisable or tested, I=Intermediate, ESBL=Extended spectrum beta-lactamase, R=Resistant, TFG=Thymidine-dependen t strain, ELLA=Beta-lactamase positive, AUBREY=mcg/m;(mg/L), S*=Predicted susceptible interp, R*=Predicted resistant interp EC Antibiotic AUBREY Dilutn AUBREY Interp Ampicillin >16 R Ampicillin/ 16/8 I Sulbactam Aztreonam <=4 S Cefazolin <=2 S Cefepime <=2 S Ceftazidime <=1 S Ceftazidime/ <=8 S Avibactam Ceftriaxone <=1 S Cefuroxime <=4 S Ciprofloxacin <=0.25 S Ertapenem <=0.5 S Gentamicin >8 R Levofloxacin <=0.5 S Meropenem <=1 S Nitrofurantoin <=32 S Piperacillin/ <=8 S Tazobactam Tetracycline >8 R Tobramycin 4 S Trimethoprim/ >2/38 R Sulfa Performing Locations R1: This test was performed at: [facility], [address] [place] [address], [address]- , , [facility] Comment on above: Performed By: #### 2 [id number] #### [facility] [address] [place] [address] C Urineon 06-24-2024 Bacteria identified Cx Nom [...] Locations R1: This test was performed at: [facility], [address] [place] [address], [address]- , , Normal [facility] Comment on above: Performed By: #### 2 [id number] #### [facility] [address] [place] [address] Ambulatory Visit Summaryon 0 06-22-2024 Ambulatory Visit [...] 40 mg Cap-DR) potassium chloride (Potassium Chloride (Okt-Cdrn-Ahd 10) 10 mEq oral tablet, extended release) [...] Follow-Up Appointments Thursday 10:30 AM EDT Where: [facility] Thursday 8:15 AM EDT Where: [facility] Medications What How Much [...] 1 Capsules Unchanged potassium chloride (Potassium Chloride (Wof-Grkq-Yhy 10) 10 mEq oral tablet, extended release) [...] for choosing us for your care. Normal [facility] URINALYSISOrdered By: Tien Lyon on 06-22-2024 Bacteria Auto Ql (U) 1+ /HPF Invalid Interpretation Code Trace/HPF [facility] UA Auto SS Bilirubin Ql (U) Negative Normal Negativemg/ d L [facility] UA Auto SS Clarity (U) Clear (06/22/24 1:48 PM) Normal Clear [facility] UA Auto SS Color (U) Light-Yellow 1 (06/22/24 1:48 PM) Normal Yellow [facility] UA Auto SS Comment on above: Interpretive Data: M icroscopic readings are only performed on those samples that meet specific criteria set forth by [facility]. Epithelial cells.squamous Auto (Urine sed) [...] (U) 1+ /HPF Abnormal Trace [facility] Comment on above: Performed By: #### 4 [id number] #### [facility] [address] [place] [address] Bilirubin Ql (U) Negative Normal Negative [facility] Comment on above: Performed By: #### 4 [id number] #### [facility] [address] [place] [address] Clarity (U) Clear Normal Clear [facility] Comment on above: Performed By: #### 4 [id number] #### [facility] [address] [place] [address] Color (U) Light-Yellow Normal Yellow [facility] Comment on above: Result Comment: Micr oscopic readings are only performed on those samples that meet specific criteria set forth by [facility]. Performed By: #### 4 [id number] #### [facility] [address] [place] [address] Epithelial cells.squamous Auto (Urine sed) [#/Area] 0-2 Invalid Interpretation Code [facility] Comment on above: Performed By: #### 4 [id number] #### [facility] [address] [place] [address] Glucose Ql (U) Negative Normal Negative [facility] Comment on above: Performed By: #### 4 [id number] #### [facility] [address] [place] [address] Hemoglobin Auto test strip (U) [Mass/Vol] 2+ Abnormal Negative [facility] Comment on above: Performed By: #### 4 [id number] #### [facility] [address] [place] [address] Ketones Auto test strip Ql (U) Negative Normal Negative [facility] Comment on above: Performed By: #### 4 [id number] #### [facility] [address] [place] [address] Leukocyte esterase Auto test strip Ql (U) 250 Felipe/uL Abnormal Negative [facility] Comment on above: Performed By: #### 4 [id number] #### [facility] [address] [place] [address] Mucus Auto Ql (U) Negative Normal Negative [facility] Comment on above: Performed By: #### 4 [id number] #### [facility] [address] [place] [address] Nitrite Auto test strip Ql (U) Negative Normal Negative [facility] Comment on above: Performed By: #### 4 [id number] #### [facility] [address] [place] [address] pH (U) 6.0 [pH] Invalid Interpretation Code 5.0-9.0 [facility] Comment on above: Performed By: #### 4 [id number] #### [facility] [address] [place] [address] Protein Ql (U) Negative Normal Negative [facility] Comment on above: Performed By: #### 4 [id number] #### [facility] [address] [place] [address] 31870 RBC Ql (U) 4-20 Abnormal 0-3 [facility] Comment on above: Performed By: #### 4 [id number] #### [facility] [address] [place] [address] 77370 Specific gravity (U) [Rel density] 1.013 Invalid Interpretation Code 1.005-1.030 [facility] Comment on above: Performed By: #### 4 [id number] #### [facility] [address] [place] [address] Urobilinogen (U) [Mass/Vol] Negative Normal Negative [facility] Comment on above: Performed By: #### 4 [id number] #### [facility] [address] [place] [address] WBC Auto (Urine sed) [#/Area] 31-75 Abnormal 0-5 [facility] Comment on above: Performed By: #### 4 [id number] #### [facility] [address] [place] [address] Type of Urine collection method Random Urine Normal [facility] Comment on above: Performed By: #### 4 [id number] #### [facility] [address] [place] [address] Urology Office/Clinic Noteon 06-22-2024 Urology Office/Clinic Note [...] well nourished, in no acute distress. Assessment/Plan [facility] patient, last seen in-office 05/27/23 [...] pending completion of cystoscopy w/ KML Ordered: 91274 Measure Post Void residual urine and/or bladder [...] Urnls Dip Stick Auto w/o Microscopy POC 52571 2. Frequent UTI (N39.0: Urinary tract infection, [...] UTIs for (more content not included)... 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 MAMM SCREENING BILATERAL W CAD MAMM [...] 2:57 PM 2 a FU ACR Normal [facility] Shane 09-17-2023 CNPN Telephone (MARIA TERESA) BETTIE BURNS ([id number]) 1945 F Date Time Provider Department 09/17/23 MATT ADAMS During your visit today, we recorded the following information about you: Matt Adams, RICARDO 09/17/2023 10:20 AM Signed Pt called to request yearly Mammogram order I have pended order as previously completed Pt requests to fax to Nori Lema [phone] BRM/HM: please review and sign if agreeable [...] mammogram for malignant neoplasm of breast [Z12.31] Order(s):[facility] SCREENING W YAW [[id number]] Order #: [id number] FUTURE Prescriptions as of 09/17/2023 - lisinopril [...] Status:Closed by ANDREW CHOI on 09/17/23 Normal [facility] CBC AND AUTO DIFFon 07-15-19 ABSOLUTE BASOPHIL 0.1 X10E9/L Normal 0.0-0.2 [facility] Comment on above: Performed By: #### C BCA, 13882-0, PINR, 86828-2, CMP, 87924-7, 18691-6, THYR, 34306-6 #### [facility] ([id number]) [address] [place] [address] 069[address] ABSOLUTE NEUTROPHIL 2.8 X10E9/L Normal 1.5-6.6 [facility] Comment on above: Performed By: #### C BCA, 09427-3, PINR, 93391-8, CMP, 36128-7, 10277-3, THYR, 77432-1 #### [facility] ([id number]) [address] [place] [address] 51752 Basophils/100 WBC (Bld) 1.3 % Normal [facility] Comment on above: Performed By: #### C BCA, 52802-2, PINR, 01206-6, CMP, 97439-5, 12180-1, THYR, 34297-5 #### [facility] ([id number]) [address] [place] [address] 33426 Eosinophils (Bld) [#/Vol] 0.7 10*3/uL High 0.0-0.4 [facility] Comment on above: Performed By: #### C BCA, 21040-3, PINR, 76444-8, CMP, 29684-2, 26914-3, THYR, 05788-2 #### [facility] ([id number]) [address] [place] [address] 71631 Eosinophils/100 WBC (Bld) 11.9 % Normal [facility] Comment on above: Performed By: #### C BCA, 45264-7, PINR, 49128-8, CMP, 10581-5, 52801-5, THYR, 81780-0 #### [facility] ([id number]) [address] [place] [address] 15822 Erythrocyte distribution width (RBC) [Ratio] 13.5 % Normal 11.5-15.0 [facility] Comment on above: Performed By: #### C BCA, 36571-8, PINR, 71247-7, CMP, 85486-1, 76932-6, THYR, 09175-7 #### [facility] ([id number]) [address] [place] [address] 07400 Hematocrit (Bld) [Volume fraction] 38.5 % Normal 35-47 [facility] Comment on above: Performed By: #### C BCA, 20570-6, PINR, 66516-6, CMP, 70054-5, 29028-5, THYR, 81916-0 #### [facility] ([id number]) [address] [place] [address] 04268 Hemoglobin (Bld) [Mass/Vol] 13.3 g/dL Normal 11.7-15.5 [facility] Comment on above: Performed By: #### C BCA, 60461-8, PINR, 69838-0, CMP, 02430-7, 51095-4, THYR, 34808-7 #### [facility] ([id number]) [address] [place] [address] 95377 Lymphocytes (Bld) [#/Vol] 1.8 10*3/uL Normal 1.0-3.5 [facility] Comment on above: Performed By: #### C BCA, 71646-7, PINR, 62410-9, CMP, 84852-1, 24273-7, THYR, 25665-5 #### [facility] ([id number]) [address] [place] [address] 56731 Lymphocytes/100 WBC (Bld) 29.4 % Normal [facility] Comment on above: Performed By: #### C BCA, 96136-2, PINR, 79727-4, CMP, 09303-1, 54888-0, THYR, 85304-1 #### [facility] ([id number]) [address] [place] [address] 47252 MCH (RBC) [Entitic mass] 32.8 pg Normal 27-34 [facility] Comment on above: Performed By: #### C BCA, 09848-9, PINR, 65435-1, CMP, 00858-4, 14719-5, THYR, 38527-1 #### [facility] ([id number]) [address] [place] [address] 01558 MCHC (RBC) [Mass/Vol] 34.4 g/dL Normal 32-36 [facility] Comment on above: Performed By: #### C BCA, 40070-3, PINR, 98294-6, CMP, 23915-8, 59349-0, THYR, 40551-5 #### [facility] ([id number]) [address] [place] [address] 74203 MCV (RBC) [Entitic vol] 95 fL Normal 80-100 [facility] Comment on above: Performed By: #### C BCA, 92989-9, PINR, 02702-6, CMP, 32630-7, 69916-9, THYR, 57037-4 #### [facility] ([id number]) [address] [place] [address] 16465 Monocytes (Bld) [#/Vol] 0.8 10*3/uL Normal 0-0.9 [facility] Comment on above: Performed By: #### C BCA, 57969-0, PINR, 91456-3, CMP, 15825-9, 01620-4, THYR, 50198-6 #### [facility] ([id number]) [address] [place] [address] 52635 Monocytes/100 WBC (Bld) 13.2 % Normal [facility] Comment on above: Performed By: #### C BCA, 44116-0, PINR, 54656-5, CMP, 34707-1, 84172-1, THYR, 51445-8 #### [facility] ([id number]) [address] [place] [address] 00925 Neutrophils/100 WBC (Bld) 44.2 % Normal [facility] Comment on above: Performed By: #### C BCA, 89889-2, PINR, 86166-7, CMP, 91215-3, 29128-7, THYR, 95773-1 #### [facility] ([id number]) [address] [place] [address] 44986 Platelet mean volume (Bld) [Entitic vol] 6.9 fL Low 7-12 [facility] Comment on above: Performed By: #### C BCA, 78363-9, PINR, 18603-9, CMP, 43395-5, 59013-6, THYR, 60726-1 #### [facility] ([id number]) [address] [place] [address] 86932 Platelets (Bld) [#/Vol] 340 10*3/uL Normal 150-450 [facility] Comment on above: Performed By: #### C BCA, 15837-0, PINR, 54187-1, CMP, 03165-9, 55723-8, THYR, 41157-8 #### [facility] ([id number]) [address] [place] [address] 52770 RBC COUNT 4.05 X10E12/L Normal 3.80-5.20 [facility] Comment on above: Performed By: #### C BCA, 90369-9, PINR, 65570-0, CMP, 16665-0, 08716-3, THYR, 49984-9 #### [facility] ([id number]) [address] [place] [address] 78315 WBC (Bld) [#/Vol] 6.2 10*3/uL Normal 4.0-11.0 [facility] Comment on above: Performed By: #### C BCA, 32048-9, PINR, 59630-8, CMP, 36974-0, 23524-8, THYR, 86759-2 #### [facility] ([id number]) [address] [place] [address] 77373 COMPREHENSIVE METABOLIC PANE Roland 07-15-2023 Albumin [Mass/Vol] 3.5 g/dL Normal 3.2-5.3 [facility] Comment on above: Performed By: #### C BCA, 72864-5, PINR, 57709-0, CMP, 37318-6, 06019-5, THYR, 88525-9 #### [facility] ([id number]) [address] [place] [address] 45475 ALP [Catalytic activity/Vol] 52 U/L Normal 39-130 [facility] Comment on above: Performed By: #### C BCA, 39007-9, PINR, 48831-7, CMP, 35025-8, 51272-2, THYR, 03904-2 #### [facility] ([id number]) [address] [place] [address] 59466 ALT [Catalytic activity/Vol] 13 U/L Normal 0-31 [facility] Comment on above: Performed By: #### C BCA, 26752-3, PINR, 64295-9, CMP, 18944-7, 74704-4, THYR, 12526-9 #### [facility] ([id number]) [address] [place] [address] 97650 Anion gap [Moles/Vol] 10 mmol/L Normal 5-15 [facility] Comment on above: Performed By: #### C BCA, 14885-2, PINR, 96089-3, CMP, 95708-3, 49242-6, THYR, 50076-4 #### [facility] ([id number]) [address] [place] [address] 18827 AST [Catalytic activity/Vol] 24 U/L Normal 0-41 [facility] Comment on above: Performed By: #### C BCA, 85203-2, PINR, 93334-6, CMP, 63603-1, 37238-3, THYR, 09042-7 #### [facility] ([id number]) [address] [place] [address] 20246 Bilirubin [Mass/Vol] 0.7 mg/dL Normal 0.3-1.2 [facility] Comment on above: Performed By: #### C BCA, 53812-9, PINR, 77794-5, CMP, 28426-3, 54241-5, THYR, 24825-4 #### [facility] ([id number]) [address] [place] [address] 48217 Calcium [Mass/Vol] 9.4 mg/dL Normal 8.5-10.5 [facility] Comment on above: Performed By: #### C BCA, 88813-6, PINR, 02127-7, CMP, 35904-9, 11691-6, THYR, 35041-9 #### [facility] ([id number]) [address] [place] [address] 00215 Chloride [Moles/Vol] 102 mmol/L Normal 98-109 [facility] Comment on above: Performed By: #### C BCA, 26876-5, PINR, 57515-4, CMP, 19471-4, 18338-5, THYR, 53011-2 #### [facility] ([id number]) [address] [place] [address] 94784 CO2 [Moles/Vol] 27 mmol/L Normal 22-32 [facility] Comment on above: Performed By: #### C BCA, 91682-2, PINR, 08805-1, CMP, 10884-0, 03772-0, THYR, 38037-0 #### [facility] ([id number]) [address] [place] [address] 54201 Creatinine [Mass/Vol] 1.21 mg/dL High 0.40-1.00 [facility] Comment on above: Result Comment: METH OD TRACEABLE TO IDMS STANDARD Performed By: #### C BCA, 40057-4, PINR, 85288-4, CMP, 62886-0, 11712-6, THYR, 49791-7 #### [facility] ([id number]) [address] [place] [address] 36195 GFR/1.73 sq M.predicted among non-blacks MDRD (S/P/Bld) [Vol rate/Area] 46 mL/min/{1.73_m2} Low >59 [facility] Comment on above: Result Comment: Reported eGFR is based on the CKD-EPI 2020 equation that does not use a race coefficient. Performed By: #### C BCA, 84545-7, PINR, 32930-3, CMP, 82818-4, 41931-3, THYR, 62971-7 #### [facility] ([id number]) [address] [place] [address] Glucose [Mass/Vol] 120 mg/dL High 65-99 [facility] Comment on above: Performed By: #### C BCA, 67845-1, PINR, 05781-3, CMP, 35308-5, 60491-5, THYR, 75915-2 #### [facility] ([id number]) [address] [place] [address] 65437 Potassium [Moles/Vol] 4.0 mmol/L Normal 3.5-5.0 [facility] Comment on above: Performed By: #### C BCA, 19088-8, PINR, 15760-7, CMP, 21768-3, 59786-8, THYR, 06653-9 #### [facility] ([id number]) [address] [place] [address] 31651 Protein [Mass/Vol] 6.8 g/dL Normal 6.0-8.0 [facility] Comment on above: Performed By: #### C BCA, 43288-0, PINR, 15650-5, CMP, 06360-1, 08986-0, THYR, 32980-9 #### [facility] ([id number]) [address] [place] [address] 41331 Sodium [Moles/Vol] 139 mmol/L Normal 134-146 [facility] Comment on above: Performed By: #### C BCA, 17388-6, PINR, 44522-3, CMP, 87901-1, 07410-4, THYR, 50688-3 #### [facility] ([id number]) [address] [place] [address] 66556 Urea nitrogen [Mass/Vol] 31 mg/dL High 5-27 [facility] Comment on above: Performed By: #### C BCA, 53409-6, PINR, 33366-4, CMP, 05538-0, 74394-6, THYR, 35866-5 #### [facility] ([id number]) [address] [place] [address] 94403 Fibrin D-dimer DDU (PPP) [Ma ss/Vol]on 07-15-2023 D DIMER 220 ng/mL DDU Normal <255 [facility] Comment on above: Result Comment: Results <255 ng/mL DDU: The presence of a VTE can safely be excluded with a negative D-Dimer result and Wells score. A negative result doesn't exclude the possibility of DIC. The test be repeated along with other diagnostic tests if the patient's symptoms persist or worsen. [email or web address] Performed By: #### C BCA, 42627-5, PINR, 27403-9, CMP, 90525-2, 35586-6, THYR, 85584-3 #### [facility] ([id number]) [address] [place] [address] 76960 MAGNESIUMon 07-15-2023 Magnesium [Mass/Vol] 1.8 mg/dL Normal 1.8-2.6 [facility] Comment on above: Performed By: #### C BCA, 21609-4, PINR, 48603-7, CMP, 79046-0, 85136-8, THYR, 70496-7 #### [facility] ([id number]) [address] [place] [address] 20755 Natriuretic peptide B [Mass/ Vol]on 07-15-2023 Natriuretic peptide B (Bld) [Mass/Vol] 119 pg/mL High <100.0 [facility] Comment on above: Performed By: #### C BCA, 85611-0, PINR, 96346-8, CMP, 65865-3, 75723-2, THYR, 72726-0 #### [facility] ([id number]) [address] [place] [address] 72013 PROTIME AND INRon 07-15-2023 INR Coag (PPP) [Relative time] 1.8 {INR} High 0.8-1.1 [facility] Comment on above: Performed By: #### C BCA, 09565-6, PINR, 31755-4, CMP, 53622-7, 64154-1, THYR, 15346-3 #### [facility] ([id number]) [address] [place] [address] 96355 PT Coag (PPP) [Time] 20.8 s High 9.8-13.2 [facility] Comment on above: Result Comment: NEW REFERENCE RANGE Performed By: #### C BCA, 91575-0, PINR, 79607-9, CMP, 92755-2, 72302-5, THYR, 37648-6 #### [facility] ([id number]) [address] [place] [address] 70622 THYROID PROFILEon 07-15-2023 Free T4 [Mass/Vol] 1.25 ng/dL Normal 0.61-1.60 [facility] Comment on above: Performed By: #### C BCA, 92843-0, PINR, 90754-2, CMP, 86405-5, 47834-8, THYR, 16961-7 #### [facility] ([id number]) [address] [place] [address] 88192 TSH 1.69 uIU/mL Normal 0.49-4.67 [facility] Comment on above: Performed By: #### C BCA, 34741-2, PINR, 19411-9, CMP, 42163-6, 49968-2, THYR, 73453-6 #### [facility] ([id number]) [address] [place] [address] 64392 TROPONIN Ion 07-15-2023 Troponin I.cardiac [Mass/Vol] 0.01 ng/mL Normal 0.00-0.04 [facility] Comment on above: Performed By: #### C BCA, 61228-2, PINR, 82310-1, CMP, 97198-9, 02533-5, THYR, 69143-1 #### [facility] ([id number]) [address] [place] [address] 44466 XR CHEST 2 VWSon 07-15-2023 XR CHEST 2 VWS XR CHEST 2 VWS History: chest pressure Exam/Technique: PA and lateral chest Comparison: None. Findings: There is no evidence of active pulmonary or pleural disease. Cardiac and mediastinal contours are within normal limits. Left-sided surgical clips. Granulomatous changes. IMPRESSION: No active pulmonary disease. Finalized by Adrian Ervin MD on 07/15/2023 1:14 PM Normal [facility] aPTT Coag (PPP) [Time]on aPTT Coag (Bld) [Time] 36 s Normal 26-37 [facility] Comment on above: Result Comment: NEW REFERENCE RANGE Performed By: #### C BCA, 21826-0, PINR, 83215-3, CMP, 38056-1, 41972-4, THYR, 57619-0 #### [facility] ([id number]) [address] [place] [address] 49548 BASIC METABOLIC PANELon - Anion gap [Moles/Vol] 1 mmol/L MMOL/L [facility] Calcium [Mass/Vol] 8.7 mg/dL [facility] Chloride [Moles/Vol] 103 mmol/L [facility] Comment on above: Please note: Triglyc eride levels of 600mg/dL or higher may positively bias chloride results by approximately 2.1 mmol CO2 [Moles/Vol] 30 mmol/L [facility] Creatinine [Mass/Vol] 1.10 mg/dL [facility] GFR COMMENT Average GFR for 70+ years old = 75. [facility] Comment on above: Chronic Kidney disea se, GFR = <60. Kidney failure, GFR = <15. The GFR estimate is not adjusted for extreme body surface area or acute process, nor has it been validated for women or ethnic groups other than and . GFR/1.73 sq M.predicted among blacks MDRD (S/P/Bld) [Vol rate/Area] 62 mL/min/{1.73_m2} ml/min/1.73s q.m [facility] GFR/1.73 sq M.predicted among non-blacks MDRD (S/P/Bld) [Vol rate/Area] 51 mL/min/{1.73_m2} ml/min/1.73s q.m [facility] Glucose post fast [Mass/Vol] 141 mg/dL High [facility] Comment on above: NORMAL <100 mg/dL PREDIABETES 101-126 mg/dL DIABETES 126 mg/dL or higher Interpretation and review of laboratory results Abnormal [facility] Potassium [Moles/Vol] 3.8 mmol/L [facility] Sodium [Moles/Vol] 134 mmol/L Low [facility] Urea nitrogen [Mass/Vol] 30 mg/dL High [facility] CBC, EDIF, PLATELETon 2023 ABSOLUTE BASOPHIL COUNT 0.0 10*3/uL 0.0 - 0.2 10*3/uL [facility] Basophils/100 WBC (Bld) 0.3 % 0.0 - 2.0 % [facility] Differential cell count method Nom (Bld) AUTO DIFF % [facility] Eosinophils (Bld) [#/Vol] 0.0 10*3/uL 0.0 - 0.7 10*3/uL [facility] Eosinophils/100 WBC (Bld) 0.0 % 0.0 - 11.0 % [facility] Erythrocyte distribution width (RBC) [Ratio] 13.2 % 11.5 - 14.5 % [facility] Hematocrit (Bld) [Volume fraction] 33.6 % Low 36.0 - 48.0 % [facility] Hemoglobin (Bld) [Mass/Vol] 12.0 g/dL [facility] Interpretation and review of laboratory results Abnormal [facility] Lymphocytes (Bld) [#/Vol] 1.1 10*3/uL Low 1.2 - 3.4 10*3/uL [facility] Lymphocytes/100 WBC (Bld) 16.4 % Low 20.0 - 55.0 % [facility] MCH (RBC) [Entitic mass] 33.6 pg 26.0 - 35.0 PG [facility] MCHC (RBC) [Mass/Vol] 35.6 g/dL [facility] MCV (RBC) [Entitic vol] 94.2 fL [facility] Monocytes (Bld) [#/Vol] 0.3 10*3/uL 0.0 - 0.7 10*3/uL [facility] Monocytes/100 WBC (Bld) 4.3 % 0.0 - 10.0 % [facility] Neutrophils (Bld) [#/Vol] 5.2 10*3/uL 1.4 - 6.5 10*3/uL [facility] Neutrophils/100 WBC (Bld) 79.0 % High 37.0 - 75.0 % [facility] Platelet mean volume (Bld) [Entitic vol] 7.0 fL Low [facility] Platelets (Bld) [#/Vol] 226 10*3/uL 130 - 400 10*3/uL [facility] RBC (Bld) [#/Vol] 3.57 10*6/uL Low 4.0 - 5.4 10*6/uL [facility] WBC (Bld) [#/Vol] 6.6 10*3/uL 3.6 - 11.0 10*3/uL [facility] BODY FLUID CELL COUNTon Appearance (Body fld) HAZY [facility] Color (Body fld) LIGHT YELLOW [facility] RBC Auto (Body fld) [#/Vol] 3376 /CMM [facility] Specimen source Nom (Body fld) SYNOVIAL FLUID [facility] WBC (Body fld) [#/Vol] 57 10*3/uL /CMM [facility] DIFFERENTIAL, FLUIDon 2023 BASOPHILS, FLUID 2 % [facility] Comment on above: NO REFERENCE RANGE E STABLISHED Eosinophils/100 WBC (Body fld) 4 % [facility] Comment on above: NO REFERENCE RANGE E STABLISHED Lymphocytes/100 WBC (Body fld) 22 % [facility] Comment on above: NO REFERENCE RANGE E STABLISHED MESOTHELIAL CELLS, FLUID 8 % [facility] Comment on above: NO REFERENCE RANGE E STABLISHED Monocytes+Macrophage s/100 WBC Manual cnt (Body fld) 48 % [facility] Comment on above: NO REFERENCE RANGE E STABLISHED Neutrophils/100 WBC (Body fld) 16 % [facility] Comment on above: NO REFERENCE RANGE E STABLISHED [facility] REPEAT ABO/RH (D) TYPINGon 0 07-07-2023 ABO and Rh group Nom (Bld ) Positive [facility] [employer] System SCREEN: MRSA ONLY, NARES (IS OLATION SCREEN)on 07-07-2023 MRSA isol Org specific cx Ql (Nose) Negative NEGATIVE [facility] STAPHYOCOCCUS AUREUS BY PCR Negative NEGATIVE [facility] Comment on above: TESTING PERFORMED BY PCR [facility] XR Pelvis 2 Viewson 07-07-19 FINDINGS/IMPRESSION: 1. [...] or other acute bony abnormality is seen. [facility] Radiology Study observation (narrative) [employer] [facility] XR Pelvis 2 ViewsOrdered By: Parveen Mason on 07-07-2023 [employer] [facility] Work Phone: POCT EKGOrdered By: Samantha Gurrola on 06-02-2023 [facility] COBALT AND CHROMIUM,WBon Chromium (Bld) [Mass/Vol] 1.1 [employer] [facility] Comment on above: Reference range: <3. 0 Unit: ng/mL PERFORMED BY [employer] [place] (Bld) [Mass/Vol] <1.0 [facility] Comment on above: Reference range: <3. 0 Unit: ng/mL (NOTE) Chromium and cobalt analysis performed by inductively coupled plasma/mass spectrometry (ICP/MS). Reference range is for patients with qszqw-xa-pkhbc (MoM) orthopedic implants. The [place] [employer] of Hip and Knee Surgeons, the [place] Academy of Orthopaedic Surgeons, and The Hip Society, have published a consensus statement, Risk Stratification Algorithm for Management of Patients with Inpsc-pr-Mbflh Hip Arthroplasty. The algorithm is intended as an aid to orthopedic surgeons in the assessment and management of patients with Wkqit-xo-Lqejl bearings. The systematic risk stratification includes recommendations [...] developed and its performance characteristics determined by [employer]. It has not been cleared or approved by the Food and Drug Administration. [facility] C REACTIVE PROTEINon 024 CRP [Mass/Vol] 48.4 mg/L High 0 - 10 MG/L [facility] System Interpretation and review of laboratory results Abnormal [facility] [employer] SEDIMENTATION RATE, AUTOMATE Don 05-14-2023 ESR (Bld) [Velocity] 31 mm/h High [facility] Interpretation and review of laboratory results Abnormal [facility] Urinalysis - DIPSTICKon 10-03 Appearance (U) cloudy [employer] Other Bilirubin Ql (U) small [employer] Other Color (U) yellow [employer] Other Glucose Ql (U) Negative [employer] Other Hemoglobin Ql (U) small [facility] [employer] Other Ketones Ql (U) Negative [employer] Other Leukocyte esterase Test strip Ql (U) moderate [employer] Other Nitrite Ql (U) Positive [employer] Other pH (U) 5 [pH] [employer] Other Protein Ql (U) Negative [employer] Other Specific gravity (U) [Rel density] 1.010 [employer] Other Urobilinogen (U) [Mass/Vol] off chart [employer] Other Urinalysis - DIPSTICK [employer] Other Urine Cultureon 10-27-2022 Bacteria identified Cx Nom (U) ORGANISM: Escherichia coli (O:ESCCOL) Lane Count >100,000 Aerobic AUBREY Charge (NMIC56) --- [...] RESISTANT TO ALL B-LACTAM DRUGS. PERFORMED BY: [place] [address] PATHOLOGIST STUCCO APPLICATOR JOSE GUADALUPE FERGUSON M.D. [facility] Comment on above: Performed By: #### C UU #### [place] [id number] [facility] Urinalysis - DIPSTICKon 06-05 Appearance (U) cloudy [employer] Other Bilirubin Ql (U) Negative [employer] Other Color (U) pale yellow [employer] Other Glucose Ql (U) Negative [employer] Other Hemoglobin Ql (U) non hem-trace [facility] Other Ketones Ql (U) trace [employer] Other Leukocyte esterase Test strip Ql (U) moderate [employer] Other Nitrite Ql (U) Negative [employer] Other pH (U) 5 [pH] [employer] Other Protein Ql (U) trace [employer] Other Specific gravity (U) [Rel density] 1.005 [employer] Other Urobilinogen (U) [Mass/Vol] normal [employer] Other Urinalysis - DIPSTICK [employer] Other CULTURE URINEon 06-11-2022 CULTURE URINE [...] F Trimethoprim/Sulfameth oxazole <=20 S F Normal [facility] Comment on above: Performed By: #### U RCX #### [facility] [address] [place] [address] Dr. Florencio Narayanan CARDIAC AMBER ADMITon 023 CK [Catalytic activity/Vol] 44 U/L Normal 26-192 [facility] Comment on above: Performed By: #### C LILIAN LOZANO CMADM #### [facility] [address] [place] [address] Dr. Florencio Narayanan CK.MB [Mass/Vol] ng/mL Normal <=3.60 [facility] Comment on above: Performed By: #### C LILIAN LOZANO CMADM #### [facility] [address] [place] [address] Dr. Florencio Narayanan HSTROP 14.6 pg/mL Normal 4.0-51.3 [facility] Comment on above: Result Comment: CUT- OFF POINTS HAVE BEEN ESTABLISHED BASED ON THE FOURTH UNIVERSAL DEFINITIONS OF MYOCARDIAL INFARCTION. THE UPPER REFERENCE LIMIT (URL) OF TROPONIN, DEFINED THE 99TH PERCENTILE OF cTnI DISTRIBUTION IN A REFERENCE POPULATION, HAS BEEN CONFIRMED THE DECISION THRESHOLD FOR IN DIAGNOSIS. Performed By: #### C LILIAN LOZANO CMADM #### [facility] [address] [place] [address] Dr. Florencio Narayanan UMER 109 ng/mL Critically high 9-82 [facility] Comment on above: Performed By: #### C LILIAN LOZANO CMADM #### [facility] [address] [place] [address] Dr. Florencio Narayanan CBC AUTO DIFFon 06-09-2022 BASO # 0.1 103/ul Normal 0.0-0.1 [facility] Comment on above: Performed By: #### C BC #### [facility] [address] [address] [address] Florencio Narayanan Basophils/100 WBC (Bld) 0.4 % Normal 0.2-2.0 [facility] Comment on above: Performed By: #### C BC #### [facility] [address] [address] [address] Florencio Narayanan EO # 0.0 103/ul Normal 0.0-0.7 [facility] Comment on above: Performed By: #### C BC #### [facility] [address] [address] [address] Florencio Narayanan Eosinophils/100 WBC (Bld) 0.2 % Critically low 0.9-7.0 [facility] Comment on above: Performed By: #### C BC #### [facility] [address] [address] [address] Florencio Narayanan Erythrocyte distribution width (RBC) [Ratio] 12.3 % Normal 11.0-15.0 [facility] Comment on above: Performed By: #### C BC #### [facility] [address] [address] [address] Florencio Narayanan Hematocrit (Bld) [Volume fraction] 38.4 % Normal 36.0-48.0 [facility] Comment on above: Performed By: #### C BC #### [facility] [address] [address] [address] Florencio Narayanan Hemoglobin (Bld) [Mass/Vol] 12.7 g/dL Normal 12.0-16.0 [facility] Comment on above: Performed By: #### C BC #### [facility] [address] [address] [address] Florencio Narayanan IG # 0.06 10e3/ul Critically high 0.00-0.03 [facility] Comment on above: Performed By: #### C BC #### [facility] [address] [address] [address] Florencio Narayanan IG % 0.5 % Normal 0.0-0.5 [facility] Comment on above: Performed By: #### C BC #### [facility] [address] [place] [address] Dr. Florencio Narayanan LYMPH # 1.0 103/ul Critically low 1.2-3.8 [facility] Comment on above: Performed By: #### C BC #### [facility] [address] [place] [address] Dr. Florencio Narayanan Lymphocytes/100 WBC (Bld) 8.4 % Critically low 20.5-60.0 [facility] Comment on above: Performed By: #### C BC #### [facility] [address] [place] [address] Dr. Florencio Narayanan MANUAL DIFF REQ NO Normal [facility] Comment on above: Performed By: #### C BC #### [facility] [address] [place] [address] Dr. Florencio Narayanan MCH (RBC) [Entitic mass] 32.4 pg Normal 26.7-34.0 [facility] Comment on above: Performed By: #### C BC #### [facility] [address] [place] [address] Dr. Florencio Narayanan MCHC (RBC) [Mass/Vol] 33.1 g/dL Normal 29.9-35.2 [facility] Comment on above: Performed By: #### C BC #### [facility] [address] [place] [address] Dr. Florencio Narayanan MCV (RBC) [Entitic vol] 98.0 fL Normal 81.0-99.0 [facility] Comment on above: Performed By: #### C BC #### [facility] [address] [place] [address] Dr. Florencio Narayanan MONO # 1.6 103/ul Critically high 0.3-0.8 [facility] Comment on above: Performed By: #### C BC #### [facility] [address] [place] [address] Dr. Florencio Narayanan Monocytes/100 WBC (Bld) 13.1 % Critically high 1.7-12.0 [facility] Comment on above: Performed By: #### C BC #### [facility] [address] [address] [address] Florencio Narayanan NEUT # 9.5 103/ul Critically high 1.4-6.5 [facility] Comment on above: Performed By: #### C BC #### [facility] [address] [address] [address] Florencio Narayanan Neutrophils/100 WBC (Bld) 77.4 % Critically high 43.0-75.0 [facility] Comment on above: Performed By: #### C BC #### [facility] [address] [address] [address] Florencio Narayanan Platelet mean volume (Bld) [Entitic vol] 9.4 fL Critically low 9.5-13.5 [facility] Comment on above: Performed By: #### C BC #### [facility] [address] [address] [address] Florencio Narayanan PLT 140 103/ul Critically low 150-450 [facility] Comment on above: Performed By: #### C BC #### [facility] [address] [address] [address] Florencio Narayanan RBC 3.92 106/ul Critically low 4.20-5.40 [facility] Comment on above: Performed By: #### C BC #### [facility] [address] [address] [address] Florencio Narayanan WBC 12.2 103/ul Critically high 4.0-11.0 [facility] Comment on above: Performed By: #### C BC #### [facility] [address] [place] [address] STROKE HEAD WOon [...] LUANA VILLAFANA Date: 2022-06-09 12:24 Normal [facility] Covid-19 PCR (CVDTBH)on SARS-CoV-2 (COVID-19) RNA CHRISTOPHER+probe Ql (Unsp spec) Not detected Normal NOT DETECTED [facility] Comment on above: Result Comment: When [...] for this test is supported by the [place] of Health and Human Service's declaration that [...] used). Performed By: #### C VDTBH #### [facility] [address] [place] [address] [id number] [address] Florencio Narayanan ER URINE PROFILEon 3 Bilirubin Ql (U) Negative Normal NEGATIVE [facility] Comment on above: Performed By: #### E ADIEL PIZANO #### [facility] [address] [place] [address] [address] [address] Florencio Narayanan Clarity (U) CLEAR Normal CLEAR [facility] Comment on above: Performed By: #### E ADIEL PIZANO #### [facility] [address] [place] [address] Dr. Florencio Narayanan Color (U) LT. YELLOW Normal YELLOW [facility] Comment on above: Performed By: #### Malini PIZANO UMICRO #### [facility] [address] [place] [address] Dr. Florencio CONLEY A micrscopic examination will be performed if indicated. Normal [facility] Comment on above: Performed By: #### Malini PIZANO UMICRO #### [facility] [address] [place] [address] Dr. Florencio Narayanan Glucose Ql (U) Negative Normal NEGATIVE [facility] Comment on above: Performed By: #### Malini PIZANO UMICRO #### [facility] [address] [place] [address] Dr. Florencio Narayanan Hemoglobin Ql (U) LARGE Abnormal NEGATIVE [facility] Comment on above: Performed By: #### Malini PIZANO UMICRO #### [facility] [address] [place] [address] Dr. Florencio Narayanan Ketones Ql (U) TRACE Abnormal NEGATIVE [facility] Comment on above: Performed By: #### Malini PIZANO UMICRO #### [facility] [address] [place] [address] Dr. Florencio Narayanan LEUKOCYTES LARGE Abnormal NEGATIVE [facility] Comment on above: Performed By: #### Malini PIZANO UMICRO #### [facility] [address] [place] [address] Dr. Florencio Narayanan Nitrite Ql (U) Positive Abnormal NEGATIVE [facility] Comment on above: Performed By: #### Malini PIZANO UMICRO #### [facility] [address] [place] [address] Dr. Florencio Narayanan pH (U) 5.5 [pH] Normal 5-9 [facility] Comment on above: Performed By: #### Malini PIZANO UMICRO #### [facility] [address] [place] [address] Dr. Florencio Narayanan SPEC GRAVITY 1.010 Normal 1.005-<=1.[address] [place] [address] Comment on above: Performed By: #### ADIEL LE #### [facility] [address] [place] [address] Dr. Florencio Narayanan UA PROTEIN TRACE Normal NEGATIVE/ TRACE [facility] Comment on above: Performed By: #### LIYAH LERO #### [facility] [address] [place] [address] Dr. Florencio Narayanan UR MICRO IND INDICATED Normal [facility] Comment on above: Performed By: #### LIYAH LERO #### [facility] [address] [place] [address] Dr. Florencio Narayanan Urobilinogen Qn (U) 0.2 {Zenia'U}/dL Normal 0.2 - 1. 0 [facility] Comment on above: Performed By: #### ADIEL LE #### [facility] [address] [place] [address] Dr. Florencio Narayanan LIPASEon 06-09-2022 Lipase [Catalytic activity/Vol] 68.0 U/L Critically low 73.0-393.0 [facility] Comment on above: Performed By: #### C BLAKE LIPA, CMADM #### [facility] [address] [place] [address] Dr. Florencio Narayanan PROF 14(COMP METB)on 023 Albumin [Mass/Vol] 2.5 g/dL Critically low 3.4-5.[address] [facility] Comment on above: Performed By: #### C MP, LIPA, CMADM #### [facility] [address] [place] [address] Dr. Florencio Narayanan Albumin/Globulin [Mass ratio] 0.6 {ratio} Normal [facility] Comment on above: Performed By: #### C MP LIPA, CMADM #### [facility] [address] [place] [address] Dr. Florencio Narayanan ALP [Catalytic activity/Vol] 150 U/L Critically high 46-116 [facility] Comment on above: Performed By: #### C MP, LIPA, CMADM #### [facility] [address] [address] [address] Florencio Narayanan ALT [Catalytic activity/Vol] 27 U/L Normal 14-59 [facility] Comment on above: Performed By: #### C MP, LIPA, CMADM #### [facility] [address] [address] [address] Florencio Narayanan Anion gap [Moles/Vol] 12.8 mmol/L Normal [facility] Comment on above: Performed By: #### C MP, LIPA, CMADM #### [facility] [address] [address] [address] Florencio Narayanan AST [Catalytic activity/Vol] 31 U/L Normal 15-37 [facility] Comment on above: Performed By: #### C MP, LIPA, CMADM #### [facility] [address] [address] [address] Florencio Narayanan Bilirubin [Mass/Vol] 1.1 mg/dL Critically high 0.2-1.0 [facility] Comment on above: Performed By: #### C MP, LIPA, CMADM #### [facility] [address] [address] [address] Florencio Narayanan Calcium [Mass/Vol] 9.1 mg/dL Normal 8.5-10.1 [facility] Comment on above: Performed By: #### C MP, LIPA, CMADM #### [facility] [address] [address] [address] Florencio Narayanan Chloride [Moles/Vol] 95 mmol/L Critically low 98-107 [facility] Comment on above: Performed By: #### C MP, LIPA, CMADM #### [facility] [address] [address] [address] Florencio Narayanan CO2 [Moles/Vol] 29.4 mmol/L Normal 21.0-32.0 [facility] Comment on above: Performed By: #### C MP, LIPA, CMADM #### [facility] [address] [address] [address] Florencio Narayanan Creatinine [Mass/Vol] 1.34 mg/dL Critically high 0.55-1.02 [facility] Comment on above: Performed By: #### C MP, LIPA, CMADM #### [facility] [address] [place] [address] Dr. Florencio Narayanan EGFR-AF LEBANESE 47 mL/min/1.73m2 Critically low >=60 [facility] Comment on above: Performed By: #### C MP, LIPA, CMADM #### [facility] [address] [place] [address] Dr. Florencio Narayanan EGFR-NON AF LEBANESE 39 mL/min/1.73m2 Critically low >=60 [facility] Comment on above: Performed By: #### C MP, LIPA, CMADM #### [facility] [address] [place] [address] Dr. Florencio Narayanan Globulin (S) [Mass/Vol] 4.3 g/dL Normal [facility] Comment on above: Performed By: #### C MP, LIPA, CMADM #### [facility] [address] [place] [address] Dr. Florencio Narayanan Glucose [Mass/Vol] 118 mg/dL Critically high 74-106 [facility] Comment on above: Performed By: #### C MP, LIPA, CMADM #### [facility] [address] [place] [address] Dr. Florencio Narayanan Potassium [Moles/Vol] 3.2 mmol/L Critically low 3.5-5.1 [facility] Comment on above: Performed By: #### C MP, LIPA, CMADM #### [facility] [address] [place] [address] Dr. Florencio Narayanan Protein [Mass/Vol] 6.8 g/dL Normal 6.4-8.2 [facility] Comment on above: Performed By: #### C MP, LIPA, CMADM #### [facility] [address] [place] [address] Dr. Florencio Narayanan Sodium [Moles/Vol] 134 mmol/L Critically low 136-145 [facility] Comment on above: Performed By: #### C MP, LIPA, CMADM #### [facility] [address] [place] [address] Dr. Florencio Narayanan Urea nitrogen [Mass/Vol] 29.0 mg/dL Critically high 7.0-18.0 [facility] Comment on above: Performed By: #### C LILIAN LOZANO, CMADM #### [facility] [address] [place] [address] Dr. Florencio Narayanan Urea nitrogen/Creatinine [Mass ratio] 21.6 mg/mg Normal [facility] Comment on above: Performed By: #### C LILIAN LOZANO, CMADM #### [facility] [address] [place] [address] Dr. Florencio Narayanan URINE MICROSCOPIC ONLYon BACTERIA SMALL Abnormal NONE SEEN [facility] Comment on above: Performed By: #### Malini PIZANO UMICRO #### [facility] [address] [place] [address] Dr. Florencio Narayanan Bacteria identified Cx Nom (U) INDICATED Normal [facility] Comment on above: Performed By: #### Malini PIZANO UMICRO #### [facility] [address] [place] [address] Dr. Florencio Narayanan CAST NONE SEEN Normal NONE SEEN [facility] Comment on above: Performed By: #### Malini PIZANO UMICRO #### [facility] [address] [place] [address] Dr. Florencio Narayanan Crystals LM Nom (Urine sed) NONE SEEN Normal NONE SEEN [facility] Comment on above: Performed By: #### Malini PIZANO UMICRO #### [facility] [address] [place] [address] Dr. Florencio Narayanan Epithelial cells LM Ql (Urine sed) FEW Abnormal NONE SEEN /RARE [facility] Comment on above: Performed By: #### Malini PIZANO, UMICRO #### [facility] [address] [place] [address] Dr. Florencio Narayanan MUCOUS NONE SEEN Normal NONE SEEN [facility] Comment on above: Performed By: #### Malini PIZANO UMICRO #### [facility] [address] [place] [address] Dr. Florencio Narayanan RBC 2-5 Abnormal 0-2 [facility] Comment on above: Performed By: #### ADIEL LE #### [facility] [address] [place] [address] Dr. Florencio Narayanan WBC 10-20 Abnormal NONE SEEN [facility] Comment on above: Performed By: #### E ADIEL PIZANO #### [facility] [address] [place] [address] Dr. Florencio Narayanan XR CHEST 2 Von [...] JOAQUÍN ATKINS Date: 2022-06-09 12:24 Normal [facility] CULTURE URINEon 04-16-2022 CULTURE URINE Isolate [...] Trimethoprim/Sulfameth oxazole >=320 R F Normal [facility] Comment on above: Performed By: #### C BC #### [facility] [address] [place] [address] Dr. Florencio Narayanan MRI Hip w/o Righton [...] by Ramon Ambrocio on 09/11/2021 1545 Normal [facility] Frame Coverer Consult Reporton 03-14-2020 Consult Report [facility] CONSULTATION BETTIE BURNS 3ET [id number] OBSV ANABEL WATKINS MD [id number] REFERRING PHYSICIAN: CONSULTING PHYSICIAN: Renetta Almanzar MD DATE OF CONSULTATION: 03/11/2020 REASON: A near syncopal event in a 74-year-old female, with a history of atrial fibrillation, previous cardiac ablation, who was the time of evaluation noted to have a positive test for COVID. HISTORY OF PRESENT ILLNESS: Mrs. Burns is a very pleasant, alert and oriented -ywis-dko female who was brought into the emergency [...] quarantine. Many thanks. RENETTA ALMANZAR MD BD/MedQ /[id number] Normal [facility] BASICMETAon 03-11-2020 GFR AA >60 Normal [facility] Comment on above: Result Comment: Afri can Anguillan GFR Calc Medical judgement is necessary to [...] for drug dosing. Performed By: #### 1 95945, 022292, 935512 ####[facility] Ctdixmfl39620 [place] [phone] Medical Director: Fahad Cast MD GFR/1.73 sq M predicted among non-blacks MDRD (S/P/Bld) [Vol rate/Area] 56 mL/min/1.73m? Normal [facility] Comment on above: Result [...] for drug dosing. Performed By: #### 1 81038, 705828, 455341 ####[facility] Iyzyztiw73489 [place], [place] [id number]) [phone] Director: Fahad Cast MD Osmolality [Osmolality] 291 mOsm/kg Normal 275-295 [facility] Comment on above: Performed By: #### 1 96203, 344212, 052169 ####[facility] Wdfolryn06748 [place] [address] Medical Director: Fahad Cast MD Urea nitrogen/Creatinine [Mass ratio] 24.5 mg/mg Normal [facility] Comment on above: Performed By: #### 1 90608, 122527, 111023 ####[facility] Aggshkjm04272 [place] [address] Medical Director: Fahad Cast MD Calcium [Mass/Vol] 9.3 mg/dL Normal 8.5-10.5 [facility] Comment on above: Performed By: #### 1 91986, 983469, 829854 ####[facility] [address] [place] [address] Medical Director: Fahad Cast MD Chloride [Moles/Vol] 108 mmol/L Normal 100-109 [facility] Comment on above: Performed By: #### 1 86092, 790041, 910623 ####[facility] [address] [place] [address] Medical Director: Fahad Cast MD CO2, venous 28.9 mmol/L Normal 21.0-32.0 [facility] Comment on above: Performed By: #### 1 82890, 251373, 443415 ####[facility] Ojcgdosi82670 [place] [address] Medical Director: Fahad Cast MD Creatinine [Mass/Vol] 1.0 mg/dL Normal 0.6-1.0 [facility] Comment on above: Performed By: #### 1 77778, 948107, 901572 ####[facility] Bmrazuds16898 [place], [place] [phone]) [phone] Director: Fahad Cast MD Glucose [Mass/Vol] 98 mg/dL Normal 72-100 [facility] Comment on above: Result Comment: Sharon puncture should occur prior to sulfasalazine administration due to the potential for falsely depressed results. Venipuncture should occur prior to sulfapyridine administration due to the potential falsely elevated results. Baseline assay values before administration of sulfasalazine and sulfapyridine therapy would not be affected. Performed By: #### 1 53261, 767572, 907180 ####[facility] Hqqimwpp94909 [place] [address] Medical Director: Fahad Cast MD Potassium [Moles/Vol] 4.2 mmol/L Normal 3.5-5.1 [facility] Comment on above: Performed By: #### 1 70089, 943517, 113069 ####[facility] Ctehhlvy17658 [place] [address] Medical Director: Fahad Cast MD Sodium [Moles/Vol] 144 mmol/L Normal 135-145 [facility] Comment on above: Performed By: #### 1 74758, 676643, 599361 ####[facility] Shfqihxs89877 [place] [address] Medical Director: Fahad Cast MD Urea nitrogen [Mass/Vol] 24 mg/dL High 10-20 [facility] Comment on above: Performed By: #### 1 36382, 079463, 703155 ####[facility] Tvoatfeu17900 [place] [address] Medical Director: Fahad Cast MD CBCNDon 03-11-2020 Erythrocyte distribution width (RBC) [Ratio] 14.4 % Normal 11.5-14.5 [facility] Comment on above: Performed By: #### 1 24624, 290739, 844696 #### [facility] [address] [place] [address] Manager Outpatient: Fahad Cast MD Hematocrit (Bld) [Volume fraction] 33.9 % Low 36.0-46.0 [facility] Comment on above: Performed By: #### 1 49952, 029793, 585864 #### [facility] [address] [place], [place] [address] Manager Outpatient: Fahad Cast MD Hemoglobin (Bld) [Mass/Vol] 11.2 g/dL Low 12.0-16.0 [facility] Comment on above: Performed By: #### 1 16497, 160952, 049164 #### [facility] [address] [place], [place] [address] Manager Outpatient: Fahad Cast MD MCH (RBC) [Entitic mass] 29.5 pg Normal 27.0-34.0 [facility] Comment on above: Performed By: #### 1 85088, 081824, 705654 #### [facility] [address] [place], [place] [address] Manager Outpatient: Fahad Cast MD MCHC (RBC) [Mass/Vol] 33.0 g/dL Normal 32.0-37.0 [facility] Comment on above: Performed By: #### 1 26972, 189316, 087362 #### [facility] [address] [place], [place] [address] Manager Outpatient: Fahad Cast MD MCV (RBC) [Entitic vol] 89.5 fL Normal 80.0-100.0 [facility] Comment on above: Performed By: #### 1 77269, 866138, 800255 #### [facility] [address] [place], [place] [address] Manager Outpatient: Fahad Cast MD Platelet mean volume (Bld) [Entitic vol] 6.8 fL Low 7.4-10.4 [facility] Comment on above: Performed By: #### 1 24930, 972043, 209870 #### [facility] [address] [place] [address] Manager Outpatient: Fahad Cast MD Platelets (Bld) [#/Vol] 232 x1000 Normal 150-450 [facility] Comment on above: Performed By: #### 1 09609, 970177, 091038 #### [facility] [address] [place] [address] Manager Outpatient: Fahad Cast MD RBC (Bld) [#/Vol] 3.79 x10 Low 4.20-5.40 [facility] Comment on above: Result Comment: Note : RBC morphology is normal unless otherwise stated. Evaluation performed only if differential is requested. Performed By: #### 1 83319, 446072, 459096 #### [facility] [address] [place] [address] Manager Outpatient: Fahad Cast MD WBC (Bld) [#/Vol] 5.8 10*3/uL Normal [facility] Comment on above: Performed By: #### 1 80516, 333860, 644399 #### [facility] [address] [place] [address] Manager Outpatient: Fahad Cast MD WBC (Bld) [#/Vol] 5.8 x10 Normal 4.5-11.0 [facility] Comment on above: Performed By: #### 1 44286, 048257, 824925 #### [facility] [address] [place] [address] Manager Outpatient: Fahad Cast MD D Dimer HSon 03-11-2020 D Dimer HS 821 ng/mL FEU High <=499 [facility] Comment on above: Result Comment: Excl usion of PE and DVT The D Dimer HS assay is reported in ng/ml Fibrinogen Equivalent Units (FEU). Per sewer head?s instructions for use, a value less than 500ng/ml (FEU) may help to exclude DVT and /or PE in outpatients when the assay is used with a clinical pretest probability assessment. D-Dimer used for DIC Screens Assay results should be used with other information, including the clinical context in forming a diagnosis. Performed By: #### C [id number] ####[facility] Euhdfsfk49571 [place] [address] Medical Director: Fahad Cast MD LDHon 03-11-2020 LDH 198 unit/L Normal 84-246 [facility] Comment on above: Performed By: #### 1 28028, 769282, 471307 #### [facility] [address] [place], [place] [phone] Manager Outpatient: Fahad Cast MD Progress Note-Physicianon Progress Note-Physician [...] medications. 6) DVT ppx: On Eliquis Normal [facility] Utilization Review Noteon Utilization Review Note ID Consult pending DISCHARGE WRITTEN AND PLANNED. Normal [facility] AUTO DIFFon 03-10-2020 Basophils (Bld) [#/Vol] 0.05 x1000 Normal 0.00-0.20 [facility] Comment on above: Performed By: #### 1 81248, 047295, 1831151 ####[facility] Obwxuryq87832 [place] [address] Medical Director: Fahad Cast MD Basos % 0.6 % Normal [facility] Comment on above: Performed By: #### 1 97107, 812172, 6186183 ####[facility] Mmfnvchl82281 [place] [address] Medical Director: Fahad Cast MD Eos Count 0.15 x1000 Normal 0.00-0.50 [facility] Comment on above: Performed By: #### 1 52897, 717203, 5624062 ####[facility] Gguyxrub47556 [place] [address] Medical Director: Fahad Cast MD Eosinophils/100 WBC (Bld) 1.8 % Normal [facility] Comment on above: Performed By: #### 1 13089, 997422, 0212039 ####[facility] Abqmutjv45788 [place] [address] Medical Director: Fahad Cast MD Lymphocytes (Bld) [#/Vol] 1.05 x1000 Low 1.20-4.80 [facility] Comment on above: Performed By: #### 1 42643, 259853, 2878386 ####[facility] [address] [place], [place] [address]30 Medical Director: Fahad Cast MD Lymphocytes/100 WBC (Bld) 12.7 % Normal [facility] Comment on above: Performed By: #### 1 93029, 734458, 9935454 ####[facility] [address] [place] [address] Medical Director: Fahad Cast MD [place] Count 0.70 x1000 Normal 0.10-1.00 [facility] Comment on above: Performed By: #### 1 21373, 933035, 3410045 ####[facility] Ez[address] [place] [address] Medical Director: Fahad Cast MD Monocytes/100 WBC (Bld) 8.4 % Normal [facility] Comment on above: Performed By: #### 1 14326, 496589, 0737657 ####[facility] [address] [place] [address] Medical Director: Fahad Cast MD Neutrophils (Bld) [#/Vol] 6.32 x1000 Normal 1.40-8.80 [facility] Comment on above: Performed By: #### 1 78579, 801369, 6960882 ####[facility] Bxgmrklh70079 [place] [address] Medical Director: Fahad Cast MD Neutrophils/100 WBC (Bld) 76.4 % Normal [facility] Comment on above: Performed By: #### 1 55977, 942837, 3347170 ####[facility] Kcellyrh66969 [place] [address] Medical Director: Fahad Cast MD COMPMETAon 03-10-2020 Albumin [Mass/Vol] 3.4 g/dL Normal 3.4-5.0 [facility] Comment on above: Performed By: #### 1 12715, 434502, 2423926 ####[facility] Qzurrbng30831 [place] [address] Medical Director: Fahad Cast MD Albumin/Globulin [Mass ratio] 0.8 {ratio} Normal [facility] Comment on above: Performed By: #### 1 60453, 267734, 1498370 ####[facility] Hwcjnnbj15585 [place] [address] Medical Director: Fahad Cast MD Alk Phos 71 unit/L Normal 45-117 [facility] Comment on above: Performed By: #### 1 38661, 862544, 8137632 ####[facility] Syjvisys90841 [place] [address] Medical Director: Fahad Cast MD Bilirubin [Mass/Vol] 0.37 mg/dL Normal 0.20-1.00 [facility] Comment on above: Result Comment: Use of this assay is not recommended for patients undergoing treatment with eltrombopag due to the potential for falsely elevated results. Performed By: #### 1 32811, 213820, 3489177 ####[facility] Urpsmihi86962 [place] [address] Medical Director: Fahad Cast MD Calcium [Mass/Vol] 9.4 mg/dL Normal 8.5-10.5 [facility] Comment on above: Performed By: #### 1 81534, 122032, 1043276 ####[facility] Pmupkwtn46614 [place] [address] Medical Director: Fahad Cast MD Chloride [Moles/Vol] 108 mmol/L Normal 100-109 [facility] Comment on above: Performed By: #### 1 23046, 131656, 7835827 ####[facility] Taxztonf85505 [place] [address] Medical Director: Fahad Cast MD CO2, venous 28.2 mmol/L Normal 21.0-32.0 [facility] Comment on above: Performed By: #### 1 12447, 006658, 9813685 ####[facility] Zoifkfxn82534 [place] [address] Medical Director: Fahad Cast MD Creatinine [Mass/Vol] 1.2 mg/dL High 0.6-1.0 [facility] Comment on above: Performed By: #### 1 05489, 035469, 3801928 ####[facility] Exghcijc16092 [place] [address] Medical Director: Fahad Cast MD GFR AA 53 Normal [facility] Comment on above: Result Comment: Afri can Anguillan GFR Calc Medical judgement is necessary to [...] for drug dosing. Performed By: #### 1 63656, 664030, 6922224 ####[facility] Fhiufpvo73381 [place] [address] Medical Director: Fahad Cast MD GFR/1.73 sq M predicted among non-blacks MDRD (S/P/Bld) [Vol rate/Area] 44 mL/min/1.73m? Normal [facility] Comment on above: Result [...] for drug dosing. Performed By: #### 1 77423, 057607, 0550570 ####[facility] Dfdxoptc52754 [place] [address] Medical Director: Fahad Cast MD Globulin (S) [Mass/Vol] 4.0 g/dL Normal [facility] Comment on above: Performed By: #### 1 28364, 975468, 1037897 ####[facility] Bezlcbcw40382 [place] [address]3530 Medical Director: Fahad Cast MD Glucose [Mass/Vol] 143 mg/dL High 72-100 [facility] Comment on above: Result Comment: Sharon puncture should occur prior to sulfasalazine administration due to the potential for falsely depressed results. Venipuncture should occur prior to sulfapyridine administration due to the potential falsely elevated results. Baseline assay values before administration of sulfasalazine and sulfapyridine therapy would not be affected. Performed By: #### 1 30029, 239542, 7417963 ####[facility] Zcnhjixc85668 [place] [address] Medical Director: Fahad Cast MD GOT 18 unit/L Normal 15-37 [facility] Comment on above: Result Comment: Sharon puncture should occur prior to sulfasalazine and/or sulfapyridine administration due to the potential for falsely depressed results. Baseline assay values before administration of sulfasalazine and sulfapyridine therapy would not be affected. Performed By: #### 1 73540, 039080, 0345806 ####[facility] Vxwzcnek49329 [place], [place] [id number]) [phone] Director: Fahad Cast MD GPT 19 unit/L Normal 13-56 [facility] Comment on above: Result Comment: Sharon puncture should occur prior to sulfasalazine and/or sulfapyridine administration due to the potential for falsely depressed results. Baseline assay values before administration of sulfasalazine and sulfapyridine therapy would not be affected. Performed By: #### 1 05837, 514125, 7706496 ####[facility] Bxspzpnc58981 [place], [place] [address]) [phone] Director: Fahad Cast MD Osmolality [Osmolality] 293 mOsm/kg Normal 275-295 [facility] Comment on above: Performed By: #### 1 49137, 983882, 1369461 ####[facility] Hnesokdk08348 [place], [place] [address]) [phone] Director: Fahad Cast MD Potassium [Moles/Vol] 4.0 mmol/L Normal 3.5-5.1 [facility] Comment on above: Performed By: #### 1 13420, 962899, 8450508 ####[facility] Aefcjugc03379 [place], [place] [address]) [phone] Director: Fahad Cast MD Protein [Mass/Vol] 7.4 g/dL Normal 6.0-8.5 [facility] Comment on above: Performed By: #### 1 27139, 773800, 4936287 ####[facility] Galuojvz84819 [place], [place] [address]40) [phone] Director: Fahad Cast MD Sodium [Moles/Vol] 142 mmol/L Normal 135-145 [facility] Comment on above: Performed By: #### 1 65615, 465860, 8421503 ####[facility] Qzfobbrw96805 [place], [place] [address]) [phone] Director: Fahad Cast MD Urea nitrogen [Mass/Vol] 32 mg/dL High 10-20 [facility] Comment on above: Performed By: #### 1 84633, 910099, 6347002 ####[facility] Pckflaot50683 [place] [address] Medical Director: Fahad Cast MD Urea nitrogen/Creatinine [Mass ratio] 26.7 mg/mg Normal [facility] Comment on above: Performed By: #### 1 37260, 037624, 7831045 ####[facility] Xdoeafwt34893 [place] [address] Medical Director: Fahad Cast MD COVID-19 by PCR SWEDon 03-10 COVID-19 by PCR SWED Positive Abnormal [facility] Comment on above: Result Comment: CALL DEANNA CHRISTIE 03/10/2020 18:23:22 EST BY SHF; RBR Performed By: #### C [id number] ####[facility] Pcnzgbsx11212 [place] [address] Medical Director: Fahad Cast MD CRP QUANTon 03-10-2020 C-Reactive Protein, Quantitative 0.8 mg/dL High 0.0-0.3 [facility] Comment on above: Performed By: #### 1 15569, [id number], [id number], [id number] #### [facility] Services [address] [place] [address] Manager Outpatient: Fahad Cast MD CT ABD PELVIS W [...] by: Oni Liu MD 03/10/2020 3:50 PM ELECTRIC APPLIANCE INSTALLER Technologist: LIEN BLANCA Dictated By: ONI LIU MD Signed By: ONI LIU MD Signed Out: 03/10/20 16:50:49 Normal [facility] D Dimer HSon 03-10-2020 D Dimer HS 264 ng/mL FEU Normal <=499 [facility] Comment on above: Result Comment: Excl usion of PE and DVT The D Dimer HS assay is reported in ng/ml Fibrinogen Equivalent Units (FEU). Per sewer head?s instructions for use, a value less than 500ng/ml (FEU) may help to exclude DVT and /or PE in outpatients when the assay is used with a clinical pretest probability assessment. D-Dimer used for DIC Screens Assay results should be used with other information, including the clinical context in forming a diagnosis. Performed By: #### 1 85046, [id number], [id number], [id number] #### [facility] [address] [place] [address] Manager Outpatient: Fahad Cast MD ED Physician Reporton 2019 [...] Line Saline Flush: 3 mL, IV Push, [id number] Documented Medications Documented Eliquis 5 mg oral [...] Interp, Sinus rhythm with first-degree AV block, MA interval 256, QT/QTc/433, incomplete right bundle branch [...] /100WBC NA Lymph % 12.7 % NA [place] % 8.4 % NA Neutrophil % 76.4 % NA Eosin % 1.8 % NA Basos % 0.6 % NA Lymph Count 1.05 x1000 LOW [place] Count 0.70 x1000 NORMAL Neutrophil Count (ANC) [...] by: Monae Hernandez MD 03/10/2020 1:[address] [facility] Signed By: MONAE HERNANDEZ MD CT [...] by: Oni Liu MD 03/10/2020 3:50 PM ELECTRIC APPLIANCE INSTALLER Signed By: ONI LIU MD . Notes: [...] Course: improving. Impression and Plan Diagnosis Syncope (BSY00-HU R55, Working, Medical) Plan Condition: Stable. Disposition: [...] accurately records my words and actions.. Normal [facility] ED Pre-Arrival Formon 2019 ED Pre-Arrival Form Pre-Arrival Summary Name: STR, Current Date: 03/10/2020 13:52:19 EST Gender: Date of : Age: Pre-Arrival Type: EMS ETA: 03/10/2020 14:15:00 EST Primary Care Physician: Presenting Problem: Pre-Arrival User: Neil Vázquez RN Referring Source: Location: 1 [facility] Emergency Department [address] [place] [address] Notes: Vital Signs: Doctor Call Back: DNR Status: Miscellaneous Issues: Normal [facility] ED Progress Noteon 0 ED Progress Note report not put in by previous rn pt here for syncopal episode after diarrhea episode pt has hx of afib. pt covid+ report called to neil silva will come get pt Normal [facility] FERRITINon 03-10-2020 Ferritin [Mass/Vol] 32 ng/mL Normal 8-252 [facility] Comment on above: Performed By: #### 1 87267, [id number], [id number], [id number] #### [facility] [address] [place] [address] Manager Outpatient: Fahad aCst MD HEMOon 03-10-2020 DIFF? No Normal [facility] Comment on above: Performed By: #### 1 47589, 925613, 8549318 ####[facility] Wgmphxde02562 [place], [place] [address]) [phone] Director: Fahad Cast MD Erythrocyte distribution width (RBC) [Ratio] 14.5 % Normal 11.5-14.5 [facility] Comment on above: Performed By: #### 1 76937, 337875, 7352265 ####[facility] Oraavoke66242 [place], [place] [address]) [phone] Director: Fahad Cast MD Hematocrit (Bld) [Volume fraction] 35.8 % Low 36.0-46.0 [facility] Comment on above: Performed By: #### 1 95989, 613788, 5690247 ####[facility] Jpyysbmz84766 [place], [place] [address]) [phone] Director: Fahad Cast MD Hemoglobin (Bld) [Mass/Vol] 11.7 g/dL Low 12.0-16.0 [facility] Comment on above: Performed By: #### 1 07902, 666827, 5001102 ####[facility] Ylrgfwfw47142 [place], [place] [address]) [phone] Director: Fahad Cast MD MCH (RBC) [Entitic mass] 29.4 pg Normal 27.0-34.0 [facility] Comment on above: Performed By: #### 1 80986, 382303, 8321472 ####[facility] Jqnhspsv56343 [place] [address] Medical Director: Fhaad Cast MD MCHC (RBC) [Mass/Vol] 32.7 g/dL Normal 32.0-37.0 [facility] Comment on above: Performed By: #### 1 83544, 172950, 8975862 ####[facility] Ruzdeiyh97279 [place] [address] Medical Director: Fahad Cast MD MCV (RBC) [Entitic vol] 89.8 fL Normal 80.0-100.0 [facility] Comment on above: Performed By: #### 1 66036, 140846, 1586126 ####[facility] Sbxnjwpt86244 [place] [address] Medical Director: Fahad Cast MD Nucleated RBC (Bld) [#/Vol] 0 /100WBC Normal [facility] Comment on above: Performed By: #### 1 74071, 792592, 1181110 ####[facility] Yopagcgr39836 [place] [address] Medical Director: Fahad Cast MD Platelet mean volume (Bld) [Entitic vol] 6.7 fL Low 7.4-10.4 [facility] Comment on above: Performed By: #### 1 [id number], [id number] ####[facility] [id number] [place] [address] Medical Director: Fahad Cast MD Platelets (Bld) [#/Vol] 252 x1000 Normal 150-450 [facility] Comment on above: Performed By: #### 1 [id number], [id number] ####[facility] [id number] [place] [address] Medical Director: Fahad Cast MD RBC (Bld) [#/Vol] 3.99 x10 Low 4.20-5.40 [facility] Comment on above: Result Comment: Note : RBC morphology is normal unless otherwise stated. Evaluation performed only if differential is requested. Performed By: #### 1 [id number], [id number], [id number] ####[facility] [id number] [place] [address] Medical Director: Fahad Cast MD WBC (Bld) [#/Vol] 8.3 10*3/uL Normal [facility] Comment on above: Performed By: #### 1 [id number], [id number] ####[facility] [id number] [place] [address] Medical Director: Fahad Cast MD WBC (Bld) [#/Vol] 8.3 x10 Normal 4.5-11.0 [facility] Comment on above: Performed By: #### 1 [id number], [id number], [id number] ####[facility] [id number] [place] [address] Medical Director: Fahad Cast MD History and [...] ppx: On Eliquis OT MESA on Normal [facility] LACTATEon 03-10-2020 Lactate [Moles/Vol] 1.8 mmol/L Normal 0.4-2.0 [facility] Comment on above: Performed By: #### 1 [id number] #### [facility] Services [id number] [place] [address] Manager Outpatient: Fahad Cast MD LIPon 03-10-2020 Lipase [Catalytic activity/Vol] 135 unit/L Normal 73-393 [facility] Comment on above: Performed By: #### 1 [id number], [id number], [id number] ####[facility] [id number] [place] [address] Medical Director: Fahad Cast MD MG LEVELon 03-10-2020 Magnesium [Mass/Vol] 1.9 mg/dL Normal 1.6-2.6 [facility] Comment on above: Performed By: #### 1 79455, [id number], [id number] ####[facility] [id number] [place] [address] Medical Director: Fahad Cast MD PCTon 03-10-2020 Procalcitonin <0.05 Normal [facility] Comment on above: Result [...] or septic shock. Performed By: #### 1 [id number], [id number] #### [facility] Services [address] [place] [address] Manager Outpatient: Fahad Cast MD TROPONINon 03-10-2020 Troponin I.cardiac [Mass/Vol] ng/mL Normal 0.000-0.099 [facility] Comment on above: Result Comment: This test is a quantitative determination of cardiac troponin I. High levels of serum biotin may interfere with this test. Performed By: #### 1 [id number], [id number], [id number] ####[facility] [id number] [place] [id number] Medical Director: Fahad Cast MD XR CHEST [...] by: Monae Hernandez MD 03/10/2020 1:58 PM [employer]LECT[employer]PLIANCE INSTALLER Technologist: THANG JAMES Dictated By: MONAE HERNANDEZ MD Signed By: MONAE HERNANDEZ MD Signed Out: 03/10/20 14:58:26 Normal [facility] Vital Signs Date Time Vital Sign Value Performing Clinician Facility 07-14-2024 13:15-0400 Body height 165.1 cm Paula [employer] Work Phone: [facility] 07-14-2024 13:15-0400 Body mass index (BMI) [Ratio] 27.96 kg/m2 [employer] TOOL HONING MACHINE SET UP OPERATOR-PEDIATRIC RN Work Phone: [facility] 07-14-2024 13:15-0400 Body weight 76.2 kg [employer] TOOL HONING MACHINE SET UP OPERATOR-PEDIATRIC RN Work Phone: [facility] 06-22-2024 12:54-0500 Blood Pressure Location Maria E Osman [facility] 06-22-2024 12:54-0500 Diastolic blood pressure 55 mm[Hg] Maria E Osman [facility] 06-22-2024 12:54-0500 Heart rate 56 /min Maria E Osman [facility] 06-22-2024 12:54-0500 Respiratory rate 18 /min Maria E Osman [facility] 06-22-2024 12:54-0500 Systolic blood pressure 125 mm[Hg] Maria E Osman [facility] 05-09-2024 09:17-0500 Body height 165.1 cm [facility] 05-09-2024 09:17-0500 Body mass index (BMI) [Ratio] 29.1 kg/m2 [facility] 05-09-2024 09:17-0500 Body weight 79.37 kg [facility] 05-09-2024 09:17-0500 Diastolic blood pressure 70 mm[Hg] [facility] 05-09-2024 09:17-0500 Heart rate 58 /min [facility] 05-09-2024 09:17-0500 Systolic blood pressure 116 mm[Hg] [facility] 04-30-2024 10:29-0500 Body height 165.1 cm [facility] 04-30-2024 10:29-0500 Body mass index (BMI) [Ratio] 29.1 kg/m2 [facility] 04-30-2024 10:29-0500 Body temperature 99.2 [degF] [facility] 04-30-2024 10:29-0500 Body weight 79.43 kg [facility] 04-30-2024 10:29-0500 Diastolic blood pressure 75 mm[Hg] [facility] 04-30-2024 10:29-0500 Heart rate 58 /min [facility] 04-30-2024 10:29-0500 Respiratory rate 16 /min [facility] 04-30-2024 10:29-0500 SaO2% (BldA) [Mass fraction] 94 % [facility] 04-30-2024 10:29-0500 Systolic blood pressure 146 mm[Hg] [facility] 02-01-2024 11:13-0400 Body height 165.1 cm [facility] 02-01-2024 11:13-0400 Body mass index (BMI) [Ratio] 28.3 kg/m2 [facility] 02-01-2024 11:13-0400 Body weight 77.11 kg [facility] 02-01-2024 11:13-0400 Diastolic blood pressure 72 mm[Hg] [facility] 02-01-2024 11:13-0400 Heart rate 60 /min [facility] 02-01-2024 11:13-0400 Systolic blood pressure 134 mm[Hg] [facility] 11-26-2023 14:08-0400 Body height 165.1 cm Miko Ohara MD Work Phone: [facility] 11-26-2023 14:08-0400 Body mass index (BMI) [Ratio] 27.96 kg/m2 Miko Ohara MD Work Phone: [facility] 11-26-2023 14:08-0400 Body temperature 97 [degF] Miko Ohara MD Work Phone: [facility] 11-26-2023 14:08-0400 Body weight 76.2 kg Miko Ohara MD Work Phone: [facility] 11-26-2023 09:56-0400 Body height 165.1 cm Mainor Post MD Work Phone: [facility] [employer] [facility] 11-26-2023 09:56-0400 Body mass index (BMI) [Ratio] 28.12 kg/m2 Mainor Post MD Work Phone: [facility] [employer] [facility] 11-26-2023 09:56-0400 Body weight 76.66 kg Mainor Post MD Work Phone: [facility] [employer] [facility] 11-26-2023 09:56-0400 Diastolic blood pressure 76 mm[Hg] Mainor Post MD Work Phone: [facility] [employer] [facility] 11-26-2023 09:56-0400 Heart rate 56 /min Mainor Post MD Work Phone: [facility] 11-26-2023 09:56-0400 Systolic blood pressure 124 mm[Hg] Mainor Post MD Work Phone: [facility] 10-28-2023 08:41-0400 Body height 165.1 cm [facility] 10-28-2023 08:41-0400 Body mass index (BMI) [Ratio] 27.9 kg/m2 [facility] 10-28-2023 08:41-0400 Body weight 76.2 kg [facility] 10-28-2023 08:41-0400 Diastolic blood pressure 68 mm[Hg] [facility] 10-28-2023 08:41-0400 Heart rate 58 /min [facility] 10-28-2023 08:41-0400 Systolic blood pressure 106 mm[Hg] [facility] 08-20-2023 14:38-0400 Body height 165.1 cm Divine HarrisonStealz Work Phone: [facility] 08-20-2023 14:38-0400 Body mass index (BMI) [Ratio] 27.96 kg/m2 Divine [employer] Work Phone: [facility] 08-20-2023 14:38-0400 Body weight 76.2 kg Divine [employer]meraleigh[employer]al[employer] Work Phone: [facility] 07-23-2023 14:45-0400 Body height 165.1 cm Divine [employer] Work Phone: [facility] [employer] [facility] 07-23-2023 14:45-0400 Body mass index (BMI) [Ratio] 27.96 kg/m2 Divine [employer] Work Phone: [facility] 07-23-2023 14:45-0400 Body weight 76.2 kg Divine [employer] Work Phone: [facility] 2023 15:34-0500 Body temperature 97.9 [degF] Miko Ohara MD Work Phone: [facility] 2023 15:34-0500 Diastolic blood pressure 53 mm[Hg] Mkio Ohara MD Work Phone: [facility] 03-06-2024 15:34-0500 Heart rate 80 /min Miko Ohara MD Work Phone: [facility] [employer] [facility] 2023 15:34-0500 Respiratory rate 16 /min Miko Ohara MD Work Phone: [facility] 2023 15:34-0500 SaO2% (BldA) [Mass fraction] 98 % Miko Ohara MD Work Phone: [facility] [employer] [facility] 2023 15:34-0500 Systolic blood pressure 110 mm[Hg] Miko Ohara MD Work Phone: [facility] [employer] [facility] 07-07-2023 16:39-0500 Body height 165.1 cm Miko Ohara MD Work Phone: [facility] 07-07-2023 16:39-0500 Body mass index (BMI) [Ratio] 28.02 kg/m2 Miko Ohara MD Work Phone: [facility] [employer] [facility] 07-07-2023 16:39-0500 Body weight 76.39 kg Miko Ohara MD Work Phone: [facility] [employer] [facility] 06-18-2023 14:31-0500 Body height 165.1 cm Miko Ohara MD Work Phone: [facility] [employer] [facility] 06-18-2023 14:31-0500 Body mass index (BMI) [Ratio] 28.12 kg/m2 Miko Ohara MD Work Phone: [facility] [employer] [facility] 06-18-2023 14:31-0500 Body weight 76.66 kg Miko Ohara MD Work Phone: [facility] [employer] [facility] 06-02-2023 11:19-0500 Body height 165.1 cm Donna Diaz MD Work Phone: [facility] [employer] [facility] 06-02-2023 11:19-0500 Body mass index (BMI) [Ratio] 28.12 kg/m2 Donna Diaz MD Work Phone: [employer] [facility] 06-02-2023 11:19-0500 Body weight 76.66 kg Donna Diaz MD Work Phone: [employer] 06-02-2023 11:19-0500 Diastolic blood pressure 68 mm[Hg] Donna Diaz MD Work Phone: [employer] 06-02-2023 11:19-0500 Heart rate 62 /min Donna Diaz MD Work Phone: [employer] 06-02-2023 11:19-0500 SaO2% (BldA) [Mass fraction] 99 % Donna Diaz MD Work Phone: [employer] 06-02-2023 11:19-0500 Systolic blood pressure 106 mm[Hg] Donna Diaz MD Work Phone: [employer] 05-14-2023 09:38-0500 Body height 165.1 cm Miko Ohara MD Work Phone: [employer] 05-14-2023 09:38-0500 Body mass index (BMI) [Ratio] 29.12 kg/m2 Miko Ohara MD Work Phone: [employer] 05-14-2023 09:38-0500 Body temperature 98.2 [degF] Miko Ohara MD Work Phone: [employer] 05-14-2023 09:38-0500 Body weight 79.38 kg Miko Ohara MD Work Phone: [employer] 10-30-2022 14:45-0400 Body height 165.1 cm Elliot Starks Other [employer] Other 10-30-2022 14:45-0400 Body mass index (BMI) [Ratio] 28.4 kg/m2 Elliot Starks Other [employer] Other 10-30-2022 14:45-0400 Body weight 77.43 kg Elliot Starks Other [employer] Other 10-30-2022 14:45-0400 Diastolic blood pressure 66 mm[Hg] Elliot Starks Other [employer] Other 10-30-2022 14:45-0400 Systolic blood pressure 123 mm[Hg] Elliot Starks Other [employer] Other 06-04-2022 11:30-0500 Body height 165.1 cm Elliot Starks Other [employer] Other 06-04-2022 11:30-0500 Body mass index (BMI) [Ratio] 28.29 kg/m2 Elliot Starks Other [employer] Other 06-04-2022 11:30-0500 Body weight 77.11 kg Elliot Starks Other [employer] Other 06-04-2022 11:30-0500 Diastolic blood pressure 64 mm[Hg] Elliot Starks Other [employer] Other 06-04-2022 11:30-0500 SaO2% (BldA) [Mass fraction] 99 % Elliot Starks Other [employer] Other 06-04-2022 11:30-0500 Systolic blood pressure 104 mm[Hg] Elliot Starks Other [employer] Other Encounters Encounter Date Encounter Type Care Provider Facility Start: 10-26-2024 ambulatory Alfreda Miller Facility:[facility] Start: 09-19-2024 End: 09-19-2024 ambulatory Alfreda Miller Facility:[facility] Start: 09-19-2024 End: 09-19-2024 Patient encounter procedure Alfreda Miller [facility] Start: 09-12-2024 End: 09-12-2024 ambulatory Jean Pierre MARTE Facility:[facility] Start: 09-12-2024 End: 09-12-2024 ambulatory Alfreda Miller Facility:[facility] Start: 09-12-2024 End: 09-12-2024 Patient encounter procedure Alfreda Moraesmalini [facility] Start: 08-22-2024 End: 08-22-2024 ambulatory Daisy Liz MD Facility:[facility] Start: 08-07-2024 End: 08-10-2024 Refill Vinicio Causey PA-C [facility] Phone[facility] Comment on above: Med Refill Start: 08-03-2024 End: 08-04-2024 Refill Rosangela Montague TOOL HONING MACHINE SET UP OPERATOR-PEDIATRIC RN Work Phone: [facility] Comment on above: Med Refill Start: 07-27-2024 End: 07-28-2024 Refill Sander Pollack [facility] Comment on above: Med Refill Start: 07-20-2024 End: 07-27-2024 Refill Miko Vasquez APRN-PEDIATRIC RN Work Phone[facility] Comment on above: Med Refill Start: 07-20-2024 ambulatory Alfreda Miller Facility:[facility] [place] Start: 07-14-2024 End: 07-14-2024 Postop follow up visit related to original px Paula Barrera APRN-PEDIATRIC RN Work Phone: [facility] Comment on above: Hx of total hip arth roplasty, right (Primary Dx) Start: 07-14-2024 End: 07-14-2024 Subsequent hospital visit by physician Paula Barrera APRN-PEDIATRIC RN Work Phone: [facility] Start: 07-14-2024 ambulatory ELLIOT [facility] Start: 06-30-2024 End: 07-06-2024 Refill Michael Castanon TOOL HONING MACHINE SET UP OPERATOR-PEDIATRIC RN Work Phone: [facility] Comment on above: Med Refill Start: 06-22-2024 End: 07-26-2024 Pre-admission assessment Alfreda Miller [facility] Start: 06-22-2024 End: 06-22-2024 ambulatory Maria E Gutierreza Facility:[facility] Start: 06-22-2024 End: 06-22-2024 Lab Drop off Maria E Osman [facility] Start: 06-22-2024 End: 06-22-2024 ambulatory Maria E Osman Facility:[facility] Start: 06-22-2024 End: 06-22-2024 Patient encounter procedure Maria E Osman [facility] Start: 06-21-2024 End: 06-21-2024 ambulatory [facility] Work Phone: Start: 06-21-2024 End: 06-21-2024 Patient encounter procedure [facility] Work Phone: Start: 05-11-2024 Non-patient / Non-visit [facility] Work Phone: Start: 05-09-2024 End: 05-09-2024 ambulatory [facility] Work Phone: Start: 05-09-2024 End: 05-09-2024 Patient encounter procedure [facility] Work Phone: Start: 04-30-2024 End: 04-30-2024 Patient encounter procedure [facility] Work Phone: Start: 04-04-2024 End: 04-04-2024 ambulatory Daisy Liz MD Facility:[facility] Start: 02-01-2024 End: 02-01-2024 ambulatory [facility] Work Phone: Start: 02-01-2024 End: 02-01-2024 Patient encounter procedure [facility] Work Phone: Start: 01-02-2024 End: 01-05-2024 Refill Rosangela HANEY Work Phone: [facility] Comment on above: Med Refill Start: 12-14-2023 End: 12-14-2023 ambulatory Daisy Liz MD Facility:[facility] Start: 11-26-2023 End: 11-26-2023 Subsequent hospital visit by physician Miko Ohara MD Work Phone: [facility] Start: 11-26-2023 ambulatory MIKO OHARA [facility] Start: 11-26-2023 End: 11-26-2023 Office outpatient visit 15 minutes Miko Ohara MD Work Phone: [facility] Comment on above: Hx of total hip arth roplasty, right (Primary Dx) Paroxysmal atrial fi brillation (CMS-HCC) (Primary Dx); Unstable angina (CMS-HCC); SOB (shortness of breath) Start: 11-25-2023 End: 11-25-2023 Telephone encounter [facility] Start: 10-28-2023 End: 10-28-2023 ambulatory [facility] Work Phone: Start: 10-28-2023 End: 10-28-2023 Patient encounter procedure [facility] Work Phone: Start: 10-19-2023 End: 10-26-2023 Refill Mike Craft MD Work Phone: [facility] Comment on above: Med Refill Start: 09-30-2023 End: 10-01-2023 ambulatory ANDREW CHOI [facility] Start: 09-17-2023 Telephone encounter Matt Duron H[facility]ology[facility]On[facility] Comment on above: Yearly Exam With Shane rodriguez Start: 08-20-2023 End: 08-20-2023 Subsequent hospital visit by physician Divine Dougherty Work Phone: [facility] Start: 08-20-2023 ambulatory DIVINE Deric DOUGHERTY [facility] Start: 08-20-2023 End: 08-20-2023 Postop follow up visit related to original px Divine Dougherty Work Phone: [facility] Comment on above: Right hip pain (Prim hayden Dx) Start: 08-20-2023 ambulatory ELLIOT RAUDEL [facility] Start: 08-12-2023 End: 08-12-2023 ambulatory MIKO SIMBA [facility] Start: 08-10-2023 End: 08-13-2023 Refill Divine Kaur APRN-AUSTEN Work Phone: [facility] Comment on above: Med Refill Start: 07-23-2023 End: 07-23-2023 Postop follow up visit related to original px Divine Dougherty Work Phone: [facility] Comment on above: Tear of gluteus mini mus tendon, right, initial encounter (Primary Dx) Start: 07-23-2023 End: 07-23-2023 Subsequent hospital visit by physician Divine Dougherty Work Phone: [facility] Start: 07-23-2023 ambulatory DIVINE DOUGHERTY [facility] Start: 07-17-2023 Refill Mike galloway MD Work Phone: [facility] Comment on above: Med Refill Start: 07-15-2023 End: 07-16-2023 Emergency department patient visit EILEEN BLANTON [facility] Start: 07-15-2023 Telephone encounter Ashia Lema [facility] Start: 07-15-2023 End: 07-15-2023 Emergency department patient visit ELLIOT STARKS [facility] Start: 07-07-2023 End: 2023 Evaluation and management of inpatient Miko Ohara MD Work Phone: [facility] Comment on above: Status post revision of total hip Start: 07-07-2023 End: 2023 Patient encounter status Miko Ohara MD Work Phone: [facility] Start: 07-01-[address] [facility] Start: 06-19-2023 Telephone encounter Jacqueline Sparrow RN [facility] Comment on above: Pre op clearance Start: 06-18-2023 End: 06-18-2023 Office outpatient visit 40 minutes Miko Ohara MD Work Phone: [facility] Comment on above: Right hip pain (Prim hayden Dx) Start: 06-02-2023 End: 06-02-2023 Office outpatient visit 25 minutes Donna Diaz MD Work Phone: [facility] Comment on above: Paroxysmal atrial fi brillation (CMS-HCC) (Primary Dx); Primary hypertension; Chronic coronary artery disease Start: 06-02-2023 End: 06-02-2023 ambulatory MERCY DIAZ [facility] Start: 05-14-2023 End: 05-14-2023 Office outpatient new 30 minutes Miko Ohara MD Work Phone: [facility] Comment on above: Pain in prosthetic j oint, initial encounter (Primary Dx); Primary osteoarthritis of right hip Start: 05-14-2023 End: 05-14-2023 Subsequent hospital visit by physician Miko Ohara MD Work Phone: [facility] Start: 03-30-2023 (Televisit) Televisit [facility] Start: 03-30-2023 End: 03-30-2023 ambulatory Elliot Starks Other [employer] Other Start: 02-11-2023 End: 02-11-2023 Patient encounter procedure Alfreda Miller [facility] Start: 12-29-2022 Preoperative state Donna franks MD Work Phone: [employer] [facility] Start: 11-17-2022 End: 11-17-2022 ambulatory Elliot Starks Other [employer] Other Start: 11-17-2022 Telephone encounter Elliot Starks [facility] Start: 10-30-2022 End: 10-30-2022 ambulatory Elliot Starks Other [employer] Other Start: 10-30-2022 Office outpatient vi sit 15 minutes Elliot Starks [facility] Start: 10-29-2022 End: 10-29-2022 ambulatory Elliot Starks Other [employer] Other Start: 10-29-2022 Telephone encounter Elliot Starks [facility] Start: 10-27-2022 Nursing evaluation o f patient and report Elliot Starks [facility] Start: 10-27-2022 End: 10-27-2022 ambulatory Elliot Starks [employer] Other Start: 10-27-2022 End: 10-27-2022 Departed Referred MD Elliot Starks Work Phone: [facility] [place] Work Phone: Start: 09-11-2022 Telephone encounter Matt Duron Hematology/Oncology Comment on above: Orders Start: 08-11-2022 End: 08-11-2022 ambulatory Elliot Starks Other [employer] Other Start: 08-11-2022 Nursing evaluation o f patient and report Elliot Starks [facility] Start: 07-17-2022 (Televisit) Televisit Elliot Dela Cruz [facility] Start: 07-17-2022 End: 07-17-2022 ambulatory Elliot Starks Other [employer] Other Start: 06-23-2022 End: 06-23-2022 ambulatory Elliot Starks Other [employer] Other Start: 06-23-2022 Nursing evaluation o f patient and report Elliot Starks [facility] Start: 06-09-2022 End: 06-09-[address] ELLIOT STARKS Facility:[facility] Start: 06-06-2022 End: 06-06-2022 ambulatory Elliot Starks Other [employer] Other Start: 06-06-2022 Telephone encounter Elliot Starks [facility] Start: 06-04-2022 End: 06-04-2022 ambulatory Elliot Starks Other [employer] Other Start: 06-04-2022 Office outpatient vi sit 25 minutes Elliot Starks [facility] Start: 05-21-2022 End: 05-21-2022 ambulatory Elliot Starks Other [employer] Other Start: 05-21-2022 Telephone encounter Elliot Starks [facility] Start: 04-26-2022 End: 04-26-[address] ELLIOT STARKS Facility:[facility] Start: 04-14-2022 End: 04-14-[address] ELLIOT STARKS Facility:[facility] Start: 12-18-2021 End: 12-18-[address] [facility] Facility:[facility] Start: 10-03-2021 Telephone encounter Andrew black MD Work Phone: Hematology/Oncology Comment on above: Lab Orders Start: 09-26-2021 Telephone encounter Mikaela jimenez RN Work Phone: Hematology/Oncology Comment on above: Radiology Mammogram Start: 12-02-2016 End: 12-03-2016 Ambulatory DEFAULT PHYSICIAN Facility:[facility] Procedures Date Procedure Procedure Detail Performing Clinician Start: 2023 Basic metabolic pane l calcium total Chance Mahoney MD Work Phone: Start: 2023 Complete blood count with white cell differential, automated Paula Barrera TOOL HONING MACHINE SET UP OPERATOR-PEDIATRIC RN Work Phone: Start: 07-07-2023 Cultyp nuc acid amp prb cult/isolate ea ranjithm Chance Mahoney MD Work Phone: Start: 07-07-2023 Radiologic examinati on pelvis 1/2 views Paula aVsquezey TOOL HONING MACHINE SET UP OPERATOR-PEDIATRIC RN Work Phone: Start: 07-07-2023 Cell count miscellan [...] routine ecg w/le ast 12 lds w/i&r Donan Diaz MD Work Phone: Start: 06-02-2023 Follow-up visit Follow-up DONNA DIAZ Start: 05-14-2023 Heavy metal quantiat david each tiffany Miko Ohara MD Work Phone: Start: 09-25-2020 Mammography Mikaela jimenez RN Work Phone: Start: 10-07-2019 Adult depression scr eening assessment Mikaela Thompson RN Work Phone: Start: 04-08-2017 Colonoscopy Donna short MD Work Phone: Start: 01-01-2017 Screening mammography M claude Starks Other Start: 02-01-2013 General examination of patient Elliot Starks Other Appendectomy Alfreda Miller Bilateral cataracts (disorder) Alfreda Lue Cardiac ablation sys tem (physical object) Alfreda Lue Cholecystectomy Alfreda Lue Insertion of hip prosthesis Alfreda Lue Lumpectomy of left breast Ka gonsalo Miller Rotator cuff includi ng muscles and tendons (body structure) Alfreda Moraese Screening for malign ant neoplasm of breast Elliot Starks Other Total abdominal hysterectomy Alfreda Miller Plan of Treatment Date Care Activity Detail Author Start: 01-02-2025 Influenza vaccination Influenza Vacc ine [facility] Start: 11-25-2024 Adult BMI Screening Adult BMI Screen ing [facility] Start: 11-25-2024 Tobacco Screening Tobacco Screening [facility] Start: 09-29-2024 Adult BMI Screening Adult BMI Screen ing [facility] Start: 09-29-2024 Screening for malign ant neoplasm of breast MAMMOGRAM SCREENING DISCUSSION [facility] Start: 08-11-2024 Adult BMI Screening Adult BMI Screen ing [facility] Start: 08-11-2024 End: 08-10-2025 CBC panel - Blood by Automated count CBC Lab Routine Paroxysmal atrial fibrillation (CMS-HCC) Benign hypertension Expected: 08/11/2024 (Approximate), Expires: 08/10/2025 [facility] Comment on above: Expected: 08/11/2024 (Approximate), Expires: 08/10/2025 Start: 08-11-2024 End: 08-10-2025 Comprehensive metabolic 2000 panel - Serum or Plasma CMP Lab Routine Paroxysmal atrial fibrillation (CMS-HCC) Benign hypertension Expected: 08/11/2024 (Approximate), Expires: 08/10/2025 [employer] Work Phone: Comment on above: Expected: 08/11/2024 (Approximate), Expires: 08/10/2025 Start: 08-11-2024 End: 08-10-2025 Magnesium [Mass/volume] in Serum or Plasma Magnesium Lab Routine Paroxysmal atrial fibrillation (CMS-HCC) Benign hypertension Expected: 08/11/2024 (Approximate), Expires: 08/10/2025 [facility] Comment on above: Expected: 08/11/2024 (Approximate), Expires: 08/10/2025 Start: 08-11-2024 Tobacco Screening Tobacco Screening [facility] Start: 07-14-2024 Tobacco Screening Tobacco Screening [facility] Start: 07-14-2024 End: 07-14-2024 Patient encounter procedure 07/14/2024 11:20 AM EDT Office Visit [facility] [address] [place] [address] Miko Ohara MD [address] [place] [address] [facility] Start: 07-07-2024 Potassium [Moles/vol ume] in Serum or Plasma POTASSIUM [facility] Start: 06-02-2024 Adult BMI Screening Adult BMI Screen ing [facility] Start: 06-02-2024 Tobacco Screening Tobacco Screening [facility] Start: 02-16-2024 End: 02-16-2024 Patient encounter procedure 02/16/2024 11:00 AM EDT Office Visit [facility] [address] [place] [address] Sheridan Reyes MD [address] [place] [address] [facility] Start: 01-03-2024 COVID-19 Vaccine () COVID-19 Vaccine () [facility] Start: 01-03-2024 COVID-19 Vaccine ( season) COVID-19 Vaccine ( season) [facility] Start: 01-03-2024 Influenza vaccination C [facility] Start: 11-26-2023 End: 11-26-2023 Patient encounter procedure [facility] Start: 10-09-2023 DIABETES SCREEN DIABETES SCREEN [facility] Start: 10-09-2023 Diabetes Screening Diabetes Screenin g [facility] Start: 08-20-2023 End: 08-20-2023 Patient encounter procedure 08/20/2023 2:30 PM EDT Office Visit [facility] [address] [place] [id number] Divine Dougherty [address] [place] [id number] [facility] Start: 08-12-2023 End: 08-12-2023 Patient encounter procedure 08/12/2023 8:00 AM EDT [facility] [address] [place] [phone] Miko Vasquez, TOOL HONING MACHINE SET UP OPERATOR-PEDIATRIC RN [address] [place] [address] [facility] Start: 07-23-2023 End: 07-23-2023 Patient encounter procedure 07/23/2023 2:30 PM EDT Office Visit [facility] [address] [place] [id number] Divine Dougherty [address] [place] [phone] [facility] Start: 07-07-2023 End: 07-07-2023 Evaluation and management of inpatient [facility] Comment on above: Tear of [...] 06/25/2023 10:00 AM EST Pre-Operative Nurse Assessment [facility] Pre Admission [address] [place] [id number] Pre-op testing (Primary Dx); Essential (primary) hypertension; Abnormal finding of blood chemistry, unspecified; Abnormal coagulation profile [facility] Comment on above: Pre-op testing (Prim hayden Dx); Essential (primary) hypertension; Abnormal finding of blood chemistry, unspecified; Abnormal coagulation profile Start: 06-13-2023 COVID-19 Vaccine ( season) COVID-19 Vaccine () [facility] Start: 05-28-2023 End: 05-28-2023 Patient encounter procedure 05/28/2023 11:00 AM EST Office Visit [facility] [address] [place] [address] Peter Gardiner, DO [address] [place] [address] [facility] Start: 05-14-2023 End: 05-14-2024 MR Hip - right WO contrast MRI HIP RIGHT WITHOUT CONTRAST Imaging Routine Pain in prosthetic joint, initial encounter Expected: 05/14/2023, Expires: 05/14/2024 [facility] Comment on above: Expected: 05/14/2023 , Expires: 05/14/2024 Start: 05-04-2023 Advance Directive Discussion Advance Directive Discussion [facility] Start: 05-04-2023 Behavioral Health Screening Behavioral Health Screening [facility] Start: 01-02-2023 Covid-19 Vaccine ( season) Covid-19 Vaccine ( season) [facility] Start: 01-02-2023 COVID-19 VACCINE ( season) COVID-19 VACCINE ( season) [facility] Start: 01-02-2023 Influenza vaccination INFLUENZA (Sea son Ended) [facility] Start: 10-27-2022 Bacteria identified in Urine by Culture [facility] Start: 05-04-2022 ADVANCE DIRECTIVE DISCUSSION ADVANCE DIRECTIVE DISCUSSION [facility] Start: 05-04-2022 DEPRESSION ASSESSMENT DEPRESSION ASS ESSMENT [facility] Start: 04-08-2022 Screening for malign ant neoplasm of colon Colonoscopy [facility] Start: 01-02-2022 Influenza vaccination INFLUENZA (Sea son Ended) [facility] Start: 10-07-2021 End: 12-07-2021 Cancer Ag 27-29 [Units/volume] in Serum or Plasma CA 27.29 BLOOD Lab Routine Malignant neoplasm of upper-outer quadrant of left breast in female, estrogen receptor positive (HCC) Expected: 10/07/2021, Expires: 12/07/2021 [facility] Work Phone: Comment on above: Expected: 10/07/2021 , Expires: 12/07/2021 Start: 10-07-2021 End: 12-07-2021 CBC W Auto Differential panel - Blood CBC + DIFF Lab Routine Malignant neoplasm of upper-outer quadrant of left breast in female, estrogen receptor positive (HCC) Expected: 10/07/2021, Expires: 12/07/2021 [facility] Work Phone: Comment on above: Expected: 10/07/2021 , Expires: 12/07/2021 Start: 10-07-2021 End: 12-07-2021 Comprehensive metabolic 2000 panel - Serum or Plasma COMP METABOLIC PANEL Lab Routine Malignant neoplasm of upper-outer quadrant of left breast in female, estrogen receptor positive (HCC) Expected: 10/07/2021, Expires: 12/07/2021 [facility] Work Phone: Comment on above: Expected: 10/07/2021 , Expires: 12/07/2021 Start: 09-25-2021 Mammography MAMMOGRAM [facility] Start: 05-04-2021 ADVANCE DIRECTIVE DISCUSSION ADVANCE DIRECTIVE DISCUSSION [facility] Start: 11-17-2020 COVID-19 VACCINE (3 - Booster for Pfizer series) COVID-19 VACCINE (3 - Booster for Pfizer series) [facility] Start: 10-06-2020 Adult depression screening assessment DEPRESSION SCREENING [facility] Start: 08-15-2020 COVID-19 VACCINE (3 - Booster for Pfizer series) COVID-19 VACCINE (3 - Booster for Pfizer series) [facility] Start: 01-05-2019 Pneumococcal Vaccine : 65+ (2 of 2 - PCV) Pneumococcal Vaccine: 65+ (2 of 2 - PCV) [facility] Start: 01-05-2019 PNEUMOCOCCAL: 65+ (2 - PCV) PNEUMOCOCCAL: 65+ (2 - PCV) [facility] Start: 07-07-2012 BONE DENSITY BONE DENSITY [facility] Start: 07-07-2012 Fall Risk Screening Fall Risk Screen ing [facility] Start: 07-07-2012 Screening for osteoporosis Bone Density Screening [facility] Start: 2007 RSV Vaccine (1 - 1-d ose 60+ series) RSV Vaccine (1 - 1-dose 60+ series) [facility] Start: 07-07-1997 Administration of varicella zoster vaccine Zoster (Shingles) Vaccine (1 of 2) [facility] Start: 07-07-1997 SHINGRIX VACCINE (1 of 2) SHINGRIX VACCINE (1 of 2) [facility] Start: 07-07-1997 Zoster vaccine hzv l david for subcutaneous use ZOSTER (SHINGLES) VACCINE (1 of 2) [facility] Start: 07-07-1992 COLOGUARD (FIT-DNA) COLOGUARD (FIT-D NA) [facility] Start: 07-07-1992 Colonoscopy COLONOSCOPY [facility] Start: 07-07-1992 COLORECTAL CANCER SCREENING COLORECTAL CANCER SCREENING [facility] Start: 07-07-[address] COLONOGRAPHY [facility] Start: 07-07-1992 FECAL OCCULT BLOOD FECAL OCCULT BLOO D [facility] Start: 07-07-1992 LIPID SCREEN LIPID SCREEN [facility] Start: 07-07-1992 Screening for malign ant neoplasm of colon COLORECTAL CANCER SCREENING DISCUSSION [facility] Start: 07-07-[address] [facility] Start: 1987 Lipid panel LIPID SCREENING [facility] Start: 1987 Screening for malign ant neoplasm of breast MAMMOGRAM SCREENING DISCUSSION [facility] Start: 07-07-1968 Screening for malign ant neoplasm of cervix CERVICAL CANCER SCREENING DISCUSSION [facility] Start: 07-07-1966 DTaP,Tdap and Td Vaccines (1 - Tdap) DTaP,Tdap and Td Vaccines (1 - Tdap) [facility] Start: 07-07-1966 Third diphtheria, tetanus and acellular pertussis (DTaP) vaccination TDAP (ADULT) [facility] Start: 07-07-1966 Urine microalbumin profile [facility] Start: 07-07-1965 Adult BMI Follow Up Plan Adult BMI F ollow Up Plan [facility] Start: 07-07-1965 HEPATITIS C SCREENING HEPATITIS C SC REENING [facility] Start: 1959 Depression Screening Depression Scre ening [facility] Start: 07-07-1953 PNEUMOCOCCAL: 65+ (1 - PCV) PNEUMOCOCCAL: 65+ (1 - PCV) [facility] Start: 1947 Hepatitis C screening HEPATITI S C VIRUS SCREENING [facility] Start: 1947 Medicare Annual Well ness Visit Medicare Annual Wellness Visit [facility] Start: 1947 Potassium [Moles/vol ume] in Serum or Plasma POTASSIUM [facility] Start: 1947 Screening for osteoporosis DEXA SCAN DISCUSSION [facility] Start: 1945 Tetanus vaccination TETANUS [facility] ANAEROBE CULTURE [facility] Comment on above: Release Upon Orderin g for 1 Occurrences starting 07/07/2023 Bacterial culture an d sensitivity CULTURE WOUND Microbiology Routine 07/07/2023 2:27 PM EST [facility] BODY FLUID CELL COUNT BODY FLUID CELL COUNT Fluids Routine Tear of rotator cuff of right hip, initial encounter 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, initial encounter Release Upon Ordering for 1 Occurrences starting 07/07/2023 [facility] Comment on above: Release Upon Orderin g for 1 Occurrences starting 07/07/2023 End: 08-04-2025 Comprehensive metabolic 2000 panel - Serum or Plasma Comprehensive metabolic panel Lab Routine Primary hypertension Coronary artery disease involving [place] coronary artery of [place] heart with unstable angina pectoris ([facility]) 1 Occurrences starting 08/04/2024 until 08/04/2025 [employer] Work Phone: Comment on above: 1 Occurrences starti ng 08/04/2024 until 08/04/2025 End: 10-16-2024 DBT Breast - bilateral screening SHANE SCREENING [facility] Routine Encounter for screening mammogram for malignant neoplasm of breast 1 Occurrences starting 09/17/2023 until 10/16/2024 [facility] Work Phone: Comment on above: 1 Occurrences starti ng 09/17/2023 until 10/16/2024 End: 07-07-2023 Fungus identified in Unspecified specimen by Culture [employer] Comment on above: Release Upon Orderin g for 1 Occurrences starting 07/07/2023 One Time for 1 Occur rences starting 07/07/2023 until 07/07/2023 End: 08-04-2025 Magnesium [Mass/volume] in Serum or Plasma Magnesium Lab Routine Primary hypertension Coronary artery disease involving [place] coronary artery of [place] heart with unstable angina pectoris ([facility]) 1 Occurrences starting 08/04/2024 until 08/04/2025 [facility] Comment on above: 1 Occurrences starti ng 08/04/2024 until 08/04/2025 End: 10-26-2022 SHANE SCREENING W [facility]ANE SCREENING [facility] Radiology Routine Encounter for screening mammogram for malignant neoplasm of breast 1 Occurrences starting 09/26/2021 until 10/26/2022 [facility] Work Phone: Comment on above: 1 Occurrences starti ng 09/26/2021 until 10/26/2022 End: 10-11-2023 SHANE SCREENING W YAW SHANE SCREENING [facility] Radiology Routine Encounter for screening mammogram for malignant neoplasm of breast 1 Occurrences starting 09/11/2022 until 10/11/2023 [facility] Work Phone: Comment on above: 1 Occurrences starti ng 09/11/2022 until 10/11/2023 End: 07-07-2023 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 [employer] [facility] Comment on above: Release Upon Orderin g for 1 Occurrences starting 07/07/2023 One Time for 1 Occur rences starting 07/07/2023 until 07/07/2023 XR Pelvis and Hip - right Views XR HIP WITH PELVIS RIGHT Imaging Routine Primary osteoarthritis of right hip 05/14/2023 9:20 AM [facility] [employer] Work Phone: XR Pelvis and Hip - right Views XR HIP WITH PELVIS RIGHT Imaging Routine Tear of gluteus minimus tendon, right, initial encounter 07/23/2023 2:22 PM EDT [employer] XR Pelvis and Hip - right Views XR HIP WITH PELVIS RIGHT Imaging Routine Right hip pain 08/20/2023 3:17 PM EDT [employer] XR Pelvis and Hip - right Views XR HIP WITH PELVIS RIGHT Imaging Routine Hx of total hip arthroplasty, right 11/26/2023 1:53 PM EDT [employer] [facility] XR Pelvis and Hip - right Views XR HIP WITH PELVIS RIGHT Imaging Routine Hx of total hip arthroplasty, right 07/14/2024 1:07 PM EDT [facility] Immunizations Immunization Date Immunization Notes Care Provider Pablo wheat 02-08-2024 influenza virus vaccine, unspecified formulation Maria E Osman [facility] 02-10-2023 influenza virus vaccine, unspecified formulation Alfredaana Miller [facility] 02-01-2022 influenza virus vaccine, unspecified formulation Alfredaana Miller [facility] 08-13-2021 SARS-CoV-2 mRNA (gjiozhahxve-dpyh-ocheq se) vaccine Alfreda Lue [facility] 01-29-2021 SARS-CoV-2 (COVID-19 ) mRNA BNT-162b2 vax Alfreda Lumalini [facility] Comment on above: Result Comment: 2022: [id number] 06-20-2020 COVID-19 vaccine, ag e 12+ yr ([employer] - PURPLE TOP) Mikaela Thompson RN Work Phone: [facility] 05-28-2020 SARS-CoV-2 (COVID-19 ) mRNA BNT-162b2 vax Alfreda Lue [facility] 05-18-2020 COVID-19 vaccine, ag e 12+ yr ([employer] - PURPLE TOP) Mikaela Thompson RN Work Phone: [facility] 01-27-2020 influenza virus vaccine, split virus (incl. purified surface antigen) Elliot Starks Other [employer] Other 01-27-2020 influenza virus vaccine, unspecified formulation Alfreda Lue [facility] 01-20-2019 influenza virus vaccine, unspecified formulation Alfreda Lue [facility] 01-20-2019 influenza, high dose seasonal, preservative-free Mikaela Thompson RN Work Phone: [facility] 03-09-2018 influenza virus vaccine, unspecified formulation Alfreda Lue [facility] 01-05-2018 influenza virus vaccine, split virus (incl. purified surface antigen) Elliot Starks Other [employer] Other 01-05-2018 influenza virus vaccine, unspecified formulation Alfreda Lue [facility] 01-05-2018 influenza, high dose seasonal, preservative-free Mikaela Thompson RN Work Phone: [facility] 01-05-2018 pneumococcal polysaccharide vaccine, 23 valent Mikaela Thompson RN Work Phone: [facility] 02-25-2017 influenza virus vaccine, unspecified formulation Alfreda Lue [facility] 02-17-2017 pneumococcal polysaccharide vaccine, 23 valent Alfreda Luamlini [facility] 02-05-2017 influenza virus vaccine, split virus (incl. purified surface antigen) Elliot Starks Other [employer] Other 02-05-2017 influenza virus vaccine, unspecified formulation Alfreda Miller [facility] 02-05-2017 pneumococcal conjuga te vaccine, 13 valent Alfreda Lumalini [facility] 02-01-2002 pneumococcal polysaccharide vaccine, 23 valent Elliot Starks Other [facility] Payers Date Payer Category Payer Private Health Insurance [id number] 2023 Medicare (Managed Care) MEDICARE [employer] PPO [id number] 2022 Self-pay 2021 Medicare HMO [employer] MEDICARE [id number] 2014 Medicare [employer] MEDICARE A [employer] MEDICARE PPO [id number] 2014-Present [phone] [address] [place] [address] PPO [id number] 2014 Medicare [id number] 1959 Medicare [id number] 1947 Unknown [id number] 2.16840.1.222372.3.579.2. 593 1947 Unknown [id number] 2.16.840.1.042294.3.579.2. 593 1947 Unknown [id number] 2.16.840.1.583857.3.579.2. 593 1947 Unknown [id number] 2.16.840.1.488686.3.579.2. 718 1947 Unknown [id number] 2.16840.1.441069.3.579.2. 1286 1947 Unknown [id number] 2.16.840.1.871082.3.579.2. 1286 1947 Unknown [id number] 2.16.840.1.588163.3.579.2. 1286 1947 Unknown [id number] 2.16.840.1.644492.3.579.2. 1286 1947 Unknown [id number] 2.16.840.1.208466.3.579.2. 1286 1947 Unknown [id number] 2.16.840.1.576633.3.579.2. 727 1947 Unknown [id number] 2.16.840.1.285452.3.579.2. 727 1947 Unknown [id number] 2.16.840.1.219918.3.579.2. 727 1947 Unknown [id number] 2.16.840.1.828213.3.579.2. 983 1947 Unknown [id number] 2.16.840.1.649487.3.579.2. 983 1947 Unknown [id number] 2.16.840.1.265379.3.579.2. 983 1947 Unknown [id number] 2.16.840.1.148681.3.579.2. 983 1947 Unknown [id number] 2.16840.1.060405.3.579.2. 983 1947 Unknown [id number] 2.16.840.1.431508.3.579.2. 983 1947 Unknown [id number] 2.16.840.1.138871.3.579.2. 983 1947 Unknown [id number] 2.16840.1.622362.3.579.2. 983 1947 Unknown [id number] 2.16.840.1.918223.3.579.2. 196 1947 Unknown [id number] 2.16.840.1.993388.3.579.2. 196 1947 Unknown [id number] 2.16.840.1.099058.3.579.2. 196 1947 Unknown [id number] 2.16.840.1.195372.3.579.2. 727 1947 Unknown [id number] 2.16.840.1.553691.3.579.2. 727 1948 Unknown [id number] 2.16.840.1.086597.3.579.2. 727 1947 Unknown [id number] 2.16.840.1.823973.3.579.2. 727 Private Health Insurance [employer] [facility] PF M [id number] Unknown Unknown [id number] 2.16.840.1.311215.3.579.2. 531 Social History Date Type Detail Facility Start: 12-03-2015 End: 06-22-2024 Tobacco smoking status NHIS Ex-smoker [facility] End: 12-05-1990 History of tobacco use Current smoker [facility] Start: 12-03-2015 End: 05-15-2020 Cigarettes smoked current (pack per day) - Reported 1 [facility] Start: 12-03-2015 End: 11-26-2023 Tobacco use and exposure Smokeless tobacco non-user [facility] Start: 10-08-2020 End: 11-26-2023 Alcohol intake Current drinker of alcohol (finding) [facility] Start: 1945 Sex Assigned At Not on file C [facility] Start: 05-15-2020 End: 05-14-2023 Sex Assigned At [facility] End: 12-05-1990 History of tobacco use Cigarette Smoker [facility] Start: 1945 Sex Assigned At Female F [facility] Tobacco smoking status Never [facility] Start: 05-14-2023 Tobacco smoking stat us LAIS Never smoked tobacco [facility] Has the [employer], [employer], [email or web address], or water company threatened to shut off services in your home in past 12Mo No [facility] (I/We) worried wheth er (my/our) food would run out before (I/we) got money to buy more. Never true [employer] Start: 03-19-2017 End: 06-19-2023 Alcohol Comment social [facility] Start: 07-22-2018 End: 05-09-2024 Sex Female (finding) [facility] Start: 03-31-2022 Tobacco Comment quit in 1989 [facility] Start: 05-09-2018 Gender identity Identifies as female gender (finding) [facility] Sexual Orientation [facility] Medical Equipment Procedure Code Equipment Code Equipment Origin al Text Equipment Identifier Dates Anchors, 5.5 Non Punching - [id number] Start: 07-07-2023 Anchors, 5.5 Non Punching - [id number] Start: 07-07-2023 Functional Status Date Assessment Result Facility 09-19-2024 Functional Status N/A [facility] 06-22-2024 Functional Status N/A [facility] 07-07-2023 Are you deaf, or do you have serious difficulty hearing No 07/07/2023 4:30 PM Marcella Muñoz RN [facility] 07-07-2023 Are you blind, or do you have serious difficulty seeing, even when wearing glasses No 07/07/2023 4:30 PM Marcella Muñoz RN [facility] 07-07-2023 Do you have serious difficulty walking or climbing stairs No 07/07/2023 4:30 PM Marcella Muñoz RN [facility] 07-07-2023 Do you have difficul ty dressing or bathing No 07/07/2023 4:30 PM Marcella Muñoz RN [facility] 07-07-2023 Because of a physica l, mental, or emotional condition, do you have difficulty doing errands alone such as visiting a physician's office or shopping No 07/07/2023 4:30 PM Marcella Muñoz RN [facility] 02-11-2023 Functional Status N/A [facility] Mental Status Date Assessment Result Facility 07-07-2023 Because of a physica l, mental, or emotional condition, do you have serious difficulty concentrating, remembering, or making decisions No 07/07/2023 4:30 PM Marcella Muñoz RN No [facility] Clinical Notes 09-26-2021 to 09-19-2024 Note Date & Type Note Facility 09-19-2024 Evaluation + Plan note Extrac mary from: Title:EU- Clinic HOPD Note Author:Alfreda Miller MD. Date:09/19/24 Impression and Plan Assessment and Plan: Diagnosis: Vaginal atrophy (VZR92-BH N95.2, Discharge, Medical), Recurrent UTI (RXY11-SU N39.0, Discharge, Medical), Mixed incontinence (GGG49-XP N39.46, Discharge, Medical). 79-year-old female with a history of postmenopausal recurrent UTIs and mixed urinary incontinence urge over stress. She has failed medical therapy and elected proceed with Botox 100 units performed today without issues. Regarding recurrent UTIs and vaginal atrophy, 10% of women over the age of 60 will have recurrent urinary tract infection - 2 or more urinary tract infection in 6 months or 3 or more per year. We discussed multiple etiologies including constipation, voiding dysfunction, incomplete bladder emptying, fecal incontinence, uncontrolled diabetes and vaginal atrophy. I explained the lack of estrogen secondary [...] for harmful bacteria to colonize the vagina. Recommendations discussed: -Start estrace cream. Patient was told to apply a pea-sized amount 3 times weekly at night for 4 weeks and then 2 times per week thereafter, may take up to 3 months for full effect. This has been shown to reduce frequency of UTIs by up to 70%. She was reassured that there is minimal systemic absorption with application of vaginal estrogen cream and most of the benefits will be to the local tissues. She should stop medication and notify us if she feels breast tenderness or has vaginal spotting. Hx of microhematuria-CTU neg for filling defects, 3 mm right ureteral stone noted. Follow up CT scan confirmed passage. Increase fluids recommended Extracted from: Title:Preoperative H&P: EU Author:Alfreda Miller MD Date:09/19/24 Impression and Plan Impression: cystoscopy and botox 100 units for mixed incontinence Plan: Proceed with planned surgery per clinic note, risks/benefits previously discussed and documented Future Appointments Appointment Date:10/26/2024 08:00:00 AM Scheduled Provider:Maria E Osman PA-C Location:[facility] Appointment Type:URO Office Visit [facility] 05-19-2025 Hospital Discharge instructions Patient Education 09/19/2024 08:23:15 EU - Cystoscopy with Botox Injection Discharge Instructions (CUSTOM) Cystoscopy with Botox injection Voiding after the procedure: there may be some pain, burning, urgency, frequency and blood tinged urine following the procedure. These symptoms usually resolve within 2-5 days. Drink the amount of fluid it takes to keep the urine pink to yellow or clear in color. Drinking enough water and fluids will help to ease any discomfort after your procedure. It may take a few days to a week to notice a gradual improvement in the overactive bladder symptoms. - Stop trospium when your symptoms improve If you are having problems that seem out of the ordinary, please call. If unable to contact your physician and you feel it is an emergency, go to the nearest emergency room or call 911 Do not lift more than fifteen pounds for 1-2 days. If you see a lot of blood, you probably did too much. Diet you may resume your normal diet. Pain control You may take extra strength Tylenol or Motrin for discomfort. Call if you have a fever over 100 degrees. Follow Up Care 08/24/2024 10:01:15 With:Maria E Osman Address:Unknown When: Unknown Comments:Office to schedule follow up in 1 month with PVR With:Alfreda Miller Address:Unknown When: Unknown [facility] 05-19-2025 NoteHistory and Physical Patient: BETTIE BURNS Age: 79 years Sex: Female : 1945 Associated Diagnoses: None Author: Alfreda Miller MD Preoperative Information Indication for procedure and diagnosis: cystoscopy and botox 100 units for mixed incontinence Chief Complaint As above Review of Systems All systems reviewed, negative except as mentioned above Health Status Allergies: Allergic Reactions (Selected) Severity Not Documented Ambien- No reactions were documented. Baclofen- No reactions were documented. Codeine- No reactions were documented. Levaquin- No reactions were documented. Morphine Sulfate- No reactions were documented. Penicillin- No reactions were documented. Ultram- No reactions were documented. Current medications: (Selected) Prescriptions Prescribed Estrace 0.1 mg/g Cream: See Instructions, 42.5 gm, Refill(s) 2, Apply pea sized amount to urethra/vagina 3x a week for 1 month, then 2x a week afterwards, [facility]/pharmacy #[id number], 165, cm, 06/22/24 13:05:00 EST, Height/Length Dosing, 80.7, kg, 06/22/24 13:05:00 EST, Weight Dosing... Keflex 500 mg Cap: 500 mg = 1 cap(s), Oral, q12hr, X 7 day(s), # 14 cap(s), Refills(s) 0, Pharmacy:[facility]/pharmacy #[id number], 165, cm, 06/22/24 13:05:00 EST, Height/Length Dosing, 80.7, kg, 06/22/24 13:05:00 EST, Weight Dosing trospium 60 mg oral capsule, extended release: 60 mg = 1 cap(s), Oral, Bedtime, # 90 tab(s), Refills(s) 3, Pharmacy: [facility], 165, cm, 05/27/23 8:54:00 EST, Height/Length Dosing, 77.5, kg, 05/27/23 8:54:00 EST, Weight Dosing Documented Medications Documented Aleve: Refills(s) 0 BACLOFEN 10 MG TABLET: BACLOFEN 10 MG TABLET Eliquis 5 mg oral tablet: Refills(s) 0 Neuveria Vitamin OTC: Neuveria Vitamin OTC Potassium Chloride (Upo-Ibpk-Bbx 10) 10 mEq oral tablet, extended release: 10 mEq = 1 tab(s), Refills(s) 0 SUMAtriptan 25 mg Tab: 25 mg = 1 tab(s), Refills(s) 0 atenolol 50 mg Tab: 50 mg = 1 tab(s), Refills(s) 0 cycloSPORINE Opth 0.05% Emul: 1 drop(s), Refill(s) 0 flecainide 50 mg Tab: 50 mg = 1 tab(s), Refills(s) 0 hydrochlorothiazide 25 mg Tab: mg tab(s), Oral, Daily, Refills(s) 0 lisinopril 20 mg Tab: Refills(s) 0 omeprazole 40 mg Cap-DR: 40 mg = 1 cap(s), Refills(s) 0 traZODONE 50 mg Tab: 50 mg = 1 tab(s), Refills(s) 0 Problem list: All Problems Anticoagulated / SNOMED CT 186268416 / Confirmed Chronic atrial fibrillation / SNOMED CT 3039855708 / Confirmed Eczema / SNOMED CT 56511349 / Confirmed Former smoker / SNOMED CT 33840475 / Confirmed Frequent UTI / SNOMED CT 193776984 / Confirmed History of breast cancer / SNOMED CT 2202365612 / Confirmed History of malignant neoplasm of breast / SNOMED CT 1999769718 / Confirmed Hypertensive disorder / SNOMED CT 2940897667 / Confirmed Microscopic hematuria / SNOMED CT 957230490 / Confirmed Mixed incontinence / SNOMED CT 07608537 / Confirmed Rectocele / SNOMED CT 7169544377 / Confirmed Histories Past Medical History: No active or resolved past medical history items have been selected or recorded. Family History: Entire family history is negative. Procedure history: Cholecystectomy (24407529). Hip replacement (6479078447). Lumpectomy of left breast (4542579768). Rotator cuff (99591519). ROSA - Total abdominal hysterectomy (489825437). Appendectomy (598598492). Cataracts (4807143316). Cardiac ablation system (6927463371). Social History Social & Psychosocial Habits Tobacco 06/22/2024 Tobacco Use: Former smoker, quit more Smokeless tobacco use: Never Type: Cigarettes Concerns about tobacco use in household: No Smoking Cessation Yes . Physical Examination No qualifying data available General Appearance: alert , no acute distress, well nourished Head: normocephalic . Eyes: normal orbit and globe. ENMT: normal examination of external ears. Chest: symmetric chest rise, respirations non labored . Cardiovascular: regular rate and rhythm. Abdomen: soft , non distended, no tenderness Genitourinary: bladder nonpalpable, no flank tenderness. Skin: warm, dry Psychiatric: cooperative, affect appropriate for age, normal judgement, euthymic mood. Impression and Plan Impression: cystoscopy and botox 100 units for mixed incontinence Plan: Proceed with planned surgery per clinic note, risks/benefits previously discussed and documentedNorwalk Memorial HospitalComment on above:Result Comment: Electronically Signed By: Paul VILLEGAS, Alfreda Palacios\.br\Date and Time Signed: 09/19/24 08:[id number] NoteProgress Note-Physician Patient: BETTIE BURNS Age: 79 years Sex: Female : 1945 Associated Diagnoses: None Author: Alfreda Miller MD Health Status Allergies: Allergic Reactions (Selected) Severity Not Documented Ambien- No reactions were documented. Baclofen- No reactions were documented. Codeine- No reactions were documented. Levaquin- No reactions were documented. Morphine Sulfate- No reactions were documented. Penicillin- No reactions were documented. Ultram- No reactions were documented., Allergies (7) Active Severity Reaction Ambien None Documented baclofen None Documented codeine None Documented Levaquin None Documented Morphine Sulfate None Documented penicillin None Documented Ultram None Documented Current medications: (Selected) Prescriptions Prescribed Estrace 0.1 mg/g Cream: See Instructions, 42.5 gm, Refill(s) 2, Apply pea sized amount to urethra/vagina 3x a week for 1 month, then 2x a week afterwards, [facility]/pharmacy #[id number], 165, cm, 06/22/24 13:05:00 EST, Height/Length Dosing, 80.7, kg, 06/22/24 13:05:00 EST, Weight Dosing... Keflex 500 mg Cap: 500 mg = 1 cap(s), Oral, q12hr, X 7 day(s), # 14 cap(s), Refills(s) 0, Pharmacy:[facility]/pharmacy #[id number], 165, cm, 06/22/24 13:05:00 EST, Height/Length Dosing, 80.7, kg, 06/22/24 13:05:00 EST, Weight Dosing trospium 60 mg oral capsule, extended release: 60 mg = 1 cap(s), Oral, Bedtime, # 90 tab(s), Refills(s) 3, Pharmacy: [facility], 165, cm, 05/27/23 8:54:00 EST, Height/Length Dosing, 77.5, kg, 05/27/23 8:54:00 EST, Weight Dosing Documented Medications Documented Aleve: Refills(s) 0 BACLOFEN 10 MG TABLET: BACLOFEN 10 MG TABLET Eliquis 5 mg oral tablet: Refills(s) 0 Neuveria Vitamin OTC: Neuveria Vitamin OTC Potassium Chloride (Wld-Vuxg-Com 10) 10 mEq oral tablet, extended release: 10 mEq = 1 tab(s), Refills(s) 0 SUMAtriptan 25 mg Tab: 25 mg = 1 tab(s), Refills(s) 0 atenolol 50 mg Tab: 50 mg = 1 tab(s), Refills(s) 0 cycloSPORINE Opth 0.05% Emul: 1 drop(s), Refill(s) 0 flecainide 50 mg Tab: 50 mg = 1 tab(s), Refills(s) 0 hydrochlorothiazide 25 mg Tab: mg tab(s), Oral, Daily, Refills(s) 0 lisinopril 20 mg Tab: Refills(s) 0 omeprazole 40 mg Cap-DR: 40 mg = 1 cap(s), Refills(s) 0 traZODONE 50 mg Tab: 50 mg = 1 tab(s), Refills(s) 0 Impression and Plan Assessment and Plan: Diagnosis: Vaginal atrophy (ROO64-VN N95.2, Discharge, Medical), Recurrent UTI(ATF04-CD N39.0, Discharge, Medical), Mixed incontinence (UOP05-SV N39.46, Discharge, Medical). 79-year-old female with a history of postmenopausal recurrent UTIs and mixed urinary incontinence urge over stress. She has failed medical therapy and elected proceed with Botox 100 units performed today without issues. Regarding recurrent UTIs and vaginal atrophy, 10% of women over the age of 60 will have recurrent urinary tract infection - 2 or more urinary tract infection in 6 months or 3 or more per year. We discussed multiple etiologies including constipation, voiding dysfunction, incomplete bladder emptying, fecal incontinence, uncontrolled diabetes andvaginal atrophy. I explained the lack of estrogen secondary [...] for harmful bacteria to colonize the vagina. Recommendations discussed: -Start estrace cream. Patient was told to apply a pea-sized amount 3 times weekly at night for 4 weeks and then 2 times per week thereafter, may take up to 3 months for full effect. This has been shown to reduce frequency of UTIs by up to 70%. She was reassured that there is minimal systemic absorption with application of vaginal estrogen cream and most of the benefits will be to the local tissues. She should stop medication and notify us if she feels breast tenderness or has vaginal spotting. Hx of microhematuria-CTU neg for filling defects, 3 mm right ureteral stone noted. Follow up CT scan confirmed passage. Increase fluids recommendedNorwalk Memorial HospitalComment on above:Result Comment: Electronically Signed By: Paul VILLEGAS, Alfreda Palacios\.br\Date and Time Signed: 09/19/24 08:[id number] Note Patient Education Cystoscopy with Botox injection ??? Voiding after the procedure: there may be some pain, burning, urgency, frequency and blood tinged urine following the procedure. These symptoms usually resolve within 2-5 days. Drink the amount of fluid it takes to keep the urine pink to yellow or clear in color. Drinking enough water and fluids will help to ease any discomfort after your procedure. ??? It may take a few days to a week to notice a gradual improvement in the overactive bladder symptoms. - Stop trospium when your symptoms improve ??? If you are having problems that seem out of the ordinary, please call. ??? If unable to contact your physician and you feel it is an emergency, go to the nearest emergency room or call 911 ??? Do not lift more than fifteen pounds for 1-2 days. If you see a lot of blood, you probably did too much. ??? Diet ??? you may resume your normal diet. ??? Pain control ??? You may take extra strength Tylenol or Motrin for discomfort. ??? Call if you have a fever over 100 degrees. ???[facility]04-02-2025 Miscellaneous Notes* Telephone Encounter - Leslie Negron RN - 08/03/2024 12:21 AM EDT Ov-11/26/23 Cmp and mg -07/15/23 New cmp and mg order placed and letter sent 08/04/24 [facility] this [facility] Telephone encounter Note* Telephone Encounter - Leslie Negron RN - 08/03/2024 12:21 AM EDT Ov-11/26/23 Cmp and mg -07/15/23 New cmp and mg order placed and letter sent 08/04/24 [facility]03[facility] Miscellaneous Notes* Telephone Encounter - Sander Pollack RN - 07/27/2024 1:57 PM EDT P/c from pt requesting refills to [facility]. OV 11/26/23 07/14/24 MAG, CMP, CBC EKG 08/12/23 documented in this encounterAsht[facility]ula [facility]03-26-2025 Telephone encounter Note* Telephone Encounter - Sander Pollack RN - 07/27/2024 1:57 PM EDT P/c from pt requesting refills to [facility]. OV 11/26/23 07/14/24 MAG, CMP, CBC EKG 08/12/23 [facility]03-13-[facility] History of Present illness Narrative* Svitlana Blake - 07/14/2024 2:00 PM EDT Ortho Nurse - Established Patient Intake Room#: 5 Date: 07/14/2024 1:15 PM Patient: Bettie Burns MR#: [id number] : 1945 Age: 79 y.o. 1yr R [...] Laterality: Right; Surgeon: Miko Ohara MD; Location: [facility] ONT OR HIP REPLACEMENT 2021 ABLATION NERVE RADIOFREQUENCY PULSED 09/2018 for a-fib with [facility] APPENDECTOMY BREAST LUMPECTOMY FOOT SURGERY HEART CATHETERIZATION no stents MA ENDOMETRIAL CRYOABLATION W/US & ENDOMETRIAL CR REMOVAL [...] 1 month, then 2x/week for maintainence, [facility]/pharmacy #[id number], 165, cm, 02/11/23 10:41:00 EDT, [...] 1 month, then 2x/week for maintainence, [facility]/pharmacy #[id number], 165, cm, 02/11/23 10:41:00 EDT, [...] latex, morphine, oxycodone, penicillins, and tramadol. * Paula Barrera APRN-AUSTEN - 07/14/2024 2:00 PM EDT HPI: Patient is here today for evaluation of their operative hip. She is status post previous totalhip arthroplasty with abductor repair one year ago. She is about a year out, reports that she is doing well and is pleased with the outcome of the intervention. The hip feels better now than itdid before, and she is not having any [...] face to face time with patient. Paula Barrera APRN-AUSTEN I have reviewed the findings of my clinical staff below and agree with their assessment. Ortho Nurse - Established Patient Intake Room#: 5 Date: 07/14/2024 1:15 PM Patient: Bettie Burns MR#: [id number] : 1945 Age: 79 y.o. 1yr R [...] LUMPECTOMY FOOT SURGERY HEART CATHETERIZATION no stents MA ENDOMETRIAL CRYOABLATION W/US & ENDOMETRIAL CR REMOVAL [...] 1 month, then 2x/week for maintainence, [facility]/pharmacy #[id number], 165, cm, 02/11/23 10:41:00 EDT, Height/Length Dosing, [...] 1 month, then 2x/week for maintainence, [facility]/pharmacy #[id number], 165, cm, 02/11/23 10:41:00 EDT, [...] oxycodone, penicillins, and tramadol. documented in this [facility]02-27-2025 Miscellaneous Notes* Telephone Encounter - Mami Cifuentes RN - 06/30/2024 12:22 AM EST OV 11/26/2023 documented in this [facility]02-27-2025 Telephone encounter Note* Telephone Encounter - Mami Cifuentes RN - 06/30/2024 12:22 AM EST OV 11/26/2023 [facility]02-[facility] Hospital Discharge instructions Patient Education 06/22/2024 15:04:23 Hematuria, Adult Hematuria, Adult Hematuria is blood in the urine. Blood may be visible in the urine, or it may be identified with a test. This condition can be caused by infections of the bladder, urethra, kidney, or prostate. Otherpossible causes include: Kidney stones. Cancer of the [...] blood in your urine, even if it ispainless or the blood stops without treatment. Blood in the urine, when it happens and then stops and then happens again, can be a symptom of a very serious condition, including cancer. There is no pain in the initial stages of many urinary cancers. Follow these instructions at home: Medicines Take amkg-gno-rcbbqkm and prescription medicines only as told by your health care provider. If you were prescribed an antibiotic medicine, take it as told by your health care provider. Do notstop taking the antibiotic even if you start to feel better. Eating and drinking Drink enough fluid to keep your urine pale yellow. It is recommended that you drink 3 4 quarts (2.83.8 L) a day. If you have been diagnosed with an infection, drinking cranberry juice in addition tolarge amounts of water is recommended. Avoid caffeine, [...] about any blood in your urine, even ifit is painless or the blood stops without treatment. Take zxif-kyu-pflxsgh and prescription medicines only as told by your health care provider. Drink enough fluid to keep your urine pale yellow. This information is not intended to replace advice given to you by your health care provider. Make sure you discuss any questions you have with your health care provider. Document Revised: 12/19/2020 Document Reviewed: 12/19/2020 [employer] Patient Education 2023 [employer]. 06/22/2024 15:04:17 Overactive Bladder, Adult Overactive Bladder, [...] You may also have very sensitive muscles thatmake your bladder squeeze too soon. This condition [...] your health care provider. General instructions Take hpkd-vjw-eyukpzg and prescription medicines only as told by your health care provider. If you were prescribed an antibiotic medicine, take it as told by your health care provider. Do notstop taking the antibiotic even if you start [...] provider. Document Revised: 01/07/2021 Document Reviewed: 01/07/2021 [employer] Patient Education 2023 [employer]. Follow Up Care 06/22/2024 10:24:57 With:Paul VILLEGAS, PERLA Araujo, URO Address: When: Unknown Comments:F/U pending cystoscopy [facility] 02-19-2025 NotePatient Education Obstetrics and Gynecology Overactive Bladder, Adult [...] You may also have very sensitive muscles thatmake your bladder squeeze too soon. This condition [...] health care provider. General instructions ??? Take gvqv-gqb-dndnllv and prescription medicines only as told by your health care provider. ??? If you were prescribed an antibiotic medicine, take it as told by your health care provider. Donot stop taking the antibiotic even if you start to feel better. ??? Use any implants or pessary as told by your health care provider. ??? If needed, wear pads to absorb urine leakage. ??? Keep a log to track how much and when you drink, and whe (more content not included)...[facility]12-28-2024 Evaluation note* Diagnosis Onset Date Resolution Status Admit Date Acute bilateral otitis media acute April 30, 2024 9:54am [facility] Work Phone: 1(371) 381-640712-28-2024 Evaluation note* Diagnosis Onset Date Resolution Status Admit Date Acute bilateral otitis media acute April 30, 2024 9:54am Acute otitis media with effusion acute [facility], 202 5 9:07am Insomnia acute May 09 025 9:07am Reaction, situational, acute , to stress acute May 09 9:07am [facility] Work Phone: 1(557) 301-588508-31-2024 Miscellaneous Notes* Telephone Encounter - Jacinta Neri [...] 56 Low CM documented in this encounterAs[facility]08-31-2024 Telephone encounter Note* Telephone Encounter - Jacinta [...] >59 ml/min/1.73sq.m 46 Low 56 Low CM [facility]07-25-2024 History of Present illness Narrative* Hal Fischer - 11/26/2023 2:00 PM EDT Ortho Nurse - Established Patient Intake Room#: 3 --- Patient presents today for 4 month follow-up of RTHA. Patient states that pain is 2/10today. Patient states that she is improved especially with PT, but is still limping more than she anticipated. Patient has been doing PT at [facility] and this helps, says next week is her last session. Patient states that she is due for nerve block in SI joint at [facility] who she seesregularly, states that she needs approval from Dr. Ohara on this. Date: 11/26/2023 2:25 PM Patient: Bettie Burns MR#: [id number] : 1945 Age: 78 y.o. Referring Physician: [...] LUMPECTOMY FOOT SURGERY HEART CATHETERIZATION no stents MA ENDOMETRIAL CRYOABLATION W/US & ENDOMETRIAL CR REMOVAL [...] 1 month, then 2x/week for maintainence, [facility]/pharmacy #[id number], 165, cm, 02/11/23 10:41:00 EDT, [...] 1 month, then 2x/week for maintainence, [facility]/pharmacy #[id number], 165, cm, 02/11/23 10:41:00 EDT, [...] anticipated. Patient has been doing PT at [facility] and this helps, says next week is her last session. Patient states that she is due for nerve block in SI joint at [facility] who she seesregularly, states that she needs approval from Dr. Ohara on this. Date: 11/26/2023 2:25 PM Patient: Bettie Burns MR#: [id number] : 1945 Age: 78 y.o. Referring Physician: [...] LUMPECTOMY FOOT SURGERY HEART CATHETERIZATION no stents MA ENDOMETRIAL CRYOABLATION W/US & ENDOMETRIAL CR REMOVAL [...] 1 month, then 2x/week for maintainence, [facility]/pharmacy #[id number], 165, cm, 02/11/23 10:41:00 EDT, [...] 1 month, then 2x/week for maintainence, [facility]/pharmacy #[id number], 165, cm, 02/11/23 10:41:00 EDT, [...] oxycodone, penicillins, and tramadol. [facility] History of Present illness Narrative* Mainor Post MD - 11/26/2023 10:30 AM EDT Bettie Carly Frailey Date of visit: 11/26/2023 Date of : [...] Burns was seen in follow-up in the [place] office. Records are reviewed. She is a [...] avoidance. Past Medical History: Diagnosis Date [place] hx of Arrhythmia 12/2016 ATRIAL FIBRILLATION Arthritis Breast cancer [place] 11/14/2015 LEFT COVID-19 03/2020 History of bleeding ulcers Hypertension Migraines Pneumonia d/t covid Prolonged emergence from general anesthesia Visual impairment glasses No data recorded No data recorded No data recorded Past Surgical History: Procedure Laterality Date ABLATION OF DYSRHYTHMIC FOCUS Right nerve ablation, L4 and L5 Afib ablation with SHANICE - CRYO, Rhythmia, ICE N/A 09/28/2018 Performed by Amber Quiñonez MD at [facility] () ARTHROSCOPY REPAIR ROTATOR CUFF SHOULDER Right 05/16/2020 Performed by Melchor Rivera DO at [facility] ARTHROSCOPY SHOULDER Right 05/16/2020 Performed by Melchor Rivera DO at [facility] BREAST BIOPSY Left 2016 BREAST LUMPECTOMY Left 11/14/2015 WITH RADIATION BREAST SURGERY Left 2012 lumpectomy CATARACT EXTRACTION CHOLECYSTECTOMY COLONOSCOPY Coronary angiogram and left ventricular gram/pressure N/A 08/08/2021 Performed by Bertram Lal MD at [facility] CARDIAC CATH LABS EYE SURGERY lids lifted [...] Needs: No Transportation Needs (07/07/2023) [facility] from [facility] [facility] PRAPARE - Transportation Lack of Transportation (Medical): No Lack of Transportation (Non-Medical): No Physical Activity: Not on file Stress: Not on file Social Connections: Not on file Interpersonal Safety: Not on file Housing Instability: Low Risk (07/07/2023) Received from [facility] Housing Stability Vital Sign Unable to [...] STARKS MD Referring Physician: Elliot Starks MD [address] [place] [id number] documented in this encounterWashington County [facility] HospitalPM[facility]07-24-2024 Miscellaneous Notes* Telephone Encounter - Medina Jaramillo MA - 11/25/2023 10:56 AM EDT Called patient to remind them to bring their most current copy of their medication list with them to their appt. Patient verbalizes understanding. documented in this encounterAshtabula [facility] Center07-24-2024 Telephone encounter Note* Telephone Encounter - Medina Jaramillo MA - 11/25/2023 10:56 AM EDT Called patient to remind them to bring their most current copy of their medication list with them to their appt. Patient verbalizes understanding. [facility]06-17-2024 Miscellaneous Notes* Telephone Encounter - Jacinta Neri RN - 10/19/2023 9:19 AM EDT Last OV 08/25 CMP 3 documented in this encounterAshtabula County Medical Center06-17-2024 Telephone encounter Note* Telephone Encounter - Jacinta Neri RN - 10/19/2023 9:19 AM EDT Last OV 08/25 CMP 3 [facility]05-16-[facility] Telephone encounter Note* Telephone Encounter - Matt Adams RN - 09/17/2023 1:30 PM EDT Order faxed to [facility] Julio Pt aware. Matt Adams RN [facility]05-16-2024 Miscellaneous Notes* Telephone Encounter - Matt Adams RN - 09/17/2023 1:30 PM EDT Order faxed to [facility] Julio Pt aware. Matt Adams RN * Telephone Encounter - Matt Adams RN - 09/17/2023 10:18 AM EDT Pt called to request yearly Mammogram order I have pended order as previously completed Pt requests to fax to Nori Lema [phone] BR/: please review and sign if agreeable Matt Adams RN documented in this encounterPremier [facility]05-16-2024 Telephone encounter Note * Telephone Encounter - Matt Adams RN - 09/17/2023 10:18 AM EDT Pt called to request yearly Mammogram order I have pended order as previously completed Pt requests to fax to Nori Lema [phone] [facility]/: please review and sign if agreeable Matt Adams RN [facility]04-18-2024 History of Present illness Narrative* Eva Landryclair - 08/20/2023 2:30 PM EDT Ortho Nurse [...] she is interested in Physcial Therapy through [facility]. Date: 08/20/2023 2:38 PM Patient: Bettie Burns MR#: [id number] : 1945 Age: 78 y.o. Referring Physician: [...] LUMPECTOMY FOOT SURGERY HEART CATHETERIZATION no stents MA ENDOMETRIAL CRYOABLATION REMOVAL BILIARY DUCT/GALLBLADDER CALCULI/DEBRIS PERCUTANEOUS [...] 1 month, then 2x/week for maintainence, [facility]/pharmacy #[id number], 165, cm, 02/11/23 10:41:00 EDT, [...] arise. All pertinant portions of the clinical phlebotomy support tech documentation was reviewed and I agree with [...] she is interested in Physcial Therapy through [facility]. Date: 08/20/2023 2:38 PM Patient: Bettie Burns MR#: [id number] : 1945 Age: 78 y.o. Referring Physician: Self, Self Insurance: Payor: MEDICARE AET HMO OR PPO [...] LUMPECTOMY FOOT SURGERY HEART CATHETERIZATION no stents MA ENDOMETRIAL CRYOABLATION REMOVAL BILIARY DUCT/GALLBLADDER CALCULI/DEBRIS PERCUTANEOUS [...] 1 month, then 2x/week for maintainence, [facility]/pharmacy #[id number], 165, cm, 02/11/23 10:41:00 EDT, Height/Length Dosing, [...] oxycodone, penicillins, and tramadol. documented in this encounterWilson Memorial Hospital04-08-2024 Miscellaneous Notes* Telephone Encounter - Ray Wills LPN - 08/10/2023 12:45 AM EDT Theresa 08/12/23 Cmp, mg 07/15/23 documented in this encounterAshtabula County Medical Center04-08-2024 Telephone encounter Note* Telephone Encounter - Ray Wills LPN - 08/10/2023 12:45 AM EDT Theresa 08/12/23 Cmp, mg 07/15/23 [facility]03-21-2024 History of Present illness Narrative* Eva Abrams [...] 07/23/2023 2:45 PM Patient: Bettie Burns MR#: [id number] : 1945 Age: 78 y.o. Referring Physician: [...] LUMPECTOMY FOOT SURGERY HEART CATHETERIZATION no stents MA ENDOMETRIAL CRYOABLATION REMOVAL BILIARY DUCT/GALLBLADDER CALCULI/DEBRIS PERCUTANEOUS [...] 1 month, then 2x/week for maintainence, [facility]/pharmacy #[id number], 165, cm, 02/11/23 10:41:00 EDT, [...] Eliquis for DVT prophylaxis. She reports the MARY hose we provided bothered her feet so [...] prescribed. We discussed the importance of maintaining MARY hose and alternatives to the ones we [...] visit. All pertinant portions of the clinical phlebotomy support tech documentation was reviewed. Divine Dougherty I have reviewed the findings of the clinical phlebotomy support tech and agree with their assessment. Divine Dougherty [...] 07/23/2023 2:45 PM Patient: Bettie Burns MR#: [id number] : 1945 Age: 78 y.o. Referring Physician: [...] LUMPECTOMY FOOT SURGERY HEART CATHETERIZATION no stents MA ENDOMETRIAL CRYOABLATION REMOVAL BILIARY DUCT/GALLBLADDER CALCULI/DEBRIS PERCUTANEOUS [...] 1 month, then 2x/week for maintainence, [facility]/pharmacy #[id number], 165, cm, 02/11/23 10:41:00 EDT, [...] oxycodone, penicillins, and tramadol. documented in this encounterWilson Memorial Hospital03-15-2024 Miscellaneous Notes* Telephone Encounter - Estela Bueno RN - 07/17/2023 1:28 AM EDT Dose confirmed with patient documented in this encounterAshtabula County Medical Center03-15-2024 Telephone encounter Note* Telephone Encounter - Estela Bueno RN - 07/17/2023 1:28 AM EDT Dose confirmed with patient [facility]03-13-2024 Miscellaneous Notes* Telephone Encounter - Ashia Goncalves [...] was willing. slm documented in this encounterAshtabula County Medical Center03-13-2024 Telephone encounter Note* Telephone Encounter - Ashia [...] and she was willing. slm [facility] [phone] Miscellaneous Notes* Nursing Notes - Dolly Liao [...] 07, 2023 ATTENDING PHYSICIAN: Miko Ohara M.D. 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 PROCEDURE PERFORMED: Unlisted procedure of right hip and pelvis, dual-row suture anchor repair of 100% massive abductor tear of right hip, work equivalent similar to CPT 48562 Periarticular injection of right hip. ANESTHESIA: General. [...] it as a CPT similar to that, 77186. ATTENDING/ASSISTING PARTICIPATION: This operation could not have been safely performed (without compromising the technical results or length of the procedure) without the assistance of a skilled surgical attendant. A surgical attendant was medically necessary for positioning, retraction and [...] OPERATIVE/PROCEDURE NOTE Bettie Burns 77 y.o. female [id number] SURGEON Surgeons and Role: * Miko Ohara MD - Primary EXTRACTOR PULLER MEDINA Richardson ANESTHESIOLOGIST SUPERVISOR NEWSPAPER DELIVERIES: Chance Ngo CRNA; Damián Saenz APRN-TREVA SURGICAL STAFF Svp: Kisha Karimi RN; Whit Govea RN Nurse Practitioner: Paula Barrera APRN-AUSTEN Scrub Person: Chi Goldberg RN; Naomi [...] Implant Name Type Inv. Item Serial No. Water Fitness Instructor Lot No. LRB No. Used Action ANCHORS, 5.5 NON PUNCHING - [id number] ANCHORS, 5.5 NON PUNCHING HIST ARTHREX [id number] Right 1 Implanted ANCHORS, 5.5 NON PUNCHING - [id number] ANCHORS, 5.5 NON PUNCHING HIST ARTHREX [id number] Right 3 Implanted SPECIMENS ID Type Source [...] MEDINA Richardson July 07, 2023 3:28 PM * Nursing Notes - Chelsea Bledsoe RN - 07/07/2023 10:52 AM EST Unable to doppler right dorsalis pedis pulse. documented in this encounterWilson Memorial Hospital03-06-2024 Nurse Note* Nursing Notes - [...] patient discharged home with daughter and . [facility]03-06-2024 Hospital Discharge instructions* Discharge Instructions* Carmen Sebastian RN - 2023 12:10 PM EST You have been given printed educational handouts on all new medications. Please refer to your greendischarge folder for handouts. You have been given seven ABD pads, one ice gel compression wrap, six ice gel packs, two pairs of MARY hose and all personal belongings. If at any time you have questions please refer to your green discharge folder with all at home care instructions. Mary Hose: > Help reduce the risk of blood clots and decrease swelling > To be worn bilaterally to the lower extremities for 30 days post-op > You are able to take your MARY hose off for 1 hour for every [...] at all times - Use a leg software qa manager to get in and out of bed [...] - 2023 12:01 PM EST Contact Office ([phone]) if: > Any falls or injuries > [...] incision or operative leg. documented in this [facility]03-06-2024 History of Present illness Narrative* Carmen [...] in place DVT Screening Exam: Calves soft/non-tender Mary hose: PRESENT OR ABSENT: present Foot pumps/ SCD's: PRESENT OR ABSENT: present Hemovac Drain Output: N/a mL/last shift Physical Therapy: Gait Distance: 15 Feet: ASSESSMENT: s/p Right Abductor Muscle Repair, POD#1, doing well. PLAN: PT/OT IV antibiotics DVT prophylaxis Discharge planning DISCHARGE PLANNING: plans; post hospital: SEE SS NOTES * Christine Wolf, OT - 07/07/2023 6:39 PM EST 07/07/23 [...] LUMPECTOMY FOOT SURGERY HEART CATHETERIZATION no stents MA ENDOMETRIAL CRYOABLATION REMOVAL BILIARY DUCT/GALLBLADDER CALCULI/DEBRIS PERCUTANEOUS [...] 0 Equipment Available wheeled walker;elevated toilet seat;shower chair;wood drilling machine operator Cognitive Status Examination Orientation Status (Cognition) [...] Supine to Sit, Rehab Eval Level of Orrick: Supine/Sit stand-by assist Physical Assist/Nonphysical Assist: Supine/Sit 1 person assist Transfer Skill: Sit to Stand, Rehab Eval Level of Orrick: Sit/Stand contact guard Physical Assist/Nonphysical Assist: Sit/Stand 1 person assist Weight-Bearing Restrictions: Sit/Stand toe touch weight-bearing Assistive Device for Transfer: Sit/Stand wheeled walker Upper Body Dressing Level of Orrick independent Physical Assist/Nonphysical Assist set-up required Lower Body Dressing Level of Orrick maximum assist (25% patients effort) Physical Assist/Nonphysical Assist 1 person assist Assistive Device wood drilling machine operator General Therapy Interventions Planned Therapy Interventions (OT Eval) ADL retraining;balance training;transfer training Clinical Impression Co-evaluation/co-treatment performed? Yes, combination of simultaneous billable and individual billable skilled care was necessary due to medical complexity and functional deficits Patient Instruction/Education comments Pt instructed on LB dressing techniques donning underwear and shorts min assist in sitting and standing with training on use of wood drilling machine operator to maintain hip precautions Rehab Potential [...] hygiene training Therapist Information License # [id number] 1. Pt will complete LB dressing SBA 2. Pt will complete sponge bathing min assist 3. Pt will complete toileting MOD I 4. Pt will complete hygiene/grooming standing at sink MOD I 5. Pt will complete walk in shower transfer CGA * Mayra Kaur PT - 07/07/2023 6:38 PM EST 07/07/23 [...] LUMPECTOMY FOOT SURGERY HEART CATHETERIZATION no stents MA ENDOMETRIAL CRYOABLATION REMOVAL BILIARY DUCT/GALLBLADDER CALCULI/DEBRIS PERCUTANEOUS [...] Supine to Sit, Rehab Eval Level of Orrick: Supine/Sit stand-by assist Physical Assist/Nonphysical Assist: Supine/Sit 1 person assist Transfer Skill: Sit To Stand, Rehab Eval Orrick (Sit-Stand Transfers) contact guard Physical Assist/Nonphysical Assist: Sit/Stand 1 person assist Weight-Bearing Restrictions: Sit/Stand toe touch weight-bearing Assistive Device For Transfer: Sit/Stand 2 wheeled walker Gait Skills, PT Eval Level of Orrick: Gait contact guard Physical Assist/Nonphysical Assist: Gait [...] educated on hip precautions, use of leg software qa manager and weight bearing status. Pteducated to only [...] be independent with HEP per protocol. * Paula Barrera APRN-AUSTEN - 07/07/2023 3:28 PM EST THIS PATIENT HAS HAD ORTHOPEDIC SURGERY AND IS EXPECTED TO HAVE PAIN REQUIRING NARCOTICS FOR >7 DAYS AND MAY NEED UP TO 12 tabs of oxycodone PER DAY AND THEREFORE 30tabs ARE BEING DISPENSED IN ACCORDANCE WITH POC DISCUSSED WITH DR OHARA. documented in this [facility]03-06[facility] Hospital course Narrative* Chance Mahoney MD [...] 1 month, then 2x/week for maintainence, [facility]/pharmacy #[id number], 165, cm, 02/11/23 10:41:00 EDT, [...] Dept Phone 07/23/2023 2:30 PM Divine Dougherty [facility] Orthopedics [phone] documented in this encounterWilson Memorial Hospital03-06-2024 Surgery Postoperative evaluation and management note* Op Note - Miko Ohara MD - 2023 5:54 AM EST DATE OF PROCEDURE: July 07, 2023 ATTENDING PHYSICIAN: Miko Ohara M.D. 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 PROCEDURE PERFORMED: Unlisted procedure of right hip and pelvis, dual-row suture anchor repair of 100% massive abductor tear of right hip, work equivalent similar to CPT 82045 Periarticular injection of right hip. ANESTHESIA: General. [...] it as a CPT similar to that, 48940. ATTENDING/ASSISTING PARTICIPATION: This operation could not have been safely performed (without compromising the technical results or length of the procedure) without the assistance of a skilled surgical attendant. A surgical attendant was medically necessary for positioning, retraction and instrume ntation. [facility] [employer]03-06-2024 Nurse Note* Nursing Notes - Aidee Field RN - 2023 4:10 AM EST Assessment remains unchanged from previous. Neuro checks WN, abductor pillow in place. Call light within reach. [facility] [employer]03-06-2024 Nurse Note* Nursing Notes - Aidee Field RN - 2023 12:05 AM EST Assessment remains unchanged from previous. Neuro checks WNL, abductor pillow in place. Denies futher needs, call light within reach. [facility] [employer]03-05-2024 Consult note* Chance Mahoney MD - 07/07/2023 [...] LUMPECTOMY FOOT SURGERY HEART CATHETERIZATION no stents MA ENDOMETRIAL CRYOABLATION REMOVAL BILIARY DUCT/GALLBLADDER CALCULI/DEBRIS PERCUTANEOUS [...] metabolic panel in the morning GI prophylaxis. [facility]03-05-2024 Consult note* Chance Mahoney MD [...] LUMPECTOMY FOOT SURGERY HEART CATHETERIZATION no stents MA ENDOMETRIAL CRYOABLATION REMOVAL BILIARY DUCT/GALLBLADDER CALCULI/DEBRIS PERCUTANEOUS [...] the morning GI prophylaxis. documented in this encounterWilson Memorial Hospital03-05-2024 Nurse Note* Nursing Notes - Marcella Lozano RN - 07/07/2023 4:10 PM EST Arrived to room [facility] from PACU. Bedside report received from RICARDO Jacobo. Oriented to room and provided call light. Admission assessment, head to toe and post op vitals initiated. Fresh ice water and crackers provided. Family members accompanying patient, denies additional needs, call light in reach. FAITH intact flashing green. [facility]03-05-2024 Nurse Note* Sara Garcia RN - 07/07/2023 4:00 PM EST Patient transferred to [facility] via cart in stable condition. Report given to RICARDO Kim. Cart left in locked and lowest position with side rails up x2. Snack and call light given to patient. Monitorsand alarms on and attached to patient. * Edison Perez RN - 07/07/2023 3:30 PM EST Patient transported to PACU with [facility]. Reports given to Sara SILVA at 1530H. * Whit Govea RN - 07/07/2023 2:04 PM EST OR 3 room temp: 65.1F Humidity: 44% Fire score of: 2 documented in this encounterWilson Memorial Hospital03-05-2024 Nurse Surgical operation note* Sara Garcia RN - 07/07/2023 4:00 PM EST Patient transferred to [facility] via cart in stable condition. Report given to RICARDO Kim. Cart left in locked and lowest position with side rails up x2. Snack and call light given to patient. Monitorsand alarms on and attached to patient. [facility]03-05-2024 Nurse Surgical operation note* Edison Perez RN - 07/07/2023 3:30 PM EST Patient transported to PACU with Damián TILLEY. Reports given to Sara SILVA at 1530H. [facility]03-05-2024 Surgery Postoperative evaluation and management note* Brief Op Note - MEDINA Richardson - 07/07/2023 3:28 PM EST POST OPERATIVE/PROCEDURE NOTE Bettie Burns 77 y.o. female [id number] SURGEON Surgeons and Role: * Miko Ohara MD - Primary EXTRACTOR PULLER MEDINA Richardson ANESTHESIOLOGIST SUPERVISOR NEWSPAPER DELIVERIES: Chance Ngo CRNA; PALAK Barrett SURGICAL STAFF Svp: Kisha Karimi RN; Whit Govea RN Nurse [...] Implant Name Type Inv. Item Serial No. Water Fitness Instructor Lot No. LRB No. Used Action ANCHORS, 5.5 NON PUNCHING - [id number] ANCHORS, 5.5 NON PUNCHING HIST ARTHREX [id number] Right 1 Implanted ANCHORS, 5.5 NON PUNCHING - [id number] ANCHORS, 5.5 NON PUNCHING HIST ARTHREX [id number] Right 3 Implanted SPECIMENS ID Type Source [...] Miko Ohara MD 07/07/2023 [id number] Paula Barrera APRN-PEDIATRIC RN July 07, 2023 3:28 PM 10-20 [employer]03-05-2024 Nurse Surgical operation note* Whit Govea RN - 07/07/2023 2:04 PM EST OR 3 room temp: 65.1F Humidity: 44% Fire score of: 2 10-20 [employer]03-05-2024 Nurse Note* Nursing Notes - Chelsea Bledsoe RN - 07/07/2023 10:52 AM EST Unable to doppler right dorsalis pedis pulse. 10-20 [employer]02-16-2024 Miscellaneous Notes* Telephone Encounter - Jacqueline Sparrow [...] to Dr Ohara office. documented in this encounterAshtabula [facility] Center02-16-2024 Telephone encounter Note* Telephone Encounter - Jacqueline [...] on risk, holding Eliquis and Celebrex question. [facility]02-16-2024 Telephone encounter Note* Telephone Encounter - Donna Diaz MD - 06/19/2023 12:01 PM EST Okay to proceed with surgery at moderate risk Can use Celebrex Hold Eliquis for 2 days resume after surgery [facility] Work Phone: [phone] Telephone encounter Note* Telephone Encounter - Jacqueline Sparrow RN - 06/19/2023 12:01 PM EST Clearance note faxed back to Dr Ohara office. [facility]02-15-2024 History of Present illness Narrative* Eva Landryclair - 06/18/2023 2:10 PM EST Ortho Nurse - Established Patient Intake Room#: room 3----- pt here today to review MRI results of the right hip, pt rates her pain on a scale of 3/10 today. Pt states most of her pain is on the side of the hip. Pt did have a R PAULA a year ago with Dr. Denver Hughes in [place]. Pt states she is looking for a second opinion due to having issues from this past surgery. Date: 06/18/2023 2:32 PM Patient: Bettie Burns MR#: [id number] : 1945 Age: 77 y.o. Referring Physician: [...] APPENDECTOMY BREAST LUMPECTOMY FOOT SURGERY HEART CATHETERIZATION MA ENDOMETRIAL CRYOABLATION REMOVAL BILIARY DUCT/GALLBLADDER CALCULI/DEBRIS PERCUTANEOUS [...] tendons as discussed in detail above. 3. Kwtvv-fw-nrwtzten amount of fluid along the lateral aspect [...] andmajor risks of revision surgery such as robby-prosthetic fracture, infection, component failure or loosening, nerve [...] scheduling an appointment for [facility] and the potential surgical date, and reviewing [...] APPENDECTOMY BREAST LUMPECTOMY FOOT SURGERY HEART CATHETERIZATION MA ENDOMETRIAL CRYOABLATION REMOVAL BILIARY DUCT/GALLBLADDER CALCULI/DEBRIS PERCUTANEOUS W/ IMAGE REMOVAL CATARACT (PEM) ROTATOR CUFF REPAIR History reviewed. No pertinent family history. Social History Socioeconomic History Marital status: Tobacco Use Smoking status: Never Smokeless tobacco: Never Social Determinants of Health Food Insecurity: No Food Insecurity (06/02/2023) [facility] Hunger Screening Within the past 12 months [...] Morphine Oxycodone Penicillins Tramadol documented in this [facility]01-30-2024 History of Present illness Narrative* Donna [...] issues. Past Medical History: Diagnosis Date [place] hx of Arrhythmia 12/2016 ATRIAL FIBRILLATION Arthritis Breast cancer [place] 11/14/2015 LEFT COVID-19 03/2020 History of bleeding ulcers Hypertension Migraines Pneumonia d/t covid Prolonged emergence from general anesthesia Visual impairment glasses No data recorded No data recorded No data recorded Past Surgical History: Procedure Laterality Date ABLATION OF DYSRHYTHMIC FOCUS Right nerve ablation, L4 and L5 Afib ablation with SHANICE - CRYO, Rhythmia, ICE N/A 09/28/2018 Performed by Amber Quiñonez MD at [facility] () ARTHROSCOPY REPAIR ROTATOR CUFF SHOULDER Right 05/16/2020 Performed by Melchor Rivera DO at [facility] ARTHROSCOPY SHOULDER Right 05/16/2020 Performed by Melchor Rivera DO at [facility] BREAST BIOPSY Left 2016 BREAST LUMPECTOMY Left 11/14/2015 WITH RADIATION BREAST SURGERY Left 2012 lumpectomy CATARACT EXTRACTION CHOLECYSTECTOMY COLONOSCOPY Coronary angiogram and left ventricular gram/pressure N/A 08/08/2021 Performed by Bertram Lal MD at [facility] CARDIAC CATH LABS EYE SURGERY lids lifted [...] STARKS MD Referring Physician: Elliot Starks MD [address] [place] [id number] documented in this encounterAshtabula County Medical Center01-11-2024 History of Present illness Narrative* Divine Boudreaux - 05/14/2023 9:30 AM EST Ortho Nurse - Patient 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 Referring Physician: Self, Self Insurance: Payor: MEDICARE AETZazom HMO OR PPO / Plan: MEDICARE AETNA [...] [x]cane, []bracing Are you followed by a job analysis manager? [x] [] Name: Dr. Waleska Zhu - oTrey Lowe Are you followed by pain management? [x] [] Name: Dr. Cedeno - Pain Mgmt @ [facility] Are you followed by any other specialists? [x] [] Name: Oncolgist - Dr. Choi [facility] Urologist - Dr. Christian Bourne [...] abductor muscles as well as ESR/CRP and Trona and Chromium labs today. I will see [...] APPENDECTOMY BREAST LUMPECTOMY FOOT SURGERY HEART CATHETERIZATION MA ENDOMETRIAL CRYOABLATION REMOVAL BILIARY DUCT/GALLBLADDER CALCULI/DEBRIS PERCUTANEOUS [...] Morphine Oxycodone Penicillins Tramadol documented in this [facility]11-27-2023 Evaluation note* Encounter Date Diagnosis Assessment [...] verbalizes understanding and agrees with tx plan. [employer] Other 10-11-2023 Hospital Discharge instructions Patient [...] provider. Document Revised: 08/29/2021 Document Reviewed: 08/29/2021 [employer] Patient Education 2022 [employer]. Follow Up Care 11/06/2022 15:31:52 With:Paul VILLEGAS, PERLA Araujo, URO Address: When:Within 3 Month(s) [facility] Jason 07-17-2023 Evaluation note* Encounter Date Diagnosis Assessment Notes Treatment Notes Treatment Clinical Notes Nov, Dysuria (ICD-10 - R30.0) [employer] Other 06-29-2023 Evaluation note* Encounter Date Diagnosis Assessment Notes Treatment Notes Treatment Clinical Notes Oct, Frequent UTI (ICD-10 - N39.0) Pt requests Urology referral. Discussed also getting CT to move along process. Oct, Dyshidrotic eczema (ICD-10 - L30.1) Will treat with steroid cream prn [employer] Other 06-26-2023 Evaluation note* Encounter Date Diagnosis Assessment Notes Treatment Notes Treatment Clinical Notes Oct, Dysuria (ICD-10 - R30.0) [employer] Other 05-11-2023 Miscellaneous Notes* Telephone Encounter - Matt Adams RN - 09/11/2022 11:43 AM EDT Order faxed to [facility] and pt is aware. Matt Adams RN * Telephone Encounter - Matt Adams RN - 09/11/2022 9:51 AM EDT Pt called to request yearly Mammogram order I have pended order as previously completed Pt requests to fax to Nori Lema [phone] BRM/HM: please review and sign if agreeable Matt Adams RN documented in [facility] Evaluation [facility]* Encounter Date Diagnosis Assessment Notes Treatment Notes Treatment Clinical Notes Aug, Dysuria (ICD-10 - R30.0) [employer] Other 03-16-2023 Evaluation note* Encounter Date [...] N32.81) chronic and improved on present med [employer] Other 02-20-2023 Evaluation note* Encounter Date Diagnosis Assessment Notes Treatment Notes Treatment Clinical Notes Jun, Dysuria (ICD-10 - R30.0) [facility] [employer] Other 02-03-2023 Evaluation note* Encounter Date Diagnosis Assessment Notes Treatment Notes Treatment Clinical Notes Jun, OAB (overactive bladder) (ICD-10 - N32.81) [employer] Other 02-01-2023 Evaluation note* Encounter Date Diagnosis Assessment Notes Treatment Notes Treatment Clinical Notes Jun, OAB (overactive bladder) (ICD-10 - N32.81) Patient request to try new medication reviewed side effect profile. Patient declines urology or PLANT BREEDER SCIENTIST referral at this time. Jun, Essential hypertension (ICD-10 - I10) reviewed and updated medications she will follow-up with cardiology in Jun, Hypokalemia (ICD-10 - E87.6) Reviewed and updated medications. Discussed foods that are high in potassium Jun, Right lumbar pain (ICD-10 - M54.50) Follow-up with Dr. Rivera as scheduled in June. She does have limping with her gait. [facility] Other 05-26-2022 Miscellaneous Notes* Telephone Encounter - Andrew Choi MD - 09/26/2021 5:13 PM EDT Okay to change to screening mammogram. Order signed. ASIYA Ford * Telephone Encounter - Mikaela Thompson RN - 09/26/2021 2:33 PM EDT Pt scheduled for diagnostic mamm tomorrow @ [facility]. Hospital calls to ask if this could be changed to a screening mammogram since the pt is greater than 2 years from diagnosis? Mikaela Thompson RN [facility] Future Appointments Appointment Date:05/27/2023 08:45:00 AM Scheduled Provider:Alfreda Miller MD Location:[facility] Appointment Type:URO Office Visit [facility] evaluation + Plan note Future Appointments Appointment Date:07/22/2024 10:30:00 AM Scheduled Provider: Location:[facility] Appointment Type:Urology CALL PAT FT Appointment Date:07/25/2024 08:15:00 AM Scheduled Provider: Location:[facility] Appointment Type:Urology FT [facility] evaluation + Plan note Future Appointments Appointment Date:07/22/2024 10:30:00 AM Scheduled Provider: Location:[facility] Appointment Type:Urology CALL PAT FT Appointment Date:07/25/2024 08:15:00 AM Scheduled Provider: Location:[facility] Appointment Type:Urology FT Diagnostic Tests Pending * Urine Culture 06/22/24 [facility] evaluation + Plan note Future Appointments Appointment Date:09/16/2024 11:30:00 AM Scheduled Provider: Location:[facility] Appointment Type:Urology CALL PAT FT Appointment Date:09/19/2024 08:00:00 AM Scheduled Provider: Location:[facility] Appointment Type:Urology FT [facility] evaluation note* Diagnosis Encounter for screening mammogram for malignant neoplasm of breast- Primary Other screening mammogram documented in this encounter [facility] note* Diagnosis Malignant neoplasm of upper-outer quadrant of left breast in female, estrogen receptor positive (HCC)- Primary documented in this encounter [facility] noteNo [facility]No[facility] [employer] Other Evaluation note* Diagnosis Encounter for screening mammogram for malignant neoplasm of breast- Primary Other screening mammogram documented in this encounter [facility] CenterEvaluation noteNo assessment information availableFirelands Regional Medical Center Work Phone: Evaluation note* Diagnosis Pain in prosthetic joint, initial encounter- Primary Primary osteoarthritis of right hip Primary localized osteoarthrosis, pelvic region and thigh [facility] Right hip pain- Primary Pain in joint, pelvic region and thigh Pre-op testing- Primary Preoperative examination, unspecified Essential (primary) hypertension Unspecified essential hypertension Abnormal finding of blood chemistry, unspecified Abnormal coagulation profile Tear of rotator cuff of right hip, initial encounter 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, initial encounter [facility] Diagnosis Status post revision of total hip- Primary Hip joint replacement by other means Pre-op testing Preoperative examination, unspecified Tear of rotator cuff of right hip, initial encounter 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, initial encounter Acute postoperative pain of right hip [facility] Diagnosis Tear of gluteus minimus tendon, right, initial encounter- Primary [facility] Diagnosis Right hip pain- Primary Pain in joint, pelvic region and thigh [facility] Diagnosis Onset Date Resolution Status Dysuria noneactive [facility] Work Phone: Evaluation note* Diagnosis Hx of total hip arthroplasty, right- Primary [facility] Diagnosis Paroxysmal atrial fibrillation (CMS-HCC)- Primary Atrial fibrillation Primary hypertension Unspecified essential hypertension Chronic coronary artery disease Coronary atherosclerosis of unspecified type of vessel, [place] or graft documented in this [facility]* Diagnosis Paroxysmal atrial fibrillation (CMS-HCC)- Primary Atrial fibrillation Unstable angina (CMS-HCC) Intermediate coronary syndrome SOB (shortness of breath) Shortness of breath documented in this [facility]* Diagnosis Hx of total hip arthroplasty, right- Primary [facility] Diagnosis Paroxysmal atrial fibrillation (CMS-HCC) Atrial fibrillation [facility] Diagnosis Paroxysmal atrial fibrillation (CMS-HCC) Atrial fibrillation [facility]* Diagnosis Primary hypertension- Primary Unspecified essential hypertension Coronary artery disease involving [place] coronary artery of [place] heart with unstable angina pectoris (CMS-HCC) documented in this encounter [facility]* Diagnosis Paroxysmal atrial fibrillation (CMS-HCC)- Primary Atrial fibrillation Benign hypertension Essential hypertension, benign documented [facility] encounter [facility] [...] replacement 12/16/2021 Hospitalization History SEE SURGICAL HX [facility] Other Hospital course Narrative No data available for this section [facility] Hospital Discharge instructions* Attachments The following attachments cannot be sent through Care Everywhere. * [facility] AMB SMOKING CESSATION LINKS [facility] Dis[facility] instructions No data available for this section [facility] InstructionsNot on filedocumented in this encounter [facility] [...] available for this section [facility] Jason reason for referral (narrative)* Diagnostic Procedure Only (Routine) - Pending Review Specialty Diagnoses / Procedures Referred By Russac t Referred To Contact [facility] Diagnoses Encounter for screening mammogram for malignant neoplasm of breast Procedures SHANE SCREENING W YAW SCREENING DIGITAL BREAST TOMOSYNTHESIS BI SCREENING MAMMOGRAPHY BI 2-VIEW BREAST INC Andrew Miguel MD [address] [place] [address] [place] [address] [place] [phone] Referral ID Status Reason Start Date Expiration Date Visits Requested Visits Authorized [id number] Pending Review Auto-Generat ed Referral 09/26/2021 10/26/[address] [facility] for referral (narrative)* Diagnostic Procedure Only (Routine) - Pending Review Specialty Diagnoses / Procedures Referred By Juan t Referred To Contact [facility] Diagnoses Encounter for screening mammogram for malignant neoplasm of breast Procedures SHANE SCREENING W YAW SCREENING DIGITAL BREAST TOMOSYNTHESIS BI SCREENING MAMMOGRAPHY BI 2-VIEW BREAST INC Andrew Miguel MD [address] [place] [address] [place] [address] [facility] [address] [place] [phone] Referral ID Status Reason Start Date Expiration Date Visits Requested Visits Authorized [id number] Pending Review Auto-Generat ed Referral 09/11/2022 10/11/[address] [facility] for referral (narrative)* (Routine) Specialty Diagnoses / Procedures Referred By Russac t Referred To Contact [facility] RE[facility] LOC [address] [place] [address] Referral ID Status Reason Start Date Expiration Date Visits Re quested Visits Authorized [facility] for referral (narrative)* Consultation (Routine) - Patient to Arrange Specialty Diagnoses / Procedures Referred By Contac t Referred To Contact Physical Therapy Diagnoses Right hip pain Divine Dougherty [address] [place] [address] Referral ID Status Reason Start Date Expiration Date V isits Requested Visits Authorized [id number] Patient to Arrange 08/20/2023 09/13/2024 1 1 Scheduling Instructions . * Diagnostic X-Ray (Routine) - New Request Specialty Diagnoses / Procedures Referred By Contac t Referred To Contact Diagnoses Right hip pain Procedures XR HIP WITH PELVIS RIGHT Divine Dougherty [address] [place] [address] Referral ID Status Reason Start Date Expiration Date V isits Requested Visits Authorized [id number] New Request 08/20/2023 09/13/2024 1 1 [facility] for referral (narrative)* Diagnostic Procedure Only (Routine) - Pending Review Specialty Diagnoses / Procedures Referred By Contac t Referred To Contact [facility] Diagnoses Encounter for screening mammogram for malignant neoplasm of breast Procedures SHANE SCREENING W YAW SCREENING DIGITAL BREAST TOMOSYNTHESIS BI SCREENING MAMMOGRAPHY BI 2-VIEW BREAST INC Andrew Miguel MD [address] [place] [address] [place] [address] [facility] [address] [place] [phone] Referral ID Status Reason Start Date Expiration Date Visits Requested Visits Authorized [id number] Pending Review Auto-Generat ed Referral 09/17/2023 10/16/[address] [facility] for visit Narrative* Diagnostic X-Ray (Routine) - New Request Specialty Diagnoses / Procedures Referred By Contac t Referred To Contact Diagnoses Hx of total hip arthroplasty, right Procedures XR HIP WITH PELVIS RIGHT Paula Barrera APRN-AUSTEN [address] [place] [address] Phone: tel: fax: Referral ID Status Reason Start Date Expiration Date V isits Requested Visits Authorized [id number] New Request 07/12/2024 08/06/2025 1 1 [facility] Summary Purpose Family History No Family History Records Found Relationship Condition Age at Onset Recorded Date/T nilam father Unknown mother Unknown Advance Directives No Advanced Directives Records FoundDocuments on File Type Date Recorded 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 Advance Directives/Living Will 06/25/2023 9:17 AM DURABLE POWER OF SOLAR MANUFACTURER'S REPRESENTATIVE FOR HEALTHCARE 06/25/23 Advance Directives/Living Will 06/25/2023 [...] Documents on File Type Date Recorded 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 Living Will 05/21/2020 9:37 AM Durable Power of Rural Health Consultant 05/21/2020 9:27 AM Durable Power of Rural Health Consultant 05/16/2020 6:05 AM Living Will 05/16/2020 [...] HIP WITH PELVIS RIGHT Miko Ohara MD [address] [place] [address] Referral ID Status Reason Start Date Expiration Date V isits Requested Visits Authorized [id number] New Request 11/16/2023 12/10/2024 1 1 Specialty Diagnoses / Procedures Referred By Contac t Referred To Contact Diagnoses Tear of gluteus minimus tendon, right, initial encounter Procedures XR HIP WITH PELVIS RIGHT Divine Dougherty [address] [place] [address] Referral ID Status Reason Start Date Expiration Date V isits Requested Visits Authorized [id number] New Request 07/20/2023 08/13/2024 1 1 Specialty Diagnoses / Procedures Referred By Contac t Referred To Contact Diagnoses Pain in prosthetic joint, initial encounter Procedures MRI HIP RIGHT WITHOUT CONTRAST MA MRI LOWER EXTREM JT, W/O CONTRAST Miko Ohara MD [address] [place] [address] Referral ID Status Reason Start Date Expiration Date V isits Requested Visits Authorized [id number] New Request 05/14/2023 06/07/2024 1 1 Specialty Diagnoses / Procedures Referred By Contac t Referred To Contact Diagnoses Pain in prosthetic joint, initial encounter Procedures COBALT AND CHROMIUM,WB Miko Ohara MD [address] [place] [address] Referral ID Status Reason Start Date Expiration Date V isits Requested Visits Authorized [id number] New Request 05/14/2023 06/07/2024 1 1 Specialty Diagnoses / Procedures Referred By Juan wren Referred To Contact Diagnoses Primary osteoarthritis of right hip Procedures XR HIP WITH PELVIS RIGHT Miko Ohara MD [address] [place] [address] Referral ID Status Reason Start Date Expiration Date V isits Requested Visits Authorized [id number] New Request 05/06/2023 05/30/2024 1 1 Reason *FU 11/12 [place] office Diagnosis 1 Frequent UTI (N39.0) Referral Organization [facility] Referring Provider First Name Elliot Referring Provider Last Name Raudel Referring Provider Specialty Family [facility] Referred Organization [facility] Referred Provider ALFREDA MILLER Referred Address [address] [place], [place],[address] Referred Provider Specialty Urology Referral Priority Routine [...] section and content) DATE CREATED AUTHOR 10/28/2017 [facility] DATE CREATED AUTHOR AUTHOR'S ORGANIZ ATION 03/21/2020 [facility] DATE CREATED AUTHOR AUTHOR'S ORGANIZ ATION 09/13/2021 [facility] dical Specialist DATE CREATED AUTHOR AUTHOR'S ORGANIZ ATION 06/11/2022 [facility] [place] [facility] DATE CREATED AUTHOR AUTHOR'S ORGANIZ ATION 11/18/2022 [facility] DATE CREATED AUTHOR AUTHOR'S ORGANIZ ATION 05/20/2023 [facility] DATE CREATED AUTHOR AUTHOR'S ORGANIZ ATION 09/19/2023 [facility] DATE CREATED AUTHOR AUTHOR'S ORGANIZ ATION 10/01/2023 [facility] DATE CREATED AUTHOR AUTHOR'S ORGANIZ ATION 06/24/2024 [facility] DATE CREATED AUTHOR AUTHOR'S ORGANIZ ATION 06/26/2024 [facility] DATE CREATED AUTHOR AUTHOR'S ORGANIZ ATION 07/17/2024 [facility] DATE CREATED AUTHOR AUTHOR'S ORGANIZ ATION 08/31/[address] [facility] DATE CREATED AUTHOR AUTHOR'S ORGANIZ ATION 09/13/2024 [facility] DATE CREATED AUTHOR AUTHOR'S ORGANIZ ATION 09/18/2024 [facility] DATE CREATED AUTHOR AUTHOR'S ORGANIZ ATION 10/25/2024 [facility] ical Center Source Comments (unrecognize d section and content) In the event this informatio n is protected by the Federal Confidentiality of Alcohol and Drug Abuse Patient Records regulations: The Federal rules restrict any use of the information to criminally investigate or prosecute any alcohol or drug abuse patient.[facility] CenterIn the event this information is protected by the Federal Confidentiality of Alcohol and Drug Abuse Patient Records regulations: The Federal rules restrict any use of the information to criminally investigate or prosecute any alcohol or drug abuse patient.[facility] CenterIn the event this information is protected by the Federal Confidentiality of Alcohol and Drug Abuse Patient Records regulations: The Federal rules restrict any use of the information to criminally investigate or prosecute any alcohol or drug abuse patient.[facility] CenterIn the event this information is protected by the Federal Confidentiality of Alcohol and Drug Abuse Patient Records regulations: The Federal rules restrict any use of the information to criminally investigate or prosecute any alcohol or drug abuse patient.[facility] Reason for Visit (unrecogniz ed section and content) Reason Comments Radiology Mammogram Reason Comments Lab Orders Reason Comments Orders Specialty Diagnoses / Procedures Referred By Contac t Referred To Contact Diagnoses Primary osteoarthritis of right hip Procedures XR HIP WITH PELVIS RIGHT Miko Ohara MD [address] [place] [address] Referral ID Status Reason Start Date Expiration Date V isits Requested Visits Authorized [id number] New Request 05/06/2023 05/30/2024 1 1 Reason [...] right hip prosthesis, initial encounter [T84.090A] Procedures MA PELVIS/HIP JOINT SURGERY UNLISTED MA REVISE TOTAL HIP REPLACEMENT GLUTEUS MEDIUS TENDON REPAIR REVISION ARTHROPLASTY HIP BOTH ACETABULAR & FEMORAL COMPONENTS Miko Ohara MD [address] [place] [address] Referral ID Status Reason Start Date Expiration Date Visits Re quested Visits Authorized [id number] 06/19/2023 1 1 Reason Comments Post Op Visit Specialty Diagnoses / Procedures Referred By Juan wren Referred To Contact Diagnoses Tear of gluteus minimus tendon, right, initial encounter Procedures XR HIP WITH PELVIS RIGHT Divine Dougherty [address] [place] [address] Referral ID Status Reason Start Date Expiration Date V isits Requested Visits Authorized [id number] New Request 07/20/2023 08/13/2024 1 1 Reason Comments Follow-up Specialty Diagnoses / Procedures Referred By Juan wren Referred To Contact Diagnoses Right hip pain Procedures XR HIP WITH PELVIS RIGHT Divine Dougherty [address] [place] [address] Referral ID Status Reason Start Date Expiration Date V isits Requested Visits Authorized [id number] New Request 08/20/2023 09/13/2024 1 1 Reason Comments Yearly Exam With Mammogram Reason Comments Pain Specialty Diagnoses / Procedures Referred By Juan wren Referred To Contact Diagnoses Hx of total hip arthroplasty, right Procedures XR HIP WITH PELVIS RIGHT Miko Ohara MD [address] [place] [address] Referral ID Status Reason Start Date Expiration Date V isits Requested Visits Authorized [id number] New Request 11/16/2023 12/10/2024 1 1 Reason [...] Care Teams (unrecognized sec tion and content) Pleat Patternmaker Relationship Specialty Start Date End Date Elliot Starks MD [address] [place] [phone] PCP - General Family Practice 11/26/15 Pleat Patternmaker Relationship Specialty Start Date End Date Elliot Starks MD [address] [place] [address] PCP - General Family Practice 11/26/15 Pleat Patternmaker Relationship Specialty Start Date End Date Elliot Starks MD [address] [place] [address] PCP - General Family Medicine 11/26/15 Team Status: Inactive Member Role Status Dates Elliot Starks MD Attending Provider Active Pleat Patternmaker Relationship Specialty Start Date End Date Elliot Starks MD [address] [place], [place] [id number] PCP - General Family Medicine 05/11/23 Pleat Patternmaker Relationship Specialty Start Date End Date Elliot Starks MD [address] [place] [address] [place] [address] PCP - General Family Medicine 05/11/23 Pleat Patternmaker Relationship Specialty Start Date End Date Elliot Starks MD [address] [place], [place] [phone] PCP - General Family Medicine 05/11/23 Pleat Patternmaker Relationship Specialty Start Date End Date Elliot Starks MD [address] [place], [place] [phone] PCP - General Family Medicine 05/11/23 Pleat Patternmaker Relationship Specialty Start Date End Date Elliot Starks MD [address] [facility] [place] [address] PCP - General Family Medicine 05/11/23 Pleat Patternmaker Relationship Specialty Start Date End Date Elliot Starks MD [address] [facility] [place] [address] PCP - General Family Medicine 05/11/23 Pleat Patternmaker Relationship Specialty Start Date End Date Elliot Starks MD [address] [facility] [place] [address] PCP - General Family Medicine 05/11/23 Pleat Patternmaker Relationship Specialty Start Date End Date Elliot Starks MD [address] [facility] [place] [address] PCP - General Family Medicine 05/11/23 Pleat Patternmaker Relationship Specialty Start Date End Date Elliot Starks MD [address] [place] [address] PCP - General Family Medicine 11/26/15 Team [...] May 09, 2024 End: May 09, 2024 Pleat Patternmaker Relationship Specialty Start Date End Date Elliot Starks MD [address] [place] [address] PCP - General 03/17/17 Pleat Patternmaker Relationship Specialty [place] [address] [place] [address] PCP - General 07/15/23 Pleat Patternmaker Relationship Specialty [place] [address] [place] [address] PCP - General 03/17/17 Pleat Patternmaker Relationship Specialty [place] [address] [place] [address] PCP - General 03/17/17 Pleat Patternmaker Relationship Specialty [place] [address] [place] [address] PCP - General 07/15/23 Pleat Patternmaker Relationship Specialty Start Date End Date Elliot Starks MD [address] [place] [address] PCP - General 07/15/23 Pleat Patternmaker Relationship Specialty Start Date End Date Elliot Starks MD [address] [place] [address] PCP - General 07/15/23 Team Status: Active Member Role Status Dates Elliot Starks MD Primary Care Provide r, Attending Provider Active Start: May 11, 2024 Team Status: Inactive Member Role Status Dates Elliot Starks MD Primary Care Provider Active Start: June 21, 2024 End: June 21, 2024 Chinedu Farley DO Attending Provider Active Sta rt: June 21, 2024 End: June 21, 2024 Pleat Patternmaker Relationship Specialty [place] [address] [place] [address] PCP - General Family Medicine 05/11/23 Pleat Patternmaker Relationship Specialty Start [place] [address] [place] [address] PCP - General Family Medicine 05/11/23 Pleat Patternmaker Relationship Specialty [place] [address] [place] [address] PCP - General 07/15/23 Pleat Patternmaker Relationship Specialty [place] [address] [place] [address] PCP - General 07/15/23 Pleat Patternmaker Relationship Specialty [place] [address] [place] [id number] PCP - General 07/15/23 Goals (unrecognized section [...] Aidee Field RN)0109 (Stopped - Provider: Aidee Field, RICARDO) Continuous Medication Order 07/06/2023 07/07/2023 2023 Lactated ringers IV solution (CANCELED) Intravenous, at 75 mL/hr, CONTINUOUS, Starting on Thu07/07/23 at 1015, Until Thu07/07/23 at 1609, Pre-op/Pre-Proc 1043 ($$New Bag$$ - Provider: Chelsea Bledsoe RN)1514 ($$New Bag$$ - Provider: Damián Saenz APRN-SUPERVISOR [employer] DELIVERIES)1647 (Stopped - Provider: Aidee Field RN) Sodium [...] 1637, Until 07/08/23 at 1920, constipation, Post-op/Post-Proc ceFAZolin (ANCEF) 2 g in dextrose 100 mL premix IVPB (COMPLETED) 2 g, Intravenous, Administer over 15 Minutes, HOTEL RECREATIONAL FACILITIES MANAGER TO PROCEDURE, 1 dose, Starting on Thu07/07/23 at 1003, Until Thu07/07/23 at 1409, Other, Pre-operative antibiotic, Pre-op/Pre-Proc 1354 (Given - Provider: Melchor Holcomb APRN-SUPERVISOR NEWSPAPER DELIVERIES) HYDROmorphone (DILAUDID) injection 0.5 mg 0.5 mg, [...] Post-op/Post-Proc 164 (Given - Provider: Marcella Lozano RN)3 (Given - Provider: Aidee Field RN) senna-docusate [...] BE BASED ON THE PRIMARY CLINICAL RECORDS. [employer] provides no warranty or guarantee of the accuracy or completeness of information in this document.
== END 2024-10-26 08:40 | disposition home or self-care (01) ==
PROVIDERS: PCP Family Medicine; Visit Provider Nurse Practitioner
DX: M46.1 Sacroiliitis, not elsewhere classified (principal); M54.50 Low back pain, unspecified
CPT/HCPCS: G0463

== ENCOUNTER 2024-10-31 06:50 | Day surgery (SDC) | payer MEDICARE, SELFPAY ==
--- OUTSIDE RECORDS SUMMARY | 2024-10-31 06:53 | XMS_ITS | Encounter Summary ---
Author Organization [facility] Address [address] [facility] [place] [address] Care Team Providers Care Door Glass Installer Name Role Phone Marine Glass MD Primary Care Provider [phone] Encounter Details Date Type Department Care Team (Late st Contact Info) Description 10/13/2022 Orders Only [facility] [address] [place] [address] Fabi De Anda DDD (degenerative [...] disc documented in this encounter Care Teams Door Glass Installer Relationship Specialty Start Date End Date Marine Glass MD PCP - General Family Medicine 09/26/22 documented as of this encounter
--- OUTSIDE RECORDS SUMMARY | 2024-10-31 06:53 | XMS_ITS | Clinical Summary ---
Author Organization [facility] Address [address] [place] [address] Care Team Providers Care Assistant Business Manager Name Role Phone Marine Glass MD Primary Care Provider [phone] Allergies Active Allergy Reactions Criticality Noted Date [...] 02/05/2017 Insurance [employer] MEDICARE ADVANTAGE Care Teams Assistant Business Manager Relationship Specialty Start Date End Date Marine Glass MD PCP - General Family Medicine 09/26/22
--- OUTSIDE RECORDS SUMMARY | 2024-10-31 06:53 | XMS_ITS | Encounter Summary ---
Author Organization [facility] Address [address] [place] [address] Care Team Providers Care Lead Embedded Software Engineer Name Role Phone Marine Glass MD Primary Care Provider [phone] Encounter Details Date Type Department Care Team (Late st Contact Info) Description 09/26/2022 Abstract [facility] [address] [place] [address] Melchor Rivera DO [address] [place] [address] Social History Tobacco Use Types Packs/Day Years [...] on filedocumented in this encounter Care Teams Lead Embedded Software Engineer Relationship Specialty Start Date End Date Marine Glass MD PCP - General Family Medicine 09/26/22 documented as of this encounter
--- OUTSIDE RECORDS SUMMARY | 2024-10-31 06:53 | XMS_ITS | Clinical Summary ---
Author Organization [facility] [employer] Address [address] [place] [address] Care Team Providers Care Yarn Sizer Name Role Phone Marine Glass MD Primary Care Provider [phone] Allergies Active Allergy Reactions Criticality Noted Date [...] 1 month, then 2x/week for maintainence, [facility]/pharmacy #[id number], 165, cm, 02/11/23 10:41:00 [...] = 0.6 oz pur e alcohol) social [facility] Utilities Answer Date Recorded In the past 12 months has th e Sold, gas, oil, or water [employer] threatened to shut off services in your [...] place to sleep or slept in a half-way (including now)? No 07/07/2023 Comments Unknown Sex [...] this topic Medical Devices Implanted Type Area Coding Director Device Identifier Shelf Expiration Date Model / Serial / Lot Anchors, 5.5 Non Punching - [id number] Implanted:Qty: 1 on 07/07/2023 by Miko Pascual MD at [facility] Right: Hip [employer] 10/31/2026 [id number] / / [id number] Anchors, 5.5 Non Punching - [id number] Implanted:Qty: 3 on 07/07/2023 by Miko Pascual MD at [facility] Right: Hip [employer] 05/03/2027 [id number] / / [id number] Procedures Procedure Name Priority Date/Time Associated Diagnosis Comments BASIC METABOLIC PANEL Today 2023 4:48 AM EST from Last 3 Months or Most Recently Relevant to Health Maintenance Results * (ABNORMAL) BASIC METABOLIC PANEL (2023 4:48 AM EST) Glucose 141(H) 70 - 100 MG/DL [address] Comment: NORMAL <100 mg/dL PREDIABETES 101-126 mg/dL DIABETES 126 mg/dL or higher BUN 30(H) 7 - 20 MG/DL [address] CREATININE SERUM 1.10 0.70 - 1.20 MG/DL [address] SODIUM 134(L) 137 - 145 MMOL/L [address] Potassium 3.8 3.5 - 5.1 MMOL/L [address] CHLORIDE 103 98 - 107 MMOL/L [address] Comment:Please note: Triglyc eride levels of 600mg/dL or higher may positively bias chloride results by approximately 2.1 mmol CARBON DIOXIDE (CO2) 30 22 - 30 MMOL/L [address] ANION GAP 1 MMOL/L [address] CALCIUM 8.7 8.4 - 10.2 MG/DL [address] ESTIMATED GFR, NON AMER 51 ml/min/1. 73sq.m [address] ESTIMATED GFR, 62 ml/min/1. 73sq[address]m [address] GFR COMMENT Average GFR for 70+ years old = 75. [address] Comment: Chronic Kidney disease, GFR = <60. Kidney failure, GFR = <15. The GFR estimate is not adjusted for extreme body surface area or acute process, nor has it been validated for women or ethnic groups other than and . Blood 2023 4:48 AM EST 2023 5:12 AM EST us Chance Mahoney MD CHEMISTRY ORDERABLES Final Resul t [address] [id number] from Last 3 Months or Most Recently Relevant to Health Maintenance Insurance MEDICARE [employer] PPO Advance Directives For more information, please contact: [phone] (7:30 AM - 6PM [facility], Thursday-Thursday) Documents on File Type Date Recorded Patient Summer Babysitter Expl anation Advance Directives/Living Will 06/25/2023 9:17 AM DURABLE POWER OF MEDICAL RECORDS COORDINATOR FOR HEALTHCARE 06/25/23 Advance Directives/Living Will 06/25/2023 9:13 AM LIVING WILL 06/25/23 * Full Code (Latest Code Status on File) Date Activated Date Inactivated Comments 07/07/2023 3:27 PM Care Teams Yarn Sizer Relationship Specialty Start Date End Date Marine Glass MD PCP - General Family Medicine 05/11/23
--- OUTSIDE RECORDS SUMMARY | 2024-10-31 06:54 | XMS_ITS | CCD ---
Author Organization [facility] CliniSy[facility]v Care Team Providers Care Moccasin Sewer Name Role Phone PHYSICIAN, DEFAULT Unavailable Unavailable PHYSICIAN, DEFAULT Unavailable Unavailable Elliot Starks MD Primary Care Provider [phone] RAUDEL, DR ELLIOT Nayak Primary Care Unavailable [...] Care Provider MD Elliot Starks Attending Provider [phone] Elliot Starks Admitting Unavailable Elliot Starks Attending Unavailable ELLIOT STARKS Primary Care Physician [phone] Elliot Starks MD Primary Care Provider [phone] Melchor Rivera Admitting Unavail able Melchor Rivera [...] PAULA Referring Unavailable SELF, SELF Referring Unavailable AMAIR, PAULA Attending Unavailable STARKS, ELLIOT Primary Care Unavailable MIKO OHARA Attending Unavailable MAYDA, MIKO Referring Unavailable STARKS, ELLIOT Primary Care Unavailable SELF, SELF Referring Unavailable MIKO OHARA Attending Unavailable STARKS, ELLIOT Primary Care Unavailable BROCWELL, DIVINE M Referring Unavailable STARKS, ELLIOT Primary Care Unavailable BROCWELL, DIVINE M Attending Unavailable Elliot Starks MD Primary Care Provider Giclaudy VILLEGAS, Andrius Dietz Attending Unavailable Giclaudy VILLEGAS, Andrius Vytdannielle Attending Unavailable Giedilana VILLEGAS, Andrius J Luis Attending Unavailable Alfreda Miller Attending Unavailable Jean Pierre MARTE Admitting Unavailable Jean Pierre MARTE Attending Unavailable Maria E Osman Attending Unavailable Alfreda Miller Referring Unavailable Maria E Osman Attending Unavailable Alfreda Miller Referring Unavailable Alfreda Miller Admitting Unavailable Alfreda Miller Attending Unavailable Allergies Allergy Classification Reported Allergen(s) Allergy Type Date of Onset Reaction(s) Facility (20 sources) Acetaminophen / HYDROcodone; Translations: [HYDROCODONE-ACET AMINOPHEN] Drug Allergy 03-19-20 17 Unknown, Itching, Nausea Only, Rash [facility] (20 sources) Baclofen; Translations: [baclofen] Drug Allergy 03-19-20 17 Unknown, Itching, Rash [facility] (20 sources) Codeine; Translations: [codeine] Drug Allergy 08-09-19 09 Unknown, Itching, Rash [facility] (20 sources) levoFLOXacin; Translations: [levofloxacin] Drug Allergy 03-19-20 17 Unknown, Itching, Nausea Only, Rash [facility] (20 sources) Morphine; Translations: [morphine] Drug Allergy 08-09-19 09 Hives [facility] (16 sources) oxyCODONE Drug Allergy 12-03-19 16 [facility] (10 sources) Penicillins; Translations: [PENICILLINS] Drug Allergy 12-03-19 16 Hives, Rash [facility] (1 source) Baclofen Drug Allergy [facility] (1 source) Codeine Drug Allergy [facility] (17 sources) levoFLOXacin; Translations: [Levaquin] Drug Allergy Unknown [facility] (1 source) Morphine Drug Allergy 05-04-18 94 [facility] (1 source) oxyCODONE Drug Allergy 05-04-19 05 [facility] (1 source) Penicillins Drug allergy (disorder) 05-04-18 93 [facility] (6 sources) traMADol; Translations: [Ultram] Drug Allergy [facility] (11 sources) Codeine Drug Allergy Unknown [employer] Other (20 sources) Penicillin; Translations: [penicillin] Drug Allergy Unknown [facility] (20 sources) traMADol; Translations: [tramadol] Drug Allergy 07-13-19 20 Itching [facility] (20 sources) zolpidem; Translations: [zolpidem] Drug Allergy 07-04-19 23 Unknown, Hives [facility] (11 sources) Penicillins Drug Allergy 12-03-19 16 Hives, Rash [facility] (1 source) Non-steroidal anti-inflammatory agent Drug allergy 02-02-20 13 Unknown [employer] Other (20 sources) sulfADIAZINE; Translations: [SULFADIAZINE] Drug Allergy 07-04-19 23 Comment:Sulfa [facility] (1 source) Ultram *ANALGESICS - OPIOID* Propensity to adverse reactions Unknown [employer] Other (1 source) Vioxx *ANALGESICS - ANTI-INFLAMMATORY * Propensity to adverse reactions Unknown [employer] Other (1 source) Penicillin G Benzathine & Proc Drug allergy Unknown [employer] Other (1 source) Morphine Sulfate (Concentrate) *ANALGESICS - OPIOI Propensity to adverse reactions Unknown [facility] [employer] Other (1 source) Allergies Reconciled Propensity to adverse reactions Unknown [facility] [employer] Other (1 source) patient allergy list reviewed by nurse or physicia Propensity to adverse reactions 02-02-20 13 Comment:Done [employer] Other (1 source) Vicodin *ANALGESICS - OPIOID* Propensity to adverse reactions Unknown [employer] Other (5 sources) calcitonin Drug allergy 10-28-19 24 Unknown, [facility] (12 sources) Penicillins Propensity to adverse reactions to drug 05-14-19 24 [facility] (1 source) Acetaminophen / HYDROcodone; Translations: [Vicodin] Drug Allergy [facility] (1 source) Adhesive Tape; Translations: [Tape] Propensity to adverse reactions (disorder) [facility] (10 sources) Latex Propensity to adverse reactions to drug 06-19-19 24 [facility] (10 sources) *Adhesive Tape Propensity to adverse reactions 07-04-19 23 [facility] (8 sources) Cephalexin Drug Allergy 07-09-19 24 Nausea Only, Dry Mouth, Flushing [facility] (15 sources) Adhesive agent; Translations: [ADHESIVE] Propensity to adverse reactions to drug (disorder) 07-04-19 23 [facility] (19 sources) rofecoxib; Translations: [ROFECOXIB] Drug Allergy 07-04-19 23 [facility] (15 sources) PENICILLIN G BENZATHIN,PROCAIN ; Translations: [PENICILLIN G BENZATHIN,PROCAIN ] Propensity to adverse reactions to drug (disorder) 07-04-19 23 [facility] (4 sources) Acetaminophen Drug Allergy 10-28-19 24 [facility] (4 sources) HYDROcodone Drug Allergy 10-28-19 24 [facility] (4 sources) Penicillin G Benzathine Allergy to substance 10-28-19 [facility] (4 sources) Morphine; Translations: [Morphine Sulfate] Drug Allergy [facility] (4 sources) zolpidem; Translations: [Ambien] Drug Allergy [facility] (2 sources) Penicillins Propensity to adverse reactions to drug 12-03-19 Rash, Hives [facility] Medications Current [...] Repeat number: 1 take 2 tablets by [facility] every twelve hours apixaban 2.5 MG tablet Take 2 tablets by mouth every 12 hours. Active apixaban 2.5 MG tablet Take by mouth every 12 hours. 0 Active Comment on above: Take 5 mg by mouth t wice daily. ascorbic acid 226 mg / beta carotene 40965 unt / cuprous oxide 0.8 mg / dl-alpha tocopheryl acetate 200 unt / zinc oxide 34.8 mg oral capsule (7 sources) Vitamin C Start: 10-28-2023 take 1 capsule by mouth in the morning vitamins A,C,R-aloc-bczcoc (ICAPS AREDS) 4,296 mcg-226 mg-90 mg capsule [...] 07/07/2023 Active estradiol 0.1 mg/ml vaginal cream (10 sources) Estrogen Start: 09-19-2024 Estrace 0.1 mg/g Cream See Instructions, 42.5 gm, Refill(s) 2, Apply pea sized amount to urethra/vagina 3x a week for 1 month, then 2x a week afterwards, [facility]/pharmacy #[id number], 165, cm, 06/22/24 13:05:00 EST, Height/Length Dosing, 80.7, kg, 06/22/24 13:05:00 EST, Weight Dosing Start Date: 09/19/24 Status: Ordered Quantity: 42.5 Unit: g Repeat number: 3 Indications: Postmenopausal atrophic vaginitis; Urinary tract infection, site not specified; Start: 02-11-2023 ESTRACE VAGINA L 0.1 MG/GM cream See Instructions, 42.5 gm, Refill(s) 3, apply pea size amount to urethra/inner vagina 3x/week x 1 month, then 2x/week for maintainence, [facility]/pharmacy #[id number], 165, cm, 02/11/23 10:41:00 EDT, Height/Length Dosing, 77.5, kg, 02/11/23 10:41:00 EDT, Weight Dosing 02/11/2023 Active Start: 02-11-2023 Estrace 0.1 mg /g Cream See Instructions, 42.5 gm, Refill(s) 3, apply pea size amount to urethra/inner vagina 3x/week x 1 month, then 2x/week for maintainence, [facility]/pharmacy #[id number], 165, cm, 02/11/23 10:41:00 EDT, [...] sources) Thiazide Diuretic Start: 2022 End: 2024 take 1 mg by mouth once daily [...] Daily, # 30 tab(s), Refills(s) 11, Pharmacy: [facility]/pharmacy #[id number], 165, cm, 02/11/23 10:41:00 EDT, Height/Length Dosing, 77.5, kg, 02/11/23 10:41:00 EDT, Weight Dosing Start Date: 02/11/23 Status: Ordered Multiple Vitamin (multivitamin) capsule (8 sources) take 1 capsule by mouth once daily Multiple Vitamin (multivitamin) capsule Take 1 capsule by mouth daily. Active Aleve (20 sources) Nonsteroidal Anti-inflammatory Drug Start: 06-22-19 Aleve [...] needed for pain. Active Neuveria Vitamin OTC (5 sources) Start: 06-22-2024 Neuveria Vitam in OTC [...] needed. traZODone hydrochloride 50 mg oral tablet (7 sources) Serotonin Reuptake Inhibitor Start: 06-22-2024 traZODONE [...] Mixed incontinence Trospium Chlorid e Active Vitamins A,C,J-Kjya-Rhuzpj (Preservision Areds) 4,296 mcg-226 mg-90 mg capsule (4 sources) Start: 10-28-2023 take 1 capsule by mouth twice daily Vitamins A,C,D-Pwwa-Psffja (Preservision Areds) 4,296 mcg-226 mg-90 mg capsule Active 1 CAP PO Twice daily October 27, 2023 11:00pm Start: 10-28-2023 take 1 capsule by [facility] twice daily Vitamins A,C,Z-Smbg-Hshfor (Preservision Areds) 4,296 mcg-226 mg-90 mg capsule [...] Start: 07-07-2023 take 2 tablets by [facility] every four hours as needed Acetaminophen 325 [...] Until Discontinued, Post-op/Post-Proc cycloSPORINE Opth 0.05% Emul (5 sources) Start: 06-22-2024 cycloSPORINE Opth 0.05% Emul [...] Post-op/Post-Proc docusate sodium 50 mg / sennosides, skilled nursing 8.6 mg oral tablet (1 source) Start: [...] (20 sources) Start: 06-22-2024 Potassium Chlo ride (Zxi-Edmf-Xul 10) 10 mEq oral tablet, extended release 10 mEq = 1 tab(s), Refills(s) 0 Start Date: 06/22/24 Status: Ordered Repeat number: 1 Start: 06-22-2024 Potassium Chlo ride (Yoz-Vpdo-Zqw 10) 10 mEq oral tablet, extended release [...] to other specified organisms Episodic Allergic reactions (7 sources) Eczema 02-05-2023 Episodic Anal and rectal conditions (7 sources) Disorder of rectum 02-05-2023 Episodic Anxiety disorders (3 sources) Acute stress disorder; Translations: [Acute stress reaction] 02-08-2024 Chronic Calculus of urinary tract (2 sources) History of calculus of kidney; Translations: [Personal history of urinary calculi] Onset: 10-26-2024 Episodic Cancer of breast (10 sources) Unspecified [...] 04-29-2022 Chronic Genitourinary symptoms and ill-defined conditions (12 sources) Mixed incontinence; Translations: [Incontinence] Onset: 02-11-2023 [...] Chronic Other aftercare (1 source) Other terminal makeup operator (current) drug therapy; Translations: [OTH ASSEMBLIES AND INSTALLATIONS INSPECTOR CURRENT DRUG THERAPY] Onset: 06-11-2022 Episodic Other aftercare (3 sources) Long-term current use of anticoagulant; Translations: [salvage determiner (current) use of anticoagulants] Onset: 02-11-2023 Episodic [...] of mental health and substance abuse codes (11 sources) Personal history of nicotine dependence; Translations: [...] Translations: [CONTACT W/AND (SUSP) EXPOS COVID-19] Onset: 02-08-2023 Unclassified (7 sources) Drug therapy finding 02-11-2023 Unclassified (1 [...] disease (18 sources) Atherosclerotic heart disease of [place] coronary artery without angina pectoris; Translations: [Coronary [...] Interpretation Reference Range Facility Ambulatory Visit Summaryon 0 10-26-2024 Ambulatory Visit Summary Ambulatory Visit Summary BETTIE BURNS :1945 Visit Date:10/26/2024 Ambulatory Visit Instructions Your Diagnosis Mixed incontinence Frequent UTI History of kidney stones Microscopic hematuria Anticoagulated History of breast cancer Former smoker Your Care Team Attending Physician - Jacqui MOTT, Maria E Primary Care Physician - RAUDEL VILLEGAS, ELLIOT Referring Physician - Alfreda Miller MD This Is Your Medications List Misc Prescription (BACLOFEN 10 MG TABLET) Non-Formulary Medication (Neuveria Vitamin OTC) apixaban (Eliquis 5 mg oral tablet) atenolol (atenolol 50 mg Tab) cycloSPORINE ophthalmic (cycloSPORINE Opth 0.05% Emul) estradiol topical (Estrace 0.1 mg/g Cream) flecainide (flecainide 50 mg Tab) hydrochlorothiazide (hydrochlorothiazide 25 mg Tab) lisinopril (lisinopril 20 mg Tab) naproxen (Aleve) omeprazole (omeprazole 40 mg Jamie-) potassium chloride (Potassium Chloride (Jer-Qrfk-Geg 10) 10 mEq oral tablet, extended release) sumatriptan (SUMAtriptan 25 mg Tab) trazodone (traZODONE 50 mg Tab) trospium (trospium 60 mg oral capsule, extended release) Procedures Performed Appendectomy, Cardiac ablation system, Cataracts, Cholecystectomy, Hip replacement, Lumpectomy of left breast, Rotator cuff, ROSA - Total abdominal hysterectomy. Discharge Vitals Heart Rate (Peripheral) 52 Blood Pressure 129/71 Height 165 cm Height 65 in Weight 81.4 kg Weight 179.456 lb BMI 29.9 What to do next Scheduled Follow-Up Appointments Thursday 8:00 AM EDT With: Maria E Osman PA-C Where: [facility] [address] [place] [address]- Medications What How Much When Why Instructions Unchanged apixaban (Eliquis 5 mg oral tablet) Unchanged atenolol (atenolol 50 mg Tab) 1 Tablets Unchanged cycloSPORINE ophthalmic (cycloSPORINE Opth 0.05% Emul) 1 Drops Unchanged estradiol topical (Estrace 0.1 mg/ g Cream) See instructions Vaginal atrophy Recurrent UTI Apply pea sized amount to urethra/ vagina 3x a week for 1 month, then 2x a week afterwards Unchanged flecainide (flecainide 50 mg Tab) 1 Tablets Unchanged hydrochlorothiazide (hydrochlorothiazide 25 mg Tab) By Mouth Every day Unchanged lisinopril (lisinopril 20 mg Tab) Unchanged Misc Prescription (BACLOFEN 10 MG TABLET) 0 Unchanged naproxen (Aleve) Unchanged Non-Formulary Medication (Neuveria Vitamin OTC) Unchanged omeprazole (omeprazole 40 mg Cap-DR) 1 Capsules Unchanged potassium chloride (Potassium Chloride (Nnr-Qjpx-Zmm 10) 10 mEq oral tablet, extended release) [...] UTI History of breast cancer History of kidney stones History of malignant neoplasm of breast Hypertensive disorder Microscopic hematuria Mixed incontinence Rectocele Patient Survey You may receive a survey via text or e-mail asking about your office visit. Please share your experience with us by completing your survey. We appreciate your feedback and thank you for choosing us for your care. Patient Portal You may access all of your results and other medical record information on our secure patient portal. If you are not signed up for this yet, please contact [facility] at [phone] to get signed up today. Language Information Language assistance services are available as needed. Normal [facility] Urology Office/Clinic Noteon 10-26-2024 Urology Office/Clinic Note Urology Office/Clinic Note Chief Complaint F/U with PVR HPI Staff 79 yr old female here for 1 mth f/u w/ PVR. POST BOTOX done 09/19/24 Previous Dx: frequent uti, microscopic hematuria, mixed incontinence, anticoagulated, history of breast cancer, former smoker *Trospium 20 mg BID, Estrace cream 1x month PVR: 06/22/24 - 45mL 10/26/24 - 144mL BBSQ 19 Pt. having mixed incontinence, Pt. states the urge incontinence is better and Pt. states most of the time the urge is due to waiting to long. Pt. denies having pain with urination Pt. denies having gross hematuria Pt. denies having abd pain Pt. denies having flank pain History of Present Illness I have reviewed and verified the staff HPI to be accurate for this encounter. Review of Systems PHQ Score Initial Depression Screen Score: 0 SCORE no fever, chills, malaise, myalgia. no abdominal pain, nausea, vomiting. Physical Exam Vitals & Measurements HR: 52(Peripheral) BP: 129/71 HT: 165 cm HT: 65 in WT: 81.4 kg WT: 179.456 lb BMI: 29.9 General: Well developed, well nourished, in no acute distress. Assessment/Plan 79 y/o female patient here today for 1 month f/u s/p Botox 09/19/24 KML pt 1. Mixed incontinence (N39.46: Mixed incontinence) S/p cysto/Botox 100 units 09/19/24 UUI>JESUS BBSQ 19 (27) PVR today 144 ml (45 ml on 06/22/24) UA today w/ moderate blood only. She denies symptoms of infection or gross hematuria. Previously tried Myrbetriq but had adverse effects including bilateral kidney pain, cold-like sxs Gemtesa cost-prohibitive Trospium 60 mg ER denied by insurance. Ultimately switched back to Trospium 20 mg BID At last visit, patient had c/o worsening urge incontinence. Using 6-7 pads/week. Drinking mostly water, 1 cup of coffee daily. Denied constipation. She was taking Trospium 20 mg BID. She was subsequently scheduled for cysto/Botox given her symptoms. In the meantime, CTU was ordered for microhematuria evaluation which noted a 3 mm right ureteral stone. Follow up CT scan confirmed passage of this stone. Today, she is here for 1 month follow up s/p Botox 100 units on 09/19/24. She shares that her urgency and UUI have greatly improved since Botox. If she does experience UUI, states it is because she waits too long between voids. Now using 1 pad/day, but only changes for hygiene purposes, not leaking much. Reports she is still taking Trospium 20 mg BID. Reviewed PVR w/ patient today. Recommend stopping Trospium at this time. Will reevaluate her symptoms and PVR in 3 months. Recommend timed voids, voiding maneuvers. She is agreeable to plan. All questions answered. She denies bothersome JESUS symptoms today. -Discontinue Trospium 20 mg BID -Continue symptom monitoring -Timed voids, voiding maneuvers -Increase water intake, avoid bladder irritants -Kegel exercises -Follow up in 3 months w/ PVR, or sooner if needed -Pt to notify our office when Botox wears off and repeat Botox is desired Ordered: 30454 Measure Post Void residual urine and/or bladder capacity by US- non-imaging Urnls Dip Stick Auto w/o Microscopy POC [id number] 2. Frequent UTI (N39.0: Urinary tract infection, site not specified) CT AP w/ Con 03/10/20 - a stone in a vein adjacent to the Rt ureter rather than a ureteral stone, may represent a phlebolith rather than a renal stone. C&S 04/14/22 >100k E Coli C&S 06/09/22 pansensitive >100k E Coli C&S 10/27/22 pansensitive >100k E Coli No documented UTIs for 2023 UCX 06/22/24 - no growth UCX 09/12/24 - >100K E. Coli, tx w/ Keflex x 7 days UA today with moderate blood only Typical UTI symptoms include urine odor, increased urgency and dysuria Shares she continues to use topical estrogen cream once weekly. Reviewed UA today w/ patient. She denies symptoms of infection today. -Cont Estrace cream, can increase application to 2x/weekly -Increase water intake, avoid bladder irritants 3. History of kidney stones (Z87.442: Personal history of urinary calculi) CTU [facility] 07/18/24 - 3 mm right proximal ureteral stone w/ mild hydro CTAP wo con 08/15/24 - no visible stones or hydro She did not experience any flank pain w/ ureteral stone. Shares symptoms of increased urgency and UUI at this time. She is unaware when she passed stone. CT scan confirmed stone passage. She denies any flank pain or gross hematuria today. -Cont symptom monitoring -High fluid intake, add lemon/[place] -Moderate animal protein, increase fruits and vegetables 4. 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 She has had a hematuria workup including a scope in the past at [facility]. Denies gross hematuria. CTU 07/18/24 - neg for filling defects, 3 mm right ureteral stone noted. Follow up CT scan confirmed passage. S/p cysto 09/19/24 - negative for b.t., lesions, stones or foreign bodies. Cystitis cystica. Moderate vaginal atrophy. UA today w/ moderate bloo (more content not included)... Normal [facility] Comment on above: Result Comment: Elec tronically Signed By: Jacqui MOTT, Maria E\.cassandra\Date and Time Signed: 10/26/24 09:05 EDT Inpatient Patient Summaryon 09-19-2024 Inpatient Patient Summary Inpatient Patient Summary [place] [id number] Clinical Summary Person Information Name: BETTIE BURNS Age: 79 Years : 1945 Sex: Female PCP: ELLIOT STARKS MD Marital Status: Race: White Ethnicity: Non- or Language: Samoan Visit Id: Visit Reason: MIXED INCONTINENCE Speciality: Acuity: Enc Type: Outpatient Med Service: Surgery Arrival: 09/19/2024 07:39:26 Discharge: Dispo Type: Address: [address] [place] [id number] Provider Notes: Diagnosis: Mixed incontinence; Recurrent UTI; [...] Cap-DR) 1 Capsules. potassium chloride (Potassium Chloride (Big-Iqvh-Mfe 10) 10 mEq oral tablet, extended release) 1 Tablets. sumatriptan (SUMAtriptan 25 mg Tab) 1 Tablets. trazodone (traZODONE 50 mg Tab) 1 Tablets. trospium (trospium 60 mg oral capsule, extended release) 1 Capsules By Mouth at bedtime. Refills: 3. Care Team Members: Attending Physician: Alfreda Miller MD Consulting Physician: Referring Physician: Alfreda Miller MD Follow up: With: Address: When: Maria E sOman Comments: Office to schedule follow up in 1 month with PVR With: Address: When: Alfreda Miller Patient Education Information: EU - Cystoscopy with Botox Injection Discharge Instructions (CUSTOM) [facility] Main OR Intraoperative Recor don 09-19-2024 Main OR Intraoperative Record Main OR Intraoperative Record IntraOp Document Type FTURO Summary Primary Physician: Alfreda Miller MD Finalized Date/Time: 09/19/24 08:27:50 Pt. Name: ALMA BETTIE Browning/Sex: 1945 Female Med Rec #: [id number] Physician: Alfreda Miller MD Financial #: [id number] Pt. Type: O Room/Bed: / Admit/Disch: 09/19/24 07:39:26 - Institution: Case Times FTURO Entry 1 Patient Times In Room 09/19/24 08:12:00 Out Room 09/19/24 08:24:00 Procedure Times Start 09/19/24 08:17:00 Stop 09/19/24 08:20:00 Anesthesia Times Last Modified By: Roxy King 09/19/24 08:27:24 General Comments: BOTOX 100 UNITS: EXP: AND LOT: [id number].RICARDO MOREIRA . Case Attendance FTURO Entry 1 Entry 2 Entry 3 Case Attendee Alfreda Miller MD, Kelsie E Miller, Laura C Role Performed Surgeon - Primary Digital Design Engineer - Primary Scrub - Primary Time In [...] UNITS BOTOX Primary Procedure Yes Primary Surgeon Alfreda Miller MD Start 09/19/24 08:17:00 Stop 09/19/24 08:20:00 Anesthesia [...] MD, Verified (If Participants Roxy King, Applicable) Sheridan Blas Time Out Complete 09/19/24 08:16:00 Allergies Reviewed? [...] Complete 09/19/24 08:20:00 Last Modified By: Roxy Kign 09/19/24 08:27:38 Case Comments Finalized By: Roxy King Document Signatures Signed By: Roxy King 09/19/24 08:27 Normal [facility] Main OR Preoperative Recordo n 09-19-2024 Main OR Preoperative Record Main OR Preoperative Record Holding Area Document Type FTURO Summary Primary Physician: Alfreda Miller MD Finalized Date/Time: 09/19/24 08:17:11 Pt. Name: ALMA BETTIE PalominoO.B./Sex: 1945 Female Med Rec #: [id number] Physician: Alfreda Miller MD Financial #: [id number] Pt. Type: O Room/Bed: / Admit/Disch: 09/19/24 [...] Complaints of Pain: No Skin Integrity Intact, [place], Warm, & Dry Vitals - EU Blood [...] Unfinalizing Freetext Reason for Unfinalizing 09/19/24 08:16 [id number] Adding Additional Data Normal [facility] Operative Reporton Operative Report Operative [...] regarding vaginal atrophy and recurrent UTIs. Normal [facility] Comment on above: Result Comment: Elec tronically Signed By: Alfreda Miller MD\.br\Date and Time Signed: 09/19/24 08:25 EDT Outpatient Surgery Discharge Instructionon 09-19-2024 Outpatient Surgery Discharge Instruction Outpatient Surgery Discharge Instruction [place] [id number] Patient Discharge Instructions PERSON INFORMATION Name: BETTIE [...] CALL 911 Follow up: With: Address: When: Maria E [...] have a fever over 100 degrees. ??? ALMA Cruz TONYA G, have received the attached patient education materials/instructions [...] to serve you. Thank you for choosing [facility] Normal [facility] C Urineon 09-14-2024 Bacteria identified [...] Locations R1: This test was performed at: [facility], [address] [place] [address], [address] [place] [address], [facility] Comment on above: Performed By: #### 2 [id number] #### [facility] [address] [place] [address] Urineon 06-24-2024 Bacteria identified Cx Nom (U) [...] Locations R1: This test was performed at: [facility], [address] [place] [address], [address] , [place], Normal [facility] Comment on above: Performed By: #### 2 130087 #### [facility] [address] [place] [address] Ambulatory Visit Summaryon 0 06-22-2024 Ambulatory Visit [...] 40 mg Cap-DR) potassium chloride (Potassium Chloride (Cjy-Utui-Teu 10) 10 mEq oral tablet, extended release) [...] Follow-Up Appointments Thursday 10:30 AM EDT Where: [facility] Thursday 8:15 AM EDT Where: [facility] Medications What How [...] 1 Capsules Unchanged potassium chloride (Potassium Chloride (Zyr-Xqsc-Oyr 10) 10 mEq oral tablet, extended release) [...] for choosing us for your care. Normal [facility] URINALYSISOrdered By: Tien Lyon on 06-22-2024 Bacteria Auto Ql (U) 1+ /HPF Invalid Interpretation Code Trace/HPF [facility] UA Auto SS Bilirubin Ql (U) Negative Normal Negativemg/ d L [facility] UA Auto SS Clarity (U) Clear (06/22/24 1:48 PM) Normal Clear [facility] UA Auto SS Color (U) Light-Yellow 1 (06/22/24 1:48 PM) Normal Yellow [facility] UA Auto SS Comment on above: Interpretive Data: M icroscopic readings are only performed on those samples that meet specific criteria set forth by [facility]. Epithelial cells.squamous Auto (Urine sed) [#/Area] 0-2 graded/HPF Invalid Interpretation Code [facility] UA Auto SS Glucose Ql (U) Negative Normal Negativemg/d L [facility] UA Auto SS Hemoglobin Auto test strip [...] Ql (U) 1+ /HPF Abnormal Trace [facility] Comment on above: Performed By: #### 4 [id number] #### [facility] [address] [place] [address] Bilirubin Ql (U) Negative Normal Negative [facility] Comment on above: Performed By: #### 4 [id number] #### [facility] [address] [place] [address] Clarity (U) Clear Normal Clear [facility] Comment on above: Performed By: #### 4 [id number] #### [facility] [address] [place] [address] Color (U) Light-Yellow Normal Yellow [facility] Comment on above: Result Comment: Micr oscopic readings are only performed on those samples that meet specific criteria set forth by [facility]. Performed By: #### 4 [id number] #### [facility] [address] [place] [address] Epithelial cells.squamous Auto (Urine sed) [#/Area] 0-2 Invalid Interpretation Code [facility] Comment on above: Performed By: #### 4 [id number] #### [facility] [address] [place] [address] Glucose Ql (U) Negative Normal Negative [facility] Comment on above: Performed By: #### 4 [id number] #### [facility] [address] [place] [address] Hemoglobin Auto test strip (U) [Mass/Vol] 2+ Abnormal Negative [facility] Comment on above: Performed By: #### 4 [id number] #### [facility] [address] [place] [address] Ketones Auto test strip Ql (U) Negative Normal Negative [facility] Comment on above: Performed By: #### 4 [id number] #### [facility] [address] [place] [address] Leukocyte esterase Auto test strip Ql (U) 250 Felipe/uL Abnormal Negative [facility] Comment on above: Performed By: #### 4 [id number] #### [facility] [address] [place] [address] Mucus Auto Ql (U) Negative Normal Negative [facility] Comment on above: Performed By: #### 4 [id number] #### [facility] [address] [place] [address] Nitrite Auto test strip Ql (U) Negative Normal Negative [facility] Comment on above: Performed By: #### 4 [id number] #### [facility] [address] [place] [address] pH (U) 6.0 [pH] Invalid Interpretation Code 5.0-9.0 [facility] Comment on above: Performed By: #### 4 [id number] #### [facility] [address] [place], [place] [address] Protein Ql (U) Negative Normal Negative [facility] Comment on above: Performed By: #### 4 [id number] #### [facility] [address] [place] [address] RBC Ql (U) 4-20 Abnormal 0-3 [facility] Comment on above: Performed By: #### 4 [id number] #### [facility] [address] [place] [address] Specific gravity (U) [Rel density] 1.013 Invalid Interpretation Code 1.005-1.030 [facility] Comment on above: Performed By: #### 4 [id number] #### [facility] [address] [place], [place] [address] Urobilinogen (U) [Mass/Vol] Negative Normal Negative [facility] Comment on above: Performed By: #### 4 [id number] #### [facility] [address] [place], [place] [address] WBC Auto (Urine sed) [#/Area] 31-75 Abnormal 0-5 [facility] Comment on above: Performed By: #### 4 [id number] #### [facility] [address] [place], [place] [address] Type of Urine collection method Random Urine Normal [facility] Comment on above: Performed By: #### 4 [id number] #### [facility] [address] [place], [place] [address] Urology Office/Clinic Noteon 06-22-2024 Urology Office/Clinic Note [...] well nourished, in no acute distress. Assessment/Plan [facility] patient, last seen in-office 05/27/23 78 [...] pending completion of cystoscopy w/ KML Ordered: 93532 Measure Post Void residual urine and/or bladder [...] Urnls Dip Stick Auto w/o Microscopy POC 44748 2. Frequent UTI (N39.0: Urinary tract infection, [...] UTIs for (more content not included)... 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 MAMM SCREENING BILATERAL W CAD MAMM [...] 2:57 PM 2 a FU ACR Normal [facility] BETTIE BURNS ([id number]) 1945 F Date Time Provider Department 09/17/23 MATT ADAMS During your visit today, we recorded the following information about you: Matt Adams RN 09/17/2023 10:20 AM Signed Pt called to request yearly Mammogram order I have pended order as previously completed Pt requests to fax to [facility] [phone] BRM/HM: please review and sign if agreeable [...] mammogram for malignant neoplasm of breast [Z12.31] Order(s):[facility] SCREENING W YAW [[id number]] Order #: [id number] FUTURE Prescriptions as of 09/17/2023 - lisinopril [...] Status:Closed by ANDREW CHOI on 09/17/23 Normal [facility] CBC AND AUTO DIFFon 07-15-19 ABSOLUTE BASOPHIL 0.1 X10E9/L Normal 0.0-0.2 [facility] Comment on above: Performed By: #### C BCA, 08211-1, PINR, 17266-3, CMP, 65249-2, 21012-5, THYR, 12870-4 #### [facility] ([id number]) [address] [place] [address] 577[address] ABSOLUTE NEUTROPHIL 2.8 X10E9/L Normal 1.5-6.6 [facility] Comment on above: Performed By: #### C BCA, 12164-4, PINR, 56819-6, CMP, 71191-7, 16641-7, THYR, 16595-7 #### [facility] ([id number]) [address] [place] [address] 17674 Basophils/100 WBC (Bld) 1.3 % Normal [facility] Comment on above: Performed By: #### C BCA, 15756-3, PINR, 75429-9, CMP, 77154-6, 51523-1, THYR, 81730-5 #### [facility] ([id number]) [address] [place] [address] 38403 Eosinophils (Bld) [#/Vol] 0.7 10*3/uL High 0.0-0.4 [facility] Comment on above: Performed By: #### C BCA, 59795-1, PINR, 50202-5, CMP, 57294-1, 81782-3, THYR, 88898-6 #### [facility] ([id number]) [address] [place] [address] 63490 Eosinophils/100 WBC (Bld) 11.9 % Normal [facility] Comment on above: Performed By: #### C BCA, 90831-2, PINR, 18654-8, CMP, 77858-8, 93901-2, THYR, 73518-6 #### [facility] ([id number]) [address] [place] [address] 55908 Erythrocyte distribution width (RBC) [Ratio] 13.5 % Normal 11.5-15.0 [facility] Comment on above: Performed By: #### C BCA, 88562-1, PINR, 81162-6, CMP, 25806-9, 02881-2, THYR, 55270-5 #### [facility] ([id number]) [address] [place] [address] 94107 Hematocrit (Bld) [Volume fraction] 38.5 % Normal 35-47 [facility] Comment on above: Performed By: #### C BCA, 79073-2, PINR, 57051-8, CMP, 88694-2, 62799-2, THYR, 22133-9 #### [facility] ([id number]) [address] [place] [address] 65707 Hemoglobin (Bld) [Mass/Vol] 13.3 g/dL Normal 11.7-15.5 [facility] Comment on above: Performed By: #### C BCA, 36816-4, PINR, 65127-0, CMP, 40447-7, 96701-8, THYR, 65697-7 #### [facility] ([id number]) [address] [place] [address] 36073 Lymphocytes (Bld) [#/Vol] 1.8 10*3/uL Normal 1.0-3.5 [facility] Comment on above: Performed By: #### C BCA, 06725-8, PINR, 10686-6, CMP, 93600-2, 50173-3, THYR, 72661-1 #### [facility] ([id number]) [address] [place] [address] 47805 Lymphocytes/100 WBC (Bld) 29.4 % Normal [facility] Comment on above: Performed By: #### C BCA, 05493-0, PINR, 06764-8, CMP, 14385-0, 45919-3, THYR, 81547-7 #### [facility] ([id number]) [address] [place] [address] 05099 MCH (RBC) [Entitic mass] 32.8 pg Normal 27-34 [facility] Comment on above: Performed By: #### C BCA, 66731-5, PINR, 50766-7, CMP, 83499-2, 96227-2, THYR, 15903-1 #### [facility] ([id number]) [address] [place] [address] 21379 MCHC (RBC) [Mass/Vol] 34.4 g/dL Normal 32-36 [facility] Comment on above: Performed By: #### C BCA, 85516-5, PINR, 99391-2, CMP, 04339-0, 85584-1, THYR, 93121-2 #### [facility] ([id number]) [address] [place] [address] 20932 MCV (RBC) [Entitic vol] 95 fL Normal 80-100 [facility] Comment on above: Performed By: #### C BCA, 19065-4, PINR, 53825-5, CMP, 19490-5, 14057-5, THYR, 82771-5 #### [facility] ([id number]) [address] [place] [address] 24077 Monocytes (Bld) [#/Vol] 0.8 10*3/uL Normal 0-0.9 [facility] Comment on above: Performed By: #### C BCA, 97611-2, PINR, 72036-2, CMP, 43696-7, 75281-3, THYR, 53483-1 #### [facility] ([id number]) [address] [place] [address] 09694 Monocytes/100 WBC (Bld) 13.2 % Normal [facility] Comment on above: Performed By: #### C BCA, 19671-0, PINR, 38125-5, CMP, 33732-9, 97790-4, THYR, 12948-3 #### [facility] ([id number]) [address] [place] [address] 50291 Neutrophils/100 WBC (Bld) 44.2 % Normal [facility] Comment on above: Performed By: #### C BCA, 91643-3, PINR, 32684-3, CMP, 13156-0, 73528-7, THYR, 24372-8 #### [facility] ([id number]) [address] [place] [address] 92524 Platelet mean volume (Bld) [Entitic vol] 6.9 fL Low 7-12 [facility] Comment on above: Performed By: #### C BCA, 27158-8, PINR, 82398-4, CMP, 21467-9, 68923-3, THYR, 61456-6 #### [facility] ([id number]) [address] [place] [address] 62148 Platelets (Bld) [#/Vol] 340 10*3/uL Normal 150-450 [facility] Comment on above: Performed By: #### C BCA, 80433-4, PINR, 80366-0, CMP, 26853-3, 08268-0, THYR, 38294-6 #### [facility] ([id number]) [address] [place] [address] 70239 RBC COUNT 4.05 X10E12/L Normal 3.80-5.20 [facility] Comment on above: Performed By: #### C BCA, 06128-8, PINR, 67784-5, CMP, 40154-0, 55126-2, THYR, 17837-2 #### [facility] ([id number]) [address] [place] [address] 86906 WBC (Bld) [#/Vol] 6.2 10*3/uL Normal 4.0-11.0 [facility] Comment on above: Performed By: #### C BCA, 69418-3, PINR, 13693-6, CMP, 09667-7, 94208-6, THYR, 40059-9 #### [facility] ([id number]) [address] [place] [address] 32197 COMPREHENSIVE METABOLIC PANE [facility] 07-15-2023 Albumin [Mass/Vol] 3.5 g/dL Normal 3.2-5.3 [facility] Comment on above: Performed By: #### C BCA, 23930-2, PINR, 48416-2, CMP, 91204-6, 67329-6, THYR, 05919-9 #### [facility] ([id number]) [address] [place] [address] [place] [address] ALP [Catalytic activity/Vol] 52 U/L Normal 39-130 [facility] Comment on above: Performed By: #### C BCA, 18345-5, PINR, 89482-7, CMP, 41092-1, 57591-7, THYR, 64120-8 #### [facility] ([id number]) [address] [place] [address] [place] [address] ALT [Catalytic activity/Vol] 13 U/L Normal 0-31 [facility] Comment on above: Performed By: #### C BCA, 24219-3, PINR, 53493-4, CMP, 32735-3, 18858-5, THYR, 90203-6 #### [facility] ([id number]) [address] [place] [address] Anion gap [Moles/Vol] 10 mmol/L Normal 5-15 [facility] Comment on above: Performed By: #### C BCA, 64432-9, PINR, 43879-6, CMP, 29463-5, 28848-2, THYR, 52414-4 #### [facility] ([id number]) [address] [place] [address] 33059 AST [Catalytic activity/Vol] 24 U/L Normal 0-41 [facility] Comment on above: Performed By: #### C BCA, 64979-8, PINR, 37334-8, CMP, 80085-6, 46856-6, THYR, 02608-6 #### [facility] ([id number]) [address] [place] [address] 56298 Bilirubin [Mass/Vol] 0.7 mg/dL Normal 0.3-1.2 [facility] Comment on above: Performed By: #### C BCA, 01826-5, PINR, 27633-5, CMP, 98182-3, 33297-9, THYR, 85400-1 #### [facility] ([id number]) [address] [place] [address] 27816 Calcium [Mass/Vol] 9.4 mg/dL Normal 8.5-10.5 [facility] Comment on above: Performed By: #### C BCA, 14849-2, PINR, 31033-7, CMP, 64796-8, 38964-9, THYR, 83529-2 #### [facility] ([id number]) [address] [place] [address] 34202 Chloride [Moles/Vol] 102 mmol/L Normal 98-109 [facility] Comment on above: Performed By: #### C BCA, 17426-7, PINR, 63743-3, CMP, 41448-0, 69196-1, THYR, 23190-7 #### [facility] ([id number]) [address] [place] [address] CO2 [Moles/Vol] 27 mmol/L Normal 22-32 [facility] Comment on above: Performed By: #### C BCA, 29195-7, PINR, 39656-4, CMP, 78869-3, 32262-5, THYR, 25914-7 #### [facility] ([id number]) [address] [place] [address] [place] [address] Creatinine [Mass/Vol] 1.21 mg/dL High 0.40-1.00 [facility] Comment on above: Result Comment: METH OD TRACEABLE TO IDMS STANDARD Performed By: #### C BCA, 68835-8, PINR, 03450-9, CMP, 42598-7, 44254-0, THYR, 60061-9 #### [facility] ([id number]) [address] [place] [address] 69984 GFR/1.73 sq M.predicted among non-blacks MDRD (S/P/Bld) [Vol rate/Area] 46 mL/min/{1.73_m2} Low >59 [facility] Comment on above: Result Comment: Reported eGFR is based on the CKD-EPI 2020 equation that does not use a race coefficient. Performed By: #### C BCA, 40730-7, PINR, 30670-4, CMP, 41856-6, 82429-4, THYR, 32293-6 #### [facility] ([id number]) [address] [place] [address] 80011 Glucose [Mass/Vol] 120 mg/dL High 65-99 [facility] Comment on above: Performed By: #### C BCA, 01777-6, PINR, 29765-9, CMP, 47339-8, 63200-9, THYR, 11337-6 #### [facility] ([id number]) [address] [place] [address] 55919 Potassium [Moles/Vol] 4.0 mmol/L Normal 3.5-5.0 [facility] Comment on above: Performed By: #### C BCA, 93115-9, PINR, 79589-5, CMP, 22385-5, 45278-6, THYR, 92663-9 #### [facility] ([id number]) [address] [place] [address] 90253 Protein [Mass/Vol] 6.8 g/dL Normal 6.0-8.0 [facility] Comment on above: Performed By: #### C BCA, 54872-7, PINR, 86019-8, CMP, 81463-1, 97245-6, THYR, 97393-4 #### [facility] ([id number]) [address] [place] [address] 26296 Sodium [Moles/Vol] 139 mmol/L Normal 134-146 [facility] Comment on above: Performed By: #### C BCA, 40558-0, PINR, 91365-1, CMP, 16920-9, 96391-2, THYR, 30687-8 #### [facility] ([id number]) [address] [place] [address] 73371 Urea nitrogen [Mass/Vol] 31 mg/dL High 5-27 [facility] Comment on above: Performed By: #### C BCA, 19888-6, PINR, 79358-4, CMP, 01411-4, 01127-7, THYR, 77940-9 #### [facility] ([id number]) [address] [place] [address] 51386 Fibrin D-dimer DDU (PPP) [Ma ss/Vol]on 07-15-2023 D DIMER 220 ng/mL DDU Normal <255 [facility] Comment on above: Result Comment: Results <255 ng/mL DDU: The presence of a VTE can safely be excluded with a negative D-Dimer result and Wells score. A negative result doesn't exclude the possibility of DIC. The test be repeated along with other diagnostic tests if the patient's symptoms persist or worsen. [email or web address] Performed By: #### C BCA, 03779-4, PINR, 65699-3, CMP, 40107-4, 17031-0, THYR, 68105-0 #### [facility] ([id number]) [address] [place] [address] 59962 MAGNESIUMon 07-15-2023 Magnesium [Mass/Vol] 1.8 mg/dL Normal 1.8-2.6 [facility] Comment on above: Performed By: #### C KONSTANTIN, 73599-8, PINR, 35579-2, CMP, 44702-2, 45550-2, THYR, 26992-4 #### [facility] ([id number]) [address] [place] [address] 08519 Natriuretic peptide B [Mass/ Vol]on 07-15-2023 Natriuretic peptide B (Bld) [Mass/Vol] 119 pg/mL High <100.0 [facility] Comment on above: Performed By: #### C BCA, 95389-1, PINR, 90909-4, CMP, 76444-9, 48609-2, THYR, 36108-7 #### [facility] ([id number]) [address] [place] [address] 19167 PROTIME AND INRon 07-15-2023 INR Coag (PPP) [Relative time] 1.8 {INR} High 0.8-1.1 [facility] Comment on above: Performed By: #### C BCA, 72458-1, PINR, 48923-4, CMP, 31279-0, 73900-9, THYR, 12805-1 #### [facility] ([id number]) [address] [place] [address] 35144 PT Coag (PPP) [Time] 20.8 s High 9.8-13.2 [facility] Comment on above: Result Comment: NEW REFERENCE RANGE Performed By: #### C BCA, 88680-1, PINR, 56048-9, CMP, 19928-3, 23612-0, THYR, 90337-3 #### [facility] ([id number]) [address] [place] [address] 60173 THYROID PROFILEon 07-15-2023 Free T4 [Mass/Vol] 1.25 ng/dL Normal 0.61-1.60 [facility] Comment on above: Performed By: #### C BCA, 27845-1, PINR, 28074-8, CMP, 80986-3, 74015-8, THYR, 08117-4 #### [facility] ([id number]) [address] [place] [address] 43998 TSH 1.69 uIU/mL Normal 0.49-4.67 [facility] Comment on above: Performed By: #### C BCA, 73529-4, PINR, 13704-0, CMP, 24076-6, 03040-0, THYR, 56966-9 #### [facility] ([id number]) [address] [place] [address] 57555 TROPONIN Ion 07-15-2023 Troponin I.cardiac [Mass/Vol] 0.01 ng/mL Normal 0.00-0.04 [facility] Comment on above: Performed By: #### C BCA, 20803-3, PINR, 39742-2, CMP, 02297-0, 85495-0, THYR, 06401-1 #### [facility] ([id number]) [address] [place] [address] 42882 XR CHEST 2 VWSon 07-15-2023 XR CHEST 2 VWS XR CHEST 2 VWS History: chest pressure Exam/Technique: PA and lateral chest Comparison: None. Findings: There is no evidence of active pulmonary or pleural disease. Cardiac and mediastinal contours are within normal limits. Left-sided surgical clips. Granulomatous changes. IMPRESSION: No active pulmonary disease. Finalized by Adrian Ervin MD on 07/15/2023 1:14 PM Normal [facility] aPTT Coag (PPP) [Time]on aPTT Coag (Bld) [Time] 36 s Normal 26-37 [facility] Comment on above: Result Comment: NEW REFERENCE RANGE Performed By: #### C BCA, 73549-5, PINR, 45122-4, CMP, 74806-4, 51146-0, THYR, 87027-2 #### [facility] ([id number]) [address] [place] [address], [place] [address] BASIC METABOLIC PANELon 03-0 Anion gap [Moles/Vol] 1 mmol/L MMOL/L [facility] Calcium [Mass/Vol] 8.7 mg/dL [facility] Chloride [Moles/Vol] 103 mmol/L [facility] Comment on above: Please note: Triglyc eride levels of 600mg/dL or higher may positively bias chloride results by approximately 2.1 mmol CO2 [Moles/Vol] 30 mmol/L [facility] Creatinine [Mass/Vol] 1.10 mg/dL [facility] GFR COMMENT Average GFR for 70+ years old = 75. [facility] Comment on above: Chronic Kidney disea se, GFR = <60. Kidney failure, GFR = <15. The GFR estimate is not adjusted for extreme body surface area or acute process, nor has it been validated for women or ethnic groups other than and . GFR/1.73 sq M.predicted among blacks MDRD (S/P/Bld) [Vol rate/Area] 62 mL/min/{1.73_m2} ml/min/1.73s q.m [facility] GFR/1.73 sq M.predicted among non-blacks MDRD (S/P/Bld) [Vol rate/Area] 51 mL/min/{1.73_m2} ml/min/1.73s q.m [facility] Glucose post fast [Mass/Vol] 141 mg/dL High [facility] Comment on above: NORMAL <100 mg/dL PREDIABETES 101-126 mg/dL DIABETES 126 mg/dL or higher Interpretation and review of laboratory results Abnormal [facility] Potassium [Moles/Vol] 3.8 mmol/L [facility] Sodium [Moles/Vol] 134 mmol/L Low [facility] Urea nitrogen [Mass/Vol] 30 mg/dL High [facility] CBC, EDIF, PLATELETon 2023 ABSOLUTE BASOPHIL COUNT 0.0 10*3/uL 0.0 - 0.2 10*3/uL [facility] Basophils/100 WBC (Bld) 0.3 % 0.0 - 2.0 % [facility] Differential cell count method Nom (Bld) AUTO DIFF % [facility] Eosinophils (Bld) [#/Vol] 0.0 10*3/uL 0.0 - 0.7 10*3/uL [facility] Eosinophils/100 WBC (Bld) 0.0 % 0.0 - 11.0 % [facility] Erythrocyte distribution width (RBC) [Ratio] 13.2 % 11.5 - 14.5 % [facility] Hematocrit (Bld) [Volume fraction] 33.6 % Low 36.0 - 48.0 % [facility] Hemoglobin (Bld) [Mass/Vol] 12.0 g/dL [facility] Interpretation and review of laboratory results Abnormal [facility] Lymphocytes (Bld) [#/Vol] 1.1 10*3/uL Low 1.2 - 3.4 10*3/uL [facility] Lymphocytes/100 WBC (Bld) 16.4 % Low 20.0 - 55.0 % [facility] MCH (RBC) [Entitic mass] 33.6 pg 26.0 - 35.0 PG [facility] MCHC (RBC) [Mass/Vol] 35.6 g/dL [facility] MCV (RBC) [Entitic vol] 94.2 fL [facility] Monocytes (Bld) [#/Vol] 0.3 10*3/uL 0.0 - 0.7 10*3/uL [facility] Monocytes/100 WBC (Bld) 4.3 % 0.0 - 10.0 % [facility] Neutrophils (Bld) [#/Vol] 5.2 10*3/uL 1.4 - 6.5 10*3/uL [facility] Neutrophils/100 WBC (Bld) 79.0 % High 37.0 - 75.0 % [facility] Platelet mean volume (Bld) [Entitic vol] 7.0 fL Low [facility] Platelets (Bld) [#/Vol] 226 10*3/uL 130 - 400 10*3/uL [facility] RBC (Bld) [#/Vol] 3.57 10*6/uL Low 4.0 - 5.4 10*6/uL [facility] WBC (Bld) [#/Vol] 6.6 10*3/uL 3.6 - 11.0 10*3/uL [facility] BODY FLUID CELL COUNTon Appearance (Body fld) HAZY [facility] Color (Body fld) LIGHT YELLOW [facility] RBC Auto (Body fld) [#/Vol] 3376 /CMM [facility] Specimen source Nom (Body fld) SYNOVIAL FLUID [facility] WBC (Body fld) [#/Vol] 57 10*3/uL /CMM [facility] DIFFERENTIAL, FLUIDon 2023 BASOPHILS, FLUID 2 % [facility] Comment on above: NO REFERENCE RANGE E STABLISHED Eosinophils/100 WBC (Body fld) 4 % [facility] Comment on above: NO REFERENCE RANGE E STABLISHED Lymphocytes/100 WBC (Body fld) 22 % [facility] Comment on above: NO REFERENCE RANGE E STABLISHED MESOTHELIAL CELLS, FLUID 8 % [facility] Comment on above: NO REFERENCE RANGE E STABLISHED Monocytes+Macrophage s/100 WBC Manual cnt (Body fld) 48 % [facility] Comment on above: NO REFERENCE RANGE E STABLISHED Neutrophils/100 WBC (Body fld) 16 % [facility] Comment on above: NO REFERENCE RANGE E STABLISHED [facility] REPEAT ABO/RH (D) TYPINGon 0 07-07-2023 ABO and Rh group Nom (Bld ) Positive [facility] SCREEN: MRSA ONLY, NARES (IS OLATION SCREEN)on 07-07-2023 MRSA isol Org specific cx Ql (Nose) Negative NEGATIVE [employer] STAPHYOCOCCUS AUREUS BY PCR Negative NEGATIVE [employer] Comment on above: TESTING PERFORMED BY PCR [employer] XR Pelvis 2 Viewson 07-07-19 FINDINGS/IMPRESSION: 1. [...] or other acute bony abnormality is seen. [employer] Radiology Study observation (narrative) [employer] XR Pelvis 2 ViewsOrdered By: Parveen Mason on 07-07-2023 [employer] Work Phone: POCT EKGOrdered By: Samantha Gurrola on 06-02-2023 [facility] COBALT AND CHROMIUM,WBon Chromium (Bld) [Mass/Vol] 1.1 [employer] Comment on above: Reference range: <3. 0 Unit: ng/mL PERFORMED BY [employer] [place] (Bld) [Mass/Vol] <1.0 [employer] Comment on above: Reference range: <3. 0 Unit: ng/mL (NOTE) Chromium and cobalt analysis performed by inductively coupled plasma/mass spectrometry (ICP/MS). Reference range is for patients with inttd-wz-ptmlc (MoM) orthopedic implants. The [place] Association of Hip and Knee Surgeons, the [place] Academy of Orthopaedic Surgeons, and The Hip Society, have published a consensus statement, Risk Stratification Algorithm for Management of Patients with Aowfb-au-Dsgix Hip Arthroplasty. The algorithm is intended as an aid to orthopedic surgeons in the assessment and management of patients with Uzbnp-av-Exrmb bearings. The systematic risk stratification includes recommendations [...] developed and its performance characteristics determined by [employer]. It has not been cleared or approved by the Food and Drug Administration. [employer] C REACTIVE PROTEINon 024 CRP [Mass/Vol] 48.4 mg/L High 0 - 10 MG/L [facility] System Interpretation and review of laboratory results Abnormal [employer] [facility] SEDIMENTATION RATE, AUTOMATE Don 05-14-2023 ESR (Bld) [Velocity] 31 mm/h High [employer] [facility] Interpretation and review of laboratory results Abnormal [facility] Urinalysis - DIPSTICKon 10-03 Appearance (U) cloudy [employer] Other Bilirubin Ql (U) [employer] ast [employer]. Other Color (U) yellow [employer] Other Glucose Ql (U) Negative [employer] Other Hemoglobin Ql (U) [email or web address]ast [employer]. Other Ketones Ql (U) Negative [employer] Other Leukocyte esterase Test strip Ql (U) moderate [employer] Other Nitrite Ql (U) Positive [employer] Other pH (U) 5 [pH] [employer] Other Protein Ql (U) Negative [employer] Other Specific gravity (U) [Rel density] 1.010 [employer] Other Urobilinogen (U) [Mass/Vol] off chart [employer] Other Urinalysis - DIPSTICK [employer] Other Urine Cultureon 10-27-2022 Bacteria identified Cx Nom (U) ORGANISM: Escherichia coli (O:ESCCOL) Peck Count >100,000 Aerobic AUBREY Charge (NMIC56) --- [...] RESISTANT TO ALL B-LACTAM DRUGS. PERFORMED BY: [place] [id number] [place] [address] PATHOLOGIST SOIL BIOLOGY TEACHER JOSE GUADALUPE FERGUSON M.D. [facility] Comment on above: Performed By: #### C UU #### [facility] [address] Urinalysis - DIPSTICKon 06-05 Appearance (U) cloudy [employer] Other Bilirubin Ql (U) Negative [employer] Other Color (U) pale yellow [employer] Other Glucose Ql (U) Negative [employer] Other Hemoglobin Ql (U) non hem-trace [facility] [employer] Other Ketones Ql (U) trace [employer] Other Leukocyte esterase Test strip Ql (U) moderate [employer] Other Nitrite Ql (U) Negative [employer] Other pH (U) 5 [pH] [employer] Other Protein Ql (U) trace [employer] Other Specific gravity (U) [Rel density] 1.005 [employer] Other Urobilinogen (U) [Mass/Vol] normal [employer] Other Urinalysis - DIPSTICK [employer] Other CULTURE URINEon 06-11-2022 CULTURE URINE Isolate [...] oxazole <=20 S F Normal [facility] Comment on above: Performed By: #### U RCX #### [facility] [address] [place] [address] Dr. Florencio Narayanan CARDIAC AMBER ADMITon 023 CK [Catalytic activity/Vol] 44 U/L Normal 26-[address] [facility] Comment on above: Performed By: #### C LILIAN LOZANO CMADM #### [facility] [address] [place] [address] Dr. Florencio Narayanan CK.MB [Mass/Vol] ng/mL Normal <=3.60 [facility] Comment on above: Performed By: #### C LILIAN LOZANO CMADM #### [facility] [address] [place] [address] Dr. Florencio Narayanan HSTROP 14.6 pg/mL Normal 4.0-51.3 [facility] Comment on above: Result Comment: CUT- OFF POINTS HAVE BEEN ESTABLISHED BASED ON THE FOURTH UNIVERSAL DEFINITIONS OF MYOCARDIAL INFARCTION. THE UPPER REFERENCE LIMIT (URL) OF TROPONIN, DEFINED THE 99TH PERCENTILE OF cTnI DISTRIBUTION IN A REFERENCE POPULATION, HAS BEEN CONFIRMED THE DECISION THRESHOLD FOR [place] DIAGNOSIS. Performed By: #### C LILIAN LOZANO, CMADM #### [facility] [address] [place] [address] Dr. Florencio Narayanan UMER 109 ng/mL Critically high 9-82 [facility] Comment on above: Performed By: #### C LILIAN LOZANO CMADM #### [facility] [address] [place] [address] Dr. Florencio Narayanan CBC AUTO DIFFon 06-09-2022 BASO # 0.1 103/ul Normal 0.0-0.[address] [facility] Comment on above: Performed By: #### C BC #### [facility] [address] [place] [address] Dr. Florencio Narayanan Basophils/100 WBC (Bld) 0.4 % Normal 0.2-2.[address] [facility] Comment on above: Performed By: #### C BC #### [facility] [address] [place] [address] Dr. Florencio Narayanan EO # 0.0 103/ul Normal 0.0-0.[address] [facility] Comment on above: Performed By: #### C BC #### [facility] [address] [place] [address] Dr. Florencio Narayanan Eosinophils/100 WBC (Bld) 0.2 % Critically low 0.9-7.[address] [facility] Comment on above: Performed By: #### C BC #### [facility] [address] [place] [address] Dr. Florencio Narayanan Erythrocyte distribution width (RBC) [Ratio] 12.3 % Normal 11.0-15.[address] [facility] Comment on above: Performed By: #### C BC #### [facility] [address] [place] [address] Dr. Florencio Narayanan Hematocrit (Bld) [Volume fraction] 38.4 % Normal 36.0-48.[address] [facility] Comment on above: Performed By: #### C BC #### [facility] [address] [place] [address] Dr. Florencio Narayanan Hemoglobin (Bld) [Mass/Vol] 12.7 g/dL Normal 12.0-16.[address] [facility] Comment on above: Performed By: #### C BC #### [facility] [address] [place] [address] Dr. Florencio Narayanan IG # 0.06 10e3/ul Critically high 0.00-0.03 [facility] Comment on above: Performed By: #### C BC #### [facility] [address] [place] [address] Dr. Florencio Narayanan IG % 0.5 % Normal 0.0-0.[address] [facility] Comment on above: Performed By: #### C BC #### [facility] [address] [place] [address] Dr. Florencio Narayanan LYMPH # 1.0 103/ul Critically low 1.2-3.[address] [facility] Comment on above: Performed By: #### C BC #### [facility] [address] [address] [address] Florencio Narayanan Lymphocytes/100 WBC (Bld) 8.4 % Critically low 20.5-60.[address] [facility] Comment on above: Performed By: #### C BC #### [facility] [address] [address] [address] Florencio Narayanan MANUAL DIFF REQ NO Normal [facility] Comment on above: Performed By: #### C BC #### [facility] [address] [place] [address] Dr. Florencio Naryaanan MCH (RBC) [Entitic mass] 32.4 pg Normal 26.7-34.0 [facility] Comment on above: Performed By: #### C BC #### [facility] [address] [place] [address] Dr. Florencio Narayanan MCHC (RBC) [Mass/Vol] 33.1 g/dL Normal 29.9-35.2 [facility] Comment on above: Performed By: #### C BC #### [facility] [address] [place] [address] Dr. Florencio Narayanan MCV (RBC) [Entitic vol] 98.0 fL Normal 81.0-99.[address] [facility] Comment on above: Performed By: #### C BC #### [facility] [address] [place] [address] Dr. Florencio Narayanan MONO # 1.6 103/ul Critically high 0.3-0.8 [facility] Comment on above: Performed By: #### C BC #### [facility] [address] [place] [address] Dr. Florencio Narayanan Monocytes/100 WBC (Bld) 13.1 % Critically high 1.7-12.0 [facility] Comment on above: Performed By: #### C BC #### [facility] [address] [place] [address] Dr. Florencio Narayanan NEUT # 9.5 103/ul Critically high 1.4-6.5 [facility] Comment on above: Performed By: #### C BC #### [facility] [address] [address] [address] Florencio Narayanan Neutrophils/100 WBC (Bld) 77.4 % Critically high 43.0-75.[address] [facility] Comment on above: Performed By: #### C BC #### [facility] [address] [address] [address] Florencio Narayanan Platelet mean volume (Bld) [Entitic vol] 9.4 fL Critically low 9.5-13.[address] [facility] Comment on above: Performed By: #### C BC #### [facility] [address] [address] [address] Florencio Narayanan PLT 140 103/ul Critically low 150-450 [facility] Comment on above: Performed By: #### C BC #### [facility] [address] [address] [address] Florencio Narayanan RBC 3.92 106/ul Critically low 4.20-5.40 [facility] Comment on above: Performed By: #### C BC #### [facility] [address] [address] [address] Florencio Narayanan WBC 12.2 103/ul Critically high 4.0-11.0 [facility] Comment on above: Performed By: #### C BC #### [facility] [address] [address] [address] STROKE HEAD WOon [...] No acute intracranial abnormality. Electronically authenticated by: LAUNA VILLAFANA Date: 2022-06-09 12:24 Normal [facility] Covid-19 PCR (CVDTB)on SARS-CoV-2 (COVID-19) [...] for this test is supported by the [place] of Health and Human Service's declaration that [...] C VDTB #### [facility] [address] [place] [address] Dr. Florencio Narayanan ER URINE PROFILEon 3 Bilirubin Ql (U) Negative Normal NEGATIVE [facility] Comment on above: Performed By: #### ADIEL LE #### [facility] [address] [place] [address] Dr. Florencio Narayanan Clarity (U) CLEAR Normal CLEAR [facility] Comment on above: Performed By: #### LIYAH LERO #### [facility] [address] [place] [address] Dr. Florencio Narayanan Color (U) LT. YELLOW Normal YELLOW [facility] Comment on above: Performed By: #### LIYAH LERO #### [facility] [address] [place] [address] Dr. Florencio Narayanan ERUAHD A micrscopic examination will be performed if indicated. Normal [facility] Comment on above: Performed By: #### LIYAH LERO #### [facility] [address] [place] [address] Dr. Florencio Narayanan Glucose Ql (U) Negative Normal NEGATIVE [facility] Comment on above: Performed By: #### MARIVEL LEICRO #### [facility] [address] [place] [address] Dr. Florencio Narayanan Hemoglobin Ql (U) LARGE Abnormal NEGATIVE [facility] Comment on above: Performed By: #### Malini PIZANO UMICRO #### [facility] [address] [place] [address] Dr. Florencio Narayanan Ketones Ql (U) TRACE Abnormal NEGATIVE [facility] Comment on above: Performed By: #### Malini PIZANO UMICRO #### [facility] [address] [place] [address] Dr. Florencio Narayanan LEUKOCYTES LARGE Abnormal NEGATIVE [facility] Comment on above: Performed By: #### MARIVEL LEICRO #### [facility] [address] [place] [address] Dr. Florencio Narayanan Nitrite Ql (U) Positive Abnormal NEGATIVE [facility] Comment on above: Performed By: #### Malini PIZANO UMICRO #### [facility] [address] [place] [address] Dr. Florencio Narayanan pH (U) 5.5 [pH] Normal 5-[address] [facility] Comment on above: Performed By: #### Malini PIZANO UMICRO #### [facility] [address] [place] [address] Dr. Florencio Narayanan SPEC GRAVITY 1.010 Normal 1.005-<=1.[address] [facility] Comment on above: Performed By: #### Malini PIZANO UMICRO #### [facility] [address] [place] [address] Dr. Florencio Narayanan UA PROTEIN TRACE Normal NEGATIVE/ TRACE [facility] Comment on above: Performed By: #### Malini PIZANO UMICRO #### [facility] [address] [place] [address] Dr. Florencio Narayanan UR MICRO IND INDICATED Normal [facility] Comment on above: Performed By: #### E HARINDER, UMICRO #### [facility] [address] [place] [address] Dr. Florencio Narayanan Urobilinogen Qn (U) 0.2 {Zenia'U}/dL Normal 0.2 - 1. [address] [facility] Comment on above: Performed By: #### ADIEL LE #### [facility] [address] [place] [address] Dr. Florencio Narayanan LIPASEon 06-09-2022 Lipase [Catalytic activity/Vol] 68.0 U/L Critically low 73.0-393.[address] [facility] Comment on above: Performed By: #### C MP, LIPA, CMADM #### [facility] [address] [place] [address] Dr. Florencio Narayanan PROF 14(COMP METB)on 023 Albumin [Mass/Vol] 2.5 g/dL Critically low 3.4-5.0 [facility] Comment on above: Performed By: #### C MP, LIPA, CMADM #### [facility] [address] [place] [address] Dr. Florencio Narayanan Albumin/Globulin [Mass ratio] 0.6 {ratio} Normal [facility] Comment on above: Performed By: #### C MP, LIPA, CMADM #### [facility] [address] [place] [address] Dr. Florencio Narayanan ALP [Catalytic activity/Vol] 150 U/L Critically high 46-[address] [facility] Comment on above: Performed By: #### C MP, LIPA, CMADM #### [facility] [address] [place] [address] Dr. Florencio Narayanan ALT [Catalytic activity/Vol] 27 U/L Normal 14-[address] [facility] Comment on above: Performed By: #### C MP, LIPA, CMADM #### [facility] [address] [place] [address] Dr. Florencio Narayanan Anion gap [Moles/Vol] 12.8 mmol/L Normal [facility] Comment on above: Performed By: #### C MP, LIPA, CMADM #### [facility] [address] [address] [address] Florencio Narayanan AST [Catalytic activity/Vol] 31 U/L Normal 15-[address] [facility] Comment on above: Performed By: #### C MP, LIPA, CMADM #### [facility] [address] [address] [address] Florencio Narayanan Bilirubin [Mass/Vol] 1.1 mg/dL Critically high 0.2-1.[address] [facility] Comment on above: Performed By: #### C MP, LIPA, CMADM #### [facility] [address] [address] [address] Florencio Narayanan Calcium [Mass/Vol] 9.1 mg/dL Normal 8.5-10.1 [facility] Comment on above: Performed By: #### C MP, LIPA, CMADM #### [facility] [address] [address] [address] Florencio Narayanan Chloride [Moles/Vol] 95 mmol/L Critically low 98-[address] [facility] Comment on above: Performed By: #### C MP, LIPA, CMADM #### [facility] [address] [address] [address] Florencio Narayanan CO2 [Moles/Vol] 29.4 mmol/L Normal 21.0-32.0 [facility] Comment on above: Performed By: #### C MP, LIPA, CMADM #### [facility] [address] [address] [address] Florencio Narayanan Creatinine [Mass/Vol] 1.34 mg/dL Critically high 0.55-1.[address] [facility] Comment on above: Performed By: #### C MP, LIPA, CMADM #### [facility] [address] [place] [address] Dr. Florencio Narayanan EGFR-AF BOTSWANAN 47 mL/min/1.73m2 Critically low >=[address] [facility] Comment on above: Performed By: #### C MP, LIPA, CMADM #### [facility] [address] [place] [address] Dr. Florencio Narayanan EGFR-NON AF BOTSWANAN 39 mL/min/1.73m2 Critically low >=[address] [facility] Comment on above: Performed By: #### C BLAKE LIPA, CMADM #### [facility] [address] [address] [address] Florencio Narayanan Globulin (S) [Mass/Vol] 4.3 g/dL Normal [facility] Comment on above: Performed By: #### C BLAKE, LIPA, CMADM #### [facility] [address] [address] [address] Florencio Narayanan Glucose [Mass/Vol] 118 mg/dL Critically high 74-106 T [facility] Comment on above: Performed By: #### C BLAKE LIPA, CMADM #### [facility] [address] [address] [address] Florencio Narayanan Potassium [Moles/Vol] 3.2 mmol/L Critically low 3.5-5.[address] [facility] Comment on above: Performed By: #### C MP, LIPA, CMADM #### [facility] [address] [address] [address] Florencio Narayanan Protein [Mass/Vol] 6.8 g/dL Normal 6.4-8.2 [facility] Comment on above: Performed By: #### C MP, LIPA, CMADM #### [facility] [address] [address] [address] Florencio Narayanan Sodium [Moles/Vol] 134 mmol/L Critically low 136-145 [facility] Comment on above: Performed By: #### C MP, LIPA, CMADM #### [facility] [address] [address] [address] Florencio Narayanan Urea nitrogen [Mass/Vol] 29.0 mg/dL Critically high 7.0-18.[address] [facility] Comment on above: Performed By: #### C MP, LIPA, CMADM #### [facility] [address] [address] [address] Florencio Narayanan Urea nitrogen/Creatinine [Mass ratio] 21.6 mg/mg Normal [facility] Comment on above: Performed By: #### C MP, LIPA, CMADM #### [facility] [address] [place] [address] Dr. Florencio Narayanan URINE MICROSCOPIC ONLYon BACTERIA SMALL Abnormal NONE SEEN [facility] Comment on above: Performed By: #### E RUR, UMICRO #### [facility] [address] [place] [address] Dr. Florencio Narayanan Bacteria identified Cx Nom (U) INDICATED Normal [facility] Comment on above: Performed By: #### E RUR, UMICRO #### [facility] [address] [place] [address] Dr. Florencio Narayanan CAST NONE SEEN Normal NONE SEEN [facility] Comment on above: Performed By: #### E RUR, UMICRO #### [facility] [address] [place] [address] Dr. Florencio Narayanan Crystals LM Nom (Urine sed) NONE SEEN Normal NONE SEEN [facility] Comment on above: Performed By: #### E RUR, UMICRO #### [facility] [address] [place] [address] Dr. Florencio Narayanan Epithelial cells LM Ql (Urine sed) FEW Abnormal NONE SEEN /RARE [facility] Comment on above: Performed By: #### E RUR, UMICRO #### [facility] [address] [place] [address] Dr. Florencio Narayanan MUCOUS NONE SEEN Normal NONE SEEN [facility] Comment on above: Performed By: #### E HARINDER, UMICRO #### [facility] [address] [place] [address] Dr. Florencio Narayanan RBC 2-5 Abnormal 0-2 [facility] Comment on above: Performed By: #### Malini PIZANO, UMICRO #### [facility] [address] [place] [address] Dr. Florencio Narayanan WBC 10-20 Abnormal NONE SEEN [facility] Comment on above: Performed By: #### E DANGELOR, UMICRO #### [facility] [address] [place] [address] Dr. Florencio Narayanan XR CHEST 2 Von [...] Trimethoprim/Sulfameth oxazole >=320 R F Normal [facility] Comment on above: Performed By: #### C BC #### [facility] [address] [place] [address] Dr. Florencio Narayanan MRI Hip w/o Righton [...] by Ramon Ambrocio on 09/11/2021 1545 Normal [facility] [employer] Consult Reporton 03-14-[address] [facility] CONSULTATION BETTIE BURNS 3ET [id number] OBSV ANABEL WATKINS MD [id number] REFERRING PHYSICIAN: CONSULTING PHYSICIAN: Renetta Almanzar MD DATE OF CONSULTATION: 03/11/2020 REASON: A near syncopal event in a 74-year-old female, with a history of atrial fibrillation, previous cardiac ablation, who was the time of evaluation noted to have a positive test for COVID. HISTORY OF PRESENT ILLNESS: Mrs. Burns is a very pleasant, alert and oriented -tjox-ylb female who was brought into the emergency [...] quarantine. Many thanks. RENETTA ALMANZAR MD BD/MedQ /[id number] Normal [facility] BASICMETAon 03-11-2020 GFR AA >60 Normal [facility] Comment on above: Result Comment: Afri can Burkinan GFR Calc Medical judgement is necessary to [...] for drug dosing. Performed By: #### 1 96938, 181443, 530539 ####[facility] Arrjgmyz30913 [place] [address] Medical Director: Fahad Cast MD GFR/1.73 sq M predicted among non-blacks MDRD (S/P/Bld) [Vol rate/Area] 56 mL/min/1.73m? Normal [facility] Comment on above: Result Comment: Non [...] for drug dosing. Performed By: #### 1 72949, 342005, 250397 ####[facility] [address]zudikj[address] [place] [address] Medical Director: Fahad Cast MD Osmolality [Osmolality] 291 mOsm/kg Normal 275-295 [facility] Comment on above: Performed By: #### 1 89240, 762565, 643953 ####[facility] Pbjrpeda99764 [place] [address] Medical Director: Fahad Cast MD Urea nitrogen/Creatinine [Mass ratio] 24.5 mg/mg Normal [facility] Comment on above: Performed By: #### 1 56399, 190965, 570152 ####[facility] Yuxtbtzp33957 [place] [address] Medical Director: Fahad Cast MD Calcium [Mass/Vol] 9.3 mg/dL Normal 8.5-10.5 [facility] Comment on above: Performed By: #### 1 62730, 895124, 581495 ####[facility] Lzpchhab56260 [place] [address] Medical Director: Fahad Cast MD Chloride [Moles/Vol] 108 mmol/L Normal 100-109 [facility] Comment on above: Performed By: #### 1 98567, 760891, 899019 ####[facility] Kvqefepi69856 [place] [address] Medical Director: Fahad Cast MD CO2, venous 28.9 mmol/L Normal 21.0-32.0 [facility] Comment on above: Performed By: #### 1 14104, 471939, 363093 ####[facility] Kbourrqf53112 [place] [address] Medical Director: Fahad Cast MD Creatinine [Mass/Vol] 1.0 mg/dL Normal 0.6-1.0 [facility] Comment on above: Performed By: #### 1 87035, 444885, 362824 ####[facility] Xtfsisbh00918 [place] [address] Medical Director: Fahad Cast MD Glucose [Mass/Vol] 98 mg/dL Normal 72-100 [facility] Comment on above: Result Comment: Sharon puncture should occur prior to sulfasalazine administration due to the potential for falsely depressed results. Venipuncture should occur prior to sulfapyridine administration due to the potential falsely elevated results. Baseline assay values before administration of sulfasalazine and sulfapyridine therapy would not be affected. Performed By: #### 1 48118, 237127, 809693 ####[facility] Trvozpus20747 [place] [address] Medical Director: Fahad Cast MD Potassium [Moles/Vol] 4.2 mmol/L Normal 3.5-5.1 [facility] Comment on above: Performed By: #### 1 51451, 318218, 254516 ####[facility] Xiyyfnoo05162 [place] [address](440) [facility]-2352Medical Director: Fahad Cast MD Sodium [Moles/Vol] 144 mmol/L Normal 135-145 [facility] Comment on above: Performed By: #### 1 13610, 992864, 097395 ####[facility] [address] [place] [phone]) [facility]-5112Medical Director: Fahad Cast MD Urea nitrogen [Mass/Vol] 24 mg/dL High 10-20 [facility] Comment on above: Performed By: #### 1 22628, 491986, 430914 ####[facility] Xejhszxu66900 [place] [address] Medical Director: Fahad Cast MD CBCNDon 03-11-2020 Erythrocyte distribution width (RBC) [Ratio] 14.4 % Normal 11.5-14.5 [facility] Comment on above: Performed By: #### 1 78774, 374603, 770954 #### [facility] [address] [place] [address] [employer] Associate: Fahad Cast MD Hematocrit (Bld) [Volume fraction] 33.9 % Low 36.0-46.0 [facility] Comment on above: Performed By: #### 1 09888, 989151, 299040 #### [facility] [address] [place] [address] [employer] Associate: Fahad Cast MD Hemoglobin (Bld) [Mass/Vol] 11.2 g/dL Low 12.0-16.0 [facility] Comment on above: Performed By: #### 1 74880, 362108, 452068 #### [facility] [address] [place] [address] [employer] Associate: Fahad Cast MD MCH (RBC) [Entitic mass] 29.5 pg Normal 27.0-34.0 [facility] Comment on above: Performed By: #### 1 82430, 360099, 222470 #### [facility] [address] [place] [address] [employer]: Fahad Cast MD MCHC (RBC) [Mass/Vol] 33.0 g/dL Normal 32.0-37.0 [facility] Comment on above: Performed By: #### 1 23115, 779719, 411794 #### [facility] [address] [place] [address] [employer] Associate: Fahad Cast MD MCV (RBC) [Entitic vol] 89.5 fL Normal 80.0-100.0 [facility] Comment on above: Performed By: #### 1 82071, 799755, 248351 #### [facility] [address] [place] [address] [employer]: Fahad Cast MD Platelet mean volume (Bld) [Entitic vol] 6.8 fL Low 7.4-10.4 [facility] Comment on above: Performed By: #### 1 52916, 289194, 370498 #### [facility] [address] [place] [address] [employer]: Fahad Cast MD Platelets (Bld) [#/Vol] 232 x1000 Normal 150-450 [facility] Comment on above: Performed By: #### 1 09151, 240646, 894683 #### [facility] [address] [place] [address] [employer] Associate: Fahad Cast MD RBC (Bld) [#/Vol] 3.79 x10 Low 4.20-5.40 [facility] Comment on above: Result Comment: Note : RBC morphology is normal unless otherwise stated. Evaluation performed only if differential is requested. Performed By: #### 1 48099, 437418, 027951 #### [facility] [address] [place] [address] [employer] Associate: Fahad Cast MD WBC (Bld) [#/Vol] 5.8 10*3/uL Normal [facility] Comment on above: Performed By: #### 1 40550, 315683, 684286 #### [facility] [address] [place] [address] [employer] Associate: Fahad Cast MD WBC (Bld) [#/Vol] 5.8 x10 Normal 4.5-11.0 [facility] Comment on above: Performed By: #### 1 22941, 063008, 065052 #### [facility] [address] [place], [place] [address] [employer] Associate: Fahad Cast MD D Dimer HSon 03-11-2020 D Dimer HS 821 ng/mL FEU High <=499 [facility] Comment on above: Result Comment: Excl usion of PE and DVT The D Dimer HS assay is reported in ng/ml Fibrinogen Equivalent Units (FEU). Per dope mixer?s instructions for use, a value less than 500ng/ml (FEU) may help to exclude DVT and /or PE in outpatients when the assay is used with a clinical pretest probability assessment. D-Dimer used for DIC Screens Assay results should be used with other information, including the clinical context in forming a diagnosis. Performed By: #### C [id number] ####[facility] [address] [place] [address] [id number]) [phone] Director: Fahad Cast MD LDHon 03-11-2020 LDH 198 unit/L Normal 84-246 [facility] Comment on above: Performed By: #### 1 25938, 556973, 512671 #### [facility] [address] [place] [address] [employer] Associate: Fahad Cast MD Progress Note-Physicianon Progress Note-Physician [...] medications. 6) DVT ppx: On Eliquis Normal [facility] Utilization Review Noteon Utilization Review Note ID Consult pending DISCHARGE WRITTEN AND PLANNED. Normal [facility] AUTO DIFFon 03-10-2020 Basophils (Bld) [#/Vol] 0.05 x1000 Normal 0.00-0.20 [facility] Comment on above: Performed By: #### 1 98036, 077739, 9061938 ####[facility] [address]xf12[address] [place] [address] Medical Director: Fahad Cast MD Basos % 0.6 % Normal [facility] Comment on above: Performed By: #### 1 54796, 282528, 3398127 ####[facility] Nmlrjiow48992 [place], [place] 6761430 Medical Director: Fahad Cast MD Eos Count 0.15 x1000 Normal 0.00-0.50 [facility] Comment on above: Performed By: #### 1 93285, 595583, 5044018 ####[facility] Brleponq19618 [place] [address] Medical Director: Fahad Cast MD Eosinophils/100 WBC (Bld) 1.8 % Normal [facility] Comment on above: Performed By: #### 1 60158, 601938, 6507004 ####[facility] Xwxvlkbq72016 [place] [address] Medical Director: Fhaad Cast MD Lymphocytes (Bld) [#/Vol] 1.05 x1000 Low 1.20-4.80 [facility] Comment on above: Performed By: #### 1 27718, 127369, 3082384 ####[facility] Lhzxdith98055 [place] [address] Medical Director: Fahad Cast MD Lymphocytes/100 WBC (Bld) 12.7 % Normal [facility] Comment on above: Performed By: #### 1 55559, 567710, 5318279 ####[facility] [address]vcnxgvt41401 [place] [address] Medical Director: Fahad Cast MD [place] Count 0.70 x1000 Normal 0.10-1.00 [facility] Comment on above: Performed By: #### 1 58962, 340367, 4491721 ####[facility] Drwugmhm96614 [place] [address] Medical Director: Fahad Cast MD Monocytes/100 WBC (Bld) 8.4 % Normal [facility] Comment on above: Performed By: #### 1 32189, 552770, 4944940 ####[facility] [address]pguoc13[address] [place] [address] Medical Director: Fahad Cast MD Neutrophils (Bld) [#/Vol] 6.32 x1000 Normal 1.40-8.80 [facility] Comment on above: Performed By: #### 1 59855, 945708, 6665745 ####[facility] Vfongzgp34142 [place] [address] Medical Director: Fahad Cast MD Neutrophils/100 WBC (Bld) 76.4 % Normal [facility] Comment on above: Performed By: #### 1 26843, 688952, 7391201 ####[facility] Mvizlyep39784 [place] [address] Medical Director: Fahad Cast MD COMPMETAon 03-10-2020 Albumin [Mass/Vol] 3.4 g/dL Normal 3.4-5.0 [facility] Comment on above: Performed By: #### 1 , 345979, 2661928 ####[facility] [address] [place] [phone]) [phone] Director: Fahad Cast MD Albumin/Globulin [Mass ratio] 0.8 {ratio} Normal [facility] Comment on above: Performed By: #### 1 , 288680, 4995837 ####[facility] S[address]ekt94247 [place], [place] [address]) [phone] Director: Fahad Cast MD Alk Phos 71 unit/L Normal 45-117 [facility] Comment on above: Performed By: #### 1 , 484472, 2224819 ####[facility] Urgquieg45486 [place], [place] [address]) [phone] Director: Fahad Cast MD Bilirubin [Mass/Vol] 0.37 mg/dL Normal 0.20-1.00 [facility] Comment on above: Result Comment: Use of this assay is not recommended for patients undergoing treatment with eltrombopag due to the potential for falsely elevated results. Performed By: #### 1 , 313784, 9258608 ####[facility] [address] [place] [phone]) [phone] Director: Fahad Cast MD Calcium [Mass/Vol] 9.4 mg/dL Normal 8.5-10.5 [facility] Comment on above: Performed By: #### 1 , 687566, 6150563 ####[facility] [address] [place] [phone]) [phone] Director: Fahad Cast MD Chloride [Moles/Vol] 108 mmol/L Normal 100-109 [facility] Comment on above: Performed By: #### 1 12721, 133805, 0880744 ####[facility] [address]cilfvb18973 [place] [address] Medical Director: Fahad Cast MD CO2, venous 28.2 mmol/L Normal 21.0-32.0 [facility] Comment on above: Performed By: #### 1 57126, 349742, 9957133 ####[facility] [address] [place] [phone]) [phone] Director: Fahad Cast MD Creatinine [Mass/Vol] 1.2 mg/dL High 0.6-1.0 [facility] Comment on above: Performed By: #### 1 95985, 003400, 2164516 ####[facility] Q[address]ok[address]86[address] [place], [place] [address]) [phone] Director: Fahad Cast MD GFR AA 53 [facility] Comment on above: Result Comment: Afri can [place]kin[place] GFR Calc Medical judgement is necessary to [...] for drug dosing. Performed By: #### 1 21507, 897435, 5242140 ####[facility] Ehmeffbq[address] [place] [phone]) [phone] Director: Fahad Cast MD GFR/1.73 sq M predicted among non-blacks MDRD (S/P/Bld) [Vol rate/Area] 44 mL/min/1.73m? [facility] Comment on above: Result Comment: Non [...] for drug dosing. Performed By: #### 1 91798, 799088, 7714361 ####[facility] Frxukpkw11344 [place] [address] Medical Director: Fahad Cast MD Globulin (S) [Mass/Vol] 4.0 g/dL Normal [facility] Comment on above: Performed By: #### 1 93463, 679917, 4437681 ####[facility] Nilmxuaa89157 [place] [address] Medical Director: Fahad Cast MD Glucose [Mass/Vol] 143 mg/dL High 72-100 [facility] Comment on above: Result Comment: Sharon puncture should occur prior to sulfasalazine administration due to the potential for falsely depressed results. Venipuncture should occur prior to sulfapyridine administration due to the potential falsely elevated results. Baseline assay values before administration of sulfasalazine and sulfapyridine therapy would not be affected. Performed By: #### 1 35787, 699456, 7807504 ####[facility] [address]sjnbc[address] [place] [address] Medical Director: Fahad Cast MD GOT 18 unit/L Normal 15-37 [facility] Comment on above: Result Comment: Sharon puncture should occur prior to sulfasalazine and/or sulfapyridine administration due to the potential for falsely depressed results. Baseline assay values before administration of sulfasalazine and sulfapyridine therapy would not be affected. Performed By: #### 1 86719, 491904, 0789998 ####[facility] Ftdybeem[address]150 [place] [address] Medical Director: Fahad Cast MD GPT 19 unit/L Normal 13-56 [facility] Comment on above: Result Comment: Sharon puncture should occur prior to sulfasalazine and/or sulfapyridine administration due to the potential for falsely depressed results. Baseline assay values before administration of sulfasalazine and sulfapyridine therapy would not be affected. Performed By: #### 1 62893, 627226, 2355597 ####[facility] Menskqxr28369 [place] [address] Medical Director: Fahad Cast MD Osmolality [Osmolality] 293 mOsm/kg Normal 275-295 [facility] Comment on above: Performed By: #### 1 85156, 025186, 4014376 ####[facility] [address]rezhro[address]44 [place] [address] Medical Director: Fahad Cast MD Potassium [Moles/Vol] 4.0 mmol/L Normal 3.5-5.1 [facility] Comment on above: Performed By: #### 1 62879, 766205, 9907450 ####[facility] [address]bf[address] [place] [address] Medical Director: Fahad Cast MD Protein [Mass/Vol] 7.4 g/dL Normal 6.0-8.5 [facility] Comment on above: Performed By: #### 1 09190, 682308, 2070079 ####[facility] [address]awle[address] [place] [address] Medical Director: Fahad Cast MD Sodium [Moles/Vol] 142 mmol/L Normal 135-145 [facility] Comment on above: Performed By: #### 1 50423, 267478, 3481221 ####[facility] Wxorcprg27429 [place] [address] Medical Director: Fahad Cast MD Urea nitrogen [Mass/Vol] 32 mg/dL High 10-20 [facility] Comment on above: Performed By: #### 1 18802, 196387, 0846979 ####[facility] Dusyazrf73077 [place] [address] Medical Director: Fahad Cast MD Urea nitrogen/Creatinine [Mass ratio] 26.7 mg/mg Normal [facility] Comment on above: Performed By: #### 1 53215, 809704, 3789194 ####[facility] Al[address]xe676[address] [place], [place] 7583730 Medical Director: Fahad Cast MD COVID-19 by PCR SWEDon 03-10 COVID-19 by PCR SWED Positive Abnormal [facility] Comment on above: Result Comment: CALL DEANNA CHRISTIE 03/10/2020 18:23:22 EST BY SHF; RBR Performed By: #### C [id number] ####[facility] [address]qpep[address] [place], [place] 6699130 Medical Director: Fahad Cast MD CRP QUANTon 03-10-2020 C-Reactive Protein, Quantitative 0.8 mg/dL High 0.0-0.3 [facility] Comment on above: Performed By: #### 1 24860, [id number], [id number], [id number] #### [facility] [address] [place] 8466430 [employer] Associate: Fhaad Cast MD CT ABD PELVIS W IV [...] by: Oni Liu MD 03/10/2020 3:50 PM GREEN CHAIN OFFBEARER Technologist: LIEN BLANCA Dictated By: ONI LIU MD Signed By: ONI LIU MD Signed Out: 03/10/20 16:50:49 Normal [facility] D Dimer HSon 03-10-2020 D Dimer HS 264 ng/mL FEU Normal <=499 [facility] Comment on above: Result Comment: Excl usion of PE and DVT The D Dimer HS assay is reported in ng/ml Fibrinogen Equivalent Units (FEU). Per dope mixer?s instructions for use, a value less than 500ng/ml (FEU) may help to exclude DVT and /or PE in outpatients when the assay is used with a clinical pretest probability assessment. D-Dimer used for DIC Screens Assay results should be used with other information, including the clinical context in forming a diagnosis. Performed By: #### 1 35976, [id number], [id number], [id number] #### [facility] [address] [place] [address] [employer] Associate: Fahad Cast MD ED Physician Reporton 2019 [...] Line Saline Flush: 3 mL, IV Push, [id number] Documented Medications Documented Eliquis 5 mg oral [...] /100WBC NA Lymph % 12.7 % NA [place] % 8.4 % NA Neutrophil % 76.4 % NA Eosin % 1.8 % NA Basos % 0.6 % NA Lymph Count 1.05 x1000 LOW [place] Count 0.70 x1000 NORMAL Neutrophil Count (ANC) [...] by: Monae Hernandez MD 03/10/2020 1:58 PM GREEN CHAIN OFFBEARER Signed By: MONAE HERNANDEZ MD CT ABD [...] by: Oni Liu MD 03/10/2020 3:50 PM GREEN CHAIN OFFBEARER Signed By: ONI LIU MD . Notes: [...] Course: improving. Impression and Plan Diagnosis Syncope ([id number] R55, Working, Medical) Plan Condition: Stable. Disposition: [...] accurately records my words and actions.. Normal [facility] ED Pre-Arrival Formon 2019 ED Pre-Arrival Form Pre-Arrival Summary Name: STR, Current Date: 03/10/2020 13:52:19 EST Gender: Date of : Age: Pre-Arrival Type: EMS ETA: 03/10/2020 14:15:00 EST Primary Care Physician: Presenting Problem: Pre-Arrival User: Neil Vázquez RN Referring Source: Location: 1 [facility] Emergency Department [address] [place] [address]. [place] [address] Notes: Vital Signs: Doctor Call Back: DNR Status: Miscellaneous Issues: Normal [facility] ED Progress Noteon 0 ED Progress Note report not put in by previous rn pt here for syncopal episode after diarrhea episode pt has hx of afib. pt covid+ report called to neil silva will come get pt Normal [facility] FERRITINon 03-10-2020 Ferritin [Mass/Vol] 32 ng/mL Normal 8-252 [facility] Comment on above: Performed By: #### 1 37709, [id number], [id number], [id number] #### [facility] [address] [place] [address] [employer] Associate: Fahad Cast MD HEMOon 03-10-2020 DIFF? No Normal [facility] Comment on above: Performed By: #### 1 86849, 259852, 9929380 ####[facility] [address]mydjbx36486 [place], [place] 6[address]) [phone] Director: Fahad Cast MD Erythrocyte distribution width (RBC) [Ratio] 14.5 % Normal 11.5-14.5 [facility] Comment on above: Performed By: #### 1 58543, 217969, 5865639 ####[facility] [address] [place] 8924330 Medical Director: Fahad Cast MD Hematocrit (Bld) [Volume fraction] 35.8 % Low 36.0-46.0 [facility] Comment on above: Performed By: #### 1 79730, 209372, 0504552 ####[facility] [address] [place] [id number]) [phone] Director: Fahad Cast MD Hemoglobin (Bld) [Mass/Vol] 11.7 g/dL Low 12.0-16.0 [facility] Comment on above: Performed By: #### 1 88721, 945903, 1594788 ####[facility] Qcaclcxs11707 [place] 8924330 Medical Director: Fahad Cast MD MCH (RBC) [Entitic mass] 29.4 pg Normal 27.0-34.0 [facility] Comment on above: Performed By: #### 1 86592, 602231, 4712153 ####[facility] [address] [place] [address] Medical Director: Fahad Cast MD MCHC (RBC) [Mass/Vol] 32.7 g/dL Normal 32.0-37.0 [facility] Comment on above: Performed By: #### 1 39271, 373019, 3312052 ####[facility] [address]mcfihdb78272 [place] [address] Medical Director: Fahad Cast MD MCV (RBC) [Entitic vol] 89.8 fL Normal 80.0-100.0 [facility] Comment on above: Performed By: #### 1 23363, 040067, 3623879 ####[facility] [address]awaj[address] [place] [address] Medical Director: Fahad Cast MD Nucleated RBC (Bld) [#/Vol] 0 /100WBC Normal [facility] Comment on above: Performed By: #### 1 09906, 453086, 3042854 ####[facility] Ustvmuod70906 [place] [address] Medical Director: Fahad Cast MD Platelet mean volume (Bld) [Entitic vol] 6.7 fL Low 7.4-10.4 [facility] Comment on above: Performed By: #### 1 71550, 903864, 5341537 ####[facility] [address]uf27[address] [place] [address] Medical Director: Fahad Cast MD Platelets (Bld) [#/Vol] 252 x1000 Normal 150-450 [facility] Comment on above: Performed By: #### 1 06512, 744656, 3382898 ####[facility] Fasvmlha99361 [place] [address] Medical Director: Fahad Cast MD RBC (Bld) [#/Vol] 3.99 x10 Low 4.20-5.40 [facility] Comment on above: Result Comment: Note : RBC morphology is normal unless otherwise stated. Evaluation performed only if differential is requested. Performed By: #### 1 99784, 013075, 8448278 ####[facility] [address]gykkz15445 [place] [address] Medical Director: Fahad Cast MD WBC (Bld) [#/Vol] 8.3 10*3/uL Normal [facility] Comment on above: Performed By: #### 1 10330, 889455, 4058720 ####[facility] [address]ynxh12322 [place] [address] Medical Director: Fahad Cast MD WBC (Bld) [#/Vol] 8.3 x10 Normal 4.5-11.0 [facility] Comment on above: Performed By: #### 1 22293, 274749, 8559836 ####[facility] Yoguojsn44022 [place] [address] Medical Director: Fahad Cast MD History and [...] 10 14:05) SBP 105 mmHg (MAR 10 16:) DBP L 50mmHg (MAR 10 16:) Physical [...] ppx: On Eliquis OT MESA on Normal [facility] LACTATEon 03-10-2020 Lactate [Moles/Vol] 1.8 mmol/L Normal 0.4-2.0 [facility] Comment on above: Performed By: #### 1 66952 #### [facility] [address] [place] [address] [employer] Associate: Fahad Cast MD LIPon 03-10-2020 Lipase [Catalytic activity/Vol] 135 unit/L Normal [id number] [facility] Comment on above: Performed By: #### 1 [id number] ####[facility] [id number] [place] [address] Medical Director: Fahad Cast MD MG LEVELon 03-10-2020 Magnesium [Mass/Vol] 1.9 mg/dL Normal 1.6-2.6 [facility] Comment on above: Performed By: #### 1 [id number], [id number] ####[facility] [id number] [place] [address] Medical Director: Fahad Cast MD PCTon 03-10-2020 Procalcitonin <0.05 Normal [facility] Comment on above: Result Comment: INTE [...] or septic shock. Performed By: #### 1 [id number], [id number] #### [facility] [id number] [place] [address] [employer] Associate: Fahad Cast MD TROPONINon 03-10-2020 Troponin I.cardiac [Mass/Vol] ng/mL Normal 0.000-0.099 [facility] Comment on above: Result Comment: This test is a quantitative determination of cardiac troponin I. High levels of serum biotin may interfere with this test. Performed By: #### 1 [id number], [id number] ####[facility] [id number] [place], [place] [id number] Medical Director: Fahad Cast MD XR CHEST [...] by: Monae Hernandez MD 03/10/2020 1:58 PM [employer] OFFBEARER Technologist: THANG JAMES Dictated By: MONAE HERNANDEZ MD Signed By: MONAE HERNANDEZ MD Signed Out: 03/10/20 14:58:26 Normal [facility] Vital Signs Date Time Vital Sign Value Performing Clinician Facility 07-14-2024 13:15-0400 Body height 165.1 cm Room COMPOUNDER-IDENTIFICATION AND RECORDS COMMANDER Work Phone: [facility] 07-14-2024 13:15-0400 Body mass index (BMI) [Ratio] 27.96 kg/m2 Room COMPOUNDER-IDENTIFICATION AND RECORDS COMMANDER Work Phone: [facility] 07-14-2024 13:15-040 Body weight 76.2 kg Room COMPOUNDER-IDENTIFICATION AND RECORDS COMMANDER Work Phone: [facility] 06-22-2024 12:54-0500 Blood Pressure Location Maria E Gutierreza [facility] 06-22-2024 12:54-0500 Diastolic blood pressure 55 mm[Hg] Maria E Jacqui [facility] 06-22-2024 12:54-0500 Heart rate 56 /min Maria E Jacqui [facility] 06-22-2024 12:54-0500 Respiratory rate 18 /min Maria E Gutierreza [facility] 06-22-2024 12:54-0500 Systolic blood pressure 125 mm[Hg] Maria E Jacqui [facility] 05-09-2024 09:17-0500 Body height 165.1 cm [facility] 05-09-2024 09:17-0500 Body mass index (BMI) [Ratio] 29.1 kg/m2 [facility] 05-09-2024 09:17-0500 Body weight 79.37 kg [facility] 05-09-2024 09:17-0500 Diastolic blood pressure 70 mm[Hg] [facility] 05-09-2024 09:17-0500 Heart rate 58 /min [facility] 05-09-2024 09:17-0500 Systolic blood pressure 116 mm[Hg] [facility] 04-30-2024 10:29-0500 Body height 165.1 cm [facility] 04-30-2024 10:29-0500 Body mass index (BMI) [Ratio] 29.1 kg/m2 [facility] 04-30-2024 10:29-0500 Body temperature 99.2 [degF] [facility] 04-30-2024 10:29-0500 Body weight 79.43 kg [facility] 04-30-2024 10:29-0500 Diastolic blood pressure 75 mm[Hg] [facility] 04-30-2024 10:29-0500 Heart rate 58 /min [facility] 04-30-2024 10:29-0500 Respiratory rate 16 /min [facility] 04-30-2024 10:29-0500 SaO2% (BldA) [Mass fraction] 94 % [facility] 04-30-2024 10:29-0500 Systolic blood pressure 146 mm[Hg] [facility] 02-01-2024 11:13-0400 Body height 165.1 cm [facility] 02-01-2024 11:13-0400 Body mass index (BMI) [Ratio] 28.3 kg/m2 [facility] 02-01-2024 11:13-0400 Body weight 77.11 kg [facility] 02-01-2024 11:13-0400 Diastolic blood pressure 72 mm[Hg] [facility] 02-01-2024 11:13-0400 Heart rate 60 /min [facility] 02-01-2024 11:13-0400 Systolic blood pressure 134 mm[Hg] [facility] 11-26-2023 14:080400 Body height 165.1 cm Miko Ohara MD Work Phone: [facility] 11-26-2023 14:08-0400 Body mass index (BMI) [Ratio] 27.96 kg/m2 Miko Ohara MD Work Phone: [facility] 11-26-2023 14:08-0400 Body temperature 97 [degF] Miko Ohara MD Work Phone: [facility] 11-26-2023 14:08-0400 Body weight 76.2 kg Miko Ohara MD Work Phone: [facility] 11-26-2023 09:56-0400 Body height 165.1 cm Mainor Post MD Work Phone: [facility] 11-26-2023 09:56-0400 Body mass index (BMI) [Ratio] 28.12 kg/m2 Mainor Post MD Work Phone: [facility] 11-26-2023 09:56-0400 Body weight 76.66 kg Mainor Post MD Work Phone: [facility] 11-26-2023 09:56-0400 Diastolic blood pressure 76 mm[Hg] Manior Post MD Work Phone: [facility] 11-26-2023 09:56-0400 Heart rate 56 /min Mainor Post MD Work Phone: [facility] 11-26-2023 09:56-0400 Systolic blood pressure 124 mm[Hg] Mainor Post MD Work Phone: [facility] 10-28-2023 08:41-0400 Body height 165.1 cm [facility] 10-28-2023 08:41-0400 Body mass index (BMI) [Ratio] 27.9 kg/m2 [facility] 10-28-2023 08:41-0400 Body weight 76.2 kg [facility] 10-28-2023 08:41-0400 Diastolic blood pressure 68 mm[Hg] [facility] 10-28-2023 08:41-0400 Heart rate 58 /min [facility] 10-28-2023 08:41-0400 Systolic blood pressure 106 mm[Hg] [facility] 08-20-2023 14:38-0400 Body height 165.1 cm Divine Dougherty Work Phone: [facility] 08-20-2023 14:38-0400 Body mass index (BMI) [Ratio] 27.96 kg/m2 Divine Dougherty Work Phone: [facility] 08-20-2023 14:38-0400 Body weight 76.2 kg Divine [employer] Work Phone: [facility] 07-23-2023 14:45-0400 Body height 165.1 cm Divine [employer] Work Phone: [facility] 07-23-2023 14:45-0400 Body mass index (BMI) [Ratio] 27.96 kg/m2 Divineeli Dougherty Work Phone: [employer] [facility] 07-23-2023 14:45-0400 Body weight 76.2 kg Divine [employer] Work Phone: [facility] 2023 15:34-0500 Body temperature 97.9 [degF] Miko Ohara MD Work Phone: [facility] 2023 15:34-0500 Diastolic blood pressure 53 mm[Hg] Miko Ohraa MD Work Phone: [employer] [facility] 2023 15:34-0500 Heart rate 80 /min Miko Ohara MD Work Phone: [employer] [facility] 2023 15:34-0500 Respiratory rate 16 /min Miko Ohara MD Work Phone: [facility] 2023 15:34-0500 SaO2% (BldA) [Mass fraction] 98 % Miko Ohara MD Work Phone: [facility] 2023 15:34-0500 Systolic blood pressure 110 mm[Hg] Miko Ohara MD Work Phone: [facility] 07-07-2023 16:39-0500 Body height 165.1 cm Miko Ohara MD Work Phone: [facility] 07-07-2023 16:39-0500 Body mass index (BMI) [Ratio] 28.02 kg/m2 Miko Ohara MD Work Phone: [facility] 07-07-2023 16:39-0500 Body weight 76.39 kg Miko Ohara MD Work Phone: [facility] 06-18-2023 14:31-0500 Body height 165.1 cm Miko Ohara MD Work Phone: [facility] 06-18-2023 14:31-0500 Body mass index (BMI) [Ratio] 28.12 kg/m2 Miko Ohara MD Work Phone: [facility] 06-18-2023 14:31-0500 Body weight 76.66 kg Miko Ohara MD Work Phone: [employer] [facility] 06-02-2023 11:19-0500 Body height 165.1 cm Donna Diaz MD Work Phone: [facility] 06-02-2023 11:19-0500 Body mass index (BMI) [Ratio] 28.12 kg/m2 Donna Diaz MD Work Phone: [facility] 06-02-2023 11:19-0500 Body weight 76.66 kg Donna Diaz MD Work Phone: [facility] 06-02-2023 11:19-0500 Diastolic blood pressure 68 mm[Hg] Donna Diaz MD Work Phone: [facility] 06-02-2023 11:19-0500 Heart rate 62 /min Donna Diaz MD Work Phone: [facility] 06-02-2023 11:19-0500 SaO2% (BldA) [Mass fraction] 99 % Donna Diaz MD Work Phone: [employer] 06-02-2023 11:19-0500 Systolic blood pressure 106 mm[Hg] Donna Diaz MD Work Phone: [employer] 05-14-2023 09:38-0500 Body height 165.1 cm Miko Ohara MD Work Phone: [employer] 05-14-2023 09:38-0500 Body mass index (BMI) [Ratio] 29.12 kg/m2 Miko Ohara MD Work Phone: [employer] 05-14-2023 09:38-0500 Body temperature 98.2 [degF] Miko Ohara MD Work Phone: [employer] 05-14-2023 09:38-0500 Body weight 79.38 kg Miko Ohara MD Work Phone: [employer] 10-30-2022 14:45-0400 Body height 165.1 cm Elliot Starks Other [employer] Other 10-30-2022 14:45-0400 Body mass index (BMI) [Ratio] 28.4 kg/m2 Elliot Starks Other [employer] Other 10-30-2022 14:45-0400 Body weight 77.43 kg Elliot Starks Other [employer] Other 10-30-2022 14:45-0400 Diastolic blood pressure 66 mm[Hg] Elliot Starks Other [employer] Other 10-30-2022 14:45-0400 Systolic blood pressure 123 mm[Hg] Elliot Starks Other [employer] Other 06-04-2022 11:30-0500 Body height 165.1 cm Elliot Starks Other [employer] Other 06-04-2022 11:30-0500 Body mass index (BMI) [Ratio] 28.29 kg/m2 Elliot Starks Other [employer] Other 06-04-2022 11:30-0500 Body weight 77.11 kg Elliot Starks Other [employer] Other 06-04-2022 11:30-0500 Diastolic blood pressure 64 mm[Hg] Elliot Starks Other [employer] Other 06-04-2022 11:30-0500 SaO2% (BldA) [Mass fraction] 99 % Elliot Starks Other [employer] Other 06-04-2022 11:30-0500 Systolic blood pressure 104 mm[Hg] Elliot Starks Other [employer] Other Encounters Encounter Date Encounter Type Care Provider Facility Start: 01-25-2025 ambulatory Maria E Osman [facility] Start: 10-26-2024 End: 10-26-2024 ambulatory Alfreda Miller Facility:[facility] Start: 10-26-2024 End: 10-26-2024 Patient encounter procedure Maria E Osman [facility] Start: 09-19-2024 End: 09-19-2024 ambulatory Alfreda Miller Facility:[facility] Start: 09-19-2024 End: 09-19-2024 Patient encounter procedure Alfreda Miller [facility] Start: 09-12-2024 End: 09-12-2024 ambulatory Jean Pierre MARTE Facility:[facility] Start: 09-12-2024 End: 09-12-2024 ambulatory Alfreda Miller Facility:[facility] Start: 09-12-2024 End: 09-12-2024 Patient encounter procedure Alfreda Miller [facility] Start: 08-22-2024 End: 08-22-2024 ambulatory Daisy Liz MD Facility:[facility] Start: 08-07-2024 End: 08-10-2024 Refill Vinicio Causey PA-C Work Phone: [facility] Comment on above: Med Refill Start: 08-03-2024 End: 08-04-2024 Refill Rosangela Montague APRN-IDENTIFICATION AND RECORDS COMMANDER Work Phone: [facility] Comment on above: Med Refill Start: 07-27-2024 End: 07-28-2024 [facility] Comment on above: Med Refill Start: 07-20-2024 End: 07-27-2024 Refill Miko Vasquez APRN-IDENTIFICATION AND RECORDS COMMANDER Work Phone: [facility] Comment on above: Med Refill Start: 07-20-2024 ambulatory Alfreda Miller Facility:[facility] Start: 07-14-2024 End: 07-14-2024 Postop follow up visit related to original px Paula Barrera APRN-AUSTEN Work Phone: [facility] Comment on above: Hx of total hip arth roplasty, right (Primary Dx) Start: 07-14-2024 End: 07-14-2024 Subsequent hospital visit by physician Paula HANEY Work Phone: [facility] Start: 07-14-2024 ambulatory ELLIOT STARKS [facility] Start: 06-30-2024 End: 07-06-2024 Refill Michael Castanon APRN-IDENTIFICATION AND RECORDS COMMANDER Work Phone: [facility] Comment on above: Med Refill Start: 06-22-2024 End: 07-26-2024 Pre-admission assessment Alfreda Miller [facility] Start: 06-22-2024 End: 06-22-2024 ambulatory Maria E Osman Facility:[facility] Start: 06-22-2024 End: 06-22-2024 Lab Drop off Maria E Osman [facility] Start: 06-22-2024 End: 06-22-2024 ambulatory Maria E Osman Facility:[facility] Start: 06-22-2024 End: 06-22-2024 Patient encounter procedure Maria E Osman [facility] Start: 06-21-2024 End: 06-21-2024 ambulatory [facility] Work Phone: Start: 06-21-2024 End: 06-21-2024 Patient encounter procedure [facility] Physician [facility] Work Phone: Start: 05-11-2024 Non-patient / Non-visit [facility] Phys[facility] Work Phone: Start: 05-09-2024 End: 05-09-2024 ambulatory [facility] Work Phone: Start: 05-09-2024 End: 05-09-2024 Patient encounter procedure [facility] Phys[facility] Work Phone: Start: 04-30-2024 End: 04-30-2024 Patient encounter procedure [facility] Physician [facility] Work Phone: Start: 04-04-2024 End: 04-04-2024 ambulatory Daisy Liz MD Facility:[facility] Start: 02-01-2024 End: 02-01-2024 ambulatory [facility] Work Phone: Start: 02-01-2024 End: 02-01-2024 Patient encounter procedure [facility] Physician [facility] Work Phone: Start: 01-02-2024 End: 01-05-2024 Refill Rosangela Kimballdeanna ROBN-IDENTIFICATION AND RECORDS COMMANDER Work Phone: [facility] Comment on above: Med Refill Start: 12-14-2023 End: 12-14-2023 ambulatory Daisy Liz MD Facility:[facility] Start: 11-26-2023 End: 11-26-2023 Subsequent hospital visit by physician Miko Ohara MD Work Phone: [facility] Start: 11-26-2023 ambulatory MIKO OHARA [facility] Start: 11-26-2023 End: 11-26-2023 Office outpatient visit 15 minutes Miko Ohara MD Work Phone: [facility] Comment on above: Hx of total hip arth roplasty, right (Primary Dx) Paroxysmal atrial fi brillation (CMS-HCC) (Primary Dx); Unstable angina (CMS-HCC); SOB (shortness of breath) Start: 11-25-2023 End: 11-25-2023 Telephone encounter [facility] Start: 10-28-2023 End: 10-28-2023 ambulatory [facility] Work Phone: Start: 10-28-2023 End: 10-28-2023 Patient encounter procedure [facility] Physician [facility] Work Phone: Start: 10-19-2023 End: 10-26-2023 Refill Mike Craft MD Work Phone: [facility] Comment on above: Med Refill Start: 09-30-2023 End: 10-01-2023 ambulatory ANDREW CHOI [facility] Start: 09-17-2023 Telephone encounter Matt Duron Hematology/Oncology Comment on above: Yearly Exam With Shane rodriguez Start: 08-20-2023 End: 08-20-2023 Subsequent hospital visit by physician Divine Dougherty Work Phone: [facility] Start: 08-20-2023 ambulatory DIVINE DOUGHERTY [facility] Start: 08-20-2023 End: 08-20-2023 Postop follow up visit related to original px Divine Dougherty Work Phone: [facility] Comment on above: Right hip pain (Prim hayden Dx) Start: 08-20-2023 ambulatory [facility] Start: 08-12-2023 End: 08-12-2023 ambulatory [place] Malini VASQUEZ [facility] Start: 08-10-2023 End: 08-13-2023 Refill Divine Kaur APRN-IDENTIFICATION AND RECORDS COMMANDER Work Phone: [facility] Comment on above: Med Refill Start: 07-23-2023 End: 07-23-2023 Postop follow up visit related to original px Divine Dougherty Work Phone: [facility] Comment on above: Tear of gluteus mini mus tendon, right, initial encounter (Primary Dx) Start: 07-23-2023 End: 07-23-2023 Subsequent hospital visit by physician Divine Dougherty Work Phone: [facility] Start: 07-23-2023 ambulatory DIVINEELI SIMENTALBENNIE [facility] Start: 07-17-2023 Refill Mike galloway MD Work Phone: [facility] Comment on above: Med Refill Start: 07-15-2023 End: 07-16-2023 Emergency department patient visit EILEEN BLANTON [facility] Start: 07-15-2023 Telephone encounter Ashia Goncalves [facility] Start: 07-15-2023 End: 07-15-2023 Emergency department patient visit ELLIOT Malini [facility] Start: 07-07-2023 End: 2023 Evaluation and management of inpatient Miko Ohara MD Work Phone: [facility] Comment on above: Status post revision of total hip Start: 07-07-2023 End: 2023 Patient encounter status Miko Ohara MD Work Phone: [facility] Start: 07-01-2023 Patient encounter status [facility] Start: 06-19-2023 Telephone encounter Jacqueline Sparrow RN [facility] Comment on above: Pre op clearance Start: 06-18-2023 End: 06-18-2023 Office outpatient visit 40 minutes Miko Ohara MD Work Phone: [facility] Comment on above: Right hip pain (Prim hayden Dx) Start: 06-02-2023 End: 06-02-2023 Office outpatient visit 25 minutes Donna Diaz MD Work Phone: [facility] Comment on above: Paroxysmal atrial fi brillation (CMS-HCC) (Primary Dx); Primary hypertension; Chronic coronary artery disease Start: 06-02-2023 End: 06-02-2023 ambulatory MERCY DIAZ [facility] Start: 05-14-2023 End: 05-14-2023 Office outpatient new 30 minutes Miko Ohara MD Work Phone: [facility] Comment on above: Pain in prosthetic j oint, initial encounter (Primary Dx); Primary osteoarthritis of right hip Start: 05-14-2023 End: 05-14-2023 Subsequent hospital visit by physician Miko Ohara MD Work Phone: [facility] Start: 03-30-2023 (Televisit) Televisit [facility] Start: 03-30-2023 End: 03-30-2023 ambulatory Elliot Starks Other [employer] Other Start: 02-11-2023 End: 02-11-2023 Patient encounter procedure Alfreda Miller [facility] Start: 12-29-2022 Preoperative state Donna franks MD Work Phone: [facility] Start: 11-17-2022 End: 11-17-2022 ambulatory Elliot Starks Other [employer] Other Start: 11-17-2022 Telephone encounter Elliot Starks [facility] Start: 10-30-2022 End: 10-30-2022 ambulatory Elliot Starks Other [employer] Other Start: 10-30-2022 Office outpatient vi sit 15 minutes Elliot Starks [facility] Start: 10-29-2022 End: 10-29-2022 ambulatory Elliot Starks Other [employer] Other Start: 10-29-2022 Telephone encounter Elliot Starks [facility] Start: 10-27-2022 Nursing evaluation o f patient and report Elliot Starks [facility] Start: 10-27-2022 End: 10-27-2022 ambulatory Elliot Starks [employer] Other Start: 10-27-2022 End: 10-27-2022 Departed Referred MD Elliot Starks Work Phone: [facility] Work Phone: Start: 09-11-2022 Telephone encounter Matt Duron Hematology/Oncology Comment on above: Orders Start: 08-11-2022 End: 08-11-2022 ambulatory Elliot Starks Other [employer] Other Start: 08-11-2022 Nursing evaluation o f patient and report Elliot Starks [facility] Start: 07-17-2022 (Televisit) Televisit Elliot Dela Cruz [facility] Start: 07-17-2022 End: 07-17-2022 ambulatory Elliot Starks Other [employer] Other Start: 06-23-2022 End: 06-23-2022 ambulatory Elliot Starks Other [employer] Other Start: 06-23-2022 Nursing evaluation o f patient and report Elliot Starks [facility] Start: 06-09-2022 End: 06-09-[address] ELLIOT STARKS Facility:[facility] Start: 06-06-2022 End: 06-06-2022 ambulatory Elliot Starks Other [employer] Other Start: 06-06-2022 Telephone encounter Elliot Starks [facility] Start: 06-04-2022 End: 06-04-2022 ambulatory Elliot Starks Other [employer] Other Start: 06-04-2022 Office outpatient vi sit 25 minutes Elliot Starks [facility] Start: 05-21-2022 End: 05-21-2022 ambulatory Elliot Starks Other [employer] Other Start: 05-21-2022 Telephone encounter Elliot Starks [facility] Start: 04-26-2022 End: 04-26-[address] ELLIOT STARKS Facility:[facility] Start: 04-14-2022 End: 04-14-[address] ELLIOT STARKS Facility:[facility] Start: 12-18-2021 End: 12-18-2021 ambulatory Melchor Goff [place] Facility:[facility] Start: 10-03-2021 Telephone encounter Andrew black MD Work Phone: Hematology/Oncology Comment on above: Lab Orders Start: 09-26-2021 Telephone encounter Mikaela jimenez RN Work Phone: Hematology/Oncology Comment on above: Radiology Mammogram Start: 12-02-2016 End: 12-03-2016 Ambulatory DEFAULT PHYSICIAN Facility:[facility] Procedures Date Procedure Procedure Detail Performing Clinician Start: 2023 Basic metabolic pane l calcium total Chance Mahoney MD Work Phone: Start: 2023 Complete blood count with white cell differential, automated Paula Barrera COMPOUNDER-IDENTIFICATION AND RECORDS COMMANDER Work Phone: Start: 07-07-2023 Cultyp nuc acid amp prb cult/isolate ea orgsandram Chance Mahoney MD Work Phone: Start: 07-07-2023 Radiologic examinati on pelvis 1/2 views Paula Barrera COMPOUNDER-IDENTIFICATION AND RECORDS COMMANDER Work Phone: Start: 07-07-2023 Cell count miscellan [...] Start: 01-02-2025 Influenza vaccination Influenza Vacc ine [facility] Start: 11-25-2024 Adult BMI Screening [facility] Start: 11-25-2024 Tobacco Screening Tobacco Screening [facility] Start: 09-29-2024 Adult BMI Screening [facility] Start: 09-29-2024 Screening for malign ant neoplasm of breast MAMMOGRAM SCREENING [facility] Start: 08-11-2024 Adult BMI Screening [facility] Start: 08-11-2024 End: 08-10-2025 CBC panel - Blood by Automated count CBC Lab Routine Paroxysmal atrial fibrillation ([facility]-HCC) Benign hypertension Expected: 08/11/2024 (Approximate), Expires: 08/10/2025 [facility] [employer] Comment on above: Expected: 08/11/2024 (Approximate), Expires: 08/10/2025 Start: 08-11-2024 End: 08-10-2025 Comprehensive metabolic 2000 panel - Serum or Plasma CMP Lab Routine Paroxysmal atrial fibrillation (CMS-HCC) Benign hypertension Expected: 08/11/2024 (Approximate), Expires: 08/10/2025 [employer] Phone: Comment on above: Expected: 08/11/2024 (Approximate), Expires: 08/10/2025 Start: 08-11-2024 End: 08-10-2025 Magnesium [Mass/volume] in Serum or Plasma Magnesium Lab Routine Paroxysmal atrial fibrillation (CMS-HCC) Benign hypertension Expected: 08/11/2024 (Approximate), Expires: 08/10/2025 [facility] Comment on above: Expected: 08/11/2024 (Approximate), Expires: 08/10/2025 Start: 08-11-2024 Tobacco Screening Tobacco Screening [facility] Start: 07-14-2024 Tobacco Screening Tobacco Screening [facility] Start: 07-14-2024 End: 07-14-2024 Patient encounter procedure 07/14/2024 11:20 AM EDT Office Visit [facility] [address] [place] [address] Miko Ohara MD [address] [place] [address] [facility] Start: 07-07-2024 Potassium [Moles/vol ume] in Serum or Plasma POTASSIUM [facility] Start: 06-02-2024 Adult BMI Screening Adult BMI Screen ing [facility] Start: 06-02-2024 Tobacco Screening Tobacco Screening [facility] Start: 02-16-2024 End: 02-16-2024 Patient encounter procedure 02/16/2024 11:00 AM EDT Office Visit [facility] [address] [facility] [address] [place] [address] Sheridan Reyes MD [address] [place] [address] [facility] Start: 01-03-2024 COVID-19 Vaccine ( season) COVID-19 Vaccine ( season) [facility] Start: 01-03-2024 COVID-19 Vaccine ( season) COVID-19 Vaccine ( season) [facility] Start: 01-03-2024 Influenza vaccination [facility] Start: 11-26-2023 End: 11-26-2023 Patient encounter procedure [facility] Start: 10-09-2023 DIABETES SCREEN DIABETES SCREEN [facility] Start: 10-09-2023 Diabetes Screening Diabetes Screenin g [facility] Start: 08-20-2023 End: 08-20-2023 Patient encounter procedure 08/20/2023 2:30 PM EDT Office Visit [facility] [address] [place] [id number] Divine Dougherty [address] [place] [id number] [facility] Start: 08-12-2023 End: 08-12-2023 Patient encounter procedure 08/12/2023 8:00 AM EDT Office Visit [facility] [address] [place] [phone] Miko Vasquez, COMPOUNDER-IDENTIFICATION AND RECORDS COMMANDER [address] [place] [address] [facility] Start: 07-23-2023 End: 07-23-2023 Patient encounter procedure 07/23/2023 2:30 PM EDT Office Visit [address] [address] Divine Dougherty [address] [place] [id number] [facility] Start: 07-07-2023 End: 07-07-2023 Evaluation and [...] [facility] [address] [place] [address] Pre-op testing (Primary Dx); Essential (primary) hypertension; Abnormal finding of blood chemistry, unspecified; Abnormal coagulation profile [facility] Comment on above: Pre-op testing (Prim hayden Dx); Essential (primary) hypertension; Abnormal finding of blood chemistry, unspecified; Abnormal coagulation profile Start: 06-13-2023 COVID-19 Vaccine () COVID-19 Vaccine () [facility] Start: 05-28-2023 End: 05-28-2023 Patient encounter procedure 05/28/2023 11:00 AM EST Office Visit [facility] [address] [place] [address] Peter Gardiner, [address] [place] [address] [facility] Start: 05-14-2023 End: 05-14-2024 MR Hip - right WO contrast MRI HIP RIGHT WITHOUT CONTRAST Imaging Routine Pain in prosthetic joint, initial encounter Expected: 05/14/2023, Expires: 05/14/2024 [facility] Comment on above: Expected: 05/14/2023 , Expires: 05/14/2024 Start: 05-04-2023 Advance Directive Discussion Advance Directive Discussion [facility] Start: 05-04-2023 Behavioral Health Screening Behavioral Health Screening [facility] Start: 01-02-2023 Covid-19 Vaccine () Covid-19 Vaccine () [facility] Start: 01-02-2023 COVID-19 VACCINE (4 - 2023-24 season) COVID-19 VACCINE ( season) [facility] Start: 01-02-2023 Influenza vaccination INFLUENZA (Sea son Ended) [facility] Start: 10-27-2022 Bacteria identified in Urine by Culture [facility] Start: 05-04-2022 ADVANCE DIRECTIVE DISCUSSION ADVANCE DIRECTIVE DISCUSSION [facility] Start: 05-04-2022 DEPRESSION ASSESSMENT DEPRESSION ASS ESSMENT [facility] Start: 04-08-2022 Screening for malign ant neoplasm of colon Colonoscopy [facility] Start: 01-02-2022 Influenza vaccination INFLUENZA (Sea son Ended) [facility] Start: 10-07-2021 End: 12-07-2021 Cancer Ag 27-29 [Units/volume] in Serum or Plasma CA 27.29 BLOOD Lab Routine Malignant neoplasm of upper-outer quadrant of left breast in female, estrogen receptor positive (HCC) Expected: 10/07/2021, Expires: 12/07/2021 [facility] Work Phone: Comment on above: Expected: 10/07/2021 , Expires: 12/07/2021 Start: 10-07-2021 End: 12-07-2021 CBC W Auto Differential panel - Blood CBC + DIFF Lab Routine Malignant neoplasm of upper-outer quadrant of left breast in female, estrogen receptor positive (HCC) Expected: 10/07/2021, Expires: 12/07/2021 [facility] Work Phone: Comment on above: Expected: 10/07/2021 , Expires: 12/07/2021 Start: 10-07-2021 End: 12-07-2021 Comprehensive metabolic 2000 panel - Serum or Plasma COMP METABOLIC PANEL Lab Routine Malignant neoplasm of upper-outer quadrant of left breast in female, estrogen receptor positive (HCC) Expected: 10/07/2021, Expires: 12/07/2021 [facility] Work Phone: Comment on above: Expected: 10/07/2021 , Expires: 12/07/2021 Start: 09-25-2021 Mammography MAMMOGRAM [facility] Start: 05-04-2021 ADVANCE DIRECTIVE DISCUSSION ADVANCE DIRECTIVE DISCUSSION [facility] Start: 11-17-2020 COVID-19 VACCINE (3 - Booster for Pfizer series) COVID-19 VACCINE (3 - Booster for Pfizer series) [facility] Start: 10-06-2020 Adult depression screening assessment DEPRESSION SCREENING [facility] Start: 08-15-2020 COVID-19 VACCINE (3 - Booster for Pfizer series) COVID-19 VACCINE (3 - Booster for Pfizer series) [facility] Start: 01-05-2019 Pneumococcal Vaccine : 65+ (2 of 2 - PCV) Pneumococcal Vaccine: 65+ (2 of 2 - PCV) [facility] Start: 01-05-2019 PNEUMOCOCCAL: 65+ (2 - PCV) PNEUMOCOCCAL: 65+ (2 - PCV) [facility] Start: 07-07-2012 BONE DENSITY BONE DENSITY [facility] Start: 07-07-2012 Fall Risk Screening Fall Risk Screen ing [facility] Start: 07-07-2012 Screening for osteoporosis Bone Density Screening [facility] Start: 2007 RSV Vaccine (1 - 1-d ose 60+ series) RSV Vaccine (1 - 1-dose 60+ series) [facility] Start: 07-07-1997 Administration of varicella zoster vaccine Zoster (Shingles) Vaccine (1 of 2) [facility] Start: 07-07-1997 SHINGRIX VACCINE (1 of 2) SHINGRIX VACCINE (1 of 2) [facility] Start: 07-07-1997 Zoster vaccine hzv l david for subcutaneous use ZOSTER (SHINGLES) VACCINE (1 of 2) [facility] Start: 07-07-1992 COLOGUARD (FIT-DNA) COLOGUARD (FIT-D NA) [facility] Start: 07-07-1992 Colonoscopy COLONOSCOPY [facility] Start: 07-07-1992 COLORECTAL CANCER SCREENING COLORECTAL CANCER SCREENING [facility] Start: 07-07-[address] COLONOGRAPHY [facility] Start: 07-07-1992 FECAL OCCULT BLOOD FECAL OCCULT BLOO D [facility] Start: 07-07-1992 LIPID SCREEN LIPID SCREEN [facility] Start: 07-07-1992 Screening for malign ant neoplasm of colon COLORECTAL CANCER SCREENING DISCUSSION [facility] Start: 07-07-1992 SIGMOIDOSCOPY SIGMOIDOSCOPY [facility] Start: 1987 Lipid panel LIPID SCREENING [facility] Start: 1987 Screening for malign ant neoplasm of breast MAMMOGRAM SCREENING DISCUSSION [facility] Start: 07-07-1968 Screening for malign ant neoplasm of cervix CERVICAL CANCER SCREENING DISCUSSION [facility] Start: 07-07-1966 DTaP,Tdap and Td Vaccines (1 - Tdap) DTaP,Tdap and Td Vaccines (1 - Tdap) [facility] Start: 07-07-1966 Third diphtheria, tetanus and acellular pertussis (DTaP) vaccination TDAP (ADULT) [facility] Start: 07-07-1966 Urine microalbumin profile [facility] Start: 07-07-1965 Adult BMI Follow Up Plan Adult BMI F ollow Up Plan [facility] Start: 07-07-1965 HEPATITIS C SCREENING HEPATITIS C SC REENING [facility] Start: 1959 Depression Screening Depression Scre ening [facility] Start: 07-07-1953 PNEUMOCOCCAL: 65+ (1 - PCV) PNEUMOCOCCAL: 65+ (1 - PCV) [facility] Start: 1947 Hepatitis C screening HEPATITI S C VIRUS SCREENING [facility] Start: 1947 Medicare Annual Well ness Visit Medicare Annual Wellness Visit [facility] Start: 1947 Potassium [Moles/vol ume] in Serum or Plasma POTASSIUM [facility] Start: 1947 Screening for osteoporosis DEXA SCAN DISCUSSION [facility] Start: 1945 Tetanus vaccination TETANUS [facility] ANAEROBE CULTURE [facility] Comment on above: Release Upon Orderin g for 1 Occurrences starting 07/07/2023 Bacterial culture an d sensitivity CULTURE WOUND Microbiology Routine 07/07/2023 2:27 PM EST [facility] BODY FLUID CELL COUNT BODY FLUID CELL COUNT Fluids Routine Tear of rotator cuff of right hip, initial encounter 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, initial encounter Release Upon Ordering for 1 Occurrences starting 07/07/2023 [facility] Comment on above: Release Upon Orderin g for 1 Occurrences starting 07/07/2023 End: 08-04-2025 Comprehensive metabolic 2000 panel - Serum or Plasma Comprehensive metabolic panel Lab Routine Primary hypertension Coronary artery disease involving cachil dehe coronary artery of c[place]il dehe heart with unstable angina pectoris ([facility]-HCC) 1 Occurrences starting 08/04/2024 until 08/04/2025 [employer] Work Phone: Comment on above: 1 Occurrences starti ng 08/04/2024 until 08/04/2025 End: 10-16-2024 DBT Breast - bilateral screening SHANE SCREENING [facility] Radiology Routine Encounter for screening mammogram for malignant neoplasm of breast 1 Occurrences starting 09/17/2023 until 10/16/2024 [facility] Work Phone: Comment on above: 1 Occurrences starti ng 09/17/2023 until 10/16/2024 End: 07-07-2023 Fungus identified in Unspecified specimen by Culture [employer] Comment on above: Release Upon Orderin g for 1 Occurrences starting 07/07/2023 One Time for 1 Occur rences starting 07/07/2023 until 07/07/2023 End: 08-04-2025 Magnesium [Mass/volume] in Serum or Plasma Magnesium Lab Routine Primary hypertension Coronary artery disease involving cachil dehe coronary artery of c[place] de[place] heart with unstable angina pectoris ([facility]-HCC) 1 Occurrences starting 08/04/2024 until 08/04/2025 [facility] [employer] Comment on above: 1 Occurrences starti ng 08/04/2024 until 08/04/2025 End: 10-26-2022 SHANE SCREENING W YAW SHANE SCREENING [facility] Radiology Routine Encounter for screening mammogram for malignant neoplasm of breast 1 Occurrences starting 09/26/2021 until 10/26/2022 [facility] Work Phone: Comment on above: 1 Occurrences starti ng 09/26/2021 until 10/26/2022 End: 10-11-2023 SHANE SCREENING W YAW SHANE SCREENING [facility] Radiology Routine Encounter for screening mammogram for malignant neoplasm of breast 1 Occurrences starting 09/11/2022 until 10/11/2023 [facility] Work Phone: Comment on above: 1 Occurrences starti ng 09/11/2022 until 10/11/2023 End: 07-07-2023 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 [employer] Comment on above: Release Upon Orderin g for 1 Occurrences starting 07/07/2023 One Time for 1 Occur rences starting 07/07/2023 until 07/07/2023 XR Pelvis and Hip - right Views XR HIP WITH PELVIS RIGHT Imaging Routine Primary osteoarthritis of right hip 05/14/2023 9:20 AM EST [employer] Work Phone: XR Pelvis and Hip - right Views XR HIP WITH PELVIS RIGHT Imaging Routine Tear of gluteus minimus tendon, right, initial encounter 07/23/2023 2:22 PM EDT [employer] [facility] XR Pelvis and Hip - right Views XR HIP WITH PELVIS RIGHT Imaging Routine Right hip pain 08/20/2023 3:17 PM EDT [employer] [facility] XR Pelvis and Hip - right Views XR HIP WITH PELVIS RIGHT Imaging Routine Hx of total hip arthroplasty, right 11/26/2023 1:53 PM EDT [employer] [facility] XR Pelvis and Hip - right Views XR HIP WITH PELVIS RIGHT Imaging Routine Hx of total hip arthroplasty, right 07/14/2024 1:07 PM EDT [facility] Immunizations Immunization Date Immunization Notes Care Provider Pablo wheat 02-08-2024 influenza virus vaccine, unspecified formulation Maria E Osman [facility] 02-10-2023 influenza virus vaccine, unspecified formulation Alfreda Lue [facility] 02-01-2022 influenza virus vaccine, unspecified formulation Alfreda Lue [facility] 08-13-2021 SARS-CoV-2 mRNA (qwznykyeulq-vfpj-thfbb se) vaccine Alfreda Lue [facility] 01-29-2021 SARS-CoV-2 (COVID-19 ) mRNA BNT-162b2 vax Alfreda Lue [facility] Comment on above: Result Comment: 2022: [id number] 06-20-2020 COVID-19 vaccine, ag e 12+ yr ([email or web address] - PURPLE TOP) Mikaela Thompson RN Work Phone: [facility] 05-28-2020 SARS-CoV-2 (COVID-19 ) mRNA BNT-162b2 vax Alfreda Lue [facility] 05-18-2020 COVID-19 vaccine, ag e 12+ yr ([employer] - PURPLE TOP) Mikaela Thompson RN Work Phone: [facility] 01-27-2020 influenza virus vaccine, split virus (incl. purified surface antigen) Elliot Starks Other [employer] Other 01-27-2020 influenza virus vaccine, unspecified formulation Alfreda Lue [facility] 01-20-2019 influenza virus vaccine, unspecified formulation Alfreda Lue [facility] 01-20-2019 influenza, high dose seasonal, preservative-free Mikaela Thompson RN Work Phone: [facility] 03-09-2018 influenza virus vaccine, unspecified formulation Alfreda Lue [facility] 01-05-2018 influenza virus vaccine, split virus (incl. purified surface antigen) Elliot Starks Other [employer] Other 01-05-2018 influenza virus vaccine, unspecified formulation Alfreda Lue [facility] 01-05-2018 influenza, high dose seasonal, preservative-free Mikaela Thompson RN Work Phone: [facility] 01-05-2018 pneumococcal polysaccharide vaccine, 23 valent Mikaela Thompson RN Work Phone: [facility] 02-25-2017 influenza virus vaccine, unspecified formulation Alfreda Lue [facility] 02-17-2017 pneumococcal polysaccharide vaccine, 23 valent Alfreda Lue [facility] 02-05-2017 influenza virus vaccine, split virus (incl. purified surface antigen) Elliot Starks Other [employer] Other 02-05-2017 influenza virus vaccine, unspecified formulation Alfreda Miller [facility] 02-05-2017 pneumococcal conjuga te vaccine, 13 valent Alfreda Miller [facility] 02-01-2002 pneumococcal polysaccharide vaccine, 23 valent Elliot Starks Other [facility] Payers Date Payer Category Payer Private Health Insurance [id number] 2023 Medicare (Managed Care) MEDICARE [employer] PPO [id number] 2022 Self-pay 2021 Medicare HMO [employer] MEDICARE [id number] 2014 Medicare [employer] MEDICARE A [employer] MEDICARE PPO [id number] 2014-Present [phone] [address] [place] [address] PPO [id number] 2014 Medicare [id number]. [id number] 1959 Medicare [id number] 1947 Unknown [id number] 2.16840.1.750886.3.579.2. 593 1947 Unknown [id number] 2.16840.1.250279.3.579.2. 593 1947 Unknown [id number] 2.16840.1.905463.3.579.2. 593 1947 Unknown [id number] 2.16840.1.255747.3.579.2. 718 1947 Unknown [id number] 2.16840.1.877655.3.579.2. 1286 1947 Unknown [id number] 2.16840.1.792719.3.579.2. 1286 1947 Unknown [id number] 2.16.840.1.181077.3.579.2. 1286 1947 Unknown [id number] 2.16.840.1.488331.3.579.2. 1286 1947 Unknown [id number] 2.16840.1.263185.3.579.2. 1286 1947 Unknown [id number] 2.16840.1.474926.3.579.2. 727 1947 Unknown [id number] 2.16.840.1.258265.3.579.2. 727 1947 Unknown [id number] 2.16.840.1.631552.3.579.2. 727 1947 Unknown [id number] 2.16.840.1.583652.3.579.2. 983 1947 Unknown [id number] 2.16.840.1.971820.3.579.2. 983 1947 Unknown [id number] 2.16.840.1.271122.3.579.2. 983 1947 Unknown [id number] 2.16.840.1.866979.3.579.2. 983 1947 Unknown [id number] 2.16.840.1.353109.3.579.2. 983 1947 Unknown [id number] 2.16.840.1.676213.3.579.2. 983 1947 Unknown [id number] 2.16.840.1.235770.3.579.2. 983 1947 Unknown [id number] 2.16.840.1.150204.3.579.2. 983 1947 Unknown [id number] 2.16.840.1.806261.3.579.2. 196 1947 Unknown [id number] 2.16.840.1.644790.3.579.2. 196 1947 Unknown [id number] 2.16.840.1.663219.3.579.2. 196 1947 Unknown [id number] 2.16.840.1.055718.3.579.2. 727 1947 Unknown [id number] 2.16.840.1.964875.3.579.2. 727 1947 Unknown [id number] 2.16.840.1.333200.3.579.2. 727 1947 Unknown [id number] 2..840.1.788224.3.579.2. 727 1947 Unknown [id number] 2..840.1.568583.3.579.2. 727 Private Health Insurance [employer] [facility] M [id number] Unknown Unknown [id number] ..840.1.903005.3.579.2. 531 Social History Date Type Detail Facility Start: 12-03-2015 End: 10-26-2024 Tobacco smoking status NYIS Ex-smoker [facility] End: 12-05-1990 History of tobacco use Current smoker [facility] Start: 12-03-2015 End: 05-15-2020 Cigarettes smoked current (pack per day) - Reported 1 [facility] Start: 12-03-2015 End: 11-26-2023 Tobacco use and exposure Smokeless tobacco non-user [facility] Start: 10-08-2020 End: 11-26-2023 Alcohol intake Current drinker of alcohol (finding) [facility] Start: 1945 Sex Assigned At Not on file [facility] Start: 05-15-2020 End: 05-14-2023 Sex Assigned At [facility] End: 12-05-1990 History of tobacco use Cigarette Smoker [facility] Start: 1945 Sex Assigned At Female [facility] Tobacco smoking status Never [facility] Start: 05-14-2023 Tobacco smoking stat us NYIS Never smoked tobacco [facility] Has the [employer], [employer], or water [employer] threatened to shut off services in your home in past 12Mo No [facility] (I/We) worried whemiky er (my/our) food would run out before (I/we) got money to buy more. Never true [employer] Start: 03-19-2017 End: 06-19-2023 Alcohol Comment social [facility] Start: 07-22-2018 End: 05-09-2024 Sex Female (finding) [facility] Start: 03-31-2022 Tobacco Comment quit in 1989 [facility] Start: 05-09-2018 Gender identity Identifies as female gender (finding) [facility] Sexual Orientation [facility] Medical Equipment Procedure Code Equipment Code Equipment Origin al Text Equipment Identifier Dates Anchors, 5.5 Non Punching - [id number] Start: 07-07-2023 Anchors, 5.5 Non Punching - [id number] Start: 07-07-2023 Functional Status Date Assessment Result Facility 09-19-2024 Functional Status N/A [facility] 06-22-2024 Functional Status N/A [facility] 07-07-2023 Are you deaf, or do you have serious difficulty hearing No 07/07/2023 4:30 PM Marcella Muñoz RN [facility] 07-07-2023 Are you blind, or do you have serious difficulty seeing, even when wearing glasses No 07/07/2023 4:30 PM Marcella Muñoz RN [facility] 07-07-2023 Do you have serious difficulty walking or climbing stairs No 07/07/2023 4:30 PM Marcella Muñoz RN [facility] 07-07-2023 Do you have difficul ty dressing or bathing No 07/07/2023 4:30 PM Marcella Muñoz RN [facility] 07-07-2023 Because of a physica l, mental, or emotional condition, do you have difficulty doing errands alone such as visiting a physician's office or shopping No 07/07/2023 4:30 PM Marcella Muñoz RN [facility] 02-11-2023 Functional Status N/A [facility] Mental Status Date Assessment Result Facility 07-07-2023 Because of a physica l, mental, or emotional condition, do you have serious difficulty concentrating, remembering, or making decisions No 07/07/2023 4:30 PM Marcella Muñoz RN No [facility] Clinical Notes 09-26-2021 to 09-19-2024 Note Date & Type Note Facility 09-19-2024 Evaluation + Plan note Extrac mary from: Title:[facility] HOPD Note Author:Alfreda Miller MD. Date:09/19/24 Impression and Plan Assessment and Plan: Diagnosis: Vaginal atrophy (MUX94-IA N95.2, Discharge, Medical), Recurrent UTI (TFE01-GM N39.0, Discharge, Medical), Mixed incontinence ([id number] N39.46, Discharge, Medical). 79-year-old female with a [...] Extracted from: Title:Preoperative H&P: EU Author:Alfreda Miller MD. Date:09/19/24 Impression and Plan Impression: cystoscopy and botox 100 units for mixed incontinence Plan: Proceed with planned surgery per clinic note, risks/benefits previously discussed and documented Future Appointments Appointment Date:10/26/2024 08:00:00 AM Scheduled Provider:Maria E Osman PA-C Location:[facility] Appointment Type:URO Office Visit [facility] 05-19-2025 Hospital Discharge instructions Follow Up Care 09/19/2024 08:36:00 With:Maria E Osman PA-C, URL Address: When:Within 3 Month(s) Comments:w/ PVR [facility] 05-19-2025 Hospital Discharge instructions Patient Education 09/19/2024 [...] with PVR With:Alfreda Miller Address:Unknown When: Unknown [facility] 05-19-2025 NoteHistory and Physical Patient: BETTIE BURNS [...] 1 month, then 2x a week afterwards, [facility]/pharmacy #[id number], 165, cm, 06/22/24 13:05:00 EST, Height/Length Dosing, 80.7, kg, 06/22/24 13:05:00 EST, Weight Dosing... Keflex 500 mg Cap: 500 mg = 1 cap(s), Oral, q12hr, X 7 day(s), # 14 cap(s), Refills(s) 0, Pharmacy:[facility]/pharmacy #[id number], 165, cm, 06/22/24 13:05:00 EST, [...] Vitamin OTC: Neuveria Vitamin OTC Potassium Chloride (Ykf-Mfos-Zbo 10) 10 mEq oral tablet, extended release: [...] list: All Problems Anticoagulated / SNOMED CT 778249275 / Confirmed Chronic atrial fibrillation / SNOMED CT 9243305271 / Confirmed Eczema / SNOMED CT 58941874 / Confirmed Former smoker / SNOMED CT 65325561 / Confirmed Frequent UTI / SNOMED CT 879260709 / Confirmed History of breast cancer / SNOMED CT 9222251986 / Confirmed History of malignant neoplasm of breast / SNOMED CT 5951418741 / Confirmed Hypertensive disorder / SNOMED CT 7424720470 / Confirmed Microscopic hematuria / SNOMED CT 877068681 / Confirmed Mixed incontinence / SNOMED CT 50204989 / Confirmed Rectocele / SNOMED CT 2714529136 / Confirmed Histories Past Medical History: No active or resolved past medical history items have been selected or recorded. Family History: Entire family history is negative. Procedure history: Cholecystectomy (57100328). Hip replacement (6489960440). Lumpectomy of left breast (3836854530). Rotator cuff (50621205). ROSA - Total abdominal hysterectomy (443081867). Appendectomy (769231378). Cataracts (4886219150). Cardiac ablation system (0094968238). Social History Social & Psychosocial Habits Tobacco [...] per clinic note, risks/benefits previously discussed and documentedKettering Memorial HospitalComment on above:Result Comment: Electronically Signed By: Paul VILLEGAS, Alfreda Palacios\.br\Date and Time Signed: 09/19/24 08:[id number] NoteProgress Note-Physician Patient: BETTIE BURNS Age: 79 [...] 1 month, then 2x a week afterwards, [facility]/pharmacy #[id number], 165, cm, 06/22/24 13:05:00 EST, Height/Length Dosing, 80.7, kg, 06/22/24 13:05:00 EST, Weight Dosing... Keflex 500 mg Cap: 500 mg = 1 cap(s), Oral, q12hr, X 7 day(s), # 14 cap(s), Refills(s) 0, Pharmacy:[facility]/pharmacy #[id number], 165, cm, 06/22/24 13:05:00 EST, Height/Length Dosing, 80.7, kg, 06/22/24 13:05:00 EST, Weight Dosing trospium 60 mg oral capsule, extended release: 60 mg = 1 cap(s), Oral, Bedtime, # 90 tab(s), Refills(s) 3, Pharmacy: [facility], 165, cm, 05/27/23 8:54:00 EST, Height/Length Dosing, 77.5, kg, 05/27/23 8:54:00 EST, Weight Dosing Documented Medications Documented Aleve: Refills(s) 0 BACLOFEN 10 MG TABLET: BACLOFEN 10 MG TABLET Eliquis 5 mg oral tablet: Refills(s) 0 Neuveria Vitamin OTC: Neuveria Vitamin OTC Potassium Chloride (Udb-Tnvr-Uhd 10) 10 mEq oral tablet, extended release: [...] Plan Assessment and Plan: Diagnosis: Vaginal atrophy (IAO84-DA N95.2, Discharge, Medical), Recurrent UTI(MYC83-DV N39.0, Discharge, Medical), Mixed incontinence (UKY57-YU N39.46, Discharge, Medical). 79-year-old female with a [...] up CT scan confirmed passage. Increase fluids recommendedKettering Memorial HospitalComment on above:Result Comment: Electronically Signed By: Paul VILLEGAS, Alfreda Palacios\.br\Date and Time Signed: 09/19/24 08:[id number] Note Patient Education Cystoscopy with Botox injection [...] you have a fever over 100 degrees. ???[facility]04-02-2025 Miscellaneous Notes* Telephone Encounter - Leslie Negron RN - 08/03/2024 12:21 AM EDT Ov-11/26/23 Cmp and mg -07/15/23 New cmp and mg order placed and letter sent 08/04/24 documented in this encounterC[facility]04-02-2025 Telephone encounter Note* Telephone Encounter - Leslie Negron RN - 08/03/2024 12:21 AM EDT Ov-11/26/23 Cmp and mg -07/15/23 New cmp and mg order placed and letter sent 08/04/24 [facility]03-26-2025 Miscellaneous Notes* Telephone Encounter - Sander Pollack RN - 07/27/2024 1:57 PM EDT P/c from pt requesting refills to [facility]. OV 11/26/23 07/14/24 MAG, CMP, CBC EKG 08/12/23 documented in this encounterCleveland Clinic Mary[facility] Hospital03-26-2025 Telephone encounter Note* Telephone Encounter - Sander Pollack RN - 07/27/2024 1:57 PM EDT P/c from pt requesting refills to [facility]. OV 11/26/23 07/14/24 MAG, CMP, CBC EKG 08/12/23 [facility]03-13-2025 History of Present illness Narrative* Svitlana Blake - 07/14/2024 2:00 PM EDT Ortho Nurse - Established Patient Intake Room#: 5 Date: 07/14/2024 1:15 PM Patient: Bettie Burns MR#: [id number] : 1945 Age: 79 y.o. 1yr R [...] LUMPECTOMY FOOT SURGERY HEART CATHETERIZATION no stents VA ENDOMETRIAL CRYOABLATION W/US & ENDOMETRIAL CR REMOVAL [...] x 1 month, then 2x/week for maintainence, [facility]/pharmacy #[id number], 165, cm, 02/11/23 10:41:00 EDT, [...] x 1 month, then 2x/week for maintainence, [facility]/pharmacy #[id number], 165, cm, 02/11/23 10:41:00 EDT, [...] oxycodone, penicillins, and tramadol. * Paula Barrera APRN-IDENTIFICATION AND RECORDS COMMANDER - 07/14/2024 2:00 PM EDT HPI: Patient [...] 07/14/2024 1:15 PM Patient: Bettie Burns MR#: [id number] : 1945 Age: 79 y.o. 1yr R [...] LUMPECTOMY FOOT SURGERY HEART CATHETERIZATION no stents VA ENDOMETRIAL CRYOABLATION W/US & ENDOMETRIAL CR REMOVAL [...] x 1 month, then 2x/week for maintainence, [facility]/pharmacy #[id number], 165, cm, 02/11/23 10:41:00 EDT, Height/Length Dosing, 77.5, kg, 02/11/23 10:41:00 EDT, Weight Dosing Flecainide 50 MG tablet Take 1 tablet by mouth Twice daily. hydroCHLOROthiazide 25 MG tablet Take 1 tablet by mouth daily. Lisinopril 20 MG tablet Take 1 tablet by mouth daily. Multiple Vitamin (multivitamin) capsule Take 1 capsule by mouth daily. NON-FORMULARY Med Name:Neunetta vitamin 1 qd OMEPRAZOLE PO Take 20 [...] x 1 month, then 2x/week for maintainence, [facility]/pharmacy #[id number], 165, cm, 02/11/23 10:41:00 EDT, Height/Length Dosing, [...] oxycodone, penicillins, and tramadol. documented in this [facility]02-27-2025 Miscellaneous Notes* Telephone Encounter - Mami Cifuentes RN - 06/30/2024 12:22 AM EST OV 11/26/2023 documented in this [facility]02-27-2025 Telephone encounter Note* Telephone Encounter - Mami Cifuentes RN - 06/30/2024 12:22 AM EST OV 11/26/2023 [facility]02-19-2025 Hospital Discharge instructions Patient Education 06/22/2024 15:04:23 [...] Follow these instructions at home: Medicines Take ypps-esp-eunjoky and prescription medicines only as told by [...] or the blood stops without treatment. Take qzyk-wui-fcjruvl and prescription medicines only as told by your health care provider. Drink enough fluid to keep your urine pale yellow. This information is not intended to replace advice given to you by your health care provider. Make sure you discuss any questions you have with your health care provider. Document Revised: 12/19/2020 Document Reviewed: 12/19/2020 Next Caller Patient Education 2023 [employer]. 06/22/2024 15:04:17 Overactive Bladder, Adult Overactive Bladder, [...] your health care provider. General instructions Take eppn-wzb-ryivgoa and prescription medicines only as told by [...] provider. Document Revised: 01/07/2021 Document Reviewed: 01/07/2021 Next Caller Patient Education 2023 [employer]. Follow Up Care 06/22/2024 10:24:57 With:Paul VILLEGAS, PERLA Araujo, URO Address: When: Unknown Comments:F/U pending cystoscopy [facility] 02-19-2025 NotePatient Education Obstetrics and Gynecology Overactive [...] health care provider. General instructions ??? Take gkwz-snn-ztzuihz and prescription medicines only as told by [...] you drink, and whe (more content not included)...[facility]12-28-2024 Evaluation note* Diagnosis Onset Date Resolution Status Admit Date Acute bilateral otitis media acute April 30, 2024 9:54am [facility] Work Phone: 1(766) 248-274812-28-2024 Evaluation note* Diagnosis Onset Date Resolution Status Admit Date Acute bilateral otitis media acute April 30, 2024 9:54am Acute otitis media with effusion acute May 09 9:07am Insomnia acute May 09 025 9:07am Reaction, situational, acute , to stress acute May 09 9:07am [facility] Work Phone: 1(395) 958-913408-31-2024 Miscellaneous Notes* Telephone Encounter - Jacinta Neri [...] CM 0.98 CM Comment: METHOD TRACEABLE TO IDUT STANDARD Glucose 65 - 99 mg/dL 120 [...] Low CM documented in this encounterCleveland Clinic Mary[facility] Hospital08-31-2024 Telephone encounter Note* Telephone Encounter - [...] >59 ml/min/1.73sq.m 46 Low 56 Low CM [facility]07-25-2024 History of Present illness Narrative* Hal Amado - 11/26/2023 2:00 PM EDT Ortho Nurse - Established Patient Intake Room#: 3 --- Patient presents today for 4 month follow-up of RTHA. Patient states that pain is 2/10today. Patient states that she is improved especially with PT, but is still limping more than she anticipated. Patient has been doing PT at [facility] and this helps, says next week is her last session. Patient states that she is due for nerve block in SI joint at [facility] who she seesregularly, states that she needs approval from Dr. Ohara on this. Date: 11/26/2023 2:25 PM Patient: Bettie Burns MR#: [id number] : 1945 Age: 78 y.o. Referring Physician: [...] LUMPECTOMY FOOT SURGERY HEART CATHETERIZATION no stents VA ENDOMETRIAL CRYOABLATION W/US & ENDOMETRIAL CR REMOVAL [...] x 1 month, then 2x/week for maintainence, [facility]/pharmacy #[id number], 165, cm, 02/11/23 10:41:00 EDT, [...] x 1 month, then 2x/week for maintainence, [facility]/pharmacy #[id number], 165, cm, 02/11/23 10:41:00 EDT, [...] anticipated. Patient has been doing PT at [facility] and this helps, says next week is her last session. Patient states that she is due for nerve block in SI joint at [facility] who she seesregularly, states that she needs approval from Dr. Ohara on this. Date: 11/26/2023 2:25 PM Patient: Bettie Burns MR#: [id number] : 1945 Age: 78 y.o. Referring Physician: [...] LUMPECTOMY FOOT SURGERY HEART CATHETERIZATION no stents VA ENDOMETRIAL CRYOABLATION W/US & ENDOMETRIAL CR REMOVAL [...] x 1 month, then 2x/week for maintainence, [facility]/pharmacy #[id number], 165, cm, 02/11/23 10:41:00 EDT, [...] x 1 month, then 2x/week for maintainence, [facility]/pharmacy #[id number], 165, cm, 02/11/23 10:41:00 EDT, [...] oxycodone, penicillins, and tramadol. documented in this [facility]07-25-2024 History of Present illness Narrative* [...] Burns was seen in follow-up in the [place] office. Records are reviewed. She is a [...] avoidance. Past Medical History: Diagnosis Date A-fib ([facility]) hx of Arrhythmia 12/2016 ATRIAL FIBRILLATION Arthritis Breast cancer ([facility]) 11/14/2015 LEFT COVID-19 03/2020 History of bleeding ulcers Hypertension Migraines Pneumonia d/t covid Prolonged emergence from general anesthesia Visual impairment glasses No data recorded No data recorded No data recorded Past Surgical History: Procedure Laterality Date ABLATION OF DYSRHYTHMIC FOCUS Right nerve ablation, L4 and L5 Afib ablation with SHANICE - CRYO, Rhythmia, ICE N/A 09/28/2018 Performed by Amber Quiñonez MD at [facility] () ARTHROSCOPY REPAIR ROTATOR CUFF SHOULDER Right 05/16/2020 Performed by Melchor Rivera DO at [facility] ARTHROSCOPY SHOULDER Right 05/16/2020 Performed by Melchor Rivera DO at [facility] BREAST BIOPSY Left 2016 BREAST LUMPECTOMY Left 11/14/2015 WITH RADIATION BREAST SURGERY Left 2013 lumpectomy CATARACT EXTRACTION CHOLECYSTECTOMY COLONOSCOPY Coronary angiogram and left ventricular gram/pressure N/A 08/08/2021 Performed by Bertram Lal MD at [facility] EYE SURGERY lids [...] Other Topics Concern Caffeine Use Yes Comment: 12 cup Social History Narrative Not on file Social Determinants of Health Financial Resource Strain: Not on file Food Insecurity: No Food Insecurity (07/15/2023) Hunger Screening Food Insecurity - Worry: Never True Food Insecurity - Inability: Never True Transportation Needs: No Transportation Needs (07/07/2023) Received from [facility], [facility] - Transportation Lack of Transportation (Medical): No Lack of Transportation (Non-Medical): No Physical Activity: Not on file Stress: Not on file Social Connections: Not on file Interpersonal Safety: Not on file Housing Instability: Low Risk (07/07/2023) Received from [facility], [facility] Housing Stability Vital Sign Unable to [...] MD Referring Physician: Elliot Starks MD [address] [place] [address] documented in this [facility]07-24-2024 Miscellaneous Notes* Telephone Encounter - Medina Jaramillo MA - 11/25/2023 10:56 AM EDT Called patient to remind them to bring their most current copy of their medication list with them to their appt. Patient verbalizes understanding. documented in this encounterC[facility]07-24-2024 Telephone encounter Note* Telephone Encounter - Medina Jaramillo MA - 11/25/2023 10:56 AM EDT Called patient to remind them to bring their most current copy of their medication list with them to their appt. Patient verbalizes understanding. [facility]06-17-2024 Miscellaneous Notes* Telephone Encounter - Jacinta Neri RN - 10/19/2023 9:19 AM EDT Last OV 08/25 CMP 07/25 documented in this encounterCleveland Clinic [facility] Hospital06-17-2024 Telephone encounter Note* Telephone Encounter - Jacinta Neri RN - 10/19/2023 9:19 AM EDT Last OV 08/25 CMP 07/25 [facility]05-16-2024 Telephone encounter Note* Telephone Encounter - Matt Adams RN - 09/17/2023 1:30 PM EDT Order faxed to Torey Julio Pt aware. Matt Adams RN [facility]05-16-2024 Miscellaneous Notes* Telephone Encounter - Matt Adams RN - 09/17/2023 1:30 PM EDT Order faxed to Torey Julio Pt aware. Matt Adams RN * Telephone Encounter - Matt Adams RN - 09/17/2023 10:18 AM EDT Pt called to request yearly Mammogram order I have pended order as previously completed Pt requests to fax to Nori Lema [phone] [facility]/: please review and sign if agreeable Matt Adams RN documented in this encounterBucyrus [facility]05-16-2024 Telephone encounter Note * Telephone Encounter - Matt Adams RN - 09/17/2023 10:18 AM EDT Pt called to request yearly Mammogram order I have pended order as previously completed Pt requests to fax to Nori Lema [phone] [facility]/: please review and sign if agreeable Matt Adams RN [facility]04-18-2024 History of Present illness Narrative* Eva Landryclair [...] she is interested in Physcial Therapy through [facility]. Date: 08/20/2023 2:38 PM Patient: Bettie Burns MR#: [id number] : 1945 Age: 78 y.o. Referring Physician: [...] LUMPECTOMY FOOT SURGERY HEART CATHETERIZATION no stents VA ENDOMETRIAL CRYOABLATION REMOVAL BILIARY DUCT/GALLBLADDER CALCULI/DEBRIS [...] x 1 month, then 2x/week for maintainence, [facility]/pharmacy #[id number], 165, cm, 02/11/23 10:41:00 EDT, [...] she is interested in Physcial Therapy through [facility]. Date: 08/20/2023 2:38 PM Patient: Bettie Burns MR#: [id number] : 1945 Age: 78 y.o. Referring Physician: [...] LUMPECTOMY FOOT SURGERY HEART CATHETERIZATION no stents VA ENDOMETRIAL CRYOABLATION REMOVAL BILIARY DUCT/GALLBLADDER CALCULI/DEBRIS [...] x 1 month, then 2x/week for maintainence, [facility]/pharmacy #[id number], 165, cm, 02/11/23 10:41:00 EDT, Height/Length Dosing, 77.5, kg, 10/11/23 10:41:00 EDT, Weight Dosing Flecainide 50 MG [...] penicillins, and tramadol. documented in this encounterOhiohealth O'[facility]04-08-2024 Miscellaneous Notes* Telephone Encounter - Ray Wills LPN - 08/10/2023 12:45 AM EDT Theresa 08/12/23 Cmp, mg 07/15/23 documented in this encounterC[facility] Clinic [facility]04-08-2024 Telephone encounter Note* Telephone Encounter - Ray Wills LPN - 08/10/2023 12:45 AM EDT Theresa 08/12/23 Cmp, mg 07/15/23 [facility]03-21-2024 History of Present illness Narrative* Eva Abrams [...] 07/23/2023 2:45 PM Patient: Bettie Burns MR#: [id number] : 1945 Age: 78 y.o. Referring Physician: Divine Dougherty Insurance: Payor: MEDICARE [employer] HMO OR PPO / Plan: MEDICARE AET[employer] [...] LUMPECTOMY FOOT SURGERY HEART CATHETERIZATION no stents VA ENDOMETRIAL CRYOABLATION REMOVAL BILIARY DUCT/GALLBLADDER CALCULI/DEBRIS [...] x 1 month, then 2x/week for maintainence, [facility]/pharmacy #[id number], 165, cm, 02/11/23 10:41:00 EDT, [...] 07/23/2023 2:45 PM Patient: Bettie Burns MR#: [id number] : 1945 Age: 78 y.o. Referring Physician: [...] Laterality: Right; Surgeon: Miko Ohara MD; Location: [facility] ONT OR REVISION ARTHROPLASTY HIP BOTH ACETABULAR & FEMORAL COMPONENTS Right 07/07/2023 Laterality: Right; Surgeon: Miko Ohara MD; Location: [facility] ONT OR HIP REPLACEMENT 2021 ABLATION NERVE RADIOFREQUENCY PULSED 09/2018 for a-fib with [facility] APPENDECTOMY BREAST LUMPECTOMY FOOT SURGERY HEART CATHETERIZATION no stents VA ENDOMETRIAL CRYOABLATION REMOVAL BILIARY DUCT/GALLBLADDER CALCULI/DEBRIS [...] x 1 month, then 2x/week for maintainence, [facility]/pharmacy #[id number], 165, cm, 02/11/23 10:41:00 EDT, [...] penicillins, and tramadol. documented in this encounterOhiohealth O'[facility]len[facility]03-15-2024 Miscellaneous Notes* Telephone Encounter - Estela Bueno RN - 07/17/2023 1:28 AM EDT Dose confirmed with patient documented in this encounterC[facility]03-15-2024 Telephone encounter Note* Telephone Encounter - Estela Bueno RN - 07/17/2023 1:28 AM EDT Dose confirmed with patient [facility]03-13-2024 Miscellaneous Notes* Telephone Encounter - Ashia [...] willing. slm documented in this encounterCleveland Clinic [facility]03-13-2024 Telephone encounter Note* Telephone Encounter - [...] and she was willing. slm [facility]03-06-2024 Miscellaneous Notes* Nursing Notes - Dolly [...] 07, 2023 ATTENDING PHYSICIAN: Miko Ohara M.D. 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 PROCEDURE PERFORMED: Unlisted procedure of right hip and pelvis, dual-row suture anchor repair of 100% massive abductor tear of right hip, work equivalent similar to CPT 92044 Periarticular injection of right hip. ANESTHESIA: General. [...] it as a CPT similar to that, 55620. ATTENDING/ASSISTING PARTICIPATION: This operation could not have been safely performed (without compromising the technical results or length of the procedure) without the assistance of a skilled assistant chief engineer. A assistant chief engineer was medically necessary for positioning, retraction and [...] denies additional needs, call light in reach. FAIHT intact flashing green. * Brief Op Note - Paula Barrera APRN-AUSTEN - 07/07/2023 3:28 PM EST POST OPERATIVE/PROCEDURE NOTE Bettie Burns 77 y.o. female [id number] SURGEON Surgeons and Role: * Miko Ohara MD - Primary CHOIR MEMBER MEDINA Richardson ANESTHESIOLOGIST GLASS ETCHER HELPER: Chance Ngo CRNA; PALAK Barrett SURGICAL STAFF Digital Design Engineer: Kisha Karimi, RICARDO; Whit Govea, RN Nurse [...] Implant Name Type Inv. Item Serial No. Electrical Machinist Lot No. LRB No. Used Action ANCHORS, 5.5 NON PUNCHING - [id number] ANCHORS, 5.5 NON PUNCHING HIST ARTHREX [id number] Right 1 Implanted ANCHORS, 5.5 NON PUNCHING - [id number] ANCHORS, 5.5 NON PUNCHING HIST ARTHREX [id number] Right 3 Implanted SPECIMENS ID Type Source Tests Collected by Time Destination A : Right hip incisional fluid (1-2) (Anaerobic & Aerobic) Fluid/Swab - Other SURGICAL WOUND ANAEROBE CULTURE iMko Ohara MD 07/07/2023 9194 B : Right hip fluid (cell count, defferential, & culture) Fluid, Unspecified FLUID, UNSPECIFIEDBODY FLUID CELL COUNT Miko Ohara MD 07/07/2023 1425 C : Right hip suture (1-3) (Anaerobic & Aerobic) Surgical Wound SURGICAL WOUND FUNGUS CULTURE, ACID FAST CULTURE, ANAEROBE CULTURE Miko Ohara MD 07/07/2023 1434 MEDINA Richardson July 07, 2023 3:28 PM * Nursing Notes - Chelsea Bledsoe RN - 07/07/2023 10:52 AM EST Unable to doppler right dorsalis pedis pulse. documented in this encounterOhiohealth O'[facility]03-06-2024 Nurse Note* Nursing Notes - Dolly [...] discharged home with daughter and . [facility]03-[facility] Hospital Discharge instructions* Discharge Instructions* Carmen [...] at all times - Use a leg cupola mechanic to get in and out of bed [...] - 2023 12:01 PM EST Contact Office ([phone]) if: > Any falls or injuries > [...] incision or operative leg. documented in this encounterOhiohealth O'[facility]03-06-2024 History of Present illness Narrative* Carmen [...] LUMPECTOMY FOOT SURGERY HEART CATHETERIZATION no stents VA ENDOMETRIAL CRYOABLATION REMOVAL BILIARY DUCT/GALLBLADDER CALCULI/DEBRIS [...] 0 Equipment Available wheeled walker;elevated toilet seat;shower chair;middle school coach Cognitive Status Examination Orientation Status (Cognition) oriented [...] Supine to Sit, Rehab Eval Level of [place]: Supine/Sit stand-by assist Physical Assist/Nonphysical Assist: Supine/Sit 1 person assist Transfer Skill: Sit to Stand, Rehab Eval Level of [place]: Sit/Stand contact guard Physical Assist/Nonphysical Assist: Sit/Stand 1 person assist Weight-Bearing Restrictions: Sit/Stand toe touch weight-bearing Assistive Device for Transfer: Sit/Stand wheeled walker Upper Body Dressing Level of [place] independent Physical Assist/Nonphysical Assist set-up required Lower Body Dressing Level of [place] maximum assist (25% patients effort) Physical Assist/Nonphysical Assist 1 person assist Assistive Device middle school coach General Therapy Interventions Planned Therapy Interventions (OT Eval) ADL retraining;balance training;transfer training Clinical Impression Co-evaluation/co-treatment performed? Yes, combination of simultaneous billable and individual billable skilled care was necessary due to medical complexity and functional deficits Patient Instruction/Education comments Pt instructed on LB dressing techniques donning underwear and shorts min assist in sitting and standing with training on use of middle school coach to maintain hip precautions Rehab Potential (OT [...] hygiene training Therapist Information License # [id number] 1. Pt will complete LB dressing SBA 2. Pt will complete sponge bathing min assist 3. Pt will complete toileting MOD I 4. Pt will complete hygiene/grooming standing at sink MOD I 5. Pt will complete walk in shower transfer CGA * Mayra Kaur, PT - 07/07/2023 6:38 PM EST 07/07/231752 Time In/Out Time In 1752 Time Out [...] LUMPECTOMY FOOT SURGERY HEART CATHETERIZATION no stents VA ENDOMETRIAL CRYOABLATION REMOVAL BILIARY DUCT/GALLBLADDER CALCULI/DEBRIS [...] Supine to Sit, Rehab Eval Level of [place]: Supine/Sit stand-by assist Physical Assist/Nonphysical Assist: Supine/Sit 1 person assist Transfer Skill: Sit To Stand, Rehab Eval [place] (Sit-Stand Transfers) contact guard Physical Assist/Nonphysical Assist: Sit/Stand 1 person assist Weight-Bearing Restrictions: Sit/Stand toe touch weight-bearing Assistive Device For Transfer: Sit/Stand 2 wheeled walker Gait Skills, PT Eval Level of [place]: Gait contact guard Physical Assist/Nonphysical Assist: Gait [...] educated on hip precautions, use of leg cupola mechanic and weight bearing status. Pteducated to only [...] be independent with HEP per protocol. * PaulaMEDINA Rhodes - 07/07/2023 3:28 PM EST THIS PATIENT HAS HAD ORTHOPEDIC SURGERY AND IS EXPECTED TO HAVE PAIN REQUIRING NARCOTICS FOR >7 DAYS AND MAY NEED UP TO 12 tabs of oxycodone PER DAY AND THEREFORE 30tabs ARE BEING DISPENSED IN ACCORDANCE WITH POC DISCUSSED WITH DR OHARA. documented in this [facility]03-06-2024 Hospital course Narrative* Chance Mahoney [...] mouth every 12 hours. Commonly known as: ABBE What changed: Another medication with the same [...] x 1 month, then 2x/[facility]ence[facility] [id number], 165, cm, 02/11/23 10:41:00 EDT, [...] Dept Phone 07/23/2023 2:30 PM Divine Dougherty [facility] [phone] documented in this encounterOhiohealth O'[facility]03-06-2024 Surgery Postoperative evaluation and management note* Op Note - Miko Ohara MD - 2023 5:54 AM EST DATE OF PROCEDURE: July 07, 2023 ATTENDING PHYSICIAN: Miko Ohara M.D. 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 PROCEDURE PERFORMED: Unlisted procedure of right hip and pelvis, dual-row suture anchor repair of 100% massive abductor tear of right hip, work equivalent similar to CPT 77346 Periarticular injection of right hip. ANESTHESIA: General. [...] it as a CPT similar to that, 40417. ATTENDING/ASSISTING PARTICIPATION: This operation could not have been safely performed (without compromising the technical results or length of the procedure) without the assistance of a skilled assistant chief engineer. A assistant chief engineer was medically necessary for positioning, retraction and instrume ntation. [facility]03-06-2024 Nurse Note* Nursing Notes - Aidee Field RN - 2023 4:10 AM EST Assessment remains unchanged from previous. Neuro checks WN, abductor pillow in place. Call light within reach. [facility]03-06-2024 Nurse Note* Nursing Notes - Aidee Field RN - 2023 12:05 AM EST Assessment remains unchanged from previous. Neuro checks WNL, abductor pillow in place. Denies futher needs, call light within reach. [facility]03-05-2024 Consult note* Chance Mahoney MD - 07/07/2023 [...] LUMPECTOMY FOOT SURGERY HEART CATHETERIZATION no stents VA ENDOMETRIAL CRYOABLATION REMOVAL BILIARY DUCT/GALLBLADDER CALCULI/DEBRIS [...] in the morning GI prophylaxis. [facility]03-05-2024 Consult note* Chance Mahoney MD - [...] LUMPECTOMY FOOT SURGERY HEART CATHETERIZATION no stents VA ENDOMETRIAL CRYOABLATION REMOVAL BILIARY DUCT/GALLBLADDER CALCULI/DEBRIS [...] morning GI prophylaxis. documented in this encounterOhiohealth O'Bleness [facility]03-05-2024 Nurse Note* Nursing Notes - Marcella Lozano RN - 07/07/2023 4:10 PM EST Arrived to room [facility] from PACU. Bedside report received from RICARDO Jacobo. Oriented to room and provided call light. Admission assessment, head to toe and post op vitals initiated. Fresh ice water and crackers provided. Family members accompanying patient, denies additional needs, call light in reach. FAITH intact flashing green. [facility]03-05-[facility]24 Nurse Note* Sara Garcia RN - 07/07/2023 4:00 PM EST Patient transferred to [facility] via cart in stable condition. [...] score of: 2 documented in this encounterOhiohealth O'Bleness Hospital03-05-2024 Nurse Surgical operation note* Sara Garcia RN - 07/07/2023 4:00 PM EST Patient transferred to [facility] via cart in stable condition. Report given to RICARDO Kim. Cart left in locked and lowest position with side rails up x2. Snack and call light given to patient. Monitorsand alarms on and attached to patient. [facility]03-05-2024 Nurse Surgical operation note* Edison Perez RN - 07/07/2023 3:30 PM EST Patient transported to PACU with Damián TILLEY. Reports given to Sara SILVA at 1530H. [facility]03-05-2024 Surgery Postoperative evaluation and management note* Brief Op Note - MEDINA Richardson - 07/07/2023 3:28 PM EST POST OPERATIVE/PROCEDURE NOTE Bettie Burns 77 y.o. female [id number] SURGEON Surgeons and Role: * Miko Ohara MD - Primary CHOIR MEMBER MEDINA Richardson ANESTHESIOLOGIST GLASS ETCHER HELPER: Chance Ngo CRNA; PALAK Barrett SURGICAL STAFF Digital Design Engineer: Kisha Karimi RN; Whit Govea RN Nurse [...] Implant Name Type Inv. Item Serial No. Electrical Machinist Lot No. LRB No. Used Action ANCHORS, 5.5 NON PUNCHING - [id number] ANCHORS, 5.5 NON PUNCHING HIST ARTHREX [id number] Right 1 Implanted ANCHORS, 5.5 NON PUNCHING - [id number] ANCHORS, 5.5 NON PUNCHING HIST ARTHREX [id number] Right 3 Implanted SPECIMENS ID Type Source [...] Miko Ohara MD 07/07/2023 1434 Paula Barrera APRN-IDENTIFICATION AND RECORDS COMMANDER July 07, 2023 3:28 PM [facility] [employer]03-05-2024 Nurse Surgical operation note* Whit Govea RN - 07/07/2023 2:04 PM EST OR 3 room temp: 65.1F Humidity: 44% Fire score of: 2 [facility]03-05-2024 Nurse Note* Nursing Notes - Chelsea Bledsoe RN - 07/07/2023 10:52 AM EST Unable to doppler right dorsalis pedis pulse. [facility] [employer]02-16-2024 Miscellaneous Notes* Telephone Encounter - Jacqueline Sparrow [...] Ohara office. documented in this encounterC[facility]-16-[facility] Telephone encounter Note* Telephone Encounter - [...] on risk, holding Eliquis and Celebrex question. [employer]02-16-2024 Telephone encounter Note* Telephone Encounter - Donna Diaz MD - 06/19/2023 12:01 PM EST Okay to proceed with surgery at moderate risk Can use Celebrex Hold Eliquis for 2 days resume after surgery [employer] Work Phone: [phone]) 567-379702-16-2024 Telephone encounter Note* Telephone Encounter - Jacqueline Sparrow RN - 06/19/2023 12:01 PM EST Clearance note faxed back to Dr Ohara office. [employer]02-15-2024 History of Present illness Narrative* Eva Abrams [...] year ago with Dr. Denver Hughes in [place]. Pt states she is looking for a second opinion due to having issues from this past surgery. Date: 06/18/2023 2:32 PM Patient: Bettie Burns MR#: [id number] : 1945 Age: 77 y.o. Referring Physician: [...] tendons as discussed in detail above. 3. [id number] amount of fluid along the lateral aspect [...] scheduling an appointment for [facility] and the potential surgical date, and reviewing [...] Insecurity: No Food Insecurity (06/02/2023) [facility] Hunger Screening Within the past 12 [...] Morphine Oxycodone Penicillins Tramadol documented in this [facility]01-30-2024 History of Present illness Narrative* [...] issues. Past Medical History: Diagnosis Date A-fib ([facility]) hx of Arrhythmia 12/2016 ATRIAL FIBRILLATION Arthritis Breast cancer ([facility]) 11/14/2015 LEFT COVID-19 03/2020 History of bleeding ulcers Hypertension Migraines Pneumonia d/t covid Prolonged emergence from general anesthesia Visual impairment glasses No data recorded No data recorded No data recorded Past Surgical History: Procedure Laterality Date ABLATION OF DYSRHYTHMIC FOCUS Right nerve ablation, L4 and L5 Afib ablation with SHANICE - CRYO, Rhythmia, ICE N/A 09/28/2018 Performed by Amber Quiñonez MD at [facility] (EP) ARTHROSCOPY REPAIR ROTATOR CUFF SHOULDER Right 05/16/2020 Performed by Melchor Rivera DO at [facility] ARTHROSCOPY SHOULDER Right 05/16/2020 Performed by Melchor Rivera DO at [facility] BREAST BIOPSY Left 2016 BREAST LUMPECTOMY Left 11/14/2015 WITH RADIATION BREAST SURGERY Left 2013 lumpectomy CATARACT EXTRACTION CHOLECYSTECTOMY COLONOSCOPY Coronary angiogram and left ventricular gram/pressure N/A 08/08/2021 Performed by Bertram Lal MD at [facility] EYE SURGERY lids [...] MD Referring Physician: Elliot Starks MD [address] [place] [address] documented in this encounterCleveland Clinic [facility]01-11-2024 History of Present illness Narrative* Divine Boudreaux - 05/14/2023 9:30 AM EST Ortho Nurse - Patient Intake Room#: 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 Referring Physician: Self, Self Insurance: Payor: MEDICARE AETNA HMO OR PPO / Plan: MEDICARE [employer] PPO / Product Type: *No Product type* [...] [x]cane, []bracing Are you followed by a sweeper cleaner industrial? [x] [] Name: Dr. Waleska Zhu - [facility] Are you followed by pain management? [x] [] Name: Dr. Cedeno - Pain Mgmt @ [facility] Are you followed by any other specialists? [x] [] Name: Oncolgist - Dr. Choi [facility] Urologist - Dr. Christian Bourne Outpatient [...] abductor muscles as well as ESR/CRP and Croton and Chromium labs today. I will see [...] Oxycodone Penicillins Tramadol documented in this encounterOhiohealth O'[facility]11-27-2023 Evaluation note* Encounter Date Diagnosis Assessment [...] verbalizes understanding and agrees with tx plan. [employer] Other 10-11-2023 Hospital Discharge instructions Patient Education [...] provider. Document Revised: 08/29/2021 Document Reviewed: 08/29/2021 Next Caller Patient Education 2022 [employer]. Follow Up Care 11/06/2022 15:31:52 With:Paul VILLEGAS, Alfreda Palacios URBranden, URO Address: When:Within 3 Month(s) [facility] Angie 07-17-2023 Evaluation note* Encounter Date Diagnosis Assessment Notes Treatment Notes Treatment Clinical Notes Nov, Dysuria (ICD-10 - R30.0) [employer] Other 06-29-2023 Evaluation note* Encounter Date Diagnosis Assessment Notes Treatment Notes Treatment Clinical Notes Oct, Frequent UTI (ICD-10 - N39.0) Pt requests Urology referral. Discussed also getting CT to move along process. Oct, Dyshidrotic eczema (ICD-10 - L30.1) Will treat with steroid cream prn [employer] Other 06-26-2023 Evaluation note* Encounter Date Diagnosis Assessment Notes Treatment Notes Treatment Clinical Notes Oct, Dysuria (ICD-10 - R30.0) [employer] Other 05-11-2023 Miscellaneous Notes* Telephone Encounter - Matt Adams RN - 09/11/2022 11:43 AM EDT Order faxed to [facility] and pt is aware. Matt Adams RN * Telephone Encounter - Matt Adams RN - 09/11/2022 9:51 AM EDT Pt called to request yearly Mammogram order I have pended order as previously completed Pt requests to fax to Nori Lema [phone] BRM/HM: please review and sign if agreeable Matt Adams RN documented in this encounterBucyrus [facility]04-10-2023 Evaluation note* Encounter Date Diagnosis Assessment Notes Treatment Notes Treatment Clinical Notes Aug, Dysuria (ICD-10 - R30.0) [employer] Other 03-16-2023 Evaluation note* Encounter Date Diagnosis [...] N32.81) chronic and improved on present med [employer] Other 02-20-2023 Evaluation note* Encounter Date Diagnosis Assessment Notes Treatment Notes Treatment Clinical Notes Jun, Dysuria (ICD-10 - R30.0) [employer] Other 02-03-2023 Evaluation note* Encounter Date Diagnosis Assessment Notes Treatment Notes Treatment Clinical Notes Jun, OAB (overactive bladder) (ICD-10 - N32.81) [employer] Other 02-01-2023 Evaluation note* Encounter Date Diagnosis Assessment Notes Treatment Notes Treatment Clinical Notes Jun, OAB (overactive bladder) (ICD-10 - N32.81) Patient request to try new medication reviewed side effect profile. Patient declines urology or CHILD CARE GIVER referral at this time. Jun, Essential hypertension (ICD-10 - I10) reviewed and updated medications she will follow-up with cardiology in Jun, Hypokalemia (ICD-10 - E87.6) Reviewed and updated medications. Discussed foods that are high in potassium Jun, Right lumbar pain (ICD-10 - M54.50) Follow-up with Dr. Rivera as scheduled in June. She does have limping with her gait. [employer] Other 05-26-2022 Miscellaneous Notes* Telephone Encounter - Andrew Choi MD - 09/26/2021 5:13 PM EDT Okay to change to screening mammogram. Order signed. ASIYA Ford * Telephone Encounter - Mikaela Thompson RN - 09/26/2021 2:33 PM EDT Pt scheduled for diagnostic mamm tomorrow @ [facility]. Hospital calls to ask if this could be changed to a screening mammogram since the pt is greater than 2 years from diagnosis? Mikaela Thompson RN documented in this encounterBucyrus Community HospitalEvaluation + Plan note Future Appointments Appointment Date:05/27/2023 08:45:00 AM Scheduled Provider:Paul VILLEGAS, Alfreda Palacios Location:[facility] Appointment Type:URO Office Visit [facility] evaluation + Plan note Future Appointments Appointment Date:07/22/2024 10:30:00 AM Scheduled Provider: Location:[facility] Appointment Type:Urology CALL PAT FT Appointment Date:07/25/2024 08:15:00 AM Scheduled Provider: Location:[facility] Appointment Type:Urology FT [facility] evaluation + Plan note Future Appointments Appointment Date:07/22/2024 10:30:00 AM Scheduled Provider: Location:[facility] Appointment Type:Urology CALL PAT FT Appointment Date:07/25/2024 08:15:00 AM Scheduled Provider: Location:[facility] Appointment Type:Urology FT Diagnostic Tests Pending * Urine Culture 06/22/24 [facility] Evaluation + Plan note Future Appointments Appointment Date:09/16/2024 11:30:00 AM Scheduled Provider: Location:[facility] Appointment Type:Urology CALL PAT FT Appointment Date:09/19/2024 08:00:00 AM Scheduled Provider: Location:[facility] Appointment Type:Urology FT [facility] evaluation + Plan note Future Appointments Appointment Date:01/25/2025 08:00:00 AM Scheduled Provider:Maria E Osman PA-C Location:[facility] Angie Appointment Type:URO Office Visit [facility] evalnxjqvi note* Diagnosis Encounter for screening mammogram for malignant neoplasm of breast- Primary Other screening mammogram documented in this encounter [facility] note* Diagnosis Malignant neoplasm of upper-outer quadrant of left breast in female, estrogen receptor positive (HCC)- Primary documented in this encounter [facility] noteNo [employer] Other Evaluation note* Diagnosis Encounter for screening mammogram for malignant neoplasm of breast- Primary Other screening mammogram documented in this encounter [facility] noteNo assessment information [facility] Work Phone: Evaluation note* Diagnosis Pain in prosthetic joint, initial encounter- Primary Primary osteoarthritis of right hip Primary localized osteoarthrosis, pelvic region and thigh [facility] Diagnosis Right hip pain- Primary Pain in joint, pelvic region and thigh Pre-op testing- Primary Preoperative examination, unspecified Essential (primary) hypertension Unspecified essential hypertension Abnormal finding of blood chemistry, unspecified Abnormal coagulation profile Tear of rotator cuff of right hip, initial encounter 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, initial encounter documented in this encounter [facility]* Diagnosis Status post revision of total hip- Primary Hip joint replacement by other means Pre-op testing Preoperative examination, unspecified Tear of rotator cuff of right hip, initial encounter 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, initial encounter Acute postoperative pain of right hip documented in this encounter [facility]* Diagnosis Tear of gluteus minimus tendon, right, initial encounter- Primary documented in this encounter [facility]* Diagnosis Right hip pain- Primary Pain in joint, pelvic region and thigh documented in this encounter [facility]* Diagnosis Onset Date Resolution Status Dysuria noneactive [facility] Work Phone: Evaluation note* Diagnosis Hx of total hip arthroplasty, right- Primary [facility] Diagnosis Paroxysmal atrial fibrillation (CMS-HCC)- Primary Atrial fibrillation Primary hypertension Unspecified essential hypertension Chronic coronary artery disease Coronary atherosclerosis of unspecified type of vessel, cachil dehe or graft documented [facility] this encounter [facility]* Diagnosis Paroxysmal atrial fibrillation (CMS-HCC)- Primary Atrial fibrillation Unstable angina (CMS-HCC) Intermediate coronary syndrome SOB (shortness of breath) Shortness of breath documented [facility] this encounter [facility]* Diagnosis Hx of total hip arthroplasty, right- Primary documented in this encounter [facility]* Diagnosis Paroxysmal atrial fibrillation (CMS-HCC) Atrial fibrillation [facility]* Diagnosis Paroxysmal atrial fibrillation (CMS-HCC) Atrial fibrillation [facility]* Diagnosis Primary hypertension- Primary Unspecified essential hypertension Coronary artery disease involving cachil dehe coronary artery of cachil dehe heart with unstable angina pectoris (CMS-HCC) documented [facility] this encounter [facility]* Diagnosis Paroxysmal atrial fibrillation (CMS-HCC)- Primary Atrial fibrillation Benign hypertension Essential hypertension, benign [facility] Narrative - Reported* Type [...] replacement 12/16/2021 Hospitalization History SEE SURGICAL HX [employer] Other Hospital course Narrative No data available for this section [facility] Discharge instructions* Attachments The following attachments cannot be sent through Care Everywhere. * [facility] AMB SMOKING CESSATION LINKS documented in this encounterOhiohealth O'[facility]len[facility] HospitalHospital Discharge instructions No data available for this section [facility] InstructionsNot on filedocumented in this [...] available for this section [facility] (narrative)* Diagnostic Procedure Only (Routine) - Pending Review Specialty Diagnoses / Procedures Referred By Juan wren Referred To Contact [facility] Diagnoses Encounter for screening mammogram for malignant neoplasm of breast Procedures SHANE SCREENING W YAW SCREENING DIGITAL BREAST TOMOSYNTHESIS BI SCREENING MAMMOGRAPHY BI 2-VIEW BREAST INC Andrew Miguel MD [facility] [place] [address] [facility] [id number] [place] [address] Referral ID Status Reason Start Date Expiration Date Visits Requested Visits Authorized [id number] Pending Review Auto-Generat ed Referral 09/26/2021 10/26/2022 [address] [facility] for referral (narrative)* Diagnostic Procedure Only (Routine) - Pending Review Specialty Diagnoses / Procedures Referred By Juan wren Referred To Contact [facility] Diagnoses Encounter for screening mammogram for malignant neoplasm of breast Procedures SHANE SCREENING W YAW SCREENING DIGITAL BREAST TOMOSYNTHESIS BI SCREENING MAMMOGRAPHY BI 2-VIEW BREAST INC Andrew Miguel MD [facility] [place] [address] [facility] [address] [place] [address] Referral ID Status Reason Start Date Expiration Date Visits Requested Visits Authorized [id number] Pending Review Auto-Generat ed Referral 09/11/2022 10/11/2023 [address] [facility] for referral (narrative)* (Routine) Specialty Diagnoses / Procedures Referred By Russac t Referred To Contact [facility] [address] [place] [id number] Referral ID Status Reason Start Date Expiration Date Visits Re quested Visits Authorized [facility] for referral (narrative)* Consultation (Routine) - Patient to Arrange Specialty Diagnoses / Procedures Referred By Contac t Referred To Contact Physical Therapy Diagnoses Right hip pain Divine Dougherty [address] [place] [address] Referral ID Status Reason Start Date Expiration Date V isits Requested Visits Authorized [id number] Patient to Arrange 08/20/2023 09/13/2024 1 1 Scheduling Instructions . * Diagnostic X-Ray (Routine) - New Request Specialty Diagnoses / Procedures Referred By Contac t Referred To Contact Diagnoses Right hip pain Procedures XR HIP WITH PELVIS RIGHT Divine Dougherty [address] [place] [address] Referral ID Status Reason Start Date Expiration Date V isits Requested Visits Authorized [id number] New Request 08/20/2023 09/13/[address] [facility] for referral (narrative)* Diagnostic Procedure Only (Routine) - Pending Review Specialty Diagnoses / Procedures Referred By Contac t Referred To Contact [facility] Diagnoses Encounter for screening mammogram for malignant neoplasm of breast Procedures SHANE SCREENING W YAW SCREENING DIGITAL BREAST TOMOSYNTHESIS BI SCREENING MAMMOGRAPHY BI 2-VIEW BREAST INC Andrew Miguel MD [address] [place] [address] [place] [address] Br Imaging [address] [place] [address] [place] [address] Referral ID Status Reason Start Date Expiration Date Visits Requested Visits Authorized [id number] Pending Review Auto-Generat ed Referral 09/17/2023 10/16/2024 [address] [facility] for visit Narrative* Diagnostic X-Ray (Routine) - New Request Specialty Diagnoses / Procedures Referred By Juan t Referred To Contact Diagnoses Hx of total hip arthroplasty, right Procedures XR HIP WITH PELVIS RIGHT Paula Barrera, COMPOUNDER-IDENTIFICATION AND RECORDS COMMANDER [address] [place] [address] Phone: tel: fax: Referral ID Status Reason Start Date Expiration Date V isits Requested Visits Authorized [id number] New Request 07/12/2024 08/06/2025 1 1 [employer] Sina Sparrow [facility] Summary Purpose Family History No Family History Records Found Relationship Condition Age at Onset Recorded Date/T nilam father Unknown mother Unknown Advance Directives No Advanced Directives Records FoundDocuments on File Type Date Recorded Patient Imaging Technician Expl anation Advance Directives/Living Will 06/25/2023 9:17 AM DURABLE POWER OF AUDIT MGR FOR HEALTHCARE 06/25/23 Advance Directives/Living Will 06/25/2023 [...] Documents on File Type Date Recorded Patient Imaging Technician Expl anation Living Will 05/21/2020 9:37 AM Durable Power of Support Representative 05/21/2020 9:27 AM Durable Power of Support Representative 05/16/2020 6:05 AM Living Will 05/16/2020 6:04 AM Healthcare Agents on File Name Relationship Healthcare Agent Relationshi p Communication David Carlosey Spouse Health Care Agent Samantha Inman Daughter First [facility] Ca re Agent Healthcare Agents on File [...] WITH PELVIS RIGHT Miko Ohara MD [address] [place] [address] Referral ID Status Reason Start Date Expiration Date V isits Requested Visits Authorized [id number] New Request 11/16/2023 12/10/2024 1 1 Specialty Diagnoses / Procedures Referred By Contac t Referred To Contact Diagnoses Tear of gluteus minimus tendon, right, initial encounter Procedures XR HIP WITH PELVIS RIGHT Divine Dougherty [address] [place] [address] Referral ID Status Reason Start Date Expiration Date V isits Requested Visits Authorized [id number] New Request 07/20/2023 08/13/2024 1 1 Specialty Diagnoses / Procedures Referred By Contac t Referred To Contact Diagnoses Pain in prosthetic joint, initial encounter Procedures MRI HIP RIGHT WITHOUT CONTRAST VA MRI LOWER EXTREM JT, W/O CONTRAST Miko Ohara MD [address] [place] [id number] Referral ID Status Reason Start Date Expiration Date V isits Requested Visits Authorized [id number] New Request 05/14/2023 06/07/2024 1 1 Specialty Diagnoses / Procedures Referred By Contac t Referred To Contact Diagnoses Pain in prosthetic joint, initial encounter Procedures COBALT AND CHROMIUM,WB Miko Ohara MD [address] [place] [id number] Referral ID Status Reason Start Date Expiration Date V isits Requested Visits Authorized [id number] New Request 05/14/2023 06/07/2024 1 1 Specialty Diagnoses / Procedures Referred By Contac t Referred To Contact Diagnoses Primary osteoarthritis of right hip Procedures XR HIP WITH PELVIS RIGHT Miko Ohara MD [address] [place] [id number] Referral ID Status Reason Start Date Expiration Date V isits Requested Visits Authorized [id number] New Request 05/06/2023 05/30/2024 1 1 Reason *FU 11/12 Angie office Diagnosis 1 Frequent UTI (N39.0) Referral Organization [facility] tam Referring Provider First Name Elliot Referring Provider Last Name Raudel Referring Provider Specialty Family [facility] Referred Organization [facility] Referred Provider ALFREDA MILLER Referred Address [address] [facility] [address],[place], [place],[address] Referred Provider Specialty Urology Referral Priority Routine [...] section and content) DATE CREATED AUTHOR 10/28/2017 [facility] DATE CREATED AUTHOR AUTHOR'S ORGANIZ ATION 03/21/2020 [facility] DATE CREATED AUTHOR AUTHOR'S ORGANIZ ATION 09/13/2021 [facility] dical Specialist DATE CREATED AUTHOR AUTHOR'S ORGANIZ ATION 06/11/2022 [facility] DATE CREATED AUTHOR AUTHOR'S ORGANIZ ATION 11/18/2022 [facility] DATE CREATED AUTHOR AUTHOR'S ORGANIZ ATION 05/20/2023 [facility] DATE CREATED AUTHOR AUTHOR'S ORGANIZ ATION 09/19/2023 [facility] DATE CREATED AUTHOR AUTHOR'S ORGANIZ ATION 10/01/2023 [facility] DATE CREATED AUTHOR AUTHOR'S ORGANIZ ATION 06/24/2024 [facility] DATE CREATED AUTHOR AUTHOR'S ORGANIZ ATION 06/26/2024 [facility] DATE CREATED AUTHOR AUTHOR'S ORGANIZ ATION 07/17/2024 [facility] DATE CREATED AUTHOR AUTHOR'S ORGANIZ ATION 08/31/2024 [facility] DATE CREATED AUTHOR AUTHOR'S ORGANIZ ATION 09/13/2024 [facility] DATE CREATED AUTHOR AUTHOR'S ORGANIZ ATION 09/18/2024 [facility] DATE CREATED AUTHOR AUTHOR'S ORGANIZ ATION 10/28/2024 [facility] Source Comments (unrecognize d section and content) In the event this informatio n is protected by the Federal Confidentiality of Alcohol and Drug Abuse Patient Records regulations: The Federal rules restrict any use of the information to criminally investigate or prosecute any alcohol or drug abuse patient.[facility] the event this information is protected by the Federal Confidentiality of Alcohol and Drug Abuse Patient Records regulations: The Federal rules restrict any use of the information to criminally investigate or prosecute any alcohol or drug abuse patient.[facility] the event this information is protected by the Federal Confidentiality of Alcohol and Drug Abuse Patient Records regulations: The Federal rules restrict any use of the information to criminally investigate or prosecute any alcohol or drug abuse patient.[facility] the event this information is protected by the Federal Confidentiality of Alcohol and Drug Abuse Patient Records regulations: The Federal rules restrict any use of the information to criminally investigate or prosecute any alcohol or drug abuse patient.[facility] Reason for Visit (unrecogniz ed section and content) Reason Comments Radiology Mammogram Reason Comments Lab Orders Reason Comments Orders Specialty Diagnoses / Procedures Referred By Juan wren Referred To Contact Diagnoses Primary osteoarthritis of right hip Procedures XR HIP WITH PELVIS RIGHT Miko Ohara MD [address] [place] [id number] Referral ID Status Reason Start Date Expiration Date V isits Requested Visits Authorized [id number] New Request 05/06/2023 05/30/2024 1 1 Reason [...] right hip prosthesis, initial encounter [T84.090A] Procedures VA PELVIS/HIP JOINT SURGERY UNLISTED VA REVISE TOTAL HIP REPLACEMENT GLUTEUS MEDIUS TENDON REPAIR REVISION ARTHROPLASTY HIP BOTH ACETABULAR & FEMORAL COMPONENTS Miko Ohara MD [address] [place] [address] Referral ID Status Reason Start Date Expiration Date Visits Re quested Visits Authorized [id number] 06/19/2023 1 1 Reason Comments Post Op Visit Specialty Diagnoses / Procedures Referred By Juan wren Referred To Contact Diagnoses Tear of gluteus minimus tendon, right, initial encounter Procedures XR HIP WITH PELVIS RIGHT Divine Dougherty [address] [place] [id number] Referral ID Status Reason Start Date Expiration Date V isits Requested Visits Authorized [id number] New Request 07/20/2023 08/13/2024 1 1 Reason Comments Follow-up Specialty Diagnoses / Procedures Referred By Juan wren Referred To Contact Diagnoses Right hip pain Procedures XR HIP WITH PELVIS RIGHT Divine Dougherty [address] [place] [phone] Referral ID Status Reason Start Date Expiration Date V isits Requested Visits Authorized [id number] New Request 08/20/2023 09/13/2024 1 1 Reason Comments Yearly Exam With Mammogram Reason Comments Pain Specialty Diagnoses / Procedures Referred By Juan wren Referred To Contact Diagnoses Hx of total hip arthroplasty, right Procedures XR HIP WITH PELVIS RIGHT Miko Ohara MD [address] [facility] [place] [address] Referral ID Status Reason Start Date Expiration Date V isits Requested Visits Authorized [id number] New Request 11/16/2023 12/10/2024 1 1 Reason [...] Care Teams (unrecognized sec tion and content) Moccasin Sewer Relationship Specialty Start Date End Date Elliot Starks MD [address] [place] [phone] PCP - General Family Practice 11/26/15 Moccasin Sewer Relationship Specialty Start Date End Date Elliot Starks MD [address] [place] [address] PCP - General Family Practice 11/26/15 Moccasin Sewer Relationship Specialty Start Date End Date Elliot Starks MD [address] [place] [address] PCP - General Family Medicine 11/26/15 Team Status: Inactive Member Role Status Dates Elliot Starks MD Attending Provider Active Moccasin Sewer Relationship Specialty Start Date End Date Elliot Starks MD [address] [place] [address] PCP - General Family Medicine 05/11/23 Moccasin Sewer Relationship Specialty Start Date End Date Elliot Starks MD [address] [place] [address] [place] [address] PCP - General Family Medicine 05/11/23 Moccasin Sewer Relationship Specialty Start Date End Date Elliot Starks MD [address] [place] [address] [place] [address] PCP - General Family Medicine 05/11/23 Moccasin Sewer Relationship Specialty Start Date End Date Elliot Starks MD [address] [place] [address] [place] [address] PCP - General Family Medicine 05/11/23 Moccasin Sewer Relationship Specialty Start Date End Date Elliot Starks MD [address] [place] [address] [place] [address] PCP - General Family Medicine 05/11/23 Moccasin Sewer Relationship Specialty Start Date End Date Elliot Starks MD [address] [place] [address] [place] [address] PCP - General Family Medicine 05/11/23 Moccasin Sewer Relationship Specialty Start Date End Date Elliot Starks MD [address] [place] [address] [place] [address] PCP - General Family Medicine 05/11/23 Moccasin Sewer Relationship Specialty Start Date End Date Elliot Starks MD [address] [place] [address] [place] [address] PCP - General Family Medicine 05/11/23 Moccasin Sewer Relationship Specialty Start Date End Date Elliot Starks MD [address] [place] [phone] PCP - General Family Medicine 11/26/15 Team [...] May 09, 2024 End: May 09, 2024 Moccasin Sewer Relationship Specialty [place] [address] [place] [phone] PCP - General 03/17/17 Moccasin Sewer Relationship Specialty [place] [address] [place] [address] PCP - General 07/15/23 Moccasin Sewer Relationship Specialty [place] [address] [place] [address] PCP - General 03/17/17 Moccasin Sewer Relationship Specialty [place] [address] [place] [address] PCP - General 03/17/17 Moccasin Sewer Relationship Specialty [place] [address] [place] [address] PCP - General 07/15/23 Moccasin Sewer Relationship Specialty Start Date End Date Elliot Starks MD [address] [place] [id number] PCP - General 07/15/23 Moccasin Sewer Relationship Specialty Start Date End Date Elliot Starks MD [address] [place] [address] PCP - General 07/15/23 Team Status: Active Member Role Status Dates Elliot Starks MD Primary Care Provide r, Attending Provider Active Start: May 11, 2024 Team Status: Inactive Member Role Status Dates Elliot Starks MD Primary Care Provider Active Start: June 21, 2024 End: June 21, 2024 Chinedu Farley DO Attending Provider Active Sta rt: June 21, 2024 End: June 21, 2024 Moccasin Sewer Relationship Specialty Start Date End Date Elliot Starks MD [address] [place] [address] PCP - General Family Medicine 05/11/23 Moccasin Sewer Relationship Specialty Start Date End Date Elliot Starks MD [address] [place] [address] PCP - General Family Medicine 05/11/23 Moccasin Sewer Relationship Specialty Start Date End Date Elliot Starks MD [address] [place] [address], [place] [address] PCP - General 07/15/23 Moccasin Sewer Relationship Specialty Start Date End Date Elliot Starks MD [address] [place] [address] PCP - General 07/15/23 Moccasin Sewer Relationship Specialty Start Date End Date Elliot Starks MD [address] [place] [phone] PCP - General 07/15/23 Goals (unrecognized section [...] dose on Thu07/08/23 at 0900, Until Discontinued 0904 (Given - Provid er: Dolly Liao [...] op, Post-op/Post-Proc 1511 (Given - Provid er: oDlly Liao RN) Docusate (COLACE) capsule 100 mg [...] RN)1514 ($$New Bag$$ - Provider: Damián Saenz APRN-GLASS ETCHER HELPER)1647 (Stopped - Provider: Aidee Field RN) Sodium [...] 2 g, Intravenous, Administer over 15 Minutes, TRIAL MGR TO PROCEDURE, 1 dose, Starting on Thu07/07/23 at 1003, Until Thu07/07/23 at 1409, Other, Pre-operative antibiotic, Pre-op/Pre-Proc 1354 (Given - Provider: Melchor Holcomb, [facility]) HYDROmorphone (DILAUDID) injection 0.5 mg 0.5 [...] BE BASED ON THE PRIMARY CLINICAL RECORDS. [employer] provides no warranty or guarantee of the accuracy or completeness of information in this document.
[2024-10-31 06:58] VITALS: BP 128/65; PULSE 52; TEMP 36.1; O2SAT 96
[2024-10-31 08:00] VITALS: PULSE 55; PULSE 58; O2SAT 94
[2024-10-31 08:01] VITALS: BP 179/74
[2024-10-31 08:02] VITALS: BP 177/78
[2024-10-31] MEDS: BUPIVACAINE HCL 0.25% PF 25 MG/10 ML VIAL 2 ML INJ (08:03)
[2024-10-31] MEDS: IOHEXOL 240 MG/ML - 10 ML VIAL INJ (08:03)
[2024-10-31] MEDS: LIDOCAINE HCL 2% 400 MG/20 ML MDV INJ (08:03)
[2024-10-31] MEDS: METHYLPREDNISOLONE ACETATE 40 MG/ML VIAL INJ (08:03)
--- NOTE | 2024-10-31 08:04 | W.PM.PROCNOT ---
Date of procedure: 10/31/24 Pre-op diagnosis: Pain due to left sacroiliitis Post-op diagnosis: same as pre-op Procedure: Procedure: Left block of the nerve innervating the sacroiliac joint Medications: Bupivacaine 0.25% 3cc, depomedrol 40mg After informed consent was obtained, the patient was brought to the medical procedure unit and placed in the prone position, when a timeout was completed verifying correct patient, procedure, site, positioning, implant, and/or special equipment.? The skin overlying the area was prepped and draped in standard sterile fashion using alcohol.? A 25-gauge needle was inserted towards the superior gluteal nerve innervating the left sacroiliac joint under direct fluoroscopic imaging.? Needle tip was advanced until the nerve was encountered.? We instilled a total of 0.5 mL of solution. Subsequently, the dorsal rami of L5, S1, and S2 were approached, and the procedure completed in the same fashion.? Postoperatively needles were removed.? The patient tolerated the procedure well without complication.? The patient reported reduction in pain symptoms postoperatively. Anesthesia: Local Surgeon: Daisy Liz Pathology: none sent Condition: stable Disposition: no change
== END 2024-10-31 08:07 | disposition home or self-care (01) ==
LOC: SURGOUT 06:51
PROVIDERS: PCP Family Medicine; Visit Provider Anesthesiology
DX: M46.1 Sacroiliitis, not elsewhere classified (principal)
CPT/HCPCS: 64451; J0665; J1010; Q9966

== ENCOUNTER 2024-11-17 09:50 | Outpatient (OUT) | payer MEDICARE, SELFPAY ==
--- OUTSIDE RECORDS SUMMARY | 2024-11-08 09:00 | XMS_ITS | Encounter Summary ---
Author Organization [facility] ulike s tem Address [id number] [address] [place] [address] Care Team Providers Care Mill Dresser Name Role Phone Marine Glass MD Primary Care Provider [phone] Reason for Visit * Reason Comments Follow-up OV F/U 1 YR NO TESTS L/S FRS, SCHED W/PT Encounter Details Date Type Department Care Team (Late st Contact Info) Description 11/08/2024 9:00 AM EDT Office Visit [facility] [address] [place] [phone] Karen Mart, ACCOUNTANT AUDITOR-SENIOR RELIABILITY ENGINEER [address] [place] [address] Paroxysmal atrial fibrillation (CMS-HCC) (Primary Dx); Primary hypertension; Palpitations Social History Tobacco Use Types Packs/Day Years [...] got money to buy more. Never True 11/08/2024 Within the past 12 months th e food we bought just didn't last and we didn't have money to get more. Never True 11/08/2024 Purpose - Life Answer Date Recorded Purpose and direction in life Unknown Comments No Sex and Gender Information Value Date Recorded Sex Assigned at Female 05/09/2018 11:19 AM EST Legal Sex Female 11:36 AM EDT Gender Identity Female 05/09/2018 11:19 AM EST Sexual Orientation Not on file documented as of this encounter Last Filed Vital Signs Vital Sign Reading Time Taken Comments Blood Pressure 130/78 11/08/2024 8:34 AM EDT Pulse 55 11/08/2024 8:34 AM EDT Temperature - - Respiratory Rate - - Oxygen Saturation 96% 11/08/2024 8:34 AM EDT Inhaled Oxygen Concentration - - Weight 80.7 kg (178 lb) 11/08/2024 8:34 AM EDT Height 165.1 cm (5' 5 ) 11/08/2024 8:34 AM EDT Body Mass Index 29.62 11/08/2024 8:34 AM EDT documented in this encounter Patient Instructions * Patient Instructions* MEDINA Landry - 11/08/2024 9:00 AM EDT BP and HR are well controlled. Continue cardiac medications. Recommend follow up in one year. Please call the office if you develop new or worsening symptoms and we will see you sooner. documented in this encounter Progress Notes * MEDINA Landry - 11/08/2024 9:00 AM EDT Bettie Carly Grant Date of visit: 11/08/2024 Date of : 1945 Age: 79 y.o. Patient Active Problem List Diagnosis Paroxysmal atrial fibrillation (CMS-HCC) Hypertension SOB (shortness of breath) Dyspnea Palpitations Abnormal findings diagnostic imaging of heart and coronary circulation Allergies Allergen Reactions Adhesive Other reaction(s): Blister Morphine Hives Penicillin G Benzathin,Procain Rofecoxib Sulfadiazine Zolpidem Codeine Itching and Rash With all narcotics except Demerol Levaquin [Levofloxacin] Itching and Rash Lioresal [Baclofen] Itching and Rash Penicillins Rash and Hives Ultram [Tramadol] Itching Vicodin [Hydrocodone-Acetaminophen] Itching and Rash Current Outpatient Medications Medication Sig Dispense Refill ELIQUIS 5 mg tablet TAKE 1 TABLET TWICE A DAY 180 tablet 0 flecainide (TAMBOCOR) 50 mg tablet Take 1 tablet (50 mg total) by mouth in the morning and 1 tablet(50 mg total) before bedtime. 180 tablet 1 hydroCHLOROthiazide (HYDRODIURIL) 25 mg tablet TAKE 1 TABLET DAILY 90 tablet 0 lisinopriL (PRINIVIL,ZESTRIL) 20 mg tablet Take 1 [...] mouth in the morning. 90 tablet 3 trospium (SANCTURA) 20 mg tablet Take 1 tablet (20 mg total) by mouth in the morning and 1 tablet (20 mg total) before bedtime. vitamins A,C,U-uxft-dhlckm (ICAPS AREDS) 4,296 mcg-226 mg-90 mg capsule Take 1 capsule by mouth in the morning and 1 capsule before bedtime. atenoloL (TENORMIN) 50 mg tablet Take 1 tablet (50 mg total) by mouth in the morning and 1 tablet (50 mg total) before bedtime. No current facility-administered medications for this visit. Chief Complaint Patient presents with Follow-up OV F/U 1 YR NO TESTS L/S FRS, SCHED W/PT History of Present Illness TF is a 79 yo F who presents to the office today for her annual visit. She has a hx of HTN, paroxysmal atrial fibrillation S/p ablation 2018 on Eliquis, palpitations. TTE from 2021 shows EF of 55-60%with no wall motion abnormalities nor significant valvulopathy. LHC in 2021 showed nonobstructive CAD with mildly elevated LVEDP. Today, she denies CP, SOB, or palpitations at this time. No syncope. She can feel when she is atrial fib and has not had a recurrence in 6 months. She does regularly work out on a recumbent bike 3-7x a week for 30 to 60 min. Patient was seen when Dr. Kaye was readily available in office. Past Medical History: Diagnosis Date A-fib ([facility] hx of Allergic Allergic to certain medications Arrhythmia 12/2016 ATRIAL FIBRILLATION Arthritis Back pain Chronic Nerve ablation 07/12/19 Breast cancer ([facility]) 11/14/2015 LEFT Cataract 02/2019 Removed 03/2019 COVID-19 03/2020 GERD (gastroesophageal reflux disease) Controlled with Prilosec History of bleeding ulcers HL (hearing loss) Hypertension Controlled Migraines Peptic ulceration 2012 Healed Pneumonia COVID 03/11/20 d/t covid Prolonged emergence from general anesthesia Varicella Childhood Visual impairment glasses No data recorded No data recorded No data recorded Past Surgical History: Procedure Laterality Date ABLATION OF DYSRHYTHMIC FOCUS Right nerve ablation, L4 and L5 Afib ablation with SHANICE - CRYO, Rhythmia, ICE N/A 09/28/2018 Performed by Grant Quiñonez MD at [facility] () APPENDECTOMY 1997 ARM SURGERY Both shoulders rotator cuff repair ARTHROSCOPY REPAIR ROTATOR CUFF SHOULDER Right 05/16/2020 Performed by Melchro Rivera DO at [facility] ARTHROSCOPY SHOULDER Right 05/16/2020 Performed by Melchor Rivera DO at [facility] BREAST BIOPSY Left 2015 2016 BREAST LUMPECTOMY Left 11/14/2015 WITH RADIATION BREAST SURGERY Left 2016 lumpectomy CATARACT EXTRACTION CHOLECYSTECTOMY 2001 COLONOSCOPY 2018 Will not need one again Coronary angiogram and left ventricular gram/pressure N/A 08/08/2021 Performed by Bertram Lal MD at [facility] CARDIAC CATH LABS EGD 2017 EYE SURGERY Cataract removal r/l 07/2019 lids lifted HIP SURGERY Right 12/16/2021 HYSTERECTOMY JOINT REPLACEMENT Total hip replacement. 12/16/2021 LYMPH NODE BIOPSY 2014 All negative L/breast OOPHORECTOMY SHOULDER ARTHROSCOPY Bilateral TUBAL LIGATION 1973 Family History Problem Relation Age of Onset Cancer Mother Arthritis Mother Colon cancer Mother Cancer Father Lung cancer Father Parkinsonism Sister Arrhythmia Sister Colon cancer Sister Parkinsons Breast cancer Niece 45 Colon cancer Sister Parkinsons Prostate cancer Brother Prostate cancer Brother Social History Socioeconomic History Marital status: Spouse [...] Other Topics Concern Caffeine Use Yes Comment: 1/2 cup Social History Narrative Not on file Social Drivers of Health Financial Resource Strain: Not on file Food Insecurity: No Food Insecurity (11/08/2024) Hunger Screening Food Insecurity - Worry: Never True Food Insecurity - Inability: Never True Transportation Needs: No Transportation Needs (07/07/2023) Received from [facility] PRAPARE - Transportation Lack of Transportation (Medical): No Lack of Transportation (Non-Medical): No Physical Activity: Not on file Stress: Not on file Social Connections: Not on file Interpersonal Safety: Not on file Housing Instability: Low Risk (07/07/2023) Received from [facility] Housing Stability Vital Sign Unable to Pay for Housing in the Last Year: No Number of Places Lived in the Last Year: 1 Unstable Housing in the Last Year: No Review of Systems Review of Systems Constitutional: Negative. HENT: Negative. Eyes: Negative. Cardiovascular: Negative. Respiratory: Negative. Endocrine: Negative. Hematologic/Lymphatic: Negative. Skin: Negative. Musculoskeletal: Positive for arthritis and back pain. Gastrointestinal: Negative. Genitourinary: Negative. Neurological: Negative. Psychiatric/Behavioral: Negative. Allergic/Immunologic: Positive for environmental allergies. Vascular: Negative. CARDIOVASCULAR: Please review HPI. Physical Examination General [...] mood, memory and judgement. VITAL SIGNS: BP 130/78 Pulse 55 Ht 165.1 cm (5' 5 ) Wt 80.7 kg (178 lb) SpO2 96% BMI 29.62 kg/m² Orders Placed or Reconciled This Encounter Medications atenoloL (TENORMIN) 50 mg tablet Sig: Take 1 tablet (50 mg total) by mouth in the morning and 1 tablet (50 mg total) before bedtime. Medications Discontinued During This Encounter Medication Reason baclofen (LIORESAL) 20 mg tablet Therapy completed temazepam (RESTORIL) 30 mg capsule Therapy completed atenoloL (TENORMIN) 50 mg tablet Reorder IMPRESSIONS/PLAN 1. Paroxysmal atrial fibrillation (CMS-HCC) - POCT EKG 2. Primary hypertension 3. Palpitations PLAN BP and HR are controlled with flecainide, atenolol, lisinopril, HCTZ. She appears euvolemic Labs are in good range She has been working out regularly without issue She does monitor her atrial fib with her smart watch. Continue cardiac medications She is in SR per EKG Recommend follow up in one year. TODAYS ORDERS Orders Placed This Encounter Procedures POCT EKG FOLLOW UP No follow-ups on file. PCP: MARINE GLASS MD Referring Physician: Marine Glass MD [address] [place] [address] MEDINA Landry 11/08/24 0926 documented in this encounter Plan of Treatment Not on file documented as of this encounter Procedures Procedure Name Priority Date/Time Associated Diagnosis Comments POCT EKG Routine 11/08/2024 Paroxysmal atrial fibrillation ([facility]) documented in this encounter Results * POCT EKG (11/08/2024) us Karen HANEY ECG ORDERABLES Final Resu lt MANUALLY TRANSCRIBED RESULTS documented in this encounter Visit Diagnoses Diagnosis Paroxysmal atrial fibrillation ([facility])- Primary Atrial fibrillation Primary hypertension Unspecified essential hypertension Palpitations documented in this encounter Additional Health Concerns Assessment Noted Time PHQ-9 Depression Total Score: 0 04/24/20 20 10:41 AM EST documented as of this encounter Care Teams Mill Dresser Relationship Specialty Start Date End Date Marine Glass MD [address] [place] [address] PCP - General 07/15/23 documented as of this encounter
--- OUTSIDE RECORDS SUMMARY | 2024-11-17 09:53 | XMS_ITS | Encounter Summary ---
Author Organization [facility] Address [facility] [place]-[id number] [address] [place] [address] Care Team Providers Care Land Development Project Manager Name Role Phone Marine Glass MD Primary Care Provider [phone] Encounter Details Date Type Department Care Team (Late st Contact Info) Description 12/04/2022 Orders Only [facility] [address] [place] [phone] Jacqueline Sparrow, RN Primary hypertension (Primary Dx); [...] on file documented as of this encounter Results * (ABNORMAL) Basic Metabolic Panel (12/29/2022 10:28 AM EDT) Sodium 143 134 - 146 mmol/L 12/29/2022 1:41 PM EDT [facility] Potassium, Bld 3.9 3.5 - 5.0 mmol/L 12/29/2022 1:41 PM EDT [facility] Chloride 103 98 - 109 mmol/L 12/29/2022 1:41 PM EDT [facility] CO2 30 22 - 32 mmol/L 12/29/2022 1:41 PM EDT [facility] Anion gap 10 5 - 15 mmol/L 12/29/2022 1:41 PM EDT [facility] BUN 23 5 - 27 mg/dL 12/29/2022 1:41 PM EDT [facility] Creatinine 1.04(H) 0.40 - 1.00 mg/dL 12/29/2022 1:41 PM EDT [facility] Comment:METHOD TRACEABLE TO IDMS STANDARD Glucose 95 65 - 99 mg/dL 12/29/2022 1:41 PM EDT [facility] Calcium 10.0 8.5 - 10.5 mg/dL 12/29/2022 1:41 PM EDT [facility] eGFR (CKD-EPI)non-ra ce dependent 56(L) >59 ml/min/1.7 3sq.m 12/29/2022 1:41 PM EDT [facility] Comment: Reported eGFR is based on the CKD-EPI 2020 equation that does not use a race coefficient. PLASMA 12/29/2022 10:2 8 AM EDT 12/29/2022 10:29 AM EDT us Mike Craft MD LAB BLOOD ORDERABLES Final Re sult [place] [facility] [address] [place] [address] documented in this encounter Visit Diagnoses Diagnosis Primary hypertension- Primary Unspecified essential hypertension Paroxysmal atrial fibrillation ([facility]) Atrial fibrillation documented in this encounter Additional Health Concerns Assessment Noted Time PHQ-9 Depression Total Score: 0 04/24/20 20 10:41 AM EST documented as of this encounter Care Teams Land Development Project Manager Relationship Specialty Start Date End Date Marine Glass MD [address] [place] [address] PCP - General 07/15/23 documented as of this encounter
--- OUTSIDE RECORDS SUMMARY | 2024-11-17 09:53 | XMS_ITS | Encounter Summary ---
Author Organization [facility] Address [facility] [place]-[id number] [address] [place] [address] Care Team Providers Care Ordering Box Operator Name Role Phone Marine Glass MD Primary Care Provider [phone] Encounter Details Date Type Department Care Team (Late st Contact Info) Description 06/26/2023 Orders Only [facility] [address] [place] [phone] External, Scanning Provider Social History Tobacco Use [...] 4:10 PM EST) us Scanning Provider External [place] [facility] Final Result Performing Organization Address City/[facility]/ZIP Co de Phone Number MANUALLY TRANSCRIBED RESULTS * ECG 12 lead (06/26/2023 4:09 PM EST) us Scanning Provider External ECG ORDERABLES Final Result Performing Organization Address City/[facility] Co de Phone Number MANUALLY TRANSCRIBED RESULTS documented in this encounter Visit Diagnoses Not on filedocumented in this encounter Additional Health Concerns Assessment Noted Time PHQ-9 Depression Total Score: 0 04/24/20 20 10:41 AM EST documented as of this encounter Care Teams Ordering Box Operator Relationship Specialty Start Date End Date Marine Glass MD [address] [place] [address] PCP - General 07/15/23 documented as of this encounter
--- OUTSIDE RECORDS SUMMARY | 2024-11-17 09:53 | XMS_ITS | Clinical Summary ---
Author Organization [employer] Address [address] [place] [address] Care Team Providers Care Hod Carrier Name Role Phone Marine Glass MD Primary Care Provider [phone] Allergies Active Allergy Reactions Criticality Noted Date [...] 1 month, then 2x/week for maintainence, [id number], 165, cm, 02/11/23 10:41:00 EDT, Height/Length [...] = 0.6 oz pur e alcohol) social [facility] Utilities Answer Date Recorded In the past 12 months has th e [employer], gas, oil, or water [employer] threatened to shut off services in your [...] place to sleep or slept in a intermediate (including now)? No 07/07/2023 Comments Unknown Sex [...] 09/29/2024 09/30/2023, 09/27/2022, 09/27/2021, Additional history exists INFLUENZA VACCINE (#1) 2025 , 02/10/2023, 02/01/2022, Additional history exists PNEUMOCOCCAL VACCINE SERIES Completed 08/2017, 02/17/2017, 02/05/2017 RSV VACCINE Completed 02/10/2023 HEP B VACCINE Aged Out No longer orlando baxter based on patient's age to complete this topic Medical Devices Implanted Type Area Assembly Department Supervisor Device Identifier Shelf Expiration Date Model / Serial / Lot Anchors, 5.5 Non Punching - [id number] Implanted:Qty: 1 on 07/07/2023 by Miko Pascual MD at [facility] Right: Hip [employer] 10/31/2026 [id number] / / [id number] Anchors, 5.5 Non Punching - [id number] Implanted:Qty: 3 on 07/07/2023 by Miko Pascual MD at [facility] Right: Hip [employer] 05/03/2027 [id number] / / [id number] Procedures Procedure Name Priority Date/Time Associated Diagnosis Comments BASIC METABOLIC PANEL Today 2023 4:48 AM EST from Last 3 Months or Most Recently Relevant to Health Maintenance Results * (ABNORMAL) BASIC METABOLIC PANEL (2023 4:48 AM EST) Glucose 141(H) 70 - 100 MG/DL [address] Comment: NORMAL <100 mg/dL PREDIABETES 101-126 mg/dL DIABETES 126 mg/dL or higher BUN 30(H) 7 - 20 MG/DL [address] CREATININE SERUM 1.10 0.70 - 1.20 MG/DL [address] SODIUM 134(L) 137 - 145 MMOL/L [address] Potassium 3.8 3.5 - 5.1 MMOL/L [address] CHLORIDE 103 98 - 107 MMOL/L [address] Comment:Please note: Triglyc eride levels of 600mg/dL or higher may positively bias chloride results by approximately 2.1 mmol CARBON DIOXIDE (CO2) 30 22 - 30 MMOL/L [address] ANION GAP 1 MMOL/L [address] CALCIUM 8.7 8.4 - 10.2 MG/DL [address] ESTIMATED GFR, NON AMER 51 ml/min/1. 73sq.m [address] ESTIMATED GFR, 62 ml/min/1. 73sq.m [address] GFR COMMENT Average GFR for 70+ years old = 75. [address] Comment: Chronic Kidney disease, GFR = <60. Kidney failure, GFR = <15. The GFR estimate is not adjusted for extreme body surface area or acute process, nor has it been validated for women or ethnic groups other than and . Blood 2023 4:48 AM EST 2023 5:12 AM EST us Chance Mahoney MD CHEMISTRY ORDERABLES Final Resul t [address] [address] from Last 3 Months or Most Recently Relevant to Health Maintenance Insurance MEDICARE [employer]ET[employer] PPO Advance Directives For more information, please contact: [phone] (7:30 AM - 6PM [facility], Thursday-Thursday) Documents on File Type Date Recorded Patient Business Support Specialist Expl anation Advance Directives/Living Will 06/25/2023 9:17 AM DURABLE POWER OF CRAFT ARTIST FOR HEALTHCARE 06/25/23 Advance Directives/Living Will 06/25/2023 9:13 AM LIVING WILL 06/25/23 * Full Code (Latest Code Status on File) Date Activated Date Inactivated Comments 07/07/2023 3:27 PM Care Teams Hod Carrier Relationship Specialty Start Date End Date Marine Glass MD PCP - General Family Medicine 05/11/23
--- OUTSIDE RECORDS SUMMARY | 2024-11-17 09:53 | XMS_ITS | Encounter Summary ---
Author Organization [facility] Address [facility] [place]-[id number] [address] [place] [address] Care Team Providers Care Press Operator Carbon Blocks Name Role Phone Marine Glass MD Primary Care Provider Reason for Visit * Reason Onset Date Comments Med Refill 11/25/2022 Encounter Details Date Type Department Care Team (Late st Contact Info) Description 11/25/2022 Refill [facility] [address] [place] [phone] Miquel Fabian, PA-C [address] [place], [place] [id number] Med Refill Social History Tobacco Use Types [...] was addressed yesterday and sent to [facility]. Pt needs labs done for further refills. documented in this encounter Plan of Treatment Not on file documented as of this encounter Visit Diagnoses Not on filedocumented in this encounter Additional Health Concerns Assessment Noted Time PHQ-9 Depression Total Score: 0 04/24/20 20 10:41 AM EST documented as of this encounter Care Teams Press Operator Carbon Blocks Relationship Specialty Start Date End Date Marine Glass MD [address] [place] [address] PCP - General 07/15/23 documented as of this encounter
--- OUTSIDE RECORDS SUMMARY | 2024-11-17 09:53 | XMS_ITS | Encounter Summary ---
Author Organization [employer] [facility] Address [facility] [place]-[id number] [address] [place] [address] Care Team Providers Care Rebar Fabricator Name Role Phone Marine Glass MD Primary Care Provider [phone] Encounter Details Date Type Department Care Team (Latest Contact Info) Description 11/06/2024 Travel Social History Tobacco Use Types Packs/Day Years [...] documented as of this encounter Care Teams Rebar Fabricator Relationship Specialty Start Date End Date Marine Glass MD [address] [place] [id number] PCP - General 07/15/23 documented as of this encounter
--- OUTSIDE RECORDS SUMMARY | 2024-11-17 09:53 | XMS_ITS | Encounter Summary ---
Author Organization [facility] Address [facility] [place][id number] [address] [place] [address] Care Team Providers Care Orthodontist Assistant Name Role Phone Marine Glass MD Primary Care Provider [phone] Encounter Details Date Type Department Care Team (Late st Contact Info) Description 08/10/2023 [facility] [address] [place] [address] Meredith Bernal MA Social History Tobacco Use [...] documented as of this encounter Care Teams Orthodontist Assistant Relationship Specialty Start Date End Date Marine Glass MD [address] [place] [address] PCP - General 07/15/23 documented as of this encounter
--- OUTSIDE RECORDS SUMMARY | 2024-11-17 09:53 | XMS_ITS | Clinical Summary ---
Author Organization [employer] tem Address [facility] [place]-[id number] [address] [place] [address] Care Team Providers Care Sales Development Director Name Role Phone Marine Glass MD Primary Care Provider [phone] Allergies Active Allergy Reactions Criticality Noted Date Comments Adhesive Medium 07/03/2022 Other reaction(s): Blister Codeine Itching,Rash Low 03/19/2017 With all narcotics except Demerol Levofloxacin Itching,Rash Low 03/19/2017 Baclofen Itching,Rash Low 03/19/2017 Morphine Hives 11/30/2016 Penicillin G Benzathin,Procain 07/03/2022 Penicillins Rash,Hives Low 12/03/2015 Rofecoxib 07/03/2022 Sulfadiazine 07/03/2022 Tramadol Itching Low 07/13/2019 Hydrocodone-Acetaminophen Itching,Rash Low 03/19/20 17 Zolpidem 07/03/2022 Medications lisinopriL (PRINIVIL,ZESTRI L) 20 mg tablet Take 1 tablet (20 mg total) by mouth in the morning. Active omeprazole (PriLOSEC) 20 mg capsule Take 1 capsule (20 mg total) by mouth in the morning. Active naproxen sodium (ALEVE) 220 mg tablet Take 1 tablet (220 mg total) by mouth as needed for pain. Active NON FORMULARY Med Name:Luis boyle vitamin 1 qd Active trospium (SANCTURA) 20 mg tablet Take 1 tablet (20 mg total) by mouth in the morning and 1 tablet (20 mg total) before bedtime. Active vitamins A,C,F-uxfy-gusei r (ICAPS AREDS) 4,296 mcg-226 mg-90 mg capsule Take 1 capsule by mouth in the morning and 1 capsule before bedtime. 10/28/19 24 Active potassium chloride (K-TAB,KLOR-CON) 10 MEQ CR tablet Take 1 tablet (10 mEq total) by mouth in the morning. 90 tablet 3 11/26/19 24 Active flecainide (TAMBOCOR) 50 mg tabletIndication s:Paroxysmal atrial fibrillation (CMS-HCC) Take 1 tablet (50 mg total) by mouth in the morning and 1 tablet (50 mg total) before bedtime. 180 tablet 1 07/29/19 25 Active hydroCHLOROthiaz rudolph (HYDRODIURIL) 25 mg tablet TAKE 1 TABLET DAILY 90 tablet 11/04/19 25 Active ELIQUIS 5 mg tabletIndication s:Paroxysmal atrial fibrillation (CMS-HCC) TAKE 1 TABLET TWICE A DAY (NEED ALL ANNUAL LABS DRAWN FOR FURTHER REFILLS, 08/10/24) 180 tablet 3 11/17/19 25 Active atenoloL (TENORMIN) 50 mg tablet Take 1 tablet (50 mg total) by mouth in the morning and 1 tablet (50 mg total) before bedtime. 11/09/19 25 Active temazepam (RESTORIL) 30 mg capsule Take 1 capsule (30 mg total) by mouth nightly. 025 Discontinued(Th erapy completed) baclofen (LIORESAL) 20 mg tablet Take 1 tablet (20 mg total) by mouth 3 (three) times a day. PRN 025 Discontinued(Th erapy completed) atenoloL (TENORMIN) 50 mg tablet TAKE ONE AND ONE-HALF TABLETS IN THE MORNING 135 tablet 1 07/07/19 25 025 Discontinued(Re order) hydroCHLOROthiaz rudolph (HYDRODIURIL) 25 mg tablet TAKE 1 TABLET DAILY 90 tablet 08/05/19 25 025 Discontinued ELIQUIS 5 mg tabletIndication s:Paroxysmal atrial fibrillation (CMS-HCC) TAKE 1 TABLET TWICE A DAY 180 tablet 08/11/19 25 025 Discontinued Active Problems Problem Noted Date Diagnosed Date Abnormal findings diagnostic imaging of heart and coronary circulation 07/29/2021 Overview (07/29/2021): Added automatically from request for surgery [id number] Dyspnea 06/30/2018 Overview (06/30/2018): Added automatically from request for surgery [id number] Palpitations 06/30/2018 Overview (06/30/2018): Added automatically from request for surgery [id number] SOB (shortness of breath) 05/12/2018 Hypertension 10/06/2017 Paroxysmal atrial fibrillation 08/31/2017 Resolved Problems Problem Noted Date Diagnosed Date Resolved Date Preoperative clearance 12/29/202211/08 Unstable angina 07/29/2021 08/16/2021 Overview (07/29/2021): Added automatically from request for surgery [id number] SOB (shortness of breath) 05/12/2018 SVT (supraventricular tachycardia) 11/16/2017 12/30/2019 Encounters Date Type Department Care Team Description 11/15/2024 Refill [facility] [address] [place] [phone] Vinicio Causey PA-C Med Refill 11/09/2024 Results Follow-Up [facility] [address] [place] [address] Alyce Deras RN CBC 11/08/2024 9:00 AM EDT Office Visit [facility] [address] [place] [address] Karen Mart APRN-[place] Paroxysmal atrial fibrillation ([facility]-HCC) (Primary Dx); Primary hypertension; Palpitations 11/08/2024 Results Follow-Up [facility] [address] [place] [address] Sander Pollack RN Comprehensive metabolic panel, Magnesium 11/08/2024 Refill [facility] [address] [place] [phone] Rosangela Montague INWARD TOLL OPERATOR-RECEIVING LEAD Med Refill 11/06/2024 Travel 11/01/2024 Refill [facility] [address] [place] [address] Divine Kaur INWARD TOLL OPERATOR-RECEIVING LEAD Med Refill from Last 3 Months Family History Medical History Relation Name Comments Prostate cancer Brother 1 Anselmo Moon Prostate cancer Brother 2 Anselmo Moon Cancer Father Bertram Moon Lung cancer Father Bertram Moon Arthritis Mother Marilu Moon Cancer Mother Marilu Moon Colon cancer Mother Marilu Moon Breast cancer Niece Arrhythmia Sister 1 Marine Olivaerna Colon cancer Sister 1 Marine Sberna Parkinsons Parkinsonism Sister 1 Marine Sberna Colon cancer Sister 3 Marine Sberna Parkinsons Relation Name Status Comments Brother 1 Anselmo Moon Alive Brother 2 Anselmo Moon Alive Father Bertram Moon Mother Marilu Moon Niece Other Sister 1 Marine Sberna Sister 2 Leonora beltrán Alive Sister 3 Marine Sberna Alive Social History Tobacco Use Types Packs/Day Years [...] Pulse 55 11/08/2024 8:34 AM EDT Temperature 36.6 C (97.9 F) 05/16/2020 9:10 AM EST Respiratory Rate 21 07/15/2023 2:12 PM EDT Oxygen Saturation 96% 11/08/2024 8:34 AM EDT Inhaled Oxygen Concentration - - Weight 80.7 kg (178 lb) 11/08/2024 8:34 AM EDT Height 165.1 cm (5' 5 ) 11/08/2024 8:34 AM EDT Body Mass Index 29.62 11/08/2024 8:34 AM EDT Plan of Treatment Health Maintenance Due Date Last Done Comments Depression Screening 1957 DTaP,Tdap and Td Vaccines (1 - Tdap) 07/07/1966 Zoster (Shingles) Vaccine (1 of 2) 07/07/1997 Fall Risk Screening 07/07/2012 Colonoscopy 04/08/2022 04/08/2017, 08/18/2012 COVID-19 Vaccine (2023-2 5 season) 2024 02/08/2024, 02/10/2023, 08/13/2021, Additional history exists Influenza Vaccine 01/02/2025 02/08/2024, , 02/01/2022, Additional history exists Tobacco Screening 11/08/2025 11/08/2024 Medical Devices Not on file Procedures Procedure Name Priority Date/Time Associated Diagnosis Comments CBC (NO DIFF) Routine 11/09/2024 10:16 AM EDT Paroxysmal atrial fibrillation (CMS-HCC) Benign hypertension MAGNESIUM Routine 11/08/2024 9:52 AM EDT Primary hypertension 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) COMPREHENSIVE METABOLIC PANEL Routine 11/08/2024 9:52 AM EDT Primary hypertension 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) POCT EKG Routine 11/08/2024 Paroxysmal atrial fibrillation (CMS-HCC) HM COLONOSCOPY Routine 08/18/2012 from Last 3 Months or Most Recently Relevant to Health Maintenance Results * CBC (11/09/2024 10:16 AM EDT) WBC 5.1 4 - 11 x10E9/L 11/09/2024 1:58 PM EDT [facility] RBC Count 4.16 3.8 - 5.2 X10E12/L 11/09/2024 1:58 PM EDT [facility] Hemoglobin 13.6 11.7 - 15.5 g/dL 11/09/2024 1:58 PM EDT [facility] Hematocrit 40.0 35 - 47 % 11/09/2024 1:58 PM EDT [facility] MCV 96 80 - 100 fL 11/09/2024 1:58 PM EDT [facility] MCH 32.7 27 - 34 pg 11/09/2024 1:58 PM EDT [facility] MCHC 34.1 32 - 36 g/dL 11/09/2024 1:58 PM EDT [facility] RDW 12.8 11.5 - 15 % 11/09/2024 1:58 PM EDT [facility] Platelet Count 206 150 - 450 X10E9/L 11/09/2024 1:58 PM EDT [facility] MPV 7.0 7 - 12 fL 11/09/2024 1:58 PM EDT [facility] Blood Venous blood / Unknown Venipuncture / Unknown 11/09/2024 10:16 AM EDT 11/09/2024 10:16 AM EDT us Rosangela Montague INWARD TOLL OPERATOR-RECEIVING LEAD LAB BLOOD ORDERABLES Final Result [facility] [address] [place] [address], * Magnesium (11/08/2024 9:52 AM EDT) MAGNESIUM 1.9 1.8 - 2.6 mg/dL 11/09/2024 1:19 AM EDT [facility] Blood Venous blood / Unknown Venipuncture / Unknown 11/08/2024 9:52 AM EDT 11/08/2024 9:52 AM EDT Divineeli Kaur INWARD TOLL OPERATOR-RECEIVING LEAD LAB BLOOD ORDERABLES Final Result [facility] [address] [place] [address], * (ABNORMAL) Comprehensive metabolic panel (11/08/2024 9:52 AM EDT) Pathologist [facility] SODIUM 141 134 - 146 mmol/L 11/08/2024 2:01 PM EDT [facility] POTASSIUM 3.9 3.5 - 5.0 mmol/L 11/08/2024 2:01 PM EDT [facility] CHLORIDE 101 98 - 109 mmol/L 11/08/2024 2:01 PM EDT [facility] CARBON DIOXIDE 32 22 - 32 mmol/L 11/08/2024 2:01 PM EDT [facility] ANION GAP 8 5 - 15 mmol/L 11/08/2024 2:01 PM EDT [facility] BLOOD UREA NITROGEN 27 5 - 27 mg/dL 11/08/2024 2:01 PM EDT [facility] CREATININE 1.06(H) 0.40 - 1.00 mg/dL 11/08/2024 2:01 PM EDT [facility] Comment:METHOD TRACEABLE TO IDMS STANDARD GLUCOSE 109(H) 65 - 99 mg/dL 11/08/2024 2:01 PM EDT [facility] CALCIUM 10.0 8.5 - 10.5 mg/dL 11/08/2024 2:01 PM EDT [facility] TOTAL PROTEIN 7.2 6.0 - 8.0 g/dL 11/08/2024 2:01 PM EDT [facility] ALBUMIN 4.2 3.2 - 5.3 g/dL 11/08/2024 2:01 PM EDT [facility] ALKALINE PHOSPHATASE 48 39 - 130 U/L 11/08/2024 2:01 PM EDT [facility] AST 17 <=41 U/L 11/08/2024 2:01 PM EDT [facility] ALT 10 <=31 U/L 11/08/2024 2:01 PM EDT [facility] BILIRUBIN,TOTAL 0.5 0.3 - 1.2 mg/dL 11/08/2024 2:01 PM EDT [facility] EGFR Non-Race Dependent 54(L) >=60 ml/min/1.7 3sq.m 11/08/2024 2:01 PM EDT [facility] Comment: Reported eGFR is based on the CKD-EPI 2020 equation that does not use a race coefficient. Blood Venous blood / Unknown Venipuncture / Unknown 11/08/2024 9:52 AM EDT 11/08/2024 9:52 AM EDT us Divine Kaur INWARD TOLL OPERATOR-RECEIVING LEAD LAB BLOOD ORDERABLES Final Result Performing Organization Address City/[facility]/ZIP Co de Phone Number [facility] [address] [place] [address], [place] [phone] * POCT EKG (11/08/2024) us Karen Matr INWARD TOLL OPERATOR-RECEIVING LEAD ECG ORDERABLES Final Resu lt MANUALLY TRANSCRIBED RESULTS * HM COLONOSCOPY (08/18/2012) Pathologist [facility] Colonoscopy COLONOSCOPY [facility] EXTERNAL NON-INTERFACE D REF LAB us Scanning Provider External HEALTH MAINTENANCE Fi nal Result [facility] EXTERNAL NON-INTERFACED REF LAB [address] [place] [address] from Last 3 Months or Most Recently Relevant to Health Maintenance Insurance [employer] MEDICARE Advance Directives Documents on File Type Date Recorded Patient Nuisance Wildlife Control Operator Expl anation Living Will 05/21/2020 9:37 AM Durable Power of Aeronautics Teacher 05/21/2020 9:27 AM Durable Power of Aeronautics Teacher 05/16/2020 6:05 AM Living Will 05/16/2020 6:04 AM Healthcare Agents on File Name Relationship Healthcare Agent Relationshi p Communication David Burns Spouse Health Care Agent Samantha Inman Daughter [facility] re Agent Care Teams Sales Development Director Relationship Specialty Start Date End Date Marine Glass MD [address] [place] [address] PCP - General 07/15/23
--- OUTSIDE RECORDS SUMMARY | 2024-11-17 09:53 | XMS_ITS | Encounter Summary ---
Author Organization [facility] tem Address [facility] [place]-[id number] [address] [place] [address] Care Team Providers Care Torch Cutter Name Role Phone Marine Glass MD Primary Care Provider [phone] Encounter Details Date Type Department Care Team (Late st Contact Info) Description 11/09/2024 Results Follow-Up [facility] [address] [place] [address] Alyce Deras, RICARDO CBC Social History Tobacco Use Types Packs/Day Years [...] documented as of this encounter Care Teams Torch Cutter Relationship Specialty Start Date End Date Marine Glass MD [address] [place] [address] PCP - General 07/15/23 documented as of this encounter
--- OUTSIDE RECORDS SUMMARY | 2024-11-17 09:53 | XMS_ITS | Encounter Summary ---
Author Organization [facility] Address [facility][id number] [address] [place] [address] Care Team Providers Care Bilingual Administrative Assistant Name Role Phone Marine Glass MD Primary Care Provider [phone] Reason for Visit * Reason Comments Med Refill Encounter Details Date Type Department Care Team (Late st Contact Info) Description 11/01/2024 Refill [facility] [address] [place] [address] Divine Kaur, ORACLE APPLICATION CONSULTANT-COUNTY AUDITOR [address] [place] [address] Med Refill Social History Tobacco Use Types [...] encounter Miscellaneous Notes * Telephone Encounter - Gabrielle Moffett RN - 11/01/2024 12:27 AM EDT Overdue labs. Pt has been notified. Ov scheduled 11/08 documented in this encounter Plan of Treatment Not on file documented as of this encounter Visit Diagnoses Not on filedocumented in this encounter Additional Health Concerns Assessment Noted Time PHQ-9 Depression Total Score: 0 04/24/20 20 10:41 AM EST documented as of this encounter Care Teams Bilingual Administrative Assistant Relationship Specialty Start Date End Date Marine Glass MD [facility] [place] [address] PCP - General 07/15/23 documented as of this encounter
--- OUTSIDE RECORDS SUMMARY | 2024-11-17 09:53 | XMS_ITS | Encounter Summary ---
Author Organization [facility] Address [address] [place] [address] Care Team Providers Care Papeterie Table Assembler Name Role Phone Marine Glass MD Primary Care Provider [phone] Encounter Details Date Type Department Care Team (Late st Contact Info) Description 09/26/2022 Abstract [facility] [address] [place] [address] Melchor Rivera DO [address] [place] [address] Social History Tobacco Use Types Packs/Day Years [...] on filedocumented in this encounter Care Teams Papeterie Table Assembler Relationship Specialty Start Date End Date Marine Glass MD PCP - General Family Medicine 09/26/22 documented as of this encounter
--- OUTSIDE RECORDS SUMMARY | 2024-11-17 09:53 | XMS_ITS | Clinical Summary ---
Author Organization [facility] Address [address] [place] [address] Care Team Providers Care Pneumatic Tester Mechanic Name Role Phone Marine Glass MD Primary Care Provider [phone] Allergies Active Allergy Reactions Criticality Noted Date [...] Due Date Last Done Comments Influenza Vaccine (#1) 2025 2, 01/27/2020, 01/20/2019, Additional history exists Pneumococcal Vaccine: 65+ Years Completed 01/05/2018, 02/17/2017, 02/05/2017 Insurance [employer] MEDICARE ADVANTAGE Care Teams Pneumatic Tester Mechanic Relationship Specialty Start Date End Date Marine Glass MD PCP - General Family Medicine 09/26/22
--- OUTSIDE RECORDS SUMMARY | 2024-11-17 09:53 | XMS_ITS | Clinical Summary ---
Author Organization [facility] Address [address], [address] [place] [address] Care Team Providers Care Process Improvement Consultant Name Role Phone Marine Glass MD Primary Care Provider [phone] Allergies Active Allergy Reactions Criticality Noted Date [...] of Treatment Not on file Care Teams Process Improvement Consultant Relationship Specialty Start Date End Date Marine Glass MD PCP - General Family Medicine 10/19/18
--- OUTSIDE RECORDS SUMMARY | 2024-11-17 09:53 | XMS_ITS | Encounter Summary ---
Author Organization [facility] tem Address [facility] [place]-[id number] [address] [place] [address] Care Team Providers Care Manufacturer Agent Name Role Phone Marine Glass MD Primary Care Provider [phone] Encounter Details Date Type Department Care Team (Latest Contact Info) Description 11/08/2024 Results Follow-Up [facility] [address] [place] [address] Sander Pollack RN Comprehensive metabolic panel, Magnesium Social History Tobacco Use Types Packs/Day Years [...] Recorded Purpose and direction in life Unknown 01 /04/2021 Comments No Sex and Gender Information Value [...] documented as of this encounter Care Teams Manufacturer Agent Relationship Specialty Start Date End Date Marine Glass MD [address] [place] [address] PCP - General 07/15/23 documented as of this encounter
--- OUTSIDE RECORDS SUMMARY | 2024-11-17 09:53 | XMS_ITS | Encounter Summary ---
Author Organization [facility] Address [facility] [place][id number] [address] [place] [address] Care Team Providers Care Director Summer Sessions Name Role Phone Marine Glass MD Primary Care Provider [phone] Reason for Visit * Reason Comments Med Refill Encounter Details Date Type Department Care Team (Late st Contact Info) Description 03/28/2019 Refill [facility] [address] [place] [address] Miko Vasquez, ENGINEERING PRODUCTION WORKER-INDEPENDENT LIVING INSTRUCTOR [address] [place] [address] Med Refill Social History Tobacco Use Types [...] encounter Miscellaneous Notes * Telephone Encounter - Divine Kaur APRN-INDEPENDENT LIVING INSTRUCTOR - 03/28/2019 12:42 AM EST Patient needs [...] 39 - 130 U/L 04/07/2019 4:18 PM [facility] AST 23 0 - 41 U/L 04/07/2019 4:18 PM [facility] ALT 14 0 - 31 U/L 04/07/2019 4:18 PM [facility] Total Bilirubin 0.4 0.3 - 1.2 mg/dL 04/07/2019 4:18 PM [facility] Bilirubin, direct 0.1 0.0 - 0.4 mg/dL 04/07/2019 4:18 PM [facility] Albumin 4.0 3.2 - 5.3 g/dL 04/07/2019 4:18 PM [facility] Total Protein 7.3 6.0 - 8.0 g/dL 04/07/2019 4:18 PM [facility] Serum / Unknown 04/07/2019 1 1:04 AM EST 04/07/2019 11:05 AM EST us Divine HANEY LAB BLOOD ORDERABLES Final Result [facility] [address] [place] [address] documented in this encounter Visit Diagnoses Diagnosis Paroxysmal atrial fibrillation ([facility])- Primary Atrial fibrillation documented in this encounter Additional Health Concerns Infection Onset Date Last Indicated Resolved Time COVID-19 Rule-Out 05/20/2021 05/20/2021 05/20/2021 6:32 PM EST COVID-19 Rule-Out 08/02/2021 08/02/2021 08/03/2021 1:10 AM EDT documented as of this encounter Care Teams Director Summer Sessions Relationship Specialty Start Date End Date Marine Glass MD [address] [place] [id number] PCP - General 07/15/23 documented as of this encounter
--- OUTSIDE RECORDS SUMMARY | 2024-11-17 09:53 | XMS_ITS | Encounter Summary ---
Author Organization [facility] Address [facility] [place]-[id number] [address] [place] [address] Care Team Providers Care Chemical Dependency Professional Name Role Phone Marine Glass MD Primary Care Provider [phone] Encounter Details Date Type Department Care Team (Late st Contact Info) Description 07/21/2023 [facility]phone [facility] [address] [place] [address] Ari Leija Social History Tobacco Use Types [...] documented as of this encounter Care Teams Chemical Dependency Professional Relationship Specialty Start Date End Date Marine Glass MD [address] [place] [address] PCP - General 07/15/23 documented as of this encounter
--- OUTSIDE RECORDS SUMMARY | 2024-11-17 09:53 | XMS_ITS | Encounter Summary ---
Author Organization [facility] [facility] Address [facility] [place]-[id number] [address] [place] [address] Care Team Providers Care Rubber Washer Name Role Phone Marine Glass MD Primary Care Provider [phone] Encounter Details Date Type Department Care Team (Late st Contact Info) Description 03/31/2022 Orders Only [facility] [address] [place] [phone] Jacqueline Sparrow, RN Hypokalemia (Primary Dx) Social History Tobacco Use [...] - 5.0 mmol/L 04/14/2022 3:42 PM EST [facility] 04/14/2022 11:1 9 AM EST 04/14/2022 11:20 AM EST us iMke Craft MD LAB BLOOD ORDERABLES Final Re sult [facility] [address] [place] [address] documented in this encounter Visit Diagnoses Diagnosis Hypokalemia- Primary Hypopotassemia documented in this encounter Additional Health Concerns Assessment Noted Time PHQ-9 Depression Total Score: 0 04/24/20 20 10:41 AM EST documented as of this encounter Care Teams Rubber Washer Relationship Specialty Start Date End Date Marine Glass MD [address] [place] [address] PCP - General 07/15/23 documented as of this encounter
--- OUTSIDE RECORDS SUMMARY | 2024-11-17 09:53 | XMS_ITS | Encounter Summary ---
Author Organization [facility] Address [address] [facility] [place] [address] Care Team Providers Care Knit Goods Press Hand Name Role Phone Marine Glass MD Primary Care Provider [phone] Encounter Details Date Type Department Care Team (Late st Contact Info) Description 10/13/2022 Orders Only [facility] [address] [place] [address] Fabi De Anda DDD (degenerative [...] disc documented in this encounter Care Teams Knit Goods Press Hand Relationship Specialty Start Date End Date Marine Glass MD PCP - General Family Medicine 09/26/22 documented as of this encounter
--- OUTSIDE RECORDS SUMMARY | 2024-11-17 09:53 | XMS_ITS | Encounter Summary ---
Author Organization [facility] Address [facility] [place][id number] [address] [place] [address] Care Team Providers Care Jde Developer Name Role Phone Marine Glass MD Primary Care Provider [phone] Reason for Visit * Reason Onset Date Comments Med Refill 11/15/2024 Encounter Details Date Type Department Care Team (Late st Contact Info) Description 11/15/2024 Refill [facility] [address] [place] [phone] Vinicio Causey PA-C [address] [place] [address] Med Refill Social History Tobacco Use Types [...] as of this encounter Visit Diagnoses Diagnosis Paroxysmal atrial fibrillation ([facility]) Atrial fibrillation documented in this encounter Additional Health Concerns Assessment Noted Time PHQ-9 Depression Total Score: 0 04/24/20 20 10:41 AM EST documented as of this encounter Care Teams Jde Developer Relationship Specialty Start Date End Date Marine Glass MD [address] [place] [address] PCP - General 07/15/23 documented as of this encounter
--- OUTSIDE RECORDS SUMMARY | 2024-11-17 09:53 | XMS_ITS | Encounter Summary ---
Author Organization [facility] [employer] Address [facility]-[id number] [address] [place] [address] Care Team Providers Care Supervisor Phosphorus Processing Name Role Phone Marine Glass MD Primary Care Provider [phone] Reason for Visit * Reason Onset Date Comments Pre-op Exam 04/24/2020 Encounter Details Date Type Department Care Team (Late st Contact Info) Description 04/24/2020 [facility] [address] [facility] [address] [place] [address] Irene Short RN Pre-op Exam Social History [...] documented as of this encounter Care Teams Supervisor Phosphorus Processing Relationship Specialty Start Date End Date Marine Glass MD [address] [place] [id number] PCP - General 07/15/23 documented as of this encounter
--- OUTSIDE RECORDS SUMMARY | 2024-11-17 09:53 | XMS_ITS | Encounter Summary ---
Author Organization [facility] Address [facility] [id number] [address] [place] [address] Care Team Providers Care Parts Person Name Role Phone Marine Glass MD Primary Care Provider [phone] Reason for Visit * Reason Onset Date Comments Med Refill 05/26/2022 Encounter Details Date Type Department Care Team (Late st Contact Info) Description 05/26/2022 Refill [facility] [address] [place] [phone] Christine Alejandra, RN DIALYSIS-COMMERCIAL TRUCK DRIVER [address] [place] [address] Med Refill Social History Tobacco Use Types [...] Telephone Encounter - Estela Bueno RN - 05/26/2022 11:52 AM EST Refill addressed on 05/28/22, Pharmacy confirmed receipt documented in this encounter Plan of Treatment Not on file documented as of this encounter Visit Diagnoses Not on filedocumented in this encounter Additional Health Concerns Assessment Noted Time PHQ-9 Depression Total Score: 0 04/24/20 20 10:41 AM EST documented as of this encounter Care Teams Parts Person Relationship Specialty Start Date End Date Marine Glass MD [address] [place] [address] PCP - General 07/15/23 documented as of this encounter
--- OUTSIDE RECORDS SUMMARY | 2024-11-17 09:53 | XMS_ITS | Encounter Summary ---
Author Organization [facility] Address [facility] [place]-[id number] [address] [place] [address] Care Team Providers Care Dental Office Coordinator Name Role Phone Marine Glass MD Primary Care Provider [phone] Reason for Visit * Reason Onset Date Comments Med Refill 04/19/2018 Encounter Details Date Type Department Care Team (Late st Contact Info) Description 04/19/2018 Refill [facility] General Surgery [address] [place] [phone] [place] [address] [place] [id number] Social History Tobacco Use Types Packs/Day Years [...] documented as of this encounter Care Teams Dental Office Coordinator Relationship Specialty Start Date End Date Marine Glass MD [address] [place] [id number] PCP - General 07/15/23 documented as of this encounter
--- OUTSIDE RECORDS SUMMARY | 2024-11-17 09:53 | XMS_ITS | Encounter Summary ---
Author Organization [facility] Address [facility] [place]-[id number] [address] [place] [address] Care Team Providers Care Front Office Supervisor Name Role Phone Marine Glass MD Primary Care Provider [phone] Reason for Visit * Reason Comments Med Refill Encounter Details Date Type Department Care Team (Late st Contact Info) Description 11/08/2024 Refill [facility] [address] [place] [address] Rosangela Montague, EQUIPMENT TECHNICIAN-CLAIM REVIEW MEDICAL DIRECTOR [address] [place] [address] Med Refill Social History Tobacco Use Types [...] encounter Miscellaneous Notes * Telephone Encounter - Kadie Adler RN - 11/08/2024 12:18 AM EDT OV 11/08/24 CMP, CBC 11/08/24 documented in this encounter Plan of Treatment Not on file documented as of this encounter Visit Diagnoses Diagnosis Paroxysmal atrial fibrillation ([facility]-H[facility]) Atrial fibrillation documented in this encounter Additional Health Concerns Assessment Noted Time PHQ-9 Depression Total Score: 0 04/24/20 20 10:41 AM EST documented as of this encounter Care Teams Front Office Supervisor Relationship Specialty Start Date End Date Marine Glass MD [address] [place] [address] PCP - General 07/15/23 documented as of this encounter
--- OUTSIDE RECORDS SUMMARY | 2024-11-17 09:53 | XMS_ITS | Clinical Summary ---
Author Organization [facility] Address [address] [place], [place] [id number] Care Team Providers Care Bullet Assembly Press Operator Name Role Phone Marine Glass MD Primary Care Provider [phone] Allergies Active Allergy Reactions Criticality Noted Date [...] original vaccine, a ge 12+ yr, monovalent ([employer] - PURPLE TOP) 06/20/2020,05/18/2020 influenza (HD-IIV3) vaccine, [...] N ot on file 05/17/2022 Data from: https://www.neighborhoodatlas.medicine.[facility].edu/. Last address used for calculation [address] 05/17/2022 Comments No Sex and [...] 05/18/2020 Advance Directive Discussion 05/04/2024 Influenza Vaccine (#1) 2025 01/20/2019, 2017 Hepatitis C Screening Completed 10/21/2018 Mammogram Screening [...] - 8.0 g/dL 10/08/2020 1:56 PM [address]T [facility] Albumin 4.3 3.9 - 4.9 g/dL 10/08/2020 1:56 [address] [facility] Calcium 10.4(H) 8.5 - 10.2 mg/dL 10/08/2020 1:[address] [facility] Bilirubin, Total 0.2 0.2 - 1.3 mg/dL 10/08/2020 1:[address] [facility] Alkaline Phosphatase 65 34 - 123 U/L 10/08/2020 1:56 PM ED[address] [facility] AST 24 13 - 35 U/L 10/08/2020 1:56 PM ED[address] [facility] Glucose 113(H) 74 - 99 mg/dL 10/08/2020 1:56 PM EDT [facility] Comment: The [place] Diabetes Association (ADA) provides guidance for cutoff [...] Standards of Medical Care in Diabetes 2016, [place] Diabetes Association. Diabetes Care. 2016.39(Suppl 1). BUN 35(H) 7 - 21 mg/dL 10/08/2020 1:56 PM EDT [facility] Creatinine 1.05(H) 0.58 - 0.96 mg/dL 10/08/2020 1:56 PM EDT [facility] Sodium 140 136 - 144 mmol/L 10/08/2020 1:[address] [facility] Potassium 3.8 3.7 - 5.1 mmol/L 10/08/2020 1:56 [address] [facility] Chloride 103 97 - 105 mmol/L 10/08/2020 1:56 PM EDT [facility] CO2 28 22 - 30 mmol/L 10/08/2020 1:56 [address] [facility] Anion Gap 9 9 - 18 mmol/L 10/08/2020 1:56 PM EDT [facility] ALT 13 7 - 38 U/L 10/08/2020 1:56 PM ED[address] [facility] eGFR- >60 10/08/2020 1:56 PM EDT [facility] eGFR-All Other Races 51 . 10/08/2020 1:56 PM EDT [facility] Comment: eGFR (Estimated GFR) Units of measure: [...] us Andrew Choi MD LABORATORY Final Result [address] [address] [facility] Cancer [address] from Last 3 Months or Most Recently Relevant to Health Maintenance Insurance [employer] MEDICARE Care Teams Bullet Assembly Press Operator Relationship Specialty Start Date End Date Marine Glass MD [address] [place] [address] PCP - General Family Medicine 11/26/15
--- OUTSIDE RECORDS SUMMARY | 2024-11-17 09:54 | XMS_ITS | Encounter Summary ---
Author Organization [facility] Address [facility] [id number] [address] [place] [address] Care Team Providers Care Brand Attendant Name Role Phone Marine Glass MD Primary Care Provider [phone] Reason for Visit * Reason Onset Date Comments Results 10/26/2017 Encounter Details Date Type Department Care Team (Late st Contact Info) Description 10/26/2017 Telephone [facility] [address] [place] [address] Jacqueline Sparrow, RICARDO Results Social [...] 05/20/2021 6:32 PM EST COVID-19 Rule-Out 08/02/2021 08/02/202108/03/2021 1:10 AM EDT documented as of this encounter Care Teams Brand Attendant Relationship Specialty Start Date End Date Marine Glass MD [address] [place] [id number] PCP - General 07/15/23 documented as of this encounter
--- NOTE | 2024-11-17 10:14 | PM.CN ---
Consult Note: HPI Data of Consult Patient: known to practice within the last 3 years Requesting Physician: Larissa Turner NP Primary Care Provider: Marine Glass MD Consult Narrative Reason for consult: right low back pain Narrative: Bettie Burns a 79 year old female presents for evaluation of chronic low back and SIJ pain, notes worsening right low back pain since last visit. has failed to benefit from > 6 weeks of PT/HEP, heat, ice, tylenol, cannot take NSAIds on apixaban. denies falls or injury. pain today 5/10 throbbing aching increasing to 7/10 with any movement, standing, walking, lifting, bending, and sleep. pt noting significant improvement with recent left SIJ injection, >50% improvement ongoing. cc:: CC: Larissa Turner NP Review of Systems ROS Status of ROS 10 or more systems reviewed and unremarkable except as noted in history and below [facility] Medical History (Updated 10/26/24 @ 08:55 by Larissa Turner NP) Neck pain �M54.2 - Cervicalgia (ICD-10) Upper back pain �M54.9 - Dorsalgia, unspecified (ICD-10) Low back pain �M54.50 - Low back pain, unspecified (ICD-10) Osteoarthritis �M19.90 - Unspecified osteoarthritis, unspecified site (ICD-10) H/O malignant neoplasm of breast �Z85.3 - Personal history of malignant neoplasm of breast (ICD-10) Hearing deficit �H91.90 - Unspecified hearing loss, unspecified ear (ICD-10) Former smoker �Z87.891 - Personal history of nicotine dependence (ICD-10) Hypertension �I10 - Essential (primary) hypertension (ICD-10) Atrial fibrillation �I48.91 - Unspecified atrial fibrillation (ICD-10) Cataract �H26.9 - Unspecified cataract (ICD-10) Surgical History Status post hip surgery �Z98.890 - Other specified postprocedural states (ICD-10) H/O total hip arthroplasty �Z96.649 - Presence of unspecified artificial hip joint (ICD-10) H/O cardiac catheterization �Z98.890 - Other specified postprocedural states (ICD-10) History of cholecystectomy �Z90.49 - Acquired absence of other specified parts of digestive tract (ICD-10) H/O: hysterectomy �Z90.710 - Acquired absence of both cervix and uterus (ICD-10) H/O foot surgery �Z98.890 - Other specified postprocedural states (ICD-10) H/O eye surgery �Z98.890 - Other specified postprocedural states (ICD-10) H/O shoulder surgery �Z98.890 - Other specified postprocedural states (ICD-10) H/O breast surgery �Z98.890 - Other specified postprocedural states (ICD-10) Social History Smoking status: Never smoker Meds Home Medications and Allergies Home Medications �Medication �Instructions �Recorded �Confirmed �Type apixaban 5 mg tablet (Eliquis) 5 mg PO BID 10/28/22 10/31/24 History atenolol 50 mg tablet 75 mg PO DAILY 10/28/22 10/31/24 History hydrochlorothiazide 25 mg tablet 25 mg PO DAILY 10/28/22 10/31/24 History lisinopril 20 mg tablet 20 mg PO DAILY 10/28/22 10/31/24 History neuveria vitamin DAILY 10/28/22 History trospium 20 mg tablet 20 mg PO Q12H 04/02/23 10/31/24 History aspirin 500 mg tablet (Mckenna 500 mg PO DAILY PRN pain 11/04/23 10/31/24 History Advanced) cyclosporine 0.05 % eye drops in a drp ophthalmic (eye) 11/04/23 History dropperette omeprazole 40 mg capsule,delayed 40 mg PO DAILY 11/04/23 10/31/24 History release vit C 250 mg-vit E 90 mg-zinc 40 1 tab PO BID 11/04/23 10/31/24 History mg-copper 1 [id number] capsule (PreserVision AREDS-2) flecainide 50 mg tablet mg 12/14/23 History potassium chloride 10 mEq meq PO 12/14/23 History tablet,extended release methocarbamol 500 mg tablet 500 mg PO BID PRN spasms #60 tabs 09/01/24 10/31/24 Rx methylprednisolone 4 mg tablets in 4 mg PO DAILY #21 ea 10/26/24 10/31/24 Rx a dose pack (Medrol (Ryan)) magnesium 200 mg tablet 200 mg PO DAILY 10/31/24 10/31/24 History Allergies Allergy/AdvReac Type Severity Reaction Status Date / Time acetaminophen (From Vicodin) Allergy Severe itching Verified 10/31/24 07:06 hydrocodone (From Vicodin) Allergy Severe itching Verified 10/31/24 07:06 codeine Allergy Unknown Hives Verified 10/31/24 07:06 levofloxacin (From Levaquin) Allergy Unknown uticaria Verified 10/31/24 07:06 morphine Allergy Unknown uticaria Verified 10/31/24 07:06 Penicillins Allergy Unknown uticaria Verified 10/31/24 07:06 tramadol Allergy Unknown uticaria Verified 10/31/24 07:06 cyclobenzaprine Allergy Rash Verified 10/31/24 07:06 Exam Constitutional Documenting provider has reviewed patient's vital signs: yes Common normals: no apparent distress, oriented x3, healthy appearing, alert and well nourished General appearance: cooperative HENMT Common normals: normocephalic, hearing grossly normal bilaterally and moist oral mucous membranes Head and scalp: normocephalic Eye Common normals: PERRL Pupil: PERRL Neck & C-Spine Common normals: full ROM General: normal visual inspection Chest Common normals: inspection of chest normal Respiratory Common normals: normal respiratory effort, no retractions and no use of accessory muscles Back & Pelvis Lumbar spine/lower back: pain with ROM and lumbar spinal tenderness Sacroiliac joints: SI joints normal Other: sensation intact BLE strength intact BLE left sij negative jovanna(patricks), gaenslens, thigh thrust, compression test Extremity Common normals: normal to inspection and full ROM Neuro Common normals: oriented x3 Sensorium/orientation: alert Psych Common normals: mental status grossly normal, thought process normal, cooperative, affect normal, speech normal and activity/motor behavior normal Speech: normal speech Thought process: normal thought process Results Additional Findings Additional findings: If on a controlled substance or opioids, I have checked an [place] report on this patient and there are no aberrancies noted in the prescribing history.��If on a controlled substance or opioid a drug screen was completed and reviewed within the last year, and if there has not been a drug screen completed we ordered one today to monitor higher risk, state monitored pain medication use. As part of providing excellent, safe, comprehensive care, the following was completed at our patient's visit: 1. A medication reconciliation and review to ensure accurate knowledge of current/active medications, including asking our patients to inform us about any [id number] medications or herbal remedies/nutritional supplements/alternative remedies. 2. A review to specifically ensure our patients have had annual screening for screening for depression, screening for tobacco use, and screening for unhealthy alcohol use. For concerning screenings had a discussion with the patient, provided patient education, and recommended follow-up with primary care provider when appropriate. If patient noted with a risk of falling, they received education on strength, gait, and balance training to prevent future risk of falling. Portions of this note may have been carried over from the previous visit and updated as appropriate. Please note this office utilizes paper charting in addition to the electronic medical record. A list of current medications, vitals, and PMH is available there as the clinical staff outside of myself do not have access to PDV charting during the clinic day operations. As part of providing quality comprehensive care the current medications, vitals, and PMH were reviewed in the paper chart. Assessment and Plan Assessment and Plan (1) Sacroiliitis: Assessment and Plan: 10/31/24 left SIJ injection >50% improvement ongoing (2) Lumbar spondylosis: Assessment and Plan: 01/24 right L4-5 L5-S1 Facet RFA >50% improvement greater than 12 months in facet mediated low back pain The patient has had over 3 months of moderate to severe low back pain with functional impairment and inadequate response to conservative care including NSAIDS (unless there are contraindication such as concurrent blood thinners), multiple oral or topical pain medications, and home exercise program/physical therapy.� Patient has completed >6 weeks of guided home exercise program and/or formal physical therapy program without relief of their symptoms.� The Oswestry Disability Index was completed, and the patient scored a %.� The patient noted the following:�� moderate to severe pain impacting standing, walking, sleeping, sitting, social life, travel We discussed the risks and benefits of the procedure with the patient, and we are NOT planning on using sedation as outlined in the guidelines from Medicare unless there is a documented reason that sedation would be strongly recommended.�� The procedure will be completed with fluoroscopic guidance.� (3) Lumbar stenosis with neurogenic claudication: (4) Myofascial pain: Plan repeat right L4-5 L5-S1 facet RFA for facet mediated low back pain increase methocarbamol 500-100mg BID PRN pain/spasms continue otc tylenol f/u 1 month after RFA complete
== END 2024-11-17 09:51 | disposition home or self-care (01) ==
LOC: PM 09:51
PROVIDERS: PCP Family Medicine; Visit Provider Nurse Practitioner
DX: M46.1 Sacroiliitis, not elsewhere classified (principal); M47.816 Spondylosis without myelopathy or radiculopathy, lumbar region; M48.062 Spinal stenosis, lumbar region with neurogenic claudication; M79.18 Myalgia, other site
CPT/HCPCS: G0463

== ENCOUNTER 2024-12-05 06:54 | Day surgery (SDC) | payer MEDICARE, SELFPAY ==
--- OUTSIDE RECORDS SUMMARY | 2024-12-05 06:58 | XMS_ITS | CCD ---
Author Organization [facility] Care Team Providers Care Nurse Head Name Role Phone PHYSICIAN, DEFAULT Unavailable Unavailable PHYSICIAN, DEFAULT Unavailable Unavailable Elliot Starks MD Primary Care Provider [phone] ELLIOT STARKS Primary Care Unavailable ANETA [...] Care Provider MD Elliot Starks Attending Provider [phone] Elliot Starks Admitting Unavailable Elliot Starks Attending Unavailable ELLIOT STARKS Primary Care Physician Elliot Starks MD Primary Care Provider Melchor Rivera Admitting Unavail able Melchor Rivera Attending Unavail able Elliot Starks Primary Care Unavailable Ricci Perez Consulting Elliot Bailey MD Primary Care Provider Elliot Starks MD Primary Care Provider [phone] Elliot Starks MD Primary Care Provider Alfreda Miller Attending Unavailable Maria E Osman Attending Unavailable Maria E Osman Attending Unavailable Maria E Osman Admitting Unavailable Maria E Osman Attending Unavailable Maria E Osman Admitting Unavailable ELLIOT STARKS Primary Care Unavailable SELF, SELF Referring Unavailable DIVINE DOUGHERTY Attending Unavailable BROCWELL, DIVINE M Attending Unavailable [...] Unavailable Elliot Starks MD Primary Care Provider [phone] Alfreda Miller Attending Unavailable Jean Pierre MARTE Admitting Unavailable Jean Pierre MARTE Attending Unavailable Maria E Osman Attending Unavailable Alfreda Miller Referring Unavailable Maria E Osman Attending Unavailable Alfreda Miller Referring Unavailable Alfreda Miller Admitting Unavailable Alfreda Miller Attending Unavailable RADHA MART Attending Unavailable RAUDEL, ELLIOT E Referring Unavailable STARKS, ELLIOT E Primary Care Unavailable BIALECKI, DIVINE Referring Unavailable STARKS, ELLIOT E Primary Care Unavailable ROSANGELA MONTAGUE Referring Unavailable STARKS, ELLIOT E Primary Care Unavailable Agusto VILLEGAS, Andrius Dietz Attending Unavailable Agusto VILLEGAS, Andrius Dietz Attending Unavailable Agusto VILLEGAS, Andrius J Luis Attending Unavailable Agusto VILLEGAS, Andrzejrius Dietz Attending Unavailable Elliot Starks MD Primary Care Provider Elliot Starks MD Attending Provider [phone] Allergies Allergy Classification Reported Allergen(s) Allergy Type Date of Onset Reaction(s) Facility (20 sources) Acetaminophen / HYDROcodone; Translations: [HYDROCODONE-ACET AMINOPHEN] Drug Allergy 03-19-20 17 Unknown, Itching, Nausea Only, Rash [facility] (20 sources) Baclofen; Translations: [baclofen] Drug Allergy 03-19-20 17 Unknown, Itching, Rash [facility] (20 sources) Codeine; Translations: [codeine] Drug Allergy 08-09-19 09 Unknown, Itching, Rash [facility] (20 sources) levoFLOXacin; Translations: [levofloxacin] Drug Allergy 03-19-20 17 Unknown, Itching, Nausea Only, Rash [facility] (20 sources) Morphine; Translations: [morphine] [facility]-09-19 [facility] ox[facility] Drug Allergy 12-03-19 16 [facility] (11 sources) Penicillins; Translations: [PENICILLINS] Drug Allergy 12-03-19 16 Hives, Rash [facility] (1 source) Baclofen Drug Allergy [facility] (1 source) Codeine Drug Allergy [facility] (17 sources) levoFLOXacin; Translations: [Levaquin] Drug Allergy Unknown [facility] (1 source) Morphine Drug Allergy 05-04-18 94 [facility] (1 source) oxyCODONE Drug Allergy 05-04-19 05 [facility] (1 source) Penicillins Drug allergy (disorder) 05-04-18 93 [facility] (6 sources) traMADol; Translations: [Ultram] Drug Allergy [facility] (11 sources) Codeine Drug Allergy Unknown [facility] Other (20 sources) Penicillin; Translations: [penicillin] Drug Allergy Unknown [facility] (20 sources) traMADol; Translations: [tramadol] Drug Allergy 07-13-19 20 Itching [facility] (20 sources) zolpidem; Translations: [zolpidem] Drug Allergy 07-04-19 23 Unknown, Hives [facility] (11 sources) Penicillins Drug Allergy 12-03-19 16 Hives, Rash [facility] (1 source) Non-steroidal anti-inflammatory agent Drug allergy 02-02-20 13 Unknown [facility] Other (20 sources) sulfADIAZINE; Translations: [SULFADIAZINE] Drug Allergy 07-04-19 23 Comment:[facility] (1 source) Ultram *ANALGESICS - OPIOID* Propensity to adverse reactions Unknown [facility] Other (1 source) Vioxx *ANALGESICS - ANTI-INFLAMMATORY * Propensity to adverse reactions Unknown [facility] Other (1 source) Penicillin G Benzathine & Proc Drug allergy Unknown [facility] Other (1 source) Morphine Sulfate (Concentrate) *ANALGESICS - OPIOI Propensity to adverse reactions Unknown [facility] Other (1 source) Allergies Reconciled Propensity to adverse reactions Unknown [facility] Other (1 source) patient allergy list reviewed by nurse or physicia Propensity to adverse reactions 02-02-20 13 Comment:Done [facility] Other (1 source) Vicodin *ANALGESICS - OPIOID* Propensity to adverse reactions Unknown [facility] Other (6 sources) calcitonin Drug allergy 10-28-19 24 Unknown, [facility] (12 sources) Penicillins Propensity to adverse reactions to drug 05-14-19 24 [facility] (1 source) Acetaminophen / HYDROcodone; Translations: [Vicodin] Drug Allergy [facility] (1 source) Adhesive Tape; Translations: [Tape] Propensity to adverse reactions (disorder) [facility] (10 sources) Latex Propensity to adverse reactions to drug 06-19-19 24 [facility] (10 sources) *Adhesive Tape Propensity to adverse reactions 07-04-19 23 [facility] (8 sources) Cephalexin Drug Allergy 07-09-19 24 Nausea Only, Dry Mouth, Flushing [facility] (5 sources) Acetaminophen Drug Allergy 10-28-[address] [facility] (5 sources) HYDROcodone Drug Allergy 10-28-[address] [facility] (5 sources) Penicillin G Benzathine Allergy to substance 10-28-[address] [facility] (20 sources) rofecoxib; Translations: [ROFECOXIB] Drug Allergy 07-04-[address] [facility] (19 sources) Adhesive agent; Translations: [ADHESIVE] Propensity to adverse reactions to drug 07-04-19 23 [facility] (19 sources) penicillin G benzathine / penicillin G procaine; Translations: [PENICILLIN G BENZATHIN,PROCAIN ] Drug Allergy 07-04-19 [facility] (4 sources) Morphine; Translations: [Morphine Sulfate] Drug Allergy [facility] (4 sources) zolpidem; Translations: [Ambien] Drug Allergy [facility] (6 sources) Penicillins Propensity to adverse reactions to drug 12-03-19 16 Rash, Hives [facility] Medications Current Medications Medication Drug Class(es) Dates Sig (Normalized) Sig (Original) apixaban 5 mg oral tablet (20 sources) Factor Xa Inhibitor Start: 11-16-2024 ELIQUIS 5 mg tablet Indications: Paroxysmal atrial fibrillation (CMS-HCC) TAKE 1 TABLET TWICE A DAY (NEED ALL ANNUAL LABS DRAWN FOR FURTHER REFILLS, 08/10/24) 180 tablet 3 11/16/2024 Active Start: 07-07-2023 End: 07-12-2023 take 2.5 [...] MG PO Once June 24, 2023 1:00am April 30, 2024 11:34am Start: 08-31-2017 End: 11-16-2024 take 1 tablet by mouth twice daily take 2 tablets by [facility] every twelve hours apixaban 2.5 MG tablet Take 2 tablets by mouth every 12 hours. Active apixaban 2.5 MG tablet Take by mouth every 12 hours. 0 Active Comment on above: Take 5 mg by mouth t wice daily. ascorbic acid 226 mg / beta carotene 23100 unt / cuprous oxide 0.8 mg / dl-alpha tocopheryl acetate 200 unt / zinc oxide 34.8 mg oral capsule (12 sources) Vitamin C Start: 10-28-2023 take 1 capsule by mouth in the morning vitamins A,C,H-urym-scrtez (ICAPS AREDS) 4,296 mcg-226 mg-90 mg capsule Take 1 capsule by mouth in the morning and 1 capsule before bedtime. 10/28/2023 Active Start: 10-28-2023 take 1 capsule by mouth twice daily atenolol 50 mg oral tablet (20 sources) beta-Adrenergic Eli Start: 2023 End: 2023 take 75 mg by mouth once daily 75 mg, Oral, DAILY, First dose on Thu07/08/23 at 0900, Until Discontinued Start: 06-24-2023 End: 11-08-2024 take 1 tablet by mouth in the morning, then take 1 tablet by mouth at bedtime atenoloL (TENORMIN) 50 mg tablet Take 1 tablet (50 mg total) by mouth in the morning and 1 tablet (50 mg total) before bedtime. 11/08/2024 Active Start: 09-10-2022 End: 07-06-2024 take 1.5 tablets [...] take 1 tablet by mouth once daily Start: 05-27-2023 BACLOFEN 10 MG TABLET BACLOFEN 10 MG TABLET Start Date: 05/27/23 Status: Ordered Repeat number: 1 Start: 05-27-2023 BACLOFEN 10 MG TABLET BACLOFEN 10 MG TABLET Start Date: 05/27/23 Status: Ordered End: 11-08-2024 take 1 tablet by mouth three times daily as needed baclofen (LIORESAL) 20 mg tablet Take 1 tablet (20 mg total) by mouth 3 (three) times a day. PRN 11/08/2024 Discontinued (Therapy completed) take 1 tablet by mirza th three [...] as needed. cycloSPORINE 0.5 mg/ml ophthalmic suspension (5 sources) Calcineurin Inhibitor Immunosuppressant Start: 10-28-2023 take 0.05 drop(s) into the eye(s) every twelve hours Start: 10-28-2023 take 0.05 drop(s) in to the eye(s) every twelve hours Cyclosporine (Restasis [...] (10 sources) Estrogen Start: 09-19-2024 Estrace 0.1 mg /g Cream See Instructions, 42.5 gm, Refill(s) 2, Apply pea sized amount to urethra/vagina 3x a week for 1 month, then 2x a week afterwards, [facility]/pharmacy #[id number], 165, cm, 06/22/24 13:05:00 EST, Height/Length [...] x 1 month, then 2x/week for maintainence, [facility]/pharmacy #[id number], 165, cm, 02/11/23 10:41:00 EDT, Height/Length Dosing, 77.5, kg, 02/11/23 10:41:00 EDT, Weight Dosing 02/11/2023 Active Start: 02-11-2023 Estrace 0.1 mg /g Cream See Instructions, 42.5 gm, Refill(s) 3, apply pea size amount to urethra/inner vagina 3x/week x 1 month, then 2x/week for maintainence, [facility]/pharmacy #[id number], 165, cm, 02/11/23 10:41:00 EDT, [...] bedtime. 180 tablet 1 07/28/2024 Active Start: 10-06-2017 flecainide (TA MBOCOR) 100 mg tablet Take 100 mg by mouth. 0 10/06/2017 Active Comment on above: Take 100 mg by mouth . hydroCHLOROthiazide 25 mg oral tablet (20 sources) Thiazide Diuretic Start: 2022 End: 2024 hydroCHLOROthiazide (HYDRODIURIL) 25 mg tablet TAKE 1 TABLET DAILY 90 tablet 11/03/2024 Active hydroCHLOROthiazide 25 mg / losartan potassium [...] sources) Angiotensin Converting Enzyme Inhibitor Start: 2023 Start: 03-21-2024 Lisinopril 20 mg tablet Active 0 .ROUTE .COMPLEX 90 March 21, 2024 4:38pm TAKE 1 TABLET DAILY Start: 02-22-2019 End: 03-21-2024 take 1 tablet by mouth once daily Lisinopril 20 mg tablet Discontinued 20 MG PO Daily June 24, 2023 1:00am March 21, 2024 5:38pm take 1 tablet by mirza th once [...] Daily, # 30 tab(s), Refills(s) 11, Pharmacy: [facility]/pharmacy #[id number], 165, cm, 02/11/23 10:41:00 EDT, [...] Start Date: 06/22/24 Status: Ordered nitrofurantoin, macrocrystals 100 mg oral capsule (1 source) Nitrofuran Antibacterial Start: 11-29-2024 take 1 capsule by mouth twice daily at mealtime Nitrofurantoin Macrocrystal 100 mg capsule Active 100 MG PO Twice daily November 29, 2024 12:00am must administer with a meal/food Complies with drug therapy nitrofurantoin, macrocrystals 25 mg / nitrofurantoin, monohydrate 75 mg oral capsule (4 sources) Nitrofuran Antibacterial Start: 06-23-2022 take 1 capsule by mouth every twelve hours Nitrofurantoin Monohyd Macro 100 MG 1 capsule with food Orally every 12 hrs for 7 days Jun, Active NON FORMULARY (18 sources) NON FORMULARY Me d Name:Neuveria vitamin 1 qd Active NON FORMULARY Me d Name:Neuveria vitamin 1 qd 0 Active NON-FORMULARY (8 sources) NON-FORMULARY Me d Name:Neuveria vitamin 1 qd Active omeprazole 40 mg delayed release oral capsule (20 sources) Proton Pump Inhibitor Start: 04-30-2024 omeprazole 40 mg Cap-DR 40 mg = 1 cap(s), Refills(s) 0 Start Date: 06/22/24 Status: Ordered Repeat number: 1 Start: 12-22-2023 End: 04-30-2024 Omeprazole 40 mg capsule,del ayed release(DR/EC) Discontinued 0 .ROUTE .COMPLEX 180 December 22, 2023 11:13am April 30, 2024 11:34am TAKE 2 CAPSULES DAILY Start: 12-22-2023 Omeprazole Act david 0 .ROUTE [...] extended release oral tablet (20 sources) Start: 06-22-2024 Potassium Chloride (Lvk-Jfmc-Bco 10) 10 mEq oral tablet, extended release 10 mEq = 1 tab(s), Refills(s) 0 Start Date: 06/22/24 Status: Ordered Repeat number: 1 Start: 06-22-2024 Potassium Chlo ride (Duu-Rvyy-Ybl 10) 10 mEq oral tablet, extended release 10 mEq = 1 tab(s), Refills(s) 0 Start Date: 06/22/24 Status: Ordered Start: 10-26-2023 End: 11-29-2024 potassium chloride (K-TAB,KL OR-CON) 10 MEQ CR tablet TAKE 1 TABLET IN THE MORNING 90 tablet 3 11/29/2024 Active Start: 03-31-2022 End: 10-19-2023 10 mEq, [...] by mouth once as needed for headache Start: 09-12-2016 SUMAtriptan 25 mg Tab 25 mg = 1 tab(s), Refills(s) 0 Start Date: 06/22/24 Status: Ordered Repeat number: 1 Comment on above: Take 25 mg by mouth as needed. traZODone hydrochloride 50 mg oral tablet (11 sources) Serotonin Reuptake Inhibitor Start: 05-09-19 End: 11-16-19 take 1 tablet by mouth once daily at bedtime as needed triamcinolone acetonide 1 mg/ml topical cream (2 sources) Corticosteroid Start: 10-31-19 Triamcinolone Acetonide 0.1 % 1 application Externally Twice a day for 7 days Oct, Active trospium chloride 20 mg oral tablet (20 sources) Cholinergic Muscarinic Antagonist Start: 06-29-19 take 1 tablet by mouth twice daily Start: 06-24-2023 End: 06-29-2023 take 1 tablet by mouth once daily Trospium 20 mg tablet Discontinued 20 MG PO Daily June 24, 2023 1:00am June 29, 2023 2:33pm Start: 06-24-2023 End: 06-29-2023 Trospium Discontinued MG PO June 24, 2023 1:00am June 29, 2023 2:33pm Start: 05-27-2023 End: 06-29-2023 take 1 mg by mouth every twenty-four hours Trospium 60 mg capsule,extended release 24hr Discontinued MG PO June 24, 2023 1:00am June 29, 2023 2:33pm Trospium Chlorid e Active Vitamins A,C,T-Qmbp-Howftv (Preservision Areds) 4,296 mcg-226 mg-90 mg capsule (4 sources) Start: 10-28-2023 take 1 capsule by mouth twice daily Vitamins A,C,X-Pkgd-Mltbxp (Preservision Areds) 4,296 mcg-226 mg-90 mg capsule Active 1 CAP PO Twice daily October 27, 2023 11:00pm Start: 10-28-2023 take 1 capsule by [facility] twice daily Vitamins A,C,V-Ugkg-Izcphx (Preservision Areds) 4,296 mcg-226 mg-90 mg capsule [...] Start: 07-07-2023 take 2 tablets by mo ut every four hours as needed Acetaminophen 325 [...] at Discharge) azithromycin 250 mg oral tablet (8 sources) Macrolide Antimicrobial Start: 04-30-2024 End: 05-09-2024 Azithromycin 250 mg tablet Discontinued 0 PO .COMPLEX April 30, 2024 1:00am May 09, 2024 10:21am For 250 mg dose pack: take 500 [...] Post-op/Post-Proc docusate sodium 50 mg / sennosides, custodial 8.6 mg oral tablet (1 source) Start: [...] on Thu07/07/23 at 1637, Until Thu07/08/23 at 192, Severe Pain, Post-op/Post-Proc ketorolac tromethamine 10 mg oral tablet (5 sources) Nonsteroidal Anti-inflammatory Drug, Cyclooxygenase Inhibitor Start: 06-24-2023 End: 06-29-2023 take 1 tablet by mouth once Ketorolac 10 mg tablet Discontinued 10 MG PO Once June 24, 2023 1:00am June 29, 2023 2:31pm methylPREDNISolone 4 mg oral tablet (5 sources) Corticosteroid Start: 06-24-2023 End: 06-29-2023 Methylprednisolone 4 mg tablets,dose pack Discontinued 4 MG PO .COMPLEX June 24, 2023 1:00am June 29, 2023 2:31pm 4 mg orally; Omeprazole 40 mg capsule,delayed [...] citrate 100 mg extended release oral tablet (5 sources) Muscle Relaxant Start: 06-24-2023 End: 06-29-2023 Orphenadrine Citrate 100 mg tablet extended release Discontinued MG PO June 24, 2023 1:00am June 29, 2023 2:32pm Start: 06-24-2023 End: 06-29-2023 Orphenadrine Citrate Discont [...] MG Pack Take by mouth. 0 Active predniSONE 20 mg oral tablet (3 sources) Start: 04-30-2024 End: 05-09-2024 take 1 tablet by mouth once daily Prednisone 20 mg tablet Discontinued 20 MG PO Daily 3 April 30, 2024 1:00am May 09, 2024 10:21am ROPivacaine (NAROPIN) 1 % 400 mg, EPINEPHrine [...] mixed by pharmacy NOT for IV use, Intra-op/Intra-Pro c 1000 ml sodium chloride 9 mg/ml injection [...] capsule (20 sources) Benzodiazepine Start: 08-23-2018 End: 11-08-2024 take 1 capsule by mouth once daily at bedtime Temazepam 30 mg capsule Discontinued 30 MG PO Daily at bedtime February 01, 2024 11:46am February 15, 2024 9:27am take 2 capsules by m outh at [...] Disorder of rectum 02-05-2023 Episodic Anxiety disorders (4 sources) Acute stress disorder; Translations: [Acute stress [...] 05-06-2023 Chronic Other aftercare (1 source) Other 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 servicer (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) drug therapy; Translations: [OTH DETENTION CURRENT DRUG THERAPY] Onset: 06-11-2022 Episodic Other aftercare (3 sources) Long-term current use of anticoagulant; Translations: [watermaster (current) use of anticoagulants] Onset: 02-11-2023 Episodic [...] Onset: 06-11-2022 Episodic Other nervous system disorders (6 sources) Hip pain; Translations: [Other acute postprocedural [...] 05-10-2015 Episodic Otitis media and related conditions (8 sources) Acute bilateral otitis media ; Translations: [...] UTERUS] Onset: 06-11-2022 Episodic Residual codes; unclassified (16 sources) Insomnia; Translations: [Insomnia, unspecified] 08-18-2023 Episodic [...] Retinal detachments; defects; vascular occlusion; and retinopathy (4 sources) Degenerative disorder of macula ; Translations: [...] W/AND (SUSP) EXPOS COVID-19] Onset: 06-11-2022 Unclassified (7 sources) Drug therapy finding 02-11-2023 Urinary tract infections (20 sources) Urinary tract infection, site not specified; Translations: [Acute urinary tract infection] Onset: 06-11-2022 Episodic Viral infection (12 sources) Disease caused by 2019-nCoV; Translations: [COVID-19] Past or Other Problems Problem Classification Problem Date Documented Da te Episodic/Chronic Cardiac dysrhythmias (20 sources) Palpitations; Translations: [Palpitations] Onset: 06-30-2018 08-16-2021 Episodic Coronary atherosclerosis and other heart disease (20 sources) Coronary arteriosclerosis; Translations: [Atherosclerotic heart disease of [place] coronary artery without angina pectoris] Onset: 07-29-2021 Resolved: 08-16-2021 06-02-2023 Chronic Gastroduodenal ulcer (except hemorrhage) (2 sources) Personal history of peptic ulcer disease; Translations: [Acute gastric ulcer without hemorrhage, without perforation AND without obstruction] Onset: 05-11-2017 Episodic Mood disorders (18 sources) Mood disorders Onset: 04-24-2020 04-24-2020 Other [...] Test Name Value Interpretation Reference Range Facility CBC (NO DIFF)on 11-09-2024 Erythrocyte distribution width (RBC) [Ratio] 12.8 % Normal 11.5-15 [facility] Comment on above: Performed By: #### C BC #### [facility] ([facility]) [address] [place] [address] VIR Hematocrit (Bld) [Volume fraction] 40.0 % Normal 35-47 [facility] Comment on above: Performed By: #### C BC #### [facility] ([facility]) [address] [place] [address] VIR Hemoglobin (Bld) [Mass/Vol] 13.6 g/dL Normal 11.7-15.5 [facility] Comment on above: Performed By: #### C BC #### [facility] ([facility]) [address] [place] [address] VIR MCH (RBC) [Entitic mass] 32.7 pg Normal 27-34 [facility] Comment on above: Performed By: #### C BC #### [facility] ([facility]) [address] [place] [address] VIR MCHC (RBC) [Mass/Vol] 34.1 g/dL Normal 32-36 [facility] Comment on above: Performed By: #### C BC #### [facility] ([facility]) [address] [place] [address] VIR MCV (RBC) [Entitic vol] 96 fL Normal 80-100 [facility] Comment on above: Performed By: #### C BC #### [facility] ([facility]) [address] [place] [address] VIR Platelet mean volume (Bld) [Entitic vol] 7.0 fL Normal 7-12 [facility] Comment on above: Performed By: #### C BC #### [facility] ([facility]) [address] [place] [address] VIR Platelets (Bld) [#/Vol] 206 10*3/uL Normal 150-450 [facility] Comment on above: Performed By: #### C BC #### [facility] ([facility]) [address] [place] [address] VIR RBC COUNT 4.16 X10E12/L Normal 3.8-5.2 [facility] Comment on above: Performed By: #### C BC #### [facility] ([facility]) [address] [place] [address] VIR WBC (Bld) [#/Vol] 5.1 10*3/uL Normal 4-11 [facility] Comment on above: Performed By: #### C BC #### [facility] ([facility]) [address] [place] [address] VIR COMPREHENSIVE METABOLIC PANE Roland 11-08-2024 Albumin [Mass/Vol] 4.2 g/dL Normal 3.2-5.3 [facility] Comment on above: Performed By: #### C MP #### [facility] ([facility]) [address] [place] [address] VIR ALP [Catalytic activity/Vol] 48 U/L Normal 39-130 [facility] Comment on above: Performed By: #### C MP #### [facility] ([facility]) [address] [place] [address] VIR ALT [Catalytic activity/Vol] 10 U/L Normal <=31 [facility] Comment on above: Performed By: #### C MP #### [facility] ([facility]) [address] [place] [address] VIR Anion gap [Moles/Vol] 8 mmol/L Normal 5-15 [facility] Comment on above: Performed By: #### C MP #### [facility] ([facility]) [address] [place] [address] VIR AST [Catalytic activity/Vol] 17 U/L Normal <=41 [facility] Comment on above: Performed By: #### C MP #### [facility] ([facility]) [address] [place] [address] VIR Bilirubin [Mass/Vol] 0.5 mg/dL Normal 0.3-1.[address] [facility] Comment on above: Performed By: #### C MP #### [facility] ([facility]) [address] [place] [address] VIR Calcium [Mass/Vol] 10.0 mg/dL Normal 8.5-10.5 [facility] Comment on above: Performed By: #### C MP #### [facility] ([facility]) [address] [place] [address] VIR Chloride [Moles/Vol] 101 mmol/L Normal 98-[address] [facility] Comment on above: Performed By: #### C MP #### [facility] ([facility]) [address] [place] [address] VIR CO2 [Moles/Vol] 32 mmol/L Normal 22-32 [facility] Comment on above: Performed By: #### C MP #### [facility] ([facility]) [address] [place] [address] VIR Creatinine [Mass/Vol] 1.06 mg/dL High 0.40-1.00 [facility] Comment on above: Result Comment: METH OD TRACEABLE TO IDMS STANDARD Performed By: #### C MP #### [facility] ([facility]) [address] [place] [address] VIR GFR/1.73 sq M.predicted among non-blacks MDRD (S/P/Bld) [Vol rate/Area] 54 mL/min/{1.73_m2} Low >=60 [facility] Comment on above: Result Comment: Repo rted eGFR is based on the CKD-EPI 2020 equation that does not use a race coefficient. Performed By: #### C MP #### [facility] ([facility]) [address] [place] [address] VIR Glucose [Mass/Vol] 109 mg/dL High 65-99 [facility] Comment on above: Performed By: #### C MP #### [facility] ([facility]) [address] [place] [address] VIR Potassium [Moles/Vol] 3.9 mmol/L Normal 3.5-5.0 [facility] Comment on above: Performed By: #### C MP #### [facility] ([facility]) [address] [place] [address] VIR Protein [Mass/Vol] 7.2 g/dL Normal 6.0-8.0 [facility] Comment on above: Performed By: #### C MP #### [facility] ([facility]) [address] [place] [address] VIR Sodium [Moles/Vol] 141 mmol/L Normal 134-146 [facility] Comment on above: Performed By: #### C MP #### [facility] ([facility]) [address] [place] [address] VIR Urea nitrogen [Mass/Vol] 27 mg/dL Normal 5-27 [facility] Comment on above: Performed By: #### C MP #### [facility] ([facility]) [address] [place] [address] VIR MAGNESIUMon 11-08-2024 Magnesium [Mass/Vol] 1.9 mg/dL Normal 1.8-2.[address] [facility] Comment on above: Performed By: #### M G #### [facility] ([facility]) [address] [place] [address] VIR POCT EKGOrdered By: Cora contreras on 11-08-2024 [facility] Ambulatory Visit Summaryon 0 10-26-2024 Ambulatory Visit Summary Ambulatory Visit Summary BETTIE BURNS :1945 Visit Date:10/26/2024 Ambulatory Visit Instructions Your Diagnosis Mixed incontinence Frequent UTI History of kidney stones Microscopic hematuria Anticoagulated History of breast cancer Former smoker Your Care Team Attending Physician - Jacqui MOTT, Maria E Primary Care Physician - RAUDEL VILLEGAS, ELLIOT Referring Physician - Paul VILLEGAS, Alfreda Palacios This Is Your Medications List Misc Prescription [...] 40 mg Cap-DR) potassium chloride (Potassium Chloride (Aeo-Mjap-Qzu 10) 10 mEq oral tablet, extended release) [...] E Osman PA-C Where: [facility] [address] [place] [id number]- Medications What How Much When Why Instructions [...] 1 Capsules Unchanged potassium chloride (Potassium Chloride (Pbu-Ryko-Ldp 10) 10 mEq oral tablet, extended release) [...] signed up for this yet, please contact Health Information Management at [phone] to get signed up today. Language Information Language assistance services are available as needed. Normal [facility] Urology Office/Clinic Noteon 10-26-2024 Urology Office/Clinic Note [...] off and repeat Botox is desired Ordered: 88883 Measure Post Void residual urine and/or bladder capacity by US- non-imaging Urnls Dip Stick Auto w/o Microscopy POC 31319 2. Frequent UTI (N39.0: Urinary tract infection, [...] -Cont symptom monitoring -High fluid intake, add lemon/pilot station -Moderate animal protein, increase fruits and vegetables 4. 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 She has had a hematuria workup including a scope in the past at [facility]. Denies gross hematuria. CTU 07/18/24 - neg for filling defects, 3 mm right ureteral stone noted. Follow up CT scan confirmed passage. S/p cysto 09/19/24 - negative for b.t., lesions, stones or foreign bodies. Cystitis cystica. Moderate vaginal atrophy. UA today w/ moderate bloo (more content not included)... Normal [facility] Comment on above: Result Comment: Elec tronically Signed By: Jacqui MOTT, Maria E\.br\Date and Time Signed: 10/26/24 09:05 EDT Inpatient Patient Summaryon 09-19-2024 Inpatient Patient Summary Inpatient Patient Summary [place] [address] Clinical Summary Person Information Name: BETTIE BURNS Age: 79 Years : 1945 Sex: Female PCP: ELLIOT STARKS MD Marital Status: Race: White Ethnicity: Non- or Language: Nigerian Visit Id: Visit Reason: MIXED INCONTINENCE Speciality: Acuity: Enc Type: Outpatient Med Service: Surgery Arrival: 09/19/2024 07:39:26 Discharge: Dispo Type: Address: [address] [place] [phone] Provider Notes: Diagnosis: Mixed incontinence; Recurrent UTI; [...] Cap-DR) 1 Capsules. potassium chloride (Potassium Chloride (Yrf-Zjfs-Jtf 10) 10 mEq oral tablet, extended release) [...] Cystoscopy with Botox Injection Discharge Instructions (CUSTOM) [facility] Main OR Intraoperative Recor don 09-19-2024 Main OR Intraoperative Record Main OR Intraoperative Record IntraOp Document Type FTURO Summary Primary Physician: Alfreda Miller MD Finalized Date/Time: 09/19/24 08:27:50 Pt. Name: BETTIE BURNS Diana Palomino/Sex: 1945 Female Med Rec #: [id number] Physician: Alfreda Miller MD Financial #: [id number] Pt. Type: O Room/Bed: / Admit/Disch: 09/19/24 07:39:26 - Institution: Case Times FTURO Entry 1 Patient Times In Room 09/19/24 08:12:00 Out Room 09/19/24 08:24:00 Procedure Times Start 09/19/24 08:17:00 Stop 09/19/24 08:20:00 Anesthesia Times Last Modified By: Roxy King 09/19/24 08:27:24 General Comments: BOTOX 100 UNITS: EXP: AND LOT: [id number].RICARDO MOREIRA . Case Attendance FTURO Entry 1 Entry 2 Entry 3 Case Attendee Alfreda Miller MD, Kelsie E Miller, Laura C Role Performed Surgeon - Primary Flux Core Welder - Primary Scrub - Primary Time In [...] Signed By: Roxy King 09/19/24 08:27 Normal [facility] Main OR Preoperative Recordo n 09-19-2024 Main OR Preoperative Record Main OR Preoperative Record Holding Area Document Type FTURO Summary Primary Physician: Alfreda Miller MD Finalized Date/Time: 09/19/24 08:17:11 Pt. Name: BETTIE BURNS /Sex: 1945 Female Med Rec #: [id number] Physician: Alfreda Miller MD Financial #: [id number] Pt. Type: O Room/Bed: / Admit/Disch: 09/19/24 [...] Complaints of Pain: No Skin Integrity Intact, Stollings, Warm, & Dry Vitals - EU Blood [...] Unfinalizing Freetext Reason for Unfinalizing 09/19/24 08:16 [id number] Adding Additional Data Normal [facility] Operative Reporton Operative Report Operative [...] regarding vaginal atrophy and recurrent UTIs. Normal [facility] Comment on above: Result Comment: Elec tronically Signed By: Paul VILLEGAS, Alfreda Palacios\.br\Date and Time Signed: 09/19/24 08:25 EDT Outpatient Surgery Discharge Instructionon 09-19-2024 Outpatient Surgery Discharge Instruction Outpatient Surgery Discharge Instruction [place] [id number] Patient Discharge Instructions PERSON INFORMATION Name: BETTIE [...] a fever over 100 degrees. ??? ALMA Curz TONYA G, have received the attached patient [...] to serve you. Thank you for choosing [facility] Normal [facility] C Urineon 09-14-2024 Bacteria identified [...] Locations R1: This test was performed at: [facility], [address] [place] [address], [id number] [place] [address], [phone] [address] Comment on above: Performed By: #### 2 [id number] #### [facility] [address] [place] [address] C Urineon 06-24-2024 Bacteria identified Cx Nom [...] Locations R1: This test was performed at: [facility], [address] [place] [address], [id number] [place] [address], [facility] Comment on above: Performed By: #### 2 [id number] #### [facility] [address] [place] [address] Ambulatory Visit Summaryon 0 06-22-2024 Ambulatory Visit [...] 40 mg Cap-DR) potassium chloride (Potassium Chloride (Ecj-Jxay-Xqx 10) 10 mEq oral tablet, extended release) [...] 1 Capsules Unchanged potassium chloride (Potassium Chloride (Wwq-Xydt-Nes 10) 10 mEq oral tablet, extended release) [...] for choosing us for your care. Normal [facility] URINALYSISOrdered By: Tien Lyon on [...] that meet specific criteria set forth by [facility]. Epithelial cells.squamous Auto (Urine [...] PM) Invalid Interpretation Code 5.0 - 9.0 [facility] UA Auto SS Protein Ql (U) Negative Normal Negativemg/d L [facility] UA Auto SS RBC Ql (U) 4-20 graded/HPF Invalid Interpretation Code 0-3graded/HP F [facility] UA Auto SS Specific gravity (U) [Rel density] 1.013 *NA* (06/22/24 1:48 PM) Invalid Interpretation Code 1.005 - 1.030 [facility] UA Auto SS Urobilinogen (U) [Mass/Vol] Negative Normal Negativemg/d L [facility] UA Auto SS WBC Auto (Urine sed) [#/Area] 31-75 *ABN* (06/22/24 1:48 PM) Invalid Interpretation Code 0-5 [facility] UA Auto SS URINALYSISOrdered By: Catina Corona on 06-22-2024 UA Spec Desc Random Urine (06/22/24 1:48 PM) Normal [facility] UA Auto SS Urinalysis with Microon 06-04 Bacteria Auto Ql (U) 1+ /HPF Abnormal Trace Fish [facility] Comment on above: Performed By: #### 4 [id number] #### [facility] [address] [place] [address] Bilirubin Ql (U) Negative Normal Negative [facility] Comment on above: Performed By: #### 4 [id number] #### [facility] [address] [place] [address] Clarity (U) Clear Normal Clear [facility] Comment on above: Performed By: #### 4 [id number] #### [facility] [address] [place] [address] Color (U) Light-Yellow Normal Yellow [facility] Comment on above: Result Comment: Micr oscopic readings are only performed on those samples that meet specific criteria set forth by [facility]. Performed By: #### 4 [id number] #### [facility] [address] [place] [address] Epithelial cells.squamous Auto (Urine sed) [#/Area] 0-2 Invalid Interpretation Code [facility] Comment on above: Performed By: #### 4 [id number] #### [facility] [address] [place] [address] Glucose Ql (U) Negative Normal Negative [facility] Comment on above: Performed By: #### 4 [id number] #### [facility] [address] [place] [address] Hemoglobin Auto test strip (U) [Mass/Vol] 2+ Abnormal Negative [facility] Comment on above: Performed By: #### 4 [id number] #### [facility] [address] [place] [address] Ketones Auto test strip Ql (U) Negative Normal Negative [facility] Comment on above: Performed By: #### 4 [id number] #### [facility] [address] [place] [address] Leukocyte esterase Auto test strip Ql (U) 250 Felipe/uL Abnormal Negative [facility] Comment on above: Performed By: #### 4 [id number] #### [facility] [address] [place] [address] Mucus Auto Ql (U) Negative Normal Negative [facility] Comment on above: Performed By: #### 4 [id number] #### [facility] [address] [place] [address] Nitrite Auto test strip Ql (U) Negative Normal Negative [facility] Comment on above: Performed By: #### 4 [id number] #### [facility] [address] [place] [address] pH (U) 6.0 [pH] Invalid Interpretation Code 5.0-9.0 [facility] Comment on above: Performed By: #### 4 [id number] #### [facility] [address] [place] [address] Protein Ql (U) Negative Normal Negative [facility] Comment on above: Performed By: #### 4 [id number] #### [facility] [address] [place] [address] RBC Ql (U) 4-20 Abnormal 0-3 [facility] Comment on above: Performed By: #### 4 [id number] #### [facility] [address] [place] [address] Specific gravity (U) [Rel density] 1.013 Invalid Interpretation Code 1.005-1.030 [facility] Comment on above: Performed By: #### 4 [id number] #### [facility] [address] [place] [address] Urobilinogen (U) [Mass/Vol] Negative Normal Negative [facility] Comment on above: Performed By: #### 4 [id number] #### [facility] [address] [place] [id number] WBC Auto (Urine sed) [#/Area] 31-75 Abnormal 0-5 [facility] Comment on above: Performed By: #### 4 [id number] #### [facility] [address] [place] [id number] Type of Urine collection method Random Urine Normal [facility] Comment on above: Performed By: #### 4 [id number] #### [facility] [address] [place] [address] Urology Office/Clinic Noteon 06-22-2024 Urology Office/Clinic Note [...] well nourished, in no acute distress. Assessment/Plan KM patient, last seen in-office 05/27/23 78 y/o [...] pending completion of cystoscopy w/ KML Ordered: 86473 Measure Post Void residual urine and/or bladder [...] Urnls Dip Stick Auto w/o Microscopy POC 83889 2. Frequent UTI (N39.0: Urinary tract infection, [...] UTIs for (more content not included)... Normal [facility] Comment on above: Result Comment: Elec tronically Signed By: Jacqui MOTT, Maria E\.br\Date and Time Signed: 06/22/24 15:08 EST Shane 09-17-2023 CNPN Telephone (MARIA TERESA) BETTIE BURNS ([id number]) 1945 F Date Time Provider Department 09/17/23 MATT ADAMS During your visit today, we recorded the following information about you: Matt Adams RN 09/17/2023 10:20 AM Signed Pt called to request yearly Mammogram order I have pended order as previously completed Pt requests to fax to Nori Lema [phone] MEETAM/: please review and sign if agreeable RICARDO [...] mammogram for malignant neoplasm of breast [Z12.31] Order(s):[facility] SCREENING [facility] [[id number]] Order #: [id number] FUTURE Prescriptions as of 09/17/2023 - lisinopril [...] (HCC) [I48.20] 03/24/2018 Encounter Status:Closed by ANDREW COHI on 09/17/23 Normal [facility] BASIC METABOLIC PANELon 03-0 Anion gap [Moles/Vol] 1 mmol/L MMOL/L [facility] Calcium [Mass/Vol] 8.7 mg/dL [facility] Chloride [Moles/Vol] 103 mmol/L [facility] Comment on above: Please note: Triglyc eride levels of 600mg/dL or higher may positively bias chloride results by approximately 2.1 mmol CO2 [Moles/Vol] 30 mmol/L [facility] Creatinine [Mass/Vol] 1.10 mg/dL [facility] GFR COMMENT Average GFR for 70+ years old = 75. [facility] Comment on above: Chronic Kidney disea se, GFR = <60. Kidney failure, GFR = <15. The GFR estimate is not adjusted for extreme body surface area or acute process, nor has it been validated for women or ethnic groups other than and . GFR/1.73 sq M.predicted among blacks MDRD (S/P/Bld) [Vol rate/Area] 62 mL/min/{1.73_m2} ml/min/1.73s q.m [facility] GFR/1.73 sq M.predicted among non-blacks MDRD (S/P/Bld) [Vol rate/Area] 51 mL/min/{1.73_m2} ml/min/1.73s q.m [facility] Glucose post fast [Mass/Vol] 141 mg/dL High [facility] Comment on above: NORMAL <100 mg/dL PREDIABETES 101-126 mg/dL DIABETES 126 mg/dL or higher Interpretation and review of laboratory results Abnormal [facility] Potassium [Moles/Vol] 3.8 mmol/L [facility] Sodium [Moles/Vol] 134 mmol/L Low [facility] Urea nitrogen [Mass/Vol] 30 mg/dL High [facility] CBC, EDIF, PLATELETon 2023 ABSOLUTE BASOPHIL COUNT 0.0 10*3/uL 0.0 - 0.2 10*3/uL [facility] Basophils/100 WBC (Bld) 0.3 % 0.0 - 2.0 % [facility] Differential cell count method Nom (Bld) AUTO DIFF % [facility] Eosinophils (Bld) [#/Vol] 0.0 10*3/uL 0.0 - 0.7 10*3/uL [facility] Eosinophils/100 WBC (Bld) 0.0 % 0.0 - 11.0 % [facility] Erythrocyte distribution width (RBC) [Ratio] 13.2 % 11.5 - 14.5 % [facility] Hematocrit (Bld) [Volume fraction] 33.6 % Low 36.0 - 48.0 % [facility] Hemoglobin (Bld) [Mass/Vol] 12.0 g/dL [facility] Interpretation and review of laboratory results Abnormal [facility] Lymphocytes (Bld) [#/Vol] 1.1 10*3/uL Low 1.2 - 3.4 10*3/uL [facility] Lymphocytes/100 WBC (Bld) 16.4 % Low 20.0 - 55.0 % [facility] MCH (RBC) [Entitic mass] 33.6 pg 26.0 - 35.0 PG [facility] MCHC (RBC) [Mass/Vol] 35.6 g/dL [facility] MCV (RBC) [Entitic vol] 94.2 fL [facility] Monocytes (Bld) [#/Vol] 0.3 10*3/uL 0.0 - 0.7 10*3/uL [facility] Monocytes/100 WBC (Bld) 4.3 % 0.0 - 10.0 % [facility] Neutrophils (Bld) [#/Vol] 5.2 10*3/uL 1.4 - 6.5 10*3/uL [facility] Neutrophils/100 WBC (Bld) 79.0 % High 37.0 - 75.0 % [facility] Platelet mean volume (Bld) [Entitic vol] 7.0 fL Low [facility] Platelets (Bld) [#/Vol] 226 10*3/uL 130 - 400 10*3/uL [facility] RBC (Bld) [#/Vol] 3.57 10*6/uL Low 4.0 - 5.4 10*6/uL [facility] WBC (Bld) [#/Vol] 6.6 10*3/uL 3.6 - 11.0 10*3/uL [facility] BODY FLUID CELL COUNTon 03-0 Appearance (Body fld) HAZY [facility] Color (Body fld) LIGHT YELLOW [facility] RBC Auto (Body fld) [#/Vol] 3376 /CMM [facility] Specimen source Nom (Body fld) SYNOVIAL FLUID [facility] WBC (Body fld) [#/Vol] 57 10*3/uL /CMM [facility] DIFFERENTIAL, FLUIDon 2023 BASOPHILS, FLUID 2 % [facility] Comment on above: NO REFERENCE RANGE E STABLISHED Eosinophils/100 WBC (Body fld) 4 % [facility] Comment on above: NO REFERENCE RANGE E STABLISHED Lymphocytes/100 WBC (Body fld) 22 % [facility] Comment on above: NO REFERENCE RANGE E STABLISHED MESOTHELIAL CELLS, FLUID 8 % [facility] Comment on above: NO REFERENCE RANGE E STABLISHED Monocytes+Macrophage s/100 WBC Manual cnt (Body fld) 48 % [facility] Comment on above: NO REFERENCE RANGE E STABLISHED Neutrophils/100 WBC (Body fld) 16 % [facility] Comment on above: NO REFERENCE RANGE E STABLISHED [facility] REPEAT ABO/RH (D) TYPINGon 0 07-07-2023 ABO and Rh group Nom (Bld ) Positive [facility] SCREEN: MRSA ONLY, NARES (IS OLATION SCREEN)on 07-07-2023 MRSA isol Org specific cx Ql (Nose) Negative NEGATIVE [facility] STAPHYOCOCCUS AUREUS BY PCR Negative NEGATIVE [facility] Comment on above: TESTING PERFORMED BY PCR [facility] XR Pelvis 2 Viewson 07-07-19 FINDINGS/IMPRESSION: [...] or other acute bony abnormality is seen. [facility] Radiology Study observation (narrative) [facility] XR Pelvis 2 ViewsOrdered By: Parveen Mason on 07-07-2023 [facility] Work Phone: POCT EKGOrdered By: Samantha Gurrola on 06-02-2023 [facility] COBALT AND CHROMIUM,WBon Chromium (Bld) [Mass/Vol] 1.1 [facility] Comment on above: Reference range: <3. 0 Unit: ng/mL PERFORMED BY [employer] [facility] (Bld) [Mass/Vol] <1.0 [facility] Comment on above: Reference range: <3. 0 Unit: ng/mL (NOTE) Chromium and cobalt analysis performed by inductively coupled plasma/mass spectrometry (ICP/MS). Reference range is for patients with gtxli-cr-wbzne (MoM) orthopedic implants. The [place] [employer] Hip and Knee Surgeons, the [place] [employer] Orthopaedic Surgeons, and The Hip Society, have published a consensus statement, Risk Stratification Algorithm for Management of Patients with Sbbts-si-Awbvm Hip Arthroplasty. The algorithm is intended as an aid to orthopedic surgeons in the assessment and management of patients with Jpoub-sx-Motht bearings. The systematic risk stratification includes recommendations [...] developed and its performance characteristics determined by [employer]. It has not been cleared or approved by the Food and Drug Administration. [employer] [facility] C REACTIVE PROTEINon 024 CRP [Mass/Vol] 48.4 mg/L High 0 - 10 MG/L [employer] [facility] Interpretation and review of laboratory results Abnormal [employer] [facility] SEDIMENTATION RATE, AUTOMATE Don 05-14-2023 ESR (Bld) [Velocity] 31 mm/h High [employer] [facility] Interpretation and review of laboratory results Abnormal [facility] Urinalysis - DIPSTICKon 10-03 Appearance (U) cloudy [employer] Other Bilirubin Ql (U) [employer] Other Color (U) yellow [employer] Other Glucose Ql (U) Negative [employer] Other Hemoglobin Ql (U) [employer] Other Ketones Ql (U) Negative [employer] Other Leukocyte esterase Test strip Ql (U) moderate [employer] Other Nitrite Ql (U) Positive [employer] Other pH (U) 5 [pH] [employer] Other Protein Ql (U) Negative [employer] Other Specific gravity (U) [Rel density] 1.010 [employer] Other Urobilinogen (U) [Mass/Vol] off chart [employer] Other Urinalysis - DIPSTICK [employer] Other Urine Cultureon 10-27-2022 Bacteria identified Cx Nom (U) ORGANISM: Escherichia coli (O:ESCCOL) [place] Count >100,000 Aerobic AUBREY Charge (NMIC56) --- [...] RESISTANT TO ALL B-LACTAM DRUGS. PERFORMED BY: [address] [address] PATHOLOGIST IMPERSONATOR CHARACTER JOSE GUADALUPE FERGUSON M.D. [facility] Comment on above: Performed By: #### C UU #### [address] [address] [facility] Urinalysis - DIPSTICKon 06-05 Appearance (U) cloudy [employer] Other Bilirubin Ql (U) Negative [employer] Other Color (U) pale yellow [employer] Other Glucose Ql (U) Negative [employer] Other Hemoglobin Ql (U) non hem-trace [employer] Other Ketones Ql (U) trace [employer] Other Leukocyte esterase Test strip Ql (U) moderate [employer] Other Nitrite Ql (U) Negative [employer] Other pH (U) 5 [pH] [employer] Other Protein Ql (U) trace [employer] Other Specific gravity (U) [Rel density] 1.005 [employer] Other Urobilinogen (U) [Mass/Vol] normal [employer] Other Urinalysis - DIPSTICK [employer] Other CULTURE URINEon 06-11-2022 CULTURE URINE Isolate [...] Trimethoprim/Sulfameth oxazole <=20 S F Normal [facility] Comment on above: Performed By: #### U RCX #### [facility] [address] [place] [address] Dr. Florencio Narayanan CARDIAC AMBER ADMITon 023 CK [Catalytic activity/Vol] 44 U/L Normal 26-192 [facility] Comment on above: Performed By: #### C LILIAN LOZANO, CMADM #### [facility] [address] [place] [address] Dr. Florencio Narayanan CK.MB [Mass/Vol] ng/mL Normal <=3.60 [facility] Comment on above: Performed By: #### C MAURICIO LOZANOA, CMADM #### [facility] [address] [place] [address] Dr. Florencio Narayanan HSTROP 14.6 pg/mL Normal 4.0-51.3 [facility] Comment on above: Result Comment: CUT- OFF POINTS HAVE BEEN ESTABLISHED BASED ON THE FOURTH UNIVERSAL DEFINITIONS OF MYOCARDIAL INFARCTION. THE UPPER REFERENCE LIMIT (URL) OF TROPONIN, DEFINED THE 99TH PERCENTILE OF cTnI DISTRIBUTION IN A REFERENCE POPULATION, HAS BEEN CONFIRMED THE DECISION THRESHOLD FOR MT DIAGNOSIS. Performed By: #### C BLAKE, LIPA, CMADM #### [facility] [address] [place] [address] Dr. Florencio Narayanan UMER 109 ng/mL Critically high 9-82 [facility] Comment on above: Performed By: #### C LILIAN LOZANO, CMADM #### [facility] [address] [place] [address] Dr. Florencio Narayanan CBC AUTO DIFFon 06-09-2022 BASO # 0.1 103/ul Normal 0.0-0.1 [facility] Comment on above: Performed By: #### C BC #### [facility] [address] [address] [address] Florencio Narayanan Basophils/100 WBC (Bld) 0.4 % Normal 0.2-2.0 [facility] Comment on above: Performed By: #### C BC #### [facility] [address] [place] [address] Dr. Florencio Narayanan EO # 0.0 103/ul Normal 0.0-0.7 [facility] Comment on above: Performed By: #### C BC #### [facility] [address] [place] [address] Dr. Florencio Narayanan Eosinophils/100 WBC (Bld) 0.2 % Critically low 0.9-7.0 [facility] Comment on above: Performed By: #### C BC #### [facility] [address] [place] [address] Dr. Florencio Narayanan Erythrocyte distribution width (RBC) [Ratio] 12.3 % Normal 11.0-15.0 [facility] Comment on above: Performed By: #### C BC #### [facility] [address] [place] [address] Dr. Florencio Narayanan Hematocrit (Bld) [Volume fraction] 38.4 % Normal 36.0-48.0 [facility] Comment on above: Performed By: #### C BC #### [facility] [address] [place] [address] Dr. Florencio Narayanan Hemoglobin (Bld) [Mass/Vol] 12.7 g/dL Normal 12.0-16.0 [facility] Comment on above: Performed By: #### C BC #### [facility] [address] [place] [address] Dr. Florencio Narayanan IG # 0.06 10e3/ul Critically high 0.00-0.03 [facility] Comment on above: Performed By: #### C BC #### [facility] [address] [place] [address] Dr. Florencio Narayanan IG % 0.5 % Normal 0.0-0.5 [facility] Comment on above: Performed By: #### C BC #### [facility] [address] [address] [address] Florencio Narayanan LYMPH # 1.0 103/ul Critically low 1.2-3.8 [facility] Comment on above: Performed By: #### C BC #### [facility] [address] [place] [address] Dr. Florencio Narayanan Lymphocytes/100 WBC (Bld) 8.4 % Critically low 20.5-60.0 [facility] Comment on above: Performed By: #### C BC #### [facility] [address] [place] [address] Dr. Florencio Narayanan MANUAL DIFF REQ NO Normal [facility] Comment on above: Performed By: #### C BC #### [facility] [address] [place] [address] Dr. Florencio Narayanan MCH (RBC) [Entitic mass] 32.4 pg Normal 26.7-34.0 [facility] Comment on above: Performed By: #### C BC #### [facility] [address] [place] [address] Dr. Florencio Narayanan MCHC (RBC) [Mass/Vol] 33.1 g/dL Normal 29.9-35.2 [facility] Comment on above: Performed By: #### C BC #### [facility] [address] [place] [address] Dr. Florencio Narayanan MCV (RBC) [Entitic vol] 98.0 fL Normal 81.0-99.0 [facility] Comment on above: Performed By: #### C BC #### [facility] [address] [place] [address] Dr. Florencio Narayanan MONO # 1.6 103/ul Critically high 0.3-0.8 [facility] Comment on above: Performed By: #### C BC #### [facility] [address] [place] [address] Dr. Florencio Narayanan Monocytes/100 WBC (Bld) 13.1 % Critically high 1.7-12.0 [facility] Comment on above: Performed By: #### C BC #### [facility] [address] [address] [address] Florencio Narayanan NEUT # 9.5 103/ul Critically high 1.4-6.5 [facility] Comment on above: Performed By: #### C BC #### [facility] [address] [address] [address] Florencio Narayanan Neutrophils/100 WBC (Bld) 77.4 % Critically high 43.0-75.0 [facility] Comment on above: Performed By: #### C BC #### [facility] [address] [address] [address] Florencio Narayanan Platelet mean volume (Bld) [Entitic vol] 9.4 fL Critically low 9.5-13.5 [facility] Comment on above: Performed By: #### C BC #### [facility] [address] [place] [address] Dr. Florencio Narayanan PLT 140 103/ul Critically low 150-450 [facility] Comment on above: Performed By: #### C BC #### [facility] [address] [address] [address] Florencio Narayanan RBC 3.92 106/ul Critically low 4.20-5.40 [facility] Comment on above: Performed By: #### C BC #### [facility] [address] [place] [address] Dr. Florencio Narayanan WBC 12.2 103/ul Critically high 4.0-11.0 [facility] Comment on above: Performed By: #### C BC #### [facility] [address] [place] [address] STROKE HEAD WOon [...] acute intracranial abnormality. Electronically authenticated by: LUANA BLOCKDUONG Date: 2022-06-09 12:24 Normal [facility] Covid-19 PCR (CVDTB)on SARS-CoV-2 (COVID-19) RNA CHRISTOPHER+probe Ql (Unsp spec) Not detected Normal NOT DETECTED [facility] Comment on above: Result Comment: When [...] for this test is supported by the International Sales Representative of Health and Human Service's [...] used). Performed By: #### C VDTB #### [facility] [address] [place] [address] Dr. Florencio Narayanan ER URINE PROFILEon 3 Bilirubin Ql (U) Negative Normal NEGATIVE [facility] Comment on above: Performed By: #### E HARINDER UMROSETTERO #### [facility] [address] [place] [address] Dr. Florencio Narayanan Clarity (U) CLEAR Normal CLEAR [facility] Comment on above: Performed By: #### E LIYAH PIZANORO #### [facility] [address] [place] [address] Dr. Florencio Narayanan Color (U) LT. YELLOW Normal YELLOW [facility] Comment on above: Performed By: #### E LIYAH PIZANORO #### [facility] [address] [address] [address] Florencio CONLEY A micrscopic examination will be performed if indicated. Normal [facility] Comment on above: Performed By: #### LIYAH LERO #### [facility] [address] [address] [address] Florencio Narayanan Glucose Ql (U) Negative Normal NEGATIVE [facility] Comment on above: Performed By: #### LIYAH LERO #### [facility] [address] [place] [address] Dr. Florencio Narayanan Hemoglobin Ql (U) LARGE Abnormal NEGATIVE [facility] Comment on above: Performed By: #### LIYAH LERO #### [facility] [address] [place] [address] Dr. Florencio Narayanan Ketones Ql (U) TRACE Abnormal NEGATIVE [facility] Comment on above: Performed By: #### LIYAH LERO #### [facility] [address] [place] [address] Dr. Florencio Narayanan LEUKOCYTES LARGE Abnormal NEGATIVE [facility] Comment on above: Performed By: #### LIYAH LERO #### [facility] [address] [place] [address] Dr. Florencio Narayanan Nitrite Ql (U) Positive Abnormal NEGATIVE [facility] Comment on above: Performed By: #### LIYAH LERO #### [facility] [address] [place] [address] Dr. Florencio Narayanan pH (U) 5.5 [pH] Normal 5-9 [facility] Comment on above: Performed By: #### LIYAH LERO #### [facility] [address] [place] [address] Dr. Florencio Narayanan SPEC GRAVITY 1.010 Normal 1.005-<=1.02 5 [facility] Comment on above: Performed By: #### LIYAH LERO #### [facility] [address] [place] [address] Dr. Florencio Narayanan UA PROTEIN TRACE Normal NEGATIVE/ TRACE [facility] Comment on above: Performed By: #### LIYAH LERO #### [facility] [address] [place] [address] Dr. Florencio Narayanan UR MICRO IND INDICATED Normal [facility] Comment on above: Performed By: #### LIYAH LERO #### [facility] [address] [place] [address] Dr. Florencio Narayanan Urobilinogen Qn (U) 0.2 {Zenia'U}/dL Normal 0.2 - 1. 0 [facility] Comment on above: Performed By: #### LIYAH LERO #### [facility] [address] [place] [address] Dr. Florencio Narayanan LIPASEon 06-09-2022 Lipase [Catalytic activity/Vol] 68.0 U/L Critically low 73.0-393.0 [facility] Comment on above: Performed By: #### C MP, LIPA, CMADM #### [facility] [address] [place] [address] Dr. Florencio Narayanan PROF 14(COMP METB)on 023 Albumin [Mass/Vol] 2.5 g/dL Critically low 3.4-5.0 [facility] Comment on above: Performed By: #### C MP, LIPA, CMADM #### [facility] [address] [place] [address] Dr. Florencio Narayanan Albumin/Globulin [Mass ratio] 0.6 {ratio} Normal [facility] Comment on above: Performed By: #### C MP, LIPA, CMADM #### [facility] [address] [place] [address] Dr. Florencio Narayanan ALP [Catalytic activity/Vol] 150 U/L Critically high 46-116 [facility] Comment on above: Performed By: #### C MP, LIPA, CMADM #### [facility] [address] [place] [address] Dr. Florencio Narayanan ALT [Catalytic activity/Vol] 27 U/L Normal 14-59 [facility] Comment on above: Performed By: #### C MP, LIPA, CMADM #### [facility] [address] [address] [address] Florencio Narayanan Anion gap [Moles/Vol] 12.8 mmol/L Normal [facility] Comment on above: Performed By: #### C MP, LIPA, CMADM #### [facility] [address] [address] [address] Florencio Narayanan AST [Catalytic activity/Vol] 31 U/L Normal 15-37 [facility] Comment on above: Performed By: #### C MP, LIPA, CMADM #### [facility] [address] [address] [address] Florencio Narayanan Bilirubin [Mass/Vol] 1.1 mg/dL Critically high 0.2-1.0 [facility] Comment on above: Performed By: #### C MP, LIPA, CMADM #### [facility] [address] [address] [address] Florencio Narayanan Calcium [Mass/Vol] 9.1 mg/dL Normal 8.5-10.1 [facility] Comment on above: Performed By: #### C MP, LIPA, CMADM #### [facility] [address] [address] [address] Florencio Narayanan Chloride [Moles/Vol] 95 mmol/L Critically low 98-107 [facility] Comment on above: Performed By: #### C MP, LIPA, CMADM #### [facility] [address] [address] [address] Florencio Narayanan CO2 [Moles/Vol] 29.4 mmol/L Normal 21.0-32.0 [facility] Comment on above: Performed By: #### C MP, LIPA, CMADM #### [facility] [address] [place] [address] Dr. Florencio Narayanan Creatinine [Mass/Vol] 1.34 mg/dL Critically high 0.55-1.02 [facility] Comment on above: Performed By: #### C MP, LIPA, CMADM #### [facility] [address] [place] [address] Dr. Florencio Narayanan EGFR-AF BANGLADESHI 47 mL/min/1.73m2 Critically low >=60 [facility] Comment on above: Performed By: #### C MP, LIPA, CMADM #### [facility] [address] [address] [address] Florencio Narayanan EGFR-NON AF BANGLADESHI 39 mL/min/1.73m2 Critically low >=60 [facility] Comment on above: Performed By: #### C MP, LIPA, CMADM #### [facility] [address] [address] [address] Florencio Narayanan Globulin (S) [Mass/Vol] 4.3 g/dL Normal [facility] Comment on above: Performed By: #### C MP, LIPA, CMADM #### [facility] [address] [address] [address] Florencio Narayanan Glucose [Mass/Vol] 118 mg/dL Critically high 74-106 [facility] Comment on above: Performed By: #### C MP, LIPA, CMADM #### [facility] [address] [address] [address] Florencio Narayanan Potassium [Moles/Vol] 3.2 mmol/L Critically low 3.5-5.1 [facility] Comment on above: Performed By: #### C MP, LIPA, CMADM #### [facility] [address] [address] [address] Florencio Narayanan Protein [Mass/Vol] 6.8 g/dL Normal 6.4-8.2 [facility] Comment on above: Performed By: #### C MP, LIPA, CMADM #### [facility] [address] [address] [address] Florencio Narayanan Sodium [Moles/Vol] 134 mmol/L Critically low 136-145 Th [facility] Comment on above: Performed By: #### C MP, LIPA, CMADM #### [facility] [address] [address] [address] Florencio Narayanan Urea nitrogen [Mass/Vol] 29.0 mg/dL Critically high 7.0-18.0 [facility] Comment on above: Performed By: #### C MP, LIPA, CMADM #### [facility] [address] [place] [address] Dr. Florencio Narayanan Urea nitrogen/Creatinine [Mass ratio] 21.6 mg/mg Normal [facility] Comment on above: Performed By: #### C MP, LIPA, CMADM #### [facility] [address] [place] [address] Dr. Florencio Narayanan URINE MICROSCOPIC ONLYon BACTERIA SMALL Abnormal NONE SEEN [facility] Comment on above: Performed By: #### E RUR, UMICRO #### [facility] [address] [place] [address] Dr. Florencio Narayanan Bacteria identified Cx Nom (U) INDICATED Normal [facility] Comment on above: Performed By: #### E RUR, UMICRO #### [facility] [address] [place] [address] Dr. Florencio Narayanan CAST NONE SEEN Normal NONE SEEN [facility] Comment on above: Performed By: #### E RUR, UMICRO #### [facility] [address] [place] [address] Dr. Florencio Narayanan Crystals LM Nom (Urine sed) NONE SEEN Normal NONE SEEN [facility] Comment on above: Performed By: #### E RUR, UMICRO #### [facility] [address] [place] [address] Dr. Florencio Narayanan Epithelial cells LM Ql (Urine sed) FEW Abnormal NONE SEEN /RARE [facility] Comment on above: Performed By: #### E RUR, UMICRO #### [facility] [address] [place] [address] Dr. Florencio Narayanan MUCOUS NONE SEEN Normal NONE SEEN [facility] Comment on above: Performed By: #### E RUR, UMICRO #### [facility] [address] [place] [address] Dr. Florencio Narayanan RBC 2-5 Abnormal 0-2 [facility] Comment on above: Performed By: #### E RUR, UMICRO #### [facility] [address] [place] [address] Dr. Florencio Narayanan WBC 10-20 Abnormal NONE SEEN [facility] Comment on above: Performed By: #### E ADIEL PIZANO #### [facility] [address] [place], [place] [id number] Dr. Florencio Narayanan XR CHEST 2 Von [...] JOAQUÍN ATKINS Date: 2022-06-09 12:24 Normal [facility] CULTURE URINEon 04-16-2022 CULTURE URINE Isolate [...] Trimethoprim/Sulfameth oxazole >=320 R F Normal [facility] Comment on above: Performed By: #### C BC #### [facility] [address] [place] [address] Dr. Florencio Narayanan MRI Hip w/o Righton [...] by Ramon Ambrocio on 09/11/2021 1545 Normal [facility] Strategy Planning Consultant Consult Reporton 03-14-2020 Consult Report [facility] CONSULTATION BETTIE BURNS 3ET [id number] OBSV ANABEL WATKINS MD [id number] REFERRING PHYSICIAN: CONSULTING PHYSICIAN: Renetta Almanzar MD DATE OF CONSULTATION: 03/11/2020 REASON: A near syncopal event in a 74-year-old female, with a history of atrial fibrillation, previous cardiac ablation, who was the time of evaluation noted to have a positive test for COVID. HISTORY OF PRESENT ILLNESS: Mrs. Burns is a very pleasant, alert and oriented -[id number] female who was brought into the emergency [...] quarantine. Many thanks. RENETTA ALMANZAR MD BD/MedQ /[id number] Normal [facility] BASICMETAon 03-11-2020 GFR AA >60 Normal [facility] Comment on above: Result Comment: Afri can [place] Islander GFR Calc Medical judgement is necessary to [...] for drug dosing. Performed By: #### 1 02686, [id number], [id number] ####[facility] [address] [place] [address] Medical Director: Fahad Cast MD GFR/1.73 sq M predicted among non-blacks MDRD (S/P/Bld) [Vol rate/Area] 56 mL/min/1.73m? Normal [facility] Comment on above: Result Comment: Non [...] for drug dosing. Performed By: #### 1 89454, 332803, 748371 ####[facility] [address] [place] [address] Medical Director: Fahad Cast MD Osmolality [Osmolality] 291 mOsm/kg Normal 275-295 [facility] Comment on above: Performed By: #### 1 88889, 640258, 461057 ####[facility] [address] [place] [address] Medical Director: Fahad Cast MD Urea nitrogen/Creatinine [Mass ratio] 24.5 mg/mg Normal [facility] Comment on above: Performed By: #### 1 47459, 573171, 992557 ####[facility] [address] [place] [address] Medical Director: Fahad Cast MD Calcium [Mass/Vol] 9.3 mg/dL Normal 8.5-10.5 [facility] Comment on above: Performed By: #### 1 69772, 366124, 308179 ####[facility] [address] [place] [address] Medical Director: Fahad Cast MD Chloride [Moles/Vol] 108 mmol/L Normal 100-109 [facility] Comment on above: Performed By: #### 1 43833, 209253, 669911 ####[facility] [address] [place] [address] Medical Director: Fahad Cast MD CO2, venous 28.9 mmol/L Normal 21.0-32.0 [facility] Comment on above: Performed By: #### 1 23766, 536440, 583935 ####[facility] [address] [place] [address] Medical Director: Fahad Cast MD Creatinine [Mass/Vol] 1.0 mg/dL Normal 0.6-1.0 [facility] Comment on above: Performed By: #### 1 58897, 982892, 552122 ####[facility] [address] [place] [address] Medical Director: Fahad Cast MD Glucose [Mass/Vol] 98 mg/dL Normal 72-100 [facility] Comment on above: Result Comment: Sharon puncture should occur prior to sulfasalazine administration due to the potential for falsely depressed results. Venipuncture should occur prior to sulfapyridine administration due to the potential falsely elevated results. Baseline assay values before administration of sulfasalazine and sulfapyridine therapy would not be affected. Performed By: #### 1 13744, 441902, 497201 ####[facility] [address] [place], [place] [id number]) [phone] Director: Fahad Cast MD Potassium [Moles/Vol] 4.2 mmol/L Normal 3.5-5.1 [facility] Comment on above: Performed By: #### 1 47269, 147726, 581025 ####[facility] [address] [place] [address] Medical Director: Fahad Cast MD Sodium [Moles/Vol] 144 mmol/L Normal 135-145 [facility] Comment on above: Performed By: #### 1 69688, 714027, 148602 ####[facility] [address] [place] [address] Medical Director: Fahad Cast MD Urea nitrogen [Mass/Vol] 24 mg/dL High 10-20 [facility] Comment on above: Performed By: #### 1 79900, 834118, 003338 ####[facility] [address] [place], [place] [id number]) [phone] Director: Fahad Cast MD CBCNDon 03-11-2020 Erythrocyte distribution width (RBC) [Ratio] 14.4 % Normal 11.5-14.5 [facility] Comment on above: Performed By: #### 1 22129, 965548, 079293 #### [facility] [address] [place] [address] Warp Spinner: Fahad Cast MD Hematocrit (Bld) [Volume fraction] 33.9 % Low 36.0-46.0 [facility] Comment on above: Performed By: #### 1 83721, 065070, 587352 #### [facility] [address] [place], [place] [address] Warp Spinner: Fahad Cast MD Hemoglobin (Bld) [Mass/Vol] 11.2 g/dL Low 12.0-16.0 [facility] Comment on above: Performed By: #### 1 49963, 445924, 020763 #### [facility] [address] [place], [place] [address] Warp Spinner: Fahad Cast MD MCH (RBC) [Entitic mass] 29.5 pg Normal 27.0-34.0 [facility] Comment on above: Performed By: #### 1 53461, 964655, 019554 #### [facility] [address] [place], [place] [address] Warp Spinner: Fahad Cast MD MCHC (RBC) [Mass/Vol] 33.0 g/dL Normal 32.0-37.0 [facility] Comment on above: Performed By: #### 1 44842, 239967, 528891 #### [facility] [address] [place], [place] [address] Warp Spinner: Fahad Cast MD MCV (RBC) [Entitic vol] 89.5 fL Normal 80.0-100.0 [facility] Comment on above: Performed By: #### 1 71782, 659898, 105717 #### [facility] [address] [place], [place] [address] Warp Spinner: Fahad Cast MD Platelet mean volume (Bld) [Entitic vol] 6.8 fL Low 7.4-10.4 [facility] Comment on above: Performed By: #### 1 36855, 005326, 126759 #### [facility] [address] [place] [address] Warp Spinner: Fahad Cast MD Platelets (Bld) [#/Vol] 232 x1000 Normal 150-450 [facility] Comment on above: Performed By: #### 1 43752, 051273, 804406 #### [facility] [address] [place] [address] Warp Spinner: Fahad Cast MD RBC (Bld) [#/Vol] 3.79 x10 Low 4.20-5.40 [facility] Comment on above: Result Comment: Note : RBC morphology is normal unless otherwise stated. Evaluation performed only if differential is requested. Performed By: #### 1 56884, 880825, 328117 #### [facility] [address] [place] [address] Warp Spinner: Fahad Cast MD WBC (Bld) [#/Vol] 5.8 10*3/uL Normal [facility] Comment on above: Performed By: #### 1 44921, 932842, 244378 #### [facility] [address] [place] [address] Warp Spinner: Fahad Cast MD WBC (Bld) [#/Vol] 5.8 x10 Normal 4.5-11.0 [facility] Comment on above: Performed By: #### 1 10658, 440206, 146291 #### [facility] [address] [place] [address] Warp Spinner: Fahad Cast MD D Dimer HSon 03-11-2020 D Dimer HS 821 ng/mL FEU High <=499 [facility] Comment on above: Result Comment: Excl usion of PE and DVT The D Dimer HS assay is reported in ng/ml Fibrinogen Equivalent Units (FEU). Per project manager/team coach?s instructions for use, a value less than 500ng/ml (FEU) may help to exclude DVT and /or PE in outpatients when the assay is used with a clinical pretest probability assessment. D-Dimer used for DIC Screens Assay results should be used with other information, including the clinical context in forming a diagnosis. Performed By: #### C [id number] ####[facility] [address] [place] [address] Medical Director: Fahad Cast MD LDHon 03-11-2020 LDH 198 unit/L Normal 84-246 [facility] Comment on above: Performed By: #### 1 06695, 340298, 404269 #### [facility] [address] [place] [address] Warp Spinner: Fahad Cast MD Progress Note-Physicianon Progress Note-Physician [...] Continue home medications. 6) DVT ppx: On [employer] Normal [facility] Utilization Review Noteon Utilization Review Note ID Consult pending DISCHARGE WRITTEN AND PLANNED. Normal [facility] AUTO DIFFon 03-10-2020 Basophils (Bld) [#/Vol] 0.05 x1000 Normal 0.00-0.20 [facility] Comment on above: Performed By: #### 1 73219, 828648, [id number] ####[facility] [address] [place] [address] Medical Director: Fahad Cast MD Basos % 0.6 % Normal [facility] Comment on above: Performed By: #### 1 01518, 892109, 0708841 ####[facility] [address] [place], [place] [id number] Medical Director: Fahad Cast MD Eos Count 0.15 x1000 Normal 0.00-0.50 [facility] Comment on above: Performed By: #### 1 18824, 829363, 2583701 ####[facility] [id number] [place] [address] Medical Director: Fahad Cast MD Eosinophils/100 WBC (Bld) 1.8 % Normal [facility] Comment on above: Performed By: #### 1 77757, 324889, [id number] ####[facility] Lflrgxpj35929 [place] [address] Medical Director: Fahad Cast MD Lymphocytes (Bld) [#/Vol] 1.05 x1000 Low 1.20-4.80 [facility] Comment on above: Performed By: #### 1 52390, 784281, 9091765 ####[facility] Ztcqspvr59700 [place] [address] Medical Director: Fahad Cast MD Lymphocytes/100 WBC (Bld) 12.7 % Normal [facility] Comment on above: Performed By: #### 1 82596, 383862, [id number] ####[facility] Snlokcgc33924 [place] [address] Medical Director: Fahad Cast MD [place] Count 0.70 x1000 Normal 0.10-1.00 [facility] Comment on above: Performed By: #### 1 40241, 384997, 9309150 ####[facility] Cexcesjs99453 [place] [address] Medical Director: Fahad Cast MD Monocytes/100 WBC (Bld) 8.4 % Normal [facility] Comment on above: Performed By: #### 1 00896, 522084, [id number] ####[facility] Myeeluox15288 [place] [address] Medical Director: Fahad Cast MD Neutrophils (Bld) [#/Vol] 6.32 x1000 Normal 1.40-8.80 [facility] Comment on above: Performed By: #### 1 65877, 388965, 1616890 ####[facility] Mzuhhgiy32712 [place] [address] Medical Director: Fahad Cast MD Neutrophils/100 WBC (Bld) 76.4 % Normal [facility] Comment on above: Performed By: #### 1 70676, 912407, 7236540 ####[facility] Bjlhsoob89427 [place] [address] Medical Director: Fahad Cast MD COMPMETAon 03-10-2020 Albumin [Mass/Vol] 3.4 g/dL Normal 3.4-5.0 [facility] Comment on above: Performed By: #### 1 , 399402, 2379104 ####[facility] Vnschkry45766 [place] [address] Medical Director: Fahad Cast MD Albumin/Globulin [Mass ratio] 0.8 {ratio} Normal [facility] Comment on above: Performed By: #### 1 , 330568, [id number] ####[facility] [address] [place] [address] Medical Director: Fahad Cast MD Alk Phos 71 unit/L Normal 45-117 [facility] Comment on above: Performed By: #### 1 , 259060, [id number] ####[facility] Lrvwsrfu64532 [place] [id number] Medical Director: Fahad Cast MD Bilirubin [Mass/Vol] 0.37 mg/dL Normal 0.20-1.00 [facility] Comment on above: Result Comment: Use of this assay is not recommended for patients undergoing treatment with eltrombopag due to the potential for falsely elevated results. Performed By: #### 1 , 924449, 8272771 ####[facility] Vmwigxcm25038 [place] [address] Medical Director: Fahad Cast MD Calcium [Mass/Vol] 9.4 mg/dL Normal 8.5-10.5 [facility] Comment on above: Performed By: #### 1 , 622771, 1255342 ####[facility] Bbiazxeb17084 [place] [address] Medical Director: Fahad Cast MD Chloride [Moles/Vol] 108 mmol/L Normal 100-109 [facility] Comment on above: Performed By: #### 1 12969, 724612, 5205029 ####[facility] Mkiwrbcb56518 [place] [address] Medical Director: Fahad Cast MD CO2, venous 28.2 mmol/L Normal 21.0-32.0 [facility] Comment on above: Performed By: #### 1 24950, 159267, 7711710 ####[facility] Dchmblmq40291 [place] [address] Medical Director: Fahad Cast MD Creatinine [Mass/Vol] 1.2 mg/dL High 0.6-1.0 [facility] Comment on above: Performed By: #### 1 83583, 481695, 6047901 ####[facility] Lbamddzg86681 [place] [id number] Medical Director: Fahad Cast MD GFR AA 53 [facility] Comment on above: Result Comment: Afri can [place] Islander GFR Calc Medical judgement is necessary to [...] for drug dosing. Performed By: #### 1 27073, 244881, 5661379 ####[facility] Elmjpbdi98036 [place] [address] Medical Director: Fahad Cast MD GFR/1.73 sq M predicted among non-blacks MDRD (S/P/Bld) [Vol rate/Area] 44 mL/min/1.73m? [facility] Comment on above: Result Comment: Non [...] for drug dosing. Performed By: #### 1 58328, 029936, 6847161 ####[facility] Rlwatmnv39658 [place] [id number]) [phone] Director: Fahad Cast MD Globulin (S) [Mass/Vol] 4.0 g/dL Normal [facility] Comment on above: Performed By: #### 1 65907, 581309, 2615950 ####[facility] Dzdnhmkz39659 [place] [id number]) [phone] Director: Fahad Cast MD Glucose [Mass/Vol] 143 mg/dL High 72-100 [facility] Comment on above: Result Comment: Sharon puncture should occur prior to sulfasalazine administration due to the potential for falsely depressed results. Venipuncture should occur prior to sulfapyridine administration due to the potential falsely elevated results. Baseline assay values before administration of sulfasalazine and sulfapyridine therapy would not be affected. Performed By: #### 1 66888, 359802, 6502055 ####[facility] Qxreioxk11422 [place], [place] [id number]) [phone] Director: Fahad Cast MD GOT 18 unit/L Normal 15-37 [facility] Comment on above: Result Comment: Sharon puncture should occur prior to sulfasalazine and/or sulfapyridine administration due to the potential for falsely depressed results. Baseline assay values before administration of sulfasalazine and sulfapyridine therapy would not be affected. Performed By: #### 1 09221, 515024, 5635106 ####[facility] Hhpzuxrm22875 [place], [place] [id number]) [phone] Director: Fahad Cast MD GPT 19 unit/L Normal 13-56 [facility] Comment on above: Result Comment: Sharon puncture should occur prior to sulfasalazine and/or sulfapyridine administration due to the potential for falsely depressed results. Baseline assay values before administration of sulfasalazine and sulfapyridine therapy would not be affected. Performed By: #### 1 01550, 252023, 9305946 ####[facility] Stnuubej22269 [place] [address] Medical Director: Fahad Cast MD Osmolality [Osmolality] 293 mOsm/kg Normal 275-295 [facility] Comment on above: Performed By: #### 1 31786, 745722, 2804796 ####[facility] Jdhkddpm99143 [place] [address] Medical Director: Fahad Cast MD Potassium [Moles/Vol] 4.0 mmol/L Normal 3.5-5.1 [facility] Comment on above: Performed By: #### 1 46960, 089746, 7458441 ####[facility] Naesfynw43101 [place] [address] Medical Director: Fahad Cast MD Protein [Mass/Vol] 7.4 g/dL Normal 6.0-8.5 [facility] Comment on above: Performed By: #### 1 77307, 008866, 1282962 ####[facility] Wobuqvup22276 [place] [address] Medical Director: Fahad Cast MD Sodium [Moles/Vol] 142 mmol/L Normal 135-145 [facility] Comment on above: Performed By: #### 1 24895, 737718, 6233397 ####[facility] Mfbnwozq00928 [place] [address] Medical Director: Fahad Cast MD Urea nitrogen [Mass/Vol] 32 mg/dL High 10-20 [facility] Comment on above: Performed By: #### 1 35306, 284870, 3685956 ####[facility] Tuotksqa10702 [place] [address] Medical Director: Fahad Cast MD Urea nitrogen/Creatinine [Mass ratio] 26.7 mg/mg Normal [facility] Comment on above: Performed By: #### 1 10991, 444328, 3425574 ####[facility] Xjhtshcx61704 [place] [address] Medical Director: Fahad Cast MD COVID-19 by PCR SWEDon 03-10 COVID-19 by PCR SWED Positive Abnormal [facility] Comment on above: Result Comment: CALL DEANNA SEPULVEDA NG 03/10/2020 18:23:22 EST BY SHF; RBR Performed By: #### C [id number] ####[facility] Zpctpomd15776 [place] [address] [facility] F[facility]ad Cast MD CRP QUANTon 03-10-2020 C-Reactive Protein, Quantitative 0.8 mg/dL High 0.0-0.3 [facility] Comment on above: Performed By: #### 1 63407, [id number], [id number], [id number] #### [facility] [address] [place] [address] Warp Spinner: Fahad Cast MD CT ABD PELVIS W [...] by: Oni Liu MD 03/10/2020 3:50 PM SOLUTIONS ENGINEER Technologist: LIEN BLANCA Dictated By: ONI LIU MD Signed By: ONI LIU MD Signed Out: 03/10/20 16:50:49 Normal [facility] D Dimer HSon 03-10-2020 D Dimer HS 264 ng/mL FEU Normal <=499 [facility] Comment on above: Result Comment: Excl usion of PE and DVT The D Dimer HS assay is reported in ng/ml Fibrinogen Equivalent Units (FEU). Per project manager/team coach?s instructions for use, a value less than 500ng/ml (FEU) may help to exclude DVT and /or PE in outpatients when the assay is used with a clinical pretest probability assessment. D-Dimer used for DIC Screens Assay results should be used with other information, including the clinical context in forming a diagnosis. Performed By: #### 1 44935, [id number], [id number], [id number] #### [facility] [address] [place] [address] Warp Spinner: Fahad Cast MD ED Physician Reporton 2019 [...] Line Saline Flush: 3 mL, IV Push, [id number] Documented Medications Documented Eliquis 5 mg oral [...] Interp, Sinus rhythm with first-degree AV block, NV interval 256, QT/QTc/433, incomplete right bundle branch [...] /100WBC NA Lymph % 12.7 % NA [place] % 8.4 % NA Neutrophil % 76.4 % NA Eosin % 1.8 % NA Basos % 0.6 % NA Lymph Count 1.05 x1000 LOW [place] Count 0.70 x1000 NORMAL Neutrophil Count (ANC) [...] by: Monae Hernandez MD 03/10/2020 1:58 PM SOLUTIONS ENGINEER Signed By: MONAE HERNANDEZ MD CT ABD [...] by: Oni Liu MD 03/10/2020 3:50 PM SOLUTIONS ENGINEER Signed By: ONI LIU MD . Notes: [...] Course: improving. Impression and Plan Diagnosis Syncope ([id number] R55, Working, Medical) Plan Condition: Stable. Disposition: [...] accurately records my words and actions.. Normal [facility] ED Pre-Arrival Formon 2019 ED Pre-Arrival Form Pre-Arrival Summary Name: STR, Current Date: 03/10/2020 13:52:19 EST Gender: Date of : Age: Pre-Arrival Type: EMS ETA: 03/10/2020 14:15:00 EST Primary Care Physician: Presenting Problem: Pre-Arrival User: Neil Vázquez RN Referring Source: Location: 1 [facility] Emergency Department [address] [place] [address]. [place] [address] Notes: Vital Signs: Doctor Call Back: DNR Status: Miscellaneous Issues: Normal [facility] ED Progress Noteon 0 ED Progress Note report not put in by previous rn pt here for syncopal episode after diarrhea episode pt has hx of afib. pt covid+ report called to neil silva will come get pt Normal [facility] FERRITINon 03-10-2020 Ferritin [Mass/Vol] 32 ng/mL Normal 8-252 [facility] Comment on above: Performed By: #### 1 07455, [id number], [id number], [id number] #### [facility] [address] [place] [address] Warp Spinner: Fahad Cast MD HEMOon 03-10-2020 DIFF? No Normal [facility] Comment on above: Performed By: #### 1 97595, 504677, 0269970 ####[facility] Ubgzqvxg87244 [place] [address] Medical Director: Fahad Cast MD Erythrocyte distribution width (RBC) [Ratio] 14.5 % Normal 11.5-14.5 [facility] Comment on above: Performed By: #### 1 50708, 041908, 9751774 ####[facility] Zqqlygbs90347 [place] [address] Medical Director: Fahad Cast MD Hematocrit (Bld) [Volume fraction] 35.8 % Low 36.0-46.0 [facility] Comment on above: Performed By: #### 1 23255, 540113, 2373595 ####[facility] Fxrolojh12341 [place] [address] Medical Director: Fahad Cast MD Hemoglobin (Bld) [Mass/Vol] 11.7 g/dL Low 12.0-16.0 [facility] Comment on above: Performed By: #### 1 20526, 940268, 3364327 ####[facility] Iffuzucy21612 [place] [address] Medical Director: Fahad Cast MD MCH (RBC) [Entitic mass] 29.4 pg Normal 27.0-34.0 [facility] Comment on above: Performed By: #### 1 46783, 962655, 4918026 ####[facility] Bsbryltr58289 [place] [address] Medical Director: Fahad Cast MD MCHC (RBC) [Mass/Vol] 32.7 g/dL Normal 32.0-37.0 [facility] Comment on above: Performed By: #### 1 27514, 578463, 5664694 ####[facility] Jewkaxww59164 [place] [address] Medical Director: Fahad Cast MD MCV (RBC) [Entitic vol] 89.8 fL Normal 80.0-100.0 [facility] Comment on above: Performed By: #### 1 45419, 512550, 7929390 ####[facility] [address] [place] [address] Medical Director: Fahad Cast MD Nucleated RBC (Bld) [#/Vol] 0 /100WBC Normal [facility] Comment on above: Performed By: #### 1 99676, 193147, 7807660 ####[facility] [address] [place], [place] [address] Medical Director: Fahad Cast MD Platelet mean volume (Bld) [Entitic vol] 6.7 fL Low 7.4-10.4 [facility] Comment on above: Performed By: #### 1 52198, 509713, 7889545 ####[facility] [address] [place] [address] Medical Director: Fahad Cast MD Platelets (Bld) [#/Vol] 252 x1000 Normal 150-450 [facility] Comment on above: Performed By: #### 1 95949, 517755, 8658723 ####[facility] [address] [place] [address] Medical Director: Fahad Cast MD RBC (Bld) [#/Vol] 3.99 x10 Low 4.20-5.40 [facility] Comment on above: Result Comment: Note : RBC morphology is normal unless otherwise stated. Evaluation performed only if differential is requested. Performed By: #### 1 60431, 616366, 9091808 ####[facility] Ankplxyq66706 [place] [address] Medical Director: Fahad Cast MD WBC (Bld) [#/Vol] 8.3 10*3/uL Normal [facility] Comment on above: Performed By: #### 1 42093, 727223, 2424922 ####[facility] Sqewccse02517 [place] [address] Medical Director: Fahad Cast MD WBC (Bld) [#/Vol] 8.3 x10 Normal 4.5-11.0 [facility] Comment on above: Performed By: #### 1 53385, 697610, 2005532 ####[facility] Cxmbsmro09466 [place] [address] Medical Director: Fahad Cast MD History and [...] ppx: On Eliquis OT MESA on Normal [facility] LACTATEon 03-10-2020 Lactate [Moles/Vol] 1.8 mmol/L Normal 0.4-2.0 [facility] Comment on above: Performed By: #### 1 01629 #### [facility] [address] [place] [address] Warp Spinner: Fahad Cast MD LIPon 03-10-2020 Lipase [Catalytic activity/Vol] 135 unit/L Normal 73-393 [facility] Comment on above: Performed By: #### 1 49148, 837701, 332345 ####[facility] Dhlhucnh93210 [place] [address] Medical Director: Fahad Cast MD MG LEVELon 03-10-2020 Magnesium [Mass/Vol] 1.9 mg/dL Normal 1.6-2.6 [facility] Comment on above: Performed By: #### 1 95481, 512669, 568432 ####[facility] Nmevhkys08912 [place] [address] Medical Director: Fahad Cast MD PCTon 03-10-2020 Procalcitonin <0.05 Normal [facility] Comment on above: Result Comment: INTE [...] or septic shock. Performed By: #### 1 01024, [id number], [id number], [id number] #### [facility] [address] [place] [address] Warp Spinner: Fahad Cast MD TROPONINon 03-10-2020 Troponin I.cardiac [Mass/Vol] ng/mL Normal 0.000-0.099 [facility] Comment on above: Result Comment: This test is a quantitative determination of cardiac troponin I. High levels of serum biotin may interfere with this test. Performed By: #### 1 94180, 915507, 020502 ####[facility] Clrasevl78936 [place], [place] [id number] Medical Director: Fahad Cast MD XR CHEST [...] by: Monae Hernandez MD 03/10/2020 1:58 PM SOLUTIONS ENGINEER Technologist: TSTHANG Dictated By: MONAE HERNANDEZ MD Signed By: MONAE HERNANDEZ MD Signed Out: 03/10/20 14:58:26 Normal [facility] Vital Signs Date Time Vital Sign Value Performing Clinician Facility 11-08-2024 08:34-0400 Body height 165.1 cm Radha HANEY Work Phone: [facility] 11-08-2024 08:34-0400 Body mass index (BMI) [Ratio] 29.62 kg/m2 Radha HANEY Work Phone: [facility] 11-08-2024 08:34-0400 Body weight 80.74 kg Radha HANEY Work Phone: [facility] 11-08-2024 08:34-0400 Diastolic blood pressure 78 mm[Hg] Radha HANEY Work Phone: [facility] 11-08-2024 08:34-0400 Heart rate 55 /min Radha HANEY Work Phone: [facility] 11-08-2024 08:34-0400 SaO2% (BldA) [Mass fraction] 96 % Radha HANEY Work Phone: [facility] 11-08-2024 08:34-0400 Systolic blood pressure 130 mm[Hg] Radha HANEY Work Phone: [facility] 07-14-2024 13:15-0400 Body height 165.1 cm Paula Amari HANEY Work Phone: [facility] 07-14-2024 13:15-0400 Body mass index (BMI) [Ratio] 27.96 kg/m2 Paula Barrera SNAPPER ON-GENERAL SALES MANAGER Work Phone: [facility] 07-14-2024 13:15-0400 Body weight 76.2 kg Paula Barrera SNAPPER ON-GENERAL SALES MANAGER Work Phone: [facility] 06-22-2024 12:54-0500 Blood Pressure Location Maria E Gutierreza [facility] 06-22-2024 12:54-0500 Diastolic blood pressure 55 mm[Hg] Maria E Jacqui [facility] 06-22-2024 12:54-0500 Heart rate 56 /min Maria E Jacqui [facility] 06-22-2024 12:54-0500 Respiratory rate 18 /min Maria E Gutierreza [facility] 06-22-2024 12:54-0500 Systolic blood pressure 125 mm[Hg] Maria E Jacqui [facility] 05-09-2024 09:17-0500 Body height 165.1 cm [facility] 05-09-2024 09:17-0500 Body mass index (BMI) [Ratio] 29.1 kg/m2 [facility] 05-09-2024 09:17-0500 Body weight 79.37 kg [facility] 05-09-2024 09:17-0500 Diastolic blood pressure 70 mm[Hg] [facility] 05-09-2024 09:17-0500 Heart rate 58 /min [facility] 05-09-2024 09:17-0500 Systolic blood pressure 116 mm[Hg] [facility] 04-30-2024 10:29-0500 Body height 165.1 cm [facility] 04-30-2024 10:29-0500 Body mass index (BMI) [Ratio] 29.1 kg/m2 [facility] 04-30-2024 10:050 Body temperature 99.2 [degF] [facility] 04-30-2024 10:29050 Body weight 79.43 kg [facility] 04-30-2024 10:29-050 Diastolic blood pressure 75 mm[Hg] [facility] 04-30-2024 10:29-0500 Heart rate 58 /min [facility] 04-30-2024 10:290500 Respiratory rate 16 /min [facility] 04-30-2024 10:290500 SaO2% (BldA) [Mass fraction] 94 % [facility] 04-30-2024 10:29-050 Systolic blood pressure 146 mm[Hg] [facility] 02-01-2024 11:13-0400 Body height 165.1 cm [facility] 02-01-2024 11:13-0400 Body mass index (BMI) [Ratio] 28.3 kg/m2 [facility] 02-01-2024 11:13-0400 Body weight 77.11 kg [facility] 02-01-2024 11:13-0400 Diastolic blood pressure 72 mm[Hg] [facility] 02-01-2024 11:13-0400 Heart rate 60 /min [facility] 02-01-2024 11:13-0400 Systolic blood pressure 134 mm[Hg] [facility] 11-26-2023 14:08-0400 Body height 165.1 cm Miko Ohara MD Work Phone: [facility] 11-26-2023 14:08-0400 Body mass index (BMI) [Ratio] 27.96 kg/m2 Miko Ohara MD Work Phone: [facility] 11-26-2023 14:08-0400 Body temperature 97 [degF] Miko Ohara MD Work Phone: [facility] 11-26-2023 14:08-0400 Body weight 76.2 kg Miko Ohara MD Work Phone: [facility] 11-26-2023 09:56-0400 Body height 165.1 cm Mainor Post MD Work Phone: [facility] 11-26-2023 09:56-0400 Body mass index (BMI) [Ratio] 28.12 kg/m2 Mainor Post MD Work Phone: [facility] 11-26-2023 09:56-0400 Body weight 76.66 kg Mainor Post MD Work Phone: [facility] 11-26-2023 09:56-0400 Diastolic blood pressure 76 mm[Hg] Mainor Post MD Work Phone: [facility] 11-26-2023 09:56-0400 Heart rate 56 /min Mainor Post MD Work Phone: [facility] 11-26-2023 09:56-0400 Systolic blood pressure 124 mm[Hg] Mainor Post MD Work Phone: [facility] 10-28-2023 08:41-0400 Body height 165.1 cm [facility] 10-28-2023 08:41-0400 Body mass index (BMI) [Ratio] 27.9 kg/m2 [facility] 10-28-2023 08:41-0400 Body weight 76.2 kg [facility] 10-28-2023 08:41-0400 Diastolic blood pressure 68 mm[Hg] [facility] 10-28-2023 08:41-0400 Heart rate 58 /min [facility] 10-28-2023 08:41-0400 Systolic blood pressure 106 mm[Hg] [facility] 08-20-2023 14:38-0400 Body height 165.1 cm Divine Dougherty Work Phone: [facility] 08-20-2023 14:38-0400 Body mass index (BMI) [Ratio] 27.96 kg/m2 Divine Dougherty Work Phone: [facility] 08-20-2023 14:38-0400 Body weight 76.2 kg Divine Dougherty Work Phone: [facility] 07-23-2023 14:45-0400 Body height 165.1 cm Divine Dougherty Work Phone: [facility] 07-23-2023 14:45-0400 Body mass index (BMI) [Ratio] 27.96 kg/m2 Divine Dougherty Work Phone: [facility] 07-23-2023 14:45-0400 Body weight 76.2 kg Divine Dougherty Work Phone: [facility] 2023 15:34-0500 Body temperature 97.9 [degF] Miko Ohara MD Work Phone: [facility] 2023 15:34-0500 Diastolic blood pressure 53 mm[Hg] Miko Ohara MD Work Phone: [facility] 2023 15:34-0500 Heart rate 80 /min Miko Ohara MD Work Phone: [facility] 2023 15:34-0500 Respiratory rate 16 /min Miko Ohara MD Work Phone: [facility] 2023 15:34-0500 SaO2% (BldA) [Mass fraction] 98 % Miko Ohara MD Work Phone: [facility] 2023 15:34-0500 Systolic blood pressure 110 mm[Hg] Miko Ohara MD Work Phone: [facility] 07-07-2023 16:39-0500 Body height 165.1 cm Miko Ohara MD Work Phone: [facility] 07-07-2023 16:39-0500 Body mass index (BMI) [Ratio] 28.02 kg/m2 Miko Ohara MD Work Phone: [facility] 07-07-2023 16:39-0500 Body weight 76.39 kg Miko Ohara MD Work Phone: [facility] 06-18-2023 14:31-0500 Body height 165.1 cm [facility] 06-18-2023 14:31-0500 Body mass index (BMI) [Ratio] 28.12 kg/m2 Miko Ohara MD Work Phone: [facility] 06-18-2023 14:31-0500 Body weight 76.66 kg Miko Ohara MD Work Phone: [facility] 06-02-2023 11:19-0500 Body height 165.1 cm Mundo Diaz MD Work Phone: [facility] 06-02-2023 11:19-0500 Body mass index (BMI) [Ratio] 28.12 kg/m2 Mundo Diaz MD Work Phone: [facility] 06-02-2023 11:19-0500 Body weight 76.66 kg Mundo Diaz MD Work Phone: [facility] 06-02-2023 11:19-0500 Diastolic blood pressure 68 mm[Hg] Mundo Diaz MD Work Phone: [facility] 06-02-2023 11:19-0500 Heart rate 62 /min Mundo Diaz MD Work Phone: [facility] 06-02-2023 11:19-0500 SaO2% (BldA) [Mass fraction] 99 % Mundo Diaz MD Work Phone: [facility] 06-02-2023 11:19-0500 Systolic blood pressure 106 mm[Hg] Mundo Diaz MD Work Phone: [facility] 05-14-2023 09:38-0500 Body height 165.1 cm Miko Ohara MD Work Phone: [facility] 05-14-2023 09:38-0500 Body mass index (BMI) [Ratio] 29.12 kg/m2 Miko Ohara MD Work Phone: [employer] 05-14-2023 09:38-0500 Body temperature 98.2 [degF] Miko Ohara MD Work Phone: [employer] 05-14-2023 09:38-0500 Body weight 79.38 kg Miko Ohara MD Work Phone: [employer] 10-30-2022 14:45-0400 Body height 165.1 cm Elliot Starks Other [employer] Other 10-30-2022 14:45-0400 Body mass index (BMI) [Ratio] 28.4 kg/m2 Elliot Starks Other [employer] Other 10-30-2022 14:45-0400 Body weight 77.43 kg Elliot Starks Other [employer] Other 10-30-2022 14:45-0400 Diastolic blood pressure 66 mm[Hg] Elliot Starks Other [employer] Other 10-30-2022 14:45-0400 Systolic blood pressure 123 mm[Hg] Elliot Starks Other [employer] Other 06-04-2022 11:30-0500 Body height 165.1 cm Elliot Starks Other [employer] Other 06-04-2022 11:30-0500 Body mass index (BMI) [Ratio] 28.29 kg/m2 Elliot Starks Other [employer] Other 06-04-2022 11:30-0500 Body weight 77.11 kg Elliot Starks Other [employer] Other 06-04-2022 11:30-0500 Diastolic blood pressure 64 mm[Hg] Elliot Starks Other [employer] Other 06-04-2022 11:30-0500 SaO2% (BldA) [Mass fraction] 99 % Elliot Starks Other [employer] Other 06-04-2022 11:30-0500 Systolic blood pressure 104 mm[Hg] Elliot Starks Other [employer] Other Encounters Encounter Date Encounter Type Care Provider Facility Start: 01-25-2025 ambulatory Maria E Osman Facility:[facility] Start: 11-29-2024 End: 11-29-2024 ambulatory Elliot Starks MD Work Phone: [facility] Work Phone: Start: 11-29-2024 End: 11-29-2024 Patient encounter procedure Elliot Starks MD -[facility] Work Phone: Start: 11-24-2024 End: 11-29-2024 Refill Jack Smith SNAPPER ON-GENERAL SALES MANAGER Work Phone: [facility] Comment on above: Med Refill Start: 11-09-2024 ambulatory [facility] Start: 11-08-2024 ambulatory [facility] Start: 11-08-2024 End: 11-08-2024 Office outpatient visit 15 minutes Radha Mart SNAPPER ON-GENERAL SALES MANAGER Work Phone: [facility] Comment on above: Paroxysmal atrial fi brillation (CMS-HCC) (Primary Dx); Primary hypertension; Palpitations Start: 11-08-2024 End: 11-16-2024 ambulatory [facility] Comment on above: Med Refill Start: 11-01-2024 End: 11-03-2024 Refill Divine Kaur SNAPPER ON-GENERAL SALES MANAGER Work Phone: [facility] Comment on above: Med Refill Start: 10-31-2024 End: 10-31-2024 ambulatory Daisy Liz MD Facility:[facility] Start: 10-26-2024 End: 10-26-2024 ambulatory Alfreda Miller Facility:[facility] Start: 10-26-2024 End: 10-26-2024 Patient encounter procedure Maria E Jacqui [facility] Start: 09-19-2024 End: 09-19-2024 ambulatory Alfreda DericLobo Miller Facility:[facility] Start: 09-19-2024 End: 09-19-2024 Patient encounter procedure Alfreda DericLobo Moraestrista [facility] Start: 09-12-2024 End: 09-12-2024 ambulatory Jean Pierre MARTE Facility:[facility] Start: 09-12-2024 End: 09-12-2024 ambulatory Alfreda MLobo Moraestrista Facility:[facility] Start: 09-12-2024 End: 09-12-2024 Patient encounter procedure Alfreda DericLobo Moraese [facility] Start: 08-22-2024 End: 08-22-2024 ambulatory Daisy Liz MD Facility:[facility] Start: 08-07-2024 End: 08-10-2024 Refill Vinicio Causey PA-C Work Phone: [facility] Comment on above: Med Refill Start: 08-03-2024 End: 08-04-2024 Refill Rosangela HANEY Work Phone: [facility] Comment on above: Med Refill Start: 07-27-2024 End: 07-28-2024 Refill Sandre Pollack RN [facility] Comment on above: Med Refill Start: 07-20-2024 End: 07-27-2024 Refill Miko Vasquez SNAPPER ON-GENERAL SALES MANAGER Work Phone: [facility] Comment on above: Med Refill Start: 07-20-2024 ambulatory Alfreda Miller Facility:[facility] Start: 07-14-2024 End: 07-14-2024 Postop follow up visit related to original px Paula Barrera APRN-AUSTEN Work Phone: [facility] Comment on above: Hx of total hip arth roplasty, right (Primary Dx) Start: 07-14-2024 End: 07-14-2024 Subsequent hospital visit by physician Paula Barrera APRN-AUSTEN Work Phone: [facility] Start: 07-14-2024 ambulatory [facility] Start: 06-30-2024 End: 07-06-2024 Refill Michael Castanon APRN-GENERAL SALES MANAGER Work Phone: [email or web address] Comment on above: Med Refill Start: 06-22-2024 End: 07-26-2024 Pre-admission assessment Alfreda Miller [facility] Start: 06-22-2024 End: 06-22-2024 ambulatory Maria E Osman Facility:[facility] Start: 06-22-2024 End: 06-22-2024 Lab Drop off Maria E Osman [facility] Start: 06-22-2024 End: 06-22-2024 ambulatory Maria E Jacqui Facility:[facility] Start: 06-22-2024 End: 06-22-2024 Patient encounter procedure Maria E Osman [facility] Start: 06-21-2024 End: 06-21-[address] [facility] Work Phone: Start: 06-21-2024 End: 06-21-2024 [facility] Work Phone: Start: 05-11-2024 Non-patient / [facility]visit [facility] Work Phone: Start: 05-09-2024 End: 05-09-[address] [facility] Work Phone: Start: 05-09-2024 End: 05-09-2024 Patient encounter procedure [facility] Work Phone: Start: 04-30-2024 End: 04-30-2024 [facility] encounter [facility] Work Phone: Start: 04-04-2024 End: 04-04-2024 ambulatory Daisy Liz MD Facility:[facility] Start: 02-01-2024 End: 02-01-[address] [facility] Work Phone: Start: 02-01-2024 End: 02-01-2024 Patient encounter procedure [facility] Work Phone: Start: 01-02-2024 End: 01-05-2024 Refill Rosangela Montague SNAPPER ON-GENERAL SALES MANAGER [facility] Comment on above: Med Refill Start: 12-14-2023 End: 12-14-2023 ambulatory Daisy Liz MD Facility:[facility] Start: 11-26-2023 End: 11-26-2023 Subsequent hospital visit by physician Miko Ohara MD Work Phone: [facility] Start: 11-26-2023 ambulatory MIKO OHARA [facility] Start: 11-26-2023 End: 11-26-2023 Office outpatient visit 15 minutes Miko Ohara MD Work Phone: [facility] Comment on above: Hx of total hip arth roplasty, right (Primary Dx) Paroxysmal atrial fi brillation (CMS-HCC) (Primary Dx); Unstable angina (CMS-HCC); SOB (shortness of breath) Start: 11-25-2023 End: 11-25-2023 Telephone encounter [facility] Start: 10-28-2023 End: 10-28-[address] [facility] Work Phone: Start: 10-28-2023 End: 10-28-2023 Patient encounter [facility] Work Phone: Start: 10-19-2023 End: 10-26-2023 Refill Mike Craft MD Work Phone: [facility] Comment on above: Med Refill Start: 09-17-2023 Telephone encounter Matt Duron Hematology/Oncology Comment on above: Yearly Exam With Shane rodriguez Start: 08-20-2023 End: 08-20-2023 Subsequent hospital visit by physician Divine Dougherty Work Phone: [facility] Start: 08-20-2023 ambulatory DIVINE DOUGHERTY [facility] Start: 08-20-2023 End: 08-20-2023 Postop follow up visit related to original px Divine Dougherty Work Phone: [facility] Comment on above: Right hip pain (Prim hayden Dx) Start: 08-20-2023 ambulatory [facility] Start: 08-10-2023 End: 08-13-2023 Refill Divine Kaur SNAPPER ON-GENERAL SALES MANAGER Work Phone: [facility] Comment on above: Med Refill Start: 07-23-2023 End: 07-23-2023 Postop follow up visit related to original px Divine Dougherty Work Phone: [facility] Comment on above: Tear of gluteus mini mus tendon, right, initial encounter (Primary Dx) Start: 07-23-2023 End: 07-23-2023 Subsequent hospital visit by physician Divine Dougherty Work Phone: [facility] Start: 07-23-2023 ambulatory DIVINE DOUGHERTY [facility] Start: 07-17-2023 Refill Mike galloway MD Work Phone: [facility] Comment on above: Med Refill Start: 07-15-2023 Telephone encounter Ashia [facility] Start: 07-07-2023 End: 2023 Evaluation and management of inpatient Miko Ohara MD Work Phone: [facility] Comment on above: Status post revision of total hip Start: 07-07-2023 End: 2023 Patient encounter status Miko Ohara MD Work Phone: [facility] Start: 07-01-2023 Patient encounter status [facility] Start: 07-01-2023 Preprocedural examin ation done Elliot Starks MD Work Phone: [facility] Start: 06-19-2023 Telephone encounter Jacqueline Esc[facility] Comment on above: Pre op clearance Start: 06-18-2023 End: 06-18-2023 Office outpatient visit 40 minutes Miko Ohara MD Work Phone: [facility] Comment on above: Right hip pain (Prim hayden Dx) Start: 06-02-2023 End: 06-02-2023 Office outpatient visit 25 minutes Mundo Diaz MD Work Phone: [facility] Comment on above: Paroxysmal atrial fi brillation (CMS-HCC) (Primary Dx); Primary hypertension; Chronic coronary artery disease Start: 05-14-2023 End: 05-14-2023 Office outpatient new 30 minutes Miko Ohara MD Work Phone: [facility] Comment on above: Pain in prosthetic j oint, initial encounter (Primary Dx); Primary osteoarthritis of right hip Start: 05-14-2023 End: 05-14-2023 Subsequent hospital visit by physician Miko Ohara MD Work Phone: [facility] Start: 03-30-2023 (Televisit) Televisit Elliot Starks [facility] De Jesus [facility] Start: 03-30-2023 End: 03-30-2023 ambulatory Elliot Starks Other [employer] Other Start: 02-11-2023 End: 02-11-2023 Patient encounter procedure Alfreda Miller [facility] Start: 12-29-2022 End: 11-08-2024 Preoperative state Mundo Diaz MD [facility] Start: 11-17-2022 End: 11-17-2022 ambulatory Elliot Starks Other [employer] Other Start: 11-17-2022 Telephone encounter Elliot Starks [facility] Start: 10-30-2022 End: 10-30-2022 ambulatory Elliot Starks Other [employer] Other Start: 10-30-2022 Office outpatient vi sit 15 minutes Elliot Starks [facility] Start: 10-29-2022 End: 10-29-2022 ambulatory Elliot Starks Other [employer] Other Start: 10-29-2022 Telephone encounter Elliot Starks [facility] Start: 10-27-2022 Nursing evaluation o f patient and report Elliot Starks [facility] Start: 10-27-2022 End: 10-27-2022 ambulatory Elliot Starks [employer] Other Start: 10-27-2022 End: 10-27-2022 Departed Referred MD Elliot Starks Work Phone: [facility] [place] Work Phone: Start: 09-11-2022 Telephone encounter Matt Duron Hematology/Oncology Comment on above: Orders Start: 08-11-2022 End: 08-11-2022 ambulatory Elliot Starks Other [employer] Other Start: 08-11-2022 Nursing evaluation o f patient and report Elliot Starks [facility] Start: 07-17-2022 (Televisit) Televisit Elliot Starks Jose De Jesus [facility] Start: 07-17-2022 End: 07-17-2022 ambulatory Elliot Starks Other [employer] Other Start: 06-23-2022 End: 06-23-2022 ambulatory Elliot Starks Other [employer] Other Start: 06-23-2022 Nursing evaluation o f patient and report Elliot Starks [facility] Start: 06-09-2022 End: 06-09-[address] ELLIOT STARKS Facility:[facility] Start: 06-06-2022 End: 06-06-2022 ambulatory Elliot Starks Other [employer] Other Start: 06-06-2022 Telephone encounter Elliot Starks [facility] Start: 06-04-2022 End: 06-04-2022 ambulatory Elliot Starks Other [employer] Other Start: 06-04-2022 Office outpatient vi sit 25 minutes Elliot Starks [facility] Start: 05-21-2022 End: 05-21-2022 ambulatory Elliot Starks Other [employer] Other Start: 05-21-2022 Telephone encounter Elliot Starks [facility] Start: 04-26-2022 End: 04-26-[address] ELLIOT STARKS Facility:[facility] Start: 04-14-2022 End: 04-14-[address] ELLIOT STARKS Facility:[facility] Start: 12-18-2021 End: 12-18-2021 ambulatory Melchor Goff [place] Facility:[facility] Start: 10-03-2021 Telephone encounter Andrew black MD Work Phone: Hematology/Oncology Comment on above: Lab Orders Start: 09-26-2021 Telephone encounter Mikaela jimenez RN Work Phone: Hematology/Oncology Comment on above: Radiology Mammogram Start: 12-02-2016 End: 12-03-2016 Ambulatory DEFAULT PHYSICIAN Facility:[facility] Procedures Date Procedure Procedure Detail Performing Clinician Start: 11-08-2024 Ecg routine ecg w/le ast 12 lds w/i&r Radha Mart SNAPPER ON-GENERAL SALES MANAGER Work Phone: Start: 11-08-2024 Follow-up visit Follow-up RADHA MART Start: 2023 Basic metabolic pane l calcium total Chance Mahoney MD Work Phone: Start: 2023 Complete blood count with white cell differential, automated Paula Barrera SNAPPER ON-GENERAL SALES MANAGER Work Phone: Start: 07-07-2023 Cultyp nuc acid amp prb cult/isolate ea orgnism Chance Mahoney MD Work Phone: Start: 07-07-2023 Radiologic examinati on pelvis 1/2 views Paula Barrera SNAPPER ON-GENERAL SALES MANAGER Work Phone: Start: 07-07-2023 Cell count [...] Thompson RN Work Phone: Start: 04-08-2017 Colonoscopy Mundo short MD Work Phone: Start: 01-01-2017 Screening mammography Deric Starks Other Start: 02-01-2013 General examination of patient Elliot Starks Other Appendectomy Alfreda Moraese Bilateral cataracts (disorder) Alfreda Lue Cardiac ablation sys tem (physical object) Alfreda Lue Cholecystectomy Alfreda Lue Insertion of hip prosthesis Alfreda Lue Lumpectomy of left breast Ka thy Aleishae Rotator cuff includi ng muscles and tendons (body structure) Alfreda Lue Screening for malign ant neoplasm of breast Elliot Starks Other Total abdominal hysterectomy Alfreda Lue Plan of Treatment Date Care Activity Detail Author Start: 11-08-2025 Tobacco Screening Tobacco Screening [facility] Start: 01-02-2025 Influenza vaccination Influenza Vacc ine [facility] Start: 11-25-2024 Adult BMI Screening Adult BMI Screen ing [facility] Start: 11-25-2024 Tobacco Screening Tobacco Screening [facility] Start: 11-08-2024 End: 11-08-2024 Patient encounter procedure 11/08/2024 9:00 AM EDT Office Visit [facility] [address] [place] [address] Radha Mart, SNAPPER ON-GENERAL SALES MANAGER [address] [place] [address] [facility] Start: 09-29-2024 Adult BMI Screening Adult BMI Screen ing [facility] Start: 09-29-2024 Screening for malign ant neoplasm of breast MAMMOGRAM SCREENING DISCUSSION [facility] Start: 08-11-2024 Adult BMI Screening Adult BMI Screen ing [facility] Start: 08-11-2024 End: 08-10-2025 CBC panel - Blood by Automated count CBC Lab Routine Paroxysmal atrial fibrillation ([facility]-HCC) Benign hypertension Expected: 08/11/2024 (Approximate), Expires: 08/10/2025 [facility] Comment on above: Expected: 08/11/2024 (Approximate), Expires: 08/10/2025 Start: 08-11-2024 End: 08-10-2025 Comprehensive metabolic 2000 panel - Serum or Plasma CMP Lab Routine Paroxysmal atrial fibrillation ([facility]-HCC) Benign hypertension Expected: 08/11/2024 (Approximate), Expires: 08/10/2025 [facility] [facility] [email or web address] Work Phone: Comment on above: Expected: 08/11/2024 (Approximate), Expires: 08/10/2025 Start: 08-11-2024 End: 08-10-2025 Magnesium [Mass/volume] in Serum or Plasma Magnesium Lab Routine Paroxysmal atrial fibrillation ([facility]-HCC) Benign hypertension Expected: 08/11/2024 (Approximate), Ex[facility]: 08[facility]10/2025 [facility] Comment on above: Expected: 08/11/2024 (Approximate), Expires: 08/10/2025 Start: 08-11-2024 Tobacco Screening Tobacco Screening [facility] Start: 08-08-2024 COVID-19 Vaccine () COVID-19 Vaccine () [facility] Start: 07-14-2024 Tobacco Screening Tobacco Screening [facility] Start: 07-14-2024 End: 07-14-2024 Patient encounter procedure 07/14/2024 11:20 AM EDT Office Visit [facility] [address] [place] [id number] Miko Ohara MD [address] [place] [address] [facility] Start: 07-07-2024 Potassium [Moles/vol ume] in Serum or Plasma POTASSIUM [facility] Start: 06-02-2024 Adult BMI Screening Adult BMI Screen ing [facility] Start: 06-02-2024 Tobacco Screening Tobacco Screening [facility] Start: 02-16-2024 End: 02-16-2024 Patient encounter procedure 02/16/2024 11:00 AM EDT [facility] [address] [place] [id number] Sheridan Kaye MD [address] [place] [address] [facility] Start: 01-03-2024 COVID-19 Vaccine ( season) COVID-19 Vaccine ( season) [facility] Start: 01-03-2024 COVID-19 Vaccine ( season) COVID-19 Vaccine ( season) [facility] Start: 01-03-2024 Influenza vaccination [facility] Start: 11-26-2023 End: 11-26-2023 Patient encounter procedure [facility] Start: 10-09-2023 DIABETES SCREEN [facility] Start: 10-09-2023 Diabetes Screening Diabetes Screenin g [facility] Start: 08-20-2023 End: 08-20-2023 Patient encounter procedure 08/20/2023 2:30 PM EDT Office Visit [facility] [address] [place] [id number] Divine Dougherty [address] [place] [id number] [facility] Start: 08-12-2023 End: 08-12-2023 Patient encounter procedure 08/12/2023 8:00 AM EDT Office Visit [facility] [address] [facility] [address] [place] [address] Miko Vasquez, SNAPPER ON-GENERAL SALES MANAGER [address] [place] [address] [facility] Start: 07-23-2023 End: 07-23-2023 Patient encounter procedure 07/23/2023 2:30 PM EDT Office Visit [facility] [address] [place] [id number] Divine Dougherty [address] [place] [address] [facility] Start: 07-07-2023 End: 07-07-2023 Evaluation and management of inpatient [facility] Comment on above: Tear of rotator [...] 06/25/2023 10:00 AM EST Pre-Operative Nurse Assessment [facility] Pre Admission [address] [place] [phone] Pre-op testing (Primary Dx); Essential (primary) hypertension; Abnormal finding of blood chemistry, unspecified; Abnormal coagulation profile [facility] Pre Admission Comment on above: Pre-op testing (Prim hayden Dx); Essential (primary) hypertension; Abnormal finding of blood chemistry, unspecified; Abnormal coagulation profile Start: 06-13-2023 COVID-19 Vaccine ( season) COVID-19 Vaccine ( season) [facility] Start: 05-28-2023 End: 05-28-2023 Patient encounter procedure 05/28/2023 11:00 AM EST Office Visit [facility] [address] [place] [address] Peter Gardiner DO [address] [place] [address] [facility] Start: 05-14-2023 End: 05-14-2024 MR Hip - right WO contrast MRI HIP RIGHT WITHOUT CONTRAST Imaging Routine Pain in prosthetic joint, initial encounter Expected: 05/14/2023, Expires: 05/14/2024 [facility] Comment on above: Expected: 05/14/2023 , Expires: 05/14/2024 Start: 05-04-2023 Advance Directive Discussion Advance Directive Discussion [facility] Start: 05-04-2023 Behavioral Health Screening Behavioral Health Screening [facility] Start: 01-02-2023 Covid-19 Vaccine ( season) Covid-19 Vaccine ( season) [facility] Start: 01-02-2023 COVID-19 VACCINE ( season) COVID-19 VACCINE ( season) [facility] Start: 01-02-2023 Influenza vaccination INFLUENZA (Sea son Ended) [facility] Start: 10-27-2022 Bacteria identified in Urine by Culture [facility] Start: 05-04-2022 ADVANCE DIRECTIVE DISCUSSION ADVANCE DIRECTIVE DISCUSSION [facility] Start: 05-04-2022 DEPRESSION ASSESSMENT DEPRESSION ASS ESSMENT [facility] Start: 04-08-2022 Screening for malign ant neoplasm of colon Colonoscopy [facility] Start: 01-02-2022 Influenza vaccination INFLUENZA (Sea son Ended) [facility] Start: 10-07-2021 End: 12-07-2021 Cancer Ag 27-29 [Units/volume] in Serum or Plasma CA 27.29 BLOOD Lab Routine Malignant neoplasm of upper-outer quadrant of left breast in female, estrogen receptor positive (HCC) Expected: 10/07/2021, Expires: 12/07/2021 [facility] Work Phone: Comment on above: Expected: 10/07/2021 , Expires: 12/07/2021 Start: 10-07-2021 End: 12-07-2021 CBC W Auto Differential panel - Blood CBC + DIFF Lab Routine Malignant neoplasm of upper-outer quadrant of left breast in female, estrogen receptor positive (HCC) Expected: 10/07/2021, Expires: 12/07/2021 [facility] Work Phone: Comment on above: Expected: 10/07/2021 , Expires: 12/07/2021 Start: 10-07-2021 End: 12-07-2021 Comprehensive metabolic 2000 panel - Serum or Plasma COMP METABOLIC PANEL Lab Routine Malignant neoplasm of upper-outer quadrant of left breast in female, estrogen receptor positive (HCC) Expected: 10/07/2021, Expires: 12/07/2021 [facility] Work Phone: Comment on above: Expected: [...] Pfizer series) [facility] Start: 01-05-2019 Pneumococcal Vaccine : 65+ (2 of 2 - PCV) Pneumococcal Vaccine: 65+ (2 of 2 - PCV) [facility] Start: 01-05-2019 PNEUMOCOCCAL: 65+ (2 - PCV) PNEUMOCOCCAL: 65+ (2 - PCV) [facility] Start: 07-07-2012 BONE DENSITY BONE DENSITY [facility] Start: 07-07-2012 Fall Risk Screening Fall Risk Screen ing [facility] Start: 07-07-2012 Screening for osteoporosis Bone Density Screening [facility] Start: 2007 RSV Vaccine (1 - 1-d ose 60+ series) RSV Vaccine (1 - 1-dose 60+ series) [facility] Start: 07-07-1997 Administration of varicella zoster vaccine Zoster (Shingles) Vaccine (1 of 2) [facility] Start: 07-07-1997 SHINGRIX VACCINE (1 of 2) SHINGRIX VACCINE (1 of 2) [facility] Start: 07-07-1997 Zoster vaccine hzv l david for subcutaneous use ZOSTER (SHINGLES) VACCINE (1 of 2) [facility] Start: 07-07-1992 COLOGUARD (FIT-DNA) COLOGUARD (FIT-D NA) [facility] Start: 07-07-1992 Colonoscopy COLONOSCOPY [facility] Start: 07-07-1992 COLORECTAL CANCER SCREENING COLORECTAL CANCER SCREENING [facility] Start: 07-07-[address] COLONOGRAPHY [facility] Start: 07-07-1992 FECAL OCCULT BLOOD FECAL OCCULT BLOO D [facility] Start: 07-07-1992 LIPID SCREEN LIPID SCREEN [facility] Start: 07-07-1992 Screening for malign ant neoplasm of colon COLORECTAL CANCER SCREENING DISCUSSION [facility] Start: 07-07-1992 SIGMOIDOSCOPY SIGMOIDOSCOPY [facility] Start: 1987 Lipid panel LIPID SCREENING [facility] Start: 1987 Screening for malign ant neoplasm of breast MAMMOGRAM SCREENING DISCUSSION [facility] Start: 07-07-1968 Screening for malign ant neoplasm of cervix CERVICAL CANCER SCREENING DISCUSSION [facility] Start: 07-07-1966 DTaP,Tdap and Td Vaccines (1 - Tdap) DTaP,Tdap and Td Vaccines (1 - Tdap) [facility] Start: 07-07-1966 Third diphtheria, tetanus and acellular pertussis (DTaP) vaccination TDAP (ADULT) [facility] Start: 07-07-1966 Urine microalbumin profile [facility] Start: 07-07-1965 Adult BMI Follow Up Plan Adult BMI F ollow Up Plan [facility] Start: 07-07-1965 HEPATITIS C SCREENING HEPATITIS C [facility] Start: 1959 Depression Screening Depression Scre ening [facility] Start: 07-07-1953 PNEUMOCOCCAL: 65+ (1 - PCV) PNEUMOCOCCAL: 65+ (1 - PCV) [facility] Start: 1945 Hepatitis C screening HEPATITI S C VIRUS SCREENING [facility] Start: 1945 Medicare Annual Well ness Visit Medicare Annual Wellness Visit [facility] Start: 1945 Potassium [Moles/vol ume] in Serum or Plasma POTASSIUM [facility] Start: 1945 Screening for osteoporosis DEXA SCAN DISCUSSION [facility] Start: 1945 Tetanus vaccination TETANUS [facility] ANAEROBE CULTURE [facility] Comment on above: Release Upon Orderin g for 1 Occurrences starting 07/07/2023 Bacterial culture an d sensitivity CULTURE WOUND Microbiology Routine 07/07/2023 2:27 PM EST [facility] BODY FLUID CELL COUNT BODY FLUID CELL COUNT Fluids Routine Tear of rotator cuff of right hip, initial encounter 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, initial encounter Release Upon Ordering for 1 Occurrences starting 07/07/2023 [facility] Comment on above: Release Upon Orderin g for 1 Occurrences starting 07/07/2023 End: 08-04-2025 Comprehensive metabolic 2000 panel - Serum or Plasma Comprehensive metabolic panel Lab Routine Primary hypertension 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 ([facility]) 1 Occurrences starting 08/04/2024 until 08/04/2025 [email or web address] Work Phone: Comment on above: 1 Occurrences starti ng 08/04/2024 until 08/04/2025 End: 10-16-2024 DBT Breast - bilateral screening SHANE SCREENING W YAW Radiology Routine Encounter for screening mammogram for malignant neoplasm of breast 1 Occurrences starting 09/17/2023 until 10/16/2024 [facility] Work Phone: Comment on above: 1 Occurrences starti ng 09/17/2023 until 10/16/2024 End: 07-07-2023 Fungus identified in Unspecified specimen by Culture [facility] Comment on above: Release Upon Orderin g for 1 Occurrences starting 07/07/2023 One Time for 1 Occur rences starting 07/07/2023 until 07/07/2023 End: 08-04-2025 Magnesium [Mass/volume] in Serum or Plasma Magnesium Lab Routine Primary hypertension 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 ([facility]) 1 Occurrences starting 08/04/2024 until 08/04/2025 [facility] Comment on above: 1 Occurrences starti ng 08/04/2024 until 08/04/2025 End: 10-26-2022 SHANE SCREENING W YAW SHANE SCREENING W YAW Radiology Routine Encounter for screening mammogram for malignant neoplasm of breast 1 Occurrences starting 09/26/2021 until 10/26/2022 [facility] Work Phone: Comment on above: 1 Occurrences starti ng 09/26/2021 until 10/26/2022 End: 10-11-2023 SHANE SCREENING W YAW SHANE SCREENING W YAW Radiology Routine Encounter for screening mammogram for malignant neoplasm of breast 1 Occurrences starting 09/11/2022 until 10/11/2023 [facility] Work Phone: Comment on above: 1 Occurrences starti ng 09/11/2022 until 10/11/2023 End: 07-07-2023 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 [facility] Comment on above: Release Upon Orderin g for 1 Occurrences starting 07/07/2023 One Time for 1 Occur rences starting 07/07/2023 until 07/07/2023 XR Pelvis and Hip - right Views XR HIP WITH PELVIS RIGHT Imaging Routine Primary osteoarthritis of right hip 05/14/2023 9:20 AM [facility] Work Phone: XR Pelvis and Hip - right Views XR HIP WITH PELVIS RIGHT Imaging Routine Tear of gluteus minimus tendon, right, initial encounter 07/23/2023 2:22 PM EDT [facility] XR Pelvis and Hip - right Views XR HIP WITH PELVIS RIGHT Imaging Routine Right hip pain 08/20/2023 3:17 PM EDT [facility] XR Pelvis and Hip - right Views XR HIP WITH PELVIS RIGHT Imaging Routine Hx of total hip arthroplasty, right 11/26/2023 1:53 PM EDT [facility] XR Pelvis and Hip - right Views XR HIP WITH PELVIS RIGHT Imaging Routine Hx of total hip arthroplasty, right 07/14/2024 1:07 PM EDT [facility] Immunizations Immunization Date Immunization Notes Care Provider Pablo wheat 02-08-2024 influenza virus vaccine, unspecified formulation Maria E Osman [facility] 02-10-2023 influenza virus vaccine, unspecified formulation Alfreda Lutrista [facility] 02-01-2022 influenza virus vaccine, unspecified formulation Alfreda Lue [facility] 08-13-2021 SARS-CoV-2 mRNA (nmpxcjapdqg-pfer-aywiz se) vaccine Aflreda Lue [facility] 01-29-2021 SARS-CoV-2 (COVID-19 ) mRNA BNT-162b2 vax Alfreda Lue [facility] Comment on above: Result Comment: 2022: [id number] 06-20-2020 COVID-19 vaccine, ag e 12+ yr (PFIZER-BIONTECH - [facility]) Mikaela Thompson RN Work Phone: [facility] 05-28-2020 SARS-CoV-2 (COVID-19 ) mRNA BNT-162b2 vax Alfreda Lue [facility] 05-18-2020 COVID-19 vaccine, ag e 12+ yr (PFIZER-BIONTECH - PURPLE TOP) Mikaela Thompson RN Work Phone: [facility] 01-27-2020 influenza virus vaccine, split virus (incl. purified surface antigen) Elliot Starks Other [employer] Other 01-27-2020 influenza virus vaccine, unspecified formulation Alfreda Miller [facility] 01-20-2019 influenza virus vaccine, unspecified formulation Alfreda Lue [facility] 01-20-2019 influenza, high dose seasonal, preservative-free Mikaela Thompson RN Work Phone: [facility] 03-09-2018 influenza virus vaccine, unspecified formulation Alfreda Lue [facility] 01-05-2018 influenza virus vaccine, split virus (incl. purified surface antigen) Elliot Starks Other [employer] Other 01-05-2018 influenza virus vaccine, unspecified formulation Alfreda Lue [facility] 01-05-2018 influenza, high dose seasonal, preservative-free Mikaela Thompson RN Work Phone: [facility] 01-05-2018 pneumococcal polysaccharide vaccine, 23 valent Mikaela Thompson RN Work Phone: [facility] 02-25-2017 influenza virus vaccine, unspecified formulation Alfreda Lue [facility] 02-17-2017 pneumococcal polysaccharide vaccine, 23 valent Alfreda Lue [facility] 02-05-2017 influenza virus vaccine, split virus (incl. purified surface antigen) Elliot Starks Other [employer] Other 02-05-2017 influenza virus vaccine, unspecified formulation Alfreda Lue [facility] 02-05-2017 pneumococcal conjuga te vaccine, 13 valent Alfreda Lue [facility] 02-01-2002 pneumococcal polysaccharide vaccine, 23 radha Elliot Raudel Other [facility] Payers Date Payer Category Payer Private Health Insurance [id number] 2023 Medicare (Managed Care) MEDICARE [employer] PPO [id number] 2022 Self-pay 2021 Medicare HMO [employer] MEDICARE [id number] 2014 Medicare [employer] MEDICARE A ETNA MEDICARE PPO [id number] 2014-Present [phone] [address] [place] [address] [facility] [id number] 2014 Medicare [id number]. [id number] 1959 Medicare [id number] 1947 Unknown [id number] 2.16.840.1.989924.3.579.2. 593 1947 Unknown [id number] 2.16.840.1.052045.3.579.2. 593 1947 Unknown [id number] 2.16.840.1.322422.3.579.2. 593 1947 Unknown [id number] 2.16.840.1.788971.3.579.2. 718 1947 Unknown [id number] 2.16.840.1.789723.3.579.2. 727 1947 Unknown [id number] 2.16.840.1.599921.3.579.2. 727 1947 Unknown [id number] 2.16.840.1.935787.3.579.2. 727 1947 Unknown [id number] 2.16.840.1.874153.3.579.2. 983 1947 Unknown [id number] 2.16.840.1.564198.3.579.2. 983 1947 Unknown [id number] 2.16.840.1.246652.3.579.2. 983 1947 Unknown [id number] 2.16.840.1.426233.3.579.2. 983 1947 Unknown [id number] 2.16.840.1.917332.3.579.2. 983 1947 Unknown [id number] 2.16.840.1.936215.3.579.2. 983 1947 Unknown [id number] 2.16.840.1.786557.3.579.2. 983 1947 Unknown [id number] 2.16.840.1.278615.3.579.2. 983 1947 Unknown [id number] 2.16.840.1.248575.3.579.2. 727 1947 Unknown [id number] 2.16.840.1.013306.3.579.2. 727 1947 Unknown [id number] 2.16.840.1.442098.3.579.2. 727 1947 Unknown [id number] 2.16.840.1.676957.3.579.2. 727 1947 Unknown [id number] 2.16.840.1.360008.3.579.2. 727 1947 Unknown [id number] 2.16.840.1.953660.3.579.2. 1286 1947 Unknown [id number] 2.840.1.993543.3.579.2. 1286 1947 Unknown [id number] 2.16840.1.020575.3.579.2. 1286 1947 Unknown [id number] 2.16840.1.070857.3.579.2. 196 1947 Unknown [id number] 2.16840.1.844111.3.579.2. 196 1947 Unknown [id number] 2.840.1.806477.3.579.2. 196 1947 Unknown [id number] 2.16840.1.654455.3.579.2. 196 Private Health Insurance [employer] [facility] PFFS M [id number] Unknown Unknown [id number] 2.16840.1.040283.3.579.2. 531 Social History Date Type Detail Facility Start: 12-03-2015 End: 11-26-2023 Tobacco smoking status [facility] Ex-smoker [facility] End: 12-05-1990 History of tobacco use Current smoker [facility] Start: 12-03-2015 End: 05-15-2020 Cigarettes smoked current (pack per day) - Reported 1 [facility] Start: 12-03-2015 End: 11-26-2023 Tobacco use and exposure Smokeless tobacco non-user [facility] Start: 10-08-2020 End: 11-08-2024 Alcohol intake Current drinker of alcohol (finding) [facility] Start: 1945 Sex Assigned At Not on file C [facility] Start: 05-15-2020 End: 05-14-2023 Sex Assigned At [facility] End: 12-05-1990 History of tobacco use Cigarette Smoker [facility] Start: 1945 Sex Assigned At Female F [facility] Tobacco smoking status Never [facility] Start: 05-14-2023 Tobacco smoking stat us NHIS Never smoked tobacco [facility] Has the [employer], or [employer] threatened to shut off services in your home in past 12Mo No [facility] (I/We) worried malathi er (my/our) food would run out before (I/we) got money to buy more. Never true [employer] Start: 03-19-2017 End: 06-19-2023 Alcohol Comment social [facility] Start: 12-07-2014 End: 05-09-2024 Sex Female (finding) [facility] Start: 03-31-2022 Tobacco Comment quit in 1989 [facility] Start: 05-09-2018 Gender identity Identifies as female gender (finding) [facility] Sexual Orientation [facility] Medical Equipment Procedure Code Equipment Code Equipment Origin al Text Equipment Identifier Dates Anchors, 5.5 Non Punching - [id number] Start: 07-07-2023 Anchors, 5.5 Non Punching - [id number] Start: 07-07-2023 Functional Status Date Assessment Result Facility 09-19-2024 Functional Status N/A [facility] 06-22-2024 Functional Status N/A [facility] 07-07-2023 Are you deaf, or do you have serious difficulty hearing No 07/07/2023 4:30 PM Marcella Muñoz RN [facility] 07-07-2023 Are you blind, or do you have serious difficulty seeing, even when wearing glasses No 07/07/2023 4:30 PM Marcella Muñoz RN [facility] 07-07-2023 Do you have serious difficulty walking or climbing stairs No 07/07/2023 4:30 PM Marcella Muñoz RN [facility] 07-07-2023 Do you have difficul ty dressing or bathing No 07/07/2023 4:30 PM Marcella Muñoz RN [facility] 07-07-2023 Because of a physica l, mental, or emotional condition, do you have difficulty doing errands alone such as visiting a physician's office or shopping No 07/07/2023 4:30 PM Marcella Muñoz RN [facility] 02-11-2023 Functional Status N/A [facility] Mental Status Date Assessment Result Facility 07-07-2023 Because of a physica l, mental, or emotional condition, do you have serious difficulty concentrating, remembering, or making decisions No 07/07/2023 4:30 PM Marcella Muñoz RN [facility] Clinical Notes 09-26-2021 to 11-24-2024 Telephone Encounter - Leslie Negron RN - 11/24/2024 12:24 AM EDTTelephone Encounter - Leslie Negron RN - 11/24/2024 12:24 AM [facility]N-[facility] - 11/08/2024 9:00 AM EDTPatient Instructions Note Date & Type Note Facility 11-24-2024 Miscellaneous Notes Formattin g of this note might be different from the original. Ov-11/08/24 Cmp-11/08/24 documented in this encounter [facility] 11-24-2024 Telephone encount er Note Ov-11/08/24 Cmp-11/08/24 [facility] 11-08-2024 History of Presen t illness Narrative Bettie Burns Date of visit: 11/08/2024 Date of : [...] tablet (20 mg total) before bedtime. vitamins A,C,B-yhbu-tsgtpb (ICAPS AREDS) 4,296 mcg-226 mg-90 mg capsule [...] palpitations. TTE from 2021 shows EF of 55-60% with no wall motion abnormalities nor significant valvulopathy. [...] office. Past Medical History: Diagnosis Date A-fib ([facility]) hx of Allergic Allergic to certain medications Arrhythmia 12/2016 ATRIAL FIBRILLATION Arthritis Back pain Chronic Nerve ablation 07/12/19 Breast cancer ([facility]) 11/14/2015 LEFT Cataract 02/2019 Removed 03/2019 COVID-19 [...] by Amber Quiñonez MD at [facility] (EP) APPENDECTOMY 1997 ARM SURGERY Both shoulders rotator cuff repair ARTHROSCOPY REPAIR ROTATOR CUFF SHOULDER Right 05/16/2020 Performed by Melchor Rivera DO at [facility] ARTHROSCOPY SHOULDER Right 05/16/2020 Performed by Melchor Rivera DO at [facility] BREAST BIOPSY Left 2016 2016 BREAST LUMPECTOMY Left 11/14/2015 WITH RADIATION BREAST SURGERY Left 2016 lumpectomy CATARACT EXTRACTION CHOLECYSTECTOMY 2001 COLONOSCOPY 2018 Will not need one again Coronary angiogram and left ventricular gram/pressure N/A 08/08/2021 Performed by Bertram Lal MD at [facility] CARDIAC CATH LABS EGD 2017 EYE [...] Needs: No Transportation Needs (07/07/2023) Received from [facility] PRAPARE - Transportation Lack of Transportation (Medical): No Lack of Transportation (Non-Medical): No Physical Activity: Not on file Stress: Not on file Social Connections: Not on file Interpersonal Safety: Not on file Housing Instability: Low Risk (07/07/2023) Received from [facility] Housing Stability Vital Sign Unable to [...] kg (178 lb) SpO2 96% BMI 29.62 kg/m Orders Placed or Reconciled This Encounter [...] STARKS MD Referring Physician: Elliot Starks MD [address] [place] [id number] MEDINA Landry 11/08/24 0926 documented in this encounter [facility] [facility] 11-08-2024 Instructions MEDINA Landry - 11/08/2024 9:00 AM EDT BP and HR are well controlled. Continue cardiac medications. Recommend follow up in one year. Please call the office if you develop new or worsening symptoms and we will see you sooner. documented in this encounter [facility] 11-08-2024 Miscellaneous Notes Formattin g of this note might be different from the original. OV 11/08/24 CMP, CBC 11/08/24 documented in this encounter [facility] 11-08-2024 Telephone encount er Note OV 11/08/24 CMP, CBC 11/08/24 [facility] 11-01-2024 Miscellaneous Notes Formattin g of this note might be different from the original. Overdue labs. Pt has been notified. Ov scheduled 11/08 documented in this encounter [facility] 11-01-2024 Telephone encount er Note Overdue labs. Pt has been notified. Ov scheduled 11/08 [facility] 09-19-2024 Evaluation + Plan note Extrac mary from: Title:- [facility] HOP Note Author:Alfreda Miller MD Date:09/19/24 Impression and Plan Assessment and Plan: Diagnosis: Vaginal atrophy ([id number] N95.2, Discharge, Medical), Recurrent UTI (MWF35-CO N39.0, Discharge, Medical), Mixed incontinence ([id number]-VZ N39.46, Discharge, Medical). 79-year-old female with a [...] fluids recommended Extracted from: Title:Preoperative H&P: EU Author:Paul VILLEGAS, Alfreda Palacios Date:09/19/24 Impression and Plan Impression: cystoscopy and botox 100 units for mixed incontinence Plan: Proceed with planned surgery per clinic note, risks/benefits previously discussed and documented Future Appointments Appointment Date:10/26/2024 08:00:00 AM Scheduled Provider:Maria E Osman PA-C Location:[facility] Appointment Type:URO Office Visit [facility] 05-19-2025 Hospital Discharge instructions Follow Up Care 09/19/2024 08:36:00 With:Maria E Osman PA-C, URL Address: When:Within 3 Month(s) Comments:w/ PVR [facility] 05-19-2025 Hospital Discharge instructions Patient Education 09/19/2024 [...] PVR With:Alfreda Miller Address:Unknown When: Unknown [facility] 05-19-2025 NoteHistory and Physical Patient: BETTIE BURNS Age: 79 years Sex: Female : 1945 Associated Diagnoses: None Author: Alfrdea Miller MD Preoperative Information Indication for procedure [...] 1 month, then 2x a week afterwards, [facility]/pharmacy #[id number], 165, cm, 06/22/24 13:05:00 EST, Height/Length Dosing, 80.7, kg, 06/22/24 13:05:00 EST, Weight Dosing... Keflex 500 mg Cap: 500 mg = 1 cap(s), Oral, q12hr, X 7 day(s), # 14 cap(s), Refills(s) 0, Pharmacy:[facility]/pharmacy #[id number], 165, cm, 06/22/24 13:05:00 EST, Height/Length Dosing, 80.7, kg, 06/22/24 13:05:00 EST, Weight Dosing trospium 60 mg oral capsule, extended release: 60 mg = 1 cap(s), Oral, Bedtime, # 90 tab(s), Refills(s) 3, Pharmacy: [facility], 165, cm, 05/27/23 8:54:00 EST, Height/Length Dosing, 77.5, kg, 05/27/23 8:54:00 EST, Weight Dosing Documented Medications Documented Aleve: Refills(s) 0 BACLOFEN 10 MG TABLET: BACLOFEN 10 MG TABLET Eliquis 5 mg oral tablet: Refills(s) 0 [facility] Vitamin OTC: [facility]TC Potassium Chloride (Vyk-Wabm-Kzg 10) 10 mEq oral tablet, extended release: [...] list: All Problems Anticoagulated / SNOMED CT 483296773 / Confirmed Chronic atrial fibrillation / SNOMED CT 8294201612 / Confirmed Eczema / SNOMED CT 76520020 / Confirmed Former smoker / SNOMED CT 04535844 / Confirmed Frequent UTI / SNOMED CT 887261152 / Confirmed History of breast cancer / SNOMED CT 5196037855 / Confirmed History of malignant neoplasm of breast / SNOMED CT 2725936712 / Confirmed Hypertensive disorder / SNOMED CT 3319770677 / Confirmed Microscopic hematuria / SNOMED CT 426905899 / Confirmed Mixed incontinence / SNOMED CT 41109090 / Confirmed Rectocele / SNOMED CT 5533413237 / Confirmed Histories Past Medical History: No active or resolved past medical history items have been selected or recorded. Family History: Entire family history is negative. Procedure history: Cholecystectomy (56104374). Hip replacement (3971350397). Lumpectomy of left breast (6556418620). Rotator cuff (66938107). ROSA - Total abdominal hysterectomy (331201416). Appendectomy (183011800). Cataracts (1191468651). Cardiac ablation system (8872569968). Social History Social & Psychosocial Habits Tobacco [...] per clinic note, risks/benefits previously discussed and documentedMartin Memorial HospitalComment on above:Result Comment: Electronically Signed By: Lue MD, Alfreda M.\.br\Date and Time Signed: 09/19/24 08:[id number] NoteProgress Note-Physician Patient: BETTIE BURNS Age: 79 [...] 1 month, then 2x a week afterwards, [facility]/pharmacy #[id number], 165, cm, 06/22/24 13:05:00 EST, Height/Length Dosing, 80.7, kg, 06/22/24 13:05:00 EST, Weight Dosing... Keflex 500 mg Cap: 500 mg = 1 cap(s), Oral, q12hr, X 7 day(s), # 14 cap(s), Refills(s) 0, Pharmacy:[facility]/pharmacy #[id number], 165, cm, 06/22/24 13:05:00 EST, Height/Length Dosing, 80.7, kg, 06/22/24 13:05:00 EST, Weight Dosing trospium 60 mg oral capsule, extended release: 60 mg = 1 cap(s), Oral, Bedtime, # 90 tab(s), Refills(s) 3, Pharmacy: [facility], 165, cm, 05/27/23 8:54:00 EST, Height/Length Dosing, 77.5, kg, 05/27/23 8:54:00 EST, Weight Dosing Documented Medications Documented Aleve: Refills(s) 0 BACLOFEN 10 MG TABLET: BACLOFEN 10 MG TABLET Eliquis 5 mg oral tablet: Refills(s) 0 [facility] Vitamin OTC: [facility]TC Potassium Chloride (Nhn-Svsg-Mae 10) 10 mEq oral tablet, extended release: [...] Plan Assessment and Plan: Diagnosis: Vaginal atrophy (KTO43-LK N95.2, Discharge, Medical), Recurrent UTI([id number]-UF N39.0, Discharge, Medical), Mixed incontinence (VCU61-HF N39.46, Discharge, Medical). 79-year-old female with a [...] up CT scan confirmed passage. Increase fluids recommendedMartin Memorial HospitalComment on above:Result Comment: Electronically Signed By: Paul VILLEGAS, Alfreda Palacios\.br\Date and Time Signed: 09/19/24 08:[id number] Note Patient Education Cystoscopy with Botox injection [...] you have a fever over 100 degrees. ???[facility]04-02-2025 Miscellaneous Notes* Telephone Encounter - Leslie Negron RN - 08/03/2024 12:21 AM EDT Ov-11/26/23 Cmp and mg -07/15/23 New cmp and mg order placed and letter sent 08/04/24 documented in this encounterMer[facility]04-02-2025 Telephone encounter Note* Telephone Encounter - Leslie Negron RN - 08/03/2024 12:21 AM EDT Ov-11/26/23 Cmp and mg -07/15/23 New cmp and mg order placed and letter sent 08/04/24 [facility]03-26-20[facility] Miscellaneous Notes* Telephone Encounter - Sander Pollack RN - 07/27/2024 1:57 PM EDT P/c from pt requesting refills to [facility]. OV 11/26/23 07/14/24 MAG, CMP, CBC EKG 08/12/23 documented in this encounterMercy Health [facility]03-26-2025 Telephone encounter Note* Telephone Encounter - Sander Pollack RN - 07/27/2024 1:57 PM EDT P/c from pt requesting refills to [facility]. OV 11/26/23 07/14/24 MAG, CMP, CBC EKG 08/12/23 [facility]03-13-2025 History of Present illness Narrative* Svitlana Hayden - 07/14/2024 2:00 PM EDT Ortho Nurse - Established Patient Intake Room#: 5 Date: 07/14/2024 1:15 PM Patient: Bettie Burns MR#: [id number] : 1945 Age: 79 y.o. 1yr R [...] RADIOFREQUENCY PULSED 09/2018 for a-fib with [facility] APPENDECTOMY BREAST LUMPECTOMY FOOT SURGERY HEART CATHETERIZATION no stents NV ENDOMETRIAL CRYOABLATION W/US & ENDOMETRIAL CR REMOVAL [...] x 1 month, then 2x/week for maintainence, [facility]/pharmacy #[id number], 165, cm, 02/11/23 10:41:00 EDT, [...] x 1 month, then 2x/week for maintainence, [facility]/pharmacy #[id number], 165, cm, 02/11/23 10:41:00 EDT, [...] oxycodone, penicillins, and tramadol. * Paula Barrera APRN-GENERAL SALES MANAGER - 07/14/2024 2:00 PM EDT HPI: Patient [...] 07/14/2024 1:15 PM Patient: Bettie Burns MR#: [id number] : 1945 Age: 79 y.o. 1yr R [...] RADIOFREQUENCY PULSED 09/2018 for a-fib with [facility] APPENDECTOMY BREAST LUMPECTOMY FOOT SURGERY HEART CATHETERIZATION no stents NV ENDOMETRIAL CRYOABLATION W/US & ENDOMETRIAL CR REMOVAL [...] x 1 month, then 2x/week for maintainence, [facility]/pharmacy #[id number], 165, cm, 02/11/23 10:41:00 EDT, [...] x 1 month, then 2x/week for maintainence, [facility]/pharmacy #[id number], 165, cm, 02/11/23 10:41:00 EDT, [...] oxycodone, penicillins, and tramadol. documented in this encounterMercy Health [facility] Hospital02-27-2025 Miscellaneous Notes* Telephone Encounter - Mami Cifuentes RN - 06/30/2024 12:22 AM EST OV 11/26/2023 documented in this encounterMercy Health [facility]02-27-2025 Telephone encounter Note* Telephone Encounter - Mami Cifuentes RN - 06/30/2024 12:22 AM EST OV 11/26/2023 [facility]02-19-2025 Hospital Discharge instructions Patient Education 06/22/2024 [...] Follow these instructions at home: Medicines Take epya-nzb-cmpwike and prescription medicines only as told by [...] or the blood stops without treatment. Take kxro-ehu-kufhnob and prescription medicines only as told by your health care provider. Drink enough fluid to keep your urine pale yellow. This information is not intended to replace advice given to you by your health care provider. Make sure you discuss any questions you have with your health care provider. Document Revised: 12/19/2020 Document Reviewed: 12/19/2020 [employer] Patient Education 2023 [employer]. 06/22/2024 15:04:17 Overactive Bladder, Adult Overactive Bladder, [...] your health care provider. General instructions Take rtek-rwy-gbhowjm and prescription medicines only as told by [...] provider. Document Revised: 01/07/2021 Document Reviewed: 01/07/2021 [employer] Patient Education 2023 [employer]. Follow Up Care 06/22/2024 10:24:57 With:Paul VILLEGAS, PERLA Araujo, URO Address: When: Unknown Comments:F/U pending cystoscopy [facility] 02-19-2025 NotePatient Education Obstetrics and Gynecology [...] health care provider. General instructions ??? Take yond-mhm-aaxnxde and prescription medicines only as told by [...] you drink, and whe (more content not included)...[facility]12-28-2024 Evaluation note* Diagnosis Onset Date Resolution Status Admit Date Acute bilateral otitis media acute April 30, 2024 9:54am [facility] Work Phone: 1(924) 138-115012-28-2024 Evaluation note* Diagnosis Onset Date Resolution Status Admit Date Acute bilateral otitis media acute April 30, 2024 9:54am Acute otitis media with effusion acute May 09 9:07am Insomnia acute May 09, 2 025 9:07am Reaction, situational, acute , to stress acute May 09 9:07am [facility] Work Phone: 1(991) 243-756008-31-2024 Miscellaneous Notes* Telephone Encounter - Jacinta Neri [...] Low 56 Low CM documented in this encounterMercy Health [facility]08-31-2024 Telephone encounter Note* Telephone Encounter - [...] >59 ml/min/1.73sq.m 46 Low 56 Low CM [facility]07-25-2024 History of Present illness Narrative* Hal Fischer - 11/26/2023 2:00 PM EDT Ortho Nurse - Established Patient Intake Room#: 3 --- Patient presents today for 4 month follow-up of RTHA. Patient states that pain is 2/10today. Patient states that she is improved especially with PT, but is still limping more than she anticipated. Patient has been doing PT at [facility] and this helps, says next week is her last session. Patient states that she is due for nerve block in SI joint at [facility] who she seesregularly, states that she needs approval from Dr. Ohara on this. Date: 11/26/2023 2:25 PM Patient: Bettie Burns MR#: [id number] : 1945 Age: 78 y.o. Referring Physician: [...] RADIOFREQUENCY PULSED 09/2018 for a-fib with [facility] APPENDECTOMY BREAST LUMPECTOMY FOOT SURGERY HEART CATHETERIZATION no stents NV ENDOMETRIAL CRYOABLATION W/US & ENDOMETRIAL CR REMOVAL [...] x 1 month, then 2x/week for maintainence, [facility]/pharmacy #[id number], 165, cm, 02/11/23 10:41:00 EDT, [...] x 1 month, then 2x/week for maintainence, [facility]/pharmacy #[id number], 165, cm, 02/11/23 10:41:00 EDT, [...] anticipated. Patient has been doing PT at [facility] and this helps, says next week is her last session. Patient states that she is due for nerve block in SI joint at [facility] who she seesregularly, states that she needs approval from Dr. Ohara on this. Date: 11/26/2023 2:25 PM Patient: Bettie Burns MR#: [id number] : 1945 Age: 78 y.o. Referring Physician: [...] Laterality: Right; Surgeon: Miko Ohara MD; Location: [facility] OR REVISION ARTHROPLASTY HIP BOTH ACETABULAR & FEMORAL COMPONENTS Right 07/07/2023 Laterality: Right; Surgeon: Miko Ohara MD; Location: [facility] OR HIP REPLACEMENT 2021 ABLATION NERVE RADIOFREQUENCY PULSED 09/2018 for a-fib with [facility] APPENDECTOMY BREAST LUMPECTOMY FOOT SURGERY HEART CATHETERIZATION no stents NV ENDOMETRIAL CRYOABLATION W/US & ENDOMETRIAL CR REMOVAL [...] x 1 month, then 2x/week for maintainence, [facility]/pharmacy #[id number], 165, cm, 02/11/23 10:41:00 EDT, [...] x 1 month, then 2x/week for maintainence, [facility]/pharmacy #[id number], 165, cm, 02/11/23 10:41:00 EDT, [...] oxycodone, penicillins, and tramadol. documented in this [facility]07-25-[facility] History of Present illness Narrative* Mainor [...] Burns was seen in follow-up in the [place] office. Records are reviewed. She is a [...] avoidance. Past Medical History: Diagnosis Date A-fib ([facility] [...] by Amber Quiñonez MD at [facility] () ARTHROSCOPY REPAIR ROTATOR CUFF SHOULDER Right 05/16/2020 Performed by Melchor Rivera DO at [facility] ARTHROSCOPY SHOULDER Right 05/16/2020 Performed by Melchor Rivera DO at [facility] BREAST BIOPSY Left 2016 BREAST LUMPECTOMY Left 11/14/2015 WITH RADIATION BREAST SURGERY Left 2013 lumpectomy CATARACT EXTRACTION CHOLECYSTECTOMY COLONOSCOPY Coronary angiogram and left ventricular gram/pressure N/A 08/08/2021 Performed by Bertram Lal MD at [facility] CARDIAC CATH LABS EYE SURGERY lids [...] Needs: No Transportation Needs (07/07/2023) [facility] - Transportation Lack of Transportation (Medical): No Lack of Transportation (Non-Medical): No Physical Activity: Not on file Stress: Not on file Social Connections: Not on file Interpersonal Safety: Not on file Housing Instability: Low Risk (07/07/2023) Received from [facility], [facility] Housing Stability Vital Sign Unable to Pay [...] STARKS MD Referring Physician: Elliot Starks MD [facility] [place] [address] documented in this encounterWashington County Tuberculosis HospitalJack in the Box [id number] Miscellaneous Notes* Telephone Encounter - Medina Jaramillo MA - 11/25/2023 10:56 AM EDT Called patient to remind them to bring their most current copy of their medication list with them to their appt. Patient verbalizes understanding. documented in this encounterMercy [facility]07-24-2024 Telephone encounter Note* Telephone Encounter - Medina Jaramillo MA - 11/25/2023 10:56 AM EDT Called patient to remind them to bring their most current copy of their medication list with them to their appt. Patient verbalizes understanding. [facility]06-17-2024 Miscellaneous Notes* Telephone Encounter - Jacinta Neri RN - 10/19/2023 9:19 AM EDT Last OV 08/25 CMP 07/25 documented in this encounterMercy Health [facility]06-17-2024 Telephone encounter Note* Telephone Encounter - Jacinta Neri RN - 10/19/2023 9:19 AM EDT Last OV 08/25 CMP 07/25 [facility]05-16-2024 Telephone encounter Note* Telephone Encounter - Matt Adams RN - 09/17/2023 1:30 PM EDT Order faxed to [facility] Jul[facility] Pt aware. Matt Adams RN [facility]05-16-2024 Miscellaneous Notes* Telephone Encounter - Matt Adams RN - 09/17/2023 1:30 PM EDT Order faxed to [facility] Julio Pt aware. Matt Adams RN * Telephone Encounter - Matt Adams RN - 09/17/2023 10:18 AM EDT Pt called to request yearly Mammogram order I have pended order as previously completed [phone] [place]/: please review and sign if agreeable Matt Adams RN documented in this encounterU[facility] Center05-16-2024 Telephone encounter Note * Telephone Encounter - Matt Adams RN - 09/17/2023 10:18 AM EDT Pt called to request yearly Mammogram order I have pended order as previously completed Pt requests to fax to Nori Lema [phone] [facility]/: please review and sign if agreeable Matt Adams RN [facility]04-18-2024 History of Present illness Narrative* [...] she is interested in Physcial Therapy through [facility]. Date: 08/20/2023 2:38 PM Patient: Bettie Burns MR#: [id number] : 1945 Age: 78 y.o. Referring Physician: [...] RADIOFREQUENCY PULSED 09/2018 for a-fib with [facility] APPENDECTOMY BREAST LUMPECTOMY FOOT SURGERY HEART CATHETERIZATION no stents NV ENDOMETRIAL CRYOABLATION REMOVAL BILIARY DUCT/GALLBLADDER CALCULI/DEBRIS PERCUTANEOUS [...] x 1 month, then 2x/week for maintainence, [facility]/pharmacy #[id number], 165, cm, 02/11/23 10:41:00 EDT, Height/Length Dosing, [...] arise. All pertinant portions of the clinical landing support specialist documentation was reviewed and I [...] she is interested in Physcial Therapy through [facility]. Date: 08/20/2023 2:38 PM Patient: Bettie Burns MR#: [id number] : 1945 Age: 78 y.o. Referring Physician: Self, Self Insurance: Payor: MEDICARE AET HMO OR PPO / Plan: MEDICARE AET PPO / Product Type: *No Product type* [...] RADIOFREQUENCY PULSED 09/2018 for a-fib with [facility] APPENDECTOMY BREAST LUMPECTOMY FOOT SURGERY HEART CATHETERIZATION no stents NV ENDOMETRIAL CRYOABLATION REMOVAL BILIARY DUCT/GALLBLADDER CALCULI/DEBRIS PERCUTANEOUS [...] x 1 month, then 2x/week for maintainence, [facility]/pharmacy #[id number], 165, cm, 02/11/23 10:41:00 EDT, Height/Length Dosing, [...] oxycodone, penicillins, and tramadol. documented in this encounterMercy Health [facility] Hospital04-08-2024 Miscellaneous Notes* Telephone Encounter - Ray Wills LPN - 08/10/2023 12:45 AM EDT Theresa 08/12/23 Cmp, mg 07/15/23 documented in this encounterMercy Health [facility]04-08-2024 Telephone encounter Note* Telephone Encounter - Ray Wills LPN - 08/10/2023 12:45 AM EDT Theresa 08/12/23 Cmp, mg 07/15/23 [facility]03-21-2024 History of Present illness Narrative* Eva [...] 07/23/2023 2:45 PM Patient: Bettie Burns MR#: [id number] : 1945 Age: 78 y.o. Referring Physician: [...] Laterality: Right; Surgeon: Miko Ohara MD; Location: [facility] OR REVISION ARTHROPLASTY HIP BOTH ACETABULAR & FEMORAL COMPONENTS Right 07/07/2023 Laterality: Right; Surgeon: Miko Ohara MD; Location: [facility] OR HIP REPLACEMENT 2021 ABLATION NERVE RADIOFREQUENCY PULSED 09/2018 for a-fib with [facility] APPENDECTOMY BREAST LUMPECTOMY FOOT SURGERY HEART CATHETERIZATION no stents NV ENDOMETRIAL CRYOABLATION REMOVAL BILIARY DUCT/GALLBLADDER CALCULI/DEBRIS PERCUTANEOUS [...] x 1 month, then 2x/week for maintainence, [facility]/pharmacy #[id number], 165, cm, 02/11/23 10:41:00 EDT, [...] visit. All pertinant portions of the clinical landing support specialist documentation was reviewed. Divine Dougherty I have reviewed the findings of the clinical landing support specialist and agree with their assessment. Divine Dougherty [...] 07/23/2023 2:45 PM Patient: Bettie Burns MR#: [id number] : 1945 Age: 78 y.o. Referring Physician: [...] RADIOFREQUENCY PULSED 09/2018 for a-fib with [facility] APPENDECTOMY BREAST LUMPECTOMY FOOT SURGERY HEART CATHETERIZATION no stents NV ENDOMETRIAL CRYOABLATION REMOVAL BILIARY DUCT/GALLBLADDER CALCULI/DEBRIS PERCUTANEOUS [...] x 1 month, then 2x/week for maintainence, [facility]/pharmacy #[id number], 165, cm, 02/11/23 10:41:00 EDT, Height/Length Dosing, [...] oxycodone, penicillins, and tramadol. documented in this encounterMercy Health [facility] Hospital03-15-2024 Miscellaneous Notes* Telephone Encounter - Estela Bueno RN - 07/17/2023 1:28 AM EDT Dose confirmed with patient documented in this encounterMercy Health [facility]03-15-2024 Telephone encounter Note* Telephone Encounter - Estela Bueno RN - 07/17/2023 1:28 AM EDT Dose confirmed with patient [facility]03-13-2024 Miscellaneous Notes* Telephone Encounter - Ashia [...] she was willing. slm documented in this encounterMercy Health Kings [facility]03-13-2024 Telephone encounter Note* Telephone Encounter - [...] the ER and she was willing. slm [facility]03-06-2024 Miscellaneous Notes* Nursing Notes - Dolly [...] 07, 2023 ATTENDING PHYSICIAN: Miko Ohara M.D. 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 PROCEDURE PERFORMED: Unlisted procedure of right hip and pelvis, dual-row suture anchor repair of 100% massive abductor tear of right hip, work equivalent similar to CPT 82226 Periarticular injection of right hip. ANESTHESIA: General. [...] it as a CPT similar to that, 14566. ATTENDING/ASSISTING PARTICIPATION: This operation could not have been safely performed (without compromising the technical results or length of the procedure) without the assistance of a skilled ophthalmic surgical assistant. A ophthalmic surgical assistant was medically necessary for positioning, retraction [...] OPERATIVE/PROCEDURE NOTE Bettie Burns 77 y.o. female [id number] SURGEON Surgeons and Role: * Miko Ohara MD - Primary HEEL SPRAYER FIRST MEDINA Richardson ANESTHESIOLOGIST MOBILE QA TESTER: Chance Ngo CRNA; PALAK Barrett SURGICAL STAFF Flux Core Welder: Kisha Karimi RN; Whit Govea, RN Nurse [...] Implant Name Type Inv. Item Serial No. Manager Parking Lot No. LRB No. Used Action ANCHORS, 5.5 NON PUNCHING - [id number] ANCHORS, 5.5 NON PUNCHING HIST ARTHREX [id number] Right 1 Implanted ANCHORS, 5.5 NON PUNCHING - [id number] ANCHORS, 5.5 NON PUNCHING HIST ARTHREX [id number] Right 3 Implanted SPECIMENS ID Type Source [...] Miko Ohara MD 07/07/2023 [id number] Paula Barrera APRN-GENERAL SALES MANAGER July 07, 2023 3:28 PM * Nursing Notes - Chelsea Bledsoe RN - 07/07/2023 10:52 AM EST Unable to doppler right dorsalis pedis pulse. documented in this encounterMercy Health [facility] Hospital03-06-2024 Nurse Note* Nursing Notes - Dolly [...] patient discharged home with daughter and . [facility]03-06-[facility] Hospital Discharge instructions* Discharge Instructions* Carmen [...] at all times - Use a leg director of web marketing to get in and out of bed [...] - 2023 12:01 PM EST Contact Office ([phone]) if: > Any falls or injuries > [...] incision or operative leg. documented in this [facility]03-06-2024 History of Present illness Narrative* Carmen [...] for 07/23/23 @ 2:30 pm. * Divine Leos Ela - 2023 7:21 AM EST Total Joint [...] RADIOFREQUENCY PULSED 09/2018 for a-fib with [facility] APPENDECTOMY BREAST LUMPECTOMY FOOT SURGERY HEART CATHETERIZATION no stents NV ENDOMETRIAL CRYOABLATION REMOVAL BILIARY DUCT/GALLBLADDER CALCULI/DEBRIS PERCUTANEOUS [...] 0 Equipment Available wheeled walker;elevated toilet seat;shower chair;optical laboratory mechanic Cognitive Status Examination Orientation Status (Cognition) oriented [...] Supine to Sit, Rehab Eval Level of Loving: Supine/Sit stand-by assist Physical Assist/Nonphysical Assist: Supine/Sit 1 person assist Transfer Skill: Sit to Stand, Rehab Eval Level of Loving: Sit/Stand contact guard Physical Assist/Nonphysical Assist: Sit/Stand 1 person assist Weight-Bearing Restrictions: Sit/Stand toe touch weight-bearing Assistive Device for Transfer: Sit/Stand wheeled walker Upper Body Dressing Level of Loving independent Physical Assist/Nonphysical Assist set-up required Lower Body Dressing Level of Loving maximum assist (25% patients effort) Physical Assist/Nonphysical Assist 1 person assist Assistive Device optical laboratory mechanic General Therapy Interventions Planned Therapy Interventions (OT Eval) ADL retraining;balance training;transfer training Clinical Impression Co-evaluation/co-treatment performed? Yes, combination of simultaneous billable and individual billable skilled care was necessary due to medical complexity and functional deficits Patient Instruction/Education comments Pt instructed on LB dressing techniques donning underwear and shorts min assist in sitting and standing with training on use of optical laboratory mechanic to maintain hip precautions Rehab Potential (OT [...] hygiene training Therapist Information License # [id number] 1. Pt will complete LB dressing SBA 2. Pt will complete sponge bathing min assist 3. Pt will complete toileting MOD I 4. Pt will complete hygiene/grooming standing at sink MOD I 5. Pt will complete walk in shower transfer CGA * Mayra Kaur PT - 07/07/2023 6:38 PM EST 07/07/23 175 Time In/Out Time In 3 Time Out 2 Total Visit Time 29 minutes PT Therapy [...] RADIOFREQUENCY PULSED 09/2018 for a-fib with [facility] APPENDECTOMY BREAST LUMPECTOMY FOOT SURGERY HEART CATHETERIZATION no stents NV ENDOMETRIAL CRYOABLATION REMOVAL BILIARY DUCT/GALLBLADDER CALCULI/DEBRIS PERCUTANEOUS [...] Supine to Sit, Rehab Eval Level of Loving: Supine/Sit stand-by assist Physical Assist/Nonphysical Assist: Supine/Sit 1 person assist Transfer Skill: Sit To Stand, Rehab Eval Loving (Sit-Stand Transfers) contact guard Physical Assist/Nonphysical Assist: Sit/Stand 1 person assist Weight-Bearing Restrictions: Sit/Stand toe touch weight-bearing Assistive Device For Transfer: Sit/Stand 2 wheeled walker Gait Skills, PT Eval Level of Loving: Gait contact guard Physical Assist/Nonphysical Assist: Gait [...] educated on hip precautions, use of leg director of web marketing and weight bearing status. Pteducated to only [...] DISCUSSED WITH DR OHARA. documented in this [facility]03-06-2024 Hospital course Narrative* Chance Mahoney MD [...] x 1 month, then 2x/week for maintainence, [facility]/pharmacy #[id number], 165, cm, 02/11/23 10:41:00 EDT, [...] Department Dept Phone 07/23/2023 2:30 PM [facility] [phone] documented in this encounterMercy Health [facility]03-06-2024 Surgery Postoperative evaluation and management note* Op Note - Miko Ohara MD - 2023 5:54 AM EST DATE OF PROCEDURE: July 07, 2023 ATTENDING PHYSICIAN: Miko Ohara M.D. 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 PROCEDURE PERFORMED: Unlisted procedure of right hip and pelvis, dual-row suture anchor repair of 100% massive abductor tear of right hip, work equivalent similar to CPT 32217 Periarticular injection of right hip. ANESTHESIA: General. [...] it as a CPT similar to that, 36202. ATTENDING/ASSISTING PARTICIPATION: This operation could not have been safely performed (without compromising the technical results or length of the procedure) without the assistance of a skilled ophthalmic surgical assistant. A ophthalmic surgical assistant was medically necessary for positioning, retraction and instrume ntation. [facility]03-06-2024 Nurse Note* Nursing Notes - Aidee Field RN - 2023 4:10 AM EST Assessment remains unchanged from previous. Neuro checks WN, abductor pillow in place. Call light within reach. [facility]03-06-2024 Nurse Note* Nursing Notes - Aidee Field RN - 2023 12:05 AM EST Assessment remains unchanged from previous. Neuro checks WNL, abductor pillow in place. Denies futher needs, call light within reach. [facility]03-05-2024 Consult note* Chance Mahoney MD - 07/07/2023 [...] RADIOFREQUENCY PULSED 09/2018 for a-fib with [facility] APPENDECTOMY BREAST LUMPECTOMY FOOT SURGERY HEART CATHETERIZATION no stents NV ENDOMETRIAL CRYOABLATION REMOVAL BILIARY DUCT/GALLBLADDER CALCULI/DEBRIS PERCUTANEOUS [...] metabolic panel in the morning GI prophylaxis. [facility]03-05-2024 Consult note* Chance Mahoney MD - 07/07/2023 [...] RADIOFREQUENCY PULSED 09/2018 for a-fib with [facility] APPENDECTOMY BREAST LUMPECTOMY FOOT SURGERY HEART CATHETERIZATION no stents NV ENDOMETRIAL CRYOABLATION REMOVAL BILIARY DUCT/GALLBLADDER CALCULI/DEBRIS PERCUTANEOUS [...] the morning GI prophylaxis. documented in this encounterAvita Health [id number] Nurse Note* Nursing Notes - Marcella Lozano RN - 07/07/2023 4:10 PM EST Arrived to room [facility] from PACU. Bedside report received from RICARDO Jacobo. Oriented to room and provided call light. Admission assessment, head to toe and post op vitals initiated. Fresh ice water and crackers provided. Family members accompanying patient, denies additional needs, call light in reach. FAITH intact flashing green. [facility]03-05-[facility] Nurse Note* Sara Garcia RN - 07/07/2023 4:00 PM EST Patient transferred to [facility] via cart in stable [...] Fire score of: 2 documented in this [facility]03-05-2024 Nurse Surgical operation note* Sara Garcia RN - 07/07/2023 4:00 PM EST Patient transferred to [facility] via cart in stable condition. Report given to RICARDO Kim. Cart left in locked and lowest position with side rails up x2. Snack and call light given to patient. Monitorsand alarms on and attached to patient. Health03-05-2024 Nurse Surgical operation note* Edison Perez RN - 07/07/2023 3:30 PM EST Patient transported to PACU with Damián TILLEY. Reports given to Sara SILVA at 1530H. Health03-05-2024 Surgery Postoperative evaluation and management note* Brief Op Note - MEDINA Richardson - 07/07/2023 3:28 PM EST POST OPERATIVE/PROCEDURE NOTE Bettie Burns 77 y.o. female [id number] SURGEON Surgeons and Role: * Miko Ohara MD - Primary HEEL SPRAYER FIRST MEDINA Richardson ANESTHESIOLOGIST MOBILE QA TESTER: Chance Ngo CRNA; PALAK Barrett SURGICAL STAFF Flux Core Welder: Kisha Karimi RN; Whit Govea, RICARDO Nurse Practitioner: MEDINA Richardson Scrub Person: Chi Goldberg, RIACRDO; Naomi Maier, RICARDO; Daryl Duran; Hao Rose [...] Implant Name Type Inv. Item Serial No. Manager Parking Lot No. LRB No. Used Action ANCHORS, 5.5 NON PUNCHING - [id number] ANCHORS, 5.5 NON PUNCHING HIST ARTHREX [id number] Right 1 Implanted ANCHORS, 5.5 NON PUNCHING - [id number] ANCHORS, 5.5 NON PUNCHING HIST ARTHREX [id number] Right 3 Implanted SPECIMENS ID Type Source [...] Miko Ohara MD 07/07/2023 1434 Paula Barrera APRN-GENERAL SALES MANAGER July 07, 2023 3:28 PM [facility]03-05-2024 Nurse Surgical operation note* Whit Govea RN - 07/07/2023 2:04 PM EST OR 3 room temp: 65.1F Humidity: 44% Fire score of: 2 [employer] [id number] Nurse Note* Nursing Notes - Chelsea Bledsoe RN - 07/07/2023 10:52 AM EST Unable to doppler right dorsalis pedis pulse. [facility]02-16-2024 Miscellaneous Notes* Telephone Encounter - Jacqueline Sparrow [...] and Celebrex question. * Telephone Encounter - Mundo Diaz MD - 06/19/2023 12:01 PM EST Okay to proceed with surgery at moderate risk Can use Celebrex Hold Eliquis for 2 days resume after surgery * Telephone Encounter - Jacqueline Sparrow RN - 06/19/2023 12:01 PM EST Clearance note faxed back to Dr Ohara office. [facility] Telephone encounter Note* Telephone Encounter - [...] on risk, holding Eliquis and Celebrex question. [facility]02-16-2024 Telephone encounter Note* Telephone Encounter - Mundo Diaz MD - 06/19/2023 12:01 PM EST Okay to proceed with surgery at moderate risk Can use Celebrex Hold Eliquis for 2 days resume after surgery [facility] Work Phone: [phone] Telephone encounter Note* Telephone Encounter - Jacqueline Sparrow RN - 06/19/2023 12:01 PM EST Clearance note faxed back to Dr Ohara office. [facility]02-15-2024 History of Present illness Narrative* Eva Landryclair [...] year ago with Dr. Denver Hughes in [place]. Pt states she is looking for a second opinion due to having issues from this past surgery. Date: 06/18/2023 2:32 PM Patient: Bettie Burns MR#: [id number] : 1945 Age: 77 y.o. Referring Physician: [...] APPENDECTOMY BREAST LUMPECTOMY FOOT SURGERY HEART CATHETERIZATION NV ENDOMETRIAL CRYOABLATION REMOVAL BILIARY DUCT/GALLBLADDER CALCULI/DEBRIS PERCUTANEOUS [...] tendons as discussed in detail above. 3. Gkwsm-in-doxlvhtt amount of fluid along the lateral aspect [...] scheduling an appointment for [facility] [place] and the potential surgical date, and reviewing [...] APPENDECTOMY BREAST LUMPECTOMY FOOT SURGERY HEART CATHETERIZATION NV ENDOMETRIAL CRYOABLATION REMOVAL BILIARY DUCT/GALLBLADDER CALCULI/DEBRIS PERCUTANEOUS W/ IMAGE REMOVAL CATARACT (PEM) ROTATOR CUFF REPAIR History reviewed. No pertinent family history. Social History Socioeconomic History Marital status: Tobacco Use Smoking status: Never Smokeless tobacco: Never Social Determinants of Health Food Insecurity: No Food Insecurity (06/02/2023) Received from [facility] Hunger Screening Within the past 12 months [...] Morphine Oxycodone Penicillins Tramadol documented in this [facility]01-30-2024 History of Present illness Narrative* Mundo Diaz MD - 06/02/2023 2:30 PM EST Bettie Carroll Carlosbobbi Date of visit: 06/02/2023 [...] 12/2016 ATRIAL FIBRILLATION Arthritis Breast cancer ([facility]) 11/14/2015 LEFT COVID-19 03/2020 History of bleeding [...] by Amber Quiñonez MD at [facility] () ARTHROSCOPY REPAIR ROTATOR CUFF SHOULDER Right 05/16/2020 Performed by Melchor Rivera DO at [facility] ARTHROSCOPY SHOULDER Right 05/16/2020 Performed by Melchor Rivera DO at [facility] BREAST BIOPSY Left 2015 BREAST LUMPECTOMY Left 11/14/2015 WITH RADIATION BREAST SURGERY Left 2012 lumpectomy CATARACT EXTRACTION CHOLECYSTECTOMY COLONOSCOPY Coronary angiogram and left ventricular gram/pressure N/A 08/08/2021 Performed by Bertram Lal MD at [facility] CARDIAC CATH LABS EYE SURGERY lids [...] STARKS MD Referring Physician: Elliot Starks MD [facility] [place] [address] documented in this encounterDiley Ridge Medical CenterFastSoft [facility] [id number] History of Present illness Narrative* Divine Boudreaux - 05/14/2023 9:30 AM EST Ortho Nurse - Patient Intake Room#: 1 --- 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 Referring Physician: Self, Self Insurance: Payor: MEDICARE [employer] HMO OR PPO / Plan: MEDICARE [employer] PPO / Product Type: *No Product type* [...] [x]cane, []bracing Are you followed by a butcher assistant? [x] [] Name: Dr. Waleska Lowe Are you followed by pain management? [x] [] Name: Dr. Cedeno - [facility] Are you followed by any other specialists? [x] [] Name: Oncolgist - Dr. Choi [facility] Urologist - Dr. Christian Bourne [...] abductor muscles as well as ESR/CRP and [facility] and [facility] labs today. I will see [...] APPENDECTOMY BREAST LUMPECTOMY FOOT SURGERY HEART CATHETERIZATION NV ENDOMETRIAL CRYOABLATION REMOVAL BILIARY DUCT/GALLBLADDER CALCULI/DEBRIS PERCUTANEOUS [...] Morphine Oxycodone Penicillins Tramadol [facility] Evaluation note* Encounter Date Diagnosis Assessment [...] verbalizes understanding and agrees with tx plan. [employer] [employer] Other [id number] Hospital Discharge instructions Patient Education 02/11/2023 11:16:08 [...] provider. Document Revised: 08/29/2021 Document Reviewed: 08/29/2021 [employer] Patient Education 2022 [employer]. Follow Up Care 11/06/2022 15:31:52 With:Paul VILLEGAS, Alfreda Palacios, URBranden, URO Address: When:Within 3 Month(s) [facility] [email or web address] 07-17-2023 Evaluation note* Encounter Date Diagnosis Assessment Notes Treatment Notes Treatment Clinical Notes Nov, Dysuria (ICD-10 - R30.0) [employer] Other 06-29-2023 Evaluation note* Encounter Date Diagnosis Assessment Notes Treatment Notes Treatment Clinical Notes Oct, Frequent UTI (ICD-10 - N39.0) Pt requests Urology referral. Discussed also getting CT to move along process. Oct, Dyshidrotic eczema (ICD-10 - L30.1) Will treat with steroid cream prn [employer] Other 06-26-2023 Evaluation note* Encounter Date Diagnosis Assessment Notes Treatment Notes Treatment Clinical Notes Oct, Dysuria (ICD-10 - R30.0) [employer] Other 05-11-2023 Miscellaneous Notes* Telephone Encounter - Matt Adams RN - 09/11/2022 11:43 AM EDT Order faxed to [facility] and pt is aware. Matt Adams RN * Telephone Encounter - Matt Adams RN - 09/11/2022 9:51 AM EDT Pt called to request yearly Mammogram order I have pended order as previously completed Pt requests to fax to Nori Lema [phone] BRM/HM: please review and sign if agreeable Matt Adams RN [facility] Evaluation note* Encounter Date Diagnosis Assessment Notes Treatment Notes Treatment Clinical Notes Aug, Dysuria (ICD-10 - R30.0) [employer] Other 03-16-2023 Evaluation note* Encounter Date Diagnosis [...] N32.81) chronic and improved on present med [employer] Other 02-20-2023 Evaluation note* Encounter Date Diagnosis Assessment Notes Treatment Notes Treatment Clinical Notes Jun, Dysuria (ICD-10 - R30.0) [employer] Other 02-03-2023 Evaluation note* Encounter Date Diagnosis Assessment Notes Treatment Notes Treatment Clinical Notes Jun, OAB (overactive bladder) (ICD-10 - N32.81) [employer] Other 02-01-2023 Evaluation note* Encounter Date Diagnosis Assessment Notes Treatment Notes Treatment Clinical Notes Jun, OAB (overactive bladder) (ICD-10 - N32.81) Patient request to try new medication reviewed side effect profile. Patient declines urology or ELECTRONIC EQUIPMENT SET UP OPERATOR referral at this time. Jun, Essential hypertension (ICD-10 - I10) reviewed and updated medications she will follow-up with cardiology in Jun, Hypokalemia (ICD-10 - E87.6) Reviewed and updated medications. Discussed foods that are high in potassium Jun, Right lumbar pain (ICD-10 - M54.50) Follow-up with Dr. Rivera as scheduled in June. She does have limping with her gait. [employer] Other 05-26-2022 Miscellaneous Notes* Telephone Encounter - Andrew Choi MD - 09/26/2021 5:13 PM EDT Okay to change to screening mammogram. Order signed. ASIYA Ford * Telephone Encounter - Mikaela Thompson RN - 09/26/2021 2:33 PM EDT Pt scheduled for diagnostic mamm tomorrow @ [facility]. Hospital calls to ask if this could be changed to a screening mammogram since the pt is greater than 2 years from diagnosis? Mikaela Thompson RN documented in this encounterPro[facility]al[facility] + Plan note Future Appointments Appointment Date:05/27/2023 08:45:00 AM Scheduled Provider:Alfreda Miller MD Location:[facility] Appointment Type:URO Office Visit [facility] evaluation + Plan note Future Appointments Appointment Date:07/22/2024 10:30:00 AM Scheduled Provider: Location:[facility] Appointment Type:Urology CALL PAT FT Appointment Date:07/25/2024 08:15:00 AM Scheduled Provider: Location:[facility] Appointment Type:Urology FT [facility] evaluation + Plan note Future Appointments Appointment Date:07/22/2024 10:30:00 AM Scheduled Provider: Location:[facility] Appointment Type:Urology CALL PAT FT Appointment Date:07/25/2024 08:15:00 AM Scheduled Provider: Location:[facility] Appointment Type:Urology FT Diagnostic Tests Pending * Urine Culture 06/22/24 [facility] evaluation + Plan note Future Appointments Appointment Date:09/16/2024 11:30:00 AM Scheduled Provider: Location:[facility] Appointment Type:Urology CALL PAT FT Appointment Date:09/19/2024 08:00:00 AM Scheduled Provider: Location:[facility] Appointment Type:Urology FT [facility] evaluation + Plan note Future Appointments Appointment Date:01/25/2025 08:00:00 AM Scheduled Provider:Maria E Osman PA-C Location:[facility] Appointment Type:URO Office Visit [facility] evaluation note* Diagnosis Encounter for screening mammogram for malignant neoplasm of breast- Primary Other screening mammogram documented in this encounter [facility] note* Diagnosis Malignant neoplasm of upper-outer quadrant of left breast in female, estrogen receptor positive (HCC)- Primary documented in this encounter [facility] noteNo InformationNort [employer] Other Evaluation note* Diagnosis Encounter for screening mammogram for malignant neoplasm of breast- Primary Other screening mammogram documented in this encounter [facility]Evaluchristianacare noteNo assessment information availableC[facility] Clinic [facility] Work Phone: Evaluation note* Diagnosis Pain in prosthetic joint, initial encounter- Primary Primary osteoarthritis of right hip Primary localized osteoarthrosis, pelvic region and thigh documented in this encounter [facility] SystemEvaluation note* Diagnosis Right hip pain- Primary Pain in joint, pelvic region and thigh Pre-op testing- Primary Preoperative examination, unspecified Essential (primary) hypertension Unspecified essential hypertension Abnormal finding of blood chemistry, unspecified Abnormal coagulation profile Tear of rotator cuff of right hip, initial encounter 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, initial encounter documented in this encounter [facility] SystemEvaluation note* Diagnosis Status post revision of total hip- Primary Hip joint replacement by other means Pre-op testing Preoperative examination, unspecified Tear of rotator cuff of right hip, initial encounter 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, initial encounter Acute postoperative pain of right hip documented in this encounter [facility] note* Diagnosis Tear of gluteus minimus tendon, right, initial encounter- Primary documented in this encounter [facility] note* Diagnosis Right hip pain- Primary Pain in joint, pelvic region and thigh documented in this encounter [facility] System[facility] note* Diagnosis Onset Date Resolution Status Dysuria noneactive [facility] Work Phone: Evaluation note* Diagnosis Hx of total hip arthroplasty, right- Primary documented in this encounter [facility] System[facility] note* Diagnosis Paroxysmal atrial fibrillation (CMS-HCC)- Primary Atrial fibrillation Primary hypertension Unspecified essential hypertension Chronic coronary artery disease Coronary atherosclerosis of unspecified type of vessel, oneida or graft documented in [facility]* Diagnosis Paroxysmal atrial fibrillation (CMS-HCC)- Primary Atrial fibrillation Unstable angina (CMS-HCC) Intermediate coronary syndrome SOB (shortness of breath) Shortness of breath documented in this [facility]* Diagnosis Hx of total hip arthroplasty, right- Primary documented in this encounter [facility] SystemEvaluation note* Diagnosis Paroxysmal atrial fibrillation (CMS-HCC) Atrial fibrillation documented in this encounter [facility] SystemEvaluation note* Diagnosis Paroxysmal atrial fibrillation (CMS-HCC) Atrial fibrillation [facility]* Diagnosis Primary hypertension- Primary Unspecified essential hypertension 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 (CMS-HCC) documented in this encounter [facility]* Diagnosis Paroxysmal atrial fibrillation (CMS-HCC)- Primary Atrial fibrillation Benign hypertension Essential hypertension, benign documented in this encounter [facility]* Diagnosis Paroxysmal atrial fibrillation (CMS-HCC)- Primary Atrial fibrillation Primary hypertension Unspecified essential hypertension Palpitations documented in this encounter [facility]* Diagnosis Paroxysmal atrial fibrillation (CMS-HCC) Atrial fibrillation [facility]* Diagnosis Onset Date Resolution Status Admit Date Dysuria acute November 29 8:53am [facility] Work Phone: History general Narrative - [...] replacement 12/16/2021 Hospitalization History SEE SURGICAL HX [employer] Other Hospital course Narrative No data available for this section [facility] Hospital Discharge instructions* Attachments The following attachments cannot be sent through Care Everywhere. * [facility] AMB SMOKING CESSATION LINKS documented in this encounterMercy Health [facility] HospitalHospital Discharge instructions No data available for this section [facility] InstructionsNot on filedocumented in this encounter [facility] HospitalInstructionsNot on filedocumented in this encounter [facility] [...] available for this section [facility] [employer] reason for referral (narrative)* Diagnostic Procedure Only (Routine) - Pending Review Specialty Diagnoses / Procedures Referred By Juan wren Referred To Contact [facility] Diagnoses Encounter for screening mammogram for malignant neoplasm of breast Procedures SHANE SCREENING W YAW SCREENING DIGITAL BREAST TOMOSYNTHESIS BI SCREENING MAMMOGRAPHY BI 2-VIEW BREAST INC Andrew Miguel MD [facility] [place] [address] [place] [address] Referral ID Status Reason Start Date Expiration Date Visits Requested Visits Authorized [id number] Pending Review Auto-Generat ed Referral 09/26/2021 10/26/2022 1 1 [facility] for referral (narrative)* Diagnostic Procedure Only (Routine) - Pending Review Specialty Diagnoses / Procedures Referred By Juan wren Referred To Contact [facility] Diagnoses Encounter for screening mammogram for malignant neoplasm of breast Procedures SHANE SCREENING W YAW SCREENING DIGITAL BREAST TOMOSYNTHESIS BI SCREENING MAMMOGRAPHY BI 2-VIEW BREAST INC Andrew Miguel MD [facility] [place] [address] [address] [address] Referral ID Status Reason Start Date Expiration Date Visits Requested Visits Authorized [id number] Pending Review Auto-Generat ed Referral 09/11/2022 10/11/2023 1 1 [facility] for referral (narrative)* (Routine) Specialty Diagnoses / Procedures Referred By Contac t Referred To Contact [facility] [address] [place] [address] Referral ID Status Reason Start Date Expiration Date Visits Re quested Visits Authorized [facility] for referral (narrative)* Consultation (Routine) - Patient to Arrange Specialty Diagnoses / Procedures Referred By Contac t Referred To Contact Physical Therapy Diagnoses Right hip pain Divine Dougherty [address] [place] [address] Referral ID Status Reason Start Date Expiration Date V isits Requested Visits Authorized [id number] Patient to Arrange 08/20/2023 09/13/2024 1 1 Scheduling Instructions . * Diagnostic X-Ray (Routine) - New Request Specialty Diagnoses / Procedures Referred By Contac t Referred To Contact Diagnoses Right hip pain Procedures XR HIP WITH PELVIS RIGHT HuntermichaelJhoanaa Deric [address] [place] [address] Referral ID Status Reason Start Date Expiration Date V isits Requested Visits Authorized [id number] New Request 08/20/2023 09/13/2024 1 1 [facility] for referral (narrative)* Diagnostic Procedure Only (Routine) - Pending Review Specialty Diagnoses / Procedures Referred By Contac t Referred To Contact [facility] Diagnoses Encounter for screening mammogram for malignant neoplasm of breast Procedures SHANE SCREENING W YAW SCREENING DIGITAL BREAST TOMOSYNTHESIS BI SCREENING MAMMOGRAPHY BI 2-VIEW BREAST INC Andrew Miguel MD [address] [place] [address] [place] [address] [facility] [address] [facility] [address] Referral ID Status Reason Start Date Expiration Date Visits Requested Visits Authorized [id number] Pending Review Auto-Generat ed Referral 09/17/2023 10/16/2024 1 1 [facility] for referral (narrative)No reason for referral information availableWooster Community Hospital Work Phone: Reason for visit Narrative* Diagnostic X-Ray (Routine) - New Request Specialty Diagnoses / Procedures Referred By Juan t Referred To Contact Diagnoses Hx of total hip arthroplasty, right Procedures XR HIP WITH PELVIS RIGHT AmariPaula, SNAPPER ON-GENERAL SALES MANAGER [address] [facility] [place] [address] Phone: tel: fax: Referral ID Status Reason Start Date Expiration Date V isits Requested Visits Authorized [id number] New Request 07/12/2024 08/06/2025 1 1 [employer] Varthana [facility] Summary Purpose Family History Relationship Condition Age at Onset Recorded Date/T nilam father Unknown mother Unknown Advance Directives Documents on File Type Date Recorded Patient Sales Development Consultant Expl anation Advance Directives/Living Will 06/25/2023 9:17 AM DURABLE POWER OF SCALE BALANCER FOR HEALTHCARE 06/25/23 Advance Directives/Living Will 06/25/2023 [...] Documents on File Type Date Recorded Patient Sales Development Consultant Expl anation Living Will 05/21/2020 9:37 AM Durable Power of Patients Transporter 05/21/2020 9:27 AM Durable Power of Patients Transporter 05/16/2020 6:05 AM Living Will 05/16/2020 6:04 AM Healthcare Agents on File Name Relationship Healthcare Agent Relationshi p Communication David Frailey Spouse Health Care Agent Samantha Inman Daughter First [facility] Health Ca re Agent Healthcare Agents on [...] WITH PELVIS RIGHT Miko Ohara MD [address] [place] [address] Referral ID Status Reason Start Date Expiration Date V isits Requested Visits Authorized [id number] New Request 11/16/2023 12/10/2024 1 1 Specialty Diagnoses / Procedures Referred By Contac t Referred To Contact Diagnoses Tear of gluteus minimus tendon, right, initial encounter Procedures XR HIP WITH PELVIS RIGHT Ela Divine M [address] [place], [place] [id number] Referral ID Status Reason Start Date Expiration Date V isits Requested Visits Authorized [id number] New Request 07/20/2023 08/13/2024 1 1 Specialty Diagnoses / Procedures Referred By Contac t Referred To Contact Diagnoses Pain in prosthetic joint, initial encounter Procedures MRI HIP RIGHT WITHOUT CONTRAST NV MRI LOWER EXTREM JT, W/O CONTRAST Miko Ohara MD [address] [place], [place] [id number] Referral ID Status Reason Start Date Expiration Date V isits Requested Visits Authorized [id number] New Request 05/14/2023 06/07/2024 1 1 Specialty Diagnoses / Procedures Referred By Contac t Referred To Contact Diagnoses Pain in prosthetic joint, initial encounter Procedures COBALT AND CHROMIUM,WB Miko Ohara MD [address] [place] [address] Referral ID Status Reason Start Date Expiration Date V isits Requested Visits Authorized [id number] New Request 05/14/2023 06/07/2024 1 1 Specialty Diagnoses / Procedures Referred By Contac t Referred To Contact Diagnoses Primary osteoarthritis of right hip Procedures XR HIP WITH PELVIS RIGHT Miko Ohara MD [address] [place] [address] Referral ID Status Reason Start Date Expiration Date V isits Requested Visits Authorized [id number] New Request 05/06/2023 05/30/2024 1 1 Reason *FU 11/12 Jason office Diagnosis 1 Frequent UTI (N39.0) Referral Organization [facility] Regino turcios Referring Provider First Name Elliot Referring Provider Last Name Raudel Referring Provider Specialty Family [facility] Referred Organization [facility] Referred Provider ALFREDA MILLER Referred Address [address] [place], [place] Referred Provider Specialty Urology Referral Priority Routine General Notes Vitcoria Lisa 11:03:05 AM >received today, notes attached, [...] acute, to stress May 09, 2024 9:07am Chief Complaint Admit Date UA, burning, itching, pressure, frequenc y November 29, 2024 8:53am Reason for Visit Admit Date Dysuria November 29, 2024 8:53 am Additional Source Comments INFORMATION SOURCE (unrecogn ized section and content) DATE CREATED AUTHOR 10/28/2017 [facility] DATE CREATED AUTHOR AUTHOR'S ORGANIZ ATION 03/21/2020 [facility] DATE CREATED AUTHOR AUTHOR'S ORGANIZ ATION 09/13/2021 [facility] dical Specialist DATE CREATED AUTHOR AUTHOR'S ORGANIZ ATION 06/11/2022 [facility] DATE CREATED AUTHOR AUTHOR'S ORGANIZ ATION 11/18/2022 [facility] DATE CREATED AUTHOR AUTHOR'S ORGANIZ ATION 05/20/2023 [facility] DATE CREATED AUTHOR AUTHOR'S ORGANIZ ATION 09/19/2023 [facility] DATE CREATED AUTHOR AUTHOR'S ORGANIZ ATION 06/24/2024 [facility] DATE CREATED AUTHOR AUTHOR'S ORGANIZ ATION 06/26/2024 [facility] DATE CREATED AUTHOR AUTHOR'S ORGANIZ ATION 07/17/2024 [facility] DATE CREATED AUTHOR AUTHOR'S ORGANIZ ATION 09/13/2024 [facility] DATE CREATED AUTHOR AUTHOR'S ORGANIZ ATION 09/18/2024 [facility] DATE CREATED AUTHOR AUTHOR'S ORGANIZ ATION 10/28/2024 [facility] DATE CREATED AUTHOR AUTHOR'S ORGANIZ ATION 11/12/2024 [facility] DATE CREATED AUTHOR AUTHOR'S ORGANIZ ATION 11/18/2024 [facility] Source Comments (unrecognize d section [...] HIP WITH PELVIS RIGHT Miko Ohara MD [address] [place] [address] Referral ID Status Reason Start Date Expiration Date V isits Requested Visits Authorized [id number] New Request 05/06/2023 05/30/2024 1 1 Reason [...] right hip prosthesis, initial encounter [T84.090A] Procedures NV PELVIS/HIP JOINT SURGERY UNLISTED NV REVISE TOTAL HIP REPLACEMENT GLUTEUS MEDIUS TENDON REPAIR REVISION ARTHROPLASTY HIP BOTH ACETABULAR & FEMORAL COMPONENTS Miko Ohara MD [address] [place] [address] Referral ID Status Reason Start Date Expiration Date Visits Re quested Visits Authorized [id number] 06/19/2023 1 1 Reason Comments Post Op Visit Specialty Diagnoses / Procedures Referred By Contac t Referred To Contact Diagnoses Tear of gluteus minimus tendon, right, initial encounter Procedures XR HIP WITH PELVIS RIGHT Divine Dougherty [address] [place] [address] Referral ID Status Reason Start Date Expiration Date V isits Requested Visits Authorized [id number] New Request 07/20/2023 08/13/2024 1 1 Reason Comments Follow-up Specialty Diagnoses / Procedures Referred By Contac t Referred To Contact Diagnoses Right hip pain Procedures XR HIP WITH PELVIS RIGHT Divine Dougherty [address] [place] [address] Referral ID Status Reason Start Date Expiration Date V isits Requested Visits Authorized [id number] New Request 08/20/2023 09/13/2024 1 1 Reason Comments Yearly Exam With Mammogram Reason Comments Pain Specialty Diagnoses / Procedures Referred By Contac t Referred To Contact Diagnoses Hx of total hip arthroplasty, right Procedures XR HIP WITH PELVIS RIGHT Miko Ohara MD [address] [place] [address] Referral ID Status Reason Start Date Expiration Date V isits Requested Visits Authorized [id number] New Request 11/16/2023 12/10/2024 1 1 Reason Comments Follow-up est pt concerns of a fib per smart watch wants seen sooner. sched w/pt pt will arrive at 11:30 Reason Onset Date Comments Med Refill 10/19/2023 Reason Onset Date Comments Pre op clearance 06/19/2023 Reason Comments Follow-up Hypertension Leg Swelling Reason Comments Med Refill Reason Comments Follow-up Reason Onset Date Comments Med Refill 07/27/2024 Reason Comments Follow-up OV F/U 1 YR NO TESTS L/S FRS, SCHED W/PT Care Teams (unrecognized sec tion and content) Nurse Head Relationship Specialty Start Date End Date Elliot Starks MD [address] [place] [address] PCP - General Family Practice 11/26/15 Nurse Head Relationship Specialty Start Date End Date Elliot Starks MD [address] [place] [phone] PCP - General Family Practice 11/26/15 Nurse Head Relationship Specialty Start Date End Date Elliot Starks MD [address] [place] [phone] PCP - General Family Medicine 11/26/15 Team Status: Inactive Member Role Status Dates Elliot Starks MD Attending Provider Active Nurse Head Relationship Specialty Start Date End Date Elliot Starks MD [address] [place] [address] [place] [address] PCP - General Family Medicine 05/11/23 Nurse Head Relationship Specialty Start Date End Date Elliot Starks MD [address] [place] [address] [place] [address] PCP - General Family Medicine 05/11/23 Nurse Head Relationship Specialty Start Date End Date Elliot Starks MD [address] [place] [address] [place] [address] PCP - General Family Medicine 05/11/23 Nurse Head Relationship Specialty Start Date End Date Elliot Starks MD [address] [place] [address] [place] [address] PCP - General Family Medicine 05/11/23 Nurse Head Relationship Specialty Start Date End Date Elliot Starks MD [address] [place] [address] [place] [address] PCP - General Family Medicine 05/11/23 Nurse Head Relationship Specialty Start Date End Date Elliot Starks MD [address] [place], [place] [phone] PCP - General Family Medicine 05/11/23 Nurse Head Relationship Specialty Start Date End Date Elliot Starks MD [address] [place] [address] PCP - General Family Medicine 05/11/23 Nurse Head Relationship Specialty Start Date End Date Elliot Starks MD [address] [place] [address] PCP - General Family Medicine 05/11/23 Nurse Head Relationship Specialty Start Date End Date Elliot Starks MD [address] [place] [phone] PCP - General Family Medicine 11/26/15 Team [...] May 09, 2024 End: May 09, 2024 Nurse Head Relationship Specialty Start Date End Date Elliot Starks MD [address] [place] [address] PCP - General 03/17/17 Nurse Head Relationship Specialty Start Date End Date Elliot Starks MD [address] [place] [address] PCP - General 07/15/23 Nurse Head Relationship Specialty Start Date End Date Elliot Starks MD [facility] [place] [address] PCP - General 03/17/17 Nurse Head Relationship Specialty Start Date End Date Elliot Starks MD [address] [place] [address] PCP - General 03/17/17 Nurse Head Relationship Specialty Start Date End Date Elliot Starks MD [address] [place] [address] PCP - General 07/15/23 Nurse Head Relationship Specialty Start Date End Date Elliot Starks MD [address] [place] [address] PCP - General 07/15/23 Nurse Head Relationship Specialty Start Date End Date Elliot Starks MD [address] [place] [address] PCP - General 07/15/23 Team Status: Active Member Role Status Dates Elliot Starks MD Primary Care Provide cristian, Attending Provider Active Start: May 11, 2024 Team Status: Inactive Member Role Status Dates Elliot Starks MD Primary Care Provider Active Start: June 21, 2024 End: June 21, 2024 Chinedu Farley DO Attending Provider Active Sta rt: June 21, 2024 End: June 21, 2024 Nurse Head Relationship Specialty [place] [address] [place] [address], [place] [address] PCP - General Family Medicine 05/11/23 Nurse Head Relationship Specialty Start Date End Date Elliot Starks MD [address] [place] [address] PCP - General Family Medicine 05/11/23 Nurse Head Relationship Specialty Start Date End Date Elliot Starks MD [address] [place] [address] PCP - General 07/15/23 Nurse Head Relationship Specialty Start Date End Date Elliot Starks MD [address] [place] [address] PCP - General 07/15/23 Nurse Head Relationship Specialty Start Date End Date Elliot Starks MD [address] [place] [address] PCP - General 07/15/23 Nurse Head Relationship Specialty Start Date End Date Elliot Starks MD [address] [place] [address] PCP - General 07/15/23 Team Status: Inactive Member Role Status Dates Elliot Starks MD Primary Care Provider Active Start: November 29, 2024 End: November 29, 2024 Elliot Starks MD Attending Provider Active St art: November 29, 2024 End: November 29, 2024 Goals (unrecognized section and content) Goals [...] RN)[id number] ($$New Bag$$ - Provider: Damián Saenz APRN-[employer]BILE QA TESTER)1647 (Stopped - Provider: Aidee Field RN) Sodium [...] 2 g, Intravenous, Administer over 15 Minutes, SPLIT LEATHER DEPARTMENT SUPERVISOR TO PROCEDURE, 1 dose, Starting on Thu07/07/23 at 1003, Until Thu07/07/23 at 1409, Other, Pre-operative antibiotic, Pre-op/Pre-Proc 1354 (Given - Provider: Melchor Holcomb APRN-[facility]) HYDROmorphone (DILAUDID) injection 0.5 mg 0.5 [...] BE BASED ON THE PRIMARY CLINICAL RECORDS. [email or web address] provides no warranty or guarantee of the accuracy or completeness of information in this document.
[2024-12-05 07:15] VITALS: BP 114/64; PULSE 58; TEMP 36.6
[2024-12-05 07:57] VITALS: BP 158/87; PULSE 57; O2SAT 97
[2024-12-05 07:58] VITALS: BP 167/64; PULSE 56; O2SAT 99
[2024-12-05] MEDS: LIDOCAINE HCL 2% 400 MG/20 ML MDV 12 ML INJ (07:59)
[2024-12-05] MEDS: BUPIVACAINE HCL 0.25% PF 25 MG/10 ML VIAL 2 ML INJ (08:06)
[2024-12-05] MEDS: METHYLPREDNISOLONE ACETATE 40 MG/ML VIAL INJ (08:06)
--- NOTE | 2024-12-05 08:07 | P.ON_ITS ---
Date of procedure: 12/05/24 Pre-op diagnosis: Pain due to lumbar spondylosis without myelopathy Post-op diagnosis: same as pre-op Procedure: Procedure: Right L4-5, L5-S1 radiofrequency ablation Medications: Bupivacaine 0.25% 2cc, depomedrol 40mg, lidocaine 2% 5cc The patient was seen and examined in the preoperative holding area.? The site was marked.? Written informed consent was obtained and placed on the chart.? The patient was brought to the medical procedure unit and placed in the prone position.? A timeout was completed verifying correct patient, procedure, positioning, and special requirements.? The skin overlying the target points, the designated medial branch, was prepped and draped in the usual sterile fashion.? The target point was achieved with a 20-gauge 15 cm with a 10 mm curved active tip radiofrequency cannula under direct fluoroscopic visualization.? The needle was inserted at level L4 on the right side. Needle tip position was confirmed with lateral fluoroscopic position.? Motor stimulation was carried out at 2 Hz up to 5 volts with the absence of extremity activity.? This was repeated at level L5, S1 on right side.?? Sensory stimulation was carried out.? Concordant pain was realized at the above- mentioned sites.? Then radiofrequency lesioning was carried out times 90 seconds at 80 degrees times 2 lesions at each level.? The radiofrequency probe was removed prior to cannula removal.? The above-mentioned injectate was placed in 1 mL increments.? The needle was removed.? Insertion sites were covered.? The patient was taken to the postoperative recovery area and monitored for an appropriate length of time before being found suitable for discharge in the company of a responsible adult. Anesthesia: Local Surgeon: Daisy Liz Pathology: none sent Condition: stable Disposition: no change
== END 2024-12-05 08:13 | disposition home or self-care (01) ==
LOC: SURGOUT 06:55
PROVIDERS: PCP Family Medicine; Visit Provider Anesthesiology
DX: M47.816 Spondylosis without myelopathy or radiculopathy, lumbar region (principal); M54.50 Low back pain, unspecified
CPT/HCPCS: 64635; 64636; J0665; J1010

== ENCOUNTER 2024-12-29 11:09 | Outpatient (OUT) | payer MEDICARE, SELFPAY ==
--- OUTSIDE RECORDS SUMMARY | 2024-12-27 10:00 | XMS_ITS | Encounter Summary ---
Author Organization [facility] Address [address] [place] [address] Care Team Providers Care Drum Straightener Name Role Phone Marine Glass MD Primary Care Provider [phone] Reason for Visit * Reason Comments Suspicious Skin Lesion Encounter Details Date Type Department Care Team (Late st Contact Info) Description 12/27/2024 10:00 AM EDT [facility] [address] [facility] [address] [place] [phone] Karen Espinal MD [address] [facility] [address] [place] [address] Seborrheic keratosis, inflamed (Primary Dx); Inflamed skin tag; Milia Social History Tobacco Use Types Packs/Day Years [...] on file documented as of this encounter Progress Notes * Karen Espinal MD - 12/27/2024 10:00 AM EDT Lesions: Location: left upper arm Duration: years Quality: itchy Associated symptoms: non-healing Treatments: none Lesion # 2: Location: axilla, under breasts, back of knees Duration: on going Quality: denies pain, denies itch, denies bleeding Modifying factors: rubs on clothing, aggravated by shaving Associated symptoms: non-healing Treatments: none New patient All pertinent medical history, medications, and allergies were reviewed. General Exam: alert, oriented to person, place, and time, normal affect, well appearing Unaccompanied A focused exam completed based on patient reported problems, see below: Skin Exam 1. SEBORRHEIC KERATOSIS, INFLAMED (4) Left Popliteal Fossa, Left Upper Arm - Posterior, Right Popliteal Fossa, Right Thigh - Anterior [place] and brown stuck on verrucous scaly papule with surrounding erythema The patient was informed that symptomatic seborrheic keratoses are benign growths that become inflamed, itchy, tender, traumatized, caught on clothing, or bleed. Symptomatic lesions can be treated with cryotherapy or curretage. Thicker lesions treated with cryotherapy may require more than one treatment. The patient was instructed to notify the office if abnormal redness or tenderness develops atthe treatment site. Cryotherapy today, see procedure note. Diagnosis: Inflamed seborrheic keratosis Indication: Inflamed Consent: Verbal consent was obtained and risks were discussed, including, but not limited to risks of scarring, darker or installation and service technician pigmentary changes, recurrence, incomplete removal and infection. Method: Liquid nitrogen was used to treat the lesion(s) with two 5-10 second freeze-thaw cycles Number of lesions treated: 4 Post-procedure instructions: Instructions were given orally and in writing. The office will be contacted if the lesion fails to resolve despite treatment, or if a side effect develops such as abnormal crusting, scabbing, redness or tenderness Cryotherapy, skin lesion - Left Popliteal Fossa, Left Upper Arm - Posterior, Right Popliteal Fossa,Right Thigh - Anterior 2. INFLAMED SKIN TAG (2) Left Axilla, Right Axilla Fleshy, skin-colored sessile and pedunculated papules with surrounding erythema The patient was informed that skin tags are benign growths usually found around the neck or in the axillae. Due to symptoms/inflammation, removal performed today, see procedure note. Procedure: Skin tag removal Informed consent: Discussed risks (permanent scarring, infection, pain, bleeding, bruising, redness, and recurrence of the lesion) and benefits of the procedure, as well as the alternatives. She is aware that skin tags are benign lesions, and their removal is often not considered medically necessary. Informed consent was obtained and waiver was signed if needed. Anesthesia: 1% lidocaine with epinephrine and a 1:10 solution of 8.4% sodium bicarbonate, Quantity:0.5 cc The area was prepared and draped in a standard fashion. Snip removal was performed. Bleeding was controlled with aluminum chloride A sterile dressing was applied. The patient tolerated procedure well. The patient was instructed on post-op care. Number of lesions removed: 2 3. MILIA Head - Anterior (Face) Small white or yellow papules. Reassure, benign. Discussed milia may self resolve or they can be removed for a cosmetic fee. 2 were removed on the face today. Next Visit: rec pt schedule FBSE documented in this encounter Plan of Treatment Not on file documented as of this encounter Procedures Procedure Name Priority Date/Time Associated Diagnosis Comments CRYOTHERAPY SKIN LESION Routine 12/28/19 10:22 AM EDT Seborrheic keratosis, inflamed documented in this encounter Results * Cryotherapy, skin lesion (12/27/2024 10:22 AM EDT) us Karen Espinal MD DERM PROCEDURE ORDERABLES Fin al Result documented in this encounter Visit Diagnoses Diagnosis Seborrheic keratosis, inflamed- Primary Inflamed skin tag Milia Sebaceous cyst documented in this encounter Care Teams Drum Straightener Relationship Specialty Start Date End Date Marine Glass MD PCP - General Family Medicine 09/26/22 documented as of this encounter
--- OUTSIDE RECORDS SUMMARY | 2024-12-29 11:14 | XMS_ITS | Clinical Summary ---
Author Organization [facility] Address [address], [address] [place] [address] Care Team Providers Care Fast Food Crew Lead Name Role Phone Marine Glass MD Primary Care Provider [phone] Allergies Active Allergy Reactions Criticality Noted Date [...] of Treatment Not on file Care Teams Fast Food Crew Lead Relationship Specialty Start Date End Date Marine Glass MD PCP - General Family Medicine 10/19/18
--- OUTSIDE RECORDS SUMMARY | 2024-12-29 11:14 | XMS_ITS | Encounter Summary ---
Author Organization [facility] Address [address] [place] [address] Care Team Providers Care Hair Colorist Name Role Phone Marine Glass MD Primary Care Provider [phone] Encounter Details Date Type Department Care Team (Late st Contact Info) Description 10/13/2022 Orders Only [facility] [address] [place] [address] Fabi De Anda DDD (degenerative [...] disc documented in this encounter Care Teams Hair Colorist Relationship Specialty Start Date End Date Marine Glass MD PCP - General Family Medicine 09/26/22 documented as of this encounter
--- OUTSIDE RECORDS SUMMARY | 2024-12-29 11:14 | XMS_ITS | Encounter Summary ---
Author Organization [id number] [address] [place] [address] Care Team Providers Care Rail Car Maintenance Mechanic Name Role Phone Marine Glass MD Primary Care Provider [phone] Reason for Visit * Reason Onset Date Comments Med Refill 11/25/2022 Encounter Details Date Type Department Care Team (Late st Contact Info) Description 11/25/2022 Refill [facility] [address] [place] [phone] Miquel Fabian, PA-C [address] [place], [place] [id number] Med Refill Social History Tobacco Use Types [...] was addressed yesterday and sent to [facility]. Pt needs labs done for further refills. documented in this encounter Plan of Treatment Not on file documented as of this encounter Visit Diagnoses Not on filedocumented in this encounter Additional Health Concerns Assessment Noted Time PHQ-9 Depression Total Score: 0 04/24/20 20 10:41 AM EST documented as of this encounter Care Teams Rail Car Maintenance Mechanic Relationship Specialty Start Date End Date Marine Glass MD [address] [place] [address] PCP - General 07/15/23 documented as of this encounter
--- OUTSIDE RECORDS SUMMARY | 2024-12-29 11:14 | XMS_ITS | Encounter Summary ---
Author Organization [facility] [employer] Address [id number] [address] [place] [address] Care Team Providers Care Sparker And Patcher Name Role Phone Marine Glass MD Primary Care Provider [phone] Encounter Details Date Type Department Care Team (Late st Contact Info) Description 12/04/2022 Orders Only [facility] [address] [place] [phone] Jacqueline Sparrow, RN Primary hypertension (Primary Dx); [...] - 146 mmol/L 12/29/2022 1:41 PM EDT [facility] Potassium, Bld 3.9 3.5 - 5.0 mmol/L 12/29/2022 1:41 PM EDT [facility] Chloride 103 98 - 109 mmol/L 12/29/2022 1:41 PM EDT [facility] CO2 30 22 - 32 mmol/L 12/29/2022 1:41 PM EDT [facility] Anion gap 10 5 - 15 mmol/L 12/29/2022 1:41 PM EDT [facility] BUN 23 5 - 27 mg/dL 12/29/2022 1:41 PM EDT [facility] Creatinine 1.04(H) 0.40 - 1.00 mg/dL 12/29/2022 1:41 PM EDT [facility] Comment:METHOD TRACEABLE TO IDMS STANDARD Glucose 95 65 - 99 mg/dL 12/29/2022 1:41 PM EDT [facility] Calcium 10.0 8.5 - 10.5 mg/dL 12/29/2022 1:41 PM EDT [facility] eGFR (CKD-EPI)non-ra ce dependent 56(L) >59 ml/min/1.7 3sq.m 12/29/2022 1:41 PM EDT [facility] Comment: Reported eGFR is based on the CKD-EPI 2020 equation that does not use a race coefficient. PLASMA 12/29/2022 10:2 8 AM EDT 12/29/2022 10:29 AM EDT us Mike Craft MD LAB BLOOD ORDERABLES Final Re sult [facility] [address] [place] [address] documented in this encounter Visit Diagnoses Diagnosis Primary hypertension- Primary Unspecified essential hypertension Paroxysmal atrial fibrillation ([facility]) Atrial fibrillation documented in this encounter Additional Health Concerns Assessment Noted Time PHQ-9 Depression Total Score: 0 04/24/20 20 10:41 AM EST documented as of this encounter Care Teams Sparker And Patcher Relationship Specialty Start Date End Date Marine Glass MD [address] [place] [address] PCP - General 07/15/23 documented as of this encounter
--- OUTSIDE RECORDS SUMMARY | 2024-12-29 11:14 | XMS_ITS | Encounter Summary ---
Author Organization [facility] Address [id number] [address] [place] [address] Care Team Providers Care Materials Director Name Role Phone Marine Glass MD Primary Care Provider [phone] Encounter Details Date Type Department Care Team (Late st Contact Info) Description 11/09/2024 Results Follow-Up [facility] [address] [place] [address] Alyce Deras, RICARDO CBC Social [...] documented as of this encounter Care Teams Materials Director Relationship Specialty Start Date End Date Marine Glass MD [address] [place] [address] PCP - General 07/15/23 documented as of this encounter
--- OUTSIDE RECORDS SUMMARY | 2024-12-29 11:14 | XMS_ITS | Clinical Summary ---
Author Organization [facility] Healthcare Address [address] [place] [address] Care Team Providers Care Dealer Relationship Manager Name Role Phone Marine Glass MD Primary Care Provider [phone] Allergies Active Allergy Reactions Criticality Noted Date Comments Baclofen Rash Low 09/12/2022 Codeine Unknown 09/12/2022 Hydrocodone-Acetaminophen Rash Low 09/12/2022 Levofloxacin Rash Low 09/12/2022 Morphine 09/12/2022 Other Reaction(s): Unknown Penicillins Unknown 09/12/2022 Tramadol Rash Low 09/12/2022 Medications Multiple Vitamin (MULTIVITAMIN ADULT PO) Active Melatonin 10 MG capsule Active lisinopril (Prinivil) 20 MG tablet Take 20 mg by mouth Daily Active hydroCHLOROthia zide (HYDRODiuril) 25 MG tablet Take 25 mg by mouth Daily Active clindamycin (Cleocin) 300 MG capsule every 8 (eight) hours 01/03/2022 Active atenolol (Tenormin) 50 MG tablet Take 25 mg by mouth Daily 04/11/2009 Active apixaban (Eliquis) 5 MG tablet Take 5 mg by mouth in the morning and 5 mg before bedtime. Active naproxen sodium (Aleve) 220 MG tablet Take 220 mg by mouth as needed in the morning and 220 mg as needed in the evening. Active omeprazole OTC (PriLOSEC OTC) 20 MG EC tablet Take 20 mg by mouth in the morning. Take before meals. Active oxybutynin XL (Ditropan-XL) 5 MG 24 hr tablet Take 5 mg by mouth Daily Do not crush, chew, or split. Active temazepam (Restoril) 22.5 MG capsule Take 30 mg by mouth as needed at bedtime for sleep Active potassium chloride CR (Klor-Con M10) 10 MEQ ER tablet Take 10 mEq by mouth Daily Do not crush or chew. Active ferrous sulfate 325 (65 Fe) MG [...] right side 09/12/2022 Other chronic pain 09/12/2022 Encounters Date Type Department Care Team Description 12/27/2024 10:00 AM EDT [facility] [address] [place] [address] Karen Espinal MD Seborrheic keratosis, inflamed (Primary Dx); Inflamed skin tag; Amna 12/27/2024 Bamboo flowsheet [facility] [address] [place] [address] Karen Espinal MD 12/27/2024 Travel from Last 3 Months Family History Medical [...] Last Done Comments Influenza Vaccine (#1) 2025 , 02/10/2023, 02/01/2022, Additional history exists Pneumococcal Vaccine: 65+ Years Completed 01/05/2018, 02/17/2017, 02/05/2017 Procedures Procedure Name Priority Date/Time Associated Diagnosis Comments CRYOTHERAPY SKIN LESION Routine 12/28/19 10:22 AM EDT Seborrheic keratosis, inflamed from Last 3 Months Results * Cryotherapy, skin lesion (12/27/2024 10:22 AM EDT) Karen Espinal MD DERM PROCEDURE ORDERABLES Fin al Result from Last 3 Months Insurance [employer] MED[employer]ARE [employer]VANTAGE Care Teams Dealer Relationship Manager Relationship Specialty Start Date End Date Marine Glass MD PCP - General Family Medicine 09/26/22
--- OUTSIDE RECORDS SUMMARY | 2024-12-29 11:14 | XMS_ITS | Encounter Summary ---
Author Organization [facility] Address [id number] [address] [place] [address] Care Team Providers Care Oil Plant Operator Name Role Phone Marine Glass MD Primary Care Provider [phone] Reason for Visit * Reason Onset Date Comments Med Refill 11/15/2024 Encounter Details Date Type Department Care Team (Late st Contact Info) Description 11/15/2024 Refill [facility] [address] [place] [phone] Vinicio Causey PA-C [address] [place] [address] Med Refill Social History Tobacco Use Types [...] encounter Visit Diagnoses Diagnosis Paroxysmal atrial fibrillation ([facility]) Atrial fibrillation documented in this encounter Additional Health Concerns Assessment Noted Time PHQ-9 Depression Total Score: 0 04/24/20 20 10:41 AM EST documented as of this encounter Care Teams Oil Plant Operator Relationship Specialty Start Date End Date Marine Glass MD [address] [place] [address] PCP - General 07/15/23 documented as of this encounter
--- OUTSIDE RECORDS SUMMARY | 2024-12-29 11:14 | XMS_ITS | Encounter Summary ---
Author Organization [facility] Address [id number] [address] [place] [address] Care Team Providers Care Carbon Sequestration Plant Operator Name Role Phone Marine Glass MD Primary Care Provider [phone] Reason for Visit * Reason Comments Med Refill Encounter Details Date Type Department Care Team (Late st Contact Info) Description 12/27/2024 Refill [facility] [address] [place] [address] Divine Kaur, PHOTO TUBE ASSEMBLER-TROUBLE DISPATCHER [address] [place] [address] Med Refill Social History Tobacco Use Types [...] encounter Miscellaneous Notes * Telephone Encounter - Angelica Kelly CMA - 12/27/2024 1:36 AM EDT Theresa: 11/08/2024 documented in this encounter Plan of Treatment Not on file documented as of this encounter Visit Diagnoses Not on filedocumented in this encounter Additional Health Concerns Assessment Noted Time PHQ-9 Depression Total Score: 0 04/24/20 20 10:41 AM EST documented as of this encounter Care Teams Carbon Sequestration Plant Operator Relationship Specialty Start Date End Date Marine Glass MD [address] [place] [address] PCP - General 07/15/23 documented as of this encounter
--- OUTSIDE RECORDS SUMMARY | 2024-12-29 11:14 | XMS_ITS | Encounter Summary ---
Author Organization [facility] Address [address] [place] [address] Care Team Providers Care Sanding Machine Tender Name Role Phone Marine Glass MD Primary Care Provider [phone] Encounter Details Date Type Department Care Team (Late st Contact Info) Description 09/26/2022 Abstract [facility] [address] [place] [address] Melchor Rivera DO [address] [place] [address] Social History Tobacco Use Types Packs/Day Years [...] on filedocumented in this encounter Care Teams Sanding Machine Tender Relationship Specialty Start Date End Date Marine Glass MD PCP - General Family Medicine 09/26/22 documented as of this encounter
--- OUTSIDE RECORDS SUMMARY | 2024-12-29 11:14 | XMS_ITS | Encounter Summary ---
Author Organization [facility] Sys tem Address [id number] [address] [place] [address] Care Team Providers Care Piece Goods Clerk Name Role Phone Marine Glass MD Primary Care Provider [phone] Encounter Details Date Type Department Care Team (Late st Contact Info) Description 06/26/2023 Orders Only [facility] [address] [place] [phone] External, Scanning Provider Social History Tobacco Use [...] 4:10 PM EST) us Scanning Provider External [facility] Final Result Performing Organization Address City/[facility]/ZIP Co de Phone Number MANUALLY TRANSCRIBED RESULTS * ECG 12 lead (06/26/2023 4:09 PM EST) us Scanning Provider External ECG ORDERABLES Final Result Performing Organization Address City/[facility] Co de Phone Number MANUALLY TRANSCRIBED RESULTS documented in this encounter Visit Diagnoses Not on filedocumented in this encounter Additional Health Concerns Assessment Noted Time PHQ-9 Depression Total Score: 0 04/24/20 20 10:41 AM EST documented as of this encounter Care Teams Piece Goods Clerk Relationship Specialty Start Date End Date Marine Glass MD [address] [place] [address] PCP - General 07/15/23 documented as of this encounter
--- OUTSIDE RECORDS SUMMARY | 2024-12-29 11:14 | XMS_ITS | Encounter Summary ---
Author Organization [facility] s tem Address [facility] [id number] [address] [place] [address] Care Team Providers Care Supervisor Paint Department Name Role Phone Marine Glass MD Primary Care Provider [phone] Reason for Visit * Reason Onset Date Comments Pre-op Exam 04/24/2020 Encounter Details Date Type Department Care Team (Late st Contact Info) Description 04/24/2020 [facility] [address] [facility] [address] [place] [address] Irene Short RN Pre-op Exam [...] as of this encounter Care Teams Supervisor Paint Department Relationship Specialty Start Date End Date Marine Glass MD [address] [place] [id number] PCP - General 07/15/23 documented as of this encounter
--- OUTSIDE RECORDS SUMMARY | 2024-12-29 11:14 | XMS_ITS | Encounter Summary ---
Author Organization [facility] Address [id number] [address] [place] [address] Care Team Providers Care Physiotherapy Aide Name Role Phone Marine Glass MD Primary Care Provider [phone] Reason for Visit * Reason Onset Date Comments Med Refill 04/19/2018 Encounter Details Date Type Department Care Team (Late st Contact Info) Description 04/19/2018 Refill [facility] General Surgery [address] [place] [phone] [place] [address] [place] [id number] Social History Tobacco Use Types Packs/Day Years [...] documented as of this encounter Care Teams Physiotherapy Aide Relationship Specialty Start Date End Date Marine Glass MD [address] [place] [id number] PCP - General 07/15/23 documented as of this encounter
--- OUTSIDE RECORDS SUMMARY | 2024-12-29 11:14 | XMS_ITS | Encounter Summary ---
Author Organization [facility] Address [id number] [address] [place] [address] Care Team Providers Care Reserve Officer Name Role Phone Marine Glass MD Primary Care Provider [phone] Reason for Visit * Reason Comments Med Refill Encounter Details Date Type Department Care Team (Late st Contact Info) Description 03/28/2019 Refill [facility] [address] [place] [address] Miko Vasquez, SCHOOL LUNCH MONITOR-REGIONAL REHABILITATION DIRECTOR [address] [place] [address] Med Refill Social History Tobacco Use Types [...] Notes * Telephone Encounter - Divine Kaur APRN-REGIONAL REHABILITATION DIRECTOR - 03/28/2019 12:42 AM EST Patient needs [...] 39 - 130 U/L 04/07/2019 4:18 PM [facility] AST 23 0 - 41 U/L 04/07/2019 4:18 PM [facility] ALT 14 0 - 31 U/L 04/07/2019 4:18 PM [facility] Total Bilirubin 0.4 0.3 - 1.2 mg/dL 04/07/2019 4:18 PM [facility] Bilirubin, direct 0.1 0.0 - 0.4 mg/dL 04/07/2019 4:18 PM [facility] Albumin 4.0 3.2 - 5.3 g/dL 04/07/2019 4:18 PM [facility] Total Protein 7.3 6.0 - 8.0 g/dL 04/07/2019 4:18 PM [facility] Serum / Unknown 04/07/2019 1 1:04 AM EST 04/07/2019 11:05 AM EST us Divine HANEY LAB BLOOD ORDERABLES Final Result [facility] [address] [facility] [place] [address] documented in this encounter Visit Diagnoses Diagnosis Paroxysmal atrial fibrillation ([facility])- Primary Atrial fibrillation documented in this encounter Additional Health Concerns Infection Onset Date Last Indicated Resolved Time COVID-19 Rule-Out 05/20/2021 05/20/2021 05/20/2021 6:32 PM EST COVID-19 Rule-Out 08/02/2021 08/02/2021 08/03/2021 1:10 AM EDT documented as of this encounter Care Teams Reserve Officer Relationship Specialty Start Date End Date Marine Glass MD [address] [place] [id number] PCP - General 07/15/23 documented as of this encounter
--- OUTSIDE RECORDS SUMMARY | 2024-12-29 11:14 | XMS_ITS | Clinical Summary ---
Author Organization [employer] Address [address] [place] [address] Care Team Providers Care Die Cut Operator Name Role Phone Marine Glass MD Primary Care Provider [phone] Allergies Active Allergy Reactions Criticality Noted Date [...] month, then 2x/week for maintainence, [facility]/pharmacy #[id number], 165, cm, 02/11/23 10:41:00 EDT, Height/Length [...] = 0.6 oz pur e alcohol) social [facility] Utilities Answer Date Recorded In the past 12 months has th e [employer], gas, oil, or water [employer] threatened to shut off services in your [...] this topic Medical Devices Implanted Type Area Seismograph Operator Device Identifier Shelf Expiration Date Model / Serial / Lot Anchors, 5.5 Non Punching - [id number] Implanted:Qty: 1 on 07/07/2023 by Miko Pascual MD at [facility] Right: Hip [employer] 10/31/2026 [id number]-[id number] / / [id number] Anchors, 5.5 Non Punching - [id number] Implanted:Qty: 3 on 07/07/2023 by Miko Pascual MD at [facility] Right: Hip [employer] 05/03/2027 [id number] / / [id number] Procedures Procedure Name Priority Date/Time Associated Diagnosis Comments BASIC METABOLIC PANEL Today 2023 4:48 AM EST from Last 3 Months or Most Recently Relevant to Health Maintenance Results * (ABNORMAL) BASIC METABOLIC PANEL (2023 4:48 AM EST) Glucose 141(H) 70 - 100 MG/DL [address] Comment: NORMAL <100 mg/dL PREDIABETES 101-126 mg/dL DIABETES 126 mg/dL or higher BUN 30(H) 7 - 20 MG/DL [address] CREATININE SERUM 1.10 0.70 - 1.20 MG/DL [address] SODIUM 134(L) 137 - 145 MMOL/L [address] Potassium 3.8 3.5 - 5.1 MMOL/L [address] CHLORIDE 103 98 - 107 MMOL/L [address] Comment:Please note: Triglyc eride levels of 600mg/dL or higher may positively bias chloride results by approximately 2.1 mmol CARBON DIOXIDE (CO2) 30 22 - 30 MMOL/L [address] ANION GAP 1 MMOL/L [address] CALCIUM 8.7 8.4 - 10.2 MG/DL [address] ESTIMATED GFR, NON AMER 51 ml/min/1. 73sq.m [address] ESTIMATED GFR, 62 ml/min/1. 73sq.m [address] GFR COMMENT Average GFR for 70+ years old = 75. [address] Comment: Chronic Kidney disease, GFR = <60. Kidney failure, GFR = <15. The GFR estimate is not adjusted for extreme body surface area or acute process, nor has it been validated for women or ethnic groups other than and . Blood 2023 4:48 AM EST 2023 5:12 AM EST us Chance Mahoney MD CHEMISTRY ORDERABLES Final Resul t [address] [address] from Last 3 Months or Most Recently Relevant to Health Maintenance Insurance Medicare [employer] PPO Advance Directives For more information, please contact: [phone] (7:30 AM - 6PM [facility], Thursday-Thursday) Documents on File Type Date Recorded Patient Undercutter Expl anation Advance Directives/Living Will 06/25/2023 9:17 AM DURABLE POWER OF DIRECTOR INPATIENT HEADACHE PROGRAM FOR HEALTHCARE 06/25/23 Advance Directives/Living Will 06/25/2023 9:13 AM LIVING WILL 06/25/23 * Full Code (Latest Code Status on File) Date Activated Date Inactivated Comments 07/07/2023 3:27 PM Care Teams Die Cut Operator Relationship Specialty Start Date End Date Marine Glass MD PCP - General Family Medicine 05/11/23
--- OUTSIDE RECORDS SUMMARY | 2024-12-29 11:14 | XMS_ITS | Encounter Summary ---
Author Organization [facility] tem Address [id number] [address] [place] [address] Care Team Providers Care Procedures Tech Name Role Phone Marine Glass MD Primary Care Provider [phone] Encounter Details Date Type Department Care Team (Latest Contact Info) Description 11/08/2024 Results Follow-Up [facility] [address] [place] [address] Sander Pollack RN Comprehensive metabolic [...] documented as of this encounter Care Teams Procedures Tech Relationship Specialty Start Date End Date Marine Glass MD [address] [place] [address] PCP - General 07/15/23 documented as of this encounter
--- OUTSIDE RECORDS SUMMARY | 2024-12-29 11:14 | XMS_ITS | Encounter Summary ---
Author Organization [facility] Sys tem Address [facility][id number] [address] [place] [address] Care Team Providers Care Visual Journalist Name Role Phone Marine Glass MD Primary Care Provider [phone] Encounter Details Date Type Department Care Team (Late st Contact Info) Description 07/29/2021 Orders Only [facility] [address] [place] [phone] Jacqueline Sparrow, RN Paroxysmal atrial fibrillation ([facility]) (Primary Dx) Social History Tobacco Use Types [...] - 11.0 X10E9/L 07/29/2021 3:46 PM EDT [facility] RBC count 4.03 3.80 - 5.20 X10E12/L 07/29/2021 3:46 PM EDT [facility] Hemoglobin 11.7 11.7 - 15.5 g/dL 07/29/2021 3:46 PM EDT [facility] Hematocrit 35.4 35 - 47 % 07/29/2021 3:46 PM EDT [facility] MCV 88 80 - 100 fL 07/29/2021 3:46 PM EDT [facility] MCH 29.0 27 - 34 pg 07/29/2021 3:46 PM EDT [facility] MCHC 33.0 32 - 36 g/dL 07/29/2021 3:46 PM EDT [facility] RDW 15.5(H) 11.5 - 15.0 % 07/29/2021 3:46 PM EDT [facility] Platelets 247 150 - 450 X10E9/L 07/29/2021 3:46 PM EDT [facility] MPV 7.2 7 - 12 fL 07/29/2021 3:46 PM EDT [facility] % neutrophils 56.1 % 07/29/2021 3:46 PM EDT [facility] % lymphocytes 29.3 % 07/29/2021 3:46 PM EDT [facility] % monocytes 9.9 % 07/29/2021 3:46 PM EDT [facility] % eosinophils 3.7 % 07/29/2021 3:46 PM EDT [facility] % Basophils 1.0 % 07/29/2021 3:46 PM EDT [facility] Neutrophils Absolute (A) 3.9 1.5 - 6.6 X10E9/L 07/29/2021 3:46 PM EDT [facility] Lymphocytes Absolute 2.1 1.0 - 3.5 X10E9/L 07/29/2021 3:46 PM EDT [facility] Monocytes Absolute 0.7 0 - 0.9 X10E9/L 07/29/2021 3:46 PM EDT [facility] Eosinophils Absolute 0.3 0.0 - 0.4 X10E9/L 07/29/2021 3:46 PM EDT [facility] Basophils Absolute 0.1 0.0 - 0.2 X10E9/L 07/29/2021 3:46 PM EDT [facility] Blood / Unknown 07/29/2021 1 1:32 AM EDT 07/29/2021 11:33 AM EDT us Mike Burgess MD LAB BLOOD ORDERABLES Final Result [place] [facility] [address] [facility] [address] [place] [address] * (ABNORMAL) Basic Metabolic Panel (07/29/2021 11:32 AM EDT) Sodium 142 134 - 146 mmol/L 07/29/2021 5:13 PM EDT [facility] Potassium, Bld 4.2 3.5 - 5.0 mmol/L 07/29/2021 5:13 PM EDT [facility] Chloride 103 98 - 109 mmol/L 07/29/2021 5:13 PM EDT [facility] CO2 25 22 - 32 mmol/L 07/29/2021 5:13 PM EDT [facility] Anion gap 14 5 - 15 mmol/L 07/29/2021 5:13 PM EDT [facility] BUN 27 5 - 27 mg/dL 07/29/2021 5:13 PM EDT [facility] Creatinine 1.12(H) 0.40 - 1.00 mg/dL 07/29/2021 5:13 PM EDT [facility] Comment:METHOD TRACEABLE TO IDMS STANDARD Glucose 104(H) 65 - 99 mg/dL 07/29/2021 5:13 PM EDT [facility] Calcium 9.9 8.5 - 10.5 mg/dL 07/29/2021 5:13 PM EDT [facility] GFR MDRD Non Af Amer 48(L) >59 ml/min/1.7 3sq.m 07/29/2021 5:13 PM EDT [facility] GFR MDRD Af Amer 58(L) >59 ml/min/1.7 3sq.m 07/29/2021 5:13 PM EDT [facility] PLASMA 07/29/2021 11:3 2 AM EDT 07/29/2021 11:33 AM EDT us Mike Burgess MD LAB BLOOD ORDERABLES Final Result [place] [facility] [address] [facility] [address] [place] [address] documented in this encounter Visit Diagnoses Diagnosis Paroxysmal atrial fibrillation ([facility]-H[facility])- Primary Atrial fibrillation documented in this encounter Additional Health Concerns Infection Onset Date Last Indicated Resolved Time COVID-19 Rule-Out 08/02/2021 08/02/2021 08/03/2021 1:10 AM EDT Assessment Noted Time PHQ-9 Depression Total Score: 0 04/24/20 20 10:41 AM EST documented as of this encounter Care Teams Visual Journalist Relationship Specialty Start Date End Date Marine Glass MD [address] [place] [address] PCP - General 07/15/23 documented as of this encounter
--- OUTSIDE RECORDS SUMMARY | 2024-12-29 11:14 | XMS_ITS | Clinical Summary ---
Author Organization [employer] tem Address [facility] [id number] [address] [place] [address] Care Team Providers Care Altitude Chamber Technician Name Role Phone Marine Glass MD Primary Care Provider [phone] Allergies Active Allergy Reactions Criticality Noted Date [...] for pain. Active NON FORMULARY Med Name:Luis ia vitamin 1 qd Active trospium (SANCTURA) 20 mg tablet Take 1 tablet (20 mg total) by mouth in the morning and 1 tablet (20 mg total) before bedtime. Active vitamins A,C,U-srvb-hvhcj r (ICAPS AREDS) 4,296 mcg-226 mg-90 mg capsule Take 1 capsule by mouth in the morning and 1 capsule before bedtime. 10/28/19 24 Active flecainide (TAMBOCOR) 50 mg tabletIndication [...] 08/10/24) 180 tablet 3 11/17/19 25 Active potassium chloride (K-TAB,KLOR-CON) 10 MEQ CR tablet TAKE 1 TABLET IN THE MORNING 90 tablet 3 11/30/19 25 Active atenoloL (TENORMIN) 50 mg tablet TAKE ONE AND ONE-HALF TABLETS IN THE MORNING 135 tablet 3 12/28/19 25 Active atenoloL (TENORMIN) 50 mg tablet Take 1 tablet (50 mg total) by mouth in the morning and 1 tablet (50 mg total) before bedtime. 11/09/19 25 025 Discontinued Active Problems Problem Noted Date Diagnosed Date Abnormal findings diagnostic imaging of heart and coronary circulation 07/29/2021 Overview (07/29/2021): Added automatically from request for surgery [id number] Dyspnea 06/30/2018 Overview (06/30/2018): Added automatically from request for surgery [id number] Palpitations 06/30/2018 Overview (06/30/2018): Added automatically from request for surgery [id number] SOB (shortness of breath) 05/12/2018 Hypertension 10/06/2017 Paroxysmal atrial fibrillation 08/31/2017 Resolved Problems Problem Noted Date Diagnosed Date Resolved Date Preoperative clearance 12/29/202211/08 Unstable angina 07/29/2021 08/16/2021 Overview (07/29/2021): Added automatically from request for surgery [id number] SOB (shortness of breath) 05/12/2018 SVT (supraventricular tachycardia) 11/16/2017 12/30/2019 Encounters Date Type Department Care Team Description 12/27/2024 Refill [facility] [address] [place] [address] Divine Kaur DOUGH MOLDER HAND-DEBT COUNSELOR Med Refill 11/24/2024 Refill [facility] [address] [place] [address] Jack Smith DOUGH MOLDER HAND-DEBT COUNSELOR Med Refill 11/15/2024 Refill [facility] [address] [place] [phone] Vinicio Causey, PANTERA Med Refill 11/09/2024 Results Follow-Up [facility] [address] [place] [address] Alyce Deras RN CBC 11/08/2024 9:00 AM EDT Office Visit [facility] [address] [place] [address] Karen Mart, DOUGH MOLDER HAND-DEBT COUNSELOR Paroxysmal atrial fibrillation ([facility]) (Primary Dx); Primary hypertension; Palpitations 11/08/2024 Results Follow-Up [facility] [address] [place] [address] Sander Pollack, RICARDO Comprehensive metabolic panel, Magnesium 11/08/2024 Refill [facility] [address] [place] [address] Rosangela Montague DOUGH MOLDER HAND-DEBT COUNSELOR Med Refill 11/06/2024 Travel 11/01/2024 Refill [facility] [address] [place] [address] Divine Kaur APRN-CNP Med Refill from Last 3 Months Family [...] EDT Primary hypertension 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) COMPREHENSIVE METABOLIC PANEL Routine 11/08/2024 9:52 AM EDT Primary hypertension 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) POCT EKG Routine 11/08/2024 Paroxysmal atrial fibrillation (CMS-HCC) HM COLONOSCOPY Routine 08/18/2012 from Last 3 Months or Most Recently Relevant to Health Maintenance Results * CBC (11/09/2024 10:16 AM EDT) WBC 5.1 4 - 11 x10E9/L 11/09/2024 1:58 PM EDT [facility] RBC Count 4.16 3.8 - 5.2 X10E12/L 11/09/2024 1:58 PM EDT [facility] Hemoglobin 13.6 11.7 - 15.5 g/dL 11/09/2024 1:58 PM EDT [facility] Hematocrit 40.0 35 - 47 % 11/09/2024 1:58 PM EDT [facility] MCV 96 80 - 100 fL 11/09/2024 1:58 PM EDT [facility] MCH 32.7 27 - 34 pg 11/09/2024 1:58 PM EDT [facility] MCHC 34.1 32 - 36 g/dL 11/09/2024 1:58 PM EDT [facility] RDW 12.8 11.5 - 15 % 11/09/2024 1:58 PM EDT [facility] Platelet Count 206 150 - 450 X10E9/L 11/09/2024 1:58 PM EDT [facility] MPV 7.0 7 - 12 fL 11/09/2024 1:58 PM EDT [facility] Blood Venous blood / Unknown Venipuncture / Unknown 11/09/2024 10:16 AM EDT 11/09/2024 10:16 AM EDT us Rosangela Montague DOUGH MOLDER HAND-DEBT COUNSELOR LAB BLOOD ORDERABLES Final Result [facility] [address] [place] [address], [place] [phone] * Magnesium (11/08/2024 9:52 AM EDT) MAGNESIUM 1.9 1.8 - 2.6 mg/dL 11/09/2024 1:19 AM EDT [facility] Blood Venous blood / Unknown Venipuncture / Unknown 11/08/2024 9:52 AM EDT 11/08/2024 9:52 AM EDT Divine Kaur DOUGH MOLDER HAND-DEBT COUNSELOR LAB BLOOD ORDERABLES Final Result [facility] [address] [place] [address], * (ABNORMAL) Comprehensive metabolic panel (11/08/2024 9:52 AM EDT) SODIUM 141 134 - 146 mmol/L 11/08/2024 2:01 PM EDT [facility] POTASSIUM 3.9 3.5 - 5.0 mmol/L 11/08/2024 2:01 PM EDT [facility] CHLORIDE 101 98 - 109 mmol/L 11/08/2024 2:01 PM EDT [facility] CARBON DIOXIDE 32 22 - 32 mmol/L 11/08/2024 2:01 PM EDT [facility] ANION GAP 8 5 - 15 mmol/L 11/08/2024 2:01 PM EDT [facility] BLOOD UREA NITROGEN 27 5 - 27 mg/dL 11/08/2024 2:01 PM EDT [facility] CREATININE 1.06(H) 0.40 - 1.00 mg/dL 11/08/2024 2:01 PM EDT [facility] Comment:METHOD TRACEABLE TO IDMS STANDARD GLUCOSE 109(H) 65 - 99 mg/dL 11/08/2024 2:01 PM EDT [facility] CALCIUM 10.0 8.5 - 10.5 mg/dL 11/08/2024 2:01 PM EDT [facility] TOTAL PROTEIN 7.2 6.0 - 8.0 g/dL 11/08/2024 2:01 PM EDT [facility] ALBUMIN 4.2 3.2 - 5.3 g/dL 11/08/2024 2:01 PM EDT [facility] ALKALINE PHOSPHATASE 48 39 - 130 U/L 11/08/2024 2:01 PM EDT [facility] AST 17 <=41 U/L 11/08/2024 2:01 PM EDT [facility] ALT 10 <=31 U/L 11/08/2024 2:01 PM EDT [facility] BILIRUBIN,TOTAL 0.5 0.3 - 1.2 mg/dL 11/08/2024 2:01 PM EDT [facility] EGFR Non-Race Dependent 54(L) >=60 ml/min/1.7 3sq.m 11/08/2024 2:01 PM EDT [facility] Comment: Reported eGFR is based on the CKD-EPI 2020 equation that does not use a race coefficient. Blood Venous blood / Unknown Venipuncture / Unknown 11/08/2024 9:52 AM EDT 11/08/2024 9:52 AM EDT us Divine Kaur DOUGH MOLDER HAND-DEBT COUNSELOR LAB BLOOD ORDERABLES Final Result Performing Organization Address [facility]/ZIP Co de Phone Number [facility] [address] [place] [address], [place] [phone] * POCT EKG (11/08/2024) us Karen Mart DOUGH MOLDER HAND-DEBT COUNSELOR ECG ORDERABLES Final Resu lt Performing Organization Address City/[facility]/ZIP Co de Phone Number MANUALLY TRANSCRIBED RESULTS * COLONOSCOPY (08/18/2012) Colonoscopy COLONOSCOPY [facility] EXTERNAL NON-INTERFACE D REF LAB us Scanning Provider External HEALTH MAINTENANCE Fi nal Result Performing Organization Address [facility] Co de Phone Number [facility] EXTERNAL NON-INTERFACED REF LAB [address] [facility] [place] [address] from Last 3 Months or Most Recently Relevant to Health Maintenance Insurance [employer] MEDICARE Advance Directives Documents on File Type Date Recorded Patient Drop Hammer Setter Up Expl anation Living Will 05/21/2020 9:37 AM Durable Power of School Age Lead Teacher 05/21/2020 9:27 AM Durable Power of School Age Lead Teacher 05/16/2020 6:05 AM Living Will 05/16/2020 6:04 AM Healthcare Agents on File Name Relationship Healthcare Agent [facility] Communication David Burns Spouse Health Care Agent Samantha Inman Daughter [facility] re Agent Care Teams Altitude Chamber Technician Relationship Specialty Start Date End Date Marine Glass MD [address] [place], [place] [id number] PCP - General 07/15/23
--- OUTSIDE RECORDS SUMMARY | 2024-12-29 11:14 | XMS_ITS | Encounter Summary ---
Author Organization [facility] Address [id number] [address] [place] [address] Care Team Providers Care Curam Developer Name Role Phone Marine Glass MD Primary Care Provider [phone] Encounter Details Date Type Department Care Team (Late st Contact Info) Description 08/10/2023 [facility] [address] [facility] [place] [address] Meredith Bernal MA Social History [...] documented as of this encounter Care Teams Curam Developer Relationship Specialty Start Date End Date Marine Glass MD [address] [place] [address] PCP - General 07/15/23 documented as of this encounter
--- OUTSIDE RECORDS SUMMARY | 2024-12-29 11:14 | XMS_ITS | Encounter Summary ---
Author Organization [facility] Address [id number] [address] [place] [address] Care Team Providers Care Student Financial Services Counselor Name Role Phone Marine Glass MD Primary Care Provider [phone] Reason for Visit * Reason Onset Date Comments Med Refill 05/26/2022 Encounter Details Date Type Department Care Team (Late st Contact Info) Description 05/26/2022 Refill [facility] [address] [place] [address] Christine Alejandra, CAFE WORKER-MANAGEMENT ACCOUNTANT [address] [place] [address] Med Refill Social History Tobacco Use Types [...] documented as of this encounter Care Teams Student Financial Services Counselor Relationship Specialty Start Date End Date Marine Glass MD [address] [place] [address] PCP - General 07/15/23 documented as of this encounter
--- OUTSIDE RECORDS SUMMARY | 2024-12-29 11:14 | XMS_ITS | Encounter Summary ---
Author Organization [facility] [employer] Address [facility] [id number] [address] [place] [address] Care Team Providers Care Postal Sorting Officer Name Role Phone Marine Glass MD Primary Care Provider [phone] Encounter Details Date Type Department Care Team (Late st Contact Info) Description 07/21/2023 [facility]phone [facility] [address] [place] [address] Ari Leija Social History Tobacco [...] documented as of this encounter Care Teams Postal Sorting Officer Relationship Specialty Start Date End Date Marine Glass MD [address] [place] [address] PCP - General 07/15/23 documented as of this encounter
--- OUTSIDE RECORDS SUMMARY | 2024-12-29 11:14 | XMS_ITS | Encounter Summary ---
Author Organization [facility] Address [id number] [address] [place] [address] Care Team Providers Care Space Operations Officer Name Role Phone Marine Glass MD Primary Care Provider [phone] Reason for Visit * Reason Onset Date Comments Results 10/26/2017 Encounter Details Date Type Department Care Team (Late st Contact Info) Description 10/26/2017 Telephone [facility] [address] [place] [address] Jacqueline Sparrow, RICARDO Results Social [...] documented as of this encounter Care Teams Space Operations Officer Relationship Specialty Start Date End Date Marine Glass MD [address] [place] [id number] PCP - General 07/15/23 documented as of this encounter
--- OUTSIDE RECORDS SUMMARY | 2024-12-29 11:14 | XMS_ITS | Encounter Summary ---
Author Organization [facility] Address [address] [place] [address] Care Team Providers Care Supervisor Metal Furniture Fabrication Name Role Phone Marine Glass MD Primary Care Provider [phone] Encounter Details Date Type Department Care Team (Late st Contact Info) Description 12/27/2024 Bamboo flowsheet [facility] [address] [place] [address] Karen Espinal MD [address] [place] [address] Social History Tobacco Use Types Packs/Day Years [...] on filedocumented in this encounter Care Teams Supervisor Metal Furniture Fabrication Relationship Specialty Start Date End Date Marine Glass MD PCP - General Family Medicine 09/26/22 documented as of this encounter
--- OUTSIDE RECORDS SUMMARY | 2024-12-29 11:14 | XMS_ITS | Encounter Summary ---
Author Organization [facility] [employer] Address [place]-[id number] [address] [place] [address] Care Team Providers Care Farm Agent Name Role Phone Marine Glass MD Primary Care Provider [phone] Encounter Details Date Type Department Care Team (Late st Contact Info) Description 03/31/2022 Orders Only [facility] [address] [place] [phone] Jacqueline Sparrow, RN Hypokalemia (Primary Dx) Social [...] - 5.0 mmol/L 04/14/2022 3:42 PM EST [facility] 04/14/2022 11:1 9 AM EST 04/14/2022 11:20 AM EST us Mike Craft MD LAB BLOOD ORDERABLES Final Re sult [employer] [facility] [address] [facility] [place] [address] documented in this encounter Visit Diagnoses Diagnosis Hypokalemia- Primary Hypopotassemia documented in this encounter Additional Health Concerns Assessment Noted Time PHQ-9 Depression Total Score: 0 04/24/20 20 10:41 AM EST documented as of this encounter Care Teams Farm Agent Relationship Specialty Start Date End Date Marine Glass MD [address] [place] [id number] PCP - General 07/15/23 documented as of this encounter
--- OUTSIDE RECORDS SUMMARY | 2024-12-29 11:14 | XMS_ITS | Encounter Summary ---
Author Organization [facility] Address [address] [place] [address] Care Team Providers Care Educational Technician Name Role Phone Marine Glass MD Primary Care Provider [phone] Encounter Details Date Type Department Care Team (Latest Contact Info) Description 12/27/2024 Travel Social History Tobacco Use Types Packs/Day [...] on filedocumented in this encounter Care Teams Educational Technician Relationship Specialty Start Date End Date Marine Glass MD PCP - General Family Medicine 09/26/22 documented as of this encounter
--- OUTSIDE RECORDS SUMMARY | 2024-12-29 11:20 | XMS_ITS | CCD ---
Author Organization [facility] Care Team Providers [facility] [employer] Name Role Phone PHYSICIAN, DEFAULT Unavailable Unavailable PHYSICIAN, DEFAULT Unavailable Unavailable Elliot Starks MD Primary Care Provider DR ELLOIT STARKS Primary Care Unavailable ANETA EDUARDO Admitting [...] Care Provider MD Elliot Starks Attending Provider [phone] Elliot Starks Admitting Unavailable Elliot Starks Attending Unavailable ELLIOT STARKS Primary Care Physician Elliot Starks MD Primary Care Provider Melchor Rivera Admitting Unavail able Melchor Rivera Attending Unavail able Elliot Starks Primary Care Unavailable Ricci Perez Consulting Unavailable Elliot Starks MD Primary Care Provider Elliot Starks MD Primary Care Provider Elliot [...] Primary Care Provider Alfreda Miller Attending Unavailable Jean Pierre MARTE Admitting Unavailable Jean Pierre MARTE Attending Unavailable Maria E Osman Attending Unavailable Alfreda Miller Referring Unavailable Maria E Osman Attending Unavailable Alfreda Miller Referring Unavailable Alfreda Miller Admitting Unavailable Alfreda Miller Attending Unavailable RADHA MART Attending Unavailable RAUDEL ELLIOT E Referring Unavailable STARKS, ELLIOT E Primary Care Unavailable BIALECKI, DIVINE Referring Unavailable STARKS, ELLIOT E Primary Care Unavailable ROSANGELA MONTAGUE Referring Unavailable RAUDEL ELLIOT E Primary Care Unavailable Elliot Starks MD Primary Care Provider [phone] Elliot Starks MD Attending Provider [phone] Agusto VILLEGAS, Daisy Dietz Attending Unavailable Agusto VILLEGAS, Andrius Vaudrey Attending Unavailable Agusto VILLEGAS, Andrius Vaudrey Attending Unavailable Agusto VILLEGAS, Andrius J Luis Attending Unavailable RAUDEL ELLIOT E Primary Care Unavailable GOVIND SNOW Attending Unavailable Elliot Starks MD Primary Care Provider [phone] RADHA ESPINAL Attending Unavailable Allergies Allergy Classification Reported Allergen(s) Allergy Type Date of Onset Reaction(s) Facility (20 sources) Acetaminophen / HYDROcodone; Translations: [HYDROCODONE-ACET AMINOPHEN] Drug Allergy 03-19-20 17 Unknown, Itching, Nausea Only, Rash [facility] (20 sources) Baclofen; Translations: [baclofen] Drug Allergy 03-19-20 17 Unknown, Itching, Rash [facility] (20 sources) Codeine; Translations: [codeine] Drug Allergy 08-09-19 09 Unknown, Itching, Rash [facility] (20 sources) levoFLOXacin; Translations: [levofloxacin] Drug Allergy 03-19-20 17 Unknown, Itching, Nausea Only, Rash [facility] (20 sources) Morphine; Translations: [morphine] Drug Allergy 08-09-19 09 [facility] (17 sources) oxyCODONE; Translations: [OXYCODONE] Drug Allergy 12-03-19 16 [facility] (12 sources) Penicillins; Translations: [PENICILLINS] Drug Allergy 12-03-19 16 Hives, Rash [facility] (1 source) Baclofen Drug Allergy [facility] (1 source) Codeine Drug Allergy [facility] (17 sources) levoFLOXacin; Translations: [Levaquin] Drug Allergy Unknown [facility] (1 source) Morphine Drug Allergy 05-04-18 94 [facility] (1 source) oxyCODONE Drug Allergy 05-04-19 05 [facility] (1 source) Penicillins Drug allergy (disorder) 05-04-18 93 [facility] (6 sources) traMADol; Translations: [Ultram] Drug Allergy [facility] (11 sources) Codeine Drug Allergy Unknown [facility] Other (20 sources) Penicillin; Translations: [penicillin] Drug Allergy Unknown [facility] (20 sources) traMADol; Translations: [tramadol] Drug Allergy 07-13-19 20 Itching, Rash [facility] (20 sources) zolpidem; Translations: [zolpidem] Drug Allergy 07-04-19 23 Unknown, Hives [facility] (11 sources) Penicillins Drug Allergy 12-03-19 16 Hives, Rash [facility] (1 source) Non-steroidal anti-inflammatory agent Drug allergy 02-02-20 13 Unknown [facility] Other (20 sources) sulfADIAZINE; Translations: [SULFADIAZINE] Drug Allergy 07-04-19 23 Comment:Sulfa [facility] (1 source) Ultram *ANALGESICS - OPIOID* Propensity to adverse reactions Unknown [facility] Other (1 source) Vioxx *ANALGESICS - ANTI-INFLAMMATORY * Propensity to adverse reactions Unknown [facility] Other (1 source) Penicillin G Benzathine & Proc Drug allergy Unknown [facility] Other (1 source) Morphine Sulfate (Concentrate) *ANALGESICS - OPIOI Propensity to adverse reactions Unknown PLASTIQ [facility] Other (1 source) Allergies Reconciled Propensity to adverse reactions Unknown [facility] Other (1 source) patient allergy list reviewed by nurse or physicia Propensity to adverse reactions 02-02-20 Comment:Done [facility] Other (1 source) Vicodin *ANALGESICS - OPIOID* Propensity to adverse reactions Unknown [facility] Other (6 sources) calcitonin Drug allergy 10-28-19 24 Unknown, [facility] (15 sources) Penicillins Propensity to adverse reactions to drug 09-13-19 23 Unknown [facility] (1 source) Acetaminophen / HYDROcodone; Translations: [Vicodin] Drug Allergy [facility] (1 source) Adhesive Tape; Translations: [Tape] Propensity to adverse reactions (disorder) [facility] (10 sources) Latex Propensity to adverse reactions to drug 06-19-19 24 [facility] (10 sources) *Adhesive Tape Propensity to adverse reactions 07-04-19 23 [facility] (8 sources) Cephalexin Drug Allergy 07-09-19 24 Nausea Only, Dry Mouth, Flushing [facility] (5 sources) Acetaminophen Drug Allergy 10-28-19 24 [facility] (5 sources) HYDROcodone Drug Allergy 10-28-19 24 [facility] (5 sources) Penicillin G Benzathine Allergy to substance 10-28-19 24 [facility] (20 sources) rofecoxib; Translations: [ROFECOXIB] Drug Allergy 07-04-19 [facility] (19 sources) Adhesive agent; Translations: [ADHESIVE] Propensity to adverse reactions to drug 07-04-19 [facility] (20 sources) penicillin G benzathine / penicillin G procaine; Translations: [PENICILLIN G BENZATHIN,PROCAIN ] Drug Allergy 07-04-19 [facility] (4 sources) Morphine; Translations: [Morphine Sulfate] Drug Allergy [facility] (4 sources) zolpidem; Translations: [Ambien] Drug Allergy [facility] (7 sources) Penicillins Propensity to adverse reactions to drug 12-03-19 Rash, [facility] (3 sources) Baclofen Drug Allergy 09-13-19 [facility] (1 source) Adhesive agent Propensity to adverse reactions to drug 07-04-19 [facility] Medications Current Medications Medication Drug [...] 30, 2024 11:34am Start: 08-31-2017 End: 11-16-2024 ELIQUIS 5 mg tablet Indicati ons: Paroxysmal atrial fibrillation (CMS-HCC) TAKE 1 TABLET TWICE A DAY (NEED ALL ANNUAL LABS DRAWN FOR FURTHER REFILLS, 08/10/24) 180 tablet 3 11/16/2024 Active take 2 tablets by mo uth every twelve hours apixaban 2.5 MG tablet Take 2 tablets by mouth every 12 hours. Active apixaban 2.5 MG tablet Take by mouth every 12 hours. 0 Active Comment on above: Take 5 mg by mouth t wice daily. ascorbic acid 226 mg / beta carotene [id number] unt / cuprous oxide 0.8 mg / dl-alpha tocopheryl acetate 200 unt / zinc oxide 34.8 mg oral capsule (13 sources) Vitamin C Start: 10-28-2023 take 1 capsule by mouth in the morning vitamins A,C,Q-uehq-pjagew (ICAPS AREDS) 4,296 mcg-226 mg-90 mg capsule Take 1 capsule by mouth in the morning and 1 capsule before bedtime. 10/28/2023 Active Start: 10-28-2023 take 1 capsule by mouth twice daily atenolol 50 mg oral tablet (20 sources) beta-Adrenergic Philip Start: 2023 End: 2023 take 75 mg by mouth once daily 75 mg, Oral, DAILY, First dose on Thu07/08/23 at 0900, Until Discontinued Start: 06-24-2023 End: 12-27-2024 atenoloL (TENORMIN) 50 mg ta blet TAKE ONE AND ONE-HALF TABLETS IN THE MORNING 135 tablet 3 12/27/2024 Active Start: 09-10-2022 End: 07-06-2024 take 1.5 tablets by mouth in the morning atenoloL (TENORMIN) 50 mg tablet Take 1.5 tablets (75 mg total) by mouth in the morning. 135 tablet 3 07/24/2023 07/06/2024 Discontinued Start: 04-11-2009 atenolol (Teno rmin) 50 MG tablet Take 25 mg by mouth Daily 04/11/2009 Active Start: 04-11-2009 atenolol (TENO RMIN) 50 mg tablet 25 [...] procedure. 2 tablet 1 07/23/2023 07/22/2024 Active clindamycin 300 mg oral capsule (3 sources) Lincosamide Antibacterial Start: 01-03-2022 clindamycin (Cleocin) 300 MG capsule every 8 (eight) hours 01/03/2022 Active cyclobenzaprine hydrochloride 10 mg oral tablet [...] 1 month, then 2x a week afterwards, [facility]/pharmacy #[id number], 165, cm, 06/22/24 13:05:00 EST, Height/Length [...] x 1 month, then 2x/week for maintainence, [facility]/pharmacy #[id number], 165, cm, 02/11/23 10:41:00 EDT, Height/Length Dosing, 77.5, kg, 02/11/23 10:41:00 EDT, Weight Dosing 02/11/2023 Active Start: 02-11-2023 Estrace 0.1 mg /g Cream See Instructions, 42.5 gm, Refill(s) 3, apply pea size amount to urethra/inner vagina 3x/week x 1 month, then 2x/week for maintainence, [facility]/pharmacy #[id number], 165, cm, 02/11/23 10:41:00 EDT, Height/Length [...] (4 sources) Thiazide Diuretic, Angiotensin 2 Receptor Philip Start: 2018 losartan-hydrochlorothiaz rudolph (HYZAAR) 100-25 mg [...] by mouth. melatonin 10 mg oral tablet (4 sources) Start: 02-11-2023 take 1 mg by mouth once daily at bedtime melatonin 10 mg oral tablet mg tab(s), Oral, Once a day (at bedtime), Refills(s) 0 Start Date: 02/11/23 Status: Ordered Melatonin 10 MG capsule Active meperidine hydrochloride 50 mg oral tablet (4 [...] 30 tab(s), Refills(s) 11, Pharmacy: [facility]/pharmacy #[id number], 165, cm, 02/11/23 10:41:00 EDT, Height/Length Dosing, 77.5, kg, 02/11/23 10:41:00 EDT, Weight Dosing Start Date: 02/11/23 Status: Ordered Multiple Vitamin (MULTIVITAMIN ADULT PO) (3 sources) Multiple Vitamin (MULTIVITAMIN ADULT PO) Active Multiple Vitamin (MULTIVITAMIN ADULT PO) Multivitamin Active Multiple Vitamin (multivitamin) capsule (8 sources) take [...] for 7 days Jun, Active NON FORMULARY (19 sources) NON FORMULARY Me d Name:Neuveria vitamin [...] by mouth in the morning. Active take 1 tablet by mirza th before mealtime omeprazole OTC (PriLOSEC OTC) 20 MG EC tablet Take 20 mg by mouth in the morning. Take before meals. Active take 20 mg by mouth once [...] DAILY Active take 1 capsule by mo ut once daily Omeprazole 40 MG 1 capsule 30 minutes before morning meal Orally Once a day Active Comment on above: Take 20 mg by mouth twice daily. 24 hr oxybutynin chloride 5 mg extended release oral tablet (11 sources) Cholinergic Muscarinic Antagonist Start: 06-06-2022 take 1 tablet by mouth every twenty-four hours Ditropan XL 5 MG 1 tablet Orally Once a day for 90 days Jun, Active take 1 tablet by mirza th every twenty-four hours in the morning oxybutynin XL (Ditropan-XL) 5 MG 24 hr tablet Take 5 mg by mouth in the morning. Do not crush, chew, or split. . Active potassium chloride 10 meq extended release oral tablet (20 sources) Start: 06-22-2024 Potassium Chlo ride (Dzb-Dwuk-Sxi 10) 10 mEq oral tablet, extended release 10 mEq = 1 tab(s), Refills(s) 0 Start Date: 06/22/24 Status: Ordered Repeat number: 1 Start: 06-22-2024 Potassium Chlo ride (Ecz-Syci-Uiv 10) 10 mEq oral tablet, extended release 10 mEq = 1 tab(s), Refills(s) 0 Start Date: 06/22/24 Status: Ordered Start: 10-26-2023 End: 11-29-2024 potassium chloride (K-TAB,KL OR-CON) 10 MEQ CR tablet TAKE 1 TABLET IN THE MORNING 90 tablet 3 11/29/2024 Active Start: 03-31-2022 End: 10-19-2023 10 mEq, Oral, DAILY, First d ose on Thu07/08/23 at 0900, Until Discontinued potassium chlori de CR (Klor-Con M10) 10 MEQ ER tablet Take 10 mEq by mouth Daily Do not crush or chew. Active take 1 tablet by mirza th [...] 2023 2:33pm Trospium Chlorid e Active Vitamins A,C,W-Raxc-Btanlp (Preservision Areds) 4,296 mcg-226 mg-90 mg capsule (4 sources) Start: 10-28-2023 take 1 capsule by mouth twice daily Vitamins A,C,A-Kuwk-Rimnrw (Preservision Areds) 4,296 mcg-226 mg-90 mg capsule Active 1 CAP PO Twice daily October 27, 2023 11:00pm Start: 10-28-2023 take 1 capsule by [facility] twice daily Vitamins A,C,G-Zhev-Kbxyhp (Preservision Areds) 4,296 mcg-226 mg-90 mg capsule [...] Post-op/Post-Proc Start: 07-07-2023 take 2 tablets by [facility] every four hours as needed Acetaminophen 325 [...] Post-op/Post-Proc docusate sodium 50 mg / sennosides, group home 8.6 mg oral tablet (1 source) Start: 07-07-2023 End: 2023 take 2 tablets by mouth twice daily as needed for constipation 2 tablet, Oral, 2 TIMES DAILY NEEDED, Starting on Thu07/07/23 at 1637, Until Thu07/08/23 at 1920, constipation, Post-op/Post-Proc ferrous sulfate 325 mg oral tablet (5 sources) Start: 11-22-2021 End: 06-02-2023 take 1 [...] 01, 2024 11:46am February 15, 2024 9:27am temazepam (Cecilia ril) 22.5 MG capsule Take 30 mg by mouth as needed at bedtime for sleep Active take 2 capsules by m outh at [...] mention of obstruction or gangrene] Episodic Acute and unspecified renal failure (1 source) Acute kidney failure, unspecified; Translations: [ACE (acute kidney injury)] Onset: 12-18-2024 Episodic Acute bronchitis (1 source) Acute bronchitis [...] Onset: 10-06-2017 Chronic Fluid and electrolyte disorders (6 sources) Dehydration; Translations: [Hypokalemia] Onset: 06-11-2022 Episodic [...] including migraine; Translations: [HEADACHE UNSPECIFIED] Onset: 06-09-2022 Joint disorders and dislocations; trauma-related (3 sources) Derangement of left knee; Translations: [Unspecified internal derangement of left knee] Onset: 09-12-2022 09-12-2022 Chronic Malaise and fatigue (13 sources) Other fatigue; Translations: [Fatigue] Onset: 06-11-2022 Episodic Menopausal disorders (1 source) Atrophic vaginitis; Translations: [Postmenopausal atrophic vaginitis] Onset: 09-19-2024 Chronic Osteoarthritis (15 sources) Unspecified osteoarthritis, unspecified site; Translations: [Localized, primary osteoarthritis of the pelvic region and thigh] Onset: 06-11-2022 05-06-2023 Chronic Other aftercare (1 source) Other continuous churn buttermaker (current) drug therapy; Translations: [OTH HALF-WAY CURRENT DRUG THERAPY] Onset: 06-11-2022 Episodic Other aftercare (3 sources) Long-term current use of anticoagulant; Translations: [long term (current) use of anticoagulants] Onset: 02-11-2023 Episodic Other bone disease and musculoskeletal deformities (12 sources) Other specified disorders of bone, shoulder; Translations: [Pain of right scapula] Episodic Other connective tissue disease (13 sources) History of repair of hip joint; Translations: [Presence of unspecified artificial hip joint] Onset: 09-12-2022 2023 Chronic Other connective tissue disease (2 [...] Episodic Other nervous system disorders (3 sources) Chronic pain; Translations: [Other chronic pain] Onset: 09-12-2022 09-12-2022 Chronic Other nervous system disorders (6 sources) Hip pain; Translations: [Other acute postprocedural pain] 07-07-2023 Episodic Other non-traumatic joint disorders (3 sources) Derangement of right shoulder joint; Translations: [Other specific joint derangements of right shoulder, not elsewhere classified] Onset: 09-12-2022 09-12-2022 Chronic Other non-traumatic joint disorders (10 sources) Arthralgia of the pelvic region and thigh; Translations: [Pain in right hip] Episodic Other non-traumatic joint disorders (3 sources) Pain in right hip joint; Translations: [Pain in right hip] 06-23-2023 Episodic Other skin disorders (1 source) Dyshidrosis [pompholyx] Episodic Other skin disorders (2 sources) Inflamed seborrheic keratosis; Translations: [Inflamed seborrheic keratosis] 12-27-2024 Episodic Other skin disorders (2 sources) Skin tag; Translations: [Other hypertrophic disorders of the skin] 12-27-2024 Episodic Other skin disorders (2 sources) Milia; Translations: [Epidermal cyst] 12-27-2024 Episodic Other upper respiratory infections (14 sources) [...] Spondylosis; intervertebral disc disorders; other back problems (3 sources) Degeneration of lumbosacral intervertebral disc; Translations: [DDD (degenerative disc disease), lumbosacral] Onset: 09-12-2022 09-12-2022 Chronic Superficial injury; contusion (1 source) Abrasion of left ear, initial encounter; Translations: [ABRASION LEFT EAR INITIAL ENCOUNTER] Onset: 04-29-2022 Episodic Syncope (1 source) Syncope and collapse; Translations: [Near syncope] Onset: 08-17-2025 Episodic Unclassified (1 source) CONTACT W/AND (SUSP) [...] Coronary arteriosclerosis; Translations: [Atherosclerotic heart disease of [place] coronary artery without angina pectoris] Onset: 07-29-2021 Resolved: 08-16-2021 06-02-2023 Chronic Gastroduodenal ulcer (except hemorrhage) (2 sources) Personal history of peptic ulcer disease; Translations: [Acute gastric ulcer without hemorrhage, without perforation AND without obstruction] Onset: 05-11-2017 Episodic Mood disorders (19 sources) Mood disorders Onset: 04-24-2020 04-24-2020 Other [...] 08-16-2021 05-12-2018 Episodic Other nervous system disorders (3 sources) Antalgic gait; Translations: [Other abnormalities of gait and mobility] Onset: 09-12-2022 09-12-2022 Episodic Other non-traumatic joint disorders (3 sources) [...] Translations: [Pneumonia, unspecified organism] Onset: 12-11-2016 Episodic Spondylosis; intervertebral disc disorders; other back problems (16 sources) Low back pain; Translations: [Lumbar back pain] Onset: 07-04-2013 09-12-2022 Episodic Sprains and strains (4 sources) Tendon rupture - hip; Translations: [Strain of muscle, fascia and tendon of right hip, initial encounter] Onset: 07-23-2023 07-07-2023 Episodic Unclassified (6 sources) Lumbar back pain; Translations: [Lumbar back pain] Unclassified (1 source) Right lumbar pain M54.50 Unclassified (1 source) History of total replacement of right hip joint 07-15-2024 Results Test Name Value Interpretation Reference Range Facility No Panel Informationon 12-27 [facility] Bacteria Ur Culton Bacteria identified Cx Nom (U) CULTURE, URINE: Mixed microbiota, including predominantly: ORGANISM ID: 1 >=100,000 CFU/ml Escherichia coli ORGANISM ID: 1 (ESCHERICHIA COLI) -- ANTIBIOTIC INTERPRETATION AUBREY STATUS REFERENCE RANGE -- Ampicillin R >=32 F Susceptible <=8 , Intermediate >8 , Resistant >16 Cefazolin S <=4 F Susceptible 0-16 , Intermediate <0 or >16 , Resistant >16 For uncomplicated urinary tract infections, cefazolin results can be used to predict susceptibility or resistance to cephalexin. Ceftriaxone S <=1 F Susceptible <=1 , Intermediate >1 , Resistant >=4 Cefepime S <=1 F Susceptible <=2 , Susceptible-Dose Dependent >2 , Resistant >=16 Ertapenem S <=0.5 F Susceptible <=0.5 , Intermediate >.5 , Resistant >1 Meropenem S <=0.25 F Susceptible <=1 , Intermediate >1 , Resistant >2 Ampicillin/Sulbact I 16 F Susceptible <=8 , Intermediate >8 , Resistant >16 Piperacillin/Tazobac S <=4 F Susceptible <16 , Susceptible-Dose Dependent >=16 , Resistant >=32 Gentamicin R >=16 F Susceptible <=2 , Intermediate >2 , Resistant >=8 Tobramycin I 4 F Susceptible <4 , Intermediate >=4 , Resistant >=8 Amikacin S <=2 F Susceptible <8 , Intermediate >=8 , Resistant >=16 Trimeth sulfameth R >=320 F Susceptible <=40 , Resistant >40 Ciprofloxacin S <=0.25 F Susceptible <0.5 , Intermediate >=.5 , Resistant >=1 Nitrofurantoin S <=16 F Susceptible <=32 , Intermediate >32 , Resistant >64 Abnormal [facility] Comment on above: Performed By: #### 2 4356-8 #### [facility] CLIA [id number] [facility] [place], [place] [address] [place] [address] [place] #### 630-4 #### [facility] CLIA [id number] [address] [place] [address] STATES OF [facility] ED NOTEon 12-19-2024 ED NOTE HNO ID: [id number] Author: ADAM PORTILLO RN Service: ? Author Type: Registered Nurse Type: ED Notes Filed: 12/19/2024 01:18 Note Text: Patient discharged per MD orders. Discharge instructions reviewed. Pt encouraged to return to ED if worsening signs or symptoms occur. Prescriptions called into pharmacy of choice. Follow up care discussed. Pt left ED in stable condition. Normal [facility] HIGH SENSITIVITY TROPONIN T (THIRD) 3 HRS AFTER INITIALon 12-19-2024 Troponin T.cardiac High sensitivity method [Mass/Vol] 13 ng/L High <12 [facility] Comment on above: Order Comment: Speci men Type: BLOOD SPECIMENOrdering Facility: [facility] Address: [address] [place] [address] Performed By: #### 2 4356-8 #### [facility] CLIA [id number] [address] [place] [address] STATES OF [facility] #### 630-4 #### [facility] CLIA [id number] [address] [place] [address] [place] Urinalysis complete panel (U )on 12-19-2024 Bacteria LM.HPF (Urine sed) [#/Area] Rare Abnormal None Seen [facility] Comment on above: Order Comment: Speci men Type: URINE SPECIMEN Ordering Facility: [facility] Address: [address] [place] [address] Performed By: #### 2 4356-8 #### [facility] CLIA [id number] [address] [place] [address] [place] #### 630-4 #### [facility] CLIA [id number] [address] [place] [address] [place] Bilirubin Ql (U) Negative Normal Negative [facility] Comment on above: Order Comment: Speci men Type: URINE SPECIMEN Ordering Facility: [facility] Address: [address] [place] [address] Performed By: #### 2 4356-8 #### [facility] CLIA [id number] [address] [place] [address] [place] #### 630-4 #### [facility] CLIA [id number] [address] [place] [address] [place] Clarity (Unsp spec) Turbid Abnormal Clear [facility] Comment on above: Order Comment: Speci men Type: URINE SPECIMEN Ordering Facility: [facility] Address: [address] [place] [address] Performed By: #### 2 4356-8 #### [facility] [place] [id number] [address] [place] [address] [place] #### 630-4 #### [facility] CLIA [id number] [address] [place] [address] [place] Color (U) Light Yellow Normal yellow [facility] Comment on above: Order Comment: Speci men Type: URINE SPECIMEN Ordering Facility: [facility] Address: [address] [place] [address] Performed By: #### 2 4356-8 #### [facility] [place] [id number] [address] [place] [address] [place] #### 630-4 #### [facility] CLIA [id number] [address] [place] [address] [place] Epithelial cells LM.HPF (Urine sed) [#/Area] Few Normal [facility] Comment on above: Order Comment: Speci men Type: URINE SPECIMEN Ordering Facility: [facility] Address: [address] [place] [address] Performed By: #### 2 4356-8 #### [facility] CLIA [id number] [address] [place] [address] [place] #### 630-4 #### [facility] CLIA [id number] [address] [place] [address] [place] Glucose Test strip (U) [Mass/Vol] Negative Normal Trace, Negative [facility] Comment on above: Order Comment: Speci men Type: URINE SPECIMEN Ordering Facility: [facility] Address: [address] [place] [address] Performed By: #### 2 4356-8 #### [facility] CLIA [id number] [address] [place] [address] [place] #### 630-4 #### [facility] CLIA [id number] [address] [place] [address] [place] Hemoglobin Ql (U) Trace Normal Negative, Trace [facility] Comment on above: Order Comment: Speci men Type: URINE SPECIMEN Ordering Facility: [facility] Address: [address] [place] [address] Performed By: #### 2 4356-8 #### [facility] IA [id number] [address] [place] [address] [place] #### 630-4 #### [facility] CLIA [id number] [address] [place] [address] [place] Hyaline casts (Urine sed) [#/Area] 1-3 /LPF Abnormal 0 /LPF [facility] Comment on above: Order Comment: Speci men Type: URINE SPECIMEN Ordering Facility: [facility] Address: [address] [place] [address] Performed By: #### 2 4356-8 #### [facility] CLIA [id number] [address] [place] [address] [place] #### 630-4 #### [facility] CLIA [id number] [address] [place] [address] [place] Ketones Ql (U) Negative Normal Negative, Trace [facility] Comment on above: Order Comment: Speci men Type: URINE SPECIMEN Ordering Facility: [facility] Address: [address] [place] [address] Performed By: #### 2 4356-8 #### [facility] CLIA [id number] [address] [place] [address] [place] #### 630-4 #### [facility] CLIA [id number] [address] [place] [address] [place] Leukocyte esterase Test strip Ql (U) 500 Felipe/uL Abnormal Negative, 25 Felipe/uL [facility] Comment on above: Order Comment: Speci men Type: URINE SPECIMEN Ordering Facility: [facility] Address: [address] [place] [address] Performed By: #### 2 4356-8 #### [facility] CLIA [id number] [address] [place] [address] [place] #### 630-4 #### [facility] CLIA [id number] [address] [place] [address] [place] Nitrite Ql (U) 2+ Abnormal Negative [facility] Comment on above: Order Comment: Speci men Type: URINE SPECIMEN Ordering Facility: [facility] Address: [address] [place] [address] Performed By: #### 2 4356-8 #### [facility] IA [id number] [address] [place] [address] [place] #### 630-4 #### [facility] CLIA [id number] [address] [place] [address] [place] pH (U) 6.0 [pH] Normal 5.0-8.0 [facility] Comment on above: Order Comment: Speci men Type: URINE SPECIMEN Ordering Facility: [facility] Address: [address] [place] [address] Performed By: #### 2 4356-8 #### [facility] CLIA [id number] [address] [place] [address] [place] #### 630-4 #### [facility] CLIA [id number] [address] [place] [address] [place] Protein (U) [Mass/Vol] Negative Normal Trace, Negative [facility] Comment on above: Order Comment: Speci men Type: URINE SPECIMEN Ordering Facility: [facility] Address: [address] [place] [address] Performed By: #### 2 4356-8 #### [facility] CLIA [id number] [address] [place] [address] [place] #### 630-4 #### [facility] CLIA [id number] [address] [place] [address] [place] RBC LM.HPF (Urine sed) [#/Area] 6-10 /HPF Abnormal 0-3 /HPF [facility] Comment on above: Order Comment: Speci men Type: URINE SPECIMEN Ordering Facility: [facility] Address: [address] [place] [address] Performed By: #### 2 4356-8 #### [facility] IA [id number] [address] [place] [address] [place] #### 630-4 #### [facility] CLIA [id number] [address] [place] [address] [place] Specific gravity (U) [Rel density] 1.028 Normal 1.005-1.030 [facility] Comment on above: Order Comment: Speci men Type: URINE SPECIMEN Ordering Facility: [facility] Address: [address] [place] [address] Performed By: #### 2 4356-8 #### [facility] IA [id number] [address] [place] [address] [place] #### 630-4 #### [facility] CLIA [id number] [address] [place] [address] [place] Urobilinogen Ql (U) Normal Normal Normal [facility] Comment on above: Order Comment: Speci men Type: URINE SPECIMEN Ordering Facility: [facility] Address: [address] [place] [address] Performed By: #### 2 4356-8 #### [facility] CLIA [id number] [place] #### 630-4 #### [facility] CLIA [id number] [address] [place] [address] [place] WBC LM.HPF (Urine sed) [#/Area] /[HPF] Abnormal 0-5 /HPF [facility] Comment on above: Order Comment: Speci men Type: URINE SPECIMEN Ordering Facility: [facility] Address: [address] [place] [address] Performed By: #### 2 4356-8 #### [facility] CLIA [id number] [address] [place] #### 630-4 #### [facility] CLIA [id number] [address] [place] [address] [place] ALLIED HEALTHon 12-18-2024 ALLIED HEALTH HNO ID: [id number] Author: VAN WAHL Tech Service: Radiology Author Type: Insurance Business Analyst Type: Allied Health Filed: 12/18/2024 22:22 Note Text: Radiology Service Progress Note PATIENT NAME: Bettie Burns DATE OF SERVICE: December 18, 2024 TIME: 9:44 PM PATIENT IDENTITY VERIFICATION COMPLETED USING TWO (2) IDENTIFIERS: Name and Date of confirmed by patient verbally and Name and Date of confirmed by identification band. FALL SCREENING: Has the patient had 2 falls in the last year or 1 fall with injury or currently using an Ambulatory Assistive Device (Walker, Cane, Wheelchair, Crutches, etc.)? Emergency Room Patient: Screened in ED PATIENT GENDER DATA: Assigned female at . status: : No status: NO. PATIENT RELEVANT IMPLANT DATA REVIEWED: Not Applicable PATIENT PRESENTS WITH AN IMPLANTABLE OR ATTACHED EMERGENCY ROOM PHYSICIAN ASSISTANT: No RADIOLOGY DEPARTMENT: CT; Exam(s) Completed: Brain and PE Study PERIPHERAL IV DATA: Inpatient: see LDA documentation SIGNED BY: Cherrie Martin December 18, 2024 9:44 PM Normal [facility] CBC W Auto Differential pane l (Bld)on 12-18-2024 Basophils (Bld) [#/Vol] 0.09 10*3/uL Normal <0.11 [facility] Comment on above: Order Comment: Speci men Type: BLOOD SPECIMEN Ordering Facility: [facility] Address: [address] [place] [address] Performed By: #### 5 7021-8 #### [facility] CLIA [id number] [address] [place] [address] [place] Basophils/100 WBC (Bld) 1.2 % Normal [facility] Comment on above: Order Comment: Speci men Type: BLOOD SPECIMEN Ordering Facility: [facility] Address: [address] [place] [address] Performed By: #### 5 7021-8 #### [facility] CLIA [id number] [address] [place] [address] [place] Differential cell count method Nom (Bld) Auto Normal [facility] Comment on above: Order Comment: Speci men Type: BLOOD SPECIMEN Ordering Facility: [facility] Address: [address] [place] [address] Performed By: #### 5 7021-8 #### [facility] CLIA [id number] [address] [place] [address] [place] Eosinophils (Bld) [#/Vol] 0.34 10*3/uL Normal <0.46 [facility] Comment on above: Order Comment: Speci men Type: BLOOD SPECIMEN Ordering Facility: [facility] Address: [address] [place] [address] Performed By: #### 5 7021-8 #### [facility] CLIA [id number] [address] [place] [address] [place] Eosinophils/100 WBC (Bld) 4.6 % Normal [facility] Comment on above: Order Comment: Speci men Type: BLOOD SPECIMEN Ordering Facility: [facility] Address: [address] [place] [address] Performed By: #### 5 7021-8 #### [facility] IA [id number] [address] [place] [address] [place] Erythrocyte distribution width (RBC) [Ratio] 11.9 % Normal 11.5-15.0 [facility] Comment on above: Order Comment: Speci men Type: BLOOD SPECIMEN Ordering Facility: [facility] Address: [address] [place] [address] Performed By: #### 5 7021-8 #### [facility] IA [id number] [address] [place] [address] [place] Hematocrit (Bld) [Volume fraction] 36.9 % Normal 36.0-46.0 [facility] Comment on above: Order Comment: Speci men Type: BLOOD SPECIMEN Ordering Facility: [facility] Address: [address] [place] [address] Performed By: #### 5 7021-8 #### [facility] IA [id number] [address] [place] [address] [place] Hemoglobin (Bld) [Mass/Vol] 12.3 g/dL Normal 11.5-15.5 [facility] Comment on above: Order Comment: Speci men Type: BLOOD SPECIMEN Ordering Facility: [facility] Address: [address] [place] [address] Performed By: #### 5 7021-8 #### [facility] IA [id number] [address] [place] [address] [place] Immature granulocytes (Bld) [#/Vol] 10*3/uL Normal <0.10 [facility] Comment on above: Order Comment: Speci men Type: BLOOD SPECIMEN Ordering Facility: [facility] Address: [address] [place] [address] Performed By: #### 5 7021-8 #### [facility] IA [id number] [address] [place] [address] [place] Immature granulocytes/100 WBC (Bld) 0.1 % Normal [facility] Comment on above: Order Comment: Speci men Type: BLOOD SPECIMEN Ordering Facility: [facility] Address: [address] [place] [address] Performed By: #### 5 7021-8 #### [facility] CLIA [id number] [address] [place] [address] [place] Lymphocytes (Bld) [#/Vol] 3.86 10*3/uL Normal 1.00-4.00 [facility] Comment on above: Order Comment: Speci men Type: BLOOD SPECIMEN Ordering Facility: [facility] Address: [address] [place] [address] Performed By: #### 5 7021-8 #### [facility] IA [id number] [address] [place] Lymphocytes/100 WBC (Bld) 51.7 % Normal [facility] Comment on above: Order Comment: Speci men Type: BLOOD SPECIMEN Ordering Facility: [facility] Address: [address] [place] [address] Performed By: #### 5 7021-8 #### [facility] CLIA [id number] [address] [place] [address] [place] MCH (RBC) [Entitic mass] 32.5 pg Normal 26.0-34.0 [facility] Comment on above: Order Comment: Speci men Type: BLOOD SPECIMEN Ordering Facility: [facility] Address: [address] [place] [address] Performed By: #### 5 7021-8 #### [facility] CLIA [id number] [address] [place] [address] [place] MCHC (RBC) [Mass/Vol] 33.3 g/dL Normal 30.5-36.0 [facility] Comment on above: Order Comment: Speci men Type: BLOOD SPECIMEN Ordering Facility: [facility] Address: [address] [place] [address] Performed By: #### 5 7021-8 #### [facility] CLIA [id number] [address] [place] [address] [place] MCV (RBC) [Entitic vol] 97.4 fL Normal 80.0-100.0 [facility] Comment on above: Order Comment: Speci men Type: BLOOD SPECIMEN Ordering Facility: [facility] Address: [address] [place] [address] Performed By: #### 5 7021-8 #### [facility] CLIA [id number] [address] [place] [address] [place] Monocytes (Bld) [#/Vol] 0.70 10*3/uL Normal <0.87 [facility] Comment on above: Order Comment: Speci men Type: BLOOD SPECIMEN Ordering Facility: [facility] Address: [address] [place] [address] Performed By: #### 5 7021-8 #### [facility] IA [id number] [address] [place] [id number] [place] Monocytes/100 WBC (Bld) 9.4 % Normal [facility] Comment on above: Order Comment: Speci men Type: BLOOD SPECIMEN Ordering Facility: [facility] Address: [address] [place] [address] Performed By: #### 5 7021-8 #### [facility] IA [id number] [address] [place] [id number] [place] Neutrophils (Bld) [#/Vol] 2.47 10*3/uL Normal 1.45-7.50 [facility] Comment on above: Order Comment: Speci men Type: BLOOD SPECIMEN Ordering Facility: [facility] Address: [address] [place] [address] Performed By: #### 5 7021-8 #### [facility] IA [id number] [address] [place] [id number] [place] Neutrophils/100 WBC (Bld) 33.0 % Normal [facility] Comment on above: Order Comment: Speci men Type: BLOOD SPECIMEN Ordering Facility: [facility] Address: [address] [place] [address] Performed By: #### 5 7021-8 #### [facility] CLIA [id number] [address] [place] [address] [place] Nucleated RBC (Bld) [#/Vol] 10*3/uL Normal <0.01 [facility] Comment on above: Order Comment: Speci men Type: BLOOD SPECIMEN Ordering Facility: [facility] Address: [address] [place] [address] Performed By: #### 5 7021-8 #### [facility] IA [id number] [address] [place] [address] [place] Nucleated RBC/100 WBC (Bld) [Ratio] 0.0 /100 WBC Normal [facility] Comment on above: Order Comment: Speci men Type: BLOOD SPECIMEN Ordering Facility: [facility] Address: [address] [place] [address] Performed By: #### 5 7021-8 #### [facility] IA [id number] [address] [place] [address] [place] Platelet mean volume (Bld) [Entitic vol] 8.7 fL Low 9.0-12.7 [facility] Comment on above: Order Comment: Speci men Type: BLOOD SPECIMEN Ordering Facility: [facility] Address: [address] [place] [address] Performed By: #### 5 7021-8 #### [facility] IA [id number] [address] [place] [address] [place] Platelets (Bld) [#/Vol] 209 10*3/uL Normal 150-400 [facility] Comment on above: Order Comment: Speci men Type: BLOOD SPECIMEN Ordering Facility: [facility] Address: [address] [place] [address] Performed By: #### 5 7021-8 #### [facility] IA [id number] [address] [place] [address] [place] RBC (Bld) [#/Vol] 3.79 10*6/uL Low 3.90-5.20 [facility] Comment on above: Order Comment: Speci men Type: BLOOD SPECIMEN Ordering Facility: [facility] Address: [address] [place], [place] [address] Performed By: #### 5 7021-8 #### [facility] CLIA [id number] [address] [place] [address] [place] WBC (Bld) [#/Vol] 7.47 10*3/uL Normal 3.70-11.00 [facility] Comment on above: Order Comment: Speci men Type: BLOOD SPECIMEN Ordering Facility: [facility] Address: [address] [place] [address] Performed By: #### 5 7021-8 #### [facility] CLIA [id number] [address] [place] [id number] [place] CK SerPl-cCncon 12-18-2024 CK [Catalytic activity/Vol] 37 U/L Low 42-196 [facility] Comment on above: Order Comment: Speci men Type: BLOOD SPECIMEN Ordering Facility: [facility] Address: [address] [place] [address] Performed By: #### 2 157-6, 79419-7, 3040-3, 97739-4 #### [facility] CLIA [id number] [address] [place] [id number] [place] CT BRAIN WO IVCONon 12-19-[address] BRAIN WO IVCON * * *Final Report* * * DATE OF EXAM: Dec 18 2024 10:24PM [facility] 0504 - CT BRAIN WO IVCON / PROCEDURE REASON: dizziness * * * * Physician Interpretation * * * * EXAMINATION: CT BRAIN WO IVCON CLINICAL HISTORY: dizziness. TECHNIQUE: Routine CT of the brain without IV contrast. CT Dose-Length Product (DLP): 778 mGy*cm CT Dose Reduction Employed: Iterative recon; COMPARISON: None available. RESULT: Post-operative change: None. Acute change: No evidence of a sizable/large acute territorial brain infarct/parenchymal edema. MRI may be considered as a more sensitive modality if continued clinical concern/warranted. Hemorrhage: No evidence of acute intracranial hemorrhage. Mass Lesion / Mass Effect: There is no evidence of a sizable brain mass. No significant mass effect or extra-axial fluid collection. Chronic (or likely chronic) changes, including brain parenchymal: Mild intracranial arterial wall calcifications. Dural calcifications. The cerebellar tonsils incidentally lie at or slightly below the level of foramen magnum. There may be a partially empty sella appearance, which would be nonspecific. Small cystic changes/lacunar infarctions in the LEFT greater than RIGHT frontal parietal white matter. Scattered patchy hypodense supratentorial white matter foci are nonspecific, but most commonly on the basis of mild microvascular ischemia. Mild generalized cerebral volume loss. Ventricles: Commensurate with sulcal sizes. No hydrocephalus. Visualized paranasal sinuses: Partially imaged. Scattered mild mucosal thickening. Small opacities of probable mucosal retention cyst(s) and/or polyp(s). Other: No depressed skull fracture is seen. Circuit Manager (topogram) images: Degenerative spine changes noted. Non-diagnostic otherwise. IMPRESSION: Brain CT shows no evidence of an acute intracranial abnormality. Chronic intracranial changes and other details above. Tax Technician: [facility] Transcribe Date/Time: Dec 18 2024 11:53P Dictated by : LOVE VALENCIA MD This examination was interpreted and the report reviewed and electronically signed by: LOVE VALENCIA MD on Dec 19 2024 12:12AM EST [id number] Normal [facility] CTA CHEST (NON GATED) W IVCO N PEon 12-18-2024 CTA CHEST (NON GATED) W IVCON PE * * *Final Report* * * DATE OF EXAM: Dec 18 2024 10:27PM [facility] 0564 - CTA CHEST (NON GATED) W IVCON PE / PROCEDURE REASON: Pulmonary embolism (PE) suspected, high prob * * * * Physician Interpretation * * * * EXAMINATION: CHEST CTA (NON GATED) WITH CONTRAST (PULMONARY EMBOLISM PROTOCOL) Clinical History: Pulmonary embolism suspected, near syncope Technique: Spiral CT acquisition of the chest from the thoracic inlet to the upper abdomen following IV contrast. Axial 1 and 3 mm thick slices plus coronal and sagittal reformatted images. MQ: CTCP_5 Contrast: 80 mL Omnipaque [address] Radiation dose: Integrated Dose-length product (DLP) for this visit = 421 mGy*cm CT Dose Reduction Employed: Automated exposure control(AEC) and iterative recon CTA: Post-processed images (Maximum intensity Projection (MIP), Volume-rendered (VR), or Surface shaded display images (SSD) were created, reviewed and archived. Comparison: No relevant prior studies available. RESULT: Limitations: None. Evaluation for thromboembolic disease: - Right heart chambers: No thromboembolic disease. - Main pulmonary arteries: No thromboembolic disease. - Lobar pulmonary arteries: No thromboembolic disease. - Segmental pulmonary arteries: No thromboembolic disease. - Subsegmental pulmonary arteries: No thromboembolic disease. - Additional pulmonary artery findings: The main pulmonary artery is enlarged, as can be seen with pulmonary hypertension. Lines, tubes, and devices: None. Lung parenchyma and airways: No consolidation. Calcified 6 mm nodule at the lingula and a smaller one posteriorly near the left lung apex. No suspicious pulmonary nodule. The central airways are patent. Pleural space: No pleural effusion. No pleural thickening. Lower neck, lymph nodes, and mediastinum: The imaged thyroid gland is normal. Calcified mediastinal and left perihilar lymph nodes. No lymphadenopathy in the supraclavicular, axillary, mediastinal, or hilar regions. Heart, pericardium, and thoracic vessels: The thoracic aorta is normal in caliber. Mild cardiac enlargement. Atherosclerosis, including Coronary artery atherosclerotic calcifications are noted, although the study is not optimized for coronary assessment. No pericardial effusion or thickening. Bones and soft tissues: No acute or aggressive osseous process. Upper abdomen: No acute abnormality in the imaged upper abdomen. Heterogeneous contents in the stomach. Localizer images: No additional findings. IMPRESSION: 1. No CT evidence of pulmonary thromboembolism. 2. No acute pulmonary process. 3. Calcified granulomas and lymph nodes. Tax Technician: [facility] Transcribe Date/Time: Dec 19 2024 12:32A Dictated by : JASON HINKLE MD This examination was interpreted and the report reviewed and electronically signed by: JASON HINKLE MD on Dec 19 2024 12:45AM EST [id number] Normal [facility] Comprehensive metabolic 2000 panelon 12-18-2024 Albumin [Mass/Vol] 3.7 g/dL Low 3.9-4.9 [facility] Comment on above: Order Comment: Speci men Type: BLOOD SPECIMEN Ordering Facility: [facility] Address: [address] [place] [address] Performed By: #### 2 157-6, 24359-1, 3040-3, 78048-2 #### [facility] CLIA [id number] [address] [place] [address] [place] ALP [Catalytic activity/Vol] 55 U/L Normal 34-123 [facility] Comment on above: Order Comment: Speci men Type: BLOOD SPECIMEN Ordering Facility: [facility] Address: [address] [place] [address] Performed By: #### 2 157-6, 07037-7, 3040-3, 75346-9 #### [facility] CLIA [id number] [address] [place] [address] [place] ALT [Catalytic activity/Vol] 9 U/L Normal 7-38 [facility] Comment on above: Order Comment: Speci men Type: BLOOD SPECIMEN Ordering Facility: [facility] Address: [address] [place] [address] Performed By: #### 2 157-6, 48278-2, 3040-3, 13245-0 #### [facility] CLIA [id number] [address] [place] [address] [place] Anion gap [Moles/Vol] 15 mmol/L Normal 8-15 [facility] Comment on above: Order Comment: Speci men Type: BLOOD SPECIMEN Ordering Facility: [facility] Address: [address] [place] [address] Performed By: #### 2 157-6, 24312-0, 3040-3, 11062-9 #### [facility] CLIA [id number] [address] [facility] [place] [address] [place] AST [Catalytic activity/Vol] 16 U/L Normal 13-35 [facility] Comment on above: Order Comment: Speci men Type: BLOOD SPECIMEN Ordering Facility: [facility] Address: [address] [place] [address] Performed By: #### 2 157-6, 48292-9, 3040-3, 59921-2 #### [facility] CLIA [id number] [address] [place] [address] [place] Bilirubin [Mass/Vol] 0.2 mg/dL Normal 0.2-1.3 [facility] Comment on above: Order Comment: Speci men Type: BLOOD SPECIMEN Ordering Facility: [facility] Address: [address] [place], [place] [address] Performed By: #### 2 157-6, 63647-6, 3040-3, 25103-5 #### [facility] CLIA [id number] [place] [address] [place] Calcium [Mass/Vol] 9.4 mg/dL Normal 8.5-10.2 [facility] Comment on above: Order Comment: Speci men Type: BLOOD SPECIMEN Ordering Facility: [facility] Address: [address] [place] [address] Performed By: #### 2 157-6, 52641-0, 3040-3, 55888-5 #### [facility] CLIA [id number] [place] [address] [place] Chloride [Moles/Vol] 99 mmol/L Normal 98-107 [facility] Comment on above: Order Comment: Speci men Type: BLOOD SPECIMEN Ordering Facility: [facility] Address: [address] [place] [address] Performed By: #### 2 157-6, 86606-2, 0-3, 90932-6 #### [facility] CLIA [id number] [address] [place] [address] [place] CO2 [Moles/Vol] 24 mmol/L Normal 22-30 [facility] Comment on above: Order Comment: Speci men Type: BLOOD SPECIMEN Ordering Facility: [facility] Address: [address] [place], [place] [address] Performed By: #### 2 157-6, 56930-3, 3040-3, 07052-3 #### [facility] CLIA [id number] [address] [place] [address] [place] Creatinine [Mass/Vol] 1.24 mg/dL High 0.58-0.96 [facility] Comment on above: Order Comment: Speci men Type: BLOOD SPECIMEN Ordering Facility: [facility] Address: [address] [id number] Performed By: #### 2 157-6, 55188-8, 3040-3, 98112-6 #### [facility] CLIA [id number] [address] [place] [address] [place] eGFRcr SerPlBld CKD-EPI 2020 45 mL/min/1.73m??? Low >=60 [facility] Comment on above: Order Comment: Skyler trammell Type: BLOOD SPECIMEN Ordering Facility: [facility] Address: [address] [place] [address] Result Comment: Vicky mated Glomerular Filtration Rate (eGFR) is calculated using the 2020 CKD-EPI creatinine equation. This equation utilizes serum creatinine, sex, and age as parameters. The creatinine assay has traceable calibration to isotope dilution-mass spectrometry. Refer to KDIGO guidelines for clinical interpretation. In patients with unstable renal function, e.g. those with acute kidney injury, the eGFR may not accurately reflect actual GFR. Performed By: #### 2 157-6, 24977-7, 3040-3, 10629-8 #### [facility] CLIA [id number] [address] [place] [address] [place] Glucose [Mass/Vol] 153 mg/dL High 74-99 [facility] Comment on above: Order Comment: Skyler [facility] Type: BLOOD SPECIMEN Ordering Facility: [facility] Address: [address] [place] [address] Result Comment: The [place] Diabetes Association (ADA) provides guidance for cutoff [...] Standards of Medical Care in Diabetes 2016, [place] Diabetes Association. Diabetes Care. 2016.39(Suppl 1). Performed By: #### 2 157-6, 63629-1, 3040-3, 70683-3 #### [facility] CLIA [id number] [address] [place] [address] [place] Potassium [Moles/Vol] 3.1 mmol/L Low 3.7-5.1 [facility] Comment on above: Order Comment: Speci men Type: BLOOD SPECIMEN Ordering Facility: [facility] Address: [address] [place], [place] [address] Performed By: #### 2 157-6, 13481-7, 3040-3, 67681-4 #### [facility] CLIA [id number] [address] [place] [address] [place] Protein [Mass/Vol] 6.4 g/dL Normal 6.3-8.0 [facility] Comment on above: Order Comment: Speci men Type: BLOOD SPECIMEN Ordering Facility: [facility] Address: [address] [place], [place] [address] Performed By: #### 2 157-6, 58485-1, 3040-3, 54737-8 #### [facility] CLIA [id number] [address] [place] [address] [place] Sodium [Moles/Vol] 138 mmol/L Normal 136-144 [facility] Comment on above: Order Comment: Speci men Type: BLOOD SPECIMEN Ordering Facility: [facility] Address: [address] [place], [place] [address] Performed By: #### 2 157-6, 75160-3, 3040-3, 15651-6 #### [facility] CLIA [id number] [address] [place] [address] [place] Urea nitrogen [Mass/Vol] 22 mg/dL High 7-21 [facility] Comment on above: Order Comment: Speci men Type: BLOOD SPECIMEN Ordering Facility: [facility] Address: [address] [place] [address] Performed By: #### 2 157-6, 98156-4, 3040-3, 15403-4 #### [facility] CLIA [id number] [place] [address] [facility] ED NOTEon 12-18-2024 ED NOTE HNO ID: [id number] Author: ISHMAEL GARCIA, RICARDO Service: ? Author Type: Registered Nurse Type: ED Notes Filed: 12/18/2024 20:17 Note Text: Bed: ED-12 Expected date: Expected time: Means of arrival: Comments: Normal [facility] ED PROV NOTEon 12-18-2024 ED PROV NOTE HNO ID: [id number] Author: GOVIND SNOW DO Service: ? Author Type: Physician Type: ED Provider Notes Filed: 12/19/2024 01:05 Note Text: ED Provider Note Patient Name: Bettie Burns : 1945 SERVICE DATE: 12/18/24 History Patient presents with: Dizziness: Near syncopal episode after dinner; pt reports they had 1.5 drinks with dinner Patient presents here with a near syncopal episode. She went out to dinner and had 2 martinis. Had finished around and was on her way out when she became near syncopal. States she had some dizziness and thought she might go out . Denies any chest pain or shortness of breath. No unilateral weakness or paresthesias. States she has a history of A-fib is on flecainide and a beta-philip. Is on Eliquis and compliant. No visual changes or neck pain now. States that her dizziness has resolved and currently she feels fine laying flat in the cart. EMS states that she was hypotensive in the 90s upon arrival. PAST MEDICAL HISTORY Diagnosis Date AF (atrial fibrillation) (HCC) 12/2016 Cancer (HCC) breast cancer Hypertension Sciatic nerve pain Ulcer PAST SURGICAL HISTORY Procedure Laterality Date APPENDECTOMY HX CATARACT SURGERY, COMPLEX CHOLECYSTECTOMY FOOT SURGERY HX FREEZOR MAX CRYOBLATION CATH HYSTERECTOMY HX PAST SURGICAL HISTORY OF bilateral eyelid lift ROTATOR CUFF REPAIR Bilateral FAMILY HISTORY Problem Relation Age of Onset Cancer Mother colon; 72, Stomach ca; 63, biliary; 81 Cancer Father Lung Cancer Sister colon, liver, melanoma, pancreatic 69 (MSH2 del exons 8-15) Cancer Brother Prostate;64 Breast Cancer Other niece dx 42 Breast Cancer Other great niece dx 30 Social History[1] ALLERGIES Allergen Reactions Baclofen Unknown Codeine Unknown Hydrocodone-Acetami* Unknown Levofloxacin Unknown Morphine Hives Oxycodone Hives Penicillins Hives Review of Systems Physical Exam Vitals [12/18/24 2019] BP Pulse Temp Temp src Resp SpO2 Weight Height 120/50 65 36.6 ?C (97.8 ?F) Oral 16 95 % 78 kg (172 lb) 1.651 m (5' 5 ) Physical Exam Diagnostic Testing ED Labs Ordered and Reviewed - No data to display Procedures ED Course / Clinical Impression Clinical Impressions as of 12/19/24 0103 ACE (acute kidney injury) Hypokalemia Near syncope Dehydration MDM / Disposition / Plan Patient here in reeval asymptomatic markedly improved normotensive without tachycardia fever had a discussion regarding plan and disposition at length with patient. I did offer to admit her for fluid hydration and improvement and further treatment of the hypokalemia. 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 Would much prefer to go home. She is here with family and daughter who are amenable with this plan. CTA negative. Troponin triple negative and ruled out using the care path. Given a Keflex here for her UTI. Remainder workup reassuring at this point and patient will be discharged in stable condition with family. No leukocytosis or anemia of note. Remainder labs within expected limits. CTA showed no PE or dissection. EKG here negative for STEMI or arrhythmia. Signs and symptoms warranting return discussed. History and Record Review External record(s) reviewed: prior outpatient record. Findings from review of outpatient records: Office visit with Elliot Starks Differential Diagnoses - Near syncope, dehydration is more likely for the following reason(s): suggested by HANDP - Acute coronary syndrome, pulmonary embolism is less likely for the following reason(s): no evidence on imaging and HANDP not suggestive Management I performed an independent interpretation of the following:imaging and telemetry Telemetry: My interpretation is No STEMI Imaging: My interpretation is CTA shows no PE Re-evaluation see ED course and clinically improved and feeling better Govind Snow DO Disposition The patient was discharged. Yes Escalation of care including transfer to ED considered. Reason(s) for deciding against admission/observation: Offered and after shared decision making we will go home and pursue outpatient follow-up Counseled patient and family regarding lab results, radiology results and suspected diagnosis. SIGNATURE: Govind Snow DO - [1] Social History Tobacco Use Smoking status: Former Current packs/day: 0.00 Average packs/day: 1 pack/day for 20.0 years (20.0 ttl pk-yrs) Types: Cigarettes Start date: 12/05/1970 Quit date: 12/05/1990 Years since quittin.0 Smokeless tobacco: Never Vaping Use Vaping status: Never Used Substance and Sexual Activity Alcohol use: Yes Drug use: No Sexual activity: Never GOVIND SNOW 12/19/24 0105 [facility] EKGon 12-18-2024 Electrocardiogram Ventricular Rate : 5 3 BPM Atrial Rate : 53 BPM P-R Interval : 255 ms QRS Duration : 125 ms Q-T Interval : 458 ms QTC Calculation(Bazett) : 430 ms Calculated P [place] : 231 degrees Calculated R [place] : -23 degrees Calculated T [place] : 117 degrees Sinus or ectopic atrial rhythm Prolonged AK intervalAbnormal ECG Confirmed by GOVIND SNOW DO ([id number]) on 12/19/2024 1:04:30 AM NAME : BETTIE BURNS PID : [id number] : 1945 Gender : Female Race : ORD : Procedure Date : Dec 18 2024 20:27:32 Edit Date : Dec 19 2024 01:04:35 Diagnosis: Sinus or ectopic atrial rhythm Prolonged AK intervalAbnormal ECG Confirmed by GOVIND SNOW DO ([id number]) on 12/19/2024 1:04:30 AM Test Reason : Location : [address] : [place] [address] Overread By : GOVIND SNOW DO Edited By : GOVIND SNOW DO Referred By : , Acquired by : , [facility] Ethanol SerPl-ncon 025 Ethanol [Mass/Vol] 105 mg/dL High <11 [facility] Comment on above: Order Comment: Speci men Type: BLOOD SPECIMEN Ordering Facility: [facility] Address: [address] [address] Result Comment: Valu es > 80 mg/dL may indicate intoxication Performed By: #### 5 643-2 #### [facility] CLIA [id number] [place] [address] [place] HIGH SENSITIVITY TROPONIN T (INITIAL)on 12-18-2024 Troponin T.cardiac High sensitivity method [Mass/Vol] 14 ng/L High <12 [facility] Comment on above: Order Comment: Speci men Type: BLOOD SPECIMEN Ordering Facility: [facility] Address: [address] [place] [address] Performed By: #### L [id number] #### [facility] CLIA [id number] [address] [place] [address] [place] HIGH SENSITIVITY TROPONIN T (SECOND)on 12-18-2024 Troponin T.cardiac High sensitivity method [Mass/Vol] 12 ng/L High <12 [facility] Comment on above: Order Comment: Speci men Type: URINE SPECIMEN Ordering Facility: [facility] Address: [address] [place] [address] Performed By: #### 2 4356-8 #### [facility] CLIA [id number] [address] [place] [address] [place] #### 630-4 #### [facility] CLIA [id number] [address] [place] [address] [place] Lipase SerPl-cCncon 12-19-19 25 Lipase [Catalytic activity/Vol] 24 U/L Normal 16-61 [facility] Comment on above: Order Comment: Speci men Type: BLOOD SPECIMEN Ordering Facility: [facility] Address: [address] [place] [address] Performed By: #### 2 157-6, 29340-3, 3040-3, 72326-6 #### [facility] CLIA [id number] [place] [address] [place] Magnesium SerPl-mCncon 12-18 Magnesium [Mass/Vol] 2.0 mg/dL Normal 1.7-2.3 [facility] Comment on above: Order Comment: Speci men Type: BLOOD SPECIMEN Ordering Facility: [facility] Address: [address] [place] [address] Performed By: #### 2 157-6, 78742-0, 3040-3, 58768-5 #### [facility] CLIA [id number] [facility]. [address] [place] NT-proBNP [facility] 12-18 Natriuretic peptide.B prohormone N-Terminal [Mass/Vol] 507 pg/mL High <450 [facility] Comment on above: Order Comment: Skyler trammell Type: BLOOD SPECIMEN Ordering Facility: [facility] Address: [address] [place] [address] Performed By: #### 3 3762-6 #### [facility] CLIA [id number] [address] [facility]. [address] STATES OF [facility] PT panel Coag (PPP)on 2024 INR Coag (PPP) [Relative time] 1.1 {INR} Normal 0.9-1.3 [facility] Comment on above: Order Comment: Skyler trammell Type: BLOOD SPECIMENOrdering Facility: [facility] Address: [address] [place] [address] Result Comment: Leta min K Antagonist (VKA) Therapeutic Range: INR 2 to 3 (Target INR of 2.5) Note: For patients treated with VKA drugs, such as warfarin, the [place] College of Chest Physicians 2012 Guideline recommends a therapeutic INR range of 2 to 3 (target INR of 2.5). This recommendation includes high-risk patients with antiphospholipid syndrome with previous arterial or venous thromboembolism, current-generation mechanical or bioprosthetic aortic heart valve replacement. Note: Patients with mechanical aortic valve replacement and additional risk factors for thromboembolic events (atrial fibrillation, previous thromboembolism, LV dysfunction, hypercoagulable conditions) or an older generation mechanical AVR (i.e., ball in-Cage) or any mechanical MVR should have a INR therapeutic range of 2.5 to 3.5 (target INR of 3). Indy GH, et al. Chest 2012, 141:7S-47S Jw RA, et al. JACC 2017, 70: 252-289 Performed By: #### 2 4356-8 #### [facility] CLIA [id number] [place] #### 630-4 #### [facility] CLIA [id number] [address] [place] [address] [place] PT Coag (PPP) [Time] 11.7 s Normal 9.7-13.0 [facility] Comment on above: Order Comment: Speci men Type: BLOOD SPECIMENOrdering Facility: [facility] Address: [address] [place] [address] Performed By: #### 2 4356-8 #### [facility] CLIA [id number] [address] [place] [address] [facility] [place] #### 630-4 #### [facility] CLIA [id number] [address] [place] [address] [place] XR CHEST 1V FRONTAL PORTon 0 12-18-2024 XR CHEST 1V FRONTAL PORT * * *Final Report* * * DATE OF EXAM: Dec 18 2024 8:46PM VHX [id number] - XR CHEST 1V FRONTAL PORT / PROCEDURE REASON: Shortness of breath * * * * Physician Interpretation * * * * EXAMINATION: CHEST RADIOGRAPH (PORTABLE SINGLE VIEW AP) Exam Date/Time: 12/18/2024 8:46 PM CLINICAL HISTORY: Shortness of breath MQ: XCPR_5 Comparison: None. RESULT: Lines, tubes, and devices: None. Lungs and pleura: There is hypoinflation of the lungs with crowded lung markings in the left retrocardiac region and no definite infiltrate or pleural effusion. Cardiomediastinal silhouette: There is mild cardiomegaly. Other: The patient is status post left breast/axillary surgery. IMPRESSION: Chronic changes as described above with no definite acute disease. Tax Technician: PSCB Transcribe Date/Time: Dec 18 2024 8:55P Dictated by : KATRIN PHILIP MD This examination was interpreted and the report reviewed and electronically signed by: KATRIN PHILIP MD on Dec 18 2024 8:56PM EST [id number] Normal [facility] CBC (NO DIFF)on 11-09-2024 Erythrocyte distribution width (RBC) [Ratio] 12.8 % Normal 11.5-15 [facility] Comment on above: Performed By: #### C BC #### [facility] ([facility]) [address] [place] [address] VIR Hematocrit (Bld) [Volume fraction] 40.0 % Normal 35-47 [facility] Comment on above: Performed By: #### C BC #### [facility] ([facility]) [address] [place] [address] VIR Hemoglobin (Bld) [Mass/Vol] 13.6 g/dL Normal 11.7-15.5 [facility] Comment on above: Performed By: #### C BC #### [facility] ([facility]) [address] [place] [address] VIR MCH (RBC) [Entitic mass] 32.7 pg Normal 27-34 [facility] Comment on above: Performed By: #### C BC #### [facility] ([facility]) [address] [place] [address] VIR MCHC (RBC) [Mass/Vol] 34.1 g/dL Normal 32-36 [facility] Comment on above: Performed By: #### C BC #### [facility] ([facility]) [address] [place] [address] VIR MCV (RBC) [Entitic vol] 96 fL Normal 80-100 [facility] Comment on above: Performed By: #### C BC #### [facility] ([facility]) [address] [place] [address] VIR Platelet mean volume (Bld) [Entitic vol] 7.0 fL Normal 7-12 [facility] Comment on above: Performed By: #### C BC #### [facility] ([facility]) [address] [place] [address] VIR Platelets (Bld) [#/Vol] 206 10*3/uL Normal 150-450 [facility] Comment on above: Performed By: #### C BC #### [facility] ([facility]) [address] [place] [address] VIR RBC COUNT 4.16 X10E12/L Normal 3.8-5.2 [facility] Comment on above: Performed By: #### C BC #### [facility] ([facility]) [address] [place] [address] VIR WBC (Bld) [#/Vol] 5.1 10*3/uL Normal 4-11 [facility] Comment on above: Performed By: #### C BC #### [facility] ([facility]) [address] [place] [address] VIR COMPREHENSIVE METABOLIC PANE Roland 11-08-2024 Albumin [Mass/Vol] 4.2 g/dL Normal 3.2-5.3 [facility] Comment on above: Performed By: #### C MP #### [facility] ([facility]) [address] [place] [address] VIR ALP [Catalytic activity/Vol] 48 U/L Normal 39-130 [facility] Comment on above: Performed By: #### C MP #### [facility] ([facility]) [address] [place] [address] VIR ALT [Catalytic activity/Vol] 10 U/L Normal <=31 [facility] Comment on above: Performed By: #### C MP #### [facility] ([facility]) [address] [place] [address] VIR Anion gap [Moles/Vol] 8 mmol/L Normal 5-15 [facility] Comment on above: Performed By: #### C MP #### [facility] ([facility]) [address] [place] [address] VIR AST [Catalytic activity/Vol] 17 U/L Normal <=41 [facility] Comment on above: Performed By: #### C MP #### [facility] ([facility]) [address] [place] [address] VIR Bilirubin [Mass/Vol] 0.5 mg/dL Normal 0.3-1.2 [facility] Comment on above: Performed By: #### C MP #### [facility] ([facility]) [address] [place] [address] VIR Calcium [Mass/Vol] 10.0 mg/dL Normal 8.5-10.5 [facility] Comment on above: Performed By: #### C MP #### [facility] ([facility]) [address] [place] [address] VIR Chloride [Moles/Vol] 101 mmol/L Normal 98-109 [facility] Comment on above: Performed By: #### C MP #### [facility] ([facility]) [address] [place] [address] VIR CO2 [Moles/Vol] 32 mmol/L Normal 22-32 [facility] Comment on above: Performed By: #### C MP #### [facility] ([facility]) [address] [place] [address] VIR Creatinine [Mass/Vol] 1.06 mg/dL High 0.40-1.00 [facility] Comment on above: Result Comment: METH OD TRACEABLE TO IDMS STANDARD Performed By: #### C MP #### [facility] ([facility]) [address] [place] [address] VIR GFR/1.73 sq M.predicted among non-blacks MDRD (S/P/Bld) [Vol rate/Area] 54 mL/min/{1.73_m2} Low >=60 [facility] Comment on above: Result Comment: Repo rted eGFR is based on the CKD-EPI 2020 equation that does not use a race coefficient. Performed By: #### C MP #### [facility] ([facility]) [address] [place] [address] VIR Glucose [Mass/Vol] 109 mg/dL High 65-99 [facility] Comment on above: Performed By: #### C MP #### [facility] ([facility]) [address] [place] [address] VIR Potassium [Moles/Vol] 3.9 mmol/L Normal 3.5-5.0 [facility] Comment on above: Performed By: #### C MP #### [facility] ([facility]) [address] [place] [address] VIR Protein [Mass/Vol] 7.2 g/dL Normal 6.0-8.0 [facility] Comment on above: Performed By: #### C MP #### [facility] ([facility]) [address] [place] [address] VIR Sodium [Moles/Vol] 141 mmol/L Normal 134-146 [facility] Comment on above: Performed By: #### C MP #### [facility] ([facility]) [address] [place] [address] VIR Urea nitrogen [Mass/Vol] 27 mg/dL Normal 5-27 [facility] Comment on above: Performed By: #### C MP #### [facility] ([facility]) [address] [place] [address] VIR MAGNESIUMon 11-08-2024 Magnesium [Mass/Vol] 1.9 mg/dL Normal 1.8-2.6 [facility] Comment on above: Performed By: #### M G #### [facility] ([facility]) [address] [place] [address] VIR POCT EKGOrdered By: Cora contreras on 11-08-2024 [facility] [facility] Ambulatory Visit Summaryon 0 10-26-2024 Ambulatory Visit Summary Ambulatory Visit Summary BETTIE BURNS :1945 Visit Date:10/26/2024 Ambulatory Visit Instructions Your Diagnosis Mixed incontinence Frequent UTI History of kidney stones Microscopic hematuria Anticoagulated History of breast cancer Former smoker Your Care Team Attending Physician - Maria E Osman PA-C Primary Care Physician - RAUDEL VILLEGAS, ELLIOT [...] 40 mg Cap-DR) potassium chloride (Potassium Chloride (Fqu-Ojej-Eof 10) 10 mEq oral tablet, extended release) [...] E Osman PA-C Where: [facility] [address] [place] [address]- Medications What How Much When Why Instructions [...] 1 Capsules Unchanged potassium chloride (Potassium Chloride (Xhy-Mbyo-Ppy 10) 10 mEq oral tablet, extended release) [...] signed up for this yet, please contact [employer] at [phone] to get signed up today. Language Information Language assistance services are available as needed. Rhea [facility] Urology Office/Clinic Noteon 10-26-2024 Urology [...] off and repeat Botox is desired Ordered: 07817 Measure Post Void residual urine and/or bladder capacity by US- non-imaging Urnls Dip Stick Auto w/o Microscopy POC 80170 2. Frequent UTI (N39.0: Urinary tract infection, [...] -Cont symptom monitoring -High fluid intake, add lemon/deering -Moderate animal protein, increase fruits and vegetables 4. 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 She has had a hematuria workup including a scope in the past at [facility]. Denies gross hematuria. CTU 07/18/24 - neg for filling defects, 3 mm right ureteral stone noted. Follow up CT scan confirmed passage. S/p cysto 09/19/24 - negative for b.t., lesions, stones or foreign bodies. Cystitis cystica. Moderate vaginal atrophy. UA today w/ moderate bloo (more content not included)... Normal [facility] Comment on above: Result Comment: Elec tronically Signed By: Maria E Osman PA-C\.cassandra\Date and Time Signed: 10/26/24 09:05 EDT Inpatient Patient Summaryon 09-19-2024 Inpatient Patient Summary Inpatient Patient Summary [place] [id number] Clinical Summary Person Information Name: BETTIE BURNS Age: 79 Years : 1945 Sex: Female PCP: ELLIOT STARKS MD Marital Status: Race: White Ethnicity: Non- or Language: [place] Visit Id: Visit Reason: MIXED INCONTINENCE Speciality: Acuity: Enc Type: Outpatient Med Service: Surgery Arrival: 09/19/2024 07:39:26 Discharge: Dispo Type: Address: [address] [place] [id number] Provider Notes: Diagnosis: Mixed incontinence; Recurrent UTI; [...] Cap-DR) 1 Capsules. potassium chloride (Potassium Chloride (Tmh-Ibxu-Dhu 10) 10 mEq oral tablet, extended release) [...] Cystoscopy with Botox Injection Discharge Instructions (CUSTOM) [facility] Main OR Intraoperative Recor don 09-19-2024 Main OR Intraoperative Record Main OR Intraoperative Record IntraOp Document Type FTURO Summary Primary Physician: Alfreda Miller MD Finalized Date/Time: 09/19/24 08:27:50 Pt. Name: JEANNE BURNSWALLACE Browning/Sex: 1945 Female Med Rec #: [id number] Physician: Alfreda Miller MD Financial #: [id number] Pt. Type: O Room/Bed: / Admit/Disch: 09/19/24 07:39:26 - Institution: Case Times FTURO Entry 1 Patient Times In Room 09/19/24 08:12:00 Out Room 09/19/24 08:24:00 Procedure Times Start 09/19/24 08:17:00 Stop 09/19/24 08:20:00 Anesthesia Times Last Modified By: Roxy King 09/19/24 08:27:24 General Comments: BOTOX 100 UNITS: EXP: AND LOT: [id number].RICARDO MOREIRA . Case Attendance FTURO Entry 1 Entry 2 Entry 3 Case Attendee Alfreda Miller MD, Kelsie E Miller, Laura C Role Performed Surgeon - Primary Soil Science Professor - Primary Scrub - Primary Time In [...] Signatures Signed By: Roxy King 09/19/24 08:[address] [facility] Main OR Preoperative Recordo n 09-19-2024 Main OR Preoperative Record Main OR Preoperative Record Holding Area Document Type FTURO Summary Primary Physician: Alfreda Miller MD Finalized Date/Time: 09/19/24 08:17:11 Pt. Name: BETTIE BURNS /Sex: 1945 Female Med Rec #: [id number] Physician: Alfreda Miller MD Financial #: [id number] Pt. Type: O Room/Bed: / Admit/Disch: 09/19/24 [...] Complaints of Pain: No Skin Integrity Intact, [place], Warm, & Dry Vitals - EU Blood [...] Unfinalizing Freetext Reason for Unfinalizing 09/19/24 08:16 [id number] Adding Additional Data Normal [facility] Operative Reporton Operative Report Operative [...] regarding vaginal atrophy and recurrent UTIs. Normal [facility] Comment on above: Result Comment: Elec tronically Signed By: Paul VILLEGAS, Alfreda Palacios\.br\Date and Time Signed: 09/19/24 08:25 EDT Outpatient Surgery Discharge Instructionon 09-19-2024 Outpatient Surgery Discharge Instruction Outpatient Surgery Discharge Instruction [place] [id number] Patient Discharge Instructions PERSON INFORMATION Name: BETTIE BURNS Date of : 1945 Current Date: 09/19/2024 08:23:16 PHYSICIANS Admitting Physician: Paul VILLEGAS, Alfreda Palacios Comment: Discharge Diagnosis: Mixed incontinence; Recurrent UTI; [...] to serve you. Thank you for choosing [facility] Normal [facility] C Urineon 09-14-2024 Bacteria identified [...] Locations R1: This test was performed at: [facility], [address] [place] [address], [address]- , , [facility] Comment on above: Performed By: #### 2 [id number] #### [facility] [address] [place] [address] C Urineon 06-24-2024 Bacteria identified Cx Nom [...] Locations R1: This test was performed at: [facility], [address] [place] [address], [facility] , , [facility] Comment on above: Performed By: #### 2 [id number] #### [facility] [address] [place] [address] Ambulatory Visit Summaryon 0 06-22-2024 Ambulatory Visit [...] 40 mg Cap-DR) potassium chloride (Potassium Chloride (Gqx-Rsby-Mzu 10) 10 mEq oral tablet, extended release) [...] Follow-Up Appointments Thursday 10:30 AM EDT Where: [facility] Thursday 8:15 AM EDT Where: [facility] Medications What How [...] 1 Capsules Unchanged potassium chloride (Potassium Chloride (Kzz-Oprv-Nei 10) 10 mEq oral tablet, extended release) [...] for choosing us for your care. Normal [facility] URINALYSISOrdered By: Tien Lyon on [...] that meet specific criteria set forth by [facility]. Epithelial cells.squamous Auto (Urine [...] Desc Random Urine (06/22/24 1:48 PM) Normal [facility] UA Auto SS Urinalysis with Microon 06-04 Bacteria Auto Ql (U) 1+ /HPF Abnormal Trace Fish er [facility] Comment on above: Performed By: #### 4 [id number] #### [facility] [address] [place] [address] Bilirubin Ql (U) Negative Normal Negative [facility] Comment on above: Performed By: #### 4 [id number] #### [facility] [address] [place] [address] Clarity (U) Clear Normal Clear [facility] Comment on above: Performed By: #### 4 [id number] #### [facility] [address] [place] [address] Color (U) Light-Yellow Normal Yellow [facility] Comment on above: Result Comment: Micr oscopic readings are only performed on those samples that meet specific criteria set forth by [facility]. Performed By: #### 4 [id number] #### [facility] [address] [place] [address] Epithelial cells.squamous Auto (Urine sed) [#/Area] 0-2 Invalid Interpretation Code [facility] Comment on above: Performed By: #### 4 [id number] #### [facility] [address] [place] [address] Glucose Ql (U) Negative Normal Negative [facility] Comment on above: Performed By: #### 4 [id number] #### [facility] [address] [place] [address] Hemoglobin Auto test strip (U) [Mass/Vol] 2+ Abnormal Negative [facility] Comment on above: Performed By: #### 4 [id number] #### [facility] [address] [place] [address] Ketones Auto test strip Ql (U) Negative Normal Negative [facility] Comment on above: Performed By: #### 4 [id number] #### [facility] [address] [place] [address] Leukocyte esterase Auto test strip Ql (U) 250 Felipe/uL Abnormal Negative [facility] Comment on above: Performed By: #### 4 [id number] #### [facility] [address] [place] [address] Mucus Auto Ql (U) Negative Normal Negative [facility] Comment on above: Performed By: #### 4 [id number] #### [facility] [address] [place] [address] Nitrite Auto test strip Ql (U) Negative Normal Negative [facility] Comment on above: Performed By: #### 4 [id number] #### [facility] [address] [place] [address] pH (U) 6.0 [pH] Invalid Interpretation Code 5.0-9.0 [facility] Comment on above: Performed By: #### 4 [id number] #### [facility] [address] [place] [address] Protein Ql (U) Negative Normal Negative [facility] Comment on above: Performed By: #### 4 [id number] #### [facility] [address] [place] [address] RBC Ql (U) 4-20 Abnormal 0-3 [facility] Comment on above: Performed By: #### 4 [id number] #### [facility] [address] [place] [address] Specific gravity (U) [Rel density] 1.013 Invalid Interpretation Code 1.005-1.030 [facility] Comment on above: Performed By: #### 4 [id number] #### [facility] [address] [place] [address] Urobilinogen (U) [Mass/Vol] Negative Normal Negative [facility] Comment on above: Performed By: #### 4 [id number] #### [facility] [address] [place] [address] WBC Auto (Urine sed) [#/Area] 31-75 Abnormal 0-5 [facility] Comment on above: Performed By: #### 4 [id number] #### [facility] [address] [place] [address] Type of Urine collection method Random Urine Normal [facility] Comment on above: Performed By: #### 4 [id number] #### [facility] [address] [place] [address] Urology Office/Clinic Noteon 06-22-2024 Urology Office/Clinic Note [...] well nourished, in no acute distress. Assessment/[facility] patient, last seen in-office 05/27/23 78 y/o [...] pending completion of cystoscopy w/ KML Ordered: 36918 Measure Post Void residual urine and/or bladder [...] Urnls Dip Stick Auto w/o Microscopy POC 32562 2. Frequent UTI (N39.0: Urinary tract infection, [...] UTIs for (more content not included)... Normal [facility] Comment on above: Result Comment: Elec tronically Signed By: Jacqui MOTT, Maria E\.br\Date and Time Signed: 06/22/24 15:08 EST Shane 09-17-2023 CNPN Telephone (HEMASA) BETTIE BURNS ([id number]) 1945 F Date Time Provider Department 09/17/23 MATT ADAMS During your visit today, we recorded the following information about you: Matt Adams, RICARDO 09/17/2023 10:20 AM Signed Pt called to request yearly Mammogram order I have pended order as previously completed Pt requests to fax to Nori Lema [phone] CASSANDRAM/HM: please review and sign if agreeable RICARDO Lopez [place], RICARDO 09/17/2023 1:31 PM Signed Order faxed to [...] mammogram for malignant neoplasm of breast [Z12.31] Order(s):[facility] SCREENING W YAW [[id number]] Order #: [id number] FUTURE Prescriptions as of 09/17/2023 - lisinopril [...] Status:Closed by ANDREW CHOI on 09/17/23 Normal [facility] BASIC METABOLIC PANELon 03- Anion gap [Moles/Vol] 1 mmol/L MMOL/L [facility] Calcium [Mass/Vol] 8.7 mg/dL [facility] Chloride [Moles/Vol] 103 mmol/L [facility] Comment on above: Please note: Triglyc eride levels of 600mg/dL or higher may positively bias chloride results by approximately 2.1 mmol CO2 [Moles/Vol] 30 mmol/L [facility] Creatinine [Mass/Vol] 1.10 mg/dL [facility] GFR COMMENT Average GFR for 70+ years old = 75. [facility] Comment on above: Chronic Kidney disea se, GFR = <60. Kidney failure, GFR = <15. The GFR estimate is not adjusted for extreme body surface area or acute process, nor has it been validated for women or ethnic groups other than and . GFR/1.73 sq M.predicted among blacks MDRD (S/P/Bld) [Vol rate/Area] 62 mL/min/{1.73_m2} ml/min/1.73s q.m [facility] GFR/1.73 sq M.predicted among non-blacks MDRD (S/P/Bld) [Vol rate/Area] 51 mL/min/{1.73_m2} ml/min/1.73s q.m [facility] Glucose post fast [Mass/Vol] 141 mg/dL High [facility] Comment on above: NORMAL <100 mg/dL PREDIABETES 101-126 mg/dL DIABETES 126 mg/dL or higher Interpretation and review of laboratory results Abnormal [facility] Potassium [Moles/Vol] 3.8 mmol/L [facility] Sodium [Moles/Vol] 134 mmol/L Low [facility] Urea nitrogen [Mass/Vol] 30 mg/dL High [facility] CBC, EDIF, PLATELETon 2023 ABSOLUTE BASOPHIL COUNT 0.0 10*3/uL 0.0 - 0.2 10*3/uL [facility] Basophils/100 WBC (Bld) 0.3 % 0.0 - 2.0 % [facility] Differential cell count method Nom (Bld) AUTO DIFF % [facility] Eosinophils (Bld) [#/Vol] 0.0 10*3/uL 0.0 - 0.7 10*3/uL [facility] Eosinophils/100 WBC (Bld) 0.0 % 0.0 - 11.0 % [facility] Erythrocyte distribution width (RBC) [Ratio] 13.2 % 11.5 - 14.5 % [facility] Hematocrit (Bld) [Volume fraction] 33.6 % Low 36.0 - 48.0 % [facility] Hemoglobin (Bld) [Mass/Vol] 12.0 g/dL [facility] Interpretation and review of laboratory results Abnormal [facility] Lymphocytes (Bld) [#/Vol] 1.1 10*3/uL Low 1.2 - 3.4 10*3/uL [facility] Lymphocytes/100 WBC (Bld) 16.4 % Low 20.0 - 55.0 % [facility] MCH (RBC) [Entitic mass] 33.6 pg 26.0 - 35.0 PG [facility] MCHC (RBC) [Mass/Vol] 35.6 g/dL [facility] MCV (RBC) [Entitic vol] 94.2 fL [facility] Monocytes (Bld) [#/Vol] 0.3 10*3/uL 0.0 - 0.7 10*3/uL [facility] Monocytes/100 WBC (Bld) 4.3 % 0.0 - 10.0 % [facility] Neutrophils (Bld) [#/Vol] 5.2 10*3/uL 1.4 - 6.5 10*3/uL [facility] Neutrophils/100 WBC (Bld) 79.0 % High 37.0 - 75.0 % [facility] Platelet mean volume (Bld) [Entitic vol] 7.0 fL Low [facility] Platelets (Bld) [#/Vol] 226 10*3/uL 130 - 400 10*3/uL [facility] RBC (Bld) [#/Vol] 3.57 10*6/uL Low 4.0 - 5.4 10*6/uL [facility] WBC (Bld) [#/Vol] 6.6 10*3/uL 3.6 - 11.0 10*3/uL [facility] BODY FLUID CELL COUNTon 03-0 Appearance (Body fld) HAZY [facility] Color (Body fld) LIGHT YELLOW [facility] RBC Auto (Body fld) [#/Vol] 3376 /CMM [facility] Specimen source Nom (Body fld) SYNOVIAL FLUID [facility] WBC (Body fld) [#/Vol] 57 10*3/uL /CMM [facility] DIFFERENTIAL, FLUIDon 2023 BASOPHILS, FLUID 2 % [facility] Comment on above: NO REFERENCE RANGE E STABLISHED Eosinophils/100 WBC (Body fld) 4 % [facility] Comment on above: NO REFERENCE RANGE E STABLISHED Lymphocytes/100 WBC (Body fld) 22 % [facility] Comment on above: NO REFERENCE RANGE E STABLISHED MESOTHELIAL CELLS, FLUID 8 % [facility] Comment on above: NO REFERENCE RANGE E STABLISHED Monocytes+Macrophage s/100 WBC Manual cnt (Body fld) 48 % [facility] Comment on above: NO REFERENCE RANGE E STABLISHED Neutrophils/100 WBC (Body fld) 16 % [facility] Comment on above: NO REFERENCE RANGE E STABLISHED [facility] REPEAT ABO/RH (D) TYPINGon 0 07-07-2023 ABO and Rh group Nom (Bld ) Positive [facility] SCREEN: MRSA ONLY, NARES (IS OLATION SCREEN)on 07-07-2023 MRSA isol Org specific cx Ql (Nose) Negative NEGATIVE [facility] STAPHYOCOCCUS AUREUS BY PCR Negative NEGATIVE [facility] Comment on above: TESTING PERFORMED BY PCR [facility] Pelvis 2 Viewson 07-07-19 FINDINGS/IMPRESSION: [...] or other acute bony abnormality is seen. [email or web address] Radiology Study observation (narrative) [email or web address] XR Pelvis 2 ViewsOrdered By: Parveen Mason on 07-07-2023 [email or web address] Work Phone: POCT EKGOrdered By: Samantha Gurrola on 06-02-2023 [employer] COBALT AND CHROMIUM,WBon Chromium (Bld) [Mass/Vol] 1.1 [email or web address] Comment on above: Reference range: <3. 0 Unit: ng/mL PERFORMED BY [employer] [place] (Bld) [Mass/Vol] <1.0 [email or web address] Comment on above: Reference range: <3. 0 Unit: ng/mL (NOTE) Chromium and cobalt analysis performed by inductively coupled plasma/mass spectrometry (ICP/MS). Reference range is for patients with glrqw-qv-iakkf (MoM) orthopedic implants. The [place] Association of Hip and Knee Surgeons, the [place] Academy of Orthopaedic Surgeons, and The Hip Society, have published a consensus statement, Risk Stratification Algorithm for Management of Patients with Wwatz-gm-Oquxy Hip Arthroplasty. The algorithm is intended as an aid to orthopedic surgeons in the assessment and management of patients with Dctvl-mb-Llsvc bearings. The systematic risk stratification includes recommendations [...] developed and its performance characteristics determined by [employer]. It has not been cleared or approved by the Food and Drug Administration. [facility] C REACTIVE PROTEINon 024 CRP [Mass/Vol] 48.4 mg/L High 0 - 10 MG/L [facility] Interpretation and review of laboratory results Abnormal [facility] SEDIMENTATION RATE, AUTOMATE Don 05-14-2023 ESR (Bld) [Velocity] 31 mm/h High [employer] [facility] Interpretation and review of laboratory results Abnormal [facility] Urinalysis - DIPSTICKon 10-03 Appearance (U) cloudy [employer] Other Bilirubin Ql (U) [employer] ast [employer] Other Color (U) yellow [employer] Other Glucose Ql (U) Negative [employer] [facility] Other Hemoglobin Ql (U) [employer] Other Ketones Ql (U) Negative [employer] [facility] Other Leukocyte esterase Test strip Ql (U) moderate [employer] Other Nitrite Ql (U) Positive [employer] [facility] Other pH (U) 5 [pH] [employer] Other Protein Ql (U) Negative [employer] [facility] Other Specific gravity (U) [Rel density] 1.010 [employer] Other Urobilinogen (U) [Mass/Vol] off chart [employer] Other Urinalysis - DIPSTICK [employer] Other Urine Cultureon 10-27-2022 Bacteria identified Cx Nom (U) ORGANISM: Escherichia coli (O:ESCCOL) [place] Count >100,000 Aerobic AUBREY Charge (NMIC56) --- [...] RESISTANT TO ALL B-LACTAM DRUGS. PERFORMED BY: [place] [address] PATHOLOGIST HEALTH CENTER MANAGER JOSE GUADALUPE FERGUSON M.D. Normal [facility] Comment on above: Performed By: #### C UU #### [address] Urinalysis - DIPSTICKon 06-05 Appearance (U) cloudy [employer] Other Bilirubin Ql (U) Negative [employer] Other Color (U) pale yellow [employer] Other Glucose Ql (U) Negative [employer] [facility] Other Hemoglobin Ql (U) non hem-trace [employer] Other Ketones Ql (U) trace [employer] [facility] Other Leukocyte esterase Test strip Ql (U) moderate [employer] Other Nitrite Ql (U) Negative [employer] Other pH (U) 5 [pH] [employer] Other Protein Ql (U) trace [employer] Other Specific gravity (U) [Rel density] 1.005 [employer] Other Urobilinogen (U) [Mass/Vol] normal [employer] Other Urinalysis - DIPSTICK [employer] Other CULTURE URINEon 06-11-2022 CULTURE URINE Isolate [...] F Trimethoprim/Sulfameth oxazole <=20 S F Normal [facility] Comment on above: Performed By: #### U RCX #### [facility] [address] [place] [address] Dr. Florencio Narayanan CARDIAC AMBER ADMITon 023 CK [Catalytic activity/Vol] 44 U/L Normal 26-192 [facility] Comment on above: Performed By: #### C MP, LIPA, CMADM #### [facility] [address] [place] [address] [address] Florencio Narayanan CK.MB [Mass/Vol] ng/mL Normal <=3.60 [facility] Comment on above: Performed By: #### C LILIAN LOZANO, CMADM #### [facility] [address] [place] [address] Dr. Florencio Narayanan HSTROP 14.6 pg/mL Normal 4.0-51.3 [facility] Comment on above: Result Comment: CUT- OFF POINTS HAVE BEEN ESTABLISHED BASED ON THE FOURTH UNIVERSAL DEFINITIONS OF MYOCARDIAL INFARCTION. THE UPPER REFERENCE LIMIT (URL) OF TROPONIN, DEFINED THE 99TH PERCENTILE OF cTnI DISTRIBUTION IN A REFERENCE POPULATION, HAS BEEN CONFIRMED THE DECISION THRESHOLD FOR DC DIAGNOSIS. Performed By: #### C LILIAN LOZANO, CMADM #### [facility] [address] [place] [address] Dr. Florencio Narayanan UMRE 109 ng/mL Critically high 9-82 [facility] Comment on above: Performed By: #### C LILIAN LOZANO, CMADM #### [facility] [address] [place] [address] Dr. Florencio Narayanan CBC AUTO DIFFon 06-09-2022 BASO # 0.1 103/ul Normal 0.0-0.1 [facility] Comment on above: Performed By: #### C BC #### [facility] [address] [place] [address] Dr. Florencio Narayanan Basophils/100 WBC (Bld) 0.4 % Normal 0.2-2.0 [facility] Comment on above: Performed By: #### C BC #### [facility] [address] [place] [address] Dr. Florencio Narayanan EO # 0.0 103/ul Normal 0.0-0.7 [facility] Comment on above: Performed By: #### C BC #### [facility] [address] [place] [address] Dr. Florencio Narayanan Eosinophils/100 WBC (Bld) 0.2 % Critically low 0.9-7.0 [facility] Comment on above: Performed By: #### C BC #### [facility] [address] [place] [address] Dr. Florencio Narayanan Erythrocyte distribution width (RBC) [Ratio] 12.3 % Normal 11.0-15.0 [facility] Comment on above: Performed By: #### C BC #### [facility] [address] [place] [address] Dr. Florecnio Narayanan Hematocrit (Bld) [Volume fraction] 38.4 % Normal 36.0-48.0 [facility] Comment on above: Performed By: #### C BC #### [facility] [address] [place] [address] Dr. Florencio Narayanan Hemoglobin (Bld) [Mass/Vol] 12.7 g/dL Normal 12.0-16.0 [facility] Comment on above: Performed By: #### C BC #### [facility] [address] [place] [address] Dr. Florencio Narayanan IG # 0.06 10e3/ul Critically high 0.00-0.03 [facility] Comment on above: Performed By: #### C BC #### [facility] [address] [place] [address] Dr. Florencio Narayanan IG % 0.5 % Normal 0.0-0.5 [facility] Comment on above: Performed By: #### C BC #### [facility] [address] [place] [address] Dr. Florencio Narayanan LYMPH # 1.0 103/ul Critically low 1.2-3.8 [facility] Comment on above: Performed By: #### C BC #### [facility] [address] [place] [address] Dr. Florencio Narayanan Lymphocytes/100 WBC (Bld) 8.4 % Critically low 20.5-60.0 [facility] Comment on above: Performed By: #### C BC #### [facility] [address] [place] [address] Dr. Florencio Narayanan MANUAL DIFF REQ NO Normal [facility] Comment on above: Performed By: #### C BC #### [facility] [address] [address] [address] Florencio Narayanan MCH (RBC) [Entitic mass] 32.4 pg Normal 26.7-34.0 The [facility] Comment on above: Performed By: #### C BC #### [facility] [address] [place] [address] Dr. Florencio Narayanan MCHC (RBC) [Mass/Vol] 33.1 g/dL Normal 29.9-35.2 The [facility] Comment on above: Performed By: #### C BC #### [facility] [address] [place] [address] Dr. Florencio Narayanan MCV (RBC) [Entitic vol] 98.0 fL Normal 81.0-99.0 The [facility] Comment on above: Performed By: #### C BC #### [facility] [address] [place] [address] Dr. Florencio Narayanan MONO # 1.6 103/ul Critically high 0.3-0.8 [facility] Comment on above: Performed By: #### C BC #### [facility] [address] [place] [address] Dr. Florencio Narayanan Monocytes/100 WBC (Bld) 13.1 % Critically high 1.7-12.0 [facility] Comment on above: Performed By: #### C BC #### [facility] [address] [place] [address] Dr. Florencio Narayanan NEUT # 9.5 103/ul Critically high 1.4-6.5 [facility] Comment on above: Performed By: #### C BC #### [facility] [address] [place] [address] Dr. Florencio Narayanan Neutrophils/100 WBC (Bld) 77.4 % Critically high 43.0-75.0 The [facility] Comment on above: Performed By: #### C BC #### [facility] [address] [place] [address] Dr. Florencio Narayanan Platelet mean volume (Bld) [Entitic vol] 9.4 fL Critically low 9.5-13.5 The [facility] Comment on above: Performed By: #### C BC #### [facility] [address] [place], [place] [address] Dr. Florencio Narayanan PLT 140 103/ul Critically low 150-450 [facility] Comment on above: Performed By: #### C BC #### [facility] [address] [place], [place] [address] Dr. Florencio Narayanan RBC 3.92 106/ul Critically low 4.20-5.40 [facility] Comment on above: Performed By: #### C BC #### [facility] [address] [place], [place] [address] Dr. Florencio Narayanan WBC 12.2 103/ul Critically high 4.0-11.0 The [facility] Comment on above: Performed By: #### C BC #### [facility] [address] [place], [place] [address] STROKE HEAD WOon [...] LUANA VILLAFANA Date: 2022-06-09 12:24 Normal The [facility]on SARS-CoV-2 (COVID-19) RNA CHRISTOPHER+probe Ql (Unsp spec) Not detected Normal NOT DETECTED The [facility] Comment on above: Result Comment: When [...] for this test is supported by the [employer] Access Developer of Health and Human Service's declaration that [...] longer be used). Performed By: #### [facility] #### [facility] [address] [place] [address] Dr. Florencio Narayanan ER URINE PROFILEon 3 Bilirubin Ql (U) Negative Normal NEGATIVE The [facility] Comment on above: Performed By: #### Malini PIZANO UMICRO #### [facility] [address] [place] [address] Dr. Florencio Narayanan Clarity (U) CLEAR Normal CLEAR The [facility] Comment on above: Performed By: #### Malini PIZANO UMICRO #### [facility] [address] [place] [address] Dr. Florencio Narayanan Color (U) LT. YELLOW Normal YELLOW [facility] Comment on above: Performed By: #### Malini PIZANO UMICRO #### [facility] [address] [place] [address] Dr. Florencio MEYEREvie A micrscopic examination will be performed if indicated. Normal The [facility] Comment on above: Performed By: #### Malini PIZANO UMICRO #### [facility] [address] [place] [address] Dr. Florencio Narayanan Glucose Ql (U) Negative Normal NEGATIVE [facility] Comment on above: Performed By: #### Malini PIZANO UMICRO #### [facility] [address] [place] [address] Dr. Florencio Narayanan Hemoglobin Ql (U) LARGE Abnormal NEGATIVE The [facility] Comment on above: Performed By: #### LIYAH LERO #### [facility] [address] [place] [address] Dr. Florencio Narayanan Ketones Ql (U) TRACE Abnormal NEGATIVE [facility] Comment on above: Performed By: #### Malini PIZANO UMICRO #### [facility] [address] [place] [address] Dr. Florencio Narayanan LEUKOCYTES LARGE Abnormal NEGATIVE [facility] Comment on above: Performed By: #### Malini PIZANO UMICRO #### [facility] [address] [place] [address] Dr. Florencio Narayanan Nitrite Ql (U) Positive Abnormal NEGATIVE [facility] Comment on above: Performed By: #### Malini PIZANO UMICRO #### [facility] [address] [place] [address] Dr. Florencio Narayanan pH (U) 5.5 [pH] Normal 5-9 [facility] Comment on above: Performed By: #### Malini PIZANO UMICRO #### [facility] [address] [place] [address] Dr. Florencio Narayanan SPEC GRAVITY 1.010 Normal 1.005-<=1.[address] [place] [address] Comment on above: Performed By: #### Malini PIZANO UMICRO #### [facility] [address] [place] [address] Dr. Florencio Narayanan UA PROTEIN TRACE Normal NEGATIVE/ TRACE [facility] Comment on above: Performed By: #### Malini PIZANO UMICRO #### [facility] [address] [place] [address] Dr. Florencio Narayanan UR MICRO IND INDICATED Normal [facility] Comment on above: Performed By: #### Malini PIZANO UMICRO #### [facility] [address] [place] [address] Dr. Florencio Narayanan Urobilinogen Qn (U) 0.2 {Zenia'U}/dL Normal 0.2 - 1. 0 [facility] Comment on above: Performed By: #### Malini PIZANO UMICRO #### [facility] [address] [place] [address] Dr. Florencio Narayanan LIPASEon 06-09-2022 Lipase [Catalytic activity/Vol] 68.0 U/L Critically low 73.0-393.0 [facility] Comment on above: Performed By: #### C MP LIPA, CMADM #### [facility] [address] [address] [address] Florencio Narayanan PROF 14(COMP METB)on 023 Albumin [Mass/Vol] 2.5 g/dL Critically low 3.4-5.0 [facility] Comment on above: Performed By: #### C MP, LIPA, CMADM #### [facility] [address] [place] [address] Dr. Florencio Narayanan Albumin/Globulin [Mass ratio] 0.6 {ratio} Normal [facility] Comment on above: Performed By: #### C MP, LIPA, CMADM #### [facility] [address] [place] [address] Dr. Florencio Narayanan ALP [Catalytic activity/Vol] 150 U/L Critically high 46-116 [facility] Comment on above: Performed By: #### C MP, LIPA, CMADM #### [facility] [address] [place] [address] Dr. Florencio Narayanan ALT [Catalytic activity/Vol] 27 U/L Normal 14-59 [facility] Comment on above: Performed By: #### C MP, LIPA, CMADM #### [facility] [address] [place] [address] Dr. Florencio Narayanan Anion gap [Moles/Vol] 12.8 mmol/L Normal [facility] Comment on above: Performed By: #### C MP, LIPA, CMADM #### [facility] [address] [place] [address] Dr. Florencio Narayanan AST [Catalytic activity/Vol] 31 U/L Normal 15-37 [facility] Comment on above: Performed By: #### C BLAKE, LIPA, CMADM #### [facility] [address] [address] [address] Florencio Narayanan Bilirubin [Mass/Vol] 1.1 mg/dL Critically high 0.2-1.0 [facility] Comment on above: Performed By: #### C MP, LIPA, CMADM #### [facility] [address] [address] [address] Florencio Narayanan Calcium [Mass/Vol] 9.1 mg/dL Normal 8.5-10.1 [facility] Comment on above: Performed By: #### C MP, LIPA, CMADM #### [facility] [address] [address] [address] Florencio Narayanan Chloride [Moles/Vol] 95 mmol/L Critically low 98-107 [facility] Comment on above: Performed By: #### C MP, LIPA, CMADM #### [facility] [address] [place] [address] Dr. Florencio Narayanan CO2 [Moles/Vol] 29.4 mmol/L Normal 21.0-32.0 [facility] Comment on above: Performed By: #### C MP, LIPA, CMADM #### [facility] [address] [place] [address] Dr. Florencio Narayanan Creatinine [Mass/Vol] 1.34 mg/dL Critically high 0.55-1.02 [facility] Comment on above: Performed By: #### C MP, LIPA, CMADM #### [facility] [address] [place] [address] Dr. Florencio Narayanan EGFR-AF PORTUGUESE 47 mL/min/1.73m2 Critically low >=60 [facility] Comment on above: Performed By: #### C MP, LIPA, CMADM #### [facility] [address] [address] [address] Florencio Narayanan EGFR-NON AF [place]UGUESE 39 mL/min/1.73m2 Critically low >=60 [facility] Comment on above: Performed By: #### C MP, LIPA, CMADM #### [facility] [address] [place] [address] Dr. Florencio Narayanan Globulin (S) [Mass/Vol] 4.3 g/dL Normal [facility] Comment on above: Performed By: #### C MP, LIPA, CMADM #### [facility] [address] [address] [address] Florencio Narayanan Glucose [Mass/Vol] 118 mg/dL Critically high 74-106 [facility] Comment on above: Performed By: #### C MP, LIPA, CMADM #### [facility] [address] [place] [address] Dr. Florencio Narayanan Potassium [Moles/Vol] 3.2 mmol/L Critically low 3.5-5.1 [facility] Comment on above: Performed By: #### C MP, LIPA, CMADM #### [facility] [address] [place] [address] Dr. Florencio Narayanan Protein [Mass/Vol] 6.8 g/dL Normal 6.4-8.2 [facility] Comment on above: Performed By: #### C MP, LIPA, CMADM #### [facility] [address] [place] [address] Dr. Florencio Narayanan Sodium [Moles/Vol] 134 mmol/L Critically low 136-145 [facility] Comment on above: Performed By: #### C MP, LIPA, CMADM #### [facility] [address] [place] [address] Dr. Florencio Narayanan Urea nitrogen [Mass/Vol] 29.0 mg/dL Critically high 7.0-18.0 [facility] Comment on above: Performed By: #### C MP, LIPA, CMADM #### [facility] [address] [place] [address] Dr. Florencio Narayanan Urea nitrogen/Creatinine [Mass ratio] 21.6 mg/mg Normal [facility] Comment on above: Performed By: #### C MP, LIPA, CMADM #### [facility] [address] [place] [address] Dr. Florencio Narayanan URINE MICROSCOPIC ONLYon BACTERIA SMALL Abnormal NONE SEEN [facility] Comment on above: Performed By: #### E ADIEL PIZANO #### [facility] [address] [address] [address] Florencio Narayanan Bacteria identified Cx Nom (U) INDICATED Normal [facility] Comment on above: Performed By: #### Malini PIZANO, UMICRO #### [facility] [address] [place] [address] Dr. Florencio Narayanan CAST NONE SEEN Normal NONE SEEN [facility] Comment on above: Performed By: #### E DANGELOR, UMICRO #### [facility] [address] [place] [address] Dr. Florencio Narayanan Crystals LM Nom (Urine sed) NONE SEEN Normal NONE SEEN The [facility] Comment on above: Performed By: #### E HARINDER, UMICRO #### [facility] [address] [place] [address] Dr. Florencio Narayanan Epithelial cells LM Ql (Urine sed) FEW Abnormal NONE SEEN /RARE The [facility] Comment on above: Performed By: #### Malini PIZANO, UMICRO #### [facility] [address] [place] [address] Dr. Florencio Narayanan MUCOUS NONE SEEN Normal NONE SEEN The [facility] Comment on above: Performed By: #### Malini PIZANO UMICRO #### [facility] [address] [place] [address] Dr. Florencio Narayanan RBC 2-5 Abnormal 0-2 [facility] Comment on above: Performed By: #### Malini PIZANO UMICRO #### [facility] [address] [place] [address] Dr. Florencio Narayanan WBC 10-20 Abnormal NONE SEEN [facility] Comment on above: Performed By: #### Malini PIZANO UMICRO #### [facility] [address] [place] [address] Dr. Florencio Narayanan XR CHEST 2 Von [...] acute cardiopulmonary process. Electronically authenticated by: JOAQUÍN CHUCKJONATHAN Date: 2022-06-09 12:24 Normal [facility] CULTURE URINEon 04-16-2022 CULTURE URINE Isolate [...] Trimethoprim/Sulfameth oxazole >=320 R F Normal [facility] Comment on above: Performed By: #### C #### [facility] [address] [place] [address] Dr. Florencio Narayanan MRI Hip w/o Righton [...] by Ramon Ambrocio on 09/11/2021 1545 Normal [facility] Columnist/Commentator Consult Reporton 03-14-2020 Consult Report [facility] BETTIE BURNS [id number] [id number] OBSV ANABEL WATKINS MD [id number] REFERRING PHYSICIAN: CONSULTING PHYSICIAN: Renetta Almanzar MD DATE OF CONSULTATION: 03/11/2020 REASON: A near syncopal event in a 74-year-old female, with a history of atrial fibrillation, previous cardiac ablation, who was the time of evaluation noted to have a positive test for COVID. HISTORY OF PRESENT ILLNESS: Mrs. Burns is a very pleasant, alert and oriented -[id number]-lsq female who was brought into the emergency [...] quarantine. Many thanks. RENETTA ALMANZAR MD BD/MedQ /[id number] Normal [facility] BASICMETAon 03-11-2020 GFR AA >60 Normal [facility] Comment on above: Result Comment: Afri [...] for drug dosing. Performed By: #### 1 29134, 729059, [id number] ####[facility] [address] [place] [address] Medical Director: Fahad Cast MD GFR/1.73 sq M predicted among non-blacks MDRD (S/P/Bld) [Vol rate/Area] 56 mL/min/1.73m? Normal [facility] Comment on above: Result Comment: Non [...] for drug dosing. Performed By: #### 1 50473, [id number], [id number] ####[facility] [address] [place] [address] Medical Director: Fahad Cast MD Osmolality [Osmolality] 291 mOsm/kg Normal 275-295 [facility] Comment on above: Performed By: #### 1 01988, 685869, 224947 ####[facility] [address] [place] [address] Medical Director: Fahad Cast MD Urea nitrogen/Creatinine [Mass ratio] 24.5 mg/mg Normal [facility] Comment on above: Performed By: #### 1 84656, 331747, 942884 ####[facility] [address] [place] [address] Medical Director: Fahad Cast MD Calcium [Mass/Vol] 9.3 mg/dL Normal 8.5-10.5 [facility] Comment on above: Performed By: #### 1 21329, 139509, 723476 ####[facility] [address] [place] [address] Medical Director: Fahad Cast MD Chloride [Moles/Vol] 108 mmol/L Normal 100-109 [facility] Comment on above: Performed By: #### 1 53565, 115574, 660153 ####[facility] [address] [place], [place] [address] Medical Director: Fahad Cast MD CO2, venous 28.9 mmol/L Normal 21.0-32.0 [facility] Comment on above: Performed By: #### 1 96038, 393263, 464920 ####[facility] [place] [address] Medical Director: Fahad Cast MD Creatinine [Mass/Vol] 1.0 mg/dL Normal 0.6-1.0 [facility] Comment on above: Performed By: #### 1 86900, 701265, 202182 ####[facility] [address] [place], [place] [address] Medical Director: Fahad Cast MD Glucose [Mass/Vol] 98 mg/dL Normal 72-100 [facility] Comment on above: Result Comment: Sharon puncture should occur prior to sulfasalazine administration due to the potential for falsely depressed results. Venipuncture should occur prior to sulfapyridine administration due to the potential falsely elevated results. Baseline assay values before administration of sulfasalazine and sulfapyridine therapy would not be affected. Performed By: #### 1 17113, 593338, 572008 ####[facility] [address] [id number]) [phone] Director: Fahad Cast MD Potassium [Moles/Vol] 4.2 mmol/L Normal 3.5-5.1 [facility] Comment on above: Performed By: #### 1 72414, 366874, 174206 ####[facility] [address] [place] [address] Medical Director: Fahad Cast MD Sodium [Moles/Vol] 144 mmol/L Normal 135-145 [facility] Comment on above: Performed By: #### 1 96057, 840527, 096266 ####[facility] [address] [place] [address] Medical Director: Fahad Cast MD Urea nitrogen [Mass/Vol] 24 mg/dL High 10-20 [facility] Comment on above: Performed By: #### 1 89745, 893835, 617417 ####[facility] [address] [place], [place] [id number]) [phone] Director: Fahad Cast MD CBCNDon 03-11-2020 Erythrocyte distribution width (RBC) [Ratio] 14.4 % Normal 11.5-14.5 [facility] Comment on above: Performed By: #### 1 52791, 305974, 813137 #### [facility] [address] [place] [address] Residential Youth Counselor: Fahad Cast MD Hematocrit (Bld) [Volume fraction] 33.9 % Low 36.0-46.0 [facility] Comment on above: Performed By: #### 1 91436, 812523, 971558 #### [facility] [address] [place] [address] Residential Youth Counselor: Fahad Cast MD Hemoglobin (Bld) [Mass/Vol] 11.2 g/dL Low 12.0-16.0 [facility] Comment on above: Performed By: #### 1 67408, 369489, 796178 #### [facility] [address] [place] [address] Residential Youth Counselor: Fahad Cast MD MCH (RBC) [Entitic mass] 29.5 pg Normal 27.0-34.0 [facility] Comment on above: Performed By: #### 1 17416, 089001, 853279 #### [facility] [address] [place] [address] Residential [employer] Counselor: Fahad Cast MD MCHC (RBC) [Mass/Vol] 33.0 g/dL Normal 32.0-37.0 [facility] Comment on above: Performed By: #### 1 36155, 550665, 882334 #### [facility] [address] [place] [address] Residential Youth Counselor: Fahad Cast MD MCV (RBC) [Entitic vol] 89.5 fL Normal 80.0-100.0 [facility] Comment on above: Performed By: #### 1 36961, 386831, 302604 #### [facility] [address] [place] [address] Residential Youth Counselor: Fahad Cast MD Platelet mean volume (Bld) [Entitic vol] 6.8 fL Low 7.4-10.4 [facility] Comment on above: Performed By: #### 1 23034, 128258, 746202 #### [facility] [address] [place] [address] Residential Youth Counselor: Fahad Cast MD Platelets (Bld) [#/Vol] 232 x1000 Normal 150-450 [facility] Comment on above: Performed By: #### 1 77640, 604697, 982914 #### [facility] [address] [place] [address] Residential Youth Counselor: Fahad Cast MD RBC (Bld) [#/Vol] 3.79 x10 Low 4.20-5.40 [facility] Comment on above: Result Comment: Note : RBC morphology is normal unless otherwise stated. Evaluation performed only if differential is requested. Performed By: #### 1 60609, 893179, 798417 #### [facility] [address] [place] [address] Residential Youth Counselor: Fahad Cast MD WBC (Bld) [#/Vol] 5.8 10*3/uL Normal [facility] Comment on above: Performed By: #### 1 19322, 618560, 344308 #### [facility] [address] [place] [address] Residential Youth Counselor: Fahad Cast MD WBC (Bld) [#/Vol] 5.8 x10 Normal 4.5-11.0 [facility] Comment on above: Performed By: #### 1 27546, 903429, 339608 #### [facility] [address] [place] [address] Residential Youth Counselor: Fahad Cast MD D Dimer HSon 03-11-2020 D Dimer HS 821 ng/mL FEU High <=499 [facility] Comment on above: Result Comment: Excl usion of PE and DVT The D Dimer HS assay is reported in ng/ml Fibrinogen Equivalent Units (FEU). Per school superintendent?s instructions for use, a value less than 500ng/ml (FEU) may help to exclude DVT and /or PE in outpatients when the assay is used with a clinical pretest probability assessment. D-Dimer used for DIC Screens Assay results should be used with other information, including the clinical context in forming a diagnosis. Performed By: #### C [id number] ####[facility] [address] [place] [address] Medical Director: Fahad Cast MD LDHon 03-11-2020 LDH 198 unit/L Normal 84-246 [facility] Comment on above: Performed By: #### 1 41859, 537251, [id number] #### [facility] [address] [place] [address] Residential Youth Counselor: Fahad Cast MD Progress Note-Physicianon Progress Note-Physician [...] medications. 6) DVT ppx: On Eliquis Normal [facility] Utilization Review Noteon Utilization Review Note ID Consult pending DISCHARGE WRITTEN AND PLANNED. Normal [facility] AUTO DIFFon 03-10-2020 Basophils (Bld) [#/Vol] 0.05 x1000 Normal 0.00-0.20 [facility] Comment on above: Performed By: #### 1 03997, 352086, [id number] ####[facility] [address] [place] [id number] Medical Director: Fahad Cast MD Basos % 0.6 % [facility] Comment on above: Performed By: #### 1 , 483233, 3417355 ####[facility] [address]odyqrk[address] [place] 4529630 Medical Director: Fahad Cast MD Eos Count 0.15 x1000 Normal 0.00-0.50 [facility] Comment on above: Performed By: #### 1 89479, 951987, 0991660 ####[facility] Iepbllab97104 [place] [address] Medical Director: Fahad Cast MD Eosinophils/100 WBC (Bld) 1.8 % Normal [facility] Comment on above: Performed By: #### 1 , 192695, [id number] ####[facility] Wksalhwt60918 [place] [address] Medical Director: Fahad Cast MD Lymphocytes (Bld) [#/Vol] 1.05 x1000 Low 1.20-4.80 [facility] Comment on above: Performed By: #### 1 61500, 014488, 1560798 ####[facility] Y[address]ewsidy795[address] [place] [address] Medical Director: Fahad Cast MD Lymphocytes/100 WBC (Bld) 12.7 % Normal [facility] Comment on above: Performed By: #### 1 48146, 195844, 5739422 ####[facility] Eeb[address]jznv56119 [place] [address] Medical Director: Fahad Cast MD [place] Count 0.70 x1000 Normal 0.10-1.00 [facility] Comment on above: Performed By: #### 1 08984, 420737, 0159785 ####[facility] Izaqvjfq48780 [place] [address] Medical Director: Fahad Cast MD Monocytes/100 WBC (Bld) 8.4 % Normal [facility] Comment on above: Performed By: #### 1 97639, 639919, 0656879 ####[facility] [address]foz[address] [place] 4529630 Medical Director: Fahad Cast MD Neutrophils (Bld) [#/Vol] 6.32 x1000 Normal 1.40-8.80 [facility] Comment on above: Performed By: #### 1 88672, 099341, 6538188 ####[facility] Waxuginm35278 [place] [address] Medical Director: Fahad Cast MD Neutrophils/100 WBC (Bld) 76.4 % Normal [facility] Comment on above: Performed By: #### 1 93199, 780826, 9632548 ####[facility] Iotlzeik77387 [place] [address] Medical Director: Fahad Cast MD COMPMETAon 03-10-2020 Albumin [Mass/Vol] 3.4 g/dL Normal 3.4-5.0 [facility] Comment on above: Performed By: #### 1 72608, 430281, 4757938 ####[facility] Mrxdaeog56688 [place] [address] Medical Director: Fahad Cast MD Albumin/Globulin [Mass ratio] 0.8 {ratio} Normal [facility] Comment on above: Performed By: #### 1 88904, 722614, 1306736 ####[facility] Wjqaucfg51406 [place] [address] Medical Director: Fahad Cast MD Alk Phos 71 unit/L Normal 45-117 [facility] Comment on above: Performed By: #### 1 62548, 307221, 3620946 ####[facility] Bntqwnpk39705 [place] [address] Medical Director: Fahad Cast MD Bilirubin [Mass/Vol] 0.37 mg/dL Normal 0.20-1.00 [facility] Comment on above: Result Comment: Use of this assay is not recommended for patients undergoing treatment with eltrombopag due to the potential for falsely elevated results. Performed By: #### 1 57139, 440319, 5606674 ####[facility] [address]zmsojbt77234 [place] [address] Medical Director: Fahad Cast MD Calcium [Mass/Vol] 9.4 mg/dL Normal 8.5-10.5 [facility] Comment on above: Performed By: #### 1 94381, 857224, 3602538 ####[facility] Aglvboyu18632 [place] [address] Medical Director: Fahad Cast MD Chloride [Moles/Vol] 108 mmol/L Normal 100-109 [facility] Comment on above: Performed By: #### 1 81146, 830067, 8831025 ####[facility] [address]jdgaqgd01683 [place] [address] Medical Director: Fahad Cast MD CO2, venous 28.2 mmol/L Normal 21.0-32.0 [facility] Comment on above: Performed By: #### 1 83906, 567786, 8463093 ####[facility] [address]hltkhp11251 [place] [address] Medical Director: Fahad Cast MD Creatinine [Mass/Vol] 1.2 mg/dL High 0.6-1.0 [facility] Comment on above: Performed By: #### 1 72591, 785014, 8086492 ####[facility] [address]qepyhm50[address] [place] [address] Medical Director: Fahad Cast MD GFR AA 53 [facility] Comment on above: Result Comment: [...] for drug dosing. Performed By: #### 1 35219, 024467, 2993002 ####[facility] Svryqglu17215 [place], [place] [id number]) [phone] Director: Fahad Cast MD GFR/1.73 sq M predicted among non-blacks MDRD (S/P/Bld) [Vol rate/Area] 44 mL/min/1.73m? [facility] Comment on above: Result Comment: [...] for drug dosing. Performed By: #### 1 64909, 293010, 5113734 ####[facility] Iuqlxwla21733 [place] [address] Medical Director: Fahad Cast MD Globulin (S) [Mass/Vol] 4.0 g/dL [facility] Comment on above: Performed By: #### 1 11491, 361707, 7110579 ####[facility] Mfhzvplc78686 [place] [address] Medical Director: Fahad Cast MD Glucose [Mass/Vol] 143 mg/dL High 72-100 [facility] Comment on above: Result Comment: Sharon puncture should occur prior to sulfasalazine administration due to the potential for falsely depressed results. Venipuncture should occur prior to sulfapyridine administration due to the potential falsely elevated results. Baseline assay values before administration of sulfasalazine and sulfapyridine therapy would not be affected. Performed By: #### 1 82353, 537750, 2918882 ####[facility] [address]uy[address]bqu624[address] [place], [place] [id number]) [phone] Director: Fahad Cast MD GOT 18 unit/L Normal 15-37 [facility] Comment on above: Result Comment: Sharon puncture should occur prior to sulfasalazine and/or sulfapyridine administration due to the potential for falsely depressed results. Baseline assay values before administration of sulfasalazine and sulfapyridine therapy would not be affected. Performed By: #### 1 96618, 729175, 6874537 ####[facility] Nkvqajsq20061 [place], [place] [id number]) [phone] Director: Fahad Cast MD GPT 19 unit/L Normal 13-56 [facility] Comment on above: Result Comment: Sharon puncture should occur prior to sulfasalazine and/or sulfapyridine administration due to the potential for falsely depressed results. Baseline assay values before administration of sulfasalazine and sulfapyridine therapy would not be affected. Performed By: #### 1 79548, 072467, 6283134 ####[facility] Kwsmavwz29066 [place], [place] [id number]) [phone] Director: Fahad Cast MD Osmolality [Osmolality] 293 mOsm/kg Normal 275-295 [facility] Comment on above: Performed By: #### 1 15841, 313049, 9796149 ####[facility] Hcxftyir86296 [place], [place] [address]) [phone] Director: Fahad Cast MD Potassium [Moles/Vol] 4.0 mmol/L Normal 3.5-5.1 [facility] Comment on above: Performed By: #### 1 88610, 210940, 0238305 ####[facility] Alpbccns49919 [place] [address] Medical Director: Fahad Cast MD Protein [Mass/Vol] 7.4 g/dL Normal 6.0-8.5 [facility] Comment on above: Performed By: #### 1 07628, 681655, 0324346 ####[facility] [address]svdvlqm76744 [place] [address] Medical Director: Fahad Cast MD Sodium [Moles/Vol] 142 mmol/L Normal 135-145 [facility] Comment on above: Performed By: #### 1 69448, 979955, 4289838 ####[facility] [address]wnoeezi59493 [place] [address] Medical Director: Fahad Cast MD Urea nitrogen [Mass/Vol] 32 mg/dL High 10-20 [facility] Comment on above: Performed By: #### 1 43916, 537687, 3931229 ####[facility] Jirfkjpd09758 [place] [address] Medical Director: Fahad Cast MD Urea nitrogen/Creatinine [Mass ratio] 26.7 mg/mg Normal [facility] Comment on above: Performed By: #### 1 27569, 618364, 5029378 ####[facility] Laregmjg41835 [place] [address] Medical Director: Fahad Cast MD COVID-19 by PCR Darling 03-10 COVID-19 by PCR [facility] Comment on above: Result Comment: CALL DEANNA SEPULVEDA PRATIK 03/10/2020 18:23:22 EST BY SHF; RBR Performed By: #### C [id number] ####[facility] [address]sfbmfgb04602 [place] [address] Medical Director: Fahad Cast MD CRP QUANTon 03-10-2020 C-Reactive Protein, Quantitative 0.8 mg/dL High 0.0-0.3 [facility] Comment on above: Performed By: #### 1 28194, [id number], [id number], [id number] #### [facility] [address] [place] [address] Residential Youth Counselor: Fahad Cast MD CT ABD PELVIS W [...] by: Oni Liu MD 03/10/2020 3:50 PM [facility] Technologist: LIEN BLANCA Dictated By: ONI LIU MD Signed By: ONI LIU MD Signed Out: 03/10/20 16:50:49 Normal [facility] D Dimer HSon 03-10-2020 D Dimer HS 264 ng/mL FEU Normal <=499 [facility] Comment on above: Result Comment: Excl usion of PE and DVT The D Dimer HS assay is reported in ng/ml Fibrinogen Equivalent Units (FEU). Per school superintendent?s instructions for use, a value less than 500ng/ml (FEU) may help to exclude DVT and /or PE in outpatients when the assay is used with a clinical pretest probability assessment. D-Dimer used for DIC Screens Assay results should be used with other information, including the clinical context in forming a diagnosis. Performed By: #### 1 54300, [id number], [id number], [id number] #### [facility] [address] [place] [address] Residential Youth Counselor: Fahad Cast MD ED Physician Reporton 2019 ED Physician Report Patient: BETTIE BURNS [facility]: [id number] Age: 74 years Sex: Female : 1945 [...] Line Saline Flush: 3 mL, IV Push, [id number] Documented Medications Documented Eliquis 5 mg oral [...] Interp, Sinus rhythm with first-degree AV block, AK interval 256, QT/QTc/433, incomplete right bundle branch [...] /100WBC NA Lymph % 12.7 % NA [place] % 8.4 % NA Neutrophil % 76.4 % NA Eosin % 1.8 % NA Basos % 0.6 % NA Lymph Count 1.05 x1000 LOW [place] Count 0.70 x1000 NORMAL Neutrophil Count (ANC) [...] by: Monae Hernandez MD 03/10/2020 1:58 PM INDEPENDENT DRIVER Signed By: MONAE HERNANDEZ MD CT ABD [...] by: Oni Liu MD 03/10/2020 3:50 PM INDEPENDENT DRIVER Signed By: ONI LIU MD . Notes: [...] Course: improving. Impression and Plan Diagnosis Syncope ([id number] R55, Working, Medical) Plan Condition: Stable. Disposition: [...] accurately records my words and actions.. Normal [facility] ED Pre-Arrival Formon 2019 ED Pre-Arrival Form Pre-Arrival Summary Name: AYAN, Current Date: 03/10/2020 13:52:19 EST Gender: Date of : Age: Pre-Arrival Type: EMS ETA: 03/10/2020 14:15:00 EST Primary Care Physician: Presenting Problem: Pre-Arrival User: Neil Vázquez RN Referring Source: Location: [address] [place] [address] Emergency [address] [place] [address] Notes: Vital Signs: Doctor Call Back: DNR Status: Miscellaneous Issues: Normal [facility] ED Progress Noteon 0 ED Progress Note report not put in by previous rn pt here for syncopal episode after diarrhea episode pt has hx of afib. pt covid+ report called to neil silva will come get pt Normal [facility] FERRITINon 03-10-2020 Ferritin [Mass/Vol] 32 ng/mL Normal 8-252 [facility] Comment on above: Performed By: #### 1 37492, [id number], [id number], [id number] #### [facility] Services [address] [place] [id number] Residential Youth Counselor: Fahad Cast MD HEMOon 03-10-2020 DIFF? No Normal [facility] Comment on above: Performed By: #### 1 40947, 864252, 0583225 ####[facility] Wuuqghst67490 [place] [address] Medical Director: Fahad Cast MD Erythrocyte distribution width (RBC) [Ratio] 14.5 % Normal .5-14.5 [facility] Comment on above: Performed By: #### 1 69005, 910885, 5240153 ####[facility] Rptmfwsx20141 [place] [address] Medical Director: Fahad Cast MD Hematocrit (Bld) [Volume fraction] 35.8 % Low 36.0-46.0 [facility] Comment on above: Performed By: #### 1 68240, 680319, 8073484 ####[facility] Vvgxxswq05762 [place], [place] [id number]) [phone] Director: Fahad Cast MD Hemoglobin (Bld) [Mass/Vol] 11.7 g/dL Low 12.0-16.0 [facility] Comment on above: Performed By: #### 1 56496, 427123, 7589502 ####[facility] Lfktskvp92724 [place] [address] Medical Director: Fahad Cast MD MCH (RBC) [Entitic mass] 29.4 pg Normal 27.0-34.0 [facility] Comment on above: Performed By: #### 1 85376, 101954, 3740074 ####[facility] Xtqedfap23352 [place] [address] Medical Director: Fahad Cast MD MCHC (RBC) [Mass/Vol] 32.7 g/dL Normal 32.0-37.0 [facility] Comment on above: Performed By: #### 1 55165, 002525, 5521665 ####[facility] Lgyxrcvt91513 [place], [place] [address]) [phone] Director: Fahad Cast MD MCV (RBC) [Entitic vol] 89.8 fL Normal 80.0-100.0 [facility] Comment on above: Performed By: #### 1 55668, 178009, 7791086 ####[facility] Kmcpevsc11639 [place] [address] Medical Director: Fahad Cast MD Nucleated RBC (Bld) [#/Vol] 0 /100WBC Normal [facility] Comment on above: Performed By: #### 1 20001, 152569, 6959580 ####[facility] Pvoidbid51616 [place] [address] Medical Director: Fahad Cast MD Platelet mean volume (Bld) [Entitic vol] 6.7 fL Low 7.4-10.4 [facility] Comment on above: Performed By: #### 1 , 699410, 4690912 ####[facility] Hqufhcgb20010 [place] [address] Medical Director: Fahad Cast MD Platelets (Bld) [#/Vol] 252 x1000 Normal 150-450 [facility] Comment on above: Performed By: #### 1 , 254085, 8156477 ####[facility] Uxjcatgk13412 [place] [address] Medical Director: Fahad Cast MD RBC (Bld) [#/Vol] 3.99 x10 Low 4.20-5.40 [facility] Comment on above: Result Comment: Note : RBC morphology is normal unless otherwise stated. Evaluation performed only if differential is requested. Performed By: #### 1 , 987911, 2122053 ####[facility] Pctiygmy17162 [place] [address] Medical Director: Fahad Cast MD WBC (Bld) [#/Vol] 8.3 10*3/uL Normal [facility] Comment on above: Performed By: #### 1 15804, 755777, 6382140 ####[facility] Qhrhgymv66373 [place] [address] Medical Director: Fahad Cast MD WBC (Bld) [#/Vol] 8.3 x10 Normal 4.5-11.0 [facility] Comment on above: Performed By: #### 1 93380, 941667, 6113207 ####[facility] Jevszqda28296 [place] [address] Medical Director: Fahad Cast MD History and [...] 10 14:) SBP 105 mmHg (MAR 10 16:) DBP [...] ppx: On Eliquis OT MESA on Normal [facility] LACTATEon 03-10-2020 Lactate [Moles/Vol] 1.8 mmol/L Normal 0.4-2.0 [facility] Comment on above: Performed By: #### 1 36383 #### [facility] [address] [place] [address] Residential Youth Counselor: Fahad Cast MD LIPon 03-10-2020 Lipase [Catalytic activity/Vol] 135 unit/L Normal 73-393 [facility] Comment on above: Performed By: #### 1 80656, 276863, 732390 ####[facility] Hsufzabb20203 [place] [address] Medical Director: Fahad Cast MD MG LEVELon 03-10-2020 Magnesium [Mass/Vol] 1.9 mg/dL Normal 1.6-2.6 [facility] Comment on above: Performed By: #### 1 31164, 475511, 551867 ####[facility] Wkkkfnlj53690 [place] [address] Medical Director: Fahad Cast MD PCTon 03-10-2020 Procalcitonin <0.05 Normal [facility] Comment on above: Result Comment: INTE [...] or septic shock. Performed By: #### 1 01753, [id number], [id number], [id number] #### [facility] [address] [place] [address] Residential Youth Counselor: Fahad Cast MD TROPONINon 03-10-2020 Troponin I.cardiac [Mass/Vol] ng/mL Normal 0.000-0.099 [facility] Comment on above: Result Comment: This test is a quantitative determination of cardiac troponin I. High levels of serum biotin may interfere with this test. Performed By: #### 1 88954, 759879, 822691 ####[facility] Mncxgxsa63564 [place] [address] Medical Director: Fahad Cast MD XR CHEST [...] by: Monae Hernandez MD 03/10/2020 1:58 PM INDEPENDENT DRIVER Technologist: THANG JAMES Dictated By: MONAE HERNANDEZ MD Signed By: MONAE HERNANDEZ MD Signed Out: 03/10/20 14:58:26 Normal [facility] Vital Signs Date Time Vital Sign Value Performing Clinician Facility 11-08-2024 08:34-0400 Body height 165.1 cm Radha Mart SOLE MOLDING MACHINE OPERATOR-HEREDITARY CANCER PROGRAM COORDINATOR Work Phone: [employer] 11-08-2024 08:34-0400 Body mass index (BMI) [Ratio] 29.62 kg/m2 Radha HANEY Work Phone: [employer] 11-08-2024 08:34-0400 Body weight 80.74 kg Radha HANEY [facility] Phone[facility] 11-08-2024 08:34-0400 Diastolic blood pressure 78 mm[Hg] Radha HANEY Work Phone: [facility] 11-08-2024 08:34-0400 Heart rate 55 /min Radha HANEY Work Phone: [employer] 11-08-2024 08:34-0400 SaO2% (BldA) [Mass fraction] 96 % Radha HANEY Work Phone: [employer] 11-08-2024 08:34-0400 Systolic blood pressure 130 mm[Hg] Radha HANEY Work Phone: [facility] [employer] 07-14-2024 13:15-0400 Body height 165.1 cm Paula HANEY Work Phone: [employer] [facility] 07-14-2024 13:15-0400 Body mass index (BMI) [Ratio] 27.96 kg/m2 Paula Barrera APRN-AUSTEN Work Phone: [employer] [facility] 07-14-2024 13:15-0400 Body weight 76.2 kg Paula HANEY Work Phone: [facility] 06-22-2024 12:54-0500 Blood Pressure Location [facility] E [facility] 06-22-2024 12:54-0500 Diastolic blood pressure 55 mm[Hg] Maria E Osman [facility] 06-22-2024 12:54-0500 Heart rate 56 /min Maria E Osman [facility] 06-22-2024 12:54-0500 Respiratory rate 18 /min Maria E Osman [facility] 06-22-2024 12:54-0500 Systolic blood pressure 125 mm[Hg] [facility] E [facility] 05-09-2024 09:17-0500 Body height 165.1 cm [facility] 05-09-2024 09:17-0500 Body mass index (BMI) [Ratio] 29.1 kg/m2 [facility] 05-09-2024 09:17-0500 Body weight 79.37 kg [facility] 05-09-2024 09:17-0500 Diastolic blood pressure 70 mm[Hg] [facility] 05-09-2024 09:17-0500 Heart rate 58 /min [facility] 05-09-2024 09:17-0500 Systolic blood pressure 116 mm[Hg] [facility] 04-30-2024 10:29-0500 Body height 165.1 cm [facility] 04-30-2024 10:29-0500 Body mass index (BMI) [Ratio] 29.1 kg/m2 [facility] 04-30-2024 10:29-0500 Body temperature 99.2 [degF] [facility] 04-30-2024 10:29-0500 Body weight 79.43 kg [facility] 04-30-2024 10:29-0500 Diastolic blood pressure 75 mm[Hg] [facility] 04-30-2024 10:29-0500 Heart rate 58 /min [facility] 04-30-2024 10:29-0500 Respiratory rate 16 /min [facility] 04-30-2024 10:29-0500 SaO2% (BldA) [Mass fraction] 94 % [facility] 04-30-2024 10:29-0500 Systolic blood pressure 146 mm[Hg] [facility] 02-01-2024 11:13-0400 Body height 165.1 cm [facility] 02-01-2024 11:13-0400 Body mass index (BMI) [Ratio] 28.3 kg/m2 [facility] 02-01-2024 11:13-0400 Body weight 77.11 kg [facility] 02-01-2024 11:13-0400 Diastolic blood pressure 72 mm[Hg] [facility] 02-01-2024 11:13-0400 Heart rate 60 /min [facility] 02-01-2024 11:13-0400 Systolic blood pressure 134 mm[Hg] [facility] 11-26-2023 14:08-0400 Body height 165.1 cm Miko Ohara MD Work Phone: [facility] 11-26-2023 14:08-0400 Body mass index (BMI) [Ratio] 27.96 kg/m2 Miko Ohara MD Work Phone: [facility] 11-26-2023 14:08-0400 Body temperature 97 [degF] Miko Ohara MD Work Phone: [facility] 11-26-2023 14:08-0400 Body weight 76.2 kg Miko Ohara MD Work Phone: [facility] 11-26-2023 09:56-0400 Body height 165.1 cm Mainor Post MD Work Phone: [facility] 11-26-2023 09:56-0400 Body mass index (BMI) [Ratio] 28.12 kg/m2 Mainor Post MD Work Phone: [facility] 11-26-2023 09:56-0400 Body weight 76.66 kg Mainor Post MD Work Phone: [facility] 11-26-2023 09:56-0400 Diastolic blood pressure 76 mm[Hg] Mainor Post MD Work Phone: [facility] 11-26-2023 09:56-0400 Heart rate 56 /min Mainor Post MD Work Phone: [facility] 11-26-2023 09:56-0400 Systolic blood pressure 124 mm[Hg] Mainor Post MD Work Phone: [facility] 10-28-2023 08:41-0400 Body height 165.1 cm [facility] 10-28-2023 08:41-0400 Body mass index (BMI) [Ratio] 27.9 kg/m2 [facility] 10-28-2023 08:41-0400 Body weight 76.2 kg [facility] 10-28-2023 08:41-0400 Diastolic blood pressure 68 mm[Hg] [facility] 10-28-2023 08:41-0400 Heart rate 58 /min [facility] 10-28-2023 08:41-0400 Systolic blood pressure 106 mm[Hg] [facility] 08-20-2023 14:38-0400 Body height 165.1 cm Divine [employer] Work Phone: [facility] 08-20-2023 14:38-0400 Body mass index (BMI) [Ratio] 27.96 kg/m2 [facility] [employer] Work Phone: [facility] 08-20-2023 14:38-0400 Body weight 76.2 kg Divine [employer] Work Phone: [employer] [facility] 07-23-2023 14:45-0400 Body height 165.1 cm Divine Cl[facility] Work Phone: [employer] [facility] 07-23-2023 14:45-0400 Body mass index (BMI) [Ratio] 27.96 kg/m2 Divine [facility] [facility] Work Phone: [employer] [facility] 07-23-2023 14:45-0400 Body weight 76.2 kg Divine [facility] Work Phone: [facility] 2023 15:34-0500 Body temperature 97.9 [degF] Miko Ohara MD Work Phone: [facility] [employer] [facility] 2023 15:34-0500 Diastolic blood pressure 53 mm[Hg] Miko Ohara MD Work Phone: [facility] 2023 15:34-0500 Heart rate 80 /min Miko Ohara MD Work Phone: [facility] 2023 15:34-0500 Respiratory rate 16 /min Miko Ohara MD Work Phone: [facility] 2023 15:34-0500 SaO2% (BldA) [Mass fraction] 98 % Miko Ohara MD Work Phone: [facility] 2023 15:34-0500 Systolic blood pressure 110 mm[Hg] Miko Ohara MD Work Phone: [facility] 07-07-2023 16:39-0500 Body height 165.1 cm Miko Ohara MD Work Phone: [facility] [employer] [facility] 07-07-2023 16:39-0500 Body mass index (BMI) [Ratio] 28.02 kg/m2 Miko Ohara MD Work Phone: [facility] [employer] [facility] 07-07-2023 16:39-0500 Body weight 76.39 kg Miko Ohara MD Work Phone: [facility] [employer] [facility] 06-18-2023 14:31-0500 Body height 165.1 cm Miko Ohara MD Work Phone: [facility] 06-18-2023 14:31-0500 Body mass index (BMI) [Ratio] 28.12 kg/m2 Miko Ohara MD Work Phone: [facility] [employer] [facility] 06-18-2023 14:31-0500 Body weight 76.66 kg Miko Ohara MD Work Phone: [facility] 06-02-2023 11:19-0500 Body height 165.1 cm Mundo Diaz MD Work Phone: [facility] 06-02-2023 11:19-0500 Body mass index (BMI) [Ratio] 28.12 kg/m2 Mundo Diaz MD Work Phone: [employer] 06-02-2023 11:19-0500 Body weight 76.66 kg Mundo Diaz MD Work Phone: [employer] 06-02-2023 11:19-0500 Diastolic blood pressure 68 mm[Hg] [facility]2023 11:19-0500 Heart rate 62 /min Mundo Diaz MD [facility]: [facility] 06-02-2023 11:19-0500 SaO2% (BldA) [Mass fraction] 99 % Mundo Diaz MD Work Phone: [employer] 06-02-2023 11:19-0500 Systolic blood pressure 106 mm[Hg] Mundo Diaz MD [facility]: [facility] 05-14-2023 09:38-0500 Body height 165.1 cm Miko Ohara MD Work Phone: [employer] [facility] 05-14-2023 09:38-0500 Body mass index (BMI) [Ratio] 29.12 kg/m2 Miko Ohara MD Work Phone: [email or web address] 05-14-2023 09:38-0500 Body temperature 98.2 [degF] Miko Ohara MD Work Phone: [email or web address] 05-14-2023 09:38-0500 Body weight 79.38 kg Miko Ohara MD Work Phone: [email or web address] 10-30-2022 14:45-0400 Body height 165.1 cm Elliot Starks Other [employer] Other 10-30-2022 14:45-0400 Body mass index (BMI) [Ratio] 28.4 kg/m2 Elliot Starks Other [employer] Other 10-30-2022 14:45-0400 Body weight 77.43 kg Elliot Starks Other [employer] Other 10-30-2022 14:45-0400 Diastolic blood pressure 66 mm[Hg] Elliot Starks Other [employer] Other 10-30-2022 14:45-0400 Systolic blood pressure 123 mm[Hg] Elliot Starks Other [employer] Other 06-04-2022 11:30-0500 Body height 165.1 cm Elliot Starks Other [employer] Other 06-04-2022 11:30-0500 Body mass index (BMI) [Ratio] 28.29 kg/m2 Elliot Starks Other [employer] Other 06-04-2022 11:30-0500 Body weight 77.11 kg Elliot Starks Other [employer] Other 06-04-2022 11:30-0500 Diastolic blood pressure 64 mm[Hg] Elliot Starks Other [employer] Other 06-04-2022 11:30-0500 SaO2% (BldA) [Mass fraction] 99 % Elliot Starks Other [employer] Other 06-04-2022 11:30-0500 Systolic blood pressure 104 mm[Hg] Elliot Starks Other [employer] Other Encounters Encounter Date Encounter Type Care Provider Facility Start: 01-25-2025 anthony Osman Facility:[facility] Start: 12-27-2024 End: 12-27-2024 Natalie Espinal MD Work Phone: [facility] Start: 12-27-2024 End: 12-27-2024 Bamboo flowsheet Radha Espinal MD Work Phone: [facility] Start: 12-27-2024 End: 12-27-2024 Patient encounter procedure Radha Espinal MD Work Phone: [facility] Comment on above: Seborrheic keratosis , inflamed (Primary Dx); Inflamed skin tag; Milia Med Refill Start: 12-27-2024 End: 12-27-2024 ambulatory RADHA ESPINAL Not Available Start: 12-18-2024 End: 12-19-2024 Emergency department patient visit ELLIOT STARKS Facility:[facility] Start: 12-05-2024 End: 12-05-2024 ambulatory Daisy Liz MD Facility:[facility] Start: 11-29-2024 End: 11-29-2024 ambulatory Elliot Starks MD Work Phone: [facility] Work Phone: Start: 11-29-2024 End: 11-29-2024 Patient encounter procedure Elliot Starks MD [facility] Work Phone: Start: 11-24-2024 End: 11-29-2024 Refill Jack Smith SOLE MOLDING MACHINE OPERATOR-HEREDITARY CANCER PROGRAM COORDINATOR Work Phone: [facility] Comment on above: Med Refill Start: 11-09-2024 ambulatory [facility] Start: 11-08-2024 ambulatory [facility] Start: 11-08-2024 End: 11-08-2024 Office outpatient visit 15 minutes Radha Mart SOLE MOLDING MACHINE OPERATOR-HEREDITARY CANCER PROGRAM COORDINATOR Work Phone: [facility] Comment on above: Paroxysmal atrial fi brillation (CMS-HCC) (Primary Dx); Primary hypertension; Palpitations Start: 11-08-2024 End: 11-16-2024 ambulatory RADHA [facility] Comment on above: Med Refill Start: 11-01-2024 End: 11-03-2024 Refill Divine Kaur SOLE MOLDING MACHINE OPERATOR-HEREDITARY CANCER PROGRAM COORDINATOR Work Phone: [facility] Comment on above: Med Refill Start: 10-31-2024 End: 10-31-2024 ambulatory Daisy Liz MD Facility:[facility] Start: 10-26-2024 End: 10-26-2024 ambulatory Alfreda Miller Facility:[facility] Start: 10-26-2024 End: 10-26-2024 Patient encounter procedure Maria E Jacqui [facility] Start: 09-19-2024 End: 09-19-2024 ambulatory Alfreda MLobo Moraese Facility:[facility] Start: 09-19-2024 End: 09-19-2024 Patient encounter procedure Alfreda Moraese [facility] Start: 09-12-2024 End: 09-12-2024 ambulatory Jean Pierre MARTE Facility:[facility] Start: 09-12-2024 End: 09-12-2024 ambulatory Alfreda MLobo Lue Facility:[facility] Start: 09-12-2024 End: 09-12-2024 Patient encounter procedure Alfreda Moraese [facility] Start: 08-22-2024 End: 08-22-2024 ambulatory Daisy Liz MD Facility:[facility] Start: 08-07-2024 End: 08-10-2024 Refill Vinicio Causey PA-C Work Phone: [facility] Comment on above: Med Refill Start: 08-03-2024 End: 08-04-2024 Refill Rosangela Montague SOLE MOLDING MACHINE OPERATOR-HEREDITARY CANCER PROGRAM COORDINATOR Work Phone: [facility] Comment on above: Med Refill Start: 07-27-2024 End: 07-28-2024 Refill Sander Pollack RN [facility] Comment on above: Med Refill Start: 07-20-2024 End: 07-27-2024 Refill Miko Vasquez SOLE MOLDING MACHINE OPERATOR-HEREDITARY CANCER PROGRAM COORDINATOR Work Phone: [facility] Comment on above: Med Refill Start: 07-20-2024 ambulatory Alfreda Miller Facility[facility] Start: 07-14-2024 End: 07-14-2024 Postop follow up visit related to original px Paula Barrera SOLE MOLDING MACHINE OPERATOR-HEREDITARY CANCER PROGRAM COORDINATOR Work Phone: [facility] Comment on above: Hx of total hip arth roplasty, right (Primary Dx) Start: 07-14-2024 End: 07-14-2024 Subsequent hospital visit by physician Paula Barrera SOLE MOLDING MACHINE OPERATOR-HEREDITARY CANCER PROGRAM COORDINATOR Work Phone: [facility] Start: 07-14-2024 ambulatory [facility] Start: 06-30-2024 End: 07-06-2024 Refill Michael Castanon SOLE MOLDING MACHINE OPERATOR-HEREDITARY CANCER PROGRAM COORDINATOR Work Phone: [facility] Comment on above: Med Refill Start: 06-22-2024 End: 07-26-2024 Pre-admission assessment Alfreda Miller [facility] Start: 06-22-2024 End: 06-22-2024 ambulatory Maria E Osman Facility:[facility] Start: 06-22-2024 End: 06-22-2024 Lab Drop off Maria E Omsan [facility] Start: 06-22-2024 End: 06-22-2024 ambulatory Maria E Osman Facility:[facility] [place] Start: 06-22-2024 End: 06-22-2024 Patient encounter procedure Maria E Osman [facility] Start: 06-21-2024 End: 06-21-[address] [facility] Work Phone: Start: 06-21-2024 End: 06-21-2024 [facility] Work Phone: Start: 05-11-2024 Non-patient / Non-visit [facility] Work Phone: Start: 05-09-2024 End: 05-09-[address] [facility] Work Phone: Start: 05-09-2024 End: 05-09-2024 Patient encounter procedure [facility] Work Phone: Start: 04-30-2024 End: 04-30-2024 Patient encounter procedure [facility] Work Phone: Start: 04-04-2024 End: 04-04-2024 ambulatory Daisy Liz MD Facility:[facility] Start: 02-01-2024 End: 02-01-[address] [facility] Work Phone: Start: 02-01-2024 End: 02-01-2024 Patient encounter procedure [facility] Work Phone: Start: 01-02-2024 End: 01-05-2024 Refill Rosangela Montague SOLE MOLDING MACHINE OPERATOR-HEREDITARY CANCER PROGRAM COORDINATOR [facility] Comment on above: Med Refill Start: 11-26-2023 End: 11-26-2023 Subsequent hospital visit by physician Miko Ohara MD Work Phone: [facility] Start: 11-26-2023 ambulatory MIKO OHARA [facility] Start: 11-26-2023 End: 11-26-2023 Office outpatient visit 15 minutes Miko Ohara MD Work Phone: [facility] Comment on above: Hx of total hip arth roplasty, right (Primary Dx) Paroxysmal atrial fi brillation (CMS-HCC) (Primary Dx); Unstable angina (CMS-HCC); SOB (shortness of breath) Start: 11-25-2023 End: 11-25-2023 Telephone encounter Medina [facility] Start: 10-28-2023 End: 10-28-[address] [facility] Work Phone: Start: 10-28-2023 End: 10-28-2023 Patient encounter procedure [facility] Work Phone: Start: 10-19-2023 End: 10-26-2023 Refill Mike Craft MD Work Phone: [facility] Comment on above: Med Refill Start: 09-17-2023 Telephone encounter Matt Duron H[facility]/Oncology Comment on above: Yearly Exam With Shane rodriguez Start: 08-20-2023 End: 08-20-2023 Subsequent hospital visit by physician Divine Dougherty Work Phone: [facility] Start: 08-20-2023 ambulatory DIVINE DOUGHERTY [facility] Start: 08-20-2023 End: 08-20-2023 Postop follow up visit related to original px Divine Dougherty Work Phone: [facility] Comment on above: Right hip pain (Prim hayden Dx) Start: 08-20-2023 ambulatory ELLIOT STARKS [facility] Start: 08-10-2023 End: 08-13-2023 Refill Divine Kaur SOLE MOLDING MACHINE OPERATOR-HEREDITARY CANCER PROGRAM COORDINATOR Work Phone: [facility] Comment on above: Med Refill Start: 07-23-2023 End: 07-23-2023 Postop follow up visit related to original px Divine Dougherty Work Phone: [facility] Comment on above: Tear of gluteus mini mus tendon, right, initial encounter (Primary Dx) Start: 07-23-2023 End: 07-23-2023 Subsequent hospital visit by physician Divine Dougherty Work Phone: [facility] Start: 07-23-2023 ambulatory DIVINE DOUGHERTY [facility] Start: 07-17-2023 Refill Mike galloway MD Work Phone: [facility] Comment on above: Med Refill Start: 07-15-2023 Telephone encounter Ashia [facility] Start: 07-07-2023 End: 2023 Evaluation and management of inpatient Miko Ohara MD Work Phone: [facility] Comment on above: Status post revision of total hip Start: 07-07-2023 End: 2023 Patient encounter status Miko Ohara MD Work Phone: [facility] Start: 07-01-2023 Patient encounter status [facility] Start: 07-01-2023 Preprocedural examin ation done Elliot Starks MD Work Phone: [facility] Start: 06-19-2023 Telephone encounter Jacqueline Sparrow RN [facility] Comment on above: Pre op clearance Start: 06-18-2023 End: 06-18-2023 Office outpatient visit 40 minutes Miko Ohara MD Work Phone: [facility] Comment on above: Right hip pain (Prim hayden Dx) Start: 06-02-2023 End: 06-02-2023 Office outpatient visit 25 minutes Mundo Diaz MD Work Phone: [facility] Comment on above: Paroxysmal atrial fi brillation (CMS-HCC) (Primary Dx); Primary hypertension; Chronic coronary artery disease Start: 05-14-2023 End: 05-14-2023 Office outpatient new 30 minutes Miko Ohara MD Work Phone: [facility] Comment on above: Pain in prosthetic j oint, initial encounter (Primary Dx); Primary osteoarthritis of right hip Start: 05-14-2023 End: 05-14-2023 Subsequent hospital visit by physician Miko Ohara MD Work Phone: [facility] Start: 03-30-2023 (Televisit) Televisit Elliot Dela Cruz [facility] Start: 03-30-2023 End: 03-30-2023 ambulatory Elliot Starks Other [employer] Other Start: 02-11-2023 End: 02-11-2023 Patient encounter procedure Alfreda Miller [facility] Start: 12-29-2022 End: 11-08-2024 Preoperative state Mundo Diaz MD Work [facility]: [facility] [employer] [facility] Start: 11-17-2022 End: 11-17-2022 ambulatory Elliot Starks Other [employer] Other Start: 11-17-2022 Telephone encounter Elliot Starks [facility] Start: 10-30-2022 End: 10-30-2022 ambulatory Elliot Starks Other [employer] Other Start: 10-30-2022 Office outpatient vi sit 15 minutes Elliot Starks [facility] Start: 10-29-2022 End: 10-29-2022 ambulatory Elliot Starks Other [employer] Other Start: 10-29-2022 Telephone encounter Elliot Starks [facility] Start: 10-27-2022 Nursing evaluation o f patient and report Elliot Starks [facility] Start: 10-27-2022 End: 10-27-2022 ambulatory Elliot Starks [employer] Other Start: 10-27-2022 End: 10-27-2022 Departed Referred MD Elliot Starks Work Phone: [facility] Work Phone: Start: 09-11-2022 Telephone encounter Matt Duron Hematology/Oncology Comment on above: Orders Start: 08-11-2022 End: 08-11-2022 ambulatory Elliot Starks Other [employer] Other Start: 08-11-2022 Nursing evaluation o f patient and report Elliot Starks [facility] Start: 07-17-2022 (Televisit) Televisit Elliot Starks [facility] Start: 07-17-2022 End: 07-17-2022 ambulatory Elliot Starks Other [employer] Other Start: 06-23-2022 End: 06-23-2022 ambulatory Elliot Starks Other [employer] Other Start: 06-23-2022 Nursing evaluation o f patient and report Elliot Starks [facility] Start: 06-09-2022 End: 06-09-[address] ELLIOT STARKS Facility:[facility] Start: 06-06-2022 End: 06-06-2022 ambulatory Elliot Starks Other [employer] Other Start: 06-06-2022 Telephone encounter Elliot Starks [facility] Start: 06-04-2022 End: 06-04-2022 ambulatory Elliot Starks Other [employer] Other Start: 06-04-2022 Office outpatient vi sit 25 minutes Elliot Starks [facility] Start: 05-21-2022 End: 05-21-2022 ambulatory Elliot Starks Other [employer] Other Start: 05-21-2022 Telephone encounter Elliot Starks [facility] Start: 04-26-2022 End: 04-26-[address] ELLIOT STARKS Facility: Start: 04-14-2022 End: 04-14-[address] ELLIOT STARKS Facility: Start: 12-18-2021 End: 12-18-2021 ambulatory Melchor Goff [place] Facility:[facility] Start: 10-03-2021 Telephone encounter Andrew black MD Work Phone: Hematology/Oncology Comment on above: Lab Orders Start: 09-26-2021 Telephone encounter Mikaela jimenez RN Work Phone: Hematology/Oncology Comment on above: Radiology Mammogram Start: 12-02-2016 End: 12-03-2016 Ambulatory DEFAULT PHYSICIAN Facility:[facility] Procedures Date Procedure Procedure Detail Performing Clinician Start: 12-27-2024 CRYOTHERAPY SKIN LESION Radha Espinal MD Work Phone: Start: 11-08-2024 Ecg routine ecg w/le ast 12 lds w/i&r Radha Mart SOLE MOLDING MACHINE OPERATOR-HEREDITARY CANCER PROGRAM COORDINATOR Work Phone: Start: 11-08-2024 Follow-up visit Follow-up RADHA MART Start: 2023 Basic metabolic pane l calcium total Chance Mahoney MD Work Phone: Start: 2023 Complete blood count with white cell differential, automated Paula Barrera SOLE MOLDING MACHINE OPERATOR-HEREDITARY CANCER PROGRAM COORDINATOR Work Phone: Start: 07-07-2023 Cultyp nuc acid amp prb cult/isolate ea orgnism Chance Mahoney MD Work Phone: Start: 07-07-2023 Radiologic examinati on pelvis 1/2 views Paula Barrera SOLE MOLDING MACHINE OPERATOR-HEREDITARY CANCER PROGRAM COORDINATOR Work Phone: Start: 07-07-2023 Cell count miscellan [...] Blood group typing, RH phenotyping Larissa Ayo MOTT Work Phone: Start: 06-02-2023 Ecg routine ecg w/le ast 12 lds w/i&r Mundo Diaz MD Work Phone: Start: 05-14-2023 Heavy metal quantiat david each tiffany Miko Ohara MD Work Phone: Start: 09-25-2020 Mammography Mikaela jimenez RN Work Phone: Start: 10-07-2019 Adult depression scr eening assessment Mikaela Thompson RN Work Phone: Start: 04-08-2017 Colonoscopy Mundo short MD Work Phone: Start: 01-01-2017 Screening mammography Deirc Starks Other Start: 02-01-2013 General examination of [...] Author Start: 11-08-2025 Tobacco Screening Tobacco Screening [facility] Start: 01-02-2025 Influenza vaccination P [facility] Start: 12-27-2024 End: 12-27-2024 Patient encounter procedure 12/27/2024 10:00 AM EDT Office Visit [facility] [address] [place] [phone] Radha Espinal MD [address] [place] [address] Arrived [facility] Comment on above: Arrived Start: 11-25-2024 Adult BMI Screening Adult BMI Screen ing [facility] Start: 11-25-2024 Tobacco Screening Tobacco Screening [facility] Start: 11-08-2024 End: 11-08-2024 Patient encounter procedure 11/08/2024 9:00 AM EDT Office Visit [facility] [address] [place] [address] Radha Mart, SOLE MOLDING MACHINE OPERATOR-HEREDITARY CANCER PROGRAM COORDINATOR [address] [place] [address] [facility] Start: 09-29-2024 Adult BMI Screening Adult BMI Screen ing [facility] Start: 09-29-2024 Screening for malign ant neoplasm of breast MAMMOGRAM SCREENING DISCUSSION [facility] Start: 08-11-2024 Adult BMI Screening Adult BMI Screen ing [facility] Start: 08-11-2024 End: 08-10-2025 CBC panel - Blood by Automated count CBC Lab Routine Paroxysmal atrial fibrillation ([facility]-HCC) Benign hypertension Expected: 08/11/2024 (Approximate), Expires: 08/10/2025 [facility] Comment on above: Expected: 08/11/2024 (Approximate), Expires: 08/10/2025 Start: 08-11-2024 End: 08-10-2025 Comprehensive metabolic 2000 panel - Serum or Plasma CMP Lab Routine Paroxysmal atrial fibrillation ([facility]-HCC) Benign hypertension Expected: 08/11/2024 (Approximate), Expires: 08/10/2025 [employer] Work Phone: Comment on above: Expected: 08/11/2024 (Approximate), Expires: 08/10/2025 Start: 08-11-2024 End: 08-10-2025 Magnesium [Mass/volume] in Serum or Plasma Magnesium Lab Routine Paroxysmal atrial fibrillation (CMS-HCC) Benign hypertension Expected: 08/11/2024 (Approximate), Expires: 08/10/2025 [facility] Comment on above: Expected: 08/11/2024 (Approximate), Expires: 08/10/2025 Start: 08-11-2024 Tobacco Screening Tobacco Screening [facility] Start: 08-08-2024 COVID-19 Vaccine () COVID-19 Vaccine () [facility] Start: 07-14-2024 Tobacco Screening Tobacco Screening [facility] Start: 07-14-2024 End: 07-14-2024 Patient encounter procedure 07/14/2024 11:20 AM EDT Office Visit [facility] [address] [place] [address] Miko Ohara MD [address] [place] [address] [facility] Start: 07-07-2024 Potassium [Moles/vol ume] in Serum or Plasma POTASSIUM [facility] Start: 06-02-2024 Adult BMI Screening Adult BMI Screen ing [facility] Start: 06-02-2024 Tobacco Screening Tobacco Screening [facility] Start: 02-16-2024 End: 02-16-2024 Patient encounter procedure 02/16/2024 11:00 AM EDT Office Visit [facility] [address] [facility] [address] [place] [address] Sheridan Kaye MD [address] [place] [address] [facility] Start: 01-03-2024 COVID-19 Vaccine () COVID-19 Vaccine () [facility] Start: 01-03-2024 COVID-19 Vaccine (7 - 2024-25 season) COVID-19 Vaccine ( season) [facility] Start: 01-03-2024 Influenza vaccination C [facility] Start: 11-26-2023 End: 11-26-2023 Patient encounter procedure [facility] Start: 10-09-2023 DIABETES SCREEN DIABETES SCREEN [facility] Start: 10-09-2023 Diabetes Screening Diabetes Screenin g [facility] Start: 08-20-2023 End: 08-20-2023 Patient encounter procedure 08/20/2023 2:30 PM EDT Office Visit [facility] [address] [place] [id number] Divine Dougherty [address] [place] [address] [facility] Start: 08-12-2023 End: 08-12-2023 Patient encounter procedure 08/12/2023 8:00 AM EDT Office Visit [facility] [address] [place] [phone] Miko Vasquez, SOLE MOLDING MACHINE OPERATOR-HEREDITARY CANCER PROGRAM COORDINATOR [address] [place] [address] [facility] Start: 07-23-2023 End: 07-23-2023 Patient encounter procedure 07/23/2023 2:30 PM EDT Office Visit [address] [address] Divine Dougherty [address] [place] [id number] [facility] Start: 07-07-2023 End: 07-07-2023 Evaluation and management of inpatient [facility] Comment on above: Tear of rotator [...] Assessment [facility] Pre Admission [address] [place] [address] Pre-op testing (Primary Dx); Essential (primary) hypertension; Abnormal finding of blood chemistry, unspecified; Abnormal coagulation profile [facility] [facility] Pre Admission Comment on above: Pre-op testing (Prim hayden Dx); Essential (primary) hypertension; Abnormal finding of blood chemistry, unspecified; Abnormal coagulation profile Start: 06-13-2023 COVID-19 Vaccine () COVID-19 Vaccine () [facility] [facility] Start: 05-28-2023 End: 05-28-2023 Patient encounter procedure 05/28/2023 11:00 AM EST Office Visit [facility] [address] [place] [address] Peter Gardiner, [address] [place] [address] [facility] Start: 05-14-2023 End: 05-14-2024 MR Hip - right WO contrast MRI HIP RIGHT WITHOUT CONTRAST Imaging Routine Pain in prosthetic joint, initial encounter Expected: 05/14/2023, Expires: 05/14/2024 [facility] Comment on above: Expected: 05/14/2023 , Expires: 05/14/2024 Start: 05-04-2023 Advance Directive Discussion Advance Directive Discussion [facility] Start: 05-04-2023 Behavioral Health Screening Behavioral Health Screening [facility] Start: 01-02-2023 Covid-19 Vaccine () Covid-19 Vaccine () [facility] Start: 01-02-2023 COVID-19 VACCINE ( season) COVID-19 VACCINE ( season) [facility] Start: 01-02-2023 Influenza vaccination INFLUENZA (Sea son Ended) [facility] Start: 10-27-2022 Bacteria identified in Urine by Culture [facility] Start: 05-04-2022 ADVANCE DIRECTIVE DISCUSSION ADVANCE DIRECTIVE DISCUSSION [facility] Start: 05-04-2022 DEPRESSION ASSESSMENT DEPRESSION ASS ESSMENT [facility] Start: 04-08-2022 Screening for malign ant neoplasm of colon Colonoscopy [facility] Start: 01-02-2022 Influenza vaccination INFLUENZA (Sea son Ended) [facility] Start: 10-07-2021 End: 12-07-2021 Cancer Ag 27-29 [Units/volume] in Serum or Plasma CA 27.29 BLOOD Lab Routine Malignant neoplasm of upper-outer quadrant of left breast in female, estrogen receptor positive (HCC) Expected: 10/07/2021, Expires: 12/07/2021 [facility] Work Phone: Comment on above: Expected: 10/07/2021 , Expires: 12/07/2021 Start: 10-07-2021 End: 12-07-2021 CBC W Auto Differential panel - Blood CBC + DIFF Lab Routine Malignant neoplasm of upper-outer quadrant of left breast in female, estrogen receptor positive (HCC) Expected: 10/07/2021, Expires: 12/07/2021 [facility] Work Phone: Comment on above: Expected: 10/07/2021 , Expires: 12/07/2021 Start: 10-07-2021 End: 12-07-2021 Comprehensive metabolic 2000 panel - Serum or Plasma COMP METABOLIC PANEL Lab Routine Malignant neoplasm of upper-outer quadrant of left breast in female, estrogen receptor positive (HCC) Expected: 10/07/2021, Expires: 12/07/2021 [facility] Work Phone: Comment on above: Expected: 10/07/2021 , Expires: 12/07/2021 Start: 09-25-2021 Mammography MAMMOGRAM [facility] Start: 05-04-2021 ADVANCE DIRECTIVE DISCUSSION ADVANCE DIRECTIVE DISCUSSION [facility] Start: 11-17-2020 COVID-19 VACCINE (3 - Booster for Pfizer series) COVID-19 VACCINE (3 - Booster for Pfizer series) [facility] Start: 10-06-2020 Adult depression screening assessment DEPRESSION SCREENING [facility] Start: 08-15-2020 COVID-19 VACCINE (3 - Booster for Pfizer series) COVID-19 VACCINE (3 - Booster for Pfizer series) [facility] Start: 01-05-2019 Pneumococcal Vaccine : 65+ (2 of 2 - PCV) Pneumococcal Vaccine: 65+ (2 of 2 - PCV) [facility] Start: 01-05-2019 PNEUMOCOCCAL: 65+ (2 - PCV) PNEUMOCOCCAL: 65+ (2 - PCV) [facility] Start: 07-07-2012 BONE DENSITY BONE DENSITY [facility] Start: 07-07-2012 Fall Risk Screening Fall Risk Screen ing [facility] Start: 07-07-2012 Screening for osteoporosis Bone Density Screening [facility] Start: 2007 RSV Vaccine (1 - 1-d ose 60+ series) RSV Vaccine (1 - 1-dose 60+ series) [facility] Start: 07-07-1997 Administration of varicella zoster vaccine Zoster (Shingles) Vaccine (1 of 2) [facility] Start: 07-07-1997 SHINGRIX VACCINE (1 of 2) SHINGRIX VACCINE (1 of 2) [facility] Start: 07-07-1997 Zoster vaccine hzv l david for subcutaneous use ZOSTER (SHINGLES) VACCINE (1 of 2) [facility] Start: 07-07-1992 COLOGUARD (FIT-DNA) COLOGUARD (FIT-D NA) [facility] Start: 07-07-1992 Colonoscopy COLONOSCOPY [facility] Start: 07-07-1992 COLORECTAL CANCER SCREENING COLORECTAL CANCER SCREENING [facility] Start: 07-07-[address] COLONOGRAPHY [facility] Start: 07-07-1992 FECAL OCCULT BLOOD FECAL OCCULT BLOO D [facility] Start: 07-07-1992 LIPID SCREEN LIPID SCREEN [facility] Start: 07-07-1992 Screening for malign ant neoplasm of colon COLORECTAL CANCER SCREENING DISCUSSION [facility] Start: 07-07-1992 SIGMOIDOSCOPY SIG[facility]IDOSCOPY [facility] Start: 1987 Lipid panel LIPID SCREENING [facility] Start: 1987 Screening for malign ant neoplasm of breast MAMMOGRAM SCREENING DISCUSSION [facility] Start: 07-07-1968 Screening for malign ant neoplasm of cervix CERVICAL CANCER SCREENING DISCUSSION [facility] Start: 07-07-1966 DTaP,Tdap and Td Vaccines (1 - Tdap) DTaP,Tdap and Td Vaccines (1 - Tdap) [facility] Start: 07-07-1966 Third diphtheria, tetanus and acellular pertussis (DTaP) vaccination TDAP (ADULT) [facility] Start: 07-07-1966 Urine microalbumin profile [facility] Start: 07-07-1965 Adult BMI Follow Up Plan Adult BMI F ollow Up Plan [facility] Start: 07-07-1965 HEPATITIS C SCREENING HEPATITIS C SC REENING [facility] Start: 1959 Depression Screening Depression Scre ening [facility] Start: 07-07-1953 PNEUMOCOCCAL: 65+ (1 - PCV) PNEUMOCOCCAL: 65+ (1 - PCV) [facility] Start: 1947 Hepatitis C screening HEPATITI S C VIRUS SCREENING [facility] Start: 1947 Medicare Annual Well ness Visit Medicare Annual Wellness Visit [facility] Start: 1945 Potassium [Moles/vol ume] in Serum or Plasma POTASSIUM [facility] Start: 1945 Screening for osteoporosis DEXA SCAN DISCUSSION [facility] Start: 1945 Tetanus vaccination TETANUS [facility] ANAEROBE CULTURE [facility] Comment on above: Release Upon Orderin g for 1 Occurrences starting 07/07/2023 Bacterial culture an d sensitivity CULTURE WOUND Microbiology Routine 07/07/2023 2:27 PM EST [facility] BODY FLUID CELL COUNT BODY FLUID CELL COUNT Fluids Routine Tear of rotator cuff of right hip, initial encounter 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, initial encounter Release Upon Ordering for 1 Occurrences starting 07/07/2023 [facility] Comment on above: Release Upon Orderin g for 1 Occurrences starting 07/07/2023 End: 08-04-2025 Comprehensive metabolic 2000 panel - Serum or Plasma Comprehensive metabolic panel Lab Routine Primary hypertension Coronary artery disease involving [place] coronary artery of [place] heart with unstable angina pectoris ([facility]) 1 Occurrences starting 08/04/2024 until 08/04/2025 [employer] Work Phone: Comment on above: 1 Occurrences starti ng 08/04/2024 until 08/04/2025 End: 10-16-2024 DBT Breast - bilateral screening SHANE SCREENING [facility] Radiology Routine Encounter for screening mammogram for malignant neoplasm of breast 1 Occurrences starting 09/17/2023 until 10/16/2024 [facility] Work Phone: Comment on above: 1 Occurrences starti ng 09/17/2023 until 10/16/2024 End: 07-07-2023 Fungus identified in Unspecified specimen by Culture [email or web address] Comment on above: Release Upon Orderin g for 1 Occurrences starting 07/07/2023 One Time for 1 Occur rences starting 07/07/2023 until 07/07/2023 End: 08-04-2025 Magnesium [Mass/volume] in Serum or Plasma Magnesium Lab Routine Primary hypertension Coronary artery disease involving [place] coronary artery of [place] heart with unstable angina pectoris ([facility]) 1 Occurrences starting 08/04/2024 until 08/04/2025 [employer] Comment on above: 1 Occurrences starti ng 08/04/2024 until 08/04/2025 End: 10-26-2022 SHANE SCREENING W YAW SHANE SCREENING [facility] Radiology Routine Encounter for screening mammogram for malignant neoplasm of breast 1 Occurrences starting 09/26/2021 until 10/26/2022 [facility] Work Phone: Comment on above: 1 Occurrences starti ng 09/26/2021 until 10/26/2022 End: 10-11-2023 SHANE SCREENING W YAW SHANE SCREENING [facility] Radiology Routine Encounter for screening mammogram for malignant neoplasm of breast 1 Occurrences starting 09/11/2022 until 10/11/2023 [facility] Work Phone: Comment on above: 1 Occurrences starti ng 09/11/2022 until 10/11/2023 End: 07-07-2023 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 [email or web address] Comment on above: Release Upon Orderin g for 1 Occurrences starting 07/07/2023 One Time for 1 Occur rences starting 07/07/2023 until 07/07/2023 XR Pelvis and Hip - right Views XR HIP WITH PELVIS RIGHT Imaging Routine Primary osteoarthritis of right hip 05/14/2023 9:20 AM EST [employer] [facility] [employer] Work Phone: XR Pelvis and Hip - right Views XR HIP WITH PELVIS RIGHT Imaging Routine Tear of gluteus minimus tendon, right, initial encounter 07/23/2023 2:22 PM EDT [facility] XR Pelvis and Hip - right Views XR HIP WITH PELVIS RIGHT Imaging Routine Right hip pain 08/20/2023 3:17 PM EDT [facility] XR Pelvis and Hip - right Views XR HIP WITH PELVIS RIGHT Imaging Routine Hx of total hip arthroplasty, right 11/26/2023 1:53 PM EDT [facility] XR Pelvis and Hip - right Views XR HIP WITH PELVIS RIGHT Imaging Routine Hx of total hip arthroplasty, right 07/14/2024 1:07 PM EDT [facility] Immunizations Immunization Date Immunization Notes Care Provider Pablo wheat 02-08-2024 influenza virus vaccine, unspecified formulation Maria E Osman [facility] 02-10-2023 influenza virus vaccine, unspecified formulation Alfredaana Miller [facility] 02-01-2022 influenza virus vaccine, unspecified formulation Alfredaana Miller [facility] 08-13-2021 SARS-CoV-2 mRNA (psmoaewkjsm-wtmf-cdmha se) vaccine Alfreda Lumalini [facility] 01-29-2021 SARS-CoV-2 (COVID-19 ) mRNA BNT-162b2 vax Alfreda Miller [facility] Comment on above: Result Comment: 2022: [id number] 06-20-2020 COVID-19 vaccine, ag e 12+ yr ([employer] - PURPLE TOP) Mikaela Thompson RN Work Phone: [facility] 05-28-2020 SARS-CoV-2 (COVID-19 ) mRNA BNT-162b2 vax Alfreda Miller [facility] 05-18-2020 COVID-19 vaccine, ag e 12+ yr (PFIZER-[employer] - PURPLE TOP) Mikaela Thompson RN Work Phone: [facility] 01-27-2020 influenza virus vaccine, split virus (incl. purified surface antigen) Elliot Starks Other [employer] Other 01-27-2020 influenza virus vaccine, unspecified formulation Alfreda Lue [facility] 01-20-2019 influenza virus vaccine, unspecified formulation Alfreda Lue [facility] 01-20-2019 influenza, high dose seasonal, preservative-free Mikaela Thompson RN Work Phone: [facility] 03-09-2018 influenza virus vaccine, unspecified formulation Alfreda Lue [facility] 01-05-2018 influenza virus vaccine, split virus (incl. purified surface antigen) Elliot Starks Other [employer] Other 01-05-2018 influenza virus vaccine, unspecified formulation Alfreda Lue [facility] 01-05-2018 influenza, high dose seasonal, preservative-free Mikaela Thompson RN Work Phone: [facility] 01-05-2018 pneumococcal polysaccharide vaccine, 23 valent Mikaela Thompson RN Work Phone: [facility] 02-25-2017 influenza virus vaccine, unspecified formulation Alfreda Lue [facility] 02-17-2017 pneumococcal polysaccharide vaccine, 23 valent Alfreda Miller [facility] 02-05-2017 influenza virus vaccine, split virus (incl. purified surface antigen) Elliot Starks Other [employer] Other 02-05-2017 influenza virus vaccine, unspecified formulation Alfreda Miller [facility] 02-05-2017 pneumococcal conjuga te vaccine, 13 valent Alfreda Miller [facility] 02-01-2002 pneumococcal polysaccharide vaccine, 23 valent Elliot Starks Other [facility] Payers Date Payer Category Payer Private Health Insurance [id number] 2023 Medicare (Managed Care) MEDICARE [employer]ET[employer] PPO [id number] 2022 Self-pay 2021 Medicaid [id number] 2021 Medicare HMO [employer] MEDICARE [id number] 2014 Medicare AETNA MEDICARE A ETNA MEDICARE PPO [id number] 2014-Present [phone] [address] [place] [address] PPO [id number] 2014 Medicare [id number] [id number]. [id number] 1959 Medicare [id number] 1947 Unknown [id number] 2.16.840.1.613225.3.579.2. 593 1947 Unknown [id number] 2.16.840.1.564791.3.579.2. 593 1947 Unknown [id number] 2.16.840.1.235510.3.579.2. 593 1947 Unknown [id number] 2.16.840.1.001300.3.579.2. 718 1947 Unknown [id number] 2.16.840.1.993343.3.579.2. 727 1947 Unknown [id number] 2.16.840.1.950649.3.579.2. 727 1947 Unknown [id number] 2.16.840.1.156579.3.579.2. 727 1947 Unknown [id number] 2.16.840.1.211558.3.579.2. 983 1947 Unknown [id number] 2.16.840.1.050952.3.579.2. 983 1947 Unknown [id number] 2.16.840.1.865420.3.579.2. 983 1947 Unknown [id number] 2.16.840.1.057385.3.579.2. 983 1947 Unknown [id number] 2.16.840.1.354052.3.579.2. 983 1947 Unknown [id number] 2.16.840.1.052805.3.579.2. 983 1947 Unknown [id number] 2.16.840.1.064399.3.579.2. 983 1947 Unknown [id number] 2.16840.1.124723.3.579.2. 983 1947 Unknown [id number] 2.840.1.029837.3.579.2. 727 1947 Unknown [id number] 2.16840.1.187179.3.579.2. 727 1947 Unknown [id number] 2.16.840.1.741009.3.579.2. 727 1947 Unknown [id number] 2.16.840.1.504677.3.579.2. 727 1947 Unknown [id number] 2.840.1.723743.3.579.2. 727 1947 Unknown [id number] 2.16.840.1.135035.3.579.2. 1286 1947 Unknown [id number] 2.16.840.1.833667.3.579.2. 1286 1947 Unknown [id number] 2.16.840.1.960075.3.579.2. 1286 1947 Unknown [id number] 2.16.840.1.594331.3.579.2. 196 1947 Unknown [id number] 2.840.1.914268.3.579.2. 196 1947 Unknown [id number] 2.160.1.129784.3.579.2. 196 1947 Unknown [id number] 2.16840.1.354759.3.579.2. 196 1947 Unknown [id number] 2.840.1.272272.3.579.2. 1259 Private Health Insurance Aetna [facility] PFFS M [id number] Unknown Unknown [id number] 2..840.1.453387.3.579.2. 531 Social History Date Type Detail Facility Start: 12-03-2015 End: 11-26-2023 Tobacco smoking status NHIS Ex-smoker [facility] End: 12-05-1990 History of tobacco use Current smoker [facility] Start: 12-03-2015 End: 05-15-2020 Cigarettes smoked current (pack per day) - Reported 1 [facility] Start: 12-03-2015 End: 11-26-2023 Tobacco use and exposure Smokeless tobacco non-user [facility] Start: 10-08-2020 End: 11-08-2024 Alcohol intake Current drinker of alcohol (finding) [facility] Start: 1945 Sex Assigned At Not on file C [facility] Start: 05-15-2020 End: 05-14-2023 Sex Assigned At [facility] End: 12-05-1990 History of tobacco use Cigarette Smoker [facility] Start: 1945 Sex Assigned At Female F [facility] Tobacco smoking status Never [facility] Start: 05-14-2023 Tobacco smoking stat us MTIS Never smoked tobacco [facility] Has the electric, [employer], Sprig, or water company threatened to shut off services in your home in past 12Mo No [facility] [employer] (I/We) worried wheth er (my/our) food would run out before (I/we) got money to buy more. Never true [facility] Start: 03-19-2017 End: 06-19-2023 Alcohol Comment social [facility] Start: 12-07-2014 End: 05-09-2024 Sex Female (finding) [facility] Start: 03-31-2022 Tobacco Comment quit in 1989 [facility] Start: 05-09-2018 Gender identity Identifies as female gender (finding) [facility] Sexual Orientation [facility] Start: 09-26-2022 Alcohol Comment Alcohol: 1-2 d rinks occasionally. Caffeine: soda [facility] Medical Equipment Procedure Code Equipment Code Equipment Origin al Text Equipment Identifier Dates Anchors, 5.5 Non Punching - [id number] Start: 07-07-2023 Anchors, 5.5 Non Punching - [id number] Start: 07-07-2023 Functional Status Date Assessment Result Facility 09-19-2024 Functional Status N/A [facility] 06-22-2024 Functional Status N/A [facility] 07-07-2023 Are you deaf, or do you have serious difficulty hearing No 07/07/2023 4:30 PM Marcella Muñoz RN [facility] 07-07-2023 Are you blind, or do you have serious difficulty seeing, even when wearing glasses No 07/07/2023 4:30 PM Marcella Muñoz, RICARDO [facility] 07-07-2023 Do you have serious difficulty walking or climbing stairs No 07/07/2023 4:30 PM Marcella Muñoz RN [facility] 07-07-2023 Do you have difficul ty dressing or bathing No 07/07/2023 4:30 PM Marcella Muñoz, RICARDO [facility] 07-07-2023 Because of a physica l, mental, or emotional condition, do you have difficulty doing errands alone such as visiting a physician's office or shopping No 07/07/2023 4:30 PM Marcella Muñoz, RICARDO [facility] 02-11-2023 Functional Status N/A [facility] Mental Status Date Assessment Result Facility 07-07-2023 Because of a physica l, mental, or emotional condition, do you have serious difficulty concentrating, remembering, or making decisions No 07/07/2023 4:30 PM Marcella Muñoz, RICARDO [facility] Clinical Notes 09-26-2021 to 12-27-2024 Radha Espinal MD - 12/27/2024 10:00 AM EDTTelephone Encounter - Angelica Kelly, KOKO - 12/27/2024 1:36 AM EDTTelephone Encounter - Angelica Kelly CMA - 12/27/2024 1:36 AM EDTPatient Instructions Note Date & Type Note Facility 12-27-2024 History of Presen t illness Narrative Lesions: Location: left upper arm Duration: years [...] Right Popliteal Fossa, Right Thigh - Anterior [place] and brown stuck on verrucous scaly papule [...] office if abnormal redness or tenderness develops at the treatment site. Cryotherapy today, see procedure note. Diagnosis: Inflamed seborrheic keratosis Indication: Inflamed Consent: Verbal consent was obtained and risks were discussed, including, but not limited to risks of scarring, darker or mainspring strip gauger pigmentary changes, recurrence, incomplete removal and infection. [...] Right Popliteal Fossa, Right Thigh - Anterior 2. INFLAMED SKIN TAG [...] a 1:10 solution of 8.4% sodium bicarbonate, Quantity: 0.5 cc The area was prepared and draped [...] pt schedule FBSE documented in this encounter [facility] 12-27-2024 Miscellaneous Notes Formattin g of this note might be different from the original. Theresa: 11/08/2024 documented in this encounter [facility] 12-27-2024 Telephone encount er Note Theresa: 11/08/2024 [facility] 12-18-2024 Note HNO ID: [id number] Author: HARSH BARCENAS RT(R) Service: ? Author Type: Technologist Type: Progress Notes Filed: 12/18/2024 20:46 Note Text: Radiology Service Progress Note PATIENT NAME: Bettie Burns DATE OF SERVICE: December 18, 2024 TIME: 8:31 PM PATIENT IDENTITY VERIFICATION COMPLETED USING TWO (2) IDENTIFIERS: Name and Date of confirmed by patient verbally and Name and Date of confirmed by identification band. FALL SCREENING: Has the patient had 2 falls in the last year or 1 fall with injury or currently using an Ambulatory Assistive Device (Walker, Cane, Wheelchair, Crutches, etc.)? Emergency Room Patient: Screened in ED PATIENT GENDER DATA: Assigned female at . status: : No status: NO. PATIENT RELEVANT IMPLANT DATA REVIEWED: Not Applicable PATIENT PRESENTS WITH AN IMPLANTABLE OR ATTACHED EMERGENCY ROOM PHYSICIAN ASSISTANT: No RADIOLOGY DEPARTMENT: General X-ray: Exam(s) Completed: Chest X-Ray PERIPHERAL IV DATA: Not applicable SIGNED BY: RT Magy(R) December 18, 2024 8:31 PM [facility] 11-24-2024 Miscellaneous Notes Formattin g of this note might be different from the original. Ov-11/08/24 Cmp-11/08/24 documented in this encounter [facility] 11-24-2024 Telephone encount er Note Ov-11/08/24 Cmp-11/08/24 [facility] 11-08-2024 History of Presen t illness Narrative [...] tablet (20 mg total) before bedtime. vitamins A,C,C-rrpy-gumqsf (ICAPS AREDS) 4,296 mcg-226 mg-90 mg capsule [...] office. Past Medical History: Diagnosis Date A-fib ([place]) hx of Allergic Allergic to certain medications Arrhythmia 12/2016 ATRIAL FIBRILLATION Arthritis Back pain Chronic Nerve ablation 07/12/19 Breast cancer ([place]) 11/14/2015 LEFT Cataract 02/2019 Removed 03/2019 COVID-19 [...] 09/28/2018 [facility] 1997 ARM SURGERY Both shoulders rotator cuff repair ARTHROSCOPY REPAIR ROTATOR CUFF SHOULDER Right 05/16/2020 Performed by Melchor Rivera DO at [facility] ARTHROSCOPY SHOULDER Right 05/16/2020 Performed by Melchor Rivera DO at [facility] BREAST BIOPSY Left 2016 2016 BREAST LUMPECTOMY Left 11/14/2015 WITH RADIATION BREAST SURGERY Left 2016 lumpectomy CATARACT EXTRACTION CHOLECYSTECTOMY 2000 COLONOSCOPY 2018 Will not need one again Coronary angiogram and left ventricular gram/pressure N/A 08/08/2021 Performed by Bertram Lal MD at [facility] CARDIAC CATH LABS EGD 2017 EYE SURGERY Cataract removal r/l 07/2019 lids lifted HIP SURGERY Right 12/16/2021 HYSTERECTOMY JOINT REPLACEMENT Total hip replacement. 12/16/2021 LYMPH NODE BIOPSY 2015 All negative L/breast OOPHORECTOMY SHOULDER ARTHROSCOPY Bilateral [...] Needs: No Transportation Needs (07/07/2023) Received from [facility] PRAPARE - Transportation Lack of Transportation (Medical): No Lack of Transportation (Non-Medical): No Physical Activity: Not on file Stress: Not on file Social Connections: Not on file Interpersonal Safety: Not on file Housing Instability: Low Risk (07/07/2023) Received from [facility] Housing Stability Vital Sign Unable to [...] MD Referring Physician: Elliot Starks MD [address] [place] [address] MEDINA Landry 11/08/24 0926 documented in this encounter [employer] 11-08-2024 Instructions MEDINA Landry - 11/08/2024 9:00 AM EDT BP and HR are well controlled. Continue cardiac medications. Recommend follow up in one year. Please call the office if you develop new or worsening symptoms and we will see you sooner. documented in this encounter [facility] 11-08-2024 Miscellaneous Notes Formattin g of this note might be different from the original. OV 11/08/24 CMP, CBC 11/08/24 documented in this encounter [facility] 11-08-2024 Telephone encount er Note OV 11/08/24 CMP, CBC 11/08/24 [facility] 11-01-2024 Miscellaneous Notes Formattin g of this note might be different from the original. Overdue labs. Pt has been notified. Ov scheduled 11/08 documented in this encounter [facility] 11-01-2024 Telephone encount er Note Overdue labs. Pt has been notified. Ov scheduled 11/08 [facility] 09-19-2024 Evaluation + Plan note Extrac mary from: Title:- [facility] Note Author:Alfreda Miller MD. Date:09/19/24 Impression and Plan Assessment and Plan: Diagnosis: Vaginal atrophy (MSY74-HR N95.2, Discharge, Medical), Recurrent UTI (FSJ97-FX N39.0, Discharge, Medical), Mixed incontinence (JZT68-MM N39.46, Discharge, Medical). 79-year-old female with a [...] Osman PA-C Location:[facility] Appointment Type:URO Office Visit [facility] 05-19-2025 Hospital Discharge instructions Follow Up Care 09/19/2024 08:36:00 With:Maria E Osman PA-C, URL Address: When:Within 3 Month(s) Comments:w/ PVR [facility] 05-19-2025 Hospital Discharge instructions Patient Education [...] with PVR With:Alfreda Miller Address:Unknown When: Unknown [facility] 05-19-2025 NoteHistory and Physical Patient: BETTIE BURNS Age: 79 years Sex: Female : 1945 Associated Diagnoses: None Author: Paul VILLEGAS, Alfreda Palacios Preoperative Information Indication for procedure and diagnosis: [...] 1 month, then 2x a week afterwards, [facility]/pharmacy #[id number], 165, cm, 06/22/24 13:05:00 EST, Height/Length Dosing, 80.7, kg, 06/22/24 13:05:00 EST, Weight Dosing... Keflex 500 mg Cap: 500 mg = 1 cap(s), Oral, q12hr, X 7 day(s), # 14 cap(s), Refills(s) 0, Pharmacy:[facility]/pharmacy #[id number], 165, cm, 06/22/24 13:05:00 EST, Height/Length Dosing, 80.7, kg, 06/22/24 13:05:00 EST, Weight Dosing trospium 60 mg oral capsule, extended release: 60 mg = 1 cap(s), Oral, Bedtime, # 90 tab(s), Refills(s) 3, Pharmacy: [facility], 165, cm, 05/27/23 8:54:00 EST, Height/Length Dosing, 77.5, kg, 05/27/23 8:54:00 EST, Weight Dosing Documented Medications Documented Aleve: Refills(s) 0 BACLOFEN 10 MG TABLET: BACLOFEN 10 MG TABLET Eliquis 5 mg oral tablet: Refills(s) 0 Neuveria Vitamin OTC: Neuveria Vitamin OTC Potassium Chloride (Qfx-Hhgs-Jgi 10) 10 mEq oral tablet, extended release: [...] list: All Problems Anticoagulated / SNOMED CT 050431802 / Confirmed Chronic atrial fibrillation / SNOMED CT 6776420189 / Confirmed Eczema / SNOMED CT 78065648 / Confirmed Former smoker / SNOMED CT 59259605 / Confirmed Frequent UTI / SNOMED CT 131167116 / Confirmed History of breast cancer / SNOMED CT 7221149548 / Confirmed History of malignant neoplasm of breast / SNOMED CT 8033008517 / Confirmed Hypertensive disorder / SNOMED CT 6122800914 / Confirmed Microscopic hematuria / SNOMED CT 398193788 / Confirmed Mixed incontinence / SNOMED CT 05282189 / Confirmed Rectocele / SNOMED CT 6635628208 / Confirmed Histories Past Medical History: No active or resolved past medical history items have been selected or recorded. Family History: Entire family history is negative. Procedure history: Cholecystectomy (31826662). Hip replacement (4645785412). Lumpectomy of left breast (8419867578). Rotator cuff (57378793). ROSA - Total abdominal hysterectomy (802395837). Appendectomy (928670023). Cataracts (2601731543). Cardiac ablation system (2587253192). Social History Social & Psychosocial Habits Tobacco [...] per clinic note, risks/benefits previously discussed and documentedJoint Township District Memorial HospitalComment on above:Result Comment: Electronically Signed By: Alfreda Miller MD\.br\Date and Time Signed: 09/19/24 08:[id number] NoteProgress Note-Physician Patient: BETTIE BURNS Age: 79 [...] 1 month, then 2x a week afterwards, [facility]/pharmacy #[id number], 165, cm, 06/22/24 13:05:00 EST, Height/Length Dosing, 80.7, kg, 06/22/24 13:05:00 EST, Weight Dosing... Keflex 500 mg Cap: 500 mg = 1 cap(s), Oral, q12hr, X 7 day(s), # 14 cap(s), Refills(s) 0, Pharmacy:[facility]/pharmacy #[id number], 165, cm, 06/22/24 13:05:00 EST, Height/Length Dosing, 80.7, kg, 06/22/24 13:05:00 EST, Weight Dosing trospium 60 mg oral capsule, extended release: 60 mg = 1 cap(s), Oral, Bedtime, # 90 tab(s), Refills(s) 3, Pharmacy: [facility], 165, cm, 05/27/23 8:54:00 EST, Height/Length Dosing, 77.5, kg, 05/27/23 8:54:00 EST, Weight Dosing Documented Medications Documented Aleve: Refills(s) 0 BACLOFEN 10 MG TABLET: BACLOFEN 10 MG TABLET Eliquis 5 mg oral tablet: Refills(s) 0 Neuveria Vitamin OTC: Neuveria Vitamin OTC Potassium Chloride (Gnk-Vazl-Xjo 10) 10 mEq oral tablet, extended release: [...] Plan Assessment and Plan: Diagnosis: Vaginal atrophy (CHV69-FU N95.2, Discharge, Medical), Recurrent UTI(LGC26-WV N39.0, Discharge, Medical), Mixed incontinence (LZV79-JW N39.46, Discharge, Medical). 79-year-old female with a [...] up CT scan confirmed passage. Increase fluids recommendedJoint Township District Memorial HospitalComment on above:Result Comment: Electronically Signed By: Paul VILLEGAS, Alfreda Villavicencio.br\Date and Time Signed: 09/19/24 08:[id number] Note Patient Education Cystoscopy with Botox injection [...] you have a fever over 100 degrees. ???[facility]04-02-2025 Miscellaneous Notes* Telephone Encounter - Leslie Negron RN - 08/03/2024 12:21 AM EDT Ov-11/26/23 Cmp and mg -07/15/23 New cmp and mg order placed and letter sent 08/04/24 documented in this encounterNorwalk Memorial HospitalClikthrough [id number] Telephone encounter Note* Telephone Encounter - Leslie Negron RN - 08/03/2024 12:21 AM EDT Ov-11/26/23 Cmp and mg -07/15/23 New cmp and mg order placed and letter sent 08/04/24 [facility] Miscellaneous Notes* Telephone Encounter - Sander Pollack RN - 07/27/2024 1:57 PM EDT P/c from pt requesting refills to [facility]. OV 11/26/23 07/14/24 MAG, CMP, CBC EKG 08/12/23 documented in [facility] [employer] [id number] Telephone encounter Note* Telephone Encounter - Sander Pollack RN - 07/27/2024 1:57 PM EDT P/c from pt requesting refills to [facility]. OV 11/26/23 07/14/24 MAG, CMP, CBC EKG 08/12/23 [facility] HospitalSanT[facility]sti [id number] History of Present illness Narrative* Svitlana Blake - 07/14/2024 2:00 PM EDT Ortho Nurse - Established Patient Intake Room#: 5 Date: 07/14/2024 1:15 PM Patient: Bettie Burns MR#: [id number] : 1945 Age: 79 y.o. 1yr R [...] LUMPECTOMY FOOT SURGERY HEART CATHETERIZATION no stents AK ENDOMETRIAL CRYOABLATION W/US & ENDOMETRIAL CR REMOVAL [...] month, then 2x/week for maintainence, [facility]/pharmacy #[id number], 165, cm, 02/11/23 10:41:00 EDT, Height/Length Dosing, [...] month, then 2x/week for maintainence, [facility]/pharmacy #[id number], 165, cm, 02/11/23 10:41:00 EDT, Height/Length Dosing, [...] oxycodone, penicillins, and tramadol. * Paula Barrera APRN-HEREDITARY CANCER PROGRAM COORDINATOR - 07/14/2024 2:00 PM EDT HPI: Patient [...] 07/14/2024 1:15 PM Patient: Bettie Burns MR#: [id number] : 1945 Age: 79 y.o. 1yr R [...] REPAIR Right 07/07/2023 Laterality: Right; Surgeon: Miko Oahra MD; Location: [facility] OR REVISION ARTHROPLASTY HIP BOTH ACETABULAR & FEMORAL COMPONENTS Right 07/07/2023 Laterality: Right; Surgeon: Miko Ohara MD; Location: [facility] OR HIP REPLACEMENT 2021 ABLATION NERVE RADIOFREQUENCY PULSED 09/2018 for a-fib with [facility] APPENDECTOMY BREAST LUMPECTOMY FOOT SURGERY HEART CATHETERIZATION no stents AK ENDOMETRIAL CRYOABLATION W/US & ENDOMETRIAL CR REMOVAL [...] month, then 2x/week for maintainence, [facility]/pharmacy #[id number], 165, cm, 02/11/23 10:41:00 EDT, Height/Length [...] month, then 2x/week for maintainence, [facility]/pharmacy #[id number], 165, cm, 02/11/23 10:41:00 EDT, Height/Length [...] oxycodone, penicillins, and tramadol. documented in this encounterAvita [facility]02-27-2025 Miscellaneous Notes* Telephone Encounter - Mami Cifuentes RN - 06/30/2024 12:22 AM EST OV 11/26/2023 documented in this encounterUniversity [facility]als [facility]02-[facility]25 Telephone encounter Note* Telephone Encounter - Mami Cifuentes RN - 06/30/2024 12:22 AM EST OV 11/26/2023 [facility]02-19-2025 Hospital Discharge instructions Patient Education [...] Follow these instructions at home: Medicines Take bwre-gew-voxbtag and prescription medicines only as told by [...] or the blood stops without treatment. Take sfpj-che-dbuoqyo and prescription medicines only as told by your health care provider. Drink enough fluid to keep your urine pale yellow. This information is not intended to replace advice given to you by your health care provider. Make sure you discuss any questions you have with your health care provider. Document Revised: 12/19/2020 Document Reviewed: 12/19/2020 [employer] Patient Education 2023 [employer]. 06/22/2024 15:04:17 Overactive Bladder, Adult Overactive Bladder, [...] your health care provider. General instructions Take flfz-ngr-fabdehz and prescription medicines only as told by [...] provider. Document Revised: 01/07/2021 Document Reviewed: 01/07/2021 [employer] Patient Education 2023 [employer]ue[employer]. Follow Up Care 06/22/2024 10:24:57 With:Paul VILLEGAS, PERLA Araujo, URO Address: When: Unknown Comments:F/U pending cystoscopy [facility] 02-19-2025 NotePatient Education Obstetrics and Gynecology [...] health care provider. General instructions ??? Take mspc-ubd-omkroth and prescription medicines only as told by [...] you drink, and whe (more content not included)...[facility]12-28-2024 Evaluation note* Diagnosis Onset Date Resolution Status Admit Date Acute bilateral otitis media acute April 30, 2024 9:54am [facility] Work Phone: 1(792) 467-749612-28-2024 Evaluation note* Diagnosis Onset Date Resolution Status Admit Date Acute bilateral otitis media acute April 30, 2024 9:54am Acute otitis media with effusion acute May 09 9:07am Insomnia acute May 09, 025 9:07am Reaction, situational, acute , to stress acute May 09 9:07am [facility] Work Phone: 1(811) 581-627608-31-2024 Miscellaneous Notes* Telephone Encounter - Jacinta Neri RN - 01/02/2024 6:55 PM EDT Images from the original note were not included. Last OV 11/26/23 CBC/CMP 07/15/23 0 Result Notes Component Ref Range & Units 07/15/23 1147 12/29/22 1028 8/2/23 1050 12/03/22 1050 04/14/22 1119 04/07/22 1140 [...] Low 56 Low CM documented in this encounterUniversity Hospitals [facility]08-31-2024 Telephone encounter Note* Telephone Encounter [...] >59 ml/min/1.73sq.m 46 Low 56 Low CM [facility]07-25-2024 History of Present illness Narrative* Hal Fischer - 11/26/2023 2:00 PM EDT Ortho Nurse - Established Patient Intake Room#: 3 --- Patient presents today for 4 month follow-up of RTHA. Patient states that pain is 2/10today. Patient states that she is improved especially with PT, but is still limping more than she anticipated. Patient has been doing PT at [facility] and this helps, says next week is her last session. Patient states that she is due for nerve block in SI joint at [place] [facility] who she seesregularly, states that she needs approval from Dr. Ohara on this. Date: 11/26/2023 2:25 PM Patient: Bettie Burns MR#: [id number] : 1945 Age: 78 y.o. Referring Physician: [...] LUMPECTOMY FOOT SURGERY HEART CATHETERIZATION no stents AK ENDOMETRIAL CRYOABLATION W/US & ENDOMETRIAL CR REMOVAL [...] month, then 2x/week for maintainence, [facility]/pharmacy #[id number], 165, cm, 02/11/23 10:41:00 EDT, Height/Length [...] month, then 2x/week for maintainence, [facility]/pharmacy #[id number], 165, cm, 02/11/23 10:41:00 EDT, Height/Length [...] anticipated. Patient has been doing PT at [facility] and this helps, says next week is her last session. Patient states that she is due for nerve block in SI joint at [place] [facility] who she seesregularly, states that she needs approval from Dr. Ohara on this. Date: 11/26/2023 2:25 PM Patient: Bettie Burns MR#: [id number] : 1945 Age: 78 y.o. Referring Physician: [...] LUMPECTOMY FOOT SURGERY HEART CATHETERIZATION no stents AK ENDOMETRIAL CRYOABLATION W/US & ENDOMETRIAL CR REMOVAL [...] month, then 2x/week for maintainence, [facility]/pharmacy #[id number], 165, cm, 02/11/23 10:41:00 EDT, Height/Length [...] month, then 2x/week for maintainence, [facility]/pharmacy #[id number], 165, cm, 02/11/23 10:41:00 EDT, Height/Length [...] oxycodone, penicillins, and tramadol. documented in this encounterAvita Health System [facility]07-25-2024 History of Present illness Narrative* Mainor [...] Burns was seen in follow-up in the [place] office. Records are reviewed. She is a [...] avoidance. Past Medical History: Diagnosis Date A-fib ([place]) hx of Arrhythmia 12/2016 ATRIAL FIBRILLATION Arthritis Breast cancer ([place]) 11/14/2015 LEFT COVID-19 03/2020 History of bleeding ulcers Hypertension Migraines Pneumonia d/t covid Prolonged emergence from general anesthesia Visual impairment glasses No data recorded No data recorded No data recorded Past Surgical History: Procedure Laterality Date ABLATION OF DYSRHYTHMIC FOCUS Right nerve ablation, L4 and L5 Afib ablation with SHANICE - CRYO, Rhythmia, ICE N/A 09/28/2018 [facility] ARTHROSCOPY REPAIR ROTATOR CUFF SHOULDER Right 05/16/2020 Performed by Melchor Rivera DO at [facility] ARTHROSCOPY SHOULDER Right 05/16/2020 Performed by Melchor Rivera DO at [facility] BREAST BIOPSY Left 2016 BREAST LUMPECTOMY Left 11/14/2015 WITH RADIATION BREAST SURGERY Left 2013 lumpectomy CATARACT EXTRACTION CHOLECYSTECTOMY COLONOSCOPY Coronary angiogram and left ventricular gram/pressure N/A 08/08/2021 Performed by Bertram Lal MD at [facility] CARDIAC CATH LABS EYE SURGERY lids [...] Needs: No Transportation Needs (07/07/2023) Received from [facility], [facility] PRAPARE - Transportation Lack of Transportation (Medical): No Lack of Transportation (Non-Medical): No Physical Activity: Not on file Stress: Not on file Social Connections: Not on file Interpersonal Safety: Not on file Housing Instability: Low Risk (07/07/2023) Received from [facility], [facility] Housing Stability Vital Sign Unable to [...] MD Referring Physician: Elliot Starks MD [address] [place] [address] documented in this encounterUniversity Hospitals [facility]07-24-2024 Miscellaneous Notes* Telephone Encounter - Medina Jaramillo MA - 11/25/2023 10:56 AM EDT Called patient to remind them to bring their most current copy of their medication list with them to their appt. Patient verbalizes understanding. documented in this encounterUniversity Hospitals [facility]07-24-2024 Telephone encounter Note* Telephone Encounter - Medina Jaramillo MA - 11/25/2023 10:56 AM EDT Called patient to remind them to bring their most current copy of their medication list with them to their appt. Patient verbalizes understanding. [facility]06-17-2024 Miscellaneous Notes* Telephone Encounter - Jacinta Neri RN - 10/19/2023 9:19 AM EDT Last OV 08/25 CMP 07/25 documented in this encounterUniversity Hospitals [facility]06-17-2024 Telephone encounter Note* Telephone Encounter - Jacinta Neri RN - 10/19/2023 9:19 AM EDT Last OV 08/25 CMP 07/25 [facility]05-16-2024 Telephone encounter Note* Telephone Encounter - Matt Adams RN - 09/17/2023 1:30 PM EDT Order faxed to [facility] Julio Pt aware. Matt Adams RN [facility]05-16-2024 Miscellaneous Notes* Telephone Encounter - Matt Adams RN - 09/17/2023 1:30 PM EDT Order faxed to Tore[facility] Julio Pt aware. Matt Adams RN * Telephone Encounter - Matt Adams RN - 09/17/2023 10:18 AM EDT Pt called to request yearly Mammogram order I have pended order as previously completed Pt requests to fax to Nori Lema [phone] BRM/HM: please review and sign if agreeable Matt Adams RN documented in this encounterSouthern [facility]05-16-2024 Telephone encounter Note * Telephone Encounter - Matt Adams RN - 09/17/2023 10:18 AM EDT Pt called to request yearly Mammogram order I have pended order as previously completed Pt requests to fax to Nori Lema [phone] BRM/HM: please review and sign if agreeable Matt Adams RN [facility]04-18-2024 History of Present illness Narrative* Eva Landyrclair - 08/20/2023 2:30 PM EDT Ortho Nurse [...] she is interested in Physcial Therapy through [facility]. Date: 08/20/2023 2:38 PM Patient: Bettie Burns MR#: [id number] : 1945 Age: 78 y.o. Referring Physician: [...] Laterality: Right; Surgeon: Miko Ohara MD; Location: [facility] OR REVISION ARTHROPLASTY HIP BOTH ACETABULAR & FEMORAL COMPONENTS Right 07/07/2023 Laterality: Right; Surgeon: Miko Ohara MD; Location: [facility] OR HIP REPLACEMENT 2021 ABLATION NERVE RADIOFREQUENCY PULSED 09/2018 for a-fib with [facility] APPENDECTOMY BREAST LUMPECTOMY FOOT SURGERY HEART CATHETERIZATION no stents AK ENDOMETRIAL CRYOABLATION REMOVAL BILIARY DUCT/GALLBLADDER CALCULI/DEBRIS PERCUTANEOUS [...] month, then 2x/week for maintainence, [facility]/pharmacy #[id number], 165, cm, 02/11/23 10:41:00 EDT, Height/Length Dosing, [...] arise. All pertinant portions of the clinical sales support specialist documentation was reviewed and I [...] she is interested in Physcial Therapy through [facility]. Date: 08/20/2023 2:38 PM Patient: Bettie Burns MR#: [id number] : 1945 Age: 78 y.o. Referring Physician: [...] LUMPECTOMY FOOT SURGERY HEART CATHETERIZATION no stents AK ENDOMETRIAL CRYOABLATION REMOVAL BILIARY DUCT/GALLBLADDER CALCULI/DEBRIS PERCUTANEOUS [...] month, then 2x/week for maintainence, [facility]/pharmacy #[id number], 165, cm, 02/11/23 10:41:00 EDT, Height/Length [...] oxycodone, penicillins, and tramadol. documented in this encounterAvita Health System [facility]04-08-2024 Miscellaneous Notes* Telephone Encounter - Ray Wills LPN - 08/10/2023 12:45 AM EDT Theresa 08/12/23 Cmp, mg 07/15/23 documented in this encounterUniversity Hospitals [facility]04-08-2024 Telephone encounter Note* Telephone Encounter - Ray Wills LPN - 08/10/2023 12:45 AM EDT Theresa 08/12/23 Cmp, mg 07/15/23 [facility]03-21-20[facility] History of Present illness Narrative* Eva Jose Alberto - 07/23/2023 2:30 PM EDT Ortho Nurse [...] 07/23/2023 2:45 PM Patient: Bettie Burns MR#: [id number] : 1945 Age: 78 y.o. Referring Physician: [...] LUMPECTOMY FOOT SURGERY HEART CATHETERIZATION no stents AK ENDOMETRIAL CRYOABLATION REMOVAL BILIARY DUCT/GALLBLADDER CALCULI/DEBRIS PERCUTANEOUS [...] month, then 2x/week for maintainence, [facility]/pharmacy #[id number], 165, cm, 02/11/23 10:41:00 EDT, Height/Length Dosing, [...] visit. All pertinant portions of the clinical sales support specialist documentation was reviewed. Divine Dougherty I have reviewed the findings of the clinical sales support specialist and agree with their assessment. [...] 07/23/2023 2:45 PM Patient: Bettie Burns MR#: [id number] : 1945 Age: 78 y.o. Referring Physician: [...] LUMPECTOMY FOOT SURGERY HEART CATHETERIZATION no stents AK ENDOMETRIAL CRYOABLATION REMOVAL BILIARY DUCT/GALLBLADDER CALCULI/DEBRIS PERCUTANEOUS [...] month, then 2x/week for maintainence, [facility]/pharmacy #[id number], 165, cm, 02/11/23 10:41:00 EDT, Height/Length [...] oxycodone, penicillins, and tramadol. documented in this [facility]03-15-2024 Miscellaneous Notes* Telephone Encounter - Estela Bueno RN - 07/17/2023 1:28 AM EDT Dose confirmed with patient documented in this encounterUniversity Hospitals [facility]03-15-2024 Telephone encounter Note* Telephone Encounter - Estela Bueno RN - 07/17/2023 1:28 AM EDT Dose confirmed with patient [facility]03-13-2024 Miscellaneous Notes* Telephone Encounter - [...] she was willing. slm documented in this [facility]03-13-2024 Telephone encounter Note* Telephone Encounter - [...] the ER and she was willing. slm [employer] [id number] Miscellaneous Notes* Nursing Notes - Dolly Liao [...] 07, 2023 ATTENDING PHYSICIAN: Miko Ohara M.D. 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 PROCEDURE PERFORMED: Unlisted procedure of right hip and pelvis, dual-row suture anchor repair of 100% massive abductor tear of right hip, work equivalent similar to CPT 98445 Periarticular injection of right hip. ANESTHESIA: General. [...] it as a CPT similar to that, 53148. ATTENDING/ASSISTING PARTICIPATION: This operation could not have been safely performed (without compromising the technical results or length of the procedure) without the assistance of a skilled certified surgical tech/first assistant. A certified surgical tech/first assistant was medically necessary for positioning, retraction [...] OPERATIVE/PROCEDURE NOTE Bettie Burns 77 y.o. female [id number] SURGEON Surgeons and Role: * Miko Ohara MD - Primary HAT LINING BLOCKER MEDINA Richardson ANESTHESIOLOGIST TANK CAR CLEANER: Chance Ngo CRNA; Damián Saenz APRN-TREVA SURGICAL STAFF Soil Science Professor: Kisha Karimi RN; Whit Govea RN [...] Implant Name Type Inv. Item Serial No. Supervisor Est[employer] Emulsifiers Lot No. LRB No. Used Action ANCHORS, 5.5 NON PUNCHING - [id number] ANCHORS, 5.5 NON PUNCHING HIST ARTHREX [id number] Right 1 Implanted ANCHORS, 5.5 NON PUNCHING - [id number] ANCHORS, 5.5 NON PUNCHING HIST ARTHREX [id number] Right 3 Implanted SPECIMENS ID Type Source [...] Miko Ohara MD 07/07/2023 1434 Paula Barrera APRN-HEREDITARY CANCER PROGRAM COORDINATOR July 07, 2023 3:28 PM * Nursing Notes - Chelsea Bledsoe RN - 07/07/2023 10:52 AM EST Unable to doppler right dorsalis pedis pulse. documented in this encounterAvita Health System [facility]03-06-2024 Nurse Note* Nursing Notes - Dolly [...] patient discharged home with daughter and . [facility]03-06-[facility]24 Hospital Discharge instructions* Discharge Instructions* Carmen [...] at all times - Use a leg maple products maker to get in and out of bed [...] - 2023 12:01 PM EST Contact Office ([phone]) if: > Any falls or injuries > [...] incision or operative leg. documented in this [facility]03-06-2024 History of Present illness Narrative* Carmen [...] LUMPECTOMY FOOT SURGERY HEART CATHETERIZATION no stents AK ENDOMETRIAL CRYOABLATION REMOVAL BILIARY DUCT/GALLBLADDER CALCULI/DEBRIS PERCUTANEOUS [...] 0 Equipment Available wheeled walker;elevated toilet seat;shower chair;resource center teacher Cognitive Status Examination Orientation Status (Cognition) oriented [...] Supine to Sit, Rehab Eval Level of [place]: Supine/Sit stand-by assist Physical Assist/Nonphysical Assist: Supine/Sit 1 person assist Transfer Skill: Sit to Stand, Rehab Eval Level of [place]: Sit/Stand contact guard Physical Assist/Nonphysical Assist: Sit/Stand 1 person assist Weight-Bearing Restrictions: Sit/Stand toe touch weight-bearing Assistive Device for Transfer: Sit/Stand wheeled walker Upper Body Dressing Level of [place] independent Physical Assist/Nonphysical Assist set-up required Lower Body Dressing Level of [place] maximum assist (25% patients effort) Physical Assist/Nonphysical Assist 1 person assist Assistive Device resource center teacher General Therapy Interventions Planned Therapy Interventions (OT Eval) ADL retraining;balance training;transfer training Clinical Impression Co-evaluation/co-treatment performed? Yes, combination of simultaneous billable and individual billable skilled care was necessary due to medical complexity and functional deficits Patient Instruction/Education comments Pt instructed on LB dressing techniques donning underwear and shorts min assist in sitting and standing with training on use of resource center teacher to maintain hip precautions Rehab Potential (OT [...] hygiene training Therapist Information License # [id number] 1. Pt will complete LB dressing SBA [...] LUMPECTOMY FOOT SURGERY HEART CATHETERIZATION no stents AK ENDOMETRIAL CRYOABLATION REMOVAL BILIARY DUCT/GALLBLADDER CALCULI/DEBRIS PERCUTANEOUS [...] Supine to Sit, Rehab Eval Level of [place]: Supine/Sit stand-by assist Physical Assist/Nonphysical Assist: Supine/Sit 1 person assist Transfer Skill: Sit To Stand, Rehab Eval [place] (Sit-Stand Transfers) contact guard Physical Assist/Nonphysical Assist: Sit/Stand 1 person assist Weight-Bearing Restrictions: Sit/Stand toe touch weight-bearing Assistive Device For Transfer: Sit/Stand 2 wheeled walker Gait Skills, PT Eval Level of [place]: Gait contact guard Physical Assist/Nonphysical Assist: Gait [...] educated on hip precautions, use of leg maple products maker and weight bearing status. Pteducated to only [...] DISCUSSED WITH DR OHARA. documented in this [facility]03-06-2024 Hospital course Narrative* Chance Mahoney MD [...] month, then 2x/week for maintainence, [facility]/pharmacy #[id number], 165, cm, 02/11/23 10:41:00 EDT, Height/Length [...] Department Dept Phone 07/23/2023 2:30 PM Divine [facility] Orthopedics [phone] documented in this [facility] Surgery Postoperative evaluation and management note* Op Note - Miko Ohara MD - 2023 5:54 AM EST DATE OF PROCEDURE: July 07, 2023 ATTENDING PHYSICIAN: Miko Ohara M.D. 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 PROCEDURE PERFORMED: Unlisted procedure of right hip and pelvis, dual-row suture anchor repair of 100% massive abductor tear of right hip, work equivalent similar to CPT 13044 Periarticular injection of right hip. ANESTHESIA: General. [...] it as a CPT similar to that, 06031. ATTENDING/ASSISTING PARTICIPATION: This operation could not have been safely performed (without compromising the technical results or length of the procedure) without the assistance of a skilled certified surgical tech/first assistant. A certified surgical tech/first assistant was medically necessary for positioning, retraction and instrume ntation. [facility]03-06-[facility] Nurse Note* Nursing Notes - Aidee Field RN - 2023 4:10 AM EST Assessment remains unchanged from previous. Neuro checks WN, abductor pillow in place. Call light within reach. [facility]03-06-2024 Nurse Note* Nursing Notes - Aidee Field RN - 2023 12:05 AM EST Assessment remains unchanged from previous. Neuro checks WNL, abductor pillow in place. Denies futher needs, call light within reach. [facility]03-05-2024 Consult note* Chance Mahoney MD - [...] LUMPECTOMY FOOT SURGERY HEART CATHETERIZATION no stents AK ENDOMETRIAL CRYOABLATION REMOVAL BILIARY DUCT/GALLBLADDER CALCULI/DEBRIS PERCUTANEOUS [...] metabolic panel in the morning GI prophylaxis. [facility]03-05-2024 Consult note* Chance Mahoney MD - [...] LUMPECTOMY FOOT SURGERY HEART CATHETERIZATION no stents AK ENDOMETRIAL CRYOABLATION REMOVAL BILIARY DUCT/GALLBLADDER CALCULI/DEBRIS PERCUTANEOUS [...] the morning GI prophylaxis. documented in this [facility]03-05-2024 Nurse Note* Nursing Notes - Marcella [...] light in reach. FAITH intact flashing green. [facility] Nurse Note* Sara Garcia RN - 07/07/2023 4:00 PM EST Patient transferred to [facility] via cart in stable condition. Report given to RICARDO Kim. Cart left in locked and lowest position with side rails up x2. Snack and call light given to patient. Monitorsand alarms on and attached to patient. * Edison Perez RN - 07/07/2023 3:30 PM EST Patient transported to PACU with Damián TANK CAR CLEANER. Reports given to Sara SILVA at 1530H. * Whit Govea RN - 07/07/2023 2:04 PM EST OR 3 room temp: 65.1F Humidity: 44% Fire score of: 2 documented in this encounterAvita [facility] Nurse Surgical operation note* Sara Garcia RN - 07/07/2023 4:00 PM EST Patient transferred to [facility] via cart in stable condition. Report given to RICARDO Kim. Cart left in locked and lowest position with side rails up x2. Snack and call light given to patient. Monitorsand alarms on and attached to patient. [facility]03-[facility] Nurse Surgical operation note* Edison Perez RN - 07/07/2023 3:30 PM EST Patient transported to PACU with Damián TANK CAR CLEANER. Reports given to Sara SILVA at 1530H. [facility]03-[facility] Surgery Postoperative evaluation and management note* Brief Op Note - MEDINA Richardson - 07/07/2023 3:28 PM EST POST OPERATIVE/PROCEDURE NOTE Bettie Burns 77 y.o. female [id number] SURGEON Surgeons and Role: * Miko Ohara MD - Primary HAT LINING BLOCKER MEDINA Richardson ANESTHESIOLOGIST TANK CAR CLEANER: Chance Ngo CRNA; PALAK Barrett SURGICAL STAFF Soil Science Professor: Kisha Karimi RN; Whit Govea, RICARDO Nurse [...] Implant Name Type Inv. Item Serial No. Supervisor Esters And Emulsifiers Lot No. LRB No. Used Action ANCHORS, 5.5 NON PUNCHING - [id number] ANCHORS, 5.5 NON PUNCHING HIST ARTHREX [id number] Right 1 Implanted ANCHORS, 5.5 NON PUNCHING - [id number] ANCHORS, 5.5 NON PUNCHING HIST ARTHREX [id number] Right 3 Implanted SPECIMENS ID Type Source [...] Miko Ohara MD 07/07/2023 1434 Paula Barrera APRN-HEREDITARY CANCER PROGRAM COORDINATOR July 07, 2023 3:28 PM [facility]03-05-2024 Nurse Surgical operation note* Whit Govea RN - 07/07/2023 2:04 PM EST OR 3 room temp: 65.1F Humidity: 44% Fire score of: 2 [facility]03-05-2024 Nurse Note* Nursing Notes - Chelsea Bledsoe RN - 07/07/2023 10:52 AM EST Unable to doppler right dorsalis pedis pulse. [facility]02-16-2024 Miscellaneous Notes* Telephone Encounter - Jacqueline Sparrow [...] to Dr Ohara office. documented in this encounterUniversity [facility] Telephone encounter Note* Telephone Encounter [...] on risk, holding Eliquis and Celebrex question. [facility] Your Policy [id number] Telephone encounter Note* Telephone Encounter - Mundo Diaz MD - 06/19/2023 12:01 PM EST Okay to proceed with surgery at moderate risk Can use Celebrex Hold Eliquis for 2 days resume after surgery [employer] Work Phone: [phone]) 498-628102-16-2024 Telephone encounter Note* Telephone Encounter - Jacqueline Sparrow RN - 06/19/2023 12:01 PM EST Clearance note faxed back to Dr Ohara office. [employer]02-15-2024 History of Present illness Narrative* Eva Abrams [...] year ago with Dr. Denver Hughes in [place]. Pt states she is looking for a second opinion due to having issues from this past surgery. Date: 06/18/2023 2:32 PM Patient: Bettie Burns MR#: [id number] : 1945 Age: 77 y.o. Referring Physician: Miko Ohara MD Insurance: Payor: MEDICARE AET HMO OR PPO / Plan: MEDICARE AETLumus PPO / Product Type: *No Product type* [...] APPENDECTOMY BREAST LUMPECTOMY FOOT SURGERY HEART CATHETERIZATION AK ENDOMETRIAL CRYOABLATION REMOVAL BILIARY DUCT/GALLBLADDER CALCULI/DEBRIS PERCUTANEOUS [...] tendons as discussed in detail above. 3. Itunc-fo-mbwvhlss amount of fluid along the lateral aspect [...] nasal MRSA screening, scheduling an appointment for [facility] and the potential surgical date, and reviewing [...] APPENDECTOMY BREAST LUMPECTOMY FOOT SURGERY HEART CATHETERIZATION AK ENDOMETRIAL CRYOABLATION REMOVAL BILIARY DUCT/GALLBLADDER CALCULI/DEBRIS PERCUTANEOUS W/ IMAGE REMOVAL CATARACT (PEM) ROTATOR CUFF REPAIR History reviewed. No pertinent family history. Social History Socioeconomic History Marital status: Tobacco Use Smoking status: Never Smokeless tobacco: Never Social Determinants of Health Food Insecurity: No Food Insecurity (06/02/2023) Received from [employer] [facility] Hunger Screening Within the past 12 [...] Morphine Oxycodone Penicillins Tramadol documented in this [facility]01-30-2024 History of Present illness Narrative* Mundo Diaz MD - 06/02/2023 2:30 PM EST Bettie Burns Date of visit: 06/02/2023 Date of : 1945 Age: 77 y.o. Patient Active Problem List Diagnosis Paroxysmal atrial fibrillation ([facility]) Hypertension SOB (shortness of breath) Dyspnea Palpitations [...] issues. Past Medical History: Diagnosis Date A-fib ([place]) hx of Arrhythmia 12/2016 ATRIAL FIBRILLATION Arthritis Breast cancer ([place]) 11/14/2015 LEFT COVID-19 03/2020 History of bleeding ulcers Hypertension Migraines Pneumonia d/t covid Prolonged emergence from general anesthesia Visual impairment glasses No data recorded No data recorded No data recorded Past Surgical History: Procedure Laterality Date ABLATION OF DYSRHYTHMIC FOCUS Right nerve ablation, L4 and L5 Afib ablation with SHANICE - CRYO, Rhythmia, ICE N/A 09/28/2018 [facility] ARTHROSCOPY REPAIR ROTATOR CUFF SHOULDER Right 05/16/2020 Performed by Melchor Rivera DO at [facility] ARTHROSCOPY SHOULDER Right 05/16/2020 Performed by Melchor Rivera DO at [facility] BREAST BIOPSY Left 2016 BREAST LUMPECTOMY Left 11/14/2015 WITH RADIATION BREAST SURGERY Left 2012 lumpectomy CATARACT EXTRACTION CHOLECYSTECTOMY COLONOSCOPY Coronary angiogram and left ventricular gram/pressure N/A 08/08/2021 Performed by Bertram Lal MD at 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 Referring Physician: [...] [x]cane, []bracing Are you followed by a supervisor landscape? [x] [] Name: Dr. Waleska Zhu - [facility] Are you followed by pain management? [x] [] Name: Dr. Cedeno - Xenia Wayne @ [facility] Are you followed by any other specialists? [x] [] Name: Oncolgist - Dr. Choi [facility] Urologist - Dr. Christian Bourne [...] abductor muscles as well as ESR/CRP and [place] and Chromium labs today. I will see [...] APPENDECTOMY BREAST LUMPECTOMY FOOT SURGERY HEART CATHETERIZATION AK ENDOMETRIAL CRYOABLATION REMOVAL BILIARY DUCT/GALLBLADDER CALCULI/DEBRIS PERCUTANEOUS [...] Morphine Oxycodone Penicillins Tramadol documented in this encounterAvita [facility]11-27-2023 Evaluation note* Encounter Date Diagnosis Assessment [...] verbalizes understanding and agrees with tx plan. [facility] Other 10-11-2023 Hospital Discharge instructions Patient Education [...] provider. Document Revised: 08/29/2021 Document Reviewed: 08/29/2021 [employer] Patient Education 2022 Linguee. Follow Up Care 11/06/2022 15:31:52 With:Paul VILLEGAS, PERLA Araujo, URO Address: When:Within 3 Month(s) [facility] [employer] 07-17-2023 Evaluation note* Encounter Date Diagnosis Assessment Notes Treatment Notes Treatment Clinical Notes Nov, Dysuria (ICD-10 - R30.0) [facility] Other 06-29-2023 Evaluation note* Encounter Date Diagnosis Assessment Notes Treatment Notes Treatment Clinical Notes Oct, Frequent UTI (ICD-10 - N39.0) Pt requests Urology referral. Discussed also getting CT to move along process. Oct, Dyshidrotic eczema (ICD-10 - L30.1) Will treat with steroid cream prn [facility] Other 06-26-2023 Evaluation note* Encounter Date Diagnosis Assessment Notes Treatment Notes Treatment Clinical Notes Oct, Dysuria (ICD-10 - R30.0) [facility] Other 05-11-2023 Miscellaneous Notes* Telephone Encounter - Matt Adams RN - 09/11/2022 11:43 AM EDT Order faxed to [facility] and pt is aware. Matt Adams RN * Telephone Encounter - Matt Adams RN - 09/11/2022 9:51 AM EDT Pt called to request yearly Mammogram order I have pended order as previously completed Pt requests to fax to Nori Lema [phone] BRM/HM: please review and sign if agreeable Matt Adams RN documented in this encounterSouthern [facility] Medical Center04-10-2023 Evaluation note* Encounter Date Diagnosis Assessment Notes Treatment Notes Treatment Clinical Notes Aug, Dysuria (ICD-10 - R30.0) [facility] Other 03-16-2023 Evaluation note* Encounter Date Diagnosis [...] - N32.81) chronic and improved on present [facility] Other 02-20-2023 Evaluation note* Encounter Date Diagnosis Assessment Notes Treatment Notes Treatment Clinical Notes Jun, Dysuria (ICD-10 - R30.0) [facility] Other 02-03-2023 Evaluation note* Encounter Date Diagnosis Assessment Notes Treatment Notes Treatment Clinical Notes Jun, OAB (overactive bladder) (ICD-10 - N32.81) [facility] Other 02-01-2023 Evaluation note* Encounter Date Diagnosis Assessment Notes Treatment Notes Treatment Clinical Notes Jun, OAB (overactive bladder) (ICD-10 - N32.81) Patient request to try new medication reviewed side effect profile. Patient declines urology or [facility] referral at this time. Jun, Essential hypertension (ICD-10 - I10) reviewed and updated medications she will follow-up with cardiology in Jun, Hypokalemia (ICD-10 - E87.6) Reviewed and updated medications. Discussed foods that are high in potassium Jun, Right lumbar pain (ICD-10 - M54.50) Follow-up with Dr. Rivera as scheduled in June. She does have limping with her gait. [facility] Other 05-26-2022 Miscellaneous Notes* Telephone Encounter - [...] diagnosis? Mikaela Thompson RN documented in this encounterSouthern Ohio Medical CenterEvaluation + Plan note Future Appointments Appointment Date:05/27/2023 08:45:00 AM Scheduled Provider:Alfreda Miller MD Location:[facility] Appointment Type:URO Office Visit [facility] evaluation + Plan note Future Appointments Appointment Date:07/22/2024 10:30:00 AM Scheduled Provider: Location:[facility] Appointment Type:Urology CALL PAT FT Appointment Date:07/25/2024 08:15:00 AM Scheduled Provider: Location:[facility] Appointment Type:Urology FT [facility] evaluation + Plan note Future Appointments Appointment Date:07/22/2024 10:30:00 AM Scheduled Provider: Location:[facility] Appointment Type:Urology CALL PAT FT Appointment Date:07/25/2024 08:15:00 AM Scheduled Provider: Location:[facility] Appointment Type:Urology FT Diagnostic Tests Pending * Urine Culture 06/22/24 [facility] evaluation + Plan note Future Appointments Appointment Date:09/16/2024 11:30:00 AM Scheduled Provider: Location:[facility] Appointment Type:Urology CALL PAT FT Appointment Date:09/19/2024 08:00:00 AM Scheduled Provider: Location:[facility] Appointment Type:Urology FT [facility] evaluation + Plan note Future Appointments Appointment Date:01/25/2025 08:00:00 AM Scheduled Provider:Maria E Osman PA-C Location:[facility] Appointment Type:URO Office Visit [facility] evaluation note* Diagnosis Encounter for screening mammogram for malignant neoplasm of breast- Primary Other screening mammogram documented in this encounter [facility]* Diagnosis Malignant neoplasm of upper-outer quadrant of left breast in female, estrogen receptor positive (HCC)- Primary documented in this encounter [facility]Eval[facility] noteNo InformationNort [employer] Other Evaluation note* Diagnosis Encounter for screening mammogram for malignant neoplasm of breast- Primary Other screening mammogram documented in this encounter [facility] noteNo assessment information [facility] Work Phone: Evaluation note* Diagnosis Pain in prosthetic joint, initial encounter- Primary Primary osteoarthritis of right hip Primary localized osteoarthrosis, pelvic region and thigh documented in [facility] encounter [facility]* Diagnosis Right hip pain- Primary Pain in joint, pelvic region and thigh Pre-op testing- Primary Preoperative examination, unspecified Essential (primary) hypertension Unspecified essential hypertension Abnormal finding of blood chemistry, unspecified Abnormal coagulation profile Tear of rotator cuff of right hip, initial encounter 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, initial encounter documented in this encounter [facility]* Diagnosis Status post revision of total hip- Primary Hip joint replacement by other means Pre-op testing Preoperative examination, unspecified Tear of rotator cuff of right hip, initial encounter 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, initial encounter Acute postoperative pain of right hip documented in this encounter [facility]* Diagnosis Tear of gluteus minimus tendon, right, initial encounter- Primary documented in this encounter [facility]* Diagnosis Right hip pain- Primary Pain in joint, pelvic region and thigh documented in this encounter [facility]* Diagnosis Onset Date Resolution Status Dysuria noneactive [facility] Work Phone: Evaluation note* Diagnosis Hx of total hip arthroplasty, right- Primary documented in this encounter [facility]* Diagnosis Paroxysmal atrial fibrillation (CMS-HCC)- Primary Atrial fibrillation Primary hypertension Unspecified essential hypertension Chronic coronary artery disease Coronary atherosclerosis of unspecified type of vessel, [place] or graft documented in this encounter [facility]* Diagnosis Paroxysmal atrial fibrillation (CMS-HCC)- Primary Atrial fibrillation Unstable angina (CMS-HCC) Intermediate coronary syndrome SOB (shortness of breath) Shortness of breath documented in this encounter [facility] System[facility] note* Diagnosis Hx of total hip arthroplasty, right- Primary documented in this encounter [facility]* Diagnosis Paroxysmal atrial fibrillation (CMS-HCC) Atrial fibrillation documented in this encounter [facility]* Diagnosis Paroxysmal atrial fibrillation (CMS-HCC) Atrial fibrillation documented in this encounter [facility] System[facility] note* Diagnosis Primary hypertension- Primary Unspecified essential hypertension Coronary artery disease involving [place] coronary artery of [place] heart with unstable angina pectoris (CMS-HCC) [facility]* Diagnosis Paroxysmal atrial fibrillation (CMS-HCC)- Primary Atrial fibrillation Benign hypertension Essential hypertension, benign [facility]* Diagnosis Paroxysmal atrial fibrillation (CMS-HCC)- Primary Atrial fibrillation Primary hypertension Unspecified essential hypertension Palpitations documented in this [facility]* Diagnosis Paroxysmal atrial fibrillation (CMS-HCC) Atrial fibrillation [facility] this [facility]* Diagnosis Onset Date Resolution Status Admit Date Dysuria acute November 29 8:53am [facility] Work Phone: Evaluation note* Diagnosis Seborrheic keratosis, inflamed- Primary Inflamed skin tag Milia Sebaceous cyst documented in this encounter [facility] HealthcareHistory general Narrative - Reported* Type Description Date [...] replacement 12/16/2021 Hospitalization History SEE SURGICAL HX [facility] Other Hospital course Narrative No data available for this section [facility] Hospital Discharge instructions* Attachments The following attachments cannot be sent through Care Everywhere. * [facility] AMB SMOKING CESSATION LINKS documented in this encounterAvita Health System [facility] HospitalHospital Discharge instructions No data available for this section [facility] InstructionsNot on filedocumented in this encounter [...] this section [facility] Jason reason for referral (narrative)* Diagnostic Procedure Only (Routine) - Pending Review Specialty Diagnoses / Procedures Referred By Juan wren Referred To Contact [facility] Diagnoses Encounter for screening mammogram for malignant neoplasm of breast Procedures SHANE SCREENING W YAW SCREENING DIGITAL BREAST TOMOSYNTHESIS BI SCREENING MAMMOGRAPHY BI 2-VIEW BREAST INC Andrew Miguel MD [address] [facility] [place] [address] Imaging [address] [place] [address] Referral ID Status Reason Start Date Expiration Date Visits Requested Visits Authorized [id number] Pending Review Auto-Generat ed Referral 09/26/2021 10/26/2022 1 1 [facility] for referral (narrative)* Diagnostic Procedure Only (Routine) - Pending Review Specialty Diagnoses / Procedures Referred By Juan wren Referred To Contact [facility] Diagnoses Encounter for screening mammogram for malignant neoplasm of breast Procedures SHANE SCREENING W YAW SCREENING DIGITAL BREAST TOMOSYNTHESIS BI SCREENING MAMMOGRAPHY BI 2-VIEW BREAST INC Andrew Miguel MD [address] [place] [address] [facility] [address] [place] [address] Referral ID Status Reason Start Date Expiration Date Visits Requested Visits Authorized [id number] Pending Review Auto-Generat ed Referral 09/11/2022 10/11/2023 1 1 [facility] for referral (narrative)* (Routine) Specialty Diagnoses / Procedures Referred By Juan wren Referred To Contact [employer] [facility] ([facility] [employer]) PORTAL REV LOC [address] [place] [address] Referral ID Status Reason Start Date Expiration Date Visits Re quested Visits Authorized [facility] for referral (narrative)* Consultation (Routine) - Patient to Arrange Specialty Diagnoses / Procedures Referred By Contac t Referred To Contact Physical Therapy Diagnoses Right hip pain Divine Dougherty [address] [place] [phone] Referral ID Status Reason Start Date Expiration Date V isits Requested Visits Authorized [id number] Patient to Arrange 08/20/2023 09/13/2024 1 1 Scheduling Instructions . * Diagnostic X-Ray (Routine) - New Request Specialty Diagnoses / Procedures Referred By Contac t Referred To Contact Diagnoses Right hip pain Procedures XR HIP WITH PELVIS RIGHT Divine Dougherty [address] [place] [address] Referral ID Status Reason Start Date Expiration Date V isits Requested Visits Authorized [id number] New Request 08/20/2023 09/13/2024 1 1 [facility] for referral (narrative)* Diagnostic Procedure Only (Routine) - Pending Review Specialty Diagnoses / Procedures Referred By Contac t Referred To Contact [facility] Diagnoses Encounter for screening mammogram for malignant neoplasm of breast Procedures SHANE SCREENING W YAW SCREENING DIGITAL BREAST TOMOSYNTHESIS BI SCREENING MAMMOGRAPHY BI 2-VIEW BREAST INC Andrew Miguel MD [address] [place] [address] [place] [address] [facility] [address] [place] [address] Referral ID Status Reason Start Date Expiration Date Visits Requested Visits Authorized [id number] Pending Review Auto-Generat ed Referral 09/17/2023 10/16/2024 1 1 T [facility] for referral (narrative)No reason for referral [facility]: Reason for visit Narrative* Diagnostic X-Ray (Routine) - New Request Specialty Diagnoses / Procedures Referred By Juan wren Referred To Contact Diagnoses Hx of total hip arthroplasty, right Procedures XR HIP WITH PELVIS RIGHT Paula Barrera, SOLE MOLDING MACHINE OPERATOR-HEREDITARY CANCER PROGRAM COORDINATOR [address] [phone] Phone: tel: fax: Referral ID Status Reason Start Date Expiration Date V isits Requested Visits Authorized [id number] New Request 07/12/2024 08/06/2025 1 1 [email or web address] Summary Purpose Family History No Family History Records Found Relationship Condition Age at Onset Recorded Date/T nilam father Unknown mother Unknown Advance Directives No Advanced Directives Records FoundDocuments on File Type Date Recorded Patient Varitype Operator Expl anation Advance Directives/Living Will 06/25/2023 9:17 AM DURABLE POWER OF SOAP DRIER OPERATOR FOR HEALTHCARE 06/25/23 Advance Directives/Living Will [...] Documents on File Type Date Recorded Patient Varitype Operator Expl anation Living Will 05/21/2020 9:37 AM Durable Power of Social Insurance Specialist 05/21/2020 9:27 AM Durable Power of Social Insurance Specialist 05/16/2020 6:05 AM Living Will 05/16/2020 6:04 [...] WITH PELVIS RIGHT Miko Ohara MD [address] [place] [address] Referral ID Status Reason Start Date Expiration Date V isits Requested Visits Authorized [id number] New Request 11/16/2023 12/10/2024 1 1 Specialty Diagnoses / Procedures Referred By Contac t Referred To Contact Diagnoses Tear of gluteus minimus tendon, right, initial encounter Procedures XR HIP WITH PELVIS RIGHT Divine Dougherty [address] [place] [address] Referral ID Status Reason Start Date Expiration Date V isits Requested Visits Authorized [id number] New Request 07/20/2023 08/13/2024 1 1 Specialty Diagnoses / Procedures Referred By Contac t Referred To Contact Diagnoses Pain in prosthetic joint, initial encounter Procedures MRI HIP RIGHT WITHOUT CONTRAST AK MRI LOWER EXTREM JT, W/O CONTRAST Miko Ohara MD [address] [place] [address] Referral ID Status Reason Start Date Expiration Date V isits Requested Visits Authorized [id number] New Request 05/14/2023 06/07/2024 1 1 Specialty Diagnoses / Procedures Referred By Contac t Referred To Contact Diagnoses Pain in prosthetic joint, initial encounter Procedures COBALT AND CHROMIUM,WB Miko Ohara MD [address] [place] [address] Referral ID Status Reason Start Date Expiration Date V isits Requested Visits Authorized [id number] New Request 05/14/2023 06/07/2024 1 1 Specialty Diagnoses / Procedures Referred By Contac t Referred To Contact Diagnoses Primary osteoarthritis of right hip Procedures XR HIP WITH PELVIS RIGHT Miko Ohara MD [address] [place] [address] Referral ID Status Reason Start Date Expiration Date V isits Requested Visits Authorized [id number] New Request 05/06/2023 05/30/2024 1 1 Reason *FU 11/12 [place] office Diagnosis 1 Frequent UTI (N39.0) Referral Organization [facility] [place] [facility] Referring Provider First Name Elliot Referring Provider Last Name Raudel Referring Provider Specialty Family [facility] Referred Organization [facility] Referred Provider ALFREDA MILLER Referred Address [address],[place], [place] Referred Provider Specialty Urology Referral Priority Routine General Notes Victoria Lisa 11:03:05 AM >received today, notes attached, along with labs and ins, waiting for notes to be locked before faxing SloanVictoria 11/05/2022 02:44:05 PM >referral faxed Chief Complaint [...] and content) DATE CREATED AUTHOR 10/28/2017 [facility] DATE CREATED AUTHOR AUTHOR'S ORGANIZ ATION 03/21/2020 [facility] DATE CREATED AUTHOR AUTHOR'S ORGANIZ ATION 09/13/2021 [facility] Specialist DATE CREATED AUTHOR AUTHOR'S ORGANIZ ATION 06/11/2022 [facility] DATE CREATED AUTHOR AUTHOR'S ORGANIZ ATION 11/18/2022 [facility] DATE CREATED AUTHOR AUTHOR'S ORGANIZ ATION 05/20/2023 [facility] DATE CREATED AUTHOR AUTHOR'S ORGANIZ ATION 09/19/2023 [facility] DATE CREATED AUTHOR AUTHOR'S ORGANIZ ATION 06/24/2024 [facility] DATE CREATED AUTHOR AUTHOR'S ORGANIZ ATION 06/26/2024 [facility] DATE CREATED AUTHOR AUTHOR'S ORGANIZ ATION 07/17/2024 [facility] DATE CREATED AUTHOR AUTHOR'S ORGANIZ ATION 09/13/2024 [facility] DATE CREATED AUTHOR AUTHOR'S ORGANIZ ATION 09/18/2024 [facility] DATE CREATED AUTHOR AUTHOR'S ORGANIZ ATION 10/28/2024 [facility] DATE CREATED AUTHOR AUTHOR'S ORGANIZ ATION 11/12/2024 [facility] DATE CREATED AUTHOR AUTHOR'S ORGANIZ ATION 12/16/2024 [facility] DATE CREATED AUTHOR AUTHOR'S ORGANIZ ATION 12/22/2024 [facility] DATE CREATED AUTHOR AUTHOR'S ORGANIZ ATION 12/28/2024 [facility] EPIC Source Comments (unrecognize d section and content) In the event this informatio n is protected by the Federal Confidentiality of Alcohol and Drug Abuse Patient Records regulations: The Federal rules restrict any use of the information to criminally investigate or prosecute any alcohol or drug abuse patient.[facility] Center[facility] the event this information is protected by the Federal Confidentiality of Alcohol and Drug Abuse Patient Records regulations: The Federal rules restrict any use of the information to criminally investigate or prosecute any alcohol or drug abuse patient.[facility] Center[facility] the event this information is protected by the Federal Confidentiality of Alcohol and Drug Abuse Patient Records regulations: The Federal rules restrict any use of the information to criminally investigate or prosecute any alcohol or drug abuse patient.[facility] Center[facility] the event this information is protected by the Federal Confidentiality of Alcohol and Drug Abuse Patient Records regulations: The Federal rules restrict any use of the information to criminally investigate or prosecute any alcohol or drug abuse patient.[facility] Reason for Visit (unrecogniz ed section and content) Reason Comments Radiology Mammogram Reason Comments Lab Orders Reason Comments Orders Specialty Diagnoses / Procedures Referred By Juan wren Referred To Contact Diagnoses Primary osteoarthritis of right hip Procedures XR HIP WITH PELVIS RIGHT Miko Ohara MD [address] [place] [address] Referral ID Status Reason Start Date Expiration Date V isits Requested Visits Authorized [id number] New Request 05/06/2023 05/30/2024 1 1 Reason [...] right hip prosthesis, initial encounter [T84.090A] Procedures AK PELVIS/HIP JOINT SURGERY UNLISTED AK REVISE TOTAL HIP REPLACEMENT GLUTEUS MEDIUS TENDON REPAIR REVISION ARTHROPLASTY HIP BOTH ACETABULAR & FEMORAL COMPONENTS Miko Ohraa MD [address] [place] [address] Referral ID Status Reason Start Date Expiration Date Visits Re quested Visits Authorized [id number] 06/19/2023 1 1 Reason Comments Post Op Visit Specialty Diagnoses / Procedures Referred By Contac t Referred To Contact Diagnoses Tear of gluteus minimus tendon, right, initial encounter Procedures XR HIP WITH PELVIS RIGHT Divine Dougherty [address] [place] [address] Referral ID Status Reason Start Date Expiration Date V isits Requested Visits Authorized [id number] New Request 07/20/2023 08/13/2024 1 1 Reason Comments Follow-up Specialty Diagnoses / Procedures Referred By Contac t Referred To Contact Diagnoses Right hip pain Procedures XR HIP WITH PELVIS RIGHT Divine Dougherty [address] [place] [address] Referral ID Status Reason Start Date Expiration Date V isits Requested Visits Authorized [id number] New Request 08/20/2023 09/13/2024 1 1 Reason Comments Yearly Exam With Mammogram Reason Comments Pain Specialty Diagnoses / Procedures Referred By Contac t Referred To Contact Diagnoses Hx of total hip arthroplasty, right Procedures XR HIP WITH PELVIS RIGHT Miko Ohara MD [address] [place] [address] Referral ID Status Reason Start Date Expiration Date V isits Requested Visits Authorized [id number] New Request 11/16/2023 12/10/2024 1 1 Reason [...] YR NO TESTS L/S FRS, SCHED W/PT Reason Comments Suspicious Skin Lesion Care Teams (unrecognized sec tion and content) Cone Machine Feeder Relationship Specialty Start Date End Date Elliot Starks MD [address] [phone] PCP - General Family Practice 11/26/15 Cone Machine Feeder Relationship Specialty Start Date End Date Elliot Starks MD [address] [place] [phone] PCP - General Family Practice 11/26/15 Cone Machine Feeder Relationship Specialty Start Date End Date Elliot Starks MD [address] [place] [phone] PCP - General Family Medicine 11/26/15 Team Status: Inactive Member Role Status Dates Elliot Starks MD Attending Provider Active Cone Machine Feeder Relationship Specialty Start Date End Date Elliot Starks MD [address] [place] [address] [place] [address] PCP - General Family Medicine 05/11/23 Cone Machine Feeder Relationship Specialty Start Date End Date Elliot Starks MD [address] [place] [address] [place] [address] PCP - General Family Medicine 05/11/23 Cone Machine Feeder Relationship Specialty Start Date End Date Elliot Starks MD [address] [place] [address] [place] [address] PCP - General Family Medicine 05/11/23 Cone Machine Feeder Relationship Specialty Start Date End Date Elliot Starks MD [address] [place] [address] [place] [address] PCP - General Family Medicine 05/11/23 Cone Machine Feeder Relationship Specialty Start Date End Date Elliot Starks MD [address] [place] [address] [place] [address] PCP - General Family Medicine 05/11/23 Cone Machine Feeder Relationship Specialty Start Date End Date Elliot Starks MD [address] [place] [address] [place] [address] PCP - General Family Medicine 05/11/23 Cone Machine Feeder Relationship Specialty Start Date End Date Elliot Starks MD [address] [place] [address] PCP - General Family Medicine 05/11/23 Cone Machine Feeder Relationship Specialty Start Date End Date Elliot Starks MD [address] [place] [address] PCP - General Family Medicine 05/11/23 Cone Machine Feeder Relationship Specialty Start Date End Date Elliot Starks MD [address] [place] [phone] PCP - General Family Medicine 11/26/15 Team [...] May 09, 2024 End: May 09, 2024 Cone Machine Feeder Relationship Specialty Start Date End Date Elliot Starks MD [address] [place] [address] PCP - General 03/17/17 Cone Machine Feeder Relationship Specialty Start Date End Date Elliot Starks MD [address] [place] [address] PCP - General 07/15/23 Cone Machine Feeder Relationship Specialty Start Date End Date Elliot Starks MD [address] [place] [address] PCP - General 03/17/17 Cone Machine Feeder Relationship Specialty Start Date End Date Elliot Starks MD [address] [place] [address] PCP - General 03/17/17 Cone Machine Feeder Relationship Specialty Start Date End Date Elliot Starks MD [address] [place] [address] PCP - General 07/15/23 Cone Machine Feeder Relationship Specialty Start Date End Date Elliot Starks MD [address] [place] [address] PCP - General 07/15/23 Cone Machine Feeder Relationship Specialty Start Date End Date Elliot Starks MD [address] [place] [address] PCP - General 07/15/23 Team Status: Active Member Role Status Dates Elliot Starks MD Primary Care Provide cristian, Attending Provider Active Start: May 11, 2024 Team Status: Inactive Member Role Status Dates Elliot Starks MD Primary Care Provider Active Start: June 21, 2024 End: June 21, 2024 Chinedu Farley DO Attending Provider Active Sta rt: June 21, 2024 End: June 21, 2024 Cone Machine Feeder Relationship Specialty Start Date End Date Elliot Starks MD [address] [place] [address], [place] [address] PCP - General Family Medicine 05/11/23 Cone Machine Feeder Relationship Specialty Start Date End Date Elliot Starks MD [address] [place] [address] PCP - General Family Medicine 05/11/23 Cone Machine Feeder Relationship Specialty Start Date End Date Elliot Starks MD [address] [place] [address] PCP - General 07/15/23 Cone Machine Feeder Relationship Specialty Start Date End Date Elliot Starks MD [address] [place] [address] PCP - General 07/15/23 Cone Machine Feeder Relationship Specialty Start Date End Date Elliot Starks MD [address] [place] [address] PCP - General 07/15/23 Cone Machine Feeder Relationship Specialty Start Date End Date Elliot Starks MD [address] [place] [address] PCP - General 07/15/23 Team Status: Inactive Member Role Status Dates Elliot Starks MD Primary Care Provider Active Start: November 29, 2024 End: November 29, 2024 Elliot Starks MD Attending Provider Active St art: November 29, 2024 End: November 29, 2024 Cone Machine Feeder Relationship Specialty Start Date End Date Elliot Starks MD PCP - General Family Medicine 09/26/22 Cone Machine Feeder Relationship Specialty Start Date End Date Elliot Starks MD PCP - General Family Medicine 09/26/22 Goals (unrecognized section and content) Goals may [...] RN)[id number] ($$New Bag$$ - Provider: Damián Saenz APRN-TANK CAR CLEANER)[id number] (Stopped - Provider: Aidee Field RN) Sodium [...] 2 g, Intravenous, Administer over 15 Minutes, PROFESSOR OF SPANISH TO PROCEDURE, 1 dose, Starting on Thu07/07/23 at 1003, Until Thu07/07/23 at 1409, Other, Pre-operative antibiotic, Pre-op/Pre-Proc 1354 (Given - Provider: Melchor Holcomb, SOLE MOLDING MACHINE OPERATOR-[facility]) HYDROmorphone (DILAUDID) injection 0.5 mg [...] BE BASED ON THE PRIMARY CLINICAL RECORDS. [employer] [facility]. provides no warranty or guarantee of the accuracy or completeness of information in this document.
[2024-12-29 11:36] LABS: Anion Gap 9.5; Blood Urea Nitrogen 25.0 mg/dL (7.0-18.0); Calcium 9.6 mg/dL (8.5-10.1); Carbon Dioxide 32.8 mmol/L (21.0-32.0); Chloride 105 mmol/L (98-107); Estimated GFR (African America >60 (>=60 mL/min/1.73m^2); Estimated GFR (Non-African Ame 56 (>=60 mL/min/1.73m^2); Glucose 93 mg/dL (74-106); Potassium 4.3 mmol/L (3.5-5.1); Sodium 143 mmol/L (136-145)
== END 2024-12-29 11:10 | disposition home or self-care (01) ==
PROVIDERS: PCP Family Medicine; Visit Provider Family Medicine
DX: E87.6 Hypokalemia (principal); N18.31 Chronic kidney disease, stage 3a
CPT/HCPCS: 36415; 80048

== ENCOUNTER 2025-01-04 07:37 | Outpatient (OUT) | payer MEDICARE, SELFPAY ==
--- OUTSIDE RECORDS SUMMARY | 2025-01-04 07:42 | XMS_ITS | CCD ---
Author Organization [facility]iniSy[facility] Care Team Providers Care X Ray Developing Machine Operator Name Role Phone PHYSICIAN, DEFAULT Unavailable [...] Elliot Starks Primary Care Unavailable Ricci Perez Hashroberto carlos Consulting Unavailable Elliot Starks MD Primary Care Provider Elliot Starks MD Primary Care Provider Elliot Starks MD Primary Care Provider [phone] Alfreda Miller Attending Unavailable Maria E Osman [...] Unavailable Elliot Starks MD Primary Care Provider [phone] Alfreda Milelr Attending Unavailable Jean Pierre MARTE Admitting Unavailable Jean Pierre MARTE Attending Unavailable Maria E Osman Attending Unavailable Alfreda Miller Referring Unavailable Maria E Osman Attending Unavailable Alfreda Miller Referring Unavailable Alfreda Miller Admitting Unavailable Alfreda Miller Attending Unavailable RADHA MART Attending Unavailable RAUDEL ELLIOT E Referring Unavailable STARKS, ELLIOT E Primary Care Unavailable BIALECKI, DIVINE Referring Unavailable RAUDEL ELLIOT E Primary Care Unavailable ROSANGELA MONTAGUE Referring Unavailable SAI STARKSIA E Primary Care Unavailable Elliot Starks MD Primary Care Provider Elliot Starks MD Attending Provider [phone] Agusto VILLEGAS, Daisy Dietz Attending Unavailable Agusto VILLEGAS, Andrius Vaudrey Attending Unavailable Agusto VILLEGAS, Andrius Vytdannielle Attending Unavailable Agusto VILLEGAS, Andrius J Luis Attending Unavailable ELLIOT STARKS Primary Care Unavailable GOVIND SNOW Attending Unavailable Elliot Starks MD Primary Care Provider [phone] RADHA ESPINAL Attending Unavailable Govind Snow DO Attending Provider Unavailable Ayanna Saini CMA Attending Provider Unavaila ble Allergies Allergy Classification Reported Allergen(s) Allergy Type Date of Onset Reaction(s) Facility (20 sources) Acetaminophen / HYDROcodone; Translations: [HYDROCODONE-ACET AMINOPHEN] Drug Allergy 03-19-20 17 Unknown, Itching, Nausea Only, Rash [facility] (20 sources) Baclofen; Translations: [baclofen] Drug Allergy 03-19-20 17 Unknown, Itching, Rash [facility] (20 sources) Codeine; Translations: [codeine] Drug Allergy 08-09-19 09 Unknown, Itching, Rash [facility] (20 sources) levoFLOXacin; Translations: [levofloxacin] Drug Allergy 03-19-20 17 Unknown, Itching, Nausea Only, Rash [facility] (20 sources) Morphine; Translations: [morphine] Drug Allergy 08-09-19 09 [facility] (17 sources) oxyCODONE; Translations: [OXYCODONE] Drug Allergy 12-03-19 16 [facility] (13 sources) Penicillins; Translations: [PENICILLINS] Drug Allergy 12-03-19 16 Hives, Rash [facility] (1 source) Baclofen Drug Allergy [facility] (1 source) Codeine Drug Allergy [facility] (17 sources) levoFLOXacin; Translations: [Levaquin] Drug Allergy Unknown [facility] (1 source) Morphine Drug Allergy 05-04-[address] [facility] (1 source) oxyCODONE Drug Allergy 05-04-[address] [facility] (1 source) Penicillins Drug allergy (disorder) 05-04-[address] [facility] (6 sources) traMADol; Translations: [Ultram] Drug Allergy [facility] (11 sources) Codeine Drug Allergy Unknown [facility] Other (20 sources) Penicillin; Translations: [penicillin] Drug Allergy Unknown [facility] (20 sources) traMADol; Translations: [tramadol] Drug Allergy 07-13-19 20 Itching, Rash [facility] (20 sources) zolpidem; Translations: [zolpidem] Drug Allergy 07-04-19 23 Unknown, Hives [facility] (11 sources) Penicillins Drug Allergy 12-03-19 16 Hives, Rash [facility] (1 source) Non-steroidal anti-inflammatory agent Drug allergy 02-02-20 13 Unknown [facility] Other (20 sources) sulfADIAZINE; Translations: [SULFADIAZINE] Drug Allergy 07-04-19 Comment:[facility] (1 source) Ultram *ANALGESICS - OPIOID* Propensity to adverse reactions Unknown [facility] Other (1 source) Vioxx *ANALGESICS - ANTI-INFLAMMATORY * Propensity to adverse reactions Unknown [facility] Other (1 source) Penicillin G Benzathine & Proc Drug allergy Unknown [facility] Other (1 source) Morphine Sulfate (Concentrate) *ANALGESICS - OPIOI Propensity to adverse reactions Unknown [facility] Other (1 source) Allergies Reconciled Propensity to adverse reactions Unknown [facility] Other (1 source) patient allergy list reviewed by nurse or physicia Propensity to adverse reactions 02-02-20 Comment:Done [facility] Other (1 source) Vicodin *ANALGESICS - OPIOID* Propensity to adverse reactions Unknown [facility] Other (7 sources) calcitonin Drug allergy 10-28-19 24 Unknown, [facility] (15 sources) Penicillins Propensity to adverse reactions to drug 09-13-19 23 Unknown [facility] (1 source) Acetaminophen / HYDROcodone; Translations: [Vicodin] Drug Allergy [facility] (1 source) Adhesive Tape; Translations: [Tape] Propensity to adverse reactions (disorder) [facility] (10 sources) Latex Propensity to adverse reactions to drug 06-19-19 24 [facility] (10 sources) *Adhesive Tape Propensity to adverse reactions 07-04-19 23 [facility] (8 sources) Cephalexin Drug Allergy 07-09-19 24 Nausea Only, Dry Mouth, Flushing [facility] (6 sources) Acetaminophen Drug Allergy 10-28-19 24 [facility] (6 sources) HYDROcodone Drug Allergy 10-28-19 24 [facility] (6 sources) Penicillin G Benzathine Allergy to substance 10-28-19 24 [facility] (20 sources) rofecoxib; Translations: [ROFECOXIB] Drug Allergy 07-04-19 [facility] (19 sources) Adhesive agent; Translations: [ADHESIVE] Propensity to adverse reactions to drug 07-04-19 [facility] (20 sources) penicillin G benzathine / penicillin G procaine; Translations: [PENICILLIN G BENZATHIN,PROCAIN ] Drug Allergy 07-04-19 [facility] (4 sources) Morphine; Translations: [Morphine Sulfate] Drug Allergy [facility] (4 sources) zolpidem; Translations: [Ambien] Drug Allergy [facility] (7 sources) Penicillins Propensity to adverse reactions to drug 12-03-19 Rash, [facility] (3 sources) Baclofen Drug Allergy 09-13-19 Rash [facility] (1 source) Adhesive agent Propensity to adverse reactions to drug 07-04-19 [facility] Medications Current Medications Medication Drug Class(es) Dates [...] MG PO Twice daily April 30, 2024 11:32am Complies with drug therapy take 2 tablets by mo [facility] every twelve hours apixaban 2.5 MG tablet Take 2 tablets by mouth every 12 hours. Active apixaban 2.5 MG tablet Take by mouth every 12 hours. 0 Active Comment on above: Take 5 mg by mouth t wice daily. ascorbic acid 226 mg / beta carotene [id number] unt / cuprous oxide 0.8 mg / dl-alpha tocopheryl acetate 200 unt / zinc oxide 34.8 mg oral capsule (14 sources) Vitamin C Start: 10-28-2023 take 1 capsule by mouth in the morning vitamins A,C,N-luaf-cimuno (ICAPS AREDS) 4,296 mcg-226 mg-90 mg capsule Take 1 capsule by mouth in the morning and 1 capsule before bedtime. 10/28/2023 Active Start: 10-28-2023 take 1 capsule by mo [facility] twice daily Vitamins A,C,V-Sqmm-Gzggqz (Preservision Areds) 4,296 mcg-226 mg-90 mg capsule Active 1 CAP PO Twice daily October 28, 2023 12:00am Complies with drug therapy atenolol 50 mg oral tablet (20 sources) beta-Adrenergic Philip Start: 2023 End: 2023 take 75 mg by mouth once daily 75 mg, Oral, DAILY, First dose on Thu07/08/23 at 0900, Until Discontinued Start: 06-24-2023 End: 12-27-2024 take 1 tablet by mouth once daily Atenolol 50 mg tablet Active 50 MG PO Daily June 24, 2023 1:00am Complies with drug therapy Start: 09-10-2022 End: 07-06-2024 take 1.5 tablets [...] MG PO Daily June 24, 2023 1:00am Complies with drug therapy Start: 05-27-2023 BACLOFEN 10 MG TABLET BACLOFEN [...] Jul, Active cephalexin 500 mg oral capsule (2 sources) Cephalosporin Antibacterial Start: 12-29-2024 take 1 capsule by mouth three times daily Cephalexin 500 mg capsule Active 500 MG PO Three times daily 21 11December 29, 2024 12:00am Complies with drug therapy Start: 07-07-2023 End: 07-14-2023 take 1 capsule [...] as needed. cycloSPORINE 0.5 mg/ml ophthalmic suspension (6 sources) Calcineurin Inhibitor Immunosuppressant Start: 10-28-2023 take 0.05 drop(s) into the eye(s) every twelve hours Cyclosporine (Restasis Multidose) 0.05 % drops Active 1 DROPS EYE-BOTH Every 12 hours October 28, 2023 12:00am Complies with drug therapy Start: 10-28-2023 take 0.05 drop(s) in to [...] 1 month, then 2x a week afterwards, [facility]/pharmacy #[id number], 165, cm, 06/22/24 13:05:00 EST, [...] x 1 month, then 2x/week for maintainence, [facility]/pharmacy #[id number], 165, cm, 02/11/23 10:41:00 EDT, Height/Length Dosing, 77.5, kg, 02/11/23 10:41:00 EDT, Weight Dosing Start Date: 02/11/23 Status: Ordered flecainide acetate 50 mg oral tablet (20 sources) Antiarrhythmic Start: 07-15-2023 End: 08-06-2024 take 1 tablet by mouth every twelve hours Flecainide 50 mg tablet Active 50 MG PO Every 12 hours October 28, 2023 12:00am Complies with drug therapy Start: 07-15-2023 End: 08-06-2024 take 1 tablet [...] Diuretic Start: 2022 End: 2024 take 1 tablet by mouth once daily Hydrochlorothiazide 25 mg tablet Active 25 MG PO Daily June 24, 2023 1:00am Complies with drug therapy hydroCHLOROthiazide 25 mg / losartan potassium 100 [...] 20 mg tablet Active 0 .ROUTE .COMPLEX March 21, 2024 5:38pm TAKE 1 TABLET DAILY Complies with drug therapy Start: 03-21-2024 Lisinopril 20 mg tablet Active 0 .ROUTE .COMPLEX March 21, 2024 4:38pm TAKE 1 TABLET [...] Daily, # 30 tab(s), Refills(s) 11, Pharmacy: [facility]/pharmacy #[id number], 165, cm, 02/11/23 10:41:00 EDT, Height/Length Dosing, [...] capsule (20 sources) Proton Pump Inhibitor Start: End: take 1 capsule by mouth once daily Omeprazole 40 mg capsule,delayed release(DR/EC) Active 40 MG PO Daily December 19, 2024 8:22am Complies with drug therapy Start: 12-22-2023 End: 04-30-2024 Omeprazole 40 mg [...] not crush, chew, or split. . Active microencapsulated potassium chloride 20 meq extended release oral tablet (20 sources) Start: 12-28-2024 take 1 tablet by mouth once daily at mealtime Potassium Chloride (Klor-Con M20) 20 mEq tablet,ER particles/crystals Active 20 MEQ PO Daily December 28, 2024 12:00am FreeTextSi tablet with food Orally Once a day; Note: Source Status: Taking; Provider: Raudel Hawthorne ( ) Complies with drug therapy Start: 06-22-2024 Potassium Chlo ride (Bib-Thuy-Ekw 10) 10 mEq oral tablet, extended release 10 mEq = 1 tab(s), Refills(s) 0 Start Date: 06/22/24 Status: Ordered Repeat number: 1 Start: 06-22-2024 Potassium Chlo ride (Wug-Vbsg-Bli 10) 10 mEq oral tablet, extended release [...] needed for migraine headache May 23, 2024 2:02pm Complies with drug therapy Start: 09-12-2016 SUMAtriptan 25 mg Tab 25 mg = 1 tab(s), Refills(s) 0 Start Date: 06/22/24 Status: Ordered Repeat number: 1 Comment on above: Take 25 mg by mouth as needed. temazepam 30 mg oral capsule (20 sources) Benzodiazepine Start: take 1 capsule by mouth once daily at bedtime as needed Temazepam 30 mg capsule Active 30 MG PO Daily at bedtime as needed December 28, 2024 12:00am Complies with drug therapy Start: 08-23-2018 End: 11-08-2024 take 1 capsule [...] bedtime as needed for Sleep. 0 Active tiZANidine 4 mg oral tablet (1 source) Central alpha-2 Adrenergic Agonist Start: 12-29-2024 take 1 tablet by mouth once daily at bedtime as needed Tizanidine 4 mg tablet Active 4 MG PO Daily at bedtime as needed for muscle spasticity December 29, 2024 12:00am Complies with drug therapy triamcinolone acetonide 1 mg/ml topical cream (2 sources) Corticosteroid Start: 10-30-2022 Triamcinolone Acetonide 0.1 % 1 application Externally Twice a day for 7 days Oct, Active trospium chloride 20 mg oral tablet (20 sources) Cholinergic Muscarinic Antagonist Start: 06-29-2023 take 1 tablet by mouth twice daily Trospium 20 mg tablet Active 20 MG PO Twice daily June 29, 2023 2:33pm Complies with drug therapy Start: 06-24-2023 End: 06-29-2023 take 1 tablet [...] 2023 2:33pm Trospium Chlorid e Active Vitamins A,C,Z-Obot-Jzmaug (Preservision Areds) 4,296 mcg-226 mg-90 mg capsule (4 sources) Start: 10-28-2023 take 1 capsule by mouth twice daily Vitamins A,C,D-Zkza-Mrufkm (Preservision Areds) 4,296 mcg-226 mg-90 mg capsule Active 1 CAP PO Twice daily October 27, 2023 11:00pm Start: 10-28-2023 take [address] [facility] twice daily Vitamins A,C,V-Axmy-Yfctps (Preservision Areds) 4,296 mcg-226 mg-90 mg capsule [...] Start: 07-07-2023 take 2 tablets by mo [facility] every four hours as needed Acetaminophen 325 [...] at Discharge) azithromycin 250 mg oral tablet (9 sources) Macrolide Antimicrobial Start: 04-30-2024 End: 05-09-2024 [...] Post-op/Post-Proc docusate sodium 50 mg / sennosides, [facility] 8.6 mg oral tablet (1 source) Start: [...] Post-op/Post-Proc ketorolac tromethamine 10 mg oral tablet (6 sources) Nonsteroidal Anti-inflammatory Drug, Cyclooxygenase Inhibitor Start: 06-24-2023 End: 06-29-2023 take 1 tablet by mouth once Ketorolac 10 mg tablet Discontinued 10 MG PO Once June 24, 2023 1:00am June 29, 2023 2:31pm methylPREDNISolone 4 mg oral tablet (6 sources) Corticosteroid Start: 06-24-2023 End: 06-29-2023 Methylprednisolone 4 mg tablets,dose pack Discontinued 4 MG PO .COMPLEX June 24, 2023 1:00am June 29, 2023 2:31pm 4 mg orally; nitrofurantoin, macrocrystals 100 mg oral capsule (2 sources) Nitrofuran Antibacterial Start: 11-29-2024 End: 12-29-2024 take 1 capsule by mouth twice daily at mealtime Nitrofurantoin Macrocrystal 100 mg capsule Discontinued 100 MG PO Twice daily November 29, 2024 12:00am December 29, 2024 11:00am must administer with a meal/food Omeprazole 40 mg capsule,delayed release(DR/EC) (2 sources) [...] citrate 100 mg extended release oral tablet (6 sources) Muscle Relaxant Start: 06-24-2023 End: 06-29-2023 [...] 0 Active predniSONE 20 mg oral tablet (4 sources) Start: 04-30-2024 End: 05-09-2024 take 1 [...] mixed by pharmacy NOT for IV use, Intra-op/Intra-Pr oc 1000 ml sodium chloride 9 mg/ml injection [...] use per package instructions, Post-op/Post-Proc tranexamic acid 650 mg oral tablet (1 source) Antifibrinolytic Agent Start: 07-07-2023 End: 07-07-2023 take 1 dose by mouth every two hours 1,950 mg, Oral, ONCE DIRECTED, 1 dose, Starting on Thu07/07/23 at 1003, Until Thu07/07/23 at 1042, See admin instructions, Administer 2 hours preop, Pre-op/Pre-Proc traZODone hydrochloride 50 mg oral tablet (15 sources) Serotonin Reuptake Inhibitor Start: 05-09-2024 End: 11-15-2024 take 1 tablet by mouth once daily at bedtime as needed Trazodone 50 mg tablet Discontinued 50 MG PO Daily at bedtime as needed for insomnia August 30, 2024 1:45pm November 15, 2024 3:54pm 200 ml vancomycin 5 mg/ml injection (2 [...] Disorder of rectum 02-05-2023 Episodic Anxiety disorders (5 sources) Acute stress disorder; Translations: [Acute stress [...] unspecified] Onset: 12-11-2016 Resolved: 12-30-2019 03-24-2018 Chronic Chronic kidney disease (2 sources) Chronic kidney disease stage 3A ; Translations: [Stage 3a chronic kidney disease] 12-29-2024 Chronic Complication of device; implant or graft [...] Onset: 10-06-2017 Chronic Fluid and electrolyte disorders (8 sources) Dehydration; Translations: [Hypokalemia] Onset: 06-11-2022 Episodic [...] 05-06-2023 Chronic Other aftercare (1 source) Other halfway (current) drug therapy; Translations: [OTH SHANK STITCHER CURRENT DRUG THERAPY] Onset: 06-11-2022 Episodic Other aftercare (3 sources) Long-term current use of anticoagulant; Translations: [halfway [...] 09-12-2022 09-12-2022 Chronic Other nervous system disorders (7 sources) Hip pain; Translations: [Other acute postprocedural [...] 05-10-2015 Episodic Otitis media and related conditions (10 sources) Acute bilateral otitis media ; Translations: [...] UTERUS] Onset: 06-11-2022 Episodic Residual codes; unclassified (17 sources) Insomnia; Translations: [Insomnia, unspecified] 08-18-2023 Episodic [...] Retinal detachments; defects; vascular occlusion; and retinopathy (5 sources) Degenerative disorder of macula ; Translations: [...] Syncope and collapse; Translations: [Near syncope] Onset: 12-18-2024 Episodic Unclassified (1 source) CONTACT W/AND (SUSP) [...] Coronary arteriosclerosis; Translations: [Atherosclerotic heart disease of [place] coronary artery without angina pectoris] Onset: 07-29-2021 [...] Escherichia coli ORGANISM ID: 1 (ESCHERICHIA COLI) ------ ANTIBIOTIC INTERPRETATION AUBREY STATUS REFERENCE RANGE ------ Ampicillin R >=32 F Susceptible <=8 , [...] , Intermediate >32 , Resistant >64 Abnormal [facility] Comment on above: Performed By: #### 2 4356-8 #### [facility] CLIA [id number] #### [phone] #### [facility] CLIA [id number] [address] [place] [address] ED NOTEon 12-19-2024 ED NOTE HNO ID: [id number] Author: ADAM PORTILLO RN Service: ? Author Type: Registered Nurse Type: ED Notes Filed: 12/19/2024 01:18 Note Text: Patient discharged per MD orders. Discharge instructions reviewed. Pt encouraged to return to ED if worsening signs or symptoms occur. Prescriptions called into pharmacy of choice. Follow up care discussed. Pt left ED in stable condition. Normal [facility] HIGH SENSITIVITY TROPONIN T (THIRD) 3 HRS AFTER INITIALon 12-19-2024 Troponin T.cardiac High sensitivity method [Mass/Vol] 13 ng/L High <12 [facility] Comment on above: Order Comment: Speci men Type: BLOOD SPECIMENOrdering Facility: [facility] Address: [address] [place] [address] Performed By: #### 2 4356-8 #### [facility] CLIA [id number] [address] [place] [address] #### [phone] #### [facility] CLIA [id number] [address] [place] [address] Laboratory - Chemistry and C hemistry - challengeOrdered By: Govind Snow on 12-19-2024 Bilirubin Ql (U) Negative Negative [facility] Glucose (U) [Mass/Vol] Negative Trace , Negative [facility] Ketones Ql (U) Negative Negative, Trace [facility] pH (U) 6.0 [pH] 5.0-8.0 [facility] Specific gravity (U) [Rel density] 1.028 1.005-1.030 [facility] Laboratory - Specimen inform ationOrdered By: Govind Snow on 12-19-2024 Appearance (U) Turbid Abnormal Clear [facility] Color (U) Light Yellow yellow [facility] - UrinalysisOrder ed By: Govind Snow on 12-19-2024 Hyaline casts LM Ql (Urine sed) 1-3 /LPF Abnormal 0 /LPF [facility] Leukocyte esterase Test strip Ql (U) 500 Felipe/uL Abnormal Negative, 25 Felipe/uL [facility] Nitrite Ql (U) 2+ Abnormal Negative [facility] Protein Ql (U) Negative Trace, Negative [facility] No Panel InformationOrdered By: Govind Snow on 12-19-2024 Troponin T Hi Sens Cardiac Interven 13 ng/L High <12 [facility] Urine Bacteria Rare [HPF] Abnormal None Seen [facility] Urine Occult Blood Trace Negative, Trace [facility] Urine RBC 6-10 /HPF Abnormal 0-3 /HPF [facility] Urine Squamous Epithelial Cells Few [HPF] [facility] Urine Urobilinogen Normal Normal [facility] Urine WBC >25 /HPF Abnormal 0-5 /HPF [facility] Urinalysis complete panel (U )on 12-19-2024 Bacteria LM.HPF (Urine sed) [#/Area] Rare Abnormal None Seen [facility] Comment on above: Order Comment: Speci men Type: URINE SPECIMEN Ordering Facility: [facility] Address: [address] [place] [address] Performed By: #### 2 4356-8 #### [facility] CLIA [id number] [address] [place] [address] [place] #### 630-4 #### [facility] CLIA [id number] [address] [place] [address] [place] Bilirubin Ql (U) Negative Normal Negative [facility] Comment on above: Order Comment: Speci men Type: URINE SPECIMEN Ordering Facility: [facility] Address: [address] [place] [address] Performed By: #### 2 4356-8 #### [facility] CLIA [id number] [address] [place] [address] [place] #### 630-4 #### [facility] CLIA [id number] [address] [place] [address] [place] Clarity (Unsp spec) Turbid Abnormal Clear [facility] Comment on above: Order Comment: Speci men Type: URINE SPECIMEN Ordering Facility: [facility] Address: [address] [place] [address] Performed By: #### 2 4356-8 #### [facility] IA [id number] [address] [place] [address] [place] #### 630-4 #### [facility] CLIA [id number] [address] [place] [address] [place] Color (U) Light Yellow Normal yellow [facility] Comment on above: Order Comment: Speci men Type: URINE SPECIMEN Ordering Facility: [facility] Address: [address] [place] [address] Performed By: #### 2 4356-8 #### [facility] IA [id number] [address] [place] [address] [place] #### 630-4 #### [facility] CLIA [id number] [address] [place] [address] [place] Epithelial cells LM.HPF (Urine sed) [#/Area] Few Normal [facility] Comment on above: Order Comment: Speci men Type: URINE SPECIMEN Ordering Facility: [facility] Address: [address] [place] [address] Performed By: #### 2 4356-8 #### [facility] IA [id number] [address] [place] [address] [place] #### 630-4 #### [facility] CLIA [id number] [address] [place] [address] [place] Glucose Test strip (U) [Mass/Vol] Negative Normal Trace, Negative [facility] Comment on above: Order Comment: Speci men Type: URINE SPECIMEN Ordering Facility: [facility] Address: [address] [place] [address] Performed By: #### 2 4356-8 #### [facility] CLIA [id number] [address] [place] [address] [place] #### 630-4 #### [facility] CLIA [id number] [address] [place] [address] [place] Hemoglobin Ql (U) Trace Normal Negative, Trace [facility] Comment on above: Order Comment: Speci men Type: URINE SPECIMEN Ordering Facility: [facility] Address: [address] [place] [address] Performed By: #### 2 4356-8 #### [facility] CLIA [id number] [address] [place] [address] [place] #### 630-4 #### [facility] CLIA [id number] [address] [place] [address] [place] Hyaline casts (Urine sed) [#/Area] 1-3 /LPF Abnormal 0 /LPF [facility] Comment on above: Order Comment: Speci men Type: URINE SPECIMEN Ordering Facility: [facility] Address: [address] [place] [address] Performed By: #### 2 4356-8 #### [facility] CLIA [id number] [address] [place] [address] [place] #### 630-4 #### [facility] CLIA [id number] [address] [place] [address] [place] Ketones Ql (U) Negative Normal Negative, Trace [facility] Comment on above: Order Comment: Speci men Type: URINE SPECIMEN Ordering Facility: [facility] Address: [address] [place] [address] Performed By: #### 2 4356-8 #### [facility] CLIA [id number] [address] [place] [address] [place] #### 630-4 #### [facility] CLIA [id number] [address] [place] [address] [place] Leukocyte esterase Test strip Ql (U) 500 Felipe/uL Abnormal Negative, 25 Felipe/uL [facility] Comment on above: Order Comment: Speci men Type: URINE SPECIMEN Ordering Facility: [facility] Address: [address] [place] [address] Performed By: #### 2 4356-8 #### [facility] CLIA [id number] [address] [place] [address] [place] #### 630-4 #### [facility] CLIA [id number] [address] [place] [address] [place] Nitrite Ql (U) 2+ Abnormal Negative [facility] Comment on above: Order Comment: Speci men Type: URINE SPECIMEN Ordering Facility: [facility] Address: [address] [place] [address] Performed By: #### 2 4356-8 #### [facility] CLIA [id number] [address] [place] [address] [place] #### 630-4 #### [facility] CLIA [id number] [address] [place] [address] [place] pH (U) 6.0 [pH] Normal 5.0-8.0 [facility] Comment on above: Order Comment: Speci men Type: URINE SPECIMEN Ordering Facility: [facility] Address: [address] [place] [address] Performed By: #### 2 4356-8 #### [facility] CLIA [id number] [address] [place] [address] [place] #### 630-4 #### [facility] CLIA [id number] [address] [place] [address] [place] Protein (U) [Mass/Vol] Negative Normal Trace , Negative [facility] Comment on above: Order Comment: Speci men Type: URINE SPECIMEN Ordering Facility: [facility] Address: [address] [place] [address] Performed By: #### 2 4356-8 #### [facility] CLIA [id number] [address] [place] [address] [place] #### 630-4 #### [facility] CLIA [id number] [address] [place] [address] [place] RBC LM.HPF (Urine sed) [#/Area] 6-10 /HPF Abnormal 0-3 /HPF [facility] Comment on above: Order Comment: Speci men Type: URINE SPECIMEN Ordering Facility: [facility] Address: [address] [place] [address] Performed By: #### 2 4356-8 #### [facility] IA [id number] [address] [place] [address] [place] #### 630-4 #### [facility] CLIA [id number] [address] [place] [address] [place] Specific gravity (U) [Rel density] 1.028 Normal 1.005-1.030 [facility] Comment on above: Order Comment: Speci men Type: URINE SPECIMEN Ordering Facility: [facility] Address: [address] [place] [address] Performed By: #### 2 4356-8 #### [facility] IA [id number] [address] [place] [address] [place] #### 630-4 #### [facility] CLIA [id number] [address] [place] [address] [place] Urobilinogen Ql (U) Normal Normal Normal [facility] Comment on above: Order Comment: Speci men Type: URINE SPECIMEN Ordering Facility: [facility] Address: [address] [place] [address] Performed By: #### 2 4356-8 #### [facility] IA [id number] [address] [place] [address] [place] #### 630-4 #### [facility] CLIA [id number] [address] [place] [address] [place] WBC LM.HPF (Urine sed) [#/Area] /[HPF] Abnormal 0-5 /HPF [facility] Comment on above: Order Comment: Speci men Type: URINE SPECIMEN Ordering Facility: [facility] Address: [address] [place] [address] Performed By: #### 2 4356-8 #### [facility] CLIA [id number] [address] [facility] STATES [facility] #### 630-4 #### [facility] CLIA [id number] [address] [place] [address] [place] ALLIED HEALTHon 12-18-2024 ALLIED HEALTH HNO ID: [id number] Author: VAN WAHL Tech Service: Radiology Author Type: Metal Furniture Polisher Type: Allied Health Filed: 12/18/2024 22:22 Note [...] PATIENT PRESENTS WITH AN IMPLANTABLE OR ATTACHED FERRY ENGINEER: No RADIOLOGY DEPARTMENT: CT; Exam(s) Completed: Brain and PE Study PERIPHERAL IV DATA: Inpatient: see LDA documentation SIGNED BY: Cherrie Martin December 18, 2024 9:44 PM Normal [facility] Basophils Auto (Bld) [#/Vol] Ordered By: Govind Snow on 12-18-2024 Basophils (Bld) [#/Vol] 0.09 10*3/uL <0.11 [facility] Basophils/100 WBC Auto (Bld) Ordered By: Govind Snow on 12-18-2024 Basophils/100 WBC (Bld) 1.2 % F [facility] Blood manual differential co mment interpretation narrativeOrdered By: Govind Snow on 12-18-2024 Manual differential comment Murtaza (Bld) [Interp] Auto [facility] CBC W Auto Differential pane l (Bld)on 12-18-2024 Basophils (Bld) [#/Vol] 0.09 10*3/uL Normal <0.11 [facility] Comment on above: Order Comment: Speci men Type: BLOOD SPECIMEN Ordering Facility: [facility] Address: [address] [place] [address] Performed By: #### 5 7021-8 #### [facility] CLIA [id number] [address] [place] [address] [place] Basophils/100 WBC (Bld) 1.2 % Normal [facility] Comment on above: Order Comment: Speci men Type: BLOOD SPECIMEN Ordering Facility: [facility] Address: [address] [place] [address] Performed By: #### 5 7021-8 #### [facility] CLIA [id number] [address] [place] [address] [place] Differential cell count method Nom (Bld) Auto Normal [facility] Comment on above: Order Comment: Speci men Type: BLOOD SPECIMEN Ordering Facility: [facility] Address: [address] [place] [address] Performed By: #### 5 7021-8 #### [facility] CLIA [id number] [address] [place] [address] [place] Eosinophils (Bld) [#/Vol] 0.34 10*3/uL Normal <0.46 [facility] Comment on above: Order Comment: Speci men Type: BLOOD SPECIMEN Ordering Facility: [facility] Address: [address] [place] [address] Performed By: #### 5 7021-8 #### [facility] CLIA [id number] [address] [place] [address] [place] Eosinophils/100 WBC (Bld) 4.6 % Normal [facility] Comment on above: Order Comment: Speci men Type: BLOOD SPECIMEN Ordering Facility: [facility] Address: [address] [place] [address] Performed By: #### 5 7021-8 #### [facility] CLIA [id number] [address] [place] [address] [place] Erythrocyte distribution width (RBC) [Ratio] 11.9 % Normal 11.5-15.0 [facility] Comment on above: Order Comment: Speci men Type: BLOOD SPECIMEN Ordering Facility: [facility] Address: [address] [place] [address] Performed By: #### 5 7021-8 #### [facility] IA [id number] [place] [address] [place] Hematocrit (Bld) [Volume fraction] 36.9 % Normal 36.0-46.0 [facility] Comment on above: Order Comment: Speci men Type: BLOOD SPECIMEN Ordering Facility: [facility] Address: [address] [place] [address] Performed By: #### 5 7021-8 #### [facility] IA [id number] [place] [address] [place] Hemoglobin (Bld) [Mass/Vol] 12.3 g/dL Normal 11.5-15.5 [facility] Comment on above: Order Comment: Speci men Type: BLOOD SPECIMEN Ordering Facility: [facility] Address: [address] [place] [address] Performed By: #### 5 7021-8 #### [facility] CLIA [id number] [address] [place] [address] [place] Immature granulocytes (Bld) [#/Vol] 10*3/uL Normal <0.10 [facility] Comment on above: Order Comment: Speci men Type: BLOOD SPECIMEN Ordering Facility: [facility] Address: [address] [place] [address] Performed By: #### 5 7021-8 #### [facility] IA [id number] [address] [place], [place] [address] [place] [address] [place] Immature granulocytes/100 WBC (Bld) 0.1 % Normal [facility] Comment on above: Order Comment: Speci men Type: BLOOD SPECIMEN Ordering Facility: [facility] Address: [address] [place] [address] Performed By: #### 5 7021-8 #### [facility] IA [id number] [place] [address] [place] Lymphocytes (Bld) [#/Vol] 3.86 10*3/uL Normal 1.00-4.00 [facility] Comment on above: Order Comment: Speci men Type: BLOOD SPECIMEN Ordering Facility: [facility] Address: [address] [place] [address] Performed By: #### 5 7021-8 #### [facility] IA [id number] [address] [place] [address] [place] Lymphocytes/100 WBC (Bld) 51.7 % Normal [facility] Comment on above: Order Comment: Speci men Type: BLOOD SPECIMEN Ordering Facility: [facility] Address: [address] [place] [address] Performed By: #### 5 7021-8 #### [facility] IA [id number] [place], [place] [address] [place] MCH (RBC) [Entitic mass] 32.5 pg Normal 26.0-34.0 [facility] Comment on above: Order Comment: Speci men Type: BLOOD SPECIMEN Ordering Facility: [facility] Address: [address] [place] [address] Performed By: #### 5 7021-8 #### [facility] IA [id number] [place], [place] [address] [place] MCHC (RBC) [Mass/Vol] 33.3 g/dL Normal 30.5-36.0 [facility] Comment on above: Order Comment: Speci men Type: BLOOD SPECIMEN Ordering Facility: [facility] Address: [address] [place] [address] Performed By: #### 5 7021-8 #### [facility] IA [id number] [address] [place] [address] [place] MCV (RBC) [Entitic vol] 97.4 fL Normal 80.0-100.0 [facility] Comment on above: Order Comment: Speci men Type: BLOOD SPECIMEN Ordering Facility: [facility] Address: [address] [place] [address] Performed By: #### 5 7021-8 #### [facility] IA [id number] [address] [place] [address] [place] Monocytes (Bld) [#/Vol] 0.70 10*3/uL Normal <0.87 [facility] Comment on above: Order Comment: Speci men Type: BLOOD SPECIMEN Ordering Facility: [facility] Address: [address] [place] [address] Performed By: #### 5 7021-8 #### [facility] IA [id number] [address] [place] [address] [place] Monocytes/100 WBC (Bld) 9.4 % Normal [facility] Comment on above: Order Comment: Speci men Type: BLOOD SPECIMEN Ordering Facility: [facility] Address: [address] [place] [address] Performed By: #### 5 7021-8 #### [facility] IA [id number] [address] [place] [address] [place] Neutrophils (Bld) [#/Vol] 2.47 10*3/uL Normal 1.45-7.50 [facility] Comment on above: Order Comment: Speci men Type: BLOOD SPECIMEN Ordering Facility: [facility] Address: [address] [place] [address] Performed By: #### 5 7021-8 #### [facility] IA [id number] [address] [place] [address] [place] Neutrophils/100 WBC (Bld) 33.0 % Normal [facility] Comment on above: Order Comment: Speci men Type: BLOOD SPECIMEN Ordering Facility: [facility] Address: [address] [place] [address] Performed By: #### 5 7021-8 #### [facility] IA [id number] [address] [place] [address] [place] Nucleated RBC (Bld) [#/Vol] 10*3/uL Normal <0.01 [facility] Comment on above: Order Comment: Speci men Type: BLOOD SPECIMEN Ordering Facility: [facility] Address: [address] [place] [address] Performed By: #### 5 7021-8 #### [facility] IA [id number] [address] [place] [address] [place] Nucleated RBC/100 WBC (Bld) [Ratio] 0.0 /100 WBC Normal [facility] Comment on above: Order Comment: Speci men Type: BLOOD SPECIMEN Ordering Facility: [facility] Address: [address] [place] [address] Performed By: #### 5 7021-8 #### [facility] IA [id number] [address] [place] [address] [place] Platelet mean volume (Bld) [Entitic vol] 8.7 fL Low 9.0-12.7 [facility] Comment on above: Order Comment: Speci men Type: BLOOD SPECIMEN Ordering Facility: [facility] Address: [address] [place] [address] Performed By: #### 5 7021-8 #### [facility] IA [id number] [address] [place] [address] [place] Platelets (Bld) [#/Vol] 209 10*3/uL Normal 150-400 [facility] Comment on above: Order Comment: Speci men Type: BLOOD SPECIMEN Ordering Facility: [facility] Address: [address] [place] [address] Performed By: #### 5 7021-8 #### [facility] CLIA [id number] [address] [place] [address] [place] RBC (Bld) [#/Vol] 3.79 10*6/uL Low 3.90-5.20 [facility] Comment on above: Order Comment: Speci men Type: BLOOD SPECIMEN Ordering Facility: [facility] Address: [address] [place] [address] Performed By: #### 5 7021-8 #### [facility] CLIA [id number] [address] [place] [address] [place] WBC (Bld) [#/Vol] 7.47 10*3/uL Normal 3.70-11.00 [facility] Comment on above: Order Comment: Speci men Type: BLOOD SPECIMEN Ordering Facility: [facility] Address: [address] [place] [address] Performed By: #### 5 7021-8 #### [facility] CLIA [id number] [address] [place] [id number] [place] CK SerPl-cCncon 12-18-2024 CK [Catalytic activity/Vol] 37 U/L Low 42-196 [facility] Comment on above: Order Comment: Speci men Type: BLOOD SPECIMEN Ordering Facility: [facility] Address: [address] [place] [address] Performed By: #### 2 157-6, 82613-1, 3040-3, 14652-5 #### [facility] CLIA [id number] [place] CT BRAIN WO IVCONon 12-19-[address] BRAIN WO IVCON * * *Final Report* * * DATE OF EXAM: Dec 18 2024 10:24PM [facility] 0504 - CT BRAIN WO IVCON [...] Other: No depressed skull fracture is seen. Office Rep (topogram) images: Degenerative spine changes noted. Non-diagnostic otherwise. IMPRESSION: Brain CT shows no evidence of an acute intracranial abnormality. Chronic intracranial changes and other details above. Clinical Psychology Teacher: [facility] Transcribe Date/Time: Dec 18 2024 11:53P Dictated by : LOVE VALENCIA MD This examination was interpreted and the report reviewed and electronically signed by: LOVE VALENCIA MD on Dec 19 2024 12:12AM EST [id number] N Normal [facility] CTA CHEST (NON GATED) W IVCO N PEon 12-18-2024 CTA CHEST (NON GATED) W IVCON PE * * *Final Report* * * DATE OF EXAM: Dec 18 2024 10:27PM [facility] 0564 - CTA CHEST (NON GATED) [...] process. 3. Calcified granulomas and lymph nodes. Clinical Psychology Teacher: [facility] Transcribe Date/Time: Dec 19 2024 12:32A Dictated by : JASON HINKLE MD This examination was interpreted and the report reviewed and electronically signed by: JASON HINKLE MD on Dec 19 2024 12:45AM EST [id number] N Normal [facility] Comprehensive metabolic 2000 panelon 12-18-2024 Albumin [Mass/Vol] 3.7 g/dL Low 3.9-4.9 [facility] Comment on above: Order Comment: Speci men Type: BLOOD SPECIMEN Ordering Facility: [facility] Address: [address] [place], [place] [address] Performed By: #### 2 157-6, 19598-2, 3040-3, 66023-0 #### [facility] CLIA [id number] [address] [place] [address] [place] ALP [Catalytic activity/Vol] 55 U/L Normal 34-123 [facility] Comment on above: Order Comment: Speci men Type: BLOOD SPECIMEN Ordering Facility: [facility] Address: [address] [place] [address] Performed By: #### 2 157-6, 12404-0, 3040-3, 66290-7 #### [facility] CLIA [id number] [address] [place] [address] [place] ALT [Catalytic activity/Vol] 9 U/L Normal 7-38 [facility] Comment on above: Order Comment: Speci men Type: BLOOD SPECIMEN Ordering Facility: [facility] Address: [address] [place], [place] [address] Performed By: #### 2 157-6, 25014-7, 3040-3, 26775-7 #### [facility] CLIA [id number] [address] [place] [address] [place] Anion gap [Moles/Vol] 15 mmol/L Normal 8-15 [facility] Comment on above: Order Comment: Speci men Type: BLOOD SPECIMEN Ordering Facility: [facility] Address: [address] [place], [place] [address] Performed By: #### 2 157-6, 14959-3, 3040-3, 94111-1 #### [facility] CLIA [id number] [address] [place] [address] [place] AST [Catalytic activity/Vol] 16 U/L Normal 13-35 [facility] Comment on above: Order Comment: Speci men Type: BLOOD SPECIMEN Ordering Facility: [facility] Address: [address] [place], [place] [address] Performed By: #### 2 157-6, 93340-6, 3040-3, 61075-9 #### [facility] CLIA [id number] [address] [place] [address] [place] Bilirubin [Mass/Vol] 0.2 mg/dL Normal 0.2-1.3 [facility] Comment on above: Order Comment: Speci men Type: BLOOD SPECIMEN Ordering Facility: [facility] Address: [address] [place] [address] Performed By: #### 2 157-6, 30119-1, 3040-3, 28216-2 #### [facility] CLIA [id number] [address] [place] [address] [place] Calcium [Mass/Vol] 9.4 mg/dL Normal 8.5-10.2 [facility] Comment on above: Order Comment: Speci men Type: BLOOD SPECIMEN Ordering Facility: [facility] Address: [address] [place] [address] Performed By: #### 2 157-6, 31884-2, 3040-3, 45903-7 #### [facility] CLIA [id number] [address] [place] [address] [place] Chloride [Moles/Vol] 99 mmol/L Normal 98-107 [facility] Comment on above: Order Comment: Speci men Type: BLOOD SPECIMEN Ordering Facility: [facility] Address: [address] [place] [address] Performed By: #### 2 157-6, 95089-1, 3040-3, 63656-4 #### [facility] CLIA [id number] [address] [place] [address] [place] CO2 [Moles/Vol] 24 mmol/L Normal 22-30 [facility] Comment on above: Order Comment: Speci men Type: BLOOD SPECIMEN Ordering Facility: [facility] Address: [address] [place] [address] Performed By: #### 2 157-6, 57415-9, 3040-3, 60128-1 #### [facility] CLIA [id number] [address] [place] [address] [place] Creatinine [Mass/Vol] 1.24 mg/dL High 0.58-0.96 [facility] Comment on above: Order Comment: Skyler trammell Type: BLOOD SPECIMEN Ordering Facility: [facility] Address: [address] [place], [place] [address] Performed By: #### 2 157-6, 45205-1, 3040-3, 25747-5 #### [facility] CLIA [id number] [address] [place] [address] [place] eGFRcr SerPlBld CKD-EPI 2020 45 mL/min/1.73m??? Low >=60 [facility] Comment on above: Order Comment: [facility] Type: BLOOD SPECIMEN Ordering Facility: [facility] Address: [address] [place] [address] Result Comment: Vicky mated Glomerular Filtration Rate [...] actual GFR. Performed By: #### 2 157-6, 70839-5, 3040-3, 02905-6 #### [facility] CLIA [id number] [address] [place] [address] [place] Glucose [Mass/Vol] 153 mg/dL High 74-99 [facility] Comment on above: Order Comment: Skyler trammell Type: BLOOD SPECIMEN Ordering Facility: [facility] Address: [address] [place] [address] Result Comment: The [place] [employer] (ADA) provides guidance for cutoff [...] Standards of Medical Care in Diabetes 2016, [place] [employer]. Diabetes Care. 2016.39(Suppl 1). Performed By: #### 2 157-6, 02163-6, 3040-3, 71632-0 #### [facility] CLIA [id number] [address] [place] [address] [place] Potassium [Moles/Vol] 3.1 mmol/L Low 3.7-5.1 [facility] Comment on above: Order Comment: Speci valeri Type: BLOOD SPECIMEN Ordering Facility: [facility] Address: [address] [place], [place] [address] Performed By: #### 2 157-6, 15630-8, 3040-3, 42693-2 #### [facility] CLIA [id number] [address] [place] [address] [place] Protein [Mass/Vol] 6.4 g/dL Normal 6.3-8.0 [facility] Comment on above: Order Comment: Skyler trammell Type: BLOOD SPECIMEN Ordering Facility: [facility] Address: [address] [place], [place] [address] Performed By: #### 2 157-6, 66702-8, 3040-3, 83756-7 #### [facility] CLIA [id number] [address] [place] [address] [place] Sodium [Moles/Vol] 138 mmol/L Normal 136-144 [facility] Comment on above: Order Comment: Speci men Type: BLOOD SPECIMEN Ordering Facility: [facility] Address: [address] [place] [address] Performed By: #### 2 157-6, 58578-1, 3040-3, 15598-7 #### [facility] CLIA [id number] [address] [place] [address] [place] Urea nitrogen [Mass/Vol] 22 mg/dL High 7-21 [facility] Comment on above: Order Comment: Speci men Type: BLOOD SPECIMEN Ordering Facility: [facility] Address: [address] [place] [address] Performed By: #### 2 157-6, 50514-2, 3040-3, 73758-1 #### [facility] CLIA [id number] [facility] [place] [address] [facility] [place] ED NOTEon 12-18-2024 ED NOTE HNO ID: [id number] Author: ISHMAEL GARCIA, RICARDO Service: ? Author Type: Registered Nurse Type: ED Notes Filed: 12/18/2024 20:17 Note Text: Bed: ED-12 Expected date: Expected time: Means of arrival: Comments: Normal [facility] ED PROV NOTEon 12-18-2024 ED PROV NOTE HNO ID: [id number] Author: GOVIND SNOW DO Service: ? Author [...] and clinically improved and feeling better Govind Snow, DO Disposition The patient was discharged. Yes Escalation of care including transfer to ED considered. Reason(s) for deciding against admission/observation : Offered and after shared decision making we [...] No Sexual activity: Never GOVIND SNOW 12/19/24 010 [facility] EKGon 12-18-2024 Electrocardiogram Ventricular Rate : 5 3 BPM Atrial Rate : 53 BPM P-R Interval : 255 ms QRS Duration : 125 ms Q-T Interval : 458 ms QTC Calculation(Bazett) : 430 ms Calculated P Wayne : 231 degrees Calculated R Wayne : -23 degrees Calculated T Wayne : 117 degrees Sinus or ectopic atrial rhythm Prolonged TN intervalAbnormal ECG Confirmed by GOVIND SNOW DO ([id number]) on 12/19/2024 1:04:30 AM NAME : BETTIE BURNS PID : [id number] : 1945 Gender : Female Race : ORD : Procedure Date : Dec 18 2024 20:27:32 Edit Date : Dec 19 2024 01:04:35 Diagnosis: Sinus or ectopic atrial rhythm Prolonged TN intervalAbnormal ECG Confirmed by GOVIND SNOW DO ([id number]) on 12/19/2024 1:04:30 AM Test Reason : Location : 302 : ED ED- Overread By : GOVIND SNOW DO Edited By : GOVIND SNOW DO Referred By : , Acquired by : , [facility] Eosinophils/100 WBC Auto (Bl d)Ordered By: Govind Snow on 12-18-2024 Eosinophils/100 WBC (Bld) 4.6 % [facility] Erythrocyte distribution wid th Auto (RBC) [Ratio]Ordered By: Govind Snow on 12-18-2024 Erythrocyte distribution width (RBC) [Ratio] 11.9 % 11.5-15.0 [facility] Ethanol SerPl-mCncon 025 Ethanol [Mass/Vol] 105 mg/dL High <11 [facility] Comment on above: Order Comment: Skyler trammell Type: BLOOD SPECIMEN Ordering Facility: [facility] Address: [address] [place] [address] Result Comment: Valu es > 80 mg/dL may indicate intoxication Performed By: #### 5 643-2 #### [facility] CLIA [id number] [address] [place] [address] [place] Glomerular filtration rate [ Volume Rate/Area] in Serum, Plasma or Blood by CreatinineOrdered By: Govind Snow on 12-18-2024 Glomerular filtration rate [Volume Rate/Area] in Serum, Plasma or Blood by Creatinine 45 mL/min/1.73m??? Low >=60 [facility] Comment on above: Estimated Glomerular Filtration Rate (eGFR) is calculated using the 2020 CKD-EPI creatinine equation. This equation utilizes serum creatinine, sex, and age as parameters. The creatinine assay has traceable calibration to isotope dilution-mass spectrometry. Refer to KDIGO guidelines for clinical interpretation. In patients with unstable renal function, e.g. those with acute kidney injury, the eGFR may not accurately reflect actual GFR. HIGH SENSITIVITY TROPONIN T (INITIAL)on 12-18-2024 Troponin T.cardiac High sensitivity method [Mass/Vol] 14 ng/L High <12 [facility] Comment on above: Order Comment: Skyler trammell Type: BLOOD SPECIMEN Ordering Facility: [facility] Address: [address] [place] [address] Performed By: #### L [id number] #### [facility] CLIA [id number] [address] [place] [address] [place] HIGH SENSITIVITY TROPONIN T (SECOND)on 12-18-2024 Troponin T.cardiac High sensitivity method [Mass/Vol] 12 ng/L High <12 [facility] Comment on above: Order Comment: Skyler trammell Type: URINE SPECIMEN Ordering Facility: [facility] Address: [address] [place] [address] Performed By: #### 2 4356-8 #### [facility] CLIA [id number] [address] [place] [address] [place] #### 630-4 #### [facility] CLIA [id number] [address] [place] [id number] [place] [address] [place] Hematocrit Auto (Bld) [Volum e fraction]Ordered By: Govind Snow on 12-18-2024 Hematocrit (Bld) [Volume fraction] 36.9 % 36.0-46.0 [facility] Hemoglobin [Mass/volume] in BloodOrdered By: Govind Snow on 12-18-2024 Hemoglobin (Bld) [Mass/Vol] 12.3 g/dL 11.5-15.5 [facility] INR in Platelet poor plasma by Coagulation assayOrdered By: Govind Snow on 12-18-2024 INR Coag (PPP) [Relative time] 1.1 {INR} 0.9-1.3 [facility] Comment on above: Vitamin K Antagonist (VKA) Therapeutic Range: INR 2 to 3 (Target INR of 2.5)Note: For patients treated with VKA drugs, such as warfarin, the [place] [employer] 2012 Guideline recommends a therapeutic INR range of 2 to 3 (target INR of 2.5). This recommendation includes high-risk patients with antiphospholipid syndrome with previous arterial or venous thromboembolism, current-generation mechanical or bioprosthetic aortic heart valve replacement.Note: Patients with mechanical aortic valve replacement and additional risk factors for thromboembolic events (atrial fibrillation, previous thromboembolism, LV dysfunction, hypercoagulable conditions) or an older generation mechanical AVR (i.e., ball in-Cage) or any mechanical MVR should have a INR therapeutic range of 2.5 to 3.5 (target INR of 3).Indy GH, et al. Chest 2012, 141:7S-47SNishimura RA, et al. JACC 2017, 70: 252-289 Laboratory - Chemistry and C hemistry - challengeOrdered By: Govind Snow on 12-18-2024 Albumin [Mass/Vol] 3.7 g/dL Low 3.9-4.9 [facility] ALP [Catalytic activity/Vol] 55 U/L 34-123 [facility] ALT [Catalytic activity/Vol] 9 U/L 7-38 [facility] AST [Catalytic activity/Vol] 16 U/L 13-35 [facility] Bilirubin [Mass/Vol] 0.2 mg/dL 0.2-1.3 [facility] Calcium [Mass/Vol] 9.4 mg/dL 8.5-10.2 [facility] Chloride [Moles/Vol] 99 mmol/L 98-107 [facility] CK [Catalytic activity/Vol] 37 U/L Low 42-196 [facility] CO2 [Moles/Vol] 24 mmol/L 22-30 [facility] Creatinine [Mass/Vol] 1.24 mg/dL High 0.58-0.[address] [facility] Glucose [Mass/Vol] 153 mg/dL High 74-99 [facility] Comment on above: The [place] Diabete s Association (ADA) provides guidance for cutoff values for fasting glucose and random glucose. The ADA defines fasting as no caloric intake for at least 8 hours. Fasting plasma glucose results between 100 to 125 mg/dL indicate increased risk for diabetes (prediabetes).Fasting plasma glucose results greater than or equal to 126 mg/dL meet the criteria for diagnosis of diabetes. In the absence of unequivocal hyperglycemia, results should be confirmed by repeat testing. In a patient with classic symptoms of hyperglycemia or hyperglycemic crisis, random plasma glucose results greater than or equal to 200 mg/dL meet the criteria for diagnosis of diabetes.Reference: Standards of Medical Care in Diabetes 2016, [place] [employer] Association. Diabetes Care. 2016.39(Suppl 1). Lipase [Catalytic activity/Vol] 24 U/L 16-61 [facility] Magnesium [Mass/Vol] 2.0 mg/dL 1.7-2.3 [facility] Potassium [Moles/Vol] 3.1 mmol/L Low 3.7-5.[address] [facility] Sodium [Moles/Vol] 138 mmol/L 136-144 [facility] Urea nitrogen [Mass/Vol] 22 mg/dL High 7-21 [facility] Laboratory - Hematology and Cell countsOrdered By: Govind Snow on 12-18-2024 Eosinophils (Bld) [#/Vol] 0.34 10*3/uL <0.46 [facility] Immature granulocytes/100 WBC (Bld) 0.1 % [facility] Leukocytes [#/volume] correc mary for nucleated erythrocytes in Blood by Automated counOrdered By: Govind Snow on 12-18-2024 WBC corrected for nucl RBC Auto (Bld) [#/Vol] 7.47 k/uL 3.70-11.00 [facility] Lipase SerPl-cCncon 12-19-19 25 Lipase [Catalytic activity/Vol] 24 U/L Normal 16-61 [facility] Comment on above: Order Comment: Speci men Type: BLOOD SPECIMEN Ordering Facility: [facility] Address: [address] [place] [address] Performed By: #### 2 157-6, 47064-4, 3040-3, 30478-4 #### [facility] CLIA [id number] [address] [place] [address] [facility] Lymphocytes Auto (Bld) [#/Vo l]Ordered By: Govind Snwo on 12-18-2024 Lymphocytes (Bld) [#/Vol] 3.86 10*3/uL 1.00-4.00 [facility] Lymphocytes/100 WBC Auto (Bl d)Ordered By: Govind Snow on 12-18-2024 Lymphocytes/100 WBC (Bld) 51.7 % [facility] MCH Auto (RBC) [Entitic mass ]Ordered By: Govind Snow on 12-18-2024 MCH (RBC) [Entitic mass] 32.5 pg 26.0-34.0 [facility] MCHC Auto (RBC) [Mass/Vol]Or dered By: Govind Snow on 12-18-2024 MCHC (RBC) [Mass/Vol] 33.3 g/dL 30.5-36.[address] [facility] MCV Auto (RBC) [Entitic vol] Ordered By: Govind Snow on 12-18-2024 MCV (RBC) [Entitic vol] 97.4 fL 80.0-100.0 F [facility] Magnesium SerPl-mCncon 12-18 Magnesium [Mass/Vol] 2.0 mg/dL Normal 1.7-2.3 [facility] Comment on above: Order Comment: Speci men Type: BLOOD SPECIMEN Ordering Facility: [facility] Address: [address] [place] [address] Performed By: #### 2 157-6, 48209-5, 3040-3, 08365-3 #### [facility] CLIA [id number] [address] [place] [address] [place] Monocytes Auto (Bld) [#/Vol] Ordered By: Govind Snow on 12-18-2024 Monocytes (Bld) [#/Vol] 0.70 10*3/uL <0.87 [facility] Monocytes/100 WBC Auto (Bld) Ordered By: Govind Snow on 12-18-2024 Monocytes/100 WBC (Bld) 9.4 % [facility] Natriuretic peptide.B prohormone N-Terminal [Mass/Vol] 507 pg/mL High <450 [facility] Comment on above: Order Comment: Speci men Type: BLOOD SPECIMEN Ordering Facility: [facility] Address: [address] [place] [address] Performed By: #### 3 3762-6 #### [facility] IA [id number] [address] [place], [place] [id number] [place] [address] [place] Natriuretic peptide.B prohor christy N-Terminal [Mass/volume] in Serum or PlasmaOrdered By: Govind Snow on 12-18-2024 Natriuretic peptide.B prohormone N-Terminal [Mass/Vol] 507 pg/mL High <450 [facility] Neutrophils Auto (Bld) [#/Vo l]Ordered By: Govind Snow on 12-18-2024 Neutrophils (Bld) [#/Vol] 2.47 10*3/uL 1.45-7.50 [facility] Neutrophils/100 WBC Auto (Bl d)Ordered By: Govind Snow on 12-18-2024 Neutrophils/100 WBC (Bld) 33.0 % [facility] No Panel InformationOrdered By: Govind Snow on 12-18-2024 Troponin T Hi Sens Cardiac Interven 12 ng/L High <12 [facility] Ethyl Alcohol Level 105 mg/dL High <11 [facility] Comment on above: Values > 80 mg/dL ma y indicate intoxication Immature Granulocyte # (Auto) <0.03 k/uL <0.10 [facility] Nucleated RBC Auto (Bld) [#/ Vol]Ordered By: Govind Snow on 12-18-2024 Nucleated RBC (Bld) [#/Vol] 10*3/uL <0.01 [facility] Nucleated erythrocytes [Pres ence] in Blood by Automated countOrdered By: Govind Snow on 12-18-2024 Nucleated RBC Auto Ql (Bld) 0.0 /100{WBC} [facility] PT panel Coag (PPP)on 2024 INR Coag (PPP) [Relative time] 1.1 {INR} Normal 0.9-1.3 [facility] Comment on above: Order Comment: Speci men Type: BLOOD SPECIMENOrdering Facility: [facility] Address: [address] [place] [address] Result Comment: Leta min K Antagonist (VKA) Therapeutic Range: INR 2 to 3 (Target INR of 2.5) Note: For patients treated with VKA drugs, such as warfarin, the [place] [employer] 2012 Guideline recommends [...] [phone] Performed By: #### 2 4356-8 #### [facility] CLIA [id number] [address] [facility] [place], [place] [id number] [place] [address] [place] #### 630-4 #### [facility] CLIA [id number] [address] [place] [address] PT Coag (PPP) [Time] 11.7 s Normal 9.7-13.0 [facility] Comment on above: Order Comment: Speci men Type: BLOOD SPECIMENOrdering Facility: [facility] Address: [address] [place] [address] Performed By: #### 2 4356-8 #### [facility] CLIA [id number] [address] [address] [place] #### 630-4 #### [facility] CLIA [id number] [address] [place] [address] [place] Platelet mean volume Auto (B ld) [Entitic vol]Ordered By: Govind Snow on 12-18-2024 Platelet mean volume (Bld) [Entitic vol] 8.7 fL Low 9.0-12.7 [facility] Platelets Auto (Bld) [#/Vol] Ordered By: Govind Snow on 12-18-2024 Platelets (Bld) [#/Vol] 209 10*3/uL 150-400 [facility] Protein [Mass/volume] in Ser um or PlasmaOrdered By: Govind Snow on 12-18-2024 Protein [Mass/Vol] 6.4 g/dL 6.3-8.0 [facility] Prothrombin time (PT)Ordered By: Govind Snow on 12-18-2024 PT Coag (PPP) [Time] 11.7 s 9.7-13.0 [facility] RBC Auto (Bld) [#/Vol]Ordere d By: Govind Snow on 12-18-2024 RBC (Bld) [#/Vol] 3.79 10*6/uL Low 3.90-5.20 [facility] Serum or plasma anion gap de terminationOrdered By: Govind Sonw on 12-18-2024 Anion gap [Moles/Vol] 15 mmol/L 12-[address] [facility] XR CHEST 1V FRONTAL PORTon 0 12-18-2024 [...] described above with no definite acute disease. Clinical Psychology Teacher: SHIVANI Transcribe Date/Time: Dec 18 2024 8:55P Dictated by : KATRIN PHILIP MD This examination was interpreted and the report reviewed and electronically signed by: KATRIN PHILIP MD on Dec 18 2024 8:56PM EST [id number] Normal [facility] Laboratory - Chemistry and C hemistry - challengeOrdered By: Elliot Starks on 11-29-2024 Bilirubin Ql (U) Negative [facility] Glucose (U) [Mass/Vol] Negative [facility] Ketones Ql (U) Negative [facility] pH (U) 5 [pH] [facility] Specific gravity (U) [Rel density] 1.015 [facility] Urobilinogen (U) [Mass/Vol] 0.2 mg/dL [facility] Laboratory - Specimen inform ationOrdered By: Elliot Starks on 11-29-2024 Appearance (U) clear [facility] Color (U) yellow [facility] Laboratory - UrinalysisOrder ed By: Elliot Starks on 11-29-2024 Leukocyte esterase Test strip Ql (U) Negative [facility] Nitrite Ql (U) Positive [facility] Protein Ql (U) Negative [facility] No Panel InformationOrdered By: Elliot Starks on 11-29-2024 Urine Occult Blood ++ [facility] CBC (NO DIFF)on 11-09-2024 Erythrocyte distribution width (RBC) [Ratio] 12.8 % Normal 11.5-15 [facility] Comment on above: Performed By: #### C BC #### [facility] ([facility]) [address] [place] [address] VIR Hematocrit (Bld) [Volume fraction] 40.0 % Normal 35-47 [facility] Comment on above: Performed By: #### C BC #### [facility] ([facility]) [address] [place] [address] VIR Hemoglobin (Bld) [Mass/Vol] 13.6 g/dL Normal 11.7-15.5 [facility] Comment on above: Performed By: #### C BC #### [facility] ([facility]) [address] [place] [address] VIR MCH (RBC) [Entitic mass] 32.7 pg Normal 27-34 [facility] Comment on above: Performed By: #### C BC #### [facility] ([facility]) [address] [place] [address] VIR MCHC (RBC) [Mass/Vol] 34.1 g/dL Normal 32-36 [facility] Comment on above: Performed By: #### C BC #### [facility] ([facility]) [address] [place] [address] VIR MCV (RBC) [Entitic vol] 96 fL Normal 80-100 [facility] Comment on above: Performed By: #### C BC #### [facility] ([facility]) [address] [place] [address] VIR Platelet mean volume (Bld) [Entitic vol] 7.0 fL Normal 7-12 [facility] Comment on above: Performed By: #### C BC #### [facility] ([facility]) [address] [place] [address] VIR Platelets (Bld) [#/Vol] 206 10*3/uL Normal 150-450 [facility] Comment on above: Performed By: #### C BC #### [facility] ([facility]) [address] [place] [address] VIR RBC COUNT 4.16 X10E12/L Normal 3.8-5.2 [facility] Comment on above: Performed By: #### C BC #### [facility] ([facility]) [address] [place] [address] VIR WBC (Bld) [#/Vol] 5.1 10*3/uL Normal 4-11 [facility] Comment on above: Performed By: #### C BC #### [facility] ([facility]) [address] [place] [address] VIR COMPREHENSIVE METABOLIC PANE Roland 11-08-2024 Albumin [Mass/Vol] 4.2 g/dL Normal 3.2-5.3 [facility] Comment on above: Performed By: #### C MP #### [facility] ([facility]) [address] [place] [address] VIR ALP [Catalytic activity/Vol] 48 U/L Normal 39-130 [facility] Comment on above: Performed By: #### C MP #### [facility] ([facility]) [address] [place] [address] VIR ALT [Catalytic activity/Vol] 10 U/L Normal <=31 [facility] Comment on above: Performed By: #### C MP #### [facility] ([facility]) [address] [place] [address] VIR Anion gap [Moles/Vol] 8 mmol/L Normal 5-15 [facility] Comment on above: Performed By: #### C MP #### [facility] ([facility]) [address] [place] [address] VIR AST [Catalytic activity/Vol] 17 U/L Normal <=41 [facility] Comment on above: Performed By: #### C MP #### [facility] ([facility]) [address] [place] [address] VIR Bilirubin [Mass/Vol] 0.5 mg/dL Normal 0.3-1.2 [facility] Comment on above: Performed By: #### C MP #### [facility] ([facility]) [address] [place] [address] VIR Calcium [Mass/Vol] 10.0 mg/dL Normal 8.5-10.5 [facility] Comment on above: Performed By: #### C MP #### [facility] ([facility]) [address] [place] [address] VIR Chloride [Moles/Vol] 101 mmol/L Normal 98-109 [facility] Comment on above: Performed By: #### C MP #### [facility] ([facility]) [address] [place] [address] VIR CO2 [Moles/Vol] 32 mmol/L Normal 22-32 [facility] Comment on above: Performed By: #### C MP #### [facility] ([facility]) [address] [place] [address] VIR Creatinine [Mass/Vol] 1.06 mg/dL High 0.40-1.00 [facility] Comment on above: Result Comment: METH OD TRACEABLE TO IDMS STANDARD Performed By: #### C MP #### [facility] ([facility]) [address] [place] [address] VIR GFR/1.73 sq M.predicted among non-blacks MDRD (S/P/Bld) [Vol rate/Area] 54 mL/min/{1.73_m2} Low >=60 [facility] Comment on above: Result Comment: Repo rted eGFR is based on the CKD-EPI 2020 equation that does not use a race coefficient. Performed By: #### C MP #### [facility] ([facility]) [address] [place] [address] VIR Glucose [Mass/Vol] 109 mg/dL High 65-99 [facility] Comment on above: Performed By: #### C MP #### [facility] ([facility]) [address] [place] [address] VIR Potassium [Moles/Vol] 3.9 mmol/L Normal 3.5-5.0 [facility] Comment on above: Performed By: #### C MP #### [facility] ([facility]) [address] [place] [address] VIR Protein [Mass/Vol] 7.2 g/dL Normal 6.0-8.0 [facility] Comment on above: Performed By: #### C MP #### [facility] ([facility]) [address] [place] [address] VIR Sodium [Moles/Vol] 141 mmol/L Normal 134-146 [facility] Comment on above: Performed By: #### C MP #### [facility] ([facility]) [address] [place] [address] VIR Urea nitrogen [Mass/Vol] 27 mg/dL Normal 5-27 [facility] Comment on above: Performed By: #### C MP #### [facility] ([facility]) [address] [place] [address] VIR MAGNESIUMon 11-08-2024 Magnesium [Mass/Vol] 1.9 mg/dL Normal 1.8-2.6 [facility] Comment on above: Performed By: #### M G #### [facility] ([facility]) [address] [place] [address] VIR POCT EKGOrdered By: Cora case on 11-08-2024 [facility] Ambulatory Visit Summaryon 0 10-26-2024 Ambulatory Visit [...] 40 mg Cap-DR) potassium chloride (Potassium Chloride (Ifr-Wrvj-Zox 10) 10 mEq oral tablet, extended release) [...] E Osman PA-C Where: [facility] [address] [id number]- Medications What How Much When Why Instructions [...] 1 Capsules Unchanged potassium chloride (Potassium Chloride (Jkw-Bbut-Uil 10) 10 mEq oral tablet, extended release) [...] signed up for this yet, please contact [employer] at [phone] to get signed up today. Language Information Language assistance services are available as needed. Normal [facility] Urology Office/Clinic Noteon 10-26-2024 Urology [...] off and repeat Botox is desired Ordered: 10295 Measure Post Void residual urine and/or bladder capacity by US- non-imaging Urnls Dip Stick Auto w/o Microscopy POC 43672 2. Frequent UTI (N39.0: Urinary tract infection, [...] -Cont symptom monitoring -High fluid intake, add lemon/[place] -Moderate animal protein, increase fruits and vegetables 4. 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 She has had a hematuria workup including a scope in the past at [facility]. Denies gross hematuria. CTU 07/18/24 - neg for filling defects, 3 mm right ureteral stone noted. Follow up CT scan confirmed passage. S/p cysto 09/19/24 - negative for b.t., lesions, stones or foreign bodies. Cystitis cystica. Moderate vaginal atrophy. UA today w/ moderate bloo (more content not included)... Normal [facility] Comment on above: Result Comment: Elec tronically Signed By: Jacqui MOTT, Maria E\.br\Date and Time Signed: 10/26/24 09:05 EDT Inpatient Patient Summaryon 09-19-2024 Inpatient Patient Summary Inpatient Patient Summary [place] [id number] Clinical Summary Person Information Name: BETTIE BURNS Age: 79 Years : 1945 Sex: Female PCP: ELLIOT STARKS MD Marital Status: Race: White Ethnicity: Non- or Language: Honduran Visit Id: Visit Reason: MIXED INCONTINENCE Speciality: Acuity: Enc Type: Outpatient Med Service: Surgery Arrival: 09/19/2024 07:39:26 Discharge: Dispo Type: Address: [address] [place] [phone] Provider Notes: Diagnosis: Mixed incontinence; Recurrent UTI; [...] Cap-DR) 1 Capsules. potassium chloride (Potassium Chloride (Eld-Yhem-Bad 10) 10 mEq oral tablet, extended release) [...] 1 month with PVR With: Address: When: Alfrdea Miller Patient Education Information: EU - Cystoscopy with Botox Injection Discharge Instructions (CUSTOM) [facility] Main OR Intraoperative Recor don 09-19-2024 Main OR Intraoperative Record Main OR Intraoperative Record IntraOp Document Type [facility] Summary Primary Physician: Alfreda Miller MD Finalized Date/Time: 09/19/24 08:27:50 Pt. Name: JEANNE BURNSWALLACE Browning/Sex: 1945 Female Med Rec #: [id number] Physician: Alfreda Miller MD Financial #: [id number] Pt. Type: O Room/Bed: / Admit/Disch: 09/19/24 07:39:26 - Institution: Case Times [facility]O Entry 1 Patient Times In Room 09/19/24 08:12:00 Out Room 09/19/24 08:24:00 Procedure Times Start 09/19/24 08:17:00 Stop 09/19/24 08:20:00 Anesthesia Times Last Modified By: Roxy King 09/19/24 08:27:24 General Comments: BOTOX 100 UNITS: EXP: AND LOT: [id number].Emelina MOREIRA Case Attendance [facility] Entry 1 Entry 2 Entry 3 Case Attendee Paul VILLEGAS, Roxy Herrera Laura C Role Performed Surgeon - Primary Director Of Philanthropy - Primary Scrub - Primary Time In 09/19/24 08:12:00 09/19/24 08:12:00 09/19/24 08:12:00 Time Out 09/19/24 08:24:00 09/19/24 08:24:00 09/19/24 08:24:00 Procedure CYSTOSCOPY LOCAL BOTOX CYSTOSCOPY LOCAL BOTOX CYSTOSCOPY LOCAL BOTOX INJECTION(.) INJECTION(.) INJECTION(.) Comments Last Modified By: Rxoy King Kelsie E Burgderfer, Kelsie E 09/19/24 [...] Position Verified Availability Equipment, Medication Time Out Paul VILLEGAS, Alfreda Palacios, Verified (If Participants Roxy King, Applicable) [place] [...] Signed By: Roxy King 09/19/24 08:27 [facility] Main OR Preoperative Recordo n 09-19-2024 Main OR Preoperative Record Main OR Preoperative Record Holding Area Document Type [facility] Summary Primary Physician: Alfreda Miller MD Finalized Date/Time: 09/19/24 08:17:11 Pt. Name: BETTIE BURNS /Sex: 1945 Female Med Rec #: [id number] Physician: Alfreda Miller MD Financial #: [id number] Pt. Type: O Room/Bed: / Admit/Disch: 09/19/24 [...] Complaints of Pain: No Skin Integrity Intact, [place], Warm, & Dry Vitals - EU Blood [...] Unfinalizing Freetext Reason for Unfinalizing 09/19/24 08:16 [id number] Adding Additional Data [facility] Operative Reporton Operative Report Operative Report Patient: BETTIE BURNS Age: 79 years Sex: Female : 1945 Associated Diagnoses: None Author: Alfreda Miller MD Procedure Operative Information Details: Date/ Time: 09/19/2024 08:24:00. Pre-Op Dx: Mixed Urinary Incontinence - N39.46. Post-Op Dx: Same. Anesthesia Type: Local. Procedure: Local Cystoscopy with botox injection. Complications: None. Risks/Benefits/Inform ed Consent: Surgical risks, benefits, details of the [...] regarding vaginal atrophy and recurrent UTIs. [facility] Comment on above: Result Comment: Elec tronically Signed By: Alfreda Miller MD\.br\Date and Time Signed: 09/19/24 08:25 EDT Outpatient Surgery Discharge Instructionon 09-19-2024 Outpatient Surgery Discharge Instruction Outpatient Surgery Discharge Instruction [place] [id number] Patient Discharge Instructions PERSON INFORMATION Name: BETTIE [...] BURNS, have received the attached patient education materials/instruction s and have verbalized understanding: May we do a follow up call? Yes No I was present when discharge instructions were given Patient Signature Date Clinican/Nurse Signature Date You may receive a survey from Tj Coon asking you to rate your care experience. Your feedback is important and will help us understand what we do well and how we can improve the quality of care we provide to you, your loved ones and our community. It???s an honor to serve you. Thank you for choosing [facility] C Urineon 09-14-2024 Bacteria identified [...] 5,000 cfu/ml Mixed skin contaminants SUSCEPTIBILITY RESULTS LEGEND: S=Susceptible, N/R=Not Reported, Blank=Data not available, or drug not advisable or tested, I=Intermediate, ESBL=Extended spectrum beta-lactamase, R=Resistant, TFG=Thymidine-depende nt strain, ELLA=Beta-lactamase positive, AUBREY=mcg/m;(mg/L), S*=Predicted susceptible interp, [...] Locations R1: This test was performed at: [facility], [address] [place] [address], [phone]- , , [facility] Comment on above: Performed By: #### 2 [id number] #### [facility] [address] [place] [id number] C Urineon 06-24-2024 Bacteria identified Cx Nom [...] Locations R1: This test was performed at: [facility], [address] [place] [address], [phone]- , , [facility] Comment on above: Performed By: #### 2 [id number] #### [facility] [address] [place] [id number] Ambulatory Visit Summaryon 0 06-22-2024 Ambulatory Visit [...] 40 mg Cap-DR) potassium chloride (Potassium Chloride (Xla-Bxxs-Fqz 10) 10 mEq oral tablet, extended release) [...] 1 Capsules Unchanged potassium chloride (Potassium Chloride (Gfi-Ooid-Vbd 10) 10 mEq oral tablet, extended release) [...] for choosing us for your care. [facility] URINALYSISOrdered By: Tien Lyon on 06-22-2024 Bacteria Auto Ql (U) 1+ /HPF Invalid Interpretation Code Trace/HPF [facility] UA Auto SS Bilirubin Ql (U) Negative Normal Negativemg/ dL [facility] UA Auto SS Clarity (U) Clear (06/22/24 1:48 PM) Normal Clear [facility] UA Auto SS Color (U) Light-Yellow 1 (06/22/24 1:48 PM) Normal Yellow [facility] UA Auto SS Comment on above: Interpretive Data: M icroscopic readings are only performed on those samples that meet specific criteria set forth by [facility]. Epithelial cells.squamous Auto (Urine sed) [#/Area] 0-2 graded/HPF Invalid Interpretation Code [facility] UA Auto SS Glucose Ql (U) Negative Normal Negativemg/ dL [facility] UA Auto SS Hemoglobin Auto test strip (U) [Mass/Vol] 2+ *ABN* (06/22/24 1:48 PM) Invalid Interpretation Code Negative [facility] UA Auto SS Ketones Auto test strip Ql (U) Negative Normal Negativemg/ dL [facility] UA Auto SS Leukocyte esterase Auto test strip Ql (U) 250 Felipe/uL *ABN* (06/22/24 1:48 PM) Invalid Interpretation Code Negative [facility] UA Auto SS Mucus Auto Ql (U) Negative (06/22/24 1:48 PM) Normal Negative [facility] UA Auto SS Nitrite Auto test strip Ql (U) Negative Normal Negativemg/ dL [facility] UA Auto SS pH (U) 6.0 *NA* (06/22/24 1:48 PM) Invalid Interpretation Code 5.0 - 9.0 [facility] UA Auto SS Protein Ql (U) Negative Normal Negativemg/ dL [facility] UA Auto SS RBC Ql (U) 4-20 graded/HPF Invalid Interpretation Code 0-3graded/H PF [facility] UA Auto SS Specific gravity (U) [Rel density] 1.013 *NA* (06/22/24 1:48 PM) Invalid Interpretation Code 1.005 - 1.030 [facility] UA Auto SS Urobilinogen (U) [Mass/Vol] Negative Normal Negativemg/ dL [facility] UA Auto SS WBC Auto (Urine sed) [#/Area] 31-75 *ABN* (06/22/24 1:48 PM) Invalid Interpretation Code 0-5 [facility] UA Auto SS URINALYSISOrdered By: Catina Corona on 06-22-2024 UA Spec Desc Random Urine (06/22/24 1:48 PM) Normal [facility] UA Auto SS Urinalysis with Microon 06-04 Bacteria Auto Ql (U) 1+ /HPF Abnormal Trace [facility] Comment on above: Performed By: #### 4 [id number] #### [facility] [address] [place] [address] Bilirubin Ql (U) Negative Normal Negative [facility] Comment on above: Performed By: #### 4 [id number] #### [facility] [address] [place] [address] Clarity (U) Clear Normal Clear [facility] Comment on above: Performed By: #### 4 [id number] #### [facility] [address] [place] [address] Color (U) Light-Yellow Normal Yellow [facility] Comment on above: Result Comment: Micr oscopic readings are only performed on those samples that meet specific criteria set forth by [facility]. Performed By: #### 4 [id number] #### [facility] [address] [place] [address] Epithelial cells.squamous Auto (Urine sed) [#/Area] 0-2 Invalid Interpretation Code [facility] Comment on above: Performed By: #### 4 [id number] #### [facility] [address] [place] [address] Glucose Ql (U) Negative Normal Negative [facility] Comment on above: Performed By: #### 4 [id number] #### [facility] [address] [place] [address] Hemoglobin Auto test strip (U) [Mass/Vol] 2+ Abnormal Negative [facility] Comment on above: Performed By: #### 4 [id number] #### [facility] [address] [place] [address] Ketones Auto test strip Ql (U) Negative Normal Negative [facility] Comment on above: Performed By: #### 4 [id number] #### [facility] [address] [place] [address] Leukocyte esterase Auto test strip Ql (U) 250 Felipe/uL Abnormal Negative [facility] Comment on above: Performed By: #### 4 [id number] #### [facility] [address] [place] [address] Mucus Auto Ql (U) Negative Normal Negative [facility] Comment on above: Performed By: #### 4 [id number] #### [facility] [address] [place] [address] Nitrite Auto test strip Ql (U) Negative Normal Negative [facility] Comment on above: Performed By: #### 4 [id number] #### [facility] [address] [place] [address] pH (U) 6.0 [pH] Invalid Interpretation Code 5.0-9.0 [facility] Comment on above: Performed By: #### 4 [id number] #### [facility] [address] [place] [address] Protein Ql (U) Negative Normal Negative [facility] Comment on above: Performed By: #### 4 [id number] #### [facility] [address] [place] [address] RBC Ql (U) 4-20 Abnormal 0-3 [facility] Comment on above: Performed By: #### 4 [id number] #### [facility] [address] [place] [address] Specific gravity (U) [Rel density] 1.013 Invalid Interpretation Code 1.005-1.030 [facility] Comment on above: Performed By: #### 4 [id number] #### [facility] [address] [place] [address] Urobilinogen (U) [Mass/Vol] Negative Normal Negative [facility] Comment on above: Performed By: #### 4 [id number] #### [facility] [address] [place] [address] WBC Auto (Urine sed) [#/Area] 31-75 Abnormal 0-5 [facility] Comment on above: Performed By: #### 4 [id number] #### [facility] [address] [place] [address] Type of Urine collection method Random Urine Normal [facility] Comment on above: Performed By: #### 4 [id number] #### [facility] [address] [place] [address] Urology Office/Clinic Noteon 06-22-2024 Urology Office/Clinic Note [...] well nourished, in no acute distress. Assessment/Plan [facility] patient, last seen in-office 05/27/23 [...] pending completion of cystoscopy w/ KML Ordered: 77160 Measure Post Void residual urine and/or bladder [...] Urnls Dip Stick Auto w/o Microscopy POC 99213 2. Frequent UTI (N39.0: Urinary tract infection, [...] UTIs for (more content not included)... [facility] Comment on above: Result Comment: Elec tronically Signed By: Jacqui MOTT, Maria E\.br\Date and Time Signed: 06/22/24 15:08 EST Shane 09-17-2023 [place] Telephone (MARIA TERESA) BETTIE BURNS ([id number]) 1945 F Date Time Provider Department 09/17/23 MATT ADAMS During your visit today, we recorded the following information about you: Matt Adams, RICARDO 09/17/2023 10:20 AM Signed Pt called to request yearly Mammogram order I have pended order as previously completed Pt requests to fax to Nori Lema [phone] BRM/HM: please review and sign if agreeable RICARDO Lopez Natalie, RN 09/17/2023 1:31 PM Signed Order faxed to Torey Julio Pt aware. Matt Adasm RN Allergies As of Date: 09/17/2023 Noted Allergy Reaction BACLOFEN 03/19/2017 16 - Unknown CODEINE 03/19/2017 16 - Unknown HYDROCODONE-ACETAMINO PHEN 03/19/2017 16 - Unknown LEVOFLOXACIN 03/19/2017 16 - Unknown MORPHINE 12/03/2015 4 - Hives OXYCODONE 12/03/2015 4 - Hives PENICILLINS 12/03/2015 4 - Hives Date Reviewed: 03/16/2019 Reviewed by: Divine Self (Karissa), KARISSA - Fully Assessed Reason for Visit: Yearly Exam With Mammogram [188] Primary Visit Diagnosis:Encounter for screening mammogram for malignant neoplasm of breast [Z12.31] Order(s):[facility] SCREEN[facility] [[id number]] Order #: [id number] FUTURE Prescriptions as of 09/17/2023 - lisinopril (ZESTRIL, PRINIVIL) 20 mg tablet - XIIDRA 5 % dpet - cyclobenzaprine (FLEXERIL) 10 mg tablet Take 10 mg by mouth twice daily as needed. - temazepam (RESTORIL) 30 mg cap - losartan-hydrochlorot hiazide (HYZAAR) 100-25 mg per tablet - meperidine [...] Status:Closed by ANDREW CHOI on 09/17/23 Normal [facility] BASIC METABOLIC PANELon 03-0 Anion gap [Moles/Vol] 1 mmol/L MMOL/L [facility] Calcium [Mass/Vol] 8.7 mg/dL [facility] Chloride [Moles/Vol] 103 mmol/L [facility] Comment on above: Please note: Triglyc eride levels of 600mg/dL or higher may positively bias chloride results by approximately 2.1 mmol CO2 [Moles/Vol] 30 mmol/L [facility] Creatinine [Mass/Vol] 1.10 mg/dL [facility] GFR COMMENT Average GFR for 70+ years old = 75. [facility] Comment on above: Chronic Kidney disea se, GFR = <60. Kidney failure, GFR = <15. The GFR estimate is not adjusted for extreme body surface area or acute process, nor has it been validated for women or ethnic groups other than and . GFR/1.73 sq M.predicted among blacks MDRD (S/P/Bld) [Vol rate/Area] 62 mL/min/{1.73_m2} ml/min/1.73 sq.m [facility] GFR/1.73 sq M.predicted among non-blacks MDRD (S/P/Bld) [Vol rate/Area] 51 mL/min/{1.73_m2} ml/min/1.73 sq.m [facility] Glucose post fast [Mass/Vol] 141 mg/dL High [facility] Comment on above: NORMAL <100 mg/dL PREDIABETES 101-126 mg/dL DIABETES 126 mg/dL or higher Interpretation and review of laboratory results Abnormal [facility] Potassium [Moles/Vol] 3.8 mmol/L [facility] Sodium [Moles/Vol] 134 mmol/L Low [facility] Urea nitrogen [Mass/Vol] 30 mg/dL High [facility] CBC, EDIF, PLATELETon 2023 ABSOLUTE BASOPHIL COUNT 0.0 10*3/uL 0.0 - 0.2 10*3/uL [facility] Basophils/100 WBC (Bld) 0.3 % 0.0 - 2.0 % [facility] Differential cell count method Nom (Bld) AUTO DIFF % [facility] Eosinophils (Bld) [#/Vol] 0.0 10*3/uL 0.0 - 0.7 10*3/uL [facility] Eosinophils/100 WBC (Bld) 0.0 % 0.0 - 11.0 % [facility] Erythrocyte distribution width (RBC) [Ratio] 13.2 % 11.5 - 14.5 % [facility] Hematocrit (Bld) [Volume fraction] 33.6 % Low 36.0 - 48.0 % [facility] Hemoglobin (Bld) [Mass/Vol] 12.0 g/dL [facility] Interpretation and review of laboratory results Abnormal [facility] Lymphocytes (Bld) [#/Vol] 1.1 10*3/uL Low 1.2 - 3.4 10*3/uL [facility] Lymphocytes/100 WBC (Bld) 16.4 % Low 20.0 - 55.0 % [facility] MCH (RBC) [Entitic mass] 33.6 pg 26.0 - 35.0 PG [facility] MCHC (RBC) [Mass/Vol] 35.6 g/dL [facility] MCV (RBC) [Entitic vol] 94.2 fL A [facility] Monocytes (Bld) [#/Vol] 0.3 10*3/uL 0.0 - 0.7 10*3/uL [facility] Monocytes/100 WBC (Bld) 4.3 % 0.0 - 10.0 % [facility] Neutrophils (Bld) [#/Vol] 5.2 10*3/uL 1.4 - 6.5 10*3/uL [facility] Neutrophils/100 WBC (Bld) 79.0 % High 37.0 - 75.0 % [facility] Platelet mean volume (Bld) [Entitic vol] 7.0 fL Low [facility] Platelets (Bld) [#/Vol] 226 10*3/uL 130 - 400 10*3/uL [facility] RBC (Bld) [#/Vol] 3.57 10*6/uL Low 4.0 - 5.4 10*6/uL [facility] WBC (Bld) [#/Vol] 6.6 10*3/uL 3.6 - 11.0 10*3/uL [facility] BODY FLUID CELL COUNTon 03- Appearance (Body fld) HAZY [facility] Color (Body fld) LIGHT YELLOW [facility] RBC Auto (Body fld) [#/Vol] 3376 /CMM [facility] Specimen source Nom (Body fld) SYNOVIAL FLUID [facility] WBC (Body fld) [#/Vol] 57 10*3/uL /CMM [facility] DIFFERENTIAL, FLUIDon 2023 BASOPHILS, FLUID 2 % [facility] Comment on above: NO REFERENCE RANGE E STABLISHED Eosinophils/100 WBC (Body fld) 4 % [facility] Comment on above: NO REFERENCE RANGE E STABLISHED Lymphocytes/100 WBC (Body fld) 22 % [facility] Comment on above: NO REFERENCE RANGE E STABLISHED MESOTHELIAL CELLS, FLUID 8 % [facility] Comment on above: NO REFERENCE RANGE E STABLISHED Monocytes+Macrophages/1 00 WBC Manual cnt (Body fld) 48 % [facility] Comment on above: NO REFERENCE RANGE E STABLISHED Neutrophils/100 WBC (Body fld) 16 % [facility] Comment on above: NO REFERENCE RANGE E STABLISHED [facility] REPEAT ABO/RH (D) TYPINGon 0 07-07-2023 ABO and Rh group Nom (Bld ) Positive [facility] SCREEN: MRSA ONLY, NARES (IS OLATION SCREEN)on 07-07-2023 MRSA isol Org specific cx Ql (Nose) Negative NEGATIVE [facility] STAPHYOCOCCUS AUREUS BY PCR Negative NEGATIVE [facility] Comment on above: TESTING PERFORMED BY PCR [facility] XR Pelvis 2 Viewson 07-07-19 24 FINDINGS/IMPRESSION: 1. Right total hip arthroplasty is [...] or other acute bony abnormality is seen. [employer] Radiology Study observation (narrative) [employer] XR Pelvis 2 ViewsOrdered By: Parveen Mason on 07-07-2023 [employer] Work Phone: POCT EKGOrdered By: Samantha uGrrola on 06-02-2023 [employer] COBALT AND CHROMIUM,WBon Chromium (Bld) [Mass/Vol] 1.1 [employer] Comment on above: Reference range: <3. 0 Unit: ng/mL PERFORMED BY [employer] (Bld) [Mass/Vol] <1.0 A [employer] Comment on above: Reference range: <3. 0 Unit: ng/mL (NOTE) Chromium and cobalt analysis performed by inductively coupled plasma/mass spectrometry (ICP/MS). Reference range is for patients with cvhlj-ny-cqyeh (MoM) orthopedic implants. The [place] [employer] Hip and Knee Sur[employer], the [place] [employer] Orthopaedic Surgeons, and The Hip Society, have published a consensus statement, Risk Stratification Algorithm for Management of Patients with Lsrsg-lh-Ydxrr Hip Arthroplasty. The algorithm is intended as an aid to orthopedic surgeons in the assessment and management of patients with Kaywb-fr-Xpmrh bearings. The systematic risk stratification includes recommendations [...] developed and its performance characteristics determined by [employer]. It has not been cleared or approved by the Food and Drug Administration. [facility] [employer] C REACTIVE PROTEINon 024 CRP [Mass/Vol] 48.4 mg/L High 0 - 10 MG/L [facility] Interpretation and review of laboratory results Abnormal [employer] [facility] SEDIMENTATION RATE, AUTOMATE Don 05-14-2023 ESR (Bld) [Velocity] 31 mm/h High [facility] [facility] Interpretation and review of laboratory results Abnormal [employer] Urinalysis - DIPSTICKon 10-03 Appearance (U) cloudy [employer] Other Bilirubin Ql (U) [employer] Other Color (U) yellow [employer] Other Glucose Ql (U) Negative [employer] Other Hemoglobin Ql (U) [employer] Other Ketones Ql (U) Negative [employer] Other Leukocyte esterase Test strip Ql (U) moderate [employer] Other Nitrite Ql (U) Positive [employer] Other pH (U) 5 [pH] [employer] Other Protein Ql (U) Negative [employer] Other Specific gravity (U) [Rel density] 1.010 [employer] Other Urobilinogen (U) [Mass/Vol] off chart [employer] Other Urinalysis - DIPSTICK [employer] Other Urine Cultureon 10-27-2022 Bacteria identified Cx Nom (U) ORGANISM: Escherichia coli (O:ESCCOL) [address] Count >100,000 Aerobic AUBREY Charge (NMIC56) ---- SUSCEPTIBILITY --- ORGANISM: O:ESCCOL ANTIBIOTIC INTERPRETATION AUBREY Amikacin S <16 Amoxacillin/K Clavulanate S <8 Ampicillin S <8 Ampicillin/Sulbactam S <4 Aztreonam S <4 Cefazolin S <2 Cefepime S <2 Ceftazidime S <1 Ceftazidime/Avibactam S <4 Ceftolozane/Tazobacta m S <2 Ceftriaxone S <1 Cefuroxime S <4 Ciprofloxacin S <0.25 Ertapenem S <0.5 Gentamicin S <2 Levofloxacin S <0.5 Meropenem S <1 Meropenem/Vaborbactam S <2 Nitrofurantoin S <32 Piperacillin/Tazobact am S <8 Tetracycline S <4 Tigecycline S <2 Tobramycin S <2 Trimethoprim/Sulfamet hoxazole S <0.5 S = SUSCEPTIBLE I = [...] RESISTANT TO ALL B-LACTAM DRUGS. PERFORMED BY: [place] [address] PATHOLOGIST FINANCIAL SYSTEMS DIRECTOR JOSE GUADALUPE FERGUSON M.D. Normal [facility] Comment on above: Performed By: #### C UU #### [facility] [address] Urinalysis - DIPSTICKon 06-05 Appearance (U) cloudy [place] [employer] Other Bilirubin Ql (U) Negative [employer] Other Color (U) pale yellow [facility] [email or web address] Other Glucose Ql (U) Negative [employer] Other Hemoglobin Ql (U) non hem-trace [facility] [email or web address] Other Ketones Ql (U) trace [employer] Other Leukocyte esterase Test strip Ql (U) moderate [facility] [email or web address] Other Nitrite Ql (U) Negative [employer] Other pH (U) 5 [pH] [facility] [email or web address] Other Protein Ql (U) trace [employer] Other Specific gravity (U) [Rel density] 1.005 [facility] [email or web address] Other Urobilinogen (U) [Mass/Vol] normal [facility] [email or web address] Other Urinalysis - DIPSTICK [facility] [email or web address] Other CULTURE URINEon 06-11-2022 CULTURE URINE Isolate 1 Escherichia coli >100,000 cfu/mL of ORGANISM 1 Escherichia coli ANTIBIOTIC M.I.C RX STATUS Ampicillin 4 S F Ampicillin/Sulbactam <=2 S F Piperacillin/Tazobact am <=4 S F Cefazolin <=4 S F Ceftazidime <=1 S F Ceftriaxone <=1 S F Ertapenem <=0.5 S F Imipenem <=0.25 S F Amikacin <=2 S F Gentamicin <=1 S F Tobramycin <=1 S F Ciprofloxacin <=0.25 S F Levofloxacin <=0.12 S F Nitrofurantoin <=16 S F Trimethoprim/Sulfamet hoxazole <=20 S F Normal [facility] Comment on above: Performed By: #### U RCX #### [facility] [address] [place] [address] Dr. Florencio Narayanan CARDIAC AMBER ADMITon 023 CK [Catalytic activity/Vol] 44 U/L Normal 26-192 [facility] Comment on above: Performed By: #### C MP, LIPA, CMADM #### [facility] [address] [address] [address] Florencio Narayanan CK.MB [Mass/Vol] ng/mL Normal <=3.60 [facility] Comment on above: Performed By: #### C MP, LIPA, CMADM #### [facility] [address] [place] [address] Dr. Florencio Narayanan HSTROP 14.6 pg/mL Normal 4.0-51.[address] [facility] Comment on above: Result Comment: CUT- OFF POINTS HAVE BEEN ESTABLISHED BASED ON THE FOURTH UNIVERSAL DEFINITIONS OF MYOCARDIAL INFARCTION. THE UPPER REFERENCE LIMIT (URL) OF TROPONIN, DEFINED THE 99TH PERCENTILE OF cTnI DISTRIBUTION IN A REFERENCE POPULATION, HAS BEEN CONFIRMED THE DECISION THRESHOLD FOR [place] DIAGNOSIS. Performed By: #### C MP, LIPA, CMADM #### [facility] [address] [place] [address] Dr. Florencio Narayanan UMER 109 ng/mL Critically high 9-82 [facility] Comment on above: Performed By: #### C MP LIPA, CMADM #### [facility] [address] [place] [address] Dr. Florencio Narayanan CBC AUTO DIFFon 06-09-2022 BASO # 0.1 103/ul Normal 0.0-0.1 [facility] Comment on above: Performed By: #### C BC #### [facility] [address] [place] [address] Dr. Florencio Narayanan Basophils/100 WBC (Bld) 0.4 % Normal 0.2-2.0 [facility] Comment on above: Performed By: #### C BC #### [facility] [address] [place] [address] Dr. Florencoi Narayanan EO # 0.0 103/ul Normal 0.0-0.7 [facility] Comment on above: Performed By: #### C BC #### [facility] [address] [place] [address] Dr. Florencio Narayanan Eosinophils/100 WBC (Bld) 0.2 % Critically low 0.9-7.0 [facility] Comment on above: Performed By: #### C BC #### [facility] [address] [place] [address] Dr. Florencio Narayanan Erythrocyte distribution width (RBC) [Ratio] 12.3 % Normal 11.0-15.0 [facility] Comment on above: Performed By: #### C BC #### [facility] [address] [place] [address] Dr. Florencio Narayanan Hematocrit (Bld) [Volume fraction] 38.4 % Normal 36.0-48.0 [facility] Comment on above: Performed By: #### C BC #### [facility] [address] [place] [address] Dr. Florencio Narayanan Hemoglobin (Bld) [Mass/Vol] 12.7 g/dL Normal 12.0-16.0 [facility] Comment on above: Performed By: #### C BC #### [facility] [address] [place] [address] Dr. Florencio Narayanan IG # 0.06 10e3/ul Critically high 0.00-0.03 [facility] Comment on above: Performed By: #### C BC #### [facility] [address] [place] [address] Dr. Florencio Narayanan IG % 0.5 % Normal 0.0-0.5 [facility] Comment on above: Performed By: #### C BC #### [facility] [address] [place] [address] Dr. Florencio Narayanan LYMPH # 1.0 103/ul Critically low 1.2-3.8 [facility] Comment on above: Performed By: #### C BC #### [facility] [address] [place] [address] Dr. Florencio Narayanan Lymphocytes/100 WBC (Bld) 8.4 % Critically low 20.5-60.0 [facility] Comment on above: Performed By: #### C BC #### [facility] [address] [place] [address] Dr. Florencio Narayanan MANUAL DIFF REQ NO Normal [facility] Comment on above: Performed By: #### C BC #### [facility] [address] [place] [address] Dr. Florencio Narayanan MCH (RBC) [Entitic mass] 32.4 pg Normal 26.7-34.0 [facility] Comment on above: Performed By: #### C BC #### [facility] [address] [place] [address] Dr. Florencio Narayanan MCHC (RBC) [Mass/Vol] 33.1 g/dL Normal 29.9-35.2 [facility] Comment on above: Performed By: #### C BC #### [facility] [address] [place] [address] Dr. Florencio Narayanan MCV (RBC) [Entitic vol] 98.0 fL Normal 81.0-99.0 [facility] Comment on above: Performed By: #### C BC #### [facility] [address] [place] [address] Dr. Florencio Narayanan MONO # 1.6 103/ul Critically high 0.3-0.8 [facility] Comment on above: Performed By: #### C BC #### [facility] [address] [place] [address] Dr. Florencio Narayanan Monocytes/100 WBC (Bld) 13.1 % Critically high 1.7-12. 0 [facility] Comment on above: Performed By: #### C BC #### [facility] [address] [place] [address] Dr. Florencio Narayanan NEUT # 9.5 103/ul Critically high 1.4-6.5 [facility] Comment on above: Performed By: #### C BC #### [facility] [address] [place] [address] Dr. Florencio Narayanan Neutrophils/100 WBC (Bld) 77.4 % Critically high 43.0-75.0 [facility] Comment on above: Performed By: #### C BC #### [facility] [address] [place] [address] Dr. Florencio Narayanan Platelet mean volume (Bld) [Entitic vol] 9.4 fL Critically low 9.5-13.[address] [facility] Comment on above: Performed By: #### C BC #### [facility] [address] [place] [address] Dr. Florencio Narayanan PLT 140 103/ul Critically low 150-450 [facility] Comment on above: Performed By: #### C BC #### [facility] [address] [address] [address] Florencio Narayanan RBC 3.92 106/ul Critically low 4.20-5.40 [facility] Comment on above: Performed By: #### C BC #### [facility] [address] [place] [address] Dr. Florencio Narayanan WBC 12.2 103/ul Critically high 4.0-11.0 [facility] Comment on above: Performed By: #### C BC #### [facility] [address] [place] [address] STROKE HEAD WOon [...] LUANA VILLAFANA Date: 2022-06-09 12:[address] [facility] Covid-19 PCR ([facility])on SARS-CoV-2 (COVID-19) RNA CHRISTOPHER+probe Ql (Unsp spec) Not detected Normal NOT DETECTED [facility] Comment on above: Result Comment: When [...] for this test is supported by the Animal Geneticist of Health and Human Service's declaration that [...] longer be used). Performed By: #### [facility] #### [facility] [address] [place] [address] Dr. Florencio Narayanan ER URINE PROFILEon 3 Bilirubin Ql (U) Negative Normal NEGATIVE [facility] Comment on above: Performed By: #### LIYAH LERO #### [facility] [address] [place] [address] Dr. Florencio Narayanan Clarity (U) CLEAR Normal CLEAR [facility] Comment on above: Performed By: #### LIYAH LERO #### [facility] [address] [place] [address] Dr. Florencio Narayanan Color (U) LT. YELLOW Normal YELLOW [facility] Comment on above: Performed By: #### LIYAH LERO #### [facility] [address] [place] [address] Dr. Florencio Narayanna ERUAHD A micrscopic examination will be performed if indicated. Normal [facility] Comment on above: Performed By: #### LIYAH LERO #### [facility] [address] [place] [address] Dr. Florencio Narayanan Glucose Ql (U) Negative Normal NEGATIVE [facility] Comment on above: Performed By: #### Malini PIZANO UMICRO #### [facility] [address] [place] [address] Dr. Florencio Narayanan Hemoglobin Ql (U) LARGE Abnormal NEGATIVE [facility] Comment on above: Performed By: #### Malini PIZANO UMICRO #### [facility] [address] [place] [address] Dr. Florencio Narayanan Ketones Ql (U) TRACE Abnormal NEGATIVE [facility] Comment on above: Performed By: #### Malini PIZANO UMICRO #### [facility] [address] [place] [address] Dr. Florencio Narayanan LEUKOCYTES LARGE Abnormal NEGATIVE [facility] Comment on above: Performed By: #### Malini PIZANO UMICRO #### [facility] [address] [place] [address] Dr. Florencio Narayanan Nitrite Ql (U) Positive Abnormal NEGATIVE [facility] Comment on above: Performed By: #### Malini PIZANO UMICRO #### [facility] [address] [place] [address] Dr. Florencio Narayanan pH (U) 5.5 [pH] Normal 5-9 [facility] Comment on above: Performed By: #### Malini PIZANO UMICRO #### [facility] [address] [place] [address] Dr. Florencio Narayanan SPEC GRAVITY 1.010 Normal 1.005-<=1.0 25 [facility] Comment on above: Performed By: #### Malini PIZANO UMICRO #### [facility] [address] [place] [address] Dr. Florencio Narayanan UA PROTEIN TRACE Normal NEGATIVE/ TRACE [facility] Comment on above: Performed By: #### Malini PIZANO UMICRO #### [facility] [address] [place] [address] Dr. Florencio Narayanan UR MICRO IND INDICATED Normal [facility] Comment on above: Performed By: #### Malini PIZANO UMICRO #### [facility] [address] [place] [address] Dr. Florencio Narayanan Urobilinogen Qn (U) 0.2 {Zenia'U}/dL Normal 0.2 - 1. 0 [facility] Comment on above: Performed By: #### Malini PIZANO UMICRO #### [facility] [address] [place] [address] Dr. Florencio Narayanan LIPASEon 06-09-2022 Lipase [Catalytic activity/Vol] 68.0 U/L Critically low 73.0-393.0 [facility] Comment on above: Performed By: #### C MP, LIPA, CMADM #### [facility] [address] [place] [address] Dr. Florencio Narayanan PROF 14(COMP METB)on 023 Albumin [Mass/Vol] 2.5 g/dL Critically low 3.4-5.0 [facility] Comment on above: Performed By: #### C MP, LIPA, CMADM #### [facility] [address] [place] [address] Dr. Florencio Narayanan Albumin/Globulin [Mass ratio] 0.6 {ratio} Normal [facility] Comment on above: Performed By: #### C MP, LIPA, CMADM #### [facility] [address] [place] [address] Dr. Florencio Narayanan ALP [Catalytic activity/Vol] 150 U/L Critically high 46-116 [facility] Comment on above: Performed By: #### C MP, LIPA, CMADM #### [facility] [address] [place] [address] Dr. Florencio Narayanan ALT [Catalytic activity/Vol] 27 U/L Normal 14-59 [facility] Comment on above: Performed By: #### C MP, LIPA, CMADM #### [facility] [address] [place] [address] Dr. Florencio Narayanan Anion gap [Moles/Vol] 12.8 mmol/L Normal [facility] Comment on above: Performed By: #### C MP, LIPA, CMADM #### [facility] [address] [place] [address] Dr. Florencio Narayanan AST [Catalytic activity/Vol] 31 U/L Normal 15-37 [facility] Comment on above: Performed By: #### C MP, LIPA, CMADM #### [facility] [address] [place] [address] Dr. Florencio Narayanan Bilirubin [Mass/Vol] 1.1 mg/dL Critically high 0.2-1.0 [facility] Comment on above: Performed By: #### C MP, LIPA, CMADM #### [facility] [address] [address] [address] Florencio Narayanan Calcium [Mass/Vol] 9.1 mg/dL Normal 8.5-10.1 [facility] Comment on above: Performed By: #### C MP, LIPA, CMADM #### [facility] [address] [address] [address] Florencio Narayanan Chloride [Moles/Vol] 95 mmol/L Critically low 98-107 [facility] Comment on above: Performed By: #### C MP, LIPA, CMADM #### [facility] [address] [address] [address] Florencio Narayanan CO2 [Moles/Vol] 29.4 mmol/L Normal 21.0-32.0 [facility] Comment on above: Performed By: #### C MP, LIPA, CMADM #### [facility] [address] [address] [address] Florencio Narayanan Creatinine [Mass/Vol] 1.34 mg/dL Critically high 0.55-1.02 [facility] Comment on above: Performed By: #### C MP, LIPA, CMADM #### [facility] [address] [address] [address] Florencio Narayanan EGFR-AF [place]AN 47 mL/min/1.73m2 Critically low >=[address] [facility] Comment on above: Performed By: #### C MP, LIPA, CMADM #### [facility] [address] [address] [address] Florencio Narayanan EGFR-NON AF [place] 39 mL/min/1.73m2 Critically low >=60 [facility] Comment on above: Performed By: #### C MP, LIPA, CMADM #### [facility] [address] [address] [address] Florencio Narayanan Globulin (S) [Mass/Vol] 4.3 g/dL Normal [facility] Comment on above: Performed By: #### C MP, LIPA, CMADM #### [facility] [address] [address] [address] Florencio Narayanan Glucose [Mass/Vol] 118 mg/dL Critically high 74-106 [facility] Comment on above: Performed By: #### C MP, LIPA, CMADM #### [facility] [address] [address] [address] Florencio Narayanan Potassium [Moles/Vol] 3.2 mmol/L Critically low 3.5-5.1 [facility] Comment on above: Performed By: #### C MP LIPA, CMADM #### [facility] [address] [place] [address] Dr. Florencio Narayanan Protein [Mass/Vol] 6.8 g/dL Normal 6.4-8.2 [facility] Comment on above: Performed By: #### C MP, LIPA, CMADM #### [facility] [address] [place] [address] Dr. Florencio Narayanan Sodium [Moles/Vol] 134 mmol/L Critically low 136-145 [facility] Comment on above: Performed By: #### C MP LIPA, CMADM #### [facility] [address] [place] [address] Dr. Florencio Narayanan Urea nitrogen [Mass/Vol] 29.0 mg/dL Critically high 7.0-18.0 [facility] Comment on above: Performed By: #### C MP, LIPA, CMADM #### [facility] [address] [place] [address] Dr. Florencio Narayanan Urea nitrogen/Creatinine [Mass ratio] 21.6 mg/mg Normal [facility] Comment on above: Performed By: #### C MP, LIPA, CMADM #### [facility] [address] [place] [address] Dr. Florencio Narayanan URINE MICROSCOPIC ONLYon BACTERIA SMALL Abnormal NONE SEEN [facility] Comment on above: Performed By: #### ADIEL LE #### [facility] [address] [place] [address] Dr. Florencio Narayanan Bacteria identified Cx Nom (U) INDICATED Normal [facility] Comment on above: Performed By: #### Malini PIZANO UMICRO #### [facility] [address] [place] [address] Dr. Florencio Narayanan CAST NONE SEEN Normal NONE SEEN [facility] Comment on above: Performed By: #### Malini PIZANO UMICRO #### [facility] [address] [place] [address] Dr. Florencio Narayanan Crystals LM Nom (Urine sed) NONE SEEN Normal NONE SEEN [facility] Comment on above: Performed By: #### Malini PIZANO UMICRO #### [facility] [address] [place] [address] Dr. Florencio Narayanan Epithelial cells LM Ql (Urine sed) FEW Abnormal NONE SEEN /RARE [facility] Comment on above: Performed By: #### Malini PIZANO UMICRO #### [facility] [address] [place] [address] Dr. Florencio Narayanan MUCOUS NONE SEEN Normal NONE SEEN [facility] Comment on above: Performed By: #### Malini PIZANO UMICRO #### [facility] [address] [place] [address] Dr. Florencio Narayanan RBC 2-5 Abnormal 0-[address] [facility] Comment on above: Performed By: #### Malini PIZANO UMMANUELRO #### [facility] [address] [place] [address] Dr. Florencio Narayanan WBC 10-20 Abnormal NONE SEEN [facility] Comment on above: Performed By: #### Malini PIZANO UMICRO #### [facility] [address] [place] [address] Dr. Florencio Narayanan XR CHEST 2 Von [...] JOAQUÍN ATKINS Date: 2022-06-09 12:[address] [facility] CULTURE URINEon 04-16-2022 CULTURE URINE Isolate 1 Escherichia coli >100,000 cfu/mL of ORGANISM 1 Escherichia coli ANTIBIOTIC M.I.C RX STATUS Ampicillin >=32 R F Ampicillin/Sulbactam 16 I F Piperacillin/Tazobact am <=4 S F Cefazolin <=4 S F Ceftazidime <=1 S F Ceftriaxone <=1 S F Ertapenem <=0.5 S F Imipenem <=0.25 S F Amikacin <=2 S F Gentamicin >=16 R F Tobramycin 4 S F Ciprofloxacin <=0.25 S F Levofloxacin <=0.12 S F Nitrofurantoin <=16 S F Trimethoprim/Sulfamet hoxazole >=320 R F Normal [facility] Comment on above: Performed By: #### C BC #### [facility] [address] [place] [address] Dr. Florencio Narayanan MRI Hip w/o Righton [...] by Ramon Ambrocio on 09/11/2021 1545 Normal [facility] Internet Project Manager Consult Reporton 03-14-2020 Consult Report [facility] BETTIE BURNS [address]ET [id number] OBSV ANABEL WATKINS MD [id number] REFERRING PHYSICIAN: CONSULTING PHYSICIAN: Renetta Almanzar MD DATE OF CONSULTATION: 03/11/2020 REASON: A near syncopal event in a 74-year-old female, with a history of atrial fibrillation, previous cardiac ablation, who was the time of evaluation noted to have a positive test for COVID. HISTORY OF PRESENT ILLNESS: Mrs. Burns is a very pleasant, alert and oriented -[id number]-[id number] female who was brought into the emergency [...] had COVID. PAST MEDICAL HISTORY: As above. PERSONAL/FAMILY/SOCIA L HISTORY: Patient is . She is a [...] including quarantine. Many thanks. MD KALYAN GONZALEZ/Isidro /[id number] [facility] BASICMETAon 03-11-2020 GFR AA >60 Normal [facility] Comment on above: Result Comment: Afri can Bahamian GFR Calc Medical judgement is necessary to [...] for drug dosing. Performed By: #### 1 [id number], [id number], [id number] ####[facility] [id number] [place] [address] Medical Director: Fahad Cast MD GFR/1.73 sq [...] for drug dosing. Performed By: #### 1 00933, [id number], [id number] ####[facility] [address] [place] [address] Medical Director: Fahad Cast MD Osmolality [Osmolality] 291 mOsm/kg Normal 275-295 [facility] Comment on above: Performed By: #### 1 88119, 933842, 195675 ####[facility] [address] [place] [address] Medical Director: Fahad Cast MD Urea nitrogen/Creatinine [Mass ratio] 24.5 mg/mg Normal [facility] Comment on above: Performed By: #### 1 44497, 478522, 800640 ####[facility] [address] [place] [address] Medical Director: Fahad Cast MD Calcium [Mass/Vol] 9.3 mg/dL Normal 8.5-10.5 [facility] Comment on above: Performed By: #### 1 12499, 780983, 698137 ####[facility] [address] [place] [address] Medical Director: Fahad Cast MD Chloride [Moles/Vol] 108 mmol/L Normal 100-109 [facility] Comment on above: Performed By: #### 1 08277, 733613, 288083 ####[facility] [address] [place] [address] Medical Director: Fahad Cast MD CO2, venous 28.9 mmol/L Normal 21.0-32.0 [facility] Comment on above: Performed By: #### 1 56946, 676902, 141685 ####[facility] [address] [place] [address] Medical Director: Fahad Cast MD Creatinine [Mass/Vol] 1.0 mg/dL Normal 0.6-1.0 [facility] Comment on above: Performed By: #### 1 26555, 013144, 420244 ####[facility] [address] [place] [address] Medical Director: Fahad Cast MD Glucose [Mass/Vol] 98 mg/dL Normal 72-100 [facility] Comment on above: Result Comment: Sharon puncture should occur prior to sulfasalazine administration due to the potential for falsely depressed results. Venipuncture should occur prior to sulfapyridine administration due to the potential falsely elevated results. Baseline assay values before administration of sulfasalazine and sulfapyridine therapy would not be affected. Performed By: #### 1 57388, 409594, 314732 ####[facility] [address] [place] [address] Medical Director: Fahad Cast MD Potassium [Moles/Vol] 4.2 mmol/L Normal 3.5-5.1 [facility] Comment on above: Performed By: #### 1 59717, 313209, 621699 ####[facility] [address] [place] [address] Medical Director: Fahad Cast MD Sodium [Moles/Vol] 144 mmol/L Normal 135-145 [facility] Comment on above: Performed By: #### 1 56326, 006683, 172170 ####[facility] [address] [place] [address] Medical Director: Fahad Cast MD Urea nitrogen [Mass/Vol] 24 mg/dL High 10-20 [facility] Comment on above: Performed By: #### 1 36050, 932009, 605852 ####[facility] [address] [place] [address] Medical Director: Fahad Cast MD CBCNDon 03-11-2020 Erythrocyte distribution width (RBC) [Ratio] 14.4 % Normal 11.5-14.5 [facility] Comment on above: Performed By: #### 1 25643, 153392, 124527 #### [facility] [address] [place] [address] Personal Lines Underwriter: Fahad Cast MD Hematocrit (Bld) [Volume fraction] 33.9 % Low 36.0-46.0 [facility] Comment on above: Performed By: #### 1 04316, 623575, 760219 #### [facility] [address] [place] [address] Personal Lines Underwriter: Fahad Cast MD Hemoglobin (Bld) [Mass/Vol] 11.2 g/dL Low 12.0-16.0 [facility] Comment on above: Performed By: #### 1 72560, 909086, 944337 #### [facility] [address] [place] [address] Personal Lines Underwriter: Fahad Cast MD MCH (RBC) [Entitic mass] 29.5 pg Normal 27.0-34.0 [facility] Comment on above: Performed By: #### 1 73409, 185302, 606299 #### [facility] [address] [place] [address] Personal Lines Underwriter: Fahad Cast MD MCHC (RBC) [Mass/Vol] 33.0 g/dL Normal 32.0-37.0 [facility] Comment on above: Performed By: #### 1 91429, 251882, 812796 #### [facility] [address] [place] [address] Personal Lines Underwriter: Fahad Cast MD MCV (RBC) [Entitic vol] 89.5 fL Normal 80.0-100.0 [facility] Comment on above: Performed By: #### 1 41384, 036877, 489979 #### [facility] [address] [place] [address] Personal Lines Underwriter: Fahad Cast MD Platelet mean volume (Bld) [Entitic vol] 6.8 fL Low 7.4-10.4 [facility] Comment on above: Performed By: #### 1 97793, 562724, 432589 #### [facility] [address] [place] [address] Personal Lines Underwriter: Fahad Cast MD Platelets (Bld) [#/Vol] 232 x1000 Normal 150-450 [facility] Comment on above: Performed By: #### 1 67715, 675137, 181456 #### [facility] [address] [place] [address] Personal Lines Underwriter: Fahad Cast MD RBC (Bld) [#/Vol] 3.79 x10 Low 4.20-5.40 [facility] Comment on above: Result Comment: Note : RBC morphology is normal unless otherwise stated. Evaluation performed only if differential is requested. Performed By: #### 1 42358, 502457, 811101 #### [facility] [address] [place] [address] Personal Lines Underwriter: Fahad Cast MD WBC (Bld) [#/Vol] 5.8 10*3/uL Normal [facility] Comment on above: Performed By: #### 1 61422, 688466, 874462 #### [facility] [address] [place] [address] Personal Lines Underwriter: Fahad Cast MD WBC (Bld) [#/Vol] 5.8 x10 Normal 4.5-11.0 [facility] Comment on above: Performed By: #### 1 43446, 328948, 678854 #### [facility] [address] [place] [address] Personal Lines Underwriter: Fahad Cast MD D Dimer HSon 03-11-2020 D Dimer HS 821 ng/mL FEU High <=499 [facility] Comment on above: Result Comment: Excl usion of PE and DVT The D Dimer HS assay is reported in ng/ml Fibrinogen Equivalent Units (FEU). Per jumpbasting collar baster?s instructions for use, a value less than 500ng/ml (FEU) may help to exclude DVT and /or PE in outpatients when the assay is used with a clinical pretest probability assessment. D-Dimer used for DIC Screens Assay results should be used with other information, including the clinical context in forming a diagnosis. Performed By: #### C [id number] ####[facility] [address] [place] [address] Medical Director: Fahad Cast MD LDHon 03-11-2020 LDH 198 unit/L Normal 84-246 [facility] Comment on above: Performed By: #### 1 93334, 078278, 491485 #### [facility] [address] [place] [address] Personal Lines Underwriter: Fahad Cast MD Progress Note-Physicianon Progress Note-Physician [...] Continue home medications. 6) DVT ppx: On [employer] Normal [facility] Utilization Review Noteon Utilization Review Note ID Consult pendi ng DISCHARGE WRITTEN AND PLANNED. Normal [facility] AUTO DIFFon 03-10-2020 Basophils (Bld) [#/Vol] 0.05 x1000 Normal 0.00-0.20 [facility] Comment on above: Performed By: #### 1 98147, 434918, 2351141 ####[facility] [address] [place] [address] Medical Director: Fahad Cast MD Basos % 0.6 % [facility] Comment on above: Performed By: #### 1 49101, 241189, 2254863 ####[facility] [address] [place] [address] Medical Director: Fahad Cast MD Eos Count 0.15 x1000 Normal 0.00-0.50 [facility] Comment on above: Performed By: #### 1 33257, 614888, 3561472 ####[facility] [address] [place] [address] Medical Director: Fahad Cast MD Eosinophils/100 WBC (Bld) 1.8 % [facility] Comment on above: Performed By: #### 1 15314, 225828, 6335243 ####[facility] [address] [place] [address] Medical Director: Fahad Cast MD Lymphocytes (Bld) [#/Vol] 1.05 x1000 Low 1.20-4.80 [facility] Comment on above: Performed By: #### 1 62729, 827157, 5447043 ####[facility] [address] [place] [address] Medical Director: Fahad Cast MD Lymphocytes/100 WBC (Bld) 12.7 % Normal [facility] Comment on above: Performed By: #### 1 76920, 100011, 0795725 ####[facility] [address] [place] [address] Medical Director: Fahad Cast MD [place] Count 0.70 x1000 Normal 0.10-1.00 [facility] Comment on above: Performed By: #### 1 23079, 713591, 6803078 ####[facility] [address] [place] [address] Medical Director: Fahad Cast MD Monocytes/100 WBC (Bld) 8.4 % Normal [facility] Comment on above: Performed By: #### 1 81231, 591895, 8100836 ####[facility] [address] [place] [id number] Medical Director: Fahad Cast MD Neutrophils (Bld) [#/Vol] 6.32 x1000 Normal 1.40-8.80 [facility] Comment on above: Performed By: #### 1 70324, 638708, 4288210 ####[facility] [address] [place] [address] Medical Director: Fahad Cast MD Neutrophils/100 WBC (Bld) 76.4 % Normal [facility] Comment on above: Performed By: #### 1 57322, 135373, 8738676 ####[facility] [address] [place] [address] Medical Director: Fahad Cast MD COMPMETAon 03-10-2020 Albumin [Mass/Vol] 3.4 g/dL Normal 3.4-5.0 [facility] Comment on above: Performed By: #### 1 42133, 846062, 3097153 ####[facility] [address] [place] [address] Medical Director: Fahad Cast MD Albumin/Globulin [Mass ratio] 0.8 {ratio} Normal [facility] Comment on above: Performed By: #### 1 83556, 669253, 3830042 ####[facility] [address] [place] [address] Medical Director: Fahad Cast MD Alk Phos 71 unit/L Normal 45-117 [facility] Comment on above: Performed By: #### 1 15560, 940206, 5766891 ####[facility] [address] [place] [address] Medical Director: Fahad Cast MD Bilirubin [Mass/Vol] 0.37 mg/dL Normal 0.20-1.00 [facility] Comment on above: Result Comment: Use of this assay is not recommended for patients undergoing treatment with eltrombopag due to the potential for falsely elevated results. Performed By: #### 1 35963, 227975, 4237837 ####[facility] [address] [place] [address] Medical Director: Fahad Cast MD Calcium [Mass/Vol] 9.4 mg/dL Normal 8.5-10.5 [facility] Comment on above: Performed By: #### 1 54810, 342572, 4064443 ####[facility] [address] [place] [address] Medical Director: Fahad Cast MD Chloride [Moles/Vol] 108 mmol/L Normal 100-109 [facility] Comment on above: Performed By: #### 1 19831, 425413, 4137082 ####[facility] [address] [place] [address] Medical Director: Fahad Cast MD CO2, venous 28.2 mmol/L Normal 21.0-32.0 [facility] Comment on above: Performed By: #### 1 94484, 347544, 6025843 ####[facility] [address] [place] [address] Medical Director: Fahad Cast MD Creatinine [Mass/Vol] 1.2 mg/dL High 0.6-1.0 [facility] Comment on above: Performed By: #### 1 08356, 877433, 2302460 ####[facility] [address] [place], [place] [id number]) [phone] Director: Fahad Cast MD GFR AA 53 [facility] Comment on above: Result Comment: Afri can Bahamian GFR Calc Medical judgement is necessary to [...] for drug dosing. Performed By: #### 1 54045, 252870, 6564622 ####[facility] [address] [place] [address] Medical Director: Fahad Cast MD GFR/1.73 sq M predicted among non-blacks MDRD (S/P/Bld) [Vol rate/Area] 44 mL/min/1.73m? [facility] Comment on above: [...] for drug dosing. Performed By: #### 1 31197, 651664, 0561929 ####[facility] [address] [place] [address] Medical Director: Fahad Cast MD Globulin (S) [Mass/Vol] 4.0 g/dL Normal [facility] Comment on above: Performed By: #### 1 52687, 424072, 4560336 ####[facility] [address] [place], [place] [id number]) [phone] Director: Fahad Cast MD Glucose [Mass/Vol] 143 mg/dL High 72-100 [facility] Comment on above: Result Comment: Sharon puncture should occur prior to sulfasalazine administration due to the potential for falsely depressed results. Venipuncture should occur prior to sulfapyridine administration due to the potential falsely elevated results. Baseline assay values before administration of sulfasalazine and sulfapyridine therapy would not be affected. Performed By: #### 1 79223, 630667, 3487442 ####[facility] [address] [place] [address] Medical Director: Fahad Cast MD GOT 18 unit/L Normal 15-37 [facility] Comment on above: Result Comment: Sharon puncture should occur prior to sulfasalazine and/or sulfapyridine administration due to the potential for falsely depressed results. Baseline assay values before administration of sulfasalazine and sulfapyridine therapy would not be affected. Performed By: #### 1 13885, 253395, 1667664 ####[facility] [address] [place] [address] Medical Director: Fahad Cast MD GPT 19 unit/L Normal 13-56 [facility] Comment on above: Result Comment: Sharon puncture should occur prior to sulfasalazine and/or sulfapyridine administration due to the potential for falsely depressed results. Baseline assay values before administration of sulfasalazine and sulfapyridine therapy would not be affected. Performed By: #### 1 10990, 113959, 0717937 ####[facility] [address] [place], [place] [address]) [phone] Director: Fahad Cast MD Osmolality [Osmolality] 293 mOsm/kg Normal 275-295 [facility] Comment on above: Performed By: #### 1 25635, 538042, 3952484 ####[facility] [address] [place] [address] Medical Director: Fahad Cast MD Potassium [Moles/Vol] 4.0 mmol/L Normal 3.5-5.1 [facility] Comment on above: Performed By: #### 1 32925, 310653, 9230122 ####[facility] [address] [place] [address] Medical Director: Fahad Cast MD Protein [Mass/Vol] 7.4 g/dL Normal 6.0-8.5 [facility] Comment on above: Performed By: #### 1 97911, 280171, 0408080 ####[facility] [address] [place] [address] Medical Director: Fahad Cast MD Sodium [Moles/Vol] 142 mmol/L Normal 135-145 [facility] Comment on above: Performed By: #### 1 50766, 295410, 4167366 ####[facility] [address] [place] [address] Medical Director: Fahad Cast MD Urea nitrogen [Mass/Vol] 32 mg/dL High 10-20 [facility] Comment on above: Performed By: #### 1 35950, 394672, 5679568 ####[facility] [address] [place] [address] Medical Director: Fahad Cast MD Urea nitrogen/Creatinine [Mass ratio] 26.7 mg/mg Normal [facility] Comment on above: Performed By: #### 1 73761, 353300, 2936939 ####[facility] [address] [place] [address] Medical Director: Fahad Cast MD COVID-19 by PCR SWEDon 03-10 COVID-19 by PCR SWED Positive Abnormal [facility] Comment on above: Result Comment: CALL DEANNA CHRISTIE 03/10/2020 18:23:22 EST BY SHF; RBR Performed By: #### C [id number] ####[facility] [address] [place], [place] [address] Medical Director: Fahad Cast MD CRP QUANTon 03-10-2020 C-Reactive Protein, Quantitative 0.8 mg/dL High 0.0-0.3 [facility] Comment on above: Performed By: #### 1 02310, [id number], [id number], [id number] #### [facility] [address] [place] [address] Personal Lines Underwriter: Fahad Cast MD CT ABD PELVIS W [...] by: Oni Liu MD 03/10/2020 3:50 PM SIGNAL OPERATOR Technologist: LIEN BLANCA Dictated By: ONI [...] in ng/ml Fibrinogen Equivalent Units (FEU). Per jumpbasting collar baster?s instructions for use, a value less than 500ng/ml (FEU) may help to exclude DVT and /or PE in outpatients when the assay is used with a clinical pretest probability assessment. D-Dimer used for DIC Screens Assay results should be used with other information, including the clinical context in forming a diagnosis. Performed By: #### 1 64807, [id number], [id number], [id number] #### [facility] [address] [place] [address] Personal Lines Underwriter: Fahad Cast MD ED Physician Reporton 2019 [...] Line Saline Flush: 3 mL, IV Push, [id number] Documented Medications Documented Eliquis 5 mg oral [...] Interp, Sinus rhythm with first-degree AV block, TN interval 256, QT/QTc/433, incomplete right bundle branch [...] /100WBC NA Lymph % 12.7 % NA [place] % 8.4 % NA Neutrophil % 76.4 % NA Eosin % 1.8 % NA Basos % 0.6 % NA Lymph Count 1.05 x1000 LOW [place] Count 0.70 x1000 NORMAL Neutrophil Count (ANC) [...] by: Monae Hernandez MD 03/10/2020 1:58 PM SIGNAL OPERATOR Signed By: MONAE HERNANDEZ MD CT [...] by: Oni Liu MD 03/10/2020 3:50 PM SIGNAL OPERATOR Signed By: ONI LIU MD . [...] Course: improving. Impression and Plan Diagnosis Syncope ([id number] R55, Working, Medical) Plan Condition: Stable. Disposition: Place in Observation Telemetry Unit, JERRICA RUST MD. Counseled: Patient, Regarding diagnosis, Regarding diagnostic results, Regarding treatment plan, Patient indicated understanding of instructions. Notes: Aracely Cruz, am scribing for and in the presence of Gladys Hilario DO. Scribe Signature: AracelyFatemeh Oropeza, 03/10/2020 14:53 , I personally performed the [...] User: Neil Vázquez RN Referring Source: Location: [address] [place] [address] Emergency Department [address] [place] [address] Notes: Vital Signs: Doctor Call Back: DNR Status: Miscellaneous Issues: Normal [facility] ED Progress Noteon 0 ED Progress Note report not put in by previous rn pt here for syncopal episode after diarrhea episode pt has hx of afib. pt covid+ report called to neil silva will come get pt Normal [facility] FERRITINon 03-10-2020 Ferritin [Mass/Vol] 32 ng/mL Normal 8-252 [facility] Comment on above: Performed By: #### 1 44152, [id number], [id number], [id number] #### [facility] [address] [place] [address] Personal Lines Underwriter: Fahad Cast MD HEMJalyn 03-10-2020 DIFF? No Normal [facility] Comment on above: Performed By: #### 1 55865, 467292, 6304067 ####[facility] [address] [place], [place] [address]) [phone] Director: Fahad Cast MD Erythrocyte distribution width (RBC) [Ratio] 14.5 % Normal 11.5-14.5 [facility] Comment on above: Performed By: #### 1 16775, 313269, 7612340 ####[facility] [address] [place], [place] [address]) [phone] Director: Fahad Cast MD Hematocrit (Bld) [Volume fraction] 35.8 % Low 36.0-46.0 [facility] Comment on above: Performed By: #### 1 95938, 998311, 1178932 ####[facility] [address] [place], [place] [address]) [phone] Director: Fahad Cast MD Hemoglobin (Bld) [Mass/Vol] 11.7 g/dL Low 12.0-16.0 [facility] Comment on above: Performed By: #### 1 49072, 052661, 6499207 ####[facility] [address] [place] [address] Medical Director: Fahad Cast MD MCH (RBC) [Entitic mass] 29.4 pg Normal 27.0-34.0 [facility] Comment on above: Performed By: #### 1 21064, 739601, 4850224 ####[facility] [address] [place], [place] [address]) [phone] Director: Fahad Cast MD MCHC (RBC) [Mass/Vol] 32.7 g/dL Normal 32.0-37.0 [facility] Comment on above: Performed By: #### 1 34598, 238879, 3712346 ####[facility] [address] [place], [place] [address]) [phone] Director: Fahad Cast MD MCV (RBC) [Entitic vol] 89.8 fL Normal 80.0-100.0 [facility] Comment on above: Performed By: #### 1 43854, 132150, 2548173 ####[facility] [address] [place] [address] Medical Director: Fahad Cast MD Nucleated RBC (Bld) [#/Vol] 0 /100WBC Normal [facility] Comment on above: Performed By: #### 1 , 806342, 9073071 ####[facility] [address] [place] [address] Medical Director: Fahad Cast MD Platelet mean volume (Bld) [Entitic vol] 6.7 fL Low 7.4-10.4 [facility] Comment on above: Performed By: #### 1 , 639844, 1608414 ####[facility] [address] [place] [address] Medical Director: Fahad Cast MD Platelets (Bld) [#/Vol] 252 x1000 Normal 150-450 [facility] Comment on above: Performed By: #### 1 , 589454, 7932908 ####[facility] [address] [place] [address] Medical Director: Fahad Cast MD RBC (Bld) [#/Vol] 3.99 x10 Low 4.20-5.40 [facility] Comment on above: Result Comment: Note : RBC morphology is normal unless otherwise stated. Evaluation performed only if differential is requested. Performed By: #### 1 22811, 862246, 5046156 ####[facility] [address] [place] [address] Medical Director: Fahad Cast MD WBC (Bld) [#/Vol] 8.3 10*3/uL Normal [facility] Comment on above: Performed By: #### 1 , 869924, 3163742 ####[facility] [address] [place] [address] Medical Director: Fahad Cast MD WBC (Bld) [#/Vol] 8.3 x10 Normal 4.5-11.0 [facility] Comment on above: Performed By: #### 1 97450, 371584, 7849394 ####[facility] [address] [place] [address] Medical Director: Fahad Cast MD History and [...] Lactate [Moles/Vol] 1.8 mmol/L Normal 0.4-2.0 [facility] Comment on above: Performed By: #### 1 60042 #### [facility] [address] [place] [address] Personal Lines Underwriter: Fahad Cast MD LIPon 03-10-2020 Lipase [Catalytic activity/Vol] 135 unit/L Normal 73-393 [facility] Comment on above: Performed By: #### 1 52494, 967522, 866661 ####[facility] [address] [place] [address] Medical Director: Fahad Cast MD MG LEVELon 03-10-2020 Magnesium [Mass/Vol] 1.9 mg/dL Normal 1.6-2.6 [facility] Comment on above: Performed By: #### 1 13148, 740129, 385636 ####[facility] [address] [place] [address] Medical Director: Fahad Cast MD PCTon 03-10-2020 [...] or septic shock. Performed By: #### 1 25114, [id number], [id number], [id number] #### [facility] [address] [place] [address] Personal Lines Underwriter: Fahad Cast MD TROPONINon 03-10-2020 Troponin I.cardiac [Mass/Vol] ng/mL Normal 0.000-0.099 [facility] Comment on above: Result Comment: This test is a quantitative determination of cardiac troponin I. High levels of serum biotin may interfere with this test. Performed By: #### 1 88839, 793913, 905712 ####[facility] [address] [place] [address] Medical Director: Fahad Cast MD [...] by: Monae Hernandez MD 03/10/2020 1:58 PM SIGNAL OPERATOR Technologist: THANG JAMES Dictated By: MONAE HERNANDEZ MD Signed By: MONAE HERNANDEZ MD Signed Out: 03/10/20 14:58:26 Normal [facility] Vital Signs Date Time Vital Sign Value Performing Clinician Facility 12-29-2024 10:27-0400 Body height 165.1 cm Elliot Starks MD Work Phone: [facility] 12-29-2024 10:27-0400 Body mass index (BMI) [Ratio] 29.1 kg/m2 Elliot Starks MD Work Phone: [facility] 12-29-2024 10:27-0400 Body weight 79.4 kg Elliot Starks MD Work Phone: [facility] 12-29-2024 10:27-0400 Diastolic blood pressure 69 mm[Hg] Elliot Starks MD Work Phone: [facility] 12-29-2024 10:27-0400 Heart rate 52 /min Elliot Starks MD Work Phone: [facility] 12-29-2024 10:27-0400 Systolic blood pressure 148 mm[Hg] Elliot Starks MD Work Phone: [facility] 11-08-2024 08:34-0400 Body height 165.1 cm Radha Mart TABITHASaigeAUSTEN Work Phone: [facility] 11-08-2024 08:34-0400 Body mass index (BMI) [Ratio] 29.62 kg/m2 Radha Mart TABITHASaigeMAINTENANCE OF WAY SUPERVISOR Work Phone: [employer] [facility] 11-08-2024 08:34-0400 Body weight 80.74 kg Radha Mart INVENTORY TRANSCRIBER-MAINTENANCE OF WAY SUPERVISOR Work Phone: [employer] [facility] 11-08-2024 08:34-0400 Diastolic blood pressure 78 mm[Hg] Radha Mart INVENTORY TRANSCRIBER-MAINTENANCE OF WAY SUPERVISOR Work Phone: [facility] 11-08-2024 08:34-0400 Heart rate 55 /min Radha Mart APRNSaigeMAINTENANCE OF WAY SUPERVISOR Work Phone: [employer] [facility] 11-08-2024 08:34-0400 SaO2% (BldA) [Mass fraction] 96 % Radha Matr INVENTORY TRANSCRIBER-MAINTENANCE OF WAY SUPERVISOR Work Phone: [facility] 11-08-2024 08:34-0400 Systolic blood pressure 130 mm[Hg] Radha Mart APRN-MAINTENANCE OF WAY SUPERVISOR Work Phone: [facility] 07-14-2024 13:15-0400 Body height 165.1 cm Paula Barrera APRN-MAINTENANCE OF WAY SUPERVISOR Work Phone: [facility] 07-14-2024 13:15-0400 Body mass index (BMI) [Ratio] 27.96 kg/m2 Paula Barrera APRN-MAINTENANCE OF WAY SUPERVISOR Work Phone: [facility] 07-14-2024 13:15-0400 Body weight 76.2 kg Paula Barrera APRN-MAINTENANCE OF WAY SUPERVISOR Work Phone: [facility] 06-22-2024 12:54-0500 Blood Pressure Location Maria E Osman [facility] 06-22-2024 12:54-0500 Diastolic blood pressure 55 mm[Hg] Maria E Gutierreza [facility] 06-22-2024 12:54-0500 Heart rate 56 /min Maria E Gutierreza [facility] 06-22-2024 12:54-0500 Respiratory rate 18 /min Maria E Gutierreza [facility] 06-22-2024 12:54-0500 Systolic blood pressure 125 mm[Hg] Maria E Gutierreza [facility] 05-09-2024 09:17-0500 Body height 165.1 cm [facility] 05-09-2024 09:17-0500 Body mass index (BMI) [Ratio] 29.1 kg/m2 [facility] 05-09-2024 09:17-0500 Body weight 79.37 kg [facility] 05-09-2024 09:17-0500 Diastolic blood pressure 70 mm[Hg] [facility] 05-09-2024 09:17-0500 Heart rate 58 /min [facility] 05-09-2024 09:17-0500 Systolic blood pressure 116 mm[Hg] [facility] 04-30-2024 10:29-0500 Body height 165.1 cm [facility] 04-30-2024 10:29-0500 Body mass index (BMI) [Ratio] 29.1 kg/m2 [facility] 04-30-2024 10:29-0500 Body temperature 99.2 [degF] [facility] 04-30-2024 10:29-0500 Body weight 79.43 kg [facility] 04-30-2024 10:29-0500 Diastolic blood pressure 75 mm[Hg] [facility] 04-30-2024 10:29-0500 Heart rate 58 /min [facility] 04-30-2024 10:29-0500 Respiratory rate 16 /min [facility] 04-30-2024 10:29-0500 SaO2% (BldA) [Mass fraction] 94 % [facility] 04-30-2024 10:29-0500 Systolic blood pressure 146 mm[Hg] [facility] 02-01-2024 11:13-0400 Body height 165.1 cm [facility] 02-01-2024 11:13-0400 Body mass index (BMI) [Ratio] 28.3 kg/m2 [facility] 02-01-2024 11:13-0400 Body weight 77.11 kg [facility] 02-01-2024 11:13-0400 Diastolic blood pressure 72 mm[Hg] [facility] 02-01-2024 11:13-0400 Heart rate 60 /min [facility] 02-01-2024 11:13-0400 Systolic blood pressure 134 mm[Hg] [facility] 11-26-2023 [id number] Body height 165.1 cm Miko Ohara MD Work Phone: [facility] 11-26-2023 14:08-0400 Body mass index (BMI) [Ratio] 27.96 kg/m2 Miko Ohara MD Work Phone: [facility] 11-26-2023 14:08-0400 Body temperature 97 [degF] Miko Ohara MD Work Phone: [facility] 11-26-2023 14:08-0400 Body weight 76.2 kg Miko Ohara MD Work Phone: [facility] 11-26-2023 09:56-0400 Body height 165.1 cm Mainor Post MD Work Phone: [facility] 11-26-2023 09:56-0400 Body mass index (BMI) [Ratio] 28.12 kg/m2 Mainor Post MD Work Phone: [facility] 11-26-2023 09:56-0400 Body weight 76.66 kg Mainor Post MD Work Phone: [facility] 11-26-2023 09:56-0400 Diastolic blood pressure 76 mm[Hg] Mainor Post MD Work Phone: [facility] 11-26-2023 09:56-0400 Heart rate 56 /min Mainor Post MD Work Phone: [facility] 11-26-2023 09:56-0400 Systolic blood pressure 124 mm[Hg] Mainor Post MD Work Phone: [facility] 10-28-2023 08:41-0400 Body height 165.1 cm [facility] 10-28-2023 08:41-0400 Body mass index (BMI) [Ratio] 27.9 kg/m2 [facility] 10-28-2023 08:41-0400 Body weight 76.2 kg [facility] 10-28-2023 08:41-0400 Diastolic blood pressure 68 mm[Hg] [facility] 10-28-2023 08:41-0400 Heart rate 58 /min [facility] 10-28-2023 08:41-0400 Systolic blood pressure 106 mm[Hg] [facility] 08-20-2023 14:38-0400 Body height 165.1 cm Divine Dougherty Work Phone: [facility] 08-20-2023 14:38-0400 Body mass index (BMI) [Ratio] 27.96 kg/m2 Divine Dougherty Work Phone: [facility] 08-20-2023 14:38-0400 Body weight 76.2 kg Divine Dougherty Work Phone: [facility] 07-23-2023 14:45-0400 Body height 165.1 cm Divine Dougherty Work Phone: [facility] 07-23-2023 14:45-0400 Body mass index (BMI) [Ratio] 27.96 kg/m2 Divine Dougherty Work Phone: [employer] [facility] 07-23-2023 14:45-0400 Body weight 76.2 kg Divine Dougherty Work Phone: [facility] 2023 15:34-0500 Body temperature 97.9 [degF] Miko Ohara MD Work Phone: [facility] 2023 15:34-0500 Diastolic blood pressure 53 mm[Hg] Miko Ohara MD Work Phone: [employer] [facility] 2023 15:34-0500 Heart rate 80 /min Miko Ohara MD Work Phone: [employer] [facility] 2023 15:34-0500 Respiratory rate 16 /min Miko Ohara MD Work Phone: [facility] 2023 15:34-0500 SaO2% (BldA) [Mass fraction] 98 % Miko Ohara MD Work Phone: [facility] 03-06-2024 15:34-0500 Systolic blood pressure 110 mm[Hg] Miko Ohara MD Work Phone: [facility] 07-07-2023 16:39-0500 Body height 165.1 cm Miko Ohara MD Work Phone: [facility] 07-07-2023 16:39-0500 Body mass index (BMI) [Ratio] 28.02 kg/m2 Miko Ohara MD Work Phone: [facility] 07-07-2023 16:39-0500 Body weight 76.39 kg Miko Ohara MD Work Phone: [employer] [facility] 06-18-2023 14:31-0500 Body height 165.1 cm Miko Ohara MD Work Phone: [facility] 06-18-2023 14:31-0500 Body mass index (BMI) [Ratio] 28.12 kg/m2 Miko Ohara MD Work Phone: [facility] 06-18-2023 14:31-0500 Body weight 76.66 kg Miko Ohara MD Work Phone: [employer] [facility] 06-02-2023 11:19-0500 Body height 165.1 cm Mundo Diaz MD Work Phone: [facility] 06-02-2023 11:19-0500 Body mass index (BMI) [Ratio] 28.12 kg/m2 Mundo Diaz MD Work Phone: [facility] 06-02-2023 11:19-0500 Body weight 76.66 kg Mundo Diaz MD Work Phone: [facility] 06-02-2023 11:19-0500 Diastolic blood pressure 68 mm[Hg] Mundo Diaz MD Work Phone: [facility] 06-02-2023 11:19-0500 Heart rate 62 /min Mundo Diaz MD Work Phone: [facility] 06-02-2023 11:19-0500 SaO2% (BldA) [Mass fraction] 99 % Mundo Diaz MD Work Phone: [employer] 06-02-2023 11:19-0500 Systolic blood pressure 106 mm[Hg] Mundo Diaz MD Work Phone: [employer] 05-14-2023 09:38-0500 Body height 165.1 cm Miko Ohara MD Work Phone: [employer] 05-14-2023 09:38-0500 Body mass index (BMI) [Ratio] 29.12 kg/m2 Miko Ohara MD Work Phone: [employer] 05-14-2023 09:38-0500 Body temperature 98.2 [degF] Miko Ohara MD Work Phone: [employer] 05-14-2023 09:38-0500 Body weight 79.38 kg Miko Ohara MD Work Phone: [employer] 10-30-2022 14:45-0400 Body height 165.1 cm Elliot Starks Other [employer] Other 10-30-2022 14:45-0400 Body mass index (BMI) [Ratio] 28.4 kg/m2 Elliot Starks Other [employer] Other 10-30-2022 14:45-0400 Body weight 77.43 kg Elliot Starks Other [employer] Other 10-30-2022 14:45-0400 Diastolic blood pressure 66 mm[Hg] Elliot Starks Other [employer] Other 10-30-2022 14:45-0400 Systolic blood pressure 123 mm[Hg] Elliot Starks Other [employer] Other 06-04-2022 11:30-0500 Body height 165.1 cm Elliot Starks Other [employer] Other 06-04-2022 11:30-0500 Body mass index (BMI) [Ratio] 28.29 kg/m2 Elliot Starks Other [employer] Other 06-04-2022 11:30-0500 Body weight 77.11 kg Elliot Starks Other [employer] Other 06-04-2022 11:30-0500 Diastolic blood pressure 64 mm[Hg] Elliot Starks Other [employer] Other 06-04-2022 11:30-0500 SaO2% (BldA) [Mass fraction] 99 % Elliot Starks Other [employer] Other 06-04-2022 11:30-0500 Systolic blood pressure 104 mm[Hg] Elliot Starks Other [employer] Other Encounters Encounter Date Encounter Type Care Provider Facility Start: 01-25-2025 ambulatory Maria E Osman Facility:[facility] Start: 12-29-2024 End: 12-29-2024 ambulatory Elliot Starks MD Work Phone: [facility] Work Phone: Start: 12-29-2024 End: 12-29-2024 Patient encounter procedure Elliot Starks MD -[facility] Work Phone: Start: 12-27-2024 End: 12-27-2024 Bamboo flowsheet Radha Espinal MD Work Phone: [facility] Start: 12-27-2024 End: 12-27-2024 Bamboo flowsheet Radha Espinal MD Work Phone: [facility] Start: 12-27-2024 End: 12-27-2024 Patient encounter procedure Radha Espinal MD Work Phone: [facility] Comment on above: Seborrheic keratosis , inflamed (Primary Dx); Inflamed skin tag; [facility] Start: 12-27-2024 End: 12-27-2024 ambulatory RADHA ESPINAL Not Available Start: 12-19-2024 Non-patient / Non-visit Ayanna Leslie CMA -[facility] Work Phone: Start: 12-19-2024 Non-patient / [facility] Work Phone: Start: 12-18-2024 Non-patient / [facility]visit [facility] Work Phone: Start: 12-18-2024 End: 12-19-2024 Emergency department patient visit ELLIOT STARKS Facility:[facility] Start: 12-05-2024 End: 12-05-2024 ambulatory Daisy Liz MD Facility:[facility] Start: 11-29-2024 End: 11-29-2024 ambulatory Elliot Starks MD Work Phone: [facility] Work Phone: Start: 11-29-2024 End: 11-29-2024 Patient encounter procedure Elliot Starks MD -[facility] Work Phone: Start: 11-24-2024 End: 11-29-2024 Refill Jack Smith INVENTORY TRANSCRIBER-MAINTENANCE OF WAY SUPERVISOR Work Phone: [facility] Comment on above: Med Refill Start: 11-09-2024 [facility] Start: 11-08-2024 ambulatory DIVINE LONDON [facility] Start: 11-08-2024 End: 11-08-2024 Office outpatient visit 15 minutes Radha Mart INVENTORY TRANSCRIBER-MAINTENANCE OF WAY SUPERVISOR Work Phone: [facility] Comment on above: Paroxysmal atrial fi brillation (CMS-HCC) (Primary Dx); Primary hypertension; Palpitations Start: 11-08-2024 End: 11-16-2024 ambulatory RADHA Mil [facility] Comment on above: Med Refill Start: 11-01-2024 End: 11-03-2024 Refill Divine London MEDINA Work Phone: [facility] Comment on above: Med Refill Start: 10-31-2024 End: 10-31-2024 ambulatory [facility] Start: 10-26-2024 End: 10-26-2024 ambulatory Alfreda MLobo Moraese Facility:[facility] Start: 10-26-2024 End: 10-26-2024 Patient encounter procedure Maria E Osman [facility] Start: 09-19-2024 End: 09-19-2024 ambulatory Alfreda MLobo Moraese Facility[facility] Start: 09-19-2024 End: 09-19-2024 Patient encounter procedure Alfreda MLobo Moraese [facility] Start: 09-12-2024 End: 09-12-2024 ambulatory Jean Pierre MARTE Facility[facility] Start: 09-12-2024 End: 09-12-2024 ambulatory Alfreda M. Lue Facility:[facility] Start: 09-12-2024 End: 09-12-2024 Patient encounter procedure Alfreda M. Lue [facility] Start: 08-22-2024 End: 08-22-2024 ambulatory Daisy [facility] Start: 08-07-2024 End: 08-10-2024 Refill Vinicio Causey PA-C Work Phone: [facility] Comment on above: Med Refill Start: 08-03-2024 End: 08-04-2024 Refill Rosangela Montague INVENTORY TRANSCRIBER-MAINTENANCE OF WAY SUPERVISOR Work Phone: [facility] Comment on above: Med Refill Start: 07-27-2024 End: 07-28-2024 Refill Sander Pollack RN [facility] Comment on above: Med Refill Start: 07-20-2024 End: 07-27-2024 Refill Miko Vasquez INVENTORY TRANSCRIBER-MAINTENANCE OF WAY SUPERVISOR Work Phone: [facility] Comment on above: Med Refill Start: 07-20-2024 ambulatory Alfreda Miller Facility:[facility] Start: 07-14-2024 End: 07-14-2024 Postop follow up visit related to original px Paula Barrera INVENTORY TRANSCRIBER-MAINTENANCE OF WAY SUPERVISOR Work Phone: [facility] Comment on above: Hx of total hip arth roplasty, right (Primary Dx) Start: 07-14-2024 End: 07-14-2024 Subsequent hospital visit by physician Paula Barrera APRN-MAINTENANCE OF WAY SUPERVISOR Work Phone: [facility] Start: 07-14-2024 ambulatory [facility] Start: 06-30-2024 End: 07-06-2024 Refill Michael Castanon INVENTORY TRANSCRIBER-MAINTENANCE OF WAY SUPERVISOR Work Phone: [facility] Comment on above: Med Refill Start: 06-22-2024 End: 07-26-2024 Pre-admission assessment Alfreda Miller [facility] Start: 06-22-2024 End: 06-22-2024 ambulatory Maria E Osman Facility:[facility] Start: 06-22-2024 End: 06-22-2024 Lab Drop off Maria E Osman [facility] Start: 06-22-2024 End: 06-22-2024 ambulatory Maria E Osman Facility:[facility] Start: 06-22-2024 End: 06-22-2024 Patient encounter procedure Maria E Osman [facility] Start: 06-21-2024 End: 06-21-2024 ambulatory [facility] Work Phone: Start: 06-21-2024 End: 06-21-2024 Patient encounter procedure [facility] Work Phone: Start: 05-11-2024 Non-patient / Non-visit [facility] Work Phone: Start: 05-09-2024 End: 05-09-2024 ambulatory [facility] Work Phone: Start: 05-09-2024 End: 05-09-2024 Patient encounter procedure [facility] Work Phone: Start: 04-30-2024 End: 04-30-2024 Patient encounter procedure [facility] Work Phone: Start: 04-04-2024 End: 04-04-2024 ambulatory Daisy Liz MD Facility:[facility] Start: 02-01-2024 End: 02-01-2024 ambulatory [facility] Work Phone: Start: 02-01-2024 End: 02-01-2024 Patient encounter procedure [facility] Work Phone: Start: 01-02-2024 End: 01-05-2024 Refill Rosangela Montague APRN-MAINTENANCE OF WAY SUPERVISOR [facility] Comment on above: Med Refill Start: 11-26-2023 End: 11-26-2023 Subsequent hospital visit by physician Miko Ohara MD Work Phone: [facility] Start: 11-26-2023 ambulatory MIKO OHARA [facility] Start: 11-26-2023 End: 11-26-2023 Office outpatient visit 15 minutes Miko Ohara MD Work Phone: [facility] Comment on above: Hx of total hip arth roplasty, right (Primary Dx) Paroxysmal atrial fi brillation (CMS-HCC) (Primary Dx); Unstable angina (CMS-HCC); SOB (shortness of breath) Start: 11-25-2023 End: 11-25-2023 Telephone encounter Medina Jaramillo MA [facility] Start: 10-28-2023 End: 10-28-2023 ambulatory [facility] Work Phone: Start: 10-28-2023 End: 10-28-2023 Patient encounter procedure [facility] Work Phone: Start: 10-19-2023 End: 10-26-2023 Refill Mike Craft MD Work Phone: [facility] Comment on above: Med Refill Start: 09-17-2023 Telephone encounter Matt [facility] Comment on above: Yearly Exam With Shane rodriguez Start: 08-20-2023 End: 08-20-2023 Subsequent hospital visit by physician Divine Dougherty Work Phone: [facility] Start: 08-20-2023 ambulatory DIVINE DOUGHERTY [facility] Start: 08-20-2023 End: 08-20-2023 Postop follow up visit related to original px Divine Dougherty Work Phone: [facility] Comment on above: Right hip pain (Prim hayden Dx) Start: 08-20-2023 ambulatory [facility] Start: 08-10-2023 End: 08-13-2023 Refill Divine London INVENTORY TRANSCRIBER-MAINTENANCE OF WAY SUPERVISOR Work Phone: [facility] Comment on above: Med Refill Start: 07-23-2023 End: 07-23-2023 Postop follow up visit related to original px Divine Dougherty Work Phone: [facility] Comment on above: Tear of gluteus mini mus tendon, right, initial encounter (Primary Dx) Start: 07-23-2023 End: 07-23-2023 Subsequent hospital visit by physician Divine Dougherty Work Phone: [facility] Start: 07-23-2023 ambulatory DIVINE DOUGHERTY [facility] Start: 07-17-2023 Refill Mike galloway MD Work Phone: [facility] Comment on above: Med Refill Start: 07-15-2023 Telephone encounter [facility] Start: 07-07-2023 End: 2023 Evaluation and management of inpatient Miko Ohara MD Work Phone: [facility] Comment on above: Status post revision of total hip Start: 07-07-2023 End: 2023 Patient encounter status Miko Ohara MD Work Phone: [facility] Start: 07-01-[address] [facility] Start: 07-01-2023 Preprocedural examin ation done Elliot Starks MD Work Phone: [facility] Start: 06-19-2023 Telephone encounter Jacqueline Sparrow RN [facility] Comment on above: Pre op clearance Start: 06-18-2023 End: 06-18-2023 Office outpatient visit 40 minutes Miko Ohara MD Work Phone: [facility] Comment on above: Right hip pain (Prim hayden Dx) Start: 06-02-2023 End: 06-02-2023 Office outpatient visit 25 minutes Mundo Diaz MD Work Phone: [facility] Comment on above: Paroxysmal atrial fi brillation (CMS-HCC) (Primary Dx); Primary hypertension; Chronic coronary artery disease Start: 05-14-2023 End: 05-14-2023 Office outpatient new 30 minutes Miko Ohara MD Work Phone: [facility] Comment on above: Pain in prosthetic j oint, initial encounter (Primary Dx); Primary osteoarthritis of right hip Start: 05-14-2023 End: 05-14-2023 Subsequent hospital visit by physician Miko Ohara MD Work Phone: [facility] Start: 03-30-2023 (Televisit) Televisit Elliot Dela Cruz [facility] Start: 03-30-2023 End: 03-30-2023 ambulatory Elliot Starks Other [employer] Other Start: 02-11-2023 End: 02-11-2023 Patient encounter procedure Alfreda Miller [facility] Start: 12-29-2022 End: 11-08-2024 Preoperative state Mundo Diaz MD [facility] Phone[facility] Start: 11-17-2022 End: 11-17-2022 ambulatory Elliot Starks Other [employer] Other Start: 11-17-2022 Telephone encounter Elliot Starks [facility] Start: 10-30-2022 End: 10-30-2022 ambulatory Elliot Starks Other [employer] Other Start: 10-30-2022 Office outpatient vi sit 15 minutes Elliot Starks [facility] Start: 10-29-2022 End: 10-29-2022 ambulatory Elliot Starks Other [employer] Other Start: 10-29-2022 Telephone encounter Elliot Starks [facility] Start: 10-27-2022 Nursing evaluation o f patient and report Elliot Starks [facility] Start: 10-27-2022 End: 10-27-2022 ambulatory Elliot Starks [employer] Other Start: 10-27-2022 End: 10-27-2022 Departed Referred MD Elliot Starks Work Phone: [facility] [place] Work Phone: Start: 09-11-2022 Telephone encounter Matt Duron Hematology/Oncology Comment on above: Orders Start: 08-11-2022 End: 08-11-2022 ambulatory Elliot Starks Other [employer] Other Start: 08-11-2022 Nursing evaluation o f patient and report Elliot Starks [facility] Start: 07-17-2022 (Televisit) Televisit Elliot Dela Cruz [facility] Start: 07-17-2022 End: 07-17-2022 ambulatory Elliot Starks Other [employer] Other Start: 06-23-2022 End: 06-23-2022 ambulatory Elliot Starks Other [employer] Other Start: 06-23-2022 Nursing evaluation o f patient and report Elliot Starks [facility] Start: 06-09-2022 End: 06-09-[address] ELLIOT STARKS Facility:[facility] Start: 06-06-2022 End: 06-06-2022 ambulatory Elliot Starks Other [employer] Other Start: 06-06-2022 Telephone encounter Elliot Starks [facility] Start: 06-04-2022 End: 06-04-2022 ambulatory Elliot Starks Other [employer] Other Start: 06-04-2022 Office outpatient vi sit 25 minutes Elliot Starks [facility] Start: 05-21-2022 End: 05-21-2022 ambulatory Elliot Starks Other [employer] Other Start: 05-21-2022 Telephone encounter Elliot Starks [facility] Start: 04-26-2022 End: 04-26-[address] ELLIOT STARKS Facility:[facility] Start: 04-14-2022 End: 04-14-[address] ELLIOT STARKS Facility:[facility] Start: 12-18-2021 End: 12-18-2021 ambulatory Melchor Goff [place] Facility:[facility] Start: 10-03-2021 Telephone encounter Andrew blcak MD Work Phone: Hematology/Oncology Comment on above: [...] w/le ast 12 lds w/i&r Radha Mart INVENTORY TRANSCRIBER-MAINTENANCE OF WAY SUPERVISOR Work Phone: Start: 11-08-2024 Follow-up visit Follow-up RADHA MART Start: 2023 Basic metabolic pane l calcium total Chance Mahoney MD Work Phone: Start: 2023 Complete blood count with white cell differential, automated Paula Barrera INVENTORY TRANSCRIBER-MAINTENANCE OF WAY SUPERVISOR Work Phone: Start: 07-07-2023 Cultyp nuc acid amp prb cult/isolate ea orgnism Chance Mahoney MD Work Phone: Start: 07-07-2023 Radiologic examinati on pelvis 1/2 views Paula Barrera INVENTORY TRANSCRIBER-MAINTENANCE OF WAY SUPERVISOR Work Phone: Start: 07-07-2023 Cell count miscellan [...] Author Start: 11-08-2025 Tobacco Screening Tobacco Screening [facility] Start: 01-02-2025 Influenza vaccination P [facility] Start: 12-27-2024 End: 12-27-2024 Patient encounter procedure 12/27/2024 10:00 AM EDT Office Visit [facility] [address] [place] [address] Radha Espinal MD [address] [place] [address] Arrived [facility] Comment on above: Arrived Start: 11-25-2024 Adult BMI Screening Adult BMI Screen ing [facility] Start: 11-25-2024 Tobacco Screening Tobacco Screening [facility] Start: 11-08-2024 End: 11-08-2024 Patient encounter procedure 11/08/2024 9:00 AM EDT Office Visit [facility] [address] [place] [address] Radha Mart, INVENTORY TRANSCRIBER-MAINTENANCE OF WAY SUPERVISOR [address] [place] [address] [facility] Start: 09-29-2024 Adult BMI Screening Adult BMI Screen ing [facility] Start: 09-29-2024 Screening for malign ant neoplasm of breast MAMMOGRAM SCREENING DISCUSSION [facility] Start: 08-11-2024 Adult BMI Screening Adult BMI Screen ing [facility] Start: 08-11-2024 End: 08-10-2025 CBC panel - Blood by Automated count CBC Lab Routine Paroxysmal atrial fibrillation (CMS-HCC) Benign hypertension Expected: 08/11/2024 (Approximate), Expires: 08/10/2025 [facility] Comment on above: Expected: 08/11/2024 (Approximate), Expires: 08/10/2025 Start: 08-11-2024 End: 08-10-2025 Comprehensive metabolic 2000 panel - Serum or Plasma CMP Lab Routine Paroxysmal atrial fibrillation (CMS-HCC) Benign hypertension Expected: 08/11/2024 (Approximate), Expires: 08/10/2025 [employer] Work Phone: Comment on above: Expected: 08/11/2024 (Approximate), Expires: 08/10/2025 Start: 08-11-2024 End: 08-10-2025 Magnesium [Mass/volume] in Serum or Plasma Magnesium Lab Routine Paroxysmal atrial fibrillation (CMS-HCC) Benign hypertension Expected: 08/11/2024 (Approximate), Expires: 08/10/2025 [facility] Comment on above: Expected: 08/11/2024 (Approximate), Expires: 08/10/2025 Start: 08-11-2024 Tobacco Screening Tobacco Screening [facility] Start: 08-08-2024 COVID-19 Vaccine () COVID-19 Vaccine () [facility] Start: 07-14-2024 Tobacco Screening Tobacco Screening [facility] Start: 07-14-2024 End: 07-14-2024 Patient encounter procedure 07/14/2024 11:20 AM EDT Office Visit [facility] [address] [place] [address] Miko Ohara MD [address] [place] [address] [facility] Start: 07-07-2024 Potassium [Moles/vol ume] in Serum or Plasma POTASSIUM [facility] Start: 06-02-2024 Adult BMI Screening Adult BMI Screen ing [facility] Start: 06-02-2024 Tobacco Screening Tobacco Screening [facility] Start: 02-16-2024 End: 02-16-2024 Patient encounter procedure 02/16/2024 11:00 AM EDT Office Visit [facility] [address] [place] [address] Sheridan Kaye MD [address] [place] [address] [facility] Start: 01-03-2024 COVID-19 Vaccine () COVID-19 Vaccine () [facility] Start: 01-03-2024 COVID-19 Vaccine ( season) COVID-19 Vaccine ( season) [facility] Start: 01-03-2024 Influenza vaccination [facility] Start: 11-26-2023 End: 11-26-2023 Patient encounter procedure [facility] Start: 10-09-2023 DIABETES SCREEN [facility]CREEN [facility] Start: 10-09-2023 Diabetes Screening Diabetes Screenin g [facility] Start: 08-20-2023 End: 08-20-2023 Patient encounter procedure 08/20/2023 2:30 PM EDT Office Visit [facility] [address] [place] [id number] Divine Dougherty [address] [place] [id number] [facility] Start: 08-12-2023 End: 08-12-2023 Patient encounter procedure 08/12/2023 8:00 AM EDT Office Visit [facility] [address] [place] [phone] Miko Vasquez, INVENTORY TRANSCRIBER-[facility] [address] [place] [address] [facility] Start: 07-23-2023 End: 07-23-2023 Patient encounter procedure 07/23/2023 2:30 PM EDT Office Visit [facility] [address] [place] [phone] Divine Dougherty [address] [place] [id number] [facility] Start: 07-07-2023 End: 07-07-2023 Evaluation and management of inpatient [facility] Comment on above: Tear of [...] 06/25/2023 10:00 AM EST Pre-Operative Nurse Assessment [facility] Pre Admission [address] [place] [id number] Pre-op testing (Primary Dx); Essential (primary) hypertension; Abnormal finding of blood chemistry, unspecified; Abnormal coagulation profile [facility] Comment on above: Pre-op testing (Prim hayden Dx); Essential (primary) hypertension; Abnormal finding of blood chemistry, unspecified; Abnormal coagulation profile Start: 06-13-2023 COVID-19 Vaccine ( season) COVID-19 Vaccine () [facility] Start: 05-28-2023 End: 05-28-2023 Patient encounter procedure 05/28/2023 11:00 AM EST Office Visit [facility] [address] [place] [address] Peter Gardiner, DO [address] [place] [address] [facility] Start: 05-14-2023 End: 05-14-2024 MR Hip - right WO contrast MRI HIP RIGHT WITHOUT CONTRAST Imaging Routine Pain in prosthetic joint, initial encounter Expected: 05/14/2023, Expires: 05/14/2024 [facility] Comment on above: Expected: 05/14/2023 , Expires: 05/14/2024 Start: 05-04-2023 Advance Directive Discussion Advance Directive Discussion [facility] Start: 05-04-2023 Behavioral Health Screening Behavioral Health Screening [facility] Start: 01-02-2023 Covid-19 Vaccine (3 - 2023-24 season) Covid-19 Vaccine ( season) [facility] Start: 01-02-2023 COVID-19 VACCINE ( season) COVID-19 VACCINE ( season) [facility] Start: 01-02-2023 Influenza vaccination INFLUENZA (Sea son Ended) [facility] Start: 10-27-2022 Bacteria identified in Urine by Culture [facility] Start: 05-04-2022 ADVANCE DIRECTIVE DISCUSSION ADVANCE DIRECTIVE DISCUSSION [facility] Start: 05-04-2022 DEPRESSION ASSESSMENT DEPRESSION ASS ESSMENT [facility] Start: 04-08-2022 Screening for malign ant neoplasm of colon Colonoscopy [facility] Start: 01-02-2022 Influenza vaccination INFLUENZA (Sea son Ended) [facility] Start: 10-07-2021 End: 12-07-2021 Cancer Ag 27-29 [Units/volume] in Serum or Plasma CA 27.29 BLOOD Lab Routine Malignant neoplasm of upper-outer quadrant of left breast in female, estrogen receptor positive (HCC) Expected: 10/07/2021, Expires: 12/07/2021 [facility] Work Phone: Comment on above: Expected: 10/07/2021 , Expires: 12/07/2021 Start: 10-07-2021 End: 12-07-2021 CBC W Auto Differential panel - Blood CBC + DIFF Lab Routine Malignant neoplasm of upper-outer quadrant of left breast in female, estrogen receptor positive (HCC) Expected: 10/07/2021, Expires: 12/07/2021 [facility] Work Phone: Comment on above: Expected: 10/07/2021 , Expires: 12/07/2021 Start: 10-07-2021 End: 12-07-2021 Comprehensive metabolic 2000 panel - Serum or Plasma COMP METABOLIC PANEL Lab Routine Malignant neoplasm of upper-outer quadrant of left breast in female, estrogen receptor positive (HCC) Expected: 10/07/2021, Expires: 12/07/2021 [facility] Work Phone: Comment on above: Expected: 10/07/2021 , Expires: 12/07/2021 Start: 09-25-2021 Mammography MAMMOGRAM [facility] Start: 05-04-2021 ADVANCE DIRECTIVE DISCUSSION ADVANCE DIRECTIVE DISCUSSION [facility] Start: 11-17-2020 COVID-19 VACCINE (3 - Booster for Pfizer series) COVID-19 VACCINE (3 - Booster for Pfizer series) [facility] Start: 10-06-2020 Adult depression screening assessment DEPRESSION SCREENING [facility] Start: 08-15-2020 COVID-19 VACCINE (3 - Booster for Pfizer series) COVID-19 VACCINE (3 - Booster for Pfizer series) [facility] Start: 01-05-2019 Pneumococcal Vaccine : 65+ (2 of 2 - PCV) Pneumococcal Vaccine: 65+ (2 of 2 - PCV) [facility] Start: 01-05-2019 PNEUMOCOCCAL: 65+ (2 - PCV) PNEUMOCOCCAL: 65+ (2 - PCV) [facility] Start: 07-07-2012 BONE DENSITY BONE DENSITY [facility] Start: 07-07-2012 Fall Risk Screening Fall Risk Screen ing [facility] Start: 07-07-2012 Screening for osteoporosis Bone Density Screening [facility] Start: 2007 RSV Vaccine (1 - 1-d ose 60+ series) RSV Vaccine (1 - 1-dose 60+ series) [facility] Start: 07-07-1997 Administration of varicella zoster vaccine Zoster (Shingles) Vaccine (1 of 2) [facility] Start: 07-07-1997 SHINGRIX VACCINE (1 of 2) SHINGRIX VACCINE (1 of 2) [facility] Start: 07-07-1997 Zoster vaccine hzv l david for subcutaneous use ZOSTER (SHINGLES) VACCINE (1 of 2) [facility] Start: 07-07-1992 COLOGUARD (FIT-DNA) COLOGUARD (FIT-D NA) [facility] Start: 07-07-1992 Colonoscopy COLONOSCOPY [facility] Start: 07-07-1992 COLORECTAL CANCER SCREENING COLORECTAL CANCER SCREENING [facility] Start: 07-07-[address] COLONOGRAPHY [facility] Start: 07-07-1992 FECAL OCCULT BLOOD FECAL OCCULT BLOO D [facility] Start: 07-07-1992 LIPID SCREEN LIPID SCREEN [facility] Start: 07-07-1992 Screening for malign ant neoplasm of colon COLORECTAL CANCER SCREENING DISCUSSION [facility] Start: 07-07-1992 SIGMOIDOSCOPY SIGMOIDOSCOPY [facility] Start: 1987 Lipid panel LIPID SCREENING [facility] Start: 1987 Screening for malign ant neoplasm of breast MAMMOGRAM SCREENING DISCUSSION [facility] Start: 07-07-1968 Screening for malign ant neoplasm of cervix CERVICAL CANCER SCREENING DISCUSSION [facility] Start: 07-07-1966 DTaP,Tdap and Td Vaccines (1 - Tdap) DTaP,Tdap and Td Vaccines (1 - Tdap) [facility] Start: 07-07-1966 Third diphtheria, tetanus and acellular pertussis (DTaP) vaccination TDAP (ADULT) [facility] Start: 07-07-1966 Urine microalbumin profile [facility] Start: 07-07-1965 Adult BMI Follow Up Plan Adult BMI F ollow Up Plan [facility] Start: 07-07-1965 HEPATITIS C SCREENING HEPATITIS C SC REENING [facility] Start: 1959 Depression Screening Depression Scre ening [facility] Start: 07-07-1953 PNEUMOCOCCAL: 65+ (1 - PCV) PNEUMOCOCCAL: 65+ (1 - PCV) [facility] Start: 1947 Hepatitis C screening HEPATITI S C VIRUS SCREENING [facility] Start: 1947 Medicare Annual Well ness Visit Medicare Annual Wellness Visit [facility] Start: 1947 Potassium [Moles/vol ume] in Serum or Plasma POTASSIUM [facility] Start: 1947 Screening for osteoporosis DEXA SCAN DISCUSSION [facility] Start: 1945 Tetanus vaccination TETANUS [facility] ANAEROBE CULTURE [facility] Comment on above: Release Upon Orderin g for 1 Occurrences starting 07/07/2023 Bacterial culture an d sensitivity CULTURE WOUND Microbiology Routine 07/07/2023 2:27 PM EST [facility] BODY FLUID CELL COUNT BODY FLUID CELL COUNT Fluids Routine Tear of rotator cuff of right hip, initial encounter 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, initial encounter Release Upon Ordering for 1 Occurrences starting 07/07/2023 [facility] Comment on above: Release Upon Orderin g for 1 Occurrences starting 07/07/2023 End: 08-04-2025 Comprehensive metabolic 2000 panel - Serum or Plasma Comprehensive metabolic panel Lab Routine Primary hypertension Coronary artery disease involving [place] coronary artery of [place] heart with unstable angina pectoris ([facility]) 1 Occurrences starting 08/04/2024 until 08/04/2025 [employer] Work Phone: Comment on above: 1 Occurrences starti ng 08/04/2024 until 08/04/2025 End: 10-16-2024 DBT Breast - bilateral screening SHANE SCREENING [facility] Radiology Routine Encounter for screening mammogram for malignant neoplasm of breast 1 Occurrences starting 09/17/2023 until 10/16/2024 [facility] Work Phone: Comment on above: 1 Occurrences starti ng 09/17/2023 until 10/16/2024 End: 07-07-2023 Fungus identified in Unspecified specimen by Culture [employer] Comment on above: Release Upon Orderin g for 1 Occurrences starting 07/07/2023 One Time for 1 Occur rences starting 07/07/2023 until 07/07/2023 End: 08-04-2025 Magnesium [Mass/volume] in Serum or Plasma Magnesium Lab Routine Primary hypertension Coronary artery disease involving [place] coronary artery of [place] heart with unstable angina pectoris ([facility]) 1 Occurrences starting 08/04/2024 until 08/04/2025 [employer] Comment on above: 1 Occurrences starti ng 08/04/2024 until 08/04/2025 End: 10-26-2022 SHANE SCREENING W YAW [facility]ANE SCREENING [facility] Radiology Routine Encounter for screening mammogram for malignant neoplasm of breast 1 Occurrences starting 09/26/2021 until 10/26/2022 [facility] Work Phone: Comment on above: 1 Occurrences starti ng 09/26/2021 until 10/26/2022 End: 10-11-2023 SHANE SCREENING W YAW SHANE SCREENING [facility] Radiology Routine Encounter for screening mammogram for malignant neoplasm of breast 1 Occurrences starting 09/11/2022 until 10/11/2023 [facility] Work Phone: Comment on above: 1 Occurrences starti ng 09/11/2022 until 10/11/2023 End: 07-07-2023 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 [employer] Comment on above: Release Upon Orderin g for 1 Occurrences starting 07/07/2023 One Time for 1 Occur rences starting 07/07/2023 until 07/07/2023 XR Pelvis and Hip - right Views XR HIP WITH PELVIS RIGHT Imaging Routine Primary osteoarthritis of right hip 05/14/2023 9:20 AM EST [employer] Work Phone: XR Pelvis and Hip - right Views XR HIP WITH PELVIS RIGHT Imaging Routine Tear of gluteus minimus tendon, right, initial encounter 07/23/2023 2:22 PM EDT [employer] [facility] XR Pelvis and Hip - right Views XR HIP WITH PELVIS RIGHT Imaging Routine Right hip pain 08/20/2023 3:17 PM EDT [employer] [facility] XR Pelvis and Hip - right Views XR HIP WITH PELVIS RIGHT Imaging Routine Hx of total hip arthroplasty, right 11/26/2023 1:53 PM EDT [employer] [facility] XR Pelvis and Hip - right Views XR HIP WITH PELVIS RIGHT Imaging Routine Hx of total hip arthroplasty, right 07/14/2024 1:07 PM EDT [facility] Immunizations Immunization Date Immunization Notes Care Provider Pablo wheat 02-08-2024 influenza virus vaccine, unspecified formulation Maria E Osman [facility] 02-10-2023 influenza virus vaccine, unspecified formulation Alfreda Miller [facility] 02-01-2022 influenza virus vaccine, unspecified formulation Alfreda Miller [facility] 08-13-2021 SARS-CoV-2 mRNA (wypruvmpqhg-ngmd-iotii se) vaccine Alfreda Lue [facility] 01-29-2021 SARS-CoV-2 (COVID-19 ) mRNA BNT-162b2 vax Alfredaana Miller [facility] Comment on above: Result Comment: 2022: [id number] 06-20-2020 COVID-19 vaccine, ag e 12+ yr (PFIZER-BIONTECH - [facility]) Mikaela Thompson RN Work Phone: [facility] 05-28-2020 SARS-CoV-2 (COVID-19 ) mRNA BNT-162b2 vax Alfreda Lue [facility] 05-18-2020 COVID-19 vaccine, ag e 12+ yr (PFIZER-BIONTECH - [facility]) Mikaela Thompson RN Work Phone: [facility] 01-27-2020 influenza virus vaccine, split virus (incl. purified surface antigen) Elliot Starks Other [employer] Other 01-27-2020 influenza virus vaccine, unspecified formulation Alfreda Lue [facility] 01-20-2019 influenza virus vaccine, unspecified formulation Alfreda Lue [facility] 01-20-2019 influenza, high dose seasonal, preservative-free Mikaela Thompson RN Work Phone: [facility] 03-09-2018 influenza virus vaccine, unspecified formulation Alfreda Lue [facility] 01-05-2018 influenza virus vaccine, split virus (incl. purified surface antigen) Elliot Starks Other [employer] Other 01-05-2018 influenza virus vaccine, unspecified formulation Alfreda Lue [facility] 01-05-2018 influenza, high dose seasonal, preservative-free Mikaela Thompson RN Work Phone: [facility] 01-05-2018 pneumococcal polysaccharide vaccine, 23 valent Mikaela Thompson RN Work Phone: [facility] 02-25-2017 influenza virus vaccine, unspecified formulation Alfreda Lue [facility] 02-17-2017 pneumococcal polysaccharide vaccine, 23 valent Alfreda Lue [facility] 02-05-2017 influenza virus vaccine, split virus (incl. purified surface antigen) Elliot Starks Other [employer] Other 02-05-2017 influenza virus vaccine, unspecified formulation Alfreda Lue [facility] 02-05-2017 pneumococcal conjuga te vaccine, 13 valent Alfreda Lue [facility] 02-01-2002 pneumococcal polysaccharide vaccine, 23 valent Elliot Starks Other [facility] Payers Date Payer Category Payer Private Health Insurance [id number] 2023 Medicare (Managed Care) MEDICARE [employer] PPO [id number] 2022 Self-pay 2021 Medicaid [id number] 2021 Medicare HMO [employer] MEDICARE ember [id number] 2014 Medicare AET[employer] MEDICARE A ETNA MEDICARE PPO [id number] 2014-Present [phone] [id number] [place] [phone] PPO [id number] 2014 Medicare [id number]. [id number] 1959 Medicare [id number] 1947 Unknown [id number] 2.16840.1.059451.3.579.2. 593 1947 Unknown [id number] 2.16.840.1.771798.3.579.2. 593 1947 Unknown [id number] 2.16840.1.197791.3.579.2. 593 1947 Unknown [id number] 2.16.840.1.485547.3.579.2. 718 1947 Unknown [id number] 2.16.840.1.242719.3.579.2. 727 1947 Unknown [id number] 2.16.840.1.155834.3.579.2. 727 1947 Unknown [id number] 2.16.840.1.771536.3.579.2. 727 1947 Unknown [id number] 2.16.840.1.862775.3.579.2. 983 1947 Unknown [id number] 2.16.840.1.315455.3.579.2. 983 1947 Unknown [id number] 2.16.840.1.998791.3.579.2. 983 1947 Unknown [id number] 2.16.840.1.957294.3.579.2. 983 1947 Unknown [id number] 2.16.840.1.081222.3.579.2. 983 1947 Unknown [id number] 2.16840.1.251543.3.579.2. 983 1947 Unknown [id number] 2.16840.1.154490.3.579.2. 983 1947 Unknown [id number] 2.840.1.937991.3.579.2. 983 1947 Unknown [id number] 2.840.1.706601.3.579.2. 727 1947 Unknown [id number] 2.840.1.887255.3.579.2. 727 1947 Unknown [id number] 2.16840.1.015517.3.579.2. 727 1947 Unknown [id number] 2.16840.1.513111.3.579.2. 727 1947 Unknown [id number] 2.16.840.1.972384.3.579.2. 727 1947 Unknown [id number] 2.16.840.1.494670.3.579.2. 1286 1947 Unknown [id number] 2.16.840.1.595481.3.579.2. 1286 1947 Unknown [id number] 2.16840.1.753672.3.579.2. 1286 1947 Unknown [id number] 2.16.840.1.268683.3.579.2. 196 1947 Unknown [id number] 2.16.840.1.697428.3.579.2. 196 1947 Unknown [id number] 2.16.840.1.094665.3.579.2. 196 1947 Unknown [id number] 2.16840.1.006608.3.579.2. 196 1947 Unknown [id number] 2.16.840.1.647730.3.579.2. 1259 Private Health Insurance [employer] [facility] [id number] Unknown Unknown [id number] 2..840.1.292657.3.579.2. 531 Social History Date Type Detail Facility Start: 12-03-2015 End: 04-30-2024 Tobacco smoking status NHIS Ex-smoker [facility] End: 12-05-1990 History of tobacco use Current smoker [facility] Start: 12-03-2015 End: 05-15-2020 Cigarettes smoked current (pack per day) - Reported 1 [facility] Start: 12-03-2015 End: 11-26-2023 Tobacco use and exposure Smokeless tobacco non-user [facility] Start: 10-08-2020 End: 11-08-2024 Alcohol intake Current drinker of alcohol (finding) [facility] Start: 1945 Sex Assigned At Not on file [facility] Start: 05-15-2020 End: 05-14-2023 Sex Assigned At [facility] End: 12-05-1990 History of tobacco use Cigarette Smoker [facility] Start: 1945 Sex Assigned At Female F [facility] Tobacco smoking status Never [facility] Start: 05-14-2023 Tobacco smoking stat us NHIS Never smoked tobacco [facility] Has the [employer] threatened to shut off services in your home in past 12Mo No [facility] (I/We) worried malathi er (my/our) food would run out before (I/we) got money to buy more. Never true [employer] [facility] Start: 03-19-2017 End: 06-19-2023 Alcohol Comment social [facility] Start: 12-07-2014 End: 05-09-2024 Sex Female (finding) [facility] Start: 03-31-2022 Tobacco Comment quit in 1989 [facility] Start: 05-09-2018 Gender identity Identifies as female gender (finding) [facility] Sexual Orientation [facility] Start: 09-26-2022 Alcohol Comment Alcohol: 1-2 d rinks occasionally. Caffeine: soda [facility] Medical Equipment Procedure Code Equipment Code Equipment Origin al Text Equipment Identifier Dates Anchors, 5.5 Non Punching - [id number] Start: 07-07-2023 Anchors, 5.5 Non Punching - [id number] Start: 07-07-2023 Functional Status Date Assessment Result Facility 09-19-2024 Functional Status N/A [facility] 06-22-2024 Functional Status N/A [facility] 07-07-2023 Are you deaf, or do you have serious difficulty hearing No 07/07/2023 4:30 PM Marcella Muñoz RN [facility] 07-07-2023 Are you blind, or do you have serious difficulty seeing, even when wearing glasses No 07/07/2023 4:30 PM Marcella Muñoz RN [facility] 07-07-2023 Do you have serious difficulty walking or climbing stairs No 07/07/2023 4:30 PM Marcella Muñoz RN [facility] 07-07-2023 Do you have difficul ty dressing or bathing No 07/07/2023 4:30 PM Marcella Muñoz, RICARDO [facility] 07-07-2023 Because of a physica l, mental, or emotional condition, do you have difficulty doing errands alone such as visiting a physician's office or shopping No 07/07/2023 4:30 PM Marcella Muñoz, RICARDO No [facility] 02-11-2023 Functional Status N/A [facility] Mental Status Date Assessment Result Facility 07-07-2023 Because of a physica l, mental, or emotional condition, do you have serious difficulty concentrating, remembering, or making decisions No 07/07/2023 4:30 PM Marcella Muñoz RN No [facility] Clinical Notes 09-26-2021 to 12-27-2024 Radha Espinal MD - 12/27/2024 10:00 AM EDTTelephone Encounter - Angelica Kelly CMA - 12/27/2024 1:36 AM EDTTelephone Encounter - Angelica Kelly CMA - 12/27/2024 1:36 AM EDT Note Date & Type Note Facility 12-27-2024 [...] Right Popliteal Fossa, Right Thigh - Anterior [place] and brown stuck on verrucous scaly papule [...] limited to risks of scarring, darker or quality lead pigmentary changes, recurrence, incomplete removal and infection. [...] pt schedule FBSE documented in this encounter [facility] 12-27-2024 Miscellaneous Notes Formattin g of this note might be different from the original. Theresa: 11/08/2024 documented in this encounter [facility] 12-27-2024 Telephone encount er Note Theresa: 11/08/2024 [facility] 12-18-2024 Note HNO ID: [id number] Author: HARSH BARCENAS RT(R) Service: ? Author [...] PATIENT PRESENTS WITH AN IMPLANTABLE OR ATTACHED FERRY ENGINEER: No RADIOLOGY DEPARTMENT: General X-ray: Exam(s) Completed: Chest X-Ray PERIPHERAL IV DATA: Not applicable SIGNED BY: FRANKY Bhatti) December 18, 2024 8:31 PM [facility] 11-29-2024 Evaluation note Diagnosis Onset Date Resolution Dysuria acute November 29 8:53am CKD stage 3a, GFR 45-59 ml/min acute December 29 10:23am Hypokalemia acute December 29, 2024 10:23am [facility] Work Phone: 1(556) 281-950507-24-2025 Miscellaneous Notes* Telephone Encounter - Leslie Negron RN - 11/24/2024 12:24 AM EDT Ov-11/08/24 Cmp-11/08/24 [facility] encounter Note* Telephone Encounter - Leslie Negron RN - 11/24/2024 12:24 AM EDT Ov-11/08/24 Cmp-11/08/24 [facility]2025 History of Present illness Narrative* Radha Mart, TABITHA-MAINTENANCE OF WAY SUPERVISOR - 11/08/2024 9:00 AM EDT Bettie Carly [...] tablet (20 mg total) before bedtime. vitamins A,C,C-oxwh-xpnofx (ICAPS AREDS) 4,296 mcg-226 mg-90 mg capsule [...] of HTN, paroxysmal atrial fibrillation S/p ablation 2019 on Eliquis, palpitations. TTE from 2021 shows [...] History: Diagnosis Date A-fib ([facility]) hx of Allergic Allergic to certain medications Arrhythmia 12/2016 ATRIAL FIBRILLATION Arthritis Back pain Chronic Nerve ablation 07/12/19 Breast cancer ([facility]) 11/14/2015 LEFT Cataract 02/2019 Removed 03/2019 COVID-19 [...] 09/28/2018 Performed by Amber Quiñonez MD at [facility] () APPENDECTOMY 1997 ARM SURGERY Both shoulders rotator cuff repair ARTHROSCOPY REPAIR ROTATOR CUFF SHOULDER Right 05/16/2020 Performed by Melchor Rivera DO at [facility] ARTHROSCOPY SHOULDER Right 05/16/2020 Performed by Melchor Rivera DO at [facility] BREAST BIOPSY Left 2016 2016 BREAST LUMPECTOMY Left 11/14/2015 WITH RADIATION BREAST SURGERY Left 2016 lumpectomy CATARACT EXTRACTION CHOLECYSTECTOMY 2000 COLONOSCOPY 2018 Will not need one again Coronary angiogram and left ventricular gram/pressure N/A 08/08/2021 Performed by Bertram Lal MD at [facility] CARDIAC CATH LABS EGD 2017 EYE [...] Needs: No Transportation Needs (07/07/2023) Received from [facility] PRAPARE - Transportation Lack of Transportation (Medical): No Lack of Transportation (Non-Medical): No Physical Activity: Not on file Stress: Not on file Social Connections: Not on file Interpersonal Safety: Not on file Housing Instability: Low Risk (07/07/2023) Received from [facility] Housing Stability Vital Sign Unable to [...] MD Referring Physician: Elliot Starks MD [address] [place] [address] MEDINA Landry 11/08/24 0926 documented in this [facility]2025 Instructions* Patient Instructions* MEDINA Landry - 11/08/2024 9:00 AM EDT BP and HR are well controlled. Continue cardiac medications. Recommend follow up in one year. Please call the office if you develop new or worsening symptoms and we will see you sooner. documented in this encounterKindred Healthcare2025 Miscellaneous Notes* Telephone Encounter - Kadie Adler RN - 11/08/2024 12:18 AM EDT OV 11/08/24 CMP, CBC 11/08/24 documented in this encounterKindred Healthcare2025 Telephone encounter Note* Telephone Encounter - Kadie Adler RN - 11/08/2024 12:18 AM EDT OV 11/08/24 CMP, CBC 11/08/24 [facility]07-01-2025 Miscellaneous Notes* Telephone Encounter - Gabrielle Moffett RN - 11/01/2024 12:27 AM EDT Overdue labs. Pt has been notified. Ov scheduled 11/08 documented in this [facility]07-01-2025 Telephone encounter Note* Telephone Encounter - Gabrielle Moffett RN - 11/01/2024 12:27 AM EDT Overdue labs. Pt has been notified. Ov scheduled 11/08 [facility]05-19-2025 Evaluation + Plan noteExtracted from: Title:[facility] HOPD Note Author:Alfreda Miller MD Date:09/19/24 Impression and Plan Assessment and Plan: Diagnosis: Vaginal atrophy (HIF95-VB N95.2, Discharge, Medical), Recurrent UTI (XKX72-DW N39.0, Discharge, Medical), Mixed incontinence (ZLP10-IQ N39.46, Discharge, Medical). 79-year-old female with a [...] 08:00:00 AM Scheduled Provider:Maria E Osman PA-C Location:[facility] Appointment Type:URO Office Visit [facility] 05-19-2025 Hospital Discharge instructions Follow Up Care 09/19/2024 08:36:00 With:Maria E Osman PA-C, URL Address: When:Within 3 Month(s) Comments:w/ PVR [facility] 05-19-2025 Hospital Discharge instructions Patient Education 09/19/2024 [...] with PVR With:Alfreda Miller Address:Unknown When: Unknown [facility] 05-19-2025 NoteHistory and Physical Patient: BETTIE BURNS [...] 1 month, then 2x a week afterwards, [facility]/pharmacy #[id number], 165, cm, 06/22/24 13:05:00 EST, Height/Length Dosing, 80.7, kg, 06/22/24 13:05:00 EST, Weight Dosing... Keflex 500 mg Cap: 500 mg = 1 cap(s), Oral, q12hr, X 7 day(s), # 14 cap(s), Refills(s) 0, Pharmacy:[facility]/pharmacy #[id number], 165, cm, 06/22/24 13:05:00 EST, Height/Length Dosing, 80.7, kg, 06/22/24 13:05:00 EST, Weight Dosing trospium 60 mg oral capsule, extended release: 60 mg = 1 cap(s), Oral, Bedtime, # 90 tab(s), Refills(s) 3, Pharmacy: [facility], 165, cm, 05/27/23 8:54:00 EST, Height/Length Dosing, 77.5, kg, 05/27/23 8:54:00 EST, Weight Dosing Documented Medications Documented Aleve: Refills(s) 0 BACLOFEN 10 MG TABLET: BACLOFEN 10 MG TABLET Eliquis 5 mg oral tablet: Refills(s) 0 Neuveria Vitamin OTC: Neuveria Vitamin OTC Potassium Chloride (Oli-Lfvj-Ejq 10) 10 mEq oral tablet, extended release: [...] list: All Problems Anticoagulated / SNOMED CT 456673483 / Confirmed Chronic atrial fibrillation / SNOMED CT 3684956838 / Confirmed Eczema / SNOMED CT 46640509 / Confirmed Former smoker / SNOMED CT 88141844 / Confirmed Frequent UTI / SNOMED CT 681012122 / Confirmed History of breast cancer / SNOMED CT 7652241759 / Confirmed History of malignant neoplasm of breast / SNOMED CT 2524365652 / Confirmed Hypertensive disorder / SNOMED CT 1952847311 / Confirmed Microscopic hematuria / SNOMED CT 846159547 / Confirmed Mixed incontinence / SNOMED CT 62274492 / Confirmed Rectocele / SNOMED CT 3433386652 / Confirmed Histories Past Medical History: No active or resolved past medical history items have been selected or recorded. Family History: Entire family history is negative. Procedure history: Cholecystectomy (30048710). Hip replacement (7865928379). Lumpectomy of left breast (6106352269). Rotator cuff (26514347). ROSA - Total abdominal hysterectomy (848913110). Appendectomy (707291303). Cataracts (1882991067). Cardiac ablation system (3040352048). Social History Social & Psychosocial Habits Tobacco [...] per clinic note, risks/benefits previously discussed and documentedCommunity Memorial HospitalComment on above:Result Comment: Electronically Signed By: Paul VILLEGAS, Alfreda Palacios\.br\Date and Time Signed: 09/19/24 08:[id number] NoteProgress Note-Physician Patient: BETTIE BURNS Age: 79 [...] 1 month, then 2x a week afterwards, [facility]/pharmacy #[id number], 165, cm, 06/22/24 13:05:00 EST, Height/Length Dosing, 80.7, kg, 06/22/24 13:05:00 EST, Weight Dosing... Keflex 500 mg Cap: 500 mg = 1 cap(s), Oral, q12hr, X 7 day(s), # 14 cap(s), Refills(s) 0, Pharmacy:[facility]/pharmacy #[id number], 165, cm, 06/22/24 13:05:00 EST, [...] Vitamin OTC: Neuveria Vitamin OTC Potassium Chloride (Dst-Ouoh-Dvw 10) 10 mEq oral tablet, extended release: [...] Plan Assessment and Plan: Diagnosis: Vaginal atrophy (EIT08-CP N95.2, Discharge, Medical), Recurrent UTI(JGA44-PW N39.0, Discharge, Medical), Mixed incontinence (HOD00-IQ N39.46, Discharge, Medical). 79-year-old female with a [...] up CT scan confirmed passage. Increase fluids recommendedCommunity Memorial HospitalComment on above:Result Comment: Electronically Signed By: Paul VILLEGAS, Alfreda Villavicencio.br\Date and Time Signed: 09/19/24 08:[id number] Note Patient Education Cystoscopy with Botox injection [...] you have a fever over 100 degrees. ???[facility]04-02-2025 Miscellaneous Notes* Telephone Encounter - Leslie Negron RN - 08/03/2024 12:21 AM EDT Ov-11/26/23 Cmp and mg -07/15/23 New cmp and mg order placed and letter sent 08/04/24 documented in this encounterKindred Healthcare04-02-2025 Telephone encounter Note* Telephone Encounter - Leslie Negron RN - 08/03/2024 12:21 AM EDT Ov-11/26/23 Cmp and mg -07/15/23 New cmp and mg order placed and letter sent 08/04/24 [facility]03-26-2025 Miscellaneous Notes* Telephone Encounter - Sander Pollack RN - 07/27/2024 1:57 PM EDT P/c from pt requesting refills to [facility]. OV 11/26/23 07/14/24 MAG, CMP, CBC EKG 08/12/23 documented in this [facility]03-26-2025 Telephone encounter Note* Telephone Encounter - Sander Pollack RN - 07/27/2024 1:57 PM EDT P/c from pt requesting refills to [facility]. OV 11/26/23 07/14/24 MAG, CMP, CBC EKG 08/12/23 [facility]03-13-2025 History of Present illness Narrative* Svitlana Hayden - 07/14/2024 2:00 PM EDT Ortho Nurse - Established Patient Intake Room#: 5 Date: 07/14/2024 1:15 PM Patient: Bettie Burns MR#: [id number] : 1945 Age: 79 y.o. 1yr R PAULA Pt stated she is doing fine, denies any pain at this time. Referring Physician: Self, Self Insurance: Payor: MEDICARE AETAccess MediQuip HMO OR PPO / Plan: MEDICARE AETNA [...] LUMPECTOMY FOOT SURGERY HEART CATHETERIZATION no stents TN ENDOMETRIAL CRYOABLATION W/US & ENDOMETRIAL CR REMOVAL [...] x 1 month, then 2x/week for maintainence, [facility]/pharmacy #[id number], 165, cm, 02/11/23 [...] x 1 month, then 2x/week for maintainence, [facility]/pharmacy #[id number], 165, cm, 02/11/23 [...] latex, morphine, oxycodone, penicillins, and tramadol. * MEDINA Richardson - 07/14/2024 2:00 PM EDT HPI: Patient [...] 07/14/2024 1:15 PM Patient: Bettie Burns MR#: [id number] : 1945 Age: 79 y.o. 1yr R [...] LUMPECTOMY FOOT SURGERY HEART CATHETERIZATION no stents TN ENDOMETRIAL CRYOABLATION W/US & ENDOMETRIAL CR REMOVAL [...] x 1 month, then 2x/week for maintainence, [facility]/pharmacy #[id number], 165, cm, 02/11/23 [...] x 1 month, then 2x/week for maintainence, [facility]/pharmacy #[id number], 165, cm, 02/11/23 [...] oxycodone, penicillins, and tramadol. documented in this encounterAdena [facility] Center02-27-2025 Miscellaneous Notes* Telephone Encounter - Mami Cifuentes RN - 06/30/2024 12:22 AM EST OV 11/26/2023 documented in this encounterKindred Healthcare02-27-2025 Telephone encounter Note* Telephone Encounter - Mami Cifuentes RN - 06/30/2024 12:22 AM EST OV 11/26/2023 [facility]02-19-2025 Hospital Discharge instructions Patient Education 06/22/2024 15:04:23 [...] Follow these instructions at home: Medicines Take qacz-rhz-gqhsqlt and prescription medicines only as told by [...] or the blood stops without treatment. Take kyic-qyh-trwxlpk and prescription medicines only as told by your health care provider. Drink enough fluid to keep your urine pale yellow. This information is not intended to replace advice given to you by your health care provider. Make sure you discuss any questions you have with your health care provider. Document Revised: 12/19/2020 Document Reviewed: 12/19/2020 [employer] Patient Education 2023 [employer]. 06/22/2024 15:04:17 Overactive Bladder, Adult Overactive Bladder, [...] your health care provider. General instructions Take dmev-omm-cyxszrd and prescription medicines only as told by [...] provider. Document Revised: 01/07/2021 Document Reviewed: 01/07/2021 [employer] Patient Education 2023 [employer]. Follow Up Care 06/22/2024 10:24:57 With:Paul VILLEGAS, PERLA Araujo, URO Address: When: Unknown Comments:F/U pending cystoscopy [facility] 02-19-2025 NotePatient Education Obstetrics and Gynecology Overactive [...] health care provider. General instructions ??? Take pqtg-ruq-awqflmp and prescription medicines only as told by [...] you drink, and whe (more content not included)...[facility]12-28-2024 Evaluation note* Diagnosis Onset Date Resolution Status Admit Date Acute bilateral otitis media acute April 30, 2024 9:54am [facility] Work Phone: 1(793) 492-927112-28-2024 Evaluation note* Diagnosis Onset Date Resolution Status Admit Date Acute bilateral otitis media acute April 30, 2024 9:54am Acute otitis media with effusion acute May 09 9:07am Insomnia acute May 09 9:07am Reaction, situational, acute , to stress acute May 09 9:07am [facility] Work Phone: [phone]) 647-271208-31-2024 Miscellaneous Notes* Telephone Encounter - Jacinta Neri [...] Low 56 Low CM documented in this encounterKindred Healthcare08-31-2024 Telephone encounter Note* Telephone Encounter - Jacinta [...] >59 ml/min/1.73sq.m 46 Low 56 Low CM [facility]07-25-2024 History of Present illness Narrative* Hal Fischer - 11/26/2023 2:00 PM EDT Ortho Nurse - Established Patient Intake Room#: 3 --- Patient presents today for 4 month follow-up of RTHA. Patient states that pain is 2/10today. Patient states that she is improved especially with PT, but is still limping more than she anticipated. Patient has been doing PT at [facility] and this helps, says next week is her last session. Patient states that she is due for nerve block in SI joint at [place] [facility] who she seesregularly, states that she needs approval from Dr. Ohara on this. Date: 11/26/2023 2:25 PM Patient: Bettie Burns MR#: [id number] : 1945 Age: 78 y.o. Referring Physician: [...] LUMPECTOMY FOOT SURGERY HEART CATHETERIZATION no stents TN ENDOMETRIAL CRYOABLATION W/US & ENDOMETRIAL CR REMOVAL [...] x 1 month, then 2x/week for maintainence, [facility]/pharmacy #[id number], 165, cm, 02/11/23 [...] x 1 month, then 2x/week for maintainence, [facility]/pharmacy #[id number], 165, cm, 02/11/23 [...] anticipated. Patient has been doing PT at [facility] and this helps, says next week is her last session. Patient states that she is due for nerve block in SI joint at [place] [facility] who she seesregularly, states that she needs approval from Dr. Ohara on this. Date: 11/26/2023 2:25 PM Patient: Bettie Burns MR#: [id number] : 1945 Age: 78 y.o. Referring Physician: [...] LUMPECTOMY FOOT SURGERY HEART CATHETERIZATION no stents TN ENDOMETRIAL CRYOABLATION W/US & ENDOMETRIAL CR REMOVAL [...] x 1 month, then 2x/week for maintainence, [facility]/pharmacy #[id number], 165, cm, 02/11/23 [...] x 1 month, then 2x/week for maintainence, [facility]/pharmacy #[id number], 165, cm, 02/11/23 [...] oxycodone, penicillins, and tramadol. documented in this encounterAdena Regional Medical Center07-25-2024 History of Present illness [...] Burns was seen in follow-up in the [place] office. Records are reviewed. She is a [...] History: Diagnosis Date A-fib ([facility]) hx of Arrhythmia 12/2016 ATRIAL FIBRILLATION Arthritis Breast cancer ([facility]) 11/14/2015 LEFT COVID-19 03/2020 [...] 09/28/2018 Performed by Amber Quiñonez MD at [facility] ([facility]) ARTHROSCOPY REPAIR ROTATOR CUFF SHOULDER Right 05/16/2020 Performed by Melchor Rivera DO at [facility] ARTHROSCOPY SHOULDER Right 05/16/2020 Performed by Melchor Rivera DO at [facility] BREAST BIOPSY Left 2016 BREAST LUMPECTOMY Left 11/14/2015 WITH RADIATION BREAST SURGERY Left 2013 lumpectomy CATARACT EXTRACTION CHOLECYSTECTOMY COLONOSCOPY Coronary angiogram and left ventricular gram/pressure N/A 08/08/2021 Performed by Bertram Lal MD at [facility] CARDIAC CATH LABS EYE SURGERY [...] Needs: No Transportation Needs (07/07/2023) Received from [facility], [facility] PRAPARE - Transportation Lack of Transportation (Medical): No Lack of Transportation (Non-Medical): No Physical Activity: Not on file Stress: Not on file Social Connections: Not on file Interpersonal Safety: Not on file Housing Instability: Low Risk (07/07/2023) Received from [facility], [facility] Housing Stability Vital Sign Unable to Pay for Housing in the Last Year: No Number of Places Lived in the Last Year: 1 In the last 12 months, was there a time when you did not have a steady place to sleep or slept in [place] (including now)?: No Review of Systems Review [...] MD Referring Physician: Elliot Starks MD [address] [place] [address] documented in this encounterKindred Healthcare07-24-2024 Miscellaneous Notes* Telephone Encounter - Medina Jaramillo MA - 11/25/2023 10:56 AM EDT Called patient to remind them to bring their most current copy of their medication list with them to their appt. Patient verbalizes understanding. documented in this encounterKindred Healthcare07-24-2024 Telephone encounter Note* Telephone Encounter - Medina Jaramillo MA - 11/25/2023 10:56 AM EDT Called patient to remind them to bring their most current copy of their medication list with them to their appt. Patient verbalizes understanding. [facility]06-17-2024 Miscellaneous Notes* Telephone Encounter - Jacinta Neri RN - 10/19/2023 9:19 AM EDT Last OV 08/25 CMP 07/25 documented in this encounterKindred Healthcare06-17-2024 Telephone encounter Note* Telephone Encounter - Jacinta Neri RN - 10/19/2023 9:19 AM EDT Last OV 08/25 CMP 07/25 [facility]05-16-2024 Telephone encounter Note* Telephone Encounter - Matt Adams RN - 09/17/2023 1:30 PM EDT Order faxed to [facility] Pt aware. Matt Adams RN [facility]05-16-2024 Miscellaneous Notes* Telephone Encounter - Matt Adams RN - 09/17/2023 1:30 PM EDT Order faxed to [facility] Julio Pt aware. Matt Adams RN * Telephone Encounter - Matt Adams RN - 09/17/2023 10:18 AM EDT Pt called to request yearly Mammogram order I have pended order as previously completed Pt requests to fax to Broderick [facility] [phone] BRM/HM: please review and sign if agreeable Matt Adams RN documented in this encounterSelect [facility]05-16-2024 Telephone encounter Note * Telephone Encounter - Matt Adams RN - 09/17/2023 10:18 AM EDT Pt called to request yearly Mammogram order I have pended order as previously completed Pt requests to fax to [facility] [place] [phone] BRM/HM: please review and sign if agreeable Matt Adams RN [facility]04-18-2024 History of Present illness Narrative* Evakimi Abrams - 08/20/2023 2:30 PM EDT Ortho [...] she is interested in Physcial Therapy through [facility]. Date: 08/20/2023 2:38 PM Patient: Bettie Burns MR#: [id number] : 1945 Age: 78 y.o. Referring Physician: [...] REPAIR Right 07/07/2023 Laterality: Right; Surgeon: Miko Ohaar MD; Location: [facility] REVISION ARTHROPLASTY HIP BOTH ACETABULAR & FEMORAL COMPONENTS Right 07/07/2023 Laterality: Right; Surgeon: Miko Ohara MD; Location: [facility] HIP REPLACEMENT 2021 ABLATION NERVE RADIOFREQUENCY PULSED 09/2018 for a-fib with [facility] APPENDECTOMY BREAST LUMPECTOMY FOOT SURGERY HEART CATHETERIZATION no stents TN ENDOMETRIAL CRYOABLATION REMOVAL BILIARY DUCT/GALLBLADDER CALCULI/DEBRIS PERCUTANEOUS [...] x 1 month, then 2x/week for maintainence, [facility]/pharmacy #[id number], 165, cm, 02/11/23 [...] All pertinant portions of the clinical support coordinator documentation was reviewed and I agree with [...] she is interested in Physcial Therapy through [facility]. Date: 08/20/2023 2:38 PM Patient: Bettie Burns MR#: [id number] : 1945 Age: 78 y.o. Referring Physician: [...] LUMPECTOMY FOOT SURGERY HEART CATHETERIZATION no stents TN ENDOMETRIAL CRYOABLATION REMOVAL BILIARY DUCT/GALLBLADDER CALCULI/DEBRIS PERCUTANEOUS [...] x 1 month, then 2x/week for maintainence, [facility]/pharmacy #[id number], 165, cm, 02/11/23 [...] oxycodone, penicillins, and tramadol. documented in this encounterAdena [facility] Medical Center04-08-2024 Miscellaneous Notes* Telephone Encounter - Ray Wills LPN - 08/10/2023 12:45 AM EDT Theresa 08/12/23 Cmp, mg 07/15/23 documented in this [facility]04-08-2024 Telephone encounter Note* Telephone Encounter - Ray Wills LPN - 08/10/2023 12:45 AM EDT Theresa 08/12/23 Cmp, mg 07/15/23 [id number] History of Present illness Narrative* Eva Abrams [...] 07/23/2023 2:45 PM Patient: Bettie Burns MR#: [id number] : 1945 Age: 78 y.o. Referring Physician: [...] LUMPECTOMY FOOT SURGERY HEART CATHETERIZATION no stents TN ENDOMETRIAL CRYOABLATION REMOVAL BILIARY DUCT/GALLBLADDER CALCULI/DEBRIS PERCUTANEOUS [...] x 1 month, then 2x/week for maintainence, [facility]/pharmacy #[id number], 165, cm, 02/11/23 [...] All pertinant portions of the clinical support coordinator documentation was reviewed. Divine Dougherty I have reviewed the findings of the clinical support coordinator and agree with their assessment. Divine Dougherty [...] 07/23/2023 2:45 PM Patient: Bettie Burns MR#: [id number] : 1945 Age: 78 y.o. Referring Physician: Divine Dougherty Insurance: Payor: MEDICARE AETNA HMO OR PPO / Plan: MEDICARE AETAccess MediQuip PPO / Product Type: *No Product type* [...] LUMPECTOMY FOOT SURGERY HEART CATHETERIZATION no stents TN ENDOMETRIAL CRYOABLATION REMOVAL BILIARY DUCT/GALLBLADDER CALCULI/DEBRIS PERCUTANEOUS [...] x 1 month, then 2x/week for maintainence, [facility]/pharmacy #[id number], 165, cm, 02/11/23 [...] oxycodone, penicillins, and tramadol. documented in this encounterAdena Regional Medical Center03-15-2024 Miscellaneous Notes* Telephone Encounter - Estela Bueno RN - 07/17/2023 1:28 AM EDT Dose confirmed with patient documented in this encounterKindred Healthcare03-15-2024 Telephone encounter Note* Telephone Encounter - Estela Bueno RN - 07/17/2023 1:28 AM EDT Dose confirmed with patient [facility]03-13-2024 Miscellaneous Notes* Telephone Encounter - Ashia Goncalves [...] she was willing. slm documented in this encounterKindred Healthcare03-13-2024 Telephone encounter Note* Telephone Encounter - Ashia [...] the ER and she was willing. slm [facility]03-06-2024 Miscellaneous Notes* Nursing Notes - Dolly Liao [...] 07, 2023 ATTENDING PHYSICIAN: Miko Ohara M.D. 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 PROCEDURE PERFORMED: Unlisted procedure of right hip and pelvis, dual-row suture anchor repair of 100% massive abductor tear of right hip, work equivalent similar to CPT 38902 Periarticular injection of right hip. ANESTHESIA: General. [...] it as a CPT similar to that, 07457. ATTENDING/ASSISTING PARTICIPATION: This operation could not have [...] OPERATIVE/PROCEDURE NOTE Bettie Burns 77 y.o. female [id number] SURGEON Surgeons and Role: * Miko Ohara MD - Primary TECHNICIAN AUTOMATIC MEDINA Richardson ANESTHESIOLOGIST BENCH WORKER HOLLOW HANDLE: Chance Ngo CRNA; PALAK Barrett SURGICAL STAFF Director Of Philanthropy: Kisha Karimi RN; Whit Govea, RN Nurse [...] Implant Name Type Inv. Item Serial No. Logistics Officer Lot No. LRB No. Used Action ANCHORS, 5.5 NON PUNCHING - [id number] ANCHORS, 5.5 NON PUNCHING HIST ARTHREX [id number] Right 1 Implanted ANCHORS, 5.5 NON PUNCHING - [id number] ANCHORS, 5.5 NON PUNCHING HIST ARTHREX [id number] Right 3 Implanted SPECIMENS ID Type Source Tests Collected by Time Destination A : Right hip incisional fluid (1-2) (Anaerobic & Aerobic) Fluid/Swab - Other SURGICAL WOUND ANAEROBE CULTURE Miko Ohara MD 07/07/2023 6388 B : Right hip fluid (cell count, defferential, & culture) Fluid, Unspecified FLUID, UNSPECIFIEDBODY FLUID CELL COUNT Miko Ohara MD 07/07/2023 1429 C : Right hip suture (1-3) (Anaerobic & Aerobic) Surgical Wound SURGICAL WOUND FUNGUS CULTURE, ACID FAST CULTURE, ANAEROBE CULTURE Miko Ohara MD 07/07/2023 1434 Paula Barrera APRN-AUSTEN July 07, 2023 3:28 PM * Nursing Notes - Chelsea Bledsoe RN - 07/07/2023 10:52 AM EST Unable to doppler right dorsalis pedis pulse. documented in this encounterAdena Regional Medical Center03-06-2024 Nurse Note* Nursing Notes [...] patient discharged home with daughter and . [facility]03-06-2024 Hospital Discharge instructions* Discharge Instructions* [...] at all times - Use a leg single fold machine operator to get in and out of [...] - 2023 12:01 PM EST Contact Office ([phone]) if: > Any falls or injuries > [...] incision or operative leg. documented in this [facility]03-06-2024 History of Present illness Narrative* Carmen Sebastian [...] LUMPECTOMY FOOT SURGERY HEART CATHETERIZATION no stents TN ENDOMETRIAL CRYOABLATION REMOVAL BILIARY DUCT/GALLBLADDER CALCULI/DEBRIS PERCUTANEOUS [...] 0 Equipment Available wheeled walker;elevated toilet seat;shower chair;designer and patternmaker Cognitive Status Examination Orientation Status (Cognition) oriented [...] to Sit, Rehab Eval Level of [place]: Supine/Sit stand-by assist Physical Assist/Nonphysical Assist: Supine/Sit 1 person assist Transfer Skill: Sit to Stand, Rehab Eval Level of [place]: Sit/Stand contact guard Physical Assist/Nonphysical Assist: Sit/Stand 1 person assist Weight-Bearing Restrictions: Sit/Stand toe touch weight-bearing Assistive Device for Transfer: Sit/Stand wheeled walker Upper Body Dressing Level of [place] independent Physical Assist/Nonphysical Assist set-up required Lower Body Dressing Level of [place] maximum assist (25% patients effort) Physical Assist/Nonphysical Assist 1 person assist Assistive Device designer and patternmaker General Therapy Interventions Planned Therapy Interventions (OT Eval) ADL retraining;balance training;transfer training Clinical Impression Co-evaluation/co-treatment performed? Yes, combination of simultaneous billable and individual billable skilled care was necessary due to medical complexity and functional deficits Patient Instruction/Education comments Pt instructed on LB dressing techniques donning underwear and shorts min assist in sitting and standing with training on use of designer and patternmaker to maintain hip precautions Rehab Potential (OT [...] hygiene training Therapist Information License # [id number] 1. Pt will complete LB dressing SBA [...] LUMPECTOMY FOOT SURGERY HEART CATHETERIZATION no stents TN ENDOMETRIAL CRYOABLATION REMOVAL BILIARY DUCT/GALLBLADDER CALCULI/DEBRIS PERCUTANEOUS [...] to Sit, Rehab Eval Level of [place]: Supine/Sit stand-by assist Physical Assist/Nonphysical Assist: Supine/Sit 1 person assist Transfer Skill: Sit To Stand, Rehab Eval [place] (Sit-Stand Transfers) contact guard Physical Assist/Nonphysical Assist: Sit/Stand 1 person assist Weight-Bearing Restrictions: Sit/Stand toe touch weight-bearing Assistive Device For Transfer: Sit/Stand 2 wheeled walker Gait Skills, PT Eval Level of [place]: Gait contact guard Physical Assist/Nonphysical Assist: Gait [...] educated on hip precautions, use of leg single fold machine operator and weight bearing status. Pteducated to [...] DISCUSSED WITH DR OHARA. documented in this [facility]03-06-2024 Hospital course Narrative* Chance Mahoney MD - [...] x 1 month, then 2x/week for maintainence, [facility]/pharmacy #[id number], 165, cm, 02/11/23 [...] Dept Phone 07/23/2023 2:30 PM Divine Leos [facility] Orthopedics [phone] documented in this encounter[facility] Surgery Postoperative evaluation and management note* Op Note - Miko Ohara MD - 2023 5:54 AM EST DATE OF PROCEDURE: July 07, 2023 ATTENDING PHYSICIAN: Miko Ohara M.D. 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 PROCEDURE PERFORMED: Unlisted procedure of right hip and pelvis, dual-row suture anchor repair of 100% massive abductor tear of right hip, work equivalent similar to CPT 21398 Periarticular injection of right hip. ANESTHESIA: General. [...] it as a CPT similar to that, 72863. ATTENDING/ASSISTING PARTICIPATION: This operation could not have been safely performed (without compromising the technical results or length of the procedure) without the assistance of a skilled certified surgical tech/first assistant. A certified surgical tech/first assistant was medically necessary for positioning, retraction and instrume ntation. [facility]03-06-2024 Nurse Note* Nursing Notes - Aidee Field RN - 2023 4:10 AM EST Assessment remains unchanged from previous. Neuro checks WN, abductor pillow in place. Call light within reach. [facility]03-06-2024 Nurse Note* Nursing Notes - Aidee Field RN - 2023 12:05 AM EST Assessment remains unchanged from previous. Neuro checks WNL, abductor pillow in place. Denies futher needs, call light within reach. [facility]03-05-2024 Consult note* Chance Mahoney MD - 07/07/2023 [...] LUMPECTOMY FOOT SURGERY HEART CATHETERIZATION no stents TN ENDOMETRIAL CRYOABLATION REMOVAL BILIARY DUCT/GALLBLADDER CALCULI/DEBRIS PERCUTANEOUS [...] in the morning GI prophylaxis. [facility]03-05-2024 Consult note* Chance Mahoney MD - [...] LUMPECTOMY FOOT SURGERY HEART CATHETERIZATION no stents TN ENDOMETRIAL CRYOABLATION REMOVAL BILIARY DUCT/GALLBLADDER CALCULI/DEBRIS PERCUTANEOUS [...] the morning GI prophylaxis. documented in this encounterAdena [facility]03-[facility] Nurse Note* Nursing Notes - Marcella Lozano RN - 07/07/2023 4:10 PM EST Arrived to room [facility] from PACU. Bedside report received from RICARDO Jacobo. Oriented to room and provided call light. Admission assessment, head to toe and post op vitals initiated. Fresh ice water and crackers provided. Family members accompanying patient, denies additional needs, call light in reach. FAITH intact flashing green. [facility]03[facility] Nurse Note* Sara Garcia RN - 07/07/2023 4:00 PM EST Patient transferred to [facility] via cart in stable condition. Report given to RICARDO Kim. Cart left in locked and lowest position with side rails up x2. Snack and call light given to patient. Monitorsand alarms on and attached to patient. * Edison Perez RN - 07/07/2023 3:30 PM EST Patient transported to PACU with [facility]. Reports given to Sara SILVA at 1530H. * Whit Govea RN - 07/07/2023 2:04 PM EST OR 3 room temp: 65.1F Humidity: 44% Fire score of: 2 documented in this encounterAdena [facility]03-[facility]24 Nurse Surgical operation note* Sara Garcia RN - 07/07/2023 4:00 PM EST Patient transferred to [facility] via cart in stable condition. Report given to RICARDO Kim. Cart left in locked and lowest position with side rails up x2. Snack and call light given to patient. Monitorsand alarms on and attached to patient. [facility]03-05-2024 Nurse Surgical operation note* Edison Perez RN - 07/07/2023 3:30 PM EST Patient transported to PACU with Dami[facility] TILLEY. Reports given to Sara SILVA at 1530H. [facility]03-05-2024 Surgery Postoperative evaluation and management note* Brief Op Note - MEDINA Richardson - 07/07/2023 3:28 PM EST POST OPERATIVE/PROCEDURE NOTE Bettie Burns 77 y.o. female [id number] SURGEON Surgeons and Role: * Miko Ohara MD - Primary TECHNICIAN AUTOMATIC MEDINA Richardson ANESTHESIOLOGIST BENCH WORKER HOLLOW HANDLE: Chance Ngo CRNA; PALAK Barrett SURGICAL STAFF Director Of Philanthropy: Kisha Karimi RN; Whit Govea RN Nurse [...] Implant Name Type Inv. Item Serial No. Logistics Officer Lot No. LRB No. Used Action ANCHORS, 5.5 NON PUNCHING - [id number] ANCHORS, 5.5 NON PUNCHING HIST ARTHREX [id number] Right 1 Implanted ANCHORS, 5.5 NON PUNCHING - [id number] ANCHORS, 5.5 NON PUNCHING HIST ARTHREX [id number] Right 3 Implanted SPECIMENS ID Type Source [...] Miko Ohara MD 07/07/2023 1434 Paula Barrera APRN-MAINTENANCE OF WAY SUPERVISOR July 07, 2023 3:28 PM [facility]03-05-2024 Nurse Surgical operation note* Whit Govea RN - 07/07/2023 2:04 PM EST OR 3 room temp: 65.1F Humidity: 44% Fire score of: 2 [facility]03-05-2024 Nurse Note* Nursing Notes - Chelsea Bledsoe RN - 07/07/2023 10:52 AM EST Unable to doppler right dorsalis pedis pulse. [facility] Itugo [phone] Miscellaneous Notes* Telephone Encounter - Jacqueline Sparrow [...] to Dr Ohara office. documented in this encounterKind[facility]02-[facility] Telephone encounter Note* Telephone Encounter - Jacqueline [...] on risk, holding Eliquis and Celebrex question. [facility]02-16-2024 Telephone encounter Note* Telephone Encounter - Mundo Diaz MD - 06/19/2023 12:01 PM EST Okay to proceed with surgery at moderate risk Can use Celebrex Hold Eliquis for 2 days resume after surgery [facility] Work Phone: [phone] Telephone encounter Note* Telephone Encounter - Jacqueline Sparrow RN - 06/19/2023 12:01 PM EST Clearance note faxed back to Dr Ohara office. [facility]02-15-2024 History of Present illness Narrative* Eva Abrams [...] year ago with Dr. Denver Hughes in [place]. Pt states she is looking for a second opinion due to having issues from this past surgery. Date: 06/18/2023 2:32 PM Patient: Bettie Burns MR#: [id number] : 1945 Age: 77 y.o. Referring Physician: [...] APPENDECTOMY BREAST LUMPECTOMY FOOT SURGERY HEART CATHETERIZATION TN ENDOMETRIAL CRYOABLATION REMOVAL BILIARY DUCT/GALLBLADDER CALCULI/DEBRIS PERCUTANEOUS [...] tendons as discussed in detail above. 3. Lvwhj-wa-samwotmo amount of fluid along the lateral aspect [...] nasal MRSA screening, scheduling an appointment for [facility] [place] and the potential surgical date, and reviewing [...] APPENDECTOMY BREAST LUMPECTOMY FOOT SURGERY HEART CATHETERIZATION TN ENDOMETRIAL CRYOABLATION REMOVAL BILIARY DUCT/GALLBLADDER CALCULI/DEBRIS PERCUTANEOUS W/ IMAGE REMOVAL CATARACT (PEM) ROTATOR CUFF REPAIR History reviewed. No pertinent family history. Social History Socioeconomic History Marital status: Tobacco Use Smoking status: Never Smokeless tobacco: Never Social Determinants of Health Food Insecurity: No Food Insecurity (06/02/2023) Received from [facility] Hunger Screening Within the past 12 months [...] Morphine Oxycodone Penicillins Tramadol documented in this [facility]01-30-2024 History of Present illness Narrative* Mundo Diaz [...] History: Diagnosis Date A-fib ([facility]) hx of Arrhythmia 12/2016 ATRIAL FIBRILLATION Arthritis Breast cancer ([facility]) 11/14/2015 LEFT COVID-19 03/2020 History of bleeding ulcers Hypertension Migraines Pneumonia d/t covid Prolonged emergence from general anesthesia Visual impairment glasses No data recorded No data recorded No data recorded Past Surgical History: Procedure Laterality Date ABLATION OF DYSRHYTHMIC FOCUS Right nerve ablation, L4 and L5 Afib ablation with SHANICE - CRYO, Rhythmia, ICE N/A 09/28/2018 Performed by Amber Quiñonez MD at [facility] (EP) ARTHROSCOPY REPAIR ROTATOR CUFF SHOULDER Right 05/16/2020 Performed by Melchor Rivera DO at [facility] ARTHROSCOPY SHOULDER Right 05/16/2020 Performed by Melchor Rivera DO at [facility] BREAST BIOPSY Left 2016 BREAST LUMPECTOMY Left 11/14/2015 WITH RADIATION BREAST SURGERY Left 2013 lumpectomy CATARACT EXTRACTION CHOLECYSTECTOMY COLONOSCOPY Coronary angiogram and left ventricular gram/pressure N/A 08/08/2021 Performed by Bertram Lal MD at [facility] CARDIAC CATH LABS EYE SURGERY [...] MD Referring Physician: Elliot Starks MD [address] [place] [address] documented in this encounterMercy Health – The [facility] HospitalEquity Endeavor Formerly [facility] [phone] History of Present illness Narrative* Divine Boudreaux - 05/14/2023 9:30 AM EST Ortho Nurse - Patient Intake Room#: 1 --- MANAGER RELIABILITY R Hip pain, had R THR in [...] 05/14/2023 9:44 AM Patient: Bettie Burns MR#: [id number] : 1945 Age: 77 y.o. Referring Physician: [...] []bracing Are you followed by a supervisor fishing? [x] [] Name: Dr. Waleska Zhu - [facility] Are you followed by pain management? [x] [] Name: Dr. Cedeno - Pain Mgmt @ [facility] Are you followed by any other specialists? [x] [] Name: Oncolgist - Dr. Choi [facility] Urologist - Dr. Christian Bourne Outpatient [...] abductor muscles as well as ESR/CRP and Venus and Chromium labs today. I will see [...] APPENDECTOMY BREAST LUMPECTOMY FOOT SURGERY HEART CATHETERIZATION TN ENDOMETRIAL CRYOABLATION REMOVAL BILIARY DUCT/GALLBLADDER CALCULI/DEBRIS PERCUTANEOUS [...] Morphine Oxycodone Penicillins Tramadol documented in this encounterAdena [facility] Center11-27-2023 Evaluation note* Encounter Date Diagnosis [...] verbalizes understanding and agrees with tx plan. [facility] Other 10-11-2023 Hospital Discharge instructions Patient Education [...] provider. Document Revised: 08/29/2021 Document Reviewed: 08/29/2021 [employer] Patient Education 2022 [employer]. Follow Up Care 11/06/2022 15:31:52 With:Paul VILLEGAS, Alfreda Palacios URBranden, URO Address: When:Within 3 Month(s) [facility]* Encounter Date Diagnosis Assessment Notes Treatment Notes Treatment Clinical Notes Nov, Dysuria (ICD-10 - R30.0) [facility] Other 06-29-2023 Evaluation note* Encounter Date Diagnosis Assessment Notes Treatment Notes Treatment Clinical Notes Oct, Frequent UTI (ICD-10 - N39.0) Pt requests Urology referral. Discussed also getting CT to move along process. Oct, Dyshidrotic eczema (ICD-10 - L30.1) Will treat with steroid cream prn [facility] Other 06-26-2023 Evaluation note* Encounter Date Diagnosis Assessment Notes Treatment Notes Treatment Clinical Notes Oct, Dysuria (ICD-10 - R30.0) [facility] Other 05-11-2023 Miscellaneous Notes* Telephone Encounter - Matt Adams RN - 09/11/2022 11:43 AM EDT Order faxed to [facility] and pt is aware. Matt Adams RN * Telephone Encounter - Matt Adams RN - 09/11/2022 9:51 AM EDT Pt called to request yearly Mammogram order I have pended order as previously completed Pt requests to fax to Nori Lema [phone] BRM/HM: please review and sign if agreeable Matt Adams RN documented in this encounter[facility] Evaluation note* Encounter Date Diagnosis Assessment Notes Treatment Notes Treatment Clinical Notes Aug, Dysuria (ICD-10 - R30.0) [facility] Other 03-16-2023 Evaluation note* Encounter Date Diagnosis [...] N32.81) chronic and improved on present med [facility] Other 02-20-2023 Evaluation note* Encounter Date Diagnosis Assessment Notes Treatment Notes Treatment Clinical Notes Jun, Dysuria (ICD-10 - R30.0) [facility] Other 02-03-2023 Evaluation note* Encounter Date Diagnosis Assessment Notes Treatment Notes Treatment Clinical Notes Jun, OAB (overactive bladder) (ICD-10 - N32.81) [facility] Other 02-01-2023 Evaluation note* Encounter Date Diagnosis Assessment Notes Treatment Notes Treatment Clinical Notes Jun, OAB (overactive bladder) (ICD-10 - N32.81) Patient request to try new medication reviewed side effect profile. Patient declines urology or PERSONAL LINES UNDERWRITER referral at this time. Jun, Essential hypertension (ICD-10 - I10) reviewed and updated medications she will follow-up with cardiology in Jun, Hypokalemia (ICD-10 - E87.6) Reviewed and updated medications. Discussed foods that are high in potassium Jun, Right lumbar pain (ICD-10 - M54.50) Follow-up with Dr. Rivera as scheduled in June. She does have limping with her gait. [facility] Other 05-26-2022 Miscellaneous Notes* Telephone Encounter - Andrew Choi MD - 09/26/2021 5:13 PM EDT Okay to change to screening mammogram. Order signed. ASIYA Ford * Telephone Encounter - Mikaela Thompson RN - 09/26/2021 2:33 PM EDT Pt scheduled for diagnostic mamm tomorrow @ [facility]. Hospital calls to ask if this could be changed to a screening mammogram since the pt is greater than 2 years from diagnosis? Mikaela Thompson RN documented in this encounterCushing ClinicEvaluation + Plan note Future Appointments Appointment Date:05/27/2023 08:45:00 AM Scheduled Provider:Paul VILLEGAS, Alfreda Palacios Location:[facility] Appointment Type:URO Office Visit [facility] evaluation + Plan note Future Appointments Appointment Date:07/22/2024 10:30:00 AM Scheduled Provider: Location:[facility] Appointment Type:Urology CALL PAT FT Appointment Date:07/25/2024 08:15:00 AM Scheduled Provider: Location:[facility] Appointment Type:Urology FT [facility] evaluation + Plan note Future Appointments Appointment Date:07/22/2024 10:30:00 AM Scheduled Provider: Location:[facility] Appointment Type:Urology CALL PAT FT Appointment Date:07/25/2024 08:15:00 AM Scheduled Provider: Location:[facility] Appointment Type:Urology FT Diagnostic Tests Pending * Urine Culture 06/22/24 [facility] Evaluation + Plan note Future Appointments Appointment Date:09/16/2024 11:30:00 AM Scheduled Provider: Location:[facility] Appointment Type:Urology CALL PAT FT Appointment Date:09/19/2024 08:00:00 AM Scheduled Provider: Location:[facility] Appointment Type:Urology FT [facility] evaluation + Plan note Future Appointments Appointment Date:01/25/2025 08:00:00 AM Scheduled Provider:Maria E Osman PA-C Location:[facility] Appointment Type:URO Office Visit [facility] evaluation note* Diagnosis Encounter for screening mammogram for malignant neoplasm of breast- Primary Other screening mammogram documented in this encounter [facility] note* Diagnosis Malignant neoplasm of upper-outer quadrant of left breast in female, estrogen receptor positive (HCC)- Primary documented in this encounter [facility] noteNo InformationNost. [facility] [employer] Other evaluation note* Diagnosis Encounter for screening mammogram for malignant neoplasm of breast- Primary Other screening mammogram documented in this encounter [facility] noteNo assessment information [facility] Work Phone: [facility] note* Diagnosis Pain in prosthetic joint, initial encounter- Primary Primary osteoarthritis of right hip Primary localized osteoarthrosis, pelvic region and thigh documented in this encounter [facility]* Diagnosis Right hip pain- Primary Pain in joint, pelvic region and thigh Pre-op testing- Primary Preoperative examination, unspecified Essential (primary) hypertension Unspecified essential hypertension Abnormal finding of blood chemistry, unspecified Abnormal coagulation profile Tear of rotator cuff of right hip, initial encounter 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, initial encounter documented in this encounter [facility] note* Diagnosis Status post revision of total hip- Primary Hip joint replacement by other means Pre-op testing Preoperative examination, unspecified Tear of rotator cuff of right hip, initial encounter 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, initial encounter Acute postoperative pain of right hip documented in this encounter [facility] note* Diagnosis Tear of gluteus minimus tendon, right, initial encounter- Primary documented in this encounter [facility] System[facility] note* Diagnosis Right hip pain- Primary Pain in joint, pelvic region and thigh documented in this encounter [facility] SystemEvaluation note* Diagnosis Onset Date Resolution Status Dysuria noneactive [facility] Work Phone: Evaluation note* Diagnosis Hx of total hip arthroplasty, right- Primary documented in this encounter [facility]Eval[facility]* Diagnosis Paroxysmal atrial fibrillation (CMS-HCC)- Primary Atrial fibrillation Primary hypertension Unspecified essential hypertension Chronic coronary artery disease Coronary atherosclerosis of unspecified type of vessel, [place] or graft documented in this encounter [facility]* Diagnosis Paroxysmal atrial fibrillation (CMS-HCC)- Primary Atrial fibrillation Unstable angina (CMS-HCC) Intermediate coronary syndrome SOB (shortness of breath) Shortness of breath documented in this encounter [facility]Evaluation note* Diagnosis Hx of total hip arthroplasty, right- Primary documented in this encounter [facility]* Diagnosis Paroxysmal atrial fibrillation (CMS-HCC) Atrial fibrillation documented in this encounter [facility] SystemEvaluation note* Diagnosis Paroxysmal atrial fibrillation (CMS-HCC) Atrial fibrillation [facility]* Diagnosis Primary hypertension- Primary Unspecified essential hypertension Coronary artery disease involving [place] coronary artery of [place] heart with unstable angina pectoris (CMS-HCC) documented in this encounter [facility] note* Diagnosis Paroxysmal atrial fibrillation (CMS-HCC)- Primary Atrial fibrillation Benign hypertension Essential hypertension, benign [facility]* Diagnosis Paroxysmal atrial fibrillation (CMS-HCC)- Primary Atrial fibrillation Primary hypertension Unspecified essential hypertension Palpitations documented in this encounter [facility] SystemEvaluation note* Diagnosis Paroxysmal atrial fibrillation (CMS-HCC) Atrial fibrillation documented in this encounter [facility] SystemEvaluation note* Diagnosis Onset Date Resolution Status Admit Date Dysuria acute November 29 8:53am [facility] Work Phone: Evaluation note* Diagnosis Seborrheic keratosis, inflamed- Primary Inflamed skin tag Milia Sebaceous cyst documented in this encounter [facility] HealthcareHistory general Narrative - Reported* Type Description [...] replacement 12/16/2021 Hospitalization History SEE SURGICAL HX [facility] Other Hospital course Narrative No data available for this section [facility] Hospital Discharge instructions* Attachments The following attachments cannot be sent through Care Everywhere. * [facility] AMB SMOKING CESSATION LINKS documented in this encounterUniversity [facility] SystemHospital Discharge instructions No data available for this section [facility] InstructionsNot on filedocumented in this encounter [facility] [...] this section [facility] reason for referral (narrative)* Diagnostic Procedure Only (Routine) - Pending Review Specialty Diagnoses / Procedures Referred By Juan t Referred To Contact [facility] Diagnoses Encounter for screening mammogram for malignant neoplasm of breast Procedures SHANE SCREENING W YAW SCREENING DIGITAL BREAST TOMOSYNTHESIS BI SCREENING MAMMOGRAPHY BI 2-VIEW BREAST INC Andrew Miguel MD [address] [place] [address] [place] [address] [facility] [address] [place] [phone] Referral ID Status Reason Start Date Expiration Date Visits Requested Visits Authorized [id number] Pending Review Auto-Generat ed Referral 09/26/2021 10/26/2022 1 1 [facility] for referral (narrative)* Diagnostic Procedure Only (Routine) - Pending Review Specialty Diagnoses / Procedures Referred By Contac t Referred To Contact [facility] Diagnoses Encounter for screening mammogram for malignant neoplasm of breast Procedures SHANE SCREENING W YAW SCREENING DIGITAL BREAST TOMOSYNTHESIS BI SCREENING MAMMOGRAPHY BI 2-VIEW BREAST INC Andrew Miguel MD [address] [place] [address] [place] [address] [facility] [address] [place] [phone] Referral ID Status Reason Start Date Expiration Date Visits Requested Visits Authorized [id number] Pending Review Auto-Generat ed Referral 09/11/2022 10/11/2023 1 1 [facility] [facility] [place] for referral (narrative)* (Routine) Specialty Diagnoses / Procedures Referred By Contac t Referred To Contact [facility] REV [address] [address] Referral ID Status Reason Start Date Expiration Date Visits Re quested Visits Authorized [facility] for referral (narrative)* Consultation (Routine) - Patient to Arrange Specialty Diagnoses / Procedures Referred By Contac t Referred To Contact Physical Therapy Diagnoses Right hip pain Divine Dougherty [address] [place] [phone] Referral ID Status Reason Start Date Expiration Date V isits Requested Visits Authorized [id number] Patient to Arrange 08/20/2023 09/13/2024 1 1 Scheduling Instructions . * Diagnostic X-Ray (Routine) - New Request Specialty Diagnoses / Procedures Referred By Contac t Referred To Contact Diagnoses Right hip pain Procedures XR HIP WITH PELVIS RIGHT Divine Dougherty [address] [place] [phone] Referral ID Status Reason Start Date Expiration Date V isits Requested Visits Authorized [id number] New Request 08/20/2023 09/13/2024 1 1 [facility] Diagnostic Procedure Only (Routine) - Pending Review Specialty Diagnoses / Procedures Referred By Juan wren Referred To Contact [facility] Diagnoses Encounter for screening mammogram for malignant neoplasm of breast Procedures SHANE SCREENING W YAW SCREENING DIGITAL BREAST TOMOSYNTHESIS BI SCREENING MAMMOGRAPHY BI 2-VIEW BREAST INC Andrew Miguel MD [address] [place] [address] [place] [address] [facility] [address] [place] [address] Referral ID Status Reason Start Date Expiration Date Visits Requested Visits Authorized [id number] Pending Review Auto-Generat ed Referral 09/17/2023 10/16/2024 1 1 [facility]No reason for referral information [facility] Work Phone: Reason for visit Narrative* Diagnostic X-Ray (Routine) - New Request Specialty Diagnoses / Procedures Referred By Juan wren Referred To Contact Diagnoses Hx of total hip arthroplasty, right Procedures XR HIP WITH PELVIS RIGHT Paula Barrera, TABITHA-MAINTENANCE OF WAY SUPERVISOR [address] [place] [address] Phone: tel: fax: Referral ID Status Reason Start Date Expiration Date V isits Requested Visits Authorized [id number] New Request 07/12/2024 08/06/2025 1 1 [employer] [facility] Summary Purpose Family History Relationship Condition Age at Onset Recorded Date/T nilam father Unknown mother Unknown Advance Directives Documents on File Type Date Recorded Patient Shale Planer Operator Expl anation Advance Directives/Living Will 06/25/2023 9:17 AM DURABLE POWER OF SENIOR MECHANICAL TECHNICIAN FOR HEALTHCARE 06/25/23 Advance Directives/Living Will 06/25/2023 [...] Documents on File Type Date Recorded Patient Shale Planer Operator Expl anation Living Will 05/21/2020 9:37 AM Durable Power of Silk Opener 05/21/2020 9:27 AM Durable Power of Silk Opener 05/16/2020 6:05 AM Living Will 05/16/2020 6:04 [...] Referral Specialty Diagnoses / Procedures Referred By Russac t Referred To Contact Diagnoses Hx of total hip arthroplasty, right Procedures XR HIP WITH PELVIS RIGHT Miko Ohara MD [address] [place] [id number] Referral ID Status Reason Start Date Expiration Date V isits Requested Visits Authorized [id number] New Request 11/16/2023 12/10/2024 1 1 Specialty Diagnoses / Procedures Referred By Contac t Referred To Contact Diagnoses Tear of gluteus minimus tendon, right, initial encounter Procedures XR HIP WITH PELVIS RIGHT Divine Dougherty [address] [place] [phone] Referral ID Status Reason Start Date Expiration Date V isits Requested Visits Authorized [id number] New Request 07/20/2023 08/13/2024 1 1 Specialty Diagnoses / Procedures Referred By Contac t Referred To Contact Diagnoses Pain in prosthetic joint, initial encounter Procedures MRI HIP RIGHT WITHOUT CONTRAST TN MRI LOWER EXTREM JT, W/O CONTRAST Miko Ohara MD [address] [place] [address] Referral ID Status Reason Start Date Expiration Date V isits Requested Visits Authorized [id number] New Request 05/14/2023 06/07/2024 1 1 Specialty Diagnoses / Procedures Referred By Contac t Referred To Contact Diagnoses Pain in prosthetic joint, initial encounter Procedures COBALT AND CHROMIUM,WB Miko Ohara MD [address] [place] [address] Referral ID Status Reason Start Date Expiration Date V isits Requested Visits Authorized [id number] New Request 05/14/2023 06/07/2024 1 1 Specialty Diagnoses / Procedures Referred By Juan wren Referred To Contact Diagnoses Primary osteoarthritis of right hip Procedures XR HIP WITH PELVIS RIGHT Miko Ohara MD [address] [place] [address] Referral ID Status Reason Start Date Expiration Date V isits Requested Visits Authorized [id number] New Request 05/06/2023 05/30/2024 1 1 Reason *FU 11/12 [place] office Diagnosis 1 Frequent UTI (N39.0) Referral Organization [facility] linmanuel Referring Provider First Name Elliot Referring Provider Last Name Raudel Referring Provider Specialty Family [facility] Referred Organization [facility] Referred Provider ALFREDA MILLER Referred Address [address] [place], [place],[address] Referred Provider Specialty Urology Referral Priority Routine [...] Date Dysuria November 29, 2024 8:53 am Chief Complaint Admit Date UA, burning, itching, pressure, frequenc y November 29, 2024 8:53am Amb Documentation December 19, 2024 10 :38am [facility] ER f/u December 29, 2024 10 :23am Reason for Visit Admit Date Dysuria November 29, 2024 8:53 am CKD stage 3a, GFR 45-59 ml/min December 292024 10:23am Hypokalemia December 29, 2024 10 :23am Additional Source Comments INFORMATION SOURCE (unrecogn ized section and content) DATE CREATED AUTHOR 10/28/2017 [facility] DATE CREATED AUTHOR AUTHOR'S ORGANIZ ATION 03/21/2020 [facility] DATE CREATED AUTHOR AUTHOR'S ORGANIZ ATION 09/13/[address] [facility] dical Specialist DATE CREATED AUTHOR AUTHOR'S ORGANIZ ATION 06/11/2022 [facility] DATE CREATED AUTHOR AUTHOR'S ORGANIZ ATION 11/18/2022 [facility] DATE CREATED AUTHOR AUTHOR'S ORGANIZ ATION 05/20/2023 [facility] DATE CREATED AUTHOR AUTHOR'S ORGANIZ ATION 09/19/2023 [facility] DATE CREATED AUTHOR AUTHOR'S ORGANIZ ATION 06/24/2024 [employer] [facility] DATE CREATED AUTHOR AUTHOR'S ORGANIZ ATION 06/26/2024 [facility] DATE CREATED AUTHOR AUTHOR'S ORGANIZ ATION 07/17/2024 [facility] DATE CREATED AUTHOR AUTHOR'S ORGANIZ ATION 09/13/2024 Thomas Beltran [facility] DATE CREATED AUTHOR AUTHOR'S ORGANIZ ATION 09/18/2024 [employer] [facility] DATE CREATED AUTHOR AUTHOR'S ORGANIZ ATION 10/28/2024 Thomas Beltran [facility] DATE CREATED AUTHOR AUTHOR'S ORGANIZ ATION 11/12/2024 [facility] DATE CREATED AUTHOR AUTHOR'S ORGANIZ ATION 12/16/2024 [facility] DATE CREATED AUTHOR AUTHOR'S ORGANIZ ATION 12/22/2024 [facility] DATE CREATED AUTHOR AUTHOR'S ORGANIZ ATION 12/28/2024 [facility] EPIC Source Comments (unrecognize d section and content) In the event this informatio n is protected by the Federal Confidentiality of Alcohol and Drug Abuse Patient Records regulations: The Federal rules restrict any use of the information to criminally investigate or prosecute any alcohol or drug abuse patient.[facility] Hospital[facility] the event this information is protected by the Federal Confidentiality of Alcohol and Drug Abuse Patient Records regulations: The Federal rules restrict any use of the information to criminally investigate or prosecute any alcohol or drug abuse patient.[facility] HospitalIn the event this information is protected by the Federal Confidentiality of Alcohol and Drug Abuse Patient Records regulations: The Federal rules restrict any use of the information to criminally investigate or prosecute any alcohol or drug abuse patient.[facility] HospitalIn the event this information is protected by the Federal Confidentiality of Alcohol and Drug Abuse Patient Records regulations: The Federal rules restrict any use of the information to criminally investigate or prosecute any alcohol or drug abuse patient.[facility] Reason for Visit (unrecogniz ed section and content) Reason Comments Radiology Mammogram Reason Comments Lab Orders Reason Comments Orders Specialty Diagnoses / Procedures Referred By Juan t Referred To Contact Diagnoses Primary osteoarthritis of right hip Procedures XR HIP WITH PELVIS RIGHT Miko Ohara MD [address] [place] [address] Referral ID Status Reason Start Date Expiration Date V isits Requested Visits Authorized [id number] New Request 05/06/2023 05/30/2024 1 1 Reason [...] right hip prosthesis, initial encounter [T84.090A] Procedures TN PELVIS/HIP JOINT SURGERY UNLISTED TN REVISE TOTAL HIP REPLACEMENT GLUTEUS MEDIUS TENDON REPAIR REVISION ARTHROPLASTY HIP BOTH ACETABULAR & FEMORAL COMPONENTS Miko Ohara MD [address] [place] [address] Referral ID Status Reason Start Date Expiration Date Visits Re quested Visits Authorized [id number] 06/19/2023 1 1 Reason Comments Post Op Visit Specialty Diagnoses / Procedures Referred By Juan t Referred To Contact Diagnoses Tear of gluteus minimus tendon, right, initial encounter Procedures XR HIP WITH PELVIS RIGHT Divine Dougherty [address] [place] [address] Referral ID Status Reason Start Date Expiration Date V isits Requested Visits Authorized [id number] New Request 07/20/2023 08/13/2024 1 1 Reason Comments Follow-up Specialty Diagnoses / Procedures Referred By Contac t Referred To Contact Diagnoses Right hip pain Procedures XR HIP WITH PELVIS RIGHT Divine Dougherty [address] [place] [address] Referral ID Status Reason Start Date Expiration Date V isits Requested Visits Authorized [id number] New Request 08/20/2023 09/13/2024 1 1 Reason Comments Yearly Exam With Mammogram Reason Comments Pain Specialty Diagnoses / Procedures Referred By Contac t Referred To Contact Diagnoses Hx of total hip arthroplasty, right Procedures XR HIP WITH PELVIS RIGHT Miko Ohara MD [address] [place] [address] Referral ID Status Reason Start Date Expiration Date V isits Requested Visits Authorized [id number] New Request 11/16/2023 12/10/2024 1 1 Reason [...] Care Teams (unrecognized sec tion and content) X Ray Developing Machine Operator Relationship Specialty Start Date End Date Elliot Starks MD [address] [place] [address] PCP - General Family Practice 11/26/15 X Ray Developing Machine Operator Relationship Specialty Start Date End Date Elliot Starks MD [address] [place] [address] PCP - General Family Practice 11/26/15 X Ray Developing Machine Operator Relationship Specialty Start Date End Date Elliot Starks MD [address] [place] [address] PCP - General Family Medicine 11/26/15 Team Status: Inactive Member Role Status Dates Elliot Starks MD Attending Provider Active X Ray Developing Machine Operator Relationship Specialty Start Date End Date Elliot Starks MD [address] [place] [address] [place] [address] PCP - General Family Medicine 05/11/23 X Ray Developing Machine Operator Relationship Specialty Start Date End Date Elliot Starks MD [address] [place] [address] [place] [address] PCP - General Family Medicine 05/11/23 X Ray Developing Machine Operator Relationship Specialty Start Date End Date Elliot Starks MD [address] [place] [address] [place] [address] PCP - General Family Medicine 05/11/23 X Ray Developing Machine Operator Relationship Specialty Start Date End Date Elliot Starks MD [address] [place] [address] [place] [address] PCP - General Family Medicine 05/11/23 X Ray Developing Machine Operator Relationship Specialty Start Date End Date Elliot Starks MD [address] [place] [address] [place] [address] PCP - General Family Medicine 05/11/23 X Ray Developing Machine Operator Relationship Specialty Start Date End Date Elliot Starks MD [address] [place] [address] [place] [address] PCP - General Family Medicine 05/11/23 X Ray Developing Machine Operator Relationship Specialty Start Date End Date Elliot Starks MD [address] [place] [address] [place] [address] PCP - General Family Medicine 05/11/23 X Ray Developing Machine Operator Relationship Specialty Start Date End Date Elliot Starks MD [address] [place] [address] [place] [address] PCP - General Family Medicine 05/11/23 X Ray Developing Machine Operator Relationship Specialty Start Date End Date Elliot Starks MD [address] [place], [place] [id number] PCP - General Family Medicine 11/26/15 Team [...] May 09, 2024 End: May 09, 2024 X Ray Developing Machine Operator Relationship Specialty Start Date End Date Elliot Starks MD [address] [place], [place] [id number] PCP - General 03/17/17 X Ray Developing Machine Operator Relationship Specialty Start Date End Date Elliot Starks MD [address] [place], [place] [id number] PCP - General 07/15/23 X Ray Developing Machine Operator Relationship Specialty Start Date End Date Elliot Starks MD [address] [place] [address] [id number] PCP - General 03/17/17 X Ray Developing Machine Operator Relationship Specialty Start Date End Date Elliot Starks MD [address] [place] [address] [id number] PCP - General 03/17/17 X Ray Developing Machine Operator Relationship Specialty [place] [address] [place] [address], [place] [address] PCP - General 07/15/23 X Ray Developing Machine Operator Relationship Specialty Start Date End Date Elliot Starks MD [address] [place] [address], [place] [address] PCP - General 07/15/23 X Ray Developing Machine Operator Relationship Specialty Start Date End Date Elliot Starks MD [address] [place] [address] PCP - General 07/15/23 Team Status: Active Member Role Status Dates Elliot Starks MD Primary Care Provide r, Attending Provider Active Start: May 11, 2024 Team Status: Inactive Member Role Status Dates Elliot Starks MD Primary Care Provider Active Start: June 21, 2024 End: June 21, 2024 Chinedu Farley DO Attending Provider Active Sta rt: June 21, 2024 End: June 21, 2024 X Ray Developing Machine Operator Relationship Specialty Start Date End Date Elliot Starks MD [address] [place] [address], [place] [address] PCP - General Family Medicine 05/11/23 X Ray Developing Machine Operator Relationship Specialty [place] [address] [place] [address], [place] [address] PCP - General Family Medicine 05/11/23 X Ray Developing Machine Operator Relationship Specialty Start Date End Date Elliot Starks MD [address] [place] [address], [place] [address] PCP - General 07/15/23 X Ray Developing Machine Operator Relationship Specialty Start Date End Date Elliot Starks MD [address] [place] [address] PCP - General 07/15/23 X Ray Developing Machine Operator Relationship Specialty Start Date End Date Elliot Starks MD [address] [place] [address] PCP - General 07/15/23 X Ray Developing Machine Operator Relationship Specialty Start Date End Date Elliot Starks MD [address] [place] [address] PCP - General 07/15/23 Team Status: Inactive Member Role Status Dates Elliot Starks MD Primary Care Provider Active Start: November 29, 2024 End: November 29, 2024 Elliot Starks MD Attending Provider Active St art: November 29, 2024 End: November 29, 2024 X Ray Developing Machine Operator Relationship Specialty Start Date End Date Elliot Starks MD PCP - General Family Medicine 09/26/22 X Ray Developing Machine Operator Relationship Specialty Start Date End Date Elliot Starks MD PCP - General Family Medicine 09/26/22 Team Status: Active Member Role Status Dates Elliot Starks MD Primary Care Provider Active Start: December 18, 2024 Govind Snow DO Attending Provider Active Sta rt: December 18, 2024 Team Status: Active Member Role Status Dates Elliot Starks MD Primary Care Provider Active Start: December 19, 2024 Govind Snow DO Attending Provider Active Sta rt: December 19, 2024 Team Status: Active Member Role Status Dates Elliot Starks MD Primary Care Provider Active Start: December 19, 2024 Ayanna Saini CMA Attending Provider Active Start: December 19, 2024 Team Status: Inactive Member Role Status Dates Elliot Starks MD Primary Care Provider Active Start: December 29, 2024 End: December 29, 2024 Elliot Starks MD Attending Provider Active St art: December 29, 2024 End: December 29, 2024 Goals (unrecognized section and content) [...] Field, RICARDO) 0607 (Given - Provider: Aidee Field, RICARDO)1511 (Given - Provider: Dolly Liao RN)1845 (Canceled [...] at 1530, 24 hours post op, Post-op/Post-Proc 151 (Given - Provid er: Dolly Liao RN) Docusate (COLACE) capsule 100 mg 100 mg, Oral, 2 TIMES DAILY, First dose on Thu07/07/23 at 1700, Until Discontinued, Post-op/Post-Proc 1817 (Given - Provider: Marcella Lozano RN) 09 (Given - Provider: Dolly Liao RN)1700 (Canceled [...] RN)1514 ($$New Bag$$ - Provider: Damián Saenz APRN-BENCH WORKER HOLLOW HANDLE)1647 (Stopped - Provider: Aidee Field RN) Sodium [...] 2 g, Intravenous, Administer over 15 Minutes, SUPERVISOR SHOP TO PROCEDURE, 1 dose, Starting on Thu07/07/23 at 1003, Until Thu07/07/23 at 1409, Other, Pre-operative antibiotic, Pre-op/Pre-Proc 1354 (Given - Provider: Melchor Holcomb, INVENTORY TRANSCRIBER-METHODIST [facility]) HYDROmorphone (DILAUDID) injection 0.5 mg 0.5 [...] BE BASED ON THE PRIMARY CLINICAL RECORDS. [employer] provides no warranty or guarantee of the accuracy or completeness of information in this document.
--- NOTE | 2025-01-04 07:57 | PM.CN ---
Consult Note: HPI Data of Consult Patient: known to practice within the last 3 years Requesting Physician: Larissa Turner NP Primary Care Provider: Marine Glass MD Consult Narrative Reason for consult: right low back pain Narrative: Bettie Burns a 79 year old female presents for evaluation of chronic low back and SIJ pain. has failed to benefit from > 6 weeks of PT/HEP, heat, ice, tylenol, cannot take NSAIds on apixaban. denies falls or injury. recently underwent right L4-5 L5-S1 facet RFA with 95% improvement per pt. pain 1-2/10 with minimal increased pain. cc:: CC: Larissa Turner NP Review of Systems ROS Musculoskeletal Reports: back pain PFSH PFSH Medical History Neck pain ?M54.2 - Cervicalgia (ICD-10) Upper back pain ?M54.9 - Dorsalgia, unspecified (ICD-10) Low back pain ?M54.50 - Low back pain, unspecified (ICD-10) Osteoarthritis ?M19.90 - Unspecified osteoarthritis, unspecified site (ICD-10) H/O malignant neoplasm of breast ?Z85.3 - Personal history of malignant neoplasm of breast (ICD-10) Hearing deficit ?H91.90 - Unspecified hearing loss, unspecified ear (ICD-10) Former smoker ?Z87.891 - Personal history of nicotine dependence (ICD-10) Hypertension ?I10 - Essential (primary) hypertension (ICD-10) Atrial fibrillation ?I48.91 - Unspecified atrial fibrillation (ICD-10) Cataract ?H26.9 - Unspecified cataract (ICD-10) Surgical History Status post hip surgery ?Z98.890 - Other specified postprocedural states (ICD-10) H/O total hip arthroplasty ?Z96.649 - Presence of unspecified artificial hip joint (ICD-10) H/O cardiac catheterization ?Z98.890 - Other specified postprocedural states (ICD-10) History of cholecystectomy ?Z90.49 - Acquired absence of other specified parts of digestive tract (ICD-10) H/O: hysterectomy ?Z90.710 - Acquired absence of both cervix and uterus (ICD-10) H/O foot surgery ?Z98.890 - Other specified postprocedural states (ICD-10) H/O eye surgery ?Z98.890 - Other specified postprocedural states (ICD-10) H/O shoulder surgery ?Z98.890 - Other specified postprocedural states (ICD-10) H/O breast surgery ?Z98.890 - Other specified postprocedural states (ICD-10) Social History Smoking status: Never smoker Meds Home Medications and Allergies Home Medications ?Medication ?Instructions ?Recorded ?Confirmed ?Type apixaban 5 mg tablet (Eliquis) 5 mg PO BID 10/28/22 12/05/24 History atenolol 50 mg tablet 75 mg PO DAILY 10/28/22 12/05/24 History hydrochlorothiazide 25 mg tablet 25 mg PO DAILY 10/28/22 12/05/24 History lisinopril 20 mg tablet 20 mg PO DAILY 10/28/22 12/05/24 History neuveria vitamin DAILY 10/28/22 History trospium 20 mg tablet 20 mg PO Q12H 04/02/23 12/05/24 History aspirin 500 mg tablet (Mckenna 500 mg PO DAILY PRN pain 11/04/23 12/05/24 History Advanced) cyclosporine 0.05 % eye drops in a drp ophthalmic (eye) 11/04/23 History dropperette omeprazole 40 mg capsule,delayed 40 mg PO DAILY 11/04/23 12/05/24 History release vit C 250 mg-vit E 90 mg-zinc 40 1 tab PO BID 11/04/23 12/05/24 History mg-copper 1 [id number] capsule (PreserVision AREDS-2) flecainide 50 mg tablet mg 12/14/23 History potassium chloride 10 mEq meq PO 12/14/23 History tablet,extended release methylprednisolone 4 mg tablets in 4 mg PO DAILY #21 ea 10/26/24 10/31/24 Rx a dose pack (Medrol (Ryan)) magnesium 200 mg tablet 200 mg PO DAILY 10/31/24 12/05/24 History methocarbamol 500 mg tablet 1,000 mg PO BID PRN spasms 11/17/24 12/05/24 History Allergies Allergy/AdvReac Type Severity Reaction Status Date / Time acetaminophen (From Vicodin) Allergy Severe itching Verified 12/05/24 07:22 hydrocodone (From Vicodin) Allergy Severe itching Verified 12/05/24 07:22 codeine Allergy Unknown Hives Verified 12/05/24 07:22 levofloxacin (From Levaquin) Allergy Unknown uticaria Verified 12/05/24 07:22 morphine Allergy Unknown uticaria Verified 12/05/24 07:22 Penicillins Allergy Unknown uticaria Verified 12/05/24 07:22 tramadol Allergy Unknown uticaria Verified 12/05/24 07:22 cyclobenzaprine Allergy Rash Verified 12/05/24 07:22 Exam Constitutional Documenting provider has reviewed patient's vital signs: yes Common normals: no apparent distress, oriented x3, healthy appearing, alert and well nourished General appearance: cooperative HENMT Common normals: normocephalic, hearing grossly normal bilaterally and moist oral mucous membranes Head and scalp: normocephalic Eye Common normals: PERRL Pupil: PERRL Neck & C-Spine Common normals: full ROM General: normal visual inspection Chest Common normals: inspection of chest normal Respiratory Common normals: normal respiratory effort, no retractions and no use of accessory muscles Back & Pelvis Lumbar spine/lower back: ROM limited; no pain with ROM and no lumbar spinal tenderness Sacroiliac joints: SI joint(s) abnormal Other: negative facet loading and tenderness mild tenderness over bilateral PSIS Extremity Common normals: normal to inspection and full ROM Neuro Common normals: oriented x3 Sensorium/orientation: alert Psych Common normals: mental status grossly normal, thought process normal, cooperative, affect normal, speech normal and activity/motor behavior normal Speech: normal speech Thought process: normal thought process Results Additional Findings Additional findings: If on a controlled substance or opioids, I have checked an [place] report on this patient and there are no aberrancies noted in the prescribing history.??If on a controlled substance or opioid a drug screen was completed and reviewed within the last year, and if there has not been a drug screen completed we ordered one today to monitor higher risk, state monitored pain medication use. As part of providing excellent, safe, comprehensive care, the following was completed at our patient's visit: 1. A medication reconciliation and review to ensure accurate knowledge of current/active medications, including asking our patients to inform us about any [id number] medications or herbal remedies/nutritional supplements/alternative remedies. 2. A review to specifically ensure our patients have had annual screening for screening for depression, screening for tobacco use, and screening for unhealthy alcohol use. For concerning screenings had a discussion with the patient, provided patient education, and recommended follow-up with primary care provider when appropriate. If patient noted with a risk of falling, they received education on strength, gait, and balance training to prevent future risk of falling. Portions of this note may have been carried over from the previous visit and updated as appropriate. Please note this office utilizes paper charting in addition to the electronic medical record. A list of current medications, vitals, and PMH is available there as the clinical staff outside of myself do not have access to [employer] charting during the clinic day operations. As part of providing quality comprehensive care the current medications, vitals, and PMH were reviewed in the paper chart. Assessment and Plan Assessment and Plan (1) Lumbar spondylosis: Assessment and Plan: 12/05/24 right L4-5 L5-S1 facet RFA >80% improvement ongoing (2) Sacroiliitis: Plan pain well controlled at this time, pt to call if pain worsens prior to next visit. f/u 6 months, sooner if needed
== END 2025-01-04 07:38 | disposition home or self-care (01) ==
LOC: PM 07:37
PROVIDERS: PCP Family Medicine; Visit Provider Nurse Practitioner
DX: M47.816 Spondylosis without myelopathy or radiculopathy, lumbar region (principal); M46.1 Sacroiliitis, not elsewhere classified
CPT/HCPCS: G0463

== ENCOUNTER 2025-01-29 14:32 | Emergency (ER) | payer MEDICARE, SELFPAY ==
--- OUTSIDE RECORDS SUMMARY | 2025-01-25 09:16 | XMS_ITS ---
Author Name Auto Generated Organization OHIP Care Team Providers Care Proof Inspector Name Role Phone RADHA DODGE Attending Unavailable Agusto VILLEGAS, Daisy Dietz Attending Unavailable Agusto VILLEGAS, Daisy Dietz Attending Unavailable Agusto VILLEGAS, Andrius Dietz Attending Unavailable Agusto VILLEGAS, Andsara Dietz Attending Unavailable Alfreda Miller Attending Unavailable AleishaeAlfreda MLobo Attending Unavailable JacquiMaria E Attending Unavailable Lue Alfreda MLobo Referring Unavailable JacquiMaria E Attending Unavailable JacquiMaria E Attending Unavailable Lue, Alfreda M. Admitting Unavailable Lue, Alfreda MLobo Attending Unavailable Lue, Alfreda MLobo Referring Unavailable JcaquiMaria E Admitting Unavailable Maria E Osman Attending Unavailable Maria E Osman Admitting Unavailable Maria E Osman Attending Unavailable Maria E Osman Admitting Unavailable Maria E Osman Attending Unavailable Jean Pierre MARTE Admitting Unavailable Jean Pierre MARTE Attending Unavailable GOVIND SNOW Attending Unavailable ELLIOT STARKS Primary Care Unavailable PAULA FITZPATRICK Referring Unavailable ELLIOT STARKS Primary Care Unavailable PAULA FITZPATRICK Attending Unavailable ELLIOT STARKS Primary Care Unavailable SELF, SELF Referring Unavailable PAULA FITZPATRICK Attending Unavailable RADHA OSBORNE Attending Unavailable ELLIOT STARKS Referring Unavailable ELLIOT STARKS Primary Care Unavailable SURYA LUZ Referring Unavailable ELLIOT STARKS Primary Care Unavailable NISSA OVALLES Referring Unavailable ELLIOT STARKS Primary Care Unavailable PROBLEMS DATE TYPE CONDITION / CODE ATTENDING STATUS [facility] 12/18/2024 Active Near syncope / R55(ICD-10) [facility] 12/18/2024 Active ACE (acute kidne y injury) / N17.9(ICD-10) [facility] 12/18/2024 Active Hypokalemia / E87.6(ICD-10) [facility] 12/18/2024 Active Dehydration / E86.0(ICD-10) [facility] 11/08/2024 Unknown 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 / I25.110(ICD-10) NA [facility] 08/16/2021 Unknown Palpitations / R00.2(ICD-10) INDIARADHA [facility] 06/30/2018 Unknown Paroxysmal atria l fibrillation / I48.0(ICD-10) INDIAMALVINRADHA Mil [facility] 10/06/2017 Unknown Essential (prima ry) hypertension / I10(ICD-10) MALVIN OSBORNEILY Mil [facility] 11/08/2024 Unknown Follow-up / FREETEXT(AOF) RADHA OSBORNE [facility] 07/14/2024 Admitting Diagnosis Presence of right artificial hip joint / Z96.641(ICD-10) PAULA FITZPATRICK [facility] PROCEDURES No Procedure Records Found RESULTS PATIENT EDUCATION Observed: 01/25/2025 11:49 AM Status: C Source: [facility] Patient Education Obstetrics and Gynecology Overactive Bladder, [...] health care provider. General instructions ??? Take bqvb-pus-cotafvh and prescription medicines only as told by [...] your health care provider monitor your condition. ??? Keep all follow-up visits. This is important. Contact a health care provider if: ??? You have a fever or chills. ??? Your symptoms do not get better with treatment. ??? Your pain and discomfort get worse. ??? You have more frequent urges to urinate. Get help right away if: ??? You are not able to control your bladder. Summary ??? Overactive bladder refers to a condition in which a person has a sudden and frequent need to urinate. ??? Several conditions may lead to an overactive bladder. ??? Treatment for overactive bladder depends on the cause and severity of your condition. ??? Making lifestyle changes, doing Kegel exercises, keeping a log, and taking medicines can help with this condition. This information is not intended to replace advice given to you by your health care provider. Make sure you discuss any questions you have with your health care provider. Document Revised: 01/07/2021 Document Reviewed: 01/07/2021 [employer] Patient Education ? 2023 Bug[employer].Urology Urinary Incontinence Urinary incontinence refers to a condition in which a person is unable to control where and when to pass urine. A person with this condition will urinate involuntarily. This means that the person urinates when he or she does not mean to. What are the causes? This condition may be caused by: ??? Medicines. ??? Infections. ??? Constipation. ??? Overactive bladder muscles. ??? Weak bladder muscles. ??? Weak pelvic floor muscles. These muscles provide support for the bladder, intestine, and, in women, the uterus. ??? Enlarged prostate in men. The prostate is a gland near the bladder. When it gets too big, it can pinch the urethra. With the urethra blocked, the bladder can weaken and lose the ability to empty properly. ??? Surgery. ??? Emotional factors, such as anxiety, stress, or post-traumatic stress disorder (PTSD). ??? Spinal cord injury, nerve injury, or other neurological conditions. ??? Pelvic organ prolapse. This happens in women when organs move out of place and into the vagina. This movement can prevent the bladder and urethra from working properly. What increases the risk? The following factors may make you more likely to develop this condition: ??? Age. The older you are, the higher the risk. ??? Obesity. ??? Being physically inactive. ??? and childbirth. ??? Menopause. ??? Diseases that affect the nerves or spinal cord. ??? Long-term, or chronic, coughing. This can increase pressure on the bladder and pelvic floor muscles. What are the signs or symptoms? Symptoms may vary depending on the type of urinary incontinence you have. They include: ??? A sudden urge to urinate, and passing urine involuntarily before you can get to a bathroom (urge incontinence). ??? Suddenly passing urine when doing activities that force urine to pass, such as coughing, laughing, exercising, or sneezing (stress incontinence). ??? Needing to urinate often but urinating only a small amount, or constantly dribbling urine (overflow incontinence). ??? Urinating because you cannot get to the bathroom in time due to a physical disability, such as arthritis or injury, or due to a communication or thinking problem, such as Alzheimer's disease (functional incontinence). How is this diagnosed? This condition may be diagnosed based on: ??? Your medical history. ??? A physical exam. ??? Tests, such as: ? Urine tests. ? X-rays of your kidney and bladder. ? Ultrasound. ? CT scan. ? Cystoscopy. In this procedure, a health care provider inserts a tube with a light and camera (cystoscope) through the urethra and into the bladder to check for problems. ? Urodynamic testing. These tests assess how well the bladder, urethra, and sphincter can store and release urine. There are different types of urodynamic tests, and they vary depending on what the test is measuring. To help diagnose your condition, your health care provider may recommend that you keep a log of when you urinate and how much you urinate. How is this treated? Treatment for this condition depends on the type of incontinence that you have and its cause. Treatment may include: ??? Lifestyle changes, such as: ? Quitting smoking. ? Maintaining a healthy weight. ? Staying active. Try to get 150 minutes of moderate-intensity exercise every week. Ask your health care provider which activities are safe for you. ? Eating a healthy diet. ? Avoid high-fat foods, like fried foods. ? Avoid refined carbohydrates like white bread and white rice. ? Limit how much alcohol and caffeine you drink. ? Increase your fiber intake. Healthy sources of fiber include beans, whole grains, and fresh fruits and vegetables. ??? Behavioral changes, such as: ? Pelvic floor muscle exercises. ? Bladder training, such as lengthening the amount of time between bathroom breaks, or using the bathroom at regular intervals. ? Using techniques to suppress bladder urges. This can include distraction techniques or controlled breathing exercises. ??? Medicines, such as: ? Medicines to relax the bladder muscles and prevent bladder spasms. ? Medicines to help slow or prevent the growth of a man's prostate. ? Botox injections. These can help relax the bladder muscles. ??? Treatments, such as: ? Using pulses of electricity to help change bladder reflexes (electrical nerve stimulation). ? For women, using a pediatric medical assistant to prevent urine leaks. This is a small, tampon-like, disposable device that is inserted into the urethra. ? Injecting collagen or carbon beads (bulking agents) into the urinary sphincter. These can help thicken tissue and close the bladder opening. ? Surgery. Follow these instructions at home: Lifestyle ??? Limit alcohol and caffeine. These can fill your bladder quickly and irritate it. ??? Keep yourself clean to help prevent odors and skin damage. Ask your health care provider about special skin creams and cleansers that can protect the skin from urine. ??? Consider wearing pads or adult diapers. Make sure to change them regularly, and always change them right after experiencing incontinence. General instructions ??? Take uidg-uhr-yqqhiyh and prescription medicines only as told by your health care provider. ??? Use the bathroom about every 3?4 hours, even if you do not feel the need to urinate. Try to empty your bladder completely every time. After urinating, wait a minute. Then try to urinate again. ??? Make sure you are in a relaxed position while urinating. ??? If your incontinence is caused by nerve problems, keep a log of the medicines you take and the times you go to the bathroom. ??? Keep all follow-up visits. This is important. Where to find more information ??? National Media of Diabetes and Digestive and Kidney Diseases: www.niddk.nih.gov ??? [place] [employer]: www.urologyhealth.org Contact a health care provider if: ??? You have pain that gets worse. ??? Your incontinence gets worse. Get help right away if: ??? You have a fever or chills. ??? You are unable to urinate. ??? You have redness in your groin area or down your legs. Summary ??? Urinary incontinence refers to a condition in which a person is unable to control where and when to pass urine. ??? This condition may be caused by medicines, infection, weak bladder muscles, weak pelvic floor muscles, enlargement of the prostate (in men), or surgery. ??? Factors such as older age, obesity, and childbirth, menopause, neurological diseases, and chronic coughing may increase your risk for developing this condition. ??? Types of urinary incontinence include urge incontinence, stress incontinence, overflow incontinence, and functional incontinence. ??? This condition is usually treated first with lifestyle and behavioral changes, such as quitting smoking, eating a healthier diet, and doing regular pelvic floor exercises. Other treatment options include medicines, bulking agents, medical devices, electrical nerve stimulation, or surgery. This information is not intended to replace advice given to you by your health care provider. Make sure you discuss any questions you have with your health care provider. Document Revised: 11/23/2020 Document Reviewed: 11/23/2020 [employer] Patient Education ? 2023 [employer]. C URINE Observed: 01/25/2025 9:18 AM Status: F Source: [facility] Microbiology PROCEDURE: Urine Culture [R1] SOURCE: U CleanCatch BODY SITE: COLLECTED DATE/TIME: 01/25/2025 09:18 EDT RECEIVED DATE/TIME: 01/25/2025 18:16 EDT START DATE/TIME: 01/25/2025 18:16 EDT FREE TEXT SOURCE: Maria E Osman PA-C, PA-C, Maria E FINAL REPORTS Final Report [] Verified Date/Time: 01/27/2025 09:06 EDT >100,000 cfu/ml Escherichia coli SUSCEPTIBILITY RESULTS LEGEND: S=Susceptible, N/R=Not Reported, Blank=Data not available, or drug not advisable or tested, I=Intermediate, ESBL=Extended spectrum beta-lactamase, R=Resistant, TFG=Thymidine-dependent strain, ELLA=Beta-lactamase positive, AUBREY=mcg/m;(mg/L), S*=Predicted susceptible interp, R*=Predicted resistant interp EC Antibiotic AUBREY Dilutn AUBREY Interp Ampicillin >16 R Ampicillin/ 16/8 I Sulbactam Cefazolin <=2 S Cefepime <=2 S Ceftazidime/ <=8 S Avibactam Ceftriaxone <=1 S Cefuroxime <=4 S Ciprofloxacin <=0.25 S Ertapenem <=0.5 S Gentamicin >8 R Levofloxacin <=0.5 S Meropenem <=1 S Nitrofurantoin <=32 S Piperacillin/ <=8 S Tazobactam Tetracycline >8 R Tobramycin 4 S Trimethoprim/ >2/38 R Sulfa Performing Locations R1: This test was performed at: [facility], [address] [place] [address], [id number], Performed By: #### [id number] # ### [facility] [address] [place] [address] URINE Observed: 01/25/2025 9:18 AM Status: F Source: [facility] Microbiology PROCEDURE: Urine Culture [R1] SOURCE: U CleanCatch BODY SITE: COLLECTED DATE/TIME: 01/25/2025 09:18 EDT RECEIVED DATE/TIME: 01/25/2025 18:16 EDT START DATE/TIME: 01/25/2025 18:16 EDT FREE TEXT SOURCE: Jacqui MOTT, Maria E Osman PA-C, Maria E FINAL REPORTS Final Report [] Verified Date/Time: 01/27/2025 09:06 EDT >100,000 cfu/ml Escherichia coli SUSCEPTIBILITY RESULTS LEGEND: S=Susceptible, N/R=Not Reported, Blank=Data not available, or drug not advisable or tested, I=Intermediate, ESBL=Extended spectrum beta-lactamase, R=Resistant, TFG=Thymidine-dependent strain, ELLA=Beta-lactamase positive, AUBREY=mcg/m;(mg/L), S*=Predicted susceptible interp, R*=Predicted resistant interp EC Antibiotic AUBREY Dilutn AUBREY Interp Ampicillin >16 R Ampicillin/ 16/8 I Sulbactam Cefazolin <=2 S Cefepime <=2 S Ceftazidime/ <=8 S Avibactam Ceftriaxone <=1 S Cefuroxime <=4 S Ciprofloxacin <=0.25 S Ertapenem <=0.5 S Gentamicin >8 R Levofloxacin <=0.5 S Meropenem <=1 S Nitrofurantoin <=32 S Piperacillin/ <=8 S Tazobactam Tetracycline >8 R Tobramycin 4 S Trimethoprim/ >2/38 R Sulfa Performing Locations R1: This test was performed at: [facility], [address] [place] [address], [id number] , [place], Performed By: #### [id number] # ### [facility] [address] [place] [id number] UROLOGY OFFICE/CLINIC NOTE Observed: 7:48 AM Status: F Source: [facility] Urology Office/Clinic Note Chief Complaint F/U with PVR HPI Staff Pt is a 79 year old female here for 3 month follow up with PVR Previous Dx: frequent uti, microscopic hematuria, mixed incontinence, anticoagulated, history of breast cancer, former smoker *Estrace cream 1x month, Pt. states not using S/P Botox 09/19/24 Pt. states last UTI was the first part of January and was given Cipro 7day PVR: 45mL 06/22/24 - 45mL 10/26/24 - 144mL BBSQ 22 Pt. having mixed incontinence Pt. denies having pain with urination Pt. denies having gross hematuria Pt. denies having abd pain Pt. having bilateral flank pain, occasionally History of Present Illness I have reviewed and verified the staff HPI to be accurate for this encounter. Review of Systems PHQ Score Initial Depression Screen Score: 0 SCORE General: Well developed, well nourished, in no acute distress. Physical Exam Vitals & Measurements HT: 165 cm HT: 65 in General: Well developed, well nourished, in no acute distress. Assessment/Plan 79 y/o female patient here today for 3 month f/u KML pt 1. Mixed incontinence (N39.46: Mixed incontinence) S/p cysto/Botox 100 units 09/19/24 UUI>JESUS BBSQ 21 (19) PVR today 45 ml (144 ml prior) UA today w/ moderate leuks and moderate blood Previously tried Myrbetriq but had adverse effects including bilateral kidney pain, cold-like sxs Gemtesa cost-prohibitive Trospium 60 mg ER denied by insurance. Ultimately switched back to Trospium 20 mg BID Previously, pt had c/o worsening urge incontinence. Using 6-7 pads/week. Drinking mostly water, 1 cup of coffee daily. Denied constipation. She underwent cysto/Botox given her symptoms. Last visit, pt reported urgency and UUI greatly improved since Botox. If she does experience UUI, states it is because she waits too long between voids. Now using 1 pad/day, not leaking much. She was taking Trospium 20 mg BID at this visit, advised to stop given elevated PVR at 144 ml. Today, she shares Botox seems to be wearing off. She is back to using multiple pads/day for UUI. She has also been experiencing more urgency. She would like to repeat Botox. She is no longer taking Trospium. Reviewed UA w/ pt, suspicious for possible infection. Recommend treating her infection prior to scheduling repeat Botox seeing it has only been 4 months since last treatment. She is agreeable. She would like started on empiric antibiotics at today's visit. All questions answered. She would like to f/u in 2 months to reevaluate her symptoms and need for repeat Botox at this time. -Send urine for culture & start empiric Macrobid x 7 days, call if resistant -Timed voids, voiding maneuvers -Increase water intake, avoid bladder irritants -Kegel/urge exercises -Follow up in 2 months w/ PVR, or sooner if needed Ordered: Urine Culture Urnls Dip Stick Auto w/o Microscopy POC 59878 2. Frequent UTI, (N39.0: Urinary tract infection, site not specified)Recurrent UTI CT AP w/ Con 03/10/20 - a stone in a vein adjacent to the Rt ureter rather than a ureteral stone, may represent a phlebolith rather than a renal stone. UCX: 04/14/22 >100k E Coli 06/09/22 pansensitive >100k E Coli 10/27/22 pansensitive >100k E Coli No documented UTIs for 202306/22/24 - no growth 09/12/24 - >100K E. Coli, tx w/ Keflex x 7 days 12/19/24 - >100K E. Coli, tx w/ Keflex x 7 days *Shares she had UTI beginning of Jan 2025, tx by PCP w/ 7 day course of Cipro (unable to locate UCX) UA today with moderate leuks and moderate blood Typical UTI symptoms include urine odor, increased urgency and dysuria Shares she had a UTI at the beginning of the month, tx by PCP. States she is no longer using topical Estrace cream. Not taking OTC herbal preventatives. Recommend she restart Estrace cream and start OTC preventatives. She is agreeable. -See #1 -Start Cranberry, D-mannose, probiotics. Handout provided. -Restart Estrace cream 3x/week x 1 month then 2x/week for maintenance. Instructions provided. -Increase water intake, avoid bladder irritants Ordered: estradiol topical, See Instructions, 42.5 gm, Refill(s) 2, Apply pea sized amount to urethra/vagina 3x a week for 1 month, then 2x a week afterwards, [facility]/pharmacy #[id number], 165, cm, 06/22/24 13:05:00 EST, Height/Length Dosing, 80.7, kg, 06/22/24 13:05:00 EST, Weight Dosing estradiol topical, See Instructions, 42.5 gm, Refill(s) 2, Apply pea sized amount to urethra/vagina 3x a week for 1 month, then 2x a week afterwards, [facility]/pharmacy #[id number], 165, cm, 01/25/25 8:16:00 EDT, Height/Length Dosing, 81.4, kg, 10/26/24 8:10:00 EDT, Weight Dosing nitrofurantoin, 100 mg = 1 cap(s), Oral, BID, X 7 day(s), # 14 cap(s), Refills(s) 0, [id number], 165, cm, 01/25/25 8:16:00 EDT, Height/Length Dosing, 81.4, kg, 10/26/24 8:10:00 EDT, Weight Dosing Urine Culture Urnls Dip Stick Auto w/o Microscopy POC 40000 3. History of kidney stones (Z87.442: Personal [...] -Cont symptom monitoring -High fluid intake, add lemon/tolowa dee-ni' -Moderate animal protein, increase fruits and vegetables Ordered: Urine Culture 4. 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 She has had a hematuria workup including a scope in the past at [facility]. Denies gross hematuria. CTU 07/18/24 - neg for filling defects, 3 mm right ureteral stone noted. Follow up CT scan confirmed passage. S/p cysto 09/19/24 - negative for b.t., lesions, stones or foreign bodies. Cystitis cystica. Moderate vaginal atrophy. UA today w/ moderate blood. Urine being sent for culture. -See #1 -Pt to notify our office for gross hematuria Ordered: Urine Culture 5. 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 Elevated risk of periop complications Ordered: Urine Culture 6. History of breast cancer (Z85.3: Personal history of malignant neoplasm of breast) Pt has a personal Hx of breast cancer. Hx of Lt Breast Lumpectomy. Contemporary studies show no risk of breast cancer and topical estrace cream. Ordered: Urine Culture 7. Former smoker (Z87.891: Personal history of nicotine dependence) Smoked for 10 years, has not smoked for a very long time. Low risk factor for bladder cancer Ordered: Urine Culture Follow-up With When Contact Information Maria E Osman PA-C, URL In 2 months Additional Instructions: w/ PVR Patient Education Urinary Incontinence Overactive Bladder, Adult Problem List/Past Medical History Ongoing Anticoagulated Chronic atrial fibrillation Eczema Former smoker Frequent UTI History of breast cancer History of kidney stones History of malignant neoplasm of breast Hypertensive disorder Microscopic hematuria Mixed incontinence Rectocele Historical No qualifying data Procedure/Surgical History Appendectomy, Cardiac ablation system, Cataracts, Cholecystectomy, Hip replacement, Lumpectomy of left breast, Rotator cuff, ROSA - Total abdominal hysterectomy. Medications Aleve atenolol 50 mg Tab, 50 mg= 1 tab(s) BACLOFEN 10 MG TABLET, 0 cycloSPORINE Opth 0.05% Emul, 1 drop(s) Eliquis 5 mg oral tablet Estrace 0.1 mg/g Cream, See Instructions, 2 refills flecainide 50 mg Tab, 50 mg= 1 tab(s) hydrochlorothiazide 25 mg Tab, Oral, Daily lisinopril 20 mg Tab Macrobid 100 mg Cap, 100 mg= 1 cap(s), Oral, BID Neuveria Vitamin OTC omeprazole 40 mg Cap-DR, 40 mg= 1 cap(s) Potassium Chloride (Bsm-Gyju-Naj 10) 10 mEq oral tablet, extended release, 10 mEq= 1 tab(s) SUMAtriptan 25 mg Tab, 25 mg= 1 tab(s) traZODONE 50 mg Tab, 50 mg= 1 tab(s) Allergies Ambien Levaquin Morphine Sulfate Ultram baclofen codeine penicillin Social History Alcohol Never., 01/22/2025 Substance Abuse Never., 01/22/2025 Tobacco Former smoker, quit more than 30 days ago Tobacco Use:. Never Smokeless Tobacco Use:. Cigarettes, Household tobacco concerns: No. Yes, 01/25/2025 Family History Family history is negative Immunizations Vaccine Date Status Comments influenza virus vaccine, inactivated 02/08/2024 Recorded influenza virus vaccine, inactivated 02/10/2023 Recorded influenza virus vaccine, inactivated 02/01/2022 Recorded SARSCoV2 mRNA(kscigbgcw-wxdz-dceutz) vac 08/13/2021 Recorded SARS-CoV-2 (COVID-19) mRNA BNT-162b2 vax 01/29/2021 Recorded 2023-02-11: TPV70 SARS-CoV-2 (COVID-19) mRNA BNT-162b2 vax 06/20/2020 Recorded SARS-CoV-2 (COVID-19) mRNA BNT-162b2 vax 05/28/2020 Recorded SARS-CoV-2 (COVID-19) mRNA BNT-162b2 vax 05/18/2020 Recorded influenza virus vaccine, inactivated 01/27/2020 Recorded influenza virus vaccine, inactivated 01/20/2019 Recorded influenza virus vaccine, inactivated 03/09/2018 Recorded pneumococcal 23-valent vaccine 01/05/2018 Recorded influenza virus vaccine, inactivated 01/05/2018 Recorded influenza virus vaccine, inactivated 02/25/2017 Recorded pneumococcal 23-valent vaccine 02/17/2017 Recorded pneumococcal 13-valent vaccine 02/05/2017 Recorded influenza virus vaccine, inactivated 02/05/2017 Recorded Lab Results Ambulatory Point of Care Results Bilirubin Urine Dipstick: Negative (01/25/25 08:16:00) Blood Urine Dipstick: 2+ Moderate (01/25/25 08:16:00) Glucose Urine Dipstick: Negative (01/25/25 08:16:00) Ketones Urine Dipstick: Negative (01/25/25 08:16:00) Leukocytes Urine Dipstick: 2+ Moderate (01/25/25 08:16:00) Nitrite Urine Dipstick: Negative (01/25/25 08:16:00) Protein Urine Dipstick: Negative (01/25/25 08:16:00) Specific [place] Urine Dipstick: 1.020 (01/25/25 08:16:00) Urine Appearance Urine Dipstick: Slightly cloudy (01/25/25 08:16:00) Urine Color Urine Dipstick: Yellow (01/25/25 08:16:00) Urobilinogen Urine Dipstick: Normal 0.2-1 EU/dl (01/25/25 08:16:00) pH Urine Dipstick: 5.5 (01/25/25 08:16:00) Result Comment: Electronical ly Signed By: Maria E Osman PA-C\.br\Date and Time Signed: 01/25/25 11:51 EDT AMBULATORY VISIT SUMMARY Observed: 01/25 7:48 AM Status: F Source: [facility] Ambulatory Visit Summary BETTIE BURNS :1945 Visit Date:01/25/2025 Ambulatory Visit Instructions Your Diagnosis Mixed incontinence [...] 40 mg Cap-DR) potassium chloride (Potassium Chloride (Edb-Zzvb-Icy 10) 10 mEq oral tablet, extended release) sumatriptan (SUMAtriptan 25 mg Tab) trazodone (traZODONE 50 mg Tab) Procedures Performed Appendectomy, Cardiac ablation system, Cataracts, Cholecystectomy, Hip replacement, Lumpectomy of left breast, Rotator cuff, ROSA - Total abdominal hysterectomy. Discharge Vitals Height 165 cm Height 65 in What to do next Scheduled Follow-Up Appointments Thursday 8:00 AM EST With: Maria E Osman PA-C Where: [facility] [address] [address]- Medications What How Much When Why Instructions [...] 1 Capsules Unchanged potassium chloride (Potassium Chloride (Jvw-Yaou-Ysi 10) 10 mEq oral tablet, extended release) 1 Tablets Unchanged sumatriptan (SUMAtriptan 25 mg Tab) 1 Tablets Unchanged trazodone (traZODONE 50 mg Tab) 1 Tablets Allergies Ambien Levaquin Morphine Sulfate Ultram baclofen [...] signed up for this yet, please contact [employer] at [phone] to get signed up today. Language Information Language assistance services are available as needed. ED NOTE Observed: 12/19/2024 1:18 AM Status: COMPLETED Source: [facility] HNO ID: [id number] Author: ADAM PORTILLO RN Service: ? Author Type: Registered Nurse Type: ED Notes Filed: 12/19/2024 01:18 Note Text: Patient discharged per MD orders. Discharge instructions reviewed. Pt encouraged to return to ED if worsening signs or symptoms occur. Prescriptions called into pharmacy of choice. Follow up care discussed. Pt left ED in stable condition. HIGH SENSITIVITY TROPONIN T (THIRD) 3 HRS AFTER INITIAL Collected: 12/19/2024 12:29 AM Status: F Source: [facility] Order Comment: Specimen Type : BLOOD SPECIMEN Ordering Facility: [facility] Address: [address] [place] [address] TYPE CODE TESTS RESULT OUT OF RANGE REFERENCE UNITS LAB 54102-4(LOINC) Troponin T SerPl HS-mCnc 13 High <12 ng/L Performed By: #### [id number] # ### [facility] CLIA [id number] [place] [address] [place] [facility] URINALYSIS COMPLETE PNL UR Collected: 12/19/2024 12:0 6 AM Status: F Source: [facility] Order Comment: Specimen Type : URINE SPECIMEN Ordering Facility: [facility] Address: [address] [place] [address] TYPE CODE TESTS RESULT OUT OF RANGE REFERENCE UNITS LAB 5778-6(LOINC) Color Ur Light Yellow yellow LAB 10178-5(LOINC) Clarity Spec Turbid Abnormal Clear LAB 5792-7(LOINC) Glucose Ur Strip-mCnc Negative Trace, Negative LAB 5770-3(LOINC) Bilirub Ur Ql Strip Negative Negative LAB 2514-8(LOINC) Ketones Ur Strip Negative Negative, Trace LAB 5811-5(LOINC) Sp Gr Ur Strip 1.028 1.005-1.030 LAB 5794-3(LOINC) Hgb Ur Ql Strip Trace Negative, Trace LAB 5803-2(LOINC) pH Ur Strip 6.0 5.0-8.0 LAB 5804-0(LOINC) Prot Ur Strip-mCnc Negative Trace, Negative LAB 5818-0(LOINC) Urobilinogen Ur Strip Normal Normal LAB 5802-4(LOINC) Nitrite Ur Ql Strip 2+ Abnormal Negative LAB 5799-2(LOINC) Leukocyte esterase Ur Ql Strip 500 Felipe/uL Abnormal Negative, 25 Felipe/uL LAB 5821-4(LOINC) WBC #/area UrnS HPF >25 /HPF Abnormal 0-5 /HPF LAB 60898-5(LOINC) RBC #/area UrnS HPF 6-10 /HPF Abnormal 0-3 /HPF LAB 5769-5(LOINC) Bacteria #/area UrnS HPF Rare Abnormal None Seen /HPF LAB 5787-7(LOINC) Epi Cells #/area UrnS HPF Few /HPF LAB 5796-8(LOINC) Hyaline Casts #/area UrnS LPF 1-3 /LPF Abnormal 0 /LPF Performed By: #### 88906-1 # ### [facility] CLIA [id number] [address] [place] [address] [place] #### 630-4 #### [facility] CLIA [id number] [address] [place] [address] [place] BACTERIA UR CULT Observed: 12/19/2024 12:06 AM Status: F Source: [facility] CULTURE, URINE: Mixed microbiota, including predominantly: ORGANISM ID: 1 >=100,000 CFU/ml Escherichia coli ORGANISM ID: 1 (ESCHERICHIA COLI) ----- ----- ANTIBIOTIC INTERPRETATION AUBREY STATUS REFERENCE RANGE ----- ----- Ampicillin R >=32 F Susceptible <=8 , [...] <=32 , Intermediate >32 , Resistant >64 Performed By: #### 70311-6 # ### [facility] CLIA [id number] [address] [place] [address] [place] #### 630-4 #### [facility] CLIA [id number] [address] [address] [place] CTA CHEST (NON GATED) W IVCO N PE Observed: 12/18/2024 10:27 PM Status: F Source: [facility] * * *Final Report* * * DATE OF EXAM: Dec 18 2024 10:27PM [facility] 0564 - CTA CHEST (NON GATED) W RUTH PE / PROCEDURE REASON: Pulmonary embolism (PE) [...] process. 3. Calcified granulomas and lymph nodes. Application Defense Manager: SHIVANI Transcribe Date/Time: Dec 19 2024 12:32A Dictated by : JASON HINKLE MD This examination was interpreted and the report reviewed and electronically signed by: JASON HINKLE MD on Dec 19 2024 12:45AM EST [id number] CT BRAIN WO IVCON Observed: 12/18/2024 10:24 PM Status: F Source: [facility] * * *Final Report* * * DATE OF EXAM: Dec 18 2024 10:24PM [facility] 0504 - CT BRAIN WO IVCON [...] Other: No depressed skull fracture is seen. Grades 1 Through 5 Teacher (topogram) images: Degenerative spine changes noted. Non-diagnostic otherwise. IMPRESSION: Brain CT shows no evidence of an acute intracranial abnormality. Chronic intracranial changes and other details above. Application Defense Manager: SHIVANI Transcribe Date/Time: Dec 18 2024 11:53P Dictated by : LOVE VALENCIA MD This examination was interpreted and the report reviewed and electronically signed by: LOVE VALENCIA MD on Dec 19 2024 12:12AM EST [id number] ALLIED HEALTH Observed: 12/18/2024 10:22 PM Status: COMPLETED Source: [facility] HNO ID: [id number] Author: VAN WAHL Tech Service: Radiology Author Type: Color Tester Type: Allied Health Filed: 12/18/2024 22:22 Note [...] PATIENT PRESENTS WITH AN IMPLANTABLE OR ATTACHED GLOBAL MARKETING COORDINATOR: No RADIOLOGY DEPARTMENT: CT; Exam(s) Completed: Brain and PE Study PERIPHERAL IV DATA: Inpatient: see LDA documentation SIGNED BY: Cherrie Martin December 18, 2024 9:44 PM HIGH SENSITIVITY TROPONIN T (SECOND) Collected: 12/18/2024 9:42 PM Status: F Source: [facility] Order Comment: Specimen Type : BLOOD SPECIMEN Ordering Facility: [facility] Address: [address] [place] [address] TYPE CODE TESTS RESULT OUT OF RANGE REFERENCE UNITS LAB 00764-2(LOINC) Troponin T SerPl HS-mCnc 12 High <12 ng/L Performed By: #### [id number] # ### [facility] CLIA [id number] [place] [address] [place] XR CHEST 1V FRONTAL PORT Observed: 12/18 8:46 PM Status: F Source: [facility] * * *Final Report* * * DATE [...] described above with no definite acute disease. Application Defense Manager: SHIVANI Transcribe Date/Time: Dec 18 2024 8:55P Dictated by : KATRIN PHILIP MD This examination was interpreted and the report reviewed and electronically signed by: KATRIN PHILIP MD on Dec 18 2024 8:56PM EST [id number] HIGH SENSITIVITY TROPONIN T (INITIAL) Collected: 12/18/2024 8:39 PM Status: F Source: [facility] Order Comment: Specimen Type : BLOOD SPECIMEN Ordering Facility: [facility] Address: [address] [place] [address] TYPE CODE TESTS RESULT OUT OF RANGE REFERENCE UNITS LAB 03584-9(LOINC) Troponin T SerPl HS-mCnc 14 High <12 ng/L Performed By: #### [id number] # ### [facility] CLIA [id number] [address] [facility] [address] [place] PT PNL PPP Collected: 12/18/2024 8:39 PM Status: F Source: [facility] Order Comment: Specimen Type : BLOOD SPECIMEN Ordering Facility: [facility] Address: [address] [place] [address] TYPE CODE TESTS RESULT OUT OF RANGE REFERENCE UNITS LAB 5902-2(LOINC) Prothrombin time 11.7 9.7-13.0 sec LAB 6301-6(LOINC) INR PPP 1.1 0.9-1.3 Result Comment: Vitamin K An tagonist (VKA) Therapeutic Range: INR 2 to 3 (Target INR of 2.5) Note: For patients treated with VKA drugs, such as warfarin, the [place] [employer] 2012 Guideline recommends [...] GH, et al. Chest 2012, 141:7S-47S Jw RA et al. [facility] 2017, 70: 252-289 Performed By: #### 55781-0 # ### [facility] CLIA [id number] [address] CBC W AUTO DIFF BLD Collected: 12/18/2024 8:[address] atus: F Source: [facility] Order Comment: Specimen Type : BLOOD SPECIMEN Ordering Facility: [facility] Address: [address] [place] [address] TYPE CODE TESTS RESULT OUT OF RANGE REFERENCE UNITS LAB 6690-2(LOINC) WBC # Bld Auto 7.47 3.70-11.00 k/uL LAB 789-8(LOINC) RBC # Bld Auto 3.79 Low 3.90-5.20 m/ uL LAB 718-7(LOINC) Hgb Bld-mCnc 12.3 11.5-15.5 g/dL LAB 4544-3(LOINC) Hct VFr Bld Auto 36.9 36.0-46.0 % LAB 787-2(LOINC) MCV RBC Auto 97.4 80.0-100.0 fL LAB 785-6(LOINC) MCH RBC Qn Auto 32.5 26.0-34.0 p g LAB 786-4(LOINC) MCHC RBC Auto-mCnc 33.3 30.5-36.0 g/dL LAB 96793-5([facility]) RDW RBC-Rto 11.9 11.5-15.0 % LAB 777-3([facility]) Platelet # Bld Auto 209 150-400 k/uL LAB 16823-5([facility]) PMV Bld Auto 8.7 Low 9.0-12.7 fL LAB 770-8([facility]) Neutrophils/leuk NFr Bld Auto 33.0 % LAB 751-8([facility]) Neutrophils # Bld Auto 2.47 1.45-7.50 k/uL LAB 736-9([facility]) Lymphocytes/leuk NFr Bld Auto 51.7 % LAB 731-0([facility]) Lymphocytes # Bld Auto 3.86 1.00-4.00 k/uL LAB 5905-5([facility]) Monocytes/leuk NFr Bld Auto 9.4 % LAB 742-7([facility]) Monocytes # Bld Auto 0.70 <0.87 k/uL LAB 713-8([facility]) Eosinophil/leuk NFr Bld Auto 4.6 % LAB 711-2([facility]) Eosinophil # Bld Auto 0.34 <0.46 k/uL LAB 706-2([facility]) Basophils/leuk NFr Bld Auto 1.2 % LAB 704-7([facility]) Basophils # Bld Auto 0.09 <0.11 k/uL LAB 83600-3([facility]) Imm Granulocytes/felipe k NFr Bld Auto 0.1 % LAB 57858-6([facility]) Imm Granulocytes # Bld Auto <0.03 <0.10 k/uL LAB 04605-7([facility]) nRBC/100 WBC Bld-Rto 0.0 /100 WBC LAB 771-6([facility]) nRBC # Bld Auto <0.01 <0.01 k/u L LAB 53149-7([facility]) Differential method Bld Auto Performed By: #### 42222-9 # ### [facility] CLIA [id number] [place] [address] [place] ETHANOL SERPL-MCNC Collected: 5 8:39 PM Status: F Source: [facility] Order Comment: Specimen Type : BLOOD SPECIMEN Ordering Facility: [facility] Address: [address] [place] [address] TYPE CODE TESTS RESULT OUT OF RANGE REFERENCE UNITS LAB 5643-2(LOINC) Ethanol SerPl-mCnc 105 High <11 mg/dL Result Comment: Values > 80 mg/dL may indicate intoxication Performed By: #### 5643-2 ## ## [facility] CLIA [id number] [address] [place] [address] [facility] [place] NT-PROBNP SERPL-MCNC Collected: 12/18/2024 8:39 PM S tatus: F Source: [facility] Order Comment: Specimen Type : BLOOD SPECIMEN Ordering Facility: [facility] Address: [address] [place] [address] TYPE CODE TESTS RESULT OUT OF RANGE REFERENCE UNITS LAB 23013-0(LOINC) NT-proBNP SerPl-mCnc 507 High <450 pg/mL Performed By: #### 20120-3 # ### [facility] CLIA [id number] [place] CK SERPL-CCNC Collected: 12/18/2024 8:39 PM Status: F Source: [facility] Order Comment: Specimen Type : BLOOD SPECIMEN Ordering Facility: [facility] Address: [address] [place] [address] TYPE CODE TESTS RESULT OUT OF RANGE REFERENCE UNITS LAB 2157-6(LOINC) CK SerPl-cCnc 37 Low 42-196 U/L Performed By: #### 2157-6, 1 9123-9, 3040-3, 04443-0 #### [facility] CLIA [id number] [address] [place] COMP METAB 2000 PNL SERPL Collected: 8:39 PM Status: F Source: [facility] Order Comment: Specimen Type : BLOOD SPECIMEN Ordering Facility: [facility] Address: [address] [place] [address] TYPE CODE TESTS RESULT OUT OF RANGE REFERENCE UNITS LAB 2885-2(LOINC) Prot SerPl-mCnc 6.4 6.3-8.0 g/dL LAB 1751-7(LOINC) Albumin SerPl-mCnc 3.7 Low 3.9-4.9 g/dL LAB 31787-2(LOINC) Calcium SerPl-mCnc 9.4 8.5-10.2 mg/dL LAB 1975-2(LOINC) Bilirub SerPl-mCnc 0.2 0.2-1.3 mg/dL LAB 6768-6(LOINC) ALP SerPl-cCnc 55 34-123 U/L LAB 1920-8(LOINC) AST SerPl-cCnc 16 13-35 U/L LAB 1742-6(LOINC) ALT SerPl-cCnc 9 7-38 U/L LAB 2345-7(LOINC) Glucose SerPl-mCnc 153 High 74-99 mg/dL Result Comment: The [place] Diabetes Association (ADA) provides guidance for cutoff [...] Standards of Medical Care in Diabetes 2016, [place] [employer] Association. Diabetes Care. 2016.39(Suppl 1). LAB 3094-0(LOINC) BUN SerPl-mCnc 22 High 7-21 mg/dL LAB 2160-0(LOINC) Creat SerPl-mCnc 1.24 High 0.58-0.96 mg/dL LAB 2951-2(LOINC) Sodium SerPl-sCnc 138 136-144 mmol/L LAB 2823-3(LOINC) Potassium SerPl-sCnc 3.1 Low 3.7-5.1 mmol/L LAB 2075-0(LOINC) Chloride SerPl-sCnc 99 98-107 mmol/L LAB 2028-9(LOINC) CO2 SerPl-sCnc 24 22-30 mmol/L LAB 99296-5(LOINC) Anion Gap SerPl-sCnc 15 8-15 mmol/L LAB 83280-6(LOINC) eGFRcr SerPlBld CKD-EPI 2020 45 Low >=60 mL/min/1. 73m??? Result Comment: Estimated Gl omerular Filtration Rate (eGFR) is calculated using the 2020 CKD-EPI creatinine equation. This equation utilizes serum creatinine, sex, and age as parameters. The creatinine assay has traceable calibration to isotope dilution-mass spectrometry. Refer to KDIGO guidelines for clinical interpretation. In patients with unstable renal function, e.g. those with acute kidney injury, the eGFR may not accurately reflect actual GFR. Performed By: #### 2157-6, 1 9123-9, 3040-3, 57918-8 #### [facility] CLIA [id number] [address] [place] [address] [facility] LIPASE SERPL-CCNC Collected: 12/18/2024 8:39 PM Stat us: F Source: [facility] Order Comment: Specimen Type : BLOOD SPECIMEN Ordering Facility: [facility] Address: [address] [place] [address] TYPE CODE TESTS RESULT OUT OF RANGE REFERENCE UNITS LAB 3040-3([facility]) Lipase SerPl-cCnc 24 16-61 U/L Performed By: #### 2157-6, 1 9123-9, 3040-3, 21401-5 #### [facility] CLIA [id number] [address] [place] [address] [place] [facility] MAGNESIUM SERPL-MCNC Collected: 12/18/2024 8:39 PM S tatus: F Source: [facility] Order Comment: Specimen Type : BLOOD SPECIMEN Ordering Facility: [facility] Address: [address] [place], [place] [address] TYPE CODE TESTS RESULT OUT OF RANGE REFERENCE UNITS LAB 91281-5([facility]) Magnesium SerPl-mCnc 2.0 1.7-2.3 mg/dL Performed By: #### 2157-6, 1 9123-9, 3040-3, 81918-5 #### [facility] CLIA [id number] [address] [place] [address] [place] PROGRESS Observed: 12/18/2024 8:31 PM Status: COMPLETED Source: [facility] HNO ID: [id number] Author: HARSH BARCENAS RT(Emelina) Service: ? Author Type: Technologist Type: Progress [...] PATIENT PRESENTS WITH AN IMPLANTABLE OR ATTACHED GLOBAL MARKETING COORDINATOR: No RADIOLOGY DEPARTMENT: General X-ray: Exam(s) Completed: Chest X-Ray PERIPHERAL IV DATA: Not applicable SIGNED BY: RT Magy(Emelina) December 18, 2024 8:31 PM ED PROV NOTE Observed: 12/18/2024 8:29 PM Status: COMPLETED Source: [facility] HNO ID: [id number] Author: GOVIND SNOW DO Service: ? Author Type: Physician Type: ED Provider Notes Filed: 01/10/2025 16:06 Note Text: ED Provider Note Patient Name: [...] Oxycodone Hives Penicillins Hives Review of Systems All other systems reviewed and are negative. Physical Exam Vitals [12/18/24 2019] BP Pulse Temp Temp src Resp SpO2 Weight Height 120/50 65 36.6 ?C (97.8 ?F) Oral 16 95 % 78 kg (172 lb) 1.651 m (5' 5 ) Physical Exam Vitals and nursing note reviewed. Constitutional: Appearance: Normal appearance. Comments: thin HENT: Head: Normocephalic and atraumatic. Nose: Nose normal. Eyes: Extraocular Movements: Extraocular movements intact. Cardiovascular: Rate and Rhythm: Normal rate and regular rhythm. Pulses: Normal pulses. Pulmonary: Effort: Pulmonary effort is normal. Abdominal: General: Abdomen is flat. Palpations: Abdomen is soft. Musculoskeletal: General: Normal range of motion. Cervical back: Neck supple. Skin: General: Skin is warm. Neurological: General: No focal deficit present. Mental Status: She is alert. Psychiatric: Mood and Affect: Mood normal. Diagnostic Testing ED Labs Ordered and Reviewed [...] results, radiology results and suspected diagnosis. SIGNATURE: DO Saige Singh ERIC 12/19/24 0105 [1] Social History Tobacco Use Smoking status: Former Current packs/day: 0.00 Average packs/day: 1 pack/day for 20.0 years (20.0 ttl pk-yrs) Types: Cigarettes Start date: 12/05/1970 Quit date: 12/05/1990 Years since quittin.0 Smokeless tobacco: Never Vaping Use Vaping status: Never Used Substance and Sexual Activity Alcohol use: Yes Drug use: No Sexual activity: Never GOVIND SNOW 01/10/25 1606 EKG Observed: 12/18/2024 8:27 PM Status: F Source: [facility] Ventricular Rate : 53 BPM Atrial Rate : 53 BPM P-R Interval : 255 ms QRS Duration : 125 ms Q-T Interval : 458 ms QTC Calculation(Bazett) : 430 ms Calculated P [place] : 231 degrees Calculated R [place] : -23 degrees Calculated T [place] : 117 degrees Sinus or ectopic atrial rhythm Prolonged ID intervalAbnormal ECG Confirmed by GOVIND SNOW DO ([id number]) on 12/19/2024 1:04:30 AM NAME : BETTIE BURNS PID : [id number] : 1945 Gender : Female Race : ORD : Procedure Date : Dec 18 2024 20:27:32 Edit Date : Dec 19 2024 01:04:35 Diagnosis: Sinus or ectopic atrial rhythm Prolonged ID intervalAbnormal ECG Confirmed by GOVIND SNOW DO ([id number]) on 12/19/2024 1:04:30 AM Test Reason : Location : 302 : ED AVED-12 Overread By : GOVIND SNOW DO Edited By : GOVIND SNOW DO Referred By : , Acquired by : , ED NOTE Observed: 12/18/2024 8:17 PM Status: COMPLETED [facility]: [id number] Author: ISHMAEL GARCIA RN Service: ? Author Type: Registered Nurse Type: ED Notes Filed: 12/18/2024 20:17 Note Text: Bed: ED-12 Expected date: Expected time: Means of arrival: Comments: CBC (NO DIFF) Collected: 10:16 AM Status: COMPLETED Source: [facility] TYPE CODE TESTS RESULT OUT OF RANGE REFERENCE UNITS LAB WBC WBC 5.1 4-11 x10E9/L LAB RBC RBC COUNT 4.16 3.8-5.2 X10E12/L LAB HGB HEMOGLOBIN 13.6 11.7-15.5 g/dL LAB HCT HEMATOCRIT 40.0 35-47 % LAB MCV MCV 96 80-100 fL LAB MCH MCH 32.7 27-34 pg LAB MCHC MCHC 34.1 32-36 g/dL LAB RDW RDW 12.8 11.5-15 % LAB PLTC PLATELET COUNT 206 150-450 X10E9/L LAB MPV MPV 7.0 7-12 fL Performed By: #### CBC #### [facility] ([facility]) [address] [place] [address] VIR COMPREHENSIVE METABOLIC PANEL Collected: 2024 9:52 AM Status: COMPLETED Source: [facility] TYPE CODE TESTS RESULT OUT OF RANGE REFERENCE UNITS LAB NA SODIUM 141 134-146 mmol/L LAB K POTASSIUM 3.9 3.5-5.0 mmol/L LAB CL CHLORIDE 101 98-109 mmol/L LAB CO2 CARBON DIOXIDE 32 22-32 mmol/L LAB AGAP ANION GAP 8 5-15 mmol/L LAB BUN BLOOD UREA NITROGEN 27 5-27 mg/dL LAB CRET CREATININE 1.06 High 0.40-1.00 mg/dL Result Comment: METHOD TRACE ABLE TO IDMS STANDARD LAB GLU GLUCOSE 109 High 65-99 mg/dL LAB CA CALCIUM 10.0 8.5-10.5 mg/dL LAB TP TOTAL PROTEIN 7.2 6.0-8.0 g/dL LAB ALB ALBUMIN 4.2 3.2-5.3 g/dL LAB ALK ALKALINE PHOSPHATASE 48 39-130 U/L LAB AST AST 17 <=41 U/L LAB ALT ALT 10 <=31 U/L LAB TBIL BILIRUBIN,TOTAL 0.5 0.3-1.2 mg/dL LAB EGFR EGFR (CKD-EPI) NON-RACE DEPENDENT 54 Low >=60 ml/min/1 .73sq.m Result Comment: Reported eGF R is based on the CKD-EPI 2020 equation that does not use a race coefficient. Performed By: #### CMP #### [facility] ([facility]) [address] [place] [id number] VIR MAGNESIUM Collected: 11/08/2024 9:52 AM S tatus: COMPLETED Source: [facility] TYPE CODE TESTS RESULT OUT OF RANGE REFERENCE UNITS LAB MG MAGNESIUM 1.9 1.8-2.6 mg/dL Performed By: #### MG #### [facility] ([facility]) [address] [place] [address] VIR UROLOGY OFFICE/CLINIC NOTE Observed: 7:42 AM Status: F Source: [facility] Urology Office/Clinic Note Chief Complaint F/U with [...] off and repeat Botox is desired Ordered: 51738 Measure Post Void residual urine and/or bladder capacity by US- non- imaging Urnls Dip Stick Auto w/o Microscopy POC 27579 2. Frequent UTI (N39.0: Urinary tract infection, [...] -Cont symptom monitoring -High fluid intake, add lemon/tolowa dee-ni' -Moderate animal protein, increase fruits and vegetables 4. 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 She has had a hematuria workup including a scope in the past at [facility]. Denies gross hematuria. CTU 07/18/24 - neg for filling defects, 3 mm right ureteral stone noted. Follow up CT scan confirmed passage. S/p cysto 09/19/24 - negative for b.t., lesions, stones or foreign bodies. Cystitis cystica. Moderate vaginal atrophy. UA today w/ moderate blood. She denies gross hematuria or symptoms of infection. Recent hematuria work-up negative. -Cont symptom monitoring -Pt to notify our office for gross hematuria 5. 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 Elevated risk of periop complications 6. History of breast cancer (Z85.3: Personal history of malignant neoplasm of breast) Pt has a personal Hx of breast cancer. Hx of Lt Breast Lumpectomy. Contemporary studies show no risk of breast cancer and topical estrace cream. 7. Former smoker (Z87.891: Personal history of nicotine dependence) Smoked for 10 years, has not smoked for a very long time. Low risk factor for bladder cancer Follow-up With When Contact Information Maria E Osmna PA-C, URL In 3 months Additional Instructions: w/ PVR Problem List/Past Medical History Ongoing Anticoagulated Chronic atrial fibrillation Eczema Former smoker Frequent UTI History of breast cancer History of kidney stones History of malignant neoplasm of breast Hypertensive disorder Microscopic hematuria Mixed incontinence Rectocele Historical No qualifying data Procedure/Surgical History Appendectomy, Cardiac ablation system, Cataracts, Cholecystectomy, Hip replacement, Lumpectomy of left breast, Rotator cuff, ROSA - Total abdominal hysterectomy. Medications Aleve atenolol 50 mg Tab, 50 mg= 1 tab(s) BACLOFEN 10 MG TABLET, 0 cycloSPORINE Opth 0.05% Emul, 1 drop(s) Eliquis 5 mg oral tablet Estrace 0.1 mg/g Cream, See Instructions, 2 refills flecainide 50 mg Tab, 50 mg= 1 tab(s) hydrochlorothiazide 25 mg Tab, Oral, Daily lisinopril 20 mg Tab Neuveria Vitamin OTC omeprazole 40 mg Cap-DR, 40 mg= 1 cap(s) Potassium Chloride (Xjz-Kiuv-Qky 10) 10 mEq oral tablet, extended release, 10 mEq= 1 tab(s) SUMAtriptan 25 mg Tab, 25 mg= 1 tab(s) traZODONE 50 mg Tab, 50 mg= 1 tab(s) trospium 60 mg oral capsule, extended release, 60 mg= 1 cap(s), Oral, Bedtime, 3 refills Allergies Ambien Levaquin Morphine Sulfate Ultram baclofen codeine penicillin Social History Tobacco Former smoker, quit more than 30 days ago Tobacco Use:. Never Smokeless Tobacco Use:. Cigarettes, Household tobacco concerns: No. Yes, 10/26/2024 Family History Family history is negative Immunizations Vaccine Date Status Comments influenza virus vaccine, inactivated 02/08/2024 Recorded influenza virus vaccine, inactivated 02/10/2023 Recorded influenza virus vaccine, inactivated 02/01/2022 Recorded SARSCoV2 mRNA(pnhgslocg-aznp-iflalm) vac 08/13/2021 Recorded SARS-CoV-2 (COVID-19) mRNA BNT-162b2 vax 01/29/2021 Recorded 2023-02-11: TPV70 SARS-CoV-2 (COVID-19) mRNA BNT-162b2 vax 06/20/2020 Recorded SARS-CoV-2 (COVID-19) mRNA BNT-162b2 vax 05/28/2020 Recorded SARS-CoV-2 (COVID-19) mRNA BNT-162b2 vax 05/18/2020 Recorded influenza virus vaccine, inactivated 01/27/2020 Recorded influenza virus vaccine, inactivated 01/20/2019 Recorded influenza virus vaccine, inactivated 03/09/2018 Recorded pneumococcal 23-valent vaccine 01/05/2018 Recorded influenza virus vaccine, inactivated 01/05/2018 Recorded influenza virus vaccine, inactivated 02/25/2017 Recorded pneumococcal 23-valent vaccine 02/17/2017 Recorded pneumococcal 13-valent vaccine 02/05/2017 Recorded influenza virus vaccine, inactivated 02/05/2017 Recorded Lab Results Ambulatory Point of Care Results Bilirubin Urine Dipstick: Negative (10/26/24 08:00:00) Blood Urine Dipstick: 2+ Moderate (10/26/24 08:00:00) Glucose Urine Dipstick: Negative (10/26/24 08:00:00) Ketones Urine Dipstick: Negative (10/26/24 08:00:00) Leukocytes Urine Dipstick: Negative (10/26/24 08:00:00) Nitrite Urine Dipstick: Negative (10/26/24 08:00:00) Protein Urine Dipstick: Negative (10/26/24 08:00:00) Specific [place] Urine Dipstick: 1.015 (10/26/24 08:00:00) Urine Appearance Urine Dipstick: Clear (10/26/24 08:00:00) Urine Color Urine Dipstick: Yellow (10/26/24 08:00:00) Urobilinogen Urine Dipstick: Normal 0.2-1 EU/dl (10/26/24 08:00:00) pH Urine Dipstick: 6 (10/26/24 08:00:00) Result Comment: Electronical ly Signed By: Jacqui MOTT, Maria E\.br\Date and Time Signed: 10/26/24 09:05 EDT AMBULATORY VISIT SUMMARY Observed: 10/26 7:42 AM Status: F Source: [facility] Ambulatory Visit Summary BETTIE BURNS :1945 Visit [...] 40 mg Cap-DR) potassium chloride (Potassium Chloride (Nhe-Acmj-Ecs 10) 10 mEq oral tablet, extended release) [...] E Osman PA-C Where: [facility] [address] [id number]- Medications What How Much When Why Instructions [...] 1 Capsules Unchanged potassium chloride (Potassium Chloride (Ktv-Yryt-Flk 10) 10 mEq oral tablet, extended release) [...] signed up for this yet, please contact [employer] at [phone] to get signed up today. Language Information Language assistance services are available as needed. PROGRESS NOTE-PHYSICIAN Observed: 2024 8:25 AM Status: F Source: [facility] Progress Note-Physician Patient: BETTIE BURNS Age: 79 years Sex: Female : 1945 Associated Diagnoses: None Author: Paul VILLEGAS, Alfreda Palacios Health Status Allergies: Allergic Reactions (Selected) Severity [...] 1 month, then 2x a week afterwards, [facility]/pharmacy #[id number], 165, cm, 06/22/24 13:05:00 EST, Height/Length Dosing, 80.7, kg, 06/22/24 13:05:00 EST, Weight Dosing... Keflex 500 mg Cap: 500 mg = 1 cap(s), Oral, q12hr, X 7 day(s), # 14 cap(s), Refills(s) 0, Pharmacy: [facility]/pharmacy #[id number], 165, cm, 06/22/24 13:05:00 EST, Height/Length Dosing, 80.7, kg, 06/22/24 13:05:00 EST, Weight Dosing trospium 60 mg oral capsule, extended release: 60 mg = 1 cap(s), Oral, Bedtime, # 90 tab(s), Refills(s) 3, Pharmacy: [facility], 165, cm, 05/27/23 8:54:00 EST, Height/Length Dosing, 77.5, kg, 05/27/23 8:54:00 EST, Weight Dosing Documented Medications Documented Aleve: Refills(s) 0 BACLOFEN 10 MG TABLET: BACLOFEN 10 MG TABLET Eliquis 5 mg oral tablet: Refills(s) 0 Neuveria Vitamin OTC: Neuveria Vitamin OTC Potassium Chloride (Ikz-Cvfp-Jhi 10) 10 mEq oral tablet, extended release: [...] Plan Assessment and Plan: Diagnosis: Vaginal atrophy (EGZ56-RG N95.2, Discharge, Medical), Recurrent UTI (DWO43-PR N39.0, Discharge, Medical), Mixed incontinence (LQQ68-MC N39.46, Discharge, Medical). 79-year-old female with a [...] CT scan confirmed passage. Increase fluids recommended Result Comment: Electronical ly Signed By: Alfreda Miller MD\.br\Date and Time Signed: 09/19/24 08:28 EDT OUTPATIENT SURGERY DISCHARGE INSTRUCTION Observed: 09/19/2024 8:23 AM Status: F Source: [facility] Outpatient Surgery Discharge Instruction [place] [id number] Patient Discharge Instructions PERSON INFORMATION Name: BETTIE [...] to serve you. Thank you for choosing [facility] PATIENT EDUCATION Observed: 09/19/2024 8:23 AM Status: F Source: [facility] Patient Education Cystoscopy with Botox injection ??? [...] have a fever over 100 degrees. ??? INPATIENT PATIENT SUMMARY Observed: 09/01 8:23 AM Status: F Source: [facility] Inpatient Patient Summary [place] [address] Clinical Summary Person Information Name: BETTIE BURNS Age: 79 Years : 1945 Sex: Female PCP: ELLIOT STARKS MD Marital Status: Race: White Ethnicity: Non- or Language: Nigerian Visit Id: Visit Reason: MIXED INCONTINENCE Speciality: Acuity: Enc Type: Outpatient Med Service: Surgery Arrival: 09/19/2024 07:39:26 Discharge: Dispo Type: Address: [address] [place] [phone] Provider Notes: Diagnosis: Mixed incontinence; Recurrent UTI; [...] Cap-DR) 1 Capsules. potassium chloride (Potassium Chloride (Unn-Ypat-Tdu 10) 10 mEq oral tablet, extended release) [...] Cystoscopy with Botox Injection Discharge Instructions (CUSTOM) OPERATIVE REPORT Observed: 09/19/2024 8:23 AM Status: F Source: [facility] Operative Report Patient: BETTIE BURNS Age: 79 years Sex: Female : 1945 Associated Diagnoses: None Author: Alfreda Miller MD Procedure Operative Information Details: Date/ Time: 09/19/2024 08:24:00. Pre-Op Dx: Mixed Urinary Incontinence - N39.46. Post-Op Dx: Same. Anesthesia Type: Local. Procedure: Local Cystoscopy with botox injection. Complications: None. Risks/Benefits/Informed Consent: Surgical risks, benefits, details of the [...] note regarding vaginal atrophy and recurrent UTIs. Result Comment: Electronical ly Signed By: Alfreda Miller MD\.br\Date and Time Signed: 09/19/24 08:25 EDT MAIN OR INTRAOPERATIVE RECORD Observed: 09/19/2024 8:17 AM Status: F Source: [facility] Main OR Intraoperative Recor d IntraOp Document Type FTURO Summary Primary Physician: Alfreda Miller MD Finalized Date/Time: 09/19/24 08:27:50 Pt. Name: BETTIE BURNS Diana Browning/Sex: 1945 Female Med Rec #: [id number] Physician: Alfreda Miller MD Financial #: [id number] Pt. Type: O Room/Bed: / Admit/Disch: 09/19/24 07:39:26 - Institution: Case Times FTURO Entry 1 Patient Times In Room 09/19/24 08:12:00 Out Room 09/19/24 08:24:00 Procedure Times Start 09/19/24 08:17:00 Stop 09/19/24 08:20:00 Anesthesia Times Last Modified By: Roxy King 09/19/24 08:27:24 General Comments: BOTOX 100 UNITS: EXP: AND LOT: [id number].RICARDO MOREIRA. Case Attendance FTURO Entry 1 Entry 2 Entry 3 Case Attendee Alfreda Miller MD, Kelsie E Miller, Laura C Role Performed Surgeon - Primary Occupational Therapist Rehab Manager - Primary Scrub - Primary Time In [...] By: Roxy King 09/19/24 08:27:38 Case Comments <None> Finalized By: Roxy King Document Signatures Signed By: Roxy King 09/19/24 08:27 MAIN OR PREOPERATIVE RECORD Observed: 8:00 AM Status: C Source: [facility] Main OR Preoperative Record Holding Area Document Type FTURO Summary Primary Physician: Alfreda Miller MD Finalized Date/Time: 09/19/24 08:17:11 Pt. Name: TCJANBETTIE/Sex: 1945 Female Med Rec #: [id number] Physician: Alfreda Miller MD Financial #: [id number] Pt. Type: O Room/Bed: / Admit/Disch: 09/19/24 [...] Complaints of Pain: No Skin Integrity Intact, Leach, Warm, & Dry Vitals - EU Blood [...] Unfinalizing Freetext Reason for Unfinalizing 09/19/24 08:16 [id number] Adding Additional Data HISTORY AND PHYSICAL Observed: 5 8:00 AM Status: F Source: [facility] History and Physical Patient: BETTIE BURNS Age: 79 [...] 1 month, then 2x a week afterwards, [facility]/pharmacy #[id number], 165, cm, 06/22/24 13:05:00 EST, Height/Length Dosing, 80.7, kg, 06/22/24 13:05:00 EST, Weight Dosing... Keflex 500 mg Cap: 500 mg = 1 cap(s), Oral, q12hr, X 7 day(s), # 14 cap(s), Refills(s) 0, Pharmacy: [facility]/pharmacy #[id number], 165, cm, 06/22/24 13:05:00 EST, Height/Length Dosing, 80.7, kg, 06/22/24 13:05:00 EST, Weight Dosing trospium 60 mg oral capsule, extended release: 60 mg = 1 cap(s), Oral, Bedtime, # 90 tab(s), Refills(s) 3, Pharmacy: [facility], 165, cm, 05/27/23 8:54:00 EST, Height/Length Dosing, 77.5, kg, 05/27/23 8:54:00 EST, Weight Dosing Documented Medications Documented Aleve: Refills(s) 0 BACLOFEN 10 MG TABLET: BACLOFEN 10 MG TABLET Eliquis 5 mg oral tablet: Refills(s) 0 Neuveria Vitamin OTC: Neuveria Vitamin OTC Potassium Chloride (Ujz-Inva-Ecv 10) 10 mEq oral tablet, extended release: [...] list: All Problems Anticoagulated / SNOMED CT 761343267 / Confirmed Chronic atrial fibrillation / SNOMED CT 8745109484 / Confirmed Eczema / SNOMED CT 30315227 / Confirmed Former smoker / SNOMED CT 02317579 / Confirmed Frequent UTI / SNOMED CT 072203109 / Confirmed History of breast cancer / SNOMED CT 6769176655 / Confirmed History of malignant neoplasm of breast / SNOMED CT 3021269306 / Confirmed Hypertensive disorder / SNOMED CT 3752553484 / Confirmed Microscopic hematuria / SNOMED CT 451036668 / Confirmed Mixed incontinence / SNOMED CT 09217194 / Confirmed Rectocele / SNOMED CT 8170376709 / Confirmed Histories Past Medical History: No active or resolved past medical history items have been selected or recorded. Family History: Entire family history is negative. Procedure history: Cholecystectomy (01327179). Hip replacement (4606134964). Lumpectomy of left breast (2968002839). Rotator cuff (54914750). ROSA - Total abdominal hysterectomy (558684927). Appendectomy (892015882). Cataracts (0639184294). Cardiac ablation system (2143571507). Social History Social & Psychosocial Habits Tobacco [...] clinic note, risks/benefits previously discussed and documented Result Comment: Electronical ly Signed By: Paul VILLEGAS, Alfreda Villavicencio.br\Date and Time Signed: 09/19/24 08:28 EDT C URINE Observed: 09/12/2024 9:25 AM Status: F Source: [facility] Microbiology PROCEDURE: Urine Culture [R1] SOURCE: U [...] or tested, I=Intermediate, ESBL=Extended spectrum beta-lactamase, R=Resistant, TFG=Thymidine-dependent strain, ELLA=Beta-lactamase positive, AUBREY=mcg/m;(mg/L), S*=Predicted susceptible interp, [...] Locations R1: This test was performed at: [facility], [address] [place] [address], [address] , , Performed By: #### [id number] # ### [facility] [address] [place] [address] C URINE Observed: 09/12/2024 9:25 AM Status: F Source: [facility] Microbiology PROCEDURE: Urine Culture [R1] SOURCE: U [...] or tested, I=Intermediate, ESBL=Extended spectrum beta-lactamase, R=Resistant, TFG=Thymidine-dependent strain, ELLA=Beta-lactamase positive, AUBREY=mcg/m;(mg/L), S*=Predicted susceptible interp, [...] Locations R1: This test was performed at: [facility], [address] [place] [address], [facility]- , , Performed By: #### [id number] # ### [facility] [address] [place] [address] UROLOGY OFFICE/CLINIC NOTE Observed: 3:04 PM Status: F Source: [facility] Urology Office/Clinic Note Chief Complaint urinary incontinence [...] pending completion of cystoscopy w/ KML Ordered: 35631 Measure Post Void residual urine and/or bladder capacity by US- non- imaging Body Mass Index (BMI) documented 3008F Current [...] Urnls Dip Stick Auto w/o Microscopy POC 79885 2. Frequent UTI (N39.0: Urinary tract infection, site not specified) CT AP w/ Con 03/10/20 - a stone in a vein adjacent to the Rt ureter rather than a ureteral stone, may represent a phlebolith rather than a renal stone. C&S 04/14/22 >100k E Coli C&S 06/09/22 pansensitive >100k E Coli C&S 10/27/22 pansensitive >100k E Coli No documented UTIs for 2023 Typical UTI sxs include urine odor, increased urgency and dysuria States she has not any recent UTIs in the past year. Reports she stopped using Estrace cream 6 months ago. States she felt no benefit from cream. Discussed the benefits of topical estrogen to patient and that it has shown to reduce frequency of urinary tract infections by up to 70%. Patient states she would be willing to restart cream at this time. UA today suspicious for infection today. Will send for culture and tx based on results. Pt agreeable -See #1 -Restart Estrace cream 2x/weekly Ordered: 37669 Measure Post Void residual urine and/or bladder capacity by US- non- imaging Body Mass Index (BMI) documented 3008F Current [...] Urnls Dip Stick Auto w/o Microscopy POC 43440 3. Microscopic hematuria (R31.29: Other microscopic hematuria) Pt states she has hx of Microscopic Hematuria, states since high school, runs in the family, has had a hematuria workup including a scope, at [facility]. Denies gross hematuria. UA today shows moderate blood, small leuks. Pt previously has declined further workup, understanding potential risk of missed malignancy. Reviewed UA w/ pt, shows moderate blood and small leuks which hematuria could be due to possible urinary tract infection. Cannot rule out malignancy. Again, discussed further work up at today's visit with pt, which includes cysto/CTU. Patient is willing to undergo cystoscopy to determine candidacy for Botox so can also include as part of microhematuria work-up. Informed her that she would need CTU to evaluate upper tracts to complete work-up. She states she would be willing to complete CTU at future visit. -Send urine for micro and culture -Cystoscopy to be scheduled to determine Botox candidacy and as part of microhematuria work-up. See #1. -Will need CTU ordered at future visit to complete microhematuria work-up Ordered: 82448 Measure Post Void residual urine and/or bladder capacity by US- non- imaging Body Mass Index (BMI) documented 3008F Current [...] Urnls Dip Stick Auto w/o Microscopy POC 33572 4. Anticoagulated (Z79.01: care home (current) use of anticoagulants) Pt does take Eliquis for AFib. Elevated risk of periop complications Ordered: 74369 Measure Post Void residual urine and/or bladder capacity by US- non- imaging Body Mass Index (BMI) documented 3008F Current [...] Urnls Dip Stick Auto w/o Microscopy POC 58119 5. History of breast cancer (Z85.3: Personal history of malignant neoplasm of breast) Pt has a personal Hx of breast cancer. Hx of Lt Breast Lumpectomy. Contemporary studies show no risk of breast cancer and topical estrace cream. Ordered: 56182 Measure Post Void residual urine and/or bladder capacity by US- non- imaging Body Mass Index (BMI) documented 3008F Current [...] Urnls Dip Stick Auto w/o Microscopy POC 22868 6. Former smoker (Z87.891: Personal history of nicotine dependence) Smoked for 10 years, has not smoked for a very long time. Low risk factor for bladder cancer Ordered: Body Mass Index (BMI) documented 3008F Current [...] Recent) 3074F Urinalysis with Micro Urine Culture Orders: trospium, 20 mg = 1 tab(s), Oral, BID, # 180 tab(s), Refills(s) 3, Pharmacy: [facility], 165, cm, 05/27/23 8:54:00 EST, Height/Length Dosing, 77.5, kg, 05/27/23 8:54:00 EST, Weight Dosing Follow-up With When Contact Information Paul VILLEGAS, Alfreda Palacios, URL, URO Additional Instructions: F/U pending cystoscopy Patient Education Hematuria, Adult Overactive Bladder, Adult Problem List/Past Medical History Ongoing Anticoagulated Chronic atrial fibrillation Eczema Former smoker Frequent UTI History of breast cancer History of malignant neoplasm of breast Hypertensive disorder Microscopic hematuria Mixed incontinence Rectocele Historical No qualifying data Procedure/Surgical History Appendectomy, Cardiac ablation system, Cataracts, Cholecystectomy, Hip replacement, Lumpectomy of left breast, Rotator cuff, ROSA - Total abdominal hysterectomy. Medications Aleve atenolol 50 mg Tab, 50 mg= 1 tab(s) BACLOFEN 10 MG TABLET, 0 cycloSPORINE Opth 0.05% Emul, 1 drop(s) Eliquis 5 mg oral tablet flecainide 50 mg Tab, 50 mg= 1 tab(s) hydrochlorothiazide 25 mg Tab, Oral, Daily lisinopril 20 mg Tab Neuveria Vitamin OTC omeprazole 40 mg Cap-DR, 40 mg= 1 cap(s) Potassium Chloride (Eix-Sjhq-Ihk 10) 10 mEq oral tablet, extended release, 10 mEq= 1 tab(s) SUMAtriptan 25 mg Tab, 25 mg= 1 tab(s) traZODONE 50 mg Tab, 50 mg= 1 tab(s) trospium 60 mg oral capsule, extended release, 60 mg= 1 cap(s), Oral, Bedtime, 3 refills Allergies Ambien Levaquin Morphine Sulfate Ultram baclofen codeine penicillin Social History Tobacco Former smoker, quit more than 30 days ago Tobacco Use:. Never Smokeless Tobacco Use:. Cigarettes, Household tobacco concerns: No. Yes, 06/22/2024 Family History Family history is negative Immunizations Vaccine Date Status Comments influenza virus vaccine, inactivated 02/08/2024 Recorded influenza virus vaccine, inactivated 02/10/2023 Recorded influenza virus vaccine, inactivated 02/01/2022 Recorded SARSCoV2 mRNA(rbzumpbjo-crso-wqfung) vac 08/13/2021 Recorded SARS-CoV-2 (COVID-19) mRNA BNT-162b2 vax 01/29/2021 Recorded 2023-02-11: TPV70 SARS-CoV-2 (COVID-19) mRNA BNT-162b2 vax 06/20/2020 Recorded SARS-CoV-2 (COVID-19) mRNA BNT-162b2 vax 05/28/2020 Recorded SARS-CoV-2 (COVID-19) mRNA BNT-162b2 vax 05/18/2020 Recorded influenza virus vaccine, inactivated 01/27/2020 Recorded influenza virus vaccine, inactivated 01/20/2019 Recorded influenza virus vaccine, inactivated 03/09/2018 Recorded pneumococcal 23-valent vaccine 01/05/2018 Recorded influenza virus vaccine, inactivated 01/05/2018 Recorded influenza virus vaccine, inactivated 02/25/2017 Recorded pneumococcal 23-valent vaccine 02/17/2017 Recorded pneumococcal 13-valent vaccine 02/05/2017 Recorded influenza virus vaccine, inactivated 02/05/2017 Recorded Lab Results Ambulatory Point of Care Results Bilirubin Urine Dipstick: Negative (06/22/24 13:19:00) Blood Urine Dipstick: 2+ Moderate (06/22/24 13:19:00) Glucose Urine Dipstick: Negative (06/22/24 13:19:00) Ketones Urine Dipstick: Negative (06/22/24 13:19:00) Leukocytes Urine Dipstick: 1+ Small (06/22/24 13:19:00) Nitrite Urine Dipstick: Negative (06/22/24 13:19:00) Protein Urine Dipstick: Negative (06/22/24 13:19:00) Specific [place] Urine Dipstick: 1.010 (06/22/24 13:19:00) Urine Appearance Urine Dipstick: Clear (06/22/24 13:19:00) Urine Color Urine Dipstick: Yellow (06/22/24 13:19:00) Urobilinogen Urine Dipstick: Normal 0.2-1 EU/dl (06/22/24 13:19:00) pH Urine Dipstick: 5.5 (06/22/24 13:19:00) Result Comment: Electronical ly Signed By: Jacqui MOTT, Maria E\.br\Date and Time Signed: 06/22/24 15:08 EST PATIENT EDUCATION Observed: 06/22/2024 3:04 PM Status: C Source: [facility] Patient Education Obstetrics and Gynecology Overactive Bladder, [...] health care provider. General instructions ??? Take wknl-wwm-obwecyv and prescription medicines only as told by [...] your health care provider monitor your condition. ??? Keep all follow-up visits. This is important. Contact a health care provider if: ??? You have a fever or chills. ??? Your symptoms do not get better with treatment. ??? Your pain and discomfort get worse. ??? You have more frequent urges to urinate. Get help right away if: ??? You are not able to control your bladder. Summary ??? Overactive bladder refers to a condition in which a person has a sudden and frequent need to urinate. ??? Several conditions may lead to an overactive bladder. ??? Treatment for overactive bladder depends on the cause and severity of your condition. ??? Making lifestyle changes, doing Kegel exercises, keeping a log, and taking medicines can help with this condition. This information is not intended to replace advice given to you by your health care provider. Make sure you discuss any questions you have with your health care provider. Document Revised: 01/07/2021 Document Reviewed: 01/07/2021 [employer] Patient Education ? 2023 [employer].Urology Hematuria, Adult Hematuria is blood in the urine. Blood may be visible in the urine, or it may be identified with a test. This condition can be caused by infections of the bladder, urethra, kidney, or prostate. Other possible causes include: ??? Kidney stones. ??? Cancer of the urinary tract. ??? Too much calcium in the urine. ??? Conditions that are passed from parent to child (inherited conditions). ??? Exercise that requires a lot of energy. [...] cancers. Follow these instructions at home: Medicines ??? Take qohk-xmd-lirdjrt and prescription medicines only as told by your health care provider. ??? If you were prescribed an antibiotic medicine, take it as told by your health care provider. Do not stop taking the antibiotic even if you start to feel better. Eating and drinking ??? Drink enough fluid to keep your urine pale yellow. It is recommended that you drink 3?4 quarts (2.8?3.8 L) a day. If you have been diagnosed with an infection, drinking cranberry juice in addition to large amounts of water is recommended. ??? Avoid caffeine, tea, and carbonated beverages. These tend to irritate the bladder. ??? Avoid alcohol because it may irritate the prostate (in males). General instructions ??? If you have been diagnosed with a kidney stone, follow your health care provider's instructions about straining your urine to catch the stone. ??? Empty your bladder often. Avoid holding urine for long periods of time. ??? If you are female: ? After a bowel movement, wipe from front to back and use each piece of toilet paper only once. ? Empty your bladder before and after sex. ??? Pay attention to any changes in your symptoms. Tell your health care provider about any changes or any new symptoms. ??? It is up to you to get the results of any tests. Ask your health care provider, or the department that is doing the test, when your results will be ready. ??? Keep all follow-up visits. This is important. Contact a health care provider if: ??? You develop back pain. ??? You have a fever or chills. ??? You have nausea or vomiting. ??? Your symptoms do not improve after 3 days. ??? Your symptoms get worse. Get help right away if: ??? You develop severe vomiting and are unable to take medicine without vomiting. ??? You develop severe pain in your back or abdomen even though you are taking medicine. ??? You pass a large amount of blood in your urine. ??? You pass blood clots in your urine. ??? You feel very weak or like you might faint. ??? You faint. Summary ??? Hematuria is blood in the urine. It has many possible causes. ??? It is very important that you tell your health care provider about any blood in your urine, even if it is painless or the blood stops without treatment. ??? Take zbyc-jkd-ywzynjt and prescription medicines only as told by your health care provider. ??? Drink enough fluid to keep your urine pale yellow. This information is not intended to replace advice given to you by your health care provider. Make sure you discuss any questions you have with your health care provider. Document Revised: 12/19/2020 Document Reviewed: 12/19/2020 [employer] Patient Education ? 2023 [employer]. AMBULATORY VISIT SUMMARY Observed: 06/22 2:55 PM Status: F Source: [facility] Ambulatory Visit Summary BETTIE BURNS :1945 Visit [...] 40 mg Cap-DR) potassium chloride (Potassium Chloride (Rup-Vpdu-Ncc 10) 10 mEq oral tablet, extended release) [...] 1 Capsules Unchanged potassium chloride (Potassium Chloride (Uqu-Gzpc-Rzk 10) 10 mEq oral tablet, extended release) [...] you for choosing us for your care. URINALYSIS WITH MICRO Collected: 2024 1:48 PM Status: F Source: [facility] TYPE CODE TESTS RESULT OUT OF RANGE REFERENCE UNITS LAB 9194-2([facility]) CLASS:TYPE:PT: URINE COLLECTION METHOD:NOM:* Random Urine Normal LAB 70840-5([facility]) COLOR:TYPE:PT: URINE:NOM:AUTO Light-Yello w Normal Yellow Result Comment: Microscopic readings are only performed on those samples that meet specific criteria set forth by [facility]. LAB 15386-7([facility]) CLARITY:TYPE:P T:URINE:NOM: Clear Normal Clear LAB 5811-5([facility]) SPECIFIC GRAVITY:RDEN:P T:URINE:SEMIQN :TEST STRIP 1.013 Unknown 1.005-1.030 LAB 5803-2(INC) PH:LSCNC:PT:UR INE:SEMIQN:KRISTOPHER T STRIP 6.0 Unknown 5.0-9.0 LAB 70330-4(LOINC) PROTEIN:PRTHR: PT:URINE:ORD:T EST STRIP Negative Normal Negative mg/dL LAB 19197-3(LOINC) GLUCOSE:PRTHR: PT:URINE:ORD:T EST STRIP Negative Normal Negative mg/dL LAB 79104-5(LOINC) KETONES:PRTHR: PT:URINE:ORD:T EST STRIP.AUTOMATE D Negative Normal Negative mg/dL LAB 61770-2(LOINC) BILIRUBIN:PRTH R:PT:URINE:ORD :TEST STRIP.AUTOMATE D Negative Normal Negative mg/dL LAB 14962-1(LOINC) HEMOGLOBIN:MCN C:PT:URINE:JUANJOSE IQN:TEST STRIP.AUTOMATE D 2+ Abnormal Negative LAB 52903-0(LOINC) NITRITE:PRTHR: PT:URINE:ORD:T EST STRIP.AUTOMATE D Negative Normal Negative mg/dL LAB 35686-0(LOINC) UROBILINOGEN:M CNC:PT:URINE:S EMIQN:TEST STRIP Negative Normal Negative mg/dL LAB 16127-8(LOINC) LEUKOCYTE ESTERASE:PRTHR :PT:URINE:ORD: TEST STRIP.AUTOMATE D 250 Felipe/uL Abnormal Negative LAB 88492-9(LOINC) LEUKOCYTES:MARCIAL IC:PT:URINE SED:QN:AUTOMAT ED COUNT 31-75 Abnormal 0-5 LAB 05550-8(LOINC) ERYTHROCYTES:P RTHR:PT:URINE SED:ORD:MICROS COPY.LIGHT 4-20 Abnormal 0-3 CD:77255 88685 LAB 81232-0(LOINC) EPITHELIAL CELLS.SQUAMOUS :NARIC:PT:URIN E SED:QN:AUTOMAT ED COUNT 0-2 Unknown CD:17372 82400 LAB 11671-2(LOINC) BACTERIA:PRTHR :PT:URINE:ORD: AUTOMATED 1+ Abnormal Trace /HPF LAB 60953-2(LOINC) MUCUS:PRTHR:PT :URINE:ORD:AUT OMATED Negative Normal Negative Performed By: #### [id number] #### [facility] [address] [place] [address] 00684 C URINE Observed: 06/22/2024 1:48 PM Status: F Source: [facility] Microbiology PROCEDURE: Urine Culture [R1] SOURCE: U Random BODY SITE: COLLECTED DATE/TIME: 06/22/2024 13:48 EST RECEIVED DATE/TIME: 06/22/2024 18:48 EST START DATE/TIME: 06/22/2024 18:48 EST FREE TEXT SOURCE: Mari aE Osman PA-C, PA-C, Maria E FINAL REPORTS Final Report [] Verified Date/Time: 06/24/2024 10:59 EST No growth at 2 days. Performing Locations R1: This test was performed at: [facility], [address] [place] [address], [address] , , Performed By: #### [id number] # ### [facility] [address] [place] [address] 70616 C URINE Observed: 06/22/2024 1:48 PM Status: F Source: [facility] Microbiology PROCEDURE: Urine Culture [R1] SOURCE: U Random BODY SITE: COLLECTED DATE/TIME: 06/22/2024 13:48 EST RECEIVED DATE/TIME: 06/22/2024 18:48 EST START DATE/TIME: 06/22/2024 18:48 EST FREE TEXT SOURCE: Maria E Osman PA-C, PA-C, Maria E FINAL REPORTS Final Report [] Verified Date/Time: 06/24/2024 10:59 EST No growth at 2 days. Performing Locations R1: This test was performed at: [facility], [address] [place] [address], [facility]- , , Performed By: #### [id number] # ### [facility] [address] [place] [address] ALLERGIES DATE TYPE / CODE NAME / CODE REACTION SEVERITY SOURCE 07/03/2022 Drug Class/922403205 (SNOMED CT) ADHESIVE [facility] 07/03/2022 DRUG/862278459( SNOMED CT) PENICILLIN G BENZATHIN,PROCAIN [facility] 07/03/2022 DRUG INGREDI/8371692 03(SNOMED CT) ROFECOXIB [facility] 07/03/2022 DRUG INGREDI/1361591 03(SNOMED CT) SULFADIAZINE [facility] 07/03/2022 DRUG INGREDI/4697822 03(SNOMED CT) ZOLPIDEM [facility] 07/13/2019 DRUG INGREDI/1554243 03(SNOMED CT) TRAMADOL Itching [facility] 03/19/2017 DRUG INGREDI/8116218 03(SNOMED CT) BACLOFEN UNKNOWN [facility] 03/19/2017 DRUG INGREDI/4627345 03(SNOMED CT) CODEINE UNKNOWN [facility] 03/19/2017 DRUG/713944626( SNOMED CT) HYDROCODONE-ACETAMINOP HEN UNKNOWN [facility] 03/19/2017 DRUG INGREDI/4316833 03(SNOMED CT) LEVOFLOXACIN UNKNOWN [facility] 03/19/2017 DRUG INGREDI/5141326 03(SNOMED CT) CODEINE Itching [facility] 03/19/2017 DRUG INGREDI/9379166 03(SNOMED CT) LEVOFLOXACIN Itching [facility] 03/19/2017 DRUG INGREDI/9813922 03(SNOMED CT) BACLOFEN Itching [facility] 03/19/2017 DRUG/704145562( SNOMED CT) HYDROCODONE-ACETAMINOP HEN Itching Low [facility] 11/30/2016 DRUG INGREDI/4912739 03(SNOMED CT) MORPHINE [facility] 12/03/2015 DRUG INGREDI/1859738 03(SNOMED CT) MORPHINE [facility] 12/03/2015 DRUG INGREDI/0743414 03(SNOMED CT) OXYCODONE [facility] 12/03/2015 Drug Class/451273191 (SNOMED CT) PENICILLINS [facility] 12/03/2015 Drug Class/042211597 (SNOMED CT) PENICILLINS [facility] /959966244(SN OMED CT) codeine [facility] /649271275(SN OMED CT) penicillin [facility] /497318097(SN OMED CT) baclofen [facility] /246552573(SN OMED CT) Ambien [facility] /287898152(SN OMED CT) Morphine Sulfate [facility] MAKAYLA057961414(SN OMED CT) Ultram [facility] /903564161(SN OMED CT) Levaquin [facility] ENCOUNTERS ADMIT/DISCHARGE ACCOUNT NUMBER ADMITTING ENCOUNTER CLASS LOCATION SOURCE 01/25/2025/01/26/20 [id number] Maria E [facility]DIANA SMITH [facility] 01/25/2025/01/26/20 [id number] Ambulatory CORNELIA Saldana lding:CORNELIA Frey m: CD:[id number] [facility] 12/27/2024/12/28/19 [id number] Ambulatory Building:NO [facility] 12/18/2024/12/20/19 [id number] [facility] EDBed[facility] 12 [facility] 12/05/2024/12/06/19 [id number] Ambulatory [place] [facility] [facility] 11/09/2024 [id number] Ambulatory Building:PF M_LAB [facility] 11/08/2024 [id number] Ambulatory Building:PF M_LAB [facility] 11/08/2024/11/09/19 [id number] Ambulatory Buildin 14 [facility] 10/31/2024/11/01/19 [id number] Ambulatory PM [facility]:PM [facility] 10/26/2024/10/27/19 [id number] Ambulatory EU [facility] [place]:EU [facility]: CD:[id number] [address] [place] [address] 09/19/2024/09/20/19 [id number] Alfreda Miller Ambulatory [facility]:FT.[facility] 09/12/2024/09/13/19 [id number] Jean Pierre MARTE Ambulatory [facility]:FT LAB [facility] 09/12/2024/09/13/19 [id number] Ambulatory EU [facility]:EU [facility] 08/22/2024/08/23/19 [id number] Ambulatory PM [facility]:PM [facility] 07/20/2024 [id number] Ambulatory EU [place]:EU [facility] 07/14/2024 [id number] Ambulatory Buildin [facility] 07/14/2024 [id number] Ambulatory Buildin [facility] 06/22/2024 [id number] Maria E Osman Ambulatory [facility] g:FT LAB [facility] 06/22/2024/06/22/19 [id number] Maria E Osman Ambulatory FTBuildin g:FT LAB [facility] 06/22/2024/06/22/19 25 [id number] Ambulatory EU Les lding:CORNELIA Frey m: Exam 1 [facility] 04/04/2024/04/04/20 24 [id number] Ambulatory PM Les lding:PM [place] [facility] PAYERS ENCOUNTER GUARANTOR PAYER SUBSCRIBER SOURCE 01/25/2025 BETTIE [facility]URNSD[facility] [place]Tel: ~~(4 1 (HP) Primary Insurance:AETNAPolicy Number: [id number] Date:6967-53-60QH [address] [place] [address]NI: BETTIE MCGHEE [facility] 01/25/2025 BETTIE BURNSDOB: [facility] [place] 270Tel: ~~(4 1 (HP) Primary Insurance:AETNAPolicy Number: [id number] Date:4933-60-98IG [address] [place] [address]WB: BETTIE MCGHEE [facility] 12/27/2024 BETTIE MONTEZEYDOB: [address] [address]Kjj: (HP) Primary Insurance:AETNA MEDICARE ADVANTAGEPolicy Number: [id number] Date:2021-05-04 BETTIE MONTEZEYDOB: [id number] [address] [address] [facility] 12/18/2024 Primary Insurance:AETNA MEDICARE PPOPolicy Number: [id number] Date:9406-95-55Owkk Name:Oliverio BETTIE BURNSDOB: [id number] [place] [address] 12/05/2024 Bettie BurnsDOB: [address] [place] [address]Ivz: (HP) Primary Insurance:AetnaPolicy Number: Effective Date:6938-28-37Itys Name:MEDP Deanne Potter [id number] Snyder [address]KG: Bettie BurnsDOB: [id number] [place] [address]Pzc: (HP) [facility] 11/09/2024 BETTIE BURNSDOB: [address], [place] [address]Rio: (HP) Primary Insurance:AETNA MEDICARE PLAN (PPO)Policy Number: [id number] Date:2021-05-04 BETTIE BURNSDOB: [id number] [place] [address], [place] [address]Sjt: (HP) [facility] 11/08/2024 BETTIE BURNSDOB: [address] [place] [address]Nug: (HP) Primary Insurance:AETNA MEDICARE PLAN (PPO)Policy Number: [id number] Date:2021-05-04 BETTIE BURNSDOB: [id number] [address] [place] [address]Qnw: (HP) [facility] 11/08/2024 BETTIE BURNSDOB: [address], [place] [address]Grb: (HP) Primary Insurance:AETNA MEDICARE PLAN (PPO)Policy Number: [id number] Date:2021-05-04 BETTIE BURNSDOB: [id number] [address], [place] [address]Cxh: (HP) [facility] 10/31/2024 Bettie BurnsDOB: [address] [place] [address]Gfp: (HP) Primary Insurance:AetnaPolicy Number: Effective Date:7289-78-34Yzxp Name:MEDP [address] PATRICIO Villafuerte [address]KG: Bettie MontezeyDOB: [id number] [place] [address]Dpb: (HP) [facility] 10/26/2024 BETTIE BURNSDOB: [facility] 270Tel: ~~(4 1 (HP) Primary Insurance:AETNAPolicy Number: [id number] Date:5447-10-88IY [address] [place] [address]AY: BETTIE MCGHEE [facility] 09/19/2024 BETTIE BURNSDOB: [facility] 270Tel: ~~(4 1 (HP) Primary Insurance:AETNAPolicy Number: [id number] Date:6723-35-40WQ [address] [place] [address]ET: BETTIE MCGHEE [facility] 09/12/2024 BETTIE BURNSDOB: [facility] [place] 270Tel: ~~(4 1 (HP) Primary Insurance:AETNAPolicy Number: [id number] Date:6597-36-47LD [address] [address]DF: BETTIE MCGHEE [facility] 09/12/2024 BETTIE BURNSDOB: [facility] 270Tel: ~~(4 1 (HP) Primary Insurance:AETNAPolicy Number: [id number] Date:5799-44-48QN [address] [place] [address]IX: BETTIE MCGHEE [facility] 08/22/2024 Bettie PintoB: [address] [address]Zir: (HP) Primary Insurance:AetnaPolicy Number: Effective Date:7915-77-10Tfmq Name:MEDP [address] [place] [address]PI: Bettie PintoB: [id number] [address] [address]Bjx: (HP) [facility] 07/20/2024 BETTIE PINTOB: [place] [address]Tel: ~~(4 1 (HP) Primary Insurance:AETNAPolicy Number: [id number] Date:2147-14-97[address] [place] [address]EL: BETTIE MCGHEE [facility] 07/14/2024 BETTIE PINTOB: [address] [address]Aoi: ~(41 9 (HP) Primary Insurance:MEDICARE AETNA PPOPolicy Number: [id number] Date:6758-74-55Dyws Name:ALPHONSO PINTOB: [id number] [address] [address]Pjh: (HP) [facility] 07/14/2024 BETTIE PINTOB: [address] [address]Jwp: ~(41 9 (HP) Primary Insurance:MEDICARE AETNA PPOPolicy Number: [id number] Date:9674-12-62Uwcp Name:ALPHONSO BURNETT: [id number] [address] [address]Qcv: (HP) [facility] 06/22/2024 BETTIE PINTOB: [facility] 270Tel: ~~(4 1 (HP) Primary Insurance:AETNAPolicy Number: [id number] Date:0028-28-89[address] PATRICIO VILLAFUERTE [address]VQ: BETTIE MCGHEE [facility] 06/22/2024 BETTIE PINTOB: [facility] 270Tel: ~~(4 1 (HP) Primary Insurance:AETNAPolicy Number: [id number] Date:7171-11-17LD [address] PATRICIO VILLAFUERTE [address]RM: BETTIE MCGHEE [facility] 04/04/2024 Bettie PintoB: [address] [address]Vcq: (HP) Primary Insurance:AetnaPolicy Number: Effective Date:9779-63-79Aoxn Name:COMP [address] [place] [address]YI: Bettie PintoB: [id number] [place] [address]Uzl: (HP) [facility]
[2025-01-29] VITALS (21 sets, daily range): BP systolic 84–138; BP diastolic 38–72; PULSE 49–84; TEMP 36.6; O2SAT 88–100; BMI 28.1
--- NOTE | 2025-01-29 14:44 | ECG_ITS ---
[facility] Test Date: 2025-01-29 Pat Name: NGUYEN MARQUEZ Department: Room: - Gender: Female Trimmer Meat: : 1945 Requested By: 1030 Order Number: [id number] Reading MD: JASON FRAZIER Measurements Intervals [place] Rate: 50 P: 30 WA: 272 QRS: -20 QRSD: 110 T: 116 QT: 482 QTc: 457 Interpretive Statements 1100 Sinus bradycardia with Sinus arrhythmia 2231 First degree AV block 2440 Incomplete right bundle branch block 5234 Left ventricular hypertrophy with repolarization abnormality Poor R wave progression cannot rule out anterior infarct age indeterminate 8102 Low QRS voltage in chest leads 9150 abnormal ECG Compared to ECG 06/09/2022 11:27:39 Left ventricular hypertrophy now present Early repolarization now present ST (T wave) deviation no longer present Poor R wave progression cannot rule out anterior infarct age indeterminate Electronically Signed On 01-30-2025 15:17:55 EDT by JASON FRAZIER
--- OUTSIDE RECORDS SUMMARY | 2025-01-29 14:44 | XMS_ITS | Clinical Summary ---
Author Organization [facility] Address [address], [address] [place] [address] Care Team Providers Care Wet Plant Operator Name Role Phone Marine Glass MD Primary Care Provider [phone] Allergies Active Allergy Reactions Criticality Noted Date [...] of Treatment Not on file Care Teams Wet Plant Operator Relationship Specialty Start Date End Date Marine Glass MD PCP - General Family Medicine 10/19/18
--- OUTSIDE RECORDS SUMMARY | 2025-01-29 14:44 | XMS_ITS | Encounter Summary ---
Author Organization [facility] Address [address] [place] [address] Care Team Providers Care Vacation Sales Advisor Name Role Phone Marine Glass MD Primary Care Provider [phone] Source Comments In the event this information is protected by the Federal Confidentiality of Alcohol and Drug AbusePatient Records regulations: The Federal rules restrict any use of the information to criminally investigate or prosecute any alcohol or drug abuse patient.[facility] Encounter Details Date Type Department Care Team (Late st Contact Info) Description 12/21/2024 Results Follow-Up [facility] [address] [place], [place] [id number] Sara White [facility] Social History Tobacco Use Types Packs/Day Years Used Date Smoking Tobacco: Former Cigarettes 1 20 0 12/05/1970 - 12/05/1990 Smokeless Tobacco: Never Alcohol Use Standard Drinks/Week Comments Yes 0 (1 standard drink = 0.6 oz pur e alcohol) PHQ-2 Answer Date Recorded PHQ-2 score 0 10/07/2019 Area Deprivation Index Answer Date Kike rded National Score (1-100), lower number is lower ri sk 63 12/19/2024 State Score (1-10), lower number is lower risk 4 12/19/2024 Data from: https://www.neighborhoodatlas.medicine.[facility].edu/. Last address used for calculation [phone] 12/19/2024 Comments No Sex and Gender Information Value Date Recorded Sex Assigned at Not on file Legal Sex Female 8:44 AM EST Gender Identity Not on file Sexual Orientation Not on file documented as of this encounter Plan of Treatment Not on file documented as of this encounter Visit Diagnoses Not on filedocumented in this encounter Care Teams Vacation Sales Advisor Relationship Specialty Start Date End Date Marine Glass MD [address] [place] [address] PCP - General Family Medicine 11/26/15 documented as of this encounter
[2025-01-29 15:05] LABS: Hematocrit 40.4 % (36.0-48.0); Hemoglobin 13.7 g/dL (12.0-16.0); Immature Granulocytes Abs Auto 0.02 10^3/uL (0.00-0.03); Immature Granulocytes Pct Auto 0.3 % (0.0-0.5); Lymphocytes Absolute Auto 2.9 10^3/uL (1.2-3.8); Mean Corpuscular HGB Conc 33.9 g/dL (29.9-35.2); Mean Corpuscular Hemoglobin 32.8 pg (26.7-34.0); Mean Corpuscular Volume 96.7 fL (81.0-99.0); Platelet Count 273 10^3/uL (150-450); Red Blood Count 4.18 10^6/uL (4.20-5.40); White Blood Count 7.7 10^3/uL (4.0-11.0)
--- NOTE | 2025-01-29 15:06 | ED.GENADUL1 ---
HPI HPI - General Adult General Chief complaint: Syncope Stated complaint: SYNCOPE Time Seen by Provider: 01/29/25 14:57 Source: family Mode of arrival: ambulance Limitations: no limitations History of Present Illness HPI narrative: 79-year-old female presented to the emergency department because of a syncopal or near syncopal episode. The patient has been feeling well for a few days and is being treated with Macrobid for a UTI. She has been tired recently. She went outside to mow the grass today and the patient states she got overheated and dehydrated and she has not been drinking enough water. She was feeling dizzy so she went to going inside but instead she was feeling more dizzy and she laid down in the grass in the shade. The patient's daughter states that the patient was passed out completely. The patient states she feels a little bit better now but feels tired. Family states that she is thinking normally. She does not complain of fever or vomiting or chest pain or palpitations. Related Data Home Medications ?Medication ?Instructions ?Recorded ?Confirmed apixaban 5 mg tablet (Eliquis) 5 mg PO BID 10/28/22 12/05/24 atenolol 50 mg tablet 75 mg PO DAILY 10/28/22 12/05/24 hydrochlorothiazide 25 mg tablet 25 mg PO DAILY 10/28/22 12/05/24 lisinopril 20 mg tablet 20 mg PO DAILY 10/28/22 12/05/24 neuveria vitamin DAILY 10/28/22 trospium 20 mg tablet 20 mg PO Q12H 04/02/23 12/05/24 aspirin 500 mg tablet (Mckenna 500 mg PO DAILY PRN pain 11/04/23 12/05/24 Advanced) cyclosporine 0.05 % eye drops in a drp ophthalmic (eye) 11/04/23 dropperette omeprazole 40 mg capsule,delayed 40 mg PO DAILY 11/04/23 12/05/24 release vit C 250 mg-vit E 90 mg-zinc 40 1 tab PO BID 11/04/23 12/05/24 mg-copper 1 [id number] capsule (PreserVision AREDS-2) flecainide 50 mg tablet mg 12/14/23 potassium chloride 10 mEq meq PO 12/14/23 tablet,extended release magnesium 200 mg tablet 200 mg PO DAILY 10/31/24 12/05/24 methocarbamol 500 mg tablet 1,000 mg PO BID PRN spasms 11/17/24 12/05/24 Previous Rx's ?Medication ?Instructions ?Recorded methylprednisolone 4 mg tablets in 4 mg PO DAILY #21 ea 10/26/24 a dose pack (Medrol (Ryan)) Allergies Allergy/AdvReac Type Severity Reaction Status Date / Time acetaminophen (From Vicodin) Allergy Severe itching Verified 12/05/24 07:22 hydrocodone (From Vicodin) Allergy Severe itching Verified 12/05/24 07:22 codeine Allergy Unknown Hives Verified 12/05/24 07:22 levofloxacin (From Levaquin) Allergy Unknown uticaria Verified 12/05/24 07:22 morphine Allergy Unknown uticaria Verified 12/05/24 07:22 Penicillins Allergy Unknown uticaria Verified 12/05/24 07:22 tramadol Allergy Unknown uticaria Verified 12/05/24 07:22 cyclobenzaprine Allergy Rash Verified 12/05/24 07:22 Opioid HPI Opioid Management Most Recent Opioid Data: Last Pain Scale 4 08/22/24, 06:49 Review of Systems ROS Narrative A ten point review of systems is negative except as noted above. [facility] Medical History Neck pain ?M54.2 - Cervicalgia (ICD-10) Upper back pain ?M54.9 - Dorsalgia, unspecified (ICD-10) Low back pain ?M54.50 - Low back pain, unspecified (ICD-10) Osteoarthritis ?M19.90 - Unspecified osteoarthritis, unspecified site (ICD-10) H/O malignant neoplasm of breast ?Z85.3 - Personal history of malignant neoplasm of breast (ICD-10) Hearing deficit ?H91.90 - Unspecified hearing loss, unspecified ear (ICD-10) Former smoker ?Z87.891 - Personal history of nicotine dependence (ICD-10) Hypertension ?I10 - Essential (primary) hypertension (ICD-10) Atrial fibrillation ?I48.91 - Unspecified atrial fibrillation (ICD-10) Cataract ?H26.9 - Unspecified cataract (ICD-10) Surgical History Status post hip surgery ?Z98.890 - Other specified postprocedural states (ICD-10) H/O total hip arthroplasty ?Z96.649 - Presence of unspecified artificial hip joint (ICD-10) H/O cardiac catheterization ?Z98.890 - Other specified postprocedural states (ICD-10) History of cholecystectomy ?Z90.49 - Acquired absence of other specified parts of digestive tract (ICD-10) H/O: hysterectomy ?Z90.710 - Acquired absence of both cervix and uterus (ICD-10) H/O foot surgery ?Z98.890 - Other specified postprocedural states (ICD-10) H/O eye surgery ?Z98.890 - Other specified postprocedural states (ICD-10) H/O shoulder surgery ?Z98.890 - Other specified postprocedural states (ICD-10) H/O breast surgery ?Z98.890 - Other specified postprocedural states (ICD-10) Social History Smoking status: Never smoker Little interest or pleasure in doing things: not at all Feeling down, depressed, or hopeless: not at all Exam Narrative Exam Narrative: Nurses note and vital signs reviewed and patient is not hypoxic. General:The patient appears no acute distress Skin:Warm, dry, no pallor noted.There is no rash noted. Head:Normocephalic, atraumatic Eye: Normal conjunctiva, no drainage Ears, Nose, Mouth, and Throat: oral mucosa is lightly dry. Nares patent. Cardiovascular:Regular Rate and Rhythm Respiratory:Patient is in no distress, no accessory muscle use, lungs are clear to auscultation, no wheezing, rales or rhonchi Back:non-tender GI: Soft and nontender Musculoskeletal: The patient has no evidence of calf tenderness, no pitting edema, symmetrical pulses noted bilaterally Neurological:A&O, normal speech: Moves all 4 extremities well Psychiatric:Cooperative Constitutional Vital Signs, click to edit/add: Last Vital Signs Temp 97.9 F 01/29/25 14:37 Pulse 84 01/29/25 16:30 Resp 19 01/29/25 16:30 BP 131/48 L 01/29/25 16:01 Pulse Ox 96 01/29/25 16:20 O2 Del Method Room Air 01/29/25 14:52 Course Vital Signs Vital signs: Vital Signs Temperature 97.9 F 01/29/25 14:37 Pulse Rate 51 L 01/29/25 14:37 Respiratory Rate 20 01/29/25 14:37 Blood Pressure 116/59 01/29/25 14:37 Pulse Oximetry 94 L 01/29/25 14:37 Oxygen Delivery Method Room Air 01/29/25 14:37 Temperature 97.9 F 01/29/25 14:37 Pulse Rate 84 01/29/25 16:30 Respiratory Rate 19 01/29/25 16:30 Blood Pressure 131/48 L 01/29/25 16:01 Pulse Oximetry 96 01/29/25 16:20 Oxygen Delivery Method Room Air 01/29/25 14:52 Medical Decision Making MDM Narrative Medical decision making narrative: My clinical impression is that she has dehydration. She was given IV fluids and feels much better now. She is ambulatory around the department without difficulty. She wants to go home and her family is comfortable taking her home. Treatment diagnosis and follow-up were discussed with the patient and her family. Differential Diagnosis Differential Diagnosis: Dehydration, acute kidney injury, electrolyte imbalance Lab Data Lab results reviewed: Yes I reviewed the patient's lab results Labs: Lab Results 01/29/25 01/29/25 Range/Units 14:49 16:30 WBC 7.7 (4.0-11.0) 10^3/uL RBC 4.18 L (4.20-5.40) 10^6/uL Hgb 13.7 (12.0-16.0) g/dL Hct 40.4 (36.0-48.0) % MCV 96.7 (81.0-99.0) fL MCH 32.8 (26.7-34.0) pg MCHC 33.9 (29.9-35.2) g/dL RDW 11.8 (11.0-15.0) % Plt Count 273 (150-450) 10^3/uL MPV 9.0 L (9.5-13.5) fL Neut % (Auto) 45.8 (43.0-75.0) % Lymph % (Auto) 38.2 (20.5-60.0) % [place] % (Auto) 9.5 (1.7-12.0) % Eos % (Auto) 5.3 (0.9-7.0) % Baso % (Auto) 0.9 (0.2-2.0) % Neut # (Auto) 3.5 (1.4-6.5) 10^3/uL Lymph # (Auto) 2.9 (1.2-3.8) 10^3/uL [place] # (Auto) 0.7 (0.3-0.8) 10^3/uL Eos # (Auto) 0.4 (0.0-0.7) 10^3/uL Baso # (Auto) 0.1 (0.0-0.1) 10^3/uL Abs Immat Gran (auto) 0.02 (0.00-0.03) 10^3/uL Imm/Tot Granulo (auto) 0.3 (0.0-0.5) % Sodium 142 (136-145) mmol/L Potassium 3.2 L (3.5-5.1) mmol/L Chloride 100 (98-107) mmol/L Carbon Dioxide 28.3 (21.0-32.0) mmol/L Anion Gap 16.9 BUN 28.0 H (7.0-18.0) mg/dL Creatinine 1.63 H (0.55-1.02) mg/dL Est GFR ( Amer) 37 L (>=60 mL/min/1.73m^2) Est GFR (Non-Af Amer) 31 L (>=60 mL/min/1.73m^2) BUN/Creatinine Ratio 17.2 Glucose 154 H (74-106) mg/dL Calcium 9.7 (8.5-10.1) mg/dL Total Bilirubin 0.7 (0.2-1.0) mg/dL AST 16 (15-37) U/L ALT 16 (14-59) U/L Alkaline Phosphatase 63 (46-116) U/L Troponin I High Sens 9.8 (4.0-51.3) pg/mL Total Protein 7.9 (6.4-8.2) g/dL Albumin 3.6 (3.4-5.0) g/dL Globulin 4.3 g/dL Albumin/Globulin Ratio 0.8 Urine Color Yellow (YELLOW) Urine Clarity Clear (CLEAR) Urine pH 5.5 (5.0-9.0) Ur Specific [place] 1.020 (1.005-1.025) Urine Protein Negative (NEG/TRACE) mg/dL Urine Glucose (UA) Negative (NEGATIVE) mg/dL Urine Ketones Negative (NEGATIVE) mg/dL Urine Occult Blood Negative (NEGATIVE) Urine Nitrite Negative (NEGATIVE) Urine Bilirubin Negative (NEGATIVE) Urine Urobilinogen 0.2 (0.2-1.0) EU/dL Ur Leukocyte Esterase Negative (NEGATIVE) Urine RBC 2-5 A (0-2) #/HPF Urine WBC 2-5 A (NONE SEEN) #/HPF Ur Squamous Epith Cells Few A (NONE/RARE) #/LPF Urine Crystals None seen (None Seen) #/HPF Urine Bacteria Trace A (NONE SEEN) #/HPF Urine Casts None seen (NONE SEEN) #/LPF Urine Mucus Trace A (NONE SEEN) ECG Data Attestation: I personally reviewed and interpreted this ECG as follows: (EKG on my interpretation shows sinus rhythm with first-degree block and a rate of 50) Discharge Plan Discharge Chief Complaint: Syncope Clinical Impression: Dehydration Patient Disposition: Home, Self-Care Time of Disposition Decision: 17:04 Condition: Good Mode of Transportation: Private Vehicle Prescriptions / Home Meds: No Action trospium 20 mg tablet 20 mg PO Q12H omeprazole 40 mg capsule,delayed release(DR/EC) 40 mg PO DAILY cyclosporine 0.05 % dropperette OPHTHALMIC (EYE) Mckenna Advanced 500 mg tablet 500 mg PO DAILY PRN (Reason: pain) PreserVision AREDS-2 250-90-40-1 mg capsule 1 tab PO BID methylprednisolone [Medrol (Ryan)] 4 mg tablets,dose pack 4 mg PO DAILY Qty: 21 0RF Rx Instructions: take as directed magnesium 200 mg tablet 200 mg PO DAILY lisinopril 20 mg tablet 20 mg PO DAILY atenolol 50 mg tablet 75 mg PO DAILY Eliquis 5 mg tablet 5 mg PO BID hydrochlorothiazide 25 mg tablet 25 mg PO DAILY neuveria vitamin DAILY flecainide 50 mg tablet potassium chloride 10 mEq tablet extended release PO methocarbamol 500 mg tablet 1,000 mg PO BID PRN (Reason: spasms) Rx Instructions: 1-2 TABS DAILY Print Language: Iraqi Instructions: Dehydration (ED) Referrals: Marine Glass MD [Primary Care Provider, Family Practice] - 1 week
[2025-01-29 15:20] LABS: Alanine Aminotransferase 16 U/L (14-59); Albumin Globulin Ratio 0.8; Albumin Level 3.6 g/dL (3.4-5.0); Alkaline Phosphatase 63 U/L (46-116); Anion Gap 16.9; Aspartate Amino Transferase 16 U/L (15-37); Blood Urea Nitrogen 28.0 mg/dL (7.0-18.0); Calcium 9.7 mg/dL (8.5-10.1); Carbon Dioxide 28.3 mmol/L (21.0-32.0); Chloride 100 mmol/L (98-107); Estimated GFR (African America 37 (>=60 mL/min/1.73m^2); Estimated GFR (Non-African Ame 31 (>=60 mL/min/1.73m^2); Globulin 4.3 g/dL; Glucose 154 mg/dL (74-106); Potassium 3.2 mmol/L (3.5-5.1); Sodium 142 mmol/L (136-145); Total Protein 7.9 g/dL (6.4-8.2)
[2025-01-29] MEDS: 0.9 % SODIUM CHLORIDE 1,000 ML 999 ML IV (15:23)
[2025-01-29 16:35] LABS: Glucose Urine UA NEGATIVE (NEGATIVE)
[2025-01-29 16:49] LABS: Cast Seen? NONE SEEN #/LPF (NONE SEEN); Crystals Seen? None Seen #/HPF (None Seen)
== END 2025-01-29 17:14 | disposition home or self-care (01) ==
PROVIDERS: Emergency Provider Emergency Medicine; PCP Family Medicine
DX: E86.0 Dehydration (principal); Z87.440 Personal history of urinary (tract) infections
CPT/HCPCS: 36415; 80053; 81001; 84484; 85025; 93005; 96360; 99285

== ENCOUNTER 2025-02-03 09:29 | Outpatient (OUT) | payer MEDICARE, SELFPAY ==
--- OUTSIDE RECORDS SUMMARY | 2025-02-03 05:18 | XMS_ITS | Continuity of Care Document ---
Author Organization [facility] Address [address] [place] [address] Phone Care Team Providers Care Cryptographer Name Role Phone Marine Glass MD Primary Care Provider Marine Glass MD Attending Provider [phone] Tyshawn Snow DO Attending Provider Unavailable Ayanna Saini CMA Attending Provider Ian Berumen DO Attending Provider Care Teams Patient Care Team Team Status: Active Member Role Status Dates Marine Glass MD Primary Care Provider Active Visit Care Team Team Status: Inactive Member Role Status Dates Marine Glass MD Primary Care Provider Active Start: November 29, 2024 End: November 29, 2024 Marine Glass MD Attending Provider Active St art: November 29, 2024 End: November 29, 2024 Visit Care Team Team Status: Active Member Role Status Nora Glass MD Primary Care Provider Active Start: December 18, 2024 Tyshawn Snow DO Attending Provider Active Sta rt: December 18, 2024 Visit Care Team Team Status: Active Member Role Status Dates Marine Glass MD Primary Care Provider Active Start: December 19, 2024 Tyshawn Snow DO Attending Provider Active Sta rt: December 19, 2024 Visit Care Team Team Status: Active Member Role Status Nora Glass MD Primary Care Provider Active Start: December 19, 2024 Ayanna Saini CMA Attending Provider Active Start: December 19, 2024 Visit Care Team Team Status: Inactive Member Role Status Dates Marine Glass MD Primary Care Provider Active Start: December 29, 2024 End: December 29, 2024 Marine Glass MD Attending Provider Active St art: December 29, 2024 End: December 29, 2024 Patient Care Team Team Status: Active Member Role Status Dates Marine Glass MD Primary Care Provider Active Start: January 29, 2025 Ian Connell DO Attending Provider Active S tart: January 29, 2025 Patient Care Team Team Status: Active Member Role Status Dates Marine Glass MD Primary Care Provider Active Start: January 31, 2025 Ayanna Saini CMA Attending Provider Active Start: January 31, 2025 Patient Care Team Team Status: Inactive Member Role Status Dates Marine Glass MD Primary Care Provider Active Start: February 03, 2025 End: February 03, 2025 Marine Glass MD Attending Provider Active St art: February 03, 2025 End: February 03, 2025 Patient Care Team Team Status: Active Member Role Status Dates Marine Glass MD Primary Care Provider Active Start: February 03, 2025 Marine Glass MD Attending Provider Active St art: February 03, 2025 Chief Complaint and Reason for Visit Chief Complaint Admit Date UA, burning, itching, pressure, frequenc y November 29, 2024 8:53am Amb Documentation December 19, 2024 10 :38am [facility] ER f/u December 29, 2024 10 :23am Amb Documentation January 31, 2025 8:46am [facility] ER syncope February 03, 2025 8: 17am Reason for Visit Admit Date Dysuria November 29, 2024 8:53 am CKD stage 3a, GFR 45-59 ml/min December 292024 10:23am Dysuria December 29, 2024 10 :23am Exudative age-related macula r degeneration, bilateral, stage unspecified December 29, 2024 10:23am Hypokalemia December 29, 2024 10 :23am Paroxysmal atrial fibrillation December 292024 10:23am Syncopal episodes December 29, 2024 10 :23am Hypokalemia February 03, 2025 8: 17am Syncopal episodes February 03, 2025 8: 17am Allergies, Adverse Reactions, Alerts Allergen Type Severity Reaction Last Updated Verified Status acetaminophen Allergy Unknown Hives February 8:23am Yes Active baclofen Allergy Unknown Hives February 03, 2025 8:23am Yes Active calcitonin Allergy Unknown Hives February 03, 2025 8:23am Yes Active codeine Allergy Unknown Hives February 03, 2025 8:23am Yes Active hydrocodone Allergy Unknown Hives February 03, 2025 8:23am Yes Active levofloxacin Allergy Unknown Hives February 03, 2025 8:23am Yes Active morphine Allergy Unknown Hives February 03, 2025 8:23am Yes Active penicillin G benzathine Allergy Unknown Hives February 03, 2025 8:23am Yes Active Penicillins Allergy Unknown Hives February 03, 2025 8:23am Yes Active rofecoxib Allergy Unknown Hives February 03, 2025 8:23am Yes Active sulfadiazine Allergy Unknown Comment:Sulfa February 032024 8:23am Yes Active tramadol Allergy Unknown Hives February 03, 2025 8:23am Yes Active zolpidem Allergy Unknown Hives February 03, 2025 8:23am Yes Active Social History Smoking Status Status Start Date End Date Date of Observa tion Ex-smoker (finding) April 30, 2024 10:35am Observation Status Observation Response Date of Response Legal Sex Female (finding) Sex Assigned At Female 1945 Family History Relationship Condition Age at Onset Recorded Date/T nilam father Unknown mother Unknown Problems Active Problems Medical Problem Onset Date Status Insomnia Unknown Active Acute otitis media with effusion Unknown Active Dysuria Unknown Active Chronic right hip pain Unknown Active Pre-operative exam Unknown Active Syncopal episodes Unknown Active Essential hypertension Unknown Active Reaction, situational, acute, to stress Unknown Active Paroxysmal atrial fibrillation Unknown A ctive CKD stage 3a, GFR 45-59 ml/min Unknown A ctive Acute bilateral otitis media Unknown Act david Exudative age-related macula r degeneration, bilateral, stage unspecified Unknown Active Macular degeneration Unknown Active Hypokalemia Unknown Active Medications Medication Status Dose Units Route Directions Qty Days St art Date Stop Date End Date Instructions Adherence Temazepam 30 mg capsule Discont inued 30 MG PO Daily at bedtime August 18, 2023 4:01pm September 17, 2023 10:52 am Temazepam 30 mg capsule Discont inued 30 MG PO Daily at bedtime September 17, 2023 10:52a m October 16, 2023 9:47a m Temazepam 30 mg capsule Discont inued 30 MG PO Daily at bedtime October 16, 2023 9:47am November 17, 2023 3:40p m Temazepam 30 mg capsule Discont inued 30 MG PO Daily at bedtime November 17, 2023 3:39pm Augus t 2023 10:36 am Temazepam 30 mg capsule Discont inued 30 MG PO Daily at bedtime December 16, 2023 10:36a m Septe mber 2023 2:55p m Omeprazole 40 mg capsule,del ayed release(DR/ EC) Discont inued 0 .ROUTE .COMPLEX 180 December 22, 2023 11:13a m Decem fariha 2023 11:34 am TAKE 2 CAPSULES DAILY Temazepam 30 mg capsule Discont inued 30 MG PO Daily at bedtime 30 Septem fariha 2023 2:55pm Septe mber 2023 11:47 am Temazepam 30 mg capsule Discont inued 30 MG PO Daily at bedtime 30 Febobe r 2023 9:26am Novem fariha 2023 9:35a m Temazepam 30 mg capsule Discont inued 30 MG PO Daily at bedtime Novemb er 2023 9:35am Decem fariha 2023 10:58 am Lisinopril 20 mg tablet Active 0 .ROUTE .COMPLEX 90 Novemb er 2023 5:38pm TAKE 1 TABLET DAILY Unknown Temazepam 30 mg capsule Discont inued 30 MG PO Daily at bedtime 30 Decemb er 2023 10:58a m Mayua ry 2024 10:49 am Sumatriptan Succinate 25 mg tablet Discont inued 25 MG PO Once as needed for migraine headache 2024 1:00am ry 2024 2:02p m Sumatriptan Succinate 25 mg tablet Discont inued 25 MG PO Once as needed for migraine headache 2024 2:02pm Octob er 2024 8:46a m Trazodone 50 mg tablet Discont inued 50 MG PO Daily at bedtime as needed for insomnia 2024 1:44pm August 30, 2024 1:45p m Trazodone 50 mg tablet Discont inued 50 MG PO Daily at bedtime as needed for insomnia August 30, 2024 1:45pm November 15, 2024 3:54p m Trazodone 50 mg tablet Discont inued 50 MG PO Daily at bedtime as needed for insomnia November 15, 2024 3:54pm Sept 2024 8:29a m Omeprazole 40 mg capsule,del ayed release(DR/ EC) Active 40 MG PO Daily December 19, 2024 8:22am Unknown Trazodone 50 mg tablet Active 50 MG PO Daily at bedtime as needed for insomnia 2024 8:29am Unknown Trospium 20 mg tablet Discont inued 20 MG PO Daily 2023 1:00am 2023 2:33p m Atenolol 50 mg tablet Active 50 MG PO Daily 2023 1:00am Unknown Trospium 60 mg capsule,ext ended release 24hr Discont inued MG PO 2023 1:00am 2023 2:33p m Temazepam 30 mg capsule Discont inued 30 MG PO Once 2023 1:00am August 18, 2023 4:02p m Orphenadrin e Citrate 100 mg tablet extended release Discont inued MG PO 2023 1:00am 2023 2:32p m Methylpredn isolone 4 mg tablets,dos e pack Discont inued 4 MG PO .COMPLEX 2023 1:00am Febru 2023 2:31p m 4 mg orally; Hydrochloro thiazide 25 mg tablet Active 25 MG PO Daily 2023 1:00am Unknown Apixaban (Eliquis) 5 mg tablet Discont inued 5 MG PO Once 2023 1:00am [facility] 2023 11:34 am Ketorolac 10 mg tablet Discont inued 10 MG PO Once 2023 1:00am Febru hayden2023 2:31p m Lisinopril 20 mg tablet Discont inued 20 MG PO Daily 2023 1:00am Novem fariha 2023 5:38p m Omeprazole 40 mg capsule,del ayed release(DR/ EC) Discont inued 40 MG PO Daily 2023 1:00am Augus t 2023 11:13 am Baclofen 10 mg tablet Active 10 MG PO Daily 2023 1:00am Unknown Trospium 20 mg tablet Active 20 MG PO Twice daily ry 2023 2:33pm Unknown Apixaban (Eliquis) 5 mg tablet Active 5 MG PO Twice daily [facility] er 2023 11:32a m Unknown Omeprazole 40 mg capsule,del ayed release(DR/ EC) Discont inued 40 MG PO Daily [facility] er 2023 11:33a m Augus t 2024 8:22a m Azithromyci n 250 mg tablet Discont inued 0 PO .COMPLEX 6 [facility] er 2023 1:00am 2024 10:21 am For 250 mg dose pack: take 500 mg today (day 1), then 250 mg for 4 days (days 2-5) PO Prednisone 20 mg tablet Discont inued 20 MG PO Daily 3 3 [facility] er 2023 1:00am 2024 10:21 am Potassium Chloride (Klor-Con M20) 20 mEq tablet,ER particles/c rystals Active 20 MEQ PO Daily December 28, 2024 12:00a m FreeTextSi tablet with food Orally Once a day; Note: Source Status: Taking; Provider: Maria Luisa Hawthorne ( ) Unknown Temazepam 30 mg capsule Discont inued 30 MG PO Daily at bedtime as needed December 28, 2024 12:00a m Octob er 2024 8:44a m Cephalexin 500 mg capsule Discont inued 500 MG PO Three times daily 21 December 29, 2024 12:00a m Octob er 2024 8:44a m Tizanidine 4 mg tablet Active 4 MG PO Daily at bedtime as needed for muscle spasticity December 29, 2024 12:00a m Unknown Flecainide 50 mg tablet Active 50 MG PO Every 12 hours October 28, 2023 12:00a m Unknown Cyclosporin e (Restasis Multidose) 0.05 % drops Active 1 DROPS EYE-IMTIAZ TH Every 12 hours October 28, 2023 12:00a m Unknown Vitamins A,C,E-Zinc- Copper (Preservisi on Areds) 4,296 mcg-226 mg-90 mg capsule Active 1 CAP PO Twice daily October 28, 2023 12:00a m Unknown Temazepam 30 mg capsule Discont inued 30 MG PO Daily at bedtime 30 fariha 2023 11:46a m Octob er 2023 9:27a m Trazodone 50 mg tablet Discont inued 50 MG PO Daily at bedtime as needed for insomnia 2024 1:00am Febru hayden 2024 1:44p m Nitrofurant oin Macrocrysta l 100 mg capsule Discont inued 100 MG PO Twice daily November 29, 2024 12:00a m Augus t 2024 11:00 am must administer with a meal/food Immunizations Immunization Event Date Not Given Reason Dose Number Director Of Retail Merchandising Lot Number Vaccine Information Statement (VIS) Detail Administration Location influenza, unspecified formulation February 05, 2017 influenza, unspecified formulation January 05, 2018 influenza, unspecified formulation January 27, 2020 Pneumococcal Conjugate Vaccine, 13 valent February 05, 2017 Pneumococcal Polysacc. Vaccine, 23 valent February 01, 2002 Pneumococcal Polysacc. Vaccine, 23 valent January 05, 2018 Relevant Diagnostic Tests and/or Laboratory Data Laboratory Results Test Collection Date/Time Result Date/Time Result Interpretation Reference Range Result Comment Performing Site Urine Color November 29, 2024 9:19am November 29, 2024 9:21am yellow Alanine Aminotra nsferase (ALT/SGP T) December 18, 2024 8:39pm December 18, 2024 8:39pm 9 U/L 7-38 Magnesiu m Level December 18, 2024 8:39pm December 18, 2024 8:39pm 2.0 mg/dL 1.7-2.3 Lipase December 18, 2024 8:39pm December 18, 2024 9:21pm 24 U/L 16-61 Total Creatine Kinase December 18, 2024 8:39pm December 18, 2024 9:21pm 37 U/L Below low normal 42-196 NT-Pro-B -Type Natriure tic Peptide December 18, 2024 8:39pm December 18, 2024 8:39pm 507 pg/mL Above high normal <450 Ethyl Alcohol Level December 18, 2024 8:39pm December 18, 2024 8:39pm 105 mg/dL Above high normal <11 Values > 80 mg/dL may indicate intoxicatio n Prothrom bin Time December 18, 2024 8:39pm December 18, 2024 8:39pm 11.7 sec 9.7-13.0 Basophil s # (Auto) December 18, 2024 8:39pm December 18, 2024 8:39pm 0.09 k/uL <0.11 Troponin T Hi Sens Cardiac Interven December 18, 2024 9:42pm December 18, 2024 9:42pm 12 ng/L Above high normal <12 Urine Ketones December 19, 2024 12:06am December 19, 2024 12:06am Negative Negative, Trace Troponin T Hi Sens Cardiac Interven December 19, 2024 12:29am December 19, 2024 12:29am 13 ng/L Above high normal <12 Urine Color December 29, 2024 10:57am December 29, 2024 10:59am yellow Anion Gap December 29, 2024 11:18am December 29, 2024 11:18am 9.5 Troponin I High Sensitiv ity January 29, 2025 2:49pm January 29, 2025 2:49pm 9.8 pg/mL 4.0-51.3 CUT-OFF POINTS HAVE BEEN ESTABLISHED BASED ON THE FOURTHUNIVE RSAL DEFINITION OF MYOCARDIAL INFARCTION. THE UPPERREFERE NCE LIMIT (URL) OF TROPONIN, DEFINED THE 99THPERCENT ILE OF cTnI DISTRIBUTIO N IN A REFERENCE POPULATION, HAS BEEN CONFIRMED THE DECISION THRESHOLD FOR MIDIAGNOSIS .99TH PERCENTILE = 51.4 PG/MLNOTE: HIGH-SENSIT IVITY TROPONIN ASSAY IS NOT INTENDED TO BEUSED IN ISOLATION BUT SHOULD BE INTERPRETED IN CONJUNCTION WITH OTHER DIAGNOSTIC AND CLINICAL INFORMATION . Anion Gap January 29, 2025 2:49pm 16.9 Basophil s # (Auto) January 29, 2025 2:49pm January 29, 2025 2:49pm 0.1 10 3/uL 0.0-0.1 Urine Other Casts January 29, 2025 4:30pm NONE SEEN #/LPF NONE SEEN Urine Appearan ce November 29, 2024 9:19am November 29, 2024 9:21am clear Albumin December 18, 2024 8:39pm December 18, 2024 8:39pm 3.7 g/dL Below low normal 3.9-4.9 Prothrom b Time Internat ional Ratio December 18, 2024 8:39pm December 18, 2024 8:39pm 1.1 0.9-1.3 Vitamin K Antagonist (VKA) Therapeutic Range: INR 2 to 3 (Target INR of 2.5)Note: For patients treated with VKA drugs, such as warfarin, the [place] [employer] 2012 Guideline recommends a therapeutic INR range of 2 to 3 (target INR of 2.5). This recommendat ion includes high-risk patients with antiphospho lipid syndrome with previous arterial or venous thromboembo lism, current-gen eration mechanical or bioprosthet ic aortic heart valve replacement .Note: Patients with mechanical aortic valve replacement and additional risk factors for thromboembo lic events (atrial fibrillatio n, previous thromboembo lism, LV dysfunction , hypercoagul able conditions) or an older generation mechanical AVR (i.e., ball in-Cage) or any mechanical MVR should have a INR therapeutic range of 2.5 to 3.5 (target INR of 3).Indy GH, et al. Chest 2012, 141:7S-47SN ishbrittany RA, et al. JACC 2017, 70: 252-289 Basophil s (%) (Auto) December 18, 2024 8:39pm December 18, 2024 8:39pm 1.2 % Urine Bacteria December 19, 2024 12:06am December 19, 2024 12:06am Rare [HPF] Abnormal (applies to non-numeric results) None Seen Urine Appearan ce December 29, 2024 10:57am December 29, 2024 10:59am clear BUN/Crea tinine Ratio December 29, 2024 11:18am December 29, 2024 11:18am 26.0 Albumin/ Globulin Ratio January 29, 2025 2:49pm 0.8 Basophil s (%) (Auto) January 29, 2025 2:49pm January 29, 2025 2:49pm 0.9 % 0.2-2.0 Urine Other Crystals January 29, 2025 4:30pm None Seen #/HPF None Seen Urine Specific Modale November 29, 2024 9:19am November 29, 2024 9:21am 1.015 Aspartat e Amino Transf (AST/SGO T) December 18, 2024 8:39pm December 18, 2024 8:39pm 16 U/L 13-35 Eosinoph ils # (Auto) December 18, 2024 8:39pm December 18, 2024 8:39pm 0.34 k/uL <0.46 Urine Bilirubi n December 19, 2024 12:06am December 19, 2024 12:06am Negative Negative Urine Specific Mod[place] December 29, 2024 10:57am December 29, 2024 10:59am 1.000 Blood Urea Nitrogen December 29, 2024 11:18am December 29, 2024 11:18am 25.0 mg/dL Above high normal 7.0-18.0 Albumin January 29, 2025 2:49pm 3.6 g/dL 3.4-5.0 Eosinoph ils # (Auto) January 29, 2025 2:49pm January 29, 2025 2:49pm 0.4 10 3/uL 0.0-0.7 Urine Bacteria January 29, 2025 4:30pm TRACE #/HPF Abnormal (applies to non-numeric results) NONE SEEN Urine pH November 29, 2024 9:19am November 29, 2024 9:21am 5 Total Bilirubi n December 18, 2024 8:39pm December 18, 2024 8:39pm 0.2 mg/dL 0.2-1.3 Eosinoph ils (%) (Auto) December 18, 2024 8:39pm December 18, 2024 8:39pm 4.6 % Urine Color December 19, 2024 12:06am December 19, 2024 12:06am Light Yellow yellow Urine pH December 29, 2024 10:57am December 29, 2024 10:59am 7.5 Calcium Level December 29, 2024 11:18am December 29, 2024 11:18am 9.6 mg/dL 8.5-10.1 Alkaline Phosphat ase January 29, 2025 2:49pm 63 U/L 46-116 Eosinoph ils (%) (Auto) January 29, 2025 2:49pm January 29, 2025 2:49pm 5.3 % 0.9-7.0 Urine Bilirubi n January 29, 2025 4:30pm NEGATIVE NEGATIVE Urine Leukocyt e Esterase November 29, 2024 9:19am November 29, 2024 9:21am negative Carbon Dioxide Level December 18, 2024 8:39pm December 18, 2024 8:39pm 24 mmol/L 22-30 Hemoglob in December 18, 2024 8:39pm December 18, 2024 8:39pm 12.3 g/dL 11.5-15.5 Urine Squamous Epitheli al Cells December 19, 2024 12:06am December 19, 2024 12:06am Few [HPF] Urine Leukocyt e Esterase December 29, 2024 10:57am December 29, 2024 10:59am negative Chloride Level December 29, 2024 11:18am December 29, 2024 11:18am 105 mmol/L 98-107 Alanine Aminotra nsferase (ALT/SGP T) January 29, 2025 2:49pm 16 U/L 14-59 Hematocr it January 29, 2025 2:49pm January 29, 2025 2:49pm 40.4 % 36.0-48.0 Urine Occult Blood January 29, 2025 4:30pm NEGATIVE NEGATIVE Urine Nitrite November 29, 2024 9:19am November 29, 2024 9:21am Positive Chloride Level December 18, 2024 8:39pm December 18, 2024 8:39pm 99 mmol/L 98-107 Lymphocy abhijeet # (Auto) December 18, 2024 8:39pm December 18, 2024 8:39pm 3.86 k/uL 1.00-4.00 Urine Glucose (UA) December 19, 2024 12:06am December 19, 2024 12:06am Negative Trace, Negative Urine Nitrite December 29, 2024 10:57am December 29, 2024 10:59am Negative Carbon Dioxide Level December 29, 2024 11:18am December 29, 2024 11:18am 32.8 mmol/L Above high normal 21.0-32.0 Aspartat e Amino Transf (AST/SGO T) January 29, 2025 2:49pm 16 U/L 15-37 Hemoglob in January 29, 2025 2:49pm January 29, 2025 2:49pm 13.7 g/dL 12.0-16.0 Urine Appearan ce January 29, 2025 4:30pm CLEAR CLEAR Urine Protein November 29, 2024 9:19am November 29, 2024 9:21am negative Creatini ne December 18, 2024 8:39pm December 18, 2024 8:39pm 1.24 mg/dL Above high normal 0.58-0.96 Lymphocy abhijeet (%) (Auto) December 18, 2024 8:39pm December 18, 2024 8:39pm 51.7 % Urine Occult Blood December 19, 2024 12:06am December 19, 2024 12:06am Trace Negative, Trace Urine Protein December 29, 2024 10:57am December 29, 2024 10:59am negative Creatini ne December 29, 2024 11:18am December 29, 2024 11:18am 0.96 mg/dL 0.55-1.02 BUN/Crea tinine Ratio January 29, 2025 2:49pm 17.2 Immature Granuloc yte # (Auto) January 29, 2025 2:49pm January 29, 2025 2:49pm 0.02 10 3/uL 0.00-0.03 Urine Color January 29, 2025 4:30pm YELLOW YELLOW Urine Glucose (UA) November 29, 2024 9:19am November 29, 2024 9:21am negative Glucose Level December 18, 2024 8:39pm December 18, 2024 8:39pm 153 mg/dL Above high normal 74-99 The [place] [employer] (ADA) provides guidance for cutoff values for fasting glucose and random glucose. The ADA defines fasting as no caloric intake for at least 8 hours. Fasting plasma glucose results between 100 to 125 mg/dL indicate increased risk for diabetes (prediabete s).Fasting plasma glucose results greater than or equal to 126 mg/dL meet the criteria for diagnosis of diabetes. In the absence of unequivocal hyperglycem ia, results should be confirmed by repeat testing. In a patient with classic symptoms of hyperglycem ia or hyperglycem ic crisis, random plasma glucose results greater than or equal to 200 mg/dL meet the criteria for diagnosis of diabetes.Stephanie hi: Standards of Medical Care in Diabetes 2016, [place] [employer] . Diabetes Care. 2016.39(Sup pl 1). Monocyte s # (Auto) December 18, 2024 8:39pm December 18, 2024 8:39pm 0.70 k/uL <0.87 Urine Hyaline Casts December 19, 2024 12:06am December 19, 2024 12:06am 1-3 /LPF Abnormal (applies to non-numeric results) 0 /LPF Urine Glucose (UA) December 29, 2024 10:57am December 29, 2024 10:59am negative Estimate d GFR ( ) December 29, 2024 11:18am December 29, 2024 11:18am >60 >=60 mL/min/1.7 3m 2 Blood Urea Nitrogen January 29, 2025 2:49pm 28.0 mg/dL Above high normal 7.0-18.0 Immature Granuloc yte % (Auto) January 29, 2025 2:49pm January 29, 2025 2:49pm 0.3 % 0.0-0.5 Urine Glucose (UA) January 29, 2025 4:30pm NEGATIVE mg/dL NEGATIVE Urine Ketones November 29, 2024 9:19am November 29, 2024 9:21am negative Potassiu m Level December 18, 2024 8:39pm December 18, 2024 8:39pm 3.1 mmol/L Below low normal 3.7-5.1 Neutroph ils # (Auto) December 18, 2024 8:39pm December 18, 2024 8:39pm 2.47 k/uL 1.45-7.50 Urine Leukocyt e Esterase December 19, 2024 12:06am December 19, 2024 12:06am 500 Felipe/uL Abnormal (applies to non-numeric results) Negative, 25 Felipe/uL Urine Ketones December 29, 2024 10:57am December 29, 2024 10:59am negative Estimate d GFR (Non-Afr ican [place]ian December 29, 2024 11:18am December 29, 2024 11:18am 56 Below low normal >=60 mL/min/1.7 3m 2 Calcium Level January 29, 2025 2:49pm 9.7 mg/dL 8.5-10.1 Lymphocy abhijeet # (Auto) January 29, 2025 2:49pm January 29, 2025 2:49pm 2.9 10 3/uL 1.2-3.8 Urine Ketones January 29, 2025 4:30pm NEGATIVE mg/dL NEGATIVE Urine Urobilin ogen November 29, 2024 9:19am November 29, 2024 9:21am 0.2 Serum Total Protein December 18, 2024 8:39pm December 18, 2024 8:39pm 6.4 g/dL 6.3-8.0 Neutroph ils (%) (Auto) December 18, 2024 8:39pm December 18, 2024 8:39pm 33.0 % Urine Nitrite December 19, 2024 12:06am December 19, 2024 12:06am 2+ Abnormal (applies to non-numeric results) Negative Urine Urobilin ogen December 29, 2024 10:57am December 29, 2024 10:59am 0.2 Glucose Level December 29, 2024 11:18am December 29, 2024 11:18am 93 mg/dL 74-106 Chloride Level January 29, 2025 2:49pm 100 mmol/L 98-107 Lymphocy abhijeet (%) (Auto) January 29, 2025 2:49pm January 29, 2025 2:49pm 38.2 % 20.5-60.0 Urine Leukocyt e Esterase January 29, 2025 4:30pm NEGATIVE NEGATIVE Urine Bilirubi n November 29, 2024 9:19am November 29, 2024 9:21am negative Sodium Level December 18, 2024 8:39pm December 18, 2024 8:39pm 138 mmol/L 136-144 Nucleate d Red Blood Cells # December 18, 2024 8:39pm December 18, 2024 8:39pm <0.01 k/uL <0.01 Urine pH December 19, 2024 12:06am December 19, 2024 12:06am 6.0 5.0-8.0 Urine Bilirubi n December 29, 2024 10:57am December 29, 2024 10:59am negative Potassiu m Level December 29, 2024 11:18am December 29, 2024 11:18am 4.3 mmol/L 3.5-5.1 Carbon Dioxide Level January 29, 2025 2:49pm 28.3 mmol/L 21.0-32.0 Mean Corpuscu lar Hemoglob in January 29, 2025 2:49pm January 29, 2025 2:49pm 32.8 pg 26.7-34.0 Urine Mucus January 29, 2025 4:30pm TRACE Abnormal (applies to non-numeric results) NONE SEEN Urine Occult Blood November 29, 2024 9:19am November 29, 2024 9:21am ++ Blood Urea Nitrogen December 18, 2024 8:39pm December 18, 2024 8:39pm 22 mg/dL Above high normal 7-21 Platelet Count December 18, 2024 8:39pm December 18, 2024 8:39pm 209 k/uL 150-400 Urine Protein December 19, 2024 12:06am December 19, 2024 12:06am Negative Trace, Negative Urine Occult Blood December 29, 2024 10:57am December 29, 2024 10:59am negative Sodium Level December 29, 2024 11:18am December 29, 2024 11:18am 143 mmol/L 136-145 Creatini ne January 29, 2025 2:49pm 1.63 mg/dL Above high normal 0.55-1.02 Mean Corpuscu lar Hemoglob in Concent January 29, 2025 2:49pm January 29, 2025 2:49pm 33.9 g/dL 29.9-35.2 Urine Nitrite January 29, 2025 4:30pm NEGATIVE NEGATIVE Alkaline Phosphat ase December 18, 2024 8:39pm December 18, 2024 8:39pm 55 U/L 34-123 Mean Corpuscu lar Hemoglob in December 18, 2024 8:39pm December 18, 2024 8:39pm 32.5 pg 26.0-34.0 Urine Specific [place] December 19, 2024 12:06am December 19, 2024 12:06am 1.028 1.005-1.03 0 Estimate d GFR ( ) January 29, 2025 2:49pm 37 Below low normal >=60 mL/min/1.7 3m 2 Mean Corpuscu lar Volume January 29, 2025 2:49pm January 29, 2025 2:49pm 96.7 fL 81.0-99.0 Urine pH January 29, 2025 4:30pm 5.5 5.0-9.0 Calcium Level December 18, 2024 8:39pm December 18, 2024 8:39pm 9.4 mg/dL 8.5-10.2 Mean Corpuscu lar Hemoglob in Concent December 18, 2024 8:39pm December 18, 2024 8:39pm 33.3 g/dL 30.5-36.0 Urine Urobilin ogen December 19, 2024 12:06am December 19, 2024 12:06am Normal Normal Estimate d GFR (Non-Afr ican Cambodian January 29, 2025 2:49pm 31 Below low normal >=60 mL/min/1.7 3m 2 Monocyte s # (Auto) January 29, 2025 2:49pm January 29, 2025 2:49pm 0.7 10 3/uL 0.3-0.8 Urine Protein January 29, 2025 4:30pm NEGATIVE mg/dL NEG/TRACE Anion Gap December 18, 2024 8:39pm December 18, 2024 8:39pm 15 mmol/L 8-15 Mean Corpuscu lar Volume December 18, 2024 8:39pm December 18, 2024 8:39pm 97.4 fL 80.0-100.0 Urine WBC December 19, 2024 12:06am December 19, 2024 12:06am >25 /HPF Abnormal (applies to non-numeric results) 0-5 /HPF Globulin January 29, 2025 2:49pm 4.3 g/dL Monocyte s (%) (Auto) January 29, 2025 2:49pm January 29, 2025 2:49pm 9.5 % 1.7-12.0 Urine RBC January 29, 2025 4:30pm 2-5 #/HPF Abnormal (applies to non-numeric results) 0-2 Estimate d GFR (CKD-EPI ) December 18, 2024 8:39pm December 18, 2024 8:39pm 45 mL/min/1. 73m??? Below low normal >=60 Estimated Glomerular Filtration Rate (eGFR) is calculated using the 2020 CKD-EPI creatinine equation. This equation utilizes serum creatinine, sex, and age as parameters. The creatinine assay has traceable calibration to isotope dilution-ma ss spectrometr y. Refer to KDIGO guidelines for clinical interpretat ion. In patients with unstable renal function, e.g. those with acute kidney injury, the eGFR may not accurately reflect actual GFR. Red Blood Count December 18, 2024 8:39pm December 18, 2024 8:39pm 3.79 m/uL Below low normal 3.90-5.20 Urine RBC December 19, 2024 12:06am December 19, 2024 12:06am 6-10 /HPF Abnormal (applies to non-numeric results) 0-3 /HPF Glucose Level January 29, 2025 2:49pm 154 mg/dL Above high normal 74-106 Mean Platelet Volume January 29, 2025 2:49pm January 29, 2025 2:49pm 9.0 fL Below low normal 9.5-13.5 Urine Specific Modale January 29, 2025 4:30pm 1.020 1.005-1.02 5 Hematocr it December 18, 2024 8:39pm December 18, 2024 8:39pm 36.9 % 36.0-46.0 Urine Appearan ce December 19, 2024 12:06am December 19, 2024 12:06am Turbid Abnormal (applies to non-numeric results) Clear Potassiu m Level January 29, 2025 2:49pm 3.2 mmol/L Below low normal 3.5-5.1 Neutroph ils # (Auto) January 29, 2025 2:49pm January 29, 2025 2:49pm 3.5 10 3/uL 1.4-6.5 Urine Squamous Epitheli al Cells January 29, 2025 4:30pm FEW #/LPF Abnormal (applies to non-numeric results) NONE/RARE Monocyte s (%) (Auto) December 18, 2024 8:39pm December 18, 2024 8:39pm 9.4 % Sodium Level January 29, 2025 2:49pm 142 mmol/L 136-145 Neutroph ils (%) (Auto) January 29, 2025 2:49pm January 29, 2025 2:49pm 45.8 % 43.0-75.0 Urine Urobilin ogen January 29, 2025 4:30pm 0.2 EU/dL 0.2-1.0 Correcte d White Blood Count December 18, 2024 8:39pm December 18, 2024 8:39pm 7.47 k/uL 3.70-11.00 Total Bilirubi n January 29, 2025 2:49pm 0.7 mg/dL 0.2-1.0 Platelet Count January 29, 2025 2:49pm January 29, 2025 2:49pm 273 10 3/uL 150-450 Urine WBC January 29, 2025 4:30pm 2-5 #/HPF Abnormal (applies to non-numeric results) NONE SEEN Nucleate d RBC Relative Count (auto) December 18, 2024 8:39pm December 18, 2024 8:39pm 0.0 /100{WBC} Total Protein January 29, 2025 2:49pm 7.9 g/dL 6.4-8.2 Red Blood Count January 29, 2025 2:49pm January 29, 2025 2:49pm 4.18 10 6/uL Below low normal 4.20-5.40 Red Cell Distribu tion Width December 18, 2024 8:39pm December 18, 2024 8:39pm 11.9 % 11.5-15.0 Red Cell Distribu tion Width January 29, 2025 2:49pm January 29, 2025 2:49pm 11.8 % 11.0-15.0 Mean Platelet Volume December 18, 2024 8:39pm December 18, 2024 8:39pm 8.7 fL Below low normal 9.0-12.7 Correcte d White Blood Count January 29, 2025 2:49pm January 29, 2025 2:49pm 7.7 10 3/uL 4.0-11.0 Differen tial Comment December 18, 2024 8:39pm December 18, 2024 8:39pm Auto Immature Granuloc yte # (Auto) December 18, 2024 8:39pm December 18, 2024 8:39pm <0.03 k/uL <0.10 Immature Granuloc yte % (Auto) December 18, 2024 8:39pm December 18, 2024 8:39pm 0.1 % Vital Signs Vital Reading Result Reference Range Collection Date/Time Height 65 [in_i] December 29 10:27am Weight 79.40 kg December 29 10:27am Heart Rate 52 /min 60-100 December 29 10:27am BP Systolic 148 mm[Hg] 100-140 December 29 10:27am BP Diastolic 69 mm[Hg] 60-100 December 29, 10:27am BMI (Body Mass Index) 29.1 kg/m2 December 29, 2024 10:27am Height 65 [in_i] February 03 8:21am Weight 77.56 kg February 03 8:21am Heart Rate 61 /min 60-100 February 03 8:21am BP Systolic 102 mm[Hg] 100-140 February 03, 8:21am BP Diastolic 72 mm[Hg] 60-100 February 03 8:21am BMI (Body Mass Index) 28.4 kg/m2 2024 8:21am Advance Directives Advance Directive Response Recorded Date/ Time Advance Directives No November 17 6:19pm Insurance Providers Guarantor Bettie Burns Address [address] [place] [id number] Contact Info. Home Phone: Payer Policy Id Subscriber's Name Subscriber Id Effectiv e Date Expiration Date [employer] [facility] [id number] Bettie Burns [id number] Encounters Encounter Location(s) Arrival/Admit Date Discharge /Depart Date Provider(s) Departed Physician/Provi nuzhat Office Visit -[facility] November 29, 2024 8:53am November 29, 2024 9:42am Marine Glass MD Non-patient / Non-visit [facility] December 18, 2024 8:39pm Evie Cantu DO Non-patient / Non-visit -[facility] December 19, 2024 12:06am Evie Cantu DO Non-patient / Non-visit -[facility] December 19, 2024 10:38am Ayanna Saini CMA Departed Physician/Provi nuzhat Office Visit -[facility] December 29, 2024 10:23am December 29, 2024 11:02am Marine Glass MD Non-patient / Non-visit -[facility] January 29, 2025 2:49pm Evie Larry DO Non-patient / Non-visit -[facility] January 31, 2025 8:46am Ayanna Saini CMA Departed Physician/Provi nuzhat Office Visit -[facility] February 03, 2025 8:17am February 03, 2025 9:17am Marine Glass MD Registered Clinical -EKG [facility] February 03, 2025 8:52am Marine Glass MD Recent Diagnosis Onset Date Admit Date Dysuria Unknown November 29, 2024 8:53am CKD stage 3a, GFR 45-59 ml/min Unknown A 2024 10:23am Dysuria Unknown December 29 10:23am Exudative age-related macula r degeneration, bilateral, stage unspecified Unknown December 29, 2024 10:23am Hypokalemia Unknown December 29 10:23am Paroxysmal atrial fibrillation Unknown A 2024 10:23am Syncopal episodes Unknown December 29, 025 10:23am Hypokalemia Unknown February 03 8:17am Syncopal episodes Unknown February 03 8:17am Assessments Diagnosis Onset Date Resolution Status Admit Date Dysuria acute November 29 8:53am CKD stage 3a, GFR 45-59 ml/min acute December 29, 2024 10:23am Dysuria acute December 29 025 10:23am Exudative age-related macula r degeneration, bilateral, stage unspecified acute December 29 10:23am Hypokalemia acute December 29, 2024 10:23am Paroxysmal atrial fibrillation acute December 29, 2024 10:23am Syncopal episodes acute December 29, 2024 10:23am Hypokalemia acute February 03, 2025 8:17am Syncopal episodes acute February 03, 2025 8:17am Plan of Treatment Author Marine Glass [facility] Authored January 03, 2025 10:05am Check renal status and potas sium level today. as above continue followup w her specialist. Continue present medications and followup w Cardiology as scheduled. Pt denies any further symptoms of syncope since her ER event. UA normal. Continue good hydration. Abx refilled to have on hand as she feels her syncopal event was brewing w UTI symptoms for 1-2 days prior to event. Future Tests Future scheduled test information is unavailable Pending Tests Pending diagnostic test information is unavailable Future Visits Future appointment information is unavailable Referrals to Other Providers Referral information is unavailable Future Procedures Procedure Name Ordered Date Scheduled Date Basic Metabolic Panel February 03, 2025 8:49am Complete Blood Count Auto Diff February 03, 2025 8:49am [facility] ECG *PCP OFFICE ONLY* February 03, 2025 8:52 am February 03, 2025 8:52am Future Medications Future medication information is unavailable Patient Instructions Patient instructions are unavailable
--- OUTSIDE RECORDS SUMMARY | 2025-02-03 09:35 | XMS_ITS | Encounter Summary ---
Author Organization [facility] Address [id number] [address] [place] [address] Care Team Providers Care Envelope Maker Name Role Phone Marine Glass MD Primary Care Provider Encounter Details Date Type Department Care Team (Late st Contact Info) Description 12/04/2022 Orders Only [facility] [address] [place] [phone] Jacqueline Sparrow, RN Primary hypertension (Primary Dx); [...] - 146 mmol/L 12/29/2022 1:41 PM EDT [facility] Potassium, Bld 3.9 3.5 - 5.0 mmol/L 12/29/2022 1:41 PM EDT [facility] Chloride 103 98 - 109 mmol/L 12/29/2022 1:41 PM EDT [facility] CO2 30 22 - 32 mmol/L 12/29/2022 1:41 PM EDT [facility] Anion gap 10 5 - 15 mmol/L 12/29/2022 1:41 PM EDT [facility] BUN 23 5 - 27 mg/dL 12/29/2022 1:41 PM EDT [facility] Creatinine 1.04(H) 0.40 - 1.00 mg/dL 12/29/2022 1:41 PM EDT [facility] Comment:METHOD TRACEABLE TO IDMS STANDARD Glucose 95 65 - 99 mg/dL 12/29/2022 1:41 PM EDT [facility] Calcium 10.0 8.5 - 10.5 mg/dL 12/29/2022 1:41 PM EDT [facility] eGFR (CKD-EPI)non-ra ce dependent 56(L) >59 ml/min/1.7 3sq.m 12/29/2022 1:41 PM EDT [facility] Comment: Reported eGFR is based on the CKD-EPI 2020 equation that does not use a race coefficient. PLASMA 12/29/2022 10:2 8 AM EDT 12/29/2022 10:29 AM EDT us Mike Craft MD LAB BLOOD ORDERABLES Final Re sult [facility] [address] [facility] [place] [address] documented in this encounter Visit Diagnoses Diagnosis Primary hypertension- Primary Unspecified essential hypertension Paroxysmal atrial fibrillation ([facility]) Atrial fibrillation documented in this encounter Additional Health Concerns Assessment Noted Time PHQ-9 Depression Total Score: 0 04/24/20 20 10:41 AM EST documented as of this encounter Care Teams Envelope Maker Relationship Specialty Start Date End Date Marine Glass MD [address] [place] [address] PCP - General 07/15/23 documented as of this encounter
--- OUTSIDE RECORDS SUMMARY | 2025-02-03 09:35 | XMS_ITS | Encounter Summary ---
Author Organization [facility] Address [id number] [address] [place] [address] Care Team Providers Care Chassis Mechanic Name Role Phone Marine Glass MD Primary Care Provider [phone] Reason for Visit * Reason Onset Date Comments Med Refill 05/26/2022 Encounter Details Date Type Department Care Team (Late st Contact Info) Description 05/26/2022 Refill [facility] [address] [place] [phone] Christine Alejandra, CONCRETE BLOCK LAYER-OFFSET PRESS OPERATOR APPRENTICE [address] [place] [address] Med Refill Social History Tobacco Use Types [...] documented as of this encounter Care Teams Chassis Mechanic Relationship Specialty Start Date End Date Marine Glass MD [address] [place] [address] PCP - General 07/15/23 documented as of this encounter
--- OUTSIDE RECORDS SUMMARY | 2025-02-03 09:35 | XMS_ITS | Encounter Summary ---
Author Organization [facility] Address [id number] [address] [place] [address] Care Team Providers Care Parts Representative Name Role Phone Marine Glass MD Primary Care Provider [phone] Encounter Details Date Type Department Care Team (Late st Contact Info) Description 08/10/[address] [facility] [address] [facility] [place] [address] Meredith Bernal MA Social History [...] as of this encounter Care Teams Parts Representative Relationship Specialty Start Date End Date Marine Glass MD [address] [place] [address] PCP - General 07/15/23 documented as of this encounter
--- OUTSIDE RECORDS SUMMARY | 2025-02-03 09:35 | XMS_ITS | Encounter Summary ---
Author Organization [email or web address] Address [id number] [address] [place] [address] Care Team Providers Care Inorganic Chemist Name Role Phone Marine Glass MD Primary Care Provider [phone] Encounter Details Date Type Department Care Team (Late st Contact Info) Description 07/21/[address] [facility] [address] [place] [address] Ari Leija Social History Tobacco [...] documented as of this encounter Care Teams Inorganic Chemist Relationship Specialty Start Date End Date Marine Glass MD [address] [place] [address] PCP - General 07/15/23 documented as of this encounter
--- OUTSIDE RECORDS SUMMARY | 2025-02-03 09:35 | XMS_ITS | Encounter Summary ---
Author Organization [facility] [employer] s tem Address [id number] [address] [place] [address] Care Team Providers Care Investment Analyst Name Role Phone Marine Glass MD Primary Care Provider [phone] Reason for Visit * Reason Onset Date Comments Pre-op Exam 04/24/2020 Encounter Details Date Type Department Care Team (Late st Contact Info) Description 04/24/2020 [facility] [address] [facility] [address] [place] [address] Irene Short RN Pre-op Exam [...] documented as of this encounter Care Teams Investment Analyst Relationship Specialty Start Date End Date Marine Glass MD [address] [place] [id number] PCP - General 07/15/23 documented as of this encounter
--- OUTSIDE RECORDS SUMMARY | 2025-02-03 09:35 | XMS_ITS | Encounter Summary ---
Author Organization [facility] Sys tem Address [id number] [address] [place] [address] Care Team Providers Care Mainspring Former Arbor End Name Role Phone Marine Glass MD Primary Care Provider [phone] Encounter Details Date Type Department Care Team (Late st Contact Info) Description 06/26/2023 Orders Only [facility] [address] [place] [phone] External, Scanning Provider Social History Tobacco Use [...] 4:10 PM EST) us Scanning Provider External [facility] Final Result Performing Organization Address City/[facility]/ZIP Co de Phone Number MANUALLY TRANSCRIBED RESULTS * ECG 12 lead (06/26/2023 4:09 PM EST) us Scanning Provider External ECG ORDERABLES Final Result Performing Organization Address City/[facility] Co de Phone Number MANUALLY TRANSCRIBED RESULTS documented in this encounter Visit Diagnoses Not on filedocumented in this encounter Additional Health Concerns Assessment Noted Time PHQ-9 Depression Total Score: 0 04/24/20 20 10:41 AM EST documented as of this encounter Care Teams Mainspring Former Arbor End Relationship Specialty Start Date End Date Marine Glass MD [address] [place] [address] PCP - General 07/15/23 documented as of this encounter
--- OUTSIDE RECORDS SUMMARY | 2025-02-03 09:35 | XMS_ITS | Encounter Summary ---
Author Organization [facility] [employer] Sys tem Address [id number] [address] [place] [address] Care Team Providers Care Gasoline Truck Operator Name Role Phone Marine Glass MD Primary Care Provider [phone] Encounter Details Date Type Department Care Team (Late st Contact Info) Description 07/29/2021 Orders Only [facility] [address] [place] [phone] Jacqueline Sparrow, RN Paroxysmal atrial fibrillation ([facility]) (Primary Dx) Social History Tobacco Use Types [...] - 11.0 X10E9/L 07/29/2021 3:46 PM EDT [facility] RBC count 4.03 3.80 - 5.20 X10E12/L 07/29/2021 3:46 PM EDT [facility] Hemoglobin 11.7 11.7 - 15.5 g/dL 07/29/2021 3:46 PM EDT [facility] Hematocrit 35.4 35 - 47 % 07/29/2021 3:46 PM EDT [facility] MCV 88 80 - 100 fL 07/29/2021 3:46 PM EDT [facility] MCH 29.0 27 - 34 pg 07/29/2021 3:46 PM EDT [facility] MCHC 33.0 32 - 36 g/dL 07/29/2021 3:46 PM EDT [facility] RDW 15.5(H) 11.5 - 15.0 % 07/29/2021 3:46 PM EDT [facility] Platelets 247 150 - 450 X10E9/L 07/29/2021 3:46 PM EDT [facility] MPV 7.2 7 - 12 fL 07/29/2021 3:46 PM EDT [facility] % neutrophils 56.1 % 07/29/2021 3:46 PM EDT [facility] % lymphocytes 29.3 % 07/29/2021 3:46 PM EDT [facility] % monocytes 9.9 % 07/29/2021 3:46 PM EDT [facility] % eosinophils 3.7 % 07/29/2021 3:46 PM EDT [facility] % Basophils 1.0 % 07/29/2021 3:46 PM EDT [facility] Neutrophils Absolute (A) 3.9 1.5 - 6.6 X10E9/L 07/29/2021 3:46 PM EDT [facility] Lymphocytes Absolute 2.1 1.0 - 3.5 X10E9/L 07/29/2021 3:46 PM EDT [facility] Monocytes Absolute 0.7 0 - 0.9 X10E9/L 07/29/2021 3:46 PM EDT [facility] Eosinophils Absolute 0.3 0.0 - 0.4 X10E9/L 07/29/2021 3:46 PM EDT [facility] Basophils Absolute 0.1 0.0 - 0.2 X10E9/L 07/29/2021 3:46 PM EDT [facility] Blood / Unknown 07/29/2021 1 1:32 AM EDT 07/29/2021 11:33 AM EDT us Mike Burgess MD LAB BLOOD ORDERABLES Final Result [facility] [address] [facility] [address] [place] [address] * (ABNORMAL) Basic Metabolic Panel (07/29/2021 11:32 AM EDT) Sodium 142 134 - 146 mmol/L 07/29/2021 5:13 PM EDT [facility] Potassium, Bld 4.2 3.5 - 5.0 mmol/L 07/29/2021 5:13 PM EDT [facility] Chloride 103 98 - 109 mmol/L 07/29/2021 5:13 PM EDT [facility] CO2 25 22 - 32 mmol/L 07/29/2021 5:13 PM EDT [facility] Anion gap 14 5 - 15 mmol/L 07/29/2021 5:13 PM EDT [facility] BUN 27 5 - 27 mg/dL 07/29/2021 5:13 PM EDT [facility] Creatinine 1.12(H) 0.40 - 1.00 mg/dL 07/29/2021 5:13 PM EDT [facility] Comment:METHOD TRACEABLE TO IDMS STANDARD Glucose 104(H) 65 - 99 mg/dL 07/29/2021 5:13 PM EDT [facility] Calcium 9.9 8.5 - 10.5 mg/dL 07/29/2021 5:13 PM EDT [facility] GFR MDRD Non Af Amer 48(L) >59 ml/min/1.7 3sq.m 07/29/2021 5:13 PM EDT [facility] GFR MDRD Af Amer 58(L) >59 ml/min/1.7 3sq.m 07/29/2021 5:13 PM EDT [facility] PLASMA 07/29/2021 11:3 2 AM EDT 07/29/2021 11:33 AM EDT us Mike Burgess MD LAB BLOOD ORDERABLES Final Result [facility] [address] [facility] [address] [place] [address] documented in this encounter Visit Diagnoses Diagnosis Paroxysmal atrial fibrillation ([facility]-HCC)- Primary Atrial fibrillation documented in this encounter Additional Health Concerns Infection Onset Date Last Indicated Resolved Time COVID-19 Rule-Out 08/02/2021 08/02/2021 08/03/2021 1:10 AM EDT Assessment Noted Time PHQ-9 Depression Total Score: 0 04/24/20 20 10:41 AM EST documented as of this encounter Care Teams Gasoline Truck Operator Relationship Specialty Start Date End Date Marine Glass MD [address] [place] [address] PCP - General 07/15/23 documented as of this encounter
--- OUTSIDE RECORDS SUMMARY | 2025-02-03 09:35 | XMS_ITS | Encounter Summary ---
Author Organization [facility] Address [id number] [address] [place] [address] Care Team Providers Care Vehicle Detailer Name Role Phone Marine Glass MD Primary Care Provider [phone] Reason for Visit * Reason Comments Med Refill Encounter Details Date Type Department Care Team (Late st Contact Info) Description 03/28/2019 Refill [facility] [address] [place] [address] Miko Vasquez, RAILWAY SIGNAL TECHNICIAN-PATIENT SERVICES TECHNICIAN [address] [place] [address] Med Refill Social History Tobacco Use Types [...] Notes * Telephone Encounter - Divine Kaur APRN-PATIENT SERVICES TECHNICIAN - 03/28/2019 12:42 AM EST Patient needs [...] 39 - 130 U/L 04/07/2019 4:18 PM [facility] AST 23 0 - 41 U/L 04/07/2019 4:18 PM [facility] ALT 14 0 - 31 U/L 04/07/2019 4:18 PM [facility] Total Bilirubin 0.4 0.3 - 1.2 mg/dL 04/07/2019 4:18 PM [facility] Bilirubin, direct 0.1 0.0 - 0.4 mg/dL 04/07/2019 4:18 PM [facility] Albumin 4.0 3.2 - 5.3 g/dL 04/07/2019 4:18 PM [facility] Total Protein 7.3 6.0 - 8.0 g/dL 04/07/2019 4:18 PM [facility] Serum / Unknown 04/07/2019 1 1:04 AM EST 04/07/2019 11:05 AM EST us Divine HANEY LAB BLOOD ORDERABLES Final Result [facility] [address] [facility] [place] [address] documented in this encounter Visit Diagnoses Diagnosis Paroxysmal atrial fibrillation ([facility]-H[facility])- Primary Atrial fibrillation documented in this encounter Additional Health Concerns Infection Onset Date Last Indicated Resolved Time COVID-19 Rule-Out 05/20/2021 05/20/2021 05/20/2021 6:32 PM EST COVID-19 Rule-Out 08/02/2021 08/02/2021 08/03/2021 1:10 AM EDT documented as of this encounter Care Teams Vehicle Detailer Relationship Specialty Start Date End Date Marine Glass MD [address] [place] [id number] PCP - General 07/15/23 documented as of this encounter
--- OUTSIDE RECORDS SUMMARY | 2025-02-03 09:36 | XMS_ITS | Encounter Summary ---
Author Organization [facility] Address [address] [place] [address] Care Team Providers Care Timber Framer Helper Name Role Phone Marine Glass MD Primary Care Provider [phone] Source Comments In the event this information is protected by the Federal Confidentiality of Alcohol and Drug AbusePatient Records regulations: The Federal rules restrict any use of the information to criminally investigate or prosecute any alcohol or drug abuse patient.[facility] Encounter Details Date Type Department Care Team (Late st Contact Info) Description 12/21/2024 Results Follow-Up [facility] [address] [place], [place] [id number] [facility] Social History Tobacco Use Types Packs/Day Years [...] is lower risk 4 12/19/2024 Data from: https://www.neighborhoodatlas.medicine.[facility].edu/. Last address used for calculation [address] [address] 12/19/2024 Comments No Sex and Gender Information Value Date Recorded Sex Assigned at Not on file Legal Sex Female 8:44 AM EST Gender Identity Not on file Sexual Orientation Not on file documented as of this encounter Plan of Treatment Not on file documented as of this encounter Visit Diagnoses Not on filedocumented in this encounter Care Teams Timber Framer Helper Relationship Specialty Start Date End Date Marine Glass MD [address] [place] [id number] PCP - General Family Medicine 11/26/15 documented as of this encounter
--- OUTSIDE RECORDS SUMMARY | 2025-02-03 09:36 | XMS_ITS | Encounter Summary ---
Author Organization [facility] Address [facility] [id number] [address] [place] [address] Care Team Providers Care Mining Analyst Name Role Phone Marine Glass MD Primary Care Provider Encounter Details Date Type Department Care Team (Late st Contact Info) Description 03/31/2022 Orders Only [facility] [address] [place] [id number] Jacqueline Sparrow, RN Hypokalemia (Primary Dx) Social [...] - 5.0 mmol/L 04/14/2022 3:42 PM EST [facility]AS[facility] 04/14/2022 11:1 9 AM EST 04/14/2022 11:20 AM EST us Mike Craft MD LAB BLOOD ORDERABLES Final Re sult [facility] [address], [address] [place] [address] documented in this encounter Visit Diagnoses Diagnosis Hypokalemia- Primary Hypopotassemia documented in this encounter Additional Health Concerns Assessment Noted Time PHQ-9 Depression Total Score: 0 04/24/20 20 10:41 AM EST documented as of this encounter Care Teams Mining Analyst Relationship Specialty Start Date End Date Marine Glass MD [address] [place] [id number] PCP - General 07/15/23 documented as of this encounter
--- OUTSIDE RECORDS SUMMARY | 2025-02-03 09:36 | XMS_ITS | Encounter Summary ---
Author Organization [facility] Address [address] [place] [address] Care Team Providers Care Development Editor Name Role Phone Marine Glass MD Primary Care Provider [phone] Encounter Details Date Type Department Care Team (Late st Contact Info) Description 09/26/2022 Abstract [facility] [address] [place] [address] Melchor Rivera DO [address] [place] [address] Social History Tobacco Use Types Packs/Day Years [...] on filedocumented in this encounter Care Teams Development Editor Relationship Specialty Start Date End Date Marine Glass MD PCP - General Family Medicine 09/26/22 documented as of this encounter
--- OUTSIDE RECORDS SUMMARY | 2025-02-03 09:36 | XMS_ITS | Clinical Summary ---
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 Encounters Date Type Department Care Team Description 12/21/2024 Results Follow-Up [facility] [address] [place] [address] Sara White RPh 12/18/2024 8:17 PM EDT - 12/19/2024 1:18 AM EDT Emergency [facility] Emergency Department [address] [place] [address] Govind Lopez DO Near syncope Discharge Disposition: Home 12/18/2024 Travel from Last 3 Months Immunizations Immunization Administration Dates Next Due COVID-19 original vaccine, a ge 12+ yr, monovalent (Drywave - PURPLE TOP) 06/20/2020,05/18/2020 influenza (HD-IIV3) vaccine, [...] is lower risk 4 12/19/2024 Data from: https://www.neighborhoodatlas.medicine.[facility].edu/. Last address used for calculation [address] 12/19/2024 Comments No Sex and Gender Information Value Date Recorded Sex Assigned at Not on file Legal Sex Female 8:44 AM EST Gender Identity Not on file Sexual Orientation Not on file Last Filed Vital Signs Vital Sign Reading Time Taken Comments Blood Pressure 117/55 12/19/2024 12:59 AM EDT Pulse 65 12/19/2024 12:59 AM EDT Temperature 36.6 C (97.8 F) 12/18/2024 8:19 PM EDT Respiratory Rate 20 12/19/2024 12:59 AM EDT Oxygen Saturation 94% 12/19/2024 12:59 AM EDT Inhaled Oxygen Concentration - - Weight 78 kg (172 lb) 12/18/2024 8:19 PM EDT Height 165.1 cm (5' 5 ) 12/18/2024 8:19 PM EDT Body Mass Index 28.62 12/18/2024 8:19 PM EDT Plan of Treatment Health Maintenance Due Date Last Done Comments Anxiety Screening 07/07/1965 Depression Screening 07/07/1965 DTaP,Tdap,Td Vaccine (1 - Tdap) 07/07/1966 Shingrix Vaccine (1 of 2) 07/07/1997 Bone Density Screening 07/07/2012 Advance Directive Discussion 05/04/2024 Medicare Advantage Annual Wellness Visit 05/04/2024 Influenza Vaccine (#1) 2025 , 02/10/2023, 02/01/2022, Additional history exists Diabetes Screening 12/19/2027 12/18/2024, 0 11/08/2024, 07/15/2023, Additional history exists Pneumococcal Vaccine: 50+ Completed 2017, 02/17/2017, 02/05/2017, Additional history exists Hepatitis C Screening Completed 10/21/2018 RSV Vaccine Completed 02/10/2023 Mammogram Screening Discontinued 09/30/2023, 09/27/2022, 09/27/2021, Additional history exists Procedures Procedure Name Priority Date/Time Associated Diagnosis Comments HIGH SENSITIVITY TROPONIN T (THIRD) 3 HRS AFTER INITIAL STAT 12/19/2024 12:29 AM EDT URINE CULTURE STAT 12/19/2024 12:06 AM EDT URINALYSIS (WITH MICROSCOPIC) WITH CULTURE IF INDICATED STAT 12/19/2024 12:06 AM EDT CTA CHEST (NONGATED) W IVCON PE STAT 12/18/2024 10:[address] BRAIN WO IVCON STAT 12/18/2024 10: 25 PM EDT HIGH SENSITIVITY TROPONIN T (SECOND) STAT 12/18/2024 9:42 PM EDT XR CHEST 1V FRONTAL PORT STAT 12/18/2024 8:46 PM EDT PROTHROMBIN TIME STAT 12/18/2024 8:39 PM EDT CBC + DIFF STAT 12/18/2024 8:39 PM EDT NT PRO BNP STAT 12/18/2024 8:39 PM EDT ALCOHOL/ETHANOL BLD STAT 12/18/2024 8 :39 PM EDT HIGH SENSITIVITY TROPONIN T (INITIAL) STAT 12/18/2024 8:39 PM EDT CK CREATINE KINASE STAT 12/18/2024 8: 39 PM EDT LIPASE BLD STAT 12/18/2024 8:39 PM EDT MAGNESIUM BLD STAT 12/18/2024 8:39 PM EDT COMPREHENSIVE METABOLIC PANEL STAT 12/18/2024 8:39 PM EDT ECG COMPLETE STAT 12/18/2024 8:29 PM EDT EKG Routine 12/18/2024 8:27 PM EDT from Last 3 Months Results * (ABNORMAL) HIGH SENSITIVITY TROPONIN T (THIRD) 3 HRS AFTER INITIAL (12/19/2024 12:29 AM EDT) MARIE High Sensitivity 13(H) <12 ng/L 12/19/2024 12:56 AM EDT [facility] Blood BLOOD SPECIMEN / Unknown Venipuncture / Unknown 12/19/2024 12:29 AM EDT 12/19/2024 12:33 AM EDT us Govind Lopez DO LABORATORY Final Result [facility] [address] [facility] [place] [address], [place] * (ABNORMAL) URINE CULTURE IF INDICATED (12/19/2024 12:06 AM EDT) Culture, Urine Mixed microbiota, including predominantly: 12/21/2024 7:40 AM EDT [facility] Culture, Urine >=100,000 CFU/ml Escherichia coli(A) MINIMUM INHIBITORY CONCENTRATION (VITEK) 12/21/2024 7:40 AM EDT [facility] Urine MID-STREAM URINE SPECIMEN / Unknown Non Blood / Unknown 12/19/2024 12:06 AM EDT 12/19/2024 12:12 AM EDT Narrative [facility] - 12/21/2024 7:40 AM EDT This test was developed and its performance characteristics determined by the [facility] It has not been cleared or approved by the FDA. -[facility] is regulated under CLIA as qualified to perform high-complexity testing. This test is used for clinical purposes. It should not be regarded as investigational or for research. Organism Antibiotic Method Susceptibility Escherichia coli Ampicillin MINIMUM INHIBIT ORY CONCENTRATION(VITEK) >=32: Resistant Escherichia coli Cefazolin MINIMUM INHIBIT ORY CONCENTRATION(VITEK) <=4: Susceptible Comment:For uncompli cated urinary tract infections, cefazolin results can be used to predict susceptibility or resistance to cephalexin. Escherichia coli Ceftriaxone MINIMUM INHIBIT ORY CONCENTRATION(VITEK) <=1: Susceptible Escherichia coli Cefepime MINIMUM INHIBIT ORY CONCENTRATION(VITEK) <=1: Susceptible Escherichia coli Ertapenem MINIMUM INHIBIT ORY CONCENTRATION(VITEK) <=0.5: Susceptible Escherichia coli Meropenem MINIMUM INHIBIT ORY CONCENTRATION(VITEK) <=0.25: Susceptible Escherichia coli Ampicillin/Sulbact MINIMUM INHI BITORY CONCENTRATION(VITEK) 16: Intermediate Escherichia coli Piperacillin/Tazobac MINIMUM IN HIBITORY CONCENTRATION(VITEK) <=4: Susceptible Escherichia coli Gentamicin MINIMUM INHIBIT ORY CONCENTRATION(VITEK) >=16: Resistant Escherichia coli Tobramycin MINIMUM INHIBIT ORY CONCENTRATION(VITEK) 4: Intermediate Escherichia coli Amikacin MINIMUM INHIBIT ORY CONCENTRATION(VITEK) <=2: Susceptible Escherichia coli Trimeth sulfameth MINIMUM INHIB ITORY CONCENTRATION(VITEK) >=320: Resistant Escherichia coli Ciprofloxacin MINIMUM INHIBIT ORY CONCENTRATION(VITEK) <=0.25: Susceptible Escherichia coli Nitrofurantoin MINIMUM INHIBIT ORY CONCENTRATION(VITEK) <=16: Susceptible us Govind Lopez DO MICROBIOLOGY Final Result [facility] [address] [address], [place] * (ABNORMAL) URINALYSIS (WITH MICROSCOPIC) WITH CULTURE IF INDICATED (12/19/2024 12:06 AM EDT) Color Light Yellow yellow 12/19/2024 12:22 AM [facility] Clarity Turbid(A) Clear 12/19/2024 12:22 AM [facility] Glucose, Urine Negative Trace, Negative 12/19/2024 12:22 AM [facility] Bilirubin, Urine Negative Negative 12/20/19 12:22 AM [facility] Ketones, Urine Negative Negative, Trace 12/19/2024 12:22 AM [facility] Specific [place], Ur 1.028 1.005 - 1.030 12/19/2024 12:22 AM [facility] Hemoglobin/Blood ,Ur Trace Negative, Trace 12/19/2024 12:22 AM [facility] pH, Urine 6.0 5.0 - 8.0 12/19/2024 12:22 AM [facility] Protein, Urine Negative Trace, Negative 12/19/2024 12:22 AM [facility] Urobilinogen Normal Normal 12/19/2024 12:22 AM [facility] Nitrites 2+(A) Negative 12/19/2024 12:22 AM [facility] Leuk Esterase 500 Felipe/uL(A) Negative, 25 Felipe/uL 12/19/2024 12:22 AM [facility] WBC, Urine >25 /HPF(A) 0-5 /HPF 12/19/2024 12:22 AM [facility] RBC, Urine 6-10 /HPF(A) 0-3 /HPF 12/19/2024 12:22 AM [facility] Bacteria Rare(A) None Seen /HPF 12/19/2024 12:22 AM [facility] Squamous Epithelial Cells Few /HPF 12/19/2024 12:22 AM [facility] Casts, Hyaline 1-3 /LPF(A) 0 /LPF 12:22 AM [facility] Urine MID-STREAM URINE SPECIMEN / Unknown Non Blood / Unknown 12/19/2024 12:06 AM EDT 12/19/2024 12:12 AM EDT us Govind Lopez DO LABORATORY Final Result [facility] [address] [facility] [place] [address], [place] * CTA CHEST (NONGATED) W IVCON PE (12/18/2024 10:27 PM EDT) Anatomical Region Laterality Modality Chest Computed Tomogra phy 12/18/2024 10:2 7 PM EDT Impressions 12/19/2024 12:47 AM EDT IMPRESSION: 1. No CT evidence of pulmonary thromboembolism. 2. No acute pulmonary process. 3. Calcified granulomas and lymph nodes. [employer]: SHIVANI Transcribe Date/Time: Dec 19 2024 12:32A Dictated by : JASON HINKLE MD This examination was interpreted and the report reviewed and electronically signed by: JASON HINKLE MD on Dec 19 2024 12:45AM EST Narrative 12/19/2024 12:47 AM EDT * * *Final Report* * * DATE OF EXAM: Dec 18 2024 10:27PM [facility] 0564 - CTA CHEST (NON GATED) W [...] the stomach. Localizer images: No additional findings. Procedure Note Provider, [facility] - 12/19/2024 * * *Final Report* * * DATE OF EXAM: Dec 18 2024 10:27PM [facility] 0564 - CTA CHEST (NON GATED) W [...] the stomach. Localizer images: No additional findings. IMPRESSION IMPRESSION: 1. No CT evidence of pulmonary thromboembolism. 2. No acute pulmonary process. 3. Calcified granulomas and lymph nodes. Vp Customer Development: [facility] Transcribe Date/Time: Dec 19 2024 12:32A Dictated by : JASON HINKLE MD This examination was interpreted and the report reviewed and electronically signed by: JASON HINKLE MD on Dec 19 2024 12:45AM EST Govind Lopez DO CT-PAMA Final Result * CT BRAIN WO IVCON (12/18/2024 10:25 PM EDT) Anatomical Region Laterality Modality Head Computed Tomogra phy 12/18/2024 10:2 4 PM EDT Impressions 12/19/2024 12:14 AM EDT IMPRESSION: Brain CT shows no evidence of an acute intracranial abnormality. Chronic intracranial changes and other details above. [employer]p Customer Development: [facility] Transcribe Date/Time: Dec 18 2024 11:53P Dictated by : LOVE VALENCIA MD This examination was interpreted and the report reviewed and electronically signed by: LOVE VALENCIA MD on Dec 19 2024 12:12AM EST Narrative 12/19/2024 12:14 AM EDT * * *Final Report* * * DATE OF EXAM: Dec 18 2024 10:24PM [facility] 0504 - CT BRAIN WO IVCON / [...] Other: No depressed skull fracture is seen. Hospital Chief Executive Officer (topogram) images: Degenerative spine changes noted. Non-diagnostic otherwise. Procedure Note Provider, [facility] - 12/19/2024 * * *Final Report* * * DATE OF EXAM: Dec 18 2024 10:24PM [facility] 0504 - CT BRAIN WO IVCON / [...] Other: No depressed skull fracture is seen. Hospital Chief Executive Officer (topogram) images: Degenerative spine changes noted. Non-diagnostic otherwise. IMPRESSION IMPRESSION: Brain CT shows no evidence of an acute intracranial abnormality. Chronic intracranial changes and other details above. Vp Customer Development: [facility] Transcribe Date/Time: Dec 18 2024 11:53P Dictated by : LOVE VALENCIA MD This examination was interpreted and the report reviewed and electronically signed by: LOVE VALENCIA MD on Dec 19 2024 12:12AM EST us Govind Lopez DO CT-PAMA Final Result * (ABNORMAL) HIGH SENSITIVITY TROPONIN T (SECOND) (12/18/2024 9:42 PM EDT) MARIE High Sensitivity 12(H) <12 ng/L 12/18/2024 10:13 PM EDT [facility] Blood BLOOD SPECIMEN / Unknown Venipuncture / Unknown 12/18/2024 9:42 PM EDT 12/18/2024 9:46 PM EDT us Govind Lopez DO LABORATORY Final Result [facility] [address] [facility] [place] [address], [place] * XR CHEST 1V FRONTAL PORT (12/18/2024 8:46 PM EDT) Anatomical Region Laterality Modality Chest Radiographic Samia ging 12/18/2024 8:46 PM EDT Impressions 12/18/2024 8:58 PM EDT IMPRESSION: Chronic changes as described above with no definite acute disease. [employer]p Customer Development: [facility] Transcribe Date/Time: Dec 18 2024 8:55P Dictated by : KATRIN PHILIP MD This examination was interpreted and the report reviewed and electronically signed by: KATRIN PHILIP MD on Dec 18 2024 8:56PM EST Narrative 12/18/2024 8:58 PM EDT * * *Final Report* * * DATE [...] patient is status post left breast/axillary surgery. Procedure Note Provider, [facility] - 12/18/2024 * * *Final Report* * * DATE [...] patient is status post left breast/axillary surgery. IMPRESSION IMPRESSION: Chronic changes as described above with no definite acute disease. [employer]p Customer Development: [facility] Transcribe Date/Time: Dec 18 2024 8:55P Dictated by : KATRIN PHILIP MD This examination was interpreted and the report reviewed and electronically signed by: KATRIN PHILIP MD on Dec 18 2024 8:56PM EST us Govind Lopez DO RAD-PAMA Final Result * MAGNESIUM (12/18/2024 8:39 PM EDT) Magnesium 2.0 1.7 - 2.3 mg/dL 12/18/2024 9:21 PM EDT [facility] Blood BLOOD SPECIMEN / Unknown Venipuncture / Unknown 12/18/2024 8:39 PM EDT 12/18/2024 8:47 PM EDT us Govind Lopez DO LABORATORY Final Result [facility] [address] [place] [address]. [place] [address], [place] * (ABNORMAL) HIGH SENSITIVITY TROPONIN T (INITIAL) (12/18/2024 8:39 PM EDT) MARIE High Sensitivity 14(H) <12 ng/L 12/18/2024 9:22 PM EDT [facility] Blood BLOOD SPECIMEN / Unknown Venipuncture / Unknown 12/18/2024 8:39 PM EDT 12/18/2024 8:47 PM EDT us Govind Lopez DO LABORATORY Final Result Performing Organization Address [facility]/ZIP Co de Phone Number [facility] [id number] [place] [address]. [place] [address], [place] * (ABNORMAL) NT PRO BNP (12/18/2024 8:39 PM EDT) NT Pro BNP 507(H) <450 pg/mL 12/18/2024 9:20 PM EDT [facility] Blood BLOOD SPECIMEN / Unknown Venipuncture / Unknown 12/18/2024 8:39 PM EDT 12/18/2024 8:47 PM EDT us Govind Lopez DO LABORATORY Final Result [facility] [id number] [place] [address]. [place] [address], [place] * PROTHROMBIN TIME (12/18/2024 8:39 PM EDT) PT Sec 11.7 9.7 - 13.0 sec 12/18/2024 9:18 PM EDT [facility] INR 1.1 0.9 - 1.3 12/18/2024 9:18 PM EDT [facility] Comment: Vitamin K Antagonist (VKA) Therapeutic Range: INR 2 to 3 (Target INR of 2.5) Note: For patients treated with VKA drugs, such as warfarin, the [place] [employer] 2012 Guideline recommends [...] Chest 2012, 141:7S-47S Jw RA, et al. [facility] 2017, 70: 252-289 Blood BLOOD SPECIMEN / Unknown Venipuncture / Unknown 12/18/2024 8:39 PM EDT 12/18/2024 8:47 PM EDT us Govind Lopez DO LABORATORY Final Result Performing Organization Address City/[facility]/ZIP Co de Phone Number [facility] [address] [facility] [place] [address], * LIPASE (12/18/2024 8:39 PM EDT) Lipase 24 16 - 61 U/L 12/18/2024 9:21 PM EDT [facility] Blood BLOOD SPECIMEN / Unknown Venipuncture / Unknown 12/18/2024 8:39 PM EDT 12/18/2024 8:47 PM EDT us Govind Lopez DO LABORATORY Final Result [facility] [address] [facility] [place] [address], [place] * (ABNORMAL) COMPREHENSIVE METABOLIC PANEL (12/18/2024 8:39 PM EDT) [facility] Protein, Total 6.4 6.3 - 8.0 g/dL 12/18/2024 9:21 PM [facility] Albumin 3.7(L) 3.9 - 4.9 g/dL 12/18/2024 9:21 PM [facility] Calcium, Total 9.4 8.5 - 10.2 mg/dL 12/18/2024 9:21 PM [facility] Bilirubin, Total 0.2 0.2 - 1.3 mg/dL 12/18/2024 9:21 PM [facility] Alkaline Phosphatase 55 34 - 123 U/L 12/18/2024 9:21 PM [facility] AST 16 13 - 35 U/L 12/18/2024 9:21 PM [facility] ALT 9 7 - 38 U/L 12/18/2024 9:21 PM [facility] Glucose 153(H) 74 - 99 mg/dL 12/18/2024 9:21 PM [facility] Comment: The [place] Diabetes Association (ADA) provides guidance for cutoff [...] Standards of Medical Care in Diabetes 2016, [place] [employer] Association. Diabetes Care. 2016.39(Suppl 1). BUN 22(H) 7 - 21 mg/dL 12/18/2024 9:21 PM [facility] Creatinine 1.24(H) 0.58 - 0.96 mg/dL 12/18/2024 9:21 PM [facility] Sodium 138 136 - 144 mmol/L 12/18/2024 9:21 PM T [facility] Potassium 3.1(L) 3.7 - 5.1 mmol/L 12/18/2024 9:21 PM T [facility] Chloride 99 98 - 107 mmol/L 12/18/2024 9:21 PM T [facility] CO2 24 22 - 30 mmol/L 12/18/2024 9:21 PM [facility] Anion Gap 15 8 - 15 mmol/L 12/18/2024 9:21 PM [facility] Estimated Glomerular Filtration Rate 45(L) >=60 mL/min/1. 73m 12/18/2024 9:21 PM [facility] Comment:Estimated Glomerular Filtration Rate (eGFR) is calculated using the 2020 CKD-EPI creatinine equation. This equation utilizes serum creatinine, sex, and age as parameters. The creatinine assay has traceable calibration to isotope dilution- mass spectrometry. Refer to KDIGO guidelines for clinical interpretation. In patients with unstable renal function, e.g. those with acute kidney injury, the eGFR may not accurately reflect actual GFR. Blood BLOOD SPECIMEN / Unknown Venipuncture / Unknown 12/18/2024 8:39 PM EDT 12/18/2024 8:47 PM EDT us Govind Lopez DO LABORATORY Final Result Performing Organization Address City/[facility]/ZIP Co de Phone Number [facility] [address] [place] [address], [place] * (ABNORMAL) CREATINE KINASE/CK (12/18/2024 8:39 PM EDT) CK 37(L) 42 - 196 U/L 12/18/2024 9:21 PM EDT [facility] Blood BLOOD SPECIMEN / Unknown Venipuncture / Unknown 12/18/2024 8:39 PM EDT 12/18/2024 8:47 PM EDT us Govind Lopez DO LABORATORY Final Result [facility] [address] [place] [address], [place] * (ABNORMAL) COMPLETE BLOOD COUNT AND DIFFERENTIAL (12/18/2024 8:39 PM EDT) WBC 7.47 3.70 - 11.00 k/uL 12/18/2024 8:59 PM EDT [facility] RBC 3.79(L) 3.90 - 5.20 m/uL 12/18/2024 8:59 PM EDT [facility] Hemoglobin 12.3 11.5 - 15.5 g/dL 12/18/2024 8:59 PM T [facility] Hematocrit 36.9 36.0 - 46.0 % 12/18/2024 8:59 PM [facility] MCV 97.4 80.0 - 100.0 fL 12/18/2024 8:59 PM EDT [facility] MCH 32.5 26.0 - 34.0 pg 12/18/2024 8:59 PM T [facility] MCHC 33.3 30.5 - 36.0 g/dL 12/18/2024 8:59 PM T [facility] RDW-CV 11.9 11.5 - 15.0 % 12/18/2024 8:59 PM [facility] Platelet Count 209 150 - 400 k/uL 12/18/2024 8:59 PM [facility] MPV 8.7(L) 9.0 - 12.7 fL 12/18/2024 8:59 PM EDT [facility] Neutrophils % 33.0 % 12/18/2024 8:59 PM EDT [facility] Abs Neut 2.47 1.45 - 7.50 k/uL 12/18/2024 8:[facility] Lymphocytes % 51.7 % 12/18/2024 8:59 PM EDT [facility] Abs Lymph 3.86 1.00 - 4.00 k/uL 12/18/2024 8:59 PM EDT [facility] Monocytes % 9.4 % 12/18/2024 8:59 PM EDT [facility] Abs [place] 0.70 <0.87 k/uL 12/18/2024 8:59 PM EDT [facility] Eosinophils % 4.6 % 12/18/2024 8:59 PM EDT [facility] Abs Eosin 0.34 <0.46 k/uL 12/18/2024 8:59 PM EDT [facility] Basophils % 1.2 % 12/18/2024 8:59 PM EDT [facility] Abs Baso 0.09 <0.11 k/uL 12/18/2024 8:59 PM EDT [facility] Immature Granulocytes % 0.1 % 12/18/2024 8:59 PM EDT [facility] Abs Immature Gran <0.03 <0.10 k/uL 12/18/2024 8:59 PM EDT [facility] NRBC 0.0 /100 WBC 12/18/2024 8:59 PM EDT [facility] Absolute nRBC <0.01 <0.01 k/uL 12/18/2024 8:59 PM EDT [facility] Diff Type Auto 12/18/2024 8:59 PM EDT [facility] Blood BLOOD SPECIMEN / Unknown Venipuncture / Unknown 12/18/2024 8:39 PM EDT 12/18/2024 8:47 PM EDT us Govind Lopez DO LABORATORY Final Result [facility] [address] [place] [address], [place] * (ABNORMAL) ETHANOL/ALCOHOL (12/18/2024 8:39 PM EDT) Ethanol 105(H) <11 mg/dL 12/18/2024 9:19 PM EDT [facility] Comment:Values > 80 mg/dL ma y indicate intoxication Blood BLOOD SPECIMEN / Unknown Venipuncture / Unknown 12/18/2024 8:39 PM EDT 12/18/2024 8:47 PM EDT us Govind Lopez DO LABORATORY Final Result [facility] [address] [facility] [place] [address], [place] * EKG (12/18/2024 8:27 PM EDT) Ventricular Rate 53 BPM [facility] Atrial Rate 53 BPM [facility] P-R Interval 255 ms [facility] QRS Duration 125 ms [facility] QT Interval 458 ms [facility] QTC Calculation (Bazett) 430 ms [facility] Calculated P [place] 231 degrees [facility] Calculated R [place] -23 degrees [facility] Calculated T [place] 117 degrees [facility] 12/18/2024 8:27 PM EDT Impressions [facility] - 12/19/2024 1:04 AM EDT Sinus or ectopic atrial rhythm Prolonged MO intervalAbnormal ECG Confirmed by GOVIND LOPEZ DO ([id number]) on 12/19/2024 1:04:30 AM Narrative [facility] - 12/19/2024 1:04 AM EDT NAME : TCJANBETTIE PID : [id number] : 1945 Gender : Female Race : ORD : Procedure Date : Dec 18 2024 20:27:32 Edit Date : Dec 19 2024 01:04:35 Diagnosis: Sinus or ectopic atrial rhythm Prolonged MO intervalAbnormal ECG Confirmed by GOVIND LOPEZ DO ([id number]) on 12/19/2024 1:04:30 AM Test Reason : Location : 302 : ED AVED-12 Overread By : GOVIND LOPEZ DO Edited By : GOVIND LOPEZ DO Referred By : , Acquired by : , us [facility]cf Provider CARDIOLOGY_AL Final Result Performing Organization Address City/State/[facility] Co de Phone Number [facility] [address] [facility] [place] [address], from Last 3 Months Insurance [employer] MEDICARE Care Teams Tile Burner Relationship Specialty Start Date End Date Marine Glass MD [address] [place] [address] PCP - General Family Medicine 11/26/15
--- OUTSIDE RECORDS SUMMARY | 2025-02-03 09:36 | XMS_ITS | Encounter Summary ---
Author Organization [facility] Address [id number] [address] [place] [address] Care Team Providers Care Knotter Hand Name Role Phone Marine Glass MD Primary Care Provider [phone] Reason for Visit * Reason Onset Date Comments Results 10/26/2017 Encounter Details Date Type Department Care Team (Late st Contact Info) Description 10/26/2017 Telephone [facility] [address] [place] [address] Jacqueline Sparrow, RICARDO Results Social [...] documented as of this encounter Care Teams Knotter Hand Relationship Specialty Start Date End Date Marine Glass MD [address] [place] [id number] PCP - General 07/15/23 documented as of this encounter
--- OUTSIDE RECORDS SUMMARY | 2025-02-03 09:36 | XMS_ITS | Clinical Summary ---
Author Organization [employer] Address [address] [place] [address] Care Team Providers Care Eye Technician Name Role Phone Marine Glass MD Primary Care Provider [phone] Allergies Active Allergy Reactions Criticality Noted Date [...] x 1 month, then 2x/week for maintainence, [facility]/pharmacy #[id number], 165, cm, 02/11/23 10:41:00 [...] = 0.6 oz pur e alcohol) social [facility] Utilities Answer Date Recorded In the past 12 months has th e [employer], gas, oil, or water [employer] threatened to shut off services in your [...] of 2) 07/07/1997 POTASSIUM 07/07/2024 2023, 06/25/2023 MAMMOGRAM SCREENING DISCUSSION 09/29/2024 09/30/2023, 09/27/2022, 09/27/2021, Additional history exists COVID-19 VACCINE ( season) 2025 02/08/2024, 02/10/2023, 08/13/2021, Additional history exists INFLUENZA VACCINE (#1) 2025 , 02/10/2023, 02/01/2022, Additional history exists PNEUMOCOCCAL VACCINE SERIES Completed 08/2017, 02/17/2017, 02/05/2017 RSV VACCINE Completed 02/10/2023 HEP B VACCINE Aged Out No longer orlando baxter based on patient's age to complete this topic Medical Devices Implanted Type Area Water Resources Engineer Device Identifier Shelf Expiration Date Model / Serial / Lot Anchors, 5.5 Non Punching - [id number] Implanted:Qty: 1 on 07/07/2023 by Miko Pascual MD at [facility] Right: Hip [employer] 10/31/2026 [id number] / / [id number] Anchors, 5.5 Non Punching - [id number] Implanted:Qty: 3 on 07/07/2023 by Miko Pascual MD at [facility] Right: Hip [employer] 05/03/2027 [id number] / / [id number] Procedures Procedure Name Priority Date/Time Associated Diagnosis Comments BASIC METABOLIC PANEL Today 2023 4:48 AM EST from Last 3 Months or Most Recently Relevant to Health Maintenance Results * (ABNORMAL) BASIC METABOLIC PANEL (2023 4:48 AM EST) Glucose 141(H) 70 - 100 MG/DL [address] Comment: NORMAL <100 mg/dL PREDIABETES 101-126 mg/dL DIABETES 126 mg/dL or higher BUN 30(H) 7 - 20 MG/DL [address] CREATININE SERUM 1.10 0.70 - 1.20 MG/DL [address] SODIUM 134(L) 137 - 145 MMOL/L [address] Potassium 3.8 3.5 - 5.1 MMOL/L [address] CHLORIDE 103 98 - 107 MMOL/L [address] Comment:Please note: Triglyc eride levels of 600mg/dL or higher may positively bias chloride results by approximately 2.1 mmol CARBON DIOXIDE (CO2) 30 22 - 30 MMOL/L [address] ANION GAP 1 MMOL/L [address] CALCIUM 8.7 8.4 - 10.2 MG/DL [address] ESTIMATED GFR, NON AMER 51 ml/min/1. 73sq.m [address] ESTIMATED GFR, 62 ml/min/1. 73sq[address]m [address] GFR COMMENT Average GFR for 70+ years old = 75. [address] Comment: Chronic Kidney disease, GFR = <60. Kidney failure, GFR = <15. The GFR estimate is not adjusted for extreme body surface area or acute process, nor has it been validated for women or ethnic groups other than and . Blood 2023 4:48 AM EST 2023 5:12 AM EST us Chance Mahoney MD CHEMISTRY ORDERABLES Final Resul t [address] [address] from Last 3 Months or Most Recently Relevant to Health Maintenance Insurance Medicare [employer] PPO Advance Directives For more information, please contact: [phone] (7:30 AM - 6PM [facility], Thursday-Thursday) Documents on File Type Date Recorded Patient Coin Machine Service Repairer Expl anation Advance Directives/Living Will 06/25/2023 9:17 AM DURABLE POWER OF MOLD DUMPER FOR HEALTHCARE 06/25/23 Advance Directives/Living Will 06/25/2023 9:13 AM LIVING WILL 06/25/23 * Full Code (Latest Code Status on File) Date Activated Date Inactivated Comments 07/07/2023 3:27 PM Care Teams Eye Technician Relationship Specialty Start Date End Date Marine Glass MD PCP - General Family Medicine 05/11/23
--- OUTSIDE RECORDS SUMMARY | 2025-02-03 09:36 | XMS_ITS | Clinical Summary ---
Author Organization [facility] Address [address] [facility], [address] [place] [address] Care Team Providers Care In Tube Conversion Technician Name Role Phone Marine Glass MD Primary Care Provider [phone] Allergies Active Allergy Reactions Criticality Noted Date [...] of Treatment Not on file Care Teams In Tube Conversion Technician Relationship Specialty Start Date End Date Marine Glass MD PCP - General Family Medicine 10/19/18
--- OUTSIDE RECORDS SUMMARY | 2025-02-03 09:36 | XMS_ITS | Encounter Summary ---
Author Organization [employer] Address [id number] [address] [place] [address] Care Team Providers Care Pig Farm Manager Name Role Phone Marine Glass MD Primary Care Provider [phone] Reason for Visit * Reason Onset Date Comments Med Refill 04/19/2018 Encounter Details Date Type Department Care Team (Late st Contact Info) Description 04/19/2018 Refill [facility] [address] [place] [phone] [place] [address] [place] [address] [id number] Social History Tobacco Use Types Packs/Day Years [...] documented as of this encounter Care Teams Pig Farm Manager Relationship Specialty Start Date End Date Marine Glass MD [address] [id number] PCP - General 07/15/23 documented as of this encounter
--- OUTSIDE RECORDS SUMMARY | 2025-02-03 09:36 | XMS_ITS | Clinical Summary ---
Author Organization [employer] Address [id number] [address] [place] [address] Care Team Providers Care Lining Finisher Name Role Phone Marine Glass MD Primary Care Provider [phone] Allergies Active Allergy Reactions Criticality Noted Date [...] (20 mg total) before bedtime. Active vitamins A,C,L-ggyl-qcibn r (ICAPS AREDS) 4,296 mcg-226 mg-90 mg capsule Take 1 capsule by mouth in the morning and 1 capsule before bedtime. 10/28/19 24 Active ELIQUIS 5 mg tabletIndication s:Paroxysmal atrial [...] MORNING 135 tablet 3 12/28/19 25 Active flecainide (TAMBOCOR) 50 mg tabletIndication s:Paroxysmal atrial fibrillation (CMS-HCC) TAKE 1 TABLET IN THE MORNING AND 1 TABLET BEFORE BEDTIME 180 tablet 3 01/18/20 25 Active hydroCHLOROthiaz rudolph (HYDRODIURIL) 25 mg tablet TAKE 1 TABLET DAILY 90 tablet 2 02/03/20 25 Active flecainide (TAMBOCOR) 50 mg tabletIndication s:Paroxysmal atrial fibrillation (CMS-HCC) Take 1 tablet (50 mg total) by mouth in the morning and 1 tablet (50 mg total) before bedtime. 180 tablet 1 07/29/19 25 025 Discontinued hydroCHLOROthiaz rudolph (HYDRODIURIL) 25 mg tablet TAKE 1 TABLET DAILY 90 tablet 11/04/19 25 025 Discontinued Active Problems Problem Noted Date Diagnosed Date Abnormal findings diagnostic imaging of heart and coronary circulation 07/29/2021 Overview (07/29/2021): Added automatically from request for surgery [id number] Dyspnea 06/30/2018 Overview (06/30/2018): Added automatically from request for surgery [id number] Palpitations 06/30/2018 Overview (06/30/2018): Added automatically from request for surgery [id number] SOB (shortness of breath) 05/12/2018 Hypertension 10/06/2017 Paroxysmal atrial fibrillation 08/31/2017 Resolved Problems Problem Noted Date Diagnosed Date Resolved Date Preoperative clearance 12/29/202211/08 Unstable angina 07/29/2021 08/16/2021 Overview (07/29/2021): Added automatically from request for surgery [id number] SOB (shortness of breath) 05/12/2018 SVT (supraventricular tachycardia) 11/16/2017 12/30/2019 Encounters Date Type Department Care Team Description 01/31/2025 Refill [facility] [address] [place] [address] Jovita Hernandez, STOCK ASSOCIATE-TECHNOLOGY APPLICATIONS ENGINEER Med Refill 01/17/2025 Refill [facility] [address] [place] [address] Jovita Hernandez, STOCK ASSOCIATE-TECHNOLOGY APPLICATIONS ENGINEER Med Refill 12/27/2024 Refill [facility] [address] [place] [address] Divine Kaur STOCK ASSOCIATE-TECHNOLOGY APPLICATIONS ENGINEER Med Refill 11/24/2024 Refill [facility] [address] [place] [address] Jack Smith, STOCK ASSOCIATE-TECHNOLOGY APPLICATIONS ENGINEER Med Refill 11/15/2024 Refill [facility] [address] [place] [phone] Vinicio Causey PA-C Med Refill 11/09/2024 Results Follow-Up [facility] [address] [place] [address] Alyce Deras RN CBC 11/08/2024 9:00 AM EDT Office Visit [facility] [address] [place] [phone] Karen Mart APRN-TECHNOLOGY APPLICATIONS ENGINEER Paroxysmal atrial fibrillation (CMS-HCC) (Primary Dx); Primary hypertension; Palpitations 11/08/2024 Results Follow-Up [facility] [address] [place] [address] Sander Pollack RN Comprehensive metabolic panel, Magnesium 11/08/2024 Refill [facility] [address] [place] [address] Rosangela Montague APRN-CNP Med Refill 11/06/2024 Travel from Last 3 Months Family History Medical History Relation Name Comments Prostate cancer Brother 1 Anselmo Moon Prostate cancer Brother 2 Anselmo Moon Cancer Father Bertram Moon Lung cancer Father Bertram Moon Arthritis Mother Marilu Moon Cancer Mother Marilu Moon Colon cancer Mother Marilu Moon Breast cancer Niece Arrhythmia Sister 1 Marine Olivaerna Colon cancer Sister 1 Marine Olivaleigh ann Parkinsons Parkinsonism Sister 1 Marine Olivaerna Colon cancer Sister 3 Marine Olivaleigh ann Parkinsons Relation Name Status Comments Brother 1 Anselmo Moon Alive Brother 2 Anselmo Moon Alive Father Bertram Moon Mother Marilu Moon Niece Other Sister 1 Marine Sberna Sister 2 Leonora beltrán Alive Sister 3 Marine Olivaerisabell Alive Social History Tobacco Use Types Packs/Day [...] 04/08/2017, 08/18/2012 COVID-19 Vaccine (2023-2 5 season) 2025 02/08/2024, 02/10/2023, 08/13/2021, Additional history exists Influenza Vaccine 01/02/2025 02/08/2024, , 02/01/2022, Additional history exists Tobacco Screening 11/08/2025 11/08/2024 Medical Devices Not on file Procedures Procedure Name Priority Date/Time Associated Diagnosis Comments CBC (NO DIFF) Routine 11/09/2024 10:16 AM EDT Paroxysmal atrial fibrillation (CMS-HCC) Benign hypertension MAGNESIUM Routine 11/08/2024 9:52 AM EDT Primary hypertension 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) COMPREHENSIVE METABOLIC PANEL Routine 11/08/2024 9:52 AM EDT Primary hypertension Coronary artery disease involving [place] coronary artery of [place] heart with unstable angina pectoris ([facility]-HCC) POCT EKG Routine 11/08/2024 Paroxysmal atrial fibrillation ([facility]-HCC) HM COLONOSCOPY Routine 08/18/2012 from Last 3 Months or Most Recently Relevant to Health Maintenance Results * CBC (11/09/2024 10:16 AM EDT) [facility] WBC 5.1 4 - 11 x10E9/L 11/09/2024 1:58 PM EDT [facility] RBC Count 4.16 3.8 - 5.2 X10E12/L 11/09/2024 1:58 PM EDT [facility] Hemoglobin 13.6 11.7 - 15.5 g/dL 11/09/2024 1:58 PM EDT [facility] Hematocrit 40.0 35 - 47 % 11/09/2024 1:58 PM EDT [facility] MCV 96 80 - 100 fL 11/09/2024 1:58 PM EDT [facility] MCH 32.7 27 - 34 pg 11/09/2024 1:58 PM EDT [facility] MCHC 34.1 32 - 36 g/dL 11/09/2024 1:58 PM EDT [facility] RDW 12.8 11.5 - 15 % 11/09/2024 1:58 PM EDT [facility] Platelet Count 206 150 - 450 X10E9/L 11/09/2024 1:58 PM EDT [facility] MPV 7.0 7 - 12 fL 11/09/2024 1:58 PM EDT [facility] Blood Venous blood / Unknown Venipuncture / Unknown 11/09/2024 10:16 AM EDT 11/09/2024 10:16 AM EDT Rosangela Montague STOCK ASSOCIATE-TECHNOLOGY APPLICATIONS ENGINEER LAB BLOOD ORDERABLES Final Result [facility] [address] [place] [address], * Magnesium (11/08/2024 9:52 AM EDT) MAGNESIUM 1.9 1.8 - 2.6 mg/dL 11/09/2024 1:19 AM EDT [facility] Blood Venous blood / Unknown Venipuncture / Unknown 11/08/2024 9:52 AM EDT 11/08/2024 9:52 AM EDT Divine Kaur STOCK ASSOCIATE-TECHNOLOGY APPLICATIONS ENGINEER LAB BLOOD ORDERABLES Final Result Performing Organization Address City/[facility]/ZIP Co de Phone Number [facility] [address] [place] [address], * (ABNORMAL) Comprehensive metabolic panel (11/08/2024 9:52 AM EDT) SODIUM 141 134 - 146 mmol/L 11/08/2024 2:01 PM EDT [facility] POTASSIUM 3.9 3.5 - 5.0 mmol/L 11/08/2024 2:01 PM EDT [facility] CHLORIDE 101 98 - 109 mmol/L 11/08/2024 2:01 PM EDT [facility] CARBON DIOXIDE 32 22 - 32 mmol/L 11/08/2024 2:01 PM EDT [facility] ANION GAP 8 5 - 15 mmol/L 11/08/2024 2:01 PM EDT [facility] BLOOD UREA NITROGEN 27 5 - 27 mg/dL 11/08/2024 2:01 PM EDT [facility] CREATININE 1.06(H) 0.40 - 1.00 mg/dL 11/08/2024 2:01 PM EDT [facility] Comment:METHOD TRACEABLE TO IDMS STANDARD GLUCOSE 109(H) 65 - 99 mg/dL 11/08/2024 2:01 PM EDT [facility] CALCIUM 10.0 8.5 - 10.5 mg/dL 11/08/2024 2:01 PM EDT [facility] TOTAL PROTEIN 7.2 6.0 - 8.0 g/dL 11/08/2024 2:01 PM EDT [facility] ALBUMIN 4.2 3.2 - 5.3 g/dL 11/08/2024 2:01 PM EDT [facility] ALKALINE PHOSPHATASE 48 39 - 130 U/L 11/08/2024 2:01 PM EDT [facility] AST 17 <=41 U/L 11/08/2024 2:01 PM EDT [facility] ALT 10 <=31 U/L 11/08/2024 2:01 PM EDT [facility] BILIRUBIN,TOTAL 0.5 0.3 - 1.2 mg/dL 11/08/2024 2:01 PM EDT [facility] EGFR Non-Race Dependent 54(L) >=60 ml/min/1.7 3sq.m 11/08/2024 2:01 PM EDT [facility] Comment: Reported eGFR is based on the CKD-EPI 2020 equation that does not use a race coefficient. Blood Venous blood / Unknown Venipuncture / Unknown 11/08/2024 9:52 AM EDT 11/08/2024 9:52 AM EDT Divine Kaur STOCK ASSOCIATE-TECHNOLOGY APPLICATIONS ENGINEER LAB BLOOD ORDERABLES Final Result [facility] [address] [place] [address], [place] [phone] * POCT EKG (11/08/2024) us Karen Mart STOCK ASSOCIATE-TECHNOLOGY APPLICATIONS ENGINEER ECG ORDERABLES Final Resu lt MANUALLY TRANSCRIBED RESULTS * COLONOSCOPY (08/18/2012) HM Colonoscopy COLONOSCOPY [facility] EXTERNAL NON-INTERFACE D REF LAB us Scanning Provider External HEALTH MAINTENANCE Fi nal Result [facility] EXTERNAL NON-INTERFACED REF LAB [address] [place] [address] from Last 3 Months or Most Recently Relevant to Health Maintenance Insurance [employer] MEDICARE Advance Directives Documents on File Type Date Recorded Patient Vehicle Safety Inspector Expl anation Living Will 05/21/2020 9:37 AM Durable Power of Child Custody Evaluator 05/21/2020 9:27 AM Durable Power of Child Custody Evaluator 05/16/2020 6:05 AM Living Will 05/16/2020 6:04 AM Healthcare Agents on File Name Relationship Healthcare Agent Relationshi p Communication David Burns Spouse Health Care Agent Samantha Inman Daughter [facility] re Agent Care Teams Lining Finisher Relationship Specialty Start Date End Date Marien Glass MD [address] [place] [id number] PCP - General 07/15/23
--- OUTSIDE RECORDS SUMMARY | 2025-02-03 09:36 | XMS_ITS | Encounter Summary ---
Author [id number] [address] [place] [address] Care Team Providers Care Rotary Cutter Feeder Name Role Phone Marine Glass MD Primary Care Provider [phone] Reason for Visit * Reason Comments Med Refill Encounter Details Date Type Department Care Team (Late st Contact Info) Description 01/31/2025 Refill [facility] [address] [place] [address] Jovita Hernandez, AGRICULTURAL EQUIPMENT SALESPERSON-IN HOME CAREGIVER [address] [place] [address] Med Refill Social History Tobacco Use Types [...] encounter Miscellaneous Notes * Telephone Encounter - Debbie Kerr RN - 01/31/2025 12:23 AM EDT OV 11/08/24 CMP 11/08/24 Mag 11/08/24 documented in this encounter Plan of Treatment Not on file documented as of this encounter Visit Diagnoses Not on filedocumented in this encounter Additional Health Concerns Assessment Noted Time PHQ-9 Depression Total Score: 0 04/24/20 20 10:41 AM EST documented as of this encounter Care Teams Rotary Cutter Feeder Relationship Specialty Start Date End Date Marine Glass MD [address] [place] [address] PCP - General 07/15/23 documented as of this encounter
--- OUTSIDE RECORDS SUMMARY | 2025-02-03 09:36 | XMS_ITS | Encounter Summary ---
Author Organization [facility] Address [id number] [address] [place] [address] Care Team Providers Care Auto Technician Name Role Phone Marine Glass MD Primary Care Provider [phone] Reason for Visit * Reason Onset Date Comments Med Refill 11/25/2022 Encounter Details Date Type Department Care Team (Late st Contact Info) Description 11/25/2022 Refill [facility] [address] [place] [phone] Miquel Fabian, PA-C [address] [place], [place] [id number] Med Refill Social History Tobacco Use Types [...] encounter Miscellaneous Notes * Telephone Encounter - Esteal Bueno RN - 11/25/2022 3:18 PM EDT Refill was addressed yesterday and sent to [facility]. Pt needs labs done for further refills. documented in this encounter Plan of Treatment Not on file documented as of this encounter Visit Diagnoses Not on filedocumented in this encounter Additional Health Concerns Assessment Noted Time PHQ-9 Depression Total Score: 0 04/24/20 20 10:41 AM EST documented as of this encounter Care Teams Auto Technician Relationship Specialty Start Date End Date Marine Glass MD [address] [place] [address] PCP - General 07/15/23 documented as of this encounter
--- OUTSIDE RECORDS SUMMARY | 2025-02-03 09:36 | XMS_ITS | Encounter Summary ---
Author Organization [facility] Address [address] [place] [address] Care Team Providers Care Windows Server Engineer Name Role Phone Marine Glass MD Primary Care Provider [phone] Encounter Details Date Type Department Care Team (Late st Contact Info) Description 10/13/2022 Orders Only [facility] [address] [place] [address] Fabi De Anda DDD (degenerative [...] disc documented in this encounter Care Teams Windows Server Engineer Relationship Specialty Start Date End Date Marine Glass MD PCP - General Family Medicine 09/26/22 documented as of this encounter
--- OUTSIDE RECORDS SUMMARY | 2025-02-03 09:36 | XMS_ITS | Encounter Summary ---
Author Organization [facility] Address [id number] [address] [place] [address] Care Team Providers Care Bus Driver School Name Role Phone Marine Glass MD Primary Care Provider [phone] Reason for Visit * Reason Onset Date Comments Med Refill 11/15/2024 Encounter Details Date Type Department Care Team (Late st Contact Info) Description 11/15/2024 Refill [facility] [address] [place] [phone] Vinicio Causey PA-C [address] [place] [address] Med Refill Social History Tobacco Use Types [...] encounter Visit Diagnoses Diagnosis Paroxysmal atrial fibrillation ([facility]-HCC) Atrial fibrillation documented in this encounter Additional Health Concerns Assessment Noted Time PHQ-9 Depression Total Score: 0 04/24/20 20 10:41 AM EST documented as of this encounter Care Teams Bus Driver School Relationship Specialty Start Date End Date Marine Glass MD [address] [place] [address] PCP - General 07/15/23 documented as of this encounter
--- OUTSIDE RECORDS SUMMARY | 2025-02-03 09:36 | XMS_ITS | Clinical Summary ---
Author Organization [facility] Address [address] [place] [address] Care Team Providers Care High School Auto Repair Teacher Name Role Phone Marine Glass MD Primary Care Provider [phone] Allergies Active Allergy Reactions Criticality Noted Date [...] Description 12/27/2024 10:00 AM EDT [facility] [address] [place] [address] Karen Espinal MD Seborrheic keratosis, inflamed (Primary Dx); Inflamed skin tag; Amna 12/27/2024 Bamboo flowsheet [facility] [address] [place] [address] Karen Espinal MD 12/27/2024 Travel from Last [...] Months Insurance [employer] MEDICARE ADVANTAGE Care Teams High School Auto Repair Teacher Relationship Specialty Start Date End Date Marine Glass MD PCP - General Family Medicine 09/26/22
--- OUTSIDE RECORDS SUMMARY | 2025-02-03 09:40 | XMS_ITS | CCD ---
Author Organization [facility] Care Team Providers Care Radiotelegraphist Name Role Phone PHYSICIAN, DEFAULT Unavailable Unavailable [...] PAY, DR MANN Consulting Unavailable PAY, DR AMNN Admitting Unavailable PAY, DR MANN Attending Unavailable LUANA VILLAFANA Consulting Unavailable JOAQUÍN ATKINS Consulting Unavailable Elliot Starks Unavailable Elliot Starks MD Primary Care Provider [phone] MD Elliot Starks Attending Provider [phone] Elliot Starks Admitting Unavailable Elliot Starks Attending Unavailable ELLIOT STARKS Primary Care Physician Elliot Starks MD Primary Care Provider Melchor Rivera Admitting Unavail able Melchor Rivera Attending Unavail able Elliot Starks Primary Care Unavailable Ricci Perez Consulting Unavailable Elliot Starks MD Primary Care Provider [phone] Elliot Starks MD Primary Care Provider [phone] Elliot Starks MD Primary Care Provider [phone] Alfreda Miller Attending Unavailable Maria E Osman [...] Unavailable BROCWELL, DIVINE M Referring Unavailable STARKS, ELLITO Primary Care Unavailable AMAIR, PAULA Attending Unavailable AMARI, PAULA Referring Unavailable SELF, SELF Referring Unavailable AMAIR, PAULA Attending Unavailable STARKS, ELLIOT Primary Care Unavailable MIKO OHARA Attending Unavailable MAYDA, MIKO Referring Unavailable STARKS, ELLIOT Primary Care Unavailable SELF, SELF Referring Unavailable MAYDA, MIKO Attending Unavailable STARKS, ELLIOT Primary Care Unavailable BROCWELL, DIVINE M Referring Unavailable STARKS, ELLIOT Primary Care Unavailable BROCWELL, DIVINE M Attending Unavailable Elliot Starks MD Primary Care Provider [phone] Alfreda Miller Attending Unavailable Jean Pierre MARTE Admitting Unavailable Jean Pierre MARTE Attending Unavailable RADHA MART Attending Unavailable STARKS, ELLIOT E Referring Unavailable STARKS, ELLIOT E Primary Care Unavailable BIALECKI, DIVINE Referring Unavailable STARKS, ELLIOT E Primary Care Unavailable ROSANGELA MONTAGUE Referring Unavailable STARKS, ELLIOT E Primary Care Unavailable Elliot Starks MD Primary Care Provider Elliot Starks MD Attending Provider [phone] Agusto VILLEGAS, Andrzejrius Dietz Attending Unavailable Agusto VILLEGAS, Andrius Vaudrey Attending Unavailable Agusto VILLEGAS, Andrius Vytdannielle Attending Unavailable Agusto VILLEAGS, Andrius J Luis Attending Unavailable Elliot Starks MD Primary Care Provider RADHA ESPINAL Attending Unavailable Govind Snow DO Attending Provider Unavailable Ayanna Saini CMA Attending Provider Unavaila agnieszka STARKS, ELLIOT E Primary Care Unavailable GOVIND SNOW Attending Unavailable Maria E Osman Attending Unavailable Alfreda Miller Referring Unavailable Alfreda Miller Admitting Unavailable Alfreda Miller Attending Unavailable Alfreda Miller Referring Unavailable Maria E Osman Attending Unavailable Maria E Osman Admitting Unavailable Maria E Osman Attending Unavailable Maria E Osman Attending Unavailable Allergies Allergy Classification Reported Allergen(s) Allergy Type Date of Onset Reaction(s) Facility (20 sources) Acetaminophen / HYDROcodone; Translations: [HYDROCODONE-ACET AMINOPHEN] Drug Allergy 03-19-20 17 Unknown, Itching, Nausea Only, Rash [facility] (20 sources) Baclofen; Translations: [baclofen] Drug Allergy 03-19-20 17 Unknown, Itching, Rash [facility] (20 sources) Codeine; Translations: [codeine] Drug Allergy 08-09-19 09 Unknown, Itching, Rash [facility] (20 sources) levoFLOXacin; Translations: [levofloxacin] Drug Allergy 03-19-20 17 Unknown, Itching, Nausea Only, Rash [facility] (20 sources) Morphine; Translations: [morphine] Drug Allergy 08-09-19 09 [facility] (17 sources) oxyCODONE; Translations: [OXYCODONE] Drug Allergy 12-03-19 16 [facility] (13 sources) Penicillins; Translations: [PENICILLINS] Drug Allergy 12-03-19 16 Hives, Rash [facility] (1 source) Baclofen Drug Allergy [facility] (1 source) Codeine Drug Allergy [facility] (17 sources) levoFLOXacin; Translations: [Levaquin] Drug Allergy Unknown [facility] (1 source) Morphine Drug Allergy 05-04-18 94 [facility] (1 source) oxyCODONE Drug Allergy 05-04-19 05 [facility] (1 source) Penicillins Drug allergy (disorder) 05-04-18 93 [facility] (6 sources) traMADol; Translations: [Ultram] Drug Allergy [facility] (11 sources) Codeine Drug Allergy Unknown [facility] Other (20 sources) Penicillin; Translations: [penicillin] Drug Allergy Unknown [facility] (20 sources) traMADol; Translations: [tramadol] Drug Allergy 07-13-19 20 Itching, Rash [facility] (20 sources) zolpidem; Translations: [zolpidem] Drug Allergy 07-04-19 23 Unknown, Hives [facility] (11 sources) Penicillins Drug Allergy 12-03-19 16 Hives, Rash [facility] (1 source) Non-steroidal anti-inflammatory agent Drug allergy 02-02-20 13 Unknown [facility] Other (20 sources) sulfADIAZINE; Translations: [SULFADIAZINE] Drug Allergy 07-04-19 23 Comment:Sulfa [facility] (1 source) Ultram *ANALGESICS - OPIOID* Propensity to adverse reactions Unknown [facility] Other (1 source) Vioxx *ANALGESICS - ANTI-INFLAMMATORY * Propensity to adverse reactions Unknown [facility] Other (1 source) Penicillin G Benzathine & Proc Drug allergy Unknown [facility] Other (1 source) Morphine Sulfate (Concentrate) *ANALGESICS - OPIOI Propensity to adverse reactions Unknown [facility] Other (1 source) Allergies Reconciled Propensity to adverse reactions Unknown [facility] Other (1 source) patient allergy list reviewed by nurse or physicia Propensity to adverse reactions 02-02-20 Comment:Done [facility] Other (1 source) Vicodin *ANALGESICS - OPIOID* Propensity to adverse reactions Unknown [facility] Other (7 sources) calcitonin Drug allergy 10-28-19 24 Unknown, [facility] (15 sources) Penicillins Propensity to adverse reactions to drug 09-13-19 23 Unknown [facility] (1 source) Acetaminophen / HYDROcodone; Translations: [Vicodin] Drug Allergy [facility] (1 source) Adhesive Tape; Translations: [Tape] Propensity to adverse reactions (disorder) [facility] (10 sources) Latex Propensity to adverse reactions to drug 06-19-[address] [facility] (10 sources) *Adhesive Tape Propensity to adverse reactions 07-04-[address] [facility] (8 sources) Cephalexin Drug Allergy 07-09-19 24 Nausea Only, Dry Mouth, Flushing [facility] (6 sources) Acetaminophen Drug Allergy 10-28-19 24 [facility] (6 sources) HYDROcodone Drug Allergy 10-28-19 24 [facility] (6 sources) Penicillin G Benzathine Allergy to substance 10-28-19 24 [facility] (20 sources) rofecoxib; Translations: [ROFECOXIB] Drug Allergy 07-04-19 [facility] (19 sources) Adhesive agent; Translations: [ADHESIVE] Propensity to adverse reactions to drug 07-04-19 [facility] (20 sources) penicillin G benzathine / penicillin G procaine; Translations: [PENICILLIN G BENZATHIN,PROCAIN ] Drug Allergy 07-04-19 [facility] (4 sources) Morphine; Translations: [Morphine Sulfate] Drug Allergy [facility] (4 sources) zolpidem; Translations: [Ambien] Drug Allergy [facility] (10 sources) Penicillins Propensity to adverse reactions to drug 12-03-19 16 Rash, [facility] (3 sources) Baclofen Drug Allergy 09-13-19 23 Rash [facility] (4 sources) Adhesive agent Propensity to adverse reactions to drug 07-04-19 [facility] Medications Current Medications Medication Drug Class(es) [...] 30, 2024 11:34am Start: 08-31-2017 End: 11-16-2024 Eliquis 5 mg oral tablet Ref ills(s) 0 Start Date: 02/11/23 Status: Ordered Repeat number: 1 take 2 tablets by [facility] every twelve hours apixaban 2.5 MG tablet Take 2 tablets by mouth every 12 hours. Active apixaban 2.5 MG tablet Take by mouth every 12 hours. 0 Active Comment on above: Take 5 mg by mouth t wice daily. ascorbic acid 226 mg / beta carotene [id number] unt / cuprous oxide 0.8 mg / dl-alpha tocopheryl acetate 200 unt / zinc oxide 34.8 mg oral capsule (17 sources) Vitamin C Start: 10-28-2023 take 1 capsule by mouth in the morning vitamins A,C,J-wmfy-gstaef (ICAPS AREDS) 4,296 mcg-226 mg-90 mg capsule Take 1 capsule by mouth in the morning and 1 capsule before bedtime. 10/28/2023 Active Start: 10-28-2023 take 1 capsule by mo [facility] twice daily Vitamins A,C,W-Tvdy-Ewhvbp (Preservision Areds) 4,296 mcg-226 mg-90 mg capsule Active 1 CAP PO Twice daily October 28, 2023 12:00am Complies with drug therapy atenolol 50 mg oral tablet (20 sources) beta-Adrenergic Philip Start: 2023 End: 2023 take 75 mg by mouth once daily 75 mg, Oral, DAILY, First dose on Thu07/08/23 at 0900, Until Discontinued Start: 06-24-2023 End: 12-27-2024 atenolol 50 mg Tab 50 mg = 1 tab(s), Refills(s) 0 Start Date: 06/22/24 Status: Ordered Repeat number: 1 Start: 09-10-2022 End: 07-06-2024 take 1.5 tablets [...] 08/31/2017 Active take 1 tablet by mirza once daily Atenolol 25 MG tablet Take [...] 07/07/2023 Active estradiol 0.1 mg/ml vaginal cream (11 sources) Estrogen Start: 01-25-2025 Estrace 0.1 mg /g Cream See Instructions, 42.5 gm, Refill(s) 2, Apply pea sized amount to urethra/vagina 3x a week for 1 month, then 2x a week afterwards, [id number], 165, cm, 01/25/25 8:16:00 EDT, Height/Length Dosing, 81.4, kg, 10/26/24 8:10:00 EDT, Weight Dosing Start Date: 01/25/25 Status: Ordered Quantity: 42.5 Unit: g Repeat number: 3 Indications: Urinary tract infection, site not specified; Postmenopausal atrophic vaginitis; Start: 09-19-2024 Estrace 0.1 mg /g Cream See Instructions, 42.5 gm, Refill(s) 2, Apply pea sized amount to urethra/vagina 3x a week for 1 month, then 2x a week afterwards, [id number], 165, cm, 06/22/24 13:05:00 EST, Height/Length [...] x 1 month, then 2x/week for maintainence, [facility] #[id number], 165, cm, 02/11/23 10:41:00 EDT, Height/Length Dosing, 77.5, kg, 02/11/23 10:41:00 EDT, Weight Dosing 02/11/2023 Active Start: 02-11-2023 Estrace 0.1 mg /g Cream See Instructions, 42.5 gm, Refill(s) 3, apply pea size amount to urethra/inner vagina 3x/week x 1 month, then 2x/week for maintainence, [facility][id number], 165, cm, 02/11/23 10:41:00 EDT, Height/Length Dosing, 77.5, kg, 02/11/23 10:41:00 EDT, Weight Dosing Start Date: 02/11/23 Status: Ordered flecainide acetate 50 mg oral tablet (20 sources) Antiarrhythmic Start: 07-15-2023 End: 01-17-2025 flecainide 50 mg Tab 50 mg = [...] number: 1 take 1 tablet by mirza once daily [...] Daily, # 30 tab(s), Refills(s) 11, Pharmacy: [facility] #[id number], 165, cm, 02/11/23 10:41:00 EDT, [...] needed for pain. Active Neuveria Vitamin OTC (6 sources) Start: 06-22-2024 Neuveria Vitam in OTC Neuveria Vitamin OTC Start Date: 06/22/24 Status: Ordered Repeat number: 1 Start: 06-22-2024 Neuveria Vitam in OTC Neuveria Vitamin OTC Start Date: 06/22/24 Status: Ordered nitrofurantoin, macrocrystals 25 mg / nitrofurantoin, monohydrate 75 mg oral capsule (5 sources) Nitrofuran Antibacterial Start: 01-25-2025 End: 02-01-2025 take 1 capsule by mouth twice daily Macrobid 100 mg Cap 100 mg = 1 cap(s), Oral, BID, X 7 day(s), # 14 cap(s), Refills(s) 0, Pharmacy: [facility] #[id number], 165, cm, 01/25/25 8:16:00 EDT, Height/Length Dosing, 81.4, kg, 10/26/24 8:10:00 EDT, Weight Dosing Start Date: 01/25/25 Stop Date: 02/01/25 Status: Ordered Quantity: 14.0 Unit: cap(s) Repeat number: 1 Indications: Urinary tract infection, site not specified; Start: 06-23-2022 take 1 capsule by mo uth every twelve hours Nitrofurantoin Monohyd Macro 100 MG 1 capsule with food Orally every 12 hrs for 7 days Jun, Active NON FORMULARY (20 sources) NON FORMULARY Me d Name:Neuveria vitamin 1 qd Active NON FORMULARY Me d Name:Neuveria vitamin 1 qd 0 Active NON-FORMULARY (8 sources) NON-FORMULARY Me d Name:Neuveria vitamin 1 qd Active omeprazole 40 mg delayed release oral capsule (20 sources) Proton Pump Inhibitor Start: 04-30-2024 End: 12-19-2024 omeprazole 40 mg Cap-DR 40 mg = [...] drug therapy Start: 06-22-2024 Potassium Chlo ride (Nzo-Kxyc-Cit 10) 10 mEq oral tablet, extended release 10 mEq = 1 tab(s), Refills(s) 0 Start Date: 06/22/24 Status: Ordered Repeat number: 1 Start: 06-22-2024 Potassium Chlo ride (Mkq-Kyur-Dtc 10) 10 mEq oral tablet, extended release [...] 29, 2024 12:00am Complies with drug therapy traZODone hydrochloride 50 mg oral tablet (16 sources) Serotonin Reuptake Inhibitor Start: 05-09-2024 End: 11-15-2024 traZODONE 50 mg Tab 50 mg = 1 tab(s), Refills(s) 0 Start Date: 06/22/24 Status: Ordered Repeat number: 1 triamcinolone acetonide 1 mg/ml topical cream (2 [...] 2023 2:33pm Trospium Chlorid e Active Vitamins A,C,E-Vlbr-Qzvrig (Preservision Areds) 4,296 mcg-226 mg-90 mg capsule (4 sources) Start: 10-28-2023 take 1 capsule by mouth twice daily Vitamins A,C,Y-Xusb-Dhbekf (Preservision Areds) 4,296 mcg-226 mg-90 mg capsule Active 1 CAP PO Twice daily October 27, 2023 11:00pm Start: 10-28-2023 take 1 capsule by mo ut twice daily Vitamins A,C,F-Escs-Hlsprs (Preservision Areds) 4,296 mcg-226 mg-90 mg capsule [...] Start: 07-07-2023 take 2 tablets by mo [facility] every four hours as needed Acetaminophen [...] Until Discontinued, Post-op/Post-Proc cycloSPORINE Opth 0.05% Emul (6 sources) Start: 06-22-2024 cycloSPORINE Opth 0.05% Emul [...] Post-op/Post-Proc docusate sodium 50 mg / sennosides, jail 8.6 mg oral tablet (1 source) Start: [...] to other specified organisms Episodic Allergic reactions (8 sources) Eczema 10-05-2023 Episodic Anal and rectal conditions (8 sources) Disorder of rectum 02-05-2023 Episodic Anxiety disorders (5 sources) Acute stress disorder; Translations: [Acute stress reaction] 02-08-2024 Chronic Calculus of urinary tract (4 sources) History of calculus of kidney; Translations: [...] 04-29-2022 Chronic Genitourinary symptoms and ill-defined conditions (14 sources) Mixed incontinence; Translations: [Incontinence] Onset: 02-11-2023 [...] Translations: [Fatigue] Onset: 06-11-2022 Episodic Menopausal disorders (2 sources) Atrophic vaginitis; Translations: [Postmenopausal atrophic vaginitis] Onset: 09-19-2024 Chronic Osteoarthritis (15 sources) Unspecified osteoarthritis, unspecified site; Translations: [Localized, primary osteoarthritis of the pelvic region and thigh] Onset: 06-11-2022 05-06-2023 Chronic Other aftercare (1 source) Other penitentiary (current) drug therapy; Translations: [[facility] CURRENT DRUG THERAPY] Onset: 06-11-2022 Episodic Other aftercare (4 sources) Long-term current use of anticoagulant; Translations: [jail (current) use of anticoagulants] Onset: 02-11-2023 Episodic [...] of mental health and substance abuse codes (13 sources) Personal history of nicotine dependence; Translations: [...] W/AND (SUSP) EXPOS COVID-19] Onset: 06-11-2022 Unclassified (8 sources) Drug therapy finding 02-11-2023 Urinary tract [...] Coronary arteriosclerosis; 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] Onset: 07-29-2021 Resolved: 08-16-2021 06-02-2023 Chronic Gastroduodenal ulcer (except hemorrhage) (2 sources) Personal history of peptic ulcer disease; Translations: [Acute gastric ulcer without hemorrhage, without perforation AND without obstruction] Onset: 05-11-2017 Episodic Mood disorders (20 sources) Mood disorders Onset: 04-24-2020 04-24-2020 Other [...] Reference Range Facility Ambulatory Visit Summaryon 0 01-25-2025 Ambulatory Visit Summary Ambulatory Visit Summary BETTIE [...] 40 mg Jamie-) potassium chloride (Potassium Chloride (Hyx-Huph-Wrn 10) 10 mEq oral tablet, extended release) [...] E Osman PA-C Where: [facility] [address] [address]- Medications What How Much When Why Instructions [...] 1 Capsules Unchanged potassium chloride (Potassium Chloride (Hys-Xdso-Zym 10) 10 mEq oral tablet, extended release) [...] signed up for this yet, please contact [employer] at [phone] to get signed up today. Language Information Language assistance services are available as needed. [facility] Urology Office/Clinic Noteon 01-25-2025 Urology Office/Clinic Note Urology Office/Clinic Note Chief [...] Urnls Dip Stick Auto w/o Microscopy POC [id number] 2. Frequent UTI, (N39.0: Urinary tract infection, [...] 1 month, then 2x a week afterwards, [facility][id number], 165, cm, 06/22/24 13:05:00 EST, Height/Length Dosing, 80.7, kg, 06/22/24 13:05:00 EST, Weight Dosing estradiol topical, See Instructions, 42.5 gm, Refill(s) 2, Apply pea sized amount to urethra/vagina 3x a week for 1 month, then 2x a week afterwards, [facility] #[id number], 165, cm, 01/25/25 8:16:00 EDT, Height/Length Dosing, 81.4, kg, 10/26/24 8:10:00 EDT, Weight Dosing nitrofurantoin, 100 mg = 1 cap(s), Oral, BID, X 7 day(s), # 14 cap(s), Refills(s) 0, Pharmacy: [facility] #[id number], 165, cm, 01/25/25 8:16:00 EDT, Height/Length Dosing, 81.4, kg, 10/26/24 8:10:00 EDT, Weight Dosing Urine Culture Urnls Dip Stick Auto w/o Microscopy POC [id number] 3. History of kidney stones (Z87.442: Personal history of urinary calculi) (more content not included)... Normal [facility] Comment on above: Result Comment: Elec tronically Signed By: Jacqui MOTT, Maria E\.br\Date and Time Signed: 01/25/25 11:51 EDT No Panel Informationon 12-27 [facility] Bacteria [...] , Intermediate >32 , Resistant >64 Abnormal [facility] Comment on above: Performed By: #### 2 4356-8 #### [facility] CLIA [id number] [facility] [place], [place] [id number] [place] [address] #### [phone] #### [facility] CLIA [id number] [address] [place] [address] ED NOTEon 12-19-2024 ED NOTE HNO ID: [id number] Author: ADAM PORTILLO RN Service: ? Author Type: Registered Nurse Type: ED Notes Filed: 12/19/2024 01:18 Note Text: Patient discharged per MD orders. Discharge instructions reviewed. Pt encouraged to return to ED if worsening signs or symptoms occur. Prescriptions called into pharmacy of choice. Follow up care discussed. Pt left ED in stable condition. Normal [facility] HIGH SENSITIVITY TROPONIN T (THIRD) 3 HRS AFTER INITIALon 12-19-2024 Troponin T.cardiac High sensitivity method [Mass/Vol] 13 ng/L High <12 [facility] Comment on above: Order Comment: Speci men Type: BLOOD SPECIMENOrdering Facility: [facility] Address: [address] [place] [address] Performed By: #### 2 4356-8 #### [facility] CLIA [id number] [facility] [place], [place] [id number] [place] [address] #### [phone] #### [facility] CLIA [id number] [address] [place] [address] Laboratory - Chemistry and C hemistry - challengeOrdered By: Govind Snow on 12-19-2024 Bilirubin Ql (U) Negative Negative [facility] Glucose (U) [Mass/Vol] Negative Trace , Negative [facility] Ketones Ql (U) Negative Negative, Trace [facility] pH (U) 6.0 [pH] 5.0-8.0 [facility] Specific gravity (U) [Rel density] 1.028 1.005-1.030 [facility] Laboratory - Specimen inform ationOrdered By: Govind Snow on 12-19-2024 Appearance (U) Turbid Abnormal Clear [facility] Color (U) Light Yellow yellow [facility] - UrinalysisOrder ed By: Govind Snow on 12-19-2024 Hyaline casts LM Ql (Urine sed) 1-3 /LPF Abnormal 0 /LPF [facility] Leukocyte esterase Test strip Ql (U) 500 Felipe/uL Abnormal Negative, 25 Felipe/uL [facility] Nitrite Ql (U) 2+ Abnormal Negative [facility] Protein Ql (U) Negative Trace, Negative [facility] No Panel InformationOrdered By: Govind Snow on 12-19-2024 Troponin T Hi Sens Cardiac Interven 13 ng/L High <12 [facility] Urine Bacteria Rare [HPF] Abnormal None Seen [facility] Urine Occult Blood Trace Negative, Trace [facility] Urine RBC 6-10 /HPF Abnormal 0-3 /HPF [facility] Urine Squamous Epithelial Cells Few [HPF] [facility] Urine Urobilinogen Normal Normal [facility] Urine WBC >25 /HPF Abnormal 0-5 /HPF [facility] Urinalysis complete panel (U )on 12-19-2024 Bacteria LM.HPF (Urine sed) [#/Area] Rare Abnormal None Seen [facility] Comment on above: Order Comment: Speci men Type: URINE SPECIMEN Ordering Facility: [facility] Address: [address] [place] [address] Performed By: #### 2 4356-8 #### [facility] CLIA [id number] [address] [place] [address] [place] #### [phone] #### [facility] CLIA [id number] [address] [place] [address] [place] Bilirubin Ql (U) Negative Normal Negative [facility] Comment on above: Order Comment: Speci men Type: URINE SPECIMEN Ordering Facility: [facility] Address: [address] [place] [address] Performed By: #### 2 4356-8 #### [facility] CLIA [id number] [address] [place] [address] [place] #### [phone] #### [facility] CLIA [id number] [address] [place] [address] [place] Clarity (Unsp spec) Turbid Abnormal Clear [facility] Comment on above: Order Comment: Speci men Type: URINE SPECIMEN Ordering Facility: [facility] Address: [address] [place] [address] Performed By: #### 2 4356-8 #### [facility] CLIA [id number] [address] [place] [address] [place] #### [phone] #### [facility] CLIA [id number] [address] [place] [address] [place] Color (U) Light Yellow Normal yellow [facility] Comment on above: Order Comment: Speci men Type: URINE SPECIMEN Ordering Facility: [facility] Address: [address] [place] [address] Performed By: #### 2 4356-8 #### [facility] [place] [id number] [address] [place] [address] [place] #### [phone] #### [facility] CLIA [id number] [address] [place] [address] [place] Epithelial cells LM.HPF (Urine sed) [#/Area] Few Normal [facility] Comment on above: Order Comment: Speci men Type: URINE SPECIMEN Ordering Facility: [facility] Address: [address] [place] [address] Performed By: #### 2 4356-8 #### [facility] CLIA [id number] [address] [place] [address] [place] #### [phone] #### [facility] CLIA [id number] [address] [place] [address] [place] Glucose Test strip (U) [Mass/Vol] Negative Normal Trace, Negative [facility] Comment on above: Order Comment: Speci men Type: URINE SPECIMEN Ordering Facility: [facility] Address: [address] [place] [address] Performed By: #### 2 4356-8 #### [facility] CLIA [id number] [address] [place] [address] [place] #### [phone] #### [facility] [facility] CLIA [id number] [address] [place] [place] [address] [place] Hemoglobin Ql (U) Trace Normal Negative, Trace [facility] Comment on above: Order Comment: Speci men Type: URINE SPECIMEN Ordering Facility: [facility] Address: [address] [place] [address] Performed By: #### 2 4356-8 #### [facility] CLIA [id number] [address] [place] [address] [place] #### 630-4 #### [facility] CLIA [id number] [address] [place] [address] [place] Hyaline casts (Urine sed) [#/Area] 1-3 /LPF Abnormal 0 /LPF [facility] Comment on above: Order Comment: Speci men Type: URINE SPECIMEN Ordering Facility: [facility] Address: [address] [place] [address] Performed By: #### 2 4356-8 #### [facility] [place] [id number] [address] [place] [address] [place] #### 630-4 #### [facility] CLIA [id number] [address] [place] [address] [place] Ketones Ql (U) Negative Normal Negative, Trace [facility] Comment on above: Order Comment: Speci men Type: URINE SPECIMEN Ordering Facility: [facility] Address: [address] [place] [address] Performed By: #### 2 4356-8 #### [facility] CLIA [id number] [address] [place] [address] [place] #### 630-4 #### [facility] CLIA [id number] [address] [place] [address] [place] Leukocyte esterase Test strip Ql (U) 500 Felipe/uL Abnormal Negative, 25 Felipe/uL [facility] Comment on above: Order Comment: Speci men Type: URINE SPECIMEN Ordering Facility: [facility] Address: [address] [place] [address] Performed By: #### 2 4356-8 #### [facility] CLIA [id number] [address] [place] [address] [place] #### 630-4 #### [facility] CLIA [id number] [address] [place] [address] [place] Nitrite Ql (U) 2+ Abnormal Negative [facility] Comment on above: Order Comment: Speci men Type: URINE SPECIMEN Ordering Facility: [facility] Address: [address] [place] [address] Performed By: #### 2 4356-8 #### [facility] [place] [id number] [address] [place] [address] [place] #### 630-4 #### [facility] CLIA [id number] [address] [place] [address] [place] pH (U) 6.0 [pH] Normal 5.0-8.0 [facility] Comment on above: Order Comment: Speci men Type: URINE SPECIMEN Ordering Facility: [facility] Address: [address] [place] [address] Performed By: #### 2 4356-8 #### [facility] CLIA [id number] [address] [place] [address] [place] #### 630-4 #### [facility] CLIA [id number] [address] [place] [address] [place] Protein (U) [Mass/Vol] Negative Normal Trace , Negative [facility] Comment on above: Order Comment: Speci men Type: URINE SPECIMEN Ordering Facility: [facility] Address: [address] [place] [address] Performed By: #### 2 4356-8 #### [facility] CLIA [id number] [address] [place] [address] [place] #### 630-4 #### [facility] CLIA [id number] [address] [place] [address] [place] RBC LM.HPF (Urine sed) [#/Area] 6-10 /HPF Abnormal 0-3 /HPF [facility] Comment on above: Order Comment: Speci men Type: URINE SPECIMEN Ordering Facility: [facility] Address: [address] [place] [address] Performed By: #### 2 4356-8 #### [facility] IA [id number] [address] [place] [address] [place] #### 630-4 #### [facility] CLIA [id number] [address] [place] [address] [place] Specific gravity (U) [Rel density] 1.028 Normal 1.005-1.030 [facility] Comment on above: Order Comment: Speci men Type: URINE SPECIMEN Ordering Facility: [facility] Address: [address] [place] [address] Performed By: #### 2 4356-8 #### [facility] [place] [id number] [address] [place] [address] [place] #### 630-4 #### [facility] CLIA [id number] [address] [place] [address] [place] Urobilinogen Ql (U) Normal Normal Normal [facility] Comment on above: Order Comment: Speci men Type: URINE SPECIMEN Ordering Facility: [facility] Address: [address] [place] [address] Performed By: #### 2 4356-8 #### [facility] CLIA [id number] [address] [place] [address] [place] #### 630-4 #### [facility] CLIA [id number] [address] [place] [id number] [place] WBC LM.HPF (Urine sed) [#/Area] /[HPF] Abnormal 0-5 /HPF [facility] Comment on above: Order Comment: Speci men Type: URINE SPECIMEN Ordering Facility: [facility] Address: [address] [place] [address] Performed By: #### 2 4356-8 #### [facility] CLIA [id number] [address] [facility] 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: No RADIOLOGY DEPARTMENT: CT; Exam(s) Completed: Brain and PE Study PERIPHERAL IV DATA: Inpatient: see LDA documentation SIGNED BY: Cherrie Martin December 18, 2024 9:44 PM Normal [facility] Basophils Auto (Bld) [#/Vol] Ordered By: Govind Snow on 12-18-2024 Basophils (Bld) [#/Vol] 0.09 10*3/uL <0.11 [facility] Basophils/100 WBC Auto (Bld) Ordered By: Govind Snow on 12-18-2024 Basophils/100 WBC (Bld) 1.2 % F [facility] Blood manual differential co mment interpretation narrativeOrdered By: Govind Snow on 12-18-2024 Manual differential comment Murtaza (Bld) [Interp] Auto [facility] CBC W Auto Differential pane l (Bld)on 12-18-2024 Basophils (Bld) [#/Vol] 0.09 10*3/uL Normal <0.11 [facility] Comment on above: Order Comment: Speci men Type: BLOOD SPECIMEN Ordering Facility: [facility] Address: [address] [place] [address] Performed By: #### 5 7021-8 #### [facility] CLIA [id number] [address] [place] [address] [place] Basophils/100 WBC (Bld) 1.2 % Normal [facility] Comment on above: Order Comment: Speci men Type: BLOOD SPECIMEN Ordering Facility: [facility] Address: [address] [place] [address] Performed By: #### 5 7021-8 #### [facility] CLIA [id number] [address] [place] [address] [place] Differential cell count method Nom (Bld) Auto Normal [facility] Comment on above: Order Comment: Speci men Type: BLOOD SPECIMEN Ordering Facility: [facility] Address: [address] [place] [address] Performed By: #### 5 7021-8 #### [facility] CLIA [id number] [address] [place] [address] [place] Eosinophils (Bld) [#/Vol] 0.34 10*3/uL Normal <0.46 [facility] Comment on above: Order Comment: Speci men Type: BLOOD SPECIMEN Ordering Facility: [facility] Address: [address] [place] [address] Performed By: #### 5 7021-8 #### [facility] CLIA [id number] [address] [place] [address] [place] Eosinophils/100 WBC (Bld) 4.6 % Normal [facility] Comment on above: Order Comment: Speci men Type: BLOOD SPECIMEN Ordering Facility: [facility] Address: [address] [place] [address] Performed By: #### 5 7021-8 #### [facility] CLIA [id number] [address] [place] [address] [place] Erythrocyte distribution width (RBC) [Ratio] 11.9 % Normal 11.5-15.0 [facility] Comment on above: Order Comment: Speci men Type: BLOOD SPECIMEN Ordering Facility: [facility] Address: [address] [place] [address] Performed By: #### 5 7021-8 #### [facility] IA [id number] [address] [place] [address] [place] Hematocrit (Bld) [Volume fraction] 36.9 % Normal 36.0-46.0 [facility] Comment on above: Order Comment: Speci men Type: BLOOD SPECIMEN Ordering Facility: [facility] Address: [address] [place] [address] Performed By: #### 5 7021-8 #### [facility] IA [id number] [address] [place] [address] [place] Hemoglobin (Bld) [Mass/Vol] 12.3 g/dL Normal 11.5-15.5 [facility] Comment on above: Order Comment: Speci men Type: BLOOD SPECIMEN Ordering Facility: [facility] Address: [address] [place] [address] Performed By: #### 5 7021-8 #### [facility] IA [id number] [address] [place] [address] [place] Immature granulocytes (Bld) [#/Vol] 10*3/uL Normal <0.10 [facility] Comment on above: Order Comment: Speci men Type: BLOOD SPECIMEN Ordering Facility: [facility] Address: [address] [place] [address] Performed By: #### 5 7021-8 #### [facility] CLIA [id number] [address] [place] [address] [place] Immature granulocytes/100 WBC (Bld) 0.1 % Normal [facility] Comment on above: Order Comment: Speci men Type: BLOOD SPECIMEN Ordering Facility: [facility] Address: [address] [place] [address] Performed By: #### 5 7021-8 #### [facility] CLIA [id number] [address] [place] [address] [place] Lymphocytes (Bld) [#/Vol] 3.86 10*3/uL Normal 1.00-4.00 [facility] Comment on above: Order Comment: Speci men Type: BLOOD SPECIMEN Ordering Facility: [facility] Address: [address] [place] [address] Performed By: #### 5 7021-8 #### [facility] IA [id number] [address] [place] [address] [place] Lymphocytes/100 WBC (Bld) 51.7 % Normal [facility] Comment on above: Order Comment: Speci men Type: BLOOD SPECIMEN Ordering Facility: [facility] Address: [address] [place] [address] Performed By: #### 5 7021-8 #### [facility] IA [id number] [address] [place] [address] [place] MCH (RBC) [Entitic mass] 32.5 pg Normal 26.0-34.0 [facility] Comment on above: Order Comment: Speci men Type: BLOOD SPECIMEN Ordering Facility: [facility] Address: [address] [place] [address] Performed By: #### 5 7021-8 #### [facility] IA [id number] [address] [place] [id number] [place] MCHC (RBC) [Mass/Vol] 33.3 g/dL Normal 30.5-36.0 [facility] Comment on above: Order Comment: Speci men Type: BLOOD SPECIMEN Ordering Facility: [facility] Address: [address] [place] [address] Performed By: #### 5 7021-8 #### [facility] IA [id number] [address] [place] [address] [place] MCV (RBC) [Entitic vol] 97.4 fL Normal 80.0-100.0 [facility] Comment on above: Order Comment: Speci men Type: BLOOD SPECIMEN Ordering Facility: [facility] Address: [address] [place] [address] Performed By: #### 5 7021-8 #### [facility] IA [id number] [address] [place] [address] [place] Monocytes (Bld) [#/Vol] 0.70 10*3/uL Normal <0.87 [facility] Comment on above: Order Comment: Speci men Type: BLOOD SPECIMEN Ordering Facility: [facility] Address: [address] [place] [address] Performed By: #### 5 7021-8 #### [facility] IA [id number] [address] [place] [address] [place] Monocytes/100 WBC (Bld) 9.4 % Normal [facility] Comment on above: Order Comment: Speci men Type: BLOOD SPECIMEN Ordering Facility: [facility] Address: [address] [place] [address] Performed By: #### 5 7021-8 #### [facility] IA [id number] [address] [place] [address] [place] Neutrophils (Bld) [#/Vol] 2.47 10*3/uL Normal 1.45-7.50 [facility] Comment on above: Order Comment: Speci men Type: BLOOD SPECIMEN Ordering Facility: [facility] Address: [address] [place] [address] Performed By: #### 5 7021-8 #### [facility] IA [id number] [address] [place] [address] [place] Neutrophils/100 WBC (Bld) 33.0 % Normal [facility] Comment on above: Order Comment: Speci men Type: BLOOD SPECIMEN Ordering Facility: [facility] Address: [address] [place] [address] Performed By: #### 5 7021-8 #### [facility] IA [id number] [address] [place] [address] [place] Nucleated RBC (Bld) [#/Vol] 10*3/uL Normal <0.01 [facility] Comment on above: Order Comment: Speci men Type: BLOOD SPECIMEN Ordering Facility: [facility] Address: [address] [place] [address] Performed By: #### 5 7021-8 #### [facility] IA [id number] [address] [place] [address] [place] Nucleated RBC/100 WBC (Bld) [Ratio] 0.0 /100 WBC Normal [facility] Comment on above: Order Comment: Speci men Type: BLOOD SPECIMEN Ordering Facility: [facility] Address: [address] [place] [address] Performed By: #### 5 7021-8 #### [facility] IA [id number] [address] [place] [address] [place] Platelet mean volume (Bld) [Entitic vol] 8.7 fL Low 9.0-12.7 [facility] Comment on above: Order Comment: Speci men Type: BLOOD SPECIMEN Ordering Facility: [facility] Address: [address] [place] [address] Performed By: #### 5 7021-8 #### [facility] IA [id number] [address] [place] [address] [place] Platelets (Bld) [#/Vol] 209 10*3/uL Normal 150-400 [facility] Comment on above: Order Comment: Speci men Type: BLOOD SPECIMEN Ordering Facility: [facility] Address: [address] [place] [address] Performed By: #### 5 7021-8 #### [facility] CLIA [id number] [address] [place] [address] [place] RBC (Bld) [#/Vol] 3.79 10*6/uL Low 3.90-5.20 [facility] Comment on above: Order Comment: Speci men Type: BLOOD SPECIMEN Ordering Facility: [facility] Address: [address] [place], [place] [address] Performed By: #### 5 7021-8 #### [facility] CLIA [id number] [address] [place] [address] [place] WBC (Bld) [#/Vol] 7.47 10*3/uL Normal 3.70-11.00 [facility] Comment on above: Order Comment: Speci men Type: BLOOD SPECIMEN Ordering Facility: [facility] Address: [address] [place] [address] Performed By: #### 5 7021-8 #### [facility] CLIA [id number] [address] [place] [address] [place] CK SerPl-cCncon 12-18-2024 CK [Catalytic activity/Vol] 37 U/L Low 42-196 [facility] Comment on above: Order Comment: Speci men Type: BLOOD SPECIMEN Ordering Facility: [facility] Address: [address] [place] [address] Performed By: #### 2 157-6, 43257-3, 3040-3, 09932-4 #### [facility] CLIA [id number] [address] [place] [address] [place] CT BRAIN WO IVCONon 12-19-[address] BRAIN WO IVCON * * *Final Report* * * DATE OF EXAM: Dec 18 2024 10:24PM [facility] 0504 - CT BRAIN WO [...] Other: No depressed skull fracture is seen. Tariff Inspector (topogram) images: Degenerative spine changes noted. Non-diagnostic otherwise. IMPRESSION: Brain CT shows no evidence of an acute intracranial abnormality. Chronic intracranial changes and other details above. Food Packer: [email or web address] Transcribe Date/Time: Dec 18 2024 11:53P Dictated by : LOVE VALENCIA MD This examination was interpreted and the report reviewed and electronically signed by: LOVE VALENCIA MD on Dec 19 2024 12:12AM EST [id number] N Normal [facility] CTA CHEST (NON GATED) W IVCO N PEon 12-18-2024 CTA CHEST (NON GATED) W IVCON PE * * *Final Report* * * DATE OF EXAM: Dec 18 2024 10:27PM [facility] 0564 - CTA CHEST (NON [...] process. 3. Calcified granulomas and lymph nodes. Food Packer: [email or web address] Transcribe Date/Time: Dec 19 2024 12:32A Dictated by : JASON HINKLE MD This examination was interpreted and the report reviewed and electronically signed by: JASON HINKLE MD on Dec 19 2024 12:45AM EST [id number] N Normal [facility] metabolic 2000 panelon 12-18-2024 Albumin [Mass/Vol] 3.7 g/dL Low 3.9-4.9 [facility] Comment on above: Order Comment: Speci men Type: BLOOD SPECIMEN Ordering Facility: [facility] Address: [address] [place], [place] [address] Performed By: #### 2 157-6, 57542-0, 3040-3, 64851-2 #### [facility] CLIA [id number] [address] [place] [address] [place] ALP [Catalytic activity/Vol] 55 U/L Normal 34-123 [facility] Comment on above: Order Comment: Speci men Type: BLOOD SPECIMEN Ordering Facility: [facility] Address: [address] [place] [address] Performed By: #### 2 157-6, 75614-8, 3040-3, 75609-8 #### [facility] CLIA [id number] [address] [place] [address] [place] ALT [Catalytic activity/Vol] 9 U/L Normal 7-38 [facility] Comment on above: Order Comment: Speci men Type: BLOOD SPECIMEN Ordering Facility: [facility] Address: [address] [place] [address] Performed By: #### 2 157-6, 39816-4, 3040-3, 77745-7 #### [facility] CLIA [id number] [address] [place] [address] [place] Anion gap [Moles/Vol] 15 mmol/L Normal 8-15 [facility] Comment on above: Order Comment: Speci men Type: BLOOD SPECIMEN Ordering Facility: [facility] Address: [address] [place] [address] Performed By: #### 2 157-6, 17701-3, 3040-3, 14328-4 #### [facility] CLIA [id number] [address] [place] [address] [place] AST [Catalytic activity/Vol] 16 U/L Normal 13-35 [facility] Comment on above: Order Comment: Speci men Type: BLOOD SPECIMEN Ordering Facility: [facility] Address: [address] [place] [address] Performed By: #### 2 157-6, 65402-6, 3040-3, 34247-2 #### [facility] CLIA [id number] [address] [place] [address] [place] Bilirubin [Mass/Vol] 0.2 mg/dL Normal 0.2-1.3 [facility] Comment on above: Order Comment: Speci men Type: BLOOD SPECIMEN Ordering Facility: [facility] Address: [address] [place] [address] Performed By: #### 2 157-6, 36650-2, 3040-3, 49814-3 #### [facility] CLIA [id number] [address] [place] [address] [place] Calcium [Mass/Vol] 9.4 mg/dL Normal 8.5-10.2 [facility] Comment on above: Order Comment: Speci men Type: BLOOD SPECIMEN Ordering Facility: [facility] Address: [address] [place] [address] Performed By: #### 2 157-6, 50329-4, 3039-3, 67064-6 #### [facility] CLIA [id number] [address] [place] [address] [place] Chloride [Moles/Vol] 99 mmol/L Normal 98-107 [facility] Comment on above: Order Comment: Speci men Type: BLOOD SPECIMEN Ordering Facility: [facility] Address: [address] [place] [address] Performed By: #### 2 157-6, 00360-6, 3040-3, 56867-7 #### [facility] CLIA [id number] [address] [place] [address] [place] CO2 [Moles/Vol] 24 mmol/L Normal 22-30 [facility] Comment on above: Order Comment: Speci men Type: BLOOD SPECIMEN Ordering Facility: [facility] Address: [address] [place] [address] Performed By: #### 2 157-6, 57834-2, 3040-3, 68250-7 #### [facility] CLIA [id number] [address] [place] [address] [place] Creatinine [Mass/Vol] 1.24 mg/dL High 0.58-0.96 [facility] Comment on above: Order Comment: Skyler trammell Type: BLOOD SPECIMEN Ordering Facility: [facility] Address: [address] [place] [id number] Performed By: #### 2 157-6, 91302-5, 3040-3, 51675-8 #### [facility] CLIA [id number] [address] [place] [address] [place] eGFRcr SerPlBld CKD-EPI 2020 45 mL/min/1.73m??? Low >=60 [facility] Comment on above: Order Comment: Skyler trammell Type: BLOOD SPECIMEN Ordering Facility: [facility] Address: [address] [place] [address] Result Comment: Vicky mated Glomerular Filtration Rate [...] actual GFR. Performed By: #### 2 157-6, 34071-4, 3040-3, 40403-6 #### [facility] CLIA [id number] [address] [place] [address] [place] Glucose [Mass/Vol] 153 mg/dL High 74-99 [facility] Comment on above: Order Comment: Skyler trammell Type: BLOOD SPECIMEN Ordering Facility: [facility] Address: [address] [place] [address] Result Comment: The [place] [employer] (ADA) provides guidance for cutoff [...] Standards of Medical Care in Diabetes 2016, [place] [employer]. Diabetes Care. 2016.39(Suppl 1). Performed By: #### 2 157-6, 78899-1, 3040-3, 97711-5 #### [facility] CLIA [id number] [address] [place] [address] [place] Potassium [Moles/Vol] 3.1 mmol/L Low 3.7-5.1 [facility] Comment on above: Order Comment: Speci men Type: BLOOD SPECIMEN Ordering Facility: [facility] Address: [address] [place] [address] Performed By: #### 2 157-6, 31145-1, 0-3, 07315-5 #### [facility] CLIA [id number] [place] [address] [place] Protein [Mass/Vol] 6.4 g/dL Normal 6.3-8.0 [facility] Comment on above: Order Comment: Speci men Type: BLOOD SPECIMEN Ordering Facility: [facility] Address: [address] [place] [id number] Performed By: #### 2 157-6, 27837-6, 3039-3, 40166-2 #### [facility] CLIA [id number] [address] [place] [address] [place] Sodium [Moles/Vol] 138 mmol/L Normal 136-144 [facility] Comment on above: Order Comment: Speci men Type: BLOOD SPECIMEN Ordering Facility: [facility] Address: [address] [place] [address] Performed By: #### 2 157-6, 83753-2, 3039-3, 97391-5 #### [facility] CLIA [id number] [address] [place] [address] [place] Urea nitrogen [Mass/Vol] 22 mg/dL High 7-21 [facility] Comment on above: Order Comment: Speci men Type: BLOOD SPECIMEN Ordering Facility: [facility] Address: [address] [place] [address] Performed By: #### 2 157-6, 12305-5, 3040-3, 56194-9 #### [facility] CLIA [id number] [address] [facility] [place] [address] [facility] ED NOTEon 12-18-2024 ED NOTE HNO ID: [id number] Author: ISHMAEL GARCIA RN Service: ? Author Type: Registered Nurse Type: ED Notes Filed: 12/18/2024 20:17 Note Text: Bed: ED-12 Expected date: Expected time: Means of arrival: Comments: Normal [facility] ED PROV NOTEon 12-18-2024 ED PROV NOTE HNO ID: [id number] Author: GOVIND SNOW DO Service: ? Author [...] will go home and pursue outpatient follow-up Counse (more content not included)... Normal [facility] EKGon 12-18-2024 Electrocardiogram Ventricular Rate : 5 3 BPM Atrial Rate : 53 BPM P-R Interval : 255 ms QRS Duration : 125 ms Q-T Interval : 458 ms QTC Calculation(Bazett) : 430 ms Calculated P Hawkins : 231 degrees Calculated R Hawkins : -23 degrees Calculated T Hawkins : 117 degrees Sinus or ectopic atrial rhythm Prolonged IN intervalAbnormal ECG Confirmed by GOVIND SNOW DO ([id number]) on 12/19/2024 1:04:30 AM NAME : BETTIE BURNS PID : [id number] : 1945 Gender : Female Race : ORD : Procedure Date : Dec 18 2024 20:27:32 Edit Date : Dec 19 2024 01:04:35 Diagnosis: Sinus or ectopic atrial rhythm Prolonged IN intervalAbnormal ECG Confirmed by GOVIND SNOW DO ([id number]) on 12/19/2024 1:04:30 AM Test Reason : Location : 302 : ED AVED-12 Overread By : GOVIND SNOW DO Edited By : GOVIND SNOW DO Referred By : , Acquired by : , Normal [facility] Eosinophils/100 WBC Auto (Bl d)Ordered By: Govind Snow on 12-18-2024 Eosinophils/100 WBC (Bld) 4.6 % [facility] Erythrocyte distribution wid th Auto (RBC) [Ratio]Ordered By: Govind Snow on 12-18-2024 Erythrocyte distribution width (RBC) [Ratio] 11.9 % 11.5-15.0 [facility] Ethanol SerPl-mCncon 025 Ethanol [Mass/Vol] 105 mg/dL High <11 [facility] Comment on above: Order Comment: Skyler trammell Type: BLOOD SPECIMEN Ordering Facility: [facility] Address: [address] [place] [address] Result Comment: Valu es > 80 mg/dL may indicate intoxication Performed By: #### 5 643-2 #### [facility] CLIA [id number] [address] [place] [address] [place] Glomerular filtration rate [ Volume Rate/Area] in Serum, Plasma or Blood by CreatinineOrdered By: Govind Snow on 12-18-2024 Glomerular filtration rate [Volume Rate/Area] in Serum, Plasma or Blood by Creatinine 45 mL/min/1.73m??? Low >=60 [facility] Comment on above: Estimated Glomerular Filtration [...] sensitivity method [Mass/Vol] 14 ng/L High <12 [facility] Comment on above: Order Comment: Skyler trammell Type: BLOOD SPECIMEN Ordering Facility: [facility] Address: [address] [place] [address] Performed By: #### L [id number] #### [facility] CLIA [id number] [address] [place] [address] [place] HIGH SENSITIVITY TROPONIN T (SECOND)on 12-18-2024 Troponin T.cardiac High sensitivity method [Mass/Vol] 12 ng/L High <12 [facility] Comment on above: Order Comment: Skyler trammell Type: URINE SPECIMEN Ordering Facility: [facility] Address: [address] [place], [place] [address] Performed By: #### 2 4356-8 #### [facility] CLIA [id number] [facility] [place] [address] [place] #### 630-4 #### [facility] CLIA [id number] [address] [place] Hematocrit Auto (Bld) [Volum e fraction]Ordered By: Govind Snow on 12-18-2024 Hematocrit (Bld) [Volume fraction] 36.9 % 36.0-46.0 [facility] Hemoglobin [Mass/volume] in BloodOrdered By: Govind Snow on 12-18-2024 Hemoglobin (Bld) [Mass/Vol] 12.3 g/dL 11.5-15.5 [facility] INR in Platelet poor plasma by Coagulation assayOrdered By: Govind Snow on 12-18-2024 INR Coag (PPP) [Relative time] 1.1 {INR} 0.9-1.3 [facility] Comment on above: Vitamin K Antagonist (VKA) Therapeutic Range: INR 2 to 3 (Target INR of 2.5)Note: For patients treated with VKA drugs, such as warfarin, the [place] [employer] 2012 Guideline recommends [...] 12-18-2024 Albumin [Mass/Vol] 3.7 g/dL Low 3.9-4.9 [facility] ALP [Catalytic activity/Vol] 55 U/L 34-123 [facility] ALT [Catalytic activity/Vol] 9 U/L 7-38 [facility] AST [Catalytic activity/Vol] 16 U/L 13-35 [facility] Bilirubin [Mass/Vol] 0.2 mg/dL 0.2-1.3 [facility] Calcium [Mass/Vol] 9.4 mg/dL 8.5-10.2 [facility] Chloride [Moles/Vol] 99 mmol/L 98-107 [facility] CK [Catalytic activity/Vol] 37 U/L Low 42-196 [facility] CO2 [Moles/Vol] 24 mmol/L 22-30 [facility] Creatinine [Mass/Vol] 1.24 mg/dL High 0.58-0.96 [facility] Glucose [Mass/Vol] 153 mg/dL High 74-99 [facility] Comment on above: The [place] Diabete s Association (ADA) provides guidance for [...] Standards of Medical Care in Diabetes 2016, [place] [employer]. Diabetes Care. 2016.39(Suppl 1). Lipase [Catalytic activity/Vol] 24 U/L 16-61 [facility] Magnesium [Mass/Vol] 2.0 mg/dL 1.7-2.3 [facility] Potassium [Moles/Vol] 3.1 mmol/L Low 3.7-5.1 [facility] Sodium [Moles/Vol] 138 mmol/L 136-144 [facility] Urea nitrogen [Mass/Vol] 22 mg/dL High 7-21 [facility] Laboratory - Hematology and Cell countsOrdered By: Govind Snow on 12-18-2024 Eosinophils (Bld) [#/Vol] 0.34 10*3/uL <0.46 [facility] Immature granulocytes/100 WBC (Bld) 0.1 % [facility] Leukocytes [#/volume] correc mary for nucleated erythrocytes in Blood by Automated counOrdered By: Govind Snow on 12-18-2024 WBC corrected for nucl RBC Auto (Bld) [#/Vol] 7.47 k/uL 3.70-11.00 [facility] Lipase SerPl-cCncon 12-19-19 25 Lipase [Catalytic activity/Vol] 24 U/L Normal 16-61 [facility] Comment on above: Order Comment: Speci men Type: BLOOD SPECIMEN Ordering Facility: [facility] Address: [address] [place] [address] Performed By: #### 2 157-6, 43666-8, 3040-3, 90077-3 #### [facility] CLIA [id number] [address] [place] [address] [place] [facility] Lymphocytes Auto (Bld) [#/Vo l]Ordered By: Govind Snow on 12-18-2024 Lymphocytes (Bld) [#/Vol] 3.86 10*3/uL 1.00-4.00 [facility] Lymphocytes/100 WBC Auto (Bl d)Ordered By: Govind Snow on 12-18-2024 Lymphocytes/100 WBC (Bld) 51.7 % [facility] MCH Auto (RBC) [Entitic mass ]Ordered By: Govind Snow on 12-18-2024 MCH (RBC) [Entitic mass] 32.5 pg 26.0-34.0 [facility] MCHC Auto (RBC) [Mass/Vol]Or dered By: Govind Snow on 12-18-2024 MCHC (RBC) [Mass/Vol] 33.3 g/dL 30.5-36.0 [facility] MCV Auto (RBC) [Entitic vol] Ordered By: Govind Snow on 12-18-2024 MCV (RBC) [Entitic vol] 97.4 fL 80.0-100.0 [facility] Magnesium SerPl-mCncon 12-18 Magnesium [Mass/Vol] 2.0 mg/dL Normal 1.7-2.3 [facility] Comment on above: Order Comment: Speci men Type: BLOOD SPECIMEN Ordering Facility: [facility] Address: [address] [place] [address] Performed By: #### 2 157-6, 85425-8, 3040-3, 72680-5 #### [facility] CLIA [id number] [place] [address] [place] Monocytes Auto (Bld) [#/Vol] Ordered By: Govind Snow on 12-18-2024 Monocytes (Bld) [#/Vol] 0.70 10*3/uL <0.87 [facility] Monocytes/100 WBC Auto (Bld) Ordered By: Govind Snow on 12-18-2024 Monocytes/100 WBC (Bld) 9.4 % [facility]BNP [facility] Natriuretic peptide.B prohormone N-Terminal [Mass/Vol] 507 pg/mL High <450 [facility] Comment on above: Order Comment: Speci men Type: BLOOD SPECIMEN Ordering Facility: [facility] Address: [address] [place] [address] Performed By: #### 3 3762-6 #### [facility] CLIA [id number] [address] [place] [address] [place] Natriuretic peptide.B prohor christy N-Terminal [Mass/volume] in Serum or PlasmaOrdered By: Govind Snow on 12-18-2024 Natriuretic peptide.B prohormone N-Terminal [Mass/Vol] 507 pg/mL High <450 [facility] Neutrophils Auto (Bld) [#/Vo l]Ordered By: Govind Snow on 12-18-2024 Neutrophils (Bld) [#/Vol] 2.47 10*3/uL 1.45-7.50 [facility] Neutrophils/100 WBC Auto (Bl d)Ordered By: Govind Snow on 12-18-2024 Neutrophils/100 WBC (Bld) 33.0 % [facility] No Panel InformationOrdered By: Govind Snow on 12-18-2024 Troponin T Hi Sens Cardiac Interven 12 ng/L High <12 [facility] Ethyl Alcohol Level 105 mg/dL High <11 [facility] Comment on above: Values > 80 mg/dL ma y indicate intoxication Immature Granulocyte # (Auto) <0.03 k/uL <0.10 [facility] Nucleated RBC Auto (Bld) [#/ Vol]Ordered By: Govind Snow on 12-18-2024 Nucleated RBC (Bld) [#/Vol] 10*3/uL <0.01 [facility] Nucleated erythrocytes [Pres ence] in Blood by Automated countOrdered By: Govind Snow on 12-18-2024 Nucleated RBC Auto Ql (Bld) 0.0 /100{WBC} [facility] PT panel Coag (PPP)on 2024 INR Coag (PPP) [Relative time] 1.1 {INR} Normal 0.9-1.3 [facility] Comment on above: Order Comment: Speci men Type: BLOOD SPECIMENOrdering Facility: [facility] Address: [address] [place] [address] Result Comment: Leta min K Antagonist (VKA) Therapeutic Range: INR 2 to 3 (Target INR of 2.5) Note: For patients treated with VKA drugs, such as warfarin, the [place] [employer] 2012 Guideline recommends [...] Chest 2012, 141:7S-47S Jw RA et al. JACC 2017, 70: 252-289 Performed By: #### 2 4356-8 #### [facility] CLIA [id number] [address] [facility] [place], [place] [id number] [place] [address] [place] #### 630-4 #### [facility] CLIA [id number] [address] [place] [address] [place] PT Coag (PPP) [Time] 11.7 s Normal 9.7-13.0 [facility] Comment on above: Order Comment: Speci men Type: BLOOD SPECIMENOrdering Facility: [facility] Address: [address] [place] [address] Performed By: #### 2 4356-8 #### [facility] CLIA [id number] [address] [place] #### 630-4 #### [facility] CLIA [id number] [address] [place] [address] [place] Platelet mean volume Auto (B ld) [Entitic vol]Ordered By: Govind Snow on 12-18-2024 Platelet mean volume (Bld) [Entitic vol] 8.7 fL Low 9.0-12.7 [facility] Platelets Auto (Bld) [#/Vol] Ordered By: Govind Snow on 12-18-2024 Platelets (Bld) [#/Vol] 209 10*3/uL 150-400 [facility] Protein [Mass/volume] in Ser um or PlasmaOrdered By: Govind Snow on 12-18-2024 Protein [Mass/Vol] 6.4 g/dL 6.3-8.0 [facility] Prothrombin time (PT)Ordered By: Govind Snow on 12-18-2024 PT Coag (PPP) [Time] 11.7 s 9.7-13.0 [facility] RBC Auto (Bld) [#/Vol]Ordere d By: Govind Snow on 12-18-2024 RBC (Bld) [#/Vol] 3.79 10*6/uL Low 3.90-5.20 [facility] Serum or plasma anion gap de terminationOrdered By: Govind Snow on 12-18-2024 Anion gap [Moles/Vol] 15 mmol/L - [facility] XR CHEST 1V FRONTAL PORTon 0 [...] described above with no definite acute disease. Food Packer: SHIVANI Transcribe Date/Time: Dec 18 2024 8:55P Dictated by : KATRIN PHILIP MD This examination was interpreted and the report reviewed and electronically signed by: KATRIN PHILIP MD on Dec 18 2024 8:56PM EST [id number] Normal [facility] - Chemistry and C hemistry - challengeOrdered By: Elliot Starks on 11-29-2024 Bilirubin Ql (U) Negative [facility] Glucose (U) [Mass/Vol] Negative [facility] Ketones Ql (U) Negative [facility] pH (U) 5 [pH] [facility] Specific gravity (U) [Rel density] 1.015 [facility] Urobilinogen (U) [Mass/Vol] 0.2 mg/dL [facility] Laboratory - Specimen inform ationOrdered By: Elliot Starks on 11-29-2024 Appearance (U) clear [facility] Color (U) yellow [facility] - UrinalysisOrder ed By: Elliot Starks on 11-29-2024 Leukocyte esterase Test strip Ql (U) Negative [facility] Nitrite Ql (U) Positive [facility] Protein Ql (U) Negative [facility] No Panel InformationOrdered By: Elliot Starks on 11-29-2024 Urine Occult Blood ++ [facility] CBC (NO DIFF)on 11-09-2024 Erythrocyte distribution width (RBC) [Ratio] 12.8 % Normal 11.5-15 [facility] Comment on above: Performed By: #### C BC #### [facility] ([facility]) [address] [place] [address] VIR Hematocrit (Bld) [Volume fraction] 40.0 % Normal 35-47 [facility] Comment on above: Performed By: #### C BC #### [facility] ([facility]) [address] [place] [address] VIR Hemoglobin (Bld) [Mass/Vol] 13.6 g/dL Normal 11.7-15.5 [facility] Comment on above: Performed By: #### C BC #### [facility] ([facility]) [address] [place] [address] VIR MCH (RBC) [Entitic mass] 32.7 pg Normal 27-34 [facility] Comment on above: Performed By: #### C BC #### [facility] ([facility]) [address] [place] [address] VIR MCHC (RBC) [Mass/Vol] 34.1 g/dL Normal 32-36 [facility] Comment on above: Performed By: #### C BC #### [facility] ([facility]) [address] [place] [address] VIR MCV (RBC) [Entitic vol] 96 fL Normal 80-100 [facility] Comment on above: Performed By: #### C BC #### [facility] ([facility]) [address] [place] [address] VIR Platelet mean volume (Bld) [Entitic vol] 7.0 fL Normal 7-12 [facility] Comment on above: Performed By: #### C BC #### [facility] ([facility]) [address] [place] [address] VIR Platelets (Bld) [#/Vol] 206 10*3/uL Normal 150-450 [facility] Comment on above: Performed By: #### C BC #### [facility] ([facility]) [address] [place] [address] VIR RBC COUNT 4.16 X10E12/L Normal 3.8-5.2 [facility] Comment on above: Performed By: #### C BC #### [facility] ([facility]) [address] [place] [address] VIR WBC (Bld) [#/Vol] 5.1 10*3/uL Normal 4-11 [facility] Comment on above: Performed By: #### C BC #### [facility] ([facility]) [address] [place] [address] VIR COMPREHENSIVE METABOLIC PANE Roland 11-08-2024 Albumin [Mass/Vol] 4.2 g/dL Normal 3.2-5.3 [facility] Comment on above: Performed By: #### C MP #### [facility] ([facility]) [address] [place] [address] VIR ALP [Catalytic activity/Vol] 48 U/L Normal 39-130 [facility] Comment on above: Performed By: #### C MP #### [facility] ([facility]) [address] [place] [address] VIR ALT [Catalytic activity/Vol] 10 U/L Normal <=31 [facility] Comment on above: Performed By: #### C MP #### [facility] ([facility]) [address] [place] [address] VIR Anion gap [Moles/Vol] 8 mmol/L Normal 5-15 [facility] Comment on above: Performed By: #### C MP #### [facility] ([facility]) [address] [place] [address] VIR AST [Catalytic activity/Vol] 17 U/L Normal <=41 [facility] Comment on above: Performed By: #### C MP #### [facility] ([facility]) [address] [place] [address] VIR Bilirubin [Mass/Vol] 0.5 mg/dL Normal 0.3-1.2 [facility] Comment on above: Performed By: #### C MP #### [facility] ([facility]) [address] [place] [address] VIR Calcium [Mass/Vol] 10.0 mg/dL Normal 8.5-10.5 [facility] Comment on above: Performed By: #### C MP #### [facility] ([facility]) [address] [place] [address] VIR Chloride [Moles/Vol] 101 mmol/L Normal 98-109 [facility] Comment on above: Performed By: #### C MP #### [facility] ([facility]) [address] [place] [address] VIR CO2 [Moles/Vol] 32 mmol/L Normal 22-32 [facility] Comment on above: Performed By: #### C MP #### [facility] ([facility]) [address] [place] [address] VIR Creatinine [Mass/Vol] 1.06 mg/dL High 0.40-1.00 [facility] Comment on above: Result Comment: METH OD TRACEABLE TO IDMS STANDARD Performed By: #### C MP #### [facility] ([facility]) [address] [place] [address] VIR GFR/1.73 sq M.predicted among non-blacks MDRD (S/P/Bld) [Vol rate/Area] 54 mL/min/{1.73_m2} Low >=60 [facility] Comment on above: Result Comment: Repo rted eGFR is based on the CKD-EPI 2020 equation that does not use a race coefficient. Performed By: #### C MP #### [facility] ([facility]) [address] [place] [address] VIR Glucose [Mass/Vol] 109 mg/dL High 65-99 [facility] Comment on above: Performed By: #### C MP #### [facility] ([facility]) [address] [place] [address] VIR Potassium [Moles/Vol] 3.9 mmol/L Normal 3.5-5.0 [facility] Comment on above: Performed By: #### C MP #### [facility] ([facility]) [address] [place] [address] VIR Protein [Mass/Vol] 7.2 g/dL Normal 6.0-8.0 [facility] Comment on above: Performed By: #### C MP #### [facility] ([facility]) [address] [place] [address] VIR Sodium [Moles/Vol] 141 mmol/L Normal 134-146 [facility] Comment on above: Performed By: #### C MP #### [facility] ([facility]) [address] [place] [address] VIR Urea nitrogen [Mass/Vol] 27 mg/dL Normal 5-27 [facility] Comment on above: Performed By: #### C MP #### [facility] ([facility]) [address] [place] [address] VIR MAGNESIUMon 11-08-2024 Magnesium [Mass/Vol] 1.9 mg/dL Normal 1.8-2.6 [facility] Comment on above: Performed By: #### M G #### [facility] ([facility]) [address] [place] [address] VIR POCT EKGOrdered By: Cora case on 11-08-2024 [facility] Ambulatory Visit Summaryon 0 10-26-2024 Ambulatory [...] 40 mg Cap-DR) potassium chloride (Potassium Chloride (Xji-Alel-Pxw 10) 10 mEq oral tablet, extended release) [...] E Osman PA-C Where: [facility] [address] [place] [address]- Medications What How Much When Why Instructions [...] 1 Capsules Unchanged potassium chloride (Potassium Chloride (Nql-Iyjo-Ctk 10) 10 mEq oral tablet, extended release) [...] signed up for this yet, please contact [employer] at [phone] to get signed up today. Language Information Language assistance services are available as needed. Normal [facility] Urology Office/Clinic Noteon 10-26-2024 Urology [...] off and repeat Botox is desired Ordered: 24614 Measure Post Void residual urine and/or bladder capacity by US- non-imaging Urnls Dip Stick Auto w/o Microscopy POC 45000 2. Frequent UTI (N39.0: Urinary tract infection, [...] -Cont symptom monitoring -High fluid intake, add lemon/manzanita -Moderate animal protein, increase fruits and vegetables 4. 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 She has had a hematuria workup including a scope in the past at [facility]. Denies gross hematuria. CTU 07/18/24 - neg for filling defects, 3 mm right ureteral stone noted. Follow up CT scan confirmed passage. S/p cysto 09/19/24 - negative for b.t., lesions, stones or foreign bodies. Cystitis cystica. Moderate vaginal atrophy. UA today w/ moderate bloo (more content not included)... Normal [facility] Comment on above: Result Comment: Elec tronically Signed By: Jacqui MOTT, Maria E\.br\Date and Time Signed: 10/26/24 09:05 EDT Inpatient Patient Summaryon 09-19-2024 Inpatient Patient Summary Inpatient Patient Summary [place] [address] Clinical Summary Person Information Name: BETTIE BURNS Age: 79 Years : 1945 Sex: Female PCP: ELLIOT STARKS MD Marital Status: Race: White Ethnicity: Non- or Language: Mohawk Visit Id: Visit Reason: MIXED INCONTINENCE Speciality: Acuity: Enc Type: Outpatient Med Service: Surgery Arrival: 09/19/2024 07:39:26 Discharge: Dispo Type: Address: [address] [place] [id number] Provider Notes: Diagnosis: Mixed incontinence; Recurrent UTI; [...] Cap-DR) 1 Capsules. potassium chloride (Potassium Chloride (Wqq-Qazl-Woj 10) 10 mEq oral tablet, extended release) [...] Cystoscopy with Botox Injection Discharge Instructions (CUSTOM) [facility] Main OR Intraoperative Recor don 09-19-2024 Main OR Intraoperative Record Main OR Intraoperative Record IntraOp Document Type FTURO Summary Primary Physician: Alfreda Miller MD Finalized Date/Time: 09/19/24 08:27:50 Pt. Name: BETTIE BURNS Diana Browning/Sex: 1945 Female Med Rec #: [id number] Physician: Alfreda Miller MD Financial #: [id number] Pt. Type: O Room/Bed: / Admit/Disch: 09/19/24 07:39:26 - Institution: Case Times FTURO Entry 1 Patient Times In Room 09/19/24 08:12:00 Out Room 09/19/24 08:24:00 Procedure Times Start 09/19/24 08:17:00 Stop 09/19/24 08:20:00 Anesthesia Times Last Modified By: Roxy King 09/19/24 08:27:24 General Comments: BOTOX 100 UNITS: EXP: AND LOT: [id number].Emelina MOREIRA Case Attendance FTURO Entry 1 Entry 2 Entry 3 Case Attendee Paul VILLEGAS, Roxy Herrera Laura C Role Performed Surgeon - Primary Stakes Player - Primary Scrub - Primary Time In [...] Signed By: Roxy King 09/19/24 08:27 Normal [facility] Main OR Preoperative Recordo n 09-19-2024 Main OR Preoperative Record Main OR Preoperative Record Holding Area Document Type FTURO Summary Primary Physician: Alfreda Miller MD Finalized Date/Time: 09/19/24 08:17:11 Pt. Name: BETITE BURNS /Sex: 1945 Female Med Rec #: [id number] Physician: Alfreda Miller MD Financial #: [id number] Pt. Type: O Room/Bed: / Admit/Disch: 09/19/24 [...] Complaints of Pain: No Skin Integrity Intact, [place], Warm, & Dry Vitals - EU Blood [...] Unfinalizing Freetext Reason for Unfinalizing 09/19/24 08:16 [id number] Adding Additional Data Normal [facility] Operative Reporton Operative Report Operative Report Patient: [...] regarding vaginal atrophy and recurrent UTIs. Normal [facility] Comment on above: Result Comment: Elec tronically Signed By: Alfreda Miller MD\.br\Date and Time Signed: 09/19/24 08:25 EDT Outpatient Surgery Discharge Instructionon 09-19-2024 Outpatient Surgery Discharge Instruction Outpatient Surgery Discharge Instruction [place] [id number] Patient Discharge Instructions PERSON INFORMATION Name: BETTIE [...] you. Thank you for choosing [facility] Normal [facility] C Urineon 09-14-2024 Bacteria identified Cx Nom [...] Locations R1: This test was performed at: [facility], [address] [place] [address], [id number] , , [facility] Comment on above: Performed By: #### 2 [id number] #### [facility] [address] [place] [address] Performed By: #### 2 [id number] ####[facility] [address] [place] [address] C Urineon 06-24-2024 Bacteria identified Cx Nom [...] Locations R1: This test was performed at: [facility], [address] [place] [address], [facility] , , [facility] Comment on above: Performed By: #### 2 [id number] #### [facility] [address] [place] [address] Ambulatory Visit Summaryon 0 06-22-2024 Ambulatory Visit [...] 40 mg Cap-DR) potassium chloride (Potassium Chloride (Lvj-Vlso-Eoz 10) 10 mEq oral tablet, extended release) [...] 1 Capsules Unchanged potassium chloride (Potassium Chloride (Gfc-Kzfy-Kmr 10) 10 mEq oral tablet, extended release) [...] for choosing us for your care. Normal [facility] URINALYSISOrdered By: Tien Lyon on 06-22-2024 Bacteria [...] that meet specific criteria set forth by [facility]. Epithelial cells.squamous Auto (Urine sed) [#/Area] [...] Urobilinogen (U) [Mass/Vol] Negative Normal Negativemg/ dL [facility] UA Auto SS WBC Auto (Urine sed) [#/Area] 31-75 *ABN* (06/22/24 1:48 PM) Invalid Interpretation Code 0-5 [facility] UA Auto SS URINALYSISOrdered By: Catina Corona on 06-22-2024 UA Spec Desc Random Urine (06/22/24 1:48 PM) Normal [facility] UA Auto SS Urinalysis with Microon 06-04 Bacteria Auto Ql (U) 1+ /HPF Abnormal Trace [facility] Comment on above: Performed By: #### 4 [id number] #### [facility] [address] [place] [address] Bilirubin Ql (U) Negative Normal Negative [facility] Comment on above: Performed By: #### 4 [id number] #### [facility] [address] [place] [address] Clarity (U) Clear Normal Clear [facility] Comment on above: Performed By: #### 4 [id number] #### [facility] [address] [place] [address] Color (U) Light-Yellow Normal Yellow [facility] Comment on above: Result Comment: Micr oscopic readings are only performed on those samples that meet specific criteria set forth by [facility]. Performed By: #### 4 [id number] #### [facility] [address] [place] [address] Epithelial cells.squamous Auto (Urine sed) [#/Area] 0-2 Invalid Interpretation Code [facility] Comment on above: Performed By: #### 4 [id number] #### [facility] [address] [place] [address] Glucose Ql (U) Negative Normal Negative [facility] Comment on above: Performed By: #### 4 [id number] #### [facility] [address] [place] [address] Hemoglobin Auto test strip (U) [Mass/Vol] 2+ Abnormal Negative [facility] Comment on above: Performed By: #### 4 [id number] #### [facility] [address] [place] [address] Ketones Auto test strip Ql (U) Negative Normal Negative [facility] Comment on above: Performed By: #### 4 [id number] #### [facility] [address] [place] [address] Leukocyte esterase Auto test strip Ql (U) 250 Felipe/uL Abnormal Negative [facility] Comment on above: Performed By: #### 4 [id number] #### [facility] [address] [place] [address] Mucus Auto Ql (U) Negative Normal Negative [facility] Comment on above: Performed By: #### 4 [id number] #### [facility] [address] [place] [address] Nitrite Auto test strip Ql (U) Negative Normal Negative [facility] Comment on above: Performed By: #### 4 [id number] #### [facility] [address] [place] [address] pH (U) 6.0 [pH] Invalid Interpretation Code 5.0-9.0 [facility] Comment on above: Performed By: #### 4 [id number] #### [facility] [address] [place] [address] Protein Ql (U) Negative Normal Negative [facility] Comment on above: Performed By: #### 4 [id number] #### [facility] [address] [place] [address] RBC Ql (U) 4-20 Abnormal 0-3 [facility] Comment on above: Performed By: #### 4 [id number] #### [facility] [address] [place] [address] Specific gravity (U) [Rel density] 1.013 Invalid Interpretation Code 1.005-1.030 [facility] Comment on above: Performed By: #### 4 [id number] #### [facility] [address] [place] [address] Urobilinogen (U) [Mass/Vol] Negative Normal Negative [facility] Comment on above: Performed By: #### 4 [id number] #### [facility] [address] [place] [address] WBC Auto (Urine sed) [#/Area] 31-75 Abnormal 0-5 [facility] Comment on above: Performed By: #### 4 [id number] #### [facility] [address] [place] [address] Type of Urine collection method Random Urine Normal [facility] Comment on above: Performed By: #### 4 [id number] #### [facility] [address] [place] [address] Urology Office/Clinic Noteon 06-22-2024 Urology Office/Clinic Note [...] in no acute distress. Assessment/Plan [facility] patient, last seen in-office 05/27/23 78 [...] pending completion of cystoscopy w/ KML Ordered: 55437 Measure Post Void residual urine and/or bladder [...] Urnls Dip Stick Auto w/o Microscopy POC 95573 2. Frequent UTI (N39.0: Urinary tract infection, [...] UTIs for (more content not included)... Normal [facility] Comment on above: Result Comment: Elec tronically Signed By: Maria E Osman PA-C\.br\Date and Time Signed: 06/22/24 15:08 EST Shane 09-17-2023 PAN Telephone (MARIA TERESA) BETTIE BURNS ([id number]) 1945 F Date Time Provider Department 09/17/23 MATT ADAMS During your visit today, we recorded the following information about you: Matt Adams, RICARDO 09/17/2023 10:20 AM Signed Pt called to request yearly Mammogram order I have pended order as previously completed Pt requests to fax to Nori Lema [phone] BRM/HM: please review and sign if agreeable [...] mammogram for malignant neoplasm of breast [Z12.31] Order(s):[facility] SCREENING W YAW [[id number]] Order #: [id number] FUTURE Prescriptions as of 09/17/2023 - lisinopril [...] Status:Closed by ANDREW CHOI on 09/17/23 Normal [facility] BASIC METABOLIC PANELon 03-0 Anion gap [Moles/Vol] 1 mmol/L MMOL/L [facility] [employer] [facility] Calcium [Mass/Vol] 8.7 mg/dL [facility] Chloride [Moles/Vol] 103 mmol/L [facility] Comment on above: Please note: Triglyc eride levels of 600mg/dL or higher may positively bias chloride results by approximately 2.1 mmol CO2 [Moles/Vol] 30 mmol/L [facility] Creatinine [Mass/Vol] 1.10 mg/dL [facility] [employer] GFR COMMENT Average GFR for 70+ years old = 75. [facility] Comment on above: Chronic Kidney disea se, GFR = <60. Kidney failure, GFR = <15. The GFR estimate is not adjusted for extreme body surface area or acute process, nor has it been validated for women or ethnic groups other than and . GFR/1.73 sq M.predicted among blacks MDRD (S/P/Bld) [Vol rate/Area] 62 mL/min/{1.73_m2} ml/min/1.73 sq.m [facility] [employer] [facility] GFR/1.73 sq M.predicted among non-blacks MDRD (S/P/Bld) [Vol rate/Area] 51 mL/min/{1.73_m2} ml/min/1.73 sq.m [facility] Glucose post fast [Mass/Vol] 141 mg/dL High [facility] Comment on above: NORMAL <100 mg/dL PREDIABETES 101-126 mg/dL DIABETES 126 mg/dL or higher Interpretation and review of laboratory results Abnormal [facility] Potassium [Moles/Vol] 3.8 mmol/L [facility] Sodium [Moles/Vol] 134 mmol/L Low [facility] Urea nitrogen [Mass/Vol] 30 mg/dL High [facility] CBC, EDIF, PLATELETon 2023 ABSOLUTE BASOPHIL COUNT 0.0 10*3/uL 0.0 - 0.2 10*3/uL [facility] Basophils/100 WBC (Bld) 0.3 % 0.0 - 2.0 % [facility] Differential cell count method Nom (Bld) AUTO DIFF % [facility] Eosinophils (Bld) [#/Vol] 0.0 10*3/uL 0.0 - 0.7 10*3/uL [facility] Eosinophils/100 WBC (Bld) 0.0 % 0.0 - 11.0 % [facility] Erythrocyte distribution width (RBC) [Ratio] 13.2 % 11.5 - 14.5 % [facility] Hematocrit (Bld) [Volume fraction] 33.6 % Low 36.0 - 48.0 % [facility] Hemoglobin (Bld) [Mass/Vol] 12.0 g/dL [facility] Interpretation and review of laboratory results Abnormal [facility] Lymphocytes (Bld) [#/Vol] 1.1 10*3/uL Low 1.2 - 3.4 10*3/uL [facility] Lymphocytes/100 WBC (Bld) 16.4 % Low 20.0 - 55.0 % [facility] MCH (RBC) [Entitic mass] 33.6 pg 26.0 - 35.[address] [facility] MCHC (RBC) [Mass/Vol] 35.6 g/dL [facility] MCV (RBC) [Entitic vol] 94.2 fL [facility] Monocytes (Bld) [#/Vol] 0.3 10*3/uL 0.0 - 0.7 10*3/uL [facility] Monocytes/100 WBC (Bld) 4.3 % 0.0 - 10.0 % [facility] Neutrophils (Bld) [#/Vol] 5.2 10*3/uL 1.4 - 6.5 10*3/uL [facility] Neutrophils/100 WBC (Bld) 79.0 % High 37.0 - 75.0 % [facility] Platelet mean volume (Bld) [Entitic vol] 7.0 fL Low [facility] Platelets (Bld) [#/Vol] 226 10*3/uL 130 - 400 10*3/uL [facility] RBC (Bld) [#/Vol] 3.57 10*6/uL Low 4.0 - 5.4 10*6/uL [facility] WBC (Bld) [#/Vol] 6.6 10*3/uL 3.6 - 11.0 10*3/uL [facility] BODY FLUID CELL COUNTon 03-0 Appearance (Body fld) HAZY [facility] Color (Body fld) LIGHT YELLOW [facility] RBC Auto (Body fld) [#/Vol] 3376 /CMM [facility] Specimen source Nom (Body fld) SYNOVIAL FLUID [facility] WBC (Body fld) [#/Vol] 57 10*3/uL /CMM [facility] DIFFERENTIAL, FLUIDon 2023 BASOPHILS, FLUID 2 % [facility] Comment on above: NO REFERENCE RANGE E STABLISHED Eosinophils/100 WBC (Body fld) 4 % [facility] Comment on above: NO REFERENCE RANGE E STABLISHED Lymphocytes/100 WBC (Body fld) 22 % [facility] Comment on above: NO REFERENCE RANGE E STABLISHED MESOTHELIAL CELLS, FLUID 8 % [facility] Comment on above: NO REFERENCE RANGE E STABLISHED Monocytes+Macrophages/1 00 WBC Manual cnt (Body fld) 48 % [facility] Comment on above: NO REFERENCE RANGE E STABLISHED Neutrophils/100 WBC (Body fld) 16 % [facility] Comment on above: NO REFERENCE RANGE E STABLISHED [facility] REPEAT ABO/RH (D) TYPINGon 0 07-07-2023 ABO and Rh group Nom (Bld ) Positive [facility] SCREEN: MRSA ONLY, NARES (IS OLATION SCREEN)on 07-07-2023 MRSA isol Org specific cx Ql (Nose) Negative NEGATIVE [facility] STAPHYOCOCCUS AUREUS BY PCR Negative NEGATIVE [facility] Comment on above: TESTING PERFORMED BY PCR [facility] XR Pelvis 2 Viewson 07-07-19 FINDINGS/IMPRESSION: [...] or other acute bony abnormality is seen. [facility] Radiology Study observation (narrative) flaveit XR Pelvis 2 ViewsOrdered By: Parveen [place] on 07-07-2023 [facility] Work Phone: POCT EKGOrdered By: Samantha Gurrola on 06-02-2023 [employer] COBALT AND CHROMIUM,WBon Chromium (Bld) [Mass/Vol] 1.1 [facility] Comment on above: Reference range: <3. 0 Unit: ng/mL PERFORMED BY Melon #usemelon Ransom (Bld) [Mass/Vol] <1.0 [facility] [employer] Comment on above: Reference range: <3. 0 Unit: ng/mL (NOTE) Chromium and cobalt analysis performed by inductively coupled plasma/mass spectrometry (ICP/MS). Reference range is for patients with javhg-kh-kebyo (MoM) orthopedic implants. The [place] [employer] Hip and Knee [employer], the [place] [employer] Orthopaedic Surgeons, and The Hip Society, have published a consensus statement, Risk Stratification Algorithm for Management of Patients with Djlrv-vu-Wpwwo Hip Arthroplasty. The algorithm is intended as an aid to orthopedic surgeons in the assessment and management of patients with Dyxwf-yz-Vspcc bearings. The systematic risk stratification includes recommendations [...] developed and its performance characteristics determined by [employer]. It has not been cleared or approved by the Food and Drug Administration. [facility] C REACTIVE PROTEINon 024 CRP [Mass/Vol] 48.4 mg/L High 0 - 10 MG/L [facility] Interpretation and review of laboratory results Abnormal [employer] [facility] [employer] [facility] [employer] SEDIMENTATION RATE, AUTOMATE Don 05-14-2023 ESR (Bld) [Velocity] 31 mm/h High [employer] [facility] Interpretation and review of laboratory results Abnormal [facility] [employer] [facility] [employer] Urinalysis - DIPSTICKon 10-03 Appearance (U) cloudy [employer] Other Bilirubin Ql (U) [employer] Other Color (U) yellow [employer] Other Glucose Ql (U) Negative [employer] Other Hemoglobin Ql (U) [employer] Other Ketones Ql (U) Negative [employer] Other Leukocyte esterase Test strip Ql (U) moderate [employer] Other Nitrite Ql (U) Positive [employer] Other pH (U) 5 [pH] [employer] Other Protein Ql (U) Negative [employer] Other Specific gravity (U) [Rel density] 1.010 [employer] Other Urobilinogen (U) [Mass/Vol] off chart [facility] [employer] Other Urinalysis - DIPSTICK [facility] [employer] Other Urine Cultureon 10-27-2022 Bacteria identified Cx Nom (U) ORGANISM: Escherichia coli (O:ESCCOL) [place] Count >100,000 Aerobic AUBREY Charge (NMIC56) ---- [...] RESISTANT TO ALL B-LACTAM DRUGS. PERFORMED BY: [place] [address] PATHOLOGIST [employer]ERNOR JOSE GUADALUPE FERGUSON M.D. Normal [facility] Comment on above: Performed By: #### C UU #### [address] Urinalysis - DIPSTICKon 06-05 Appearance (U) cloudy [employer] Other Bilirubin Ql (U) Negative [employer] Other Color (U) pale yellow [employer] Other Glucose Ql (U) Negative [employer] Other Hemoglobin Ql (U) non hem-trace [facility] [employer] Other Ketones Ql (U) trace [employer] Other Leukocyte esterase Test strip Ql (U) moderate [employer] Other Nitrite Ql (U) Negative [employer] Other pH (U) 5 [pH] [employer] Other Protein Ql (U) trace [employer] Other Specific gravity (U) [Rel density] 1.005 [place] [employer] Other Urobilinogen (U) [Mass/Vol] normal [place] [employer] Other Urinalysis - DIPSTICK [facility] [employer] Other CULTURE URINEon 06-11-2022 CULTURE URINE Isolate [...] F Trimethoprim/Sulfamet hoxazole <=20 S F Normal [facility] Comment on above: Performed By: #### U RCX #### [facility] [address] [place] [address] [address] Florencio Narayanan CARDIAC AMBER ADMITon 023 CK [Catalytic activity/Vol] 44 U/L Normal 26-192 [facility] Comment on above: Performed By: #### C MP, LIPA, CMADM #### [facility] [address] [place] [address] [address] Florencio Narayanan CK.MB [Mass/Vol] ng/mL Normal <=3.60 [facility] Comment on above: Performed By: #### C MP, LIPA, CMADM #### [facility] [address] [place] [address] [address] Florencio Narayanan HSTROP 14.6 pg/mL Normal 4.0-51.3 [facility] Comment on above: Result Comment: CUT- OFF POINTS HAVE BEEN ESTABLISHED BASED ON THE FOURTH UNIVERSAL DEFINITIONS OF MYOCARDIAL INFARCTION. THE UPPER REFERENCE LIMIT (URL) OF TROPONIN, DEFINED THE 99TH PERCENTILE OF cTnI DISTRIBUTION IN A REFERENCE POPULATION, HAS BEEN CONFIRMED THE DECISION THRESHOLD FOR IA DIAGNOSIS. Performed By: #### C MP, LIPA, CMADM #### [facility] [address] [place] [address] Dr. Florencio Narayanan UMER 109 ng/mL Critically high 9-82 [facility] Comment on above: Performed By: #### C MP, LIPA, CMADM #### [facility] [address] [place] [address] Dr. Florencio Narayanan CBC AUTO DIFFon 06-09-2022 BASO # 0.1 103/ul Normal 0.0-0.1 [facility] Comment on above: Performed By: #### C BC #### [facility] [address] [place] [address] Dr. Florencio Narayanan Basophils/100 WBC (Bld) 0.4 % Normal 0.2-2.0 [facility] Comment on above: Performed By: #### C BC #### [facility] [address] [place] [address] Dr. Florencio Narayanan EO # 0.0 103/ul Normal 0.0-0.7 [facility] Comment on above: Performed By: #### C BC #### [facility] [address] [place] [address] [address] Florencio Narayanan Eosinophils/100 WBC (Bld) 0.2 % Critically low 0.9-7.0 [facility] Comment on above: Performed By: #### C BC #### [facility] [address] [place] [address] Dr. Florencio Narayanan Erythrocyte distribution width (RBC) [Ratio] 12.3 % Normal 11.0-15.0 [facility] Comment on above: Performed By: #### C BC #### [facility] [address] [place] [address] Dr. Florencio Narayanan Hematocrit (Bld) [Volume fraction] 38.4 % Normal 36.0-48.0 [facility] Comment on above: Performed By: #### C BC #### [facility] [address] [place] [address] Dr. Florencio Narayanan Hemoglobin (Bld) [Mass/Vol] 12.7 g/dL Normal 12.0-16.0 [facility] Comment on above: Performed By: #### C BC #### [facility] [address] [place] [address] Dr. Florencio Narayanan IG # 0.06 10e3/ul Critically high 0.00-0.[address] [facility] Comment on above: Performed By: #### C BC #### [facility] [address] [place] [address] Dr. Florencio Narayanan IG % 0.5 % Normal 0.0-0.5 [facility] Comment on above: Performed By: #### C BC #### [facility] [address] [place] [address] Dr. Florencio Narayanan LYMPH # 1.0 103/ul Critically low 1.2-3.8 [facility] Comment on above: Performed By: #### C BC #### [facility] [address] [place] [address] Dr. Florencio Narayanan Lymphocytes/100 WBC (Bld) 8.4 % Critically low 20.5-60.0 [facility] Comment on above: Performed By: #### C BC #### [facility] [address] [place] [address] Dr. Florencio Narayanan MANUAL DIFF REQ NO Normal [facility] Comment on above: Performed By: #### C BC #### [facility] [address] [place] [address] Dr. Florencio Narayanan MCH (RBC) [Entitic mass] 32.4 pg Normal 26.7-34.0 [facility] Comment on above: Performed By: #### C BC #### [facility] [address] [place] [address] Dr. Florencio Narayanan MCHC (RBC) [Mass/Vol] 33.1 g/dL Normal 29.9-35.2 [facility] Comment on above: Performed By: #### C BC #### [facility] [address] [place] [address] Dr. Florencio Narayanan MCV (RBC) [Entitic vol] 98.0 fL Normal 81.0-99.0 [facility] Comment on above: Performed By: #### C BC #### [facility] [address] [place] [address] Dr. Florencio Narayanna MONO # 1.6 103/ul Critically high 0.3-0.8 [facility] [place] Comment on above: Performed By: #### C BC #### [facility] [address] [place] [address] Dr. Florencio Narayanan Monocytes/100 WBC (Bld) 13.1 % Critically high 1.7-12. 0 [facility] Comment on above: Performed By: #### C BC #### [facility] [address] [place] [address] Dr. Florencio Narayanan NEUT # 9.5 103/ul Critically high 1.4-6.5 [facility] Comment on above: Performed By: #### C BC #### [facility] [address] [place] [address] Dr. Florencio Narayanan Neutrophils/100 WBC (Bld) 77.4 % Critically high 43.0-75.0 [facility] Comment on above: Performed By: #### C BC #### [facility] [address] [place] [address] [address] Florencio Narayanan Platelet mean volume (Bld) [Entitic vol] 9.4 fL Critically low 9.5-13.5 [facility] Comment on above: Performed By: #### C BC #### [facility] [address] [place] [address] [address] Florencio Narayanan PLT 140 103/ul Critically low 150-450 [facility] Comment on above: Performed By: #### C BC #### [facility] [address] [place] [address] [address] Florencio Narayanan RBC 3.92 106/ul Critically low 4.20-5.40 [facility] [facility] Comment on above: Performed By: #### C BC #### [facility] [address] [address] [address] Florencio Narayanan WBC 12.2 103/ul Critically high 4.0-11.0 [facility] Comment on above: Performed By: #### C BC #### [facility] [address] [address] STROKE HEAD WOon [...] LUANA VILLAFANA Date: 2022-06-09 12:24 Normal [facility]-19 [facility]on SARS-CoV-2 (COVID-19) RNA CHRISTOPHER+probe Ql (Unsp spec) Not detected Normal NOT DETECTED [facility] Comment on above: Result Comment: When [...] for this test is supported by the [place] of Health and Human Service's declaration that [...] longer be used). Performed By: #### C [facility] #### [facility] [address] [place] [address] Dr. Florencio Narayanan ER URINE PROFILEon 3 Bilirubin Ql (U) Negative Normal NEGATIVE [facility] Comment on above: Performed By: #### Malini PIZANO UMICRO #### [facility] [address] [place] [address] Dr. Florencio Narayanan Clarity (U) CLEAR Normal CLEAR [facility] Comment on above: Performed By: #### Malini PIZANO UMICRO #### [facility] [address] [place] [address] Dr. Florencio Narayanan Color (U) LT. YELLOW Normal YELLOW [facility] Comment on above: Performed By: #### E RUR, UMICRO #### [facility] [address] [place] [address] Dr. Florencio Narayanan ERUAHD A micrscopic examination will be performed if indicated. Normal [facility] Comment on above: Performed By: #### E RUR, UMICRO #### [facility] [address] [place] [address] Dr. Florencio Narayanan Glucose Ql (U) Negative Normal NEGATIVE [facility] Comment on above: Performed By: #### E DANGELOR, UMICRO #### [facility] [address] [place] [address] Dr. Florencio Narayanan Hemoglobin Ql (U) LARGE Abnormal NEGATIVE [facility] Comment on above: Performed By: #### ADIEL LE #### [facility] [address] [place] [address] Dr. Florencio Narayanan Ketones Ql (U) TRACE Abnormal NEGATIVE [facility] Comment on above: Performed By: #### LIYAH LERO #### [facility] [address] [place] [address] Dr. Florencio Narayanan LEUKOCYTES LARGE Abnormal NEGATIVE [facility] Comment on above: Performed By: #### ADIEL LE #### [facility] [address] [place] [address] Dr. Florencio Narayanan Nitrite Ql (U) Positive Abnormal NEGATIVE [facility] Comment on above: Performed By: #### ADIEL LE #### [facility] [address] [place] [address] Dr. Florencio Narayanan pH (U) 5.5 [pH] Normal 5-9 [facility] Comment on above: Performed By: #### ADIEL LE #### [facility] [address] [place] [address] Dr. Florencio Narayanan SPEC GRAVITY 1.010 Normal 1.005-<=1.0 25 [facility] Comment on above: Performed By: #### ADIEL LE #### [facility] [address] [place] [address] Dr. Florencio Narayanan UA PROTEIN TRACE Normal NEGATIVE/ TRACE [facility] Comment on above: Performed By: #### LIYAH LERO #### [facility] [address] [place] [address] Dr. Florencio Narayanan UR MICRO IND INDICATED Normal [facility] Comment on above: Performed By: #### ADIEL LE #### [facility] [address] [place] [address] Dr. Florencio Narayanan Urobilinogen Qn (U) 0.2 {Zenia'U}/dL Normal 0.2 - 1. 0 [facility] Comment on above: Performed By: #### E LIYAH PIZANORO #### [facility] [address] [address] [address] Florencio Narayanan LIPASEon 06-09-2022 Lipase [Catalytic activity/Vol] 68.0 U/L Critically low 73.0-393.0 [facility] Comment on above: Performed By: #### C MP, LIPA, CMADM #### [facility] [address] [address] [address] Florencio Narayanan PROF 14(COMP METB)on 023 Albumin [Mass/Vol] 2.5 g/dL Critically low 3.4-5.0 [facility] Comment on above: Performed By: #### C MP, LIPA, CMADM #### [facility] [address] [place] [address] Dr. Florencio Narayanan Albumin/Globulin [Mass ratio] 0.6 {ratio} Normal [facility] Comment on above: Performed By: #### C MP, LIPA, CMADM #### [facility] [address] [address] [address] Florencio Narayanan ALP [Catalytic activity/Vol] 150 U/L Critically high 46-116 [facility] Comment on above: Performed By: #### C MP, LIPA, CMADM #### [facility] [address] [place] [address] Dr. Florencio Narayanan ALT [Catalytic activity/Vol] 27 U/L Normal 14-59 [facility] Comment on above: Performed By: #### C MP, LIPA, CMADM #### [facility] [address] [address] [address] Florencio Narayanan Anion gap [Moles/Vol] 12.8 mmol/L Normal [facility] Comment on above: Performed By: #### C MP, LIPA, CMADM #### [facility] [address] [address] [address] Florencio Narayanan AST [Catalytic activity/Vol] 31 U/L Normal 15-37 [facility] Comment on above: Performed By: #### C MP, LIPA, CMADM #### [facility] [address] [address] [address] Florencio Narayanan Bilirubin [Mass/Vol] 1.1 mg/dL Critically high 0.2-1.0 [facility] Comment on above: Performed By: #### C MP, LIPA, CMADM #### [facility] [address] [address] [address] Florencio Narayanan Calcium [Mass/Vol] 9.1 mg/dL Normal 8.5-10.1 [facility] Comment on above: Performed By: #### C MP, LIPA, CMADM #### [facility] [address] [place] [address] Dr. Florencio Narayanan Chloride [Moles/Vol] 95 mmol/L Critically low 98-107 [facility] Comment on above: Performed By: #### C MP, LIPA, CMADM #### [facility] [address] [place] [address] Dr. Florencio Narayanan CO2 [Moles/Vol] 29.4 mmol/L Normal 21.0-32.0 [facility] Comment on above: Performed By: #### C MP, LIPA, CMADM #### [facility] [address] [place] [address] Dr. Florencio Narayanan Creatinine [Mass/Vol] 1.34 mg/dL Critically high 0.55-1.02 [facility] Comment on above: Performed By: #### C MP, LIPA, CMADM #### [facility] [address] [place] [address] Dr. Florencio Narayanan EGFR-AF ZAMBIAN 47 mL/min/1.73m2 Critically low >=60 [facility] Comment on above: Performed By: #### C MP, LIPA, CMADM #### [facility] [address] [place] [address] Dr. Florencio Narayanan EGFR-NON AF ZAMBIAN 39 mL/min/1.73m2 Critically low >=60 [facility] Comment on above: Performed By: #### C MP, LIPA, CMADM #### [facility] [address] [address] [address] Florencio Narayanan Globulin (S) [Mass/Vol] 4.3 g/dL Normal [facility] Comment on above: Performed By: #### C MP, LIPA, CMADM #### [facility] [address] [address] [address] Florencio Narayanan Glucose [Mass/Vol] 118 mg/dL Critically high 74-106 [facility] Comment on above: Performed By: #### C MP, LIPA, CMADM #### [facility] [address] [place] [address] Dr. Florencio Narayanan Potassium [Moles/Vol] 3.2 mmol/L Critically low 3.5-5.1 [facility] Comment on above: Performed By: #### C MP, LIPA, CMADM #### [facility] [address] [place] [address] Dr. Florencio Narayanan Protein [Mass/Vol] 6.8 g/dL Normal 6.4-8.2 [facility] Comment on above: Performed By: #### C MP, LIPA, CMADM #### [facility] [address] [place] [address] Dr. Florencio Narayanan Sodium [Moles/Vol] 134 mmol/L Critically low 136-145 [facility] Comment on above: Performed By: #### C MP, LIPA, CMADM #### [facility] [address] [place] [address] Dr. Florencio Narayanan Urea nitrogen [Mass/Vol] 29.0 mg/dL Critically high 7.0-18.0 [facility] Comment on above: Performed By: #### C MP, LIPA, CMADM #### [facility] [address] [place] [address] Dr. Florencio Narayanan Urea nitrogen/Creatinine [Mass ratio] 21.6 mg/mg Normal [facility] Comment on above: Performed By: #### C MP, LIPA, CMADM #### [facility] [address] [place] [address] Dr. Florencio Narayanan URINE MICROSCOPIC ONLYon BACTERIA SMALL Abnormal NONE SEEN [facility] Comment on above: Performed By: #### E RUR, UMICRO #### [facility] [address] [place] [address] Dr. Florencio Narayanan Bacteria identified Cx Nom (U) INDICATED Normal [facility] Comment on above: Performed By: #### E RUR, UMICRO #### [facility] [address] [place] [address] Dr. Florencio Narayanan CAST NONE SEEN Normal NONE SEEN [facility] Comment on above: Performed By: #### E RUR, UMICRO #### [facility] [address] [place] [address] Dr. Florencio Narayanan Crystals LM Nom (Urine sed) NONE SEEN Normal NONE SEEN [facility] Comment on above: Performed By: #### E RUR, UMICRO #### [facility] [address] [place] [address] Dr. Florencio Narayanan Epithelial cells LM Ql (Urine sed) FEW Abnormal NONE SEEN /RARE [facility] Comment on above: Performed By: #### Malini RUR, UMICRO #### [facility] [address] [place] [address] Dr. Florencio Narayanan MUCOUS NONE SEEN Normal NONE SEEN [facility] Comment on above: Performed By: #### E RUR, UMICRO #### [facility] [address] [place] [address] Dr. Florencio Narayanan RBC 2-5 Abnormal 0-2 [facility] Comment on above: Performed By: #### E RUR, UMICRO #### [facility] [address] [place] [address] Dr. Florencio Narayanan WBC 10-20 Abnormal NONE SEEN [facility] Comment on above: Performed By: #### Malini PIZANO, UMICRO #### [facility] [address] [place] [address] Dr. Florencio Narayanan XR CHEST 2 Von [...] JOAQUÍN ATKINS Date: 2022-06-09 12:24 Normal [facility] CULTURE URINEon 04-16-2022 CULTURE URINE Isolate [...] Trimethoprim/Sulfamet hoxazole >=320 R F Normal [facility] Comment on above: Performed By: #### C #### [facility] [address] [place] [address] Dr. Florencio Narayanan MRI Hip w/o Righton [...] Ramon Ambrocio on 09/11/2021 1545 Normal [facility] [employer] Operator Consult Reporton 03-14-2020 Consult Report [facility] BETTIE BURNS 3ET [id number] OBSV AANBEL WATKINS MD [id number] REFERRING PHYSICIAN: CONSULTING PHYSICIAN: Renetta Almanzar MD DATE OF CONSULTATION: 03/11/2020 REASON: A near syncopal event in a 74-year-old female, with a history of atrial fibrillation, previous cardiac ablation, who was the time of evaluation noted to have a positive test for COVID. HISTORY OF PRESENT ILLNESS: Mrs. Burns is a very pleasant, alert and oriented -sugu-beh female who was brought into the emergency [...] including quarantine. Many thanks. MD KALYAN GONZALEZ/Isidro /[id number] Normal [facility] BASICMETAon 03-11-2020 GFR AA >60 [facility] Comment on above: Result Comment: Afri can [place] GFR Calc Medical judgement is necessary [...] for drug dosing. Performed By: #### 1 75417, 480182, 614881 ####[facility] [address] [id number] Medical Director: Fahad Cast MD GFR/1.73 sq M predicted among non-blacks MDRD (S/P/Bld) [Vol rate/Area] 56 mL/min/1.73m? Normal [facility] Comment on above: Result Comment: Non [...] for drug dosing. Performed By: #### 1 23278, 028191, 439885 ####[facility] [address] [place] [address] Medical Director: Fahad Cast MD Osmolality [Osmolality] 291 mOsm/kg Normal 275-[address] [facility] Comment on above: Performed By: #### 1 84150, 469225, 511925 ####[facility] [address] [place] [address] Medical Director: Fahad Cast MD Urea nitrogen/Creatinine [Mass ratio] 24.5 mg/mg Normal [facility] Comment on above: Performed By: #### 1 68082, 294538, 331517 ####[facility] [address] [place] [address] Medical Director: Fahad Cast MD Calcium [Mass/Vol] 9.3 mg/dL Normal 8.5-10.5 [facility] Comment on above: Performed By: #### 1 50780, 810333, 993900 ####[facility] [address] [address] Medical Director: Fahad Cast MD Chloride [Moles/Vol] 108 mmol/L Normal 100-109 [facility] Comment on above: Performed By: #### 1 45482, 936600, 631844 ####[facility] [address] [address] Medical Director: Fahad Cast MD CO2, venous 28.9 mmol/L Normal 21.0-32.[address] [facility] Comment on above: Performed By: #### 1 11570, 400000, 683194 ####[facility] [address] [address] Medical Director: Fahad Cast MD Creatinine [Mass/Vol] 1.0 mg/dL Normal 0.6-1.0 [facility] Comment on above: Performed By: #### 1 12451, 616280, 741435 ####[facility] [address] [address] Medical Director: Fahad Cast MD Glucose [Mass/Vol] 98 mg/dL Normal 72-100 [facility] Comment on above: Result Comment: Sharon puncture should occur prior to sulfasalazine administration due to the potential for falsely depressed results. Venipuncture should occur prior to sulfapyridine administration due to the potential falsely elevated results. Baseline assay values before administration of sulfasalazine and sulfapyridine therapy would not be affected. Performed By: #### 1 72839, 976447, 954625 ####[facility] [address] [place], [place] [phone]) [phone] Director: Fahad Cast MD Potassium [Moles/Vol] 4.2 mmol/L Normal 3.5-5.1 [facility] Comment on above: Performed By: #### 1 98516, 191665, 723476 ####[facility] [address] [place] [address] Medical Director: Fahad Cast MD Sodium [Moles/Vol] 144 mmol/L Normal 135-145 [facility] Comment on above: Performed By: #### 1 62804, 882900, 583166 ####[facility] [address] [place], [place] [id number]) [phone] Director: Fahad Cast MD Urea nitrogen [Mass/Vol] 24 mg/dL High 10-[address] [facility] Comment on above: Performed By: #### 1 60296, 981712, 010398 ####[facility] [address] [place], [place] [id number]) [phone] Director: Fahad Cast MD [facility] Erythrocyte distribution width (RBC) [Ratio] 14.4 % Normal 11.5-14.[address] [facility] Comment on above: Performed By: #### 1 07253, 605669, 975802 #### [facility] [address] [place] [address] [employer] Lab[employer]: Fahad Cast MD Hematocrit (Bld) [Volume fraction] 33.9 % Low 36.0-46.[address] [facility] Comment on above: Performed By: #### 1 23374, 826615, 278813 #### [facility] [address] [place] [address] [employer]: Fahad Cast MD Hemoglobin (Bld) [Mass/Vol] 11.2 g/dL Low 12.0-16.[address] [facility] Comment on above: Performed By: #### 1 66394, 749376, 715747 #### [facility] [address] [place] [address] [employer]: Fahad Cast MD MCH (RBC) [Entitic mass] 29.5 pg Normal 27.0-34.[address] [facility] Comment on above: Performed By: #### 1 10223, 128634, 202190 #### [facility] [address] [place] [address] [employer]: Fahad Cast MD MCHC (RBC) [Mass/Vol] 33.0 g/dL Normal 32.0-37.0 [facility] Comment on above: Performed By: #### 1 92690, 953556, 299094 #### [facility] [address] [place], [place] [address] [employer]: Fahad Cast MD MCV (RBC) [Entitic vol] 89.5 fL Normal 80.0-100.0 [facility] Comment on above: Performed By: #### 1 38735, 310597, 557773 #### [facility] [address] [place] [address] [employer]: Fahad Cast MD Platelet mean volume (Bld) [Entitic vol] 6.8 fL Low 7.4-10.[address] [facility] Comment on above: Performed By: #### 1 03201, 872851, 234631 #### [facility] [address] [place] [address] [employer]: Fahad Cast MD Platelets (Bld) [#/Vol] 232 x1000 Normal 150-450 [facility] Comment on above: Performed By: #### 1 26064, 480227, 560722 #### [facility] [address] [place] [address] [employer]: Fahad Cast MD RBC (Bld) [#/Vol] 3.79 x10 Low 4.20-5.40 [facility] Comment on above: Result Comment: Note : RBC morphology is normal unless otherwise stated. Evaluation performed only if differential is requested. Performed By: #### 1 02804, 500173, 273880 #### [facility] [address] [place] [address] [employer]: Fahad Cast MD WBC (Bld) [#/Vol] 5.8 10*3/uL Normal [facility] Comment on above: Performed By: #### 1 57805, 452811, 986874 #### [facility] [address] [place] [address] [employer]: Fahad Cast MD WBC (Bld) [#/Vol] 5.8 x10 Normal 4.5-11.0 [facility] Comment on above: Performed By: #### 1 15199, 369465, 068125 #### [facility] [address] [place], [place] [address] [employer]: Fahad Cast MD D Dimer HSon 03-11-2020 D Dimer HS 821 ng/mL FEU High <=[address] [facility] Comment on above: Result Comment: Excl usion of PE and DVT The D Dimer HS assay is reported in ng/ml Fibrinogen Equivalent Units (FEU). Per nuclear equipment operator?s instructions for use, a value less than 500ng/ml (FEU) may help to exclude DVT and /or PE in outpatients when the assay is used with a clinical pretest probability assessment. D-Dimer used for DIC Screens Assay results should be used with other information, including the clinical context in forming a diagnosis. Performed By: #### C [id number] ####[facility] [address] [place] [address] Medical Director: Fahad Cast MD LDHon 03-11-2020 LDH 198 unit/L Normal 84-[address] [facility] Comment on above: Performed By: #### 1 18989, 264780, 107340 #### [facility] [address] [place] [address] [employer]: Fahad Cast MD Progress Note-Physicianon Progress Note-Physician [...] Continue home medications. 6) DVT ppx: On Radiusquis Normal [facility] Utilization Review Noteon Utilization Review Note ID Consult pendi ng DISCHARGE WRITTEN AND PLANNED. Normal [facility] AUTO DIFFon 03-10-2020 Basophils (Bld) [#/Vol] 0.05 x1000 Normal 0.00-0.20 [facility] Comment on above: Performed By: #### 1 77608, 104565, 9266664 ####[facility] [address] [place] [address] Medical Director: Fahad Cast MD Basos % 0.6 % Normal [facility] Comment on above: Performed By: #### 1 11427, 165869, 0078021 ####[facility] [address] [place] [address] Medical Director: Fahad Cast MD Eos Count 0.15 x1000 Normal 0.00-0.[address] [facility] Comment on above: Performed By: #### 1 39478, 731080, 5623201 ####[facility] [address] [place] [address] Medical Director: Fahad Cast MD Eosinophils/100 WBC (Bld) 1.8 % Normal [facility] Comment on above: Performed By: #### 1 37210, 038547, 7759344 ####[facility] [address] [place] [address] Medical Director: Fahad Cast MD Lymphocytes (Bld) [#/Vol] 1.05 x1000 Low 1.20-4.[address] [facility] Comment on above: Performed By: #### 1 86939, 398992, 9070900 ####[facility] [address] [place] [address] Medical Director: Fahad Cast MD Lymphocytes/100 WBC (Bld) 12.7 % Normal [facility] Comment on above: Performed By: #### 1 43306, 417180, 8260029 ####[facility] [address] [place] [address] Medical Director: Fahad Cast MD [place] Count 0.70 x1000 Normal 0.10-1.[address] [facility] Comment on above: Performed By: #### 1 , 309265, 3963258 ####[facility] [address] [place] [address] Medical Director: Fahad Csat MD Monocytes/100 WBC (Bld) 8.4 % Normal [facility] Comment on above: Performed By: #### 1 12220, 418406, 4423775 ####[facility] [address] [place] [address] Medical Director: Fahad Cast MD Neutrophils (Bld) [#/Vol] 6.32 x1000 Normal 1.40-8.[address] [facility] Comment on above: Performed By: #### 1 55363, 803067, 4216685 ####[facility] Ec[address]bgi[address] [place] [address] Medical Director: Fahad Cast MD Neutrophils/100 WBC (Bld) 76.4 % Normal [facility] Comment on above: Performed By: #### 1 61093, 266456, 1456893 ####[facility] [address] [place] [address] Medical Director: Fahad Cast MD COMPMETAon 03-10-2020 Albumin [Mass/Vol] 3.4 g/dL Normal 3.4-5.0 [facility] Comment on above: Performed By: #### 1 82270, 579710, 7263950 ####[facility] [address] [place], [place] [id number]) [phone] Director: Fahad Cast MD Albumin/Globulin [Mass ratio] 0.8 {ratio} Normal [facility] Comment on above: Performed By: #### 1 54191, 486015, 3511763 ####[facility] [address] [place] [address] Medical Director: Fahad Cast MD Alk Phos 71 unit/L Normal 45-[address] [facility] Comment on above: Performed By: #### 1 , 960358, 8361202 ####[facility] [address] [place] [id number]) [phone] Director: Fahad Cast MD Bilirubin [Mass/Vol] 0.37 mg/dL Normal 0.20-1.00 [facility] Comment on above: Result Comment: Use of this assay is not recommended for patients undergoing treatment with eltrombopag due to the potential for falsely elevated results. Performed By: #### 1 , 912432, 1514024 ####[facility] [address] [place] [id number]) [phone] Director: Fahad Cast MD Calcium [Mass/Vol] 9.4 mg/dL Normal 8.5-10.5 [facility] Comment on above: Performed By: #### 1 44676, 358838, 4133025 ####[facility] [address] [place] [address] Medical Director: Fahad Cast MD Chloride [Moles/Vol] 108 mmol/L Normal 100-109 [facility] Comment on above: Performed By: #### 1 , 743338, 0703491 ####[facility] [address] [place], [place] [id number]) [phone] Director: Fahad Cast MD CO2, venous 28.2 mmol/L Normal 21.0-32.[address] [facility] Comment on above: Performed By: #### 1 59462, 118237, 9010374 ####[facility] [address] [place], [place] [id number]) [phone] Director: Fahad Cast MD Creatinine [Mass/Vol] 1.2 mg/dL High 0.6-1.0 [facility] Comment on above: Performed By: #### 1 79852, 714573, 6824729 ####[facility] [address] [place] [id number]) [phone] Director: Fahad Cast MD GFR AA 53 [facility] Comment on above: Result Comment: Afri can [place] GFR Calc Medical judgement is necessary [...] for drug dosing. Performed By: #### 1 39466, 800359, [id number] ####[facility] [address] [place] [id number]) [phone] Director: Fahad Cast MD GFR/1.73 sq M predicted among non-blacks MDRD (S/P/Bld) [Vol rate/Area] 44 mL/min/1.73m? [facility] Comment on above: Result Comment: Non GFR [...] for drug dosing. Performed By: #### 1 46671, [id number], [id number] ####[facility] [address]biy[address] [place] [address] Medical Director: Fahad Cast MD Globulin (S) [Mass/Vol] 4.0 g/dL Normal [facility] Comment on above: Performed By: #### 1 85027, 716129, [id number] ####[facility] [address]zso[address] [place] [address] Medical Director: Fahad Cast MD Glucose [Mass/Vol] 143 mg/dL High 72-100 [facility] Comment on above: Result Comment: Sharon puncture should occur prior to sulfasalazine administration due to the potential for falsely depressed results. Venipuncture should occur prior to sulfapyridine administration due to the potential falsely elevated results. Baseline assay values before administration of sulfasalazine and sulfapyridine therapy would not be affected. Performed By: #### 1 64944, 147157, [id number] ####[facility] [address]ks[address]fxo21[address] [place] [address] Medical Director: Fahad Cast MD GOT 18 unit/L Normal 15-[address] [facility] Comment on above: Result Comment: Sharon puncture should occur prior to sulfasalazine and/or sulfapyridine administration due to the potential for falsely depressed results. Baseline assay values before administration of sulfasalazine and sulfapyridine therapy would not be affected. Performed By: #### 1 58113, 548617, [id number] ####[facility] [address]rawyqf59165 [place] [address] Medical Director: Fahad Cast MD GPT 19 unit/L Normal 13-[address] [facility] Comment on above: Result Comment: Sharon puncture should occur prior to sulfasalazine and/or sulfapyridine administration due to the potential for falsely depressed results. Baseline assay values before administration of sulfasalazine and sulfapyridine therapy would not be affected. Performed By: #### 1 52485, 487140, [id number] ####[facility] [address]tmzfga[address]36 [place] [address] Medical Director: Fahad Cast MD Osmolality [Osmolality] 293 mOsm/kg Normal 275-[address] [facility] Comment on above: Performed By: #### 1 40473, 688510, [id number] ####[facility] [address]lb[address]38[address] [place] [address] Medical Director: Fahad Cast MD Potassium [Moles/Vol] 4.0 mmol/L Normal 3.5-5.1 [facility] Comment on above: Performed By: #### 1 94796, 910183, 4054064 ####[facility] [address]azvks[address]154 [place] [address] Medical Director: Fahad Cast MD Protein [Mass/Vol] 7.4 g/dL Normal 6.0-8.5 [facility] Comment on above: Performed By: #### 1 83255, 035603, [id number] ####[facility] [address]ruqxdt357[address] [place] [address] Medical Director: Fahad Cast MD Sodium [Moles/Vol] 142 mmol/L Normal 135-145 [facility] Comment on above: Performed By: #### 1 19296, 538225, [id number] ####[facility] [address]bxkli50452 [place] [address] Medical Director: Fahad Cast MD Urea nitrogen [Mass/Vol] 32 mg/dL High 10-[address] [facility] Comment on above: Performed By: #### 1 63217, 343976, [id number] ####[facility] [address]w98[address] [place] [address] Medical Director: Fahad Cast MD Urea nitrogen/Creatinine [Mass ratio] 26.7 mg/mg Normal [facility] Comment on above: Performed By: #### 1 31079, 014789, 3908284 ####[facility] [address]uvbrse[address] [place] [address] Medical Director: Fahad Cast MD COVID-19 by PCR SWEDon 03-10 COVID-19 by PCR SWED Positive Abnormal [facility] Comment on above: Result Comment: BLU CHRISTIE 03/10/2020 18:23:22 EST BY SHF; RBR Performed By: #### C [id number] ####[facility] [address]cvnmrho82624 [place] [address] Medical Director: Fahad Cast MD CRP QUANTon 03-10-2020 C-Reactive Protein, Quantitative 0.8 mg/dL High 0.0-0.[address] [facility] Comment on above: Performed By: #### 1 08897, [id number], [id number], [id number] #### [facility] Services [address] [place] [address] [employer] Laborer: Fahad Cast MD CT ABD PELVIS W [...] by: Oni Liu MD 03/10/2020 3:50 PM FAST [employer] Technologist: LIEN BLANCA Dictated By: ONI LIU MD Signed By: ONI LIU MD Signed Out: 03/10/20 16:50:[address] [facility] D Dimer HSon 03-10-2020 D Dimer HS 264 ng/mL FEU Normal <=[address] [facility] Comment on above: Result Comment: Excl usion of PE and DVT The D Dimer HS assay is reported in ng/ml Fibrinogen Equivalent Units (FEU). Per nuclear equipment operator?s instructions for use, a value less than 500ng/ml (FEU) may help to exclude DVT and /or PE in outpatients when the assay is used with a clinical pretest probability assessment. D-Dimer used for DIC Screens Assay results should be used with other information, including the clinical context in forming a diagnosis. Performed By: #### 1 57676, [id number], [id number], [id number] #### [facility] Services [address] [place] [address] [employer] Laborer: Fahad Cast MD ED Physician Reporton 2019 [...] Line Saline Flush: 3 mL, IV Push, [id number] Documented Medications Documented Eliquis 5 mg oral [...] Interp, Sinus rhythm with first-degree AV block, IN interval 256, QT/QTc/433, incomplete right bundle branch [...] /100WBC NA Lymph % 12.7 % NA [place] % 8.4 % NA Neutrophil % 76.4 % NA Eosin % 1.8 % NA Basos % 0.6 % NA Lymph Count 1.05 x1000 LOW [place] Count 0.70 x1000 NORMAL Neutrophil Count (ANC) [...] by: Monae Hernandez MD 03/10/2020 1:58 PM FAST [employer] LEAD Signed By: MONAE HERNANDEZ MD CT ABD [...] by: Oni Liu MD 03/10/2020 3:50 PM FAST [employer] LEAD Signed By: ONI LIU MD . Notes: [...] Course: improving. Impression and Plan Diagnosis Syncope ([id number] R55, Working, Medical) Plan Condition: Stable. Disposition: [...] accurately records my words and actions.. Normal [facility] ED Pre-Arrival Formon 2019 ED Pre-Arrival Form Pre-Arrival Summary Name: STR, Current Date: 03/10/2020 13:52:19 EST Gender: Date of : Age: Pre-Arrival Type: EMS ETA: 03/10/2020 14:15:00 EST Primary Care Physician: Presenting Problem: Pre-Arrival User: Neil Vázquez RN Referring Source: Location: [address] [facility] Emergency Department [address] [place] [address] Notes: Vital Signs: Doctor Call Back: DNR Status: Miscellaneous Issues: Normal [facility] ED Progress Noteon 0 ED Progress Note report not put in by previous rn pt here for syncopal episode after diarrhea episode pt has hx of afib. pt covid+ report called to neil silva will come get pt Normal [facility] FERRITINon 03-10-2020 Ferritin [Mass/Vol] 32 ng/mL Normal 8-252 [facility] Comment on above: Performed By: #### 1 99407, [id number], [id number], [id number] #### [facility] Services [address] [place] [id number]) [employer] Lab[employer]: Fahad Cast MD HEMOon 03-10-2020 DIFF? No Normal [facility] Comment on above: Performed By: #### 1 73290, 588382, 1141886 ####[facility] [address] [place] [id number]) [phone] Director: Fahad Cast MD Erythrocyte distribution width (RBC) [Ratio] 14.5 % Normal 11.5-14.[address] [facility] Comment on above: Performed By: #### 1 79956, 265326, 4709744 ####[facility] Dzqjsoon17933 [place], [place] [id number]) [phone] Director: Fahad Cast MD Hematocrit (Bld) [Volume fraction] 35.8 % Low 36.0-46.[address] [facility] Comment on above: Performed By: #### 1 19228, 722734, 9915326 ####[facility] [address] [place] [id number]) [phone] Director: Fahad Cast MD Hemoglobin (Bld) [Mass/Vol] 11.7 g/dL Low 12.0-16.[address] [facility] Comment on above: Performed By: #### 1 17018, 008853, 7605626 ####[facility] Hrckpxui07846 [place], [place] [id number]) [phone] Director: Fahad Cast MD MCH (RBC) [Entitic mass] 29.4 pg Normal 27.0-34.[address] [facility] Comment on above: Performed By: #### 1 38367, 405841, [id number] ####[facility] [address] [place] [id number]) [phone] Director: Fahad Cast MD MCHC (RBC) [Mass/Vol] 32.7 g/dL Normal 32.0-37.0 [facility] Comment on above: Performed By: #### 1 82753, 688907, 4405897 ####[facility] Aumatigz18472 [place] [address] Medical Director: Fahad Cast MD MCV (RBC) [Entitic vol] 89.8 fL Normal 80.0-100.0 [facility] Comment on above: Performed By: #### 1 25038, 257634, 3881437 ####[facility] Rshoimux427[address] [place] [address] Medical Director: Fahad Cast MD Nucleated RBC (Bld) [#/Vol] 0 /100WBC Normal [facility] Comment on above: Performed By: #### 1 45315, 192122, 6675306 ####[facility] Ywrsqbbv21898 [place] [address] Medical Director: Fahad Cast MD Platelet mean volume (Bld) [Entitic vol] 6.7 fL Low 7.4-10.[address] [facility] Comment on above: Performed By: #### 1 84492, 503211, 8220264 ####[facility] [address]zwlusoo23[address] [place] [address] Medical Director: Fahad Cast MD Platelets (Bld) [#/Vol] 252 x1000 Normal 150-450 [facility] Comment on above: Performed By: #### 1 23599, 787309, 5439895 ####[facility] [address]jrgdpbs67328 [place] [address] Medical Director: Fahad Cast MD RBC (Bld) [#/Vol] 3.99 x10 Low 4.20-5.40 [facility] Comment on above: Result Comment: Note : RBC morphology is normal unless otherwise stated. Evaluation performed only if differential is requested. Performed By: #### 1 93225, 230846, [id number] ####[facility] Bdgroeva08994 [place] [address] Medical Director: Fahad Cast MD WBC (Bld) [#/Vol] 8.3 10*3/uL Normal [facility] Comment on above: Performed By: #### 1 67102, 873184, 5328584 ####[facility] [address]vzwpcno99299 [place] [address] Medical Director: Fahad Cast MD WBC (Bld) [#/Vol] 8.3 x10 Normal 4.5-11.0 [facility] Comment on above: Performed By: #### 1 93059, 401830, 7484386 ####[facility] [address]piq94574 [place] [address] Medical Director: Fahad Cast MD History and [...] ppx: On Eliquis OT MESA on Normal [facility] LACTATEon 03-10-2020 Lactate [Moles/Vol] 1.8 mmol/L Normal 0.4-2.0 [facility] Comment on above: Performed By: #### 1 63162 #### [facility] [address] [place] [id number] [employer] Lab[employer]: Fahad Cast MD LIPon 03-10-2020 Lipase [Catalytic activity/Vol] 135 unit/L Normal 73-[address] [facility] Comment on above: Performed By: #### 1 40252, 893768, 100132 ####[facility] Ogaoserq05918 [place] [address] Medical Director: Fahad Cast MD MG LEVELon 03-10-2020 Magnesium [Mass/Vol] 1.9 mg/dL Normal 1.6-2.6 [facility] Comment on above: Performed By: #### 1 70172, 280141, 864108 ####[facility] [address]utzrdle[address] [place] [address] Medical Director: Fahad Cast MD PCTon 03-10-2020 Procalcitonin <0.[address] [facility] Comment on above: Result Comment: INTE [...] or septic shock. Performed By: #### 1 51177, [id number], [id number], [id number] #### [facility] Services [address] [place] [id number] [employer] Lab[employer]: Fahad Cast MD TROPONINon 03-10-2020 Troponin I.cardiac [Mass/Vol] ng/mL Normal 0.000-0.[address] [facility] Comment on above: Result Comment: This test is a quantitative determination of cardiac troponin I. High levels of serum biotin may interfere with this test. Performed By: #### 1 70447, 906464, 907136 ####[facility] [address]brzbbyu26935 [place] [address] Medical Director: Fahad Cast MD [...] by: Monae Hernandez MD 03/10/2020 1:58 PM FAST [employer]W LEAD Technologist: THANG JAMES Dictated By: MONAE HERNANDEZ MD Signed By: MONAE HERNANDEZ MD Signed Out: 03/10/20 14:58:[address] [facility] Vital Signs Date Time Vital Sign Value Performing Clinician Facility 12-29-2024 10:27-0400 Body height 165.1 cm Elliot Starks MD Work Phone: [facility] 12-29-2024 10:27-0400 Body mass index (BMI) [Ratio] 29.1 kg/m2 Elliot Starks MD Work Phone: [facility] 12-29-2024 10:27-0400 Body weight 79.4 kg Elliot Starks MD Work Phone: [facility] 12-29-2024 10:27-0400 Diastolic blood pressure 69 mm[Hg] Elliot Starks MD Work Phone: [facility] 12-29-2024 10:27-0400 Heart rate 52 /min Elliot Starks MD Work Phone: [facility] 12-29-2024 10:27-0400 Systolic blood pressure 148 mm[Hg] Elliot Starks MD Work Phone: [facility] 11-08-2024 08:34-0400 Body height 165.1 cm Radha Barron LOSS PREVENTION CONSULTANT-DIRECTOR OF PSYCHOLOGY Work Phone: [facility] 11-08-2024 08:34-0400 Body mass index (BMI) [Ratio] 29.62 kg/m2 Radha Mart LOSS PREVENTION CONSULTANT-DIRECTOR OF PSYCHOLOGY [facility] 11-08-2024 08:34-0400 Body weight 80.74 kg Radha Mart LOSS PREVENTION CONSULTANT-DIRECTOR OF PSYCHOLOGY Work Phone[facility] 11-08-2024 08:34-0400 Diastolic blood pressure 78 mm[Hg] Radha Mart LOSS PREVENTION CONSULTANT-DIRECTOR OF PSYCHOLOGY Work [facility] 11-08-2024 08:34-0400 Heart rate 55 /min Radha Mart LOSS PREVENTION CONSULTANT-DIRECTOR OF PSYCHOLOGY Work Phone: [facility] 11-08-2024 08:34-0400 SaO2% (BldA) [Mass fraction] 96 % Radha HANEY Work Phone: [facility] 11-08-2024 08:34-0400 Systolic blood pressure 130 mm[Hg] Radha Mart APRNSaigeDIRECTOR OF PSYCHOLOGY Work Phone: [facility] 07-14-2024 13:15-0400 Body height 165.1 cm Paula Barrera APRN-DIRECTOR OF PSYCHOLOGY Work Phone: [facility] 07-14-2024 13:15-0400 Body mass index (BMI) [Ratio] 27.96 kg/m2 Paula Barrera APRN-DIRECTOR OF PSYCHOLOGY Work Phone: [facility] 07-14-2024 13:15-0400 Body weight 76.2 kg Paula Barrera APRN-DIRECTOR OF PSYCHOLOGY Work Phone: [facility] 06-22-2024 12:54-0500 Blood Pressure Location Maria E Jacqui [facility] 06-22-2024 12:54-0500 Diastolic blood pressure 55 mm[Hg] Maria E Gutierreza [facility] 06-22-2024 12:54-0500 Heart rate 56 /min Maria E Gutierreza [facility] 06-22-2024 12:54-0500 Respiratory rate 18 /min Maria E Jacqui [facility] 06-22-2024 12:54-0500 Systolic blood pressure 125 mm[Hg] Maria E Gutierreza [facility] 05-09-2024 09:17-0500 Body height 165.1 cm [facility] 05-09-2024 09:17-0500 Body mass index (BMI) [Ratio] 29.1 kg/m2 [facility] 05-09-2024 09:170500 Body weight 79.37 kg [facility] 05-09-2024 09:17-0500 Diastolic blood pressure 70 mm[Hg] [facility] 05-09-2024 09:17-0500 Heart rate 58 /min [facility] 05-09-2024 09:17-0500 Systolic blood pressure 116 mm[Hg] [facility] 04-30-2024 10:29-0500 Body height 165.1 cm [facility] 04-30-2024 10:29-0500 Body mass index (BMI) [Ratio] 29.1 kg/m2 [facility] 04-30-2024 10:29-0500 Body temperature 99.2 [degF] [facility] 04-30-2024 10:29-0500 Body weight 79.43 kg [facility] 04-30-2024 10:29-0500 Diastolic blood pressure 75 mm[Hg] [facility] 04-30-2024 10:29-0500 Heart rate 58 /min [facility] 04-30-2024 10:29-0500 Respiratory rate 16 /min [facility] 04-30-2024 10:29-0500 SaO2% (BldA) [Mass fraction] 94 % [facility] 04-30-2024 10:29-0500 Systolic blood pressure 146 mm[Hg] [facility] 02-01-2024 11:130400 Body height 165.1 cm [facility] 02-01-2024 11:13-0400 Body mass index (BMI) [Ratio] 28.3 kg/m2 [facility] 02-01-2024 11:130400 Body weight 77.11 kg [facility] 02-01-2024 11:13-0400 Diastolic blood pressure 72 mm[Hg] [facility] 02-01-2024 11:13-0400 Heart rate 60 /min [facility] 02-01-2024 11:13-0400 Systolic blood pressure 134 mm[Hg] [facility] 11-26-2023 14:08-0400 Body height 165.1 cm Miko Ohara MD Work Phone: [facility] 11-26-2023 14:08-0400 Body mass index (BMI) [Ratio] 27.96 kg/m2 Miko Ohara MD Work Phone: [facility] 11-26-2023 14:08-0400 Body temperature 97 [degF] Miko Ohara MD Work Phone: [facility] 11-26-2023 14:08-0400 Body weight 76.2 kg Miko Ohara MD Work Phone: [facility] 11-26-2023 09:56-0400 Body height 165.1 cm Mainor Post MD Work Phone: [facility] 11-26-2023 09:56-0400 Body mass index (BMI) [Ratio] 28.12 kg/m2 Mainor Post MD Work Phone: [facility] 11-26-2023 09:56-0400 Body weight 76.66 kg Mainor Post MD Work Phone: [facility] 11-26-2023 09:56-0400 Diastolic blood pressure 76 mm[Hg] Mainor Post MD Work Phone: [facility] 11-26-2023 09:56-0400 Heart rate 56 /min Mainor Post MD Work Phone: [facility] 11-26-2023 09:56-0400 Systolic blood pressure 124 mm[Hg] Mainor Psot MD Work Phone: [facility] 10-28-2023 08:41-0400 Body height 165.1 cm [facility] 10-28-2023 08:41-0400 Body mass index (BMI) [Ratio] 27.9 kg/m2 [facility] 10-28-2023 08:41-0400 Body weight 76.2 kg [facility] 10-28-2023 08:41-0400 Diastolic blood pressure 68 mm[Hg] [facility] 10-28-2023 08:41-0400 Heart rate 58 /min [facility] 10-28-2023 08:41-0400 Systolic blood pressure 106 mm[Hg] [facility] 08-20-2023 14:38-0400 Body height 165.1 cm Divine Scholastica Work Phone: [facility] 08-20-2023 14:38-0400 Body mass index (BMI) [Ratio] 27.96 kg/m2 Divine [employer]ol[employer]a Work Phone: [facility] 08-20-2023 14:38-0400 Body weight 76.2 kg Divine Scholastica Work Phone: [facility] 07-23-2023 14:45-0400 Body height 165.1 cm Divine Scholastica Work Phone: [facility] 07-23-2023 14:45-0400 Body mass index (BMI) [Ratio] 27.96 kg/m2 Divine Scholastica Work Phone: [employer] [facility] 07-23-2023 14:45-0400 Body weight 76.2 kg Divine Scholastica Work Phone: [employer] [facility] 2023 15:34-0500 Body temperature 97.9 [degF] Miko Ohara MD Work Phone: [facility] 2023 15:34-0500 Diastolic blood pressure 53 mm[Hg] Miko Ohara MD Work Phone: [employer] [facility] 2023 15:34-0500 Heart rate 80 /min Miko Ohara MD Work Phone: [employer] [facility] 2023 15:34-0500 Respiratory rate 16 /min Miko Ohara MD Work Phone: [facility] 2023 15:34-0500 SaO2% (BldA) [Mass fraction] 98 % Miko Ohara MD Work Phone: [employer] [facility] 2023 15:34-0500 Systolic blood pressure 110 mm[Hg] Miko Ohara MD Work Phone: [facility] 07-07-2023 16:39-0500 Body height 165.1 cm Miko Ohara MD Work Phone: [employer] [facility] 07-07-2023 16:39-0500 Body mass index (BMI) [Ratio] 28.02 kg/m2 Miko Ohara MD Work Phone: [employer] [facility] 07-07-2023 16:39-0500 Body weight 76.39 kg Miko Ohara MD Work Phone: [employer] [facility] 06-18-2023 14:31-0500 Body height 165.1 cm Miko Ohara MD Work Phone: [employer] [facility] 06-18-2023 14:31-0500 Body mass index (BMI) [Ratio] 28.12 kg/m2 Miko Ohara MD Work Phone: [employer] [facility] 06-18-2023 14:31-0500 Body weight 76.66 kg Miko Ohara MD [facility] 06-02-2023 11:19-0500 Body height 165.1 cm Mundo Diaz MD Work Phone: [facility] 06-02-2023 11:19-0500 Body mass index (BMI) [Ratio] 28.12 kg/m2 Mundo Diaz MD Work Phone: [facility] 06-02-2023 11:19-0500 Body weight 76.66 kg Mundo Diaz MD Work Phone: [facility] 06-02-2023 11:19-0500 Diastolic blood pressure 68 mm[Hg] Mundo Diaz MD Work Phone: [facility] 06-02-2023 11:19-0500 Heart rate 62 /min Mundo Diaz MD Work Phone: [employer] 06-02-2023 11:19-0500 SaO2% (BldA) [Mass fraction] 99 % Mundo Diaz MD Work Phone: [employer] 06-02-2023 11:19-0500 Systolic blood pressure 106 mm[Hg] Mundo Diaz MD Work Phone: [employer] 05-14-2023 09:38-0500 Body height 165.1 cm Miko Ohara MD Work Phone: [employer] 05-14-2023 09:38-0500 Body mass index (BMI) [Ratio] 29.12 kg/m2 Miko Ohara MD Work Phone: [employer] 05-14-2023 09:38-0500 Body temperature 98.2 [degF] Miko Ohara MD Work Phone: [employer] 05-14-2023 09:38-0500 Body weight 79.38 kg Miko Ohara MD Work Phone: [employer] 10-30-2022 14:45-0400 Body height 165.1 cm Elliot Starks Other [employer] Other 10-30-2022 14:45-0400 Body mass index (BMI) [Ratio] 28.4 kg/m2 Elliot Starks Other [employer] Other 10-30-2022 14:45-0400 Body weight 77.43 kg Elliot Starks Other [employer] Other 10-30-2022 14:45-0400 Diastolic blood pressure 66 mm[Hg] Elliot Starks Other [employer] Other 10-30-2022 14:45-0400 Systolic blood pressure 123 mm[Hg] Elliot Starks Other [employer] Other 06-04-2022 11:30-0500 Body height 165.1 cm Elliot Starks Other [employer] Other 06-04-2022 11:30-0500 Body mass index (BMI) [Ratio] 28.29 kg/m2 Elliot Starks Other [employer] Other 06-04-2022 11:30-0500 Body weight 77.11 kg Elliot Starks Other [employer] Other 06-04-2022 11:30-0500 Diastolic blood pressure 64 mm[Hg] Elliot Starks Other [employer] Other 06-04-2022 11:30-0500 SaO2% (BldA) [Mass fraction] 99 % Elliot Starks Other [employer] Other 06-04-2022 11:30-0500 Systolic blood pressure 104 mm[Hg] Elliot Starks Other [employer] Other Encounters Encounter Date Encounter Type Care Provider Facility Start: 01-25-2025 End: 01-25-2025 ambulatory Maria E Osman [place] Start: 01-25-2025 End: 01-25-2025 ambulatory Maria E Osman Facility:[facility] Start: 01-25-2025 End: 01-25-2025 Patient encounter procedure Maria E Jacqui [facility] Start: 01-17-2025 End: 01-17-2025 Refill Jovita HANEY Work Phone: [facility] Comment on above: Med Refill Start: 12-29-2024 End: 12-29-2024 ambulatory Elliot Starks MD Work Phone: [facility] Work Phone: Start: 12-29-2024 End: 12-29-2024 Patient encounter procedure Elliot Starks MD -[facility] Work Phone: Start: 12-27-2024 End: 12-27-2024 Bamboo flowsheet Radha Espinal MD Work Phone: [facility] Start: 12-27-2024 End: 12-27-2024 Bamboo flowsheet Radha Espinal MD Work Phone: [facility] Start: 12-27-2024 End: 12-27-2024 Patient encounter procedure Radha Espinal MD Work Phone: [facility] Comment on above: Seborrheic keratosis , inflamed (Primary Dx); Inflamed skin tag; Milia Med Refill Start: 12-27-2024 End: 12-27-2024 ambulatory RADHA ESPINAL Not Available Start: 12-19-2024 Non-patient / Non-visit Ayanna Leslie CMA -[facility] Work Phone: Start: 12-19-2024 Non-patient / Non-visit Govind Case [employer] [facility] Work Phone: Start: 12-18-2024 Non-patient / Non-visit Govind Case [facility] Work Phone: Start: 12-18-2024 End: 12-19-2024 Emergency department patient visit ELLIOT STARKS Facility:[facility] Start: 12-05-2024 End: 12-05-2024 ambulatory Daisy Liz MD Facility:[facility] Start: 11-29-2024 End: 11-29-2024 ambulatory Elliot Starks MD Work Phone: [facility] Work Phone: Start: 11-29-2024 End: 11-29-2024 Patient encounter procedure Elliot Starks MD -[facility] Work Phone: Start: 11-24-2024 End: 11-29-2024 Refill Jack Branden Smith LOSS PREVENTION CONSULTANT-DIRECTOR OF PSYCHOLOGY Work Phone: [facility] Comment on above: Med Refill Start: 11-09-2024 End: 01-09-2025 Follow-up encounter Alyce Deras RN [facility] Comment on above: CBC Start: 11-09-2024 [facility] Start: 11-08-2024 End: 01-08-2025 Follow-up encounter [facility] Comment on above: Comprehensive metabo lic panel, Magnesium Start: 11-08-[address] [facility] Start: 11-08-2024 End: 11-08-2024 Office outpatient visit 15 minutes Radha Mart LOSS PREVENTION CONSULTANT-DIRECTOR OF PSYCHOLOGY Work Phone: [facility] Comment on above: Paroxysmal atrial fi brillation (CMS-HCC) (Primary Dx); Primary hypertension; Palpitations Start: 11-08-2024 End: 11-16-2024 ambulatory [facility] Comment on above: Med Refill Start: 11-01-2024 End: 11-03-2024 Refill Divine Kaur LOSS PREVENTION CONSULTANT-DIRECTOR OF PSYCHOLOGY Work Phone: [facility] Comment on above: Med Refill Start: 10-31-2024 End: 10-31-2024 ambulatory Daisy Liz MD Facility:[facility] Start: 10-26-2024 End: 10-26-2024 ambulatory Maria E Osman Facility:[facility] Start: 10-26-2024 End: 10-26-2024 Patient encounter procedure Maria E Osman [facility] Start: 09-19-2024 End: 09-19-2024 ambulatory Alfreda Miller [facility] Start: 09-19-2024 End: 09-19-2024 Patient encounter procedure Alfreda Miller [facility] Start: 09-12-2024 End: 09-12-2024 ambulatory Jean Pierre MARTE Facility[facility] Start: 09-12-2024 End: 09-12-2024 ambulatory Alfreda Miller Facility:[facility] Start: 09-12-2024 End: 09-12-2024 Patient encounter procedure Alfreda Miller [facility] Start: 08-22-2024 End: 08-22-2024 ambulatory Daisy Liz MD Facility:[facility] Start: 08-07-2024 End: 08-10-2024 Refill Vinicio Causey PA-C Work Phone: [facility] Comment on above: Med Refill Start: 08-03-2024 End: 08-04-2024 Refill Rosangela Montague LOSS PREVENTION CONSULTANT-DIRECTOR OF PSYCHOLOGY Work Phone: [facility] Comment on above: Med Refill Start: 07-27-2024 End: 07-28-2024 Refill Sander Pollack RN [facility] Comment on above: Med Refill Start: 07-20-2024 End: 07-27-2024 Refill Miko Vasquez LOSS PREVENTION CONSULTANT-DIRECTOR OF PSYCHOLOGY Work Phone: [facility] Comment on above: Med Refill Start: 07-20-2024 ambulatory Alfreda Palacios Paul Facility:[facility] Start: 07-14-2024 End: 07-14-2024 Postop follow up visit related to original px Paula Barrera LOSS PREVENTION CONSULTANT-DIRECTOR OF PSYCHOLOGY Work Phone: [facility] Comment on above: Hx of total hip arth roplasty, right (Primary Dx) Start: 07-14-2024 End: 07-14-2024 Subsequent hospital visit by physician Paula Barrera LOSS PREVENTION CONSULTANT-DIRECTOR OF PSYCHOLOGY Work Phone: [facility] Start: 07-14-2024 ambulatory ELLIOT STARKS [facility] Start: 06-30-2024 End: 07-06-2024 Refill Michael Castanon LOSS PREVENTION CONSULTANT-DIRECTOR OF PSYCHOLOGY Work Phone: [facility] Comment on above: Med Refill Start: 06-22-2024 End: 07-26-2024 Pre-admission assessment Alfreda Miller [facility] Start: 06-22-2024 End: 06-22-2024 ambulatory Maria E Gutierreza [facility] Start: 06-22-2024 End: 06-22-2024 Lab Drop off Maria E Osman [facility] Start: 06-22-2024 End: 06-22-2024 ambulatory Maria E Osman Facility:[facility] Start: 06-22-2024 End: 06-22-2024 Patient encounter procedure Maria E Osman [facility] Start: 06-21-2024 End: 06-21-2024 ambulatory [facility] Work Phone: Start: 06-21-2024 End: 06-21-2024 Patient encounter procedure [facility] Work Phone: Start: 05-11-2024 Non-patient / Non-visit [facility] Work Phone: Start: 05-09-2024 End: 05-09-2024 ambulatory [facility] Work Phone: Start: 05-09-2024 End: 05-09-2024 Patient encounter procedure [facility] Work Phone: Start: 04-30-2024 End: 04-30-2024 Patient encounter procedure [facility] Work Phone: Start: 04-04-2024 End: 04-04-2024 ambulatory Daisy Liz MD Facility:[facility] Start: 02-01-2024 End: 02-01-2024 ambulatory [facility] Work Phone: Start: 02-01-2024 End: 02-01-2024 Patient encounter procedure [facility] Work Phone: Start: 01-02-2024 End: 01-05-2024 Refill Rosangela HANEY Work Phone: [facility] Comment on above: Med Refill Start: 11-26-2023 End: 11-26-2023 Subsequent hospital visit by physician Miko Ohara MD Work Phone: [facility] Start: 11-26-2023 ambulatory MIKO OHARA [facility] Start: 11-26-2023 End: 11-26-2023 Office outpatient visit 15 minutes Miko Ohara MD Work Phone: [facility] Comment on above: Hx of total hip arth roplasty, right (Primary Dx) Paroxysmal atrial fi brillation (CMS-HCC) (Primary Dx); Unstable angina (CMS-HCC); SOB (shortness of breath) Start: 11-25-2023 End: 11-25-2023 Telephone encounter Medina Jaramillo MA [facility] Start: 10-28-2023 End: 10-28-2023 ambulatory [facility] Work Phone: Start: 10-28-2023 End: 10-28-2023 Patient encounter procedure [facility] Work Phone: Start: 10-19-2023 End: 10-26-2023 Refill Mike Craft MD Work Phone: [facility] Comment on above: Med Refill Start: 09-17-2023 Telephone encounter Matt Duron Hematology/Oncology Comment on above: Yearly Exam With Shane rodriguez Start: 08-20-2023 End: 08-20-2023 Subsequent hospital visit by physician Divine Dougherty Work Phone: [facility] Start: 08-20-2023 ambulatory DIVINEELI DOUGHERTY [facility] Start: 08-20-2023 End: 08-20-2023 Postop follow up visit related to original px Divine Dougherty Work Phone: [facility] Comment on above: Right hip pain (Prim hayden Dx) Start: 08-20-2023 ambulatory [facility] Start: 08-10-2023 End: 08-13-2023 Refill Divine Kaur APRN-DIRECTOR OF PSYCHOLOGY Work Phone: [facility] Comment on above: Med Refill Start: 07-23-2023 End: 07-23-2023 Postop follow up visit related to original px Divine Deric Dougherty Work Phone: [facility] Comment on above: Tear of gluteus mini mus tendon, right, initial encounter (Primary Dx) Start: 07-23-2023 End: 07-23-2023 Subsequent hospital visit by physician Divine Dougherty Work Phone: [facility] Start: 07-23-2023 ambulatory DIVINE DOUGHERTY [facility] Start: 07-17-2023 Refill Mike galloway MD Work Phone: [facility] Comment on above: Med Refill Start: 07-15-2023 Telephone encounter Ashia Goncalves RN [facility] Start: 07-07-2023 End: 2023 Evaluation and management of inpatient Miko Ohara MD Work Phone: [facility] Comment on above: Status post revision of total hip Start: 07-07-2023 End: 2023 Patient encounter status Miko Ohara MD Work Phone: [facility] Start: 07-01-2023 Patient encounter status [facility] Start: 07-01-2023 Preprocedural examination done Elliot Starks MD Work Phone: [facility] Start: 06-19-2023 Telephone encounter Jacqueline Sparrow RN [facility] Comment on above: Pre op clearance Start: 06-18-2023 End: 06-18-2023 Office outpatient visit 40 minutes Miko Ohara MD Work Phone: [facility] Comment on above: Right hip pain (Prim hayden Dx) Start: 06-02-2023 End: 06-02-2023 Office outpatient visit 25 minutes Mundo Diaz MD Work Phone: [facility] Comment on above: Paroxysmal atrial fi brillation (CMS-HCC) (Primary Dx); Primary hypertension; Chronic coronary artery disease Start: 05-14-2023 End: 05-14-2023 Office outpatient new 30 minutes Miko Ohara MD Work Phone: [facility] Comment on above: Pain in prosthetic j oint, initial encounter (Primary Dx); Primary osteoarthritis of right hip Start: 05-14-2023 End: 05-14-2023 Subsequent hospital visit by physician Miko Ohara MD Work Phone: [facility] Start: 03-30-2023 (Televisit) Televisit Elliot Dela Cruz [facility] Start: 03-30-2023 End: 03-30-2023 ambulatory Elliot Starks Other [facility] Other Start: 02-11-2023 End: 02-11-2023 Patient encounter procedure Alfreda Miller [facility] Start: 12-29-2022 End: 11-08-2024 Preoperative state Mundo Diaz MD Work Phone: [employer] Start: 11-17-2022 End: 11-17-2022 ambulatory Elliot Starks Other [facility] Other Start: 11-17-2022 Telephone encounter Elliot Starks [facility] Start: 10-30-2022 End: 10-30-2022 ambulatory Elliot Starks Other [facility] Other Start: 10-30-2022 Office outpatient vi sit 15 minutes Elliot Starks [facility] Start: 10-29-2022 End: 10-29-2022 ambulatory Elliot Starks Other [facility] Other Start: 10-29-2022 Telephone encounter Elliot Raudel [facility] Start: 10-27-2022 Nursing evaluation o f patient and report Elliot Starks [facility] Start: 10-27-2022 End: 10-27-2022 ambulatory Elliot Starks [facility] Other Start: 10-27-2022 End: 10-27-2022 Departed Referred MD Elliot Starks Work Phone: [facility] [place] Work Phone: Start: 09-11-2022 Telephone encounter Matt Duron Hematology/Oncology Comment on above: Orders Start: 08-11-2022 End: 08-11-2022 ambulatory Elliot Starks Other [facility] Other Start: 08-11-2022 Nursing evaluation o f patient and report Elliot Starks [facility] Start: 07-17-2022 (Televisit) Televisit Elliot Dela Cruz [facility] Start: 07-17-2022 End: 07-17-2022 ambulatory Elliot Starks Other [facility] Other Start: 06-23-2022 End: 06-23-2022 ambulatory Elliot Starks Other [facility] Other Start: 06-23-2022 Nursing evaluation o f patient and report Elliot Starks [facility] Start: 06-09-2022 End: 06-09-[address] ELLIOT STARKS Facility:[facility] Start: 06-06-2022 End: 06-06-2022 ambulatory Elliot Starks Other [facility] Other Start: 06-06-2022 Telephone encounter Elliot Starks [facility] Start: 06-04-2022 End: 06-04-2022 ambulatory Elliot Starks Other [facility] Other Start: 06-04-2022 Office outpatient vi sit 25 minutes Elliot Starks [facility] Start: 05-21-2022 End: 05-21-2022 ambulatory Elliot Starks Other [facility] Other Start: 05-21-2022 Telephone encounter Elliot Starks [facility] Start: 04-26-2022 End: 04-26-[address] ELLIOT STARKS Facility:[facility] Start: 04-14-2022 End: 04-14-[address] ELLIOT STARKS Facility:[facility] Start: 12-18-2021 End: 12-18-2021 ambulatory [facility] Facility:[facility] Start: 10-03-2021 Telephone encounter Andrew [...] w/le ast 12 lds w/i&r Radha Mart LOSS PREVENTION CONSULTANT-DIRECTOR OF PSYCHOLOGY Work Phone: Start: 11-08-2024 Follow-up visit Follow-up RADHA MART Start: 2023 Basic metabolic pane l calcium total Chance Mahoney MD Work Phone: Start: 2023 Complete blood count with white cell differential, automated Paula Vasquezey LOSS PREVENTION CONSULTANT-DIRECTOR OF PSYCHOLOGY Work Phone: Start: 07-07-2023 Cultyp nuc acid amp prb cult/isolate ea danilo Chance Mahoney MD Work Phone: Start: 07-07-2023 Radiologic examinati on pelvis 1/2 views Paula Vasquezey LOSS PREVENTION CONSULTANT-DIRECTOR OF PSYCHOLOGY Work Phone: Start: 07-07-2023 Cell count miscellan [...] Lue Lumpectomy of left breast Ka gonsalo Moraese Rotator cuff includi ng muscles and tendons (body structure) Alfreda Lue Screening for malign ant neoplasm of breast Elliot Starks Other Total abdominal hysterectomy Alfreda Miller Plan of Treatment Date Care Activity Detail Author Start: 11-08-2025 Tobacco Screening Tobacco Screening [facility] Start: 03-14-2025 ambulatory Ambulatory Facility:[facility] Start: 01-02-2025 COVID-19 Vaccine ( season) COVID-19 Vaccine ( season) [facility] Start: 01-02-2025 Influenza vaccination [facility] Start: 12-27-2024 End: 12-27-2024 Patient encounter procedure 12/27/2024 10:00 AM EDT Office Visit [facility] [address] [place] [address] Radha Espinal MD [address] [place], [place] [id number] Arrived [facility] Comment on above: Arrived Start: 11-25-2024 Adult BMI Screening Adult BMI Screen ing [facility] Start: 11-25-2024 Tobacco Screening Tobacco Screening [facility] Start: 11-08-2024 End: 11-08-2024 Patient encounter procedure 11/08/2024 9:00 AM EDT Office Visit [facility] [address] [place] [address] Radha Mart, LOSS PREVENTION CONSULTANT-DIRECTOR OF PSYCHOLOGY [address] [place] [address] [facility] Start: 09-29-2024 Adult BMI Screening Adult BMI Screen ing [facility] Start: 09-29-2024 Screening for malign ant neoplasm of breast MAMMOGRAM SCREENING DISCUSSION [facility] Start: 08-11-2024 Adult BMI Screening Adult BMI Screen ing [facility] Start: 08-11-2024 End: 08-10-2025 CBC panel - Blood by Automated count CBC Lab Routine Paroxysmal atrial fibrillation ([facility]-HCC) Benign hypertension Expected: 08/11/2024 (Approximate), Expires: 08/10/2025 [facility] [employer] Comment on above: Expected: 08/11/2024 (Approximate), Expires: 08/10/2025 Start: 08-11-2024 End: 08-10-2025 Comprehensive metabolic 2000 panel - Serum or Plasma CMP Lab Routine Paroxysmal atrial fibrillation ([facility]-HCC) Benign hypertension Expected: 08/11/2024 (Approximate), Expires: 08/10/2025 [employer] Work Phone: Comment on above: Expected: 08/11/2024 (Approximate), Expires: 08/10/2025 Start: 08-11-2024 End: 08-10-2025 Magnesium [Mass/volume] in Serum or Plasma Magnesium Lab Routine Paroxysmal atrial fibrillation ([facility]-HCC) Benign hypertension Expected: 08/11/2024 (Approximate), Expires: 08/10/2025 [facility] Comment on above: Expected: 08/11/2024 (Approximate), Expires: 08/10/2025 Start: 08-11-2024 Tobacco Screening Tobacco Screening [facility] Start: 08-08-2024 COVID-19 Vaccine () COVID-19 Vaccine () [facility] Start: 07-14-2024 Tobacco Screening Tobacco Screening [facility] Start: 07-14-2024 End: 07-14-2024 Patient encounter procedure 07/14/2024 11:20 AM EDT Office Visit [facility] [address] [place] [address] Miko Ohara MD [address] [place] [address] [facility] Start: 07-07-2024 Potassium [Moles/vol ume] in Serum or Plasma POTASSIUM [facility] Start: 06-02-2024 Adult BMI Screening Adult BMI Screen ing [facility] Start: 06-02-2024 Tobacco Screening Tobacco Screening [facility] Start: 02-16-2024 End: 02-16-2024 Patient encounter procedure 02/16/2024 11:00 AM EDT [facility] [address] [place] [phone] Sheridan Kaye MD [address] [place] [address] [facility] Start: 01-03-2024 COVID-19 Vaccine ( season) COVID-19 Vaccine ( season) [facility] Start: 01-03-2024 COVID-19 Vaccine ( season) COVID-19 Vaccine ( season) [facility] Start: 01-03-2024 Influenza vaccination [facility] Start: 11-26-2023 End: 11-26-2023 Patient encounter procedure [facility] Start: 10-09-2023 DIABETES SCREEN DIABETES SCREEN [facility] Start: 10-09-2023 Diabetes Screening Diabetes Screenin g [facility] Start: 08-20-2023 End: 08-20-2023 Patient encounter procedure 08/20/2023 2:30 PM EDT Office Visit [facility] [address] [place] [id number] Divine Dougherty [address] [place] [address] [facility] Start: 08-12-2023 End: 08-12-2023 Patient encounter procedure 08/12/2023 8:00 AM EDT Office Visit [facility] [address] [facility] [address] [place] [address] Miko Vasquez, LOSS PREVENTION CONSULTANT-DIRECTOR OF PSYCHOLOGY [address] [place] [address] [facility] Start: 07-23-2023 End: 07-23-2023 Patient encounter procedure 07/23/2023 2:30 PM EDT Office Visit [facility] [address] [place] [address] Divine Dougherty [address] [place] [address] [facility] Start: 07-07-2023 End: 07-07-2023 Evaluation and management of inpatient [facility] Comment on above: [...] 06/25/2023 10:00 AM EST Pre-Operative Nurse Assessment [facility] Pre Admission [address] [place] [address] Pre-op testing (Primary Dx); Essential (primary) hypertension; Abnormal finding of blood chemistry, unspecified; Abnormal coagulation profile [facility] Comment on above: Pre-op testing (Prim hayden Dx); Essential (primary) hypertension; Abnormal finding of blood chemistry, unspecified; Abnormal coagulation profile Start: 06-13-2023 COVID-19 Vaccine ( season) COVID-19 Vaccine () [facility] Start: 05-28-2023 End: 05-28-2023 Patient encounter procedure 05/28/2023 11:00 AM EST Office Visit [facility] [address] [place] [address] Peter Gardiner DO [address] [place] [address] [facility] Start: 05-14-2023 End: 05-14-2024 MR Hip - right WO contrast MRI HIP RIGHT WITHOUT CONTRAST Imaging Routine Pain in prosthetic joint, initial encounter Expected: 05/14/2023, Expires: 05/14/[address] [facility] Comment on above: Expected: 05/14/2023 , Expires: 05/14/2024 Start: 05-04-2023 Advance Directive Discussion Advance Directive Discussion [facility] Start: 05-04-2023 Behavioral Health Screening Behavioral Health Screening [facility] Start: 01-02-2023 Covid-19 Vaccine ( season) Covid-19 Vaccine ( season) [facility] Start: 01-02-2023 COVID-19 VACCINE ( season) COVID-19 VACCINE ( season) [facility] Start: 01-02-2023 Influenza vaccination INFLUENZA (Sea son Ended) [facility] Start: 10-27-2022 Bacteria identified in Urine by Culture [facility] Start: 05-04-2022 ADVANCE DIRECTIVE DISCUSSION ADVANCE DIRECTIVE DISCUSSION [facility] Start: 05-04-2022 DEPRESSION ASSESSMENT DEPRESSION ASS ESSMENT [facility] Start: 04-08-2022 Screening for malign ant neoplasm of colon Colonoscopy [facility] Start: 01-02-2022 Influenza vaccination INFLUENZA (Sea son Ended) [facility] Start: 10-07-2021 End: 12-07-2021 Cancer Ag 27-29 [Units/volume] in Serum or Plasma CA 27.29 BLOOD Lab Routine Malignant neoplasm of upper-outer quadrant of left breast in female, estrogen receptor positive (HCC) Expected: 10/07/2021, Expires: 12/07/2021 [facility] Work Phone: Comment on above: Expected: 10/07/2021 , Expires: 12/07/2021 Start: 10-07-2021 End: 12-07-2021 CBC W Auto Differential panel - Blood CBC + DIFF Lab Routine Malignant neoplasm of upper-outer quadrant of left breast in female, estrogen receptor positive (HCC) Expected: 10/07/2021, Expires: 12/07/2021 [facility] Work Phone: Comment on above: Expected: 10/07/2021 , Expires: 12/07/2021 Start: 10-07-2021 End: 12-07-2021 Comprehensive metabolic 2000 panel - Serum or Plasma COMP METABOLIC PANEL Lab Routine Malignant neoplasm of upper-outer quadrant of left breast in female, estrogen receptor positive (HCC) Expected: 10/07/2021, Expires: 12/07/2021 [facility] Work Phone: Comment on above: Expected: 10/07/2021 , Expires: 12/07/2021 Start: 09-25-[address] [facility] Start: 05-04-2021 ADVANCE DIRECTIVE DISCUSSION ADVANCE DIRECTIVE DISCUSSION [facility] Start: 11-17-2020 COVID-19 VACCINE (3 - Booster for Pfizer series) COVID-19 VACCINE (3 - Booster for Pfizer series) [facility] Start: 10-06-2020 Adult depression screening assessment DEPRESSION SCREENING [facility] Start: 08-15-2020 COVID-19 VACCINE (3 - Booster for Pfizer series) COVID-19 VACCINE (3 - Booster for Pfizer series) [facility] Start: 01-05-2019 Pneumococcal Vaccine : 65+ (2 of 2 - PCV) Pneumococcal Vaccine: 65+ (2 of 2 - PCV) [facility] Start: 01-05-2019 PNEUMOCOCCAL: 65+ (2 - PCV) PNEUMOCOCCAL: 65+ (2 - PCV) [facility] Start: 07-07-2012 [address] D[address] BONE DENSITY [facility] Start: 07-07-2012 Fall Risk Screening Fall Risk Screen ing [facility] Start: 07-07-2012 Screening for osteoporosis Bone Density Screening [facility] Start: 2007 RSV Vaccine (1 - 1-d ose 60+ series) RSV Vaccine (1 - 1-dose 60+ series) [facility] Start: 07-07-1997 Administration of varicella zoster vaccine Zoster (Shingles) Vaccine (1 of 2) [facility] Start: 07-07-1997 SHINGRIX VACCINE (1 of 2) SHINGRIX VACCINE (1 of 2) [facility] Start: 07-07-1997 Zoster vaccine hzv l david for subcutaneous use ZOSTER (SHINGLES) VACCINE (1 of 2) [facility] Start: 07-07-1992 COLOGUARD (FIT-DNA) COLOGUARD (FIT-D NA) [facility] Start: 07-07-[address] [facility] Start: 07-07-1992 COLORECTAL CANCER SCREENING COLORECTAL CANCER SCREENING [facility] Start: 07-07-[address] COLONOGRAPHY [facility] Start: 07-07-1992 FECAL OCCULT BLOOD FECAL OCCULT BLOO D [facility] Start: 07-07-1992 LIPID SCREEN LIPID SCREEN [facility] Start: 07-07-1992 Screening for malign ant neoplasm of colon COLORECTAL CANCER SCREENING DISCUSSION [facility] Start: 07-07-1992 SIGMOIDOSCOPY SIGMOIDOSCOPY [facility] Start: 1987 Lipid panel LIPID SCREENING [facility] Start: 1987 Screening for malign ant neoplasm of breast MAMMOGRAM SCREENING DISCUSSION [facility] Start: 07-07-1968 Screening for malign ant neoplasm of cervix CERVICAL CANCER SCREENING DISCUSSION [facility] Start: 07-07-1966 DTaP,Tdap and Td Vaccines (1 - Tdap) DTaP,Tdap and Td Vaccines (1 - Tdap) [facility] Start: 07-07-1966 Third diphtheria, tetanus and acellular pertussis (DTaP) vaccination TDAP (ADULT) [facility] Start: 07-07-[address] [facility] Start: 07-07-1965 Adult BMI Follow Up Plan Adult BMI F ollow Up Plan [facility] Start: 07-07-1965 HEPATITIS C SCREENING HEPATITIS C SC REENING [facility] Start: 1959 Depression Screening Depression Scre ening [facility] Start: 07-07-1953 PNEUMOCOCCAL: 65+ (1 - PCV) PNEUMOCOCCAL: 65+ (1 - PCV) [facility] Start: 1947 Hepatitis C screening HEPATITI S C VIRUS SCREENING [facility] Start: 1947 Medicare Annual Well ness Visit Medicare Annual Wellness Visit [facility] Start: 1947 Potassium [Moles/vol ume] in Serum or Plasma POTASSIUM [facility] Start: 1947 Screening for osteoporosis DEXA SCAN DISCUSSION [facility] Start: 1947 Tetanus vaccination TETANUS [facility] [facility] [employer] [facility] Comment on above: Release Upon Orderin g for 1 Occurrences starting 07/07/2023 Bacterial culture an d sensitivity CULTURE WOUND Microbiology Routine 07/07/2023 2:27 PM EST [facility] 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 Comment on above: Release Upon Orderin g for 1 Occurrences starting 07/07/2023 End: 08-04-2025 Comprehensive metabolic 2000 panel - Serum or Plasma Comprehensive metabolic panel Lab Routine Primary hypertension Coronary artery disease involving three affiliated coronary artery of three affiliated heart with unstable angina pectoris ([facility]) 1 Occurrences starting 08/04/2024 until 08/04/2025 [employer] Work Phone: Comment on above: 1 Occurrences starti ng 08/04/2024 until 08/04/2025 End: 10-16-2024 DBT Breast - bilateral screening SHANE SCREENING [facility] Radiology Routine Encounter for screening mammogram for malignant neoplasm of breast 1 Occurrences starting 09/17/2023 until 10/16/2024 [facility] Work Phone: Comment on above: 1 Occurrences starti ng 09/17/2023 until 10/16/2024 End: 07-07-2023 Fungus identified in Unspecified specimen by Culture [facility] Comment on above: Release Upon Orderin g for 1 Occurrences starting 07/07/2023 One Time for 1 Occur rences starting 07/07/2023 until 07/07/2023 End: 08-04-2025 Magnesium [Mass/volume] in Serum or Plasma Magnesium Lab Routine Primary hypertension Coronary artery disease involving three affiliated coronary artery of three affiliated heart with unstable angina pectoris ([facility]) 1 Occurrences starting 08/04/2024 until 08/04/2025 [facility] Comment on above: 1 Occurrences starti ng 08/04/2024 until 08/04/2025 End: 10-26-2022 SHANE SCREENING [facility] SCREENING [facility] Radiology Routine Encounter for screening mammogram for malignant neoplasm of breast 1 Occurrences starting 09/26/2021 until 10/26/2022 [facility] Work Phone: Comment on above: 1 Occurrences starti ng 09/26/2021 until 10/26/2022 End: 10-11-2023 SHANE SCREENING [facility]ANE SCREENING [facility] Radiology Routine Encounter for screening mammogram for malignant neoplasm of breast 1 Occurrences starting 09/11/2022 until 10/11/2023 [facility] Work Phone: Comment on above: 1 Occurrences starti ng 09/11/2022 until 10/11/2023 End: 07-07-2023 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 [facility] Comment on above: Release Upon Orderin g for 1 Occurrences starting 07/07/2023 One Time for 1 Occur rences starting 07/07/2023 until 07/07/2023 XR Pelvis and Hip - right Views XR HIP WITH PELVIS RIGHT Imaging Routine Primary osteoarthritis of right hip 05/14/2023 9:20 AM [facility] [employer] Work Phone: XR Pelvis and Hip - right Views XR HIP WITH PELVIS RIGHT Imaging Routine Tear of gluteus minimus tendon, right, initial encounter 07/23/2023 2:22 PM ED [facility] XR Pelvis and Hip - right Views XR HIP WITH PELVIS RIGHT Imaging Routine Right hip pain 08/20/2023 3:17 PM EDT [facility] XR Pelvis and Hip - right Views XR HIP WITH PELVIS RIGHT Imaging Routine Hx of total hip arthroplasty, right 11/26/2023 1:53 PM EDT [facility] XR Pelvis and Hip - right Views XR HIP WITH PELVIS RIGHT Imaging Routine Hx of total hip arthroplasty, right 07/14/2024 1:07 PM EDT [facility] Immunizations Immunization Date Immunization Notes Care Provider Pablo wheat 02-08-2024 influenza virus vaccine, unspecified formulation Maria E Osman [facility] 02-10-2023 influenza virus vaccine, unspecified formulation Alfreda Lumalini [facility] 02-01-2022 influenza virus vaccine, unspecified formulation Alfreda Lue [facility] 08-13-2021 SARS-CoV-2 mRNA (udkxheagczl-rjte-dogvs se) vaccine Alfreda Lue [facility] 01-29-2021 SARS-CoV-2 (COVID-19 ) mRNA BNT-162b2 vax Alfreda Lue [facility] Comment on above: Result Comment: 2022: [id number] 06-20-2020 COVID-19 vaccine, ag e 12+ yr (PFIZER-BIONTECH - PURPLE TOP) Mikaela Thompson RN Work Phone: [facility] 05-28-2020 SARS-CoV-2 (COVID-19 ) mRNA BNT-162b2 vax Alfreda Lue [facility] 05-18-2020 COVID-19 vaccine, ag e 12+ yr (PFIZER-BIONTECH - PURPLE TOP) Mikaela Thompson RN Work Phone: [facility] 01-27-2020 influenza virus vaccine, split virus (incl. purified surface antigen) Elliot Starks Other [employer] Other 01-27-2020 influenza virus vaccine, unspecified formulation Alfreda Lue [facility] 01-20-2019 influenza virus vaccine, unspecified formulation Alfreda Lue [facility] 01-20-2019 influenza, high dose seasonal, preservative-free Mikaela Thompson RN Work Phone: [facility] 03-09-2018 influenza virus vaccine, unspecified formulation Alfreda Lue [facility] 01-05-2018 influenza virus vaccine, split virus (incl. purified surface antigen) Elliot Starks Other [employer] Other 01-05-2018 influenza virus vaccine, unspecified formulation Alfreda Lue [facility] 01-05-2018 influenza, high dose seasonal, preservative-free Mikaela Thompson RN Work Phone: [facility] 01-05-2018 pneumococcal polysaccharide vaccine, 23 valent Mikaela Thompson RN Work Phone: [facility] 02-25-2017 influenza virus vaccine, unspecified formulation Alfreda Lue [facility] 02-17-2017 pneumococcal polysaccharide vaccine, 23 valent Alfreda Lue [facility] 02-05-2017 influenza virus vaccine, split virus (incl. purified surface antigen) Elliot Starks Other [employer] Other 02-05-2017 influenza virus vaccine, unspecified formulation Alfreda Lue [facility] 02-05-2017 pneumococcal conjuga te vaccine, 13 valent Alfreda Lue [facility] 02-01-2002 pneumococcal polysaccharide vaccine, 23 valent Elliot Raudel Other [facility] Payers Date Payer Category Payer Private Health Insurance [id number] 2023 Medicare (Managed Care) MEDICARE AET[employer] PPO [id number] 2022 Self-pay 2021 Medicaid [id number] 2021 Medicare HMO AET[employer] MEDICARE [id number] 2014 Medicare AETNA MEDICARE A ETNA MEDICARE PPO [id number] 2014-Present [phone] [address] [place] [address] [facility] [id number] 2014 Medicare [id number]. [id number] 1959 Medicare [id number] 1947 Unknown [id number] 2.16.840.1.972325.3.579.2. 593 1947 Unknown [id number] 2.16.840.1.723255.3.579.2. 593 1947 Unknown [id number] 2.16.840.1.544713.3.579.2. 593 1947 Unknown [id number] 2.16.840.1.292423.3.579.2. 718 1947 Unknown [id number] 2.16.840.1.416082.3.579.2. 727 1947 Unknown [id number] 2.16.840.1.592441.3.579.2. 727 1947 Unknown [id number] 2.16.840.1.023012.3.579.2. 727 1947 Unknown [id number] 2.16.840.1.196513.3.579.2. 983 1947 Unknown [id number] 2.16840.1.751707.3.579.2. 983 1947 Unknown [id number] 2.16.840.1.552056.3.579.2. 983 1947 Unknown [id number] 2.16.840.1.727595.3.579.2. 983 1947 Unknown [id number] 2.16.840.1.471864.3.579.2. 983 1947 Unknown [id number] 2.16.840.1.196173.3.579.2. 983 1947 Unknown [id number] 2.16.840.1.387261.3.579.2. 983 1947 Unknown [id number] 2.16.840.1.008317.3.579.2. 983 1947 Unknown [id number] 2.16.840.1.126641.3.579.2. 727 1947 Unknown [id number] 2.16840.1.421448.3.579.2. 727 1947 Unknown [id number] 2.16.840.1.083876.3.579.2. 1286 1947 Unknown [id number] 2.16840.1.117669.3.579.2. 128 1947 Unknown [id number] 2.840.1.446495.3.579.2. 128 1947 Unknown [id number] 2.840.1.196601.3.579.2. 196 1947 Unknown [id number] 2.840.1.659723.3.579.2. 196 1947 Unknown [id number] 2.16840.1.227652.3.579.2. 196 1947 Unknown [id number] 2.840.1.712328.3.579.2. 196 1947 Unknown [id number] 2.840.1.212972.3.579.2. 1259 1947 Unknown [id number] 2.16.840.1.395592.3.579.2. 727 1947 Unknown [id number] 2.16.840.1.085196.3.579.2. 727 1947 Unknown [id number] 2.16.840.1.681353.3.579.2. 727 1947 Unknown [id number] 2.16.840.1.584826.3.579.2. 727 1947 Unknown [id number] 2.16.840.1.608828.3.579.2. 727 Private Health Insurance Aetna [facility] Deric [id number] Unknown Unknown [id number] 2.16.840.1.646465.3.579.2. 531 Social History Date Type Detail Facility Start: 12-03-2015 End: 01-25-2025 Tobacco smoking status NHIS Ex-smoker [facility] End: 12-05-1990 History of tobacco use Current smoker [facility] Start: 12-03-2015 End: 05-15-2020 Cigarettes smoked current (pack per day) - Reported [address] [facility] Start: 12-03-2015 End: 11-26-2023 Tobacco use and exposure Smokeless tobacco non-user [facility] Start: 10-08-2020 End: 11-08-2024 Alcohol intake Current drinker of alcohol (finding) [facility] Start: 1945 Sex Assigned At Not on file [facility] Start: 05-15-2020 End: 05-14-2023 Sex Assigned At [facility] End: 12-05-1990 History of tobacco use Cigarette Smoker [facility] Start: 1945 Sex Assigned At Female F [facility] Tobacco smoking status Never [facility] Start: 05-14-2023 Tobacco smoking stat [facility] Never smoked tobacco [facility] Has the [employer], [employer], or [employer] threatened to shut off services in your home in past 12Mo No [employer] (I/We) worried whemiky er (my/our) food would run out before (I/we) got money to buy more. Never true [employer] [facility] [facility] Start: 03-19-2017 End: 06-19-2023 Alcohol Comment social [facility] Start: 07-22-2018 End: 05-09-2024 Sex Female (finding) [facility] Start: 03-31-2022 Tobacco Comment quit in 1989 [facility] Start: 05-09-2018 Gender identity Identifies as female gender (finding) [facility] Sexual Orientation [facility] Start: 09-26-2022 Alcohol Comment Alcohol: 1-2 d rinks occasionally. Caffeine: soda [facility] Medical Equipment Procedure Code Equipment Code Equipment Origin al Text Equipment Identifier Dates Anchors, 5.5 Non Punching - [id number] Start: 07-07-2023 Anchors, 5.5 Non Punching - [id number] Start: 07-07-2023 Functional Status Date Assessment Result Facility 09-19-2024 Functional Status N/A [facility] 06-22-2024 Functional Status N/A [facility] 07-07-2023 Are you deaf, or do you have serious difficulty hearing No 07/07/2023 4:30 PM Marcella Muñoz RN [facility] 07-07-2023 Are you blind, or do you have serious difficulty seeing, even when wearing glasses No 07/07/2023 4:30 PM Marcella Muñoz RN [facility] 07-07-2023 Do you have serious difficulty walking or climbing stairs No 07/07/2023 4:30 PM Marcella Muñoz RN [facility] 07-07-2023 Do you have difficul ty dressing or bathing No 07/07/2023 4:30 PM Marcella Muñoz RN [facility] 07-07-2023 Because of a physica l, mental, or emotional condition, do you have difficulty doing errands alone such as visiting a physician's office or shopping No 07/07/2023 4:30 PM Marcella Muñoz RN [facility] 02-11-2023 Functional Status N/A [facility] Mental Status Date Assessment Result Facility 07-07-2023 Because of a physica l, mental, or emotional condition, do you have serious difficulty concentrating, remembering, or making decisions No 07/07/2023 4:30 PM Marcella Muñoz RN No [facility] Clinical Notes 09-26-2021 to 01-25-2025 Telephone Encounter - Jacinta Neri RN - 01/17/2025 12:35 AM EDTTelephone Encounter - Jacinta Neri RN - 01/17/2025 12:35 AM Marques Espinal MD - 12/27/2024 10:00 AM EDT Note Date & Type Note Facility 01-25-2025 Hospital Discharg e instructions Patient Education 01/25/2025 11:49:00 Urinary Incontinence Urinary Incontinence Urinary incontinence refers to a condition in which a person is unable to control where and when to pass urine. A person with this condition will urinate involuntarily. This means that the person urinates when he or she does not mean to. What are the causes? This condition may be caused by: Medicines. Infections. Constipation. Overactive bladder muscles. Weak bladder muscles. Weak pelvic floor muscles. These muscles provide support for the bladder, intestine, and, in women, the uterus. Enlarged prostate in men. The prostate is a gland near the bladder. When it gets too big, it can pinch the urethra. With the urethra blocked, the bladder can weaken and lose the ability to empty properly. Surgery. Emotional factors, such as anxiety, stress, or post-traumatic stress disorder (PTSD). Spinal cord injury, nerve injury, or other neurological conditions. Pelvic organ prolapse. This happens in women when organs move out of place and into the vagina. This movement can prevent the bladder and urethra from working properly. What increases the risk? The following factors may make you more likely to develop this condition: Age. The older you are, the higher the risk. Obesity. Being physically inactive. and childbirth. Menopause. Diseases that affect the nerves or spinal cord. Long-term, or chronic, coughing. This can increase pressure on the bladder and pelvic floor muscles. What are the signs or symptoms? Symptoms may vary depending on the type of urinary incontinence you have. They include: A sudden urge to urinate, and passing urine involuntarily before you can get to a bathroom (urge incontinence). Suddenly passing urine when doing activities that force urine to pass, such as coughing, laughing, exercising, or sneezing (stress incontinence). Needing to urinate often but urinating only a small amount, or constantly dribbling urine (overflow incontinence). Urinating because you cannot get to the bathroom in time due to a physical disability, such as arthritis or injury, or due to a communication or thinking problem, such as Alzheimer's disease (functional incontinence). How is this diagnosed? This condition may be diagnosed based on: Your medical history. A physical exam. Tests, such as: ?Urine tests. ?X-rays of your kidney and bladder. ?Ultrasound. ?CT scan. ?Cystoscopy. In this procedure, a health care provider inserts a tube with a light and camera (cystoscope) through the urethra and into the bladder to check for problems. ?Urodynamic testing. These tests assess how well the [...] have and its cause. Treatment may include: Lifestyle changes, such as: ?Quitting smoking. ?Maintaining a healthy weight. ?Staying active. Try to get 150 minutes of moderate-intensity exercise every week. Ask your health care provider which activities are safe for you. ?Eating a healthy diet. ?Avoid high-fat foods, like fried foods. ?Avoid refined carbohydrates like white bread and white rice. ?Limit how much alcohol and caffeine you drink. ?Increase your fiber intake. Healthy sources of fiber include beans, whole grains, and fresh fruits and vegetables. Behavioral changes, such as: ?Pelvic floor muscle exercises. ?Bladder training, such as lengthening the amount of time between bathroom breaks, or using the bathroom at regular intervals. ?Using techniques to suppress bladder urges. This can include distraction techniques or controlled breathing exercises. Medicines, such as: ?Medicines to relax the bladder muscles and prevent bladder spasms. ?Medicines to help slow or prevent the growth of a man's prostate. ?Botox injections. These can help relax the bladder muscles. Treatments, such as: ?Using pulses of electricity to help change bladder reflexes (electrical nerve stimulation). ?For women, using a medical lab director to prevent urine leaks. This is a small, tampon-like, disposable device that is inserted into the urethra. ?Injecting collagen or carbon beads (bulking agents) into the urinary sphincter. These can help thicken tissue and close the bladder opening. ?Surgery. Follow these instructions at home: Lifestyle Limit alcohol and caffeine. These can fill your bladder quickly and irritate it. Keep yourself clean to help prevent odors and skin damage. Ask your health care provider about special skin creams and cleansers that can protect the skin from urine. Consider wearing pads or adult diapers. Make sure to change them regularly, and always change them right after experiencing incontinence. General instructions Take pjix-lvw-ahpvrbx and prescription medicines only as told by your health care provider. Use the bathroom about every 3 4 hours, even if you do not feel the need to urinate. Try to empty your bladder completely every time. After urinating, wait a minute. Then try to urinate again. Make sure you are in a relaxed position while urinating. If your incontinence is caused by nerve problems, keep a log of the medicines you take and the times you go to the bathroom. Keep all follow-up visits. This is important. Where to find more information National [place] of Diabetes and Digestive and Kidney Diseases: www.niddk.nih.gov [place] [employer]: www.urologyhealth.org Contact a health care provider if: You have pain that gets worse. Your incontinence gets worse. Get help right away if: You have a fever or chills. You are unable to urinate. You have redness in your groin area or down your legs. Summary Urinary incontinence refers to a condition in which a person is unable to control where and when to pass urine. This condition may be caused by medicines, infection, weak bladder muscles, weak pelvic floor muscles, enlargement of the prostate (in men), or surgery. Factors such as older age, obesity, and childbirth, menopause, neurological diseases, and chronic coughing may increase your risk for developing this condition. Types of urinary incontinence include urge incontinence, stress incontinence, overflow incontinence, and functional incontinence. This condition is usually treated first with [...] provider. Document Revised: 11/23/2020 Document Reviewed: 11/23/2020 [employer] Patient Education [address] [employer]. 01/25/2025 11:48:59 Overactive Bladder, Adult Overactive Bladder, Adult Overactive [...] your health care provider. General instructions Take nkmd-tcr-cfctnyi and prescription medicines only as told by [...] provider. Document Revised: 01/07/2021 Document Reviewed: 01/07/2021 [employer] Patient Education [address] [employer]. Follow Up Care 10/26/2024 08:31:24 With:Maria E Osman PA-C, URL Address: When:Within 2 Month(s) Comments:w/ FLORES [facility] 01-25-2025 Note Patient Education Obstetrics and Gynecology Overactive [...] health care provider. General instructions ??? Take sowb-bzx-nagqdfm and prescription medicines only as told by [...] drink, and whe (more content not included)... [facility] 01-17-2025 Miscellaneous Notes Last OV 11/08/24 EKG 11/08/24 CMP/Mg 11/08/24 documented in this encounter [facility] 01-17-2025 Telephone encounter Note Last OV 11/08/24 EKG 11/08/24 CMP/Mg 11/08/24 [facility] 12-27-2024 History of Presen t illness Narrative [...] Right Popliteal Fossa, Right Thigh - Anterior Melrose and brown stuck on verrucous scaly papule [...] limited to risks of scarring, darker or band saw filer pigmentary changes, recurrence, incomplete removal and infection. [...] pt schedule FBSE documented in this encounter [facility] 12-27-2024 Miscellaneous Notes Theresa: 11/08/2024 documented in this encounter [facility] 12-27-2024 Telephone encounter Note Theresa: 11/08/2024 [facility] 12-18-2024 Note HNO ID: [id number] Author: HARSH BARCENAS RT(R) Service: ? Author [...] PATIENT PRESENTS WITH AN IMPLANTABLE OR ATTACHED OUTSIDE SALES EXECUTIVE: No RADIOLOGY DEPARTMENT: General X-ray: Exam(s) Completed: Chest X-Ray PERIPHERAL IV DATA: Not applicable SIGNED BY: RT Magy(R) December 18, 2024 8:31 PM [facility] 11-29-2024 Evaluation note Diagnosis Onset Date Resolution Dysuria acute November 29 8:53am CKD stage 3a, GFR 45-59 ml/min acute December 29 10:23am Hypokalemia acute December 29, 2024 10:23am [facility] Work Phone: 1(812) 111-570107-24-2025 Miscellaneous Notes* Telephone Encounter - Leslie Negron RN - 11/24/2024 12:24 AM EDT Ov-11/08/24 Cmp-11/08/24 [facility] Tele[facility] encounter Note* Telephone Encounter - Leslie Negron RN - 11/24/2024 12:24 AM EDT Ov-11/08/24 Cmp-11/08/24 [facility]2025 History of Present illness Narrative* Radha Mart APRN-DIRECTOR OF PSYCHOLOGY - 11/08/2024 9:00 AM EDT Bettie Carly Burns Date of visit: 11/08/2024 Date of [...] tablet (20 mg total) before bedtime. vitamins A,C,D-fipq-gujcpd (ICAPS AREDS) 4,296 mcg-226 mg-90 mg capsule [...] office. Past Medical History: Diagnosis Date A-fib ([facility] [place] [place]) hx of Allergic Allergic to certain medications Arrhythmia 12/2016 ATRIAL FIBRILLATION Arthritis Back pain Chronic Nerve ablation 07/12/19 Breast cancer ([facility] [place] [place]) 11/14/2015 LEFT Cataract 02/2019 Removed 03/2019 COVID-19 [...] Performed by Amber Quiñonez MD at [facility] () APPENDECTOMY 1997 ARM SURGERY Both shoulders rotator cuff repair ARTHROSCOPY REPAIR ROTATOR CUFF SHOULDER Right 05/16/2020 Performed by Melchor Rivera DO at [facility] ARTHROSCOPY SHOULDER Right 05/16/2020 Performed by Melchor Rivera DO at [facility] BREAST BIOPSY Left 2015 2016 BREAST LUMPECTOMY Left 11/14/2015 WITH RADIATION BREAST SURGERY Left 2016 lumpectomy CATARACT EXTRACTION CHOLECYSTECTOMY 2001 COLONOSCOPY 2018 Will not need one again Coronary angiogram and left ventricular gram/pressure N/A 08/08/2021 Performed by Bertram aLl MD at [facility] CARDIAC CATH LABS EGD 2017 EYE [...] Needs: No Transportation Needs (07/07/2023) Received from [facility] PRAPARE - Transportation Lack of Transportation (Medical): No Lack of Transportation (Non-Medical): No Physical Activity: Not on file Stress: Not on file Social Connections: Not on file Interpersonal Safety: Not on file Housing Instability: Low Risk (07/07/2023) Received from [facility] Housing Stability Vital Sign Unable to [...] STARKS MD Referring Physician: Elliot Starks MD [address] [place] [address] MEDINA Landry 11/08/24 0926 documented in this encounterTriHealth Good Sam[facility]itan [facility]2025 Instructions* Patient Instructions* MEDINA Landry - 11/08/2024 9:00 AM EDT BP and HR are well controlled. Continue cardiac medications. Recommend follow up in one year. Please call the office if you develop new or worsening symptoms and we will see you sooner. documented in this encounterTriHealth Good [facility]2025 Miscellaneous Notes* Telephone Encounter - Kadie Adler RN - 11/08/2024 12:18 AM EDT OV 11/08/24 CMP, CBC 11/08/24 documented in this encounterTriHealth Good Sam[facility] Hospital2025 Telephone encounter Note* Telephone Encounter - Kadie Adler RN - 11/08/2024 12:18 AM EDT OV 11/08/24 CMP, CBC 11/08/24 [facility]07-01-2025 Miscellaneous Notes* Telephone Encounter - Gabrielle Moffett RN - 11/01/2024 12:27 AM EDT Overdue labs. Pt has been notified. Ov scheduled 11/08 documented in this encounterTriHealth Good Samaritan Hospital07-01-2025 Telephone encounter Note* Telephone Encounter - Gabrielle Moffett RN - 11/01/2024 12:27 AM EDT Overdue labs. Pt has been notified. Ov scheduled 11/08 [facility]05-19-2025 Evaluation + Plan noteExtracted from: Title:[facility] Note Author:Alfreda Miller MD. Date:09/19/24 Impression and Plan Assessment and Plan: Diagnosis: Vaginal atrophy (VYH69-KD N95.2, Discharge, Medical), Recurrent UTI (YRB55-YR N39.0, Discharge, Medical), Mixed incontinence (CSN47-VT N39.46, Discharge, Medical). 79-year-old female with a [...] 08:00:00 AM Scheduled Provider:Maria E Osman PA-C Location[facility] Appointment Type:URO Office Visit [facility] 05-19-2025 Hospital Discharge instructions Follow Up Care 09/19/2024 08:36:00 With:Maria E Osman PA-C, URL Address: When:Within 3 Month(s) Comments:w/ PVR [facility] 05-19-2025 Hospital Discharge instructions Patient Education [...] with PVR With:Alfreda Miller Address:Unknown When: Unknown [facility] 05-19-2025 NoteHistory and Physical Patient: BETTIE [...] 1 month, then 2x a week afterwards, [facility]/pharmacy #[id number], 165, cm, 06/22/24 13:05:00 EST, Height/Length Dosing, 80.7, kg, 06/22/24 13:05:00 EST, Weight Dosing... Keflex 500 mg Cap: 500 mg = 1 cap(s), Oral, q12hr, X 7 day(s), # 14 cap(s), Refills(s) 0, Pharmacy:[facility]/pharmacy #[id number], 165, cm, 06/22/24 13:05:00 EST, Height/Length Dosing, 80.7, kg, 06/22/24 13:05:00 EST, Weight Dosing trospium 60 mg oral capsule, extended release: 60 mg = 1 cap(s), Oral, Bedtime, # 90 tab(s), Refills(s) 3, Pharmacy: [facility], 165, cm, 05/27/23 8:54:00 EST, Height/Length Dosing, 77.5, kg, 05/27/23 8:54:00 EST, Weight Dosing Documented Medications Documented Aleve: Refills(s) 0 BACLOFEN 10 MG TABLET: BACLOFEN 10 MG TABLET Eliquis 5 mg oral tablet: Refills(s) 0 Neuveria Vitamin OTC: Neuveria Vitamin OTC Potassium Chloride (Lct-Rfbr-Cdb 10) 10 mEq oral tablet, extended release: [...] list: All Problems Anticoagulated / SNOMED CT 148294310 / Confirmed Chronic atrial fibrillation / SNOMED CT 2419818486 / Confirmed Eczema / SNOMED CT 19236318 / Confirmed Former smoker / SNOMED CT 64201770 / Confirmed Frequent UTI / SNOMED CT 437396376 / Confirmed History of breast cancer / SNOMED CT 8259794430 / Confirmed History of malignant neoplasm of breast / SNOMED CT 2020535431 / Confirmed Hypertensive disorder / SNOMED CT 9753586937 / Confirmed Microscopic hematuria / SNOMED CT 242172641 / Confirmed Mixed incontinence / SNOMED CT 99893007 / Confirmed Rectocele / SNOMED CT 5851969235 / Confirmed Histories Past Medical History: No active or resolved past medical history items have been selected or recorded. Family History: Entire family history is negative. Procedure history: Cholecystectomy (98732009). Hip replacement (8094295868). Lumpectomy of left breast (7144526209). Rotator cuff (11346354). ROSA - Total abdominal hysterectomy (574222589). Appendectomy (986717222). Cataracts (7869950402). Cardiac ablation system (6682474665). Social History Social & Psychosocial Habits Tobacco [...] per clinic note, risks/benefits previously discussed and documentedFairfield Medical CenterComment on above:Result Comment: Electronically Signed By: Paul VILLEGAS, Alfreda Villavicencio.cassandra\Date and Time Signed: 09/19/24 08:[id number] NoteProgress Note-Physician Patient: BETTIE BURNS Age: 79 [...] 1 month, then 2x a week afterwards, [facility]/pharmacy #[id number], 165, cm, 06/22/24 13:05:00 EST, Height/Length Dosing, 80.7, kg, 06/22/24 13:05:00 EST, Weight Dosing... Keflex 500 mg Cap: 500 mg = 1 cap(s), Oral, q12hr, X 7 day(s), # 14 cap(s), Refills(s) 0, Pharmacy:[facility]/pharmacy #[id number], 165, cm, 06/22/24 13:05:00 EST, Height/Length Dosing, 80.7, kg, 06/22/24 13:05:00 EST, Weight Dosing trospium 60 mg oral capsule, extended release: 60 mg = 1 cap(s), Oral, Bedtime, # 90 tab(s), Refills(s) 3, Pharmacy: [facility], 165, cm, 05/27/23 8:54:00 EST, Height/Length Dosing, 77.5, kg, 05/27/23 8:54:00 EST, Weight Dosing Documented Medications Documented Aleve: Refills(s) 0 BACLOFEN 10 MG TABLET: BACLOFEN 10 MG TABLET Eliquis 5 mg oral tablet: Refills(s) 0 Neuveria Vitamin OTC: Neuveria Vitamin OTC Potassium Chloride (Tpa-Jhpz-Dzr 10) 10 mEq oral tablet, extended release: [...] Plan Assessment and Plan: Diagnosis: Vaginal atrophy (MGE26-PE N95.2, Discharge, Medical), Recurrent UTI(UAL82-QV N39.0, Discharge, Medical), Mixed incontinence (MNX27-GN N39.46, Discharge, Medical). 79-year-old female with a [...] up CT scan confirmed passage. Increase fluids recommendedFairfield Medical CenterComment on above:Result Comment: Electronically Signed By: Paul VILLEGAS, Alfreda Villavicencio.br\Date and Time Signed: 09/19/24 08:[id number] Note Patient Education Cystoscopy with Botox injection [...] you have a fever over 100 degrees. ???[facility]04-02-2025 Miscellaneous Notes* Telephone Encounter - Leslie Negron RN - 08/03/2024 12:21 AM EDT Ov-11/26/23 Cmp and mg -07/15/23 New cmp and mg order placed and letter sent 08/04/24 documented in this encounterAdams County HospitalSixDoors [id number] Telephone encounter Note* Telephone Encounter - Leslie Negron RN - 08/03/2024 12:21 AM EDT Ov-11/26/23 Cmp and mg -07/15/23 New cmp and mg order placed and letter sent 08/04/24 [facility]Zar[facility] [id number] Miscellaneous Notes* Telephone Encounter - Sander Pollack RN - 07/27/2024 1:57 PM EDT P/c from pt requesting refills to [facility]. OV 11/26/23 07/14/24 MAG, CMP, CBC EKG 08/12/23 documented in this encounterTriHealth Good Samaritan Hospital03-26-2025 Telephone encounter Note* Telephone Encounter - Sander Pollack RN - 07/27/2024 1:57 PM EDT P/c from pt requesting refills to [facility]. OV 11/26/23 07/14/24 MAG, CMP, CBC EKG 08/12/23 [facility]03-13-2025 History of Present illness Narrative* Svitlana Hayden - 07/14/2024 2:00 PM EDT Ortho Nurse - Established Patient Intake Room#: 5 Date: 07/14/2024 1:15 PM Patient: Bettie Burns MR#: [id number] : 1945 Age: 79 y.o. 1yr R [...] LUMPECTOMY FOOT SURGERY HEART CATHETERIZATION no stents IN ENDOMETRIAL CRYOABLATION W/US & ENDOMETRIAL CR REMOVAL [...] x 1 month, then 2x/week for maintainence, [facility]/pharmacy #[id number], 165, cm, 02/11/23 10:41:00 EDT, Height/Length Dosing, [...] x 1 month, then 2x/week for maintainence, [facility]/pharmacy #[id number], 165, cm, 02/11/23 10:41:00 EDT, [...] oxycodone, penicillins, and tramadol. * Paula Barrera APRN-DIRECTOR OF PSYCHOLOGY - 07/14/2024 2:00 PM EDT HPI: Patient [...] 07/14/2024 1:15 PM Patient: Bettie Burns MR#: [id number] : 1945 Age: 79 y.o. 1yr R [...] LUMPECTOMY FOOT SURGERY HEART CATHETERIZATION no stents IN ENDOMETRIAL CRYOABLATION W/US & ENDOMETRIAL CR REMOVAL [...] x 1 month, then 2x/week for maintainence, [facility]/pharmacy #[id number], 165, cm, 02/11/23 10:41:00 EDT, [...] x 1 month, then 2x/week for maintainence, [facility]/pharmacy #[id number], 165, cm, 02/11/23 10:41:00 EDT, [...] and tramadol. documented in this encounterMer[facility]02-27-2025 Miscellaneous Notes* Telephone Encounter - Mami Cifuentes RN - 06/30/2024 12:22 AM EST OV 11/26/2023 documented in this encounterTriHealth Good Samaritan Hospital02-27-2025 Telephone encounter Note* Telephone Encounter - Mami Cifuentes RN - 06/30/2024 12:22 AM EST OV 11/26/2023 [facility]02-19-2025 Hospital Discharge instructions Patient Education 06/22/2024 [...] Follow these instructions at home: Medicines Take ufpw-rev-aoxrzwh and prescription medicines only as told by [...] or the blood stops without treatment. Take sths-gfs-roaqbxc and prescription medicines only as told by your health care provider. Drink enough fluid to keep your urine pale yellow. This information is not intended to replace advice given to you by your health care provider. Make sure you discuss any questions you have with your health care provider. Document Revised: 12/19/2020 Document Reviewed: 12/19/[address] [employer] Patient Education [address] [employer] 06/22/2024 15:04:17 Overactive Bladder, Adult Overactive Bladder, [...] your health care provider. General instructions Take fsaa-huu-ktakbew and prescription medicines only as told by [...] provider. Document Revised: 01/07/2021 Document Reviewed: 01/07/2021 [employer] Patient Education [address] [employer]. Follow Up Care 06/22/2024 10:24:57 With:Paul VILLEGAS, Alfreda Palacios URL, URO Address: When: Unknown Comments:F/U pending cystoscopy [facility] 02-19-2025 NotePatient Education Obstetrics and Gynecology [...] health care provider. General instructions ??? Take wwiu-jld-icjgbvc and prescription medicines only as told by [...] you drink, and whe (more content not included)...[facility]12-28-2024 Evaluation note* Diagnosis Onset Date Resolution Status Admit Date Acute bilateral otitis media acute April 30, 2024 9:54am [facility] Work Phone: 1(270) 740-273512-28-2024 Evaluation note* Diagnosis Onset Date Resolution Status Admit Date Acute bilateral otitis media acute April 30, 2024 9:54am Acute otitis media with effusion acute May 09 9:07am Insomnia acute May 09, 2 025 9:07am Reaction, situational, acute , to stress acute May 09 9:07am [facility] Work Phone: 1(154) 942-467208-31-2024 Miscellaneous Notes* Telephone Encounter - Jacinta Neri [...] Low 56 Low CM documented in this encounterTriHealth Good Samaritan Hospital08-31-2024 Telephone encounter Note* Telephone Encounter - [...] >59 ml/min/1.73sq.m 46 Low 56 Low CM [facility] HospitalBesste[facility] Playdom [id number] History of Present illness Narrative* Hal Amado - 11/26/2023 2:00 PM EDT Ortho Nurse - Established Patient Intake Room#: 3 --- Patient presents today for 4 month follow-up of RTHA. Patient states that pain is 2/10today. Patient states that she is improved especially with PT, but is still limping more than she anticipated. Patient has been doing PT at [facility] and this helps, says next week is her last session. Patient states that she is due for nerve block in SI joint at [facility] who she seesregularly, states that she needs approval from Dr. Ohara on this. Date: 11/26/2023 2:25 PM Patient: Bettie Burns MR#: [id number] : 1945 Age: 78 y.o. Referring Physician: [...] LUMPECTOMY FOOT SURGERY HEART CATHETERIZATION no stents IN ENDOMETRIAL CRYOABLATION W/US & ENDOMETRIAL CR REMOVAL [...] x 1 month, then 2x/week for maintainence, [facility]/pharmacy #[id number], 165, cm, 02/11/23 10:41:00 EDT, [...] x 1 month, then 2x/week for maintainence, [facility]/pharmacy #[id number], 165, cm, 02/11/23 10:41:00 EDT, [...] anticipated. Patient has been doing PT at [facility] and this helps, says next week is her last session. Patient states that she is due for nerve block in SI joint at [facility] who she seesregularly, states that she needs approval from Dr. Ohara on this. Date: 11/26/2023 2:25 PM Patient: Bettie Burns MR#: [id number] : 1945 Age: 78 y.o. Referring Physician: [...] LUMPECTOMY FOOT SURGERY HEART CATHETERIZATION no stents IN ENDOMETRIAL CRYOABLATION W/US & ENDOMETRIAL CR REMOVAL [...] x 1 month, then 2x/week for maintainence, [facility]/pharmacy #[id number], 165, cm, 02/11/23 10:41:00 EDT, [...] x 1 month, then 2x/week for maintainence, [facility]/pharmacy #[id number], 165, cm, 02/11/23 10:41:00 EDT, [...] oxycodone, penicillins, and tramadol. documented in this [facility]07-25-2024 History of Present illness [...] Burns was seen in follow-up in the [place] office. Records are reviewed. She is a [...] avoidance. Past Medical History: Diagnosis Date A-fib ([facility] [place] [place]) hx of Arrhythmia 12/2016 ATRIAL FIBRILLATION Arthritis Breast cancer ([facility] [place] [place]) 11/14/2015 LEFT COVID-19 03/2020 History of bleeding ulcers Hypertension Migraines Pneumonia d/t covid Prolonged emergence from general anesthesia Visual impairment glasses No data recorded No data recorded No data recorded Past Surgical History: Procedure Laterality Date ABLATION OF DYSRHYTHMIC FOCUS Right nerve ablation, L4 and L5 Afib ablation with SHANICE - CRYO, Rhythmia, ICE N/A 09/28/2018 Performed by Amber Quiñonez MD at [facility] () ARTHROSCOPY REPAIR ROTATOR CUFF SHOULDER Right 05/16/2020 Performed by Melchor Rivera DO at [facility] ARTHROSCOPY SHOULDER Right 05/16/2020 Performed by Melchor Rivera DO at [facility] BREAST BIOPSY Left 2016 BREAST LUMPECTOMY Left 11/14/2015 WITH RADIATION BREAST SURGERY Left 2013 lumpectomy CATARACT EXTRACTION CHOLECYSTECTOMY COLONOSCOPY Coronary angiogram and left ventricular gram/pressure N/A 08/08/2021 Performed by Bertram Lal MD at [facility] CARDIAC CATH LABS EYE SURGERY lids [...] Needs: No Transportation Needs (07/07/2023) Received from [facility], [facility] PRAPARE - Transportation Lack of Transportation (Medical): No Lack of Transportation (Non-Medical): No Physical Activity: Not on file Stress: Not on file Social Connections: Not on file Interpersonal Safety: Not on file Housing Instability: Low Risk (07/07/2023) Received from [facility], [facility] Housing Stability Vital Sign Unable to [...] STARKS MD Referring Physician: Elliot Starks MD [address] [place] [address] documented in this encounterTriHealth Good Samaritan Hospital07-24-2024 Miscellaneous Notes* Telephone Encounter - Medina Jaramillo MA - 11/25/2023 10:56 AM EDT Called patient to remind them to bring their most current copy of their medication list with them to their appt. Patient verbalizes understanding. documented in this encounterTriHealth Good Samaritan Hospital07-24-2024 Telephone encounter Note* Telephone Encounter - Medina Jaramillo MA - 11/25/2023 10:56 AM EDT Called patient to remind them to bring their most current copy of their medication list with them to their appt. Patient verbalizes understanding. [facility]06-17-2024 Miscellaneous Notes* Telephone Encounter - Jacinta Neri RN - 10/19/2023 9:19 AM EDT Last OV 08/25 CMP 07/25 documented in this encounterTriHealth Good Samaritan Hospital06-17-2024 Telephone encounter Note* Telephone Encounter - Jacinta Neri RN - 10/19/2023 9:19 AM EDT Last OV 08/25 CMP 07/25 [facility]05-16-2024 Telephone encounter Note* Telephone Encounter - Matt Adams RN - 09/17/2023 1:30 PM EDT Order faxed to Torey Julio Pt aware. Matt Adams RN [facility]05-16-2024 Miscellaneous Notes* Telephone Encounter - Matt Adams RN - 09/17/2023 1:30 PM EDT Order faxed to Torey Julio Pt aware. Matt Adams RN * Telephone Encounter - Matt Adams RN - 09/17/2023 10:18 AM EDT Pt called to request yearly Mammogram order I have pended order as previously completed Pt requests to fax to Nori Lema [phone] BRM/HM: please review and sign if agreeable Matt Adams RN documented in this encounterSt. [facility]05-16-2024 Telephone encounter Note * Telephone Encounter - Matt Adams RN - 09/17/2023 10:18 AM EDT Pt called to request yearly Mammogram order I have pended order as previously completed Pt requests to fax to Nori Lema [phone] BRM/HM: please review and sign if agreeable Matt Adams RN [facility]04-18-2024 History of Present illness Narrative* Eva [...] she is interested in Physcial Therapy through [facility]. Date: 08/20/2023 2:38 PM Patient: Bettie Burns MR#: [id number] : 1945 Age: 78 y.o. Referring Physician: [...] LUMPECTOMY FOOT SURGERY HEART CATHETERIZATION no stents IN ENDOMETRIAL CRYOABLATION REMOVAL BILIARY DUCT/GALLBLADDER CALCULI/DEBRIS PERCUTANEOUS [...] x 1 month, then 2x/week for maintainence, [facility]/pharmacy #[id number], 165, cm, 02/11/23 10:41:00 EDT, Height/Length Dosing, [...] pertinant portions of the clinical sales support associate documentation was reviewed and I [...] she is interested in Physcial Therapy through [facility]. Date: 08/20/2023 2:38 PM Patient: Bettie Burns MR#: [id number] : 1945 Age: 78 y.o. Referring Physician: Self, Self Insurance: Payor: MEDICARE AETMelon [employer]emelon HMO OR PPO / Plan: MEDICARE [email or web address]formerly [employer]) PPO / Product Type: *No Product type* [...] LUMPECTOMY FOOT SURGERY HEART CATHETERIZATION no stents IN ENDOMETRIAL CRYOABLATION REMOVAL BILIARY DUCT/GALLBLADDER CALCULI/DEBRIS PERCUTANEOUS [...] x 1 month, then 2x/week for maintainence, [facility]/pharmacy #[id number], 165, cm, 02/11/23 10:41:00 EDT, Height/Length Dosing, [...] and tramadol. documented in this encounterMer[facility]04-08-2024 Miscellaneous Notes* Telephone Encounter - Ray Wills LPN - 08/10/2023 12:45 AM EDT Theresa 08/12/23 Cmp, mg 07/15/23 documented in this encounterTriHealth Good Samaritan Hospital04-08-2024 Telephone encounter Note* Telephone Encounter - Ray Wills LPN - 08/10/2023 12:45 AM EDT Theresa 08/12/23 Cmp, mg 07/15/23 [facility]03-21-2024 History of Present illness Narrative* Eva [...] 07/23/2023 2:45 PM Patient: Bettie Burns MR#: [id number] : 1945 Age: 78 y.o. Referring Physician: [...] LUMPECTOMY FOOT SURGERY HEART CATHETERIZATION no stents IN ENDOMETRIAL CRYOABLATION REMOVAL BILIARY DUCT/GALLBLADDER CALCULI/DEBRIS PERCUTANEOUS [...] x 1 month, then 2x/week for maintainence, [facility]/pharmacy #[id number], 165, cm, 02/11/23 10:41:00 EDT, Height/Length Dosing, [...] arthrex anchors -Incision was cleansed with Betadine. [place] were removed without issue, steri strip placed. [...] pertinant portions of the clinical sales support associate documentation was reviewed. Divine Dougherty I have reviewed the findings of the clinical sales support associate and agree with their assessment. Divine Dougherty [...] 07/23/2023 2:45 PM Patient: Bettie Burns MR#: [id number] : 1945 Age: 78 y.o. Referring Physician: [...] LUMPECTOMY FOOT SURGERY HEART CATHETERIZATION no stents IN ENDOMETRIAL CRYOABLATION REMOVAL BILIARY DUCT/GALLBLADDER CALCULI/DEBRIS PERCUTANEOUS [...] x 1 month, then 2x/week for maintainence, [facility]/pharmacy #[id number], 165, cm, 02/11/23 10:41:00 EDT, Height/Length Dosing, [...] oxycodone, penicillins, and tramadol. documented in this [facility]03-15-2024 Miscellaneous Notes* Telephone Encounter - Estela Bueno RN - 07/17/2023 1:28 AM EDT Dose confirmed with patient documented in this encounterTriHealth Good Samaritan Hospital03-15-2024 Telephone encounter Note* Telephone Encounter - Estela Bueno RN - 07/17/2023 1:28 AM EDT Dose confirmed with patient [facility]03-13-2024 Miscellaneous Notes* Telephone Encounter - Ashia [...] she was willing. slm documented in this [facility]03-13-2024 Telephone encounter Note* Telephone Encounter - [...] the ER and she was willing. slm [facility]03-06-2024 Miscellaneous Notes* Nursing Notes - Dolly [...] 07, 2023 ATTENDING PHYSICIAN: Miko Ohara M.D. 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 PROCEDURE PERFORMED: Unlisted procedure of right hip and pelvis, dual-row suture anchor repair of 100% massive abductor tear of right hip, work equivalent similar to CPT 44215 Periarticular injection of right hip. ANESTHESIA: General. [...] it as a CPT similar to that, 35246. ATTENDING/ASSISTING PARTICIPATION: This operation could not have been safely performed (without compromising the technical results or length of the procedure) without the assistance of a skilled surgical manager. A surgical manager was medically necessary for positioning, retraction and [...] OPERATIVE/PROCEDURE NOTE Bettie Burns 77 y.o. female [id number] SURGEON Surgeons and Role: * Miko Ohara MD - Primary HIGH SCHOOL MATH TUTOR MEDINA Richardson ANESTHESIOLOGIST BUSINESS INTELLIGENCE ETL DEVELOPER: Chance Ngo CRNA; PALAK Barrett SURGICAL STAFF Stakes Player: Kisha Karimi RN; Whit Govea, RICARDO Nurse [...] Implant Name Type Inv. Item Serial No. Dragger Lot No. LRB No. Used Action ANCHORS, 5.5 NON PUNCHING - [id number] ANCHORS, 5.5 NON PUNCHING HIST ARTHREX [id number] Right 1 Implanted ANCHORS, 5.5 NON PUNCHING - [id number] ANCHORS, 5.5 NON PUNCHING HIST ARTHREX [id number] Right 3 Implanted SPECIMENS ID Type Source [...] Miko Ohara MD 07/07/2023 1434 Paula Barrera APRN-DIRECTOR OF PSYCHOLOGY July 07, 2023 3:28 PM * Nursing Notes - Chelsea Bledsoe RN - 07/07/2023 10:52 AM EST Unable to doppler right dorsalis pedis pulse. documented in this encounterMer[facility]03-06-2024 Nurse Note* Nursing Notes - Dolly [...] patient discharged home with daughter and . [facility]03-06-2024 Hospital Discharge instructions* Discharge Instructions* Carmen [...] at all times - Use a leg registered nurse obstetrics to get in and out of bed [...] - 2023 12:01 PM EST Contact Office ([phone]) if: > Any falls or injuries > [...] incision or operative leg. documented in [facility] History of Present illness Narrative* Carmen [...] LUMPECTOMY FOOT SURGERY HEART CATHETERIZATION no stents IN ENDOMETRIAL CRYOABLATION REMOVAL BILIARY DUCT/GALLBLADDER CALCULI/DEBRIS PERCUTANEOUS [...] 0 Equipment Available wheeled walker;elevated toilet seat;shower chair;chocolate molder Cognitive Status Examination Orientation Status (Cognition) oriented [...] Supine to Sit, Rehab Eval Level of [place]: Supine/Sit stand-by assist Physical Assist/Nonphysical Assist: Supine/Sit 1 person assist Transfer Skill: Sit to Stand, Rehab Eval Level of [place]: Sit/Stand contact guard Physical Assist/Nonphysical Assist: Sit/Stand 1 person assist Weight-Bearing Restrictions: Sit/Stand toe touch weight-bearing Assistive Device for Transfer: Sit/Stand wheeled walker Upper Body Dressing Level of [place] independent Physical Assist/Nonphysical Assist set-up required Lower Body Dressing Level of [place] maximum assist (25% patients effort) Physical Assist/Nonphysical Assist 1 person assist Assistive Device chocolate molder General Therapy Interventions Planned Therapy Interventions (OT Eval) ADL retraining;balance training;transfer training Clinical Impression Co-evaluation/co-treatment performed? Yes, combination of simultaneous billable and individual billable skilled care was necessary due to medical complexity and functional deficits Patient Instruction/Education comments Pt instructed on LB dressing techniques donning underwear and shorts min assist in sitting and standing with training on use of chocolate molder to maintain hip precautions Rehab Potential (OT [...] hygiene training Therapist Information License # [id number] 1. Pt will complete LB dressing SBA [...] LUMPECTOMY FOOT SURGERY HEART CATHETERIZATION no stents IN ENDOMETRIAL CRYOABLATION REMOVAL BILIARY DUCT/GALLBLADDER CALCULI/DEBRIS PERCUTANEOUS [...] Supine to Sit, Rehab Eval Level of [place]: Supine/Sit stand-by assist Physical Assist/Nonphysical Assist: Supine/Sit 1 person assist Transfer Skill: Sit To Stand, Rehab Eval [place] (Sit-Stand Transfers) contact guard Physical Assist/Nonphysical Assist: Sit/Stand 1 person assist Weight-Bearing Restrictions: Sit/Stand toe touch weight-bearing Assistive Device For Transfer: Sit/Stand 2 wheeled walker Gait Skills, PT Eval Level of [place]: Gait contact guard Physical Assist/Nonphysical Assist: Gait [...] educated on hip precautions, use of leg registered nurse obstetrics and weight bearing status. Pteducated to only [...] DISCUSSED WITH DR OHARA. documented in this [facility]03-06-[facility]24 Hospital course Narrative* Chance [...] x 1 month, then 2x/week for maintainence, [facility]/pharmacy #[id number], 165, cm, 02/11/23 10:41:00 EDT, Height/Length Dosing, [...] Dept Phone 07/23/2023 2:30 PM [facility] Orthopedics [phone] documented in [address] [facility] [address] Surgery Postoperative evaluation and management note* Op Note - Miko Ohara MD - 2023 5:54 AM EST DATE OF PROCEDURE: July 07, 2023 ATTENDING PHYSICIAN: Miko Ohara M.D. 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 PROCEDURE PERFORMED: Unlisted procedure of right hip and pelvis, dual-row suture anchor repair of 100% massive abductor tear of right hip, work equivalent similar to CPT 46177 Periarticular injection of right hip. ANESTHESIA: General. [...] it as a CPT similar to that, 32124. ATTENDING/ASSISTING PARTICIPATION: This operation could not have been safely performed (without compromising the technical results or length of the procedure) without the assistance of a skilled surgical manager. A surgical manager was medically necessary for positioning, retraction and instrume ntation. [facility]03-06-2024 Nurse Note* Nursing Notes - Aidee Field RN - 2023 4:10 AM EST Assessment remains unchanged from previous. Neuro checks WN, abductor pillow in place. Call light within reach. [facility]03-06-2024 Nurse Note* Nursing Notes - Aidee Field RN - 2023 12:05 AM EST Assessment remains unchanged from previous. Neuro checks WNL, abductor pillow in place. Denies futher needs, call light within reach. [facility]03-05-2024 Consult note* Chance Mahoney MD - [...] LUMPECTOMY FOOT SURGERY HEART CATHETERIZATION no stents IN ENDOMETRIAL CRYOABLATION REMOVAL BILIARY DUCT/GALLBLADDER CALCULI/DEBRIS PERCUTANEOUS [...] metabolic panel in the morning GI prophylaxis. [facility]03-05-2024 Consult note* Chance Mahoney MD - [...] LUMPECTOMY FOOT SURGERY HEART CATHETERIZATION no stents IN ENDOMETRIAL CRYOABLATION REMOVAL BILIARY DUCT/GALLBLADDER CALCULI/DEBRIS PERCUTANEOUS [...] the morning GI prophylaxis. documented in this encounterMer[facility] Nurse Note* Nursing Notes - Marcella [...] reach. FAITH intact flashing green. [facility]03[facility] Nurse Note* Sara Garcia RN - 07/07/2023 4:00 PM EST Patient transferred to [facility] via cart in stable condition. Report given [...] Fire score of: 2 documented [address] [facility] [address] Nurse Surgical operation note* Sara Garcia RN - 07/07/2023 4:00 PM EST Patient transferred to [facility] via cart in stable condition. Report given to RICARDO Kim. Cart left in locked and lowest position with side rails up x2. Snack and call light given to patient. Monitorsand alarms on and attached to patient. [facility] Nurse Surgical operation note* Edison Perez RN - 07/07/2023 3:30 PM EST Patient transported to PACU with Damián TILLEY. Reports given to Sara SILVA at 1530H. [facility]03-05-2024 Surgery Postoperative evaluation and management note* Brief Op Note - MEDINA Richardson - 07/07/2023 3:28 PM EST POST OPERATIVE/PROCEDURE NOTE Bettie Burns 77 y.o. female [id number] SURGEON Surgeons and Role: * Miko Ohara MD - Primary HIGH SCHOOL MATH TUTOR MEDINA Richardson ANESTHESIOLOGIST BUSINESS INTELLIGENCE ETL DEVELOPER: Chance Ngo CRNA; PALAK Barrett SURGICAL STAFF Stakes Player: Kisha Karimi RN; Whit Govea, RICARDO Nurse [...] Implant Name Type Inv. Item Serial No. Dragger Lot No. LRB No. Used Action ANCHORS, 5.5 NON PUNCHING - [id number] ANCHORS, 5.5 NON PUNCHING HIST ARTHREX [id number] Right 1 Implanted ANCHORS, 5.5 NON PUNCHING - [id number] ANCHORS, 5.5 NON PUNCHING HIST ARTHREX [id number] Right 3 Implanted SPECIMENS ID Type Source [...] Miko Ohara MD 07/07/2023 [id number] Paula Barrera APRN-DIRECTOR OF PSYCHOLOGY July 07, 2023 3:28 PM [facility]03-05-2024 Nurse Surgical operation note* Whit Govea RN - 07/07/2023 2:04 PM EST OR 3 room temp: 65.1F Humidity: 44% Fire score of: 2 [facility]03-05-2024 Nurse Note* Nursing Notes - Chelsea Bledsoe RN - 07/07/2023 10:52 AM EST Unable to doppler right dorsalis pedis pulse. [facility]02-16-2024 Miscellaneous Notes* Telephone Encounter - Jacqueline Sparrow [...] to Dr Ohara office. documented in this encounterAd[facility] HospitalLicense[facility]-16-[facility]24 Telephone encounter Note* Telephone Encounter - Jacqueline [...] on risk, holding Eliquis and Celebrex question. [facility] KIS [phone] Telephone encounter Note* Telephone Encounter - Mundo Diaz MD - 06/19/2023 12:01 PM EST Okay to proceed with surgery at moderate risk Can use Celebrex Hold Eliquis for 2 days resume after surgery [facility] Work Phone: [phone] Telephone encounter Note* Telephone Encounter - Jacqueline Sparrow RN - 06/19/2023 12:01 PM EST Clearance note faxed back to Dr Ohara office. [facility]02-15-2024 History of Present illness Narrative* Eva Landryclair [...] year ago with Dr. Denver Hughes in [place]. Pt states she is looking for a second opinion due to having issues from this past surgery. Date: 06/18/2023 2:32 PM Patient: Bettie Burns MR#: [id number] : 1945 Age: 77 y.o. Referring Physician: Miko Ohara MD Insurance: Payor: MEDICARE T HMO OR PPO / Plan: MEDICARE AET [...] APPENDECTOMY BREAST LUMPECTOMY FOOT SURGERY HEART CATHETERIZATION IN ENDOMETRIAL CRYOABLATION REMOVAL BILIARY DUCT/GALLBLADDER CALCULI/DEBRIS PERCUTANEOUS [...] tendons as discussed in detail above. 3. [id number] amount of fluid along the lateral aspect [...] nasal MRSA screening, scheduling an appointment for [facility] and the potential surgical date, and reviewing [...] APPENDECTOMY BREAST LUMPECTOMY FOOT SURGERY HEART CATHETERIZATION IN ENDOMETRIAL CRYOABLATION REMOVAL BILIARY DUCT/GALLBLADDER CALCULI/DEBRIS PERCUTANEOUS W/ IMAGE REMOVAL CATARACT (PEM) ROTATOR CUFF REPAIR History reviewed. No pertinent family history. Social History Socioeconomic History Marital status: Tobacco Use Smoking status: Never Smokeless tobacco: Never Social Determinants of Health Food Insecurity: No Food Insecurity (06/02/2023) Received from [facility] Hunger Screening Within the past 12 months [...] Morphine Oxycodone Penicillins Tramadol documented in this [facility]01-[facility] History of Present illness Narrative* Mundo Diaz [...] issues. Past Medical History: Diagnosis Date A-fib ([facility] [place] [place]) hx of Arrhythmia 12/2016 ATRIAL FIBRILLATION Arthritis Breast cancer ([facility] [place] [place]) 11/14/2015 LEFT COVID-19 03/2020 History of bleeding ulcers Hypertension Migraines Pneumonia d/t covid Prolonged emergence from general anesthesia Visual impairment glasses No data recorded No data recorded No data recorded Past Surgical History: Procedure Laterality Date ABLATION OF DYSRHYTHMIC FOCUS Right nerve ablation, L4 and L5 Afib ablation with SHANICE - CRYO, Rhythmia, ICE N/A 09/28/2018 Performed by Amber Quiñonez MD at [facility] HR (EP) ARTHROSCOPY REPAIR ROTATOR CUFF SHOULDER Right 05/16/2020 Performed by Melchor Rivera DO at [facility] ARTHROSCOPY SHOULDER Right 05/16/2020 Performed by Melchor Rivera DO at [facility] BREAST BIOPSY Left 2016 BREAST LUMPECTOMY Left 11/14/2015 WITH RADIATION BREAST SURGERY Left 2012 lumpectomy CATARACT EXTRACTION CHOLECYSTECTOMY COLONOSCOPY Coronary angiogram and left ventricular gram/pressure N/A 08/08/2021 Performed by Bertram Lal MD at [facility] CARDIAC CATH LABS EYE SURGERY lids [...] STARKS MD Referring Physician: Elliot Starks MD [address] [place] [address] documented in this encounterTri[facility] History of Present illness Narrative* Divine Boudreaux - 05/14/2023 9:30 AM EST Ortho Nurse - Patient Intake 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 Referring Physician: [...] [x]cane, []bracing Are you followed by a loader technician? [x] [] Name: Dr. Waleska Zhu - [facility] Are you followed by pain management? [x] [] Name: Dr. Cedeno - [facility] Are you followed by any other specialists? [x] [] Name: Oncolgist - Dr. Choi [facility] Urologist - Dr. Christian Bourne Outpatient [...] abductor muscles as well as ESR/CRP and Ransom and Chromium labs today. I will see [...] APPENDECTOMY BREAST LUMPECTOMY FOOT SURGERY HEART CATHETERIZATION IN ENDOMETRIAL CRYOABLATION REMOVAL BILIARY DUCT/GALLBLADDER CALCULI/DEBRIS PERCUTANEOUS [...] daily., Disp: , Rfl: omeprazole [address] 1 capsule by mouth daily., Disp: , [...] Penicillins Tramadol documented in this encounterMer[facility] Evaluation note* Encounter Date Diagnosis Assessment [...] verbalizes understanding and agrees with tx plan. [facility] Other 10-11-2023 Hospital Discharge instructions Patient Education [...] provider. Document Revised: 08/29/2021 Document Reviewed: 08/29/2021 [employer] Patient Education [address] [employer] Follow Up Care 11/06/2022 15:31:52 With:Paul VILLEGAS, PERLA Araujo, URO Address: When:Within 3 Month(s) [facility] 07-17-2023 Evaluation note* Encounter Date Diagnosis Assessment Notes Treatment Notes Treatment Clinical Notes Nov, Dysuria (ICD-10 - R30.0) [facility] Other 06-29-2023 Evaluation note* Encounter Date Diagnosis Assessment Notes Treatment Notes Treatment Clinical Notes Oct, Frequent UTI (ICD-10 - N39.0) Pt requests Urology referral. Discussed also getting CT to move along process. 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 Matt Adams RN * Telephone Encounter - Matt Adams RN - 09/11/2022 9:51 AM EDT Pt called to request yearly Mammogram order I have pended order as previously completed Pt requests to fax to Nori Lema [phone] BRM/HM: please review and sign if agreeable Matt Adams RN documented in this encounterSt. [facility]04-10-[facility] Evaluation note* Encounter Date Diagnosis Assessment Notes Treatment Notes Treatment Clinical Notes Aug, Dysuria (ICD-10 - R30.0) [facility] Other 03-16-2023 Evaluation note* Encounter Date Diagnosis [...] N32.81) chronic and improved on present med [facility] Other 02-20-2023 Evaluation note* Encounter Date Diagnosis Assessment Notes Treatment Notes Treatment Clinical Notes Jun, Dysuria (ICD-10 - R30.0) [facility] Other 02-03-2023 Evaluation note* Encounter Date Diagnosis Assessment Notes Treatment Notes Treatment Clinical Notes Jun, OAB (overactive bladder) (ICD-10 - N32.81) [facility] Other 02-01-2023 Evaluation note* Encounter Date Diagnosis Assessment Notes Treatment Notes Treatment Clinical Notes Jun, OAB (overactive bladder) (ICD-10 - N32.81) Patient request to try new medication reviewed side effect profile. Patient declines urology or COLLECTOR referral at this time. Jun, Essential hypertension (ICD-10 - I10) reviewed and updated medications she will follow-up with cardiology in Jun, Hypokalemia (ICD-10 - E87.6) Reviewed and updated medications. Discussed foods that are high in potassium Jun, Right lumbar pain (ICD-10 - M54.50) Follow-up with Dr. Rivera as scheduled in June. She does have limping with her gait. [facility] Other 05-26-2022 Miscellaneous Notes* Telephone Encounter - Andrew Choi MD - 09/26/2021 5:13 PM EDT Okay to change to screening mammogram. Order signed. ASIYA Ford * Telephone Encounter - Mikaela Thompson RN - 09/26/2021 2:33 PM EDT Pt scheduled for diagnostic mamm tomorrow @ [facility]. Hospital calls to ask if this could be changed to a screening mammogram since the pt is greater than 2 years from diagnosis? Mikaela Thompson RN documented in this encounterSt. Francis HospitalEvaluation + Plan note Future Appointments Appointment Date:05/27/2023 08:45:00 AM Scheduled Provider:Paul VILLEGAS, Alfreda Palacios Location:[facility] Appointment Type:URO Office Visit [facility] evaluation + Plan note Future Appointments Appointment Date:07/22/2024 10:30:00 AM Scheduled Provider: Location:[facility] Services Appointment Type:Urology CALL PAT FT Appointment Date:07/25/2024 08:15:00 AM Scheduled Provider: Location:[facility] Appointment Type:Urology FT [facility] evaluation + Plan note Future Appointments Appointment Date:07/22/2024 10:30:00 AM Scheduled Provider: Location:[facility] Appointment Type:Urology CALL PAT FT Appointment Date:07/25/2024 08:15:00 AM Scheduled Provider: Location:[facility] Appointment Type:Urology FT Diagnostic Tests Pending * Urine Culture 06/22/24 [facility] evaluation + Plan note Future Appointments Appointment Date:09/16/2024 11:30:00 AM Scheduled Provider: Location:[facility] Appointment Type:Urology CALL PAT FT Appointment Date:09/19/2024 08:00:00 AM Scheduled Provider: Location:[facility] Appointment Type:Urology FT [facility] evalvhrcsx + Plan note Future Appointments Appointment Date:01/25/2025 08:00:00 AM Scheduled Provider:Maria E Osman PA-C Location:[facility] Appointment Type:URO Office Visit [facility] evaluation + Plan note Future Appointments Appointment Date:03/14/2025 08:00:00 AM Scheduled Provider:Maria E Osman PA-C Location:[facility] Appointment Type:URO Office Visit [facility] evaluation note* Diagnosis Encounter for screening mammogram for malignant neoplasm of breast- Primary Other screening mammogram documented in this encounter [facility] note* Diagnosis Malignant neoplasm of upper-outer quadrant of left breast in female, estrogen receptor positive (HCC)- Primary [facility] noteNo InformationNort BayPackets Other Evaluation note* Diagnosis Encounter for screening mammogram for malignant neoplasm of breast- Primary Other screening mammogram documented in this encounter [facility] HospitalEvalubeebe healthcare noteNo assessment information [facility] Work Phone: Evaluation note* Diagnosis Pain in prosthetic joint, initial encounter- Primary Primary osteoarthritis of right hip Primary localized osteoarthrosis, pelvic region and thigh documented in this encounter [facility]* Diagnosis Right hip pain- Primary Pain in joint, pelvic region and thigh Pre-op testing- Primary Preoperative examination, unspecified Essential (primary) hypertension Unspecified essential hypertension Abnormal finding of blood chemistry, unspecified Abnormal coagulation profile Tear of rotator cuff of right hip, initial encounter 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, initial encounter documented in this encounter [facility]* Diagnosis Status post revision of total hip- Primary Hip joint replacement by other means Pre-op testing Preoperative examination, unspecified Tear of rotator cuff of right hip, initial encounter 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, initial encounter Acute postoperative pain of right hip documented in this encounter [facility]* Diagnosis Tear of gluteus minimus tendon, right, initial encounter- Primary documented in this encounter [facility]* Diagnosis Right hip pain- Primary Pain in joint, pelvic region and thigh documented in this encounter [facility]* Diagnosis Onset Date Resolution Status Dysuria noneactive [facility] Work Phone: Evaluation note* Diagnosis Hx of total hip arthroplasty, right- Primary documented in this encounter [facility] note* Diagnosis Paroxysmal atrial fibrillation (CMS-HCC)- Primary Atrial fibrillation Primary hypertension Unspecified essential hypertension Chronic coronary artery disease Coronary atherosclerosis of unspecified type of vessel, three affiliated or graft [facility]* Diagnosis Paroxysmal atrial fibrillation (CMS-HCC)- Primary Atrial fibrillation Unstable angina (CMS-HCC) Intermediate coronary syndrome SOB (shortness of breath) Shortness of breath documented in [facility]* Diagnosis Hx of total hip arthroplasty, right- Primary [facility]* Diagnosis Paroxysmal atrial fibrillation (CMS-HCC) Atrial fibrillation documented in this encounter [facility]* Diagnosis Paroxysmal atrial fibrillation (CMS-HCC) Atrial fibrillation documented in this encounter [facility]* Diagnosis Primary hypertension- Primary Unspecified essential hypertension Coronary artery disease involving three affiliated coronary artery of three affiliated heart with unstable angina pectoris (CMS-HCC) documented in this encounter [facility]* Diagnosis Paroxysmal atrial fibrillation (CMS-HCC)- Primary Atrial fibrillation Benign hypertension Essential hypertension, benign documented in this encounter [facility] note* Diagnosis Paroxysmal atrial fibrillation (CMS-HCC)- Primary Atrial fibrillation Primary hypertension Unspecified essential hypertension Palpitations documented in this encounter [facility]* Diagnosis Paroxysmal atrial fibrillation (CMS-HCC) Atrial fibrillation [facility] Diagnosis Onset Date Resolution Status Admit Date Dysuria acute November 29 8:53am [facility] Work Phone: Evaluation note* Diagnosis Seborrheic keratosis, inflamed- Primary Inflamed skin tag Milia Sebaceous cyst documented in this encounter [facility] general Narrative - Reported* Type Description [...] replacement 12/16/2021 Hospitalization History SEE SURGICAL HX [facility] Other Hospital course Narrative No data available for this section [facility] Hospital Discharge instructions* Attachments The following attachments cannot be sent through Care Everywhere. * [facility] AMB SMOKING CESSATION LINKS documented in this encounterMer[facility] HospitalHospital Discharge instructions No data available for this section [facility] InstructionsNot on filedocumented in this encounter [...] available for this section [facility] (narrative)* Diagnostic Procedure Only (Routine) - Pending Review Specialty Diagnoses / Procedures Referred By Juan wren Referred To Contact [facility] Diagnoses Encounter for screening mammogram for malignant neoplasm of breast Procedures SHANE SCREENING W YAW SCREENING DIGITAL BREAST TOMOSYNTHESIS BI SCREENING MAMMOGRAPHY BI 2-VIEW BREAST INC Andrew Miguel MD [facility] [place] [address] [facility] [address] [place] [address] Referral ID Status Reason Start Date Expiration Date Visits Requested Visits Authorized [id number] Pending Review Auto-Generat ed Referral 09/26/2021 10/26/2022 1 1 [facility] for referral (narrative)* Diagnostic Procedure Only (Routine) - Pending Review Specialty Diagnoses / Procedures Referred By Juan wren Referred To Contact [facility] Diagnoses Encounter for screening mammogram for malignant neoplasm of breast Procedures SHANE SCREENING W YAW SCREENING DIGITAL BREAST TOMOSYNTHESIS BI SCREENING MAMMOGRAPHY BI 2-VIEW BREAST INC Andrew Miguel MD [facility] [place] [address] [facility] [address] [place] [address] Referral ID Status Reason Start Date Expiration Date Visits Requested Visits Authorized [id number] Pending Review Auto-Generat ed Referral 09/11/2022 10/11/[address] [facility] (Routine) Specialty Diagnoses / Procedures Referred By Contac t Referred To Contact [address] [address] Referral ID Status Reason Start Date Expiration Date Visits Re quested Visits Authorized [facility] for referral (narrative)* Consultation (Routine) - Patient to Arrange Specialty Diagnoses / Procedures Referred By Contac t Referred To Contact Physical Therapy Diagnoses Right hip pain Divine Dougherty [address] [place] [address] Referral ID Status Reason Start Date Expiration Date V isits Requested Visits Authorized [id number] Patient to Arrange 08/20/2023 09/13/2024 1 1 Scheduling Instructions . * Diagnostic X-Ray (Routine) - New Request Specialty Diagnoses / Procedures Referred By Contac t Referred To Contact Diagnoses Right hip pain Procedures XR HIP WITH PELVIS RIGHT Divine Dougherty [address] [place] [address] Referral ID Status Reason Start Date Expiration Date V isits Requested Visits Authorized [id number] New Request 08/20/2023 09/13/2024 1 1 [facility] for referral (narrative)* Diagnostic Procedure Only (Routine) - Pending Review Specialty Diagnoses / Procedures Referred By Contac t Referred To Contact [facility] Diagnoses Encounter for screening mammogram for malignant neoplasm of breast Procedures SHANE SCREENING W YAW SCREENING DIGITAL BREAST TOMOSYNTHESIS BI SCREENING MAMMOGRAPHY BI 2-VIEW BREAST INC CAD Andrew Choi MD [address] [place] [address] [place] [address] [facility] [address] [place] [address] Referral ID Status Reason Start Date Expiration Date Visits Requested Visits Authorized [id number] Pending Review Auto-Generat ed Referral 09/17/2023 10/16/[address] [facility] ([facility]ative[facility]No reason for referral information [facility]Mount [facility] Work Phone: Reason for visit Narrative* Diagnostic X-Ray (Routine) - New Request Specialty Diagnoses / Procedures Referred By Juan wren Referred To Contact Diagnoses Hx of total hip arthroplasty, right Procedures XR HIP WITH PELVIS RIGHT Paula Barrera, LOSS PREVENTION CONSULTANT-DIRECTOR OF PSYCHOLOGY [address] [place] [address] Phone: tel: fax: Referral ID Status Reason Start Date Expiration Date V isits Requested Visits Authorized [id number] New Request 07/12/2024 08/06/2025 1 1 [employer] [facility] Summary Purpose Family History No Family History Records Found Relationship Condition Age at Onset Recorded Date/T nilam father Unknown mother Unknown Advance Directives No Advanced Directives Records FoundDocuments on File Type Date Recorded Patient Header Set Up Operator Expl anation Advance Directives/Living Will 06/25/2023 9:17 AM DURABLE POWER OF DATABASE MARKETING ANALYST FOR HEALTHCARE 06/25/23 Advance Directives/Living Will 06/25/2023 [...] Documents on File Type Date Recorded Patient Header Set Up Operator Expl anation Living Will 05/21/2020 9:37 AM Durable Power of Lead Mobile Developer 05/21/2020 9:27 AM Durable Power of Lead Mobile Developer 05/16/2020 6:05 AM Living Will 05/16/2020 6:04 [...] Relationship Healthcare Agent Relationshi p Communication David Gonzalezey Spouse Health Care Agent Samantha Inman Daughter First Alternate Health Ca re Agent Healthcare Agents on File Name Relationship Healthcare Agent Relationshi p Communication David Gonzalezey Spouse Health Care Agent Samantha Inman Daughter First Alternate Health Ca re Agent Healthcare Agents on File Name Relationship Healthcare Agent Relationshi p Communication David Gonzalezey Spouse Health Care Agent Samantha Inman Daughter [...] Relationship Healthcare Agent Relationshi p Communication David Gonzalezey Spouse Health Care Agent Samantha Inman Daughter First Alternate Health Ca re Agent Healthcare Agents on File Name Relationship Healthcare Agent Relationshi p Communication David Gonzalezey Spouse Health Care Agent Samantha Inman Daughter [...] HIP WITH PELVIS RIGHT Miko Ohara MD [address] [place] [address] Referral ID Status Reason Start Date Expiration Date V isits Requested Visits Authorized [id number] New Request 11/16/2023 12/10/2024 1 1 Specialty Diagnoses / Procedures Referred By Contac t Referred To Contact Diagnoses Tear of gluteus minimus tendon, right, initial encounter Procedures XR HIP WITH PELVIS RIGHT Divine Dougherty [address] [place] [address] Referral ID Status Reason Start Date Expiration Date V isits Requested Visits Authorized [id number] New Request 07/20/2023 08/13/2024 1 1 Specialty Diagnoses / Procedures Referred By Contac t Referred To Contact Diagnoses Pain in prosthetic joint, initial encounter Procedures MRI HIP RIGHT WITHOUT CONTRAST IN MRI LOWER EXTREM JT, W/O CONTRAST Miko Ohara MD [address] [place] [address] Referral ID Status Reason Start Date Expiration Date V isits Requested Visits Authorized [id number] New Request 05/14/2023 06/07/2024 1 1 Specialty Diagnoses / Procedures Referred By Contac t Referred To Contact Diagnoses Pain in prosthetic joint, initial encounter Procedures COBALT AND CHROMIUM,WB Miko Ohara MD [address] [place] [address] Referral ID Status Reason Start Date Expiration Date V isits Requested Visits Authorized [id number] New Request 05/14/2023 06/07/2024 1 1 Specialty Diagnoses / Procedures Referred By Juan wren Referred To Contact Diagnoses Primary osteoarthritis of right hip Procedures XR HIP WITH PELVIS RIGHT Miko Ohara MD [address] [place] [address] Referral ID Status Reason Start Date Expiration Date V isits Requested Visits Authorized [id number] New Request 05/06/2023 05/30/2024 1 1 Reason *FU 11/12 [place] office Diagnosis 1 Frequent UTI (N39.0) Referral Organization [facility] Referring Provider First Name Elliot Referring Provider Last Name Raudel Referring Provider Specialty Family [facility] Referred Organization [facility] Referred Provider ALFREDA MILLER Referred Address [address] [facility] [place],[address] Referred Provider Specialty Urology Referral Priority Routine [...] section and content) DATE CREATED AUTHOR 10/28/2017 [facility] DATE CREATED AUTHOR AUTHOR'S ORGANIZ ATION 03/21/2020 [facility] DATE CREATED AUTHOR AUTHOR'S ORGANIZ ATION 09/13/[address] [facility] dical Specialist DATE CREATED AUTHOR AUTHOR'S ORGANIZ ATION 06/11/2022 [facility] DATE CREATED AUTHOR AUTHOR'S ORGANIZ ATION 11/18/2022 [facility] DATE CREATED AUTHOR AUTHOR'S ORGANIZ ATION 05/20/2023 [facility] DATE CREATED AUTHOR AUTHOR'S ORGANIZ ATION 09/19/2023 [facility] DATE CREATED AUTHOR AUTHOR'S ORGANIZ ATION 06/24/2024 [facility] DATE CREATED AUTHOR AUTHOR'S ORGANIZ ATION 06/26/2024 [facility] DATE CREATED AUTHOR AUTHOR'S ORGANIZ ATION 07/17/2024 [facility] DATE CREATED AUTHOR AUTHOR'S ORGANIZ ATION 09/13/2024 [facility] DATE CREATED AUTHOR AUTHOR'S ORGANIZ ATION 09/18/2024 [facility] DATE CREATED AUTHOR AUTHOR'S ORGANIZ ATION 11/12/2024 [facility] DATE CREATED AUTHOR AUTHOR'S ORGANIZ ATION 12/16/2024 [facility] DATE CREATED AUTHOR AUTHOR'S ORGANIZ ATION 12/28/[address] [facility] dical Specialists [facility] DATE CREATED AUTHOR AUTHOR'S ORGANIZ ATION 01/13/2025 [facility] DATE CREATED AUTHOR AUTHOR'S ORGANIZ ATION 02/03/2025 William Gong [facility] Source Comments (unrecognize d section and content) In the event this informatio n is protected by the Federal Confidentiality of Alcohol and Drug Abuse Patient Records regulations: The Federal rules restrict any use of the information to criminally investigate or prosecute any alcohol or drug abuse patient.[facility] the event this information is protected by the Federal Confidentiality of Alcohol and Drug Abuse Patient Records regulations: The Federal rules restrict any use of the information to criminally investigate or prosecute any alcohol or drug abuse patient.[facility] Hospital[facility] the event this information is protected by the Federal Confidentiality of Alcohol and Drug Abuse Patient Records regulations: The Federal rules restrict any use of the information to criminally investigate or prosecute any alcohol or drug abuse patient.[facility] the event this information is protected by the Federal Confidentiality of Alcohol and Drug Abuse Patient Records regulations: The Federal rules restrict any use of the information to criminally investigate or prosecute any alcohol or drug abuse patient.[facility] Reason for Visit (unrecogniz ed section and content) Reason Comments Radiology Mammogram Reason Comments Lab Orders Reason Comments Orders Specialty Diagnoses / Procedures Referred By Contac t Referred To Contact Diagnoses Primary osteoarthritis of right hip Procedures XR HIP WITH PELVIS RIGHT Miko Oahra MD [address] [place] [address] Referral ID Status Reason Start Date Expiration Date V isits Requested Visits Authorized [id number] New Request 05/06/2023 05/30/2024 1 1 Reason Comments Pain Reason Comments MRI Results Specialty Diagnoses / Procedures Referred By Russac t Referred To Contact Diagnoses Tear of rotator cuff of right hip, initial encounter 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, initial encounter Tear of rotator cuff of right hip, initial encounter [S76.011A] 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, initial encounter [T84.090A] Procedures IN PELVIS/HIP JOINT SURGERY UNLISTED IN REVISE TOTAL HIP REPLACEMENT GLUTEUS MEDIUS TENDON REPAIR REVISION ARTHROPLASTY HIP BOTH ACETABULAR & FEMORAL COMPONENTS Miko Ohara MD [address] [place] [address] Referral ID Status Reason Start Date Expiration Date Visits Re quested Visits Authorized [id number] 06/19/2023 1 1 Reason Comments Post Op Visit Specialty Diagnoses / Procedures Referred By Contac t Referred To Contact Diagnoses Tear of gluteus minimus tendon, right, initial encounter Procedures XR HIP WITH PELVIS RIGHT Divine Dougherty [address] [place] [address] Referral ID Status Reason Start Date Expiration Date V isits Requested Visits Authorized [id number] New Request 07/20/2023 08/13/2024 1 1 Reason Comments Follow-up Specialty Diagnoses / Procedures Referred By Contac t Referred To Contact Diagnoses Right hip pain Procedures XR HIP WITH PELVIS RIGHT Divine Dougherty [address] [place] [address] Referral ID Status Reason Start Date Expiration Date V isits Requested Visits Authorized [id number] New Request 08/20/2023 09/13/2024 1 1 Reason Comments Yearly Exam With Mammogram Reason Comments Pain Specialty Diagnoses / Procedures Referred By Contac t Referred To Contact Diagnoses Hx of total hip arthroplasty, right Procedures XR HIP WITH PELVIS RIGHT Miko Ohara MD [address] [place] [address] Referral ID Status Reason Start Date Expiration Date V isits Requested Visits Authorized [id number] New Request 11/16/2023 12/10/2024 1 1 Reason [...] Care Teams (unrecognized sec tion and content) Radiotelegraphist Relationship Specialty Start Date End Date Elliot Starks MD [address] [place] [address] PCP - General Family Practice 11/26/15 Radiotelegraphist Relationship Specialty Start Date End Date Elliot Starks MD [address] [place] [address] PCP - General Family Practice 11/26/15 Radiotelegraphist Relationship Specialty Start Date End Date Elliot Starks MD [address] [place] [address] PCP - General Family Medicine 11/26/15 Team Status: Inactive Member Role Status Dates Elliot Starks MD Attending Provider Active Radiotelegraphist Relationship Specialty Start Date End Date Elliot Starks MD [address] [place] [address] [place] [address] PCP - General Family Medicine 05/11/23 Radiotelegraphist Relationship Specialty Start Date End Date Elliot Starks MD [address] [place] [address] [place] [address] PCP - General Family Medicine 05/11/23 Radiotelegraphist Relationship Specialty Start Date End Date Elliot Starks MD [address] [place] [address] [place] [address] PCP - General Family Medicine 05/11/23 Radiotelegraphist Relationship Specialty Start Date End Date Elliot Starks MD [address] [place] [address] [place] [address] PCP - General Family Medicine 05/11/23 Radiotelegraphist Relationship Specialty Start Date End Date Elliot Starks MD [address] [place] [address] [place] [address] PCP - General Family Medicine 05/11/23 Radiotelegraphist Relationship Specialty Start Date End Date Elliot Starks MD [address] [place] [address] [place] [address] PCP - General Family Medicine 05/11/23 Radiotelegraphist Relationship Specialty Start Date End Date Elliot Starks MD [address] [place] [address] [place] [address] PCP - General Family Medicine 05/11/23 Radiotelegraphist Relationship Specialty Start Date End Date Elliot Starks MD [address] [place] [address] [place] [address] PCP - General Family Medicine 05/11/23 Radiotelegraphist Relationship Specialty [place] [address] [place] [address], [place] [address] PCP - General Family Medicine 11/26/15 Team [...] May 09, 2024 End: May 09, 2024 Radiotelegraphist Relationship Specialty Start Date End Date Elliot Starks MD [address] [place] [address] [id number] PCP - General 03/17/17 Radiotelegraphist Relationship Specialty [place] [address] [place] [address] [id number] PCP - General 07/15/23 Radiotelegraphist Relationship Specialty [place] [address] [place] [address] PCP - General 03/17/17 Radiotelegraphist Relationship Specialty [place] [address] [place] [address] PCP - General 11/14/17 Radiotelegraphist Relationship Specialty Start Date End Date Elliot Starks MD [address] [place] [address] PCP - General 07/15/23 Radiotelegraphist Relationship Specialty [place] [address] [place] [address] PCP - General 07/15/23 Radiotelegraphist Relationship Specialty Start Date End Date Elliot Starks MD [address] [place] [address] PCP - General 07/15/23 Team Status: Active Member Role Status Dates Elliot Starks MD Primary Care Provide r, Attending Provider Active Start: May 11, 2024 Team Status: Inactive Member Role Status Dates Elliot Starks MD Primary Care Provider Active Start: June 21, 2024 End: June 21, 2024 Chinedu Farley DO Attending Provider Active Sta rt: June 21, 2024 End: June 21, 2024 Radiotelegraphist Relationship Specialty Start Date End Date Elliot Starks MD [address] [place] [address] PCP - General Family Medicine 05/11/23 Radiotelegraphist Relationship Specialty Start Date End Date Elliot Starks MD [address] [place] [address] PCP - General Family Medicine 05/11/23 Radiotelegraphist Relationship Specialty [place] [address] [place] [address] [id number] PCP - General 07/15/23 Radiotelegraphist Relationship Specialty [place] [address] [place] [address] PCP - General 07/15/23 Radiotelegraphist Relationship Specialty Start Date End Date Elliot Starks MD [address] [place] [address] PCP - General 07/15/23 Radiotelegraphist Relationship Specialty Start Date End Date Elliot Starks MD [address] [place] [address] PCP General 07/15/23 Team Status: Inactive Member Role Status Dates Elliot Starks MD Primary Care Provider Active Start: November 29, 2024 End: November 29, 2024 Elliot Starks MD Attending Provider Active St art: November 29, 2024 End: November 29, 2024 Radiotelegraphist Relationship Specialty Start Date End Date Elliot Starks MD PCP - General Family Medicine 09/26/22 Radiotelegraphist Relationship Specialty Start Date End Date Elliot [...] December 29, 2024 End: December 29, 2024 Radiotelegraphist Relationship Specialty Start Date End Date Elliot Starks MD [address] [place] [address] PCP - General 07/15/23 Radiotelegraphist Relationship Specialty Start Date End Date Elliot Starks MD [address] [place] [address] PCP - General 07/15/23 Goals (unrecognized section [...] 181 (Given - Provider: Marcella Lozano RN) 09 [...] RN)1514 ($$New Bag$$ - Provider: Damián Saenz APRN-BUSINESS INTELLIGENCE ETL DEVELOPER)1647 (Stopped - Provider: Aidee Field RN) Sodium [...] e 07/07/23 at 1003, Until 07/07/23 at 1043, See admin instructions, Administer 1 hour preop., Pre-op/Pre-Proc 1043 (Given - Provider: Chelsea lBedsoe RN) bisacodyl (DULCOLAX) suppository 10 mg 10 mg, Rectal, DAILY NEEDED, Starting on e 07/07/23 at 1637, Until Thu07/08/23 at 1920, constipation, Post-op/Post-Proc ceFAZolin (ANCEF) 2 g in dextrose 100 mL premix IVPB (COMPLETED) 2 g, Intravenous, Administer over 15 Minutes, SPECIAL SYSTEMS TECHNICIAN TO PROCEDURE, 1 dose, Starting on Thu07/07/23 at 1003, Until 07/07/23 at 1409, Other, Pre-operative antibiotic, Pre-op/Pre-Proc 1354 (Given - Provider: Melchor Holocmb LOSS PREVENTION CONSULTANT-[facility]) HYDROmorphone (DILAUDID) injection 0.5 mg 0.5 mg, Intravenous, EVERY 4 HOURS NEEDED, Starting on 07/07/23 at 1637, Until 07/08/23 at 1920, Severe Pain, Post-op/Post-Proc Ondansetron 4mg/2ml (ZOFRAN) injection 4 mg 4 mg, Intravenous, EVERY 4 HOURS NEEDED, Starting on 07/07/23 at 1637, Until 07/08/23 at 1920, Nausea / Vomiting, Post-op/Post-Proc 0612 (Given - Provid er: Aidee Field RN) oxyCODONE (ROXICODONE) tablet 5-10 mg 5-10 mg, Oral, EVERY 4 HOURS NEEDED, Starting on 07/07/23 at 1637, Until Thu07/08/23 at 1920, [...] BE BASED ON THE PRIMARY CLINICAL RECORDS. [facility]. provides no warranty or guarantee of the accuracy or completeness of information in this document.
[2025-02-03 10:12] LABS: Anion Gap 10.4; Blood Urea Nitrogen 34.0 mg/dL (7.0-18.0); Calcium 10.0 mg/dL (8.5-10.1); Carbon Dioxide 35.2 mmol/L (21.0-32.0); Chloride 101 mmol/L (98-107); Estimated GFR (African America 51 (>=60 mL/min/1.73m^2); Estimated GFR (Non-African Ame 42 (>=60 mL/min/1.73m^2); Glucose 101 mg/dL (74-106); Potassium 3.6 mmol/L (3.5-5.1); Sodium 143 mmol/L (136-145)
[2025-02-03 10:18] LABS: Hematocrit 41.7 % (36.0-48.0); Hemoglobin 13.9 g/dL (12.0-16.0); Immature Granulocytes Abs Auto 0.02 10^3/uL (0.00-0.03); Immature Granulocytes Pct Auto 0.3 % (0.0-0.5); Lymphocytes Absolute Auto 2.5 10^3/uL (1.2-3.8); Mean Corpuscular HGB Conc 33.3 g/dL (29.9-35.2); Mean Corpuscular Hemoglobin 32.3 pg (26.7-34.0); Mean Corpuscular Volume 96.8 fL (81.0-99.0); Platelet Count 286 10^3/uL (150-450); Red Blood Count 4.31 10^6/uL (4.20-5.40); White Blood Count 7.9 10^3/uL (4.0-11.0)
== END 2025-02-03 09:30 | disposition home or self-care (01) ==
LOC: LAB 09:33
PROVIDERS: PCP Family Medicine; Visit Provider Family Medicine
DX: R55 Syncope and collapse (principal); E87.6 Hypokalemia
CPT/HCPCS: 36415; 80048; 85025

== ENCOUNTER 2025-02-13 08:00 | Outpatient (OUT) | payer MEDICARE, SELFPAY ==
--- OUTSIDE RECORDS SUMMARY | 2025-02-03 20:10 | XMS_ITS | Continuity of Care Document ---
Author Organization [facility] Address [address] [place] [address] Phone Care Team Providers Care Aprn Name Role Phone Marine Glass MD Primary Care Provider Marine Glass MD Attending Provider Tyshawn Snow DO Attending Provider Unavailable Ayanna Saini CMA Attending Provider Ian Berumen DO Attending Provider [phone] Marine Glass MD Other Provider [phone] Marisa Willis MD Attending Provider Care Teams Patient Care Team [...] December 29, 2024 End: December 29, 2024 Visit Care Team Team Status: Active Member Role Status Dates Marine Glass MD Primary Care Provider Active Start: January 29, 2025 Ian Connell DO Attending Provider Active S tart: January 29, 2025 Visit Care Team Team Status: Active Member Role Status Dates Marine Glass MD Primary Care Provider Active Start: January 31, 2025 Ayanna Saini CMA Attending Provider Active Start: January 31, 2025 Visit Care Team Team Status: Inactive Member [...] Start: February 03, 2025 Marine Glass MD Other Provider Active Start: February 03, 2025 Marisa Willis MD Attending Provider Active Sta rt: February 03, 2025 Chief Complaint and Reason [...] Syncopal episodes December 29, 2024 10 :23am Essential hypertension February 03, 2025 8:17am Hypokalemia February 03, 2025 8: 17am Insomnia February 03, 2025 8: 17am Syncopal episodes [...] bedtime December 16, 2023 10:36a m Septe er 2023 2:55p m Omeprazole 40 mg capsule,del ayed release(DR/ EC) Discont inued 0 .ROUTE .COMPLEX 180 December 22, 2023 11:13a m Dece fariha 2023 11:34 am TAKE 2 CAPSULES DAILY Temazepam 30 mg capsule Discont inued 30 MG PO Daily at bedtime Janem fariha 2023 2:55pm [facility] 2023 11:47 am Temazepam 30 mg capsule Discont inued 30 MG PO Daily at bedtime Febobe r 2023 9:26am Novem fariha 2023 9:35a m Temazepam 30 mg capsule Discont inued 30 MG PO Daily at bedtime Novemb er 2023 9:35am Dece fariha 2023 10:58 am Lisinopril 20 mg tablet Active 0 .ROUTE .COMPLEX 90 Novemb er 2023 5:38pm TAKE 1 TABLET DAILY Unknown Temazepam 30 mg capsule Discont inued 30 MG PO Daily at bedtime 30 30 Decemb er 2023 10:58a m [facility] ry 2024 10:49 am Sumatriptan Succinate 25 [...] needed for insomnia November 15, 2024 3:54pm 2024 8:29a m Omeprazole 40 mg capsule,del [...] inued 4 MG PO .COMPLEX 2023 1:00am 2023 2:31p m 4 mg orally; Hydrochloro thiazide 25 mg tablet Active 25 MG PO Daily 2023 1:00am Unknown Apixaban (Eliquis) 5 mg tablet Discont inued 5 MG PO Once 2023 1:00am [facility] fariha 2023 11:34 am Ketorolac 10 mg tablet Discont inued 10 MG PO Once 2023 1:00am Febru hayden 2023 2:31p m Lisinopril 20 mg tablet Discont inued 20 MG PO Daily 2023 1:00am [facility] fariha 2023 5:38p m Omeprazole 40 mg capsule,del ayed release(DR/ EC) Discont inued 40 MG PO Daily 2023 1:00am Augus t 2023 11:13 am Baclofen 10 mg tablet Active 10 MG PO Daily 2023 1:00am Unknown Trospium 20 mg tablet Active 20 MG PO Twice daily 2023 2:33pm Unknown Apixaban (Eliquis) 5 mg tablet Active 5 MG PO Twice daily [facility] er 2023 11:32a m Unknown Omeprazole 40 mg capsule,del ayed release(DR/ EC) Discont inued 40 MG PO Daily [facility] er 2023 11:33a m Augus t 2024 8:22a m Azithromyci n 250 mg tablet Discont inued 0 PO .COMPLEX 6 [facility] 2023 1:00am May 2024 10:21 am For 250 mg dose pack: take 500 mg today (day 1), then 250 mg for 4 days (days 2-5) PO Prednisone 20 mg tablet Discont inued 20 MG PO Daily 3 3 [facility] 2023 1:00am May 2024 10:21 am Potassium Chloride (Klor-Con M20) [...] Three times daily 21 11December 29, 2024 12:00a m Octob er 2024 [...] 30 MG PO Daily at bedtime 30 2023 11:46a m Octob er 2023 9:27a m Trazodone 50 mg tablet Discont inued 50 MG PO Daily at bedtime as needed for insomnia 30 y 2024 1:00am Febru hayden 2024 1:44p m Nitrofurant oin Macrocrysta l 100 mg capsule Discont inued 100 MG PO Twice daily November 29, 2024 12:00a m Augus t 2024 11:00 am must administer with a meal/food Immunizations Immunization Event Date Not Given Reason Dose Number Geoscientist Lot Number Vaccine Information Statement (VIS) Detail [...] 2025 4:30pm NONE SEEN #/LPF NONE SEEN Basophil s # (Auto) February 03, 2025 9:45am February 03, 2025 9:45am 0.1 10 3/uL 0.0-0.1 Anion Gap February 03, 2025 9:45am February 03, 2025 9:45am 10.4 Urine Appearan ce November 29, 2024 9:19am [...] with VKA drugs, such as warfarin, the [place] [employer] 2012 Guideline recommends [...] 2.5 to 3.5 (target INR of 3).Indy GARCIA, et al. Chest 2012, 141:7S-47SN ishbrittany RA, et al. JAC 2017, 70: 252-289 Basophil s (%) (Auto) [...] 2025 4:30pm None Seen #/HPF None Seen Basophil s (%) (Auto) February 03, 2025 9:45am February 03, 2025 9:45am 1.3 % 0.2-2.0 BUN/Crea tinine Ratio February 03, 2025 9:45am February 03, 2025 9:45am 27.4 Urine Specific [place] November 29, 2024 9:19am November 29, 2024 9:21am 1.015 Aspartat e Amino Transf (AST/SGO T) December 18, 2024 8:39pm December 18, 2024 8:39pm 16 U/L 13-35 Eosinoph ils # (Auto) December 18, 2024 8:39pm December 18, 2024 8:39pm 0.34 k/uL <0.46 Urine Bilirubi n December 19, 2024 12:06am December 19, 2024 12:06am Negative Negative Urine Specific [place] December 29, 2024 10:57am December 29, 2024 [...] Abnormal (applies to non-numeric results) NONE SEEN Eosinoph ils # (Auto) February 03, 2025 9:45am February 03, 2025 9:45am 0.3 10 3/uL 0.0-0.7 Blood Urea Nitrogen February 03, 2025 9:45am February 03, 2025 9:45am 34.0 mg/dL Above high normal 7.0-18.0 Urine pH November 29, 2024 9:19am November [...] n January 29, 2025 4:30pm NEGATIVE NEGATIVE Eosinoph ils (%) (Auto) February 03, 2025 9:45am February 03, 2025 9:45am 3.7 % 0.9-7.0 Calcium Level February 03, 2025 9:45am February 03, 2025 9:45am 10.0 mg/dL 8.5-10.1 Urine Leukocyt e Esterase November 29, 2024 9:19am November 29, 2024 9:21am negative Carbon Dioxide Level December 18, 2024 8:39pm December 18, 2024 8:39pm 24 mmol/L -30 Hemoglob in December 18, 2024 8:39pm December [...] Blood January 29, 2025 4:30pm NEGATIVE NEGATIVE Hematocr it February 03, 2025 9:45am February 03, 2025 9:45am 41.7 % 36.0-48.0 Chloride Level February 03, 2025 9:45am February 03, 2025 9:45am 101 mmol/L 98-107 Urine Nitrite November 29, 2024 9:19am November [...] ce January 29, 2025 4:30pm CLEAR CLEAR Hemoglob in February 03, 2025 9:45am February 03, 2025 9:45am 13.9 g/dL 12.0-16.0 Carbon Dioxide Level February 03, 2025 9:45am February 03, 2025 9:45am 35.2 mmol/L Above high normal 21.0-32.0 Urine Protein November 29, 2024 9:19am November [...] Color January 29, 2025 4:30pm YELLOW YELLOW Immature Granuloc yte # (Auto) February 03, 2025 9:45am February 03, 2025 9:45am 0.02 10 3/uL 0.00-0.03 Creatini ne February 03, 2025 9:45am February 03, 2025 9:45am 1.24 mg/dL Above high normal 0.55-1.02 Urine Glucose (UA) November 29, 2024 9:19am Ryanne 29th, 2025 9:21am negative Glucose Level December 18, 2024 8:39pm December 18, 2024 8:39pm 153 mg/dL Above high normal 74-99 The [place] [employer] Association (ADA) provides guidance for cutoff [...] Standards of Medical Care in Diabetes 2016, [place] [employer] . Diabetes Care. 2016.39(Sup pl [...] January 29, 2025 4:30pm NEGATIVE mg/dL NEGATIVE Immature Granuloc yte % (Auto) February 03, 2025 9:45am February 03, 2025 9:45am 0.3 % 0.0-0.5 Estimate d GFR ( ) February 03, 2025 9:45am February 03, 2025 9:45am 51 Below low normal >=60 mL/min/1.7 3m 2 Urine Ketones November 29, 2024 9:19am November [...] 10:59am negative Estimate d GFR (Non-Afr ican Congolese December 29, 2024 11:18am December 29, 2024 11:18am 56 Below low normal >=60 mL/min/1.7 3m 2 Calcium Level January 29, 2025 2:49pm 9.7 mg/dL 8.5-10.1 Lymphocy abhijeet # (Auto) January 29, 2025 2:49pm January 29, 2025 2:49pm 2.9 10 3/uL 1.2-3.8 Urine Ketones January 29, 2025 4:30pm NEGATIVE mg/dL NEGATIVE Lymphocy abhijeet # (Auto) February 03, 2025 9:45am February 03, 2025 9:45am 2.5 10 3/uL 1.2-3.8 Estimate d GFR (Non-Afr ican Congolese February 03, 2025 9:45am February 03, 2025 9:45am 42 Below low normal >=60 mL/min/1.7 3m 2 Urine Urobilin ogen November 29, 2024 9:19am [...] Esterase January 29, 2025 4:30pm NEGATIVE NEGATIVE Lymphocy abhijeet (%) (Auto) February 03, 2025 9:45am February 03, 2025 9:45am 32.2 % 20.5-60.0 Glucose Level February 03, 2025 9:45am February 03, 2025 9:45am 101 mg/dL 74-106 Urine Bilirubi n November 29, 2024 9:19am [...] Abnormal (applies to non-numeric results) NONE SEEN Mean Corpuscu lar Hemoglob in February 03, 2025 9:45am February 03, 2025 9:45am 32.3 pg 26.7-34.0 Potassiu m Level February 03, 2025 9:45am February 03, 2025 9:45am 3.6 mmol/L 3.5-5.1 Urine Occult Blood November 29, 2024 9:19am [...] normal 0.55-1.02 Mean Corpuscu lar Hemoglob in [facility] January 29, 2025 2:49pm January 29, 2025 2:49pm 33.9 g/dL 29.9-35.2 Urine Nitrite January 29, 2025 4:30pm NEGATIVE NEGATIVE Mean Corpuscu lar Hemoglob in [facility] February 03, 2025 9:45am February 03, 2025 9:45am 33.3 g/dL 29.9-35.2 Sodium Level February 03, 2025 9:45am February 03, 2025 9:45am 143 mmol/L 136-145 Alkaline Phosphat ase December 18, 2024 8:39pm December 18, 2024 8:39pm 55 U/L 34-123 Mean Corpuscu lar Hemoglob in December 18, 2024 8:39pm December 18, 2024 8:39pm 32.5 pg 26.0-34.0 Urine Specific [place] December 19, 2024 12:06am December 19, 2024 12:06am 1.028 1.005-1.03 0 Estimate d GFR ( ) January 29, 2025 2:49pm 37 Below low normal >=60 mL/min/1.7 3m 2 Mean Corpuscu lar Volume January 29, 2025 2:49pm January 29, 2025 2:49pm 96.7 fL 81.0-99.0 Urine pH January 29, 2025 4:30pm 5.5 5.0-9.0 Mean Corpuscu lar Volume February 03, 2025 9:45am February 03, 2025 9:45am 96.8 fL 81.0-99.0 Calcium Level December 18, 2024 8:39pm December 18, 2024 8:39pm 9.4 mg/dL 8.5-10.2 Mean Corpuscu lar Hemoglob in [facility] December 18, 2024 8:39pm December 18, 2024 8:39pm 33.3 g/dL 30.5-36.0 Urine Urobilin ogen December 19, 2024 12:06am December 19, 2024 12:06am Normal Normal Estimate d GFR (Non-Afr ican Congolese January 29, 2025 2:49pm 31 Below low normal >=60 mL/min/1.7 3m 2 Monocyte s # (Auto) January 29, 2025 2:49pm January 29, 2025 2:49pm 0.7 10 3/uL 0.3-0.8 Urine Protein January 29, 2025 4:30pm NEGATIVE mg/dL NEG/TRACE Monocyte s # (Auto) February 03, 2025 9:45am February 03, 2025 9:45am 0.8 10 3/uL 0.3-0.8 Anion Gap December 18, 2024 8:39pm December [...] #/HPF Abnormal (applies to non-numeric results) 0-2 Monocyte s (%) (Auto) February 03, 2025 9:45am February 03, 2025 9:45am 10.4 % 1.7-12.0 Estimate d GFR (CKD-EPI ) December 18, [...] fL Below low normal 9.5-13.5 Urine Specific [place] January 29, 2025 4:30pm 1.020 1.005-1.02 5 Mean Platelet Volume February 03, 2025 9:45am February 03, 2025 9:45am 8.8 fL Below low normal 9.5-13.5 Hematocr it December 18, 2024 8:39pm December [...] #/LPF Abnormal (applies to non-numeric results) NONE/RARE Neutroph ils # (Auto) February 03, 2025 9:45am February 03, 2025 9:45am 4.1 10 3/uL 1.4-6.5 Monocyte s (%) (Auto) December 18, 2024 8:39pm December 18, 2024 8:39pm 9.4 % Sodium Level January 29, 2025 2:49pm 142 mmol/L 136-145 Neutroph ils (%) (Auto) January 29, 2025 2:49pm January 29, 2025 2:49pm 45.8 % 43.0-75.0 Urine Urobilin ogen January 29, 2025 4:30pm 0.2 EU/dL 0.2-1.0 Neutroph ils (%) (Auto) February 03, 2025 9:45am February 03, 2025 9:45am 52.1 % 43.0-75.0 Correcte d White Blood Count December 18, 2024 8:39pm December 18, 2024 8:39pm 7.47 k/uL 3.70-11.00 Total Bilirubi n January 29, 2025 2:49pm 0.7 mg/dL 0.2-1.0 Platelet Count January 29, 2025 2:49pm January 29, 2025 2:49pm 273 10 3/uL 150-450 Urine WBC January 29, 2025 4:30pm 2-5 #/HPF Abnormal (applies to non-numeric results) NONE SEEN Platelet Count February 03, 2025 9:45am February 03, 2025 9:45am 286 10 3/uL 150-450 Nucleate d RBC Relative Count (auto) December 18, 2024 8:39pm December 18, 2024 8:39pm 0.0 /100{WBC} Total Protein January 29, 2025 2:49pm 7.9 g/dL 6.4-8.2 Red Blood Count January 29, 2025 2:49pm January 29, 2025 2:49pm 4.18 10 6/uL Below low normal 4.20-5.40 Red Blood Count February 03, 2025 9:45am February 03, 2025 9:45am 4.31 10 6/uL 4.20-5.40 Red Cell Distribu tion Width December 18, 2024 8:39pm December 18, 2024 8:39pm 11.9 % 11.5-15.0 Red Cell Distribu tion Width January 29, 2025 2:49pm January 29, 2025 2:49pm 11.8 % 11.0-15.0 Red Cell Distribu tion Width February 03, 2025 9:45am February 03, 2025 9:45am 11.7 % 11.0-15.0 Mean Platelet Volume December 18, 2024 8:39pm December 18, 2024 8:39pm 8.7 fL Below low normal 9.0-12.7 Correcte d White Blood Count January 29, 2025 2:49pm January 29, 2025 2:49pm 7.7 10 3/uL 4.0-11.0 Correcte d White Blood Count February 03, 2025 9:45am February 03, 2025 9:45am 7.9 10 3/uL 4.0-11.0 Differen tial Comment December [...] 10:27am BP Diastolic 69 mm[Hg] 60-100 December 29 10:27am BMI (Body Mass Index) 29.1 kg/m2 December 29, 2024 10:27am Height 65 [in_i] February 03 8:21am Weight 77.56 kg February 03 8:21am Heart Rate 61 /min 60-100 February 03 8:21am BP Systolic 102 mm[Hg] 100-140 February 03 8:21am BP Diastolic 72 mm[Hg] 60-100 February 03 8:21am BMI (Body Mass Index) 28.4 kg/m2 Octobe r 2024 8:21am Advance Directives Advance Directive Response Recorded Date/ Time Advance Directives No November 17 6:19pm Insurance Providers Guarantor Bettie Burns Address [address] [place] [phone] Contact Info. Home Phone: Payer Policy Id Subscriber's Name Subscriber Id Effectiv e Date Expiration Date [employer] [facility] [id number] Bettie Ortiz Grant [id number] Encounters Encounter Location(s) Arrival/Admit Date Discharge/Depart Date Provider(s) Departed Physician/Prov ider Office Visit -[facility] November 29, 2024 8:53am November 29, 2024 9:42am Marine Glass MD Non-patient / Non-visit -[facility] [employer] [employer] December 18, 2024 8:39pm Evie Cantu DO Non-patient / Non-visit -[facility] December 19, 2024 12:06am Evie Cantu DO Non-patient / Non-visit -[facility] December 19, 2024 10:38am Ayanna Saini CMA Departed Physician/Prov ider Office Visit -[facility] December 29, 2024 10:23am December 29, 2024 11:02am Marine Glass MD Non-patient / Non-visit -[facility] January 29, 2025 2:49pm Evie Larry DO Non-patient / Non-visit -[facility] January 31, 2025 8:46am Ayanna Saini CMA Departed Physician/Prov ider Office Visit -[facility] February 03, 2025 8:17am February 03, 2025 9:17am Marine Glass MD Non-patient / Non-visit -[facility] February 03, 2025 8:52am Marisa Willis MD Recent Diagnosis Onset Date Admit Date Dysuria Unknown November 29, 2024 8:53am CKD stage 3a, GFR 45-59 ml/min Unknown A 2024 10:23am Dysuria Unknown December 29 10:23am Exudative age-related macula r degeneration, bilateral, stage unspecified Unknown December 29, 2024 10:23am Hypokalemia Unknown December 29 10:23am Paroxysmal atrial fibrillation Unknown A ug2024 10:23am Syncopal episodes Unknown December 29 10:23am Essential hypertension Unknown February 032024 8:17am Hypokalemia Unknown February 03 8:17am Insomnia Unknown February 03 8:17am Syncopal episodes Unknown February 03 8:17am Assessments Diagnosis Onset Date Resolution Status Admit Date Dysuria acute November 29 8:53am CKD stage 3a, GFR 45-59 ml/min acute December 29, 2024 10:23am Dysuria acute December 29 10:23am Exudative age-related macula r degeneration, bilateral, stage unspecified acute December 29 10:23am Hypokalemia acute December 29, 2024 10:23am Paroxysmal atrial fibrillation acute December 29, 2024 10:23am Syncopal episodes acute December 29, 2024 10:23am Essential hypertension acute Oc 2024 8:17am Hypokalemia acute February 03, 2025 8:17am Insomnia acute February 03 8:17am Syncopal episodes acute February 03, 2025 8:17am Plan of Treatment Author Marine Glass [facility] Authored January 03, 2025 10:05am Check renal [...] symptoms for 1-2 days prior to event. Author Marine Glass [facility] Authored February 03, 2025 9: 23am Recheck labs today. Offered zio monitor, but Bettie states she will contact her [employer]. She agrees to a Home sleep test. Order written for [facility]. EKG in office shows sinus bradycardia and a first degree block. Future Tests Future scheduled test information is unavailable Pending Tests Pending diagnostic test information is unavailable Future Visits Future appointment information is unavailable Referrals to Other Providers Referral information is unavailable Future Procedures Future procedure information is unavailable Future Medications Future medication information is unavailable Patient Instructions Patient instructions are unavailable
--- OUTSIDE RECORDS SUMMARY | 2025-02-14 08:39 | XMS_ITS | Encounter Summary ---
Author Organization [facility] Sys [facility] Address [id number] [address] [place] [address] Care Team Providers Care Pattern Hanger Name Role Phone Marine Glass MD Primary Care Provider Encounter Details Date Type Department Care Team (Late st Contact Info) Description 06/26/2023 Orders Only [facility] [address] [place] [phone] External, Scanning Provider Social History Tobacco Use [...] Care Team (Late st Contact Info) Description 02/23/2025 2:45 PM EDT Office Visit [facility] [address] [place] [address] Joshua Zhu MD [address] [place] [address] documented as of this encounter Procedures Procedure Name Priority Date/Time Associated Diagnosis Comments MULTIPLE LABS Routine 06/26/2023 4:10 PM EST ECG 12-LEAD Routine 06/26/2023 4:09 PM EST documented in this encounter Results * Multiple labs (06/26/2023 4:10 PM EST) us Scanning Provider External [facility] Final Result Performing Organization Address [facility] Co de Phone Number MANUALLY TRANSCRIBED RESULTS * ECG 12 lead (06/26/2023 4:09 PM EST) us Scanning Provider External ECG ORDERABLES Final Result Performing Organization Address [facility] de Phone Number MANUALLY TRANSCRIBED RESULTS documented in this encounter Visit Diagnoses Not on filedocumented in this encounter Additional Health Concerns Assessment Noted Time PHQ-9 Depression Total Score: 0 04/24/20 20 10:41 AM EST documented as of this encounter Care Teams Pattern Hanger Relationship Specialty [place] [address] [place] [id number] PCP - General 07/15/23 documented as of this encounter
--- OUTSIDE RECORDS SUMMARY | 2025-02-14 08:39 | XMS_ITS | Encounter Summary ---
Author Organization [facility] Address [id number] [address] [place] [address] Care Team Providers Care Social Work Lecturer Name Role Phone Marine Glass MD Primary Care Provider [phone] Reason for Visit * Reason Onset Date Comments Med Refill 05/26/2022 Encounter Details Date Type Department Care Team (Late st Contact Info) Description 05/26/2022 Refill [facility] [address] [place] [phone] Christine Alejandra, SUPERVISOR DELIVERY DEPARTMENT-[employer] [address] [place] [address] Med Refill Social History Tobacco Use Types [...] PM EDT Office Visit [facility] [address] [place] [phone] Joshua Zhu MD [address] [place] [address] documented as of this encounter Visit Diagnoses Not on filedocumented in this encounter Additional Health Concerns Assessment Noted Time PHQ-9 Depression Total Score: 0 04/24/20 20 10:41 AM EST documented as of this encounter Care Teams Social Work Lecturer Relationship Specialty Start Date End Date Marine Glass MD [address] [place], [place] [id number] PCP - General 07/15/23 documented as of this encounter
--- OUTSIDE RECORDS SUMMARY | 2025-02-14 08:39 | XMS_ITS | Encounter Summary ---
Author Organization [facility] Address [id number] [address] [place] [address] Care Team Providers Care Sustainable Design Coordinator Name Role Phone Marine Glass MD Primary Care Provider [phone] Encounter Details Date Type Department Care Team (Late st Contact Info) Description 12/04/2022 Orders Only [facility] [address] [place] [phone] Jacqueline Sparrow, RN Primary hypertension (Primary Dx); [...] EDT Office Visit [facility] [address] [place] [address] Joshua Zhu MD [address] [place] [address] documented as of this encounter Results * (ABNORMAL) Basic Metabolic Panel (12/29/2022 10:28 AM EDT) Sodium 143 134 - 146 mmol/L 12/29/2022 1:41 PM EDT [facility] Potassium, Bld 3.9 3.5 - 5.0 mmol/L 12/29/2022 1:41 PM EDT [facility] Chloride 103 98 - 109 mmol/L 12/29/2022 1:41 PM EDT [facility] CO2 30 22 - 32 mmol/L 12/29/2022 1:41 PM EDT [facility] Anion gap 10 5 - 15 mmol/L 12/29/2022 1:41 PM EDT [facility] BUN 23 5 - 27 mg/dL 12/29/2022 1:41 PM EDT [facility] Creatinine 1.04(H) 0.40 - 1.00 mg/dL 12/29/2022 1:41 PM EDT [facility] Comment:METHOD TRACEABLE TO IDMS STANDARD Glucose 95 65 - 99 mg/dL 12/29/2022 1:41 PM EDT [facility] Calcium 10.0 8.5 - 10.5 mg/dL 12/29/2022 1:41 PM T [facility] eGFR (CKD-EPI)non-ra ce dependent 56(L) >59 ml/min/1.7 3sq.m 12/29/2022 1:41 PM EDT [facility] Comment: Reported eGFR is based on the CKD-EPI 2020 equation that does not use a race coefficient. PLASMA 12/29/2022 10:2 8 AM EDT 12/29/2022 10:29 AM EDT us Mike Craft MD LAB BLOOD ORDERABLES Final Re sult [facility] [address] [facility] [address] [place] [address] documented in this encounter Visit Diagnoses Diagnosis Primary hypertension- Primary Unspecified essential hypertension Paroxysmal atrial fibrillation (CMS-HCC) Atrial fibrillation documented in this encounter Additional Health Concerns Assessment Noted Time PHQ-9 Depression Total Score: 0 04/24/20 20 10:41 AM EST documented as of this encounter Care Teams Sustainable Design Coordinator Relationship Specialty Start Date End Date Marine Glass MD [address] [place], [place] [phone] PCP - General 07/15/23 documented as of this encounter
--- OUTSIDE RECORDS SUMMARY | 2025-02-14 08:39 | XMS_ITS | Encounter Summary ---
Author Organization [facility] [email or web address] Sys tem Address [facility][id number] [address] [place] [address] Care Team Providers Care Train Caller Name Role Phone Marine Glass MD Primary Care Provider [phone] Encounter Details Date Type Department Care Team (Late st Contact Info) Description 07/29/2021 Orders Only [facility] [address] [place] [phone] Jacqueline Sparrow, RN Paroxysmal atrial fibrillation ([facility]) (Primary Dx) Social History Tobacco Use [...] EDT Office Visit [facility] [address] [place] [address] Joshua Zhu MD [address] [place] [address] documented as of this encounter Results * (ABNORMAL) CBC auto differential (07/29/2021 11:32 AM EDT) White Blood Cells 7.0 4.0 - 11.0 X10E9/L 07/29/2021 3:46 PM EDT [facility] RBC count 4.03 3.80 - 5.20 X10E12/L 07/29/2021 3:46 PM EDT [facility] Hemoglobin 11.7 11.7 - 15.5 g/dL 07/29/2021 3:46 PM EDT [facility] Hematocrit 35.4 35 - 47 % 07/29/2021 3:46 PM EDT [facility] MCV 88 80 - 100 fL 07/29/2021 3:46 PM EDT [facility] MCH 29.0 27 - 34 pg 07/29/2021 3:46 PM EDT [facility] MCHC 33.0 32 - 36 g/dL 07/29/2021 3:46 PM EDT [facility] RDW 15.5(H) 11.5 - 15.0 % 07/29/2021 3:46 PM EDT [facility] Platelets 247 150 - 450 X10E9/L 07/29/2021 3:46 PM EDT [facility] MPV 7.2 7 - 12 fL 07/29/2021 3:46 PM EDT [facility] % neutrophils 56.1 % 07/29/2021 3:46 PM EDT [facility] % lymphocytes 29.3 % 07/29/2021 3:46 PM EDT [facility] % monocytes 9.9 % 07/29/2021 3:46 PM EDT [facility] % eosinophils 3.7 % 07/29/2021 3:46 PM EDT [facility] % Basophils 1.0 % 07/29/2021 3:46 PM EDT [facility] Neutrophils Absolute (A) 3.9 1.5 - 6.6 X10E9/L 07/29/2021 3:46 PM EDT [facility] Lymphocytes Absolute 2.1 1.0 - 3.5 X10E9/L 07/29/2021 3:46 PM EDT [facility] Monocytes Absolute 0.7 0 - 0.9 X10E9/L 07/29/2021 3:46 PM EDT [facility] Eosinophils Absolute 0.3 0.0 - 0.4 X10E9/L 07/29/2021 3:46 PM EDT [facility] Basophils Absolute 0.1 0.0 - 0.2 X10E9/L 07/29/2021 3:46 PM EDT [facility] Blood / Unknown 07/29/2021 1 1:32 AM EDT 07/29/2021 11:33 AM EDT us Mike Burgess MD LAB BLOOD ORDERABLES Final Result [facility] [address] [facility] [place] [address] * (ABNORMAL) Basic Metabolic Panel (07/29/2021 11:32 AM EDT) Sodium 142 134 - 146 mmol/L 07/29/2021 5:13 PM EDT [facility] Potassium, Bld 4.2 3.5 - 5.0 mmol/L 07/29/2021 5:13 PM EDT [facility] Chloride 103 98 - 109 mmol/L 07/29/2021 5:13 PM EDT [facility] CO2 25 22 - 32 mmol/L 07/29/2021 5:13 PM EDT [facility] Anion gap 14 5 - 15 mmol/L 07/29/2021 5:13 PM EDT [facility] BUN 27 5 - 27 mg/dL 07/29/2021 5:13 PM EDT [facility] Creatinine 1.12(H) 0.40 - 1.00 mg/dL 07/29/2021 5:13 PM EDT [facility] Comment:METHOD TRACEABLE TO IDMS STANDARD Glucose 104(H) 65 - 99 mg/dL 07/29/2021 5:13 PM EDT [facility] Calcium 9.9 8.5 - 10.5 mg/dL 07/29/2021 5:13 PM EDT [facility] GFR MDRD Non Af Amer 48(L) >59 ml/min/1.7 3sq.m 07/29/2021 5:13 PM EDT [facility] GFR MDRD Af Amer 58(L) >59 ml/min/1.7 3sq.m 07/29/2021 5:13 PM EDT [facility] PLASMA 07/29/2021 11:3 2 AM EDT 07/29/2021 11:33 AM EDT us Mike Burgess MD LAB BLOOD ORDERABLES Final Result [facility] [address] [facility], [address] [place] [address] documented in this encounter Visit Diagnoses Diagnosis Paroxysmal atrial fibrillation (CMS-HCC)- Primary Atrial fibrillation documented in this encounter Additional Health Concerns Infection Onset Date Last Indicated Resolved Time COVID-19 Rule-Out 08/02/2021 08/02/2021 08/03/2021 1:10 AM EDT Assessment Noted Time PHQ-9 Depression Total Score: 0 04/24/20 20 10:41 AM EST documented as of this encounter Care Teams Train Caller Relationship Specialty Start Date End Date Marine Glass MD [address] [place] [address] PCP - General 07/15/23 documented as of this encounter
--- OUTSIDE RECORDS SUMMARY | 2025-02-14 08:39 | XMS_ITS | Encounter Summary ---
Author Organization [facility] Sys tem Address [id number] [address] [place] [address] Care Team Providers Care Business Education Professor Name Role Phone Marine Glass MD Primary Care Provider [phone] Encounter Details Date Type Department Care Team (Late st Contact Info) Description 07/[facility]2023 [facility] [address] [place] [address] Ari Leija Social History Tobacco [...] PM EDT Office Visit [facility] [address] [place] [phone] Joshua Zhu MD [facility] [place] [address] documented as of this encounter Visit Diagnoses Not on filedocumented in this encounter Additional Health Concerns Assessment Noted Time PHQ-9 Depression Total Score: 0 04/24/20 20 10:41 AM EST documented as of this encounter Care Teams Business Education Professor Relationship Specialty [place] [address] [place] [address] PCP - General 07/15/23 documented as of this encounter
--- OUTSIDE RECORDS SUMMARY | 2025-02-14 08:39 | XMS_ITS | Encounter Summary ---
Author Organization [facility] Sys [facility] Address [id number] [address] [place] [address] Care Team Providers Care Moss Picker Name Role Phone Marine Glass MD Primary Care Provider [phone] Encounter Details Date Type Department Care Team (Late st Contact Info) Description 08/10/2023 [facility]phone [facility] [address] [facility] [place] [address] Meredith Bernal MA Social History [...] PM EDT Office Visit [facility] [address] [place] [phone] Joshua Zhu MD [address] [place] [address] documented as of this encounter Visit Diagnoses Not on filedocumented in this encounter Additional Health Concerns Assessment Noted Time PHQ-9 Depression Total Score: 0 04/24/20 20 10:41 AM EST documented as of this encounter Care Teams Moss Picker Relationship Specialty [place] [address] [place] [address] PCP - General 07/15/23 documented as of this encounter
--- OUTSIDE RECORDS SUMMARY | 2025-02-14 08:39 | XMS_ITS | Encounter Summary ---
Author Organization [facility] Sys [facility] Address [facility][id number] [address] [place] [address] Care Team Providers Care Director Of Knowledge Management Name Role Phone Marine Glass MD Primary Care Provider [phone] Reason for Visit * Reason Comments Med Refill Encounter Details Date Type Department Care Team (Late st Contact Info) Description 03/28/2019 Refill [facility] [address] [place] [address] Miko Vasquez, LOOM WINDER TENDER-MANAGER [employer] [address] [place] [address] Med Refill Social History Tobacco Use Types [...] Notes * Telephone Encounter - Divine Kaur APRN-MANAGER [place] - 03/28/2019 12:42 AM EST Patient needs updated LFTs * Telephone Encounter - MEDINA Hernandez - 03/28/2019 12:42 AM EST Will not let me sign states it is going to the wrong pharmacy. documented in this encounter Plan of Treatment Upcoming Encounters Date Type Department Care Team (Late st Contact Info) Description 02/23/2025 2:45 PM EDT Office Visit [facility] [address] [place] [phone] Joshua Zhu MD [address] [place] [address] documented as of this encounter Results * Liver panel (04/07/2019 11:04 AM EST) Alkaline phosphatase 70 39 - 130 U/L 04/07/2019 4:18 PM [facility] AST 23 0 - 41 U/L 04/07/2019 4:18 PM [facility] ALT 14 0 - 31 U/L 04/07/2019 4:18 PM [facility] Total Bilirubin 0.4 0.3 - 1.2 mg/dL 04/07/2019 4:18 PM [facility] Bilirubin, direct 0.1 0.0 - 0.4 mg/dL 04/07/2019 4:18 PM [facility] Albumin 4.0 3.2 - 5.3 g/dL 04/07/2019 4:18 PM [facility] Total Protein 7.3 6.0 - 8.0 g/dL 04/07/2019 4:18 PM [facility] Serum / Unknown 04/07/2019 1 1:04 AM EST 04/07/2019 11:05 AM EST us Divine Kaur LOOM WINDER TENDER-MANAGER [employer]ANGE LAB BLOOD ORDERABLES Final Result [facility] [address] [facility] [address] [place] [address] documented in this encounter Visit Diagnoses Diagnosis Paroxysmal atrial fibrillation (CMS-HCC)- Primary Atrial fibrillation documented in this encounter Additional Health Concerns Infection Onset Date Last Indicated Resolved Time COVID-19 Rule-Out 05/20/2021 05/20/2021 05/20/2021 6:32 PM EST COVID-19 Rule-Out 08/02/2021 08/02/2021 08/03/2021 1:10 AM EDT documented as of this encounter Care Teams Director Of Knowledge Management Relationship Specialty Start Date End Date Marine Glass MD [address] [place] [address] PCP - General 07/15/23 documented as of this encounter
--- OUTSIDE RECORDS SUMMARY | 2025-02-14 08:39 | XMS_ITS | Encounter Summary ---
Author Organization [facility] [employer] s tem Address [facility] [place] [place][id number] [address] [place] [address] Care Team Providers Care Gear Hobber Operator Name Role Phone Marine Glass MD Primary Care Provider [phone] Reason for Visit * Reason Onset Date Comments Pre-op Exam 04/24/2020 Encounter Details Date Type Department Care Team (Late st Contact Info) Description 04/24/[address] [facility] [address] [facility] 1 [place] [address] Irene Short RN Pre-op Exam [...] EDT Office Visit [facility] [address] [place] [address] Joshua Zhu MD [facility] [place] [address] documented as of this encounter Visit Diagnoses Not on filedocumented in this encounter Additional Health Concerns Infection Onset Date Last Indicated Resolved Time COVID-19 Rule-Out 05/20/2021 05/20/2021 05/20/2021 6:32 PM EST COVID-19 Rule-Out 08/02/2021 08/02/2021 08/03/2021 1:10 AM EDT Assessment Noted Time PHQ-9 Depression Total Score: 0 04/24/20 20 10:41 AM EST documented as of this encounter Care Teams Gear Hobber Operator Relationship Specialty Start Date End Date Marine Glass MD [address] [place] [address] PCP - General 07/15/23 documented as of this encounter
--- OUTSIDE RECORDS SUMMARY | 2025-02-14 08:40 | XMS_ITS | Clinical Summary ---
Author Organization [employer] Address [id number] [address] [place] [address] Care Team Providers Care Stock Clerk Name Role Phone Marine Glass MD Primary Care Provider [phone] Allergies Active Allergy Reactions Criticality Noted Date [...] (20 mg total) before bedtime. Active vitamins A,C,X-itgi-jkeph r (ICAPS AREDS) 4,296 mcg-226 mg-90 mg [...] (07/29/2021): Added automatically from request for surgery [id number] Dyspnea 06/30/2018 Overview (06/30/2018): Added automatically from request for surgery [id number] Palpitations 06/30/2018 Overview (06/30/2018): Added automatically from request for surgery [id number] SOB (shortness of breath) 05/12/2018 Hypertension 10/06/2017 Paroxysmal atrial fibrillation 08/31/2017 Resolved Problems Problem Noted Date Diagnosed Date Resolved Date Preoperative clearance 12/29/202211/08 Unstable angina 07/29/2021 08/16/2021 Overview (07/29/2021): Added automatically from request for surgery [id number] SOB (shortness of breath) 05/12/2018 SVT (supraventricular tachycardia) 11/16/2017 12/30/2019 Encounters Date Type Department Care Team Description 02/06/2025 Orders Only [facility] [address] [place] [address] External, Scanning Provider 01/31/2025 Refill [facility] [address] [place] [address] Jovita Hernandez, HARDBOARD FACTORY WORKER-LEGAL PRACTICE MANAGER Med Refill 01/17/2025 Refill [facility] [address] [place] [address] Jovita Hernandez, HARDBOARD FACTORY WORKER-LEGAL PRACTICE MANAGER Med Refill 12/27/2024 Refill [facility] [address] [place] [address] Divine Kaur HARDBOARD FACTORY WORKER-LEGAL PRACTICE MANAGER Med Refill 11/24/2024 Refill [facility] [address] [place] [address] Jack Smith, HARDBOARD FACTORY WORKER-LEGAL PRACTICE MANAGER Med Refill 11/15/2024 Refill [facility] [address] [place] [address] Vinicio Causey PA-C Med Refill from Last 3 Months Family History Medical History Relation Name Comments Prostate cancer Brother 1 Anselmo Moon Prostate cancer Brother 2 Anselmo Moon Cancer Father Bertram Moon Lung cancer Father eBrtram Moon Arthritis Mother Marilu Moon Cancer Mother Marilu Moon Colon cancer Mother Marilu Moon Breast cancer Niece Arrhythmia Sister 1 Marine Atkinson Colon cancer Sister 1 Marine Atkinson Parkinsons Parkinsonism Sister 1 Marine Atkinson Colon cancer Sister 3 Marine Atkinson Parkinsons Relation Name Status Comments Brother 1 Anselmo Moon Alive Brother 2 Anselmo Moon Alive Father Bertram Moon Mother Marilu Moon Niece Other Sister 1 Marine Atkinson Sister 2 Leonora beltrán Alive Sister 3 Marine Atkinson Alive Social History Tobacco Use Types Packs/Day [...] 11/08/2024 8:34 AM EDT Plan of Treatment Upcoming Encounters Date Type Department Care Team (Late st Contact Info) Description 02/23/2025 2:45 PM EDT Office Visit [facility] [address] [place] [address] Joshua Zhu MD [address] [place] [address] Health Maintenance Due Date Last Done Comments Depression Screening 1957 DTaP,Tdap and Td Vaccines (1 - Tdap) 07/07/1966 Zoster (Shingles) Vaccine (1 of 2) 07/07/1997 Fall Risk Screening 07/07/2012 Colonoscopy 04/08/2022 04/08/2017, 08/18/2012 COVID-19 Vaccine (2023- 5 season) 2025 02/08/2024, 02/10/2023, 08/13/2021, Additional history exists Influenza Vaccine 01/02/2025 02/08/2024, , 02/01/2022, Additional history exists Tobacco Screening 11/08/2025 11/08/2024 Medical Devices Not on file Procedures Procedure Name Priority Date/Time Associated Diagnosis Comments MULTIPLE LABS Routine 02/03/2025 2:48 PM EDT COLONOSCOPY Routine 08/18/2012 from Last 3 Months or Most Recently Relevant to Health Maintenance Results * Multiple labs (02/03/2025 2:48 PM EDT) us Scanning Provider External [place] IMAGING Final Result MANUALLY TRANSCRIBED RESULTS * COLONOSCOPY (08/18/2012) Colonoscopy COLONOSCOPY [facility] EXTERNAL NON-INTERFACE D REF LAB us Scanning Provider External HEALTH MAINTENANCE Fi nal Result [facility] EXTERNAL NON-INTERFACED REF LAB [address] [facility] [place] [address] from Last 3 Months or Most Recently Relevant to Health Maintenance Insurance [employer] MEDICARE Advance Directives Documents on File Type Date Recorded Patient Telecommunications Specialist Expl anation Living Will 05/21/2020 9:37 AM Durable Power of Poly Packer And Heat Sealer 05/21/2020 9:27 AM Durable Power of Poly Packer And Heat Sealer 05/16/2020 6:05 AM Living Will 05/16/2020 6:04 AM Healthcare Agents on File Name Relationship Healthcare Agent Relationshi p Communication David Burns Spouse Health Care Agent Samantha Inman Daughter [facility] [place] re Agent Care Teams Stock Clerk Relationship Specialty Start Date End Date Marine Glass MD [address] [place] [address] PCP - General 07/15/23
--- OUTSIDE RECORDS SUMMARY | 2025-02-14 08:40 | XMS_ITS | Encounter Summary ---
Author Organization [facility] Sys [facility] Address [facility] [id number] [address] [place] [address] Care Team Providers Care Senior Information Security Analyst Name Role Phone Marine Glass MD Primary Care Provider [phone] Reason for Visit * Reason Onset Date Comments Med Refill 11/25/2022 Encounter Details Date Type Department Care Team (Late st Contact Info) Description 11/25/2022 Refill [facility] [address] [place] [address] Miquel Fabian, PA-C [address] [place], [place] [id number] Med Refill Social History Tobacco Use Types [...] Miscellaneous Notes * Telephone Encounter - Estela uBeno RN - 11/25/2022 3:18 PM EDT Refill was addressed yesterday and [facility] to [facility]. Pt needs labs done for further refills. documented in this encounter Plan of Treatment Upcoming Encounters Date Type Department Care Team (Late st Contact Info) Description 02/23/2025 2:45 PM EDT Office Visit [facility] [address] [place] [address] Joshua Zhu MD [address] [place] [address] documented as of this encounter Visit Diagnoses Not on filedocumented in this encounter Additional Health Concerns Assessment Noted Time PHQ-9 Depression Total Score: 0 04/24/20 20 10:41 AM EST documented as of this encounter Care Teams Senior Information Security Analyst Relationship Specialty Start Date End Date Marine Glass MD [address] [place] [address] PCP - General 07/15/23 documented as of this encounter
--- OUTSIDE RECORDS SUMMARY | 2025-02-14 08:40 | XMS_ITS | Encounter Summary ---
Author Organization [employer] s tem Address [facility][id number] [address] [place] [address] Care Team Providers Care Professor Of Business Name Role Phone Marine Glass MD Primary Care Provider [phone] Reason for Visit * Reason Onset Date Comments Med Refill 04/19/2018 Encounter Details Date Type Department Care Team (Late st Contact Info) Description 04/19/2018 Refill [facility] [address] [place] [phone] [place] [address] [place] [phone] Social History Tobacco Use Types Packs/Day Years [...] PM EDT Office Visit [facility] [address] [place] [phone] Joshua Zhu MD [address] [place] [address] documented as of this encounter Visit Diagnoses Not on filedocumented in this encounter Additional Health Concerns Infection Onset Date Last Indicated Resolved Time COVID-19 Rule-Out 05/20/2021 05/20/2021 05/20/2021 6:32 PM EST COVID-19 Rule-Out 08/02/2021 08/02/2021 08/03/2021 1:10 AM EDT documented as of this encounter Care Teams Professor Of Business Relationship Specialty Start Date End Date Marine Glass MD [facility] [place] [address] PCP - General 07/15/23 documented as of this encounter
--- OUTSIDE RECORDS SUMMARY | 2025-02-14 08:40 | XMS_ITS | Encounter Summary ---
Author Organization [facility] Sys tem Address [facility] [place][id number] [address] [place] [address] Care Team Providers Care Machine Iii Coremaker Name Role Phone Marine Glass MD Primary Care Provider [phone] Encounter Details Date Type Department Care Team (Late st Contact Info) Description 02/06/2025 Orders Only [facility] [address] [place] [phone] External, Scanning Provider Social History Tobacco Use [...] EDT Office Visit [facility] [address] [place] [address] Joshua Zhu MD [address] [place] [address] documented as of this encounter Procedures Procedure Name Priority Date/Time Associated Diagnosis Comments MULTIPLE LABS Routine 02/03/2025 2:48 PM EDT documented in this encounter Results * Multiple labs (02/03/2025 2:48 PM EDT) us Scanning Provider External ID IMAGING Final Result MANUALLY TRANSCRIBED RESULTS documented in this encounter Visit Diagnoses Not on filedocumented in this encounter Additional Health Concerns Assessment Noted Time PHQ-9 Depression Total Score: 0 04/24/20 20 10:41 AM EST documented as of this encounter Care Teams Machine Iii Coremaker Relationship Specialty Start Date End Date Marine Glass MD [address] [place] [address] PCP - General 07/15/23 documented as of this encounter
--- OUTSIDE RECORDS SUMMARY | 2025-02-14 08:40 | XMS_ITS | Encounter Summary ---
Author Organization [facility] [employer] Sys tem Address [facility] [place][id number] [address] [place] [address] Care Team Providers Care Networks Computer Consultant Name Role Phone Marine Glass MD Primary Care Provider [phone] Encounter Details Date Type Department Care Team (Late st Contact Info) Description 03/31/2022 Orders Only [facility] [address] [place] [phone] Jacqueline Sparrow, RN Hypokalemia (Primary Dx) Social [...] EDT Office Visit [facility] [address] [place] [address] Joshua Zhu MD [address] [place] [address] documented as of this encounter Results * Potassium (04/14/2022 11:19 AM EST) Potassium, Bld 3.9 3.5 - 5.0 mmol/L 04/14/2022 3:42 PM EST [facility] 04/14/2022 11:1 9 AM EST 04/14/2022 11:20 AM EST us Mike Craft MD LAB BLOOD ORDERABLES Final Re sult [facility] [address] [facility] [place] [address] documented in this encounter Visit Diagnoses Diagnosis Hypokalemia- Primary Hypopotassemia documented in this encounter Additional Health Concerns Assessment Noted Time PHQ-9 Depression Total Score: 0 04/24/20 20 10:41 AM EST documented as of this encounter Care Teams Networks Computer Consultant Relationship Specialty Start Date End Date Marine Glass MD [address] [place] [address] PCP - General 07/15/23 documented as of this encounter
--- OUTSIDE RECORDS SUMMARY | 2025-02-14 08:40 | XMS_ITS | Encounter Summary ---
Author Organization [facility] Sys [facility] Address [facility]-[id number] [address] [place] [address] Care Team Providers Care Real Estate Broker Name Role Phone Marine Glass MD Primary Care Provider [phone] Reason for Visit * Reason Comments Med Refill Encounter Details Date Type Department Care Team (Late st Contact Info) Description 01/31/2025 Refill [facility] [address] [place] [address] Jovita Hernandez, PERFORMANCE IMPROVEMENT DIRECTOR-MANAGER CHANGE [address] [place] [address] Med Refill Social History Tobacco Use Types [...] PM EDT Office Visit [facility] [address] [place] [phone] Joshua Zhu MD [facility] [place] [address] documented as of this encounter Visit Diagnoses Not on filedocumented in this encounter Additional Health Concerns Assessment Noted Time PHQ-9 Depression Total Score: 0 04/24/20 20 10:41 AM EST documented as of this encounter Care Teams Real Estate Broker Relationship Specialty Start Date End Date Marine Glass MD [address] [place], [place] [id number] PCP - General 07/15/23 documented as of this encounter
--- OUTSIDE RECORDS SUMMARY | 2025-02-14 08:40 | XMS_ITS | Encounter Summary ---
Author Organization [facility] Address [address] [place] [address] Care Team Providers Care High School Band Teacher Name Role Phone Marine Glass MD Primary Care Provider [phone] Source Comments In the event this information is protected by the Federal Confidentiality of Alcohol and Drug AbusePatient Records regulations: The Federal rules restrict any use of the information to criminally investigate or prosecute any alcohol or drug abuse patient.[facility] Encounter Details Date Type Department Care Team (Late st Contact Info) Description 12/21/2024 Results Follow-Up [facility] [address] [place], [place] [id number] Sara White [facility] Social History Tobacco Use Types Packs/Day Years [...] is lower risk 4 12/19/2024 Data from: https://www.neighborhoodatlas.medicine.[facility].edu/. Last address used for calculation [address] 12/19/2024 Comments No Sex and Gender Information Value Date Recorded Sex Assigned at Not on file Legal Sex Female 8:44 AM EST Gender Identity Not on file Sexual Orientation Not on file documented as of this encounter Plan of Treatment Not on file documented as of this encounter Visit Diagnoses Not on filedocumented in this encounter Care Teams High School Band Teacher Relationship Specialty Start Date End Date Marine Glass MD [address] [place] [id number] PCP - General Family Medicine 11/26/15 documented as of this encounter
--- OUTSIDE RECORDS SUMMARY | 2025-02-14 08:40 | XMS_ITS | Encounter Summary ---
Author Organization [facility] [employer] Address [id number] [address] [place] [address] Care Team Providers Care Balance Screwhead Polisher Name Role Phone Marine Glass MD Primary Care Provider [phone] Reason for Visit * Reason Onset Date Comments Med Refill 11/15/2024 Encounter Details Date Type Department Care Team (Late st Contact Info) Description 11/15/2024 Refill [facility] [address] [place] [phone] Vinicio Causey PA-C [address] [place] [address] Med Refill Social History Tobacco Use Types [...] EDT Office Visit [facility] [address] [place] [address] Joshua Zhu MD [address] [place] [address] documented as of this encounter Visit Diagnoses Diagnosis Paroxysmal atrial fibrillation (CMS-HCC) Atrial fibrillation documented in this encounter Additional Health Concerns Assessment Noted Time PHQ-9 Depression Total Score: 0 04/24/20 20 10:41 AM EST documented as of this encounter Care Teams Balance Screwhead Polisher Relationship Specialty Start Date End Date Marine Glass MD [address] [place], [place] [id number] PCP - General 07/15/23 documented as of this encounter
--- OUTSIDE RECORDS SUMMARY | 2025-02-14 08:40 | XMS_ITS | Clinical Summary ---
Author Organization [facility] Address [address] [place] [address] Care Team Providers Care Telecommunications Manager Name Role Phone Marine Glass MD Primary Care Provider [phone] Allergies Active Allergy Reactions Criticality Noted Date [...] Department Care Team Description 12/21/2024 Results Follow-Up [facility] [address] [place] [address] Sara White RPh 12/18/2024 8:17 PM EDT - 12/19/2024 1:18 AM EDT Emergency [facility] [address] [place] [address] Govind Lopez DO Near syncope Discharge Disposition: Home 12/18/2024 Travel from Last 3 Months Immunizations Immunization Administration Dates Next Due COVID-19 original vaccine, a ge 12+ yr, monovalent (Connotate - PURPLE TOP) 06/20/2020,05/18/2020 influenza (HD-IIV3) vaccine, [...] is lower risk 4 12/19/2024 Data from: https://www.neighborhoodatlas.medicine.[facility].edu/. Last address used for calculation [address] [...] 05/04/2024 Medicare Advantage Annual Wellness Visit 05/04/2024 Covid-19 Vaccine (2024-2 6 season) 2025 02/08/2024, 02/10/2023, 08/13/2021, Additional history exists Influenza Vaccine (#1) 2025 , 02/10/2023, 02/01/2022, [...] HRS AFTER INITIAL (12/19/2024 12:29 AM EDT) Pathologist [facility] MARIE High Sensitivity 13(H) <12 ng/L 12/19/2024 12:56 AM EDT [facility] Blood BLOOD SPECIMEN / Unknown Venipuncture / Unknown 12/19/2024 12:29 AM EDT 12/19/2024 12:33 AM EDT Govind Lopez DO LABORATORY Final Result Performing Organization Address City/State/[facility] Co de Phone Number [facility] [address] [place] [address], * (ABNORMAL) URINE CULTURE IF INDICATED (12/19/2024 12:06 AM EDT) Pathologist [facility] Culture, Urine Mixed microbiota, including predominantly: 12/21/2024 7:40 AM EDT [facility] Culture, Urine >=100,000 CFU/ml Escherichia coli(A) MINIMUM INHIBITORY CONCENTRATION (VITEK) 12/21/2024 7:40 AM EDT [facility] Urine MID-STREAM URINE SPECIMEN / Unknown Non Blood / Unknown 12/19/2024 12:06 AM EDT 12/19/2024 12:12 AM EDT Narrative [facility] - 12/21/2024 7:40 AM EDT This test was developed and its performance characteristics determined by the [facility]'s [facility] [place] ([facility]). It has not been cleared or approved by the FDA. [facility] is regulated under CLIA as qualified to [...] Nitrofurantoin MINIMUM INHIBIT ORY CONCENTRATION(VITEK) <=16: Susceptible Govind Lopez DO MICROBIOLOGY Final Result [facility] [address] [place] [address], * (ABNORMAL) URINALYSIS (WITH MICROSCOPIC) WITH CULTURE IF INDICATED (12/19/2024 12:06 AM EDT) Color Light Yellow yellow 12/19/2024 12:22 AM EDT [facility] Clarity Turbid(A) Clear 12/19/2024 12:22 AM EDT [facility] Glucose, Urine Negative Trace, Negative 12/19/2024 12:22 AM EDT [facility] Bilirubin, Urine Negative Negative 12/20/19 25 12:22 AM EDT [facility] Ketones, Urine Negative Negative, Trace 12/19/2024 12:22 AM [facility] Specific [place], Ur 1.028 1.005 - 1.030 12/19/2024 12:22 AM [facility] Hemoglobin/Blood ,Ur Trace Negative, Trace 12/19/2024 12:22 AM [facility] pH, Urine 6.0 5.0 - 8.0 12/19/2024 12:22 AM [facility] Protein, Urine Negative Trace, Negative 12/19/2024 12:22 AM [facility] Urobilinogen Normal Normal 12/19/2024 12:22 AM [facility] Nitrites 2+(A) Negative 12/19/2024 12:22 AM [facility] Leuk Esterase 500 Felipe/uL(A) Negative, 25 Felipe/uL 12/19/2024 12:22 AM [facility] WBC, Urine >25 /HPF(A) 0-5 /HPF 12/19/2024 12:22 AM [facility] RBC, Urine 6-10 /HPF(A) 0-3 /HPF 12/19/2024 12:22 AM [facility] Bacteria Rare(A) None Seen /HPF 12/19/2024 12:22 AM [facility] Squamous Epithelial Cells Few /HPF 12/19/2024 12:22 AM [facility] Casts, Hyaline 1-3 /LPF(A) 0 /LPF 12:22 AM [facility] Urine MID-STREAM URINE SPECIMEN / Unknown Non Blood / Unknown 12/19/2024 12:06 AM EDT 12/19/2024 12:12 AM EDT us Govind Lopez DO LABORATORY Final Result [facility] [address] [place] [address], [place] * CTA CHEST (NONGATED) W IVCON PE (12/18/2024 10:27 PM EDT) Anatomical Region Laterality Modality Chest Computed Tomogra phy 12/18/2024 10:2 7 PM EDT Impressions 12/19/2024 12:47 AM EDT IMPRESSION: 1. No CT evidence of pulmonary thromboembolism. 2. No acute pulmonary process. 3. Calcified granulomas and lymph nodes. Film Waxer: SHIVANI Transcribe Date/Time: Dec 19 2024 12:32A Dictated by : JASON HINKLE MD This examination was interpreted and the report reviewed and electronically signed by: JASON HINKLE MD on Dec 19 2024 12:45AM EST Narrative 12/19/2024 12:47 AM EDT * * *Final Report* * * DATE OF EXAM: Dec 18 2024 10:27PM [facility] 0564 - CTA CHEST (NON GATED) W [...] images: No additional findings. Procedure Note Provider, [facility] [place] - 12/19/2024 * * *Final Report* * * DATE OF EXAM: Dec 18 2024 10:27PM [facility] 0564 - CTA CHEST (NON GATED) W [...] process. 3. Calcified granulomas and lymph nodes. Film Waxer: [facility] Transcribe Date/Time: Dec 19 [...] Chronic intracranial changes and other details above. Film Waxer: [facility] Transcribe Date/Time: Dec 18 2024 11:53P Dictated by : LOVE VALENCIA MD This examination was interpreted and the report reviewed and electronically signed by: LOVE VALENCIA MD on Dec 19 2024 12:12AM EST Narrative 12/19/2024 12:14 AM EDT * * *Final Report* * * DATE OF EXAM: Dec 18 2024 10:24PM [facility] 0504 - CT BRAIN WO IVCON / [...] Other: No depressed skull fracture is seen. Surgical Specialist (topogram) images: Degenerative spine changes noted. Non-diagnostic otherwise. Procedure Note Provider, [facility] - 12/19/2024 * * *Final Report* * * DATE OF EXAM: Dec 18 2024 10:24PM [facility] 0504 - CT BRAIN WO IVCON / [...] Other: No depressed skull fracture is seen. Surgical Specialist (topogram) images: Degenerative spine changes noted. Non-diagnostic otherwise. IMPRESSION IMPRESSION: Brain CT shows no evidence of an acute intracranial abnormality. Chronic intracranial changes and other details above. Film Waxer: SHIVANI Transcribe Date/Time: Dec 18 2024 11:53P Dictated by : LOVE VALENCIA MD This examination was interpreted and the report reviewed and electronically signed by: LOVE VALENCIA MD on Dec 19 2024 12:12AM EST us Govind Lopez DO CT-PAMA Final Result * (ABNORMAL) HIGH SENSITIVITY TROPONIN T (SECOND) (12/18/2024 9:42 PM EDT) MARIE High Sensitivity 12(H) <12 ng/L 12/18/2024 10:13 PM EDT [facility] Blood BLOOD SPECIMEN / Unknown Venipuncture / Unknown 12/18/2024 9:42 PM EDT 12/18/2024 9:46 PM EDT us Govind Lopez DO LABORATORY Final Result [facility] [address] [place] [address], [place] * XR CHEST 1V FRONTAL PORT (12/18/2024 8:46 PM EDT) Anatomical Region Laterality Modality Chest Radiographic Samia ging 12/18/2024 8:46 PM EDT Impressions 12/18/2024 8:58 PM EDT IMPRESSION: Chronic changes as described above with no definite acute disease. Film Waxer: SHIVANI Transcribe Date/Time: Dec 18 2024 8:55P [...] post left breast/axillary surgery. Procedure Note Provider, [facility] [place] - 12/18/2024 * * *Final Report* * [...] described above with no definite acute disease. Film Waxer: [facility] Transcribe Date/Time: Dec 18 2024 8:55P Dictated by : KATRIN PHILIP MD This examination was interpreted and the report reviewed and electronically signed by: KATRIN PHILIP MD on Dec 18 2024 8:56PM EST us Govind Lopez DO RAD-PAMA Final Result * MAGNESIUM (12/18/2024 8:39 PM EDT) Pathologist [facility] Magnesium 2.0 1.7 - 2.3 mg/dL 12/18/2024 9:21 PM EDT [facility] Blood BLOOD SPECIMEN / Unknown Venipuncture / Unknown 12/18/2024 8:39 PM EDT 12/18/2024 8:47 PM EDT us Govind Lopez DO LABORATORY Final Result Performing Organization Address City/[facility]/ZIP Co de Phone Number [facility] [address] [place] [address], [place] * (ABNORMAL) HIGH SENSITIVITY TROPONIN T (INITIAL) (12/18/2024 8:39 PM EDT) [facility] MARIE High Sensitivity 14(H) <12 ng/L 12/18/2024 9:22 PM EDT [facility] Blood BLOOD SPECIMEN / Unknown Venipuncture / Unknown 12/18/2024 8:39 PM EDT 12/18/2024 8:47 PM EDT us Govind Lopez DO LABORATORY Final Result Performing Organization Address City/[facility]/ZIP Co de Phone Number [facility] [address] [place] [address], [place] * (ABNORMAL) NT PRO BNP (12/18/2024 8:39 PM EDT) [facility] NT Pro BNP 507(H) <450 pg/mL 12/18/2024 9:20 PM EDT [facility] Blood BLOOD SPECIMEN / Unknown Venipuncture / Unknown 12/18/2024 8:39 PM EDT 12/18/2024 8:47 PM EDT us Govind Lopez DO LABORATORY Final Result [facility] [address] [place] [address], [place] * PROTHROMBIN TIME (12/18/2024 8:39 PM EDT) PT Sec 11.7 9.7 - 13.0 sec 12/18/2024 9:18 PM EDT [facility] INR 1.1 0.9 - 1.3 12/18/2024 9:18 PM EDT [facility] Comment: Vitamin K Antagonist (VKA) Therapeutic Range: INR 2 to 3 (Target INR of 2.5) Note: For patients treated with VKA drugs, such as warfarin, the [place] College [employer] Chest Physicians 2012 Guideline recommends [...] Chest 2012, 141:7S-47S Jw RA, et al. [facility] 2017, 70: 252-289 Blood BLOOD SPECIMEN / Unknown Venipuncture / Unknown 12/18/2024 8:39 PM EDT 12/18/2024 8:47 PM EDT us Govind Lopez DO LABORATORY Final Result [facility] [address] [place] [address], [place] * LIPASE (12/18/2024 8:39 PM EDT) Lipase 24 16 - 61 U/L 12/18/2024 9:21 PM EDT [facility] Blood BLOOD SPECIMEN / Unknown Venipuncture / Unknown 12/18/2024 8:39 PM EDT 12/18/2024 8:47 PM EDT us Govind Lopez DO LABORATORY Final Result [facility] [address] [place] [address], [place] * (ABNORMAL) COMPREHENSIVE METABOLIC PANEL (12/18/2024 8:39 PM EDT) Protein, Total 6.4 6.3 - 8.0 g/dL 12/18/2024 9:21 PM [facility] Albumin 3.7(L) 3.9 - 4.9 g/dL 12/18/2024 9:21 PM [facility] Calcium, Total 9.4 8.5 - 10.2 mg/dL 12/18/2024 9:21 PM [facility] Bilirubin, Total 0.2 0.2 - 1.3 mg/dL 12/18/2024 9:21 PM [facility] Alkaline Phosphatase 55 34 - 123 U/L 12/18/2024 9:21 PM [facility] AST 16 13 - 35 U/L 12/18/2024 9:21 PM [facility] ALT 9 7 - 38 U/L 12/18/2024 9:21 PM [facility] Glucose 153(H) 74 - 99 mg/dL 12/18/2024 9:21 PM [facility] Comment: The [place] Diabetes Association (ADA) provides guidance for cutoff [...] Standards of Medical Care in Diabetes 2016, [place] Diabetes Association. Diabetes Care. 2016.39(Suppl 1). BUN 22(H) 7 - 21 mg/dL 12/18/2024 9:21 PM [facility] Creatinine 1.24(H) 0.58 - 0.96 mg/dL 12/18/2024 9:21 PM [facility] Sodium 138 136 - 144 mmol/L 12/18/2024 9:21 PM [facility] Potassium 3.1(L) 3.7 - 5.1 mmol/L 12/18/2024 9:21 PM [facility] Chloride 99 98 - 107 mmol/L 12/18/2024 9:21 PM [facility] CO2 24 22 - 30 mmol/L 12/18/2024 9:21 PM [facility] Anion Gap 15 8 - 15 mmol/L 12/18/2024 9:21 PM [facility] Estimated Glomerular Filtration Rate 45(L) >=60 mL/min/1. 73m 12/18/2024 9:21 PM [facility] Comment:Estimated Glomerular Filtration Rate (eGFR) is [...] 8:39 PM EDT 12/18/2024 8:47 PM EDT Govind Lopez DO LABORATORY Final Result [facility] [address] [place] [address], * (ABNORMAL) CREATINE KINASE/CK (12/18/2024 8:39 PM EDT) CK 37(L) 42 - 196 U/L 12/18/2024 9:21 PM EDT [facility] Blood BLOOD SPECIMEN / Unknown Venipuncture / Unknown 12/18/2024 8:39 PM EDT 12/18/2024 8:47 PM EDT us Govind Lopez DO LABORATORY Final Result [facility] [address] [place] [address], * (ABNORMAL) COMPLETE BLOOD COUNT AND DIFFERENTIAL (12/18/2024 8:39 PM EDT) WBC 7.47 3.70 - 11.00 k/uL 12/18/2024 8:59 PM EDT [facility] RBC 3.79(L) 3.90 - 5.20 m/uL 12/18/2024 8:59 PM EDT [facility] Hemoglobin 12.3 11.5 - 15.5 g/dL 12/18[facility]2024 8:[facility] Hematocrit 36.9 36.0 - 46.0 % 12/18/2024 8:[facility] MCV 97.4 80.0 - 100.0 fL 12/18/2024 8:59 PM EDT [facility] MCH 32.5 26.0 - 34.0 pg 12/18/2024 8:59 PM EDT [facility] MCHC 33.3 30.5 - 36.0 g/dL 12/18/2024 8:59 PM EDT [facility] RDW-CV 11.9 11.5 - 15.0 % 12/18/2024 8:59 PM EDT [facility] Platelet Count 209 150 - 400 k/uL 12/18/2024 8:59 PM T [facility] MPV 8.7(L) 9.0 - 12.7 fL 12/18/2024 8:59 PM EDT [facility] Neutrophils % 33.0 % 12/18/2024 8:59 PM EDT [facility] Abs Neut 2.47 1.45 - 7.50 k/uL 12/18/2024 8:59 PM EDT [facility] Lymphocytes % 51.7 % 12/18/2024 8:59 PM EDT [facility] Abs Lymph 3.86 1.00 - 4.00 k/uL 12/18/2024 8:59 PM EDT [facility] Monocytes % 9.4 % 12/18/2024 8:59 PM EDT [facility] Abs Schleicher 0.70 <0.87 k/uL 12/18/2024 8:59 PM EDT [facility] Eosinophils % 4.6 % 12/18/2024 8:59 PM EDT [facility] Abs Eosin 0.34 <0.46 k/uL 12/18/2024 8:59 PM EDT [facility] Basophils % 1.2 % 12/18/2024 8:59 PM EDT [facility] Abs Baso 0.09 <0.11 k/uL 12/18/2024 8:59 PM EDT [facility] Immature Granulocytes % 0.1 % 12/18/2024 8:59 PM EDT [facility] Abs Immature Gran <0.03 <0.10 k/uL 12/18/2024 8:59 PM EDT [facility] NRBC 0.0 /100 WBC 12/18/2024 8:59 PM EDT [facility] Absolute nRBC <0.01 <0.01 k/uL 12/18/2024 8:59 PM EDT [facility] Diff Type Auto 12/18/2024 8:59 PM EDT [facility] Blood BLOOD SPECIMEN / Unknown Venipuncture / Unknown 12/18/2024 8:39 PM EDT 12/18/2024 8:47 PM EDT us Govind Lopez DO LABORATORY Final Result Performing Organization Address [facility] Co de Phone Number [facility] [address] [place] [address], * (ABNORMAL) ETHANOL/ALCOHOL (12/18/2024 8:39 PM EDT) Ethanol 105(H) <11 mg/dL 12/18/2024 9:19 PM EDT [facility] Comment:Values > 80 mg/dL ma y indicate intoxication Blood BLOOD SPECIMEN / Unknown Venipuncture / Unknown 12/18/2024 8:39 PM EDT 12/18/2024 8:47 PM EDT us Govind D Lopez DO LABORATORY Final Result [facility] [address] [place] [address], [place] * EKG (12/18/2024 8:27 PM EDT) Ventricular Rate 53 BPM [facility] Atrial Rate 53 BPM [facility] P-R Interval 255 ms [facility] QRS Duration 125 ms [facility] QT Interval 458 ms [facility] QTC Calculation (Bazett) 430 ms [facility] Calculated P [place] 231 degrees [facility] Calculated R [place] -23 degrees [facility] Calculated T [place] 117 degrees [facility] 12/18/2024 8:27 PM EDT Impressions [facility] - 12/19/2024 1:04 AM EDT Sinus or ectopic atrial rhythm Prolonged MO intervalAbnormal ECG Confirmed by GOVIND LOPEZ DO ([id number]) on 12/19/2024 1:04:30 AM Narrative [facility] - 12/19/2024 1:04 AM EDT NAME : BETTIE MARQUEZ PID : [id number] : 1945 Gender : Female Race : ORD : Procedure Date : Dec 18 2024 20:27:32 Edit Date : Dec 19 2024 01:04:35 Diagnosis: Sinus or ectopic atrial rhythm Prolonged MO intervalAbnormal ECG Confirmed by GOVIND LOPEZ DO ([id number]) on 12/19/2024 1:04:30 AM Test Reason : Location : 302 : ED AVED-12 Overread By : GOVIND LOPEZ DO Edited By : GOVIND LOPEZ DO Referred By : , Acquired by : , us Ccf Provider CARDIOLOGY_MT Final Result Performing Organization Address City/[facility] Co de Phone Number [facility] [address] [place] [address], from Last 3 Months Insurance [employer] MEDICARE Care Teams Telecommunications Manager Relationship Specialty Start Date End Date Marine Glass MD [address] [place] [address] PCP - General Family Medicine 11/26/15
--- OUTSIDE RECORDS SUMMARY | 2025-02-14 08:40 | XMS_ITS | Clinical Summary ---
Author Organization [facility] Address [address] [place] [address] Care Team Providers Care Milk Pasteurizer Name Role Phone Marine Glass MD Primary Care Provider [phone] Allergies Active Allergy Reactions Criticality Noted Date [...] x 1 month, then 2x/week for maintainence, [facility]/pharmacy #[id number], 165, cm, 02/11/23 [...] = 0.6 oz pur e alcohol) social [facility] Utilities Answer Date Recorded In the past 12 months has th e [employer], gas, oil, or water [employer] threatened to shut off services in your [...] place to sleep or slept in a nursing home (including now)? No 07/07/2023 Comments Unknown Sex [...] this topic Medical Devices Implanted Type Area Mortician Supplies Sales Representative Device Identifier Shelf Expiration Date Model / Serial / Lot Anchors, 5.5 Non Punching - [id number] Implanted:Qty: 1 on 07/07/2023 by Miko Pascual MD at [facility] Right: Hip [employer] 10/31/2026 [id number] / / [id number] Anchors, 5.5 Non Punching - [id number] Implanted:Qty: 3 on 07/07/2023 by Miko Pascual MD at [facility] Right: Hip [employer] 05/03/2027 [id number] / / [id number] Procedures Procedure Name Priority Date/Time Associated Diagnosis Comments BASIC METABOLIC PANEL Today 2023 4:48 AM EST from Last 3 Months or Most Recently Relevant to Health Maintenance Results * (ABNORMAL) BASIC METABOLIC PANEL (2023 4:48 AM EST) Glucose 141(H) 70 - 100 MG/DL [address] Comment: NORMAL <100 mg/dL PREDIABETES 101-126 mg/dL DIABETES 126 mg/dL or higher BUN 30(H) 7 - 20 MG/DL [address] CREATININE SERUM 1.10 0.70 - 1.20 MG/DL [address] SODIUM 134(L) 137 - 145 MMOL/L [address] Potassium 3.8 3.5 - 5.1 MMOL/L [address] CHLORIDE 103 98 - 107 MMOL/L [address] Comment:Please note: Triglyc eride levels of 600mg/dL or higher may positively bias chloride results by approximately 2.1 mmol CARBON DIOXIDE (CO2) 30 22 - 30 MMOL/L [address] ANION GAP 1 MMOL/L [address] CALCIUM 8.7 8.4 - 10.2 MG/DL [address] ESTIMATED GFR, NON AMER 51 ml/min/1. 73sq.m [address] ESTIMATED GFR, 62 ml/min/1. 73sq.m [address] GFR COMMENT Average GFR for 70+ years old = 75. [address] Comment: Chronic Kidney disease, GFR = <60. Kidney failure, GFR = <15. The GFR estimate is not adjusted for extreme body surface area or acute process, nor has it been validated for women or ethnic groups other than and . Blood 2023 4:48 AM EST 2023 5:12 AM EST us Chance Mahoney MD CHEMISTRY ORDERABLES Final Resul t [address] [id number] from Last 3 Months or Most Recently Relevant to Health Maintenance Insurance Medicare [employer] PPO Advance Directives For more information, please contact: [phone] (7:30 AM - 6PM [facility], Thursday-Thursday) Documents on File Type Date Recorded Patient Business Executive Expl anation Advance Directives/Living Will 06/25/2023 9:17 AM DURABLE POWER OF SPACE OFFICER FOR HEALTHCARE 06/25/23 Advance Directives/Living Will 06/25/2023 9:13 AM LIVING WILL 06/25/23 * Full Code (Latest Code Status on File) Date Activated Date Inactivated Comments 07/07/2023 3:27 PM Care Teams Milk Pasteurizer Relationship Specialty Start Date End Date Marine Glass MD PCP - General Family Medicine 05/11/23
--- OUTSIDE RECORDS SUMMARY | 2025-02-14 08:41 | XMS_ITS | Clinical Summary ---
Author Organization [facility] Address [address], [address] [place] [address] Care Team Providers Care Materials Development Engineer Name Role Phone Marine Glass MD Primary Care Provider [phone] Allergies Active Allergy Reactions Criticality Noted Date [...] of Treatment Not on file Care Teams Materials Development Engineer Relationship Specialty Start Date End Date Marine Glass MD PCP - General Family Medicine 10/19/18
--- OUTSIDE RECORDS SUMMARY | 2025-02-14 08:41 | XMS_ITS | Clinical Summary ---
Author Organization [facility] Address [address] [place] [address] Care Team Providers Care Fancy Packer Name Role Phone Marine Glass MD Primary Care Provider [phone] Allergies Active Allergy Reactions Criticality Noted Date [...] Description 12/27/2024 10:00 AM EDT [facility] [address] [place] [address] Karen Espinal MD Seborrheic keratosis, inflamed (Primary Dx); Inflamed skin tag; Amna 12/27/2024 Bamboo flowsheet [facility] [address] [place] [address] Karen Espinal MD 12/27/2024 Travel from Last [...] Months Insurance [employer] MED[employer]ARE ADVANTAGE Care Teams Fancy Packer Relationship Specialty Start Date End Date Marine Glass MD PCP - General Family Medicine 09/26/22
--- OUTSIDE RECORDS SUMMARY | 2025-02-14 08:41 | XMS_ITS | CCD ---
Author Organization [facility] CliniSyla Care Team Providers Care Elementary Librarian Name Role Phone PHYSICIAN, DEFAULT Unavailable Unavailable [...] Care Provider MD Elliot Starks Attending Provider ELLIOT STARKS Primary Care Physician Elliot Starks MD Primary Care Provider [phone] Melchor Rivera Admitting Unavail able Melchor Rivera [...] PAULA Referring Unavailable SELF, SELF Referring Unavailable PAULA FITZPATRICK Attending Unavailable STARKS, ELLIOT Primary Care Unavailable MAYDA, MIKO Attending Unavailable MAYDA, MIKO Referring Unavailable STARKS, ELLIOT Primary Care Unavailable SELF, SELF Referring Unavailable MIKO OHARA Attending Unavailable STARKS, ELLIOT Primary Care Unavailable BROCWELL, DIVINE M Referring Unavailable STARKS, ELLIOT Primary Care Unavailable BROCWELL, DIVINE M Attending Unavailable Elliot Starks MD Primary Care Provider Alfreda Miller Attending Unavailable Jean Pierre MARTE Admitting Unavailable Jean Pierre MARTE Attending Unavailable RADHA MART Attending Unavailable SAI STARKSIA E Referring Unavailable STARKS, ELLIOT E Primary Care Unavailable BIALECKI, DIVINE Referring Unavailable STARKS, ELLIOT E Primary Care Unavailable ROSANGELA MONTAGUE Referring Unavailable STARKSSAIIA E Primary Care Unavailable Elliot Starks MD Primary Care Provider Elliot Starks MD Attending Provider Agusto VILLEGAS, Daisy Dietz Attending Unavailable Agusto VILLEGAS, Andrius Vaudrey Attending Unavailable Agusto VILLEGAS, Andrius Vytdannielle Attending Unavailable Agusto VILLEGAS, Andrius Vaudrey Attending Unavailable Elliot Starks MD Primary Care Provider RADHA ESPINAL Attending Unavailable Govind Snow DO Attending Provider Unavailable Ayanna Saini CMA Attending Provider Unavaila ble ELLIOT STARKS E Primary Care Unavailable GOVIND SNOW Attending Unavailable Ian Connell DO Attending Provider Elliot Starks MD Other Provider Marisa Willis MD Attending Provider Maria E Osman Attending Unavailable Alfreda Miller Referring Unavailable Alfreda Miller Attending Unavailable Alfreda Miller Admitting Unavailable Maria E Osman Attending Unavailable Maria E Osman Admitting Unavailable Maria E Osman Attending Unavailable Alfreda Miller Referring Unavailable Maria E Osman Attending Unavailable Elliot Starks Attending Unavailable Elliot Starks Primary Care Unavailable Elliot Starks Admitting Unavailable Allergies Allergy Classification Reported Allergen(s) Allergy Type Date of Onset Reaction(s) Facility (20 sources) Acetaminophen / HYDROcodone; Translations: [HYDROCODONE-ACET AMINOPHEN] Drug Allergy 03-19-20 17 Unknown, Itching, Nausea Only, Rash [facility] (20 sources) Baclofen; Translations: [baclofen] Drug Allergy 03-19-20 17 Unknown, Itching, Rash [facility] (20 sources) Codeine; Translations: [codeine] Drug Allergy 08-09-19 09 Unknown, Itching, Rash [facility] (20 sources) levoFLOXacin; Translations: [levofloxacin] Drug Allergy 03-19-20 17 Unknown, Itching, Nausea Only, Rash [facility] (20 sources) Morphine; Translations: [morphine] Drug Allergy 08-09-19 09 [facility] (17 sources) oxyCODONE; Translations: [OXYCODONE] Drug Allergy 12-03-19 16 [facility] (15 sources) Penicillins; Translations: [PENICILLINS] Drug Allergy 12-03-19 16 [facility] (1 source) Baclofen Drug Allergy [facility] (1 source) Codeine Drug Allergy [facility] (17 sources) levoFLOXacin; Translations: [Levaquin] Drug Allergy Unknown [facility] (1 source) Morphine Drug Allergy 05-04-18 94 [facility] (1 source) oxyCODONE Drug Allergy 05-04-19 05 [facility] (1 source) Penicillins Drug allergy (disorder) 05-04-18 93 [facility] (6 sources) traMADol; Translations: [Ultram] Drug Allergy [facility] (11 sources) Codeine Drug Allergy Unknown [employer] Other (20 sources) Penicillin; Translations: [penicillin] Drug Allergy Unknown [facility] (20 sources) traMADol; Translations: [tramadol] Drug Allergy 07-13-19 20 Itching, Rash [facility] (20 sources) zolpidem; Translations: [zolpidem] Drug Allergy 07-04-19 23 Unknown, [facility] (11 sources) Penicillins Drug Allergy 12-03-19 16 [employer] [facility] (1 source) Non-steroidal anti-inflammatory agent Drug allergy 02-02-20 13 Unknown [employer] [facility] [place] Other (20 sources) sulfADIAZINE; Translations: [SULFADIAZINE] Drug Allergy 07-04-19 23 Comment:[facility] (1 source) Ultram *ANALGESICS - OPIOID* Propensity to adverse reactions Unknown [employer] [facility] [place] Other (1 source) Vioxx *ANALGESICS - ANTI-INFLAMMATORY * Propensity to adverse reactions Unknown [employer] [facility] [place] Other (1 source) Penicillin G Benzathine & Proc Drug allergy Unknown [employer] Other (1 source) Morphine Sulfate (Concentrate) *ANALGESICS - OPIOI Propensity to adverse reactions Unknown [employer] [facility] [place] Other (1 source) Allergies Reconciled Propensity to adverse reactions Unknown [employer] Other (1 source) patient allergy list reviewed by nurse or physicia Propensity to adverse reactions 02-02-20 Comment:Done [employer] Other (1 source) Vicodin *ANALGESICS - OPIOID* Propensity to adverse reactions Unknown [employer] Other (9 sources) calcitonin Drug allergy 10-28-19 24 Unknown, [facility] (15 sources) Penicillins Propensity to adverse reactions to drug 09-13-19 23 [facility] Acetaminophen / HYDROcodone; Translations: [Vicodin] Drug Allergy [facility] (1 source) Adhesive Tape; Translations: [Tape] Propensity to adverse reactions (disorder) [facility] (10 sources) Latex Propensity to adverse reactions to drug 06-19-19 24 [facility] (10 sources) *Adhesive Tape Propensity to adverse reactions 07-04-19 23 [facility] (8 sources) Cephalexin Drug Allergy 07-09-19 Nausea Only, Dry Mouth, Flushing [facility] (9 sources) Acetaminophen; Translations: [acetaminophen] Drug Allergy 10-28-19 24 [facility] (9 sources) HYDROcodone; Translations: [hydrocodone] Drug Allergy 10-28-19 24 [facility] (9 sources) Penicillin G Benzathine; Translations: [penicillin G benzathine] Allergy to substance 10-28-19 [facility] (20 sources) rofecoxib; Translations: [ROFECOXIB] Drug Allergy 07-04-19 [facility] (19 sources) Adhesive agent; Translations: [ADHESIVE] Propensity to adverse reactions to drug 07-04-19 [facility] (20 sources) penicillin G benzathine / penicillin G procaine; Translations: [PENICILLIN G BENZATHIN,PROCAIN ] Drug Allergy 07-04-19 [facility] (4 sources) Morphine; Translations: [Morphine Sulfate] Drug Allergy [facility] (4 sources) zolpidem; Translations: [Ambien] Drug Allergy [facility] (11 sources) Penicillins Propensity to adverse reactions to drug 12-03-19 16 Rash, [facility] (3 sources) Baclofen Drug Allergy 09-13-19 23 [facility] (5 sources) Adhesive agent Propensity to adverse reactions to drug 07-04-19 [facility] (1 source) Baclofen Drug Allergy 02-04-20 [facility] (1 source) Codeine Drug Allergy 02-04-20 [facility] (1 source) levoFLOXacin Drug Allergy 02-04-20 [facility] (1 source) Morphine Drug Allergy 02-04-20 [facility] (1 source) Penicillins Drug allergy (disorder) 02-04-20 [facility] (1 source) sulfADIAZINE Drug Allergy 02-04-20 [facility] (1 source) traMADol Drug Allergy 02-04-20 [facility] (1 source) zolpidem Drug Allergy 02-04-20 [facility] (1 source) calcitonin Drug allergy (disorder) 02-04-20 [facility] Medications Current Medications Medication Drug [...] mouth twice daily take 2 tablets by mo uth every twelve hours apixaban 2.5 MG tablet Take 2 tablets by mouth every 12 hours. Active apixaban 2.5 MG tablet Take by mouth every 12 hours. 0 Active Comment on above: Take 5 mg by mouth t wice daily. ascorbic acid 226 mg / beta carotene 13154 unt / cuprous oxide 0.8 mg / dl-alpha tocopheryl acetate 200 unt / zinc oxide 34.8 mg oral capsule (20 sources) Vitamin C Start: 10-28-2023 take 1 capsule by mouth in the morning vitamins A,C,U-dovs-jmwwwk (ICAPS AREDS) 4,296 mcg-226 mg-90 mg capsule [...] 1 tablet by mouth once daily Start: 09-10-2022 End: 07-06-2024 take 1.5 tablets [...] a day for 10 day(s) Jul, Active clarithromycin 500 mg oral tablet (8 [...] as needed. cycloSPORINE 0.5 mg/ml ophthalmic suspension (8 sources) Calcineurin Inhibitor Immunosuppressant Start: 10-28-2023 take [...] 1 month, then 2x a week afterwards, [facility]/pharmacy #[id number], 165, cm, 01/25/25 8:16:00 EDT, [...] 1 month, then 2x a week afterwards, [facility]/pharmacy #[id number], 165, cm, 06/22/24 13:05:00 EST, [...] x 1 month, then 2x/week for maintainence, [facility]/pharmacy #[id number], 165, cm, 02/11/23 10:41:00 EDT, Height/Length Dosing, 77.5, kg, 02/11/23 10:41:00 EDT, Weight Dosing 02/11/2023 Active Start: 02-11-2023 Estrace 0.1 mg /g Cream See Instructions, 42.5 gm, Refill(s) 3, apply pea size amount to urethra/inner vagina 3x/week x 1 month, then 2x/week for maintainence, [facility]/pharmacy #[id number], 165, cm, 02/11/23 10:41:00 EDT, Height/Length Dosing, 77.5, kg, 02/11/23 10:41:00 EDT, Weight Dosing Start Date: 02/11/23 Status: Ordered flecainide acetate 50 mg oral tablet (20 sources) Antiarrhythmic Start: 07-15-2023 End: 01-17-2025 take 1 tablet by mouth every twelve hours Start: 07-15-2023 End: 08-06-2024 take 1 tablet [...] TAKE 1 TABLET DAILY 90 tablet 2 02/02/2025 Active Start: 09-18-2022 End: 02-02-2025 take 1 tablet by mouth once daily hydroCHLOROthiazide 25 mg / losartan potassium 100 mg oral tablet (4 sources) Thiazide Diuretic, Angiotensin 2 Receptor Philip Start: 07-28-2018 losartan-hydrochlorothiazide (HYZAAR) 100-25 mg per tablet [employer] (1 source) Start: 02-11-2023 take 1 mg by mouth once daily [employer]ws mg, Oral, Daily, Refills(s) 0 Start Date: 02/11/23 Status: Ordered lifitegrast 50 mg/ml ophthalmic solution (4 sources) Lymphocyte Function-Assoc iated Antigen-1 Antagonist Start: 03-10-2019 XIIDRA 5 % dpet lisinopril 20 mg oral tablet (20 sources) Angiotensin Converting Enzyme Inhibitor Start: 03-21-2024 Start: 03-21-2024 Lisinopril 20 mg tablet Active [...] Daily, # 30 tab(s), Refills(s) 11, Pharmacy: [facility]/pharmacy #[id number], 165, cm, 02/11/23 10:41:00 EDT, [...] day(s), # 14 cap(s), Refills(s) 0, Pharmacy: [facility]/pharmacy #[id number], 165, cm, 01/25/25 8:16:00 EDT, [...] take 1 capsule by mouth once daily Start: 12-22-2023 End: 04-30-2024 Omeprazole 40 mg [...] 0 Active take 1 capsule by mo [facility] once daily omeprazole [address] Take 1 capsule by mouth daily. 0 Active Omeprazole 40 mg TAKE 2 CAPSULES DAILY Active take 1 capsule by mo [facility] once daily Omeprazole 40 MG 1 [...] sources) Start: 12-28-2024 take 1 tablet by mirza th once daily at mealtime Start: 06-22-2024 Potassium Chlo ride (Igo-Aznv-Pmt 10) 10 mEq oral tablet, extended release 10 mEq = 1 tab(s), Refills(s) 0 Start Date: 06/22/24 Status: Ordered Repeat number: 1 Start: 06-22-2024 Potassium Chlo ride (Jog-Effa-Cvn 10) 10 mEq oral tablet, extended release [...] Active Start: 08-11-2022 [facility] Bactrim DS 800-160 MG 1 tablet Orally Twice a day for 10 day(s) Oct, Active tiZANidine 4 mg oral tablet (3 sources) Central alpha-2 Adrenergic Agonist Start: 12-29-2024 take [...] 2023 2:33pm Trospium Chlorid e Active Vitamins A,C,P-Nytu-Ystghu (Preservision Areds) 4,296 mcg-226 mg-90 mg capsule (4 sources) Start: 10-28-2023 take 1 capsule by mouth twice daily Vitamins A,C,D-Lepi-Aolonf (Preservision Areds) 4,296 mcg-226 mg-90 mg capsule Active 1 CAP PO Twice daily October 27, 2023 11:00pm Start: 10-28-2023 take 1 capsule by mo [facility] twice daily Vitamins A,C,B-Seay-Txrpnf (Preservision Areds) 4,296 mcg-226 mg-90 mg capsule [...] at Discharge) azithromycin 250 mg oral tablet (11 sources) Macrolide Antimicrobial Start: 04-30-2024 End: 05-09-2024 Azithromycin 250 mg tablet Discontinued 0 PO .COMPLEX 6 April 30, 2024 1:00am May 09, 2024 [...] on Thu07/07/23 at 2145, Until Discontinued, Post-op/Post-Proc cephalexin 500 mg oral capsule (4 sources) Cephalosporin Antibacterial Start: 12-29-2024 End: 02-03-2025 take 1 capsule by mouth three times daily Cephalexin 500 mg capsule Discontinued 500 MG PO Three times daily 21 11December 29, 2024 12:00am February 03, 2025 8:44am Start: 07-07-2023 End: 07-14-2023 take 1 capsule by mouth every eight hours cephALEXin 500 MG capsule Take 1 capsule by mouth every 8 hours for 7 days. 21 capsule 07/07/2023 07/14/2023 Active cycloSPORINE Opth 0.05% Emul (6 sources) Start: 06-22-2024 cycloSPORINE O pth 0.05% Emul [...] Post-op/Post-Proc docusate sodium 50 mg / sennosides, correction 8.6 mg oral tablet (1 source) Start: [...] Post-op/Post-Proc ketorolac tromethamine 10 mg oral tablet (8 sources) Nonsteroidal Anti-inflammatory Drug, Cyclooxygenase Inhibitor Start: 06-24-2023 End: 06-29-2023 take 1 tablet by mouth once Ketorolac 10 mg tablet Discontinued 10 MG PO Once June 24, 2023 1:00am June 29, 2023 2:31pm methylPREDNISolone 4 mg oral tablet (8 sources) Corticosteroid Start: 06-24-2023 End: 06-29-2023 Methylprednisolone 4 mg tablets,dose pack Discontinued 4 MG PO .COMPLEX June 24, 2023 1:00am June 29, 2023 2:31pm 4 mg orally; nitrofurantoin, macrocrystals 100 mg oral capsule (4 sources) Nitrofuran Antibacterial Start: 11-29-2024 End: 12-29-2024 [...] citrate 100 mg extended release oral tablet (8 sources) Muscle Relaxant Start: 06-24-2023 End: 06-29-2023 [...] 0 Active predniSONE 20 mg oral tablet (6 sources) Start: 04-30-2024 End: 05-09-2024 take 1 [...] Refractory Constipation, use per package instructions, Post-op/Post-Proc SUMAtriptan 25 mg oral tablet (20 sources) Serotonin-1b and Serotonin-1d Receptor Agonist Start: 05-23-2024 End: 02-03-2025 take 1 tablet by mouth once as needed for headache Sumatriptan Succinate 25 mg tablet Discontinued 25 MG PO Once as needed for migraine headache May 23, 2024 2:02pm February 03, 2025 8:46am Start: 09-12-2016 SUMAtriptan 25 mg Tab 25 mg = 1 tab(s), Refills(s) 0 Start Date: 06/22/24 Status: Ordered Repeat number: 1 Comment on above: Take 25 mg by mouth as needed. temazepam 30 mg oral capsule (20 sources) Benzodiazepine Start: End: take 1 capsule by mouth once daily at bedtime as needed Temazepam 30 mg capsule Discontinued 30 MG PO Daily at bedtime as needed December 28, 2024 12:00am February 03, 2025 8:44am Start: 08-23-2018 End: 11-08-2024 take 1 capsule [...] Pre-op/Pre-Proc traZODone hydrochloride 50 mg oral tablet (20 sources) Serotonin Reuptake Inhibitor Start: 05-09-2024 End: 01-27-2025 take 1 tablet by mouth once daily at bedtime as needed Trazodone 50 mg tablet Discontinued 50 MG PO Daily at bedtime as needed for insomnia November 15, 2024 3:54pm January 27, 2025 8:29am 200 ml vancomycin 5 mg/ml injection (2 [...] organisms Episodic Allergic reactions (8 sources) Eczema 02-05-2023 Episodic Anal and rectal conditions (8 sources) Disorder of rectum 02-05-2023 Episodic Anxiety disorders (7 sources) Acute stress disorder; Translations: [Acute stress [...] Resolved: 12-30-2019 03-24-2018 Chronic Chronic kidney disease (6 sources) Chronic kidney disease stage 3A ; [...] Onset: 10-06-2017 Chronic Fluid and electrolyte disorders (14 sources) Dehydration; Translations: [Hypokalemia] Onset: 06-11-2022 Episodic [...] Chronic Other aftercare (1 source) Other termite treater (current) drug therapy; Translations: [OTH MERCANTILE AGENT CURRENT DRUG THERAPY] Onset: 06-11-2022 Episodic Other aftercare (4 sources) Long-term current use of anticoagulant; Translations: [[facility] (current) use of anticoagulants] Onset: 02-11-2023 Episodic [...] 09-12-2022 09-12-2022 Chronic Other nervous system disorders (9 sources) Hip pain; Translations: [Other acute postprocedural [...] 05-10-2015 Episodic Otitis media and related conditions (14 sources) Acute bilateral otitis media ; Translations: [...] UTERUS] Onset: 06-11-2022 Episodic Residual codes; unclassified (20 sources) Insomnia; Translations: [Insomnia, unspecified] 08-18-2023 Episodic [...] Retinal detachments; defects; vascular occlusion; and retinopathy (11 sources) Degenerative disorder of macula ; Translations: [...] EAR INITIAL ENCOUNTER] Onset: 04-29-2022 Episodic Syncope (8 sources) Syncope and collapse; Translations: [Syncope] Onset: 12-18-2024 01-03-2025 Episodic Unclassified (1 source) CONTACT W/AND (SUSP) [...] Coronary arteriosclerosis; Translations: [Atherosclerotic heart disease of [place] coronary artery without angina pectoris] Onset: 07-29-2021 [...] Test Name Value Interpretation Reference Range Facility Basophils Auto (Bld) [#/Vol] Ordered By: Elliot Starks on 02-03-2025 Basophils (Bld) [#/Vol] 0.1 10 3/uL 0.0-0.1 [facility] Basophils/100 WBC Auto (Bld) Ordered By: Elliot Starks on 02-03-2025 Basophils/100 WBC (Bld) 1.3 % 0.2-2.0 [facility] Eosinophils/100 WBC Auto (Bl d)Ordered By: Elliot Starks on 02-03-2025 Eosinophils/100 WBC (Bld) 3.7 % 0.9-7.0 [facility] Erythrocyte distribution wid th Auto (RBC) [Ratio]Ordered By: Elliot Starks on 02-03-2025 Erythrocyte distribution width (RBC) [Ratio] 11.7 % 11.0-15.0 [facility] FPG ECG *PCP OFFICE ONLY*on 02-03-2025 FPG ECG *PCP OFFICE ONLY* [place] [address] Electrocardiograph Report Signed Patient: Bettie Burns MR#: [id number] : 1945 Acct:[id number] Age/Sex: 79 / F ADM Date: 02/03/25 Loc: [facility] Room: Type: [facility] Attending Dr: Elliot Starks MD Ordering Provider: Elliot Starks MD Date of Service: 02/03/2507/27/851 ECG/FPG ECG *PCP OFFICE ONLY*: R55 - Syncope and collapse Copies to: Test Reason : Blood Pressure : */* mmHG Vent. Rate : 55 BPM Atrial Rate : 55 BPM P-R Int : 234 ms QRS Dur : 104 ms QT Int : 456 ms P-R-T Axes : 78 -25 96 degrees QTcB Int : 436 ms Sinus bradycardia with 1st degree AV block Left ventricular hypertrophy with repolarization abnormality ( R in aVL , [place] product ) Abnormal ECG Confirmed by Marisa Willis ([id number]) on 02/03/2025 10:28:01 PM Referred By: Electronically Signed By: Marisa Willis Transcribed By: MUS Signed By Marisa Willis MD 5 1 Normal [facility] Glomerular filtration rate ( GFR) estimation in non- AmericanOrdered By: Elliot Starks on 02-03-2025 GFR/1.73 sq M.predicted among non-blacks MDRD (S/P/Bld) [Vol rate/Area] 42 mL/min/{1.73_m2} Low >=60 mL/min/1.73 m 2 [facility] Hematocrit Auto (Bld) [Volum e fraction]Ordered By: Elliot Starks on 02-03-2025 Hematocrit (Bld) [Volume fraction] 41.7 % 36.0-48.0 [facility] Hemoglobin [Mass/volume] in BloodOrdered By: Elliot Starks on 02-03-2025 Hemoglobin (Bld) [Mass/Vol] 13.9 g/dL 12.0-16.0 [facility] Laboratory - Chemistry and C hemistry - challengeOrdered By: Elliot Starks on 02-03-2025 Calcium [Mass/Vol] 10.0 mg/dL 8.5-10.1 [facility] Chloride [Moles/Vol] 101 mmol/L 98-107 [facility] CO2 [Moles/Vol] 35.2 mmol/L High 21.0-32.0 [facility] Creatinine [Mass/Vol] 1.24 mg/dL High 0.55-1.02 [facility] GFR/1.73 sq M.predicted MDRD (S/P/Bld) [Vol rate/Area] 51 mL/min/{1.73_m2} Low >=60 mL/min/1.73 m 2 [facility] Glucose [Mass/Vol] 101 mg/dL 74-106 [facility] Potassium [Moles/Vol] 3.6 mmol/L 3.5-5.1 [facility] Sodium [Moles/Vol] 143 mmol/L 136-145 [facility] Urea nitrogen [Mass/Vol] 34.0 mg/dL High 7.0-18.0 [facility] Urea nitrogen/Creatinine [Mass ratio] 27.4 mg/mg [facility] Laboratory - Hematology and Cell countsOrdered By: Elliot Starks on 02-03-2025 Immature granulocytes/100 WBC (Bld) 0.3 % 0.0-0.5 [facility] Leukocytes [#/volume] correc mary for nucleated erythrocytes in Blood by Automated counOrdered By: Elliot Starks on 02-03-2025 WBC corrected for nucl RBC Auto (Bld) [#/Vol] 7.9 10 3/uL 4.0-11.0 [facility] Lymphocytes Auto (Bld) [#/Vo l]Ordered By: Elliot Starks on 02-03-2025 Lymphocytes (Bld) [#/Vol] 2.5 10 3/uL 1.2-3.8 [facility] Lymphocytes/100 WBC Auto (Bl d)Ordered By: Elliot Starks on 02-03-2025 Lymphocytes/100 WBC (Bld) 32.2 % 20.5-60.0 [facility] MCH Auto (RBC) [Entitic mass ]Ordered By: Elliot Starks on 02-03-2025 MCH (RBC) [Entitic mass] 32.3 pg 26.7-34.0 [facility] MCHC Auto (RBC) [Mass/Vol]Or dered By: Elliot Starks on 02-03-2025 MCHC (RBC) [Mass/Vol] 33.3 g/dL 29.9-35.2 [facility] MCV Auto (RBC) [Entitic vol] Ordered By: Elliot Starks on 02-03-2025 MCV (RBC) [Entitic vol] 96.8 fL 81.0-99.0 [facility] Monocytes Auto (Bld) [#/Vol] Ordered By: Elliot Starks on 02-03-2025 Monocytes (Bld) [#/Vol] 0.8 10 3/uL 0.3-0.8 [facility] Monocytes/100 WBC Auto (Bld) Ordered By: Elliot Starks on 02-03-2025 Monocytes/100 WBC (Bld) 10.4 % 1.7-12.0 [facility] Neutrophils Auto (Bld) [#/Vo l]Ordered By: Elliot Starks on 02-03-2025 Neutrophils (Bld) [#/Vol] 4.1 10 3/uL 1.4-6.5 [facility] Neutrophils/100 WBC Auto (Bl d)Ordered By: Elliot Starks on 02-03-2025 Neutrophils/100 WBC (Bld) 52.1 % 43.0-75.0 [facility] No Panel InformationOrdered By: Elliot Starks on 02-03-2025 Eosinophils # (Auto) 0.3 10 3/uL 0.0-0.7 [facility] Immature Granulocyte # (Auto) 0.02 10 3/uL 0.00-0.03 [facility] Platelet mean volume Auto (B ld) [Entitic vol]Ordered By: Elliot Starks on 02-03-2025 Platelet mean volume (Bld) [Entitic vol] 8.8 fL Low 9.5-13.5 [facility] Platelets Auto (Bld) [#/Vol] Ordered By: Elliot Starks on 02-03-2025 Platelets (Bld) [#/Vol] 286 10 3/uL 150-450 [facility] RBC Auto (Bld) [#/Vol]Ordere d By: Elliot Starks on 02-03-2025 RBC (Bld) [#/Vol] 4.31 10 6/uL 4.20-5.40 [facility] Serum or plasma anion gap de terminationOrdered By: Elliot Starks on 02-03-2025 Anion gap [Moles/Vol] 10.4 mmol/L [facility] Basophils Auto (Bld) [#/Vol] Ordered By: Ian Connell on 01-29-2025 Basophils (Bld) [#/Vol] 0.1 10 3/uL 0.0-0.1 [facility] Basophils/100 WBC Auto (Bld) Ordered By: Ian Connell on 01-29-2025 Basophils/100 WBC (Bld) 0.9 % 0.2-2.0 [facility] Eosinophils/100 WBC Auto (Bl d)Ordered By: Ian Connell on 01-29-2025 Eosinophils/100 WBC (Bld) 5.3 % 0.9-7.0 [facility] Erythrocyte distribution wid th Auto (RBC) [Ratio]Ordered By: Ian Connell on 01-29-2025 Erythrocyte distribution width (RBC) [Ratio] 11.8 % 11.0-15.0 [facility] Globulin Calc (S) [Mass/Vol] Ordered By: Ian Connell on 01-29-2025 Globulin (S) [Mass/Vol] 4.3 g/dL [facility] Glomerular filtration rate ( GFR) estimation in non- AmericanOrdered By: Ian Connell on 01-29-2025 GFR/1.73 sq M.predicted among non-blacks MDRD (S/P/Bld) [Vol rate/Area] 31 mL/min/{1.73_m2} Low >=60 mL/min/1.73 m 2 [facility] Hematocrit Auto (Bld) [Volum e fraction]Ordered By: Ian Connell on 01-29-2025 Hematocrit (Bld) [Volume fraction] 40.4 % 36.0-48.0 [facility] Hemoglobin [Mass/volume] in BloodOrdered By: Ian Connell on 01-29-2025 Hemoglobin (Bld) [Mass/Vol] 13.7 g/dL 12.0-16.0 [facility] Laboratory - Chemistry and C hemistry - challengeOrdered By: Ian Connell on 01-29-2025 Bilirubin Ql (U) Negative NEGATIVE [facility] Glucose (U) [Mass/Vol] Negative NEGATIVE [facility] Ketones Ql (U) Negative NEGATIVE [facility] pH (U) 5.5 [pH] 5.0-9.0 [facility] Specific gravity (U) [Rel density] 1.020 1.005-1.025 [facility] Urobilinogen Qn (U) 0.2 {Zenia'U}/dL 0.2-1.0 [facility] Albumin [Mass/Vol] 3.6 g/dL 3.4-5.0 [facility] ALP [Catalytic activity/Vol] 63 U/L 46-116 [facility] ALT [Catalytic activity/Vol] 16 U/L 14-59 [facility] AST [Catalytic activity/Vol] 16 U/L 15-37 [facility] Bilirubin [Mass/Vol] 0.7 mg/dL 0.2-1.0 [facility] Calcium [Mass/Vol] 9.7 mg/dL 8.5-10.1 [facility] Chloride [Moles/Vol] 100 mmol/L 98-107 [facility] CO2 [Moles/Vol] 28.3 mmol/L 21.0-32.0 [facility] Creatinine [Mass/Vol] 1.63 mg/dL High 0.55-1.02 [facility] GFR/1.73 sq M.predicted MDRD (S/P/Bld) [Vol rate/Area] 37 mL/min/{1.73_m2} Low >=60 mL/min/1.73 m 2 [facility] Glucose [Mass/Vol] 154 mg/dL High 74-106 [facility] Potassium [Moles/Vol] 3.2 mmol/L Low 3.5-5.1 [facility] Protein [Mass/Vol] 7.9 g/dL 6.4-8.2 [facility] Sodium [Moles/Vol] 142 mmol/L 136-145 [facility] Urea nitrogen [Mass/Vol] 28.0 mg/dL High 7.0-18.0 [facility] Urea nitrogen/Creatinine [Mass ratio] 17.2 mg/mg [facility] Laboratory - Hematology and Cell countsOrdered By: Ian Connell on 01-29-2025 Immature granulocytes/100 WBC (Bld) 0.3 % 0.0-0.5 [facility] Laboratory - Specimen inform ationOrdered By: Ian Connell on 01-29-2025 Appearance (U) CLEAR CLEAR [facility] Color (U) YELLOW YELLOW [facility] Laboratory - UrinalysisOrder ed By: Ian Connell on 01-29-2025 Leukocyte esterase Test strip Ql (U) Negative NEGATIVE [facility] Mucus Ql (Urine sed) TRACE Abnormal NONE SEEN [facility] Nitrite Ql (U) Negative NEGATIVE [facility] Protein Ql (U) Negative NEG/TRACE [facility] Leukocytes [#/volume] correc mary for nucleated erythrocytes in Blood by Automated counOrdered By: Ian Connell on 01-29-2025 WBC corrected for nucl RBC Auto (Bld) [#/Vol] 7.7 10 3/uL 4.0-11.0 [facility] Lymphocytes Auto (Bld) [#/Vo l]Ordered By: Ian Connell on 01-29-2025 Lymphocytes (Bld) [#/Vol] 2.9 10 3/uL 1.2-3.8 [facility] Lymphocytes/100 WBC Auto (Bl d)Ordered By: Ian Connell on 01-29-2025 Lymphocytes/100 WBC (Bld) 38.2 % 20.5-60.0 [facility] MCH Auto (RBC) [Entitic mass ]Ordered By: Ian Connell on 01-29-2025 MCH (RBC) [Entitic mass] 32.8 pg 26.7-34.0 [facility] MCHC Auto (RBC) [Mass/Vol]Or dered By: Ian Connell on 01-29-2025 MCHC (RBC) [Mass/Vol] 33.9 g/dL 29.9-35.2 [facility] MCV Auto (RBC) [Entitic vol] Ordered By: Ian Connell on 01-29-2025 MCV (RBC) [Entitic vol] 96.7 fL 81.0-99.0 [facility] Monocytes Auto (Bld) [#/Vol] Ordered By: Ian Connell on 01-29-2025 Monocytes (Bld) [#/Vol] 0.7 10 3/uL 0.3-0.8 [facility] Monocytes/100 WBC Auto (Bld) Ordered By: Ian Connell on 01-29-2025 Monocytes/100 WBC (Bld) 9.5 % 1.7-12.0 [facility] Neutrophils Auto (Bld) [#/Vo l]Ordered By: Ian Connell on 01-29-2025 Neutrophils (Bld) [#/Vol] 3.5 10 3/uL 1.4-6.5 [facility] Neutrophils/100 WBC Auto (Bl d)Ordered By: Ian Connell on 01-29-2025 Neutrophils/100 WBC (Bld) 45.8 % 43.0-75.0 [facility] No Panel InformationOrdered By: Ian Connell on 01-29-2025 Urine Bacteria TRACE #/HPF Abnormal NONE SEEN [facility] Urine Occult Blood Negative NEGATIVE [facility] Urine Other Casts NONE SEEN #/LPF NONE SEEN [facility] Urine Other Crystals None Seen #/HPF None Seen [facility] Urine RBC 2-5 #/HPF Abnormal 0-2 [facility] Urine Squamous Epithelial Cells FEW #/LPF Abnormal NONE/RARE [facility] Urine WBC 2-5 #/HPF Abnormal NONE SEEN [facility] Eosinophils # (Auto) 0.4 10 3/uL 0.0-0.7 [facility] Immature Granulocyte # (Auto) 0.02 10 3/uL 0.00-0.03 [facility] Troponin I High Sensitivity 9.8 pg/mL 4.0-51.3 [facility] Comment on above: CUT-OFF POINTS HAVE BEEN ESTABLISHED BASED ON THE FOURTHUNIVERSAL DEFINITION OF MYOCARDIAL INFARCTION. THE UPPERREFERENCE LIMIT (URL) OF TROPONIN, DEFINED THE 99THPERCENTILE OF cTnI DISTRIBUTION IN A REFERENCE POPULATION,HAS BEEN CONFIRMED THE DECISION THRESHOLD FOR MIDIAGNOSIS.99TH PERCENTILE = 51.4 PG/MLNOTE: HIGH-SENSITIVITY TROPONIN ASSAY IS NOT INTENDED TO BEUSED IN ISOLATION BUT SHOULD BE INTERPRETED IN CONJUNCTIONWITH OTHER DIAGNOSTIC AND CLINICAL INFORMATION. Platelet mean volume Auto (B ld) [Entitic vol]Ordered By: Ian Connell on 01-29-2025 Platelet mean volume (Bld) [Entitic vol] 9.0 fL Low 9.5-13.5 [facility] Platelets Auto (Bld) [#/Vol] Ordered By: Ian Connell on 01-29-2025 Platelets (Bld) [#/Vol] 273 10 3/uL 150-450 [facility] RBC Auto (Bld) [#/Vol]Ordere d By: Ian Ko on 01-29-2025 RBC (Bld) [#/Vol] 4.18 10 6/uL Low 4.20-5.40 [facility] Serum or plasma albumin/glob ulin mass ratioOrdered By: Ian Connell on 01-29-2025 Albumin/Globulin [Mass ratio] 0.8 {ratio} [facility] Serum or plasma anion gap de terminationOrdered By: Ian Connell on 01-29-2025 Anion gap [Moles/Vol] 16.9 mmol/L [facility] C Urineon 01-27-2025 Bacteria identified Cx Nom (U) Microbiology PROCEDURE: Urine Culture [R1] SOURCE: U CleanCatch BODY SITE: COLLECTED DATE/TIME: 01/25/2025 09:18 EDT RECEIVED DATE/TIME: 01/25/2025 18:16 EDT START DATE/TIME: 01/25/2025 18:16 EDT FREE TEXT SOURCE: Maira E Osman PA-C, PA-C, Maria E FINAL [...] This test was performed at: [facility], [address] [place] [address], [facility]- , , Normal [facility] Comment on above: Performed By: #### 2 [id number] #### [facility] [address] [place] [address] Ambulatory Visit Summaryon 0 01-25-2025 Ambulatory Visit [...] 40 mg Cap-DR) potassium chloride (Potassium Chloride (Uza-Idqd-Ajj 10) 10 mEq oral tablet, extended release) [...] E Osman PA-C Where: [facility] [address] [address]- Medications What How Much When Why Instructions [...] 1 Capsules Unchanged potassium chloride (Potassium Chloride (Wao-Dbzo-Fbs 10) 10 mEq oral tablet, extended release) [...] signed up for this yet, please contact [employer] at [phone] to get signed up today. Language Information Language assistance services are available as needed. Normal [facility] Urology Office/Clinic Noteon 01-25-2025 Urology Office/Clinic Note [...] Urnls Dip Stick Auto w/o Microscopy POC 37133 2. Frequent UTI, (N39.0: Urinary tract infection, [...] 1 month, then 2x a week afterwards, [facility]/pharmacy #[id number], 165, cm, 06/22/24 13:05:00 EST, Height/Length Dosing, 80.7, kg, 06/22/24 13:05:00 EST, Weight Dosing estradiol topical, See Instructions, 42.5 gm, Refill(s) 2, Apply pea sized amount to urethra/vagina 3x a week for 1 month, then 2x a week afterwards, [facility]/pharmacy #[id number], 165, cm, 01/25/25 8:16:00 EDT, Height/Length Dosing, 81.4, kg, 10/26/24 8:10:00 EDT, Weight Dosing nitrofurantoin, 100 mg = 1 cap(s), Oral, BID, X 7 day(s), # 14 cap(s), Refills(s) 0, Pharmacy: [facility]/pharmacy #[id number], 165, cm, 01/25/25 8:16:00 EDT, Height/Length Dosing, 81.4, kg, 10/26/24 8:10:00 EDT, Weight Dosing Urine Culture Urnls Dip Stick Auto w/o Microscopy POC 26576 3. History of kidney stones (Z87.442: Personal history of urinary calculi) (more content not included)... Normal [facility] Comment on above: Result Comment: Elec tronically Signed By: Jacqui MOTT, Maria E\.br\Date and Time Signed: 01/25/25 11:51 EDT Glomerular filtration rate ( GFR) estimation in non- AmericanOrdered By: Elliot Starks on 12-29-2024 GFR/1.73 sq M.predicted among non-blacks MDRD (S/P/Bld) [Vol rate/Area] 56 mL/min/{1.73_m2} Low >=60 mL/min/1.73 m 2 [facility] Laboratory - Chemistry and C hemistry - challengeOrdered By: Elliot Starks on 12-29-2024 Calcium [Mass/Vol] 9.6 mg/dL 8.5-10.1 [facility] Chloride [Moles/Vol] 105 mmol/L 98-107 [facility] CO2 [Moles/Vol] 32.8 mmol/L High 21.0-32.0 [facility] Creatinine [Mass/Vol] 0.96 mg/dL 0.55-1.02 [facility] GFR/1.73 sq M.predicted MDRD (S/P/Bld) [Vol rate/Area] mL/min/{1.73_m2} >=60 mL/min/1.73 m 2 [facility] Glucose [Mass/Vol] 93 mg/dL 74-106 [facility] Potassium [Moles/Vol] 4.3 mmol/L 3.5-5.1 [facility] Sodium [Moles/Vol] 143 mmol/L 136-145 [facility] Urea nitrogen [Mass/Vol] 25.0 mg/dL High 7.0-18.0 [facility] Urea nitrogen/Creatinine [Mass ratio] 26.0 mg/mg [facility] Bilirubin Ql (U) Negative [facility] Glucose (U) [Mass/Vol] Negative [facility] Ketones Ql (U) Negative [facility] pH (U) 7.5 [pH] [facility] Specific gravity (U) [Rel density] 1.000 [facility] Urobilinogen (U) [Mass/Vol] 0.2 mg/dL [facility] Laboratory - Specimen inform ationOrdered By: Elliot Starks on 12-29-2024 Appearance (U) clear [facility] Color (U) yellow [facility] Laboratory - UrinalysisOrder ed By: Elliot Starks on 12-29-2024 Leukocyte esterase Test strip Ql (U) Negative [facility] Nitrite Ql (U) Negative [facility] Protein Ql (U) Negative [facility] No Panel InformationOrdered By: Elliot Starks on 12-29-2024 Urine Occult Blood Negative [facility] Serum or plasma anion gap de terminationOrdered By: Elliot Starks on 12-29-2024 Anion gap [Moles/Vol] 9.5 mmol/L [facility] No Panel Informationon 12-27 [facility] Bacteria [...] , Intermediate >32 , Resistant >64 Abnormal [facility] Comment on above: Performed By: #### 2 4356-8 #### [facility] CLIA [id number] [address] [facility] #### 630-4 #### [facility] CLIA [id number] [address] [place], [place] [address] [address] ED NOTEon 12-19-2024 ED NOTE HNO ID: [id number] Author: ADAM PORTILLO RN Service: ? Author Type: Registered Nurse Type: ED Notes Filed: 12/19/2024 01:18 Note Text: Patient discharged per MD orders. Discharge instructions reviewed. Pt encouraged to return to ED if worsening signs or symptoms occur. Prescriptions called into pharmacy of choice. Follow up care discussed. Pt left ED in stable condition. Normal [facility] HIGH SENSITIVITY TROPONIN T (THIRD) 3 HRS AFTER INITIALon 12-19-2024 Troponin T.cardiac High sensitivity method [Mass/Vol] 13 ng/L High <12 [facility] Comment on above: Order Comment: Speci men Type: BLOOD SPECIMENOrdering Facility: [facility] Address: [address] [place] [address] Performed By: #### 2 4356-8 #### [facility] CLIA [id number] [address] [place] [address] [place] #### 630-4 #### [facility] CLIA [id number] [address] [place] Laboratory - Chemistry and C hemistry - challengeOrdered By: Govind Snow on 12-19-2024 Bilirubin Ql (U) Negative Negative [facility] Glucose (U) [Mass/Vol] Negative Trace , Negative [facility] Ketones Ql (U) Negative Negative, Trace [facility] pH (U) 6.0 [pH] 5.0-8.0 [facility] Specific gravity (U) [Rel density] 1.028 1.005-1.030 [facility] Laboratory - Specimen inform ationOrdered By: Govind Snow on 12-19-2024 Appearance (U) Turbid Abnormal Clear [facility] Color (U) Light Yellow yellow [facility] Laboratory - UrinalysisOrder ed By: Govind Snow on 12-19-2024 Hyaline casts LM Ql (Urine sed) 1-3 /LPF Abnormal 0 /LPF [facility] Leukocyte esterase Test strip Ql (U) 500 Felipe/uL Abnormal Negative, 25 Felipe/uL [facility] Nitrite Ql (U) 2+ Abnormal Negative [facility] Protein Ql (U) Negative Trace, Negative [facility] No Panel InformationOrdered By: Govind Snow on 12-19-2024 Troponin T Hi Sens Cardiac Interven 13 ng/L High <12 [facility] Urine Bacteria Rare [HPF] Abnormal None Seen [facility] Urine Occult Blood Trace Negative, Trace [facility] Urine RBC 6-10 /HPF Abnormal 0-3 /HPF [facility] Urine Squamous Epithelial Cells Few [HPF] [facility] Urine Urobilinogen Normal Normal [facility] Urine WBC >25 /HPF Abnormal 0-5 /HPF [facility] Urinalysis complete panel (U )on 12-19-2024 Bacteria LM.HPF (Urine sed) [#/Area] Rare Abnormal None Seen [facility] Comment on above: Order Comment: Speci men Type: URINE SPECIMEN Ordering Facility: [facility] Address: [address] [place] [address] Performed By: #### 2 4356-8 #### [facility] CLIA [id number] [address] [place] [address] [place] #### 630-4 #### [facility] CLIA [id number] [address] [place] [address] [place] Bilirubin Ql (U) Negative Normal Negative [facility] Comment on above: Order Comment: Speci men Type: URINE SPECIMEN Ordering Facility: [facility] Address: [address] [place] [address] Performed By: #### 2 4356-8 #### [facility] CLIA [id number] [address] [place] [address] [place] #### 630-4 #### [facility] CLIA [id number] [address] [place] [address] [place] Clarity (Unsp spec) Turbid Abnormal Clear [facility] Comment on above: Order Comment: Speci men Type: URINE SPECIMEN Ordering Facility: [facility] Address: [address] [place] [address] Performed By: #### 2 4356-8 #### [facility] IA [id number] [address] [place] [address] [place] #### 630-4 #### [facility] CLIA [id number] [address] [place] [address] [place] Color (U) Light Yellow Normal yellow [facility] Comment on above: Order Comment: Speci men Type: URINE SPECIMEN Ordering Facility: [facility] Address: [address] [place] [address] Performed By: #### 2 4356-8 #### [facility] CLIA [id number] [address] [place] [address] [place] #### 630-4 #### [facility] CLIA [id number] [address] [place] [address] [place] Epithelial cells LM.HPF (Urine sed) [#/Area] Few [facility] Comment on above: Order Comment: Speci men Type: URINE SPECIMEN Ordering Facility: [facility] Address: [address] [place] [address] Performed By: #### 2 4356-8 #### [facility] CLIA [id number] [address] [place] [address] [place] #### 630-4 #### [facility] CLIA [id number] [address] [place] [address] [place] Glucose Test strip (U) [Mass/Vol] Negative Normal Trace, Negative [facility] Comment on above: Order Comment: Speci men Type: URINE SPECIMEN Ordering Facility: [facility] Address: [address] [place] [address] Performed By: #### 2 4356-8 #### [facility] IA [id number] [address] [place] [address] [place] #### 630-4 #### [facility] CLIA [id number] [address] [place] [address] [place] Hemoglobin Ql (U) Trace Normal Negative, Trace [facility] Comment on above: Order Comment: Speci men Type: URINE SPECIMEN Ordering Facility: [facility] Address: [address] [place] [address] Performed By: #### 2 4356-8 #### [facility] IA [id number] [address] [place] [address] [place] #### 630-4 #### [facility] CLIA [id number] [address] [place] [address] [place] Hyaline casts (Urine sed) [#/Area] 1-3 /LPF Abnormal 0 /LPF [facility] Comment on above: Order Comment: Speci men Type: URINE SPECIMEN Ordering Facility: [facility] Address: [address] [place] [address] Performed By: #### 2 4356-8 #### [facility] CLIA [id number] [address] [place] [address] [place] #### 630-4 #### [facility] CLIA [id number] [address] [place] [address] [place] Ketones Ql (U) Negative Normal Negative, Trace [facility] Comment on above: Order Comment: Speci men Type: URINE SPECIMEN Ordering Facility: [facility] Address: [address] [place] [address] Performed By: #### 2 4356-8 #### [facility] CLIA [id number] [address] [place] [address] [place] #### 630-4 #### [facility] CLIA [id number] [address] [place] [address] [place] Leukocyte esterase Test strip Ql (U) 500 Felipe/uL Abnormal Negative, 25 Felipe/uL [facility] Comment on above: Order Comment: Speci men Type: URINE SPECIMEN Ordering Facility: [facility] Address: [address] [place] [address] Performed By: #### 2 4356-8 #### [facility] CLIA [id number] [address] [place] [address] [place] #### 630-4 #### [facility] CLIA [id number] [address] [place], [place] [id number] [place] Nitrite Ql (U) 2+ Abnormal Negative [facility] Comment on above: Order Comment: Speci men Type: URINE SPECIMEN Ordering Facility: [facility] Address: [address] [place] [address] Performed By: #### 2 4356-8 #### [facility] CLIA [id number] [address] [place] [address] [place] #### 630-4 #### [facility] CLIA [id number] [address] [place] [address] [place] pH (U) 6.0 [pH] Normal 5.0-8.0 [facility] Comment on above: Order Comment: Speci men Type: URINE SPECIMEN Ordering Facility: [facility] Address: [address] [place] [address] Performed By: #### 2 4356-8 #### [facility] CLIA [id number] [address] [place] [address] [place] #### 630-4 #### [facility] CLIA [id number] [address] [place] [address] [place] Protein (U) [Mass/Vol] Negative Normal Trace , Negative [facility] Comment on above: Order Comment: Speci men Type: URINE SPECIMEN Ordering Facility: [facility] Address: [address] [place] [address] Performed By: #### 2 4356-8 #### [facility] CLIA [id number] [address] [place] [address] [place] #### 630-4 #### [facility] CLIA [id number] [address] [place] [address] [place] RBC LM.HPF (Urine sed) [#/Area] 6-10 /HPF Abnormal 0-3 /HPF [facility] Comment on above: Order Comment: Speci men Type: URINE SPECIMEN Ordering Facility: [facility] Address: [address] [place] [address] Performed By: #### 2 4356-8 #### [facility] CLIA [id number] [address] [place] [address] [place] #### 630-4 #### [facility] CLIA [id number] [address] [place] [address] [place] Specific gravity (U) [Rel density] 1.028 Normal 1.005-1.030 [facility] Comment on above: Order Comment: Speci men Type: URINE SPECIMEN Ordering Facility: [facility] Address: [address] [place] [address] Performed By: #### 2 4356-8 #### [facility] CLIA [id number] [address] [place] [address] [place] #### 630-4 #### [facility] CLIA [id number] [address] [place] [address] Urobilinogen Ql (U) Normal Normal Normal [facility] Comment on above: Order Comment: Speci men Type: URINE SPECIMEN Ordering Facility: [facility] Address: [address] [place] [address] Performed By: #### 2 4356-8 #### [facility] IA [id number] [address] [place] [address] [place] #### 630-4 #### [facility] CLIA [id number] [address] [place] [address] [place] WBC LM.HPF (Urine sed) [#/Area] /[HPF] Abnormal 0-5 /HPF [facility] Comment on above: Order Comment: Speci men Type: URINE SPECIMEN Ordering Facility: [facility] Address: [address] [place] [address] Performed By: #### 2 4356-8 #### [facility] CLIA [id number] [address] [place] [address] [place] #### 630-4 #### [facility] CLIA [id number] [address] [place] [address] [place] ALLIED HEALTHon 12-18-2024 ALLIED HEALTH HNO ID: [id number] Author: VAN WAHL Tech Service: Radiology Author Type: Director Electrical Engineering Type: Allied Health Filed: 12/18/2024 22:22 Note [...] PATIENT PRESENTS WITH AN IMPLANTABLE OR ATTACHED BRAKE RIDER: No RADIOLOGY DEPARTMENT: CT; Exam(s) Completed: Brain and PE Study PERIPHERAL IV DATA: Inpatient: see LDA documentation SIGNED BY: Cherrie Martin December 18, 2024 9:44 PM Normal [facility] Basophils Auto (Bld) [#/Vol] Ordered By: Govind Snow on 12-18-2024 Basophils (Bld) [#/Vol] 0.09 10*3/uL <0.11 [facility] Basophils/100 WBC Auto (Bld) Ordered By: Govind Snow on 12-18-2024 Basophils/100 WBC (Bld) 1.2 % [facility] Blood manual differential co mment interpretation narrativeOrdered By: Govind Snow on 12-18-2024 Manual differential comment Murtaza (Bld) [Interp] Auto [facility] CBC W Auto Differential pane l (Bld)on 12-18-2024 Basophils (Bld) [#/Vol] 0.09 10*3/uL Normal <0.11 [facility] Comment on above: Order Comment: Speci valeri Type: BLOOD SPECIMEN Ordering Facility: [facility] Address: [address] [place] [address] Performed By: #### 5 7021-8 #### [facility] CLIA [id number] [address] [place] [address] [place] Basophils/100 WBC (Bld) 1.2 % Normal [facility] Comment on above: Order Comment: Skyler trammell Type: BLOOD SPECIMEN Ordering Facility: [facility] Address: [address] [place] [address] Performed By: #### 5 7021-8 #### [facility] CLIA [id number] [address] [place] [address] [place] Differential cell count method Nom (Bld) Auto Normal [facility] Comment on above: Order Comment: Speci men Type: BLOOD SPECIMEN Ordering Facility: [facility] Address: [address] [place] [address] Performed By: #### 5 7021-8 #### [facility] CLIA [id number] [address] [place] [address] [place] Eosinophils (Bld) [#/Vol] 0.34 10*3/uL Normal <0.46 [facility] Comment on above: Order Comment: Speci men Type: BLOOD SPECIMEN Ordering Facility: [facility] Address: [address] [place] [address] Performed By: #### 5 7021-8 #### [facility] IA [id number] [address] [place] [address] [place] Eosinophils/100 WBC (Bld) 4.6 % Normal [facility] Comment on above: Order Comment: Speci men Type: BLOOD SPECIMEN Ordering Facility: [facility] Address: [address] [place] [address] Performed By: #### 5 7021-8 #### [facility] IA [id number] [address] [place] Erythrocyte distribution width (RBC) [Ratio] 11.9 % Normal 11.5-15.0 [facility] Comment on above: Order Comment: Speci men Type: BLOOD SPECIMEN Ordering Facility: [facility] Address: [address] [place] [address] Performed By: #### 5 7021-8 #### [facility] IA [id number] [address] [place] [address] [place] Hematocrit (Bld) [Volume fraction] 36.9 % Normal 36.0-46.0 [facility] Comment on above: Order Comment: Speci men Type: BLOOD SPECIMEN Ordering Facility: [facility] Address: [address] [place] [address] Performed By: #### 5 7021-8 #### [facility] IA [id number] [address] [place] [address] [place] Hemoglobin (Bld) [Mass/Vol] 12.3 g/dL Normal 11.5-15.5 [facility] Comment on above: Order Comment: Speci men Type: BLOOD SPECIMEN Ordering Facility: [facility] Address: [address] [place] [address] Performed By: #### 5 7021-8 #### [facility] IA [id number] [address] [place] [address] [place] Immature granulocytes (Bld) [#/Vol] 10*3/uL Normal <0.10 [facility] Comment on above: Order Comment: Speci men Type: BLOOD SPECIMEN Ordering Facility: [facility] Address: [address] [place] [address] Performed By: #### 5 7021-8 #### [facility] IA [id number] [address] [place] [address] [place] Immature granulocytes/100 WBC (Bld) 0.1 % Normal [facility] Comment on above: Order Comment: Speci men Type: BLOOD SPECIMEN Ordering Facility: [facility] Address: [address] [place] [address] Performed By: #### 5 7021-8 #### [facility] IA [id number] [address] [place] [address] [place] Lymphocytes (Bld) [#/Vol] 3.86 10*3/uL Normal 1.00-4.00 [facility] Comment on above: Order Comment: Speci men Type: BLOOD SPECIMEN Ordering Facility: [facility] Address: [address] [place] [address] Performed By: #### 5 7021-8 #### [facility] IA [id number] [address] [place] [address] [place] Lymphocytes/100 WBC (Bld) 51.7 % Normal [facility] Comment on above: Order Comment: Speci men Type: BLOOD SPECIMEN Ordering Facility: [facility] Address: [address] [place] [address] Performed By: #### 5 7021-8 #### [facility] IA [id number] [address] [place], [place] [address] [place] [address] [place] MCH (RBC) [Entitic mass] 32.5 pg Normal 26.0-34.0 [facility] Comment on above: Order Comment: Speci men Type: BLOOD SPECIMEN Ordering Facility: [facility] Address: [address] [place] [address] Performed By: #### 5 7021-8 #### [facility] IA [id number] [address] [place] [address] [place] MCHC (RBC) [Mass/Vol] 33.3 g/dL Normal 30.5-36.0 [facility] Comment on above: Order Comment: Speci men Type: BLOOD SPECIMEN Ordering Facility: [facility] Address: [address] [place] [address] Performed By: #### 5 7021-8 #### [facility] IA [id number] [address] [place] [address] [place] MCV (RBC) [Entitic vol] 97.4 fL Normal 80.0-100.0 [facility] Comment on above: Order Comment: Speci men Type: BLOOD SPECIMEN Ordering Facility: [facility] Address: [address] [place] [address] Performed By: #### 5 7021-8 #### [facility] IA [id number] [address] [place] Monocytes (Bld) [#/Vol] 0.70 10*3/uL Normal <0.87 [facility] Comment on above: Order Comment: Speci men Type: BLOOD SPECIMEN Ordering Facility: [facility] Address: [address] [place] [address] Performed By: #### 5 7021-8 #### [facility] IA [id number] [address] [place] [address] [place] Monocytes/100 WBC (Bld) 9.4 % Normal [facility] Comment on above: Order Comment: Speci men Type: BLOOD SPECIMEN Ordering Facility: [facility] Address: [address] [place] [address] Performed By: #### 5 7021-8 #### [facility] CLIA [id number] [address] [place] [address] [place] Neutrophils (Bld) [#/Vol] 2.47 10*3/uL Normal 1.45-7.50 [facility] Comment on above: Order Comment: Speci men Type: BLOOD SPECIMEN Ordering Facility: [facility] Address: [address] [place] [address] Performed By: #### 5 7021-8 #### [facility] IA [id number] [address] [place] [address] [place] Neutrophils/100 WBC (Bld) 33.0 % Normal [facility] Comment on above: Order Comment: Speci men Type: BLOOD SPECIMEN Ordering Facility: [facility] Address: [address] [place] [address] Performed By: #### 5 7021-8 #### [facility] IA [id number] [address] [place] [address] [place] Nucleated RBC (Bld) [#/Vol] 10*3/uL Normal <0.01 [facility] Comment on above: Order Comment: Speci men Type: BLOOD SPECIMEN Ordering Facility: [facility] Address: [address] [place] [address] Performed By: #### 5 7021-8 #### [facility] CLIA [id number] [address] [place] [address] [place] Nucleated RBC/100 WBC (Bld) [Ratio] 0.0 /100 WBC Normal [facility] Comment on above: Order Comment: Speci men Type: BLOOD SPECIMEN Ordering Facility: [facility] Address: [address] [place] [address] Performed By: #### 5 7021-8 #### [facility] IA [id number] [address] [place] [address] [place] Platelet mean volume (Bld) [Entitic vol] 8.7 fL Low 9.0-12.7 [facility] Comment on above: Order Comment: Speci men Type: BLOOD SPECIMEN Ordering Facility: [facility] Address: [address] [place] [address] Performed By: #### 5 7021-8 #### [facility] IA [id number] [address] [place] [address] [place] Platelets (Bld) [#/Vol] 209 10*3/uL Normal 150-400 [facility] Comment on above: Order Comment: Speci men Type: BLOOD SPECIMEN Ordering Facility: [facility] Address: [address] [place] [address] Performed By: #### 5 7021-8 #### [facility] IA [id number] [address] [place] [address] [place] RBC (Bld) [#/Vol] 3.79 10*6/uL Low 3.90-5.20 [facility] Comment on above: Order Comment: Speci men Type: BLOOD SPECIMEN Ordering Facility: [facility] Address: [address] [place] [address] Performed By: #### 5 7021-8 #### [facility] IA [id number] [address] [place] [address] [place] WBC (Bld) [#/Vol] 7.47 10*3/uL Normal 3.70-11.00 [facility] Comment on above: Order Comment: Speci men Type: BLOOD SPECIMEN Ordering Facility: [facility] Address: [address] [place] [address] Performed By: #### 5 7021-8 #### [facility] IA [id number] [address] [place] [address] [place] CK SerPl-cCncon 12-18-2024 CK [Catalytic activity/Vol] 37 U/L Low 42-196 [facility] Comment on above: Order Comment: Speci men Type: BLOOD SPECIMEN Ordering Facility: [facility] Address: [address], [place] [address] Performed By: #### 2 157-6, 16532-4, 3040-3, 19139-9 #### [facility] CLIA [id number] [address] [facility] [place], [place] [address] [place] [address] [place] [address] [place] [address] BRAIN WO IVCONon 12-19-[address] BRAIN WO IVCON * * *Final Report* * * DATE OF EXAM: Dec 18 2024 10:24PM [facility] 0504 - CT BRAIN WO [...] Other: No depressed skull fracture is seen. Application Project Leader (topogram) images: Degenerative spine changes noted. Non-diagnostic otherwise. IMPRESSION: Brain CT shows no evidence of an acute intracranial abnormality. Chronic intracranial changes and other details above. Testing Analyst: SHIVANI Transcribe Date/Time: Dec 18 2024 11:53P Dictated by : LOVE VALENCIA MD This examination was interpreted and the report reviewed and electronically signed by: LOVE VALENCIA MD on Dec 19 2024 12:12AM EST [id number] N Normal [facility] CTA CHEST (NON GATED) W IVCO N PEon 12-18-2024 CTA CHEST (NON GATED) W IVCON PE * * *Final Report* * * DATE OF EXAM: Dec 18 2024 10:27PM [facility] 0564 - CTA CHEST (NON [...] process. 3. Calcified granulomas and lymph nodes. Testing Analyst: SHIVANI Transcribe Date/Time: Dec 19 2024 12:32A Dictated by : JASON HINKLE MD This examination was interpreted and the report reviewed and electronically signed by: JASON HINKLE MD on Dec 19 2024 12:45AM EST [id number] N Normal [facility] Comprehensive metabolic 2000 panelon 12-18-2024 Albumin [Mass/Vol] 3.7 g/dL Low 3.9-4.9 [facility] Comment on above: Order Comment: Speci men Type: BLOOD SPECIMEN Ordering Facility: [facility] Address: [address] [place], [place] [address] Performed By: #### 2 157-6, 32029-7, 3040-3, 04602-1 #### [facility] CLIA [id number] [address] [place] [address] [place] [facility] ALP [Catalytic activity/Vol] 55 U/L Normal 34-123 [facility] Comment on above: Order Comment: Speci men Type: BLOOD SPECIMEN Ordering Facility: [facility] Address: [address] [place] [address] Performed By: #### 2 157-6, 80935-6, 3040-3, 33414-9 #### [facility] CLIA [id number] [address] [place] [address] [place] ALT [Catalytic activity/Vol] 9 U/L Normal 7-38 [facility] Comment on above: Order Comment: Speci men Type: BLOOD SPECIMEN Ordering Facility: [facility] Address: [address], [place] [address] Performed By: #### 2 157-6, 29297-2, 3040-3, 60849-9 #### [facility] CLIA [id number] [address] [place] [address] [place] Anion gap [Moles/Vol] 15 mmol/L Normal 8-15 [facility] Comment on above: Order Comment: Speci men Type: BLOOD SPECIMEN Ordering Facility: [facility] Address: [address] [place] [address] Performed By: #### 2 157-6, 39085-3, 3040-3, 43967-8 #### [facility] CLIA [id number] [address] [place] [address] [place] AST [Catalytic activity/Vol] 16 U/L Normal 13-35 [facility] Comment on above: Order Comment: Speci men Type: BLOOD SPECIMEN Ordering Facility: [facility] Address: [address] [place], [place] [address] Performed By: #### 2 157-6, 36100-6, 3040-3, 42416-4 #### [facility] CLIA [id number] [address] [place] [address] [place] Bilirubin [Mass/Vol] 0.2 mg/dL Normal 0.2-1.3 [facility] Comment on above: Order Comment: Speci men Type: BLOOD SPECIMEN Ordering Facility: [facility] Address: [address] [place], [place] [address] Performed By: #### 2 157-6, 04587-2, 3040-3, 09923-6 #### [facility] CLIA [id number] [address] [place] [address] [place] Calcium [Mass/Vol] 9.4 mg/dL Normal 8.5-10.2 [facility] Comment on above: Order Comment: Speci men Type: BLOOD SPECIMEN Ordering Facility: [facility] Address: [address] [place], [place] [address] Performed By: #### 2 157-6, 37431-1, 3040-3, 70068-9 #### [facility] CLIA [id number] [address] [place] [address] [place] Chloride [Moles/Vol] 99 mmol/L Normal 98-107 [facility] Comment on above: Order Comment: Speci men Type: BLOOD SPECIMEN Ordering Facility: [facility] Address: [address] [place] [address] Performed By: #### 2 157-6, 50340-6, 3040-3, 83500-2 #### [facility] CLIA [id number] [address] [place] [address] [place] CO2 [Moles/Vol] 24 mmol/L Normal 22-30 [facility] Comment on above: Order Comment: Speci men Type: BLOOD SPECIMEN Ordering Facility: [facility] Address: [address] [place] [address] Performed By: #### 2 157-6, 58940-2, 3040-3, 72278-6 #### [facility] CLIA [id number] [address] [place] [address] [place] Creatinine [Mass/Vol] 1.24 mg/dL High 0.58-0.96 [facility] Comment on above: Order Comment: Speci men Type: BLOOD SPECIMEN Ordering Facility: [facility] Address: [address] [place] [address] Performed By: #### 2 157-6, 66323-6, 3040-3, 50615-2 #### [facility] CLIA [id number] [address] [place] [address] [place] eGFRcr SerPlBld CKD-EPI 2020 45 mL/min/1.73m??? Low >=60 [facility] Comment on above: Order Comment: Speci men Type: BLOOD SPECIMEN Ordering Facility: [facility] Address: [address] [place] [address] Result Comment: Vicky mated Glomerular Filtration Rate [...] actual GFR. Performed By: #### 2 157-6, 47006-5, 0-3, 92898-1 #### [facility] CLIA [id number] [address] [place] [address] [place] Glucose [Mass/Vol] 153 mg/dL High 74-99 [facility] Comment on above: Order Comment: Skyler trammell Type: BLOOD SPECIMEN Ordering Facility: [facility] Address: [address] [place] [address] Result Comment: The [place] [employer] (ADA) provides guidance for cutoff [...] Standards of Medical Care in Diabetes 2016, [place] [employer]. Diabetes Care. 2016.39(Suppl 1). Performed By: #### 2 157-6, 79288-5, 0-3, 57829-4 #### [facility] CLIA [id number] [address] [place] [address] [place] Potassium [Moles/Vol] 3.1 mmol/L Low 3.7-5.1 [facility] Comment on above: Order Comment: Skyler trammell Type: BLOOD SPECIMEN Ordering Facility: [facility] Address: [address] [place] [address] Performed By: #### 2 157-6, 39580-2, 0-3, 57173-5 #### [facility] CLIA [id number] [address] [place] [address] [place] Protein [Mass/Vol] 6.4 g/dL Normal 6.3-8.0 [facility] Comment on above: Order Comment: Speci men Type: BLOOD SPECIMEN Ordering Facility: [facility] Address: [address] [place], [place] [address] Performed By: #### 2 157-6, 12108-5, 3040-3, 54998-7 #### [facility] CLIA [id number] [address] [place] [address] [place] Sodium [Moles/Vol] 138 mmol/L Normal 136-144 [facility] Comment on above: Order Comment: Speci men Type: BLOOD SPECIMEN Ordering Facility: [facility] Address: [address] [place], [place] [address] Performed By: #### 2 157-6, 09773-5, 3040-3, 29596-0 #### [facility] CLIA [id number] [address] [place] [address] [place] Urea nitrogen [Mass/Vol] 22 mg/dL High 7- [facility] Comment on above: Order Comment: Speci men Type: BLOOD SPECIMEN Ordering Facility: [facility] Address: [address] [place] [address] Performed By: #### 2 157-6, 33911-0, 3040-3, 60464-5 #### [facility] CLIA [id number] [address] [place] [address] [facility] ED NOTEon 12-18-2024 ED NOTE HNO ID: [id number] Author: ISHMAEL GARCIA RN Service: ? Author Type: Registered Nurse Type: ED Notes Filed: 12/18/2024 20:17 Note Text: Bed: ED-12 Expected date: Expected time: Means of arrival: Comments: Normal [facility] ED PROV NOTEon 12-18-2024 ED PROV NOTE HNO ID: [id number] Author: GOVIND SNOW DO Service: ? Author [...] follow-up Counse (more content not included)... Normal [facility] EKGon 12-18-2024 Electrocardiogram Ventricular Rate : 5 3 BPM Atrial Rate : 53 BPM P-R Interval : 255 ms QRS Duration : 125 ms Q-T Interval : 458 ms QTC Calculation(Bazett) : 430 ms Calculated P Ellsworth : 231 degrees Calculated R Ellsworth : -23 degrees Calculated T Ellsworth : 117 degrees Sinus or ectopic atrial rhythm Prolonged UT intervalAbnormal ECG Confirmed by GOVIND SNOW DO ([id number]) on 12/19/2024 1:04:30 AM NAME : BETTIE BURNS PID : [id number] : 1945 Gender : Female Race : ORD : Procedure Date : Dec 18 2024 20:27:32 Edit Date : Dec 19 2024 01:04:35 Diagnosis: Sinus or ectopic atrial rhythm Prolonged UT intervalAbnormal ECG Confirmed by GOVIND SNOW DO ([id number]) on 12/19/2024 1:04:30 AM Test Reason : Location : 302 : ED AVED-12 Overread By : GOVIND SNOW DO Edited By : GOVIND SNOW DO Referred By : , Acquired by : , Normal [facility] Eosinophils/100 WBC Auto (Bl d)Ordered By: Govind Snow on 12-18-2024 Eosinophils/100 WBC (Bld) 4.6 % [facility] Erythrocyte distribution wid th Auto (RBC) [Ratio]Ordered By: Govind Snow on 12-18-2024 Erythrocyte distribution width (RBC) [Ratio] 11.9 % 11.5-15.0 [facility] Ethanol SerPl-mCncon 025 Ethanol [Mass/Vol] 105 mg/dL High <11 [facility] Comment on above: Order Comment: Speci men Type: BLOOD SPECIMEN Ordering Facility: [facility] Address: [address] [place] [address] Result Comment: Valu es > 80 mg/dL may indicate intoxication Performed By: #### 5 643-2 #### [facility] CLIA [id number] [address] [place] [address] [place] Glomerular filtration rate [ Volume Rate/Area] in Serum, Plasma or Blood by CreatinineOrdered By: Govind Snow on 12-18-2024 Glomerular filtration rate [Volume Rate/Area] in Serum, Plasma or Blood by Creatinine 45 mL/min/1.73m??? Low >=60 [facility] Comment on above: Estimated Glomerular Filtration [...] sensitivity method [Mass/Vol] 14 ng/L High <12 [facility] Comment on above: Order Comment: Skyler trammell Type: BLOOD SPECIMEN Ordering Facility: [facility] Address: [address] [place] [address] Performed By: #### L [id number] #### [facility] CLIA [id number] [address] [place] [address] [place] HIGH SENSITIVITY TROPONIN T (SECOND)on 12-18-2024 Troponin T.cardiac High sensitivity method [Mass/Vol] 12 ng/L High <12 [facility] Comment on above: Order Comment: Skyler trammell Type: URINE SPECIMEN Ordering Facility: [facility] Address: [address] [place] [address] Performed By: #### 2 4356-8 #### [facility] CLIA [id number] [address] [place] [address] [place] #### 630-4 #### [facility] CLIA [id number] [address] [place] [address] [place] Hematocrit Auto (Bld) [Volum e fraction]Ordered By: Govind Snow on 12-18-2024 Hematocrit (Bld) [Volume fraction] 36.9 % 36.0-46.0 [facility] Hemoglobin [Mass/volume] in BloodOrdered By: Govind Snow on 12-18-2024 Hemoglobin (Bld) [Mass/Vol] 12.3 g/dL 11.5-15.5 [facility] INR in Platelet poor plasma by Coagulation assayOrdered By: Govind nSow on 12-18-2024 INR Coag (PPP) [Relative time] 1.1 {INR} 0.9-1.3 [facility] Comment on above: Vitamin K Antagonist (VKA) Therapeutic Range: INR 2 to 3 (Target INR of 2.5)Note: For patients treated with VKA drugs, such as warfarin, the [place] [employer] 2012 Guideline recommends [...] of 3).Indy GH, et al. Chest 2012, 141:7S-47SNishbrittany RA, et al. [facility] 2017, 70: 252-289 Laboratory - Chemistry and C hemistry - challengeOrdered By: Govind Snow on 12-18-2024 Albumin [Mass/Vol] 3.7 g/dL Low 3.9-4.9 [facility] ALP [Catalytic activity/Vol] 55 U/L 34-123 [facility] ALT [Catalytic activity/Vol] 9 U/L 7-38 [facility] AST [Catalytic activity/Vol] 16 U/L 13-35 [facility] Bilirubin [Mass/Vol] 0.2 mg/dL 0.2-1.3 [facility] Calcium [Mass/Vol] 9.4 mg/dL 8.5-10.2 [facility] Chloride [Moles/Vol] 99 mmol/L 98-107 [facility] CK [Catalytic activity/Vol] 37 U/L Low 42-196 [facility] CO2 [Moles/Vol] 24 mmol/L 22-30 [facility] Creatinine [Mass/Vol] 1.24 mg/dL High 0.58-0.96 [facility] Glucose [Mass/Vol] 153 mg/dL High 74-99 [facility] Comment on above: The [place] Di[employer] s Association (ADA) provides guidance for [...] Standards of Medical Care in Diabetes 2016, [place] [employer]. Diabetes Care. 2016.39(Suppl 1). Lipase [Catalytic activity/Vol] 24 U/L [facility] Magnesium [Mass/Vol] 2.0 mg/dL 1.7-2.3 [facility] Potassium [Moles/Vol] 3.1 mmol/L Low 3.7-5.1 [facility] Sodium [Moles/Vol] 138 mmol/L 136-144 [facility] Urea nitrogen [Mass/Vol] 22 mg/dL High 7-21 [facility] Laboratory - Hematology and Cell countsOrdered By: Govind Snow on 12-18-2024 Eosinophils (Bld) [#/Vol] 0.34 10*3/uL <0.46 [facility] Immature granulocytes/100 WBC (Bld) 0.1 % [facility] Leukocytes [#/volume] correc mary for nucleated erythrocytes in Blood by Automated counOrdered By: Govind Snow on 12-18-2024 WBC corrected for nucl RBC Auto (Bld) [#/Vol] 7.47 k/uL 3.70-11.00 [facility] Lipase SerPl-cCncon 12-19-19 25 Lipase [Catalytic activity/Vol] 24 U/L Normal [facility] Comment on above: Order Comment: Speci men Type: BLOOD SPECIMEN Ordering Facility: [facility] Address: [address] [place] [address] Performed By: #### 2 157-6, 06829-9, 3040-3, 40007-4 #### [facility] CLIA [id number] [address] [place] [address] [place] Lymphocytes Auto (Bld) [#/Vo l]Ordered By: Govind Snow on 12-18-2024 Lymphocytes (Bld) [#/Vol] 3.86 10*3/uL 1.00-4.00 [facility] Lymphocytes/100 WBC Auto (Bl d)Ordered By: Govind Snow on 12-18-2024 Lymphocytes/100 WBC (Bld) 51.7 % [facility] MCH Auto (RBC) [Entitic mass ]Ordered By: Govind Snow on 12-18-2024 MCH (RBC) [Entitic mass] 32.5 pg 26.0-34.0 [facility] MCHC Auto (RBC) [Mass/Vol]Or dered By: Govind Snow on 12-18-2024 MCHC (RBC) [Mass/Vol] 33.3 g/dL 30.5-36.0 [facility] MCV Auto (RBC) [Entitic vol] Ordered By: Govind Snow on 12-18-2024 MCV (RBC) [Entitic vol] 97.4 fL 80.0-100.0 [facility] Magnesium SerPl-ncon 12-18 Magnesium [Mass/Vol] 2.0 mg/dL Normal 1.7-2.3 [facility] Comment on above: Order Comment: Speci men Type: BLOOD SPECIMEN Ordering Facility: [facility] Address: [address] [place] [address] Performed By: #### 2 157-6, 23030-1, 3040-3, 63493-8 #### [facility] CLIA [id number] [address] [place] [address] [place] Monocytes Auto (Bld) [#/Vol] Ordered By: Govind Snow on 12-18-2024 Monocytes (Bld) [#/Vol] 0.70 10*3/uL <0.87 [facility] Monocytes/100 WBC Auto (Bld) Ordered By: Govind Snow on 12-18-2024 Monocytes/100 WBC (Bld) 9.4 % [facility] NT-proBNP SerPl-mCncon 12-18 Natriuretic peptide.B prohormone N-Terminal [Mass/Vol] 507 pg/mL High <450 [facility] Comment on above: Order Comment: Speci men Type: BLOOD SPECIMEN Ordering Facility: [facility] Address: [address] [id number] Performed By: #### 3 3762-6 #### [facility] CLIA [id number] [address] [place] [address] [place] Natriuretic peptide.B prohor christy N-Terminal [Mass/volume] in Serum or PlasmaOrdered By: Govind Snow on 12-18-2024 Natriuretic peptide.B prohormone N-Terminal [Mass/Vol] 507 pg/mL High <450 [facility] Neutrophils Auto (Bld) [#/Vo l]Ordered By: Govind Snow on 12-18-2024 Neutrophils (Bld) [#/Vol] 2.47 10*3/uL 1.45-7.50 [facility] Neutrophils/100 WBC Auto (Bl d)Ordered By: Govind Snow on 12-18-2024 Neutrophils/100 WBC (Bld) 33.0 % [facility] No Panel InformationOrdered By: Govind Snow on 12-18-2024 Troponin T Hi Sens Cardiac Interven 12 ng/L High <12 [facility] Ethyl Alcohol Level 105 mg/dL High <11 [facility] Comment on above: Values > 80 mg/dL ma y indicate intoxication Immature Granulocyte # (Auto) <0.03 k/uL <0.10 [facility] Nucleated RBC Auto (Bld) [#/ Vol]Ordered By: Govind Snow on 12-18-2024 Nucleated RBC (Bld) [#/Vol] 10*3/uL <0.01 [facility] Nucleated erythrocytes [Pres ence] in Blood by Automated countOrdered By: Govind Snow on 12-18-2024 Nucleated RBC Auto Ql (Bld) 0.0 /100{WBC} [facility] PT panel Coag (PPP)on 2024 INR Coag (PPP) [Relative time] 1.1 {INR} Normal 0.9-1.3 [facility] Comment on above: Order Comment: Speci men Type: BLOOD SPECIMENOrdering Facility: [facility] Address: [address] [place] [address] Result Comment: Leta min K Antagonist (VKA) Therapeutic Range: INR 2 to 3 (Target INR of 2.5) Note: For patients treated with VKA drugs, such as warfarin, the [employer] 2012 Guideline recommends [...] Chest 2012, 141:7S-47S Jw RA, et al. [facility] 2017, 70: 252-289 Performed By: #### 2 4356-8 #### [facility] CLIA [id number] [address] [place] [address] [place] #### 630-4 #### [facility] CLIA [id number] [address] [place] [address] [place] PT Coag (PPP) [Time] 11.7 s Normal 9.7-13.0 [facility] Comment on above: Order Comment: Speci men Type: BLOOD SPECIMENOrdering Facility: [facility] Address: [address] [place] [address] Performed By: #### 2 4356-8 #### [facility] CLIA [id number] [address] [place] [address] [place] #### 630-4 #### [facility] CLIA [id number] [address] [place] [address] [place] Platelet mean volume Auto (B ld) [Entitic vol]Ordered By: Govind Snow on 12-18-2024 Platelet mean volume (Bld) [Entitic vol] 8.7 fL Low 9.0-12.7 [facility] Platelets Auto (Bld) [#/Vol] Ordered By: Govind Snow on 12-18-2024 Platelets (Bld) [#/Vol] 209 10*3/uL 150-400 [facility] Protein [Mass/volume] in Ser um or PlasmaOrdered By: Govind Snow on 12-18-2024 Protein [Mass/Vol] 6.4 g/dL 6.3-8.0 [facility] Prothrombin time (PT)Ordered By: Govind Snow on 12-18-2024 PT Coag (PPP) [Time] 11.7 s 9.7-13.0 [facility] RBC Auto (Bld) [#/Vol]Ordere d By: Govind Snow on 12-18-2024 RBC (Bld) [#/Vol] 3.79 10*6/uL Low 3.90-5.20 [facility] Serum or plasma anion gap de terminationOrdered By: Govind Snow on 12-18-2024 Anion gap [Moles/Vol] 15 mmol/L 12-16 [facility] XR CHEST 1V FRONTAL PORTon 0 12-18-2024 [...] described above with no definite acute disease. Testing Analyst: SHIVANI Transcribe Date/Time: Dec 18 2024 8:55P Dictated by : KATRIN PHILIP MD This examination was interpreted and the report reviewed and electronically signed by: KATRIN PHILIP MD on Dec 18 2024 8:56PM EST [id number] Normal [facility] - Chemistry and C hemistry - challengeOrdered By: Elliot Starks on 11-29-2024 Bilirubin Ql (U) Negative [facility] Glucose (U) [Mass/Vol] Negative [facility] Ketones Ql (U) Negative [facility] pH (U) 5 [pH] [facility] Specific gravity (U) [Rel density] 1.015 [facility] Urobilinogen (U) [Mass/Vol] 0.2 mg/dL [facility] - Specimen inform ationOrdered By: Elliot Starks on 11-29-2024 Appearance (U) clear [facility] Color (U) yellow [facility] - UrinalysisOrder ed By: Elliot Starks on 11-29-2024 Leukocyte esterase Test strip Ql (U) Negative [facility] Nitrite Ql (U) Positive [facility] Protein Ql (U) Negative [facility] No Panel InformationOrdered By: Elliot Starks on 11-29-2024 Urine Occult Blood ++ [facility] CBC (NO DIFF)on 11-09-2024 Erythrocyte distribution width (RBC) [Ratio] 12.8 % Normal 11.5-15 [facility] Comment on above: Performed By: #### C BC #### [facility] ([facility]) [address] [place] [address] VIR Hematocrit (Bld) [Volume fraction] 40.0 % Normal 35-47 [facility] Comment on above: Performed By: #### C BC #### [facility] ([facility]) [address] [place] [address] VIR Hemoglobin (Bld) [Mass/Vol] 13.6 g/dL Normal 11.7-15.5 [facility] Comment on above: Performed By: #### C BC #### [facility] ([facility]) [address] [place] [address] VIR MCH (RBC) [Entitic mass] 32.7 pg Normal 27-34 [facility] Comment on above: Performed By: #### C BC #### [facility] ([facility]) [address] [place] [address] VIR MCHC (RBC) [Mass/Vol] 34.1 g/dL Normal 32-36 [facility] Comment on above: Performed By: #### C BC #### [facility] ([facility]) [address] [place] [address] VIR MCV (RBC) [Entitic vol] 96 fL Normal 80-100 [facility] Comment on above: Performed By: #### C BC #### [facility] ([facility]) [address] [place] [address] VIR Platelet mean volume (Bld) [Entitic vol] 7.0 fL Normal 7-12 [facility] Comment on above: Performed By: #### C BC #### [facility] ([facility]) [address] [place] [address] VIR Platelets (Bld) [#/Vol] 206 10*3/uL Normal 150-450 [facility] Comment on above: Performed By: #### C BC #### [facility] ([facility]) [address] [place] [address] VIR RBC COUNT 4.16 X10E12/L Normal 3.8-5.2 [facility] Comment on above: Performed By: #### C BC #### [facility] ([facility]) [address] [place] [address] VIR WBC (Bld) [#/Vol] 5.1 10*3/uL Normal 4-11 [facility] Comment on above: Performed By: #### C BC #### [facility] ([facility]) [address] [place] [address] VIR COMPREHENSIVE METABOLIC PANE Roland 11-08-2024 Albumin [Mass/Vol] 4.2 g/dL Normal 3.2-5.3 [facility] Comment on above: Performed By: #### C MP #### [facility] ([facility]) [address] [place] [address] VIR ALP [Catalytic activity/Vol] 48 U/L Normal 39-130 [facility] Comment on above: Performed By: #### C MP #### [facility] ([facility]) [address] [place] [address] VIR ALT [Catalytic activity/Vol] 10 U/L Normal <=31 [facility] Comment on above: Performed By: #### C MP #### [facility] ([facility]) [address] [place] [address] VIR Anion gap [Moles/Vol] 8 mmol/L Normal 5-15 [facility] Comment on above: Performed By: #### C MP #### [facility] ([facility]) [address] [place] [address] VIR AST [Catalytic activity/Vol] 17 U/L Normal <=41 [facility] Comment on above: Performed By: #### C MP #### [facility] ([facility]) [address] [place] [address] VIR Bilirubin [Mass/Vol] 0.5 mg/dL Normal 0.3-1.2 [facility] Comment on above: Performed By: #### C MP #### [facility] ([facility]) [address] [place] [address] VIR Calcium [Mass/Vol] 10.0 mg/dL Normal 8.5-10.5 [facility] Comment on above: Performed By: #### C MP #### [facility] ([facility]) [address] [place] [address] VIR Chloride [Moles/Vol] 101 mmol/L Normal 98-109 [facility] Comment on above: Performed By: #### C MP #### [facility] ([facility]) [address] [place] [address] VIR CO2 [Moles/Vol] 32 mmol/L Normal 22-32 [facility] Comment on above: Performed By: #### C MP #### [facility] ([facility]) [address] [place] [address] VIR Creatinine [Mass/Vol] 1.06 mg/dL High 0.40-1.00 [facility] Comment on above: Result Comment: METH OD TRACEABLE TO IDMS STANDARD Performed By: #### C MP #### [facility] ([facility]) [address] [place] [address] VIR GFR/1.73 sq M.predicted among non-blacks MDRD (S/P/Bld) [Vol rate/Area] 54 mL/min/{1.73_m2} Low >=60 [facility] Comment on above: Result Comment: Repo rted eGFR is based on the CKD-EPI 2020 equation that does not use a race coefficient. Performed By: #### C MP #### [facility] ([facility]) [address] [place] [address] VIR Glucose [Mass/Vol] 109 mg/dL High 65-99 [facility] Comment on above: Performed By: #### C MP #### [facility] ([facility]) [address] [place] [address] VIR Potassium [Moles/Vol] 3.9 mmol/L Normal 3.5-5.0 [facility] Comment on above: Performed By: #### C MP #### [facility] ([facility]) [address] [place] [address] VIR Protein [Mass/Vol] 7.2 g/dL Normal 6.0-8.0 [facility] Comment on above: Performed By: #### C MP #### [facility] ([facility]) [address] [place] [address] VIR Sodium [Moles/Vol] 141 mmol/L Normal 134-146 [facility] Comment on above: Performed By: #### C MP #### [facility] ([facility]) [address] [place] [address] VIR Urea nitrogen [Mass/Vol] 27 mg/dL Normal 5-27 [facility] Comment on above: Performed By: #### C MP #### [facility] ([facility]) [address] [place] [address] VIR MAGNESIUMon 11-08-2024 Magnesium [Mass/Vol] 1.9 mg/dL Normal 1.8-2.6 [facility] Comment on above: Performed By: #### M G #### [facility] ([facility]) [address] [place] [address] VIR POCT EKGOrdered By: Cora case on 11-08-2024 [facility] Ambulatory Visit Summaryon 0 10-26-2024 Ambulatory [...] 40 mg Cap-DR) potassium chloride (Potassium Chloride (Qfx-Ezgj-Kbl 10) 10 mEq oral tablet, extended release) [...] E Osman PA-C Where: [facility] [address] [id number]- Medications What How Much When Why Instructions [...] 1 Capsules Unchanged potassium chloride (Potassium Chloride (Qqd-Dwqg-Fjg 10) 10 mEq oral tablet, extended release) [...] signed up for this yet, please contact [employer] at [phone] to get signed up today. Language Information Language assistance services are available as needed. Normal [facility] Urology Office/Clinic Noteon 10-26-2024 Urology Office/Clinic [...] off and repeat Botox is desired Ordered: 27325 Measure Post Void residual urine and/or bladder capacity by US- non-imaging Urnls Dip Stick Auto w/o Microscopy POC 53898 2. Frequent UTI (N39.0: Urinary tract infection, [...] -Cont symptom monitoring -High fluid intake, add lemon/crow -Moderate animal protein, increase fruits and vegetables 4. 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 She has had a hematuria workup including a scope in the past at [facility]. Denies gross hematuria. CTU 07/18/24 - neg for filling defects, 3 mm right ureteral stone noted. Follow up CT scan confirmed passage. S/p cysto 09/19/24 - negative for b.t., lesions, stones or foreign bodies. Cystitis cystica. Moderate vaginal atrophy. UA today w/ moderate bloo (more content not included)... Normal [facility] Comment on above: Result Comment: Elec tronically Signed By: Jacqui MOTT, Maria E\.br\Date and Time Signed: 10/26/24 09:05 EDT Inpatient Patient Summaryon 09-19-2024 Inpatient Patient Summary Inpatient Patient Summary [place] [id number] Clinical Summary Person Information Name: BETTIE BURNS Age: 79 Years : 1945 Sex: Female PCP: ELLIOT STARKS MD Marital Status: Race: White Ethnicity: Non- or Language: Russian Visit Id: Visit Reason: MIXED INCONTINENCE Speciality: Acuity: Enc Type: Outpatient Med Service: Surgery Arrival: 09/19/2024 07:39:26 Discharge: Dispo Type: Address: [address] [place] [id number] Provider Notes: Diagnosis: Mixed incontinence; Recurrent UTI; [...] Cap-DR) 1 Capsules. potassium chloride (Potassium Chloride (Gyg-Ybnz-Zhk 10) 10 mEq oral tablet, extended release) [...] Cystoscopy with Botox Injection Discharge Instructions (CUSTOM) [facility] Main OR Intraoperative Recor don 09-19-2024 Main OR Intraoperative Record Main OR Intraoperative Record IntraOp Document Type [facility] Summary Primary Physician: Alfreda Miller MD Finalized Date/Time: 09/19/24 08:27:50 Pt. Name: BETTIE BURNS Diana Browning/Sex: 1945 Female Med Rec #: [id number] Physician: Alfreda Miller MD Financial #: [id number] Pt. Type: O Room/Bed: / Admit/Disch: 09/19/24 07:39:26 - Institution: Case Times FTURO Entry 1 Patient Times In Room 09/19/24 08:12:00 Out Room 09/19/24 08:24:00 Procedure Times Start 09/19/24 08:17:00 Stop 09/19/24 08:20:00 Anesthesia Times Last Modified By: Roxy King 09/19/24 08:27:24 General Comments: BOTOX 100 UNITS: EXP: AND LOT: [id number].Emelina MOREIRA Case Attendance FTURO Entry 1 Entry 2 Entry 3 Case Attendee Alfreda Miller MD, Kelsie E Miller, Laura C Role Performed Surgeon - Primary Tree Inspector - Primary Scrub - Primary Time In [...] Signed By: Roxy King 09/19/24 08:27 Normal [facility] Main OR Preoperative Recordo n 09-19-2024 Main OR Preoperative Record Main OR Preoperative Record Holding Area Document Type [facility] Summary Primary Physician: Alfreda Miller MD Finalized Date/Time: 09/19/24 08:17:11 Pt. Name: BETTIE BURNS /Sex: 1945 Female Med Rec #: [id number] Physician: Alfreda Miller MD Financial #: [id number] Pt. Type: O Room/Bed: / Admit/Disch: 09/19/24 [...] Complaints of Pain: No Skin Integrity Intact, [place], Warm, & Dry Vitals - EU Blood [...] Unfinalizing Freetext Reason for Unfinalizing 09/19/24 08:16 [id number] Adding Additional Data Normal [facility] Operative Reporton Operative Report Operative Report Patient: BETTIE BURNS Age: 79 years Sex: Female : 1945 Associated Diagnoses: None Author: Paul VILLEGAS, Alfreda Palacios Procedure Operative Information Details: Date/ Time: 09/19/2024 [...] regarding vaginal atrophy and recurrent UTIs. Normal [facility] Comment on above: Result Comment: Elec tronically Signed By: Alfreda Miller MD\.br\Date and Time Signed: 09/19/24 08:25 EDT Outpatient Surgery Discharge Instructionon 09-19-2024 Outpatient Surgery Discharge Instruction Outpatient Surgery Discharge Instruction [place] [id number] Patient Discharge Instructions PERSON INFORMATION Name: BETTIE [...] G, have received the attached patient education materials/instruction [...] to serve you. Thank you for choosing [facility] Normal [facility] C Urineon 09-14-2024 Bacteria identified Cx Nom (U) Microbiology PROCEDURE: Urine Culture [R1] SOURCE: U CleanCatch BODY SITE: COLLECTED DATE/TIME: 09/12/2024 09:25 EDT RECEIVED DATE/TIME: 09/12/2024 17:27 EDT START DATE/TIME: 09/12/2024 17:27 EDT FREE TEXT SOURCE: ESTUARDO VILLEGAS, Jean Peirre MARTE MD, Jean Pierre Tarango FINAL REPORTS [...] Locations R1: This test was performed at: [facility], [address] [place] [address], [address] [place] [address], [facility] Comment on above: Performed By: #### 2 [id number] #### [facility] [address] [place] [address] Performed By: #### 2 [id number] ####[facility] [address] [place] [address] C Urineon 06-24-2024 Bacteria identified Cx Nom [...] Locations R1: This test was performed at: [facility], [address] [place] [address], [address] [place] [address], Normal [facility] Comment on above: Performed By: #### 2 [id number] #### [facility] [address] [place] [address] Ambulatory Visit Summaryon 0 06-22-2024 Ambulatory Visit [...] 40 mg Cap-DR) potassium chloride (Potassium Chloride (Hsx-Kdal-Bcd 10) 10 mEq oral tablet, extended release) [...] Follow-Up Appointments Thursday 10:30 AM EDT Where: [facility] Thursday 8:15 AM EDT Where: [facility] Medications What [...] 1 Capsules Unchanged potassium chloride (Potassium Chloride (Ztv-Ezve-Ufc 10) 10 mEq oral tablet, extended release) [...] for choosing us for your care. Normal [facility] URINALYSISOrdered By: Tien Lyon on 06-22-2024 Bacteria Auto Ql (U) 1+ /HPF Invalid Interpretation Code Trace/HPF [facility] UA Auto SS Bilirubin Ql (U) Negative Normal Negativemg/ dL [facility] UA Auto SS Clarity (U) Clear (06/22/24 1:48 PM) Normal Clear [facility] UA Auto SS Color (U) Light-Yellow 1 (06/22/24 1:48 PM) Normal Yellow [facility] UA Auto SS Comment on above: Interpretive Data: M icroscopic readings are only performed on those samples that meet specific criteria set forth by [facility]. Epithelial cells.squamous Auto (Urine sed) [#/Area] 0-2 graded/HPF Invalid Interpretation Code [facility] UA Auto SS Glucose Ql (U) Negative Normal Negativemg/ dL [facility] UA Auto SS Hemoglobin Auto test strip [...] Desc Random Urine (06/22/24 1:48 PM) Normal [facility] UA Auto SS Urinalysis with Microon 06-04 Bacteria Auto Ql (U) 1+ /HPF Abnormal Trace [facility] Comment on above: Performed By: #### 4 [id number] #### [facility] [address] [place] [address] Bilirubin Ql (U) Negative Normal Negative [facility] Comment on above: Performed By: #### 4 [id number] #### [facility] [address] [place] [address] Clarity (U) Clear Normal Clear [facility] Comment on above: Performed By: #### 4 [id number] #### [facility] [address] [place] [address] Color (U) Light-Yellow Normal Yellow [facility] Comment on above: Result Comment: Micr oscopic readings are only performed on those samples that meet specific criteria set forth by [facility]. Performed By: #### 4 [id number] #### [facility] [address] [place] [address] Epithelial cells.squamous Auto (Urine sed) [#/Area] 0-2 Invalid Interpretation Code [facility] Comment on above: Performed By: #### 4 [id number] #### [facility] [address] [place] [address] Glucose Ql (U) Negative Normal Negative [facility] Comment on above: Performed By: #### 4 [id number] #### [facility] [address] [place] [address] Hemoglobin Auto test strip (U) [Mass/Vol] 2+ Abnormal Negative [facility] Comment on above: Performed By: #### 4 [id number] #### [facility] [address] [place] [address] Ketones Auto test strip Ql (U) Negative Normal Negative [facility] Comment on above: Performed By: #### 4 [id number] #### [facility] [address] [place] [address] Leukocyte esterase Auto test strip Ql (U) 250 Felipe/uL Abnormal Negative [facility] Comment on above: Performed By: #### 4 [id number] #### [facility] [address] [place] [address] Mucus Auto Ql (U) Negative Normal Negative [facility] Comment on above: Performed By: #### 4 [id number] #### [facility] [address] [place] [address] Nitrite Auto test strip Ql (U) Negative Normal Negative [facility] Comment on above: Performed By: #### 4 [id number] #### [facility] [address] [place] [address] pH (U) 6.0 [pH] Invalid Interpretation Code 5.0-9.0 [facility] Comment on above: Performed By: #### 4 [id number] #### [facility] [address] [place] [address] Protein Ql (U) Negative Normal Negative [facility] Comment on above: Performed By: #### 4 [id number] #### [facility] [address] [place] [address] RBC Ql (U) 4-20 Abnormal 0-3 [facility] Comment on above: Performed By: #### 4 [id number] #### [facility] [address] [place] [address] Specific gravity (U) [Rel density] 1.013 Invalid Interpretation Code 1.005-1.030 [facility] Comment on above: Performed By: #### 4 [id number] #### [facility] [address] [place] [id number] Urobilinogen (U) [Mass/Vol] Negative Normal Negative [facility] Comment on above: Performed By: #### 4 [id number] #### [facility] [address] [place] [address]81 WBC Auto (Urine sed) [#/Area] 31-75 Abnormal 0-5 [facility] Comment on above: Performed By: #### 4 [id number] #### [facility] [address] [place] [phone] Type of Urine collection method Random Urine Normal [facility] Comment on above: Performed By: #### 4 [id number] #### [facility] [address] [place] [id number] Urology Office/Clinic Noteon 06-22-2024 Urology Office/Clinic Note [...] pending completion of cystoscopy w/ KML Ordered: 69650 Measure Post Void residual urine and/or bladder [...] Urnls Dip Stick Auto w/o Microscopy POC 71175 2. Frequent UTI (N39.0: Urinary tract infection, [...] UTIs for (more content not included)... Normal [facility] Comment on above: Result Comment: Elec tronically Signed By: Jacqui MOTT, Maria E\.br\Date and Time Signed: 06/22/24 15:08 EST CNPNon 09-17-2023 CNPN Telephone (HEMASA) BETTIE BURNS ([id number]) 1945 F Date Time Provider Department 09/17/23 MATT ADAMS HEMASA During your visit today, we recorded the following information about you: Matt Adams RN 09/17/2023 10:20 AM Signed Pt called to request yearly Mammogram order I have pended order as previously completed Pt requests to fax to Nori Lema [phone] BRM/HM: please review and sign if agreeable [...] of breast [Z12.31] Order(s):SHANE SCREENING W YAW [[id number]] Order #: [id number] FUTURE Prescriptions as of 09/17/2023 - lisinopril [...] Status:Closed by ANDREW CHOI on 09/17/23 Normal [facility] BASIC METABOLIC PANELon 03-0 Anion gap [Moles/Vol] 1 mmol/L MMOL/L [employer] Calcium [Mass/Vol] 8.7 mg/dL [employer] Chloride [Moles/Vol] 103 mmol/L [employer] Comment on above: Please note: Triglyc eride levels of 600mg/dL or higher may positively bias chloride results by approximately 2.1 mmol CO2 [Moles/Vol] 30 mmol/L [facility] Creatinine [Mass/Vol] 1.10 mg/dL [facility] GFR COMMENT Average GFR for 70+ years old = 75. [facility] Comment on above: Chronic Kidney disea se, GFR = <60. Kidney failure, GFR = <15. The GFR estimate is not adjusted for extreme body surface area or acute process, nor has it been validated for women or ethnic groups other than and . GFR/1.73 sq M.predicted among blacks MDRD (S/P/Bld) [Vol rate/Area] 62 mL/min/{1.73_m2} ml/min/1.73 sq.m [facility] GFR/1.73 sq M.predicted among non-blacks MDRD (S/P/Bld) [Vol rate/Area] 51 mL/min/{1.73_m2} ml/min/1.73 sq.m [facility] Glucose post fast [Mass/Vol] 141 mg/dL High [facility] Comment on above: NORMAL <100 mg/dL PREDIABETES 101-126 mg/dL DIABETES 126 mg/dL or higher Interpretation and review of laboratory results Abnormal [facility] Potassium [Moles/Vol] 3.8 mmol/L [facility] Sodium [Moles/Vol] 134 mmol/L Low [facility] Urea nitrogen [Mass/Vol] 30 mg/dL High [facility] CBC, EDIF, PLATELETon 2023 ABSOLUTE BASOPHIL COUNT 0.0 10*3/uL 0.0 - 0.2 10*3/uL [facility] Basophils/100 WBC (Bld) 0.3 % 0.0 - 2.0 % [facility] Differential cell count method Nom (Bld) AUTO DIFF % [facility] Eosinophils (Bld) [#/Vol] 0.0 10*3/uL 0.0 - 0.7 10*3/uL [facility] Eosinophils/100 WBC (Bld) 0.0 % 0.0 - 11.0 % [facility] Erythrocyte distribution width (RBC) [Ratio] 13.2 % 11.5 - 14.5 % [facility] Hematocrit (Bld) [Volume fraction] 33.6 % Low 36.0 - 48.0 % [facility] Hemoglobin (Bld) [Mass/Vol] 12.0 g/dL [facility] Interpretation and review of laboratory results Abnormal [facility] Lymphocytes (Bld) [#/Vol] 1.1 10*3/uL Low 1.2 - 3.4 10*3/uL [facility] Lymphocytes/100 WBC (Bld) 16.4 % Low 20.0 - 55.0 % [facility] MCH (RBC) [Entitic mass] 33.6 pg 26.0 - 35.0 PG [facility] MCHC (RBC) [Mass/Vol] 35.6 g/dL [facility] MCV (RBC) [Entitic vol] 94.2 fL A [facility] Monocytes (Bld) [#/Vol] 0.3 10*3/uL 0.0 - 0.7 10*3/uL [facility] Monocytes/100 WBC (Bld) 4.3 % 0.0 - 10.0 % [facility] Neutrophils (Bld) [#/Vol] 5.2 10*3/uL 1.4 - 6.5 10*3/uL [facility] Neutrophils/100 WBC (Bld) 79.0 % High 37.0 - 75.0 % [facility] Platelet mean volume (Bld) [Entitic vol] 7.0 fL Low [facility] Platelets (Bld) [#/Vol] 226 10*3/uL 130 - 400 10*3/uL [facility] RBC (Bld) [#/Vol] 3.57 10*6/uL Low 4.0 - 5.4 10*6/uL [facility] WBC (Bld) [#/Vol] 6.6 10*3/uL 3.6 - 11.0 10*3/uL [facility] BODY FLUID CELL COUNTon Appearance (Body fld) HAZY [facility] Color (Body fld) LIGHT YELLOW [facility] RBC Auto (Body fld) [#/Vol] 3376 /CMM [facility] Specimen source Nom (Body fld) SYNOVIAL FLUID [facility] WBC (Body fld) [#/Vol] 57 10*3/uL /CMM [facility] DIFFERENTIAL, FLUIDon 2023 BASOPHILS, FLUID 2 % [facility] Comment on above: NO REFERENCE RANGE E STABLISHED Eosinophils/100 WBC (Body fld) 4 % [employer] Comment on above: NO REFERENCE RANGE E STABLISHED Lymphocytes/100 WBC (Body fld) 22 % [employer] Comment on above: NO REFERENCE RANGE E STABLISHED MESOTHELIAL CELLS, FLUID 8 % [employer] Comment on above: NO REFERENCE RANGE E STABLISHED Monocytes+Macrophages/1 00 WBC Manual cnt (Body fld) 48 % [employer] Comment on above: NO REFERENCE RANGE E STABLISHED Neutrophils/100 WBC (Body fld) 16 % [employer] Comment on above: NO REFERENCE RANGE E STABLISHED [facility] REPEAT ABO/RH (D) TYPINGon 0 07-07-2023 ABO and Rh group Nom (Bld ) Positive ComActivity SCREEN: MRSA ONLY, NARES (IS OLATION SCREEN)on 07-07-2023 MRSA isol Org specific cx Ql (Nose) Negative NEGATIVE [facility] STAPHYOCOCCUS AUREUS BY PCR Negative NEGATIVE [facility] Comment on above: TESTING PERFORMED BY PCR [employer] XR Pelvis 2 Viewson 07-07-19 FINDINGS/IMPRESSION: 1. [...] or other acute bony abnormality is seen. [facility] Radiology Study observation (narrative) Libboo XR Pelvis 2 ViewsOrdered By: Parveen Mason on 07-07-2023 [employer] Work Phone: POCT EKGOrdered By: Samantha Gurrola on 06-02-2023 [facility] COBALT AND CHROMIUM,WBon Chromium (Bld) [Mass/Vol] 1.1 [facility] Comment on above: Reference range: <3. 0 Unit: ng/mL PERFORMED BY [employer] [place] (Bld) [Mass/Vol] <1.0 [facility] Comment on above: Reference range: <3. 0 Unit: ng/mL (NOTE) Chromium and cobalt analysis performed by inductively coupled plasma/mass spectrometry (ICP/MS). Reference range is for patients with bbhif-hi-pttvc (MoM) orthopedic implants. The [place] [employer] Knee [employer], the [place] [employer], and The Hip Society, have published a consensus statement, Risk Stratification Algorithm for Management of Patients with Suxuw-zm-Jtghy Hip Arthroplasty. The algorithm is intended as an aid to orthopedic surgeons in the assessment and management of patients with Fezmq-gf-Xrhsr bearings. The systematic risk stratification includes recommendations [...] developed and its performance characteristics determined by [employer]. It has not been cleared or approved by the Food and Drug Administration. [facility] C REACTIVE PROTEINon 024 CRP [Mass/Vol] 48.4 mg/L High 0 - 10 MG/L [facility] Interpretation and review of laboratory results Abnormal [facility] SEDIMENTATION RATE, AUTOMATE Don 05-14-2023 ESR (Bld) [Velocity] 31 mm/h High [facility] [employer] [facility] Interpretation and review of laboratory results Abnormal [facility] Urinalysis - DIPSTICKon - Appearance (U) cloudy [employer] Other Bilirubin Ql (U) small [employer] Other Color (U) yellow [employer] Other Glucose Ql (U) Negative [employer] Other Hemoglobin Ql (U) small dotHIV [employer] Other Ketones Ql (U) Negative [employer] Other Leukocyte esterase Test strip Ql (U) moderate [employer] Other Nitrite Ql (U) Positive [employer] Other pH (U) 5 [pH] [employer] Other Protein Ql (U) Negative [employer] Other Specific gravity (U) [Rel density] 1.010 [employer] Other Urobilinogen (U) [Mass/Vol] off chart [employer] Other Urinalysis - DIPSTICK [employer] Other Urinalysis - DIPSTICKon - Appearance (U) cloudy [employer] Other Bilirubin Ql (U) Negative [employer] Other Color (U) pale yellow [employer] Other Glucose Ql (U) Negative [employer] Other Hemoglobin Ql (U) non hem-trace [employer] Other Ketones Ql (U) trace [employer] Other Leukocyte esterase Test strip Ql (U) moderate [employer] Other Nitrite Ql (U) Negative [employer] Other pH (U) 5 [pH] [facility] [employer] Other Protein Ql (U) trace [employer] Other Specific gravity (U) [Rel density] 1.005 [facility] [employer] Other Urobilinogen (U) [Mass/Vol] normal [facility] [employer] Other Urinalysis - DIPSTICK [employer] Other CULTURE URINEon 06-11-2022 CULTURE URINE Isolate [...] F Trimethoprim/Sulfamet hoxazole <=20 S F Normal [facility] Comment on above: Performed By: #### U RCX #### [facility] [address] [place] [address] Dr. Florencio Narayanan CARDIAC AMBER ADMITon 023 CK [Catalytic activity/Vol] 44 U/L Normal 26-192 [facility] Comment on above: Performed By: #### C LILIAN LOZANO, CMADM #### [facility] [address] [address] [address] Florencio Narayanan CK.MB [Mass/Vol] ng/mL Normal <=3.60 [facility] Comment on above: Performed By: #### C LILIAN LOZANO CMADM #### [facility] [address] [place] [address] Dr. Florencio Narayanan HSTROP 14.6 pg/mL Normal 4.0-51.3 [facility] Comment on above: Result Comment: CUT- OFF POINTS HAVE BEEN ESTABLISHED BASED ON THE FOURTH UNIVERSAL DEFINITIONS OF MYOCARDIAL INFARCTION. THE UPPER REFERENCE LIMIT (URL) OF TROPONIN, DEFINED THE 99TH PERCENTILE OF cTnI DISTRIBUTION IN A REFERENCE POPULATION, HAS BEEN CONFIRMED THE DECISION THRESHOLD FOR [place] DIAGNOSIS. Performed By: #### C LILIAN LOZANO, MARY #### [facility] [address] [place] [address] Dr. Florencio Narayanan UMER 109 ng/mL Critically high 9-82 [facility] Comment on above: Performed By: #### C LILIAN LOZANO CMADM #### [facility] [address] [place] [address] Dr. Florencio Narayanan CBC AUTO DIFFon 06-09-2022 BASO # 0.1 103/ul Normal 0.0-0.1 [facility] Comment on above: Performed By: #### C BC #### [facility] [address] [place] [address] Dr. Florencio Narayanan Basophils/100 WBC (Bld) 0.4 % Normal 0.2-2.0 [facility] Comment on above: Performed By: #### C BC #### [facility] [address] [place] [address] Dr. Florencio Narayanan EO # 0.0 103/ul Normal 0.0-0.7 [facility] Comment on above: Performed By: #### C BC #### [facility] [address] [place] [address] Dr. Florencio Narayanan Eosinophils/100 WBC (Bld) 0.2 % Critically low 0.9-7.0 [facility] Comment on above: Performed By: #### C BC #### [facility] [address] [place] [address] Dr. Florencio Narayanan Erythrocyte distribution width (RBC) [Ratio] 12.3 % Normal 11.0-15.0 [facility] Comment on above: Performed By: #### C BC #### [facility] [address] [place] [address] Dr. Florencio Narayanan Hematocrit (Bld) [Volume fraction] 38.4 % Normal 36.0-48.0 [facility] Comment on above: Performed By: #### C BC #### [facility] [address] [place] [address] Dr. Florencio Narayanan Hemoglobin (Bld) [Mass/Vol] 12.7 g/dL Normal 12.0-16.0 [facility] Comment on above: Performed By: #### C BC #### [facility] [address] [place] [address] Dr. Florencio Narayanan IG # 0.06 10e3/ul Critically high 0.00-0.03 [facility] Comment on above: Performed By: #### C BC #### [facility] [address] [place] [address] Dr. Florencio Narayanan IG % 0.5 % Normal 0.0-0.5 [facility] Comment on above: Performed By: #### C BC #### [facility] [address] [place] [address] Dr. Florencio Narayanan LYMPH # 1.0 103/ul Critically low 1.2-3.8 [facility] Comment on above: Performed By: #### C BC #### [facility] [address] [place] [address] Dr. Florencio Narayanan Lymphocytes/100 WBC (Bld) 8.4 % Critically low 20.5-60.0 [facility] Comment on above: Performed By: #### C BC #### [facility] [address] [place] [address] Dr. Florencio Narayanan MANUAL DIFF REQ NO Normal [facility] Comment on above: Performed By: #### C BC #### [facility] [address] [place] [address] Dr. Florencio Narayanan MCH (RBC) [Entitic mass] 32.4 pg Normal 26.7-34.0 [facility] Comment on above: Performed By: #### C BC #### [facility] [address] [place] [address] Dr. Florencio Narayanan MCHC (RBC) [Mass/Vol] 33.1 g/dL Normal 29.9-35.2 [facility] Comment on above: Performed By: #### C BC #### [facility] [address] [address] [address] Florencio Narayanan MCV (RBC) [Entitic vol] 98.0 fL Normal 81.0-99.0 [facility] Comment on above: Performed By: #### C BC #### [facility] [address] [address] [address] Florencio Narayanan MONO # 1.6 103/ul Critically high 0.3-0.8 [facility] Comment on above: Performed By: #### C BC #### [facility] [address] [address] [address] Florencio Narayanan Monocytes/100 WBC (Bld) 13.1 % Critically high 1.7-12. 0 [facility] Comment on above: Performed By: #### C BC #### [facility] [address] [place] [address] Dr. Florencio Narayanan NEUT # 9.5 103/ul Critically high 1.4-6.5 [facility] Comment on above: Performed By: #### C BC #### [facility] [address] [place] [address] Dr. Florencio Narayanan Neutrophils/100 WBC (Bld) 77.4 % Critically high 43.0-75.0 [facility] Comment on above: Performed By: #### C BC #### [facility] [address] [place] [address] Dr. Florencio Narayanan Platelet mean volume (Bld) [Entitic vol] 9.4 fL Critically low 9.5-13.5 [facility] Comment on above: Performed By: #### C BC #### [facility] [address] [place] [address] Dr. Florencio Narayanan PLT 140 103/ul Critically low 150-450 [facility] Comment on above: Performed By: #### C BC #### [facility] [address] [place] [address] Dr. Florencio Narayanan RBC 3.92 106/ul Critically low 4.20-5.40 [facility] Comment on above: Performed By: #### C BC #### [facility] [address] [place], [place] [address] Dr. Florencio Narayanan WBC 12.2 103/ul Critically high 4.0-11.0 [facility] Comment on above: Performed By: #### C #### [facility] [address] [place], [place] [address] STROKE HEAD WOon [...] LUANA VILLAFANA Date: 2022-06-09 12:24 Normal [facility] Covid-19 PCR (CVDTB)on SARS-CoV-2 (COVID-19) RNA CHRISTOPHER+probe Ql (Unsp spec) Not detected Normal NOT DETECTED [facility] Comment on above: Result Comment: When [...] for this test is supported by the [place] of Health and Human Service's declaration that [...] longer be used). Performed By: #### C TB #### [facility] [address] [place] [address] Dr. Florencio Narayanan ER URINE PROFILEon 3 Bilirubin Ql (U) Negative Normal NEGATIVE [facility] Comment on above: Performed By: #### Malini PIZANO UMICRO #### [facility] [address] [place] [address] Dr. Florencio Narayanan Clarity (U) CLEAR Normal CLEAR [facility] Comment on above: Performed By: #### Malini PIZANO UMICRO #### [facility] [address] [place] [address] Dr. Florencio Narayanan Color (U) LT. YELLOW Normal YELLOW [facility] Comment on above: Performed By: #### Malini PIZANO UMICRO #### [facility] [address] [place] [address] Dr. Florencio CNOLEY A micrscopic examination will be performed if indicated. Normal [facility] Comment on above: Performed By: #### Malini PIZANO UMICRO #### [facility] [address] [place] [address] Dr. Florencio Narayanan Glucose Ql (U) Negative Normal NEGATIVE [facility] Comment on above: Performed By: #### Malini PIZANO UMICRO #### [facility] [address] [place] [address] Dr. Florencio Narayanan Hemoglobin Ql (U) LARGE Abnormal NEGATIVE The [place] Comment on above: Performed By: #### Malini PIZANO UMICRO #### [facility] [address] [place] [address] Dr. Florencio Narayanan Ketones Ql (U) TRACE Abnormal NEGATIVE [facility] Comment on above: Performed By: #### Malini PIZANO UMICRO #### [facility] [address] [place] [address] Dr. Florencio Narayanan LEUKOCYTES LARGE Abnormal NEGATIVE [facility] Comment on above: Performed By: #### Malini PIZANO UMICRO #### [facility] [address] [place] [address] Dr. Florencio Narayanan Nitrite Ql (U) Positive Abnormal NEGATIVE [facility] Comment on above: Performed By: #### Malini PIZANO UMICRO #### [facility] [address] [place] [address] Dr. Florencio Narayanan pH (U) 5.5 [pH] Normal 5-9 [facility] Comment on above: Performed By: #### Malini PIZANO UMICRO #### [facility] [address] [place] [address] Dr. Florencio Narayanan SPEC GRAVITY 1.010 Normal 1.005-<=1.0 [facility] Comment on above: Performed By: #### Malini PIZANO UMICRO #### [facility] [address] [place] [address] Dr. Florencio Narayanan UA PROTEIN TRACE Normal NEGATIVE/ TRACE [facility] Comment on above: Performed By: #### Malini PIZANO UMICRO #### [facility] [address] [place] [address] Dr. Florencio Narayanan UR MICRO IND INDICATED Normal [facility] Comment on above: Performed By: #### Malini PIZANO UMICRO #### [facility] [address] [place] [address] Dr. Florencoi Narayanan Urobilinogen Qn (U) 0.2 {Zenia'U}/dL Normal 0.2 - 1. 0 [facility] Comment on above: Performed By: #### Malini PIZANO UMICRO #### [facility] [address] [place] [address] Dr. Florencio Narayanan LIPASEon 06-09-2022 Lipase [Catalytic activity/Vol] 68.0 U/L Critically low 73.0-393.0 [facility] Comment on above: Performed By: #### C BLAKE LIPEse CMAALESIA #### [facility] [address] [place] [address] Dr. Florencio Narayanan PROF 14(COMP METB)on 023 Albumin [Mass/Vol] 2.5 g/dL Critically low 3.4-5.0 [facility] Comment on above: Performed By: #### C MP, LIPA, CMADM #### [facility] [address] [address] [address] Florencio Narayanan Albumin/Globulin [Mass ratio] 0.6 {ratio} Normal [facility] Comment on above: Performed By: #### C MP, LIPA, CMADM #### [facility] [address] [address] [address] Florencio Narayanan ALP [Catalytic activity/Vol] 150 U/L Critically high 46-116 [facility] Comment on above: Performed By: #### C MP, LIPA, CMADM #### [facility] [address] [address] [address] Florencio Narayanan ALT [Catalytic activity/Vol] 27 U/L Normal 14-59 [facility] Comment on above: Performed By: #### C MP, LIPA, CMADM #### [facility] [address] [address] [address] Florencio Narayanan Anion gap [Moles/Vol] 12.8 mmol/L Normal [facility] Comment on above: Performed By: #### C MP, LIPA, CMADM #### [facility] [address] [address] [address] Florencio Narayanan AST [Catalytic activity/Vol] 31 U/L Normal 15-37 [facility] Comment on above: Performed By: #### C MP, LIPA, CMADM #### [facility] [address] [address] [address] Florencio Narayanan Bilirubin [Mass/Vol] 1.1 mg/dL Critically high 0.2-1.0 [facility] Comment on above: Performed By: #### C MP, LIPA, CMADM #### [facility] [address] [address] [address] Florencio Narayanan Calcium [Mass/Vol] 9.1 mg/dL Normal 8.5-10.1 [facility] Comment on above: Performed By: #### C MP, LIPA, CMADM #### [facility] [address] [address] [address] Florencio Narayanan Chloride [Moles/Vol] 95 mmol/L Critically low 98-107 [facility] Comment on above: Performed By: #### C MP, LIPA, CMADM #### [facility] [address] [address] [address] Florencio Narayanan CO2 [Moles/Vol] 29.4 mmol/L Normal 21.0-32.0 [facility] Comment on above: Performed By: #### C MP LIPA, CMADM #### [facility] [address] [place] [address] Dr. Florencio Narayanan Creatinine [Mass/Vol] 1.34 mg/dL Critically high 0.55-1.02 [facility] Comment on above: Performed By: #### C BLAKE LIPA, CMADM #### [facility] [address] [place] [address] Dr. Florencio Narayanan EGFR-AF TRISTANIAN 47 mL/min/1.73m2 Critically low >=60 [facility] Comment on above: Performed By: #### C MP, LIPA, CMADM #### [facility] [address] [place] [address] Dr. Florencio Narayanan EGFR-NON AF TRISTANIAN 39 mL/min/1.73m2 Critically low >=60 [facility] Comment on above: Performed By: #### C MP LIPA, CMADM #### [facility] [address] [place] [address] Dr. Florencio Narayanan Globulin (S) [Mass/Vol] 4.3 g/dL Normal [facility] Comment on above: Performed By: #### C MP, LIPA, CMADM #### [facility] [address] [place] [address] Dr. Florencio Narayanan Glucose [Mass/Vol] 118 mg/dL Critically high 74-106 [facility] Comment on above: Performed By: #### C MP, LIPA, CMADM #### [facility] [address] [place] [address] Dr. Florencio Narayanan Potassium [Moles/Vol] 3.2 mmol/L Critically low 3.5-5.1 [facility] Comment on above: Performed By: #### C MP, LIPA, CMADM #### [facility] [address] [place] [address] Dr. Florencio Narayanan Protein [Mass/Vol] 6.8 g/dL Normal 6.4-8.2 [facility] Comment on above: Performed By: #### C MP, LIPA, CMADM #### [facility] [address] [place] [address] Dr. Florencio Narayanan Sodium [Moles/Vol] 134 mmol/L Critically low 136-145 [facility] Comment on above: Performed By: #### C MP, LIPA, CMADM #### [facility] [address] [place] [address] Dr. Florencio Narayanan Urea nitrogen [Mass/Vol] 29.0 mg/dL Critically high 7.0-18.0 [facility] Comment on above: Performed By: #### C MP, LIPA, CMADM #### [facility] [address] [place] [address] Dr. Florencio Narayanan Urea nitrogen/Creatinine [Mass ratio] 21.6 mg/mg Normal [facility] Comment on above: Performed By: #### C MP, LIPA, CMADM #### [facility] [address] [place] [address] Dr. Florencio Narayanan URINE MICROSCOPIC ONLYon BACTERIA SMALL Abnormal NONE SEEN [facility] Comment on above: Performed By: #### Malini PIZANO UMICRO #### [facility] [address] [place] [address] Dr. Florencio Narayanan Bacteria identified Cx Nom (U) INDICATED Normal [facility] Comment on above: Performed By: #### E RUR UMICRO #### [facility] [address] [place] [address] Dr. Florencio Narayanan CAST NONE SEEN Normal NONE SEEN [facility] Comment on above: Performed By: #### E RUR, UMICRO #### [facility] [address] [place] [address] Dr. Florencio Narayanan Crystals LM Nom (Urine sed) NONE SEEN Normal NONE SEEN [facility] Comment on above: Performed By: #### E RUR, UMICRO #### [facility] [address] [address] [address] Florencio Narayanan Epithelial cells LM Ql (Urine sed) FEW Abnormal NONE SEEN /RARE [facility] Comment on above: Performed By: #### E DANGELOR, UMICRO #### [facility] [address] [address] [address] Florencio Narayanan MUCOUS NONE SEEN Normal NONE SEEN [facility] Comment on above: Performed By: #### E HARINDER, UMICRO #### [facility] [address] [address] [address] Florencio Narayanan RBC 2-5 Abnormal 0-2 [facility] Comment on above: Performed By: #### E HARINDER, UMICRO #### [facility] [address] [place] [address] Dr. Florencio Narayanan WBC 10-20 Abnormal NONE SEEN [facility] Comment on above: Performed By: #### Malini PIZANO, UMICRO #### [facility] [address] [place] [address] Dr. Florencio Narayanan XR CHEST 2 Von [...] JOAQUÍN ATKINS Date: 2022-06-09 12:24 Normal [facility] CULTURE URINEon 04-16-2022 CULTURE URINE Isolate [...] Trimethoprim/Sulfamet hoxazole >=320 R F Normal [facility] Comment on above: Performed By: #### C #### [facility] [address] [place], [place] [address] Dr. Florencio Narayanan MRI Hip w/o Righton [...] by Ramon Ambrocio on 09/11/2021 1545 Normal [facility] Helper Consult Reporton 03-14-2020 Consult Report [facility] CONSULTATION BETTIE BURNS 3ET [id number] [id number] OBSV ANABEL WATKINS MD [id number] REFERRING PHYSICIAN: CONSULTING PHYSICIAN: Renetta Almanzar MD DATE OF CONSULTATION: 03/11/2020 REASON: A near syncopal event in a 74-year-old female, with a history of atrial fibrillation, previous cardiac ablation, who was the time of evaluation noted to have a positive test for COVID. HISTORY OF PRESENT ILLNESS: Mrs. Burns is a very pleasant, alert and oriented -tfeo-drw female who was brought into the emergency [...] quarantine. Many thanks. RENETTA ALMANZAR MD BD/MedBoone /[id number] Normal [facility] BASICMETAon 03-11-2020 GFR AA >60 Normal [facility] Comment on above: Result Comment: Afri can Filipino GFR Calc Medical judgement is necessary to [...] for drug dosing. Performed By: #### 1 90247, 014084, 512815 ####[facility] [address] [place], [place] [id number] Medical Director: Fahad Cast MD GFR/1.73 sq M predicted among non-blacks MDRD (S/P/Bld) [Vol rate/Area] 56 mL/min/1.73m? Normal [facility] Comment on above: Result Comment: Non GFR [...] for drug dosing. Performed By: #### 1 67600, 708889, 855307 ####[facility] [address] [place] [address] Medical Director: Fahad Cast MD Osmolality [Osmolality] 291 mOsm/kg Normal 275-295 [facility] Comment on above: Performed By: #### 1 18153, 765364, 689966 ####[facility] [address] [place] [address] Medical Director: Fahad Cast MD Urea nitrogen/Creatinine [Mass ratio] 24.5 mg/mg Normal [facility] Comment on above: Performed By: #### 1 64745, 881368, 117555 ####[facility] [address] [place] [address] Medical Director: Fahad Cast MD Calcium [Mass/Vol] 9.3 mg/dL Normal 8.5-10.5 [facility] Comment on above: Performed By: #### 1 43901, 872690, 769052 ####[facility] [address] [place] [address] Medical Director: Fahad Cast MD Chloride [Moles/Vol] 108 mmol/L Normal 100-109 [facility] Comment on above: Performed By: #### 1 80082, 154725, 711679 ####[facility] [address] [place] [address] [place] [id number]) [phone] Director: Fahad Cast MD CO2, venous 28.9 mmol/L Normal 21.0-32.0 [facility] Comment on above: Performed By: #### 1 49714, 395838, 763497 ####[facility] [address]85 [place] [address] Medical Director: Fahad Cast MD Creatinine [Mass/Vol] 1.0 mg/dL Normal 0.6-1.0 [facility] Comment on above: Performed By: #### 1 44181, 203056, 814202 ####[facility] [address]uar[address] [place] [address] [facility] Director: Fahad Cast MD Glucose [Mass/Vol] 98 mg/dL Normal 72-100 [facility] Comment on above: Result Comment: Sharon puncture should occur prior to sulfasalazine administration due to the potential for falsely depressed results. Venipuncture should occur prior to sulfapyridine administration due to the potential falsely elevated results. Baseline assay values before administration of sulfasalazine and sulfapyridine therapy would not be affected. Performed By: #### 1 63709, 600016, 252117 ####[facility] [address]olbmc04599 [place], [place] [id number]) [phone] Director: Fahad Cast MD Potassium [Moles/Vol] 4.2 mmol/L Normal 3.5-5.1 [facility] Comment on above: Performed By: #### 1 84220, 827481, 545589 ####[facility] T[address]zzor78716 [place] [address] Medical Director: Fahad Cast MD Sodium [Moles/Vol] 144 mmol/L Normal 135-145 [facility] Comment on above: Performed By: #### 1 66777, 003543, 927986 ####[facility] [address] [place] [address] Medical Director: Fahad Cast MD Urea nitrogen [Mass/Vol] 24 mg/dL High 10-20 [facility] Comment on above: Performed By: #### 1 13545, 406052, 031138 ####[facility] [address] [place] [id number]) [phone] Director: Fahad Cast MD CBCNDon 03-11-2020 Erythrocyte distribution width (RBC) [Ratio] 14.4 % Normal 11.5-14.5 [facility] Comment on above: Performed By: #### 1 80397, 731247, 440344 #### [facility] [address] [place] [address] Passenger Relations Representative: Fahad Cast MD Hematocrit (Bld) [Volume fraction] 33.9 % Low 36.0-46.0 [facility] Comment on above: Performed By: #### 1 19881, 988968, 610433 #### [facility] [address] [place] [address] Passenger Relations Representative: Fahad Cast MD Hemoglobin (Bld) [Mass/Vol] 11.2 g/dL Low 12.0-16.0 [facility] Comment on above: Performed By: #### 1 63111, 786820, 389098 #### [facility] [address] [place] [address] Passenger Relations Representative: Fahad Cast MD MCH (RBC) [Entitic mass] 29.5 pg Normal 27.0-34.0 [facility] Comment on above: Performed By: #### 1 21548, 397371, 131260 #### [facility] [address] [place] [address] Passenger Relations Representative: Fahad Cast MD MCHC (RBC) [Mass/Vol] 33.0 g/dL Normal 32.0-37.0 [facility] Comment on above: Performed By: #### 1 58156, 049323, 378276 #### [facility] [address] [place] [address] Passenger Relations Representative: Fahad Cast MD MCV (RBC) [Entitic vol] 89.5 fL Normal 80.0-100.0 [facility] Comment on above: Performed By: #### 1 74814, 000592, 356220 #### [facility] [address] [place] [address] Passenger Relations Representative: Fahad Cast MD Platelet mean volume (Bld) [Entitic vol] 6.8 fL Low 7.4-10.4 [facility] Comment on above: Performed By: #### 1 31970, 739702, 660524 #### [facility] [address] [place] [address] Passenger Relations Representative: Fahad Cast MD Platelets (Bld) [#/Vol] 232 x1000 Normal 150-450 [facility] Comment on above: Performed By: #### 1 05228, 714875, 780546 #### [facility] [address] [place] [address] Passenger Relations Representative: Fahad Cast MD RBC (Bld) [#/Vol] 3.79 x10 Low 4.20-5.40 [facility] Comment on above: Result Comment: Note : RBC morphology is normal unless otherwise stated. Evaluation performed only if differential is requested. Performed By: #### 1 24849, 877278, 652743 #### [facility] [address] [place] [address] Passenger Relations Representative: Fahad Cast MD WBC (Bld) [#/Vol] 5.8 10*3/uL Normal [facility] Comment on above: Performed By: #### 1 84318, 693038, 897452 #### [facility] [address] [place] [address] Passenger Relations Representative: Fahad Cast MD WBC (Bld) [#/Vol] 5.8 x10 Normal 4.5-11.0 [facility] Comment on above: Performed By: #### 1 71482, 900501, 563604 #### [facility] [address] [place] [address] Passenger Relations Representative: Fahad Cast MD D Dimer HSon 03-11-2020 D Dimer HS 821 ng/mL FEU High <=499 [facility] Comment on above: Result Comment: Excl usion of PE and DVT The D Dimer HS assay is reported in ng/ml Fibrinogen Equivalent Units (FEU). Per insurance risk manager?s instructions for use, a value less than 500ng/ml (FEU) may help to exclude DVT and /or PE in outpatients when the assay is used with a clinical pretest probability assessment. D-Dimer used for DIC Screens Assay results should be used with other information, including the clinical context in forming a diagnosis. Performed By: #### C [id number] ####[facility] [address] [phone] Medical Director: Fahad Cast MD LDHon 03-11-2020 LDH 198 unit/L Normal 84-246 [facility] Comment on above: Performed By: #### 1 80602, 784308, 915797 #### [facility] [address] [place] [address] Passenger Relations Representative: Fahad Cast MD Progress Note-Physicianon Progress Note-Physician [...] medications. 6) DVT ppx: On Eliquis Normal [facility] Utilization Review Noteon Utilization Review Note ID Consult pendi ng DISCHARGE WRITTEN AND PLANNED. Normal [facility] AUTO DIFFon 03-10-2020 Basophils (Bld) [#/Vol] 0.05 x1000 Normal 0.00-0.20 [facility] Comment on above: Performed By: #### 1 70733, 254751, 6728049 ####[facility] [address] [phone] Medical Director: Fahad Cast MD Basos % 0.6 % Normal [facility] Comment on above: Performed By: #### 1 , 700583, 6031950 ####[facility] [address] [phone] Medical Director: Fahad Cast MD Eos Count 0.15 x1000 Normal 0.00-0.50 [facility] Comment on above: Performed By: #### 1 , 938931, 6470827 ####[facility] [address] [place] [address] Medical Director: Fahad Cast MD Eosinophils/100 WBC (Bld) 1.8 % Normal [facility] Comment on above: Performed By: #### 1 , 742861, 4891441 ####[facility] [address] [place] [address] Medical Director: Fahad Cast MD Lymphocytes (Bld) [#/Vol] 1.05 x1000 Low 1.20-4.80 [facility] Comment on above: Performed By: #### 1 , 271242, 6786176 ####[facility] [address] [phone] Medical Director: Fahad Cast MD Lymphocytes/100 WBC (Bld) 12.7 % Normal [facility] Comment on above: Performed By: #### 1 , 098797, 1731127 ####[facility] [address] [phone] Medical Director: Fahad Cast MD [place] Count 0.70 x1000 Normal 0.10-1.00 [facility] Comment on above: Performed By: #### 1 98315, 024128, 4771808 ####[facility] [address] [place] [address] Medical Director: Fahad Cast MD Monocytes/100 WBC (Bld) 8.4 % Normal [facility] Comment on above: Performed By: #### 1 80813, 619712, 8086527 ####[facility] [address] [place] [address] Medical Director: Fahad Cast MD Neutrophils (Bld) [#/Vol] 6.32 x1000 Normal 1.40-8.80 [facility] Comment on above: Performed By: #### 1 72829, 636402, 0505471 ####[facility] [address]ud[address]35 [place] [address] Medical Director: Fahad Cast MD Neutrophils/100 WBC (Bld) 76.4 % Normal [facility] Comment on above: Performed By: #### 1 17559, 280318, 8989592 ####[facility] [address] [place] [address] Medical Director: Fahad Cast MD COMPMETAon 03-10-2020 Albumin [Mass/Vol] 3.4 g/dL Normal 3.4-5.0 [facility] Comment on above: Performed By: #### 1 81094, 792793, 1720701 ####[facility] [address]wr[address]120 [place] [address] Medical Director: Fahad Cast MD Albumin/Globulin [Mass ratio] 0.8 {ratio} Normal [facility] Comment on above: Performed By: #### 1 41544, 738797, 3417656 ####[facility] [address]rm[address]sl[address]99 [place] [address] Medical Director: Fahad Cast MD Alk Phos 71 unit/L Normal 45-117 [facility] Comment on above: Performed By: #### 1 43555, 627086, 7060916 ####[facility] [address]wfuo29294 [place] [address] Medical Director: Fahad Cast MD Bilirubin [Mass/Vol] 0.37 mg/dL Normal 0.20-1.00 [facility] Comment on above: Result Comment: Use of this assay is not recommended for patients undergoing treatment with eltrombopag due to the potential for falsely elevated results. Performed By: #### 1 29418, 729427, 9955665 ####[facility] [address]ie[address]472 [place] [address] Medical Director: Fahad Cast MD Calcium [Mass/Vol] 9.4 mg/dL Normal 8.5-10.5 [facility] Comment on above: Performed By: #### 1 , 917889, 5105814 ####[facility] [address] [place] [address] Medical Director: Fahad Cast MD Chloride [Moles/Vol] 108 mmol/L Normal 100-109 [facility] Comment on above: Performed By: #### 1 05516, 300976, 9488781 ####[facility] [address]36[address] [place] [address] Medical Director: Fahad Cast MD CO2, venous 28.2 mmol/L Normal 21.0-32.0 [facility] Comment on above: Performed By: #### 1 94009, 783651, 4755145 ####[facility] Xdmlicin06426 [place] [address] Medical Director: Fahad Cast MD Creatinine [Mass/Vol] 1.2 mg/dL High 0.6-1.0 [facility] Comment on above: Performed By: #### 1 99999, 218257, 1684859 ####[facility] [address]375 [place] [address] Medical Director: Fahad Cast MD GFR AA 53 [facility] Comment on above: Result Comment: Afri can Filipino GFR Calc Medical judgement is necessary to [...] for drug dosing. Performed By: #### 1 92394, 247725, 8083415 ####[facility] [address] [place] [address] Medical Director: Fahad Cast MD GFR/1.73 sq M predicted among non-blacks MDRD (S/P/Bld) [Vol rate/Area] 44 mL/min/1.73m? [facility] Comment on above: Result Comment: Non GFR [...] for drug dosing. Performed By: #### 1 87663, 877685, 4459794 ####[facility] [address]yz[address] [place] [address] Medical Director: Fahad Cast MD Globulin (S) [Mass/Vol] 4.0 g/dL Normal [facility] Comment on above: Performed By: #### 1 80919, 869210, 8334412 ####[facility] [address]uriwf24349 [place] [address] Medical Director: Fahad Cast MD Glucose [Mass/Vol] 143 mg/dL High 72-100 [facility] Comment on above: Result Comment: Sharon puncture should occur prior to sulfasalazine administration due to the potential for falsely depressed results. Venipuncture should occur prior to sulfapyridine administration due to the potential falsely elevated results. Baseline assay values before administration of sulfasalazine and sulfapyridine therapy would not be affected. Performed By: #### 1 68764, 179292, 0093836 ####[facility] [address] [place], [place] [id number]) [phone] Director: Fahad Cast MD GOT 18 unit/L Normal 15-37 [facility] Comment on above: Result Comment: Sharon puncture should occur prior to sulfasalazine and/or sulfapyridine administration due to the potential for falsely depressed results. Baseline assay values before administration of sulfasalazine and sulfapyridine therapy would not be affected. Performed By: #### 1 71666, 214762, 7737086 ####[facility] [address]ry[address] [place], [place] [id number]) [phone] Director: Fahad Cast MD GPT 19 unit/L Normal 13-56 [facility] Comment on above: Result Comment: Sharon puncture should occur prior to sulfasalazine and/or sulfapyridine administration due to the potential for falsely depressed results. Baseline assay values before administration of sulfasalazine and sulfapyridine therapy would not be affected. Performed By: #### 1 61991, 172579, 3689828 ####[facility] [address]fvi[address] [place], [place] [id number]) [phone] Director: Fahad Cast MD Osmolality [Osmolality] 293 mOsm/kg Normal 275-295 [facility] Comment on above: Performed By: #### 1 16565, 977736, 9459477 ####[facility] Ylhy[address]art49165 [place] [address] Medical Director: Fahad Cast MD Potassium [Moles/Vol] 4.0 mmol/L Normal 3.5-5.1 [facility] Comment on above: Performed By: #### 1 22095, 446173, 2181306 ####[facility] Okjwmova79137 [place] [address] Medical Director: Fahad Cast MD Protein [Mass/Vol] 7.4 g/dL Normal 6.0-8.5 [facility] Comment on above: Performed By: #### 1 10454, 448129, 8769239 ####[facility] [address]2841 [place] [address] Medical Director: Fahad Cast MD Sodium [Moles/Vol] 142 mmol/L Normal 135-145 [facility] Comment on above: Performed By: #### 1 83424, 389748, 8455870 ####[facility] [address]aw[address]607 [place] [address] Medical Director: Fahad Cast MD Urea nitrogen [Mass/Vol] 32 mg/dL High 10-20 [facility] Comment on above: Performed By: #### 1 37410, 666524, 3600003 ####[facility] Sxrwprit27089 [place] [address] Medical Director: Fahad Cast MD Urea nitrogen/Creatinine [Mass ratio] 26.7 mg/mg Normal [facility] Comment on above: Performed By: #### 1 10102, 542831, 7328169 ####[facility] [address]jsa12381 [place] [address] Medical Director: Fahad Cast MD COVID-19 by PCR SWEDon 03-10 COVID-19 by PCR SWED Positive [facility] Comment on above: Result Comment: CALL DEANNA CHRISTIE 03/10/2020 18:23:22 EST BY SHF; RBR Performed By: #### C [id number] ####[facility] [address]rebt[address] [place], [place] [id number]) [phone] Director: Fahad Cast MD CRP QUANTon 03-10-2020 C-Reactive Protein, Quantitative 0.8 mg/dL High 0.0-0.3 [facility] Comment on above: Performed By: #### 1 24715, [id number], [id number], [id number] #### [facility] [address] [id number] Passenger Relations Representative: Fahad Cast MD CT ABD PELVIS W [...] Oni Liu MD 03/10/2020 3:50 PM SECURITY SYSTEM ADMINISTRATOR Technologist: LIEN BLANCA Dictated By: ONI LIU MD Signed By: ONI LIU MD Signed Out: 03/10/20 16:50:49 Normal [facility] D Dimer HSon 03-10-2020 D Dimer HS 264 ng/mL FEU Normal <=499 [facility] Comment on above: Result Comment: Excl usion of PE and DVT The D Dimer HS assay is reported in ng/ml Fibrinogen Equivalent Units (FEU). Per insurance risk manager?s instructions for use, a value less than 500ng/ml (FEU) may help to exclude DVT and /or PE in outpatients when the assay is used with a clinical pretest probability assessment. D-Dimer used for DIC Screens Assay results should be used with other information, including the clinical context in forming a diagnosis. Performed By: #### 1 60123, [id number], [id number], [id number] #### [facility] [address] [place] [address] Passenger Relations Representative: Fahad Cast MD ED Physician Reporton 2019 [...] Line Saline Flush: 3 mL, IV Push, [id number] Documented Medications Documented Eliquis 5 mg oral [...] Interp, Sinus rhythm with first-degree AV block, UT interval 256, QT/QTc/433, incomplete right bundle branch [...] /100WBC NA Lymph % 12.7 % NA [place] % 8.4 % NA Neutrophil % 76.4 % NA Eosin % 1.8 % NA Basos % 0.6 % NA Lymph Count 1.05 x1000 LOW [place] Count 0.70 x1000 NORMAL Neutrophil Count (ANC) [...] Monae Hernandez MD 03/10/2020 1:58 PM SECURITY SYSTEM ADMINISTRATOR Signed By: MONAE HERNANDEZ MD CT ABD [...] by: Oni Liu MD 03/10/2020 3:50 PM [facility] Signed By: ONI LIU MD [...] Course: improving. Impression and Plan Diagnosis Syncope ([id number] R55, Working, Medical) Plan Condition: Stable. Disposition: Place in Observation Telemetry Unit, BARRERA VILLEGAS, JERRICA. Counseled: Patient, Regarding diagnosis, Regarding diagnostic results, Regarding treatment plan, Patient indicated understanding of instructions. Notes: IAracely am scribing for and in the presence of Gladys Hilario DO. Scribe Signature: Fatemeh Novak, 03/10/2020 14:53 , I personally performed the services described in the documentation, reviewed and edited the documentation which was dictated to the scribe in my presence, and it accurately records my words and actions.. Normal [facility] ED Pre-Arrival Formon 2019 ED Pre-Arrival Form Pre-Arrival Summary Name: STR, Current Date: 03/10/2020 13:52:19 EST Gender: Date of : Age: Pre-Arrival Type: EMS ETA: 03/10/2020 14:15:00 EST Primary Care Physician: Presenting Problem: Pre-Arrival User: Neil Vázquez RN Referring Source: Location: 1 [facility] Emergency Department [address] [place] [address] Notes: Vital Signs: Doctor Call Back: DNR Status: Miscellaneous Issues: Normal [facility] ED Progress Noteon 0 ED Progress Note report not put in by previous rn pt here for syncopal episode after diarrhea episode pt has hx of afib. pt covid+ report called to neil rn will come get pt Normal [facility] FERRITINon 03-10-2020 Ferritin [Mass/Vol] 32 ng/mL Normal 8-252 [facility] Comment on above: Performed By: #### 1 [id number], [id number], [id number] #### [facility] [address] [place] [address] Passenger Relations Representative: Fahad Cast MD HEMOon 03-10-2020 DIFF? No Normal [facility] Comment on above: Performed By: #### 1 85837, [id number], [id number] ####[facility] [id number] [place] [address] Medical Director: Fahad Cast MD Erythrocyte distribution width (RBC) [Ratio] 14.5 % Normal 11.5-14.5 [facility] Comment on above: Performed By: #### 1 34849, [id number], [id number] ####[facility] [address] [place] [id number] Medical Director: Fahad Cast MD Hematocrit (Bld) [Volume fraction] 35.8 % Low 36.0-46.0 [facility] Comment on above: Performed By: #### 1 14321, [id number], [id number] ####[facility] [address]1924 [place] [address] Medical Director: Fahad Cast MD Hemoglobin (Bld) [Mass/Vol] 11.7 g/dL Low 12.0-16.0 [facility] Comment on above: Performed By: #### 1 40777, [id number], [id number] ####[facility] [address]xba60918 [place] [address] Medical Director: Fahad Cast MD MCH (RBC) [Entitic mass] 29.4 pg Normal 27.0-34.0 [facility] Comment on above: Performed By: #### 1 93083, [id number], [id number] ####[facility] [address] [place], [place] [id number] Medical Director: Fahad Cast MD MCHC (RBC) [Mass/Vol] 32.7 g/dL Normal 32.0-37.0 [facility] Comment on above: Performed By: #### 1 66033, 336232, [id number] ####[facility] [address] [place] [address] Medical Director: Fahad Cast MD MCV (RBC) [Entitic vol] 89.8 fL Normal 80.0-100.0 [facility] Comment on above: Performed By: #### 1 01051, 625213, [id number] ####[facility] [address] [place] [address] Medical Director: Fahad Cast MD Nucleated RBC (Bld) [#/Vol] 0 /100WBC Normal [facility] Comment on above: Performed By: #### 1 62597, 356828, [id number] ####[facility] Olwuaejx21740 [place] [address] Medical Director: Fahad Cast MD Platelet mean volume (Bld) [Entitic vol] 6.7 fL Low 7.4-10.4 [facility] Comment on above: Performed By: #### 1 59312, 891014, [id number] ####[facility] T[address]xyi93906 [place] [address] Medical Director: aFhad Cast MD Platelets (Bld) [#/Vol] 252 x1000 Normal 150-450 [facility] Comment on above: Performed By: #### 1 , [id number], [id number] ####[facility] By[address]lnxqa39261 [place] [address] Medical Director: Fahad Cast MD RBC (Bld) [#/Vol] 3.99 x10 Low 4.20-5.40 [facility] Comment on above: Result Comment: Note : RBC morphology is normal unless otherwise stated. Evaluation performed only if differential is requested. Performed By: #### 1 , 536841, [id number] ####[facility] Ddrghtkv17214 [place] [address] Medical Director: Fahad Cast MD WBC (Bld) [#/Vol] 8.3 10*3/uL Normal [facility] Comment on above: Performed By: #### 1 , [id number], [id number] ####[facility] [address]yyofthh72613 [place] [address] Medical Director: Fahad Cast MD WBC (Bld) [#/Vol] 8.3 x10 Normal 4.5-11.0 [facility] Comment on above: Performed By: #### 1 98834, 828068, [id number] ####[facility] Gbjfwudj29906 [place] [address] Medical Director: Fahad Cast MD History and [...] ppx: On Eliquis OT MESA on Normal [facility] LACTATEon 03-10-2020 Lactate [Moles/Vol] 1.8 mmol/L Normal 0.4-2.0 [facility] Comment on above: Performed By: #### 1 31223 #### [facility] [address] [place] [address] Passenger Relations Representative: Fahad Cast MD LIPon 03-10-2020 Lipase [Catalytic activity/Vol] 135 unit/L Normal 73-393 [facility] Comment on above: Performed By: #### 1 75281, 020810, [id number] ####[facility] Nkhyoezs04367 [place] [address] Medical Director: Fahad Cast MD MG LEVELon 03-10-2020 Magnesium [Mass/Vol] 1.9 mg/dL Normal 1.6-2.6 [facility] Comment on above: Performed By: #### 1 61989, 531622, [id number] ####[facility] [address] [place] [id number] Medical Director: Fahad Cast MD PCTon 03-10-2020 Procalcitonin <0.05 Normal [facility] Comment on above: Result Comment: INTE RP [...] or septic shock. Performed By: #### 1 84122, [id number], [id number] #### [facility] [address] [place] [address] Passenger Relations Representative: Fahad Cast MD TROPONINon 03-10-2020 Troponin I.cardiac [Mass/Vol] ng/mL Normal 0.000-0.099 [facility] Comment on above: Result Comment: This test is a quantitative determination of cardiac troponin I. High levels of serum biotin may interfere with this test. Performed By: #### 1 55143, 027685, 093318 ####[facility] [address]wlcmjr27095 [place] [address] Medical Director: Fahad Cast MD [...] Monae Hernandez MD 03/10/2020 1:58 PM SECURITY SYSTEM ADMINISTRATOR Technologist: THANG JAMES Dictated By: MONAE HERNANDEZ MD Signed By: MONAE HERNANDEZ MD Signed Out: 03/10/20 14:58:26 Normal [facility] Vital Signs Date Time Vital Sign Value Performing Clinician Facility 02-03-2025 08: Body height 165.1 cm Elliot Starks MD Work Phone: [facility] 02-03-2025 08: Body mass index (BMI) [Ratio] 28.4 kg/m2 Elliot Starks MD Work Phone: [facility] 02-03-2025 08:0400 Body weight 77.56 kg Elliot Starks MD Work Phone: [facility] 02-03-2025 08:21-0400 Diastolic blood pressure 72 mm[Hg] Elliot Starks MD Work Phone: [facility] 02-03-2025 08:21-0400 Heart rate 61 /min Elliot Starks MD Work Phone: [facility] 02-03-2025 08:21-0400 Systolic blood pressure 102 mm[Hg] Elliot Starks MD Work Phone: [facility] 12-29-2024 10:27-0400 Body height 165.1 cm Elliot Starks MD Work Phone: [facility] 12-29-2024 10:27-0400 Body mass index (BMI) [Ratio] 29.1 kg/m2 Elliot Starks MD Work Phone: [facility] 12-29-2024 10:27-0400 Body weight 79.4 kg Elliot Starks MD Work Phone: [facility] 12-29-2024 10:27-0400 Diastolic blood pressure 69 mm[Hg] Elliot Starks MD Work Phone: [facility] 12-29-2024 10:27-0400 Heart rate 52 /min Elliot Starks MD Work Phone: [facility] 12-29-2024 10:27-0400 Systolic blood pressure 148 mm[Hg] Elliot Starks MD Work Phone: [facility] 11-08-2024 08:34-0400 Body height 165.1 cm Radha Barron FINISHING DEPARTMENT SUPERVISOR-DOOR INSTALLER Work Phone: [employer] [facility] 11-08-2024 08:34-0400 Body mass index (BMI) [Ratio] 29.62 kg/m2 Radha Mart FINISHING DEPARTMENT SUPERVISOR-DOOR INSTALLER Work Phone: [employer] [facility] 11-08-2024 08:34-0400 Body weight 80.74 kg Radha Mart FINISHING DEPARTMENT SUPERVISOR-DOOR INSTALLER Work Phone: [employer] [facility] 11-08-2024 08:34-0400 Diastolic blood pressure 78 mm[Hg] Radha HANEY Work Phone: [facility] [employer] [facility] 11-08-2024 08:34-0400 Heart rate 55 /min Radha HANEY [facility] 11-08-2024 08:34-0400 SaO2% (BldA) [Mass fraction] 96 % Radha HANEY Work [facility] 11-08-2024 08:34-0400 Systolic blood pressure 130 mm[Hg] Radha HANEY Work Phone: [facility] [employer] [facility] 07-14-2024 13:15-0400 Body height 165.1 cm Paula HANEY Work Phone: [employer] [facility] [facility] 07-14-2024 13:15-0400 Body mass index (BMI) [Ratio] 27.96 kg/m2 Paula Fitzpatrick APRN-AUSTEN Work Phone: [facility] 07-14-2024 13:15-0400 Body weight 76.2 kg Paula Fitzpatrick APRN-AUSTEN Work Phone: [facility] 06-22-2024 12:54-0500 Blood Pressure Location Maria E Osman [facility] 06-22-2024 12:54-0500 Diastolic blood pressure 55 mm[Hg] Maria E Osman [facility] 06-22-2024 12:54-0500 Heart rate 56 /min Maria E Gutierreza [facility] 06-22-2024 12:54-0500 Respiratory rate 18 /min Maria E Gutierreza [facility] 06-22-2024 12:54-0500 Systolic blood pressure 125 mm[Hg] Maria E Osman [facility] 05-09-2024 09:17-0500 Body height 165.1 cm [facility] 05-09-2024 09:17-0500 Body mass index (BMI) [Ratio] 29.1 kg/m2 [facility] 05-09-2024 09:17-0500 Body weight 79.37 kg [facility] 05-09-2024 09:17-0500 Diastolic blood pressure 70 mm[Hg] [facility] 05-09-2024 09:17-0500 Heart rate 58 /min [facility] 05-09-2024 09:17-0500 Systolic blood pressure 116 mm[Hg] [facility] 04-30-2024 10:29-0500 Body height 165.1 cm [facility] 04-30-2024 10:29-0500 Body mass index (BMI) [Ratio] 29.1 kg/m2 [facility] 04-30-2024 10:29-0500 Body temperature 99.2 [degF] [facility] 04-30-2024 10:29-0500 Body weight 79.43 kg [facility] 04-30-2024 10:29-0500 Diastolic blood pressure 75 mm[Hg] [facility] 04-30-2024 10:29-0500 Heart rate 58 /min [facility] 04-30-2024 10:29-0500 Respiratory rate 16 /min [facility] 04-30-2024 10:29-0500 SaO2% (BldA) [Mass fraction] 94 % [facility] 04-30-2024 10:29-0500 Systolic blood pressure 146 mm[Hg] [facility] 02-01-2024 11:130400 Body height 165.1 cm [facility] 02-01-2024 11:13-0400 Body mass index (BMI) [Ratio] 28.3 kg/m2 [facility] 02-01-2024 11:130400 Body weight 77.11 kg [facility] 02-01-2024 11:130400 Diastolic blood pressure 72 mm[Hg] [facility] 02-01-2024 11:13-0400 Heart rate 60 /min [facility] 02-01-2024 11:13-0400 Systolic blood pressure 134 mm[Hg] [facility] 11-26-2023 14:08-0400 Body height 165.1 cm Miko Ohara MD Work Phone: [facility] 11-26-2023 14:08-0400 Body mass index (BMI) [Ratio] 27.96 kg/m2 Miko Ohara MD Work Phone: [facility] 11-26-2023 14:08-0400 Body temperature 97 [degF] Miko Ohara MD Work Phone: [facility] 11-26-2023 14:08-0400 Body weight 76.2 kg Miko Ohara MD Work Phone: [facility] 11-26-2023 09:56-0400 Body height 165.1 cm Mainor Post MD Work Phone: [facility] [employer] [facility] 11-26-2023 09:56-0400 Body mass index (BMI) [Ratio] 28.12 kg/m2 Manior Post MD Work Phone: [facility] [employer] [facility] 11-26-2023 09:56-0400 Body weight 76.66 kg Mainor Post MD Work Phone: [facility] [employer] [facility] 11-26-2023 09:56-0400 Diastolic blood pressure 76 mm[Hg] Mainor Post MD Work Phone: [facility] [employer] [facility] 11-26-2023 09:56-0400 Heart rate 56 /min Mainor Post MD Work Phone: [facility] [employer] [facility] 11-26-2023 09:56-0400 Systolic blood pressure 124 mm[Hg] Mainor Post MD Work Phone: [facility] [employer] [facility] 10-28-2023 08:41-0400 Body height 165.1 cm [facility] 10-28-2023 08:41-0400 Body mass index (BMI) [Ratio] 27.9 kg/m2 [facility] 10-28-2023 08:41-0400 Body weight 76.2 kg [facility] 10-28-2023 08:41-0400 Diastolic blood pressure 68 mm[Hg] [facility] 10-28-2023 08:41-0400 Heart rate 58 /min [facility] 10-28-2023 08:41-0400 Systolic blood pressure 106 mm[Hg] [facility] 08-20-2023 14:38-0400 Body height 165.1 cm [employer] Work Phone: [facility] [employer] [facility] 08-20-2023 14:38-0400 Body mass index (BMI) [Ratio] 27.96 kg/m2 [employer] Work Phone: [facility] [employer] [facility] 08-20-2023 14:38-0400 Body weight 76.2 kg [employer] Work Phone: [facility] [employer] [facility] 07-23-2023 14:45-0400 Body height 165.1 cm [employer] Work Phone: [employer] 07-23-2023 14:45-0400 Body mass index (BMI) [Ratio] 27.96 kg/m2 [employer] Work Phone: [employer] [facility] 07-23-2023 14:45-0400 Body weight 76.2 kg [employer] Work Phone: [employer] [facility] 2023 15:34-0500 Body temperature 97.9 [degF] Miko Ohara MD Work Phone: [employer] [facility] 2023 15:34-0500 Diastolic blood pressure 53 mm[Hg] Miko Ohara MD Work Phone: [employer] [facility] 2023 15:34-0500 Heart rate 80 /min Miko Ohara MD Work Phone: [facility] 2023 15:34-0500 Respiratory rate 16 /min Miko Ohara MD Work Phone: [facility] 2023 15:34-0500 SaO2% (BldA) [Mass fraction] 98 % Miko Ohara MD Work Phone: [facility] 2023 15:34-0500 Systolic blood pressure 110 mm[Hg] Miko Ohara MD Work Phone: [facility] 07-07-2023 16:39-0500 Body height 165.1 cm Miko Ohara MD Work Phone: [facility] 07-07-2023 16:39-0500 Body mass index (BMI) [Ratio] 28.02 kg/m2 Miko Ohara MD Work Phone: [facility] 07-07-2023 16:39-0500 Body weight 76.39 kg Miko Ohara MD Work Phone: [facility] 06-18-2023 14:31-0500 Body height 165.1 cm Miko Ohara MD Work Phone: [facility] 06-18-2023 14:31-0500 Body mass index (BMI) [Ratio] 28.12 kg/m2 Miko Ohara MD Work Phone: [facility] [employer] [facility] 06-18-2023 14:31-0500 Body weight 76.66 kg Miko Ohara MD Work Phone: [facility] 06-02-2023 11:19-0500 Body height 165.1 cm Mundo Diaz MD Work Phone: [facility] [employer] [facility] 06-02-2023 11:19-0500 Body mass index (BMI) [Ratio] 28.12 kg/m2 Mundo Diaz MD Work Phone: [facility] [employer] [facility] 06-02-2023 11:19-0500 Body weight 76.66 kg Mundo Diaz MD Work Phone: [facility] [employer] [facility] 06-02-2023 11:19-0500 Diastolic blood pressure 68 mm[Hg] Mundo Diaz MD Work Phone: [employer] 06-02-2023 11:19-0500 Heart rate 62 /min Mundo Diaz MD Work Phone: [employer] 06-02-2023 11:19-0500 SaO2% (BldA) [Mass fraction] 99 % Mundo Diaz MD Work Phone: [employer] 06-02-2023 11:19-0500 Systolic blood pressure 106 mm[Hg] Mundo Diaz MD Work Phone: [employer] 05-14-2023 09:38-0500 Body height 165.1 cm Miko Ohara MD Work Phone: [employer] 05-14-2023 09:38-0500 Body mass index (BMI) [Ratio] 29.12 kg/m2 Miko Ohara MD Work Phone: [employer] 05-14-2023 09:38-0500 Body temperature 98.2 [degF] Miko Ohara MD Work Phone: [employer] 05-14-2023 09:38-0500 Body weight 79.38 kg Miko Ohara MD Work Phone: [employer] 10-30-2022 14:45-0400 Body height 165.1 cm Elliot Starks Other [employer] Other 10-30-2022 14:45-0400 Body mass index (BMI) [Ratio] 28.4 kg/m2 Elliot Starks Other [employer] Other 10-30-2022 14:45-0400 Body weight 77.43 kg Elliot Starks Other [employer] Other 10-30-2022 14:45-0400 Diastolic blood pressure 66 mm[Hg] Elliot Starks Other [employer] Other 10-30-2022 14:45-0400 Systolic blood pressure 123 mm[Hg] Elliot Starks Other [employer] Other 06-04-2022 11:30-0500 Body height 165.1 cm Elliot Starks Other [employer] Other 06-04-2022 11:30-0500 Body mass index (BMI) [Ratio] 28.29 kg/m2 Elliot Starks Other [employer] Other 06-04-2022 11:30-0500 Body weight 77.11 kg Elliot Starks Other [employer] Other 06-04-2022 11:30-0500 Diastolic blood pressure 64 mm[Hg] Elliot Starks Other [employer] Other 06-04-2022 11:30-0500 SaO2% (BldA) [Mass fraction] 99 % Elliot Starks Other [employer] Other 06-04-2022 11:30-0500 Systolic blood pressure 104 mm[Hg] Elliot Starks Other [employer] Other Encounters Encounter Date Encounter Type Care Provider Facility Start: 02-14-2025 ambulatory Maria E Osman Facility:[facility] Start: 02-03-2025 Non-patient / Non-visit Marisa nayak MD -[facility] Work Phone: Start: 02-03-2025 End: 02-03-2025 ambulatory Elliot Starks MD Work Phone: [facility] Work Phone: Start: 02-03-2025 End: 02-03-2025 Patient encounter procedure Elliot Starks MD -[facility] Work Phone: Start: 01-31-2025 End: 02-02-2025 Refill Jovita Hernandez FINISHING DEPARTMENT SUPERVISOR-DOOR INSTALLER Work Phone: [facility] Comment on above: Med Refill Start: 01-31-2025 Non-patient / Non-visit Ayanna Melinda dotson CMA -[facility] Work Phone: Start: 01-29-2025 Non-patient / Non-visit Ian Case DO [facility] Work Phone: Start: 01-25-2025 End: 01-25-2025 ambulatory Maria E Jacqui Facility:[facility] Start: 01-25-2025 End: 01-25-2025 ambulatory Maria E Jacqui Facility:[facility] Start: 01-25-2025 End: 01-25-2025 Patient encounter procedure Maria E Osman [facility] Start: 01-17-2025 End: 01-17-2025 Refill Jovita Craigophdeanna FINISHING DEPARTMENT SUPERVISOR-DOOR INSTALLER Work Phone: [facility] Comment on above: Med Refill Start: 12-29-2024 End: 12-29-2024 ambulatory Elliot Starks MD Work Phone: [facility] Work Phone: Start: 12-29-2024 End: 12-29-2024 Patient encounter procedure Elliot Starks MD -[facility] Work Phone: Start: 12-27-2024 End: 12-27-2024 Bamboo flowsheet Radha Espinal MD Work Phone: [facility] Start: 12-27-2024 End: 12-27-2024 Bamthado flowsheet Radha Espinal MD [facility] Start: 12-27-2024 End: 12-27-2024 Patient encounter procedure Radha Espinal MD Work Phone: [facility] Comment on above: Seborrheic keratosis , inflamed (Primary Dx); Inflamed skin tag; Milia Med Refill Start: 12-27-2024 End: 12-27-2024 ambulatory RADHA ESPINAL Not Available Start: 12-19-2024 Non-patient / Non-visit Ayanna Melinda dotosn CMA -[facility] Work Phone: Start: 12-19-2024 Non-patient / Non-visit Govind Case [facility] Work Phone: Start: 12-18-2024 [facility] Work Phone: Start: 12-18-2024 End: 12-19-2024 Emergency department patient visit ELLIOT STARKS Facility:[facility] Start: 12-05-2024 End: 12-05-2024 ambulatory Daisy Liz MD Facility:[facility] Start: 11-29-2024 End: 11-29-2024 ambulatory Elliot Starks MD Work Phone: [facility] Work Phone: Start: 11-29-2024 End: 11-29-2024 Patient encounter procedure Elliot Starks MD -[facility] Work Phone: Start: 11-24-2024 End: 11-29-2024 Refill Jack Smith APRN-DOOR INSTALLER Work Phone: [facility] Comment on above: Med Refill Start: 11-09-2024 End: 01-09-2025 Follow-up encounter Alyce Deras RN [facility] Comment on above: CBC Start: 11-09-2024 ambulatory [facility] Start: 11-08-2024 End: 01-08-2025 Follow-up encounter Sander Pollack RN [facility] Comment on above: Comprehensive metabo lic panel, Magnesium Start: 11-08-2024 ambulatory [facility] Start: 11-08-2024 End: 11-08-2024 Office outpatient visit 15 minutes Radha Mart FINISHING DEPARTMENT SUPERVISOR-DOOR INSTALLER Work Phone: [facility] Comment on above: Paroxysmal atrial fi brillation (CMS-HCC) (Primary Dx); Primary hypertension; Palpitations Start: 11-08-2024 End: 11-16-2024 ambulatory RADHA [facility] Comment on above: Med Refill Start: 11-01-2024 End: 11-03-2024 Refill [facility] FINISHING DEPARTMENT SUPERVISOR-DOOR INSTALLER Work Phone: [facility] Comment on above: Med Refill Start: 10-31-2024 End: 10-31-2024 ambulatory Daisy Liz MD Facility:[facility] Start: 10-26-2024 End: 10-26-2024 ambulatory Alfreda Miller Facility:[facility] Start: 10-26-2024 End: 10-26-2024 Patient encounter procedure Maria E Osman [facility] Start: 09-19-2024 End: 09-19-2024 ambulatory Alfreda Miller Facility:[facility] Start: 09-19-2024 End: 09-19-2024 Patient encounter procedure Alfreda Miller [facility] Start: 09-12-2024 End: 09-12-2024 ambulatory Jean Pierre MARTE Facility:[facility] Start: 09-12-2024 End: 09-12-2024 ambulatory Alfreda Miller Facility:[facility] Start: 09-12-2024 End: 09-12-2024 Patient encounter procedure Alfreda Miller [facility] Start: 08-22-2024 End: 08-22-2024 ambulatory Daisy Liz MD Facility:[facility] Start: 08-07-2024 End: 08-10-2024 Refill Vinicio Causey PA-C Work Phone: [facility] Comment on above: Med Refill Start: 08-03-2024 End: 08-04-2024 Refill Rosangela Montague FINISHING DEPARTMENT SUPERVISOR-DOOR INSTALLER Work Phone: [facility] Comment on above: Med Refill Start: 07-27-2024 End: 07-28-2024 Refill Sander Pollack RN [facility] Comment on above: Med Refill Start: 07-20-2024 End: 07-27-2024 Refill Miko Vasquez FINISHING DEPARTMENT SUPERVISOR-DOOR INSTALLER Work Phone: [facility] Comment on above: Med Refill Start: 07-20-2024 ambulatory Alfreda Miller Facility:[facility] Start: 07-14-2024 End: 07-14-2024 Postop follow up visit related to original px Paula Fitzpatrick FINISHING DEPARTMENT SUPERVISOR-DOOR INSTALLER Work Phone: [facility] Comment on above: Hx of total hip arth roplasty, right (Primary Dx) Start: 07-14-2024 End: 07-14-2024 Subsequent hospital visit by physician Paula Fitzpatrick FINISHING DEPARTMENT SUPERVISOR-DOOR INSTALLER Work Phone: [facility] Start: 07-14-2024 ambulatory [facility]OT [facility] Start: 06-30-2024 End: 07-06-2024 Refill Michael Castanon FINISHING DEPARTMENT SUPERVISOR-DOOR INSTALLER Work Phone: [facility] Comment on above: Med Refill Start: 06-22-2024 End: 07-26-2024 Pre-admission assessment Alfreda Miller [facility] Start: 06-22-2024 End: 06-22-2024 ambulatory Maria E Osman Facility:[facility] Start: 06-22-2024 End: 06-22-2024 Lab Drop off Maria E Osman [facility] Start: 06-22-2024 End: 06-22-2024 ambulatory Maria E Osman Facility:[facility] Start: 06-22-2024 End: 06-22-2024 Patient encounter procedure Maria E Osman [facility] Start: 06-21-2024 End: 06-21-2024 ambulatory [facility] Work Phone: Start: 06-21-2024 End: 06-21-2024 Patient encounter procedure [facility] Work Phone: Start: 05-11-2024 Non-patient / Non-visit [facility] Work Phone: Start: 05-09-2024 End: 05-09-2024 ambulatory [facility] Work Phone: Start: 05-09-2024 End: 05-09-2024 Patient encounter procedure [facility] Work Phone: Start: 04-30-2024 End: 04-30-2024 Patient encounter procedure [facility] Work Phone: Start: 04-04-2024 End: 04-04-2024 ambulatory Daisy Liz MD Facility:[facility] Start: 02-01-2024 End: 02-01-2024 ambulatory [facility] Work Phone: Start: 02-01-2024 End: 02-01-2024 Patient encounter procedure [facility] Work Phone: Start: 01-02-2024 End: 01-05-2024 Refill Rosangela Montague FINISHING DEPARTMENT SUPERVISOR-DOOR INSTALLER Work Phone: [facility] Comment on above: Med Refill Start: 11-26-2023 End: 11-26-2023 Subsequent hospital visit by physician Miko Ohara MD Work Phone: [facility] Start: 11-26-2023 ambulatory MIKO OHARA [facility] Start: 11-26-2023 End: 11-26-2023 Office outpatient visit 15 minutes Miko Ohara MD Work Phone: [facility] Comment on above: Hx of total hip arth roplasty, right (Primary Dx) Paroxysmal atrial fi brillation (CMS-HCC) (Primary Dx); Unstable angina (CMS-HCC); SOB (shortness of breath) Start: 11-25-2023 End: 11-25-2023 Telephone encounter [facility] Start: 10-28-2023 End: 10-28-2023 ambulatory [facility] Work Phone: Start: 10-28-2023 End: 10-28-2023 Patient encounter procedure [facility] Work Phone: Start: 10-19-2023 End: 10-26-2023 Refill Mike Craft MD Work Phone: [facility] Comment on above: Med Refill Start: 09-17-2023 Telephone encounter Matt Duron Hematology/Oncology Comment on above: Yearly Exam With Shane rodriguez Start: 08-20-2023 End: 08-20-2023 Subsequent hospital visit by physician Divine Dougherty Work Phone: [facility] Start: 08-20-2023 ambulatory DIVINE DOUGHERTY [facility] Start: 08-20-2023 End: 08-20-2023 Postop follow up visit related to original px Divine Dougherty Work Phone: [facility] Comment on above: Right hip pain (Prim hayden Dx) Start: 08-20-2023 ambulatory ELLIOT STARKS [facility] Start: 08-10-2023 End: 08-13-2023 Refill Divine Kaur FINISHING DEPARTMENT SUPERVISOR-DOOR INSTALLER Work Phone: [facility] Comment on above: Med Refill Start: 07-23-2023 End: 07-23-2023 Postop follow up visit related to original px Divine Dougherty Work Phone: [facility] Comment on above: Tear of gluteus mini mus tendon, right, initial encounter (Primary Dx) Start: 07-23-2023 End: 07-23-2023 Subsequent hospital visit by physician Divine Dougherty Work Phone: [facility] Start: 07-23-2023 ambulatory DIVINE DOUGHERTY [facility] Start: 07-17-2023 Refill Mike galloway MD Work Phone: [facility] Comment on above: Med Refill Start: 07-15-2023 Telephone encounter Ashia Goncalves RN [facility] Start: 07-07-2023 End: 2023 Evaluation and management of inpatient Miko Ohara MD Work Phone: [facility] Comment on above: Status post revision of total hip Start: 07-07-2023 End: 2023 Patient encounter status Miko Ohara MD Work Phone: [facility] Start: 07-01-2023 Patient encounter status [facility] Start: 07-01-2023 Preprocedural examination done Elliot Starks MD Work Phone: [facility] Start: 06-19-2023 Telephone encounter Jacqueline Sparrow RN [facility] Comment on above: Pre op clearance Start: 06-18-2023 End: 06-18-2023 Office outpatient visit 40 minutes Miko Ohara MD Work Phone: [facility] Comment on above: Right hip pain (Prim hayden Dx) Start: 06-02-2023 End: 06-02-2023 Office outpatient visit 25 minutes Mundo Diaz MD Work Phone: [facility] Comment on above: Paroxysmal atrial fi brillation ([facility]) (Primary Dx); Primary hypertension; Chronic coronary artery disease Start: 05-14-2023 End: 05-14-2023 Office outpatient new 30 minutes Miko Ohara MD Work Phone: [facility] Comment on above: Pain in prosthetic j oint, initial encounter (Primary Dx); Primary osteoarthritis of right hip Start: 05-14-2023 End: 05-14-2023 Subsequent hospital visit by physician Miko Ohara MD Work Phone: [facility] Start: 03-30-2023 (Televisit) Televisit Elliot Dela Cruz [facility] Start: 03-30-2023 End: 03-30-2023 ambulatory Elliot Starks Other [employer] Other Start: 02-11-2023 End: 02-11-2023 Patient encounter procedure Alfreda Miller [facility] Start: 12-29-2022 End: 11-08-2024 Preoperative state Mundo Diaz MD Work Phone[facility] [employer] [facility] Start: 11-17-2022 End: 11-17-2022 ambulatory Elliot Starks Other [employer] Other Start: 11-17-2022 Telephone encounter Elliot Starks [facility] Start: 10-30-2022 End: 10-30-2022 ambulatory Elliot Starks Other [employer] Other Start: 10-30-2022 Office outpatient vi sit 15 minutes Elliot Starks [facility] Start: 10-29-2022 End: 10-29-2022 ambulatory Elliot Starks Other [employer] Other Start: 10-29-2022 Telephone encounter Elliot Starks [facility] Start: 10-27-2022 Nursing evaluation o f patient and report Elliot Starks [facility] Start: 10-27-2022 End: 10-27-2022 ambulatory Elliot Starks Other [employer] Other Start: 10-27-2022 End: 10-27-2022 Departed Referred MD Elliot Starks Work Phone: [facility] Work Phone: Start: 09-11-2022 Telephone encounter Matt Duron Hematology/Oncology Comment on above: Orders Start: 08-11-2022 End: 08-11-2022 ambulatory Elliot Starks Other [employer] Other Start: 08-11-2022 Nursing evaluation o f patient and report Elliot Starks [facility] Start: 07-17-2022 (Televisit) Televisit Elliot Dela Cruz [facility] Start: 07-17-2022 End: 07-17-2022 ambulatory Elliot Starks Other [employer] Other Start: 06-23-2022 End: 06-23-2022 ambulatory Elliot Starks Other [employer] Other Start: 06-23-2022 Nursing evaluation o f patient and report Elliot Starks [facility] Start: 06-09-2022 End: 06-09-[address] ELLIOT STARKS Facility: Start: 06-06-2022 End: 06-06-2022 ambulatory Elliot Starks Other [employer] Other Start: 06-06-2022 Telephone encounter Elliot Starks [facility] Start: 06-04-2022 End: 06-04-2022 ambulatory Elliot Starks Other [employer] Other Start: 06-04-2022 Office outpatient vi sit 25 minutes Elliot Starks [facility] Start: 05-21-2022 End: 05-21-2022 ambulatory Elliot Starks Other [employer] Other Start: 05-21-2022 Telephone encounter Elliot Starks 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 Work Phone: Start: 11-08-2024 Follow-up visit Follow-up RADHA MART Start: 2023 Basic metabolic pane l calcium total Chance Mahoney MD Work Phone: Start: 2023 Complete blood count with white cell differential, automated Paula Fitzpatrick FINISHING DEPARTMENT SUPERVISOR-DOOR INSTALLER Work Phone: Start: 07-07-2023 Cultyp nuc acid amp prb cult/isolate ea orgnism Chance Mahoney MD Work Phone: Start: 07-07-2023 Radiologic examinati on pelvis 1/2 views Paula Fitzpatrick FINISHING DEPARTMENT SUPERVISOR-DOOR INSTALLER Work Phone: Start: 07-07-2023 Cell count miscellan [...] Elliot Starks Other Total abdominal hysterectomy Alfreda Mliler Plan of Treatment Date Care Activity Detail Author Start: 11-08-2025 Tobacco Screening Tobacco Screening [facility] Start: 02-03-2025 [facility] Start: 01-02-2025 COVID-19 Vaccine ( season) COVID-19 Vaccine ( season) [facility] Start: 01-02-2025 Influenza vaccination [facility] Start: 12-27-2024 End: 12-27-2024 Patient encounter procedure 12/27/2024 10:00 AM EDT Office Visit [facility] [address] [place] [phone] Radha Espinal MD [address] [place] [address] Arrived [facility] Comment on above: Arrived Start: 11-25-2024 Adult BMI Screening Adult BMI Screen ing [facility] Start: 11-25-2024 Tobacco Screening Tobacco Screening [facility] Start: 11-08-2024 End: 11-08-2024 Patient encounter procedure 11/08/2024 9:00 AM EDT Office Visit [facility] [address] [place] [address] Radha Mart, FINISHING DEPARTMENT SUPERVISOR-DOOR INSTALLER [address] [place] [address] [facility] Start: 09-29-2024 Adult BMI Screening Adult BMI Screen ing [facility] Start: 09-29-2024 Screening for malign ant neoplasm of breast MAMMOGRAM SCREENING [facility] Start: 08-11-2024 Adult BMI Screening Adult BMI Screen ing [facility] Start: 08-11-2024 End: 08-10-2025 CBC panel - Blood by Automated count CBC Lab Routine Paroxysmal atrial fibrillation ([facility]) Benign hypertension Expected: 08/11/2024 (Approximate), Expires: 08/10/2025 [facility] Comment on above: Expected: 08/11/2024 (Approximate), Expires: 08/10/2025 Start: 08-11-2024 End: 08-10-2025 Comprehensive metabolic 2000 panel - Serum or Plasma CMP Lab Routine Paroxysmal atrial fibrillation ([facility]) Benign hypertension Expected: 08/11/2024 (Approximate), Expires: 08/10/2025 [employer] Work Phone: Comment on above: Expected: 08/11/2024 (Approximate), Expires: 08/10/2025 Start: 08-11-2024 End: 08-10-2025 Magnesium [Mass/volume] in Serum or Plasma Magnesium Lab Routine Paroxysmal atrial fibrillation ([facility]) Benign hypertension Expected: 08/11/2024 (Approximate), Expires: 08/10/2025 [employer] Comment on above: Expected: 08/11/2024 (Approximate), Expires: 08/10/2025 Start: 08-11-2024 Tobacco Screening Tobacco Screening [facility] [employer] [facility] Start: 08-08-2024 COVID-19 Vaccine ( season) COVID-19 Vaccine ( season) [facility] [employer] Start: 07-14-2024 Tobacco Screening Tobacco Screening [facility] [employer] Start: 07-14-2024 End: 07-14-2024 Patient encounter procedure 07/14/2024 11:20 AM EDT Office Visit [facility] [address] [place] [id number] Miko Ohara MD [address] [place] [address] [facility] Start: 07-07-2024 Potassium [Moles/vol ume] in Serum or Plasma POTASSIUM [facility] Start: 06-02-2024 Adult BMI Screening Adult BMI Screen ing [facility] [employer] [facility] Start: 06-02-2024 Tobacco Screening Tobacco Screening [facility] Start: 02-16-2024 End: 02-16-2024 Patient encounter procedure 02/16/2024 11:00 AM EDT Office Visit [facility] [address] [place] [phone] Sheridan Kaye MD [address] [place] [address] [facility] Start: 01-03-2024 COVID-19 Vaccine ( season) COVID-19 Vaccine () [facility] Start: 01-03-2024 COVID-19 Vaccine () COVID-19 Vaccine () [facility] Start: 01-03-2024 Influenza vaccination [facility] Start: 11-26-2023 End: 11-26-2023 Patient encounter procedure [facility] Start: 10-09-2023 DIABETES SCREEN DIABETES SCREEN [facility] Start: 10-09-2023 Diabetes Screening Diabetes Screenin g [facility] Start: 08-20-2023 End: 08-20-2023 Patient encounter procedure 08/20/2023 2:30 PM EDT Office Visit [facility] [address] [facility] [place] [address] Divine Dougherty [address] [place] [address] [facility] Start: 08-12-2023 End: 08-12-2023 Patient encounter procedure 08/12/2023 8:00 AM EDT Office Visit [facility] [address] [place] [phone] Miko Vasquez APRN-AUSTEN [address] [place] [address] [facility] Start: 07-23-2023 End: 07-23-2023 Patient encounter procedure 07/23/2023 2:30 PM EDT Office Visit [facility] [address] [place] [address] Divine Dougherty [address] [place] [address] [facility] Start: 07-07-2023 End: 07-07-2023 Evaluation and management of inpatient [facility] Comment on above: Tear of rotator [...] 06/25/2023 10:00 AM EST Pre-Operative Nurse Assessment [facility] Pre Admission [address] [place] [phone] Pre-op testing (Primary Dx); Essential (primary) hypertension; Abnormal finding of blood chemistry, unspecified; Abnormal coagulation profile [facility] Comment on above: Pre-op testing (Prim hayden Dx); Essential (primary) hypertension; Abnormal finding of blood chemistry, unspecified; Abnormal coagulation profile Start: 06-13-2023 COVID-19 Vaccine ( season) COVID-19 Vaccine ( season) [facility] Start: 05-28-2023 End: 05-28-2023 Patient encounter procedure 05/28/2023 11:00 AM EST Office Visit [facility] [address] [place] [address] Peter Gardiner DO [address] [place] [address] [facility] Start: 05-14-2023 End: 05-14-2024 MR Hip - right WO contrast MRI HIP RIGHT WITHOUT CONTRAST Imaging Routine Pain in prosthetic joint, initial encounter Expected: 05/14/2023, Expires: 05/14/2024 [facility] Comment on above: Expected: 05/14/2023 , Expires: 05/14/2024 Start: 05-04-2023 Advance Directive Discussion Advance Directive Discussion [facility] Start: 05-04-2023 Behavioral Health Screening Behavioral Health Screening [facility] Start: 01-02-2023 Covid-19 Vaccine ( season) Covid-19 Vaccine () [facility] Start: 01-02-2023 COVID-19 VACCINE () COVID-19 VACCINE () [facility] Start: 01-02-2023 Influenza vaccination INFLUENZA (Sea son Ended) [facility] Start: 10-27-2022 Bacteria identified in Urine by Culture [facility] Start: 05-04-2022 ADVANCE DIRECTIVE DISCUSSION ADVANCE DIRECTIVE DISCUSSION [facility] Start: 05-04-2022 DEPRESSION ASSESSMENT DEPRESSION ASS ESSMENT [facility] Start: 04-08-2022 Screening for malign ant neoplasm of colon Colonoscopy [facility] Start: 01-02-2022 Influenza vaccination INFLUENZA (Sea son Ended) [facility] Start: 10-07-2021 End: 12-07-2021 Cancer [...] , Expires: 12/07/2021 Start: 09-25-2021 Mammography MAMMOGRAM [facility] Start: 05-04-2021 ADVANCE DIRECTIVE DISCUSSION ADVANCE DIRECTIVE DISCUSSION [facility] Start: 11-17-2020 COVID-19 VACCINE (3 - Booster for Pfizer series) COVID-19 VACCINE (3 - Booster for Pfizer series) [facility] Start: 10-06-2020 Adult depression screening assessment DEPRESSION SCREENING [facility] Start: 08-15-2020 COVID-19 VACCINE (3 - Booster for Pfizer series) COVID-19 VACCINE (3 - Booster for Pfizer series) [facility] Start: 01-05-2019 Pneumococcal Vaccine : 65+ (2 of 2 - PCV) Pneumococcal Vaccine: 65+ (2 of 2 - PCV) [facility] Start: 01-05-2019 PNEUMOCOCCAL: 65+ (2 - PCV) PNEUMOCOCCAL: 65+ (2 - PCV) [facility] Start: 07-07-2012 BONE DENSITY BONE DENSITY [facility] Start: 07-07-2012 Fall Risk Screening Fall Risk Screen ing [facility] Start: 07-07-2012 Screening for osteoporosis Bone Density Screening [facility] Start: 2007 RSV Vaccine (1 - 1-d ose 60+ series) RSV Vaccine (1 - 1-dose 60+ series) [facility] Start: 07-07-1997 Administration of varicella zoster vaccine Zoster (Shingles) Vaccine (1 of 2) [facility] Start: 07-07-1997 SHINGRIX VACCINE (1 of 2) SHINGRIX VACCINE (1 of 2) [facility] Start: 07-07-1997 Zoster vaccine hzv l david for subcutaneous use ZOSTER (SHINGLES) VACCINE (1 of 2) [facility] Start: 07-07-1992 COLOGUARD (FIT-DNA) COLOGUARD (FIT-D NA) [facility] Start: 07-07-1992 Colonoscopy COLONOSCOPY [facility] Start: 07-07-1992 COLORECTAL CANCER SCREENING COLORECTAL CANCER SCREENING [facility] Start: 07-07-[address] COLONOGRAPHY [facility] Start: 07-07-1992 FECAL OCCULT BLOOD FECAL OCCULT BLOO D [facility] Start: 07-07-1992 LIPID SCREEN LIPID SCREEN [facility] Start: 07-07-1992 Screening for malign ant neoplasm of colon COLORECTAL CANCER SCREENING DISCUSSION [facility] Start: 07-07-1992 SIGMOIDOSCOPY SIGMOIDOSCOPY [facility] Start: 1987 Lipid panel LIPID SCREENING [facility] Start: 1987 Screening for malign ant neoplasm of breast MAMMOGRAM SCREENING DISCUSSION [facility] Start: 07-07-1968 Screening for malign ant neoplasm of cervix CERVICAL CANCER SCREENING DISCUSSION [facility] Start: 07-07-1966 DTaP,Tdap and Td Vaccines (1 - Tdap) DTaP,Tdap and Td Vaccines (1 - Tdap) [facility] Start: 07-07-1966 Third diphtheria, tetanus and acellular pertussis (DTaP) vaccination TDAP (ADULT) [facility] Start: 07-07-1966 Urine microalbumin profile [facility] Start: 07-07-1965 Adult BMI Follow Up Plan Adult BMI F ollow Up Plan [facility] Start: 07-07-1965 HEPATITIS C SCREENING HEPATITIS C SC REENING [facility] Start: 1959 Depression Screening Depression Scre ening [facility] Start: 07-07-1953 PNEUMOCOCCAL: 65+ (1 - PCV) PNEUMOCOCCAL: 65+ (1 - PCV) [facility] Start: 1947 Hepatitis C screening HEPATITI S C VIRUS SCREENING [facility] Start: 1947 Medicare Annual Well ness Visit Medicare Annual Wellness Visit [facility] Start: 1947 Potassium [Moles/vol ume] in Serum or Plasma POTASSIUM [facility] Start: 1947 Screening for osteoporosis DEXA SCAN DISCUSSION [facility] [employer] [facility] Start: 1947 Tetanus vaccination TETANUS [facility] ANAEROBE CULTURE [facility] Comment on above: Release Upon Orderin g for 1 Occurrences starting 07/07/2023 Bacterial culture an d sensitivity CULTURE WOUND Microbiology Routine 07/07/2023 2:27 PM EST [employer] [facility] BODY FLUID CELL COUNT BODY FLUID CELL COUNT Fluids Routine Tear of rotator cuff of right hip, initial encounter 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, initial encounter Release Upon Ordering for 1 Occurrences starting 07/07/2023 [employer] Comment on above: Release Upon Orderin g for 1 Occurrences starting 07/07/2023 End: 08-04-2025 Comprehensive metabolic 2000 panel - Serum or Plasma Comprehensive metabolic panel Lab Routine Primary hypertension 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 ([facility]) 1 Occurrences starting 08/04/2024 until 08/04/2025 [employer] Work Phone: Comment on above: 1 Occurrences starti ng 08/04/2024 until 08/04/2025 End: 10-16-2024 DBT Breast - bilateral screening SHANE SCREENING [facility] Routine Encounter for screening mammogram for malignant neoplasm of breast 1 Occurrences starting 09/17/2023 until 10/16/2024 [facility] Work Phone: Comment on above: 1 Occurrences starti ng 09/17/2023 until 10/16/2024 End: 07-07-2023 Fungus identified in Unspecified specimen by Culture [facility] Comment on above: Release Upon Orderin g for 1 Occurrences starting 07/07/2023 One Time for 1 Occur rences starting 07/07/2023 until 07/07/2023 End: 08-04-2025 Magnesium [Mass/volume] in Serum or Plasma Magnesium Lab Routine Primary hypertension 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 [employer] Work Phone: XR Pelvis and Hip - right Views XR HIP WITH PELVIS RIGHT Imaging Routine Tear of gluteus minimus tendon, right, initial encounter 07/23/2023 2:22 PM EDT [employer] [facility] XR Pelvis and Hip - right Views XR HIP WITH PELVIS RIGHT Imaging Routine Right hip pain 08/20/2023 3:17 PM EDT [employer] XR Pelvis and Hip - right Views XR HIP WITH PELVIS RIGHT Imaging Routine Hx of total hip arthroplasty, right 11/26/2023 1:53 PM EDT [facility] XR Pelvis and Hip - right Views XR HIP WITH PELVIS RIGHT Imaging Routine Hx of total hip arthroplasty, right 07/14/2024 1:07 PM EDT [facility] Immunizations Immunization Date Immunization Notes Care Provider Pablo wheat 02-08-2024 influenza virus vaccine, unspecified formulation Maria E Osman [facility] 02-10-2023 influenza virus vaccine, unspecified formulation Alfreda Miller [facility] 02-01-2022 influenza virus vaccine, unspecified formulation Alfreda Miller [facility] 08-13-2021 SARS-CoV-2 mRNA ([id number] se) vaccine Alfreda Lue [facility] 01-29-2021 SARS-CoV-2 (COVID-19 ) mRNA [id number] vax Alfreda Lue [facility] Comment on above: Result Comment: 2022: [id number] 06-20-2020 COVID-19 vaccine, ag e 12+ yr (PFIZER-BIONTECH - PURPLE TOP) Mikaela Thompson RN Work Phone: [facility] 05-28-2020 SARS-CoV-2 (COVID-19 ) mRNA BNT-162b2 vax Alfreda Lue [facility] 05-18-2020 COVID-19 vaccine, ag e 12+ yr (PFIZER-BIONTECH - PURPLE TOP) Mikaela Thompson RN Work Phone: [facility] 01-27-2020 influenza virus vaccine, split virus (incl. purified surface antigen) Elliot Starks Other [employer] Other 01-27-2020 influenza virus vaccine, unspecified formulation Alfreda Lue [facility] 01-20-2019 influenza virus vaccine, unspecified formulation Alfreda Lue [facility] 01-20-2019 influenza, high dose seasonal, preservative-free Mikaela Thompson RN Work Phone: [facility] 03-09-2018 influenza virus vaccine, unspecified formulation Alfreda Lue [facility] 01-05-2018 influenza virus vaccine, split virus (incl. purified surface antigen) Elliot Starks Other [employer] Other 01-05-2018 influenza virus vaccine, unspecified formulation Alfreda Lue [facility] 01-05-2018 influenza, high dose seasonal, preservative-free Mikaela Thompson RN Work Phone: [facility] 01-05-2018 pneumococcal polysaccharide vaccine, 23 valent Mikaela Thompson RN Work Phone: [facility] 02-25-2017 influenza virus vaccine, unspecified formulation Alfreda Lue [facility] 02-17-2017 pneumococcal polysaccharide vaccine, 23 valent Alfreda Lue [facility] 02-05-2017 influenza virus vaccine, split virus (incl. purified surface antigen) Elliot Starks Other [employer] Other 02-05-2017 influenza virus vaccine, unspecified formulation Alfreda Lue [facility] 02-05-2017 pneumococcal conjuga te vaccine, 13 valent Alfreda Lue [facility] 02-01-2002 pneumococcal polysaccharide vaccine, 23 valent Elliot Starks Other [facility] Payers Date Payer Category Payer Self-pay 2023 Private Health Insurance [id number] 2023 Medicare (Managed Care) MEDICARE AETNA PPO [id number] 2021 Medicaid [id number]. [id number] 2021 Medicare HMO AETNA MEDICARE [id number] 2014 Medicare AETNA MEDICARE A ETNA MEDICARE O [id number] 2014-Present [phone] [address] [place] [address] [facility] [id number]. [id number] 2014 Medicare [id number]. 1.13.159.2. [id number] 1959 Medicare [id number] 1945 Unknown [id number] 2.16.840.1.486086.3.579.2. 593 1947 Unknown [id number] 2.16.840.1.746313.3.579.2. 593 1947 Unknown [id number] 2.16.840.1.910618.3.579.2. 593 1947 Unknown [id number] 2.16.840.1.283956.3.579.2. 718 1947 Unknown [id number] 2.16.840.1.160513.3.579.2. 727 1947 Unknown [id number] 2.16.840.1.855354.3.579.2. 727 1947 Unknown [id number] 2.16.840.1.054010.3.579.2. 727 1947 Unknown [id number] 2.16.840.1.099964.3.579.2. 983 1947 Unknown [id number] 2.16.840.1.913499.3.579.2. 983 1947 Unknown [id number] 2.840.1.917507.3.579.2. 983 1947 Unknown [id number] 2.16.840.1.675438.3.579.2. 983 1947 Unknown [id number] 2.16.840.1.235266.3.579.2. 983 1947 Unknown [id number] 2.16.840.1.341799.3.579.2. 983 1947 Unknown [id number] 2.16840.1.347238.3.579.2. 983 1947 Unknown [id number] 2.16.840.1.581692.3.579.2. 983 1947 Unknown [id number] 2.16.840.1.696455.3.579.2. 727 1947 Unknown [id number] 2.16.840.1.813745.3.579.2. 727 1947 Unknown [id number] 2.16.840.1.488326.3.579.2. 1286 1947 Unknown [id number] 2.16.840.1.948532.3.579.2. 1286 1947 Unknown [id number] 2.16.840.1.233079.3.579.2. 1286 1947 Unknown [id number] 2.16.840.1.789300.3.579.2. 196 1947 Unknown [id number] 2.16.840.1.527274.3.579.2. 196 1947 Unknown [id number] 2.16.840.1.656436.3.579.2. 196 1947 Unknown [id number] 2.16.840.1.363983.3.579.2. 196 1947 Unknown [id number] 2.16840.1.370971.3.579.2. 1259 1947 Unknown [id number] 2.16840.1.303948.3.579.2. 727 1947 Unknown [id number] 2.16840.1.857398.3.579.2. 727 1947 Unknown [id number] 2.16.840.1.674689.3.579.2. 727 1947 Unknown [id number] 2.16.840.1.914045.3.579.2. 727 1947 Unknown [id number] 2.16840.1.726187.3.579.2. 727 Private Health Insurance Aetna [facility] [id number] Unknown Unknown [id number] 2.16840.1.835499.3.579.2. 531 Social History Date Type Detail Facility Start: 12-03-2015 End: 04-30-2024 Tobacco smoking status NHIS Ex-smoker [facility] End: 12-05-1990 History of tobacco use Current smoker [facility] Start: 12-03-2015 End: 05-15-2020 Cigarettes smoked current (pack per day) - Reported 1 [facility] Start: 12-03-2015 End: 11-26-2023 Tobacco use and exposure Smokeless tobacco non-user [facility] Start: 10-08-2020 End: 11-08-2024 Alcohol intake Current drinker of alcohol (finding) [facility] Start: 1945 Sex Assigned At Not on file [facility] Start: 05-15-2020 End: 05-14-2023 Sex Assigned At [facility] End: 12-05-1990 History of tobacco use Cigarette Smoker [facility] Start: 1945 Sex Assigned At Female F [facility] Tobacco smoking status Never [facility] Start: 05-14-2023 Tobacco smoking stat us NHIS Never smoked tobacco [facility] Has the [employer], oil, or water company threatened to shut off services in your home in past 12Mo No [facility] [employer] (I/We) worried malathi er (my/our) food would run out before (I/we) got money to buy more. Never true [facility] [employer] [facility] Start: 03-19-2017 End: 06-19-2023 Alcohol Comment social [facility] Start: 12-07-2014 End: 05-09-2024 Sex Female (finding) [facility] Start: 03-31-2022 Tobacco Comment quit in [address] [facility] Start: 05-09-2018 Gender identity Identifies as female gender (finding) [facility] Sexual Orientation [facility] Start: 09-26-2022 Alcohol Comment Alcohol: 1-2 d rinks occasionally. Caffeine: soda [facility] Medical Equipment Procedure Code Equipment Code Equipment Origin al Text Equipment Identifier Dates Anchors, 5.5 Non Punching - [id number] Start: 07-07-2023 Anchors, 5.5 Non Punching - [id number] Start: 07-07-2023 Functional Status Date Assessment Result Facility 09-19-2024 Functional Status N/A [facility] 06-22-2024 Functional Status N/A [facility] 07-07-2023 Are you deaf, or do [...] No 07/07/2023 4:30 PM Marcella Muñoz RN [facility] 07-07-2023 Do you have difficul ty dressing or bathing No 07/07/2023 4:30 PM Marcella Muñoz RN [facility] 07-07-2023 Because of a physica l, mental, or emotional condition, do you have difficulty doing errands alone such as visiting a physician's office or shopping No 07/07/2023 4:30 PM Marcella Muñoz RN [facility] 02-11-2023 Functional Status N/A [facility] Mental Status Date Assessment Result Facility 07-07-2023 Because of a physica l, mental, or emotional condition, do you have serious difficulty concentrating, remembering, or making decisions No 07/07/2023 4:30 PM Marcella Muñoz RN [facility] Clinical Notes 09-26-2021 to 01-31-2025 Telephone Encounter - Debbie Kerr RN - 01/31/2025 12:23 AM EDTTelephone Encounter - Debbie Kerr RN - 01/31/2025 12:23 AM Marques Espinal MD - 12/27/2024 10:00 AM EDT Note Date & Type Note Facility 01-31-2025 Miscellaneous Notes OV 11/08/24 CMP 11/08/24 Mag 11/08/24 documented in this encounter [facility] 01-31-2025 Telephone encounter Note OV 11/08/24 CMP 11/08/24 Mag 11/08/24 [facility] [employer] [facility] 01-25-2025 Hospital Discharg e instructions Patient Education [...] (electrical nerve stimulation). ?For women, using a certified medical coding specialist to prevent urine leaks. This is a [...] right after experiencing incontinence. General instructions Take fqrn-wrh-fjcuwic and prescription medicines only as told by [...] important. Where to find more information National [employer] [place] of Diabetes and Digestive and Kidney Diseases: www.niddk.nih.gov [employer]: www.urologyhealth.org Contact a health care [...] provider. Document Revised: 11/23/2020 Document Reviewed: 11/23/2020 [employer] Patient Education 2023 [employer] 01/25/2025 11:48:59 Overactive Bladder, Adult Overactive Bladder, [...] your health care provider. General instructions Take uatm-kxe-qfipxlf and prescription medicines only as told by [...] provider. Document Revised: 01/07/2021 Document Reviewed: 01/07/2021 Blockchain Patient Education 2023 [employer]. Follow Up Care 10/26/2024 08:31:24 With:Maria E Osman PA-C, CARLYNL Address: When:Within 2 Month(s) Comments:w/ FLORES [facility] 01-25-2025 Note Patient Education Obstetrics and [...] health care provider. General instructions ??? Take qcds-nag-iijebjp and prescription medicines only as told by [...] drink, and whe (more content not included)... [facility] 01-17-2025 Miscellaneous Notes Last OV 11/08/24 EKG 11/08/24 CMP/Mg 11/08/24 documented in this encounter [facility] 01-17-2025 Telephone encounter Note Last OV 11/08/24 EKG 11/08/24 CMP/Mg 11/08/24 [facility] 12-27-2024 History of Presen t illness [...] Right Popliteal Fossa, Right Thigh - Anterior [place] and brown stuck on verrucous scaly papule [...] limited to risks of scarring, darker or obgyn specialist pigmentary changes, recurrence, incomplete removal and infection. [...] pt schedule FBSE documented in this encounter [facility] 12-27-2024 Miscellaneous Notes Theresa: 11/08/2024 documented in this encounter [facility] 12-27-2024 Telephone encounter Note Theresa: 11/08/2024 [facility] 12-18-2024 Note HNO ID: [id number] Author: ELSY MEANS RT(R) Service: ? Author Type: Technologist Type: [...] PATIENT PRESENTS WITH AN IMPLANTABLE OR ATTACHED BRAKE RIDER: No RADIOLOGY DEPARTMENT: General X-ray: Exam(s) Completed: Chest X-Ray PERIPHERAL IV DATA: Not applicable SIGNED BY: Elsy Means, RT(R) December 18, 2024 8:31 PM [facility] 11-29-2024 Evaluation note Diagnosis Onset Date Resolution Dysuria acute November 29 8:53am CKD stage 3a, GFR 45-59 ml/min acute December 29 10:23am Hypokalemia acute December 29, 2024 10:23am [facility] Work Phone: 1(443) 798-122507-29-2025 Evaluation note* Diagnosis Onset Date Resolution Status Admit Date Dysuria acute November 29 8:53am CKD stage 3a, GFR 45-59 ml/min acute December 29, 2024 10:23am Dysuria acute December 29, 025 10:23am Exudative age-related macula r degeneration, bilateral, stage unspecified acute December 29 10:23am Hypokalemia acute December 29, 2024 10:23am Paroxysmal atrial fibrillation acute December 29, 2024 10:23am Syncopal episodes acute December 29, 2024 10:23am Hypokalemia acute February 03, 2025 8:17am Syncopal episodes acute February 03, 2025 8:17am [facility] Work Phone: 1(498) 971-146807-29-2025 Evaluation note* Diagnosis Onset Date Resolution Status Admit Date Dysuria acute November 29 8:53am CKD stage 3a, GFR 45-59 ml/min acute December 29, 2024 10:23am Dysuria acute December 29, 2 025 10:23am Exudative age-related macula r degeneration, bilateral, stage unspecified acute December 29 10:23am Hypokalemia acute December 29, 2024 10:23am Paroxysmal atrial fibrillation acute December 29, 2024 10:23am Syncopal episodes acute December 29, 2024 10:23am Essential hypertension acute 2024 8:17am Hypokalemia acute February 03, 2025 8:17am Insomnia acute February 03 2 025 8:17am Syncopal episodes acute February 03, 2025 8:17am [facility] Work Phone: 1(609) 397-151407-24-2025 Miscellaneous Notes* Telephone Encounter - Leslie Negron RN - 11/24/2024 12:24 AM EDT Ov-11/08/24 Cmp-11/08/24 [facility] Telephone encounter Note* Telephone Encounter - Leslie Negron RN - 11/24/2024 12:24 AM EDT Ov-11/08/24 Cmp-11/08/24 [facility]2025 History of Present illness Narrative* Radha Mart, FINISHING DEPARTMENT SUPERVISOR-DOOR INSTALLER - 11/08/2024 9:00 AM EDT Bettie Burns Date of visit: 11/08/2024 Date [...] tablet (20 mg total) before bedtime. vitamins A,C,J-kqjq-remlly (ICAPS AREDS) 4,296 mcg-226 mg-90 mg capsule [...] office. Past Medical History: Diagnosis Date A-fib ([facility]) hx of Allergic Allergic to certain medications Arrhythmia 12/2016 ATRIAL FIBRILLATION Arthritis Back pain Chronic Nerve ablation 07/12/19 Breast cancer ([facility]) 11/14/2015 LEFT Cataract 02/2019 Removed 03/2019 COVID-19 [...] 09/28/2018 Performed by Amber Quiñonez MD at [facility] (EP) APPENDECTOMY 1997 ARM SURGERY Both shoulders rotator cuff repair ARTHROSCOPY REPAIR ROTATOR CUFF SHOULDER Right 05/16/2020 Performed by Melchor Rivera DO at [facility] ARTHROSCOPY SHOULDER Right 05/16/2020 Performed by Melchor Rivera DO at [facility] BREAST BIOPSY Left 2016 2016 BREAST LUMPECTOMY Left 11/14/2015 WITH RADIATION BREAST SURGERY Left 2016 lumpectomy CATARACT EXTRACTION CHOLECYSTECTOMY 2000 COLONOSCOPY 2018 Will not need one again Coronary angiogram and left ventricular gram/pressure N/A 08/08/2021 Performed by Bertram Lal MD at [facility] CARDIAC CATH LABS EGD 2017 EYE [...] Needs: No Transportation Needs (07/07/2023) Received from [facility] PRAPARE - Transportation Lack of Transportation (Medical): No Lack of Transportation (Non-Medical): No Physical Activity: Not on file Stress: Not on file Social Connections: Not on file Interpersonal Safety: Not on file Housing Instability: Low Risk (07/07/2023) Received from [facility] Housing Stability Vital Sign Unable to [...] STARKS MD Referring Physician: Elliot Starks MD [address] [place] [address] MEDINA Landry 11/08/24 0926 [facility] Instructions* Patient Instructions* MEDINA Landry - 11/08/2024 9:00 AM EDT BP and HR are well controlled. Continue cardiac medications. Recommend follow up in one year. Please call the office if you develop new or worsening symptoms and we will see you sooner. [facility] Miscellaneous Notes* Telephone Encounter - Kadie Adler RN - 11/08/2024 12:18 AM EDT OV 11/08/24 CMP, CBC 11/08/24 [facility] Telephone encounter Note* Telephone Encounter - Kadie Adler RN - 11/08/2024 12:18 AM EDT OV 11/08/24 CMP, CBC 11/08/24 [facility]07-01-2025 Miscellaneous Notes* Telephone Encounter - Gabrielle Moffett RN - 11/01/2024 12:27 AM EDT Overdue labs. Pt has been notified. Ov scheduled 11/08 documented in this encounterGerman [facility] [id number] Telephone encounter Note* Telephone Encounter - Gabrielle Moffett RN - 11/01/2024 12:27 AM EDT Overdue labs. Pt has been notified. Ov scheduled 11/08 [facility] [employer] [id number] Evaluation + Plan noteExtracted from: Title:[facility]D Note Author:Alfreda Miller MD Date:09/19/24 Impression and Plan Assessment and Plan: Diagnosis: Vaginal atrophy (OGY49-ZA N95.2, Discharge, Medical), Recurrent UTI (QFD07-LI N39.0, Discharge, Medical), Mixed incontinence (GCD96-BD N39.46, Discharge, Medical). 79-year-old female with a [...] 08:00:00 AM Scheduled Provider:Maria E Osman PA-C Location:[facility] Appointment Type:URO Office Visit [facility] 05-19-2025 Hospital Discharge instructions Follow Up Care 09/19/2024 08:36:00 With:Maria E Osman PA-C, URL Address: When:Within 3 Month(s) Comments:w/ PVR [facility] 05-19-2025 Hospital Discharge instructions Patient Education [...] PVR With:Alfreda Miller Address:Unknown When: Unknown [facility] 05-19-2025 NoteHistory and Physical Patient: BETTIE BURNS [...] 1 month, then 2x a week afterwards, [facility]/pharmacy #[id number], 165, cm, 06/22/24 13:05:00 EST, Height/Length Dosing, 80.7, kg, 06/22/24 13:05:00 EST, Weight Dosing... Keflex 500 mg Cap: 500 mg = 1 cap(s), Oral, q12hr, X 7 day(s), # 14 cap(s), Refills(s) 0, Pharmacy:[facility]/pharmacy #[id number], 165, cm, 06/22/24 13:05:00 EST, [...] Vitamin OTC: [employer]ia Vitamin OTC Potassium Chloride (Nys-Iwyg-Yap 10) 10 mEq oral tablet, extended release: [...] list: All Problems Anticoagulated / SNOMED CT 296363750 / Confirmed Chronic atrial fibrillation / SNOMED CT 3576900046 / Confirmed Eczema / SNOMED CT 52272747 / Confirmed Former smoker / SNOMED CT 74358626 / Confirmed Frequent UTI / SNOMED CT 378177521 / Confirmed History of breast cancer / SNOMED CT 2594779627 / Confirmed History of malignant neoplasm of breast / SNOMED CT 5278283031 / Confirmed Hypertensive disorder / SNOMED CT 9394078409 / Confirmed Microscopic hematuria / SNOMED CT 841750616 / Confirmed Mixed incontinence / SNOMED CT 38434754 / Confirmed Rectocele / SNOMED CT 4802577527 / Confirmed Histories Past Medical History: No active or resolved past medical history items have been selected or recorded. Family History: Entire family history is negative. Procedure history: Cholecystectomy (85709383). Hip replacement (3430782605). Lumpectomy of left breast (4634843107). Rotator cuff (28072102). ROSA - Total abdominal hysterectomy (115239790). Appendectomy (963919181). Cataracts (4906594704). Cardiac ablation system (8197183774). Social History Social & Psychosocial Habits Tobacco [...] per clinic note, risks/benefits previously discussed and documentedThe Jewish HospitalComment on above:Result Comment: Electronically Signed By: Alfreda Miller MD\.br\Date and Time Signed: 09/19/24 08:[id number] NoteProgress Note-Physician Patient: BETTIE BURNS Age: 79 [...] 1 month, then 2x a week afterwards, [facility]/pharmacy #[id number], 165, cm, 06/22/24 13:05:00 EST, Height/Length Dosing, 80.7, kg, 06/22/24 13:05:00 EST, Weight Dosing... Keflex 500 mg Cap: 500 mg = 1 cap(s), Oral, q12hr, X 7 day(s), # 14 cap(s), Refills(s) 0, Pharmacy:[facility]/pharmacy #[id number], 165, cm, 06/22/24 13:05:00 EST, [...] Vitamin OTC: [employer]ia Vitamin OTC Potassium Chloride (Fly-Huyo-Pry 10) 10 mEq oral tablet, extended release: [...] Plan Assessment and Plan: Diagnosis: Vaginal atrophy (CWG89-BL N95.2, Discharge, Medical), Recurrent UTI(YVY05-GF N39.0, Discharge, Medical), Mixed incontinence (TCK06-MC N39.46, Discharge, Medical). 79-year-old female with a [...] up CT scan confirmed passage. Increase fluids recommendedThe Jewish HospitalComment on above:Result Comment: Electronically Signed By: Paul VILLEGAS, Alfreda Villavicencio.cassandra\Date and Time Signed: 09/19/24 08:[id number] Note Patient Education Cystoscopy with Botox injection [...] you have a fever over 100 degrees. ???[facility]04-02-2025 Miscellaneous Notes* Telephone Encounter - Leslie Negron RN - 08/03/2024 12:21 AM EDT Ov-11/26/23 Cmp and mg -07/15/23 New cmp and mg order placed and letter sent 08/04/24 documented in this encounterGen[facility]04-02-2025 Telephone encounter Note* Telephone Encounter - Leslie Negron RN - 08/03/2024 12:21 AM EDT Ov-11/26/23 Cmp and mg -07/15/23 New cmp and mg order placed and letter sent 08/04/24 [facility]03-26-2025 Miscellaneous Notes* Telephone Encounter - Sander Pollack RN - 07/27/2024 1:57 PM EDT P/c from pt requesting refills to [facility]. OV 11/26/23 07/14/24 MAG, CMP, CBC EKG 08/12/23 documented in this encounterCopley HospitalConcept [facility]03-26-2025 Telephone encounter Note* Telephone Encounter - Sander Pollack RN - 07/27/2024 1:57 PM EDT P/c from pt requesting refills to [facility]. OV 11/26/23 07/14/24 MAG, CMP, CBC EKG 08/12/23 [facility] [id number] History of Present illness Narrative* Svitlana Blake - 07/14/2024 2:00 PM EDT Ortho Nurse - Established Patient Intake Room#: 5 Date: 07/14/2024 1:15 PM Patient: Bettie Bunrs MR#: [id number] : 1945 Age: 79 y.o. 1yr R [...] LUMPECTOMY FOOT SURGERY HEART CATHETERIZATION no stents UT ENDOMETRIAL CRYOABLATION W/US & ENDOMETRIAL CR REMOVAL [...] x 1 month, then 2x/week for maintainence, [facility]/pharmacy #[id number], 165, cm, 02/11/23 10:41:00 EDT, [...] x 1 month, then 2x/week for maintainence, [facility]/pharmacy #[id number], 165, cm, 02/11/23 10:41:00 EDT, [...] 07/14/2024 1:15 PM Patient: Bettie Burns MR#: [id number] : 1945 Age: 79 y.o. 1yr R [...] Laterality: Right; Surgeon: Miko Ohara MD; Location: [facility] ONT OR REVISION ARTHROPLASTY HIP BOTH ACETABULAR & FEMORAL COMPONENTS Right 07/07/2023 Laterality: Right; Surgeon: Miko Ohara MD; Location: [facility] ONT OR HIP REPLACEMENT 2021 ABLATION NERVE RADIOFREQUENCY PULSED 09/2018 for a-fib with [facility] APPENDECTOMY BREAST LUMPECTOMY FOOT SURGERY HEART CATHETERIZATION no stents UT ENDOMETRIAL CRYOABLATION W/US & ENDOMETRIAL CR REMOVAL [...] x 1 month, then 2x/week for maintainence, [facility]/pharmacy #[id number], 165, cm, 02/11/23 10:41:00 EDT, [...] x 1 month, then 2x/week for maintainence, [facility]/pharmacy #[id number], 165, cm, 02/11/23 10:41:00 EDT, [...] oxycodone, penicillins, and tramadol. [facility]25 Miscellaneous Notes* Telephone Encounter - Mami Cifuentes RN - 06/30/2024 12:22 AM EST OV 11/26/2023 [facility] [id number] Telephone encounter Note* Telephone Encounter - Mami Cifuentes RN - 06/30/2024 12:22 AM EST OV 11/26/2023 [facility] [id number] Hospital Discharge instructions Patient Education 06/22/2024 15:04:23 [...] Follow these instructions at home: Medicines Take mmjf-slk-pzkbukz and prescription medicines only as told by [...] or the blood stops without treatment. Take zmyk-udn-chgbgyw and prescription medicines only as told by your health care provider. Drink enough fluid to keep your urine pale yellow. This information is not intended to replace advice given to you by your health care provider. Make sure you discuss any questions you have with your health care provider. Document Revised: 12/19/2020 Document Reviewed: 12/19/2020 [employer] Patient Education 2023 [employer]. 06/22/2024 15:04:17 Overactive Bladder, Adult Overactive Bladder, [...] your health care provider. General instructions Take mnir-fcf-fzjtbcy and prescription medicines only as told by [...] provider. Document Revised: 01/07/2021 Document Reviewed: 01/07/2021 [employer] Patient Education 2023 [employer]. Follow Up Care 06/22/2024 10:24:57 With:Paul VILLEGAS, PERLA Araujo, URO Address: When: Unknown Comments:F/U pending cystoscopy [facility] Jason 02-19-2025 NotePatient Education Obstetrics and Gynecology Overactive [...] health care provider. General instructions ??? Take tmfn-seo-yhgyygq and prescription medicines only as told by [...] you drink, and whe (more content not included)...[facility]12-28-2024 Evaluation note* Diagnosis Onset Date Resolution Status Admit Date Acute bilateral otitis media acute April 30, 2024 9:54am [facility] Work Phone: 1(532) 232-685112-28-2024 Evaluation note* Diagnosis Onset Date Resolution Status Admit Date Acute bilateral otitis media acute April 30, 2024 9:54am Acute otitis media with effusion acute May 09 9:07am Insomnia acute May 09 025 9:07am Reaction, situational, acute , to stress acute May 09 9:07am [facility] Work Phone: 1(393) 634-440708-31-2024 Miscellaneous Notes* Telephone Encounter - Jacinta Neri [...] Low 56 Low CM documented in this encounterGenesis Hospital08-31-2024 Telephone encounter Note* Telephone Encounter - [...] >59 ml/min/1.73sq.m 46 Low 56 Low CM [facility]07[facility] History of Present illness Narrative* Hal Fischer - 11/26/2023 2:00 PM EDT Ortho Nurse - Established Patient Intake Room#: 3 --- Patient presents today for 4 month follow-up of RTHA. Patient states that pain is 2/10today. Patient states that she is improved especially with PT, but is still limping more than she anticipated. Patient has been doing PT at [facility] and this helps, says next week is her last session. Patient states that she is due for nerve block in SI joint at [facility] who she seesregularly, states that she needs approval from Dr. Ohara on this. Date: 11/26/2023 2:25 PM Patient: Bettie Burns MR#: [id number] : 1945 Age: 78 y.o. Referring Physician: [...] LUMPECTOMY FOOT SURGERY HEART CATHETERIZATION no stents UT ENDOMETRIAL CRYOABLATION W/US & ENDOMETRIAL CR REMOVAL [...] x 1 month, then 2x/week for maintainence, [facility]/pharmacy #[id number], 165, cm, 02/11/23 10:41:00 EDT, Height/Length Dosing, [...] x 1 month, then 2x/week for maintainence, [facility]/pharmacy #[id number], 165, cm, 02/11/23 10:41:00 EDT, Height/Length Dosing, [...] anticipated. Patient has been doing PT at [facility] and this helps, says next week is her last session. Patient states that she is due for nerve block in SI joint at [facility] who she seesregularly, states that she needs approval from Dr. Ohara on this. Date: 11/26/2023 2:25 PM Patient: Bettie Burns MR#: [id number] : 1945 Age: 78 y.o. Referring Physician: [...] LUMPECTOMY FOOT SURGERY HEART CATHETERIZATION no stents UT ENDOMETRIAL CRYOABLATION W/US & ENDOMETRIAL CR REMOVAL [...] x 1 month, then 2x/week for maintainence, [facility]/pharmacy #[id number], 165, cm, 02/11/23 10:41:00 EDT, Height/Length Dosing, [...] x 1 month, then 2x/week for maintainence, [facility]/pharmacy #[id number], 165, cm, 02/11/23 10:41:00 EDT, [...] oxycodone, penicillins, and tramadol. documented in this encounterElyria [facility] Hospital07-25-2024 History of Present illness Narrative* Mainor Post MD - 11/26/2023 10:30 AM EDT Bettie Burns Date of visit: 11/26/2023 Date of : 1945 Age: 78 y.o. Patient Active Problem List Diagnosis Paroxysmal atrial fibrillation ([facility]) Hypertension SOB (shortness of breath) Dyspnea Palpitations [...] Leg Swelling History of Present Illness Bettie Bursn was seen in follow-up in the [place] office. Records are reviewed. She is a [...] avoidance. Past Medical History: Diagnosis Date A-fib ([facility]) hx of Arrhythmia 12/2016 ATRIAL FIBRILLATION Arthritis Breast cancer ([facility]) 11/14/2015 LEFT COVID-19 03/2020 History of bleeding ulcers Hypertension Migraines Pneumonia d/t covid Prolonged emergence from general anesthesia Visual impairment glasses No data recorded No data recorded No data recorded Past Surgical History: Procedure Laterality Date ABLATION OF DYSRHYTHMIC FOCUS Right nerve ablation, L4 and L5 Afib ablation with SHANICE - CRYO, Rhythmia, ICE N/A 09/28/2018 Performed by Amber Quiñonez MD at [facility] HR (EP) ARTHROSCOPY REPAIR ROTATOR CUFF SHOULDER Right 05/16/2020 Performed by Melchor Rivera DO at [facility] ARTHROSCOPY SHOULDER Right 05/16/2020 Performed by Melchor Rivera DO at [facility] BREAST BIOPSY Left 2016 BREAST LUMPECTOMY Left 11/14/2015 WITH RADIATION BREAST SURGERY Left 2012 lumpectomy CATARACT EXTRACTION CHOLECYSTECTOMY COLONOSCOPY Coronary angiogram and left ventricular gram/pressure N/A 08/08/2021 Performed by Bertram Lal MD at [facility] CARDIAC CATH LABS EYE SURGERY lids [...] Needs: No Transportation Needs (07/07/2023) Received from [facility], [facility] PRAPARE - Transportation Lack of Transportation (Medical): No Lack of Transportation (Non-Medical): No Physical Activity: Not on file Stress: Not on file Social Connections: Not on file Interpersonal Safety: Not on file Housing Instability: Low Risk (07/07/2023) Received from [facility], [facility] Housing Stability Vital Sign Unable to Pay for Housing in the Last Year: No Number of Places Lived in the Last Year: 1 In the last 12 months, was there a time when you did not have a steady place to sleep or slept in [place] (including now)?: No Review of Systems Review [...] STARKS MD Referring Physician: Elliot Starks MD [address] [place] [address] documented in this encounterGenesis Hospital07-24-2024 Miscellaneous Notes* Telephone Encounter - Medina Jaramillo MA - 11/25/2023 10:56 AM EDT Called patient to remind them to bring their most current copy of their medication list with them to their appt. Patient verbalizes understanding. documented in this encounterGenesis Hospital07-24-2024 Telephone encounter Note* Telephone Encounter - Medina Jaramillo MA - 11/25/2023 10:56 AM EDT Called patient to remind them to bring their most current copy of their medication list with them to their appt. Patient verbalizes understanding. [facility]06-17-[facility] Miscellaneous Notes* Telephone Encounter - Jacinta Neri RN - 10/19/2023 9:19 AM EDT Last OV 08/25 CMP 07/25 documented in this encounterGenesis Hospital06-17-2024 Telephone encounter Note* Telephone Encounter - Jacinta Neri RN - 10/19/2023 9:19 AM EDT Last OV 08/25 CMP 07/25 [facility]05-16-[facility] Telephone encounter Note* Telephone Encounter - Matt Adams RN - 09/17/2023 1:30 PM EDT Order faxed to Torey Julio Pt aware. Matt Adams RN [facility]05-16-2024 Miscellaneous Notes* Telephone Encounter - Matt Adams RN - 09/17/2023 1:30 PM EDT Order faxed to Torey Julio Pt aware. Matt Adams RN * Telephone Encounter - Matt Adams RN - 09/17/2023 10:18 AM EDT Pt called to request yearly Mammogram order I have pended order as previously completed Pt requests to fax to Nori Lema [phone] [facility]/: please review and sign if agreeable Matt Adams RN documented in this encounterWyandot [facility]05-16-2024 Telephone encounter Note * Telephone Encounter - Matt Adams RN - 09/17/2023 10:18 AM EDT Pt called to request yearly Mammogram order I have pended order as previously completed Pt requests to fax to Nori Lema [phone] [facility]/: please review and sign if agreeable Matt Adams RN [facility]04-18-2024 History of Present illness Narrative* Eva [...] she is interested in Physcial Therapy through [facility]. Date: 08/20/2023 2:38 PM Patient: Bettie Burns MR#: [id number] : 1945 Age: 78 y.o. Referring Physician: Self, Self Insurance: Payor: MEDICARE AETSwitchNote HMO OR PPO / Plan: MEDICARE AETSwitchNote PPO / Product Type: *No Product type* [...] LUMPECTOMY FOOT SURGERY HEART CATHETERIZATION no stents UT ENDOMETRIAL CRYOABLATION REMOVAL BILIARY DUCT/GALLBLADDER CALCULI/DEBRIS PERCUTANEOUS [...] x 1 month, then 2x/week for maintainence, [facility]/pharmacy #[id number], 165, cm, 02/11/23 10:41:00 EDT, [...] arise. All pertinant portions of the clinical whanau support worker documentation was reviewed and I [...] she is interested in Physcial Therapy through [facility]. Date: 08/20/2023 2:38 PM Patient: Bettie Burns MR#: [id number] : 1945 Age: 78 y.o. Referring Physician: [...] Laterality: Right; Surgeon: Miko Ohara MD; Location: [facility] ONT OR HIP REPLACEMENT 2021 ABLATION NERVE RADIOFREQUENCY PULSED 09/2018 for a-fib with [employer] [facility] APPENDECTOMY BREAST LUMPECTOMY FOOT SURGERY HEART CATHETERIZATION no stents UT ENDOMETRIAL CRYOABLATION REMOVAL BILIARY DUCT/GALLBLADDER CALCULI/DEBRIS PERCUTANEOUS [...] x 1 month, then 2x/week for maintainence, [facility]/pharmacy #[id number], 165, cm, 02/11/23 10:41:00 EDT, [...] oxycodone, penicillins, and tramadol. documented in this encounterElyria Memorial Hospital04-08-2024 Miscellaneous Notes* Telephone Encounter - Ray Wills LPN - 08/10/2023 12:45 AM EDT Theresa 08/12/23 Cmp, mg 07/15/23 documented in this encounterGerman HospitalMerLion [facility]04-08-2024 Telephone encounter Note* Telephone Encounter - Ray Wills LPN - 08/10/2023 12:45 AM EDT Theresa 08/12/23 Cmp, mg 07/15/23 [facility] [employer] [id number] History of Present illness Narrative* Eva Abrams [...] 07/23/2023 2:45 PM Patient: Bettie Burns MR#: [id number] : 1945 Age: 78 y.o. Referring Physician: [...] LUMPECTOMY FOOT SURGERY HEART CATHETERIZATION no stents UT ENDOMETRIAL CRYOABLATION REMOVAL BILIARY DUCT/GALLBLADDER CALCULI/DEBRIS PERCUTANEOUS [...] x 1 month, then 2x/week for maintainence, [facility]/pharmacy #[id number], 165, cm, 02/11/23 10:41:00 EDT, [...] no erythema, drainage or evidence of dehiscence. [place] intact. Calves are soft and nontender with [...] visit. All pertinant portions of the clinical whanau support worker documentation was reviewed. Divine Dougherty I have reviewed the findings of the clinical whanau support worker and agree with their assessment. Divine Dougherty [...] 07/23/2023 2:45 PM Patient: Bettie Burns MR#: [id number] : 1945 Age: 78 y.o. Referring Physician: Divine Dougherty Insurance: Payor: MEDICARE AETSwitchNote HMO OR PPO / Plan: MEDICARE AETSwitchNote PPO / Product Type: *No Product type* [...] NERVE RADIOFREQUENCY PULSED 09/2018 for a-fib with [employer] [facility] APPENDECTOMY BREAST LUMPECTOMY FOOT SURGERY HEART CATHETERIZATION no stents UT ENDOMETRIAL CRYOABLATION REMOVAL BILIARY DUCT/GALLBLADDER CALCULI/DEBRIS PERCUTANEOUS [...] x 1 month, then 2x/week for maintainence, [facility]/pharmacy #[id number], 165, cm, 02/11/23 10:41:00 EDT, [...] oxycodone, penicillins, and tramadol. documented in this encounterElyria Memorial Hospital03-15-2024 Miscellaneous Notes* Telephone Encounter - Estela Bueno RN - 07/17/2023 1:28 AM EDT Dose confirmed with patient documented in this encounterGenesis Hospital03-15-2024 Telephone encounter Note* Telephone Encounter - Estela Bueno RN - 07/17/2023 1:28 AM EDT Dose confirmed with patient [facility]03-13-2024 Miscellaneous Notes* Telephone Encounter - Ashia [...] she was willing. slm documented in this encounterGenesis Hospital03-13-2024 Telephone encounter Note* Telephone Encounter - [...] the ER and she was willing. slm [facility]03-06-2024 Miscellaneous Notes* Nursing Notes - Dolly [...] 07, 2023 ATTENDING PHYSICIAN: Miko Ohara M.D. 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 PROCEDURE PERFORMED: Unlisted procedure of right hip and pelvis, dual-row suture anchor repair of 100% massive abductor tear of right hip, work equivalent similar to CPT 02900 Periarticular injection of right hip. ANESTHESIA: General. [...] it as a CPT similar to that, 01723. ATTENDING/ASSISTING PARTICIPATION: This operation could not have been safely performed (without compromising the technical results or length of the procedure) without the assistance of a skilled surgical corsetier. A surgical corsetier was medically necessary for positioning, retraction and [...] OPERATIVE/PROCEDURE NOTE Bettie Burns 77 y.o. female [id number] SURGEON Surgeons and Role: * Miko Ohara MD - Primary R AND D LAB TECHNICIAN MEDINA Richardson ANESTHESIOLOGIST FILLING OPERATOR: Chance Ngo CRNA; PALAK Barrett SURGICAL STAFF Tree Inspector: Kisha Karimi RN; Whit Govea RN Nurse [...] Implant Name Type Inv. Item Serial No. Semiconductor Wafer Inspector Lot No. LRB No. Used Action ANCHORS, 5.5 NON PUNCHING - [id number] ANCHORS, 5.5 NON PUNCHING HIST ARTHREX [id number] Right 1 Implanted ANCHORS, 5.5 NON PUNCHING - [id number] ANCHORS, 5.5 NON PUNCHING HIST ARTHREX [id number] Right 3 Implanted SPECIMENS ID Type Source [...] Miko Ohara MD 07/07/2023 1434 Paula Fitzpatrick APRN-DOOR INSTALLER July 07, 2023 3:28 PM * Nursing Notes - hCelsea Bledsoe RN - 07/07/2023 10:52 AM EST Unable to doppler right dorsalis pedis pulse. documented in this encounterElyria [facility] Hospital03-06-2024 Nurse Note* Nursing Notes - [...] patient discharged home with daughter and . [facility]03-[facility] Hospital Discharge instructions* Discharge Instructions* [...] at all times - Use a leg hand presser to get in and out of bed [...] - 2023 12:01 PM EST Contact Office ([phone]) if: > Any falls or injuries > [...] or operative leg. documented in this [facility]03-06-20[facility] History of Present illness Narrative* Carmen [...] LUMPECTOMY FOOT SURGERY HEART CATHETERIZATION no stents UT ENDOMETRIAL CRYOABLATION REMOVAL BILIARY DUCT/GALLBLADDER CALCULI/DEBRIS PERCUTANEOUS [...] 0 Equipment Available wheeled walker;elevated toilet seat;shower chair;paper tube machine operator Cognitive Status Examination Orientation Status [...] Supine to Sit, Rehab Eval Level of Hyde: Supine/Sit stand-by assist Physical Assist/Nonphysical Assist: Supine/Sit 1 person assist Transfer Skill: Sit to Stand, Rehab Eval Level of Hyde: Sit/Stand contact guard Physical Assist/Nonphysical Assist: Sit/Stand 1 person assist Weight-Bearing Restrictions: Sit/Stand toe touch weight-bearing Assistive Device for Transfer: Sit/Stand wheeled walker Upper Body Dressing Level of Hyde independent Physical Assist/Nonphysical Assist set-up required Lower Body Dressing Level of Hyde maximum assist (25% patients effort) Physical Assist/Nonphysical Assist 1 person assist Assistive Device paper tube machine operator General Therapy Interventions Planned Therapy Interventions (OT Eval) ADL retraining;balance training;transfer training Clinical Impression Co-evaluation/co-treatment performed? Yes, combination of simultaneous billable and individual billable skilled care was necessary due to medical complexity and functional deficits Patient Instruction/Education comments Pt instructed on LB dressing techniques donning underwear and shorts min assist in sitting and standing with training on use of paper tube machine operator to maintain hip precautions Rehab [...] hygiene training Therapist Information License # [id number] 1. Pt will complete LB dressing SBA [...] LUMPECTOMY FOOT SURGERY HEART CATHETERIZATION no stents UT ENDOMETRIAL CRYOABLATION REMOVAL BILIARY DUCT/GALLBLADDER CALCULI/DEBRIS PERCUTANEOUS [...] Supine to Sit, Rehab Eval Level of Hyde: Supine/Sit stand-by assist Physical Assist/Nonphysical Assist: Supine/Sit 1 person assist Transfer Skill: Sit To Stand, Rehab Eval Hyde (Sit-Stand Transfers) contact guard Physical Assist/Nonphysical Assist: Sit/Stand 1 person assist Weight-Bearing Restrictions: Sit/Stand toe touch weight-bearing Assistive Device For Transfer: Sit/Stand 2 wheeled walker Gait Skills, PT Eval Level of Hyde: Gait contact guard Physical Assist/Nonphysical Assist: Gait [...] educated on hip precautions, use of leg hand presser and weight bearing status. Pteducated to only [...] WITH DR OHARA. documented in this [facility]03-06-[facility] Hospital course Narrative* Chance Mahoney MD [...] x 1 month, then 2x/week for maintainence, [facility]/pharmacy #[id number], 165, cm, 02/11/23 10:41:00 EDT, Height/Length Dosing, [...] Department Dept Phone 07/23/2023 2:30 PM [facility] [phone] documented in this encounterElyria Memorial Hospital03-06-2024 Surgery Postoperative evaluation and management note* Op Note - Miko Ohara MD - 2023 5:54 AM EST DATE OF PROCEDURE: July 07, 2023 ATTENDING PHYSICIAN: Miko Ohara M.D. 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 PROCEDURE PERFORMED: Unlisted procedure of right hip and pelvis, dual-row suture anchor repair of 100% massive abductor tear of right hip, work equivalent similar to CPT 00196 Periarticular injection of right hip. ANESTHESIA: General. [...] it as a CPT similar to that, 49616. ATTENDING/ASSISTING PARTICIPATION: This operation could not have been safely performed (without compromising the technical results or length of the procedure) without the assistance of a skilled surgical corsetier. A surgical corsetier was medically necessary for positioning, retraction and instrume ntation. . [facility] [employer]03-06-2024 Nurse Note* Nursing Notes - Aidee Field RN - 2023 4:10 AM EST Assessment remains unchanged from previous. Neuro checks WN, abductor pillow in place. Call light within reach. . [facility] [employer]03-06-2024 Nurse Note* Nursing Notes - Aidee Field RN - 2023 12:05 AM EST Assessment remains unchanged from previous. Neuro checks WNL, abductor pillow in place. Denies futher needs, call light within reach. [facility]03-05-2024 Consult note* Chance Mahoney MD [...] LUMPECTOMY FOOT SURGERY HEART CATHETERIZATION no stents UT ENDOMETRIAL CRYOABLATION REMOVAL BILIARY DUCT/GALLBLADDER CALCULI/DEBRIS PERCUTANEOUS [...] metabolic panel in the morning GI prophylaxis. [facility]03-05-2024 Consult note* Chance Mahoney MD [...] LUMPECTOMY FOOT SURGERY HEART CATHETERIZATION no stents UT ENDOMETRIAL CRYOABLATION REMOVAL BILIARY DUCT/GALLBLADDER CALCULI/DEBRIS PERCUTANEOUS [...] the morning GI prophylaxis. documented in this encounterUniversity Hospitals [facility] [id number] Nurse Note* Nursing Notes - Marcella Lozano RN - 07/07/2023 4:10 PM EST Arrived to room [facility] from PACU. Bedside report received from RICARDO Jacobo. Oriented to room and provided call light. Admission assessment, head to toe and post op vitals initiated. Fresh ice water and crackers provided. Family members accompanying patient, denies additional needs, call light in reach. FAITH intact flashing green. [facility] [id number] Nurse Note* Sara Garcia RN - 07/07/2023 4:00 PM EST Patient transferred to [facility] via cart in stable condition. Report [...] Fire score of: 2 documented in this encounterElyria Memorial Hospital03-05-2024 Nurse Surgical operation note* Sara Garcia RN - 07/07/2023 4:00 PM EST Patient transferred to [facility] via cart in stable condition. Report given to RICARDO Kim. Cart left in locked and lowest position with side rails up x2. Snack and call light given to patient. Monitorsand alarms on and attached to patient. [facility]03-05-2024 Nurse Surgical operation note* Edison Perez RN - 07/07/2023 3:30 PM EST Patient transported to PACU with Damián TILLEY. Reports given to Sara SILVA at 1530H. [facility]03-05-2024 Surgery Postoperative evaluation and management note* Brief Op Note - Paula Fitzpatrick APRN-AUSTEN - 07/07/2023 3:28 PM EST POST OPERATIVE/PROCEDURE NOTE Bettie Burns 77 y.o. female [id number] SURGEON Surgeons and Role: * Miko Ohara MD - Primary R AND D LAB TECHNICIAN Paula Fitzpatrick APRN-AUSTEN ANESTHESIOLOGIST FILLING OPERATOR: Chance Ngo CRNA; PALAK Barrett SURGICAL STAFF Tree Inspector: Kisha Karimi, RN; Whit Govea RN Nurse Practitioner: MEDINA [...] Implant Name Type Inv. Item Serial No. Semiconductor Wafer Inspector Lot No. LRB No. Used Action ANCHORS, 5.5 NON PUNCHING - [id number] ANCHORS, 5.5 NON PUNCHING HIST ARTHREX [id number] Right 1 Implanted ANCHORS, 5.5 NON PUNCHING - [id number] ANCHORS, 5.5 NON PUNCHING HIST ARTHREX [id number] Right 3 Implanted SPECIMENS ID Type Source [...] MEDINA Richardson July 07, 2023 3:28 PM [facility]03-05-2024 Nurse Surgical operation note* Whit Govea RN - 07/07/2023 2:04 PM EST OR 3 room temp: 65.1F Humidity: 44% Fire score of: 2 [facility]03-05-2024 Nurse Note* Nursing Notes - Chelsea Bledsoe RN - 07/07/2023 10:52 AM EST Unable to doppler right dorsalis pedis pulse. . [facility] [employer] [id number] Miscellaneous Notes* Telephone Encounter - Jacqueline Sparrow [...] to Dr Ohara office. documented in this encounterCopley HospitalConcept Inbox02-16-2024 Telephone encounter Note* Telephone Encounter - Jacqueline [...] on risk, holding Eliquis and Celebrex question. [facility]02-16-2024 Telephone encounter Note* Telephone Encounter - Mundo Diaz MD - 06/19/2023 12:01 PM EST Okay to proceed with surgery at moderate risk Can use Celebrex Hold Eliquis for 2 days resume after surgery [facility] Work Phone: [phone] Telephone encounter Note* Telephone Encounter - Jacqueline Sparrow RN - 06/19/2023 12:01 PM EST Clearance note faxed back to Dr Ohara office. [facility]02-15-2024 History of Present illness Narrative* Eva Abrams [...] year ago with Dr. Denver Hughes in [place]. Pt states she is looking for a second opinion due to having issues from this past surgery. Date: 06/18/2023 2:32 PM Patient: Bettie Burns MR#: [id number] : 1945 Age: 77 y.o. Referring Physician: [...] APPENDECTOMY BREAST LUMPECTOMY FOOT SURGERY HEART CATHETERIZATION UT ENDOMETRIAL CRYOABLATION REMOVAL BILIARY DUCT/GALLBLADDER CALCULI/DEBRIS PERCUTANEOUS [...] tendons as discussed in detail above. 3. [id number] amount of fluid along the lateral aspect [...] reduced pain, improved stability and improved function. Bettei understands the complex nature of revision surgery [...] nasal MRSA screening, scheduling an appointment for [facility] and the potential surgical date, and reviewing [...] APPENDECTOMY BREAST LUMPECTOMY FOOT SURGERY HEART CATHETERIZATION UT ENDOMETRIAL CRYOABLATION REMOVAL BILIARY DUCT/GALLBLADDER CALCULI/DEBRIS PERCUTANEOUS W/ IMAGE REMOVAL CATARACT (PEM) ROTATOR CUFF REPAIR History reviewed. No pertinent family history. Social History Socioeconomic History Marital status: Tobacco Use Smoking status: Never Smokeless tobacco: Never Social Determinants of Health Food Insecurity: No Food Insecurity (06/02/2023) [facility] Hun[facility] Within the past 12 [...] Oxycodone Penicillins Tramadol documented in this [facility]01-30-2024 History of Present illness Narrative* Mundo [...] issues. Past Medical History: Diagnosis Date A-fib ([facility]) hx of Arrhythmia 12/2016 ATRIAL FIBRILLATION Arthritis Breast cancer ([facility]) 11/14/2015 LEFT COVID-19 03/2020 History of bleeding ulcers Hypertension Migraines Pneumonia d/t covid Prolonged emergence from general anesthesia Visual impairment glasses No data recorded No data recorded No data recorded Past Surgical History: Procedure Laterality Date ABLATION OF DYSRHYTHMIC FOCUS Right nerve ablation, L4 and L5 Afib ablation with SHANICE - CRYO, Rhythmia, ICE N/A 09/28/2018 Performed by Amber Quiñonez MD at [facility] () ARTHROSCOPY REPAIR ROTATOR CUFF SHOULDER Right 05/16/2020 Performed by Melchor Rivera DO at [facility] ARTHROSCOPY SHOULDER Right 05/16/2020 Performed by Melchor Rivera DO at [facility] BREAST BIOPSY Left 2016 BREAST LUMPECTOMY Left 11/14/2015 WITH RADIATION BREAST SURGERY Left 2012 lumpectomy CATARACT EXTRACTION CHOLECYSTECTOMY COLONOSCOPY Coronary angiogram and left ventricular gram/pressure N/A 08/08/2021 Performed by Bertram Lal MD at [facility] CARDIAC CATH LABS EYE SURGERY lids [...] STARKS MD Referring Physician: Elliot Starks MD [address] [place] [address] documented in this encounterGerman HospitalFanwards Forest View [id number] History of Present illness Narrative* Divine Kanika - 05/14/2023 9:30 AM EST Ortho Nurse - Patient Intake 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 Referring Physician: [...] [x]cane, []bracing Are you followed by a industrial safety and health specialist? [x] [] Name: Dr. Waleska Zhu - Torey Lowe Are you followed by pain management? [x] [] Name: Dr. Cedeno - Xenia Wayne @ [facility] Are you followed by any other specialists? [x] [] Name: Oncolgist - Dr. Choi [facility] Urologist - Dr. Christian Bourne [...] abductor muscles as well as ESR/CRP and [place] and Chromium labs today. I will see [...] APPENDECTOMY BREAST LUMPECTOMY FOOT SURGERY HEART CATHETERIZATION UT ENDOMETRIAL CRYOABLATION REMOVAL BILIARY DUCT/GALLBLADDER CALCULI/DEBRIS PERCUTANEOUS [...] Oxycodone Penicillins Tramadol documented in this [facility]11-27-2023 Evaluation note* Encounter Date Diagnosis [...] verbalizes understanding and agrees with tx plan. [facility] Other 10-11-2023 Hospital Discharge instructions Patient Education [...] provider. Document Revised: 08/29/2021 Document Reviewed: 08/29/2021 Blockchain Patient Education 2022 [employer]. Follow Up Care 11/06/2022 15:31:52 With:Paul VILLEGAS, PERLA Araujo, URO Address: When:Within 3 Month(s) [facility] 07-17-2023 Evaluation note* Encounter Date Diagnosis Assessment Notes Treatment Notes Treatment Clinical Notes Nov, Dysuria (ICD-10 - R30.0) [facility] Other 06-29-2023 Evaluation note* Encounter Date Diagnosis Assessment Notes Treatment Notes Treatment Clinical Notes Oct, Frequent UTI (ICD-10 - N39.0) Pt requests Urology referral. Discussed also getting CT to move along process. Oct, Dyshidrotic eczema (ICD-10 - L30.1) Will treat with steroid cream prn [facility] Other 06-26-2023 Evaluation note* Encounter Date Diagnosis Assessment Notes Treatment Notes Treatment Clinical Notes Oct, Dysuria (ICD-10 - R30.0) [facility] Other 05-11-2023 Miscellaneous Notes* Telephone Encounter - Matt Adams RN - 09/11/2022 11:43 AM EDT Order faxed to [facility] and pt is aware. Matt Adams RN * Telephone Encounter - Matt Adams RN - 09/11/2022 9:51 AM EDT Pt called to request yearly Mammogram order I have pended order as previously completed Pt requests to fax to Nori Lema [phone] BRM/HM: please review and sign if agreeable Matt Adams RN [facility]* Encounter Date Diagnosis Assessment Notes Treatment Notes Treatment Clinical Notes Aug, Dysuria (ICD-10 - R30.0) [facility] Other 03-16-2023 Evaluation note* Encounter Date Diagnosis [...] N32.81) chronic and improved on present med [facility] Other 02-20-2023 Evaluation note* Encounter Date Diagnosis Assessment Notes Treatment Notes Treatment Clinical Notes Jun, Dysuria (ICD-10 - R30.0) [facility] Other 02-03-2023 Evaluation note* Encounter Date Diagnosis Assessment Notes Treatment Notes Treatment Clinical Notes Jun, OAB (overactive bladder) (ICD-10 - N32.81) [facility] Other 02-01-2023 Evaluation note* Encounter Date Diagnosis Assessment Notes Treatment Notes Treatment Clinical Notes Jun, OAB (overactive bladder) (ICD-10 - N32.81) Patient request to try new medication reviewed side effect profile. Patient declines urology or ACDS BLOCK 1 OPERATOR referral at this time. Jun, Essential hypertension (ICD-10 - I10) reviewed and updated medications she will follow-up with cardiology in Jun, Hypokalemia (ICD-10 - E87.6) Reviewed and updated medications. Discussed foods that are high in potassium Jun, Right lumbar pain (ICD-10 - M54.50) Follow-up with Dr. Rivera as scheduled in June. She does have limping with her gait. [facility] Other 05-26-2022 Miscellaneous Notes* Telephone Encounter - Andrew Choi MD - 09/26/2021 5:13 PM EDT Okay to change to screening mammogram. Order signed. ASIYA Ford * Telephone Encounter - Mikaela Thompson RN - 09/26/2021 2:33 PM EDT Pt scheduled for diagnostic mamm tomorrow @ [facility]. Hospital calls to ask if this could be changed to a screening mammogram since the pt is greater than 2 years from diagnosis? Mikaela Thompson RN documented in this [facility] Hospital[facility] + Plan note Future Appointments Appointment Date:05/27/2023 08:45:00 AM Scheduled Provider:Paul VILLEGAS, Alfreda Palacios Location:[facility] Appointment Type:URO Office Visit [facility] evaluation + Plan note Future Appointments Appointment Date:07/22/2024 10:30:00 AM Scheduled Provider: Location:[facility] Appointment Type:Urology CALL PAT FT Appointment Date:07/25/2024 08:15:00 AM Scheduled Provider: Location:[facility] Appointment Type:Urology FT [facility] evaluation + Plan note Future Appointments Appointment Date:07/22/2024 10:30:00 AM Scheduled Provider: Location:[facility] Appointment Type:Urology CALL PAT FT Appointment Date:07/25/2024 08:15:00 AM Scheduled Provider: Location:[facility] Appointment Type:Urology FT Diagnostic Tests Pending * Urine Culture 06/22/24 [facility] evaluation + Plan note Future Appointments Appointment Date:09/16/2024 11:30:00 AM Scheduled Provider: Location:[facility] Appointment Type:Urology CALL PAT FT Appointment Date:09/19/2024 08:00:00 AM Scheduled Provider: Location:[facility] Appointment Type:Urology FT [facility] evaluation + Plan note Future Appointments Appointment Date:01/25/2025 08:00:00 AM Scheduled Provider:Maria E Osman PA-C Location:[facility] Appointment Type:URO Office Visit [facility] evaluation + Plan note Future Appointments Appointment Date:03/14/2025 08:00:00 AM Scheduled Provider:Maria E Osman PA-C Location:[facility] Appointment Type:URO Office Visit [facility] evaluation note* Diagnosis Encounter for screening mammogram for malignant neoplasm of breast- Primary Other screening mammogram [facility] Diagnosis Malignant neoplasm of upper-outer quadrant of left breast in female, estrogen receptor positive (HCC)- Primary documented in this encounter [facility] noteNo InformationNort [employer] Other Evaluation note* Diagnosis Encounter for screening mammogram for malignant neoplasm of breast- Primary Other screening mammogram documented in this encounter [facility] noteNo assessment information [facility] Work Phone: evaluation note* Diagnosis Pain in prosthetic joint, initial encounter- Primary Primary osteoarthritis of right hip Primary localized osteoarthrosis, pelvic region and thigh [facility] Diagnosis Right hip pain- Primary Pain in joint, pelvic region and thigh Pre-op testing- Primary Preoperative examination, unspecified Essential (primary) hypertension Unspecified essential hypertension Abnormal finding of blood chemistry, unspecified Abnormal coagulation profile Tear of rotator cuff of right hip, initial encounter 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, initial encounter documented in this encounter [facility]* Diagnosis Status post revision of total hip- Primary Hip joint replacement by other means Pre-op testing Preoperative examination, unspecified Tear of rotator cuff of right hip, initial encounter 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, initial encounter Acute postoperative pain of right hip documented in this encounter [facility]* Diagnosis Tear of gluteus minimus tendon, right, initial encounter- Primary documented in this encounter [facility]* Diagnosis Right hip pain- Primary Pain in joint, pelvic region and thigh documented in this encounter [facility]* Diagnosis Onset Date Resolution Status Dysuria noneactive [facility] Work Phone: Evaluation note* Diagnosis Hx of total hip arthroplasty, right- Primary documented in this encounter [facility]* Diagnosis Paroxysmal atrial fibrillation (CMS-HCC)- Primary Atrial fibrillation Primary hypertension Unspecified essential hypertension Chronic coronary artery disease Coronary atherosclerosis of unspecified type of vessel, [place] or graft [facility] in this [facility]* Diagnosis Paroxysmal atrial fibrillation (CMS-HCC)- Primary Atrial fibrillation Unstable angina (CMS-HCC) Intermediate coronary syndrome SOB (shortness of breath) Shortness of breath [facility] Diagnosis Hx of total hip arthroplasty, right- Primary documented in this encounter [facility]* Diagnosis Paroxysmal atrial fibrillation (CMS-HCC) Atrial fibrillation [facility] Diagnosis Paroxysmal atrial fibrillation (CMS-HCC) Atrial fibrillation [facility]* Diagnosis Primary hypertension- Primary Unspecified essential hypertension 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 (CMS-HCC) documented in this encounter [facility]* Diagnosis Paroxysmal atrial fibrillation (CMS-HCC)- Primary Atrial fibrillation Benign hypertension Essential hypertension, benign [facility]* Diagnosis Paroxysmal atrial fibrillation (CMS-HCC)- Primary Atrial fibrillation Primary hypertension Unspecified essential hypertension Palpitations [facility] Diagnosis Paroxysmal atrial fibrillation (CMS-HCC) Atrial fibrillation [facility]* Diagnosis Onset Date Resolution Status Admit Date Dysuria acute November 29 8:53am [facility] Work Phone: Evaluation note* Diagnosis Seborrheic [...] replacement 12/16/2021 Hospitalization History SEE SURGICAL HX [facility] Other Hospital course Narrative No data available for this section [facility] Hospital Discharge instructions* Attachments The following attachments cannot be sent through Care Everywhere. * [facility] AMB SMOKING CESSATION LINKS documented in [facility] Dis[facility] instructions No data available for this section [facility] InstructionsNot on filedocumented in this encounter [...] available for this section [facility] Jason reason for referral (narrative)* Diagnostic Procedure Only (Routine) - Pending Review Specialty Diagnoses / Procedures Referred By Juan t Referred To Contact [facility] Diagnoses Encounter for screening mammogram for malignant neoplasm of breast Procedures SHANE SCREENING W YAW SCREENING DIGITAL BREAST TOMOSYNTHESIS BI SCREENING MAMMOGRAPHY BI 2-VIEW BREAST INC Andrew Miguel MD [address] [address] [facility] [address] [place] [phone] Referral ID Status Reason Start Date Expiration Date Visits Requested Visits Authorized [id number] Pending Review Auto-Generat ed Referral 09/26/2021 10/26/2022 1 1 [facility] for referral (narrative)* Diagnostic Procedure Only (Routine) - Pending Review Specialty Diagnoses / Procedures Referred By Juan wren Referred To Contact [facility] Diagnoses Encounter for screening mammogram for malignant neoplasm of breast Procedures SHANE SCREENING W YAW SCREENING DIGITAL BREAST TOMOSYNTHESIS BI SCREENING MAMMOGRAPHY BI 2-VIEW BREAST INC Andrew Miguel MD [address] [place] [address] [facility] [address] [place] [phone] Referral ID Status Reason Start Date Expiration Date Visits Requested Visits Authorized [id number] Pending Review Auto-Generat ed Referral 09/11/2022 10/11/2023 1 1 [facility] for referral (narrative)* (Routine) Specialty Diagnoses / Procedures Referred By Juan t Referred To Contact [facility] [address] [place] [phone] Referral ID Status Reason Start Date Expiration Date Visits Re quested Visits Authorized [facility] for referral (narrative)* Consultation (Routine) - Patient to Arrange Specialty Diagnoses / Procedures Referred By Juan wren Referred To Contact Physical Therapy Diagnoses Right hip pain Divine Dougherty [address] [place] [phone] Referral ID Status Reason Start Date Expiration Date V isits Requested Visits Authorized [id number] Patient to Arrange 08/20/2023 09/13/2024 1 1 Scheduling Instructions . * Diagnostic X-Ray (Routine) - New Request Specialty Diagnoses / Procedures Referred By Juan wren Referred To Contact Diagnoses Right hip pain Procedures XR HIP WITH PELVIS RIGHT Divine Dougherty [address] [place] [phone] Referral ID Status Reason Start Date Expiration Date V isits Requested Visits Authorized [id number] New Request 08/20/2023 09/13/2024 1 1 [facility] for referral (narrative)* Diagnostic Procedure Only (Routine) - Pending Review Specialty Diagnoses / Procedures Referred By Juan wren Referred To Contact [facility] Diagnoses Encounter for screening mammogram for malignant neoplasm of breast Procedures SHANE SCREENING W YAW SCREENING DIGITAL BREAST TOMOSYNTHESIS BI SCREENING MAMMOGRAPHY BI 2-VIEW BREAST INC Andrew Miguel MD [address] [place] [address] [place] [address] [facility] [address] [place] [address] Referral ID Status Reason Start Date Expiration Date Visits Requested Visits Authorized [id number] Pending Review Auto-Generat ed Referral 09/17/2023 10/16/2024 1 1 [facility] for referral (narrative)No reason for referral [facility] Work Phone: Reason for visit Narrative* Diagnostic X-Ray (Routine) - New Request Specialty Diagnoses / Procedures Referred By Juan t Referred To Contact Diagnoses Hx of total hip arthroplasty, right Procedures XR HIP WITH PELVIS RIGHT AmariPaula, FINISHING DEPARTMENT SUPERVISOR-DOOR INSTALLER [address] [place] [address] Phone: tel: fax: Referral ID Status Reason Start Date Expiration Date V isits Requested Visits Authorized [id number] New Request 07/12/2024 08/06/2025 1 1 [facility] Summary Purpose Family History No Family History Records Found Relationship Condition Age at Onset Recorded Date/T nilam father Unknown mother Unknown Advance Directives No Advanced Directives Records FoundDocuments on File Type Date Recorded Patient Winder Operator Expl anation Advance Directives/Living Will 06/25/2023 9:17 AM DURABLE POWER OF POTTERY KILN BUILDER FOR HEALTHCARE 06/25/23 Advance Directives/Living Will 06/25/2023 [...] Documents on File Type Date Recorded Patient Winder Operator Expl anation Living Will 05/21/2020 9:37 AM Durable Power of Pattern Chain Builder 05/21/2020 9:27 AM Durable Power of Pattern Chain Builder 05/16/2020 6:05 AM Living Will 05/16/2020 6:04 [...] HIP WITH PELVIS RIGHT Miko Ohara MD [address] [place] [phone] Referral ID Status Reason Start Date Expiration Date V isits Requested Visits Authorized [id number] New Request 11/16/2023 12/10/2024 1 1 Specialty Diagnoses / Procedures Referred By Contac t Referred To Contact Diagnoses Tear of gluteus minimus tendon, right, initial encounter Procedures XR HIP WITH PELVIS RIGHT Divine Dougherty [address] [place] [phone] Referral ID Status Reason Start Date Expiration Date V isits Requested Visits Authorized [id number] New Request 07/20/2023 08/13/2024 1 1 Specialty Diagnoses / Procedures Referred By Contac t Referred To Contact Diagnoses Pain in prosthetic joint, initial encounter Procedures MRI HIP RIGHT WITHOUT CONTRAST UT MRI LOWER EXTREM JT, W/O CONTRAST Miko Ohara MD [address] [place] [phone] Referral ID Status Reason Start Date Expiration Date V isits Requested Visits Authorized [id number] New Request 05/14/2023 06/07/2024 1 1 Specialty Diagnoses / Procedures Referred By Contac t Referred To Contact Diagnoses Pain in prosthetic joint, initial encounter Procedures COBALT AND CHROMIUM,WB Miko Ohara MD [address] [place] [phone] Referral ID Status Reason Start Date Expiration Date V isits Requested Visits Authorized [id number] New Request 05/14/2023 06/07/2024 1 1 Specialty Diagnoses / Procedures Referred By Contac t Referred To Contact Diagnoses Primary osteoarthritis of right hip Procedures XR HIP WITH PELVIS RIGHT Miko Ohara MD [address] [place] [id number] Referral ID Status Reason Start Date Expiration Date V isits Requested Visits Authorized [id number] New Request 05/06/2023 05/30/2024 1 1 Reason *FU 11/12 [place] office Diagnosis 1 Frequent UTI (N39.0) Referral Organization [facility] Referring Provider First Name Elliot Referring Provider Last Name Raudel Referring Provider Specialty Family [facility] Referred Organization [facility] Referred Provider PAULALFREDA Referred Address [address] [place], [place],[address] Referred Provider Specialty Urology Referral Priority Routine General Notes KalyandeannaVictoria 11:03:05 AM >received today, notes attached, along [...] 10:23am Hypokalemia December 29, 2024 10 :23am Chief Complaint Admit Date UA, burning, itching, [...] Syncopal episodes February 03, 2025 8: 17am Reason for [...] Syncopal episodes February 03, 2025 8: 17am Additional Source Comments INFORMATION SOURCE (unrecogn ized section and content) DATE CREATED AUTHOR 10/28/2017 [facility] DATE CREATED AUTHOR AUTHOR'S ORGANIZ ATION 03/21/2020 [facility] DATE CREATED AUTHOR AUTHOR'S ORGANIZ ATION 09/13/2021 [facility] dical Specialist DATE CREATED AUTHOR AUTHOR'S ORGANIZ ATION 06/11/2022 [facility] DATE CREATED AUTHOR AUTHOR'S ORGANIZ ATION 05/20/2023 [facility] DATE CREATED AUTHOR AUTHOR'S ORGANIZ ATION 09/19/2023 [facility] DATE CREATED AUTHOR AUTHOR'S ORGANIZ ATION 06/24/2024 [facility] DATE CREATED AUTHOR AUTHOR'S ORGANIZ ATION 06/26/2024 [facility] DATE CREATED AUTHOR AUTHOR'S ORGANIZ ATION 07/17/2024 [facility] DATE CREATED AUTHOR AUTHOR'S ORGANIZ ATION 09/13/2024 [facility] DATE CREATED AUTHOR AUTHOR'S ORGANIZ ATION 09/18/2024 [facility] DATE CREATED AUTHOR AUTHOR'S ORGANIZ ATION 11/12/2024 [facility] DATE CREATED AUTHOR AUTHOR'S ORGANIZ ATION 12/16/2024 [facility] DATE CREATED AUTHOR AUTHOR'S ORGANIZ ATION 12/28/2024 [facility] DATE CREATED AUTHOR AUTHOR'S ORGANIZ ATION 01/13/2025 [facility] DATE CREATED AUTHOR AUTHOR'S ORGANIZ ATION 02/03/2025 [facility] DATE CREATED AUTHOR AUTHOR'S ORGANIZ ATION 02/04/2025 [facility] DATE CREATED AUTHOR AUTHOR'S ORGANIZ ATION 02/12/2025 [facility] DATE CREATED AUTHOR AUTHOR'S ORGANIZ ATION 02/13/2025 [facility] ysician Group Source Comments (unrecognize d section and content) In the event this informatio n is protected by the Federal Confidentiality of Alcohol and Drug Abuse Patient Records regulations: The Federal rules restrict any use of the information to criminally investigate or prosecute any alcohol or drug abuse patient.[facility] Hospital[facility] the event this information is protected by the Federal Confidentiality of Alcohol and Drug Abuse Patient Records regulations: The Federal rules restrict any use of the information to criminally investigate or prosecute any alcohol or drug abuse patient.[facility] Hospital[facility] the event this information is protected by the Federal Confidentiality of Alcohol and Drug Abuse Patient Records regulations: The Federal rules restrict any use of the information to criminally investigate or prosecute any alcohol or drug abuse patient.[facility] HospitalIn the event this information is protected by the Federal Confidentiality of Alcohol and Drug Abuse Patient Records regulations: The Federal rules restrict any use of the information to criminally investigate or prosecute any alcohol or drug abuse patient.[facility] Reason for Visit (unrecogniz ed section and content) Reason Comments Radiology Mammogram Reason Comments Lab Orders Reason Comments Orders Specialty Diagnoses / Procedures Referred By Contac t Referred To Contact Diagnoses Primary osteoarthritis of right hip Procedures XR HIP WITH PELVIS RIGHT Miko Ohara MD [address] [place] [address] Referral ID Status Reason Start Date Expiration Date V isits Requested Visits Authorized [id number] New Request 05/06/2023 05/30/2024 1 1 Reason [...] right hip prosthesis, initial encounter [T84.090A] Procedures UT PELVIS/HIP JOINT SURGERY UNLISTED UT REVISE TOTAL HIP REPLACEMENT GLUTEUS MEDIUS TENDON REPAIR REVISION ARTHROPLASTY HIP BOTH ACETABULAR & FEMORAL COMPONENTS Miko Ohara MD [address] [place] [phone] Referral ID Status Reason Start Date Expiration Date Visits Re quested Visits Authorized [id number] 06/19/2023 1 1 Reason Comments Post Op Visit Specialty Diagnoses / Procedures Referred By Juan t Referred To Contact Diagnoses Tear of gluteus minimus tendon, right, initial encounter Procedures XR HIP WITH PELVIS RIGHT Divine Dougherty [address] [place] [phone] Referral ID Status Reason Start Date Expiration Date V isits Requested Visits Authorized [id number] New Request 07/20/2023 08/13/2024 1 1 Reason Comments Follow-up Specialty Diagnoses / Procedures Referred By Juan t Referred To Contact Diagnoses Right hip pain Procedures XR HIP WITH PELVIS RIGHT Divine Dougherty [address] [place] [phone] Referral ID Status Reason Start Date Expiration Date V isits Requested Visits Authorized [id number] New Request 08/20/2023 09/13/2024 1 1 Reason Comments Yearly Exam With Mammogram Reason Comments Pain Specialty Diagnoses / Procedures Referred By Juan t Referred To Contact Diagnoses Hx of total hip arthroplasty, right Procedures XR HIP WITH PELVIS RIGHT Miko Ohara MD [address] [place] [phone] Referral ID Status Reason Start Date Expiration Date V isits Requested Visits Authorized [id number] New Request 11/16/2023 12/10/2024 1 1 Reason [...] Care Teams (unrecognized sec tion and content) Elementary Librarian Relationship Specialty Start Date End Date Elilot Starks MD [address] [place] [phone] PCP - General Family Practice 11/26/15 Elementary Librarian Relationship Specialty Start Date End Date Elliot Starks MD [address] [facility] [place] [address] PCP - General Family Practice 11/26/15 Elementary Librarian Relationship Specialty Start Date End Date Elliot Starks MD [address] [facility] [place] [address] PCP - General Family Medicine 11/26/15 Team Status: Inactive Member Role Status Dates Elliot Starks MD Attending Provider Active Elementary Librarian Relationship Specialty Start Date End Date Elliot Starks MD [address] [address] [facility] [place], [place] [id number] PCP - General Family Medicine 05/11/23 Elementary Librarian Relationship Specialty Start Date End Date Elliot Starks MD [address] [facility] [place], [place] [id number] PCP - General Family Medicine 05/11/23 Elementary Librarian Relationship Specialty Start Date End Date Elliot Starks MD [address] [facility] [place], [place] [id number] PCP - General Family Medicine 05/11/23 Elementary Librarian Relationship Specialty Start Date End Date Elliot Starks MD [address] [facility] [place], [place] [id number] PCP - General Family Medicine 05/11/23 Elementary Librarian Relationship Specialty Start Date End Date Elliot Starks MD [address] [facility] [place] [address] PCP - General Family Medicine 05/11/23 Elementary Librarian Relationship Specialty Start Date End Date Elliot Starks MD [address] [facility] [place] [address] PCP - General Family Medicine 05/11/23 Elementary Librarian Relationship Specialty Start Date End Date Elliot Starks MD [address] [facility] [place] [address] PCP - General Family Medicine 05/11/23 Elementary Librarian Relationship Specialty Start Date End Date Elliot Starks MD [address] [place] [facility] [place] [address] PCP - General Family Medicine 05/11/23 Elementary Librarian Relationship Specialty Start Date End Date Elliot Starks MD [address] [facility] [place] [address] PCP - General Family Medicine 11/26/15 Team [...] May 09, 2024 End: May 09, 2024 Elementary Librarian Relationship Specialty Start Date End Date Elliot Starks MD [address] [place] [address] PCP - General 03/17/17 Elementary Librarian Relationship Specialty Start Date End Date Elliot Starks MD [address] [place] [address] 57[address] PCP - General 07/15/23 Elementary Librarian Relationship Specialty Start Date End Date Elliot Starks MD [address] [place] [address] 720[address] PCP - General 03/17/17 Elementary Librarian Relationship Specialty Start Date End Date Elliot Starks MD [address] [place] [address] PCP - General 03/17/17 Elementary Librarian Relationship Specialty Start Date End Date Elliot Starks MD [address] [place] [address] 240[address] PCP - General 07/15/23 Elementary Librarian Relationship Specialty Start Date End Date Elliot Starks MD [address] [place] [address] PCP - General 07/15/23 Elementary Librarian Relationship Specialty Start Date End Date Elliot Starks MD [address] [place] [address] PCP - General 07/15/23 Team Status: Active Member Role Status Dates Elliot Starks MD Primary Care Provide r, Attending Provider Active Start: May 11, 2024 Team Status: Inactive Member Role Status Dates Elliot Starks MD Primary Care Provider Active Start: June 21, 2024 End: June 21, 2024 Chinedu Farley DO Attending Provider Active Sta rt: June 21, 2024 End: June 21, 2024 Elementary Librarian Relationship Specialty Start Date End Date Elliot Starks MD [address] [place] [address] PCP - General Family Medicine 05/11/23 Elementary Librarian Relationship Specialty [place] [address] [place] [address] PCP - General Family Medicine 05/11/23 Elementary Librarian Relationship Specialty Start Date End Date Elliot Starks MD [address] [place] [address] PCP - General 07/15/23 Elementary Librarian Relationship Specialty [place] [address] [place] [address] PCP - General 07/15/23 Elementary Librarian Relationship Specialty [place] [address] [place] [address] PCP - General 07/15/23 Elementary Librarian Relationship Specialty [place] [address] [place] [address] PCP - General 07/15/23 Team Status: Inactive Member Role Status Dates Elliot Starks MD Primary Care Provider Active Start: November 29, 2024 End: November 29, 2024 Elliot Starks MD Attending Provider Active St art: November 29, 2024 End: November 29, 2024 Elementary Librarian Relationship Specialty Start Date End Date Elliot Starks MD PCP - General Family Medicine 09/26/22 Elementary Librarian Relationship Specialty Start Date End Date Elliot [...] December 29, 2024 End: December 29, 2024 Elementary Librarian Relationship Specialty Start Date End Date Elliot Starks MD [address] [place] [address] [facility] General 07/15/23 Elementary Librarian Relationship Specialty Start Date End Date Elliot Starks MD [address] [place] [address] [facility] General 07/15/23 Team Status: Active Member Role Status Dates Elliot Starks MD Primary Care Provider Active Start: January 29, 2025 Ian Connell DO Attending Provider Active S tart: January 29, 2025 Team Status: Active Member Role Status Dates Elliot Starks MD Primary Care Provider Active Start: January 31, 2025 Ayanna Saini CMA Attending Provider Active Start: January 31, 2025 Team Status: Inactive Member Role Status Dates Elliot Starks MD Primary Care Provider Active Start: February 03, 2025 End: February 03, 2025 Elliot Starks MD Attending Provider Active St art: February 03, 2025 End: February 03, 2025 Team Status: Active Member Role Status Dates Elliot Starks MD Primary Care Provider Active Start: February 03, 2025 Elliot Starks MD Attending Provider Active St art: February 03, 2025 Team Status: Active Member Role Status Dates Elliot Starks MD Primary Care Provider Active Start: February 03, 2025 Elliot Starks MD Other Provider Active Start: February 03, 2025 Marisa Willis MD Attending Provider Active Sta rt: February 03, 2025 Goals (unrecognized section and content) Goals may [...] Post-op/Post-Proc 903 (Given - Provid er: Dolly Liao, RICARDO) [...] 2102 ($$New Bag$$ - Provider: Aidee Field RN)213 (Stopped - Provider: Aidee Field RN) 0608 ($$New Bag$$ - Provider: Aidee Field RN)151 ($$New Bag$$ - Provider: Dolly Liao RN) [...] RN)1514 ($$New Bag$$ - Provider: Damián Saenz APRN-FILLING OPERATOR)1647 (Stopped - Provider: Aidee Field RN) Sodium [...] 2 g, Intravenous, Administer over 15 Minutes, [employer] DRIVER TO PROCEDURE, 1 dose, Starting on Thu07/07/23 at 1003, Until Thu07/07/23 at 1409, Other, Pre-operative antibiotic, Pre-op/Pre-Proc 1354 (Given - Provider: eMlchor Holcomb, FINISHING DEPARTMENT SUPERVISOR-[facility]) HYDROmorphone (DILAUDID) injection 0.5 mg 0.5 [...] days, Post-op/Post-Proc 164 (Given - Provider: Marcella Lozano, RN)2102 (Given - Provider: Aidee Field, RICARDO) [...] BE BASED ON THE PRIMARY CLINICAL RECORDS. [facility]. provides no warranty or guarantee of the accuracy or completeness of information in this document.
--- OUTSIDE RECORDS SUMMARY | 2025-02-14 08:41 | XMS_ITS | Encounter Summary ---
Author Organization [employer] s tem Address [id number] [address] [place] [address] Care Team Providers Care Network Services Project Manager Name Role Phone Marine Galss MD Primary Care Provider [phone] Reason for Visit * Reason Onset Date Comments Results 10/26/2017 Encounter Details Date Type Department Care Team (Late st Contact Info) Description 10/26/2017 Telephone [facility] [address] [address] Jacqueline Sparrow, RICARDO Results Social History [...] Department Care Team (Late Contact Info) Description 02/23/2025 2:45 PM EDT Office Visit [facility] [address] [place] [phone] Joshua Zhu MD [address] [place], [place] [id number] documented as of this encounter Visit Diagnoses Not on filedocumented in this encounter Additional Health Concerns Infection Onset Date Last Indicated Resolved Time COVID-19 Rule-Out 05/20/2021 05/20/2021 05/20/2021 6:32 PM EST COVID-19 Rule-Out 08/02/2021 08/02/2021 08/03/2021 1:10 AM EDT documented as of this encounter Care Teams Network Services Project Manager Relationship Specialty Start Date End Date Marine Glass MD [facility] [place] [address] PCP - General 07/15/23 documented as of this encounter
--- OUTSIDE RECORDS SUMMARY | 2025-02-14 08:41 | XMS_ITS | Encounter Summary ---
Author Organization [facility] Address [address] [place] [address] Care Team Providers Care Inventory Specialist Name Role Phone Marine Glass MD Primary Care Provider [phone] Encounter Details Date Type Department Care Team (Late st Contact Info) Description 09/26/2022 Abstract [facility] [address] [place] [address] Melchor Rivera DO [address] [place] [address] Social History Tobacco Use Types Packs/Day Years [...] on filedocumented in this encounter Care Teams Inventory Specialist Relationship Specialty Start Date End Date Marine Glass MD PCP - General Family Medicine 09/26/22 documented as of this encounter
--- OUTSIDE RECORDS SUMMARY | 2025-02-14 08:41 | XMS_ITS | Encounter Summary ---
Author Organization [facility] Address [address] [place] [address] Care Team Providers Care A P Manager Name Role Phone Marine Glass MD Primary Care Provider [phone] Encounter Details Date Type Department Care Team (Late st Contact Info) Description 10/13/2022 Orders Only [facility] [address] [place] [address] Fabi De Anda DDD (degenerative [...] disc documented in this encounter Care Teams A P Manager Relationship Specialty Start Date End Date Marine Glass MD PCP - General Family Medicine 09/26/22 documented as of this encounter
== END 2025-02-13 08:01 | disposition home or self-care (01) ==
LOC: SLEEP 02-14 08:35
PROVIDERS: PCP Family Medicine; Visit Provider Family Medicine
DX: G47.33 Obstructive sleep apnea (adult) (pediatric) (principal); F51.01 Primary insomnia
CPT/HCPCS: 95806

== ENCOUNTER 2025-03-13 20:48 | Outpatient (OUT) | payer MEDICARE, SELFPAY ==
--- OUTSIDE RECORDS SUMMARY | 2025-03-13 20:52 | XMS_ITS | Clinical Summary ---
Author Organization [facility] Address [address] [place] [address] Care Team Providers Care Marine Insulator Name Role Phone Marine Glass MD Primary Care Provider [phone] Allergies Active AllergyReactionsCriticalityNoted DateComments*Adhesive TapeMedium 07/03/2022 Other reaction(s): Blister CephalexinNausea Only,Dry Mouth,Ajehklqr43/07/2024Hydrocodone-Acetaminophen Itching,Nausea Only,TagqOjvago67/16/2017 Other Reaction(s): Unknown Latex06/19/2023LevofloxacinItching,Nausea Only,OafqAqeuia32/16/2017 Other Reaction(s): Unknown Taeuwdmz93/11/8831Hgkuyceih90/11/1847Qccpnzeidxn44/11/5297Ofgaqmkg06/11/2024 Medications MedicationSigDispense QuantityRefillsLast FilledStart DateEnd DateStatus Lisinopril 20 MG tablet Take 1 tablet by mouth daily.Active Atenolol 50 MG tablet Take 1.5 tablets by mouth daily. amActive apixaban 2.5 MG tablet Take 2 tablets by mouth every 12 hours.Active OMEPRAZOLE PO Take 20 mg by mouth daily. amActive temazepam 15 MG capsule Take 2 capsules by mouth At bedtime as needed for Sleep.Active hydroCHLOROthiazide 25 MG tablet Take 1 tablet by mouth daily.Active TROSPIUM CHLORIDE PO Take 20 mg by mouth 2 times daily (take before meals).Active baclofen 10 MG tablet Take 1 tablet by mouth 3 times daily. NEEDEDActive Multiple Vitamin (multivitamin) capsule Take 1 capsule by mouth daily.Active NON-FORMULARY Med Name:Neuveria vitamin 1 qdActive ESTRACE VAGINAL 0.1 MG/GM cream See Instructions, 42.5 gm, Refill(s) 3, apply pea size amount to urethra/inner vagina 3x/week x 1 month, then 2x/week for maintainence, [facility]/pharmacy #[id number], 165, cm, 02/11/23 10:41:00 EDT, Height/Length Dosing, 77.5, kg, 02/11/23 10:41:00 EDT, Weight Sxcsch8802/11/2023ctive potassium chloride 10 MEQ Tab CR tablet ER Take 1 tablet by mouth daily.Active SUMAtriptan 25 MG tablet as needed.Active Acetaminophen 325 MG tablet Take 2 tablets by mouth every 4 hours as needed for Mild Pain. 50 tablet ctive oxyCODONE 5 MG tablet Indications:Acute postoperative pain of right hipTake 1-2 tabs po q 4-6 hours prn pain. Wean as tolerated. 30 tablet 07/07/2023ctive Docusate 100 MG capsule Take 1 capsule by mouth 2 times daily. 60 capsule 07/07/2023ctive Flecainide 50 MG tablet Take 1 tablet by mouth Twice daily.07/15/2023ctive Active Problems ProblemNoted DateDiagnosed DateStatus post revision of total hip2023 Social History Tobacco UseTypesPacks/DayYears UsedDateSmoking Tobacco: NeverSmokeless Tobacco: Never Tobacco Cessation:Counseling Given: Not Answered Alcohol UseStandard Drinks/WeekCommentsYes0 (1 standard drink = 0.6 oz pure alcohol)socialCRYSTAL CLINIC OR[facility] UtilitiesAnswerDate RecordedIn the past 12 months has the [employer], [employer], oil, or water [employer] threatened to shut off services in your home?No07/07/2023Hunger Vital SignAnswerDate RecordedWithin the past 12 months, you worried that your food would run out before you got the money to buymore. Never true07/07/2023Within the past 12 months, the food you bought just didn't last and you didn't have money to get more.Never true07/07/2023RAPARE - TransportationAnswerDate RecordedIn the past 12 months, has lack of transportation kept you from medical appointments or from getting medications?No 07/07/2023In the past 12 months, has lack of transportation kept you from meetings, work, or from getting things needed for daily living?No07/07/2023 Housing Stability Vital SignAnswerDate RecordedIn the last 12 months, was there a time when you were not able to pay the mortgage or rent on time?No07/07/2023In the last 12 months, how many places have you lived?In the last 12 months, was there a time when you did not have a steady place to sleep or slept in ashelter (including now)?No07/07/2023CommentsUnknownSex and Gender InformationValueDate RecordedSex Assigned at BirthNot on fileLegal SexFemale 04/17/2023 9:52 AM ESTGender IdentityNot on fileSexual OrientationNot on file Last Filed Vital Signs Vital SignReadingTime TakenCommentsBlood Eyhfayfq246/53007/08/2023 3:34 PM EST Pcuid4772/06/2024 3:34 PM SXMPkcpyrdqpmp57.1 ??C (97 ??F)11/26/2023 2:08 PM EDT Respiratory Tizk030307/08/2023 3:34 PM ESTOxygen Bvgkdjsodu50%2023 3:34 PM ESTInhaled Oxygen Concentration--Pytjmx90.2 kg (168 lb)07/14/2024 1:15 PM EDT Xaecoo234.1 cm (5' 5 )07/14/2024 1:15 PM EDTBody Mass Index27.9607/14/2024 1:15 PM EDT Plan of Treatment Health MaintenanceDue DateLast DoneCommentsDEXA SCAN NNTEXUSSIZ26/06/1946 HEPATITIS C VIRUS GAEXJIVDV55/06/6656ORENFKN86/06/1946TDAP (ADULT)07/07/1966 CERVICAL CANCER SCREENING GGEVAFBCKC73/06/1969COLORECTAL CANCER SCREENING QZAIFGLUCS76/06/1993ZOSTER (SHINGLES) VACCINE (1 of 2)07/07/1997POTASSIUM 5007/08/2023, 06/25/2023MAMMOGRAM SCREENING EPEZIDMXUO56/29/2025 09/30/2023, 09/27/2022, 09/27/2021, Additional history existsCOVID-19 VACCINE ( season), 02/10/2023, 08/13/2021, Additional history existsINFLUENZA VACCINE (#1), 02/10/2023, 02/01/2022, Additional history existsPNEUMOCOCCAL VACCINE SERIESCompleted 01/05/2018, 02/17/2017, 02/05/2017RSV LQUMWOBRlyzwgebp45/10/2023HEP B VACCINE Aged OutNo longer eligible based on patient's age to complete this topic Medical Devices ImplantedTypeAreaManufacturerDevice IdentifierShelf Expiration DateModel / Serial / LotAnchors, 5.5 Non Punching - [id number] Implanted:Qty: 1 on 07/07/2023 by Miko Pascual MD at [facility]: Hip HIST [id number]/30/[id number]-[id number] / / [id number], 5.5 Non Punching - [id number] Implanted:Qty: 3 on 07/07/2023 by Miko Pascual MD at [facility]: Hip HIST [id number]/31/[id number]-[id number] / / [id number] Procedures Procedure NamePriorityDate/TimeAssociated DiagnosisCommentsBASIC METABOLIC PANEL Today2023 4:48 AM EST from Last 3 Months or Most Recently Relevant to Health Maintenance Results * (ABNORMAL) BASIC METABOLIC PANEL (2023 4:48 AM EST)ComponentValueRef RangeTest MethodAnalysis TimePerformed AtPathologist GjezworhfGxknwhh531(H)70 - 100 MG/DL[address]Comment: NORMAL <100 mg/dL PREDIABETES 101-126 mg/dL DIABETES 126 mg/dL or higher BUN30(H)7 - 20 MG/DL[address] CREATININE SERUM1.100.70 - 1.20 MG/DL[address]SODIUM134(L)137 - 145 MMOL/[address]assium3.83.5 - 5.1 MMOL/LON[address]CHLORIDE10398 - 107 MMOL/[address]Comment:Please note: Triglyceride levels of 600mg/dL or higher may positively bias chloride results by approximately 2.1 mmolCARBON DIOXIDE (CO2)3022 - 30 MMOL/[address] FCP2KVRD/[address]CALCIUM8.78.4 - 10.2 MG/DL[address]ESTIMATED GFR, NON ZXPE03jf/min/1.73sq.[address]ESTIMATED GFR, 62ml/min/1.73sq.[address]GFR COMMENTAverage GFR for 70+ years old = 75.[address]Comment: Chronic Kidney disease, GFR = <60. Kidney failure, GFR = <15. The GFR estimate is not adjusted for extreme body surface area or acute process, nor has it been validated for women or ethnic groups other than and . Specimen (Source)Anatomical Location / LateralityCollection Method / Volume Collection TimeReceived DlnmEhhce18/06/2024 4:48 AM EST2023 5:12 AM EST Narrative Authorizing ProviderResult TypeResult StatusAdam Barbara Mahoney MDCHEMISTRY ORDERABLES Final ResultPerforming OrganizationAddressCity/State/ZIP CodePhone Number [address] [address] from Last 3 Months or Most Recently Relevant to Health Maintenance Insurance Advance Directives For more information, please contact: [phone] (7:30 AM - 6PM [facility], Thursday-Thursday) TypeDate RecordedPatient RepresentativeExplanationAdvance Directives/Living Will 06/25/2023 9:17 AMDURABLE POWER OF GYMNASIUM TEACHER FOR HEALTHCARE 06/25/23Advance Directives/Living Will06/25/2023 9:13 AMLIVING WILL 06/25/23 * Full Code (Latest Code Status on File) Date ActivatedDate InactivatedComments07/07/2023 3:27 PM Care Teams Team MemberRelationshipSpecialtyStart DateEnd Date Marine Glass MD PCP - GeneralFamily Medicine05/11/23
--- OUTSIDE RECORDS SUMMARY | 2025-03-13 20:52 | XMS_ITS | Clinical Summary ---
Author Organization [facility] Address [address] [facility] [address], [address] [place] [address] Care Team Providers Care Travel Rn Or Name Role Phone Marine Glass MD Primary Care Provider [phone] Allergies Active AllergyReactionsCriticalityNoted DejyVcfujndwQrbrfrq47/26/2019 Levofloxacin In D5w11/26/20188088Kmcdqfbn01/26/3133Gaqgdeopncv32/26/2019Tramadol Hcl 11/26/2018Hydrocodone-Vspuxycadduxb15/26/2019 Medications MedicationSigDispense QuantityRefillsLast FilledStart DateEnd DateStatus temazepam (RESTORIL) 30 MG capsule Take 30 mg by mouth nightly as needed for Sleep.Active cycloSPORINE (RESTASIS) 0.05 % ophthalmic emulsion 1 drop 2 times dailyActive omeprazole (PRILOSEC) 40 MG delayed release capsule Take 40 mg by mouth dailyActive apixaban (ELIQUIS) 5 MG TABS tablet Take by mouth 2 times dailyActive flecainide (TAMBOCOR) 100 MG tablet Take 100 mg by mouth 2 times dailyActive atenolol (TENORMIN) 25 MG tablet Take 25 mg by mouth dailyActive losartan (COZAAR) 100 MG tablet Take 100 mg by mouth dailyActive lidocaine (LMX) 4 % cream Indications:Lumbosacral spondylosis without myelopathyApply a half dollar sized amount to intact skin topically up to twice daily as needed for pain 1 Tube Active gabapentin (NEURONTIN) 300 MG capsule Indications:Lumbosacral spondylosis without myelopathy,Lumbar radiculopathyTake 1 capsule by mouth every evening for 90 days. 90 capsule 01/13/2019Active naloxone (NARCAN) 4 MG/0.1ML LIQD nasal spray Indications:Lumbosacral spondylosis without myelopathy1 spray by Nasal route as needed for Opioid Reversal 1 each 11/10/2019Active lidocaine (LMX) 4 % cream Indications:Skin painApply a half dollar sized amount to intact skin topically up to twice daily as needed for pain 1 Tube Active Lidocaine (ZTLIDO) 1.8 % PTCH Indications:Skin painApply 1 patch topically daily 30 patch 12/09/2019Active Active Problems No known active problems Family History Medical HistoryRelationNameCommentsCancerFatherArthritisMotherCancerMother RelationNameStatusCommentsFatherMother Social History Tobacco UseTypesPacks/DayYears UsedDateSmoking Tobacco: FormerSmokeless Tobacco: NeverCommentsUnknownSex and Gender InformationValueDate RecordedSex Assigned at BirthNot on fileLegal WjfXziwhl44/17/2019 11:48 AM EDTGender IdentityNot on fileSexual OrientationNot on file Last Filed Vital Signs Vital SignReadingTime TakenCommentsBlood Pressure--Pulse--Sdtkpvshoor15.3 ??C (97.3 ??F)12/09/2019 3:38 PM EDTRespiratory Leno933305/25/2019 11:33 AM ESTOxygen Saturation--Inhaled Oxygen Concentration--Mwxrsk59.4 kg (175 lb)12/09/2019 3:38 PM INCHxjoep287.1 cm (5' 5 )12/09/2019 3:38 PM EDTBody Mass Index29.1208 3:38 PM EDT Plan of Treatment Not on file Care Teams Team MemberRelationshipSpecialtyStart DateEnd Date Marine Glass MD PCP - GeneralFamily Medicine10/19/18
--- OUTSIDE RECORDS SUMMARY | 2025-03-13 20:52 | XMS_ITS | Clinical Summary ---
Author Organization [facility] Address [address] [place] [address] Care Team Providers Care Hoisting Pile Driving Engineer Name Role Phone Marine Glass MD Primary Care Provider [phone] Allergies Active AllergyReactionsCriticalityNoted AcfwAgalvskxRqdnmjjhSthhNlh35/12/2023 BsoqqpoHcacqox85/12/2023Hydrocodone-WaxzlfhzdykigScqzCuy77/12/2023Levofloxacin SyofFdm4709/12/20220598Zthoulie04/12/2023 Other Reaction(s): Unknown BneiulobxhdCwawrrb75/12/9676WftyquiiEbaiDba55/12/2023 Medications MedicationSigDispense QuantityRefillsLast FilledStart DateEnd DateStatus Multiple Vitamin (MULTIVITAMIN ADULT PO) Active Melatonin 10 MG capsule Active lisinopril (Prinivil) 20 MG tablet Take 20 mg by mouth DailyActive hydroCHLOROthiazide (HYDRODiuril) 25 MG tablet Take 25 mg by mouth DailyActive clindamycin (Cleocin) 300 MG capsule every 8 (eight) hours01/03/2022ctive atenolol (Tenormin) 50 MG tablet Take 25 mg by mouth Daily04/11/2009ctive apixaban (Eliquis) 5 MG tablet Take 5 mg by mouth in the morning and 5 mg before bedtime.Active naproxen sodium (Aleve) 220 MG tablet Take 220 mg by mouth as needed in the morning and 220 mg as needed in the evening.Active omeprazole OTC (PriLOSEC OTC) 20 MG EC tablet Take 20 mg by mouth in the morning. Take before meals.Active oxybutynin XL (Ditropan-XL) 5 MG 24 hr tablet Take 5 mg by mouth Daily Do not crush, chew, or split.Active temazepam (Restoril) 22.5 MG capsule Take 30 mg by mouth as needed at bedtime for sleepActive potassium chloride CR (Klor-Con M10) 10 MEQ ER tablet Take 10 mEq by mouth Daily Do not crush or chew.Active ferrous sulfate 325 (65 Fe) MG tablet Take 325 mg by mouth in the morning. Take with meals.Active Active Problems ProblemNoted DateDiagnosed DateAntalgic gait3DDD (degenerative disc disease), gnyufipmeix37/12/2023History of right hip qnfcwukekxs52/12/2023 Internal derangement of left knee09/12/2022Internal derangement of right /12/2023Lumbago with sciatica, left side09/12/2022Lumbago with sciatica, right side09/12/2022Sciatica, right side09/12/2022Other chronic pain 09/12/2022 Encounters DateTypeDepartmentCare HocaMobmikmrknp05/26/2025 10:00 AM EDTOffice Visit [facility] [address] [place] [phone] Karen Espinal MD Seborrheic keratosis, inflamed (Primary Dx); Inflamed skin tag; Milia12/27/2024amboo flowsheet [facility] [address] [place] [address] Karen Espinal MD 12/27/2024Travelfrom Last 3 Months Family History Medical HistoryRelationNameCommentsCancerFatherCancerMotherMelanomaSister RelationNameStatusCommentsFatherDeceasedMotherDeceasedSister Social History Tobacco UseTypesPacks/DayYears UsedDateSmoking Tobacco: FormerCigarettes Tobacco Cessation:Counseling Given: Not Answered Alcohol UseStandard Drinks/WeekCommentsYes0 (1 standard drink = 0.6 oz pure alcohol)Alcohol: 1-2 drinks occasionally. Caffeine: sodaCommentsUnknown Sex and Gender InformationValueDate RecordedSex Assigned at BirthFemale 09/23/2022 8:37 AM EDTLegal FcvOsicjo78/15/2023 6:46 PM EDTGender IdentityFemale 09/23/2022 8:37 AM EDTSexual OrientationNot on file Last Filed Vital Signs Vital SignReadingTime TakenCommentsBlood Woqgzhtr202/8604 12:00 PM EDT Pulse--Temperature--Respiratory Rate--Oxygen Saturation--Inhaled Oxygen Concentration--Cksqcd50.1 kg (170 lb)09/30/2022 4:09 PM HZYKydqae551.6 cm (5' 6 )09/30/2022 4:09 PM EDTBody Mass Index27.44009/30/2022 4:09 PM EDT Plan of Treatment Health MaintenanceDue DateLast DoneCommentsCOVID-19 Vaccine ( season) , 02/10/2023, 08/13/2021, Additional history existsInfluenza Vaccine (#1), 02/10/2023, 02/01/2022, Additional history existsPneumococcal Vaccine: 65+ RqtggVpvdglzmn50/04/2018, 02/17/2017, 02/05/2017 Procedures Procedure NamePriorityDate/TimeAssociated DiagnosisCommentsCRYOTHERAPY SKIN HDFHCEGlmmjpj07/26/2025 10:22 AM EDT Seborrheic keratosis, inflamed from Last 3 Months Results * Cryotherapy, skin lesion (12/27/2024 10:22 AM EDT) Narrative Authorizing ProviderResult TypeResult StatusEmily A Petitti MDDERM PROCEDURE ORDERABLESFinal Result from Last 3 Months Insurance Care Teams Team MemberRelationshipSpecialtyStart DateEnd Date Marine Glass MD PCP - GeneralFamily Medicine09/26/22
--- OUTSIDE RECORDS SUMMARY | 2025-03-13 20:52 | XMS_ITS | Clinical Summary ---
Author Organization idiag s tem Address [id number] [address] [place] [address] Care Team Providers Care Radiology Physician Name Role Phone Marine Glass MD Primary Care Provider [phone] Allergies Active AllergyReactionsCriticalityNoted GxriCnvieveqIpjnixllNhfamq33/02/2023 Other reaction(s): Blister CodeineItching,VingRhq9403/19/2017 With all narcotics except Demerol LevofloxacinItching,PmeqWbd2203/19/2017BaclofenItching,AsyzPll0603/19/2017Morphine Hives11/30/2016Penicillin G Benzathin,Bpjfsnh2307/03/2022enicillinsRash,HivesLow 12/03/20154752Bzxsfkbvf25/02/0482Qqcefaotbxco01/02/8281IiacwpuxTkeuemjNff35/11/2020 Hydrocodone-AcetaminophenItching,PextJar4403/19/20179188Xzeqtijx26/02/2023 Medications MedicationSigDispense QuantityRefillsLast FilledStart DateEnd DateStatus lisinopriL (PRINIVIL,ZESTRIL) 20 mg tablet Take 1 tablet (20 mg total) by mouth in the morning.Active omeprazole (PriLOSEC) 20 mg capsule Take 1 capsule (20 mg total) by mouth in the morning.Active naproxen sodium (ALEVE) 220 mg tablet Take 1 tablet (220 mg total) by mouth as needed for pain.Active NON FORMULARY Med Name:Neuveria vitamin 1 qdActive trospium (SANCTURA) 20 mg tablet Take 1 tablet (20 mg total) by mouth in the morning and 1 tablet (20 mg total) before bedtime.Active vitamins A,C,D-howm-dmciyw (ICAPS AREDS) 4,296 mcg-226 mg-90 mg capsule Take 1 capsule by mouth in the morning and 1 capsule before bedtime.10/28/2023 Active ELIQUIS 5 mg tablet Indications:Paroxysmal atrial fibrillation (CMS-HCC)TAKE 1 TABLET TWICE A DAY (NEED ALL ANNUAL LABS DRAWN FOR FURTHER REFILLS, 08/10/24) 180 tablet 5Active potassium chloride (K-TAB,KLOR-CON) 10 MEQ CR tablet TAKE 1 TABLET IN THE MORNING 90 tablet 5Active flecainide (TAMBOCOR) 50 mg tablet Indications:Paroxysmal atrial fibrillation (CMS-HCC)TAKE 1 TABLET IN THE MORNING AND 1 TABLET BEFORE BEDTIME 180 tablet 5Active hydroCHLOROthiazide (HYDRODIURIL) 25 mg tablet TAKE 1 TABLET DAILY 90 tablet 5Active metoprolol succinate XL (TOPROL XL) 25 mg 24 hr tablet Take 0.5 tablets (12.5 mg total) by mouth in the morning. 15 tablet 1115Active atenoloL (TENORMIN) 50 mg tablet TAKE ONE AND ONE-HALF TABLETS IN THE MORNING 135 tablet 51Discontinued Active Problems ProblemNoted DateDiagnosed RmbcNhicwbafqsn50/23/2025Abnormal findings diagnostic imaging of heart and coronary ieklsrrndiz58/28/2022 Overview (07/29/2021): Added automatically from request for surgery [id number] Giiqrmo1006/30/2018 Overview (06/30/2018): Added automatically from request for surgery [id number] Ixnetdeuzhcf33/27/2019 Overview (06/30/2018): Added automatically from request for surgery [id number] SOB (shortness of breath)05/12/20183611Igqptrhqqsuw82/05/2018Paroxysmal atrial bytzbttzmvdl57/30/2018 Resolved Problems ProblemNoted DateDiagnosed DateResolved DatePreoperative zlkhjddet51/28/2023 11/08/2024Unstable / Overview (07/29/2021): Added automatically from request for surgery [id number] SOB (shortness of breath)VT (supraventricular tachycardia) Encounters DateTypeDepartmentCare SmfiOwlkaamsljq46/10/2025Orders Only [facility] [address] [place] [address] External, Scanning Provider 03/06/2025Orders Only [facility] [address] [place] [address] External, Scanning Provider 03/06/2025Telephone [facility] [address] [place] [address] Sonya Baker RN Event Monitor Alert02/23/2025 2:45 PM EDTOffice Visit [facility] [address] [place], [place] [phone] Joshua Zhu MD SOB (shortness of breath) (Primary Dx); Syncope, unspecified syncope type; Bradycardia; Paroxysmal atrial fibrillation ([facility])02/23/2025 10:00 AM EDTAncillary Procedure [facility] [address] [place] [phone] SOB (shortness of breath); Fhwmkbgjexj94/22/3171Gijrzi32/22/2025Telephone [facility] [address] [place] [phone] Radha Cloud CMA 02/21/20258142Cetmqd95/16/2025Orders Only [facility] [address] [place] [phone] External, Scanning Provider 02/06/2025Orders Only [facility] [address] [place] [phone] External, Scanning Provider 01/31/2025Refill [facility] [address] [place] [phone] Jovita Hernandez, REGULATORY MANAGER-MEDICAL OFFICE REP Med Ncrlgz4301/17/2025Refill [facility] [address] [place] [address] Jovita Hernandez, REGULATORY MANAGER-MEDICAL OFFICE REP Med Ykwhtd0412/27/2024Refill [facility] [address] [place] [address] Divine Kaur, REGULATORY MANAGER-MEDICAL OFFICE REP Med Refillfrom Last 3 Months Family History Medical HistoryRelationNameCommentsProstate cancerBrother 1Thomas Sarai Prostate cancerBrother 2Thomas MeachamCancerFatherWilliam MeachamLung cancer FatherWilliam MeachamArthritisMotherFlorence MeachamCancerMotherFlorence Sarai Colon cancerMotherFlorence MeachamBreast cancerNieceArrhythmiaSister 1Marcia SbernaColon cancerSister 1Marcia SbernaParkinsonsParkinsonismSister 1Marcia SbernaColon cancerSister 3Marcia SbernaParkinsonsRelationNameStatusComments Brother 1Thomas MeachamAliveBrother 2Thomas MeachamAliveFatherWilliam [place] DeceasedMotherFlorence MeachamDeceasedNieceOtherSister 1Marcia SbernaSister 2 MarciaS ernaAliveSister 3Marcia SbernaAlive Social History Tobacco UseTypesPacks/DayYears UsedDateSmoking Tobacco: FormerCigarettesQuit: 05/06/1989mokeless Tobacco: Never Tobacco Cessation:Counseling Given: Not Answered Comments:quit in 1989 Alcohol UseStandard Drinks/WeekCommentsYes0 (1 standard drink = 0.6 oz pure alcohol)socialPHQ-2AnswerDate RecordedTotal Kzird69306/25/2019AUDIT-CAnswerDate RecordedQ1: How often do you have a drink containing alcohol?Monthly or less 02/23/2025Q2: How many drinks containing alcohol do you have on a typical day when you are drinking?1 or Q3: How often do you have six or more drinks on one occasion?Never5ChildcareAnswerDate RecordedChildcare Tvthtqo8510/05/2018EmploymentAnswerDate UjkhfgozZvbmwemxdbQcbvcdo06/04/2019Hunger ScreeningAnswerDate RecordedWithin the past 12 months we worried whether our food would run out before we got money to buy more.Never True02/23/2025Within the past 12 months the food we bought just didn't last and we didn't have money to get more.Never True02/23/2025Purpose - LifeAnswerDate RecordedPurpose and direction in sjsgZgzhseb24/12/2021CommentsNoSex and Gender Information ValueDate RecordedSex Assigned at IwtchBxjkfu66/06/2019 11:19 AM ESTLegal Sex Xvuwpa2912/07/2014 11:36 AM EDTGender IwtvijdyZeffmw34/06/2019 11:19 AM ESTSexual OrientationNot on file Last Filed Vital Signs Vital SignReadingTime TakenCommentsBlood Crjonrpc718/801 2:32 PM EDT Kljpl396002/23/2025 2:32 PM QVBWlsoyzzmqxh10.6 ??C (97.9 ??F)05/16/2020 9:10 AM ESTRespiratory Stco374807/15/2023 2:12 PM EDTOxygen Eyejrjnqkw42%02/23/2025 2:32 PM EDTInhaled Oxygen Concentration--Shjcsa95.8 kg (176 lb)02/23/2025 2:32 PM EDT Dlvmej051.1 cm (5' 5 )02/23/2025 2:32 PM EDTBody Mass Index29.291 2:32 PM EDT Plan of Treatment DateTypeDepartmentCare Team (Latest Contact Info)Nskojzgvicp25/29/2025 3:30 PM ESTOffice Visit [facility] [address] [place] [address] Oscar Sandoval MD [address] [place] [address] Health MaintenanceDue DateLast DoneCommentsDepression Agazzobqz07/06/1960 DTaP,Tdap and Td Vaccines (1 - Tdap)07/07/1966Fall Risk Rtrkmzyyp59/06/2013 Wcfwetwfccf70, 08/18/2012Zoster (Shingles) Vaccine (2 of 2) OVID-19 Vaccine ( - season), 02/08/2024, 02/10/2023, Additional history existsTobacco Fxowlhpfo09/08/2026 11/08/2024RSV ( or age 60+ yrs)Wjnmciodv68/10/2023Influenza Vaccine Oslizgxbw39/18/2025, 02/08/2024, 02/10/2023, Additional history exists Medical Devices Not on file Procedures Procedure NamePriorityDate/TimeAssociated DiagnosisCommentsEVENT MONITORRoutine 03/09/2025 11:25 AM ESTEVENT COQMSGTMikdlns59/04/2025 11:23 AM ESTEVENT MONITOR Nlgvcth5503/01/2025 1:01 PM EDTECG, HOSPITAL REPORT IZIZMrwigbg09/23/2025 SOB (shortness of breath) Syncope, unspecified syncope type MULTIPLE VGTRYtbsdwx41/03/2025 2:48 PM EDTECG 12-ZIWUTiydqdv26/28/2025 8:46 AM EDTHM OOKFTKNWZHANeggtus25/17/2013 from Last 3 Months or Most Recently Relevant to Health Maintenance Results * Event monitor (03/09/2025 11:25 AM EST)Anatomical RegionLateralityModality ChestN/AOther Narrative Authorizing ProviderResult TypeResult StatusScanning Provider ExternalCV CARDIAC SERVICES ORDERABLESFinal Result * Event monitor (03/07/2025 11:23 AM EST)Anatomical RegionLateralityModality ChestN/AOther Narrative Authorizing ProviderResult TypeResult StatusScanning Provider ExternalCV CARDIAC SERVICES ORDERABLESFinal Result * Event monitor (03/01/2025 1:01 PM EDT)Anatomical RegionLateralityModalityChest N/AOther Narrative Authorizing ProviderResult TypeResult StatusScanning Provider ExternalCV CARDIAC SERVICES ORDERABLESFinal Result * ECG, Hospital Report Scan (02/23/2025)Specimen (Source)Anatomical Location / LateralityCollection Method / VolumeCollection TimeReceived Time02/23/2025 Narrative Authorizing ProviderResult TypeResult StatusRonak B Marko MDECG ORDERABLESFinal ResultPerforming OrganizationAddressCity/State/ZIP CodePhone Number MANUALLY TRANSCRIBED RESULTS * Multiple labs (02/03/2025 2:48 PM EDT) Narrative Authorizing ProviderResult TypeResult StatusScanning Provider ExternalPR IMAGING Final ResultPerforming OrganizationAddressCity/State/ZIP CodePhone Number MANUALLY TRANSCRIBED RESULTS * ECG 12 lead (01/29/2025 8:46 AM EDT) Narrative Authorizing ProviderResult TypeResult StatusScanning Provider ExternalECG ORDERABLESFinal ResultPerforming OrganizationAddressCity/State/ZIP CodePhone Number MANUALLY TRANSCRIBED RESULTS * COLONOSCOPY (08/18/2012)ComponentValueRef RangeTest MethodAnalysis Time Performed AtPathologist SignatureHM ColonoscopyCOLONOSCOPYEHS EXTERNAL NON- INTERFACED REF LAB Narrative Authorizing ProviderResult TypeResult StatusScanning Provider ExternalHEALTH MAINTENANCEFinal ResultPerforming OrganizationAddressCity/State/ZIP CodePhone Number [facility] EXTERNAL NON-INTERFACED REF LAB [address] [facility] [place] [address] from Last 3 Months or Most Recently Relevant to Health Maintenance Insurance Advance Directives TypeDate RecordedPatient RepresentativeExplanationLiving Will05/21/2020 9:37 AM Durable Power of Attorney05/21/2020 9:27 AMDurable Power of Attorney05/16/2020 6:05 AMLiving Will05/16/2020 6:04 AM NameRelationshipHealthcare Agent RelationshipCommunicationJoseph FraileySpouse Health Care Agent* Samantha Lester Alternate Health Care Agent* Care Teams Team MemberRelationshipSpecialtyStart DateEnd Date Marine Glass MD [address] [place] [address] [facility]07/15/23
--- OUTSIDE RECORDS SUMMARY | 2025-03-13 20:52 | XMS_ITS | Clinical Summary ---
Author Organization [facility] Address [address] [place] [address] Care Team Providers Care Circuit Design Engineer Name Role Phone Marine Glass MD Primary Care Provider [phone] Allergies Active AllergyReactionsCriticalityNoted XbuoSjhqbcevUddskmacPpfgmhy04/16/2017 MfsrlkbGauwjcp92/16/2017Hydrocodone-MuvmfwdnhvrtrQdqjxux76/16/2017Levofloxacin Omfyuhs6603/19/20171397IgnnmyhgQbqyq77/01/4399VgpurpxtbMyatv15/01/2016PenicillinsHives 12/03/2015 Medications MedicationSigDispense QuantityRefillsLast FilledStart DateEnd DateStatus Omeprazole (PRILOSEC) 40 mg capsule Take 20 mg by mouth twice daily. Active potassium chloride (KLOR-CON 10) 10 mEq tablet Take 10 mEq by mouth once daily.Active SUMAtriptan (IMITREX) 25 mg tablet Take 25 mg by mouth as needed. 09/12/2016Active apixaban (ELIQUIS) 5 mg tab(s) Take 5 mg by mouth twice daily. 08/31/2017Active atenolol (TENORMIN) 50 mg tablet 25 mg twice daily. 08/31/2017Active LORazepam (ATIVAN) 1 mg tablet Take 1 mg by mouth.Active flecainide (TAMBOCOR) 100 mg tablet Take 100 mg by mouth.10/06/2017Active temazepam (RESTORIL) 30 mg cap Active losartan-hydrochlorothiazide (HYZAAR) 100-25 mg per tablet 07/28/2018Active meperidine (DEMEROL) 50 mg tablet Take 25 mg by mouth as needed.Active lisinopril (ZESTRIL, PRINIVIL) 20 mg tablet 02/22/2019Active XIIDRA 5 % dpet 03/10/2019Active cyclobenzaprine (FLEXERIL) 10 mg tablet Take 10 mg by mouth twice daily as needed.Active Active Problems ProblemNoted DateDiagnosed DateChronic atrial zncsfdotjcbj64/21/2018History of breast xpuujn8309/23/2017Breast cancer of upper-outer quadrant of left female glovlc5112/06/2015Carcinoma in situ of left puodgj5612/03/2015 Encounters DateTypeDepartmentCare XaboMvyfgqoyxsv52/20/2025Results Follow-Up [facility] [address] [place] [address] Sara White RP 12/18/2024 8:17 PM EDT - 12/19/2024 1:18 AM [facility] Emergency Department [address] [place], [place] [id number] Govind Lopez DO Near syncope Discharge Disposition: Home12/18/2024Travelfrom Last 3 Months Immunizations ImmunizationAdministration DatesNext DueCOVID-19 original vaccine, age 12+ yr, monovalent (PFIZER-BIONTECH - PURPLE TOP)06/20/2020,05/18/2020influenza (HD- IIV3) vaccine, age 65+ yr, high dose, trivalent, PF (FLUZONE HIGH-DOSE) 01/20/2019,01/05/2018pneumococcal polysaccharide (PPV23) vaccine, 23 valent (PNEUMOVAX 23)01/05/2018 Family History Medical HistoryRelationCommentsCancerBrotherProstate;64CancerFatherLungCancer Mothercolon; 72, Stomach ca; 65, biliary; 83Breast CancerOther 1niece dx 44 Breast CancerOther 2great niece dx 30CancerSistercolon, liver, melanoma, pancreatic 71 (MSH2 del exons 8-15)RelationStatusCommentsBrotherFatherMother Other 1Other 2Sister Social History Tobacco UseTypesPacks/DayYears UsedDateSmoking Tobacco: CtpjiqEwfzbzaswi068 12/05/1970 - 12/05/1990Smokeless Tobacco: NeverAlcohol UseStandard Drinks/Week CommentsYes0 (1 standard drink = 0.6 oz pure alcohol)PHQ-2AnswerDate Recorded PHQ-2 mecxl795Area Deprivation IndexAnswerDate RecordedNational Score (1-100), lower number is lower dfif222212/19/2024State Score (1-10), lower number is lower nuam503Data from: https://www.neighborhoodatlas.[facility]/. Last address used for [address] [address]/19/2024CommentsNoSex and Gender Information ValueDate RecordedSex Assigned at BirthNot on fileLegal LmrBrbntu37/02/2012 8:44 AM ESTGender IdentityNot on fileSexual OrientationNot on file Last Filed Vital Signs Vital SignReadingTime TakenCommentsBlood Owxlejab285/5508 12:59 AM EDT Sbgmv020512/19/2024 12:59 AM BWUEiyoxmufqej14.6 ??C (97.8 ??F)12/18/2024 8:19 PM EDTRespiratory Rhzt865612/19/2024 12:59 AM EDTOxygen Iefsdwmrnb02%12/19/2024 12:59 AM EDTInhaled Oxygen Concentration--Shpgad19 kg (172 lb)12/18/2024 8:19 PM EDT Qsafci535.1 cm (5' 5 )12/18/2024 8:19 PM EDTBody Mass Index28.62012/18/2024 8:19 PM EDT Plan of Treatment Health MaintenanceDue DateLast DoneCommentsAnxiety Kpgcmecfu58/06/1966Depression Lsedcyvcl57/06/1966DTaP,Tdap,Td Vaccine (1 - Tdap)07/07/1966Shingrix Vaccine (1 of 2)07/07/1997Bone Density Ancmmgsis10/06/2013dvance Directive Discussion 05/04/2024Medicare Advantage Annual Wellness Visit05/04/2024ovid-19 Vaccine ( season)/11/2023, 02/10/2023, 08/13/2021, Additional history existsInfluenza Vaccine (#1), 02/10/2023, 02/01/2022, Additional history existsDiabetes Xikhyqgti03/17/95238112/18/2024, 11/08/2024, 07/15/2023, Additional history existsPneumococcal Vaccine: 50+ Vfzgpqkaw01/04/2018, 02/17/2017, 02/05/2017, Additional history existsHepatitis C VevzjccsyEtvechhun66/20/2019RSV TnmzrqrUklyvblet72/10/2023Mammogram Screening Viklywqhfqfp17/29/2024, 09/27/2022, 09/27/2021, Additional history exists Procedures Procedure NamePriorityDate/TimeAssociated DiagnosisCommentsHIGH SENSITIVITY TROPONIN T (THIRD) 3 HRS AFTER ENRJMUPQQRG62/18/2025 12:29 AM EDT URINE PKGILUMIOXS70/18/2025 12:06 AM EDT URINALYSIS (WITH MICROSCOPIC) WITH CULTURE IF ZLSZBLIXNXPLB17/18/2025 12:06 AM EDT CTA CHEST (NONGATED) W IVCON ZJRGSV4012/18/2024 10:[address] BRAIN WO LUPPUYEQL02/17/2025 10:25 PM EDT HIGH SENSITIVITY TROPONIN T (SECOND)STAT12/18/2024 9:42 PM EDT XR CHEST 1V FRONTAL DHGOBLBZ97/17/2025 8:46 PM EDT PROTHROMBIN UEHAHAWB09/17/2025 8:39 PM EDT CBC + BAGJFGAJ74/17/2025 8:39 PM EDT NT PRO RAJBDLF0012/18/2024 8:39 PM EDT ALCOHOL/ETHANOL QKZFGPW7512/18/2024 8:39 PM EDT HIGH SENSITIVITY TROPONIN T (INITIAL)STAT12/18/2024 8:39 PM EDT CK CREATINE DGJKYIPBES58/17/2025 8:39 PM EDT LIPASE DAVQKXM9412/18/2024 8:39 PM EDT MAGNESIUM PIUNKDJ9812/18/2024 8:39 PM EDT COMPREHENSIVE METABOLIC PJQEIYNXV61/17/2025 8:39 PM EDT ECG TULTFBGTSJOG59/17/2025 8:29 PM QYPCMJQzrgdzq00/17/2025 8:27 PM EDT from Last 3 Months Results * (ABNORMAL) HIGH SENSITIVITY TROPONIN T (THIRD) 3 HRS AFTER INITIAL (12/19/2024 12:29 AM EDT)ComponentValueRef RangeTest MethodAnalysis TimePerformed At Pathologist SignatureTNT High Ernlngdgdos98(H)<12 ng/L12/19/2024 12:56 AM EDT [facility] LABORATORYSpecimen (Source)Anatomical Location / Laterality Collection Method / VolumeCollection TimeReceived TimeBloodBLOOD SPECIMEN / UnknownVenipuncture / Pyuhdos9112/19/2024 12:29 AM EDT12/19/2024 12:33 AM EDT Narrative Authorizing ProviderResult TypeResult StatusEric D Lopez DOLABORATORYFinal ResultPerforming OrganizationAddressCity/State/ZIP CodePhone Number [facility] [address] [facility] [place] [address], * (ABNORMAL) URINE CULTURE IF INDICATED (12/19/2024 12:06 AM EDT)ComponentValue Ref RangeTest MethodAnalysis TimePerformed AtPathologist SignatureCulture, UrineMixed microbiota, including predominantly:12/21/2024 7:40 AM EDTCCLEVELAND [facility] LABCulture, Urine>=100,000 CFU/ml Escherichia coli(A) MINIMUM INHIBITORY CONCENTRATION(VITEK) 12/21/2024 7:40 AM EDTCCLEVELAND CL[facility]IC [facility] LABSpecimen (Source) Anatomical Location / LateralityCollection Method / VolumeCollection Time Received TimeUrineMID-STREAM URINE SPECIMEN / UnknownNon Blood / Unknown 12/19/2024 12:06 AM EDT12/19/2024 12:12 AM EDT Narrative [facility] - 12/21/2024 7:40 AM EDT This test was developed and its performance characteristics determined by the [facility]'s [facility] [place] ([facility]). It has not been cleared or approved by the FDA. [facility] is regulated under CLIA as qualified to perform high-complexity testing. This test is used for clinical purposes. It should not be regarded as investigational or for research. OrganismAntibioticMethodSusceptibilityEscherichia coliAmpicillinMINIMUM INHIBITORY CONCENTRATION(VITEK) >=32: Resistant Escherichia coliCefazolinMINIMUM INHIBITORY CONCENTRATION(VITEK) <=4: Susceptible Comment:For uncomplicated urinary tract infections, cefazolin results can be used to predict susceptibilityor resistance to cephalexin.Escherichia coli CeftriaxoneMINIMUM INHIBITORY CONCENTRATION(VITEK) <=1: Susceptible Escherichia coliCefepimeMINIMUM INHIBITORY CONCENTRATION(VITEK) <=1: Susceptible Escherichia coliErtapenemMINIMUM INHIBITORY CONCENTRATION(VITEK) <=0.5: Susceptible Escherichia coliMeropenemMINIMUM INHIBITORY CONCENTRATION(VITEK) <=0.25: Susceptible Escherichia coliAmpicillin/SulbactMINIMUM INHIBITORY CONCENTRATION(VITEK) 16: Intermediate Escherichia coliPiperacillin/TazobacMINIMUM INHIBITORY CONCENTRATION(VITEK) <=4: Susceptible Escherichia coliGentamicinMINIMUM INHIBITORY CONCENTRATION(VITEK) >=16: Resistant Escherichia coliTobramycinMINIMUM INHIBITORY CONCENTRATION(VITEK) 4: Intermediate Escherichia coliAmikacinMINIMUM INHIBITORY CONCENTRATION(VITEK) <=2: Susceptible Escherichia coliTrimeth sulfamethMINIMUM INHIBITORY CONCENTRATION(VITEK) >=320: Resistant Escherichia coliCiprofloxacinMINIMUM INHIBITORY CONCENTRATION(VITEK) <=0.25: Susceptible Escherichia coliNitrofurantoinMINIMUM INHIBITORY CONCENTRATION(VITEK) <=16: Susceptible Authorizing ProviderResult TypeResult StatusEric Ballad HealthICROBIOLOGYFinal ResultPerforming OrganizationAddressCity/State/ZIP CodePhone Number [facility] [address] [facility] [address] [place] [id number], [place] * (ABNORMAL) URINALYSIS (WITH MICROSCOPIC) WITH CULTURE IF INDICATED (12/19/2024 12:06 AM EDT)ComponentValueRef RangeTest MethodAnalysis TimePerformed At Pathologist SignatureColorLight Vnaqkrkfusmt65/18/2025 12:22 AM [facility] LABORATORYClarityTurbid(A)Clear12/19/2024 12:22 AM [facility] LABORATORYGlucose, UrineNegativeTrace, Rqtwfmjd06/18/2025 12:22 AM [facility] LABORATORYBilirubin, UgscxRtjrmzbcMwwdbwht86/18/2025 12:22 AM [facility] LABORATORYKetones, UrineNegativeNegative, Trace12/19/2024 12:22 AM [facility] LABORATORYSpecific Jal, Ur1.0281.005 - 1.9114112/19/2024 12:22 AM [facility] LABORATORYHemoglobin/Blood,UrTraceNegative, Trace 12/19/2024 12:22 AM [facility] LABORATORYpH, Urine6.05.0 - 8.008 12:22 AM [facility]ORYProtein, UrineNegativeTrace, Negative 12/19/2024 12:22 AM [facility] LABORATORYUrobilinogenNormalNormal 12/19/2024 12:22 AM [facility] LABORATORYNitrites2+(A)Efmjsexx23/18/2025 12:22 AM [facility]ORATORYLeuk Cavcgade433 Felipe/uL(A)Negative, 25 Felipe/uL12/19/2024 12:22 AM [facility] LABORATORYWBC, Urine>25 /HPF(A)0-5 /HPF12/19/2024 12:22 AM [facility] LABORATORYRBC, Urine6-10 /HPF(A)0-3 /HPF12/19/2024 12:22 AM [facility] LABORATORYBacteriaRare(A)None Seen /HPF12/19/2024 12:22 AM [facility] LABORATORYSquamous Epithelial Cells Few/HPF12/19/2024 12:22 AM [facility] LABORATORYCasts, Hyaline1-3 /LPF (A)0 /LPF12/19/2024 12:22 AM [facility] LABORATORYSpecimen (Source) Anatomical Location / LateralityCollection Method / VolumeCollection Time Received TimeUrineMID-STREAM URINE SPECIMEN / UnknownNon Blood / Unknown 12/19/2024 12:06 AM EDT12/19/2024 12:12 AM EDT Narrative Authorizing ProviderResult TypeResult StatusEric D Lopez DOLABORATORYFinal ResultPerforming OrganizationAddressCity/State/ZIP CodePhone Number [facility] [address] [facility] [place] [address], [place] * CTA CHEST (NONGATED) W IVCON PE (12/18/2024 10:27 PM EDT)Anatomical Region LateralityModalityChestComputed TomographySpecimen (Source)Anatomical Location / LateralityCollection Method / VolumeCollection TimeReceived Time12/18/2024 10:27 PM EDT Impressions 12/19/2024 12:47 AM EDT IMPRESSION: 1. ??No CT evidence of pulmonary thromboembolism. 2. ??No acute pulmonary process. 3. ??Calcified granulomas and lymph nodes. Weaver Dobby Loom: SHIVANI ?? Transcribe Date/Time: Dec 19 2024 12:32A Dictated by : JASON HINKLE MD This examination was interpreted and the report reviewed and electronically signed by: JASON HINKLE MD on Dec 19 2024 12:45AM ??EST Narrative 12/19/2024 12:47 AM EDT * * *Final Report* * * DATE OF EXAM: Dec 18 2024 10:27PM ?? [facility] ?? 0564 ??- ??CTA CHEST (NON GATED) W IVCON PE ??/ PROCEDURE REASON: Pulmonary embolism (PE) suspected, high prob ? * * * * Physician Interpretation * * * * EXAMINATION: ??CHEST CTA (NON GATED) WITH CONTRAST (PULMONARY EMBOLISM PROTOCOL) Clinical History: Pulmonary embolism suspected, near syncope Technique: ??Spiral CT acquisition of the chest from the thoracic inlet to the upper abdomen following IV contrast. ??Axial 1 and 3 mm thick slices plus coronal and sagittal reformatted images. MQ: ??CTCP_5 Contrast: ??80 mL Omnipaque [address] Radiation dose: Integrated Dose-length product (DLP) for this visit = ?? 421 mGy*cm CT Dose Reduction Employed: Automated exposure control(AEC) and iterative recon CTA: Post-processed images (Maximum intensity Projection (MIP), Volume-rendered (VR), or Surface shaded display images (SSD) were created, reviewed and archived. Comparison: ??No relevant prior studies available. RESULT: Limitations: ??None. Evaluation for thromboembolic disease: ? - Right heart chambers: ??No thromboembolic disease. ? - Main pulmonary arteries: ??No thromboembolic disease. ? - Lobar pulmonary arteries: ??No thromboembolic disease. ? - Segmental pulmonary arteries: ??No thromboembolic disease. ? - Subsegmental pulmonary arteries: ??No thromboembolic disease. ? - Additional pulmonary artery findings: ??The main pulmonary artery is enlarged, as can be seen with pulmonary hypertension. Lines, tubes, and devices: ??None. Lung parenchyma and airways: No consolidation. ??Calcified 6 mm nodule at the lingula and a smaller one posteriorly near the left lung apex. ??No suspicious pulmonary nodule. The central airways are patent. Pleural space: ??No pleural effusion. ??No pleural thickening. Lower neck, lymph nodes, and mediastinum: ??The imaged thyroid gland is normal. ??Calcified mediastinal and left perihilar lymph nodes. ??No lymphadenopathy in the supraclavicular, axillary, mediastinal, or hilar regions. Heart, pericardium, and thoracic vessels: ??The thoracic aorta is normal in caliber. ??Mild cardiac enlargement. ??Atherosclerosis, including Coronary artery atherosclerotic calcifications are noted, although the study is not optimized for coronary assessment. No pericardial effusion or thickening. Bones and soft tissues: ??No acute or aggressive osseous process. Upper abdomen: ??No acute abnormality in the imaged upper abdomen. ?? Heterogeneous contents in the stomach. Localizer images: No additional findings. Procedure Note Provider, [facility] [place] - 12/19/2024 * * *Final Report* * * DATE OF EXAM: Dec 18 2024 10:27PM [facility] 0564 - CTA CHEST (NON [...] process. 3. Calcified granulomas and lymph nodes. Weaver Dobby Loom: SHIVANI Transcribe Date/Time: Dec 19 2024 12:32A Dictated by : JASON HINKLE MD This examination was interpreted and the report reviewed and electronically signed by: JASON HINKLE MD on Dec 19 2024 12:45AM EST Authorizing ProviderResult TypeResult StatusEric D Lopez DOCT-PAMAFinal Result * CT BRAIN WO IVCON (12/18/2024 10:25 PM EDT)Anatomical RegionLateralityModality HeadComputed TomographySpecimen (Source)Anatomical Location / Laterality Collection Method / VolumeCollection TimeReceived Time12/18/2024 10:24 PM EDT Impressions 12/19/2024 12:14 AM EDT IMPRESSION: Brain CT shows no evidence of an acute intracranial abnormality. Chronic intracranial changes and other details above. Weaver Dobby Loom: PSCB ?? Transcribe Date/Time: Dec 18 2024 11:53P Dictated by : LOVE VALENCIA MD This examination was interpreted and the report reviewed and electronically signed by: LOVE VALENCIA MD on Dec 19 2024 12:12AM ??EST Narrative 12/19/2024 12:14 AM EDT * * *Final Report* * * DATE OF EXAM: Dec 18 2024 10:24PM ?? [facility] ?? 0504 ??- ??CT BRAIN WO IVCON ?? / PROCEDURE REASON: dizziness ? * * * * Physician Interpretation * * * * EXAMINATION: ??CT BRAIN WO IVCON CLINICAL HISTORY: ??dizziness. TECHNIQUE: Routine CT of the brain without IV contrast. CT Dose-Length Product (DLP): 778 mGy*cm CT Dose Reduction Employed: Iterative recon; COMPARISON: None available. RESULT: Post-operative change: None. Acute change: ??No evidence of a sizable/large acute territorial brain infarct/parenchymal edema. ??MRI may be considered as a more sensitive modality if continued clinical concern/warranted. Hemorrhage: No evidence of acute intracranial hemorrhage. Mass Lesion / Mass Effect: There is no evidence of a sizable brain mass. ?? No significant mass effect or extra-axial fluid collection. Chronic (or likely chronic) changes, including brain parenchymal: Mild intracranial arterial wall calcifications. ??Dural calcifications. The cerebellar tonsils incidentally lie at or slightly below the level of foramen magnum. ??There may be a partially empty sella appearance, which would be nonspecific. Small cystic changes/lacunar infarctions in the LEFT greater than RIGHT frontal parietal white matter. ?? Scattered patchy hypodense supratentorial white matter foci are nonspecific, but most commonly on the basis of mild microvascular ischemia. Mild generalized cerebral volume loss. Ventricles: Commensurate with sulcal sizes. ??No hydrocephalus. Visualized paranasal sinuses: Partially imaged. ?? Scattered mild mucosal thickening. ?? Small opacities of probable mucosal retention cyst(s) and/or polyp(s). Other: ?? No depressed skull fracture is seen. Education And Outreach Coordinator (topogram) images: Degenerative spine changes noted. ?? Non-diagnostic otherwise. Procedure Note Provider, [facility] [place] - 12/19/2024 * * *Final Report* * * DATE OF EXAM: Dec 18 2024 10:24PM [facility] 0504 - CT BRAIN WO [...] Other: No depressed skull fracture is seen. Education And Outreach Coordinator (topogram) images: Degenerative spine changes noted. Non-diagnostic otherwise. IMPRESSION IMPRESSION: Brain CT shows no evidence of an acute intracranial abnormality. Chronic intracranial changes and other details above. Weaver Dobby Loom: SHIVANI Transcribe Date/Time: Dec 18 2024 11:53P Dictated by : LOVE VALENCIA MD This examination was interpreted and the report reviewed and electronically signed by: LOVE VALENCIA MD on Dec 19 2024 12:12AM EST Authorizing ProviderResult TypeResult StatusEric Evie Lopez DOCT-PAMAFinal Result * (ABNORMAL) HIGH SENSITIVITY TROPONIN T (SECOND) (12/18/2024 9:42 PM EDT) ComponentValueRef RangeTest MethodAnalysis TimePerformed AtPathologist SignatureTNT High Qzciqrrsuui76(H)<12 ng/L12/18/2024 10:13 PM [facility] LABORATORYSpecimen (Source)Anatomical Location / LateralityCollection Method / VolumeCollection TimeReceived TimeBloodBLOOD SPECIMEN / UnknownVenipuncture / Rtiqvve0512/18/2024 9:42 PM EDT12/18/2024 9:46 PM EDT Narrative Authorizing ProviderResult TypeResult StatusEric Evie Lopez DOLABORATORYFinal ResultPerforming OrganizationAddressCity/State/ZIP CodePhone Number [facility] [address] [place] [address], [place] * XR CHEST 1V FRONTAL PORT (12/18/2024 8:46 PM EDT)Anatomical RegionLaterality ModalityChestRadiographic ImagingSpecimen (Source)Anatomical Location / LateralityCollection Method / VolumeCollection TimeReceived Time12/18/2024 8:46 PM EDT Impressions 12/18/2024 8:58 PM EDT IMPRESSION: Chronic changes as described above with no definite acute disease. Weaver Dobby Loom: SHIVANI ?? Transcribe Date/Time: Dec 18 2024 ??8:55P Dictated by : KATRIN PHILIP MD This examination was interpreted and the report reviewed and electronically signed by: KATRIN PHILIP MD on Dec 18 2024 ??8:56PM ??EST Narrative 12/18/2024 8:58 PM EDT * * *Final Report* * * DATE OF EXAM: Dec 18 2024 ??8:46PM ?? [facility] ?? 5376 ??- ??XR CHEST 1V FRONTAL PORT ??/ PROCEDURE REASON: Shortness of breath ? * * * * Physician Interpretation * * * * EXAMINATION: ??CHEST RADIOGRAPH (PORTABLE SINGLE VIEW AP) Exam Date/Time: ??12/18/2024 8:46 PM CLINICAL HISTORY: Shortness of breath MQ: ??XCPR_5 Comparison: ??None. RESULT: Lines, tubes, and devices: ??None. Lungs and pleura: ??There is hypoinflation of the lungs with crowded lung markings in the left retrocardiac region and no definite infiltrate or pleural effusion. Cardiomediastinal silhouette: ??There is mild cardiomegaly. Other: ??The patient is status post left breast/axillary surgery. Procedure Note Provider, [facility] - 12/18/2024 * * *Final Report* * [...] described above with no definite acute disease. Weaver Dobby Loom: PSCB Transcribe Date/Time: Dec 18 2024 8:55P Dictated by : KATRIN PHILIP MD This examination was interpreted and the report reviewed and electronically signed by: KATRIN PHILIP MD on Dec 18 2024 8:56PM EST Authorizing ProviderResult TypeResult StatusEric D Lopez DORAD-PAMAFinal Result * MAGNESIUM (12/18/2024 8:39 PM EDT)ComponentValueRef RangeTest MethodAnalysis TimePerformed AtPathologist SignatureMagnesium2.01.7 - 2.3 mg/dL12/18/2024 9:21 PM [facility] LABORATORYSpecimen (Source)Anatomical Location / LateralityCollection Method / VolumeCollection TimeReceived TimeBloodBLOOD SPECIMEN / UnknownVenipuncture / Ndxbfrt8212/18/2024 8:39 PM EDT12/18/2024 8:47 PM EDT Narrative Authorizing ProviderResult TypeResult StatusEric Evie Lopez DOLABORATORYFinal ResultPerforming OrganizationAddressCity/State/ZIP CodePhone Number [facility] [address] [place] [address], [place] * (ABNORMAL) HIGH SENSITIVITY TROPONIN T (INITIAL) (12/18/2024 8:39 PM EDT) ComponentValueRef RangeTest MethodAnalysis TimePerformed AtPathologist SignatureTNT High Srfqnauvtrx35(H)<12 ng/L12/18/2024 9:22 PM [facility] LABORATORYSpecimen (Source)Anatomical Location / LateralityCollection Method / VolumeCollection TimeReceived TimeBloodBLOOD SPECIMEN / UnknownVenipuncture / Gurnqql9812/18/2024 8:39 PM EDT12/18/2024 8:47 PM EDT Narrative Authorizing ProviderResult TypeResult StatusEric Evie Lopez DOLABORATORYFinal ResultPerforming OrganizationAddressCity/State/ZIP CodePhone Number [facility] [address] [facility] [place] [address], [place] * (ABNORMAL) NT PRO BNP (12/18/2024 8:39 PM EDT)ComponentValueRef RangeTest MethodAnalysis TimePerformed AtPathologist SignatureNT Pro DAU234(H)<450 pg/mL 12/18/2024 9:20 PM [facility] LABORATORYSpecimen (Source)Anatomical Location / LateralityCollection Method / VolumeCollection TimeReceived Time BloodBLOOD SPECIMEN / UnknownVenipuncture / Ltdwpxq4512/18/2024 8:39 PM EDT 12/18/2024 8:47 PM EDT Narrative Authorizing ProviderResult TypeResult StatusEric Evie Lopez DOLABORATORYFinal ResultPerforming OrganizationAddressCity/State/ZIP CodePhone Number [facility] [address] [facility] [place] [address], * PROTHROMBIN TIME (12/18/2024 8:39 PM EDT)ComponentValueRef RangeTest Method Analysis TimePerformed AtPathologist SignaturePT Sec11.79.7 - 13.0 sec 12/18/2024 9:18 PM [facility] LABORATORYINR1.10.9 - 1.308/ 9:18 PM [facility] LABORATORYComment: Vitamin K Antagonist (VKA) Therapeutic Range: INR 2 to 3 (Target INR of 2.5) Note: For patients treated with VKA drugs, such as warfarin, the [employer] 2012 Guideline recommends [...] 2.5 to 3.5 (target INR of 3). Guyatt GH, et al. Chest 2012, 141:7S-47S Jw RA, et al. [facility] 2017, 70: 252-289 Specimen (Source)Anatomical Location / LateralityCollection Method / Volume Collection TimeReceived TimeBloodBLOOD SPECIMEN / UnknownVenipuncture / Unknown 12/18/2024 8:39 PM EDT12/18/2024 8:47 PM EDT Narrative Authorizing ProviderResult TypeResult StatusEric D Lopez DOLABORATORYFinal ResultPerforming OrganizationAddressCity/State/ZIP CodePhone Number [facility] [address] [facility] [place] [address], * LIPASE (12/18/2024 8:39 PM EDT)ComponentValueRef RangeTest MethodAnalysis Time Performed AtPathologist FmmovmevpQwqjte9493 - 61 U/L12/18/2024 9:21 PM [facility] LABORATORYSpecimen (Source)Anatomical Location / LateralityCollection Method / VolumeCollection TimeReceived TimeBloodBLOOD SPECIMEN / Unknown Venipuncture / Unvypkx0712/18/2024 8:39 PM EDT12/18/2024 8:47 PM EDT Narrative Authorizing ProviderResult TypeResult StatusGovind Lopez DOLABORATORYFinal ResultPerforming OrganizationAddressCity/State/ZIP CodePhone Number [facility] [address] [facility] [place] [address], * (ABNORMAL) COMPREHENSIVE METABOLIC PANEL (12/18/2024 8:39 PM EDT)Component ValueRef RangeTest MethodAnalysis TimePerformed AtPathologist Signature Protein, Total6.46.3 - 8.0 g/dL12/18/2024 9:21 PM [facility] Albumin3.7(L)3.9 - 4.9 g/dL12/18/2024 9:21 PM [facility] Calcium, Total9.48.5 - 10.2 mg/dL12/18/2024 9:21 PM [facility] LABORATORYBilirubin, Total0.20.2 - 1.3 mg/dL12/18/2024 9:21 PM [facility] LABORATORYAlkaline Zxucxstifqo5772 - 123 U/L12/18/2024 9:21 PM EDT [facility] LTXOHEZCEBEPM9180 - 35 U/L12/18/2024 9:21 PM [facility] MNNNNTBMSHKYX00 - 38 U/L12/18/2024 9:21 PM [facility] LABORATORYGlucose 153(H)74 - 99 mg/dL12/18/2024 9:21 PM [facility] LABORATORYComment: The [place] [employer] (ADA) provides guidance for cutoff values for fasting glucose andrandom glucose. The ADA defines fasting as no [...] Standards of Medical Care in Diabetes 2016, [place] [employer]. Diabetes Care. 2016.39(Suppl 1). BUN22(H)7 - 21 mg/dL12/18/2024 9:21 PM [facility] LABORATORYCreatinine1.24 (H)0.58 - 0.96 mg/dL12/18/2024 9:21 PM [facility] KBQPKKGOBKYjmhcb869040 - 144 mmol/L12/18/2024 9:21 PM [facility] LABORATORYPotassium3.1(L)3.7 - 5.1 mmol/L12/18/2024 9:21 PM [facility] ZRVKENQRFXVoamfuja4685 - 107 mmol/L 12/18/2024 9:21 PM [facility] LNDOQUCCUGFE13060 - 30 mmol/L12/18/2024 9:21 PM [facility] LABORATORYAnion Wdc782 - 15 mmol/L12/18/2024 9:21 PM [facility] LABORATORYEstimated Glomerular Filtration Rate45(L)>=60 mL/min/1.73m 12/18/2024 9:21 PM [facility] LABORATORYComment:Estimated Glomerular Filtration Rate (eGFR) is calculated using the 2020 CKD-EPI creatinine equation. This equation utilizes serum creatinine, sex, and age as parameters. The creatinine assay has traceable calibration to isotope dilution-mass spectrometry. Refer to KDIGO guidelines for clinical interpretation. In patients with unstable renal function, e.g. those with acute kidney injury, the eGFRmay not accurately reflect actual GFR.Specimen (Source)Anatomical Location / LateralityCollection Method / VolumeCollection TimeReceived TimeBloodBLOOD SPECIMEN / UnknownVenipuncture / Cbweivm3712/18/2024 8:39 PM EDT12/18/2024 8:47 PM EDT Narrative Authorizing ProviderResult TypeResult StatusEric D Edy DOLABORATORYFinal ResultPerforming OrganizationAddressCity/State/ZIP CodePhone Number [facility] [address] [facility] [place] [address], * (ABNORMAL) CREATINE KINASE/CK (12/18/2024 8:39 PM EDT)ComponentValueRef Range Test MethodAnalysis TimePerformed AtPathologist TmnywtdelXG72(L)42 - 196 U/L 12/18/2024 9:21 PM [facility] LABORATORYSpecimen (Source)Anatomical Location / LateralityCollection Method / VolumeCollection TimeReceived Time BloodBLOOD SPECIMEN / UnknownVenipuncture / Cbxngam5812/18/2024 8:39 PM EDT 12/18/2024 8:47 PM EDT Narrative Authorizing ProviderResult TypeResult StatusGovind Lopez DOLABORATORYFinal ResultPerforming OrganizationAddressCity/State/ZIP CodePhone Number [facility] [address] [facility] [place] [address], * (ABNORMAL) COMPLETE BLOOD COUNT AND DIFFERENTIAL (12/18/2024 8:39 PM EDT) ComponentValueRef RangeTest MethodAnalysis TimePerformed AtPathologist SignatureWBC7.473.70 - 11.00 k/uL12/18/2024 8:59 PM [facility] LABORATORYRBC3.79(L)3.90 - 5.20 m/uL12/18/2024 8:59 PM [facility] ICEEOUQFLVKxfymytxva17.311.5 - 15.5 g/dL12/18/2024 8:59 PM [facility] IIEXUUIYEIRvnjdehxpn74.936.0 - 46.0 %12/18/2024 8:59 PM [facility] QBAFAPSLEBYAY64.480.0 - 100.0 fL12/18/2024 8:59 PM [facility] MCH32.526.0 - 34.0 pg12/18/2024 8:59 PM [facility] WCXUEVKBODOWNZ08.3 30.5 - 36.0 g/dL12/18/2024 8:59 PM [facility] LABORATORYRDW-CV11.911.5 - 15.0 %12/18/2024 8:59 PM [facility] LABORATORYPlatelet Fbcvb348267 - 400 k/uL12/18/2024 8:59 PM [facility] LABORATORYMPV8.7(L)9.0 - 12.7 fL 12/18/2024 8:59 PM [facility] LABORATORYNeutrophils %33.0%12/18/2024 8:59 PM [facility] LABORATORYAbs Neut2.471.45 - 7.50 k/uL12/18/2024 8:59 PM [facility] LABORATORYLymphocytes %51.7%12/18/2024 8:59 PM [facility]ORATORYAbs Lymph3.861.00 - 4.00 k/12/18/2024 8:59 PM [facility] LABORATORYMonocytes %9.4%12/18/2024 8:59 PM [facility]ORATORYAbs Mono0.70<0.87 k/uL12/18/2024 8:59 PM [facility] Eosinophils %4.6%12/18/2024 8:59 PM [facility]ORATORYAbs Eosin0.34 <0.46 k/12/18/2024 8:59 PM [facility] LABORATORYBasophils %1.2% 12/18/2024 8:59 PM [facility]ORATORYAbs Baso0.09<0.11 /12/18/2024 8:59 PM [facility] LABORATORYImmature Granulocytes %0.1%12/18/2024 8:59 PM [facility]ATORYAbs Immature Gran<0.03<0.10 /12/18/2024 8:59 PM [facility] LABORATORYNRBC0.0/100 WBC12/18/2024 8:59 PM [facility] LABORATORYAbsolute nRBC<0.01<0.01 /12/18/2024 8:59 PM [facility] LABORATORYDiff XbpuSomm20/17/2025 8:59 PM [facility] Specimen (Source)Anatomical Location / LateralityCollection Method / Volume Collection TimeReceived TimeBloodBLOOD SPECIMEN / UnknownVenipuncture / Pquffsz0512/18/2024 8:39 PM EDT12/18/2024 8:47 PM EDT Narrative Authorizing ProviderResult TypeResult StatusGovind Lopez DOLABORATORYFinal ResultPerforming OrganizationAddressCity/State/ZIP CodePhone Number [facility] [address] [facility] [place] [address], * (ABNORMAL) ETHANOL/ALCOHOL (12/18/2024 8:39 PM EDT)ComponentValueRef RangeTest MethodAnalysis TimePerformed AtPathologist WgoghgeniWkjgvvi425(H)<11 mg/dL 12/18/2024 9:19 PM [facility] LABORATORYComment:Values > 80 mg/dL may indicate intoxicationSpecimen (Source)Anatomical Location / Laterality Collection Method / VolumeCollection TimeReceived TimeBloodBLOOD SPECIMEN / UnknownVenipuncture / Toqxoeg4212/18/2024 8:39 PM EDT12/18/2024 8:47 PM EDT Narrative Authorizing ProviderResult TypeResult StatusGovind D Edy HERABORATORYFinal ResultPerforming OrganizationAddressCity/State/ZIP CodePhone Number [facility] [address] [facility] [place] [address], [place] * EKG (12/18/2024 8:27 PM EDT)ComponentValueRef RangeTest MethodAnalysis Time Performed AtPathologist SignatureVentricular Zznx95DWEBSKR CARDIOLOGYAtrial Fejo44RIDXDUA CARDIOLOGYP-R Rkqplcbk788rgSXUU CARDIOLOGYQRS Yitapwxw159wsFGHY CARDIOLOGYQT Dhgqvjai518ofDNKQ CARDIOLOGYQTC Calculation ([place]azett)430msAVON CARDIOLOGYCalculated P Xxbb835npjkisvYIXM CARDIOLOGYCalculated R [place]-23 degreesAVON CARDIOLOGYCalculated T Ndpj487whgcbvwBZOP CARDIOLOGYSpecimen (Source)Anatomical Location / LateralityCollection Method / VolumeCollection TimeReceived Time12/18/2024 8:27 PM EDT Impressions [facility] - 12/19/2024 1:04 AM EDT Sinus or ectopic atrial rhythm Prolonged [place] intervalAbnormal ECG Confirmed by GOVIND LOPEZ DO ([id number]) on 12/19/2024 1:04:30 AM Narrative [facility] - 12/19/2024 1:04 AM EDT NAME : BETTIE MARQUEZ PID : [id number] : 1945 Gender : Female Race : ORD : Procedure Date : Dec 18 2024 20:27:32 Edit Date : Dec 19 2024 01:04:35 Diagnosis: Sinus or ectopic atrial rhythm Prolonged [place] intervalAbnormal ECG Confirmed by GOVIND LOPEZ DO ([id number]) on 12/19/2024 1:04:30 AM Test Reason : Location : 302 : ED ??AVED-12 Overread By : GOVIND LOPEZ DO Edited By : GOVIND LOPEZ DO Referred By : , Acquired by : , Authorizing ProviderResult TypeResult StatusCcf ProviderCARDIOLOGY_MEFinal ResultPerforming OrganizationAddressCity/State/ZIP CodePhone Number [facility] [address] [facility] [place] [address], [place] from Last 3 Months Insurance Care Teams Team MemberRelationshipSpecialtyStart DateEnd Date Marine Glass MD [address] [place] [phone] PCP - GeneralFamily Medicine11/26/15
--- OUTSIDE RECORDS SUMMARY | 2025-03-13 20:52 | XMS_ITS | Encounter Summary ---
Author Organization [facility] [employer] Address [facility] [place] [place] [address] Care Team Providers Care [employer] Manager Name Role Phone Marine Glass MD Primary Care Provider [phone] Reason for Visit * ReasonOnset DateCommentsEvent Monitor Alert03/06/2025 Encounter Details DateTypeDepartmentCare Team (Latest Contact Info)Yxfzsnotnch49/03/2025Telephone [facility] [address] [place] [address] Sonya Baker RN Event Monitor Alert Social History Tobacco UseTypesPacks/DayYears UsedDateSmoking Tobacco: FormerCigarettesQuit: 05/06/1989mokeless Tobacco: Never Comments:quit in 1989 Alcohol UseStandard Drinks/WeekCommentsYes0 (1 standard drink = 0.6 oz pure alcohol)socialPHQ-2AnswerDate RecordedTotal Bmaks40806/25/2019AUDIT-CAnswerDate RecordedQ1: How often do you have a drink containing alcohol?Monthly or less 02/23/2025Q2: How many drinks containing alcohol do you have on a typical day when you are drinking?1 or Q3: How often do you have six or more drinks on one occasion?Never10/23/2025ChildcareAnswerDate RecordedChildcare Hhtnors2810/05/2018EmploymentAnswerDate QzlqgbtvFdafwlgbgaOlvzydi29/04/2019Hunger ScreeningAnswerDate RecordedWithin the past 12 months we worried whether our food would run out before we got money to buy more.Never True02/23/2025Within the past 12 months the food we bought just didn't last and we didn't have money to get more.Never True02/23/2025Purpose - LifeAnswerDate RecordedPurpose and direction in lrvyNkwcqil94/12/2021CommentsNoSex and Gender Information ValueDate RecordedSex Assigned at DwsqrQijtuk43/06/2019 11:19 AM ESTLegal Sex Zxhxlo9412/07/2014 11:36 AM EDTGender YfxsxlihTtmjhy44/06/2019 11:19 AM ESTSexual OrientationNot on filedocumented as of this encounter Miscellaneous Notes * Telephone Encounter - Sonya Baker RN - 03/06/2025 9:47 AM EST Event Monitor placed per 02/23/25 OV with [facility]. Alert strip faxed. Awaiting scan to chart to [facility]. * Telephone Encounter - Sonya Baker RN - 03/06/2025 9:47 AM EST [facility] - please review and advise if needed. 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 No distinct change in her QRS morphology from last year when she was started on flecainide by electrophysiology. Symptomatic paroxysmal atrial fibrillation on rhythm control with flecainide . Compliant with Eliquis no issues Nonobstructive coronary disease cardiac catheterization, structurally normal heart, I do not think her current symptoms are related to either ischemic or myocardial disease Mildly elevated left ventricular end-diastolic pressure on catheterization 2021, does not appear carmela in heart failure currently. She maybe had a towards a pacemaker regardless However on high-dose atenolol will stop this start Toprol-XL 12.5 daily Continue flecainide One-month event monitor to identify if her issue is sinus node dysfunction AV block etc. She may start to feel better just with switching her beta-philip Regardless I would like her to see electrophysiology about options depending on the results of her testing. She is set up with [facility] 05/01/25 * Telephone Encounter - Joshua Zhu MD - 03/06/2025 9:47 AM EST Nothing major at this point, continue with plans to see electrophysiology * Telephone Encounter - Sonya Baker RN - 03/06/2025 9:47 AM EST I called the patient and relayed the alerts that have come through and that [facility] has reviewed. She said she was very upset on 03/01 because her washer wasn't connected properly and flooded the whole room, she figured her heart was racing. She understands to continue with the monitor and if anything concerning shows up before its completed we will reach out. documented in this encounter Plan of Treatment DateTypeDepartmentCare Team (Latest Contact Info)Senrpjnfqtl73/29/2025 3:30 PM ESTOffice Visit [facility] [address] [place] [address] Oscar Sandoval MD [address] [place] [address] documented as of this encounter Visit Diagnoses Not on filedocumented in this encounter Additional Health Concerns AssessmentNoted TimePHQ-9 Depression Total Score: 10:41 AM EST documented as of this encounter Care Teams Team MemberRelationshipSpecialtyStart DateEnd Date Marine Glass MD [address] [place] [address] [facility]07/15/23documented as of this encounter
--- OUTSIDE RECORDS SUMMARY | 2025-03-13 20:52 | XMS_ITS | CCD ---
Author Organization [facility] Care Team Providers Care Customer Services Coordinator Name Role Phone PHYSICIAN, DEFAULT Unavailable Unavailable PHYSICIAN, DEFAULT Unavailable Unavailable Elliot Starks MD Primary Care Provider DR ELLIOT STARKS Primary Care Unavailable ANETA EDUARDO Admitting Unavailable ALESHA, ANETA Attending Unavailable ANETA EDUARDO Consulting Unavailable MARIA LUISA, DR ELLIOT Nayak Admitting Unavailable STARKS, DR ELLIOT Nayak Attending Unavailable MARIA LUISA, DR ELLIOT Nayak Primary Care Unavailable STARKS, DR ELLIOT Nayak Consulting Unavailable MARIA LUISA, DR ELLIOT Nayak Primary Care Unavailable PAY, DR MANN Consulting Unavailable PAY, DR MANN Admitting Unavailable PAY, DR MANN Attending Unavailable BRODERICK, LUANA Consulting Unavailable JOAQUÍN ATKINS Consulting Unavailable Elliot Starks Unavailable Elliot Starks MD Primary Care Provider MD Elliot Starks Attending Provider ELLIOT STARKS Primary Care Physician Elliot Starks MD Primary Care Provider Elliot Starks MD Primary Care Provider Elliot Starks MD Primary Care Provider Elliot Starks MD Primary Care Provider Axel Miller Attending Unavailable Maria E Osman Attending Unavailable Maria E Osman Attending Unavailable Maria E Osman Admitting Unavailable Maria E Osman Attending Unavailable Maria E Osman Admitting Unavailable ELLIOT STARKS Primary Care Unavailable SELF, SELF Referring Unavailable LUZ DOUGHERTY Attending Unavailable LUZ DOUGHERTY Attending Unavailable ELLIOT STARKS Primary Care Unavailable JAILYN DOUGHERTYA M Referring Unavailable LUZ DOUGHERTY M Attending Unavailable ELLIOT STARKS Primary Care Unavailable BROCWELL, LUZ M Referring Unavailable STARKS, ELLIOT Primary Care Unavailable AMARI, MATHEUS Attending Unavailable AMARI, MATHEUS Referring Unavailable SELF, SELF Referring Unavailable AMARI, MATHEUS Attending Unavailable STARKS, ELLIOT Primary Care Unavailable YESI OHARA Attending Unavailable YESI OHARA Referring Unavailable STARKS, ELLIOT Primary Care Unavailable SELF, SELF Referring Unavailable YESI OHARA Attending Unavailable STARKS, ELLIOT Primary Care Unavailable BROCWELL, LUZ M Referring Unavailable STARKS, ELLIOT Primary Care Unavailable BRORaleighWELL LUZ M Attending Unavailable Elliot Starks MD Primary Care Provider [phone] Axel Miller Attending Unavailable Jean Pierre MARTE Admitting Unavailable Jean Pierre MARTE Attending Unavailable RADHA MART Attending Unavailable ELLIOT STARKS Referring Unavailable ELLIOT STARKS E Primary Care Unavailable LUZ LONDON Referring Unavailable ELLIOT STARKS Primary Care Unavailable NISSA MONTAGUE Referring Unavailable ELLIOT STARKS Primary Care Unavailable Elliot Starks MD Primary Care Provider Elliot Starks MD Attending Provider Agusto VILLEGAS, Daisy Dietz Attending Unavailable Agusto VILLEGAS, Andrius Vaudrey Attending Unavailable Agusto VILLEGAS, Andrzejrius Vaudrey Attending Unavailable Agusto VILLEGAS, Andrius J Luis Attending Unavailable Elliot Starks MD Primary Care Provider RADHA ESPINAL Attending Unavailable Tyshawn Snow DO Attending Provider Unavailable Ayanna Saini CMA Attending Provider Unavaila ELLIOT Lam Primary Care Unavailable TYSHAWN SNOW Attending Unavailable Ian Connell DO Attending Provider Elliot Starks MD Other Provider [phone] Marisa Willis MD Attending Provider Maria E Osman Attending Unavailable Axel Miller Admitting Unavailable Axel Miller Attending Unavailable Axel Miller Referring Unavailable Maria E Osman Attending Unavailable Maria E Osman Admitting Unavailable Maria E Osman Attending Unavailable Axel Miller Referring Unavailable Maria E Osman Attending Unavailable Elliot Starks Attending Unavailable Elliot Starks E Primary Care Unavailable Elliot Starks Admitting Unavailable Elliot Starks MD Primary Care Provider Maria E Osman Attending Unavailable Maria E Osman Attending Unavailable Maria E Osman Attending Unavailable Maria E Osman Admitting Unavailable JOCELYNN HOUSTON Attending Unavailable ELLIOT STARKS Referring Unavailable ELLIOT STARKS Primary Care Unavailable JOCELYNN HOUSTON Referring Unavailable ELLIOT STARKS Primary Care Unavailable Elliot Starks Primary Care Unavailable Joceylnn Houston MD Attending Unavailable Jocelynn Houston MD Admitting Unavailable Allergies Allergy ClassificationReported Allergen(s)Allergy TypeDate of OnsetReaction(s) Facility (20 sources)Acetaminophen / HYDROcodone; Translations: [HYDROCODONE-ACETAMINOPHEN]Drug Rgmppkh73-49-4010Onagkdy, Itching, Nausea Only, [facility]Port [facility] ([facility] sources)Baclofen; Translations: [baclofen]Drug Xtbsmgb79-94-6921Uoknmlv, Itching, RashPort Lions Clinic (20 sources)Codeine; Translations: [codeine]Drug Kfymlqg75-36-3779Jxwruli, Itching, RashClerm[facility] (20 sources)levoFLOXacin; Translations: [levofloxacin]Drug Daciwic42-48-0103 Unknown, Itching, Nausea Only, [facility] (20 sources)Morphine; Translations: [morphine]Drug Hkhmsfi63-67-6561Wklpi [facility] (17 sources)oxyCODONE; Translations: [OXYCODONE]Drug Wonqfjm76-31-2149Ehmwp [facility] (16 sources)Penicillins; Translations: [PENICILLINS]Drug Drjgbqz20-03-6656LxbpkMercer County [facility] (1 source)BaclofenDrug AllergyThe [facility] (1 source)CodeineDrug AllergyThe [facility] (18 sources)levoFLOXacin; Translations: [Levaquin]Drug AllergyUnknownTMercy Health Repository (1 source)MorphineDrug Rquynii62-09-6970Qka [facility] (1 source)oxyCODONEDrug Pnjydrh93-22-6407Grp [facility] (1 source)PenicillinsDrug allergy (disorder)62-56-2692Onx [facility] (7 sources)traMADol; Translations: [Ultram]Drug AllergyThe [facility] (11 sources)CodeineDrug AllergyUnkCranston General Hospital [facility] Other (20 sources)Penicillin; Translations: [penicillin]Drug AllergyUnknownExecutive [facility]rology [facility] (20 sources)traMADol; Translations: [tramadol]Drug Ecovxmg37-91-0868Pzsprcn, RashExecutive [facility] of [facility] (20 sources)zolpidem; Translations: [zolpidem]Drug Huiiioi49-68-8960Oyslxve, HivesExecutive Urology of [facility] (11 sources)PenicillinsDrug Tzqahfz69-64-3949Lizro, RashClermont County Hospital (1 source)Non-steroidal anti-inflammatory agentDrug -70-5872Casibsh [place] [facility] Other (20 sources)sulfADIAZINE; Translations: [SULFADIAZINE]Drug Tfofjfy77-50-0087 Comment:[facility] (1 source)Ultram *ANALGESICS - OPIOID*Propensity to adverse reactionsCedars Medical Center [facility] Other (1 source)Vioxx *ANALGESICS - ANTI-INFLAMMATORY*Propensity to adverse reactions [facility] [place] Other (1 source)Penicillin G Benzathine & ProcDrug allergyEleanor Slater Hospital/[facility] [place] Other (1 source)Morphine Sulfate (Concentrate) *ANALGESICS - OPIOIPropensity to adverse reactionsEleanor Slater Hospital/[facility] [place] Other (1 source)Allergies ReconciledPropensity to adverse reactionsEleanor Slater Hospital/[facility] [place] Other (1 source)patient allergy list reviewed by nurse or physiciaPropensity to adverse uxwvtuubi47-43-3110Drrqcgo:[facility] [employer] Other (1 source)Vicodin *ANALGESICS - OPIOID*Propensity to adverse reactionsCedars Medical Center [place] Other (9 sources)calcitoninDrug njaadtn61-73-6682VcqniwzUC [facility] (15 sources)PenicillinsPropensity to adverse reactions to aeyt19-82-3628RtnswbvUpper Valley Medical Center (10 sources)LatexPropensity to adverse reactions to figp92-77-3207Uyftb [facility] (10 sources)*Adhesive TapePropensity to adverse amqhdloxz59-09-0995[facility] (8 sources)CephalexinDrug Wpadpeg87-33-0496Bfwkow Only, Dry Mouth, FlushingPremier Health [facility] (9 sources)Acetaminophen; Translations: [acetaminophen]Drug Crkhdaa07-96-5964 [facility] (9 sources)HYDROcodone; Translations: [hydrocodone]Drug Qeetuhk93-06-0986VtrhcSouthern [facility] Medical Center (9 sources)Penicillin G Benzathine; Translations: [penicillin G benzathine] Allergy to uueoptbkw84-12-9747IudskIakqxxbqsChillicothe Hospital (20 sources)rofecoxib; Translations: [ROFECOXIB]Drug Zukgfdo50-83-4072MxeiuSouthern Ohio Medical Center (20 sources)Adhesive agent; Translations: [ADHESIVE]Propensity to adverse reactions to xjgq60-74-3010BdzFafidq Health System (20 sources)penicillin G benzathine / penicillin G procaine; Translations: [PENICILLIN G BENZATHIN,PROCAIN]Drug Dhxanzp89-84-5344HqkEmfvjv Health System (5 sources)Morphine; Translations: [Morphine Sulfate]Drug AllergyMercy Memorial Hospital Rep[facility] (5 sources)zolpidem; Translations: [Ambien]Drug AllergyMercy Memorial Hospital Repository (14 sources)PenicillinsPropensity to adverse reactions to jnvn94-34-6655Txbx, HivesPUniversity [facility] (3 sources)BaclofenDrug Favutfw65-98-4905LxgdRLVJ Healthcare (8 sources)Adhesive agentPropensity to adverse reactions to rrwy38-81-1603 [facility]May[facility] (1 source)BaclofenDrug Gehyhco42-64-2874NcorlimwoKettering Health Main Campus Repository (1 source)CodeineDrug Cjavmhv42-59-6238RkhhgxwkdKettering Health [facility] Campus Repository (1 source)levoFLOXacinDrug Calhajk50-88-9330QkcrierukKettering Health Main Campus Repository (1 source)MorphineDrug Pfpggmy91-70-4097Gqpurdhab [facility] Repository (1 source)PenicillinsDrug allergy (disorder)76-49-0783GwrjluirrKettering Health [facility] Campus Repository (1 source)sulfADIAZINEDrug Grguvdj36-57-0066IaxzjgzxjKettering Health Main Campus Repository (1 source)traMADolDrug Evuafcb26-99-3940RusqmeyxnKettering Health [facility] Campus Repository (1 source)zolpidemDrug Xmnahnp41-71-3724MdmztixlzKettering Health [facility] Repository (1 source)calcitoninDrug allergy (disorder)19-10-9941PkttdksgyKettering Health Main Campus Repository (1 source)Acetaminophen / HYDROcodone; Translations: [Vicodin]Drug Allergy [facility] Repository (1 source)Adhesive Tape; Translations: [Tape]Propensity to adverse reactions (disorder)[facility] Repository Medications Current Medications MedicationDrug Class(es)DatesSig (Normalized)Sig (Original)Acidophilus Probiotic Blend (2 sources)Start: 00-65-0836Woozziomllr Probiotic Blend Oral, Daily, Refill(s) 0 Start Date: 02/14/25 Status: Ordered Repeat number: 1apixaban 5 mg oral tablet (20 sources)Factor Xa InhibitorStart: 07-07-2023 End: 40-61-3151yrvn 2.5 mg by mouth every twelve hours in the morning2.5 mg, Oral, EVERY 12 HOURS, First dose on Thu07/08/23 at 0900, Until Discontinued, Start in AM dayafter surgery, Indications: Venous Thromboembolism, Post-op/Post-ProcStart: 06-24-2023 End: 49-87-3060orns 1 tablet by mouth onceApixaban (Eliquis) 5 mg tablet Discontinued 5 MG PO Once June 24, 2023 1:00am April 30, 2024 11:34am Start: 08-31-2017 End: 13-58-6261IGBOZUN 5 mg tablet Indications: Paroxysmal atrial fibrillation (CMS-HCC) TAKE 1 TABLET TWICE A DAY(NEED ALL ANNUAL LABS DRAWN FOR FURTHER REFILLS, 08/10/24) 180 tablet 3 11/16/2024 Activetake 2 tablets by mouth every twelve hoursapixaban 2.5 MG tablet Take 2 tablets by mouth every 12 hours. Activeapixaban 2.5 MG tablet Take by mouth every 12 hours. 0 ActiveComment on above:Take 5 mg by mouth twice daily. ascorbic acid 226 mg / beta carotene 73100 unt / cuprous oxide 0.8 mg / dl-alpha tocopheryl unt / zinc oxide 34.8 mg oral capsule (20 sources)Vitamin CStart: 38-49-9924ircw 1 capsule by mouth in the morning vitamins A,C,P-mbyt-ltctoi (ICAPS AREDS) 4,296 mcg-226 mg-90 mg capsule Take 1 capsule by mouth in the morning and 1 capsule before bedtime. 10/28/2023 Active Start: 98-09-9140whbk 1 capsule by mouth twice dailyatenolol 50 mg oral tablet (20 sources)beta-Adrenergic BlockerStart: 2023 End: 59-18-1360vfbe 75 mg by mouth once daily75 mg, Oral, DAILY, First dose on Thu07/08/23 at 0900, Until DiscontinuedStart: 06-24-2023 End: 53-59-6733mmvmyefg 50 mg Tab 50 mg = 1 tab(s), Refills(s) 0 Start Date: 06/22/24 Status: Ordered Repeat number: 1Start: 09-10-2022 End: 67-88-4157sogc 1.5 tablets by mouth in the morningatenoloL (TENORMIN) 50 mg tablet Take 1.5 tablets (75 mg total) by mouth in the morning. 135 tablet3 07/24/2023 07/06/2024 DiscontinuedStart: 23-59-4550twvrkbxg (Tenormin) 50 MG tablet Take 25 mg by mouth Daily 04/11/2009 ActiveStart: 91-96-1927nagflkke (TENORMIN) 50 mg tablet 25 mg twice daily. 0 08/31/2017 Activetake 1 tablet by mouth once dailyAtenolol 25 MG tablet Take 1 tablet by mouth daily. 0 Activetake 1 tablet by mouth once dailyAtenolol 50 MG 1 1/2 TAB Orally Once a day Active Comment on above:25 mg twice daily. baclofen 10 mg oral tablet (20 sources)gamma-Aminobutyric Acid-ergic AgonistStart: 13-23-6451kgea 1 tablet by mouth once dailyStart: 25-33-0721BDEUOZOW 10 MG TABLET BACLOFEN 10 MG TABLET Start Date: 05/27/23 Status: Ordered Repeat number: 1Start: 80-81-1179ISEAUOZY 10 MG TABLET BACLOFEN 10 MG TABLET Start Date: 05/27/23 Status: Ordered End: 07-34-9243ducs 1 tablet by mouth three times daily as neededbaclofen (LIORESAL) 20 mg tablet Take 1 tablet (20 mg total) by mouth 3 (three) times a day. PRN 11/08/2024 Discontinued (Therapy completed)take 1 tablet by mouth three times daily as neededbaclofen 10 MG tablet Take 1 tablet by mouth 3 times daily. NEEDED Activebenzonatate 200 mg oral capsule (4 sources)Non-narcotic AntitussiveStart: 48-50-4727fdbo 1 capsule by mouth every eight hoursBenzonatate 200 MG 1 capsule Orally Three times a day for 10 day(s) Jul, ActiveAlign (2 sources)Start: 31-02-6819Axdkl Oral, Daily, Refill(s) 0 Start Date: 02/14/25 Status: Ordered Repeat number: 1cephalexin 500 mg oral capsule (6 sources)Cephalosporin AntibacterialStart: 17-18-3260gvdq 1 capsule by mouth twice dailycephalexin 500 mg Cap TAKE 1 CAPSULE BY MOUTH TWICE A DAY FOR 7 DAYS Start Date: 02/14/25 Status: Ordered Repeat number: 1Start: 12-29-2024 End: 33-27-3558iqjq 1 capsule by mouth three times dailyCephalexin 500 mg capsule Discontinued 500 MG PO Three times daily 21 11December 29, 2024 12:00am February 03, 2025 8:44amStart: 07-07-2023 End: 19-95-7653fjzk 1 capsule by mouth every eight hourscephALEXin 500 MG capsule Take 1 capsule by mouth every 8 hours for 7 days. 21 capsule 07/07/2023 07/14/2023 Activeclarithromycin 500 mg oral tablet (8 sources)Macrolide AntimicrobialStart: 07-23-2023 End: 64-96-5633lxhuetuwsvnlru 500 MG tablet Take one tab one hour prior to dental procedure. 2 tablet 1 Activeclindamycin 300 mg oral capsule (3 sources)Lincosamide AntibacterialStart: 81-12-0333npgdtwixhhk (Cleocin) 300 MG capsule every 8 (eight) hours 01/03/2022 ActiveCranberry preparation (2 sources)Non-Standardized Food Allergenic Extract, Non-Standardized Plant Allergenic ExtractStart: 92-57-6678kunwdlzmr Refill(s) 0 Start Date: 02/14/25 Status: Ordered Repeat number: 1cyclobenzaprine hydrochloride 10 mg oral tablet (4 sources)Muscle RelaxantStart: 41-90-0923xfte 1 tablet by mouth every twelve hours as neededcyclobenzaprine (FLEXERIL) 10 mg tablet Take 10 mg by mouth twice daily as needed. 0 01/13/2019 ActiveComment on above:Take 10 mg by mouth twice daily as needed.cycloSPORINE 0.5 mg/ml ophthalmic suspension (8 sources)Calcineurin Inhibitor ImmunosuppressantStart: 61-56-0458hsqv 0.05 drop(s) into the eye(s) every twelve hoursStart: 61-63-6483khap 0.05 drop(s) into the eye(s) every twelve hoursCyclosporine (Restasis Multidose) 0.05 % drops Active 1 DROPS EYE-BOTH Every 12 hours October 27, 2023 11:00pmdocusate sodium 100 mg oral capsule (10 sources)Start: 07-07-2023 End: 26-15-8521hmme 1 capsule by mouth twice dailyDocusate 100 MG capsule Take 1 capsule by mouth 2 times daily. 60 capsule 07/07/2023 Activeestradiol 0.1 mg/ml vaginal cream (13 sources)EstrogenStart: 80-04-8323Yzkpbkr 0.1 mg/g Cream See Instructions, 42.5 gm, Refill(s) 2, Apply pea sized amount to urethra/vagina 3x a week for 1 month, then 2x a week afterwards, [facility]/pharmacy #[id number], 165, cm, 01/25/25 8:16:00 EDT, Height/Length Dosing, 81.4, kg, 10/26/24 8:10:00 EDT, Weight Dosing Start Date: 01/25/25 Status: Ordered Quantity: 42.5 Unit: g Repeat number: 3 Indications: Urinary tract infection, site not specified; Postmenopausal atrophic vaginitis;Start: 30-92-3415Jxzvdvz 0.1 mg/g Cream See Instructions, 42.5 gm, Refill(s) 2, Apply pea sized amount to urethra/vagina 3x a week for 1 month, then 2x a week afterwards, [facility]/pharmacy #[id number], 165, cm, 06/22/24 13:05:00 EST, Height/Length Dosing, 80.7, kg, 06/22/24 13:05:00 EST, Weight Dosing Start Date: 09/19/24 Status: Ordered Quantity: 42.5 Unit: g Repeat number: 3 Indications: Postmenopausal atrophic vaginitis; Urinary tract infection, site not specified;Start: 20-28-6813VTVPXHQ VAGINAL 0.1 MG/GM cream See Instructions, 42.5 gm, Refill(s) 3, apply pea size amount to urethra/inner vagina 3x/week x 1 month, then 2x/week for maintainence, [facility]/pharmacy #[id number], 165, cm, 02/11/23 10:41:00 EDT, Height/Length Dosing, 77.5, kg, 02/11/23 10:41:00 EDT, Weight Dosing 02/11/2023ctiveStart: 52-09-6754Pzfdkxd 0.1 mg/g Cream See Instructions, 42.5 gm, Refill(s) 3, apply pea size amount to urethra/inner vagina 3x/week x 1 month, then 2x/week for maintainence, [facility]/pharmacy #[id number], 165, cm, 02/11/23 10: 41:00 EDT, Height/Length Dosing, 77.5, kg, 02/11/23 10:41:00 EDT, Weight Dosing Start Date: 02/11/23 Status: Orderedflecainide acetate 50 mg oral tablet (20 sources)AntiarrhythmicStart: 07-15-2023 End: 19-58-5631oaoogmujli (TAMBOCOR) 50 mg tablet Indications: Paroxysmal atrial fibrillation (CMS-HCC) TAKE 1 TABLET IN THE MORNING AND 1 TABLET BEFORE BEDTIME 180 tablet 3 01/17/2025 ActiveStart: 07-15-2023 End: 15-14-7194bmqe 1 tablet by mouth in the morning, then take 1 tablet by mouth at bedtimeflecainide (TAMBOCOR) 50 mg tablet Indications: Paroxysmal atrial fibrillation (CMS-HCC) Take 1 tablet (50 mg total) by mouth in the morning and 1 tablet (50 mg total) before bedtime. 180 tablet 1 07/28/2024 ActiveStart: 14-93-3265ddkarvtmdf (TAMBOCOR) 100 mg tablet Take 100 mg by mouth. 0 10/06/2017 ActiveComment on above:Take 100 mg by mouth.hydroCHLOROthiazide 25 mg oral tablet (20 sources)Thiazide DiureticStart: 09-18-2022 End: 87-08-0525blvutVYJDRCdfjszfjl (HYDRODIURIL) 25 mg tablet TAKE 1 TABLET DAILY 90 tablet 2 02/02/2025 ActivehydroCHLOROthiazide 25 mg / losartan potassium 100 mg oral tablet (4 sources)Thiazide Diuretic, Angiotensin 2 Receptor BlockerStart: 07-28-2018 losartan-hydrochlorothiazide (HYZAAR) 100-25 mg per tabletIron Chews (1 source)Start: 95-85-0274pgil 1 mg by mouth once dailyIron Chews mg, Oral, Daily, Refills(s) 0 Start Date: 02/11/23 Status: Orderedlifitegrast 50 mg/ml ophthalmic solution (4 sources)Lymphocyte Function-Associated Antigen-1 AntagonistStart: 03-10-2019 XIIDRA 5 % dpetlisinopril 20 mg oral tablet (20 sources)Angiotensin Converting Enzyme InhibitorStart: 53-94-0416Wsodm: 70-97-4893Bockyokimz 20 mg tablet Active 0 .ROUTE .COMPLEX 90 March 21, 2024 4:38pm TAKE 1 TABLET DAILYStart: 02-22-2019 End: 77-13-0579kbowvjdxda 20 mg Tab Refills(s) 0 Start Date: 02/11/23 Status: Ordered Repeat number: 1take 1 tablet by mouth once dailyLisinopril 5 MG tablet Take 1 tablet by mouth daily. 0 ActiveLORazepam 1 mg oral tablet (4 sources)BenzodiazepineLORazepam (ATIVAN) 1 mg tablet Take 1 mg by mouth. 0 ActiveComment on above:Take 1 mg by mouth.magnesium citrate (2 sources)Start: 04-29-9645twslrknzn citrate Refill(s) 0 Start Date: 02/14/25 Status: Ordered Repeat number: 1melatonin 10 mg oral tablet (4 sources)Start: 78-02-4592tzsi 1 mg by mouth once daily at bedtimemelatonin 10 mg oral tablet mg tab(s), Oral, Once a day (at bedtime), Refills(s) 0 Start Date: 02/11/23 Status: OrderedMelatonin 10 MG capsule Activemeperidine hydrochloride 50 mg oral tablet (4 sources)Opioid Agonistmeperidine (DEMEROL) 50 mg tablet Take 25 mg by mouth as needed. 0 ActiveComment on above:Take 25 mg by mouth as needed.24 hr metoprolol succinate 25 mg extended release oral tablet (2 sources)beta-Adrenergic BlockerStart: 58-45-0997asii 0.5 tablet by mouth every twenty-four hours in the morningmetoprolol succinate XL (TOPROL XL) 25 mg 24 hr tablet Take 0.5 tablets (12.5 mg total) by mouth inthe morning. 15 tablet 11 02/23/2025 Ggqere02 hr mirabegron 50 mg extended release oral tablet (1 source)beta3-Adrenergic AgonistStart: 25-21-9163iucp 1 tablet by mouth once dailymirabegron 50 mg oral tablet, extended release 50 mg = 1 tab(s), Oral, Daily, # 30 tab(s), Refills(s) 11, Pharmacy: [facility]/pharmacy #[id number], 165, cm, 02/11/23 10:41:00 EDT, Height/Length Dosing, 77.5, kg,02/11/23 10:41:00 EDT, Weight Dosing Start Date: 02/11/23 Status: OrderedMultiple Vitamin (MULTIVITAMIN ADULT PO) (3 sources)Multiple Vitamin (MULTIVITAMIN ADULT PO) ActiveMultiple Vitamin (MULTIVITAMIN ADULT PO) Multivitamin ActiveMultiple Vitamin (multivitamin) capsule (8 sources)take 1 capsule by mouth once dailyMultiple Vitamin (multivitamin) capsule Take 1 capsule by mouth daily. ActiveAleve (20 sources)Nonsteroidal Anti-inflammatory DrugStart: 11-00-6977Dnsld Refills(s) 0 Start Date: 06/22/24 Status: Ordered Repeat number: 1Start: 68-37-2057Hpxas Refills(s) 0 Start Date: 06/22/24 Status: OrderedStart: 99-66-8477ubnm 1 mg by mouth every twelve hoursAleve mg, Oral, q12hr, Refills(s) 0 Start Date: 02/11/23 Status: Orderednaproxen sodium (ALEVE) 220 mg tablet Take 1 tablet (220 mg total) by mouth as needed for pain. ActiveNeuveria Vitamin OTC (8 sources)Start: 61-09-7488Zkklybct Vitamin OTC Neuveria Vitamin OTC Start Date: 06/22/24 Status: Ordered Repeat number: 1Start: 40-16-1316Whvrwuie Vitamin OTC Neuveria Vitamin OTC Start Date: 06/22/24 Status: Orderednitrofurantoin, macrocrystals 25 mg / nitrofurantoin, monohydrate 75 mg oral capsule (6 sources)Nitrofuran AntibacterialStart: 02-23-2025 End: 79-22-4140bpuw 1 capsule by mouth twice dailyMacrobid 100 mg Cap 100 mg = 1 cap(s), Oral, BID, X 7 day(s), # 14 cap(s), Refills(s) 0, Pharmacy: [facility]/pharmacy #[id number], 165, cm, 02/14/25 10:03:00 EDT, Height/Length Dosing, 81.5, kg, 02/14/25 10:03:00 EDT, Weight Dosing Start Date: 02/23/25 Stop Date: 03/02/25 Status: Ordered Quantity: 14.0 Unit: cap(s) Repeat number: 1 Indications: Unspecified symptoms and signs involving the genitourinary system; Start: 01-25-2025 End: 08-81-0403jkkb 1 capsule by mouth twice dailyMacrobid 100 mg Cap 100 mg = 1 cap(s), Oral, BID, X 7 day(s), # 14 cap(s), Refills(s) 0, Pharmacy: [facility]/pharmacy #[id number], 165, cm, 01/25/25 8:16:00 EDT, Height/Length Dosing, 81.4, kg, 10/26/24 8:10:00 EDT, Weight Dosing Start Date: 01/25/25 Stop Date: 02/01/25 Status: Ordered Quantity: 14.0 Unit: cap(s) Repeat number: 1 Indications: Urinary tract infection, site not specified;Start: 88-75-9781yhnv 1 capsule by mouth every twelve hoursNitrofurantoin Monohyd Macro 100 MG 1 capsule with food Orally every 12 hrs for 7 days Jun,ctiveNON FORMULARY (20 sources)NON FORMULARY Med Name:Neuveria vitamin 1 qd ActiveNON FORMULARY Med Name:Neuveria vitamin 1 qd 0 ActiveNON-FORMULARY (8 sources)NON-FORMULARY Med Name:Richelle vitamin 1 qd Activeomeprazole 40 mg delayed release oral capsule (20 sources)Proton Pump InhibitorStart: 04-30-2024 End: 47-36-7748zcmtxnxccv 40 mg Cap-DR 40 mg = 1 cap(s), Refills(s) 0 Start Date: 06/22/24 Status: Ordered Repeat number: 1Start: 12-22-2023 End: 09-32-5032Aazewvydzf 40 mg capsule,delayed release(DR/EC) Discontinued 0 .ROUTE .COMPLEX 180 December 22, 2023 11:13am April 30, 2024 11:34am TAKE 2 CAPSULES DAILYStart: 38-27-7933Qscsskjien Active 0 .ROUTE .COMPLEX 180 December 22, 2023 11:13am TAKE 2 CAPSULES DAILYStart: 06-24-2023 End: 95-80-3281lxsf 1 capsule by mouth once dailyOmeprazole 40 mg capsule,delayed release(DR/EC) Discontinued 40 MG PO Daily June 24, 2023 1:00am December 22, 2023 11:13amStart: 90-24-8839dejnwuoggf 40 mg Cap-DR Refills(s) 0 Start Date: 02/11/23 Status: Orderedtake 1 capsule by mouth in the morningomeprazole (PriLOSEC) 20 mg capsule Take 1 capsule (20 mg total) by mouth in the morning. Activetake 1 tablet by mouth before mealtimeomeprazole OTC (PriLOSEC OTC) 20 MG EC tablet Take 20 mg by mouth in the morning. Take before meals. Activetake 20 mg by mouth once daily in the morningOMEPRAZOLE PO Take 20 mg by mouth daily. am ActiveOmeprazole (PRILOSEC) 40 mg capsule Take 20 mg by mouth twice daily. 0 Activetake 1 capsule by mouth once dailyomeprazole [address] Take 1 capsule by mouth daily. 0 ActiveOmeprazole 40 mg TAKE 2 CAPSULES DAILY Activetake 1 capsule by mouth once dailyOmeprazole 40 MG 1 capsule 30 minutes before morning meal Orally Once a day ActiveComment on above:Take 20 mg by mouth twice daily. 24 hr oxybutynin chloride 5 mg extended release oral tablet (11 sources)Cholinergic Muscarinic AntagonistStart: 17-49-3196snwz 1 tablet by mouth every twenty-four hoursDitropan XL 5 MG 1 tablet Orally Once a day for 90 days Jun, Activetake 1 tablet by mouth every twenty-four hours in the morningoxybutynin XL (Ditropan-XL) 5 MG 24 hr tablet Take 5 mg by mouth in the morning. Do not crush, chew, or split. . Activemicroencapsulated potassium chloride 20 meq extended release oral tablet (20 sources)Start: 74-11-1146cwig 1 tablet by mouth once daily at mealtimeStart: 35-64-2761Tihjxudzq Chloride (Uad-Obeq-Lyl 10) 10 mEq oral tablet, extended release 10 mEq = 1 tab(s), Refills(s) 0 Start Date: 06/22/24 Status: Ordered Repeat number: 1Start: 51-51-3852Ifsbloeuu Chloride (Jgz-Ouqn-Nvo 10) 10 mEq oral tablet, extended release 10 mEq = 1 tab(s), Refills(s) 0 Start Date: 06/22/24 Status: OrderedStart: 10-26-2023 End: 26-22-5181roxfmeukb chloride (K-TAB,KLOR-CON) 10 MEQ CR tablet TAKE 1 TABLET IN THE MORNING 90 tablet 3 11/29/2024 ActiveStart: 03-31-2022 End: 46-15-776005 mEq, Oral, DAILY, First dose on Thu07/08/23 at 0900, Until Discontinuedpotassium chloride CR (Klor-Con M10) 10 MEQ ER tablet Take 10 mEq by mouth Daily Do not crush or chew. Activetake 1 tablet by mouth every twenty- four hoursKlor-Con M20 20 MEQ 1 tablet with food Orally Once a day ActiveComment on above:Take 10 mEq by mouth once daily.PreserVision AREDS (2 sources)Start: 81-75-5764HsdkyaOjmwdh AREDS Refill(s) 0 Start Date: 02/14/25 Status: Ordered Repeat number: 1sulfamethoxazole 800 mg / trimethoprim 160 mg oral tablet (7 sources)Dihydrofolate Reductase Inhibitor Antibacterial, Sulfonamide AntimicrobialStart: 68-11-9062hvcu 1 tablet by mouth every twenty-four hours Bactrim DS 800-160 MG 1 tablet Orally daily for 30 days Oct, Active Start: 27-45-9447wxag 1 tablet by mouth every twelve hoursBactrim DS 800-160 MG 1 tablet Orally Twice a day for 10 day(s) Oct, ActiveSUMAtriptan 25 mg oral tablet (20 sources)Serotonin-1b and Serotonin-1d Receptor AgonistStart: 05-23-2024 End: 57-71-7989ngec 1 tablet by mouth once as needed for headacheSumatriptan Succinate 25 mg tablet Discontinued 25 MG PO Once as needed for migraine headache May 23, 2024 2:02pm February 03, 2025 8:46amStart: 09-12-2016 SUMAtriptan 25 mg Tab 25 mg = 1 tab(s), Refills(s) 0 Start Date: 06/22/24 Status: Ordered Repeat number: 1Comment on above:Take 25 mg by mouth as needed. tiZANidine 4 mg oral tablet (3 sources)Central alpha-2 Adrenergic AgonistStart: 96-87-8164awtg 1 tablet by mouth once daily at bedtime as neededtraZODone hydrochloride 50 mg oral tablet (20 sources)Serotonin Reuptake InhibitorStart: 05-09-2024 End: 77-13-5382mtnFCOGUR 50 mg Tab 50 mg = 1 tab(s), Refills(s) 0 Start Date: 06/22/24 Status: Ordered Repeat number: 1triamcinolone acetonide 1 mg/ml topical cream (2 sources)CorticosteroidStart: 67-96-8390Lglfgnzzvxyge Acetonide 0.1 % 1 application Externally Twice a day for 7 days Oct, Activetrospium chloride 20 mg oral tablet (20 sources)Cholinergic Muscarinic AntagonistStart: 15-70-0252ovzlesdx 20 mg oral tablet Refills(s) 0 Start Date: 02/14/25 Status: Ordered Repeat number: 1 Start: 06-24-2023 End: 68-08-1118nqfy 1 tablet by mouth once dailyTrospium 20 mg tablet Discontinued 20 MG PO Daily June 24, 2023 1:00am June 29, 2023 2:3 3pmStart: 06-24-2023 End: 65-94-7923Kkhsiaxa Discontinued MG PO June 24, 2023 1:00am June 29, 2023 2:33pmStart: 05-27-2023 End: 30-83-4814zadl 1 mg by mouth every twenty-four hoursTrospium 60 mg capsule,extended release 24hr Discontinued MG PO June 24, 2023 1:00am 2023 2:33pmTrospium Chloride ActiveVitamins A,C,N-Egfx-Dtajtz (Preservision Areds) 4,296 mcg-226 mg-90 mg capsule (4 sources)Start: 45-77-0343maif 1 capsule by mouth twice dailyVitamins A,C,N-Zavb-Lwgflh (Preservision Areds) 4,296 mcg-226 mg-90 mg capsule Active 1 CAP PO Twice daily October 27, 2023 11:00pmStart: 29-68-8448zgds 1 capsule by mouth twice dailyVitamins A,C,W-Ryro-Pdnapn (Preservision Areds) 4,296 mcg-226 mg-90 mg capsule Active 1 CAP PO Twice daily October 28, 2023 12:00am Completed/Discontinued Medications MedicationDrug Class(es)DatesSig (Normalized)Sig (Original)acetaminophen 500 mg oral tablet (11 sources)Start: 07-07-2023 End: 01-55-2386rjzl 1 tablet by mouth every six hours1,000 mg, Oral, EVERY 6 HOURS NON-STANDARD, First dose on Thu07/07/23 at 1845, Until Discontinued, Po st-op/Post-ProcStart: 83-61-9138jkff 2 tablets by mouth every four hours as neededAcetaminophen 325 MG tablet Take 2 tablets by mouth every 4 hours as needed for Mild Pain. 50 tablet 1 07/07/2023 ActiveStart: 55-02-7783usii 1 dose by mouth every hour1,000 mg, Oral, ONCE DIRECTED, 1 dose, Starting on Thu07/07/23 at 1003, Until Thu07/07/23 at 1043,See admin instructions, Administer 1 hour preop., Pre-op/Pre-Procaspirin 325 mg oral tablet (4 sources)Platelet Aggregation Inhibitor, Nonsteroidal Anti-inflammatory Drug End: 73-96-3305grge 1 tablet by mouth once dailyAspirin 325 MG tablet Take 1 tablet by mouth daily. 2023 Discontinued (Stop Taking at Discharge) azithromycin 250 mg oral tablet (11 sources)Macrolide AntimicrobialStart: 04-30-2024 End: 07-98-5561Yzcqwjjsimgn 250 mg tablet Discontinued 0 PO .COMPLEX April 30, 2024 1:00am May 09, 2024 10:21am For 250 mg dose pack: take 500 mg today (day 1), then 250 mg for 4 days (days 2-5) POStart: 95-53-7088Vpqkartvalzw 250 MG as directed Orally 2 tabs po today, then 1 tab daily x 4 more days for Mar, ActiveStart: 15-18-7215Qgetcrerqrxf 250 MG as directed Orally 2 tabs po today, then 1 tab daily x 4 more days for Jul, Activebisacodyl 10 mg rectal suppository (1 source)Stimulant LaxativeStart: 07-07-2023 End: 07-17-6121vtrp 10 mg rectal route once daily as needed for xgfrtlivyrax36 mg, Rectal, DAILY NEEDED, Starting on Thu07/07/23 at 1637, Until Thu07/08/23 at 1920, constipation, Post-op/Post-Proccalcium chloride 0.0014 meq/ml / potassium chloride 0.004 meq/ml / sodium chloride 0.103 meq/ml / sodium lactate 0.028 meq/ml injectable solution (1 source)Start: 07-07-2023 End: 51-32-3036Xuvlrtzsxpp, at 75 mL/hr, CONTINUOUS, Starting on Thu07/07/23 at 1015, Until Thu07/07/23 at 1609, Pre-op/Pre-ProcceFAZolin 2000 mg injection (1 source)Cephalosporin AntibacterialStart: 07-07-2023 End: 36-19-1053bose 2 g intravenously every eight hours2 g, Intravenous, Administer over 30 Minutes, EVERY 8 HOURS NON-STANDARD, First dose on Thu07/07/23 at 2145, Until Discontinued, Post-op/Post-ProccycloSPORINE Opth 0.05% Emul (8 sources)Start: 80-08-6972nynixYPFWJQS Opth 0.05% Emul 1 drop(s), Refill(s) 0 Start Date: 06/22/24 Status: Ordered Repeat number: 1Start: 06-22-2024 cycloSPORINE Opth 0.05% Emul 1 drop(s), Refill(s) 0 Start Date: 06/22/24 Status: Ordereddexamethasone phosphate 10 mg/ml injectable solution (1 source)CorticosteroidStart: 2023 End: 63-90-4459djnl 10 mg intravenously every twenty-four hours10 mg, Intravenous, EVERY 24 HOURS, 1 dose, First dose on Thu07/08/23 at 1530, 24 hours post op, Post-op/Post-ProcStart: 2023 End: 61-44-7841ccoe 10 mg intravenously every twenty-four hours10 mg, Intravenous, EVERY 24 HOURS, 1 dose, First dose on Thu07/08/23 at 1530, 24 hours post op, Post-op/Post-Procdocusate sodium 50 mg / sennosides, residential 8.6 mg oral tablet (1 source)Start: 07-07-2023 End: 67-43-2085gvev 2 tablets by mouth twice daily as needed for constipation2 tablet, Oral, 2 TIMES DAILY NEEDED, Starting on Thu07/07/23 at 1637, Until Thu07/08/23 at 1920, constipation, Post-op/Post-Procferrous sulfate 325 mg oral tablet (5 sources)Start: 11-22-2021 End: 44-04-1343gbab 1 tablet by mouth once daily at breakfastferrous sulfate (FeroSuL) 325 (65 FE) mg tablet Take 1 tablet (325 mg total) by mouth daily with breakfast. 0 11/22/2021 06/02/2023 Discontinued (Therapy completed)1 ml HYDROmorphone hydrochloride 1 mg/ml cartridge (1 source)Opioid AgonistStart: 07-07-2023 End: 08-12-8733zhsr 0.5 mg intravenously every four hours as needed0.5 mg, Intravenous, EVERY 4 HOURS NEEDED, Starting on Thu07/07/23 at 1637, Until Thu07/08/23 at 1920, Severe Pain, Post-op/Post-Procketorolac tromethamine 10 mg oral tablet (8 sources)Nonsteroidal Anti-inflammatory Drug, Cyclooxygenase InhibitorStart: 06-24-2023 End: 91-15-6760dxwe 1 tablet by mouth onceKetorolac 10 mg tablet Discontinued 10 MG PO Once June 24, 2023 1:00am June 29, 2023 2:31pm methylPREDNISolone 4 mg oral tablet (8 sources)CorticosteroidStart: 06-24-2023 End: 35-53-6879Bkptvdocymoquvospx 4 mg tablets,dose pack Discontinued 4 MG PO .COMPLEX June 24, 2023 1:00am June 29, 2023 2:31pm 4 mg orally; nitrofurantoin, macrocrystals 100 mg oral capsule (4 sources)Nitrofuran AntibacterialStart: 11-29-2024 End: 32-52-1148sgql 1 capsule by mouth twice daily at mealtimeNitrofurantoin Macrocrystal 100 mg capsule Discontinued 100 MG PO Twice daily November 29, 2024 12:00am December 29, 2024 11:00am must administer with a meal/food Omeprazole 40 mg capsule,delayed release(DR/EC) (2 sources)Start: 12-22-2023 End: 90-33-1573Zlwpqskxrh 40 mg capsule,delayed release(DR/EC) Discontinued 0 .ROUTE .COMPLEX 180 December 22, 2023 10:13am April 30, 2024 10:34am TAKE 2 CAPSULES DAILY2 ml ondansetron 2 mg/ml injection (1 source)Serotonin-3 Receptor AntagonistStart: 07-07-2023 End: 84-65-5847wvfv 4 mg intravenously every four hours as needed4 mg, Intravenous, EVERY 4 HOURS NEEDED, Starting on Thu07/07/23 at 1637, Until Thu07/08/23 at 1920, Nausea / Vomiting, Post-op/Post-Proc12 hr orphenadrine citrate 100 mg extended release oral tablet (8 sources)Muscle RelaxantStart: 06-24-2023 End: 31-86-0534Utzrnbsdlhah Citrate 100 mg tablet extended release Discontinued MG PO June 24, 2023 1:00am June 29, 2023 2:32pmStart: 06-24-2023 End: 20-72-8026Dxneuuhjzyow Citrate Discontinued MG PO June 24, 2023 1:00am June 29, 2023 2:32pmoxyCODONE hydrochloride 5 mg oral tablet (6 sources)Opioid AgonistStart: 07-07-2023 End: 45-49-4729sxec 5-10 mg by mouth every four hours as needed5-10 mg, Oral, EVERY 4 HOURS NEEDED, Starting on Thu07/07/23 at 1637, Until Thu07/08/23 at 1920, moderate-severe pain, If pain unrelieved with oxycodone, contact pharmacist to enter order for Oxycodone ER 10mg PO Q12H for 3 days, Post-op/Post-ProcStart: 07-07-2023 End: 83-43-5768fqwg 1-2 tablets by mouth every four to six hours as needed for painoxyCODONE 5 MG tablet Indications: Acute postoperative pain of right hip Take 1-2 tabs po q 4-6 hours prn pain. Wean as tolerated. 30 tablet 07/07/2023 Activepantoprazole 40 mg delayed release oral tablet (1 source)Proton Pump InhibitorStart: 2023 End: 35-89-9545hupc 40 mg by mouth once daily40 mg, Oral, DAILY, First dose on Thu07/08/23 at 0900, Until Discontinued, Indications: Continuationof Home Therapy, Inpt Stress Ulcer Prophylaxispotassium & sodium phosphates 280-160-250 MG Pack (4 sources) End: 27-57-0798bqtsbrwef & sodium phosphates 280-160-250 MG Pack Take by mouth. 2023 Discontinued (Stop Taking at Discharge)potassium & sodium phosphates 280-160-250 MG Pack Take by mouth. Activepotassium & sodium phosphates 280-160-250 MG Pack Take by mouth. 0 ActivepredniSONE 20 mg oral tablet (6 sources)Start: 04-30-2024 End: 33-95-5053ltxy 1 tablet by mouth once dailyPrednisone 20 mg tablet Discontinued 20 MG PO Daily 3 April 30, 2024 1:00am May 09, 2024 10:21amROPivacaine (NAROPIN) 1 % 400 mg, EPINEPHrine PF (ADRENALIN) 1 MG/ML 1 mg, Ketorolac (TORADOL) 30 MG/ML 30 mg, cloNIDine 100 MCG/ML 153 mcg, Sodium chloride 0.9% 45 mL in viaflex container 1 Each 88.53 mL (total volume) (1 source)Start: 07-07-2023 End: 03-33-1949zpks 1 dose intravenously onceIntra-articular, INTRA-OP ONCE, 1 dose, Starting on Thu07/07/23 at 1433, Until Thu07/07/23 at 1433, 88.53 mL, To be mixed by pharmacy NOT for IV use, Intra-op/Intra-Ctxp6944 ml sodium chloride 9 mg/ml injection (1 source)Start: 07-07-2023 End: 36-64-9479Gmuvizxgiyh, at 75 mL/hr, CONTINUOUS, Starting on Thu07/07/23 at 1645, Until Thu07/08/23 at 1920, Convert IV to PRN adapter post op day 1 if adequate oral intake, Post-op/Post-Procsodium phosphate, dibasic 35.5 mg/ml / sodium phosphate, monobasic 96.4 mg/ml enema (1 source)Start: 07-07-2023 End: enema, Rectal, DAILY NEEDED, Starting on Thu07/07/23 at 1637, Until Thu07/08/23 at 1920, Refractory Constipation, use per package instructions, Post-op/Post-Proctemazepam 30 mg oral capsule (20 sources)BenzodiazepineStart: 12-28-2024 End: 40-80-3663kdfz 1 capsule by mouth once daily at bedtime as neededTemazepam 30 mg capsule Discontinued 30 MG PO Daily at bedtime as needed December 28, 2024 12:00am February 03, 2025 8:44amStart: 08-23-2018 End: 29-44-5889ogtv 1 capsule by mouth once daily at bedtimeTemazepam 30 mg capsule Discontinued 30 MG PO Daily at bedtime February 01, 2024 11:46am February 15, 2024 9:27amtemazepam (Restoril) 22.5 MG capsule Take 30 mg by mouth as needed at bedtime for sleep Activetake 2 capsules by mouth at bedtime as needed for sleeptemazepam 15 MG capsule Take 2 capsules by mouth At bedtime as needed for Sleep. Activetake 1 capsule by mouth at bedtime as needed for sleeptemazepam 15 MG capsule Take 1 capsule by mouth At bedtime as needed for Sleep. 0 Activetranexamic acid 650 mg oral tablet (1 source)Antifibrinolytic AgentStart: 07-07-2023 End: 36-94-3656ousz 1 dose by mouth every two hours1,950 mg, Oral, ONCE DIRECTED, 1 dose, Starting on Thu07/07/23 at 1003, Until Thu07/07/23 at 1042,See admin instructions, Administer 2 hours preop, Pre-op/Pre-Lepa444 ml vancomycin 5 mg/ml injection (2 sources)Glycopeptide AntibacterialStart: 07-07-2023 End: ,000 mg, Intravenous, ONCE, 1 dose, On Thu07/08/23 at 0145, Infuse at a rate of 1 gram/hour. Extravasation Risk, Post-op/Post-Proczolpidem tartrate 5 mg oral tablet (1 source)gamma-Aminobutyric Acid-ergic AgonistStart: 07-07-2023 End: 61-16-9729aizm 5 mg by mouth once daily at bedtime as needed for sleep5 mg, Oral, DAILY AT BEDTIME NEEDED, Starting on Thu07/07/23 at 1637, Until Thu07/08/23 at 1920, Sleep, Post-op/Post-Proc Problems Active Problems Problem ClassificationProblemDateDocumented DateEpisodic/ChronicAbdominal hernia (1 source)Diaphragmatic hernia; Translations: [Diaphragmatic hernia without mention of obstruction or gangrene]EpisodicAcute and unspecified renal failure (1 source)Acute kidney failure, unspecified; Translations: [ACE (acute kidney injury)]Onset: 47-48-8593JperhwxuEmbue bronchitis (1 source)Acute bronchitis due to other specified organismsEpisodicAllergic reactions (10 sources)Rlmvji71-84-9239LzazrclmGiho and rectal conditions (10 sources)Disorder of ulcgic57-44-9843MxeigxstNitxzqs disorders (7 sources)Acute stress disorder; Translations: [Acute stress reaction] 49-36-8277NyeqcnnLykbysax of urinary tract (7 sources)History of calculus of kidney; Translations: [Personal history of urinary calculi]Onset: 33-28-2924HjenmzjxAtlidh of breast (10 sources)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; Translations: [Carcinoma in situ of breast]Onset: 135707-75-7905IigrvlzWtomtx of breast (20 sources)History of malignant neoplasm of breast; Translations: [Personal history of malignant neoplasm of breast]Onset: 771959-34-6983Xcplweef Cardiac dysrhythmias (20 sources)Chronic atrial fibrillation; Translations: [Chronic atrial fibrillation, unspecified]Onset: 12-11-2016 Resolved: 076373-29-6689YkwdsjzImivbbr dysrhythmias (20 sources)Palpitations; Translations: [Palpitations]Onset: 06-30-2018 60-91-2887RfjcvlrtUcbhggc kidney disease (6 sources)Chronic kidney disease stage 3A ; Translations: [Stage 3a chronic kidney disease]76-76-5064QwgjuxvWerxlwixduyf of device; implant or graft (2 sources)Joint pain; Translations: [Pain due to internal orthopedic prosthetic devices, implants and grafts,initial encounter]43-15-2725CyjpvloxR Codes: Natural/environment (1 source)Exposure to other specified factors, initial encounter; Translations: [EXPOSURE OTHER SPEC FACTORS INITIAL]Onset: 51-60-5873ZajfmzvfPgreqaktha disorders (1 source)Gastro-esophageal reflux disease with esophagitis; Translations: [Gastro-esophageal reflux disease with esophagitis, without bleeding]Onset: 72-94-7703LsgqpweRakisfjqq hypertension (20 sources)Essential (primary) hypertension; Translations: [Essential hypertension]Onset: 19-97-2021RgivektDohny and electrolyte disorders (14 sources)Dehydration; Translations: [Hypokalemia]Onset: 46-70-8722Fdtswxiq Gastroduodenal ulcer (except hemorrhage) (1 source)Peptic ulcer, site unspecified, unspecified as acute or chronic, without hemorrhage or perforation;Translations: [PU SITE UNS UNS AC/CHR NO HEM/PERF]Onset: 87-76-2537JhxxufdRipqnvorsghmy symptoms and ill-defined conditions (17 sources)Mixed incontinence; Translations: [Incontinence]Onset: 02-11-2023 ChronicGenitourinary symptoms and ill-defined conditions (20 sources)Dysuria; Translations: [Dysuria]Onset: 38-68-0678GqgunwntFmhaflsz; including migraine (13 sources)Migraine; Translations: [Migraine, unspecified, not intractable, without status migrainosus]ChronicHeadache; including migraine (4 sources)Headache; including migraine; Translations: [HEADACHE UNSPECIFIED] Onset: 54-35-5492Fixfc disorders and dislocations; trauma-related (3 sources)Derangement of left knee; Translations: [Unspecified internal derangement of left knee]Onset: 547662-65-3471BjxaddpKpglawm and fatigue (13 sources)Other fatigue; Translations: [Fatigue]Onset: 97-97-2597Maenwuis Menopausal disorders (2 sources)Atrophic vaginitis; Translations: [Postmenopausal atrophic vaginitis] Onset: 72-45-6166BfckwjxSglutmyckvnsew (15 sources)Unspecified osteoarthritis, unspecified site; Translations: [Localized, primary osteoarthritis of the pelvic region and thigh]Onset: 963344-04-8298OpcfhoxMvwvi aftercare (1 source)Other lobsterman (current) drug therapy; Translations: [OTH ASSISTED CURRENT DRUG THERAPY]Onset: 88-32-2920KtufpzfkXidiz aftercare (5 sources)Long-term current use of anticoagulant; Translations: [vermin exterminator (current) use of anticoagulants]Onset: 70-04-5158FiobxntjIrqwx bone disease and musculoskeletal deformities (12 sources)Other specified disorders of bone, shoulder; Translations: [Pain of right scapula]EpisodicOther connective tissue disease (13 sources)History of repair of hip joint; Translations: [Presence of unspecified artificial hip joint]Onset: 537022-63-8976TvlynflFdyrc connective tissue disease (2 sources)History of total replacement of right hip joint; Translations: [Presence of right artificial hip joint]12-96-5480RaahwkuWzkva connective tissue disease (2 sources)Presence of right artificial hip joint; Translations: [Presence of right artificial hip joint]Onset: 00-53-9897MaytkjfFcxnp diseases of bladder and urethra (11 sources)Overactive bladder; Translations: [Overactive bladder]ChronicOther diseases of bladder and urethra (3 sources)Overactive bladderChronicOther injuries and conditions due to external causes (4 sources)Foreign body in left ear, initial encounter; Translations: [FOREIGN BODY LT EAR INITIAL ENCNTR]Onset: 14-47-0187VqppajxcMdqzt lower respiratory disease (1 source)Personal history of pneumonia (recurrent); Translations: [PERSONAL HX OF PNEUMONIA RECURRENT]Onset: 41-63-3499LlzssumuYjdba nervous system disorders (3 sources)Chronic pain; Translations: [Other chronic pain]Onset: 09-12-2022 48-97-2073WtgghrtYaqrg nervous system disorders (9 sources)Hip pain; Translations: [Other acute postprocedural pain]07-07-2023 EpisodicOther non-traumatic joint disorders (3 sources)Derangement of right shoulder joint; Translations: [Other specific joint derangements of right shoulder, not elsewhere classified]Onset: 09-12-2022 00-82-9355OntzumiOckry non-traumatic joint disorders (10 sources)Arthralgia of the pelvic region and thigh; Translations: [Pain in right hip]EpisodicOther non-traumatic joint disorders (3 sources)Pain in right hip joint; Translations: [Pain in right hip]06-23-2023 EpisodicOther skin disorders (1 source)Dyshidrosis [pompholyx]EpisodicOther skin disorders (2 sources)Inflamed seborrheic keratosis; Translations: [Inflamed seborrheic keratosis]06-14-3126NbmwkujkTjems skin disorders (2 sources)Skin tag; Translations: [Other hypertrophic disorders of the skin] 72-96-0389UnpvckivIujpn skin disorders (2 sources)Milia; Translations: [Epidermal cyst]47-79-0673MfzyolgmXneul upper respiratory infections (14 sources)Acute upper respiratory infection; Translations: [Acute upper respiratory infection, unspecified]Onset: 72-43-7014QyccfwlbOzxwze media and related conditions (14 sources)Acute bilateral otitis media ; Translations: [Otitis media, unspecified, bilateral]95-79-5650OtfysfolKejxculj of female genital organs (1 source)Herniation of rectum into vagina; Translations: [Rectocele without mention of uterine prolapse]Onset: 45-32-3780FbjqsqrJvxfvval codes; unclassified (1 source)Acquired absence of other specified parts of digestive tract; Translations: [ACQ ABSENCE OTH PART DIGESTV TRACT]Onset: 54-42-4507Deuailwo Residual codes; unclassified (1 source)Acquired absence of both cervix and uterus; Translations: [ACQUIRED ABSENCE BOTH CERVIX AND UTERUS]Onset: 35-55-3540OzxxesldVdnxjwqw codes; unclassified (20 sources)Insomnia; Translations: [Insomnia, unspecified]82-11-5665Byirggle Residual codes; unclassified (2 sources)Insomnia, unspecified; Translations: [Insomnia, unspecified] 27-06-4196TvfebkpzUaqggvgd codes; unclassified (1 source)Family history of breast cancer; Translations: [Family history of malignant neoplasm of breast]EpisodicResidual codes; unclassified (1 source)Family history of malignant neoplasm of gastrointestinal tract; Translations: [Family history of malignant neoplasm of digestive organs]Episodic Retinal detachments; defects; vascular occlusion; and retinopathy (11 sources)Degenerative disorder of macula ; Translations: [Unspecified macular degeneration]18-25-7903KwqzddbWwixsvuvq and history of mental health and substance abuse codes (16 sources)Personal history of nicotine dependence; Translations: [H/O: Disorder]Onset: 26-02-8886DkizepugCbhwegkkogc; intervertebral disc disorders; other back problems (3 sources)Degeneration of lumbosacral intervertebral disc; Translations: [DDD (degenerative disc disease), lumbosacral]Onset: hronic Superficial injury; contusion (1 source)Abrasion of left ear, initial encounter; Translations: [ABRASION LEFT EAR INITIAL ENCOUNTER]Onset: 19-16-8640HtltsymkQpoosqd (12 sources)Syncope and collapse; Translations: [Syncope]Onset: 12-18-2024 11-64-9338GremaqzjKmupkuokkhww (1 source)CONTACT W/AND (SUSP) EXPOS COVID-19; Translations: [CONTACT W/AND (SUSP) EXPOS COVID-19]Onset: 86-78-0501Vntaqhgyawxb (10 sources)Drug therapy gwpislj68-72-6196Pedigol tract infections (20 sources)Urinary tract infection, site not specified; Translations: [Acute urinary tract infection]Onset: 62-80-0996TbkpzzuqLicox infection (12 sources)Disease caused by 2019-nCoV; Translations: [COVID-19] Past or Other Problems Problem ClassificationProblemDateDocumented DateEpisodic/ChronicCoronary atherosclerosis and other heart disease (20 sources)Coronary arteriosclerosis; Translations: [Atherosclerotic heart disease of [place] coronary artery without angina pectoris]Onset: 07-29-2021 Resolved: [id number]jhyqn ulcer (except hemorrhage) (2 sources)Personal history of peptic ulcer disease; Translations: [Acute gastric ulcer without hemorrhage, without perforation AND without obstruction] Onset: 10-10-6139BupkvwwbElyw disorders (20 sources)Mood disordersOnset: Other connective tissue disease (1 source)Muscle pain; Translations: [Unspecified myalgia and myositis]Onset: 65-09-9233LuizvfkzRizrv endocrine disorders (1 source)Disorder of endocrine system; Translations: [Unspecified endocrine disorder]Onset: 91-54-8469VhkfyiloKoxis liver diseases (1 source)Elevated levels of transaminase & lactic acid dehydrogenase; Translations: [Nonspecific elevation of levels of transaminase or lactic acid dehydrogenase (LDH)]Onset: 02-68-4929EijwicflGwhlc lower respiratory disease (20 sources)Dyspnea; Translations: [Shortness of breath]Onset: 05-12-2018 Resolved: [id number] lower respiratory disease (1 source)Shortness of breath; Translations: [Shortness of breath]Onset: 92-96-6711BajqbgskHwrkm nervous system disorders (3 sources)Antalgic gait; Translations: [Other abnormalities of gait and mobility]Onset: [id number] non-traumatic joint disorders (3 sources)Pain in right hip; Translations: [Hip pain, right]Onset: 08-20-2023 EpisodicOther nutritional; endocrine; and metabolic disorders (2 sources)Body mass index 25-29 - overweight; Translations: [Body mass index 29.0-29.9, adult]Onset: 89-28-7220ZlocwdvlLwidp nutritional; endocrine; and metabolic disorders (1 source)Overweight; Translations: [Overweight]Onset: 01-24-2968LppshgeqDxwxt screening for suspected conditions (not mental disorders or infectious disease) (20 sources)Patient encounter status; Translations: [Encounter for screening mammogram for malignant neoplasm of breast]Onset: 41-94-5314SlcdvbotCsuek skin disorders (1 source)Alopecia; Translations: [Nonscarring hair loss, unspecified]Onset: 66-29-2948CfpwztweBabvl skin disorders (1 source)Other seborrheic keratosis; Translations: [Seborrheic keratosis]Onset: 78-17-8949KiemoupfSyswatbzt (except that caused by tuberculosis or sexually transmitted disease) (1 source)Pneumonia; Translations: [Pneumonia, unspecified organism]Onset: 01-38-2480UrkyrqbiDvrxmsovgmk; intervertebral disc disorders; other back problems (16 sources)Low back pain; Translations: [Lumbar back pain]Onset: 07-04-2013 02-56-6120KssphtchGwdsstb and strains (4 sources)Tendon rupture - hip; Translations: [Strain of muscle, fascia and tendon of right hip, initial encounter]Onset: 565726-88-3212Sztnernf Unclassified (6 sources)Lumbar back pain; Translations: [Lumbar back pain]Unclassified (1 source)Right lumbar pain M54.50Unclassified (1 source)History of total replacement of right hip guapa42-53-7911 Results Test NameValueInterpretationReference RangeFacilityCoding Summaryon 03-01-2025 Coding SummaryHTMLBase 64 ZzmcznftNQa1lQg+PGhlYWQ+HQ4OUHUgG58lbOEfqB9vK3NCOVvZVnlnTZHKHLaXKnOpdtVzQY7rdLAt ZXJu [file] ZTo (more content not included)...[facility] Urineon 02-25-2025 Bacteria identified Cx Nom (U)Microbiology PROCEDURE: Urine Culture [R1] SOURCE: U CleanCatch BODY SITE: COLLECTED DATE/TIME: 02/23/2025 11:21 EDT RECEIVED DATE/TIME: 02/23/2025 16:47 EDT START DATE/TIME: 02/23/2025 16:47 EDT FREE TEXT SOURCE: Maria E Osman PA-C, PA-C, Maria E FINAL REPORTS Final Report [] Verified Date/Time: 02/25/2025 08:35 EDT <10,000 cfu/ml Mixed skin contaminants Mixed glo (multiple species present) >3 colony types Performing Locations R1: This test was performed at: [facility], [address] [place] [address], [address]- , , BoouzlQpzjdgCorey HospitalComment on above:Performed By: #### [id number] #### [facility] [address] [place] [id number], Hospital Report Scanon 09-75-4127YgiEbybqs [facility] Provider Orderson 78-60-3591Vjedrjhh Orders [id number]#1.00[facility] Ambulatory Visit Summaryon 56-20-5480Nnpznqxest Visit SummaryAmbulatory Visit Summary BETTIE BURNS :1945 Visit Date:02/14/2025 Ambulatory Visit Instructions Your Diagnosis Frequent UTI Mixed incontinence History of kidney stones Microscopic hematuria Anticoagulated Former smoker Your Care Team Attending Physician - Jacqui MOTT, Maria E Primary Care Physician - ELLIOT STARKS MD This Is Your Medications List Misc Prescription (BACLOFEN 10 MG TABLET) Non-Formulary Medication (Neuveria Vitamin OTC) apixaban (Eliquis 5 mg oral tablet) atenolol (atenolol 50 mg Tab) bifidobacterium longum (Align) cephalexin (cephalexin 500 mg Cap) cranberry cycloSPORINE ophthalmic (cycloSPORINE Opth 0.05% Emul) estradiol topical (Estrace 0.1 mg/g Cream) flecainide (flecainide 50 mg Tab) hydrochlorothiazide (hydrochlorothiazide 25 mg Tab) lactobacillus acidophilus (Acidophilus Probiotic Blend) lisinopril (lisinopril 20 mg Tab) magnesium citrate multivitamin with minerals (PreserVision AREDS) naproxen (Aleve) omeprazole (omeprazole 40 mg Cap-DR) potassium chloride (Potassium Chloride (Owb-Ppzi-Xxd 10) 10 mEq oral tablet, extended release) sumatriptan (SUMAtriptan 25 mg Tab) trazodone (traZODONE 50 mg Tab) trospium (trospium 20 mg oral tablet) Procedures Performed Appendectomy, Cardiac ablation system, Cataracts, Cholecystectomy, Hip replacement, Lumpectomy of left breast, Rotator cuff, ROSA - Total abdominal hysterectomy. Discharge Vitals Heart Rate (Peripheral) 58 Blood Pressure 129/57 Height 165 cm Height 65 in Weight 81.5 kg Weight 179.677 lb BMI 29.94 What to do next Scheduled Follow-Up Appointments Thursday 8:30 AM EST With: Maria E Osman PA-C Where: [facility] [address] [address]- You Need to Schedule the Following Appointments Follow Up with Maria E Osman PA-C, URL When: In 2 months Comments: w/ PVR Where: Medications What How Much When Why Instructions Unchanged apixaban (Eliquis 5 mg oral tablet) Unchanged atenolol (atenolol 50 mg Tab) 1 Tablets Unchanged bifidobacterium longum (Align) By Mouth Every day Unchanged cephalexin (cephalexin 500 mg Cap) TAKE 1 CAPSULE BY MOUTH TWICE A DAY FOR 7 DAYS Unchanged cranberry Unchanged cycloSPORINE ophthalmic (cycloSPORINE Opth 0.05% Emul) 1 Drops Unchanged estradiol topical (Estrace 0.1 mg/ g Cream) See instructions Vaginal atrophy Recurrent UTI Apply pea sized amount to urethra/ vagina 3x a week for 1 month, then 2x a week afterwards Unchanged flecainide (flecainide 50 mg Tab) 1 Tablets Unchanged hydrochlorothiazide (hydrochlorothiazide 25 mg Tab) By Mouth Every day Unchanged lactobacillus acidophilus (Acidophilus Probiotic Blend) By Mouth Every day Unchanged lisinopril (lisinopril 20 mg Tab) Unchanged magnesium citrate Unchanged Misc Prescription (BACLOFEN 10 MG TABLET) 0 Unchanged multivitamin with minerals (PreserVision AREDS) Unchanged naproxen (Aleve) Unchanged Non-Formulary Medication (Neuveria Vitamin OTC) Unchanged omeprazole (omeprazole 40 mg Cap-DR) 1 Capsules Unchanged potassium chloride (Potassium Chloride (Auc-Zmcr-Tnt 10) 10 mEq oral tablet, extended release) 1 Tablets Unchanged sumatriptan (SUMAtriptan 25 mg Tab) 1 Tablets Unchanged trazodone (traZODONE 50 mg Tab) 1 Tablets Unchanged trospium (trospium 20 mg oral tablet) Allergies Ambien Levaquin Morphine Sulfate Ultram baclofen [...] you for choosing us for your care. Education Materials Urinary Tract Infection, Adult A urinary tract infection (UTI) is an infection of any part of the urinary tract. The urinary tractincludes the kidneys, ureters, bladder, and urethra. These organs make, store, and get rid of urinein the body. An upper UTI affects the ureters and kidneys. A lower UTI affects the bladder and urethra. What are the causes? Most urinary tract infections are caused by bacteria in your genital area around your urethra, where urine leaves your body. These bacteria grow and cause inflammation of your urinary tract. What increases the risk? You are more likely to develop this condition if: ??? You have a urinary catheter that stays in place. ??? You are not able to control when you urinate or have a bowel movement (incontinence). ??? You are female a (more content not included)...[facility] Office/Clinic Noteon 56-76-2878Uhmumyq Office/Clinic NoteUrology Office/Clinic Note Chief Complaint f/u HPI Staff 79 year old female 2 month f/u Patient taking cephalexin right now she keeps getting uti's Patient denies any dysuria or gross hematuria. Denies any flank or abdomen pain. urgency, frequency, and leakage, patient feels like she is emptying bladder completely History of Present Illness I have reviewed and verified the staff HPI to be accurate for this encounter. Review of Systems PHQ Score Initial Depression Screen Score: 0 SCORE no fever, chills, malaise, myalgia. no abdominal pain, nausea, vomiting. Physical Exam Vitals & Measurements HR: 58(Peripheral) BP: 129/57 HT: 65 in HT: 165 cm WT: 179.677 lb WT: 81.5 kg BMI: 29.94 General: Well developed, well nourished, in no acute distress. Assessment/Plan 79 yo female pt here for 1 month f/u KML pt 1. Frequent UTI (N39.0: Urinary tract infection, [...] course of Cipro (unable to locate UCX) 01/25/25 - >100K E. Coli, tx w/ Macrobid x 7 days Typical UTI symptoms include urine odor, increased urgency and dysuria UA today with small blood only Last visit, pt tx for E. Coli UTI with 7 day course of Macrobid. Shares her sx resolved after Macrobid but UTI sx returned last week. She had 7 day script of Keflex on hand that she started taking and sx have since improved. She has 1 more day left of Keflex. No formal culture done. Reviewed UA today. No indication for culture given she is on antibiotics and sx improved. For UTI prevention, she was advised to take OTC herbal supplements and restart topical Estrace cream at last OV. Shares she is taking cranberry, D-mannose and probiotics. Admits to not being consistent with use of Estrace cream, using maybe 1x/week. Explained importance of estrogen cream and its role in UTI prevention. Recommend she use 2x/weekly. She is agreeable. -Cont Cranberry, D-mannose, probiotics -Cont Estrace cream, use 2x/week -Increase water intake, avoid bladder irritants -Pt to notify our office for future UTI sx (okay for UA drop off between now and f/u visit if having sxs) Ordered: [id number] Measure Post Void residual urine and/or bladder capacity by US- non-imaging Urnls Dip Stick Auto w/o Microscopy POC 50532 2. Mixed incontinence (N39.46: Mixed incontinence) S/p cysto/Botox 100 units 09/19/24 UUI>JESUS BBSQ 25 (21) Inital PVR 159 ml today, pt voided 100 ml at end of visit (45 ml prior) UA today w/ small blood only Previously tried Myrbetriq but had adverse effects including bilateral kidney pain, cold-like sxs Gemtesa cost-prohibitive. Trospium 60 mg ER denied by insurance. Ultimately switched back to Trospium 20 mg BID Previously, pt had c/o worsening urge incontinence. Using 6-7 pads/week. Drinking mostly water, 1 cup of coffee daily. Denied constipation. She underwent cysto/Botox given her symptoms. Initially pt reported frequency, urgency and UUI greatly improved after Botox, but pt shared a return of urgency and UUI at last visit. She was treated for E. Coli UTI with 7 day course of Macrobid at this visit. It was recommended to postpone repeat Botox given it had only been 4 months since her last Botox treatment and UTI likely contributing to bothersome urinary sx. Today, she reports urgency and UUI have worsened, but she is currently being treated for UTI. Shares when she does not have a UTI, she is not bothered by urgency/UUI. Again, recommend pt be free fromUTIs prior to considering repeat Botox, especially if she feels she is not bothered by OAB sx when she is wo infection. Recommend we reevaluate her sx in a couple months prior to considering repeat Botox. In the meantime, will focus on UTI prevention. She is agreeable to this plan. All questions answered. We reviewed her PVR which is elevated. Explained increased risk for urinary retention and need for catheter placement/CIC following Botox with elevated PVR. She verbalizes understanding. She was ableto void more at end of visit. Estimated PVR 59 ml after she voided more. -See #1 -Timed voids, voiding maneuvers -Increase water intake, avoid bladder irritants -Kegel/urge exercises -Follow up in 2 months w/ PVR, or sooner if needed Ordered: 66179 Measure Post Void residual urine and/or bladder capacity by US- non-imaging 3. History of kidney stones (Z87.442: Personal history of urinary calculi) [facility]U [facility] 3/17/25 - 3 mm right proximal ureteral stone w/ mild hydro CTAP wo con 08/15/24 - no visible stones or hydro Denies stone events, flank pain (more content not included)...[facility] HospitalComment on above:Result Comment: Electronically Signed By: Maria E Osman PA-C\.cassandra\Date and Time Signed: 02/14/25 12:02 EDTBasophils Auto (Bld) [#/Vol]Ordered By: Elliot Starks on 40-93-2758Nllmsgkvu (Bld) [#/Vol]0.1 10 3/uL 0.0-0.1FWilson Memorial HospitalBasophils/100 WBC Auto (Bld)Ordered By: Elliot Starks on 28-51-1875Miariofrq/100 WBC (Bld)1.3 %0.2-2.0[facility] CampusEosinophils/100 WBC Auto (Bld)Ordered By: Elliot Starks on 68-78-9730Idmnqdhpkko/100 WBC (Bld)3.7 %0.9-7.0[facility] Erythrocyte distribution width Auto (RBC) [Ratio]Ordered By: Elliot Starks on 43-95-0221Oolptiiatim distribution width (RBC) [Ratio]11.7 %11.0-15.0[facility] CampusFPG ECG *PCP OFFICE ONLY*on 82-64-5601GFS ECG *PCP OFFICE ONLY*[facility] [place] [address] Electrocardiograph Report Signed Patient: Bettie Burns MR#: [id number] : 1945 Acct:[id number] Age/Sex: 79 / F ADM Date: 02/03/25 Loc: [facility] Room: Type: [facility] Attending Dr: Elliot Starks MD Ordering Provider: [...] repolarization abnormality ( R in aVL , Bay product ) Abnormal ECG Confirmed by Marisa Willis ([id number]) on 02/03/2025 10:28:01 PM Referred By: Electronically Signed By: Marisa Willis Transcribed By: MUS Signed By Marisa Willis MD [address] [place] [address] Physician GroupGlomerular filtration rate (GFR) estimation in non- AmericanOrdered By: Elliot Starks on 62-31-3476HXV/1.73 sq M.predicted among non-blacks MDRD (S/P/Bld) [Vol rate/Area]42 mL/min/{1.73_m2}Low>=60 mL/min/1.73m 2FWilson Memorial Hospital Hematocrit Auto (Bld) [Volume fraction]Ordered By: Elliot Starks on 02-03-2025 Hematocrit (Bld) [Volume fraction]41.7 %36.0-48.0[facility] CampusHemoglobin [Mass/volume] in BloodOrdered By: Elliot Starks on 02-03-2025 Hemoglobin (Bld) [Mass/Vol]13.9 g/dL12.0-16.0[facility] Laboratory - Chemistry and Chemistry - challengeOrdered By: Elliot Starks on 95-62-9621Aylwrvh [Mass/Vol]10.0 mg/dL8.5-10.1FWilson Memorial Hospital Chloride [Moles/Vol]101 mmol/D23-140OufnmvkhkKettering Health Main CampusCO2 [Moles/Vol]35.2 mmol/LHigh21.0-32.0[facility] CampusCreatinine [Mass/Vol]1.24 mg/dLHigh0.55-1.02[facility] CampusGFR/1.73 sq M.predicted MDRD (S/P/Bld) [Vol rate/Area]51 mL/min/{1.73_m2}Low>=60 mL/min/1.73m 2FWilson Memorial HospitalGlucose [Mass/Vol]101 mg/bF88-500 [facility] CampusPotassium [Moles/Vol]3.6 mmol/L3.5-5.1FBrown Memorial Hospitalodium [Moles/Vol]143 mmol/Z354-719QihmzikitKettering Health Main CampusUrea nitrogen [Mass/Vol]34.0 mg/dLHigh7.0-18.0[facility] CampusUrea nitrogen/Creatinine [Mass ratio]27.4 mg/mgKettering Health Main CampusLaboratory - Hematology and Cell countsOrdered By: Elliot Starks on 94-03-3723Uydqvfpt granulocytes/100 WBC (Bld)0.3 %0.0-0.5FWilson Memorial HospitalLeukocytes [#/volume] corrected for nucleated erythrocytes in Blood by Automated counOrdered By: Elliot Starks on 36-65-0153VPG corrected for nucl RBC Auto (Bld) [#/Vol]7.9 10 3/uL4.0-11.0[facility] Lymphocytes Auto (Bld) [#/Vol]Ordered By: Elliot Starks on 18-84-4974Xqspvgzuosq (Bld) [#/Vol]2.5 10 3/uL1.2-3.8[facility] CampusLymphocytes/100 WBC Auto (Bld)Ordered By: Elliot Starks on 74-88-9199Liqknersacj/100 WBC (Bld) 32.2 %20.5-60.0[facility] CenterH Auto (RBC) [Entitic mass] Ordered By: Elliot Starks on 98-88-6275OFM (RBC) [Entitic mass]32.3 pg26.7-34.0 [facility] CampusMCHC Auto (RBC) [Mass/Vol]Ordered By: Elliot Starks on 30-88-7999SFSU (RBC) [Mass/Vol]33.3 g/dL29.9-35.2FWilson Memorial HospitalMCV Auto (RBC) [Entitic vol]Ordered By: Elliot Starks on 02-03-2025 MCV (RBC) [Entitic vol]96.8 fL81.0-99.0[facility] Monocytes Auto (Bld) [#/Vol]Ordered By: Elliot Starks on 70-38-7727Scfjhoubk (Bld) [#/Vol]0.8 10 3/uL0.3-0.8[facility] CampusMonocytes/100 WBC Auto (Bld)Ordered By: Elliot Starks on 98-28-0551Imvxvcagq/100 WBC (Bld)10.4 %1.7-12.0[facility] CampusNeutrophils Auto (Bld) [#/Vol]Ordered By: Elliot Starks on 76-98-8127Bjnhyqijbkf (Bld) [#/Vol]4.1 10 3/uL1.4-6.5 [facility] CampusNeutrophils/100 WBC Auto (Bld)Ordered By: Elliot Starks on 22-02-5318Wtaglmeosxw/100 WBC (Bld)52.1 %43.0-75.0[facility] CampusNo Panel InformationOrdered By: Elliot Starks on 23-46-4828Xcfubzrescd # (Auto)0.3 10 3/uL0.0-0.7FWilson Memorial HospitalImmature Granulocyte # (Auto)0.02 10 3/uL0.00-0.03[facility] CampusPlatelet mean volume Auto (Bld) [Entitic vol]Ordered By: Elliot Starks on 86-52-7864Gujiyfun mean volume (Bld) [Entitic vol]8.8 fLLow9.5-13.5 [facility] CampusPlatelets Auto (Bld) [#/Vol]Ordered By: Elliot Starks on 75-00-2695Tdwoebzhs (Bld) [#/Vol]286 10 3/xB938-150GpwsiydgmKettering Health Main CampusRBC Auto (Bld) [#/Vol]Ordered By: Elliot Starks on 68-46-7309UFW (Bld) [#/Vol]4.31 10 6/uL4.20-5.40Dunlap Memorial Hospitalerum or plasma anion gap determinationOrdered By: Elliot Starks on 11-58-6816Necyc gap [Moles/Vol]10.4 mmol/LFWilson Memorial HospitalBasophils Auto (Bld) [#/Vol]Ordered By: Ian Connell on 83-95-6074Oxyiwuuov (Bld) [#/Vol]0.1 10 3/uL 0.0-0.1FWilson Memorial HospitalBasophils/100 WBC Auto (Bld)Ordered By: Ian Connell on 54-78-3465Yhtfgwpxc/100 WBC (Bld)0.9 %0.2-2.0[facility] CampusEosinophils/100 WBC Auto (Bld)Ordered By: Ian Connell on 98-33-9758Uirrwmojakn/100 WBC (Bld)5.3 %0.9-7.0[facility] Erythrocyte distribution width Auto (RBC) [Ratio]Ordered By: Ian Connell on 85-68-8017Nnbmprzjmht distribution width (RBC) [Ratio]11.8 %11.0-15.0[facility] CampusGlobulin Calc (S) [Mass/Vol]Ordered By: Ian Connell on 54-94-3860Mjdaufgq (S) [Mass/Vol]4.3 g/dLKettering Health Main Campus Glomerular filtration rate (GFR) estimation in non- AmericanOrdered By: Ian Connell on 13-18-0162OXX/1.73 sq M.predicted among non-blacks MDRD (S/P/Bld) [Vol rate/Area]31 mL/min/{1.73_m2}Low>=60 mL/min/1.73m 2FWilson Memorial HospitalHematocrit Auto (Bld) [Volume fraction]Ordered By: Ian Connell on 94-14-2938Cklluxhhed (Bld) [Volume fraction]40.4 %36.0-48.0 [facility] CampusHemoglobin [Mass/volume] in BloodOrdered By: Ian Connell on 33-92-9640Erdiiykfyb (Bld) [Mass/Vol]13.7 g/dL12.0-16.0 [facility] CampusLaboratory - Chemistry and Chemistry - challengeOrdered By: Ian Connell on 10-68-8550Jhaqdcebe Ql (U)NegativeNEGATIVE [facility] CampusGlucose (U) [Mass/Vol]NegativeNEGATIVEKettering Health Main CampusKetones Ql (U)NegativeNEGATIVEKettering Health Main CampuspH (U)5.5 [pH]5.0-9.0Dunlap Memorial Hospitalpecific gravity (U) [Rel density]1.0201.005-1.025[facility] CampusUrobilinogen Qn (U)0.2 {Zenia'U}/dL0.2-1.0[facility] CampusAlbumin [Mass/Vol]3.6 g/dL3.4-5.0[facility] CampusALP [Catalytic activity/Vol]63 U/F76-917RzyfqczljKettering Health Main CampusALT [Catalytic activity/Vol]16 U/D73-98HmkxnjtlhKettering Health Main CampusAST [Catalytic activity/Vol]16 U/W45-72XrfagjefqKettering Health Main CampusBilirubin [Mass/Vol]0.7 mg/dL0.2-1.0[facility] CampusCalcium [Mass/Vol]9.7 mg/dL 8.5-10.1FWilson Memorial HospitalChloride [Moles/Vol]100 mmol/L98-107 [facility] CampusCO2 [Moles/Vol]28.3 mmol/L21.0-32.0[facility] CampusCreatinine [Mass/Vol]1.63 mg/dLHigh0.55-1.02[facility] CampusGFR/1.73 sq M.predicted MDRD (S/P/Bld) [Vol rate/Area]37 mL/min/{1.73_m2}Low>=60 mL/min/1.73m 2FWilson Memorial HospitalGlucose [Mass/Vol]154 mg/oVUthu13-667SbzzkobxnK[facility]tering Health Main CampusPotassium [Moles/Vol]3.2 mmol/LLow3.5-5.1FWilson Memorial HospitalProtein [Mass/Vol]7.9 g/dL6.4-8.2FBrown Memorial Hospitalodium [Moles/Vol]142 mmol/H147-922OuitboybeKettering Health Main CampusUrea nitrogen [Mass/Vol]28.0 mg/dL High7.0-18.0[facility] CampusUrea nitrogen/Creatinine [Mass ratio]17.2 mg/mgKettering Health Main CampusLaboratory - Hematology and Cell countsOrdered By: Ian Connell on 49-72-3330Sqmfkaea granulocytes/100 WBC (Bld)0.3 %0.0-0.5FWilson Memorial HospitalLaboratory - Specimen informationOrdered By: Ian Connell on 14-07-2844Sjjfefwued (U)CLEARCLEAR [facility] CampusColor (U)YELLOWYELLOWKettering Health Main CampusLaboratory - UrinalysisOrdered By: Ian Connell on 50-29-5219Wvfboltuu esterase Test strip Ql (U)NegativeNEGProMedica Bay Park HospitalMucus Ql (Urine sed)TRACEAbnormalNONE SEENKettering Health Main CampusNitrite Ql (U)NegativeNEGProMedica Bay Park HospitalProtein Ql (U)Negative NEG/TRACEKettering Health Main CampusLeukocytes [#/volume] corrected for nucleated erythrocytes in Blood by Automated counOrdered By: Ian Connell on 15-56-5248JHE corrected for nucl RBC Auto (Bld) [#/Vol]7.7 10 3/uL4.0-11.0 [facility] CampusLymphocytes Auto (Bld) [#/Vol]Ordered By: Ian Connell on 82-74-9595Nxbxkkhtoew (Bld) [#/Vol]2.9 10 3/uL1.2-3.8[facility] CampusLymphocytes/100 WBC Auto (Bld)Ordered By: Ian Connell on 86-73-6081Tmjizzszulv/100 WBC (Bld)38.2 %20.5-60.0[facility] Auto (RBC) [Entitic mass]Ordered By: Ian Connell on 26-27-8052WYQ (RBC) [Entitic mass]32.8 pg26.7-34.0[facility] CampusMCHC Auto (RBC) [Mass/Vol]Ordered By: Ian Connell on 43-41-5332IBDT (RBC) [Mass/Vol]33.9 g/dL29.9-35.2FWilson Memorial HospitalMCV Auto (RBC) [Entitic vol] Ordered By: Ian Connell on 32-85-9168MQT (RBC) [Entitic vol]96.7 fL81.0-99.0 [facility] CampusMonocytes Auto (Bld) [#/Vol]Ordered By: Ian Connell on 19-45-5049Vrjkatxey (Bld) [#/Vol]0.7 10 3/uL0.3-0.8[facility] CampusMonocytes/100 WBC Auto (Bld)Ordered By: Ian Connell on 55-64-7803Krhvcazan/100 WBC (Bld)9.5 %1.7-12.0[facility] Neutrophils Auto (Bld) [#/Vol]Ordered By: Ian Connell on 47-88-7439Hpnkwehwttj (Bld) [#/Vol]3.5 10 3/uL1.4-6.5FWilson Memorial HospitalNeutrophils/100 WBC Auto (Bld)Ordered By: Ian Connell on 27-23-3333Bttanzomzza/100 WBC (Bld) 45.8 %43.0-75.0[facility] CampusNo Panel InformationOrdered By: Ian Connell on 29-45-5070Zrvmz BacteriaTRACE #/HPFAbnormalNONE SEENKettering Health Main CampusUrine Occult BloodNegativeNEGATIVEKettering Health Main CampusUrine Other CastsNONE SEEN #/LPFNONE [facility] HospitalUrine Other CrystalsNone Seen #/HPFNone [facility]. [facility] HospitalUrine RBC2-5 #/HPFAbnormal0-2FWilson Memorial Hospital Urine Squamous Epithelial CellsFEW #/LPFAbnormalNONE/RAREKettering Health Main CampusUrine WBC2-5 #/HPFAbnormalNONE [facility] HospitalEosinophils # (Auto)0.4 10 3/uL0.0-0.7FWilson [facility] Hospital Immature Granulocyte # (Auto)0.02 10 3/uL0.00-0.03[facility] CampusTroponin I High Sensitivity9.8 pg/mL4.0-51.3FWilson Memorial HospitalComment on above:CUT-OFF POINTS HAVE BEEN ESTABLISHED BASED ON THE FOURTHUNIVERSAL DEFINITION OF MYOCARDIAL INFARCTION. THE UPPERREFERENCE LIMIT (URL) OF TROPONIN, DEFINED THE 99THPERCENTILE OF cTnI DISTRIBUTION IN A REFERENCE POPULATION,HAS BEEN CONFIRMED THE DECISION THRESHOLD FOR MIDIAGNOSIS.99TH PERCENTILE = 51.4 PG/MLNOTE: HIGH-SENSITIVITY TROPONIN ASSAY IS NOT INTENDED TO BEUSED IN ISOLATION BUT SHOULD BE INTERPRETED IN CONJUNCTIONWITH OTHER DIAGNOSTIC AND CLINICAL INFORMATION.Platelet mean volume Auto (Bld) [Entitic vol]Ordered By: Ian Connell on 85-73-6969Vyxpsknv mean volume (Bld) [Entitic vol]9.0 fLLow9.5-13.5FWilson Memorial Hospital Platelets Auto (Bld) [#/Vol]Ordered By: Ian Connell on 40-37-5409Ndnhrksfo (Bld) [#/Vol]273 10 3/aF638-759GdinjjqgzKettering Health Main CampusRBC Auto (Bld) [#/Vol]Ordered By: Ian Connell on 58-84-2952ZMR (Bld) [#/Vol]4.18 10 6/uLLow 4.20-5.40[facility]lap Memorial Hospitalerum or plasma albumin/globulin mass ratioOrdered By: Ian Connell on 61-44-8842Xhdzgqc/Globulin [Mass ratio]0.8 {ratio}[facility] Hospitalerum or plasma anion gap determination Ordered By: Ian Connell on 43-00-4709Vlqfu gap [Moles/Vol]16.9 mmol/LFWilson Memorial HospitalC Urineon 35-08-8366Rwrrzlwx identified Cx Nom (U) Microbiology PROCEDURE: Urine [...] Locations R1: This test was performed at: [facility], [address] [place] [address], [address]- , , EvtiklMinnjaCorey HospitalComment on above:Performed By: #### [id number] #### [facility] [address] [place] [address]Ixmlusiivm Visit Summaryon 00-10-3608Khlqbocxik Visit Summary Ambulatory Visit Summary BETTIE BURNS [...] 40 mg Cap-DR) potassium chloride (Potassium Chloride (Sqx-Bauf-Zck 10) 10 mEq oral tablet, extended release) [...] E Osman PA-C Where: [facility] [address] [address]- Medications What How Much When Why Instructions [...] 1 Capsules Unchanged potassium chloride (Potassium Chloride (Mqv-Vdkf-Igx 10) 10 mEq oral tablet, extended release) [...] signed up for this yet, please contact [employer] at [phone] to get signed up today. Language Information Language assistance services are available as needed. Corey HospitalUrology Office/Clinic Noteon 47-44-6453Wlhvvkt Office/Clinic NoteUrology Office/Clinic Note Chief Complaint F/U with PVR [...] using 1 pad/day, not leaking much. She wastaking Trospium 20 mg BID at this visit, [...] Urnls Dip Stick Auto w/o Microscopy POC 26103 2. Frequent UTI, (N39.0: Urinary tract infection, [...] Refill(s) 2, Apply pea sized amount to urethra/tiqwih5g a week for 1 month, then 2x a week afterwards, [facility]/pharmacy #[id number], 165, cm, 06/22/24 13:05:00 EST, Height/Length Dosing, 80.7, kg, 06/22/24 13:05:00 EST, Weight Dosing estradiol topical, See Instructions, 42.5 gm, Refill(s) 2, Apply pea sized amount to urethra/oljmmy3m a week for 1 month, then 2x a week afterwards, [facility]/pharmacy #[id number], 165, cm, 01/25/25 8:16:00 EDT, Height/Length Dosing, 81.4, kg, 10/26/24 8:10:00 EDT, Weight Dosing nitrofurantoin, 100 mg = 1 cap(s), Oral, BID, X 7 day(s), # 14 cap(s), Refills(s) 0, Pharmacy: [facility]pharmacy #[id number], 165, cm, 01/25/25 8:16:00 EDT, Height/Length Dosing, 81.4, kg, 10/26/24 8:10:00 EDT,Weight Dosing Urine Culture Urnls Dip Stick Auto w/o Microscopy POC 87435 3. History of kidney stones (Z87.442: Personal history of urinary calculi) (more content not included)...Corey HospitalComment on above: Result Comment: Electronically Signed By: Jacqui MOTT, Maria E\.br\Date and Time Signed: 01/25/25 11:51 EDTGlomerular filtration rate (GFR) estimation in non- AmericanOrdered By: Elliot Starks on 85-05-1417VVI/1.73 sq M.predicted among non-blacks MDRD (S/P/Bld) [Vol rate/Area]56 mL/min/{1.73_m2}Low>=60 mL/min/1.[address]m [address] [place], [place] [address]Laboratory - Chemistry and Chemistry - challengeOrdered By: Elliot Starks on 73-49-4638Hcjmuni [Mass/Vol]9.6 mg/dL8.5-10.1FWilson Memorial HospitalChloride [Moles/Vol]105 mmol/L 98-107[facility] CampusCO2 [Moles/Vol]32.8 mmol/LHigh21.0-32.0 [facility] CampusCreatinine [Mass/Vol]0.96 mg/dL0.55-1.02 [facility] CampusGFR/1.73 sq M.predicted MDRD (S/P/Bld) [Vol rate/Area]mL/min/{1.73_m2}>=60 mL/min/1.73m [address] [place] [address] Glucose [Mass/Vol]93 mg/kZ81-725YehzcgqfgKettering Health Main CampusPotassium [Moles/Vol]4.3 mmol/L3.5-5.1FBrown Memorial Hospitalodium [Moles/Vol] 143 mmol/C689-630IzrhfauggKettering Health Main CampusUrea nitrogen [Mass/Vol]25.0 mg/dLHigh7.0-18.0[facility] CampusUrea nitrogen/Creatinine [Mass ratio]26.0 mg/mgKettering Health Main CampusBilirubin Ql (U)Negative [facility] CampusGlucose (U) [Mass/Vol]NegativeKettering Health Main CampusKetones Ql (U)NegativeKettering Health Main CampuspH (U)7.5 [pH][facility]lap Memorial Hospitalpecific gravity (U) [Rel density] 1.000[facility] CampusUrobilinogen (U) [Mass/Vol]0.2 mg/dL [facility] CampusLaboratory - Specimen informationOrdered By: Elliot Starks on 37-70-5442Zdlpmrkqyy (U)clearKettering Health Main Campus Color (U)yellowKettering Health Main CampusLaboratory - UrinalysisOrdered By: Elliot Starks on 12-97-5424Jhyjdjkfu esterase Test strip Ql (U)Negative [facility] CampusNitrite Ql (U)NegativeKettering Health Main CampusProtein Ql (U)NegativeKettering Health Main CampusNo Panel InformationOrdered By: Elliot Starks on 14-39-6370Kfvme Occult BloodNegative [facility] Memorial Hospitalerum or plasma anion gap determinationOrdered By: Elliot Starks on 63-42-6787Syzyw gap [Moles/Vol]9.5 mmol/LFWilson Memorial HospitalNo Panel Informationon 46-66-3551DGTP HealthcareBacteria Ur Culton 97-18-4993Zyofenmj identified Cx Nom (U)CULTURE, URINE: Mixed microbiota, including predominantly: ORGANISM ID: 1 >=100,000 CFU/ml Escherichia coli ORGANISM ID: 1 (ESCHERICHIA COLI) ANTIBIOTIC INTERPRETATION AUBREY STATUS REFERENCE RANGE Ampicillin R >=32 F Susceptible <=8 , Intermediate >8 , Resistant >16 Cefazolin S <=4 F Susceptible 0-16 , Intermediate <0 or >16 , Resistant >16 For uncomplicated urinary tract infections, cefazolin results can be used to predict susceptibilityor resistance to cephalexin. Ceftriaxone S <=1 F [...] Susceptible <=32 , Intermediate >32 , Resistant >64[facility] HospitalComment on above:Performed By: #### 42426-6 #### [facility] CLIA [id number] [address] [place] [address] [facility] #### 630-4 #### [facility] CLIA [id number] [address] [address] [facility]OSPITALED NOTEon 69-48-2467YU NOTE HNO ID: [id number] Author: ADAM PORTILLO RN Service: ? Author Type: Registered Nurse Type: ED Notes Filed: 12/19/2024 01:18 Note Text: Patient discharged per MD orders. Discharge instructions reviewed. Pt encouraged to return to ED if worsening signs or symptoms occur. Prescriptions called into pharmacy of choice. Follow up care discussed. Pt left ED in stable condition.NormalAvon HospitalHIGH SENSITIVITY TROPONIN T (THIRD) 3 HRS AFTER INITIALon 00-14-3334Hsrpcrks T.cardiac High sensitivity method [Mass/Vol]13 ng/L High<12Avon HospitalComment on above:Order Comment: Specimen Type: BLOOD SPECIMENOrdering Facility: [facility] Address:[address] [place], [place] [address]Performed By: #### 71769-2 #### [facility] CLIA [id number] [place] #### 630-4 #### [facility] CLIA [id number] 95[address] [facility] DESK [address] OF [facility]abor[facility] - Chemistry and Chemistry - challengeOrdered By: Tyshawn Snow on 95-69-2659Ayqoqanoa Ql (U) NegativeNegativeKettering Health Main CampusGlucose (U) [Mass/Vol]Negative Trace, NegativeKettering Health Main CampusKetones Ql (U)NegativeNegative, TraceKettering Health Main CampuspH (U)6.0 [pH]5.0-8.0Dunlap [facility] Hospitalpecific gravity (U) [Rel density]1.0281.005-1.030[facility] CampusLaboratory - Specimen informationOrdered By: Tyshawn Snow on 33-81-9624Avjtstksfr (U)TurbidAbnormalClearFWilson Memorial HospitalColor (U)Light YellowyellowKettering Health Main Campus Laboratory - UrinalysisOrdered By: Tyshawn Snow on 29-36-6657Knnhinv casts LM Ql (Urine sed)1-3 /LPFAbnormal0 /LPFFWilson Memorial HospitalLeukocyte esterase Test strip Ql (U)500 Felipe/uLAbnormalNegative, 25 Felipe/uLKettering Health Main CampusNitrite Ql (U)2+AbnormalNegativeKettering Health Main CampusProtein Ql (U)NegativeTrace, NegativeKettering Health Main CampusNo Panel InformationOrdered By: Tyshawn Snow on 77-53-9861Pzwazmtp T Hi Sens Cardiac Wdcgujyn24 ng/LHigh<12[facility] Main CampusUrine BacteriaRare [HPF]AbnormalNone SeenKettering Health Main CampusUrine Occult BloodTraceNegative, TraceKettering Health Main CampusUrine RBC6-10 /HPF Abnormal0-3 /HPFKettering Health Main CampusUrine Squamous Epithelial Cells Few [HPF][facility] CampusUrine UrobilinogenNormalNormal [facility] CampusUrine WBC>25 /HPFAbnormal0-5 /HPFKettering Health Main CampusUrinalysis complete panel (U)on 14-52-2408Enrsmtuz LM.HPF (Urine sed) [#/Area]RareAbnormalPhoenix Indian Medical Centere SeenSan Antonio HospitalComment on above:Order Comment: Specimen Type: URINE SPECIMEN [facility] Address: [address] [place], [place] [address]Performed By: #### 64696-9 #### [facility] CLIA [id number] [address] [place] [address] [place] #### 630-4 #### [facility] CLIA [id number] [address] [place] [address] [place] AMERICABilirubin Ql (U)Negative NormalNegativeAvon HospitalComment on above:Order Comment: Specimen Type: URINE SPECIMEN [facility] Address: [address] [place], [place] [address]Performed By: #### 69541-3 #### [facility] CLIA [id number] [address] [place] [address] [place] #### 630-4 #### [facility] CLIA [id number] [address] [place] [address] [place] AMERICAClarity (Unsp spec)Turbid AbnormalClearAvon HospitalComment on above:Order Comment: Specimen Type: URINE SPECIMEN [facility] Address: [address] [place], [place] [address]Performed By: #### 25026-1 #### [facility] CLIA [id number] [address] [place] [address] [place] #### 630-4 #### [facility] CLIA [id number] [address] [place] [address] [place] AMERICAColor (U)Light YellowNormal yellowAvon HospitalComment on above:Order Comment: Specimen Type: URINE SPECIMEN [facility] Address: [address] [place], [place] [address]Performed By: #### 61657-2 #### [facility] [place] [id number] [address] [place] [address] [place] #### 630-4 #### [facility] CLIA [id number] [address] [place] [address] [place] AMERICAEpithelial cells LM.HPF (Urine sed) [#/Area]FewNormalAvon HospitalComment on above:Order Comment: Specimen Type: URINE SPECIMEN [facility] Address: [address] [place], [place] [address]Performed By: #### 30557-4 #### [facility] [place] [id number] [address] [place] [address] [place] #### 630-4 #### [facility] CLIA [id number] [address] [place] [address] [place] AMERICAGlucose Test strip (U) [Mass/Vol]NegativeNormalTrace, NegativeAvon HospitalComment on above:Order Comment: Specimen Type: URINE SPECIMEN [facility] Address: [address] [place], [place] [address]Performed By: #### 19301-7 #### [facility] CLIA [id number] [address] [place] [address] [place] #### 630-4 #### [facility] CLIA [id number] [address] [place] [address] [place] AMERICAHemoglobin Ql (U)TraceNormal Negative, TraceAvon HospitalComment on above:Order Comment: Specimen Type: URINE SPECIMEN [facility] Address: [address] [place], [place] [address]Performed By: #### 29910-0 #### [facility] CLIA [id number] [address] [place] [address] [place] #### 630-4 #### [facility] CLIA [id number] [address] [place] [address] [place] AMERICAHyaline casts (Urine sed) [#/Area]1-3 /LPFAbnormal0 /LPFAvon HospitalComment on above:Order Comment: Specimen Type: URINE SPECIMEN [facility] Address: [address] [place], [place] [address]Performed By: #### 11130-5 #### [facility] CLIA [id number] [address] [place] [address] [place] #### 630-4 #### [facility] CLIA [id number] [address] [place] [address] [place] AMERICAKetones Ql (U)NegativeNormal Negative, TraceAvon HospitalComment on above:Order Comment: Specimen Type: URINE SPECIMEN [facility] Address: [address] [place], [place] [address]Performed By: #### 69109-1 #### [facility] CLIA [id number] [address] [place] [address] [place] #### 630-4 #### [facility] CLIA [id number] [address] [place] [address] [place] AMERICALeukocyte esterase Test strip Ql (U)500 Felipe/uLAbnormalNegative, 25 Felipe/uLAvon HospitalComment on above: Order Comment: Specimen Type: URINE SPECIMEN [facility] Address: [address] [place], [place] [address]Performed By: #### 69929-5 #### [facility] [place] [id number] [address] [place] [address] [place] #### 630-4 #### [facility] CLIA [id number] [address] [place] [address] [place] AMERICANitrite Ql (U)2+Abnormal NegativeAvon HospitalComment on above:Order Comment: Specimen Type: URINE SPECIMEN [facility] Address: [address] [place], [place] [address]Performed By: #### 69247-1 #### [facility] [place] [id number] [address] [place] [address] [place] #### 630-4 #### [facility] CLIA [id number] [address] [place] [address] [place] AMERICApH (U)6.0 [pH]Normal5.0-8.0 Helena HospitalComment on above:Order Comment: Specimen Type: URINE SPECIMEN [facility] Address: [address] [place], [place] [address]Performed By: #### 68326-9 #### [facility] [place] [id number] [address] [place] [address] [place] #### 630-4 #### [facility] CLIA [id number] [address] [place] [address] [place] AMERICAProtein (U) [Mass/Vol] NegativeNormalTrace, NegativeAvon HospitalComment on above:Order Comment: Specimen Type: URINE SPECIMEN [facility] Address: [address] [place], [place] [address]Performed By: #### 01243-2 #### [facility] [place] [id number] [address] [place] [address] [place] #### 630-4 #### [facility] CLIA [id number] [address] [place] [address] [place] [facility]ICAL CENTERRBC LM.HPF (Urine sed) [#/Area]6-10 /HPFAbnormal0-3 /HPFAvon HospitalComment on above:Order Comment: Specimen Type: URINE SPECIMEN [facility] Address: [address] [place], [place] [address]Performed By: #### 37397-4 #### [facility] [place] [id number] [address] [place] [address] [place] #### 630-4 #### [facility] CLIA [id number] [address] [place] [address] [place] AMERICASpecific gravity (U) [Rel density]1.016Gtqlnm3.005-1.030Av HospitalComment on above:Order Comment: Specimen Type: URINE SPECIMEN [facility] Address: [address] [place], [place] [address]Performed By: #### 72151-3 #### [facility] [place] [id number] [address] [place] [address] [place] #### 630-4 #### [facility] CLIA [id number] [address] [place] [address] [place] AMERICAUrobilinogen Ql (U)Normal NormalNormalAvon HospitalComment on above:Order Comment: Specimen Type: URINE SPECIMEN [facility] Address: [address] [place], [place] [address]Performed By: #### 06907-4 #### [facility] [place] [id number] [address] [place] [address] [place] #### 630-4 #### [facility] CLIA [id number] [address] STREETWBC LM.HPF (Urine sed) [#/Area]/[HPF]Abnormal0-5 /HPFAvon HospitalComment on above:Order Comment: Specimen Type: URINE SPECIMEN [facility] Address: [address] [place], [place] [address]Performed By: #### 65026-8 #### [facility] CLIA [id number] [address] [place] [address] [place] #### 630-4 #### [facility] CLIA [id number] [address] [place] [address] 12-18-2024 ALLIED HEALTHHNO ID: [id number] Author: VAN WAHL Tech Service: Radiology Author Type: Anesthesiology Faculty Type: Allied Health Filed: 12/18/2024 22:22 Note [...] PATIENT PRESENTS WITH AN IMPLANTABLE OR ATTACHED BLADE GRINDER: No RADIOLOGY DEPARTMENT: CT; Exam(s) Completed: Brain and PE Study PERIPHERAL IV DATA: Inpatient: see LDA documentation SIGNED BY: Cherrie Martin December 18, 2024 9:44 PMNormalAvLutheran Hospital of IndianaBasophils Auto (Bld) [#/Vol]Ordered By: Tyshawn Snow on 63-67-0279Ftacvufiq (Bld) [#/Vol]0.09 10*3/uL<0.11[facility] Main CampusBasophils/100 WBC Auto (Bld)Ordered By: Tyshawn Snow on 99-53-3048Bwgbvaxqe/100 WBC (Bld)1.2 %[facility] CampusBlood manual differential comment interpretation narrativeOrdered By: Tyshawn Snow on 72-76-3416Oexssx differential comment Murtaza (Bld) [Interp][facility] HospitalCB W Auto Differential panel (Bld)on 67-77-0139Lgpeneibn (Bld) [#/Vol]0.09 10*3/uLNormal<0.11Avon HospitalComment on above:Order Comment: Specimen Type: BLOOD SPECIMEN [facility] Address: [address] [place], [place] [address]Performed By: #### 11946-4 #### [facility] [place] [id number] [address] [place] [address] [place] AMERICABasophils/100 WBC (Bld)1.2 %NormalAvon HospitalComment on above:Order Comment: Specimen Type: BLOOD SPECIMEN [facility] Address: [address] [place], [place] [address]Performed By: #### 68711-3 #### [facility] [place] [id number] [address] [place] [address] [place] AMERICADifferential cell count method Nom (Bld) AutoNormalAvon HospitalComment on above:Order Comment: Specimen Type: BLOOD SPECIMEN [facility] Address: [address] [place], [place] [address]Performed By: #### 68586-4 #### [facility] [place] [id number] [address] [place] [address] [place] AMERICAEosinophils (Bld) [#/Vol]0.34 10*3/uL Normal<0.46Avon HospitalComment on above:Order Comment: Specimen Type: BLOOD SPECIMEN [facility] Address: [address] [place], [place] [address]Performed By: #### 64854-1 #### [facility] [place] [id number] [address] [place] [address] [place] AMERICAEosinophils/100 WBC (Bld)4.6 %NormalAv HospitalComment on above:Order Comment: Specimen Type: BLOOD SPECIMEN [facility] Address: [address] [place], [place] [address]Performed By: #### 95375-8 #### [facility] [place] [id number] [address] [place] [address] [place] AMERICAErythrocyte distribution width (RBC) [Ratio]11.9 %Rhcetd66.5-15.0Av HospitalComment on above:Order Comment: Specimen Type: BLOOD SPECIMEN [facility] Address: [address] [place], [place] [address]Performed By: #### 69934-3 #### [facility] [place] [id number] [address] [place] [address] [place] AMERICAHematocrit (Bld) [Volume fraction]36.9 % Mowkmq57.0-46.0Av HospitalComment on above:Order Comment: Specimen Type: BLOOD SPECIMEN [facility] Address: [address] [place], [place] [address]Performed By: #### 92266-7 #### [facility] [place] [id number] [place] [address] [place] AMERICAHemoglobin (Bld) [Mass/Vol]12.3 g/dL Daaonf16.5-15.5Avo HospitalComment on above:Order Comment: Specimen Type: BLOOD SPECIMEN [facility] Address: [address] [place], [place] [address]Performed By: #### 49976-4 #### [facility] [place] [id number] [address] [place] [address] [place] AMERICAImmature granulocytes (Bld) [#/Vol] 10*3/uLNormal<0.10Avon HospitalComment on above:Order Comment: Specimen Type: BLOOD SPECIMEN [facility] Address: [address] [place], [place] [address]Performed By: #### 63494-5 #### [facility] [place] [id number] [address] [place] [address] [place] AMERICAImmature granulocytes/100 WBC (Bld)0.1 % NormalAv HospitalComment on above:Order Comment: Specimen Type: BLOOD SPECIMEN [facility] Address: [address] [place], [place] [address]Performed By: #### 70321-8 #### [facility] [place] [id number] [address] [place] [address] [place] AMERICALymphocytes (Bld) [#/Vol]3.86 10*3/uL Normal1.00-4.00Av HospitalComment on above:Order Comment: Specimen Type: BLOOD SPECIMEN [facility] Address: [address] [place], [place] [address]Performed By: #### 05299-0 #### [facility] [place] [id number] [place] [address] [place] AMERICALymphocytes/100 WBC (Bld)51.7 %NormalAv HospitalComment on above:Order Comment: Specimen Type: BLOOD SPECIMEN [facility] Address: [address] [place], [place] [address]Performed By: #### 39719-5 #### [facility] [place] [id number] [address] [place] [address] [facility] (RBC) [Entitic mass]32.5 pgNormal 26.0-34.0Av HospitalComment on above:Order Comment: Specimen Type: BLOOD SPECIMEN [facility] Address: [address] [place], [place] [address]Performed By: #### 87451-6 #### [facility] IA [id number] [address] [place] [address] [facility] (RBC) [Mass/Vol]33.3 g/dLNormal 30.5-36.0Av HospitalComment on above:Order Comment: Specimen Type: BLOOD SPECIMEN [facility] Address: [address] [place], [place] [address]Performed By: #### 55043-5 #### [facility] [place] [id number] [address] [place] [address] [place] AMERICAMCV (RBC) [Entitic vol]97.4 fLNormal 80.0-100.0Av HospitalComment on above:Order Comment: Specimen Type: BLOOD SPECIMEN [facility] Address: [address] [place], [place] [address]Performed By: #### 47870-7 #### [facility] [place] [id number] [address] [place] [address] [place] AMERICAMonocytes (Bld) [#/Vol]0.70 10*3/uLNormal <0.87Av HospitalComment on above:Order Comment: Specimen Type: BLOOD SPECIMEN [facility] Address: [address] [place], [place] [address]Performed By: #### 21355-4 #### [facility] [place] [id number] [address] [place] [address] [place] AMERICAMonocytes/100 WBC (Bld)9.4 %NormalAv HospitalComment on above:Order Comment: Specimen Type: BLOOD SPECIMEN [facility] Address: [address] [place], [place] [address]Performed By: #### 14963-3 #### [facility] [place] [id number] [address] [place] [address] [place] AMERICANeutrophils (Bld) [#/Vol]2.47 10*3/uL Normal1.45-7.50Av HospitalComment on above:Order Comment: Specimen Type: BLOOD SPECIMEN [facility] Address: [address] [place], [place] [address]Performed By: #### 95048-9 #### [facility] [place] [id number] [address] [place] [address] [place] AMERICANeutrophils/100 WBC (Bld)33.0 %NormalAvon HospitalComment on above:Order Comment: Specimen Type: BLOOD SPECIMEN [facility] Address: [address] [place], [place] [address]Performed By: #### 71154-3 #### [facility] [place] [id number] [address] [place] [address] [place] AMERICANucleated RBC (Bld) [#/Vol]10*3/uLNormal <0.01Avon HospitalComment on above:Order Comment: Specimen Type: BLOOD SPECIMEN [facility] Address: [address] [place], [place] [address]Performed By: #### 92649-7 #### [facility] [place] [id number] [address] [place] [address] [place] AMERICANucleated RBC/100 WBC (Bld) [Ratio]0.0 /100 WBCNormalAvon HospitalComment on above:Order Comment: Specimen Type: BLOOD SPECIMEN [facility] Address: [address] [place], [place] [address]Performed By: #### 81262-5 #### [facility] [place] [id number] [address] [place] [address] [place] OF AMERICAPlatelet mean volume (Bld) [Entitic vol] 8.7 fLLow9.0-12.7Avon HospitalComment on above:Order Comment: Specimen Type: BLOOD SPECIMEN Ordering Facility: [facility] Address: [address] [place], [place] [address]Performed By: #### 77668-1 #### [facility] [place] [id number] [address] [place] [address] [place] AMERICAPlatelets (Bld) [#/Vol]209 10*3/uLNormal 150-400Avon HospitalComment on above:Order Comment: Specimen Type: BLOOD SPECIMEN Ordering Facility: [facility] Address: [address] [place], [place] [address]Performed By: #### 32918-2 #### [facility] CLIA [id number] [facility] [place] [address] UNITED [facility] COUNTY COMMUNITY HOSPITALRBC (Bld) [#/Vol]3.79 10*6/uLLow3.90-5.20 [facility] HospitalComment on above:Order Comment: Specimen Type: BLOOD SPECIMEN Ordering Facility: [facility] Address: [address] [place], [place] [address]Performed By: #### 61392-8 #### [facility] [place] [id number] [address] [place], [place] [address] [place], [place] [address]WBC (Bld) [#/Vol]7.47 10*3/uLNormal 3.70-11.00San Antonio HospitalComment on above:Order Comment: Specimen Type: BLOOD SPECIMEN Ordering Facility: [facility] Address: [address] [place], [place] [address]Performed By: #### 60718-2 #### [facility] IA [id number] SerPl-cCncon 26-04-8374FA [Catalytic activity/Vol]37 U/MQle99-466Vkmy HospitalComment on above:Order Comment: Specimen Type: BLOOD SPECIMEN Ordering Facility: [facility] Address: [address] [place], [place] [address]Performed By: #### 2157-6, 06292-9, 3040-3, 85585-3 #### [facility] IA [id number] [address] [address] BRAIN WO IVCONon 17-21-5853VX BRAIN WO IVCON* * *Final Report* * * DATE OF EXAM: Dec 18 2024 10:24PM [facility] 0504 - CT BRAIN WO [...] Other: No depressed skull fracture is seen. Transportation Dispatcher (topogram) images: Degenerative spine changes noted. Non-diagnostic otherwise. IMPRESSION: Brain CT shows no evidence of an acute intracranial abnormality. Chronic intracranial changes and other details above. Civil Service Worker: [facility] Transcribe Date/Time: Dec 18 2024 11:53P Dictated by : LOVE VALENCIA MD This examination was interpreted and the report reviewed and electronically signed by: LOVE VALENCIA MD on Dec 19 2024 12:12AM EST [id number]_IDCSIACNNormalon HospitalCTA CHEST (NON GATED) W IVCON PEon 90-56-8854FLB CHEST (NON GATED) W IVCON PE* * *Final Report* * * DATE OF EXAM: Dec 18 2024 10:27PM [facility] 0564 - CTA CHEST (NON [...] process. 3. Calcified granulomas and lymph nodes. Civil Service Worker: PSCB Transcribe Date/Time: Dec 19 2024 12:32A Dictated by : JASON HINKLE MD This examination was interpreted and the report reviewed and electronically signed by: JASON HINKLE MD on Dec 19 2024 12:45AM EST [id number]_IDCSIACMurray-Calloway County HospitalComprehensive metabolic 2000 panelon 33-61-5198Rqjwvjd [Mass/Vol]3.7 g/dLLow3.9-4.9Avon HospitalComment on above: Order Comment: Specimen Type: BLOOD SPECIMEN Ordering Facility: [facility] Address: [address] [place], [place] [address]Performed By: #### 2157-6, 09873-5, 3040-3, 48528-8 #### [facility] CLIA [id number] [address] [place] [address] [place] AMERICAALP [Catalytic activity/Vol]55 U/LNormal 34-123Av HospitalComment on above:Order Comment: Specimen Type: BLOOD SPECIMEN Ordering Facility: [facility] Address: [address] [place], [place] [address]Performed By: #### 2157-6, 40734-8, 3040-3, 57520-2 #### [facility] IA [id number] [address] [place] [address] [place] AMERICAALT [Catalytic activity/Vol]9 U/LNormal 7-38Av HospitalComment on above:Order Comment: Specimen Type: BLOOD SPECIMEN Ordering Facility: [facility] Address: [address] [place], [place] [address]Performed By: #### 2157-6, 70768-2, 3040-3, 14323-3 #### [facility] IA [id number] [address] [place] [address] [place] AMERICAAnion gap [Moles/Vol]15 mmol/LNormal8-15 [facility] [place] HospitalComment on above:Order Comment: Specimen Type: BLOOD SPECIMEN Ordering Facility: [facility] Address: [address] [place] [address]Hjqwgvmjh By: #### 2157-6, 93277-0, 3040-3, 91401-5 #### [facility] CLIA [id number] [address] [place] [address] [place] AMERICAAST [Catalytic activity/Vol]16 U/LNormal 13-35Av HospitalComment on above:Order Comment: Specimen Type: BLOOD SPECIMEN Ordering Facility: [facility] Address: [address] [place], [place] [address]Performed By: #### 2157-6, 45054-0, 3040-3, 86474-8 #### [facility] CLIA [id number] [address] [place] [address] [place] AMERICABilirubin [Mass/Vol]0.2 mg/dLNormal 0.2-1.3Avo HospitalComment on above:Order Comment: Specimen Type: BLOOD SPECIMEN Ordering Facility: [facility] Address: [address] [place], [place] [address]Performed By: #### 2157-6, 52594-4, 3040-3, 13520-3 #### [facility] CLIA [id number] [address] [place] [address] [place] AMERICACalcium [Mass/Vol]9.4 mg/dLNormal8.5-10.2 [facility] [place] HospitalComment on above:Order Comment: Specimen Type: BLOOD SPECIMEN Ordering Facility: [facility] Address: [address] [place], [place] [address]Performed By: #### 2157-6, 14456-7, 3040-3, 05702-2 #### [facility] CLIA [id number] [address] [place] [address] [place] AMERICAChloride [Moles/Vol]99 mmol/AKmdaqw38-388 [facility] HospitalComment on above:Order Comment: Specimen Type: BLOOD SPECIMEN Ordering Facility: [facility] Address: [address] [place], [place] [address]Performed By: #### 2157-6, 84359-7, 3040-3, 47926-5 #### [facility] CLIA [id number] [address] [place] [address] [place] AMERICACO2 [Moles/Vol]24 mmol/BYjazvt19-80Jtci HospitalComment on above:Order Comment: Specimen Type: BLOOD SPECIMEN Ordering Facility: [facility] Address: [address] [place], [place] [address]Performed By: #### 2157-6, 07676-7, 3040-3, 18380-5 #### [facility] CLIA [id number] [address] [place] [address] [place] AMERICACreatinine [Mass/Vol]1.24 mg/dLHigh 0.58-0.96Av HospitalComment on above:Order Comment: Specimen Type: BLOOD SPECIMEN Ordering Facility: [facility] Address: [address] [place], [place] [address]Performed By: #### 2157-6, 28612-1, 3040-3, 47514-2 #### [facility] CLIA [id number] [address] [place] [address] [place] AMERICAeGFRcr SerPlBld CKD-EPI 309314 mL/min/1.73m???Low>=60Av HospitalComment on above:Order Comment: Specimen Type: BLOOD SPECIMEN Ordering Facility: [facility] Address: [address] [place], [place] [address]Result Comment: Estimated Glomerular Filtration Rate (eGFR) is calculated using the 2020 CKD-EPI cre atinine equation. This equation utilizes serum creatinine, sex, and age as parameters. The creatinine assay has traceable calibration to isotope dilution- mass spectrometry. Refer to KDIGO guidelines for clinical interpretation. In patients with unstable renal function, e.g. those with acute kidney injury, the eGFR may not accurately reflect actual GFR.Performed By: #### 2157-6, 42722-9, 3040-3, 73251-7 #### [facility] CLIA [id number] [address] [place] [address] [place] AMERICAGlucose [Mass/Vol]153 mg/zKJfpj89-55Wtwf HospitalComment on above:Order Comment: Specimen Type: BLOOD SPECIMEN Ordering Facility: [facility] Address: [address] [place] [address]Xchpul Comment: The [place] Diabetes Association (ADA) provides guidance for cutoff [...] Standards of Medical Care in Diabetes 2016, [place] Diabetes Association. Diabetes Care. 2016.39(Suppl 1).Performed By: #### 2157-6, 70695-4, 3040-3, 85546-4 #### [facility] CLIA [id number] [address] [place] [address] [place] AMERICAPotassium [Moles/Vol]3.1 mmol/LLow3.7-5.1 [facility] HospitalComment on above:Order Comment: Specimen Type: BLOOD SPECIMEN Ordering Facility: [facility] Address: [address] [place], [place] [address]Performed By: #### 2157-6, 23499-1, 0-3, 08454-6 #### [facility] CLIA [id number] [address] [place] [address] [place] AMERICAProtein [Mass/Vol]6.4 g/dLNormal6.3-8.0 [facility] HospitalComment on above:Order Comment: Specimen Type: BLOOD SPECIMEN Ordering Facility: [facility] Address: [address] [place], [place] [address]Performed By: #### 2157-6, 27899-7, 0-3, 23217-8 #### [facility] CLIA [id number] [address] [place] [address] [place] AMERICASodium [Moles/Vol]138 mmol/KYbeseb091-892 [facility] HospitalComment on above:Order Comment: Specimen Type: BLOOD SPECIMEN Ordering Facility: [facility] Address: [address] [place], [place] [address]Performed By: #### 2157-6, 77146-6, 3040-3, 92655-6 #### [facility] CLIA [id number] [address] [place] [address] [place] AMERICAUrea nitrogen [Mass/Vol]22 mg/dLHigh7-21 [facility] HospitalComment on above:Order Comment: Specimen Type: BLOOD SPECIMEN Ordering Facility: [facility] Address: [address], [place], [place] [address]Gctrnzqjo By: #### 2157-6, 27328-4, 3040-3, 45951-6 #### [facility] CLIA [id number] [facility] [place] [address] [place] OF AMERICAED NOTEon 59-62-0186PS NOTEHNO ID: [id number] Author: ISHMAEL GARCIA, RICARDO Service: ? Author Type: Registered Nurse Type: ED Notes Filed: 12/18/2024 20:17 Note Text: Bed: ED-12 Expected date: Expected time: Means of arrival: Comments:NormalAvon HospitalED PROV NOTEon 24-38-7097YF PROV NOTEHNO ID: [id number] Author: TYSHAWN SNOW DO Service: ? Author Type: Physician [...] course and clinically improved and feeling better Tyshawn Snow DO Disposition The patient was discharged. Yes Escalation of care including transfer to ED considered. Reason(s) for deciding against admission/observation: Offered and after shared decision making we will go home and pursue outpatient follow-up Counse (more content not included)...[facility] 12-18-2024 ElectrocardiogramVentricular Rate : 53 BPM Atrial Rate : 53 BPM P-R Interval : 255 ms QRS Duration : 125 ms Q-T Interval : 458 ms QTC Calculation(Bazett) : 430 ms Calculated P [place] : 231 degrees Calculated R [place] : -23 degrees Calculated T [place] : 117 degrees Sinus or ectopic atrial rhythm Prolonged RI intervalAbnormal ECG Confirmed by TYSHAWN SNOW DO ([id number]) on 12/19/2024 1:04:30 AM NAME : BETTIE BURNS PID : [id number] : 1945 Gender : Female Race : ORD : Procedure Date : Dec 18 2024 20:27:32 Edit Date : Dec 19 2024 01:04:35 Diagnosis: Sinus or ectopic atrial rhythm Prolonged RI intervalAbnormal ECG Confirmed by TYSHAWN SNOW DO ([id number]) on 12/19/2024 1:04:30 AM Test Reason : Location : 302 : ED AVED-12 Overread By : TYSHAWN SNOW DO Edited By : TYSHAWN SNOW DO Referred By : , Acquired by : ,[facility]angeEosinophils/100 WBC Auto (Bld)Ordered By: Tyshawn Snow on 17-86-4040Wwpixauzgda/100 WBC (Bld)4.6 %[facility] CampusErythrocyte distribution width Auto (RBC) [Ratio]Ordered By: Tyshawn Snow on 38-67-7155Tztkqfaqkkz distribution width (RBC) [Ratio]11.9 %11.5-15.0 [facility] CampusEthanol SerPl-mCncon 09-60-7964Jaybmua [Mass/Vol]105 mg/dLHigh<11Avon HospitalComment on above:Order Comment: Specimen Type: BLOOD SPECIMEN [facility] Facility: [facility] Address: [address] [place], [place] [address]Result Comment: Values > 80 mg/dL may indicate intoxicationPerformed By: #### 5643-2 #### [facility] CLIA [id number] [address] [place] [address] [place] AMERICAGlomerular filtration rate [Volume Rate/Area] in Serum, Plasma or Blood by CreatinineOrdered By: Tyshawn Snow on 21-51-8484Xxnsqacfuy filtration rate [Volume Rate/Area] in Serum, Plasma or Blood by Xdtsmmhsez61 mL/min/1.73m???Low>=60[facility] Comment on above:Estimated Glomerular Filtration Rate (eGFR) is calculated using the 2020 CKD-EPI creatinine equation. This equation utilizes serum creatinine, sex, and age as parameters. The creatinine assay has traceable calibration to isotope dilution-mass spectrometry. Refer to KDIGO guidelines for clinical inte rpretation. In patients with unstable renal function, e.g. those with acute kidney injury, the eGFRmay not accurately reflect actual GFR.HIGH SENSITIVITY TROPONIN T (INITIAL)on 05-07-7247Syysvifq T.cardiac High sensitivity method [Mass/Vol]14 ng/LHigh<12[facility] HospitalComment on above:Order Comment: Specimen Type: BLOOD SPECIMEN Order[facility] Facility: [facility] Address: [address] [place], [place] [address]Oespkjxqa By: #### [id number] #### [facility] CLIA [id number] [address] STATES OF AMERICAHIGH SENSITIVITY TROPONIN T (SECOND)on 83-21-4879Ieysknjx T.cardiac High sensitivity method [Mass/Vol]12 ng/LHigh<12 [facility] HospitalComment on above:Order Comment: Specimen Type: URINE SPECIMEN Ordering Facility: [facility] Address: [address] [place], [place] [address]Performed By: #### 77230-4 #### [facility] CLIA [id number] [address] [facility] [place] [address] [place] #### 630-4 #### [facility] CLIA [id number] [address] [facility] [address] STATES OF AMERICAHematocrit Auto (Bld) [Volume fraction]Ordered By: Tyshawn Snow on 77-26-5897Tnnvopkvuk (Bld) [Volume fraction]36.9 %36.0-46.0[facility] CampusHemoglobin [Mass/volume] in BloodOrdered By: Tyshawn Snow on 20-31-2393Edryzdrvpo (Bld) [Mass/Vol]12.3 g/dL11.5-15.5FWilson Memorial HospitalINR in Platelet poor plasma by Coagulation assayOrdered By: Tyshawn Snow on 25-13-6506FFG Coag (PPP) [Relative time]1.1 {INR}0.9-1.3FWilson Memorial HospitalComment on above:Vitamin K Antagonist (VKA) Therapeutic Range: INR 2 to 3 (Target INR of 2.5)Note: For patients treated with VKA drugs, such as warfarin, the [place] College of Chest [employer]icians 2012 Guideline recommends [...] of 3).Indy GARCIA, et al. Chest 2012, 141:7S-47SJw WASHINGTON, et al. JACC 2017, 70: 252-289Laboratory - Chemistry and Chemistry - challengeOrdered By: Tyshawn Snow on 12-18-2024 Albumin [Mass/Vol]3.7 g/dLLow3.9-4.9[facility] CampusALP [Catalytic activity/Vol]55 U/L42-242UznlqctscKettering Health Main CampusALT [Catalytic activity/Vol]9 U/L7-38[facility] CampusAST [Catalytic activity/Vol]16 U/K05-76YvuqsujtaKettering Health Main CampusBilirubin [Mass/Vol] 0.2 mg/dL0.2-1.3FWilson Memorial HospitalCalcium [Mass/Vol]9.4 mg/dL 8.5-10.2FWilson Memorial HospitalChloride [Moles/Vol]99 mmol/L98-107 [facility] CampusCK [Catalytic activity/Vol]37 U/AMnk32-142 [facility] CampusCO2 [Moles/Vol]24 mmol/B19-59JzrmdnrepKettering Health Main CampusCreatinine [Mass/Vol]1.24 mg/dLHigh0.58-0.96[facility] CampusGlucose [Mass/Vol]153 mg/fKOovd46-21UszmyiqxuKettering Health Main CampusComment on above:The [place] Diabetes Association (ADA) provides guidance for cutoff [...] hyperglycemia or hyperglycemic crisis, random plasma glucose resultsgreater than or equal to 200 mg/dL meet the criteria for diagnosis of diabetes.Reference: Standardsof Medical Care in Diabetes 2016, [place] Diabetes Association. Diabetes Care. 2016.39(Suppl 1).Lipase [Catalytic activity/Vol]24 U/D09-44CjxprzprdKettering Health Main CampusMagnesium [Mass/Vol]2.0 mg/dL1.7-2.3 [facility] CampusPotassium [Moles/Vol]3.1 mmol/LLow3.7-5.1 [facility] Hospitalodium [Moles/Vol]138 mmol/E583-365DnpgkgexxKettering Health Main CampusUrea nitrogen [Mass/Vol]22 mg/dLHigh7-21[facility] CampusLaboratory - Hematology and Cell countsOrdered By: Tyshawn Snow on 10-88-9975Nppawliwdal (Bld) [#/Vol]0.34 10*3/uL<0.46[facility] CampusImmature granulocytes/100 WBC (Bld)0.1 %[facility] CampusLeukocytes [#/volume] corrected for nucleated erythrocytes in Blood by Automated counOrdered By: Tyshawn Snow on 12-18-2024 WBC corrected for nucl RBC Auto (Bld) [#/Vol]7.47 k/uL3.70-11.00[facility] CampusLipase SerPl-cCncon 71-91-3234Oqdpqc [Catalytic activity/Vol]24 U/HKfqzxl78-61Vqis HospitalComment on above:Order Comment: Specimen Type: BLOOD SPECIMEN [facility] Address: [address] [place], [place] [address]Performed By: #### 2157-6, 05333-3, 3040-3, 79079-4 #### [facility] CLIA [id number] [address] [facility] [place] [address] [place] AMERICALymphocytes Auto (Bld) [#/Vol]Ordered By: Tyshawn Snow on 08-20-7908Vqubtbbsmal (Bld) [#/Vol]3.86 10*3/uL1.00-4.00 [facility] CampusLymphocytes/100 WBC Auto (Bld)Ordered By: Tyshawn Snow on 99-58-6899Soqnfbeyjnh/100 WBC (Bld)51.7 %[facility] Auto (RBC) [Entitic mass]Ordered By: Tyshawn Snow on 60-47-5694TSY (RBC) [Entitic mass]32.5 pg26.0-34.0[facility] CampusMCHC Auto (RBC) [Mass/Vol]Ordered By: Tyshawn Snow on 70-27-7877NJPK (RBC) [Mass/Vol]33.3 g/dL30.5-36.0Fire[facility] Medical CenterMCV Auto (RBC) [Entitic vol] Ordered By: Tyshawn Snow on 84-60-4574MRB (RBC) [Entitic vol]97.4 fL80.0-100.0 [facility] CampusMagnesium SerPl-mCncon 42-11-8942Dxjursecd [Mass/Vol]2.0 mg/dLNormal1.7-2.3Avon HospitalComment on above:Order Comment: Specimen Type: BLOOD SPECIMEN Order[facility] Facility: [facility] Address: [address] [place], [place] [address]Performed By: #### 2157-6, 90935-8, 3040-3, 82298-1 #### [facility] CLIA [id number] [address] [place] [address] [place] AMERICAMonocytes Auto (Bld) [#/Vol]Ordered By: Tyshawn Snow on 03-78-4785Vfszoiqav (Bld) [#/Vol]0.70 10*3/uL<0.87[facility] CampusMonocytes/100 WBC Auto (Bld)Ordered By: Tyshawn Snow on 80-41-2063Cgyxqvglb/100 WBC (Bld)9.4 %[facility] CampusNT-proBNP SerPl-ncon 53-22-7043Kdywifvhtce peptide.B prohormone N-Terminal [Mass/Vol] 507 pg/mLHigh<450Avon HospitalComment on above:Order Comment: Specimen Type: BLOOD SPECIMEN [facility] Facility: [facility] Address: [address] [place], [place] [address]Performed By: #### 59569-3 #### [facility] CLIA [id number] [address] [place] [address] [place] AMERICANatriuretic peptide.B prohormone N- Terminal [Mass/volume] in Serum or PlasmaOrdered By: Tyshawn Snow on 12-18-2024 Natriuretic peptide.B prohormone N-Terminal [Mass/Vol]507 pg/mLHigh<450[facility] CampusNeutrophils Auto (Bld) [#/Vol]Ordered By: Tyshawn Snow on 46-39-0294Xcigmefguwn (Bld) [#/Vol]2.47 10*3/uL1.45-7.50[facility] CampusNeutrophils/100 WBC Auto (Bld)Ordered By: Tyshawn Snow on 00-56-7561Webtewyjefv/100 WBC (Bld)33.0 %[facility] CampusNo Panel InformationOrdered By: Tyshawn Snow on 64-35-7053Vsrxehbd T Hi Sens Cardiac Gsjygjne56 ng/LHigh<12[facility] CampusEthyl Alcohol Emofl074 mg/dLHigh<11[facility] CampusComment on above:Values > 80 mg/dL may indicate intoxicationImmature Granulocyte # (Auto)<0.03 k/uL<0.10 [facility] CampusNucleated RBC Auto (Bld) [#/Vol]Ordered By: Tyshawn Snow on 22-60-1130Gogvappvt RBC (Bld) [#/Vol]10*3/uL<0.01[facility] CampusNucleated erythrocytes [Presence] in Blood by Automated countOrdered By: Tyshawn Snow on 23-89-5733Cdfjcidda RBC Auto Ql (Bld)0.0 /100{WBC}[facility] CampusPT panel Coag (PPP)on 02-35-2527VYJ Coag (PPP) [Relative time]1.1 {INR}Normal0.9-1.3Avon HospitalComment on above: Order Comment: Specimen Type: BLOOD SPECIMENOrdering Facility: [facility] Address:[address] [place], [place] [address]Result Comment: Vitamin K Antagonist (VKA) Therapeutic Range: INR 2 to 3 (Target INR of 2.5) Note: For patients treated with VKA drugs, such as warfarin, the [place] College of Chest Physicians 2012 Guideline recommends [...] 2.5 to 3.5 (target INR of 3). Janistt GH, et al. Chest 2012, 141:7S-47S Jw RA, et al. [facility] 2017, 70: 252-289Performed By: #### 44637-7 #### [facility] CLIA [id number] [address] STATES OF [facility] #### 630-4 #### [facility] CLIA [id number] [address] [place], [place] [address]PT Coag (PPP) [Time]11.7 s Normal9.7-13.0[facility] City HospitalComment on above:Order Comment: Specimen Type: BLOOD SPECIMENOrdering Facility: [facility] Address:[address] [place], [place] [address]Performed By: #### 73442-6 #### [facility] CLIA [id number] [address] [place] [address] [place] #### 630-4 #### [facility] CLIA [id number] [address] [place] [address] [place] AMERICAPlatelet mean volume Auto (Bld) [Entitic vol]Ordered By: Tyshawn Snow on 58-20-0982Mypbcinf mean volume (Bld) [Entitic vol]8.7 fLLow9.0-12.7FWilson Memorial HospitalPlatelets Auto (Bld) [#/Vol]Ordered By: Tyshawn Snow on 73-84-9161Bpxwvcvdy (Bld) [#/Vol] 209 10*3/nX976-415EaiaculveKettering Health Main CampusProtein [Mass/volume] in Serum or PlasmaOrdered By: Tyshawn Snow on 19-06-3266Ukesuiz [Mass/Vol]6.4 g/dL 6.3-8.0[facility] CampusProthrombin time (PT)Ordered By: Tyshawn Snow on 50-42-8261RG Coag (PPP) [Time]11.7 s9.7-13.0[facility] CampusRBC Auto (Bld) [#/Vol]Ordered By: Tyshawnrosette Snow on 33-53-9938ZXP (Bld) [#/Vol]3.79 10*6/uLLow3.90-5.20[facility]lap Memorial Hospitalerum or plasma anion gap determinationOrdered By: Tyshawn Snow on 54-31-1355Fdxcn gap [Moles/Vol]15 mmol/L-[facility] CampusXR CHEST 1V FRONTAL PORTon 16-36-4518KF CHEST 1V FRONTAL PORT* * *Final Report* * * DATE OF [...] described above with no definite acute disease. Civil Service Worker: SHIVANI Transcribe Date/Time: Dec 18 2024 8:55P Dictated by : KATRIN PHILIP MD This examination was interpreted and the report reviewed and electronically signed by: KATRIN PHILIP MD on Dec 18 2024 8:56PM EST [id number] HospitalLaboratory - Chemistry and Chemistry - challengeOrdered By: Elliot Starks on 31-46-0643Hcxawbweu Ql (U)[facility] Medical CenterGlucose (U) [Mass/Vol]NegativeKettering Health Main CampusKetones Ql (U)NegativeKettering Health Main CampuspH (U)5 [pH] [facility] Memorial Hospitalpecific gravity (U) [Rel density]1.015 [facility] CampusUrobilinogen (U) [Mass/Vol]0.2 mg/dLKettering Health Main CampusLaboratory - Specimen informationOrdered By: Elliot Starks on 58-92-6542Xsoxipnvst (U)clearKettering Health Main CampusColor (U) yellowKettering Health Main CampusLaboratory - UrinalysisOrdered By: Elliot Starks on 22-95-1040Yazzwejop esterase Test strip Ql (U)NegativeKettering Health Main CampusNitrite Ql (U)PositiveKettering Health Main Campus Protein Ql (U)NegativeKettering Health Main CampusNo Panel Information Ordered By: Elliot Starks on 64-51-0119Sllpf Occult Blood++[facility] CampusCBC (NO DIFF)on 16-98-0154Kkvgfsqmqwl distribution width (RBC) [Ratio]12.8 %Bpnoin75.5-15ProHouston Methodist Willowbrook HospitalComment on above:Performed By: #### CBC #### [facility] ([facility]) [address] [place] [address] VIRHematocrit (Bld) [Volume fraction]40.0 %Tsxpzu14-46YbxLhegsvHouston Methodist Willowbrook HospitalComment on above:Performed By: #### CBC #### [facility] ([facility]) [address] [place] [address] VIRHemoglobin (Bld) [Mass/Vol]13.6 g/eYZzsdzm93.7-15.5PPremier HealthComment on above:Performed By: #### CBC #### [facility] ([facility]) [address] [place] [address] VIRH (RBC) [Entitic mass]32.7 woNkderg76-13JwfBzzamiHouston Methodist Willowbrook HospitalComment on above:Performed By: #### CBC #### [facility] ([facility]) [address] [place] [address] VIRHC (RBC) [Mass/Vol]34.1 g/jWOzaljj28-97ZjnAczhnuHouston Methodist Willowbrook HospitalComment on above:Performed By: #### CBC #### [facility] ([facility]) [address] [place] [address] VIRMCV (RBC) [Entitic vol]96 gQTokwby86-726HuwYiwgog [facility] HospitalComment on above:Performed By: #### CBC #### [facility] ([facility]) [address] [place] [address] VIRPlatelet mean volume (Bld) [Entitic vol]7.0 fLNormal7-12 [facility]sburg HospitalComment on above:Performed By: #### CBC #### [facility] ([facility]) [address] [place] [address] VIRPlatelets (Bld) [#/Vol]206 10*3/aIBaplyg418-678QtzNfmnxm [facility]ont HospitalComment on above:Performed By: #### CBC #### [facility] ([facility]) [address] [place] [address] VIRRBC COUNT4.16 X10E12/LNormal3.8-5.2PPremier HealthComment on above:Performed By: #### CBC #### [facility] ([facility]) [address] [place] [address] VIRWBC (Bld) [#/Vol]5.1 10*3/uLNormal4-11[facility] Perrysburg HospitalComment on above:Performed By: #### CBC #### [facility] ([facility]) [address] [place] [address] VIRCOMPREHENSIVE METABOLIC PANELon 06-47-6549Bpcukps [Mass/Vol] 4.2 g/dLNormal3.2-5.3PPremier HealthComment on above:Performed By: #### CMP #### [facility] ([facility]) [address] [place] [address] VIRALP [Catalytic activity/Vol]48 U/KAbnshz15-016JvlWfwzjlHouston Methodist Willowbrook HospitalComment on above:Performed By: #### CMP #### [facility] ([facility]) [address] [place] [address] VIRALT [Catalytic activity/Vol]10 U/LNormal<=31PPremier HealthComment on above:Performed By: #### CMP #### [facility] ([facility]) [address] [place] [address] VIRAnion gap [Moles/Vol]8 mmol/LNormal5-15ProHouston Methodist Willowbrook HospitalComment on above:Performed By: #### CMP #### [facility] ([facility]) [address] [place] [address] VIRAST [Catalytic activity/Vol]17 U/LNormal<=41[facility] HospitalComment on above:Performed By: #### CMP #### [facility] ([facility]) [address] [place] [address] VIRBilirubin [Mass/Vol]0.5 mg/dLNormal0.3-1.2PPremier HealthComment on above:Performed By: #### CMP #### [facility] ([facility]) [address] [place] [address] VIRCalcium [Mass/Vol]10.0 mg/dLNormal8.5-10.5PPremier HealthComment on above:Performed By: #### CMP #### [facility] ([facility]) [address] [place] [address] VIRChloride [Moles/Vol]101 mmol/XJkvtja02-489QyxBtkjszHouston Methodist Willowbrook HospitalComment on above:Performed By: #### CMP #### [facility] ([facility]) [address] [place] [address] VIRCO2 [Moles/Vol]32 mmol/VOugxeu58-14TprPuiwxbPremier HealthComment on above:Performed By: #### CMP #### [facility] ([facility]) [address] [place] [address] VIRCreatinine [Mass/Vol]1.06 mg/dLHigh0.40-1.00ProHouston Methodist Willowbrook HospitalComment on above:Result Comment: METHOD TRACEABLE TO IDMS STANDARDPerformed By: #### CMP #### [facility] ([facility]) [address] [place] [address] VIRGFR/1.73 sq M.predicted among non-blacks MDRD (S/P/Bld) [Vol rate/Area]54 mL/min/{1.73_m2}Low>=60ProHouston Methodist Willowbrook HospitalComment on above: Result Comment: Reported eGFR is based on the CKD-EPI 2020 equation that does not use a race coefficient.Performed By: #### CMP #### [facility] ([facility]) [address] [place] [address] VIRGlucose [Mass/Vol]109 mg/bTBkyi43-41TcwXqrjgdHouston Methodist Willowbrook HospitalComment on above:Performed By: #### CMP #### [facility] ([facility]) [address] [place] [address] VIRPotassium [Moles/Vol]3.9 mmol/LNormal3.5-5.0[facility] HospitalComment on above:Performed By: #### CMP #### [facility] ([facility]) [address] [place] [address] VIRProtein [Mass/Vol]7.2 g/dLNormal6.0-8.0ProHouston Methodist Willowbrook HospitalComment on above:Performed By: #### CMP #### [facility] ([facility]) [address] [place] [address] VIRSodium [Moles/Vol]141 mmol/XIonixi772-598WiwQooquv [facility]ont HospitalComment on above:Performed By: #### CMP #### [facility] ([facility]) [address] [place] [address] VIRUrea nitrogen [Mass/Vol]27 mg/dLNormal5-27ProMedica Island HospitalComment on above:Performed By: #### CMP #### [facility] ([facility]) [address] [place] [address] VIRMAGNESIUMon 43-00-8824Tamklsnbo [Mass/Vol]1.9 mg/dLNormal 1.8-2.6ProKettering Health Hamilton HospitalComment on above:Performed By: #### MG #### [facility] ([facility]) [address] [place] [address] VIRPOCT EKGOrdered By: Cora Sandoval on 72-59-7122GylZfnrfxAshtabula General HospitalAmbulatory Visit Summaryon 19-32-2388Srjvzszygn Visit SummaryAmbulatory Visit Summary BETTIE BURNS :1945 Visit Date:10/26/2024 Ambulatory Visit Instructions Your Diagnosis Mixed incontinence Frequent UTI History of kidney stones Microscopic hematuria Anticoagulated History of breast cancer Former smoker Your Care Team Attending Physician - Jacqui MOTT, Maria E Primary Care Physician - MARIA LUISA VILLEGAS, ELLIOT Referring Physician - Paul VILLEGAS, Axel Palacios This Is Your Medications List Misc [...] 40 mg Cap-DR) potassium chloride (Potassium Chloride (Vjh-Wojm-Itb 10) 10 mEq oral tablet, extended release) [...] E Osman PA-C Where: [facility] [address] [place] [address]- Medications What How Much When Why Instructions [...] 1 Capsules Unchanged potassium chloride (Potassium Chloride (Bbe-Gccq-Zrr 10) 10 mEq oral tablet, extended release) [...] yet, please contact Health Information Management at [phone] to get signed up today. Language Information Language assistance services are available as needed. RheaMercy Memorial HospitalUrology Office/Clinic Noteon 30-03-9580Yqbkakd Office/Clinic NoteUrology Office/Clinic Note Chief Complaint F/U with PVR [...] off and repeat Botox is desired Ordered: 17234 Measure Post Void residual urine and/or bladder capacity by US- non-imaging Urnls Dip Stick Auto w/o Microscopy POC 57161 2. Frequent UTI (N39.0: Urinary tract infection, [...] -Cont symptom monitoring -High fluid intake, add lemon/[place] -Moderate animal protein, increase fruits and vegetables 4. 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 She has hada hematuria workup including a scope in the past at [facility]. Denies gross hematuria. CTU 07/18/24 - neg for filling defects, 3 mm right ureteral stone noted. Follow up CT scan confirmedpassage. S/p cysto 09/19/24 - negative for b.t., lesions, stones or foreign bodies. Cystitis cystica. Moderate vaginal atrophy. UA today w/ moderate bloo (more content not included)...Corey HospitalComment on above:Result Comment: Electronically Signed By: Maria E Osman PA-C\.br\Date and Time Signed: 10/26/24 09:05 EDTInpatient Patient Summaryon 93-35-7131Yakwymdsi Patient SummaryInpatient Patient Summary [place] [address] Clinical Summary Person Information Name: BETTIE BURNS Age: 79 Years : 1945 Sex: Female PCP: ELLIOT STARKS MD Marital Status: Race: White Ethnicity: Non- or Language: Maldivian Visit Id: Visit Reason: MIXED INCONTINENCE Speciality: Acuity: Enc Type: Outpatient Med Service: Surgery Arrival: 09/19/2024 07:39:26 Discharge: Dispo Type: Address: [address] [place] [id number] Provider Notes: Diagnosis: Mixed incontinence; Recurrent UTI; [...] amount to urethra/vagina 3x a week for 1month, then 2x a week afterwards. Refills: 2. flecainide (flecainide 50 mg Tab) 1 Tablets. hydrochlorothiazide (hydrochlorothiazide 25 mg Tab) By Mouth every day. lisinopril (lisinopril 20 mg Tab) Misc Prescription (BACLOFEN 10 MG TABLET) 0. naproxen (Aleve) Non-Formulary Medication (Neuveria Vitamin OTC) omeprazole (omeprazole 40 mg Cap-DR) 1 Capsules. potassium chloride (Potassium Chloride (Tww-Cakq-Tgy 10) 10 mEq oral tablet, extended release) 1 Tablets. sumatriptan (SUMAtriptan 25 mg Tab) 1 Tablets. trazodone (traZODONE 50 mg Tab) 1 Tablets. trospium (trospium 60 mg oral capsule, extended release) 1 Capsules By Mouth at bedtime. Refills: 3. Care Team Members: Attending Physician: Axel Miller MD Consulting Physician: Referring Physician: Axel Miller MD Follow up: With: Address: When: Maria E Osman Comments: Office to schedule follow up in 1 month with PVR With: Address: When: Axel Miller Patient Education Information: EU - Cystoscopy with Botox Injection Discharge Instructions (CUSTOM)[facility] HospitalMain OR Intraoperative Recordon [id number] OR Intraoperative RecordMain OR Intraoperative Record IntraOp Document Type FTURO Summary Primary Physician: Axel Miller MD Finalized Date/Time: 09/19/24 08:27:50 Pt. Name: BETTIE BURNS /Sex: 1945 Female Med Rec #: [id number] Physician: Axel Miller MD Financial #: [id number] Pt. Type: O Room/Bed: / Admit/Disch: 09/19/24 07:39:26 - Institution: Case Times FTURO Entry 1 Patient Times In Room 09/19/24 08:12:00 Out Room 09/19/24 08:24:00 Procedure Times Start 09/19/24 08:17:00 Stop 09/19/24 08:20:00 Anesthesia Times Last Modified By: Roxy King 09/19/24 08:27:24 General Comments: BOTOX 100 UNITS: EXP: AND LOT: [id number].RICARDO MOREIRA. Case Attendance FTURO Entry 1 Entry 2 Entry 3 Case Attendee Axel Miller MD, Kelsie E Miller, Laura C Role Performed Surgeon - Primary Loan Broker - Primary Scrub - Primary Time In [...] UNITS BOTOX Primary Procedure Yes Primary Surgeon Axel Miller MD Start 09/19/24 08:17:00 Stop 09/19/24 [...] Position Verified Availability Equipment, Medication Time Out Axel Miller MD, Verified (If Participants Roxy King, [...] Document Signatures Signed By: Roxy King 09/19/24 08:27NoCleveland Clinic Luther[facility] HospitalMain OR Preoperative Recordon 11-95-0982Uxek OR Preoperative RecordMain OR Preoperative Record Holding Area Document Type FTURO Summary Primary Physician: Axel Miller MD Finalized Date/Time: 09/19/24 08:17:11 Pt. Name: BETTIE BURNS Diana RamirezB./Sex: 1945 Female Med Rec #: [id number] Physician: Axel Miller MD Financial #: [id number] Pt. Type: O Room/Bed: / Admit/Disch: 09/19/24 [...] or her perioperative plan of care The patient'sright to privacy is maintained Surgery Checklist FTURO Entry 1 Patient Birthday, ID Band Procedure History and Physical, Identification: Check, Patient Verification: Surgical Consent, With Participation Patient NPO after Midnight: n/a Personal Items: Glasses Limitations: up ad vadim Complaints of Pain: No Skin Integrity Intact, Olivarez, Warm, & Dry Vitals - EU Blood [...] Unfinalizing Freetext Reason for Unfinalizing 09/19/24 08:16 [id number] Adding Additional DataCorey Hospital Operative Reporton [id number] ReportOperative Report Patient: BETTIE BURNS Age: 79 years Sex: Female : 1945 Associated Diagnoses: None Author: Axel Miller MD Procedure Operative Information Details: Date/ [...] suite, Female Prep (Patient is placed in modifieddorso/lithotomy position, 5 cc 2% Xylocaine Jelly is placed per Urethra, Straight cath inserted to obtain urine specimen, 60 cc 2% Xylocaine liquid inserted into bladder, 5 additional cc 2% XylocaineJelly is placed per Urethra, Patient in sitting position for 20 min dwell), Urine Specimen Results N egative for infection, Patient prepped in the usual fashion with Betadine solution (Hibiclens), After waiting several minutes the Cystoscope is introduced. Procedure: The trigone was identified and evaluated. The bladder was instilled with enough saline to achieve adequate visualization for the injections. The needle was inserted approximately 2 mm intothe detrusor. A total of 11 injections with 1 ml volume was delivered at each site, total 100 unitsincluding 1 ml saline flush at the end, evenly spaced out throughout the bladder taking care to avoid the ureteral orficies. There was excellent hemostasis at the end of the procedure. The cystoscopewas removed and the patient tolerated the procedure [...] clinic note regarding vaginal atrophy and recurrent UTIs.Normal [facility] HospitalComment on above:Result Comment: Electronically Signed By: Paul VILLEGAS, Axel Palacios\.br\Date and Time Signed: 09/19/24 08:25EDT Outpatient Surgery Discharge Instructionon [id number] Surgery Discharge InstructionOutpatient Surgery Discharge Instruction [place] [id number] Patient Discharge Instructions PERSON INFORMATION Name: BETTIE BURNS Date of : 1945 Current Date: 09/19/2024 08:23:16 PHYSICIANS Admitting Physician: Axel Miller MD Comment: Discharge Diagnosis: Mixed incontinence; [...] 1 month with PVR With: Address: When: Axel Miller Comment: PATIENT EDUCATION INFORMATION Instructions: Cystoscopy [...] to serve you. Thank you for choosing [facility] RheaFirsthealth [facility] Hospital - Hokebarry [facility] CenterC Urineon 49-34-7951Qmzugkhi identified Cx Nom (U)Microbiology PROCEDURE: Urine Culture [R1] SOURCE: U CleanCatch [...] Locations R1: This test was performed at: [facility], [address] [place] [address], [address] [place] [address], ZqpivkRadezdCorey HospitalComment on above:Performed By: #### [id number] #### [facility] [address] [place] [address]Ovwcrrvzd By: #### [id number] ####[address] [address] Urineon 31-87-1897Fduqbawr identified Cx Nom (U)Microbiology PROCEDURE: Urine Culture [R1] SOURCE: U Random BODY SITE: COLLECTED DATE/TIME: 06/22/2024 13:48 EST RECEIVED DATE/TIME: 06/22/2024 18:48 EST START DATE/TIME: 06/22/2024 18:48 EST FREE TEXT SOURCE: Maria E Osman PA-C, PA-C, Maria E FINAL REPORTS Final Report [] Verified Date/Time: 06/24/2024 10:59 EST No growth at 2 days. Performing Locations R1: This test was performed at: [facility], [address] [place] [address], [id number] [place] [address], VnlscvHszaweCorey HospitalComment on above:Performed By: #### [id number] #### [facility] [address] [place], [place] [address]Rmfvxeequz Visit Summaryon 92-92-1708Eddagmhfvh Visit Summary Ambulatory Visit Summary BETTIE BURNS [...] 40 mg Cap-DR) potassium chloride (Potassium Chloride (Cqg-Cbot-Rrp 10) 10 mEq oral tablet, extended release) [...] Services Thursday 8:15 AM EDT Where: [facility] Medications What How Much [...] 1 Capsules Unchanged potassium chloride (Potassium Chloride (Ezb-Lvby-Njr 10) 10 mEq oral tablet, extended release) [...] you for choosing us for your care. Corey HospitalURINALYSISOrdered By: Jocelyn Lyon on 38-17-4896Qplvawrq Auto Ql (U)1+ /HPFInvalid Interpretation Code Trace/HPFHILLCREST [facility] UA Auto SSBilirubin Ql (U)NegativeNormalNegativemg/dLHILLCREST HOSPITAL [facility] UA Auto SSClarity (U)Clear (06/22/24 1:48 PM)NormalClearFNORTHEASTERN HEALTH SYSTEM – [facility] UA Auto SSColor (U)Light-Yellow 1 (06/22/24 1:48 PM)NormalYellowHILLCREST HOSPITAL [facility] UA Auto SSComment on above:Interpretive Data: Microscopic readings are only performed on those samples that meet specific criteria set forth by [facility].Epithelial cells.squamous Auto (Urine sed) [#/Area]0-2 graded/HPFInvalid Interpretation CodeHILLCREST HOSPITAL [facility] UA Auto SSGlucose Ql (U)NegativeNormalNegativemg/dLHILLCREST HOSPITAL [facility] UA Auto SS Hemoglobin Auto test strip (U) [Mass/Vol]2+ *ABN* (06/22/24 1:48 PM)Invalid Interpretation CodeNegativeHILLCREST HOSPITAL [facility] UA Auto SSKetones Auto test strip Ql (U)NegativeNormalNegativemg/dLHILLCREST HOSPITAL [facility] UA Auto SSLeukocyte esterase Auto test strip Ql (U)250 Felipe/uL *ABN* (06/22/24 1:48 PM)Invalid Interpretation CodeNegativeHILLCREST [facility]OS[facility]ITAL [facility] UA Auto SSMucus Auto Ql (U)Negative (06/22/24 1:48 PM)NormalNegativeHILLCREST HOS[facility]ITAL [facility] UA Auto SSNitrite Auto test strip Ql (U) NegativeNormalNegativemg/dLHILLCREST HOSPITAL [facility] UA Auto SSpH (U)6.0 *NA* (06/22/24 1:48 PM)Invalid Interpretation Code5.0 - 9.0[facility] UA Auto SSProtein Ql (U)NegativeNormalNegativemg/dLHILLCREST HOSPITAL [facility] UA Auto SSRBC Ql (U)4-20 graded/HPFInvalid Interpretation Code0-3graded/HPFHILLCREST HOS[facility]ITAL [facility] UA Auto SSSpecific gravity (U) [Rel density]1.013 *NA* (06/22/24 1:48 PM)Invalid Interpretation Code1.005 - 1.030[facility] UA Auto SS Urobilinogen (U) [Mass/Vol]NegativeNormalNegativemg/dLHILLCREST HOSPITAL [facility] UA Auto SSWBC Auto (Urine sed) [#/Area]31-75 *ABN* (06/22/24 1:48 PM)Invalid Interpretation Code0-5FTM UA Auto SSURINALYSISOrdered By: Catina Corona on 30-87-8272UO Spec DescRandom Urine (06/22/24 1:48 PM)NormalHILLCREST HOSPITAL [facility] UA Auto SSUrinalysis with Microon 42-94-5557Uesdglkq Auto Ql (U)1+ /HPFAbnormalTraceFirsthealth Moore Regional Hospital - Hokeer Brandenburg CenterComment on above: Performed By: #### [id number] #### [facility] [address] [place], [place] [address]Xfgwvoonh Ql (U)NegativeNormalNegativeMercy Memorial HospitalComment on above:Performed By: #### [id number] #### [facility] [address], [place] [address]Tfekuho (U)ClearNormalClearMercy Memorial HospitalComment on above:Performed By: #### [id number] #### [facility] [address], [place] [address]Bgtpc (U)Light-YellowNormalYellowMercy Memorial Hospital Comment on above:Result Comment: Microscopic readings are only performed on those samples that meet specific criteria set forth by [facility].Performed By: #### [id number] #### [facility] [address], [place] [address]Fvgogxqsdd cells.squamous Auto (Urine sed) [#/Area]0-2Invalid Interpretation CodeMercy Memorial HospitalComment on above:Performed By: #### [id number] #### [facility] [address], [place] [address]Lxwktsc Ql (U)NegativeNormalNegativeMercy Memorial Hospital Comment on above:Performed By: #### [id number] #### [facility] [address], [place] [address]Ibnukmamza Auto test strip (U) [Mass/Vol]2+AbnormalNegative [facility] Memorial HospitalComment on above:Performed By: #### [id number] #### [facility] [address], [place] [address]Soooisg Auto test strip Ql (U)NegativeNormalNegativeMercy Memorial HospitalComment on above:Performed By: #### [id number] #### [facility] [address], [place] [address]Kszricozk esterase Auto test strip Ql (U)250 Felipe/uLAbnormal NegativeMercy Memorial HospitalComment on above:Performed By: #### [id number] #### [facility] [address], [place] [address]Ddzcw Auto Ql (U)NegativeNormalNegativeMercy Memorial HospitalComment on above:Performed By: #### [id number] #### [facility] [address], [place] [address]Kxsbuyt Auto test strip Ql (U)NegativeNormalNegativeMercy Memorial HospitalComment on above:Performed By: #### [id number] #### [facility] [address] [place] [address]mC (U)6.0 [pH]Invalid Interpretation Code5.0-9.0Mercy Memorial HospitalComment on above:Performed By: #### [id number] #### [facility] [address] [place] [address]Cdfmbhy Ql (U)NegativeNormalNegKindred Healthcare Comment on above:Performed By: #### [id number] #### [facility] [address] [place] [address]ROO Ql (U)5-05Rbeptzqo7-5SuamurSelect Medical Specialty Hospital - Boardman, IncComment on above:Performed By: #### [id number] #### [facility] [address] [place] [address]Xwppbvrc gravity (U) [Rel density]1.013Invalid Interpretation Code1.005-1.030Mer[facility] Memorial HospitalComment on above:Performed By: #### [id number] #### [facility] [address] [place] [address]Pnrwgweinckx (U) [Mass/Vol]NegativeNormalNegativeMercy Memorial HospitalComment on above:Performed By: #### [id number] #### [facility] [address] [place] [address]CFG Auto (Urine sed) [#/Area]67-78Omrbbewl6-8DjqolmSelect Medical Specialty Hospital - Boardman, IncComment on above:Performed By: #### [id number] #### [facility] [address] [place] [address]Zmsy of Urine collection methodRandom UrineNormalMercy Memorial HospitalComment on above:Performed By: #### [id number] #### [facility] [address] [place] [address]Slwfgkw Office/Clinic Noteon 83-71-6565Pxxxqkt Office/Clinic NoteUrology Office/Clinic Note Chief Complaint urinary incontinence HPI [...] well nourished, in no acute distress. Assessment/Plan [facility] patient, last seen in-office 05/27/23 78 y/o female presents today for worsening urge incontinence 1. Mixed incontinence (N39.46: Mixed incontinence) UUI>JESUS BBSQ 27 (24) PVR 45 mL UA today shows small leuks, moderate blood, neg nitrites Patient currently taking Trospium 20 mg BID. States her urinary sxs were controlled with medicationuntil about a week ago. Since last week, [...] and would like to proceed with cystoscopy todetermine candidacy for Botox. -Send urine for culture, [...] pending completion of cystoscopy w/ KML Ordered: 95586 Measure Post Void residual urine and/or bladder [...] Urnls Dip Stick Auto w/o Microscopy POC 05718 2. Frequent UTI (N39.0: Urinary tract infection, [...] No documented UTIs for (more content not included)...Corey HospitalComment on above:Result Comment: Electronically Signed By: Jacqui MOTT, Maria E\.br\Date and Time Signed: 06/22/24 15:08 ESTCNPNon [id number] Telephone (HEMASA) BETTIE BURNS ([id number]) 1945 F Date Time Provider Department 09/17/23 NGOZI ADAMS During your visit today, we recorded the following information about you: Ngozi Adams RN 09/17/2023 10:20 AM Signed Pt called to request yearly Mammogram order I have pended order as previously completed Pt requests to fax to Nori Lema [phone] BRM/HM: please review and sign if agreeable RICARDO Lopez Natalie, RN 09/17/2023 1:31 PM Signed Order faxed to Torey Julio Pt aware. Ngozi Adams RN Allergies As of Date: 09/17/2023 Noted Allergy Reaction BACLOFEN 03/19/2017 16 - Unknown CODEINE 03/19/2017 16 - Unknown HYDROCODONE-ACETAMINOPHEN 03/19/2017 16 - Unknown LEVOFLOXACIN 03/19/2017 16 - Unknown MORPHINE 12/03/2015 4 - Hives OXYCODONE 12/03/2015 4 - Hives PENICILLINS 12/03/2015 4 - Hives Date Reviewed: 03/16/2019 Reviewed by: Luz Self (Karissa), KARISSA - Fully Assessed Reason for Visit: Yearly Exam With Mammogram [188] Primary Visit Diagnosis:Encounter for screening mammogram for malignant neoplasm of breast [Z12.31] Order(s):[facility] SCREENING [facility] [[id number]] Order #: [id number] FUTURE Prescriptions as of 09/17/2023 - lisinopril (ZESTRIL, PRINIVIL) 20 mg tablet - XIIDRA 5 % dpet - cyclobenzaprine (FLEXERIL) 10 mg tablet Take 10 mg by mouth twice daily as needed. - temazepam (RESTORIL) 30 mg cap - losartan-hydrochlorothiazide (HYZAAR) 100-25 mg per tablet - meperidine [...] fibrillation (HCC) [I48.20] 03/24/2018 Encounter Status:Closed by TIN CHOI on 09/17/23[facility] METABOLIC PANELon [id number] gap [Moles/Vol]1 mmol/LMMOL/L [facility] SystemCalcium [Mass/Vol]8.7 mg/dLVan Wert County HospitalChloride [Moles/Vol]103 mmol/[facility]field HospitalComment on above:Please note: Triglyceride levels of 600mg/dL or higher may positively bias chloride results by approximately 2.1 mmolCO2 [Moles/Vol]30 mmol/[facility]field HospitalCreatinine [Mass/Vol]1.10 mg/dLVan Wert County HospitalGFR COMMENTAverage GFR for 70+ years old = 75.[facility] HospitalComment on above:Chronic Kidney disease, GFR = <60. Kidney failure, GFR = <15. The GFR estimate is not adjusted for extreme body surface area or acute process, nor has it been validated for women or ethnic groups other than and . GFR/1.73 sq M.predicted among blacks MDRD (S/P/Bld) [Vol rate/Area]62 mL/min/{1.73_m2}ml/min/1.73sq.[facility] HospitalGFR/1.73 sq M.predicted among non-blacks MDRD (S/P/Bld) [Vol rate/Area]51 mL/min/{1.73_m2}ml/min/1.73sq.[facility] HospitalGlucose post fast [Mass/Vol]141 mg/dLRegional Medical CenterComment on above: NORMAL <100 mg/dL PREDIABETES 101-126 mg/dL DIABETES 126 mg/dL or higher Interpretation and review of laboratory resultsAbnormMercer County Community Hospital Potassium [Moles/Vol]3.8 mmol/[facility] Hospitalodium [Moles/Vol]134 mmol/L LowVan Wert County HospitalUrea nitrogen [Mass/Vol]30 mg/dLChildren's Hospital Colorado North CampusCBC, EDIF, PLATELETon [id number] BASOPHIL COUNT0.0 10*3/uL0.0 - 0.2 10*3/uLVan Wert County HospitalBasophils/100 WBC (Bld)0.3 %0.0 - 2.0 %[facility] HospitalDifferential cell count method Nom (Bld)AUTO DIFF%[facility] HospitalEosinophils (Bld) [#/Vol]0.0 10*3/uL0.0 - 0.7 10*3/[facility] HospitalEosinophils/100 WBC (Bld)0.0 %0.0 - 11.0 %[facility] HospitalErythrocyte distribution width (RBC) [Ratio]13.2 %11.5 - 14.5 %[facility] HospitalHematocrit (Bld) [Volume fraction]33.6 %Low36.0 - 48.0 %[facility] HospitalHemoglobin (Bld) [Mass/Vol]12.0 g/dLVan Wert County HospitalInterpretation and review of laboratory resultsAbnormMercer County Community HospitalLymphocytes (Bld) [#/Vol]1.1 10*3/uLLow1.2 - 3.4 10*3/[facility] HospitalLymphocytes/100 WBC (Bld)16.4 %Low 20.0 - 55.0 %[facility] HospitalMCH (RBC) [Entitic mass]33.6 pg26.0 - 35.0 PG [facility] HospitalMCHC (RBC) [Mass/Vol]35.6 g/dLVan Wert County HospitalMCV (RBC) [Entitic vol]94.2 [facility] CenterMonocytes (Bld) [#/Vol]0.3 10*3/uL0.0 - 0.7 10*3/[facility] HospitalMonocytes/100 WBC (Bld)4.3 %0.0 - 10.0 %[facility] HospitalNeutrophils (Bld) [#/Vol]5.2 10*3/uL1.4 - 6.5 10*3/[facility] HospitalNeutrophils/100 WBC (Bld)79.0 %High37.0 - 75.0 %[facility] Platelet mean volume (Bld) [Entitic vol]7.0 fLLowVan Wert County HospitalPlatelets (Bld) [#/Vol]226 10*3/uL130 - 400 10*3/[facility] HospitalRBC (Bld) [#/Vol] 3.57 10*6/uLLow4.0 - 5.4 10*6/[facility] HospitalWBC (Bld) [#/Vol]6.6 10*3/uL 3.6 - 11.0 10*3/uLTrinity Health SystemBODY FLUID CELL COUNTon 58-29-2081Fslipfvxaa (Body fld)HAZYAKettering Health PrebleColor (Body fld)LIGHT YELLOWVan Wert County HospitalRBC Auto (Body fld) [#/Vol]3376/[facility] Specimen source Nom (Body fld)SYNOVIAL FLUIDVan Wert County HospitalWBC (Body fld) [#/Vol]57 10*3/uL/CMMAChildren's Hospital for RehabilitationDIFFERENTIAL, FLUIDon 36-80-4919ZGNAFKQSY, FLUID2 %[facility] HospitalComment on above:NO REFERENCE RANGE ESTABLISHEDEosinophils/100 WBC (Body fld)4 %[facility] HospitalComment on above:NO REFERENCE RANGE ESTABLISHEDLymphocytes/100 WBC (Body fld)22 %[facility] HospitalComment on above:NO REFERENCE RANGE ESTABLISHEDMESOTHELIAL CELLS, FLUID8 %[facility] HospitalComment on above:NO REFERENCE RANGE ESTABLISHED Monocytes+Macrophages/100 WBC Manual cnt (Body fld)48 %[facility] Comment on above:NO REFERENCE RANGE ESTABLISHEDNeutrophils/100 WBC (Body fld)16 %[facility] HospitalComment on above:NO REFERENCE RANGE ESTABLISHEDVan Wert County HospitalREPEAT ABO/RH (D) TYPINGon [id number] and Rh group Nom (Bld ) PositiveLancaster Municipal HospitalCREEN: MRSA ONLY, NARES (ISOLATION SCREEN)on [id number] isol Org specific cx Ql (Nose)Negative NEGATIVEMcCullough-Hyde Memorial HospitalTAPHYOCOCCUS AUREUS BY PCRNegativeNEGATIVEVan Wert County HospitalComment on above:TESTING PERFORMED BY [facility] Beaker Caro CenterXR Pelvis 2 Viewson [id number]/IMPRESSION: 1. 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 A few expected postoperative gas bubbles are noted lateral to the right femur greater trochanter. 2. Mild left hip osteoarthrosis is noted. 3. No fracture, malalignment, or other acute bony abnormality is seen. RADIOLOGYCLINICAL HISTORY: Post right hip surgery. PELVIS AP VIEW: COMPARISON: MRI OF 06/01/2023. RADIOLOGYMacParveen Johnson MD - 07/07/2023 CLINICAL HISTORY: Post right [...] or other acute bony abnormality is seen. [facility] CenterTownHog Hawthorn CenterRadiology Study observation (narrative)[employer]XR Pelvis 2 ViewsOrdered By: Parveen Mason on [id number] Work Phone: POCT EKGOrdered By: Samantha Gurrola on 06-02-2023 [facility] NorthStorific Caro CenterCOBALT AND CHROMIUM,WBon [id number] (Bld) [Mass/Vol]1.1APervasis Therapeutics Caro CenterComment on above:Reference range: <3.0 Unit: ng/mL PERFORMED BY Evoz Melvin (Bld) [Mass/Vol]<1.0[facility] Beaker Caro CenterComment on above:Reference range: <3.0 Unit: ng/mL (NOTE) Chromium and cobalt analysis performed by inductively coupled plasma/mass spectrometry (ICP/MS). Reference range is for patients with cuqru-zv-mrmed (MoM) orthopedic implants. The [place] Association of Hip and Knee Surgeons, the [place] Academy of Orthopaedic Surgeons, and The Hip Society, have published a consensus statement, Risk Stratification Algorithm for Management of Patients with Wvnjs-if-Abjjt Hip Arthroplasty. The algorithm is intended as an aid to orthopedic surgeons in the assessment and management of patients with Gzunq-mu-Zrnau bearings. The systematic risk stratification includes recommendations [...] developed and its performance characteristics determined by [employer]. It has not been cleared or approved by the Food and Drug Administration. [facility] HospitalC REACTIVE PROTEINon [id number] [Mass/Vol]48.4 mg/[facility]0 - 10 MG/[facility]field HospitalInterpretation and review of laboratory results AbnormalLancaster Municipal HospitalEDIMENTATION RATE, AUTOMATEDon [id number] (Bld) [Velocity]31 mm/[facility] HospitalInterpretation and review of laboratory resultsAbnormUpper Valley Medical Center Urinalysis - DIPSTICKon 14-88-7836Fuipeypzyd (U)Enchanted LightingyNbates county memorial hospital [employer] Other Bilirubin Ql (U)[facility] Community HospitalPeerlyst [employer] Other Color (U)yellowStrattanville [employer] Other Glucose Ql (U)NegativeStrattanville [employer] Other Hemoglobin Ql (U)[facility] [employer] Other Ketones Ql (U)NegativePeerlyst [employer] Other Leukocyte esterase Test strip Ql (U)moderateStrattanville [employer] Other Nitrite Ql (U)PositiveStrattanville [employer] Other pH (U)5 [pH][place] [employer] Other Protein Ql (U)NegativePeerlyst [employer] Other Specific gravity (U) [Rel density]1.010[place] [employer] Other Urobilinogen (U) [Mass/Vol]off [facility] [employer] Other Urinalysis - DIPSTICKPeerlyst [employer] Other Urinalysis - DIPSTICKon 43-06-4155Dxmjvvzthf (U)cloudy Ayasdi Other Bilirubin Ql (U)NegativePeerlyst [employer] Other Color (U)pale yellowPeerlyst [employer] Other Glucose Ql (U)[facility] [employer] Other Hemoglobin Ql (U)non hem-[facility] [employer] Other Ketones Ql (U)[facility] HealthcarePeerlyst [employer] Other Leukocyte esterase Test strip Ql (U)moderateStrattanville [employer] Other Nitrite Ql (U)[facility] StanlyPeerlyst [employer] Other pH (U)5 [pH]Ayasdi Other Protein Ql (U)FootnoteAdvanced Animal Diagnostics Other Specific gravity (U) [Rel density]1.005[place] [employer] Other Urobilinogen (U) [Mass/Vol]normalStrattanville [employer] Other Urinalysis - DIPSTICKPeerlyst [employer] Other CULTURE URINEon [id number] URINEIsolate 1 Escherichia coli >100,000 cfu/mL of ORGANISM 1 Escherichia coli ANTIBIOTIC M.I.C RX STATUS Ampicillin 4 S F Ampicillin/Sulbactam <=2 S F Piperacillin/Tazobactam <=4 S F Cefazolin <=4 S F Ceftazidime <=1 S F Ceftriaxone <=1 S F Ertapenem <=0.5 S F Imipenem <=0.25 S F Amikacin <=2 S F Gentamicin <=1 S F Tobramycin <=1 S F Ciprofloxacin <=0.25 S F Levofloxacin <=0.12 S F Nitrofurantoin <=16 S F Trimethoprim/Sulfamethoxazole <=20 S FNormalThe Peoples HospitalComment on above:Performed By: #### URCX #### [facility] [address] [address] [address] Florencio Escobar AMBER ADMITon [id number] [Catalytic activity/Vol]44 U/L Odtpys32-854Jet [facility] Health System East Campusment on above:Performed By: #### CMP, LIPA, CMADM #### [facility] [address] [address] [address] Florencio Hernandez.MB [Mass/Vol]ng/mLNormal<=3.60The Peoples HospitalComment on above:Performed By: #### CMP, LIPA, CMADM #### [facility] [address] [address] [address] Florencio NarayananHSTROP14.6 pg/mLNormal4.0-51.3The Peoples HospitalComment on above:Result Comment: CUT-OFF POINTS HAVE BEEN ESTABLISHED BASED ON THE FOURTH UNIVERSAL DEFINITIONS OF MYOCARDIAL INFARCTION. THE UPPER REFERENCE LIMIT (URL) OF TROPONIN, DEFINED THE 99TH PERCENTILE OF cTnI DISTRIBUTION IN A REFERENCE POPULATION, HAS BEEN CONFIRMED THE DECISION THRESHOLD FOR RI DIAGNOSIS.Performed By: #### CMP, LIPA, CMADM #### [facility] [address] [address] [address] Florencio CalderonO109 ng/mLCritically high9-82[facility] on above:Performed By: #### CMP, LIPA, CMADM #### [facility] [address] [address] [address] Florencio Farias AUTO DIFFon [id number] #0.1 103/ulNormal0.0-0.1The Peoples HospitalComment on above:Performed By: #### CBC #### [facility] [address] [address] [address] Florencio NarayananBasophils/100 WBC (Bld)0.4 %Normal0.2-2.0[facility] Comment on above:Performed By: #### CBC #### [facility] [address] [address] [address] Matias ChangEDeanne #0.0 103/ulNormal0.0-0.7The Peoples HospitalComment on above: Performed By: #### CBC #### [facility] [address] [place] [address] Dr. Florencio Floresosinophils/100 WBC (Bld)0.2 %Critically low0.9-7.0The Peoples HospitalComment on above:Performed By: #### CBC #### [facility] [address] [place] [address] Dr. Florencio Floresrythrocyte distribution width (RBC) [Ratio]12.3 %Mgqoru26.0-15.0 The Peoples HospitalComment on above:Performed By: #### CBC #### [facility] [address] [place] [address] Dr. Florencio NarayananHematocrit (Bld) [Volume fraction]38.4 %Ttvdqk23.0-48.0The Peoples HospitalComment on above:Performed By: #### CBC #### [facility] [address] [place] [address] Dr. Florencio NarayananHemoglobin (Bld) [Mass/Vol]12.7 g/gZOhahxw01.0-16.0The Peoples HospitalComment on above:Performed By: #### CBC #### [facility] [address] [place] [address] Dr. Florencio Wright #0.06 10e3/ulCritically high0.00-0.03[facility] Comment on above:Performed By: #### CBC #### [facility] [address] [place] [address] Dr. Florencio Wright %0.5 %Normal0.0-0.5The Peoples HospitalComment on above: Performed By: #### CBC #### [facility] [address] [place] [address] Dr. Florencio Merrill #1.0 103/ulCritically low1.2-3.8[facility] Comment on above:Performed By: #### CBC #### [facility] [address] [place] [address] Dr. Florencio Carbonehocytes/100 WBC (Bld)8.4 %Critically low20.5-60.0The Peoples HospitalComment on above:Performed By: #### CBC #### [facility] [address] [place] [address] Dr. Florencio Loomis DIFF REQNONormalThe Peoples HospitalComment on above: Performed By: #### CBC #### [facility] [address] [place] [address] Dr. Florencio Hatch (RBC) [Entitic mass]32.4 rsFfxanw50.7-34.0The Peoples HospitalComment on above:Performed By: #### CBC #### [facility] [address] [place] [address] Dr. Florencio Hatch (RBC) [Mass/Vol]33.1 g/zMHkuihq88.9-35.2The Peoples HospitalComment on above:Performed By: #### CBC #### [facility] [address] [place] [address] Dr. Florencio Chambers (RBC) [Entitic vol]98.0 zKJofadm52.0-99.0The Peoples HospitalComment on above:Performed By: #### CBC #### [facility] [address] [place] [address] Dr. Florencio Velásquez #1.6 103/ulCritically high0.3-0.8ThWood County Hospital Comment on above:Performed By: #### CBC #### [facility] [address] [place] [address] Dr. Florencio Hickeyocytes/100 WBC (Bld)13.1 %Critically high1.7-12.0[facility] HospitalComment on above:Performed By: #### CBC #### [facility] [address] [place] [address] Dr. Florencio Alvarez #9.5 103/ulCritically high1.4-6.5[facility] Comment on above:Performed By: #### CBC #### [facility] [address] [place] [address] Dr. Yilan ChangNeutrophils/100 WBC (Bld)77.4 %Critically high43.0-75.0The [facility] Campusment on above:Performed By: #### CBC #### [facility] [address] [address] [address] Florencio NarayananPlatelet mean volume (Bld) [Entitic vol]9.4 fLCritically low 9.5-13.5The Peoples HospitalComment on above:Performed By: #### CBC #### [facility] [address] [address] [address] Florencio NarayananPLT140 103/ulCritically xxs184-859Vbj [facility] on above:Performed By: #### CBC #### [facility] [address] [address] [address] Florencio NarayananRBC3.92 106/ulCritically low4.20-5.40[facility] on above:Performed By: #### CBC #### [facility] [address] [address] [address] Florencio NarayananWBC12.2 103/ulCritically high4.0-11.0[facility] on above:Performed By: #### CBC #### [facility] [address] [place] [address] Dr. Florencio NarayananCT STROKE HEAD WOon [id number] STROKE HEAD [facility] HEAD CT COMPARISON: None. CLINICAL HISTORY: Weakness. [...] Electronically authenticated by: LUANA VILLAFANA Date: 2022-06-09 12:24[facility] CenterCovid-19 PCR (CVDTBH)on 7092ZHZG-CoV-2 (COVID-19) RNA CHRISTOPHER+probe Ql (Unsp spec)Not detectedNormalNOT DETECTEDCommunity [facility] Hospital Comment on above:Result Comment: When diagnostic testing is negative, the [...] for this test is supported by the [place] of Health and Human Service's declaration that circumstances exist to justify the emergency use of in vitro diagnostics for the detection and/or diagnosis of the virus that causes COVID-19. This EUA will remain in effect for the duration of the COVID-19 declaration justifying emergency of IVDs, unless it is terminated or revoked by the FDA (after which the test may no longer be used).Performed By: #### CVDTB #### [facility] [address] [place] [address] Dr. Florencio Baeza URINE PROFILEon 41-46-4444Jfzfyfzrn Ql (U)NegativeNormal NEGATIVECommunity Memorial HospitalComment on above:Performed By: #### AME UMICRO #### [facility] [address] [place] [address] Dr. Florencio Suarez (U)CLEARNormalCLEARCommunity Memorial HospitalComment on above: Performed By: #### AME UMICRO #### [facility] [address] [place] [address] Dr. Florencio Blum (U)LT. YELLOWNormalYELLOWCommunity Memorial HospitalComment on above:Performed By: #### AME UMICRO #### [facility] [address] [place] [address] Dr. Florencio Agustin micrscopic examination will be performed if indicated. NormalCommunity Memorial HospitalComment on above:Performed By: #### AME UMICRO #### [facility] [address] [address] [address] Florencio NarayananGlucose Ql (U)NegativeNormalNEGATIVECommunity Memorial HospitalComment on above:Performed By: #### AME UMROSETTERO #### [facility] [address] [place] [address] Dr. Florencio NarayananHemoglobin Ql (U)LARGEAbnormalNEGATIVECommunity Memorial Hospital Comment on above:Performed By: #### AME UMICRO #### [facility] [address] [place] [address] Dr. Florencio NarayananKetones Ql (U)TRACEAbnormalNEGATIVECommunity Memorial HospitalComment on above:Performed By: #### AME UMROSETTERO #### [facility] [address] [place] [address] Dr. Florencio NarayananLEUKOCYTESLARGEAbnormalNEGATIVECommunity Memorial HospitalComment on above:Performed By: #### LIYAH MCCLOUDRO #### [facility] [address] [place] [address] Dr. Florencio NarayananNitrite Ql (U)PositiveAbnormalNEGHolzer Health System Comment on above:Performed By: #### LIYAH MCCLOUDRO #### [facility] [address] [place] [address] Dr. Florencio NarayananpH (U)5.5 [pH]Normal5-9Community Memorial HospitalComment on above: Performed By: #### AME UMICRO #### [facility] [address] [place] [address] Dr. Florencio NarayananSPEC GRAVITY1.200Dbsasc4.005-<=1.025The [facility]oples HospitalComment on above:Performed By: #### AME UMROSETTERO #### [facility] [address] [place] [address] Dr. Florencio NarayananUA PROTEINTRACENormalNEGATIVE/ TRACEThe Peoples HospitalComment on above:Performed By: #### LIYAH MCCLOUDRO #### [facility] [address] [place] [address] Dr. Florencio GUPTA INDINDICATEDNormalThe Peoples HospitalComment on above: Performed By: #### ADIEL MCCLOUD #### [facility] [address] [place] [address] Dr. Florencio Phelps Qn (U)0.2 {Zenia'U}/dLNormal0.2 - 1.0The [facility]oples HospitalComment on above:Performed By: #### ADIEL MCCLOUD #### [facility] [address] [place] [address] Dr. Florencio NarayananLIPASEon 13-31-7731Vqhqwr [Catalytic activity/Vol]68.0 U/L Critically low73.0-393.0The [facility]oples HospitalComment on above:Performed By: #### CMP, LIPA, CMADM #### [facility] [address] [place] [address] Dr. Florencio NarayananPROF 14(COMP METB)on 20-03-1159Ijxjlxm [Mass/Vol]2.5 g/dL Critically low3.4-5.0The Peoples HospitalComment on above:Performed By: #### CMP, LIPA, CMADM #### [facility] [address] [place] [address] Dr. Florencio NarayananAlbumin/Globulin [Mass ratio]0.6 {ratio}NormalThe Peoples HospitalComment on above:Performed By: #### CMP, LIPA, CMADM #### [facility] [address] [place] [address] Dr. Florencio Rebollar [Catalytic activity/Vol]150 U/LCritically xuyl84-888Ifm [facility] HospitalComment on above:Performed By: #### CMP, LIPA, CMADM #### [facility] [address] [place] [address] Dr. Florencio Treviño [Catalytic activity/Vol]27 U/WMxaofy84-67Xly [facility] HospitalComment on above:Performed By: #### CMP, LIPA, CMADM #### [facility] [address] [place] [address] Dr. Yilan ChangAnion gap [Moles/Vol]12.8 mmol/LNormalCommunity Memorial Hospital Comment on above:Performed By: #### CMP, LIPA, CMADM #### [facility] [address] [address] [address] Florencio NarayananAST [Catalytic activity/Vol]31 U/IPjwyyy49-02Uzt [facility] HospitalComment on above:Performed By: #### CMP, LIPA, CMADM #### [facility] [address] [address] [address] Florencio NarayananBilirubin [Mass/Vol]1.1 mg/dLCritically high0.2-1.0The Peoples HospitalComment on above:Performed By: #### CMP, LIPA, CMADM #### [facility] [address] [place] [address] Dr. Florencio NarayananCalcium [Mass/Vol]9.1 mg/dLNormal8.5-10.1[facility] Comment on above:Performed By: #### CMP, LIPA, CMADM #### [facility] [address] [address] [address] Florencio NarayananChloride [Moles/Vol]95 mmol/LCritically jas10-070Cjz [facility] HospitalComment on above:Performed By: #### CMP, LIPA, CMADM #### [facility] [address] [address] [address] Florencio NarayananCO2 [Moles/Vol]29.4 mmol/XFswsnf05.0-32.0The [facility] Comment on above:Performed By: #### CMP, LIPA, CMADM #### [facility] [address] [address] [address] Florencio NarayananCreatinine [Mass/Vol]1.34 mg/dLCritically high0.55-1.02The [facility]oples HospitalComment on above:Performed By: #### CMP, LIPA, CMADM #### [facility] [address] [address] [address] Matias ChangEGFR-AF CXVUNTBN16 mL/min/1.44r7Vyhxnpycsu low>=60The Peoples HospitalComment on above:Performed By: #### CMP, LIPA, CMADM #### [facility] [address] [address] [address] Florencio Casiano-NON AF PMYHMOWB55 mL/min/1.87s1Rswbmkgvyl low>=60The [facility]oples HospitalComment on above:Performed By: #### CMP, LIPA, CMADM #### [facility] [address] [address] [address] Florencio NarayananGlobulin (S) [Mass/Vol]4.3 g/dLNormalThe Peoples HospitalComment on above:Performed By: #### CMP, LIPA, CMADM #### [facility] [address] [place] [address] Dr. Florencio NarayananGlucose [Mass/Vol]118 mg/dLCritically onve08-134Rwf [facility] HospitalComment on above:Performed By: #### CMP, LIPA, CMADM #### [facility] [address] [address] [address] Florencio NarayananPotassium [Moles/Vol]3.2 mmol/LCritically low3.5-5.1The Peoples HospitalComment on above:Performed By: #### CMP, LIPA, CMADM #### [facility] [address] [place] [address] Dr. Florencio NarayananProtein [Mass/Vol]6.8 g/dLNormal6.4-8.2The [facility] Comment on above:Performed By: #### CMP, LIPA, CMADM #### [facility] [address] [place] [address] Dr. Florencio NarayananSodium [Moles/Vol]134 mmol/LCritically hsu286-568Bpk Pe[facility] HospitalComment on above:Performed By: #### CMP, LIPA, CMADM #### [facility] [address] [place] [address] Dr. Florencio NarayananUrea nitrogen [Mass/Vol]29.0 mg/dLCritically high7.0-18.0The [facility]oples HospitalComment on above:Performed By: #### CMP, LIPA, CMADM #### [facility] [address] [address] [address] Florencio NarayananUrea nitrogen/Creatinine [Mass ratio]21.6 mg/mgNoMercy Health St. [facility] on above:Performed By: #### CMP, LIPA, CMADM #### [facility] [address] [address] [address] Florencio Howard MICROSCOPIC ONLYon [id number]Z SEEN Community Memorial HospitalCommclaren flint on above:Performed By: #### ERUR, UMICRO #### [facility] [address] [address] [address] Florencio Hamilton identified Cx Nom (U)INDICATEDFairfield Medical CenterCommclaren flint on above:Performed By: #### ERUR, UMICRO #### [facility] [address] [address] [address] Florencio LaguerreNONE SEENNormalNONE SEENCommunity Memorial HospitalCommclaren flint on above:Performed By: #### ERUR, UMICRO #### [facility] [address] [address] [address] Florencio Cochran LM Nom (Urine sed)NONE SEENNormalNONE SEENCommunity Memorial HospitalCommclaren flint on above:Performed By: #### ERUR, UMICRO #### [facility] [address] [address] [address] Matias ChangEpithelial cells LM Ql (Urine sed)FEWAbnormalNONE SEEN /RAREThe Peoples HospitalCommclaren flint on above:Performed By: #### ERUR, UMICRO #### [facility] [address] [address] [address] Florencio MarkCOUSNONE SEENNormalNONE [facility] on above:Performed By: #### ERUR, UMICRO #### [facility] [address] [address] [address] Florencio NarayananZeapuGBW9-3Mcqkqfuc1-7Whc Peoples HospitalComment on above:Performed By: #### ADIEL MCCLOUD #### [facility] [address] [place] [address] Dr. Florencio NarayananYuhqlIMN56-23PsfkhwaiSMGNCorey HospitalComment on above: Performed By: #### ADIEL MCCLOUD #### [facility] [address] [place] [address] Dr. Florencio NarayananXR CHEST 2 Von 63-03-2221HO CHEST 2 VEXAM: XR CHEST 2 V HISTORY: Weakness and [...] Electronically authenticated by: JOAQUÍN ATKINS Date: 2022-06-09 12:24[facility] CenterCULTURE URINEon [id number] URINEIsolate 1 Escherichia coli >100,000 cfu/mL of ORGANISM 1 Escherichia coli ANTIBIOTIC M.I.C RX STATUS Ampicillin >=32 R F Ampicillin/Sulbactam 16 I F Piperacillin/Tazobactam <=4 S F Cefazolin <=4 S F Ceftazidime <=1 S F Ceftriaxone <=1 S F Ertapenem <=0.5 S F Imipenem <=0.25 S F Amikacin <=2 S F Gentamicin >=16 R F Tobramycin 4 S F Ciprofloxacin <=0.25 S F Levofloxacin <=0.12 S F Nitrofurantoin <=16 S F Trimethoprim/Sulfamethoxazole >=320 R FNormalCommunity Memorial HospitalComment on above:Performed By: #### CBC #### [facility] [address] [place] [address] Dr. Florencio NarayananMRI Hip w/o Righton 70-73-2788OOT Hip w/o RightHISTORY: Right groin pain. Right hip pain. COMPARISON: [...] and signed by Ramon Ambrocio on 09/11/2021 1545NormalNortbullhead community hospitaln [facility] SpecialistConsult Reporton 65-71-3055Zcxhpsg ReportSPREMIER HEALTH [facility] CONSULTATION BETTIE BURNS 3ET E303 [id number] OBSV ANABEL WATKINS MD [id number] REFERRING PHYSICIAN: CONSULTING PHYSICIAN: Renetta Almanzar MD DATE OF CONSULTATION: 03/11/2020 REASON: A near syncopal event in a 74-year-old female, with a history of atrial fibrillation, previous cardiac ablation, who was the time of evaluation noted to have a positive test for COVID. HISTORY OF PRESENT ILLNESS: Mrs. Burns is a very pleasant, alert and oriented -rnpo-vsp female who was brought into the emergency [...] quarantine. Many thanks. RENETTA ALMANZAR MD BD/MedQ /[id number] [facility] HospitalBASICMETAon 28-33-3137DKT AA>60[facility] HospitalComment on above:Result Comment: GFR Calc Medical judgement is necessary to interpret GFR. The calculated GFR may not accurately reflect renal status in patients >70 years, women, acutely ill hospitalized patients and patients with acute renal failure or known renal disease. The MDRD GFR formula is valid only for adults greaterthan 18 years of age. Note: Creatinine clearance (not GFR) should be used for drug dosing.Performed By: #### 988495, 592956, 723976 ####[facility] Cgtwthuy15764 [place] [address] Medical Director: Fahad Cast MDGFR/1.73 sq M predicted among non-blacks MDRD (S/P/Bld) [Vol rate/Area]56 mL/min/1.73m?[facility] HospitalComment on above: Result Comment: Non GFR Calc Medical judgement is necessary to interpret GFR. The calculated GFR may not accurately reflect renal status in patients >70 years, women, acutely ill hospitalized patients and patients with acute renal failure or known renal disease. The MDRD GFR formula is valid only for adults greaterthan 18 years of age. Note: Creatinine clearance (not GFR) should be used for drug dosing.Performed By: #### 701834, 047442, 155948 ####[facility] Ikurrfck60275 [place] [address] Medical Director: Fahad Cast MDOsmolality [Osmolality]291 mOsm/dmEuugzu510-684VvqaupghfSt. Mary'S Medical Center, Ironton CampusComment on above:Performed By: #### 116690, 900471, 578457 ####[facility] Napcdpje15141 [place] [address] Medical Director: Fahad Cast MDUrea nitrogen/Creatinine [Mass ratio]24.5 mg/mgNormalSSt. Rita's Hospital Comment on above:Performed By: #### 921820, 972306, 779228 ####[facility] [address] [place], [place] [phone] Director: PATTI Rodriguezalcium [Mass/Vol]9.3 mg/dLNormal 8.5-10.5SSt. Rita's HospitalComment on above:Performed By: #### 803446, 759092, 090100 ####[facility] [address] [place] [address] Medical Director: PATTI Rodriguezhloride [Moles/Vol]108 mmol/KUwhcmk972-016XzenrzcydSt. Mary'S Medical Center, Ironton CampusComment on above:Performed By: #### 175370, 648155, 747729 ####[facility] Yxjfarvt85704 [place] [address] Medical Director: PATTI RodriguezO2, gxydpp08.9 mmol/PIbtdlf55.0-32.0St[facility], Ironton CampusComment on above:Performed By: #### 541119, 574945, 285510 ####[facility] Trwnjona06772 [place] [address] Medical Director: PATTI Rodriguezreatinine [Mass/Vol]1.0 mg/dLNormal0.6-1.0St[facility] Ironton CampusComment on above:Performed By: #### 351018, 616927, 174632 ####[facility] Gjdllgqt18315 [place] [address] Medical Director: Fahad Cast MDGlucose [Mass/Vol]98 mg/jBMdltlv57-481CquqclaoqSt. Mary'S Medical Center, Ironton CampusComment on above:Result Comment: Venipuncture should occur prior to sulfasalazine administration due to the potential for falsely depressed results. Venipuncture should occur prior to sulfapyridine administration dueto the potential falsely elevated results. Baseline assay values before administration of sulfasalazine and sulfapyridine therapy would not beaffected.Performed By: #### 050859, 601155, 395801 ####[facility] Uoarwurn79890 [place], [place] [address]) [phone] Director: JOSE Rodriguezotassium [Moles/Vol] 4.2 mmol/LNormal3.5-5.1SSt. Rita's HospitalComment on above:Performed By: #### 335473, 656695, 871042 ####[facility] Tmuibacu73984 [place] [address] Medical Director: MARC Rodriguezodium [Moles/Vol]144 mmol/SGwsmgb098-321WmxrinhsnSt. Mary'S Medical Center, Ironton CampusComment on above:Performed By: #### 516223, 757779, 592949 ####[facility] Gwxyxldl23886 [place], [place] [address]) [phone] Director: Fahad Cast MDUrea nitrogen [Mass/Vol]24 mg/dL Lzsn32-67VxbchjordSt. Rita's HospitalComment on above:Performed By: #### 254467, 868207, 816128 ####[facility] Ciltoryi38526 [place] [address] Medical Director: PATTI RodriguezIrene 30-97-7511Ghhxocpefmh distribution width (RBC) [Ratio]14.4 %Gffbbq16.5-14.5SSt. Rita's HospitalComment on above:Performed By: #### 338312, 930374, 951687 #### [facility] [address] [place] [address] Burlapper: Fahad Cast MDHematocrit (Bld) [Volume fraction]33.9 % Low36.0-46.0St[facility], Ironton CampusComment on above:Performed By: #### 299766, 990910, 661307 #### [facility] [address] [place], [place] [address] Burlapper: Fahad Cast MDHemoglobin (Bld) [Mass/Vol]11.2 g/dLLow 12.0-16.0St. [facility], Ironton CampusComment on above:Performed By: #### 078639, 732011, 205942 #### [facility] [address] [place], [place] [address] Burlapper: MOHIT RodriguezCH (RBC) [Entitic mass]29.5 pgNormal 27.0-34.0St. [facility], Ironton CampusComment on above:Performed By: #### 063652, 998804, 790058 #### [facility] [address] [place], [place] [address] Burlapper: ANJU RodriguezC (RBC) [Mass/Vol]33.0 g/dLNormal 32.0-37.0St. [facility], Iront[facility] CampusComment on above:Performed By: #### 776298, 027655, 098966 #### [facility] [address] [place] [address] Burlapper: MOHIT RodriguezCV (RBC) [Entitic vol]89.5 fLNormal 80.0-100.0St. [facility], Ironton CampusComment on above:Performed By: #### 298789, 849978, 835500 #### [facility] [address] [place] [address] Burlapper: Moody Rodriguez mean volume (Bld) [Entitic vol] 6.8 fLLow7.4-10.4SSt. Rita's HospitalComment on above:Performed By: #### 648695, 758769, 266094 #### [facility] [address] [place] [address] Burlapper: Pa Rodriguez (Bld) [#/Vol]232 k6480Semzus 150-450St. [facility], Ironton CampusComment on above:Performed By: #### 187460, 540887, 459327 #### [facility] [address] [place] [address] Burlapper: CALLIE Rodriguez (Bld) [#/Vol]3.[address]35Bdv5.20-5.40 [address], Ironton CampusComment on above:Result Comment: Note: RBC morphology is normal unless otherwise stated. Evaluation performed only if differential is requested.Performed By: #### 184872, 904702, 799179 #### [facility] [address] [place] [address] Burlapper: MAMTA Rodriguez (Bld) [#/Vol]5.8 10*3/uLNormal St. [facility], Iront[facility] CampusComment on above:Performed By: #### 630926, 824841, 165167 #### [facility] [address] [place] [address] Burlapper: MAMTA Rodriguez (Bld) [#/Vol]5.[address]68Cgidlt6.5-11.0 [address], Iront[facility] CampusComment on above:Performed By: #### 634009, 053089, 881423 #### [facility] [address] [place] [address] Burlapper: BEVERLEY Rodriguez Dimer HSon 03-11-2020D Dimer HS821 ng/mL FEUHigh<=499St. [facility], Iront[facility] CampusComment on above:Result Comment: Exclusion of PE and DVT The D Dimer HS assay is reported in ng/ml Fibrinogen Equivalent Units (FEU). Per button sawyer?s instructions for use, a value less than 500ng/ml (FEU) may help to exclude DVT and /or PE in outpatients when the assay is used with a clinical pretest probability assessment. D-Dimer used for DIC Screens Assay results should be used with other information, including the clinical context in forming a diagnosis.Performed By: #### [id number] ####[facility] Noadgpdk00451 [place] [address] Medical Director: Fahad Cast MDLDHoskip 83-09-1584WDW713 unit/L Oxuyam72-023UsfizdrplSt. Mary'S Medical Center, Ironton CampusComment on above:Performed By: #### 345137, 162980, 548299 #### [facility] [address] 5[address] Burlapper: Tejal Rodriguez Note-Physicianon 03-11-2020 Progress Note-PhysicianPatient: BETTIE BURNS Age: 74 years Sex: Female : 1945 Associated Diagnoses: None Author: ANABEL WATKINS MD SUBJECTIVE: 74-year-old female with syncope and paroxysmal A. fib. Patient doing much better today.Patient is wishing to go home. Patient was [...] home medications. 6) DVT ppx: On Eliquis ormalSSt. Rita's HospitalUtilization Review Noteon 00-89-7851Nqlxmkrysxk Review NoteID Consult pending DISCHARGE WRITTEN AND PLANNED.NormalSt. Mary'S Medical Center, Ironton CampusAUTO DIFFon 03-77-2039Sumdibpnj (Bld) [#/Vol]0.05 b9904Dqxawd1.00-0.20SSt. Rita's HospitalComment on above:Performed By: #### 957047, 008739, 9887058 ####[facility] Gvzxtvan99796 [place] [address] Medical Director: Minnie Rodriguezsodustin %0.6 %Normal [address] [facility], Ironton CampusComment on above:Performed By: #### 934055, 595936, 4758553 ####[facility] Gnvwxpis87921 [place] [address] Medical Director: COTY Rodriguezos Count0.15 n2634Wqcqly8.00-0.50St. [facility], Ironton CampusComment on above:Performed By: #### 831059, 772190, 4648179 ####[facility] Lpoerxkr64076 [place] [phone] Director: COTY Rodriguezosinophils/100 WBC (Bld)1.8 %Normal [facility], Ironton CampusComment on above:Performed By: #### 607808, 243544, 1950334 ####[facility] [address] [place] [address] Medical Director: Pham Rodriguezhocytvioletta (Bld) [#/Vol]1.05 y3199Agt3.20-4.80[facility] Comment on above:Performed By: #### 006665, 706955, 8999989 ####[facility] Fsafybit97103 [place] [address] Medical Director: Pham Rodriguezhocytes/100 WBC (Bld)12.7 % [facility] HospitalComment on above:Performed By: #### 982583, 006681, 7674969 ####[facility] Klnwbbbn28536 [place] [address] Medical Director: MOHIT Rodriguezono Count0.70 g1106Hoevdr7.10-1.00St. [facility], Iront[facility] CampusComment on above:Performed By: #### 626512, 332693, 2479880 ####[facility] Unmrexfm41586 [place] [phone] Director: MOHIT Rodriguezonocytes/100 WBC (Bld)8.4 %Normal [facility], Iront[facility] CampusComment on above:Performed By: #### 459284, 624410, 1260836 ####[facility] Kyxqlwcs22086 [place] [address] Medical Director: Fahad Cast MDNeutrophils (Bld) [#/Vol]6.32 e1533Tyumlo7.40-8.80St. [facility] Iront[facility] CampusComment on above:Performed By: #### 968181, 012272, 4153070 ####[facility] Mprolpfz40731 [place] [address] Medical Director: Tripp Rodriguezutrophils/100 WBC (Bld)76.4 % [facility] HospitalComment on above:Performed By: #### 580774, 617295, 7535722 ####[facility] Tzioixul92644 [place] [address] Medical Director: Torsten Rodriguez 82-40-8297Wbpiraq [Mass/Vol]3.4 g/dLNormal3.4-5.0St. [facility] Iront[facility] CampusComment on above:Performed By: #### 254616, 404879, 5836306 ####[facility] Nlpwygbc35546 [place] [address] Medical Director: Sp Rodriguezbumin/Globulin [Mass ratio]0.8 {ratio}[facility] HospitalComment on above: Performed By: #### 989320, 393316, 5960831 ####[facility] Toianqjq06127 [place] [address] Medical Director: Trudi Rodriguez Phos71 unit/JWmzelc71-221LbysulgdsSt. Mary'S Medical Center, Ironton CampusComment on above:Performed By: #### 677516, 678604, 7699127 ####[facility] Mlgecffi29244 [place], [place] [address]40) [phone] Director: Fahad Cast MDBilirubin [Mass/Vol] 0.37 mg/dLNormal0.20-1.00St. [facility] Iront[facility] CampusComment on above:Result Comment: Use of this assay is not recommended for patients undergoing treatment with eltrombopag due to the potential for falsely elevated results.Performed By: #### 562623, 618259, 4550133 ####[facility] Bpqiinaj65517 [place], [place] [address]) [phone] Director: PATTI Rodriguezalcium [Mass/Vol]9.4 mg/dLNormal8.5-10.5SSt. Rita's HospitalComment on above:Performed By: #### 261048, 046425, 0825937 ####[facility] [address] [place] [address]) [phone] Director: PATTI Rodriguezhloride [Moles/Vol]108 mmol/L Hdypbw283-812IjfxmkfcdSt. Mary'S Medical Center, Ironton CampusComment on above:Performed By: #### 354794, 717738, 6104486 ####[facility] [address]fhbcjen[address] [place] [address]) [phone] Director: PATTI RodriguezO2, evjgho90.2 mmol/CZinihi44.0-32.0St[facility], Iront[facility] CampusComment on above:Performed By: #### 180705, 931068, 6392429 ####[facility] [address]jnufror[address] [place] [address] Medical Director: PATTI Rodriguezreatinine [Mass/Vol]1.2 mg/dL High0.6-1.0St[facility]ont[facility] CampusComment on above:Performed By: #### 239343, 879008, 5687136 ####[facility] Pbrztzby13553 [place] [address] Medical Director: NIDHI Rodriguez SF27JmunwfSnq[address] [place], [place] [address]Comment on above: Result Comment: GFR Calc Medical judgement is necessary to interpret GFR. The calculated GFR may not accurately reflect renal status in patients >70 years, women, acutely ill hospitalized patients and patients with acute renal failure or known renal disease. The MDRD GFR formula is valid only for adults greaterthan 18 years of age. Note: Creatinine clearance (not GFR) should be used for drug dosing.Performed By: #### 536231, 274075, 6035642 ####[facility] Uwfzszcs14273 [place] [address] Medical Director: Fahad Cast MDGFR/1.73 sq M predicted among non-blacks MDRD (S/P/Bld) [Vol rate/Area]44 mL/min/1.73m?[facility] HospitalComment on above: Result Comment: Non GFR Calc Medical judgement is necessary to interpret GFR. The calculated GFR may not accurately reflect renal status in patients >70 years, women, acutely ill hospitalized patients and patients with acute renal failure or known renal disease. The MDRD GFR formula is valid only for adults greaterthan 18 years of age. Note: Creatinine clearance (not GFR) should be used for drug dosing.Performed By: #### 452473, 714372, 4472747 ####[facility] Amdhostg45404 [place] [address] Medical Director: Fahad Cast MDGlobulin (S) [Mass/Vol]4.0 g/dLOhioHealth Hardin Memorial HospitalComment on above:Performed By: #### 465492, 624930, 2220468 ####[facility] Mooxnulp03928 [place] [address] Medical Director: Fahad Cast MDGlucose [Mass/Vol]143 mg/dLHigh 72-100St[facility] CampusComment on above:Result Comment: Venipuncture should occur prior to sulfasalazine administration due to the potential for falsely depressed results. Venipuncture should occur prior to sulfapyridine administration dueto the potential falsely elevated results. Baseline assay values before administration of sulfasalazine and sulfapyridine therapy would not beaffected.Performed By: #### 128420, 936536, 8695214 ####[facility] Rwmeguju97458 [place] [address] Medical Director: Fahad Cast MDGOT18 unit/LNormal 15-37St[facility] CampusComment on above:Result Comment: Venipuncture should occur prior to sulfasalazine and/or sulfapyridine administration due to the potential for falsely depressed results. Baseline assay values before administration of sulfasalazine and sulfapyridine therapy would not beaffected.Performed By: #### 416541, 892322, 4100119 ####[facility] [address]fej[address] [address] Medical Director: Fahad Cast MDGPT19 unit/LNormal 13-56St[facility] CampusComment on above:Result Comment: Venipuncture should occur prior to sulfasalazine and/or sulfapyridine administration due to the potential for falsely depressed results. Baseline assay values before administration of sulfasalazine and sulfapyridine therapy would not beaffected.Performed By: #### 048745, 726567, 2246922 ####[facility] Ayximxjm16610 [place] [address] Medical Director: Fahad Cast MDOsmolality [Osmolality]293 mOsm/pnPkvzua626-918OxpgkmxwxSt. Mary'S [facility] Center, Iront[facility] CampusComment on above:Performed By: #### 420376, 709798, 1874328 ####[facility] Zcwossdn21189 [place] [phone] Director: JOSE Rodriguezotassium [Moles/Vol]4.0 mmol/LNormal 3.5-5.1SSt. Rita's HospitalComment on above:Performed By: #### 264656, 896041, 3296199 ####[facility] Wkfsykvf24196 [place] [address] Medical Director: JOSE Rodriguezrotein [Mass/Vol]7.4 g/dLNormal6.0-8.5SSt. Rita's HospitalComment on above:Performed By: #### 527709, 448627, 8524957 ####[facility] Ennhzgbt95530 [place] [address] Medical Director: MARC Rodriguezodium [Moles/Vol]142 mmol/L Ykpbnl033-296CoydszydjSt. Mary'S Medical Center, Ironton CampusComment on above:Performed By: #### 913580, 450193, 3073983 ####[facility] [address] [place] [address] [facility] Director: Fahad Cast MDUrea nitrogen [Mass/Vol]32 mg/hTGinx99-22XohwmpavoSt. Rita's HospitalComment on above:Performed By: #### 252820, 102288, 2252345 ####[facility] [address]usmu[address] [place] [address] [facility] Director: Fahad Cast MDUrea nitrogen/Creatinine [Mass ratio]26.7 mg/mgNormalSSt. Rita's HospitalComment on above:Performed By: #### 812085, 745141, 7632494 ####[facility] [address] [place] [address] Medical Director: Fahad Cast MDCOVID-19 by PCR Darling 22-70-5950YRZKX-19 by PCR SWEDPositive AbnormalSt. Mary'S Medical Center, Ironton CampusComment on above:Result Comment: CALL BARRY SEPULVEDA PRATIK 03/10/2020 18:23:22 EST BY [facility]; RBRPerformed By: #### [id number] ####[facility] [address]ryrkigl[address] [place] [address] Medical Director: Fahad Cast, [facility]RP QUANTon 03-10-2020 C-Reactive Protein, Quantitative0.8 mg/dLHigh0.0-0.3SSt. Rita's HospitalComment on above:Performed By: #### 765740, [id number], [id number], [id number] #### [facility] [address] [place], [place] [address] Burlapper: Fahad Cast, MDCT ABD PELVIS W IV CONTRASTon 03-10-2020 CT ABD PELVIS W IV CONTRASTEXAMINATION: CT of the abdomen and pelvis with IV contrast INDICATION: Diarrhea and abdominal cramping. COMPARISON: None. TECHNIQUE: Axial CT scan of the abdomen and pelvis was obtained after the uneventful administrationof 90 mL of Isovue-300 intravenous contrast. Coronal [...] by: Oni Liu MD 03/10/2020 3:50 PM LITIGATION COUNSEL Technologist: LIEN BLANCA Dictated By: ONI LIU MD Signed By: ONI LIU MD Signed Out: 03/10/20 16:50:49NormalSSt. Rita's HospitalD Dimer HSon 03-10-2020D Dimer HS264 ng/mL FEUNormal<=499[facility] Comment on above:Result Comment: Exclusion of PE and DVT The D Dimer HS assay is reported in ng/ml Fibrinogen Equivalent Units (FEU). Per button sawyer?s instructions for use, a value less than 500ng/ml (FEU) may help to exclude DVT and /or PE in outpatients when the assay is used with a clinical pretest probability assessment. D-Dimer used for DIC Screens Assay results should be used with other information, including the clinical context in forming a diagnosis.Performed By: #### 810819, [id number], [id number], [id number] #### [facility] [address] [place] [address] Burlapper: NARENDRA Rodriguez Physician Reporton [id number] Physician ReportPatient: BETTIE BURNS Age: 74 years Sex: Female [...] Line Saline Flush: 3 mL, IV Push, [id number] Documented Medications Documented Eliquis 5 mg oral [...] Interp, Sinus rhythm with first-degree AV block, RI interval 256, QT/QTc/433, incomplete right bundle branch [...] /100WBC NA Lymph % 12.7 % NA Ponce % 8.4 % NA Neutrophil % 76.4 % NA Eosin % 1.8 % NA Basos % 0.6 % NA Lymph Count 1.05 x1000 LOW Ponce Count 0.70 x1000 NORMAL Neutrophil Count (ANC) [...] by: Monae Hernandez MD 03/10/2020 1:58 PM LITIGATION COUNSEL Signed By: MONAE HERNANDEZ MD CT ABD PELVIS W CONTRAST 03/10/20 14:45:00 EXAMINATION: CT of the abdomen and pelvis with IV contrast INDICATION: Diarrhea and abdominal cramping. COMPARISON: None. TECHNIQUE: Axial CT scan of the abdomen and pelvis was obtained after the uneventful administrationof 90 mL of Isovue-300 intravenous contrast. Coronal [...] by: Oni Liu MD 03/10/2020 3:50 PM LITIGATION COUNSEL Signed By: ONI LIU MD . Notes: [...] Course: improving. Impression and Plan Diagnosis Syncope (BAN50-NI R55, Working, Medical) Plan Condition: Stable. Disposition: [...] the documentation which was dictated to the scribein my presence, and it accurately records my words and actions.. NoPremier Health CenterED Pre-Arrival Formon [id number] Pre-Arrival FormPre-Arrival Summary Name: STR, Current Date: 03/10/2020 13:52:19 EST Gender: Date of : Age: Pre-Arrival Type: EMS ETA: 03/10/2020 14:15:00 EST Primary Care Physician: Presenting Problem: Pre-Arrival User: Neil Vázquez RN Referring Source: Location: [address] [place] [address] Emergency Department [address] [place] [address] Notes: Vital Signs: Doctor Call Back: DNR Status: Miscellaneous Issues:[facility] Progress Noteon 30-28-9899CL Progress Notereport not put in by previous rn pt here for syncopal episode after diarrhea episode pt has hx of afib. pt covid+ report called to neil silva will come get ptNoTrumbull Memorial HospitalFERRITINon 03-10-2020 Ferritin [Mass/Vol]32 ng/mLNormal8-252St. [facility] Ironton CampusComment on above:Performed By: #### [id number], [id number], CD:[id number], [id number] #### [facility] General Laboratory Services [address] [place] [address] Burlapper: Ronny Rodriguez 70-40-1922RNAU?NoNormalSt. Mary'S Medical Center, Ironton CampusComment on above:Performed By: #### 690586, 211666, [id number] ####[facility] General Laboratory Oxdpwrob19425 [place] [address] Medical Director: Fahad Segun, MDErythrocyte distribution width (RBC) [Ratio]14.5 %Wdjqfa72.5-14.5SSt. Rita's HospitalComment on above:Performed By: #### 027542, 486993, 8718279 ####[facility] Rlktnhsq17267 [place], [place] [phone]) [phone] Director: Fahad Cast MDHematocrit (Bld) [Volume fraction]35.8 %Low36.0-46.0St[facility] Ironton CampusComment on above: Performed By: #### 010308, 947623, 5318456 ####[facility] [address]qu[address] [place] [address] [id number]) [phone] Director: Fahad Cast MDHemoglobin (Bld) [Mass/Vol]11.7 g/dLLow12.0-16.0 [facility] Ironton CampusComment on above:Performed By: #### 625435, 731372, [id number] ####[facility] [address] [place] [address] [id number]) [phone] Director: MOHIT RodriguezCH (RBC) [Entitic mass]29.4 shCimdue27.0-34.0[facility] Comment on above:Performed By: #### 162203, 325425, 1478320 ####[facility] V[address] [place] [address] [id number]) [phone] Director: ANJU RodriguezC (RBC) [Mass/Vol]32.7 g/dL Gwhktn33.0-37.0[facility] Ironton CampusComment on above:Performed By: #### 394300, 976208, 1900642 ####[facility] Wpjtydnb13896 [place], [place] [id number]) [phone] Director: MOHIT RodriguezCV (RBC) [Entitic vol]89.8 nSEhuhxb16.0-100.0St[facility] Ironton CampusComment on above:Performed By: #### 159393, 207954, 7731571 ####[facility] Lzwklaeo76109 [place] [address] Medical Director: TRAV Rodriguezucleated RBC (Bld) [#/Vol]0 /100WBCNormalSSt. Rita's HospitalComment on above:Performed By: #### 425144, 303780, 8022251 ####[facility] Egkkjbvr22917 [place] [address] Medical Director: Moody Rodriguez mean volume (Bld) [Entitic vol]6.7 fLLow7.4-10.4SSt. Rita's HospitalComment on above:Performed By: #### 869526, 590988, 7621605 ####[facility] Wwklppfh68087 [place] [address] Medical Director: Pa Rodriguez (Bld) [#/Vol]252 w5901Aqcquj781-456MxwvditjgSt. Mary'S Medical Center, Ironton CampusComment on above: Performed By: #### 603787, 777609, 2076929 ####[facility] Cublihwa88357 [place] [address] Medical Director: BELKYS RodriguezBC (Bld) [#/Vol]3.99 l06Vfn7.20-5.40SSt. Rita's HospitalComment on above:Result Comment: Note: RBC morphology is normal unless otherwise stated. Evaluation performed only if differential is requested.Performed By: #### 495953, 780367, 9143729 ####[facility] Ntmxnxza08327 [place] [phone] Director: TEODORO RodriguezBC (Bld) [#/Vol]8.3 10*3/uLNormal St. [facility], Iront[facility] CampusComment on above:Performed By: #### 832201, 585316, 1665634 ####[facility] Ascguedr28676 [place] [address] Medical Director: TEODORO RodriguezBC (Bld) [#/Vol]8.3 q48Bosrpl5.5-11.0St[facility], [facility] CampusComment on above:Performed By: #### 135556, 658608, 6543228 ####[facility] Vciwgepa67014 [place] [phone] Director: Fahad Cast MDHistory and Physicalon 03-10-2020 History and PhysicalPatient: BETTIE BURNS Age: 74 years Sex: Female : 1945 Associated Diagnoses: None Author: EMILY ARROYO DO Basic Information Source of history: Self. Chief Complaint Syncope History of Present Illness This is a 74 year old female with a past medical history of atrial fibrillation on Eliquis, historyof HTN who presents to the ED status post syncopal event. Patient was out at a restaurant when she became diaphoretic and dizzy. She states she also felt very warm. She had some abdominal cramping aswell. She went to the restroom at the [...] of pneumonia in lower lung solo. She wastested for COVID PCR and is positive. She [...] Last Charted Temp Oral 36.4 degC (MAR 10:05) Heart Rate Peripheral 69 bpm (MAR 10 [...] 6) DVT ppx: On Eliquis OT MESA onOhioHealth Hardin Memorial HospitalLACTATEon 93-90-9154Cqwxzlh [Moles/Vol] 1.8 mmol/LNormal0.4-2.0St. [facility], [facility] CampusComment on above:Performed By: #### 680484 #### [facility] Services [address] [place] [id number] Burlapper: Kaylie Rodriguez 34-41-1076Emdtiw [Catalytic activity/Vol]135 unit/BUydzxo73-646PuixnfwenSt. Mary'S Medical Center, Ironton CampusComment on above:Performed By: #### 450232, 975231, 090409 ####[facility] Jkrvaqwl51395 [place] [address] Medical Director: KENNY Rodriguez LEVELon 25-79-6577Omkyomxjp [Mass/Vol]1.9 mg/dLNormal1.6-2.6St. [facility], Ir[facility] CampusComment on above:Performed By: #### 359301, 594876, 010434 ####[facility] Iqviksso94486 [place] [address] Medical Director: Brigid Rodriguez 62-33-0930Opbodabpflhwa<0.05NoTrumbull Memorial HospitalComment on above:Result Comment: INTERP DATA Less than or = 0.5 ng/mL Systemic infection (sepsis) is not likely. Local bacterial infection is possible. If PCT is measured very early after a bacterial challenge (usually less than 6 hours), these values may still be low.In this case, PCT should be re-assessed 6-24 hrs later. Greater than 0.5 - less than 2.0 ng/mL Systemic infection (sepsis) is possible, but other conditions are known to elevate PCT as well. Thepatient should be closely monitored both clinically and [...] High likelihood of severe sepsis or septic shock.Performed By: #### 315291, [id number], CD:[id number], [id number] #### [facility] Services [address] [place] [address] Burlapper: Angeline Rodriguez 37-13-5578Gzgyjtpd I.cardiac [Mass/Vol]ng/mLNormal0.000-0.099St[facility] CampusComment on above: Result Comment: This test is a quantitative determination of cardiac troponin I. High levels of serum biotin may interfere with this test.Performed By: #### 494389, 622122, 444258 ####[facility] Gkekzfvr93662 [place] [address] Medical Director: FRIDA Rodriguez CHEST PORTABLEon 51-10-8447QR CHEST PORTABLEEXAM DESCRIPTION: XR CHEST PORTABLE CLINICAL HISTORY: 74 years Female . Syncope. Atrial fibrillation. COMPARISON: None TECHNIQUE: Upright portable chest x-ray FINDINGS: Borderline heart size. No suspicious mediastinal widening. Left mediastinal calcifications. Surgical clips in the left axilla presumably related to left breast surgery. No obvious acute lung pleural bone abnormalities. Electronically signed by: Monae Hernandez MD 03/10/2020 1:58 PM LITIGATION COUNSEL Technologist: TS,THANG Dictated By: MONAE HERNANDEZ MD Signed By: MONAE HERNANDEZ MD Signed Out: 03/10/20 14:58:26[facility] Vital Signs Date TimeVital SignValuePerforming PhzlpmnvuCpcaovdh57-93-2222 14:32-0400Body onhqnc662.1 cmRlucian Houstno MD Work Phone: [phone] [address]10-23-2025 14:32-0400Body mass index (BMI) [Ratio]29.29 kg/z1GxcizJocelynn [place] MD Work Phone: [phone])24911 [address]10-23-2025 14:32-0400Body .83 kgJocelynn [place] MD Work Phone: [phone] [address]10-23-2025 14:32-0400Diastolic blood ngaxibie18 mm[Hg]Jocelynn [place] MD Work Phone: [phone] [address]10-23-2025 14:32-0400Heart rate 58 /minJocelynn [place] MD Work Phone: 1(455)382-[address] [place], [place] 7707110-23-2025 14:32-1807KoB5% (BldA) [Mass fraction]97 %Jocelynn [place] MD Work Phone: 1(568)048-[address] [place], [place] 7707110-23-2025 14:32-0400Systolic blood tevxlqwc407 mm[Hg]Jocelynn [place] MD Work Phone: [phone] [address]10-03-2025 08:21-0400Body .1 cmElliot Starks MD Work Phone: [facility]10-03-2025 08:21-0400 Body mass index (BMI) [Ratio]28.4 kg/n5YhmlfeElliot Starks MD Work Phone: [facility]10-03-2025 08:21-0400 Body .56 kgElliot Starks MD Work Phone: [facility]10-03-2025 08:21-0400 Diastolic blood kaudxrdm08 mm[Hg]Elliot Starks MD Work Phone: [phone]10-03-2025 08:21-0400 Heart rate61 /Belle Starks MD Work Phone: [phone])[address]10-03-2025 08:21-0400 Systolic blood heyusjpq474 mm[Hg]Elliot Starks MD Work Phone: [phone])[address]08-28-2025 10:27-0400 Body kkronv318.1 cmElliot Starks MD Work Phone: [phone])[address]162 [address]08-28-2025 10:27-0400 Body mass index (BMI) [Ratio]29.1 kg/u2DpojllElliot Starks MD Work Phone: 1(833)[address] [place], [place] 3546608-28-2025 10:27-0400 Body weaexj59.4 kgElliot Starks MD Work Phone: [phone])[address] [place], [place] 3546608-28-2025 10:27-0400 Diastolic blood uafbpkcj79 mm[Hg]Elliot Starks MD Work Phone: [phone])[address]08-28-2025 10:27-0400 Heart rate52 /Belle Starks MD Work Phone: 1(299)65562 [address]08-28-2025 10:27-0400 Systolic blood vmxumlyz512 mm[Hg]Elliot Starks MD Work Phone: [phone])19762 [address]2025 08:34-0400 Body lvbhyl312.1 cmEagnieszkarochelle Mart SUPERVISING FILM OR VIDEOTAPE EDITOR-ENROLLMENT MANAGEMENT DIRECTOR Work Phone: [facility]2025 08:34-0400Body mass index (BMI) [Ratio]29.62 kg/m2SmxeeRadha Mart SUPERVISING FILM OR VIDEOTAPE EDITOR-ENROLLMENT MANAGEMENT DIRECTOR Work Phone: [facility]2025 08:34-0400Body jiyplw15.74 kgRadha Mart SUPERVISING FILM OR VIDEOTAPE EDITOR-ENROLLMENT MANAGEMENT DIRECTOR Work Phone: [facility]2025 08:34-0400Diastolic blood juvtqlor67 mm[Hg]Radha Barron SUPERVISING FILM OR VIDEOTAPE EDITOR-ENROLLMENT MANAGEMENT DIRECTOR Work Phone: [facility] Zhatti91-76-1069 08:34-0400Heart rate 55 /minEurbano Mart APRN-ENROLLMENT MANAGEMENT DIRECTOR Work Phone: [facility] Fkecep10-07-6307 08:34-3574HmI9% (BldA) [Mass fraction]96 %Radha HANEY Work Phone: [facility] Irszxp04-09-3632 08:34-0400Systolic blood wvundpuu333 mm[Hg]Radha HUNGENROLLMENT MANAGEMENT DIRECTOR Work Phone: [facility] Hdvjgv87-56-3059 13:15-0400Body zqpcet544.1 cmCbaudilio Barrera APRN-ENROLLMENT MANAGEMENT DIRECTOR Work Phone: [facility]03-13-2025 13:15-0400Body mass index (BMI) [Ratio]27.96 kg/m2Matheus Barrera APRN-ENROLLMENT MANAGEMENT DIRECTOR Work Phone: [address] [place], [place] [address]2703-13-2025 13:15-0400Body weight 76.2 kgMatheus Barrera APRN-ENROLLMENT MANAGEMENT DIRECTOR Work Phone: [address] [place], [place] 0802702-19-2025 12:54-0500Blood Pressure LocationLalemuel Jacqui [facility]02-19-2025 12:54-0500Diastolic blood xyaoukrp34 mm[Hg]Maria E Osman [facility]02-19-2025 12:54-0500Heart rate56 /minMaria E Osman [facility]02-19-2025 12:54-0500Respiratory rate18 /minMaria E Osman [facility]02-19-2025 12:54-0500Systolic blood snyltykb248 mm[Hg]Maria E Osman [facility]01-06-2025 09:17-0500Body akercx921.1 cm[facility]01-06-2025 09:17-0500Body mass index (BMI) [Ratio]29.1 kg/v8NkypqijprK[facility]01-06-2025 09:17-0500Body bffafh12.37 kgK[facility]01-06-2025 09:17-0500Diastolic blood apmsrwtc39 mm[Hg] [facility]01-06-2025 09:17-0500Heart rate58 /[facility]01-06-2025 09:17-0500Systolic blood optahslj696 mm[Hg] [facility]12-28-2024 10:29-0500Body cvenvu780.1 cm [facility]12-28-2024 10:29-0500Body mass index (BMI) [Ratio]29.1 kg/g1TfvfnxxffKettering Health [facility] Campus12-28-2024 10:29-0500Body .2 [degF][facility]12-28-2024 10:29-0500Body tihzra13.43 kgK[facility]12-28-2024 10:29-0500Diastolic blood jmddbusp01 mm[Hg][facility]12-28-2024 10:29-0500 Heart rate58 /[facility]12-28-2024 10:29-0500 Respiratory rate16 /[facility]12-28-2024 10:29-0500 SaO2% (BldA) [Mass fraction]94 %[facility]12-28-2024 10:29-0500Systolic blood fcoutmdd993 mm[Hg][facility] 02-01-2024 11:13-0400Body lfavjn889.1 cmK[facility] 02-01-2024 11:13-0400Body mass index (BMI) [Ratio]28.3 kg/g0IhpnbrgitKettering Health [facility] Campus09-30-2024 11:13-0400Body .11 kgK[facility]09-30-2024 11:13-0400Diastolic blood tmvgedov49 mm[Hg][facility]09-30-2024 11:130400Heart rate60 /minK[facility]tering Health [facility] Campus09-30-2024 11:13-0400Systolic blood awcpyrsx781 mm[Hg][facility]07-25-2024 14:08-0400Body mqistg015.1 Sonia Ohara MD Work Phone: [address] [place], [place] [address]07-25-2024 14:08-0400Body mass index (BMI) [Ratio]27.96 kg/e3XqymsYesi Ohara MD Work Phone: [address] [place], [place] [address]07-25-2024 14:08-0400Body wozexwtflif26 [degF]Yesi Ohara MD Work Phone: [address] [place], [place] [address]07-25-2024 14:08-0400Body weight 76.2 kgYesi Ohara MD Work Phone: [address] [place], [place] [address]07-25-2024 09:56-0400Body height 165.1 cmMainor Post MD Work Phone: [facility]07-25-2024 09:56-0400Body mass index (BMI) [Ratio]28.12 kg/o2TenfubfigMainor Post MD Work Phone: [facility]07-25-2024 09:56-0400Body ubwpgk77.66 kgMainor Post MD Work Phone: [facility]07-25-2024 09:56-0400Diastolic blood qmhbfgyc55 mm[Hg]Mainor Post MD Work Phone: [facility]07-25-2024 09:56-0400Heart rate 56 /minMainor Post MD Work Phone: [facility]07-25-2024 09:56-0400Systolic blood mrvnnlie441 mm[Hg]Mainor Post MD Work Phone: [facility]06-26-2024 08:41-0400Body .1 cmK[facility]06-26-2024 08:41-0400Body mass index (BMI) [Ratio]27.9 kg/d0QyrodxfdcKettering Health [facility] Campus06-26-2024 08:41-0400Body ddyyvc05.2 kgK[facility]06-26-2024 08:41-0400Diastolic blood wojkdfic16 mm[Hg][facility] 10-28-2023 08:41-0400Heart rate58 /minK[facility]tering [facility] 10-28-2023 08:41-0400Systolic blood yarnlfol900 mm[Hg][facility]04-18-2024 14:38-0400Body jdhiuf265.1 cmSmally [employer] Work Phone: [address] [place], [place] [address]2704-18-2024 14:38-0400Body mass index (BMI) [Ratio]27.96 kg/a1Kbpoktqw [employer] Work Phone: [address] [place], [place] [address]802704-18-2024 14:38-0400Body weight 76.2 kgSabharat [employer] Work Phone: [address] [place], [place] [address]03-21-2024 14:45-0400Body height 165.1 cmSilirElegant Servicedesiree [employer] Work Phone: [facility]03-21-2024 14:45-0400Body mass index (BMI) [Ratio]27.96 kg/r6Dxwzlrhq PeachcShippo Work Phone: 1(261)211-[address] [place], [place] 1784503-21-2024 14:45-0400Body weight 76.2 kgSadunacndesiree [employer] Work Phone: [address] [place], [place] [address]802703-06-2024 15:34-0500Body ksmkgevckgx70.9 [degF]Yesi Ohara MD Work Phone: [facility]03-06-2024 15:34-0500Diastolic blood mm[Hg]Yesi Ohara MD Work Phone: 1(459)104-[address] [place], [place] 1784503-06-2024 15:34-0500Heart rate80 /Jessica Ohara MD Work Phone: 9(761)513-[address] [place], [place] 1784503-06-2024 15:34-0500Respiratory rate16 /Jessica Ohara MD Work Phone: 2(091)490-[address] [place], [place] 1784503-06-2024 15:34-0476OfN0% (BldA) [Mass fraction]98 %Yesi Ohara MD Work Phone: 1(083)255-[address] [place], [place] 1784503-06-2024 15:34-0500Systolic blood ojodgnia365 mm[Hg]Yesi Ohara MD Work Phone: 1(255)[address]03-05-2024 16:39-0500Body height 165.1 Sonia Ohara MD Work Phone: 1([phone])[address]03-05-2024 16:39-0500Body mass index (BMI) [Ratio]28.02 kg/l5MjajoYesi Ohara MD Work Phone: [phone])21505 [address]03-05-2024 16:39-0500Body weight 76.39 kgYesi Ohara MD Work Phone: 6(615)843-[address] [place], [place] 1784502-15-2024 14:31-0500Body height 165.1 Sonia Ohara MD Work Phone: 7(828)578-[address] [place], [place] 1784502-15-2024 14:31-0500Body mass index (BMI) [Ratio]28.12 kg/x5GirssYesi Ohara MD Work Phone: 1(218)338-[address] [place], [place] 1784502-15-2024 14:31-0500Body weight 76.66 kgYesi Ohara MD Work Phone: 1(106)[address]01-30-2024 11:19-0500Body height 165.1 Vidal Diaz MD Work Phone: [facility]01-30-2024 11:19-0500Body mass index (BMI) [Ratio]28.12 kg/g5GprrsdMundo Diaz MD Work Phone: [facility] CenterMediS[facility]01-30-2024 11:19-0500Body esmokp21.66 kgMundo Diaz MD Work Phone: 1([phone])839-[address] [place], [place] [address]01-30-2024 11:19-0500Diastolic blood drysuhjp28 mm[Hg]Mundo Diaz MD Work Phone: 1(078)451-[address] [place], [place] [address]01-30-2024 11:19-0500Heart rate 62 /minMundo Diaz MD Work Phone: 1(943)891-[address] [place], [place] [address]01-30-2024 11:19-3401AfM0% (BldA) [Mass fraction]99 %Mundo Diaz MD Work Phone: 1(282)381-[address] [place], [place] [address]01-30-2024 11:19-0500Systolic blood ouoqkzti951 mm[Hg]Mundo Diaz MD Work Phone: 1(948)840-[address] [place], [place] [address]01-11-2024 09:38-0500Body dhsjse097.1 Sonia Ohara MD Work Phone: 1(606)606-[address] [place] [address] [employer] TechnologiesFdofmj28-66-7294 09:38-0500Body mass index (BMI) [Ratio]29.12 kg/c8NxbsvYesi Ohara MD Work Phone: 1(355)940-[address] [place] [address] [employer]bank[employer] TechnologiesFsptlz13-83-2646 09:38-0500Body agronzvnlou02.2 [degF]Yesi Ohara MD Work Phone: 1(442)068-[address] [place], [place] [address]01-11-2024 09:38-0500Body weight 79.38 kgYesi Ohara MD Work Phone: 1(727)770-[address] [place] [address] [employer] TechnologiesFrmpnt52-91-6706 14:45-0400Body height 165.1 cmElliot Starks Other [employer] Other 06-29-2023 14:45-0400Body mass index (BMI) [Ratio]28.4 kg/b6AfeiqmElliot Starks Other [employer] Other 06-29-2023 14:45-0400Body nihxty61.43 kgElliot Maria Luisa Other [employer] Other 06-29-2023 14:45-0400Diastolic blood hwdxiopw33 mm[Hg] Elliot Starks Other [employer] Other 06-29-2023 14:45-0400Systolic blood wawaeoim558 mm[Hg] Elliot Starks Other [employer] Other 02-01-2023 11:30-0500Body audhud915.1 cmEsmedesiree Starks Other [employer] Other 02-01-2023 11:30-0500Body mass index (BMI) [Ratio] 28.29 kg/o1Hcynmn Braun Other [employer] Other 02-01-2023 11:30-0500Body .11 kgEsmedesiree Starks Other [employer] Other 02-01-2023 11:30-0500Diastolic blood pvrcbmev18 mm[Hg] Elliot Starks Other [employer] Other 02-01-2023 11:30-7470XaW9% (BldA) [Mass fraction]99 % Elliot Starks Other [employer] Other 02-01-2023 11:30-0500Systolic blood pipddahn451 mm[Hg] Elliot Starks Other [employer] Other Encounters Encounter DateEncounter TypeCare ProviderFacilityStart: 03-06-2025 End: 11-42-4391Kfeojkoih encounterSonya [facility] Comment on above:Event Monitor AlertStart: 02-23-2025 End: 65-81-0207ertbyfimjyZzvvvn E BraunFacility:[facility] HospitalStart: 02-23-2025 End: 30-13-2665Xjjksm outpatient visit 25 minutesJocelynn [place] MD Work Phone: [facility] Phys[facility] CardiologyComment on above:SOB (shortness of breath) (Primary Dx); Syncope, unspecified syncope type; Bradycardia; Paroxysmal atrial fibrillation ([facility])Start: 02-23-2025 End: 25-27-4999ejsdlctvdpZANMQ B [facility] Ambulatory PPGStart: 02-23-2025 End: 71-15-1306dszyvpialfBcraky TannaFacility:FTMCStart: 02-23-2025 End: 33-68-2614Szukmgi encounter procedureMaria E Osman [facility] start: 02-22-2025 End: 54-39-3274Hderqdqne encounterRadha Cloud [facility] Start: 02-14-2025 End: 86-05-7035avbkiphdwmHrszia TannaFacility:EU BellevueStart: 02-14-2025 End: 17-11-7262Ewtzntn encounter procedureMaria E Osman [facility] start: 89-56-1779Nxn-patient / Non-visitLinda Alba VILLEGAS-[facility] Work Phone: Start: 02-03-2025 End: 02-23-6118yavgynveksUtcjmo E Braun MD Work Phone: [facility] Work Phone: Start: 02-03-2025 End: 79-09-2162Hrkfayj encounter Lia Starks MD-[facility] Work Phone: Start: 01-31-2025 End: 51-15-1750EykyyjSwrokevAsia Hernandez SUPERVISING FILM OR VIDEOTAPE EDITOR-ENROLLMENT MANAGEMENT DIRECTOR Work Phone: [facility] CardiologyComment on above:Med RefillStart: 35-48-0481Txw-patient / Non-visitCatherkalpana Saini CMA-[facility] Work Phone: Start: 53-37-9850Frx-patient / Non-visitIan Case DO-[facility] Work Phone: Start: 01-25-2025 End: 37-96-2422xawpauiqljWufaty TannaFacility:FTMCStart: 01-25-2025 End: 87-17-1086eirbajdgetYqomrv TannaFacility:EU BellevueStart: 01-25-2025 End: 41-57-3266Cpghmvq encounter procedureMaria E Osman [facility] start: 01-17-2025 End: 02-51-0080JgavyhPygyjadAsia Hernandez SUPERVISING FILM OR VIDEOTAPE EDITOR-ENROLLMENT MANAGEMENT DIRECTOR Work Phone: [facility] CardiologyComment on above:Med RefillStart: 12-29-2024 End: 30-66-2472eajdgcyradGlmzgu E Braun MD Work Phone: [facility] Work Phone: Start: 12-29-2024 End: 88-12-1748Cdrgfxq encounter procedureElliot Starks MD-[facility] Work Phone: Start: 12-27-2024 End: 28-89-8436Jqwzsj flowsheetEmerica Espinal MD Work Phone: noMS [facility] DermatologyStart: 12-27-2024 End: 38-06-9457Inqmla flowsheetEmerica Espinal MD Work Phone: noMS [facility] DermatologyStart: 12-27-2024 End: 23-01-5533Unukbnv encounter procedureEmerica Espinal MD Work Phone: NOCA Elle DermatologyComment on above:Seborrheic keratosis, inflamed (Primary Dx); Inflamed skin tag; MiliaMed RefillStart: 12-27-2024 End: 61-78-5262ctkzdiqovoZRHLI A PETITTINot AvailableStart: 18-74-6416Ydc- patient / Non-visitCatherine Parveen SUTHERLAND-[facility] Work Phone: Start: 16-51-6026Amd-patient / Non-visitEric Edy Case DO-[facility] Work Phone: Start: 15-49-1370Ntw-patient / Non-visitEric Edy Case -[facility] Work Phone: Start: 12-18-2024 End: 72-13-4997Hboclstpz department patient visitELLIOT STARKSFacility:[facility] HospitalStart: 12-05-2024 End: 60-12-5049rghrbjujyrUbecdzj J Luis Liz MDFacility:[facility] [place] Start: 11-29-2024 End: 94-87-6352ceqliboeoyKddgjj E Braun MD Work Phone: [facility] Work Phone: Start: 11-29-2024 End: 53-51-9559Cwkidcb encounter procedureElliot Starks MD-[facility] Work Phone: Start: 11-24-2024 End: 55-76-7361KkorwbMxkqhpw L Ybarra SUPERVISING FILM OR VIDEOTAPE EDITOR-ENROLLMENT MANAGEMENT DIRECTOR Work Phone: [facility] CardiologyComment on above:Med RefillStart: 11-09-2024 End: 27-85-0147Mzhavg-up encounterPamj [facility] CardiologyComment on above:CBCStart: 91-79-9933dbgzvvmlczLVYXXRSZJOVANNA [facility]am[facility] HospitalStart: 11-08-2024 End: 29-05-4759Wyjfwf-up encounterMarwalt [facility] CardiologyComment on above:Comprehensive metabolic panel, MagnesiumStart: 39-63-6891motasthxdiFIABCPHMRiverview Health Institutetart: 11-08-2024 End: 15-59-5240Qsczgg outpatient visit 15 minutesEmerica Jaeger [facility] HospitalNBRIGH[facility] Work Phone: [facility] CardiologyComment on above: Paroxysmal atrial fibrillation (CMS-HCC) (Primary Dx); Primary hypertension; PalpitationsStart: 11-08-2024 End: 77-57-0056hmakytlxxnRGGWMRiverview Health InstituteComment on above: Med RefillStart: 11-01-2024 End: 03-69-9771AouyquZvwbnekn Koffilucero SUPERVISING FILM OR VIDEOTAPE EDITOR-[facility] Work Phone: [facility] CardiologyComment on above:Med RefillStart: 10-31-2024 End: 43-10-5856pasnowulncSxknyuz Vytautas Giedraitis MDFacility:PM Jason Start: 10-26-2024 End: 12-32-1951nurvyyfobkUmjcxr TannaFacility:EU BellevueStart: 10-26-2024 End: 60-82-7134Kgczzfd encounter Kelsey Osman [facility] Jason start: 09-19-2024 End: 38-26-8225efhcnewnsmJunyh M. LueFacility:FTMCStart: 09-19-2024 End: 45-91-2411Ktolozo encounter Daron Miller [facility] Start: 09-12-2024 End: 85-12-6731mprxxocehdZghwujt R WATERSFacility:FTMCStart: 09-12-2024 End: 26-65-5809ypiprzklmaVrlir M. LueFacility:EU BellevueStart: 09-12-2024 End: 35-09-0769Pkcpnag encounter Daron Miller [facility] start: 08-22-2024 End: 48-21-1764erommevnhyQbznnkvDaisy Liz MDFacility:PM Jason Start: 08-07-2024 End: 93-35-8013XpenpiBkkhakw P Kyser PA-C Work Phone: [facility] CardiologyComment on above:Med RefillStart: 08-03-2024 End: 16-78-1089QxtvrdPflohgox Schlosser SUPERVISING FILM OR VIDEOTAPE EDITOR-ENROLLMENT MANAGEMENT DIRECTOR Work Phone: [facility] CardiologyComment on above:Med RefillStart: 07-27-2024 End: 71-18-1677KliotyPtwmjtjumAlma Rosa [facility] CardiologyComment on above:Med RefillStart: 07-20-2024 End: 45-70-4917WkjfizUasmi E Reinhart SUPERVISING FILM OR VIDEOTAPE EDITOR-ENROLLMENT MANAGEMENT DIRECTOR Work Phone: [facility] CardiologyComment on above:Med RefillStart: 18-11-2470zqvbsknrukDuoii M. LueFacility:EU BellevueStart: 07-14-2024 End: 27-51-1460Rdmtwc follow up visit related to original Ariadne Barrera APRN-ENROLLMENT MANAGEMENT DIRECTOR Work Phone: [facility] OrthopedicsComment on above:Hx of total hip arthroplasty, right (Primary Dx)Start: 07-14-2024 End: 27-98-1350Jggmowhmin hospital visit by Carrington Barrera APRN-ENROLLMENT MANAGEMENT DIRECTOR Work Phone: [facility] RadiologyStart: 40-86-8681clfcerkyep ELLIOT STARKSVirtua Voorhees HospitalStart: 06-30-2024 End: 40-21-9096MnratkWicutof Fischer SUPERVISING FILM OR VIDEOTAPE EDITOR-ENROLLMENT MANAGEMENT DIRECTOR Work Phone: [facility] CardiologyComment on above:Med RefillStart: 06-22-2024 End: 16-82-4809Jlo-admission assessmentKathy M. Lue [facility] Start: 06-22-2024 End: 10-21-9194uamprdmokyPijiiz TannaFacility:FTMCStart: 06-22-2024 End: 32-61-9555Ccn Drop offLauhermann Osman [facility] Start: 06-22-2024 End: 46-91-2376mkpjbglbrcDkngsb TannaFacility:EU BellevueStart: 06-22-2024 End: 22-19-7696Jxnnelz encounter procedureLalemuel Osman [facility] start: 06-21-2024 End: 49-51-3956mnpiwkoqyhNzunitwtvTriHealth [facility] Work Phone: Start: 06-21-2024 End: 11-21-7765Zcrgedb encounter procedureFirelands Physician Group-[facility] Work Phone: Start: 54-25-6399Vnk-patient / Non-visitFirelands Physician Group-[facility] Work Phone: Start: 05-09-2024 End: 64-89-5062clpcfcobwrNwuflbjhgTriHealth [facility] Work Phone: Start: 05-09-2024 End: 50-66-3378Iucmgsx encounter procedureFirelands Physician Group-[facility] Work Phone: Start: 04-30-2024 End: 16-29-4267Osvwkrw encounter procedureFirelands Physician Group-[facility] Work Phone: Start: 04-04-2024 End: 54-66-1510hajzhyrqgfAtgiulm J Luis Liz MDFacility:PM Jason Start: 02-01-2024 End: 67-92-2431oezelxnhcoQmroubioyMercy Memorial Hospital Work Phone: Start: 02-01-2024 End: 91-10-4056Hqorqzb encounter procedureMission Hospital Physician GroupProMedica [facility] Work Phone: Start: 01-02-2024 End: 76-85-5475KhglwrQvvintsvNancy HANEY Work Phone: [facility] CardiologyComment on above:Med RefillStart: 11-26-2023 End: 01-98-5559Mutzkewdfb hospital visit by Zack Ohara MD Work Phone: [facility] RadiologyStart: 73-63-7437idwfozurmxHGNLJOhioHealth Van Wert Hospitaltart: 11-26-2023 End: 69-42-4638Ibblmv outpatient visit 15 minutesYesi Ohara MD Work Phone: [facility] OrthopedicsComment on above:Hx of total hip arthroplasty, right (Primary Dx)Paroxysmal atrial fibrillation (CMS-HCC) (Primary Dx); Unstable angina (CMS-HCC); SOB (shortness of breath)Start: 11-25-2023 End: 97-44-8431Ocqgnzdsv encounterJumaryam Novak CardiologyStart: 10-28-2023 End: 15-87-6761axlbwoxnrkAvvfyotkzMercy Memorial Hospital Work Phone: Start: 10-28-2023 End: 45-73-0874Ipyfosn encounter procedureMission Hospital Physician GroupProMedica Flower [facility] Work Phone: Start: 10-19-2023 End: 24-12-9426EhakjrFfandrza Shuaib MD Work Phone: [facility] CardiologyComment on above:Med RefillStart: 71-79-5509Tqktdxtph encounterNgozi Adams RNHematology/Oncology Comment on above:Yearly Exam With MammogramStart: 08-20-2023 End: 00-68-9837Cmkzkgxxdn hospital visit by Germán Dougherty Work Phone: [facility] RadiologyStart: 04-65-6430egntkcbqnf LUZ DOUGHERTYVirtua Voorhees HospitalStart: 08-20-2023 End: 63-47-7007Dmhwho follow up visit related to original Juan Dougherty Work Phone: [facility] OrthopedicsComment on above:Right hip pain (Primary Dx)Start: 76-54-5114oimqfknyunHIDKKJVaughan Regional Medical Center Start: 08-10-2023 End: 25-98-3402CsppepYevdrtzt Bialecki SUPERVISING FILM OR VIDEOTAPE EDITOR-ENROLLMENT MANAGEMENT DIRECTOR Work Phone: [facility] CardiologyComment on above:Med RefillStart: 07-23-2023 End: 10-06-5754Upaoxn follow up visit related to original Juan Dougherty Work Phone: [facility] OrthopedicsComment on above:Tear of gluteus minimus tendon, right, initial encounter (Primary Dx)Start: 07-23-2023 End: 49-47-6842Qeyxlvnffj hospital visit by Germán Dougherty Work Phone: [facility] RadiologyStart: 05-29-4449mcszefbaoz LUZ DOUGHERTYJersey Shore University Medical Centertart: 29-56-1873YfjxyaSlcotdru Shuaib MD Work Phone: [facility] CardiologyComment on above:Med RefillStart: 41-37-1205Fefjfwrty encounterSara Sacha [facility] CardiologyStart: 07-07-2023 End: 83-63-4086Jnwnrvqgsm and management of inpatientStanner Ohara MD Work Phone: [facility] Med SurgComment on above:Status post revision of total hipStart: 07-07-2023 End: 19-77-1766Wgundnx encounter Hina Ohara MD Work Phone: [facility] SystemStart: 71-06-8238Ffczvbj encounter statusDunlap Memorial Hospitaltart: 11-35-9477Pqdjwsehzgxfv examination Russell Starks MD Work Phone: [facility] Hospitaltart: 06-19-2023 Telephone encounterJojohn Novak CardiologyComment on above: Pre op clearanceStart: 06-18-2023 End: 00-41-4071Gacrxs outpatient visit 40 Sadaf Ohara MD Work Phone: [facility] OrthopedicsComment on above:Right hip pain (Primary Dx)Start: 06-02-2023 End: 53-32-6239Fmpvcj outpatient visit 25 minutesMundo Diaz MD Work Phone: [facility] CardiologyComment on above: Paroxysmal atrial fibrillation (CMS-HCC) (Primary Dx); Primary hypertension; Chronic coronary artery diseaseStart: 05-14-2023 End: 37-13-4534Ejpxhr outpatient new 30 minutesYesi Ohara MD Work Phone: [facility] OrthopedicsComment on above:Pain in prosthetic joint, initial encounter (Primary Dx); Primary osteoarthritis of right hipStart: 05-14-2023 End: 70-32-8836Jsjopohjgl hospital visit by Zack Ohara MD Work Phone: [facility] RadiologyStart: 03-30-2023(Televisit) TelevisitElliot StarksUniversity Hospitals Geauga Medical Centertart: 03-30-2023 End: 13-44-0899qoyeacunhkTffyom Braun Other [facility], Neighbor[facility] [employer] Other Start: 02-11-2023 End: 31-65-9157Llykutx encounter Daron Miller [facility] start: 12-29-2022 End: 77-28-5493Ekczdwbcuraa Desean Diaz MD Work Phone: [facility] CenterMatch SystemStart: 11-17-2022 End: 41-49-5056obpsubxpszWgkavu Braun Other [phone] Animal Diagnostics Other Start: 13-89-0229Drlhjymfs encounterElliot [facility] ClinicStart: 10-30-2022 End: 46-58-1012xqmppknccqEizhaz Braun Other noAdvanced Animal Diagnostics Other Start: 61-98-9176Mkpckm outpatient visit 15 minutes [facility] ClinicStart: 10-29-2022 End: 10-04-5196xfumlpjvpbJcgalh Braun Other Ay[employer] Other Start: 53-86-2427Ozybxxgeh encounterElliot [facility] ClinicStart: 08-46-4011Aakwogi evaluation of patient and report [facility] Systemstart: 10-27-2022 End: 69-49-9205tkvsgruaowJxrlcj Braun Other [employer] Other Start: 10-27-2022 End: 16-77-7329Mqgcvcvz ReferredMD Elliot Starks Work Phone: [facility] [place] Work Phone: Start: 43-73-4914Sejpsguwn encounterNgozi Adams RN Hematology/OncologyComment on above:OrdersStart: 08-11-2022 End: 21-91-4812rkwyeffuatKgpztv Braun Other [employer] Other Start: 45-64-9058Immjqrh evaluation of patient and reportElliot [facility]ley [facility] Hospital ClinicStart: 07-17-2022(Televisit) Televisit [facility] ClinicStart: 07-17-2022 End: 76-07-5421ihhjeaqwzkZfoidl Braun Other noAdvanced [facility] Diagnostics Other Start: 06-23-2022 End: 00-87-8626oeahacleokYocaiu Braun Other noAdvanced [facility]ostics Other Start: 26-56-7707Ihvwvdl evaluation of patient and reportElliot [facility]ley [facility] ClinicStart: 06-09-2022 End: 58-27-1513cusyliecalON MARCIA E BRAUNFacility:F4Ndkzv: 06-06-2022 End: 20-27-5646nszvttjulbWmykba Braun Other noAdvanced [facility] Diagnostics Other Start: 93-37-4127Wjsyqiiwd encounterElliot [facility] ClinicStart: 06-04-2022 End: 81-23-2873ygjvakiekqXtskvk Braun Other noAdvanced [facility] Diagnostics Other Start: 62-99-4291Zbtzkj outpatient visit 25 minutes Elliot [facility] ClinicStart: 05-21-2022 End: 84-79-8457zoafxjvnvrWbbfdb Braun Other noAdvanced [facility] Diagnostics Other Start: 11-47-4707Rdfdutmfm encounterElliot [facility] ClinicStart: 04-26-2022 End: 32-20-3368ntxdgfaopxOP MARCIA E BRAUNFacility:M3Idymc: 04-14-2022 End: 53-74-4558jabmuighhtAV MARCIA E BRAUNFacility:A4Iftuf: 60-27-5865Hsbmlszcl encounterTin Choi MD Work Phone: Hematology/OncologyComment on above:Lab OrdersStart: 54-01-5525Fsmywmrbf encounterMikaela Thompson RN Work Phone: Hematology/OncologyComment on above:Radiology MammogramStart: 12-02-2016 End: 41-47-6627ShdeoadyeoVZPSBYN PHYSICIANFacility:[facility] Procedures DateProcedureProcedure DetailPerforming ClinicianStart: 30-94-5302Tbgmnm-up visitFollow-upRLUCIAN GARCIAtart: 87-16-7795ROX, HOSPITAL REPORT Nevin Houston MD Work Phone: Start: 43-01-5212CMHBAMPBLCC SKIN LESIONRadha Espinal MD Work Phone: Start: 36-64-9948Kve routine ecg w/least 12 lds w/i&r Radhaerica Mart SUPERVISING FILM OR VIDEOTAPE EDITOR-ENROLLMENT MANAGEMENT DIRECTOR Work Phone: Start: 63-93-2633Fmvevd-up visitFollow-upRADHA MART Start: 43-63-3392Umltm metabolic panel calcium totalAdam Barbara Mahoney MD Work Phone: Start: 22-24-5329Asxfikoq blood count with white cell differential, automatedChelsea Marine Hospitald BLAZER [employer] FLIP FLOPS SUPERVISING FILM OR VIDEOTAPE EDITOR-ENROLLMENT MANAGEMENT DIRECTOR Work Phone: Start: 30-64-5481Oenzwv nuc acid amp prb cult/isolate ea orgnismAdam Barbara Mahoney MD Work Phone: Start: 50-86-1467Urogirdjbu examination pelvis 1/2 viewsChad BLAZER & FLIP FLOPS SUPERVISING FILM OR VIDEOTAPE EDITOR-ENROLLMENT MANAGEMENT DIRECTOR Work Phone: Start: 77-75-1480Sefr count miscellaneous body fluids Yesi Ohara MD Work Phone: Start: 59-36-9429Qqylubztt culture and sensitivity Yesi Ohara MD Work Phone: Start: 07-07-2023 End: 13-37-6495Vcaefcl bacterial any source anaerobic iso&idStanner Ohara MD Work Phone: Start: 07-07-2023 End: 21-85-3861Vyya tot hip arthrp bth w/wo agrft/algrftStanner Ohara MD Work Phone: Start: 07-07-2023 End: 08-79-0903Thulgqtk procedure pelvis/hip jointStanner Ohara MD Work Phone: Start: 92-86-5753Kklew group typing, RH phenotyping Larissa Rollins PA-C Work Phone: Start: 41-86-0818Yal routine ecg w/least 12 lds w/i&r Mundo Diaz MD Work Phone: Start: 38-44-5731Pnybr metal quantiative each Laura Ohara MD Work Phone: Start: 86-66-2982SzunckgfdrgQqarqil Sessler RN Work Phone: Start: 63-92-6164Ewtwj depression screening assessment Mikaela Thompson RN Work Phone: Start: 75-16-3088ShhequsmqttTxsovq Sheikh MD Work Phone: Start: 73-23-2492Eckpdkrme mammographyMarcia Maria Luisa Other Start: 84-62-7224Xssnaep examination of patientMarcia Maria Luisa Other AppendectomyKatana Moraese Bilateral cataracts (disorder)Axel Miller Cardiac ablation system (physical object)Axel Miller CholecystectomyKatana Moraese Insertion of hip prosthesisKatana Moraese Lumpectomy of left breastKatana Moraese Rotator cuff including muscles and tendons (body structure)Axel Miller Screening for malignant neoplasm of breastMarcia Maria Luisa Other Total abdominal hysterectomyKatana Moraese Plan of Treatment DateCare ActivityDetailAuthorStart: 56-71-2950Jxyrpcy ScreeningTobacco Screening [facility] SystemStart: 74-97-4135MRLCT-19 Vaccine ( season) COVID-19 Vaccine ( season)[facility] SystemStart: 05-01-2025 End: 75-27-9532Nbnljwk encounter ipvhuwign87/29/2025 3:30 PM EST Office Visit [facility] [address] [place] [phone] Oscar Sandoval MD [address] [place] [address] [facility] CardiologyStart: 49-51-0794yscwqxelhpIpxcdezcejNphagklb:EU BellevueStart: 04-15-2025 Administration of varicella zoster vaccineZoster (Shingles) Vaccine (2 of 2) [facility] SystemStart: 02-23-2025 End: 99-34-4832Goxzloa encounter euaavqrkh91/23/2025 2:45 PM EDT Office Visit [facility] [address] [place] [phone] Jocelynn Houston MD [address] [place] [address] [facility] CardiologyStart: 02-23-2025 End: 51-34-2826Neajv Monitor (In Office)[facility] Work Phone: Comment on above:Expected: 02/23/2025, Expires: 02/23/2026Start: 33-59-2484QdnqhtmqpDunlap Memorial Hospitaltart: 01-02-2025 COVID-19 Vaccine ( season)COVID-19 Vaccine ( season) [facility] SystemStart: 22-26-5692Npnossqge vaccinationProMedica Health SystemStart: 12-27-2024 End: 61-19-9442Tavafly encounter nkufgqcph94/26/2025 10:00 AM EDT Office Visit [facility] [address] [phone] Radha Espinal MD [address] [place] [address] [facility] DermatologyComment on above:ArrivedStart: 86-33-8967Soxir BMI ScreeningAdult BMI ScreeningProKettering Health [facility] SystemStart: 88-30-5953Kojgfrj ScreeningTobacco ScreeningProKettering Health Main Campus SystemStart: 11-08-2024 End: 15-21-8091Dndikgs encounter phmbpzqvy17/08/2025 9:00 AM EDT Office Visit [facility] [address] [place] [address] Radha Mart, SUPERVISING FILM OR VIDEOTAPE EDITOR-ENROLLMENT MANAGEMENT DIRECTOR [address] [place] [address] [facility] CardiologyStart: 29-46-4270Dagoj BMI ScreeningAdult BMI ScreeningProKettering Health Main Campus SystemStart: 74-80-7438Vmcykeamq for malignant neoplasm of breastMAMMOGRAM SCREENING DISCUSSIONPremier Health [facility] SystemStart: 49-77-3912Ueqkb BMI ScreeningAdult BMI ScreeningSelect [facility] SystemStart: 08-11-2024 End: 09-23-7890NWY panel - Blood by Automated countCBC Lab Routine Paroxysmal atrial fibrillation ([facility]-HCC) Benign hypertension Expected: 08/11/2024 (A pproximate), Expires: 08/10/2025[facility] SystemComment on above: Expected: 08/11/2024 (Approximate), Expires: 08/10/2025Start: 08-11-2024 End: 93-58-6785Dyxglzzycuzoq metabolic 2000 panel - Serum or PlasmaCMP Lab Routine Paroxysmal atrial fibrillation (CMS-HCC) Benign hypertension Expected: 08/11/2024 (Approximate), Expires: 08/10/2025[facility] Work Phone: Comment on above:Expected: 08/11/2024 (Approximate), Expires: 08/10/2025Start: 08-11-2024 End: 94-44-6830Xiwbcmicv [Mass/volume] in Serum or PlasmaMagnesium Lab Routine Paroxysmal atrial fibrillation (CMS-HCC) Benign hypertension Expected: 025 (Approximate), Expires: 08/10/2025[facility] SystemComment on above: Expected: 08/11/2024 (Approximate), Expires: 08/10/2025Start: 50-98-5044Xesljki ScreeningTobacco ScreeningSelect [facility] SystemStart: 51-15-0374AYBCY-19 Vaccine ()COVID-19 Vaccine ()[facility] SystemStart: 77-56-6860Elrdqxt ScreeningTobacco ScreeningSelect [facility] SystemStart: 07-14-2024 End: 15-03-3880Bjdgruf encounter /13/2025 11:20 AM EDT Office Visit [facility] [address] [place] [address] Yesi Ohara MD [address] [place] [address] [facility] OrthopedicsStart: 61-47-4715Wjhjihxvp [Moles/volume] in Serum or PlasmaPOTASSIUMPremier Health [facility] Hospital SystemStart: 06-02-2024 Adult BMI ScreeningAdult BMI ScreeningSelect [facility] SystemStart: 06-02-2024 Tobacco ScreeningTobao ScreeningRutherford Regional Health Systemtart: 02-16-2024 End: 51-01-3019Zqweqyc encounter havoblfqs34/15/2024 11:00 AM EDT Office Visit [facility] [address] [place] [address] Sheridan Kaye MD [address] [place] [address] [facility] CardiologyStart: 68-30-6442LADCS-19 Vaccine ()COVID-19 Vaccine ()[facility] SystemStart: 44-47-0841LTTUU-19 Vaccine ()COVID-19 Vaccine ()[facility] SystemStart: 50-91-7868Kdgnseqbp vaccinationTrinity Health Systemtart: 11-26-2023 End: 88-17-0330Onfaovq encounter procedureVirtua Voorhees Orthopedictart: 35-52-1940OYDABABB SCREENDIABETES SCREENTrinity Health Systemtart: 10-09-2023 Diabetes ScreeningDiabetes ScreeningTrinity Health Systemtart: 08-20-2023 End: 78-13-3240Zyatzzu encounter hpzghsgyp71/18/2024 2:30 PM EDT Office Visit [facility] [address] [place] [phone] Luz Dougherty [address] [place] [address] [facility] Orthopedictart: 08-12-2023 End: 28-01-2477Zmcobmk encounter agdzzhobp00/10/2024 8:00 AM EDT Office Visit [facility] [address] [place] [phone] Yesi Vasquez, SUPERVISING FILM OR VIDEOTAPE EDITOR-ENROLLMENT MANAGEMENT DIRECTOR [address] [place] [address] [facility] CardiologyStart: 07-23-2023 End: 78-45-8436Wxpmjqh encounter yyzeokdzr41/21/2024 2:30 PM EDT Office Visit [facility] [address] [place] [phone] Luz Dougherty [address] [place] [address] [facility] OrthopedicsStart: 07-07-2023 End: 21-19-1739Lgbrayfnrl and management of inpatientVirtua Voorhees PeriopComment on above:Tear of rotator cuff of right hip, initial encounterOPEN ABDUCTOR TEAR REPAIRStart: 07-07-2023 End: 20-05-2732Kpqf tot hip arthrp bth w/wo agrft/algrftREVISION ARTHROPLASTY HIP BOTH ACETABULAR & FEMORAL COMPONENTS Tear of rotator cuff of right hip, initial encounter 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, initial encounter 07/07/2023 12:25 PM [facility] ORStart: 07-07-2023 End: 31-25-0616Jppdjvqu procedure pelvis/hip jointGLUTEUS MEDIUS TENDON REPAIR Tear of rotator cuff of right hip, initial encounter Other mechanical c omplication of internal right hip prosthesis, initial encounter 07/07/2023 12:25 PM [facility] ORStart: 06-25-2023 End: 55-48-1750Nzcsvjrpw to uhqofhoqvdgct76/22/2024 10:00 AM EST Pre-Operative Nurse Assessment [facility] [address] [place] [address] Pre-op testing (Primary Dx); Essential (primary) hypertension;Abnormal finding of blood chemistry, unspecified; Abnormal coagulation profileVirtua Voorhees Pre AdmissionComment on above:Pre-op testing (Primary Dx); Essential (primary) hypertension; Abnormal finding of blood chemistry, unspecified; Abnormal coagulation profileStart: 59-83-7469UHXKT-19 Vaccine ( season)COVID-19 Vaccine ()[facility] NorthHeadplayPilgrim Psychiatric Centertart: 05-28-2023 End: 67-80-1221Mocdjtl encounter fygfzorcb39/25/2024 11:00 AM EST Office Visit [facility] [address] [place] [address] Peter Gardiner, DO [address] [place] [address] [facility] OrthopedicsStart: 05-14-2023 End: 30-27-7139TB Hip - right WO contrastMRI HIP RIGHT WITHOUT CONTRAST Imaging Routine Pain in prosthetic joint, initial encounter Expected: 05/14/2023, Expires: 05/14/2024[facility] SystemComment on above:Expected: 05/14/2023, Expires: 05/14/2024Start: 68-14-9892Rquwcog Directive DiscussionAdvance Directive DiscussionCleAshtabula General Hospitaltart: 45-02-8317Nsfgtqnpow Health Screening Behavioral Health ScreeningTrinity Health Systemtart: 64-32-6049Exevo-19 Vaccine (3 - 2023-24 season)Covid-19 Vaccine ( season)[facility] Systemtart: 41-33-7325FDQWJ-19 VACCINE ()COVID-19 VACCINE ( season)[facility] Hospitaltart: 71-60-6332Zgjoulioe vaccinationINFLUENZA (Season Ended)[facility] Systemtart: 61-85-6837Qyanozom identified in Urine by CultureDunlap Memorial Hospitaltart: 46-29-8312CFCETZO DIRECTIVE DISCUSSIONADVANCE DIRECTIVE DISCUSSIONTrinity Health Systemtart: 05-04-2022 DEPRESSION ASSESSMENTDEPRESSION ASSESSMENTCleAshtabula General Hospitaltart: 04-08-2022 Screening for malignant neoplasm of colonCosouthpointe hospitalscopyAshtabula General Hospital Start: 75-36-0917Erjcrpdxl vaccinationINFLUENZA (Season Ended)[facility] Start: 10-07-2021 End: 08-13-1351Lyygsp Ag 27-29 [Units/volume] in Serum or PlasmaCA 27.29 BLOOD Lab Routine Malignant neoplasm of upper-outer quadrant of left breast in female, estrogen receptor positive (HCC) Expected: 10/07/2021, Expires: 12/07/2021 [facility] Work Phone: Comment on above:Expected: 10/07/2021, Expires: 12/07/2021tart: 10-07-2021 End: 77-02-2387XLW W Auto Differential panel - BloodCBC + DIFF Lab Routine Malignant neoplasm of upper-outer quadrant of left breast in female, estrogen receptor positive (HCC) Expected: 10/07/2021, Expires: 12/07/2021[facility] Work Phone: Comment on above:Expected: 10/07/2021, Expires: 12/07/2021tart: 10-07-2021 End: 06-85-6143Mdegnzwsemcei metabolic 2000 panel - Serum or PlasmaCOMP METABOLIC PANEL Lab Routine Malignant neoplasm of upper-outer quadrant of left breast in female, estrogen receptor positive (HCC) Expected: 10/07/2021, Expires: 12/07/2021[facility] Work Phone: Comment on above:Expected: 10/07/2021, Expires: 12/07/2021tart: 19-86-4204MglmnfhnfveJZCPGWFTXHtwwifwcj ClinicStart: 05-04-2021 ADVANCE DIRECTIVE DISCUSSIONADVANCE DIRECTIVE DISCUSSIONTrinity Health Systemtart: 10-41-1272FZPSI-19 VACCINE (3 - Booster for Pfizer series)COVID-19 VACCINE (3 - Booster for Pfizer series)[facility] Systemtart: 26-06-0563Eidla depression screening assessmentDEPRESSION SCREENINGTrinity Health Systemtart: 32-59-1365EIYNB- 19 VACCINE (3 - Booster for Pfizer series)COVID-19 VACCINE (3 - Booster for Pfizer series)[facility] Systemtart: 13-80-4265Rilkwbcnufgm Vaccine: 65+ (2 of 2 - PCV)Pneumococcal Vaccine: 65+ (2 of 2 - PCV)[facility] Systemtart: 01-05-2019 PNEUMOCOCCAL: 65+ (2 - PCV)PNEUMOCOCCAL: 65+ (2 - PCV)[facility] Systemtart: 74-91-0782EIOU DENSITYBONE DENSITYTrinity Health Systemtart: 06-17-1032Lmka Risk ScreeningFall Risk ScreeningProSouthwest General Health Centertart: 38-63-2384Sdoadzxgt for osteoporosisBone Density ScreeningTrinity Health Systemtart: 59-96-6989PEX Vaccine (1 - 1-dose 60+ series)RSV Vaccine (1 - 1-dose 60+ series)[facility] Systemtart: 37-06-8059Goetqydycvlpvd of varicella zoster vaccineZoster (Shingles) Vaccine (1 of 2)[facility] SystemStart: 29-21-6986DVCOJLJQ VACCINE (1 of 2)SHINGRIX VACCINE (1 of 2)[facility] Systemtart: 46-92-9473Olsvpf vaccine hzv live for subcutaneous useZOSTER (SHINGLES) VACCINE (1 of 2)[facility]: 91-04-4042GMGJVBHYO (FIT-DNA)COLOGUARD (FIT-DNA)[facility] Systemtart: 41-50-2977PzyieahyhdzDVGUIFWXUMBShajpjukq ClinicStart: 07-07-1992 COLORECTAL CANCER SCREENINGCOLORECTAL CANCER SCREENINGTrinity Health Systemtart: 17-20-6410NR COLONOGRAPHYCT COLONOGRAPHYTrinity Health Systemtart: 36-87-6118NLMNP OCCULT BLOODFECAL OCCULT BLOODTrinity Health Systemtart: 90-52-2839PRISD SCREENLIPID SCREENTrinity Health Systemtart: 42-83-3424Vxiebnrvu for malignant neoplasm of colonCOLORECTAL CANCER SCREENING DISCUSSIONMcCullough-Hyde Memorial Hospitaltart: 07-07-1992 SIGMOIDOSCOPYSIGMOIDOSCOPYTrinity Health Systemtart: 07-88-7180Gxcve panelLIPID SCREENINGMcCullough-Hyde Memorial Hospitaltart: 95-63-9730Ksuqncnrl for malignant neoplasm of breastMAMMOGRAM SCREENING DISCUSSIONMcCullough-Hyde Memorial Hospitaltart: 07-07-1968 Screening for malignant neoplasm of cervixCERVICAL CANCER SCREENING DISCUSSION [facility] Hospitaltart: 00-02-0025HCiY,Tdap and Td Vaccines (1 - Tdap) DTaP,Tdap and Td Vaccines (1 - Tdap)[facility]: 07-07-1966 Third diphtheria, tetanus and acellular pertussis (DTaP) vaccinationTDAP (ADULT) [facility] Hospitaltart: 78-64-8519Gdmvz microalbumin profileClermont County Hospital Start: 28-58-9254Iiona BMI Follow Up PlanAdult BMI Follow Up PlanRutherford Regional Health Systemtart: 32-58-6254IFHTCJVVE C SCREENINGHEPATITIS C SCREENING [facility]tart: 39-39-6487Scqvpubzuo ScreeningDepression Screening [facility] Systemtart: 04-66-1829NBMYGVQYRRXZ: 65+ (1 - PCV)PNEUMOCOCCAL: 65+ (1 - PCV)[facility] Systemtart: 42-68-4493Xbartauuc C screeningHEPATITIS C VIRUS SCREENINGMcCullough-Hyde Memorial Hospitaltart: 03-06-1948Medicare Annual Wellness VisitMedicare Annual Wellness VisitRutherford Regional Health Systemtart: 1945 Potassium [Moles/volume] in Serum or PlasmaPOTASSIUMMcCullough-Hyde Memorial Hospitaltart: 85-22-0116Snvjgfhys for osteoporosisDEXA SCAN DISCUSSIONVan [facility] Start: 46-70-4631Ukjqnie vaccinationTETANUSAKettering Health PrebleANAEROBE CULTURE [facility] HospitalComment on above:Release Upon Ordering for 1 Occurrences starting 07/07/2023acterial culture and sensitivityCULTURE WOUND Microbiology Routine 07/07/2023 2:27 PM [facility] Caro CenterBODY FLUID CELL COUNTBODY FLUID CELL COUNT Fluids Routine Tear of rotator cuff of right hip, initial encounter 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, initial encounter Release Upon Ordering for 1Occurrences starting 07/07/2023[facility] Kisskissbankbank TechnologiesComment on above:Release Upon Ordering for 1 Occurrences starting 07/07/2023 End: 74-49-5618Vklkaptbrlmqy metabolic 2000 panel - Serum or PlasmaComprehensive metabolic panel Lab Routine Primary hypertension 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 ([facility]) 1 Occurrences starting 08/04/2024 until 08/04/2025[employer] Work Phone: Comment on above:1 Occurrences starting 08/04/2024 until 08/04/2025 End: 15-03-6702YDR Breast - bilateral screeningMAM SCREENING W YAW Radiology Routine Encounter for screening mammogram for malignant neoplasm of breast 1 Occurrences starting 09/17/2023 until 10/16/2024[facility] [employer] Work Phone: Comment on above:1 Occurrences starting 09/17/2023 until 10/16/2024 End: 02-72-5181Qjbpsy identified in Unspecified specimen by [facility] HospitalPervasis Therapeutics Caro CenterComment on above:Release Upon Ordering for 1 Occurrences starting 07/07/2023One Time for 1 Occurrences starting 07/07/2023 until 07/07/2023 End: 41-45-0955Brrutlryb [Mass/volume] in Serum or PlasmaMagnesium Lab Routine Primary hypertension Coronary artery disease involving chehalis coronary arteryof chehalis heart with unstable angina pectoris ([facility]) 1 Occurrences starting 08/04/2024 until 08/04/2025[facility] Beaker SystemComment on above:1 Occurrences starting 08/04/2024 until 08/04/2025 End: 17-24-8631UAE SCREENING W TOMOMAM SCREENING W YAW Radiology Routine Encounter for screening mammogram for malignant neoplasm of breast 1 Occurrences starting 09/26/2021 until 10/26/2022[facility] [employer] Work Phone: Comment on above:1 Occurrences starting 09/26/2021 until 10/26/2022 End: 68-16-5146SNY SCREENING W TOMOMAM SCREENING W YAW Radiology Routine Encounter for screening mammogram for malignant neoplasm of breast 1 Occurrences starting 09/11/2022 until 10/11/2023[facility] Work Phone: Comment on above:1 Occurrences starting 09/11/2022 until 10/11/2023 End: 80-76-2841Saksfnwhtzkeb sp identified in Unspecified specimen by Organism specific cultureAlpha Smart SystemsComment on above:Release Upon Ordering for 1 Occurrences starting 07/07/2023One Time for 1 Occurrences starting 07/07/2023 until 07/07/2023XR Pelvis and Hip - right ViewsXR HIP WITH PELVIS RIGHT Imaging Routine Primary osteoarthritis of right hip 05/14/2023 9:20 AM [employer] Work Phone: XR Pelvis and Hip - right ViewsXR HIP WITH PELVIS RIGHT Imaging Routine Tear of gluteus minimus tendon, right, initial encounter 07/23/2023 2:22 PM MaxtenaXR Pelvis and Hip - right ViewsXR HIP WITH PELVIS RIGHT Imaging Routine Right hip pain 08/20/2023 3:17 PM MaxtenaXR Pelvis and Hip - right ViewsXR HIP WITH PELVIS RIGHT Imaging Routine Hx of total hip arthroplasty, right 11/26/2023 1:53 PM MaxtenaXR Pelvis and Hip - right ViewsXR HIP WITH PELVIS RIGHT Imaging Routine Hx of total hip arthroplasty, right 07/14/2024 1:07 PM [facility] Immunizations Immunization DateImmunizationNotesCare XqmhipglYztmuzvk03-99-0457ngjcws vaccine, unspecified formulationJocelynn Houston MD Work Phone: [facility] CenterMatch Jjljrx47-31-2597vanrbkcdg virus vaccine, unspecified formulationMaria E Osman [facility]10-10-2023influenza virus vaccine, unspecified formulationKathy Lue [facility]10-01-2022influenza virus vaccine, unspecified formulationKathy Lue [facility]04-12-2022SARS-CoV-2 mRNA (tzrpgbuhtbf-laae-ovnnuqv) vaccineKathy Lue [facility]09-28-2021SARS-CoV-2 (COVID-19) mRNA BNT-162b2 vaxKathy Lue [facility] Medical CenterComment on above:Result Comment: 2023-02-11: [id number]-97 vaccine, age 12+ yr (PFIZER-BIONTECH - PURPLE TOP)Mikaela Thompson RN Work Phone: [facility] HospitalTefefc11-31-5961DPAN-IdS-0 (COVID-19) mRNA BNT-162b2 vaxKathy Lue [facility]01-15-2021COVID-19 vaccine, age 12+ yr (PFIZER-BIONTECH - PURPLE TOP) Mikaela Thompson RN Work Phone: [facility] HospitalMkiqkk54-40-0401cdzrgsxkc virus vaccine, split virus (incl. purified surface antigen)Elliot Starks Other [place] [employer] Other [id number] virus vaccine, unspecified formulationKathy Lue [facility]09-19-2019influenza virus vaccine, unspecified formulationKathy Lue [facility]09-19-2019influenza, high dose seasonal, preservative-freeMikaela Thompson RN Work Phone: [facility] HospitalSscnxz03-40-2276vvqafrgkh virus vaccine, unspecified formulationKathy Lue [facility]09-04-2018influenza virus vaccine, split virus (incl. purified surface antigen)Elliot Starks Other [place] [employer] Other [id number] virus vaccine, unspecified formulationKathy Lue [facility]09-04-2018influenza, high dose seasonal, preservative-freeRelex Thompson RN Work Phone: [facility] HospitalAmfalo78-77-5007zzwgcqatunmd polysaccharide vaccine, 23 valentRelex Thompson RN Work Phone: [facility] HospitalQubwkg20-45-8927vjebchwbk virus vaccine, unspecified formulationKathy Lue [facility]10-17-2017pneumococcal polysaccharide vaccine, 23 valentKathy Lue [facility]10-05-2017influenza virus vaccine, split virus (incl. purified surface antigen)Elliot Starks Other [facility] [employer] Other 230721-89-7141kcsskpwym virus vaccine, unspecified formulationKathy Lue [facility]10-05-2017pneumococcal conjugate vaccine, 13 valentKathy Lue [facility]10-01-2002pneumococcal polysaccharide vaccine, 23 valentMarcia Starks Other [facility] Payers DatePayer CategoryPayerPolicy [id number] Health [id number] (Managed Care) MEDICARE AETNA PPO [id number] 2022Medicaid [id number] 2022Medicare [facility] Member Subscriber Plan / Payer (Effective 2021-Present) Name: Bettie Burns Relation to Subscriber: Self Name: Bettie Burns Payer ID: 1 (NA) Type: Not on file Address: [address] [place] [id number] 2015MedicareAETNA MEDICARE AETNA MEDICARE PPO [id number] 2014-Present [phone] [address] [place] [address] [id number] 2015Medicare [id number] [id number] 1948 [id number] 2.16.840.1.736423.3.57[id number] 2.16.840.1.979395.3.57[id number] 2.16.840.1.863604.3.57[id number] 2.16840.1.782065.3.57[id number] 2.16.840.1.407378.3.57[id number] 2.16840.1.666959.3.57[id number] 2.840.1.302548.3.57[id number] 2.16840.1.719601.3.57[id number] 2..840.1.520445.3.57[id number] 2.840.1.597570.3.57[id number] 2.840.1.228293.3.57[id number] 2.16840.1.742948.3.57[id number] 2.16.840.1.601713.3.57[id number] 2.16840.1.816540.3.57[id number] 2.16840.1.219231.3.57[id number] 2.16840.1.230073.3.57[id number] 2.16840.1.810416.3.57[id number] 2.840.1.281524.3.57[id number] 2.16840.1.555868.3.57[id number] 2.0.1.401447.3.57[id number] 2.0.1.661197.3.57[id number] 2.840.1.995969.3.57[id number] 2..1.609910.3.57[id number] 2.0.1.500533.3.57[id number] 2.0.1.285826.3.579.[id number] 2.840.1.729344.3.57[id number] 2.840.1.445152.3.57[id number] 2.16840.1.714731.3.579.2.[id number] 2.840.1.221936.3.57[id number] 2.16.840.1.518221.3.57[id number] 2.16.840.1.173575.3.579.2.60336-85-4821Kgmfhvm13333545 2.16.840.1.055851.3.579.2.[id number] 2.16.840.1.881757.3.57[id number] 2.16.840.1.061273.3.57[id number] 2.16.840.1.036864.3.579.2.718Private Health InsuranceCanby Medical Center RQRSZKKD0ZKF [id number] 2.16.840.1.647888.3.579.2.531 Social History DateTypeDetailFacilityStart: 12-03-2015 End: 51-27-9882Ancgfdm smoking status NHISEx-smokerClermont County Hospital End: 62-59-8803Sfzbxtq of tobacco useCurrent smokerTrinity Health Systemtart: 12-03-2015 End: 82-66-1765Dzzdeqvlmx smoked current (pack per day) - Grhjbplk0Yinhx Health SystemStart: 12-03-2015 End: 93-63-5831Lhouglt use and exposureSmokeless tobacco non-userTrinity Health Systemtart: 10-08-2020 End: 89-75-3097Wdyerkr intakeCurrent drinker of alcohol (finding)[facility] Systemtart: 97-32-1755Vck Assigned At BirthNot on fileTrinity Health Systemtart: 05-15-2020 End: 48-48-6466Sas Assigned At [facility] End: 33-46-7720Qwwihay of tobacco useCigarette SmokerTrinity Health Systemtart: 26-62-0840Fsg Assigned At BirthBarnesville HospitalTobacco smoking statusNeverExecutive [facility] of [facility] Jason Start: 13-85-3766Omyjbef smoking status NHISNever smoked tobaccoVan Wert County HospitalHas the electric, gas, oil, or water company threatened to shut off services in your home in past 12MoNHaywood Regional Medical Center System(I/We) worried whether (my/our) food would run out before (I/we) got money to buy more.Never [facility]tart: 03-19-2017 End: 09-27-4648Nhayapx CommentsocialRutherford Regional Health Systemtart: 12-07-2014 End: 02-12-6972GtgJstogo (finding)[facility] Hospitaltart: 94-28-2582Dkodadq Commentquit in 1989[facility] Systemtart: 05-09-2018 Gender identityIdentifies as female gender (finding)[facility] Sexual OrientationMetrohealth [facility] Start: 91-29-3264Vstrkno CommentAlcohol: 1-2 drinks occasionally. Caffeine: sodaNOMS HealthcareHow often do you have a drink containing alcohol?Monthly or lessSelect Medical [facility] SystemHow many standard drinks containing alcohol do you have on a typical day?1 or 2PCentral [facility] Surgical [facility] Health SystemHow often do you have 6 or more drinks on 1 occasion?NeverAshtabula General Hospital Medical Equipment Procedure CodeEquipment CodeEquipment Original TextEquipment IdentifierDates Anchors, 5.5 Non Punching - [id number]: 70-78-7662Lauomeu, 5.5 Non Punching - [id number]: 07-07-2023 Functional Status YjqoIycophorrlWpuqroRbtilash86-98-0652Sjoib score [AUDIT-C]1 02/23/2025 2:34 PM EDT Radha Cloud, [facility]05-19-2025Functional StatusN/Dahlia [facility] BaltimoreZjuail15-77-5390Axcktyydpw StatusN/AExecutive [facility]rology of [facility]03-05-2024Are you deaf, or do you have serious difficulty hearingNo 07/07/2023 4:30 PM Marcella Muñoz RN [facility]03-05-2024Are you blind, or do you have serious difficulty seeing, even when wearing glassesNo 07/07/2023 4:30 PM Marcella Muñoz RN [facility]03-05-2024Do you have serious difficulty walking or climbing stairsNo 07/07/2023 4:30 PM Marcella Muñoz RN [facility]03-05-2024Do you have difficulty dressing or bathingNo 07/07/2023 4:30 PM Marcella Muñoz RN [facility] OhioBpayck72-95-0846Tciqykd of a physical, mental, or emotional condition, do you have difficulty doing errands alone such as visiting a physician's office or shoppingNo 07/07/2023 4:30 PM Marcella Muñzo RN [facility] HealthUwrfyc54-04-0072Wyucpknaza StatusN/AExecutive [facility] of [facility] Mental Status QgynYoopjaypheTfuvosKdowkunw83-55-9604Aeweymy of a physical, mental, or emotional condition, do you have serious difficulty concentrating, remembering, or making decisionsNo 07/07/2023 4:30 PM Marcella Muñoz RN [facility] Clinical Notes 09-26-2021 to 03-06-2025 Note Date & LklhVkblRfrvyblf94-16-4468 Miscellaneous Notes* Telephone Encounter - Sonya Baker RN - 03/06/2025 9:47 AM EST Event Monitor placed per 02/23/25 OV with RBP. Alert strip faxed. Awaiting scan to chart to [facility]. * Telephone Encounter - Sonya Baker [...] her testing. She is set up with J 05/01/25 * Telephone Encounter - Jocelynn Houston MD - 03/06/2025 9:47 AM EST Nothing [...] we will reach out. documented in this encounterAshtabula General Hospital11-03-2025 Telephone encounter Note* Telephone Encounter - Sonya Baker RN - 03/06/2025 9:47 AM EST Event Monitor placed per 02/23/25 OV with [facility]. Alert strip faxed. Awaiting scan to chart to [facility]. [facility]11-03-2025 Telephone encounter Note* Telephone Encounter - Sonya Baker RN - [...] She is set up with JZL 05/01/25 [facility]11-03-2025 Telephone encounter Note* Telephone Encounter - Jocelynn Houston MD - 03/06/2025 9:47 AM EST Nothing major at this point, continue with plans to see electrophysiology [facility] Tackle Grab Hfmxud04-50-2473 Telephone encounter Note* Telephone Encounter - Sonya Baker RN - [...] before its completed we will reach out. [facility] T[employer] Grab Qkutql88-45-6998 History of Present illness Narrative* Jocelynn Houston MD - 02/23/2025 2:45 PM EDT Bettie Burns Date of visit: 02/23/2025 Date of : 1945 Age: 79 y.o. Patient Active Problem List Diagnosis Paroxysmal atrial fibrillation (CMS-HCC) Hypertension SOB (shortness of breath) Dyspnea Palpitations Abnormal findings diagnostic imaging of heart and coronary circulation Bradycardia Allergies Allergen Reactions Adhesive Other reaction(s): Blister Morphine Hives Penicillin G Benzathin,Procain Rofecoxib Sulfadiazine Zolpidem Codeine Itching and Rash With all narcotics except Demerol Levaquin [Levofloxacin] Itching and Rash Lioresal [Baclofen] Itching and Rash Penicillins Rash and Hives Ultram [Tramadol] Itching Vicodin [Hydrocodone-Acetaminophen] Itching and Rash Current Outpatient Medications Medication Sig Dispense Refill ELIQUIS 5 mg tablet TAKE 1 TABLET TWICE A DAY (NEED ALL ANNUAL LABS DRAWN FOR FURTHER REFILLS, 08/10/24) 180 tablet 3 flecainide (TAMBOCOR) 50 mg tablet TAKE 1 TABLET IN THE MORNING AND 1 TABLET BEFORE BEDTIME 180 tablet 3 hydroCHLOROthiazide (HYDRODIURIL) 25 mg tablet TAKE 1 TABLET DAILY 90 tablet 2 lisinopriL (PRINIVIL,ZESTRIL) 20 mg tablet Take 1 tablet (20 mg total) by mouth in the morning. NON FORMULARY Med Name:Neuveria vitamin 1 qd omeprazole (PriLOSEC) 20 mg capsule Take 1 capsule (20 mg total) by mouth in the morning. potassium chloride (K-TAB,KLOR-CON) 10 MEQ CR tablet TAKE 1 TABLET IN THE MORNING 90 tablet 3 trospium (SANCTURA) 20 mg tablet Take 1 tablet (20 mg total) by mouth in the morning and 1 tablet (20 mg total) before bedtime. metoprolol succinate XL (TOPROL XL) 25 mg 24 hr tablet Take 0.5 tablets (12.5 mg total) by mouth inthe morning. 15 tablet 11 naproxen sodium (ALEVE) 220 mg tablet Take 1 tablet (220 mg total) by mouth as needed for pain. vitamins A,C,Q-tyen-mefjdr (ICAPS AREDS) 4,296 mcg-226 mg-90 mg capsule Take 1 capsule by mouth in the morning and 1 capsule before bedtime. No current facility-administered medications for this visit. Chief Complaint Patient presents with Follow-up 5MO F/U-L/S EKK-ABNORMAL EKG 01/29 [facility]PT DID NOT WANT TO SPEAKTO A NURSE & WANTED TO KEEP THIS APPT AFTER TALKING W/PCP History of Present Illness 79-year-old female history of paroxysmal symptomatic atrial fibrillation, EP started flecainide 50 b.I.d. August 2023, has been on atenolol as well since then. Nonobstructive coronary disease catheterization 2021 Echo with structurally normal heart She has been experiencing shortness of breath dyspnea on exertion and fatigue She had 1 episode where she was briefly unresponsive, essentially passed out from exhaustion, but this was blamed on a urinary tract infection when she was out of town, she received antibiotics and felt better EKG with incomplete right bundle-branch block RI prolongation left axis deviation She remains on flecainide and atenolol 77 Past Medical History: Diagnosis Date [place] hx of Allergic Allergic to certain medications Arrhythmia 12/2016 ATRIAL FIBRILLATION Arthritis Back pain Chronic Nerve ablation 07/12/19 Breast cancer [place] 11/14/2015 LEFT Cataract 02/2019 Removed 03/2019 COVID-19 [...] by Amber Quiñonez MD at [facility] (EP) APPENDECTOMY 1997 ARM SURGERY Both shoulders rotator cuff repair ARTHROSCOPY REPAIR ROTATOR CUFF SHOULDER Right 05/16/2020 Performed by Melchor Rivera DO at [facility] ARTHROSCOPY SHOULDER Right 05/16/2020 Performed by Melchor Rivera DO at [facility] BREAST BIOPSY Left 2016 2016 BREAST LUMPECTOMY Left 11/14/2015 WITH RADIATION BREAST SURGERY Left 2016 lumpectomy CATARACT EXTRACTION CHOLECYSTECTOMY 2000 COLONOSCOPY 2018 Will not need one again Coronary angiogram and left ventricular gram/pressure N/A 08/08/2021 Performed by Bertram Lal MD at [facility] CARDIAC CATH LABS EGD 2017 [...] Types: Cigarettes Quit date: 05/06/1989 Years since quittin.8 Smokeless tobacco: Never Tobacco comments: quit in 1989 Vaping Use Vaping status: Never Used Substance and Sexual Activity Alcohol use: Yes Comment: social Drug use: No Sexual activity: Defer Other Topics Concern Caffeine Use Yes Comment: 05/05 cup Social History Narrative Not on file Social Drivers of Health Financial Resource Strain: Not on file Food Insecurity: No Food Insecurity (02/23/2025) Hunger Screening Food Insecurity - Worry: Never True Food Insecurity - Inability: Never True Transportation Needs: No Transportation Needs (07/07/2023) Received from [facility] PRAPARE - Transportation Lack of Transportation (Medical): No Lack of Transportation (Non-Medical): No Physical Activity: Not on file Stress: Not on file Social Connections: Not on file Interpersonal Safety: Not on file Housing Instability: Low Risk (07/07/2023) Received from [facility] Housing Stability Vital Sign Unable to Pay for Housing in the Last Year: No Number of Places Lived in the Last Year: 1 Unstable Housing in the Last Year: No Review of Systems Review of Systems Constitutional: Positive for malaise/fatigue. HENT: Negative. Eyes: Negative. Cardiovascular: Positive for syncope. Respiratory: Positive for shortness of breath. Endocrine: Negative. Hematologic/Lymphatic: Negative. Skin: Negative. Musculoskeletal: Positive for arthritis. Gastrointestinal: Negative. Genitourinary: Positive for hematuria. Psychiatric/Behavioral: Negative. Allergic/Immunologic: Positive for environmental allergies. [...] mood, memory and judgement. VITAL SIGNS: BP 130/80 Pulse 58 Ht 165.1 cm (5' 5 ) Wt 79.8 kg (176 lb) SpO2 97% BMI 29.29 kg/m Orders Placed or Reconciled This Encounter Medications metoprolol succinate XL (TOPROL XL) 25 mg 24 hr tablet Sig: Take 0.5 tablets (12.5 mg total) by mouth in the morning. Dispense: 15 tablet Refill: 11 Medications Discontinued During This Encounter Medication Reason atenoloL (TENORMIN) 50 mg tablet IMPRESSIONS/PLAN 1. SOB (shortness of breath) - ECG, [facility] - [place], [place]; Future - Event Monitor (In Office); Future 2. Syncope, unspecified syncope type - ECG, Hospital Report Scan - [facility] - Electrophysiology - [place], [place]; Future 3. Bradycardia - Event Monitor (In Office); Future 4. Paroxysmal atrial fibrillation ([facility] Impression Symptomatic bradycardia, conduction system disease indicating [...] depending on the results of her testing. TODAYS ORDERS Orders Placed This Encounter Procedures [facility] - Electrophysiology - [place], [place] Event Monitor (In Office) ECG, Hospital Report Scan FOLLOW UP Return in about 6 months (around 08/24/2025). PCP: ELLIOT STARKS MD Referring Physician: Elliot Starks MD [address] [place] [address] documented in this encounterAshtabula [facility] Hospital10-22-2025 Miscellaneous Notes* Telephone Encounter - Radha Cloud CMA - 02/22/2025 9:21 AM EDT Called patient to remind them to bring their most current copy of their medication list with them to their appt. Patient verbalizes understanding. documented in this encounterAshtabula [facility] Hospital10-22-2025 Telephone encounter Note* Telephone Encounter - Radha Cloud CMA - 02/22/2025 9:21 AM EDT Called patient to remind them to bring their most current copy of their medication list with them to their appt. Patient verbalizes understanding. [facility] Hospital Discharge instructions Patient Education 02/14/2025 11:59:43 Urinary Tract Infection, Adult Urinary Tract Infection, Adult A urinary tract infection (UTI) is an infection of any part of the urinary tract. The urinary tractincludes the kidneys, ureters, bladder, and urethra. These organs make, store, and get rid of urinein the body. An upper UTI affects the ureters and kidneys. A lower UTI affects the bladder and urethra. What are the causes? Most urinary tract infections are caused by bacteria in your genital area around your urethra, where urine leaves your body. These bacteria grow and cause inflammation of your urinary tract. What increases the risk? You are more likely to develop this condition if: You have a urinary catheter that stays in place. You are not able to control when you urinate or have a bowel movement (incontinence). You are female and you: ?Use a spermicide or diaphragm for control. ?Have low estrogen levels. ?Are . You have certain genes that increase your risk. You are sexually active. You take antibiotic medicines. You have a condition that causes your flow of urine to slow down, such as: ?An enlarged prostate, if you are male. ?Blockage in your urethra. ?A kidney stone. ?A nerve condition that affects your bladder control (neurogenic bladder). ?Not getting enough to drink, or not urinating often. You have certain medical conditions, such as: ?Diabetes. ?A weak disease-fighting system (immunesystem). ?Sickle cell disease. ?Gout. ?Spinal cord injury. What are the signs or symptoms? Symptoms of this condition include: Needing to urinate right away (urgency). Frequent urination. This may include small amounts of urine each time you urinate. Pain or burning with urination. Blood in the urine. Urine that smells bad or unusual. Trouble urinating. Cloudy urine. Vaginal discharge, if you are female. Pain in the abdomen or the lower back. You may also have: Vomiting or a decreased appetite. Confusion. Irritability or tiredness. A fever or chills. Diarrhea. The first symptom in older adults may be confusion. In some cases, they may not have any symptoms until the infection has worsened. How is this diagnosed? This condition is diagnosed based on your medical history and a physical exam. You may also have other tests, including: Urine tests. Blood tests. Tests for STIs (sexually transmitted infections). If you have had more than one UTI, a cystoscopy or imaging studies may be done to determine the cause of the infections. How is this treated? Treatment for this condition includes: Antibiotic medicine. Uiti-mtw-nvspxkr medicines to treat discomfort. Drinking enough water to stay hydrated. If you have frequent infections or have other conditions such as a kidney stone, you may need to see a health care provider who specializes in the urinary tract (urologist). In rare cases, urinary tract infections can cause sepsis. Sepsis is a life- threatening condition that occurs when the body responds to an infection. Sepsis is treated in the hospital with IV antibiotics, fluids, and other medicines. Follow these instructions at home: Medicines Take kzbh-lwr-igtilbb and prescription medicines only as told by your health care provider. If you were prescribed an antibiotic medicine, take it as told by your health care provider. Do notstop using the antibiotic even if you start to feel better. General instructions Make sure you: ?Empty your bladder often and completely. Do not hold urine for long periods of time. ?Empty your bladder after sex. ?Wipe from front to back after urinating or having a bowel movement if you are female. Use each tissue only one time when you wipe. Drink enough fluid to keep your urine pale yellow. Keep all follow-up visits. This is important. Contact a health care provider if: Your symptoms do not get better after 1 2 days. Your symptoms go away and then return. Get help right away if: You have severe pain in your back or your lower abdomen. You have a fever or chills. You have nausea or vomiting. Summary A urinary tract infection (UTI) is an infection of any part of the urinary tract, which includes the kidneys, ureters, bladder, and urethra. Most urinary tract infections are caused by bacteria in your genital area. Treatment for this condition often includes antibiotic medicines. If you were prescribed an antibiotic medicine, take it as told by your health care provider. Do notstop using the antibiotic even if you start to feel better. Keep all follow-up visits. This is important. This information is not intended to replace advice given to you by your health care provider. Make sure you discuss any questions you have with your health care provider. Document Revised: 11/25/2020 Document Reviewed: 11/30/2020 [employer] Patient Education 2023 [employer]. 02/14/2025 11:59:41 Overactive Bladder, Adult Overactive Bladder, Adult Overactive [...] your health care provider. General instructions Take qasn-trl-swgwqwi and prescription medicines only as told by [...] provider. Document Revised: 01/07/2021 Document Reviewed: 01/07/2021 [employer] Patient Education 2023 [employer]. Follow Up Care 01/25/2025 08:45:22 With:Maria E Osman PA-C, URL Address: When:Within 2 Month(s) Comments:w/ FLORES [facility] 10-14-2025 NotePatient Education Obstetrics and Gynecology Urinary Tract Infection, Adult A urinary tract infection (UTI) is an infection of any part of the urinary tract. The urinary tractincludes the kidneys, ureters, bladder, and urethra. These organs make, store, and get rid of urinein the body. An upper UTI affects the ureters and kidneys. A lower UTI affects the bladder and urethra. What are the causes? Most urinary tract infections are caused by bacteria in your genital area around your urethra, where urine leaves your body. These bacteria grow and cause inflammation of your urinary tract. What increases the risk? You are more likely to develop this condition if: ??? You have a urinary catheter that stays in place. ??? You are not able to control when you urinate or have a bowel movement (incontinence). ??? You are female and you: ? Use a spermicide or diaphragm for control. ? Have low estrogen levels. ? Are . ??? You have certain genes that increase your risk. ??? You are sexually active. ??? You take antibiotic medicines. ??? You have a condition that causes your flow of urine to slow down, such as: ? An enlarged prostate, if you are male. ? Blockage in your urethra. ? A kidney stone. ? A nerve condition that affects your bladder control (neurogenic bladder). ? Not getting enough to drink, or not urinating often. ??? You have certain medical conditions, such as: ? Diabetes. ? A weak disease-fighting system (immunesystem). ? Sickle cell disease. ? Gout. ? Spinal cord injury. What are the signs or symptoms? Symptoms of this condition include: ??? Needing to urinate right away (urgency). ??? Frequent urination. This may include small amounts of urine each time you urinate. ??? Pain or burning with urination. ??? Blood in the urine. ??? Urine that smells bad or unusual. ??? Trouble urinating. ??? Cloudy urine. ??? Vaginal discharge, if you are female. ??? Pain in the abdomen or the lower back. You may also have: ??? Vomiting or a decreased appetite. ??? Confusion. ??? Irritability or tiredness. ??? A fever or chills. ??? Diarrhea. The first symptom in older adults may be confusion. In some cases, they may not have any symptoms until the infection has worsened. How is this diagnosed? This condition is diagnosed based on your medical history and a physical exam. You may also have other tests, including: ??? Urine tests. ??? Blood tests. ??? Tests for STIs (sexually transmitted infections). If you have had more than one UTI, a cystoscopy or imaging studies may be done to determine the cause of the infections. How is this treated? Treatment for this condition includes: ??? Antibiotic medicine. ??? Uryg-whs-bynpjng medicines to treat discomfort. ??? Drinking enough water to stay hydrated. If you have frequent infections or have other conditions such as a kidney stone, you may need to see a health care provider who specializes in the urinary tract (urologist). In rare cases, urinary tract infections can cause sepsis. Sepsis is a life- threatening condition that occurs when the body responds to an infection. Sepsis is treated in the hospital with IV antibiotics, fluids, and other medicines. Follow these instructions at home: Medicines ??? Take zddc-sms-epepuin and prescription medicines only as told by your health care provider. ??? If you were prescribed an antibiotic medicine, take it as told by your health care provider. Donot stop using the antibiotic even if you start to feel better. General instructions ??? Make sure you: ? Empty your bladder often and completely. Do not hold urine for long periods of time. ? Empty your bladder after sex. ? Wipe from front to back after urinating or having a bowel movement if you are female. Use each tissue only one time when you wipe. ??? Drink enough fluid to keep your urine pale yellow. ??? Keep all follow-up visits. This is important. Contact a health care provider if: ??? Your symptoms do not get better after 1?2 days. ??? Your symptoms go away and then return. Get help right away if: ??? You have severe pain in your back or your lower abdomen. ??? You have a fever or chills. ??? You have nausea or vomiting. Summary ??? A urinary tract infection (UTI) is an infection of any part of the urinary tract, which includes the kidneys, ureters, bladder, and urethra. ??? Most urinary tract infections are caused by bacteria in your genital area. ??? Treatment for this condition often includes antibiotic medicines. ??? If you were prescribed an antibiotic medicine, take it as told by your health care provider. Donot stop using the antibiotic even if you start to feel better. ??? Keep all follow-up visits. This is important. This information is not intended to replace advice given to you by your health care provider. Make sure you di (more content not included)...[facility]09-30-2025 Miscellaneous Notes* Telephone Encounter - Debbie Kerr RN - 01/31/2025 12:23 AM EDT OV 11/08/24 CMP 11/08/24 Mag 11/08/24 documented in this encounterSam[facility] [id number] Telephone encounter Note* Telephone Encounter - Debbie Kerr RN - 01/31/2025 12:23 AM EDT OV 11/08/24 CMP 11/08/24 Mag 7/8/25 elect [facility]09-24-2025 Hospital Discharge instructions Patient Education 01/25/2025 11:49:00 Urinary Incontinence Urinary Incontinence Urinary incontinence refers to a condition in which a person is unable to control where and when topass urine. A person with this condition will urinate involuntarily. This means that the person urinates when he or she does not mean to. What are the causes? This condition may be caused by: Medicines. Infections. Constipation. Overactive bladder muscles. Weak bladder muscles. Weak pelvic floor muscles. These muscles provide support for the bladder, intestine, and, in women,the uterus. Enlarged prostate in men. The prostate [...] a small amount, or constantly dribbling urine (overflowincontinence). Urinating because you cannot get to the [...] fiber include beans, whole grains, and fresh fruitsand vegetables. Behavioral changes, such as: ?Pelvic floor [...] nerve stimulation). ?For women, using a medical care manager to prevent urine leaks. This is a small, tampon-like, disposabledevice that is inserted into the urethra. ?Injecting [...] right after experiencing incontinence. General instructions Take fgbm-nda-merjeru and prescription medicines only as told by [...] important. Where to find more information National [place] of Diabetes and Digestive and Kidney Diseases: www.niddk.nih.gov [place] [employer]: www.urologyhealth.org Contact a health care [...] is unable to control where and when topass urine. This condition may be caused by medicines, infection, weak bladder muscles, weak pelvic floor muscles, enlargement of the prostate (in men), or surgery. Factors such as older age, obesity, and childbirth, menopause, neurological diseases, andchronic coughing may increase your risk for developing [...] provider. Document Revised: 11/23/2020 Document Reviewed: 11/23/2020 [employer] Patient Education 2023 [employer]. 01/25/2025 11:48:59 Overactive Bladder, Adult Overactive Bladder, [...] your health care provider. General instructions Take ilez-kdo-epiddhq and prescription medicines only as told by [...] provider. Document Revised: 01/07/2021 Document Reviewed: 01/07/2021 [employer] Patient Education 2023 [employer]. Follow Up Care 10/26/2024 08:31:24 With:Maria E Osamn PA-C, URL Address: When:Within 2 Month(s) Comments:w/ FLORES [facility] 09-24-2025 NotePatient Education Obstetrics and Gynecology Overactive Bladder, [...] health care provider. General instructions ??? Take nrpx-hhd-xplbibi and prescription medicines only as told by [...] you drink, and whe (more content not included)...[facility]09-16-2025 Miscellaneous Notes* Telephone Encounter - Jacinta Neri RN - 01/17/2025 12:35 AM EDT Last OV 11/08/24 EKG 11/08/24 CMP/Mg 11/08/24 documented in this encounterAshtabula [facility] Hospital09-16-2025 Telephone encounter Note* Telephone Encounter - Jacinta Neri RN - 01/17/2025 12:35 AM EDT Last OV 11/08/24 EKG 11/08/24 CMP/Mg 11/08/24 [facility]08-26-[facility] History of Present illness Narrative* Radha Espinal MD - 12/27/2024 10:00 AM EDT [...] Right Popliteal Fossa, Right Thigh - Anterior Olivarez and brown stuck on verrucous scaly papule [...] limited to risks of scarring, darker or well drill operator cable tool pigmentary changes, recurrence, incomplete removal and infection. [...] rec pt schedule FBSE documented in this encounterSelect Specialty [id number] Miscellaneous Notes* Telephone Encounter - Angelica Kelly CMA - 12/27/2024 1:36 AM EDT Theresa: 11/08/2024 documented in this encounterAshtabula [facility] Hospital08-26-2025 Telephone encounter Note* Telephone Encounter - Angelica Kelly CMA - 12/27/2024 1:36 AM EDT Theresa: 11/08/2024 [facility]25 NoteHNO ID: [id number] Author: HARSH BARCENAS RT(R) Service: ? Author [...] PATIENT PRESENTS WITH AN IMPLANTABLE OR ATTACHED BLADE GRINDER: No RADIOLOGY DEPARTMENT: General X-ray: Exam(s) Completed: Chest X-Ray PERIPHERAL IV DATA: Not applicable SIGNED BY: RT Magy(R) December 18, 2024 8:31 [facility] [id number] Evaluation note* Diagnosis Onset Date Resolution Status Admit Date Dysuria acuteJuly 2024 8:53amCKD stage 3a, GFR 45-59 ml/minacuteAugust 2024 10:23amHypokalemiaacuteAugust 2024 10:23am [facility] Work Phone: 1(954) 848-793007-29-2025 Evaluation note* Diagnosis Onset Date Resolution Status Admit Date Dysuria acuteJuly 2024 8:53amCKD stage 3a, GFR 45-59 ml/minacuteAugust 2024 10:23amDysuriaacuteAugust 2024 10:23amExudative age-related macular degeneration, bilateral, stage unspecifiedacuteAugust 2024 10:23am HypokalemiaacuteAugust 2024 10:23amParoxysmal atrial fibrillationacute December 29, 2024 10:23amSyncopal episodesacuteAugust 2024 10:23am HypokalemiaacuteOctober 2024 8:17amSyncopal episodesacuteOctober 2024 8:17am [facility] Work Phone: 1(272) 533-215907-29-2025 Evaluation note* Diagnosis Onset Date Resolution Status Admit Date Dysuria acuteJuly 2024 8:53amCKD stage 3a, GFR 45-59 ml/minacuteAugust 2024 10:23amDysuriaacuteAugust 2024 10:23amExudative age-related macular degeneration, bilateral, stage unspecifiedacuteAugus2024 10:23am HypokalemiaacuteAugust 2024 10:23amParoxysmal atrial fibrillationacute [place] 2024 10:23amSyncopal episodesacuteAugus2024 10:23am Essential hypertensionacuteOct2024 8:17amHypokalemiaacuteOctober 2024 8:17amInsomniaacuteOctober 2024 8:17amSyncopal episodesacuteOctober 2024 8:17am [facility] Work Phone: 1(319) 758-644407-24-2025 Miscellaneous Notes* Telephone Encounter - Leslie Negron RN - 11/24/2024 12:24 AM EDT Ov-11/08/24 Cmp-11/08/24 documented in this encounterAshtabula General Hospital07-24-2025 Telephone encounter Note* Telephone Encounter - Leslie Negron RN - 11/24/2024 12:24 AM EDT Ov-11/08/24 Cmp-11/08/24 [facility]2025 History of Present illness Narrative* Radha Mart APRN-ENROLLMENT MANAGEMENT DIRECTOR - 11/08/2024 9:00 AM EDT Bettie Carly [...] tablet (20 mg total) before bedtime. vitamins A,C,J-xahj-vrqcpj (ICAPS AREDS) 4,296 mcg-226 mg-90 mg capsule [...] office. Past Medical History: Diagnosis [place] hx of Allergic Allergic to certain medications Arrhythmia 12/2016 ATRIAL FIBRILLATION Arthritis Back pain Chronic Nerve ablation 07/12/19 Breast [place] 11/14/2015 LEFT Cataract 02/2019 Removed 03/2019 COVID-19 [...] by Amber Quiñonez MD at [facility] () APPENDECTOMY 1997 ARM SURGERY Both shoulders rotator cuff repair ARTHROSCOPY REPAIR ROTATOR CUFF SHOULDER Right 05/16/2020 Performed by Melchro Rivera DO at [facility] ARTHROSCOPY SHOULDER Right 05/16/2020 Performed by Melchor Rivera DO at [facility] BREAST BIOPSY Left 2016 2016 BREAST LUMPECTOMY Left 11/14/2015 WITH RADIATION BREAST SURGERY Left 2016 lumpectomy CATARACT EXTRACTION CHOLECYSTECTOMY 2000 COLONOSCOPY 2018 Will not need one again Coronary angiogram and left ventricular gram/pressure N/A 08/08/2021 Performed by Bertram Lal MD at [facility] CARDIAC CATH LABS EGD 2017 [...] Needs (07/07/2023) Received from [facility] PRAPARE - Transportation Lack of Transportation (Medical): No Lack of Transportation (Non-Medical): No Physical Activity: Not on file Stress: Not on file Social Connections: Not on file Interpersonal Safety: Not on file Housing Instability: Low Risk (07/07/2023) Received from [facility] Housing Stability Vital Sign Unable to [...] STARKS MD Referring Physician: Elliot Starks MD [address] [place] [address] MEDINA Landry 11/08/24 0926 documented in this encounterAshtabula [facility] Hospital2025 Instructions* Patient Instructions* MEDINA Landry - 11/08/2024 9:00 AM EDT BP and HR are well controlled. Continue cardiac medications. Recommend follow up in one year. Please call the office if you develop new or worsening symptoms and we will see you sooner. documented in this encounterAshtabula General Hospital2025 Miscellaneous Notes* Telephone Encounter - Kadie Adler RN - 11/08/2024 12:18 AM EDT OV 7/8/25 CMP, CBC 11/08/24 documented in this encounterAshtabula [facility] Hospital2025 Telephone encounter Note* Telephone Encounter - Kadie Adler RN - 11/08/2024 12:18 AM EDT OV 11/08/24 CMP, CBC 11/08/24 [facility]07-01-2025 Miscellaneous Notes* Telephone Encounter - Gabrielle Moffett RN - 11/01/2024 12:27 AM EDT Overdue labs. Pt has been notified. Ov scheduled 11/08 documented in this encounterAshtabula [facility] Hospital07-01-2025 Telephone encounter Note* Telephone Encounter - Gabrielle Moffett RN - 11/01/2024 12:27 AM EDT Overdue labs. Pt has been notified. Ov scheduled 11/08 [facility]-19-20[facility] Evaluation + Plan noteExtracted from:Title:[facility] NoteAuthor:Axel Miller MDDate:09/19/24 Impression and Plan Assessment and Plan: Diagnosis: Vaginal atrophy (HQD93-KL N95.2, Discharge, Medical), Recurrent UTI(OHU32-RX N39.0, Discharge, Medical), Mixed incontinence (AQK44-ZI N39.46, Discharge, Medical). 79-year-old female with a [...] scan confirmed passage. Increase fluids recommended Extracted from:Title:Preoperative H&P: EUAuthor:Paul VILLEGAS, Axel PalaciosDate:09/19/24 Impression and Plan Impression: cystoscopy and botox 100 units for mixed incontinence Plan: Proceed with planned surgery per clinic note, risks/benefits previously discussed and documented Future Appointments Appointment Date:10/26/2024 08:00:00 AM Scheduled Provider:Maria E Osman PA-C Location:[facility] Appointment Type:URO Office Visit [facility] 05-19-2025 Hospital Discharge instructions Follow Up Care 09/19/2024 08:36:00 With:Maria E Osman PA-C, URL Address: When:Within 3 Month(s) Comments:w/ PVR [facility] 05-19-2025 Hospital Discharge instructions Patient [...] follow up in 1 month with PVR With:Axel Miller Address:Unknown When: Unknown [facility] 05-19-2025 NoteHistory and Physical Patient: BETTIE BURNS Age: 79 years Sex: Female : 1945 Associated Diagnoses: None Author: Paul VILLEGAS, Axel Palacios Preoperative Information Indication for procedure and [...] 1 month, then 2x a week afterwards, [facility]/pharmacy #[id number], 165, cm, 06/22/24 13:05:00 EST, Height/Length Dosing, 80.7, kg, 06/22/24 13:05:00 EST, Weight Dosing... Keflex 500 mg Cap: 500 mg = 1 cap(s), Oral, q12hr, X 7 day(s), # 14 cap(s), Refills(s) 0, Pharmacy:[facility]/pharmacy #[id number], 165, cm, 06/22/24 13:05:00 EST, Height/Length Dosing, 80.7, kg, 06/22/24 13:05:00 EST, Weight Dosing trospium 60 mg oral capsule, extended release: 60 mg = 1 cap(s), Oral, Bedtime, # 90 tab(s), Refills(s) 3, Pharmacy: [facility], 165, cm, 05/27/23 8:54:00 EST, Height/Length Dosing, 77.5, kg, 05/27/23 8:54:00 EST, Weight Dosing Documented Medications Documented Aleve: Refills(s) 0 BACLOFEN 10 MG TABLET: BACLOFEN 10 MG TABLET Eliquis 5 mg oral tablet: Refills(s) 0 Neuveria Vitamin OTC: Neuveria Vitamin OTC Potassium Chloride (Ljo-Zaew-Wkc 10) 10 mEq oral tablet, extended release: [...] list: All Problems Anticoagulated / SNOMED CT 459753830 / Confirmed Chronic atrial fibrillation / SNOMED CT 4022783640 / Confirmed Eczema / SNOMED CT 34346487 / Confirmed Former smoker / SNOMED CT 17135566 / Confirmed Frequent UTI / SNOMED CT 037320286 / Confirmed History of breast cancer / SNOMED CT 0805483123 / Confirmed History of malignant neoplasm of breast / SNOMED CT 2625197068 / Confirmed Hypertensive disorder / SNOMED CT 5439349236 / Confirmed Microscopic hematuria / SNOMED CT 519702425 / Confirmed Mixed incontinence / SNOMED CT 88035382 / Confirmed Rectocele / SNOMED CT 1956796271 / Confirmed Histories Past Medical History: No active or resolved past medical history items have been selected or recorded. Family History: Entire family history is negative. Procedure history: Cholecystectomy (76345380). Hip replacement (0348852764). Lumpectomy of left breast (1059360476). Rotator cuff (98212525). ROSA - Total abdominal hysterectomy (183791760). Appendectomy (451570698). Cataracts (0500813746). Cardiac ablation system (3690047652). Social History Social & Psychosocial Habits Tobacco [...] per clinic note, risks/benefits previously discussed and documentedMercy Memorial HospitalComment on above:Result Comment: Electronically Signed By: Paul VILLEGAS, Axel Villavicencio.cassandra\Date and Time Signed: 09/19/24 08:[id number] NoteProgress Note-Physician Patient: BETTIE BURNS Age: 79 years Sex: Female : 1945 Associated Diagnoses: None Author: Paul VILLEGAS, Axel Palacios Health Status Allergies: Allergic Reactions (Selected) [...] 1 month, then 2x a week afterwards, [facility]/pharmacy #[id number], 165, cm, 06/22/24 13:05:00 EST, Height/Length Dosing, 80.7, kg, 06/22/24 13:05:00 EST, Weight Dosing... Keflex 500 mg Cap: 500 mg = 1 cap(s), Oral, q12hr, X 7 day(s), # 14 cap(s), Refills(s) 0, Pharmacy:[facility]/pharmacy #[id number], 165, cm, 06/22/24 13:05:00 EST, Height/Length Dosing, 80.7, kg, 06/22/24 13:05:00 EST, Weight Dosing trospium 60 mg oral capsule, extended release: 60 mg = 1 cap(s), Oral, Bedtime, # 90 tab(s), Refills(s) 3, Pharmacy: [facility], 165, cm, 05/27/23 8:54:00 EST, Height/Length Dosing, 77.5, kg, 05/27/23 8:54:00 EST, Weight Dosing Documented Medications Documented Aleve: Refills(s) 0 BACLOFEN 10 MG TABLET: BACLOFEN 10 MG TABLET Eliquis 5 mg oral tablet: Refills(s) 0 Neuveria Vitamin OTC: Neuveria Vitamin OTC Potassium Chloride (Mzf-Epjv-Onb 10) 10 mEq oral tablet, extended release: [...] Plan Assessment and Plan: Diagnosis: Vaginal atrophy (ZEA78-HZ N95.2, Discharge, Medical), Recurrent UTI(WMQ16-SA N39.0, Discharge, Medical), Mixed incontinence (JHL79-VX N39.46, Discharge, Medical). 79-year-old female with a [...] up CT scan confirmed passage. Increase fluids recommendedMercy Memorial HospitalComment on above:Result Comment: Electronically Signed By: Paul VILLEGAS, Axel Villavicencio.br\Date and Time Signed: 09/19/24 08:[id number] Note Patient Education Cystoscopy with Botox injection [...] you have a fever over 100 degrees. ???[facility]04-02-2025 Miscellaneous Notes* Telephone Encounter - Leslie Negron RN - 08/03/2024 12:21 AM EDT Ov-11/26/23 Cmp and mg -07/15/23 New cmp and mg order placed and letter sent 08/04/24 documented in this encounterAshtabula [facility] Hospital04-02-2025 Telephone encounter Note* Telephone Encounter - Leslie Negron RN - 08/03/2024 12:21 AM EDT Ov-11/26/23 Cmp and mg -07/15/23 New cmp and mg order placed and letter sent 08/04/24 [facility]Algia[facility] Pharm[facility] Hawthorn [id number] Miscellaneous Notes* Telephone Encounter - Sander Pollack RN - 07/27/2024 1:57 PM EDT P/c from pt requesting refills to [facility]. OV 11/26/23 07/14/24 MAG, CMP, CBC EKG 08/12/23 documented in this encounterAshtabula General Hospital03-26-2025 Telephone encounter Note* Telephone Encounter - Sander Pollack RN - 07/27/2024 1:57 PM EDT P/c from pt requesting refills to [facility]. OV 11/26/23 07/14/24 MAG, CMP, CBC EKG 08/12/23 [facility]03-13-2025 History of Present illness Narrative* Svitlana Hayden - 07/14/2024 2:00 PM EDT Ortho Nurse - Established Patient Intake Room#: 5 Date: 07/14/2024 1:15 PM Patient: Bettie Burns MR#: [id number] : 1945 Age: 79 y.o. 1yr R [...] TENDON REPAIR Right 07/07/2023 Laterality: Right; Surgeon: Yesi Ohara MD; Location: [facility] REVISION ARTHROPLASTY HIP BOTH ACETABULAR & FEMORAL COMPONENTS Right 07/07/2023 Laterality: Right; Surgeon: Yesi Ohara MD; Location: [facility] HIP REPLACEMENT 2021 ABLATION NERVE RADIOFREQUENCY PULSED 09/2018 for a-fib with [employer] APPENDECTOMY BREAST LUMPECTOMY FOOT SURGERY HEART CATHETERIZATION no stents RI ENDOMETRIAL CRYOABLATION W/US & ENDOMETRIAL CR REMOVAL [...] for maintainence, [facility]/pharmacy #[id number], 165, cm, 02/11/23 10:41:00 EDT, Height/Length Dosing, [...] latex, morphine, oxycodone, penicillins, and tramadol. * Matheus Barrera APRN-ENROLLMENT MANAGEMENT DIRECTOR - 07/14/2024 2:00 PM EDT HPI: Patient [...] 07/14/2024 1:15 PM Patient: Bettie Burns MR#: [id number] : 1945 Age: 79 y.o. 1yr R [...] TENDON REPAIR Right 07/07/2023 Laterality: Right; Surgeon: Yesi Ohara MD; Location: [facility] REVISION ARTHROPLASTY HIP BOTH ACETABULAR & FEMORAL COMPONENTS Right 07/07/2023 Laterality: Right; Surgeon: Yesi Ohara MD; Location: [facility] HIP REPLACEMENT 2021 ABLATION NERVE RADIOFREQUENCY PULSED 09/2018 for a-fib with [employer] APPENDECTOMY BREAST LUMPECTOMY FOOT SURGERY HEART CATHETERIZATION no stents RI ENDOMETRIAL CRYOABLATION W/US & ENDOMETRIAL CR REMOVAL [...] oxycodone, penicillins, and tramadol. documented in this encounterVan Wert County Hospital02-27-2025 Miscellaneous Notes* Telephone Encounter - Mami Cifuentes RN - 06/30/2024 12:22 AM EST OV 11/26/2023 documented in this encounterAshtabula General Hospital02-27-2025 Telephone encounter Note* Telephone Encounter - Mami Cifuentes RN - 06/30/2024 12:22 AM EST OV 11/26/2023 [facility]02-19-2025 Hospital Discharge instructions Patient Education 06/22/2024 [...] Follow these instructions at home: Medicines Take fwgu-vjo-khvvoqs and prescription medicines only as told by [...] or the blood stops without treatment. Take auxb-hof-tkqbgkc and prescription medicines only as told by your health care provider. Drink enough fluid to keep your urine pale yellow. This information is not intended to replace advice given to you by your health care provider. Make sure you discuss any questions you have with your health care provider. Document Revised: 12/19/2020 Document Reviewed: 12/19/2020 Pb Patient Education 2023 [employer]. 06/22/2024 15:04:17 Overactive Bladder, Adult Overactive Bladder, [...] your health care provider. General instructions Take jjeb-ire-qxlbvgn and prescription medicines only as told by [...] provider. Document Revised: 01/07/2021 Document Reviewed: 01/07/2021 Endorphin Patient Education 2023 [employer]. Follow Up Care 06/22/2024 10:24:57 With:Paul VILLEGAS, Axel Palacios URL, U[facility] Address: When: Unknown Comments:F/U pending cystoscopy [facility] 02-19-2025 NotePatient Education Obstetrics and [...] health care provider. General instructions ??? Take sdhr-yec-ofsnmxm and prescription medicines only as told by [...] you drink, and whe (more content not included)...[facility]12-28-2024 Evaluation note* Diagnosis Onset Date Resolution Status Admit Date Acute bilateral [facility]itis [facility]:54am [facility] Work Phone: [phone] 286-332512-28-2024 Evaluation note* Diagnosis Onset Date Resolution Status Admit Date Acute bilateral otitis media acuteDecember 2023 9:54amAcute otitis media with effusionacuteJanuary 2024 9:07amInsomniaacuteJanuary 2024 9:07amReaction, situational, acute, to stressacuteJanuary 2024 9:07am [facility] Work Phone: 1(456) 252-499808-31-2024 Miscellaneous Notes* Telephone Encounter - Jacinta Neri [...] >59 ml/min/1.73sq.m 46 Low 56 Low CM Login[facility]07-25-2024 History of Present illness Narrative* Hal Fischer - 11/26/2023 2:00 PM EDT Ortho Nurse - Established Patient Intake Room#: 3 --- Patient presents today for 4 month follow-up of RTHA. Patient states that pain is 2/10today. Patient states that she is improved especially with PT, but is still limping more than she anticipated. Patient has been doing PT at [facility] and this helps, says next week is her last session. Patient states that she is due for nerve block in SI joint at [facility] who she seesregularly, states that she needs approval from Dr. Ohara on this. Date: 11/26/2023 2:25 PM Patient: Bettie Burns MR#: [id number] : 1945 Age: 78 y.o. Referring Physician: [...] TENDON REPAIR Right 07/07/2023 Laterality: Right; Surgeon: Yesi Ohara MD; Location: [facility] REVISION ARTHROPLASTY HIP BOTH ACETABULAR & FEMORAL COMPONENTS Right 07/07/2023 Laterality: Right; Surgeon: Yesi Ohara MD; Location: [facility]IP REPLACEMENT 2021 ABLATION NERVE RADIOFREQUENCY PULSED 09/2018 for a-fib with [employer] APPENDECTOMY BREAST LUMPECTOMY FOOT SURGERY HEART CATHETERIZATION no stents RI ENDOMETRIAL CRYOABLATION W/US & ENDOMETRIAL CR REMOVAL [...] latex, morphine, oxycodone, penicillins, and tramadol. * Yesi Ohara MD - 11/26/2023 2:00 PM EDT [...] anticipated. Patient has been doing PT at [facility] and this helps, says next week is her last session. Patient states that she is due for nerve block in SI joint at [facility] who she seesregularly, states that she needs approval from Dr. Ohara on this. Date: 11/26/2023 2:25 PM Patient: Bettie Burns MR#: [id number] : 1945 Age: 78 y.o. Referring Physician: [...] TENDON REPAIR Right 07/07/2023 Laterality: Right; Surgeon: Yesi Ohara MD; Location: [facility] REVISION ARTHROPLASTY HIP BOTH ACETABULAR & FEMORAL COMPONENTS Right 07/07/2023 Laterality: Right; Surgeon: Yesi Ohara MD; Location: [facility] HIP REPLACEMENT 2021 ABLATION NERVE RADIOFREQUENCY PULSED 09/2018 for a-fib with [employer] [facility] APPENDECTOMY BREAST LUMPECTOMY FOOT SURGERY HEART CATHETERIZATION no stents RI ENDOMETRIAL CRYOABLATION W/US & ENDOMETRIAL CR REMOVAL [...] oxycodone, penicillins, and tramadol. documented in this [facility]07-25-2024 History of Present illness Narrative* Mainor Post [...] Burns was seen in follow-up in the [place] office. Records are reviewed. She is a [...] avoidance. Past Medical History: Diagnosis Date [place] hx of Arrhythmia 12/2016 ATRIAL FIBRILLATION Arthritis Breast cancer [place] 11/14/2015 LEFT COVID-19 03/2020 History of bleeding [...] by Amber Quiñonez MD at [facility] () ARTHROSCOPY REPAIR ROTATOR CUFF SHOULDER Right 05/16/2020 Performed by Melchor Rivera DO at [facility] ARTHROSCOPY SHOULDER Right 05/16/2020 Performed by Melchor Rivera DO at [facility] BREAST BIOPSY Left 2016 BREAST LUMPECTOMY Left 11/14/2015 WITH RADIATION BREAST SURGERY Left 2012 lumpectomy CATARACT EXTRACTION CHOLECYSTECTOMY COLONOSCOPY Coronary angiogram and left ventricular gram/pressure N/A 08/08/2021 Performed by Bertram Lal MD at [facility] CARDIAC CATH LABS EYE SURGERY [...] Needs (07/07/2023) Received from [facility]'s [facility], [facility]'s [facility] PRAPARE - Transportation Lack of Transportation (Medical): No Lack of Transportation (Non-Medical): No Physical Activity: Not on file Stress: Not on file Social Connections: Not on file Interpersonal Safety: Not on file Housing Instability: Low Risk (07/07/2023) Received from [facility]'s [facility], [facility]'s [facility] Housing Stability Vital Sign Unable [...] STARKS MD Referring Physician: Elliot Starks MD [address] [place] [address] documented in this encounterUniversity Hospitals Elyria Medical CenterZiarco Hawthorn [id number] Miscellaneous Notes* Telephone Encounter - Medina Jaramillo MA - 11/25/2023 10:56 AM EDT Called patient to remind them to bring their most current copy of their medication list with them to their appt. Patient verbalizes understanding. documented in this encounterUniversity Hospitals Elyria Medical CenterZiarco Hawthorn [id number] Telephone encounter Note* Telephone Encounter - Medina [...] [facility]05-16-2024 Telephone encounter Note* Telephone Encounter - Ngozi Adams RN - 09/17/2023 1:30 PM EDT Order faxed to [facility] Julio Pt aware. Ngozi Adams RN [facility]05-16-2024 Miscellaneous Notes* Telephone Encounter - Ngozi Adams RN - 09/17/2023 1:30 PM EDT Order faxed to Tore[facility] Julio Pt aware. Ngozi Adams RN * Telephone Encounter - Ngozi Adams RN - 09/17/2023 10:18 AM EDT Pt called to request yearly Mammogram order I have pended order as previously completed Pt requests to fax to Nori Lema [phone] BRM/: please review and sign if agreeable Ngozi Adams RN documented in this encounterClermont County Hospital05-16-2024 Telephone encounter Note * Telephone Encounter - Ngozi Adams RN - 09/17/2023 10:18 AM EDT Pt called to request yearly Mammogram order I have pended order as previously completed Pt requests to fax to Nori Lema [phone] BR/: please review and sign if agreeable Ngozi Adams RN [facility]04-18-2024 History of Present illness Narrative* Evakimi [...] she is interested in Physcial Therapy through [facility]. Date: 08/20/2023 2:38 PM Patient: Bettie Burns MR#: [id number] : 1945 Age: 78 y.o. Referring Physician: [...] TENDON REPAIR Right 07/07/2023 Laterality: Right; Surgeon: Yesi Ohara MD; Location: [facility] REVISION ARTHROPLASTY HIP BOTH ACETABULAR & FEMORAL COMPONENTS Right 07/07/2023 Laterality: Right; Surgeon: Yesi Ohara MD; Location: [facility] HIP REPLACEMENT 2021 ABLATION NERVE RADIOFREQUENCY PULSED 09/2018 for a-fib with [employer] [facility] APPENDECTOMY BREAST LUMPECTOMY FOOT SURGERY HEART CATHETERIZATION no stents RI ENDOMETRIAL CRYOABLATION REMOVAL BILIARY DUCT/GALLBLADDER CALCULI/DEBRIS PERCUTANEOUS [...] for maintainence, [facility]/pharmacy #[id number], 165, cm, 02/11/23 10:41:00 EDT, Height/Length Dosing, [...] latex, morphine, oxycodone, penicillins, and tramadol. * Luz Dougherty - 08/20/2023 2:30 PM EDT Bettie [...] All pertinant portions of the clinical support worker documentation was reviewed and I agree with their assessment. Luz Dougherty Ortho Nurse - Established Patient Intake Room#: room 2--- pt here today for 3 wk follow-up from OV 07/23/23 for a RT. ABD repair. Pt rates her pain on a scale of 3/10 today. Pt states she is doing better and seems to be progressing. Pt did ambulate in with a walker. Pt states she is interested in Physcial Therapy through [facility]. Date: 08/20/2023 2:38 PM Patient: Bettie Burns MR#: [id number] : 1945 Age: 78 y.o. Referring Physician: [...] TENDON REPAIR Right 07/07/2023 Laterality: Right; Surgeon: Yesi Ohara MD; Location: [facility] REVISION ARTHROPLASTY HIP BOTH ACETABULAR & FEMORAL COMPONENTS Right 07/07/2023 Laterality: Right; Surgeon: Yesi Ohara MD; Location: [facility] HIP REPLACEMENT 2021 ABLATION NERVE RADIOFREQUENCY PULSED 09/2018 for a-fib with [employer] [facility] APPENDECTOMY BREAST LUMPECTOMY FOOT SURGERY HEART CATHETERIZATION no stents RI ENDOMETRIAL CRYOABLATION REMOVAL BILIARY DUCT/GALLBLADDER CALCULI/DEBRIS PERCUTANEOUS [...] oxycodone, penicillins, and tramadol. documented in this encounterVan Wert County Hospital04-08-2024 Miscellaneous Notes* Telephone Encounter - Ray Wills LPN - 08/10/2023 12:45 AM EDT Theresa 08/12/23 Cmp, mg 07/15/23 documented in this encounterAshtabula [facility] Hospital04-08-2024 Telephone encounter Note* Telephone Encounter - Ray Wills LPN - 08/10/2023 12:45 AM EDT Theresa 08/12/23 Cmp, mg 07/15/23 [facility]03-21-20[facility] History of Present illness Narrative* Eva [...] 07/23/2023 2:45 PM Patient: Bettie Burns MR#: [id number] : 1945 Age: 78 y.o. Referring Physician: Luz Dougherty Insurance: Payor: MEDICARE [employer] HMO OR [...] TENDON REPAIR Right 07/07/2023 Laterality: Right; Surgeon: Yesi Ohara MD; Location: [facility] REVISION ARTHROPLASTY HIP BOTH ACETABULAR & FEMORAL COMPONENTS Right 07/07/2023 Laterality: Right; Surgeon: Yesi Ohara MD; Location: [facility] HIP REPLACEMENT 2021 ABLATION NERVE RADIOFREQUENCY PULSED 09/2018 for a-fib with [employer] [facility] APPENDECTOMY BREAST LUMPECTOMY FOOT SURGERY HEART CATHETERIZATION no stents RI ENDOMETRIAL CRYOABLATION REMOVAL BILIARY DUCT/GALLBLADDER CALCULI/DEBRIS PERCUTANEOUS [...] latex, morphine, oxycodone, penicillins, and tramadol. * Luz Dougherty - 07/23/2023 2:30 PM EDT MRS [...] no erythema, drainage or evidence of dehiscence. [place] intact. Calves are soft and nontender with [...] All pertinant portions of the clinical support worker documentation was reviewed. Luz Dougherty I have reviewed the findings of the clinical support worker and agree with their assessment. Luz Dougherty Ortho Nurse - Established Patient Intake [...] 07/23/2023 2:45 PM Patient: Bettie Burns MR#: [id number] : 1945 Age: 78 y.o. Referring Physician: Luz Dougherty Insurance: Payor: MEDICARE AET[employer] HMO OR [...] TENDON REPAIR Right 07/07/2023 Laterality: Right; Surgeon: Yesi Ohara MD; Location: [facility] REVISION ARTHROPLASTY HIP BOTH ACETABULAR & FEMORAL COMPONENTS Right 07/07/2023 Laterality: Right; Surgeon: Yesi Ohara MD; Location: [facility] HIP REPLACEMENT 2021 ABLATION NERVE RADIOFREQUENCY PULSED 09/2018 for a-fib with [employer] [facility] APPENDECTOMY BREAST LUMPECTOMY FOOT SURGERY HEART CATHETERIZATION no stents RI ENDOMETRIAL CRYOABLATION REMOVAL BILIARY DUCT/GALLBLADDER CALCULI/DEBRIS PERCUTANEOUS [...] for maintainence, [facility]/pharmacy #[id number], 165, cm, 02/11/23 10:41:00 EDT, Height/Length Dosing, [...] oxycodone, penicillins, and tramadol. documented in this encounterVan Wert County Hospital03-15-2024 Miscellaneous Notes* Telephone Encounter - Estela [...] she was willing. slm documented in this encounterUniversity Hospitals Elyria Medical CenterExosite [id number] Telephone encounter Note* Telephone Encounter - Ashia [...] the ER and she was willing. slm [facility]03-06-2024 Miscellaneous Notes* Nursing Notes - Dolly Liao [...] daughter and . * Op Note - Ysei Ohara MD - 2023 5:54 AM EST DATE OF PROCEDURE: July 07, 2023 ATTENDING PHYSICIAN: Yesi Ohara M.D. 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 PROCEDURE PERFORMED: Unlisted procedure of right hip and pelvis, dual-row suture anchor repair of 100% massive abductor tear of right hip, work equivalent similar to CPT 09891 Periarticular injection of right hip. ANESTHESIA: General. [...] it as a CPT similar to that, 67834. ATTENDING/ASSISTING PARTICIPATION: This operation could not have been safely performed (without compromising the technical results or length of the procedure) without the assistance of a skilled surgical consultant. A surgical consultant was medically necessary for positioning, retraction and [...] OPERATIVE/PROCEDURE NOTE Bettie Burns 77 y.o. female [id number] SURGEON Surgeons and Role: * Yesi Ohara MD - Primary PERPETUAL INVENTORY CLERK MEDINA Richardson ANESTHESIOLOGIST [employer]IV[employer]ITY REGISTRAR: Chance Ngo CRNA; PALAK Barrett SURGICAL STAFF Loan Broker: Kisha Karimi RN; Whit Govea, RICARDO Nurse [...] Implant Name Type Inv. Item Serial No. Operating Theatre Technician Lot No. LRB No. Used Action ANCHORS, 5.5 NON PUNCHING - [id number] ANCHORS, 5.5 NON PUNCHING HIST ARTHREX [id number] Right 1 Implanted ANCHORS, 5.5 NON PUNCHING - [id number] ANCHORS, 5.5 NON PUNCHING HIST ARTHREX [id number] Right 3 Implanted SPECIMENS ID Type Source Tests Collected by Time Destination A : Right hip incisional fluid (1-2) (Anaerobic & Aerobic) Fluid/Swab - Other SURGICAL WOUND ANAEROBE CULTURE Yesi Ohara MD 07/07/2023 1427 B : Right hip fluid (cell count, defferential, & culture) Fluid, Unspecified FLUID, UNSPECIFIEDBODY FLUID CELL COUNT Yesi Ohara MD 07/07/2023 1429 C : Right hip suture (1-3) (Anaerobic & Aerobic) Surgical Wound SURGICAL WOUND FUNGUS CULTURE, ACID FAST CULTURE, ANAEROBE CULTURE Yesi Ohara MD 07/07/2023 1434 Matheus Barrera APRN-ENROLLMENT MANAGEMENT DIRECTOR July 07, 2023 3:28 PM * Nursing Notes - Chelsea Bledsoe RN - 07/07/2023 10:52 AM EST Unable to doppler right dorsalis pedis pulse. documented in this encounterVan Wert County Hospital03-06-2024 Nurse Note* Nursing Notes - Dolly [...] patient discharged home with daughter and . [facility]03-06-[facility] Hospital Discharge instructions* Discharge Instructions* Carmen [...] at all times - Use a leg crotch breaker to get in and out of bed [...] - 2023 12:01 PM EST Contact Office ([phone]) if: > Any falls or injuries > [...] incision or operative leg. documented in this [facility]03-06-2024 History of Present illness Narrative* Carmen Sebastian [...] scheduled for 07/23/23 @ 2:30 pm. * Luz Deric Dougherty - 2023 7:21 AM EST [...] LUMPECTOMY FOOT SURGERY HEART CATHETERIZATION no stents RI ENDOMETRIAL CRYOABLATION REMOVAL BILIARY DUCT/GALLBLADDER CALCULI/DEBRIS PERCUTANEOUS [...] 0 Equipment Available wheeled walker;elevated toilet seat;shower chair;store leader Cognitive Status Examination Orientation Status (Cognition) oriented [...] Supine to Sit, Rehab Eval Level of [place]: Supine/Sit stand-by assist Physical Assist/Nonphysical Assist: Supine/Sit 1 person assist Transfer Skill: Sit to Stand, Rehab Eval Level of [place]: Sit/Stand contact guard Physical Assist/Nonphysical Assist: Sit/Stand 1 person assist Weight-Bearing Restrictions: Sit/Stand toe touch weight-bearing Assistive Device for Transfer: Sit/Stand wheeled walker Upper Body Dressing Level of [place] independent Physical Assist/Nonphysical Assist set-up required Lower Body Dressing Level of [place] maximum assist (25% patients effort) Physical Assist/Nonphysical Assist 1 person assist Assistive Device store leader General Therapy Interventions Planned Therapy Interventions (OT Eval) ADL retraining;balance training;transfer training Clinical Impression Co-evaluation/co-treatment performed? Yes, combination of simultaneous billable and individual billable skilled care was necessary due to medical complexity and functional deficits Patient Instruction/Education comments Pt instructed on LB dressing techniques donning underwear and shorts min assist in sitting and standing with training on use of store leader to maintain hip precautions Rehab Potential (OT [...] hygiene training Therapist Information License # [id number] 1. Pt will complete LB dressing SBA [...] LUMPECTOMY FOOT SURGERY HEART CATHETERIZATION no stents RI ENDOMETRIAL CRYOABLATION REMOVAL BILIARY DUCT/GALLBLADDER CALCULI/DEBRIS PERCUTANEOUS [...] Supine to Sit, Rehab Eval Level of [place]: Supine/Sit stand-by assist Physical Assist/Nonphysical Assist: Supine/Sit 1 person assist Transfer Skill: Sit To Stand, Rehab Eval [place] (Sit-Stand Transfers) contact guard Physical Assist/Nonphysical Assist: Sit/Stand 1 person assist Weight-Bearing Restrictions: Sit/Stand toe touch weight-bearing Assistive Device For Transfer: Sit/Stand 2 wheeled walker Gait Skills, PT Eval Level of [place]: Gait contact guard Physical Assist/Nonphysical Assist: Gait [...] educated on hip precautions, use of leg crotch breaker and weight bearing status. Pteducated to only [...] DISCUSSED WITH DR OHARA. documented in this [facility]03-06-2024 Hospital course Narrative* Chance Mahoney MD - 2023 7:27 AM EST Images from the original note were not included. Discharge Summary Name: Bettie Burns Age: 78 y.o. Birthday: 1945 Admit Date: 07/07/2023 9:13 AM Discharge Date: 07/08/23 Discharge Time: midday Discharge Unit: Med/Surg Admission Information Admitting Physician: Yesi Ohara MD Discharge Information Discharge Physician: Chance [...] 2023 Lab Results Component Value Date ALT 06/25/2023 AST 32 06/25/2023 ALKPHOS 54 06/25/2023 [...] Provider Department Dept Phone 07/23/2023 2:[address] [facility] [phone] documented in this encounterVan Wert County Hospital03-06-2024 Surgery Postoperative evaluation and management note* Op Note - Yesi Ohara MD - 2023 5:54 AM EST DATE OF PROCEDURE: July 07, 2023 ATTENDING PHYSICIAN: Yesi Ohara M.D. 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 PROCEDURE PERFORMED: Unlisted procedure of right hip and pelvis, dual-row suture anchor repair of 100% massive abductor tear of right hip, work equivalent similar to CPT 25639 Periarticular injection of right hip. ANESTHESIA: General. ANESTHESIOLOGIST: Per record. ESTIMATED BLOOD LOSS: 50 mL. COMPLICATIONS: None. INTRAVENOUS FLUIDS: Adequate. SPECIMENS: Fluid for culture. INSTRUMENTATION USED: Arthrex suture anchor 5.5 x 19.1 x 4 mm. INDICATIONS: Betite is a 77-year-old female with a history [...] it as a CPT similar to that, [id number]. ATTENDING/ASSISTING PARTICIPATION: This operation could not have been safely performed (without compromising the technical results or length of the procedure) without the assistance of a skilled surgical consultant. A surgical consultant was medically necessary for positioning, retraction and instrume ntation. [facility] [employer] [id number] Nurse Note* Nursing Notes - Aidee Field RN - 2023 4:10 AM EST Assessment remains unchanged from previous. Neuro checks WN, abductor pillow in place. Call light within reach. [facility] [employer] [id number] Nurse Note* Nursing Notes - Aidee Field RN - 2023 12:05 AM EST Assessment remains unchanged from previous. Neuro checks WNL, abductor pillow in place. Denies futher needs, call light within reach. [facility] [employer] [id number] Consult note* Chance Mahoney MD - 07/07/2023 [...] LUMPECTOMY FOOT SURGERY HEART CATHETERIZATION no stents RI ENDOMETRIAL CRYOABLATION REMOVAL BILIARY DUCT/GALLBLADDER CALCULI/DEBRIS PERCUTANEOUS [...] metabolic panel in the morning GI prophylaxis. [facility]03-05-2024 Consult note* Chance Mahoney MD - [...] LUMPECTOMY FOOT SURGERY HEART CATHETERIZATION no stents RI ENDOMETRIAL CRYOABLATION REMOVAL BILIARY DUCT/GALLBLADDER CALCULI/DEBRIS PERCUTANEOUS [...] the morning GI prophylaxis. [facility] Note* Nursing Notes - Marcella [...] light in reach. FAITH intact flashing green. [facility]03-05-2024 Nurse Note* Sara Garcia RN - 07/07/2023 4:00 PM EST Patient transferred to [facility] via cart in stable condition. [...] Fire score of: 2 documented in [facility] Nurse Surgical operation note* Sara Garcia RN - 07/07/2023 4:00 PM EST Patient transferred to [facility] via cart in stable condition. Report given to RICARDO Kim. Cart left in locked and lowest position with side rails up x2. Snack and call light given to patient. Monitorsand alarms on and attached to patient. [facility]03-05-2024 Nurse Surgical operation note* Edison Perez RN - 07/07/2023 3:30 PM EST Patient transported to PACU with Damián TILLEY. Reports given to Sara SILVA at 1530H. [facility]03-05-2024 Surgery Postoperative evaluation and management note* Brief Op Note - MEDINA Richardson - 07/07/2023 3:28 PM EST POST OPERATIVE/PROCEDURE NOTE Bettie Burns 77 y.o. female [id number] SURGEON Surgeons and Role: * Yesi Ohara MD - Primary PERPETUAL INVENTORY CLERK MEDINA Richardson ANESTHESIOLOGIST COLLEGE OR UNIVERSITY REGISTRAR: Chance Ngo CRNA; PALKA Barrett SURGICAL STAFF Loan Broker: Kisha Karimi RN; Whit Govea, RN Nurse [...] Implant Name Type Inv. Item Serial No. Operating Theatre Technician Lot No. LRB No. Used Action ANCHORS, 5.5 NON PUNCHING - [id number] ANCHORS, 5.5 NON PUNCHING HIST ARTHREX [id number] Right 1 Implanted ANCHORS, 5.5 NON PUNCHING - [id number] ANCHORS, 5.5 NON PUNCHING HIST ARTHREX [id number] Right 3 Implanted SPECIMENS ID Type Source Tests Collected by Time Destination A : Right hip incisional fluid (1-2) (Anaerobic & Aerobic) Fluid/Swab - Other SURGICAL WOUND ANAEROBE CULTURE Yesi Ohara MD 07/07/2023 1427 B : Right hip fluid (cell count, defferential, & culture) Fluid, Unspecified FLUID, UNSPECIFIEDBODY FLUID CELL COUNT Yesi Ohara MD 07/07/2023 1429 C : Right hip suture (1-3) (Anaerobic & Aerobic) Surgical Wound SURGICAL WOUND FUNGUS CULTURE, ACID FAST CULTURE, ANAEROBE CULTURE Yesi Ohara MD 07/07/2023 1434 Matheus Barrera APRN-ENROLLMENT MANAGEMENT DIRECTOR July 07, 2023 3:28 PM [facility] [employer] [id number] Nurse Surgical operation note* Whit Govea RN - 07/07/2023 2:04 PM EST OR 3 room temp: 65.1F Humidity: 44% Fire score of: 2 [facility] [employer] [id number] Nurse Note* Nursing Notes - Chelsea Bledsoe RN - 07/07/2023 10:52 AM EST Unable to doppler right dorsalis pedis pulse. [facility] [employer] [id number] Miscellaneous Notes* Telephone Encounter - Jacqueline Sparrow RN - 06/19/2023 12:01 PM EST Surgeon: Dr Yesi Ohara Type of surgery: Open R hip [...] to Dr Ohara office. documented in [facility] Kisskissbankbank [id number] Telephone encounter Note* Telephone Encounter - Jacqueline Sparrow RN - 06/19/2023 12:01 PM EST Surgeon: Dr Yesi Ohara Type of surgery: Open R hip [...] on risk, holding Eliquis and Celebrex question. [facility] [employer] [id number] Telephone encounter Note* Telephone Encounter - Mundo Diaz MD - 06/19/2023 12:01 PM EST Okay to proceed with surgery at moderate risk Can use Celebrex Hold Eliquis for 2 days resume after surgery [employer] Work Phone: [phone] Telephone encounter Note* Telephone Encounter - Jacqueline Sparrow RN - 06/19/2023 12:01 PM EST Clearance note faxed back to Dr Ohara office. [employer]02-15-2024 History of Present illness Narrative* Eva Landryclair [...] year ago with Dr. Denver Hughes in [place]. Pt states she is looking for a second opinion due to having issues from this past surgery. Date: 06/18/2023 2:32 PM Patient: Bettie Burns MR#: [id number] : 1945 Age: 77 y.o. Referring Physician: Yesi Ohara MD Insurance: Payor: MEDICARE [employer] HMO OR PPO / Plan: MEDICARE [...] APPENDECTOMY BREAST LUMPECTOMY FOOT SURGERY HEART CATHETERIZATION RI ENDOMETRIAL CRYOABLATION REMOVAL BILIARY DUCT/GALLBLADDER CALCULI/DEBRIS PERCUTANEOUS [...] to morphine, oxycodone, penicillins, and tramadol. * Yesi Ohara MD - 06/18/2023 2:10 PM EST [...] tendons as discussed in detail above. 3. Gtatj-hs-sgbcyobf amount of fluid along the lateral aspect [...] screening, scheduling an appointment for [facility] and the potential surgical date, and reviewing [...] APPENDECTOMY BREAST LUMPECTOMY FOOT SURGERY HEART CATHETERIZATION RI ENDOMETRIAL CRYOABLATION REMOVAL BILIARY DUCT/GALLBLADDER CALCULI/DEBRIS PERCUTANEOUS W/ IMAGE REMOVAL CATARACT (PEM) ROTATOR CUFF REPAIR History reviewed. No pertinent family history. Social History Socioeconomic History Marital status: Tobacco Use Smoking status: Never Smokeless tobacco: Never Social Determinants of Health Food Insecurity: No Food Insecurity (06/02/2023) Received from [employer] Hunger Screening Within the past 12 months [...] Morphine Oxycodone Penicillins Tramadol documented in this [facility]01[facility] History of Present illness Narrative* Mundo Diaz [...] Medical History: Diagnosis Date [place] hx of Arrhythmia 12/2016 ATRIAL FIBRILLATION Arthritis Breast cancer [place] 11/14/2015 LEFT COVID-19 03/2020 History of bleeding [...] by Amber Quiñonez MD at [facility] () ARTHROSCOPY REPAIR ROTATOR CUFF SHOULDER Right 05/16/2020 Performed by Melchor Rivera DO at [facility] ARTHROSCOPY SHOULDER Right 05/16/2020 Performed by Melchor Rivera DO at [facility] BREAST BIOPSY Left 2016 BREAST LUMPECTOMY Left 11/14/2015 WITH RADIATION BREAST SURGERY Left 2012 lumpectomy CATARACT EXTRACTION CHOLECYSTECTOMY COLONOSCOPY Coronary angiogram and left ventricular gram/pressure N/A 08/08/2021 Performed by Bertram Lal MD at [facility] CARDIAC CATH LABS EYE SURGERY [...] STARKS MD Referring Physician: Elliot Starks MD [address] [place] [address] documented in this encounterUniversity Hospitals Elyria Medical CenterZiarco Hawthorn [id number] History of Present illness Narrative* Luz Boudreaux - 05/14/2023 9:30 AM EST Ortho Nurse - Patient Intake Room#: 1 --- CEO R Hip pain, had R THR in [...] 05/14/2023 9:44 AM Patient: Bettie Burns MR#: [id number] : 1945 Age: 77 y.o. Referring Physician: [...] [x]cane, []bracing Are you followed by a culled fruit packer? [x] [] Name: Dr. Waleska [place] - [facility] Are you followed by pain management? [x] [] Name: Dr. Wilian Wayne @ [facility] Are you followed by any other specialists? [x] [] Name: Oncolgist - Dr. Choi [facility] Urologist - Dr. Christian Bourne Outpatient [...] Use Does pt have dentures? no * Yesi Ohara MD - 05/14/2023 9:30 AM EST [...] abductor muscles as well as ESR/CRP and Melvin and Chromium labs today. I will see [...] APPENDECTOMY BREAST LUMPECTOMY FOOT SURGERY HEART CATHETERIZATION RI ENDOMETRIAL CRYOABLATION REMOVAL BILIARY DUCT/GALLBLADDER CALCULI/DEBRIS PERCUTANEOUS [...] Morphine Oxycodone Penicillins Tramadol documented in [facility] Evaluation note* Encounter Date Diagnosis Assessment Notes Treatment Notes Treatment Clinical Notes Mar, Acute non-recurrent maxillary si nusitis (ICD-10 - J01.00) Discussed diagnosis with patient. Instructed to take ATB as directed and complete entire course even if asymptomatic. OTC Tylenol or ibuprofen for discomfort. Saline nasal spray prn congestion. Flonase nasal spray prn congestion. OTC cough medication prn cough. Push fluids and rest. Cool mist humidier. Immediate evaluation if worsening symptoms. Patient to notify office should symptoms persist ornot improve. Pt verbalizes understanding and agrees with tx plan. [facility] Other 10-11-2023 Hospital Discharge instructions Patient Education [...] provider. Document Revised: 08/29/2021 Document Reviewed: 08/29/2021 [employer] Patient Education 2022 [employer]. Follow Up Care 11/06/2022 15:31:52 With:Paul VILLEGAS, Axel Palacios, URL, URO Address: When:Within 3 Month(s) [facility] Evaluation note* Encounter Date Diagnosis Assessment Notes Treatment Notes Treatment Clinical Notes Nov, Dysuria (ICD-10 - R30.0) [facility] Other 06-29-2023 Evaluation note* Encounter Date Diagnosis Assessment Notes Treatment Notes Treatment Clinical Notes Oct, Frequent UTI (ICD-10 - N39.0) Pt requests Urology referral. Discussed also getting CT to move along process. Oct,yshidrotic eczema (ICD-10 - L30.1)Will treat with steroid cream prn [facility] Other 06-26-2023 Evaluation note* Encounter Date Diagnosis Assessment Notes Treatment Notes Treatment Clinical Notes Oct, Dysuria (ICD-10 - R30.0) [facility] Other 05-11-2023 Miscellaneous Notes* Telephone Encounter - Ngozi Adams RN - 09/11/2022 11:43 AM EDT Order faxed to [facility] and pt is aware. Ngozi Adams RN * Telephone Encounter - Ngozi Adams RN - 09/11/2022 9:51 AM EDT Pt called to request yearly Mammogram order I have pended order as previously completed Pt requests to fax to Nori Lema [phone] BRM/HM: please review and sign if agreeable Ngozi Adams RN documented in this encounterClerm[facility]04-[facility] Evaluation note* Encounter Date Diagnosis Assessment Notes Treatment Notes Treatment Clinical Notes Aug, Dysuria (ICD-10 - R30.0) [facility] Other 03-16-2023 Evaluation note* Encounter Date Diagnosis Assessment Notes Treatment Notes Treatment Clinical Notes Jul, Acute bronchitis due to other sp ecified organisms (ICD-10 - J20.8) Bronchitis: Care Instructions material was printed Pt is acutely sick with acute complicated bronchitis Recommend: Antibiotics: Azithromycin 50 mg po daily for 5 days Cough: Benzonatate Jul,Migraine syndrome (ICD-10 - G43.909)chronic - addressed adequately with imitrex at 25mg Jul,OAB (overactive bladder) (ICD-10 - N32.81)chronic and improved on present med [facility] Other 02-20-2023 Evaluation note* Encounter Date Diagnosis Assessment Notes Treatment Notes Treatment Clinical Notes Jun, Dysuria (ICD-10 - R30.0) [facility] Other 02-03-2023 Evaluation note* Encounter Date Diagnosis Assessment Notes Treatment Notes Treatment Clinical Notes Jun, OAB (overactive bladder) (ICD-10 - N32.81) [facility] Other 02-01-2023 Evaluation note* Encounter Date Diagnosis Assessment Notes Treatment Notes Treatment Clinical Notes Jun, OAB (overactive bladder) (ICD-10 - N32.81) Patient request to try new medication reviewed side effect profile. Patient declines urology or GYNreferral at this time. Jun,Essential hypertension (ICD-10 - I10)reviewed and updated medications she will follow-up with cardiology in Jun,Hypokalemia (ICD-10 - E87.6)Reviewed and updated medications. Discussed foods that are high in potassium Jun,Right lumbar pain (ICD-10 - M54.50)Follow-up with Dr. Rivera as scheduled in June. She does have limping with her gait. [facility] Other 05-26-2022 Miscellaneous Notes* Telephone Encounter - Tin Choi MD - 09/26/2021 5:13 PM EDT Okay to change to screening mammogram. Order signed. ASIYA Ford * Telephone Encounter - Mikaela Thompson RN - 09/26/2021 2:33 PM EDT Pt scheduled for diagnostic mamm tomorrow @ [facility]. Hospital calls to ask if this could be changed to a screening mammogram since the pt is greater than 2 years from diagnosis? Mikaela Thompson RN documented in this encounterClermont County HospitalEvaluation + Plan note Future Appointments Appointment Date:05/27/2023 08:45:00 AM Scheduled Provider:Lue MD, Axel Mcfarland:[facility] Appointment Type:URO Office Visit [facility] evaluation + Plan note Future Appointments Appointment Date:07/22/2024 10:30:00 AM Scheduled Provider: Location:[facility] Appointment Type:Urology CALL PAT FT Appointment Date:07/25/2024 08:15:00 AM Scheduled Provider: Location:[facility] Appointment Type:Urology FT [facility] evaluation + Plan note Future Appointments Appointment Date:07/22/2024 10:30:00 AM Scheduled Provider: Location:[facility] Appointment Type:Urology CALL PAT FT Appointment Date:07/25/2024 08:15:00 AM Scheduled Provider: Location:[facility] Appointment Type:Urology FT Diagnostic Tests Pending * Urine Culture 06/22/24 [facility] evaluation + Plan note Future Appointments Appointment Date:09/16/2024 11:30:00 AM Scheduled Provider: Location:[facility] Appointment Type:Urology CALL PAT FT Appointment Date:09/19/2024 08:00:00 AM Scheduled Provider: Location:[facility] Appointment Type:Urology FT [facility] evaluation + Plan note Future Appointments Appointment Date:01/25/2025 08:00:00 AM Scheduled Provider:Maria E Osman PA-C Location:[facility] Appointment Type:URO Office Visit [facility] evaluation + Plan note Future Appointments Appointment Date:03/14/2025 08:00:00 AM Scheduled Provider:Maria E Osman PA-C Location:[facility] Appointment Type:URO Office Visit [facility] evaluation + Plan note Future Appointments Appointment Date:04/19/2025 08:30:00 AM Scheduled Provider:Maria E Osman PA-C Location:[facility] Appointment Type:URO Office Visit [facility] evaluation note* Diagnosis Encounter for screening mammogram for malignant neoplasm of breast- Primary Other screening mammogram [facility]* Diagnosis Malignant neoplasm of upper-outer quadrant of left breast in female, estrogen receptor positive (HCC)- Primary documented in this encounter [facility] noteNo InformationNoboone hospital center Logicbro[employer] Other Evaluation note* Diagnosis Encounter for screening mammogram for malignant neoplasm of breast- Primary Other screening mammogram documented in this encounter [facility] noteNo assessment information [facility] Work Phone: Evaluation note* Diagnosis Pain in prosthetic joint, initial encounter- Primary Primary osteoarthritis of right hip Primary localized osteoarthrosis, pelvic region and thigh documented in this encounter [facility]* Diagnosis Right hip pain- Primary Pain in joint, pelvic region and thigh Pre-op testing- Primary Preoperative examination, unspecified Essential (primary) hypertension Unspecified essential hypertension Abnormal finding of blood chemistry, unspecified Abnormal coagulation profile Tear of rotator cuff of right hip, initial encounter 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, initial encounter documented in this encounter [facility]* Diagnosis Status post revision of total hip- Primary Hip joint replacement by other means Pre-op testing Preoperative examination, unspecified Tear of rotator cuff of right hip, initial encounter 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, initial encounter Acute postoperative pain of right hip documented in this encounter [facility]* Diagnosis Tear of gluteus minimus tendon, right, initial encounter- Primary documented in this encounter [facility]* Diagnosis Right hip pain- Primary Pain in joint, pelvic region and thigh documented in this encounter [facility]* Diagnosis Onset Date Resolution Status Dysuria noneactive [facility] Work Phone: Evaluation note* Diagnosis Hx of total hip arthroplasty, right- Primary documented in this encounter [facility]* Diagnosis Paroxysmal atrial fibrillation (CMS-HCC)- Primary Atrial fibrillation Primary hypertension Unspecified essential hypertension Chronic coronary artery disease Coronary atherosclerosis of unspecified type of vessel, chehalis or graft documented in this encounter [facility]* Diagnosis Paroxysmal atrial fibrillation (CMS-HCC)- Primary Atrial fibrillation Unstable angina (CMS-HCC) Intermediate coronary syndrome SOB (shortness of breath) Shortness of breath documented in this encounter [facility]* Diagnosis Hx of total hip arthroplasty, right- Primary documented in this encounter [facility]* Diagnosis Paroxysmal atrial fibrillation (CMS-HCC) Atrial fibrillation documented in this encounter [facility]* Diagnosis Paroxysmal atrial fibrillation (CMS-HCC) Atrial fibrillation documented in this encounter [facility]* Diagnosis Primary hypertension- Primary Unspecified essential hypertension 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 (CMS-HCC) documented in this encounter [facility]* Diagnosis Paroxysmal atrial fibrillation (CMS-HCC)- Primary Atrial fibrillation Benign hypertension Essential hypertension, benign documented in this encounter [facility]* Diagnosis Paroxysmal atrial fibrillation (CMS-HCC)- Primary Atrial fibrillation Primary hypertension Unspecified essential hypertension Palpitations documented in this encounter [facility]* Diagnosis Paroxysmal atrial fibrillation (CMS-HCC) Atrial fibrillation documented in this encounter [facility]* Diagnosis Onset Date Resolution Status Admit Date Dysuria acuteJuly 2024 8:53am [facility] Work Phone: Evaluation note* Diagnosis Seborrheic keratosis, inflamed- Primary Inflamed skin tag Milia Sebaceous cyst [facility] Diagnosis SOB (shortness of breath)- Primary Shortness of breath Syncope, unspecified syncope type Bradycardia Other specified cardiac dysrhythmias Paroxysmal atrial fibrillation (CMS-HCC) Atrial fibrillation documented in this encounter [facility] SystemHistory general Narrative - Reported* Type Description Date Medical History Dysuria Medical HistoryOsteoarthritis of right hipMedical HistoryParoxysmal atrial fibrillationMedical HistoryInsomniaMedical HistoryEssential hypertensionMedical HistoryFatigueMedical HistoryLumbar back painMedical HistoryPROLAPSE, VAGINAL WALL, RECTOCELEMedical HistoryHip pain, rightMedical HistoryAcute URIMedical HistoryCOVIDMedical HistoryAcute UTI (urinary tract infection)Medical History Migraine syndromeMedical HistoryPain of right scapulaMedical HistoryAbnormal mammogram of left breastMedical HistoryHx of breast cancerSurgical History [id number] HistoryRight hip replacement12/16/2021Hospitalization HistorySEE SURGICAL HX [facility] Other Hospital course Narrative No data available for this section [facility] Hospital Discharge instructions* Attachments The following attachments cannot be sent through Care Everywhere. * [facility] AMB SMOKING CESSATION LINKS documented in this encounterAviIn[facility] SystemHospital Discharge instructions No data available for this section [facility] InstructionsNot on filedocumented in this [...] for this section [facility] reason for referral (narrative)* Diagnostic Procedure Only (Routine) - Pending ReviewSpecialtyDiagnoses / ProceduresReferred By ContactReferred To ContactBR IMAGING Diagnoses Encounter for screening mammogram for malignant neoplasm of breast Procedures AUGUSTINA SCREENING W YAW SCREENING DIGITAL BREAST TOMOSYNTHESIS BI SCREENING MAMMOGRAPHY BI 2-VIEW BREAST INC Tin Miguel MD [address] [place] [address] [facility] [address] [place] [address] Referral IDStatusReasonStart DateExpiration DateVisits RequestedVisits [id number] Review Auto-Generated Referral / [facility] for referral (narrative)* Diagnostic Procedure Only (Routine) - Pending ReviewSpecialtyDiagnoses / ProceduresReferred By Contact Referred To ContactBR IMAGING Diagnoses Encounter for screening mammogram for malignant neoplasm of breast Procedures AUGUSTINA SCREENING W YAW SCREENING DIGITAL BREAST TOMOSYNTHESIS BI SCREENING MAMMOGRAPHY BI 2-VIEW BREAST INC Tin Miguel MD [address] [place] [address] [place] [address] [place] [address] Referral IDStatusReasonStart DateExpiration DateVisits RequestedVisits [id number] Review Auto-Generated Referral [facility] for referral (narrative)* (Routine)SpecialtyDiagnoses / ProceduresReferred By ContactReferred To [facility] REV LOC [address] [place] [address] Referral IDStatusReasonStart DateExpiration DateVisits RequestedVisits Authorized [facility] for referral (narrative)* Consultation (Routine) - Patient to ArrangeSpecialtyDiagnoses / ProceduresReferred By ContactReferred To ContactPhysical Therapy Diagnoses Right hip pain Luz Dougherty [address] [place] [address] Referral IDStatusReasonStart DateExpiration DateVisits RequestedVisits [id number] to Arrange4/18/03052/ Scheduling Instructions . * Diagnostic X-Ray (Routine) - New RequestSpecialtyDiagnoses / Procedures Referred By ContactReferred To Contact Diagnoses Right hip pain Procedures XR HIP WITH PELVIS RIGHT ElaJermaineLuz M [address] [place] [address] Referral IDStatusReasonStart DateExpiration DateVisits RequestedVisits [id number] Request/ [facility] HospitalReason for referral (narrative)* Diagnostic Procedure Only (Routine) - Pending ReviewSpecialtyDiagnoses / ProceduresReferred By Contact Referred To ContactBR IMAGING Diagnoses Encounter for screening mammogram for malignant neoplasm of breast Procedures AUGUSTINA SCREENING W YAW SCREENING DIGITAL BREAST TOMOSYNTHESIS BI SCREENING MAMMOGRAPHY BI 2-VIEW BREAST INC CAD Tin Choi MD [address] [place] [address] [place] [address] [facility] [address] [place] [address] Referral IDStatusReasonStart DateExpiration DateVisits RequestedVisits [id number] Review Auto-Generated Referral / [facility] HospitalReason for referral (narrative)No reason for referral information availableBarney Children'S [facility] Work Phone: Reason for visit Narrative* Diagnostic X-Ray (Routine) - New RequestSpecialtyDiagnoses / ProceduresReferred By ContactReferred To Contact Diagnoses Hx of total hip arthroplasty, right Procedures XR HIP WITH PELVIS RIGHT Matheus Barrera APRN-ENROLLMENT MANAGEMENT DIRECTOR [address] [place] [address] Phone: tel: fax: Referral IDStatusReasonStwausaukee DateExpiration DateVisits RequestedVisits [id number] Request/ [facility] Summary Purpose Family History Relationship Condition Age at Onset Recorded Date/T nilam father Unknown motherDeceasedUnknown Advance Directives TypeDate RecordedPatient RepresentativeExplanationAdvance Directives/Living Will 06/25/2023 9:17 AMDURABLE POWER OF AMMUNITION SUPERVISOR FOR HEALTHCARE 06/25/23Advance Directives/Living Will06/25/2023 9:13 AMLIVING WILL 06/25/23Code StatusDate ActivatedDate InactivatedCommentsFull Code07/07/2023 3:27 PM Advance Directive Response Recorded Date/ Time Advance Directives No November 17 6:19pm Date ActivatedDate InactivatedComments07/07/2023 3:27 PM Advance Directive Response Recorded Date/ Time Advance Directives No November 17 5:19pm TypeDate RecordedPatient RepresentativeExplanationLiving Will05/21/2020 9:37 AM Durable Power of Attorney05/21/2020 9:27 AMDurable Power of Attorney05/16/2020 6:05 AMLiving Will05/16/2020 6:04 AMNameRelationshipHealthcare Agent Relationship CommunicationJoseph FraileySpouseHealth Care Agent* Samantha BenedictFirst Alternate Health Care Agent* NameRelationshipHealthcare Agent RelationshipCommunicationJoseph FraileySpouse Health Care Agent* Samantha SybilterFirst Alternate Health Care Agent* NameRelationshipHealthcare Agent RelationshipCommunicationJoseph FraileySpouse Health Care Agent* Samantha SeamJonathanaughterFirst Alternate Health Care Agent* NameRelationshipHealthcare Agent RelationshipCommunicationJoseph FraileySpouse Health Care Agent* Samantha SeamDorinaterFirst Alternate Health Care Agent* NameRelationshipHealthcare Agent RelationshipCommunicationJoseph FraileySpouse Health Care Agent* Samantha SeamonDaughterFirst Alternate Health Care Agent* NameRelationshipHealthcare Agent RelationshipCommunicationJoseph FraileySpouse Health Care Agent* Samantha SeamonDaughterFirst Alternate Health Care Agent* NameRelationshipHealthcare Agent RelationshipCommunicationJoseph FraileySpouse Health Care Agent* Samantha SeamonDaughterFirst Alternate Health Care Agent* NameRelationshipHealthcare Agent RelationshipCommunicationJoseph FraileySpouse Health Care Agent* Samantha SeamonDaughterFirst Alternate Health Care Agent* NameRelationshipHealthcare Agent RelationshipCommunicationJoseph FraileySpouse Health Care Agent* Samantha SeamonDaughterFirst Alternate Health Care Agent* NameRelationshipHealthcare Agent RelationshipCommunicationJoseph FraileySpouse Health Care Agent* Samantha SeamonDaughterFirst Alternate Health Care Agent* NameRelationshipHealthcare Agent RelationshipCommunicationJoseph FraileySpouse Health Care Agent* Samantha SeamonDaughterFirst Alternate Health Care Agent* NameRelationshipHealthcare Agent RelationshipCommunicationJoseph FraileySpouse Health Care Agent* Samantha SeamonDaughterFirst Alternate Health Care Agent* NameRelationshipHealthcare Agent RelationshipCommunicationJoseph FraileySpouse Health Care Agent* Samantha SeamonDaughterFirst Alternate Health Care Agent* TypeDate RecordedPatient RepresentativeExplanationLiving Will05/21/2020 9:37 AM Durable Power of Attorney05/21/2020 9:27 AMDurable Power of Attorney05/16/2020 6:05 AMLiving Will05/16/2020 6:04 AMNameRelationshipHealthcare Agent Relationship CommunicationJoseph FraileySpouseHealth Care Agent* Samantha [facility] Health Care Agent* Reason for Referral SpecialtyDiagnoses / ProceduresReferred By ContactReferred To Contact Diagnoses Hx of total hip arthroplasty, right Procedures XR HIP WITH PELVIS RIGHT Yesi Ohara MD [address] [place] [address] Referral IDStatusReasonStart DateExpiration DateVisits RequestedVisits [id number] Request/[id number] / Procedures Referred By ContactReferred To Contact Diagnoses Tear of gluteus minimus tendon, right, initial encounter Procedures XR HIP WITH PELVIS RIGHT Luz Dougherty [address] [place], [place] [id number] Referral IDStatusReasonStart DateExpiration DateVisits RequestedVisits [id number] Request/[id number] / Procedures Referred By ContactReferred To Contact Diagnoses Pain in prosthetic joint, initial encounter Procedures MRI HIP RIGHT WITHOUT CONTRAST RI MRI LOWER EXTREM JT, W/O CONTRAST Yesi Ohara MD [address] [place] [address] Referral IDStatusStephanieasonStart DateExpiration DateVisits RequestedVisits [id number] Request/[id number] / Procedures Referred By ContactReferred To Contact Diagnoses Pain in prosthetic joint, initial encounter Procedures COBALT AND CHROMIUM,WB Yesi Ohara MD [address] [place] [address] Referral IDStatusStephanieasonStwausaukee DateExpiration DateVisits RequestedVisits [id number] Request/[id number] / Procedures Referred By ContactReferred To Contact Diagnoses Primary osteoarthritis of right hip Procedures XR HIP WITH PELVIS RIGHT Yesi Ohara MD [address] [place] [address] Referral IDStatusAceBuffalo DateExpiration DateVisits RequestedVisits [id number] Request/ Reason *FU 11/12 [place] office Diagnosis 1 Frequent UTI (N39.0) Referral Organization [facility] Referring Provider First Name Elliot Referring Provider Last Name Maria Luisa Referring Provider Specialty Family [facility] Referred Organization [facility] Referred Provider AXEL MILLER Referred Address [address] [facility] [address],[place], [place] Referred Provider Specialty Urology Referral Priority Routine [...] section and content) DATE CREATED AUTHOR 10/28/2017 DATE CREATED AUTHOR AUTHOR'S ORGANIZ ATION 03/21/2020 [facility] DATE CREATED AUTHOR AUTHOR'S ORGANIZ ATION 09/13/2021 [facility] Electrical Project Manager DATE CREATED AUTHOR AUTHOR'S ORGANIZ ATION 06/11/2022 [facility] DATE CREATED AUTHOR AUTHOR'S ORGANIZ ATION 09/19/2023 [facility] DATE CREATED AUTHOR AUTHOR'S ORGANIZ ATION 06/24/2024 [facility] DATE CREATED AUTHOR AUTHOR'S ORGANIZ ATION 06/26/2024 [facility] DATE CREATED AUTHOR AUTHOR'S ORGANIZ ATION 07/17/2024 [facility] DATE CREATED AUTHOR AUTHOR'S ORGANIZ ATION 09/13/2024 [facility] DATE CREATED AUTHOR AUTHOR'S ORGANIZ ATION 09/18/2024 [facility] DATE CREATED AUTHOR AUTHOR'S ORGANIZ ATION 11/12/2024 [facility] DATE CREATED AUTHOR AUTHOR'S ORGANIZ ATION 12/16/2024 [facility] DATE CREATED AUTHOR AUTHOR'S ORGANIZ ATION 12/28/2024 [facility] DATE CREATED AUTHOR AUTHOR'S ORGANIZ ATION 01/13/2025 [facility] DATE CREATED AUTHOR AUTHOR'S ORGANIZ ATION 02/03/2025 [facility] DATE CREATED AUTHOR AUTHOR'S ORGANIZ ATION 02/16/2025 [facility] DATE CREATED AUTHOR AUTHOR'S ORGANIZ ATION 02/21/2025 [facility] DATE CREATED AUTHOR AUTHOR'S ORGANIZ ATION 02/25/2025 [facility] DATE CREATED AUTHOR AUTHOR'S ORGANIZ ATION 02/25/2025 [facility] DATE CREATED AUTHOR AUTHOR'S ORGANIZ ATION 02/27/2025 [facility] DATE CREATED AUTHOR AUTHOR'S ORGANIZ ATION 03/02/2025 [facility] DATE CREATED AUTHOR AUTHOR'S ORGANIZ ATION 03/04/2025 [facility] Source Comments (unrecognize d section and content) In the event this informatio n is protected by the Federal Confidentiality of Alcohol and Drug Abuse Patient Records regulations: The Federal rules restrict any use of the information to criminally investigate or prosecute any alcohol or drug abuse patient.[facility] HospitalIn the event this information is protected by the Federal Confidentiality of Alcohol and Drug Abuse Patient Records regulations: The Federal rules restrict any use of the information to criminally investigate or prosecute any alcohol or drug abuse patient.[facility] HospitalIn the event this information is protected by the Federal Confidentiality of Alcohol and Drug Abuse Patient Records regulations: The Federal rules restrict any use of the information to criminally investigate or prosecute any alcohol or drug abuse patient.[facility] HospitalIn the event this information is protected by the Federal Confidentiality of Alcohol and Drug Abuse Patient Records regulations: The Federal rules restrict any use of the information to criminally investigate or prosecute any alcohol or drug abuse patient.[facility] Reason for Visit (unrecogniz ed section and content) ReasonCommentsRadiology MammogramReasonCommentsLab OrdersReasonCommentsOrders SpecialtyDiagnoses / ProceduresReferred By ContactReferred To Contact Diagnoses Primary osteoarthritis of right hip Procedures XR HIP WITH PELVIS RIGHT Yesi Ohara MD [address] [place] [address] Referral IDStatusReasonStart DateExpiration DateVisits RequestedVisits [id number] Request/[id number]dczknef MRI ResultsSpecialtyDiagnoses / ProceduresReferred By ContactReferred To Contact Diagnoses Tear of rotator cuff of right hip, initial encounter 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, initial encounter Tear of rotator cuff of right hip, initial encounter [S76.011A] 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, initial encounter [T84.090A] Procedures RI PELVIS/HIP JOINT SURGERY UNLISTED RI REVISE TOTAL HIP REPLACEMENT GLUTEUS MEDIUS TENDON REPAIR REVISION ARTHROPLASTY HIP BOTH ACETABULAR & FEMORAL COMPONENTS Yesi Ohara MD [address] [place] [address] Referral IDStatusReasonStart DateExpiration DateVisits RequestedVisits [id number] Op VisitSpecialtyDiagnoses / ProceduresReferred By ContactReferred To Contact Diagnoses Tear of gluteus minimus tendon, right, initial encounter Procedures XR HIP WITH PELVIS RIGHT Luz Dougherty [address] [place] [address] Referral IDStatusReasonStart DateExpiration DateVisits RequestedVisits [id number] Request/[id number]-ko SpecialtyDiagnoses / ProceduresReferred By ContactReferred To Contact Diagnoses Right hip pain Procedures XR HIP WITH PELVIS RIGHT BroneryLuz Deric [address] [place] [address] Referral IDStatusReasonStart DateExpiration DateVisits RequestedVisits [id number] Request/[id number] Exam With MammogramReasonCommentsPainSpecialtyDiagnoses / ProceduresReferred By Contact Referred To Contact Diagnoses Hx of total hip arthroplasty, right Procedures XR HIP WITH PELVIS RIGHT Yesi Ohara MD [address] [place] [address] Referral IDStatusReasonStart DateExpiration DateVisits RequestedVisits [id number] Request/[id number]-ixpfg pt concerns of afib per smart watch wants seen sooner. sched w/pt pt will arrive at 11:30ReasonOnset DateCommentsMed Prtbww4210/19/2023easonOnset DateCommentsPre op /16/2024easonCommentsFollow-upHypertensionLeg SwellingReason CommentsMed RefillReasonCommentsFollow-upReasonOnset DateCommentsMed Refill 07/27/2024ReasonCommentsFollow-upOV F/U 1 YR NO TESTS L/S FRS, SCHED W/PTReason CommentsSuspicious Skin LesionReasonCommentsFollow-up5MO F/U-L/S EKK-ABNORMAL EKG 01/29 [facility]LL[facility]UE-LABS 02/03 [facility]-SCHD APPT W/PT-PT DID NOT WANT TO SPEAKTO A NURSE & WANTED TO KEEP THIS APPT AFTER TALKING W/PCPReasonOnset DateComments Event Monitor Alert03/06/2025 Care Teams (unrecognized sec tion and content) Team MemberRelationshipSpecialtyStart DateEnd Date Elliot Starks MD [address] [place] [address] PCP - GeneralFamily Practice11/26/15Team MemberRelationshipSpecialtyStart DateEnd Date Elliot Starks MD [address] [place] [phone] PCP - GeneralFamily Practice11/26/15Team MemberRelationshipSpecialtyStart DateEnd Date Elliot Starks MD [address] [place] [phone] PCP - GeneralFamily Medicine11/26/15 Team Status: Inactive Member Role Status Dates Elliot Starks MD Attending Provider Active Team MemberRelationshipSpecialtyStart DateEnd Date Elliot Starks MD [address] [place] [address] [place] [address] PCP - GeneralFamily Medicine05/11/23Team MemberRelationshipSpecialtyStart DateEnd Date Elliot Starks MD [address] [place] [address] [place] [address] PCP - GeneralFamily Medicine05/11/23Team MemberRelationshipSpecialtyStart DateEnd Date Elliot Starks MD [address] [place] [address] [place] [address] PCP - GeneralFamily Medicine05/11/23Team MemberRelationshipSpecialtyStart DateEnd Date Elliot Starks MD [address] [place] [address] [place] [address] PCP - GeneralFamily Medicine05/11/23Team MemberRelationshipSpecialtyStart DateEnd Date Elliot Starks MD [address] [place] [address] [place] [address] PCP - GeneralFamily Medicine05/11/23Team MemberRelationshipSpecialtyStart DateEnd Date Elliot Starks MD [address] [facility] [place] [address] PCP - GeneralFamily Medicine05/11/23Team MemberRelationshipSpecialtyStart DateEnd Date Elliot Starks MD [address] [facility] [place] [address] PCP - GeneralFamily Medicine05/11/23Team MemberRelationshipSpecialtyStart DateEnd Date Elliot Starks MD [address] [facility] [place] [address] PCP - GeneralFamily Medicine05/11/23Team MemberRelationshipSpecialtyStart DateEnd Date Elliot Starks MD [address] [facility] [place] [place] [address] PCP - GeneralFamily Medicine11/26/15 Team Status: Active Member Role Status Dates [...] Active Start: April 30, 2024 End: April 30Ree Oliver ProviderActiveStart: April 30, 2024 End: April 30, 2024 Team Status: Inactive Member Role Status Dates Elliot Starks MD Primary Care Provide r, Attending Provider Active Start: May 09, 2024 End: May 09, 2024Team MemberRelationshipSpecialtyStart DateEnd Date Elliot Starks MD [address] [place] [address] PCP - Zootatc67/14/17Team MemberRelationshipSpecialtyStart [place] [address] [place] [address] PCP - General07/15/23Team MemberRelationshipSpecialtyStart [place] [address] [place] [address] PCP - Mrtiagc26/14/17Team MemberRelationshipSpecialtyStart DateEnd Date Elliot Starks MD [address] [place] [address] PCP - Nauoqid28/14/17Team MemberRelationshipSpecialtyStart [place] [address] [place] [address] PCP - General07/15/23Team MemberRelationshipSpecialtyStart DateEnd Date Elliot Starks MD [address] [place] [address] PCP - General07/15/23Team MemberRelationshipSpecialtyStart DateEnd Date Elliot Starks MD [address] [place] [address] PCP - General07/15/23 Team Status: Active Member Role Status Dates Elliot Starks MD Primary Care Provide r, Attending Provider Active Start: May 11, 2024 Team Status: Inactive Member Role Status Dates Elliot Starks MD Primary Care Provider Active Start: June 21, 2024 End: June 21Valentino Robert ProviderActiveStart: June 21, 2024 End: June 21, 2024Team MemberRelationshipSpecialtyStart DateEnd Date Elliot Starks MD [address] [place] [address] [facility]05/11/23Team MemberRelationshipSpecialtyStart [place] [address] [place] [address], [place] [address] PCP - [facility] Medicine05/11/23Team MemberRelationshipSpecialtyStart [place] [address] [place] [address] PCP - General07/15/23Team MemberRelationshipSpecialtyStart DateEnd Date Elliot Starks MD [address] [place] [address] PCP - General07/15/23Team MemberRelationshipSpecialtyStart DateEnd Date Elliot Starks MD [address] [place] [address] PCP - General07/15/23Team MemberRelationshipSpecialtyStart DateEnd Date Elliot Starks MD [address] [place] [address] PCP - General07/15/23 Team Status: Inactive Member Role Status Dates Elliot Starks MD Primary Care Provider Active Start: November 29, 2024 End: November 29, 2024Saúl Ramos ProviderActiveStart: November 29, 2024 End: November 29, 2024Team MemberRelationshipSpecialtyStart DateEnd Date Elliot Starks MD [facility]09/26/22Team MemberRelationshipSpecialtyStart DateEnd Date Elliot Starks MD [facility]09/26/22 Team Status: Active Member Role Status Dates Elliot Starks MD Primary Care Provider Active Start: December 18, 2024 Tyshawn Snow DOAttending ProviderActiveStart: December 18, 2024 Team Status: Active Member Role Status Dates Elliot Starks MD Primary Care Provider Active Start: December 19, 2024 Tyshawn Snow DOAttending ProviderActiveStart: December 19, 2024 Team Status: Active Member Role Status Dates Elliot Starks MD Primary Care Provider Active Start: December 19, 2024 Ayanna Saini CMAAttending ProviderActiveStart: December 19, 2024 Team Status: Inactive Member Role Status Dates Elliot Starks MD Primary Care Provider Active Start: December 29, 2024 End: December 29, 2024Elliot Starks MDAttpranav ProviderActiveStart: December 29, 2024 End: December 29, 2024Team MemberRelationshipSpecialtyStart DateEnd Date Elliot Starks MD [address] [place] [address] [facility]07/15/23Team MemberRelationshipSpecialtyStart DateEnd Date Elliot Starks MD [address] [place] [address] [facility]07/15/23 Team Status: Active Member Role Status Dates Elliot Starks MD Primary Care Provider Active Start: January 29, 2025 Ian Connell DOAttending ProviderActiveStart: January 29, 2025 Team Status: Active Member Role Status Dates Elliot Starks MD Primary Care Provider Active Start: January 31, 2025 Ayanna Parveen CMAAttending ProviderActiveStart: January 31, 2025 Team Status: Inactive Member Role Status Dates Elliot Starks MD Primary Care Provider Active Start: February 03, 2025 End: February 03, 2025Elliot Starks MDAttending ProviderActiveStart: February 03, 2025 End: February 03, 2025 Team Status: Active Member Role Status Dates Elliot Starks MD Primary Care Provider Active Start: February 03, 2025 Elliot Starks MDAttending ProviderActiveStart: February 03, 2025 Team Status: Active Member Role Status Dates Elliot Starks MD Primary Care Provider Active Start: February 03, 2025 Elliot Starks MDOther ProviderActiveStart: February 03, 2025 Marisa Alba MDAttending ProviderActiveStart: February 03, 2025 Team MemberRelationshipSpecialtyStart DateEnd Date Elliot Starks MD [address] [place] [address] [facility] General07/15/23Team MemberRelationshipSpecialtyStart DateEnd Date Elliot Starks MD [address] [place] [address] PCP General07/15/23 Goals (unrecognized section and content) Goals may be documented in a n alternate section Scheduled Active and Recently Administ ered Medications (unrecognized section and content) Medication Order////10/2023 acetaminophen (TYLENOL) tablet 1,000 mg 1,000 mg, Oral, EVERY 6 HOURS NON-STANDARD, First dose on Thu07/07/23 at 1845, Until Discontinued, Post-op/Post-Proc * 1818 (Given - Provider: Marcella Lozano RN) * 2348 (Given - Provider: Aidee Field, RICARDO) * 0607 (Given - Provider: Aidee Field RN) * 1511 (Given - Provider: Dolly Liao RN) * 1845 (Canceled Entry - Provider: System Discharge - Comment: Automatically canceled at discontinue of medication order) apixaban (ELIQUIS) tablet 2.5 mg 2.5 mg, Oral, EVERY 12 HOURS, First dose on Thu07/08/23 at 0900, Until Discontinued, Start in AM dayafter surgery, Indications: Venous Thromboembolism, Post-op/Post-Proc * 0904 (Given - Provider: Dolly Liao RN) Atenolol (TENORMIN) tablet 75 mg 75 mg, Oral, DAILY, First dose on Thu07/08/23 at 0900, Until Discontinued * 0904 (Given - Provider: Dolly Liao RN) ceFAZolin (ANCEF) 2 g in dextrose 100 mL premix IVPB 2 g, Intravenous, Administer over 30 Minutes, EVERY 8 HOURS NON-STANDARD, First dose on Thu07/07/23 at 2145, Until Discontinued, Post-op/Post-Proc * 2103 ($$New Bag$$ - Provider: Aidee Field RN) * 2133 (Stopped - Provider: Aidee Field RN) * 0608 ($$New Bag$$ - Provider: Aidee Field RN) * 1511 ($$New Bag$$ - Provider: Dolly Liao RN) dexAMETHasone (DECADRON) injection 10 mg (COMPLETED) 10 mg, Intravenous, EVERY 24 HOURS, 1 dose, First dose on Thu07/08/23 at 1530, 24 hours post op, Post-op/Post-Proc * 1511 (Given - Provider: Dolly Liao RN) Docusate (COLACE) capsule 100 mg 100 mg, Oral, 2 TIMES DAILY, First dose on Thu07/07/23 at 1700, Until Discontinued, Post-op/Post-Proc * 1818 (Given - Provider: Marcella Lozano RN) * 0904 (Given - Provider: Dolly Liao RN) * 1700 (Canceled Entry - Provider: System Discharge - Comment: Automatically canceled at discontinue of medication order) hydroCHLOROthiazide (HYDRODIURIL) tablet 25 mg 25 mg, Oral, DAILY, First dose on Thu07/08/23 at 0900, Until Discontinued * 0904 (Given - Provider: Dolly Liao, RN) Lisinopril (PRINIVIL) tablet 20 mg 20 mg, Oral, DAILY, First dose on Thu07/08/23 at 0900, Until Discontinued * 0904 (Given - Provider: Dolly Liao RN) Pantoprazole (PROTONIX) tablet DR 40 mg 40 mg, Oral, DAILY, First dose on Thu07/08/23 at 0900, Until Discontinued, Indications: Continuationof Home Therapy, Inpt Stress Ulcer Prophylaxis * 0904 (Given - Provider: Dolly Liao RN) potassium chloride (KLOR-CON) tablet ER 10 mEq 10 mEq, Oral, DAILY, First dose on Thu07/08/23 at 0900, Until Discontinued * 0904 (Given - Provider: Dolly Liao RN) ROPivacaine (NAROPIN) 1 % [...] by pharmacy NOT for IV use, Intra-op/Intra-Proc * 1433 (Given - Provider: Whit Govea RN) vancomycin (VANCOCIN) 1,000 mg in dextrose 200 ml premix IVPB (COMPLETED) 1,000 mg (rounded from 973.5 mg = 15 mg/kg 64.9 kg Adjusted weight), Intravenous, ONCE, 1 dose, On Thu07/07/23 at 1015, Infuse at a rate of 1 gram/hour. Extravasation Risk, Pre-op/Pre-Proc * 1118 ($$New Bag$$ - Provider: Kari Moyer RN) vancomycin (VANCOCIN) 1,000 mg in dextrose 200 ml premix IVPB (COMPLETED) 1,000 mg, Intravenous, ONCE, 1 dose, On Thu07/08/23 at 0145, Infuse at a rate of 1 gram/hour. Extravasation Risk, Post-op/Post-Proc * 0009 ($$New Bag$$ - Provider: Aidee Field RN) * 0109 (Stopped - Provider: Aidee Field RN) Medication Order// Lactated ringers IV solution (CANCELED) Intravenous, at 75 mL/hr, CONTINUOUS, Starting on Thu07/07/23 at 1015, Until Thu07/07/23 at 1609, Pre-op/Pre-Proc * 1043 ($$New Bag$$ - Provider: Chelsea Bledsoe RN) * 1514 ($$New Bag$$ - Provider: Damián Saenz APRN-COLLEGE OR UNIVERSITY REGISTRAR) * 1647 (Stopped - Provider: Aidee Field RN) Sodium chloride 0.9% IV solution Intravenous, at 75 mL/hr, CONTINUOUS, Starting on Thu07/07/23 at 1645, Until Thu07/08/23 at 1920, Convert IV to PRN adapter post op day 1 if adequate oral intake, Post-op/Post-Proc * 1647 ($$New Bag$$ - Provider: Marcella Lozano RN) * 2200 (Rate/Dose Verify - Provider: Aidee Field RN) * 0208 (Rate/Dose Verify - Provider: Aidee Field RN) * 0633 (Rate/Dose Verify - Provider: Aidee Field RN) Medication Order// acetaminophen (TYLENOL) tablet 1,000 mg (COMPLETED) 1,000 mg, Oral, ONCE DIRECTED, 1 dose, Starting on Thu07/07/23 at 1003, Until Thu07/07/23 at 1043,See admin instructions, Administer 1 hour preop., Pre-op/Pre-Proc * 1043 (Given - Provider: Chelsea Bledsoe, RICARDO) bisacodyl (DULCOLAX) suppository 10 mg 10 mg, Rectal, DAILY NEEDED, Starting on Thu07/07/23 at 1637, Until Thu07/08/23 at 1920, constipation, Post-op/Post-Proc ceFAZolin (ANCEF) 2 g in dextrose 100 mL premix IVPB (COMPLETED) 2 g, Intravenous, Administer over 15 Minutes, FIVE PIECE EXPANSION MAKER HAND TO PROCEDURE, 1 dose, Starting on Thu07/07/23 at 1003, Until Thu07/07/23 at 1409, Other, Pre-operative antibiotic, Pre-op/Pre-Proc * 1354 (Given - Provider: Melchor Holcomb APRN-[employer] REGISTRAR) HYDROmorphone (DILAUDID) injection 0.5 mg 0.5 mg, Intravenous, EVERY 4 HOURS NEEDED, Starting on Thu07/07/23 at 1637, Until Thu07/08/23 at 1920, Severe Pain, Post-op/Post-Proc Ondansetron 4mg/2ml (ZOFRAN) injection 4 mg 4 mg, Intravenous, EVERY 4 HOURS NEEDED, Starting on Thu07/07/23 at 1637, Until Thu07/08/23 at 1920, Nausea / Vomiting, Post-op/Post-Proc * 0612 (Given - Provider: Aidee Field RN) oxyCODONE (ROXICODONE) tablet 5-10 mg 5-10 mg, Oral, EVERY 4 HOURS NEEDED, Starting on Thu07/07/23 at 1637, Until Thu07/08/23 at 1920, moderate-severe pain, If pain unrelieved with oxycodone, contact pharmacist to enter order for Oxycodone ER 10mg PO Q12H for 3 days, Post-op/Post-Proc * 1646 (Given - Provider: Marcella Lozano RN) * 2103 (Given - Provider: Aidee Field RN) senna-docusate (SENOKOT-S) 8.6-50 MG per tablet 2 tablet 2 tablet, Oral, 2 TIMES DAILY NEEDED, Starting on Thu07/07/23 at 1637, Until Thu07/08/23 at 1920, constipation, Post-op/Post-Proc Sodium chloride 0.9 % irrigation (CANCELED) NEEDED, Starting on Thu07/07/23 at 1432, Until Thu07/07/23 at 1539, Intra-op/Intra-Proc * 1432 (Given - Provider: Yesi Ohara MD - Comment: given to sterile field) sodium phosphate w/sodium biphosphate (FLEETS) enema 1 enema 1 enema, Rectal, DAILY NEEDED, Starting on Thu07/07/23 at 1637, Until Thu07/08/23 at 1920, Refractory Constipation, use per package instructions, Post-op/Post-Proc tranexamic acid (LYSTEDA) tablet 1,950 mg (COMPLETED) 1,950 mg, Oral, ONCE DIRECTED, 1 dose, Starting on Thu07/07/23 at 1003, Until Thu07/07/23 at 1042,See admin instructions, Administer 2 hours preop, Pre-op/Pre-Proc * 1042 (Given - Provider: Chelsea Bledsoe RN) [...] BE BASED ON THE PRIMARY CLINICAL RECORDS. [employer] [facility]. provides no warranty or guarantee of the accuracy or completeness of information in this document.
--- OUTSIDE RECORDS SUMMARY | 2025-03-13 20:52 | XMS_ITS | Encounter Summary ---
Author Organization [facility] Sys tem Address [facility] [id number] [address] [place] [address] Care Team Providers Care Processing Spec Name Role Phone Marine Glass MD Primary Care Provider [phone] Encounter Details DateTypeDepartmentCare Team (Latest Contact Info)Fjwepqzlkpl32/10/2025Orders Only [facility] [address] [place] [address] External, Scanning Provider Social History Tobacco UseTypesPacks/DayYears UsedDateSmoking Tobacco: FormerCigarettesQuit: 05/06/1989mokeless Tobacco: Never Comments:quit in 1989 Alcohol UseStandard Drinks/WeekCommentsYes0 (1 standard drink = 0.6 oz pure alcohol)socialPHQ-2AnswerDate RecordedTotal Guofb72406/25/2019AUDIT-CAnswerDate RecordedQ1: How often do you have a drink containing alcohol?Monthly or less 02/23/2025Q2: How many drinks containing alcohol do you have on a typical day when you are drinking?1 or Q3: How often do you have six or more drinks on one occasion?Never02/23/2025hildcareAnswerDate RecordedChildcare Eymelag1410/05/2018EmploymentAnswerDate RcfeqdgkAmikvyptdbPgbdmtm52/04/2019Hunger ScreeningAnswerDate RecordedWithin the past 12 months we worried whether our food would run out before we got money to buy more.Never True02/23/2025Within the past 12 months the food we bought just didn't last and we didn't have money to get more.Never True02/23/2025Purpose - LifeAnswerDate RecordedPurpose and direction in xdxjYzfbpmb62/12/2021CommentsNoSex and Gender Information ValueDate RecordedSex Assigned at XmktwLlxpue30/06/2019 11:19 AM ESTLegal Sex Sdlrzr9512/07/2014 11:36 AM EDTGender PlbreftrYyulov43/06/2019 11:19 AM ESTSexual OrientationNot on filedocumented as of this encounter Plan of Treatment DateTypeDepartmentCare Team (Latest Contact Info)Pmjkcuohtxw42/29/2025 3:30 PM ESTOffice Visit [facility] [address] [place] [address] Oscar Sandoval MD [address] [place] [address] documented as of this encounter Procedures Procedure NamePriorityDate/TimeAssociated DiagnosisCommentsEVENT MONITORRoutine 03/09/2025 11:25 AM ESTEVENT FIPNRFNAuqxyrz60/04/2025 11:23 AM ESTdocumented in this encounter Results * Event monitor (03/09/2025 11:25 AM EST)Anatomical RegionLateralityModality ChestN/AOther Narrative Authorizing ProviderResult TypeResult StatusScanning Provider ExternalCV CARDIAC SERVICES ORDERABLESFinal Result * Event monitor (03/07/2025 11:23 AM EST)Anatomical RegionLateralityModality ChestN/AOther Narrative Authorizing ProviderResult TypeResult StatusScanning Provider ExternalCV CARDIAC SERVICES ORDERABLESFinal Result documented in this encounter Visit Diagnoses Not on filedocumented in this encounter Additional Health Concerns AssessmentNoted TimePHQ-9 Depression Total Score: 10:41 AM EST documented as of this encounter Care Teams Team MemberRelationshipSpecialtyStart DateEnd Date Marine Glass MD [address] [place] [address] PCP - General07/15/23documented as of this encounter
--- OUTSIDE RECORDS SUMMARY | 2025-03-13 20:52 | XMS_ITS | Encounter Summary ---
Author Organization [facility] tem Address [facility] [id number] [address] [place] [address] Care Team Providers Care Clerical Car Checker Name Role Phone Marine Glass MD Primary Care Provider [phone] Encounter Details DateTypeDepartmentCare Team (Latest Contact Info)Dfiezzkkxhs31/03/2025Orders Only [facility] [address] [place] [address] External, Scanning Provider Social History Tobacco UseTypesPacks/DayYears UsedDateSmoking Tobacco: FormerCigarettesQuit: 05/06/1989mokeless Tobacco: Never Comments:quit in 1989 Alcohol UseStandard Drinks/WeekCommentsYes0 (1 standard drink = 0.6 oz pure alcohol)socialPHQ-2AnswerDate RecordedTotal Hyoum69806/25/2019AUDIT-CAnswerDate RecordedQ1: How often do you have a drink containing alcohol?Monthly or less 02/23/2025Q2: How many drinks containing alcohol do you have on a typical day when you are drinking?1 or Q3: How often do you have six or more drinks on one occasion?Never02/23/2025hildcareAnswerDate RecordedChildcare Nhybdcx0410/05/2018EmploymentAnswerDate WlzvetjjZffsibfjrvJhivlht58/04/2019Hunger ScreeningAnswerDate RecordedWithin the past 12 months we worried whether our food would run out before we got money to buy more.Never True02/23/2025Within the past 12 months the food we bought just didn't last and we didn't have money to get more.Never True02/23/2025Purpose - LifeAnswerDate RecordedPurpose and direction in nszxYpvcfab47/12/2021CommentsNoSex and Gender Information ValueDate RecordedSex Assigned at WqcuwTdcvaf68/06/2019 11:19 AM ESTLegal Sex Nrlyvt7912/07/2014 11:36 AM EDTGender XhetqucdRtpxbb89/06/2019 11:19 AM ESTSexual OrientationNot on filedocumented as of this encounter Plan of Treatment DateTypeDepartmentCare Team (Latest Contact Info)Nvocjefmyog91/29/2025 3:30 PM ESTOffice Visit [facility] [address] [place] [address] Oscar Sandoval MD [address] [place] [address] documented as of this encounter Procedures Procedure NamePriorityDate/TimeAssociated DiagnosisCommentsEVENT MONITORRoutine 03/01/2025 1:01 PM EDTdocumented in this encounter Results * Event monitor (03/01/2025 1:01 PM EDT)Anatomical RegionLateralityModalityChest N/AOther Narrative Authorizing ProviderResult TypeResult StatusScanning Provider ExternalCV CARDIAC SERVICES ORDERABLESFinal Result documented in this encounter Visit Diagnoses Not on filedocumented in this encounter Additional Health Concerns AssessmentNoted TimePHQ-9 Depression Total Score: 10:41 AM EST documented as of this encounter Care Teams Team MemberRelationshipSpecialtyStart DateEnd Date Marine Glass MD [address] [place] [id number] PCP - General3/13/24documented as of this encounter
== END 2025-03-13 20:49 | disposition home or self-care (01) ==
PROVIDERS: PCP Family Medicine; Visit Provider Family Medicine
DX: G47.33 Obstructive sleep apnea (adult) (pediatric) (principal)
CPT/HCPCS: 95811